=== PATIENT | female | born 1940 | race Caucasian/White ===

== ENCOUNTER 2023-04-19 05:32 | Inpatient (IN) | payer MEDICARE, OTHER, SELFPAY ==
[2023-04-19 05:36] VITALS: BP 184/84; PULSE 63; RESP 18; TEMP 36.6; O2SAT 98; BMI 31.8
--- NOTE | 2023-04-19 05:53 | PC.NURSE ---
patient states she began to develop pain to left knee yesterday before bed. denies any trauma, injury, falls. states pain got worse overnight and into the morning. was unable to move around this morning without increasing pain. tried ibuprofen without relief. left knee appears more swollen than right. pulses and sensation remain intact to bilateral lower extremities. pt states most of the pain is in her knee but pain also travels down calf and up into thigh. denies hip pain. area does not appear red or warm to touch.
--- NOTE | 2023-04-19 06:16 | ED.GENADUL1 ---
HPI - General Adult General Chief complaint: Extremity Injury, Lower Stated complaint: L KNEE PAIN Time Seen by Provider: 04/19/23 06:04 Source: patient Mode of arrival: ambulance History of Present Illness HPI narrative: cc - left knee pain Patient suddenly developed pain in the left knee. She tried tylenol around 1am but that did not help. She called 911 and they gave her Fentanyl on the way to our ED. Related Data Home Medications Medication Instructions Recorded Confirmed acyclovir 400 mg tablet 400 mg PO Q12H 04/19/23 04/19/23 aspirin 81 mg capsule 81 mg PO DAILY 04/19/23 04/19/23 atorvastatin 40 mg tablet 40 mg PO .once a day 04/19/23 04/19/23 carvedilol 12.5 mg tablet 12.5 mg PO Q12H 04/19/23 04/19/23 rivaroxaban 15 mg tablet (Xarelto) 15 mg PO Q24H 04/19/23 04/19/23 Allergies Allergy/AdvReac Type Severity Reaction Status Date / Time lenalidomide [From Revlimid] Allergy Rash Verified 04/26/23 12:40 pregabalin [From Lyrica] Allergy Rash Verified 04/26/23 12:40 oxybutynin AdvReac Mild Rash Verified 04/26/23 12:40 PFSH PFSH Medical History (Updated 04/26/23 @ 14:37 by Sherine Dooley MD) Surgical History (Updated 04/19/23 @ 11:32 by Letty Overton) Family History (Updated 04/19/23 @ 11:35 by Letty Overton) Mother Family history of CHF (congestive heart failure) Family history of diabetes mellitus Family history of stroke Sister Family history of CHF (congestive heart failure) Family history of diabetes mellitus Family history of hypertension Grandmother Family history of cancer Family history of diabetes mellitus Brother No problems noted. Father No problems noted. Social History (Updated 04/19/23 @ 11:38 by Letty Overton) Within the past year, how often did you have a drink containing alcohol: never Score interpretation: A score less than 3 is consistent with normal alcohol consumption. 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 afebrile General: Well-appearing and in no apparent distress. Skin: Warm, dry, no pallor noted. No rash. Cardiovascular: normal peripheral perfusion Respiratory: No accessory muscle use or respiratory distress. Musculoskeletal: marked swelling of the left knee. Tenderness to palpation throughout the left knee. Pain with patellar manipulation. She also has some popliteal tenderness. Remainder of the left LE with normal ROM, no calf tenderness, no pedal or ankle extremity edema/swelling Neurological: A&O x4. No cranial nerve dysfunction observed. No truncal ataxia. Moves all extremities. Sensation intact. Psychiatric: Cooperative and interactive. Normal mood and affect. Constitutional Vital Signs - 24 hr 04/19/23 05:36 Temperature 97.9 F Pulse Rate [Monitor Right] 63 Respiratory Rate 18 Blood Pressure [Right Arm] 184/84 H Pulse Oximetry 98 Oxygen Delivery Method Room Air Course Course Hospital Course: Patient presented to the emergency room yesterday with difficulty ambulating. Secondary to pain in her left knee. No injury. Patient was placed on steroids. She received 1 dose of Toradol into her creatinine came back as elevated, that was discontinued, maintain the steroids overnight. She got 1 dose this morning. She is able to ambulate with some pain but overall much improved. This point should be discharged home in improving condition. Medications see list. Follow-up with her PE CEP within the next week. Vital Signs Vital signs: Vital Signs Temperature 97.9 F 04/19/23 05:36 Pulse Rate 63 04/19/23 05:36 Respiratory Rate 18 04/19/23 05:36 Blood Pressure 184/84 H 04/19/23 05:36 Pulse Oximetry 98 04/19/23 05:36 Oxygen Delivery Method Room Air 04/19/23 05:36 Temperature 97.8 F 04/20/23 05:09 Pulse Rate 77 04/20/23 05:09 Respiratory Rate 18 04/20/23 09:27 Blood Pressure 174/75 H 04/20/23 05:09 Pulse Oximetry 93 L 04/20/23 05:09 Oxygen Delivery Method Room Air 04/20/23 05:09 Medical Decision Making MDM Narrative Medical decision making narrative: peripheral IV and RAD. Established on patient arrival. I asked the emergency Department nurse give the patient site Medrol 125 mg IV. XRays the left knee were obtained. The patient was unable to care for herself at home and despite getting pain medicine by EMS and steroid in the emergency Department she is still unable to ambulate appropriately to function at home and perform her activities of daily living. Call placed to the on-call physician to discuss admission. Dr. Do and I discussed this case and he will admit this patient on behalf of the patient's primary care provider, Dr. Mcfadden Imaging Data xr left knee: Radiologist's impression: FINDINGS: No acute fracture or dislocation is seen. There are mild degenerative changes of the left knee. There is a small left knee joint effusion. IMPRESSION: 1. Left knee joint effusion with no acute osseous abnormality seen. If there is concern for internal derangement, a nonemergent outpatient MRI is recommended. Electronically authenticated by: Malka DALLAS Date: 04/19/2023 06:55 Discharge Plan Discharge Chief Complaint: Extremity Injury, Lower Clinical Impression: Knee pain, left, Osteoarthritis of left knee Patient Disposition: Admitted as Observation Time of Disposition Decision: 08:16 Condition: Good Discharge Date/Time: 04/19/23 08:16
--- NOTE | 2023-04-19 06:33 | XR_ITS ---
The [address] [address] Patient Name: MARTHA GOMEZ MRN: [id number] date: 1940 Sex: F Assigned Patient Location: ER Current Patient Location: ER Accession/Order Number: [id number] Exam Date: 04/19/2023 06:33 Report Date: 04/19/2023 06:55 At the request of: MODESTO BETANCOURT Procedure: XR knee LT 4V EXAM: XR knee LT 4V HISTORY: left knee pain COMPARISON: Left knee radiographs dated 03/16/2023. TECHNIQUE: 4 views of the left knee were obtained. FINDINGS: No acute fracture or dislocation is seen. There are mild degenerative changes of the left knee. There is a small left knee joint effusion. IMPRESSION: 1. Left knee joint effusion with no acute osseous abnormality seen. If there is concern for internal derangement, a nonemergent outpatient MRI is recommended. Electronically authenticated by: Malka DALLAS Date: 04/19/2023 06:55
[2023-04-19] MEDS: METHYLPREDNISOLONE SOD SUCC PF 125 MG/2 ML VIAL IVP ×3 (06:51→19:57)
[2023-04-19 07:37] VITALS: BP 178/82; PULSE 78; RESP 20; O2SAT 97
[2023-04-19 08:48] VITALS: BP 199/78; PULSE 56; PULSE 60; RESP 16; TEMP 37.6; O2SAT 96; BMI 31.3
--- NOTE | 2023-04-19 10:19 | P.HP_ITS ---
H&P: HPI History of Present Illness Chief complaint: L KNEE PAIN Narrative: Presented to the emerged from with increasing left knee pain. Unable to ambulate. She was given hydromorphone and Demerol in the ER. No improvement. Still unable to ambulate secondary to the pain. We will admit patient for evaluation. [facility] Medical History (Updated 04/19/23 @ 11:32 by Letty Overton) Surgical History (Updated 04/19/23 @ 11:32 by Letty Overton) Family History (Updated 04/19/23 @ 11:35 by Letty Overton) Mother Family history of CHF (congestive heart failure) Family history of diabetes mellitus Family history of stroke Sister Family history of CHF (congestive heart failure) Family history of diabetes mellitus Family history of hypertension Grandmother Family history of cancer Family history of diabetes mellitus Brother No problems noted. Father No problems noted. Social History (Updated 04/19/23 @ 11:38 by Letty Overton) Within the past year, how often did you have a drink containing alcohol: never Score interpretation: A score less than 3 is consistent with normal alcohol consumption. 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 Highest level of school completed/degree received: some college, no degree Are you now , , , , never or living with a partner: Little interest or pleasure in doing things: nearly every day Feeling down, depressed, or hopeless: not at all Feel stressed/tense/nervous/anxious/difficulty sleeping: not at all Do you think of yourself as: straight/heterosexual Gender Identity: female Meds Home Medications and Allergies Home Medications Medication Instructions Recorded Confirmed Type acyclovir 400 mg tablet 400 mg PO Q12H 04/19/23 04/19/23 History amlodipine 2.5 mg tablet 2.5 mg PO .once a day 04/19/23 04/19/23 History amlodipine 5 mg tablet 5 mg PO .once a day 04/19/23 04/19/23 History aspirin 81 mg capsule 81 mg PO DAILY 04/19/23 04/19/23 History atorvastatin 40 mg tablet 40 mg PO .once a day 04/19/23 04/19/23 History carvedilol 12.5 mg tablet 12.5 mg PO Q12H 04/19/23 04/19/23 History rivaroxaban 15 mg tablet (Xarelto) 15 mg PO Q24H 04/19/23 04/19/23 History Allergies Allergy/AdvReac Type Severity Reaction Status Date / Time lenalidomide [From Revlimid] Allergy Rash Verified 04/19/23 05:57 pregabalin [From Lyrica] Allergy Rash Verified 04/19/23 05:57 oxybutynin AdvReac Mild Rash Verified 04/19/23 05:57 Exam Constitutional Vital Signs - 24 hr 04/19/23 05:36 04/19/23 07:37 04/19/23 08:48 Temperature 97.9 F 99.6 F Pulse Rate 78 56 L Pulse Rate [Monitor Right] 63 Respiratory Rate 18 20 16 Blood Pressure 178/82 H Blood Pressure [Left Arm] 199/78 H Blood Pressure [Right Arm] 184/84 H Pulse Oximetry 98 97 96 Oxygen Delivery Method Room Air Room Air 04/19/23 08:48 Temperature Pulse Rate Pulse Rate [Monitor Right] 60 Respiratory Rate 16 Blood Pressure Blood Pressure [Left Arm] Blood Pressure [Right Arm] Pulse Oximetry 96 Oxygen Delivery Method Room Air HENMT Common normals: normocephalic and moist oral mucous membranes Respiratory Common normals: normal respiratory effort, no retractions, no use of accessory muscles and clear to auscultation bilaterally Cardio Common normals: no JVD, regular rate and regular rhythm GI Common normals: Normal to inspection, nondistended, normoactive bowel sounds present, soft to palpation and non-tender Extremity Left lower extremity: no findings for knee joint Other: No rubor, calor of the left knee. Does have definite effusion on left knee Assessment and Plan Assessment and Plan (1) Knee pain, left: (2) Osteoarthritis of left knee: (3) Atrial fibrillation: (4) Diabetes: (5) Hypertension: (6) Kidney failure: Plan Left knee pain with inability to ambulate. We will have physical therapy work with her. Start patient on steroids and Toradol just for the first 24 hours. Likely DC tomorrow. May need rehab. Patient likely to stay just [address] patient in observation NIDDM-insulin sliding scale. Likely get worse with steroids. Monitor closely Hypertension-continue home medicationsMonitor closely Remote history of renal failure, will check labs, may need medication adjustment based onLaboratory evaluation
[2023-04-19 10:44] VITALS: BP 160/92; PULSE 61; RESP 14; TEMP 36.5; O2SAT 95
[2023-04-19 10:59] LABS: Basophils Percent Auto 0.1 % (0.2-2.0); Eosinophils Percent Auto 0.1 % (0.9-7.0); Hematocrit 40.2 % (36.0-48.0); Hemoglobin 13.1 g/dL (12.0-16.0); Immature Granulocytes Abs Auto 0.04 10^3/uL (0.00-0.03); Immature Granulocytes Pct Auto 0.4 % (0.0-0.5); Lymphocytes Absolute Auto 1.1 10^3/uL (1.2-3.8); Lymphocytes Percent Auto 10.8 % (20.5-60.0); Mean Corpuscular HGB Conc 32.6 g/dL (29.9-35.2); Mean Corpuscular Hemoglobin 30.9 pg (26.7-34.0); Mean Corpuscular Volume 94.8 fL (81.0-99.0); Mean Platelet Volume 11.1 fL (9.5-13.5); Monocytes Absolute Auto 0.1 10^3/uL (0.3-0.8); Monocytes Percent Auto 0.9 % (1.7-12.0); Neutrophils Absolute Auto 8.8 10^3/uL (1.4-6.5); Neutrophils Percent Auto 87.7 % (43.0-75.0); Platelet Count 191 10^3/uL (150-450); Red Blood Count 4.24 10^6/uL (4.20-5.40); Red Cell Distribution Width 13.2 % (11.0-15.0)
[2023-04-19 11:43] LABS: Erythrocyte Sedimentation Rate 34 mm/hr (<=30)
[2023-04-19 12:13] LABS: Anion Gap 16.1; BUN Creatinine Ratio 12.6; Calcium 8.5 mg/dL (8.5-10.1); Carbon Dioxide 23.4 mmol/L (21.0-32.0); Chloride 104 mmol/L (98-107); Estimated GFR (African America 21 (>=60); Estimated GFR (Non-African Ame 17 (>=60); Glucose 176 mg/dL (74-106); Potassium 4.5 mmol/L (3.5-5.1); Sodium 139 mmol/L (136-145); Uric Acid 5.7 mg/dL (2.6-6.0)
[2023-04-19 12:22] LABS: C Reactive Protein <0.2 mg/dL (<=1.0)
[2023-04-19] MEDS: ACYCLOVIR 200 MG CAPSULE 400 MG PO ×2 (12:33→22:05)
[2023-04-19] MEDS: KETOROLAC TROMETHAMINE 30 MG/ML VIAL 15 MG IVP (12:33)
[2023-04-19] MEDS: CARVEDILOL 12.5 MG TABLET PO ×2 (12:34→22:05)
[2023-04-19 14:11] VITALS: BP 169/72; PULSE 75; RESP 16; TEMP 36.4; O2SAT 96
--- NOTE | 2023-04-19 15:20 | SWNOTE1 ---
SW attempted to see pt, but she was sleeping. SW to check back later.
--- NOTE | 2023-04-19 16:11 | SWNOTE1 ---
SW met with pt to discuss dc needs. Pt does live at home with her , she stated he is worse than her. Pt's daughter does the grocery shopping for them, but she is having knee surgery soon. Her 2 sons also live close by and they also help as needed. Pt does have a rollater at home that she uses. Pt does have the laundry downstairs, but goes 1 step at a time. Pt does not use the upstairs. Pt was just up for the first time to go to the bathroom and she stated it went much better. SW and pt talked about therapy coming in to [facility] and will determine if she has any dc needs. Possible need for HH. Pt stated her had HH, but they just ended. She thinks it was [facility]. Pt then talked about going to the pool in [place] across the street to do rehab on her leg. SW let her know that if she does outpt rehab she cannot do HH. Pt is going to think about it. SW to stop back in tomorrow to re-asses after therapy works with her. SW did review IMM form, pt voiced understanding and had no questions. Pt signed form, original given to pt and copy placed in chart.
[2023-04-19] MEDS: RIVAROXABAN 10 MG TABLET 15 MG PO (19:57)
[2023-04-19 20:09] VITALS: BP 165/84; PULSE 93; RESP 18; TEMP 36.7; O2SAT 97
[2023-04-20] MEDS: METHYLPREDNISOLONE SOD SUCC PF 125 MG/2 ML VIAL IVP ×2 (01:12→05:53)
[2023-04-20 04:00] VITALS: BP 160/67; PULSE 73; RESP 16; TEMP 36.4; O2SAT 94
[2023-04-20 05:09] VITALS: BP 174/75; PULSE 77; RESP 18; TEMP 36.6; O2SAT 93
[2023-04-20 05:27] LABS: Basophils Percent Auto 0.1 % (0.2-2.0); Hemoglobin 13.1 g/dL (12.0-16.0); Immature Granulocytes Abs Auto 0.08 10^3/uL (0.00-0.03); Immature Granulocytes Pct Auto 0.5 % (0.0-0.5); Lymphocytes Absolute Auto 1.4 10^3/uL (1.2-3.8); Lymphocytes Percent Auto 8.3 % (20.5-60.0); Mean Corpuscular HGB Conc 32.8 g/dL (29.9-35.2); Mean Corpuscular Hemoglobin 30.7 pg (26.7-34.0); Mean Corpuscular Volume 93.7 fL (81.0-99.0); Mean Platelet Volume 11.3 fL (9.5-13.5); Monocytes Absolute Auto 0.2 10^3/uL (0.3-0.8); Monocytes Percent Auto 1.2 % (1.7-12.0); Neutrophils Absolute Auto 14.7 10^3/uL (1.4-6.5); Neutrophils Percent Auto 89.9 % (43.0-75.0); Platelet Count 190 10^3/uL (150-450); Red Blood Count 4.27 10^6/uL (4.20-5.40); White Blood Count 16.3 10^3/uL (4.0-11.0)
[2023-04-20 05:35] LABS: Erythrocyte Sedimentation Rate 34 mm/hr (<=30)
[2023-04-20 05:48] LABS: Anion Gap 17.4; BUN Creatinine Ratio 15.9; Calcium 8.5 mg/dL (8.5-10.1); Chloride 103 mmol/L (98-107); Estimated GFR (African America 21 (>=60); Estimated GFR (Non-African Ame 17 (>=60); Glucose 253 mg/dL (74-106); Potassium 4.4 mmol/L (3.5-5.1); Sodium 136 mmol/L (136-145)
[2023-04-20 05:54] LABS: C Reactive Protein <1.0 mg/dL (<=1.0)
--- NOTE | 2023-04-20 08:37 | P.DS_ITS ---
DS: Providers Provider Date of admission: 04/19/23 08:42 Primary care physician: CURT CLARK DS: Diagnosis Discharge Diagnosis (1) Knee pain, left: (2) Osteoarthritis of left knee: (3) Atrial fibrillation: (4) Diabetes: (5) Hypertension: (6) Kidney failure: Plan Left knee pain with inability to ambulate.? We will have physical therapy work with her.? Start patient on steroids and Toradol just for the first 24 hours.? Likely DC tomorrow.? May need rehab.? Patient likely to stay just [address] patient in observation NIDDM-insulin sliding scale.? Likely get worse with steroids.? Monitor closely Hypertension-continue home medicationsMonitor closely Remote history of renal failure, will check labs, may need medication adjustment based onLaboratory evaluation DS: Summary Hospital Course Hospital Course: Patient presented to the emergency room yesterday with difficulty ambulating. Secondary to pain in her left knee. No injury. Patient was placed on steroids. She received 1 dose of Toradol into her creatinine came back as elevated, that was discontinued, maintain the steroids overnight. She got 1 dose this morning. She is able to ambulate with some pain but overall much improved. This point should be discharged home in improving condition. Medications see list. Follow-up with her PE CEP within the next week. Status at Discharge Functional status at discharge: uses cane/walker Time Spent with Patient Time attestation: Total time spent providing and/or coordinating discharge services: Exam Constitutional Vital Signs - 24 hr 04/19/23 08:48 04/19/23 08:48 04/19/23 10:44 Temperature 99.6 F 97.7 F Pulse Rate 56 L 61 Pulse Rate [Monitor Right] 60 Respiratory Rate 16 16 14 Blood Pressure [Left Arm] 199/78 H Blood Pressure [Right Arm] 160/92 H Pulse Oximetry 96 96 95 Oxygen Delivery Method Room Air Room Air Room Air 04/19/23 14:11 04/19/23 20:09 04/20/23 04:00 Temperature 97.5 F L 98.1 F 97.6 F Pulse Rate 75 93 H 73 Pulse Rate [Monitor Right] Respiratory Rate 16 18 16 Blood Pressure [Left Arm] 165/84 H Blood Pressure [Right Arm] 169/72 H 160/67 H Pulse Oximetry 96 97 94 L Oxygen Delivery Method Room Air Room Air Room Air 04/20/23 05:09 Temperature 97.8 F Pulse Rate 77 Pulse Rate [Monitor Right] Respiratory Rate 18 Blood Pressure [Left Arm] Blood Pressure [Right Arm] 174/75 H Pulse Oximetry 93 L Oxygen Delivery Method Room Air Chest Common normals: inspection of chest normal Respiratory Common normals: normal respiratory effort, no use of accessory muscles and clear to auscultation bilaterally Cardio Common normals: no JVD, regular rhythm, S1 normal heart sound and S2 normal heart sound Extremity Common normals: abnormal to inspection (Mild swelling of left knee but overall much improved, no erythema) DS: Data Data Completed and Pending Labs on day of discharge: Labs from last 24 hours 04/20/23 04/19/23 04:55 10:28 WBC 16.3 H 10.0 RBC 4.27 4.24 Hgb 13.1 13.1 Hct 40.0 40.2 MCV 93.7 94.8 MCH 30.7 30.9 MCHC 32.8 32.6 RDW 13.0 13.2 Plt Count 190 191 MPV 11.3 11.1 Neut % (Auto) 89.9 H 87.7 H Lymph % (Auto) 8.3 L 10.8 L [place] % (Auto) 1.2 L 0.9 L Eos % (Auto) 0.0 L 0.1 L Baso % (Auto) 0.1 L 0.1 L Neut # (Auto) 14.7 H 8.8 H Lymph # (Auto) 1.4 1.1 L [place] # (Auto) 0.2 L 0.1 L Eos # (Auto) 0.0 0.0 Baso # (Auto) 0.0 0.0 Abs Immat Gran (auto) 0.08 H 0.04 H Imm/Tot Granulo (auto) 0.5 0.4 ESR 34 H 34 H Sodium 136 139 Potassium 4.4 4.5 Chloride 103 104 Carbon Dioxide 20.0 L 23.4 Anion Gap 17.4 16.1 BUN 42.0 H 34.0 H Creatinine 2.64 H 2.69 H Est GFR ( Amer) 21 L 21 L Est GFR (Non-Af Amer) 17 L 17 L BUN/Creatinine Ratio 15.9 12.6 Glucose 253 H 176 H Uric Acid 5.7 Calcium 8.5 8.5 C-Reactive Protein <1.0 <0.2 Discharge Plan Discharge Disposition: Home, Self-Care Condition: Good Discharge Medications: New prednisone 20 mg tablet 20 mg PO BID 3 Days Qty: 6 0RF Continued acyclovir 400 mg tablet 400 mg PO Q12H atorvastatin 40 mg tablet 40 mg PO .once a day carvedilol 12.5 mg tablet 12.5 mg PO Q12H Xarelto 15 mg tablet 15 mg PO Q24H aspirin 81 mg capsule 81 mg PO DAILY Activity: increase activity as tolerated and resume usual activities as tolerated Diet: regular diet Print Language: Syriac Patient Instructions: Prednisone (By mouth), Knee Pain (GEN) Forms: Portal Instructions Follow Up Appointments: Dr. Bogdan Tomas, April 26 @ 11:30 am Discharge Date/Time: 04/20/23 10:36
[2023-04-20] MEDS: CARVEDILOL 12.5 MG TABLET PO (09:26)
[2023-04-20 09:27] VITALS: RESP 18
[2023-04-20] MEDS: ACYCLOVIR 200 MG CAPSULE 400 MG PO (09:27)
--- NOTE | 2023-04-20 09:38 | CM.NOTE ---
Rounds made with Dr. Do. Plan for discharge is today. Currently Hailee uses a walker in the home she shares with her when needed. Her children live close and help with any grocery shopping or other needs they may have.
--- NOTE | 2023-04-20 09:43 | CM.NOTE ---
Hailee did not feel that she needed any services at this time.
--- NOTE | 2023-04-21 12:30 | CM.DCFOLLOWU ---
Person spoke with:patient How are you feeling? pain in knee again today How is your pain? she is icing it as the pain is going from her knee to her thigh Did you understand your discharge instructions? yes Do you have any questions about your discharge instructions? no Were you given any prescriptions at discharge? yes Were you able to get your prescriptions filled? yes Do you understand how to take your medications as ordered? yes Do you have any questions about your follow up appointment and do you plan to keep your follow up appointment? No questions and yes keeping follow up on 04/26/23 Is there anything else that you would like to discuss? N/A Questions/Comments/Concerns/Other: Advised to go to ER if pain worsens and concerns for it. Also advised to call her PCP to see if they have any other recommendations.
== END 2023-04-20 10:36 | disposition home or self-care (01) | DRG 554 ==
LOC: ER 08:31 → MS 08:46
PROVIDERS: Admitting Provider Family Medicine; Emergency Provider Family Medicine; PCP Family Medicine; Visit Provider Family Medicine
DX: M17.12 Unilateral primary osteoarthritis, left knee (principal); M25.562 Pain in left knee; I48.91 Unspecified atrial fibrillation; N19 Unspecified kidney failure; E11.9 Type 2 diabetes mellitus without complications; I10 Essential (primary) hypertension; Z82.49 Family history of ischemic heart disease and other diseases of the circulatory system; Z79.01 Long term (current) use of anticoagulants; Z79.82 Long term (current) use of aspirin; Z88.8 Allergy status to other drugs, medicaments and biological substances; Z83.3 Family history of diabetes mellitus; Z79.899 Other long term (current) drug therapy; Z82.3 Family history of stroke; Z80.9 Family history of malignant neoplasm, unspecified
CPT/HCPCS: 36415; 73564; 80048; 84550; 85025; 85652; 86140; 96374; 96375; 96376; 99285; J2930

== ENCOUNTER 2023-04-26 12:33 | Emergency (ER) | payer MEDICARE, OTHER, SELFPAY ==
[2023-04-26 12:36] VITALS: BP 141/71; PULSE 68; RESP 18; TEMP 36.3; O2SAT 99; BMI 31.0
[2023-04-26 12:46] LABS: Glucometer 213 mg/dL (74-106)
--- NOTE | 2023-04-26 12:51 | US_ITS ---
The [address] [address] Patient Name: MARTHA GOMEZ MRN: [id number] date: 1940 Sex: F Assigned Patient Location: ED.MAIN Current Patient Location: ER Accession/Order Number: [id number] Exam Date: 04/26/2023 13:15 Report Date: 04/26/2023 13:56 At the request of: FLORENCIA SANTIAGO Procedure: US venous doppler LE LT EXAMINATION: US venous doppler LE LT HISTORY: left thigh pain COMPARISON: No relevant comparison available. FINDINGS: REGION: Left knee THROMBI: None. COMPRESSIBILITY: Normal compressibility. FLOW: Normal waveform and antegrade flow between 5 and 20 cm/s. OTHER: Slightly complex 6.4 x 2.9 x 1.5 cm fluid collection medial to the knee. IMPRESSION: 1. No deep vein thrombus within the left lower extremity. 2. Complex fluid collection medial to the knee; fluid-filled bursa versus complex seroma versus hematoma. Electronically authenticated by: DIANN IBANEZ Date: 04/26/2023 13:56
--- NOTE | 2023-04-26 12:51 | ED_ITS ---
HPI - General Adult General Chief complaint: Dizziness Stated complaint: pre-syncope Time Seen by Provider: 04/26/23 12:44 Source: patient Mode of arrival: Wheelchair Limitations: physical limitation History of Present Illness HPI narrative: the patient has history of DM II who recently was admitted to the hospital for left knee arthritis at that time she was started on prednisone that she finished two days ago,the patient presented to us after she was evaluated by her medical doctor for possible dizziness and low blood pressure, and denied any nausea or vomiting or any decreased by mouth intake but she did mention that she is feeling weak and tired with no fever no chills she also mentioned having left thigh pain but no knee pain anymore and she came here by private car The dizziness is mostly when she standing up and she denies any chest pain or palpitation and any cough Review of systems otherwise negative Related Data Home Medications Medication Instructions Recorded Confirmed acyclovir 400 mg tablet 400 mg PO Q12H 04/19/23 04/19/23 aspirin 81 mg capsule 81 mg PO DAILY 04/19/23 04/19/23 atorvastatin 40 mg tablet 40 mg PO .once a day 04/19/23 04/19/23 carvedilol 12.5 mg tablet 12.5 mg PO Q12H 04/19/23 04/19/23 rivaroxaban 15 mg tablet (Xarelto) 15 mg PO Q24H 04/19/23 04/19/23 Allergies Allergy/AdvReac Type Severity Reaction Status Date / Time lenalidomide [From Revlimid] Allergy Rash Verified 04/26/23 12:40 pregabalin [From Lyrica] Allergy Rash Verified 04/26/23 12:40 oxybutynin AdvReac Mild Rash Verified 04/26/23 12:40 Review of Systems ROS Status of ROS 10 or more systems reviewed and unremarkable except as noted in history and below PFSH PFSH Medical History (Updated 04/26/23 @ 14:37 by Sherine Dooley MD) Surgical History (Updated 04/19/23 @ 11:32 by Letty Overton) Family History (Updated 04/19/23 @ 11:35 by Letty Overton) Mother Family history of CHF (congestive heart failure) Family history of diabetes mellitus Family history of stroke Sister Family history of CHF (congestive heart failure) Family history of diabetes mellitus Family history of hypertension Grandmother Family history of cancer Family history of diabetes mellitus Brother No problems noted. Father No problems noted. Social History (Updated 04/19/23 @ 11:38 by Letty Overton) Within the past year, how often did you have a drink containing alcohol: never Score interpretation: A score less than 3 is consistent with normal alcohol consumption. 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 General: Well-appearing and in no apparent distress. Skin: Warm, dry, no pallor noted. No rash. Head: Normocephalic, atraumatic. Neck: Supple, non-tender. Eye: Pupils are equal, round and EOMI. No scleral icterus. Ears, Nose, Mouth, and Throat: TM are clear, no nasal mucosal hypertrophy. Oral mucosa is moist, no posterior oropharynx erythema, uvula is mid-line Cardiovascular: Regular Rate and Rhythm without murmur, gallop or rub. Respiratory: No accessory muscle use or respiratory distress. Lungs are clear to auscultation, no wheezing, rales or rhonchi Chest Wall: no tenderness Back: No midline thoracic or lumbar vertebral tenderness. No CVA tenderness Musculoskeletal: normal ROM, no calf or popliteal tenderness, tenderness with palpation of the thigh area , no redness and not hotness and and no vascular injury and there is good ant tibial pusle ,no lower extremity edema/swelling GI: Abdomen is soft, non-distended. Normal bowel sounds. No masses appreciated. No tenderness to palpation. No rebound, guarding, or rigidity noted. Neurological: A&O x4. No cranial nerve dysfunction observed. No truncal ataxia. Moves all extremities. Sensation intact. Psychiatric: Cooperative and interactive. Normal mood and affect. Constitutional Vital Signs - 24 hr 04/26/23 12:36 04/26/23 13:27 Temperature 97.4 F L Pulse Rate [Monitor] 68 Pulse Rate [orthostatic lying] 82 Pulse Rate [orthostatic sitting] 87 Pulse Rate [orthostatic standing] 84 Respiratory Rate 18 Blood Pressure [Left Arm] 141/71 H Blood Pressure [orthostatic lying] 141/74 H Blood Pressure [orthostatic sitting] 129/80 H Blood Pressure [orthostatic standing] 126/82 H Pulse Oximetry 99 Oxygen Delivery Method Room Air Course Vital Signs Vital signs: Vital Signs Temperature 97.4 F L 04/26/23 12:36 Pulse Rate 68 04/26/23 12:36 Respiratory Rate 18 04/26/23 12:36 Blood Pressure 141/71 H 04/26/23 12:36 Pulse Oximetry 99 04/26/23 12:36 Oxygen Delivery Method Room Air 04/26/23 12:36 Temperature 97.4 F L 04/26/23 12:36 Pulse Rate 82 04/26/23 13:27 Respiratory Rate 18 04/26/23 12:36 Blood Pressure 141/74 H 04/26/23 13:27 Pulse Oximetry 99 04/26/23 12:36 Oxygen Delivery Method Room Air 04/26/23 12:36 Medical Decision Making [facility] Narrative Medical decision making narrative: EKG showing sinus rhythm with a heart rate of [address] elevation or depression CBC shows mild leukocytosis that is improving compared to the patient's recent CBC the patient chemistry was showing improvement of creat but still CKD Duplex of lower Left extremity -------no DVT The patient will continue supportive care at home with Tylenol after she was feeling much better after she was provided with fluids she was able to ambulate without difficulty, left knee MARK wrap She was instructed to hydrate well as well The patient is to followup with primary care physician in next 2-3 days or to return to the emergency department should any of the signs or symptoms worsen or new symptoms develop. The patient agrees with the following Diagnosis and Treatment plan and the patient will be discharged home. Lab Data Labs: Lab Results 04/26/23 04/26/23 Range/Units 12:42 12:45 WBC 14.2 H (4.0-11.0) 10^3/uL RBC 3.71 L (4.20-5.40) 10^6/uL Hgb 11.5 L (12.0-16.0) g/dL Hct 34.2 L (36.0-48.0) % MCV 92.2 (81.0-99.0) fL MCH 31.0 (26.7-34.0) pg MCHC 33.6 (29.9-35.2) g/dL RDW 12.9 (11.0-15.0) % Plt Count 227 (150-450) 10^3/uL MPV 11.7 (9.5-13.5) fL Neut % (Auto) 74.9 (43.0-75.0) % Lymph % (Auto) 18.4 L (20.5-60.0) % [place] % (Auto) 4.9 (1.7-12.0) % Eos % (Auto) 0.6 L (0.9-7.0) % Baso % (Auto) 0.1 L (0.2-2.0) % Neut # (Auto) 10.6 H (1.4-6.5) 10^3/uL Lymph # (Auto) 2.6 (1.2-3.8) 10^3/uL [place] # (Auto) 0.7 (0.3-0.8) 10^3/uL Eos # (Auto) 0.1 (0.0-0.7) 10^3/uL Baso # (Auto) 0.0 (0.0-0.1) 10^3/uL Abs Immat Gran (auto) 0.15 H (0.00-0.03) 10^3/uL Imm/Tot Granulo (auto) 1.1 H (0.0-0.5) % Sodium 138 (136-145) mmol/L Potassium 4.4 (3.5-5.1) mmol/L Chloride 105 (98-107) mmol/L Carbon Dioxide 22.4 (21.0-32.0) mmol/L Anion Gap 15.0 BUN 45.0 H (7.0-18.0) mg/dL Creatinine 2.36 H (0.55-1.02) mg/dL Est GFR ( Amer) 24 L (>=60) Est GFR (Non-Af Amer) 20 L (>=60) BUN/Creatinine Ratio 19.1 Glucose 207 H (74-106) mg/dL Calcium 8.6 (8.5-10.1) mg/dL Magnesium 2.2 (1.8-2.4) mg/dL Total Bilirubin 0.8 (0.2-1.0) mg/dL AST 28 (15-37) U/L ALT 39 (14-59) U/L Alkaline Phosphatase 95 (46-116) U/L Troponin I High Sens 8.7 (4.0-51.3) pg/mL Total Protein 6.3 L (6.4-8.2) g/dL Albumin 2.9 L (3.4-5.0) g/dL Globulin 3.4 g/dL Albumin/Globulin Ratio 0.9 POC Glucose 213 H (74-106) mg/dL Discharge Plan Discharge Chief Complaint: Dizziness Clinical Impression: CKD (chronic kidney disease), Dehydration Patient Disposition: Home, Self-Care Prescriptions / Home Meds: Discontinued prednisone 20 mg tablet 20 mg PO BID 3 Days Qty: 6 0RF No Action acyclovir 400 mg tablet 400 mg PO Q12H atorvastatin 40 mg tablet 40 mg PO .once a day carvedilol 12.5 mg tablet 12.5 mg PO Q12H Xarelto 15 mg tablet 15 mg PO Q24H aspirin 81 mg capsule 81 mg PO DAILY Instructions: Dehydration (ED) Stand Alone Forms: Portal Instructions Referrals: Karie Mcfadden MD [Primary Care Provider] - 1 week
--- NOTE | 2023-04-26 12:52 | ECG_ITS ---
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
[2023-04-26] MEDS: 0.9 % SODIUM CHLORIDE 1,000 ML 1000 ML IV (13:08)
[2023-04-26 13:22] LABS: Basophils Percent Auto 0.1 % (0.2-2.0); Eosinophils Absolute Auto 0.1 10^3/uL (0.0-0.7); Eosinophils Percent Auto 0.6 % (0.9-7.0); Hematocrit 34.2 % (36.0-48.0); Hemoglobin 11.5 g/dL (12.0-16.0); Immature Granulocytes Abs Auto 0.15 10^3/uL (0.00-0.03); Immature Granulocytes Pct Auto 1.1 % (0.0-0.5); Lymphocytes Absolute Auto 2.6 10^3/uL (1.2-3.8); Lymphocytes Percent Auto 18.4 % (20.5-60.0); Mean Corpuscular HGB Conc 33.6 g/dL (29.9-35.2); Mean Corpuscular Volume 92.2 fL (81.0-99.0); Mean Platelet Volume 11.7 fL (9.5-13.5); Monocytes Absolute Auto 0.7 10^3/uL (0.3-0.8); Monocytes Percent Auto 4.9 % (1.7-12.0); Neutrophils Absolute Auto 10.6 10^3/uL (1.4-6.5); Neutrophils Percent Auto 74.9 % (43.0-75.0); Platelet Count 227 10^3/uL (150-450); Red Blood Count 3.71 10^6/uL (4.20-5.40); Red Cell Distribution Width 12.9 % (11.0-15.0); White Blood Count 14.2 10^3/uL (4.0-11.0)
[2023-04-26 13:27] VITALS: BP 126/82; BP 129/80; BP 141/74; PULSE 82; PULSE 84; PULSE 87
[2023-04-26 13:51] LABS: Alanine Aminotransferase 39 U/L (14-59); Albumin Globulin Ratio 0.9; Albumin Level 2.9 g/dL (3.4-5.0); Alkaline Phosphatase 95 U/L (46-116); Aspartate Amino Transferase 28 U/L (15-37); BUN Creatinine Ratio 19.1; Bilirubin Total 0.8 mg/dL (0.2-1.0); Calcium 8.6 mg/dL (8.5-10.1); Carbon Dioxide 22.4 mmol/L (21.0-32.0); Chloride 105 mmol/L (98-107); Estimated GFR (African America 24 (>=60); Estimated GFR (Non-African Ame 20 (>=60); Globulin 3.4 g/dL; Glucose 207 mg/dL (74-106); Magnesium 2.2 mg/dL (1.8-2.4); Potassium 4.4 mmol/L (3.5-5.1); Sodium 138 mmol/L (136-145); Total Protein 6.3 g/dL (6.4-8.2); Troponin I High Sensitivity 8.7 pg/mL (4.0-51.3)
[2023-04-26 14:37] VITALS: BP 180/88; PULSE 82; RESP 20; O2SAT 98
[2023-04-26 15:01] VITALS: BP 180/78; PULSE 82; RESP 181; O2SAT 96
== END 2023-04-26 15:02 | disposition home or self-care (01) ==
PROVIDERS: Emergency Provider Emergency Medicine; PCP Family Medicine
DX: E11.22 Type 2 diabetes mellitus with diabetic chronic kidney disease (principal); N18.9 Chronic kidney disease, unspecified; E86.0 Dehydration; M79.652 Pain in left thigh; Z79.01 Long term (current) use of anticoagulants; Z79.82 Long term (current) use of aspirin; Z79.899 Other long term (current) drug therapy
CPT/HCPCS: 36415; 80053; 83735; 84484; 85025; 93005; 93971; 99285

== ENCOUNTER 2023-06-13 08:03 | Outpatient (OUT) | payer MEDICARE, OTHER, SELFPAY ==
[2023-06-13 08:45] LABS: Creatinine Urine Random 51.33 mg/dL (20.00-300.00); Protein Creatinine Ratio Urine 0.64
[2023-06-13 08:57] LABS: Hematocrit 40.2 % (36.0-48.0); Hemoglobin 12.8 g/dL (12.0-16.0); Mean Corpuscular HGB Conc 31.8 g/dL (29.9-35.2); Mean Corpuscular Hemoglobin 30.8 pg (26.7-34.0); Mean Corpuscular Volume 96.9 fL (81.0-99.0); Mean Platelet Volume 11.2 fL (9.5-13.5); Platelet Count 226 10^3/uL (150-450); Red Blood Count 4.15 10^6/uL (4.20-5.40); Red Cell Distribution Width 13.5 % (11.0-15.0); White Blood Count 7.9 10^3/uL (4.0-11.0)
[2023-06-13 09:12] LABS: Albumin Level 3.4 g/dL (3.4-5.0); Anion Gap 13.6; BUN Creatinine Ratio 13.1; Calcium 8.9 mg/dL (8.5-10.1); Carbon Dioxide 22.5 mmol/L (21.0-32.0); Chloride 105 mmol/L (98-107); Estimated GFR (African America 24 (>=60); Estimated GFR (Non-African Ame 20 (>=60); Glucose 130 mg/dL (74-106); Phosphorus 4.4 mg/dL (2.6-4.7); Potassium 5.1 mmol/L (3.5-5.1); Sodium 136 mmol/L (136-145); Uric Acid 6.2 mg/dL (2.6-6.0)
[2023-06-13 10:05] LABS: Bilirubin Urine NEGATIVE (NEGATIVE); Blood Urine NEGATIVE (NEGATIVE); Clarity Urine CLEAR (CLEAR); Color Urine LT. YELLOW (YELLOW); Glucose Urine UA NEGATIVE (NEGATIVE); Ketones Urine NEGATIVE (NEGATIVE); Leukocyte Esterase Urine NEGATIVE (NEGATIVE); Nitrite Urine NEGATIVE (NEGATIVE); Protein Urine TRACE mg/dL (NEG/TRACE); Specific Gravity Urine 1.015 (1.005-1.025); Urobilinogen Urine 0.2 EU/dL (0.2-1.0); pH Urine 6.5 (5.0-9.0)
[2023-06-13 10:23] LABS: RBC Urine 0-2 #/HPF (0-2); WBC Urine NONE SEEN #/HPF (NONE SEEN)
[2023-06-13 10:24] LABS: Bacteria Urine NONE SEEN #/HPF (NONE SEEN); Cast Seen? NONE SEEN #/LPF (NONE SEEN); Crystals Seen? None Seen #/HPF (None Seen); Mucus Urine NONE SEEN (NONE SEEN); Squamous Epithelial Cell Urine RARE #/LPF (NONE/RARE)
[2023-06-14 11:11] LABS: PTH, Intact 52 pg/mL (15-65)
== END 2023-06-13 08:04 | disposition home or self-care (01) ==
LOC: LAB 08:04
PROVIDERS: PCP Family Medicine; Visit Provider Internal Medicine
DX: I12.9 Hypertensive chronic kidney disease with stage 1 through stage 4 chronic kidney disease, or unspecified chronic kidney disease (principal); N18.4 Chronic kidney disease, stage 4 (severe); N20.0 Calculus of kidney; E11.22 Type 2 diabetes mellitus with diabetic chronic kidney disease; N25.81 Secondary hyperparathyroidism of renal origin; E55.9 Vitamin D deficiency, unspecified; R31.29 Other microscopic hematuria; P19.9 Metabolic acidemia in newborn, unspecified; C90.00 Multiple myeloma not having achieved remission
CPT/HCPCS: 36415; 80069; 81001; 82306; 82570; 83735; 83970; 84156; 84550; 85027

== ENCOUNTER 2023-06-19 02:56 | Observation (INO) | payer MEDICARE, OTHER, SELFPAY ==
[2023-06-19] VITALS (46 sets, daily range): BP systolic 117–199; BP diastolic 69–88; PULSE 63–99; RESP 6–24; TEMP 36.4–37.1; O2SAT 94–99; BMI 29.9; BMI 30.6
--- NOTE | 2023-06-19 03:13 | ED_ITS ---
HPI - Neuro Symptoms/Deficit General Chief Complaint: Neuro Symptoms/Deficit Stated Complaint: dizziness Time Seen by Provider: 06/19/23 03:07 Source: patient Mode of arrival: ambulance History of Present Illness HPI Narrative: presents complaining of dizziness. States she got up to go to the bathroom. Describes sitting on the side of the bed and room spinning with associated nausea. No headache or vision changes. No extremity weakness but just feels weak all over. legs won't hold her up because she is dizzy. started about one hour ago after she she got up to go to the restroom . Patient has history of A. Fib for which she takes Xarelto. Believes she has had an episode of dizziness before but not able to remember when. Onset (ago): hour(s) Related Data Home Medications Medication Instructions Recorded Confirmed acyclovir 400 mg tablet 400 mg PO Q12H 04/19/23 04/19/23 aspirin 81 mg capsule 81 mg PO DAILY 04/19/23 04/19/23 atorvastatin 40 mg tablet 40 mg PO .once a day 04/19/23 04/19/23 carvedilol 12.5 mg tablet 12.5 mg PO Q12H 04/19/23 04/19/23 rivaroxaban 15 mg tablet (Xarelto) 15 mg PO Q24H 04/19/23 04/19/23 Allergies Allergy/AdvReac Type Severity Reaction Status Date / Time lenalidomide [From Revlimid] Allergy Rash Verified 06/19/23 03:03 pregabalin [From Lyrica] Allergy Rash Verified 06/19/23 03:03 oxybutynin AdvReac Mild Rash Verified 06/19/23 03:03 Review of Systems ROS Status of ROS 10 or more systems reviewed and unremarkable except as noted in history and below [facility] Medical History (Updated 06/19/23 @ 06:21 by Chad Garcia MD) Surgical History (Updated 04/19/23 @ 11:32 by Letty Overton) Family History (Updated 04/19/23 @ 11:35 by Letty Overton) Mother Family history of CHF (congestive heart failure) Family history of diabetes mellitus Family history of stroke Sister Family history of CHF (congestive heart failure) Family history of diabetes mellitus Family history of hypertension Grandmother Family history of cancer Family history of diabetes mellitus Brother No problems noted. Father No problems noted. Social History (Updated 04/19/23 @ 11:38 by Letty Overton) Within the past year, how often did you have a drink containing alcohol: never Score interpretation: A score less than 3 is consistent with normal alcohol consumption. 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 Highest level of school completed/degree received: some college, no degree Are you now , , , , never or living with a partner: Little interest or pleasure in doing things: nearly every day Feeling down, depressed, or hopeless: not at all Feel stressed/tense/nervous/anxious/difficulty sleeping: not at all Do you think of yourself as: straight/heterosexual Gender Identity: female Exam Constitutional Vital Signs, click to edit/add: Last Vital Signs Temp 98.3 F 06/19/23 02:59 Pulse 83 06/19/23 05:20 Resp 16 06/19/23 05:20 BP 136/75 06/19/23 05:16 Pulse Ox 98 06/19/23 05:20 O2 Del Method Room Air 06/19/23 02:59 Common normals: no apparent distress, oriented x3, healthy appearing and alert Eye Common normals: EOMs intact bilaterally and conjunctivae normal Respiratory Common normals: normal respiratory effort, no retractions, no use of accessory muscles and clear to auscultation bilaterally Cardio Common normals: regular rate, regular rhythm, S1 normal heart sound and S2 normal heart sound GI Common normals: Normal to inspection, nondistended, normoactive bowel sounds present, soft to palpation and non-tender Extremity Common normals: normal to inspection and normal capillary refill Neuro Common normals: oriented x3, CN's II-XII intact bilaterally, moves all extremities and no focal motor deficits Psych Appearance: grossly normal Course Vital Signs Vital signs: Vital Signs Temperature 98.3 F 06/19/23 02:59 Pulse Rate 66 06/19/23 02:59 Respiratory Rate 22 06/19/23 02:59 Blood Pressure 190/82 H 06/19/23 02:59 Pulse Oximetry 98 06/19/23 02:59 Oxygen Delivery Method Room Air 06/19/23 02:59 Temperature 98.3 F 06/19/23 02:59 Pulse Rate 83 06/19/23 05:20 Respiratory Rate 16 06/19/23 05:20 Blood Pressure 136/75 06/19/23 05:16 Pulse Oximetry 98 06/19/23 05:20 Oxygen Delivery Method Room Air 06/19/23 02:59 MDM - Neuro Symptoms/Deficit MDM Narrative Medical decision making narrative: patient presents with complaint of dizziness. room off balance. She believes she has had dizziness in the past but not able to recall when. Dizziness associated with nausea. She also complains of generalized weakness. No headache. CT with old infarct. No acute finding. BP elevated at 190/82 on admission and improved to 152/77 after IV hydralazine. Given Ativan and antivert for dizziness without improvement. labs without acute findings. She has history of A. fib and takes Xarelto and 81mg ASA. Discussed with pension fund manager [facility] Stroke physician Dr Morgan who recommended a dose of benadryl for her dizziness as well. [place] she could stay here for workup. Discussed with hospitalist Dr Mccullough and patient accepted for admission Lab Data Labs: Lab Results 06/19/23 06/19/23 Range/Units 03:02 05:25 WBC 9.0 (4.0-11.0) 10^3/uL RBC 3.78 L (4.20-5.40) 10^6/uL Hgb 12.0 (12.0-16.0) g/dL Hct 37.3 (36.0-48.0) % MCV 98.7 (81.0-99.0) fL MCH 31.7 (26.7-34.0) pg MCHC 32.2 (29.9-35.2) g/dL RDW 13.6 (11.0-15.0) % Plt Count 190 (150-450) 10^3/uL MPV 11.0 (9.5-13.5) fL Neut % (Auto) 51.4 (43.0-75.0) % Lymph % (Auto) 38.1 (20.5-60.0) % [place] % (Auto) 8.1 (1.7-12.0) % Eos % (Auto) 1.8 (0.9-7.0) % Baso % (Auto) 0.3 (0.2-2.0) % Neut # (Auto) 4.6 (1.4-6.5) 10^3/uL Lymph # (Auto) 3.4 (1.2-3.8) 10^3/uL [place] # (Auto) 0.7 (0.3-0.8) 10^3/uL Eos # (Auto) 0.2 (0.0-0.7) 10^3/uL Baso # (Auto) 0.0 (0.0-0.1) 10^3/uL Abs Immat Gran (auto) 0.03 (0.00-0.03) 10^3/uL Imm/Tot Granulo (auto) 0.3 (0.0-0.5) % Sodium 138 (136-145) mmol/L Potassium 4.5 (3.5-5.1) mmol/L Chloride 108 H (98-107) mmol/L Carbon Dioxide 20.5 L (21.0-32.0) mmol/L Anion Gap 14.0 BUN 32.0 H (7.0-18.0) mg/dL Creatinine 2.62 H (0.55-1.02) mg/dL Est GFR ( Amer) 21 L (>=60) Est GFR (Non-Af Amer) 18 L (>=60) BUN/Creatinine Ratio 12.2 Glucose 117 H (74-106) mg/dL Calcium 8.3 L (8.5-10.1) mg/dL Troponin I High Sens 8.8 (4.0-51.3) pg/mL Urine Color Lt. yellow (YELLOW) Urine Clarity Clear (CLEAR) Urine pH 6.0 (5.0-9.0) Ur Specific [place] <=1.005 A (1.005-1.025) Urine Protein Trace (NEG/TRACE) mg/dL Urine Glucose (UA) Negative (NEGATIVE) mg/dL Urine Ketones Negative (NEGATIVE) mg/dL Urine Occult Blood Negative (NEGATIVE) Urine Nitrite Negative (NEGATIVE) Urine Bilirubin Negative (NEGATIVE) Urine Urobilinogen 0.2 (0.2-1.0) EU/dL Ur Leukocyte Esterase Negative (NEGATIVE) Discharge Plan Discharge Chief Complaint: Neuro Symptoms/Deficit Clinical Impression: Vertigo, Hypertension Patient Disposition: Admitted as Observation
--- NOTE | 2023-06-19 03:15 | XR_ITS ---
The [address] [address] Patient Name: MARTHA GOMEZ MRN: [id number] date: 1940 Sex: F Assigned Patient Location: ED.MAIN Current Patient Location: ER Accession/Order Number: [id number] Exam Date: 06/19/2023 03:25 Report Date: 06/19/2023 04:24 At the request of: RACH DAVALOS Procedure: XR chest 1V EXAM: XR chest 1V HISTORY: Nausea. COMPARISON: None. TECHNIQUE: AP erect portable chest radiograph performed. FINDINGS: Partially imaged right jugular central venous Mediport with the distal tip extending into the distal aspect of the superior vena cava. The trachea is normal. There is mild prominence of the cardiac silhouette. The mediastinal silhouette and hilar shadows are unremarkable. The lung volumes are normal. The lung chappell are clear. There is no pneumothorax and there is no acute osseous abnormality. XR/XR chest 1V IMPRESSION: There is no acute cardiopulmonary process. Electronically authenticated by: BARBARA BORJAS Date: 06/19/2023 04:24
--- NOTE | 2023-06-19 03:15 | CT_ITS ---
The [address] [address] Patient Name: MARTHA GOMEZ MRN: [id number] date: 1940 Sex: F Assigned Patient Location: ED.MAIN Current Patient Location: Accession/Order Number: [id number] Exam Date: 06/19/2023 03:25 Report Date: 06/19/2023 04:07 At the request of: RACH DAVALOS Procedure: CT head/brain wo con INDICATION: 83 years old; Female. Dizziness, headache, nausea for 2 hours. History of stroke, atrial fibrillation, hypertension, and diabetes. History of myeloma and renal failure. TECHNIQUE: CT Head (ax/cor/sag reformats). Ionizing radiation dose reduced via iterative reconstruction/FBP blend and body size kV/mA adjustment. Comparison: None FINDINGS: POSTOPERATIVE CHANGES: None. BRAIN PARENCHYMA: Chronic infarction in the inferior aspect of the cerebellum on the right. No intraparenchymal or extra-axial hemorrhage. No mass effect. No midline shift or herniation. Old lacunar infarction head of the right caudate. Normal gregg/white differentiation. VENTRICLES/EXTRA-AXIAL SPACES: Enlarged, consistent with atrophy. SINUSES/MASTOIDS: Mild thickening in the ethmoid sinuses. No fluid levels. Chronic thickening and bony thickening in the left sphenoid sinus. Mastoids and middle ears are clear. Nasal septal deviation to the left with spur formation. MSK: No displaced or depressed calvarial fracture is noted. OTHER: No hyperdense intraluminal thrombus is seen. Vascular calcifications are noted. CT/CT head/brain wo con IMPRESSION: 1. Old infarct right cerebellum. Old lacunar infarction right caudate head. 2. No acute intracranial abnormality. No hemorrhage or mass effect. 3. Atrophy. 4. Vascular calcification. Electronically authenticated by: FLAKO RIVERA Date: 06/19/2023 04:07
--- NOTE | 2023-06-19 03:15 | ECG_ITS ---
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
--- NOTE | 2023-06-19 03:22 | PC.NURSE ---
placed by ems
[2023-06-19 03:23] LABS: Basophils Percent Auto 0.3 % (0.2-2.0); Eosinophils Absolute Auto 0.2 10^3/uL (0.0-0.7); Eosinophils Percent Auto 1.8 % (0.9-7.0); Hematocrit 37.3 % (36.0-48.0); Immature Granulocytes Abs Auto 0.03 10^3/uL (0.00-0.03); Immature Granulocytes Pct Auto 0.3 % (0.0-0.5); Lymphocytes Absolute Auto 3.4 10^3/uL (1.2-3.8); Lymphocytes Percent Auto 38.1 % (20.5-60.0); Mean Corpuscular HGB Conc 32.2 g/dL (29.9-35.2); Mean Corpuscular Hemoglobin 31.7 pg (26.7-34.0); Mean Corpuscular Volume 98.7 fL (81.0-99.0); Monocytes Absolute Auto 0.7 10^3/uL (0.3-0.8); Monocytes Percent Auto 8.1 % (1.7-12.0); Neutrophils Absolute Auto 4.6 10^3/uL (1.4-6.5); Neutrophils Percent Auto 51.4 % (43.0-75.0); Platelet Count 190 10^3/uL (150-450); Red Blood Count 3.78 10^6/uL (4.20-5.40); Red Cell Distribution Width 13.6 % (11.0-15.0)
[2023-06-19 03:36] LABS: BUN Creatinine Ratio 12.2; Calcium 8.3 mg/dL (8.5-10.1); Carbon Dioxide 20.5 mmol/L (21.0-32.0); Chloride 108 mmol/L (98-107); Estimated GFR (African America 21 (>=60); Estimated GFR (Non-African Ame 18 (>=60); Glucose 117 mg/dL (74-106); Potassium 4.5 mmol/L (3.5-5.1); Sodium 138 mmol/L (136-145); Troponin I High Sensitivity 8.8 pg/mL (4.0-51.3)
[2023-06-19] MEDS: MECLIZINE HCL 12.5 MG TABLET 25 MG PO ×3 (03:50→18:57)
[2023-06-19] MEDS: LORAZEPAM 2 MG/ML 1 ML VIAL 0.5 MG IV (03:51)
[2023-06-19] MEDS: HYDRALAZINE HCL 20 MG/ML VIAL 5 MG IVP ×2 (03:52→04:55)
[2023-06-19 05:34] LABS: Bilirubin Urine NEGATIVE (NEGATIVE); Blood Urine NEGATIVE (NEGATIVE); Clarity Urine CLEAR (CLEAR); Color Urine LT. YELLOW (YELLOW); Glucose Urine UA NEGATIVE (NEGATIVE); Ketones Urine NEGATIVE (NEGATIVE); Leukocyte Esterase Urine NEGATIVE (NEGATIVE); Nitrite Urine NEGATIVE (NEGATIVE); Protein Urine TRACE mg/dL (NEG/TRACE); Specific Gravity Urine <=1.005 (1.005-1.025); Urobilinogen Urine 0.2 EU/dL (0.2-1.0)
[2023-06-19 05:35] LABS: Urine Microscopic Indicated NO
--- NOTE | 2023-06-19 05:57 | PC.NURSE ---
patient to sit patient up. patient was able to get her self to sit up, but only one leg off of the bed. Patient then proceeded to slump over to the left, claiming she was just too weak. laid patient back down and notified physician. Dr. chambers wanted patient to attempt to stand. in a two person assist, patient was stood at bedside. patient began to wabble back and forth and moaning. when patient was asked to decribe what she was feeling, she could not. She is unable to say if she is dizzy or weak. She didnt know if she felt like the room was spinning. patient was laid back down
[2023-06-19] MEDS: DIPHENHYDRAMINE HCL 50 MG/ML (1ML) VIAL 25 MG IV (06:34)
--- NOTE | 2023-06-19 10:26 | MR_ITS ---
The [address] [address] Patient Name: MARTHA GOMEZ MRN: [id number] date: 1940 Sex: F Assigned Patient Location: MS Current Patient Location: MS Accession/Order Number: [id number] Exam Date: 06/19/2023 12:55 Report Date: 06/19/2023 14:15 At the request of: NIKOLAS BROWNLEE Procedure: MR head/brain wo con EXAM: MR head/brain wo con HISTORY: vertigo, cerebrovascular disease COMPARISON: CT head 06/19/2023. TECHNIQUE: Multiplanar multisequence MR imaging of the brain was performed without intravenous contrast. FINDINGS: Calvarium/skull base: No focal marrow replacing lesion suggestive of neoplasm. Orbits: Bilateral [place] ocular lens replacements. Paranasal sinuses: Imaged portions clear Brain: No restricted diffusion. Remote bilateral tiny thalamic and right basal ganglia lacunar infarcts. Remote right cerebellar infarcts. Minimal superimposed T2 FLAIR hyperintensities are present involving the right greater than left frontal white matter which most commonly relates to sequela small vessel disease. Moderate parenchymal volume loss. No mass effect, hemorrhage, or hydrocephalus. Grossly normal flow-related signal in the major intracranial arteries and dural sinuses. MR/MR head/brain wo con IMPRESSION: 1. No acute infarct. No acute intracranial process. 2. Remote infarcts involving supratentorial and infratentorial brain detailed above. 3. Mild senescent change. Electronically authenticated by: KATHY ANDERSON Date: 06/19/2023 14:15
[2023-06-19 11:36] LABS: Glucometer 113 mg/dL (74-106)
--- NOTE | 2023-06-19 12:13 | P.HP_ITS ---
H&P: HPI History of Present Illness Chief complaint: Dizziness Narrative: 83 y/o female to ER with dizziness. Woke up from sleep and after sat up developed sudden onset of dizziness. C/o room spinning and severe nausea but no emesis. Legs felt weak and hard to walk. History of afib and on Xarelto. Prior stroke 5-10 years ago and c/o balance off since but no focal deficits. Dizziness persisted and to ER. CT head showed old stroke but no acute change. Given meclizine and ativan but continued symptoms. ER spoke to stroke alert and neurology advised able to keep here and admitted. Feels better this am and minimal symptoms if sit still. If attempt to sit up or move develops severe room spinning. Review of Systems ROS Constitutional Denies: fever, chills or night sweats Cardiovascular Denies: chest pain, palpitations or edema Respiratory Denies: shortness of breath, cough or wheezing Gastrointestinal Reports: nausea; Denies: abdominal pain, vomiting or diarrhea Genitourinary Denies: painful urination [facility] Medical History (Updated 06/19/23 @ 10:23 by Carlos Eduardo Mccullough MD) Surgical History (Updated 04/19/23 @ 11:32 by Letty Overton) Family History (Updated 04/19/23 @ 11:35 by Letty Overton) Mother Family history of CHF (congestive heart failure) Family history of diabetes mellitus Family history of stroke Sister Family history of CHF (congestive heart failure) Family history of diabetes mellitus Family history of hypertension Grandmother Family history of cancer Family history of diabetes mellitus Brother No problems noted. Father No problems noted. Social History (Updated 04/19/23 @ 11:38 by Letty Overton) Within the past year, how often did you have a drink containing alcohol: never Score interpretation: A score less than 3 is consistent with normal alcohol consumption. 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 Highest level of school completed/degree received: some college, no degree Are you now , , , , never or living with a partner: Little interest or pleasure in doing things: nearly every day Feeling down, depressed, or hopeless: not at all Feel stressed/tense/nervous/anxious/difficulty sleeping: not at all Do you think of yourself as: straight/heterosexual Gender Identity: female Meds Home Medications and Allergies Home Medications Medication Instructions Recorded Confirmed Type acyclovir 400 mg tablet 400 mg PO Q12H 04/19/23 06/19/23 History aspirin 81 mg capsule 81 mg PO DAILY 04/19/23 06/19/23 History atorvastatin 40 mg tablet 40 mg PO .once a day 04/19/23 06/19/23 History carvedilol 12.5 mg tablet 12.5 mg PO Q12H 04/19/23 06/19/23 History rivaroxaban 15 mg tablet (Xarelto) 15 mg PO Q24H 04/19/23 06/19/23 History Allergies Allergy/AdvReac Type Severity Reaction Status Date / Time lenalidomide [From Revlimid] Allergy Rash Verified 06/19/23 03:03 pregabalin [From Lyrica] Allergy Rash Verified 06/19/23 03:03 oxybutynin AdvReac Mild Rash Verified 06/19/23 03:03 Exam Constitutional Vital Signs, click to edit/add: Last Vital Signs Temp 97.6 F 06/19/23 09:41 Pulse 88 06/19/23 09:41 Resp 18 06/19/23 09:41 BP 171/78 H 06/19/23 09:41 Pulse Ox 98 06/19/23 09:41 O2 Del Method Room Air 06/19/23 09:41 Documenting provider has reviewed patient's vital signs: yes Common normals: no apparent distress, oriented x3 and alert HENMT Common normals: normocephalic Eye Common normals: PERRL and EOMs intact bilaterally Respiratory Common normals: normal respiratory effort and clear to auscultation bilaterally Cardio Common normals: regular rate and regular rhythm; gallops detected, murmurs detected and rub detected GI Common normals: Normal to inspection, nondistended, normoactive bowel sounds present and non-tender Extremity General: no edema Results Labs Labs: Short CBC 06/19/23 Range/Units 03:02 WBC 9.0 (4.0-11.0) 10^3/uL Hgb 12.0 (12.0-16.0) g/dL Hct 37.3 (36.0-48.0) % Plt Count 190 (150-450) 10^3/uL BMP 06/19/23 03:02 Sodium 138 Potassium 4.5 Chloride 108 H Carbon Dioxide 20.5 L BUN 32.0 H Creatinine 2.62 H Glucose 117 H Calcium 8.3 L Urine 06/19/23 Range/Units 05:25 Urine Color Lt. yellow (YELLOW) Urine Clarity Clear (CLEAR) Urine pH 6.0 (5.0-9.0) Ur Specific [place] <=1.005 A (1.005-1.025) Urine Protein Trace (NEG/TRACE) mg/dL Urine Glucose (UA) Negative (NEGATIVE) mg/dL Imaging CT scan - head: Attestation: I have reviewed the pertinent imaging results. Assessment and Plan Assessment and Plan (1) Vertigo: (2) Cerebrovascular disease: (3) Type 2 diabetes mellitus with hyperglycemia: (4) Hypertension: (5) Paroxysmal atrial fibrillation: (6) CKD (chronic kidney disease) stage 4, GFR 15-29 ml/min: Plan Sudden onset of vertigo and unclear etiology. History of CVA and on aspirin and xaralto. Check MRI brain. Start PT and vestibular rehab. Start meclizine and solu-medrol. If new stroke will need to consult tele-stroke. BP elevated and will allow hypertension to help perfusion in case of new stroke. Resume home medication.
[2023-06-19] MEDS: ACYCLOVIR 200 MG CAPSULE 400 MG PO ×2 (14:11→21:23)
[2023-06-19] MEDS: ASPIRIN 81 MG TAB.CHEW PO (14:11)
[2023-06-19] MEDS: CARVEDILOL 12.5 MG TABLET PO ×2 (14:11→18:58)
[2023-06-19] MEDS: METHYLPREDNISOLONE SOD SUCC PF 125 MG/2 ML VIAL 60 MG IVP ×2 (14:11→18:57)
[2023-06-19] MEDS: ONDANSETRON 4 MG RAPDIS TABLET PO (14:16)
[2023-06-19 18:43] LABS: Glucometer 186 mg/dL (74-106)
[2023-06-19] MEDS: INSULIN ASPART 300 UNIT/3 ML PEN SUBQ ×2 (18:57→21:24)
[2023-06-19] MEDS: RIVAROXABAN 10 MG TABLET 15 MG PO (18:58)
[2023-06-19 21:11] LABS: Glucometer 269 mg/dL (74-106)
[2023-06-20] MEDS: METHYLPREDNISOLONE SOD SUCC PF 125 MG/2 ML VIAL 60 MG IVP ×2 (00:53→05:53)
[2023-06-20 04:27] VITALS: BP 156/86; PULSE 88; RESP 16; TEMP 36.4; O2SAT 95
[2023-06-20 04:44] LABS: Basophils Percent Auto 0.1 % (0.2-2.0); Hematocrit 40.7 % (36.0-48.0); Hemoglobin 13.4 g/dL (12.0-16.0); Immature Granulocytes Abs Auto 0.07 10^3/uL (0.00-0.03); Immature Granulocytes Pct Auto 0.5 % (0.0-0.5); Lymphocytes Absolute Auto 1.2 10^3/uL (1.2-3.8); Lymphocytes Percent Auto 7.9 % (20.5-60.0); Mean Corpuscular HGB Conc 32.9 g/dL (29.9-35.2); Mean Corpuscular Hemoglobin 31.5 pg (26.7-34.0); Mean Corpuscular Volume 95.5 fL (81.0-99.0); Mean Platelet Volume 11.1 fL (9.5-13.5); Monocytes Percent Auto 0.3 % (1.7-12.0); Neutrophils Percent Auto 91.2 % (43.0-75.0); Platelet Count 193 10^3/uL (150-450); Red Blood Count 4.26 10^6/uL (4.20-5.40); Red Cell Distribution Width 13.5 % (11.0-15.0); White Blood Count 15.3 10^3/uL (4.0-11.0)
[2023-06-20 04:52] LABS: Estimated Average Glucose 148 mg/dL; Glycohemoglobin A1C 6.8 % (4.5-6.2)
[2023-06-20 04:59] LABS: Anion Gap 17.3; BUN Creatinine Ratio 15.3; Carbon Dioxide 16.2 mmol/L (21.0-32.0); Chloride 107 mmol/L (98-107); Estimated GFR (African America 21 (>=60); Estimated GFR (Non-African Ame 18 (>=60); Glucose 229 mg/dL (74-106); Potassium 5.5 mmol/L (3.5-5.1); Sodium 135 mmol/L (136-145)
[2023-06-20 06:56] LABS: Chol HDL Ratio 3.2; Cholesterol 229 mg/dL (<=200); HDL Cholesterol 71 mg/dL (40-60); Triglycerides 87 mg/dL (<=150); VLDL CHOLESTEROL 17.4 mg/dL
[2023-06-20 07:29] VITALS: PULSE 68; RESP 16
[2023-06-20] MEDS: INSULIN ASPART 300 UNIT/3 ML PEN SUBQ (09:02)
[2023-06-20] MEDS: MECLIZINE HCL 12.5 MG TABLET 25 MG PO (09:04)
[2023-06-20] MEDS: CARVEDILOL 12.5 MG TABLET PO (09:05)
[2023-06-20] MEDS: ACYCLOVIR 200 MG CAPSULE 400 MG PO (09:06)
--- NOTE | 2023-06-20 11:02 | SWNOTE1 ---
SW met with pt to discuss dc needs. Pt lives at home with her . She voiced he stays in the bedroom most of the time, has a hard time getting around and is hard of hearing. Pt voiced she does still drive and she uses a rollator or a cane to help her get around. Pt also voiced her daughter brings meals over for her because he does not like her cooking. Pt is not current with any HH at this time. SW did check her therapy notes and they recommended outpt. Pt did talk about having [facility] health in the past. SW to check with doctor. SW to follow as needed.
--- NOTE | 2023-06-20 12:05 | SWNOTE1 ---
SW reviewed [facility] form with pt, pt voiced understanding, no questions. Pt signed form, original given to pt and copy placed on chart. SW spoke with case management and pt does not want home health or outpt therapy at this time. She will discuss with Dr. Mcfadden at follow up. Pt is being discharged.
[2023-06-20 12:11] VITALS: BMI 30.6
--- NOTE | 2023-06-20 12:28 | CM.NOTE ---
Rounds made with Dr. Mccullough. Plan for discharge today. At this time Hailee does not feel she will need Home Health or outpatient P.T. --if needed she will ask her Family physician for outpatient P.T.
--- NOTE | 2023-06-20 14:52 | PM.DS1 ---
DS: Providers Provider Date of admission: 06/19/23 07:03 Primary care physician: Karie Mcfadden MD Consults: 06/19/23 10:27 Physical Therapy Eval and Treat Routine DS: Diagnosis Discharge Diagnosis (1) Vertigo: (2) Cerebrovascular disease: (3) Type 2 diabetes mellitus with hyperglycemia: (4) Hypertension: (5) Paroxysmal atrial fibrillation: (6) CKD (chronic kidney disease) stage 4, GFR 15-29 ml/min: DS: Summary Hospital Course Hospital Course: Reason for admission: See H&P for details. 83 y/o female to ER with dizziness. Woke up from sleep and after sat up developed sudden onset of dizziness. C/o room spinning and severe nausea but no emesis. Legs felt weak and hard to walk. History of afib and on Xarelto. Prior stroke 5-10 years ago and c/o balance off since but no focal deficits. Dizziness persisted and to ER. CT head showed old stroke but no acute change. Given meclizine and ativan but continued symptoms. ER spoke to stroke alert and neurology advised able to keep here and admitted. Hospital course: [place] better after medication and minimal symptoms if sit still. If attempt to sit up or move develops severe room spinning. Started solu-medrol, meclizine, and benadryl. Resumed home medication. MRI performed and showed old stroke but no acute stroke. Patient continued to improve. Mild vertigo when up and moving but tolerable. Able to move around room without difficulty. Eating well. Discharged home in stable condition. Will take prednisone x 5 days. Resume home medication as directed. F/u with PCP in 2-4 weeks. Time Spent with Patient Time attestation: Total time spent providing and/or coordinating discharge services: Exam Constitutional Vital Signs, click to edit/add: Last Vital Signs Temp 97.6 F 06/20/23 04:27 Pulse 68 06/20/23 07:29 Resp 16 06/20/23 07:29 BP 156/86 H 06/20/23 04:27 Pulse Ox 95 06/20/23 04:27 O2 Del Method Room Air 06/20/23 04:27 Documenting provider has reviewed patient's vital signs: yes Common normals: no apparent distress, oriented x3 and healthy appearing HENMT Common normals: normocephalic Eye Common normals: PERRL and EOMs intact bilaterally Respiratory Common normals: normal respiratory effort and clear to auscultation bilaterally Cardio Common normals: regular rate, regular rhythm, no gallops, no murmurs and no rub GI Common normals: Normal to inspection, nondistended, normoactive bowel sounds present and non-tender Extremity Common normals: no pedal edema DS: Data Data Completed and Pending Labs on day of discharge: Labs from last 24 hours 06/20/23 06/20/23 06/19/23 04:30 04:25 20:55 WBC 15.3 H RBC 4.26 Hgb 13.4 Hct 40.7 MCV 95.5 MCH 31.5 MCHC 32.9 RDW 13.5 Plt Count 193 MPV 11.1 Neut % (Auto) 91.2 H Lymph % (Auto) 7.9 L [place] % (Auto) 0.3 L Eos % (Auto) 0.0 L Baso % (Auto) 0.1 L Neut # (Auto) 14.0 H Lymph # (Auto) 1.2 [place] # (Auto) 0.0 L Eos # (Auto) 0.0 Baso # (Auto) 0.0 Abs Immat Gran (auto) 0.07 H Imm/Tot Granulo (auto) 0.5 Sodium 135 L Potassium 5.5 H Chloride 107 Carbon Dioxide 16.2 L Anion Gap 17.3 BUN 40.0 H Creatinine 2.61 H Est GFR ( Amer) 21 L Est GFR (Non-Af Amer) 18 L BUN/Creatinine Ratio 15.3 Glucose 229 H Estimat Average Glucose 148 Hemoglobin A1c 6.8 H Calcium 9.0 Triglycerides 87 Cholesterol 229 H LDL Cholesterol, Calc 141.0 VLDL Cholesterol 17.4 HDL Cholesterol 71 H Cholesterol/HDL Ratio 3.2 POC Glucose 269 H 06/19/23 18:32 WBC RBC Hgb Hct MCV MCH MCHC RDW Plt Count MPV Neut % (Auto) Lymph % (Auto) [place] % (Auto) Eos % (Auto) Baso % (Auto) Neut # (Auto) Lymph # (Auto) [place] # (Auto) Eos # (Auto) Baso # (Auto) Abs Immat Gran (auto) Imm/Tot Granulo (auto) Sodium Potassium Chloride Carbon Dioxide Anion Gap BUN Creatinine Est GFR ( Amer) Est GFR (Non-Af Amer) BUN/Creatinine Ratio Glucose Estimat Average Glucose Hemoglobin A1c Calcium Triglycerides Cholesterol LDL Cholesterol, Calc VLDL Cholesterol HDL Cholesterol Cholesterol/HDL Ratio POC Glucose 186 H Discharge Plan Discharge Disposition: Home, Self-Care Condition: Good Discharge Medications: New meclizine 12.5 mg Tablet 25 mg PO QID PRN (Reason: Vertigo) Qty: 30 0RF prednisone 50 mg tablet 50 mg PO DAILY 5 Days Qty: 5 0RF Continued acyclovir 400 mg tablet 400 mg PO Q12H atorvastatin 40 mg tablet 40 mg PO .once a day carvedilol 12.5 mg tablet 12.5 mg PO Q12H Xarelto 15 mg tablet 15 mg PO Q24H aspirin 81 mg capsule 81 mg PO DAILY Humulin N NPH Insulin KwikPen 100 unit/mL (3 mL) insulin pen 10 unit subcut BID cholecalciferol (vitamin D3) 25 mcg (1,000 unit) capsule 25 mcg PO BEDTIME B12 1,000 mcg PO .every other day omega 0-apn-yti-fish oil [Fish Oil] 300-1,000 mg capsule 1 cap PO BID sodium bicarbonate 650 mg tablet 650 mg PO BID Activity: resume usual activities as tolerated Diet: advance to your usual diet Patient Instructions: Meclizine (By mouth), Prednisolone (By mouth), Dizziness (GEN) Forms: Portal Instructions Follow Up Appointments: Follow up appt. with Dr. Mcfadden on @ 1:30pm Office #: [phone] Discharge Date/Time: 06/20/23 13:02
--- NOTE | 2023-06-22 12:11 | CM.DCFOLLOWU ---
Person spoke with: Hailee How are you feeling? still having a little dizziness but much better overall How is your pain? good Did you understand your discharge instructions? yes Do you have any questions about your discharge instructions? no Were you given any prescriptions at discharge? yes Were you able to get your prescriptions filled? yes and I have been taking them Do you understand how to take your medications as ordered? yes Do you have any questions about your follow up appointment and do you plan to keep your follow up appointment? No, and yes will keep my appt. Pt also will start writing down BP when taking for f/u appt Is there anything else that you would like to discuss? no Questions/Comments/Concerns/Other:
== END 2023-06-20 13:02 | disposition home or self-care (01) ==
LOC: ER 06:21 → MS 09:44
PROVIDERS: Admitting Provider Family Medicine; Emergency Provider Internal Medicine; PCP Family Medicine; Visit Provider Family Medicine
DX: R42 Dizziness and giddiness (principal); I67.9 Cerebrovascular disease, unspecified; E11.65 Type 2 diabetes mellitus with hyperglycemia; I12.9 Hypertensive chronic kidney disease with stage 1 through stage 4 chronic kidney disease, or unspecified chronic kidney disease; N18.4 Chronic kidney disease, stage 4 (severe); E11.22 Type 2 diabetes mellitus with diabetic chronic kidney disease; I48.0 Paroxysmal atrial fibrillation; Z79.01 Long term (current) use of anticoagulants; Z79.899 Other long term (current) drug therapy; Z86.73 Personal history of transient ischemic attack (TIA), and cerebral infarction without residual deficits; Z79.82 Long term (current) use of aspirin; Z79.4 Long term (current) use of insulin
CPT/HCPCS: 36415; 70450; 70551; 71045; 80048; 80061; 81003; 82948; 83036; 84484; 85025; 93005; 95992; 96374; 96375; 96376; 97161; 97530; 99285; G0378; J2930; Q3014

== ENCOUNTER 2023-09-16 02:20 | Emergency (ER) | payer MEDICARE, OTHER, SELFPAY ==
[2023-09-16 02:28] VITALS: BP 140/92; PULSE 85; RESP 18; TEMP 36.4; O2SAT 100; BMI 31.0
--- NOTE | 2023-09-16 02:35 | ED_ITS ---
HPI - URI/Sore Throat General Chief Complaint: Upper Respiratory Infection Stated Complaint: cough Time Seen by Provider: 09/16/23 02:31 Source: patient History of Present Illness HPI Narrative: patient presents with recurrent cough for one week. Seen by her PCP and prescribed zpak and prednisone. non smoker. Now several members in the family have the same cough. Patient nose started bleeding a few hours ago and this is why she came in. She takes Xarelto for A. fib Related Data Home Medications Medication Instructions Recorded Confirmed acyclovir 400 mg tablet 400 mg PO Q12H 04/19/23 06/19/23 aspirin 81 mg capsule 81 mg PO DAILY 04/19/23 06/19/23 atorvastatin 40 mg tablet 40 mg PO .once a day 04/19/23 06/19/23 carvedilol 12.5 mg tablet 12.5 mg PO Q12H 04/19/23 06/19/23 rivaroxaban 15 mg tablet (Xarelto) 15 mg PO Q24H 04/19/23 06/19/23 B12 1,000 mcg PO .every other day 06/19/23 06/19/23 cholecalciferol (vitamin D3) 25 25 mcg PO BEDTIME 06/19/23 06/19/23 mcg (1,000 unit) capsule insulin NPH isoph U-100 human 100 10 unit subcut BID 06/19/23 06/19/23 unit/mL (3 mL) subcutaneous pen (Humulin N NPH U-100 Insulin KwikPen) omega 2-ymg-eiu-fish oil 300 1 cap PO BID 06/19/23 06/19/23 mg-1,000 mg capsule (Fish Oil) sodium bicarbonate 650 mg tablet 650 mg PO BID 06/19/23 06/19/23 Previous Rx's Medication Instructions Recorded meclizine 12.5 mg tablet 25 mg PO QID PRN Vertigo #30 tabs 06/20/23 prednisone 50 mg tablet 50 mg PO DAILY 5 days #5 tabs 06/20/23 Allergies Allergy/AdvReac Type Severity Reaction Status Date / Time lenalidomide [From Revlimid] Allergy Rash Verified 09/16/23 02:33 pregabalin [From Lyrica] Allergy Rash Verified 09/16/23 02:33 oxybutynin AdvReac Mild Rash Verified 09/16/23 02:33 Review of Systems ROS Status of ROS 10 or more systems reviewed and unremarkable except as noted in history and below [facility] Medical History (Updated 09/16/23 @ 04:55 by Chad Garcia MD) Cataract ?H26.9 - Unspecified cataract (ICD-10) Cerebrovascular disease ?I67.9 - Cerebrovascular disease, unspecified (ICD-10) CKD (chronic kidney disease) stage 4, GFR 15-29 ml/min ?N18.4 - Chronic kidney disease, stage 4 (severe) (ICD-10) Hypertension ?I10 - Essential (primary) hypertension (ICD-10) Hypertension ?I10 - Essential (primary) hypertension (ICD-10) Multiple myeloma ?C90.00 - Multiple myeloma not having achieved remission (ICD-10) Osteoarthritis of left knee ?M17.12 - Unilateral primary osteoarthritis, left knee (ICD-10) Paroxysmal atrial fibrillation ?I48.0 - Paroxysmal atrial fibrillation (ICD-10) Stroke ?I63.9 - Cerebral infarction, unspecified (ICD-10) Type 2 diabetes mellitus with hyperglycemia ?E11.65 - Type 2 diabetes mellitus with hyperglycemia (ICD-10) Surgical History (Updated 04/19/23 @ 11:32 by Letty Overton) History of hysterectomy ?Z90.710 - Acquired absence of both cervix and uterus (ICD-10) Hx of cholecystectomy ?Z90.49 - Acquired absence of other specified parts of digestive tract (ICD- 10) Family History (Updated 04/19/23 @ 11:35 by Letty Overton) Mother Family history of CHF (congestive heart failure) Family history of diabetes mellitus Family history of stroke Sister Family history of CHF (congestive heart failure) Family history of diabetes mellitus Family history of hypertension Grandmother Family history of cancer Family history of diabetes mellitus Brother No problems noted. Father No problems noted. Social History (Updated 04/19/23 @ 11:38 by Letty Overton) Within the past year, how often did you have a drink containing alcohol: never Score interpretation: A score less than 3 is consistent with normal alcohol consumption. 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 Highest level of school completed/degree received: some college, no degree Are you now , , , , never or living with a partner: Little interest or pleasure in doing things: nearly every day Feeling down, depressed, or hopeless: not at all Feel stressed/tense/nervous/anxious/difficulty sleeping: not at all Do you think of yourself as: straight/heterosexual Gender Identity: female Exam Constitutional Vital Signs, click to edit/add: Last Vital Signs Temp 97.6 F 09/16/23 02:28 Pulse 66 09/16/23 04:20 Resp 20 09/16/23 04:20 BP 140/92 H 09/16/23 02:28 Pulse Ox 94 L 09/16/23 04:20 O2 Del Method Room Air 09/16/23 02:28 Common normals: no apparent distress, average body habitus, oriented x3, no limitations, healthy appearing, alert and well nourished HENWV Other: blood left nostril Eye Common normals: PERRL and EOMs intact bilaterally Respiratory Other: faint end expiratory wheeze Cardio Common normals: S1 normal heart sound and S2 normal heart sound Rhythm: abnormal rhythm GI Common normals: Normal to inspection, nondistended, normoactive bowel sounds present and soft to palpation Extremity Common normals: normal to inspection and full ROM Neuro Common normals: oriented x3, CN's II-XII intact bilaterally, moves all extremities, no focal motor deficits and no sensory deficits noted Psych Appearance: grossly normal Course Vital Signs Vital signs: Vital Signs Temperature 97.6 F 09/16/23 02:28 Pulse Rate 85 09/16/23 02:28 Respiratory Rate 18 09/16/23 02:28 Blood Pressure 140/92 H 09/16/23 02:28 Pulse Oximetry 100 09/16/23 02:28 Oxygen Delivery Method Room Air 09/16/23 02:28 Temperature 97.6 F 09/16/23 02:28 Pulse Rate 66 09/16/23 04:20 Respiratory Rate 20 09/16/23 04:20 Blood Pressure 140/92 H 09/16/23 02:28 Pulse Oximetry 94 L 09/16/23 04:20 Oxygen Delivery Method Room Air 09/16/23 02:28 MDM - URI/Sore Throat MDM Narrative Medical decision making narrative: patient presents with bronchospasm and left nose bleed. Able to control nose bleed by placing nasal clamp in place. Labs unremarkble with evidence of CKD. patient treated with solumedrol and albuterol NMT. Discharged home to follow up with her doctor Lab Data Labs: Lab Results 09/16/23 Range/Units 02:45 WBC 10.8 (4.0-11.0) 10^3/uL RBC 3.98 L (4.20-5.40) 10^6/uL Hgb 12.7 (12.0-16.0) g/dL Hct 39.2 (36.0-48.0) % MCV 98.5 (81.0-99.0) fL MCH 31.9 (26.7-34.0) pg MCHC 32.4 (29.9-35.2) g/dL RDW 13.1 (11.0-15.0) % Plt Count 226 (150-450) 10^3/uL MPV 11.1 (9.5-13.5) fL Neut % (Auto) 76.7 H (43.0-75.0) % Lymph % (Auto) 17.5 L (20.5-60.0) % [place] % (Auto) 5.3 (1.7-12.0) % Eos % (Auto) 0.0 L (0.9-7.0) % Baso % (Auto) 0.1 L (0.2-2.0) % Neut # (Auto) 8.3 H (1.4-6.5) 10^3/uL Lymph # (Auto) 1.9 (1.2-3.8) 10^3/uL [place] # (Auto) 0.6 (0.3-0.8) 10^3/uL Eos # (Auto) 0.0 (0.0-0.7) 10^3/uL Baso # (Auto) 0.0 (0.0-0.1) 10^3/uL Abs Immat Gran (auto) 0.04 H (0.00-0.03) 10^3/uL Imm/Tot Granulo (auto) 0.4 (0.0-0.5) % Sodium 136 (136-145) mmol/L Potassium 4.4 (3.5-5.1) mmol/L Chloride 103 (98-107) mmol/L Carbon Dioxide 24.1 (21.0-32.0) mmol/L Anion Gap 13.3 BUN 41.0 H (7.0-18.0) mg/dL Creatinine 2.42 H (0.55-1.02) mg/dL Est GFR ( Amer) 23 L (>=60) Est GFR (Non-Af Amer) 19 L (>=60) BUN/Creatinine Ratio 16.9 Glucose 238 H (74-106) mg/dL Calcium 8.8 (8.5-10.1) mg/dL Discharge Plan Discharge Chief Complaint: Upper Respiratory Infection Clinical Impression: Upper respiratory infection, Anterior epistaxis, Acute bronchospasm Prescriptions / Home Meds: No Action acyclovir 400 mg tablet 400 mg PO Q12H atorvastatin 40 mg tablet 40 mg PO .once a day carvedilol 12.5 mg tablet 12.5 mg PO Q12H Xarelto 15 mg tablet 15 mg PO Q24H aspirin 81 mg capsule 81 mg PO DAILY Humulin N NPH Insulin KwikPen 100 unit/mL (3 mL) insulin pen 10 unit subcut BID cholecalciferol (vitamin D3) 25 mcg (1,000 unit) capsule 25 mcg PO BEDTIME B12 1,000 mcg PO .every other day omega 4-uod-tcw-fish oil [Fish Oil] 300-1,000 mg capsule 1 cap PO BID sodium bicarbonate 650 mg tablet 650 mg PO BID meclizine 12.5 mg Tablet 25 mg PO QID PRN (Reason: Vertigo) Qty: 30 0RF prednisone 50 mg tablet 50 mg PO DAILY 5 Days Qty: 5 0RF Instructions: Nosebleed (ED), Acute Bronchitis (ED) Referrals: Karie Mcfadden MD [Primary Care Provider] - 1 week
--- NOTE | 2023-09-16 02:38 | XR_ITS ---
[facility] [place] [id number] Patient Name: MARTHA GOMEZ MRN: [id number] date: 1940 Sex: F Assigned Patient Location: ER Current Patient Location: ER Accession/Order Number: [id number] Exam Date: 09/16/2023 02:50 Report Date: 09/16/2023 03:14 At the request of: RACH DAVALOS Procedure: XR chest 2V EXAM: XR chest 2V HISTORY: cough COMPARISON: Chest radiograph dated 06/19/2023. TECHNIQUE: 2 views of the chest were obtained. FINDINGS: A right chest port a catheter is in place. The cardiac silhouette is normal in size. Calcified granulomas are seen in the lungs. There is no significant pneumothorax or pleural effusion. No acute osseous abnormality is seen. Cholecystectomy clips are noted on the lateral view. XR/XR chest 2V IMPRESSION: 1. No acute cardiopulmonary abnormality. Electronically authenticated by: Malka DALLAS Date: 09/16/2023 03:14
--- NOTE | 2023-09-16 02:50 | PC.NURSE ---
pt presents to ED because patient states that she has had a cough for the past week. pt saw dr. dixon and was placed on azithromycin and prednisone a week ago with no improvement. all family at home has same cough. on arrival to ED pt has a cough and an expiratory wheeze. pt states around 1am she was sleeping and felt something running down her face and had a nose bleed. pt is on xarelto for a-fib. pt nose is actively bleeding on arrival and a nasal clamp is applied.
[2023-09-16 02:55] LABS: Basophils Percent Auto 0.1 % (0.2-2.0); Hematocrit 39.2 % (36.0-48.0); Hemoglobin 12.7 g/dL (12.0-16.0); Immature Granulocytes Abs Auto 0.04 10^3/uL (0.00-0.03); Immature Granulocytes Pct Auto 0.4 % (0.0-0.5); Lymphocytes Absolute Auto 1.9 10^3/uL (1.2-3.8); Lymphocytes Percent Auto 17.5 % (20.5-60.0); Mean Corpuscular HGB Conc 32.4 g/dL (29.9-35.2); Mean Corpuscular Hemoglobin 31.9 pg (26.7-34.0); Mean Corpuscular Volume 98.5 fL (81.0-99.0); Mean Platelet Volume 11.1 fL (9.5-13.5); Monocytes Absolute Auto 0.6 10^3/uL (0.3-0.8); Monocytes Percent Auto 5.3 % (1.7-12.0); Neutrophils Absolute Auto 8.3 10^3/uL (1.4-6.5); Neutrophils Percent Auto 76.7 % (43.0-75.0); Platelet Count 226 10^3/uL (150-450); Red Blood Count 3.98 10^6/uL (4.20-5.40); Red Cell Distribution Width 13.1 % (11.0-15.0); White Blood Count 10.8 10^3/uL (4.0-11.0)
[2023-09-16] MEDS: METHYLPREDNISOLONE SOD SUCC PF 125 MG/2 ML VIAL IVP (03:01)
[2023-09-16 03:03] LABS: Anion Gap 13.3; BUN Creatinine Ratio 16.9; Calcium 8.8 mg/dL (8.5-10.1); Carbon Dioxide 24.1 mmol/L (21.0-32.0); Chloride 103 mmol/L (98-107); Estimated GFR (African America 23 (>=60); Estimated GFR (Non-African Ame 19 (>=60); Glucose 238 mg/dL (74-106); Potassium 4.4 mmol/L (3.5-5.1); Sodium 136 mmol/L (136-145)
[2023-09-16 03:11] VITALS: PULSE 78; RESP 20; O2SAT 99
[2023-09-16] MEDS: ALBUTEROL SULFATE 2.5 MG/3 ML VIAL NEB IH ×2 (03:11→04:20)
[2023-09-16 03:20] VITALS: PULSE 101
[2023-09-16 04:20] VITALS: PULSE 66; PULSE 67; RESP 20; O2SAT 94
[2023-09-16] MEDS: ALBUTEROL SULFATE 200 PUFF/6.7 GM INHALER IH (04:55)
== END 2023-09-16 05:39 | disposition home or self-care (01) ==
PROVIDERS: Emergency Provider Internal Medicine; PCP Family Medicine
DX: J06.9 Acute upper respiratory infection, unspecified (principal); J98.01 Acute bronchospasm; R04.0 Epistaxis; M54.50 Low back pain, unspecified; R10.9 Unspecified abdominal pain; M47.816 Spondylosis without myelopathy or radiculopathy, lumbar region; M51.9 Unspecified thoracic, thoracolumbar and lumbosacral intervertebral disc disorder; Z79.01 Long term (current) use of anticoagulants; Z79.899 Other long term (current) drug therapy; Z79.82 Long term (current) use of aspirin; Z79.4 Long term (current) use of insulin; I67.9 Cerebrovascular disease, unspecified; I12.9 Hypertensive chronic kidney disease with stage 1 through stage 4 chronic kidney disease, or unspecified chronic kidney disease; N18.4 Chronic kidney disease, stage 4 (severe); C90.00 Multiple myeloma not having achieved remission; M17.12 Unilateral primary osteoarthritis, left knee; I48.0 Paroxysmal atrial fibrillation; E11.9 Type 2 diabetes mellitus without complications; Z86.73 Personal history of transient ischemic attack (TIA), and cerebral infarction without residual deficits; Z90.710 Acquired absence of both cervix and uterus; Z90.49 Acquired absence of other specified parts of digestive tract
CPT/HCPCS: 30901; 36415; 71046; 72100; 74018; 80048; 85025; 94640; 96374; 99284; J2930

== ENCOUNTER 2023-09-16 12:43 | Outpatient (OUT) | payer MEDICARE, OTHER, SELFPAY ==
--- NOTE | 2023-09-16 12:48 | XR_ITS ---
[place] [id number] Patient Name: MARTHA GOMEZ MRN: [id number] date: 1940 Sex: F Assigned Patient Location: [facility] Current Patient Location: ED.MAIN Accession/Order Number: [id number] Exam Date: 09/16/2023 12:58 Report Date: 09/16/2023 13:58 At the request of: CURT CLARK Procedure: XR lumbar spine 2-3V EXAM: XR lumbar spine 2-3V HISTORY: low back pain COMPARISON: None. TECHNIQUE: 3 views Findings/impression: Satisfactory alignment. Maintained vertebral body heights. Multilevel endplate degenerative changes, disc disease and facet arthropathy, most prominent at L2-L3. No acute fracture. Unremarkable soft tissues. Electronically authenticated by: SONIA MOYER Date: 09/16/2023 13:58
--- NOTE | 2023-09-16 12:48 | XR_ITS ---
[facility] [place] [id number] Patient Name: MARTHA GOMEZ MRN: [id number] date: 1940 Sex: F Assigned Patient Location: [facility] Current Patient Location: RAD Accession/Order Number: [id number] Exam Date: 09/16/2023 12:58 Report Date: 09/16/2023 14:55 At the request of: CURT CLARK Procedure: XR abdomen 1V EXAMINATION: XR abdomen 1V HISTORY: abdominal pain COMPARISON: No relevant comparison available. FINDINGS: BOWEL GAS PATTERN: No abnormal dilation or deviation. Moderate stool in the rectum which measures 5.6 cm transversely CALCIFICATIONS: Multiple left upper quadrant calcifications likely splenic OTHER: Degenerative changes of the spine with rotatory dextrocurvature. Right lateral 8 mm subluxation of L3 in relation to L2. XR/XR abdomen 1V IMPRESSION: Moderate amount of stool in the rectum, overall nonobstructive bowel gas pattern Electronically authenticated by: KENJI STEIN Date: 09/16/2023 14:55
== END 2023-09-16 12:44 | disposition home or self-care (01) ==
LOC: RAD 12:43
PROVIDERS: PCP Family Medicine; Visit Provider Family Medicine
DX: M54.50 Low back pain, unspecified (principal); R10.9 Unspecified abdominal pain; M47.816 Spondylosis without myelopathy or radiculopathy, lumbar region; M51.9 Unspecified thoracic, thoracolumbar and lumbosacral intervertebral disc disorder
CPT/HCPCS: 72100; 74018

== ENCOUNTER 2023-09-17 16:05 | Emergency (ER) | payer MEDICARE, OTHER, SELFPAY ==
[2023-09-17 16:11] VITALS: PULSE 83; RESP 20; TEMP 36.8; O2SAT 96; BMI 31.0
--- NOTE | 2023-09-17 16:28 | ED.GENADUL1 ---
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 She had nosebleed two days ago. Presented here with a left anterior nosebleed had a Rhino Rocket placed. Patient presents today for removal. Patient is in no acute distress. Denies acute bleeding Related Data Home Medications Medication Instructions Recorded Confirmed acyclovir 400 mg tablet 400 mg PO Q12H 04/19/23 09/17/23 aspirin 81 mg capsule 81 mg PO DAILY 04/19/23 09/17/23 atorvastatin 40 mg tablet 40 mg PO .once a day 04/19/23 09/17/23 carvedilol 12.5 mg tablet 12.5 mg PO Q12H 04/19/23 09/17/23 rivaroxaban 15 mg tablet (Xarelto) 15 mg PO Q24H 04/19/23 09/17/23 B12 1,000 mcg PO .every other day 06/19/23 09/17/23 cholecalciferol (vitamin D3) 25 25 mcg PO BEDTIME 06/19/23 09/17/23 mcg (1,000 unit) capsule insulin NPH isoph U-100 human 100 10 unit subcut BID 06/19/23 09/17/23 unit/mL (3 mL) subcutaneous pen (Humulin N NPH U-100 Insulin KwikPen) omega 0-sly-jpa-fish oil 300 1 cap PO BID 06/19/23 09/17/23 mg-1,000 mg capsule (Fish Oil) sodium bicarbonate 650 mg tablet 650 mg PO BID 06/19/23 09/17/23 Previous Rx's Medication Instructions Recorded meclizine 12.5 mg tablet 25 mg PO QID PRN Vertigo #30 tabs 06/20/23 Allergies Allergy/AdvReac Type Severity Reaction Status Date / Time lenalidomide [From Revlimid] Allergy Rash Verified 09/16/23 02:33 pregabalin [From Lyrica] Allergy Rash Verified 09/16/23 02:33 oxybutynin AdvReac Mild Rash Verified 09/16/23 02:33 Review of Systems ROS Narrative All Systems are negative except as noted/marked.All systems reviewed and otherwise negative PFSH PFSH Medical History (Updated 09/17/23 @ 16:33 by Rebeca Benson) Cataract ?H26.9 - Unspecified cataract (ICD-10) Cerebrovascular disease ?I67.9 - Cerebrovascular disease, unspecified (ICD-10) CKD (chronic kidney disease) stage 4, GFR 15-29 ml/min ?N18.4 - Chronic kidney disease, stage 4 (severe) (ICD-10) Hypertension ?I10 - Essential (primary) hypertension (ICD-10) Hypertension ?I10 - Essential (primary) hypertension (ICD-10) Multiple myeloma ?C90.00 - Multiple myeloma not having achieved remission (ICD-10) Osteoarthritis of left knee ?M17.12 - Unilateral primary osteoarthritis, left knee (ICD-10) Paroxysmal atrial fibrillation ?I48.0 - Paroxysmal atrial fibrillation (ICD-10) Stroke ?I63.9 - Cerebral infarction, unspecified (ICD-10) Type 2 diabetes mellitus with hyperglycemia ?E11.65 - Type 2 diabetes mellitus with hyperglycemia (ICD-10) Surgical History (Updated 04/19/23 @ 11:32 by Letty Overton) History of hysterectomy ?Z90.710 - Acquired absence of both cervix and uterus (ICD-10) Hx of cholecystectomy ?Z90.49 - Acquired absence of other specified parts of digestive tract (ICD-10) Family History (Updated 04/19/23 @ 11:35 by Letty Overton) Mother Family history of CHF (congestive heart failure) Family history of diabetes mellitus Family history of stroke Sister Family history of CHF (congestive heart failure) Family history of diabetes mellitus Family history of hypertension Grandmother Family history of cancer Family history of diabetes mellitus Brother No problems noted. Father No problems noted. Social History (Updated 04/19/23 @ 11:38 by Letty Overton) Within the past year, how often did you have a drink containing alcohol: never Score interpretation: A score less than 3 is consistent with normal alcohol consumption. 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 General: The patient appears well and in no apparent distress. Patient is resting comfortably on cart. Skin: Warm, dry, no pallor noted. There is no rash noted. Head: Normocephalic, atraumatic Eye: Normal conjunctiva, no drainage, EOMI. PERRL Ears, Nose, Mouth, and Throat: rocket in place left nares oral mucosa is moist. right Nares patent. Mouth without vesicles. Ear canals patent. Tm's without Erythema Cardiovascular: Regular Rate and Rhythm Respiratory: Patient is in no distress, no accessory muscle use, lungs are clear to auscultation, no wheezing, rales or rhonchi Musculoskeletal: The patient has no evidence of calf tenderness, no pitting edema, symmetrical pulses noted bilaterally Neurological: A&O x4, normal speech Psychiatric: Cooperative Constitutional Vital Signs, click to edit/add: Last Vital Signs Temp 98.2 F 09/17/23 16:11 Pulse 83 09/17/23 16:11 Resp 20 09/17/23 16:11 BP 225/92 H 09/17/23 16:38 Pulse Ox 96 09/17/23 16:11 Course Vital Signs Vital signs: Vital Signs Temperature 98.2 F 09/17/23 16:11 Pulse Rate 83 09/17/23 16:11 Respiratory Rate 20 09/17/23 16:11 Pulse Oximetry 96 09/17/23 16:11 Temperature 98.2 F 09/17/23 16:11 Pulse Rate 83 09/17/23 16:11 Respiratory Rate 20 09/17/23 16:11 Blood Pressure 225/92 H 09/17/23 16:38 Pulse Oximetry 96 09/17/23 16:11 Medical Decision Making [facility] Narrative Medical decision making narrative: patient present for Rhino Rocket removal status post epistaxis two days ago. No acute distress at this time. She was very nervous having the Rhino Rocket removed. Blood pressure was initially elevated. Rhino Rocket removed without difficulty no active bleeding. We will recheck blood pressure. She denies any headache blurred vision. pressure was elevated here but she had a nervous prior to removal of the Rhino Rocket. She was medicated with her blood pressure medication here as she has not taken any today. Patient instructed to not take her blood pressure medication which she calls home. She does have a blood pressure cuff to check her blood pressure at home. Daughter is going home with her. Patient verbalized understanding agrees with plan of care. She denies any head or neck pain. She has no focal neurological deficits. Blood pressure is decreasing on its own prior to discharge. Medical Records Medical records reviewed: Yes I reviewed the patient's medical records Discharge Plan Discharge Chief Complaint: Epistaxis Clinical Impression: H/O epistaxis, Encounter for removal of nasal pack Patient Disposition: Home, Self-Care Time of Disposition Decision: 16:32 Condition: Good Prescriptions / Home Meds: No Action acyclovir 400 mg tablet 400 mg PO Q12H atorvastatin 40 mg tablet 40 mg PO .once a day carvedilol 12.5 mg tablet 12.5 mg PO Q12H Xarelto 15 mg tablet 15 mg PO Q24H aspirin 81 mg capsule 81 mg PO DAILY Humulin N NPH Insulin KwikPen 100 unit/mL (3 mL) insulin pen 10 unit subcut BID cholecalciferol (vitamin D3) 25 mcg (1,000 unit) capsule 25 mcg PO BEDTIME B12 1,000 mcg PO .every other day omega 5-zoh-iet-fish oil [Fish Oil] 300-1,000 mg capsule 1 cap PO BID sodium bicarbonate 650 mg tablet 650 mg PO BID meclizine 12.5 mg Tablet 25 mg PO QID PRN (Reason: Vertigo) Qty: 30 0RF Instructions: Nosebleed (ED) Stand Alone Forms: Portal Instructions Referrals: Karie Mcfadden MD [Primary Care Provider] - 1 week
[2023-09-17 16:38] VITALS: BP 225/92
[2023-09-17] MEDS: CARVEDILOL 25 MG TABLET PO (17:07)
== END 2023-09-17 17:18 | disposition home or self-care (01) ==
PROVIDERS: Emergency Provider Emergency Medicine; PCP Family Medicine
DX: Z48.00 Encounter for change or removal of nonsurgical wound dressing (principal)
CPT/HCPCS: 99283

== ENCOUNTER 2023-12-27 08:16 | Outpatient (OUT) | payer MEDICARE, OTHER, SELFPAY ==
--- OUTSIDE RECORDS SUMMARY | 2023-12-27 08:22 | XMS_ITS | CCD ---
Author Name Unknown Address [address] [place] [address] Organization [facility] Care Team Providers Care Projection Camera Operator Name Role Phone Curt Clark Unavailable Unavailable Unavailable CURT CLARK Primary Care Physician [phone] Lopez, Akin Unavailable Quita Ayon Unavailable MD Curt Clark Primary Care Provider DO Claire Choi II Attending Provider Curt Clark Unavailable MD Curt Clark Primary Care Provider [phone] DO Claire Choi II Attending Provider Tyree PARK Attending Unavailable XAVIER, Tyree Rivers Attending Unavailable Tyree PARK Attending Unavailable Tyree PARK Attending Unavailable AMBER, DR CURT Patel Primary Care Unavailable AMBER, DR CURT Patel Consulting Unavailable CLARK, DR CURT Patel Attending Unavailable CLARK, DR CURT Patel Admitting Unavailable LOPEZ, AKIN Attending Unavailable LOPEZ, AKIN Admitting Unavailable AMBER, DR CURT Patel Primary Care Unavailable LAUREN RUSS Consulting Unavailable LOPEZ, AKIN Consulting Unavailable AMBER, DR CURT Patel Primary Care Unavailable TYREE APRK Attending Unavailable XAVIER, TYREE Admitting Unavailable TYREE PARK Consulting Unavailable CLAIRE CHOI Attending Unavailable CLAIRE CHOI Admitting Unavailable AMBER, DR CURT Patel Primary Care Unavailable CLAIRE CHOI Consulting Unavailable LOPEZ, AKIN Attending Unavailable LOPEZ, AKIN Admitting Unavailable LOPEZ, AKIN Consulting Unavailable AMBER, DR CURT Patel Primary Care Unavailable AMBER, DR CURT Patel Referring Unavailable CLARK, DR CURT Patel Consulting Unavailable CLARK, DR CURT Patel Attending Unavailable CLARK, DR CURT Patel Admitting Unavailable CLARK, DR CURT Patel Primary Care Unavailable CLARK, DR CURT Patel Primary Care Unavailable CLARK, DR CURT Patel Attending Unavailable CLARK, DR CURT Patel Admitting Unavailable CLARK, DR CURT Patel Consulting Unavailable CLARK, DR CURT Patel Attending Unavailable CLARK, DR CURT Patel Admitting Unavailable CLARK, DR CURT Patel Primary Care Unavailable CLARK, DR CURT Patel Primary Care Unavailable ADAMOWICZ, CLAIRE Hanley Consulting Unavailable MARCOSOWICZ, CLAIRE Hanley Admitting Unavailable ADAMOWICZ, CLAIRE Hanley Attending Unavailable CLARK, DR CURT Patel Primary Care Unavailable CLARK, DR CURT Patel Consulting Unavailable CLARK, DR CURT Patel Attending Unavailable CLARK, DR CURT Patel Admitting Unavailable FEIDERWILD Consulting Unavailable CLARK, DR CURT Patel Primary Care Unavailable CLARK, DR CURT Patel Attending Unavailable CLARK, DR CURT Patel Admitting Unavailable ZIEBER, DIANN Rivers Consulting Unavailable CLARK, DR CURT Patel Consulting Unavailable KARLENE, ZO Attending Unavailable KARLENE, ZO Admitting Unavailable CLARK, DR CURT Patel Primary Care Unavailable ZIEBER, DIANN Rivers Consulting Unavailable KARLENE, ZO Consulting Unavailable TRABOULSSI, DR RUBI Attending Unavailab le TRABOULSSI, DR RUBI Admitting Unavailab le CLARK, DR CURT Patel Primary Care Unavailable TRABOULSSI, DR RUBI Consulting Unavailab le CLARK, DR CURT Patel Primary Care Unavailable PARK, TYREE Attending Unavailable PARK, TYREE Admitting Unavailable PARK, TYREE Consulting Unavailable ZIEBER, DIANN R Consulting Unavailable ADAMOWICZ, CLAIRE J Attending Unavailable ADAMOWICZ, CLAIRE J Admitting Unavailable ADAMOWICZ, CLAIRE Hanley Consulting Unavailable Clark, Dr. Curt Alva Primary Care Unav ailable Traboulssi, Dr. Rubi Referring Unavaila ble Traboulssi, Dr. Rubi Attending Unavaila ble Traboulssi, Dr. Rubi Referring Unavaila ble Traboulssi, Dr. Rubi Attending Unavaila ble Clark, Dr. Curt Alva Primary Care Unav rodolfoable MD Curt Clark Primary Care Provider DO Claire Choi II Attending Provider MD Nehemias Fernandez II Attending Provider Nehemias Fernandez II Unavailable [phone] Amber VELAZQUEZ, Curt Alva Primary Care Provider Unavailable ELICIA RHODES Attending Unavailable CURT CLARK Primary Care Unavailjoni Clark MD, Curt Alva Primary Care Provider ELICIA RHODES Referring Unavailable CURT CLARK Primary Care UnavailCurt Osullivan Primary Care Unavailable Claire Choi II Attending Claire Angel II Admitting Unavaila collin Allergies Allergy Classification Reported Allergen(s) Allergy Type Date of Onset Reaction(s) Facility (20 sources) oxybutynin; Translations: [oxybutynin] Drug Allergy 07-13-20 22 Hives, Rash [facility] 250 DO Work Phone: (20 sources) lenalidomide; Translations: [lenalidomide] Drug Allergy 08-24-20 16 Unknown, Rash, itching [facility] (20 sources) pregabalin; Translations: [pregabalin] Drug Allergy 07-13-20 22 Unknown, double vision [facility] (11 sources) pregabalin; Translations: [Lyrica] Drug Allergy DOUBLE VISION [facility] Repository (10 sources) REVILID Propensity to adverse reactions ITCHY [facility] Other (1 source) lenalidomide Drug Allergy 08-24-20 16 [facility] Repository (1 source) oxybutynin Drug Allergy 12-27-19 20 [facility] Repository (1 source) Allergies Reconciled Propensity to adverse reactions Unknown [facility] Other (1 source) patient allergy list reviewed by nurse or physicia Propensity to adverse reactions 11-24-19 16 Comment:Done [facility] Other (1 source) lenalidomide Drug Allergy 07-19-20 [facility] Repository (1 source) oxybutynin Drug Allergy 07-19-20 [facility] Repository (1 source) pregabalin Drug Allergy 07-19-20 [facility] Repository Medications Current Medications Medication Drug Class(es) Dates Sig (Normalized) Sig (Original) aspirin 81 mg chewable tablet (20 sources) Platelet Aggregation Inhibitor, Nonsteroidal Anti-inflammatory Drug Start: 10-18-2018 take 81 mg by mouth once daily Aspirin Active 81 MG PO Daily October 18, 2018 1:00am Start: 07-14-2017 End: 08-23-2018 take 81 mg by mouth once daily Aspirin Discontinued 81 MG PO Daily 7 August 11, 2018 12:00am August 23, 2018 8:42am Start: 10-05-2016 take 81 mg by mouth once daily aspirin 81 mg, Oral, Daily Start Date: 10/05/16 Status: Ordered atorvastatin 40 mg oral tablet (20 sources) HMG-CoA Reductase Inhibitor Start: 01-29-2020 Lipitor Oral, Daily, Refills(s) 0 Start Date: 01/29/20 Status: Ordered Start: 08-23-2018 take 1 tablet by yaima once daily atorvastatin (Lipitor) 40 mg tablet Take 1 tablet (40 mg) by mouth once daily. 0 08/23/2021 Active Start: 07-14-2017 End: 08-23-2018 take 1 tablet by mouth at bedtime Atorvastatin Discontinued 1 TAB PO Bedtime July 14, 2017 12:00am August 23, 2018 8:42am azithromycin 250 mg oral tablet (5 sources) Macrolide Antimicrobial Start: 09-13-2023 Azithromycin 250 MG as directed Orally 2 tabs po today, then 1 tab daily x 4 more days for 5 Aug, Active Start: 02-11-2022 Azithromycin 2 50 MG Oral Tablet TAKE 2 TABLETS BY MOUTH ON DAY 1 THEN TAKE 1 TABLET BY MOUTH DAILY DAYS 2 THRU 5 UNTIL GONE Quantity: 6 Refills: 0 Ordered: 11-Feb-2022 DO Start : 11-Feb-2022 Complete benzonatate 200 mg oral capsule (4 sources) Non-narcotic Antitussive Start: 09-26-2023 take 1 capsule by mouth every eight hours Benzonatate 200 MG 1 capsule Orally Three times a day for 10 day(s) Sep, Active Start: 02-11-2022 take 1 capsule by mo uth three times daily as needed Benzonatate 100 MG Oral Capsule TAKE ONE CAPSULE BY MOUTH THREE TIMES A DAY NEEDED Quantity: 20 Refills: 0 Ordered: 11-Feb-2022 DO Start : 11-Feb-2022 Complete carvedilol 12.5 mg oral tablet (20 sources) alpha-Adrenergic Valentina, beta-Adrenergic Valentina Start: 11-07-2019 take 1 tablet by mouth twice daily carvedilol (Coreg) 12.5 mg tablet Take 1 tablet (12.5 mg) by mouth 2 times a day. 0 10/12/2021 Active Start: 07-14-2017 End: 11-07-2019 take 6.25 mg by mouth twice daily Carvedilol Discontinued 6.25 MG PO Twice daily July 14, 2017 12:00am November 07, 2019 3:50pm Start: 10-05-2016 take 2 tablets by mo uth twice daily carvedilol 3.125 mg Tab 6.25 mg = 2 tab(s), Oral, BID Start Date: 10/05/16 Status: Ordered Start: 10-05-2016 take 2 tablets by mo uth twice daily carvedilol 3.125 mg Tab 6.25 mg = 2 tab(s), Oral, BID Start Date: 10/05/16 Status: Ordered cefdinir 300 mg oral capsule (3 sources) Cephalosporin Antibacterial Start: 09-26-2023 Cefdinir 300 MG as directed Orally bid for 7 days Sep, Active cholecalciferol 0.125 mg oral tablet (17 sources) Vitamin D Start: 08-10-2018 Cholecalcifero l (Vitamin D3) (Vitamin D3) 5,000 unit Tablet Active 1000 UNIT PO Daily August 10, 2018 12:00am Start: 10-05-2016 take 1 tablet by yaima th once daily Vitamin D3 5000 intl units oral tablet 5,000 International_Unit = 1 tab(s), Oral, Daily, Prophylaxis Start Date: 10/05/16 Status: Ordered take 1 tablet by yaima once daily cholecalciferol (Vitamin D-3) 25 MCG (1000 UT) tablet Take 1 tablet (25 mcg) by mouth once daily. 0 Active daratumumab (2 sources) [id number] Cytolytic Antibody Start: 12-17-2019 daratumumab mg, IV, q6wk, Refills(s) 0 Start Date: 12/17/19 Status: Ordered docosahexaenoic acid 120 mg / eicosapentaenoic acid 180 mg oral capsule (11 sources) take 1 capsule by mouth twice daily fish oil concentrate ([place]-3) 120-180 mg capsule Take 1 capsule (1 g) by mouth 2 times a day. 0 Active take 1 capsule by mouth twice da lilia Fish Oil 1000 MG Oral Capsule Take 1 capsule twice daily Quantity: 0 Refills: 0 Ordered: 25-Aug-2021 DO Active Fish Oils (20 sources) Start: 07-14-2017 take 1 capsule by mo ut twice daily Fish Oil Active 1200 CAP PO Twice daily July 13, 2017 11:00pm Start: 07-14-2017 take 1 capsule by mo uth twice daily Fish Oil Active 1200 CAP PO Twice daily July 14, 2017 12:00am Start: 10-05-2016 take 1 capsule by mo uth twice daily Fish Oil 1000 mg oral capsule 1,000 mg = 1 cap(s), Oral, BID, Prophylaxis Start Date: 10/05/16 Status: Ordered take 1 capsule by mo ut twice daily take 1 capsule by mo uth twice daily Fish Oil 1000 MG 1 capsule Orally Twice a day Active 3 ml insulin isophane, human 100 unt/ml pen injector (20 sources) Start: 08-10-2018 Insulin Nph Is oph U-100 Human (Humulin N Nph Insulin Kwikpen) 100 unit/mL (3 mL) Insulin Pen Active 12 UNIT SUBCUT Every evening August 10, 2018 12:00am HumuLIN N 100 UN IT/ML 10 units (using [employer] brand) Subcutaneous 15 units twice a day Active insulin NPH, Iso phane, (HumuLIN N,NovoLIN N) 100 unit/mL injection Inject 15 Units under the skin once daily in the morning. Take as directed per insulin instructions. 0 Active HumuLIN N 100 UN IT/ML 10 units (using [employer] brand) Subcutaneous 10 UNITS TWICE A DAY Active inject 10 [IU] by esqueda bcutaneous injection once daily at bedtime HumuLIN N 100 UNIT/ML 10 units (using [employer] brand) Subcutaneous qhs Active 3 ml insulin lispro 100 unt/ml pen injector (7 sources) Insulin Analog Start: 07-14-2017 Insulin Lispro (Humalog Kwikpen Insulin) 100 unit/mL Insulin Pen Active 0 unit SUBCUT Before meals and at bedtime July 14, 2017 12:00am SLIDING SCALE HumaLOG KwikPen 100 UNIT/ML scale #1 Subcutaneous before meals tid Not-Taking Insulin Lispro (Humalog Kwik pen Insulin) 100 unit/mL Insulin Pen (3 sources) Start: 07-14-2017 Insulin Lispro (Humalog Kwikpen Insulin) 100 unit/mL Insulin Pen Active 0 unit SUBCUT Before meals and at bedtime July 14, 2017 12:00am SLIDING SCALE Start: 07-14-2017 Insulin Lispro (Humalog Kwikpen Insulin) 100 unit/mL Insulin Pen Active 0 unit SUBCUT Before meals and at bedtime July 13, 2017 11:00pm SLIDING SCALE meclizine hydrochloride 12.5 mg oral tablet (12 sources) Antiemetic take 1 tablet by mouth every twelve hours Meclizine HCl 12.5 MG 1 tablet as needed Orally every 12 hrs for 10 days Active Relion insulin (2 sources) Start: 1 inject 10 [IU] by subcutaneous injection at bedtime Relion insulin Relion insulin, 10 unit(s), SubCutaneous, Bedtime Start Date: 03/03/21 Status: Ordered 0.25 mg, 0.5 mg dose 1.5 ml semaglutide 1.34 mg/ml pen injector (5 sources) Start: 1 Ozempic (0.25 or 0.5 MG/DOSE) 2 MG/1.5ML 0.5mg Subcutaneous once weekly for 84 days March, Active sodium bicarbonate 650 mg oral tablet (20 sources) Start: 7 take 650 mg by mouth twice daily Sodium Bicarbonate Active 650 MG PO Twice daily July 14, 2017 12:00am take 1 tablet by mouth twice reza ly Sodium Bicarbonate 325 MG Oral Tablet Take 1 tablet twice daily Quantity: 0 Refills: 0 Ordered: 25-Aug-2021 DO Active sulfamethoxazole 800 mg / trimethoprim 160 mg oral tablet (4 sources) Dihydrofolate Reductase Inhibitor Antibacterial, Sulfonamide Antimicrobial take 1 tablet by mouth every twelve hours Bactrim DS 800-160 MG 1 tablet Orally Twice a day for 5 days Active traMADol hydrochloride 50 mg oral tablet (3 sources) Opioid Agonist Start: 04-26-20 23 take 1 tablet by mouth three times daily as needed True Metrix Blood Glucose Test - (20 sources) True Metrix Blood Glucose Test - use with True Metrix Meter E11.9 4 x daily for 90 days Active True Metrix Bloo d Glucose Test - use with True Metrix Meter E11.9 4 x daily Active Vitamin B 12 100 MCG (18 sources) Vitamin B 12 100 MCG as directed Orally once a day Active vitamin B12 (15 sources) Vitamin B12 Start: 12-24-2019 Vitamin B-12 1 ,000 microgram Start Date: 12/24/19 Status: Ordered Start: 05-02-2019 take 1000 ug by mout h once daily Cyanocobalamin (Vitamin B-12) Active 1000 MCG PO Daily May 02, 2019 12:00am take 1 tablet by yaima th every other day Vitamin B12 1000 MCG Oral Tablet Extended Release TAKE 1 TABLET EVERY OTHER DAY Quantity: 0 Refills: 0 Ordered: 25-Aug-2021 DO Active Vitamin D3 5000 UNIT (20 sources) take 1 capsule by mouth once reza ly take 1 capsule by mouth once reza ly Vitamin D3 5000 UNIT 1 capsule Orally Daily Active Completed/Discontinued Medications Medication Drug Class(es) Dates Sig (Normalized) Sig (Original) acetaminophen 325 mg / HYDROcodone bitartrate 5 mg oral tablet (5 sources) Opioid Agonist Start: 03-15-2018 End: 07-04-2018 take 1 tablet by mouth every four to six hours Hydrocodone-Acetam inophen Discontinued 1 TAB PO EVERY 4-6 HOURS March 15, 2018 12:00am July 04, 2018 11:54am acyclovir 400 mg oral tablet (20 sources) Herpesvirus Nucleoside Analog DNA Polymerase Inhibitor, Herpes Simplex Virus Nucleoside Analog DNA Polymerase Inhibitor, Herpes Zoster Virus Nucleoside Analog DNA Polymerase Inhibitor Start: 07-14-2017 End: 03-23-2018 take 1 tablet by mouth once daily Acyclovir Discontinued 1 TAB PO daily 90 November 29, 2017 5:03pm March 23, 2018 3:55pm Start: 10-05-2016 End: 11-07-2019 take 1 tablet by mouth twice daily Acyclovir Discontinued 1 TAB PO Twice daily 180 April 30, 2019 2:30pm November 07, 2019 2:31pm amLODIPine 5 mg oral tablet (20 sources) Dihydropyridine Calcium Channel Valentina Start: 11-17-2021 amLODIPine Besylate 5 MG Oral Tablet Quantity: 90 Refills: 0 Ordered: 16-May-2022 DO Start : 17-Nov-2021 Complete Start: 04-28-2020 Start: 09-20-2018 End: 07-19-2023 take 5 mg by mouth once daily Amlodipine Discontinued 5 MG PO Daily September 20, 2018 1:00am July 19, 2023 10:37am Start: 07-14-2017 End: 12-21-2017 take 1 tablet by mouth once daily Amlodipine Discontinued 1 TAB PO daily July 14, 2017 12:00am December 21, 2017 10:10am take 1 tablet by yaima th every twenty-four hours amLODIPine Besylate 5 MG 1 tablet once a day Active amoxicillin 500 mg oral capsule (5 sources) Penicillin-class Antibacterial Start: 08-10-2018 End: 08-23-2018 take 500 mg by mouth every eight hours Amoxicillin Discontinued 500 MG PO Q8H August 10, 2018 12:00am August 23, 2018 8:42am cephalexin 250 mg oral capsule (10 sources) Cephalosporin Antibacterial Start: 01-08-2020 End: 06-16-2021 take 250 mg by mouth once daily Cephalexin Discontinued 250 MG PO Daily January 08, 2020 1:00am June 16, 2021 9:04am Start: 02-15-2018 End: 03-22-2018 take 250 mg by mouth once daily Cephalexin Discontinued 250 MG PO Daily February 15, 2018 12:00am March 22, 2018 8:44am ciprofloxacin 500 mg oral tablet (2 sources) Quinolone Antimicrobial Start: 01-10-2023 Cipro 500 mg Tab 500 mg = 1 tab(s), Oral, As Directed, Patient to take 1 tab the day before procedure and the 2nd tab the day of procedure once completed, # 2 tab(s), Refills(s) 0, Pharmacy: [facility] [id number], 167, cm, 01/10/23 11:12:00 EST, Height/Length Dosing, 8... Start Date: 01/10/23 Status: Ordered Start: 02-11-2022 Ciprofloxacin HCl - 0.3 % Ophthalmic Solution Quantity: 5 Refills: 0 Ordered: 11-Feb-2022 DO Start : 11-Feb-2022 Complete citric acid 128 mg/ml / sodium citrate 98 mg/ml oral solution (20 sources) Calculi Dissolution Agent, Anti-coagulant Start: 10-06-2021 End: 10-06-2021 take 1 mL by mouth once Sodium Citrate-Citric Acid (Oracit) 490-640 mg/5 mL Solution Discontinued 10 ML PO Once October 06, 2021 1:00am October 06, 2021 9:56am Start: 09-04-2021 Oracit oral so lution Refill(s) 0 Start Date: 09/04/21 Status: Ordered Start: 06-16-2021 take 1 mL by mouth f our times daily Sodium Citrate-Citric Acid (Oracit) 490-640 mg/5 mL Solution Active 10 ML PO Four times daily June 16, 2021 12:00am Oracit 490-640 M G/5ML 10 ml after meals and at bedtime diluted with 1 to 3 ounces of water or juice Orally bid for 90 day(s) Active Oracit 490-640 M G/5ML Oral Solution USE DIRECTED. Quantity: 0 Refills: 0 Ordered: 25-Aug-2021 DO Active clopidogrel 75 mg oral tablet (10 sources) [id number] Platelet Inhibitor Start: 08-11-2018 End: 11-07-2019 take 1 tablet by mouth once daily Clopidogrel (Plavix) 75 mg tablet Discontinued 75 MG PO Daily August 23, 2018 8:41am November 07, 2019 3:50pm cyclobenzaprine hydrochloride 10 mg oral tablet (5 sources) Muscle Relaxant Start: 11-04-2020 End: 07-19-2023 take 10 mg by mouth three times daily Cyclobenzaprine Discontinued 10 MG PO Three times daily November 04, 2020 1:00am July 19, 2023 10:37am ergocalciferol 1.25 mg oral capsule (5 sources) Provitamin D2 Compound Start: 07-14-2017 End: 08-10-2018 take 1 capsule by mouth once daily Ergocalciferol (Vitamin D2) (Vitamin D2) 50,000 unit Capsule Discontinued 1 CAP PO daily July 14, 2017 12:00am August 10, 2018 11:37am linagliptin 5 mg oral tablet (5 sources) Dipeptidyl Peptidase 4 Inhibitor Start: 01-08-2020 End: 09-09-2020 take 1 tablet by mouth once daily Linagliptin (Tradjenta) 5 mg tablet Discontinued 5 MG PO Daily January 08, 2020 1:00am September 09, 2020 10:04am 24 hr oxybutynin chloride 10 mg extended release oral tablet (5 sources) Cholinergic Muscarinic Antagonist Start: 02-15-2018 End: 03-22-2018 take 10 mg by mouth once daily Oxybutynin Chloride Discontinued 10 MG PO Daily February 15, 2018 12:00am March 22, 2018 8:43am predniSONE 20 mg oral tablet (16 sources) Start: 01-02-2021 End: 05-19-2021 take 20 mg by mouth once daily Prednisone Discontinued 20 MG PO Daily January 02, 2021 1:00am May 19, 2021 8:58am 20mg PO daily for two days starting the day after each Daratumumab/Hyaluron idase dose. Start: 07-14-2017 End: 05-18-2018 take 1 tablet by mouth once daily Prednisone Discontinued 1 TAB PO As Directed July 14, 2017 12:00am May 18, 2018 8:33am once daily on and Fridays after chemo predniSONE 50 MG Oral for 5 Days Active PROCRIT INJECTION - 1000 uni ts (20 sources) Start: 07-12-2014 PROCRIT INJECT ION - 1000 units Jun,19990 units Start: 07-12-2014 PROCRIT INJECT ION - 1000 units Jun, 14184 U raNITIdine 150 mg oral tablet (5 sources) Histamine-2 Receptor Antagonist Start: 03-15-2018 End: 07-04-2018 take 150 mg by mouth once daily at bedtime Ranitidine Hcl Discontinued 150 MG PO Daily at bedtime March 15, 2018 12:00am July 04, 2018 11:55am Start: 03-15-2018 End: 07-04-2018 take 150 mg by mouth once daily at bedtime Ranitidine Hcl Discontinued 150 MG PO Daily at bedtime March 14, 2018 11:00pm July 04, 2018 10:55am rivaroxaban 15 mg oral tablet (20 sources) Factor Xa Inhibitor Start: 12-24-2019 Xarelto Or al Start Date: 12/24/19 Status: Ordered Start: 11-07-2019 take 1 tablet by yaima once daily at dinner Rivaroxaban (Xarelto) 15 mg tablet Active 15 MG PO Daily November 07, 2019 1:00am must administer with evening meal triamcinolone acetonide 40 mg/ml injectable suspension (15 sources) Corticosteroid Start: 04-05-2023 Kenalog-40 March, 20 mg Vitamin D3 5000 intl units oral tablet (1 source) Start: 10-05-2016 take 1 tablet by mouth once daily Vitamin D3 5000 intl units oral tablet 5,000 International_Unit = 1 tab(s), Oral, Daily, Prophylaxis Start Date: 10/05/16 Status: Ordered Problems Active Problems Problem Classification Problem Date Documented Date Episodic/Chronic Abdominal pain (12 sources) Abdominal pain; Translations: [Unspecified abdominal pain] Episodic Acute and unspecified renal failure (13 sources) Anemia secondary to renal failure; Translations: [Anemia in CKD (chronic kidney disease)] Chronic Acute cerebrovascular disease (20 sources) Cerebrovascular accident; Translations: [Cerebellar stroke] Onset: 8 12-17-2019 Chronic Aortic; peripheral; and visceral artery aneurysms (18 sources) Ascending aorta dilatation; Translations: [Thoracic aortic ectasia] Onset: 3 10-04-2023 Chronic Calculus of urinary tract (20 sources) Kidney stone; Translations: [Calculus of kidney] Onset: 4 Resolved: 2 Episodic Cardiac dysrhythmias (20 sources) Persistent atrial fibrillation; Translations: [Atrial fibrillation] Onset: 3 01-08-2020 Chronic Cardiac dysrhythmias (5 sources) Palpitations; Translations: [Palpitations] 01-26-2020 Episodic Chronic kidney disease (20 sources) Chronic kidney disease stage 3; Translations: [Chronic kidney disease, Stage III (moderate)] Onset: 5 Resolved: 2 Chronic Chronic kidney disease (2 sources) Chronic kidney disease; Translations: [Chronic kidney disease, stage 3a (CMS/HCC)] Onset: 3 Chronic obstructive pulmonary disease and bronchiectasis (13 sources) Bronchitis; Translations: [Bronchitis, not specified as acute or chronic] Episodic Conditions associated with dizziness or vertigo (20 sources) Dizziness; Translations: [Dizziness and giddiness] Onset: 7 09-21-2017 Episodic Deficiency and other anemia (20 sources) Anemia in chronic kidney disease; Translations: [Anemia in chronic kidney disease] Chronic Deficiency and other anemia (5 sources) Anemia; Translations: [Anemia, unspecified] 09-09-2020 Episodic Deficiency and other anemia (5 sources) Nutritional anemia; Translations: [Vitamin B12 deficiency anemia, unspecified] 06-16-2021 Episodic Deficiency and other anemia (5 sources) Anemia, unspecified; Translations: [Anemia, unspecified] 07-13-2022 Episodic Deficiency and other anemia (5 sources) Vitamin B12 deficiency anemia, unspecified; Translations: [Other vitamin B12 deficiency anemia] 07-13-2022 Episodic Diabetes mellitus with complications (20 sources) Disorder of kidney due to diabetes mellitus; Translations: [Type 2 diabetes mellitus with diabetic nephropathy] Onset: 1 Resolved: 2 Chronic Diabetes mellitus without complication (20 sources) Diabetes mellitus; Translations: [Diabetes mellitus without mention of complication, type II or unspecified type, not stated as uncontrolled] Onset: 4 12-17-2019 Chronic Diabetes mellitus without complication (14 sources) Glycosuria; Translations: [Glycosuria] Onset: 2 Episodic Diseases of mouth; excluding dental (11 sources) Lesion of oral mucosa; Translations: [Other lesions of oral mucosa] Episodic Disorders of lipid metabolism (20 sources) Hyperlipidemia; Translations: [Other and unspecified hyperlipidemia] Onset: 3 12-17-2019 Chronic Essential hypertension (20 sources) Hypertensive disorder; Translations: [Unspecified essential hypertension] Onset: 3 12-17-2019 Chronic Genitourinary symptoms and ill-defined conditions (13 sources) Urge incontinence; Translations: [Urge incontinence of urine] Onset: 2 Chronic Genitourinary symptoms and ill-defined conditions (20 sources) Retention of urine; Translations: [Retention of urine, unspecified] Onset: 1 Resolved: 2 Episodic Heart valve disorders (19 sources) Aortic incompetence, non-rheumatic ; Translations: [Aortic valve disorders] Onset: 3 10-04-2023 Chronic Hypertension with complications and secondary hypertension (20 sources) Chronic kidney disease due to hypertension; Translations: [Hypertensive chronic kidney disease with stage 1 through stage 4 chronic kidney disease, or unspecified chronic kidney disease] Onset: 1 Resolved: 2 Chronic Inflammation; infection of eye (except that caused by tuberculosis or sexually transmitteddisease) (11 sources) Conjunctivitis; Translations: [Unspecified conjunctivitis] Episodic Intrauterine hypoxia and asphyxia (2 sources) Metabolic acidemia, unspecified Episodic Maintenance chemotherapy; radiotherapy (1 source) Encounter for antineoplastic chemotherapy; Translations: [ENCOUNTER FOR ANTINEOPLASTIC CHEMO] Onset: 2 Chronic Malaise and fatigue (2 sources) Weakness Episodic Mood disorders (11 sources) Depression; Translations: [Depression, unspecified] Onset: 5 Chronic Multiple myeloma (20 sources) Multiple myeloma; Translations: [Multiple myeloma, without mention of having achieved remission] Onset: 4 Resolved: 2 12-17-2019 Chronic Nutritional deficiencies (20 sources) Vitamin D deficiency; Translations: [Vitamin D deficiency, unspecified] Onset: 1 Resolved: 2 Chronic Nutritional deficiencies (5 sources) Cobalamin deficiency; Translations: [Deficiency of other specified B group vitamins] 03-19-2020 Episodic Other aftercare (20 sources) Drug therapy finding; Translations: [prison (current) use of systemic steroids] Episodic Other aftercare (20 sources) Long-term current use of insulin; Translations: [prison (current) use of insulin] Episodic Other aftercare (1 source) prison (current) use of aspirin; Translations: [SENIOR CARE CURRENT USE OF ASPIRIN] Onset: 3 Episodic Other aftercare (1 source) Other [facility] (current) drug therapy; Translations: [OTH SENIOR CARE CURRENT DRUG THERAPY] Onset: 3 Episodic Other aftercare (1 source) prison (current) use of insulin; Translations: [SENIOR CARE CURRENT USE OF INSULIN] Onset: 3 Episodic Other aftercare (1 source) [facility] (current) use of anticoagulants; Translations: [SENIOR CARE CURRNT USE ANTICOAGULANTS] Onset: 3 Episodic Other circulatory disease (1 source) Personal history of transient ischemic attack (TIA), and cerebral infarction without residual deficits; Translations: [PERS HX TIA AND CI NO RESID DEFICIT] Onset: 3 Episodic Other circulatory disease (11 sources) Elevated blood-pressure reading without diagnosis of hypertension; Translations: [Elevated blood-pressure reading, without diagnosis of hypertension] Episodic Other connective tissue disease (5 sources) Monoparesis - leg; Translations: [Other symptoms and signs involving the musculoskeletal system] 10-17-2019 Episodic Other connective tissue disease (9 sources) Other symptoms and signs involving the musculoskeletal system; Translations: [Other musculoskeletal symptoms referable to limbs] Onset: 2 07-13-2022 Episodic Other connective tissue disease (13 sources) Acquired trigger finger; Translations: [Trigger finger, left middle finger] Episodic Other connective tissue disease (11 sources) Disorder of musculoskeletal system; Translations: [Other symptoms and signs involving the musculoskeletal system] Episodic Other diseases of kidney and ureters (20 sources) Hyperparathyroidism due to renal insufficiency; Translations: [Secondary hyperparathyroidism of renal origin] Chronic Other diseases of kidney and ureters (6 sources) Secondary hyperparathyroidism of renal origin; Translations: [SEC HYPERPARATHYROIDISM RENAL ORIGN] Onset: 1 Resolved: 2 Chronic Other diseases of kidney and ureters (19 sources) Secondary hyperparathyroidism; Translations: [Secondary hyperparathyroidism of renal origin] Chronic Other ear and sense organ disorders (5 sources) Hearing loss; Translations: [Unspecified hearing loss, unspecified ear] 11-23-2017 Chronic Other ear and sense organ disorders (5 sources) Unspecified hearing loss, unspecified ear; Translations: [Unspecified hearing loss] 07-13-2022 Chronic Other ear and sense organ disorders (1 source) Conductive hearing loss; Translations: [Unspecified conductive hearing loss] Onset: 7 Chronic Other endocrine disorders (20 sources) 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; Translations: [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] Chronic Other lower respiratory disease (11 sources) Dyspnea at rest; Translations: [Shortness of breath] Onset: 3 10-04-2023 Episodic Other nervous system disorders (5 sources) Abnormal gait; Translations: [Unsteadiness on feet] 09-21-2017 Episodic Other nervous system disorders (5 sources) Unsteadiness on feet; Translations: [Abnormality of gait] 07-13-2022 Episodic Other nervous system disorders (11 sources) Impairment of balance; Translations: [Other abnormalities of gait and mobility] Episodic Other nervous system disorders (1 source) Other abnormalities of gait and mobility Episodic Other non-traumatic joint disorders (7 sources) Pain in left knee; Translations: [PAIN IN LEFT KNEE] Onset: 3 Episodic Other nutritional; endocrine; and metabolic disorders (20 sources) Body mass index 30+ - obesity; Translations: [Obesity, unspecified] Chronic Other nutritional; endocrine; and metabolic disorders (5 sources) Obesity; Translations: [Obesity, unspecified] Chronic Other nutritional; endocrine; and metabolic disorders (3 sources) Body mass index 25-29 - overweight; Translations: [Body Mass Index 29.0-29.9, adult] Episodic Other nutritional; endocrine; and metabolic disorders (20 sources) Overweight; Translations: [Overweight] Episodic Other screening for suspected conditions (not mental disorders or infectious disease) (11 sources) Coag./bleeding tests abnormal; Translations: [Abnormal coagulation profile] Episodic Other upper respiratory disease (11 sources) Seasonal allergic rhinitis; Translations: [Other seasonal allergic rhinitis] Onset: 8 Chronic Other upper respiratory infections (11 sources) Acute pharyngitis; Translations: [Acute pharyngitis, unspecified] Episodic Pulmonary heart disease (18 sources) Secondary pulmonary hypertension; Translations: [Other chronic pulmonary heart diseases] Onset: 3 10-04-2023 Chronic Residual codes; unclassified (1 source) Acquired absence of both cervix and uterus; Translations: [ACQUIRED ABSENCE BOTH CERVIX AND UTERUS] Onset: 3 Episodic Residual codes; unclassified (1 source) Acquired absence of other specified parts of digestive tract; Translations: [ACQ ABSENCE OTH PART DIGESTV TRACT] Onset: 3 Episodic Secondary malignancies (1 source) Secondary malignant neoplasm of bone; Translations: [SECONDARY MALIGNANT NEOPLASM BONE] Onset: 2 Chronic Syncope (1 source) Syncope and collapse Episodic Transient cerebral ischemia (1 source) Transient cerebral ischemia; Translations: [Unspecified transient cerebral ischemia] Onset: 8 Chronic Unclassified (2 sources) Drug therapy finding 12-17-2019 Unclassified (1 source) ACIDOSIS UNSPECIFIED; Translations: [ACIDOSIS UNSPECIFIED] Onset: 3 Unclassified (2 sources) CONTACT W/AND (SUSP) EXPOS COVID-19; Translations: [CONTACT W/AND (SUSP) EXPOS COVID-19] Onset: 2 Unclassified (11 sources) 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); Translations: [Post COVID-19 condition, unspecified] Unclassified (2 sources) Other persistent atrial fibrillation; Translations: [Other persistent atrial fibrillation (CMS/HCC)] Onset: 3 Viral infection (15 sources) Viral wart, unspecified; Translations: [Herpes zoster without complication] Onset: 4 Episodic Viral infection (4 sources) COVID-19; Translations: [COVID-19] Onset: 2 Past or Other Problems Problem Classification Problem Date Documented Da te Episodic/Chronic Blindness and vision defects (11 sources) Diplopia; Translations: [Diplopia] Onset: 12-13-2017 Episodic Fluid and electrolyte disorders (4 sources) Acidosis; Translations: [ACIDOSIS] Onset: 09-30-2021 Resolved: 07-07-2022 Episodic Headache; including migraine (1 source) Headache; Translations: [Headache] Onset: 12-13-2017 Episodic Immunizations and screening for infectious disease (1 source) Encounter for immunization; Translations: [ENCOUNTER FOR IMMUNIZATION] Onset: 05-26-2022 Episodic Nonspecific chest pain (1 source) Chest pain; Translations: [Chest pain, Other] Onset: 11-24-2015 Episodic Other and unspecified benign neoplasm (1 source) Benign neoplasm of skin of trunk, excluding scrotum; Translations: [Benign neoplasm of skin of trunk, except scrotum] Onset: 06-22-2018 Episodic Other ear and sense organ disorders (1 source) Disorder of ear; Translations: [Unspecified disorder of ear] Onset: 11-22-2016 Episodic Residual codes; unclassified (1 source) Family history of diabetes mellitus; Translations: [Family history of diabetes mellitus] Onset: 08-06-2014 Episodic Unclassified (8 sources) Never smoked tobacco; Translations: [Never a smoker] Unclassified (1 source) CONTACT W/AND (SUSP) EXPOS COVID-19; Translations: [CONTACT W/AND (SUSP) EXPOS COVID-19] Onset: 05-21-2022 Unclassified (1 source) Lumbar pain M54.50 Unclassified (3 sources) Onset: 10-04-2023 10-04-2023 Results Test Name Value Interpretation Reference Range Facility US Heart TransthoracicOrdere d By: Russel Tolbert on 11-03-2023 Aortic Valve Area by Continuity of Peak Velocity 1.84 [facility] Work Phone: Aortic Valve Area by Continuity of VTI 1.69 [facility] Work Phone: [phone] AV mn grad 4.0 [facility] Work Phone: [phone] AV pk grad 8.8 [facility] Work Phone: [phone] AV pk nisha 1.48 [facility] Work Phone: [phone] LV A4C EF 65.5 [facility] Work Phone: [phone] LVIDd 4.10 [facility] Work Phone: [phone] LVOT diam 2.00 [facility] Work Phone: [phone] MV avg E/e' ratio 17.40 [facility] Work Phone: [phone] MV E/A ratio 1.11 [facility] Work Phone: RVSP 25.3 [facility] Work Phone: [phone] [facility] Work Phone: [phone] [facility] [address], [address] [place] [address] TRANSTHORACIC ECHOCARDIOGRAM REPORT Patient Name: HAILEE TRIVEDI Maida Physician: [id number] Russel Tolbert MD Study Date: 11/02/2023 Ordering Provider: [id number] ELICIA RHODES MRN/PID: [id number] Fellow: Nurse: Date of /Age: 6 1940 / 83 years Sales Training Coordinator: Allyson Dobson RDCS, RVT Gender: F Additional Staff: Height: 167.64 cm Admit Date: Weight: 88.00 kg Admission Status: BSA: 1.97 m2 Department Location: [facility] Blood Pressure: 140 /74 mmHg Study Type: TRANSTHORACIC ECHO (TTE) COMPLETE Diagnosis/ICD: Nonrheumatic aortic (valve) insufficiency-I35.1 ; 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; Pulmonary hypertension, unspecified-I27.20 Indication: Atrial Fibrillation, HTN, Hyperlipidemia, 2/6 Diastolic Murmur, CKD-Stage III-IV, Multiple Myeloma-in Remission, Cerebellar Infarct, Obesity CPT Codes: Echo Complete w Full [id number] Study Detail: The following Echo studies were performed: 2D, M-Mode, Doppler and color flow. PHYSICIAN INTERPRETATION: Left Ventricle: Left ventricular systolic function is normal, with an estimated ejection fraction of 60-65%. There are no regional wall motion abnormalities. The left ventricular cavity size is normal. The left ventricular septal wall thickness is moderately increased. Spectral Doppler shows an impaired relaxation pattern of left ventricular diastolic filling. Left Atrium: The left atrium is upper limits of normal in size. Right Ventricle: The right ventricle is upper limits of normal in size. There is normal right ventricular global systolic function. Right Atrium: The right atrium is normal in size. Aortic Valve: The aortic valve is trileaflet. There is mild to moderate aortic valve thickening. There is moderate aortic valve regurgitation. The peak instantaneous gradient of the aortic valve is 8.8 mmHg. The mean gradient of the aortic valve is 4.0 mmHg. Mitral Valve: The mitral valve is mildly thickened. There is moderate mitral valve regurgitation. Tricuspid Valve: The tricuspid valve is structurally normal. There is mild tricuspid regurgitation. Pulmonic Valve: The pulmonic valve is not well visualized. There is trace pulmonic valve regurgitation. Pericardium: There is no pericardial effusion noted. Aorta: The aortic root is normal. CONCLUSIONS: 1. Left ventricular systolic function is normal with a 60-65% estimated ejection fraction. 2. Moderately increased left ventricular septal thickness. 3. Spectral Doppler shows an impaired relaxation pattern of left ventricular diastolic filling. 4. Moderate mitral valve regurgitation. 5. Moderate aortic valve regurgitation. QUANTITATIVE DATA SUMMARY: 2D MEASUREMENTS: Normal Ranges: Ao Root d: 2.70 cm (2.0-3.7cm) LAs: 3.60 cm (2.7-4.0cm) RVIDd: 3.00 cm (0.9-3.6cm) IVSd: 1.70 cm (0.6-1.1cm) LVPWd: 1.00 cm (0.6-1.1cm) LVIDd: 4.10 cm (3.9-5.9cm) LVIDs: 2.70 cm LV Mass Index: 103.8 g/m2 LV % FS 34.1 % LV SYSTOLIC FUNCTION BY 2D PLANIMETRY (MOD): Normal Ranges: EF-A4C View: 65.5 % (>=55%) LV DIASTOLIC FUNCTION: Normal Ranges: MV Peak E: 1.00 m/s (0.7-1.2 m/s) MV Peak A: 0.90 m/s (0.42-0.7 m/s) E/A Ratio: 1.11 (1.0-2.2) MV lateral e' 0.06 m/s MV medial e' 0.04 m/s E/e' Ratio: 17.40 (<8.0) MITRAL VALVE: Normal Ranges: MV Vmax: 1.06 m/s (<=1.3m/s) MV peak P.5 mmHg (<5mmHg) MV mean P.0 mmHg (<48mmHg) MITRAL INSUFFICIENCY: Normal Ranges: MR Vmax: 534.00 cm/s dP/dt: 826 mmHg/s (>1200mmHg/sec) AORTIC VALVE: Normal Ranges: AoV Vmax: 1.48 m/s (<=1.7m/s) AoV Peak P.8 mmHg (<20mmHg) AoV Mean P.0 mmHg (1.7-11.5mmHg) LVOT Max Nisha: 0.86 m/s (<=1.1m/s) AoV VTI: 39.30 cm (18-25cm) LVOT VTI: 21.20 cm LVOT Diameter: 2.00 cm (1.8-2.4cm) AoV Area, VTI: 1.69 cm2 (2.5-5.5cm2) AoV Area,Vmax: 1.84 cm2 (2.5-4.5cm2) AoV Dimensionless Index: 0.54 AORTIC INSUFFICIENCY: AI Vmax: 4.48 m/s AI Half-time: 379 msec AI Decel Rate: 35 (more content not included)... ÁNGELO Russel Tolbert MD - 11/03/[address], Suite [facility], [place] [address] TRANSTHORACIC ECHOCARDIOGRAM REPORT Patient Name: HAILEE BAEZAALDA Bey Physician: [id number] Russel Tolbert MD Study Date: 11/02/2023 Ordering Provider: [id number] ELICIA RHODES MRN/PID: [id number] Fellow: Nurse: Date of /Age: 6 1940 / 83 years Sales Training Coordinator: Allyson Dobson RDCS, RVT Gender: F Additional Staff: Height: 167.64 cm Admit Date: Weight: 88.00 kg Admission Status: BSA: 1.97 m2 Department Location: [facility] Blood Pressure: 140 /74 mmHg Study Type: TRANSTHORACIC ECHO (TTE) COMPLETE Diagnosis/ICD: Nonrheumatic aortic (valve) insufficiency-I35.1 ; 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; Pulmonary hypertension, unspecified-I27.20 Indication: Atrial Fibrillation, HTN, Hyperlipidemia, 2/6 Diastolic Murmur, CKD-Stage III-IV, Multiple Myeloma-in Remission, Cerebellar Infarct, Obesity CPT Codes: Echo Complete w Full [id number] Study Detail: The following Echo studies were performed: 2D, M-Mode, Doppler and color flow. PHYSICIAN INTERPRETATION: Left Ventricle: Left ventricular systolic function is normal, with an estimated ejection fraction of 60-65%. There are no regional wall motion abnormalities. The left ventricular cavity size is normal. The left ventricular septal wall thickness is moderately increased. Spectral Doppler shows an impaired relaxation pattern of left ventricular diastolic filling. Left Atrium: The left atrium is upper limits of normal in size. Right Ventricle: The right ventricle is upper limits of normal in size. There is normal right ventricular global systolic function. Right Atrium: The right atrium is normal in size. Aortic Valve: The aortic valve is trileaflet. There is mild to moderate aortic valve thickening. There is moderate aortic valve regurgitation. The peak instantaneous gradient of the aortic valve is 8.8 mmHg. The mean gradient of the aortic valve is 4.0 mmHg. Mitral Valve: The mitral valve is mildly thickened. There is moderate mitral valve regurgitation. Tricuspid Valve: The tricuspid valve is structurally normal. There is mild tricuspid regurgitation. Pulmonic Valve: The pulmonic valve is not well visualized. There is trace pulmonic valve regurgitation. Pericardium: There is no pericardial effusion noted. Aorta: The aortic root is normal. CONCLUSIONS: 1. Left ventricular systolic function is normal with a 60-65% estimated ejection fraction. 2. Moderately increased left ventricular septal thickness. 3. Spectral Doppler shows an impaired relaxation pattern of left ventricular diastolic filling. 4. Moderate mitral valve regurgitation. 5. Moderate aortic valve regurgitation. QUANTITATIVE DATA SUMMARY: 2D MEASUREMENTS: Normal Ranges: Ao Root d: 2.70 cm (2.0-3.7cm) LAs: 3.60 cm (2.7-4.0cm) RVIDd: 3.00 cm (0.9-3.6cm) IVSd: 1.70 cm (0.6-1.1cm) LVPWd: 1.00 cm (0.6-1.1cm) LVIDd: 4.10 cm (3.9-5.9cm) LVIDs: 2.70 cm LV Mass Index: 103.8 g/m2 LV % FS 34.1 % LV SYSTOLIC FUNCTION BY 2D PLANIMETRY (MOD): Normal Ranges: EF-A4C View: 65.5 % (>=55%) LV DIASTOLIC FUNCTION: Normal Ranges: MV Peak E: 1.00 m/s (0.7-1.2 m/s) MV Peak A: 0.90 m/s (0.42-0.7 m/s) E/A Ratio: 1.11 (1.0-2.2) MV lateral e' 0.06 m/s MV medial e' 0.04 m/s E/e' Ratio: 17.40 (<8.0) MITRAL VALVE: Normal Ranges: MV Vmax: 1.06 m/s (<=1.3m/s) MV peak P.5 mmHg (<5mmHg) MV mean P.0 mmHg (<48mmHg) MITRAL INSUFFICIENCY: Normal Ranges: MR Vmax: 534.00 cm/s dP/dt: 826 mmHg/s (>1200mmHg/sec) AORTIC VALVE: Normal Ranges: AoV Vmax: 1.48 m/s (<=1.7m/s) AoV Peak P.8 mmHg (<20mmHg) AoV Mean P.0 mmHg (1.7-11.5mmHg) LVOT Max Nisha: 0.86 m/s (<=1.1m/s) AoV VTI: 39.30 cm (18-25cm) LVOT VTI: 21.20 cm LVOT Diameter: 2.00 cm (1.8-2.4cm) AoV Area, VTI: 1.69 cm2 (2.5-5.5cm2) AoV Area,Vmax: 1.84 cm2 (2.5-4.5cm2) AoV Dimensionless Index: 0.54 AORTIC INSUFFICIENCY: AI Vmax: 4.48 m/s AI Half-time: 379 msec AI Decel Rate: 352.50 cm/s2 TRICUSPID VALVE/RVSP: Normal Ranges: Peak TR Velocity: 2.36 m/s RV Syst Pressure: 25.3 mmHg (< 30mmHg) PULMONIC VALVE: Normal Ranges: PV Max Nisha: 0.7 m/s (0.6-0.9m/s) PV Max P.0 mmHg PIEDV: 2.22 m/s PADP: 22.7 mmHg [id number] Russel Tolbert MD Electronically signed on 11/03/2023 at 11:22:05 AM Final [facility] Work Phone: TRAN[facility]HORACIC [facility]CHO (TTE) [facility]STHORACIC ECHO (TTE) COMPLETE [address], [place] [address] TRANSTHORACIC ECHOCARDIOGRAM REPORT Patient Name: HAILEE TRIVEDI Maida Physician: [id number] Russel Tolbert MD Study Date: 11/02/2023 Ordering Provider: [id number] ELICIA RHODES MRN/PID: [id number] Fellow: Nurse: Date of /Age: 6 1940 / 83 years Sales Training Coordinator: Allyson Dobson RDCS, RVT Gender: F Additional Staff: Height: 167.64 cm Admit Date: Weight: 88.00 kg Admission Status: BSA: 1.97 m2 Department Location: [facility] Blood Pressure: 140 /74 mmHg Study Type: TRANSTHORACIC ECHO (TTE) COMPLETE Diagnosis/ICD: Nonrheumatic aortic (valve) insufficiency-I35.1 ; 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; Pulmonary hypertension, unspecified-I27.20 Indication: Atrial Fibrillation, HTN, Hyperlipidemia, 2/6 Diastolic Murmur, CKD-Stage III-IV, Multiple Myeloma-in Remission, Cerebellar Infarct, Obesity CPT Codes: Echo Complete w Full [id number] Study Detail: The following Echo studies were performed: 2D, M-Mode, Doppler and color flow. PHYSICIAN INTERPRETATION: Left Ventricle: Left ventricular systolic function is normal, with an estimated ejection fraction of 60-65%. There are no regional wall motion abnormalities. The left ventricular cavity size is normal. The left ventricular septal wall thickness is moderately increased. Spectral Doppler shows an impaired relaxation pattern of left ventricular diastolic filling. Left Atrium: The left atrium is upper limits of normal in size. Right Ventricle: The right ventricle is upper limits of normal in size. There is normal right ventricular global systolic function. Right Atrium: The right atrium is normal in size. Aortic Valve: The aortic valve is trileaflet. There is mild to moderate aortic valve thickening. There is moderate aortic valve regurgitation. The peak instantaneous gradient of the aortic valve is 8.8 mmHg. The mean gradient of the aortic valve is 4.0 mmHg. Mitral Valve: The mitral valve is mildly thickened. There is moderate mitral valve regurgitation. Tricuspid Valve: The tricuspid valve is structurally normal. There is mild tricuspid regurgitation. Pulmonic Valve: The pulmonic valve is not well visualized. There is trace pulmonic valve regurgitation. Pericardium: There is no pericardial effusion noted. Aorta: The aortic root is normal. CONCLUSIONS: 1. Left ventricular systolic function is normal with a 60-65% estimated ejection fraction. 2. Moderately increased left ventricular septal thickness. 3. Spectral Doppler shows an impaired relaxation pattern of left ventricular diastolic filling. 4. Moderate mitral valve regurgitation. 5. Moderate aortic valve regurgitation. QUANTITATIVE DATA SUMMARY: 2D MEASUREMENTS: Normal Ranges: Ao Root d: 2.70 cm (2.0-3.7cm) LAs: 3.60 cm (2.7-4.0cm) RVIDd: 3.00 cm (0.9-3.6cm) IVSd: 1.70 cm (0.6-1.1cm) LVPWd: 1.00 cm (0.6-1.1cm) LVIDd: 4.10 cm (3.9-5.9cm) LVIDs: 2.70 cm LV Mass Index: 103.8 g/m2 LV % FS 34.1 % LV SYSTOLIC FUNCTION BY 2D PLANIMETRY (MOD): Normal Ranges: EF-A4C View: 65.5 % (>=55%) LV DIASTOLIC FUNCTION: Normal Ranges: MV Peak E: 1.00 m/s (0.7-1.2 m/s) MV Peak A: 0.90 m/s (0.42-0.7 m/s) E/A Ratio: 1.11 (1.0-2.2) MV lateral e' 0.06 m/s MV medial e' 0.04 m/s E/e' Ratio: 17.40 (<8.0) MITRAL VALVE: Normal Ranges: MV Vmax: 1.06 m/s (<=1.3m/s) MV peak P.5 mmHg (<5mmHg) MV mean P.0 mmHg (<48mmHg) MITRAL INSUFFICIENCY: Normal Ranges: MR Vmax: 534.00 cm/s dP/dt: 826 mmHg/s (>1200mmHg/sec) AORTIC VALVE: Normal Ranges: AoV Vmax: 1.48 m/s (<=1.7m/s) AoV Peak P.8 mmHg (<20mmHg) AoV Mean P.0 mmHg (1.7-11.5mmHg) LVOT Max Nisha: 0.86 m/s (<=1.1m/s) AoV VTI: 39.30 cm (18-25cm) LVOT VTI: 21.20 cm LVOT Diameter: 2.00 cm (1.8-2.4cm) AoV Area, VTI: 1.69 cm2 (2.5-5.5cm2) AoV Area,Vmax: 1.84 cm2 (2.5-4.5cm2) AoV Dimensionless Index: 0.54 AORTIC INSUFFICIENCY: AI Vmax: 4.48 m/s AI Half-time: 379 msec AI Decel Rate: 352.50 cm/s2 TRICUSPID VALVE/RVSP: Normal Ranges: Peak TR Velocity: 2.36 m/s RV Syst Pressure: 25.3 mmHg (< 30mmHg) PULMONIC VALVE: Normal Ranges: PV Max Nisha: 0.7 m/s (0.6-0.9m/s) PV Max P.0 mmHg PIEDV: 2.22 m/s PADP: 22.7 mmHg [id number] Russel Tolbert MD Electronically signed on 11/03/2023 at 11:22:05 AM Final Normal [facility] Complete Blood Count Auto Di ffon 10-18-2023 Basophils (Bld) [#/Vol] 0.1 10*3/uL Normal 0.0-0.2 [facility] Comment on above: Result Comment: PERF ORMED BY: [place] [address] PATHOLOGIST CCIE LUIS DEE M.D. Performed By: #### C BC, EBS A1C, CMP wRFX A1C #### [facility] [address] [place] [address] #### KAPPA, SPE #### [facility] , Basophils/100 WBC (Bld) 1.2 % Normal . [facility] Comment on above: Performed By: #### C BC, EBS A1C, CMP wRFX A1C #### [facility] [address] [place] [address] [place] #### KAPPA, SPE #### [facility] , Eosinophils (Bld) [#/Vol] 0.1 10*3/uL Normal 0.0-0.45 [facility] Comment on above: Performed By: #### C BC, EBS A1C, CMP wRFX A1C #### [facility] [address] [place] [address] [place] #### KAPPA, SPE #### [facility] , Eosinophils/100 WBC (Bld) 1.1 % Normal . [facility] Comment on above: Performed By: #### C BC, EBS A1C, CMP wRFX A1C #### [facility] [address] [place] [address] [place] #### KAPPA, SPE #### [facility] , Erythrocyte distribution width (RBC) [Ratio] 14.6 % Normal 11.9-15.3 [facility] Comment on above: Performed By: #### C BC, EBS A1C, CMP wRFX A1C #### [place] [address] [place] #### KAPPA, SPE #### [facility] , Hematocrit (Bld) [Volume fraction] 36.0 % Normal 34.0-46.4 [facility] Comment on above: Performed By: #### C BC, EBS A1C, CMP wRFX A1C #### [place] [address] [place] #### KAPPA, SPE #### [facility] , Hemoglobin (Bld) [Mass/Vol] 11.8 g/dL Normal 11.8-15.4 [facility] Comment on above: Performed By: #### C BC, EBS A1C, CMP wRFX A1C #### [address] #### KAPPA, SPE #### [facility] , Lymphocytes (Bld) [#/Vol] 2.5 10*3/uL Normal 1.00-4.8 [facility] Comment on above: Performed By: #### C BC, EBS A1C, CMP wRFX A1C #### [place] [address] [place] #### KAPPA, SPE #### [facility] , Lymphocytes/100 WBC (Bld) 30.2 % Normal . [facility] Comment on above: Performed By: #### C BC, EBS A1C, CMP wRFX A1C #### [place] [address] [place] #### KAPPA, SPE #### [facility] , MCH (RBC) [Entitic mass] 31.8 pg Normal 24.7-34.3 [facility] Comment on above: Performed By: #### C BC, EBS A1C, CMP wRFX A1C #### [place] [address] [place] #### KAPPA, SPE #### [facility] , MCV (RBC) [Entitic vol] 96.9 fL Normal 80-100 F [facility] Comment on above: Performed By: #### C BC, EBS A1C, CMP wRFX A1C #### [facility] [address] [place] [address] [place] #### KAPPA, SPE #### [facility] , Mean Corpuscular HGB Conc 32.8 g/dL Normal 32.0-35.0 [facility] Comment on above: Performed By: #### C BC, EBS A1C, CMP wRFX A1C #### [facility] [address] [place] [address] [place] #### KAPPA, SPE #### [facility] , Monocytes (Bld) [#/Vol] 0.6 10*3/uL Normal 0.0-0.8 [facility] Comment on above: Performed By: #### C BC, EBS A1C, CMP wRFX A1C #### [facility] [address] [place] [address] [place] #### KAPPA, SPE #### [facility] , Monocytes/100 WBC (Bld) 7.6 % Normal . [facility] Comment on above: Performed By: #### C BC, EBS A1C, CMP wRFX A1C #### [facility] [address] [place] [address] [place] #### KAPPA, SPE #### [facility] , Neutrophils (Bld) [#/Vol] 4.9 10*3/uL Normal 1.8-7.7 [facility] Comment on above: Performed By: #### C BC, EBS A1C, CMP wRFX A1C #### [facility] [address] [place] [address] [place] #### KAPPA, SPE #### [facility] , Neutrophils/100 WBC (Bld) 59.9 % Normal . [facility] Comment on above: Performed By: #### C BC, EBS A1C, CMP wRFX A1C #### [facility] [address] [place] [address] [place] #### KAPPA, SPE #### [facility] , NRBC% 0.1 /100{WBC} Normal 0-0.5 [facility] Comment on above: Performed By: #### C BC, EBS A1C, CMP wRFX A1C #### [facility] [address] [place] [address] [place] #### KAPPA, SPE #### [facility] , Platelet mean volume (Bld) [Entitic vol] 9.8 fL Normal 6.3-10.7 [facility] Comment on above: Performed By: #### C BC, EBS A1C, CMP wRFX A1C #### [facility] [address] [place] [address] [place] #### KAPPA, SPE #### [facility] , Platelets (Bld) [#/Vol] 199 10*3/uL Normal 150-450 [facility] Comment on above: Performed By: #### C BC, EBS A1C, CMP wRFX A1C #### [place] [address] [place] #### KAPPA, SPE #### [facility] , RBC (Bld) [#/Vol] 3.72 10*6/uL Normal 3.60-5.00 [facility] Comment on above: Performed By: #### C BC, EBS A1C, CMP wRFX A1C #### [facility] [address] [place] [address] [place] #### KAPPA, SPE #### [facility] , WBC (Bld) [#/Vol] 8.2 10*3/uL Normal 3.8-11.6 [facility] Comment on above: Performed By: #### C BC, EBS A1C, CMP wRFX A1C #### [facility] [address] [place] [address] [place] #### KAPPA, SPE #### [facility] , Comprehensive Metabolic Pane nat[place] 10-18-2023 Albumin [Mass/Vol] 3.8 g/dL Normal 3.5-5.7 [facility] Comment on above: Performed By: #### C BC, EBS A1C, CMP wRFX A1C #### [facility] [address] [place] [address] [place] #### KAPPA, SPE #### [facility] , Albumin/Globulin [Mass ratio] 1.5 {ratio} Normal [facility] Comment on above: Performed By: #### C BC, EBS A1C, CMP wRFX A1C #### [facility] [address] [place] [address] [place] #### KAPPA, SPE #### [facility] , ALP [Catalytic activity/Vol] 94 U/L Normal 34-104 [facility] Comment on above: Performed By: #### C BC, EBS A1C, CMP wRFX A1C #### [facility] [address] [place] [address] [place] #### KAPPA, SPE #### [facility] , ALT [Catalytic activity/Vol] 9 U/L Normal 7-52 [facility] Comment on above: Performed By: #### C BC, EBS A1C, CMP wRFX A1C #### [facility] [address] [place] [address] [place] #### KAPPA, SPE #### [facility] , Anion gap [Moles/Vol] 10.7 mmol/L Normal 6.0-15.0 [facility] Comment on above: Performed By: #### C BC, EBS A1C, CMP wRFX A1C #### [facility] [address] [place] [address] [place] #### KAPPA, SPE #### [facility] , AST [Catalytic activity/Vol] 14 U/L Normal 13-39 [facility] Comment on above: Performed By: #### C BC, EBS A1C, CMP wRFX A1C #### [facility] [address] [place] [address] [place] #### KAPPA, SPE #### [facility] , Bilirubin [Mass/Vol] 0.4 mg/dL Normal 0.3-1.0 [facility] Comment on above: Performed By: #### C BC, EBS A1C, CMP wRFX A1C #### [facility] [address] [place] [address] [place] #### KAPPA, SPE #### [facility] , Calcium [Mass/Vol] 8.7 mg/dL Normal 8.6-10.3 [facility] Comment on above: Performed By: #### C BC, EBS A1C, CMP wRFX A1C #### [facility] [address] [place] [address] [place] #### KAPPA, SPE #### [facility] , Chloride [Moles/Vol] 108 mmol/L High 98-107 [facility] Comment on above: Performed By: #### C BC, EBS A1C, CMP wRFX A1C #### [facility] [address] [place] [address] [place] #### KAPPA, SPE #### [facility] , CO2 [Moles/Vol] 24.2 mmol/L Normal 21.0-31.0 [facility] Comment on above: Performed By: #### C BC, EBS A1C, CMP wRFX A1C #### [facility] [address] [place] [address] [place] #### KAPPA, SPE #### [facility] , Creatinine [Mass/Vol] 2.36 mg/dL High 0.60-1.20 [facility] Comment on above: Performed By: #### C BC, EBS A1C, CMP wRFX A1C #### [facility] [address] [place] [address] [place] #### KAPPA, SPE #### [facility] , Creatinine Clr Calc Pharmacy 20.65 [facility] Comment on above: Result Comment: PERF ORMED BY: [place] [address] PATHOLOGIST CCIE LUIS DEE M.D. Performed By: #### C BC, EBS A1C, CMP wRFX A1C #### [place] [address] [place] #### KAPPA, SPE #### [facility] , GFR/1.73 sq M.predicted MDRD (S/P/Bld) [Vol rate/Area] 20.198 mL/min/{1.73_m2} [facility] Comment on above: Performed By: #### C BC, EBS A1C, CMP wRFX A1C #### [place] [address] [place] #### KAPPA, SPE #### [facility] , Globulin (S) [Mass/Vol] 2.5 g/dL Normal [facility] Comment on above: Performed By: #### C BC, EBS A1C, CMP wRFX A1C #### [place] [address] [place] #### KAPPA, SPE #### [facility] , Glucose [Mass/Vol] 176 mg/dL High 70-100 [facility] Comment on above: Result Comment: [facility] Glucose Reference Range is dependent on time and content of last meal. Glucose of more than 200 mg/dL in a nonstressed, ambulatory subject supports the diagnosis of Diabetes Mellitus. ADA recommended reference range Performed By: #### C BC, EBS A1C, CMP wRFX A1C #### [place] [address] [place] #### KAPPA, SPE #### [facility] , Potassium [Moles/Vol] 4.9 mmol/L Normal 3.5-5.1 [facility] Comment on above: Performed By: #### C BC, EBS A1C, CMP wRFX A1C #### [place] [address] [place] #### KAPPA, SPE #### [facility] , Protein [Mass/Vol] 6.3 g/dL Low 6.4-8.9 [facility] Comment on above: Performed By: #### C BC, EBS A1C, CMP wRFX A1C #### [facility] [address] [place] [address] [place] #### KAPPA, SPE #### [facility] , Sodium [Moles/Vol] 138 mmol/L Normal 136-145 [facility] Comment on above: Performed By: #### C BC, EBS A1C, CMP wRFX A1C #### [facility] [address] [place] [address] [place] #### KAPPA, SPE #### [facility] , Urea nitrogen [Mass/Vol] 35 mg/dL High 7-25 [facility] Comment on above: Performed By: #### C BC, EBS A1C, CMP wRFX A1C #### [facility] [address] [place] [address] [place] #### KAPPA, SPE #### [facility] , Free K+L LT Chains, Qn, Son 10-18-2023 Free [place] Light Chains, S 39.7 mg/L High 3.3-19.4 [facility] Comment on above: Performed By: #### C BC, EBS A1C, CMP wRFX A1C #### [facility] [address] [place] [address] [place] #### KAPPA, SPE #### [facility] , Free [place] Light Chains, S 23.4 mg/L Normal 5.7-26.3 [facility] Comment on above: Performed By: #### C BC, EBS A1C, CMP wRFX A1C #### [facility] [address] [place] [address] [place] #### KAPPA, SPE #### [facility] , [place]/Lambda Ratio, S 1.70 High 0.26-1.65 [facility] Comment on above: Result Comment: Perf ormed at: CB - [facility] [address] [id number] Emergency Medicine Medical Director: Elpidio Delgado PhD, Phone: [phone] PERFORMED BY: [place] [address] PATHOLOGIST CCIE LUIS DEE M.D. Performed By: #### C BC, EBS A1C, CMP wRFX A1C #### [place] [address] [place] #### KAPPA, SPE #### [facility] , Immunofixation,Serumon 10-18 Immunofixation, Serum Normal . [facility] Comment on above: Result Comment: No m onoclonality detected. Performed By: #### C BC, EBS A1C, CMP wRFX A1C #### [address] #### KAPPA, SPE #### [facility] , Immunoglobulin A, Serum 162 mg/dL Normal 64-422 F [facility] Comment on above: Performed By: #### C BC, EBS A1C, CMP wRFX A1C #### [place] [address] [place] #### KAPPA, SPE #### [facility] , Immunoglobulin G 708 mg/dL Normal 586-1602 [facility] Comment on above: Performed By: #### C BC, EBS A1C, CMP wRFX A1C #### [place] [address] [place] #### KAPPA, SPE #### [facility] , Immunoglobulin M, Serum 117 mg/dL Normal 26-217 [facility] Comment on above: Result Comment: Perf ormed at: - [facility] [address] [id number] Emergency Medicine Medical Director: Elpidio Delgado PhD, Phone: [phone] Performed By: #### C BC, EBS A1C, CMP wRFX A1C #### [place] [address] [place] #### KAPPA, SPE #### [facility] , Protein Electrophoresis, Ser umon 10-18-2023 Albumin [Mass/Vol] 3.6 g/dL Normal 2.9-4.4 [facility] Comment on above: Performed By: #### C BC, EBS A1C, CMP wRFX A1C #### [facility] [address] [place] [address] [place] #### KAPPA, SPE #### [facility] , Albumin/Globulin [Mass ratio] 1.3 {ratio} Normal 0.7-1.7 [facility] Comment on above: Performed By: #### C BC, EBS A1C, CMP wRFX A1C #### [place] [address] [place] #### KAPPA, SPE #### [facility] , Tqklt-2-Tpmhptcv 0.2 g/dL Normal 0.0-0.4 [facility] Comment on above: Performed By: #### C BC, EBS A1C, CMP wRFX A1C #### [place] [address] [place] #### KAPPA, SPE #### [facility] , Dgzih-6-Fytxxelp 0.9 g/dL Normal 0.4-1.0 [facility] Comment on above: Performed By: #### C BC, EBS A1C, CMP wRFX A1C #### [place] [address] [place] #### KAPPA, SPE #### [facility] , Beta Globulin 0.9 g/dL Normal 0.7-1.3 [facility] Comment on above: Performed By: #### C BC, EBS A1C, CMP wRFX A1C #### [place] [address] [place] #### KAPPA, SPE #### [facility] , Gamma Globulin 0.8 g/dL Normal 0.4-1.8 [facility] Comment on above: Performed By: #### C BC, EBS A1C, CMP wRFX A1C #### [facility] [address] [place] [address] [place] #### KAPPA, SPE #### [facility] , Globulin (S) [Mass/Vol] 2.8 g/dL Normal 2.2-3.9 [facility] Comment on above: Performed By: #### C BC, EBS A1C, CMP wRFX A1C #### [facility] [address] [place] [address] [place] #### KAPPA, SPE #### [facility] , M-Krystian Not Observed Normal Not Observed [facility] Comment on above: Performed By: #### C BC, EBS A1C, CMP wRFX A1C #### [place] [address] [place] #### KAPPA, SPE #### [facility] , Protein [Mass/Vol] 6.4 g/dL Normal 6.0-8.5 [facility] Comment on above: Performed By: #### C BC, EBS A1C, CMP wRFX A1C #### [facility] [address] [place] [address] [place] #### KAPPA, SPE #### [facility] , SPE-Note Normal . [facility] Comment on above: Result Comment: Prot ein electrophoresis scan will follow via computer, mail, or mule driver delivery. Performed By: #### C BC, EBS A1C, CMP wRFX A1C #### [facility] [address] [place] [address] [place] #### KAPPA, SPE #### [facility] , ECG 12 [place] 10-04-2023 Normal sinus rhythm [facility] Work Phone: Automated erythrocytes count in urine sediment (number/area)Ordered By: Claire Choi on 07-19-2023 RBC Auto (Urine sed) [#/Area] 0-1 [HPF] 0-4 [facility] Automated leukocytes count i n urine sediment (number/area)Ordered By: Claire Choi on 07-19-2023 WBC Auto (Urine sed) [#/Area] 0-1 [HPF] 0-4 [facility] Bilirubin Test strip Ql (U)O rdered By: Claire Choi on 07-19-2023 Bilirubin Ql (U) Negative Negative [facility] Color Auto (U)Ordered By: Reynaldo Choi on 07-19-2023 Color (U) Yellow Yellow [facility] Dipstick and Microscopicon 0 07-19-2023 Appearance (U) Clear Normal Clear [facility] Comment on above: Order Comment: Name Collection Type:: Voided Performed By: #### A DDONUAPLUS #### [facility] [address] [place] [address] [place] Bacteria,Urine None Seen Normal None Seen [facility] Comment on above: Order Comment: Name Collection Type:: Voided Performed By: #### A DDONUAPLUS #### [facility] [address] [place] [address] [place] Bilirubin,Urine Negative Normal Negative [facility] Comment on above: Order Comment: Name Collection Type:: Voided Performed By: #### A DDONUAPLUS #### [facility] [address] [place] [address] [place] Color (U) Yellow Normal Yellow [facility] Comment on above: Order Comment: Name Collection Type:: Voided Performed By: #### A DDONUAPLUS #### [facility] [address] [place] [address] [place] Glucose Ql (U) Normal Normal Normal [facility] Comment on above: Order Comment: Name Collection Type:: Voided Performed By: #### A DDONUAPLUS #### [facility] [address] [place] [address] [place] Hyaline Casts,Urine None Seen Normal 0-8 [facility] Comment on above: Order Comment: Name Collection Type:: Voided Result Comment: PERF ORMED BY: [place] [address] PATHOLOGIST CCIE LUIS DEE M.D. Performed By: #### A DDONUAPLUS #### [address] Ketones Ql (U) Negative Normal Negative [facility] Comment on above: Order Comment: Name Collection Type:: Voided Performed By: #### A DDONUAPLUS #### [address] Leukocyte esterase Test strip Ql (U) Negative Normal Negative [facility] Comment on above: Order Comment: Name Collection Type:: Voided Performed By: #### A DDONUAPLUS #### [place] [address] [place] Nitrite,Urine Negative Normal Negative [facility] Comment on above: Order Comment: Name Collection Type:: Voided Performed By: #### A DDONUAPLUS #### [address] Occult Blood,Urine Negative Normal Negative [facility] Comment on above: Order Comment: Name Collection Type:: Voided Result Comment: PERF ORMED BY: [place] [address] PATHOLOGIST CCIE LUIS DEE M.D. Performed By: #### A DDONUAPLUS #### [address] pH (U) 6.0 [pH] Normal 5.0-9.0 [facility] Comment on above: Order Comment: Name Collection Type:: Voided Performed By: #### A DDONUAPLUS #### [address] Protein (U) [Mass/Vol] 100 mg/dL High Negative [facility] Comment on above: Order Comment: Name Collection Type:: Voided Performed By: #### A DDONUAPLUS #### [place] [address] [place] RBC LM.HPF (Urine sed) [#/Area] 0 /[HPF] Normal 0-4 [facility] Comment on above: Order Comment: Name Collection Type:: Voided Performed By: #### A DDONUAPLUS #### [facility] [address] Specificy [place],Urine 1.018 Normal 1.001-1.030 [facility] Comment on above: Order Comment: Name Collection Type:: Voided Performed By: #### A DDONUAPLUS #### [facility] [address] [place] [address] Squamous Epithelial Cell,Urine 0-1 Normal 0-2 [facility] Comment on above: Order Comment: Name Collection Type:: Voided Performed By: #### A DDONUAPLUS #### [address] Urobilinogen,Urine Normal Normal Normal [facility] Comment on above: Order Comment: Name Collection Type:: Voided Performed By: #### A DDONUAPLUS #### [facility] [address] [place] [address] WBC LM.HPF (Urine sed) [#/Area] 0 /[HPF] Normal 0-4 [facility] Comment on above: Order Comment: Name Collection Type:: Voided Performed By: #### A DDONUAPLUS #### [address] Ketones Auto test strip (U) [Mass/Vol]Ordered By: Claire Choi on 07-19-2023 Ketones (U) [Mass/Vol] Negative Negative [facility] - UrinalysisOrder ed By: Claire Choi on 07-19-2023 Hyaline casts LM Ql (Urine sed) None seen [LPF] 0-8 [facility] Nitrite Test strip Ql (U)Ord ered By: Claire Choi on 07-19-2023 Nitrite Ql (U) Negative Negative [facility] Protein Auto test strip (U) [Mass/Vol]Ordered By: Claire Choi on 07-19-2023 Protein (U) [Mass/Vol] 100 mg/dL Negative [facility] Specific gravity Auto test s trip (U) [Rel density]Ordered By: Claire Choi on 07-19-2023 Specific gravity (U) [Rel density] 1.018 1.001-1.030 [facility] Squamous epithelial cells de tection in urine sediment by light microscopyOrdered By: Claire Choi on 07-19-2023 Epithelial cells.squamous LM Ql (Urine sed) 0-1 [HPF] 0-2 [facility] Urine bacteria detection by automated methodOrdered By: Claire Choi on 07-19-2023 Bacteria Auto Ql (U) None seen None Seen [facility] Urine clarity by refractomet ry automatedOrdered By: Claire Choi on 07-19-2023 Clarity Refractometry automated (U) Clear Clear [facility] Urine glucose measurement by automated test strip (mass/volume)Ordered By: Claire Choi on 07-19-2023 Glucose Auto test strip (U) [Mass/Vol] Normal mg/dL Normal [facility] Urine hemoglobin detection b y automated test stripOrdered By: Claire Choi on 07-19-2023 Hemoglobin Auto test strip Ql (U) Negative Negative [facility] Urine leukocyte esterase det ection by automated test stripOrdered By: Claire Choi on 07-19-2023 Leukocyte esterase Auto test strip Ql (U) Negative Negative [facility] Urobilinogen Auto test strip (U) [Mass/Vol]Ordered By: Claire Choi on 07-19-2023 Urobilinogen (U) [Mass/Vol] Normal mg/dL Normal [facility] pH Auto test strip (U)Ordere d By: Claire Choi on 07-19-2023 pH (U) 6.0 [pH] 5.0-9.0 [facility] Alanine aminotransferase [En zymatic activity/volume] in Serum or PlasmaOrdered By: Misti Connolly on 07-12-2023 ALT [Catalytic activity/Vol] 12 U/L 7-52 [facility] Albumin [Mass/volume] in Ser um or PlasmaOrdered By: Misti Connolly on 07-12-2023 Albumin [Mass/Vol] 3.5 g/dL 2.9-4.4 [facility] Albumin [Mass/volume] in Ser um or Plasma by Bromocresol green (BCG) dye binding methoOrdered By: Misti Mohsen on 07-12-2023 Albumin BCG dye [Mass/Vol] 3.6 g/dL 3.5-5.7 [facility] Alkaline phosphatase [Enzyma tic activity/volume] in Serum or PlasmaOrdered By: Misti Mohsen on 07-12-2023 ALP [Catalytic activity/Vol] 83 U/L 34-104 [facility] Aspartate aminotransferase [ Enzymatic activity/volume] in Serum or PlasmaOrdered By: Misti Mohsen on 07-12-2023 AST [Catalytic activity/Vol] 14 U/L 13-39 [facility] Basophils Auto (Bld) [#/Vol] Ordered By: Misti Mohsen on 07-12-2023 Basophils (Bld) [#/Vol] 0.0 10*3/uL 0.0-0.2 [facility] Basophils/100 WBC Auto (Bld) Ordered By: Misti Mohsen on 07-12-2023 Basophils/100 WBC (Bld) 0.4 % . F [facility] Bilirubin.total [Mass/volume ] in Serum or PlasmaOrdered By: Misti Mohsen on 07-12-2023 Bilirubin [Mass/Vol] 0.4 mg/dL 0.3-1.0 [facility] CMP with reflex to A1Con Albumin [Mass/Vol] 3.6 g/dL Normal 3.5-5.7 [facility] Comment on above: Performed By: #### C BC, EBS A1C, CMP wRFX A1C #### [facility] [address] [place] [address] [place] #### KAPPA, SPE #### [facility] , Albumin/Globulin [Mass ratio] 1.3 {ratio} Normal 0.7-1.7 [facility] Comment on above: Performed By: #### C BC, EBS A1C, CMP wRFX A1C #### [facility] [address] [place] [address] [place] #### KAPPA, SPE #### [facility] , ALP [Catalytic activity/Vol] 83 U/L Normal 34-104 [facility] Comment on above: Performed By: #### C BC, EBS A1C, CMP wRFX A1C #### [facility] [address] [place] [address] [place] #### KAPPA, SPE #### [facility] , ALT [Catalytic activity/Vol] 12 U/L Normal 7-52 [facility] Comment on above: Performed By: #### C BC, EBS A1C, CMP wRFX A1C #### [facility] [address] [place] [address] [place] #### KAPPA, SPE #### [facility] , Anion gap [Moles/Vol] 10.8 mmol/L Normal 6.0-15.0 [facility] Comment on above: Performed By: #### C BC, EBS A1C, CMP wRFX A1C #### [facility] [address] [place] [address] [place] #### KAPPA, SPE #### [facility] , AST [Catalytic activity/Vol] 14 U/L Normal 13-39 [facility] Comment on above: Performed By: #### C BC, EBS A1C, CMP wRFX A1C #### [facility] [address] [place] [address] [place] #### KAPPA, SPE #### [facility] , Bilirubin [Mass/Vol] 0.4 mg/dL Normal 0.3-1.0 [facility] Comment on above: Performed By: #### C BC, EBS A1C, CMP wRFX A1C #### [facility] [address] [place] [address] [place] #### KAPPA, SPE #### [facility] , Calcium [Mass/Vol] 8.5 mg/dL Low 8.6-10.3 [facility] Comment on above: Performed By: #### C BC, EBS A1C, CMP wRFX A1C #### [facility] [address] [place] [address] [place] #### KAPPA, SPE #### [facility] , Chloride [Moles/Vol] 111 mmol/L High 98-107 [facility] Comment on above: Performed By: #### C BC, EBS A1C, CMP wRFX A1C #### [facility] [address] [place] [address] [place] #### KAPPA, SPE #### [facility] , CO2 [Moles/Vol] 22.7 mmol/L Normal 21.0-31.0 [facility] Comment on above: Performed By: #### C BC, EBS A1C, CMP wRFX A1C #### [facility] [address] [place] [address] [place] #### KAPPA, SPE #### [facility] , Creatinine [Mass/Vol] 2.50 mg/dL High 0.60-1.20 [facility] Comment on above: Performed By: #### C BC, EBS A1C, CMP wRFX A1C #### [facility] [address] [place] [address] #### KAPPA, SPE #### [facility] , Creatinine Clr Calc Pharmacy 19.74 [facility] Comment on above: Result Comment: PERF ORMED BY: [place] [address] PATHOLOGIST CCIE LUIS DEE M.D. Performed By: #### C BC, EBS A1C, CMP wRFX A1C #### [facility] [address] [place] [address] [place] #### KAPPA, SPE #### [facility] , GFR/1.73 sq M.predicted MDRD (S/P/Bld) [Vol rate/Area] 18.848 mL/min/{1.73_m2} [facility] Comment on above: Performed By: #### C BC, EBS A1C, CMP wRFX A1C #### [facility] [address] [place] [address] [place] #### KAPPA, SPE #### [facility] , Globulin (S) [Mass/Vol] 2.7 g/dL Normal 2.2-3.9 [facility] Comment on above: Performed By: #### C BC, EBS A1C, CMP wRFX A1C #### [facility] [address] [place] [address] [place] #### KAPPA, SPE #### [facility] , Glucose [Mass/Vol] 119 mg/dL High 70-100 [facility] Comment on above: Result Comment: ADA recommended reference range Performed By: #### C BC, EBS A1C, CMP wRFX A1C #### [place] [address] [place] #### KAPPA, SPE #### [facility] , Potassium [Moles/Vol] 4.5 mmol/L Normal 3.5-5.1 [facility] Comment on above: Performed By: #### C BC, EBS A1C, CMP wRFX A1C #### [place] [address] [place] #### KAPPA, SPE #### [facility] , Protein [Mass/Vol] 6.3 g/dL Low 6.4-8.9 [facility] Comment on above: Performed By: #### C BC, EBS A1C, CMP wRFX A1C #### [place] [address] [place] #### KAPPA, SPE #### [facility] , Sodium [Moles/Vol] 140 mmol/L Normal 136-145 [facility] Comment on above: Performed By: #### C BC, EBS A1C, CMP wRFX A1C #### [facility] [address] [place] [address] [place] #### KAPPA, SPE #### [facility] , Urea nitrogen [Mass/Vol] 33 mg/dL High 7-25 [facility] Comment on above: Performed By: #### C BC, EBS A1C, CMP wRFX A1C #### [facility] [address] [place] [address] [place] #### KAPPA, SPE #### [facility] , Calcium [Mass/volume] in Ser um or PlasmaOrdered By: Misti Connolly on 07-12-2023 Calcium [Mass/Vol] 8.5 mg/dL 8.6-10.3 [facility] Carbon dioxide, total [Moles /volume] in Serum or PlasmaOrdered By: Misti Jeanpamela on 07-12-2023 CO2 [Moles/Vol] 22.7 mmol/L 21.0-31.0 [facility] Chloride [Moles/volume] in S amanda or PlasmaOrdered By: Misti Jeanpamela on 07-12-2023 Chloride [Moles/Vol] 111 mmol/L 98-107 [facility] Complete Blood Count Auto Di ffon 07-12-2023 Basophils (Bld) [#/Vol] 0.0 10*3/uL Normal 0.0-0.2 [facility] Comment on above: Result Comment: PERF ORMED BY: [place] [address] PATHOLOGIST CCIE LUIS DEE M.D. Performed By: #### C BC, EBS A1C, CMP wRFX A1C #### [facility] [address] [place] [address] #### KAPPA, SPE #### [facility] , Basophils/100 WBC (Bld) 0.4 % Normal . [facility] Comment on above: Performed By: #### C BC, EBS A1C, CMP wRFX A1C #### [facility] [address] [place] [address] [place] #### KAPPA, SPE #### [facility] , Eosinophils (Bld) [#/Vol] 0.1 10*3/uL Normal 0.0-0.45 [facility] Comment on above: Performed By: #### C BC, EBS A1C, CMP wRFX A1C #### [facility] [address] [place] [address] [place] #### KAPPA, SPE #### [facility] , Eosinophils/100 WBC (Bld) 1.1 % Normal . [facility] Comment on above: Performed By: #### C BC, EBS A1C, CMP wRFX A1C #### [facility] [address] [place] [address] [place] #### KAPPA, SPE #### [facility] , Erythrocyte distribution width (RBC) [Ratio] 13.8 % Normal 11.9-15.3 [facility] Comment on above: Performed By: #### C BC, EBS A1C, CMP wRFX A1C #### [facility] [address] [place] [address] [place] #### KAPPA, SPE #### [facility] , Hematocrit (Bld) [Volume fraction] 36.0 % Normal 34.0-46.4 [facility] Comment on above: Performed By: #### C BC, EBS A1C, CMP wRFX A1C #### [place] [address] [place] #### KAPPA, SPE #### [facility] , Hemoglobin (Bld) [Mass/Vol] 12.0 g/dL Normal 11.8-15.4 [facility] Comment on above: Performed By: #### C BC, EBS A1C, CMP wRFX A1C #### [facility] [address] [place] [address] [place] #### KAPPA, SPE #### [facility] , Lymphocytes (Bld) [#/Vol] 2.4 10*3/uL Normal 1.00-4.8 [facility] Comment on above: Performed By: #### C BC, EBS A1C, CMP wRFX A1C #### [facility] [address] [place] [address] [place] #### KAPPA, SPE #### [facility] , Lymphocytes/100 WBC (Bld) 33.7 % Normal . [facility] Comment on above: Performed By: #### C BC, EBS A1C, CMP wRFX A1C #### [facility] [address] [place] [address] [place] #### KAPPA, SPE #### [facility] , MCH (RBC) [Entitic mass] 31.5 pg Normal 24.7-34.3 [facility] Comment on above: Performed By: #### C BC, EBS A1C, CMP wRFX A1C #### [facility] [address] [place] [address] [place] #### KAPPA, SPE #### [facility] , MCV (RBC) [Entitic vol] 95.0 fL Normal 80-100 [facility] Comment on above: Performed By: #### C BC, EBS A1C, CMP wRFX A1C #### [address] #### KAPPA, SPE #### [facility] , Mean Corpuscular HGB Conc 33.2 g/dL Normal 32.0-35.0 [facility] Comment on above: Performed By: #### C BC, EBS A1C, CMP wRFX A1C #### [facility] [address] [place] [address] #### KAPPA, SPE #### [facility] , Monocytes (Bld) [#/Vol] 0.5 10*3/uL Normal 0.0-0.8 [facility] Comment on above: Performed By: #### C BC, EBS A1C, CMP wRFX A1C #### [facility] [address] [place] [address] [place] #### KAPPA, SPE #### [facility] , Monocytes/100 WBC (Bld) 6.2 % Normal . [facility] Comment on above: Performed By: #### C BC, EBS A1C, CMP wRFX A1C #### [facility] [address] [place] [address] [place] #### KAPPA, SPE #### [facility] , Neutrophils (Bld) [#/Vol] 4.3 10*3/uL Normal 1.8-7.7 [facility] Comment on above: Performed By: #### C BC, EBS A1C, CMP wRFX A1C #### [facility] [address] [place] [address] [place] #### KAPPA, SPE #### [facility] , Neutrophils/100 WBC (Bld) 58.6 % Normal . [facility] Comment on above: Performed By: #### C BC, EBS A1C, CMP wRFX A1C #### [facility] [address] [place] [address] [place] #### KAPPA, SPE #### [facility] , NRBC% 0.1 /100{WBC} Normal 0-0.5 [facility] Comment on above: Performed By: #### C BC, EBS A1C, CMP wRFX A1C #### [place] [address] [place] #### KAPPA, SPE #### [facility] , Platelet mean volume (Bld) [Entitic vol] 9.5 fL Normal 6.3-10.7 [facility] Comment on above: Performed By: #### C BC, EBS A1C, CMP wRFX A1C #### [place] [address] [place] #### KAPPA, SPE #### [facility] , Platelets (Bld) [#/Vol] 198 10*3/uL Normal 150-450 [facility] Comment on above: Performed By: #### C BC, EBS A1C, CMP wRFX A1C #### [facility] [address] [place] [address] [place] #### KAPPA, SPE #### [facility] , RBC (Bld) [#/Vol] 3.79 10*6/uL Normal 3.60-5.00 [facility] Comment on above: Performed By: #### C BC, EBS A1C, CMP wRFX A1C #### [facility] [address] [place] [address] [place] #### KAPPA, SPE #### [facility] , WBC (Bld) [#/Vol] 7.3 10*3/uL Normal 3.8-11.6 [facility] Comment on above: Performed By: #### C BC, EBS A1C, CMP wRFX A1C #### [facility] [address] [place] [address] [place] #### KAPPA, SPE #### [facility] , Creatinine [Mass/volume] in Serum or PlasmaOrdered By: Misti Connolly on 07-12-2023 Creatinine [Mass/Vol] 2.50 mg/dL 0.60-1.20 [facility] EBS A1C with Estimated Avamanda hutchinsn 07-12-2023 Glucose [Mass/Vol] 174 mg/dL Normal [facility] Comment on above: Result Comment: PERF ORMED BY: [place] [address] PATHOLOGIST CCIE LUIS DEE M.D. Performed By: #### C BC, EBS A1C, CMP wRFX A1C #### [address] #### KAPPA, SPE #### [facility] , HbA1c (Bld) [Mass fraction] 7.7 % High 4.3-5.6 [facility] Comment on above: Result Comment: Incr eased risk for diabetes: 5.7 - 6.4 diabetes: >6.4 glycemic control for adults with diabetes: <7.0 Performed By: #### C BC, EBS A1C, CMP wRFX A1C #### [facility] [address] [place] [address] [place] #### KAPPA, SPE #### [facility] , Eosinophils Auto (Bld) [#/Vo l]Ordered By: Misti Connolly on 07-12-2023 Eosinophils (Bld) [#/Vol] 0.1 10*3/uL 0.0-0.45 [facility] Eosinophils/100 WBC Auto (Bl d)Ordered By: Misti Connolly on 07-12-2023 Eosinophils/100 WBC (Bld) 1.1 % . [facility] Erythrocyte distribution wid th Auto (RBC) [Ratio]Ordered By: Misti Connolly on 07-12-2023 Erythrocyte distribution width (RBC) [Ratio] 13.8 % 11.9-15.3 [facility] Free K+L LT Chains, Qn, Son 07-12-2023 Free [place] Light Chains, S 40.5 mg/L High 3.3-19.4 [facility] Comment on above: Performed By: #### C BC, EBS A1C, CMP wRFX A1C #### [facility] [address] [place] [address] #### KAPPA, SPE #### [facility] , Free [place] Light Chains, S 23.2 mg/L Normal 5.7-26.3 [facility] Comment on above: Performed By: #### C BC, EBS A1C, CMP wRFX A1C #### [facility] [address] [place] [address] #### KAPPA, SPE #### [facility] , [place]/Lambda Ratio, S 1.75 High 0.26-1.65 [facility] Comment on above: Result Comment: Perf ormed at: CB - [facility] [address] [id number] Emergency Medicine Medical Director: Elpidio Delgado PhD, Phone: [phone] PERFORMED BY: [place] [address] PATHOLOGIST CCIE LUIS DEE M.D. Performed By: #### C BC, EBS A1C, CMP wRFX A1C #### [facility] [address] [place] [address] [place] #### KAPPA, SPE #### [facility] , Glucose [Mass/volume] in Ser um or PlasmaOrdered By: Misti Connolly on 07-12-2023 Glucose [Mass/Vol] 119 mg/dL 70-100 [facility] Comment on above: ADA recommended refe rence range Glucose mean value [Mass/vol ume] in Blood Estimated from glycated hemoglobinOrdered By: Misti Jeanpamela on 07-12-2023 Average glucose Estimated from glycated hemoglobin (Bld) [Mass/Vol] 174 mg/dL [facility] Hematocrit Auto (Bld) [Volum e fraction]Ordered By: Misti Mohsen on 07-12-2023 Hematocrit (Bld) [Volume fraction] 36.0 % 34.0-46.4 [facility] Hemoglobin [Mass/volume] in BloodOrdered By: Misti Jeanpamela on 07-12-2023 Hemoglobin (Bld) [Mass/Vol] 12.0 g/dL 11.8-15.4 [facility] Immunoglobulin light chains. kappa.free [Mass/volume] in SerumOrdered By: Misti Mohsen on 07-12-2023 Immunoglobulin light chains.kappa.free (S) [Mass/Vol] 40.5 mg/L 3.3-19.4 [facility] Immunoglobulin light chains. kappa.free/Immunoglobulin light chains.lambda.free [MassOrdered By: Misti Mohsen on 07-12-2023 Immunoglobulin light chains.kappa.free/Immunog lobulin light chains.lambda.free (S) [Mass ratio] 1.75 0.26-1.65 [facility] Comment on above: Performed at: [place] [id number] Director: Elpidio Delgado PhD, Phone: [phone] Immunoglobulin light chains. lambda.free [Mass/volume] in Serum or PlasmaOrdered By: Misti Mohsen on 07-12-2023 Immunoglobulin light chains.lambda.free [Mass/Vol] 23.2 mg/L 5.7-26.3 [facility] Laboratory - Hematology and Cell countsOrdered By: Misti Jeanpamela on 07-12-2023 HbA1c (Bld) [Mass fraction] 7.7 % 4.3-5.6 [facility] Comment on above: Increased risk for d iabetes: 5.7 - 6.4diabetes: >6.4glycemic control for adults with diabetes: <7.0 Leukocytes [#/volume] correc dominick for nucleated erythrocytes in Blood by Automated counOrdered By: Misti Connolly on 07-12-2023 WBC corrected for nucl RBC Auto (Bld) [#/Vol] 7.3 10*3/uL 3.8-11.6 [facility] Lymphocytes Auto (Bld) [#/Vo l]Ordered By: Misti Connolly on 07-12-2023 Lymphocytes (Bld) [#/Vol] 2.4 10*3/uL 1.00-4.8 [facility] Lymphocytes/100 WBC Auto (Bl d)Ordered By: Misti Connolly on 07-12-2023 Lymphocytes/100 WBC (Bld) 33.7 % . [facility] MCH Auto (RBC) [Entitic mass ]Ordered By: Misti Connolly on 07-12-2023 MCH (RBC) [Entitic mass] 31.5 pg 24.7-34.3 [facility] MCHC Auto (RBC) [Mass/Vol]Or dered By: Misti Connolly on 07-12-2023 MCHC (RBC) [Mass/Vol] 33.2 g/dL 32.0-35.0 [facility] MCV Auto (RBC) [Entitic vol] Ordered By: Misti Connolly on 07-12-2023 MCV (RBC) [Entitic vol] 95.0 fL 80-100 [facility] Monocytes Auto (Bld) [#/Vol] Ordered By: Misti Connolly on 07-12-2023 Monocytes (Bld) [#/Vol] 0.5 10*3/uL 0.0-0.8 [facility] Monocytes/100 WBC Auto (Bld) Ordered By: Misti Connolly on 07-12-2023 Monocytes/100 WBC (Bld) 6.2 % . [facility] Neutrophils Auto (Bld) [#/Vo l]Ordered By: Misti Connolly on 07-12-2023 Neutrophils (Bld) [#/Vol] 4.3 10*3/uL 1.8-7.7 [facility] Neutrophils/100 WBC Auto (Bl d)Ordered By: Misti Connolly on 07-12-2023 Neutrophils/100 WBC (Bld) 58.6 % . [facility] No Panel InformationOrdered By: Misti Connolly on 07-12-2023 Estimated GFR (CKD-EPI) 18.848 mL/Min [facility] Pharmacy Creatinine Clearance (Chem 19.74 [facility] Protein Electrophoresis M-Krystian Not observed g/dL Not Observed [facility] Protein Electrophoresis Note See comment . [facility] Comment on above: Protein electrophore sis scan will follow via computer,mail, or mule driver delivery.Performed at: [facility] [place] [id number] Director: Elpidio Delgado PhD, Phone: [phone] Nucleated erythrocytes [Pres ence] in Blood by Automated countOrdered By: Misti Jeanpamela on 07-12-2023 Nucleated RBC Auto Ql (Bld) 0.1 /100{WBC} 0-0.5 [facility] Platelet mean volume Auto (B ld) [Entitic vol]Ordered By: Misti Mohsen on 07-12-2023 Platelet mean volume (Bld) [Entitic vol] 9.5 fL 6.3-10.7 [facility] Platelets Auto (Bld) [#/Vol] Ordered By: Misti Mohsen on 07-12-2023 Platelets (Bld) [#/Vol] 198 10*3/uL 150-450 [facility] Potassium [Moles/volume] in Serum or PlasmaOrdered By: Misti Mohsen on 07-12-2023 Potassium [Moles/Vol] 4.5 mmol/L 3.5-5.1 [facility] Protein Electrophoresis, Ser umon 07-12-2023 Albumin [Mass/Vol] 3.5 g/dL Normal 2.9-4.4 [facility] Comment on above: Performed By: #### C BC, EBS A1C, CMP wRFX A1C #### [facility] [address] [place] [address] [place] #### KAPPA, SPE #### [facility] , Ranmw-6-Fnbedohs 0.1 g/dL Normal 0.0-0.4 [facility] Comment on above: Performed By: #### C BC, EBS A1C, CMP wRFX A1C #### [facility] [address] [place] [address] [place] #### KAPPA, SPE #### [facility] , Wwwve-9-Elddwrrq 1.0 g/dL Normal 0.4-1.0 [facility] Comment on above: Performed By: #### C BC, EBS A1C, CMP wRFX A1C #### [facility] [address] [place] [address] [place] #### KAPPA, SPE #### [facility] , Beta Globulin 0.9 g/dL Normal 0.7-1.3 [facility] Comment on above: Performed By: #### C BC, EBS A1C, CMP wRFX A1C #### [address] #### KAPPA, SPE #### [facility] , Gamma Globulin 0.6 g/dL Normal 0.4-1.8 [facility] Comment on above: Performed By: #### C BC, EBS A1C, CMP wRFX A1C #### [place] [address] [place] #### KAPPA, SPE #### [facility] , M-Krystian Not Observed Normal Not Observed [facility] Comment on above: Performed By: #### C BC, EBS A1C, CMP wRFX A1C #### [place] [address] [place] #### KAPPA, SPE #### [facility] , Protein [Mass/Vol] 6.2 g/dL Normal 6.0-8.5 [facility] Comment on above: Performed By: #### C BC, EBS A1C, CMP wRFX A1C #### [place] [address] [place] #### KAPPA, SPE #### [facility] , SPE-Note Normal . [facility] Comment on above: Result Comment: Prot ein electrophoresis scan will follow via computer, mail, or mule driver delivery. Performed at: - [facility] [address] [id number] Emergency Medicine Medical Director: Elpidio Delgado PhD, Phone: [phone] Performed By: #### C BC, EBS A1C, CMP wRFX A1C #### [facility] [address] [place] [address] [place] #### KAPPA, SPE #### [facility] , Protein [Mass/volume] in Ser um or PlasmaOrdered By: Misti Connolly on 07-12-2023 Protein [Mass/Vol] 6.3 g/dL 6.4-8.9 [facility] Protein [Mass/Vol] 6.2 g/dL 6.0-8.5 [facility] RBC Auto (Bld) [#/Vol]Ordere d By: Misti Connolly on 07-12-2023 RBC (Bld) [#/Vol] 3.79 10*6/uL 3.60-5.00 [facility] Serum globulin measurement b y calculation (mass/volume)Ordered By: Misti Connolly on 07-12-2023 Globulin (S) [Mass/Vol] 2.7 g/dL 2.2-3.9 [facility] Serum or plasma albumin/glob ulin mass ratioOrdered By: Misti Connolly on 07-12-2023 Albumin/Globulin [Mass ratio] 1.3 {ratio} 0.7-1.7 [facility] Serum or plasma alpha 1 glob ulin measurement by electrophoresis (mass/volume)Ordered By: Misti Connolly on 07-12-2023 Alpha 1 globulin Elph [Mass/Vol] 0.1 g/dL 0.0-0.4 [facility] Serum or plasma alpha 2 glob ulin measurement by electrophoresis (mass/volume)Ordered By: Misti Connolly on 07-12-2023 Alpha 2 globulin Elph [Mass/Vol] 1.0 g/dL 0.4-1.0 [facility] Serum or plasma anion gap de terminationOrdered By: Misti Connolly on 07-12-2023 Anion gap [Moles/Vol] 10.8 mmol/L 6.0-15.0 [facility] Serum or plasma beta globuli n measurement by electrophoresis (mass/volume)Ordered By: Misti Mohsen on 07-12-2023 Beta globulin Elph [Mass/Vol] 0.9 g/dL 0.7-1.3 [facility] Serum or plasma gamma globul in measurement by electrophoresis (mass/volume)Ordered By: Misti Mohsen on 07-12-2023 Gamma globulin Elph [Mass/Vol] 0.6 g/dL 0.4-1.8 [facility] Sodium [Moles/volume] in Ser um or PlasmaOrdered By: Misti Connolly on 07-12-2023 Sodium [Moles/Vol] 140 mmol/L 136-145 [facility] Urea nitrogen [Mass/volume] in Serum or PlasmaOrdered By: Misti Connolly on 07-12-2023 Urea nitrogen [Mass/Vol] 33 mg/dL 7-25 [facility] WBC Auto (Bld) [#/Vol]Ordere d By: Misti Mohsen on 07-12-2023 WBC (Bld) [#/Vol] 7.3 10*3/uL 3.8-11.6 [facility] CMP with reflex to A1Con Albumin [Mass/Vol] 3.8 g/dL Normal 3.5-5.7 [facility] Comment on above: Performed By: #### C BC, EBS A1C, CMP wRFX A1C #### [facility] [address] [place] [address] [place] #### KAPPA, SPE #### [facility] , Albumin/Globulin [Mass ratio] 1.5 {ratio} Normal [facility] Comment on above: Performed By: #### C BC, EBS A1C, CMP wRFX A1C #### [facility] [address] [place] [address] [place] #### KAPPA, SPE #### [facility] , ALP [Catalytic activity/Vol] 104 U/L Normal 34-104 [facility] Comment on above: Performed By: #### C BC, EBS A1C, CMP wRFX A1C #### [facility] [address] [place] [address] [place] #### KAPPA, SPE #### [facility] , ALT [Catalytic activity/Vol] 10 U/L Normal 7-52 [facility] Comment on above: Performed By: #### C BC, EBS A1C, CMP wRFX A1C #### [facility] [address] [place] [address] [place] #### KAPPA, SPE #### [facility] , Anion gap [Moles/Vol] 11.3 mmol/L Normal 6.0-15.0 [facility] Comment on above: Performed By: #### C BC, EBS A1C, CMP wRFX A1C #### [facility] [address] [place] [address] [place] #### KAPPA, SPE #### [facility] , AST [Catalytic activity/Vol] 14 U/L Normal 13-39 [facility] Comment on above: Performed By: #### C BC, EBS A1C, CMP wRFX A1C #### [facility] [address] [place] [address] [place] #### KAPPA, SPE #### [facility] , Bilirubin [Mass/Vol] 0.4 mg/dL Normal 0.3-1.0 [facility] Comment on above: Performed By: #### C BC, EBS A1C, CMP wRFX A1C #### [facility] [address] [place] [address] [place] #### KAPPA, SPE #### [facility] , Calcium [Mass/Vol] 8.3 mg/dL Low 8.6-10.3 [facility] Comment on above: Performed By: #### C BC, EBS A1C, CMP wRFX A1C #### [facility] [address] [place] [address] [place] #### KAPPA, SPE #### [facility] , Chloride [Moles/Vol] 109 mmol/L High 98-107 [facility] Comment on above: Performed By: #### C BC, EBS A1C, CMP wRFX A1C #### [facility] [address] [place] [address] [place] #### KAPPA, SPE #### [facility] , CO2 [Moles/Vol] 21.5 mmol/L Normal 21.0-31.0 [facility] Comment on above: Performed By: #### C BC, EBS A1C, CMP wRFX A1C #### [facility] [address] [place] [address] [place] #### KAPPA, SPE #### [facility] , Creatinine [Mass/Vol] 2.38 mg/dL High 0.60-1.20 [facility] Comment on above: Performed By: #### C BC, EBS A1C, CMP wRFX A1C #### [facility] [address] [place] [address] [place] #### KAPPA, SPE #### [facility] , Creatinine Clr Calc Pharmacy 21.09 [facility] Comment on above: Result Comment: PERF ORMED BY: [place] [address] PATHOLOGIST CCIE LUIS DEE M.D. Performed By: #### C BC, EBS A1C, CMP wRFX A1C #### [facility] [address] [place] [address] [place] #### KAPPA, SPE #### [facility] , GFR/1.73 sq M.predicted MDRD (S/P/Bld) [Vol rate/Area] 20.119 mL/min/{1.73_m2} [facility] Comment on above: Performed By: #### C BC, EBS A1C, CMP wRFX A1C #### [facility] [address] [place] [address] [place] #### KAPPA, SPE #### [facility] , Globulin (S) [Mass/Vol] 2.6 g/dL Normal [facility] Comment on above: Performed By: #### C BC, EBS A1C, CMP wRFX A1C #### [facility] [address] [place] [address] [place] #### KAPPA, SPE #### [facility] , Glucose [Mass/Vol] 114 mg/dL High 70-100 [facility] Comment on above: Result Comment: ADA recommended reference range Performed By: #### C BC, EBS A1C, CMP wRFX A1C #### [facility] [address] [place] [address] [place] #### KAPPA, SPE #### [facility] , Potassium [Moles/Vol] 4.8 mmol/L Normal 3.5-5.1 [facility] Comment on above: Performed By: #### C BC, EBS A1C, CMP wRFX A1C #### [facility] [address] [place] [address] [place] #### KAPPA, SPE #### [facility] , Protein [Mass/Vol] 6.4 g/dL Normal 6.4-8.9 [facility] Comment on above: Performed By: #### C BC, EBS A1C, CMP wRFX A1C #### [place] [address] [place] #### KAPPA, SPE #### [facility] , Sodium [Moles/Vol] 137 mmol/L Normal 136-145 [facility] Comment on above: Performed By: #### C BC, EBS A1C, CMP wRFX A1C #### [facility] [address] [place] [address] [place] #### KAPPA, SPE #### [facility] , Urea nitrogen [Mass/Vol] 32 mg/dL High 7-25 [facility] Comment on above: Performed By: #### C BC, EBS A1C, CMP wRFX A1C #### [place] [address] [place] #### KAPPA, SPE #### [facility] , Complete Blood Count Auto Di ffon 03-23-2023 Basophils (Bld) [#/Vol] 0.1 10*3/uL Normal 0.0-0.2 [facility] Comment on above: Result Comment: PERF ORMED BY: [address] [place] [address] PATHOLOGIST CCIE LUIS DEE M.D. Performed By: #### C BC, EBS A1C, CMP wRFX A1C #### [address] #### KAPPA, SPE #### [facility] , Basophils/100 WBC (Bld) 0.6 % Normal . [facility] Comment on above: Performed By: #### C BC, EBS A1C, CMP wRFX A1C #### [place] [address] [place] #### KAPPA, SPE #### [facility] , Eosinophils (Bld) [#/Vol] 0.1 10*3/uL Normal 0.0-0.45 [facility] Comment on above: Performed By: #### C BC, EBS A1C, CMP wRFX A1C #### [address] #### KAPPA, SPE #### [facility] , Eosinophils/100 WBC (Bld) 1.4 % Normal . [facility] Comment on above: Performed By: #### C BC, EBS A1C, CMP wRFX A1C #### [place] [address] [place] #### KAPPA, SPE #### [facility] , Erythrocyte distribution width (RBC) [Ratio] 13.5 % Normal 11.9-15.3 [facility] Comment on above: Performed By: #### C BC, EBS A1C, CMP wRFX A1C #### [place] [address] [place] #### KAPPA, SPE #### [facility] , Hematocrit (Bld) [Volume fraction] 37.4 % Normal 34.0-46.4 [facility] Comment on above: Performed By: #### C BC, EBS A1C, CMP wRFX A1C #### [place] [address] [place] #### KAPPA, SPE #### [facility] , Hemoglobin (Bld) [Mass/Vol] 12.3 g/dL Normal 11.8-15.4 [facility] Comment on above: Performed By: #### C BC, EBS A1C, CMP wRFX A1C #### [address] #### KAPPA, SPE #### [facility] , Lymphocytes (Bld) [#/Vol] 2.5 10*3/uL Normal 1.00-4.8 [facility] Comment on above: Performed By: #### C BC, EBS A1C, CMP wRFX A1C #### [place] [address] [place] #### KAPPA, SPE #### [facility] , Lymphocytes/100 WBC (Bld) 30.3 % Normal . [facility] Comment on above: Performed By: #### C BC, EBS A1C, CMP wRFX A1C #### [place] [address] [place] #### KAPPA, SPE #### [facility] , MCH (RBC) [Entitic mass] 30.8 pg Normal 24.7-34.3 [facility] Comment on above: Performed By: #### C BC, EBS A1C, CMP wRFX A1C #### [place] [address] [place] #### KAPPA, SPE #### [facility] , MCV (RBC) [Entitic vol] 93.9 fL Normal 80-100 [facility] Comment on above: Performed By: #### C BC, EBS A1C, CMP wRFX A1C #### [facility] [address] [place] [address] [place] #### KAPPA, SPE #### [facility] , Mean Corpuscular HGB Conc 32.7 g/dL Normal 32.0-35.0 [facility] Comment on above: Performed By: #### C BC, EBS A1C, CMP wRFX A1C #### [facility] [address] [place] [address] [place] #### KAPPA, SPE #### [facility] , Monocytes (Bld) [#/Vol] 0.6 10*3/uL Normal 0.0-0.8 [facility] Comment on above: Performed By: #### C BC, EBS A1C, CMP wRFX A1C #### [facility] [address] [place] [address] [place] #### KAPPA, SPE #### [facility] , Monocytes/100 WBC (Bld) 7.1 % Normal . [facility] Comment on above: Performed By: #### C BC, EBS A1C, CMP wRFX A1C #### [facility] [address] [place] [address] [place] #### KAPPA, SPE #### [facility] , Neutrophils (Bld) [#/Vol] 4.9 10*3/uL Normal 1.8-7.7 [facility] Comment on above: Performed By: #### C BC, EBS A1C, CMP wRFX A1C #### [facility] [address] [place] [address] [place] #### KAPPA, SPE #### [facility] , Neutrophils/100 WBC (Bld) 60.6 % Normal . [facility] Comment on above: Performed By: #### C BC, EBS A1C, CMP wRFX A1C #### [facility] [address] [place] [address] [place] #### KAPPA, SPE #### [facility] , NRBC% 0.1 /100{WBC} Normal 0-0.5 [facility] Comment on above: Performed By: #### C BC, EBS A1C, CMP wRFX A1C #### [facility] [address] [place] [address] [place] #### KAPPA, SPE #### [facility] , Platelet mean volume (Bld) [Entitic vol] 9.5 fL Normal 6.3-10.7 [facility] Comment on above: Performed By: #### C BC, EBS A1C, CMP wRFX A1C #### [facility] [address] [place] [address] #### KAPPA, SPE #### [facility] , Platelets (Bld) [#/Vol] 199 10*3/uL Normal 150-450 [facility] Comment on above: Performed By: #### C BC, EBS A1C, CMP wRFX A1C #### [facility] [address] [place] [address] [place] #### KAPPA, SPE #### [facility] , RBC (Bld) [#/Vol] 3.98 10*6/uL Normal 3.60-5.00 [facility] Comment on above: Performed By: #### C BC, EBS A1C, CMP wRFX A1C #### [facility] [address] [place] [address] [place] #### KAPPA, SPE #### [facility] , WBC (Bld) [#/Vol] 8.1 10*3/uL Normal 3.8-11.6 [facility] Comment on above: Performed By: #### C BC, EBS A1C, CMP wRFX A1C #### [facility] [address] [place] [address] [place] #### KAPPA, SPE #### [facility] , EBS A1C with Estimated Ave G luon 03-23-2023 Glucose [Mass/Vol] 174 mg/dL Normal [facility] Comment on above: Result Comment: PERF ORMED BY: [place] [address] PATHOLOGIST CCIE LUIS DEE M.D. Performed By: #### C BC, EBS A1C, CMP wRFX A1C #### [facility] [address] [place] [address] [place] #### KAPPA, SPE #### [facility] , HbA1c (Bld) [Mass fraction] 7.7 % High 4.3-5.6 [facility] Comment on above: Result Comment: Incr eased risk for diabetes: 5.7 - 6.4 diabetes: >6.4 glycemic control for adults with diabetes: <7.0 Performed By: #### C BC, EBS A1C, CMP wRFX A1C #### [facility] [address] [place] [address] [place] #### KAPPA, SPE #### [facility] , Free K+L LT Chains, Qn, Son 03-23-2023 Free [place] Light Chains, S 32.6 mg/L High 3.3-19.4 [facility] Comment on above: Performed By: #### C BC, EBS A1C, CMP wRFX A1C #### [facility] [address] [place] [address] [place] #### KAPPA, SPE #### [facility] , Free [place] Light Chains, S 19.3 mg/L Normal 5.7-26.3 [facility] Comment on above: Performed By: #### C BC, EBS A1C, CMP wRFX A1C #### [facility] [address] [place] [address] [place] #### KAPPA, SPE #### [facility] , [place]/Lambda Ratio, S 1.69 High 0.26-1.65 [facility] Comment on above: Result Comment: Perf ormed at: - [facility] [address] [id number] Emergency Medicine Medical Director: Elpidio Delgado PhD, Phone: [phone] PERFORMED BY: [address] [place] [address] PATHOLOGIST CCIE LUIS DEE M.D. 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.71) (I77.810) HTN (hypertension) (401.9) (I10) Hyperlipemia (272.4) (E78.5) Never a smoker Aortic valve regurgitation, nonrheumatic (424.1) (I35.1) Diabetes mellitus (250.00) (E11.9) Pulmonary hypertension (416.8) (I27.20) Multiple myeloma (203.00) (C90.00) Anticoagulated (V58.61) (Z79.01) Class 1 obesity with body mass index (BMI) of 31.0 to 31.9 in adult (278.00,V85.31) (E66.9,Z68.31) Chronic kidney disease, stage 3 (585.3) (N18.30) Orders Class 1 obesity with body mass index (BMI) of 31.0 to 31.9 in adult Healthy Weight Tips; Status:Complete - Retrospective Authorization; Done: [id number] Some eating tips that can help you lose weight.; Status:Complete - Retrospective Authorization; Done: [id number] SocHx: Never a smoker Tobacco Use Screening; Status:Complete; Done: [id number] Patient Instructions Please bring all medicines, vitamins, and herbal supplements with you when you come to the office. Prescriptions will not be filled unless you are compliant with your follow up appointments or have a follow up appointment scheduled as per instruction of your physician. Refills should be requested at the time of your visit. Follow up in [6 ] months + EKG Chief Complaint HAILEE TRIVEDI is being seen for a 6 month follow-up of. History of Present Illness Patient here for follow-up continue atrial fibrillation, hypertension, hyperlipidemia and chronic disease. I saw her she denies any complaint of chest pain, palpitation lightheadedness or syncope. She remains active. Her only complaint is symptoms of fatigue and tiredness with her recent lab work noted. Her blood pressures been running on the low range ASSESSMENT: 1. Persistent atrial fibrillation. Currently in normal sinus rhythm. Currently on Xarelto with appropriate dose based on renal function 2. Remote evaluation for chest pain, resolved. No recurrence. She did have noninvasive assessment at [facility], which was negative. Couple of years ago. No further recurrence she had 1 episode recently and I did advise her to have a repeat stress test but she elected to defer that 3. Hypertension, controlled. Blood pressure in normal range 4. Hyperlipidemia, on atorvastatin and fish oil. Controlled recent lab noted and reviewed 5. Chronic kidney disease. stage of 3 achieving stage IV 6. Multiple myeloma. Patient report in remission 7. Prior presentation with cerebellar infarct. Currently on aspirin and Xarelto and followed by neurology 8. Moderate aortic regurgitation based on echocardiogram 9. Moderate obesity 10.There had been some notation in the chart that she had dilated aortic root. She could not be confirmed on a CT scan previously. She does have an echocardiogram that failed to demonstrate significant aortic root dilatation. Plan 1. Patient appears to be an appropriate therapy . Renal function seems to preclude the use of MARK inhibitor's or ARB 2. Considering her blood pressure running in the lower range and I discussed with the equal discontinued 3. The patient was counseled regarding losing weight, exercise and dietary modification 4. Risk, benefit and alternative anticoagulation reviewed with patient unkempt she understood and agreed. 5. We will see her back in the office in 9 months and plan to repeat her lab work prior to next office visit 6. Patient advised to notify of change in cardiac status or symptoms Current Meds Medication NameInstruction Acyclovir 400 MG Oral TabletTAKE 1 TABLET TWICE DAILY. amLODIPine Besylate 2.5 MG Oral TabletTAKE 1 TABLET DAILY. Aspirin EC 81 MG TBECTAKE 1 TABLET DAILY. Atorvastatin Calcium 40 MG Oral TabletTAKE 1 TABLET DAILY. Carvedilol 12.5 MG Oral TabletTake 1 tablet twice a day Fish Oil 1000 MG Oral CapsuleTake 1 capsule twice daily Oracit 490-640 MG/5ML Oral SolutionUSE DIRECTED. Reli-On Insulin SyringeUSE DIRECTED. Sodium Bicarbonate 325 MG Oral TabletTake 1 tablet twice daily Vitamin B12 1000 MCG Oral Tablet Extended ReleaseTAKE 1 TABLET EVERY OTHER DAY Vitamin D3 25 MCG (1000 UT) Oral TabletTAKE 1 TABLET DAILY. Xarelto 15 MG Oral TabletTake 1 tablet daily Allergies Medication oxybutynin Adverse Reaction; Hives; Rash; Recorded By: Dianelys Park; 07/27/2021 3:19:43 PM Social History Problems Daily caffeine consumption, 2-3 servings a day Never a smoker No alcohol use No illicit drug use Review of Systems Constitutional: feeling tired. Cardiovascular: no intermittent leg claudication and as noted in HPI. Respiratory: no cough and no shortness of breath. Gastrointestinal: no change in bowel habits and no blood in stools. Integumentary: no skin rashes. Neurological: no seizures and no frequent falls. All other systems have been reviewed and are negative for complaint. Vitals Vital (more content not included)... Normal [facility] Protein Electrophoresis, Ser [facility] 03-23-2023 Albumin [Mass/Vol] 3.4 g/dL Normal 2.9-4.4 [facility] Comment on above: Performed By: #### C BC, EBS A1C, CMP wRFX A1C #### [place] [address] [place] #### KAPPA, SPE #### [facility] , Albumin/Globulin [Mass ratio] 1.3 {ratio} Normal 0.7-1.7 [facility] Comment on above: Performed By: #### C BC, EBS A1C, CMP wRFX A1C #### [facility] [address] [place] [address] [place] #### KAPPA, SPE #### [facility] , Dmcov-1-Jjtahmfz 0.1 g/dL Normal 0.0-0.4 [facility] Comment on above: Performed By: #### C BC, EBS A1C, CMP wRFX A1C #### [facility] [address] [place] [address] [place] #### KAPPA, SPE #### [facility] , Jwqfc-2-Dlknbzjm 0.9 g/dL Normal 0.4-1.0 [facility] Comment on above: Performed By: #### C BC, EBS A1C, CMP wRFX A1C #### [place] [address] [place] #### KAPPA, SPE #### [facility] , Beta Globulin 0.8 g/dL Normal 0.7-1.3 [facility] Comment on above: Performed By: #### C BC, EBS A1C, CMP wRFX A1C #### [facility] [address] [place] [address] [place] #### KAPPA, SPE #### [facility] , Gamma Globulin 0.8 g/dL Normal 0.4-1.8 [facility] Comment on above: Performed By: #### C BC, EBS A1C, CMP wRFX A1C #### [address] #### KAPPA, SPE #### [facility] , Globulin (S) [Mass/Vol] 2.7 g/dL Normal 2.2-3.9 [facility] Comment on above: Performed By: #### C BC, EBS A1C, CMP wRFX A1C #### [facility] [address] [place] [address] [place] #### KAPPA, SPE #### [facility] , M-Krystian Not Observed Normal Not Observed [facility] Comment on above: Performed By: #### C BC, EBS A1C, CMP wRFX A1C #### [facility] [address] [place] [address] [place] #### KAPPA, SPE #### [facility] , Protein [Mass/Vol] 6.1 g/dL Normal 6.0-8.5 [facility] Comment on above: Performed By: #### C BC, EBS A1C, CMP wRFX A1C #### [facility] [address] [place] [address] [place] #### KAPPA, SPE #### [facility] , SPE-Note Normal . [facility] Comment on above: Result Comment: Prot ein electrophoresis scan will follow via computer, mail, or mule driver delivery. Performed at: [facility] [id number] Emergency Medicine Medical Director: Elpidio Delgado PhD, Phone: [phone] Performed By: #### C BC, EBS A1C, CMP wRFX A1C #### [facility] [address] [place] [address] [place] #### KAPPA, SPE #### [facility] , Tobacco Screening.on 023 Adult depression screening assessment No [facility] OggiFinogi 250 DO Work Phone: Fall risk assessment a) No falls within the last year [facility] OggiFinogi 250 DO Work Phone: Tobacco use status [facility]PH[facility] b) No M [facility] OggiFinogi 250 DO Work Phone: Operative Reporton 3 Operative Report [id number]:127 Normal [facility] LIPID PROFILEon 02-21-2023 CHOL-HDL RATIO NORM SEE BELOW Normal [facility] Comment on above: Result Comment: 3.3 - 4.4 LOW RISK 4.4 - 7.1 AVERAGE RISK 7.1 - 11.0 MODERATE RISK >11.0 HIGH RISK Performed By: #### H H #### [facility] [address] [address] [address] Richa Cheema Cholesterol [Mass/Vol] 173 mg/dL Normal <=200 [facility] Comment on above: Performed By: #### H H #### [facility] [address] [address] [address] Richa Cheema Cholesterol in HDL [Mass/Vol] 63 mg/dL Critically high 40-60 [facility] Comment on above: Performed By: #### H H #### [facility] [address] [address] [address] Richa Cheema Cholesterol in LDL [Mass/Vol] 75.6 mg/dL Normal [facility] Comment on above: Performed By: #### H H #### [facility] [address] [address] [address] Richa Cheema Cholesterol.total/Cholest tash in HDL [Mass ratio] 2.7 {ratio} Normal [facility] Comment on above: Performed By: #### H H #### [facility] [address] [address] [address] Richa Cheema HDL NORMAL > or = 60 mg/dl - LOW CARDIOVASCULAR RISK <40 mg/dl - HIGH CARDIOVASCULAR RISK Normal [facility] Comment on above: Performed By: #### H H #### [facility] [address] [place] [address] Dr. Richa Cheema LDL CALC NORMAL SEE BELOW Normal [facility] Comment on above: Result Comment: <100 mg/dl OPTIMAL 100 - 129 mg/dl NEAR OR ABOVE OPTIMAL 130 - 159 mg/dl BORDERLINE HIGH 160 - 189 mg/dl HIGH >190 mg/dl VERY HIGH Performed By: #### H H #### [facility] [address] [place] [address] Dr. Richa Cheema Triglyceride [Mass/Vol] 172 mg/dL Critically high <=150 [facility] Comment on above: Performed By: #### H H #### [facility] [address] [address] [address] Richa Cheema VLDL CALC 34.4 mg/dL Normal [facility] Comment on above: Performed By: #### H H #### [facility] [address] [address] [address] Rihca Cheema PROF CHEM 8 (BAS METB)on Anion gap [Moles/Vol] 13.2 mmol/L Normal [facility] Comment on above: Performed By: #### H H #### [facility] [address] [place] [address] Dr. Richa Cheema Calcium [Mass/Vol] 8.8 mg/dL Normal 8.5-10.1 [facility] Comment on above: Performed By: #### H H #### [facility] [address] [address] [address] Richa Cheema Chloride [Moles/Vol] 108 mmol/L Critically high 98-107 [facility] Comment on above: Performed By: #### H H #### [facility] [address] [place] [address] Dr. Richa Cheema CO2 [Moles/Vol] 25.7 mmol/L Normal 21.0-32.[address] [facility] Comment on above: Performed By: #### H H #### [facility] [address] [place] [address] Dr. Richa Cheema Creatinine [Mass/Vol] 2.30 mg/dL Critically high 0.55-1.02 [facility] Comment on above: Performed By: #### H H #### [facility] [address] [place] [address] Dr. Richa Cheema EGFR-AF BURUNDIAN 25 mL/min/1.73m2 Critically low >=60 [facility] Comment on above: Performed By: #### H H #### [facility] [address] [place] [address] Dr. Richa Cheema EGFR-NON AF B[place]UNDIAN 20 mL/min/1.73m2 Critically low >=60 [facility] Comment on above: Performed By: #### H H #### [facility] [address] [address] [address] Richa Cheema Glucose [Mass/Vol] 139 mg/dL Critically high 74-106 [facility] Comment on above: Performed By: #### H H #### [facility] [address] [address] [address] Richa Cheema Potassium [Moles/Vol] 4.9 mmol/L Normal 3.5-5.1 [facility] Comment on above: Performed By: #### H H #### [facility] [address] [place] [address] Dr. Richa Cheema Sodium [Moles/Vol] 142 mmol/L Normal 136-145 [facility] Comment on above: Performed By: #### H H #### [facility] [address] [place] [address] Dr. Richa Cheema Urea nitrogen [Mass/Vol] 25.0 mg/dL Critically high 7.0-18 .0 [facility] Comment on above: Performed By: #### H H #### [facility] [address] [place] [address] Dr. Richa Cheema Urea nitrogen/Creatinine [Mass ratio] 10.9 mg/mg Normal [facility] Comment on above: Performed By: #### H H #### [facility] [address] [place] [address] Dr. Richa Cheema [facility] 02-21-2023 AST [Catalytic activity/Vol] 18 U/L Normal 15-37 [facility] Comment on above: Performed By: #### H H #### [facility] [address] [place] [address] Dr. Richa Cheema [facility] 02-21-2023 ALT [Catalytic activity/Vol] 18 U/L Normal 14-59 [facility] Comment on above: Performed By: #### H H #### [facility] [address] [place] [address] Dr. Richa Cheema Consent for Procedure/Surger yon 02-04-2023 Consent for Procedure/Surgery [id number]:127 Normal [facility] Urine Cytology ([facility])on 0 01-17-2023 Urine Cytology Diagnosis Info Invalid Interpretation Code [facility] Comment on above: Result Comment: A:Ur ine,Urine:Voided Interpretation - MicroScopic Description - Adequacy - Gross Description Site ID:A color Light Yellow fixative Alcohol Specimen designated Urine received in alcohol preservative and labeled with the patient?s name, consists of 40ml cloudy light yellow fluid. Electronically signed by : on: 01/17/2023 08:07:07 Performed By: #### 1 [id number] #### [facility] [address] [place] [id number] [facility] - MIS [id number] Normal [facility] Ambulatory Visit Summaryon 0 01-10-2023 Ambulatory Visit Summary HAILEE TRIVEDI :1940 Visit Date:01/10/2023 Ambulatory Visit Instructions Your Diagnosis History of kidney stones Microhematuria Nocturia Glycosuria Incomplete bladder emptying Tests Performed Urnls Dip Stick Auto w/o Microscopy POC 63539 Your Care Team Attending Physician - XAVIER VELAZQUEZ, Tyree Rivers Primary Care Physician - CURT CLARK MD This Is Your Medications List Contact prescribing physician if questions or concerns Non-Formulary Medication (Relion insulin) acyclovir amlodipine (amLODIPine 10 mg Tab) aspirin atorvastatin (Lipitor) carvedilol (carvedilol 3.125 mg Tab) cholecalciferol (Vitamin D3 5000 intl units oral tablet) citric acid-sodium citrate (Oracit oral solution) cyanocobalamin (Vitamin B-12) daratumumab omega-3 polyunsaturated fatty acids (Fish Oil 1000 mg oral capsule) rivaroxaban (Xarelto) sodium bicarbonate (sodium bicarbonate 650 mg Tab) Procedures Performed Lithotripsy (02/19/2021), ESWL of kidney (01/24/2020), ESWL - Extracorporeal shockwave lithotripsy for renal calculus (03/09/2018), ESWL - Extracorporeal shockwave lithotripsy for renal calculus (02/09/2018), Cataract Extraction with IOL placement - OS. (10/05/2016), Cystoscopic removal of ureteric stent (07/26/2012), Cystoscopy and retrograde pyelography (07/14/2012), Cholecystectomy, Ganglionectomy of tendon sheath of wrist, Hemorrhoidectomy, Hysterectomy. Discharge Vitals Heart Rate (Peripheral) 80 Respiratory Rate 16 Blood Pressure 136/84 Height 167 cm Height 66 in Weight 87 kg Weight 191.4 lb BMI 31.2 What to do next You Need to Schedule the Following Appointments Follow Up with XAVIER VELAZQUEZ, Tyree Rivers, [place] When: Where: [facility] [address] [place] [address]- Medications What How Much When Instructions Unchanged acyclovir 400 Milligram By Mouth 2 times a day Contact prescribing physician if questions or concerns Unchanged amlodipine (amLODIPine 10 mg Tab) 10 Unknown, Oral Contact prescribing physician if questions or concerns Unchanged aspirin 81 Milligram By Mouth Every day Contact prescribing physician if questions or concerns Unchanged atorvastatin (Lipitor) By Mouth Every day Contact prescribing physician if questions or concerns Unchanged carvedilol (carvedilol 3.125 mg Tab) 2 Tablets By Mouth 2 times a day Contact prescribing physician if questions or concerns Unchanged cholecalciferol (Vitamin D3 5000 intl units oral tablet) 1 Tablets By Mouth Every day Contact prescribing physician if questions or concerns Unchanged citric acid-sodium citrate (Oracit oral solution) Contact prescribing physician if questions or concerns Unchanged cyanocobalamin (Vitamin B-12) 1,000 Microgram Contact prescribing physician if questions or concerns Unchanged daratumumab Intravenous Every 6 weeks Contact prescribing physician if questions or concerns Unchanged Non-Formulary Medication (Relion insulin) 10 Units Subcutaneous At bedtime Contact prescribing physician if questions or concerns Unchanged omega-3 polyunsaturated fatty acids (Fish Oil 1000 mg oral capsule) 1 Capsules By Mouth 2 times a day Contact prescribing physician if questions or concerns Unchanged rivaroxaban (Xarelto) By Mouth Contact prescribing physician if questions or concerns Unchanged sodium bicarbonate (sodium bicarbonate 650 mg Tab) Oral Contact prescribing physician if questions or concerns Test Results Urnls Dip Stick Auto w/o Microscopy POC 99031 (01/10/2023) Bilirubin Urine Dipstick - Negative Blood Urine Dipstick - 1+ Small Glucose Urine Dipstick - Trace 100 mg/dl Ketones Urine Dipstick - Trace - 5 mg/dl Leukocytes Urine Dipstick - Negative Nitrite Urine Dipstick - Negative Protein Urine Dipstick - 1+ (30 mg/dl) Specific [place] Urine Dipstick - 1.025 Urine Appearance Urine Dipstick - Clear Urine Color Urine Dipstick - Yellow Urobilinogen Urine Dipstick - Normal 0.2-1 EU/dl pH Urine Dipstick - 7 Allergies lenalidomide (Unknown) oxybutynin (Unknown, Rash) pregabalin (Unknown) Problems Ongoing - Any problem that you are currently receiving treatment for. Anticoagulated Diabetes mellitus Glycosuria History of kidney stones Hyperlipidemia Hypertension Incomplete bladder emptying Kidney stone Microhematuria Multiple myeloma Nocturia Proteinuria Stroke Urge incontinence Education Materials Dietary Guidelines to Help Prevent Kidney Stones Kidney stones are deposits of minerals and salts that form inside your kidneys. Your risk of developing kidney stones may be greater depending on your diet, your lifestyle, the medicines you take, and whether you have certain medical conditions. Most people can reduce their chances of developing kidney stones by following the instructions below. Depending on your overall health and the type of kidney stones you tend to develop, your dietitian may give you more specifi (more content not included)... Normal [facility] Patient Educationon 01-10-20 Patient Education Urology Dietary Guidelines to Help Prevent Kidney Stones Kidney stones are deposits of minerals and salts that form inside your kidneys. Your risk of developing kidney stones may be greater depending on your diet, your lifestyle, the medicines you take, and whether you have certain medical conditions. Most people can reduce their chances of developing kidney stones by following the instructions below. Depending on your overall health and the type of kidney stones you tend to develop, your dietitian may give you more specific instructions. What are tips for following this plan? Reading food labels ? Choose foods with no salt added or low-salt labels. Limit your sodium intake to less than 1500 mg per day. ? Choose foods with calcium for each meal and snack. Try to eat about 300 mg of calcium at each meal. Foods that contain 200?500 mg of calcium per serving include: ? 8 oz (237 ml) of milk, fortified nondairy milk, and fortified fruit juice. ? 8 oz (237 ml) of kefir, yogurt, and soy yogurt. ? 4 oz (118 ml) of tofu. ? 1 oz of cheese. ? 1 cup (300 g) of dried figs. ? 1 cup (91 g) of cooked broccoli. ? 1?3 oz can of sardines or mackerel. ? Most people need 1000 to 1500 mg of calcium each day. Talk to your dietitian about how much calcium is recommended for you. Shopping ? Buy plenty of fresh fruits and vegetables. Most people do not need to avoid fruits and vegetables, even if they contain nutrients that may contribute to kidney stones. ? When shopping for convenience foods, choose: ? Whole pieces of fruit. ? Premade salads with dressing on the side. ? Low-fat fruit and yogurt smoothies. ? Avoid buying frozen meals or prepared deli foods. ? Look for foods with live cultures, such as yogurt and kefir. Cooking ? Do not add salt to food when cooking. Place a salt shaker on the table and allow each person to add his or her own salt to taste. ? Use vegetable protein, such as beans, textured vegetable protein (TVP), or tofu instead of meat in pasta, casseroles, and soups. Meal planning ? Eat less salt, if told by your dietitian. To do this: ? Avoid eating processed or premade food. ? Avoid eating fast food. ? Eat less animal protein, including cheese, meat, poultry, or fish, if told by your dietitian. To do this: ? Limit the number of times you have meat, poultry, fish, or cheese each week. Eat a diet free of meat at least 2 days a week. ? Eat only one serving each day of meat, poultry, fish, or seafood. ? When you prepare animal protein, cut pieces into small portion sizes. For most meat and fish, one serving is about the size of one deck of cards. ? Eat at least 5 servings of fresh fruits and vegetables each day. To do this: ? Keep fruits and vegetables on hand for snacks. ? Eat 1 piece of fruit or a handful of berries with breakfast. ? Have a salad and fruit at lunch. ? Have two kinds of vegetables at dinner. ? Limit foods that are high in a substance called oxalate. These include: ? Spinach. ? Rhubarb. ? Beets. ? Potato chips and bahraini fries. ? Nuts. ? If you regularly take a diuretic medicine, make sure to eat at least 1?2 fruits or vegetables high in potassium each day. These include: ? Avocado. ? Banana. ? [place], prune, carrot, or tomato juice. ? Baked potato. ? Cabbage. ? Beans and split peas. General instructions ? Drink enough fluid to keep your urine clear or pale yellow. This is the most important thing you can do. ? Talk to your health care provider and dietitian about taking daily supplements. Depending on your health and the cause of your kidney stones, you may be advised: ? Not to take supplements with vitamin C. ? To take a calcium supplement. ? To take a daily probiotic supplement. ? To take other supplements such as magnesium, fish oil, or vitamin B6. ? Take all medicines and supplements as told by your health care provider. ? Limit alcohol intake to no more than 1 drink a day for non women and 2 drinks a day for men. One drink equals 12 oz of beer, 5 oz of wine, or 1? oz of hard liquor. ? Lose weight if told by your health care provider. Work with your dietitian to find strategies and an eating plan that works best for you. What foods are not recommended? Limit your intake of the following foods, or as told by your dietitian. Talk to your dietitian about specific foods you should avoid based on the type of kidney stones and your overall health. Grains Breads. Bagels. Rolls. Baked goods. Salted crackers. Cereal. Pasta. Vegetables Spinach. Rhubarb. Beets. Canned vegetables. Pickles. Olives. Meats and other protein foods Nuts. Nut butters. Large portions of meat, poultry, or fish. Salted or cured meats. Deli meats. Hot dogs. Sausages. Dairy Cheese. Beverages Regular soft drinks. Regular vegetable juice. Seasonings and other foods Seasoning blends with salt. Salad dr (more content not included)... Normal [facility] Urine Cytology ([facility])on 01-10-2023 Method of Extraction Voided Normal [facility] Comment on above: Performed By: #### 1 [id number] #### [facility] [address] Number of Jars 1 Invalid Interpretation Code [facility] Comment on above: Performed By: #### 1 [id number] #### [facility] [address] [id number] Specimen Urine Normal [facility] Comment on above: Performed By: #### 1 [id number] #### [facility] [address] [id number] Type of Service Technical Only Normal [facility] Comment on above: Performed By: #### 1 [id number] #### [facility] [address] [id number] Urology Office/Clinic Noteon 01-10-2023 Urology Office/Clinic Note Chief Complaint 1yr KUB HPI Staff 10m KUB due to Kidney Stones. Additional DX: Nocturia, Glycosuria, Incomplete Bladder Emptying and Urge Incontinence. *Oracit & Sodium Bicarb therapy- from Dr Suarez KUB done 01/06/23 Has been having lower back pain, not sure if it's related to kidney stone. Still getting up 1-2x/night to void. Denies double voids (as recommended at last encounter) Denies any leaking. UA today does show Small blood. Pt denies visible blood in urine. History of Present Illness Tests reviewed: reviewed UA, KUB. I have reviewed the previous health record information and history for this patient from Dr. Park. I have reviewed and verified the staff HPI to be accurate for this encounter. There have been no associated fever, chills, flank pain, or blood in the urine. Denies any urinary infections since last encounter. Review of Systems PHQ Score Initial Depression Screen Score: 0 ROS - Provider Constitutional: denies weight loss, denies hot flashes. Eyes: denies eye problems. Gastrointestinal: denies nausea, denies vomiting. Cardiovascular: denies chest pain or angina. Integumentary: no dryness Musculoskeletal: denies musculoskeletal symptoms. ENMT: denies otolaryngeal symptoms. Respiratory: no shortness of breath. Heme/Lymph: denies easy bleeding tendency, denies easy bruising tendency. Psychiatric: no confusion, no anxiety. Genitourinary: See HPI. Physical Exam Vitals & Measurements HR: 80(Peripheral) RR: 16 BP: 136/84 HT: 66 in HT: 167 cm WT: 87 kg WT: 191.4 lb BMI: 31.2 General Appearance: alert , no acute distress, well nourished, well developed female. Genitourinary: bladder nonpalpable, no flank pain. Assessment/Plan 1. History of kidney stones (Z87.442: Personal history of urinary calculi) S/p Left stone manip done 02/19/21 due to a 9 mm and two 3 mm left ureteral stones. Repeat Metabolic w/up done 03/09/21 shows low volume and low citric acid. KUB done 08/24/21 shows stable 4 mm left renal calculi. No ureteral stone visualized. KUB done 12/11/21 is negative for stones. KUB done 01/06/23 shows no appreciable urinary tract calculi. Pt continues taking Sodium Bicarb and Oracit liquid, $[address] Suarez. Takes 8 cap fulls per day. Has been having lower back pain, not sure if it's related to kidney stone. Follow up 1 year with KUB or sooner if needed. Pt understands and agrees with plan. 2. Microhematuria (R31.29: Other microscopic hematuria) UA today shows small blood. Denies gross blood. Pt reports Dr. Torres has also noted presence of microscopic blood for the past 2-3 visits. Will schedule cysto. The risks and benefits for cystoscopy have been discussed. The risks include bleeding, infection, and irritation of the bladder and urinary channel, among others. The patient, after being informed of procedural details and after questions have been answered, wishes to proceed. Full informed consent has been obtained. Will order Local anesthesia. Prophylactic abx sent to [facility]. -will send urine for cytol and call if + 3. Nocturia (R35.1: Nocturia) Ongoing, 1-2x/night to void. 4. Glycosuria (R81: Glycosuria) UA today shows 100 mg/dl (100 mg/dl). 5. Incomplete bladder emptying (R33.9: Retention of urine, unspecified) Pt was to start double voiding at the prior OV, has not tried. Denies any leaking. Follow-up With When Contact Information XAVIER VELAZQUEZ, Tyree Rivers, URL [facility] [address], [place] [address]- Additional Instructions: schedule cysto, f/u 1 yr w/KUB Patient Education Dietary Guidelines to Help Prevent Kidney Stones Martha Escobedo, personally scribed for Dr. Park on 01/10/2023 11:56:31. . Documentation recorded by the scribe, Martha Marcus, accurately reflects the services(s) I performed and decisions made by me. Authenticated by Dr. Park on 01/10/2023 11:58:16. Problem List/Past Medical History Ongoing Anticoagulated Diabetes mellitus Glycosuria History of kidney stones Hyperlipidemia Hypertension Incomplete bladder emptying Kidney stone Microhematuria Multiple myeloma Nocturia Proteinuria Stroke Urge incontinence Historical No qualifying data Procedure/Surgical History Lithotripsy (02/19/2021), ESWL of kidney (01/24/2020), ESWL - Extracorporeal shockwave lithotripsy for renal calculus (03/09/2018), ESWL - Extracorporeal shockwave lithotripsy for renal calculus (02/09/2018), Cataract Extraction with IOL placement - OS. (10/05/2016), Cystoscopic removal of ureteric stent (07/26/2012), Cystoscopy and retrograde pyelography (07/14/2012), Cholecystectomy, Ganglionectomy of tendon sheath of wrist, Hemorrhoidectomy, Hysterectomy. Medications acyclovir, 400 mg, Oral, BID amLODIPine 10 mg Tab aspirin, 81 mg, Oral, Daily carvedilol 3.125 mg Tab, 6.25 mg= 2 tab(s), Oral, BID daratumumab, IV, q6wk Fish Oil 10 (more content not included)... Normal [facility] Comment on above: Result Comment: Elec tronically Signed By: Tyree PARK MD\.br\Date and Time Signed: 01/10/23 11:58 EST\.br\Electronically Co-Signed By: Martha Marcus\.br\Date and Time Co-Signed: 01/10/23 11:57 EST XR BONE SURVEYon 01-07-2023 XR BONE SURVEY EXAMINATION: XR BONE SURVEY HISTORY: Multiple myeloma in remission COMPARISON: XR bone survey 01/29/2022 TECHNIQUE: Two lateral projections of the skull. A lateral projection of the C-spine, T-spine and L-spine. Single view of the chest and pelvis. Single view of each humerus, forearm, femur, and tibia-fibula. FINDINGS: SKULL: No lytic lesion, periosteal reaction/thickening , fracture, or dislocation. C-SPINE: 3 mm anterior listhesis of C4 on 5. Moderate-marked degenerative disc disease C5-6, C6-7. No lytic lesion. T-SPINE: No lytic lesion, periosteal reaction/thickening , fracture, or dislocation. L-SPINE: L2-3 moderate disc space narrowing. No lytic lesion, periosteal reaction/thickening , fracture, or dislocation. CHEST: No expansile lesion, lytic lesion, or fracture. PELVIS: No lytic lesion, periosteal reaction/thickening , fracture, or dislocation. R HUMERUS: No lytic lesion, periosteal reaction/thickening , fracture, or dislocation. R FOREARM: No lytic lesion, periosteal reaction/thickening , fracture, or dislocation. L HUMERUS: No lytic lesion, periosteal reaction/thickening , fracture, or dislocation. L FOREARM: No lytic lesion, periosteal reaction/thickening , fracture, or dislocation. R FEMUR: No lytic lesion, periosteal reaction/thickening , fracture, or dislocation. R TIB/FIB: No lytic lesion, periosteal reaction/thickening , fracture, or dislocation. L FEMUR: No lytic lesion, periosteal reaction/thickening , fracture, or dislocation. L TIB/FIB: No lytic lesion, periosteal reaction/thickening , fracture, or dislocation. SOFT TISSUES: No swelling, nodules, visible mass, or radiopaque foreign body. Right side Port-A-Cath. IMPRESSION: 1. No suspicious lytic lesions to suggest multiple myeloma. Area previously seen within right humeral head suspected to represent degenerative changes or posttraumatic changes at insertion of superior rotator cuff. 2. Stable multilevel degenerative changes of cervical and lumbar spine. Electronically authenticated by: DIANN IBANEZ Date: 2023-01-07 07:54 Normal [facility] XR KUB 1 VIEWon 01-06-2023 XR KUB 1 VIEW EXAMINATION: XR KUB 1 VIEW HISTORY: Kidney stone COMPARISON: XR KUB 03/05/2022 FINDINGS: KIDNEY/URETER - RIGHT: No visible renal or ureteral calcifications. KIDNEY/URETER - LEFT: No visible renal or ureteral calcifications. PELVIS: No visible ureteral stones. BOWEL: No abnormal dilation or deviation. BONES: No acute abnormality. OTHER: Numerous splenic calcifications compatible with granulomas. IMPRESSION: 1. No appreciable urinary tract calculi. Electronically authenticated by: DIANN IBANEZ Date: 2023-01-06 18:33 Normal [facility] Albumin [Mass/volume] in Ser um or PlasmaOrdered By: Claire Choi on 01-04-2023 Albumin [Mass/Vol] 3.6 g/dL 3.2-5.5 [facility] Alkaline phosphatase [Enzyma tic activity/volume] in Serum or PlasmaOrdered By: Claire Choi on 01-04-2023 ALP [Catalytic activity/Vol] 99 U/L 32-92 [facility] Aspartate aminotransferase [ Enzymatic activity/volume] in Serum or PlasmaOrdered By: Claire Choi on 01-04-2023 AST [Catalytic activity/Vol] 14 U/L 10-42 [facility] Basophils Auto (Bld) [#/Vol] Ordered By: Claire Choi on 01-04-2023 Basophils (Bld) [#/Vol] 0.1 10*3/uL 0.0-0.2 [facility] Basophils/100 WBC Auto (Bld) Ordered By: Claire Choi on 01-04-2023 Basophils/100 WBC (Bld) 0.8 % . [facility] Bilirubin.total [Mass/volume ] in Serum or PlasmaOrdered By: Claire Choi on 01-04-2023 Bilirubin [Mass/Vol] 0.6 mg/dL 0.3-1.2 [facility] Calcium [Mass/volume] in Ser um or PlasmaOrdered By: Claire Choi on 01-04-2023 Calcium [Mass/Vol] 8.7 mg/dL 8.2-10.2 [facility] Carbon dioxide, total [Moles /volume] in Serum or PlasmaOrdered By: Claire Choi on 01-04-2023 CO2 [Moles/Vol] 21.9 mmol/L 22.0-30.0 [facility] Chloride [Moles/volume] in S amanda or PlasmaOrdered By: Claire Choi on 01-04-2023 Chloride [Moles/Vol] 108 mmol/L 95-114 [facility] Complete Blood Count Auto Di ffon 01-04-2023 Basophils (Bld) [#/Vol] 0.1 10*3/uL Normal 0.0-0.2 [facility] Comment on above: Result Comment: PERF ORMED BY: [facility] [address] [address] PATHOLOGIST CCIE LUIS DEE M.D. Performed By: #### K APPA, SPE #### [facility] , #### CMP, CBC #### [address] Basophils/100 WBC (Bld) 0.8 % Normal . [facility] Comment on above: Performed By: #### K APPA, SPE #### [facility] , #### CMP, CBC #### [address] Eosinophils (Bld) [#/Vol] 0.2 10*3/uL Normal 0.0-0.45 [facility] Comment on above: Performed By: #### K APPA, SPE #### [facility] , #### CMP, CBC #### [address] Eosinophils/100 WBC (Bld) 2.3 % Normal . [facility] Comment on above: Performed By: #### K APPA, SPE #### [facility] , #### CMP, CBC #### [address] Erythrocyte distribution width (RBC) [Ratio] 13.2 % Normal 11.9-15.3 [facility] Comment on above: Performed By: #### K APPA, SPE #### [facility] , #### CMP, CBC #### [address] Hematocrit (Bld) [Volume fraction] 38.4 % Normal 34.0-46.4 [facility] Comment on above: Performed By: #### K APPA, SPE #### [facility] , #### CMP, CBC #### [facility] [address] [place] [address] [place] Hemoglobin (Bld) [Mass/Vol] 12.7 g/dL Normal 11.8-15.4 [facility] Comment on above: Performed By: #### K APPA, SPE #### [facility] , #### CMP, CBC #### [address] Lymphocytes (Bld) [#/Vol] 3.0 10*3/uL Normal 1.00-4.8 [facility] Comment on above: Performed By: #### K APPA, SPE #### [facility] , #### CMP, CBC #### [address] Lymphocytes/100 WBC (Bld) 34.1 % Normal . [facility] Comment on above: Performed By: #### K APPA, SPE #### [facility] , #### CMP, CBC #### [address] MCH (RBC) [Entitic mass] 31.4 pg Normal 24.7-34.3 [facility] Comment on above: Performed By: #### K APPA, SPE #### [facility] , #### CMP, CBC #### [address] MCV (RBC) [Entitic vol] 95.1 fL Normal 80-100 [facility] Comment on above: Performed By: #### K APPA, SPE #### [facility] , #### CMP, CBC #### [address] Mean Corpuscular HGB Conc 33.0 g/dL Normal 32.0-35.0 [facility] Comment on above: Performed By: #### K APPA, SPE #### [facility] , #### CMP, CBC #### [address] Monocytes (Bld) [#/Vol] 0.7 10*3/uL Normal 0.0-0.8 [facility] Comment on above: Performed By: #### K APPA, SPE #### [facility] , #### CMP, CBC #### [place] [address] [place] Monocytes/100 WBC (Bld) 8.0 % Normal . [facility] Comment on above: Performed By: #### K APPA, SPE #### [facility] , #### CMP, CBC #### [place] [address] [place] Neutrophils (Bld) [#/Vol] 4.9 10*3/uL Normal 1.8-7.7 [facility] Comment on above: Performed By: #### K APPA, SPE #### [facility] , #### CMP, CBC #### [address] Neutrophils/100 WBC (Bld) 54.8 % Normal . [facility] Comment on above: Performed By: #### K APPA, SPE #### [facility] , #### CMP, CBC #### [place] [address] [place] NRBC% 0.0 /100{WBC} Normal 0-0.5 [facility] [facility] Comment on above: Performed By: #### K APPA, SPE #### [facility] , #### CMP, CBC #### [address] Platelet mean volume (Bld) [Entitic vol] 9.6 fL Normal 6.3-10.7 [facility] Comment on above: Performed By: #### K APPA, SPE #### [facility] , #### CMP, CBC #### [place] [address] [place] Platelets (Bld) [#/Vol] 210 10*3/uL Normal 150-450 [facility] Comment on above: Performed By: #### K APPA, SPE #### [facility] , #### CMP, CBC #### [facility] [address] [place] [address] RBC (Bld) [#/Vol] 4.04 10*6/uL Normal 3.60-5.00 [facility] Comment on above: Performed By: #### K APPA, SPE #### [facility] , #### CMP, CBC #### [address] WBC (Bld) [#/Vol] 8.9 10*3/uL Normal 3.8-11.6 [facility] Comment on above: Performed By: #### K APPA, SPE #### [facility] , #### CMP, CBC #### [address] Comprehensive Metabolic Pane [place] 01-04-2023 Albumin [Mass/Vol] 3.6 g/dL Normal 2.9-4.4 [facility] Comment on above: Performed By: #### K APPA, SPE #### [facility] , #### CMP, CBC #### [address] Albumin/Globulin [Mass ratio] 1.4 {ratio} Normal [facility] Comment on above: Performed By: #### K APPA, SPE #### [facility] , #### CMP, CBC #### [facility] [address] [place] [address] ALP [Catalytic activity/Vol] 99 U/L High 32-92 [facility] Comment on above: Performed By: #### K APPA, SPE #### [facility] , #### CMP, CBC #### [facility] [address] [place] [address] ALT [Catalytic activity/Vol] 14 U/L Normal 10-60 [facility] Comment on above: Performed By: #### K APPA, SPE #### [facility] , #### CMP, CBC #### [facility] [address] [place] [address] Anion gap [Moles/Vol] 11.4 mmol/L Normal 6.0-15.0 [facility] Comment on above: Performed By: #### K APPA, SPE #### [facility] , #### CMP, CBC #### [place] [address] [place] AST [Catalytic activity/Vol] 14 U/L Normal 10-42 [facility] Comment on above: Performed By: #### K APPA, SPE #### [facility] , #### CMP, CBC #### [address] Bilirubin [Mass/Vol] 0.6 mg/dL Normal 0.3-1.2 [facility] Comment on above: Performed By: #### K APPA, SPE #### [facility] , #### CMP, CBC #### [address] Calcium [Mass/Vol] 8.7 mg/dL Normal 8.2-10.2 [facility] Comment on above: Performed By: #### K APPA, SPE #### [facility] , #### CMP, CBC #### [facility] [address] [place] [address] [place] Chloride [Moles/Vol] 108 mmol/L Normal 95-114 [facility] Comment on above: Performed By: #### K APPA, SPE #### [facility] , #### CMP, CBC #### [facility] [address] [place] [address] [place] CO2 [Moles/Vol] 21.9 mmol/L Low 22.0-30.0 [facility] Comment on above: Performed By: #### K APPA, SPE #### [facility] , #### CMP, CBC #### [facility] [address] Creatinine [Mass/Vol] 2.48 mg/dL High 0.44-1.03 [facility] Comment on above: Performed By: #### K APPA, SPE #### [facility] , #### CMP, CBC #### [place] [address] [place] Creatinine Clr Calc Pharmacy 19.82 [facility] Comment on above: Result Comment: PERF ORMED BY: [place] [address] PATHOLOGIST CCIE LUIS DEE M.D. Performed By: #### K APPA, SPE #### [facility] , #### CMP, CBC #### [address] Estimated GFR ( Valarie 23 [facility] Comment on above: Result Comment: GFR estimated reference range: According to KDOQI guidelines, <60 ml/min/1.73m2 is sufficient to diagnose a patient with chronic kidney disease. Performed By: #### K APPA, SPE #### [facility] , #### CMP, CBC #### [facility] [address] [place] [address] Estimated GFR (Non- Am 19 [facility] Comment on above: Performed By: #### K APPA, SPE #### [facility] , #### CMP, CBC #### [facility] [address] [place] [address] [place] Globulin (S) [Mass/Vol] 2.5 g/dL [facility] Comment on above: Performed By: #### K APPA, SPE #### [facility] , #### CMP, CBC #### [address] Glucose [Mass/Vol] 144 mg/dL High 70-100 [facility] Comment on above: Result Comment: [place] Glucose Reference Range is dependent on time and content of last meal. Glucose of more than 200 mg/dL in a nonstressed, ambulatory subject supports the diagnosis of Diabetes Mellitus. ADA recommended reference range Performed By: #### K APPA, SPE #### [facility] , #### CMP, CBC #### [facility] [address] Potassium [Moles/Vol] 4.3 mmol/L Normal 3.5-5.1 [facility] Comment on above: Performed By: #### K APPA, SPE #### [facility] , #### CMP, CBC #### [address] Protein [Mass/Vol] 6.1 g/dL Normal 6.1-7.9 [facility] Comment on above: Performed By: #### K APPA, SPE #### [facility] , #### CMP, CBC #### [facility] [address] [place] [address] [place] Sodium [Moles/Vol] 137 mmol/L Normal 136-146 [facility] Comment on above: Performed By: #### K APPA, SPE #### [facility] , #### CMP, CBC #### [facility] [address] [place] [address] [place] Urea nitrogen [Mass/Vol] 33 mg/dL High 9-23 [facility] Comment on above: Performed By: #### K APPA, SPE #### [facility] , #### CMP, CBC #### [facility] [address] [place] [address] [place] Creatinine and Glomerular fi ltration rate.predicted panel (S/P/Bld)Ordered By: Claire Choi on 01-04-2023 Creatinine [Mass/Vol] 2.48 mg/dL 0.44-1.03 [facility] Eosinophils Auto (Bld) [#/Vo l]Ordered By: Claire Choi on 01-04-2023 Eosinophils (Bld) [#/Vol] 0.2 10*3/uL 0.0-0.45 [facility] Eosinophils/100 WBC Auto (Bl d)Ordered By: Claire Choi on 01-04-2023 Eosinophils/100 WBC (Bld) 2.3 % . [facility] Erythrocyte distribution wid th Auto (RBC) [Ratio]Ordered By: Claire Choi on 01-04-2023 Erythrocyte distribution width (RBC) [Ratio] 13.2 % 11.9-15.3 [facility] Estimated glomerular filtrat ion rate (GFR) non- AmericanOrdered By: Claire Choi on 01-04-2023 GFR/1.73 sq M.predicted among non-blacks MDRD (S/P/Bld) [Vol rate/Area] 19 mL/Min [facility] Free K+L LT Chains, Qn, Son 01-04-2023 Free [place] Light Chains, S 26.9 mg/L High 3.3-19.4 [facility] Comment on above: Performed By: #### K APPA, SPE #### [facility] , #### CMP, CBC #### [facility] [address] [place] [address] Free [place] Light Chains, S 12.0 mg/L Normal 5.7-26.3 [facility] Comment on above: Performed By: #### K APPA, SPE #### [facility] , #### CMP, CBC #### [facility] [address] [place] [address] [place]/Lambda Ratio, S 2.24 High 0.26-1.65 [facility] Comment on above: Result Comment: Perf ormed at: CB - [facility] [address] [id number] Emergency Medicine Medical Director: Elpidio Delgado PhD, Phone: [phone] PERFORMED BY: [place] [address] PATHOLOGIST CCIE LUIS DEE M.D. Performed By: #### K APPA, SPE #### [facility] , #### CMP, CBC #### [facility] [address] [place] [id number] [facility] Globulin Calc (S) [Mass/Vol] Ordered By: Claire Choi on 01-04-2023 Globulin (S) [Mass/Vol] 2.5 g/dL [facility] Glucose [Mass/volume] in Ser um or PlasmaOrdered By: Claire Choi on 01-04-2023 Glucose [Mass/Vol] 144 mg/dL 70-100 [facility] Comment on above: ADA recommended refe rence rangeRandom Glucose Reference Range is dependent on time and content of last meal. Glucose of more than 200 mg/dL in a nonstressed, ambulatory subject supports the diagnosis of Diabetes Mellitus. Hematocrit Auto (Bld) [Volum e fraction]Ordered By: Claire Choi on 01-04-2023 Hematocrit (Bld) [Volume fraction] 38.4 % 34.0-46.4 [facility] Hemoglobin [Mass/volume] in BloodOrdered By: Claire Choi on 01-04-2023 Hemoglobin (Bld) [Mass/Vol] 12.7 g/dL 11.8-15.4 [facility] Immunoglobulin light chains. kappa.free [Mass/volume] in SerumOrdered By: Claire Choi on 01-04-2023 Immunoglobulin light chains.kappa.free (S) [Mass/Vol] 26.9 mg/L 3.3-19.4 [facility] Immunoglobulin light chains. kappa.free/Immunoglobulin light chains.lambda.free [MassOrdered By: Claire Choi on 01-04-2023 Immunoglobulin light chains.kappa.free/Immunog lobulin light chains.lambda.free (S) [Mass ratio] 2.24 0.26-1.65 [facility] Comment on above: Performed at: [address] [id number] Director: Elpidio Delgado PhD, Phone: [phone] Immunoglobulin light chains. lambda.free [Mass/volume] in Serum or PlasmaOrdered By: Claire Choi on 01-04-2023 Immunoglobulin light chains.lambda.free [Mass/Vol] 12.0 mg/L 5.7-26.3 [facility] Leukocytes [#/volume] correc dominick for nucleated erythrocytes in Blood by Automated counOrdered By: Claire Choi on 01-04-2023 WBC corrected for nucl RBC Auto (Bld) [#/Vol] 8.9 10*3/uL 3.8-11.6 [facility] Lymphocytes Auto (Bld) [#/Vo l]Ordered By: Claire Choi on 01-04-2023 Lymphocytes (Bld) [#/Vol] 3.0 10*3/uL 1.00-4.8 [facility] Lymphocytes/100 WBC Auto (Bl d)Ordered By: Claire Choi on 01-04-2023 Lymphocytes/100 WBC (Bld) 34.1 % . [facility] MCH Auto (RBC) [Entitic mass ]Ordered By: Claire Choi on 01-04-2023 MCH (RBC) [Entitic mass] 31.4 pg 24.7-34.3 [facility] MCHC Auto (RBC) [Mass/Vol]Or dered By: Claire Choi on 01-04-2023 MCHC (RBC) [Mass/Vol] 33.0 g/dL 32.0-35.0 [facility] MCV Auto (RBC) [Entitic vol] Ordered By: Claire Choi on 01-04-2023 MCV (RBC) [Entitic vol] 95.1 fL 80-100 F [facility] Monocytes Auto (Bld) [#/Vol] Ordered By: Claire Choi on 01-04-2023 Monocytes (Bld) [#/Vol] 0.7 10*3/uL 0.0-0.8 [facility] Monocytes/100 WBC Auto (Bld) Ordered By: Claire Choi on 01-04-2023 Monocytes/100 WBC (Bld) 8.0 % . F [facility] Neutrophils Auto (Bld) [#/Vo l]Ordered By: Claire Choi on 02-21-2023 Neutrophils (Bld) [#/Vol] 4.9 10*3/uL 1.8-7.7 [facility] Neutrophils/100 WBC Auto (Bl d)Ordered By: Claire Choi on 01-04-2023 Neutrophils/100 WBC (Bld) 54.8 % . [facility] No Panel InformationOrdered By: Claire Choi on 01-04-2023 Estimated GFR () 23 mL/Min [facility] Comment on above: GFR estimated refere nce range: According to KDOQI guidelines, <60 ml/min/1.73m2 is sufficient to diagnose a patient with chronic kidney disease. Pharmacy Creatinine Clearance (Chem 19.82 [facility] Nucleated erythrocytes [Pres ence] in Blood by Automated countOrdered By: Claire Choi on 01-04-2023 Nucleated RBC Auto Ql (Bld) 0.0 /100{WBC} 0-0.5 [facility] Platelet mean volume Auto (B ld) [Entitic vol]Ordered By: Claire Choi on 01-04-2023 Platelet mean volume (Bld) [Entitic vol] 9.6 fL 6.3-10.7 [facility] Platelets Auto (Bld) [#/Vol] Ordered By: Claire Choi on 01-04-2023 Platelets (Bld) [#/Vol] 210 10*3/uL 150-450 [facility] Potassium [Moles/volume] in Serum or PlasmaOrdered By: Claire Choi on 01-04-2023 Potassium [Moles/Vol] 4.3 mmol/L 3.5-5.1 [facility] Protein Electrophoresis, Ser umon 01-04-2023 Albumin/Globulin [Mass ratio] 1.5 {ratio} Normal 0.7-1.7 [facility] Comment on above: Performed By: #### K APPA, SPE #### [facility] , #### CMP, CBC #### [facility] [address] Uydre-0-Ahidcobc 0.2 g/dL Normal 0.0-0.4 [facility] Comment on above: Performed By: #### K APPA, SPE #### [facility] , #### CMP, CBC #### [address] Wmplt-8-Fywococe 0.8 g/dL Normal 0.4-1.0 [facility] Comment on above: Performed By: #### K APPA, SPE #### [facility] , #### CMP, CBC #### [address] Beta Globulin 0.9 g/dL Normal 0.7-1.3 [facility] Comment on above: Performed By: #### K APPA, SPE #### [facility] , #### CMP, CBC #### [address] Gamma Globulin 0.6 g/dL Normal 0.4-1.8 [facility] Comment on above: Performed By: #### K APPA, SPE #### [facility] , #### CMP, CBC #### [address] Globulin (S) [Mass/Vol] 2.4 g/dL Normal 2.2-3.9 [facility] Comment on above: Performed By: #### K APPA, SPE #### [facility] , #### CMP, CBC #### [address] M-Krystian Not Observed Normal Not Observed [facility] Comment on above: Performed By: #### K APPA, SPE #### [facility] , #### CMP, CBC #### [facility] [address] [place] [address] Protein [Mass/Vol] 6.0 g/dL Normal 6.0-8.5 [facility] Comment on above: Performed By: #### K APPA, SPE #### [facility] , #### CMP, CBC #### [facility] [address] [place] [id number] [place] SPE-Note Normal . [facility] Comment on above: Result Comment: Prot ein electrophoresis scan will follow via computer, mail, or mule driver delivery. Performed at: - [facility] [address] [id number] Emergency Medicine Medical Director: Elpidio Delgado PhD, Phone: [phone] Performed By: #### K APPA, SPE #### [facility] , #### CMP, CBC #### [facility] [address] [id number] [place] Protein [Mass/volume] in Ser um or PlasmaOrdered By: Claire Choi on 01-04-2023 Protein [Mass/Vol] 6.1 g/dL 6.1-7.9 [facility] RBC Auto (Bld) [#/Vol]Ordere d By: Claire Choi on 01-04-2023 RBC (Bld) [#/Vol] 4.04 10*6/uL 3.60-5.00 [facility] Serum or plasma alanine genao otransferase measurement without P-5'-P (enzymatic activiOrdered By: Claire Choi on 01-04-2023 ALT No additional P-5'-P [Catalytic activity/Vol] 14 U/L 10-60 [facility] Serum or plasma albumin/glob ulin mass ratioOrdered By: Claire Choi on 01-04-2023 Albumin/Globulin [Mass ratio] 1.4 {ratio} [facility] Serum or plasma anion gap de terminationOrdered By: Claire Choi on 01-04-2023 Anion gap [Moles/Vol] 11.4 mmol/L 6.0-15.0 [facility] Sodium [Moles/volume] in Ser um or PlasmaOrdered By: Claire Choi on 01-04-2023 Sodium [Moles/Vol] 137 mmol/L 136-146 [facility] Urea nitrogen [Mass/volume] in Serum or PlasmaOrdered By: Claire Choi on 01-04-2023 Urea nitrogen [Mass/Vol] 33 mg/dL 9 [facility] WBC Auto (Bld) [#/Vol]Ordere d By: Claire Choi on 01-04-2023 WBC (Bld) [#/Vol] 8.9 10*3/uL 3.8-11.6 [facility] PTH INTACTon 12-15-2022 PTH, Intact 79 pg/mL Critically high 15-[address] [facility] Comment on above: Performed By: #### M G, RENAL, URIC #### [facility] [address] [place] [address] Dr. Richa Cheema HEMOGRAM AND PLATELon 2022 Hematocrit (Bld) [Volume fraction] 40.4 % Normal 36.0-48.0 [facility] Comment on above: Performed By: #### H H #### [facility] [address] [place] [address] Dr. Richa Cheema Hemoglobin (Bld) [Mass/Vol] 13.5 g/dL Normal 12.0-16.0 [facility] Comment on above: Performed By: #### H H #### [facility] [address] [place] [address] Dr. Richa Cheema MCH (RBC) [Entitic mass] 31.7 pg Normal 26.7-34.0 [facility] Comment on above: Performed By: #### H H #### [facility] [address] [place] [address] Dr. Richa Cheema MCHC (RBC) [Mass/Vol] 33.4 g/dL Normal 29.9-35.2 [facility] Comment on above: Performed By: #### H H #### [facility] [address] [place] [address] Dr. Richa Cheema MCV (RBC) [Entitic vol] 94.8 fL Normal 81.0-99.0 [facility] Comment on above: Performed By: #### H H #### [facility] [address] [place] [address] Dr. Richa Cheema PLT 218 103/ul Normal 150-450 [facility] Comment on above: Performed By: #### H H #### [facility] [address] [place] [address] Dr. Richa Cheema RBC 4.26 106/ul Normal 4.20-5.40 [facility] Comment on above: Performed By: #### H H #### [facility] [address] [place] [address] Dr. Richa Cheema WBC 8.7 103/ul Normal 4.0-11.0 [facility] Comment on above: Performed By: #### H H #### [facility] [address] [place] [address] Dr. Richa Cheema MAGNESIUMon 12-14-2022 Magnesium [Mass/Vol] 2.0 mg/dL Normal 1.8-2.4 [facility] Comment on above: Performed By: #### M G, RENAL, URIC #### [facility] [address] [place] [address] Dr. Richa Cheema RENAL FUNCTION PANELon 12-14 Albumin [Mass/Vol] 3.4 g/dL Normal 3.4-5.0 [facility] Comment on above: Performed By: #### M G, RENAL, URIC #### [facility] [address] [place] [address] Dr. Richa Cheema Calcium [Mass/Vol] 8.6 mg/dL Normal 8.5-10.1 [facility] Comment on above: Performed By: #### M G, RENAL, URIC #### [facility] [address] [place] [address] Dr. Richa Cheema Chloride [Moles/Vol] 104 mmol/L Normal 98-107 [facility] Comment on above: Performed By: #### M G, RENAL, URIC #### [facility] [address] [place] [address] Dr. Richa Cheema CO2 [Moles/Vol] 29.7 mmol/L Normal 21.0-32.0 [facility] Comment on above: Performed By: #### M G, RENAL, URIC #### [facility] [address] [address] [address] Richa Cheema Creatinine [Mass/Vol] 2.29 mg/dL Critically high 0.55-1.02 [facility] Comment on above: Performed By: #### M G, RENAL, URIC #### [facility] [address] [address] [address] Richa Cheema EGFR-AF BURUNDIAN 25 mL/min/1.73m2 Critically low >=60 [facility] Comment on above: Performed By: #### M G, RENAL, URIC #### [facility] [address] [address] [address] Richa Cheema EGFR-NON AF BURUNDIAN 21 mL/min/1.73m2 Critically low >=60 [facility] Comment on above: Performed By: #### M G, RENAL, URIC #### [facility] [address] [place] [address] Dr. Richa Cheema Glucose [Mass/Vol] 133 mg/dL Critically high 74-106 [facility] Comment on above: Performed By: #### M G, RENAL, URIC #### [facility] [address] [address] [address] Richa Cheema Phosphate [Mass/Vol] 3.9 mg/dL Normal 2.6-4.7 [facility] Comment on above: Performed By: #### M G, RENAL, URIC #### [facility] [address] [place] [address] Dr. Richa Cheema Potassium [Moles/Vol] 4.4 mmol/L Normal 3.5-5.1 [facility] Comment on above: Performed By: #### M G, RENAL, URIC #### [facility] [address] [address] [address] Richa Cheema Sodium [Moles/Vol] 141 mmol/L Normal 136-145 [facility] Comment on above: Performed By: #### M G, RENAL, URIC #### [facility] [address] [address] [address] Richa Cheema Urea nitrogen [Mass/Vol] 30.0 mg/dL Critically high 7.0-18 .0 [facility] Comment on above: Performed By: #### M G, RENAL, URIC #### [facility] [address] [address] [address] Richa Cheema UA RANDOM W/MICROSCOPICon BACTERIA NONE SEEN Normal NONE SEEN [facility] Comment on above: Performed By: #### U AMIC #### [facility] [address] [address] [address] Richa Cheema Bilirubin Ql (U) Negative Normal NEGATIVE [facility] Comment on above: Performed By: #### U AMIC #### [facility] [address] [address] [address] Richa Cheema CAST NONE SEEN Normal NONE SEEN [facility] Comment on above: Performed By: #### U AMIC #### [facility] [address] [address] [address] Richa Cheema Clarity (U) CLEAR Normal CLEAR [facility] Comment on above: Performed By: #### U AMIC #### [facility] [address] [address] [address] Richa Cheema Color (U) LT. YELLOW Normal YELLOW [facility] Comment on above: Performed By: #### U AMIC #### [facility] [address] [address] [address] Richa Cheema Crystals LM Nom (Urine sed) NONE SEEN Normal NONE SEEN [facility] Comment on above: Performed By: #### U AMIC #### [facility] [address] [address] [address] Richa Cheema Epithelial cells LM Ql (Urine sed) RARE Normal NONE SEEN /RARE [facility] Comment on above: Performed By: #### U AMIC #### [facility] [address] [address] [address] Richa Cheema Glucose Ql (U) Negative Normal NEGATIVE [facility] Comment on above: Performed By: #### U AMIC #### [facility] [address] [place] [address] Dr. Richa Cheema Hemoglobin Ql (U) TRACE-INTACT Abnormal NEGATIVE [facility] Comment on above: Performed By: #### U AMIC #### [facility] [address] [address] [address] Richa Cheema Ketones Ql (U) Negative Normal NEGATIVE [facility] Comment on above: Performed By: #### U AMIC #### [facility] [address] [address] [address] Richa Cheema LEUKOCYTES Negative Normal NEGATIVE [facility] Comment on above: Performed By: #### U AMIC #### [facility] [address] [address] [address] Richa Cheema MUCOUS NONE SEEN Normal NONE SEEN [facility] Comment on above: Performed By: #### U AMIC #### [facility] [address] [place] [address] Dr. Richa Cheema Nitrite Ql (U) Negative Normal NEGATIVE [facility] Comment on above: Performed By: #### U AMIC #### [facility] [address] [place] [address] Dr. Richa Cheema pH (U) 8.0 [pH] Normal 5-9 [facility] Comment on above: Performed By: #### U AMIC #### [facility] [address] [place] [address] Dr. Richa Cheema RBC 0-2 Normal 0-2 [facility] Comment on above: Performed By: #### U AMIC #### [facility] [address] [place] [address] Dr. Richa Cheema SPEC GRAVITY 1.015 Normal 1.005-<=1.02 5 [facility] Comment on above: Performed By: #### U AMIC #### [facility] [address] [place] [address] Dr. Richa Cheema UA PROTEIN 100 mg/dl Abnormal NEGATIVE/ TRACE [facility] Comment on above: Performed By: #### U AMIC #### [facility] [address] [place] [address] Dr. Richa Cheema Urobilinogen Qn (U) 0.2 {Marley'U}/dL Normal 0.2 - 1. 0 [facility] Comment on above: Performed By: #### U AMIC #### [facility] [address] [place] [address] Dr. Richa Cheema WBC NONE SEEN Normal NONE SEEN [facility] Comment on above: Performed By: #### U AMIC #### [facility] [address] [place] [address] Dr. Richa Cheema URIC ACID SERUMon 12-14-2022 Urate [Mass/Vol] 5.3 mg/dL Normal 2.6-6.[address] [facility] Comment on above: Performed By: #### M G, RENAL, URIC #### [facility] [address] [place] [address] Dr. Richa Cheema URINE T PROTEIN CREAT RATIOo n 12-14-2022 Protein (U) [Mass/Vol] 113.5 mg/dL Critically high <=12.0 [facility] Comment on above: Performed By: #### M G, RENAL, URIC #### [facility] [address] [place] [address] Dr. Richa Cheema UR PROT CREAT RAT 1.55 Normal [facility] Comment on above: Performed By: #### M G, RENAL, URIC #### [facility] [address] [place] [address] Dr. Richa Cheema URINE CREAT 73.37 mg/dL Normal 20.00-300.00 [facility] Comment on above: Performed By: #### M G, RENAL, URIC #### [facility] [address] [place] [address] Dr. Richa Cheema VITAMIN D 25 OHon 12-14-2022 VIT D 25-OH 42.8 ng/mL Normal [facility] Comment on above: Performed By: #### H H #### [facility] [address] [place] [address] Dr. Richa Cheema VIT D RANGES SEE BELOW Normal [facility] Comment on above: Result Comment: <20 ng/mL Vit D deficient 20 - <30 ng/mL Vit D insufficient 30 - 100 ng/mL Vit D sufficient >100 ng/mL Potential Toxicity Performed By: #### H H #### [facility] [address] [address] [address] Richa Cheema Albumin [Mass/volume] in Ser um or PlasmaOrdered By: Claire Choi on 10-04-2022 Albumin [Mass/Vol] 3.6 g/dL 2.9-4.4 [facility] - Hematology and Cell countsOrdered By: Claire Choi on 10-04-2022 Nucleated RBC/100 WBC (Bld) [Ratio] 0.1 % 0-0.5 [facility] No Panel InformationOrdered By: Claire Choi on 10-04-2022 Protein Electrophoresis M-Krystian Not observed g/dL Not Observed [facility] Protein Electrophoresis Note See comment . [facility] Comment on above: Protein electrophore sis scan will follow via computer,mail, or mule driver delivery.Performed at: [email or web address] [id number] Director: Elpidio Delgado PhD, Phone: [phone] Protein [Mass/volume] in Ser um or PlasmaOrdered By: Claire Choi on 10-04-2022 Protein [Mass/Vol] 6.1 g/dL 6.0-8.5 [facility] Serum globulin measurement ( mass/volume)Ordered By: Claire Choi on 10-04-2022 Globulin (S) [Mass/Vol] 2.5 g/dL 2.2-3.9 [facility] Serum or plasma albumin/glob ulin mass ratioOrdered By: Claire Choi on 10-04-2022 Albumin/Globulin [Mass ratio] 1.4 {ratio} 0.7-1.7 [facility] Serum or plasma alpha 1 glob ulin measurement by electrophoresis (mass/volume)Ordered By: Claire Choi on 10-04-2022 Alpha 1 globulin Elph [Mass/Vol] 0.2 g/dL 0.0-0.4 [facility] Serum or plasma alpha 2 glob ulin measurement by electrophoresis (mass/volume)Ordered By: Claire Choi on 10-04-2022 Alpha 2 globulin Elph [Mass/Vol] 0.9 g/dL 0.4-1.0 [facility] Serum or plasma beta globuli n measurement by electrophoresis (mass/volume)Ordered By: Claire Choi on 10-04-2022 Beta globulin Elph [Mass/Vol] 0.8 g/dL 0.7-1.3 [facility] Serum or plasma gamma globul in measurement by electrophoresis (mass/volume)Ordered By: Claire Choi on 10-04-2022 Gamma globulin Elph [Mass/Vol] 0.6 g/dL 0.4-1.8 [facility] Albumin [Mass/volume] in Ser um or PlasmaOrdered By: Claire Choi on 07-13-2022 Albumin [Mass/Vol] 3.4 g/dL 2.9-4.4 [facility] Immunoglobulin light chains. kappa.free [Mass/volume] in SerumOrdered By: Claire Choi on 07-13-2022 Immunoglobulin light chains.kappa.free (S) [Mass/Vol] 21.9 mg/L 3.3-19.4 [facility] Immunoglobulin light chains. kappa.free/Immunoglobulin light chains.lambda.free [MassOrdered By: Claire Choi on 07-13-2022 Immunoglobulin light chains.kappa.free/Immunog lobulin light chains.lambda.free (S) [Mass ratio] 1.87 0.26-1.65 [facility] Comment on above: Performed at: [address] [id number] Emergency Medicine Medical Director: Elpidio Delgado PhD, Phone: [phone] Immunoglobulin light chains. lambda.free [Mass/volume] in Serum or PlasmaOrdered By: Claire Choi on 07-13-2022 Immunoglobulin light chains.lambda.free [Mass/Vol] 11.7 mg/L 5.7-26.3 [facility] Laboratory - Chemistry and C hemistry - challengeOrdered By: Claire Choi on 07-13-2022 Protein [Mass/Vol] 0.2 g/dL Not Observed [facility] No Panel InformationOrdered By: Claire Choi on 07-13-2022 Protein Electrophoresis Note See comment . [facility] Comment on above: Protein electrophore sis scan will follow via computer, mail, or mule driver delivery. Performed at: - [facility] [id number] Emergency Medicine Medical Director: Elpidio Delgado PhD, Phone: [phone] Protein [Mass/volume] in Ser um or PlasmaOrdered By: Claire Choi on 07-13-2022 Protein [Mass/Vol] 6.2 g/dL 6.0-8.5 [facility] Serum globulin measurement ( mass/volume)Ordered By: Claire Choi on 07-13-2022 Globulin (S) [Mass/Vol] 2.8 g/dL 2.2-3.9 [facility] Serum or plasma albumin/glob ulin mass ratioOrdered By: Claire Choi on 07-13-2022 Albumin/Globulin [Mass ratio] 1.2 {ratio} 0.7-1.7 [facility] Serum or plasma alpha 1 glob ulin measurement by electrophoresis (mass/volume)Ordered By: Claire Choi on 07-13-2022 Alpha 1 globulin Elph [Mass/Vol] 0.2 g/dL 0.0-0.4 [facility] Serum or plasma alpha 2 glob ulin measurement by electrophoresis (mass/volume)Ordered By: Claire Choi on 07-13-2022 Alpha 2 globulin Elph [Mass/Vol] 0.9 g/dL 0.4-1.0 [facility] Serum or plasma beta globuli n measurement by electrophoresis (mass/volume)Ordered By: Claire Choi on 07-13-2022 Beta globulin Elph [Mass/Vol] 1.0 g/dL 0.7-1.3 [facility] Serum or plasma gamma globul in measurement by electrophoresis (mass/volume)Ordered By: Claire Choi on 07-13-2022 Gamma globulin Elph [Mass/Vol] 0.8 g/dL 0.4-1.8 [facility] CBC AUTO DIFFon 07-12-2022 BASO # 0.0 103/ul Normal 0.0-0.1 [facility] Comment on above: Performed By: #### M G, RENAL, URIC #### [facility] [address] [place] [address] Dr. Richa Cheema Basophils/100 WBC (Bld) 0.2 % Normal 0.2-2.0 [facility] Comment on above: Performed By: #### M G, RENAL, URIC #### [facility] [address] [place] [address] Dr. Richa Cheema EO # 0.1 103/ul Normal 0.0-0.7 [facility] Comment on above: Performed By: #### M G, RENAL, URIC #### [facility] [address] [place] [address] Dr. Richa Cheema Eosinophils/100 WBC (Bld) 1.5 % Normal 0.9-7.0 [facility] Comment on above: Performed By: #### M G, RENAL, URIC #### [facility] [address] [place] [address] Dr. Richa Cheema Erythrocyte distribution width (RBC) [Ratio] 13.8 % Normal 11.0-15.0 [facility] Comment on above: Performed By: #### M G, RENAL, URIC #### [facility] [address] [place] [address] Dr. Richa Cheema Hematocrit (Bld) [Volume fraction] 38.4 % Normal 36.0-48.0 [facility] Comment on above: Performed By: #### M G, RENAL, URIC #### [facility] [address] [place] [address] Dr. Richa Cheema Hemoglobin (Bld) [Mass/Vol] 13.0 g/dL Normal 12.0-16.0 [facility] Comment on above: Performed By: #### M G, RENAL, URIC #### [facility] [address] [place] [address] Dr. Richa Cheema IG # 0.01 10e3/ul Normal 0.00-0.03 [facility] Comment on above: Performed By: #### M G, RENAL, URIC #### [facility] [address] [place] [address] Dr. Richa Cheema IG % 0.1 % Normal 0.0-0.5 [facility] Comment on above: Performed By: #### M G, RENAL, URIC #### [facility] [address] [address] [address] Richa Cheema LYMPH # 3.5 103/ul Normal 1.2-3.8 [facility] Comment on above: Performed By: #### M G, RENAL, URIC #### [facility] [address] [place] [address] Dr. Ricah Cheema Lymphocytes/100 WBC (Bld) 42.4 % Normal 20.5-60.0 [facility] Comment on above: Performed By: #### M G, RENAL, URIC #### [facility] [address] [place] [address] Dr. Richa Cheema MANUAL DIFF REQ NO Normal [facility] Comment on above: Performed By: #### M G, RENAL, URIC #### [facility] [address] [place] [address] Dr. Richa Cheema MCH (RBC) [Entitic mass] 31.8 pg Normal 26.7-34.0 [facility] Comment on above: Performed By: #### M G, RENAL, URIC #### [facility] [address] [place] [address] Dr. Richa Cheema MCHC (RBC) [Mass/Vol] 33.9 g/dL Normal 29.9-35.2 [facility] Comment on above: Performed By: #### M G, RENAL, URIC #### [facility] [address] [place] [address] Dr. Richa Cheema MCV (RBC) [Entitic vol] 93.9 fL Normal 81.0-99.0 [facility] Comment on above: Performed By: #### M G, RENAL, URIC #### [facility] [address] [place] [address] Dr. Richa Cheema MONO # 0.5 103/ul Normal 0.3-0.8 [facility] Comment on above: Performed By: #### M G, RENAL, URIC #### [facility] [address] [place] [address] Dr. Richa Cheema Monocytes/100 WBC (Bld) 6.6 % Normal 1.7-12.0 [facility] Comment on above: Performed By: #### M G, RENAL, URIC #### [facility] [address] [place] [address] Dr. Richa Cheema NEUT # 4.0 103/ul Normal 1.4-6.5 [facility] Comment on above: Performed By: #### M G, RENAL, URIC #### [facility] [address] [place] [address] Dr. Richa Cheema Neutrophils/100 WBC (Bld) 49.2 % Normal 43.0-75.0 [facility] Comment on above: Performed By: #### M G, RENAL, URIC #### [facility] [address] [place] [address] Dr. Richa Cheema Platelet mean volume (Bld) [Entitic vol] 10.9 fL Normal 9.5-13.5 [facility] Comment on above: Performed By: #### M G, RENAL, URIC #### [facility] [address] [place] [address] Dr. Richa Cheema PLT 193 103/ul Normal 150-450 [facility] Comment on above: Performed By: #### M G, RENAL, URIC #### [facility] [address] [place] [address] Dr. Richa Cheema RBC 4.09 106/ul Critically low 4.20-5.40 [facility] Comment on above: Performed By: #### M G, RENAL, URIC #### [facility] [address] [place] [address] Dr. Richa Cheema WBC 8.2 103/ul Normal 4.0-11.0 [facility] Comment on above: Performed By: #### M G, RENAL, URIC #### [facility] [address] [place] [address] Dr. Richa Cheema PROF 14(COMP METB)on 022 Albumin [Mass/Vol] 3.7 g/dL Normal 3.4-5.0 [facility] Comment on above: Performed By: #### C MP #### [facility] [address] [place] [address] Dr. Richa Cheema Albumin/Globulin [Mass ratio] 1.2 {ratio} Normal [facility] Comment on above: Performed By: #### C MP #### [facility] [address] [place] [address] Dr. Richa Cheema ALP [Catalytic activity/Vol] 105 U/L Normal 46-116 [facility] Comment on above: Performed By: #### C MP #### [facility] [address] [place] [address] Dr. Richa Cheema ALT [Catalytic activity/Vol] 18 U/L Normal 14-59 [facility] Comment on above: Performed By: #### C MP #### [facility] [address] [place] [address] Dr. Richa Cheema Anion gap [Moles/Vol] 11.4 mmol/L Normal [facility] Comment on above: Performed By: #### C MP #### [facility] [address] [place] [address] Dr. Richa Cheema AST [Catalytic activity/Vol] 12 U/L Critically low 15-37 [facility] Comment on above: Performed By: #### C MP #### [facility] [address] [place] [address] Dr. Richa Cheema Bilirubin [Mass/Vol] 0.3 mg/dL Normal 0.2-1.0 [facility] Comment on above: Performed By: #### C MP #### [facility] [address] [place] [address] Dr. Richa Cheema Calcium [Mass/Vol] 8.8 mg/dL Normal 8.5-10.1 [facility] Comment on above: Performed By: #### C MP #### [facility] [address] [place] [address] Dr. Richa Cheema Chloride [Moles/Vol] 104 mmol/L Normal 98-107 [facility] Comment on above: Performed By: #### C MP #### [facility] [address] [place] [address] Dr. Richa Cheema CO2 [Moles/Vol] 26.9 mmol/L Normal 21.0-32.[address] [facility] Comment on above: Performed By: #### C MP #### [facility] [address] [address] [address] Rihca Cheema Creatinine [Mass/Vol] 2.38 mg/dL Critically high 0.55-1.02 [facility] Comment on above: Performed By: #### C MP #### [facility] [address] [address] [address] Richa Cheema EGFR-AF BURUNDIAN 24 mL/min/1.73m2 Critically low >=60 [facility] Comment on above: Performed By: #### C MP #### [facility] [address] [address] [address] Richa Cheema EGFR-NON AF BURUNDIAN 20 mL/min/1.73m2 Critically low >=60 [facility] Comment on above: Performed By: #### C MP #### [facility] [address] [address] [address] Richa Cheema Globulin (S) [Mass/Vol] 3.1 g/dL Normal [facility] Comment on above: Performed By: #### C MP #### [facility] [address] [address] [address] Richa Cheema Glucose [Mass/Vol] 146 mg/dL Critically high 74-106 [facility] Comment on above: Performed By: #### C MP #### [facility] [address] [address] [address] Richa Cheema Potassium [Moles/Vol] 4.3 mmol/L Normal 3.5-5.1 [facility] Comment on above: Performed By: #### C MP #### [facility] [address] [address] [address] Richa Cheema Protein [Mass/Vol] 6.8 g/dL Normal 6.4-8.2 [facility] Comment on above: Performed By: #### C MP #### [facility] [address] [address] [address] Richa Cheema Sodium [Moles/Vol] 138 mmol/L Normal 136-145 [facility] Comment on above: Performed By: #### C MP #### [facility] [address] [address] [address] Richa Cheema Urea nitrogen [Mass/Vol] 31.0 mg/dL Critically high 7.0-18 .0 [facility] Comment on above: Performed By: #### C MP #### [facility] [address] [address] [address] Richa Cheema Urea nitrogen/Creatinine [Mass ratio] 13.0 mg/mg Normal [facility] Comment on above: Performed By: #### C MP #### [facility] [address] [place] [address] Dr. Richa Cheema PTH INTACTon 07-01-2022 PTH, Intact 93 pg/mL Critically high 15-[address] [facility] Comment on above: Performed By: #### H H #### [facility] [address] [place] [address] Dr. Richa Cheema VIT D 25-OH LABCORPon 2021 Vitamin D, 25-Hydroxy 31.8 ng/mL Normal 30.0-100.0 [facility] Comment on above: Result Comment: Emelyn min D deficiency has been defined by the [place] [employer] and an Endocrine Society practice guideline as a level of serum 25-OH vitamin D less than 20 ng/mL (1,2). The Endocrine Society went on to further define vitamin D insufficiency as a level between 21 and 29 ng/mL (2). 1. IOM ([place] of [employer]). 2010. Dietary reference intakes for calcium and D. [place]: The National Academies Press. 2. Reji MF, Caro [place], Leila-Omer MCMAHON, et al. Evaluation, treatment, and prevention of vitamin D deficiency: an Endocrine Society clinical practice guideline. JCEM. 2010; 96(7):1911-30. Performed By: #### M G, RENAL, URIC #### [facility] [address] [place] [address] Dr. Richa Cheema HEMOGRAM AND PLATELon 2021 Hematocrit (Bld) [Volume fraction] 39.4 % Normal 36.0-48.0 [facility] Comment on above: Performed By: #### H H #### [facility] [address] [place] [address] Dr. Richa Cheema Hemoglobin (Bld) [Mass/Vol] 13.1 g/dL Normal 12.0-16.0 [facility] Comment on above: Performed By: #### H H #### [facility] [address] [place] [address] Dr. Richa Cheema MCH (RBC) [Entitic mass] 31.6 pg Normal 26.7-34.0 [facility] Comment on above: Performed By: #### H H #### [facility] [address] [place] [address] Dr. Richa Cheema MCHC (RBC) [Mass/Vol] 33.2 g/dL Normal 29.9-35.2 [facility] Comment on above: Performed By: #### H H #### [facility] [address] [place] [address] Dr. Richa Cheema MCV (RBC) [Entitic vol] 94.9 fL Normal 81.0-99.0 [facility] Comment on above: Performed By: #### H H #### [facility] [address] [place] [address] Dr. Richa Cheema PLT 186 103/ul Normal 150-450 [facility] Comment on above: Performed By: #### H H #### [facility] [address] [place] [address] Dr. Richa Cheema RBC 4.15 106/ul Critically low 4.20-5.40 [facility] Comment on above: Performed By: #### H H #### [facility] [address] [place] [address] Dr. Richa Cheema WBC 9.5 103/ul Normal 4.0-11.0 [facility] Comment on above: Performed By: #### H H #### [facility] [address] [place] [address] Dr. Richa Cheema MAGNESIUMon 06-30-2022 Magnesium [Mass/Vol] 1.9 mg/dL Normal 1.8-2.4 [facility] Comment on above: Performed By: #### M G, RENAL, URIC #### [facility] [address] [address] [address] Richa Cheema RENAL FUNCTION PANELon 06-30 Albumin [Mass/Vol] 3.6 g/dL Normal 3.4-5.0 [facility] Comment on above: Performed By: #### M G, RENAL, URIC #### [facility] [address] [place] [address] Dr. Richa Cheema Calcium [Mass/Vol] 8.6 mg/dL Normal 8.5-10.1 [facility] Comment on above: Performed By: #### M G, RENAL, URIC #### [facility] [address] [place] [address] Dr. Richa Cheema Chloride [Moles/Vol] 105 mmol/L Normal 98-107 [facility] Comment on above: Performed By: #### M G, RENAL, URIC #### [facility] [address] [place] [address] Dr. Richa Cheema CO2 [Moles/Vol] 25.5 mmol/L Normal 21.0-32.0 [facility] Comment on above: Performed By: #### M G, RENAL, URIC #### [facility] [address] [place] [address] Dr. Richa Cheema Creatinine [Mass/Vol] 2.19 mg/dL Critically high 0.55-1.02 [facility] Comment on above: Performed By: #### M G, RENAL, URIC #### [facility] [address] [address] [address] Richa Cheema EGFR-AF B[place]DI[place] 26 mL/min/1.73m2 Critically low >=60 [facility] Comment on above: Performed By: #### M G, RENAL, URIC #### [facility] [address] [place] [address] Dr. Richa Cheema EGFR-NON AF [place] 22 mL/min/1.73m2 Critically low >=60 [facility] Comment on above: Performed By: #### M G, RENAL, URIC #### [facility] [address] [address] [address] Richa Cheema Glucose [Mass/Vol] 156 mg/dL Critically high 74-106 [facility] Comment on above: Performed By: #### M G, RENAL, URIC #### [facility] [address] [place] [address] Dr. Richa Cheema Phosphate [Mass/Vol] 3.8 mg/dL Normal 2.6-4.7 [facility] Comment on above: Performed By: #### M G, RENAL, URIC #### [facility] [address] [place] [address] Dr. Richa Cheema Potassium [Moles/Vol] 4.7 mmol/L Normal 3.5-5.1 [facility] Comment on above: Performed By: #### M G, RENAL, URIC #### [facility] [address] [place] [address] Dr. Richa Cheema Sodium [Moles/Vol] 139 mmol/L Normal 136-145 [facility] Comment on above: Performed By: #### M G, RENAL, URIC #### [facility] [address] [place] [address] Dr. Richa Cheema Urea nitrogen [Mass/Vol] 25.0 mg/dL Critically high 7.0-18 .0 [facility] Comment on above: Performed By: #### M G, RENAL, URIC #### [facility] [address] [place] [address] Dr. Richa Cheema UA RANDOM W/MICROSCOPICon BACTERIA NONE SEEN Normal NONE SEEN [facility] Comment on above: Performed By: #### H H #### [facility] [address] [place] [address] Dr. Richa Cheema Bilirubin Ql (U) Negative Normal NEGATIVE [facility] Comment on above: Performed By: #### H H #### [facility] [address] [place] [address] Dr. Richa Cheema CAST NONE SEEN Normal NONE SEEN [facility] Comment on above: Performed By: #### H H #### [facility] [address] [place] [address] Dr. Richa Cheema Clarity (U) CLEAR Normal CLEAR [facility] Comment on above: Performed By: #### H H #### [facility] [address] [place] [address] Dr. Richa Cheema Color (U) LT. YELLOW Normal YELLOW [facility] Comment on above: Performed By: #### H H #### [facility] [address] [place] [address] Dr. Richa Cheema Crystals LM Nom (Urine sed) NONE SEEN Normal NONE SEEN [facility] Comment on above: Performed By: #### H H #### [facility] [address] [place] [address] Dr. Richa Cheema Epithelial cells LM Ql (Urine sed) FEW Abnormal NONE SEEN /RARE [facility] Comment on above: Performed By: #### H H #### [facility] [address] [place] [address] Dr. Richa Cheema Glucose Ql (U) Negative Normal NEGATIVE [facility] Comment on above: Performed By: #### H H #### [facility] [address] [place] [address] Dr. Richa Cheema Hemoglobin Ql (U) Negative Normal NEGATIVE [facility] Comment on above: Performed By: #### H H #### [facility] [address] [place] [address] Dr. Richa Cheema Ketones Ql (U) Negative Normal NEGATIVE [facility] Comment on above: Performed By: #### H H #### [facility] [address] [place] [address] Dr. Richa Cheema LEUKOCYTES Negative Normal NEGATIVE [facility] Comment on above: Performed By: #### H H #### [facility] [address] [place] [address] Dr. Richa Cheema MUCOUS NONE SEEN Normal NONE SEEN [facility] Comment on above: Performed By: #### H H #### [facility] [address] [place] [address] Dr. Richa Cheema Nitrite Ql (U) Negative Normal NEGATIVE [facility] Comment on above: Performed By: #### H H #### [facility] [address] [place] [address] Dr. Richa Cheema pH (U) 7.5 [pH] Normal 5-9 [facility] Comment on above: Performed By: #### H H #### [facility] [address] [place] [address] Dr. Richa Cheema RBC NONE SEEN Abnormal 0-2 [facility] Comment on above: Performed By: #### H H #### [facility] [address] [place] [address] Dr. Richa Cheema SPEC GRAVITY 1.015 Normal 1.005-<=1.02 5 [facility] Comment on above: Performed By: #### H H #### [facility] [address] [place] [address] Dr. Richa Cheema UA PROTEIN 30 mg/dl Abnormal NEGATIVE/ TRACE [facility] Comment on above: Performed By: #### H H #### [facility] [address] [place] [address] Dr. Richa Cheema Urobilinogen Qn (U) 0.2 {Marley'U}/dL Normal 0.2 - 1. 0 [facility] Comment on above: Performed By: #### H H #### [facility] [address] [place] [address] Dr. Richa Cheema WBC NONE SEEN Normal NONE SEEN [facility] Comment on above: Performed By: #### H H #### [facility] [address] [place] [address] Dr. Richa Cheema URIC ACID SERUMon 06-30-2022 Urate [Mass/Vol] 5.4 mg/dL Normal 2.6-6.0 The [facility] Comment on above: Performed By: #### M G, RENAL, URIC #### [facility] [address] [place] [address] Dr. Richa Cheema URINE T PROTEIN CREAT RATIOo n 06-30-2022 Protein (U) [Mass/Vol] 72.9 mg/dL Critically high <=12.0 [facility] Comment on above: Performed By: #### U RTPCR #### [facility] [address] [place], [place] [address] Dr. Richa Cheema UR PROT CREAT RAT 0.90 Normal [facility] Comment on above: Performed By: #### U RTPCR #### [facility] [address] [place], [place] [address] Dr. Richa Cheema URINE CREAT 80.68 mg/dL Normal 20.00-300.00 [facility] Comment on above: Performed By: #### U RTPCR #### [facility] [address] [place], [place] [address] Dr. 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) (I77.810) HTN (hypertension) (401.9) (I10) Hyperlipemia (272.4) (E78.5) Shortness of breath at rest (786.05) (R06.02) Diabetes mellitus (250.00) (E11.9) Chronic kidney disease, stage 3 (585.3) (N18.30) Multiple myeloma (203.00) (C90.00) Never a smoker Pulmonary hypertension (416.8) (I27.20) Class 1 obesity with body mass index (BMI) of 30.0 to 30.9 in adult (278.00,V85.30) (E66.9,Z68.30) Orders Aortic valve regurgitation, nonrheumatic Continue with our present treatment plan.; Status:Complete - Retrospective Authorization; Done: [id number] Aortic valve regurgitation, nonrheumatic, HTN (hypertension) Basic Metabolic Panel; Status:Active - Retrospective Authorization; Requested for:[id number]; Class 1 obesity with body mass index (BMI) of 30.0 to 30.9 in adult Healthy Weight Tips; Status:Complete - Retrospective Authorization; Done: [id number] Some eating tips that can help you lose weight.; Status:Complete - Retrospective Authorization; Done: [id number] HTN (hypertension) Renew: amLODIPine Besylate 2.5 MG Oral Tablet; TAKE 1 TABLET DAILY Renew: Carvedilol 12.5 MG Oral Tablet; Take 1 tablet twice a day Hyperlipemia Renew: Atorvastatin Calcium 40 MG Oral Tablet; TAKE 1 TABLET DAILY ALT - Alanine Aminotransferase, Serum; Status:Active - Retrospective Authorization; Requested for:21Feb2023; AST; Status:Active - Retrospective Authorization; Requested for:21Feb2023; Lipid Panel; Status:Active - Retrospective Authorization; Requested for:21Feb2023; Persistent atrial fibrillation with RVR Renew: Aspirin EC 81 MG Oral Tablet Delayed Release; TAKE 1 TABLET DAILY Renew: Xarelto 15 MG Oral Tablet; Take 1 tablet daily SocHx: Never a smoker Tobacco Use Screening; Status:Complete; Done: 16Jun2022 Patient Instructions Please bring all medicines, vitamins, and herbal supplements with you when you come to the office. Prescriptions will not be filled unless you are compliant with your follow up appointments or have a follow up appointment scheduled as per instruction of your physician. Refills should be requested at the time of your visit. Follow up in 9 months Lab- 9 m Chief Complaint HAILEE TRIVEDI is being seen for a 9 month follow-up of. History of Present Illness Patient is here for follow-up continue management for previous evaluation of her persistent atrial fibrillation, previous evaluation for chest pain, hypertension and hyperlipidemia. Since last time I saw her she called on 1 occasion with complaint of chest pain I did advise her to undergo stress test but she elected not to pursue that. Since that call she reports she has been doing well. She denies complaint of chest pain, palpitation, lightheadedness, dizziness or syncope. She admits to limited exercise tolerance due to her orthopedic issues. ASSESSMENT: 1. Persistent atrial fibrillation. Currently in normal sinus rhythm. Currently on Xarelto with appropriate dose based on renal function 2. Remote evaluation for chest pain, resolved. No recurrence. She did have noninvasive assessment at [facility], which was negative. Couple of years ago. No further recurrence she had 1 episode recently and I did advise her to have a repeat stress test but she elected to defer that 3. Hypertension, controlled. 4. Hyperlipidemia, on atorvastatin and fish oil. Controlled recent lab noted and reviewed 5. Chronic kidney disease. stage of 3 achieving stage IV 6. Multiple myeloma. Patient report in remission 7. Prior presentation with cerebellar infarct. Currently on aspirin and Xarelto and followed by neurology 8. Moderate aortic regurgitation based on echocardiogram 9. Moderate obesity 10.There had been some notation in the chart that she had dilated aortic root. She could not be confirmed on a CT scan previously. She does have an echocardiogram that failed to demonstrate significant aortic root dilatation. Plan 1. Patient appears to be an appropriate therapy . Renal function seems to preclude the use of MARK inhibitor's or ARB 2. Patient was advised to remain on current therapy 3. The patient was counseled regarding losing weight, exercise and dietary modification 4. Risk, benefit and alternative anticoagulation reviewed with patient unkempt she understood and agreed. 5. We will see her back in the office in 9 months and plan to repeat her lab work prior to next office visit 6. Patient advised to notify of change in cardiac status or symptoms Current Meds Medication NameInstruction Acyclovir 400 MG Oral TabletTAKE 1 TABLET TWICE DAILY. amLODIPine Besylate 2.5 MG Oral TabletTAKE 1 TABLET DAILY. Aspirin EC 81 MG Oral Tablet Delayed ReleaseTAKE 1 TABLET DAILY. Atorvastatin Calcium 40 MG Oral TabletTAKE 1 TABLET DAILY. Carvedilol 12.5 MG Oral TabletTake 1 (more content not included)... Normal [facility] Tobacco Screening.on 022 Adult depression screening assessment No [facility] [employer] DO Work Phone: Fall risk assessment a) No falls within the last year [facility] [employer] DO Work Phone: Tobacco use status [facility] b) No M [facility] Pix[employer] DO Work Phone: FREE LIGHT CHAINS PLUS RATIO on 06-01-2022 Free [place] Lt Chains,S 24.1 mg/L Critically high 3.3-19.4 [facility] Comment on above: Performed By: #### M G, RENAL, URIC #### [facility] [address] [place], [place] [address] Dr. Richa Cheema Free [place]ambda Lt Chains,S 17.1 mg/L Normal 5.7-26.3 [facility] Comment on above: Performed By: #### M G, RENAL, URIC #### [facility] [address] [place], [place] [address] Dr. Richa Cheema [place]/Lambda Ratio, S 1.41 Normal 0.26-1.65 [facility] Comment on above: Performed By: #### M G, RENAL, URIC #### [facility] [address] [place], [place] [address] Dr. Richa Cheema Albumin [Mass/volume] in Ser um or PlasmaOrdered By: Claire Choi on 05-31-2022 Albumin [Mass/Vol] 3.5 g/dL 3.2-5.5 [facility] Basophils Auto (Bld) [#/Vol] Ordered By: Claire Choi on 05-31-2022 Basophils (Bld) [#/Vol] 0.1 10*3/uL 0.0-0.2 [facility] Basophils/100 WBC Auto (Bld) Ordered By: Claire Choi on 05-31-2022 Basophils/100 WBC (Bld) 0.9 % . F [facility] Blood hemoglobin measurement (mass/volume)Ordered By: Claire Choi on 05-31-2022 Hemoglobin (Bld) [Mass/Vol] 13.5 g/dL 11.8-15.4 [facility] Blood leukocytes automated c ount (number/volume)Ordered By: Claire Choi on 05-31-2022 WBC (Bld) [#/Vol] 9.6 10*3/uL 4.5-11.0 [facility] Creatinine and Glomerular fi ltration rate.predicted panel (S/P/Bld)Ordered By: Claire Choi on 05-31-2022 Creatinine [Mass/Vol] 2.38 mg/dL 0.44-1.03 [facility] Eosinophils Auto (Bld) [#/Vo l]Ordered By: Claire Choi on 05-31-2022 Eosinophils (Bld) [#/Vol] 0.1 10*3/uL 0.0-0.45 [facility] Eosinophils/100 WBC Auto (Bl d)Ordered By: Claire Choi on 05-31-2022 Eosinophils/100 WBC (Bld) 1.0 % . [facility] Erythrocyte distribution wid th Auto (RBC) [Ratio]Ordered By: Claire Choi on 05-31-2022 Erythrocyte distribution width (RBC) [Ratio] 13.8 % 11.9-15.3 [facility] Estimated glomerular filtrat ion rate (GFR) non- AmericanOrdered By: Claire Choi on 05-31-2022 GFR/1.73 sq M.predicted among non-blacks MDRD (S/P/Bld) [Vol rate/Area] 20 mL/Min [facility] Globulin Calc (S) [Mass/Vol] Ordered By: Claire Choi on 05-31-2022 Globulin (S) [Mass/Vol] 2.7 g/dL [facility] Hematocrit Auto (Bld) [Volum e fraction]Ordered By: Claire Choi on 05-31-2022 Hematocrit (Bld) [Volume fraction] 41.0 % 34.0-46.4 [facility] Laboratory - Hematology and Cell countsOrdered By: Claire Choi on 05-31-2022 Nucleated RBC/100 WBC (Bld) [Ratio] 0.1 % 0-0.5 [facility] Lymphocytes Auto (Bld) [#/Vo l]Ordered By: Claire Choi on 05-31-2022 Lymphocytes (Bld) [#/Vol] 3.1 10*3/uL 1.00-4.8 [facility] Lymphocytes/100 WBC Auto (Bl d)Ordered By: Claire Choi on 05-31-2022 Lymphocytes/100 WBC (Bld) 32.7 % . [facility] MCH Auto (RBC) [Entitic mass ]Ordered By: Claire Choi on 05-31-2022 MCH (RBC) [Entitic mass] 31.0 pg 24.7-34.3 [facility] MCHC Auto (RBC) [Mass/Vol]Or dered By: Claire Choi on 05-31-2022 MCHC (RBC) [Mass/Vol] 33.0 g/dL 32.0-35.0 [facility] MCV Auto (RBC) [Entitic vol] Ordered By: Claire Choi on 05-31-2022 MCV (RBC) [Entitic vol] 94.0 fL 80-100 F [facility] Monocytes Auto (Bld) [#/Vol] Ordered By: Claire Choi on 05-31-2022 Monocytes (Bld) [#/Vol] 0.6 10*3/uL 0.0-0.8 [facility] Monocytes/100 WBC Auto (Bld) Ordered By: Claire Choi on 05-31-2022 Monocytes/100 WBC (Bld) 6.0 % . [facility] Neutrophils Auto (Bld) [#/Vo l]Ordered By: Claire Choi on 05-31-2022 Neutrophils (Bld) [#/Vol] 5.7 10*3/uL 1.8-7.7 [facility] Neutrophils/100 WBC Auto (Bl d)Ordered By: Claire Choi on 05-31-2022 Neutrophils/100 WBC (Bld) 59.4 % . [facility] No Panel InformationOrdered By: Claire Choi on 05-31-2022 Estimated GFR () 24 mL/Min [facility] Comment on above: GFR estimated refere nce range: According to KDOQI guidelines, <60 ml/min/1.73m2 is sufficient to diagnose a patient with chronic kidney disease. Pharmacy Creatinine Clearance (Chem 20.55 [facility] PROTEIN ELECTROPHERESISon Albumin [Mass/Vol] 3.8 g/dL Normal 2.9-4.4 [facility] Comment on above: Performed By: #### P RTELEC #### [facility] [address] [place] [address] Dr. Richa Cheema Albumin/Globulin [Mass ratio] 1.5 {ratio} Normal 0.7-1.7 [facility] Comment on above: Performed By: #### P RTELEC #### [facility] [address] [place] [address] [address] Richa Cheema Zpzuj-1-Liqphopa 0.2 g/dL Normal 0.0-0.[address] [facility] Comment on above: Performed By: #### P RTELEC #### [facility] [address] [place] [address] [address] Richa Cheema Nvzfe-6-Qdkosbts 0.9 g/dL Normal 0.4-1.[address] [facility] Comment on above: Performed By: #### P RTELEC #### [facility] [address] [place] [address] Dr. Richa Cheema Beta Globulin 0.9 g/dL Normal 0.7-1.3 [facility] [place] Comment on above: Performed By: #### P RTELEC #### [facility] [address] [place] [address] Dr. Richa Cheema Gamma Globulin 0.6 g/dL Normal 0.4-1.8 [facility] Comment on above: Performed By: #### P RTELEC #### [facility] [address] [place] [address] Dr. Richa Cheema Globulin (S) [Mass/Vol] 2.5 g/dL Normal 2.2-3.9 [facility] Comment on above: Performed By: #### P RTELEC #### [facility] [address] [place] [address] Dr. Richa Cheema M-Krystian Not Observed Normal Not Observed [facility] Comment on above: Performed By: #### P RTELEC #### [facility] [address] [place] [address] Dr. Richa Cheema PDF . Normal [facility] Comment on above: Performed By: #### P RTELEC #### [facility] [address] [place] [address] Dr. Richa Cheema Please note: Comment Normal [facility] Comment on above: Result Comment: Prot ein electrophoresis scan will follow via computer, mail, or mule driver delivery. Performed By: #### P RTELEC #### [facility] [address] [place] [address] Dr. Richa Cheema Protein [Mass/Vol] 6.3 g/dL Normal 6.0-8.5 [facility] Comment on above: Performed By: #### P RTELEC #### [facility] [address] [place] [address] Dr. Richa Cheema Platelet mean volume Auto (B ld) [Entitic vol]Ordered By: Claire Choi on 05-31-2022 Platelet mean volume (Bld) [Entitic vol] 9.4 fL 6.3-10.7 [facility] Platelets Auto (Bld) [#/Vol] Ordered By: Claire Choi on 05-31-2022 Platelets (Bld) [#/Vol] 254 10*3/uL 150-450 [facility] Protein [Mass/volume] in Ser um or PlasmaOrdered By: Claire Choi on 05-31-2022 Protein [Mass/Vol] 6.2 g/dL 6.1-7.9 [facility] RBC Auto (Bld) [#/Vol]Ordere d By: Claire Choi on 05-31-2022 RBC (Bld) [#/Vol] 4.37 10*6/uL 3.60-5.00 [facility] Serum or plasma alanine genao otransferase measurement without P-5'-P (enzymatic activiOrdered By: Claire Choi on 05-31-2022 ALT No additional P-5'-P [Catalytic activity/Vol] 15 U/L 10-60 [facility] Serum or plasma albumin/glob ulin mass ratioOrdered By: Claire Choi on 05-31-2022 Albumin/Globulin [Mass ratio] 1.3 {ratio} [facility] Serum or plasma alkaline bree sphatase measurement (enzymatic activity/volume)Ordered By: Claire Choi on 05-31-2022 ALP [Catalytic activity/Vol] 90 U/L 32-92 [facility] Serum or plasma aspartate am inotransferase measurement (enzymatic activity/volume)Ordered By: Claire Choi on 05-31-2022 AST [Catalytic activity/Vol] 19 U/L 10-42 [facility] Serum or plasma calcium leonor urement (mass/volume)Ordered By: Claire Choi on 05-31-2022 Calcium [Mass/Vol] 8.9 mg/dL 8.2-10.2 [facility] Serum or plasma chloride trin[place] surement (moles/volume)Ordered By: Claire Choi on 05-31-2022 Chloride [Moles/Vol] 106 mmol/L 95-114 [facility] Serum or plasma glucose leonor urement (mass/volume)Ordered By: Claire Choi on 05-31-2022 Glucose [Mass/Vol] 151 mg/dL 70-100 [facility] Comment on above: ADA recommended refe rence range Random Glucose Reference Range is dependent on time and content of last meal. Glucose of more than 200 mg/dL in a nonstressed, ambulatory subject supports the diagnosis of Diabetes Mellitus. Serum or plasma potassium me asurement (moles/volume)Ordered By: Claire Choi on 05-31-2022 Potassium [Moles/Vol] 4.9 mmol/L 3.5-5.1 [facility] Serum or plasma sodium measu rement (moles/volume)Ordered By: Claire Choi on 05-31-2022 Sodium [Moles/Vol] 135 mmol/L 136-146 [facility] Serum or plasma total biliru bin measurement (mass/volume)Ordered By: Claire Choi on 05-31-2022 Bilirubin [Mass/Vol] 0.7 mg/dL 0.3-1.2 [facility] Serum or plasma total carbon dioxide measurement (moles/volume)Ordered By: Claire Choi on 05-31-2022 CO2 [Moles/Vol] 20.9 mmol/L 22.0-30.0 [facility] Serum or plasma urea nitroge n measurement (mass/volume)Ordered By: Claire Choi on 05-31-2022 Urea nitrogen [Mass/Vol] 28 mg/dL 08-06 [facility] CBC AUTO DIFFon 05-28-2022 BASO # 0.0 103/ul Normal 0.0-0.1 [facility] Comment on above: Performed By: #### M G, RENAL, URIC #### [facility] [address] [place], [place] [address] Dr. Richa Cheema Basophils/100 WBC (Bld) 0.4 % Normal 0.2-2.0 [facility] Comment on above: Performed By: #### M G, RENAL, URIC #### [facility] [address] [place] [address] [address] Richa Cheema EO # 0.1 103/ul Normal 0.0-0.7 [facility] Comment on above: Performed By: #### M G, RENAL, URIC #### [facility] [address] [place] [address] Dr. Richa Cheema Eosinophils/100 WBC (Bld) 1.2 % Normal 0.9-7.0 [facility] Comment on above: Performed By: #### M G, RENAL, URIC #### [facility] [address] [place] [address] Dr. Richa Cheema Erythrocyte distribution width (RBC) [Ratio] 13.5 % Normal 11.0-15.0 [facility] Comment on above: Performed By: #### M G, RENAL, URIC #### [facility] [address] [place] [address] Dr. Richa Cheema Hematocrit (Bld) [Volume fraction] 41.3 % Normal 36.0-48.0 [facility] Comment on above: Performed By: #### M G, RENAL, URIC #### [facility] [address] [place] [address] Dr. Richa Cheema Hemoglobin (Bld) [Mass/Vol] 13.5 g/dL Normal 12.0-16.0 [facility] Comment on above: Performed By: #### M G, RENAL, URIC #### [facility] [address] [place] [address] Dr. Richa Cheema IG # 0.02 10e3/ul Normal 0.00-0.03 [facility] Comment on above: Performed By: #### M G, RENAL, URIC #### [facility] [address] [place] [address] Dr. Richa Cheema IG % 0.2 % Normal 0.0-0.5 [facility] Comment on above: Performed By: #### M G, RENAL, URIC #### [facility] [address] [place] [address] Dr. Richa Cheema LYMPH # 2.6 103/ul Normal 1.2-3.8 [facility] Comment on above: Performed By: #### M G, RENAL, URIC #### [facility] [address] [place] [address] Dr. Richa Cheema Lymphocytes/100 WBC (Bld) 32.0 % Normal 20.5-60.0 [facility] Comment on above: Performed By: #### M G, RENAL, URIC #### [facility] [address] [place] [address] Dr. Richa Cheema MANUAL DIFF REQ NO Normal [facility] Comment on above: Performed By: #### M G, RENAL, URIC #### [facility] [address] [place] [address] Dr. Richa Cheema MCH (RBC) [Entitic mass] 31.0 pg Normal 26.7-34.0 [facility] Comment on above: Performed By: #### M G, RENAL, URIC #### [facility] [address] [place] [address] Dr. Richa Cheema MCHC (RBC) [Mass/Vol] 32.7 g/dL Normal 29.9-35.2 [facility] Comment on above: Performed By: #### M G, RENAL, URIC #### [facility] [address] [place] [address] Dr. Richa Cheema MCV (RBC) [Entitic vol] 94.7 fL Normal 81.0-99.0 [facility] Comment on above: Performed By: #### M G, RENAL, URIC #### [facility] [address] [place] [address] Dr. Richa Cheema MONO # 0.5 103/ul Normal 0.3-0.8 [facility] Comment on above: Performed By: #### M G, RENAL, URIC #### [facility] [address] [place] [address] Dr. Richa Cheema Monocytes/100 WBC (Bld) 5.7 % Normal 1.7-12.0 [facility] Comment on above: Performed By: #### M G, RENAL, URIC #### [facility] [address] [place] [address] Dr. Richa Cheema NEUT # 4.9 103/ul Normal 1.4-6.5 [facility] Comment on above: Performed By: #### M G, RENAL, URIC #### [facility] [address] [place] [address] Dr. Richa Cheema Neutrophils/100 WBC (Bld) 60.5 % Normal 43.0-75.0 [facility] Comment on above: Performed By: #### M G, RENAL, URIC #### [facility] [address] [address] [address] Richa Cheema Platelet mean volume (Bld) [Entitic vol] 10.6 fL Normal 9.5-13.5 [facility] Comment on above: Performed By: #### M G, RENAL, URIC #### [facility] [address] [place] [address] Dr. Richa Cheema PLT 229 103/ul Normal 150-450 [facility] Comment on above: Performed By: #### M G, RENAL, URIC #### [facility] [address] [place] [address] Dr. Richa Cheema RBC 4.36 106/ul Normal 4.20-5.40 [facility] Comment on above: Performed By: #### M G, RENAL, URIC #### [facility] [address] [place] [address] Dr. Richa Cheema WBC 8.1 103/ul Normal 4.0-11.0 [facility] Comment on above: Performed By: #### M G, RENAL, URIC #### [facility] [address] [place] [address] Dr. Richa Cheema GLYCOHEMOGLOBIN A1Con 2021 ADA RECOMMENDATION SEE BELOW Normal [facility] Comment on above: Result Comment: ADA RECOMMENDED LIMIT 4.0 - 6.0 ADA THERAPEUTIC TARGET < 7.0 ACTION SUGGESTED > 7.0 Performed By: #### H H #### [facility] [address] [place] [address] Dr. Richa Cheema Glucose [Mass/Vol] 166 mg/dL Normal [facility] Comment on above: Performed By: #### H H #### [facility] [address] [address] [address] Richa Cheema HbA1c (Bld) [Mass fraction] 7.4 % Critically high 4.5-6.2 [facility] Comment on above: Performed By: #### H H #### [facility] [address] [address] [address] Richa Cheema PROF 14(COMP METB)on 022 Albumin [Mass/Vol] 3.4 g/dL Normal 3.4-5.0 [facility] Comment on above: Performed By: #### M G, RENAL, URIC #### [facility] [address] [address] [address] Richa Cheema Albumin/Globulin [Mass ratio] 1.0 {ratio} Normal [facility] Comment on above: Performed By: #### M G, RENAL, URIC #### [facility] [address] [address] [address] Richa Cheema ALP [Catalytic activity/Vol] 111 U/L Normal 46-116 [facility] Comment on above: Performed By: #### M G, RENAL, URIC #### [facility] [address] [address] [address] Richa Cheema ALT [Catalytic activity/Vol] 21 U/L Normal 14-59 [facility] Comment on above: Performed By: #### M G, RENAL, URIC #### [facility] [address] [address] [address] Richa Cheema Anion gap [Moles/Vol] 14.1 mmol/L Normal [facility] Comment on above: Performed By: #### M G, RENAL, URIC #### [facility] [address] [address] [address] Richa Cheema AST [Catalytic activity/Vol] 13 U/L Critically low 15-37 [facility] Comment on above: Performed By: #### M G, RENAL, URIC #### [facility] [address] [address] [address] Richa Cheema Bilirubin [Mass/Vol] 0.3 mg/dL Normal 0.2-1.0 [facility] Comment on above: Performed By: #### M G, RENAL, URIC #### [facility] [address] [address] [address] Richa Cheema Calcium [Mass/Vol] 9.1 mg/dL Normal 8.5-10.1 [facility] Comment on above: Performed By: #### M G, RENAL, URIC #### [facility] [address] [place] [address] Dr. Richa Cheema Chloride [Moles/Vol] 107 mmol/L Normal 98-107 [facility] Comment on above: Performed By: #### M G, RENAL, URIC #### [facility] [address] [place] [address] Dr. Richa Cheema CO2 [Moles/Vol] 23.7 mmol/L Normal 21.0-32.[address] [facility] Comment on above: Performed By: #### M G, RENAL, URIC #### [facility] [address] [place] [address] Dr. Richa Cheema Creatinine [Mass/Vol] 2.56 mg/dL Critically high 0.55-1.02 [facility] Comment on above: Performed By: #### M G, RENAL, URIC #### [facility] [address] [place] [address] Dr. Richa Cheema EGFR-AF BURUNDIAN 22 mL/min/1.73m2 Critically low >=60 [facility] Comment on above: Performed By: #### M G, RENAL, URIC #### [facility] [address] [place] [address] Dr. Richa Cheema EGFR-NON AF BURUNDIAN 18 mL/min/1.73m2 Critically low >=60 [facility] Comment on above: Performed By: #### M G, RENAL, URIC #### [facility] [address] [place] [address] Dr. Richa Cheema Globulin (S) [Mass/Vol] 3.4 g/dL Normal T [facility] Comment on above: Performed By: #### M G, RENAL, URIC #### [facility] [address] [place] [address] Dr. Richa Cheema Glucose [Mass/Vol] 211 mg/dL Critically high 74-106 T [facility] Comment on above: Performed By: #### M G, RENAL, URIC #### [facility] [address] [address] [address] Richa Cheema Potassium [Moles/Vol] 4.8 mmol/L Normal 3.5-5.1 [facility] Comment on above: Performed By: #### M G, RENAL, URIC #### [facility] [address] [address] [address] Richa Cheema Protein [Mass/Vol] 6.8 g/dL Normal 6.4-8.2 [facility] Comment on above: Performed By: #### M Dalia, RENAL, URIC #### [facility] [address] [address] [address] Richa Cheema Sodium [Moles/Vol] 140 mmol/L Normal 136-145 [facility] Comment on above: Performed By: #### M Dalia, RENAL, URIC #### [facility] [address] [address] [address] Richa Cheema Urea nitrogen [Mass/Vol] 29.0 mg/dL Critically high 7.0-18 .0 [facility] Comment on above: Performed By: #### M Dalia, RENAL, URIC #### [facility] [address] [address] [address] Richa Cheema Urea nitrogen/Creatinine [Mass ratio] 11.3 mg/mg Normal [facility] Comment on above: Performed By: #### M Dalia, RENAL, URIC #### [facility] [address] [address] [address] Richa Cheema [facility]on SARS-CoV-2 (COVID-19) RNA RADHA+probe Ql (Unsp spec) Detected Critically abnormal NOT DETECTED [facility] Comment on above: Result Comment: This test is not yet approved or cleared by the [place] FDA. When there are no FDA-approved or cleared tests available, and other criteria are met, FDA can make tests available under an emergency access mechanism called an Emergency Use Authorization (EUA). The EUA for this test is supported by the Duct Maker of Health and Human Service's (HHS's) declaration that circumstances exist to justify the emergency use of in vitro diagnostics for the detection and/or diagnosis of the virus that causes COVID-19. This EUA will remain in effect (meaning this test can be used) for the duration of the COVID-19 declaration justifying emergency of IVDs, unless it is terminated or revoked by FDA (after which the test may no longer be used). Performed By: #### [facility] #### [facility] [address] [address] [address] Richa Cheema XR LSPINE MIN 4 VIEWSon XR LSPINE MIN 4 VIEWS EXAMINATION: XR LSPINE MIN 4 VIEWS HISTORY: Musculoskeletal symptom ; acute bilateral leg weakness, no known injury COMPARISON: No relevant comparison available. FINDINGS: BONES: Mild right convex curvature lumbar spine. No fracture or spondylolisthesis. Mild-moderate degenerative facet arthropathy L4-5, L5-S1. DISC SPACES: Moderate narrowing L2-3. PARASPINOUS: Negative. No paraspinous abnormality is seen. OTHER: Negative. IMPRESSION: 1. No appreciable acute abnormality. 2. Focal areas of mild-moderate degenerative changes of the lumbar spine. Electronically authenticated by: DIANN IBANEZ Date: 2022-04-14 11:25 Normal [facility] CT HEAD WO CONon 04-07-2022 CT HEAD WO CON EXAMINATION: CT HEAD WO CON HISTORY: Musculoskeletal symptom , left leg weakness for 3 days, chronic pain at base of skull COMPARISON: MRI brain 08/10/2018 TECHNIQUE: Axial CT images were obtained without IV contrast. Dose reduction techniques were achieved by using automated exposure control and/or adjustment of mA and/or kV according to patient size and/or use of iterative reconstruction technique. FINDINGS: BRAIN: Within posterior inferior aspect of right cerebellum is a 2.1 cm area of chronic encephalomalacic changes from remote infarction. No edema, hemorrhage, mass, acute infarction, or inappropriate atrophy. CSF SPACES: No hydrocephalus, subarachnoid hemorrhage, or mass. Appropriate for age. SKULL: No fracture, mass, or other significant visible lesion. SINUSES: No significant mucosal thickening or fluid on the limited views. ORBITS: No appreciable abnormality on the limited views. OTHER: Negative IMPRESSION: 1. No intracranial hemorrhage, mass, or CT evidence of acute ischemia. 2. 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 3. Age consistent atrophy and mild chronic small vessel ischemic change. Electronically authenticated by: DIANN IBANEZ Date: 2022-04-07 15:47 Normal [facility] [id number]#[id number]:127 Normal [facility] Patient Educationon 03-08-20 22 Patient Education Calorie Counting for Weight Loss Calories are units of energy. Your body needs a certain amount of calories from food to keep you going throughout the day. When you eat more calories than your body needs, your body stores the extra calories as fat. When you eat fewer calories than your body needs, your body davies fat to get the energy it needs. Calorie counting means keeping track of how many calories you eat and drink each day. Calorie counting can be helpful if you need to lose weight. If you make sure to eat fewer calories than your body needs, you should lose weight. Ask your health care provider what a healthy weight is for you. For calorie counting to work, you will need to eat the right number of calories in a day in order to lose a healthy amount of weight per week. A dietitian can help you determine how many calories you need in a day and will give you suggestions on how to reach your calorie goal. ? A healthy amount of weight to lose per week is usually 1?2 lb (0.5?0.9 kg). This usually means that your daily calorie intake should be reduced by 500?750 calories. ? Eating 1,200 ? 1,500 calories per day can help most women lose weight. ? Eating 1,500 ? 1,800 calories per day can help most men lose weight. What is my plan? My goal is to have calories per day. If I have this many calories per day, I should lose around pounds per week. What do I need to know about calorie counting? In order to meet your daily calorie goal, you will need to: ? Find out how many calories are in each food you would like to eat. Try to do this before you eat. ? Decide how much of the food you plan to eat. ? Write down what you ate and how many calories it had. Doing this is called keeping a food log. To successfully lose weight, it is important to balance calorie counting with a healthy lifestyle that includes regular activity. Aim for 150 minutes of moderate exercise (such as walking) or 75 minutes of vigorous exercise (such as running) each week. Where do I find calorie information? The number of calories in a food can be found on a Nutrition Facts label. If a food does not have a Nutrition Facts label, try to look up the calories online or ask your dietitian for help. Remember that calories are listed per serving. If you choose to have more than one serving of a food, you will have to multiply the calories per serving by the amount of servings you plan to eat. For example, the label on a package of bread might say that a serving size is 1 slice and that there are 90 calories in a serving. If you eat 1 slice, you will have eaten 90 calories. If you eat 2 slices, you will have eaten 180 calories. How do I keep a food log? Immediately after each meal, record the following information in your food log: ? What you ate. Don't forget to include toppings, sauces, and other extras on the food. ? How much you ate. This can be measured in cups, ounces, or number of items. ? How many calories each food and drink had. ? The total number of calories in the meal. Keep your food log near you, such as in a small notebook in your pocket, or use a mobile baljit or website. Some programs will calculate calories for you and show you how many calories you have left for the day to meet your goal. What are some calorie counting tips? ? Use your calories on foods and drinks that will fill you up and not leave you hungry: ? Some examples of foods that fill you up are nuts and nut butters, vegetables, lean proteins, and high-fiber foods like whole grains. High-fiber foods are foods with more than 5 g fiber per serving. ? Drinks such as sodas, specialty coffee drinks, alcohol, and juices have a lot of calories, yet do not fill you up. ? Eat nutritious foods and avoid empty calories. Empty calories are calories you get from foods or beverages that do not have many vitamins or protein, such as candy, sweets, and soda. It is better to have a nutritious high-calorie food (such as an avocado) than a food with few nutrients (such as a bag of chips). ? Know how many calories are in the foods you eat most often. This will help you calculate calorie counts faster. ? Pay attention to calories in drinks. Low-calorie drinks include water and unsweetened drinks. ? Pay attention to nutrition labels for low fat or fat free foods. These foods sometimes have the same amount of calories or more calories than the full fat versions. They also often have added sugar, starch, or salt, to make up for flavor that was removed with the fat. ? Find a way of tracking calories that works for you. Get creative. Try different apps or programs if writing down calories does not work for you. What are some portion control tips? ? Know how many calories are in a serving. This will help you know how many servings of a certain food you can have. ? Use a measuring cup to measure serving sizes. You could also try ken (more content not included)... Normal [facility] Urology Office/Clinic Noteon 03-08-2022 Urology Office/Clinic Note Chief Complaint pt here for 1yr f/u with kub HPI Staff pt is here for 6mo f/u with KUB. Recent KUB done on 12/11/21 shows no definite urinary tract calculi. previous dx: kidney stone and nocturia. pt says the other day she was sitting in her chair and she got the urge to go and when she got up it just came down and this was the first time it happened. pt says she feels like she has to go, but it doesn't come out. PVR-107ml Dysuria: _denies Incomplete bladder emptying: _yes Hematuria: _denies visibly Frequency: _denies Urgency: _sometimes Nocturia: _1x Stream: _steady Leaking: _denies Post void dripping: _denies Wearing pads/ Depends: _denies Urge incontinence: _yes 1x Stress incontinence: _denies Incontinence without Sensory Awareness: _denies Abdominal pain: _denies Flank pain: _starts in left side, radiates to middle of back Sexual complaints: _ History of Present Illness I have reviewed and verified the staff HPI to be accurate for this encounter. Review of Systems PHQ Score Initial Depression Screen Score: 0 ROS - Provider Constitutional: denies weight loss, denies hot flashes. Eyes: mild eye problems. Wears Glasses. Gastrointestinal: denies nausea, denies vomiting. Cardiovascular: denies chest pain or angina. Integumentary: no dryness Musculoskeletal: denies musculoskeletal symptoms. ENMT: denies otolaryngeal symptoms. Respiratory: no shortness of breath. Heme/Lymph: denies easy bleeding tendency, denies easy bruising tendency. Psychiatric: no confusion, no anxiety. Genitourinary: denies vaginal discharge, mild incontinence, denies dysuria, denies hematuria, denies urinary frequency. Physical Exam Vitals & Measurements HR: 69(Peripheral) BP: 113/52 HT: 167 cm HT: 167.0 cm WT: 84.5 kg WT: 84.5 kg BMI: 30.3 General Appearance: alert , no acute distress, well nourished, well developed female. Genitourinary: bladder nonpalpable, no flank pain. Assessment/Plan 1. Nocturia (R35.1: Nocturia) Mild 1-2 times per night 2. Kidney stones (N20.0: Calculus of kidney) KUB done 12/11/21 is negative for stones, pt c/o of back pain and discomfort on the left side, ? if she is passing a stone fragment. NONE seen on KUB today. Patient states the Oracit liquid costs $126 per month for this medication. She was unable to use Good RX card for this medication. She also takes Sodium Bicarb. Patient to call nephrology to see if there is another alternative cheaper for her. S/p Left stone manip done 02/19/21 due to a 9mm and two 3mm left ureteral stones. Current KUB done on 08/24/21 shows stable 4mm left renal calculi. No ureteral stone visualized. Repeat Metabolic w/up done on 03/09/21 shows low volume and low citric acid. Pt. continues taking Oracit oral solution by Dr. Suarez. Advised pt. to continue increased fluid intake. All questions/concerns were discussed. Pt. to call the office if she encounters any issues prior. Pt. acknowledges understanding. 3. Glycosuria (R81: Glycosuria) UA done today shows 100 glucose, UA is negative for blood, infection.. 4. Incomplete emptying of bladder (R33.9: Retention of urine, unspecified) PVR done today was 107ml. she is to do double voids q3 during the day. 5. Urge incontinence (N39.41: Urge incontinence) mild. She had 1 accident recently. She thinks maybe she waited too long. She is to do times voids q 3 hours during waking hours to prevent this happening in the future. I have reviewed the previous health history and record for this patient with Dr. Park. f/u in 10 months with KUB Follow-up With When Contact Information XAVIER VELAZQUEZ, Tyree Rivers, URL In 10 months 01/08/2023 EST [facility] [address], [place] [address] [phone] Additional Instructions: 10 month fu w KUB Patient Education Calorie Counting for Weight Loss Kidney Stones, [id number] IMaryse, personally scribed for Dr. Park on 03/08/2022 11:42:06. . Documentation recorded by the scribebakari, accurately reflects the services(s) I performed and decisions made by me. Authenticated by Dr. Park on 03/08/2022 11:44:17. Problem List/Past Medical History Ongoing Anticoagulated Diabetes mellitus Glycosuria History of kidney stones Hyperlipidemia Hypertension Kidney stone Microhematuria Multiple myeloma Nocturia Proteinuria Stroke Historical No qualifying data Procedure/Surgical History Lithotripsy (02/19/2021), ESWL of kidney (01/24/2020), ESWL - Extracorporeal shockwave lithotripsy for renal calculus (03/09/2018), ESWL - Extracorporeal shockwave lithotripsy for renal calculus (02/09/2018), Cataract Extraction with IOL placement - OS. (10/05/2016), Cystoscopic removal of ureteric stent (07/26/2012), Cystoscopy and retrograde pyelography (07/14/2012), Cholecystectomy, Ganglionectomy of tendon sheath of wrist, Hemorrhoidectomy, Hysterectomy. Medications acyclovi (more content not included)... Normal [facility] Comment on above: Result Comment: Elec tronically Signed By: Tyree PARK MD\.br\Date and Time Signed: 03/08/22 11:44 EDT\.br\Electronically Co-Signed By: Maryse Peng\.br\Date and Time Co-Signed: 03/08/22 11:42 EDT Physician Orderon 03-05-2022 Physician Order [id number] D1#[id number]:127 Normal [facility] - Chemistry and C hemistry - challengeOrdered By: Akin Suarez on 09-07-2021 Magnesium [Mass/Vol] 2.0 mg/dL 1.6-2.6 [facility] No Panel InformationOrdered By: Akin Suarez on 09-07-2021 25-Hydroxy Vitamin D Total 38.5 ng/mL 30-100 [facility] Comment on above: VITAMIN D STATUS 25( [place])VITAMIN D RANGE (ng/mL) Deficient <20 Insufficient 20 to <30 Sufficient 30 to 100 Reference: Reji PLEITEZ,Caro RUSH, Marguerite MCMAHON, et al. Evaluation,treatment, and prevention of vitamin D deficiency; an Endocrine Society clinical practice guideline. JCEM. 2010; 96(7):1911-30. VITAMIN D STATUS 25( [place])VITAMIN D RANGE (ng/mL) Deficient <20 Insufficient 20 to <30Sufficient 30 to 100Reference: Caro Vallejo, Marguerite MCMAHON, et al. Evaluation,treatment, and prevention of vitamin D deficiency; an Endocrine Society clinical practice guideline. JCEM. 2010; 96(7):1911-30. Phosphate [Mass/volume] in S amanda or PlasmaOrdered By: Akin Suarez on 09-07-2021 Phosphate [Mass/Vol] 3.7 mg/dL 2.5-4.6 [facility] Serum or plasma intact parat hyroid hormone measurement (mass/volume)Ordered By: Akin Suarez on 09-07-2021 Parathyrin.intact [Mass/Vol] 137.7 pg/mL [facility] Serum or plasma uric acid me asurement (mass/volume)Ordered By: Akin Suarez on 09-07-2021 Urate [Mass/Vol] 4.8 mg/dL 2.6-7.2 [facility] Tobacco Screening.on 021 Fall risk assessment a) No falls within the last year [facility] [address] DO Work Phone: Tobacco use status [facility] b) No [facility] -[facility] [address] DO Work Phone: CT biopsyOrdered By: Mike sweet on 06-09-2021 CT biopsy 24 Hours [facility] IgA [Mass/volume] in Serum o r PlasmaOrdered By: Mike Bradley on 06-09-2021 IgA [Mass/Vol] 65 mg/dL 64-422 [facility] IgG [Mass/volume] in Serum o r PlasmaOrdered By: Mike Bradley on 06-09-2021 IgG [Mass/Vol] 654 mg/dL [phone] [facility] IgM [Mass/volume] in Serum o r PlasmaOrdered By: Mike Bradley on 06-09-2021 IgM [Mass/Vol] 23 mg/dL 26-217 [facility] Comment on above: Result confirmed on concentration. Performed at: [place] [address] Emergency [facility] Medical Director: Elpidio Delgado PhD, Phone: [phone] Result confirmed on concentration.Performed at: [facility] [id number] Director: Elpidio Delgado PhD, Phone: [phone] Immunofixation for UrineOrde red By: Mike Bradley on 06-09-2021 Interpretation Immunofixation (U) [Interp] See comment . [facility] Comment on above: Bence Jenkins Protein positive; kappa type. Performed at: [facility] [id number] Emergency Medicine Medical Director: Elpidio Delgado PhD, Phone: [phone] Bence Jenkins Protein positive; kappa type.Performed at: [address], [place], [place] [id number] Director: Elpidio Delgado PhD, Phone: [phone] No Panel InformationOrdered By: Mike Bradley on 06-09-2021 Serum Immunofixation See comment . [facility] Comment on above: Immunofixation shows IgG monoclonal protein with kappa light chain specificity. Please note that samples from patients receiving DARZALEX(R) (daratumumab) treatment can appear as an IgG kappa and mask a complete response. If this patient is receiving IRMA, this HAILEE assay interference can be removed by ordering test number [id number] Immunofixation, Daratumumab- Specific, Serum and submitting a new sample for testing or by calling the lab to add this test to the current sample. Immunofixation shows IgG monoclonal protein with kappalight chain specificity.Please note that samples from patients receivingDARZALEX(R) (daratumumab) treatment can appear as an IgGkappa and mask a complete response. If this patient isreceiving IRMA, this HAILEE assay interference can be removedby ordering test number [id number]- Immunofixation, Daratumumab-Specific, Serum and submitting a new sample for testing orby calling the lab to add this test to the current sample. Urine Albumin 24 Hours 33.2 % . [facility] Urine Mmxav-4-Lyjrdgzy 4.3 % . [facility] Urine Kwktw-1-Vxxkaxawu 16.0 % . [facility] Urine Beta Globulin 36.7 % . [facility] Urine Gamma Globulin 9.8 % . [facility] Urine IEP M-Krystian % 24 Hr 21.1 % Not Observ ed [facility] Urine Random Prot Electrophor Note See comment . [facility] Comment on above: Protein electrophore sis scan will follow via computer, mail, or mule driver delivery. Protein electrophore sis scan will follow via computer,mail, or mule driver delivery. Protein [Mass/time] in 24 ho ur UrineOrdered By: Mike Bradley on 06-09-2021 Protein (24H U) [Mass/Time] 125 mg/24 hr 30-150 [facility] Protein [Mass/volume] in Uri neOrdered By: Mike Bradley on 06-09-2021 Protein (U) [Mass/Vol] 8.5 mg/dL Not Estab. [facility] Protein.monoclonal [Mass/junaid e] in 24 hour Urine by ElectrophoresisOrdered By: Mike Bradley on 06-09-2021 Protein.monoclonal Elph (24H U) [Mass/Time] 26.5 mg/24 hr Not Observed [facility] Urine volume measurementOrde red By: Mike Bradley on 06-09-2021 Specimen volume (U) 1475 ml [facility] Urine culture routineon 02-12 Bacteria identified Cx Nom (U) Pseudomonas aeruginosa [facility] Automated epithelial cells c ount in urine sediment (number/area)on 02-24-2021 Epithelial cells Auto (Urine sed) [#/Area] 0-1 [HPF] 0-2 [facility] Automated erythrocytes count in urine sediment (number/area)on 02-24-2021 RBC Auto (Urine sed) [#/Area] Innumerable [HPF] 0-4 [facility] Automated leukocytes count i n urine sediment (number/area)on 02-24-2021 WBC Auto (Urine sed) [#/Area] 0-1 [HPF] 0-4 [facility] Automated urine specific gra vity by refractometryon 02-24-2021 Specific gravity Refractometry automated (U) [Rel density] 1.009 1.001-1.030 [facility] Comment on above: Rechecked by refract ometer Bilirubin Test strip Ql (U)o n 02-24-2021 Bilirubin Ql (U) See comment Negative [facility] Comment on above: Unable to obtain acc urate result due to color interference. Color Auto (U)on 02-24-2021 Color (U) Red Yellow [facility] Creatinine [Mass/volume] in Urineon 02-24-2021 Creatinine (U) [Mass/Vol] 77.2 mg/dL [facility] Comment on above: No reference range e stablished Ketones Auto test strip (U) [Mass/Vol]on 02-24-2021 Ketones (U) [Mass/Vol] See comment Negative [facility] Comment on above: Unable to obtain acc urate result due to color interference. Nitrite Test strip Ql (U)on 02-24-2021 Nitrite Ql (U) See comment Negative [facility] Comment on above: Unable to obtain acc urate result due to color interference. Protein Auto test strip (U) [Mass/Vol]on 02-24-2021 Protein (U) [Mass/Vol] See comment Negative [facility] Comment on above: Unable to obtain acc urate result due to color interference. Urine bacteria detection by automated methodon 02-24-2021 Bacteria Auto Ql (U) None seen None Seen [facility] Urine clarity by refractomet ry automatedon 02-24-2021 Clarity Refractometry automated (U) Turbid Clear [facility] Urine culture routineon 02-12 Bacteria identified Cx Nom (U) Pseudomonas aeruginosa [facility] Bacteria identified Cx Nom (U) Pseudomonas aeruginosa [facility] Urine glucose measurement by automated test strip (mass/volume)on 02-24-2021 Glucose Auto test strip (U) [Mass/Vol] See comment Normal [facility] Comment on above: Unable to obtain acc urate result due to color interference. Urine hemoglobin detection b y automated test stripon 02-24-2021 Hemoglobin Auto test strip Ql (U) See comment Negative [facility] Comment on above: Unable to obtain acc urate result due to color interference. Urine leukocyte esterase det ection by automated test stripon 02-24-2021 Leukocyte esterase Auto test strip Ql (U) See comment Negative [facility] Comment on above: Unable to obtain acc urate result due to color interference. Urine protein/creatinine rat ioon 02-24-2021 Protein/Creatinine (U) [Ratio] 2098 mg/g{Cre} 0-200 [facility] Urobilinogen Auto test strip (U) [Mass/Vol]on 02-24-2021 Urobilinogen (U) [Mass/Vol] See comment Normal [facility] Comment on above: Unable to obtain acc urate result due to color interference. pH Auto test strip (U)on pH (U) See comment 5.0-9.0 [facility] Comment on above: Unable to obtain acc urate result due to color interference. Laboratory - Chemistry and C hemistry - challengeon 10-28-2020 Cobalamin (Vitamin B12) [Mass/Vol] 506 pg/mL 180-914 [facility] Laboratory - Hematology and Cell countson 10-28-2020 WBC (Bld) [#/Vol] 10.0 10*3/uL 4.5-11.0 [facility] Laboratory - Urinalysison Hyaline casts LM Ql (Urine sed) 0-8 [LPF] 0-8 [facility] Serum intrinsic factor block ing antibody detection by radioimmunoassay (MAGGIE)on 02-28-2019 Intrinsic factor blocking Ab MAGGIE Ql (S) 0.9 AU/mL 0.0-1.1 [facility] Comment on above: Performed at: [facility] [address] [id number] Emergency Medicine Medical Director: Britton Valente MD, Phone: [phone] Performed at: [facility] [address] [id number] Director: Britton Valente MD, Phone: [phone] Serum parietal cell antibody assay (units/volume)on 02-28-2019 Parietal cell Ab Qn (S) 1.9 Units 0.0-20.0 F [facility] Comment on above: Negative 0.0 - 20.0 Equivocal 20.1 - 24.9 Positive >24.9 Parietal Cell Antibodies are found in 90% of patients with pernicious anemia and 30% of first degree relatives with pernicious anemia. Performed at: [facility] [address] [id number] Emergency Medicine Medical Director: Elpidio Delgado PhD, Phone: [phone] Negative 0.0 - 20.0 Equivocal 20.1 - 24.9 Positive >24.9Parietal Cell Antibodies are found in 90% of patientswith pernicious anemia and 30% of first degreerelatives with pernicious anemia.Performed at: [facility] [address] [id number] Director: Elpidio Delgado PhD, Phone: [phone] Glucose Glucometer (BldC) [M ass/Vol]on 01-02-2019 Glucose [Mass/Vol] 133 mg/dL [facility] Comment on above: Random Glucose Refer ence Range is dependent on time and content of last meal. Glucose of more than 200 mg/dL in a nonstressed, ambulatory subject supports the diagnosis of Diabetes Mellitus. Glucose mean value [Mass/vol ume] in Blood Estimated from glycated hemoglobinon 01-02-2019 Average glucose Estimated from glycated hemoglobin (Bld) [Mass/Vol] 183 mg/dL [facility] HbA1c (Bld)on 01-02-2019 HbA1c (Bld) [Mass fraction] 8.0 % 4.3-5.6 [facility] Comment on above: Increased risk for d iabetes: 5.7 - 6.4 diabetes: >6.4 glycemic control for adults with diabetes: <7.0 Increased risk for d iabetes: 5.7 - 6.4diabetes: >6.4glycemic control for adults with diabetes: <7.0 IgA [Mass/volume] in Serum o r Plasmaon 10-13-2018 IgA [Mass/Vol] 65 mg/dL 64-422 [facility] IgG [Mass/volume] in Serum o r Plasmaon 10-13-2018 IgG [Mass/Vol] 487 mg/dL 700-1600 [facility] IgM [Mass/volume] in Serum o r Plasmaon 10-13-2018 IgM [Mass/Vol] 38 mg/dL 26-217 [facility] Comment on above: Performed at: [facility] [place] [address] [place], [place] [id number] Emergency Medicine Medical Director: Elpidio Delgado PhD, Phone: [phone] Performed at: [facility] [address] [place], [place] [id number] Director: Elpidio Delgado PhD, Phone: [phone] Serum or plasma 25-hydroxyca lciferol measurement (mass/volume)on 09-15-2017 25-hydroxyvitamin D2 [Mass/Vol] <1.0 ng/mL . [facility] Serum or plasma calcidiol me asurement (mass/volume)on 09-15-2017 25-hydroxyvitamin D3 [Mass/Vol] 65 ng/mL . [facility] Comment on above: Performed at: [facility] [address] [place], [place] [id number] Emergency Medicine Medical Director: Marcelino Estes MD, Phone: [phone] Performed at: [facility] [id number] [place], [place] [id number] Director: Marcelino Estes MD, Phone: [phone] Vital Signs Date Time Vital Sign Value Performing Clinician Facility 12-01-2023 11:00-0500 Body height 166.55 cm Curt Clark Other [facility] Other 12-01-2023 11:00-0500 Body mass index (BMI) [Ratio] 32.77 kg/m2 Curt Clark Other [facility] Other 12-01-2023 11:00-0500 Body weight 90.9 kg Curt Clark Other [facility] Other 12-01-2023 11:00-0500 Diastolic blood pressure 76 mm[Hg] Curt Clark Other [facility] Other 12-01-2023 11:00-0500 Systolic blood pressure 125 mm[Hg] Curt Clark Other [facility] Other 11-02-2023 10:34-0500 Body height 162.[address] 11-02-2023 10:34-0500 Body mass index (BMI) [Ratio] 33.3 kg/m2 [address] 11-02-2023 10:34-0500 Body weight [address] 11-02-2023 10:34-0500 Diastolic blood pressure 74 mm[Hg] [address] 11-02-2023 10:34-0500 Systolic blood pressure 140 mm[Hg] [address] 10-04-2023 14:04-0500 Body height 167.6 cm Elicia Rhodes MD Work Phone: [facility] 10-04-2023 14:04-0500 Body mass index (BMI) [Ratio] 31.31 kg/m2 Elicia Rhodes MD Work Phone: [facility] 10-04-2023 14:04-0500 Body weight 88 kg Elicia Rhodes MD Work Phone: [facility] 10-04-2023 14:04-0500 Diastolic blood pressure 68 mm[Hg] Elicia Rhodes MD Work Phone: [facility] 10-04-2023 14:04-0500 Heart rate 72 /min Elicia Rhodes MD Work Phone: [facility] 10-04-2023 14:04-0500 Systolic blood pressure 138 mm[Hg] Elicia Rhodes MD Work Phone: [facility] 09-26-2023 14:00-0500 Body height 166.55 cm Curt Clark Other [facility] Other 09-26-2023 14:00-0500 Body mass index (BMI) [Ratio] 31.43 kg/m2 Curt Clark Other [facility] Other 09-26-2023 14:00-0500 Body weight 87.18 kg Curt Clark Other [facility] Other 09-26-2023 14:00-0500 Diastolic blood pressure 73 mm[Hg] Curt Clark Other [facility] Other 09-26-2023 14:00-0500 SaO2% (BldA) [Mass fraction] 98 % Curt Clark Other [facility] Other 09-26-2023 14:00-0500 Systolic blood pressure 122 mm[Hg] Curt Clark Other [facility] Other 09-13-2023 15:45-0400 Body height 166.55 cm Curt Clark Other [facility] Other 09-13-2023 15:45-0400 Body mass index (BMI) [Ratio] 31.39 kg/m2 Curt Clark Other [facility] Other 09-13-2023 15:45-0400 Body temperature 97.1 [degF] Curt Clark Other [facility] Other 09-13-2023 15:45-0400 Body weight 87.09 kg Curt Clark Other [facility] Other 09-13-2023 15:45-0400 Diastolic blood pressure 75 mm[Hg] Curt Clark Other [facility] Other 09-13-2023 15:45-0400 Systolic blood pressure 148 mm[Hg] Curt Clark Other [facility] Other 08-31-2023 13:30-0400 Body height 166.55 cm Nehemias Atlantic II Other [facility] Other 08-31-2023 13:30-0400 Body mass index (BMI) [Ratio] 31.56 kg/m2 Nehemias Atlantic II Other [facility] Other 08-31-2023 13:30-0400 Body weight 87.54 kg Nehemias Atlantic II Other [facility] Other 07-19-2023 10:44-0400 Body height 167.64 cm MD Curt Clark Work Phone: [facility] 07-19-2023 10:40-0400 Body temperature 97.5 [degF] MD Curt Clark Work Phone: [facility] 07-19-2023 10:40-0400 Body weight 85.95 kg MD Curt Clark Work Phone: [facility] 07-19-2023 10:40-0400 Diastolic blood pressure 69 mm[Hg] MD Curt Clark Work Phone: [facility] 07-19-2023 10:40-0400 Heart rate 79 /min MD Curt Clark Work Phone: [facility] 07-19-2023 10:40-0400 Respiratory rate 20 /min MD Curt Clark Work Phone: [facility] 07-19-2023 10:40-0400 SaO2% (BldA) [Mass fraction] 98 % MD Curt Clark Work Phone: [facility] 07-19-2023 10:40-0400 Systolic blood pressure 134 mm[Hg] MD Curt Clark Work Phone: [facility] 06-24-2023 13:30-0400 Body height 166.55 cm Curt Clark Other [facility] Other 06-24-2023 13:30-0400 Body mass index (BMI) [Ratio] 30.58 kg/m2 Curt Clark Other [facility] Other 06-24-2023 13:30-0400 Body weight 84.82 kg Curt Clark Other [facility] Other 06-24-2023 13:30-0400 Diastolic blood pressure 79 mm[Hg] Curt Clark Other [facility] Other 06-24-2023 13:30-0400 SaO2% (BldA) [Mass fraction] 97 % Curt Clark Other [facility] Other 06-24-2023 13:30-0400 Systolic blood pressure 127 mm[Hg] Curt Clark Other [facility] Other 06-23-2023 11:20-0400 Body height 166.55 cm Akin Lopez Other [facility] Other 06-23-2023 11:20-0400 Body temperature 96.5 [degF] Akin Lopez Other [facility] Other 06-23-2023 11:20-0400 Diastolic blood pressure 82 mm[Hg] Akin Lopez Other [facility] Other 06-23-2023 11:20-0400 Respiratory rate 20 /min Akin Lopez Other [facility] Other 06-23-2023 11:20-0400 SaO2% (BldA) [Mass fraction] 98 % Akin Lopez Other [facility] Other 06-23-2023 11:20-0400 Systolic blood pressure 149 mm[Hg] Akin Lopez Other [facility] Other 04-26-2023 11:30-0400 Body height 166.37 cm Curt Clark Other [facility] Other 04-26-2023 11:30-0400 Body mass index (BMI) [Ratio] 31.13 kg/m2 Curt Clark Other [facility] Other 04-26-2023 11:30-0400 Body weight 86.18 kg Curt Clark Other [facility] Other 04-26-2023 11:30-0400 Diastolic blood pressure 68 mm[Hg] Curt Clark Other [facility] Other 04-26-2023 11:30-0400 Systolic blood pressure 109 mm[Hg] Curt Clark Other [facility] Other 03-23-2023 14:10-0400 Body height 167.64 cm Curt Clark Work Phone: [facility] [address] DO Work Phone: 03-23-2023 14:10-0400 Body mass index (BMI) [Ratio] 31.15 kg/m2 Curt Clark Work Phone: [facility] DO Work Phone: 03-23-2023 14:10-0400 Body surface area Derived from formula 1.97 m2 Curt Clark Work Phone: [facility] [employer] [employer] DO Work Phone: 03-23-2023 14:10-0400 Body weight 87.54 kg Curt Clark Work Phone: [facility] DO Work Phone: 03-23-2023 14:10-0400 Diastolic blood pressure 68 mm[Hg] Curt Clark Work Phone: [facility] DO Work Phone: 03-23-2023 14:10-0400 Heart rate 68 /min Curt Clark Work Phone: [facility] DO Work Phone: 03-23-2023 14:10-0400 Systolic blood pressure 102 mm[Hg] Curt Clark Work Phone: [facility] DO Work Phone: 03-15-2023 12:00-0400 Body height 166.37 cm Curt Clark Other [facility] Other 03-15-2023 12:00-0400 Body mass index (BMI) [Ratio] 31.95 kg/m2 Curt Clark Other [facility] Other 03-15-2023 12:00-0400 Body weight 88.45 kg Curt Clark Other [facility] Other 03-15-2023 12:00-0400 Diastolic blood pressure 60 mm[Hg] Curt Clark Other [facility] Other 03-15-2023 12:00-0400 Systolic blood pressure 124 mm[Hg] Curt Clark Other [facility] Other 02-21-2023 11:06-0400 75.6 1 Curt Clark Work Phone: [facility] DO Work Phone: Comment on above: [facility] 01-11-2023 10:37-0500 Body temperature 97.8 [degF] MD Curt Clark Work Phone: [facility] 01-11-2023 10:37-0500 Body weight 88.2 kg MD Curt Clark Work Phone: [facility] 01-11-2023 10:37-0500 Diastolic blood pressure 63 mm[Hg] MD Curt Clark Work Phone: [facility] 01-11-2023 10:37-0500 Heart rate 66 /min MD Curt Clark Work Phone: [facility] 01-11-2023 10:37-0500 Respiratory rate 16 /min MD Curt Clark Work Phone: [facility] 01-11-2023 10:37-0500 SaO2% (BldA) [Mass fraction] 97 % MD Curt Clark Work Phone: [facility] 01-11-2023 10:37-0500 Systolic blood pressure 139 mm[Hg] MD Curt Clark Work Phone: [facility] 01-10-2023 11:11-0500 Blood Pressure Location Tyree PARK [facility] 01-10-2023 11:11-0500 Diastolic blood pressure 84 mm[Hg] Tyree PARK [facility] 01-10-2023 11:11-0500 Heart rate 80 /min Tyree PARK [facility] 01-10-2023 11:11-0500 Respiratory rate 16 /min Tyree PARK [facility] 01-10-2023 11:11-0500 Systolic blood pressure 136 mm[Hg] Tyree PARK [facility] 12-22-2022 12:40-0500 Body height 166.37 cm Akin Lopez Other [facility] Other 12-22-2022 12:40-0500 Body mass index (BMI) [Ratio] 31.53 kg/m2 Akin Lopez Other [facility] Other 12-22-2022 12:40-0500 Body temperature 96.5 [degF] Akin Lopez Other [facility] Other 12-22-2022 12:40-0500 Body weight 87.27 kg Akin Lopez Other [facility] Other 12-22-2022 12:40-0500 Diastolic blood pressure 78 mm[Hg] Akin Lopez Other [facility] Other 12-22-2022 12:40-0500 Respiratory rate 18 /min Akin Lopez Other [facility] Other 12-22-2022 12:40-0500 SaO2% (BldA) [Mass fraction] 98 % Akin Lopez Other [facility] Other 12-22-2022 12:40-0500 Systolic blood pressure 122 mm[Hg] Akin Lopez Other [facility] Other 12-09-2022 11:45-0500 Body height 166.37 cm Curt Clark Other [facility] Other 12-09-2022 11:45-0500 Body mass index (BMI) [Ratio] 31.95 kg/m2 Curt Clark Other [facility] Other 12-09-2022 11:45-0500 Body weight 88.45 kg Curt Clark Other [facility] Other 12-09-2022 11:45-0500 Diastolic blood pressure 62 mm[Hg] Curt Clark Other [facility] Other 12-09-2022 11:45-0500 SaO2% (BldA) [Mass fraction] 96 % Curt Clark Other [facility] Other 12-09-2022 11:45-0500 Systolic blood pressure 128 mm[Hg] Curt Clark Other [facility] Other 07-13-2022 09:12-0400 Body weight 84.5 kg MD Curt Clark Work Phone: [facility] 07-13-2022 08:58-0400 Body height 167.64 cm MD Curt Clark Work Phone: [facility] 07-13-2022 08:58-0400 Body temperature 98.6 [degF] MD Curt Clark Work Phone: [facility] 07-13-2022 08:58-0400 Diastolic blood pressure 74 mm[Hg] MD Curt Clark Work Phone: [facility] 07-13-2022 08:58-0400 Heart rate 89 /min MD Curt Clark Work Phone: [facility] 07-13-2022 08:58-0400 Respiratory rate 18 /min MD Curt Clark Work Phone: [facility] 07-13-2022 08:58-0400 SaO2% (BldA) [Mass fraction] 97 % MD Curt Clark Work Phone: [facility] 07-13-2022 08:58-0400 Systolic blood pressure 126 mm[Hg] MD Curt Clark Work Phone: [facility] 07-07-2022 10:20-0400 Body height 167.64 cm Akin Lopez Other [facility] Other 07-07-2022 10:20-0400 Body mass index (BMI) [Ratio] 30.24 kg/m2 Akin Lopez Other [facility] Other 07-07-2022 10:20-0400 Body temperature 96.7 [degF] Akin Lopez Other [facility] Other 07-07-2022 10:20-0400 Body weight 85 kg Akin Lopez Other [facility] Other 07-07-2022 10:20-0400 Diastolic blood pressure 76 mm[Hg] Akin Lopez Other [facility] Other 07-07-2022 10:20-0400 Respiratory rate 18 /min Akin Lopez Other [facility] Other 07-07-2022 10:20-0400 SaO2% (BldA) [Mass fraction] 98 % Akin Lopez Other [facility] Other 07-07-2022 10:20-0400 Systolic blood pressure 132 mm[Hg] Akin Lopez Other [facility] Other 06-16-2022 14:48-0400 Body height 167.64 cm Curt Clark Work Phone: [facility] [employer] DO Work Phone: 06-16-2022 14:48-0400 Body mass index (BMI) [Ratio] 30.18 kg/m2 Curt Clark Work Phone: [facility] [employer] 250 DO Work Phone: 06-16-2022 14:48-0400 Body surface area Derived from formula 1.94 m2 Curt Clark Work Phone: [facility] [employer] DO Work Phone: 06-16-2022 14:48-0400 Body weight 84.82 kg Curt Clark Work Phone: [facility] [employer] 250 DO Work Phone: 06-16-2022 14:48-0400 Diastolic blood pressure 58 mm[Hg] Curt Clark Work Phone: [facility] DO Work Phone: 06-16-2022 14:48-0400 Heart rate 70 /min Curt Clark Work Phone: [facility] 250 DO Work Phone: 06-16-2022 14:48-0400 Systolic blood pressure 112 mm[Hg] Curt Clark Work Phone: [facility] DO Work Phone: 03-08-2022 10:57-0400 Blood Pressure Location Tyree PARK [facility] 03-08-2022 10:57-0400 Diastolic blood pressure 52 mm[Hg] Tyree PARK [facility] 03-08-2022 10:57-0400 Heart rate 69 /min Tyree PARK [facility] 03-08-2022 10:57-0400 Systolic blood pressure 113 mm[Hg] Tyreemurali PARK [facility] 01-14-2022 13:20-0500 Body height 167.64 cm Akin Lopez Other [facility] Other 01-14-2022 13:20-0500 Body mass index (BMI) [Ratio] 30.34 kg/m2 Akin Lopez Other [facility] Other 01-14-2022 13:20-0500 Body weight 85.28 kg Akin Lopez Other [facility] Other 01-14-2022 13:20-0500 Diastolic blood pressure 86 mm[Hg] Akin Lopez Other [facility] Other 01-14-2022 13:20-0500 Respiratory rate 18 /min Akin Lopez Other [facility] Other 01-14-2022 13:20-0500 SaO2% (BldA) [Mass fraction] 99 % Akin Lopez Other [facility] Other 01-14-2022 13:20-0500 Systolic blood pressure 146 mm[Hg] Akin Lopez Other [facility] Other 09-30-2021 11:40-0500 Body height 167.64 cm Akin Lopez Other [employer] Other 09-30-2021 11:40-0500 Body mass index (BMI) [Ratio] 31.12 kg/m2 Akin Lopez Other [employer] Other 09-30-2021 11:40-0500 Body temperature 96.7 [degF] Akin Lopez Other [employer] Other 09-30-2021 11:40-0500 Body weight 87.45 kg Akin Lopez Other [employer] Other 09-30-2021 11:40-0500 Diastolic blood pressure 72 mm[Hg] Akin Lopez Other [employer] Other 09-30-2021 11:40-0500 Respiratory rate 18 /min Akin Lopez Other [employer] Other 09-30-2021 11:40-0500 SaO2% (BldA) [Mass fraction] 96 % Akin Lopez Other [employer] Other 09-30-2021 11:40-0500 Systolic blood pressure 111 mm[Hg] Akin Lopez Other [employer] Other 09-22-2021 10:38-0500 89.4 1 Curt Clark Work Phone: [facility] [employer] 250 DO Work Phone: Comment on above: [facility] 08-25-2021 14:44-0400 Body height 167.64 cm Curt Clark Work Phone: [facility] [employer] 250 DO Work Phone: 08-25-2021 14:44-0400 Body mass index (BMI) [Ratio] 30.67 kg/m2 Curt Clark Work Phone: [facility] [employer] 250 DO Work Phone: 08-25-2021 14:44-0400 Body surface area Derived from formula 1.96 m2 Curt Clark Work Phone: [facility] [employer] 250 DO Work Phone: 08-25-2021 14:44-0400 Body weight 86.18 kg Curt Clark Work Phone: [facility] [employer] 250 DO Work Phone: 08-25-2021 14:44-0400 Diastolic blood pressure 74 mm[Hg] Curt Clark Work Phone: [facility] [employer] 250 DO Work Phone: 08-25-2021 14:44-0400 Heart rate 68 /min Curt Clark Work Phone: [facility] 250 DO Work Phone: 08-25-2021 14:44-0400 Systolic blood pressure 126 mm[Hg] Curt Clark Work Phone: [facility] 250 DO Work Phone: Encounters Encounter Date Encounter Type Care Provider Facility Start: 12-15-2023 ambulatory Curt Clark Facility :[facility] Start: 12-02-2023 End: 12-02-2023 ambulatory Curt Clark Other [employer] Other Start: 12-02-2023 Telephone encounter Curt Amber [facility] Start: 12-01-2023 End: 12-01-2023 ambulatory Curt Clark Other [employer] Other Start: 12-01-2023 Office outpatient vi sit 25 minutes Curt Clark [facility] Start: 11-02-2023 End: 11-03-2023 ambulatory [facility] Start: 11-02-2023 End: 11-02-2023 Subsequent hospital visit by physician Jodi Wolf Echo/Vasc Room 2 [facility] Comment on above: Aortic valve regurgi tation, nonrheumatic; Ascending aorta dilation (CMS/HCC); Pulmonary hypertension (CMS/HCC) Start: 10-17-2023 End: 10-17-2023 ambulatory Curt Amber Other [employer] Other Start: 10-17-2023 Telephone encounter Curt Amber [facility] Start: 10-13-2023 End: 10-13-2023 ambulatory Curt Amber Other [employer] Other Start: 10-13-2023 Telephone encounter Curt Clark [facility] Start: 10-04-2023 End: 10-04-2023 ambulatory ELICIA RHODES [facility] Ambulatory Start: 10-04-2023 End: 10-04-2023 Office outpatient visit 25 minutes Elicia Rhodes MD Work Phone: [facility] Comment on above: Persistent atrial fi brillation with RVR (CMS/HCC) (Primary Dx); Aortic valve regurgitation, nonrheumatic; Ascending aorta dilation (CMS/HCC); Essential hypertension; Pulmonary hypertension (CMS/HCC); Stage 3a chronic kidney disease (CMS/HCC) Start: 09-26-2023 End: 09-26-2023 ambulatory Curt Clark Other [employer] Other Start: 09-26-2023 Office outpatient vi sit 15 minutes Curt Clark [facility] Start: 09-13-2023 End: 09-13-2023 ambulatory Curt Clark Other [facility] [employer] Other Start: 09-13-2023 Office outpatient vi sit 15 minutes Curt Clark [facility] Start: 08-31-2023 Office outpatient ne w 45 minutes Nehemias Fernandez II [facility] Start: 08-31-2023 End: 08-31-2023 ambulatory MD Curt Clark Work Phone: [facility] Work Phone: Start: 08-31-2023 End: 08-31-2023 Patient encounter procedure MD Curt Clark Work Phone: [facility] Start: 07-21-2023 Rx Renewal Curt Clark Work Phone: [facility] 250 DO Work Phone: Start: 07-19-2023 End: 07-19-2023 ambulatory MD Curt Clark Work Phone: [facility] Work Phone: Start: 07-19-2023 End: 07-19-2023 Registered Recurring MD Curt [facility] Work Phone: Start: 07-19-2023 Registered Recurring MD Curt Clark [facility]: [facility] Work Phone: Start: 07-15-2023 End: 07-15-2023 ambulatory Curt Clark Other [employer] Other Start: 07-15-2023 Telephone encounter Curt Clark [facility] Start: 07-08-2023 End: 07-08-2023 ambulatory Curt Clark Other [employer] Other Start: 07-08-2023 Telephone encounter Curt Clark [facility] Start: 07-04-2023 Rx Renewal Curt Clark Work Phone: [facility] 250 DO Work Phone: Start: 06-27-2023 End: 06-27-2023 ambulatory Curt Clark Other [employer] Other Start: 06-27-2023 Telephone encounter Curt Amber [facility] Start: 06-24-2023 End: 06-24-2023 ambulatory Curt Clark Other [employer] Other Start: 06-24-2023 Office outpatient vi sit 25 minutes Curt Clark [facility] Start: 06-23-2023 End: 06-23-2023 ambulatory Akin Lopez Other [employer] Other Start: 06-23-2023 Office outpatient vi sit 15 minutes Akin Lopez [facility] Start: 06-20-2023 End: 06-20-2023 ambulatory Curt Clark Other [employer] Other Start: 06-20-2023 Telephone encounter Curt Clark [facility] Start: 06-13-2023 Rx Renewal Curt Clark Work Phone: [facility] 250 DO Work Phone: Start: 05-04-2023 End: 05-04-2023 ambulatory Curt Clark Other [facility] [employer] Other Start: 05-04-2023 Telephone encounter Curt Clark [facility] Start: 04-26-2023 End: 04-26-2023 ambulatory Curt Clark Other [facility] [employer] Other Start: 04-26-2023 Office outpatient vi sit 25 minutes Curt Clark [facility] Start: 03-23-2023 Office outpatient vi sit 25 minutes Curt Clark Work Phone: [facility] 250 DO Work Phone: Start: 03-23-[address] Curt Clark Facility: Start: 03-16-2023 Telephone encounter Curt Clark [facility] Start: 03-16-2023 End: 03-17-[address] CURT CLARK [facility] [employer] Other Start: 03-15-2023 End: 03-15-2023 ambulatory Curt Clark Other [place] [employer] Other Start: 03-15-2023 Office outpatient vi sit 15 minutes Curt Clark [facility] Start: 02-21-2023 End: 02-22-2023 ambulatory Tyree PARK Facility:[id number] Start: 01-11-2023 End: 01-11-2023 ambulatory MD Curt Clark Work Phone: [facility] Work Phone: Start: 01-11-2023 End: 01-11-2023 Registered Recurring MD Curt Clark Work Phone: [facility] Work Phone: Start: 01-10-2023 End: 01-11-2023 ambulatory Tyree PARK Facility:[facility] [place] Start: 01-10-2023 End: 01-10-2023 Patient encounter procedure Tyree PARK [facility] Start: 01-06-2023 End: 01-07-[address] CURT CLARK Facility:[facility] Start: 12-22-2022 End: 12-22-2022 ambulatory Akin Lopez Other [employer] Other Start: 12-22-2022 Office outpatient vi sit 25 minutes Akin Lopez [facility] Start: 12-14-2022 End: 12-15-2022 ambulatory AKIN LOPEZ Facility:[facility] Start: 12-09-2022 End: 12-09-2022 ambulatory Curt Clark Other [employer] Other Start: 12-09-2022 Office outpatient vi sit 25 minutes Curt Clark [facility] Start: 08-09-[address] CURT CLARK Facil ity:[facility] Start: 07-13-2022 End: 07-13-2022 Registered Recurring MD Curt Clark [facility] Start: 07-12-2022 End: 07-13-2022 ambulatory CLAIRE CHOI Facility:[facility] Start: 07-07-2022 End: 07-07-2022 ambulatory Akin Lopez Other [place] [employer] Other Start: 07-07-2022 Office outpatient vi sit 25 minutes Akin Lopez [facility] Start: 06-30-2022 End: 07-01-2022 ambulatory AKIN LOPEZ Facility:[facility] Start: 06-16-2022 Office outpatient vi sit 25 minutes Curt Clark Work Phone: [facility] 250 DO Work Phone: Start: 06-16-[address] Elicia Rhodes Facility:[id number] Start: 05-28-2022 End: 05-29-[address] CURT CLARK Facility:[facility] Start: 05-25-2022 End: 05-25-[address] CURT CLARK Facility:[facility] Start: 05-21-2022 End: 05-21-[address] CURT CLARK Facility:[facility] Start: 04-14-2022 End: 04-15-[address] CURT CLARK Facility:[facility] Start: 04-07-2022 End: 04-08-2022 ambulatory ZO SOLER Facility: Start: 03-08-2022 End: 03-09-2022 ambulatory Tyree PARK Facility:[facility] Start: 03-08-2022 End: 03-08-2022 Patient encounter procedure Tyree PARK [facility] Start: 02-25-2022 Rx Renewal Curt Clark Work Phone: [facility] [employer] DO Work Phone: Start: 02-23-2022 End: 02-23-2022 ambulatory Akin Lopez Other [employer] Other Start: 02-23-2022 Telephone encounter Akin Lopez [facility] Start: 01-14-2022 End: 01-14-2022 ambulatory Akin Lopez Other [employer] Other Start: 01-14-2022 Office outpatient vi sit 25 minutes Akin Lopez [facility] Start: 10-12-2021 Rx Renewal Curt Clark Work Phone: [employer] 250 DO Work Phone: Start: 09-30-2021 End: 09-30-2021 ambulatory Akin Lopez Other [employer] Other Start: 09-30-2021 Office outpatient vi sit 25 minutes Akin Lopez [facility] Start: 09-30-2021 Telephone encounter Akin Suarez [facility] Start: 08-25-2021 Office outpatient vi sit 25 minutes Curt Clark Work Phone: [facility] 250 DO Work Phone: Start: 07-02-2021 End: 07-02-2021 ambulatory Quita Ayon Other [facility] [employer] Other Start: 07-02-2021 Telephone encounter [facility] Procedures Date Procedure Procedure Detail Performing Clinician Start: 11-02-2023 TRANSTHORACIC ECHO ( TTE) COMPLETE ELICIA RHODES Start: 11-02-2023 Echo tthrc r-t 2d w/ wom-mode compl spec&colr d Elicia Rhodes MD Work Phone: Start: 10-04-2023 ECG 12-LEAD ELICIA ORO ABOULSSI Start: 10-04-2023 Ecg routine ecg w/le ast 12 lds w/i&r Elicia Rhodes MD Work Phone: Start: 02-24-2021 Urine culture MD Curt Clark Work Phone: Start: 02-19-2021 Lithotripsy Tyree EVANS Start: 01-24-2020 Extracorporeal shock wave lithotripsy of calculus of kidney Tyree PARK Start: 10-16-2019 Echocardiography Start: 01-02-2019 CT of brain without contrast MD Curt Clark Work Phone: Start: 03-09-2018 Extracorporeal shock wave lithotripsy of calculus of kidney Tyree PARK Start: 02-09-2018 Extracorporeal shock wave lithotripsy of calculus of kidney Tyree PARK Start: 10-05-2016 Cataract Extraction with IOL placement - OS. Tyree PARK Start: 07-26-2012 Cystoscopic removal of ureteric stent Tyree PARK Start: 07-14-2012 Cystoscopy and retro grade pyelography Tyree PARK Start: 11-14-1999 Total colonoscopy Anika Clark Work Phone: Cataract surgery Curt walton Work Phone: Cholecystectomy Tyree HALLIE NICHOLSON Excision of ganglion of wrist Tyree PARK Hemorrhoidectomy Curt walton Work Phone: Hemorrhoidectomy Tyree DELCID JASPER Hysterectomy Curt Clark Work Phone: Hysterectomy Tyree PARK Lithotripsy Curt Clark Work Phone: Operative procedure on foot Curt Clark Work Phone: Urine culture MD Curt forde Work Phone: Plan of Treatment Date Care Activity Detail Author Start: 04-17-2024 End: 04-17-2024 Patient encounter procedure 04/17/2024 1:40 PM EDT Office Visit [address] [id number] Elicia Rhodes MD [address] [facility] [address] [place] [address] [facility] Start: 01-09-2024 ambulatory Ambulatory Facility:[facility] Start: 11-08-2023 Glaucoma screening Diabetes: R etinopathy Screening [facility] Start: 11-02-2023 End: 11-02-2023 Patient encounter procedure 11/02/2023 10:45 AM EST Appointment [facility] [address] [place], [place] [address] [place] [address] [facility] Start: 10-04-2023 FUV, Provider: Elicia Rhodes, Status: Pen, Time: 2:10 PM FUV, Provider: Elicia Rhodes, Status: Pen, Time: 2:10 PM [facility] 250 DO Work Phone: Start: 10-04-2023 End: 10-04-2025 Heart Transthoracic Transthoracic Echo (TTE) Complete Echocardiography Routine Aortic valve regurgitation, nonrheumatic Ascending aorta dilation (CMS/HCC) Pulmonary hypertension (CMS/HCC) Expected: 10/04/2023 (Approximate), Expires: 10/04/2025 [facility] Work Phone: Comment on above: Expected: 10/04/2023 (Approximate), Expires: 10/04/2025 Start: 07-19-2023 [facility] Start: 07-15-2023 Influenza vaccination Influenza Vacc ine (#1) [facility] Start: 03-23-2023 FUV, Provider: Elicia Rhodes, Status: Pen, Time: 2:20 PM FUV, Provider: Elicia Rhodes, Status: Pen, Time: 2:20 PM [facility] 250 DO Work Phone: Start: 01-04-2023 [facility] Start: 08-23-2022 [facility] Start: 08-17-2022 End: 08-17-2022 [facility] Start: 07-13-2022 [facility] Start: 06-28-2022 [facility] Start: 05-31-2022 [facility] Start: 05-26-2022 [facility] Start: 05-25-2022 FUV, Provider: Elicia Rhodes, Status: Pen, Time: 2:20 PM [facility] 250 DO Work Phone: Start: 04-13-2022 [facility] Start: 03-02-2022 [facility] Start: 01-18-2022 [facility] Start: 01-18-2022 [facility] Start: 01-18-2022 End: 01-18-2022 [facility] Start: 01-18-2022 [facility] Start: 01-11-2022 [facility] Start: 12-23-2021 [facility] Start: 12-23-2021 [facility] Start: 11-03-2021 [facility] Start: 10-06-2021 [facility] Start: 09-08-2021 [facility] Start: 08-25-2021 [facility] Start: 08-11-2021 [facility] Start: 08-11-2021 [facility] Start: 07-14-2021 [facility] Start: 07-14-2021 [facility] Start: 07-09-2021 End: 07-09-2021 [facility] Start: 06-16-2021 [facility] Start: 05-19-2021 End: 05-19-2021 [facility] Start: 05-19-2021 [facility] Start: 04-21-2021 [facility] Start: 04-09-2021 [facility] Start: 03-24-2021 [facility] Start: 02-24-2021 [facility] Start: 01-12-2021 End: 01-12-2021 [facility] Start: 01-06-2021 [facility] Start: 01-01-2021 [facility] Start: 12-02-2020 [facility] Start: 11-04-2020 [facility] Start: 10-07-2020 [facility] Start: 09-09-2020 [facility] Start: 08-12-2020 [facility] Start: 07-15-2020 [facility] Start: 06-17-2020 [facility] Start: 05-20-2020 [facility] Start: 04-16-2020 [facility] Start: 03-19-2020 [facility] Start: 01-09-2020 [facility] Start: 01-09-2020 [facility] Start: 01-03-2020 [facility] Start: 11-27-2019 End: 11-28-2019 [facility] Start: 10-29-2019 [facility] Start: 10-17-2019 [facility] Start: 09-05-2019 [facility] Start: 09-05-2019 [facility] Start: 07-25-2019 [facility] Start: 07-25-2019 [facility] Start: 06-13-2019 [facility] Start: 06-13-2019 [facility] Start: 05-02-2019 [facility] Start: 04-04-2019 [facility] Start: 03-07-2019 [facility] Start: 02-07-2019 [facility] Start: 01-10-2019 [facility] Start: 11-15-2018 [facility] Start: 10-18-2018 [facility] Start: 09-20-2018 [facility] Start: 08-23-2018 [facility] Start: 07-12-2018 [facility] Start: 06-14-2018 [facility] Start: 05-18-2018 [facility] Start: 05-09-2018 [facility] Start: 04-19-2018 [facility] Start: 03-22-2018 [facility] Start: 02-15-2018 [facility] Start: 01-18-2018 [facility] Start: 12-21-2017 [facility] Start: 08-24-2017 [facility] Start: 07-27-2017 [facility] Start: 1964 DTaP/Tdap/Td Vaccine s (1 - Tdap) DTaP/Tdap/Td Vaccines (1 - Tdap) [facility] Start: 1961 Urine screening for protein Diabetes: Urine Protein Screening [facility] Start: 1961 Zoster Vaccines (1 o f 2) Zoster Vaccines (1 of 2) [facility] Start: 1952 Diabetic foot examination Diabetes: Foot Exam [facility] Start: 1948 Pneumococcal Vaccine : 65+ Years (1 - PCV) Pneumococcal Vaccine: 65+ Years (1 - PCV) [facility] Start: 1947 COVID-19 Vaccine (#1) COVID-19 Vacci ne (#1) [facility] Start: 1942 Hemoglobin A1c measurement Diabetes: Hemoglobin A1C [facility] Start: 1942 Lipid panel Lipid Panel [facility] Start: 1942 Medicare Annual Wellness Visit Medicare Annual Wellness Visit (AWV) [facility] Start: 1942 Yearly Adult Physical Yearly Adult P hysical [facility] Comprehensive metabo lic 1999 panel - Serum or Plasma [facility] Work Phone: Comprehensive metabo lic 1999 panel - Serum or Plasma [facility] metabo lic 1999 panel - Serum or Plasma [facility] DXA Skeletal system.axial Views for bone density [facility] Work Phone: DXA Skeletal system.axial Views for bone density [facility] Radiologic examinati on osseous survey compl [facility] Work Phone: Radiologic examinati on osseous survey [facility] Radiologic examinati on osseous survey [facility] End: 11-02-2023 [facility] Service Area Work Phone: Comment on above: Once for 1 Occurrenc es starting 11/02/2023 until 11/02/2023 [facility] Payers Date Payer Category Payer Medicare [id number] 2010 Unknown 2010 Unknown [id number] 2007 Medicare MEDICARE MEDICAR E PART A AND B [id number] 2007-Present [address] [place] [address] [id number] 1959 Medicare [id number] 1959 Self-pay [id number] 1959 Unknown [id number] 2.16.8 [id number] 1942 Unknown [id number] 2.16.840.1.544893.3.579.2.727 1942 Unknown [id number] 2.16.840.1.248542.3.579.2.727 1942 Unknown [id number] 2.16.840.1.198265.3.579.2.727 1942 Unknown [id number] 2.16.840.1.812466.3.579.2.727 1942 Unknown [id number] 2.16.840.1.936237.3.579.2.593 1942 Unknown [id number] 2.16.840.1.810680.3.579.2.593 1942 Unknown [id number] 2.16.840.1.799148.3.579.2.593 1942 Unknown [id number] 2.16.840.1.982119.3.579.2.593 1942 Unknown [id number] 2.16.840.1.132673.3.579.2.593 1942 Unknown [id number] 2.16.840.1.865983.3.579.2.593 1942 Unknown [id number] 2.16.840.1.762990.3.579.2.593 1942 Unknown [id number] 2.16.840.1.595065.3.579.2.593 1942 Unknown [id number] 2.16.840.1.257290.3.579.2.593 1942 Unknown [id number] 2.16.840.1.795550.3.579.2.593 1942 Unknown [id number] 2.16.840.1.536123.3.579.2.593 1942 Unknown [id number] 2.16.840.1.821198.3.579.2.593 1942 Unknown [id number] 2.16.840.1.176526.3.579.2.593 1942 Unknown [id number] 2.16.840.1.647295.3.579.2.593 1942 Unknown [id number] 2.16.840.1.997158.3.579.2.356 1942 Unknown [id number] 2.16.840.1.753772.3.579.2.356 1942 Unknown [id number] 2.16.840.1.121268.3.579.2.1244 1942 Unknown [id number] 2.16.840.1.590428.3.579.2.1246 Unknown [id number] 2.16.840.1.071268.3.579.2.593 Unknown [id number] 2.16.840.1.981062.3.579.2.531 Social History Date Type Detail Facility Start: 10-04-2023 Daily caffeine consumption, 2-3 servings a day Daily caffeine consumption, 2-3 servings a day [facility] 89 DO Work Phone: Start: 03-08-2022 End: 10-04-2023 Tobacco smoking status Never smoked tobacco (finding) [facility] Tobacco smoking status Never [facility] Start: 10-04-2023 Sex Assigned At Female N [facility] [employer] Other Start: 1940 Sex Assigned At Female F [facility] Start: 10-04-2023 Tobacco use and exposure Smokeless tobacco non-user [facility] Work Phone: Start: 10-04-2023 Alcohol intake Lifetime non-d tamia (finding) [facility] Work Phone: Start: 1940 [facility] Assigned At [facility] Start: 09-24-2023 End: 11-02-2023 Exposure to SARS-CoV-2 (event) Not sure [facility] Medical Equipment Procedure Code Equipment Code Equipment Origin al Text Equipment Identifier Dates Lancets 100 pack Start: 07-10-2018 Functional Status Date Assessment Result Facility 01-10-2023 Functional Status N/A [facility] Clinical Notes 07-27-2017 to 12-01-2023 Note Date & Type Note Facility 12-01-2023 Evaluation note Encounter Date Diagnosis Assessment Notes Nov, Benign essential HTN (ICD-10 - I10) Blood pressure remains well controlled at this time. Denies cardiac symptoms. Shows no signs or symptoms or poor control. Patient to continue with above medication and we will continue to monitor. Advised to pay attention to body and symptoms. Any developing patterns. Stay well hydrated. 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 Will see him as scheduled on 12/05. 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 Had treated neck in the past. Pt tolerated well. [facility] Other 12-04-2023 Evaluation note* Encounter Date Diagnosis Assessment Notes Treatment Notes Treatment Clinical Notes Oct, Type 2 diabetes mellitus with hyperglycemia (ICD-10 - E11.65) [facility] Other 11-30-2023 Evaluation note* Encounter Date Diagnosis Assessment Notes Treatment Notes Treatment Clinical Notes Sep, Type 2 diabetes mellitus with hyperglycemia (ICD-10 - E11.65) [facility] Other 11-21-2023 History of Present illness Narrative* Elicia Rhodes MD - 10/04/2023 2:10 PM EST Grzegorz Trivedi is a 83 y.o. female Chief Complaint Follow-up HPI Patient is here for follow-up continue management for history of atrial fibrillation, previous evaluation for chest pain, hypertension and hyperlipidemia. Since last time I saw her she denies any cardiac complaint chest pain, palpitation, lightheadedness, dizziness or syncope. She was in the hospital on 1 occasion because of elevated blood pressure and epistaxis. She reports she forgot to take her Coreg. She required nasal packing. However since her blood pressure has improved patient denies any complain. Her recent laboratory data noted and reviewed. Her creatinine around 2.5. Patient complai luigi about the cost of Xarelto. ASSESSMENT: 1. Persistent atrial fibrillation. Currently in normal sinus rhythm. Currently on Xarelto with appropriate dose based on renal function 2. Remote evaluation for chest pain, resolved. No recurrence. She did have noninvasive assessment at [facility], which was negative. Couple of years ago. No further recurrence she had 1 episode in the last year and I did advise her to have a repeat stress test but she elected to defer that 3. Hypertension, controlled. Blood pressure in normal range 4. Hyperlipidemia, on atorvastatin and fish oil. Controlled recent lab noted and reviewed 5. Chronic kidney disease. Approaching stage IV 6. Multiple myeloma. Patient report in remission 7. Prior presentation with cerebellar infarct. Currently on aspirin and Xarelto and followed by neurology 8. Moderate aortic regurgitation no recent echo 9. Moderate obesity with mild weight gain recently 10.There had been some notation in the chart that she had dilated aortic root. She could not be confirmed on a CT scan previously. Plan 1. I discussed with the patient the possibility of Watchman device but she declined. For cost issueI suggested to her to consider switching to Pradaxa. She will check on the prices 2. Risk, benefit alternative anticoagulation reviewed with patient at great length she understood and agreed 3. I advised her to notify me if she had any recurrence of her epistaxis 4. I reviewed with her her recent lab work 5. I advised her to continue her efforts to lose weight and exercise 6. We discussed stress testing again but the patient declined 7. We will repeat her echocardiogram to check her aortic valve and her aortic root Review of Systems Neurological: Positive for dizziness. All other systems reviewed and are negative. Visit Vitals BP 138/68 (BP Location: Right arm, Patient Position: Sitting) Pulse 72 Ht 1.676 m (5' 6 ) Wt 88 kg (194 lb) BMI 31.31 kg/m Smoking Status Never BSA 2.02 m EKG done in office today Objective Physical Exam Constitutional: Appearance: Normal appearance. She is normal weight. HENT: Nose: Nose normal. Neck: Vascular: No carotid bruit. Cardiovascular: Rate and Rhythm: Normal rate. Pulses: Normal pulses. Heart sounds: Murmur heard. Diastolic murmur is present with a grade of 2/4. Pulmonary: Effort: Pulmonary effort is normal. Abdominal: General: Bowel sounds are normal. Palpations: Abdomen is soft. Genitourinary: Rectum: Normal. Musculoskeletal: General: Normal range of motion. Cervical back: Normal range of motion. Right lower leg: No edema. Left lower leg: No edema. Skin: General: Skin is warm and dry. Neurological: General: No focal deficit present. Mental Status: She is alert. Psychiatric: Mood and Affect: Mood normal. Behavior: Behavior normal. Thought Content: Thought content normal. Judgment: Judgment normal. Current Medications Current Outpatient Medications: acyclovir (Zovirax) 400 mg tablet, Take 1 tablet (400 mg) by mouth 2 times a day., Disp: , Rfl: aspirin 81 mg EC tablet, Take 1 tablet (81 mg) by mouth once daily., Disp: , Rfl: atorvastatin (Lipitor) 40 mg tablet, Take 1 tablet (40 mg) by mouth once daily., Disp: , Rfl: carvedilol (Coreg) 12.5 mg tablet, Take 1 tablet (12.5 mg) by mouth 2 times a day., Disp: , Rfl: cholecalciferol (Vitamin D-3) 25 MCG (1000 UT) tablet, Take 1 tablet (25 mcg) by mouth once daily.,Disp: , Rfl: fish oil concentrate ([place]-3) 120-180 mg capsule, Take 1 capsule (1 g) by mouth 2 times a day., Disp: , Rfl: insulin NPH, Isophane, (HumuLIN N,NovoLIN N) 100 unit/mL injection, Inject 15 Units under the skin once daily in the morning. Take as directed per insulin instructions., Disp: , Rfl: Xarelto 15 mg tablet, Take 1 tablet (15 mg) by mouth once daily., Disp: , Rfl: Assessment/Plan 1. Persistent atrial fibrillation with RVR (CMS/HCC) Follow Up In Cardiology ECG 12 Lead 2. Aortic valve regurgitation, nonrheumatic Follow Up In Cardiology Transthoracic Echo (TTE) Complete 3. Ascending aorta dilation (CMS/HCC) Follow Up In Cardiology Transthoracic Echo (TTE) Complete 4. Essential hypertension 5. Pulmonary hypertension (CMS/HCC) Transthoracic Echo (TTE) Complete 6. Stage 3a chronic kidney disease (CMS/HCC) [facility] Work Phone: 1(419) 164-576111-21-2023 Instructions* Patient Instructions* Daisy Mane LPN - 10/04/2023 2:10 PM EST Please bring all medicines, vitamins, and herbal supplements with you when you come to the office. Prescriptions will not be filled unless you are compliant with your follow up appointments or have a follow up appointment scheduled as per instruction of your physician. Refills should be requested at the time of your visit. Tory Srinivasan discussed Follow up 6 months [facility] Work Phone: 1(529) 277-117311-13-2023 Evaluation note* Encounter Date Diagnosis Assessment Notes Treatment Notes Treatment Clinical Notes Sep, Bronchitis (ICD-10 - J40) Discussed diagnosis with patient. Finish entire course of antibiotic. Tessalon Pearles ordered to take as needed for cough. Increase fluids and rest. [id number] antipyretics as needed. Warning signs and symptoms reviewed with patient today. Patient to go immediately to the ER should she experience any of these. Patient to notify office should her symptoms persist and not improve. Patient verbalizes understanding and agrees to treatment plan. [facility] Other 10-31-2023 Evaluation note* Encounter Date Diagnosis Assessment Notes Treatment Notes Treatment Clinical Notes Aug, Lumbar pain (ICD-10 - M54.50) Hx of falls - will check lumbar XR to r/o fracture Aug, Left flank pain (ICD-10 - R10.9) r/o nephrolith Aug, Bronchitis (ICD-10 - J40) Finish antibiotics. Take prednisone. Understands it will increase her glucose. [facility] Other 10-18-2023 Evaluation note* Encounter Date Diagnosis Assessment Notes Treatment Notes Treatment Clinical Notes Aug, Acute pain of left knee (ICD-10 - M25.562) Aug, Other Patient's not having any pain today. At this point she can call me in the future if she needs me [facility] Other 08-11-2023 Evaluation note* Encounter Date Diagnosis Assessment Notes Treatment Notes Treatment Clinical Notes Jun, UTI symptoms (ICD-10 - R39.9) Will treat empirically as she is unable to provide a sample today. Jun, Weakness (ICD-10 - R53.1) Agrees to for PT and possible help with medications. Jun, Balance disorder (ICD-10 - R26.89) as above [facility] Other 08-10-2023 Evaluation note* Encounter Date Diagnosis Assessment Notes Treatment Notes Treatment Clinical Notes Jun, Nephrolithiasis (ICD -10 - N20.0) Her 24 hr urine stone studies showed Hypocitruria. Continue Oracit for for kidney stones prevention.I have advised her to adequately hydrate herself. 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 with proteinuria less than 1 g. Her renal US showed B/L simple renal cyst. I have d/w her the importance of good DM and HTN control to slow down the progression of CKD Jun, Hypertensive chronic kidney disease with stage 1 through stage 4 chronic kidney disease, or unspecified chronic kidney disease (ICD-10 - I12.9) Blood pressure is usually well controlled on current regimen. I have advised her to monitor blood pressure at home and if it stays above 140/90 mmHg then call office. 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 Continue follow-up [facility] PCP for diabetes mellitus management. She is not on MARK or ARB due to the advanced CKD. Jun, Secondary hyperparathyroidism of renal origin (ICD-10 - N25.81) PTH is at goal. I have advised her to take low phosphorus diet Jun, Vitamin D deficiency (ICD-10 - E55.9) Vit D is within the goal. I will continue the current treatment. Jun, Microscopic hematuri a (ICD-10 - R31.29) She has microscopic hematuria likely due to Nephrolithiasis. She follows with Urologist Dr. Lou. She has hypocirturia and Currently takes Oracit Jun, Multiple myeloma (IC D-10 - C90.00) Follows with Oncology Jun, Metabolic acidemia, unspecified (ICD-10 - P19.9) She has a metabolic acidosis due to the CKD. Continue oral sodium bicarbonate. [facility] Other 06-13-2023 Evaluation note* Encounter Date Diagnosis Assessment Notes Treatment Notes Treatment Clinical Notes Apr, Vasovagal syncope (ICD-10 - R55) Nearly passed out in office, BP down to 90/58. Staff helped her to friends car. Report called to Dr. Agudelo at [facility] ER. Likely due to taking bp med again, when her personal lines sales rep has d/c it. Pt sent to ER. Apr, Weakness (ICD-10 - R53.1) Pt agrees to HH and PT. Also could use help from for walk in shower and local services for seniors. Apr, Acute pain of left knee (ICD-10 - M25.562) tramadol, PT, and HH Apr, Other Pt states tylen ol is not helpful and requests another pain med. She agrees to HH and PT [facility] Other 05-03-2023 NotePROCEDURE: XR KNEE LT 1_2 V DATE: 03/16/2023 7:54 AM CDT COMPARISONS: None CLINICAL INDICATION: Pain of left knee joint FINDINGS: There is no evidence of fractures or other acute osseous abnormalities. There is mild medial and lateral femoral tibial spurring consistent with mild medial and lateral compartment degenerative change. Lateral view shows moderate patellofemoral degenerative change. There may be slight left knee joint effusion but no dominant left knee joint effusion identified. There is no evidence of fractures or other acute osseous abnormalities. IMPRESSION: Left knee degenerative changes as discussed above. No evidence of acute osseous abnormalities.. Electronically authenticated by: WILD SOLO Date: 2023-03-16 09:18[facility] Evaluation note* Encounter Date Diagnosis Assessment Notes Treatment Notes Treatment Clinical Notes March, Left lateral knee pain (ICD-10 - M25.562) Discussed possible PT. Has improved overall with rest and stretching. Will start with Xray. Recommended tylenol products. March, Hypertension (ICD-10 - I10) chronic. stable - controlled on present [employer] Other 02-28-2023 Progress note Author [facility] January 11, 2023 11:19am Note Date/Time January 11, 2023 10:42am [facility] [place] [address] Hem/Onc Follow Up Note - OP Signed Patient: Hailee Trivedi MR#: [id number] : 1940 Acct:[id number] Age/Sex: 82 / F Type: REG RCR Copies to: MD Claire Napier, II, DO~ Date of Service: 01/11/2023 Time of Service: 10:42 - Assessment & Plan (1) Multiple myeloma Plan: 81 year old female with a long history of multiple myeloma currently on Daratumumab. Previously evaluated for consideration of autologous transplant and was not a candidate. Her myeloma is refractory to VCD, she could not tolerate Revlimid, and she progressed on Carfilzomib. She is tolerating therapy with daratumumab well. Within one month of starting irma in 2015 she had 95% reduction in K light chains and have been normal since. March 2022 her M spike remains undetectable. Continues on Daratumumab Will continue with treatment every 6 weeks. -- SPEP, SFLC at each cycle --24hr UPEP and FLC every 3 cycles --Continue Acyclovir 400 mg BID prophylaxis Jun 2022 visit we decided to monitor off of therapy. Counts have remained fairlystable overall since this time Dec 2022 she continues to do very well off treatment and agrees with continued monitoring of labs every 3 months Lytic lesions completed Pamidronate 60 mg monthly for 2 years. She was switched to every 3 month but stopped after 04/2018 since she stayed in remission for total of 2 years. Last dose was 04/19/2018. 01/29/22 bone survey notes stable with one lytic lesion in R humeral head 01/06/23 bone survey without any lytic lesions noted. Vitamin B12 deficiency Antibodies for parietal cells and intrinsic factor were normal. Switched to oral Vit B12 in 04/2019. Repeat B12 level in 07/2019 was 900 and 506 in 11/02. -- Continue oral vitamin B12 at 1000mcg daily. L leg weakness New since end of March 2022- this is being managed by her neurologist. Head CT done March 2022 at [facility] without new/acute findings. Follow Up Instructions: cbc, cmp, spep, hailee, flc, immunoglobulins in 3 months and 6 months follow-up in 6 months - History of Present Illness Chief Complaint: Patient is here today for a follow up 5 month follow up visit for multiple myeloma and go over labs 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 -ISS stage III, beta-2 and microglobulin 3.8 on 07/05/2014, albumin 3.5. -Bone survey showed lucent areas in the calvarium and distal right humerus. -Autologous stem cell transplantation evaluated by Dr. Yossi Bradshaw, not a candidate. 10/06/21 Dr. Bello note- She is here for routine follow-up. Her most recent SPEP showed M spike at 0.1. She is on monthly daratumumab for myeloma. She will be getting her treatment today and we have been trying to transfer her care to [place] [facility] but they are not up to doing transfusions yet. 12/16/21 Dr. Bello note- She is here for routine follow-up. She has been absent because of a prolonged Covid infection. She is presenting December 16 to resume her daratumumab. She was previously on monthly maintenance daratumumab for multiple myeloma. Shewas given the Darzalex shot but did not tolerate this and is now on monthly intravenous daratumumab. 01/18/22 Seen via video visit with Dr. Choi. Her myeloma is refractory to VCD, she could not tolerate Revlimid, and she progressed on Carfilzomib. She is tolerating therapy with daratumumab well. Within one month of starting irma in 2015 she had 95% reduction in K light chains and have been normal since. She is questioning whether she needs to stay on treatment. Serologically she has been nearly undetectable for 5 years. We decided in January 2021 to space her treatments out to every 6 weeks. will consider further spacing if she is doing well in 6 months. 04/13/22 She is doing ok overall, still with quite a bit of fatigue on treatment she denies n/v/d/c, no abdominal pain, chest pain or dyspnea she notes left leg weakness x 1 week, sees neurology (followed at [facility]) who have ruled out stroke, CT brain without acute findings. She is using a cane and walker as her leg will just go out on her occasionally. No other symptoms with this otherwise she denies any new complaints. no fever, chills, sweats or recent infections 07/13/22 labs remain stable, 0.2 M spike. creat 2.38 01/11/23 she feels very well overall denies any complaints no new pain. energy is ok, eating and drinking ok labs overall ok. hgb still WNL. k/l ratio mildly increasing, M-spike pending at visit - Physical Exam CONSTITUTIONAL: Awake, Alert and in No Acute Distress HEENT: Eyes were reactive to light bilaterally, anicteric sclere without conjunctival pallor. Nasal mucosa was non-erythematous. Mucous membranes were moist. NECK: There were no masses in the neck. Trachea was midline. Thyroid was not enlarged. LYMPHATIC: No auricular, anterior/posterior cervical, supraclavicular, infraclavicular, axillary, or inguinal adenopathy appreciated RESPIRATORY: CTA bilaterally, no wheezes, rhonchi or rales CARDIAC: RRR. No murmurs, gallops or rubs. No edema MUSCULOSKELETAL: Gait was normal. No clubbing or cyanosis noted. SKIN: No rashes, lesions, nodules, ecchymoses, erythema or petechiae were noted. PSYCHIATRIC: Oriented to time, place and person. Memory was intact. Goal of Treatment: Palliative - Time with Patient Coordination of Care & Counseling Time: Greater than 50% of time spent with patient was for coordination of care (as documented) and [id number] counseling of patient and/or family. [facility] - Medical History Medical History: Medical History (Last Updated 12/16/21 @ 12:55 by Courtney Jackman) Afib CKD (chronic kidney disease) COVID-19 CVA (cerebral vascular accident) Diabetes HTN (hypertension) Hyperlipidemia Kidney stone Multiple myeloma - Surgical History Surgical History: Surgical History (Last Reviewed 12/16/21 @ 12:55 by Courtney Jackman) History of cholecystectomy History of hemorrhoidectomy History of hysterectomy History of renal stent Hx of lithotripsy - Social History Smoking Status: Never smoker Substance Use Type: None Additional Data - Additional Objective Data Height/Weight: Height 5 ft 6 in Weight 88.2 kg BSA for Today's Weight 1.98 Vital Signs: 01/11/23 10:37 Temperature 97.8 F Pulse Rate [Left Brachial] 66 Respiratory Rate 16 Blood Pressure [Right Arm] 139/63 02 Sat by Pulse Oximetry 97 Oxygen Delivery Method Room Air Distress Screening: RN Distress Screening Start: 07/22/17 16:17 Freq: Q30D Status: Active Protocol: Document 01/19/22 09:00 KB (Rec: 01/19/22 09:01 KB [id number]) Distress Screening Distress screening follow up: Will follow with patient for any needs at next visit. Anxious about making next appointment time. - Lab Results Diagram of Most Recent CBC and CMP 01/04/23 14:45 01/04/23 14:45 Labs - Last 7 Days 01/04/23 14:45: Free [place] LC, Quant 26.9 H, Free [place]ambda LC, Quant 12.0, Free [place]/Lambda Ratio 2.24 H 01/04/23 14:45: PHA Creatinine Clear 19.82, Sodium 137, Potassium 4.3, Chloride 108, Carbon Dioxide 21.9 L, Anion Gap 11.4, BUN 33 H, Creatinine 2.48 H, Est GFR( Amer) 23, Est GFR (Non-Af Amer) 19, Glucose 144 H, Calcium 8.7, Total Bilirubin 0.6, AST 14, ALT 14, Alkaline Phosphatase 99 H, Total Protein 6.1, Albumin 3.6, Globulin 2.5, Albumin/Globulin Ratio 1.4 01/04/23 14:45: Corrected WBC 8.9, Uncorrected WBC Count 8.9, RBC 4.04, Hgb 12.7, Hct 38.4, MCV 95.1, MCH 31.4, MCHC 33.0, RDW 13.2, Plt Count 210, MPV 9.6,Neut % (Auto) 54.8, Lymph % (Auto) 34.1, [place] % (Auto) 8.0, Eos % (Auto) 2.3, Baso % (Auto) 0.8, Nucleat RBC Rel Count 0.0, Neut # (Auto) 4.9, Lymph # (Auto) 3.0, [place] # (Auto) 0.7, Eos # (Auto) 0.2, Baso # (Auto) 0.1 - Home Medications and Allergies Allergies/Adverse Reactions: Allergies lenalidomide [From Revlimid] Allergy (Mild, Verified 01/11/23 10:37) Rash oxybutynin Allergy (Verified 01/11/23 10:37) Rash pregabalin [From Lyrica] Allergy (Verified 01/11/23 10:37) double vision Home Medications: Home Medications Fish Oil 1,200 cap PO BID 07/14/17 [History Confirmed 01/11/23] insulin lispro 100 unit/mL subcutaneous pen (Humalog KwikPen (U-100) Insulin) See Protocol subcut ACHS PRN DIABETES 07/14/17 [History Confirmed 01/11/23] sodium bicarbonate 650 mg tablet 650 mg PO BID 07/14/17 [History Confirmed 01/11/23] cholecalciferol (vitamin D3) 125 mcg (5,000 unit) tablet (Vitamin D3) 1,000 unitPO DAILY 08/10/18 [History Confirmed 01/11/23] insulin NPH isoph U-100 human 100 unit/mL (3 mL) subcutaneous pen (Humulin N NPHU-100 Insulin KwikPen) 12 unit subcut QPM 08/10/18 [History Confirmed 01/11/23] atorvastatin 40 mg tablet 40 mg PO DAILY 08/23/18 [History Confirmed 01/11/23] amlodipine 10 mg tablet 5 mg PO DAILY 09/20/18 [History Confirmed 01/11/23] aspirin 81 mg chewable tablet 81 mg PO DAILY 10/18/18 [History Confirmed 01/11/23] cyanocobalamin (vitamin B-12) 1,000 mcg tablet 1,000 mcg PO DAILY 05/02/19 [History Confirmed 01/11/23] acyclovir 400 mg tablet 400 mg PO BID 11/07/19 [History Confirmed 01/11/23] carvedilol 12.5 mg tablet (Coreg) 12.5 mg PO BID 30 days #60 tabs 11/07/19 [Rx Confirmed 01/11/23] rivaroxaban 15 mg tablet (Xarelto) 15 mg PO DAILY 30 days #30 tabs 11/07/19 [Rx Confirmed 01/11/23] cyclobenzaprine 10 mg tablet 10 mg PO TID PRN Pain #15 tabs 11/04/20 [Rx Confirmed 01/11/23] sodium citrate-citric acid 490 mg-640 mg/5 mL oral solution (Oracit) 10 ml PO QID 06/16/21 [History Confirmed 01/11/23] Dictated By: Misti Connolly APRN DD/ 1042 Signed By: <Electronically signed by RAMAKRISHNA Connolly> 01/11/23 [address] [facility] Work Phone: 1(144) 602-255102-27-2023 Hospital Discharge instructions Patient Education 01/10/2023 08:23:12 Dietary Guidelines to Help Prevent Kidney Stones Dietary Guidelines to Help Prevent Kidney Stones Kidney stones are deposits of minerals and salts that form inside your kidneys. Your risk of developing kidney stones may be greater depending on your diet, your lifestyle, the medicines you take, and whether you have certain medical conditions. Most people can reduce their chances of developing kidney stones by following the instructions below. Depending on your overall health and the type of kidney stones you tend to develop, your dietitian may give you more specific instructions. What are tips for following this plan? Reading food labels Choose foods with no salt added or low-salt labels. Limit your sodium intake to less than 1500 mg per day. Choose foods with calcium for each meal and snack. Try to eat about 300 mg of calcium at each meal.Foods that contain 200 500 mg of calcium per serving include: ?8 oz (237 ml) of milk, fortified nondairy milk, and fortified fruit juice. ?8 oz (237 ml) of kefir, yogurt, and soy yogurt. ?4 oz (118 ml) of tofu. ?1 oz of cheese. ?1 cup (300 g) of dried figs. ?1 cup (91 g) of cooked broccoli. ?1 3 oz can of sardines or mackerel. Most people need 1000 to 1500 mg of calcium each day. Talk to your dietitian about how much calciumis recommended for you. Shopping Buy plenty of fresh fruits and vegetables. Most people do not need to avoid fruits and vegetables, even if they contain nutrients that may contribute to kidney stones. When shopping for convenience foods, choose: ?Whole pieces of fruit. ?Premade salads with dressing on the side. ?Low-fat fruit and yogurt smoothies. Avoid buying frozen meals or prepared deli foods. Look for foods with live cultures, such as yogurt and kefir. Cooking Do not add salt to food when cooking. Place a salt shaker on the table and allow each person to addhis or her own salt to taste. Use vegetable protein, such as beans, textured vegetable protein (TVP), or tofu instead of meat in pasta, casseroles, and soups. Meal planning Eat less salt, if told by your dietitian. To do this: ?Avoid eating processed or premade food. ?Avoid eating fast food. Eat less animal protein, including cheese, meat, poultry, or fish, if told by your dietitian. To dothis: ?Limit the number of times you have meat, poultry, fish, or cheese each week. Eat a diet free of meat at least 2 days a week. ?Eat only one serving each day of meat, poultry, fish, or seafood. ?When you prepare animal protein, cut pieces into small portion sizes. For most meat and fish, one serving is about the size of one deck of cards. Eat at least 5 servings of fresh fruits and vegetables each day. To do this: ?Keep fruits and vegetables on hand for snacks. ?Eat 1 piece of fruit or a handful of berries with breakfast. ?Have a salad and fruit at lunch. ?Have two kinds of vegetables at dinner. Limit foods that are high in a substance called oxalate. These include: ?Spinach. ?Rhubarb. ?Beets. ?Potato chips and bahraini fries. ?Nuts. If you regularly take a diuretic medicine, make sure to eat at least 1 2 fruits or vegetables high in potassium each day. These include: ?Avocado. ?Banana. ?[place], prune, carrot, or tomato juice. ?Baked potato. ?Cabbage. ?Beans and split peas. General instructions Drink enough fluid to keep your urine clear or pale yellow. This is the most important thing you can do. Talk to your health care provider and dietitian about taking daily supplements. Depending on your health and the cause of your kidney stones, you may be advised: ?Not to take supplements with vitamin C. ?To take a calcium supplement. ?To take a daily probiotic supplement. ?To take other supplements such as magnesium, fish oil, or vitamin B6. Take all medicines and supplements as told by your health care provider. Limit alcohol intake to no more than 1 drink a day for non women and 2 drinks a day for men. One drink equals 12 oz of beer, 5 oz of wine, or 1 oz of hard liquor. Lose weight if told by your health care provider. Work with your dietitian to find strategies and an eating plan that works best for you. What foods are not recommended? Limit your intake of the following foods, or as told by your dietitian. Talk to your dietitian about specific foods you should avoid based on the type of kidney stones and your overall health. Grains Breads. Bagels. Rolls. Baked goods. Salted crackers. Cereal. Pasta. Vegetables Spinach. Rhubarb. Beets. Canned vegetables. Pickles. Olives. Meats and other protein foods Nuts. Nut butters. Large portions of meat, poultry, or fish. Salted or cured meats. Deli meats. Hotdogs. Sausages. Dairy Cheese. Beverages Regular soft drinks. Regular vegetable juice. Seasonings and other foods Seasoning blends with salt. Salad dressings. Canned soups. Soy sauce. Ketchup. Barbecue sauce. Canned pasta sauce. Casseroles. Pizza. Lasagna. Frozen meals. Potato chips. Occitan fries. Summary You can reduce your risk of kidney stones by making changes to your diet. The most important thing you can do is drink enough fluid. You should drink enough fluid to keep your urine clear or pale yellow. Ask your health care provider or dietitian how much protein from animal sources you should eat eachday, and also how much salt and calcium you should have each day. This information is not intended to replace advice given to you by your health care provider. Make sure you discuss any questions you have with your health care provider. Document Released: 02/25/2012 Document Revised: 02/20/2020 Document Reviewed: 10/11/2017 [employer] Patient Education 2020 [employer] Follow Up Care 03/08/2022 11:44:08 With:XAVIER VELAZQUEZ, Tyree Rivers, URL Address: [facility] [address] , [place] [address]- When: Unknown [facility] 02-08-2023 Evaluation note* Encounter Date Diagnosis Assessment Notes Treatment Notes Treatment Clinical Notes Dec, Nephrolithiasis (ICD -10 - N20.0) Her 24 hr urine stone studies showed Hypocitruria. Continue Oracit for for kidney stones prevention.I have advised her to adequately hydrate herself. 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 with proteinuria less than 1 g. Her renal US showed B/L simple renal cyst. I have d/w her the importance of good DM and HTN control to slow down the progression of CKD Dec, Hypertensive chronic kidney disease with stage 1 through stage 4 chronic kidney disease, or unspecified chronic kidney disease (ICD-10 - I12.9) Blood pressure is usually well controlled on current regimen. Continue current medications. I have advised her to monitor blood pressure at home and if it stays above 140/90 mmHg then call office. 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 Continue follow-up [facility] PCP for diabetes mellitus management. She is not on MARK or ARB due to the advanced CKD. Dec, Secondary hyperparathyroidism of renal origin (ICD-10 - N25.81) PTH is at goal. I have advised her to take low phosphorus diet Dec, Vitamin D deficiency (ICD-10 - E55.9) Vit D is within the goal. I will continue the current treatment. Dec, Microscopic hematuri a (ICD-10 - R31.29) She has microscopic hematuria likely due to Nephrolithiasis. She follows with Urologist Dr. Lou. She has hypocirturia and Currently takes Oracit Dec, Multiple myeloma (IC D-10 - C90.00) Follows with Oncology Dec, Metabolic acidemia, unspecified (ICD-10 - P19.9) She has a metabolic acidosis due to the CKD. Continue oral sodium bicarbonate. [facility] Other 01-26-2023 Evaluation note* Encounter Date Diagnosis Assessment Notes Treatment Notes Treatment Clinical Notes Nov, Paroxysmal atrial fibrillation (ICD-10 - I48.0) Patient understands to restart all of her medicines and take them as prescribed Will notify her personal lines sales rep of this situation. Nov, Wart of face (ICD-10 - B07.9) Small wart on her face was treated with cryo freeze without issue pt tolerated procedure well Nov, CKD (chronic kidney disease), stage IV (ICD-10 - N18.4) Discussed follow-up appointment with Dr. Jane Nov, Multiple myeloma (ICD-10 - C90.00) Stable on present appointments and treatment [facility] Other 10-04-2022 Progress note Author Claire Choi [facility] August 17, 2022 1:48pm Note Date/Time August 03, 2022 4:57pm [facility] at [address] [address] Hem/Onc Follow Up Note - OP Signed with Addenda Patient: Hailee Trivedi MR#: [id number] : 1940 Acct:[id number] Age/Sex: 82 / F Type: REG RCR Copies to: Curt Clark MD~ ADDENDUM2 the plan was to monitor without treatment for a while. will recheck her numbers in 3 months and prior to f/u in 6 months. i attempted to call pateint today, left message apologizing for the miscommunication on her voice mail. Addendum Dictated By: Claire Choi II, DO Addendum Signed By: 08/17/221347 Addendum Cosigned By: JUAN DANIEL/ /05/1348 TD/TT: 08/17/2203/05/1348 ADDENDUM1 This was actually for date of service 07/13/22. Addendum Dictated By: Claire Choi II, DO Addendum Signed By: 08/03/221699 Addendum Cosigned By: JUAN DANIEL/ TD/TT: 08/03/22 Date of Service: 08/03/2022 Time of Service: 16:56 - Assessment & Plan (1) Multiple myeloma Plan: 81 year old female with a long history of multiple myeloma currently on Daratumumab. Previously evaluated for consideration of autologous transplant and was not a candidate. Her myeloma is refractory to VCD, she could not tolerate Revlimid, and she progressed on Carfilzomib. She is tolerating therapy with daratumumab well. Within one month of starting irma in 2015 she had 95% reduction in K light chains and have been normal since. March 2022 her M spike remains undetectable. Continues on Daratumumab Will continue with treatment every 6 weeks. -- SPEP, SFLC at each cycle --24hr UPEP and FLC every 3 cycles --Continue Acyclovir 400 mg BID prophylaxis Lytic lesions completed Pamidronate 60 mg monthly for 2 years. She was switched to every 3 month but stopped after 04/2018 since she stayed in remission for total of 2 years. Last dose was 04/19/2018. 01/29/22 bone survey notes stable with one lytic lesion in R humeral head Vitamin B12 deficiency Antibodies for parietal cells and intrinsic factor were normal. Switched to oral Vit B12 in 04/2019. Repeat B12 level in 07/2019 was 900 and 506 in 11/02. -- Continue oral vitamin B12 at 1000mcg daily. L leg weakness New since end of March 2022- this is being managed by her neurologist. Head CT done March 2022 at [facility] without new/acute findings. May suggest brain MRI if no other etiologies identified - History of Present Illness Chief Complaint: Patient is here for a 3 month follow up with outside labs for review. States she has had ongoing lower back pain for the last month or so. Patient scheduled for Cycle 55 Daratumumab today. 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 -ISS stage III, beta-2 and microglobulin 3.8 on 07/05/2014, albumin 3.5. -Bone survey showed lucent areas in the calvarium and distal right humerus. -Autologous stem cell transplantation evaluated by Dr. Yossi Bradshaw, not a candidate. 10/06/21 Dr. Bello note- She is here for routine follow-up. Her most recent SPEP showed M spike at 0.1. She is on monthly daratumumab for myeloma. She will be getting her treatment today and we have been trying to transfer her care to [place] [facility] but they are not up to doing transfusions yet. 12/16/21 Dr. Bello note- She is here for routine follow-up. She has been absent because of a prolonged Covid infection. She is presenting December 16 to resume her daratumumab. She was previously on monthly maintenance daratumumab for multiple myeloma. Shewas given the Darzalex shot but did not tolerate this and is now on monthly intravenous daratumumab. 01/18/22 Seen via video visit with Dr. Choi. Her myeloma is refractory to VCD, she could not tolerate Revlimid, and she progressed on Carfilzomib. She is tolerating therapy with daratumumab well. Within one month of starting irma in 2016 she had 95% reduction in K light chains and have been normal since. She is questioning whether she needs to stay on treatment. Serologically she has been nearly undetectable for 5 years. We decided in January 2021 to space her treatments out to every 6 weeks. will consider further spacing if she is doing well in 6 months. 04/13/22 She is doing ok overall, still with quite a bit of fatigue on treatment she denies n/v/d/c, no abdominal pain, chest pain or dyspnea she notes left leg weakness x 1 week, sees neurology (followed at [facility]) who have ruled out stroke, CT brain without acute findings. She is using a cane and walker as her leg will just go out on her occasionally. No other symptoms with this otherwise she denies any new complaints. no fever, chills, sweats or recent infections 07/13/22 labs remain stable, 0.2 M spike. creat 2.38 - Physical Exam CONSTITUTIONAL: Awake, Alert and in No Acute Distress HEENT: Eyes were reactive to light bilaterally, anicteric sclere without conjunctival pallor. Nasal mucosa was non-erythematous. Mucous membranes were moist. Oral mucosa was without lesions or petechiae. Dentition was normal. NECK: There were no masses in the neck. Trachea was midline. Thyroid was not enlarged. LYMPHATIC: No auricular, anterior/posterior cervical, supraclavicular, infraclavicular, axillary, or inguinal adenopathy appreciated RESPIRATORY: CTA bilaterally, no wheezes, rhonchi or rales CARDIAC: RRR. No murmurs, gallops or rubs. No edema MUSCULOSKELETAL: Gait was normal. No clubbing or cyanosis noted. SKIN: No rashes, lesions, nodules, ecchymoses, erythema or petechiae were noted. PSYCHIATRIC: Oriented to time, place and person. Memory was intact. Mood was normal and affect was appropriate to mood. Goal of Treatment: Palliative - Time with Patient Coordination of Care & Counseling Time: Greater than 50% of time spent with patient was for coordination of care (as documented) and [id number] counseling of patient and/or family. [facility] - Medical History Medical History: Medical History (Last Updated 12/16/21 @ 12:55 by Courtney Jackman) Afib CKD (chronic kidney disease) COVID-19 CVA (cerebral vascular accident) Diabetes HTN (hypertension) Hyperlipidemia Kidney stone Multiple myeloma - Surgical History Surgical History: Surgical History (Last Reviewed 12/16/21 @ 12:55 by Courtney Jackman) History of cholecystectomy History of hemorrhoidectomy History of hysterectomy History of renal stent Hx of lithotripsy - Social History Smoking Status: Never smoker Substance Use Type: None Additional Data - Additional Objective Data Height/Weight: Height 5 ft 6 in Weight 84.504 kg BSA for Today's Weight 1.98 Distress Screening: RN Distress Screening Start: 07/22/17 16:17 Freq: Q30D Status: Active Protocol: Document 01/19/22 09:00 KB (Rec: 01/19/22 09:01 KB [id number]) Distress Screening Distress screening follow up: Will follow with patient for any needs at next visit. Anxious about making next appointment time. - Lab Results Diagram of Most Recent CBC and CMP 05/31/22 10:30 05/31/22 10:30 - Home Medications and Allergies Allergies/Adverse Reactions: Allergies lenalidomide [From Revlimid] Allergy (Mild, Verified 07/13/22 10:00) Rash oxybutynin Allergy (Verified 07/13/22 10:00) Rash pregabalin [From Lyrica] Allergy (Verified 07/13/22 10:00) double vision Home Medications: Home Medications Fish Oil 1,200 cap PO BID 07/14/17 [History Confirmed 07/13/22] insulin lispro 100 unit/mL subcutaneous pen (Humalog KwikPen (U-100) Insulin) See Protocol subcut ACHS PRN DIABETES 07/14/17 [History Confirmed 07/13/22] sodium bicarbonate 650 mg tablet 650 mg PO BID 07/14/17 [History Confirmed 07/13/22] cholecalciferol (vitamin D3) 125 mcg (5,000 unit) tablet (Vitamin D3) 1,000 unitPO DAILY 08/10/18 [History Confirmed 07/13/22] insulin NPH isoph U-100 human 100 unit/mL (3 mL) subcutaneous pen (Humulin N NPHU-100 Insulin KwikPen) 12 unit subcut QPM 08/10/18 [History Confirmed 07/13/22] atorvastatin 40 mg tablet 40 mg PO DAILY 08/23/18 [History Confirmed 07/13/22] amlodipine 10 mg tablet 5 mg PO DAILY 09/20/18 [History Confirmed 07/13/22] aspirin 81 mg chewable tablet 81 mg PO DAILY 10/18/18 [History Confirmed 07/13/22] cyanocobalamin (vitamin B-12) 1,000 mcg tablet 1,000 mcg PO DAILY 05/02/19 [History Confirmed 07/13/22] acyclovir 400 mg tablet 400 mg PO BID 11/07/19 [History Confirmed 07/13/22] carvedilol 12.5 mg tablet (Coreg) 12.5 mg PO BID 30 days #60 tabs 11/07/19 [Rx Confirmed 07/13/22] rivaroxaban 15 mg tablet (Xarelto) 15 mg PO DAILY 30 days #30 tabs 11/07/19 [Rx Confirmed 07/13/22] cyclobenzaprine 10 mg tablet 10 mg PO TID PRN Pain #15 tabs 11/04/20 [Rx Confirmed 07/13/22] sodium citrate-citric acid 490 mg-640 mg/5 mL oral solution (Oracit) 10 ml PO QID 06/16/21 [History Confirmed 07/13/22] Dictated By: Claire Choi II, DO DD/ 55 Signed By: <Electronically signed by Claire Choi II, DO> 08/03/221658 [facility] Work Phone: [phone]) 459-732209-20-2022 Progress note Author Claire Choi [facility] August 03, 2022 5:01pm Note Date/Time August 03, 2022 5:00pm [facility] [place] [address] Hem/Onc Follow Up Note - OP Signed Patient: Hailee Trivedi MR#: [id number] : 1940 Acct:[id number] Age/Sex: 82 / F Type: REG RCR Copies to: Curt Clark MD~ Date of Service: 07/13/2022 - Assessment & Plan (1) Multiple myeloma Plan: 81 year old female with a long history of multiple myeloma currently on Daratumumab. Previously evaluated for consideration of autologous transplant and was not a candidate. Her myeloma is refractory to VCD, she could not tolerate Revlimid, and she progressed on Carfilzomib. She is tolerating therapy with daratumumab well. Within one month of starting irma in 2015 she had 95% reduction in K light chains and have been normal since. March 2022 her M spike remains undetectable. Continues on Daratumumab Will continue with treatment every 6 weeks. -- SPEP, SFLC at each cycle --24hr UPEP and FLC every 3 cycles --Continue Acyclovir 400 mg BID prophylaxis Lytic lesions completed Pamidronate 60 mg monthly for 2 years. She was switched to every 3 month but stopped after 04/2018 since she stayed in remission for total of 2 years. Last dose was 04/19/2018. 01/29/22 bone survey notes stable with one lytic lesion in R humeral head Vitamin B12 deficiency Antibodies for parietal cells and intrinsic factor were normal. Switched to oral Vit B12 in 04/2019. Repeat B12 level in 07/2019 was 900 and 506 in 11/02. -- Continue oral vitamin B12 at 1000mcg daily. L leg weakness New since end of March 2022- this is being managed by her neurologist. Head CT done March 2022 at [facility] without new/acute findings. May suggest brain MRI if no other etiologies identified - History of Present Illness Chief Complaint: Patient is here for a 3 month follow up with outside labs for review. States she has had ongoing lower back pain for the last month or so. Patient scheduled for Cycle 55 Daratumumab today. 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 -ISS stage III, beta-2 and microglobulin 3.8 on 07/05/2014, albumin 3.5. -Bone survey showed lucent areas in the calvarium and distal right humerus. -Autologous stem cell transplantation evaluated by Dr. Yossi Bradshaw, not a candidate. 10/06/21 Dr. Bello note- She is here for routine follow-up. Her most recent SPEP showed M spike at 0.1. She is on monthly daratumumab for myeloma. She will be getting her treatment today and we have been trying to transfer her care to [place] [facility] but they are not up to doing transfusions yet. 12/16/21 Dr. Bello note- She is here for routine follow-up. She has been absent because of a prolonged Covid infection. She is presenting December 16 to resume her daratumumab. She was previously on monthly maintenance daratumumab for multiple myeloma. Shewas given the Darzalex shot but did not tolerate this and is now on monthly intravenous daratumumab. 01/18/22 Seen via video visit with Dr. Choi. Her myeloma is refractory to VCD, she could not tolerate Revlimid, and she progressed on Carfilzomib. She is tolerating therapy with daratumumab well. Within one month of starting irma in 2015 she had 95% reduction in K light chains and have been normal since. She is questioning whether she needs to stay on treatment. Serologically she has been nearly undetectable for 5 years. We decided in January 2021 to space her treatments out to every 6 weeks. will consider further spacing if she is doing well in 6 months. 04/13/22 She is doing ok overall, still with quite a bit of fatigue on treatment she denies n/v/d/c, no abdominal pain, chest pain or dyspnea she notes left leg weakness x 1 week, sees neurology (followed at [facility]) who have ruled out stroke, CT brain without acute findings. She is using a cane and walker as her leg will just go out on her occasionally. No other symptoms with this otherwise she denies any new complaints. no fever, chills, sweats or recent infections 07/13/22 labs remain stable, 0.2 M spike. creat 2.38 - Physical Exam CONSTITUTIONAL: Awake, Alert and in No Acute Distress HEENT: Eyes were reactive to light bilaterally, anicteric sclere without conjunctival pallor. Nasal mucosa was non-erythematous. Mucous membranes were moist. Oral mucosa was without lesions or petechiae. Dentition was normal. NECK: There were no masses in the neck. Trachea was midline. Thyroid was not enlarged. LYMPHATIC: No auricular, anterior/posterior cervical, supraclavicular, infraclavicular, axillary, or inguinal adenopathy appreciated RESPIRATORY: CTA bilaterally, no wheezes, rhonchi or rales CARDIAC: RRR. No murmurs, gallops or rubs. No edema MUSCULOSKELETAL: Gait was normal. No clubbing or cyanosis noted. SKIN: No rashes, lesions, nodules, ecchymoses, erythema or petechiae were noted. PSYCHIATRIC: Oriented to time, place and person. Memory was intact. Mood was normal and affect was appropriate to mood. Goal of Treatment: Palliative - Time with Patient Coordination of Care & Counseling Time: Greater than 50% of time spent with patient was for coordination of care (as documented) and [id number] counseling of patient and/or family. [facility] - Medical History Medical History: Medical History (Last Updated 12/16/21 @ 12:55 by Courtney Jackman) Afib CKD (chronic kidney disease) COVID-19 CVA (cerebral vascular accident) Diabetes HTN (hypertension) Hyperlipidemia Kidney stone Multiple myeloma - Surgical History Surgical History: Surgical History (Last Reviewed 12/16/21 @ 12:55 by Courtney Jackman) History of cholecystectomy History of hemorrhoidectomy History of hysterectomy History of renal stent Hx of lithotripsy - Social History Smoking Status: Never smoker Substance Use Type: None Additional Data - Additional Objective Data Height/Weight: Height 5 ft 6 in Weight 84.504 kg BSA for Today's Weight 1.98 Distress Screening: RN Distress Screening Start: 07/22/17 16:17 Freq: Q30D Status: Active Protocol: Document 01/19/22 09:00 KB (Rec: 01/19/22 09:01 KB [id number]) Distress Screening Distress screening follow up: Will follow with patient for any needs at next visit. Anxious about making next appointment time. - Lab Results Diagram of Most Recent CBC and CMP 05/31/22 10:30 05/31/22 10:30 - Home Medications and Allergies Allergies/Adverse Reactions: Allergies lenalidomide [From Revlimid] Allergy (Mild, Verified 07/13/22 10:00) Rash oxybutynin Allergy (Verified 07/13/22 10:00) Rash pregabalin [From Lyrica] Allergy (Verified 07/13/22 10:00) double vision Home Medications: Home Medications Fish Oil 1,200 cap PO BID 07/14/17 [History Confirmed 07/13/22] insulin lispro 100 unit/mL subcutaneous pen (Humalog KwikPen (U-100) Insulin) See Protocol subcut ACHS PRN DIABETES 07/14/17 [History Confirmed 07/13/22] sodium bicarbonate 650 mg tablet 650 mg PO BID 07/14/17 [History Confirmed 07/13/22] cholecalciferol (vitamin D3) 125 mcg (5,000 unit) tablet (Vitamin D3) 1,000 unitPO DAILY 08/10/18 [History Confirmed 07/13/22] insulin NPH isoph U-100 human 100 unit/mL (3 mL) subcutaneous pen (Humulin N NPHU-100 Insulin KwikPen) 12 unit subcut QPM 08/10/18 [History Confirmed 07/13/22] atorvastatin 40 mg tablet 40 mg PO DAILY 08/23/18 [History Confirmed 07/13/22] amlodipine 10 mg tablet 5 mg PO DAILY 09/20/18 [History Confirmed 07/13/22] aspirin 81 mg chewable tablet 81 mg PO DAILY 10/18/18 [History Confirmed 07/13/22] cyanocobalamin (vitamin B-12) 1,000 mcg tablet 1,000 mcg PO DAILY 05/02/19 [History Confirmed 07/13/22] acyclovir 400 mg tablet 400 mg PO BID 11/07/19 [History Confirmed 07/13/22] carvedilol 12.5 mg tablet (Coreg) 12.5 mg PO BID 30 days #60 tabs 11/07/19 [Rx Confirmed 07/13/22] rivaroxaban 15 mg tablet (Xarelto) 15 mg PO DAILY 30 days #30 tabs 11/07/19 [Rx Confirmed 07/13/22] cyclobenzaprine 10 mg tablet 10 mg PO TID PRN Pain #15 tabs 11/04/20 [Rx Confirmed 07/13/22] sodium citrate-citric acid 490 mg-640 mg/5 mL oral solution (Oracit) 10 ml PO QID 06/16/21 [History Confirmed 07/13/22] Dictated By: Claire Choi II, DO DD/ 99 Signed By: <Electronically signed by Claire Choi II, DO> 08/03/221700 [facility] Work Phone: [phone] Evaluation note* Encounter Date Diagnosis Assessment Notes Treatment Notes Treatment Clinical Notes Jun, Nephrolithiasis (ICD -10 - N20.0) Her 24 hr urine stone studies showed Hypocitruria. She did not tolerate Potassium Citrate due to hyperkalemia. Continue Oracit for for kidney stones prophylaxis.I have advised her to adequately hydrate herself. 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 with proteinuria less than 1 g. Her renal US showed B/L simple renal cyst. I have d/w her the importance of good DM and HTN control to slow down the progression of CKD Jun, Hypertensive chronic kidney disease with stage 1 through stage 4 chronic kidney disease, or unspecified chronic kidney disease (ICD-10 - I12.9) Blood pressure is usually well controlled on current regimen. Continue current medications. I have advised her to monitor blood pressure at home and if it stays above 140/90 mmHg then call office. 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 Continue follow-up [facility] PCP for diabetes mellitus management. She is not on MARK or ARB due to the advanced CKD. Jun, Secondary hyperparathyroidism of renal origin (ICD-10 - N25.81) PTH is at goal. I have advised her to take low phosphorus diet Jun, Metabolic acidosis (ICD-10 - E87.2) She has a metabolic acidosis due to the CKD. Continue oral sodium bicarbonate. Jun, Vitamin D deficiency (ICD-10 - E55.9) Vit D is within the goal. I will continue the current treatment. Jun, Microscopic hematuri a (ICD-10 - R31.29) She has microscopic hematuria likely due to Nephrolithiasis. She follows with Urologist Dr. Lou. She has hypocirturia but cannot tolerate Potassium Citrate due to hyperkalemia Jun, Multiple myeloma (IC D-10 - C90.00) Follows with [facility] [employer] Other 07-08-2022 History general Narrative - Reported* Type Description Date Medical History DM II Medical History CVA OF CEREBELLUM Medical History COVID 05-21-2022 Medical History Hypertension Medical History Kidney stones Medical History Multiple myeloma Medical History History of kidney stones Medical History Hyperlipemia Medical History Stage 4 chronic kidney disease Medical History Anemia in CKD (chronic kidney di sease) Medical History Nephrolithiasis Medical History Asymptomatic proteinuria Medical History Secondary hyperparathyroidism Medical History A-FIB Surgical History cholecystectomy Surgical History total hysterectomy 1989 Surgical History hemorrhoidectomy Surgical History CHEMO 06/2016 Surgical History lithotripsey 03/09/18 Surgical History Lithotripsey 02-09-2018 Surgical History left kidney stent 12-27-19 Surgical History LITHOTRIPSEY 01/24/2020 Surgical History STENT REMOVAL 03/03/2021 Surgical History KIDNEY STONES X 3 WITH LASER 02/19/2021 Hospitalization History SEE ABOVE SURGERY Hospitalization History [facility]-DEHYDRATION/RASH Hospitalization History COVID 10/2021 [facility] Other 07-08-2022 History general Narrative - Reported* Type Description Date Medical History DM II Medical History CVA OF CEREBELLUM Medical History COVID 05-21-2022 Medical History Hypertension Medical History Kidney stones Medical History Multiple myeloma Medical History History of kidney stones Medical History Hyperlipemia Medical History Stage 4 chronic kidney disease Medical History Anemia in CKD (chronic kidney di sease) Medical History Nephrolithiasis Medical History Asymptomatic proteinuria Medical History Secondary hyperparathyroidism Medical History A-FIB Medical History VERTIGO PER [facility] 06/19/2023 Surgical History cholecystectomy Surgical History total hysterectomy 1989 Surgical History hemorrhoidectomy Surgical History CHEMO 06/2016 Surgical History lithotripsey 03/09/18 Surgical History Lithotripsey 02-09-2018 Surgical History left kidney stent 12-27-19 Surgical History LITHOTRIPSEY 01/24/2020 Surgical History STENT REMOVAL 03/03/2021 Surgical History KIDNEY STONES X 3 WITH LASER 02/19/2021 Hospitalization History SEE ABOVE SURGERY Hospitalization History [facility]-DEHYDRATION/RASH Hospitalization History COVID 10/2021 [facility] Other 05-31-2022 Progress note Author Misti Connolly [facility] April 13, 2022 11:35am Note Date/Time April 13, 2022 9:33a m [facility] at [address] [address] Hem/Onc Follow Up Note - OP Signed Patient: Hailee Trivedi MR#: [id number] : 1940 Acct:[id number] Age/Sex: 81 / F Type: REG RCR Copies to: MD Claire Napier, II, DO~ Date of Service: 04/13/2022 Time of Service: 09:33 - Assessment & Plan (1) Multiple myeloma Plan: 81 year old female with a long history of multiple myeloma currently on Daratumumab. Previously evaluated for consideration of autologous transplant and was not a candidate. Her myeloma is refractory to VCD, she could not tolerate Revlimid, and she progressed on Carfilzomib. She is tolerating therapy with daratumumab well. Within one month of starting irma in 2015 she had 95% reduction in K light chains and have been normal since. March 2022 her M spike remains undetectable. Continues on Daratumumab Will continue with treatment every 6 weeks. Previously was discussed if she needs to continue with treatment, will make this determination at her Jun 2022 visit -- SPEP, SFLC at each cycle --24hr UPEP and FLC every 3 cycles --Continue Acyclovir 400 mg BID prophylaxis Lytic lesions completed Pamidronate 60 mg monthly for 2 years. She was switched to every 3 month but stopped after 04/2018 since she stayed in remission for total of 2 years. Last dose was 04/19/2018. 01/29/22 bone survey notes stable with one lytic lesion in R humeral head Vitamin B12 deficiency Antibodies for parietal cells and intrinsic factor were normal. Switched to oral Vit B12 in 04/2019. Repeat B12 level in 07/2019 was 900 and 506 in 11/02. -- Continue oral vitamin B12 at 1000mcg daily. L leg weakness New since end of March 2022- this is being managed by her neurologist. Head CT done March 2022 at [facility] without new/acute findings. May suggest brain MRI if no other etiologies identified Follow Up Instructions: Irma today and continue every 6 weeks myeloma labs on irma days here cbc, cmp at [facility] prior to treatment follow-up with Dr. Quiroga in 3mo - History of Present Illness Chief Complaint: Patient is here today for 2 month follow up visit for multiple myeloma. 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 -ISS stage III, beta-2 and microglobulin 3.8 on 07/05/2014, albumin 3.5. -Bone survey showed lucent areas in the calvarium and distal right humerus. -Autologous stem cell transplantation evaluated by Dr. Yossi Bradshaw, not a candidate. 10/06/21 Dr. Bello note- She is here for routine follow-up. Her most recent SPEP showed M spike at 0.1. She is on monthly daratumumab for myeloma. She will be getting her treatment today and we have been trying to transfer her care to [place] [facility] but they are not up to doing transfusions yet. 12/16/21 Dr. Bello note- She is here for routine follow-up. She has been absent because of a prolonged Covid infection. She is presenting December 16 to resume her daratumumab. She was previously on monthly maintenance daratumumab for multiple myeloma. Shewas given the Darzalex shot but did not tolerate this and is now on monthly intravenous daratumumab. 01/18/22 Seen via video visit with Dr. Choi. Her myeloma is refractory to VCD, she could not tolerate Revlimid, and she progressed on Carfilzomib. She is tolerating therapy with daratumumab well. Within one month of starting irma in 2015 she had 95% reduction in K light chains and have been normal since. She is questioning whether she needs to stay on treatment. Serologically she has been nearly undetectable for 5 years. We decided in January 2021 to space her treatments out to every 6 weeks. will consider further spacing if she is doing well in 6 months. 04/13/22 She is doing ok overall, still with quite a bit of fatigue on treatment she denies n/v/d/c, no abdominal pain, chest pain or dyspnea she notes left leg weakness x 1 week, sees neurology (followed at [facility]) who have ruled out stroke, CT brain without acute findings. She is using a cane and walker as her leg will just go out on her occasionally. No other symptoms with this otherwise she denies any new complaints. no fever, chills, sweats or recent infections labs remain stable, no M spike Summary of Therapies: 1. Velcade/dexamethasone induction regimen with dexamethasone 20 mg started 07/08/2014, kappa light chain decreased to 833 and 33 from 7000 in October 2014. 2. Tried Revlimid in September 2014, discontinued 11/02/2014 due to suspicion that it may cause itching. 3. Velcade 1.3 mg/m sq weekly along with dexamethasone 6 mg p.o. weekly, light chain improved from 833 to 570 as of 04/18/2015, then increased again in May 2015. 4. Velcade induction regimen restarted with dexamethasone 20 mg p.o. weekly on 07/01 patient experienced extreme fatigue due to dehydration from hyperglycemia and diarrhea. 5. Velcade 1.3 mg with dexamethasone 6 mg and cyclophosphamide 300 mg IV [id number]/15/2015, developed grade 2 anemia, fatigue and grade 3 diarrhea. Cyclophosphamide was switched to p.o. 50 mg three weeks on, one week off on 09/26/2015, however, free kappa light chain went down to 1179 on 10/24/2015. 6. Carfilzomib 20 mg/m2 on days 1,2,8,9,15,16 of a 21 day cycle, started on 11/04/2015-02/24/2016. Discontinued due to disease progression. -Dose escalated to 27mg/m2 in cycle 2, on 12/17/2015. Dose reduced to 20mg/m2 on cycle 4 day 15 due to grade 2 fatigue. CURRENT THERAPY 7. Daratumumab 03/17/2016-. Total 39 cycles. -03/17/16-05/05/16, weekly. -05/19/16-08/25/16, biweekly. -09/22/16-, every 4 weeks. 09/21/2017 held due to dizziness, resumed 12/21/2017. Skip treatment on 12/13/18 per patient request. -07/2019-, every 6 week per patient request. -Dose held in 01/2020 and 02/2020 due to COVID-19 pandemics. -Resumed every 4 weeks cycle on 03/19/20. Switched to DARZALEX Faspro 01/12/2021, profound fatigue after 1 cycle. -Switching back to infusional Daratumumab 02/17/21. Resumed intravenous daratumumab September 08, 2021 - every 6 week treatments 2. VitB12 injections, monthly, switched to oral in 04/2019. - Physical Exam CONSTITUTIONAL: Awake, Alert and in No Acute Distress HEENT: Eyes were reactive to light bilaterally, anicteric sclere without conjunctival pallor. Nasal mucosa was non-erythematous. Mucous membranes were moist. Oral mucosa was without lesions or petechiae. Dentition was normal. NECK: There were no masses in the neck. Trachea was midline. Thyroid was not enlarged. LYMPHATIC: No auricular, anterior/posterior cervical, supraclavicular, infraclavicular, axillary, or inguinal adenopathy appreciated RESPIRATORY: CTA bilaterally, no wheezes, rhonchi or rales CARDIAC: RRR. No murmurs, gallops or rubs. No edema MUSCULOSKELETAL: Gait was normal. No clubbing or cyanosis noted. SKIN: No rashes, lesions, nodules, ecchymoses, erythema or petechiae were noted. PSYCHIATRIC: Oriented to time, place and person. Memory was intact. Mood was normal and affect was appropriate to mood. Goal of Treatment: Palliative - Time with Patient Coordination of Care & Counseling Time: Greater than 50% of time spent with patient was for coordination of care (as documented) and [id number] counseling of patient and/or family. [facility] - Medical History Medical History: Medical History (Last Updated 12/16/21 @ 12:55 by Courtney Jackman) Afib CKD (chronic kidney disease) COVID-19 CVA (cerebral vascular accident) Diabetes HTN (hypertension) Hyperlipidemia Kidney stone Multiple myeloma - Surgical History Surgical History: Surgical History (Last Reviewed 12/16/21 @ 12:55 by Courtney Jackman) History of cholecystectomy History of hemorrhoidectomy History of hysterectomy History of renal stent Hx of lithotripsy - Social History Smoking Status: Never smoker Substance Use Type: None Additional Data - Additional Objective Data Height/Weight: Height 5 ft 6 in Weight 84.822 kg BSA for Today's Weight 1.99 Vital Signs: 04/13/22 08:33 Temperature 97.8 F Pulse Rate [Left Brachial] 72 Respiratory Rate 16 Blood Pressure [Right Arm] 115/72 02 Sat by Pulse Oximetry 98 Distress Screening: RN Distress Screening Start: 07/22/17 16:17 Freq: Q30D Status: Active Protocol: Document 01/19/22 09:00 KB (Rec: 01/19/22 09:[id number]) Distress Screening Distress screening follow up: Will follow with patient for any needs at next visit. Anxious about making next appointment time. - Lab Results Diagram of Most Recent CBC and CMP 04/08/22 13:20 04/08/22 13:20 Labs - Last 7 Days 04/08/22 13:20: Serum Total Protein 5.9 L, Albumin (Send Out) 3.6, Globulin (PEP) 2.3, Albumin/Globulin (PEP) 1.6, Wpgrz-6-Kqwjnogue 0.1, Xxqwj-9-Kxutekdcf 0.8, Beta Globulins 0.7, Gamma Globulins 0.6, M-Krystian Not observed, PEP Note , Free [place] LC, Quant 17.7, Free Lambda LC, Quant 10.0, Free [place]/Lambda Ratio 1.77 H 04/08/22 13:20: PHA Creatinine Clear 21.38, Sodium 136, Potassium 4.6, Chloride 107, Carbon Dioxide 19.8 L, BUN 27 H, Creatinine 2.35 H, Est GFR ( Amer) 24, Est GFR (Non-Af Amer) 20, Glucose 119 H, Calcium 8.8, Total Bilirubin 0.5, AST 17, ALT 18, Alkaline Phosphatase 89, Total Protein 6.1, Albumin 3.6, Globulin 2.5, Albumin/Globulin Ratio 1.4 04/08/22 13:20: Corrected WBC 8.5, Uncorrected WBC Count 8.5, RBC 4.07, Hgb 12.8, Hct 38.8, MCV 95.4, MCH 31.6, MCHC 33.1, RDW 14.2, Plt Count 199, MPV 9.7, Neut % (Auto) 54.1, Lymph % (Auto) 38.9, [place] % (Auto) 5.8, Eos % (Auto) 0.7, Baso % (Auto) 0.5, Neut # (Auto) 4.6, Lymph # (Auto) 3.3, [place] # (Auto) 0.5, Eos# (Auto) 0.1, Baso # (Auto) 0.0, Nucleated RBC % (auto) 0.0 - Home Medications and Allergies Allergies/Adverse Reactions: Allergies lenalidomide [From Revlimid] Allergy (Mild, Verified 04/13/22 08:31) Rash oxybutynin Allergy (Verified 04/13/22 08:31) Rash pregabalin [From Lyrica] Allergy (Verified 04/13/22 08:31) double vision Home Medications: Home Medications Fish Oil 1,200 cap PO BID 07/14/17 [History Confirmed 04/13/22] insulin lispro 100 unit/mL subcutaneous pen (Humalog KwikPen (U-100) Insulin) See Protocol SUB-Q ACHS PRN 07/14/17 [History Confirmed 04/13/22] sodium bicarbonate 650 mg tablet 650 mg PO BID 07/14/17 [History Confirmed 04/13/22] cholecalciferol (vitamin D3) 125 mcg (5,000 unit) tablet (Vitamin D3) 1,000 unitPO DAILY 08/10/18 [History Confirmed 04/13/22] insulin NPH isoph U-100 human 100 unit/mL (3 mL) subcutaneous pen (Humulin N NPHU-100 Insulin KwikPen) 12 unit SUBCUT QPM 08/10/18 [History Confirmed 04/13/22] atorvastatin 40 mg tablet 40 mg PO DAILY 08/23/18 [History Confirmed 04/13/22] amlodipine 10 mg tablet 5 mg PO DAILY 09/20/18 [History Confirmed 04/13/22] aspirin 81 mg chewable tablet 81 mg PO DAILY 10/18/18 [History Confirmed 04/13/22] cyanocobalamin (vitamin B-12) 1,000 mcg tablet 1,000 mcg PO DAILY 05/02/19 [History Confirmed 04/13/22] acyclovir 400 mg tablet 400 mg PO BID 11/07/19 [History Confirmed 04/13/22] carvedilol 12.5 mg tablet (Coreg) 12.5 mg PO BID 30 Days #60 tab 11/07/19 [Rx Confirmed 04/13/22] rivaroxaban 15 mg tablet (Xarelto) 15 mg PO DAILY 30 Days #30 tab 11/07/19 [Rx Confirmed 04/13/22] cyclobenzaprine 10 mg tablet 10 mg PO TID PRN #15 tab 11/04/20 [Rx Confirmed 04/13/22] sodium citrate-citric acid 490 mg-640 mg/5 mL oral solution (Oracit) 10 ml PO QID 06/16/21 [History Confirmed 04/13/22] Dictated By: Misti Connolly APRN DD/ [id number] Signed By: <Electronically signed by RAMAKRISHNA Connolly> 04/13/22 1135 [facility] Work Phone: [phone]) 994-909104-25-2022 Hospital Discharge instructions Patient Education 03/08/2022 11:37:40 Calorie Counting for Weight Loss Calorie Counting for Weight Loss Calories are units of energy. Your body needs a certain amount of calories from food to keep you going throughout the day. When you eat more calories than your body needs, your body stores the extra calories as fat. When you eat fewer calories than your body needs, your body davies fat to get the energy it needs. Calorie counting means keeping track of how many calories you eat and drink each day. Calorie counting can be helpful if you need to lose weight. If you make sure to eat fewer calories than your bodyneeds, you should lose weight. Ask your health care provider what a healthy weight is for you. For calorie counting to work, you will need to eat the right number of calories in a day in order to lose a healthy amount of weight per week. A dietitian can help you determine how many calories youneed in a day and will give you suggestions on how to reach your calorie goal. A healthy amount of weight to lose per week is usually 1 2 lb (0.5 0.9 kg). This usually means thatyour daily calorie intake should be reduced by 500 750 calories. Eating 1,200 1,500 calories per day can help most women lose weight. Eating 1,500 1,800 calories per day can help most men lose weight. What is my plan? My goal is to have calories per day. If I have this many calories per day, I should lose around pounds per week. What do I need to know about calorie counting? In order to meet your daily calorie goal, you will need to: Find out how many calories are in each food you would like to eat. Try to do this before you eat. Decide how much of the food you plan to eat. Write down what you ate and how many calories it had. Doing this is called keeping a food log. To successfully lose weight, it is important to balance calorie counting with a healthy lifestyle that includes regular activity. Aim for 150 minutes of moderate exercise (such as walking) or 75 minutes of vigorous exercise (such as running) each week. Where do I find calorie information? The number of calories in a food can be found on a Nutrition Facts label. If a food does not have aNutrition Facts label, try to look up the calories online or ask your dietitian for help. Remember that calories are listed per serving. If you choose to have more than one serving of a food, you will have to multiply the calories per serving by the amount of servings you plan to eat. Forexample, the label on a package of bread might say that a serving size is 1 slice and that there are 90 calories in a serving. If you eat 1 slice, you will have eaten 90 calories. If you eat 2 slices, you will have eaten 180 calories. How do I keep a food log? Immediately after each meal, record the following information in your food log: What you ate. Don't forget to include toppings, sauces, and other extras on the food. How much you ate. This can be measured in cups, ounces, or number of items. How many calories each food and drink had. The total number of calories in the meal. Keep your food log near you, such as in a small notebook in your pocket, or use a mobile baljit or website. Some programs will calculate calories for you and show you how many calories you have left forthe day to meet your goal. What are some calorie counting tips? Use your calories on foods and drinks that will fill you up and not leave you hungry: ?Some examples of foods that fill you up are nuts and nut butters, vegetables, lean proteins, and high-fiber foods like whole grains. High-fiber foods are foods with more than 5 g fiber per serving. ?Drinks such as sodas, specialty coffee drinks, alcohol, and juices have a lot of calories, yet do not fill you up. Eat nutritious foods and avoid empty calories. Empty calories are calories you get from foods or beverages that do not have many vitamins or protein, such as candy, sweets, and soda. It is better to have a nutritious high-calorie food (such as an avocado) than a food with few nutrients (such as a bag of chips). Know how many calories are in the foods you eat most often. This will help you calculate calorie counts faster. Pay attention to calories in drinks. Low-calorie drinks include water and unsweetened drinks. Pay attention to nutrition labels for low fat or fat free foods. These foods sometimes have thesame amount of calories or more calories than the full fat versions. They also often have added sugar, starch, or salt, to make up for flavor that was removed with the fat. Find a way of tracking calories that works for you. Get creative. Try different apps or programs ifwriting down calories does not work for you. What are some portion control tips? Know how many calories are in a serving. This will help you know how many servings of a certain food you can have. Use a measuring cup to measure serving sizes. You could also try weighing out portions on a kitchenscale. With time, you will be able to estimate serving sizes for some foods. Take some time to put servings of different foods on your favorite plates, bowls, and cups so you know what a serving looks like. Try not to eat straight from a bag or box. Doing this can lead to overeating. Put the amount you would like to eat in a cup or on a plate to make sure you are eating the right portion. Use smaller plates, glasses, and bowls to prevent overeating. Try not to multitask (for example, watch TV or use your computer) while eating. If it is time to eat, sit down at a table and enjoy your food. This will help you to know when you are full. It will also help you to be aware of what you are eating and how much you are eating. What are tips for following this plan? Reading food labels Check the calorie count compared to the serving size. The serving size may be smaller than what youare used to eating. Check the source of the calories. Make sure the food you are eating is high in vitamins and proteinand low in saturated and trans fats. Shopping Read nutrition labels while you shop. This will help you make healthy decisions before you decide to purchase your food. Make a grocery list and stick to it. Cooking Try to cook your favorite foods in a healthier way. For example, try baking instead of frying. Use low-fat dairy products. Meal planning Use more fruits and vegetables. Half of your plate should be fruits and vegetables. Include lean proteins like poultry and fish. How do I count calories when eating out? Ask for smaller portion sizes. Consider sharing an entree and sides instead of getting your own entree. If you get your own entree, eat only half. Ask for a box at the beginning of your meal and put the rest of your entree in it so you are not tempted to eat it. If calories are listed on the menu, choose the lower calorie options. Choose dishes that include vegetables, fruits, whole grains, low-fat dairy products, and lean protein. Choose items that are boiled, broiled, grilled, or steamed. Stay away from items that are buttered,battered, fried, or served with cream sauce. Items labeled crispy are usually fried, unless stated otherwise. Choose water, low-fat milk, unsweetened iced tea, or other drinks without added sugar. If you want an alcoholic beverage, choose a lower calorie option such as a glass of wine or light beer. Ask for dressings, sauces, and syrups on the side. These are usually high in calories, so you should limit the amount you eat. If you want a salad, choose a garden salad and ask for grilled meats. Avoid extra toppings like calles, cheese, or fried items. Ask for the dressing on the side, or ask for olive oil and vinegar or lemon to use as dressing. Estimate how many servings of a food you are given. For example, a serving of cooked rice is cup orabout the size of half a baseball. Knowing serving sizes will help you be aware of how much food you are eating at restaurants. The list below tells you how big or small some common portion sizes arebased on everyday objects: ?1 oz 4 stacked dice. ?3 oz 1 deck of cards. ?1 tsp 1 . ?1 Tbsp a ping-pong ball. ?2 Tbsp 1 ping-pong ball. ? cup baseball. ?1 cup 1 baseball. Summary Calorie counting means keeping track of how many calories you eat and drink each day. If you eat fewer calories than your body needs, you should lose weight. A healthy amount of weight to lose per week is usually 1 2 lb (0.5 0.9 kg). This usually means reducing your daily calorie intake by 500 750 calories. The number of calories in a food can be found on a Nutrition Facts label. If a food does not have aNutrition Facts label, try to look up the calories online or ask your dietitian for help. Use your calories on foods and drinks that will fill you up, and not on foods and drinks that will leave you hungry. Use smaller plates, glasses, and bowls to prevent overeating. This information is not intended to replace advice given to you by your health care provider. Make sure you discuss any questions you have with your health care provider. Document Released: 10/31/2006 Document Revised: 07/20/2019 Document Reviewed: 09/30/2017 [employer] Patient Education 2020 [employer]. 03/08/2022 11:37:40 Calorie Counting for Weight Loss Calorie Counting for Weight Loss Calories are units of energy. Your body needs a certain amount of calories from food to keep you going throughout the day. When you eat more calories than your body needs, your body stores the extra calories as fat. When you eat fewer calories than your body needs, your body davies fat to get the energy it needs. Calorie counting means keeping track of how many calories you eat and drink each day. Calorie counting can be helpful if you need to lose weight. If you make sure to eat fewer calories than your bodyneeds, you should lose weight. Ask your health care provider what a healthy weight is for you. For calorie counting to work, you will need to eat the right number of calories in a day in order to lose a healthy amount of weight per week. A dietitian can help you determine how many calories youneed in a day and will give you suggestions on how to reach your calorie goal. A healthy amount of weight to lose per week is usually 1 2 lb (0.5 0.9 kg). This usually means thatyour daily calorie intake should be reduced by 500 750 calories. Eating 1,200 1,500 calories per day can help most women lose weight. Eating 1,500 1,800 calories per day can help most men lose weight. What is my plan? My goal is to have calories per day. If I have this many calories per day, I should lose around pounds per week. What do I need to know about calorie counting? In order to meet your daily calorie goal, you will need to: Find out how many calories are in each food you would like to eat. Try to do this before you eat. Decide how much of the food you plan to eat. Write down what you ate and how many calories it had. Doing this is called keeping a food log. To successfully lose weight, it is important to balance calorie counting with a healthy lifestyle that includes regular activity. Aim for 150 minutes of moderate exercise (such as walking) or 75 minutes of vigorous exercise (such as running) each week. Where do I find calorie information? The number of calories in a food can be found on a Nutrition Facts label. If a food does not have aNutrition Facts label, try to look up the calories online or ask your dietitian for help. Remember that calories are listed per serving. If you choose to have more than one serving of a food, you will have to multiply the calories per serving by the amount of servings you plan to eat. Forexample, the label on a package of bread might say that a serving size is 1 slice and that there are 90 calories in a serving. If you eat 1 slice, you will have eaten 90 calories. If you eat 2 slices, you will have eaten 180 calories. How do I keep a food log? Immediately after each meal, record the following information in your food log: What you ate. Don't forget to include toppings, sauces, and other extras on the food. How much you ate. This can be measured in cups, ounces, or number of items. How many calories each food and drink had. The total number of calories in the meal. Keep your food log near you, such as in a small notebook in your pocket, or use a mobile baljit or website. Some programs will calculate calories for you and show you how many calories you have left forthe day to meet your goal. What are some calorie counting tips? Use your calories on foods and drinks that will fill you up and not leave you hungry: ?Some examples of foods that fill you up are nuts and nut butters, vegetables, lean proteins, and high-fiber foods like whole grains. High-fiber foods are foods with more than 5 g fiber per serving. ?Drinks such as sodas, specialty coffee drinks, alcohol, and juices have a lot of calories, yet do not fill you up. Eat nutritious foods and avoid empty calories. Empty calories are calories you get from foods or beverages that do not have many vitamins or protein, such as candy, sweets, and soda. It is better to have a nutritious high-calorie food (such as an avocado) than a food with few nutrients (such as a bag of chips). Know how many calories are in the foods you eat most often. This will help you calculate calorie counts faster. Pay attention to calories in drinks. Low-calorie drinks include water and unsweetened drinks. Pay attention to nutrition labels for low fat or fat free foods. These foods sometimes have thesame amount of calories or more calories than the full fat versions. They also often have added sugar, starch, or salt, to make up for flavor that was removed with the fat. Find a way of tracking calories that works for you. Get creative. Try different apps or programs ifwriting down calories does not work for you. What are some portion control tips? Know how many calories are in a serving. This will help you know how many servings of a certain food you can have. Use a measuring cup to measure serving sizes. You could also try weighing out portions on a kitchenscale. With time, you will be able to estimate serving sizes for some foods. Take some time to put servings of different foods on your favorite plates, bowls, and cups so you know what a serving looks like. Try not to eat straight from a bag or box. Doing this can lead to overeating. Put the amount you would like to eat in a cup or on a plate to make sure you are eating the right portion. Use smaller plates, glasses, and bowls to prevent overeating. Try not to multitask (for example, watch TV or use your computer) while eating. If it is time to eat, sit down at a table and enjoy your food. This will help you to know when you are full. It will also help you to be aware of what you are eating and how much you are eating. What are tips for following this plan? Reading food labels Check the calorie count compared to the serving size. The serving size may be smaller than what youare used to eating. Check the source of the calories. Make sure the food you are eating is high in vitamins and proteinand low in saturated and trans fats. Shopping Read nutrition labels while you shop. This will help you make healthy decisions before you decide to purchase your food. Make a grocery list and stick to it. Cooking Try to cook your favorite foods in a healthier way. For example, try baking instead of frying. Use low-fat dairy products. Meal planning Use more fruits and vegetables. Half of your plate should be fruits and vegetables. Include lean proteins like poultry and fish. How do I count calories when eating out? Ask for smaller portion sizes. Consider sharing an entree and sides instead of getting your own entree. If you get your own entree, eat only half. Ask for a box at the beginning of your meal and put the rest of your entree in it so you are not tempted to eat it. If calories are listed on the menu, choose the lower calorie options. Choose dishes that include vegetables, fruits, whole grains, low-fat dairy products, and lean protein. Choose items that are boiled, broiled, grilled, or steamed. Stay away from items that are buttered,battered, fried, or served with cream sauce. Items labeled crispy are usually fried, unless stated otherwise. Choose water, low-fat milk, unsweetened iced tea, or other drinks without added sugar. If you want an alcoholic beverage, choose a lower calorie option such as a glass of wine or light beer. Ask for dressings, sauces, and syrups on the side. These are usually high in calories, so you should limit the amount you eat. If you want a salad, choose a garden salad and ask for grilled meats. Avoid extra toppings like calles, cheese, or fried items. Ask for the dressing on the side, or ask for olive oil and vinegar or lemon to use as dressing. Estimate how many servings of a food you are given. For example, a serving of cooked rice is cup orabout the size of half a baseball. Knowing serving sizes will help you be aware of how much food you are eating at restaurants. The list below tells you how big or small some common portion sizes arebased on everyday objects: ?1 oz 4 stacked dice. ?3 oz 1 deck of cards. ?1 tsp 1 . ?1 Tbsp a ping-pong ball. ?2 Tbsp 1 ping-pong ball. ? cup baseball. ?1 cup 1 baseball. Summary Calorie counting means keeping track of how many calories you eat and drink each day. If you eat fewer calories than your body needs, you should lose weight. A healthy amount of weight to lose per week is usually 1 2 lb (0.5 0.9 kg). This usually means reducing your daily calorie intake by 500 750 calories. The number of calories in a food can be found on a Nutrition Facts label. If a food does not have aNutrition Facts label, try to look up the calories online or ask your dietitian for help. Use your calories on foods and drinks that will fill you up, and not on foods and drinks that will leave you hungry. Use smaller plates, glasses, and bowls to prevent overeating. This information is not intended to replace advice given to you by your health care provider. Make sure you discuss any questions you have with your health care provider. Document Released: 10/31/2006 Document Revised: 07/20/2019 Document Reviewed: 09/30/2017 [employer] Patient Education 2020 [employer]. 03/08/2022 11:37:32 Kidney Stones, Rkvf-nd-Ktex Kidney Stones Kidney stones are rock-like masses that form inside of the kidneys. Kidneys are organs that make pee (urine). A kidney stone may move into other parts of the urinary tract, including: The tubes that connect the kidneys to the bladder (ureters). The bladder. The tube that carries urine out of the body (urethra). Kidney stones can cause very bad pain and can block the flow of pee. The stone usually leaves your body (passes) through your pee. You may need to have a doctor take out the stone. What are the causes? Kidney stones may be caused by: A condition in which certain glands make too much parathyroid hormone (primary hyperparathyroidism). A buildup of a type of crystals in the bladder made of a chemical called uric acid. The body makes uric acid when you eat certain foods. Narrowing (stricture) of one or both of the ureters. A kidney blockage that you were born with. Past surgery on the kidney or the ureters, such as gastric bypass surgery. What increases the risk? You are more likely to develop this condition if: You have had a kidney stone in the past. You have a family history of kidney stones. You do not drink enough water. You eat a diet that is high in protein, salt (sodium), or sugar. You are overweight or very overweight (obese). What are the signs or symptoms? Symptoms of a kidney stone may include: Pain in the side of the belly, right below the ribs (flank pain). Pain usually spreads (radiates) to the groin. Needing to pee often or right away (urgently). Pain when going pee (urinating). Blood in your pee (hematuria). Feeling like you may vomit (nauseous). Vomiting. Fever and chills. How is this treated? Treatment depends on the size, location, and makeup of the kidney stones. The stones will often pass out of the body through peeing. You may need to: Drink more fluid to help pass the stone. In some cases, you may be given fluids through an IV tube put into one of your veins at the hospital. Take medicine for pain. Make changes in your diet to help keep kidney stones from coming back. Sometimes, medical procedures are needed to remove a kidney stone. This may involve: A procedure to break up kidney stones using a beam of light (laser) or shock waves. Surgery to remove the kidney stones. Follow these instructions at home: Medicines Take orxs-xvl-tivnhes and prescription medicines only as told by your doctor. Ask your doctor if the medicine prescribed to you requires you to avoid driving or using heavy machinery. Eating and drinking Drink enough fluid to keep your pee pale yellow. You may be told to drink at least 8 10 glasses of water each day. This will help you pass the stone. If told by your doctor, change your diet. This may include: ?Limiting how much salt you eat. ?Eating more fruits and vegetables. ?Limiting how much meat, poultry, fish, and eggs you eat. Follow instructions from your doctor about eating or drinking restrictions. General instructions Collect pee samples as told by your doctor. You may need to collect a pee sample: ?24 hours after a stone comes out. ?8 12 weeks after a stone comes out, and every 6 12 months after that. Strain your pee every time you pee (urinate), for as long as told. Use the strainer that your doctor recommends. Do not throw out the stone. Keep it so that it can be tested by your doctor. Keep all follow-up visits as told by your doctor. This is important. You may need follow-up tests. How is this prevented? To prevent another kidney stone: Drink enough fluid to keep your pee pale yellow. This is the best way to prevent kidney stones. Eat healthy foods. Avoid certain foods as told by your doctor. You may be told to eat less protein. Stay at a healthy weight. Where to find more information National Kidney Foundation (NKF): www.kidney.org [facility] (F): www.urologyhealth.org Contact a doctor if: You have pain that gets worse or does not get better with medicine. Get help right away if: You have a fever or chills. You get very bad pain. You get new pain in your belly (abdomen). You pass out (faint). You cannot pee. Summary Kidney stones are rock-like masses that form inside of the kidneys. Kidney stones can cause very bad pain and can block the flow of pee. The stones will often pass out of the body through peeing. Drink enough fluid to keep your pee pale yellow. This information is not intended to replace advice given to you by your health care provider. Make sure you discuss any questions you have with your health care provider. Document Released: 04/18/2009 Document Revised: 03/18/2020 Document Reviewed: 03/18/2020 [employer] Patient Education 2020 [employer]. Follow Up Care 09/04/2021 09:56:37 With:XAVIER VELAZQUEZ, Tyree Rivers, URL Address: [facility] [address] [place] [phone]- [phone] When:01/08/2023 Comments:10 month carlene MARAVILLA [facility] 03-07-2022 Progress note Author Claire Choi [facility] January 18, 2022 9:58am Note Date/Time January 18, 2022 9:42 am [facility] at [address] [address] Hem/Onc Follow Up Note - OP Signed Patient: Hailee Trivedi MR#: [id number] : 1940 Acct:[id number] Age/Sex: 81 / F Type: REG RCR Copies to: Curt Clark MD~ Date of Service: 01/18/2022 Time of Service: 09:41 - Assessment & Plan (1) Multiple myeloma Plan: 81 year old female with a long history of multiple myeloma currently in a VGPR on Daratumumab based on SPEP and 24 hr UPEP. Her myeloma is refractory to VCD, she could not tolerate Revlimid, and she progressed on Carfilzomib. She is tolerating therapy with daratumumab well. Within one month of starting irma in 2015 she had 95% reduction in K light chains and have been normal since. She is questioning whether she needs to stay on treatment. Serologically she has been nearly undetectable for 5 years. We decided in January 2021 to space hertreatments out to every 6 weeks. will consider further spacing if she is doing well in 6 months. o Continue Daratumumab at current dosing 6wks o Check SPEP, SFLC with every cycle o 24-hr UPEP, Urine SFLC every 3 cycles o Continue Acyclovir 400 mg BID prophylaxis Antibodies for parietal cells and intrinsic factor were normal. Switched to oral Vit B12 in 04/2019. Repeat B12 level in 07/2019 was 900 and 506 in 11/02. Continue oral vitamin B12. completed Pamidronate 60 mg monthly for 2 years. She was switched to every 3 month but stopped after 04/2018 since she stayed in remission for total of 2 years. Last dose was 04/19/2018. 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 give irma q6wks, f/u in 3 months skeletal survey and DXA scan prior to f/u. f/u with me or CLINICAL RESEARCH ADMINISTRATOR. - History of Present Illness Chief Complaint: Patient is a patient of Dr Bello here for a one month follow up with labs for review, prior to treatment today. States she had been weak and tired. Patient physically here in office, will see Dr Quiroga via video visit. HPI: She is here for routine follow-up. She has been absent because of a prolonged Covid infection. She is presenting December 16 to resume her daratumumab. Her most recent SPEP showed M spike at 0.1. She is on monthly daratumumab for myeloma. She was on monthly maintenance daratumumab for multiple myeloma. She was given the Darzalex shot but did not tolerate this and is now on monthly intravenous daratumumab. 1. Velcade/dexamethasone induction regimen with dexamethasone 20 mg started 07/08/2014, kappa light chain decreased to 833 and 33 from 7000 in October 2014. 2. Tried Revlimid in September 2014, discontinued 11/02/2014 due to suspicion that it may cause itching. 3. Velcade 1.3 mg/m sq weekly along with dexamethasone 6 mg p.o. weekly, light chain improved from 833 to 570 as of 04/18/2015, then increased again in May 2015. 4. Velcade induction regimen restarted with dexamethasone 20 mg p.o. weekly on 07/01 patient experienced extreme fatigue due to dehydration from hyperglycemia and diarrhea. 5. Velcade 1.3 mg with dexamethasone 6 mg and cyclophosphamide 300 mg IV [id number]/15/2015, developed grade 2 anemia, fatigue and grade 3 diarrhea. Cyclophosphamide was switched to p.o. 50 mg three weeks on, one week off on 09/26/2015, however, free kappa light chain went down to 1179 on 10/24/2015. 6. Carfilzomib 20 mg/m2 on days 1,2,8,9,15,16 of a 21 day cycle, started on 11/04/2015-02/24/2016. Discontinued due to disease progression. -Dose escalated to 27mg/m2 in cycle 2, on 12/17/2015. Dose reduced to 20mg/m2 on cycle 4 day 15 due to grade 2 fatigue. CURRENT THERAPY 1. Daratumumab 03/17/2016-. Total 39 cycles. -03/17/16-05/05/16, weekly. -05/19/16-08/25/16, biweekly. -09/22/16-, every 4 weeks. 09/21/2017 held due to dizziness, resumed 12/21/2017. Skip treatment on 12/13/18 per patient request. -07/2019-, every 6 week per patient request. -Dose held in 01/2020 and 02/2020 due to COVID-19 pandemics. -Resumed every 4 weeks cycle on 03/19/20. 2. Switched to DARZALEX Faspro 01/12/2021. - Physical Exam VIDEO EXAM This was video visit, so full examination could not be completed. Patient is Alert, oriented to person place and time. Exhibits appropriate judgment and decision making. Head and Neck atraumatic without visible abnormality or mass. Patient does not report wheezing or rattles in chest, lumps or bumps in armpits groin neck, rashes or bruising. Goal of Treatment: Palliative - Time with Patient Coordination of Care & Counseling Time: Greater than 50% of time spent with patient was for coordination of care (as documented) and [id number] counseling of patient and/or family. [facility] - Medical History Medical History: Medical History (Last Updated 12/16/21 @ 12:55 by Courtney Jackman) Afib CKD (chronic kidney disease) COVID-19 CVA (cerebral vascular accident) Diabetes HTN (hypertension) Hyperlipidemia Kidney stone Multiple myeloma - Surgical History Surgical History: Surgical History (Last Reviewed 12/16/21 @ 12:55 by Courtney Jackman) History of cholecystectomy History of hemorrhoidectomy History of hysterectomy History of renal stent Hx of lithotripsy - Social History Smoking Status: Never smoker Substance Use Type: None Additional Data - Additional Objective Data Height/Weight: Height 5 ft 6 in Weight 84.368 kg BSA for Today's Weight 2.00 Vital Signs: 01/18/22 09:34 Temperature 98 F Pulse Rate [Left Brachial] 90 Respiratory Rate 20 Blood Pressure [Right Arm] 131/82 02 Sat by Pulse Oximetry 98 Distress Screening: RN Distress Screening Start: 07/22/17 16:17 Freq: Q30D Status: Active Protocol: Document 07/15/20 10:19 (Rec: 07/15/20 10:19 [email or web address]) Distress Screening Distress Score: 3 Physical Concerns Feeling tired or a lack of energy Distress Screening Total 3 - Lab Results Diagram of Most Recent CBC and CMP 01/18/22 08:50 01/18/22 08:50 Labs - Last 7 Days 01/18/22 08:50: PHA Creatinine Clear 21.23, Sodium 136, Potassium 4.6, Chloride 106, Carbon Dioxide 20.2 L, BUN 26 H, Creatinine 2.37 H, Est GFR ( Amer) 24, Est GFR (Non-Af Amer) 20, Glucose 132 H, Calcium 9.1, Total Bilirubin 0.7, AST 14, ALT 14, Alkaline Phosphatase 90, Total Protein 6.5, Albumin 3.7, Globulin 2.8, Albumin/Globulin Ratio 1.3 01/18/22 08:50: Corrected WBC 9.1, Uncorrected WBC Count 9.1, RBC 4.32, Hgb 13.8, Hct 41.7, MCV 96.4, MCH 31.8, MCHC 33.0, RDW 14.4, Plt Count 204, MPV 9.7,Neut % (Auto) 59.4, Lymph % (Auto) 31.4, Archuleta % (Auto) 7.2, Eos % (Auto) 0.9, Baso % (Auto) 1.1, Neut # (Auto) 5.4, Lymph # (Auto) 2.8, Archuleta # (Auto) 0.7, Eos# (Auto) 0.1, Baso # (Auto) 0.1, Nucleated RBC % (auto) 0.1 - Home Medications and Allergies Allergies/Adverse Reactions: Allergies lenalidomide [From Revlimid] Allergy (Mild, Verified 01/18/22 09:33) Rash oxybutynin Allergy (Verified 01/18/22 09:33) Rash pregabalin [From Lyrica] Allergy (Verified 01/18/22 09:33) double vision Home Medications: Home Medications Fish Oil 1,200 cap PO BID 07/14/17 [History Confirmed 01/18/22] insulin lispro 100 unit/mL subcutaneous pen (Humalog KwikPen (U-100) Insulin) See Protocol SUB-Q ACHS PRN 07/14/17 [History Confirmed 01/18/22] sodium bicarbonate 650 mg tablet 650 mg PO BID 07/14/17 [History Confirmed 01/18/22] cholecalciferol (vitamin D3) 125 mcg (5,000 unit) tablet (Vitamin D3) 1,000 unitPO DAILY 08/10/18 [History Confirmed 01/18/22] insulin NPH isoph U-100 human 100 unit/mL (3 mL) subcutaneous pen (Humulin N NPHU-100 Insulin KwikPen) 12 unit SUBCUT QPM 08/10/18 [History Confirmed 01/18/22] atorvastatin 40 mg tablet 40 mg PO DAILY 08/23/18 [History Confirmed 01/18/22] amlodipine 10 mg tablet 5 mg PO DAILY 09/20/18 [History Confirmed 01/18/22] aspirin 81 mg chewable tablet 81 mg PO DAILY 10/18/18 [History Confirmed 01/18/22] cyanocobalamin (vitamin B-12) 1,000 mcg tablet 1,000 mcg PO DAILY 05/02/19 [History Confirmed 01/18/22] acyclovir 400 mg tablet 400 mg PO BID 11/07/19 [History Confirmed 01/18/22] carvedilol 12.5 mg tablet (Coreg) 12.5 mg PO BID 30 Days #60 tab 11/07/19 [Rx Confirmed 01/18/22] rivaroxaban 15 mg tablet (Xarelto) 15 mg PO DAILY 30 Days #30 tab 11/07/19 [Rx Confirmed 01/18/22] cyclobenzaprine 10 mg tablet 10 mg PO TID PRN #15 tab 11/04/20 [Rx Confirmed 01/18/22] sodium citrate-citric acid 490 mg-640 mg/5 mL oral solution (Oracit) 10 ml PO QID 06/16/21 [History Confirmed 01/18/22] Dictated By: Claire Choi II, DO DD/ [id number] Signed By: <Electronically signed by Claire Choi II, DO> 01/18/22 0958 [facility] Work Phone: [phone]) 994-871403-03-2022 Evaluation note* Encounter Date Diagnosis Assessment Notes Treatment Notes Treatment Clinical Notes Jan, Nephrolithiasis (ICD -10 - N20.0) Her 24 hr urine stone studies showed Hypocitruria. She did not tolerate Potassium Citrate due to hyperkalemia. Continue Oracit for for kidney stones prophylaxis.I have advised her to adequately hydrate herself. 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 with proteinuria less than 1 g. Her renal US showed B/L simple renal cyst. I have d/w her the importance of good DM and HTN control to slow down the progression of CKD Jan, Hypertensive chronic kidney disease with stage 1 through stage 4 chronic kidney disease, or unspecified chronic kidney disease (ICD-10 - I12.9) Blood pressure is high today but usually well controlled on current regimen. Continue current medications. I have advised her to monitor blood pressure at home and if it stays above 140/90 mmHg then call office. 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 Continue follow-up with DM clinic for diabetes mellitus management. She is not on MARK or ARB due to the advanced CKD. Jan, Secondary hyperparathyroidism of renal origin (ICD-10 - N25.81) PTH is at goal. I have advised her to take low phosphorus diet Jan, Metabolic acidosis (ICD-10 - E87.2) She has a metabolic acidosis due to the CKD. Continue oral sodium bicarbonate. Jan, Vitamin D deficiency (ICD-10 - E55.9) Vit D is within the goal. I will continue the current treatment. Jan, Microscopic hematuri a (ICD-10 - R31.29) She has microscopic hematuria likely due to Nephrolithiasis. She follows with Urologist Dr. Lou. She has hypocirturia but cannot tolerate Potassium Citrate due to hyperkalemia Jan, Multiple myeloma (IC D-10 - C90.00) Followup with Dr. Bello Betable Other 02-02-2022 Progress note Author Hunter Bello [facility] December 16, 2021 1:18pm Note Date/Time December 16, 2021 1 :17pm [facility] [place] [address] Hem/Onc Follow Up Note - OP Signed Patient: Hailee Trivedi MR#: [id number] : 1940 Acct:[id number] Age/Sex: 81 / F Type: REG RCR Copies to: Curt Clark MD~ Subjective Date/Time of Service: Date of Service: 12/16/2021 Time of Service: 13:16 Chief Complaint: Patient is here or a 10 week follow up, voices no concerns at this time. HPI: She is here for routine follow-up. She has been absent because of a prolonged Covid infection. She is presenting December 16 to resume her daratumumab. Her most recent SPEP showed M spike at 0.1. She is on monthly daratumumab for myeloma. She was on monthly maintenance daratumumab for multiple myeloma. She was given the Darzalex shot but did not tolerate this and is now on monthly intravenous daratumumab. - Summary of Therapies Summary of Therapies: 1. Velcade/dexamethasone induction regimen with dexamethasone 20 mg started 07/08/2014, kappa light chain decreased to 833 and 33 from 7000 in October 2014. 2. Tried Revlimid in September 2014, discontinued 11/02/2014 due to suspicion that it may cause itching. 3. Velcade 1.3 mg/m sq weekly along with dexamethasone 6 mg p.o. weekly, light chain improved from 833 to 570 as of 04/18/2015, then increased again in May 2015. 4. Velcade induction regimen restarted with dexamethasone 20 mg p.o. weekly on 07/01 patient experienced extreme fatigue due to dehydration from hyperglycemia and diarrhea. 5. Velcade 1.3 mg with dexamethasone 6 mg and cyclophosphamide 300 mg IV [id number]/2015, developed grade 2 anemia, fatigue and grade 3 diarrhea. Cyclophosphamide was switched to p.o. 50 mg three weeks on, one week off on 09/26/2015, however, free kappa light chain went down to 1179 on 10/24/2015. 6. Carfilzomib 20 mg/m2 on days 1,2,8,9,15,16 of a 21 day cycle, started on 11/04/2015-02/24/2016. Discontinued due to disease progression. -Dose escalated to 27mg/m2 in cycle 2, on 12/17/2015. Dose reduced to 20mg/m2 on cycle 4 day 15 due to grade 2 fatigue. CURRENT THERAPY 1. Daratumumab 03/17/2016-. Total 39 cycles. -03/17/16-05/05/16, weekly. -05/19/16-08/25/16, biweekly. -09/22/16-, every 4 weeks. 09/21/2017 held due to dizziness, resumed 12/21/2017. Skip treatment on 12/13/18 per patient request. -07/2019-, every 6 week per patient request. -Dose held in 01/2020 and 02/2020 due to COVID-19 pandemics. -Resumed every 4 weeks cycle on 03/19/20. 2. Switched to DARZALEX Faspro 01/12/2021, profound fatigue after 1 cycle. -Switching back to infusional Daratumumab 02/17/21. Resumed intravenous daratumumab September 08, 2021 by me. Plan will be to transfer her care to [place] [facility] when [facility] is ready 2. VitB12 injections, monthly, switched to oral in 04/2019. ROS Details: All systems reviewed & no additional complaints except as documented Subjective/ROS - Narrative: CONSTITUTIONAL: Fevers [-], Chills [-], Nightsweats [-], Weight Loss [-], Hot Flashes [-], Fatigue [+] HEENT: Changes in Vision [-], Changes in Hearing [-], Eye Pain [-], Ear Pain [- ], Mouth Sores [-], Change in Taste [-], Sore Throat [-], Hoarseness [-] CARDIOVASCULAR: Palpitations [-], Chest Pain [-], Chest Tightness [-], Swellingin Extremities [-] RESPIRATORY: Cough [-], Shortness of Breath [-], Dyspnea on Exertion [-], Wheezing [-] GASTROINTESTINAL: Abdominal Pain [-], Diarrhea [-], Constipation [-], Nausea [- ], Vomiting [-], Early Satiety [-], Hematochezia [-], Melena [-] LYMPHATIC: Swollen Glands [-], Enlarged Lymph Nodes [-] INTEGUMENTARY: Rashes [-], Nodules [-], Ulcers [-], Blisters [-], Pigmentation Changes [-] HEMATOLOGIC: Easy Bruising [-], Gum Bleeding [-], Epistaxis [-], Prolonged Bleeding [-], Heavy Menses [-] GENITOURINARY: Hematuria [-], Difficulty Voiding [-], Pain with Voiding [-], Frequent Voiding [-] NEUROLOGIC: Numbness [-], Tingling [-], Altered Gait [-], Muscle Weakness [-] MUSCULOSKELETAL: Muscle Pain [-], Bone Pain [-], Joint Pain [-] PSYCHIATRIC: Depressed Mood [-], Anxiety [-], Stressed [-] [facility] - Medical History Medical History: Medical History (Last Updated 02/02/22 @ 12:55 by Courtney Jackman) Afib CKD (chronic kidney disease) COVID-19 CVA (cerebral vascular accident) Diabetes HTN (hypertension) Hyperlipidemia Kidney stone Multiple myeloma - Surgical History Surgical History: Surgical History (Last Reviewed 12/16/21 @ 12:55 by Courtney Jackman) History of cholecystectomy History of hemorrhoidectomy History of hysterectomy History of renal stent Hx of lithotripsy - Social History Smoking Status: Never smoker Substance Use Type: None Home Medications & Allergies Allergies lenalidomide [From Revlimid] Allergy (Mild, Verified 10/06/21 08:56) Rash oxybutynin Allergy (Verified 10/06/21 08:56) Rash pregabalin [From Lyrica] Allergy (Verified 10/06/21 08:56) double vision Home Medications Fish Oil 1,200 cap PO BID 07/14/17 [History Confirmed 12/16/21] insulin lispro 100 unit/mL subcutaneous pen (Humalog KwikPen (U-100) Insulin) See Protocol SUB-Q ACHS PRN 07/14/17 [History Confirmed 12/16/21] sodium bicarbonate 650 mg tablet 650 mg PO BID 07/14/17 [History Confirmed 12/16/21] cholecalciferol (vitamin D3) 125 mcg (5,000 unit) tablet (Vitamin D3) 1,000 unitPO DAILY 08/10/18 [History Confirmed 12/16/21] insulin NPH isoph U-100 human 100 unit/mL (3 mL) subcutaneous pen (Humulin N NPHU-100 Insulin KwikPen) 12 unit SUBCUT QPM 08/10/18 [History Confirmed 12/16/21] atorvastatin 40 mg tablet 40 mg PO DAILY 08/23/18 [History Confirmed 12/16/21] amlodipine 10 mg tablet 5 mg PO DAILY 09/20/18 [History Confirmed 12/16/21] aspirin 81 mg chewable tablet 81 mg PO DAILY 10/18/18 [History Confirmed 12/16/21] cyanocobalamin (vitamin B-12) 1,000 mcg tablet 1,000 mcg PO DAILY 05/02/19 [History Confirmed 12/16/21] acyclovir 400 mg tablet 400 mg PO BID 11/07/19 [History Confirmed 12/16/21] carvedilol 12.5 mg tablet (Coreg) 12.5 mg PO BID 30 Days #60 tab 11/07/19 [Rx Confirmed 12/16/21] rivaroxaban 15 mg tablet (Xarelto) 15 mg PO DAILY 30 Days #30 tab 11/07/19 [Rx Confirmed 12/16/21] cyclobenzaprine 10 mg tablet 10 mg PO TID PRN #15 tab 11/04/20 [Rx Confirmed 12/16/21] sodium citrate-citric acid 490 mg-640 mg/5 mL oral solution (Oracit) 10 ml PO QID 06/16/21 [History Confirmed 12/16/21] Objective - Height/Weight Height/Weight: Height 5 ft 6 in Weight 85.185 kg BSA for Today's Weight 2.01 - Vital Signs Vital Signs: 12/16/21 12:56 Temperature 98 F Pulse Rate [Left Brachial] 79 Respiratory Rate 20 Blood Pressure [Right Arm] 149/80 H 02 Sat by Pulse Oximetry 98 - Pain Bilateral Shoulder Pain Intensity: 1 Right Shoulder Pain Intensity: 2 Generalized Back Pain Intensity: 0 Left Arm Pain Intensity: 0 Generalized Teeth Pain Intensity: 0 - Distress Screening Distress Screen Results: RN Distress Screening Start: 07/22/17 16:17 Freq: Q30D Status: Active Protocol: Document 07/15/20 10:19 (Rec: 07/15/20 10:19 [email or web address]) Distress Screening Distress Score: 3 Physical Concerns Feeling tired or a lack of energy Distress Screening Total 3 Physical Exam Narrative: CONSTITUTIONAL: Awake, Alert and in No Acute Distress HEENT: Eyes were reactive to light bilaterally, anicteric sclere without conjunctival pallor. Nasal mucosa was non-erythematous. Mucous membranes were moist. Oral mucosa was without lesions or petechiae. Dentition was normal. NECK: There were no masses in the neck. Trachea was midline. Thyroid was not enlarged. LYMPHATIC: No auricular, anterior/posterior cervical, supraclavicular, infraclavicular, axillary, or inguinal adenopathy appreciated MUSCULOSKELETAL: Gait was normal. No clubbing or cyanosis noted. SKIN: No rashes, lesions, nodules, ecchymoses, erythema or petechiae were noted. PSYCHIATRIC: Oriented to time, place and person. Memory was intact. Mood was normal and affect was appropriate to mood. Patient demonstrated insight into his diagnosis and judgment was adequate. - ECOG Performance Status ECOG Score: 1 Results - Labs Labs: Diagram of Most Recent CBC and CMP 10/05/21 13:25 10/05/21 13:25 Assessment and Plan (1) Multiple myeloma Qualifiers: Multiple myeloma remission status: not in remission Qualified Code(s): C90.00 - Multiple myeloma not having achieved remission 81 year old female with a long history of multiple myeloma currently in a VGPR on Daratumumab based on SPEP and 24 hr UPEP. We will need to check her SPEP andSFLC with every cycle and 24 hr UPEP every 3 months. She is tolerating therapy well overall. We will continue to monitor her closely. Her myeloma is refractory to VCD, she could not tolerate Revlimid, and she progressed on Carfilzomib. She is tolerating therapy with daratumumab well. Labs are reviewed and essentially are stable. Her M spike is 0.1. Free light chains appear stable and her CBC is normal. She has no symptoms or signs at this time of progression. In short she is doing very well and I am very pleasedwith our current plan of maintenance therapy. We will transfer her care to [facility] when they are ready. o Continue Daratumumab at current dosing o Check SPEP, SFLC with every cycle o 24-hr UPEP, Urine SFLC every 3 cycles o Continue Acyclovir 400 mg BID prophylaxis Resume therapy (2) B12 deficiency anemia Qualifiers: Vitamin B12 deficiency anemia type: unspecified B12 deficiency Qualified Code(s): D51.9 - Vitamin B12 deficiency anemia, unspecified Antibodies for parietal cells and intrinsic factor were normal. Switched to oral Vit B12 in 04/2019. Repeat B12 level in 07/2019 was 900 and 506 in 11/02. Continue oral vitamin B12. (3) 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 Completed Pamidronate 60 mg monthly for 2 years. She was switched to every 3 month but stopped after 04/2018 since she stayed in remission for total of 2 years. Last dose was 04/19/2018. - Chemo Plan Goal of Treatment: Palliative - Time with Patient Time Spent with Patient (Follow Up Visit): 25 minutes Coordination of Care & Counseling Time: Greater than 50% of time spent with patient was for coordination of care (as documented) and [id number] counseling of patient and/or family. Dictated By: Hunter Bello MD DD/ [id number] Signed By: <Electronically signed by MD Hunter Bello> 12/16/21 1318 [facility] Work Phone: [phone]) 893-750011-23-2021 Progress note Author Hunter Bello [facility] October 06, 2021 10:02am Note Date/Time October 06, 2021 9:58am [facility] [place] [address] Hem/Onc Follow Up Note - OP Signed Patient: Hailee Trivedi MR#: [id number] : 1940 Acct:[id number] Age/Sex: 81 / F Type: REG RCR Copies to: Curt Clark MD~ Subjective Date/Time of Service: Date of Service: 10/06/2021 Time of Service: 09:57 Chief Complaint: Patient is here today for 4 week follow up visit for multiple myeloma and to go over labs. No new concerns HPI: She is here for routine follow-up. Her most recent SPEP showed M spike at 0.1. She is on monthly daratumumab for myeloma. She will be getting her treatment today and we have been trying to transfer her care to [place] [facility] but they are not up to doing transfusions yet. Her labs are reviewed. She is on monthly maintenance daratumumab for multiple myeloma. She was given the Darzalex shot but did not tolerate this and is now on monthly intravenous daratumumab. - Summary of Therapies Summary of Therapies: 1. Velcade/dexamethasone induction regimen with dexamethasone 20 mg started 07/08/2014, kappa light chain decreased to 833 and 33 from 7000 in October 2014. 2. Tried Revlimid in September 2014, discontinued 11/02/2014 due to suspicion that it may cause itching. 3. Velcade 1.3 mg/m sq weekly along with dexamethasone 6 mg p.o. weekly, light chain improved from 833 to 570 as of 04/18/2015, then increased again in May 2015. 4. Velcade induction regimen restarted with dexamethasone 20 mg p.o. weekly on 07/01 patient experienced extreme fatigue due to dehydration from hyperglycemia and diarrhea. 5. Velcade 1.3 mg with dexamethasone 6 mg and cyclophosphamide 300 mg IV [id number]/2015, developed grade 2 anemia, fatigue and grade 3 diarrhea. Cyclophosphamide was switched to p.o. 50 mg three weeks on, one week off on 09/26/2015, however, free kappa light chain went down to 1179 on 10/24/2015. 6. Carfilzomib 20 mg/m2 on days 1,2,8,9,15,16 of a 21 day cycle, started on 11/04/2015-02/24/2016. Discontinued due to disease progression. -Dose escalated to 27mg/m2 in cycle 2, on 12/17/2015. Dose reduced to 20mg/m2 on cycle 4 day 15 due to grade 2 fatigue. CURRENT THERAPY 1. Daratumumab 03/17/2016-. Total 39 cycles. -03/17/16-05/05/16, weekly. -05/19/16-08/25/16, biweekly. -09/22/16-, every 4 weeks. 09/21/2017 held due to dizziness, resumed 12/21/2017. Skip treatment on 12/13/18 per patient request. -07/2019-, every 6 week per patient request. -Dose held in 01/2020 and 02/2020 due to COVID-19 pandemics. -Resumed every 4 weeks cycle on 03/19/20. 2. Switched to DARZALEX Faspro 01/12/2021, profound fatigue after 1 cycle. -Switching back to infusional Daratumumab 02/17/21. Resumed intravenous daratumumab September 08, 2021 by me. Plan will be to transfer her care to [facility] [facility] when [facility] is ready 2. VitB12 injections, monthly, switched to oral in 04/2019. ROS Details: All systems reviewed & no additional complaints except as documented Subjective/ROS - Narrative: CONSTITUTIONAL: Fevers [-], Chills [-], Nightsweats [-], Weight Loss [-], Hot Flashes [-], Fatigue [+] HEENT: Changes in Vision [-], Changes in Hearing [-], Eye Pain [-], Ear Pain [- ], Mouth Sores [-], Change in Taste [-], Sore Throat [-], Hoarseness [-] CARDIOVASCULAR: Palpitations [-], Chest Pain [-], Chest Tightness [-], Swellingin Extremities [-] RESPIRATORY: Cough [-], Shortness of Breath [-], Dyspnea on Exertion [-], Wheezing [-] GASTROINTESTINAL: Abdominal Pain [-], Diarrhea [-], Constipation [-], Nausea [- ], Vomiting [-], Early Satiety [-], Hematochezia [-], Melena [-] LYMPHATIC: Swollen Glands [-], Enlarged Lymph Nodes [-] INTEGUMENTARY: Rashes [-], Nodules [-], Ulcers [-], Blisters [-], Pigmentation Changes [-] HEMATOLOGIC: Easy Bruising [-], Gum Bleeding [-], Epistaxis [-], Prolonged Bleeding [-], Heavy Menses [-] GENITOURINARY: Hematuria [-], Difficulty Voiding [-], Pain with Voiding [-], Frequent Voiding [-] NEUROLOGIC: Numbness [-], Tingling [-], Altered Gait [-], Muscle Weakness [-] MUSCULOSKELETAL: Muscle Pain [-], Bone Pain [-], Joint Pain [-] PSYCHIATRIC: Depressed Mood [-], Anxiety [-], Stressed [-] [facility] - Medical History Medical History: Medical History (Last Reviewed 04/16/20 @ 09:36 by Carol Younger APRN) Afib CKD (chronic kidney disease) CVA (cerebral vascular accident) Diabetes HTN (hypertension) Hyperlipidemia Kidney stone Multiple myeloma - Surgical History Surgical History: Surgical History (Last Reviewed 04/16/20 @ 09:37 by Carol Younger APRN) History of cholecystectomy History of hemorrhoidectomy History of hysterectomy History of renal stent Hx of lithotripsy - Social History Smoking Status: Never smoker Substance Use Type: None Home Medications & Allergies Allergies lenalidomide [From Revlimid] Allergy (Mild, Verified 10/06/21 08:56) Rash oxybutynin Allergy (Verified 10/06/21 08:56) Rash pregabalin [From Lyrica] Allergy (Verified 10/06/21 08:56) double vision Home Medications Fish Oil 1,200 cap PO BID 07/14/17 [History Confirmed 10/06/21] insulin lispro 100 unit/mL subcutaneous pen (Humalog KwikPen (U-100) Insulin) See Protocol SUB-Q ACHS PRN 07/14/17 [History Confirmed 10/06/21] sodium bicarbonate 650 mg tablet 650 mg PO BID 07/14/17 [History Confirmed 10/06/21] cholecalciferol (vitamin D3) 125 mcg (5,000 unit) tablet (Vitamin D3) 1,000 unitPO DAILY 08/10/18 [History Confirmed 10/06/21] insulin NPH isoph U-100 human 100 unit/mL (3 mL) subcutaneous pen (Humulin N NPHU-100 Insulin KwikPen) 12 unit SUBCUT QPM 08/10/18 [History Confirmed 10/06/21] atorvastatin 40 mg tablet 40 mg PO DAILY 08/23/18 [History Confirmed 10/06/21] amlodipine 10 mg tablet 5 mg PO DAILY 09/20/18 [History Confirmed 10/06/21] aspirin 81 mg chewable tablet 81 mg PO DAILY 10/18/18 [History Confirmed 10/06/21] cyanocobalamin (vitamin B-12) 1,000 mcg tablet 1,000 mcg PO DAILY 05/02/19 [History Confirmed 10/06/21] acyclovir 400 mg tablet 400 mg PO BID 11/07/19 [History Confirmed 10/06/21] carvedilol 12.5 mg tablet (Coreg) 12.5 mg PO BID 30 Days #60 tab 11/07/19 [Rx Confirmed 10/06/21] rivaroxaban 15 mg tablet (Xarelto) 15 mg PO DAILY 30 Days #30 tab 11/07/19 [Rx Confirmed 10/06/21] cyclobenzaprine 10 mg tablet 10 mg PO TID PRN #15 tab 11/04/20 [Rx Confirmed 10/06/21] sodium citrate-citric acid 490 mg-640 mg/5 mL oral solution (Oracit) 10 ml PO QID 06/16/21 [History Confirmed 10/06/21] Objective - Height/Weight Height/Weight: Height 5 ft 6 in Weight 86.908 kg BSA for Today's Weight 2.01 - Vital Signs Vital Signs: 10/06/21 08:57 Temperature 98.0 F Pulse Rate [Left Brachial] 67 Respiratory Rate 20 Blood Pressure [Right Arm] 160/67 H 02 Sat by Pulse Oximetry 99 - Pain Bilateral Shoulder Pain Intensity: 1 Right Shoulder Pain Intensity: 2 Generalized Back Pain Intensity: 0 Left Arm Pain Intensity: 0 Generalized Teeth Pain Intensity: 0 - Distress Screening Distress Screen Results: RN Distress Screening Start: 07/22/17 16:17 Freq: Q30D Status: Active Protocol: Document 07/15/20 10:19 (Rec: 07/15/20 10:19 [email or web address]) Distress Screening Distress Score: 3 Physical Concerns Feeling tired or a lack of energy Distress Screening Total 3 Physical Exam Narrative: CONSTITUTIONAL: Awake, Alert and in No Acute Distress HEENT: Eyes were reactive to light bilaterally, anicteric sclere without conjunctival pallor. Nasal mucosa was non-erythematous. Mucous membranes were moist. Oral mucosa was without lesions or petechiae. Dentition was normal. NECK: There were no masses in the neck. Trachea was midline. Thyroid was not enlarged. LYMPHATIC: No auricular, anterior/posterior cervical, supraclavicular, infraclavicular, axillary, or inguinal adenopathy appreciated MUSCULOSKELETAL: Gait was normal. No clubbing or cyanosis noted. SKIN: No rashes, lesions, nodules, ecchymoses, erythema or petechiae were noted. PSYCHIATRIC: Oriented to time, place and person. Memory was intact. Mood was normal and affect was appropriate to mood. Patient demonstrated insight into his diagnosis and judgment was adequate. - ECOG Performance Status ECOG Score: 1 Results - Labs Labs: Diagram of Most Recent CBC and CMP 10/05/21 13:25 10/05/21 13:25 Labs - Last 7 Days 10/05/21 13:25: PHA Creatinine Clear 19.90, Sodium 136, Potassium 4.7, Chloride 104, Carbon Dioxide 20.5 L, BUN 38 H, Creatinine 2.55 H, Est GFR ( Amer) 22, Est GFR (Non-Af Amer) 18, Glucose 102 H, Calcium 8.9, Total Bilirubin 0.3, AST 12, ALT 13, Alkaline Phosphatase 101 H, Total Protein 5.9 L, Albumin 3.6, Globulin 2.3, Albumin/Globulin Ratio 1.6 10/05/21 13:25: Corrected WBC 8.9, Uncorrected WBC Count 8.9, RBC 3.92, Hgb 12.5, Hct 37.6, MCV 96.0, MCH 31.9, MCHC 33.2, RDW 13.6, Plt Count 220, MPV 9.0,Neut % (Auto) 57.1, Lymph % (Auto) 34.7, Archuleta % (Auto) 6.1, Eos % (Auto) 0.8, Baso % (Auto) 1.3, Neut # (Auto) 5.1, Lymph # (Auto) 3.1, Archuleta # (Auto) 0.5, Eos# (Auto) 0.1, Baso # (Auto) 0.1, Nucleated RBC % (auto) 0.1 Assessment and Plan (1) Multiple myeloma Qualifiers: Multiple myeloma remission status: not in remission Qualified Code(s): C90.00 - Multiple myeloma not having achieved remission 81 year old female with a long history of multiple myeloma currently in a VGPR on Daratumumab based on SPEP and 24 hr UPEP. We will need to check her SPEP andSFLC with every cycle and 24 hr UPEP every 3 months. She is tolerating therapy well overall. We will continue to monitor her closely. Her myeloma is refractory to VCD, she could not tolerate Revlimid, and she progressed on Carfilzomib. She is tolerating therapy with daratumumab well. Labs are reviewed and essentially are stable. Her M spike is 0.1. Free light chains appear stable and her CBC is normal. She has no symptoms or signs at this time of progression. In short she is doing very well and I am very pleasedwith our current plan of maintenance therapy. We will transfer her care to [facility] when they are ready. o Continue Daratumumab at current dosing o Check SPEP, SFLC with every cycle o 24-hr UPEP, Urine SFLC every 3 cycles o Continue Acyclovir 400 mg BID prophylaxis Resume therapy (2) B12 deficiency anemia Qualifiers: Vitamin B12 deficiency anemia type: unspecified B12 deficiency Qualified Code(s): D51.9 - Vitamin B12 deficiency anemia, unspecified Antibodies for parietal cells and intrinsic factor were normal. Switched to oral Vit B12 in 04/2019. Repeat B12 level in 07/2019 was 900 and 506 in 11/02. Continue oral vitamin B12. (3) 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 Completed Pamidronate 60 mg monthly for 2 years. She was switched to every 3 month but stopped after 04/2018 since she stayed in remission for total of 2 years. Last dose was 04/19/2018. - Chemo Plan Goal of Treatment: Palliative - Time with Patient Time Spent with Patient (Follow Up Visit): 25 minutes Coordination of Care & Counseling Time: Greater than 50% of time spent with patient was for coordination of care (as documented) and hegi-fq-xoed counseling of patient and/or family. Dictated By: Hunter Bello MD DD/ [id number] Signed By: <Electronically signed by MD Hunter Bello> 10/06/21 1002 [facility] Work Phone: [phone] 372-422311-17-2021 Evaluation note* Encounter Date Diagnosis Assessment Notes Treatment Notes Treatment Clinical Notes Sep, Nephrolithiasis (ICD -10 - N20.0) Her 24 hr urine stone studies showed Hypocitruria. She did not tolerate Potassium Citrate due to hyperkalemia. Continue Oracit for for kidney stones prophylaxis.I have advised her to adequately hydrate herself. 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 with proteinuria less than 1 g. Her renal US showed B/L simple renal cyst. I have d/w her the importance of good DM and HTN control to slow down the progression of CKD Sep, Hypertensive chronic kidney disease with stage 1 through stage 4 chronic kidney disease, or unspecified chronic kidney disease (ICD-10 - I12.9) Blood pressure is well controlled on current regimen. 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 Continue follow-up with DM clinic for diabetes mellitus management. She is not on MARK or ARB due to the advanced CKD. Sep, Secondary hyperparathyroidism of renal origin (ICD-10 - N25.81) PTH is at goal. I have advised her to take low phosphorus diet Sep, Metabolic acidosis (ICD-10 - E87.2) She has a metabolic acidosis due to the CKD. Continue oral sodium bicarbonate. Sep, Vitamin D deficiency (ICD-10 - E55.9) Vit D is within the goal. I will continue the current treatment. Sep, Microscopic hematuri a (ICD-10 - R31.29) She has microscopic hematuria likely due to Nephrolithiasis. She follows with Urologist Dr. Lou. She has hypocirturia but cannot tolerate Potassium Citrate due to hyperkalemia Sep, Multiple myeloma (IC D-10 - C90.00) Followup with Dr. Bello Betable Other 10-26-2021 Progress note Author Hunter Bello [facility] September 08, 2021 11:19am Note Date/Time September 08, 2021 1 1:17am [facility] [place] [address] Hem/Onc Follow Up Note - OP Signed Patient: Hailee Trivedi MR#: [id number] : 1940 Acct:[id number] Age/Sex: 81 / F Type: REG RCR Copies to: Curt Clark MD~ Subjective Date/Time of Service: Date of Service: 09/08/2021 Time of Service: 11:16 Chief Complaint: Patient is a former patient of Dr Pimentel here for a 3 month follow up for multiple myeloma. She had labs 09/07/21 for review today, voices no concerns. HPI: She is here for routine follow-up. Her most recent SPEP showed no M spike. Sheis on monthly daratumumab for myeloma. She will be getting her treatment today September 08 and then transferring her care to the [place] oncology clinic. She will be getting monthly daratumumab down there. She has no complaints today. She did not tolerate the Darzalex shot and is on monthly intravenous daratumumab. - Summary of Therapies Summary of Therapies: 1. Velcade/dexamethasone induction regimen with dexamethasone 20 mg started 07/08/2014, kappa light chain decreased to 833 and 33 from 7000 in October 2014. 2. Tried Revlimid in September 2014, discontinued 11/02/2014 due to suspicion that it may cause itching. 3. Velcade 1.3 mg/m sq weekly along with dexamethasone 6 mg p.o. weekly, light chain improved from 833 to 570 as of 04/18/2015, then increased again in May 2015. 4. Velcade induction regimen restarted with dexamethasone 20 mg p.o. weekly on 07/01 patient experienced extreme fatigue due to dehydration from hyperglycemia and diarrhea. 5. Velcade 1.3 mg with dexamethasone 6 mg and cyclophosphamide 300 mg IV [id number]/15/2015, developed grade 2 anemia, fatigue and grade 3 diarrhea. Cyclophosphamide was switched to p.o. 50 mg three weeks on, one week off on 09/26/2015, however, free kappa light chain went down to 1179 on 10/24/2015. 6. Carfilzomib 20 mg/m2 on days 1,2,8,9,15,16 of a 21 day cycle, started on 11/04/2015-02/24/2016. Discontinued due to disease progression. -Dose escalated to 27mg/m2 in cycle 2, on 12/17/2015. Dose reduced to 20mg/m2 on cycle 4 day 15 due to grade 2 fatigue. CURRENT THERAPY 1. Daratumumab 03/17/2016-. Total 39 cycles. -03/17/16-05/05/16, weekly. -05/19/16-08/25/16, biweekly. -09/22/16-, every 4 weeks. 09/21/2017 held due to dizziness, resumed 12/21/2017. Skip treatment on 12/13/18 per patient request. -07/2019-, every 6 week per patient request. -Dose held in 01/2020 and 02/2020 due to COVID-19 pandemics. -Resumed every 4 weeks cycle on 03/19/20. 2. Switched to DARZALEX Faspro 01/12/2021, profound fatigue after 1 cycle. -Switching back to infusional Daratumumab 02/17/21. Resumed intravenous daratumumab September 08, 2021 by me. Plan will be to transfer her care to [place] [facility] clinic. 2. VitB12 injections, monthly, switched to oral in 04/2019. ROS Details: All systems reviewed & no additional complaints except as documented Subjective/ROS - Narrative: CONSTITUTIONAL: Fevers [-], Chills [-], Nightsweats [-], Weight Loss [-], Hot Flashes [-], Fatigue [+] HEENT: Changes in Vision [-], Changes in Hearing [-], Eye Pain [-], Ear Pain [- ], Mouth Sores [-], Change in Taste [-], Sore Throat [-], Hoarseness [-] CARDIOVASCULAR: Palpitations [-], Chest Pain [-], Chest Tightness [-], Swellingin Extremities [-] RESPIRATORY: Cough [-], Shortness of Breath [-], Dyspnea on Exertion [-], Wheezing [-] GASTROINTESTINAL: Abdominal Pain [-], Diarrhea [-], Constipation [-], Nausea [- ], Vomiting [-], Early Satiety [-], Hematochezia [-], Melena [-] LYMPHATIC: Swollen Glands [-], Enlarged Lymph Nodes [-] INTEGUMENTARY: Rashes [-], Nodules [-], Ulcers [-], Blisters [-], Pigmentation Changes [-] HEMATOLOGIC: Easy Bruising [-], Gum Bleeding [-], Epistaxis [-], Prolonged Bleeding [-], Heavy Menses [-] GENITOURINARY: Hematuria [-], Difficulty Voiding [-], Pain with Voiding [-], Frequent Voiding [-] NEUROLOGIC: Numbness [-], Tingling [-], Altered Gait [-], Muscle Weakness [-] MUSCULOSKELETAL: Muscle Pain [-], Bone Pain [-], Joint Pain [-] PSYCHIATRIC: Depressed Mood [-], Anxiety [-], Stressed [-] [facility] - Medical History Medical History: Medical History (Last Reviewed 04/16/20 @ 09:36 by Carol Younger APRN) Afib CKD (chronic kidney disease) CVA (cerebral vascular accident) Diabetes HTN (hypertension) Hyperlipidemia Kidney stone Multiple myeloma - Surgical History Surgical History: Surgical History (Last Reviewed 04/16/20 @ 09:37 by Carol Younger APRN) History of cholecystectomy History of hemorrhoidectomy History of hysterectomy History of renal stent Hx of lithotripsy - Social History Smoking Status: Never smoker Substance Use Type: None Home Medications & Allergies Allergies lenalidomide [From Revlimid] Allergy (Mild, Verified 09/08/21 10:56) Rash oxybutynin Allergy (Verified 09/08/21 10:56) Rash pregabalin [From Lyrica] Allergy (Verified 09/08/21 10:56) double vision Home Medications Fish Oil 1,200 cap PO BID 07/14/17 [History Confirmed 09/08/21] insulin lispro 100 unit/mL subcutaneous pen (Humalog KwikPen (U-100) Insulin) See Protocol SUB-Q ACHS PRN 07/14/17 [History Confirmed 09/08/21] sodium bicarbonate 650 mg tablet 650 mg PO BID 07/14/17 [History Confirmed 09/08/21] cholecalciferol (vitamin D3) 125 mcg (5,000 unit) tablet (Vitamin D3) 1,000 unitPO DAILY 08/10/18 [History Confirmed 09/08/21] insulin NPH isoph U-100 human 100 unit/mL (3 mL) subcutaneous pen (Humulin N NPHU-100 Insulin KwikPen) 12 unit SUBCUT QPM 08/10/18 [History Confirmed 09/08/21] atorvastatin 40 mg tablet 40 mg PO DAILY 08/23/18 [History Confirmed 09/08/21] amlodipine 10 mg tablet 5 mg PO DAILY 09/20/18 [History Confirmed 09/08/21] aspirin 81 mg chewable tablet 81 mg PO DAILY 10/18/18 [History Confirmed 09/08/21] cyanocobalamin (vitamin B-12) 1,000 mcg tablet 1,000 mcg PO DAILY 05/02/19 [History Confirmed 09/08/21] acyclovir 400 mg tablet 400 mg PO BID 11/07/19 [History Confirmed 09/08/21] carvedilol 12.5 mg tablet (Coreg) 12.5 mg PO BID 30 Days #60 tab 11/07/19 [Rx Confirmed 09/08/21] rivaroxaban 15 mg tablet (Xarelto) 15 mg PO DAILY 30 Days #30 tab 11/07/19 [Rx Confirmed 09/08/21] cyclobenzaprine 10 mg tablet 10 mg PO TID PRN #15 tab 11/04/20 [Rx Confirmed 09/08/21] sodium citrate-citric acid 490 mg-640 mg/5 mL oral solution (Oracit) 10 ml PO QID 06/16/21 [History Confirmed 09/08/21] Objective - Height/Weight Height/Weight: Height 5 ft 6 in Weight 87.18 kg BSA for Today's Weight 1.99 - Vital Signs Vital Signs: 09/08/21 10:57 Temperature 98 F Pulse Rate [Left Brachial] 72 Respiratory Rate 20 Blood Pressure [Right Arm] 133/69 02 Sat by Pulse Oximetry 99 - Pain Bilateral Shoulder Pain Intensity: 1 Right Shoulder Pain Intensity: 2 Generalized Back Pain Intensity: 0 Left Arm Pain Intensity: 0 Generalized Teeth Pain Intensity: 0 Physical Exam Narrative: CONSTITUTIONAL: Awake, Alert and in No Acute Distress HEENT: Eyes were reactive to light bilaterally, anicteric sclere without conjunctival pallor. Nasal mucosa was non-erythematous. Mucous membranes were moist. Oral mucosa was without lesions or petechiae. Dentition was normal. NECK: There were no masses in the neck. Trachea was midline. Thyroid was not enlarged. LYMPHATIC: No auricular, anterior/posterior cervical, supraclavicular, infraclavicular, axillary, or inguinal adenopathy appreciated MUSCULOSKELETAL: Gait was normal. No clubbing or cyanosis noted. SKIN: No rashes, lesions, nodules, ecchymoses, erythema or petechiae were noted. PSYCHIATRIC: Oriented to time, place and person. Memory was intact. Mood was normal and affect was appropriate to mood. Patient demonstrated insight into his diagnosis and judgment was adequate. - ECOG Performance Status ECOG Score: 0 Results - Labs Labs: Diagram of Most Recent CBC and CMP 09/07/21 13:15 09/07/21 13:15 Labs - Last 7 Days 09/07/21 13:15: PHA Creatinine Clear 21.11, Sodium 132 L, Potassium 4.5, Chloride 101, Carbon Dioxide 21.5 L, BUN 29 H, Creatinine 2.38 H, Est GFR ( Amer) 24, Est GFR (Non-Af Amer) 20, Glucose 238 H, Uric Acid 4.8, Calcium 8.9, Phosphorus 3.7, Magnesium 2.0, Albumin 3.4, 25-OH Vitamin D Total 38.5, PTH Intact 137.7 H 09/07/21 13:15: Corrected WBC 9.0, Uncorrected WBC Count 9.0, RBC 3.92, Hgb 12.6, Hct 37.6, MCV 95.9, MCH 32.2, MCHC 33.5, RDW 13.7, Plt Count 185, MPV 9.4,Neut % (Auto) 59.8, Lymph % (Auto) 31.4, Archule[place] % (Auto) 7.0, Eos % (Auto) 1.2, Baso % (Auto) 0.6, Neut # (Auto) 5.4, Lymph # (Auto) 2.8, Arch[place] # (Auto) 0.6, Eos# (Auto) 0.1, Baso # (Auto) 0.1, Nucleated RBC % (auto) 0.0 Assessment and Plan (1) Multiple myeloma Qualifiers: Multiple myeloma remission status: not in remission Qualified Code(s): C90.00 - Multiple myeloma not having achieved remission 81 year old female with a long history of multiple myeloma currently in a VGPR on Daratumumab based on SPEP and 24 hr UPEP. We will need to check her SPEP andSFLC with every cycle and 24 hr UPEP every 3 months. She is tolerating therapy well overall. We will continue to monitor her closely. Her myeloma is refractory to VCD, she could not tolerate Revlimid, and she progressed on Carfilzomib. She is tolerating therapy with daratumumab well. o Continue Daratumumab at current dosing o Check SPEP, SFLC with every cycle o 24-hr UPEP, Urine SFLC every 3 cycles o Continue Acyclovir 400 mg BID prophylaxis Resume therapy See me in 1 month in [place] for monthly daratumumab. (2) B12 deficiency anemia Qualifiers: Vitamin B12 deficiency anemia type: unspecified B12 deficiency Qualified Code(s): D51.9 - Vitamin B12 deficiency anemia, unspecified Antibodies for parietal cells and intrinsic factor were normal. Switched to oral Vit B12 in 04/2019. Repeat B12 level in 07/2019 was 900 and 506 in 11/02. Continue oral vitamin B12. (3) 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 Completed Pamidronate 60 mg monthly for 2 years. She was switched to every 3 month but stopped after 04/2018 since she stayed in remission for total of 2 years. Last dose was 04/19/2018. - Chemo Plan Goal of Treatment: Palliative - Time with Patient Time Spent with Patient (Follow Up Visit): 25 minutes Coordination of Care & Counseling Time: Greater than 50% of time spent with patient was for coordination of care (as documented) and [id number] counseling of patient and/or family. Dictated By: Hunter Bello MD DD/ [id number] Signed By: <Electronically signed by MD Hunter Bello> 09/08/21 111[address] [facility] Work Phone: [phone]) 802-390110-12-2021 History of Present illness Narrative* Patient is here for follow-up continue management for history of persistent atrial fibrillation. Currently normal sinus rhythm., Previous evaluation for chest pain, hypertension hyperlipidemia. Sincelast time I saw her she reports has been feeling quite well. She denies any complaint of chest pain, palpitation, lightheadedness, dizziness or syncope. Her only complaint is issue related to nephrolithiasis. Previous laboratory data from 6-month ago noted and reviewed with her. * ASSESSMENT: * 1. Persistent atrial fibrillation. Currently in normal sinus rhythm. Currently on Xarelto with appropriate dose based on renal function * 2. Remote evaluation for chest pain, resolved. No recurrence. She did have noninvasive assessment at [facility], which was negative. Couple of years ago. No further recurrence * 3. Hypertension, controlled. * 4. Hyperlipidemia, on atorvastatin and fish oil. Controlled recent lab noted and reviewed * 5. Chronic kidney disease. stage of 3 * 6. Multiple myeloma. Patient report in remission * 7. Prior presentation with cerebellar infarct. Currently on aspirin and Xarelto and followed by neurology * 8. Moderate aortic regurgitation based on echocardiogram * 9. Moderate obesity * 10.There had been some notation in the chart that she had dilated aortic root. She could not be confirmed on a CT scan previously. She does have an echocardiogram that failed to demonstrate significant aortic root dilatation. * Plan * 1. Patient appears to be an appropriate therapy . She is not on MARK inhibitor due to her renal dysfunction she is tolerating anticoagulation well * 2. Patient was advised to remain on current therapy * 3. The patient was counseled regarding losing weight, exercise and dietary modification * 4. Risk, benefit and alternative anticoagulation reviewed with patient unkempt she understood and agreed. * 5. We will see her back in the office in 9 months and plan to repeat her lab work prior to next office visit * 6. Patient advised to notify of change in cardiac status or symptoms [facility] [address] DO Work Phone: [phone]) 997-586808-03-2021 Progress note Author Mike Bradley [facility] June 16, 2021 9:35am Note Date/Time June 16, 2021 9:2 9am [facility] at [address] [address] Hem/Onc Follow Up Note - OP Signed Patient: Hailee Trivedi MR#: [id number] : 1940 Acct:[id number] Age/Sex: 81 / F Type: REG RCR Copies to: Curt Clark MD~ Subjective Date/Time of Service: Date of Service: 06/16/2021 Time of Service: 09:28 Chief Complaint: Patient is here today for 1 month follow up visit for multiple myeloma and to go over labs. No new concerns HPI: She is here for routine follow-up. Her SPEP revealed a small M-spike of 0.2 g/dL with an IgG [place] specificity. She hadn't had a previous SPEP in 5 years per my review. Her 24-hr UPEP revealed a small M-spike as well but it was <100 mg/24 hr. She did not have immunoparesis on her labs. She feels well and has no complaints today. - Summary of Therapies Summary of Therapies: 1. Velcade/dexamethasone induction regimen with dexamethasone 20 mg started 07/08/2014, kappa light chain decreased to 833 and 33 from 7000 in October 2014. 2. Tried Revlimid in September 2014, discontinued 11/02/2014 due to suspicion that it may cause itching. 3. Velcade 1.3 mg/m sq weekly along with dexamethasone 6 mg p.o. weekly, light chain improved from 833 to 570 as of 04/18/2015, then increased again in May 2015. 4. Velcade induction regimen restarted with dexamethasone 20 mg p.o. weekly on 07/01 patient experienced extreme fatigue due to dehydration from hyperglycemia and diarrhea. 5. Velcade 1.3 mg with dexamethasone 6 mg and cyclophosphamide 300 mg IV [id number]/15/2015, developed grade 2 anemia, fatigue and grade 3 diarrhea. Cyclophosphamide was switched to p.o. 50 mg three weeks on, one week off on 09/26/2015, however, free kappa light chain went down to 1179 on 10/24/2015. 6. Carfilzomib 20 mg/m2 on days 1,2,8,9,15,16 of a 21 day cycle, started on 11/04/2015-02/24/2016. Discontinued due to disease progression. -Dose escalated to 27mg/m2 in cycle 2, on 12/17/2015. Dose reduced to 20mg/m2 on cycle 4 day 15 due to grade 2 fatigue. CURRENT THERAPY 1. Daratumumab 03/17/2016-. Total 39 cycles. -03/17/16-05/05/16, weekly. -05/19/16-08/25/16, biweekly. -09/22/16-, every 4 weeks. 09/21/2017 held due to dizziness, resumed 12/21/2017. Skip treatment on 12/13/18 per patient request. -07/2019-, every 6 week per patient request. -Dose held in 01/2020 and 02/2020 due to COVID-19 pandemics. -Resumed every 4 weeks cycle on 03/19/20. 2. Switched to DARZALEX Faspro 01/12/2021, profound fatigue after 1 cycle. -Switching back to infusional Daratumumab 02/17/21. 2. VitB12 injections, monthly, switched to oral in 04/2019. ROS Details: All systems reviewed & no additional complaints except as documented Subjective/ROS - Narrative: CONSTITUTIONAL: Fevers [-], Chills [-], Nightsweats [-], Weight Loss [-], Hot Flashes [-], Fatigue [+] HEENT: Changes in Vision [-], Changes in Hearing [-], Eye Pain [-], Ear Pain [- ], Mouth Sores [-], Change in Taste [-], Sore Throat [-], Hoarseness [-] CARDIOVASCULAR: Palpitations [-], Chest Pain [-], Chest Tightness [-], Swellingin Extremities [-] RESPIRATORY: Cough [-], Shortness of Breath [-], Dyspnea on Exertion [-], Wheezing [-] GASTROINTESTINAL: Abdominal Pain [-], Diarrhea [-], Constipation [-], Nausea [- ], Vomiting [-], Early Satiety [-], Hematochezia [-], Melena [-] LYMPHATIC: Swollen Glands [-], Enlarged Lymph Nodes [-] INTEGUMENTARY: Rashes [-], Nodules [-], Ulcers [-], Blisters [-], Pigmentation Changes [-] HEMATOLOGIC: Easy Bruising [-], Gum Bleeding [-], Epistaxis [-], Prolonged Bleeding [-], Heavy Menses [-] GENITOURINARY: Hematuria [-], Difficulty Voiding [-], Pain with Voiding [-], Frequent Voiding [-] NEUROLOGIC: Numbness [-], Tingling [-], Altered Gait [-], Muscle Weakness [-] MUSCULOSKELETAL: Muscle Pain [-], Bone Pain [-], Joint Pain [-] PSYCHIATRIC: Depressed Mood [-], Anxiety [-], Stressed [-] [facility] - Medical History Medical History: Medical History (Last Reviewed 04/16/20 @ 09:36 by Carol Younger APRN) Afib CKD (chronic kidney disease) CVA (cerebral vascular accident) Diabetes HTN (hypertension) Hyperlipidemia Kidney stone Multiple myeloma - Surgical History Surgical History: Surgical History (Last Reviewed 04/16/20 @ 09:37 by Carol Younger APRN) History of cholecystectomy History of hemorrhoidectomy History of hysterectomy History of renal stent Hx of lithotripsy - Social History Smoking Status: Never smoker Substance Use Type: None Home Medications & Allergies Allergies lenalidomide [From Revlimid] Allergy (Mild, Verified 06/16/21 09:04) Rash oxybutynin Allergy (Verified 06/16/21 09:04) Rash pregabalin [From Lyrica] Allergy (Verified 06/16/21 09:04) double vision Home Medications Fish Oil 1,200 cap PO BID 07/14/17 [History Confirmed 06/16/21] insulin lispro 100 unit/mL subcutaneous pen (Humalog KwikPen (U-100) Insulin) See Protocol SUB-Q ACHS PRN 07/14/17 [History Confirmed 06/16/21] sodium bicarbonate 650 mg tablet 650 mg PO BID 07/14/17 [History Confirmed 06/16/21] cholecalciferol (vitamin D3) 125 mcg (5,000 unit) tablet (Vitamin D3) 1,000 unitPO DAILY 08/10/18 [History Confirmed 06/16/21] insulin NPH isoph U-100 human 100 unit/mL (3 mL) subcutaneous pen (Humulin N NPHU-100 Insulin KwikPen) 12 unit SUBCUT QPM 08/10/18 [History Confirmed 06/16/21] atorvastatin 40 mg tablet 40 mg PO DAILY 08/23/18 [History Confirmed 06/16/21] amlodipine 10 mg tablet 5 mg PO DAILY 09/20/18 [History Confirmed 06/16/21] aspirin 81 mg chewable tablet 81 mg PO DAILY 10/18/18 [History Confirmed 06/16/21] cyanocobalamin (vitamin B-12) 1,000 mcg tablet 1,000 mcg PO DAILY 05/02/19 [History Confirmed 06/16/21] acyclovir 400 mg tablet 400 mg PO BID 11/07/19 [History Confirmed 06/16/21] carvedilol 12.5 mg tablet (Coreg) 12.5 mg PO BID 30 Days #60 tab 11/07/19 [Rx Confirmed 06/16/21] rivaroxaban 15 mg tablet (Xarelto) 15 mg PO DAILY 30 Days #30 tab 11/07/19 [Rx Confirmed 06/16/21] cyclobenzaprine 10 mg tablet 10 mg PO TID PRN #15 tab 11/04/20 [Rx Confirmed 06/16/21] sodium citrate-citric acid 490 mg-640 mg/5 mL oral solution (Oracit) 5 ml PO ONCE 06/16/21 [History Confirmed 06/16/21] Objective - Height/Weight Height/Weight: Height 5 ft 6 in Weight 86.183 kg BSA for Today's Weight 2.00 - Vital Signs Vital Signs: 06/16/21 09:05 Temperature 98.0 F Pulse Rate [Left Brachial] 65 Respiratory Rate 20 Blood Pressure [Right Arm] 142/62 H 02 Sat by Pulse Oximetry 99 - Pain Bilateral Shoulder Pain Intensity: 1 Right Shoulder Pain Intensity: 2 Generalized Back Pain Intensity: 0 Left Arm Pain Intensity: 0 Generalized Teeth Pain Intensity: 0 - Emotional Needs Assessment Emotional Needs Assessment: Emotional Needs Identified? No Physical Exam Narrative: CONSTITUTIONAL: Awake, Alert and in No Acute Distress HEENT: Eyes were reactive to light bilaterally, anicteric sclere without conjunctival pallor. Nasal mucosa was non-erythematous. Mucous membranes were moist. Oral mucosa was without lesions or petechiae. Dentition was normal. NECK: There were no masses in the neck. Trachea was midline. Thyroid was not enlarged. LYMPHATIC: No auricular, anterior/posterior cervical, supraclavicular, infraclavicular, axillary, or inguinal adenopathy appreciated MUSCULOSKELETAL: Gait was normal. No clubbing or cyanosis noted. SKIN: No rashes, lesions, nodules, ecchymoses, erythema or petechiae were noted. PSYCHIATRIC: Oriented to time, place and person. Memory was intact. Mood was normal and affect was appropriate to mood. Patient demonstrated insight into his diagnosis and judgment was adequate. - ECOG Performance Status ECOG Score: 1 Results - Labs Labs: Diagram of Most Recent CBC and CMP 06/09/21 09:40 06/09/21 09:40 Laboratory Last Values WBC 10.0 x10E3/uL (4.5-11.0) 10/28/20 11:11 Corrected WBC 7.5 X10E3/uL (3.8-11.6) 06/09/21 09:40 Uncorrected WBC Count 7.5 x10E3/uL (4.5-11.0) 06/09/21 09:40 RBC 3.97 x10E6/uL (3.60-5.00) 06/09/21 09:40 Hgb 12.6 g/dL (11.8-15.4) 06/09/21 09:40 Hct 37.5 % (34.0-46.4) 06/09/21 09:40 MCV 94.4 fl (80-100) 06/09/21 09:40 MCH 31.8 pg (24.7-34.3) 06/09/21 09:40 MCHC 33.7 g/dL (32.0-35.0) 06/09/21 09:40 RDW 13.9 % (11.9-15.3) 06/09/21 09:40 Plt Count 204 x10E3/uL (150-450) 06/09/21 09:40 MPV 9.1 fl (6.3-10.7) 06/09/21 09:40 Neut % (Auto) 58.2 % (.) 06/09/21 09:40 Lymph % (Auto) 34.5 % (.) 06/09/21 09:40 Archuleta % (Auto) 5.6 % (.) 06/09/21 09:40 Eos % (Auto) 1.1 % (.) 06/09/21 09:40 Baso % (Auto) 0.6 % (.) 06/09/21 09:40 Neut # (Auto) 4.4 x10E3/uL (1.8-7.7) 06/09/21 09:40 Lymph # (Auto) 2.6 x10E3/uL (1.00-4.8) 06/09/21 09:40 Archule[place] # (Auto) 0.4 x10E3/uL (0.0-0.8) 06/09/21 09:40 Eos # (Auto) 0.1 x10E3/uL (0.0-0.45) 06/09/21 09:40 Baso # (Auto) 0.0 x10E3/uL (0.0-0.2) 06/09/21 09:40 Nucleated RBC % (auto) 0.0 % (0-0.5) 06/09/21 09:40 PHA Creatinine Clear 19.87 06/09/21 09:40 Sodium 137 mmol/L (136-146) 06/09/21 09:40 Potassium 4.5 mmol/L (3.5-5.1) 06/09/21 09:40 Chloride 108 mmol/L (95-114) 06/09/21 09:40 Carbon Dioxide 19.3 mmol/L (22.0-30.0) L 06/09/21 09:40 BUN 33 mg/dL (9-23) H 06/09/21 09:40 Creatinine 2.53 mg/dL (0.44-1.03) H 06/09/21 09:40 Est GFR ( Amer) 22 mL/Min 06/09/21 09:40 Est GFR (Non-Af Amer) 18 mL/Min 06/09/21 09:40 Glucose 143 mg/dL (70-100) H 06/09/21 09:40 POC Glucose 133 mg/dl 01/02/19 09:45 Estimat Average Glucose 183 mg/dL 01/02/19 09:35 Hemoglobin A1c 8.0 % (4.3-5.6) H 01/02/19 09:35 Uric Acid 6.2 mg/dL (2.6-7.2) 02/24/21 08:35 Calcium 8.9 mg/dL (8.2-10.2) 06/09/21 09:40 Phosphorus 3.1 mg/dL (2.5-4.6) 02/24/21 08:35 Magnesium 1.9 mg/dL (1.6-2.6) 02/24/21 08:35 Total Bilirubin 0.8 mg/dL (0.3-1.2) 06/09/21 09:40 AST 17 U/L (10-42) 06/09/21 09:40 ALT 14 U/L (10-60) 06/09/21 09:40 Alkaline Phosphatase 85 U/L (32-92) 06/09/21 09:40 Serum Total Protein 6.1 g/dL (6.0-8.5) 06/09/21 09:40 Total Protein 6.1 gm/dL (6.1-7.9) 06/09/21 09:40 Albumin 3.5 gm/dL (3.2-5.5) 06/09/21 09:40 Albumin (Send Out) 3.5 g/dL (2.9-4.4) 06/09/21 09:40 Globulin 2.6 gm/dL 06/09/21 09:40 Globulin (PEP) 2.6 g/dL (2.2-3.9) 06/09/21 09:40 Albumin/Globulin Ratio 1.3 06/09/21 09:40 Albumin/Globulin (PEP) 1.3 (0.7-1.7) 06/09/21 09:40 Mxvwo-7-Aglyutvbm 0.2 g/dL (0.0-0.4) 06/09/21 09:40 Xejut-1-Dzdncdnig 0.9 g/dL (0.4-1.0) 06/09/21 09:40 Beta Globulins 0.9 g/dL (0.7-1.3) 06/09/21 09:40 Gamma Globulins 0.7 g/dL (0.4-1.8) 06/09/21 09:40 M-Krystian 0.2 g/dL (Not Observed) H 06/09/21 09:40 PEP Note (.) 06/09/21 09:40 PEP Interpretation N/A 06/09/21 09:28 1,25 Dihydroxy Vit D2 <1.0 ng/mL (.) 09/15/17 10:45 1,25 Dihydroxy Vit D3 65 ng/mL (.) 09/15/17 10:45 Vitamin B12 506 pg/mL (180-914) 10/28/20 11:11 25-OH Vitamin D Total 57.5 ng/mL (30-100) 02/24/21 08:35 PTH Intact 125.3 pg/mL (12-88) H 02/24/21 08:35 Urine Color Red (Yellow) A 02/24/21 12:05 Urine Appearance Turbid (Clear) A 02/24/21 12:05 Urine pH (5.0-9.0) 02/24/21 12:05 Ur Specific [place] 1.009 (1.001-1.030) 02/24/21 12:05 Urine Protein mg/dL (Negative) 02/24/21 12:05 Urine Glucose (UA) mg/dL (Normal) 02/24/21 12:05 Urine Ketones (Negative) 02/24/21 12:05 Urine Occult Blood (Negative) 02/24/21 12:05 Urine Nitrite (Negative) 02/24/21 12:05 Urine Bilirubin (Negative) 02/24/21 12:05 Urine Urobilinogen mg/dL (Normal) 02/24/21 12:05 Ur Leukocyte Esterase (Negative) 02/24/21 12:05 Urine RBC Innumerable /HPF (0-4) H 02/24/21 12:05 Urine WBC 0-1 /HPF (0-4) 02/24/21 12:05 Ur Squamous Epith Cells 0-1 /HPF (0-2) 02/24/21 12:05 Urine Bacteria None seen (None Seen) 02/24/21 12:05 Hyaline Casts 0-8 /LPF (0-8) 02/13/20 09:00 Ur Random Creatinine 77.2 mg/dl 02/24/21 12:05 U Random Total Protein 8.5 mg/dL (Not Estab.) 06/09/21 09:28 Urine Collection Time 24 Hours 06/09/21 09:28 Urine Total Volume 1475 ml 06/09/21 09:28 Ur Albumin 24 Hour 33.2 % (.) 06/09/21 09:28 Protein/Creatinin Ratio 2098 mg/g cre (0-200) H 02/24/21 12:05 Ur Protein 24 Hr Calc 125 mg/24 hr (30-150) 06/09/21 09:28 U Fafgx-8-Scabxbpj 4.3 % (.) 06/09/21 09:28 U Gaftd-8-Wprysitl 16.0 % (.) 06/09/21 09:28 U Beta Globulin 36.7 % (.) 06/09/21 09:28 U Gamma Globulin 9.8 % (.) 06/09/21 09:28 U PEP M-Krystian 24 Hr 26.5 mg/24 hr (Not Observed) H 06/09/21 09:28 Urine Random PEP Note (.) 06/09/21 09:28 IgG 654 mg/dL (586-1602) 06/09/21 09:40 IgA 65 mg/dL (64-422) 06/09/21 09:40 IgM 23 mg/dL (26-217) L 06/09/21 09:40 Serum Immunofixation (.) A 06/09/21 09:40 AHILEE IgG 487 mg/dL (700-1600) L 10/13/18 09:10 HAILEE IgA 65 mg/dL (64-422) 10/13/18 09:10 HAILEE IgM 38 mg/dL (26-217) 10/13/18 09:10 Urine Immunofixation (.) A 06/09/21 09:28 Ur IEP M-Krystian % 24 hr 21.1 % (Not Observed) H 06/09/21 09:28 Anti-Parietal Cell Ab 1.9 Units (0.0-20.0) 02/28/19 11:21 Intrinsic Factor Ab 0.9 AU/mL (0.0-1.1) 02/28/19 11:21 Free [place] LC, Quant 20.1 mg/L (3.3-19.4) H 06/09/21 09:40 Free Lambda LC, Quant 11.9 mg/L (5.7-26.3) 06/09/21 09:40 Free [place]/Lambda Ratio 1.69 (0.26-1.65) H 06/09/21 09:40 Assessment and Plan (1) Multiple myeloma Qualifiers: Multiple myeloma remission status: not in remission Qualified Code(s): C90.00 - Multiple myeloma not having achieved remission 81 year old female with a long history of multiple myeloma currently in a VGPR on Daratumumab based on SPEP and 24 hr UPEP. We will need to check her SPEP andSFLC with every cycle and 24 hr UPEP every 3 months. She is tolerating therapy well overall. We will continue to monitor her closely. Her myeloma is refractory to VCD, she could not tolerate Revlimid, and she progressed on Carfilzomib. She is tolerating therapy with daratumumab well. o Continue Daratumumab at current dosing o Check SPEP, SFLC with every cycle o 24-hr UPEP, Urine SFLC every 3 cycles o Continue Acyclovir 400 mg BID prophylaxis o Follow-up in 3 months (2) B12 deficiency anemia Qualifiers: Vitamin B12 deficiency anemia type: unspecified B12 deficiency Qualified Code(s): D51.9 - Vitamin B12 deficiency anemia, unspecified Antibodies for parietal cells and intrinsic factor were normal. Switched to oral Vit B12 in 04/2019. Repeat B12 level in 07/2019 was 900 and 506 in 11/02. Continue oral vitamin B12. (3) 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 Completed Pamidronate 60 mg monthly for 2 years. She was switched to every 3 month but stopped after 04/2018 since she stayed in remission for total of 2 years. Last dose was 04/19/2018. - Chemo Plan Goal of Treatment: Palliative - Time with Patient Time Spent with Patient (Follow Up Visit): 25 minutes Coordination of Care & Counseling Time: Greater than 50% of time spent with patient was for coordination of care (as documented) and [id number] counseling of patient and/or family. Dictated By: Mike Bradley MD DD/ Signed By: <Electronically signed by Mike Bradley MD> 06/16/21 0935 [facility] Work Phone: [phone] 586-894407-06-2021 Progress note Author Mike Bradley [facility] May 19, 2021 2:08pm Note Date/Time May 19, 2021 1:50p m [facility] at [address] [address] Hem/Onc Follow Up Note - OP Signed Patient: Hailee Trivedi MR#: [id number] : 1940 Acct:[id number] Age/Sex: 81 / F Type: REG RCR Copies to: Curt Clark MD~ Subjective Date/Time of Service: Date of Service: 05/19/2021 Time of Service: 13:49 Chief Complaint: Patient is here today for 1 month follow up visit for multiple myeloma and metastatic multiple 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. She has treatment today and no new concerns HPI: She is here for routine follow-up. She had SFLC which were drawn and results showed reduction over previous value with mildly elevated ratio at 1.93 which could be consistent with her renal dysfunction. She feels well without any new complaints today. - Summary of Therapies Summary of Therapies: 1. Velcade/dexamethasone induction regimen with dexamethasone 20 mg started 07/08/2014, kappa light chain decreased to 833 and 33 from 7000 in October 2014. 2. Tried Revlimid in September 2014, discontinued 11/02/2014 due to suspicion that it may cause itching. 3. Velcade 1.3 mg/m sq weekly along with dexamethasone 6 mg p.o. weekly, light chain improved from 833 to 570 as of 04/18/2015, then increased again in May 2015. 4. Velcade induction regimen restarted with dexamethasone 20 mg p.o. weekly on 07/01 patient experienced extreme fatigue due to dehydration from hyperglycemia and diarrhea. 5. Velcade 1.3 mg with dexamethasone 6 mg and cyclophosphamide 300 mg IV [id number]/15/2015, developed grade 2 anemia, fatigue and grade 3 diarrhea. Cyclophosphamide was switched to p.o. 50 mg three weeks on, one week off on 09/26/2015, however, free kappa light chain went down to 1179 on 10/24/2015. 6. Carfilzomib 20 mg/m2 on days 1,2,8,9,15,16 of a 21 day cycle, started on 11/04/2015-02/24/2016. Discontinued due to disease progression. -Dose escalated to 27mg/m2 in cycle 2, on 12/17/2015. Dose reduced to 20mg/m2 on cycle 4 day 15 due to grade 2 fatigue. CURRENT THERAPY 1. Daratumumab 03/17/2016-. Total 39 cycles. -03/17/16-05/05/16, weekly. -05/19/16-08/25/16, biweekly. -09/22/16-, every 4 weeks. 09/21/2017 held due to dizziness, resumed 12/21/2017. Skip treatment on 12/13/18 per patient request. -07/2019-, every 6 week per patient request. -Dose held in 01/2020 and 02/2020 due to COVID-19 pandemics. -Resumed every 4 weeks cycle on 03/19/20. 2. Switched to DARZALEX Faspro 01/12/2021, profound fatigue after 1 cycle. -Switching back to infusional Daratumumab 02/17/21. 2. VitB12 injections, monthly, switched to oral in 04/2019. ROS Details: All systems reviewed & no additional complaints except as documented Subjective/ROS - Narrative: CONSTITUTIONAL: Fevers [-], Chills [-], Nightsweats [-], Weight Loss [-], Hot Flashes [-], Fatigue [+] HEENT: Changes in Vision [-], Changes in Hearing [-], Eye Pain [-], Ear Pain [- ], Mouth Sores [-], Change in Taste [-], Sore Throat [-], Hoarseness [-] CARDIOVASCULAR: Palpitations [-], Chest Pain [-], Chest Tightness [-], Swellingin Extremities [-] RESPIRATORY: Cough [-], Shortness of Breath [-], Dyspnea on Exertion [-], Wheezing [-] GASTROINTESTINAL: Abdominal Pain [-], Diarrhea [-], Constipation [-], Nausea [- ], Vomiting [-], Early Satiety [-], Hematochezia [-], Melena [-] LYMPHATIC: Swollen Glands [-], Enlarged Lymph Nodes [-] INTEGUMENTARY: Rashes [-], Nodules [-], Ulcers [-], Blisters [-], Pigmentation Changes [-] HEMATOLOGIC: Easy Bruising [-], Gum Bleeding [-], Epistaxis [-], Prolonged Bleeding [-], Heavy Menses [-] GENITOURINARY: Hematuria [-], Difficulty Voiding [-], Pain with Voiding [-], Frequent Voiding [-] NEUROLOGIC: Numbness [-], Tingling [-], Altered Gait [-], Muscle Weakness [-] MUSCULOSKELETAL: Muscle Pain [-], Bone Pain [-], Joint Pain [-] PSYCHIATRIC: Depressed Mood [-], Anxiety [-], Stressed [-] [facility] - Medical History Medical History: Medical History (Last Reviewed 04/16/20 @ 09:36 by Carol Younger APRN) Afib CKD (chronic kidney disease) CVA (cerebral vascular accident) Diabetes HTN (hypertension) Hyperlipidemia Kidney stone Multiple myeloma - Surgical History Surgical History: Surgical History (Last Reviewed 04/16/20 @ 09:37 by Carol Younger APRN) History of cholecystectomy History of hemorrhoidectomy History of hysterectomy History of renal stent Hx of lithotripsy - Social History Smoking Status: Never smoker Substance Use Type: None Home Medications & Allergies Allergies lenalidomide [From Revlimid] Allergy (Mild, Verified 05/19/21 08:58) Rash oxybutynin Allergy (Verified 05/19/21 08:58) Rash pregabalin [From Lyrica] Allergy (Verified 05/19/21 08:58) double vision Home Medications Fish Oil 1,200 cap PO BID 07/14/17 [History Confirmed 02/06/21] insulin lispro 100 unit/mL subcutaneous pen (Humalog KwikPen (U-100) Insulin) See Protocol SUB-Q ACHS PRN 07/14/17 [History Confirmed 02/06/21] sodium bicarbonate 650 mg tablet 650 mg PO BID 07/14/17 [History Confirmed 02/06/21] cholecalciferol (vitamin D3) 125 mcg (5,000 unit) tablet (Vitamin D3) 1,000 unitPO DAILY 08/10/18 [History Confirmed 02/06/21] insulin NPH isoph U-100 human 100 unit/mL (3 mL) subcutaneous pen (Humulin N NPHU-100 Insulin KwikPen) 12 unit SUBCUT QPM 08/10/18 [History Confirmed 02/06/21] atorvastatin 40 mg tablet 40 mg PO DAILY 08/23/18 [History Confirmed 02/06/21] amlodipine 10 mg tablet 5 mg PO DAILY 09/20/18 [History Confirmed 02/06/21] aspirin 81 mg chewable tablet 81 mg PO DAILY 10/18/18 [History Confirmed 02/06/21] cyanocobalamin (vitamin B-12) 1,000 mcg tablet 1,000 mcg PO DAILY 05/02/19 [History Confirmed 02/06/21] acyclovir 400 mg tablet 400 mg PO BID 11/07/19 [History Confirmed 02/06/21] carvedilol 12.5 mg tablet (Coreg) 12.5 mg PO BID 30 Days #60 tab 11/07/19 [Rx Confirmed 02/06/21] rivaroxaban 15 mg tablet (Xarelto) 15 mg PO DAILY 30 Days #30 tab 11/07/19 [Rx Confirmed 02/06/21] cephalexin 250 mg capsule 250 mg PO DAILY 01/08/20 [History Confirmed 02/06/21] cyclobenzaprine 10 mg tablet 10 mg PO TID PRN #15 tab 11/04/20 [Rx Confirmed 02/06/21] Objective - Height/Weight Height/Weight: Height 5 ft 6 in Weight 85.548 kg BSA for Today's Weight 2.00 - Vital Signs Vital Signs: 05/19/21 09:00 05/19/21 13:23 Temperature 97.9 F Pulse Rate [Left Brachial] 64 68 Respiratory Rate 20 16 Blood Pressure [Right Arm] 121/79 125/61 02 Sat by Pulse Oximetry 98 98 - Pain Bilateral Shoulder Pain Intensity: 1 Right Shoulder Pain Intensity: 2 Generalized Back Pain Intensity: 0 Left Arm Pain Intensity: 0 Generalized Teeth Pain Intensity: 0 - Emotional Needs Assessment Emotional Needs Assessment: Emotional Needs Identified? Yes Emotional Needs Identified? No Support System Child/Children,Family,Friend Physical Exam Narrative: CONSTITUTIONAL: Awake, Alert and in No Acute Distress HEENT: Eyes were reactive to light bilaterally, anicteric sclere without conjunctival pallor. Nasal mucosa was non-erythematous. Mucous membranes were moist. Oral mucosa was without lesions or petechiae. Dentition was normal. NECK: There were no masses in the neck. Trachea was midline. Thyroid was not enlarged. LYMPHATIC: No auricular, anterior/posterior cervical, supraclavicular, infraclavicular, axillary, or inguinal adenopathy appreciated MUSCULOSKELETAL: Gait was normal. No clubbing or cyanosis noted. SKIN: No rashes, lesions, nodules, ecchymoses, erythema or petechiae were noted. PSYCHIATRIC: Oriented to time, place and person. Memory was intact. Mood was normal and affect was appropriate to mood. Patient demonstrated insight into his diagnosis and judgment was adequate. - ECOG Performance Status ECOG Score: 1 Results - Labs Labs: Diagram of Most Recent CBC and CMP 04/14/21 11:10 04/14/21 11:10 Laboratory Last Values WBC 10.0 x10E3/uL (4.5-11.0) 10/28/20 11:11 Corrected WBC 8.5 X10E3/uL (3.8-11.6) 04/14/21 11:10 Uncorrected WBC Count 8.5 x10E3/uL (4.5-11.0) 04/14/21 11:10 RBC 3.84 x10E6/uL (3.60-5.00) 04/14/21 11:10 Hgb 12.0 g/dL (11.8-15.4) 04/14/21 11:10 Hct 36.7 % (34.0-46.4) 04/14/21 11:10 MCV 95.7 fl (80-100) 04/14/21 11:10 MCH 31.2 pg (24.7-34.3) 04/14/21 11:10 MCHC 32.6 g/dL (32.0-35.0) 04/14/21 11:10 RDW 14.2 % (11.9-15.3) 04/14/21 11:10 Plt Count 209 x10E3/uL (150-450) 04/14/21 11:10 MPV 9.6 fl (6.3-10.7) 04/14/21 11:10 Neut % (Auto) 58.4 % (.) 04/14/21 11:10 Lymph % (Auto) 34.2 % (.) 04/14/21 11:10 [place] % (Auto) 5.7 % (.) 04/14/21 11:10 Eos % (Auto) 1.1 % (.) 04/14/21 11:10 Baso % (Auto) 0.6 % (.) 04/14/21 11:10 Neut # (Auto) 5.0 x10E3/uL (1.8-7.7) 04/14/21 11:10 Lymph # (Auto) 2.9 x10E3/uL (1.00-4.8) 04/14/21 11:10 [place] # (Auto) 0.5 x10E3/uL (0.0-0.8) 04/14/21 11:10 Eos # (Auto) 0.1 x10E3/uL (0.0-0.45) 04/14/21 11:10 Baso # (Auto) 0.0 x10E3/uL (0.0-0.2) 04/14/21 11:10 Nucleated RBC % (auto) 0.1 % (0-0.5) 04/14/21 11:10 PHA Creatinine Clear 23.23 04/14/21 11:10 Sodium 137 mmol/L (136-146) 04/14/21 11:10 Potassium 4.2 mmol/L (3.5-5.1) 04/14/21 11:10 Chloride 109 mmol/L (95-114) 04/14/21 11:10 Carbon Dioxide 18.5 mmol/L (22.0-30.0) L 04/14/21 11:10 BUN 29 mg/dL (9-23) H 04/14/21 11:10 Creatinine 2.17 mg/dL (0.44-1.03) H 04/14/21 11:10 Est GFR ( Amer) 27 mL/Min 04/14/21 11:10 Est GFR (Non-Af Amer) 22 mL/Min 04/14/21 11:10 Glucose 154 mg/dL (70-100) H 04/14/21 11:10 POC Glucose 133 mg/dl 01/02/19 09:45 Estimat Average Glucose 183 mg/dL 01/02/19 09:35 Hemoglobin A1c 8.0 % (4.3-5.6) H 01/02/19 09:35 Uric Acid 6.2 mg/dL (2.6-7.2) 02/24/21 08:35 Calcium 8.5 mg/dL (8.2-10.2) 04/14/21 11:10 Phosphorus 3.1 mg/dL (2.5-4.6) 02/24/21 08:35 Magnesium 1.9 mg/dL (1.6-2.6) 02/24/21 08:35 Total Bilirubin 0.6 mg/dL (0.3-1.2) 04/14/21 11:10 AST 17 U/L (10-42) 04/14/21 11:10 ALT 13 U/L (10-60) 04/14/21 11:10 Alkaline Phosphatase 79 U/L (32-92) 04/14/21 11:10 Total Protein 6.0 gm/dL (6.1-7.9) L 04/14/21 11:10 Albumin 3.4 gm/dL (3.2-5.5) 04/14/21 11:10 Globulin 2.6 gm/dL 04/14/21 11:10 Albumin/Globulin Ratio 1.3 04/14/21 11:10 1,25 Dihydroxy Vit D2 <1.0 ng/mL (.) 09/15/17 10:45 1,25 Dihydroxy Vit D3 65 ng/mL (.) 09/15/17 10:45 Vitamin B12 506 pg/mL (180-914) 10/28/20 11:11 25-OH Vitamin D Total 57.5 ng/mL (30-100) 02/24/21 08:35 PTH Intact 125.3 pg/mL (12-88) H 02/24/21 08:35 Urine Color Red (Yellow) A 02/24/21 12:05 Urine Appearance Turbid (Clear) A 02/24/21 12:05 Urine pH (5.0-9.0) 02/24/21 12:05 Ur Specific [place] 1.009 (1.001-1.030) 02/24/21 12:05 Urine Protein mg/dL (Negative) 02/24/21 12:05 Urine Glucose (UA) mg/dL (Normal) 02/24/21 12:05 Urine Ketones (Negative) 02/24/21 12:05 Urine Occult Blood (Negative) 02/24/21 12:05 Urine Nitrite (Negative) 02/24/21 12:05 Urine Bilirubin (Negative) 02/24/21 12:05 Urine Urobilinogen mg/dL (Normal) 02/24/21 12:05 Ur Leukocyte Esterase (Negative) 02/24/21 12:05 Urine RBC Innumerable /HPF (0-4) H 02/24/21 12:05 Urine WBC 0-1 /HPF (0-4) 02/24/21 12:05 Ur Squamous Epith Cells 0-1 /HPF (0-2) 02/24/21 12:05 Urine Bacteria None seen (None Seen) 02/24/21 12:05 Hyaline Casts 0-8 /LPF (0-8) 02/13/20 09:00 Ur Random Creatinine 77.2 mg/dl 02/24/21 12:05 U Random Total Protein 162 mg/dl (0-9) H 02/24/21 12:05 Protein/Creatinin Ratio 2098 mg/g cre (0-200) H 02/24/21 12:05 Serum Immunofixation (.) 10/13/18 09:10 HAILEE IgG 487 mg/dL (700-1600) L 10/13/18 09:10 HAILEE IgA 65 mg/dL (64-422) 10/13/18 09:10 HAILEE IgM 38 mg/dL (26-217) 10/13/18 09:10 Urine Immunofixation (.) 10/13/18 09:10 Anti-Parietal Cell Ab 1.9 Units (0.0-20.0) 02/28/19 11:21 Intrinsic Factor Ab 0.9 AU/mL (0.0-1.1) 02/28/19 11:21 Free [place] LC, Quant 17.8 mg/L (3.3-19.4) 04/14/21 11:10 Free Lambda LC, Quant 9.2 mg/L (5.7-26.3) 04/14/21 11:10 Free [place]/Lambda Ratio 1.93 (0.26-1.65) H 04/14/21 11:10 Assessment and Plan (1) Multiple myeloma in remission 81 year old female with a long history of multiple myeloma currently in a good response on Daratumumab. The issue with her SFLC is that it is highly likely that her mildly elevated K/L ratio is secondary to her renal dysfunction and notnecessarily her myeloma as kappa usually predominates in these scenarios. Because of this, we will recheck her full myeloma lab workup. Her myeloma is refractory to VCD, she could not tolerate Revlimid, and she progressed on Carfilzomib. She is tolerating therapy with daratumumab well. o Continue Daratumumab at current dosing o Check SPEP, 24-hr UPEP, Urine SFLC, Quantitative Immunoglobulins o Continue Acyclovir 400 mg BID prophylaxis o Follow-up in 1 month (2) B12 deficiency anemia Antibodies for parietal cells and intrinsic factor were normal. Switched to oral Vit B12 in 04/2019. Repeat B12 level in 07/2019 was 900 and 506 in 11/02. Continue oral vitamin B12. (3) 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 Completed Pamidronate 60 mg monthly for 2 years. She was switched to every 3 month but stopped after 04/2018 since she stayed in remission for total of 2 years. Last dose was 04/19/2018. - Chemo Plan Goal of Treatment: Palliative - Time with Patient Time Spent with Patient (Follow Up Visit): 25 minutes Coordination of Care & Counseling Time: Greater than 50% of time spent with patient was for coordination of care (as documented) and [id number] counseling of patient and/or family. Dictated By: Mike Bradley MD DD/ [id number] Signed By: <Electronically signed by Mike Bradley MD> 05/19/21 1400 [facility] Work Phone: [phone]) [phone] Progress note Author Margarito Buenrostro [facility] March 24, 2021 12:36pm Note Date/Time March 24, 2021 12:33 pm [facility] [place] [address] Hem/Onc Follow Up Note - OP Signed Patient: Hailee Trivedi MR#: [id number] : 1940 Acct:[id number] Age/Sex: 80 / F Type: REG RCR Copies to: Cutr Clark MD~ Subjective Date/Time of Service: Date of Service: 03/24/2021 Time of Service: 12:32 Chief Complaint: Patient is here for a one month follow up with labs for review. HPI: Hailee presented for routine follow up. She has been feeling better. She has no other concerns today. She continues on baby aspirin as directed. Chronically fatigued, stable. - Summary of Therapies Summary of Therapies: 1. Velcade/dexamethasone induction regimen with dexamethasone 20 mg started 07/08/2014, kappa light chain decreased to 833 and 33 from 7000 in October 2014. 2. Tried Revlimid in September 2014, discontinued 11/02/2014 due to suspicion that it may cause itching. 3. Velcade 1.3 mg/m sq weekly along with dexamethasone 6 mg p.o. weekly, light chain improved from 833 to 570 as of 04/18/2015, then increased again in May 2015. 4. Velcade induction regimen restarted with dexamethasone 20 mg p.o. weekly on 07/01 patient experienced extreme fatigue due to dehydration from hyperglycemia and diarrhea. 5. Velcade 1.3 mg with dexamethasone 6 mg and cyclophosphamide 300 mg IV [id number]/15/2015, developed grade 2 anemia, fatigue and grade 3 diarrhea. Cyclophosphamide was switched to p.o. 50 mg three weeks on, one week off on 09/26/2015, however, free kappa light chain went down to 1179 on 10/24/2015. 6. Carfilzomib 20 mg/m2 on days 1,2,8,9,15,16 of a 21 day cycle, started on 11/04/2015-02/24/2016. Discontinued due to disease progression. -Dose escalated to 27mg/m2 in cycle 2, on 12/17/2015. Dose reduced to 20mg/m2 on cycle 4 day 15 due to grade 2 fatigue. CURRENT THERAPY 1. Daratumumab 03/17/2016-. Total 39 cycles. -03/17/16-05/05/16, weekly. -05/19/16-08/25/16, biweekly. -09/22/16-, every 4 weeks. 09/21/2017 held due to dizziness, resumed 12/21/2017. Skip treatment on 12/13/18 per patient request. -07/2019-, every 6 week per patient request. -Dose held in 01/2020 and 02/2020 due to COVID-19 pandemics. -Resumed every 4 weeks cycle on 03/19/20. 2. Switched to DARZALEX Faspro 01/12/2021, profound fatigue after 1 cycle. -Switching back to infusional Daratumumab 02/17/21. 2. VitB12 injections, monthly, switched to oral in 04/2019. ROS Details: All systems reviewed & no additional complaints except as documented Subjective/ROS - Narrative: Subjective/ROS-narrative: Constitutional: Negative: No chills, fever, night sweats, positive: fatigue HEENT: Positive: sinus drainage, clear Cardiovascular: Negative: Chest pain, edema, palpitations Respiratory: Negative: Cough, shortness of breath, hemoptysis Gastrointestinal: Negative: pain, bloating, constipation, diarrhea, nausea, vomiting Genitourinary: Negative: Frequency, dysuria, history of CKD stage 4, recent lithotripsy with stone removed. Musculoskeletal positive low back pain x2 days resolved, ambulatory with cane Neurologic: Negative: Dizziness, headache, numbness, tingling positive: forgetful at times Psychiatric: Negative: Anxiety, depression, sleep changes Hematologic/lymphatic: Negative: Bleeding, bruising, enlarged lymph nodes Endocrine: Negative: Excessive sweating, flushing, intolerance to cold, intolerance to heat, weight gain/loss Allergic/immunology: Negative: Pruritus, rash PMFSH - Medical History Medical History: Medical History (Last Reviewed 04/16/20 @ 09:36 by Carol Younger APRN) Afib CKD (chronic kidney disease) CVA (cerebral vascular accident) Diabetes HTN (hypertension) Hyperlipidemia Kidney stone Multiple myeloma - Surgical History Surgical History: Surgical History (Last Reviewed 04/16/20 @ 09:37 by Carol Younger APRN) History of cholecystectomy History of hemorrhoidectomy History of hysterectomy History of renal stent Hx of lithotripsy - Social History Smoking Status: Never smoker Substance Use Type: None Home Medications & Allergies Allergies lenalidomide [From Revlimid] Allergy (Mild, Verified 02/24/21 09:38) Rash oxybutynin Allergy (Verified 02/24/21 09:38) Rash pregabalin [From Lyrica] Allergy (Verified 02/24/21 09:38) double vision Home Medications Fish Oil 1,200 cap PO BID 07/14/17 [History Confirmed 02/06/21] insulin lispro [Humalog KwikPen Insulin] See Protocol SUB-Q ACHS PRN 07/14/17 [History Confirmed 02/06/21] sodium bicarbonate 650 mg PO BID 07/14/17 [History Confirmed 02/06/21] Humulin N NPH Insulin KwikPen 12 unit SUBCUT QPM 08/10/18 [History Confirmed 02/06/21] cholecalciferol (vitamin D3) [Vitamin D3] 1,000 unit PO DAILY 08/10/18 [History Confirmed 02/06/21] atorvastatin 40 mg PO DAILY 08/23/18 [History Confirmed 02/06/21] amlodipine 5 mg PO DAILY 09/20/18 [History Confirmed 02/06/21] aspirin 81 mg PO DAILY 10/18/18 [History Confirmed 02/06/21] cyanocobalamin (vitamin B-12) 1,000 mcg PO DAILY 05/02/19 [History Confirmed 02/06/21] acyclovir 400 mg PO BID 11/07/19 [History Confirmed 02/06/21] carvedilol [Coreg] 12.5 mg PO BID 30 Days #60 tab 11/07/19 [Rx Confirmed 02/06/21] rivaroxaban [Xarelto] 15 mg PO DAILY 30 Days #30 tab 11/07/19 [Rx Confirmed 02/06/21] cephalexin 250 mg PO DAILY 01/08/20 [History Confirmed 02/06/21] cyclobenzaprine 10 mg PO TID PRN #15 tab 11/04/20 [Rx Confirmed 02/06/21] prednisone 20 mg PO DAILY #6 tab 01/02/21 [Rx Confirmed 02/06/21] Objective - Height/Weight Height/Weight: Height 5 ft 6 in Weight 83.189 kg BSA for Today's Weight 1.97 - Vital Signs Vital Signs: 03/24/21 08:56 Temperature 96.4 F L Pulse Rate [Left Brachial] 60 Respiratory Rate 18 Blood Pressure [Right Arm] 132/62 02 Sat by Pulse Oximetry 99 - Pain Generalized Back Pain Intensity: 0 Left Arm Pain Intensity: 0 Generalized Teeth Pain Intensity: 0 Bilateral Shoulder Pain Intensity: 1 Right Shoulder Pain Intensity: 2 - Emotional Needs Assessment Emotional Needs Assessment: Emotional Needs Identified? Yes Support System Child/Children,Family,Friend Physical Exam Narrative: GENERAL APPEARANCE: In no acute distress. HEENT: No jaundice or lymphadenopathy. LUNGS: Breathing comfortably on room air. CTAB. EXTREMITIES: No edema. NEUROLOGIC: Grossly intact. - ECOG Performance Status ECOG Score: 1 Results - Labs Labs: Diagram of Most Recent CBC and CMP 03/17/21 13:30 02/24/21 08:35 Labs - Last 7 Days 03/17/21 13:30: Free [place] LC, Quant 28.8 H, Free L[place] LC, Quant 13.2, Free [place]/Lambda Ratio 2.18 H 03/17/21 13:30: Corrected WBC 6.1, Uncorrected WBC Count 6.1, RBC 3.56 L, Hgb 11.7 L, Hct 34.3, MCV 96.4, MCH 32.8, MCHC 34.0, RDW 13.7, Plt Count 227, MPV 10.2, Neut % (Auto) 40.5, Lymph % (Auto) 47.8, [place] % (Auto) 10.6, Eos % (Auto) 0.6, Baso % (Auto) 0.5, Neut # (Auto) 2.5, Lymph # (Auto) 2.9, [place] # (Auto) 0.6, Eos # (Auto) 0.0, Baso # (Auto) 0.0, Nucleated RBC % (auto) 0.2 Assessment and Plan (1) Multiple myeloma in remission kappa light chain multiple myeloma, refractory to Velcade dexamethasone and cyclophosphamide, could not tolerate Revlimid, progressed on Carfilzomib. -Ongoing brisk response to single agent Daratumumab. No overt adverse effects, the dizziness is not related to Daratumumab. -Dose held in 01/2020 and 02/2020 due to COVID-19 pandemics, K/L ratio is increasing in 03/03, resumed every 4 weeks cycle starting on 03/19/20. 03/24/2021: -after cycle 1 Darzalex Faspro she is profoundly fatigue, in retrospect, she hadkidney stone. -Switched back to infusional Daratumumab 02/17/21, tolerating better. -She had mild anemia, free light chain levels are trending upwards, level still low. Although disease progression can be a concern, she could have a recent infection. -Continue daratumumab, will repeat free light chain levels in 3 weeks, she will return in 4 weeks. -Continue Acyclovir 400mg bid for Herpes Zoster prophylaxis. (2) B12 deficiency anemia Antibodies for parietal cells and intrinsic factor were normal. -Switch to oral Vit B12 in 04/2019, repeat B12 level in 07/2019 was 900,506 in 11/02, continue oral vitamin B12. (3) 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 -Completed Pamidronate 60mg monthly for 2 years, switched to every 3 month, stopped after 04/2018 since she stayed in remission for total of 2 years. -Last dose was 04/19/2018 (4) Atrial fibrillation Plavix has been changed to Xarelto by Cardiology -Rate controlled. (5) Anemia Hgb normalized on 06/13/20, B12 level was adequately replaced. -Anemia recurred, mild, monitor for now. (6) Steroid-induced hyperglycemia (7) Transient left leg weakness (8) Hearing loss (9) HTN (hypertension) Qualifiers: Hypertension type: essential hypertension Qualified Code(s): I10 - Essential (primary) hypertension - Chemo Plan Goal of Treatment: Palliative - Time with Patient Time Spent with Patient (Follow Up Visit): 25 minutes Coordination of Care & Counseling Time: Greater than 50% of time spent with patient was for coordination of care (as documented) and [id number] counseling of patient and/or family. Dictated By: Margarito Buenrostro MD DD/ [id number] Signed By: <Electronically signed by Margarito Buenrostro MD> 03/24/21 1236 [facility] Work Phone: [phone] 342-431803-26-2021 Progress note Author Margarito Buenrostro [facility] February 06, 2021 10:35am Note Date/Time February 06, 2021 10: 32am [facility] [place] [address] Hem/Onc Follow Up Note - OP Signed Patient: Hailee Trivedi MR#: [id number] : 1940 Acct:[id number] Age/Sex: 80 / F Type: REG RCR Copies to: Curt Clark MD~ Subjective Date/Time of Service: Date of Service: 02/06/2021 Time of Service: 09:31 Chief Complaint: Patient is here for a one month follow up with labs for review. HPI: Hailee presented for routine follow up after 1 cycle of DARZALEX Faspro. She states she has been very weak and tired since her last treatment. She has no other concerns today. She continues on baby aspirin as directed. Chronically fatigued, stable. - Summary of Therapies Summary of Therapies: 1. Velcade/dexamethasone induction regimen with dexamethasone 20 mg started 07/08/2014, kappa light chain decreased to 833 and 33 from 7000 in October 2014. 2. Tried Revlimid in September 2014, discontinued 11/02/2014 due to suspicion that it may cause itching. 3. Velcade 1.3 mg/m sq weekly along with dexamethasone 6 mg p.o. weekly, light chain improved from 833 to 570 as of 04/18/2015, then increased again in May 2015. 4. Velcade induction regimen restarted with dexamethasone 20 mg p.o. weekly on 07/01 patient experienced extreme fatigue due to dehydration from hyperglycemia and diarrhea. 5. Velcade 1.3 mg with dexamethasone 6 mg and cyclophosphamide 300 mg IV [id number], developed grade 2 anemia, fatigue and grade 3 diarrhea. Cyclophosphamide was switched to p.o. 50 mg three weeks on, one week off on 09/26/2015, however, free kappa light chain went down to 1179 on 10/24/2015. 6. Carfilzomib 20 mg/m2 on days 1,2,8,9,15,16 of a 21 day cycle, started on 11/04/2015-02/24/2016. Discontinued due to disease progression. -Dose escalated to 27mg/m2 in cycle 2, on 12/17/2015. Dose reduced to 20mg/m2 on cycle 4 day 15 due to grade 2 fatigue. CURRENT THERAPY 1. Daratumumab 03/17/2016-. Total 39 cycles. -03/17/16-05/05/16, weekly. -05/19/16-08/25/16, biweekly. -09/22/16-, every 4 weeks. 09/21/2017 held due to dizziness, resumed 12/21/2017. Skip treatment on 12/13/18 per patient request. -07/2019-, every 6 week per patient request. -Dose held in 01/2020 and 02/2020 due to COVID-19 pandemics. -Resumed every 4 weeks cycle on 03/19/20. 2. Switched to DARZALEX Faspro 01/12/2021, profound fatigue after 1 cycle. -Switching back to infusional Daratumumab 02/17/21. 2. VitB12 injections, monthly, switched to oral in 04/2019. ROS Details: All systems reviewed & no additional complaints except as documented Subjective/ROS - Narrative: Subjective/ROS-narrative: Constitutional: Negative: No chills, fever, night sweats, positive: fatigue HEENT: Positive: sinus drainage, clear Cardiovascular: Negative: Chest pain, edema, palpitations Respiratory: Negative: Cough, shortness of breath, hemoptysis Gastrointestinal: Negative: pain, bloating, constipation, diarrhea, nausea, vomiting Genitourinary: Negative: Frequency, dysuria, history of CKD stage 4, recent lithotripsy with stone removed. Musculoskeletal positive low back pain x2 days resolved, ambulatory with cane Neurologic: Negative: Dizziness, headache, numbness, tingling positive: forgetful at times Psychiatric: Negative: Anxiety, depression, sleep changes Hematologic/lymphatic: Negative: Bleeding, bruising, enlarged lymph nodes Endocrine: Negative: Excessive sweating, flushing, intolerance to cold, intolerance to heat, weight gain/loss Allergic/immunology: Negative: Pruritus, rash PMFSH - Medical History Medical History: Medical History (Last Reviewed 04/16/20 @ 09:36 by Carol Younger APRN) Afib CKD (chronic kidney disease) CVA (cerebral vascular accident) Diabetes HTN (hypertension) Hyperlipidemia Kidney stone Multiple myeloma - Surgical History Surgical History: Surgical History (Last Reviewed 04/16/20 @ 09:37 by Carol Younger APRN) History of cholecystectomy History of hemorrhoidectomy History of hysterectomy History of renal stent Hx of lithotripsy - Social History Smoking Status: Never smoker Substance Use Type: None Home Medications & Allergies Allergies lenalidomide [From Revlimid] Allergy (Mild, Verified 02/06/21 09:12) Rash oxybutynin Allergy (Verified 02/06/21 09:12) Rash pregabalin [From Lyrica] Allergy (Verified 02/06/21 09:12) double vision Home Medications Fish Oil 1,200 cap PO BID 07/14/17 [History Confirmed 02/06/21] insulin lispro [Humalog KwikPen Insulin] See Protocol SUB-Q ACHS PRN 07/14/17 [History Confirmed 02/06/21] sodium bicarbonate 650 mg PO BID 07/14/17 [History Confirmed 02/06/21] Humulin N NPH Insulin KwikPen 12 unit SUBCUT QPM 08/10/18 [History Confirmed 02/06/21] cholecalciferol (vitamin D3) [Vitamin D3] 1,000 unit PO DAILY 08/10/18 [History Confirmed 02/06/21] atorvastatin 40 mg PO DAILY 08/23/18 [History Confirmed 02/06/21] amlodipine 5 mg PO DAILY 09/20/18 [History Confirmed 02/06/21] aspirin 81 mg PO DAILY 10/18/18 [History Confirmed 02/06/21] cyanocobalamin (vitamin B-12) 1,000 mcg PO DAILY 05/02/19 [History Confirmed 02/06/21] acyclovir 400 mg PO BID 11/07/19 [History Confirmed 02/06/21] carvedilol [Coreg] 12.5 mg PO BID 30 Days #60 tab 11/07/19 [Rx Confirmed 02/06/21] rivaroxaban [Xarelto] 15 mg PO DAILY 30 Days #30 tab 11/07/19 [Rx Confirmed 02/06/21] cephalexin 250 mg PO DAILY 01/08/20 [History Confirmed 02/06/21] cyclobenzaprine 10 mg PO TID PRN #15 tab 11/04/20 [Rx Confirmed 02/06/21] prednisone 20 mg PO DAILY #6 tab 01/02/21 [Rx Confirmed 02/06/21] Objective - Height/Weight Height/Weight: Height 5 ft 6 in Weight 84.051 kg BSA for Today's Weight 2.00 - Vital Signs Vital Signs: 02/06/21 09:13 Temperature 97.4 F L Pulse Rate [Left Brachial] 68 Respiratory Rate 20 Blood Pressure [Right Arm] 126/58 L 02 Sat by Pulse Oximetry 99 - Pain Generalized Back Pain Intensity: 0 Left Arm Pain Intensity: 0 Generalized Teeth Pain Intensity: 0 Bilateral Shoulder Pain Intensity: 1 Right Shoulder Pain Intensity: 2 - Emotional Needs Assessment Emotional Needs Assessment: Emotional Needs Identified? No Physical Exam Narrative: GENERAL APPEARANCE: In no acute distress. HEENT: No jaundice or lymphadenopathy. LUNGS: Breathing comfortably on room air. CTAB. EXTREMITIES: No edema. NEUROLOGIC: Grossly intact. - ECOG Performance Status ECOG Score: 1 Results - Labs Labs: Diagram of Most Recent CBC and CMP 02/06/21 08:55 02/06/21 08:55 Labs - Last 7 Days 02/06/21 08:55: PHA Creatinine Clear 20.76, Sodium 139, Potassium 4.0, Chloride 107, Carbon Dioxide 20.3 L, BUN 24 H, Creatinine 2.44 H, Est GFR ( Amer) 23, Est GFR (Non-Af Amer) 19, Glucose 170 H, Calcium 8.5, Total Bilirubin 0.7, AST 15, ALT 14, Alkaline Phosphatase 95 H, Total Protein 5.8 L, Albumin 3.3, Globulin 2.5, Albumin/Globulin Ratio 1.3 02/06/21 08:55: Corrected WBC 7.3, Uncorrected WBC Count 7.3, RBC 3.83, Hgb 12.4, Hct 37.1, MCV 96.8, MCH 32.5, MCHC 33.6, RDW 13.5, Plt Count 211, MPV 9.7,Neut % (Auto) 64.7, Lymph % (Auto) 27.2, [place] % (Auto) 6.2, Eos % (Auto) 1.5, Baso % (Auto) 0.4, Neut # (Auto) 4.7, Lymph # (Auto) 2.0, [place] # (Auto) 0.5, Eos# (Auto) 0.1, Baso # (Auto) 0.0, Nucleated RBC % (auto) 0.1 Assessment and Plan (1) Multiple myeloma in remission kappa light chain multiple myeloma, refractory to Velcade dexamethasone and cyclophosphamide, could not tolerate Revlimid, progressed on Carfilzomib. -Ongoing brisk response to single agent Daratumumab. No overt adverse effects, the dizziness is not related to Daratumumab. -Dose held in 01/2020 and 02/2020 due to COVID-19 pandemics, K/L ratio is increasing in 03/03, resumed every 4 weeks cycle starting on 03/19/20. 02/06/2021: 1 month follow-up after cycle 1 Darzalex Faspro she is profoundly fatigue without other causes. We will delay next treatment for another week -Switching back to infusional Daratumumab 02/17/21, order placed. -I will see her 6 weeks, on day of daratumumab treatment. -Continue Acyclovir 400mg bid for Herpes Zoster prophylaxis. She will call if refills are needed. -She knows to call if questions or concerns arise. (2) B12 deficiency anemia Antibodies for parietal cells and intrinsic factor were normal. -Switch to oral Vit B12 in 04/2019, repeat B12 level in 07/2019 was 900,506 in 11/02, continue oral vitamin B12. (3) 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 (4) Atrial fibrillation (5) Shoulder pain (6) Anemia (7) Steroid-induced hyperglycemia (8) Transient left leg weakness (9) Hearing loss (10) HTN (hypertension) Qualifiers: Hypertension type: essential hypertension Qualified Code(s): I10 - Essential (primary) hypertension - Chemo Plan Goal of Treatment: Palliative - Time with Patient Time Spent with Patient (Follow Up Visit): 25 minutes Coordination of Care & Counseling Time: Greater than 50% of time spent with patient was for coordination of care (as documented) and [id number] counseling of patient and/or family. Dictated By: Margarito Buenrostro MD DD/ 30 Signed By: <Electronically signed by Margarito Buenrostro MD> 02/06/21 1035 [facility] Work Phone: [phone]) 612-467402-25-2021 Progress note Author Margarito Buenrostro [facility] January 08, 2021 10:17am Note Date/Time January 08, 2021 10:14am [facility] [place] [address] Hem/Onc Follow Up Note - OP Signed Patient: Hailee Trivedi MR#: [id number] : 1940 Acct:[id number] Age/Sex: 80 / F Type: REG RCR Copies to: Curt Clark MD~ Subjective Date/Time of Service: Date of Service: 01/08/2021 Time of Service: 10:13 Chief Complaint: Patient is here for a 5 week follow up, with labs for review. No concerns voiced. HPI: Hailee presented for routine follow up prior after cycle 39 Daratumumab, to startcycle 1 DARZALEX Faspro for her history of multiple myeloma. She continues on baby aspirin as directed. Chronically fatigued, stable. - Summary of Therapies Summary of Therapies: 1. Velcade/dexamethasone induction regimen with dexamethasone 20 mg started 07/08/2014, kappa light chain decreased to 833 and 33 from 7000 in October 2014. 2. Tried Revlimid in September 2014, discontinued 11/02/2014 due to suspicion that it may cause itching. 3. Velcade 1.3 mg/m sq weekly along with dexamethasone 6 mg p.o. weekly, light chain improved from 833 to 570 as of 04/18/2015, then increased again in May 2015. 4. Velcade induction regimen restarted with dexamethasone 20 mg p.o. weekly on 07/01 patient experienced extreme fatigue due to dehydration from hyperglycemia and diarrhea. 5. Velcade 1.3 mg with dexamethasone 6 mg and cyclophosphamide 300 mg IV [id number]/15/2015, developed grade 2 anemia, fatigue and grade 3 diarrhea. Cyclophosphamide was switched to p.o. 50 mg three weeks on, one week off on 09/26/2015, however, free kappa light chain went down to 1179 on 10/24/2015. 6. Carfilzomib 20 mg/m2 on days 1,2,8,9,15,16 of a 21 day cycle, started on 11/04/2015-02/24/2016. Discontinued due to disease progression. -Dose escalated to 27mg/m2 in cycle 2, on 12/17/2015. Dose reduced to 20mg/m2 on cycle 4 day 15 due to grade 2 fatigue. CURRENT THERAPY 1. Daratumumab 03/17/2016-. Total 39 cycles. -03/17/16-05/05/16, weekly. -05/19/16-08/25/16, biweekly. -09/22/16-, every 4 weeks. 09/21/2017 held due to dizziness, resumed 12/21/2017. Skip treatment on 12/13/18 per patient request. -07/2019-, every 6 week per patient request. -Dose held in 01/2020 and 02/2020 due to COVID-19 pandemics. -Resumed every 4 weeks cycle on 03/19/20. 2. Switched to DARZALEX Faspro 01/12/2021. 2. VitB12 injections, monthly, switched to oral in 04/2019. ROS Details: All systems reviewed & no additional complaints except as documented Subjective/ROS - Narrative: Subjective/ROS-narrative: Constitutional: Negative: No chills, fever, night sweats, positive: fatigue HEENT: Positive: sinus drainage, clear Cardiovascular: Negative: Chest pain, edema, palpitations Respiratory: Negative: Cough, shortness of breath, hemoptysis Gastrointestinal: Negative: pain, bloating, constipation, diarrhea, nausea, vomiting Genitourinary: Negative: Frequency, dysuria, history of CKD stage 4, recent lithotripsy with stone removed. Musculoskeletal positive low back pain x2 days resolved, ambulatory with cane Neurologic: Negative: Dizziness, headache, numbness, tingling positive: forgetful at times Psychiatric: Negative: Anxiety, depression, sleep changes Hematologic/lymphatic: Negative: Bleeding, bruising, enlarged lymph nodes Endocrine: Negative: Excessive sweating, flushing, intolerance to cold, intolerance to heat, weight gain/loss Allergic/immunology: Negative: Pruritus, rash PMFSH - Medical History Medical History: Medical History (Last Reviewed 04/16/20 @ 09:36 by Carol Younger APRN) Afib CKD (chronic kidney disease) CVA (cerebral vascular accident) Diabetes HTN (hypertension) Hyperlipidemia Kidney stone Multiple myeloma - Surgical History Surgical History: Surgical History (Last Reviewed 04/16/20 @ 09:37 by Carol Younger APRN) History of cholecystectomy History of hemorrhoidectomy History of hysterectomy History of renal stent Hx of lithotripsy - Social History Smoking Status: Never smoker Substance Use Type: None Home Medications & Allergies Allergies lenalidomide [From Revlimid] Allergy (Mild, Verified 11/04/20 11:54) Rash oxybutynin Allergy (Verified 11/04/20 11:54) Rash pregabalin [From Lyrica] Allergy (Verified 11/04/20 11:54) double vision Home Medications Fish Oil 1,200 cap PO BID 07/14/17 [History Confirmed 01/08/21] insulin lispro [Humalog KwikPen Insulin] See Protocol SUB-Q ACHS PRN 07/14/17 [History Confirmed 01/08/21] sodium bicarbonate 650 mg PO BID 07/14/17 [History Confirmed 01/08/21] Humulin N NPH Insulin KwikPen 12 unit SUBCUT QPM 08/10/18 [History Confirmed 01/08/21] cholecalciferol (vitamin D3) [Vitamin D3] 1,000 unit PO DAILY 08/10/18 [History Confirmed 01/08/21] atorvastatin 40 mg PO DAILY 08/23/18 [History Confirmed 01/08/21] amlodipine 5 mg PO DAILY 09/20/18 [History Confirmed 01/08/21] aspirin 81 mg PO DAILY 10/18/18 [History Confirmed 01/08/21] cyanocobalamin (vitamin B-12) 1,000 mcg PO DAILY 05/02/19 [History Confirmed 01/08/21] acyclovir 400 mg PO BID 11/07/19 [History Confirmed 01/08/21] carvedilol [Coreg] 12.5 mg PO BID 30 Days #60 tab 11/07/19 [Rx Confirmed 01/08/21] rivaroxaban [Xarelto] 15 mg PO DAILY 30 Days #30 tab 11/07/19 [Rx Confirmed 01/08/21] cephalexin 250 mg PO DAILY 01/08/20 [History Confirmed 01/08/21] cyclobenzaprine 10 mg PO TID PRN #15 tab 11/04/20 [Rx Confirmed 01/08/21] prednisone 20 mg PO DAILY #6 tab 01/02/21 [Rx Confirmed 01/08/21] Objective - Height/Weight Height/Weight: Height 5 ft 6 in Weight 84.368 kg BSA for Today's Weight 2.00 - Vital Signs Vital Signs: 01/08/21 09:52 Temperature 97.3 F L Pulse Rate [Left Brachial] 77 Respiratory Rate 20 Blood Pressure [Right Arm] 141/74 H 02 Sat by Pulse Oximetry 98 - Pain Generalized Back Pain Intensity: 0 Left Arm Pain Intensity: 0 Generalized Teeth Pain Intensity: 0 Bilateral Shoulder Pain Intensity: 1 Right Shoulder Pain Intensity: 2 - Emotional Needs Assessment Emotional Needs Assessment: Emotional Needs Identified? No Physical Exam Narrative: GENERAL APPEARANCE: In no acute distress. HEENT: No jaundice or lymphadenopathy. LUNGS: Breathing comfortably on room air. EXTREMITIES: No edema. NEUROLOGIC: Grossly intact. - ECOG Performance Status ECOG Score: 1 Results - Labs Labs: Diagram of Most Recent CBC and CMP 12/23/20 09:18 05/13/20 10:09 Assessment and Plan (1) Multiple myeloma in remission kappa light chain multiple myeloma, refractory to Velcade dexamethasone and cyclophosphamide, could not tolerate Revlimid, progressed on Carfilzomib. -Ongoing brisk response to single agent Daratumumab. No overt adverse effects, the dizziness is not related to Daratumumab. -Dose held in 01/2020 and 02/2020 due to COVID-19 pandemics, K/L ratio is increasing in 03/03, resumed every 4 weeks cycle starting on 03/19/20. 01/08/2021: 1 month follow-up after cycle 39 single agent Daratumumab. -She is to start Darzalex Faspro next Tuesday. Rationale/risks/benefit/alternatives of Darzalex Faspro and anticipated side effects discussed in details, including neutropenia, increased risk of infection, allergic reactions, s he verbalized good understanding and signed informed written consent, I plan to see in 4 weeks, repeat [place]/lambda ratio in6-8 weeks. -Continue Acyclovir 400mg bid for Herpes Zoster prophylaxis. She will call if refills are needed. -She knows to call if questions or concerns arise. (2) B12 deficiency anemia (3) 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 (4) Atrial fibrillation (5) Shoulder pain (6) Anemia (7) Steroid-induced hyperglycemia (8) Transient left leg weakness (9) Hearing loss (10) HTN (hypertension) Qualifiers: Hypertension type: essential hypertension Qualified Code(s): I10 - Essential (primary) hypertension - Chemo Plan Goal of Treatment: Palliative - Time with Patient Time Spent with Patient (Follow Up Visit): 25 minutes Coordination of Care & Counseling Time: Greater than 50% of time spent with patient was for coordination of care (as documented) and [id number] counseling of patient and/or family. Dictated By: Margarito Buenrostro MD DD/ [id number] Signed By: <Electronically signed by Margarito Buenrostro MD> 01/08/[address] [place] [address] Work Phone: [phone]) 456-872001-19-2021 Progress note Author Margarito Buenrostro [facility] December 02, 2020 12:29pm Note Date/Time December 02, 2020 1 2:27pm [facility] [place] [address] Hem/Onc Follow Up Note - OP Signed Patient: Hailee Trivedi MR#: [id number] : 1940 Acct:[id number] Age/Sex: 80 / F Type: REG RCR Copies to: Curt Clakr MD~ Subjective Date/Time of Service: Date of Service: 12/02/2020 Time of Service: 09:26 Chief Complaint: Patient is here for a 1 month follow up for multiple myeloma prior to treatment today. She voices no concerns. HPI: Hailee presented for routine follow up prior to cycle 39 Daratumumab for her history of multiple myeloma. She continues on baby aspirin as directed. Chronically fatigued, stable. - Summary of Therapies Summary of Therapies: 1. Velcade/dexamethasone induction regimen with dexamethasone 20 mg started 07/08/2014, kappa light chain decreased to 833 and 33 from 7000 in October 2014. 2. Tried Revlimid in September 2014, discontinued 11/02/2014 due to suspicion that it may cause itching. 3. Velcade 1.3 mg/m sq weekly along with dexamethasone 6 mg p.o. weekly, light chain improved from 833 to 570 as of 04/18/2015, then increased again in May 2015. 4. Velcade induction regimen restarted with dexamethasone 20 mg p.o. weekly on 07/01 patient experienced extreme fatigue due to dehydration from hyperglycemia and diarrhea. 5. Velcade 1.3 mg with dexamethasone 6 mg and cyclophosphamide 300 mg IV [id number]/2015, developed grade 2 anemia, fatigue and grade 3 diarrhea. Cyclophosphamide was switched to p.o. 50 mg three weeks on, one week off on 09/26/2015, however, free kappa light chain went down to 1179 on 10/24/2015. 6. Carfilzomib 20 mg/m2 on days 1,2,8,9,15,16 of a 21 day cycle, started on 11/04/2015-02/24/2016. Discontinued due to disease progression. -Dose escalated to 27mg/m2 in cycle 2, on 12/17/2015. Dose reduced to 20mg/m2 on cycle 4 day 15 due to grade 2 fatigue. CURRENT THERAPY 1. Daratumumab 03/17/2016-. -03/17/16-05/05/16, weekly. -05/19/16-08/25/16, biweekly. -09/22/16-, every 4 weeks. 09/21/2017 held due to dizziness, resumed 12/21/2017. Skip treatment on 12/13/18 per patient request. -07/2019-, every 6 week per patient request. -Dose held in 01/2020 and 02/2020 due to COVID-19 pandemics. -Resumed every 4 weeks cycle on 03/19/20. 2. VitB12 injections, monthly, switched to oral in 04/2019. ROS Details: All systems reviewed & no additional complaints except as documented Subjective/ROS - Narrative: Subjective/ROS-narrative: Constitutional: Negative: No chills, fever, night sweats, positive: fatigue HEENT: Positive: sinus drainage, clear Cardiovascular: Negative: Chest pain, edema, palpitations Respiratory: Negative: Cough, shortness of breath, hemoptysis Gastrointestinal: Negative: pain, bloating, constipation, diarrhea, nausea, vomiting Genitourinary: Negative: Frequency, dysuria, history of CKD stage 4, recent lithotripsy with stone removed. Musculoskeletal positive low back pain x2 days resolved, ambulatory with cane Neurologic: Negative: Dizziness, headache, numbness, tingling positive: forgetful at times Psychiatric: Negative: Anxiety, depression, sleep changes Hematologic/lymphatic: Negative: Bleeding, bruising, enlarged lymph nodes Endocrine: Negative: Excessive sweating, flushing, intolerance to cold, intolerance to heat, weight gain/loss Allergic/immunology: Negative: Pruritus, rash PMFSH - Medical History Medical History: Medical History (Last Reviewed 04/16/20 @ 09:36 by Carol Younger APRN) Afib CKD (chronic kidney disease) CVA (cerebral vascular accident) Diabetes HTN (hypertension) Hyperlipidemia Kidney stone Multiple myeloma - Surgical History Surgical History: Surgical History (Last Reviewed 04/16/20 @ 09:37 by Carol Younger APRN) History of cholecystectomy History of hemorrhoidectomy History of hysterectomy History of renal stent Hx of lithotripsy - Social History Smoking Status: Never smoker Substance Use Type: None Home Medications & Allergies Allergies lenalidomide [From Revlimid] Allergy (Mild, Verified 11/04/20 11:54) Rash oxybutynin Allergy (Verified 11/04/20 11:54) Rash pregabalin [From Lyrica] Allergy (Verified 11/04/20 11:54) double vision Home Medications Fish Oil 1,200 cap PO BID 07/14/17 [History Confirmed 12/02/20] insulin lispro [Humalog KwikPen Insulin] See Protocol SUB-Q ACHS PRN 07/14/17 [History Confirmed 12/02/20] sodium bicarbonate 650 mg PO BID 07/14/17 [History Confirmed 12/02/20] Humulin N NPH Insulin KwikPen 12 unit SUBCUT QPM 08/10/18 [History Confirmed 12/02/20] cholecalciferol (vitamin D3) [Vitamin D3] 1,000 unit PO DAILY 08/10/18 [History Confirmed 12/02/20] atorvastatin 40 mg PO DAILY 08/23/18 [History Confirmed 12/02/20] amlodipine 5 mg PO DAILY 09/20/18 [History Confirmed 12/02/20] aspirin 81 mg PO DAILY 10/18/18 [History Confirmed 12/02/20] cyanocobalamin (vitamin B-12) 1,000 mcg PO DAILY 05/02/19 [History Confirmed 12/02/20] acyclovir 400 mg PO BID 11/07/19 [History Confirmed 12/02/20] carvedilol [Coreg] 12.5 mg PO BID 30 Days #60 tab 11/07/19 [Rx Confirmed 12/02/20] rivaroxaban [Xarelto] 15 mg PO DAILY 30 Days #30 tab 11/07/19 [Rx Confirmed 12/02/20] cephalexin 250 mg PO DAILY 01/08/20 [History Confirmed 12/02/20] cyclobenzaprine 10 mg PO TID PRN #15 tab 11/04/20 [Rx Confirmed 12/02/20] Objective - Height/Weight Height/Weight: Height 5 ft 6 in Weight 85.6 kg BSA for Today's Weight 2.00 - Vital Signs Vital Signs: 12/02/20 08:42 Temperature 97.4 F L Pulse Rate [Left Brachial] 77 Respiratory Rate 20 Blood Pressure [Right Arm] 132/61 02 Sat by Pulse Oximetry 98 - Pain Generalized Back Pain Intensity: 0 Left Arm Pain Intensity: 0 Generalized Teeth Pain Intensity: 0 Bilateral Shoulder Pain Intensity: 1 Right Shoulder Pain Intensity: 2 - Emotional Needs Assessment Emotional Needs Assessment: Emotional Needs Identified? Yes Emotional Needs Identified? No Distress Screening Total 0 Support System Child/Children,Family,Friend Expressed/Other Feelings pt states she is feeling good Comment Physical Exam Narrative: GENERAL APPEARANCE: In no acute distress. HEENT: No jaundice or lymphadenopathy. LUNGS: Clear to auscultation bilaterally, no rales, rhonchi, or crackles. CARDIOVASCULAR: S1 and S2, regular rate and rhythm, no murmurs, gallops, rubs. ABDOMEN: Soft, nontender. EXTREMITIES: No edema. NEUROLOGIC: Grossly intact. Musculoskeletal: Tenderness around bilateral should blades. - ECOG Performance Status ECOG Score: 1 Results - Labs Labs: Diagram of Most Recent CBC and CMP 10/28/20 11:11 05/13/20 10:09 Assessment and Plan (1) Multiple myeloma in remission kappa light chain multiple myeloma, refractory to Velcade dexamethasone and cyclophosphamide, could not tolerate Revlimid, progressed on Carfilzomib. -Ongoing brisk response to single agent Daratumumab. No overt adverse effects, the dizziness is not related to Daratumumab. -Dose held in 01/2020 and 02/2020 due to COVID-19 pandemics, K/L ratio is increasing in 03/03, resumed every 4 weeks cycle starting on 03/19/20. : 1 month follow-up prior to cycle 39 single agent Daratumumab. -Doing well, proceed to treatment, see in 4 weeks. Discussed Darzalex Faspro, she expressed interest, plan to start in 4 weeks, repeat [place]/lambda ratio in 6weeks. -Continue Acyclovir 400mg bid for Herpes Zoster prophylaxis. She will call if refills are needed. -She knows to call if questions or concerns arise. (2) B12 deficiency anemia Antibodies for parietal cells and intrinsic factor were normal. -Switch to oral Vit B12 in 04/2019, repeat B12 level in 07/2019 was 900,506 in 11/02, continue oral vitamin B12. (3) 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 -Completed Pamidronate 60mg monthly for 2 years, switched to every 3 month, stopped after 04/2018 since she stayed in remission for total of 2 years. -Last dose was 04/19/2018 (4) Atrial fibrillation Plavix has been changed to Xarelto by Cardiology -Rate controlled. (5) Shoulder pain (6) Anemia (7) Steroid-induced hyperglycemia (8) Transient left leg weakness (9) Hearing loss (10) HTN (hypertension) Qualifiers: Hypertension type: essential hypertension Qualified Code(s): I10 - Essential (primary) hypertension - Chemo Plan Goal of Treatment: Palliative - Time with Patient Total Time Spent with Patient: 30 min Coordination of Care & Counseling Time: Greater than 50% of time spent with patient was for coordination of care (as documented) and [id number] counseling of patient and/or family. Dictated By: Margarito Buenrostro MD DD/ 25 Signed By: <Electronically signed by Margarito Buenrostro MD> 12/02/20 12[address] [facility] Work Phone: [phone] Progress note Author Margarito Buenrostro [facility] November 04, 2020 1:30pm Note Date/Time November 04, 2020 1:22pm [facility] at [address] [address] Hem/Onc Follow Up Note - OP Signed Patient: Hailee Trivedi MR#: [id number] : 1940 Acct:[id number] Age/Sex: 80 / F Type: REG RCR Copies to: Curt Clark MD~ Subjective Date/Time of Service: Date of Service: 11/04/2020 Time of Service: 13:17 Chief Complaint: Patient is here for a 1 month follow up for multiple myeloma. She has treatment today. HPI: Hailee presented for routine follow up prior to cycle 38 Daratumumab for her history of multiple myeloma. She continues on baby aspirin as directed. Chronically fatigued, stable. She reports bilateral should pain, worst last . - Summary of Therapies Summary of Therapies: 1. Velcade/dexamethasone induction regimen with dexamethasone 20 mg started 07/08/2014, kappa light chain decreased to 833 and 33 from 7000 in October 2014. 2. Tried Revlimid in September 2014, discontinued 11/02/2014 due to suspicion that it may cause itching. 3. Velcade 1.3 mg/m sq weekly along with dexamethasone 6 mg p.o. weekly, light chain improved from 833 to 570 as of 04/18/2015, then increased again in May 2015. 4. Velcade induction regimen restarted with dexamethasone 20 mg p.o. weekly on 07/01 patient experienced extreme fatigue due to dehydration from hyperglycemia and diarrhea. 5. Velcade 1.3 mg with dexamethasone 6 mg and cyclophosphamide 300 mg IV [id number]/15/2015, developed grade 2 anemia, fatigue and grade 3 diarrhea. Cyclophosphamide was switched to p.o. 50 mg three weeks on, one week off on 09/26/2015, however, free kappa light chain went down to 1179 on 10/24/2015. 6. Carfilzomib 20 mg/m2 on days 1,2,8,9,15,16 of a 21 day cycle, started on 11/04/2015-02/24/2016. Discontinued due to disease progression. -Dose escalated to 27mg/m2 in cycle 2, on 12/17/2015. Dose reduced to 20mg/m2 on cycle 4 day 15 due to grade 2 fatigue. CURRENT THERAPY 1. Daratumumab 03/17/2016-. -03/17/16-05/05/16, weekly. -05/19/16-08/25/16, biweekly. -09/22/16-, every 4 weeks. 09/21/2017 held due to dizziness, resumed 12/21/2017. Skip treatment on 12/13/18 per patient request. -07/2019-, every 6 week per patient request. -Dose held in 01/2020 and 02/2020 due to COVID-19 pandemics. -Resumed every 4 weeks cycle on 03/19/20. 2. VitB12 injections, monthly, switched to oral in 04/2019. ROS Details: All systems reviewed & no additional complaints except as documented Subjective/ROS - Narrative: Subjective/ROS-narrative: Constitutional: Negative: No chills, fever, night sweats, positive: fatigue HEENT: Positive: sinus drainage, clear Cardiovascular: Negative: Chest pain, edema, palpitations Respiratory: Negative: Cough, shortness of breath, hemoptysis Gastrointestinal: Negative: pain, bloating, constipation, diarrhea, nausea, vomiting Genitourinary: Negative: Frequency, dysuria, history of CKD stage 4, recent lithotripsy with stone removed. Musculoskeletal positive low back pain x2 days resolved, ambulatory with cane Neurologic: Negative: Dizziness, headache, numbness, tingling positive: forgetful at times Psychiatric: Negative: Anxiety, depression, sleep changes Hematologic/lymphatic: Negative: Bleeding, bruising, enlarged lymph nodes Endocrine: Negative: Excessive sweating, flushing, intolerance to cold, intolerance to heat, weight gain/loss Allergic/immunology: Negative: Pruritus, rash PMFSH - Medical History Medical History: Medical History (Last Reviewed 04/16/20 @ 09:36 by Carol Younger APRN) Afib CKD (chronic kidney disease) CVA (cerebral vascular accident) Diabetes HTN (hypertension) Hyperlipidemia Kidney stone Multiple myeloma - Surgical History Surgical History: Surgical History (Last Reviewed 04/16/20 @ 09:37 by Carol Younger APRN) History of cholecystectomy History of hemorrhoidectomy History of hysterectomy History of renal stent Hx of lithotripsy - Social History Smoking Status: Never smoker Substance Use Type: None Home Medications & Allergies Allergies lenalidomide [From Revlimid] Allergy (Mild, Verified 12/22/20 11:54) Rash oxybutynin Allergy (Verified 11/04/20 11:54) Rash pregabalin [From Lyrica] Allergy (Verified 11/04/20 11:54) double vision Home Medications Fish Oil 1,200 cap PO BID 07/14/17 [History Confirmed 11/04/20] insulin lispro [Humalog KwikPen Insulin] See Protocol SUB-Q ACHS PRN 07/14/17 [History Confirmed 11/04/20] sodium bicarbonate 650 mg PO BID 07/14/17 [History Confirmed 11/04/20] Humulin N NPH Insulin KwikPen 12 unit SUBCUT QPM 08/10/18 [History Confirmed 11/04/20] cholecalciferol (vitamin D3) [Vitamin D3] 1,000 unit PO DAILY 08/10/18 [History Confirmed 11/04/20] atorvastatin 40 mg PO DAILY 08/23/18 [History Confirmed 11/04/20] amlodipine 5 mg PO DAILY 09/20/18 [History Confirmed 11/04/20] aspirin 81 mg PO DAILY 10/18/18 [History Confirmed 11/04/20] cyanocobalamin (vitamin B-12) 1,000 mcg PO DAILY 05/02/19 [History Confirmed 11/04/20] acyclovir 400 mg PO BID 11/07/19 [History Confirmed 11/04/20] carvedilol [Coreg] 12.5 mg PO BID 30 Days #60 tab 11/07/19 [Rx Confirmed 11/04/20] rivaroxaban [Xarelto] 15 mg PO DAILY 30 Days #30 tab 11/07/19 [Rx Confirmed 11/04/20] cephalexin 250 mg PO DAILY 01/08/20 [History Confirmed 11/04/20] cyclobenzaprine 10 mg PO TID PRN #15 tab 11/04/20 [Rx] Objective - Height/Weight Height/Weight: Height 5 ft 6 in Weight 85.9 kg BSA for Today's Weight 2.00 - Vital Signs Vital Signs: 11/04/20 11:55 Temperature 96.8 F L Pulse Rate [Left Brachial] 69 Respiratory Rate 20 Blood Pressure [Right Arm] 158/63 H 02 Sat by Pulse Oximetry 97 - Pain Generalized Back Pain Intensity: 0 Left Arm Pain Intensity: 0 Generalized Teeth Pain Intensity: 0 Bilateral Shoulder Pain Intensity: 1 Right Shoulder Pain Intensity: 2 - Emotional Needs Assessment Emotional Needs Assessment: Emotional Needs Identified? No Distress Screening Total 0 Expressed/Other Feelings patient says she is feeling good today Comment Physical Exam Narrative: GENERAL APPEARANCE: In no acute distress. HEENT: No jaundice or lymphadenopathy. LUNGS: Clear to auscultation bilaterally, no rales, rhonchi, or crackles. CARDIOVASCULAR: S1 and S2, regular rate and rhythm, no murmurs, gallops, rubs. ABDOMEN: Soft, nontender. EXTREMITIES: No edema. NEUROLOGIC: Grossly intact. Musculoskeletal: Tenderness around bilateral should blades. - ECOG Performance Status ECOG Score: 1 Results - Labs Labs: Diagram of Most Recent CBC and CMP 10/28/20 11:11 05/13/20 10:09 Labs - Last 7 Days 10/28/20 11:11: Free [place] LC, Quant , Free Lambda LC, Quant , Free [place]/LambdaRatio Order [place] Free K+L Assessment and Plan (1) Multiple myeloma in remission kappa light chain multiple myeloma, refractory to Velcade dexamethasone and cyclophosphamide, could not tolerate Revlimid, progressed on Carfilzomib. -Ongoing brisk response to single agent Daratumumab. No overt adverse effects, the dizziness is not related to Daratumumab. -Dose held in 01/2020 and 02/2020 due to COVID-19 pandemics, K/L ratio is increasing in 03/03, resumed every 4 weeks cycle starting on 03/19/20. 11/04/2020: 1 month follow-up prior to cycle 38 single agent Daratumumab. -Doing well, proceed to treatment, see in 4 weeks. Her [place]/lambda ratio was not drawn, will draw today. -Continue Acyclovir 400mg bid for Herpes Zoster prophylaxis. She will call if refills are needed. -She knows to call if questions or concerns arise. (2) Shoulder pain Bilateral, likely due to spasm. -Will give a short course of Flexeril prnx5 days, e-prescribed. (3) B12 deficiency anemia Antibodies for parietal cells and intrinsic factor were normal. -Switch to oral Vit B12 in 04/2019, repeat B12 level in 07/2019 was 900.,506 in 11/02, continue oral vitamin B12. 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 -Last dose was 04/19/2018 (5) Atrial fibrillation (6) Anemia (7) Steroid-induced hyperglycemia (8) Transient left leg weakness (9) Hearing loss (10) HTN (hypertension) Qualifiers: Hypertension type: essential hypertension Qualified Code(s): I10 - Essential (primary) hypertension - Chemo Plan Goal of Treatment: Palliative - Time with Patient Total Time Spent with Patient: 30 min Coordination of Care & Counseling Time: Greater than 50% of time spent with patient was for coordination of care (as documented) and [id number] counseling of patient and/or family. Dictated By: Margarito Buenrostro MD DD/ [id number] Signed By: <Electronically signed by Margarito Buenrostro MD> 11/04/20 1330 [facility] Work Phone: [phone] Progress note Author Margarito Buenrostro [facility] October 07, 2020 10:20am Note Date/Time October 07, 2020 10:18am [facility] [place] [address] Hem/Onc Follow Up Note - OP Signed Patient: Hailee Trivedi MR#: [id number] : 1940 Acct:[id number] Age/Sex: 80 / F Type: REG RCR Copies to: Curt Clark MD~ Subjective Date/Time of Service: Date of Service: 10/07/2020 Time of Service: 10:17 Chief Complaint: Follow up appt prior to treatment HPI: Hailee presented for routine follow up prior to cycle 37 Daratumumab for her history of multiple myeloma. She continues on baby aspirin as directed. Chronically fatigued, stable. She has no specific complaint today. - Summary of Therapies Summary of Therapies: 1. Velcade/dexamethasone induction regimen with dexamethasone 20 mg started 07/08/2014, kappa light chain decreased to 833 and 33 from 7000 in October 2014. 2. Tried Revlimid in September 2014, discontinued 11/02/2014 due to suspicion that it may cause itching. 3. Velcade 1.3 mg/m sq weekly along with dexamethasone 6 mg p.o. weekly, light chain improved from 833 to 570 as of 04/18/2015, then increased again in May 2015. 4. Velcade induction regimen restarted with dexamethasone 20 mg p.o. weekly on 07/01 patient experienced extreme fatigue due to dehydration from hyperglycemia and diarrhea. 5. Velcade 1.3 mg with dexamethasone 6 mg and cyclophosphamide 300 mg IV [id number]/15/2015, developed grade 2 anemia, fatigue and grade 3 diarrhea. Cyclophosphamide was switched to p.o. 50 mg three weeks on, one week off on 09/26/2015, however, free kappa light chain went down to 1179 on 10/24/2015. 6. Carfilzomib 20 mg/m2 on days 1,2,8,9,15,16 of a 21 day cycle, started on 11/04/2015-02/24/2016. Discontinued due to disease progression. -Dose escalated to 27mg/m2 in cycle 2, on 12/17/2015. Dose reduced to 20mg/m2 on cycle 4 day 15 due to grade 2 fatigue. CURRENT THERAPY 1. Daratumumab 03/17/2016-. -03/17/16-05/05/16, weekly. -05/19/16-08/25/16, biweekly. -09/22/16-, every 4 weeks. 09/21/2017 held due to dizziness, resumed 12/21/2017. Skip treatment on 12/13/18 per patient request. -07/2019-, every 6 week per patient request. -Dose held in 01/2020 and 02/2020 due to COVID-19 pandemics. -Resumed every 4 weeks cycle on 03/19/20. 2. VitB12 injections, monthly, switched to oral in 04/2019. ROS Details: All systems reviewed & no additional complaints except as documented Subjective/ROS - Narrative: Subjective/ROS-narrative: Constitutional: Negative: No chills, fever, night sweats, positive: fatigue HEENT: Positive: sinus drainage, clear Cardiovascular: Negative: Chest pain, edema, palpitations Respiratory: Negative: Cough, shortness of breath, hemoptysis Gastrointestinal: Negative: pain, bloating, constipation, diarrhea, nausea, vomiting Genitourinary: Negative: Frequency, dysuria, history of CKD stage 4, recent lithotripsy with stone removed. Musculoskeletal positive low back pain x2 days resolved, ambulatory with cane Neurologic: Negative: Dizziness, headache, numbness, tingling positive: forgetful at times Psychiatric: Negative: Anxiety, depression, sleep changes Hematologic/lymphatic: Negative: Bleeding, bruising, enlarged lymph nodes Endocrine: Negative: Excessive sweating, flushing, intolerance to cold, intolerance to heat, weight gain/loss Allergic/immunology: Negative: Pruritus, rash PMFSH - Medical History Medical History: Medical History (Last Reviewed 04/16/20 @ 09:36 by Carol Younger APRN) Afib CKD (chronic kidney disease) CVA (cerebral vascular accident) Diabetes HTN (hypertension) Hyperlipidemia Kidney stone Multiple myeloma - Surgical History Surgical History: Surgical History (Last Reviewed 04/16/20 @ 09:37 by Carol Younger APRN) History of cholecystectomy History of hemorrhoidectomy History of hysterectomy History of renal stent Hx of lithotripsy - Social History Smoking Status: Never smoker Substance Use Type: None Home Medications & Allergies Allergies lenalidomide [From Revlimid] Allergy (Mild, Verified 01/08/20 02:59) Rash oxybutynin Allergy (Verified 01/08/20 02:59) Rash pregabalin [From Lyrica] Allergy (Verified 01/08/20 02:59) double vision Home Medications Fish Oil 1,200 cap PO BID 07/14/17 [History Confirmed 10/07/20] insulin lispro [Humalog KwikPen Insulin] See Protocol SUB-Q ACHS PRN 07/14/17 [History Confirmed 10/07/20] sodium bicarbonate 650 mg PO BID 07/14/17 [History Confirmed 10/07/20] Humulin N NPH Insulin KwikPen 12 unit SUBCUT QPM 08/10/18 [History Confirmed 10/07/20] cholecalciferol (vitamin D3) [Vitamin D3] 1,000 unit PO DAILY 08/10/18 [History Confirmed 10/07/20] atorvastatin 40 mg PO DAILY 08/23/18 [History Confirmed 10/07/20] amlodipine 5 mg PO DAILY 09/20/18 [History Confirmed 10/07/20] aspirin 81 mg PO DAILY 10/18/18 [History Confirmed 10/07/20] cyanocobalamin (vitamin B-12) 1,000 mcg PO DAILY 05/02/19 [History Confirmed 10/07/20] acyclovir 400 mg PO BID 11/07/19 [History Confirmed 10/07/20] carvedilol [Coreg] 12.5 mg PO BID 30 Days #60 tab 11/07/19 [Rx Confirmed 10/07/20] rivaroxaban [Xarelto] 15 mg PO DAILY 30 Days #30 tab 11/07/19 [Rx Confirmed 10/07/20] cephalexin 250 mg PO DAILY 01/08/20 [History Confirmed 10/07/20] Objective - Height/Weight Height/Weight: Height 5 ft 6 in Weight 85.3 kg BSA for Today's Weight 1.99 - Vital Signs Vital Signs: 10/07/20 10:01 Pulse Rate [Left Brachial] 74 Respiratory Rate 20 Blood Pressure [Right Arm] 161/84 H 02 Sat by Pulse Oximetry 99 - Pain Generalized Back Pain Intensity: 0 Left Arm Pain Intensity: 0 Generalized Teeth Pain Intensity: 0 Bilateral Shoulder Pain Intensity: 0 - Emotional Needs Assessment Emotional Needs Assessment: Emotional Needs Identified? No Distress Screening Total 0 - ECOG Performance Status ECOG Score: 2 - mild fatigue ambulatory with walker Physical Exam Narrative: GENERAL APPEARANCE: In no acute distress. HEENT: No jaundice or lymphadenopathy. LUNGS: Clear to auscultation bilaterally, no rales, rhonchi, or crackles. CARDIOVASCULAR: S1 and S2, regular rate and rhythm, no murmurs, gallops, rubs. ABDOMEN: Soft, nontender. EXTREMITIES: No edema. NEUROLOGIC: Grossly intact. Results - Labs Labs: Diagram of Most Recent CBC and CMP 09/09/20 11:00 05/13/20 10:09 Assessment and Plan (1) Multiple myeloma in remission kappa light chain multiple myeloma, refractory to Velcade dexamethasone and cyclophosphamide, could not tolerate Revlimid, progressed on Carfilzomib. -Ongoing brisk response to single agent Daratumumab. No overt adverse effects, the dizziness is not related to Daratumumab. -Dose held in 01/2020 and 02/2020 due to COVID-19 pandemics, K/L ratio is increasing in 03/03, resumed every 4 weeks cycle starting on 03/19/20. 10/07/2020: 1 month follow-up prior to cycle 37 single agent Daratumumab. -Doing well, proceed to treatment, see in 4 weeks. Plan to repeat [place]/lambda ratio in 3 weeks. -Continue Acyclovir 400mg bid for Herpes Zoster prophylaxis. She will call if refills are needed. -She knows to call if questions or concerns arise. (2) B12 deficiency anemia Antibodies for parietal cells and intrinsic factor were normal. -Switch to oral Vit B12 in 04/2019, repeat B12 level in 07/2019 was 900., will update in 3 weeks. (3) 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 -Completed Pamidronate 60mg monthly for 2 years, switched to every 3 month, stopped after 04/2018 since she stayed in remission for total of 2 years. -Last dose was 04/19/2018 (4) Atrial fibrillation Plavix has been changed to Xarelto by Cardiology -Rate controlled. (5) Anemia (6) Steroid-induced hyperglycemia (7) Transient left leg weakness (8) Hearing loss (9) HTN (hypertension) Qualifiers: Hypertension type: essential hypertension Qualified Code(s): I10 - Essential (primary) hypertension - Chemo Plan Goal of Treatment: Palliative - Time with Patient Coordination of Care & Counseling Time: 20 min, greater than 50% of time spent with patient was for coordination of care(as documented) and [id number] counseling of patient and/or family. Dictated By: Margarito Buenrostro MD DD/ [id number] Signed By: <Electronically signed by Margarito Buenrostro MD> 10/07/20 1020 [facility] Work Phone: [phone] Progress note Author Margarito Buenrostro [facility] September 09, 2020 10:20am Note Date/Time September 09, 2020 1 0:18am [facility] at [place] [id number] Hem/Onc Follow Up Note - OP Signed Patient: Hailee Trivedi MR#: [id number] : 1940 Acct:[id number] Age/Sex: 80 / F Type: REG RCR Copies to: Curt Clark MD~ Subjective Date/Time of Service: Date of Service: 09/09/2020 Time of Service: 10:17 Chief Complaint: Patient here to follow up before treatment. Patient denies any concerns at this time. HPI: Hailee presented for routine follow up prior to cycle 36 Daratumumab for her history of multiple myeloma. She continues on baby aspirin as directed. Chronically fatigued, stable. She has no specific complaint today. - Summary of Therapies Summary of Therapies: 1. Velcade/dexamethasone induction regimen with dexamethasone 20 mg started 07/08/2014, kappa light chain decreased to 833 and 33 from 7000 in October 2014. 2. Tried Revlimid in September 2014, discontinued 11/02/2014 due to suspicion that it may cause itching. 3. Velcade 1.3 mg/m sq weekly along with dexamethasone 6 mg p.o. weekly, light chain improved from 833 to 570 as of 04/18/2015, then increased again in May 2015. 4. Velcade induction regimen restarted with dexamethasone 20 mg p.o. weekly on 07/01 patient experienced extreme fatigue due to dehydration from hyperglycemia and diarrhea. 5. Velcade 1.3 mg with dexamethasone 6 mg and cyclophosphamide 300 mg IV [id number]/2015, developed grade 2 anemia, fatigue and grade 3 diarrhea. Cyclophosphamide was switched to p.o. 50 mg three weeks on, one week off on 09/26/2015, however, free kappa light chain went down to 1179 on 10/24/2015. 6. Carfilzomib 20 mg/m2 on days 1,2,8,9,15,16 of a 21 day cycle, started on 11/04/2015-02/24/2016. Discontinued due to disease progression. -Dose escalated to 27mg/m2 in cycle 2, on 12/17/2015. Dose reduced to 20mg/m2 on cycle 4 day 15 due to grade 2 fatigue. CURRENT THERAPY 1. Daratumumab 03/17/2016-. -03/17/16-05/05/16, weekly. -05/19/16-08/25/16, biweekly. -09/22/16-, every 4 weeks. 09/21/2017 held due to dizziness, resumed 12/21/2017. Skip treatment on 12/13/18 per patient request. -07/2019-, every 6 week per patient request. -Dose held in 01/2020 and 02/2020 due to COVID-19 pandemics. -Resumed every 4 weeks cycle on 03/19/20. 2. VitB12 injections, monthly, switched to oral in 04/2019. ROS Details: All systems reviewed & no additional complaints except as documented Subjective/ROS - Narrative: Subjective/ROS-narrative: Constitutional: Negative: No chills, fever, night sweats, positive: fatigue HEENT: Positive: sinus drainage, clear Cardiovascular: Negative: Chest pain, edema, palpitations Respiratory: Negative: Cough, shortness of breath, hemoptysis Gastrointestinal: Negative: pain, bloating, constipation, diarrhea, nausea, vomiting Genitourinary: Negative: Frequency, dysuria, history of CKD stage 4, recent lithotripsy with stone removed. Musculoskeletal positive low back pain x2 days resolved, ambulatory with cane Neurologic: Negative: Dizziness, headache, numbness, tingling positive: forgetful at times Psychiatric: Negative: Anxiety, depression, sleep changes Hematologic/lymphatic: Negative: Bleeding, bruising, enlarged lymph nodes Endocrine: Negative: Excessive sweating, flushing, intolerance to cold, intolerance to heat, weight gain/loss Allergic/immunology: Negative: Pruritus, rash PMFSH - Medical History Medical History: Medical History (Last Reviewed 04/16/20 @ 09:36 by Carol Younger APRN) Afib CKD (chronic kidney disease) CVA (cerebral vascular accident) Diabetes HTN (hypertension) Hyperlipidemia Kidney stone Multiple myeloma - Surgical History Surgical History: Surgical History (Last Reviewed 04/16/20 @ 09:37 by Carol Younger APRN) History of cholecystectomy History of hemorrhoidectomy History of hysterectomy History of renal stent Hx of lithotripsy - Social History Smoking Status: Never smoker Substance Use Type: None Home Medications & Allergies Allergies lenalidomide [From Revlimid] Allergy (Mild, Verified 01/08/20 02:59) Rash oxybutynin Allergy (Verified 01/08/20 02:59) Rash pregabalin [From Lyrica] Allergy (Verified 01/08/20 02:59) double vision Home Medications Fish Oil 1,200 cap PO BID 07/14/17 [History Confirmed 08/12/20] insulin lispro [Humalog KwikPen Insulin] See Protocol SUB-Q ACHS PRN 07/14/17 [History Confirmed 08/12/20] sodium bicarbonate 650 mg PO BID 07/14/17 [History Confirmed 08/12/20] Humulin N NPH Insulin KwikPen 12 unit SUBCUT QPM 08/10/18 [History Confirmed 08/12/20] cholecalciferol (vitamin D3) [Vitamin D3] 1,000 unit PO DAILY 08/10/18 [History Confirmed 08/12/20] atorvastatin 40 mg PO DAILY 08/23/18 [History Confirmed 08/12/20] amlodipine 5 mg PO DAILY 09/20/18 [History Confirmed 08/12/20] aspirin 81 mg PO DAILY 10/18/18 [History Confirmed 08/12/20] cyanocobalamin (vitamin B-12) 1,000 mcg PO DAILY 05/02/19 [History Confirmed 08/12/20] acyclovir 400 mg PO BID 11/07/19 [History Confirmed 08/12/20] carvedilol [Coreg] 12.5 mg PO BID 30 Days #60 tab 11/07/19 [Rx Confirmed 08/12/20] rivaroxaban [Xarelto] 15 mg PO DAILY 30 Days #30 tab 11/07/19 [Rx Confirmed 08/12/20] cephalexin 250 mg PO DAILY 01/08/20 [History Confirmed 08/12/20] Objective - Height/Weight Height/Weight: Height 5 ft 6 in Weight 85.502 kg BSA for Today's Weight 1.99 - Vital Signs Vital Signs: 09/09/20 10:06 Temperature 97.4 F L Pulse Rate [Left Brachial] 73 Respiratory Rate 18 Blood Pressure [Right Arm] 169/79 H 02 Sat by Pulse Oximetry 98 - Pain Generalized Back Pain Intensity: 0 Left Arm Pain Intensity: 0 Generalized Teeth Pain Intensity: 0 Bilateral Shoulder Pain Intensity: 0 - Emotional Needs Assessment Emotional Needs Assessment: Emotional Needs Identified? No Distress Screening Total 0 Support System Child/Children,Family,Friend - ECOG Performance Status ECOG Score: 2 - mild fatigue ambulatory with walker Physical Exam Narrative: GENERAL APPEARANCE: In no acute distress. HEENT: No jaundice or lymphadenopathy. LUNGS: Clear to auscultation bilaterally, no rales, rhonchi, or crackles. CARDIOVASCULAR: S1 and S2, regular rate and rhythm, no murmurs, gallops, rubs. ABDOMEN: Soft, nontender. EXTREMITIES: No edema. NEUROLOGIC: Grossly intact. Results - Labs Labs: Diagram of Most Recent CBC and CMP 07/07/20 11:10 05/13/20 10:09 Labs - Last 7 Days 09/01/20 10:35: Free [place] LC, Quant 19.8 H, Free Lambda LC, Quant 11.2, Free [place]/Lambda Ratio 1.77 H Assessment and Plan (1) Multiple myeloma in remission kappa light chain multiple myeloma, refractory to Velcade dexamethasone and cyclophosphamide, could not tolerate Revlimid, progressed on Carfilzomib. -Ongoing brisk response to single agent Daratumumab. No overt adverse effects, the dizziness is not related to Daratumumab. -Dose held in 01/2020 and 02/2020 due to COVID-19 pandemics, K/L ratio is increasing in 03/03, resumed every 4 weeks cycle starting on 03/19/20. 09/09/2020: 1 month follow-up prior to cycle 36 single agent Daratumumab. -Doing well, proceed to treatment, see in 4 weeks. Plan to repeat [place]/lambda ratio in 7 weeks. -Continue Acyclovir 400mg bid for Herpes Zoster prophylaxis. She will call if refills are needed. -She knows to call if questions or concerns arise. (2) B12 deficiency anemia Antibodies for parietal cells and intrinsic factor were normal. -Switch to oral Vit B12 in 04/2019, repeat B12 level in 07/2019 was 900. (3) 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 -Completed Pamidronate 60mg monthly for 2 years, switched to every 3 month, stopped after 04/2018 since she stayed in remission for total of 2 years. -Last dose was 04/19/2018 (4) Atrial fibrillation Plavix has been changed to Xarelto by Cardiology -Rate controlled. (5) Anemia Hgb normalized on 06/13/20, B12 level was adequately replaced. (6) Steroid-induced hyperglycemia (7) Transient left leg weakness (8) Hearing loss (9) HTN (hypertension) Qualifiers: Hypertension type: essential hypertension Qualified Code(s): I10 - Essential (primary) hypertension - Chemo Plan Goal of Treatment: Palliative - Time with Patient Coordination of Care & Counseling Time: 20 min, greater than 50% of time spent with patient was for coordination of care(as documented) and [id number] counseling of patient and/or family. Dictated By: Margarito Buenrostro MD DD/ [id number] Signed By: <Electronically signed by Margarito Buenrostro MD> 09/09/20 [address] [facility] Work Phone: [phone] 211-454809-29-2020 Progress note Author Margarito Buenrostro [facility] August 12, 2020 11:28am Note Date/Time August 12, 2020 11:25am [facility] at [address] [address] Hem/Onc Follow Up Note - OP Signed Patient: Hailee Trivedi MR#: [id number] : 1940 Acct:[id number] Age/Sex: 80 / F Type: REG RCR Copies to: Curt Clark MD~ Subjective Date/Time of Service: Date of Service: 08/12/2020 Time of Service: 11:24 Chief Complaint: follow up appt prior to treatment HPI: Hailee presented for routine follow up prior to cycle 35 Daratumumab for her history of multiple myeloma. She continues on baby aspirin and Xarelto as directed. Chronically fatigued, stable. She has no specific complaint today. - Summary of Therapies Summary of Therapies: 1. Velcade/dexamethasone induction regimen with dexamethasone 20 mg started 07/08/2014, kappa light chain decreased to 833 and 33 from 7000 in October 2014. 2. Tried Revlimid in September 2014, discontinued 11/02/2014 due to suspicion that it may cause itching. 3. Velcade 1.3 mg/m sq weekly along with dexamethasone 6 mg p.o. weekly, light chain improved from 833 to 570 as of 04/18/2015, then increased again in May 2015. 4. Velcade induction regimen restarted with dexamethasone 20 mg p.o. weekly on 07/01 patient experienced extreme fatigue due to dehydration from hyperglycemia and diarrhea. 5. Velcade 1.3 mg with dexamethasone 6 mg and cyclophosphamide 300 mg IV [id number]/2015, developed grade 2 anemia, fatigue and grade 3 diarrhea. Cyclophosphamide was switched to p.o. 50 mg three weeks on, one week off on 09/26/2015, however, free kappa light chain went down to 1179 on 10/24/2015. 6. Carfilzomib 20 mg/m2 on days 1,2,8,9,15,16 of a 21 day cycle, started on 11/04/2015-02/24/2016. Discontinued due to disease progression. -Dose escalated to 27mg/m2 in cycle 2, on 12/17/2015. Dose reduced to 20mg/m2 on cycle 4 day 15 due to grade 2 fatigue. CURRENT THERAPY 1. Daratumumab 03/17/2016-. -03/17/16-05/05/16, weekly. -05/19/16-08/25/16, biweekly. -09/22/16-, every 4 weeks. 09/21/2017 held due to dizziness, resumed 12/21/2017. Skip treatment on 12/13/18 per patient request. -07/2019-, every 6 week per patient request. -Dose held in 01/2020 and 02/2020 due to COVID-19 pandemics. -Resumed every 4 weeks cycle on 03/19/20. 2. VitB12 injections, monthly, switched to oral in 04/2019. ROS Details: All systems reviewed & no additional complaints except as documented Subjective/ROS - Narrative: Subjective/ROS-narrative: Constitutional: Negative: No chills, fever, night sweats, positive: fatigue HEENT: Positive: sinus drainage, clear Cardiovascular: Negative: Chest pain, edema, palpitations Respiratory: Negative: Cough, shortness of breath, hemoptysis Gastrointestinal: Negative: pain, bloating, constipation, diarrhea, nausea, vomiting Genitourinary: Negative: Frequency, dysuria, history of CKD stage 4, recent lithotripsy with stone removed. Musculoskeletal positive low back pain x2 days resolved, ambulatory with cane Neurologic: Negative: Dizziness, headache, numbness, tingling positive: forgetful at times Psychiatric: Negative: Anxiety, depression, sleep changes Hematologic/lymphatic: Negative: Bleeding, bruising, enlarged lymph nodes Endocrine: Negative: Excessive sweating, flushing, intolerance to cold, intolerance to heat, weight gain/loss Allergic/immunology: Negative: Pruritus, rash PMFSH - Medical History Medical History: Medical History (Last Reviewed 04/16/20 @ 09:36 by Carol Younger APRN) Afib CKD (chronic kidney disease) CVA (cerebral vascular accident) Diabetes HTN (hypertension) Hyperlipidemia Kidney stone Multiple myeloma - Surgical History Surgical History: Surgical History (Last Reviewed 04/16/20 @ 09:37 by Carol Younger APRN) History of cholecystectomy History of hemorrhoidectomy History of hysterectomy History of renal stent Hx of lithotripsy - Social History Smoking Status: Never smoker Substance Use Type: None Home Medications & Allergies Allergies lenalidomide [From Revlimid] Allergy (Mild, Verified 01/08/20 02:59) Rash oxybutynin Allergy (Verified 01/08/20 02:59) Rash pregabalin [From Lyrica] Allergy (Verified 01/08/20 02:59) double vision Home Medications Fish Oil 1,200 cap PO BID 07/14/17 [History Confirmed 08/12/20] insulin lispro [Humalog KwikPen Insulin] See Protocol SUB-Q ACHS PRN 07/14/17 [History Confirmed 08/12/20] sodium bicarbonate 650 mg PO BID 07/14/17 [History Confirmed 08/12/20] Humulin N NPH Insulin KwikPen 12 unit SUBCUT QPM 08/10/18 [History Confirmed 08/12/20] cholecalciferol (vitamin D3) [Vitamin D3] 1,000 unit PO DAILY 08/10/18 [History Confirmed 08/12/20] atorvastatin 40 mg PO DAILY 08/23/18 [History Confirmed 08/12/20] amlodipine 5 mg PO DAILY 09/20/18 [History Confirmed 08/12/20] aspirin 81 mg PO DAILY 10/18/18 [History Confirmed 08/12/20] cyanocobalamin (vitamin B-12) 1,000 mcg PO DAILY 05/02/19 [History Confirmed 08/12/20] acyclovir 400 mg PO BID 11/07/19 [History Confirmed 08/12/20] carvedilol [Coreg] 12.5 mg PO BID 30 Days #60 tab 11/07/19 [Rx Confirmed 08/12/20] rivaroxaban [Xarelto] 15 mg PO DAILY 30 Days #30 tab 11/07/19 [Rx Confirmed 08/12/20] cephalexin 250 mg PO DAILY 01/08/20 [History Confirmed 08/12/20] linagliptin [Tradjenta] 5 mg PO DAILY 01/08/20 [History Confirmed 08/12/20] Objective - Height/Weight Height/Weight: Height 5 ft 6 in Weight 85.1 kg BSA for Today's Weight 1.99 - Vital Signs Vital Signs: 08/12/20 10:57 Temperature 97.4 F L Pulse Rate [Left Brachial] 81 Respiratory Rate 20 Blood Pressure [Right Arm] 160/80 H 02 Sat by Pulse Oximetry 97 - Pain Generalized Back Pain Intensity: 0 Left Arm Pain Intensity: 0 Generalized Teeth Pain Intensity: 0 Bilateral Shoulder Pain Intensity: 0 - Emotional Needs Assessment Emotional Needs Assessment: Emotional Needs Identified? No - ECOG Performance Status ECOG Score: 2 - mild fatigue ambulatory with walker Physical Exam Narrative: GENERAL APPEARANCE: In no acute distress. HEENT: No jaundice or lymphadenopathy. LUNGS: Clear to auscultation bilaterally, no rales, rhonchi, or crackles. CARDIOVASCULAR: S1 and S2, regular rate and rhythm, no murmurs, gallops, rubs. ABDOMEN: Soft, nontender. EXTREMITIES: No edema. NEUROLOGIC: Grossly intact. Results - Labs Labs: Diagram of Most Recent CBC and CMP 07/07/20 11:10 05/13/20 10:09 Assessment and Plan (1) Multiple myeloma in remission kappa light chain multiple myeloma, refractory to Velcade dexamethasone and cyclophosphamide, could not tolerate Revlimid, progressed on Carfilzomib. -Ongoing brisk response to single agent Daratumumab. No overt adverse effects, the dizziness is not related to Daratumumab. -Dose held in 01/2020 and 02/2020 due to COVID-19 pandemics, K/L ratio is increasing in 03/03, resumed every 4 weeks cycle starting on 03/19/20. 08/12/2020: 1 month follow-up prior to cycle 35 single agent Daratumumab. -Doing well, proceed to treatment, see in 4 weeks. Plan to repeat [place]/lambda ratio in 3 weeks. -Continue Acyclovir 400mg bid for Herpes Zoster prophylaxis. She will call if refills are needed. -She knows to call if questions or concerns arise. (2) Atrial fibrillation Plavix has been changed to Xarelto by Cardiology -Rate controlled. (3) Anemia Hgb normalized on 06/13/20, B12 level was adequately replaced. 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 -Last dose was 04/19/2018 (5) Steroid-induced hyperglycemia (6) Transient left leg weakness (7) HTN (hypertension) Qualifiers: Hypertension type: essential hypertension Qualified Code(s): I10 - Essential (primary) hypertension (8) Hearing loss (9) B12 deficiency anemia - Chemo Plan Goal of Treatment: Palliative - Time with Patient Coordination of Care & Counseling Time: 20 min, greater than 50% of time spent with patient was for coordination of care(as documented) and [id number] counseling of patient and/or family. Dictated By: Margarito Buenrostro MD DD/ Signed By: <Electronically signed by Margarito Buenrostro MD> 08/12/208 [facility] Work Phone: [phone] 863-741609-01-2020 Progress note Author Margarito Buenrostro [facility] July 15, 2020 10:42am Note Date/Time July 15, 2020 10:40am [facility] [place] [address] Hem/Onc Follow Up Note - OP Signed Patient: Hailee Trivedi MR#: [id number] : 1940 Acct:[id number] Age/Sex: 80 / F Type: REG RCR Copies to: Curt Clark MD~ Subjective Date/Time of Service: Date of Service: 07/15/2020 Time of Service: 10:39 Chief Complaint: Follow up appt prior to treatment HPI: Hailee presented for routine follow up prior to cycle 34 Daratumumab for her history of multiple myeloma. She continues on baby aspirin and Xarelto as directed. Chronically fatigued, stable. She has ongoing sinus drainage, but feels she can deal with it. Otherwise no specific complaint - Summary of Therapies Summary of Therapies: 1. Velcade/dexamethasone induction regimen with dexamethasone 20 mg started 07/08/2014, kappa light chain decreased to 833 and 33 from 7000 in October 2014. 2. Tried Revlimid in September 2014, discontinued 11/02/2014 due to suspicion that it may cause itching. 3. Velcade 1.3 mg/m sq weekly along with dexamethasone 6 mg p.o. weekly, light chain improved from 833 to 570 as of 04/18/2015, then increased again in May 2015. 4. Velcade induction regimen restarted with dexamethasone 20 mg p.o. weekly on 07/01 patient experienced extreme fatigue due to dehydration from hyperglycemia and diarrhea. 5. Velcade 1.3 mg with dexamethasone 6 mg and cyclophosphamide 300 mg IV [id number]/2015, developed grade 2 anemia, fatigue and grade 3 diarrhea. Cyclophosphamide was switched to p.o. 50 mg three weeks on, one week off on 09/26/2015, however, free kappa light chain went down to 1179 on 10/24/2015. 6. Carfilzomib 20 mg/m2 on days 1,2,8,9,15,16 of a 21 day cycle, started on 11/04/2015-02/24/2016. Discontinued due to disease progression. -Dose escalated to 27mg/m2 in cycle 2, on 12/17/2015. Dose reduced to 20mg/m2 on cycle 4 day 15 due to grade 2 fatigue. CURRENT THERAPY 1. Daratumumab 03/17/2016-. -03/17/16-05/05/16, weekly. -05/19/16-08/25/16, biweekly. -09/22/16-, every 4 weeks. 09/21/2017 held due to dizziness, resumed 12/21/2017. Skip treatment on 12/13/18 per patient request. -07/2019-, every 6 week per patient request. -Dose held in 01/2020 and 02/2020 due to COVID-19 pandemics. -Resumed every 4 weeks cycle on 03/19/20. 2. VitB12 injections, monthly, switched to oral in 04/2019. ROS Details: All systems reviewed & no additional complaints except as documented Subjective/ROS - Narrative: Subjective/ROS-narrative: Constitutional: Negative: No chills, fever, night sweats, positive: fatigue HEENT: Positive: sinus drainage, clear Cardiovascular: Negative: Chest pain, edema, palpitations Respiratory: Negative: Cough, shortness of breath, hemoptysis Gastrointestinal: Negative: pain, bloating, constipation, diarrhea, nausea, vomiting Genitourinary: Negative: Frequency, dysuria, history of CKD stage 4, recent lithotripsy with stone removed. Musculoskeletal positive low back pain x2 days resolved, ambulatory with cane Neurologic: Negative: Dizziness, headache, numbness, tingling positive: forgetful at times Psychiatric: Negative: Anxiety, depression, sleep changes Hematologic/lymphatic: Negative: Bleeding, bruising, enlarged lymph nodes Endocrine: Negative: Excessive sweating, flushing, intolerance to cold, intolerance to heat, weight gain/loss Allergic/immunology: Negative: Pruritus, rash PMFSH - Medical History Medical History: Medical History (Last Reviewed 04/16/20 @ 09:36 by Carol Younger APRN) Afib CKD (chronic kidney disease) CVA (cerebral vascular accident) Diabetes HTN (hypertension) Hyperlipidemia Kidney stone Multiple myeloma - Surgical History Surgical History: Surgical History (Last Reviewed 04/16/20 @ 09:37 by Carol Younger APRN) History of cholecystectomy History of hemorrhoidectomy History of hysterectomy History of renal stent Hx of lithotripsy - Social History Smoking Status: Never smoker Substance Use Type: None Home Medications & Allergies Allergies lenalidomide [From Revlimid] Allergy (Mild, Verified 01/08/20 02:59) Rash oxybutynin Allergy (Verified 01/08/20 02:59) Rash pregabalin [From Lyrica] Allergy (Verified 01/08/20 02:59) double vision Home Medications Fish Oil 1,200 cap PO BID 07/14/17 [History Confirmed 07/15/20] insulin lispro [Humalog KwikPen Insulin] See Protocol SUB-Q ACHS PRN 07/14/17 [History Confirmed 07/15/20] sodium bicarbonate 650 mg PO BID 07/14/17 [History Confirmed 07/15/20] Humulin N NPH Insulin KwikPen 12 unit SUBCUT QPM 08/10/18 [History Confirmed 07/15/20] cholecalciferol (vitamin D3) [Vitamin D3] 1,000 unit PO DAILY 08/10/18 [History Confirmed 07/15/20] atorvastatin 40 mg PO DAILY 08/23/18 [History Confirmed 07/15/20] amlodipine 5 mg PO DAILY 09/20/18 [History Confirmed 07/15/20] aspirin 81 mg PO DAILY 10/18/18 [History Confirmed 07/15/20] cyanocobalamin (vitamin B-12) 1,000 mcg PO DAILY 05/02/19 [History Confirmed 07/15/20] acyclovir 400 mg PO BID 11/07/19 [History Confirmed 07/15/20] carvedilol [Coreg] 12.5 mg PO BID 30 Days #60 tab 11/07/19 [Rx Confirmed 07/15/20] rivaroxaban [Xarelto] 15 mg PO DAILY 30 Days #30 tab 11/07/19 [Rx Confirmed 07/15/20] cephalexin 250 mg PO DAILY 01/08/20 [History Confirmed 07/15/20] linagliptin [Tradjenta] 5 mg PO DAILY 01/08/20 [History Confirmed 07/15/20] Objective - Height/Weight Height/Weight: Height 5 ft 6 in Weight 85.4 kg BSA for Today's Weight 1.97 - Vital Signs Vital Signs: 07/15/20 10:17 Temperature 97.6 F Pulse Rate [Left Brachial] 73 Respiratory Rate 20 Blood Pressure [Right Arm] 151/78 H 02 Sat by Pulse Oximetry 98 - Pain Generalized Back Pain Intensity: 0 Left Arm Pain Intensity: 0 Generalized Teeth Pain Intensity: 0 Bilateral Shoulder Pain Intensity: 0 - Emotional Needs Assessment Emotional Needs Assessment: Emotional Needs Identified? No Distress Screening Total 0 - ECOG Performance Status ECOG Score: 2 - mild fatigue ambulatory with walker Physical Exam Narrative: GENERAL APPEARANCE: In no acute distress. HEENT: No jaundice or lymphadenopathy. LUNGS: Clear to auscultation bilaterally, no rales, rhonchi, or crackles. CARDIOVASCULAR: S1 and S2, regular rate and rhythm, no murmurs, gallops, rubs. ABDOMEN: Soft, nontender. EXTREMITIES: No edema. NEUROLOGIC: Grossly intact. Results - Labs Labs: Diagram of Most Recent CBC and CMP 07/07/20 11:10 05/13/20 10:09 Labs - Last 7 Days 07/07/20 11:10: Free [place] LC, Quant 18.5, Free Lambda LC, Quant 11.7, Free [place]/Lambda Ratio 1.58 Assessment and Plan (1) Multiple myeloma in remission kappa light chain multiple myeloma, refractory to Velcade dexamethasone and cyclophosphamide, could not tolerate Revlimid, progressed on Carfilzomib. -Ongoing brisk response to single agent Daratumumab. No overt adverse effects, the dizziness is not related to Daratumumab. -Dose held in 01/2020 and 02/2020 due to COVID-19 pandemics, K/L ratio is increasing, no recent labs, would resume every 4 weeks cycle, starting today on 03/19/20. 07/15/2020: 1 month follow-up prior to cycle 34 single agent Daratumumab. -Doing well, proceed to treatment, see in 4 weeks. Plan to repeat [place]/lambda ratio in 8 weeks. -Continue Acyclovir 400mg bid for Herpes Zoster prophylaxis. She will call if refills are needed. -She knows to call if questions or concerns arise. (2) Atrial fibrillation Plavix has been changed to Xarelto by Cardiology -Rate controlled. (3) Anemia Hgb normalized on 06/13/20, B12 level was adequately replaced. 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 -Last dose was 04/19/2018 (5) Steroid-induced hyperglycemia (6) Transient left leg weakness (7) HTN (hypertension) Qualifiers: Hypertension type: essential hypertension Qualified Code(s): I10 - Essential (primary) hypertension (8) Hearing loss (9) B12 deficiency anemia - Chemo Plan Goal of Treatment: Palliative - Time with Patient Total Time Spent with Patient: 30 min Coordination of Care & Counseling Time: Greater than 50% of time spent with patient was for coordination of care (as documented) and [id number] counseling of patient and/or family. Dictated By: Margarito Buenrostro MD DD/ [id number] Signed By: <Electronically signed by Margarito Buenrostro MD> 07/15/20 1042 [facility] Work Phone: [phone] 362-514108-04-2020 Progress note Author Margarito Buenrostro [facility] June 17, 2020 10:25am Note Date/Time June 17, 2020 10: 22am [facility] [place] [id number] Hem/Onc Follow Up Note - OP Signed Patient: Hailee Trivedi MR#: [id number] : 1940 Acct:[id number] Age/Sex: 80 / F Type: REG RCR Copies to: Curt Clark MD~ Subjective Date/Time of Service: Date of Service: 06/17/2020 Time of Service: 10:22 Chief Complaint: Follow up appt prior to treatment HPI: Hailee presented for routine follow up prior to cycle 33 Daratumumab for her history of multiple myeloma. She continues on baby aspirin and Xarelto as directed. Chronically fatigued, stable. She had dizzy spells twice in the pasttwo weeks, resovled. Otherwise no specific complaint - Summary of Therapies Summary of Therapies: 1. Velcade/dexamethasone induction regimen with dexamethasone 20 mg started 07/08/2014, kappa light chain decreased to 833 and 33 from 7000 in October 2014. 2. Tried Revlimid in September 2014, discontinued 11/02/2014 due to suspicion that it may cause itching. 3. Velcade 1.3 mg/m sq weekly along with dexamethasone 6 mg p.o. weekly, light chain improved from 833 to 570 as of 04/18/2015, then increased again in May 2015. 4. Velcade induction regimen restarted with dexamethasone 20 mg p.o. weekly on 07/01 patient experienced extreme fatigue due to dehydration from hyperglycemia and diarrhea. 5. Velcade 1.3 mg with dexamethasone 6 mg and cyclophosphamide 300 mg IV [id number]/15/2015, developed grade 2 anemia, fatigue and grade 3 diarrhea. Cyclophosphamide was switched to p.o. 50 mg three weeks on, one week off on 09/26/2015, however, free kappa light chain went down to 1179 on 10/24/2015. 6. Carfilzomib 20 mg/m2 on days 1,2,8,9,15,16 of a 21 day cycle, started on 11/04/2015-02/24/2016. Discontinued due to disease progression. -Dose escalated to 27mg/m2 in cycle 2, on 12/17/2015. Dose reduced to 20mg/m2 on cycle 4 day 15 due to grade 2 fatigue. CURRENT THERAPY 1. Daratumumab 03/17/2016-. -03/17/16-05/05/16, weekly. -05/19/16-08/25/16, biweekly. -09/22/16-, every 4 weeks. 09/21/2017 held due to dizziness, resumed 12/21/2017. Skip treatment on 12/13/18 per patient request. -07/2019-, every 6 week per patient request. -Dose held in 01/2020 and 02/2020 due to COVID-19 pandemics. -Resumed every 4 weeks cycle on 03/19/20. 2. VitB12 injections, monthly, switched to oral in 04/2019. ROS Details: All systems reviewed & no additional complaints except as documented Subjective/ROS - Narrative: Subjective/ROS-narrative: Constitutional: Negative: No chills, fever, night sweats, positive: fatigue HEENT: Negative: epistaxis, rhinorrhea, sore throat positive: Gingival bleeding Cardiovascular: Negative: Chest pain, edema, palpitations Respiratory: Negative: Cough, shortness of breath, hemoptysis Gastrointestinal: Negative: pain, bloating, constipation, diarrhea, nausea, vomiting Genitourinary: Negative: Frequency, dysuria, history of CKD stage 4, recent lithotripsy with stone removed. Musculoskeletal positive low back pain x2 days resolved, ambulatory with cane Neurologic: Negative: Dizziness, headache, numbness, tingling positive: forgetful at times Psychiatric: Negative: Anxiety, depression, sleep changes Hematologic/lymphatic: Negative: Bleeding, bruising, enlarged lymph nodes Endocrine: Negative: Excessive sweating, flushing, intolerance to cold, intolerance to heat, weight gain/loss Allergic/immunology: Negative: Pruritus, rash PMFSH - Medical History Medical History: Medical History (Last Reviewed 04/16/20 @ 09:36 by Carol Younger APRN) Afib CKD (chronic kidney disease) CVA (cerebral vascular accident) Diabetes HTN (hypertension) Hyperlipidemia Kidney stone Multiple myeloma - Surgical History Surgical History: Surgical History (Last Reviewed 04/16/20 @ 09:37 by Carol Younger APRN) History of cholecystectomy History of hemorrhoidectomy History of hysterectomy History of renal stent Hx of lithotripsy - Social History Smoking Status: Never smoker Substance Use Type: None Home Medications & Allergies Allergies lenalidomide [From Revlimid] Allergy (Mild, Verified 01/08/20 02:59) Rash oxybutynin Allergy (Verified 01/08/20 02:59) Rash pregabalin [From Lyrica] Allergy (Verified 01/08/20 02:59) double vision Home Medications Fish Oil 1,200 cap PO BID 07/14/17 [History Confirmed 06/17/20] insulin lispro [Humalog KwikPen Insulin] See Protocol SUB-Q ACHS PRN 07/14/17 [History Confirmed 06/17/20] sodium bicarbonate 650 mg PO BID 07/14/17 [History Confirmed 06/17/20] Humulin N NPH Insulin KwikPen 12 unit SUBCUT QPM 08/10/18 [History Confirmed 06/17/20] cholecalciferol (vitamin D3) [Vitamin D3] 1,000 unit PO DAILY 08/10/18 [History Confirmed 06/17/20] atorvastatin 40 mg PO DAILY 08/23/18 [History Confirmed 06/17/20] amlodipine 5 mg PO DAILY 09/20/18 [History Confirmed 06/17/20] aspirin 81 mg PO DAILY 10/18/18 [History Confirmed 06/17/20] cyanocobalamin (vitamin B-12) 1,000 mcg PO DAILY 05/02/19 [History Confirmed 06/17/20] acyclovir 400 mg PO BID 11/07/19 [History Confirmed 06/17/20] carvedilol [Coreg] 12.5 mg PO BID 30 Days #60 tab 11/07/19 [Rx Confirmed 06/17/20] rivaroxaban [Xarelto] 15 mg PO DAILY 30 Days #30 tab 11/07/19 [Rx Confirmed 06/17/20] cephalexin 250 mg PO DAILY 01/08/20 [History Confirmed 06/17/20] linagliptin [Tradjenta] 5 mg PO DAILY 01/08/20 [History Confirmed 06/17/20] Objective - Height/Weight Height/Weight: Height 5 ft 6 in Weight 83.7 kg BSA for Today's Weight 1.98 - Vital Signs Vital Signs: 06/17/20 10:06 Temperature 97.2 F L Pulse Rate [Left Brachial] 64 Respiratory Rate 20 Blood Pressure [Right Arm] 139/69 02 Sat by Pulse Oximetry 98 - Pain Generalized Back Pain Intensity: 0 Left Arm Pain Intensity: 0 Generalized Teeth Pain Intensity: 0 Bilateral Shoulder Pain Intensity: 0 - Emotional Needs Assessment Emotional Needs Assessment: Emotional Needs Identified? Yes Distress Screening Total 3 - ECOG Performance Status ECOG Score: 2 - mild fatigue ambulatory with walker Physical Exam Narrative: GENERAL APPEARANCE: In no acute distress. HEENT: Moist and clear. LUNGS: Clear to auscultation bilaterally, no rales, rhonchi, or crackles. CARDIOVASCULAR: S1 and S2, regular rate and rhythm, no murmurs, gallops, rubs. ABDOMEN: Soft, nontender. EXTREMITIES: No edema. NEUROLOGIC: Grossly intact. Results - Labs Outside Labs: 06/13/20: WBC 7.7, Hgb 13.6, Plt 195 B12 1040 Assessment and Plan (1) Multiple myeloma in remission kappa light chain multiple myeloma, refractory to Velcade dexamethasone and cyclophosphamide, could not tolerate Revlimid, progressed on Carfilzomib. -Ongoing brisk response to single agent Daratumumab. No overt adverse effects, the dizziness is not related to Daratumumab. -Dose held in 01/2020 and 02/2020 due to COVID-19 pandemics, K/L ratio is increasing, no recent labs, would resume every 4 weeks cycle, starting today on 03/19/20. 06/17/2020: 1 month follow-up prior to cycle 33 single agent Daratumumab. -Doing well, proceed to treatment, see in 4 weeks. Plan to repeat [place]/lambda ratio in 4 weeks. -Continue Acyclovir 400mg bid for Herpes Zoster prophylaxis. She will call if refills are needed. -She knows to call if questions or concerns arise. (2) Atrial fibrillation Plavix has been changed to Xarelto by Cardiology -Rate controlled. (3) Anemia Hgb normalized on 06/13/20, no B12 deficiency. 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 -Last dose was 04/19/2018, should be ok if she has invasive dental procedure planned (need teeth to be pulled). -No worsening symptoms. (5) Steroid-induced hyperglycemia (6) Transient left leg weakness (7) HTN (hypertension) Qualifiers: Hypertension type: essential hypertension Qualified Code(s): I10 - Essential (primary) hypertension (8) Hearing loss (9) B12 deficiency anemia - Chemo Plan Goal of Treatment: Palliative - Time with Patient Coordination of Care & Counseling Time: 20 min, greater than 50% of time spent with patient was for coordination of care(as documented) and [id number] counseling of patient and/or family. Dictated By: Margarito Buenrostro MD DD/ [id number] Signed By: <Electronically signed by Margarito Buenrostro MD> 06/17/20 1027 [facility] Work Phone: [phone] 852-885007-07-2020 Progress note Author Margarito Buenrostro [facility] May 20, 2020 10:10am Note Date/Time May 20, 2020 10:00 am [facility] [place] [id number] Hem/Onc Follow Up Note - OP Signed Patient: Hailee Trivedi MR#: [id number] : 1940 Acct:[id number] Age/Sex: 80 / F Type: REG RCR Copies to: Curt Clark MD~ Subjective Date/Time of Service: Date of Service: 05/20/2020 Time of Service: 09:58 Chief Complaint: Follow up appt prior to treatment HPI: Hailee presented for routine follow up prior to cycle 32 Daratumumab for her history of multiple myeloma. She continues on baby aspirin and Xarelto as directed. Chronically fatigued, stable. Otherwise no specific complaint - Summary of Therapies Summary of Therapies: 1. Velcade/dexamethasone induction regimen with dexamethasone 20 mg started 07/08/2014, kappa light chain decreased to 833 and 33 from 7000 in October 2014. 2. Tried Revlimid in September 2014, discontinued 11/02/2014 due to suspicion that it may cause itching. 3. Velcade 1.3 mg/m sq weekly along with dexamethasone 6 mg p.o. weekly, light chain improved from 833 to 570 as of 04/18/2015, then increased again in May 2015. 4. Velcade induction regimen restarted with dexamethasone 20 mg p.o. weekly on 07/01 patient experienced extreme fatigue due to dehydration from hyperglycemia and diarrhea. 5. Velcade 1.3 mg with dexamethasone 6 mg and cyclophosphamide 300 mg IV [id number]/15/2015, developed grade 2 anemia, fatigue and grade 3 diarrhea. Cyclophosphamide was switched to p.o. 50 mg three weeks on, one week off on 09/26/2015, however, free kappa light chain went down to 1179 on 10/24/2015. 6. Carfilzomib 20 mg/m2 on days 1,2,8,9,15,16 of a 21 day cycle, started on 11/04/2015-02/24/2016. Discontinued due to disease progression. -Dose escalated to 27mg/m2 in cycle 2, on 12/17/2015. Dose reduced to 20mg/m2 on cycle 4 day 15 due to grade 2 fatigue. CURRENT THERAPY 1. Daratumumab 03/17/2016-. -03/17/16-05/05/16, weekly. -05/19/16-08/25/16, biweekly. -09/22/16-, every 4 weeks. 09/21/2017 held due to dizziness, resumed 12/21/2017. Skip treatment on 12/13/18 per patient request. -07/2019-, every 6 week per patient request. -Dose held in 01/2020 and 02/2020 due to COVID-19 pandemics. -Resumed every 4 weeks cycle on 03/19/20. 2. VitB12 injections, monthly, switched to oral in 04/2019. ROS Details: All systems reviewed & no additional complaints except as documented Subjective/ROS - Narrative: Subjective/ROS-narrative: Constitutional: Negative: No chills, fever, night sweats, positive: fatigue HEENT: Negative: epistaxis, rhinorrhea, sore throat positive: Gingival bleeding Cardiovascular: Negative: Chest pain, edema, palpitations Respiratory: Negative: Cough, shortness of breath, hemoptysis Gastrointestinal: Negative: pain, bloating, constipation, diarrhea, nausea, vomiting Genitourinary: Negative: Frequency, dysuria, history of CKD stage 4, recent lithotripsy with stone removed. Musculoskeletal positive low back pain x2 days resolved, ambulatory with cane Neurologic: Negative: Dizziness, headache, numbness, tingling positive: forgetful at times Psychiatric: Negative: Anxiety, depression, sleep changes Hematologic/lymphatic: Negative: Bleeding, bruising, enlarged lymph nodes Endocrine: Negative: Excessive sweating, flushing, intolerance to cold, intolerance to heat, weight gain/loss Allergic/immunology: Negative: Pruritus, rash PMFSH - Medical History Medical History: Medical History (Last Reviewed 04/16/20 @ 09:36 by Carol Younger APRN) Afib CKD (chronic kidney disease) CVA (cerebral vascular accident) Diabetes History of hysterectomy HTN (hypertension) Hyperlipidemia Kidney stone Multiple myeloma - Surgical History Surgical History: Surgical History (Last Reviewed 04/16/20 @ 09:37 by Carol Younger APRN) History of cholecystectomy History of hemorrhoidectomy History of renal stent Hx of lithotripsy - Social History Smoking Status: Never smoker Substance Use Type: None Home Medications & Allergies Allergies lenalidomide [From Revlimid] Allergy (Mild, Verified 02/25/20 02:59) Rash oxybutynin Allergy (Verified 01/08/20 02:59) Rash pregabalin [From Lyrica] Allergy (Verified 01/08/20 02:59) double vision Home Medications Fish Oil 1,200 cap PO BID 07/14/17 [History Confirmed 05/20/20] insulin lispro [Humalog KwikPen Insulin] See Protocol SUB-Q ACHS PRN 07/14/17 [History Confirmed 05/20/20] sodium bicarbonate 650 mg PO BID 07/14/17 [History Confirmed 05/20/20] Humulin N NPH Insulin KwikPen 12 unit SUBCUT QPM 08/10/18 [History Confirmed 05/20/20] cholecalciferol (vitamin D3) [Vitamin D3] 1,000 unit PO DAILY 08/10/18 [History Confirmed 05/20/20] atorvastatin 40 mg PO DAILY 08/23/18 [History Confirmed 05/20/20] amlodipine 5 mg PO DAILY 09/20/18 [History Confirmed 05/20/20] aspirin 81 mg PO DAILY 10/18/18 [History Confirmed 05/20/20] cyanocobalamin (vitamin B-12) 1,000 mcg PO DAILY 05/02/19 [History Confirmed 05/20/20] acyclovir 400 mg PO BID 11/07/19 [History Confirmed 05/20/20] carvedilol [Coreg] 12.5 mg PO BID 30 Days #60 tab 11/07/19 [Rx Confirmed 05/20/20] rivaroxaban [Xarelto] 15 mg PO DAILY 30 Days #30 tab 11/07/19 [Rx Confirmed 05/20/20] cephalexin 250 mg PO DAILY 01/08/20 [History Confirmed 05/20/20] linagliptin [Tradjenta] 5 mg PO DAILY 01/08/20 [History Confirmed 05/20/20] Objective - Height/Weight Height/Weight: Height 5 ft 6 in Weight 84.3 kg BSA for Today's Weight 2.00 - Vital Signs Vital Signs: 05/20/20 09:43 Temperature 97.5 F L Pulse Rate [Left Brachial] 77 Respiratory Rate 20 Blood Pressure [Right Arm] 131/72 02 Sat by Pulse Oximetry 98 - Pain Generalized Back Pain Intensity: 0 Left Arm Pain Intensity: 0 Generalized Teeth Pain Intensity: 0 Bilateral Shoulder Pain Intensity: 0 - Emotional Needs Assessment Emotional Needs Assessment: Emotional Needs Identified? No Distress Screening Total 0 - ECOG Performance Status ECOG Score: 1 - mild fatigue ambulatory with walker Physical Exam Narrative: GENERAL APPEARANCE: In no acute distress. HEENT: Moist and clear. LUNGS: Clear to auscultation bilaterally, no rales, rhonchi, or crackles. CARDIOVASCULAR: S1 and S2, regular rate and rhythm, no murmurs, gallops, rubs. ABDOMEN: Soft, nontender. EXTREMITIES: No edema. NEUROLOGIC: Grossly intact. Results - Labs Labs: Diagram of Most Recent CBC and CMP 05/13/20 10:09 05/13/20 10:09 Labs - Last 7 Days 05/13/20 10:09: Free [place] LC, Quant 18.5, Free Lambda LC, Quant 9.6, Free [place]/Lambda Ratio 1.93 H 05/13/20 10:09: PHA Creatinine Clear [id number], Sodium 138, Potassium 4.6, Chloride 112, Carbon Dioxide 19.5 L, BUN 33 H, Creatinine 2.45 H, Est GFR ( Amer) 23, Est GFR (Non-Af Amer) 19, Glucose 108 H, Calcium 8.8, Total Bilirubin 0.5, AST 16, ALT 12, Alkaline Phosphatase 99 H, Total Protein 5.9 L, Albumin 3.5, Globulin 2.4, Albumin/Globulin Ratio 1.5 05/13/20 10:09: WBC 7.7, Corrected WBC 7.7, RBC 3.87, Hgb 12.1, Hct 36.5, MCV 94.3, MCH 31.2, MCHC 33.1, RDW 15.2, Plt Count 186, MPV 9.8, Neut % (Auto) 59.3,Lymph % (Auto) 31.6, [place] % (Auto) 7.5, Eos % (Auto) 1.1, Baso % (Auto) 0.5, Neut # (Auto) 4.6, Lymph # (Auto) 2.4, [place] # (Auto) 0.6, Eos # (Auto) 0.1, Baso# (Auto) 0.0, Nucleated RBC % (auto) 0.4 Assessment and Plan (1) Multiple myeloma in remission kappa light chain multiple myeloma, refractory to Velcade dexamethasone and cyclophosphamide, could not tolerate Revlimid, progressed on Carfilzomib. -Ongoing brisk response to single agent Daratumumab. No overt adverse effects, the dizziness is not related to Daratumumab. -Dose held in 01/2020 and 02/2020 due to COVID-19 pandemics, K/L ratio is increasing, no recent labs, would resume every 4 weeks cycle, starting today on 03/19/20. 05/20/2020: 1 month follow-up prior to cycle 32 single agent Daratumumab. -Doing well, proceed to treatment, see in 4 weeks. Plan to repeat [place]/lambda ratio in 8 weeks. We will update B12 level in 4 weeks. -Continue Acyclovir 400mg bid for Herpes Zoster prophylaxis. She will call if refills are needed. -She knows to call if questions or concerns arise. (2) Atrial fibrillation Plavix has been changed to Xarelto by Cardiology -Rate controlled. -She appears to have gingival bleeding for a couple of months, she will have a dentist visit, in next month and she will need to discuss with Cardiology about it again. No gross bleeding. 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 Dictated By: Margarito Buenrostro MD DD/ [id number] Signed By: <Electronically signed by Margarito uBenrostro MD> 05/20/20 1010 [facility] Work Phone: [phone] Progress note Author Carol Younger [facility] April 16, 2020 10:49am Note Date/Time April 16, 2020 9:10a m [facility] at [address] [id number] Hem/Onc Follow Up Note - OP Signed Patient: Hailee Trivedi MR#: [id number] : 1940 Acct:[id number] Age/Sex: 79 / F Type: REG RCR Copies to: MD Curt Stone MD~ Subjective Date/Time of Service: Date of Service: 04/16/2020 Time of Service: 08:40 Chief Complaint: Follow up appt prior to cycle 31 Daratumumab for her history ofMultiple Myeloma. HPI: Hailee presented for routine follow up prior to cycle 31 Daratumumab for her history of multiple myeloma. The patient reported, gingival bleeding she further denies melena, and hematochezia. Hailee has a follow-up appointment with her dentist and cardiology in the next month. She continues on baby aspirin and Xarelto as directed. Overall her anemia is stable with hemoglobin 11.6, 2 days of lower back pain and right wrist pain resolved. She believes her back pain/wrist pain was related to working in the garden. We reviewed her k/l proteins which showed mild improvement to 1.69. Calcium nml. - Summary of Therapies Summary of Therapies: 1. Velcade/dexamethasone induction regimen with dexamethasone 20 mg started 07/08/2014, kappa light chain decreased to 833 and 33 from 7000 in October 2014. 2. Tried Revlimid in September 2014, discontinued 11/02/2014 due to suspicion that it may cause itching. 3. Velcade 1.3 mg/m sq weekly along with dexamethasone 6 mg p.o. weekly, light chain improved from 833 to 570 as of 04/18/2015, then increased again in May 2015. 4. Velcade induction regimen restarted with dexamethasone 20 mg p.o. weekly on 07/01 patient experienced extreme fatigue due to dehydration from hyperglycemia and diarrhea. 5. Velcade 1.3 mg with dexamethasone 6 mg and cyclophosphamide 300 mg IV [id number]/15/2015, developed grade 2 anemia, fatigue and grade 3 diarrhea. Cyclophosphamide was switched to p.o. 50 mg three weeks on, one week off on 09/26/2015, however, free kappa light chain went down to 1179 on 10/24/2015. 6. Carfilzomib 20 mg/m2 on days 1,2,8,9,15,16 of a 21 day cycle, started on 11/04/2015-02/24/2016. Discontinued due to disease progression. -Dose escalated to 27mg/m2 in cycle 2, on 12/17/2015. Dose reduced to 20mg/m2 on cycle 4 day 15 due to grade 2 fatigue. CURRENT THERAPY 1. Daratumumab 03/17/2016-. -03/17/16-05/05/16, weekly. -05/19/16-08/25/16, biweekly. -09/22/16-, every 4 weeks. 09/21/2017 held due to dizziness, resumed 12/21/2017. Skip treatment on 12/13/18 per patient request. -07/2019-, every 6 week per patient request. -Dose held in 01/2020 and 02/2020 due to COVID-19 pandemics. -Resumed every 4 weeks cycle on 03/19/20. 2. VitB12 injections, monthly, switched to oral in 04/2019. ROS Details: All systems reviewed & no additional complaints except as documented Subjective/ROS - Narrative: Subjective/ROS-narrative: Constitutional: Negative: No chills, fever, night sweats, positive: fatigue HEENT: Negative: epistaxis, rhinorrhea, sore throat positive: Gingival bleeding Cardiovascular: Negative: Chest pain, edema, palpitations Respiratory: Negative: Cough, shortness of breath, hemoptysis Gastrointestinal: Negative: pain, bloating, constipation, diarrhea, nausea, vomiting Genitourinary: Negative: Frequency, dysuria, history of CKD stage 4, recent lithotripsy with stone removed. Musculoskeletal positive low back pain x2 days resolved, ambulatory with cane Neurologic: Negative: Dizziness, headache, numbness, tingling positive: forgetful at times Psychiatric: Negative: Anxiety, depression, sleep changes Hematologic/lymphatic: Negative: Bleeding, bruising, enlarged lymph nodes Endocrine: Negative: Excessive sweating, flushing, intolerance to cold, intolerance to heat, weight gain/loss Allergic/immunology: Negative: Pruritus, rash PMFSH - History Attestation statement: The following information was validated with the patient. Source: Old Records Reviewed - Medical History Medical History: Medical History (Last Reviewed 04/16/20 @ 09:36 by Carol Younger APRN) Afib CKD (chronic kidney disease) CVA (cerebral vascular accident) Diabetes History of hysterectomy HTN (hypertension) Hyperlipidemia Kidney stone Multiple myeloma - Surgical History Surgical History: Surgical History (Last Reviewed 04/16/20 @ 09:37 by Carol Younger APRN) History of cholecystectomy History of hemorrhoidectomy History of renal stent Hx of lithotripsy - Social History Smoking Status: Never smoker Substance Use Type: None Home Medications & Allergies Allergies lenalidomide [From Revlimid] Allergy (Mild, Verified 01/08/20 02:59) Rash oxybutynin Allergy (Verified 01/08/20 02:59) Rash pregabalin [From Lyrica] Allergy (Verified 01/08/20 02:59) double vision Home Medications Fish Oil 1,200 cap PO BID 07/14/17 [History Confirmed 04/16/20] insulin lispro [Humalog KwikPen Insulin] See Protocol SUB-Q ACHS PRN 07/14/17 [History Confirmed 04/16/20] sodium bicarbonate 650 mg PO BID 07/14/17 [History Confirmed 04/16/20] Humulin N NPH Insulin KwikPen 12 unit SUBCUT QPM 08/10/18 [History Confirmed 04/16/20] cholecalciferol (vitamin D3) [Vitamin D3] 1,000 unit PO DAILY 08/10/18 [History Confirmed 04/16/20] atorvastatin 40 mg PO DAILY 08/23/18 [History Confirmed 04/16/20] amlodipine 5 mg PO DAILY 09/20/18 [History Confirmed 04/16/20] aspirin 81 mg PO DAILY 10/18/18 [History Confirmed 04/16/20] cyanocobalamin (vitamin B-12) 1,000 mcg PO DAILY 05/02/19 [History Confirmed 04/16/20] acyclovir 400 mg PO BID 11/07/19 [History Confirmed 04/16/20] carvedilol [Coreg] 12.5 mg PO BID 30 Days #60 tab 11/07/19 [Rx Confirmed 04/16/20] rivaroxaban [Xarelto] 15 mg PO DAILY 30 Days #30 tab 11/07/19 [Rx Confirmed 04/16/20] cephalexin 250 mg PO DAILY 01/08/20 [History Confirmed 04/16/20] linagliptin [Tradjenta] 5 mg PO DAILY 01/08/20 [History Confirmed 04/16/20] Objective - Height/Weight Height/Weight: Height 5 ft 6 in Weight 85.6 kg BSA for Today's Weight 1.98 - Vital Signs Vital Signs: 04/16/20 08:38 Temperature 98.5 F Pulse Rate [Left Brachial] 71 Respiratory Rate 20 Blood Pressure [Right Arm] 138/70 02 Sat by Pulse Oximetry 97 - Pain Generalized Back Pain Intensity: 0 Left Arm Pain Intensity: 0 Generalized Teeth Pain Intensity: 0 Bilateral Shoulder Pain Intensity: 0 - Emotional Needs Assessment Emotional Needs Assessment: Emotional Needs Identified? No Distress Screening Total 0 - ECOG Performance Status ECOG Score: 1 - mild fatigue ambulatory with walker Physical Exam Narrative: Constitutional: No acute distress, well-nourished, alert/oriented x3, cooperative HEENT: Head: Normocephalic, atrophic Eyes: EOMI, PERRL, clear conjunctiva ENT: Moist mucous membrane, oropharynx clear no oral ulcerations or candidiasis,poor dentition Neck: Supple, trachea midline, full range of motion, no tenderness Chest/axilla exam: No tenderness, no supra/infra clavicular or axillary lymphadenopathy, right chest port without signs of infection Respiratory: No accessory muscle use, anterior and posterior chest clear diminished in bases, no rales, no rhonchi, no wheeze, room air Cardiovascular: S1-S2, no murmur, no rubs, no gallop, no peripheral edema, no calf tenderness Gastrointestinal: Normal active bowel sounds, soft, no abdominal tenderness, no distention, no organomegaly, small ecchymotic area near umbilicus : No gross hematuria Groin: No inguinal lymphadenopathy Musculoskeletal: Full range of motion, no vertebral tenderness, ambulatory with cane Skin: Intact, dry, warm, normal turgor Neurologic: Alert, oriented x3 forgetful at times, moving all extremities, vision grossly intact, hearing grossly intact, normal speech, no visible tremors Psychiatric: Normal affect, normal thought process, cooperative Results - Labs Labs: Diagram of Most Recent CBC and CMP 04/09/20 09:35 04/09/20 09:35 Labs - Last 7 Days 04/09/20 09:35: Free [place] LC, Quant 16.6, Free Lambda LC, Quant 9.8, Free [place]/Lambda Ratio 1.69 H 04/09/20 09:35: PHA Creatinine Clear [id number], Sodium 138, Potassium 4.6, Chloride 111, Carbon Dioxide 23.1, BUN 28 H, Creatinine 2.71 H, Est GFR (AfricanAmer) 21, Est GFR (Non-Af Amer) 17, Glucose 132 H, Calcium 9.0, Total Bilirubin 0.6, AST 16, ALT 14, Alkaline Phosphatase 91, Total Protein 5.7 L, Albumin 3.3, Globulin 2.4, Albumin/Globulin Ratio 1.4 04/09/20 09:35: WBC 6.8, Corrected WBC 6.8, RBC 3.65, Hgb 11.6 L, Hct 34.7, MCV 95.2, MCH 31.7, MCHC 33.3, RDW 14.4, Plt Count 208, MPV 9.3, Neut % (Auto) 62.6,Lymph % (Auto) 29.5, [place] % (Auto) 5.8, Eos % (Auto) 1.5, Baso % (Auto) 0.6, Neut # (Auto) 4.2, Lymph # (Auto) 2.0, [place] # (Auto) 0.4, Eos # (Auto) 0.1, Baso# (Auto) 0.0, Nucleated RBC % (auto) 0.2 Assessment and Plan (1) Multiple myeloma in remission kappa light chain multiple myeloma, refractory to Velcade dexamethasone and cyclophosphamide, could not tolerate Revlimid, progressed on Carfilzomib. -Ongoing brisk response to single agent Daratumumab. No overt adverse effects, the dizziness is not related to Daratumumab. -Dose held in 01/2020 and 02/2020 due to COVID-19 pandemics, K/L ratio is increasing, no recent labs, would resume every 4 weeks cycle, starting today on 03/19/20. 04/16/2020: 1 month follow-up prior to cycle 31 single agent Daratumumab. -Stable amenia with hemoglobin 11.6. stable fatigue, no gross bleeding, no worsening bone pain. -MARIAMA on Chronic, history CKD stage 4 serum creatinine 2.71, s/p lithotripsy withstone removed. Urology following. The patient is also followed by nephrology -[place]/lambda ratio mild improvement 1.69 -Continue Acyclovir 400mg bid for Herpes Zoster prophylaxis. She will call if refills are needed. -Patient will return in [address] Margarito or sooner with repeat CBC, CMP, k/L ratio. -She knows to call if questions or concerns arise. (2) Atrial fibrillation Plavix has been changed to Xarelto by Cardiology -Rate controlled. -She appears to have gingival bleeding for a couple of months, she will have a dentist visit, in next month and she will need to discuss with Cardiology about it again. No gross bleeding. (3) Anemia She is slightly more anemic, current hemoglobin 11.6, Hgb >11, would monitor. 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 -Last dose was 04/19/2018, should be ok if she has invasive dental procedure planned (need teeth to be pulled). -No worsening symptoms. 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 She was taking insulin 28 units on treatment days, however, HbA1c continue to rise ( 8.0 from 7.4) -Solu-Medrol discontinued in 02/2019, no reactions. -patient is followed by diabetic clinic, diabetes is better controlled. Insulin prn. (6) Transient left leg weakness Likely due to a TIA, improving. -Compliant with aspirin, Plavix, and statins, BP normal. -ambulatory with cane. (7) HTN (hypertension) Qualifiers: Hypertension type: essential hypertension Qualified Code(s): I10 - Essential (primary) hypertension (8) Hearing loss (9) B12 deficiency anemia - Chemo Plan Goal of Treatment: Palliative - Time with Patient Coordination of Care & Counseling Time: Greater than 50% of time spent with patient was for coordination of care (as documented) and [id number] counseling of patient and/or family. Dictated By: Carol Younger APRN DD/ [id number] Signed By: <Electronically signed by RAMAKRISHNA Younger> 04/16/20 [address] [facility] Work Phone: [phone] Progress note Author Margarito Buenrostro [facility] March 19, 2020 8:55am Note Date/Time March 19, 2020 8:37am [facility] at [address] [address] Hem/Onc Follow Up Note - OP Signed Patient: Hailee Trivedi MR#: [id number] : 1940 Acct:[id number] Age/Sex: 79 / F Type: REG RCR Copies to: Curt Clark MD~ Subjective Date/Time of Service: Date of Service: 03/19/2020 Time of Service: 08:37 Chief Complaint: Follow up appt prior to treatment HPI: Hailee presents for routine follow up prior to Daratumumab. She is overall stable, she had kidney stone removed. She reports bloody mouth since 11/2019. Left shoulder hurts last week, now better. - Summary of Therapies Summary of Therapies: 1. Velcade/dexamethasone induction regimen with dexamethasone 20 mg started 07/08/2014, kappa light chain decreased to 833 and 33 from 7000 in October 2014. 2. Tried Revlimid in September 2014, discontinued 11/02/2014 due to suspicion that it may cause itching. 3. Velcade 1.3 mg/m sq weekly along with dexamethasone 6 mg p.o. weekly, light chain improved from 833 to 570 as of 04/18/2015, then increased again in May 2015. 4. Velcade induction regimen restarted with dexamethasone 20 mg p.o. weekly on 07/01 patient experienced extreme fatigue due to dehydration from hyperglycemia and diarrhea. 5. Velcade 1.3 mg with dexamethasone 6 mg and cyclophosphamide 300 mg IV [id number]/2015, developed grade 2 anemia, fatigue and grade 3 diarrhea. Cyclophosphamide was switched to p.o. 50 mg three weeks on, one week off on 09/26/2015, however, free kappa light chain went down to 1179 on 10/24/2015. 6. Carfilzomib 20 mg/m2 on days 1,2,8,9,15,16 of a 21 day cycle, started on 11/04/2015-02/24/2016. Discontinued due to disease progression. -Dose escalated to 27mg/m2 in cycle 2, on 12/17/2015. Dose reduced to 20mg/m2 on cycle 4 day 15 due to grade 2 fatigue. CURRENT THERAPY 1. Daratumumab 03/17/2016-. -03/17/16-05/05/16, weekly. -05/19/16-08/25/16, biweekly. -09/22/16-, every 4 weeks. 09/21/2017 held due to dizziness, resumed 12/21/2017. Skip treatment on 12/13/18 per patient request. -07/2019-, every 6 week per patient request. -Dose held in 01/2020 and 02/2020 due to COVID-19 pandemics. -Resumed every 4 weeks cycle on 03/19/20. 2. VitB12 injections, monthly, switched to oral in 04/2019. Subjective/ROS - Narrative: CONSTITUTIONAL: Gaining weight, no fever, chills. CARDIOVASCULAR: No chest pain, chest pressure or chest discomfort. No palpitations or edema. RESPIRATORY: No shortness of breath, cough or hemoptysis. GASTROINTESTINAL: No dysphagia, nausea, vomiting or diarrhea. No abdominal pain,melena, hematochezia. GENITOURINARY: No dysuria, urinary frequency or urgency. NEUROLOGICAL: Positive for forgetfulness, Positive for double vision on extreme lateral gaze, left leg weakness. MUSCULOSKELETAL: No pain PMFSH - Medical History Medical History: Medical History (Last Updated 01/26/20 @ 17:29 by Haydee Henderson, RN) Afib CKD (chronic kidney disease) CVA (cerebral vascular accident) Diabetes HTN (hypertension) History of hysterectomy Hyperlipidemia Kidney stone Multiple myeloma - Surgical History Surgical History: Surgical History (Last Updated 01/26/20 @ 17:29 by Haydee Henderson, RN) History of cholecystectomy History of hemorrhoidectomy History of renal stent Hx of lithotripsy - Social History Smoking Status: Never smoker Substance Use Type: None Home Medications & Allergies Allergies lenalidomide [From Revlimid] Allergy (Mild, Verified 01/08/20 02:59) Rash oxybutynin Allergy (Verified 01/08/20 02:59) Rash pregabalin [From Lyrica] Allergy (Verified 01/08/20 02:59) double vision Home Medications Fish Oil 1,200 cap PO BID 07/14/17 [History Confirmed 03/19/20] insulin lispro [Humalog KwikPen Insulin] See Protocol SUB-Q ACHS PRN 07/14/17 [History Confirmed 03/19/20] sodium bicarbonate 650 mg PO BID 07/14/17 [History Confirmed 03/19/20] Humulin N NPH Insulin KwikPen 12 unit SUBCUT QPM 08/10/18 [History Confirmed 03/19/20] cholecalciferol (vitamin D3) [Vitamin D3] 1,000 unit PO DAILY 08/10/18 [History Confirmed 03/19/20] atorvastatin 40 mg PO DAILY 08/23/18 [History Confirmed 03/19/20] amlodipine 5 mg PO DAILY 09/20/18 [History Confirmed 03/19/20] aspirin 81 mg PO DAILY 10/18/18 [History Confirmed 03/19/20] cyanocobalamin (vitamin B-12) 1,000 mcg PO DAILY 05/02/19 [History Confirmed 03/19/20] acyclovir 400 mg PO BID 11/07/19 [History Confirmed 03/19/20] carvedilol [Coreg] 12.5 mg PO BID 30 Days #60 tab 11/07/19 [Rx Confirmed 03/19/20] rivaroxaban [Xarelto] 15 mg PO DAILY 30 Days #30 tab 11/07/19 [Rx Confirmed 03/19/20] cephalexin 250 mg PO DAILY 01/08/20 [History Confirmed 03/19/20] linagliptin [Tradjenta] 5 mg PO DAILY 01/08/20 [History Confirmed 03/19/20] Objective - Height/Weight Height/Weight: Height 5 ft 6 in Weight 84.5 kg BSA for Today's Weight 2.01 - Vital Signs Vital Signs: 03/19/20 08:13 Temperature 96.7 F L Pulse Rate [Left Brachial] 62 Respiratory Rate 20 Blood Pressure [Right Arm] 138/64 02 Sat by Pulse Oximetry 98 - Pain Bilateral Shoulder Pain Intensity: 3 Generalized Back Pain Intensity: 0 Left Arm Pain Intensity: 0 Generalized Teeth Pain Intensity: 0 - Emotional Needs Assessment Emotional Needs Assessment: Emotional Needs Identified? Yes Distress Screening Total 0 - ECOG Performance Status ECOG Score: 1 Physical Exam Narrative: GENERAL APPEARANCE: In no acute distress. Obese. She is alert, oriented and appropriate. HEENT: Moist and clear, no oral thrush. LUNGS: Breasting comfortably on room air. EXTREMITIES: Trace edema. NEUROLOGIC: Grossly intact, gait was slow, muscle strength 5/5. Results - Labs Labs: Diagram of Most Recent CBC and CMP 02/13/20 09:00 02/13/20 09:00 Assessment and Plan (1) Multiple myeloma in remission kappa light chain multiple myeloma, refractory to Velcade dexamethasone and cyclophosphamide, could not tolerate Revlimid, progressed on Carfilzomib. -Ongoing brisk response to single agent Daratumumab. No overt adverse effects, the dizziness is not related to Daratumumab. -Dose held in 01/2020 and 02/2020 due to COVID-19 pandemics, K/L ratio is increasing, no recent labs, would resume every 4 weeks cycle, starting today on 03/19/20. -Repeat K/L ratio today, see in 4 weeks with K/L ratio. - She knows to call me if questions or concerns arise. (2) Atrial fibrillation Plavix has been changed to Xarelto by Cardiology -Rate controlled. -She appears to have bleeding gums for a couple of months, she will have a dentist visit, if no issues, she will need to discuss with Cardiology about it again. (3) Anemia She is slightly more anemic, Hgb >11, would monitor. 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 Dictated By: Margarito Buenrostro MD DD/ Signed By: <Electronically signed by Margarito Buenrostro MD> 03/19/20 [address] [facility] Work Phone: [phone] Progress note Author Margarito Buenrostro [facility] January 09, 2020 9:15am Note Date/Time January 09, 2020 9:12am [facility] at [address] [address] Hem/Onc Follow Up Note - OP Signed Patient: Hailee Trivedi MR#: [id number] : 1940 Acct:[id number] Age/Sex: 79 / F Type: REG RCR Copies to: Curt Clark MD~ Subjective Date/Time of Service: Date of Service: 01/09/2020 Time of Service: 09:11 Chief Complaint: Follow up appt prior to treatment in and out of A-fib has kidney stone HPI: Hailee presents for routine follow up; prior to Daratumumab. She is overall stable, she had a visit to ER due to A-fib, now doing better. She has no specific complaints today. - Summary of Therapies Summary of Therapies: 1. Velcade/dexamethasone induction regimen with dexamethasone 20 mg started 07/08/2014, kappa light chain decreased to 833 and 33 from 7000 in October 2014. 2. Tried Revlimid in September 2014, discontinued 11/02/2014 due to suspicion that it may cause itching. 3. Velcade 1.3 mg/m sq weekly along with dexamethasone 6 mg p.o. weekly, light chain improved from 833 to 570 as of 04/18/2015, then increased again in May 2015. 4. Velcade induction regimen restarted with dexamethasone 20 mg p.o. weekly on 07/01 patient experienced extreme fatigue due to dehydration from hyperglycemia and diarrhea. 5. Velcade 1.3 mg with dexamethasone 6 mg and cyclophosphamide 300 mg IV [id number]/15/2015, developed grade 2 anemia, fatigue and grade 3 diarrhea. Cyclophosphamide was switched to p.o. 50 mg three weeks on, one week off on 09/26/2015, however, free kappa light chain went down to 1179 on 10/24/2015. 6. Carfilzomib 20 mg/m2 on days 1,2,8,9,15,16 of a 21 day cycle, started on 11/04/2015-02/24/2016. Discontinued due to disease progression. -Dose escalated to 27mg/m2 in cycle 2, on 12/17/2015. Dose reduced to 20mg/m2 on cycle 4 day 15 due to grade 2 fatigue. CURRENT THERAPY 1. Daratumumab 03/17/2016-. -03/17/16-05/05/16, weekly. -05/19/16-08/25/16, biweekly. -09/22/16-, every 4 weeks. 09/21/2017 held due to dizziness, resumed 12/21/2017. Skip treatment on 12/13/18 per patient request. -07/2019-, every 6 week per patient request. 2. VitB12 injections, monthly, switched to oral in 04/2019. Subjective/ROS - Narrative: CONSTITUTIONAL: Gaining weight, no fever, chills. Weakness in legs per HPI CARDIOVASCULAR: No chest pain, chest pressure or chest discomfort. No palpitations or edema. RESPIRATORY: No shortness of breath, cough or hemoptysis. GASTROINTESTINAL: No dysphagia, nausea, vomiting or diarrhea. No abdominal pain,melena, hematochezia. GENITOURINARY: No dysuria, urinary frequency or urgency. NEUROLOGICAL: Positive for dizziness (chronic), and forgetfulness, Positive for double vision on extreme lateral gaze, left leg weakness. MUSCULOSKELETAL: No pain PMFSH - Medical History Medical History: Medical History (Last Reviewed 01/08/20 @ 03:01 by Gricel Loredo RN) CKD (chronic kidney disease) CVA (cerebral vascular accident) Diabetes HTN (hypertension) History of hysterectomy Hyperlipidemia Multiple myeloma - Surgical History Surgical History: Surgical History (Last Updated 01/08/20 @ 03:01 by Gricel Loredo RN) History of cholecystectomy History of hemorrhoidectomy History of renal stent - Social History Smoking Status: Never smoker Substance Use Type: None Home Medications & Allergies Allergies lenalidomide [From Revlimid] Allergy (Mild, Verified 01/08/20 02:59) Rash oxybutynin Allergy (Verified 01/08/20 02:59) Rash pregabalin [From Lyrica] Allergy (Verified 01/08/20 02:59) double vision Home Medications Fish Oil 1,200 cap PO BID 07/14/17 [History Confirmed 01/09/20] insulin lispro [Humalog KwikPen Insulin] See Protocol SUB-Q ACHS PRN 07/14/17 [History Confirmed 01/09/20] sodium bicarbonate 650 mg PO BID 07/14/17 [History Confirmed 01/09/20] Humulin N NPH Insulin KwikPen 12 unit SUBCUT QPM 08/10/18 [History Confirmed 01/09/20] cholecalciferol (vitamin D3) [Vitamin D3] 1,000 unit PO DAILY 08/10/18 [History Confirmed 01/09/20] atorvastatin 40 mg PO DAILY 08/23/18 [History Confirmed 01/09/20] amlodipine 5 mg PO DAILY 09/20/18 [History Confirmed 01/09/20] aspirin 81 mg PO DAILY 10/18/18 [History Confirmed 01/09/20] cyanocobalamin (vitamin B-12) 1,000 mcg PO DAILY 05/02/19 [History Confirmed 01/09/20] acyclovir 400 mg PO BID 11/07/19 [History Confirmed 01/09/20] carvedilol [Coreg] 12.5 mg PO BID 30 Days #60 tab 11/07/19 [Rx Confirmed 01/09/20] rivaroxaban [Xarelto] 15 mg PO DAILY 30 Days #30 tab 11/07/19 [Rx Confirmed 01/09/20] cephalexin 250 mg PO DAILY 01/08/20 [History Confirmed 01/09/20] linagliptin [Tradjenta] 5 mg PO DAILY 01/08/20 [History Confirmed 01/09/20] Objective - Height/Weight Height/Weight: Height 5 ft 6 in Weight 86.6 kg BSA for Today's Weight 2.01 - Vital Signs Vital Signs: 01/09/20 08:36 Temperature 98 F Pulse Rate [Left Brachial] 73 Respiratory Rate 20 Blood Pressure [Right Arm] 124/63 02 Sat by Pulse Oximetry 97 - Pain Generalized Back Pain Intensity: 0 Left Arm Pain Intensity: 0 Generalized Teeth Pain Intensity: 0 - Emotional Needs Assessment Emotional Needs Assessment: Emotional Needs Identified? Yes Distress Screening Total 3 - ECOG Performance Status ECOG Score: 1 Physical Exam Narrative: GENERAL APPEARANCE: In no acute distress. Obese. She is very alert, oriented and appropriate. HEENT: Moist and clear, no oral thrush. LUNGS: Clear to auscultation bilaterally, no rales, rhonchi, or crackles. CARDIOVASCULAR: S1 and S2, irregular rate and rhythm. ABDOMEN: Soft, nontender, bowel sounds normal. No hepatosplenomegaly. No mass palpated. EXTREMITIES: Trace edema . NEUROLOGIC: Grossly intact, gait was slow, muscle strength 5/5. Results - Labs Labs: Diagram of Most Recent CBC and CMP 01/03/20 09:10 07/18/19 08:54 Labs - Last 7 Days 01/03/20 09:10: WBC 6.7, Corrected WBC 6.7, RBC 3.84, Hgb 12.4, Hct 37.2, MCV 97.1, MCH 32.3, MCHC 33.3, RDW 13.7, Plt Count 172, MPV 9.7, Neut % (Auto) 64.3,Lymph % (Auto) 25.2, [place] % (Auto) 7.0, Eos % (Auto) 3.0, Baso % (Auto) 0.5, Neut # (Auto) 4.3, Lymph # (Auto) 1.7, [place] # (Auto) 0.5, Eos # (Auto) 0.2, Baso# (Auto) 0.0, Nucleated RBC % (auto) 0.0 01/03/20 09:10: Free [place] LC, Quant 17.3, Free Lambda LC, Quant 10.2, Free [place]/Lambda Ratio 1.70 H Assessment and Plan (1) Multiple myeloma in remission kappa light chain multiple myeloma, refractory to Velcade dexamethasone and cyclophosphamide, could not tolerate Revlimid, progressed on Carfilzomib. -Ongoing brisk response to single agent Daratumumab. No overt adverse effects, the dizziness is not related to Daratumumab. -She prefers to space out her treatment to every 6 weeks, we discussed that no data to guide the decision at this point, but it is reasonable to do as she has a dramatic and sustained response. -Labs adequate to treat, [place] light chain level slightly trend upwards, but still stable, will proceed to Daratumumab today, will see her back in 6 weeks, plan to repeat K/L light chains in 5 weeks ahead of time, if [place] light chain continue to go up, plan to resume monthly schedule. She knows to call me if questions or concerns arise. (2) B12 deficiency anemia Antibodies for parietal cells and intrinsic factor were normal. -Switch to oral Vit B12 in 04/2019, repeat B12 level in 07/2019 was 900. (3) Atrial fibrillation Plavix has been changed to Xarelto by Cardiology -Rate controlled. 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 Dictated By: Margarito Buenrostro MD DD/ 0 Signed By: <Electronically signed by Margarito Buenrostro MD> 01/09/20914 [facility] Work Phone: [phone] Progress note Author Margarito Buenrostro [facility] November 28, 2019 10:50am Note Date/Time November 28, 2019 9 :43am [facility] at [place] [id number] Hem/Onc Follow Up Note - OP Signed Patient: Hailee Trivedi MR#: [id number] : 1940 Acct:[id number] Age/Sex: 79 / F Type: REG RCR Copies to: Curt Clark MD~ Subjective Date/Time of Service: Date of Service: 11/28/2019 Time of Service: 09:43 Chief Complaint: Follow up appt prior to treatment HPI: Hailee presents for routine follow up; prior to Daratumumab. She is overall stable, her plavix has been changed to Xarelto recently by Cardiology, she noticed some blood on her pillow from time to time. She has no GI bleeding. She becomes more forgetful. Otherwise she has no specific complaints. - Summary of Therapies Summary of Therapies: 1. Velcade/dexamethasone induction regimen with dexamethasone 20 mg started 07/08/2014, kappa light chain decreased to 833 and 33 from 7000 in October 2014. 2. Tried Revlimid in September 2014, discontinued 11/02/2014 due to suspicion that it may cause itching. 3. Velcade 1.3 mg/m sq weekly along with dexamethasone 6 mg p.o. weekly, light chain improved from 833 to 570 as of 04/18/2015, then increased again in May 2015. 4. Velcade induction regimen restarted with dexamethasone 20 mg p.o. weekly on 07/01 patient experienced extreme fatigue due to dehydration from hyperglycemia and diarrhea. 5. Velcade 1.3 mg with dexamethasone 6 mg and cyclophosphamide 300 mg IV [id number]/15/2015, developed grade 2 anemia, fatigue and grade 3 diarrhea. Cyclophosphamide was switched to p.o. 50 mg three weeks on, one week off on 09/26/2015, however, free kappa light chain went down to 1179 on 10/24/2015. 6. Carfilzomib 20 mg/m2 on days 1,2,8,9,15,16 of a 21 day cycle, started on 11/04/2015-02/24/2016. Discontinued due to disease progression. -Dose escalated to 27mg/m2 in cycle 2, on 12/17/2015. Dose reduced to 20mg/m2 on cycle 4 day 15 due to grade 2 fatigue. CURRENT THERAPY 1. Daratumumab 03/17/2016-. -03/17/16-05/05/16, weekly. -05/19/16-08/25/16, biweekly. -09/22/16-, every 4 weeks. 09/21/2017 held due to dizziness, resumed 12/21/2017. Skip treatment on 12/13/18 per patient request. -07/2019-, every 6 week per patient request. 2. VitB12 injections, monthly, switched to oral in 04/2019. Subjective/ROS - Narrative: CONSTITUTIONAL: Gaining weight, no fever, chills. Weakness in legs per HPI CARDIOVASCULAR: No chest pain, chest pressure or chest discomfort. No palpitations or edema. RESPIRATORY: No shortness of breath, cough or hemoptysis. GASTROINTESTINAL: No dysphagia, nausea, vomiting or diarrhea. No abdominal pain,melena, hematochezia. GENITOURINARY: No dysuria, urinary frequency or urgency. NEUROLOGICAL: Positive for dizziness (chronic), and forgetfulness, Positive for double vision on extreme lateral gaze, left leg weakness. MUSCULOSKELETAL: No pain PMFSH - Medical History Medical History: Medical History (Last Updated 11/07/19 @ 13:33 by Carol Aldrich RN) CKD (chronic kidney disease) CVA (cerebral vascular accident) Diabetes HTN (hypertension) History of hysterectomy Hyperlipidemia Multiple myeloma - Surgical History Surgical History: Surgical History (Last Updated 11/07/19 @ 13:33 by Carol Aldrich RN) History of cholecystectomy History of hemorrhoidectomy - Social History Smoking Status: Never smoker Substance Use Type: None Home Medications & Allergies Allergies lenalidomide [From Revlimid] Allergy (Mild, Verified 11/07/19 13:28) Rash oxybutynin Allergy (Verified 11/07/19 13:28) Rash pregabalin [From Lyrica] Allergy (Verified 11/07/19 13:28) double vision Home Medications Fish Oil 2 cap PO BID 07/14/17 [History Confirmed 11/28/19] insulin lispro [Humalog KwikPen Insulin] See Protocol SUB-Q ACHS PRN 07/14/17 [History Confirmed 11/28/19] sodium bicarbonate 650 mg PO BID 07/14/17 [History Confirmed 11/28/19] Humulin N NPH Insulin KwikPen 10 unit SUBCUT QPM 08/10/18 [History Confirmed 11/28/19] cholecalciferol (vitamin D3) [Vitamin D3] 5,000 unit PO DAILY 08/10/18 [History Confirmed 11/28/19] atorvastatin 40 mg PO DAILY 08/23/18 [History Confirmed 11/28/19] amlodipine 10 mg PO DAILY 09/20/18 [History Confirmed 11/28/19] aspirin 81 mg PO DAILY 10/18/18 [History Confirmed 11/28/19] cyanocobalamin (vitamin B-12) 1,000 mcg PO DAILY 05/02/19 [History Confirmed 11/28/19] acyclovir 400 mg PO BID 11/07/19 [History Confirmed 11/28/19] carvedilol [Coreg] 12.5 mg PO BID 30 Days #60 tab 11/07/19 [Rx Confirmed 11/28/19] rivaroxaban [Xarelto] 15 mg PO DAILY 30 Days #30 tab 11/07/19 [Rx Confirmed 11/28/19] Objective - Height/Weight Height/Weight: Height 5 ft 6 in Weight 86.6 kg BSA for Today's Weight 2.00 - Vital Signs Vital Signs: 11/28/19 09:10 Temperature 98 F Pulse Rate [Left Brachial] 71 Respiratory Rate 20 Blood Pressure [Right Arm] 122/61 02 Sat by Pulse Oximetry 98 - Pain Generalized Back Pain Intensity: 0 Left Arm Pain Intensity: 0 Generalized Teeth Pain Intensity: 0 - Emotional Needs Assessment Emotional Needs Assessment: Emotional Needs Identified? Yes Distress Screening Total 3 - ECOG Performance Status ECOG Score: 1 Physical Exam Narrative: GENERAL APPEARANCE: In no acute distress. Obese. She is very alert, oriented and appropriate. HEENT: Moist and clear, no oral thrush. LUNGS: Clear to auscultation bilaterally, no rales, rhonchi, or crackles. CARDIOVASCULAR: S1 and S2, regular rate and rhythm, no murmurs, gallops, rubs. ABDOMEN: Soft, nontender, bowel sounds normal. No hepatosplenomegaly. No mass palpated. EXTREMITIES: Trace edema . NEUROLOGIC: Grossly intact, gait was slow, muscle strength 5/5. Results - Labs Labs: Diagram of Most Recent CBC and CMP 11/20/19 14:30 07/18/19 08:54 Labs - Last 7 Days 11/20/19 14:30: Free [place] LC, Quant 14.5, Free Lambda LC, Quant 7.7, Free [place]/Lambda Ratio 1.88 H Assessment and Plan (1) Multiple myeloma in remission kappa light chain multiple myeloma, refractory to Velcade dexamethasone and cyclophosphamide, could not tolerate Revlimid, progressed on Carfilzomib. -Ongoing brisk response to single agent Daratumumab. No overt adverse effects, the dizziness is not related to Daratumumab. -She prefers to space out her treatment to every 6 weeks, we discussed that no data to guide the decision at this point, but it is reasonable to do as she has a dramatic and sustained response. -Labs adequate to treat, [place] light chain level slightly trend upwards, will proceed to Daratumumab today, will see her back in 6 weeks, plan to repeat K/L light chains in 5 weeks ahead of time, if [place] light chain continue to go up, plan to resume monthly schedule. She knows to call me if questions or concerns arise. (2) B12 deficiency anemia Antibodies for parietal cells and intrinsic factor were normal. -Switch to oral Vit B12 in 04/2019, repeat B12 level in 07/2019 was 900. (3) Steroid-induced hyperglycemia (4) 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 (5) Transient left leg weakness (6) Hearing loss (7) HTN (hypertension) Qualifiers: Hypertension type: essential hypertension Qualified Code(s): I10 - Essential (primary) hypertension - Chemo Plan Goal of Treatment: Palliative - Time with Patient Coordination of Care & Counseling Time: Greater than 50% of time spent with patient was for coordination of care (as documented) and [id number] counseling of patient and/or family. Dictated By: Margarito Buenrostro MD DD/ 0943 Signed By: <Electronically signed by Margarito Buenrostro MD> 11/28/19 1050 [facility] Work Phone: [phone] 549-897412-04-2019 Progress note Author Margarito Buenrostro [facility] October 17, 2019 9:37am Note Date/Time October 17, 2019 9 :30am [facility] at [address] [address] Hem/Onc Follow Up Note - OP Signed Patient: Hailee Trivedi MR#: [id number] : 1940 Acct:[id number] Age/Sex: 79 / F Type: REG RCR Copies to: Curt Clark MD~ Subjective Date/Time of Service: Date of Service: 10/17/2019 Time of Service: 09:26 Chief Complaint: Follow up appt prior to treatment doing well HPI: Hailee presents for routine follow up; prior to Daratumumab. Patient reports left leg sudden onset weakness last Tuesday while she was drawing labs at [facility]. She elected to not stay. This has been getting better. She thinks is another episode of mini stroke, and she thinks they are probably nothing to do about it she will call neurology for appointment. Otherwise she has no specific complaints. - Summary of Therapies Summary of Therapies: 1. Velcade/dexamethasone induction regimen with dexamethasone 20 mg started 07/08/2014, kappa light chain decreased to 833 and 33 from 7000 in October 2014. 2. Tried Revlimid in September 2014, discontinued 11/02/2014 due to suspicion that it may cause itching. 3. Velcade 1.3 mg/m sq weekly along with dexamethasone 6 mg p.o. weekly, light chain improved from 833 to 570 as of 04/18/2015, then increased again in May 2015. 4. Velcade induction regimen restarted with dexamethasone 20 mg p.o. weekly on 07/01 patient experienced extreme fatigue due to dehydration from hyperglycemia and diarrhea. 5. Velcade 1.3 mg with dexamethasone 6 mg and cyclophosphamide 300 mg IV [id number], developed grade 2 anemia, fatigue and grade 3 diarrhea. Cyclophosphamide was switched to p.o. 50 mg three weeks on, one week off on 09/26/2015, however, free kappa light chain went down to 1179 on 10/24/2015. 6. Carfilzomib 20 mg/m2 on days 1,2,8,9,15,16 of a 21 day cycle, started on 11/04/2015-02/24/2016. Discontinued due to disease progression. -Dose escalated to 27mg/m2 in cycle 2, on 12/17/2015. Dose reduced to 20mg/m2 on cycle 4 day 15 due to grade 2 fatigue. CURRENT THERAPY 1. Daratumumab 03/17/2016-. -03/17/16-05/05/16, weekly. -05/19/16-08/25/16, biweekly. -09/22/16-, every 4 weeks. 09/21/2017 held due to dizziness, resumed 12/21/2017. Skip treatment on 12/13/18 per patient request. -07/2019-, every 6 week per patient request. 2. VitB12 injections, monthly, switched to oral in 04/2019. Subjective/ROS - Narrative: CONSTITUTIONAL: Gaining weight, no fever, chills. Weakness in legs per HPI CARDIOVASCULAR: No chest pain, chest pressure or chest discomfort. No palpitations or edema. RESPIRATORY: No shortness of breath, cough or hemoptysis. GASTROINTESTINAL: No dysphagia, nausea, vomiting or diarrhea. No abdominal pain,melena, hematochezia. GENITOURINARY: No dysuria, urinary frequency or urgency. NEUROLOGICAL: Positive for dizziness (chronic), and forgetfulness, Positive for double vision on extreme lateral gaze, left leg weakness. MUSCULOSKELETAL: No pain PMFSH - Social History Smoking Status: Never smoker Substance Use Type: None Home Medications & Allergies Allergies lenalidomide [From Revlimid] Allergy (Mild, Verified 04/04/19 09:02) Rash oxybutynin Allergy (Verified 04/04/19 09:02) Rash pregabalin [From Lyrica] Allergy (Verified 04/04/19 09:02) double vision Home Medications Fish Oil 2 cap PO BID 07/14/17 [History Confirmed 10/17/19] carvedilol 1 tab PO BID 07/14/17 [History Confirmed 10/17/19] insulin lispro [Humalog KwikPen Insulin] 1 unit SUB-Q DIRECTED PRN 07/14/17 [History Confirmed 10/17/19] sodium bicarbonate See Rx Instructions .ROUTE .COMPLEX 07/14/17 [History Confirmed 10/17/19] Humulin N NPH Insulin KwikPen 10 unit SUBCUT QPM 08/10/18 [History Confirmed 10/17/19] cholecalciferol (vitamin D3) [Vitamin D3] 5,000 unit PO DAILY 08/10/18 [History Confirmed 10/17/19] atorvastatin 40 mg PO DAILY 08/23/18 [History Confirmed 10/17/19] clopidogrel [Plavix] 75 mg PO DAILY 08/23/18 [History Confirmed 10/17/19] amlodipine 10 mg PO DAILY 09/20/18 [History Confirmed 10/17/19] aspirin 81 mg PO DAILY 10/18/18 [History Confirmed 10/17/19] acyclovir 1 tab PO BID #180 tab 04/30/19 [Rx Confirmed 10/17/19] cyanocobalamin (vitamin B-12) 1,000 mcg PO DAILY 05/02/19 [History Confirmed 10/17/19] Objective - Height/Weight Height/Weight: Height 5 ft 6 in Weight 86.1 kg BSA for Today's Weight 2.01 - Vital Signs Vital Signs: 10/17/19 09:00 Temperature 97.6 F Pulse Rate [Left Brachial] 64 Respiratory Rate 20 Blood Pressure [Right Arm] 138/63 02 Sat by Pulse Oximetry 97 - Pain Generalized Back Pain Intensity: 0 Left Arm Pain Intensity: 0 Generalized Teeth Pain Intensity: 0 - Emotional Needs Assessment Emotional Needs Assessment: Emotional Needs Identified? No Distress Screening Total 0 - ECOG Performance Status ECOG Score: 1 Physical Exam Narrative: GENERAL APPEARANCE: In no acute distress. Obese. She is very alert, oriented and appropriate. HEENT: Moist and clear, no oral thrush. LUNGS: Clear to auscultation bilaterally, no rales, rhonchi, or crackles. CARDIOVASCULAR: S1 and S2, regular rate and rhythm, no murmurs, gallops, rubs. ABDOMEN: Soft, nontender, bowel sounds normal. No hepatosplenomegaly. No mass palpated. EXTREMITIES: Trace edema . NEUROLOGIC: Grossly intact, gait was slow, muscle strength 5/5. Results - Labs Outside Labs: 10/10/19: WBC 7.0, Hgb 13.0, Plt 220 Cr. 2.71, Alb 3.5 Assessment and Plan (1) Multiple myeloma in remission kappa light chain multiple myeloma, refractory to Velcade dexamethasone and cyclophosphamide, could not tolerate Revlimid, progressed on Carfilzomib. -Ongoing brisk response to single agent Daratumumab. No overt adverse effects, the dizziness is not related to Daratumumab. -She prefers to space out her treatment to every 6 weeks, we discussed that no data to guide the decision at this point, but it is reasonable to do as she has a dramatic and sustained response. -Labs adequate to treat, will proceed to Daratumumab today, will see her back in6 weeks, plan to repeat K/L light chains in 6 weeks ahead of time. -She knows to call me if questions or concerns arise. (2) Steroid-induced hyperglycemia DM-II, hyperglycemia due to steroids. She was taking insulin 28 units on treatment days, however, HbA1c continue to rise ( 8.0 from 7.4) -Solu-Medrol discontinued in 02/2019, no reactions. (3) B12 deficiency anemia Antibodies for parietal cells and intrinsic factor were normal. -Switch to oral Vit B12 in 04/2019, repeat B12 level in 07/2019 was 900. 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 -Last dose was 04/19/2018, should be ok if she has invasive dental procedure planned (need teeth to be pulled). (5) Transient left leg weakness Likely due to a TIA, improving. -Her vitals are stable today, heart rate regular, she just had a repeat echocardiogram, exam benign today. She has been taking aspirin, Plavix, and statins, BP normal. -She will follow-up with neurology for further assessment and plan. (6) Hearing loss (7) HTN (hypertension) Qualifiers: Hypertension type: essential hypertension Qualified Code(s): I10 - Essential (primary) hypertension - Chemo Plan Goal of Treatment: Palliative - Time with Patient Total Time Spent with Patient: 30 min Coordination of Care & Counseling Time: Greater than 50% of time spent with patient was for coordination of care (as documented) and [id number] counseling of patient and/or family. Dictated By: Margarito Buenrostro MD DD/ 0926 Signed By: <Electronically signed by Margarito Buenrostro MD> 10/17/19 0937 [facility] Work Phone: [phone] Progress note Author Margarito Buenrostro [facility] July 25, 2019 8:31am Note Date/Time July 25, 2019 8:30am [facility] at [address] [address] Hem/Onc Follow Up Note - OP Signed Patient: Hailee Trivedi MR#: [id number] : 1940 Acct:[id number] Age/Sex: 79 / F Type: REG RCR Copies to: Curt Clark MD~ Subjective Date/Time of Service: Date of Service: 07/25/2019 Time of Service: 08:30 Chief Complaint: Follow up appt prior to treatment HPI: Hailee presents for routine follow up; prior to Daratumumab. Patient reports doing fine, no specific complaints. - Summary of Therapies Summary of Therapies: 1. Velcade/dexamethasone induction regimen with dexamethasone 20 mg started 07/08/2014, kappa light chain decreased to 833 and 33 from 7000 in October 2014. 2. Tried Revlimid in September 2014, discontinued 11/02/2014 due to suspicion that it may cause itching. 3. Velcade 1.3 mg/m sq weekly along with dexamethasone 6 mg p.o. weekly, light chain improved from 833 to 570 as of 04/18/2015, then increased again in May 2015. 4. Velcade induction regimen restarted with dexamethasone 20 mg p.o. weekly on 07/01 patient experienced extreme fatigue due to dehydration from hyperglycemia and diarrhea. 5. Velcade 1.3 mg with dexamethasone 6 mg and cyclophosphamide 300 mg IV [id number], developed grade 2 anemia, fatigue and grade 3 diarrhea. Cyclophosphamide was switched to p.o. 50 mg three weeks on, one week off on 09/26/2015, however, free kappa light chain went down to 1179 on 10/24/2015. 6. Carfilzomib 20 mg/m2 on days 1,2,8,9,15,16 of a 21 day cycle, started on 11/04/2015-02/24/2016. Discontinued due to disease progression. -Dose escalated to 27mg/m2 in cycle 2, on 12/17/2015. Dose reduced to 20mg/m2 on cycle 4 day 15 due to grade 2 fatigue. CURRENT THERAPY 1. Daratumumab 03/17/2016-. -03/17/16-05/05/16, weekly. -05/19/16-08/25/16, biweekly. -09/22/16-, every 4 weeks. 09/21/2017 held due to dizziness, resumed 12/21/2017. Skip treatment on 12/13/18 per patient request. -07/2019-, every 6 week per patient request. 2. VitB12 injections, monthly, switched to oral in 04/2019. Subjective/ROS - Narrative: CONSTITUTIONAL: Gaining weight, no fever, chills. Weakness in legs per HPI CARDIOVASCULAR: No chest pain, chest pressure or chest discomfort. No palpitations or edema. RESPIRATORY: No shortness of breath, cough or hemoptysis. GASTROINTESTINAL: No dysphagia, nausea, vomiting or diarrhea. No abdominal pain,melena, hematochezia. GENITOURINARY: No dysuria, urinary frequency or urgency. NEUROLOGICAL: Positive for dizziness (chronic), and forgetfulness, Positive for double vision on extreme lateral gaze MUSCULOSKELETAL: No pain PMFSH - Social History Smoking Status: Never smoker Substance Use Type: None Home Medications & Allergies Allergies lenalidomide [From Revlimid] Allergy (Mild, Verified 04/04/19 09:02) Rash oxybutynin Allergy (Verified 04/04/19 09:02) Rash pregabalin [From Lyrica] Allergy (Verified 04/04/19 09:02) double vision Home Medications Fish Oil 2 cap PO BID 07/14/17 [History Confirmed 07/25/19] carvedilol 1 tab PO BID 07/14/17 [History Confirmed 07/25/19] insulin lispro [Humalog KwikPen Insulin] 1 unit SUB-Q DIRECTED PRN 07/14/17 [History Confirmed 07/25/19] sodium bicarbonate See Rx Instructions .ROUTE .COMPLEX 07/14/17 [History Confirmed 07/25/19] Humulin N NPH Insulin KwikPen 10 unit SUBCUT QPM 08/10/18 [History Confirmed 07/25/19] cholecalciferol (vitamin D3) [Vitamin D3] 5,000 unit PO DAILY 08/10/18 [History Confirmed 07/25/19] atorvastatin 40 mg PO DAILY 08/23/18 [History Confirmed 07/25/19] clopidogrel [Plavix] 75 mg PO DAILY 08/23/18 [History Confirmed 07/25/19] amlodipine 10 mg PO DAILY 09/20/18 [History Confirmed 07/25/19] aspirin 81 mg PO DAILY 10/18/18 [History Confirmed 07/25/19] acyclovir 1 tab PO BID #180 tab 04/30/19 [Rx Confirmed 07/25/19] cyanocobalamin (vitamin B-12) 1,000 mcg PO DAILY 05/02/19 [History Confirmed 07/25/19] Objective - Height/Weight Height/Weight: Height 5 ft 6 in Weight 87.7 kg BSA for Today's Weight 2.02 - Vital Signs Vital Signs: 07/25/19 08:12 Temperature 98 F Pulse Rate [Left Brachial] 66 Respiratory Rate 20 Blood Pressure [Right Arm] 141/68 H 02 Sat by Pulse Oximetry 97 - Pain Generalized Back Pain Intensity: 0 Left Arm Pain Intensity: 0 Generalized Teeth Pain Intensity: 0 - Emotional Needs Assessment Emotional Needs Assessment: Emotional Needs Identified? No Distress Screening Total 0 - ECOG Performance Status ECOG Score: 1 Physical Exam Narrative: GENERAL APPEARANCE: In no acute distress. Obese. She is very alert, oriented and appropriate. HEENT: Moist and clear, no oral thrush. LUNGS: Clear to auscultation bilaterally, no rales, rhonchi, or crackles. CARDIOVASCULAR: S1 and S2, regular rate and rhythm, no murmurs, gallops, rubs. ABDOMEN: Soft, nontender, bowel sounds normal. No hepatosplenomegaly. No mass palpated. EXTREMITIES: Trace edema . NEUROLOGIC: Grossly intact Results - Labs Labs: Diagram of Most Recent CBC and CMP 07/18/19 08:54 07/18/19 08:54 Labs - Last 7 Days 07/18/19 08:54: Free [place] LC, Quant 16.4, Free Lambda LC, Quant 10.9, Free [place]/Lambda Ratio 1.50 07/18/19 08:54: PHA Creatinine Clear [id number], Sodium 139, Potassium 4.6, Chloride 110, Carbon Dioxide 19.6 L, BUN 26 H, Creatinine 2.25 H, Est GFR ( Amer) 26, Est GFR (Non-Af Amer) 21, Glucose 146 H, Calcium 8.8, Total Bilirubin 0.5, AST 18, ALT 14, Alkaline Phosphatase 93 H, Total Protein 5.9 L, Albumin 3.6, Globulin 2.3, Albumin/Globulin Ratio 1.6, Vitamin B12 900 07/18/19 08:54: WBC 6.5, Corrected WBC 6.5, RBC 4.03, Hgb 13.0, Hct 38.6, MCV 95.7, MCH 32.4, MCHC 33.8, RDW 13.6, Plt Count 181, MPV 10.1, Neut % (Auto) 64.4, Lymph % (Auto) 27.6, [place] % (Auto) 6.8, Eos % (Auto) 0.7, Baso % (Auto) 0.5, Neut # (Auto) 4.2, Lymph # (Auto) 1.8, [place] # (Auto) 0.4, Eos # (Auto) 0.0,Baso # (Auto) 0.0, Nucleated RBC % (auto) 0.0 Assessment and Plan (1) Multiple myeloma in remission kappa light chain multiple myeloma, refractory to Velcade dexamethasone and cyclophosphamide, could not tolerate Revlimid, progressed on Carfilzomib. -Ongoing brisk response to single agent Daratumumab. No overt adverse effects, the dizziness is not related to Daratumumab. -She prefers to space out her treatment to every 6 weeks, we discussed that no data to guide the decision at this point, but it is reasonable to do as she has a dramatic sustained response, order moved to 07/25/19. -Labs adequate to treat, will proceed to Daratumumab today, will see her back in6 weeks, plan to repeat K/L light chains in 6 weeks ahead of time. -She knows to call me if questions or concerns arise. (2) Steroid-induced hyperglycemia DM-II, hyperglycemia due to steroids. She was taking insulin 28 units on treatment days, however, HbA1c continue to rise ( 8.0 from 7.4) -Solu-Medrol discontinued in 02/2019, no reactions. (3) B12 deficiency anemia -Antibodies for parietal cells and intrinsic factor were normal. -Switch to oral Vit B12 in 04/2019, repeat B12 level in 07/2019 was 900. (4) Weakness (5) Dizziness (6) 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 (7) Left facial numbness (8) Hearing loss (9) HTN (hypertension) Qualifiers: Hypertension type: essential hypertension Qualified Code(s): I10 - Essential (primary) hypertension - Chemo Plan Goal of Treatment: Palliative - Time with Patient Coordination of Care & Counseling Time: Greater than 50% of time spent with patient was for coordination of care (as documented) and [id number] counseling of patient and/or family. Dictated By: Margarito Buenrostro MD DD/ 9 Signed By: <Electronically signed by Margarito Buenrostro MD> 07/25/[address] [facility] Work Phone: [phone] Progress note Author Margarito Buenrostro [facility] June 13, 2019 8:37am Note Date/Time June 13, 2019 8:34 am [facility] [place] [address] Hem/Onc Follow Up Note - OP Signed Patient: Hailee Trivedi MR#: [id number] : 1940 Acct:[id number] Age/Sex: 79 / F Type: REG RCR Copies to: Curt Clark MD~ Subjective Date/Time of Service: Date of Service: 06/13/2019 Time of Service: 08:34 Chief Complaint: Follow up appt prior to treatment - Diagnosis DIAGNOSIS: DIAGNOSIS: 1. [place] light chain multiple myeloma diagnosed by Dr. Motley by free light chain assay showing 7000 mg kappa, creatinine up to four and bone marrow biopsy in 07/05/2014 reveals 30% of cellularity with 50% involvement, of cyclin D1 positive, normal FISH and cytogenetics. -ISS stage III, beta-2 and microglobulin 3.8 on 07/05/2014, albumin 3.5. -Bone survey showed lucent areas in the calvarium and distal right humerus. -Autologous stem cell transplantation evaluated by Dr. Yossi Bradshaw, not a candidate. 2. Iron deficiency anemia, received IV iron in July 2014. 3. Developed hypertensive emergency after taken off antihypertensive drugs due to low BP (chest pain with BP 244/112) on 11/20/2015, CT angiogram did not show aortic dissection and echocardiogram showed LVEF of 60%, stress test negative. Troponin upon discharge was 0.17. CK-MB was 2.5. 4. Severe VitB12 deficiency diagnosed 12/2015, presentation was dizziness. PAST MEDICAL HISTORY: HTN, DM-II, CKD-3, CVA 2017. SOCIAL HISTORY: Lives with in [place]. HPI: Hailee presents for routine follow up; prior to Daratumumab. Patient reports doing fine, no specific complaints. - Summary of Therapies Summary of Therapies: 1. Velcade/dexamethasone induction regimen with dexamethasone 20 mg started 07/08/2014, kappa light chain decreased to 833 and 33 from 7000 in October 2014. 2. Tried Revlimid in September 2014, discontinued 11/02/2014 due to suspicion that it may cause itching. 3. Velcade 1.3 mg/m sq weekly along with dexamethasone 6 mg p.o. weekly, light chain improved from 833 to 570 as of 04/18/2015, then increased again in May 2015. 4. Velcade induction regimen restarted with dexamethasone 20 mg p.o. weekly on 07/01 patient experienced extreme fatigue due to dehydration from hyperglycemia and diarrhea. 5. Velcade 1.3 mg with dexamethasone 6 mg and cyclophosphamide 300 mg IV [id number]/2015, developed grade 2 anemia, fatigue and grade 3 diarrhea. Cyclophosphamide was switched to p.o. 50 mg three weeks on, one week off on 09/26/2015, however, free kappa light chain went down to 1179 on 10/24/2015. 6. Carfilzomib 20 mg/m2 on days 1,2,8,9,15,16 of a 21 day cycle, started on 11/04/2015-02/24/2016. Discontinued due to disease progression. -Dose escalated to 27mg/m2 in cycle 2, on 12/17/2015. Dose reduced to 20mg/m2 on cycle 4 day 15 due to grade 2 fatigue. CURRENT THERAPY 1. Daratumumab 03/17/2016-. -03/17/16-05/05/16, weekly. -05/19/16-08/25/16, biweekly. -09/22/16-, every 4 weeks. 09/21/2017 held due to dizziness, resumed 12/21/2017. Skip treatment on 12/13/18 per patient request. 2. VitB12 injections, monthly, switched to oral in 04/2019. Subjective/ROS - Narrative: CONSTITUTIONAL: Gaining weight, no fever, chills. Weakness in legs per HPI CARDIOVASCULAR: No chest pain, chest pressure or chest discomfort. No palpitations or edema. RESPIRATORY: No shortness of breath, cough or hemoptysis. GASTROINTESTINAL: No dysphagia, nausea, vomiting or diarrhea. No abdominal pain,melena, hematochezia. GENITOURINARY: No dysuria, urinary frequency or urgency. NEUROLOGICAL: Positive for dizziness (chronic), and forgetfulness, Positive for double vision on extreme lateral gaze MUSCULOSKELETAL: No pain PMFSH - Social History Smoking Status: Never smoker Substance Use Type: None Home Medications & Allergies Allergies lenalidomide [From Revlimid] Allergy (Mild, Verified 04/04/19 09:02) Rash oxybutynin Allergy (Verified 04/04/19 09:02) Rash pregabalin [From Lyrica] Allergy (Verified 04/04/19 09:02) double vision Home Medications Fish Oil 2 cap PO BID 07/14/17 [History Confirmed 06/13/19] carvedilol 1 tab PO BID 07/14/17 [History Confirmed 06/13/19] insulin lispro [Humalog KwikPen Insulin] 1 unit SUB-Q DIRECTED PRN 07/14/17 [History Confirmed 06/13/19] sodium bicarbonate See Rx Instructions .ROUTE .COMPLEX 07/14/17 [History Confirmed 06/13/19] Humulin N NPH Insulin KwikPen 10 unit SUBCUT QPM 08/10/18 [History Confirmed 06/13/19] cholecalciferol (vitamin D3) [Vitamin D3] 5,000 unit PO DAILY 08/10/18 [History Confirmed 06/13/19] atorvastatin 40 mg PO DAILY 08/23/18 [History Confirmed 06/13/19] clopidogrel [Plavix] 75 mg PO DAILY 08/23/18 [History Confirmed 06/13/19] amlodipine 10 mg PO DAILY 09/20/18 [History Confirmed 06/13/19] aspirin 81 mg PO DAILY 10/18/18 [History Confirmed 06/13/19] acyclovir 1 tab PO BID #180 tab 04/30/19 [Rx Confirmed 06/13/19] cyanocobalamin (vitamin B-12) 1,000 mcg PO DAILY 05/02/19 [History Confirmed 06/13/19] Objective - Height/Weight Height/Weight: Height 5 ft 6 in Weight 87.1 kg BSA for Today's Weight 2.02 - Vital Signs Vital Signs: 06/13/19 08:16 Temperature 97.8 F Pulse Rate [Left Brachial] 65 Respiratory Rate 20 Blood Pressure [Right Arm] 140/59 L 02 Sat by Pulse Oximetry 98 - Pain Generalized Back Pain Intensity: 0 Left Arm Pain Intensity: 0 Generalized Teeth Pain Intensity: 0 - Emotional Needs Assessment Emotional Needs Assessment: Emotional Needs Identified? Yes Distress Screening Total 3 - ECOG Performance Status ECOG Score: 1 Physical Exam Narrative: GENERAL APPEARANCE: In no acute distress. Obese. She is very alert, oriented and appropriate. HEENT: Moist and clear, no oral thrush. LUNGS: Clear to auscultation bilaterally, no rales, rhonchi, or crackles. CARDIOVASCULAR: S1 and S2, regular rate and rhythm, no murmurs, gallops, rubs. ABDOMEN: Soft, nontender, bowel sounds normal. No hepatosplenomegaly. No mass palpated. EXTREMITIES: Trace edema . NEUROLOGIC: Grossly intact Results - Labs Outside Labs: Outside labs reviewed, adequate to treat Assessment and Plan (1) Multiple myeloma in remission kappa light chain multiple myeloma, refractory to Velcade dexamethasone and cyclophosphamide, could not tolerate Revlimid, progressed on Carfilzomib. -Ongoing brisk response to single agent Daratumumab. No overt adverse effects, the dizziness is not related to Daratumumab. -She prefers to space out her treatment to every 6 weeks, we discussed that no data to guide the decision at this point, but it is reasonable to do as she has a dramatic sustained response, order moved to 07/25/19. -Labs adequate to treat, will proceed to Daratumumab today, will see her back in6 weeks, plan to repeat K/L light chains in 6 weeks ahead of time. -She knows to call me if questions or concerns arise. (2) Steroid-induced hyperglycemia DM-II, hyperglycemia due to steroids. She was taking insulin 28 units on treatment days, however, HbA1c continue to rise ( 8.0 from 7.4) -Solu-Medrol discontinued in 02/2019, no reactions. (3) B12 deficiency anemia -Antibodies for parietal cells and intrinsic factor were normal. -Switch to oral Vit B12 in 04/2019, plan to repeat B12 level in 07/2019. (4) Weakness (5) Dizziness (6) 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 (7) Left facial numbness (8) Hearing loss (9) HTN (hypertension) Qualifiers: Hypertension type: essential hypertension Qualified Code(s): I10 - Essential (primary) hypertension - Chemo Plan Goal of Treatment: Palliative - Time with Patient Total Time Spent with Patient: 30 min Coordination of Care & Counseling Time: Greater than 50% of time spent with patient was for coordination of care (as documented) and [id number] counseling of patient and/or family. Dictated By: Margarito Buenrostro MD DD/ 3 Signed By: <Electronically signed by Margarito Buenrostro MD> 06/13/1935 [facility] Work Phone: [phone] Progress note Author Margarito Buenrostro [facility] May 02, 2019 8:38am Note Date/Time May 02, 2019 8:33 am [facility] [place] [address] Hem/Onc Follow Up Note - OP Signed Patient: Hailee Trivedi MR#: [id number] : 1940 Acct:[id number] Age/Sex: 78 / F Type: REG RCR Copies to: Curt Clark MD~ Subjective Date/Time of Service: Date of Service: 05/02/2019 Time of Service: 08:32 Chief Complaint: Follow up appt prior to treatment no new concerns - Diagnosis DIAGNOSIS: DIAGNOSIS: 1. [place] light chain multiple myeloma diagnosed by Dr. Motley by free light chain assay showing 7000 mg kappa, creatinine up to four and bone marrow biopsy in 07/05/2014 reveals 30% of cellularity with 50% involvement, of cyclin D1 positive, normal FISH and cytogenetics. -ISS stage III, beta-2 and microglobulin 3.8 on 07/05/2014, albumin 3.5. -Bone survey showed lucent areas in the calvarium and distal right humerus. -Autologous stem cell transplantation evaluated by Dr. Yossi Bradshaw, not a candidate. 2. Iron deficiency anemia, received IV iron in July 2014. 3. Developed hypertensive emergency after taken off antihypertensive drugs due to low BP (chest pain with BP 244/112) on 11/20/2015, CT angiogram did not show aortic dissection and echocardiogram showed LVEF of 60%, stress test negative. Troponin upon discharge was 0.17. CK-MB was 2.5. 4. Severe VitB12 deficiency diagnosed 12/2015, presentation was dizziness. PAST MEDICAL HISTORY: HTN, DM-II, CKD-3, CVA 2018. SOCIAL HISTORY: Lives with in [place]. HPI: Hailee presents for routine follow up; prior to Daratumumab. Patient reports doing fine, no specific complaints. - Summary of Therapies Summary of Therapies: 1. Velcade/dexamethasone induction regimen with dexamethasone 20 mg started 07/08/2014, kappa light chain decreased to 833 and 33 from 7000 in October 2014. 2. Tried Revlimid in September 2014, discontinued 11/02/2014 due to suspicion that it may cause itching. 3. Velcade 1.3 mg/m sq weekly along with dexamethasone 6 mg p.o. weekly, light chain improved from 833 to 570 as of 04/18/2015, then increased again in May 2015. 4. Velcade induction regimen restarted with dexamethasone 20 mg p.o. weekly on 07/01 patient experienced extreme fatigue due to dehydration from hyperglycemia and diarrhea. 5. Velcade 1.3 mg with dexamethasone 6 mg and cyclophosphamide 300 mg IV [id number]/2015, developed grade 2 anemia, fatigue and grade 3 diarrhea. Cyclophosphamide was switched to p.o. 50 mg three weeks on, one week off on 09/26/2015, however, free kappa light chain went down to 1179 on 10/24/2015. 6. Carfilzomib 20 mg/m2 on days 1,2,8,9,15,16 of a 21 day cycle, started on 11/04/2015-02/24/2016. Discontinued due to disease progression. -Dose escalated to 27mg/m2 in cycle 2, on 12/17/2015. Dose reduced to 20mg/m2 on cycle 4 day 15 due to grade 2 fatigue. CURRENT THERAPY 1. Daratumumab 03/17/2016-. -03/17/16-05/05/16, weekly. -05/19/16-08/25/16, biweekly. -09/22/16-, every 4 weeks. 09/21/2017 held due to dizziness, resumed 12/21/2017. Skip treatment on 12/13/18 per patient request. 2. VitB12 injections, monthly, switched to oral in 04/2019. Subjective/ROS - Narrative: CONSTITUTIONAL: Gaining weight, no fever, chills. Weakness in legs per HPI CARDIOVASCULAR: No chest pain, chest pressure or chest discomfort. No palpitations or edema. RESPIRATORY: No shortness of breath, cough or hemoptysis. GASTROINTESTINAL: No dysphagia, nausea, vomiting or diarrhea. No abdominal pain,melena, hematochezia. GENITOURINARY: No dysuria, urinary frequency or urgency. NEUROLOGICAL: Positive for dizziness (chronic) Positive for double vision on extreme lateral gaze MUSCULOSKELETAL: No pain PMFSH - Social History Smoking Status: Never smoker Substance Use Type: None Home Medications & Allergies Allergies Allergy/AdvReac Type Severity Reaction Status Date / Time lenalidomide [From Revlimid] Allergy Mild Rash Verified 04/04/19 09:02 oxybutynin Allergy Rash Verified 04/04/19 09:02 pregabalin [From Lyrica] Allergy double Verified 04/04/19 09:02 vision Home Medications Medication Instructions Recorded Confirmed Type Fish Oil 2 cap PO BID 07/14/17 05/02/19 History carvedilol 1 tab PO BID 07/14/17 05/02/19 History insulin lispro [Humalog KwikPen 1 unit SUB-Q DIRECTED PRN 07/14/17 05/02/19 History Insulin] sodium bicarbonate See Rx Instructions .ROUTE .COMPLEX 07/14/17 05/02/19 History Humulin N NPH Insulin KwikPen 10 unit SUBCUT QPM 08/10/18 05/02/19 History cholecalciferol (vitamin D3) 5,000 unit PO DAILY 08/10/18 05/02/19 History [Vitamin D3] atorvastatin 40 mg PO DAILY 08/23/18 05/02/19 History clopidogrel [Plavix] 75 mg PO DAILY 08/23/18 05/02/19 History amlodipine 10 mg PO DAILY 09/20/18 05/02/19 History aspirin 81 mg PO DAILY 10/18/18 05/02/19 History acyclovir 1 tab PO BID #180 tab 04/30/19 05/02/19 Rx Objective - Height/Weight Height/Weight: Height 5 ft 6 in Weight 87.5 kg BSA for Today's Weight 2.02 - Vital Signs Vital Signs: 05/02/19 08:10 Temperature 97.8 F Pulse Rate [Left Brachial] 66 Respiratory Rate 20 Blood Pressure [Right Arm] 132/56 L 02 Sat by Pulse Oximetry 96 - Pain Generalized Back Pain Intensity: 0 Left Arm Pain Intensity: 0 Generalized Teeth Pain Intensity: 0 - Emotional Needs Assessment Emotional Needs Assessment: Emotional Needs Identified? No Distress Screening Total 0 - ECOG Performance Status ECOG Score: 1 Physical Exam Narrative: GENERAL APPEARANCE: In no acute distress. Obese. She is very alert, oriented and appropriate. HEENT: Moist and clear, no oral thrush. LUNGS: Clear to auscultation bilaterally, no rales, rhonchi, or crackles. CARDIOVASCULAR: S1 and S2, regular rate and rhythm, no murmurs, gallops, rubs. ABDOMEN: Soft, nontender, bowel sounds normal. No hepatosplenomegaly. No mass palpated. EXTREMITIES: Trace edema . NEUROLOGIC: Grossly intact Results - Labs Labs: Diagram of Most Recent CBC and CMP 04/25/19 11:05 03/07/19 08:50 Labs - Last 7 Days 04/25/19 11:05: Free [place] LC, Quant 16.9, Free Lambda LC, Quant 10.8, Free [place]/Lambda Ratio 1.56 04/25/19 11:05: WBC 6.5, Corrected WBC 6.5, RBC 3.81, Hgb 12.2, Hct 36.4, MCV 95.7, MCH 32.1, MCHC 33.6, RDW 13.7, Plt Count 182, MPV 9.9, Neut % (Auto) 65.0,Lymph % (Auto) 26.9, [place] % (Auto) 7.0, Eos % (Auto) 0.6, Baso % (Auto) 0.5, Neut # (Auto) 4.2, Lymph # (Auto) 1.8, [place] # (Auto) 0.5, Eos # (Auto) 0.0, Baso# (Auto) 0.0, Nucleated RBC % (auto) 0.1 Assessment and Plan (1) Multiple myeloma in remission kappa light chain multiple myeloma, refractory to Velcade dexamethasone and cyclophosphamide, could not tolerate Revlimid, progressed on Carfilzomib. -Ongoing brisk response to single agent Daratumumab. No overt adverse effects, the dizziness is not related to Daratumumab. -She wonders if we could space out her treatment to every 6 weeks, we discussed that no data to guide the decision at this point, but it is reasonable to do as she has a dramatic sustained response. -Will continue Daratumumab today, will see her back in 6 weeks, plan to repeat K/L light chains in 12 weeks. -She knows to call me if questions or concerns arise. (2) Steroid-induced hyperglycemia DM-II, hyperglycemia due to steroids. She was taking insulin 28 units on treatment days, however, HbA1c continue to rise ( 8.0 from 7.4) -Solu-Medrol discontinued in 02/2019, no reactions. (3) B12 deficiency anemia -Antibodies for parietal cells and intrinsic factor were normal. -Switch to oral Vit B12 in 04/2019, plan to repeat B12 level in 07/2019. (4) Weakness (5) Dizziness (6) 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 (7) Left facial numbness (8) Hearing loss (9) HTN (hypertension) Qualifiers: Hypertension type: essential hypertension Qualified Code(s): I10 - Essential (primary) hypertension - Chemo Plan Goal of Treatment: Palliative - Time with Patient Total Time Spent with Patient: 30 min Coordination of Care & Counseling Time: Greater than 50% of time spent with patient was for coordination of care (as documented) and [id number] counseling of patient and/or family. Dictated By: Margarito Buenrostro MD DD/ Signed By: <Electronically signed by Margarito Buenrostro MD> 05/02/19 0838 [facility] Work Phone: [phone] Progress note Author Margarito Buenrostro [facility] March 07, 2019 10:22am Note Date/Time March 07, 2019 10: 19am [facility] at [address] [address] Hem/Onc Follow Up Note - OP Signed Patient: Hailee Trivedi MR#: [id number] : 1940 Acct:[id number] Age/Sex: 78 / F Type: REG RCR Copies to: Curt Clark MD~ Subjective Date/Time of Service: Date of Service: 03/07/2019 Time of Service: 08:16 Chief Complaint: Follow up appt prior to treatment - Diagnosis DIAGNOSIS: DIAGNOSIS: 1. [place] light chain multiple myeloma diagnosed by Dr. Motley by free light chain assay showing 7000 mg kappa, creatinine up to four and bone marrow biopsy in 07/05/2014 reveals 30% of cellularity with 50% involvement, of cyclin D1 positive, normal FISH and cytogenetics. -ISS stage III, beta-2 and microglobulin 3.8 on 07/05/2014, albumin 3.5. -Bone survey showed lucent areas in the calvarium and distal right humerus. -Autologous stem cell transplantation evaluated by Dr. Yossi Bradshaw, not a candidate. 2. Iron deficiency anemia, received IV iron in July 2014. 3. Developed hypertensive emergency after taken off antihypertensive drugs due to low BP (chest pain with BP 244/112) on 11/20/2015, CT angiogram did not show aortic dissection and echocardiogram showed LVEF of 60%, stress test negative. Troponin upon discharge was 0.17. CK-MB was 2.5. 4. Severe VitB12 deficiency diagnosed 12/2015, presentation was dizziness. PAST MEDICAL HISTORY: HTN, DM-II, CKD-3, CVA 2018. SOCIAL HISTORY: Lives with in [place]. HPI: Hailee presents for routine follow up; prior to Daratumumab. Patient reports doing fine, no specific complaints. - Summary of Therapies Summary of Therapies: 1. Velcade/dexamethasone induction regimen with dexamethasone 20 mg started 07/08/2014, kappa light chain decreased to 833 and 33 from 7000 in October 2014. 2. Tried Revlimid in September 2014, discontinued 11/02/2014 due to suspicion that it may cause itching. 3. Velcade 1.3 mg/m sq weekly along with dexamethasone 6 mg p.o. weekly, light chain improved from 833 to 570 as of 04/18/2015, then increased again in May 2015. 4. Velcade induction regimen restarted with dexamethasone 20 mg p.o. weekly on 07/01 patient experienced extreme fatigue due to dehydration from hyperglycemia and diarrhea. 5. Velcade 1.3 mg with dexamethasone 6 mg and cyclophosphamide 300 mg IV [id number], developed grade 2 anemia, fatigue and grade 3 diarrhea. Cyclophosphamide was switched to p.o. 50 mg three weeks on, one week off on 09/26/2015, however, free kappa light chain went down to 1179 on 10/24/2015. 6. Carfilzomib 20 mg/m2 on days 1,2,8,9,15,16 of a 21 day cycle, started on 11/04/2015-02/24/2016. Discontinued due to disease progression. -Dose escalated to 27mg/m2 in cycle 2, on 12/17/2015. Dose reduced to 20mg/m2 on cycle 4 day 15 due to grade 2 fatigue. CURRENT THERAPY 1. Daratumumab 03/17/2016-. -03/17/16-05/05/16, weekly. -05/19/16-08/25/16, biweekly. -09/22/16-, every 4 weeks. 09/21/2017 held due to dizziness, resumed 12/21/2017. Skip treatment on 12/13/18 per patient request. 2. VitB12 injections, monthly. Subjective/ROS - Narrative: CONSTITUTIONAL: Gaining weight, no fever, chills. Weakness in legs per HPI CARDIOVASCULAR: No chest pain, chest pressure or chest discomfort. No palpitations or edema. RESPIRATORY: No shortness of breath, cough or hemoptysis. GASTROINTESTINAL: No dysphagia, nausea, vomiting or diarrhea. No abdominal pain,melena, hematochezia. GENITOURINARY: No dysuria, urinary frequency or urgency. NEUROLOGICAL: Positive for dizziness (chronic) Positive for double vision on extreme lateral gaze MUSCULOSKELETAL: No pain PMFSH - Social History Smoking Status: Never smoker Substance Use Type: None Home Medications & Allergies Allergies Allergy/AdvReac Type Severity Reaction Status Date / Time lenalidomide [From Revlimid] Allergy Mild Rash Verified 01/02/19 10:15 oxybutynin Allergy Rash Verified 01/02/19 10:15 pregabalin [From Lyrica] Allergy double Verified 01/02/19 10:15 vision Home Medications Medication Instructions Recorded Confirmed Type Fish Oil 2 cap PO BID 07/14/17 01/10/19 History carvedilol 1 tab PO BID 07/14/17 01/10/19 History insulin lispro [Humalog KwikPen 1 unit SUB-Q DIRECTED PRN 07/14/17 01/10/19 History Insulin] sodium bicarbonate See Rx Instructions .ROUTE .COMPLEX 07/14/17 01/10/19 History acyclovir 1 tab PO BID #180 tab 03/23/18 01/10/19 Rx cholecalciferol (vitamin D3) 5,000 unit PO DAILY 08/10/18 01/10/19 History [Vitamin D3] insulin NPH isoph U-100 human 10 unit SUBCUT QPM 08/10/18 01/10/19 History [Humulin N NPH Insulin KwikPen] atorvastatin 40 mg PO DAILY 08/23/18 01/10/19 History clopidogrel [Plavix] 75 mg PO DAILY 08/23/18 01/10/19 History amlodipine 10 mg PO DAILY 09/20/18 01/10/19 History aspirin 81 mg PO DAILY 10/18/18 01/10/19 History Objective - Height/Weight Height/Weight: Height 5 ft 6 in Weight 87.6 kg BSA for Today's Weight 2.01 - Vital Signs Vital Signs: 03/07/19 10:06 Temperature 98.2 F Pulse Rate [Left Brachial] 68 Respiratory Rate 20 Blood Pressure [Right Arm] 156/62 H 02 Sat by Pulse Oximetry 95 - Pain Generalized Back Pain Intensity: 0 Left Arm Pain Intensity: 0 Generalized Teeth Pain Intensity: 0 - Emotional Needs Assessment Emotional Needs Assessment: Emotional Needs Identified? No Distress Screening Total 0 - ECOG Performance Status ECOG Score: 1 Results - Labs Labs: Diagram of Most Recent CBC and CMP 01/02/19 09:35 01/02/19 09:35 Labs - Last 7 Days 02/28/19 11:21: Anti-Parietal Cell Ab 1.9 - Impressions ITS Impressions Head CT 01/02/19 00:00 IMPRESSION: NO INTRACRANIAL HEMORRHAGE OR ACUTE LARGE VESSEL INFARCT. The CT exam was performed using one or more of the following dose reduction techniques: Automated exposure control, adjustment of the MA and/or Kv accordingto patient size, or use of the iterative reconstruction technique. REMARKS: The preliminary report was provided to Dr. Van Overton approximately 10:09 AM on 01/02/2019. Impression dictated by: Joseph Block M.D.01/02/2019 10:11 AM Dictation Location: [facility] Any impression(s) listed above is documentation that was entered by the reading physician into a diagnostic report(s) for Hailee Trivedi. I have reviewed the report(s) and am incorporating any findings in the treatment plan of this patient where applicable. Assessment and Plan (1) Multiple myeloma in remission kappa light chain multiple myeloma, refractory to Velcade dexamethasone and cyclophosphamide, could not tolerate Revlimid, progressed on Carfilzomib. -Ongoing brisk response to single agent Daratumumab. No overt adverse effects, the dizziness is not related to Daratumumab. -She will continue with her dose of Daratumumab today, will see her back in 8 weeks with K/L light chains, CBC, CMP in 7 weeks. -She knows to call me if questions or concerns arise. (2) Steroid-induced hyperglycemia DM-II, hyperglycemia due to steroids. She is taking insulin 28 units on treatment days. -HbA1c 8.0 from 7.4, discontinued Solu-Medrol. -She was instructed to not take any extra insulin besides her routine daily 10 units. (3) B12 deficiency anemia - Continue Vit B12 injection monthly. -Check antibody for parietal cells and intrinsic factor, if negative, can switchto oral B12 (4) Weakness (5) Dizziness (6) 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 (7) Left facial numbness (8) Hearing loss (9) HTN (hypertension) Qualifiers: Hypertension type: essential hypertension Qualified Code(s): I10 - Essential (primary) hypertension - Chemo Plan Goal of Treatment: Palliative - Time with Patient Total Time Spent with Patient: 30 min Coordination of Care & Counseling Time: Greater than 50% of time spent with patient was for coordination of care (as documented) and [id number] counseling of patient and/or family. Dictated By: Margarito Buenrostro MD DD/ [id number] Signed By: <Electronically signed by Margarito Buenrostro MD> 03/07/19 [facility] Work Phone: [phone] Progress note Author Margarito Buenrostro [facility] January 10, 2019 8:49am Note Date/Time January 10, 2019 8:43am [facility] at [address] [address] Hem/Onc Follow Up Note - OP Signed Patient: Hailee Trivedi MR#: [id number] : 1940 Acct:[id number] Age/Sex: 78 / F Type: REG RCR Copies to: Curt Clark MD~ Subjective Date/Time of Service: Date of Service: 01/10/2019 Time of Service: 08:42 Chief Complaint: Follow up appt prior to treatment has had leg weakness - Diagnosis DIAGNOSIS: DIAGNOSIS: 1. [place] light chain multiple myeloma diagnosed by Dr. Motley by free light chain assay showing 7000 mg kappa, creatinine up to four and bone marrow biopsy in 07/05/2014 reveals 30% of cellularity with 50% involvement, of cyclin D1 positive, normal FISH and cytogenetics. -ISS stage III, beta-2 and microglobulin 3.8 on 07/05/2014, albumin 3.5. -Bone survey showed lucent areas in the calvarium and distal right humerus. -Autologous stem cell transplantation evaluated by Dr. Yossi Bradshaw, not a candidate. 2. Iron deficiency anemia, received IV iron in July 2014. 3. Developed hypertensive emergency after taken off antihypertensive drugs due to low BP (chest pain with BP 244/112) on 11/20/2015, CT angiogram did not show aortic dissection and echocardiogram showed LVEF of 60%, stress test negative. Troponin upon discharge was 0.17. CK-MB was 2.5. 4. Severe VitB12 deficiency diagnosed 12/2015, presentation was dizziness. PAST MEDICAL HISTORY: HTN, DM-II, CKD-3, CVA 2018. SOCIAL HISTORY: Lives with in [place]. HPI: Hailee presents for routine follow up; prior to Cycle 19 Daratumumab. Patient had sudden onset weakness during blood draw for her labs last week, she was evaluated by ER, CT head at that point did not evidence of bleeding. She was released, she is currently wearing a patient monitor. Her legs are little weak,otherwise she has no specific complaints. - Summary of Therapies Summary of Therapies: 1. Velcade/dexamethasone induction regimen with dexamethasone 20 mg started 07/08/2014, kappa light chain decreased to 833 and 33 from 7000 in October 2014. 2. Tried Revlimid in September 2014, discontinued 11/02/2014 due to suspicion that it may cause itching. 3. Velcade 1.3 mg/m sq weekly along with dexamethasone 6 mg p.o. weekly, light chain improved from 833 to 570 as of 04/18/2015, then increased again in May 2015. 4. Velcade induction regimen restarted with dexamethasone 20 mg p.o. weekly on 07/01 patient experienced extreme fatigue due to dehydration from hyperglycemia and diarrhea. 5. Velcade 1.3 mg with dexamethasone 6 mg and cyclophosphamide 300 mg IV [id number]/2015, developed grade 2 anemia, fatigue and grade 3 diarrhea. Cyclophosphamide was switched to p.o. 50 mg three weeks on, one week off on 09/26/2015, however, free kappa light chain went down to 1179 on 10/24/2015. 6. Carfilzomib 20 mg/m2 on days 1,2,8,9,15,16 of a 21 day cycle, started on 11/04/2015-02/24/2016. Discontinued due to disease progression. -Dose escalated to 27mg/m2 in cycle 2, on 12/17/2015. Dose reduced to 20mg/m2 on cycle 4 day 15 due to grade 2 fatigue. CURRENT THERAPY 1. Daratumumab 03/17/2016-. -03/17/16-05/05/16, weekly. -05/19/16-08/25/16, biweekly. -09/22/16-, every 4 weeks. 09/21/2017 held due to dizziness, resumed 12/21/2017. Skip treatment on 12/13/18 per patient request. 2. VitB12 injections, monthly. Subjective/ROS - Narrative: CONSTITUTIONAL: Gaining weight, no fever, chills. Weakness in legs per HPI CARDIOVASCULAR: No chest pain, chest pressure or chest discomfort. No palpitations or edema. RESPIRATORY: No shortness of breath, cough or hemoptysis. GASTROINTESTINAL: No dysphagia, nausea, vomiting or diarrhea. No abdominal pain,melena, hematochezia. GENITOURINARY: No dysuria, urinary frequency or urgency. NEUROLOGICAL: Positive for dizziness (chronic) Positive for double vision on extreme lateral gaze MUSCULOSKELETAL: No pain ONC PMFSH - Cardiac History Does Patient Have Pacemaker?: No - Social History Hx Recreational Drug Use?: No Home Medications & Allergies Allergies Allergy/AdvReac Type Severity Reaction Status Date / Time lenalidomide [From Revlimid] Allergy Mild Rash Verified 01/02/19 10:15 oxybutynin Allergy Rash Verified 01/02/19 10:15 pregabalin [From Lyrica] Allergy double Verified 01/02/19 10:15 vision Home Medications Medication Instructions Recorded Confirmed Type Fish Oil 2 cap PO BID 07/14/17 01/10/19 History carvedilol 1 tab PO BID 07/14/17 01/10/19 History insulin lispro [Humalog KwikPen 1 unit SUB-Q DIRECTED PRN 07/14/17 01/10/19 History Insulin] sodium bicarbonate See Label Instructions .ROUTE 07/14/17 01/10/19 History .COMPLEX acyclovir 1 tab PO BID #180 tab 03/23/18 01/10/19 Rx cholecalciferol (vitamin D3) 5,000 unit PO DAILY 08/10/18 01/10/19 History [Vitamin D3] insulin NPH isoph U-100 human 10 unit SUBCUT QPM 08/10/18 01/10/19 History [Humulin N NPH Insulin KwikPen] atorvastatin 40 mg PO DAILY 08/23/18 01/10/19 History clopidogrel [Plavix] 75 mg PO DAILY 08/23/18 01/10/19 History amlodipine 10 mg PO DAILY 09/20/18 01/10/19 History aspirin 81 mg PO DAILY 10/18/18 01/10/19 History Objective - Height/Weight Height/Weight: Height 5 ft 6 in Weight 86.4 kg BSA for Today's Weight 2.01 - Vital Signs Vital Signs: 01/10/19 08:16 Temperature 97.8 F Pulse Rate [Left Brachial] 62 Respiratory Rate 20 Blood Pressure [Right Arm] 142/58 H 02 Sat by Pulse Oximetry 98 - Pain Generalized Back Pain Intensity: 0 Left Arm Pain Intensity: 0 Generalized Teeth Pain Intensity: 0 - Emotional Needs Assessment Emotional Needs Assessment: Emotional Needs Identified? No Distress Screening Total 0 - ECOG Performance Status ECOG Score: 1 Physical Exam Narrative: GENERAL APPEARANCE: In no acute distress. Obese. She is very alert, oriented and appropriate. HEENT: Moist and clear, no oral thrush. LUNGS: Clear to auscultation bilaterally, no rales, rhonchi, or crackles. CARDIOVASCULAR: S1 and S2, regular rate and rhythm, no murmurs, gallops, rubs. ABDOMEN: Soft, nontender, bowel sounds normal. No hepatosplenomegaly. No mass palpated. EXTREMITIES: Trace edema . NEUROLOGIC: Grossly intact Results - Labs Labs: Diagram of Most Recent CBC and CMP 01/02/19 09:35 01/02/19 09:35 Labs - Last 7 Days 01/02/19 09:35: Free [place] LC, Quant 14.9, Free Lambda LC, Quant 8.9, Free [place]/Lambda Ratio 1.67 H - Impressions ITS Impressions Head CT 01/02/19 00:00 IMPRESSION: NO INTRACRANIAL HEMORRHAGE OR ACUTE LARGE VESSEL INFARCT. The CT exam was performed using one or more of the following dose reduction techniques: Automated exposure control, adjustment of the MA and/or Kv according to patient size, or use of the iterative reconstruction technique. REMARKS: The preliminary report was provided to Dr. Van Overton approximately 10:09 AM on 01/02/2019. Impression dictated by: Joseph Block M.D.01/02/2019 10:11 AM Dictation Location: [facility] Any impression(s) listed above is documentation that was entered by the reading physician into a diagnostic report(s) for Hailee Trivedi. I have reviewed the report(s) and am incorporating any findings in the treatment plan of this patient where applicable. Assessment and Plan (1) Multiple myeloma in remission kappa light chain multiple myeloma, refractory to Velcade dexamethasone and cyclophosphamide, could not tolerate Revlimid, progressed on Carfilzomib. -Ongoing brisk response to single agent Daratumumab. No overt adverse effects, the dizziness is not related to Daratumumab. -She will continue with her dose of Daratumumab today, will see her back in 8 weeks with K/L light chains, CBC, CMP in 7 weeks. -She knows to call me if questions or concerns arise. (2) Steroid-induced hyperglycemia DM-II, hyperglycemia due to steroids. She is taking insulin 28 units on treatment days. -HbA1c 8.0 from 7.4, will try to discontinue Solu-Medrol. -She was instructed to not take any extra insulin besides her routine daily 10 units. (3) B12 deficiency anemia - Continue Vit B12 injection monthly. -Check antibody for parietal cells and intrinsic factor, if negative, can switchto oral B12 (4) Weakness Could be due to a TIA/ischemic stroke, this is managed by PCP (5) Dizziness (6) 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 (7) Left facial numbness (8) Hearing loss (9) Double vision (10) HTN (hypertension) Qualifiers: Hypertension type: essential hypertension Qualified Code(s): I10 - Essential (primary) hypertension - Chemo Plan Goal of Treatment: Palliative - Time with Patient Total Time Spent with Patient: 30 min Coordination of Care & Counseling Time: Greater than 50% of time spent with patient was for coordination of care (as documented) and [id number] counseling of patient and/or family. Dictated By: Margarito Buenrostro MD DD/ [id number] Signed By: <Electronically signed by Margarito Buenrostro MD> 01/10/19 0849 [facility] Work Phone: [phone] 332-836002-19-2019 Progress note Author Anna Marie Mcnamara [facility] January 02, 2019 4:51pm Note Date/Time January 02, 2019 4:51pm [facility] [address] [place] [address] Event Note Signed Patient: Hailee Trivedi MR#: [id number] : 1940 Acct:[id number] Age/Sex: 78 / F Adm Date: 9 Loc: XT Room: Type: [facility] Attending Dr: Margarito Buenrostro MD Copies to: MD Abmer Stone Marcia E MD Ruta Semaskiene, MD~ Event Date & Type DATE OF EVENT: 01/02/19 CRITICAL CARE TIME: 35 EVENT TYPE: Stroke Alert PROCEDURES PERFORMED DURING EVENT: None Event Details 78 years old female with underlying history of multiple myeloma presented to oncology infusion center. Per nursing report patient was getting IV flush without any medications when she developed sleepiness/lethargy. She was tellingthat she wants to sleep but denied any other complaints. Stroke alert was called. Upon arrival patient was sitting in the chair with her eyes closed. She was responsive to verbal commands, she was able to tell her name and the place. She was oriented x2. She denied any complaints such as chest pain, shortness of breath, dizziness, headache, tingling numbness, weakness in extremities, any pain anywhere else. She was just telling that she wants to go to sleep. On physical exam patient was lethargic but arousable to voice stimuli, oriented x3, she did not appear to be in respiratory distress, she did not appear to be anxious nor painful. She was able to follow the commands. Cardiovascular revealed S1 plus S2 with regular rate no murmurs Lungs were clear to auscultation bilateral Abdomen was soft Extremities no edema Neurological no focal Psychiatry sleepy Vital signs -116/73, with heart rate 70s monitor showing normal sinus rhythm, respirations 60, glucose 133 1. Lethargy, at this point no focal neurological dysfunction noted, with stableblood pressure, normal glucose, without any other complaints such as chest pain shortness of breath, it was recommended to undergo CT scan of the head, and transfer to emergency room for further evaluation. At this point no neurological ischemic event was suspected. Documented By: Anna Marie Mcnamara MD 01/02/19 1644 Signed By: <Electronically signed by Anna Marie Mcnamara MD> 01/02/19 1651 [facility] Work Phone: 1(201) 972-419701-02-2019 Progress note Author Margarito Buenrostro [facility] November 15, 2018 8:49am Note Date/Time November 15, 2018 8: 45am [facility] [place] [address] Hem/Onc Follow Up Note - OP Signed Patient: Hailee Trivedi MR#: [id number] : 1940 Acct:[id number] Age/Sex: 78 / F Type: REG RCR Copies to: Curt Clark MD~ Subjective Date/Time of Service: Date of Service: 11/15/2018 Time of Service: 08:43 Chief Complaint: Follow up appt myloma no new concerns - Diagnosis DIAGNOSIS: DIAGNOSIS: 1. [place] light chain multiple myeloma diagnosed by Dr. Motley by free light chain assay showing 7000 mg kappa, creatinine up to four and bone marrow biopsy in 07/05/2014 reveals 30% of cellularity with 50% involvement, of cyclin D1 positive, normal FISH and cytogenetics. -ISS stage III, beta-2 and microglobulin 3.8 on 07/05/2014, albumin 3.5. -Bone survey showed lucent areas in the calvarium and distal right humerus. -Autologous stem cell transplantation evaluated by Dr. Yossi Bradshaw, not a candidate. 2. Iron deficiency anemia, received IV iron in July 2014. 3. Developed hypertensive emergency after taken off antihypertensive drugs due to low BP (chest pain with BP 244/112) on 11/20/2015, CT angiogram did not show aortic dissection and echocardiogram showed LVEF of 60%, stress test negative. Troponin upon discharge was 0.17. CK-MB was 2.5. 4. Severe VitB12 deficiency diagnosed 12/2015, presentation was dizziness. PAST MEDICAL HISTORY: HTN, DM-II, CKD-3, CVA 2018. SOCIAL HISTORY: Lives with in [place]. HPI: Hailee presents for routine follow up; prior to Cycle 17 Daratumumab. Clinically,she looks good and is without complaints other than occasional right hip pain (present x several years); worse with activity and excessive walking, otherwise no new areas of pain. Denies headaches, fever/chills, recent/recurrent infections, chest pain, shortness of breath, weight loss, nausea/vomiting, abdominal pain, bowel or bladder problems, skin rash, or lower extremity edema. Energy levels have been good; denies excessive fatigue. - Summary of Therapies Summary of Therapies: 1. Velcade/dexamethasone induction regimen with dexamethasone 20 mg started 07/08/2014, kappa light chain decreased to 833 and 33 from 7000 in October 2014. 2. Tried Revlimid in September 2014, discontinued 11/02/2014 due to suspicion that it may cause itching. 3. Velcade 1.3 mg/m sq weekly along with dexamethasone 6 mg p.o. weekly, light chain improved from 833 to 570 as of 04/18/2015, then increased again in May 2015. 4. Velcade induction regimen restarted with dexamethasone 20 mg p.o. weekly on 07/01 patient experienced extreme fatigue due to dehydration from hyperglycemia and diarrhea. 5. Velcade 1.3 mg with dexamethasone 6 mg and cyclophosphamide 300 mg IV [id number], developed grade 2 anemia, fatigue and grade 3 diarrhea. Cyclophosphamide was switched to p.o. 50 mg three weeks on, one week off on 09/26/2015, however, free kappa light chain went down to 1179 on 10/24/2015. 6. Carfilzomib 20 mg/m2 on days 1,2,8,9,15,16 of a 21 day cycle, started on 11/04/2015-02/24/2016. Discontinued due to disease progression. -Dose escalated to 27mg/m2 in cycle 2, on 12/17/2015. Dose reduced to 20mg/m2 on cycle 4 day 15 due to grade 2 fatigue. CURRENT THERAPY 1. Daratumumab 03/17/2016-. -03/17/16-05/05/16, weekly. -05/19/16-08/25/16, biweekly. -09/22/16-, every 4 weeks. 09/21/2017 held due to dizziness, resumed 12/21/2017. 2. VitB12 injections, monthly. Subjective/ROS - Narrative: CONSTITUTIONAL: Gaining weight, no fever, chills. Weakness in legs per HPI CARDIOVASCULAR: No chest pain, chest pressure or chest discomfort. No palpitations or edema. RESPIRATORY: No shortness of breath, cough or hemoptysis. GASTROINTESTINAL: No dysphagia, nausea, vomiting or diarrhea. No abdominal pain,melena, hematochezia. GENITOURINARY: No dysuria, urinary frequency or urgency. NEUROLOGICAL: Positive for dizziness (chronic) Positive for double vision on extreme lateral gaze MUSCULOSKELETAL: No pain ONC PMFSH - Cardiac History Does Patient Have Pacemaker?: No - Social History Hx Recreational Drug Use?: No Home Medications & Allergies Allergies Allergy/AdvReac Type Severity Reaction Status Date / Time lenalidomide [From Revlimid] Allergy Mild Rash Verified 10/18/18 09:19 oxybutynin Allergy Rash Verified 10/18/18 09:19 pregabalin [From Lyrica] Allergy double Verified 10/18/18 09:19 vision Home Medications Medication Instructions Recorded Confirmed Type Fish Oil 2 cap PO BID 07/14/17 11/15/18 History carvedilol 1 tab PO BID 07/14/17 11/15/18 History insulin lispro [Humalog KwikPen 1 unit SUB-Q DIRECTED PRN 07/14/17 11/15/18 History Insulin] sodium bicarbonate See Label Instructions .ROUTE 07/14/17 11/15/18 History .COMPLEX acyclovir 1 tab PO BID #180 tab 03/23/18 11/15/18 Rx cholecalciferol (vitamin D3) 5,000 unit PO DAILY 08/10/18 11/15/18 History [Vitamin D3] insulin NPH isoph U-100 human 10 unit SUBCUT QPM 08/10/18 11/15/18 History [Humulin N NPH Insulin KwikPen] atorvastatin 40 mg PO DAILY 08/23/18 11/15/18 History clopidogrel [Plavix] 75 mg PO DAILY 08/23/18 11/15/18 History amlodipine 10 mg PO DAILY 09/20/18 11/15/18 History aspirin 81 mg PO DAILY 10/18/18 11/15/18 History Objective - Height/Weight Height/Weight: Height 5 ft 6 in Weight 86.8 kg BSA for Today's Weight 2.00 - Vital Signs Vital Signs: Temp 97.9 F 11/15/18 08:08 Pulse 71 11/15/18 08:08 Resp 20 11/15/18 08:08 BP 142/70 H 11/15/18 08:08 Pulse Ox 98 11/15/18 08:08 - Pain Generalized Back Pain Intensity: 0 Left Arm Pain Intensity: 0 Generalized Teeth Pain Intensity: 0 - Emotional Needs Assessment Emotional Needs Assessment: Emotional Needs Identified? No Distress Screening Total 0 Support System Family - ECOG Performance Status ECOG Score: 1 Physical Exam Narrative: GENERAL APPEARANCE: In no acute distress. Obese. She is very alert, oriented and appropriate. HEENT: Moist and clear, no oral thrush. LUNGS: Clear to auscultation bilaterally, no rales, rhonchi, or crackles. CARDIOVASCULAR: S1 and S2, regular rate and rhythm, no murmurs, gallops, rubs. ABDOMEN: Soft, nontender, bowel sounds normal. No hepatosplenomegaly. No mass palpated. EXTREMITIES: Trace edema . NEUROLOGIC: Grossly intact Results - Labs CBC & Chem 7: 10/13/18 09:10 10/13/18 09:10 - Impressions Any impression(s) listed above is documentation that was entered by the reading physician into a diagnostic report(s) for Hailee Trivedi. I have reviewed the report(s) and am incorporating any findings in the treatment plan of this patient where applicable. Assessment and Plan (1) Multiple myeloma in remission Status: Chronic kappa light chain multiple myeloma, refractory to Velcade dexamethasone and cyclophosphamide, could not tolerate Revlimid, progressed on Carfilzomib. -Ongoing brisk response to single agent Daratumumab. No overt adverse effects, the dizziness is not related to Daratumumab. -She will continue with her dose of Daratumumab today, she asked if she can have less treatment during the winter time, I think it is reasonable given her excellent control of the disease. The IgG kappa may represents Daratumumab she received. Skip treatment on 12/13/18, see in 8 weeks with Daratumumab scheduled on the same day, check K/L light chains, CBC, CMP in 7 weeks. -She knows to call me if questions or concerns arise. (2) Steroid-induced hyperglycemia Status: Chronic DM-II, hyperglycemia due to steroids. She is taking insulin 28 units on treatment days. -HbA1c 7.4, will repeat in 7 weeks, Solu-Medrol decreased to 20 mg, plan to discontinue in the future if she does ok with it. -She was instructed to decrease her insulin to 10 units from 28 units. (3) B12 deficiency anemia Status: Chronic - Continue Vit B12 injection monthly. 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 Dictated By: Margarito Buenrostro MD DD/ [id number] Signed By: <Electronically signed by Margarito Buenrostro MD> 11/15/18 0849 [facility] Work Phone: [phone] Progress note Author Lisa Devine [facility] October 18, 2018 9:34am Note Date/Time October 18, 2018 9 :30am [facility] [place] [address] Hem/Onc Follow Up Note - OP Signed Patient: Hailee Trivedi MR#: [id number] : 1940 Acct:[id number] Age/Sex: 78 / F Type: REG RCR Copies to: Curt Clark MD~ Subjective Date/Time of Service: Date of Service: 10/18/2018 Time of Service: 09:27 Chief Complaint: Patient here for one month follow up appointment for Multiple myeloma to be seen before C16 Daratumumab. - Diagnosis DIAGNOSIS: DIAGNOSIS: 1. [place] light chain multiple myeloma diagnosed by Dr. Motley by free light chain assay showing 7000 mg kappa, creatinine up to four and bone marrow biopsy in 07/05/2014 reveals 30% of cellularity with 50% involvement, of cyclin D1 positive, normal FISH and cytogenetics. -ISS stage III, beta-2 and microglobulin 3.8 on 07/05/2014, albumin 3.5. -Bone survey showed lucent areas in the calvarium and distal right humerus. -Autologous stem cell transplantation evaluated by Dr. Yossi Bradshaw, not a candidate. 2. Iron deficiency anemia, received IV iron in July 2014. 3. Developed hypertensive emergency after taken off antihypertensive drugs due to low BP (chest pain with BP 244/112) on 11/20/2015, CT angiogram did not show aortic dissection and echocardiogram showed LVEF of 60%, stress test negative. Troponin upon discharge was 0.17. CK-MB was 2.5. 4. Severe VitB12 deficiency diagnosed 12/2015, presentation was dizziness. PAST MEDICAL HISTORY: HTN, DM-II, CKD-3. SOCIAL HISTORY: Lives with in [place]. HPI: Hailee presents for routine follow up; prior to Cycle 16 Daratumumab. Clinically,she looks good and is without complaints other than occasional right hip pain (present x several years); worse with activity and excessive walking, otherwise no new areas of pain. Denies headaches, fever/chills, recent/recurrent infections, chest pain, shortness of breath, weight loss, nausea/vomiting, abdominal pain, bowel or bladder problems, skin rash, or lower extremity edema. Energy levels have been good; denies excessive fatigue. - Summary of Therapies Summary of Therapies: 1. Velcade/dexamethasone induction regimen with dexamethasone 20 mg started 07/08/2014, kappa light chain decreased to 833 and 33 from 7000 in October 2014. 2. Tried Revlimid in September 2014, discontinued 11/02/2014 due to suspicion that it may cause itching. 3. Velcade 1.3 mg/m sq weekly along with dexamethasone 6 mg p.o. weekly, light chain improved from 833 to 570 as of 04/18/2015, then increased again in May 2015. 4. Velcade induction regimen restarted with dexamethasone 20 mg p.o. weekly on 07/01 patient experienced extreme fatigue due to dehydration from hyperglycemia and diarrhea. 5. Velcade 1.3 mg with dexamethasone 6 mg and cyclophosphamide 300 mg IV [id number]/2015, developed grade 2 anemia, fatigue and grade 3 diarrhea. Cyclophosphamide was switched to p.o. 50 mg three weeks on, one week off on 09/26/2015, however, free kappa light chain went down to 1179 on 10/24/2015. 6. Carfilzomib 20 mg/m2 on days 1,2,8,9,15,16 of a 21 day cycle, started on 11/04/2015-02/24/2016. Discontinued due to disease progression. -Dose escalated to 27mg/m2 in cycle 2, on 12/17/2015. Dose reduced to 20mg/m2 on cycle 4 day 15 due to grade 2 fatigue. CURRENT THERAPY 1. Daratumumab 03/17/2016-. -03/17/16-05/05/16, weekly. -05/19/16-08/25/16, biweekly. -09/22/16-, every 4 weeks. 09/21/2017 on hold due to dizziness, to be resumed 12/21/2017. 2. VitB12 injections, monthly. Subjective/ROS - Narrative: CONSTITUTIONAL: Gaining weight, no fever, chills. Weakness in legs per HPI CARDIOVASCULAR: No chest pain, chest pressure or chest discomfort. No palpitations or edema. RESPIRATORY: No shortness of breath, cough or hemoptysis. GASTROINTESTINAL: No dysphagia, nausea, vomiting or diarrhea. No abdominal pain,melena, hematochezia. GENITOURINARY: No dysuria, urinary frequency or urgency. NEUROLOGICAL: Positive for dizziness (chronic) Positive for double vision on extreme lateral gaze MUSCULOSKELETAL: No pain ONC PMFSH - Cardiac History Does Patient Have Pacemaker?: No - Social History Hx Recreational Drug Use?: No Home Medications & Allergies Allergies Allergy/AdvReac Type Severity Reaction Status Date / Time lenalidomide [From Revlimid] Allergy Mild Rash Verified 10/18/18 09:19 oxybutynin Allergy Rash Verified 10/18/18 09:19 pregabalin [From Lyrica] Allergy double Verified 10/18/18 09:19 vision Home Medications Medication Instructions Recorded Confirmed Type Fish Oil 2 cap PO BID 07/14/17 10/18/18 History carvedilol 1 tab PO BID 07/14/17 10/18/18 History insulin lispro [Humalog KwikPen 1 unit SUB-Q DIRECTED PRN 07/14/17 10/18/18 History Insulin] sodium bicarbonate See Label Instructions .ROUTE 07/14/17 10/18/18 History .COMPLEX acyclovir 1 tab PO BID #180 tab 03/23/18 10/18/18 Rx cholecalciferol (vitamin D3) 5,000 unit PO DAILY 08/10/18 10/18/18 History [Vitamin D3] insulin NPH isoph U-100 human 10 unit SUBCUT QPM 08/10/18 10/18/18 History [Humulin N NPH Insulin KwikPen] atorvastatin 40 mg PO DAILY 08/23/18 10/18/18 History clopidogrel [Plavix] 75 mg PO DAILY 08/23/18 10/18/18 History amlodipine 10 mg PO DAILY 09/20/18 10/18/18 History aspirin 81 mg PO DAILY 10/18/18 10/18/18 History Objective - Resuscitation Status Resuscitation Status: Full Code - Height/Weight Height/Weight: Height 5 ft 6 in Weight 86.137 kg BSA for Today's Weight 2.00 - Vital Signs Vital Signs: Temp 97.8 F 10/18/18 08:33 Pulse 78 10/18/18 08:33 Resp 16 10/18/18 08:33 BP 147/68 H 10/18/18 08:33 Pulse Ox 98 10/18/18 08:33 - Pain Generalized Back Pain Intensity: 0 Left Arm Pain Intensity: 0 Generalized Teeth Pain Intensity: 0 - Emotional Needs Assessment Emotional Needs Assessment: Emotional Needs Identified? Yes Distress Screening Total 0 Support System Family,Friend - ECOG Performance Status ECOG Score: 1 Physical Exam Narrative: GENERAL APPEARANCE: In no acute distress. Obese. She is very alert, oriented and appropriate. HEENT: Moist and clear, no oral thrush. LUNGS: Clear to auscultation bilaterally, no rales, rhonchi, or crackles. CARDIOVASCULAR: S1 and S2, regular rate and rhythm, no murmurs, gallops, rubs. ABDOMEN: Soft, nontender, bowel sounds normal. No hepatosplenomegaly. No mass palpated. EXTREMITIES: Trace edema . NEUROLOGIC: Grossly intact Results - Labs CBC & Chem 7: 10/13/18 09:10 10/13/18 09:10 Labs: Diagram of Most Recent CBC and CMP 10/13/18 09:10 10/13/18 09:10 Labs - Last 7 Days 10/13/18 09:10: Serum Immunofixation , HAILEE IgG 487 L, HAILEE IgA 65, HAILEE IgM 38, Free [place] LC, Quant 15.8, Free Lambda LC, Quant 9.7, Free [place]/Lambda Ratio 1.63 10/13/18 09:10: PHA Creatinine Clear [id number], Sodium 137, Potassium 4.1, Chloride 107, Carbon Dioxide 21.9 L, BUN 27 H, Creatinine 2.11 H, Est GFR ( Amer) 28, Est GFR (Non-Af Amer) 23, Glucose 126 H, Calcium 8.7, Total Bilirubin 0.5, AST 17, ALT 13, Alkaline Phosphatase 97 H, Total Protein 5.7 L, Albumin 3.4, Globulin 2.3, Albumin/Globulin Ratio 1.5 10/13/18 09:10: WBC 6.5, Corrected WBC 6.5, RBC 3.73, Hgb 12.3, Hct 36.3, MCV 97.5, MCH 32.9, MCHC 33.7, RDW 13.3, Plt Count 197, MPV 9.9, Neut % (Auto) 64.5, Lymph % (Auto) 27.4, [place] % (Auto) 6.8, Eos % (Auto) 0.8, Baso % (Auto) 0.5, Neut # (Auto) 4.2, Lymph # (Auto) 1.8, [place] # (Auto) 0.4, Eos # (Auto) 0.1, Baso # (Auto) 0.0 - Impressions Any impression(s) listed above is documentation that was entered by the reading physician into a diagnostic report(s) for Hailee Trivedi. I have reviewed the report(s) and am incorporating any findings in the treatment plan of this patient where applicable. Assessment and Plan (1) Multiple myeloma in remission Status: Chronic kappa light chain multiple myeloma, refractory to Velcade dexamethasone and cyclophosphamide, could not tolerate Revlimid, progressed on Carfilzomib. -Ongoing brisk response to single agent Daratumumab. No overt adverse effects, doubt the dizziness is related to Daratumumab. -She knows to call me if questions or concerns arise. She will continue with her dose of Daratumumab today. She is back for 1 month follow up today; her labs are stable. Dr. Cornelius ordered an urine IEP, which is not resulted yet. Because clinically the patient is doing so well, we will have her proceed with therapy today. No abnormalities in CBC (no anemia), CMP shows creatinine of 2.11 (which is quite good for her). She follows regularly with Dr. Torres; last appointment was 09/15/2018. RTC on 11/15/2018 (prior to Cycle 17 Daratumumab) to see Dr. Buenrostro. Patient is questioning taking a chemotherapy break over the winter (due to the cold weather), but would like to discuss with Dr. Buenrostro first. (2) Dizziness Status: Acute (3) Steroid-induced hyperglycemia Status: Chronic (4) 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 Status: Chronic (5) Left facial numbness Status: Acute (6) B12 deficiency anemia Status: Chronic (7) Weakness Status: Acute (8) Hearing loss Status: Chronic (9) Double vision Status: Chronic (10) HTN (hypertension) Qualifiers: Hypertension type: essential hypertension Qualified Code(s): I10 - Essential (primary) hypertension Status: Chronic - Chemo Plan Goal of Treatment: Palliative - Time with Patient Total Time Spent with Patient: 30 min Coordination of Care & Counseling Time: Greater than 50% of time spent with patient was for coordination of care (as documented) and [id number] counseling of patient and/or family. Dictated By: Lisa Devine DD/ 0927 Signed By: <Electronically signed by Lisa Devine> 10/18/18 0934 [facility] Work Phone: [phone]) [phone] Progress note Author Jacklyn Cornelius [facility] September 20, 2018 8:53am Note Date/Time September 20, 2018 8 :43am [facility] at [address] [address] Hem/Onc Follow Up Note - OP Signed Patient: Hailee Trivedi MR#: [id number] : 1940 Acct:[id number] Age/Sex: 78 / F Type: REG RCR Copies to: Curt Clark MD~ Subjective Date/Time of Service: Date of Service: 09/20/2018 Time of Service: 08:38 Chief Complaint: Multiple myeloma follow up appt day of treatment continues to have some dizziness - Diagnosis DIAGNOSIS: 1. [place] light chain multiple myeloma diagnosed by Dr. Motley by free light chain assay showing 7000 mg kappa, creatinine up to four and bone marrow biopsy in 07/05/2014 reveals 30% of cellularity with 50% involvement, of cyclin D1 positive, normal FISH and cytogenetics. -ISS stage III, beta-2 and microglobulin 3.8 on 07/05/2014, albumin 3.5. -Bone survey showed lucent areas in the calvarium and distal right humerus. -Autologous stem cell transplantation evaluated by Dr. Yossi Bradshaw, not a candidate. 2. Iron deficiency anemia, received IV iron in July 2014. 3. Developed hypertensive emergency after taken off antihypertensive drugs due to low BP (chest pain with BP 244/112) on 11/20/2015, CT angiogram did not show aortic dissection and echocardiogram showed LVEF of 60%, stress test negative. Troponin upon discharge was 0.17. CK-MB was 2.5. 4. Severe VitB12 deficiency diagnosed 12/2015, presentation was dizziness. PAST MEDICAL HISTORY: HTN, DM-II, CKD-3. SOCIAL HISTORY: Lives with in [place]. HPI: Mrs. Bright is here today to receive daratumumab cycle 15. She has kappa lightchain multiple myeloma with a mild degree of azotemia. She also has diabetes mellitus and hypertension that has been difficult to control over the years. Asa result this lady seems to have fairly significant atherosclerotic disease including in her brain. She has been complaining for a long time of dizziness with rapid movements of her head and double vision when she looked to the extremes on the left. She recently had an evaluation by neurology on 11 August and I have extensively reviewed that note. The opinion is that this lady has had a large right cerebellar infarct on an MRI of the brain done at [place] under the direction of the neurologist. It is not totally clear when this infarction occurred as the patient did not have acute symptoms just the chronic symptoms as above. However the impression on the scans and from the neurologist is that the event probably occurred perhaps just several weeks priorto the neurology evaluation. 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 The patient is been taken off aspirin andnow is placed on Plavix per neurology. I think she probably does have ongoing follow-up with neurology. From the point of view of the multiple myeloma she appears to be very stable. She completely denies any new areas of bone pain. She has some chronic pain in her left hip area which she believes is on the basis of degenerative arthritis. She tolerates her current chemotherapy exceedingly well with no major complications. The patient is living alone with her . She drove her car here today. She has multiple children living in her vicinity so she is well supported. She states that she does most of her activities of daily living. She walks with a cane to give her balance especially if she is standing still. She feels that her balance is much better when she is in motion walking. I do not think that she is giving me any symptoms that suggest a deterioration in her neurologic status on the basis of this recent infarction. She has had no recent infections or need for antibiotics and she has no bleeding. She does complain of significant fatigue - Summary of Therapies Summary of Therapies: 1. Velcade/dexamethasone induction regimen with dexamethasone 20 mg started 07/08/2014, kappa light chain decreased to 833 and 33 from 7000 in October 2014. 2. Tried Revlimid in September 2014, discontinued 11/02/2014 due to suspicion that it may cause itching. 3. Velcade 1.3 mg/m sq weekly along with dexamethasone 6 mg p.o. weekly, light chain improved from 833 to 570 as of 04/18/2015, then increased again in May 2015. 4. Velcade induction regimen restarted with dexamethasone 20 mg p.o. weekly on 07/01 patient experienced extreme fatigue due to dehydration from hyperglycemia and diarrhea. 5. Velcade 1.3 mg with dexamethasone 6 mg and cyclophosphamide 300 mg IV [id number]/2015, developed grade 2 anemia, fatigue and grade 3 diarrhea. Cyclophosphamide was switched to p.o. 50 mg three weeks on, one week off on 09/26/2015, however, free kappa light chain went down to 1179 on 10/24/2015. 6. Carfilzomib 20 mg/m2 on days 1,2,8,9,15,16 of a 21 day cycle, started on 11/04/2015-02/24/2016. Discontinued due to disease progression. -Dose escalated to 27mg/m2 in cycle 2, on 12/17/2015. Dose reduced to 20mg/m2 on cycle 4 day 15 due to grade 2 fatigue. CURRENT THERAPY 1. Daratumumab 03/17/2016-. -03/17/16-05/05/16, weekly. -05/19/16-08/25/16, biweekly. -09/22/16-, every 4 weeks. 09/21/2017 on hold due to dizziness, to be resumed 12/21/2017. 2. VitB12 injections, monthly. Subjective/ROS - Narrative: CONSTITUTIONAL: Gaining weight, no fever, chills. Weakness in legs per HPI CARDIOVASCULAR: No chest pain, chest pressure or chest discomfort. No palpitations or edema. RESPIRATORY: No shortness of breath, cough or hemoptysis. GASTROINTESTINAL: No dysphagia, nausea, vomiting or diarrhea. No abdominal pain,melena, hematochezia. GENITOURINARY: No dysuria, urinary frequency or urgency. NEUROLOGICAL: Positive for dizziness. Positive for double vision on extreme lateral gaze MUSCULOSKELETAL: No pain. ONC PMFSH - Social History Hx Recreational Drug Use?: No Home Medications & Allergies Allergies Allergy/AdvReac Type Severity Reaction Status Date / Time lenalidomide [From Revlimid] Allergy Mild Rash Verified 09/20/18 08:35 oxybutynin Allergy Rash Verified 09/20/18 08:35 pregabalin [From Lyrica] Allergy double Verified 09/20/18 08:35 vision Home Medications Medication Instructions Recorded Confirmed Type Fish Oil 2 cap PO BID 07/14/17 09/20/18 History carvedilol 1 tab PO BID 07/14/17 09/20/18 History insulin lispro [Humalog KwikPen 1 unit SUB-Q DIRECTED PRN 07/14/17 09/20/18 History Insulin] sodium bicarbonate See Label Instructions .ROUTE 07/14/17 09/20/18 History .COMPLEX acyclovir 1 tab PO BID #180 tab 03/23/18 09/20/18 Rx cholecalciferol (vitamin D3) 5,000 unit PO DAILY 08/10/18 09/20/18 History [Vitamin D3] insulin NPH isoph U-100 human 10 unit SUBCUT QPM 08/10/18 09/20/18 History [Humulin N NPH Insulin KwikPen] atorvastatin 40 mg PO DAILY 08/23/18 09/20/18 History clopidogrel [Plavix] 75 mg PO DAILY 08/23/18 09/20/18 History amlodipine 10 mg PO DAILY 09/20/18 09/20/18 History Objective - Height/Weight Height/Weight: Height 5 ft 6 in Weight 84.9 kg BSA for Today's Weight 1.99 - Vital Signs Vital Signs: Temp 97.6 F 09/20/18 08:09 Pulse 64 09/20/18 08:09 Resp 20 09/20/18 08:09 BP 126/56 L 09/20/18 08:09 Pulse Ox 97 09/20/18 08:09 - Pain Generalized Back Pain Intensity: 6 Left Arm Pain Intensity: 6 Generalized Teeth Pain Intensity: 3 - Emotional Needs Assessment Emotional Needs Assessment: Emotional Needs Identified? No Distress Screening Total 0 Support System Family - ECOG Performance Status ECOG Score: 1 Physical Exam Narrative: GENERAL APPEARANCE: In no acute distress. Obese. She is very alert, oriented and appropriate. HEENT: Moist and clear, no oral thrush. LUNGS: Clear to auscultation bilaterally, no rales, rhonchi, or crackles. CARDIOVASCULAR: S1 and S2, regular rate and rhythm, no murmurs, gallops, rubs. ABDOMEN: Soft, nontender, bowel sounds normal. No hepatosplenomegaly. No mass palpated. EXTREMITIES: Trace edema . NEUROLOGIC: She does not have any cranial nerve palsies. There is no lateralizing weakness or sensory loss. Her gait is somewhat broad-based and intermittently she supports herself with a cane. She appears steady when she is in motion Results - Labs CBC & Chem 7: 09/13/18 11:15 09/13/18 11:15 Labs: Diagram of Most Recent CBC and CMP 09/13/18 11:15 09/13/18 11:15 Labs - Last 7 Days 09/13/18 11:15: Free [place] LC, Quant 15.3, Free Lambda LC, Quant 13.0, Free [place]/Lambda Ratio 1.18 09/13/18 11:15: PHA Creatinine Clear [id number], Sodium 140, Potassium 4.6, Chloride 109, Carbon Dioxide 23.6, BUN 27 H, Creatinine 2.42 H, Est GFR ( Amer) 24, Est GFR (Non-Af Amer) 19, Glucose 147 H, Calcium 8.6, Total Bilirubin 0.5, AST 20, ALT 16, Alkaline Phosphatase 86, Total Protein 5.9 L, Albumin 3.6, Globulin 2.3, Albumin/Globulin Ratio 1.6 09/13/18 11:15: WBC 6.0, Corrected WBC 6.0, RBC 3.82, Hgb 12.4, Hct 37.6, MCV 98.2, MCH 32.5, MCHC 33.1, RDW 13.4, Plt Count 201, MPV 9.7, Neut % (Auto) 58.9, Lymph % (Auto) 30.7, Archule[place] % (Auto) 8.9, Eos % (Auto) 1.2, Baso % (Auto) 0.3, Neut # (Auto) 3.5, Lymph # (Auto) 1.8, [place] # (Auto) 0.5, Eos # (Auto) 0.1, Baso # (Auto) 0.0 Parameters for the myeloma as of 09/13/2018 -quantitative kappa light chain 15.3, quantitative lambda light chain 13.0, kappa lambda ratio 1.18 which is a normal ratio. Total protein is 5.9 g with an albumin of 3.6 g Serum creatinine 2.42, BUN 27 - Impressions Any impression(s) listed above is documentation that was entered by the reading physician into a diagnostic report(s) for Hailee Trivedi. I have reviewed the report(s) and am incorporating any findings in the treatment plan of this patient where applicable. Assessment and Plan (1) Dizziness Status: Acute Uncertain etiology, no focal neurological symptoms today. -Unlikely to be related to Daratumumab, but would hold treatment for the week as her disease has been well controlled. There is an extensive neurology note in the chart and I read that in great detail. The results of the MRI is reported in that neurology note. They will be following her. It would seem most likely that the complaints of dizziness and the diplopia on lateral gaze are most likely to be a result of her advanced atherosclerotic cerebrovascular disease and unrelated to either the myeloma or the daratumumab. She is currently on Plavix and will be seeing neuro - (2) Multiple myeloma in remission Status: Chronic kappa light chain multiple myeloma, refractory to Velcade dexamethasone and cyclophosphamide, could not tolerate Revlimid, progressed on Carfilzomib. -Ongoing brisk response to single agent Daratumumab. No overt adverse effects, doubt the dizziness is related to Daratumumab. -She knows to call me if questions or concerns arise. She will continue with her dose of daratumumab today. When she comes back in 1 month I have added an IEP to the serum and the urine to see if there is any demonstrable kappa light chain still present. Hopefully this will be available when she sees the physician next month. We have gone over her current orders and there are no changes (3) Steroid-induced hyperglycemia Status: Chronic DM-II, hyperglycemia due to steroids. She is taking insulin 28 units on treatment days. -HbA1c 7.4 from 7.7, Solu-Medrol decreased to 20 mg, plan to discontinue in the future if she does ok with it. -She was instructed to decrease her insulin to 10 units from 28 units. 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 She has seen neurology for evaluation and the results are all summarized in the HPI and the conclusions above (6) B12 deficiency anemia Status: Chronic - Continue Vit B12 injection monthly. (7) Weakness Status: Acute (8) Hearing loss Status: Chronic (9) Double vision Status: Chronic Please see the neurology evaluation reported above. This probably has origin in her atherosclerotic disease (10) HTN (hypertension) Qualifiers: Hypertension type: essential hypertension Qualified Code(s): I10 - Essential (primary) hypertension Status: Chronic She quit taking blood pressure medications due to low BP. Family physician is aware. - Chemo Plan Goal of Treatment: Palliative - Time Spent with Patient Greater than 50% of time spent with patient was for coordination of care (as documented) and [id number] counseling of patient and/or family. 25 - 35 minutes Dictated By: Jacklyn Cornelius MD DD/ 0838 Signed By: <Electronically signed by Jacklyn Cornelius MD> 09/20/18 0890 [facility] Work Phone: [phone] Progress note Author Margarito Buenrostro [facility] August 09, 2018 9:41am Note Date/Time August 09, 2018 9:29am [facility] at [address] [address] Hem/Onc Follow Up Note - OP Signed Patient: Hailee Trivedi MR#: [id number] : 1940 Acct:[id number] Age/Sex: 78 / F Type: REG RCR Copies to: Curt Clark MD~ Subjective Date/Time of Service: Date of Service: 08/09/2018 Time of Service: 09:28 Chief Complaint: Follow up appt on treatment multiple myeloma has infected toothbeing treated - Diagnosis DIAGNOSIS: 1. [place] light chain multiple myeloma diagnosed by Dr. Motley by free light chain assay showing 7000 mg kappa, creatinine up to four and bone marrow biopsy in 07/05/2014 reveals 30% of cellularity with 50% involvement, of cyclin D1 positive, normal FISH and cytogenetics. -ISS stage III, beta-2 and microglobulin 3.8 on 07/05/2014, albumin 3.5. -Bone survey showed lucent areas in the calvarium and distal right humerus. -Autologous stem cell transplantation evaluated by Dr. Yossi Bradshaw, not a candidate. 2. Iron deficiency anemia, received IV iron in July 2014. 3. Developed hypertensive emergency after taken off antihypertensive drugs due to low BP (chest pain with BP 244/112) on 11/20/2015, CT angiogram did not show aortic dissection and echocardiogram showed LVEF of 60%, stress test negative. Troponin upon discharge was 0.17. CK-MB was 2.5. 4. Severe VitB12 deficiency diagnosed 12/2015, presentation was dizziness. PAST MEDICAL HISTORY: HTN, DM-II, CKD-3. SOCIAL HISTORY: Lives with in [place]. HPI: Mrs. Trivedi is seen as scheduled. She reports feeling dizzy for the past three days, she was evaluated by neurology as outpatient, she will have MRI and MRA tomorrow. Otherwise she feels fine. - Summary of Therapies Summary of Therapies: 1. Velcade/dexamethasone induction regimen with dexamethasone 20 mg started 07/08/2014, kappa light chain decreased to 833 and 33 from 7000 in October 2014. 2. Tried Revlimid in September 2014, discontinued 11/02/2014 due to suspicion that it may cause itching. 3. Velcade 1.3 mg/m sq weekly along with dexamethasone 6 mg p.o. weekly, light chain improved from 833 to 570 as of 04/18/2015, then increased again in May 2015. 4. Velcade induction regimen restarted with dexamethasone 20 mg p.o. weekly on 07/01 patient experienced extreme fatigue due to dehydration from hyperglycemia and diarrhea. 5. Velcade 1.3 mg with dexamethasone 6 mg and cyclophosphamide 300 mg IV [id number]/15/2015, developed grade 2 anemia, fatigue and grade 3 diarrhea. Cyclophosphamide was switched to p.o. 50 mg three weeks on, one week off on 09/26/2015, however, free kappa light chain went down to 1179 on 10/24/2015. 6. Carfilzomib 20 mg/m2 on days 1,2,8,9,15,16 of a 21 day cycle, started on 11/04/2015-02/24/2016. Discontinued due to disease progression. -Dose escalated to 27mg/m2 in cycle 2, on 12/17/2015. Dose reduced to 20mg/m2 on cycle 4 day 15 due to grade 2 fatigue. CURRENT THERAPY 1. Daratumumab 03/17/2016-. -03/17/16-05/05/16, weekly. -05/19/16-08/25/16, biweekly. -09/22/16-, every 4 weeks. 09/21/2017 on hold due to dizziness, to be resumed 12/21/2017. 2. VitB12 injections, monthly. Subjective/ROS - Narrative: CONSTITUTIONAL: Gaining weight, no fever, chills. Weakness in legs per HPI CARDIOVASCULAR: No chest pain, chest pressure or chest discomfort. No palpitations or edema. RESPIRATORY: No shortness of breath, cough or hemoptysis. GASTROINTESTINAL: No dysphagia, nausea, vomiting or diarrhea. No abdominal pain,melena, hematochezia. GENITOURINARY: No dysuria, urinary frequency or urgency. NEUROLOGICAL: Positive for dizziness. MUSCULOSKELETAL: No pain. Home Medications & Allergies Allergies Allergy/AdvReac Type Severity Reaction Status Date / Time lenalidomide [From Revlimid] Allergy Mild Rash Verified 07/12/18 09:13 oxybutynin Allergy Rash Verified 07/12/18 09:13 pregabalin [From Lyrica] Allergy double Verified 07/12/18 09:13 vision Home Medications Medication Instructions Recorded Confirmed Type Fish Oil 2 cap PO BID 07/14/17 08/09/18 History aspirin [Aspir-81] 1 tab PO QDAY 07/14/17 08/09/18 History atorvastatin 1 tab PO QDAY 07/14/17 08/09/18 History carvedilol 1 tab PO BID 07/14/17 08/09/18 History ergocalciferol (vitamin D2) 1 cap PO QDAY 07/14/17 08/09/18 History [Vitamin D2] insulin lispro [Humalog KwikPen] 1 unit SUB-Q DIRECTED 07/14/17 08/09/18 History sodium bicarbonate See Label Instructions .ROUTE 07/14/17 08/09/18 History .COMPLEX acyclovir 1 tab PO BID #180 tab 03/23/18 08/09/18 Rx Objective - Height/Weight Height/Weight: Height 5 ft 6 in Weight 86.5 kg BSA for Today's Weight 2.01 - Vital Signs Vital Signs: Temp 98.1 F 08/09/18 08:05 Pulse 70 08/09/18 08:05 Resp 20 08/09/18 08:05 BP 136/66 08/09/18 08:05 Pulse Ox 98 08/09/18 08:05 - Pain Generalized Back Pain Intensity: 6 Left Arm Pain Intensity: 6 Generalized Teeth Pain Intensity: 3 - Emotional Needs Assessment Emotional Needs Assessment: Emotional Needs Identified? No Distress Screening Total 0 Support System Family - ECOG Performance Status ECOG Score: 1 Physical Exam Narrative: GENERAL APPEARANCE: In no acute distress. Obese. HEENT: Moist and clear, no oral thrush. LUNGS: Clear to auscultation bilaterally, no rales, rhonchi, or crackles. CARDIOVASCULAR: S1 and S2, regular rate and rhythm, no murmurs, gallops, rubs. ABDOMEN: Soft, nontender, bowel sounds normal. No hepatosplenomegaly. No mass palpated. EXTREMITIES: Trace edema . NEUROLOGIC: Grossly intact, she becomes unsteady after stand up, then can walk with a cane and maintain her balance. Results - Labs CBC & Chem 7: 06/28/18 10:45 06/28/18 10:45 - Impressions Any impression(s) listed above is documentation that was entered by the reading physician into a diagnostic report(s) for Hailee Trivedi. I have reviewed the report(s) and am incorporating any findings in the treatment plan of this patient where applicable. Assessment and Plan (1) Dizziness Status: Acute Uncertain etiology, no focal neurological symptoms today. -Unlikely to be related to Daratumumab, but would hold treatment for the week adonis disease has been well controlled. -She is to call on Tuesday to review MRI brain results, if benign, can proceed totreatment next week. (2) Multiple myeloma in remission Status: Chronic kappa light chain multiple myeloma, refractory to Velcade dexamethasone and cyclophosphamide, could not tolerate Revlimid, progressed on Carfilzomib. -Ongoing brisk response to single agent Daratumumab. No overt adverse effects, doubt the dizziness is related to Daratumumab. -Would hold Dratumumab today, delay to next week. She is going to call us on Tuesday to review her MRI report (to be done in [place]). See in 5 weeks by SHAHID Bell, plan to repeat K/L ratio in 4 weeks. -Continue Acyclovir 400mg bid for Herpes Zoster prophylaxis. -She knows to call me if questions or concerns arise. (3) Steroid-induced hyperglycemia Status: Chronic DM-II, hyperglycemia due to steroids. She is taking insulin 28 units on treatment days. -HbA1c 7.4 from 7.7, Solu-Medrol decreased to 20 mg, plan to discontinue in the future if she does ok with it. -She was instructed to decrease her insulin to 10 units from 28 units. 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 -Last dose was 04/19/2018, should be ok if she has invasive dental procedure planned (need teeth to be pulled). (5) Left facial numbness Status: Acute (6) B12 deficiency anemia Status: Chronic (7) Weakness Status: Acute (8) Hearing loss Status: Chronic (9) Double vision Status: Chronic (10) HTN (hypertension) Qualifiers: Hypertension type: essential hypertension Qualified Code(s): I10 - Essential (primary) hypertension Status: Chronic - Chemo Plan Goal of Treatment: Palliative - Time Spent with Patient Greater than 50% of time spent with patient was for coordination of care (as documented) and [id number] counseling of patient and/or family. 25 - 35 minutes Dictated By: Margarito Buenrostro MD DD/ 6 Signed By: <Electronically signed by Margarito Buenrostro MD> 08/09/18940 [facility] Work Phone: [phone]) 321-745808-29-2018 Progress note Author Margarito Buenrostro [facility] July 12, 2018 9:09am Note Date/Time July 12, 2018 8: 33am [facility] [place] [address] Hem/Onc Follow Up Note - OP Signed Patient: Hailee Trivedi MR#: [id number] : 1940 Acct:[id number] Age/Sex: 78 / F Type: REG RCR Copies to: Curt Clark MD~ Subjective Date/Time of Service: Date of Service: 07/12/2018 Time of Service: 08:33 Chief Complaint: Follow up appt treatment today - Diagnosis DIAGNOSIS: 1. [place] light chain multiple myeloma diagnosed by Dr. Motley by free light chain assay showing 7000 mg kappa, creatinine up to four and bone marrow biopsy in 07/05/2014 reveals 30% of cellularity with 50% involvement, of cyclin D1 positive, normal FISH and cytogenetics. -ISS stage III, beta-2 and microglobulin 3.8 on 07/05/2014, albumin 3.5. -Bone survey showed lucent areas in the calvarium and distal right humerus. -Autologous stem cell transplantation evaluated by Dr. Yossi Bradshaw, not a candidate. 2. Iron deficiency anemia, received IV iron in July 2014. 3. Developed hypertensive emergency after taken off antihypertensive drugs due to low BP (chest pain with BP 244/112) on 11/20/2015, CT angiogram did not show aortic dissection and echocardiogram showed LVEF of 60%, stress test negative. Troponin upon discharge was 0.17. CK-MB was 2.5. 4. Severe VitB12 deficiency diagnosed 12/2015, presentation was dizziness. PAST MEDICAL HISTORY: HTN, DM-II, CKD-3. SOCIAL HISTORY: Lives with in [place]. HPI: Mrs. Trivedi is seen as scheduled. She developed numbness tingling involving left side of her body since 06/28/18. There is no focal neuro deficit. She had a CT of head, which did not report acute abnormality. Otherwise she feels fine.Her recent HbA1c was 7.4, she takes 28 units of insulin on day of Daratumumab. - Summary of Therapies Summary of Therapies: 1. Velcade/dexamethasone induction regimen with dexamethasone 20 mg started 07/08/2014, kappa light chain decreased to 833 and 33 from 7000 in October 2014. 2. Tried Revlimid in September 2014, discontinued 11/02/2014 due to suspicion that it may cause itching. 3. Velcade 1.3 mg/m sq weekly along with dexamethasone 6 mg p.o. weekly, light chain improved from 833 to 570 as of 04/18/2015, then increased again in May 2015. 4. Velcade induction regimen restarted with dexamethasone 20 mg p.o. weekly on 07/01 patient experienced extreme fatigue due to dehydration from hyperglycemia and diarrhea. 5. Velcade 1.3 mg with dexamethasone 6 mg and cyclophosphamide 300 mg IV [id number]/2015, developed grade 2 anemia, fatigue and grade 3 diarrhea. Cyclophosphamide was switched to p.o. 50 mg three weeks on, one week off on 09/26/2015, however, free kappa light chain went down to 1179 on 10/24/2015. 6. Carfilzomib 20 mg/m2 on days 1,2,8,9,15,16 of a 21 day cycle, started on 11/04/2015-02/24/2016. Discontinued due to disease progression. -Dose escalated to 27mg/m2 in cycle 2, on 12/17/2015. Dose reduced to 20mg/m2 on cycle 4 day 15 due to grade 2 fatigue. CURRENT THERAPY 1. Daratumumab 03/17/2016-. -03/17/16-05/05/16, weekly. -05/19/16-08/25/16, biweekly. -09/22/16-, every 4 weeks. 09/21/2017 on hold due to dizziness, to be resumed 12/21/2017. 2. VitB12 injections, monthly. Subjective/ROS - Narrative: CONSTITUTIONAL: Gaining weight, no fever, chills. Weakness in legs per HPI CARDIOVASCULAR: No chest pain, chest pressure or chest discomfort. No palpitations or edema. RESPIRATORY: No shortness of breath, cough or hemoptysis. GASTROINTESTINAL: No dysphagia, nausea, vomiting or diarrhea. No abdominal pain,melena, hematochezia. GENITOURINARY: No dysuria, urinary frequency or urgency. NEUROLOGICAL: Positive for left side numbness/tingling, stable. MUSCULOSKELETAL: No pain. Home Medications & Allergies Allergies Allergy/AdvReac Type Severity Reaction Status Date / Time lenalidomide [From Revlimid] Allergy Mild Rash Verified 07/04/18 11:43 oxybutynin Allergy Rash Verified 07/04/18 11:43 pregabalin [From Lyrica] Allergy double Verified 07/04/18 11:43 vision Home Medications Medication Instructions Recorded Confirmed Type Fish Oil 2 cap PO BID 07/14/17 07/12/18 History aspirin [Aspir-81] 1 tab PO QDAY 07/14/17 07/12/18 History atorvastatin 1 tab PO QDAY 07/14/17 07/12/18 History carvedilol 1 tab PO BID 07/14/17 07/12/18 History ergocalciferol (vitamin D2) 1 cap PO QDAY 07/14/17 07/12/18 History [Vitamin D2] insulin lispro [Humalog KwikPen] 1 unit SUB-Q DIRECTED 07/14/17 07/12/18 History sodium bicarbonate See Label Instructions .ROUTE 07/14/17 07/12/18 History .COMPLEX acyclovir 1 tab PO BID #180 tab 03/23/18 07/12/18 Rx Objective - Height/Weight Height/Weight: Height 5 ft 6.14 in Weight 86.7 kg BSA for Today's Weight 2.00 - Vital Signs Vital Signs: Temp 98 F 07/12/18 08:08 Pulse 64 07/12/18 08:08 Resp 20 07/12/18 08:08 BP 138/63 07/12/18 08:08 Pulse Ox 97 07/12/18 08:08 - Pain Generalized Back Pain Intensity: 6 Left Arm Pain Intensity: 6 - Emotional Needs Assessment Emotional Needs Assessment: Emotional Needs Identified? No Distress Screening Total 0 Support System Family - ECOG Performance Status ECOG Score: 1 Physical Exam Narrative: GENERAL APPEARANCE: In no acute distress. Obese. HEENT: Moist and clear, no oral thrush. LUNGS: Clear to auscultation bilaterally, no rales, rhonchi, or crackles. CARDIOVASCULAR: S1 and S2, regular rate and rhythm, no murmurs, gallops, rubs. ABDOMEN: Soft, nontender, bowel sounds normal. No hepatosplenomegaly. No mass palpated. EXTREMITIES: Trace edema . NEUROLOGIC: Grossly intact. Results - Labs CBC & Chem 7: 06/28/18 10:45 06/28/18 10:45 Labs: 07/04/18: WBC 7.3, Hgb 12.6, platelet 169, normal differential Sodium 138, potassium 4.2, creatinine 2.55, calcium 8.7 Free [place] LC, Quant 14.0 mg/L (3.3-19.4) 06/28/18 10:45 Free Lambda LC, Quant 9.7 mg/L (5.7-26.3) 06/28/18 10:45 Free [place]/Lambda Ratio 1.44 (0.26-1.65) 06/28/18 10:45 Total Bilirubin 0.7 mg/dL (0.3-1.2) 06/28/18 10:45 AST 17 U/L (10-42) 06/28/18 10:45 ALT 13 U/L (10-60) 06/28/18 10:45 Alkaline Phosphatase 80 U/L (32-92) 06/28/18 10:45 Total Protein 6.3 gm/dL (6.1-7.9) 06/28/18 10:45 Albumin 3.8 gm/dL (3.2-5.5) 06/28/18 10:45 Assessment and Plan (1) Multiple myeloma in remission Status: Chronic kappa light chain multiple myeloma, refractory to Velcade dexamethasone and cyclophosphamide, could not tolerate Revlimid, progressed on Carfilzomib. -Ongoing brisk response to single agent Daratumumab. No overt AEs, doubt the numbness/tingling is related to Daratumumab. -Proceed to Dratumumab today. See in 4 weeks, plan to repeat K/L ratio in 8 weeks. -Continue Acyclovir 400mg bid for Herpes Zoster prophylaxis. -She knows to call me if questions or concerns arise. (2) Steroid-induced hyperglycemia Status: Chronic DM-II, hyperglycemia due to steroids. She is taking insulin 28 units on treatment days. -HbA1c 7.4 from 7.7, would further decrease Solu-Medrol to 20 mg from 60 mg, plan to discontinue in the future if she does ok with it. -She is instructed to decrease her insulin to 10 units from 28 units today, thendose prn based on sugar level (she checks 4 times daily) (3) Left facial numbness Status: Acute Stable, no overt neurological deficit. Her MRI brain from 12/2017 did not show significant pathology. -Will continue Daratumumab. She will see Neurology for an evaluation. (4) B12 deficiency anemia Status: Chronic - Continue Vit B12 injection monthly. 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 -She does not have active dental issues. We discussed that should she need invasive dental work, would avoid Pamidronate 1 month before and 1 month after. -Would stop since she stayed in remission for total of 2 years. (6) Weakness Status: Acute (7) Hearing loss Status: Chronic (8) Double vision Status: Chronic (9) HTN (hypertension) Qualifiers: Hypertension type: essential hypertension Qualified Code(s): I10 - Essential (primary) hypertension Status: Chronic - Chemo Plan Goal of Treatment: Palliative - Time Spent with Patient Greater than 50% of time spent with patient was for coordination of care (as documented) and [id number] counseling of patient and/or family. 25 - 35 minutes Dictated By: Margarito Buenrostro MD DD/ 2 Signed By: <Electronically signed by Margarito Buenrostro MD> 07/12/18 0909 [facility] Work Phone: [phone] 350-881507-05-2018 Progress note Author Margarito Buenrostro [facility] May 18, 2018 8:51am Note Date/Time May 18, 2018 8:44a m [facility] at [address] [address] Hem/Onc Follow Up Note - OP Signed Patient: Hailee Trivedi MR#: [id number] : 1940 Acct:[id number] Age/Sex: 78 / F Type: REG RCR Copies to: Curt Clark MD~ Subjective Date/Time of Service: Date of Service: 05/18/2018 Time of Service: 08:42 Chief Complaint: weak today - Diagnosis DIAGNOSIS: 1. [place] light chain multiple myeloma diagnosed by Dr. Motley by free light chain assay showing 7000 mg kappa, creatinine up to four and bone marrow biopsy in 07/05/2014 reveals 30% of cellularity with 50% involvement, of cyclin D1 positive, normal FISH and cytogenetics. -ISS stage III, beta-2 and microglobulin 3.8 on 07/05/2014, albumin 3.5. -Bone survey showed lucent areas in the calvarium and distal right humerus. -Autologous stem cell transplantation evaluated by Dr. Yossi Bradshaw, not a candidate. 2. Iron deficiency anemia, received IV iron in July 2014. 3. Developed hypertensive emergency after taken off antihypertensive drugs due to low BP (chest pain with BP 244/112) on 11/20/2015, CT angiogram did not show aortic dissection and echocardiogram showed LVEF of 60%, stress test negative. Troponin upon discharge was 0.17. CK-MB was 2.5. 4. Severe VitB12 deficiency diagnosed 12/2015, presentation was dizziness. PAST MEDICAL HISTORY: HTN, DM-II, CKD-3. SOCIAL HISTORY: Lives with in [place]. HPI: Mrs. Trivedi is seen as scheduled. She reports that she feels weak since Tuesday, primarily involving lower extremities. Has some short of breath, which she thinks is due to the hot weather. Otherwise she feels fine - Summary of Therapies Summary of Therapies: 1. Velcade/dexamethasone induction regimen with dexamethasone 20 mg started 07/08/2014, kappa light chain decreased to 833 and 33 from 7000 in October 2014. 2. Tried Revlimid in September 2014, discontinued 11/02/2014 due to suspicion that it may cause itching. 3. Velcade 1.3 mg/m sq weekly along with dexamethasone 6 mg p.o. weekly, light chain improved from 833 to 570 as of 04/18/2015, then increased again in May 2015. 4. Velcade induction regimen restarted with dexamethasone 20 mg p.o. weekly on 07/01 patient experienced extreme fatigue due to dehydration from hyperglycemia and diarrhea. 5. Velcade 1.3 mg with dexamethasone 6 mg and cyclophosphamide 300 mg IV [id number]/2015, developed grade 2 anemia, fatigue and grade 3 diarrhea. Cyclophosphamide was switched to p.o. 50 mg three weeks on, one week off on 09/26/2015, however, free kappa light chain went down to 1179 on 10/24/2015. 6. Carfilzomib 20 mg/m2 on days 1,2,8,9,15,16 of a 21 day cycle, started on 11/04/2015-02/24/2016. Discontinued due to disease progression. -Dose escalated to 27mg/m2 in cycle 2, on 12/17/2015. Dose reduced to 20mg/m2 on cycle 4 day 15 due to grade 2 fatigue. CURRENT THERAPY 1. Daratumumab 03/17/2016-. -03/17/16-05/05/16, weekly. -05/19/16-08/25/16, biweekly. -09/22/16-, every 4 weeks. 09/21/2017 on hold due to dizziness, to be resumed 12/21/2017. 2. VitB12 injections, monthly. Subjective/ROS - Narrative: CONSTITUTIONAL: Gaining weight, no fever, chills. Weakness in legs per HPI CARDIOVASCULAR: No chest pain, chest pressure or chest discomfort. No palpitations or edema. RESPIRATORY: No shortness of breath, cough or hemoptysis. GASTROINTESTINAL: No dysphagia, nausea, vomiting or diarrhea. No abdominal pain,melena, hematochezia. GENITOURINARY: No dysuria, urinary frequency or urgency. NEUROLOGICAL: Positive for double vision, improved. MUSCULOSKELETAL: Bilateral arm pain per HPI. Home Medications & Allergies Allergies Allergy/AdvReac Type Severity Reaction Status Date / Time lenalidomide [From Revlimid] Allergy Mild Rash Verified 05/18/18 08:20 oxybutynin Allergy Rash Verified 04/19/18 09:14 pregabalin [From Lyrica] Allergy double Verified 05/18/18 08:20 vision Home Medications Medication Instructions Recorded Confirmed Type Fish Oil 2 cap PO QDAY 07/14/17 05/18/18 History aspirin [Aspir-81] 1 tab PO QDAY 07/14/17 05/18/18 History atorvastatin 1 tab PO QDAY 07/14/17 05/18/18 History carvedilol 1 tab PO QDAY 07/14/17 05/18/18 History ergocalciferol (vitamin D2) 1 cap PO QDAY 07/14/17 05/18/18 History [Vitamin D2] insulin lispro [Humalog KwikPen] 1 unit SUB-Q DIRECTED 07/14/17 05/18/18 History sodium bicarbonate 1 tab PO TID 07/14/17 05/18/18 History hydrocodone-acetaminophen 1 tab PO Q4-6H PRN 03/15/18 05/18/18 History ranitidine HCl 150 mg PO QHS 03/15/18 05/18/18 History acyclovir 1 tab PO BID #180 tab 03/23/18 05/18/18 Rx Objective - Height/Weight Height/Weight: Height 5 ft 6 in Weight 84.187 kg BSA for Today's Weight 1.98 - Vital Signs Vital Signs: Temp 98.2 F 05/18/18 08:08 Pulse 75 05/18/18 08:08 Resp 21 05/18/18 08:08 BP 122/60 05/18/18 08:08 Pulse Ox 99 05/18/18 08:08 - Pain Generalized Back Pain Intensity: 6 Left Arm Pain Intensity: 6 - Emotional Needs Assessment Emotional Needs Assessment: Emotional Needs Identified? No Distress Screening Total 0 Support System Family - ECOG Performance Status ECOG Score: 1 Physical Exam Narrative: GENERAL APPEARANCE: In no acute distress. Obese. HEENT: Moist and clear, no oral thrush. LUNGS: Clear to auscultation bilaterally, no rales, rhonchi, or crackles. CARDIOVASCULAR: S1 and S2, regular rate and rhythm, no murmurs, gallops, rubs. ABDOMEN: Soft, nontender, bowel sounds normal. No hepatosplenomegaly. No mass palpated. EXTREMITIES: Trace edema . Proximal muscle weakness in legs. NEUROLOGIC: Grossly intact. Results - Labs CBC & Chem 7: 05/09/18 13:45 05/09/18 13:45 Labs: Free [place] LC, Quant 15.0 mg/L (3.3-19.4) 05/09/18 13:45 Free Lambda LC, Quant 10.8 mg/L (5.7-26.3) 05/09/18 13:45 Free [place]/Lambda Ratio 1.39 (0.26-1.65) 05/09/18 13:45 HbA1C 7.7 Assessment and Plan (1) Multiple myeloma in remission Status: Chronic kappa light chain multiple myeloma, refractory to Velcade dexamethasone and cyclophosphamide, could not tolerate Revlimid, progressed on Carfilzomib. -Ongoing brisk response to single agent Daratumumab. No overt AEs. She developed muscle weakness in the last 4 days, doubt related to Dratumumab, woulddecrease Solu-Medrol to 60 mg, and discontinue prednisone p.o. -Proceed to Dratumumab today. See in 4 weeks, with K/L ratio to be drawn in 8 weeks. -Continue Acyclovir 400mg bid for Herpes Zoster prophylaxis. -She knows to call me if questions or concerns arise. (2) B12 deficiency anemia Status: Chronic - Continue Vit B12 injection monthly. 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 -She does not have active dental issues. We discussed that should she need invasive dental work, would avoid Pamidronate 1 month before and 1 month after. -Would stop since she stayed in remission for total of 2 years. (4) Weakness Status: Acute She developed muscle weakness in the last 4 days, doubt related to Dratumumab, would decrease Solu-Medrol to 60 mg, and discontinue prednisone p.o. (5) Steroid-induced hyperglycemia Status: Chronic DM-II, hyperglycemia due to steroids. She is taking insulin 15units qhs. -HbA1c 7.7, would decrease Solu-Medrol to 60 mg, and discontinue prednisone p.o. (6) Hearing loss Status: Chronic (7) Double vision Status: Chronic (8) HTN (hypertension) Qualifiers: Hypertension type: essential hypertension Qualified Code(s): I10 - Essential (primary) hypertension Status: Chronic - Chemo Plan Goal of Treatment: Palliative - Time Spent with Patient Greater than 50% of time spent with patient was for coordination of care (as documented) and [id number] counseling of patient and/or family. Greater than 35 minutes Dictated By: Margarito Buenrostro MD DD/ 0842 Signed By: <Electronically signed by Margarito Buenrostro MD> 05/18/18 0851 [facility] Work Phone: [phone] Progress note Author Margarito Buenrostro [facility] April 19, 2018 1:08pm Note Date/Time April 19, 2018 8:33a m [facility] at [address] [address] Hem/Onc Follow Up Note - OP Signed Patient: Hailee Trivedi MR#: [id number] : 1940 Acct:[id number] Age/Sex: 77 / F Type: REG RCR Copies to: Curt Clark MD~ Subjective Date/Time of Service: Date of Service: 04/19/2018 Time of Service: 08:32 Chief Complaint: Follow up appt - Diagnosis DIAGNOSIS: 1. [place] light chain multiple myeloma diagnosed by Dr. Motley by free light chain assay showing 7000 mg kappa, creatinine up to four and bone marrow biopsy in 07/05/2014 reveals 30% of cellularity with 50% involvement, of cyclin D1 positive, normal FISH and cytogenetics. -ISS stage III, beta-2 and microglobulin 3.8 on 07/05/2014, albumin 3.5. -Bone survey showed lucent areas in the calvarium and distal right humerus. -Autologous stem cell transplantation evaluated by Dr. Yossi Bradshaw, not a candidate. 2. Iron deficiency anemia, received IV iron in July 2014. 3. Developed hypertensive emergency after taken off antihypertensive drugs due to low BP (chest pain with BP 244/112) on 11/20/2015, CT angiogram did not show aortic dissection and echocardiogram showed LVEF of 60%, stress test negative. Troponin upon discharge was 0.17. CK-MB was 2.5. 4. Severe VitB12 deficiency diagnosed 12/2015, presentation was dizziness. PAST MEDICAL HISTORY: HTN, DM-II, CKD-3. SOCIAL HISTORY: Lives with in [place]. HPI: Mrs. Trivedi is seen as scheduled. She reports doing well, she denies fever or chills. Denies headaches. She has good appetite. - Summary of Therapies Summary of Therapies: 1. Velcade/dexamethasone induction regimen with dexamethasone 20 mg started 07/08/2014, kappa light chain decreased to 833 and 33 from 7000 in October 2014. 2. Tried Revlimid in September 2014, discontinued 11/02/2014 due to suspicion that it may cause itching. 3. Velcade 1.3 mg/m sq weekly along with dexamethasone 6 mg p.o. weekly, light chain improved from 833 to 570 as of 04/18/2015, then increased again in May 2015. 4. Velcade induction regimen restarted with dexamethasone 20 mg p.o. weekly on 07/01 patient experienced extreme fatigue due to dehydration from hyperglycemia and diarrhea. 5. Velcade 1.3 mg with dexamethasone 6 mg and cyclophosphamide 300 mg IV [id number]/15/2015, developed grade 2 anemia, fatigue and grade 3 diarrhea. Cyclophosphamide was switched to p.o. 50 mg three weeks on, one week off on 09/26/2015, however, free kappa light chain went down to 1179 on 10/24/2015. 6. Carfilzomib 20 mg/m2 on days 1,2,8,9,15,16 of a 21 day cycle, started on 11/04/2015-02/24/2016. Discontinued due to disease progression. -Dose escalated to 27mg/m2 in cycle 2, on 12/17/2015. Dose reduced to 20mg/m2 on cycle 4 day 15 due to grade 2 fatigue. CURRENT THERAPY 1. Daratumumab 03/17/2016-. -03/17/16-05/05/16, weekly. -05/19/16-08/25/16, biweekly. -09/22/16-, every 4 weeks. 09/21/2017 on hold due to dizziness, to be resumed 12/21/2017. 2. VitB12 injections, monthly. Subjective/ROS - Narrative: CONSTITUTIONAL: Gaining weight, no fever, chills, physical strength is better. CARDIOVASCULAR: No chest pain, chest pressure or chest discomfort. No palpitations or edema. RESPIRATORY: No shortness of breath, cough or hemoptysis. GASTROINTESTINAL: No dysphagia, nausea, vomiting or diarrhea. No abdominal pain,melena, hematochezia. GENITOURINARY: No dysuria, urinary frequency or urgency. NEUROLOGICAL: Positive for double vision, improved. MUSCULOSKELETAL: Bilateral arm pain per HPI. Home Medications & Allergies Allergies Allergy/AdvReac Type Severity Reaction Status Date / Time oxybutynin Allergy Rash Verified 04/19/18 09:14 Home Medications Medication Instructions Recorded Confirmed Type Fish Oil 2 cap PO QDAY 07/14/17 04/19/18 History aspirin [Aspir-81] 1 tab PO QDAY 07/14/17 04/19/18 History atorvastatin 1 tab PO QDAY 07/14/17 04/19/18 History carvedilol 1 tab PO QDAY 07/14/17 04/19/18 History ergocalciferol (vitamin D2) 1 cap PO QDAY 07/14/17 04/19/18 History [Vitamin D2] insulin lispro [Humalog KwikPen] 1 unit SUB-Q DIRECTED 07/14/17 04/19/18 History prednisone 1 tab PO DIRECTED 07/14/17 04/19/18 History sodium bicarbonate 1 tab PO TID 07/14/17 04/19/18 History hydrocodone-acetaminophen 1 tab PO Q4-6H PRN 03/15/18 04/19/18 History ranitidine HCl 150 mg PO QHS 03/15/18 04/19/18 History acyclovir 1 tab PO BID #180 tab 03/23/18 04/19/18 Rx Objective - Height/Weight Height/Weight: Height 5 ft 6 in Weight 84.1 kg BSA for Today's Weight 1.97 - Vital Signs Vital Signs: Temp 98 F 04/19/18 08:10 Pulse 58 L 04/19/18 08:10 Resp 20 04/19/18 08:10 BP 150/57 H 04/19/18 08:10 Pulse Ox 98 04/19/18 08:10 - Pain Generalized Back Pain Intensity: 6 Left Arm Pain Intensity: 6 - Emotional Needs Assessment Emotional Needs Assessment: Emotional Needs Identified? No Distress Screening Total 0 Support System Family - ECOG Performance Status ECOG Score: 1 Results - Labs CBC & Chem 7: 03/08/18 11:50 03/08/18 11:50 Assessment and Plan (1) Multiple myeloma in remission Status: Chronic kappa light chain multiple myeloma, refractory to Velcade dexamethasone and cyclophosphamide, could not tolerate Revlimid, progressed on Carfilzomib. -Ongoing brisk response to single agent Daratumumab. No overt AEs. -Results from outsidepending. Proceed to Dratumumab today. See in 4 weeks, with K/L ratio to be drawn in 3 weeks. -Continue Acyclovir 400mg bid for Herpes Zoster prophylaxis. -She knows to call me if questions or concerns arise. (2) B12 deficiency anemia Status: Chronic - Continue Vit B12 injection monthly. 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 -She does not have active dental issues. We discussed that should she need invasive dental work, would avoid Pamidronate 1 month before and 1 month after. -Plan to stop once she stays in remission for total of 2 years, 05/2018. (4) Steroid-induced hyperglycemia Status: Chronic DM-II, hyperglycemia due to steroids. She is taking insulin 15units qhs. -Repeat HbA1c in 3 weeks. If still high on next reading, may need to see Endocrinology. (5) Hearing loss Status: Chronic -Managed by ENT, improving by self (6) Double vision Status: Chronic Unclear etiology, improving. -She had brain MRI, no concern. (7) HTN (hypertension) Qualifiers: Hypertension type: essential hypertension Qualified Code(s): I10 - Essential (primary) hypertension Status: Chronic She quit taking blood pressure medications due to low BP. Family physician is aware. - Chemo Plan Goal of Treatment: Palliative - Time Spent with Patient Greater than 50% of time spent with patient was for coordination of care (as documented) and [id number] counseling of patient and/or family. 25 - 35 minutes Dictated By: Margarito Buenrostro MD DD/ [id number] Signed By: <Electronically signed by Margarito Buenrostro MD> 04/19/18 2000 [facility] Work Phone: [phone] 122-100005-02-2018 Progress note Author Margarito Buenrostro [facility] March 15, 2018 8:43am Note Date/Time March 15, 2018 8:38am [facility] [place] [address] Hem/Onc Follow Up Note - OP Signed Patient: Hailee Trivedi MR#: [id number] : 1940 Acct:[id number] Age/Sex: 77 / F Type: REG RCR Copies to: Curt Clark MD, Patrick MD~ Subjective Date/Time of Service: Date of Service: 03/15/2018 Time of Service: 08:37 Chief Complaint: Follow up appt - Diagnosis DIAGNOSIS: 1. [place] light chain multiple myeloma diagnosed by Dr. Motley by free light chain assay showing 7000 mg kappa, creatinine up to four and bone marrow biopsy in 07/05/2014 reveals 30% of cellularity with 50% involvement, of cyclin D1 positive, normal FISH and cytogenetics. -ISS stage III, beta-2 and microglobulin 3.8 on 07/05/2014, albumin 3.5. -Bone survey showed lucent areas in the calvarium and distal right humerus. -Autologous stem cell transplantation evaluated by Dr. Yossi Bradshaw, not a candidate. 2. Iron deficiency anemia, received IV iron in July 2014. 3. Developed hypertensive emergency after taken off antihypertensive drugs due to low BP (chest pain with BP 244/112) on 11/20/2015, CT angiogram did not show aortic dissection and echocardiogram showed LVEF of 60%, stress test negative. Troponin upon discharge was 0.17. CK-MB was 2.5. 4. Severe VitB12 deficiency diagnosed 12/2015, presentation was dizziness. PAST MEDICAL HISTORY: HTN, DM-II, CKD-3. SOCIAL HISTORY: Lives with in [place]. HPI: Mrs. Trivedi is seen as scheduled. She reports had lithotripsy, then she developed pain involving bilateral wrist, elbows, and shoulder, primarily in themuscle. She went to [facility], took x-rays, no acute process was seen. The pain has gotten much better, she denies fever or chills. Denies headaches. She has good appetite. - Summary of Therapies Summary of Therapies: 1. Velcade/dexamethasone induction regimen with dexamethasone 20 mg started 07/08/2014, kappa light chain decreased to 833 and 33 from 7000 in October 2014. 2. Tried Revlimid in September 2014, discontinued 11/02/2014 due to suspicion that it may cause itching. 3. Velcade 1.3 mg/m sq weekly along with dexamethasone 6 mg p.o. weekly, light chain improved from 833 to 570 as of 04/18/2015, then increased again in May 2015. 4. Velcade induction regimen restarted with dexamethasone 20 mg p.o. weekly on 07/01 patient experienced extreme fatigue due to dehydration from hyperglycemia and diarrhea. 5. Velcade 1.3 mg with dexamethasone 6 mg and cyclophosphamide 300 mg IV [id number]/2015, developed grade 2 anemia, fatigue and grade 3 diarrhea. Cyclophosphamide was switched to p.o. 50 mg three weeks on, one week off on 09/26/2015, however, free kappa light chain went down to 1179 on 10/24/2015. 6. Carfilzomib 20 mg/m2 on days 1,2,8,9,15,16 of a 21 day cycle, started on 11/04/2015-02/24/2016. Discontinued due to disease progression. -Dose escalated to 27mg/m2 in cycle 2, on 12/17/2015. Dose reduced to 20mg/m2 on cycle 4 day 15 due to grade 2 fatigue. CURRENT THERAPY 1. Daratumumab 03/17/2016-. -03/17/16-05/05/16, weekly. -05/19/16-08/25/16, biweekly. -09/22/16-, every 4 weeks. 09/21/2017 on hold due to dizziness, to be resumed 12/21/2017. 2. VitB12 injections, monthly. Subjective/ROS - Narrative: CONSTITUTIONAL: Gaining weight, no fever, chills, physical strength is better. CARDIOVASCULAR: No chest pain, chest pressure or chest discomfort. No palpitations or edema. RESPIRATORY: No shortness of breath, cough or hemoptysis. GASTROINTESTINAL: No dysphagia, nausea, vomiting or diarrhea. No abdominal pain,melena, hematochezia. GENITOURINARY: No dysuria, urinary frequency or urgency. NEUROLOGICAL: Positive for double vision, improved. MUSCULOSKELETAL: Bilateral arm pain per HPI. Home Medications & Allergies Allergies Allergy/AdvReac Type Severity Reaction Status Date / Time No Known Allergies Allergy Verified 07/27/17 09:02 Home Medications Medication Instructions Recorded Confirmed Type Fish Oil 2 cap PO QDAY 07/14/17 03/15/18 History aspirin [Aspir-81] 1 tab PO QDAY 07/14/17 03/15/18 History atorvastatin 1 tab PO QDAY 07/14/17 03/15/18 History carvedilol 1 tab PO QDAY 07/14/17 03/15/18 History ergocalciferol (vitamin D2) 1 cap PO QDAY 07/14/17 03/15/18 History [Vitamin D2] insulin lispro [Humalog KwikPen] 1 unit SUB-Q DIRECTED 07/14/17 03/15/18 History prednisone 1 tab PO DIRECTED 07/14/17 03/15/18 History sodium bicarbonate 1 tab PO TID 07/14/17 03/15/18 History acyclovir 1 tab PO QDAY #90 tab 11/29/17 03/15/18 Rx cephalexin 250 mg PO DAILY 02/15/18 03/15/18 History oxybutynin chloride 10 mg PO DAILY 02/15/18 03/15/18 History hydrocodone-acetaminophen 1 tab PO Q4-6H PRN 03/15/18 03/15/18 History ranitidine HCl 150 mg PO QHS 03/15/18 03/15/18 History Objective - Height/Weight Height/Weight: Height 5 ft 6 in Weight 82.7 kg BSA for Today's Weight 1.99 - Vital Signs Vital Signs: Last Vital Signs Temp 98 F 03/15/18 08:11 Pulse 65 03/15/18 08:11 Resp 20 03/15/18 08:11 BP 142/67 H 03/15/18 08:11 Pulse Ox 98 03/15/18 08:11 - Pain Generalized Back Pain Intensity: 6 Left Arm Pain Intensity: 6 - Emotional Needs Assessment Emotional Needs Assessment: Emotional Needs Identified? Yes Distress Screening Total 3 Support System Family - ECOG Performance Status ECOG Score: 1 Physical Exam Narrative: GENERAL APPEARANCE: In no acute distress. Obese. HEENT: Moist and clear, no oral thrush. LUNGS: Clear to auscultation bilaterally, no rales, rhonchi, or crackles. CARDIOVASCULAR: S1 and S2, regular rate and rhythm, no murmurs, gallops, rubs. ABDOMEN: Soft, nontender, bowel sounds normal. No hepatosplenomegaly. No mass palpated. EXTREMITIES: Trace edema . NEUROLOGIC: Grossly intact. Musculoskeletal: Arms mildly tender to touch, no spinal tenderness. Results - Labs CBC & Chem 7: 03/08/18 11:50 03/08/18 11:50 Labs: Calcium 9.2 mg/dL (8.2-10.2) 03/08/18 11:50 Total Bilirubin 0.6 mg/dL (0.3-1.2) 03/08/18 11:50 AST 17 U/L (10-42) 03/08/18 11:50 ALT 15 U/L (10-60) 03/08/18 11:50 Alkaline Phosphatase 101 U/L (32-92) H 03/08/18 11:50 Total Protein 6.3 gm/dL (6.1-7.9) 03/08/18 11:50 Albumin 3.8 gm/dL (3.2-5.5) 03/08/18 11:50 Free [place] LC, Quant 18.6 mg/L (3.3-19.4) 03/08/18 11:50 Free Lambda LC, Quant 12.5 mg/L (5.7-26.3) 03/08/18 11:50 Free [place]/Lambda Ratio 1.49 (0.26-1.65) 03/08/18 11:50 Assessment and Plan (1) Multiple myeloma in remission Status: Chronic kappa light chain multiple myeloma, refractory to Velcade dexamethasone and cyclophosphamide, could not tolerate Revlimid, progressed on Carfilzomib. -Ongoing brisk response to single agent Daratumumab. No overt AEs. -Results discussed, renal function and anemia stable. Free light chain level stays low. Resumed Daratumumab, no recurrent dizziness, double vision and hearing loss improved. -The etiology of pain involving muscles in bilateral arms is unclear, currently she is getting better. Due to the concern of compromised immune system through steroids, will delay Daratumumab to next week, orders placed. Continue [id number] bid for Herpes Zoster prophylaxis. See in 5 weeks. -She knows to call me if questions or concerns arise. (2) B12 deficiency anemia Status: Chronic - Continue Vit B12 injection monthly. 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 -She does not have active dental issues. We discussed that should she need invasive dental work, would avoid Pamidronate 1 month before and 1 month after. -Plan to stop once she stays in remission for total of 2 years, 05/2018. (4) Steroid-induced hyperglycemia Status: Chronic DM-II, hyperglycemia due to steroids. She is taking insulin 15units qhs. -Recent HbA1c was high. If still high on next reading, may need to see Endocrinology. (5) Hearing loss Status: Chronic (6) Double vision Status: Chronic (7) HTN (hypertension) Qualifiers: Hypertension type: essential hypertension Qualified Code(s): I10 - Essential (primary) hypertension Status: Chronic - Chemo Plan Goal of Treatment: Palliative - Time Spent with Patient Greater than 50% of time spent with patient was for coordination of care (as documented) and [id number] counseling of patient and/or family. 25 - 35 minutes Dictated By: Margarito Buenrostro MD DD/ [id number] Signed By: <Electronically signed by Margarito Buenrostro MD> 03/15/18 0843 [facility] Work Phone: [phone] Progress note Author Margarito Buenrostro [facility] January 18, 2018 10:51am Note Date/Time January 18, 2018 10:4 4am [facility] [place] [address] Hem/Onc Follow Up Note - OP Signed Patient: Hailee Trivedi MR#: [id number] : 1940 Acct:[id number] Age/Sex: 77 / F Type: REG RCR Copies to: Curt Clark MD~ Subjective Date/Time of Service: Date of Service: 01/18/2018 Time of Service: 10:42 Chief Complaint: Follow up appt - Diagnosis DIAGNOSIS: 1. [place] light chain multiple myeloma diagnosed by Dr. Motley by free light chain assay showing 7000 mg kappa, creatinine up to four and bone marrow biopsy in 07/05/2014 reveals 30% of cellularity with 50% involvement, of cyclin D1 positive, normal FISH and cytogenetics. -ISS stage III, beta-2 and microglobulin 3.8 on 07/05/2014, albumin 3.5. -Bone survey showed lucent areas in the calvarium and distal right humerus. -Autologous stem cell transplantation evaluated by Dr. Yossi Bradshaw, not a candidate. 2. Iron deficiency anemia, received IV iron in July 2014. 3. Developed hypertensive emergency after taken off antihypertensive drugs due to low BP (chest pain with BP 244/112) on 11/20/2015, CT angiogram did not show aortic dissection and echocardiogram showed LVEF of 60%, stress test negative. Troponin upon discharge was 0.17. CK-MB was 2.5. 4. Severe VitB12 deficiency diagnosed 12/2015, presentation was dizziness. PAST MEDICAL HISTORY: HTN, DM-II, CKD-3. SOCIAL HISTORY: Lives with in [place]. HPI: Mrs. Trivedi is seen as scheduled. She reports double vision has improved after a triple to [place]. Her hearing is improving too. Fatigued as usual, denies fever or chills. Denies headaches. She has good appetite. - Summary of Therapies Summary of Therapies: 1. Velcade/dexamethasone induction regimen with dexamethasone 20 mg started 07/08/2014, kappa light chain decreased to 833 and 33 from 7000 in October 2014. 2. Tried Revlimid in September 2014, discontinued 11/02/2014 due to suspicion that it may cause itching. 3. Velcade 1.3 mg/m sq weekly along with dexamethasone 6 mg p.o. weekly, light chain improved from 833 to 570 as of 04/18/2015, then increased again in May 2015. 4. Velcade induction regimen restarted with dexamethasone 20 mg p.o. weekly on 07/01 patient experienced extreme fatigue due to dehydration from hyperglycemia and diarrhea. 5. Velcade 1.3 mg with dexamethasone 6 mg and cyclophosphamide 300 mg IV [id number]/15/2015, developed grade 2 anemia, fatigue and grade 3 diarrhea. Cyclophosphamide was switched to p.o. 50 mg three weeks on, one week off on 09/26/2015, however, free kappa light chain went down to 1179 on 10/24/2015. 6. Carfilzomib 20 mg/m2 on days 1,2,8,9,15,16 of a 21 day cycle, started on 11/04/2015-02/24/2016. Discontinued due to disease progression. -Dose escalated to 27mg/m2 in cycle 2, on 12/17/2015. Dose reduced to 20mg/m2 on cycle 4 day 15 due to grade 2 fatigue. CURRENT THERAPY 1. Daratumumab 03/17/2016-. -03/17/16-05/05/16, weekly. -05/19/16-08/25/16, biweekly. -09/22/16-, every 4 weeks. 09/21/2017 on hold due to dizziness, to be resumed 12/21/2017. 2. VitB12 injections, monthly. Subjective/ROS - Narrative: CONSTITUTIONAL: Gaining weight, no fever, chills, physical strength is better. CARDIOVASCULAR: No chest pain, chest pressure or chest discomfort. No palpitations or edema. RESPIRATORY: No shortness of breath, cough or hemoptysis. GASTROINTESTINAL: No dysphagia, nausea, vomiting or diarrhea. No abdominal pain,melena, hematochezia. GENITOURINARY: No dysuria, urinary frequency or urgency. NEUROLOGICAL: Positive for double vision, improving. MUSCULOSKELETAL: occasional back pain. Home Medications & Allergies Allergies Allergy/AdvReac Type Severity Reaction Status Date / Time No Known Allergies Allergy Verified 07/27/17 09:02 Home Medications Medication Instructions Recorded Confirmed Type Fish Oil 2 cap PO QDAY 07/14/17 11/23/17 History aspirin [Aspir-81] 1 tab PO QDAY 07/14/17 11/23/17 History atorvastatin 1 tab PO QDAY 07/14/17 11/23/17 History carvedilol 1 tab PO QDAY 07/14/17 11/23/17 History ergocalciferol (vitamin D2) 1 cap PO QDAY 07/14/17 11/23/17 History [Vitamin D2] insulin lispro [Humalog KwikPen] 1 unit SUB-Q DIRECTED 07/14/17 11/23/17 History prednisone 1 tab PO DIRECTED 07/14/17 11/23/17 History sodium bicarbonate 1 tab PO TID 07/14/17 11/23/17 History acyclovir 1 tab PO QDAY #90 tab 11/29/17 Rx Objective - Height/Weight Height/Weight: Height 5 ft 6 in Weight 84.368 kg BSA for Today's Weight 1.98 - Vital Signs Vital Signs: Last Vital Signs Temp 97.7 F 01/18/18 08:05 Pulse 69 01/18/18 08:05 Resp 16 01/18/18 08:05 BP 126/60 01/18/18 08:05 Pulse Ox 97 01/18/18 08:05 - Pain Generalized Back Pain Intensity: 3 - Emotional Needs Assessment Emotional Needs Assessment: Emotional Needs Identified? No Distress Screening Total 0 Support System Family - ECOG Performance Status ECOG Score: 1 Physical Exam Narrative: GENERAL APPEARANCE: In no acute distress. Obese. HEENT: Moist and clear, no oral thrush. LUNGS: Clear to auscultation bilaterally, no rales, rhonchi, or crackles. CARDIOVASCULAR: S1 and S2, regular rate and rhythm, no murmurs, gallops, rubs. ABDOMEN: Soft, nontender, bowel sounds normal. No hepatosplenomegaly. No mass palpated. EXTREMITIES: Trace edema . NEUROLOGIC: Grossly intact. Results - Labs CBC & Chem 7: 01/10/18 10:13 01/10/18 10:13 Labs: Free [place] LC, Quant 14.2 mg/L (3.3-19.4) 01/10/18 10:13 Free Lambda LC, Quant 11.4 mg/L (5.7-26.3) 01/10/18 10:13 Free [place]/Lambda Ratio 1.25 (0.26-1.65) 01/10/18 10:13 Assessment and Plan (1) Multiple myeloma in remission Status: Chronic kappa light chain multiple myeloma, refractory to Velcade dexamethasone and cyclophosphamide, could not tolerate Revlimid, progressed on Carfilzomib. -Ongoing brisk response to single agent Daratumumab. No overt AEs. -Results discussed, renal function and anemia stable. Free light chain level stays low. Resumed Daratumumab, no recurrent dizziness, double vision and hearing loss improved. -Will proceed with Daratumumab today. Continue Acyclovir 400mg bid for Herpes Zoster prophylaxis. -See in 8 weeks with CBC, CMP, and K/L ratio ahead. -She knows to call me if questions or concerns arise. (2) B12 deficiency anemia Status: Chronic - Continue Vit B12 injection monthly. 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 -She does not have active dental issues. We discussed that should she need invasive dental work, would avoid Pamidronate 1 month before and 1 month after. -Plan to stop once she stays in remission for total of 2 years. (4) Steroid-induced hyperglycemia Status: Chronic DM-II, hyperglycemia due to steroids. She is taking insulin 15units qhs. -Recent HbA1c was high. If still high on next reading, may need to see Endocrinology. (5) Hearing loss Status: Chronic -Managed by ENT, improving by self (6) Double vision Status: Chronic Unclear etiology, improving. -She had brain MRI, no concern. (7) HTN (hypertension) Qualifiers: Hypertension type: essential hypertension Qualified Code(s): I10 - Essential (primary) hypertension Status: Chronic She quit taking blood pressure medications due to low BP. Family physician is aware. - Chemo Plan Goal of Treatment: Palliative - Time Spent with Patient Greater than 50% of time spent with patient was for coordination of care (as documented) and [id number] counseling of patient and/or family. 25 - 35 minutes Dictated By: Margarito Buenrostro MD DD/ [id number] Signed By: <Electronically signed by Margarito Buenrostro MD> 01/18/18 1051 [facility] Work Phone: [phone]) [phone] Progress note Author Margarito Buenrostro [facility] November 23, 2017 10:25am Note Date/Time November 23, 2017 1 0:19am [facility] [place] [id number] Hem/Onc Follow Up Note - OP Signed Patient: Hailee Trivedi MR#: [id number] : 1940 Acct:[id number] Age/Sex: 77 / F Type: REG RCR Copies to: Curt Clark MD~ Subjective Date/Time of Service: Date of Service: 11/23/2017 Time of Service: 10:18 Chief Complaint: Follow up appt - Diagnosis DIAGNOSIS: 1. [place] light chain multiple myeloma diagnosed by Dr. Motley by free light chain assay showing 7000 mg kappa, creatinine up to four and bone marrow biopsy in 07/05/2014 reveals 30% of cellularity with 50% involvement, of cyclin D1 positive, normal FISH and cytogenetics. -ISS stage III, beta-2 and microglobulin 3.8 on 07/05/2014, albumin 3.5. -Bone survey showed lucent areas in the calvarium and distal right humerus. -Autologous stem cell transplantation evaluated by Dr. Yossi Bradshaw, not a candidate. 2. Iron deficiency anemia, received IV iron in July 2014. 3. Developed hypertensive emergency after taken off antihypertensive drugs due to low BP (chest pain with BP 244/112) on 11/20/2015, CT angiogram did not show aortic dissection and echocardiogram showed LVEF of 60%, stress test negative. Troponin upon discharge was 0.17. CK-MB was 2.5. 4. Severe VitB12 deficiency diagnosed 12/2015, presentation was dizziness. HPI: Mrs. Trivedi is seen as scheduled. She reports dizzy spells has resolved. She had double vision the past Tuesday and Tuesday, improving. Fatigued as usual, denies fever or chills. Denies headaches. She has good appetite. - Summary of Therapies Summary of Therapies: 1. Velcade/dexamethasone induction regimen with dexamethasone 20 mg started 07/08/2014, kappa light chain decreased to 833 and 33 from 7000 in October 2014. 2. Tried Revlimid in September 2014, discontinued 11/02/2014 due to suspicion that it may cause itching. 3. Velcade 1.3 mg/m sq weekly along with dexamethasone 6 mg p.o. weekly, light chain improved from 833 to 570 as of 04/18/2015, then increased again in May 2015. 4. Velcade induction regimen restarted with dexamethasone 20 mg p.o. weekly on 07/01 patient experienced extreme fatigue due to dehydration from hyperglycemia and diarrhea. 5. Velcade 1.3 mg with dexamethasone 6 mg and cyclophosphamide 300 mg IV [id number]/15/2015, developed grade 2 anemia, fatigue and grade 3 diarrhea. Cyclophosphamide was switched to p.o. 50 mg three weeks on, one week off on 09/26/2015, however, free kappa light chain went down to 1179 on 10/24/2015. 6. Carfilzomib 20 mg/m2 on days 1,2,8,9,15,16 of a 21 day cycle, started on 11/04/2015-02/24/2016. Discontinued due to disease progression. -Dose escalated to 27mg/m2 in cycle 2, on 12/17/2015. Dose reduced to 20mg/m2 on cycle 4 day 15 due to grade 2 fatigue. CURRENT THERAPY 1. Daratumumab 03/17/2016-. -03/17/16-05/05/16, weekly. -05/19/16-08/25/16, biweekly. -09/22/16-, every 4 weeks. 09/21/2017 on hold due to dizziness, to be resumed 12/21/2017. 2. VitB12 injections, monthly. Subjective/ROS - Narrative: CONSTITUTIONAL: Gaining weight, no fever, chills, physical strength is better. CARDIOVASCULAR: No chest pain, chest pressure or chest discomfort. No palpitations or edema. RESPIRATORY: No shortness of breath, cough or hemoptysis. GASTROINTESTINAL: No dysphagia, nausea, vomiting or diarrhea. No abdominal pain,melena, hematochezia. GENITOURINARY: No dysuria, urinary frequency or urgency. NEUROLOGICAL: Positive for double vision, dizzy spells resolve. MUSCULOSKELETAL: occasional back pain. Home Medications & Allergies Allergies Allergy/AdvReac Type Severity Reaction Status Date / Time No Known Allergies Allergy Verified 07/27/17 09:02 Home Medications Medication Instructions Recorded Confirmed Type Fish Oil 2 cap PO QDAY 07/14/17 11/23/17 History acyclovir 1 tab PO QDAY 07/14/17 11/23/17 History amlodipine 1 tab PO QDAY 07/14/17 11/23/17 History aspirin [Aspir-81] 1 tab PO QDAY 07/14/17 11/23/17 History atorvastatin 1 tab PO QDAY 07/14/17 11/23/17 History carvedilol 1 tab PO QDAY 07/14/17 11/23/17 History ergocalciferol (vitamin D2) 1 cap PO QDAY 07/14/17 11/23/17 History [Vitamin D2] insulin lispro [Humalog KwikPen] 1 unit SUB-Q DIRECTED 07/14/17 11/23/17 History prednisone 1 tab PO DIRECTED 07/14/17 11/23/17 History sodium bicarbonate 1 tab PO TID 07/14/17 11/23/17 History Objective - Height/Weight Height/Weight: Height 5 ft 6 in Weight 84.4 kg BSA for Today's Weight 1.96 - Vital Signs Vital Signs: Last Vital Signs Temp 98.2 F 11/23/17 09:49 Pulse 80 11/23/17 09:49 Resp 20 11/23/17 09:49 BP 112/65 11/23/17 09:49 Pulse Ox 98 11/23/17 09:49 - Emotional Needs Assessment Emotional Needs Assessment: Emotional Needs Identified? Yes Distress Screening Total 3 Support System Family - ECOG Performance Status ECOG Score: 1 Physical Exam Narrative: GENERAL APPEARANCE: In no acute distress. Obese. HEENT: Moist and clear, no oral thrush. LUNGS: Clear to auscultation bilaterally, no rales, rhonchi, or crackles. CARDIOVASCULAR: S1 and S2, regular rate and rhythm, no murmurs, gallops, rubs. ABDOMEN: Soft, nontender, bowel sounds normal. No hepatosplenomegaly. No mass palpated. EXTREMITIES: Trace edema . NEUROLOGIC: Grossly intact. Results - Labs CBC & Chem 7: 11/16/17 08:35 11/16/17 08:35 Labs: Free [place] LC, Quant 17.9 mg/L (3.3-19.4) 11/16/17 08:35 Free Lambda LC, Quant 10.5 mg/L (5.7-26.3) 11/16/17 08:35 Free [place]/Lambda Ratio 1.70 (0.26-1.65) H 11/16/17 08:35 Assessment and Plan (1) Multiple myeloma in remission Status: Chronic kappa light chain multiple myeloma, refractory to Velcade dexamethasone and cyclophosphamide, could not tolerate Revlimid, progressed on Carfilzomib. -Ongoing brisk response to single agent Daratumumab. No overt AEs. -Results discussed, renal function and anemia stable. Free light chain level stays low. Given the improvement of her dizzy spells, would like to resume Daratumumab. -She will go to [place] in December, would like to resume therapy on December. -Continue Acyclovir 400mg bid for Herpes Zoster prophylaxis. -See in 8 weeks with CBC, CMP, and K/L ratio ahead. -She knows to call me if questions or concerns arise. (2) B12 deficiency anemia Status: Chronic - Continue Vit B12 injection monthly. 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 -She does not have active dental issues. We discussed that should she need invasive dental work, would avoid Pamidronate 1 month before and 1 month after. -Plan to stop once she stays in remission for total of 2 years. (4) Steroid-induced hyperglycemia Status: Chronic DM-II, hyperglycemia due to steroids. Doing well on insulin. . (5) Hearing loss Status: Chronic -Managed by ENT, improving by self (6) Double vision Status: Chronic Unclear etiology, no symptoms to suggest ischemic stroke. She had it before, comes and goes. I doubt it is related to myeloma treatment. -She will discuss with PCP. I advised her to see Neurology if get worse. - Chemo Plan Goal of Treatment: Palliative - Time Spent with Patient Greater than 50% of time spent with patient was for coordination of care (as documented) and [id number] counseling of patient and/or family. 25 - 35 minutes Dictated By: Margarito Buenrostro MD DD/ [id number] Signed By: <Electronically signed by Margarito Buenrostro MD> 11/23/17 1025 [facility] Work Phone: [phone]) [phone] Progress note Author Margarito Buenrostro [facility] October 19, 2017 9:19am Note Date/Time October 19, 2017 8 :42am [facility] [place] [address] Hem/Onc Follow Up Note - OP Signed Patient: Hailee Trivedi MR#: [id number] : 1940 Acct:[id number] Age/Sex: 77 / F Type: REG RCR Copies to: Curt Clark MD, Jeffrey DO~ Subjective Date/Time of Service: Date of Service: 10/19/2017 Time of Service: 08:42 Chief Complaint: Follow up appt - Diagnosis DIAGNOSIS: 1. [place] light chain multiple myeloma diagnosed by Dr. Motley by free light chain assay showing 7000 mg kappa, creatinine up to four and bone marrow biopsy in 07/05/2014 reveals 30% of cellularity with 50% involvement, of cyclin D1 positive, normal FISH and cytogenetics. -ISS stage III, beta-2 and microglobulin 3.8 on 07/05/2014, albumin 3.5. -Bone survey showed lucent areas in the calvarium and distal right humerus. -Autologous stem cell transplantation evaluated by Dr. Yossi Bradshaw, not a candidate. 2. Iron deficiency anemia, received IV iron in July 2014. 3. Developed hypertensive emergency after taken off antihypertensive drugs due to low BP (chest pain with BP 244/112) on 11/20/2015, CT angiogram did not show aortic dissection and echocardiogram showed LVEF of 60%, stress test negative. Troponin upon discharge was 0.17. CK-MB was 2.5. 4. Severe VitB12 deficiency diagnosed 12/2015, presentation was dizziness. HPI: Mrs. Trivedi is seen before Daratumumab. She reports overall doing well. She still has dizzy spells in the last couple of weeks, plan is to monitor for now. She is fine today. Fatigued as usual, denies fever or chills. Denies headaches. She has good appetite. She noticed worsening numbness/tingling in feet when cross legs. - Summary of Therapies Summary of Therapies: 1. Velcade/dexamethasone induction regimen with dexamethasone 20 mg started 07/08/2014, kappa light chain decreased to 833 and 33 from 7000 in October 2014. 2. Tried Revlimid in September 2014, discontinued 11/02/2014 due to suspicion that it may cause itching. 3. Velcade 1.3 mg/m sq weekly along with dexamethasone 6 mg p.o. weekly, light chain improved from 833 to 570 as of 04/18/2015, then increased again in May 2015. 4. Velcade induction regimen restarted with dexamethasone 20 mg p.o. weekly on 07/01 patient experienced extreme fatigue due to dehydration from hyperglycemia and diarrhea. 5. Velcade 1.3 mg with dexamethasone 6 mg and cyclophosphamide 300 mg IV [id number], developed grade 2 anemia, fatigue and grade 3 diarrhea. Cyclophosphamide was switched to p.o. 50 mg three weeks on, one week off on 09/26/2015, however, free kappa light chain went down to 1179 on 10/24/2015. 6. Carfilzomib 20 mg/m2 on days 1,2,8,9,15,16 of a 21 day cycle, started on 11/04/2015-02/24/2016. Discontinued due to disease progression. -Dose escalated to 27mg/m2 in cycle 2, on 12/17/2015. Dose reduced to 20mg/m2 on cycle 4 day 15 due to grade 2 fatigue. CURRENT THERAPY 1. Daratumumab 03/17/2016-. -03/17/16-05/05/16, weekly. -05/19/16-08/25/16, biweekly. -09/22/16-, every 4 weeks. 09/21/2017 on hold due to dizziness. 2. VitB12 injections, monthly. Subjective/ROS - Narrative: CONSTITUTIONAL: Gaining weight, no fever, chills, physical strength is better. CARDIOVASCULAR: No chest pain, chest pressure or chest discomfort. No palpitations or edema. RESPIRATORY: No shortness of breath, cough or hemoptysis. GASTROINTESTINAL: No dysphagia, nausea, vomiting or diarrhea. No abdominal pain,melena, hematochezia. GENITOURINARY: No dysuria, urinary frequency or urgency. NEUROLOGICAL: No headache, dizziness, syncope, numbness or tingling in the extremities. MUSCULOSKELETAL: occasional back pain. Home Medications & Allergies Allergies Allergy/AdvReac Type Severity Reaction Status Date / Time No Known Allergies Allergy Verified 07/27/17 09:02 Home Medications Medication Instructions Recorded Confirmed Type Fish Oil 2 cap PO QDAY 07/14/17 10/19/17 History acyclovir 1 tab PO QDAY 07/14/17 10/19/17 History amlodipine 1 tab PO QDAY 07/14/17 10/19/17 History aspirin [Aspir-81] 1 tab PO QDAY 07/14/17 10/19/17 History atorvastatin 1 tab PO QDAY 07/14/17 10/19/17 History carvedilol 1 tab PO QDAY 07/14/17 10/19/17 History ergocalciferol (vitamin D2) 1 cap PO QDAY 07/14/17 10/19/17 History [Vitamin D2] insulin lispro [Humalog KwikPen] 1 unit SUB-Q DIRECTED 07/14/17 10/19/17 History prednisone 1 tab PO DIRECTED 07/14/17 10/19/17 History sodium bicarbonate 1 tab PO TID 07/14/17 10/19/17 History Objective - Height/Weight Height/Weight: Height 5 ft 6 in Weight 85.7 kg BSA for Today's Weight 1.96 - Vital Signs Vital Signs: Last Vital Signs Temp 97.6 F 10/19/17 08:09 Pulse 75 10/19/17 08:09 Resp 20 10/19/17 08:09 BP 136/60 10/19/17 08:09 Pulse Ox 98 10/19/17 08:09 - Emotional Needs Assessment Emotional Needs Assessment: Emotional Needs Identified? No Distress Screening Total 0 Support System Family - ECOG Performance Status ECOG Score: 1 Physical Exam Narrative: GENERAL APPEARANCE: In no acute distress. Obese. HEENT: Moist and clear, no oral thrush. LUNGS: Clear to auscultation bilaterally, no rales, rhonchi, or crackles. CARDIOVASCULAR: S1 and S2, regular rate and rhythm, no murmurs, gallops, rubs. ABDOMEN: Soft, nontender, bowel sounds normal. No hepatosplenomegaly. No mass palpated. EXTREMITIES: No edema or calf tenderness. NEUROLOGIC: Grossly intact. Results - Labs CBC & Chem 7: 10/14/17 13:43 12 13:43 Labs: Free [place] LC, Quant 15.6 mg/L (3.3-19.4) 10/14/17 13:43 Free Lambda LC, Quant 9.4 mg/L (5.7-26.3) 10/14/17 13:43 Free [place]/Lambda Ratio 1.66 (0.26-1.65) H 10/14/17 13:43 Assessment and Plan (1) Multiple myeloma in remission Status: Chronic kappa light chain multiple myeloma, refractory to Velcade dexamethasone and cyclophosphamide, could not tolerate Revlimid, progressed on Carfilzomib. -Ongoing brisk response to single agent Daratumumab. No overt AEs. -Results discussed, renal function and anemia stable. Free light chain level stays low. -Would hold Daratumumab for now, consider to resume once her dizziness stabilize. -Continue Acyclovir 400mg bid for Herpes Zoster prophylaxis. -See in 5 weeks with CBC, CMP, and K/L ratio ahead. -She knows to call me if questions or concerns arise. (2) B12 deficiency anemia Status: Chronic - Continue Vit B12 injection monthly. 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 -She does not have active dental issues. We discussed that should she need invasive dental work, would avoid Pamidronate 1 month before and 1 month after. -Plan to stop once she stays in remission for total of 2 years. (4) Steroid-induced hyperglycemia Status: Chronic DM-II, hyperglycemia due to steroids. Doing well on insulin. . (5) Unsteady gait Status: Resolved much improved after physical therapy (6) Hearing loss Status: Acute -Managed by ENT (7) Dizziness Status: Acute She has dizzy spells, neurologically stable, no concern of stroke or acute process today. -Following PCP and ENT. - Chemo Plan Goal of Treatment: Palliative - Time Spent with Patient Greater than 50% of time spent with patient was for coordination of care (as documented) and [id number] counseling of patient and/or family. less than 15 minutes Dictated By: Margarito Buenrostro MD DD/ 1 Signed By: <Electronically signed by Margarito Buenrostro MD> 10/19/17 0919 [facility] Work Phone: 1([phone]) 771-843111-08-2017 Progress note Author Margarito Buenrostro [facility] September 21, 2017 8:54am Note Date/Time September 21, 2017 8 :50am [facility] at [address] [address] Hem/Onc Follow Up Note - OP Signed Patient: Hailee Trivedi MR#: [id number] : 1940 Acct:[id number] Age/Sex: 77 / F Type: REG RCR Copies to: Curt Clakr MD, Jeffrey DO~ Subjective Date/Time of Service: Date of Service: 09/21/2017 Time of Service: 08:48 Chief Complaint: Follow up appt - Diagnosis DIAGNOSIS: 1. [place] light chain multiple myeloma diagnosed by Dr. Motley by free light chain assay showing 7000 mg kappa, creatinine up to four and bone marrow biopsy in 07/05/2014 reveals 30% of cellularity with 50% involvement, of cyclin D1 positive, normal FISH and cytogenetics. -ISS stage III, beta-2 and microglobulin 3.8 on 07/05/2014, albumin 3.5. -Bone survey showed lucent areas in the calvarium and distal right humerus. -Autologous stem cell transplantation evaluated by Dr. Yossi Bradshaw, not a candidate. 2. Iron deficiency anemia, received IV iron in July 2014. 3. Developed hypertensive emergency after taken off antihypertensive drugs due to low BP (chest pain with BP 244/112) on 11/20/2015, CT angiogram did not show aortic dissection and echocardiogram showed LVEF of 60%, stress test negative. Troponin upon discharge was 0.17. CK-MB was 2.5. 4. Severe VitB12 deficiency diagnosed 12/2015, presentation was dizziness. HPI: Mrs. Trivedi is seen on Daratumumab. She reports overall doing well. She has dizzy spells in the last couple of week, associated with hearing impairment, it lasts from seconds to minutes. She is fine today. Her physical stress of gettingbetter, denies fever or chills. Denies headaches. She has good appetite, gainingweight. She noticed worsening numbness/tingling in feet when cross legs. - Summary of Therapies Summary of Therapies: 1. Velcade/dexamethasone induction regimen with dexamethasone 20 mg started 07/08/2014, kappa light chain decreased to 833 and 33 from 7000 in October 2014. 2. Tried Revlimid in September 2014, discontinued 11/02/2014 due to suspicion that it may cause itching. 3. Velcade 1.3 mg/m sq weekly along with dexamethasone 6 mg p.o. weekly, light chain improved from 833 to 570 as of 04/18/2015, then increased again in May 2015. 4. Velcade induction regimen restarted with dexamethasone 20 mg p.o. weekly on 07/01 patient experienced extreme fatigue due to dehydration from hyperglycemia and diarrhea. 5. Velcade 1.3 mg with dexamethasone 6 mg and cyclophosphamide 300 mg IV [id number]/2015, developed grade 2 anemia, fatigue and grade 3 diarrhea. Cyclophosphamide was switched to p.o. 50 mg three weeks on, one week off on 09/26/2015, however, free kappa light chain went down to 1179 on 10/24/2015. 6. Carfilzomib 20 mg/m2 on days 1,2,8,9,15,16 of a 21 day cycle, started on 11/04/2015-02/24/2016. Discontinued due to disease progression. -Dose escalated to 27mg/m2 in cycle 2, on 12/17/2015. Dose reduced to 20mg/m2 on cycle 4 day 15 due to grade 2 fatigue. CURRENT THERAPY 1. Daratumumab 03/17/2016-. -03/17/16-05/05/16, weekly. -05/19/16-08/25/16, biweekly. -09/22/16-, every 4 weeks. 09/21/2017 on hold due to dizziness. 2. VitB12 injections, monthly. Subjective/ROS - Narrative: CONSTITUTIONAL: Gaining weight, no fever, chills, physical strength is better. CARDIOVASCULAR: No chest pain, chest pressure or chest discomfort. No palpitations or edema. RESPIRATORY: No shortness of breath, cough or hemoptysis. GASTROINTESTINAL: No dysphagia, nausea, vomiting or diarrhea. No abdominal pain,melena, hematochezia. GENITOURINARY: No dysuria, urinary frequency or urgency. NEUROLOGICAL: No headache, dizziness, syncope, numbness or tingling in the extremities. MUSCULOSKELETAL: occasional back pain. Home Medications & Allergies Allergies Allergy/AdvReac Type Severity Reaction Status Date / Time No Known Allergies Allergy Verified 07/27/17 09:02 Home Medications Medication Instructions Recorded Confirmed Type Fish Oil 2 cap PO QDAY 07/14/17 09/21/17 History acyclovir 1 tab PO QDAY 07/14/17 09/21/17 History amlodipine 1 tab PO QDAY 07/14/17 09/21/17 History aspirin [Aspir-81] 1 tab PO QDAY 07/14/17 09/21/17 History atorvastatin 1 tab PO QDAY 07/14/17 09/21/17 History carvedilol 1 tab PO QDAY 07/14/17 09/21/17 History ergocalciferol (vitamin D2) 1 cap PO QDAY 07/14/17 09/21/17 History [Vitamin D2] insulin lispro [Humalog KwikPen] 1 unit SUB-Q DIRECTED 07/14/17 09/21/17 History prednisone 1 tab PO DIRECTED 07/14/17 09/21/17 History sodium bicarbonate 1 tab PO TID 07/14/17 09/21/17 History Objective - Height/Weight Height/Weight: Height 5 ft 6 in Weight 83.9 kg BSA for Today's Weight 1.96 - Vital Signs Vital Signs: Last Vital Signs Temp 97.8 F 09/21/17 08:13 Pulse 73 09/21/17 08:13 Resp 20 09/21/17 08:13 BP 119/63 09/21/17 08:13 Pulse Ox 98 09/21/17 08:13 - Emotional Needs Assessment Emotional Needs Assessment: Emotional Needs Identified? Yes Distress Screening Total 2 Support System Family - ECOG Performance Status ECOG Score: 1 Physical Exam Narrative: GENERAL APPEARANCE: In no acute distress. Obese. HEENT: Moist and clear, no oral thrush. LUNGS: Clear to auscultation bilaterally, no rales, rhonchi, or crackles. CARDIOVASCULAR: S1 and S2, regular rate and rhythm, no murmurs, gallops, rubs. ABDOMEN: Soft, nontender, bowel sounds normal. No hepatosplenomegaly. No mass palpated. EXTREMITIES: No edema or calf tenderness. NEUROLOGIC: Grossly intact. Results - Labs CBC & Chem 7: 09/15/17 10:45 09/15/17 10:45 Labs: Free [place] LC, Quant 14.4 mg/L (3.3-19.4) 09/15/17 10:45 Free Lambda LC, Quant 9.3 mg/L (5.7-26.3) 09/15/17 10:45 Free [place]/Lambda Ratio 1.55 (0.26-1.65) 09/15/17 10:45 Assessment and Plan (1) Multiple myeloma in remission Status: Chronic kappa light chain multiple myeloma, refractory to Velcade dexamethasone and cyclophosphamide, could not tolerate Revlimid, progressed on Carfilzomib. -Ongoing brisk response to single agent Daratumumab. No overt AEs. -Results discussed, renal function and anemia stable. Free light chain level stays low. -Would hold Daratumumab for her dizziness. Unlikely to be related to Daratumumab, however, would like to see the etiology is not immune related. -Continue Acyclovir 400mg bid for Herpes Zoster prophylaxis. -See in 5 weeks with CBC, CMP, and K/L ratio ahead. -She knows to call me if questions or concerns arise. (2) B12 deficiency anemia Status: Chronic - Continue Vit B12 injection monthly. 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 -She does not have active dental issues. We discussed that should she need invasive dental work, would avoid Pamidronate 1 month before and 1 month after. (4) Steroid-induced hyperglycemia Status: Chronic DM-II, hyperglycemia due to steroids. Doing well on insulin. . (5) Unsteady gait Status: Resolved much improved after physical therapy (6) Hearing loss Status: Acute ? chemo. More common with Velcade, last given 10/2015. -Managed by ENT (7) Dizziness Status: Acute She has dizzy spells, neurologically stable, no concern of stroke or acute process today. -I asked her to see PCP. -I asked her to have an evaluation with ENT. Her baljit is on 10/27, but the ENT office has an event next week, she will go and talk to them. - Chemo Plan Goal of Treatment: Palliative - Time Spent with Patient Greater than 50% of time spent with patient was for coordination of care (as documented) and [id number] counseling of patient and/or family. 25 - 35 minutes Dictated By: Margarito Buenrostro MD DD/ Signed By: <Electronically signed by Margarito Buenrostro MD> 09/21/17 0854 [facility] Work Phone: 1([phone]) 305-166909-13-2017 Progress note Author Margarito Buenrostro [facility] July 27, 2017 8:53am Note Date/Time July 27, 2017 8:46am [facility] [place] [address] Hem/Onc Follow Up Note - OP Signed Patient: Hailee Trivedi MR#: [id number] : 1940 Acct:[id number] Age/Sex: 77 / F Type: REG RCR cc: Curt Clark MD, Jeffrey DO Qadir, Abdul MD~ Subjective Date/Time of Service: Date of Service: 07/27/2017 Time of Service: 08:44 Chief Complaint: Follow up appt - Diagnosis DIAGNOSIS: 1. [place] light chain multiple myeloma diagnosed by Dr. Motley by free light chain assay showing 7000 mg kappa, creatinine up to four and bone marrow biopsy in 07/05/2014 reveals 30% of cellularity with 50% involvement, of cyclin D1 positive, normal FISH and cytogenetics. -ISS stage III, beta-2 and microglobulin 3.8 on 07/05/2014, albumin 3.5. -Bone survey showed lucent areas in the calvarium and distal right humerus. -Autologous stem cell transplantation evaluated by Dr. Yossi Bradshaw, not a candidate. 2. Iron deficiency anemia, received IV iron in July 2014. 3. Developed hypertensive emergency after taken off antihypertensive drugs due to low BP (chest pain with BP 244/112) on 11/20/2015, CT angiogram did not show aortic dissection and echocardiogram showed LVEF of 60%, stress test negative. Troponin upon discharge was 0.17. CK-MB was 2.5. 4. Severe VitB12 deficiency diagnosed 12/2015, presentation was dizziness. HPI: Mrs. Trivedi is seen on Daratumumab. She reports doing well. Her physical stress of getting better, denies fever or chills. Denies headaches. She has goodappetite, gaining weight. She reports sudden hearing loss in left ear, evaluatedby ENT. She denies numbness/tingling in feet or hands. - Summary of Therapies Summary of Therapies: 1. Velcade/dexamethasone induction regimen with dexamethasone 20 mg started 07/08/2014, kappa light chain decreased to 833 and 33 from 7000 in October 2014. 2. Tried Revlimid in September 2014, discontinued 11/02/2014 due to suspicion that it may cause itching. 3. Velcade 1.3 mg/m sq weekly along with dexamethasone 6 mg p.o. weekly, light chain improved from 833 to 570 as of 04/18/2015, then increased again in May 2015. 4. Velcade induction regimen restarted with dexamethasone 20 mg p.o. weekly on 07/01 patient experienced extreme fatigue due to dehydration from hyperglycemia and diarrhea. 5. Velcade 1.3 mg with dexamethasone 6 mg and cyclophosphamide 300 mg IV [id number]/2015, developed grade 2 anemia, fatigue and grade 3 diarrhea. Cyclophosphamide was switched to p.o. 50 mg three weeks on, one week off on 09/26/2015, however, free kappa light chain went down to 1179 on 10/24/2015. 6. Carfilzomib 20 mg/m2 on days 1,2,8,9,15,16 of a 21 day cycle, started on 11/04/2015-02/24/2016. Discontinued due to disease progression. -Dose escalated to 27mg/m2 in cycle 2, on 12/17/2015. Dose reduced to 20mg/m2 on cycle 4 day 15 due to grade 2 fatigue. CURRENT THERAPY 1. Daratumumab 03/17/2016-. -03/17/16-05/05/16, weekly. -05/19/16-08/25/16, biweekly. -09/22/16-, every 4 weeks. 2. VitB12 injections, monthly. Subjective/ROS - Narrative: CONSTITUTIONAL: Gaining weight, no fever, chills, physical strength is better. CARDIOVASCULAR: No chest pain, chest pressure or chest discomfort. No palpitations or edema. RESPIRATORY: No shortness of breath, cough or hemoptysis. GASTROINTESTINAL: No dysphagia, nausea, vomiting or diarrhea. No abdominal pain,melena, hematochezia. GENITOURINARY: No dysuria, urinary frequency or urgency. NEUROLOGICAL: No headache, dizziness, syncope, numbness or tingling in the extremities. MUSCULOSKELETAL: occasional back pain. Home Medications & Allergies Allergies Allergy/AdvReac Type Severity Reaction Status Date / Time No Known Allergies Allergy Verified 07/27/17 08:12 Home Medications Medication Instructions Recorded Confirmed Type Fish Oil 2 cap PO QDAY 07/14/17 07/27/17 History acyclovir 1 tab PO QDAY 07/14/17 07/27/17 History amlodipine 1 tab PO QDAY 07/14/17 07/27/17 History aspirin [Aspir-81] 1 tab PO QDAY 07/14/17 07/27/17 History atorvastatin 1 tab PO QDAY 07/14/17 07/27/17 History carvedilol 1 tab PO QDAY 07/14/17 07/27/17 History ergocalciferol (vitamin D2) 1 cap PO QDAY 07/14/17 07/27/17 History [Vitamin D2] insulin lispro [Humalog KwikPen] 1 unit SUB-Q DIRECTED 07/14/17 07/27/17 History prednisone 1 tab PO DIRECTED 07/14/17 07/27/17 History sodium bicarbonate 1 tab PO TID 07/14/17 07/27/17 History Objective - Height/Weight Height/Weight: Height 5 ft 6 in Weight 85.5 kg - Vital Signs Vital Signs: Last Vital Signs Temp 97.5 F L 07/27/17 08:13 Pulse 68 07/27/17 08:13 Resp 20 07/27/17 08:13 BP 134/66 07/27/17 08:13 Pulse Ox 99 07/27/17 08:13 - Emotional Needs Assessment Emotional Needs Assessment: Emotional Needs Identified? No Distress Screening Total 0 - ECOG Performance Status ECOG Score: 1 Physical Exam Narrative: GENERAL APPEARANCE: In no acute distress. Obese. HEENT: Moist and clear, no oral thrush. LUNGS: Clear to auscultation bilaterally, no rales, rhonchi, or crackles. CARDIOVASCULAR: S1 and S2, regular rate and rhythm, no murmurs, gallops, rubs. ABDOMEN: Soft, nontender, bowel sounds normal. No hepatosplenomegaly. No mass palpated. EXTREMITIES: No edema or calf tenderness. NEUROLOGIC: Grossly intact. Results - Labs CBC & Chem 7: 07/21/17 08:50 07/21/17 08:50 Labs: [place] and lambda light chain levels low, and stable Assessment and Plan (1) Multiple myeloma in remission Status: Chronic kappa light chain multiple myeloma, refractory to Velcade dexamethasone and cyclophosphamide, could not tolerate Revlimid, progressed on Carfilzomib. -Ongoing brisk response to single agent Daratumumab. No overt AEs. -Results discussed, renal function and anemia stable. Free light chain level stays low. -Continue Daratumumab monthly. -Continue Acyclovir 400mg bid for Herpes Zoster prophylaxis. -See in 8 weeks with CBC, CMP, and K/L ratio ahead. -She knows to call me if questions or concerns arise. (2) B12 deficiency anemia Status: Chronic - Continue Vit B12 injection monthly. 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 -She does not have active dental issues. We discussed that should she need invasive dental work, would avoid Pamidronate 1 month before and 1 month after. (4) Steroid-induced hyperglycemia Status: Chronic DM-II, hyperglycemia due to steroids. Doing well on insulin. . (5) Unsteady gait Status: Chronic much improved after physical therapy (6) Hearing loss Status: Acute ? chemo. More common with Velcade, last given 10/2015. -Managed by ENT - Chemo Plan Goal of Treatment: Palliative - Time Spent with Patient Greater than 50% of time spent with patient was for coordination of care (as documented) and [id number] counseling of patient and/or family. 25 - 35 minutes Dictated By: Margarito Buenrostro MD DD/ Signed By: <Electronically signed by Margarito Buenrostro MD> 07/27/1753 [facility] Work Phone: Evaluation + Plan note Future Appointments Appointment Date:01/10/2023 10:45:00 AM Scheduled Provider:Tyree PARK MD Location:[facility] Appointment Type:URO Office Visit [facility] evaluation + Plan note Future Appointments Appointment Date:01/09/2024 08:45:00 AM Scheduled Provider:Tyree PARK MD Location:[facility] Appointment Type:URO Office Visit Diagnostic Tests Pending * Urine Cytology ([facility]) 01/10/23 [facility] evaluation noteNo Rolith Other Evaluation note* Diagnosis Onset Date Resolution Status Cerebellar stroke, acute acu te CKD (chronic kidney disease) stage 4, GFR 15-29 ml/min acute Diabetes mellitus type II, controlled acute Dizziness acute Hyperlipidemia acute Multiple myeloma acute Transient left leg weakness acute Anemia chronic Atrial fibrillation chronic B12 deficiency anemia chroni c Hearing loss chronic HTN (hypertension) chronic 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 Multiple myeloma in remission chronic Steroid-induced hyperglycemia chronic Unsteady gait resolved [facility] Work Phone: Evaluation note* Diagnosis Persistent atrial fibrillation with RVR (CMS/HCC)- Primary Aortic valve regurgitation, nonrheumatic Ascending aorta dilation (CMS/HCC) Thoracic aneurysm without mention of rupture Essential hypertension Unspecified essential hypertension Pulmonary hypertension (CMS/HCC) Other chronic pulmonary heart diseases Stage 3a chronic kidney disease (CMS/HCC) documented in this encounter [facility] Work Phone: Evaluation note* Diagnosis Aortic valve regurgitation, nonrheumatic Ascending aorta dilation (CMS/HCC) Thoracic aneurysm without mention of rupture Pulmonary hypertension (CMS/HCC) Other chronic pulmonary heart diseases documented in this encounter [facility] Work Phone: Evaluation note* Diagnosis Aortic valve regurgitation, nonrheumatic Ascending aorta dilation (CMS/HCC) Thoracic aneurysm without mention of rupture Pulmonary hypertension (CMS/HCC) Other chronic pulmonary heart diseases documented in this encounter [facility] Work Phone: History general Narrative - Reported* Type Description Date Medical History HYPERTENSION Medical History KIDNEY STONES Medical History MULTIPLE MYELOMA Medical History DM II Medical History STAGE 4 CHRONIC KIDNEY DISEASE Medical History HYPERLIPIDEMIA Medical History CVA OF CEREBELLUM Medical History KIDNEY STONES Surgical History cholecystectomy Surgical History total hysterectomy 1989 Surgical History hemorrhoidectomy Surgical History CHEMO 06/2016 Surgical History lithotripsey 03/09/18 Surgical History Lithotripsey 02-09-2018 Surgical History left kidney stent 12-27-19 Surgical History LITHOTRIPSEY 01/24/2020 Surgical History STENT REMOVAL 03/03/2021 Surgical History KIDNEY STONES X 3 WITH LASER 02/19/2021 Hospitalization History SEE ABOVE SURGERY Hospitalization History [facility]-DEHYDRATION/RASH [facility] Other Hisjzyf general Narrative - Reported* Type Description Date Medical History HYPERTENSION Medical History KIDNEY STONES Medical History MULTIPLE MYELOMA Medical History DM II Medical History STAGE 4 CHRONIC KIDNEY DISEASE Medical History HYPERLIPIDEMIA Medical History CVA OF CEREBELLUM Medical History KIDNEY STONES Surgical History cholecystectomy Surgical History total hysterectomy 1989 Surgical History hemorrhoidectomy Surgical History CHEMO 06/2016 Surgical History lithotripsey 03/09/18 Surgical History Lithotripsey 02-09-2018 Surgical History left kidney stent 12-27-19 Surgical History LITHOTRIPSEY 01/24/2020 Surgical History STENT REMOVAL 03/03/2021 Surgical History KIDNEY STONES X 3 WITH LASER 02/19/2021 Hospitalization History SEE ABOVE SURGERY Hospitalization History [facility] Hospitalization History COVID 10/2021 [facility] Other history general Narrative - Reported* Type Description Date Medical History HYPERTENSION Medical History KIDNEY STONES Medical History MULTIPLE MYELOMA Medical History DM II Medical History STAGE 4 CHRONIC KIDNEY DISEASE Medical History HYPERLIPIDEMIA Medical History CVA OF CEREBELLUM Medical History KIDNEY STONES Medical History COVID 05-21-2022 Surgical History cholecystectomy Surgical History total hysterectomy 1989 Surgical History hemorrhoidectomy Surgical History CHEMO 06/2016 Surgical History lithotripsey 03/09/18 Surgical History Lithotripsey 02-09-2018 Surgical History left kidney stent 12-27-19 Surgical History LITHOTRIPSEY 01/24/2020 Surgical History STENT REMOVAL 03/03/2021 Surgical History KIDNEY STONES X 3 WITH LASER 02/19/2021 Hospitalization History SEE ABOVE SURGERY Hospitalization History [facility] Hospitalization History COVID 10/2021 [facility] Other History of Present illness Narrative* Patient is here for follow-up continue management for previous evaluation of her persistent atrial fibrillation, previous evaluation for chest pain, hypertension and hyperlipidemia. Since last time Isaw her she called on 1 occasion with complaint of chest pain I did advise her to undergo stress test but she elected not to pursue that. Since that call she reports she has been doing well. She denies complaint of chest pain, palpitation, lightheadedness, dizziness or syncope. She admits to limited exercise tolerance due to her orthopedic issues. * ASSESSMENT: * 1. Persistent atrial fibrillation. Currently in normal sinus rhythm. Currently on Xarelto with appropriate dose based on renal function * 2. Remote evaluation for chest pain, resolved. No recurrence. She did have noninvasive assessment at [facility], which was negative. Couple of years ago. No further recurrence she had 1 episode recently and I did advise her to have a repeat stress test but she elected to defer that * 3. Hypertension, controlled. * 4. Hyperlipidemia, on atorvastatin and fish oil. Controlled recent lab noted and reviewed * 5. Chronic kidney disease. stage of 3 achieving stage IV * 6. Multiple myeloma. Patient report in remission * 7. Prior presentation with cerebellar infarct. Currently on aspirin and Xarelto and followed by neurology * 8. Moderate aortic regurgitation based on echocardiogram * 9. Moderate obesity * 10.There had been some notation in the chart that she had dilated aortic root. She could not be confirmed on a CT scan previously. She does have an echocardiogram that failed to demonstrate significant aortic root dilatation. * Plan * 1. Patient appears to be an appropriate therapy . Renal function seems to preclude the use of MARK inhibitor's or ARB * 2. Patient was advised to remain on current therapy * 3. The patient was counseled regarding losing weight, exercise and dietary modification * 4. Risk, benefit and alternative anticoagulation reviewed with patient unkempt she understood and agreed. * 5. We will see her back in the office in 9 months and plan to repeat her lab work prior to next office visit * 6. Patient advised to notify of change in cardiac status or symptoms -[facility] 250 DO Work Phone: History of Present illness Narrative* Patient here for follow-up continue atrial fibrillation, hypertension, hyperlipidemia and chronic disease. * I saw her she denies any complaint of chest pain, palpitation lightheadedness or syncope. She remains active. Her only complaint is symptoms of fatigue and tiredness with her recent lab work noted. Her blood pressures been running on the low range * ASSESSMENT: * 1. Persistent atrial fibrillation. Currently in normal sinus rhythm. Currently on Xarelto with appropriate dose based on renal function * 2. Remote evaluation for chest pain, resolved. No recurrence. She did have noninvasive assessment at [facility], which was negative. Couple of years ago. No further recurrence she had 1 episode recently and I did advise her to have a repeat stress test but she elected to defer that * 3. Hypertension, controlled. Blood pressure in normal range * 4. Hyperlipidemia, on atorvastatin and fish oil. Controlled recent lab noted and reviewed * 5. Chronic kidney disease. stage of 3 achieving stage IV * 6. Multiple myeloma. Patient report in remission * 7. Prior presentation with cerebellar infarct. Currently on aspirin and Xarelto and followed by neurology * 8. Moderate aortic regurgitation based on echocardiogram * 9. Moderate obesity * 10.There had been some notation in the chart that she had dilated aortic root. She could not be confirmed on a CT scan previously. She does have an echocardiogram that failed to demonstrate significant aortic root dilatation. * Plan * 1. Patient appears to be an appropriate therapy . Renal function seems to preclude the use of MARK inhibitor's or ARB * 2. Considering her blood pressure running in the lower range and I discussed with the equal discontinued * 3. The patient was counseled regarding losing weight, exercise and dietary modification * 4. Risk, benefit and alternative anticoagulation reviewed with patient unkempt she understood and agreed. * 5. We will see her back in the office in 9 months and plan to repeat her lab work prior to next office visit * 6. Patient advised to notify of change in cardiac status or symptoms [facility] DO Work Phone: Hospital course Narrative No data available for this section [facility] progress note No data available for this section [facility] progress note Author Misti Connolly [facility] January 11, 2023 11:19am Note Date/Time January 11, 2023 10:42am [facility] at [address] [address] Hem/Onc Follow Up Note - OP Signed Patient: Hailee Trivedi MR#: [id number] : 1940 Acct:[id number] Age/Sex: 82 / F Type: REG RCR Copies to: MD Junaid Napierothy Dayan Choi, II, DO~ Date of Service: 01/11/2023 Time of Service: 10:42 - Assessment & Plan (1) Multiple myeloma Plan: 81 year old female with a long history of multiple myeloma currently on Daratumumab. Previously evaluated for consideration of autologous transplant and was not a candidate. Her myeloma is refractory to VCD, she could not tolerate Revlimid, and she progressed on Carfilzomib. She is tolerating therapy with daratumumab well. Within one month of starting irma in 2015 she had 95% reduction in K light chains and have been normal since. March 2022 her M spike remains undetectable. Continues on Daratumumab Will continue with treatment every 6 weeks. -- SPEP, SFLC at each cycle --24hr UPEP and FLC every 3 cycles --Continue Acyclovir 400 mg BID prophylaxis Jun 2022 visit we decided to monitor off of therapy. Counts have remained fairlystable overall since this time Dec 2022 she continues to do very well off treatment and agrees with continued monitoring of labs every 3 months Lytic lesions completed Pamidronate 60 mg monthly for 2 years. She was switched to every 3 month but stopped after 04/2018 since she stayed in remission for total of 2 years. Last dose was 04/19/2018. 01/29/22 bone survey notes stable with one lytic lesion in R humeral head 01/06/23 bone survey without any lytic lesions noted. Vitamin B12 deficiency Antibodies for parietal cells and intrinsic factor were normal. Switched to oral Vit B12 in 04/2019. Repeat B12 level in 07/2019 was 900 and 506 in 11/02. -- Continue oral vitamin B12 at 1000mcg daily. L leg weakness New since end of March 2022- this is being managed by her neurologist. Head CT done March 2022 at [facility] without new/acute findings. Follow Up Instructions: cbc, cmp, spep, hailee, flc, immunoglobulins in 3 months and 6 months follow-up in 6 months - History of Present Illness Chief Complaint: Patient is here today for a follow up 5 month follow up visit for multiple myeloma and go over labs 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 -ISS stage III, beta-2 and microglobulin 3.8 on 07/05/2014, albumin 3.5. -Bone survey showed lucent areas in the calvarium and distal right humerus. -Autologous stem cell transplantation evaluated by Dr. Yossi Bradshaw, not a candidate. 10/06/21 Dr. Bello note- She is here for routine follow-up. Her most recent SPEP showed M spike at 0.1. She is on monthly daratumumab for myeloma. She will be getting her treatment today and we have been trying to transfer her care to [facility] but they are not up to doing transfusions yet. 12/16/21 Dr. Bello note- She is here for routine follow-up. She has been absent because of a prolonged Covid infection. She is presenting December 16 to resume her daratumumab. She was previously on monthly maintenance daratumumab for multiple myeloma. Shewas given the Darzalex shot but did not tolerate this and is now on monthly intravenous daratumumab. 01/18/22 Seen via video visit with Dr. Choi. Her myeloma is refractory to VCD, she could not tolerate Revlimid, and she progressed on Carfilzomib. She is tolerating therapy with daratumumab well. Within one month of starting irma in 2015 she had 95% reduction in K light chains and have been normal since. She is questioning whether she needs to stay on treatment. Serologically she has been nearly undetectable for 5 years. We decided in January 2021 to space her treatments out to every 6 weeks. will consider further spacing if she is doing well in 6 months. 04/13/22 She is doing ok overall, still with quite a bit of fatigue on treatment she denies n/v/d/c, no abdominal pain, chest pain or dyspnea she notes left leg weakness x 1 week, sees neurology (followed at [facility]) who have ruled out stroke, CT brain without acute findings. She is using a cane and walker as her leg will just go out on her occasionally. No other symptoms with this otherwise she denies any new complaints. no fever, chills, sweats or recent infections 07/13/22 labs remain stable, 0.2 M spike. creat 2.38 01/11/23 she feels very well overall denies any complaints no new pain. energy is ok, eating and drinking ok labs overall ok. hgb still WNL. k/l ratio mildly increasing, M-spike pending at visit - Physical Exam CONSTITUTIONAL: Awake, Alert and in No Acute Distress HEENT: Eyes were reactive to light bilaterally, anicteric sclere without conjunctival pallor. Nasal mucosa was non-erythematous. Mucous membranes were moist. NECK: There were no masses in the neck. Trachea was midline. Thyroid was not enlarged. LYMPHATIC: No auricular, anterior/posterior cervical, supraclavicular, infraclavicular, axillary, or inguinal adenopathy appreciated RESPIRATORY: CTA bilaterally, no wheezes, rhonchi or rales CARDIAC: RRR. No murmurs, gallops or rubs. No edema MUSCULOSKELETAL: Gait was normal. No clubbing or cyanosis noted. SKIN: No rashes, lesions, nodules, ecchymoses, erythema or petechiae were noted. PSYCHIATRIC: Oriented to time, place and person. Memory was intact. Goal of Treatment: Palliative - Time with Patient Coordination of Care & Counseling Time: Greater than 50% of time spent with patient was for coordination of care (as documented) and [id number] counseling of patient and/or family. [facility] - Medical History Medical History: Medical History (Last Updated 12/16/21 @ 12:55 by Courtney Jackman) Afib CKD (chronic kidney disease) COVID-19 CVA (cerebral vascular accident) Diabetes HTN (hypertension) Hyperlipidemia Kidney stone Multiple myeloma - Surgical History Surgical History: Surgical History (Last Reviewed 12/16/21 @ 12:55 by Courtney Jackman) History of cholecystectomy History of hemorrhoidectomy History of hysterectomy History of renal stent Hx of lithotripsy - Social History Smoking Status: Never smoker Substance Use Type: None Additional Data - Additional Objective Data Height/Weight: Height 5 ft 6 in Weight 88.2 kg BSA for Today's Weight 1.98 Vital Signs: 01/11/23 10:37 Temperature 97.8 F Pulse Rate [Left Brachial] 66 Respiratory Rate 16 Blood Pressure [Right Arm] 139/63 02 Sat by Pulse Oximetry 97 Oxygen Delivery Method Room Air Distress Screening: RN Distress Screening Start: 07/22/17 16:17 Freq: Q30D Status: Active Protocol: Document 01/19/22 09:00 KB (Rec: 01/19/22 09:01 KB [id number]) Distress Screening Distress screening follow up: Will follow with patient for any needs at next visit. Anxious about making next appointment time. - Lab Results Diagram of Most Recent CBC and CMP 01/04/23 14:45 01/04/23 14:45 Labs - Last 7 Days 01/04/23 14:45: Free [place] LC, Quant 26.9 H, Free Lambda LC, Quant 12.0, Free [place]/Lambda Ratio 2.24 H 01/04/23 14:45: PHA Creatinine Clear 19.82, Sodium 137, Potassium 4.3, Chloride 108, Carbon Dioxide 21.9 L, Anion Gap 11.4, BUN 33 H, Creatinine 2.48 H, Est GFR( Amer) 23, Est GFR (Non-Af Amer) 19, Glucose 144 H, Calcium 8.7, Total Bilirubin 0.6, AST 14, ALT 14, Alkaline Phosphatase 99 H, Total Protein 6.1, Albumin 3.6, Globulin 2.5, Albumin/Globulin Ratio 1.4 01/04/23 14:45: Corrected WBC 8.9, Uncorrected WBC Count 8.9, RBC 4.04, Hgb 12.7, Hct 38.4, MCV 95.1, MCH 31.4, MCHC 33.0, RDW 13.2, Plt Count 210, MPV 9.6,Neut % (Auto) 54.8, Lymph % (Auto) 34.1, Archuleta % (Auto) 8.0, Eos % (Auto) 2.3, Baso % (Auto) 0.8, Nucleat RBC Rel Count 0.0, Neut # (Auto) 4.9, Lymph # (Auto) 3.0, Archuleta # (Auto) 0.7, Eos # (Auto) 0.2, Baso # (Auto) 0.1 - Home Medications and Allergies Allergies/Adverse Reactions: Allergies lenalidomide [From Revlimid] Allergy (Mild, Verified 01/11/23 10:37) Rash oxybutynin Allergy (Verified 01/11/23 10:37) Rash pregabalin [From Lyrica] Allergy (Verified 01/11/23 10:37) double vision Home Medications: Home Medications Fish Oil 1,200 cap PO BID 07/14/17 [History Confirmed 01/11/23] insulin lispro 100 unit/mL subcutaneous pen (Humalog KwikPen (U-100) Insulin) See Protocol subcut ACHS PRN DIABETES 07/14/17 [History Confirmed 01/11/23] sodium bicarbonate 650 mg tablet 650 mg PO BID 07/14/17 [History Confirmed 01/11/23] cholecalciferol (vitamin D3) 125 mcg (5,000 unit) tablet (Vitamin D3) 1,000 unitPO DAILY 08/10/18 [History Confirmed 01/11/23] insulin NPH isoph U-100 human 100 unit/mL (3 mL) subcutaneous pen (Humulin N NPHU-100 Insulin KwikPen) 12 unit subcut QPM 08/10/18 [History Confirmed 01/11/23] atorvastatin 40 mg tablet 40 mg PO DAILY 08/23/18 [History Confirmed 01/11/23] amlodipine 10 mg tablet 5 mg PO DAILY 09/20/18 [History Confirmed 01/11/23] aspirin 81 mg chewable tablet 81 mg PO DAILY 10/18/18 [History Confirmed 01/11/23] cyanocobalamin (vitamin B-12) 1,000 mcg tablet 1,000 mcg PO DAILY 05/02/19 [History Confirmed 01/11/23] acyclovir 400 mg tablet 400 mg PO BID 11/07/19 [History Confirmed 01/11/23] carvedilol 12.5 mg tablet (Coreg) 12.5 mg PO BID 30 days #60 tabs 11/07/19 [Rx Confirmed 01/11/23] rivaroxaban 15 mg tablet (Xarelto) 15 mg PO DAILY 30 days #30 tabs 11/07/19 [Rx Confirmed 01/11/23] cyclobenzaprine 10 mg tablet 10 mg PO TID PRN Pain #15 tabs 11/04/20 [Rx Confirmed 01/11/23] sodium citrate-citric acid 490 mg-640 mg/5 mL oral solution (Oracit) 10 ml PO QID 06/16/21 [History Confirmed 01/11/23] Dictated By: Misti Connolly APRN DD/ 1042 Signed By: <Electronically signed by RAMAKRISHNA Connolly> 01/11/23 1119 [facility] Work Phone: Summary Purpose Family History Unknown Family Member Name Dates Details Family history of cerebrovas cular accident (CVA): Mother, Sister(V17.1, Z82.3) Status:Active Family history of hypertensi on: Mother, Sister(V17.49, Z82.49) Status:Active Family history of diabetes m ellitus: Mother, Sister(V18.0, Z83.3) Status:Active Family history of cardiac di sorder: Mother, Sister(V17.49, Z82.49) Status:Active Unknown Family Member Name Dates Details Family history of cerebrovas cular accident (CVA): Mother, Sister(V17.1, Z82.3) Status:Active Family history of hypertensi on: Mother, Sister(V17.49, Z82.49) Status:Active Family history of diabetes m ellitus: Mother, Sister(V18.0, Z83.3) Status:Active Family history of cardiac di sorder: Mother, Sister(V17.49, Z82.49) Status:Active Unknown Family Member Name Dates Details Family history of cerebrovas cular accident (CVA): Mother, Sister(V17.1, Z82.3) Status:Active Family history of hypertensi on: Mother, Sister(V17.49, Z82.49) Status:Active Family history of diabetes m ellitus: Mother, Sister(V18.0, Z83.3) Status:Active Family history of cardiac di sorder: Mother, Sister(V17.49, Z82.49) Status:Active Unknown Family Member Name Dates Details Family history of cerebrovas cular accident (CVA): Mother, Sister(V17.1, Z82.3) Status:Active Family history of hypertensi on: Mother, Sister(V17.49, Z82.49) Status:Active Family history of diabetes m ellitus: Mother, Sister(V18.0, Z83.3) Status:Active Family history of cardiac di sorder: Mother, Sister(V17.49, Z82.49) Status:Active Unknown Family Member Name Dates Details Family history of cerebrovas cular accident (CVA): Mother, Sister(V17.1, Z82.3) Status:Active Family history of hypertensi on: Mother, Sister(V17.49, Z82.49) Status:Active Family history of diabetes m ellitus: Mother, Sister(V18.0, Z83.3) Status:Active Family history of cardiac di sorder: Mother, Sister(V17.49, Z82.49) Status:Active Unknown Family Member Name Dates Details Family history of cerebrovas cular accident (CVA): Mother, Sister(V17.1, Z82.3) Status:Active Family history of hypertensi on: Mother, Sister(V17.49, Z82.49) Status:Active Family history of diabetes m ellitus: Mother, Sister(V18.0, Z83.3) Status:Active Family history of cardiac di sorder: Mother, Sister(V17.49, Z82.49) Status:Active Unknown Family Member Name Dates Details Family history of cerebrovas cular accident (CVA): Mother, Sister(V17.1, Z82.3) Status:Active Family history of hypertensi on: Mother, Sister(V17.49, Z82.49) Status:Active Family history of diabetes m ellitus: Mother, Sister(V18.0, Z83.3) Status:Active Family history of cardiac di sorder: Mother, Sister(V17.49, Z82.49) Status:Active Unknown Family Member Name Dates Details Family history of cardiac di sorder: Mother, Sister(V17.49, Z82.49) Status:Active Family history of diabetes m ellitus: Mother, Sister(V18.0, Z83.3) Status:Active Family history of hypertensi on: Mother, Sister(V17.49, Z82.49) Status:Active Family history of cerebrovas cular accident (CVA): Mother, Sister(V17.1, Z82.3) Status:Active Advance Directives Advance Directive Response Recorded Date/ Time Advance Directives No October 6:23pm Advance Directive Response Recorded Date/ Time Advance Directives No October 5:23pm Chief Complaint HAILEE TRIVEDI is being seen for a 6 month follow-up of.HAILEE TRIVEDI is being seen for a 9 month follow-up of.HAILEE TRIVEDI is being seen for a 6 month follow-up of. Chief Complaint and Reason for Visit Chief Complaint Multiple Myeloma. 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 Multiple myeloma in remission Steroid-induced hyperglycemia Unsteady gait Reason for Referral Specialty Diagnoses / Procedures Referred By Contac t Referred To Contact Cardiology Diagnoses Aortic valve regurgitation, nonrheumatic Ascending aorta dilation (CMS/HCC) Pulmonary hypertension (CMS/HCC) Procedures Transthoracic Echo (TTE) Complete [place] ECHO TRANSTHORC R-T 2D W/WO M-MODE REC F-UP/LMTD NJ DOP ECHOCARD COLOR FLOW VELOCITY MAPPING [place] DOP ECHOCARD PULSE WAVE W/SPECTRAL F-UP/LMTD STD Elicia Rhodes MD [address] [place] [address] 2, [address] [address] Referral ID Status Reason Start Date Expiration Date Visits Requested Visits Authorized [id number] Pending Review Perform Procedure 10/03/2024 1 1 Specialty Diagnoses / Procedures Referred By Jordanac t Referred To Contact Diagnoses Persistent atrial fibrillation with RVR (CMS/HCC) Procedures ECG 12 Lead Elicia Rhodes MD [address] [facility] 2, [address] [address] Referral ID Status Reason Start Date Expiration Date V isits Requested Visits Authorized [id number] Pending Review 10/04/2023 10/03/2024 1 1 Specialty Diagnoses / Procedures Referred By Contac t Referred To Contact Cardiology Diagnoses Persistent atrial fibrillation with RVR (CMS/HCC) Aortic valve regurgitation, nonrheumatic Ascending aorta dilation (CMS/HCC) Procedures Follow Up In Cardiology Elicia Rhodes MD [address] [facility] 2, [address] [place] [id number] Elicia Rhodes MD [facility] [facility] 2, [address] [place] [address] Referral ID Status Reason Start Date Expiration Date V isits Requested Visits Authorized [id number] Authorized 10/04/2023 10/03/2024 1 1 Additional Source Comments INFORMATION SOURCE (unrecogn ized section and content) DATE CREATED AUTHOR 10/19/2019 [facility] DATE CREATED AUTHOR AUTHOR'S ORGANIZ ATION 02/28/2023 [facility] DATE CREATED AUTHOR AUTHOR'S ORGANIZ ATION 03/24/2023 [facility] DATE CREATED AUTHOR AUTHOR'S ORGANIZ ATION 03/26/2023 [facility] DATE CREATED AUTHOR AUTHOR'S ORGANIZ ATION 03/26/2023 [facility] DATE CREATED AUTHOR AUTHOR'S ORGANIZ ATION 10/07/2023 [facility] DATE CREATED AUTHOR AUTHOR'S ORGANIZ ATION 11/09/2023 [facility] DATE CREATED AUTHOR AUTHOR'S ORGANIZ ATION 12/16/2023 [facility] REASON FOR VISIT (unrecogniz ed section and content) cost of med Reason Comments Follow-up 6m with ekg Specialty Diagnoses / Procedures Referred By Jordanac t Referred To Contact Diagnoses Persistent atrial fibrillation with RVR (CMS/HCC) Procedures ECG 12 Lead Elicia Rhodes MD [address] [facility] 2, [address] [place] [address] Referral ID Status Reason Start Date Expiration Date V isits Requested Visits Authorized [id number] Pending Review 10/04/2023 10/03/2024 1 1 Specialty Diagnoses / Procedures Referred By Contac t Referred To Contact Cardiology Diagnoses Aortic valve regurgitation, nonrheumatic Ascending aorta dilation (CMS/HCC) Pulmonary hypertension (CMS/HCC) Procedures Transthoracic Echo (TTE) Complete [place] ECHO TRANSTHORC R-T 2D W/WO M-MODE REC F-UP/LMTD NJ DOP ECHOCARD COLOR FLOW VELOCITY MAPPING NJ DOP ECHOCARD PULSE WAVE W/SPECTRAL F-UP/LMTD STD Elicia Rhodes MD [address] [facility] 2, [address] [place] [address] Referral ID Status Reason Start Date Expiration Date Visits Requested Visits Authorized [id number] Pending Review Perform Procedure 3 10/03/2024 1 1 Care Teams (unrecognized sec tion and content) Team Status: Active Member Role Status Dates Curt Clark MD Primary Care Provider Active Team Status: Inactive Member Role Status Dates Curt Clark MD Primary Care Provider Active Nehemias Fernandez II, MD Attending Provider Active Team Status: Active Member Role Status Dates Curt Clark MD Primary Care Provider Active Claire Choi II, DO Attending Provider Active Projection Camera Operator Relationship Specialty Start Date End Date Curt Clark MD PCP - General 12/10/14 Projection Camera Operator Relationship Specialty Start Date End Date Curt Clark MD [address] [place] [id number] PCP - General Family Medicine 10/22/23 Projection Camera Operator Relationship Specialty Start Date End Date Curt Clark MD [address] [place] [id number] PCP - General Family Medicine 10/22/23 Goals (unrecognized section and content) Goals may be documented in a n alternate section FOR RECORDS PERTAINING TO PATIENTS WHO ARE OR HAVE BEEN ENROLLED IN A CHEMICAL DEPENDENCY/SUBSTANCEABUSE PROGRAM, SOME INFORMATION MAY BE OMITTED. This clinical summary was aggregated from multiple sources. Caution should be exercised in using it in the provision of clinical care. This summary normalizes information from multiple sources, and as a consequence, information in this document may materially change the coding, format and clinical context of patient data. In addition, data may be omitted in some cases. CLINICAL DECISIONS SHOULD BE BASED ON THE PRIMARY CLINICAL RECORDS. [facility]. provides no warranty or guarantee of the accuracy or completeness of information in this document.
[2023-12-27 08:49] LABS: Hematocrit 40.2 % (36.0-48.0); Hemoglobin 12.9 g/dL (12.0-16.0); Mean Corpuscular HGB Conc 32.1 g/dL (29.9-35.2); Mean Corpuscular Hemoglobin 31.5 pg (26.7-34.0); Mean Corpuscular Volume 98.3 fL (81.0-99.0); Mean Platelet Volume 11.3 fL (9.5-13.5); Platelet Count 195 10^3/uL (150-450); Red Blood Count 4.09 10^6/uL (4.20-5.40); Red Cell Distribution Width 12.5 % (11.0-15.0); White Blood Count 8.3 10^3/uL (4.0-11.0)
[2023-12-27 09:12] LABS: Bilirubin Urine NEGATIVE (NEGATIVE); Blood Urine NEGATIVE (NEGATIVE); Clarity Urine CLEAR (CLEAR); Color Urine LT. YELLOW (YELLOW); Glucose Urine UA NEGATIVE (NEGATIVE); Ketones Urine NEGATIVE (NEGATIVE); Leukocyte Esterase Urine NEGATIVE (NEGATIVE); Nitrite Urine NEGATIVE (NEGATIVE); Protein Urine NEGATIVE (NEG/TRACE); Urobilinogen Urine 0.2 EU/dL (0.2-1.0); pH Urine 6.5 (5.0-9.0)
[2023-12-27 09:16] LABS: Creatinine Urine Random 59.98 mg/dL (20.00-300.00); Protein Creatinine Ratio Urine 0.45; Total Protein Urine Random 27.1 mg/dL (<=11.9)
[2023-12-27 09:17] LABS: Albumin Level 3.2 g/dL (3.4-5.0); Anion Gap 13.1; BUN Creatinine Ratio 12.5; Calcium 8.4 mg/dL (8.5-10.1); Carbon Dioxide 24.3 mmol/L (21.0-32.0); Chloride 108 mmol/L (98-107); Estimated GFR (African America 22 (>=60); Estimated GFR (Non-African Ame 18 (>=60); Glucose 88 mg/dL (74-106); Magnesium 2.1 mg/dL (1.8-2.4); Phosphorus 4.2 mg/dL (2.6-4.7); Potassium 4.4 mmol/L (3.5-5.1); Sodium 141 mmol/L (136-145); Uric Acid 5.9 mg/dL (2.6-6.0)
[2023-12-27 10:06] LABS: Bacteria Urine TRACE #/HPF (NONE SEEN); Cast Seen? NONE SEEN #/LPF (NONE SEEN); Crystals Seen? None Seen #/HPF (None Seen); Mucus Urine NONE SEEN (NONE SEEN); RBC Urine 0-2 #/HPF (0-2); Squamous Epithelial Cell Urine RARE #/LPF (NONE/RARE); WBC Urine 0-2 #/HPF (NONE SEEN)
[2023-12-28 12:02] LABS: PTH, Intact 78 pg/mL (15-65)
== END 2023-12-27 08:17 | disposition home or self-care (01) ==
LOC: LAB 08:18
PROVIDERS: PCP Family Medicine; Visit Provider Internal Medicine
DX: I12.9 Hypertensive chronic kidney disease with stage 1 through stage 4 chronic kidney disease, or unspecified chronic kidney disease (principal); N18.4 Chronic kidney disease, stage 4 (severe); N20.0 Calculus of kidney; E11.22 Type 2 diabetes mellitus with diabetic chronic kidney disease; N25.81 Secondary hyperparathyroidism of renal origin; E55.9 Vitamin D deficiency, unspecified; R31.29 Other microscopic hematuria; C90.00 Multiple myeloma not having achieved remission; P19.9 Metabolic acidemia in newborn, unspecified
CPT/HCPCS: 36415; 80069; 81001; 82306; 82570; 83735; 83970; 84156; 84550; 85027

== ENCOUNTER 2024-01-05 10:36 | Outpatient (OUT) | payer MEDICARE, OTHER, SELFPAY ==
--- NOTE | 2024-01-05 10:52 | XR_ITS ---
[address] [address] Patient Name: MARTHA GOMEZ MRN: [id number] date: 1940 Sex: F Assigned Patient Location: [facility] Current Patient Location: [facility] Accession/Order Number: [id number] Exam Date: 01/05/2024 10:46 Report Date: 01/05/2024 23:00 At the request of: TYREE PARK Procedure: XR abdomen 1V EXAM: XR abdomen 1V HISTORY: Kidney Stones COMPARISON: 09/16/2023 TECHNIQUE: Abdomen supine view(s) FINDINGS: Bowel gas pattern is nonobstructed. There are numerous calcific lesions clustered in the left upper quadrant compatible with splenic granulomas. No discrete radiopaque urinary calculus. A small left pelvic calcification is unchanged and compatible with pelvic phleboliths. There are cholecystectomy clips. There are degenerative changes of the spine. XR/XR abdomen 1V IMPRESSION: 1. No discrete radiopaque urinary calculus. 2. Stable small left pelvic calcification compatible with phlebolith. 3. Normal bowel gas pattern. Electronically authenticated by: AUBREY KEN Date: 01/05/2024 23:00
== END 2024-01-05 10:37 | disposition home or self-care (01) ==
LOC: RAD 10:39
PROVIDERS: PCP Family Medicine; Visit Provider Urology
DX: N20.0 Calculus of kidney (principal)
CPT/HCPCS: 74018

== ENCOUNTER 2024-05-23 08:05 | Outpatient (OUT) | payer MEDICARE, OTHER, SELFPAY ==
[2024-05-23 09:28] LABS: Creatinine Urine Random 233.38 mg/dL (20.00-300.00); Microalbum Creatinine Ratio Ur 104.9 mg/g (0.0-29.9); Microalbumin Urine Random 24.5 mg/dL (<=30.0)
[2024-05-23 09:34] LABS: Albumin Level 3.2 g/dL (3.4-5.0); Anion Gap 14.7; BUN Creatinine Ratio 11.4; Calcium 8.7 mg/dL (8.5-10.1); Carbon Dioxide 26.2 mmol/L (21.0-32.0); Chloride 104 mmol/L (98-107); Chol HDL Ratio 2.7; Cholesterol 154 mg/dL (<=200); Estimated GFR (African America 20 (>=60); Estimated GFR (Non-African Ame 17 (>=60); Glucose 147 mg/dL (74-106); HDL Cholesterol 57 mg/dL (40-60); LDL Cholesterol Calculated 68.6 mg/dL; Phosphorus 4.1 mg/dL (2.6-4.7); Potassium 4.9 mmol/L (3.5-5.1); Sodium 140 mmol/L (136-145); Triglycerides 142 mg/dL (<=150); VLDL CHOLESTEROL 28.4 mg/dL
[2024-05-24 04:07] LABS: C-Peptide, Serum 3.7 ng/mL (1.1-4.4)
== END 2024-05-23 08:06 | disposition home or self-care (01) ==
LOC: LAB 08:07
PROVIDERS: PCP Family Medicine; Visit Provider Internal Medicine
DX: E11.65 Type 2 diabetes mellitus with hyperglycemia (principal); Z79.4 Long term (current) use of insulin; I10 Essential (primary) hypertension; E78.5 Hyperlipidemia, unspecified
CPT/HCPCS: 36415; 80061; 80069; 82043; 82306; 82570; 84681

== ENCOUNTER 2024-06-27 08:16 | Outpatient (OUT) | payer MEDICARE, OTHER, SELFPAY ==
--- OUTSIDE RECORDS SUMMARY | 2024-06-27 08:29 | XMS_ITS | CCD ---
Author Organization [facility] Care Team Providers Care Wireless Sales Representative Name Role Phone Curt Clark Unavailable Unavailable Unavailable CURT CLARK Primary Care Physician Lopez, Akin Unavailable Quita Ayon Unavailable MD Curt Clark Primary Care Provider DO Claire Choi II Attending Provider Curt Clark Unavailable MD Curt Clark Primary Care Provider DO Claire Choi II Attending Provider [phone] DR CURT CLARK Primary Care Unavailable AMBER, DR CURT Patel Consulting Unavailable CLARK, DR CURT Patel Attending Unavailable CLARK, DR CURT Patel Admitting Unavailable LOPEZ, AKIN Attending Unavailable LOPEZ, AKIN Admitting Unavailable AMBER, DR CURT Patel Primary Care Unavailable LIBERTY ROSSI Consulting Unavailable LOPEZ, AKIN Consulting Unavailable AMBER, DR CURT Patel Primary Care Unavailable TYREE PARK Attending Unavailable PARK, TYREE Admitting Unavailable TYREE PARK Consulting Unavailable CLAIRE CHOI Attending Unavailable CLAIRE CHOI Admitting Unavailable AMBER, DR CURT Patel Primary Care Unavailable CLAIRE CHOI Consulting Unavailable LOPEZ, AKIN Attending Unavailable LOPEZ, AKIN Admitting Unavailable LOPEZ, AKIN Consulting Unavailable AMBER, DR CURT Patel Primary Care Unavailable AMBER, DR CURT Patel Referring Unavailable AMBER, DR CURT Patel Consulting Unavailable AMBER, DR CURT Patel Attending Unavailable AMBER, DR CURT Patel Admitting Unavailable CLARK, DR [...] Care Unavailable ADAMOWICZ, CLAIRE Hanley Consulting Unavailable ADAMOWICZ, CLAIRE Hanley Admitting Unavailable ADAMOWICZ, CLAIRE Hanley Attending Unavailable CLARK, DR CURT Patel Primary Care Unavailable CLARK, DR CURT Patel Consulting Unavailable CLARK, DR CURT Patel Attending Unavailable CLARK, DR CURT Patel Admitting Unavailable FEIDER, WILD Consulting Unavailable CLARK, DR CURT Patel Primary Care Unavailable CLARK, DR CURT Patel Attending Unavailable CLARK, DR CURT Patel Admitting Unavailable ZIEBER, DIANN Rivers Consulting Unavailable CLARK, DR CURT Patel Consulting Unavailable KARLENE, ZO Attending Unavailable KARLENE, ZO Admitting Unavailable CLARK, DR CURT Patel Primary Care Unavailable ZIEBER, DIANN R Consulting Unavailable KARLENE, ZO Consulting Unavailable TRABOULSSI, [...] ADAMOWICZ, CLAIRE J Admitting Unavailable ADAMOWICZ, CLAIRE J Consulting Unavailable Clark, Dr. Curt Alva Primary Care Unav ailable Kendra, Dr. Rubi Referring Unavaila ble Traboulssi, Dr. Rubi Attending Unavaila ble Traboulssi, Dr. Rubi Referring Unavaila ble Traboulssi, Dr. Ruib Attending Unavaila ble Clark, Dr. Curt Alva Primary Care Unav MD Curt Rock Primary Care Provider DO Claire Choi II Attending Provider MD Nehemias Fernandez II Attending Provider Nehemias Fernandez II Unavailable [phone] Curt Clark MD Primary Care Provider Unavailable Curt Clark MD Primary Care Provider ELICIA RHODES Referring Unavailable CURT CLARK Primary Care UnavailMD Curt Osullivan Primary Care Provider DO Claire Choi II Attending Provider Tyree PARK Attending Unavailable Tyree PARK Attending Unavailable Tyree PARK Attending Unavailable MD Curt Clark Primary Care Provider RAMAKRISHNA Connolly Attending Provider ARTEMIO GRAJEDA Attending Unavailable MD Curt Clark Primary Care Provider DO Claire Choi II Attending Provider MD Curt Clark Attending Provider Curt Clark MD Primary Care Provider [phone] ELICIA RHODES Attending Unavailable CURT CLARK Primary Care Unavailable ELICIA RHODES Attending Unavailable ELICIA RHODES Referring Unavailable CURT CLARK Primary Care Unavailable MD Curt Clark Primary Care Provider DO Claire Choi II Attending Provider Curt Clark Primary Care Unavailable Curt Clark Attending Unavailable Curt Clark Admitting Unavailable Curt Clark Primary Care Unavailable Claire Choi II Admitting Unavaila ble Claire Choi II Attending Unavaila collin Allergies Allergy Classification Reported Allergen(s) Allergy Type Date of Onset Reaction(s) Facility lenalidomide (1 source) lenalidomide Drug Allergy 04-12-20 24 Rash, itching [facility] oxybutynin (2 sources) oxybutynin; Translations: [OXYBUTYNIN] Drug Allergy 10-04-20 23 Rash, rash, hives [facility] pregabalin (1 source) pregabalin Drug Allergy 04-12-20 24 double vision [facility] (20 sources) oxybutynin; Translations: [oxybutynin] Drug Allergy 07-13-20 22 Hives, Rash -[facility] DO Work Phone: (20 sources) lenalidomide; Translations: [lenalidomide] Drug Allergy 08-24-20 16 Unknown, Rash, itching, Rash, itching [facility] (20 sources) pregabalin; Translations: [pregabalin] Drug Allergy 07-13-20 22 Unknown, double vision [facility] (11 sources) pregabalin; Translations: [Lyrica] Drug Allergy DOUBLE VISION [facility] Repository (10 sources) REVILID Propensity to adverse reactions ITCHY [facility] [employer] Other (1 source) lenalidomide Drug Allergy 08-24-20 16 [facility] Repository (1 source) oxybutynin Drug Allergy 12-27-19 20 [facility] Rep[facility] (1 source) Allergies Reconciled Propensity to adverse reactions Unknown [employer] Other (1 source) patient allergy list reviewed by nurse or physicia Propensity to adverse reactions 11-24-19 16 Comment:Done [employer] Other (1 source) lenalidomide Drug Allergy 04-12-20 24 [facility] Repository (1 source) oxybutynin Drug Allergy 04-12-20 [facility] Repository (1 source) pregabalin Drug Allergy 04-12-20 [facility] Repository Medications Current Medications Medication Drug Class(es) Dates Sig (Normalized) Sig (Original) acyclovir 400 mg oral tablet (20 sources) Herpesvirus Nucleoside Analog DNA Polymerase Inhibitor, Herpes Simplex Virus Nucleoside Analog DNA Polymerase Inhibitor, Herpes Zoster Virus Nucleoside Analog DNA Polymerase Inhibitor Start: 01-02-2024 Acyclovir Active 0 .ROUTE .COMPLEX 180 January 02, 2024 1:10pm TAKE 1 TABLET TWICE A DAY Start: 07-14-2017 End: 03-23-2018 take 1 tablet by mouth once daily Acyclovir Discontinued 1 TAB PO daily November 29, 2017 5:03pm March 23, 2018 3:55pm Start: 10-05-2016 End: 01-02-2024 take 400 mg by mouth twice daily Acyclovir Discontinued 400 MG PO Twice daily November 07, 2019 2:31pm January 02, 2024 1:10pm amLODIPine 5 mg oral tablet (20 sources) Dihydropyridine Calcium Channel Valentina Start: 11-12-2023 End: 11-11-2024 take 1 tablet by mouth once daily Amlodipine Active 5 MG PO Daily January 04, 2024 1:00am [employer] tablet once a day; Note: Source Status: Continue; Provider: Amber Tiwari ( ) Start: 11-17-2021 amLODIPine Bes ylate 5 MG Oral Tablet Quantity: 90 Refills: [...] 14, 2017 12:00am December 21, 2017 10:10am aspirin 81 mg chewable tablet (20 sources) [...] Date: 01/29/20 Status: Ordered Start: 08-23-2018 take 40 mg by mouth once daily Atorvastatin Active 40 MG PO Daily August 23, 2018 12:00am Start: 07-14-2017 End: 08-23-2018 take 1 tablet [...] take 1 tablet by mouth twice daily at mealtime Carvedilol (Coreg) 12.5 mg tablet Active 12.5 MG PO Twice daily 60 November 07, 2019 1:00am must administer with a meal/food Start: 07-14-2017 End: 11-07-2019 take 6.25 mg [...] Oral, BID Start Date: 10/05/16 Status: Ordered cholecalciferol 0.125 mg oral tablet (20 sources) Vitamin D Start: 08-10-2018 Cholecalcifero l [...] tablet (25 mcg) by mouth once daily. Active daratumumab (2 sources) HQ51-jiroixax Cytolytic Antibody Start: 12-17-2019 daratumumab mg, IV, q6wk, Refills(s) 0 Start Date: 12/17/19 Status: Ordered docosahexaenoic acid 120 mg / eicosapentaenoic acid 180 mg oral capsule (12 sources) take 1 capsule by mouth twice daily fish oil concentrate ([place]-3) 120-180 mg capsule Take 1 capsule (1 g) by mouth 2 times a day. Active take 1 capsule by mouth twice da lilia Fish Oil 1000 MG Oral Capsule Take 1 capsule twice daily Quantity: 0 Refills: 0 Ordered: 25-Aug-2021 DO Active DULoxetine 20 mg delayed release oral capsule (1 source) Serotonin and Norepinephrine Reuptake Inhibitor Start: 05-31-2024 take 1 capsule by mouth once daily Duloxetine (Cymbalta) 20 mg capsule,delayed release(DR/EC) Active 20 MG PO Daily May 31, 2024 12:00am Fish Oils (20 sources) Start: 07-14-2017 take 1 capsule by mouth twice daily Fish Oil Active 1200 CAP [...] twice daily take 1 capsule by mo ut twice daily Fish Oil 1000 MG 1 capsule Orally Twice a day Active insulin isophane, human 100 unt/ml injectable suspension (20 sources) Start: 01-04-2024 Insulin Nph Is oph U-100 Human (Humulin N Nph U-100 Insulin) 100 unit/mL suspension Active UNIT SUBCUT January 04, 2024 1:00am [employer] units (using [employer] brand) Subcutaneous 15 units twice a day; Note: Source Status: Taking; Provider: Gabo Ace Start: 08-10-2018 End: 01-04-2024 Insulin Nph Isoph U-100 Amalia n (Humulin N Nph Insulin Kwikpen) 100 unit/mL (3 mL) Insulin Pen Discontinued 12 UNIT SUBCUT Every evening August 10, 2018 12:00am January 04, 2024 12:03pm insulin NPH, Iso phane, (HumuLIN N,NovoLIN N) 100 unit/mL injection Inject 15 Units under the skin once daily in the morning. Take as directed per insulin instructions. Active HumuLIN N 100 UN IT/ML 10 units (using [employer] brand) Subcutaneous 15 units twice a day Active HumuLIN N 100 UN IT/ML 10 [...] scale #1 Subcutaneous before meals tid Not-Taking meclizine hydrochloride 12.5 mg oral tablet (12 sources) Antiemetic take 1 tablet by mouth every twelve hours Meclizine HCl 12.5 MG 1 tablet as needed Orally every 12 hrs for 10 days Active Relion insulin (2 sources) Start: 03-03-20 inject 10 [IU] by subcutaneous injection at bedtime Relion insulin Relion insulin, 10 unit(s), SubCutaneous, Bedtime Start Date: 03/03/21 Status: Ordered rivaroxaban 15 mg oral tablet (20 sources) Factor Xa Inhibitor Start: 12-24-19 Xarelto Oral Start Date: 12/24/19 Status: Ordered Start: 11-07-2019 take 1 tablet by yaima th once daily at dinner Rivaroxaban (Xarelto) 15 mg tablet Active 15 MG PO Daily November 07, 2019 1:00am must administer with evening meal 0.25 mg, 0.5 mg dose 1.5 ml semaglutide 1.34 mg/ml pen injector (5 sources) Start: 03-26-2021 Ozempic (0.25 or 0.5 MG/DOSE) 2 MG/1.5ML 0.5mg Subcutaneous once weekly for 84 days March, Active sodium bicarbonate 650 mg oral tablet (20 sources) Start: 07-14-2017 take 650 mg by mouth twice daily [...] tablet (3 sources) Opioid Agonist Start: 04-26-20 take 1 tablet by mouth three times [...] Orally once a day Active vitamin B12 (20 sources) Vitamin B12 Start: 12-24-2019 Vitamin B-12 [...] / HYDROcodone bitartrate 5 mg oral tablet (10 sources) Opioid Agonist Start: 03-15-2018 End: 07-04-2018 take 1 tablet by mouth every four to six hours Hydrocodone-Acetam inophen Discontinued 1 TAB PO EVERY 4-6 HOURS March 15, 2018 12:00am July 04, 2018 11:54am amoxicillin 500 mg oral capsule (10 sources) Penicillin-class Antibacterial Start: 08-10-2018 End: 08-23-2018 take 500 mg by mouth every eight hours Amoxicillin Discontinued 500 MG PO Q8H August 10, 2018 12:00am August 23, 2018 8:42am cefdinir 300 mg oral capsule (6 sources) Cephalosporin Antibacterial Start: 04-12-2024 End: 05-31-2024 take 300 mg by mouth twice daily Cefdinir Discontinued 300 MG PO Twice daily April 12, 2024 12:00am May 31, 2024 11:27am Start: 09-26-2023 Cefdinir 300 M G as directed Orally bid for 7 days Sep, Active cephalexin 250 mg oral capsule (20 sources) Cephalosporin Antibacterial Start: 01-08-2020 End: 06-16-2021 [...] completed, # 2 tab(s), Refills(s) 0, Pharmacy: [id number], 167, cm, 01/10/23 11:12:00 EST, Height/Length [...] Four times daily June 16, 2021 12:00am sodium citrate-c itric acid (Oracit) 490-640 mg/5 mL solution Take by mouth once daily. Active Oracit 490-640 M G/5ML 10 ml after meals and at bedtime diluted with 1 to 3 ounces of water or juice Orally bid for 90 day(s) Active Oracit 490-640 M G/5ML Oral Solution USE DIRECTED. Quantity: 0 Refills: 0 Ordered: 25-Aug-2021 DO Active clopidogrel 75 mg oral tablet (20 sources) P2Y12 Platelet Inhibitor Start: 08-11-2018 End: 11-07-2019 take 1 tablet by mouth once daily Clopidogrel (Plavix) 75 mg tablet Discontinued 75 MG PO Daily August 23, 2018 8:41am November 07, 2019 3:50pm cyclobenzaprine hydrochloride 10 mg oral tablet (10 sources) Muscle Relaxant Start: 11-04-2020 End: 07-19-2023 take 10 mg by mouth three times daily Cyclobenzaprine Discontinued 10 MG PO Three times daily November 04, 2020 1:00am July 19, 2023 10:37am ergocalciferol 1.25 mg oral capsule (10 sources) Provitamin D2 Compound Start: 07-14-2017 End: 08-10-2018 take 1 capsule by mouth once daily Ergocalciferol (Vitamin D2) (Vitamin D2) 50,000 unit Capsule Discontinued 1 CAP PO daily July 14, 2017 12:00am August 10, 2018 11:37am Insulin Lispro (Humalog Kwikpen Insulin) 100 unit/mL Insulin Pen (8 sources) Start: 07-14-2017 End: 01-04-2024 Insulin Lispro (Humalog Kwikpen Insulin) 100 unit/mL Insulin Pen Discontinued 0 UNIT SUBCUT Before meals and at bedtime July 14, 2017 12:00am January 04, 2024 12:03pm SLIDING SCALE Start: 07-14-2017 End: 01-04-2024 Insulin Lispro (Humalog Kwik pen Insulin) 100 unit/mL Insulin Pen Discontinued 0 UNIT SUBCUT Before meals and at bedtime July 13, 2017 11:00pm January 04, 2024 11:03am SLIDING SCALE Start: 07-14-2017 Insulin Lispro (Humalog Kwikpen Insulin) 100 unit/mL Insulin Pen Active 0 unit SUBCUT Before meals and at bedtime July 14, 2017 12:00am SLIDING SCALE Start: 07-14-2017 Insulin Lispro (Humalog Kwikpen Insulin) 100 unit/mL Insulin Pen Active 0 unit SUBCUT Before meals and at bedtime July 13, 2017 11:00pm SLIDING SCALE linagliptin 5 mg oral tablet (10 sources) Dipeptidyl Peptidase 4 Inhibitor Start: 01-08-2020 End: 09-09-2020 take 1 tablet by mouth once daily Linagliptin (Tradjenta) 5 mg tablet Discontinued 5 MG PO Daily January 08, 2020 1:00am September 09, 2020 10:04am 24 hr oxybutynin chloride 10 mg extended release oral tablet (10 sources) Cholinergic Muscarinic Antagonist Start: 02-15-2018 End: 03-22-2018 take 10 mg by mouth once daily Oxybutynin Chloride Discontinued 10 MG PO Daily February 15, 2018 12:00am March 22, 2018 8:43am predniSONE 20 mg oral tablet (20 sources) Start: 01-02-2021 End: 05-19-2021 take 20 mg by mouth once daily Prednisone Discontinued 20 MG PO Daily January 02, 2021 1:00am May 19, 2021 8:58am 20mg PO daily for two days starting the day after each Daratumumab/Hyaluro nidase dose. Start: 07-14-2017 End: 05-18-2018 take 1 [...] PROCRIT INJECT ION - 1000 units Jun, [address] U raNITIdine 150 mg oral tablet (10 sources) Histamine-2 Receptor Antagonist Start: 03-15-2018 End: [...] 14, 2018 11:00pm July 04, 2018 10:55am triamcinolone acetonide 40 mg/ml injectable suspension (15 [...] Chronic Aortic; peripheral; and visceral artery aneurysms (20 sources) Ascending aorta dilatation; Translations: [Thoracic aortic ectasia] Onset: 3 10-04-2023 Chronic Calculus of urinary tract (20 sources) Kidney stone; Translations: [Calculus of kidney] Onset: 4 Resolved: 2 Episodic Cardiac dysrhythmias (20 sources) Persistent atrial fibrillation; Translations: [Atrial fibrillation] Onset: 3 01-08-2020 Chronic Cardiac dysrhythmias (10 sources) Palpitations; Translations: [Palpitations] 01-26-2020 Episodic Chronic kidney disease (20 sources) Chronic kidney disease stage 3; Translations: [Chronic kidney disease, Stage III (moderate)] Onset: 5 Resolved: 2 Chronic Chronic kidney disease (4 sources) Chronic kidney disease; Translations: [Chronic kidney disease, stage 3a (Multi)] Onset: 3 Chronic obstructive pulmonary disease and bronchiectasis (13 sources) Bronchitis; Translations: [Bronchitis, not specified as acute or chronic] Episodic Conditions associated with dizziness or vertigo (20 sources) Dizziness; Translations: [Dizziness and giddiness] Onset: 7 09-21-2017 Episodic Deficiency and other anemia (20 sources) Anemia in chronic kidney disease; Translations: [Anemia in chronic kidney disease] Chronic Deficiency and other anemia (10 sources) Anemia; Translations: [Anemia, unspecified] 09-09-2020 Episodic Deficiency and other anemia (10 sources) Nutritional anemia; Translations: [Vitamin B12 deficiency [...] 4 12-17-2019 Chronic Diabetes mellitus without complication (19 sources) Glycosuria; Translations: [Glycosuria] Onset: 2 Episodic Diseases of mouth; excluding dental (11 sources) Lesion of oral mucosa; Translations: [Other lesions of oral mucosa] Episodic Disorders of lipid metabolism (20 sources) Hyperlipidemia; Translations: [Other and unspecified hyperlipidemia] Onset: 3 12-17-2019 Chronic Essential hypertension (20 sources) Hypertensive disorder; Translations: [Unspecified essential hypertension] Onset: 3 12-17-2019 Chronic Fluid and electrolyte disorders (11 sources) Acidosis; Translations: [Acidemia] Onset: 1 Resolved: 2 Episodic Genitourinary symptoms and ill-defined conditions (13 sources) Urge incontinence; Translations: [Urge incontinence of urine] Onset: 2 Chronic Genitourinary symptoms and ill-defined conditions (20 sources) Retention of urine; Translations: [Retention of urine, unspecified] Onset: 1 Resolved: 2 Episodic Heart valve disorders (20 sources) Aortic incompetence, non-rheumatic ; Translations: [Aortic [...] Onset: 1 Resolved: 2 Chronic Nutritional deficiencies (10 sources) Cobalamin deficiency; Translations: [Deficiency of other specified B group vitamins] 03-19-2020 Episodic Other aftercare (20 sources) Drug therapy finding; Translations: [long term care phlebotomist (current) use of systemic steroids] Episodic Other aftercare (20 sources) Long-term current use of insulin; Translations: [long term care phlebotomist (current) use of insulin] 01-03-2024 Episodic Other aftercare (1 source) shelter (current) use of aspirin; Translations: [ASSISTANT SPEECH LANGUAGE PATHOLOGIST CURRENT USE OF ASPIRIN] Onset: 3 Episodic Other aftercare (1 source) Other termite control service representative (current) drug therapy; Translations: [OTH CORRECTION CURRENT DRUG THERAPY] Onset: 3 Episodic Other aftercare (1 source) long term care phlebotomist (current) use of insulin; Translations: [CORRECTION CURRENT USE OF INSULIN] Onset: 3 Episodic Other aftercare (1 source) long term care phlebotomist (current) use of anticoagulants; Translations: [ASSISTANT SPEECH LANGUAGE PATHOLOGIST CURRNT USE ANTICOAGULANTS] Onset: 3 Episodic Other aftercare (5 sources) Long-term current use of steroid; Translations: [long term care phlebotomist (current) use of systemic steroids] 01-03-2024 Episodic Other circulatory disease (1 source) Personal history of transient ischemic attack (TIA), and cerebral infarction without residual deficits; Translations: [PERS HX TIA AND CI NO RESID DEFICIT] Onset: 3 Episodic Other circulatory disease (11 sources) Elevated blood-pressure reading without diagnosis of hypertension; Translations: [Elevated blood-pressure reading, without diagnosis of hypertension] Episodic Other connective tissue disease (10 sources) Monoparesis - leg; Translations: [Other symptoms [...] insufficiency; Translations: [Secondary hyperparathyroidism of renal origin] 01-03-2024 Chronic Other diseases of kidney and ureters (8 sources) Secondary hyperparathyroidism of renal origin; Translations: [Secondary hyperparathyroidism (of renal origin)] Onset: 1 Resolved: 2 Chronic Other diseases of kidney and ureters (20 sources) Secondary hyperparathyroidism; Translations: [Secondary hyperparathyroidism of renal origin] 01-04-2024 Chronic Other ear and sense organ disorders (10 sources) Hearing loss; Translations: [Unspecified hearing loss, unspecified ear] 11-23-2017 Chronic Other ear and sense organ disorders (5 sources) Unspecified hearing loss, unspecified ear; Translations: [Unspecified hearing loss] 07-13-2022 Chronic Other ear and sense organ disorders (1 source) Conductive hearing loss; Translations: [Unspecified conductive hearing loss] Onset: 7 Chronic Other endocrine disorders (20 sources) 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; Translations: [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] 01-04-2024 Chronic Other lower respiratory disease (13 sources) Dyspnea at rest; Translations: [Shortness of breath] Onset: 3 10-04-2023 Episodic Other lower respiratory disease (2 sources) Shortness of breath; Translations: [Shortness of breath] Onset: 3 Episodic Other nervous system disorders (10 sources) Abnormal gait; Translations: [Unsteadiness on feet] 09-21-2017 Episodic Other nervous system disorders (10 sources) Unsteadiness on feet; Translations: [Abnormality of gait] 07-13-2022 Episodic Other nervous system disorders (16 sources) Impairment of balance; Translations: [Other abnormalities of gait and mobility] 01-04-2024 Episodic Other nervous system disorders (1 source) Other abnormalities of gait and mobility Episodic Other non-traumatic joint disorders (7 sources) Pain in left knee; Translations: [PAIN IN LEFT KNEE] Onset: 3 Episodic Other nutritional; endocrine; and metabolic disorders (20 sources) Body mass index 30+ - obesity; Translations: [Obesity, unspecified] Onset: 4 04-17-2024 Chronic Other nutritional; endocrine; and metabolic disorders (5 sources) Obesity; Translations: [Obesity, unspecified] Chronic Other nutritional; endocrine; and metabolic disorders (2 sources) Body mass index (BMI) 34.0-34.9, adult; Translations: [Body mass index (BMI) 34.0-34.9, adult] Onset: 4 Chronic Other nutritional; endocrine; and metabolic disorders [...] [Acute pharyngitis, unspecified] Episodic Pulmonary heart disease (20 sources) Secondary pulmonary hypertension; Translations: [Other chronic pulmonary heart diseases] Onset: 3 10-04-2023 Chronic Residual codes; unclassified (1 source) Acquired absence of both cervix and uterus; Translations: [ACQUIRED ABSENCE BOTH CERVIX AND UTERUS] Onset: 3 Episodic Residual codes; unclassified (1 source) Acquired absence of other specified parts of digestive tract; Translations: [ACQ ABSENCE OTH PART DIGESTV TRACT] Onset: 3 Episodic Residual codes; unclassified (2 sources) Never smoked tobacco; Translations: [Other specified health status] Onset: 4 04-17-2024 Episodic Residual codes; unclassified (2 sources) Other specified health status; Translations: [Other specified health status] Onset: 4 Episodic Secondary malignancies (1 source) Secondary malignant [...] (disorder); Translations: [Post COVID-19 condition, unspecified] Unclassified (4 sources) Other persistent atrial fibrillation; Translations: [Other persistent atrial fibrillation (Multi)] Onset: 3 Urinary tract infections (7 sources) Urinary tract infectious disease; Translations: [Urinary tract infection, site not specified] Onset: 4 04-12-2024 Episodic Viral infection (15 sources) Viral wart, unspecified; Translations: [Herpes zoster without complication] Onset: 4 Episodic Viral infection (4 sources) COVID-19; Translations: [COVID-19] Onset: 2 Past or Other Problems Problem Classification Problem Date Documented Da te Episodic/Chronic Blindness and vision defects (11 sources) Diplopia; Translations: [Diplopia] Onset: 12-13-2017 Episodic Headache; including migraine (1 source) Headache; [...] Unclassified (1 source) Lumbar pain M54.50 Unclassified (4 sources) Onset: 10-04-2023 Resolved: 04-17-2024 10-04-2023 Results Test Name Value Interpretation Reference Range Facility Cholesterol in LDL Calc [Mas s/Vol]on 05-23-2024 Cholesterol in LDL [Mass/Vol] 68.6 mg/dL [facility] Comment on above: <100 mg/dl [id number] 0-129 mg/dl NEAR OR ABOVE [id number] mg/dl BORDERLINE [id number] mg/dl HIGH>190 mg/dl VERY HIGH Cholesterol in VLDL Calc [Ma ss/Vol]on 05-23-2024 Cholesterol in VLDL [Mass/Vol] 28.4 mg/dL [facility] Estimated glomerular filtrat ion rate (GFR) non- Americanon 05-23-2024 GFR/1.73 sq M.predicted among non-blacks MDRD (S/P/Bld) [Vol rate/Area] 17 mL/min/{1.73_m2} Low >=60 [facility] - Chemistry and C hemistry - challengeon 05-23-2024 Albumin [Mass/Vol] 3.2 g/dL Low 3.4-5.0 [facility] Calcium [Mass/Vol] 8.7 mg/dL 8.5-10.1 [facility] Chloride [Moles/Vol] 104 mmol/L 98-107 [facility] Cholesterol [Mass/Vol] 154 mg/dL <=200 [facility] Cholesterol in HDL [Mass/Vol] 57 mg/dL 40-60 [facility] Comment on above: > or =60 mg/dl - LOW CARDIOVASCULAR RISK<40 mg/dl - HIGH CARDIOVASCULAR RISK CO2 [Moles/Vol] 26.2 mmol/L 21.0-32.0 [facility] Creatinine [Mass/Vol] 2.71 mg/dL High 0.55-1.02 [facility] GFR/1.73 sq M.predicted MDRD (S/P/Bld) [Vol rate/Area] 20 mL/min/{1.73_m2} Low >=60 [facility] Glucose [Mass/Vol] 147 mg/dL High 74-106 [facility] Potassium [Moles/Vol] 4.9 mmol/L 3.5-5.1 [facility] Sodium [Moles/Vol] 140 mmol/L 136-145 [facility] Triglyceride [Mass/Vol] 142 mg/dL <=150 [facility] Urea nitrogen [Mass/Vol] 31.0 mg/dL High 7.0-18.0 [facility] Urea nitrogen/Creatinine [Mass ratio] 11.4 mg/mg [facility] Microalbumin [Mass/volume] i n Urineon 05-23-2024 Albumin DL <= 20 mg/L (U) [Mass/Vol] 24.5 mg/dL <=30.0 [facility] No Panel Informationon 05-23 25-Hydroxy Vitamin D Total 46.7 ng/mL [facility] Comment on above: <20 ng/mL Vit D defi cient20-<30 ng/mL Vit D [id number] ng/mL Vit D sufficient>100 ng/mL Potential Toxicity C-Peptide 3.7 ng/mL 1.1-4.4 [facility] Comment on above: C-Peptide reference interval is for fasting patients.Performed at: [employer] [address] [id number] Director: Elpidio Delgado PhD, Phone: [phone] Phosphorus Level 4.1 mg/dL 2.6-4.7 [facility] Urine Random Creatinine 233.38 mg/dL 20.00-300. 00 [facility] Serum or plasma anion gap de terminationon 05-23-2024 Anion gap [Moles/Vol] 14.7 mmol/L [facility] Serum or plasma total choles terol/high density lipoprotein (HDL) cholesterol mass wilfred 05-23-2024 Cholesterol.total/Cholest tash in HDL [Mass ratio] 2.7 {ratio} [facility] Comment on above: 3.3 - 4.4 LOW RISK4. 4 - 7.1 AVERAGE RISK7.1 - 11.0 MODERATE RISK>11.0 HIGH RISK Urine microalbumin/creatinin e mass ratioon 05-23-2024 Albumin/Creatinine DL <= 20 mg/L (U) [Mass ratio] 104.9 mg/g High 0.0-29.9 [facility] Comment on above: NO MICROALBUMINURIA 0-29 MG/GCLINICAL MICROALBUMINURIA 30-300 MG/GMACROALBUMINURIA >300 MG/G Alanine aminotransferase [En zymatic activity/volume] in Serum or PlasmaOrdered By: Misti Mohsen on 04-25-2024 ALT [Catalytic activity/Vol] 12 U/L Normal 7-52 [facility] Comment on above: Performed By: #### C UU #### [address] Albumin [Mass/volume] in Ser um or PlasmaOrdered By: Misti Mohsen on 04-25-2024 Albumin [Mass/Vol] 3.4 g/dL Normal 2.9-4.4 [facility] Comment on above: Performed By: #### C UU #### [address] Albumin [Mass/volume] in Ser um or Plasma by Bromocresol green (BCG) dye binding methoOrdered By: Misti Mohsen on 04-25-2024 Albumin BCG dye [Mass/Vol] 3.6 g/dL 3.5-5.7 [facility] Alkaline phosphatase [Enzyma tic activity/volume] in Serum or PlasmaOrdered By: Misti Mohsen on 04-25-2024 ALP [Catalytic activity/Vol] 106 U/L High 34-104 [facility] Comment on above: Performed By: #### C UU #### [address] Aspartate aminotransferase [ Enzymatic activity/volume] in Serum or PlasmaOrdered By: Misti Mohsen on 04-25-2024 AST [Catalytic activity/Vol] 15 U/L Normal 13-39 [facility] Comment on above: Performed By: #### C UU #### [address] Automated basophil %Ordered By: Misti Mohsen on 04-25-2024 Basophils/100 WBC (Bld) 0.6 % Normal . [facility] Comment on above: Performed By: #### C UU #### [address] Automated basophil countOrde red By: Misti Mohsen on 04-25-2024 Basophils (Bld) [#/Vol] 0.0 10*3/uL Normal 0.0-0.2 [facility] Comment on above: Result Comment: PERF ORMED BY: [place] [address] PATHOLOGIST PEANUT BLANCHER LUIS DEE M.D. Performed By: #### C UU #### [address] Automated blood monocyte cou ntOrdered By: Misti Mohsen on 04-25-2024 Monocytes (Bld) [#/Vol] 0.5 10*3/uL Normal 0.0-0.8 [facility] Comment on above: Performed By: #### C UU #### [address] Automated eosinophil %Ordere d By: Misti Mohsen on 04-25-2024 Eosinophils/100 WBC (Bld) 1.4 % Normal . [facility] Comment on above: Performed By: #### C UU #### [address] Automated eosinophil countOr dered By: Misti Mohsen on 04-25-2024 Eosinophils (Bld) [#/Vol] 0.1 10*3/uL Normal 0.0-0.45 [facility] Comment on above: Performed By: #### C UU #### [address] Automated monocyte %Ordered By: Misti Mohsen on 04-25-2024 Monocytes/100 WBC (Bld) 6.3 % Normal . [facility] Comment on above: Performed By: #### C UU #### [address] Automated neutrophil %Ordere d By: Misti Mohsen on 04-25-2024 Neutrophils/100 WBC (Bld) 60.7 % Normal . [facility] Comment on above: Performed By: #### C UU #### [address] Bilirubin.total [Mass/volume ] in Serum or PlasmaOrdered By: Misti Connolly on 04-25-2024 Bilirubin [Mass/Vol] 0.3 mg/dL Normal 0.3-1.0 [facility] Comment on above: Performed By: #### C UU #### [address] Calcium [Mass/volume] in Ser um or PlasmaOrdered By: Misti Connolly on 04-25-2024 Calcium [Mass/Vol] 8.6 mg/dL Normal 8.6-10.3 [facility] Comment on above: Performed By: #### C UU #### [address] Carbon dioxide, total [Moles /volume] in Serum or PlasmaOrdered By: Misti Connolly on 04-25-2024 CO2 [Moles/Vol] 20.5 mmol/L Low 21.0-31.0 [facility] Comment on above: Performed By: #### C UU #### [address] Chloride [Moles/volume] in S amanda or PlasmaOrdered By: Misti Connolly on 04-25-2024 Chloride [Moles/Vol] 108 mmol/L High 98-107 [facility] Comment on above: Performed By: #### C UU #### [address] Complete Blood Count Auto Di ffon 04-25-2024 Mean Corpuscular HGB Conc 33.3 g/dL Normal 32.0-35.0 [facility] Comment on above: Performed By: #### C UU #### [address] NRBC% 0.1 /100{WBC} Normal 0-0.5 [facility] Comment on above: Performed By: #### C UU #### [address] Comprehensive Metabolic Pane natalia 04-25-2024 Albumin [Mass/Vol] 3.6 g/dL Normal 3.5-5.7 [facility] Comment on above: Performed By: #### C UU #### [address] Creatinine Clr Calc Pharmacy 20.35 Normal [facility] Comment on above: Result Comment: PERF ORMED BY: [place] [address] PATHOLOGIST PEANUT BLANCHER LUIS DEE M.D. Performed By: #### C UU #### [address] GFR/1.73 sq M.predicted MDRD (S/P/Bld) [Vol rate/Area] 19.217 mL/min/{1.73_m2} Normal [facility] Comment on above: Performed By: #### C UU #### [address] Creatinine [Mass/volume] in Serum or PlasmaOrdered By: Misti Connolly on 04-25-2024 Creatinine [Mass/Vol] 2.46 mg/dL High 0.60-1.20 [facility] Comment on above: Performed By: #### C UU #### [address] Erythrocyte distribution wid th [Ratio] by Automated countOrdered By: Misti Connolly on 04-25-2024 Erythrocyte distribution width (RBC) [Ratio] 14.0 % Normal 11.9-15.3 [facility] Comment on above: Performed By: #### C UU #### [address] Erythrocytes [#/volume] in B lood by Automated countOrdered By: Misti Connolly on 04-25-2024 RBC (Bld) [#/Vol] 3.86 10*6/uL Normal 3.60-5.00 [facility] Comment on above: Performed By: #### C UU #### [address] Free K+L LT Chains, Qn, Son 04-25-2024 Free [place] Light Chains, S 48.0 mg/L High 3.3-19.4 [facility] Comment on above: Performed By: #### C UU #### [address] Free Lambda Light Chains, S 30.4 mg/L High 5.7-26.3 [facility] Comment on above: Performed By: #### C UU #### [address] [place]/Lambda Ratio, S 1.58 Normal 0.26-1.65 [facility] Comment on above: Result Comment: Perf ormed at: [facility] - [facility] [address] [id number] [employer]: Elpidio Delgado PhD, Phone: [phone] PERFORMED BY: [place] [address] PATHOLOGIST PEANUT BLANCHER LUIS DEE M.D. Performed By: #### C UU #### [address] Glucose [Mass/volume] in Ser um or PlasmaOrdered By: Misti Connolly on 04-25-2024 Glucose [Mass/Vol] 242 mg/dL High 70-100 [facility] Comment on above: ADA recommended refe rence rangeRandom Glucose Reference Range is dependent on time and content of last meal. Glucose of more than 200 mg/dL in a nonstressed, ambulatory subject supports the diagnosis of Diabetes Mellitus. Result Comment: [place] om Glucose Reference Range is dependent on time and content of last meal. Glucose of more than 200 mg/dL in a nonstressed, ambulatory subject supports the diagnosis of Diabetes Mellitus. ADA recommended reference range Performed By: #### C UU #### [address] Hematocrit [Volume Fraction] of Blood by Automated countOrdered By: Misti Connolly on 04-25-2024 Hematocrit (Bld) [Volume fraction] 37.2 % Normal 34.0-46.4 [facility] Comment on above: Performed By: #### C UU #### [facility] [address] [place] [address] [place] Hemoglobin [Mass/volume] in BloodOrdered By: Misti Mirandapamela on 04-25-2024 Hemoglobin (Bld) [Mass/Vol] 12.4 g/dL Normal 11.8-15.4 [facility] Comment on above: Performed By: #### C UU #### [facility] [address] [place] [id number] [place] IgA [Mass/volume] in Serum o r PlasmaOrdered By: Claire Choi on 04-25-2024 IgA [Mass/Vol] 214 mg/dL 64-422 [facility] IgG [Mass/volume] in Serum o r PlasmaOrdered By: Claire Choi on 04-25-2024 IgG [Mass/Vol] 906 mg/dL [phone] [facility] IgM [Mass/volume] in Serum o r PlasmaOrdered By: Claire Choi on 04-25-2024 IgM [Mass/Vol] 165 mg/dL 26-217 [facility] Comment on above: Performed at: [address] Director: Elpidio Delgado PhD, Phone: [phone] Immunofixation,Serumon 04-25 Immunofixation, Serum Normal . [facility] Comment on above: Result Comment: No m onoclonality detected. Performed By: #### C UU #### [facility] [address] [place] [id number] [place] Immunoglobulin A, Serum 222 mg/dL Normal 64-422 [facility] Comment on above: Performed By: #### C UU #### [facility] [address] [place] [address] [place] Immunoglobulin G 892 mg/dL Normal 586-1602 [facility] Comment on above: Performed By: #### C UU #### [facility] [address] [place] [address] [place] Immunoglobulin M, Serum 161 mg/dL Normal 26-217 [facility] Comment on above: Result Comment: Perf ormed at: [employer] [facility] [address] [id number] [employer]: Elpidio Delgado PhD, Phone: [phone] Performed By: #### C UU #### [address] Immunoglobulin light chains. kappa.free [Mass/volume] in SerumOrdered By: Misti Connolly on 04-25-2024 Immunoglobulin light chains.kappa.free (S) [Mass/Vol] 48.0 mg/L High 3.3-19.4 [facility] Immunoglobulin light chains. kappa.free/Immunoglobulin light chains.lambda.free [MassOrdered By: Misti Connolly on 04-25-2024 Immunoglobulin light chains.kappa.free/Immunog lobulin light chains.lambda.free (S) [Mass ratio] 1.58 0.26-1.65 [facility] Comment on above: Performed at: [employer] [address] [id number] Director: Elpidio Delgado PhD, Phone: [phone] Immunoglobulin light chains. lambda.free [Mass/volume] in Serum or PlasmaOrdered By: Misti Connolly on 04-25-2024 Immunoglobulin light chains.lambda.free [Mass/Vol] 30.4 mg/L High 5.7-26.3 [facility] Immunoglobulins A/G/M, Qn, S debby 04-25-2024 Immunoglobulin A, Serum 214 mg/dL Normal 64-422 [facility] Comment on above: Performed By: #### I MM HECTOR #### [facility] , Immunoglobulin G 906 mg/dL Normal 586-1602 [facility] Comment on above: Performed By: #### I MM HECTOR #### [facility] , Immunoglobulin M, Serum 165 mg/dL Normal 26-217 [facility] Comment on above: Result Comment: Perf ormed at: [employer] [facility] [place] [address] [place], [place] [id number] [employer]: Elpidio Delgado PhD, Phone: [phone] PERFORMED BY: [place] [address] PATHOLOGIST PEANUT BLANCHER LUIS DEE M.D. Performed By: #### I MM HECTOR #### [facility] , Leukocytes [#/volume] correc dominick for nucleated erythrocytes in Blood by Automated counOrdered By: Misti Mohsen on 04-25-2024 WBC corrected for nucl RBC Auto (Bld) [#/Vol] 7.9 10*3/uL 3.8-11.6 [facility] Leukocytes [#/volume] in Blo od by Automated countOrdered By: Misti Mohsen on 04-25-2024 WBC (Bld) [#/Vol] 7.9 10*3/uL Normal 3.8-11.6 [facility] Comment on above: Performed By: #### C UU #### [place] [address] [place] Lymphocytes [#/volume] in Bl ood by Automated countOrdered By: Misti Mohsen on 04-25-2024 Lymphocytes (Bld) [#/Vol] 2.5 10*3/uL Normal 1.00-4.8 [facility] Comment on above: Performed By: #### C UU #### [place] [address] [place] Lymphocytes/100 leukocytes i n Blood by Automated countOrdered By: Misti Mohsen on 04-25-2024 Lymphocytes/100 WBC (Bld) 31.0 % Normal . [facility] Comment on above: Performed By: #### C UU #### [place] [address] [place] MCH [Entitic mass] by Automa dominick countOrdered By: Misti Mohsen on 04-25-2024 MCH (RBC) [Entitic mass] 32.1 pg Normal 24.7-34.3 [facility] Comment on above: Performed By: #### C UU #### [place] [address] [place] MCHC Auto (RBC) [Mass/Vol]Or dered By: Misti Connolly on 04-25-2024 MCHC (RBC) [Mass/Vol] 33.3 g/dL 32.0-35.0 [facility] MCV [Entitic volume] by Auto mated countOrdered By: Misti Jeanpamela on 04-25-2024 MCV (RBC) [Entitic vol] 96.4 fL Normal 80-100 [facility] Comment on above: Performed By: #### C UU #### [facility] [address] [place] [address] Neutrophils [#/volume] in Bl ood by Automated countOrdered By: Misti Mohsen on 04-25-2024 Neutrophils (Bld) [#/Vol] 4.8 10*3/uL Normal 1.8-7.7 [facility] Comment on above: Performed By: #### C UU #### [facility] [address] [place] [address] No Panel InformationOrdered By: Misti Mohsen on 04-25-2024 Estimated GFR (CKD-EPI) 19.217 mL/Min [facility] Creatinine Clearance (Chem 20.35 [facility] Protein Electrophoresis M-Krystian Not observed g/dL Not Observed [facility] Protein Electrophoresis Note See comment . [facility] Comment on above: Protein electrophore sis scan will follow via computer,mail, or petrophysicist delivery.Performed at: [facility] [place] [id number] Director: Elpidio Delgado PhD, Phone: [phone] Serum Immunofixation See comment . [facility] Comment on above: No monoclonality det ected. Nucleated erythrocytes [Pres ence] in Blood by Automated countOrdered By: Misti Mohsen on 04-25-2024 Nucleated RBC Auto Ql (Bld) 0.1 /100{WBC} 0-0.5 [facility] Platelet mean volume [Entiti c volume] in Blood by Automated countOrdered By: Misti Mohsen on 04-25-2024 Platelet mean volume (Bld) [Entitic vol] 10.2 fL Normal 6.3-10.7 [facility] Comment on above: Performed By: #### C UU #### [address] Platelets [#/volume] in Bloo d by Automated countOrdered By: Misti Connolly on 04-25-2024 Platelets (Bld) [#/Vol] 161 10*3/uL Normal 150-450 [facility] Comment on above: Performed By: #### C UU #### [address] Potassium [Moles/volume] in Serum or PlasmaOrdered By: Misti Connolly on 04-25-2024 Potassium [Moles/Vol] 4.6 mmol/L Normal 3.5-5.1 [facility] Comment on above: Performed By: #### C UU #### [address] Protein Electrophoresis, Ser umon 04-25-2024 Cneth-8-Ixnsxbjw 0.1 g/dL Normal 0.0-0.4 [facility] Comment on above: Performed By: #### C UU #### [address] Foyvg-4-Gkkewuox 0.9 g/dL Normal 0.4-1.0 [facility] Comment on above: Performed By: #### C UU #### [address] Beta Globulin 0.8 g/dL Normal 0.7-1.3 [facility] Comment on above: Performed By: #### C UU #### [address] Gamma Globulin 0.9 g/dL Normal 0.4-1.8 [facility] Comment on above: Performed By: #### C UU #### [address] M-Krystian Not Observed Normal Not Observed [facility] Comment on above: Performed By: #### C UU #### [address] SPE-Note Normal . [facility] Comment on above: Result Comment: Prot ein electrophoresis scan will follow via computer, mail, or petrophysicist delivery. Performed at: - [facility] [id number] [employer]: Elpidio Delgado PhD, Phone: [phone] Performed By: #### C UU #### [address] Protein [Mass/volume] in Ser um or PlasmaOrdered By: Misti Connolly on 04-25-2024 Protein [Mass/Vol] 6.3 g/dL Low 6.4-8.9 [facility] Comment on above: Performed By: #### C UU #### [address] Protein [Mass/Vol] 6.1 g/dL Normal 6.0-8.5 [facility] Comment on above: Performed By: #### C UU #### [address] Serum globulin measurement b y calculation (mass/volume)Ordered By: Misti Mohsen on 04-25-2024 Globulin (S) [Mass/Vol] 2.7 g/dL Normal 2.2-3.9 [facility] Comment on above: Performed By: #### C UU #### [address] Serum or plasma albumin/glob ulin mass ratioOrdered By: Misti Connolly on 04-25-2024 Albumin/Globulin [Mass ratio] 1.3 {ratio} Normal 0.7-1.7 [facility] Comment on above: Performed By: #### C UU #### [address] Serum or plasma alpha 1 glob ulin measurement by electrophoresis (mass/volume)Ordered By: Misti Connolly on 04-25-2024 Alpha 1 globulin Elph [Mass/Vol] 0.1 g/dL 0.0-0.4 [facility] Serum or plasma alpha 2 glob ulin measurement by electrophoresis (mass/volume)Ordered By: Misti Connolly on 04-25-2024 Alpha 2 globulin Elph [Mass/Vol] 0.9 g/dL 0.4-1.0 [facility] Serum or plasma anion gap de terminationOrdered By: Misti Connolly on 04-25-2024 Anion gap [Moles/Vol] 12.1 mmol/L Normal 6.0-15.0 [facility] Comment on above: Performed By: #### C UU #### [address] Serum or plasma beta globuli n measurement by electrophoresis (mass/volume)Ordered By: Misti Jeanpamela on 04-25-2024 Beta globulin Elph [Mass/Vol] 0.8 g/dL 0.7-1.3 [facility] Serum or plasma gamma globul in measurement by electrophoresis (mass/volume)Ordered By: Misti Jeanpamela on 04-25-2024 Gamma globulin Elph [Mass/Vol] 0.9 g/dL 0.4-1.8 [facility] Sodium [Moles/volume] in Ser um or PlasmaOrdered By: Misti Jeanpamela on 04-25-2024 Sodium [Moles/Vol] 136 mmol/L Normal 136-145 [facility] Comment on above: Performed By: #### C UU #### [address] Urea nitrogen [Mass/volume] in Serum or PlasmaOrdered By: Misti Jeanpamela on 04-25-2024 Urea nitrogen [Mass/Vol] 31 mg/dL High 7-25 [facility] Comment on above: Performed By: #### C UU #### [address] Laboratory - Chemistry and C hemistry - challengeon 04-12-2024 Bilirubin Ql (U) Negative [facility] Glucose (U) [Mass/Vol] Negative [facility] Ketones Ql (U) Negative [facility] pH (U) 6.0 [pH] [facility] Specific gravity (U) [Rel density] 1.005 [facility] Urobilinogen (U) [Mass/Vol] 0 mg/dL [facility] Laboratory - Specimen inform ationon 04-12-2024 Appearance (U) cloudy [facility] Color (U) yellow [facility] Laboratory - Urinalysison Leukocyte esterase Test strip Ql (U) 70+ [facility] Nitrite Ql (U) Negative [facility] Protein Ql (U) 30 [facility] No Panel Informationon 04-12 Urine Occult Blood Negative [facility] Urine Cultureon 04-12-2024 Bacteria identified Cx Nom (U) 20,000 colonies/ml mixed bacterial skin contaminants 2 Days PERFORMED BY: [place] [address] PATHOLOGIST PEANUT BLANCHER LUIS DEE M.D. Normal [facility] Comment on above: Performed By: #### C UU #### [facility] [address] [place] [address] Urine culture routineOrdered By: Curt Clark on 04-12-2024 Bacteria identified Cx Nom (U) 2 Days [facility] Glucose mean value [Mass/vol ume] in Blood Estimated from glycated hemoglobinon 02-15-2024 Average glucose Estimated from glycated hemoglobin (Bld) [Mass/Vol] 166 mg/dL [facility] Laboratory - Hematology and Cell countson 02-15-2024 HbA1c (Bld) [Mass fraction] 7.4 % 4.5-6.2 [facility] Comment on above: ADA RECOMMENDED LIMI T 4.0 - 6.0ADA THERAPEUTIC TARGET < 7.0ACTION SUGGESTED> 7.0 Alanine aminotransferase [En zymatic activity/volume] in Serum or PlasmaOrdered By: Claire Choi on 01-17-2024 ALT [Catalytic activity/Vol] 8 U/L Normal 7-52 [facility] Comment on above: Performed By: #### C MP, CBC #### [facility] [address] [place] [address] #### SPE, HAILEE SERUM, KAPPA #### [facility] , Albumin [Mass/volume] in Ser um or PlasmaOrdered By: Claire Choi on 01-17-2024 Albumin [Mass/Vol] 3.4 g/dL Normal 2.9-4.4 [facility] Comment on above: Performed By: #### C UU #### [address] Albumin [Mass/volume] in Ser um or Plasma by Bromocresol green (BCG) dye binding methoOrdered By: Claire Choi on 01-17-2024 Albumin BCG dye [Mass/Vol] 3.8 g/dL 3.5-5.7 [facility] Alkaline phosphatase [Enzyma tic activity/volume] in Serum or PlasmaOrdered By: Claire Choi on 01-17-2024 ALP [Catalytic activity/Vol] 103 U/L Normal 34-104 [facility] Comment on above: Performed By: #### C MP, CBC #### [place] [address] [place] #### SPE, HAILEE SERUM, KAPPA #### [facility] , Aspartate aminotransferase [ Enzymatic activity/volume] in Serum or PlasmaOrdered By: Claire Choi on 01-17-2024 AST [Catalytic activity/Vol] 12 U/L Low 13-39 [facility] Comment on above: Performed By: #### C MP, CBC #### [place] [address] [place] #### SPE, HAILEE SERUM, KAPPA #### [facility] , Automated basophil %Ordered By: Claire Choi on 01-17-2024 Basophils/100 WBC (Bld) 0.6 % Normal . [facility] Comment on above: Performed By: #### C MP, CBC #### [facility] [address] [place] [address] [place] #### SPE, HAILEE SERUM, KAPPA #### [facility] , Automated basophil countOrde red By: Claire Choi on 01-17-2024 Basophils (Bld) [#/Vol] 0.1 10*3/uL Normal 0.0-0.2 [facility] Comment on above: Result Comment: PERF ORMED BY: [place] [address] PATHOLOGIST PEANUT BLANCHER LUIS DEE M.D. Performed By: #### C MP, CBC #### [place] [address] [place] #### SPE, HAILEE SERUM, KAPPA #### [facility] , Automated blood monocyte cou ntOrdered By: Claire Choi on 01-17-2024 Monocytes (Bld) [#/Vol] 0.6 10*3/uL Normal 0.0-0.8 [facility] Comment on above: Performed By: #### C MP, CBC #### [place] [address] [place] #### SPE, HAILEE SERUM, KAPPA #### [facility] , Automated eosinophil %Ordere d By: Claire Choi on 01-17-2024 Eosinophils/100 WBC (Bld) 2.0 % Normal . [facility] Comment on above: Performed By: #### C MP, CBC #### [place] [address] [place] #### SPE, HAILEE SERUM, KAPPA #### [facility] , Automated eosinophil countOr dered By: Claire Choi on 01-17-2024 Eosinophils (Bld) [#/Vol] 0.2 10*3/uL Normal 0.0-0.45 [facility] Comment on above: Performed By: #### C MP, CBC #### [place] [address] [place] #### SPE, HAILEE SERUM, KAPPA #### [facility] , Automated monocyte %Ordered By: Claire Choi on 01-17-2024 Monocytes/100 WBC (Bld) 7.4 % Normal . [facility] Comment on above: Performed By: #### C MP, CBC #### [place] [id number] [place] #### SPE, HAILEE SERUM, KAPPA #### [facility] , Automated neutrophil %Ordere d By: Claire Choi on 01-17-2024 Neutrophils/100 WBC (Bld) 64.6 % Normal . [facility] Comment on above: Performed By: #### C MP, CBC #### [place] [address] [place] #### SPE, HAILEE SERUM, KAPPA #### [facility] , Bilirubin.total [Mass/volume ] in Serum or PlasmaOrdered By: Claire Choi on 01-17-2024 Bilirubin [Mass/Vol] 0.5 mg/dL Normal 0.3-1.0 [facility] Comment on above: Performed By: #### C MP, CBC #### [place] [address] [place] #### SPE, HAILEE SERUM, KAPPA #### [facility] , Calcium [Mass/volume] in Ser um or PlasmaOrdered By: Claire Choi on 01-17-2024 Calcium [Mass/Vol] 8.6 mg/dL Normal 8.6-10.3 [facility] Comment on above: Performed By: #### C MP, CBC #### [place] [address] [place] #### SPE, HAILEE SERUM, KAPPA #### [facility] , Carbon dioxide, total [Moles /volume] in Serum or PlasmaOrdered By: Claire Choi on 01-17-2024 CO2 [Moles/Vol] 20.0 mmol/L Low 21.0-31.0 [facility] Comment on above: Performed By: #### C MP, CBC #### [place] [address] [place] #### SPE, HAILEE SERUM, KAPPA #### [facility] , Chloride [Moles/volume] in S amanda or PlasmaOrdered By: Claire Choi on 01-17-2024 Chloride [Moles/Vol] 112 mmol/L High 98-107 [facility] Comment on above: Performed By: #### C MP, CBC #### [place] [address] [place] #### SPE, HAILEE SERUM, KAPPA #### [facility] , Complete Blood Count Auto Di ffon 01-17-2024 Mean Corpuscular HGB Conc 33.7 g/dL Normal 32.0-35.0 [facility] Comment on above: Performed By: #### C MP, CBC #### [place] [address] [place] #### SPE, HAILEE SERUM, KAPPA #### [facility] , NRBC% 0.0 /100{WBC} Normal 0-0.5 [facility] Comment on above: Performed By: #### C MP, CBC #### [place] [address] [place] #### SPE, HAILEE SERUM, KAPPA #### [facility] , Comprehensive Metabolic Pane natalia 01-17-2024 Albumin [Mass/Vol] 3.8 g/dL Normal 3.5-5.7 [facility] Comment on above: Performed By: #### C MP, CBC #### [place] [address] [place] #### SPE, HAILEE SERUM, KAPPA #### [facility] , Creatinine Clr Calc Pharmacy 21.10 Normal [facility] Comment on above: Result Comment: PERF ORMED BY: [place] [address] PATHOLOGIST PEANUT BLANCHER LUIS DEE M.D. Performed By: #### C MP, CBC #### [place] [address] [place] #### SPE, HAILEE SERUM, KAPPA #### [facility] , GFR/1.73 sq M.predicted MDRD (S/P/Bld) [Vol rate/Area] 20.724 mL/min/{1.73_m2} Normal [facility] Comment on above: Performed By: #### C MP, CBC #### [place] [address] [place] #### SPE, HAILEE SERUM, KAPPA #### [facility] , Creatinine [Mass/volume] in Serum or PlasmaOrdered By: Claire Choi on 01-17-2024 Creatinine [Mass/Vol] 2.31 mg/dL High 0.60-1.20 [facility] Comment on above: Performed By: #### C MP, CBC #### [place] [address] [place] #### SPE, HAILEE SERUM, KAPPA #### [facility] , Erythrocyte distribution wid th [Ratio] by Automated countOrdered By: Claire Choi on 01-17-2024 Erythrocyte distribution width (RBC) [Ratio] 13.3 % Normal 11.9-15.3 [facility] Comment on above: Performed By: #### C MP, CBC #### [place] [address] [place] #### SPE, HAILEE SERUM, KAPPA #### [facility] , Erythrocytes [#/volume] in B lood by Automated countOrdered By: Claire Choi on 01-17-2024 RBC (Bld) [#/Vol] 3.96 10*6/uL Normal 3.60-5.00 [facility] Comment on above: Performed By: #### C MP, CBC #### [place] [address] [place] #### SPE, HAILEE SERUM, KAPPA #### [facility] , Free K+L LT Chains, Qn, Son 01-17-2024 Free [place] Light Chains, S 39.5 mg/L High 3.3-19.4 [facility] Comment on above: Performed By: #### C UU #### [address] Free Lambda Light Chains, S 22.8 mg/L Normal 5.7-26.3 [facility] Comment on above: Performed By: #### C UU #### [address] [place]/Lambda Ratio, S 1.73 High 0.26-1.65 [facility] Comment on above: Result Comment: Perf ormed at: CB - [facility] [address] [id number] Oyster Unloader: Elpidio Delgado PhD, Phone: [phone] PERFORMED BY: [place] [address] PATHOLOGIST PEANUT BLANCHER LUIS DEE M.D. Performed By: #### C UU #### [address] Glucose [Mass/volume] in Ser um or PlasmaOrdered By: Claire Choi on 01-17-2024 Glucose [Mass/Vol] 150 mg/dL High 70-100 [facility] Comment on above: ADA recommended refe rence rangeRandom Glucose Reference Range is dependent on time and content of last meal. Glucose of more than 200 mg/dL in a nonstressed, ambulatory subject supports the diagnosis of Diabetes Mellitus. Result Comment: [place] om Glucose Reference Range is dependent on time and content of last meal. Glucose of more than 200 mg/dL in a nonstressed, ambulatory subject supports the diagnosis of Diabetes Mellitus. ADA recommended reference range Performed By: #### C MP, CBC #### [place] [address] [place] #### SPE, HAILEE SERUM, KAPPA #### [facility] , Hematocrit [Volume Fraction] of Blood by Automated countOrdered By: Claire Choi on 01-17-2024 Hematocrit (Bld) [Volume fraction] 37.6 % Normal 34.0-46.4 [facility] Comment on above: Performed By: #### C MP, CBC #### [place] [address] [place] #### SPE, HAILEE SERUM, KAPPA #### [facility] , Hemoglobin [Mass/volume] in BloodOrdered By: Claire Choi on 01-17-2024 Hemoglobin (Bld) [Mass/Vol] 12.7 g/dL Normal 11.8-15.4 [facility] Comment on above: Performed By: #### C MP, CBC #### [place] [address] [place] #### SPE, HAILEE SERUM, KAPPA #### [facility] , IgA [Mass/volume] in Serum o r PlasmaOrdered By: Claire Choi on 01-17-2024 IgA [Mass/Vol] 214 mg/dL 64-422 [facility] IgG [Mass/volume] in Serum o r PlasmaOrdered By: Claire Choi on 01-17-2024 IgG [Mass/Vol] 896 mg/dL 586-1602 [facility] IgM [Mass/volume] in Serum o r PlasmaOrdered By: Claire Choi on 01-17-2024 IgM [Mass/Vol] 187 mg/dL 26-217 [facility] Comment on above: Performed at: [place] [id number] Director: Elpidio Delgado PhD, Phone: [phone] Immunofixation,Serumon 01-16 Immunofixation, Serum Normal . [facility] Comment on above: Result Comment: No m onoclonality detected. Performed By: #### C UU #### [place] [id number] [place] Immunoglobulin A, Serum 214 mg/dL Normal 64-422 [facility] Comment on above: Performed By: #### C UU #### [place] [id number] [place] Immunoglobulin G 896 mg/dL Normal 586-1602 [facility] Comment on above: Performed By: #### C UU #### [address] [place] [address] [place] Immunoglobulin M, Serum 187 mg/dL Normal 26-217 [facility] Comment on above: Result Comment: Perf ormed at: CB - [facility] [place] [address] [place] [id number] Oyster Unloader: Elpidio Delgado PhD, Phone: [phone] Performed By: #### C UU #### [address] Immunoglobulin light chains. kappa.free [Mass/volume] in SerumOrdered By: Claire Choi on 01-17-2024 Immunoglobulin light chains.kappa.free (S) [Mass/Vol] 39.5 mg/L 3.3-19.4 [facility] Immunoglobulin light chains. kappa.free/Immunoglobulin light chains.lambda.free [MassOrdered By: Claire Choi on 01-17-2024 Immunoglobulin light chains.kappa.free/Immunog lobulin light chains.lambda.free (S) [Mass ratio] 1.73 0.26-1.65 [facility] Comment on above: Performed at: CB - [facility] [address] [id number] Director: Elpidio Delgado PhD, Phone: [phone] Immunoglobulin light chains. lambda.free [Mass/volume] in Serum or PlasmaOrdered By: Claire Choi on 01-17-2024 Immunoglobulin light chains.lambda.free [Mass/Vol] 22.8 mg/L 5.7-26.3 [facility] Leukocytes [#/volume] correc dominick for nucleated erythrocytes in Blood by Automated counOrdered By: Claire Choi on 01-17-2024 WBC corrected for nucl RBC Auto (Bld) [#/Vol] 8.5 10*3/uL 3.8-11.6 [facility] Leukocytes [#/volume] in Blo od by Automated countOrdered By: Claire Choi on 01-17-2024 WBC (Bld) [#/Vol] 8.5 10*3/uL Normal 3.8-11.6 [facility] Comment on above: Performed By: #### C MP, CBC #### [place] [address] [place] #### SPE, HAILEE SERUM, KAPPA #### [facility] , Lymphocytes [#/volume] in Bl ood by Automated countOrdered By: Claire Choi on 01-17-2024 Lymphocytes (Bld) [#/Vol] 2.2 10*3/uL Normal 1.00-4.8 [facility] Comment on above: Performed By: #### C MP, CBC #### [place] [address] [place] #### SPE, HAILEE SERUM, KAPPA #### [facility] , Lymphocytes/100 leukocytes i n Blood by Automated countOrdered By: Claire Choi on 01-17-2024 Lymphocytes/100 WBC (Bld) 25.4 % Normal . [facility] Comment on above: Performed By: #### C MP, CBC #### [place] [address] [place] #### SPE, HAILEE SERUM, KAPPA #### [facility] , MCH [Entitic mass] by Automa dominick countOrdered By: Claire Choi on 01-17-2024 MCH (RBC) [Entitic mass] 31.9 pg Normal 24.7-34.3 [facility] Comment on above: Performed By: #### C MP, CBC #### [facility] [address] [place] [address] [place] #### SPE, HAILEE SERUM, KAPPA #### [facility] , MCHC Auto (RBC) [Mass/Vol]Or dered By: Claire Choi on 01-17-2024 MCHC (RBC) [Mass/Vol] 33.7 g/dL 32.0-35.0 [facility] MCV [Entitic volume] by Auto mated countOrdered By: Claire Choi on 01-17-2024 MCV (RBC) [Entitic vol] 94.8 fL Normal 80-100 [facility] Comment on above: Performed By: #### C MP, CBC #### [facility] [address] [place] [address] [place] #### SPE, HAILEE SERUM, KAPPA #### [facility] , Neutrophils [#/volume] in Bl ood by Automated countOrdered By: Claire Choi on 01-17-2024 Neutrophils (Bld) [#/Vol] 5.5 10*3/uL Normal 1.8-7.7 [facility] Comment on above: Performed By: #### C MP, CBC #### [facility] [address] [place] [address] [place] #### SPE, HAILEE SERUM, KAPPA #### [facility] , No Panel InformationOrdered By: Claire Choi on 01-17-2024 Estimated GFR (CKD-EPI) 20.724 mL/Min [facility] Creatinine Clearance (Chem 21.10 [facility] Protein Electrophoresis M-Krystian Comment: g/dL Not Observed [facility] Comment on above: SPE shows a beta hector ma band of restricted mobility due tofibrinogen in the plasma sample submitted. Protein Electrophoresis Note See comment . [facility] Comment on above: Protein electrophore sis scan will follow via computer,mail, or petrophysicist delivery.Performed at: [place] [id number] Director: Elpidio Delgado PhD, Phone: [phone] Serum Immunofixation See comment . [facility] Comment on above: No monoclonality det ected. Nucleated erythrocytes [Pres ence] in Blood by Automated countOrdered By: Claire Choi on 01-17-2024 Nucleated RBC Auto Ql (Bld) 0.0 /100{WBC} 0-0.5 [facility] Platelet mean volume [Entiti c volume] in Blood by Automated countOrdered By: Claire Choi on 01-17-2024 Platelet mean volume (Bld) [Entitic vol] 10.1 fL Normal 6.3-10.7 [facility] Comment on above: Performed By: #### C MP, CBC #### [address] #### SPE, HAILEE SERUM, KAPPA #### [facility] , Platelets [#/volume] in Bloo d by Automated countOrdered By: Claire Choi on 01-17-2024 Platelets (Bld) [#/Vol] 201 10*3/uL Normal 150-450 [facility] Comment on above: Performed By: #### C MP, CBC #### [place] [address] [place] #### SPE, HAILEE SERUM, KAPPA #### [facility] , Potassium [Moles/volume] in Serum or PlasmaOrdered By: Claire Choi on 01-17-2024 Potassium [Moles/Vol] 4.6 mmol/L Normal 3.5-5.1 [facility] Comment on above: Performed By: #### C MP, CBC #### [address] #### SPE, HAILEE SERUM, KAPPA #### [facility] , Protein Electrophoresis, Ser umon 01-17-2024 Xjqeh-8-Lofzpylr 0.1 g/dL Normal 0.0-0.4 [facility] Comment on above: Performed By: #### C UU #### [address] Cwtmu-[id number] 0.8 g/dL Normal 0.4-1.0 [facility] Comment on above: Performed By: #### C UU #### [place] [address] [place] Beta Globulin 0.9 g/dL Normal 0.7-1.3 [facility] Comment on above: Performed By: #### C UU #### [place] [address] [place] Gamma Globulin 1.2 g/dL Normal 0.4-1.8 [facility] Comment on above: Performed By: #### C UU #### [place] [address] M-Krystian Comment: Normal Not Observed [facility] Comment on above: Result Comment: SPE shows a beta gamma band of restricted mobility due to fibrinogen in the plasma sample submitted. Performed By: #### C UU #### [address] SPE-Note Normal . [facility] Comment on above: Result Comment: Prot ein electrophoresis scan will follow via computer, mail, or petrophysicist delivery. Performed at: [facility] [address] [id number] Oyster Unloader: Elpidio Delgado PhD, Phone: [phone] Performed By: #### C UU #### [address] Protein [Mass/volume] in Ser um or PlasmaOrdered By: Claire Choi on 01-17-2024 Protein [Mass/Vol] 6.6 g/dL Normal 6.4-8.9 [facility] Comment on above: Performed By: #### C MP, CBC #### [address] #### SPE, HAILEE SERUM, KAPPA #### [facility] , Protein [Mass/Vol] 6.5 g/dL Normal 6.0-8.5 [facility] Comment on above: Performed By: #### C UU #### [address] Serum globulin measurement ( mass/volume)Ordered By: Claire Choi on 01-17-2024 Globulin (S) [Mass/Vol] 3.1 g/dL Normal 2.2-3.9 [facility] Comment on above: Performed By: #### C UU #### [address] Serum globulin measurement b y calculation (mass/volume)Ordered By: Claire Choi on 01-17-2024 Globulin (S) [Mass/Vol] 2.8 g/dL Normal [facility] Comment on above: Performed By: #### C MP, CBC #### [facility] [address] [place] [address] [place] #### SPE, HAILEE SERUM, KAPPA #### [facility] , Serum or plasma albumin/glob ulin mass ratioOrdered By: Claire Choi on 01-17-2024 Albumin/Globulin [Mass ratio] 1.4 {ratio} Normal [facility] Comment on above: Performed By: #### C MP, CBC #### [facility] [address] [place] [address] [place] #### SPE, HAILEE SERUM, KAPPA #### [facility] , Albumin/Globulin [Mass ratio] 1.1 {ratio} Normal 0.7-1.7 [facility] Comment on above: Performed By: #### C UU #### [address] Serum or plasma alpha 1 glob ulin measurement by electrophoresis (mass/volume)Ordered By: Claire Choi on 01-17-2024 Alpha 1 globulin Elph [Mass/Vol] 0.1 g/dL 0.0-0.4 [facility] Serum or plasma alpha 2 glob ulin measurement by electrophoresis (mass/volume)Ordered By: Claire Choi on 01-17-2024 Alpha 2 globulin Elph [Mass/Vol] 0.8 g/dL 0.4-1.0 [facility] Serum or plasma anion gap de terminationOrdered By: Claire Choi on 01-17-2024 Anion gap [Moles/Vol] 10.6 mmol/L Normal 6.0-15.0 [facility] Comment on above: Performed By: #### C MP, CBC #### [facility] [address] [place] [address] [place] #### SPE, HAILEE SERUM, KAPPA #### [facility] , Serum or plasma beta globuli n measurement by electrophoresis (mass/volume)Ordered By: Claire Choi on 01-17-2024 Beta globulin Elph [Mass/Vol] 0.9 g/dL 0.7-1.3 [facility] Serum or plasma gamma globul in measurement by electrophoresis (mass/volume)Ordered By: Claire Choi on 01-17-2024 Gamma globulin Elph [Mass/Vol] 1.2 g/dL 0.4-1.8 [facility] Sodium [Moles/volume] in Ser um or PlasmaOrdered By: Claire Choi on 01-17-2024 Sodium [Moles/Vol] 138 mmol/L Normal 136-145 [facility] Comment on above: Performed By: #### C MP, CBC #### [facility] [address] [place] [address] [place] #### SPE, HAILEE SERUM, KAPPA #### [facility] , Urea nitrogen [Mass/volume] in Serum or PlasmaOrdered By: Claire Choi on 01-17-2024 Urea nitrogen [Mass/Vol] 41 mg/dL High 7-25 [facility] Comment on above: Performed By: #### C MP, CBC #### [facility] [address] [place] [address] [place] #### SPE, HAILEE SERUM, KAPPA #### [facility] , Ambulatory Visit Summaryon 0 01-09-2024 Ambulatory Visit Summary HAILEE TRIVEDI :1940 Visit Date:01/09/2024 Ambulatory Visit Instructions Your Diagnosis History of kidney stones Microhematuria Nocturia Tests Performed XR Abdomen 1 View -- Results Pending -- Please visit your patient portal for your results or contact your primary care physician. Your Care Team Attending Physician - XAVIER VELAZQUEZ, Tyree Rivers Primary Care Physician - CURT CLARK MD This Is Your Medications List citric acid-sodium citrate (Oracit oral solution) Contact prescribing physician if questions or concerns Non-Formulary Medication (Relion insulin) acyclovir amlodipine (amLODIPine 10 mg Tab) aspirin atorvastatin (Lipitor) carvedilol (carvedilol 3.125 mg Tab) cholecalciferol (Vitamin D3 5000 intl units oral tablet) cyanocobalamin (Vitamin B-12) daratumumab omega-3 polyunsaturated fatty [...] Hemorrhoidectomy, Hysterectomy. Discharge Vitals Heart Rate (Peripheral) 79 Respiratory Rate 16 Blood Pressure 132/87 Height 167 cm Height 66 in Weight 85.7 kg Weight 188.54 lb BMI 30.73 What to do next Scheduled Follow-Up Appointments Tuesday 10:15 AM EST With: XAVIER VELAZQUEZ, Tyree Rivers Where: [facility] Patient Educationon 01-09-20 24 Patient Education Nephrology Dietary Guidelines to Help Prevent Kidney Stones Kidney stones are deposits of minerals and salts that form inside your kidneys. Your risk of developing kidney stones may be greater depending on your diet, your lifestyle, the medicines you take, and whether you have certain medical conditions. Most people can lower their risks of developing kidney stones by following these dietary guidelines. Your dietitian may give you more specific instructions depending on your overall health and the type of kidney stones you tend to develop. What are tips for following this plan? Reading food labels ? Choose foods with no salt added or low-salt labels. Limit your salt (sodium) intake to less than 1,500 mg a day. ? Choose foods with calcium for each meal and snack. Try to eat about 300 mg of calcium at each meal. Foods that contain 200?500 mg of calcium a serving include: ? 8 oz (237 mL) of milk, calcium-fortifiedno n-dairy milk, and calcium-fortifiedfr uit juice. Calcium-fortified means that calcium has been added to these drinks. ? 8 oz (237 mL) of kefir, yogurt, and soy yogurt. ? 4 oz (114 g) of tofu. ? 1 oz (28 g) of cheese. ? 1 cup (150 g) of dried figs. ? 1 cup (91 g) of cooked broccoli. ? One 3 oz (85 g) can of sardines or mackerel. Most people need 1,000?1,500 mg of calcium a day. Talk to your dietitian about how much calcium is recommended for you. Shopping ? Buy plenty of fresh fruits and vegetables. Most people do not need to avoid fruits and vegetables, even if these foods contain nutrients that may contribute to kidney stones. ? When shopping for convenience foods, choose: ? Whole pieces of fruit. ? Pre-made salads with dressing on the side. ? Low-fat fruit and yogurt smoothies. ? Avoid buying frozen meals or prepared deli foods. These can be high in sodium. ? Look for foods with live cultures, such as yogurt and kefir. ? Choose high-fiber grains, such as whole-wheat breads, oat bran, and wheat cereals. Cooking ? Do not add salt to food when cooking. Place a salt shaker on the table and allow each person to add their own salt to taste. ? Use vegetable protein, such as beans, textured vegetable protein (TVP), or tofu, instead of meat in pasta, casseroles, and soups. Meal planning ? Eat less salt, if told by your dietitian. To do this: ? Avoid eating processed or pre-made food. ? Avoid eating fast food. ? [...] or seafood. ? When you prepare animal proteins, cut pieces into small portion sizes. For most meat and fish, one serving is about the size of the palm of your hand. ? Eat at least five servings of fresh fruits and vegetables each day. To do this: ? Keep fruits and vegetables on hand for snacks. ? Eat one piece of fruit or a handful of berries with breakfast. ? Have a salad and fruit at lunch. ? Have two kinds of vegetables at dinner. ? You may be told to limit foods that are high in a substance called oxalate. These include: ? Spinach (cooked), rhubarb, beets, sweet potatoes, and [place] chard. ? Peanuts. ? Potato chips, frisian fries, and baked potatoes with skin on. ? Nuts and nut products. ? Chocolate. ? If you regularly take a diuretic medicine, make sure to eat at least 1 or 2 servings of fruits or vegetables that are high in potassium each day. These include: ? Avocado. ? Banana. ? [place], prune, carrot, or tomato juice. ? Baked potato. ? Cabbage. ? Beans and split peas. Lifestyle ? Drink enough fluid to keep your urine pale yellow. This is the most important thing you can do. Spread your fluid intake throughout the day. ? If you drink alcohol: ? Limit how much you have to: ? 0?1 drink a day for women who are not . ? 0?2 drinks a day for men. ? Know how much alcohol is in your drink. In the [place] one drink equals one 12 oz bottle of beer (355 mL), one 5 oz glass of wine (148 mL), or one 1? oz glass of hard liquor (44 mL). ? Lose weight if told by your health care provider. Work with your dietitian to find an eating plan and weight loss strategies that work best for you. General information ? Talk to your health care provider and dietitian about taking daily supplements. Depending on your health and the cause of your kidney stones, you may be told: ? Do not take high-dose supplements of vitamin C (1,000 mg a day or more). ? To take a calcium supplement. ? To take a daily probiotic supplement. ? To take other supplements such as magnesium, fish oil, or vitamin B6. ? Take oqxz-oir-cmvotax and prescription medicines only as told by your health care provider. These include supplements. What foods sh (more content not included)... Normal [facility] Urology Office/Clinic Noteon 01-09-2024 Urology Office/Clinic Note Chief Complaint hx of kidney stones HPI Staff 1 year with TAIWO. Dx: hx of kidney stone, microhematuria, nocturia, glucosuria and incomplete bladder emptying. Dysuria: no Incomplete bladder emptying: pt feels she is emptying well Hematuria: no Frequency: no Urgency: only when she holds it too long Nocturia: 1-2x Stream: good steady stream Leaking: no Post void dripping: no Wearing pads/ Depends: no Urge incontinence: no Stress incontinence: no Incontinence without Sensory Awareness: no Abdominal pain: no Flank pain: no Sexual complaints: no History of Present Illness Tests reviewed: reviewed UA, KUB I have reviewed the previous health record information and history for this patient from Dr. Park. I have reviewed and verified the staff HPI to be accurate for this encounter. Review of Systems PHQ Score Initial Depression Screen Score: 0 SCORE ROS - Provider Constitutional: denies weight loss, [...] HPI. Physical Exam Vitals & Measurements HR: 79(Peripheral) RR: 16 BP: 132/87 HT: 66 in HT: 167 cm WT: 85.7 kg WT: 188.54 lb BMI: 30.73 General Appearance: alert , no acute distress, well nourished, well developed female. Genitourinary: bladder nonpalpable, no flank pain. Assessment/Plan 1. History of kidney stones (Z87.442: Personal history of urinary calculi) S/p Left stone manip done 02/19/21 due to a 9 mm and two 3 mm left ureteral stones. Repeat Metabolic w/up done 03/09/21 shows low volume and low citric acid. KUB 08/24/21 - stable 4 mm left renal calculi. No ureteral stone visualized. KUB 12/11/21 - negative for stones. KUB 01/06/23 - no appreciable urinary tract calculi. KUB 01/05/24 TBH - no discrete urinary calculus. Taking Sodium Bicarb and Oracit liquid. States Oracit now costs $[address] Suarez ($130). Sips on Oracit throughout the day vs taking 4x/day. Discussed GoodRx and using an alternative pharmacy. Discussed imaging results w/ pt, continues to not having any visible stones. Denies any recent stone episodes. Will continue to monitor. -Cont Sodium Bicarb -Cont Oracit liquid. New rx sent to [facility]. -KUB in 1 yr 2. Microhematuria (R31.29: Other microscopic hematuria) Cytology 01/10/23 - neg. S/p Cysto 02/21/23 - neg for bladder tumors and stones. No prolapse or CHINMAY. Previously had microscopic blood in her urine and was also reported by Dr. Suarez. Hematuria workup was neg. UA today shows trace-lysed blood. Denies gross hematuria. 3. Nocturia (R35.1: Nocturia) Ongoing, 1-2x/night to void. Not bothersome. Follow-up With When Contact Information XAVIER VELAZQUEZ, Tyree Rivers, [facility] [address], [place] [address] [phone] Additional Instructions: 1 yr w/ KUB Patient Education Dietary Guidelines to Help Prevent Kidney Stones I, Tanya Schwartz, personally scribed for Dr. Park on 01/09/2024 09:41:09. . Documentation recorded by the scribe, Tanya Schwartz, accurately reflects the services(s) I performed and decisions made by me. Authenticated by Dr. Park on 01/09/2024 09:42:04. Problem List/Past Medical History Ongoing Anticoagulated Diabetes [...] Oral, BID daratumumab, IV, q6wk Fish Oil 1000 mg oral capsule, 1000 mg= 1 cap(s), Oral, BID Lipitor, Oral, Daily Oracit oral solution, See Instructions, 6 refills Relion insulin, 10 unit(s), SubCutaneous, Bedtime sodium bicarbonate 650 mg Tab Vitamin B-12, 1000 mcg Vitamin D3 5000 intl units oral tablet, 5000 International_Unit= 1 tab(s), Oral, Daily Xarelto, Oral Allergies lenalidomide (Unknown) oxybutynin (Unknown, Rash) pr (more content not included)... Normal [facility] Comment on above: Result Comment: Elec tronically Signed By: Tyree PRAK MD\.br\Date and Time Signed: 01/09/24 09:42 EST\.br\Electronically Co-Signed By: Tanya Schwartz\.br\Date and Time Co-Signed: 01/09/24 09:41 EST RAD - MISCon 01-06-2024 RAD - MISC [id number] D1#1.00TIFF Normal [facility] Automated epithelial cells c ount in urine sediment (number/area)on 12-27-2023 Epithelial cells Auto (Urine sed) [#/Area] RARE #/LPF NONE/RARE [facility] Automated leukocytes count i n urine sediment (number/area)on 12-27-2023 WBC Auto (Urine sed) [#/Area] 0-2 #/HPF 0-2 [facility] Automated urine specific gra vity by refractometryon 12-27-2023 Specific gravity Refractometry automated (U) [Rel density] 1.010 1.005-1.025 [facility] Bilirubin Auto test strip (U ) [Mass/Vol]on 12-27-2023 Bilirubin (U) [Mass/Vol] Negative NEGATIVE [facility] Casts typing in urine sedime nt by light microscopyon 12-27-2023 Casts LM Nom (Urine sed) NONE SEEN #/LPF NONE S EEN [facility] Color Auto (U)on 12-27-2023 Color (U) LT. YELLOW YELLOW [facility] Erythrocyte distribution wid th Auto (RBC) [Ratio]on 12-27-2023 Erythrocyte distribution width (RBC) [Ratio] 12.5 % 11.0-15.0 [facility] Estimated glomerular filtrat ion rate (GFR) non- Americanon 12-27-2023 GFR/1.73 sq M.predicted among non-blacks MDRD (S/P/Bld) [Vol rate/Area] 18 mL/min/{1.73_m2} >=60 [facility] Hematocrit Auto (Bld) [Volum e fraction]on 12-27-2023 Hematocrit (Bld) [Volume fraction] 40.2 % 36.0-48.0 [facility] Hemoglobin [Mass/volume] in Bloodon 12-27-2023 Hemoglobin (Bld) [Mass/Vol] 12.9 g/dL 12.0-16.0 [facility] Ketones Auto test strip (U) [Mass/Vol]on 12-27-2023 Ketones (U) [Mass/Vol] Negative NEGATIVE [facility] Laboratory - Chemistry and C hemistry - challengeon 12-27-2023 Albumin [Mass/Vol] 3.2 g/dL 3.4-5.0 [facility] Calcium [Mass/Vol] 8.4 mg/dL 8.5-10.1 [facility] Chloride [Moles/Vol] 108 mmol/L 98-107 [facility] CO2 [Moles/Vol] 24.3 mmol/L 21.0-32.0 [facility] Creatinine [Mass/Vol] 2.57 mg/dL 0.55-1.02 [facility] GFR/1.73 sq M.predicted MDRD (S/P/Bld) [Vol rate/Area] 22 mL/min/{1.73_m2} >=60 [facility] Glucose [Mass/Vol] 88 mg/dL 74-106 [facility] Magnesium [Mass/Vol] 2.1 mg/dL 1.8-2.4 [facility] Potassium [Moles/Vol] 4.4 mmol/L 3.5-5.1 [facility] Sodium [Moles/Vol] 141 mmol/L 136-145 [facility] Urate [Mass/Vol] 5.9 mg/dL 2.6-6.0 [facility] Urea nitrogen [Mass/Vol] 32.0 mg/dL 7.0-18.0 [facility] Urea nitrogen/Creatinine [Mass ratio] 12.5 mg/mg [facility] Laboratory - Urinalysison Protein (U) [Mass/Vol] 27.1 mg/dL <=11.9 [facility] Leukocytes [#/volume] correc dominick for nucleated erythrocytes in Blood by Automated counon 12-27-2023 WBC corrected for nucl RBC Auto (Bld) [#/Vol] 8.3 10 3/uL 4.0-11.0 [facility] MCH Auto (RBC) [Entitic mass ]on 12-27-2023 MCH (RBC) [Entitic mass] 31.5 pg 26.7-34.0 [facility] MCHC Auto (RBC) [Mass/Vol]on 12-27-2023 MCHC (RBC) [Mass/Vol] 32.1 g/dL 29.9-35.2 [facility] MCV Auto (RBC) [Entitic vol] on 12-27-2023 MCV (RBC) [Entitic vol] 98.3 fL 81.0-99.0 [facility] Mucus LM Ql (Urine sed)on Mucus Ql (Urine sed) NONE SEEN NONE SEEN [facility] No Panel Informationon 12-27 25-Hydroxy Vitamin D Total 42.6 ng/mL [facility] Comment on above: <20 ng/mL Vit D defi cient20-<30 ng/mL Vit D -955 ng/mL Vit D sufficient>100 ng/mL Potential Toxicity Parathyroid Hormone (Intact) 78 pg/mL 15-65 [facility] Comment on above: Performed at: - [facility] [id number] [place], [place] [id number] Director: Elpidio Delgado PhD, Phone: [phone] Phosphorus Level 4.2 mg/dL 2.6-4.7 [facility] Urine Random Creatinine 59.98 mg/dL 20.00-300.0 0 [facility] Platelet mean volume Auto (B ld) [Entitic vol]on 12-27-2023 Platelet mean volume (Bld) [Entitic vol] 11.3 fL 9.5-13.5 [facility] Platelets Auto (Bld) [#/Vol] on 12-27-2023 Platelets (Bld) [#/Vol] 195 10 3/uL 150-450 [facility] Protein Auto test strip (U) [Mass/Vol]on 12-27-2023 Protein (U) [Mass/Vol] Negative NEG/TRACE [facility] RBC Auto (Bld) [#/Vol]on RBC (Bld) [#/Vol] 4.09 10 6/uL 4.20-5.40 [facility] Serum or plasma anion gap de terminationon 12-27-2023 Anion gap [Moles/Vol] 13.1 mmol/L [facility] Specific gravity Auto test s trip (U) [Rel density]on 12-27-2023 Specific gravity (U) [Rel density] CLEAR CLEAR [facility] Urine bacteria detection by automated methodon 12-27-2023 Bacteria Auto Ql (U) TRACE #/HPF NONE SEEN [facility] Urine glucose measurement by test strip (mass/volume)on 12-27-2023 Glucose Test strip (U) [Mass/Vol] Negative NEGATIVE [facility] Urine hemoglobin detection b y automated test stripon 12-27-2023 Hemoglobin Auto test strip Ql (U) Negative NEGATIVE [facility] Urine nitrite detection by a utomated test stripon 12-27-2023 Nitrite Auto test strip Ql (U) Negative NEGATIVE [facility] Urine protein/creatinine rat ioon 12-27-2023 Protein/Creatinine (U) [Ratio] 0.45 [facility] Urine sediment crystal ident ification by light microscopyon 12-27-2023 Crystals LM Nom (Urine sed) None Seen #/HPF None Seen [facility] Urine sediment leukocyte cou nt by microscopy (number/high power field)on 12-27-2023 WBC LM.HPF (Urine sed) [#/Area] 0-2 #/HPF NONE SEEN [facility] Urobilinogen Auto test strip (U) [Mass/Vol]on 12-27-2023 Urobilinogen Qn (U) 0.2 {Marley'U}/dL 0.2-1.0 [facility] pH Auto test strip (U)on pH (U) 6.5 [pH] 5.0-9.0 [facility] Heart TransthoracicOrdere d By: Russel Tolbert on 11-03-2023 Aortic Valve Area by Continuity of Peak Velocity 1.84 [facility] Work Phone: [phone] Aortic Valve Area by Continuity of VTI 1.69 [facility] Work Phone: [phone] AV mn grad 4.0 [facility] Work Phone: [phone] AV pk grad 8.8 [facility] Work Phone: [phone] AV pk nisha 1.48 [facility] Work Phone: [phone] LV A4C EF 65.5 [facility] Work Phone: [phone] LVIDd 4.10 [facility] Work Phone: [phone] LVOT diam 2.00 [facility] Work Phone: [phone] MV avg E/e' ratio 17.40 [facility] Work Phone: [phone] MV E/A ratio 1.11 [facility] Work Phone: [phone] RVSP 25.3 [facility] Work Phone: [phone] [facility] Work Phone: [phone] [facility] [address], [address], [place] [address] TRANSTHORACIC ECHOCARDIOGRAM REPORT Patient Name: HAILEE TRIVEDI Reading Physician: [id number] Russel Tolbert MD Study Date: 11/02/2023 Ordering Provider: [id number] ELICIA RHODES MRN/PID: [id number] Fellow: Nurse: Date of /Age: 6 1940 / 83 years Disposition Clerk: Allyson Dobson RDCS, RVT Gender: F Additional Staff: Height: 167.64 cm Admit Date: Weight: 88.00 kg Admission Status: BSA: 1.97 m2 Department Location: [facility] Blood Pressure: 140 /74 mmHg Study Type: TRANSTHORACIC ECHO (TTE) COMPLETE Diagnosis/ICD: Nonrheumatic aortic (valve) insufficiency-I35.1 ; 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 ÁNGELO Russel Tolbert MD - 11/03/[address], Suite [facility], [place] [address] TRANSTHORACIC ECHOCARDIOGRAM REPORT Patient Name: HAILEE TRIVEDI Reading Physician: [id number] Russel Tolbert MD Study Date: 11/02/2023 Ordering Provider: [id number] ELICIA RHODES MRN/PID: [id number] Fellow: Nurse: Date of /Age: 6 1940 / 83 years Disposition Clerk: Allyson Dobson RDCS Antwan Gender: F Additional Staff: Height: 167.64 cm Admit Date: Weight: 88.00 kg Admission Status: BSA: 1.97 m2 Department Location: [facility] Blood Pressure: 140 /74 mmHg Study Type: TRANSTHORACIC ECHO (TTE) COMPLETE Diagnosis/ICD: Nonrheumatic aortic (valve) insufficiency-I35.1 ; 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; Pulmonary hypertension, unspecified-I27.20 Indication: Atrial Fibrillation, HTN, Hyperlipidemia, 2/6 Diastolic Murmur, CKD-Stage III-IV, Multiple Myeloma-in Remission, Cerebellar Infarct, Obesity CPT Codes: Echo Complete w Full Doppler-[id number] Study Detail: The following Echo studies were [...] mmHg PIEDV: 2.22 m/s PADP: 22.7 mmHg [id number] Russel Tolbert MD Electronically signed on 11/03/2023 at 11:22:05 AM Final [facility] Work Phone: TRANSTHORACIC ECHO (TTE) [facility] TRANSTHORACIC ECHO (TTE) COMPLETE [address], [address] [facility], [place] [address] TRANSTHORACIC ECHOCARDIOGRAM REPORT Patient Name: HAILEE TRIVEDI Reading Physician: [id number] Russel Tolbert MD Study Date: 11/02/2023 Ordering Provider: [id number] ELICIA RHODES MRN/PID: [id number] Fellow: Nurse: Date of /Age: 6 1940 / 83 years Disposition Clerk: Allyson Dobson RDCS, RVT Gender: F Additional Staff: Height: 167.64 cm Admit Date: Weight: 88.00 kg Admission Status: BSA: 1.97 m2 Department Location: [facility] Blood Pressure: 140 /74 mmHg Study Type: TRANSTHORACIC ECHO (TTE) COMPLETE Diagnosis/ICD: Nonrheumatic aortic (valve) insufficiency-I35.1 ; 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; Pulmonary hypertension, unspecified-I27.20 Indication: Atrial Fibrillation, HTN, Hyperlipidemia, 2/6 Diastolic Murmur, CKD-Stage III-IV, Multiple Myeloma-in Remission, Cerebellar Infarct, Obesity CPT Codes: Echo Complete w Full Doppler-[id number] Study Detail: The following Echo studies were [...] mmHg PIEDV: 2.22 m/s PADP: 22.7 mmHg [id number] Russel Tolbert MD Electronically signed on 11/03/2023 at 11:22:05 AM Final Normal [facility] Alanine aminotransferase [En zymatic activity/volume] in Serum or PlasmaOrdered By: Claire Choi on 10-18-2023 ALT [Catalytic activity/Vol] 9 U/L Normal 7-52 [facility] Comment on above: Performed By: #### C UU #### [facility] [address] Albumin [Mass/volume] in Ser um or PlasmaOrdered By: Claire Choi on 10-18-2023 Albumin [Mass/Vol] 3.6 g/dL Normal 2.9-4.4 [facility] Comment on above: Performed By: #### C BC, CMP wRFX A1C, EBS A1C #### [facility] [address] [place] [address] [place] #### SPE, KAPPA #### [facility] , Albumin [Mass/volume] in Ser um or Plasma by Bromocresol green (BCG) dye binding methoOrdered By: Claire Choi on 10-18-2023 Albumin BCG dye [Mass/Vol] 3.8 g/dL 3.5-5.7 [facility] Alkaline phosphatase [Enzyma tic activity/volume] in Serum or PlasmaOrdered By: Claire Choi on 10-18-2023 ALP [Catalytic activity/Vol] 94 U/L Normal 34-104 [facility] Comment on above: Performed By: #### C UU #### [address] Aspartate aminotransferase [ Enzymatic activity/volume] in Serum or PlasmaOrdered By: Claire Choi on 10-18-2023 AST [Catalytic activity/Vol] 14 U/L Normal 13-39 [facility] Comment on above: Performed By: #### C UU #### [address] Automated basophil %Ordered By: Claire Choi on 10-18-2023 Basophils/100 WBC (Bld) 1.2 % Normal . [facility] Comment on above: Performed By: #### C UU #### [address] Automated basophil countOrde red By: Claire Choi on 10-18-2023 Basophils (Bld) [#/Vol] 0.1 10*3/uL Normal 0.0-0.2 [facility] Comment on above: Result Comment: PERF ORMED BY: [place] [address] PATHOLOGIST PEANUT BLANCHER LUIS DEE M.D. Performed By: #### C UU #### [address] Automated blood monocyte cou ntOrdered By: Claire Choi on 10-18-2023 Monocytes (Bld) [#/Vol] 0.6 10*3/uL Normal 0.0-0.8 [facility] Comment on above: Performed By: #### C UU #### [address] Automated eosinophil %Ordere d By: Claire Choi on 10-18-2023 Eosinophils/100 WBC (Bld) 1.1 % Normal . [facility] Comment on above: Performed By: #### C UU #### [address] Automated eosinophil countOr dered By: Claire Choi on 10-18-2023 Eosinophils (Bld) [#/Vol] 0.1 10*3/uL Normal 0.0-0.45 [facility] Comment on above: Performed By: #### C UU #### [address] Automated monocyte %Ordered By: Claire Choi on 10-18-2023 Monocytes/100 WBC (Bld) 7.6 % Normal . [facility] Comment on above: Performed By: #### C UU #### [address] Automated neutrophil %Ordere d By: Claire Choi on 10-18-2023 Neutrophils/100 WBC (Bld) 59.9 % Normal . [facility] Comment on above: Performed By: #### C UU #### [address] Bilirubin.total [Mass/volume ] in Serum or PlasmaOrdered By: Claire Choi on 10-18-2023 Bilirubin [Mass/Vol] 0.4 mg/dL Normal 0.3-1.0 [facility] Comment on above: Performed By: #### C UU #### [address] Calcium [Mass/volume] in Ser um or PlasmaOrdered By: Claire Choi on 10-18-2023 Calcium [Mass/Vol] 8.7 mg/dL Normal 8.6-10.3 [facility] Comment on above: Performed By: #### C UU #### [address] Carbon dioxide, total [Moles /volume] in Serum or PlasmaOrdered By: Claire Choi on 10-18-2023 CO2 [Moles/Vol] 24.2 mmol/L Normal 21.0-31.0 [facility] Comment on above: Performed By: #### C UU #### [address] Chloride [Moles/volume] in S amanda or PlasmaOrdered By: Claire Choi on 10-18-2023 Chloride [Moles/Vol] 108 mmol/L High 98-107 [facility] Comment on above: Performed By: #### C UU #### [address] Complete Blood Count Auto Di ffon 10-18-2023 Mean Corpuscular HGB Conc 32.8 g/dL Normal 32.0-35.0 [facility] Comment on above: Performed By: #### C UU #### [address] NRBC% 0.1 /100{WBC} Normal 0-0.5 [facility] Comment on above: Performed By: #### C UU #### [address] Comprehensive Metabolic Pane natalia 10-18-2023 Albumin [Mass/Vol] 3.8 g/dL Normal 3.5-5.7 [facility] Comment on above: Performed By: #### C UU #### [address] Creatinine Clr Calc Pharmacy 20.65 Normal [facility] Comment on above: Result Comment: PERF ORMED BY: [place] [address] PATHOLOGIST PEANUT BLANCHER LUIS DEE M.D. Performed By: #### C UU #### [address] GFR/1.73 sq M.predicted MDRD (S/P/Bld) [Vol rate/Area] 20.198 mL/min/{1.73_m2} Normal [facility] Comment on above: Performed By: #### C UU #### [address] Creatinine [Mass/volume] in Serum or PlasmaOrdered By: Claire Choi on 10-18-2023 Creatinine [Mass/Vol] 2.36 mg/dL High 0.60-1.20 [facility] Comment on above: Performed By: #### C UU #### [address] Erythrocyte distribution wid th [Ratio] by Automated countOrdered By: Claire Choi on 10-18-2023 Erythrocyte distribution width (RBC) [Ratio] 14.6 % Normal 11.9-15.3 [facility] Comment on above: Performed By: #### C UU #### [address] Erythrocytes [#/volume] in B lood by Automated countOrdered By: Claire Choi on 10-18-2023 RBC (Bld) [#/Vol] 3.72 10*6/uL Normal 3.60-5.00 [facility] Comment on above: Performed By: #### C UU #### [address] Free K+L LT Chains, Qn, Son 10-18-2023 Free [place] Light Chains, S 39.7 mg/L High 3.3-19.4 [facility] Comment on above: Performed By: #### C BC, CMP wRFX A1C, EBS A1C #### [place] [address] [place] #### SPE, KAPPA #### [facility] , Free [place]ambda Light Chains, S 23.4 mg/L Normal 5.7-26.3 [facility] Comment on above: Performed By: #### C BC, CMP wRFX A1C, EBS A1C #### [place] [address] [place] #### SPE, KAPPA #### [facility] , [place]/Lambda Ratio, S 1.70 High 0.26-1.65 [facility] Comment on above: Result Comment: Perf ormed at: CB - [facility] [address] [id number] Oyster Unloader: Elpidio Delgado PhD, Phone: [phone] PERFORMED BY: [place] [address] PATHOLOGIST PEANUT BLANCHER LUIS DEE M.D. Performed By: #### C BC, CMP wRFX A1C, EBS A1C #### [address] #### SPE, KAPPA #### [facility] , Glucose [Mass/volume] in Ser um or PlasmaOrdered By: Claire Choi on 10-18-2023 Glucose [Mass/Vol] 176 mg/dL High 70-100 [facility] Comment on above: ADA recommended refe rence rangeRandom Glucose Reference Range is dependent on time and content of last meal. Glucose of more than 200 mg/dL in a nonstressed, ambulatory subject supports the diagnosis of Diabetes Mellitus. Result Comment: [place] om Glucose Reference Range is dependent on time and content of last meal. Glucose of more than 200 mg/dL in a nonstressed, ambulatory subject supports the diagnosis of Diabetes Mellitus. ADA recommended reference range Performed By: #### C UU #### [address] Hematocrit [Volume Fraction] of Blood by Automated countOrdered By: Claire Choi on 10-18-2023 Hematocrit (Bld) [Volume fraction] 36.0 % Normal 34.0-46.4 [facility] Comment on above: Performed By: #### C UU #### [address] Hemoglobin [Mass/volume] in BloodOrdered By: Claire Choi on 10-18-2023 Hemoglobin (Bld) [Mass/Vol] 11.8 g/dL Normal 11.8-15.4 [facility] Comment on above: Performed By: #### C UU #### [address] IgA [Mass/volume] in Serum o r PlasmaOrdered By: Claire Choi on 10-18-2023 IgA [Mass/Vol] 162 mg/dL 64-422 [facility] IgG [Mass/volume] in Serum o r PlasmaOrdered By: Claire hCoi on 10-18-2023 IgG [Mass/Vol] 708 mg/dL [phone] [facility] IgM [Mass/volume] in Serum o r PlasmaOrdered By: Claire Choi on 10-18-2023 IgM [Mass/Vol] 117 mg/dL 26-217 [facility] Comment on above: Performed at: - [facility] [address] [id number] Director: Elpidio Delgado PhD, Phone: [phone] Immunofixation,Serumon 10-18 Immunofixation, Serum Normal . [facility] Comment on above: Result Comment: No m onoclonality detected. Performed By: #### C BC, CMP wRFX A1C, EBS A1C #### [facility] [address] [place] [address] [place] #### SPE, KAPPA #### [facility] , Immunoglobulin A, Serum 162 mg/dL Normal 64-422 [facility] Comment on above: Performed By: #### C BC, CMP wRFX A1C, EBS A1C #### [facility] [address] [place], [place] [id number] [place] #### SPE, KAPPA #### [facility] , Immunoglobulin G 708 mg/dL Normal [phone] [facility] Comment on above: Performed By: #### C BC, CMP wRFX A1C, EBS A1C #### [facility] [address] [id number] [place] #### SPE, KAPPA #### [facility] , Immunoglobulin M, Serum 117 mg/dL Normal 26-217 [facility] Comment on above: Result Comment: Perf ormed at: [employer] [facility] [place] [address] [place], [place] [id number] [employer]: Elpidio Delgado PhD, Phone: [phone] Performed By: #### C BC, CMP wRFX A1C, EBS A1C #### [facility] [address] #### SPE, KAPPA #### [facility] , Immunoglobulin light chains. kappa.free [Mass/volume] in SerumOrdered By: Claire Choi on 10-18-2023 Immunoglobulin light chains.kappa.free (S) [Mass/Vol] 39.7 mg/L 3.3-19.4 [facility] Immunoglobulin light chains. kappa.free/Immunoglobulin light chains.lambda.free [MassOrdered By: Claire Choi on 10-18-2023 Immunoglobulin light chains.kappa.free/Immunog lobulin light chains.lambda.free (S) [Mass ratio] 1.70 0.26-1.65 [facility] Comment on above: Performed at: [address] Director: Elpidio Delgado PhD, Phone: [phone] Immunoglobulin light chains. lambda.free [Mass/volume] in Serum or PlasmaOrdered By: Claire Choi on 10-18-2023 Immunoglobulin light chains.lambda.free [Mass/Vol] 23.4 mg/L 5.7-26.3 [facility] Leukocytes [#/volume] correc dominick for nucleated erythrocytes in Blood by Automated counOrdered By: Claire Choi on 10-18-2023 WBC corrected for nucl RBC Auto (Bld) [#/Vol] 8.2 10*3/uL 3.8-11.6 [facility] Leukocytes [#/volume] in Blo od by Automated countOrdered By: Claire Choi on 10-18-2023 WBC (Bld) [#/Vol] 8.2 10*3/uL Normal 3.8-11.6 [facility] Comment on above: Performed By: #### C UU #### [facility] [address] [place] [address] Lymphocytes [#/volume] in Bl ood by Automated countOrdered By: Claire Choi on 10-18-2023 Lymphocytes (Bld) [#/Vol] 2.5 10*3/uL Normal 1.00-4.8 [facility] Comment on above: Performed By: #### C UU #### [address] Lymphocytes/100 leukocytes i n Blood by Automated countOrdered By: Claire Choi on 10-18-2023 Lymphocytes/100 WBC (Bld) 30.2 % Normal . [facility] Comment on above: Performed By: #### C UU #### [address] MCH [Entitic mass] by Automa dominick countOrdered By: Claire Choi on 10-18-2023 MCH (RBC) [Entitic mass] 31.8 pg Normal 24.7-34.3 [facility] Comment on above: Performed By: #### C UU #### [address] MCHC Auto (RBC) [Mass/Vol]Or dered By: Claire Choi on 10-18-2023 MCHC (RBC) [Mass/Vol] 32.8 g/dL 32.0-35.0 [facility] MCV [Entitic volume] by Auto mated countOrdered By: Claire Choi on 10-18-2023 MCV (RBC) [Entitic vol] 96.9 fL Normal 80-100 [facility] Comment on above: Performed By: #### C UU #### [address] Neutrophils [#/volume] in Bl ood by Automated countOrdered By: Claire Choi on 10-18-2023 Neutrophils (Bld) [#/Vol] 4.9 10*3/uL Normal 1.8-7.7 [facility] Comment on above: Performed By: #### C UU #### [address] No Panel InformationOrdered By: Claire Choi on 10-18-2023 Estimated GFR (CKD-EPI) 20.198 mL/Min [facility] Creatinine Clearance (Chem 20.65 [facility] Protein Electrophoresis M-Krystian Not observed g/dL Not Observed [facility] Protein Electrophoresis Note See comment . [facility] Comment on above: Protein electrophore sis scan will follow via computer,mail, or petrophysicist delivery. Serum Immunofixation See comment . [facility] Comment on above: No monoclonality det ected. Nucleated erythrocytes [Pres ence] in Blood by Automated countOrdered By: Claire Choi on 10-18-2023 Nucleated RBC Auto Ql (Bld) 0.1 /100{WBC} 0-0.5 [facility] Platelet mean volume [Entiti c volume] in Blood by Automated countOrdered By: Claire Choi on 10-18-2023 Platelet mean volume (Bld) [Entitic vol] 9.8 fL Normal 6.3-10.7 [facility] Comment on above: Performed By: #### C UU #### [address] Platelets [#/volume] in Bloo d by Automated countOrdered By: Claire Choi on 10-18-2023 Platelets (Bld) [#/Vol] 199 10*3/uL Normal 150-450 [facility] Comment on above: Performed By: #### C UU #### [address] Potassium [Moles/volume] in Serum or PlasmaOrdered By: Claire Choi on 10-18-2023 Potassium [Moles/Vol] 4.9 mmol/L Normal 3.5-5.1 [facility] Comment on above: Performed By: #### C UU #### [address] Protein Electrophoresis, Ser umon 10-18-2023 [id number]-[id number] 0.2 g/dL Normal 0.0-0.4 [facility] Comment on above: Performed By: #### C BC, CMP wRFX A1C, EBS A1C #### [facility] [address] [place] [address] [place] #### SPE, KAPPA #### [facility] , Xqbnf-9-Nnpowdbq 0.9 g/dL Normal 0.4-1.0 [facility] Comment on above: Performed By: #### C BC, CMP wRFX A1C, EBS A1C #### [place] [address] [place] #### SPE, KAPPA #### [facility] , Beta Globulin 0.9 g/dL Normal 0.7-1.3 [facility] Comment on above: Performed By: #### C BC, CMP wRFX A1C, EBS A1C #### [place] [address] [place] #### SPE, KAPPA #### [facility] , Gamma Globulin 0.8 g/dL Normal 0.4-1.8 [facility] Comment on above: Performed By: #### C BC, CMP wRFX A1C, EBS A1C #### [place] [address] [place] #### SPE, KAPPA #### [facility] , M-Krystian Not Observed Normal Not Observed [facility] Comment on above: Performed By: #### C BC, CMP wRFX A1C, EBS A1C #### [place] [address] [place] #### SPE, KAPPA #### [facility] , SPE-Note Normal . [facility] Comment on above: Result Comment: Prot ein electrophoresis scan will follow via computer, mail, or petrophysicist delivery. Performed By: #### C BC, CMP wRFX A1C, EBS A1C #### [facility] [address] [place] [address] [place] #### SPE, KAPPA #### [facility] , Protein [Mass/volume] in Ser um or PlasmaOrdered By: Claire Choi on 10-18-2023 Protein [Mass/Vol] 6.3 g/dL Low 6.4-8.9 [facility] Comment on above: Performed By: #### C UU #### [address] Protein [Mass/Vol] 6.4 g/dL Normal 6.0-8.5 [facility] Comment on above: Performed By: #### C BC, CMP wRFX A1C, EBS A1C #### [place] [address] [place] #### SPE, KAPPA #### [facility] , Serum globulin measurement ( mass/volume)Ordered By: Claire Choi on 10-18-2023 Globulin (S) [Mass/Vol] 2.8 g/dL Normal 2.2-3.9 [facility] Comment on above: Performed By: #### C BC, CMP wRFX A1C, EBS A1C #### [address] #### SPE, KAPPA #### [facility] , Serum globulin measurement b y calculation (mass/volume)Ordered By: Claire Choi on 10-18-2023 Globulin (S) [Mass/Vol] 2.5 g/dL Normal [facility] Comment on above: Performed By: #### C UU #### [address] Serum or plasma albumin/glob ulin mass ratioOrdered By: Claire Choi on 10-18-2023 Albumin/Globulin [Mass ratio] 1.5 {ratio} Normal [facility] Comment on above: Performed By: #### C UU #### [address] Albumin/Globulin [Mass ratio] 1.3 {ratio} Normal 0.7-1.7 [facility] Comment on above: Performed By: #### C BC, CMP wRFX A1C, EBS A1C #### [place] [address] [place] #### SPE, KAPPA #### [facility] , Serum or plasma alpha 1 glob ulin measurement by electrophoresis (mass/volume)Ordered By: Claire Choi on 10-18-2023 Alpha 1 globulin Elph [Mass/Vol] 0.2 g/dL 0.0-0.4 [facility] Serum or plasma alpha 2 glob ulin measurement by electrophoresis (mass/volume)Ordered By: Claire Choi on 10-18-2023 Alpha 2 globulin Elph [Mass/Vol] 0.9 g/dL 0.4-1.0 [facility] Serum or plasma anion gap de terminationOrdered By: Claire Choi on 10-18-2023 Anion gap [Moles/Vol] 10.7 mmol/L Normal 6.0-15.0 [facility] Comment on above: Performed By: #### C UU #### [facility] [address] [place] [address] Serum or plasma beta globuli n measurement by electrophoresis (mass/volume)Ordered By: Claire Choi on 10-18-2023 Beta globulin Elph [Mass/Vol] 0.9 g/dL 0.7-1.3 [facility] Serum or plasma gamma globul in measurement by electrophoresis (mass/volume)Ordered By: Claire Choi on 10-18-2023 Gamma globulin Elph [Mass/Vol] 0.8 g/dL 0.4-1.8 [facility] Sodium [Moles/volume] in Ser um or PlasmaOrdered By: Claire Choi on 10-18-2023 Sodium [Moles/Vol] 138 mmol/L Normal 136-145 [facility] Comment on above: Performed By: #### C UU #### [facility] [address] Urea nitrogen [Mass/volume] in Serum or PlasmaOrdered By: Claire Choi on 10-18-2023 Urea nitrogen [Mass/Vol] 35 mg/dL High 7-25 [facility] Comment on above: Performed By: #### C UU #### [facility] [address] [place] [address] ECG 12 [place] 10-04-2023 Normal sinus rhythm [facility] Work Phone: Automated erythrocytes count in urine sediment (number/area)Ordered By: Claire Choi on 07-19-2023 RBC Auto (Urine sed) [#/Area] 0-1 [HPF] 0-4 [facility] Automated leukocytes count i n urine sediment (number/area)Ordered By: Claire Choi on 07-19-2023 WBC Auto (Urine sed) [#/Area] 0-1 [HPF] 0-4 [facility] Automated urine color determ inationOrdered By: Claire Choi on 07-19-2023 Color (U) Yellow Normal Yellow [facility] Comment on above: Order Comment: Name Collection Type:: Voided Performed By: #### A DDONUAPLUS #### [address] Bilirubin Test strip Ql (U)O rdered By: Claire Choi on 07-19-2023 Bilirubin Ql (U) Negative Negative [facility] Dipstick and Microscopicon 0 07-19-2023 Appearance (U) Clear Normal Clear [facility] Comment on above: Order Comment: Name Collection Type:: Voided Performed By: #### A DDONUAPLUS #### [place] [address] [place] Bacteria,Urine None Seen Normal None Seen [facility] Comment on above: Order Comment: Name Collection Type:: Voided Performed By: #### A DDONUAPLUS #### [facility] [address] [id number] [place] Bilirubin,Urine Negative Normal Negative [facility] Comment on above: Order Comment: Name Collection Type:: Voided Performed By: #### A DDONUAPLUS #### [facility] [address] [id number] [place] Glucose Ql (U) Normal Normal Normal [facility] Comment on above: Order Comment: Name Collection Type:: Voided Performed By: #### A DDONUAPLUS #### [facility] [address] [id number] [place] Hyaline Casts,Urine None Seen Normal 0-8 [facility] Comment on above: Order Comment: Name Collection Type:: Voided Result Comment: PERF ORMED BY: [place] [address] PATHOLOGIST PEANUT BLANCHER LUIS DEE M.D. Performed By: #### A DDONUAPLUS #### [address] Ketones Ql (U) Negative Normal Negative [facility] Comment on above: Order Comment: Name Collection Type:: Voided Performed By: #### A DDONUAPLUS #### [address] Leukocyte esterase Test strip Ql (U) Negative Normal Negative [facility] Comment on above: Order Comment: Name Collection Type:: Voided Performed By: #### A DDONUAPLUS #### [address] Nitrite,Urine Negative Normal Negative [facility] Comment on above: Order Comment: Name Collection Type:: Voided Performed By: #### A DDONUAPLUS #### [place] [address] [place] Occult Blood,Urine Negative Normal Negative [facility] Comment on above: Order Comment: Name Collection Type:: Voided Result Comment: PERF ORMED BY: [place] [address] PATHOLOGIST PEANUT BLANCHER LUIS DEE M.D. Performed By: #### A DDONUAPLUS #### [address] RBC LM.HPF (Urine sed) [#/Area] 0 /[HPF] Normal 0-4 [facility] Comment on above: Order Comment: Name Collection Type:: Voided Performed By: #### A DDONUAPLUS #### [address] Specificy [place],Urine 1.018 Normal 1.001-1.030 [facility] Comment on above: Order Comment: Name Collection Type:: Voided Performed By: #### A DDONUAPLUS #### [facility] [address] Squamous Epithelial Cell,Urine 0-1 Normal 0-2 [facility] Comment on above: Order Comment: Name Collection Type:: Voided Performed By: #### A DDONUAPLUS #### [address] Urobilinogen,Urine Normal Normal Normal [facility] Comment on above: Order Comment: Name Collection Type:: Voided Performed By: #### A DDONUAPLUS #### [address] WBC LM.HPF (Urine sed) [#/Area] 0 /[HPF] Normal 0-4 [facility] Comment on above: Order Comment: Name Collection Type:: Voided Performed By: #### A DDONUAPLUS #### [address] Ketones Auto test strip (U) [Mass/Vol]Ordered By: Claire Choi on 07-19-2023 Ketones (U) [Mass/Vol] Negative Negative [facility] - UrinalysisOrder ed By: Claire Choi on 07-19-2023 Hyaline casts LM Ql (Urine sed) None seen [LPF] 0-8 [facility] Nitrite Test strip Ql (U)Ord ered By: Claire Choi on 07-19-2023 Nitrite Ql (U) Negative Negative [facility] Specific gravity Auto test s trip (U) [Rel density]Ordered By: Claire Choi on 07-19-2023 Specific gravity (U) [Rel density] 1.018 1.001-1.030 [facility] Squamous epithelial cells de tection in urine sediment by light microscopyOrdered By: Claire Choi on 07-19-2023 Epithelial cells.squamous LM Ql (Urine sed) 0-1 [HPF] 0-2 [facility] Urine bacteria detection by automated methodOrdered By: Claire Choi on 07-19-2023 Bacteria Auto Ql (U) None seen None Seen [facility] Urine clarity by refractomet ry automatedOrdered By: Claire Choi on 07-19-2023 Clarity Refractometry automated (U) Clear Clear [facility] Urine glucose measurement by automated test strip (mass/volume)Ordered By: Claire Choi on 07-19-2023 Glucose Auto test strip (U) [Mass/Vol] Normal mg/dL Normal [facility] Urine hemoglobin detection b y automated test stripOrdered By: Claire Choi on 07-19-2023 Hemoglobin Auto test strip Ql (U) Negative Negative [facility] Urine leukocyte esterase det ection by automated test stripOrdered By: Claire Choi on 07-19-2023 Leukocyte esterase Auto test strip Ql (U) Negative Negative [facility] Urine pH measurement by auto mated test stripOrdered By: Claire Choi on 07-19-2023 pH (U) 6.0 [pH] Normal 5.0-9.0 [facility] Comment on above: Order Comment: Name Collection Type:: Voided Performed By: #### A DDONUAPLUS #### [address] Urine protein measurement by automated test strip (mass/volume)Ordered By: Claire Choi on 07-19-2023 Protein (U) [Mass/Vol] 100 mg/dL High Negative [facility] Comment on above: Order Comment: Name Collection Type:: Voided Performed By: #### A DDONUAPLUS #### [facility] [address] [place] [address] Urobilinogen Auto test strip (U) [Mass/Vol]Ordered By: Claire Choi on 07-19-2023 Urobilinogen (U) [Mass/Vol] Normal mg/dL Normal [facility] Alanine aminotransferase [En zymatic activity/volume] in Serum or PlasmaOrdered By: Misti Connolly on 07-12-2023 ALT [Catalytic activity/Vol] 12 U/L Normal [facility] Comment on above: Performed By: #### C BC, CMP wRFX A1C, EBS A1C #### [facility] [address] [place] [address] [place] #### SPE, KAPPA #### [facility] , Albumin [Mass/volume] in Ser um or PlasmaOrdered By: Misti Connolly on 07-12-2023 Albumin [Mass/Vol] 3.5 g/dL Normal 2.9-4.4 [facility] Comment on above: Performed By: #### C BC, CMP wRFX A1C, EBS A1C #### [facility] [address] [place] [address] [place] #### SPE, KAPPA #### [facility] , Albumin [Mass/volume] in Ser um or Plasma by Bromocresol green (BCG) dye binding methoOrdered By: Misti Connolly on 07-12-2023 Albumin BCG dye [Mass/Vol] 3.6 g/dL 3.5-5.7 [facility] Alkaline phosphatase [Enzyma tic activity/volume] in Serum or PlasmaOrdered By: Misti Connolly on 07-12-2023 ALP [Catalytic activity/Vol] 83 U/L Normal 34-104 [facility] Comment on above: Performed By: #### C BC, CMP wRFX A1C, EBS A1C #### [place] [address] [place] #### SPE, KAPPA #### [facility] , Aspartate aminotransferase [ Enzymatic activity/volume] in Serum or PlasmaOrdered By: Misti Connolly on 07-12-2023 AST [Catalytic activity/Vol] 14 U/L Normal 13-39 [facility] Comment on above: Performed By: #### C BC, CMP wRFX A1C, EBS A1C #### [facility] [address] [place] [address] [place] #### SPE, KAPPA #### [facility] , Automated basophil %Ordered By: Misti Connolly on 07-12-2023 Basophils/100 WBC (Bld) 0.4 % Normal . [facility] Comment on above: Performed By: #### C BC, CMP wRFX A1C, EBS A1C #### [facility] [address] [place] [address] [place] #### SPE, KAPPA #### [facility] , Automated basophil countOrde red By: Misti Connolly on 07-12-2023 Basophils (Bld) [#/Vol] 0.0 10*3/uL Normal 0.0-0.2 [facility] Comment on above: Result Comment: PERF ORMED BY: [place] [address] PATHOLOGIST PEANUT BLANCHER LUIS DEE M.D. Performed By: #### C BC, CMP wRFX A1C, EBS A1C #### [place] [address] [place] #### SPE, KAPPA #### [facility] , Automated blood monocyte cou ntOrdered By: Misti Connolly on 07-12-2023 Monocytes (Bld) [#/Vol] 0.5 10*3/uL Normal 0.0-0.8 [facility] Comment on above: Performed By: #### C BC, CMP wRFX A1C, EBS A1C #### [place] [address] [place] #### SPE, KAPPA #### [facility] , Automated eosinophil %Ordere d By: Misti Connolly on 07-12-2023 Eosinophils/100 WBC (Bld) 1.1 % Normal . [facility] Comment on above: Performed By: #### C BC, CMP wRFX A1C, EBS A1C #### [facility] [address] [place] [address] [place] #### SPE, KAPPA #### [facility] , Automated eosinophil countOr dered By: Misti Connolly on 07-12-2023 Eosinophils (Bld) [#/Vol] 0.1 10*3/uL Normal 0.0-0.45 [facility] Comment on above: Performed By: #### C BC, CMP wRFX A1C, EBS A1C #### [facility] [address] [place] [address] [place] #### SPE, KAPPA #### [facility] , Automated monocyte %Ordered By: Misti Connolly on 07-12-2023 Monocytes/100 WBC (Bld) 6.2 % Normal . [facility] Comment on above: Performed By: #### C BC, CMP wRFX A1C, EBS A1C #### [facility] [address] [place] [address] [place] #### SPE, KAPPA #### [facility] , Automated neutrophil %Ordere d By: Misti Connolly on 07-12-2023 Neutrophils/100 WBC (Bld) 58.6 % Normal . [facility] Comment on above: Performed By: #### C BC, CMP wRFX A1C, EBS A1C #### [facility] [address] [place] [address] [place] #### SPE, KAPPA #### [facility] , Bilirubin.total [Mass/volume ] in Serum or PlasmaOrdered By: Misti Connolly on 07-12-2023 Bilirubin [Mass/Vol] 0.4 mg/dL Normal 0.3-1.0 [facility] Comment on above: Performed By: #### C BC, CMP wRFX A1C, EBS A1C #### [facility] [address] [place] [address] [place] #### SPE, KAPPA #### [facility] , CMP with reflex to A1Con Albumin [Mass/Vol] 3.6 g/dL Normal 3.5-5.7 [facility] Comment on above: Performed By: #### C BC, CMP wRFX A1C, EBS A1C #### [facility] [address] [place] [address] [place] #### SPE, KAPPA #### [facility] , Creatinine Clr Calc Pharmacy 19.74 Normal [facility] Comment on above: Result Comment: PERF ORMED BY: [place] [address] PATHOLOGIST PEANUT BLANCHER LUIS DEE M.D. Performed By: #### C BC, CMP wRFX A1C, EBS A1C #### [facility] [address] [place] [address] [place] #### SPE, KAPPA #### [facility] , GFR/1.73 sq M.predicted MDRD (S/P/Bld) [Vol rate/Area] 18.848 mL/min/{1.73_m2} Normal [facility] Comment on above: Performed By: #### C BC, CMP wRFX A1C, EBS A1C #### [facility] [address] [place] [address] [place] #### SPE, KAPPA #### [facility] , Calcium [Mass/volume] in Ser um or PlasmaOrdered By: Misti Mohsen on 07-12-2023 Calcium [Mass/Vol] 8.5 mg/dL Low 8.6-10.3 [facility] Comment on above: Performed By: #### C BC, CMP wRFX A1C, EBS A1C #### [facility] [address] [place] [address] [place] #### SPE, KAPPA #### [facility] , Carbon dioxide, total [Moles /volume] in Serum or PlasmaOrdered By: Misti Jeanpamela on 07-12-2023 CO2 [Moles/Vol] 22.7 mmol/L Normal 21.0-31.0 [facility] Comment on above: Performed By: #### C BC, CMP wRFX A1C, EBS A1C #### [facility] [address] [place] [address] [place] #### SPE, KAPPA #### [facility] , Chloride [Moles/volume] in S amanda or PlasmaOrdered By: Misti Mohsen on 07-12-2023 Chloride [Moles/Vol] 111 mmol/L High 98-107 [facility] Comment on above: Performed By: #### C BC, CMP wRFX A1C, EBS A1C #### [facility] [address] [place] [address] [place] #### SPE, KAPPA #### [facility] , Complete Blood Count Auto Di ffon 07-12-2023 Mean Corpuscular HGB Conc 33.2 g/dL Normal 32.0-35.0 [facility] Comment on above: Performed By: #### C BC, CMP wRFX A1C, EBS A1C #### [place] [address] [place] #### SPE, KAPPA #### [facility] , NRBC% 0.1 /100{WBC} Normal 0-0.5 [facility] Comment on above: Performed By: #### C BC, CMP wRFX A1C, EBS A1C #### [address] #### SPE, KAPPA #### [facility] , Creatinine [Mass/volume] in Serum or PlasmaOrdered By: Misti Connolly on 07-12-2023 Creatinine [Mass/Vol] 2.50 mg/dL High 0.60-1.20 [facility] Comment on above: Performed By: #### C BC, CMP wRFX A1C, EBS A1C #### [address] #### SPE, KAPPA #### [facility] , EBS A1C with Estimated Ave G luon 07-12-2023 Glucose [Mass/Vol] 174 mg/dL Normal [facility] Comment on above: Result Comment: PERF ORMED BY: [place] [address] PATHOLOGIST PEANUT BLANCHER LUIS DEE M.D. Performed By: #### C BC, CMP wRFX A1C, EBS A1C #### [place] [address] [place] #### SPE, KAPPA #### [facility] , EBS A1C with Estimated Ave G luOrdered By: Misti Connolly on 07-12-2023 HbA1c (Bld) [Mass fraction] 7.7 % High 4.3-5.6 [facility] Comment on above: Increased risk for d iabetes: 5.7 - 6.4diabetes: >6.4glycemic control for adults with diabetes: <7.0 Result Comment: Incr eased risk for diabetes: 5.7 - 6.4 diabetes: >6.4 glycemic control for adults with diabetes: <7.0 Performed By: #### C BC, CMP wRFX A1C, EBS A1C #### [place] [address] [place] #### SPE, KAPPA #### [facility] , Erythrocyte distribution wid th [Ratio] by Automated countOrdered By: Misti Connolly on 07-12-2023 Erythrocyte distribution width (RBC) [Ratio] 13.8 % Normal 11.9-15.3 [facility] Comment on above: Performed By: #### C BC, CMP wRFX A1C, EBS A1C #### [place] [address] [place] #### SPE, KAPPA #### [facility] , Erythrocytes [#/volume] in B lood by Automated countOrdered By: Misti Connolly on 07-12-2023 RBC (Bld) [#/Vol] 3.79 10*6/uL Normal 3.60-5.00 [facility] Comment on above: Performed By: #### C BC, CMP wRFX A1C, EBS A1C #### [place] [address] [place] #### SPE, KAPPA #### [facility] , Free K+L LT Chains, Qn, Son 07-12-2023 Free [place] Light Chains, S 40.5 mg/L High 3.3-19.4 [facility] Comment on above: Performed By: #### C BC, CMP wRFX A1C, EBS A1C #### [place] [address] [place] #### SPE, KAPPA #### [facility] , Free Lambda Light Chains, S 23.2 mg/L Normal 5.7-26.3 [facility] Comment on above: Performed By: #### C BC, CMP wRFX A1C, EBS A1C #### [address] #### SPE, KAPPA #### [facility] , [place]/Lambda Ratio, S 1.75 High 0.26-1.65 [facility] Comment on above: Result Comment: Perf ormed at: CB - [facility] [address] [id number] [employer] Unloader: Elpidio Delgado PhD, Phone: [phone] PERFORMED BY: [place] [address] PATHOLOGIST PEANUT BLANCHER LUIS DEE M.D. Performed By: #### C BC, CMP wRFX A1C, EBS A1C #### [address] #### SPE, KAPPA #### [facility] , Glucose [Mass/volume] in Ser um or PlasmaOrdered By: Misti Connolly on 07-12-2023 Glucose [Mass/Vol] 119 mg/dL High 70-100 [facility] Comment on above: ADA recommended refe rence range Result Comment: ADA recommended reference range Performed By: #### C BC, CMP wRFX A1C, EBS A1C #### [address] #### SPE, KAPPA #### [facility] , Glucose mean value [Mass/vol ume] in Blood Estimated from glycated hemoglobinOrdered By: Misti Connolly on 07-12-2023 Average glucose Estimated from glycated hemoglobin (Bld) [Mass/Vol] 174 mg/dL [facility] Hematocrit [Volume Fraction] of Blood by Automated countOrdered By: Misti Connolly on 07-12-2023 Hematocrit (Bld) [Volume fraction] 36.0 % Normal 34.0-46.4 [facility] Comment on above: Performed By: #### C BC, CMP wRFX A1C, EBS A1C #### [address] [place] [address] [place] #### SPE, KAPPA #### [facility] , Hemoglobin [Mass/volume] in BloodOrdered By: Misti Connolly on 07-12-2023 Hemoglobin (Bld) [Mass/Vol] 12.0 g/dL Normal 11.8-15.4 [facility] Comment on above: Performed By: #### C BC, CMP wRFX A1C, EBS A1C #### [facility] [address] #### SPE, KAPPA #### [facility] , Immunoglobulin light chains. kappa.free [Mass/volume] in SerumOrdered By: Misti Connolly on 07-12-2023 Immunoglobulin light chains.kappa.free (S) [Mass/Vol] 40.5 mg/L 3.3-19.4 [facility] Immunoglobulin light chains. kappa.free/Immunoglobulin light chains.lambda.free [MassOrdered By: Misti Connolly on 07-12-2023 Immunoglobulin light chains.kappa.free/Immunog lobulin light chains.lambda.free (S) [Mass ratio] 1.75 0.26-1.65 [facility] Comment on above: Performed at: [address] [id number] Director: Elpidio Delgado PhD, Phone: [phone] Immunoglobulin light chains. lambda.free [Mass/volume] in Serum or PlasmaOrdered By: Misti Connolly on 07-12-2023 Immunoglobulin light chains.lambda.free [Mass/Vol] 23.2 mg/L 5.7-26.3 [facility] Leukocytes [#/volume] correc dominick for nucleated erythrocytes in Blood by Automated counOrdered By: Misti Connolly on 07-12-2023 WBC corrected for nucl RBC Auto (Bld) [#/Vol] 7.3 10*3/uL 3.8-11.6 [facility] Leukocytes [#/volume] in Blo od by Automated countOrdered By: Misti Connolly on 07-12-2023 WBC (Bld) [#/Vol] 7.3 10*3/uL Normal 3.8-11.6 [facility] Comment on above: Performed By: #### C BC, CMP wRFX A1C, EBS A1C #### [facility] [address] [place] [address] [place] #### SPE, KAPPA #### [facility] , Lymphocytes [#/volume] in Bl ood by Automated countOrdered By: Misti Jeanpamela on 07-12-2023 Lymphocytes (Bld) [#/Vol] 2.4 10*3/uL Normal 1.00-4.8 [facility] Comment on above: Performed By: #### C BC, CMP wRFX A1C, EBS A1C #### [facility] [address] [place] [address] [place] #### SPE, KAPPA #### [facility] , Lymphocytes/100 leukocytes i n Blood by Automated countOrdered By: Misti Mohsen on 07-12-2023 Lymphocytes/100 WBC (Bld) 33.7 % Normal . [facility] Comment on above: Performed By: #### C BC, CMP wRFX A1C, EBS A1C #### [place] [address] [place] #### SPE, KAPPA #### [facility] , MCH [Entitic mass] by Automa dominick countOrdered By: Misti Mohsen on 07-12-2023 MCH (RBC) [Entitic mass] 31.5 pg Normal 24.7-34.3 [facility] Comment on above: Performed By: #### C BC, CMP wRFX A1C, EBS A1C #### [place] [address] [place] #### SPE, KAPPA #### [facility] , MCHC Auto (RBC) [Mass/Vol]Or dered By: Misti Mohsen on 07-12-2023 MCHC (RBC) [Mass/Vol] 33.2 g/dL 32.0-35.0 [facility] MCV [Entitic volume] by Auto mated countOrdered By: Misti Connolly on 07-12-2023 MCV (RBC) [Entitic vol] 95.0 fL Normal 80-100 [facility] Comment on above: Performed By: #### C BC, CMP wRFX A1C, EBS A1C #### [facility] [address] #### SPE, KAPPA #### [facility] , Neutrophils [#/volume] in Bl ood by Automated countOrdered By: Misti Connolly on 07-12-2023 Neutrophils (Bld) [#/Vol] 4.3 10*3/uL Normal 1.8-7.7 [facility] Comment on above: Performed By: #### C BC, CMP wRFX A1C, EBS A1C #### [address] #### SPE, KAPPA #### [facility] , No Panel InformationOrdered By: Misti Connolly on 07-12-2023 Estimated GFR (CKD-EPI) 18.848 mL/Min [facility] Creatinine Clearance (Chem 19.74 [facility] Protein Electrophoresis M-Krystian Not observed g/dL Not Observed [facility] Protein Electrophoresis Note See comment . [facility] Comment on above: Protein electrophore sis scan will follow via computer,mail, or petrophysicist delivery.Performed at: [facility] [address] Director: Elpidio Delgado PhD, Phone: [phone] Nucleated erythrocytes [Pres ence] in Blood by Automated countOrdered By: Misti Connolly on 07-12-2023 Nucleated RBC Auto Ql (Bld) 0.1 /100{WBC} 0-0.5 [facility] Platelet mean volume [Entiti c volume] in Blood by Automated countOrdered By: Misti Connolly on 07-12-2023 Platelet mean volume (Bld) [Entitic vol] 9.5 fL Normal 6.3-10.7 [facility] Comment on above: Performed By: #### C BC, CMP wRFX A1C, EBS A1C #### [facility] [address] [place] [address] [place] #### SPE, KAPPA #### [facility] , Platelets [#/volume] in Bloo d by Automated countOrdered By: Misti Connolly on 07-12-2023 Platelets (Bld) [#/Vol] 198 10*3/uL Normal 150-450 [facility] Comment on above: Performed By: #### C BC, CMP wRFX A1C, EBS A1C #### [facility] [address] [place] [address] [place] #### SPE, KAPPA #### [facility] , Potassium [Moles/volume] in Serum or PlasmaOrdered By: Misti Jeanpamela on 07-12-2023 Potassium [Moles/Vol] 4.5 mmol/L Normal 3.5-5.1 [facility] Comment on above: Performed By: #### C BC, CMP wRFX A1C, EBS A1C #### [facility] [address] [place] [address] [place] #### SPE, KAPPA #### [facility] , Protein Electrophoresis, Ser umon 07-12-2023 Jjmqw-2-Ahtdiibm 0.1 g/dL Normal 0.0-0.4 [facility] Comment on above: Performed By: #### C BC, CMP wRFX A1C, EBS A1C #### [place] [address] [place] #### SPE, KAPPA #### [facility] , Fsqms-6-Tzhqucew 1.0 g/dL Normal 0.4-1.0 [facility] Comment on above: Performed By: #### C BC, CMP wRFX A1C, EBS A1C #### [facility] [address] [place] [address] [place] #### SPE, KAPPA #### [facility] , Beta Globulin 0.9 g/dL Normal 0.7-1.3 [facility] Comment on above: Performed By: #### C BC, CMP wRFX A1C, EBS A1C #### [place] [address] [place] #### SPE, KAPPA #### [facility] , Gamma Globulin 0.6 g/dL Normal 0.4-1.8 [facility] Comment on above: Performed By: #### C BC, CMP wRFX A1C, EBS A1C #### [place] [address] [place] #### SPE, KAPPA #### [facility] , M-Krystian Not Observed Normal Not Observed [facility] Comment on above: Performed By: #### C BC, CMP wRFX A1C, EBS A1C #### [place] [address] [place] #### SPE, KAPPA #### [facility] , SPE-Note Normal . [facility] Comment on above: Result Comment: Prot ein electrophoresis scan will follow via computer, mail, or petrophysicist delivery. Performed at: [place] [id number] [employer] Unloader: Elpidio Delgado PhD, Phone: [phone] Performed By: #### C BC, CMP wRFX A1C, EBS A1C #### [place] [address] [place] #### SPE, KAPPA #### [facility] , Protein [Mass/volume] in Ser um or PlasmaOrdered By: Misti Connolly on 07-12-2023 Protein [Mass/Vol] 6.3 g/dL Low 6.4-8.9 [facility] Comment on above: Performed By: #### C BC, CMP wRFX A1C, EBS A1C #### [place] [address] [place] #### SPE, KAPPA #### [facility] , Protein [Mass/Vol] 6.2 g/dL Normal 6.0-8.5 [facility] Comment on above: Performed By: #### C BC, CMP wRFX A1C, EBS A1C #### [facility] [address] [place] [address] [place] #### SPE, KAPPA #### [facility] , Serum globulin measurement b y calculation (mass/volume)Ordered By: Misti Connolly on 07-12-2023 Globulin (S) [Mass/Vol] 2.7 g/dL Normal 2.2-3.9 [facility] Comment on above: Performed By: #### C BC, CMP wRFX A1C, EBS A1C #### [place] [address] [place] #### SPE, KAPPA #### [facility] , Serum or plasma albumin/glob ulin mass ratioOrdered By: Misti Connolly on 07-12-2023 Albumin/Globulin [Mass ratio] 1.3 {ratio} Normal 0.7-1.7 [facility] Comment on above: Performed By: #### C BC, CMP wRFX A1C, EBS A1C #### [facility] [address] [place] [address] [place] #### SPE, KAPPA #### [facility] , Serum or plasma alpha 1 glob ulin measurement by electrophoresis (mass/volume)Ordered By: Misti Connolly on 07-12-2023 Alpha 1 globulin Elph [Mass/Vol] 0.1 g/dL 0.0-0.4 [facility] Serum or plasma alpha 2 glob ulin measurement by electrophoresis (mass/volume)Ordered By: Misti Connolly on 07-12-2023 Alpha 2 globulin Elph [Mass/Vol] 1.0 g/dL 0.4-1.0 [facility] Serum or plasma anion gap de terminationOrdered By: Misti Connolly on 07-12-2023 Anion gap [Moles/Vol] 10.8 mmol/L Normal 6.0-15.0 [facility] Comment on above: Performed By: #### C BC, CMP wRFX A1C, EBS A1C #### [facility] [address] [place] [address] [place] #### SPE, KAPPA #### [facility] , Serum or plasma beta globuli n measurement by electrophoresis (mass/volume)Ordered By: Misti Connolly on 07-12-2023 Beta globulin Elph [Mass/Vol] 0.9 g/dL 0.7-1.3 [facility] Serum or plasma gamma globul in measurement by electrophoresis (mass/volume)Ordered By: Misti Connolly on 07-12-2023 Gamma globulin Elph [Mass/Vol] 0.6 g/dL 0.4-1.8 [facility] Sodium [Moles/volume] in Ser um or PlasmaOrdered By: Misti Connolly on 07-12-2023 Sodium [Moles/Vol] 140 mmol/L Normal 136-145 [facility] Comment on above: Performed By: #### C BC, CMP wRFX A1C, EBS A1C #### [place] [address] [place] #### SPE, KAPPA #### [facility] , Urea nitrogen [Mass/volume] in Serum or PlasmaOrdered By: Misti Connolly on 07-12-2023 Urea nitrogen [Mass/Vol] 33 mg/dL High 7-25 [facility] Comment on above: Performed By: #### C BC, CMP wRFX A1C, EBS A1C #### [place] [address] [place] #### SPE, KAPPA #### [facility] , Office Visit (Cardiology)on 03-23-2023 [...] Weight Tips; Status:Complete - Retrospective Authorization; Done: [id number] Some eating tips that can help you lose weight.; Status:Complete - Retrospective Authorization; Done: [id number] SocHx: Never a smoker Tobacco Use Screening; Status:Complete; Done: [id number] Patient Instructions Please bring all medicines, vitamins, [...] recurrence. She did have noninvasive assessment at [facility], which was negative. Couple of years ago. [...] Vitals Vital (more content not included)... Normal [employer] Tobacco Screening.on 023 Adult depression screening assessment No -[facility] [address] DO Work Phone: Fall risk assessment a) No falls within the last year [facility] [address] DO Work Phone: Tobacco use status [facility] b) No M Located [facility] [address] DO Work Phone: Operative Reporton Operative Report [id number]:127 Normal [facility] LIPID PROFILEon 02-21-2023 CHOL-HDL RATIO NORM SEE BELOW Normal [facility] Comment on above: Result Comment: 3.3 - 4.4 LOW RISK 4.4 - 7.1 AVERAGE RISK 7.1 - 11.0 MODERATE RISK >11.0 HIGH RISK Performed By: #### H H #### [facility] [address] [place] [address] [address] Richa Cheema Cholesterol [Mass/Vol] 173 mg/dL Normal <=200 [facility] Comment on above: Performed By: #### H H #### [facility] [address] [place] [address] [address] Richa Cheema Cholesterol in HDL [Mass/Vol] 63 mg/dL Critically high 40-60 [facility] Comment on above: Performed By: #### H H #### [facility] [address] [place] [address] [address] Richa Cheema Cholesterol in LDL [Mass/Vol] 75.6 mg/dL Normal [facility] Comment on above: Performed By: #### H H #### [facility] [address] [place] [address] [address] Richa Cheema Cholesterol.total/Cholest tash in HDL [Mass ratio] 2.7 {ratio} Normal [facility] Comment on above: Performed By: #### H H #### [facility] [address] [place] [address] [address] Richa Cheema HDL NORMAL > or = 60 mg/dl - LOW CARDIOVASCULAR RISK <40 mg/dl - HIGH CARDIOVASCULAR RISK Normal [facility] Comment on above: Performed By: #### H H #### [facility] [address] [place] [address] [address] Richa Cheema LDL CALC NORMAL SEE BELOW Normal [facility] Comment on above: Result Comment: <100 mg/dl OPTIMAL 100 - 129 mg/dl NEAR OR ABOVE OPTIMAL 130 - 159 mg/dl BORDERLINE HIGH 160 - 189 mg/dl HIGH >190 mg/dl VERY HIGH Performed By: #### H H #### [facility] [address] [place] [address] [address] Richa Cheema Triglyceride [Mass/Vol] 172 mg/dL Critically high <=150 [facility] Comment on above: Performed By: #### H H #### [facility] [address] [place] [address] [address] Richa Cheema VLDL CALC 34.4 mg/dL Normal [facility] Comment on above: Performed By: #### H H #### [facility] [address] [place] [address] [address] Richa Cheema PROF CHEM 8 (BAS METB)on Anion gap [Moles/Vol] 13.2 mmol/L Normal [facility] Comment on above: Performed By: #### H H #### [facility] [address] [place] [address] [address] Richa Cheema Calcium [Mass/Vol] 8.8 mg/dL Normal 8.5-10.1 [facility] Comment on above: Performed By: #### H H #### [facility] [address] [place] [address] [address] Richa Cheema Chloride [Moles/Vol] 108 mmol/L Critically high 98-107 [facility] Comment on above: Performed By: #### H H #### [facility] [address] [place] [address] [address] Richa Cheema CO2 [Moles/Vol] 25.7 mmol/L Normal 21.0-32.0 [facility] Comment on above: Performed By: #### H H #### [facility] [address] [place] [address] [address] Richa Cheema Creatinine [Mass/Vol] 2.30 mg/dL Critically high 0.55-1.02 [facility] Comment on above: Performed By: #### H H #### [facility] [address] [place] [address] [address] Richa Cheema EGFR-AF GAMBIAN 25 mL/min/1.73m2 Critically low >=60 [facility] Comment on above: Performed By: #### H H #### [facility] [address] [place] [address] [address] Richa Cheema EGFR-NON AF GAMBIAN 20 mL/min/1.73m2 Critically low >=60 [facility] Comment on above: Performed By: #### H H #### [facility] [address] [place] [address] [address] Richa Cheema Glucose [Mass/Vol] 139 mg/dL Critically high 74-106 [facility] Comment on above: Performed By: #### H H #### [facility] [address] [place] [address] [address] Richa Cheema Potassium [Moles/Vol] 4.9 mmol/L Normal 3.5-5.1 [facility] Comment on above: Performed By: #### H H #### [facility] [address] [place] [address] [address] Richa Cheema Sodium [Moles/Vol] 142 mmol/L Normal 136-145 [facility] Comment on above: Performed By: #### H H #### [facility] [address] [place] [address] [address] Richa Cheema Urea nitrogen [Mass/Vol] 25.0 mg/dL Critically high 7.0-18 .0 [facility] Comment on above: Performed By: #### H H #### [facility] [address] [place] [address] [address] Richa Cheema Urea nitrogen/Creatinine [Mass ratio] 10.9 mg/mg Normal [facility] Comment on above: Performed By: #### H H #### [facility] [address] [place] [address] [address] Richa Cheema SGOTon 02-21-2023 AST [Catalytic activity/Vol] 18 U/L Normal 15-37 [facility] Comment on above: Performed By: #### H H #### [facility] [address] [place], [place] [address] Dr[facility] ALT [Catalytic activity/Vol] 18 U/L Normal 14-59 [facility] Comment on above: Performed By: #### H H #### [facility] [address] [place], [place] [address] Dr. Richa Cheema Consent for Procedure/Surger yon 02-04-2023 Consent for Procedure/Surgery [id number] [id number]:127 Normal [facility] XR BONE SURVEYon 01-07-2023 XR BONE SURVEY [...] by: DIANN IBANEZ Date: 2023-01-07 07:54 Normal [facility] XR KUB 1 VIEWon 01-06-2023 XR KUB [...] by: DIANN IBANEZ Date: 2023-01-06 18:33 Normal [facility] Albumin [Mass/volume] in Ser um or PlasmaOrdered By: Claire Choi on 01-04-2023 Albumin [Mass/Vol] 3.6 g/dL 3.2-5.5 [facility] Alkaline phosphatase [Enzyma tic activity/volume] in Serum or PlasmaOrdered By: Claire Choi on 01-04-2023 ALP [Catalytic activity/Vol] 99 U/L 32-92 [facility] Aspartate aminotransferase [ Enzymatic activity/volume] in Serum or PlasmaOrdered By: Claire Choi on 01-04-2023 AST [Catalytic activity/Vol] 14 U/L 10-42 [facility] Basophils Auto (Bld) [#/Vol] Ordered By: Claire Choi on 01-04-2023 Basophils (Bld) [#/Vol] 0.1 10*3/uL 0.0-0.2 [facility] Basophils/100 WBC Auto (Bld) Ordered By: Claire Choi on 01-04-2023 Basophils/100 WBC (Bld) 0.8 % . [facility] Bilirubin.total [Mass/volume ] in Serum or PlasmaOrdered By: Claire Choi on 01-04-2023 Bilirubin [Mass/Vol] 0.6 mg/dL 0.3-1.2 [facility] Calcium [Mass/volume] in Ser um or PlasmaOrdered By: Claire Choi on 01-04-2023 Calcium [Mass/Vol] 8.7 mg/dL 8.2-10.2 [facility] Carbon dioxide, total [Moles /volume] in Serum or PlasmaOrdered By: Claire Choi on 01-04-2023 CO2 [Moles/Vol] 21.9 mmol/L 22.0-30.0 [facility] Chloride [Moles/volume] in S amanda or PlasmaOrdered By: Claire Choi on 01-04-2023 Chloride [Moles/Vol] 108 mmol/L 95-114 [facility] Creatinine and Glomerular fi ltration rate.predicted panel (S/P/Bld)Ordered By: Claire Choi on 01-04-2023 Creatinine [Mass/Vol] 2.48 mg/dL 0.44-1.03 [facility] Eosinophils Auto (Bld) [#/Vo l]Ordered By: Claire Choi on 01-04-2023 Eosinophils (Bld) [#/Vol] 0.2 10*3/uL 0.0-0.45 [facility] Eosinophils/100 WBC Auto (Bl d)Ordered By: Claire Choi on 01-04-2023 Eosinophils/100 WBC (Bld) 2.3 % . [facility] Erythrocyte distribution wid th Auto (RBC) [Ratio]Ordered By: Claire Choi on 01-04-2023 Erythrocyte distribution width (RBC) [Ratio] 13.2 % 11.9-15.3 [facility] Estimated glomerular filtrat ion rate (GFR) non- AmericanOrdered By: Claire Choi on 01-04-2023 GFR/1.73 sq M.predicted among non-blacks MDRD (S/P/Bld) [Vol rate/Area] 19 mL/Min [facility] Globulin Calc (S) [Mass/Vol] Ordered By: Claire Choi on 01-04-2023 Globulin (S) [Mass/Vol] 2.5 g/dL [facility] Glucose [Mass/volume] in Ser um or PlasmaOrdered By: Claire Choi on 01-04-2023 Glucose [Mass/Vol] 144 mg/dL 70-100 [facility] Comment on above: ADA recommended refe rence rangeRandom Glucose Reference Range is dependent on time and content of last meal. Glucose of more than 200 mg/dL in a nonstressed, ambulatory subject supports the diagnosis of Diabetes Mellitus. Hematocrit Auto (Bld) [Volum e fraction]Ordered By: Claire Choi on 01-04-2023 Hematocrit (Bld) [Volume fraction] 38.4 % 34.0-46.4 [facility] Hemoglobin [Mass/volume] in BloodOrdered By: Claire Choi on 01-04-2023 Hemoglobin (Bld) [Mass/Vol] 12.7 g/dL 11.8-15.4 [facility] Immunoglobulin light chains. kappa.free [Mass/volume] in SerumOrdered By: Claire Choi on 01-04-2023 Immunoglobulin light chains.kappa.free (S) [Mass/Vol] 26.9 mg/L 3.3-19.4 [facility] Immunoglobulin light chains. kappa.free/Immunoglobulin light chains.lambda.free [MassOrdered By: Claire Choi on 01-04-2023 Immunoglobulin light chains.kappa.free/Immunog lobulin light chains.lambda.free (S) [Mass ratio] 2.24 0.26-1.65 [facility] Comment on above: Performed at: [address] [id number] Director: Elpidio Delgado PhD, Phone: [phone] Immunoglobulin light chains. lambda.free [Mass/volume] in Serum or PlasmaOrdered By: Claire Choi on 01-04-2023 Immunoglobulin light chains.lambda.free [Mass/Vol] 12.0 mg/L 5.7-26.3 [facility] Leukocytes [#/volume] correc dominick for nucleated erythrocytes in Blood by Automated counOrdered By: Claire Choi on 01-04-2023 WBC corrected for nucl RBC Auto (Bld) [#/Vol] 8.9 10*3/uL 3.8-11.6 [facility] Lymphocytes Auto (Bld) [#/Vo l]Ordered By: Claire Choi on 01-04-2023 Lymphocytes (Bld) [#/Vol] 3.0 10*3/uL 1.00-4.8 [facility] Lymphocytes/100 WBC Auto (Bl d)Ordered By: Claire Choi on 01-04-2023 Lymphocytes/100 WBC (Bld) 34.1 % . [facility] MCH Auto (RBC) [Entitic mass ]Ordered By: Claire Choi on 01-04-2023 MCH (RBC) [Entitic mass] 31.4 pg 24.7-34.3 [facility] MCHC Auto (RBC) [Mass/Vol]Or dered By: Claire Choi on 01-04-2023 MCHC (RBC) [Mass/Vol] 33.0 g/dL 32.0-35.0 [facility] MCV Auto (RBC) [Entitic vol] Ordered By: Claier Choi on 01-04-2023 MCV (RBC) [Entitic vol] 95.1 fL 80-100 [facility] Monocytes Auto (Bld) [#/Vol] Ordered By: Claire Choi on 01-04-2023 Monocytes (Bld) [#/Vol] 0.7 10*3/uL 0.0-0.8 [facility] Monocytes/100 WBC Auto (Bld) Ordered By: Claire Choi on 01-04-2023 Monocytes/100 WBC (Bld) 8.0 % . [facility] Neutrophils Auto (Bld) [#/Vo l]Ordered By: Claire Choi on 01-04-2023 Neutrophils (Bld) [#/Vol] 4.9 10*3/uL 1.8-7.7 [facility] Neutrophils/100 WBC Auto (Bl d)Ordered By: Claire Choi on 01-04-2023 Neutrophils/100 WBC (Bld) 54.8 % . [facility] No Panel InformationOrdered By: Claire Choi on 01-04-2023 Estimated GFR () 23 mL/Min [facility] Comment on above: GFR estimated refere nce range: According to KDOQI guidelines, <60 ml/min/1.73m2 is sufficient to diagnose a patient with chronic kidney disease. Pharmacy Creatinine Clearance (Chem 19.82 [facility] Nucleated erythrocytes [Pres ence] in Blood by Automated countOrdered By: Claire Choi on 01-04-2023 Nucleated RBC Auto Ql (Bld) 0.0 /100{WBC} 0-0.5 [facility] Platelet mean volume Auto (B ld) [Entitic vol]Ordered By: Claire Choi on 01-04-2023 Platelet mean volume (Bld) [Entitic vol] 9.6 fL 6.3-10.7 [facility] Platelets Auto (Bld) [#/Vol] Ordered By: Claire Choi on 01-04-2023 Platelets (Bld) [#/Vol] 210 10*3/uL 150-450 [facility] Potassium [Moles/volume] in Serum or PlasmaOrdered By: Claire Choi on 01-04-2023 Potassium [Moles/Vol] 4.3 mmol/L 3.5-5.1 [facility] Protein [Mass/volume] in Ser um or PlasmaOrdered By: Claire Choi on 01-04-2023 Protein [Mass/Vol] 6.1 g/dL 6.1-7.9 [facility] RBC Auto (Bld) [#/Vol]Ordere d By: Claire Choi on 01-04-2023 RBC (Bld) [#/Vol] 4.04 10*6/uL 3.60-5.00 [facility] Serum or plasma alanine genao otransferase measurement without P-5'-P (enzymatic activiOrdered By: Claire Choi on 01-04-2023 ALT No additional P-5'-P [Catalytic activity/Vol] 14 U/L 10-60 [facility] Serum or plasma albumin/glob ulin mass ratioOrdered By: Claire Choi on 01-04-2023 Albumin/Globulin [Mass ratio] 1.4 {ratio} [facility] Serum or plasma anion gap de terminationOrdered By: Claire Choi on 01-04-2023 Anion gap [Moles/Vol] 11.4 mmol/L 6.0-15.0 [facility] Sodium [Moles/volume] in Ser um or PlasmaOrdered By: Claire Choi on 01-04-2023 Sodium [Moles/Vol] 137 mmol/L 136-146 [facility] Urea nitrogen [Mass/volume] in Serum or PlasmaOrdered By: Claire Choi on 01-04-2023 Urea nitrogen [Mass/Vol] 33 mg/dL 9- [facility] WBC Auto (Bld) [#/Vol]Ordere d By: Claire Choi on 01-04-2023 WBC (Bld) [#/Vol] 8.9 10*3/uL 3.8-11.6 [facility] PTH INTACTon 12-15-2022 PTH, Intact 79 pg/mL Critically high 15-65 [facility] Comment on above: Performed By: #### M G, RENAL, URIC #### [facility] [address] [address] [address] Richa Cheema HEMOGRAM AND PLATELon 2022 Hematocrit (Bld) [Volume fraction] 40.4 % Normal 36.0-48.0 [facility] Comment on above: Performed By: #### H H #### [facility] [address] [address] [address] Richa Cheema Hemoglobin (Bld) [Mass/Vol] 13.5 g/dL Normal 12.0-16.0 [facility] Comment on above: Performed By: #### H H #### [facility] [address] [address] [address] Richa Cheema MCH (RBC) [Entitic mass] 31.7 pg Normal 26.7-34.0 [facility] Comment on above: Performed By: #### H H #### [facility] [address] [address] [address] Richa Cheema MCHC (RBC) [Mass/Vol] 33.4 g/dL Normal 29.9-35.2 [facility] Comment on above: Performed By: #### H H #### [facility] [address] [place] [address] Dr. Richa Cheema MCV (RBC) [Entitic vol] 94.8 fL Normal 81.0-99.0 [facility] Comment on above: Performed By: #### H H #### [facility] [address] [place] [address] Dr. iRcha Cheema PLT 218 103/ul Normal 150-450 [facility] Comment on above: Performed By: #### H H #### [facility] [address] [place] [address] Dr. Richa Cheema RBC 4.26 106/ul Normal 4.20-5.40 [facility] Comment on above: Performed By: #### H H #### [facility] [address] [place] [address] Dr. Richa Cheema WBC 8.7 103/ul Normal 4.0-11.0 [facility] Comment on above: Performed By: #### H H #### [facility] [address] [place] [address] Dr. Richa Cheema MAGNESIUMon 12-14-2022 Magnesium [Mass/Vol] 2.0 mg/dL Normal 1.8-2.4 [facility] Comment on above: Performed By: #### M G, RENAL, URIC #### [facility] [address] [place] [address] Dr. Richa Cheema RENAL FUNCTION PANELon 12-14 Albumin [Mass/Vol] 3.4 g/dL Normal 3.4-5.0 [facility] Comment on above: Performed By: #### M G, RENAL, URIC #### [facility] [address] [place] [address] Dr. Richa Cheema Calcium [Mass/Vol] 8.6 mg/dL Normal 8.5-10.1 [facility] Comment on above: Performed By: #### M G, RENAL, URIC #### [facility] [address] [address] [address] Richa Cheema Chloride [Moles/Vol] 104 mmol/L Normal 98-107 [facility] Comment on above: Performed By: #### M G, RENAL, URIC #### [facility] [address] [address] [address] Richa Cheema CO2 [Moles/Vol] 29.7 mmol/L Normal 21.0-32.0 [facility] Comment on above: Performed By: #### M G, RENAL, URIC #### [facility] [address] [place] [address] Dr. Richa Cheema Creatinine [Mass/Vol] 2.29 mg/dL Critically high 0.55-1.02 [facility] Comment on above: Performed By: #### M G, RENAL, URIC #### [facility] [address] [place] [address] Dr. Richa Cheema EGFR-AF GAMBIAN 25 mL/min/1.73m2 Critically low >=60 [facility] Comment on above: Performed By: #### M G, RENAL, URIC #### [facility] [address] [place] [address] Dr. Richa Cheema EGFR-NON AF GAMBIAN 21 mL/min/1.73m2 Critically low >=60 [facility] Comment on above: Performed By: #### M G, RENAL, URIC #### [facility] [address] [place] [address] Dr. Richa Cheema Glucose [Mass/Vol] 133 mg/dL Critically high 74-106 [facility] Comment on above: Performed By: #### M G, RENAL, URIC #### [facility] [address] [place] [address] Dr. Richa Cheema Phosphate [Mass/Vol] 3.9 mg/dL Normal 2.6-4.7 [facility] Comment on above: Performed By: #### M G, RENAL, URIC #### [facility] [address] [address] [address] Richa Cheema Potassium [Moles/Vol] 4.4 mmol/L Normal 3.5-5.1 [facility] Comment on above: Performed By: #### M G, RENAL, URIC #### [facility] [address] [address] [address] Richa Cheema Sodium [Moles/Vol] 141 mmol/L Normal 136-145 [facility] Comment on above: Performed By: #### M G, RENAL, URIC #### [facility] [address] [address] [address] Richa Cheema Urea nitrogen [Mass/Vol] 30.0 mg/dL Critically high 7.0-18 .0 [facility] Comment on above: Performed By: #### M G, RENAL, URIC #### [facility] [address] [address] [address] Richa Cheema UA RANDOM W/MICROSCOPICon BACTERIA NONE SEEN Normal NONE SEEN [facility] Comment on above: Performed By: #### U AMIC #### [facility] [address] [place] [address] Dr. Richa Cheema Bilirubin Ql (U) Negative Normal NEGATIVE [facility] Comment on above: Performed By: #### U AMIC #### [facility] [address] [place] [address] Dr. Richa Cheema CAST NONE SEEN Normal NONE SEEN [facility] Comment on above: Performed By: #### U AMIC #### [facility] [address] [place] [address] Dr. Richa Cheema Clarity (U) CLEAR Normal CLEAR [facility] Comment on above: Performed By: #### U AMIC #### [facility] [address] [place] [address] Dr. Richa Cheema Color (U) LT. YELLOW Normal YELLOW [facility] Comment on above: Performed By: #### U AMIC #### [facility] [address] [place] [address] Dr. Richa Cheema Crystals LM Nom (Urine sed) NONE SEEN Normal NONE SEEN [facility] Comment on above: Performed By: #### U AMIC #### [facility] [address] [place] [address] Dr. Richa Cheema Epithelial cells LM Ql (Urine sed) RARE Normal NONE SEEN /RARE [facility] Comment on above: Performed By: #### U AMIC #### [facility] [address] [place] [address] Dr. Richa Cheema Glucose Ql (U) Negative Normal NEGATIVE [facility] Comment on above: Performed By: #### U AMIC #### [facility] [address] [address] [address] Richa Cheema Hemoglobin Ql (U) TRACE-INTACT Abnormal NEGATIVE [facility] Comment on above: Performed By: #### U AMIC #### [facility] [address] [address] [address] Richa Cheema Ketones Ql (U) Negative Normal NEGATIVE [facility] Comment on above: Performed By: #### U AMIC #### [facility] [address] [place] [address] Dr. Richa Cheema LEUKOCYTES Negative Normal NEGATIVE [facility] Comment on above: Performed By: #### U AMIC #### [facility] [address] [place] [address] Dr. Richa Cheema MUCOUS NONE SEEN Normal NONE SEEN [facility] Comment on above: Performed By: #### U AMIC #### [facility] [address] [place] [address] Dr. Richa Cheema Nitrite Ql (U) Negative Normal NEGATIVE [facility] Comment on above: Performed By: #### U AMIC #### [facility] [address] [place] [address] Dr. Richa Cheema pH (U) 8.0 [pH] Normal 5-9 [facility] Comment on above: Performed By: #### U AMIC #### [facility] [address] [address] [address] Richa Cheema RBC 0-2 Normal 0-2 [facility] Comment on above: Performed By: #### U AMIC #### [facility] [address] [place] [address] Dr. Richa Cheema SPEC GRAVITY 1.015 Normal 1.005-<=1.02 5 [facility] Comment on above: Performed By: #### U AMIC #### [facility] [address] [address] [address] Richa Cheema UA PROTEIN 100 mg/dl Abnormal NEGATIVE/ TRACE [facility] Comment on above: Performed By: #### U AMIC #### [facility] [address] [address] [address] Richa Cheema Urobilinogen Qn (U) 0.2 {Marley'U}/dL Normal 0.2 - 1. 0 [facility] Comment on above: Performed By: #### U AMIC #### [facility] [address] [address] [address] Richa Cheema WBC NONE SEEN Normal NONE SEEN [facility] Comment on above: Performed By: #### U AMIC #### [facility] [address] [place] [address] Dr. Richa Cheema URIC ACID SERUMon 12-14-2022 Urate [Mass/Vol] 5.3 mg/dL Normal 2.6-6.0 [facility] Comment on above: Performed By: #### M G, RENAL, URIC #### [facility] [address] [address] [address] Richa Cheema URINE T PROTEIN CREAT RATIOo n 12-14-2022 Protein (U) [Mass/Vol] 113.5 mg/dL Critically high <=12.0 [facility] Comment on above: Performed By: #### M G, RENAL, URIC #### [facility] [address] [address] [address] Richa Cheema UR PROT CREAT RAT 1.55 Normal [facility] Comment on above: Performed By: #### M G, RENAL, URIC #### [facility] [address] [address] [address] Richa Cheema URINE CREAT 73.37 mg/dL Normal 20.00-300.00 [facility] Comment on above: Performed By: #### M G, RENAL, URIC #### [facility] [address] [address] [address] Richa Cheema VITAMIN D 25 OHon 12-14-2022 VIT D 25-OH 42.8 ng/mL Normal [facility] Comment on above: Performed By: #### H H #### [facility] [address] [id number] Richa Cheema VIT D RANGES SEE BELOW Normal [facility] Comment on above: Result Comment: <20 ng/mL Vit D deficient 20 - <30 ng/mL Vit D insufficient 30 - 100 ng/mL Vit D sufficient >100 ng/mL Potential Toxicity Performed By: #### H H #### [facility] [address], [place] [address] Dr. Richa Cheema Albumin [Mass/volume] in Ser um or PlasmaOrdered By: Claire Choi on 10-04-2022 Albumin [Mass/Vol] 3.6 g/dL 2.9-4.4 [facility] - Hematology and Cell countsOrdered By: Claire Choi on 10-04-2022 Nucleated RBC/100 WBC (Bld) [Ratio] 0.1 % 0-0.5 [facility] No Panel InformationOrdered By: Claire Choi on 10-04-2022 Protein Electrophoresis M-Krystian Not observed g/dL Not Observed [facility] Protein Electrophoresis Note See comment . [facility] Comment on above: Protein electrophore sis scan will follow via computer,mail, or petrophysicist delivery.Performed at: - [address] [id number] Director: Elpidio Delgado PhD, Phone: [phone] Protein [Mass/volume] in Ser um or PlasmaOrdered By: Claire Choi on 10-04-2022 Protein [Mass/Vol] 6.1 g/dL 6.0-8.5 [facility] Serum globulin measurement ( mass/volume)Ordered By: Claire Choi on 10-04-2022 Globulin (S) [Mass/Vol] 2.5 g/dL 2.2-3.9 [facility] Serum or plasma albumin/glob ulin mass ratioOrdered By: Claire Choi on 10-04-2022 Albumin/Globulin [Mass ratio] 1.4 {ratio} 0.7-1.7 [facility] Serum or plasma alpha 1 glob ulin measurement by electrophoresis (mass/volume)Ordered By: Claire Choi on 10-04-2022 Alpha 1 globulin Elph [Mass/Vol] 0.2 g/dL 0.0-0.4 [facility] Serum or plasma alpha 2 glob ulin measurement by electrophoresis (mass/volume)Ordered By: Claire Choi on 10-04-2022 Alpha 2 globulin Elph [Mass/Vol] 0.9 g/dL 0.4-1.0 [facility] Serum or plasma beta globuli n measurement by electrophoresis (mass/volume)Ordered By: Claire Choi on 10-04-2022 Beta globulin Elph [Mass/Vol] 0.8 g/dL 0.7-1.3 [facility] Serum or plasma gamma globul in measurement by electrophoresis (mass/volume)Ordered By: Claire Choi on 10-04-2022 Gamma globulin Elph [Mass/Vol] 0.6 g/dL 0.4-1.8 [facility] Albumin [Mass/volume] in Ser um or PlasmaOrdered By: Claire Choi on 07-13-2022 Albumin [Mass/Vol] 3.4 g/dL 2.9-4.4 [facility] Immunoglobulin light chains. kappa.free [Mass/volume] in SerumOrdered By: Claire Choi on 07-13-2022 Immunoglobulin light chains.kappa.free (S) [Mass/Vol] 21.9 mg/L 3.3-19.4 [facility] Immunoglobulin light chains. kappa.free/Immunoglobulin light chains.lambda.free [MassOrdered By: Claire Choi on 07-13-2022 Immunoglobulin light chains.kappa.free/Immunog lobulin light chains.lambda.free (S) [Mass ratio] 1.87 0.26-1.65 [facility] Comment on above: Performed at: [address] [id number] [employer]: Elpidio Delgado PhD, Phone: [phone] Immunoglobulin light chains. lambda.free [Mass/volume] in Serum or PlasmaOrdered By: Claire Choi on 07-13-2022 Immunoglobulin light chains.lambda.free [Mass/Vol] 11.7 mg/L 5.7-26.3 [facility] Laboratory - Chemistry and C hemistry - challengeOrdered By: Claire Choi on 07-13-2022 Protein [Mass/Vol] 0.2 g/dL Not Observed [facility] No Panel InformationOrdered By: Claire Choi on 07-13-2022 Protein Electrophoresis Note See comment . [facility] Comment on above: Protein electrophore sis scan will follow via computer, mail, or petrophysicist delivery. Performed at: [facility] [employer] [id number] [employer]: Elpidio Delgado PhD, Phone: [phone] Protein [Mass/volume] in Ser um or PlasmaOrdered By: Claire Choi on 07-13-2022 Protein [Mass/Vol] 6.2 g/dL 6.0-8.5 [facility] Serum globulin measurement ( mass/volume)Ordered By: Claire Choi on 07-13-2022 Globulin (S) [Mass/Vol] 2.8 g/dL 2.2-3.9 [facility] Serum or plasma albumin/glob ulin mass ratioOrdered By: Claire Choi on 07-13-2022 Albumin/Globulin [Mass ratio] 1.2 {ratio} 0.7-1.7 [facility] Serum or plasma alpha 1 glob ulin measurement by electrophoresis (mass/volume)Ordered By: Claire Choi on 07-13-2022 Alpha 1 globulin Elph [Mass/Vol] 0.2 g/dL 0.0-0.4 [facility] Serum or plasma alpha 2 glob ulin measurement by electrophoresis (mass/volume)Ordered By: Claire Choi on 07-13-2022 Alpha 2 globulin Elph [Mass/Vol] 0.9 g/dL 0.4-1.0 [facility] Serum or plasma beta globuli n measurement by electrophoresis (mass/volume)Ordered By: Claire Choi on 07-13-2022 Beta globulin Elph [Mass/Vol] 1.0 g/dL 0.7-1.3 [facility] Serum or plasma gamma globul in measurement by electrophoresis (mass/volume)Ordered By: Claire Choi on 07-13-2022 Gamma globulin Elph [Mass/Vol] 0.8 g/dL 0.4-1.8 [facility] CBC AUTO DIFFon 07-12-2022 BASO # 0.0 103/ul Normal 0.0-0.1 [facility] Comment on above: Performed By: #### M G, RENAL, URIC #### [facility] [address] [address] [address] Richa Cheema Basophils/100 WBC (Bld) 0.2 % Normal 0.2-2.0 [facility] Comment on above: Performed By: #### M G, RENAL, URIC #### [facility] [address] [place] [address] Dr. Richa Cheema EO # 0.1 103/ul Normal 0.0-0.7 [facility] Comment on above: Performed By: #### M G, RENAL, URIC #### [facility] [address] [address] [address] Richa Cheema Eosinophils/100 WBC (Bld) 1.5 % Normal 0.9-7.0 [facility] Comment on above: Performed By: #### M G, RENAL, URIC #### [facility] [address] [place] [address] Dr. Richa Cheema Erythrocyte distribution width (RBC) [Ratio] 13.8 % Normal 11.0-15.0 [facility] Comment on above: Performed By: #### M G, RENAL, URIC #### [facility] [address] [place] [address] Dr. Richa Cheema Hematocrit (Bld) [Volume fraction] 38.4 % Normal 36.0-48.0 [facility] Comment on above: Performed By: #### M G, RENAL, URIC #### [facility] [address] [place] [address] Dr. Richa Cheema Hemoglobin (Bld) [Mass/Vol] 13.0 g/dL Normal 12.0-16.0 [facility] Comment on above: Performed By: #### M G, RENAL, URIC #### [facility] [address] [address] [address] Richa Cheema IG # 0.01 10e3/ul Normal 0.00-0.03 [facility] Comment on above: Performed By: #### M G, RENAL, URIC #### [facility] [address] [address] [address] Richa Cheema IG % 0.1 % Normal 0.0-0.5 [facility] Comment on above: Performed By: #### M G, RENAL, URIC #### [facility] [address] [address] [address] Richa Cheema LYMPH # 3.5 103/ul Normal 1.2-3.8 [facility] Comment on above: Performed By: #### M G, RENAL, URIC #### [facility] [address] [address] [address] Richa Cheema Lymphocytes/100 WBC (Bld) 42.4 % Normal 20.5-60.0 [facility] Comment on above: Performed By: #### M G, RENAL, URIC #### [facility] [address] [address] [address] Richa Cheema MANUAL DIFF REQ NO Normal [facility] Comment on above: Performed By: #### M G, RENAL, URIC #### [facility] [address] [address] [address] Richa Cheema MCH (RBC) [Entitic mass] 31.8 pg Normal 26.7-34.0 [facility] Comment on above: Performed By: #### M G, RENAL, URIC #### [facility] [address] [address] [address] Richa Cheema MCHC (RBC) [Mass/Vol] 33.9 g/dL Normal 29.9-35.2 [facility] Comment on above: Performed By: #### M G, RENAL, URIC #### [facility] [address] [address] [address] Richa Cheema MCV (RBC) [Entitic vol] 93.9 fL Normal 81.0-99.0 [facility] Comment on above: Performed By: #### M G, RENAL, URIC #### [facility] [address] [place] [address] Dr. Richa Cheema MONO # 0.5 103/ul Normal 0.3-0.8 [facility] Comment on above: Performed By: #### M G, RENAL, URIC #### [facility] [address] [place] [address] Dr. Richa Cheema Monocytes/100 WBC (Bld) 6.6 % Normal 1.7-12.0 [facility] Comment on above: Performed By: #### M G, RENAL, URIC #### [facility] [address] [place] [address] Dr. Richa Cheema NEUT # 4.0 103/ul Normal 1.4-6.5 [facility] Comment on above: Performed By: #### M G, RENAL, URIC #### [facility] [address] [place] [address] Dr. Richa Cheema Neutrophils/100 WBC (Bld) 49.2 % Normal 43.0-75.0 [facility] Comment on above: Performed By: #### M G, RENAL, URIC #### [facility] [address] [place] [address] Dr. Richa Cheema Platelet mean volume (Bld) [Entitic vol] 10.9 fL Normal 9.5-13.5 [facility] Comment on above: Performed By: #### M G, RENAL, URIC #### [facility] [address] [place] [address] Dr. Richa Cheema PLT 193 103/ul Normal 150-450 [facility] Comment on above: Performed By: #### M G, RENAL, URIC #### [facility] [address] [place] [address] Dr. Richa Cheema RBC 4.09 106/ul Critically low 4.20-5.40 [facility] Comment on above: Performed By: #### M G, RENAL, URIC #### [facility] [address] [place] [address] Dr. Richa Cheema WBC 8.2 103/ul Normal 4.0-11.0 [facility] Comment on above: Performed By: #### M G, RENAL, URIC #### [facility] [address] [place] [address] Dr. Richa Cheema PROF 14(COMP METB)on 022 Albumin [Mass/Vol] 3.7 g/dL Normal 3.4-5.0 [facility] Comment on above: Performed By: #### C MP #### [facility] [address] [place] [address] Dr. Richa Cheema Albumin/Globulin [Mass ratio] 1.2 {ratio} Normal [facility] Comment on above: Performed By: #### C MP #### [facility] [address] [place] [address] Dr. Richa Cheema ALP [Catalytic activity/Vol] 105 U/L Normal 46-116 [facility] Comment on above: Performed By: #### C MP #### [facility] [address] [place] [address] Dr. Richa Cheema ALT [Catalytic activity/Vol] 18 U/L Normal 14-59 [facility] Comment on above: Performed By: #### C MP #### [facility] [address] [place] [address] Dr. Richa Cheema Anion gap [Moles/Vol] 11.4 mmol/L Normal [facility] Comment on above: Performed By: #### C MP #### [facility] [address] [place] [address] Dr. Richa Cheema AST [Catalytic activity/Vol] 12 U/L Critically low 15-37 [facility] Comment on above: Performed By: #### C MP #### [facility] [address] [place] [address] Dr. Richa Cheema Bilirubin [Mass/Vol] 0.3 mg/dL Normal 0.2-1.0 [facility] Comment on above: Performed By: #### C MP #### [facility] [address] [place] [address] Dr. Richa Cheema Calcium [Mass/Vol] 8.8 mg/dL Normal 8.5-10.1 [facility] Comment on above: Performed By: #### C MP #### [facility] [address] [address] [address] Richa Cheema Chloride [Moles/Vol] 104 mmol/L Normal 98-107 [facility] Comment on above: Performed By: #### C MP #### [facility] [address] [address] [address] Richa Cheema CO2 [Moles/Vol] 26.9 mmol/L Normal 21.0-32.0 [facility] Comment on above: Performed By: #### C MP #### [facility] [address] [address] [address] Richa Cheema Creatinine [Mass/Vol] 2.38 mg/dL Critically high 0.55-1.02 [facility] Comment on above: Performed By: #### C MP #### [facility] [address] [address] [address] Richa Cheema EGFR-AF GAMBIAN 24 mL/min/1.73m2 Critically low >=60 [facility] Comment on above: Performed By: #### C MP #### [facility] [address] [place] [address] Dr. Richa Cheema EGFR-NON AF GAMBIAN 20 mL/min/1.73m2 Critically low >=60 [facility] Comment on above: Performed By: #### C MP #### [facility] [address] [address] [address] Richa Cheema Globulin (S) [Mass/Vol] 3.1 g/dL Normal [facility] Comment on above: Performed By: #### C MP #### [facility] [address] [address] [address] Richa Cheema Glucose [Mass/Vol] 146 mg/dL Critically high 74-106 [facility] Comment on above: Performed By: #### C MP #### [facility] [address] [address] [address] Richa Cheema Potassium [Moles/Vol] 4.3 mmol/L Normal 3.5-5.1 [facility] Comment on above: Performed By: #### C MP #### [facility] [address] [address] [address] Richa Cheema Protein [Mass/Vol] 6.8 g/dL Normal 6.4-8.2 [facility] Comment on above: Performed By: #### C MP #### [facility] [address] [address] [address] Richa Cheema Sodium [Moles/Vol] 138 mmol/L Normal 136-145 [facility] Comment on above: Performed By: #### C MP #### [facility] [address] [address] [address] Richa Cheema Urea nitrogen [Mass/Vol] 31.0 mg/dL Critically high 7.0-18 .0 [facility] Comment on above: Performed By: #### C MP #### [facility] [address] [address] [address] Richa Cheema Urea nitrogen/Creatinine [Mass ratio] 13.0 mg/mg Normal [facility] Comment on above: Performed By: #### C MP #### [facility] [address] [address] [address] Richa Cheema PTH INTACTon 07-01-2022 PTH, Intact 93 pg/mL Critically high 15-65 [facility] Comment on above: Performed By: #### H H #### [facility] [address] [place] [address] Dr. Richa Cheema VIT D 25-OH LABCORPon 2021 Vitamin D, 25-Hydroxy 31.8 ng/mL Normal 30.0-100.0 [facility] Comment on above: Result Comment: Emelyn min D deficiency has been defined by the [employer] and an Endocrine Society practice guideline as a level of serum 25-OH vitamin D less than 20 ng/mL (1,2). The Endocrine Society went on to further define vitamin D insufficiency as a level between 21 and 29 ng/mL (2). 1. IOM ([employer] of [employer]). 2010. Dietary reference intakes for calcium and D. [place]: The National Academies Press. 2. Reji MF, Caro NC, Marguerite MCMAHON, et al. Evaluation, treatment, and prevention of vitamin D deficiency: an Endocrine Society clinical practice guideline. JCEM. 2010; 96(7):1911-30. Performed By: #### M G, RENAL, URIC #### [facility] [address] [address] [address] Richa Cheema HEMOGRAM AND PLATELon 2021 Hematocrit (Bld) [Volume fraction] 39.4 % Normal 36.0-48.0 [facility] Comment on above: Performed By: #### H H #### [facility] [address] [place] [address] Dr. Richa Cheema Hemoglobin (Bld) [Mass/Vol] 13.1 g/dL Normal 12.0-16.0 [facility] Comment on above: Performed By: #### H H #### [facility] [address] [place] [address] Dr. Richa Cheema MCH (RBC) [Entitic mass] 31.6 pg Normal 26.7-34.0 [facility] Comment on above: Performed By: #### H H #### [facility] [address] [place] [address] Dr. Richa Cheema MCHC (RBC) [Mass/Vol] 33.2 g/dL Normal 29.9-35.2 [facility] Comment on above: Performed By: #### H H #### [facility] [address] [place] [address] Dr. Richa Cheema MCV (RBC) [Entitic vol] 94.9 fL Normal 81.0-99.0 [facility] Comment on above: Performed By: #### H H #### [facility] [address] [place] [address] Dr. Richa Cheema PLT 186 103/ul Normal 150-450 [facility] Comment on above: Performed By: #### H H #### [facility] [address] [place] [address] Dr. Richa Cheema RBC 4.15 106/ul Critically low 4.20-5.40 [facility] Comment on above: Performed By: #### H H #### [facility] [address] [address] [address] Richa Cheema WBC 9.5 103/ul Normal 4.0-11.0 [facility] Comment on above: Performed By: #### H H #### [facility] [address] [address] [address] Richa Cheema MAGNESIUMon 06-30-2022 Magnesium [Mass/Vol] 1.9 mg/dL Normal 1.8-2.4 [facility] Comment on above: Performed By: #### M Dalia, RENAL, URIC #### [facility] [address] [place] [address] Dr. Richa Cheema RENAL FUNCTION PANELon 06-30 Albumin [Mass/Vol] 3.6 g/dL Normal 3.4-5.0 [facility] Comment on above: Performed By: #### M G, RENAL, URIC #### [facility] [address] [place] [address] Dr. Richa Cheema Calcium [Mass/Vol] 8.6 mg/dL Normal 8.5-10.1 [facility] Comment on above: Performed By: #### M G, RENAL, URIC #### [facility] [address] [place] [address] Dr. Richa Cheema Chloride [Moles/Vol] 105 mmol/L Normal 98-107 [facility] Comment on above: Performed By: #### M G, RENAL, URIC #### [facility] [address] [place] [address] Dr. Richa Cheema CO2 [Moles/Vol] 25.5 mmol/L Normal 21.0-32.0 [facility] Comment on above: Performed By: #### M G, RENAL, URIC #### [facility] [address] [place] [address] Dr. Richa Cheema Creatinine [Mass/Vol] 2.19 mg/dL Critically high 0.55-1.02 [facility] Comment on above: Performed By: #### M G, RENAL, URIC #### [facility] [address] [address] [address] Richa Cheema EGFR-AF GAMBIAN 26 mL/min/1.73m2 Critically low >=60 [facility] Comment on above: Performed By: #### M G, RENAL, URIC #### [facility] [address] [address] [address] Richa Cheema EGFR-NON AF GAMBIAN 22 mL/min/1.73m2 Critically low >=60 [facility] Comment on above: Performed By: #### M G, RENAL, URIC #### [facility] [address] [address] [address] Richa Cheema Glucose [Mass/Vol] 156 mg/dL Critically high 74-106 [facility] Comment on above: Performed By: #### M G, RENAL, URIC #### [facility] [address] [address] [address] Richa Cheema Phosphate [Mass/Vol] 3.8 mg/dL Normal 2.6-4.7 [facility] Comment on above: Performed By: #### M G, RENAL, URIC #### [facility] [address] [address] [address] Richa Cheema Potassium [Moles/Vol] 4.7 mmol/L Normal 3.5-5.1 [facility] Comment on above: Performed By: #### M G, RENAL, URIC #### [facility] [address] [address] [address] Richa Cheema Sodium [Moles/Vol] 139 mmol/L Normal 136-145 [facility] Comment on above: Performed By: #### M G, RENAL, URIC #### [facility] [address] [address] [address] Richa Cheeam Urea nitrogen [Mass/Vol] 25.0 mg/dL Critically high 7.0-18 .0 [facility] Comment on above: Performed By: #### M G, RENAL, URIC #### [facility] [address] [address] [address] Richa Cheema UA RANDOM W/MICROSCOPICon BACTERIA NONE SEEN Normal NONE SEEN [facility] Comment on above: Performed By: #### H H #### [facility] [address] [place] [address] Dr. Richa Cheema Bilirubin Ql (U) Negative Normal NEGATIVE [facility] Comment on above: Performed By: #### H H #### [facility] [address] [place] [address] Dr. Richa Cheema CAST NONE SEEN Normal NONE SEEN [facility] Comment on above: Performed By: #### H H #### [facility] [address] [place] [address] Dr. Richa Cheema Clarity (U) CLEAR Normal CLEAR [facility] Comment on above: Performed By: #### H H #### [facility] [address] [place] [address] Dr. Richa Cheema Color (U) LT. YELLOW Normal YELLOW [facility] Comment on above: Performed By: #### H H #### [facility] [address] [place] [address] Dr. Richa Cheema Crystals LM Nom (Urine sed) NONE SEEN Normal NONE SEEN [facility] Comment on above: Performed By: #### H H #### [facility] [address] [place] [address] Dr. Richa Cheema Epithelial cells LM Ql (Urine sed) FEW Abnormal NONE SEEN /RARE [facility] Comment on above: Performed By: #### H H #### [facility] [address] [place] [address] Dr. Richa Cheema Glucose Ql (U) Negative Normal NEGATIVE [facility] Comment on above: Performed By: #### H H #### [facility] [address] [place] [address] Dr. Richa Cheema Hemoglobin Ql (U) Negative Normal NEGATIVE [facility] Comment on above: Performed By: #### H H #### [facility] [address] [place] [address] Dr. Richa Cheema Ketones Ql (U) Negative Normal NEGATIVE [facility] Comment on above: Performed By: #### H H #### [facility] [address] [place] [address] Dr. Richa Cheema LEUKOCYTES Negative Normal NEGATIVE [facility] Comment on above: Performed By: #### H H #### [facility] [address] [place] [address] Dr. Richa Cheema MUCOUS NONE SEEN Normal NONE SEEN [facility] Comment on above: Performed By: #### H H #### [facility] [address] [place] [address] Dr. Richa Cheema Nitrite Ql (U) Negative Normal NEGATIVE [facility] Comment on above: Performed By: #### H H #### [facility] [address] [place] [address] Dr. Richa Cheema pH (U) 7.5 [pH] Normal 5-9 [facility] Comment on above: Performed By: #### H H #### [facility] [address] [place] [address] Dr. Richa Cheema RBC NONE SEEN Abnormal 0-2 [facility] Comment on above: Performed By: #### H H #### [facility] [address] [place] [address] Dr. Richa Cheema SPEC GRAVITY 1.015 Normal 1.005-<=1.02 5 [facility] Comment on above: Performed By: #### H H #### [facility] [address] [place] [address] Dr. Richa Cheema UA PROTEIN 30 mg/dl Abnormal NEGATIVE/ TRACE [facility] Comment on above: Performed By: #### H H #### [facility] [address] [place] [address] Dr. Richa Cheema Urobilinogen Qn (U) 0.2 {Marley'U}/dL Normal 0.2 - 1. 0 [facility] Comment on above: Performed By: #### H H #### [facility] [address] [place] [address] Dr. Richa Cheema WBC NONE SEEN Normal NONE SEEN [facility] Comment on above: Performed By: #### H H #### [facility] [address] [address] [address] Richa Cheema URIC ACID SERUMon 06-30-2022 Urate [Mass/Vol] 5.4 mg/dL Normal 2.6-6.0 [facility] Comment on above: Performed By: #### M G, RENAL, URIC #### [facility] [address] [address] [address] Richa Cheema URINE T PROTEIN CREAT RATIOo n 06-30-2022 Protein (U) [Mass/Vol] 72.9 mg/dL Critically high <=12.0 [facility] Comment on above: Performed By: #### U RTPCR #### [facility] [address] [address] [address] Richa Cheema UR PROT CREAT RAT 0.90 Normal [facility] Comment on above: Performed By: #### U RTPCR #### [facility] [address] [address] [address] Richa Cheema URINE CREAT 80.68 mg/dL Normal 20.00-300.00 [facility] Comment on above: Performed By: #### U RTPCR #### [facility] [address] [address] [address] Richa Cheema Office Visit (Cardiology)on 06-16-2022 [...] treatment plan.; Status:Complete - Retrospective Authorization; Done: 16Jun2022 Aortic valve regurgitation, nonrheumatic, HTN (hypertension) Basic Metabolic Panel; Status:Active - Retrospective Authorization; Requested for:[id number]; Class 1 obesity with body mass index (BMI) of 30.0 to 30.9 in adult Healthy Weight Tips; Status:Complete - Retrospective Authorization; Done: 16Jun2022 Some eating tips that can help you lose weight.; Status:Complete - Retrospective Authorization; Done: 16Jun2022 HTN (hypertension) Renew: amLODIPine Besylate 2.5 MG Oral Tablet; TAKE 1 TABLET DAILY Renew: Carvedilol 12.5 MG Oral Tablet; Take 1 tablet twice a day Hyperlipemia Renew: Atorvastatin Calcium 40 MG Oral Tablet; TAKE 1 TABLET DAILY ALT - Alanine Aminotransferase, Serum; Status:Active - Retrospective Authorization; Requested for:21Feb2023; AST; Status:Active - Retrospective Authorization; Requested for:21Feb2023; Lipid Panel; Status:Active - Retrospective Authorization; Requested for:[id number]; Persistent atrial fibrillation with RVR Renew: Aspirin EC 81 MG Oral Tablet Delayed Release; TAKE 1 TABLET DAILY Renew: Xarelto 15 MG Oral Tablet; Take 1 tablet daily SocHx: Never a smoker Tobacco Use Screening; Status:Complete; Done: [id number] Patient Instructions Please bring all medicines, vitamins, [...] recurrence. She did have noninvasive assessment at [facility], which was negative. Couple of years ago. [...] TabletTake 1 (more content not included)... Normal [employer] Tobacco Screening.on 022 Adult depression screening assessment No [facility] [address] [facility] Work Phone: Fall risk assessment a) No falls within the last year [facility] [address] [facility] Work Phone: Tobacco use status [facility] b) No M [facility] [address] DO Work Phone: FREE LIGHT CHAINS PLUS RATIO on 06-01-2022 Free [place] Lt Chains,S 24.1 mg/L Critically high 3.3-19.4 [facility] Comment on above: Performed By: #### M G, RENAL, URIC #### [facility] [address], [place] [address] Dr. Richa Cheema Free Lambda Lt Chains,S 17.1 mg/L Normal 5.7-26.3 [facility] Comment on above: Performed By: #### M G, RENAL, URIC #### [facility] [address], [place] [address] Dr. Richa Cheema [place]/Lambda Ratio, S 1.41 Normal 0.26-1.65 [facility] Comment on above: Performed By: #### M G, RENAL, URIC #### [facility] [address], [place] [address] Dr. Richa Cheema Albumin [Mass/volume] in Ser um or PlasmaOrdered By: Claire Choi on 05-31-2022 Albumin [Mass/Vol] 3.5 g/dL 3.2-5.5 [facility] Basophils Auto (Bld) [#/Vol] Ordered By: Claire Choi on 05-31-2022 Basophils (Bld) [#/Vol] 0.1 10*3/uL 0.0-0.2 [facility] Basophils/100 WBC Auto (Bld) Ordered By: Claire Choi on 05-31-2022 Basophils/100 WBC (Bld) 0.9 % . [facility] Blood hemoglobin measurement (mass/volume)Ordered By: Claire Choi on 05-31-2022 Hemoglobin (Bld) [Mass/Vol] 13.5 g/dL 11.8-15.4 [facility] Blood leukocytes automated c ount (number/volume)Ordered By: Claire Choi on 05-31-2022 WBC (Bld) [#/Vol] 9.6 10*3/uL 4.5-11.0 [facility] Creatinine and Glomerular fi ltration rate.predicted panel (S/P/Bld)Ordered By: Claire Choi on 05-31-2022 Creatinine [Mass/Vol] 2.38 mg/dL 0.44-1.03 [facility] Eosinophils Auto (Bld) [#/Vo l]Ordered By: Claire Choi on 05-31-2022 Eosinophils (Bld) [#/Vol] 0.1 10*3/uL 0.0-0.45 [facility] Eosinophils/100 WBC Auto (Bl d)Ordered By: Claire Choi on 05-31-2022 Eosinophils/100 WBC (Bld) 1.0 % . [facility] Erythrocyte distribution wid th Auto (RBC) [Ratio]Ordered By: Claire Choi on 05-31-2022 Erythrocyte distribution width (RBC) [Ratio] 13.8 % 11.9-15.3 [facility] Estimated glomerular filtrat ion rate (GFR) non- AmericanOrdered By: Claire Choi on 05-31-2022 GFR/1.73 sq M.predicted among non-blacks MDRD (S/P/Bld) [Vol rate/Area] 20 mL/Min [facility] Globulin Calc (S) [Mass/Vol] Ordered By: Claire Choi on 05-31-2022 Globulin (S) [Mass/Vol] 2.7 g/dL [facility] Hematocrit Auto (Bld) [Volum e fraction]Ordered By: Claire Choi on 05-31-2022 Hematocrit (Bld) [Volume fraction] 41.0 % 34.0-46.4 [facility] Laboratory - Hematology and Cell countsOrdered By: Claire Choi on 05-31-2022 Nucleated RBC/100 WBC (Bld) [Ratio] 0.1 % 0-0.5 [facility] Lymphocytes Auto (Bld) [#/Vo l]Ordered By: Claire Choi on 05-31-2022 Lymphocytes (Bld) [#/Vol] 3.1 10*3/uL 1.00-4.8 [facility] Lymphocytes/100 WBC Auto (Bl d)Ordered By: Claire Choi on 05-31-2022 Lymphocytes/100 WBC (Bld) 32.7 % . [facility] MCH Auto (RBC) [Entitic mass ]Ordered By: Claire Choi on 05-31-2022 MCH (RBC) [Entitic mass] 31.0 pg 24.7-34.3 [facility] MCHC Auto (RBC) [Mass/Vol]Or dered By: Claire Choi on 05-31-2022 MCHC (RBC) [Mass/Vol] 33.0 g/dL 32.0-35.0 [facility] MCV Auto (RBC) [Entitic vol] Ordered By: Claire Choi on 05-31-2022 MCV (RBC) [Entitic vol] 94.0 fL 80-100 [facility] Monocytes Auto (Bld) [#/Vol] Ordered By: Claire Choi on 05-31-2022 Monocytes (Bld) [#/Vol] 0.6 10*3/uL 0.0-0.8 [facility] Monocytes/100 WBC Auto (Bld) Ordered By: Claire Choi on 05-31-2022 Monocytes/100 WBC (Bld) 6.0 % . [facility] Neutrophils Auto (Bld) [#/Vo l]Ordered By: Claire Choi on 05-31-2022 Neutrophils (Bld) [#/Vol] 5.7 10*3/uL 1.8-7.7 [facility] Neutrophils/100 WBC Auto (Bl d)Ordered By: Claire Choi on 05-31-2022 Neutrophils/100 WBC (Bld) 59.4 % . [facility] No Panel InformationOrdered By: Claire Choi on 05-31-2022 Estimated GFR () 24 mL/Min [facility] Comment on above: GFR estimated refere nce range: According to KDOQI guidelines, <60 ml/min/1.73m2 is sufficient to diagnose a patient with chronic kidney disease. Pharmacy Creatinine Clearance (Chem 20.55 [facility] PROTEIN ELECTROPHERESISon Albumin [Mass/Vol] 3.8 g/dL Normal 2.9-4.4 [facility] Comment on above: Performed By: #### P RTELEC #### [facility] [address] [place] [address] Dr. Richa Cheema Albumin/Globulin [Mass ratio] 1.5 {ratio} Normal 0.7-1.7 [facility] Comment on above: Performed By: #### P RTELEC #### [facility] [address] [place] [address] Dr. Richa Cheema Qpppl-5-Yvgipozw 0.2 g/dL Normal 0.0-0.4 [facility] Comment on above: Performed By: #### P RTELEC #### [facility] [address] [place] [address] Dr. Richa Cheema Bcinh-9-Dkhxcfpv 0.9 g/dL Normal 0.4-1.0 [facility] Comment on above: Performed By: #### P RTELEC #### [facility] [address] [place] [address] Dr. Richa Cheema Beta Globulin 0.9 g/dL Normal 0.7-1.3 [facility] Comment on above: Performed By: #### P RTELEC #### [facility] [address] [place] [address] Dr. Richa Cheema Gamma Globulin 0.6 g/dL Normal 0.4-1.8 [facility] Comment on above: Performed By: #### P RTELEC #### [facility] [address] [place] [address] Dr. Richa Cheema Globulin (S) [Mass/Vol] 2.5 g/dL Normal 2.2-3.9 [facility] Comment on above: Performed By: #### P RTELEC #### [facility] [address] [place] [address] Dr. Richa Cheema M-Krystian Not Observed Normal Not Observed [facility] Comment on above: Performed By: #### P RTELEC #### [facility] [address] [place] [address] Dr. Richa Cheema PDF . Normal [facility] Comment on above: Performed By: #### P RTELEC #### [facility] [address] [place] [address] Dr. Richa Cheema Please note: Comment Normal [facility] Comment on above: Result Comment: Prot ein electrophoresis scan will follow via computer, mail, or petrophysicist delivery. Performed By: #### P RTELEC #### [facility] [address] [address] [address] Richa Cheema Protein [Mass/Vol] 6.3 g/dL Normal 6.0-8.5 [facility] Comment on above: Performed By: #### P RTELEC #### [facility] [address] [address] [address] Richa Cheema Platelet mean volume Auto (B ld) [Entitic vol]Ordered By: Claire Choi on 05-31-2022 Platelet mean volume (Bld) [Entitic vol] 9.4 fL 6.3-10.7 [facility] Platelets Auto (Bld) [#/Vol] Ordered By: Claire Choi on 05-31-2022 Platelets (Bld) [#/Vol] 254 10*3/uL 150-450 [facility] Protein [Mass/volume] in Ser um or PlasmaOrdered By: Claire Choi on 05-31-2022 Protein [Mass/Vol] 6.2 g/dL 6.1-7.9 [facility] RBC Auto (Bld) [#/Vol]Ordere d By: Claire Choi on 05-31-2022 RBC (Bld) [#/Vol] 4.37 10*6/uL 3.60-5.00 [facility] Serum or plasma alanine genao otransferase measurement without P-5'-P (enzymatic activiOrdered By: Claire Choi on 05-31-2022 ALT No additional P-5'-P [Catalytic activity/Vol] 15 U/L 10-60 [facility] Serum or plasma albumin/glob ulin mass ratioOrdered By: Claire Chio on 05-31-2022 Albumin/Globulin [Mass ratio] 1.3 {ratio} [facility] Serum or plasma alkaline bree sphatase measurement (enzymatic activity/volume)Ordered By: Claire Choi on 05-31-2022 ALP [Catalytic activity/Vol] 90 U/L 32-92 [facility] Serum or plasma aspartate am inotransferase measurement (enzymatic activity/volume)Ordered By: Claire Choi on 05-31-2022 AST [Catalytic activity/Vol] 19 U/L 10-42 [facility] Serum or plasma calcium leonor urement (mass/volume)Ordered By: Claire Choi on 05-31-2022 Calcium [Mass/Vol] 8.9 mg/dL 8.2-10.2 [facility] Serum or plasma chloride trinidad surement (moles/volume)Ordered By: Claire Choi on 05-31-2022 Chloride [Moles/Vol] 106 mmol/L 95-114 [facility] Serum or plasma glucose leonor urement (mass/volume)Ordered By: Claire Choi on 05-31-2022 Glucose [Mass/Vol] 151 mg/dL 70-100 [facility] Comment on above: ADA recommended refe rence range Random Glucose Reference Range is dependent on time and content of last meal. Glucose of more than 200 mg/dL in a nonstressed, ambulatory subject supports the diagnosis of Diabetes Mellitus. Serum or plasma potassium me asurement (moles/volume)Ordered By: Claire Choi on 05-31-2022 Potassium [Moles/Vol] 4.9 mmol/L 3.5-5.1 [facility] Serum or plasma sodium measu rement (moles/volume)Ordered By: Claire Choi on 05-31-2022 Sodium [Moles/Vol] 135 mmol/L 136-146 [facility] Serum or plasma total biliru bin measurement (mass/volume)Ordered By: Claire Choi on 05-31-2022 Bilirubin [Mass/Vol] 0.7 mg/dL 0.3-1.2 [facility] Serum or plasma total carbon dioxide measurement (moles/volume)Ordered By: Claire Choi on 05-31-2022 CO2 [Moles/Vol] 20.9 mmol/L 22.0-30.0 [facility] Serum or plasma urea nitroge n measurement (mass/volume)Ordered By: Claire Choi on 05-31-2022 Urea nitrogen [Mass/Vol] 28 mg/dL 9-23 [facility] CBC AUTO DIFFon 05-28-2022 BASO # 0.0 103/ul Normal 0.0-0.1 [facility] Comment on above: Performed By: #### M G, RENAL, URIC #### [facility] [address] [place] [address] Dr. Richa Cheema Basophils/100 WBC (Bld) 0.4 % Normal 0.2-2.0 [facility] Comment on above: Performed By: #### M G, RENAL, URIC #### [facility] [address] [place] [address] Dr. Richa Cheema EO # 0.1 103/ul Normal 0.0-0.7 [facility] Comment on above: Performed By: #### M G, RENAL, URIC #### [facility] [address] [place] [address] Dr. Richa Cheema Eosinophils/100 WBC (Bld) 1.2 % Normal 0.9-7.0 [facility] Comment on above: Performed By: #### M G, RENAL, URIC #### [facility] [address] [place] [address] Dr. Richa Cheema Erythrocyte distribution width (RBC) [Ratio] 13.5 % Normal 11.0-15.0 [facility] Comment on above: Performed By: #### M G, RENAL, URIC #### [facility] [address] [place] [address] Dr. Richa Cheema Hematocrit (Bld) [Volume fraction] 41.3 % Normal 36.0-48.0 [facility] Comment on above: Performed By: #### M G, RENAL, URIC #### [facility] [address] [place] [address] Dr. Richa Cheema Hemoglobin (Bld) [Mass/Vol] 13.5 g/dL Normal 12.0-16.0 [facility] Comment on above: Performed By: #### M G, RENAL, URIC #### [facility] [address] [place] [address] Dr. Richa Cheema IG # 0.02 10e3/ul Normal 0.00-0.03 [facility] Comment on above: Performed By: #### M G, RENAL, URIC #### [facility] [address] [address] [address] Richa Cheema IG % 0.2 % Normal 0.0-0.5 [facility] Comment on above: Performed By: #### M G, RENAL, URIC #### [facility] [address] [address] [address] Richa Cheema LYMPH # 2.6 103/ul Normal 1.2-3.8 [facility] Comment on above: Performed By: #### M G, RENAL, URIC #### [facility] [address] [address] [address] Richa Cheema Lymphocytes/100 WBC (Bld) 32.0 % Normal 20.5-60.0 [facility] Comment on above: Performed By: #### M G, RENAL, URIC #### [facility] [address] [place] [address] Dr. Richa Cheema MANUAL DIFF REQ NO Normal [facility] Comment on above: Performed By: #### M G, RENAL, URIC #### [facility] [address] [address] [address] Richa Cheema MCH (RBC) [Entitic mass] 31.0 pg Normal 26.7-34.0 [facility] Comment on above: Performed By: #### M G, RENAL, URIC #### [facility] [address] [address] [address] Richa Cheema MCHC (RBC) [Mass/Vol] 32.7 g/dL Normal 29.9-35.2 [facility] Comment on above: Performed By: #### M G, RENAL, URIC #### [facility] [address] [address] [address] Richa Cheema MCV (RBC) [Entitic vol] 94.7 fL Normal 81.0-99.0 [facility] Comment on above: Performed By: #### M G, RENAL, URIC #### [facility] [address] [address] [address] Richa Cheema MONO # 0.5 103/ul Normal 0.3-0.8 [facility] Comment on above: Performed By: #### M G, RENAL, URIC #### [facility] [address] [place] [address] Dr. Richa Cheema Monocytes/100 WBC (Bld) 5.7 % Normal 1.7-12.0 [facility] Comment on above: Performed By: #### M G, RENAL, URIC #### [facility] [address] [place] [address] Dr. Richa Cheema NEUT # 4.9 103/ul Normal 1.4-6.5 [facility] Comment on above: Performed By: #### M G, RENAL, URIC #### [facility] [address] [place] [address] Dr. Richa Cheema Neutrophils/100 WBC (Bld) 60.5 % Normal 43.0-75.0 [facility] Comment on above: Performed By: #### M G, RENAL, URIC #### [facility] [address] [place] [address] Dr. Richa Cheema Platelet mean volume (Bld) [Entitic vol] 10.6 fL Normal 9.5-13.5 [facility] Comment on above: Performed By: #### M G, RENAL, URIC #### [facility] [address] [place] [address] Dr. Richa Cheema PLT 229 103/ul Normal 150-450 [facility] Comment on above: Performed By: #### M G, RENAL, URIC #### [facility] [address] [place] [address] Dr. Richa Cheema RBC 4.36 106/ul Normal 4.20-5.40 [facility] Comment on above: Performed By: #### M G, RENAL, URIC #### [facility] [address] [place] [address] Dr. Richa Cheema WBC 8.1 103/ul Normal 4.0-11.0 [facility] Comment on above: Performed By: #### M G, RENAL, URIC #### [facility] [address] [place] [address] Dr. Richa Cheema GLYCOHEMOGLOBIN A1Con 2021 ADA RECOMMENDATION SEE BELOW Normal [facility] Comment on above: Result Comment: ADA RECOMMENDED LIMIT 4.0 - 6.0 ADA THERAPEUTIC TARGET < 7.0 ACTION SUGGESTED > 7.0 Performed By: #### H H #### [facility] [address] [place] [address] Dr. Richa Cheema Glucose [Mass/Vol] 166 mg/dL Normal [facility] Comment on above: Performed By: #### H H #### [facility] [address] [address] [address] Richa Cheema HbA1c (Bld) [Mass fraction] 7.4 % Critically high 4.5-6.2 [facility] Comment on above: Performed By: #### H H #### [facility] [address] [place] [address] Dr. Richa Cheema PROF 14(COMP METB)on 022 Albumin [Mass/Vol] 3.4 g/dL Normal 3.4-5.0 [facility] Comment on above: Performed By: #### M G, RENAL, URIC #### [facility] [address] [place] [address] Dr. Richa Cheema Albumin/Globulin [Mass ratio] 1.0 {ratio} Normal [facility] Comment on above: Performed By: #### M G, RENAL, URIC #### [facility] [address] [place] [address] Dr. Richa Cheema ALP [Catalytic activity/Vol] 111 U/L Normal 46-116 [facility] Comment on above: Performed By: #### M G, RENAL, URIC #### [facility] [address] [place] [address] Dr. Richa Cheema ALT [Catalytic activity/Vol] 21 U/L Normal 14-59 [facility] Comment on above: Performed By: #### M G, RENAL, URIC #### [facility] [address] [place] [address] Dr. Richa Cheema Anion gap [Moles/Vol] 14.1 mmol/L Normal [facility] Comment on above: Performed By: #### M G, RENAL, URIC #### [facility] [address] [address] [address] Richa Cheema AST [Catalytic activity/Vol] 13 U/L Critically low 15-37 [facility] Comment on above: Performed By: #### M G, RENAL, URIC #### [facility] [address] [address] [address] Richa Cheema Bilirubin [Mass/Vol] 0.3 mg/dL Normal 0.2-1.0 [facility] Comment on above: Performed By: #### M G, RENAL, URIC #### [facility] [address] [place] [address] Dr. Richa Cheema Calcium [Mass/Vol] 9.1 mg/dL Normal 8.5-10.1 [facility] Comment on above: Performed By: #### M G, RENAL, URIC #### [facility] [address] [place] [address] Dr. iRcha Cheema Chloride [Moles/Vol] 107 mmol/L Normal 98-107 [facility] Comment on above: Performed By: #### M G, RENAL, URIC #### [facility] [address] [place] [address] Dr. Richa Cheema CO2 [Moles/Vol] 23.7 mmol/L Normal 21.0-32.0 [facility] Comment on above: Performed By: #### M G, RENAL, URIC #### [facility] [address] [place] [address] Dr. Richa Cheema Creatinine [Mass/Vol] 2.56 mg/dL Critically high 0.55-1.02 [facility] Comment on above: Performed By: #### M G, RENAL, URIC #### [facility] [address] [place] [address] Dr. Richa Cheema EGFR-AF GAMBIAN 22 mL/min/1.73m2 Critically low >=60 [facility] Comment on above: Performed By: #### M G, RENAL, URIC #### [facility] [address] [place] [address] Dr. Richa Cheema EGFR-NON AF GAMBIAN 18 mL/min/1.73m2 Critically low >=60 [facility] Comment on above: Performed By: #### M G, RENAL, URIC #### [facility] [address] [address] [address] Richa Cheema Globulin (S) [Mass/Vol] 3.4 g/dL Normal [facility] Comment on above: Performed By: #### M G, RENAL, URIC #### [facility] [address] [address] [address] Richa Cheema Glucose [Mass/Vol] 211 mg/dL Critically high 74-106 [facility] Comment on above: Performed By: #### M G, RENAL, URIC #### [facility] [address] [address] [address] Richa Cheema Potassium [Moles/Vol] 4.8 mmol/L Normal 3.5-5.1 [facility] Comment on above: Performed By: #### M G, RENAL, URIC #### [facility] [address] [address] [address] Richa Cheema Protein [Mass/Vol] 6.8 g/dL Normal 6.4-8.2 [facility] Comment on above: Performed By: #### M G, RENAL, URIC #### [facility] [address] [address] [address] Richa Cheema Sodium [Moles/Vol] 140 mmol/L Normal 136-145 [facility] Comment on above: Performed By: #### M G, RENAL, URIC #### [facility] [address] [address] [address] Richa Cheema Urea nitrogen [Mass/Vol] 29.0 mg/dL Critically high 7.0-18 .0 [facility] Comment on above: Performed By: #### M G, RENAL, URIC #### [facility] [address] [address] [address] Richa Cheema Urea nitrogen/Creatinine [Mass ratio] 11.3 mg/mg Normal [facility] Comment on above: Performed By: #### M G, RENAL, URIC #### [facility] [address], [place] [address] Dr. Richa Cheema [facility] SARS-CoV-2 (COVID-19) RNA RADHA+probe Ql (Unsp spec) Detected Critically abnormal NOT DETECTED [facility] Comment on above: Result Comment: This test is not yet approved or cleared by the [place] FDA. When there are no FDA-approved or cleared tests available, and other criteria are met, FDA can make tests available under an emergency access mechanism called an Emergency Use Authorization (EUA). The EUA for this test is supported by the [place] of Health and Human Service's (HHS's) declaration [...] longer be used). Performed By: #### C VDTB #### [facility] [address] [id number] Richa Cheema XR LSPINE MIN 4 [...] DIANN IBANEZ Date: 2022-04-14 11:25 Normal [facility] CT HEAD WO CONon 04-07-2022 CT [...] by: DIANN IBANEZ Date: 2022-04-07 15:47 Normal [facility] - Chemistry and C hemistry - challengeOrdered By: Akin Suarez on 09-07-2021 Magnesium [Mass/Vol] 2.0 mg/dL 1.6-2.6 [facility] No Panel InformationOrdered By: Akin Suarez on 09-07-2021 25-Hydroxy Vitamin D Total 38.5 ng/mL 30-100 [facility] Comment on above: VITAMIN D STATUS 25( [place])VITAMIN D RANGE (ng/mL) Deficient <20 Insufficient 20 to <30 Sufficient 30 to 100 Reference: Caro Vallejo, Marguerite MCMAHON, et al. Evaluation,treatment, [...] on 09-07-2021 Phosphate [Mass/Vol] 3.7 mg/dL 2.5-4.6 [facility] Serum or plasma intact parat hyroid hormone measurement (mass/volume)Ordered By: Akin Suarez on 09-07-2021 Parathyrin.intact [Mass/Vol] 137.7 pg/mL High 12 [facility] Serum or plasma uric acid me asurement (mass/volume)Ordered By: Akin Suarez on 09-07-2021 Urate [Mass/Vol] 4.8 mg/dL 2.6-7.2 [facility] Tobacco Screening.on 021 Fall risk assessment a) No falls within the last year [facility] [address] DO Work Phone: Tobacco use status [facility] b) No M [facility] [address] DO Work Phone: CT biopsyOrdered By: Mike sweet on 06-09-2021 CT biopsy 24 Hours [facility] IgA [Mass/volume] in Serum o r PlasmaOrdered By: Mike Bradley on 06-09-2021 IgA [Mass/Vol] 65 mg/dL 64-422 [facility] IgG [Mass/volume] in Serum o r PlasmaOrdered By: Mike Bradley on 06-09-2021 IgG [Mass/Vol] 654 mg/dL [phone] [facility] IgM [Mass/volume] in Serum o r PlasmaOrdered By: Mike Bradley on 06-09-2021 IgM [Mass/Vol] 23 mg/dL 26-217 [facility] Comment on above: Result confirmed on concentration. Performed at: [employer] [facility] [id number] [employer]: Elpidoi Delgado PhD, Phone: [phone] Result confirmed on concentration.Performed at: [employer] [facility] [id number] Director: Elpidio Delgado PhD, Phone: [phone] Immunofixation for UrineOrde red By: Mike Bradley on 06-09-2021 Interpretation Immunofixation (U) [Interp] See comment Abnormal . [facility] Comment on above: Bence Jenkins Protein positive; kappa type. Performed at: - [facility] [address] [place], [place] [id number] [employer]: Elpidio Delgado PhD, Phone: [phone] Bence Jenkins Protein positive; kappa type.Performed at: [id number] [place], [place] [id number] Director: Elpidio Delgado PhD, Phone: [phone] No Panel InformationOrdered By: Mike Bradley on 06-09-2021 Serum Immunofixation See comment . [facility] Comment on above: Immunofixation shows IgG monoclonal protein with kappa light chain specificity. Please note that samples from patients receiving DARZALEX(R) (daratumumab) treatment can appear as an IgG kappa and mask a complete response. If this patient is receiving IRMA, this HAILEE assay interference can be removed by ordering test number [id number]- Immunofixation, Daratumumab- Specific, Serum and submitting a [...] interference can be removedby ordering test number [id number]- Immunofixation, Daratumumab-Specific, Serum and submitting a new sample for testing orby calling the lab to add this test to the current sample. Urine Albumin 24 Hours 33.2 % . [facility] Urine Diclu-2-Iyoihmbx 4.3 % . [facility] Urine Yxgoj-4-Djmvoxgvk 16.0 % . [facility] Urine Beta Globulin 36.7 % . [facility] Urine Gamma Globulin 9.8 % . [facility] Urine IEP M-Krystian % 24 Hr 21.1 % High Not Observ ed [facility] Urine Random Prot Electrophor Note See comment . [facility] Comment on above: Protein electrophore sis scan will follow via computer, mail, or petrophysicist delivery. Protein electrophore sis scan will follow via computer,mail, or petrophysicist delivery. Protein [Mass/time] in 24 ho ur UrineOrdered By: Mike Bradley on 06-09-2021 Protein (24H U) [Mass/Time] 125 mg/24 hr 30-150 [facility] Protein [Mass/volume] in Uri neOrdered By: Mike Bradley on 06-09-2021 Protein (U) [Mass/Vol] 8.5 mg/dL Not Estab. [facility] Protein.monoclonal [Mass/ruddy e] in 24 hour Urine by ElectrophoresisOrdered By: Mike Bradley on 06-09-2021 Protein.monoclonal Elph (24H U) [Mass/Time] 26.5 mg/24 hr High Not Observed [facility] Urine volume measurementOrde red By: Mike Bradley on 06-09-2021 Specimen volume (U) 1475 ml [facility] Urine culture routineon 02-12 Bacteria identified Cx Nom (U) Pseudomonas aeruginosa [facility] Automated epithelial cells c ount in urine sediment (number/area)on 02-24-2021 Epithelial cells Auto (Urine sed) [#/Area] 0-1 [HPF] 0-2 [facility] Automated erythrocytes count in urine sediment (number/area)on 02-24-2021 RBC Auto (Urine sed) [#/Area] Innumerable [HPF] 0-4 [facility] Automated leukocytes count i n urine sediment (number/area)on 02-24-2021 WBC Auto (Urine sed) [#/Area] 0-1 [HPF] 0-4 [facility] Automated urine specific gra vity by refractometryon 02-24-2021 Specific gravity Refractometry automated (U) [Rel density] 1.009 1.001-1.030 [facility] Comment on above: Rechecked by refract ometer Bilirubin Test strip Ql (U)o n 02-24-2021 Bilirubin Ql (U) See comment Negative [facility] Comment on above: Unable to obtain acc urate result due to color interference. Color Auto (U)on 02-24-2021 Color (U) Red Yellow [facility] Creatinine [Mass/volume] in Urineon 02-24-2021 Creatinine (U) [Mass/Vol] 77.2 mg/dL [facility] Comment on above: No reference range e stablished Ketones Auto test strip (U) [Mass/Vol]on 02-24-2021 Ketones (U) [Mass/Vol] See comment Negative [facility] Comment on above: Unable to obtain acc urate result due to color interference. Nitrite Test strip Ql (U)on 02-24-2021 Nitrite Ql (U) See comment Negative [facility] Comment on above: Unable to obtain acc urate result due to color interference. Protein Auto test strip (U) [Mass/Vol]on 02-24-2021 Protein (U) [Mass/Vol] See comment Negative [facility] Comment on above: Unable to obtain acc urate result due to color interference. Urine bacteria detection by automated methodon 02-24-2021 Bacteria Auto Ql (U) None seen None Seen [facility] Urine clarity by refractomet ry automatedon 02-24-2021 Clarity Refractometry automated (U) Turbid Clear [facility] Urine culture routineon 02-12 Bacteria identified Cx Nom (U) Pseudomonas aeruginosa [facility] Bacteria identified Cx Nom (U) Pseudomonas aeruginosa Abnormal [facility] Urine glucose measurement by automated test strip (mass/volume)on 02-24-2021 Glucose Auto test strip (U) [Mass/Vol] See comment Normal [facility] Comment on above: Unable to obtain acc urate result due to color interference. Urine hemoglobin detection b y automated test stripon 02-24-2021 Hemoglobin Auto test strip Ql (U) See comment Negative [facility] Comment on above: Unable to obtain acc urate result due to color interference. Urine leukocyte esterase det ection by automated test stripon 02-24-2021 Leukocyte esterase Auto test strip Ql (U) See comment Negative [facility] Comment on above: Unable to obtain acc urate result due to color interference. Urine protein/creatinine rat ioon 02-24-2021 Protein/Creatinine (U) [Ratio] 2098 mg/g{Cre} High 0-200 [facility] Urobilinogen Auto test strip (U) [Mass/Vol]on 02-24-2021 Urobilinogen (U) [Mass/Vol] See comment Normal [facility] Comment on above: Unable to obtain acc urate result due to color interference. pH Auto test strip (U)on pH (U) See comment 5.0-9.0 [facility] Comment on above: Unable to obtain acc urate result due to color interference. Laboratory - Chemistry and C hemistry - challengeon 10-28-2020 Cobalamin (Vitamin B12) [Mass/Vol] 506 pg/mL 180-914 [facility] Laboratory - Hematology and Cell countson 10-28-2020 WBC (Bld) [#/Vol] 10.0 10*3/uL 4.5-11.0 [facility] - Urinalysison Hyaline casts LM Ql (Urine sed) 0-8 [LPF] 0-8 [facility] Urine culture routineon Bacteria identified Cx Nom (U) bacilli - 1 Day [facility] Serum intrinsic factor block ing antibody detection by radioimmunoassay (MAGGIE)on 02-28-2019 Intrinsic factor blocking Ab MAGGIE Ql (S) 0.9 AU/mL 0.0-1.1 [facility] Comment on above: Performed at: [employer] [address] [id number] [employer]: Britton Valente MD, Phone: [phone] Performed at: [facility] [address] [id number] Director: Britton Valente MD, Phone: [phone] Serum parietal cell antibody assay (units/volume)on 02-28-2019 Parietal cell Ab Qn (S) 1.9 Units 0.0-20.0 [facility] Comment on above: Negative 0.0 - 20.0 Equivocal 20.1 - 24.9 Positive >24.9 Parietal Cell Antibodies are found in 90% of patients with pernicious anemia and 30% of first degree relatives with pernicious anemia. Performed at: [facility] [id number] [employer] Unloader: Elpidio Delgado PhD, Phone: [phone] Negative 0.0 - 20.0 Equivocal 20.1 - 24.9 Positive >24.9Parietal Cell Antibodies are found in 90% of patientswith pernicious anemia and 30% of first degreerelatives with pernicious anemia.Performed at: [facility] [address] [id number] Director: Elpidio Delgado PhD, Phone: [phone] Glucose Glucometer (BldC) [M ass/Vol]on 01-02-2019 Glucose [Mass/Vol] 133 mg/dL [facility] Comment on above: Random Glucose Refer ence Range is dependent on time and content of last meal. Glucose of more than 200 mg/dL in a nonstressed, ambulatory subject supports the diagnosis of Diabetes Mellitus. Glucose mean value [Mass/vol ume] in Blood Estimated from glycated hemoglobinon 01-02-2019 Average glucose Estimated from glycated hemoglobin (Bld) [Mass/Vol] 183 mg/dL [facility] HbA1c (Bld)on 01-02-2019 HbA1c (Bld) [Mass fraction] 8.0 % 4.3-5.6 [facility] Comment on above: Increased risk for d iabetes: 5.7 - 6.4 diabetes: >6.4 glycemic control for adults with diabetes: <7.0 Increased risk for d iabetes: 5.7 - 6.4diabetes: >6.4glycemic control for adults with diabetes: <7.0 IgA [Mass/volume] in Serum o r Plasmaon 10-13-2018 IgA [Mass/Vol] 65 mg/dL 64-422 [facility] IgG [Mass/volume] in Serum o r Plasmaon 10-13-2018 IgG [Mass/Vol] 487 mg/dL Low 700-1600 [facility] IgM [Mass/volume] in Serum o r Plasmaon 10-13-2018 IgM [Mass/Vol] 38 mg/dL 26-217 [facility] Comment on above: Performed at: [facility] [place] [address] [place], [place] [id number] O[employer] Unloader: Elpidio Delgado PhD, Phone: [phone] Performed at: [facility] [address] [id number] Director: Elpidio Delgado PhD, Phone: [phone] Serum or plasma 25-hydroxyca lciferol measurement (mass/volume)on 09-15-2017 25-hydroxyvitamin D2 [Mass/Vol] <1.0 ng/mL . [facility] Serum or plasma calcidiol me asurement (mass/volume)on 09-15-2017 25-hydroxyvitamin D3 [Mass/Vol] 65 ng/mL . [facility] Comment on above: Performed at: [facility] [address] [place], [place] [id number] O[employer] Unloader: Marcelino Estes MD, Phone: [phone] Performed at: [facility] [place], [place] [id number] Director: Marcelino Estes MD, Phone: [phone] Vital Signs Date Time Vital Sign Value Performing Clinician Facility 05-31-2024 11:10-0400 Body height 172.09 cm MD Curt Clark Work Phone: [facility] 05-31-2024 11:10-0400 Body mass index (BMI) [Ratio] 67.1 kg/m2 MD Curt Clark Work Phone: [facility] 05-31-2024 11:10-0400 Body weight 199 kg MD Curt Clark Work Phone: [facility] 05-31-2024 11:10-0400 Diastolic blood pressure 63 mm[Hg] MD Curt Clark Work Phone: [facility] 05-31-2024 11:10-0400 Heart rate 68 /min MD Curt Clark Work Phone: [facility] 05-31-2024 11:10-0400 Systolic blood pressure 151 mm[Hg] MD Curt Clark Work Phone: [facility] 04-17-2024 13:55-0400 Body height 162.6 cm Elicia Rhodes MD Work Phone: [facility] 04-17-2024 13:55-0400 Body mass index (BMI) [Ratio] 34.33 kg/m2 Elicia Rhodes MD Work Phone: [facility] 04-17-2024 13:55-0400 Body weight 90.72 kg Elicia Rhodes MD Work Phone: [facility] 04-17-2024 13:55-0400 Diastolic blood pressure 66 mm[Hg] Elicia Rhodes MD Work Phone: [facility] 04-17-2024 13:55-0400 Heart rate 68 /min Elicia Rhodes MD Work Phone: [facility] 04-17-2024 13:55-0400 Systolic blood pressure 128 mm[Hg] Elicia Rhodes MD Work Phone: [facility] 04-12-2024 09:27-0400 Body height 172.09 cm MD Curt Clark Work Phone: [facility] 04-12-2024 09:27-0400 Body mass index (BMI) [Ratio] 30.4 kg/m2 MD Curt Clark Work Phone: [facility] 04-12-2024 09:27-0400 Body weight 90.03 kg MD Curt Clark Work Phone: [facility] 04-12-2024 09:27-0400 Diastolic blood pressure 77 mm[Hg] MD Curt Clark Work Phone: [facility] 04-12-2024 09:27-0400 Heart rate 65 /min MD Curt Clark Work Phone: [facility] 04-12-2024 09:27-0400 Systolic blood pressure 166 mm[Hg] MD Curt Clark Work Phone: [facility] 01-27-2024 15:01-0400 Body temperature 97.8 [degF] MD Curt Clark Work Phone: [facility] 01-27-2024 15:01-0400 Body weight 90.71 kg MD Curt Clark Work Phone: [facility] 01-27-2024 15:01-0400 Diastolic blood pressure 76 mm[Hg] MD Curt Clark Work Phone: [facility] 01-27-2024 15:01-0400 Heart rate 64 /min MD Curt Clark Work Phone: [facility] 01-27-2024 15:01-0400 Respiratory rate 16 /min MD Curt Clark Work Phone: [facility] 01-27-2024 15:01-0400 SaO2% (BldA) [Mass fraction] 99 % MD Curt Clark Work Phone: [facility] 01-27-2024 15:01-0400 Systolic blood pressure 140 mm[Hg] MD Curt Clark Work Phone: [facility] 01-04-2024 10:59-0500 Body height 167 cm MD Curt Clark Work Phone: [facility] 01-04-2024 10:59-0500 Body mass index (BMI) [Ratio] 32.5 kg/m2 MD Curt Clark Work Phone: [facility] 01-04-2024 10:59-0500 Body weight 90.88 kg MD Curt Clark Work Phone: [facility] 01-04-2024 10:59-0500 Diastolic blood pressure 77 mm[Hg] MD Curt Clark Work Phone: [facility] 01-04-2024 10:59-0500 Heart rate 71 /min MD Curt Clark Work Phone: [facility] 01-04-2024 10:59-0500 Respiratory rate 18 /min MD Curt Clark Work Phone: [facility] 01-04-2024 10:59-0500 SaO2% (BldA) [Mass fraction] 98 % MD Curt Clark Work Phone: [facility] 01-04-2024 10:59-0500 Systolic blood pressure 133 mm[Hg] MD Curt Clark Work Phone: [facility] 12-01-2023 11:00-0500 Body height 166.55 cm Curt Clark Other [facility] 12-01-2023 11:00-0500 Body mass index (BMI) [Ratio] 32.77 kg/m2 Curt Clark Other [facility] [employer] Other 12-01-2023 11:00-0500 Body weight 90.9 kg Curt Clark Other [facility] [employer] Other 12-01-2023 11:00-0500 Body weight 90.89 kg MD Curt Clark Work Phone: [facility] 12-01-2023 11:00-0500 Diastolic blood pressure 76 mm[Hg] Curt Clark Other [facility] 12-01-2023 11:00-0500 Systolic blood pressure 125 mm[Hg] Curt Clark Other [facility] 11-02-2023 10:34-0500 Body height 162.[address] 11-02-2023 10:34-0500 Body mass index (BMI) [Ratio] 33.3 kg/m2 [address] 11-02-2023 10:34-0500 Body weight [address] 11-02-2023 10:34-0500 Diastolic blood pressure 74 mm[Hg] [address] 11-02-2023 10:34-0500 Systolic blood pressure 140 mm[Hg] [address] 10-04-2023 14:04-0500 Body height 167.6 cm Elicia Rhodes MD Work Phone: [facility] 10-04-2023 14:04-0500 Body mass index (BMI) [Ratio] 31.31 kg/m2 Elicia Rhodes MD Work Phone: [facility] 10-04-2023 14:04-0500 Body weight 88 kg Elicia Rhodes MD Work Phone: [facility] 10-04-2023 14:04-0500 Diastolic blood pressure 68 mm[Hg] Elicia Rhodes MD Work Phone: [facility] 10-04-2023 14:04-0500 Heart rate 72 /min Elicia Rhodse MD Work Phone: [facility] 10-04-2023 14:04-0500 Systolic blood pressure 138 mm[Hg] Elicia Rhodes MD Work Phone: [facility] 09-26-2023 14:00-0500 Body height 166.55 cm Curt Clark Other [facility] Other 09-26-2023 14:00-0500 Body mass index (BMI) [Ratio] 31.43 kg/m2 Curt Clark Other [facility] Other 09-26-2023 14:00-0500 Body weight 87.18 kg Curt Clark Other [facility] Other 09-26-2023 14:00-0500 Diastolic blood pressure 73 mm[Hg] Curt Clark Other [facility] Other 09-26-2023 14:00-0500 SaO2% (BldA) [Mass fraction] 98 % Curt Clark Other [facility] Other 09-26-2023 14:00-0500 Systolic blood pressure 122 mm[Hg] Curt Clark Other [facility] Other 09-13-2023 15:45-0400 Body height 166.55 cm Curt Clark Other [facility] Other 09-13-2023 15:45-0400 Body mass index (BMI) [Ratio] 31.39 kg/m2 Curt Clark Other [facility] Other 09-13-2023 15:45-0400 Body temperature 97.1 [degF] Curt Clark Other [facility] Other 09-13-2023 15:45-0400 Body weight 87.09 kg Curt Clark Other [facility] Other 09-13-2023 15:45-0400 Diastolic blood pressure 75 mm[Hg] Curt Clark Other [facility] Other 09-13-2023 15:45-0400 Systolic blood pressure 148 mm[Hg] Curt Clark Other [facility] Other 08-31-2023 13:30-0400 Body height 166.55 cm Nehemias Leicester II Other [facility] Other 08-31-2023 13:30-0400 Body mass index (BMI) [Ratio] 31.56 kg/m2 Nehemias Jim II Other [facility] Other 08-31-2023 13:30-0400 Body weight 87.54 kg Nehemias Jim II Other [facility] Other 07-19-2023 10:44-0400 Body height 167.64 cm MD Curt Clark Work Phone: [facility] 07-19-2023 10:40-0400 Body temperature 97.5 [degF] MD Curt Clark Work Phone: [facility] 07-19-2023 10:40-0400 Body weight 85.95 kg MD Curt Clark Work Phone: [facility] 07-19-2023 10:40-0400 Diastolic blood pressure 69 mm[Hg] MD Curt Clark Work Phone: [facility] 07-19-2023 10:40-0400 Heart rate 79 /min MD Curt Clark Work Phone: [facility] 07-19-2023 10:40-0400 Respiratory rate 20 /min MD Curt Clark Work Phone: [facility] 07-19-2023 10:40-0400 SaO2% (BldA) [Mass fraction] 98 % MD Curt Clark Work Phone: [facility] 07-19-2023 10:40-0400 Systolic blood pressure 134 mm[Hg] MD Curt Clark Work Phone: [facility] 06-24-2023 13:30-0400 Body height 166.55 cm Curt Clark Other [facility] [employer] Other 06-24-2023 13:30-0400 Body mass index (BMI) [Ratio] 30.58 kg/m2 Curt Clark Other [facility] [employer] Other 06-24-2023 13:30-0400 Body weight 84.82 kg Curt Clark Other [facility] Other 06-24-2023 13:30-0400 Diastolic blood pressure 79 mm[Hg] Curt Clark Other [place] [employer] Other 06-24-2023 13:30-0400 SaO2% (BldA) [Mass fraction] 97 % Curt Clark Other [facility] Other 06-24-2023 13:30-0400 Systolic blood pressure 127 mm[Hg] Curt Clark Other [facility] Other 06-23-2023 11:20-0400 Body height 166.55 cm Akin Lopez Other [facility] Other 06-23-2023 11:20-0400 Body temperature 96.5 [degF] Akin Lopez Other [facility] Other 06-23-2023 11:20-0400 Diastolic blood pressure 82 mm[Hg] Akin Lopez Other [facility] Other 06-23-2023 11:20-0400 Respiratory rate 20 /min Akin Lopez Other [facility] Other 06-23-2023 11:20-0400 SaO2% (BldA) [Mass fraction] 98 % Akin Lopez Other [employer] Other 06-23-2023 11:20-0400 Systolic blood pressure 149 mm[Hg] Akin Lopez Other [facility] Other 04-26-2023 11:30-0400 Body height 166.37 cm Curt Clark Other [employer] Other 04-26-2023 11:30-0400 Body mass index (BMI) [Ratio] 31.13 kg/m2 Curt Clark Other [employer] Other 04-26-2023 11:30-0400 Body weight 86.18 kg Curt Clark Other [employer] Other 04-26-2023 11:30-0400 Diastolic blood pressure 68 mm[Hg] Curt Clark Other [facility] [employer] Other 04-26-2023 11:30-0400 Systolic blood pressure 109 mm[Hg] Curt Clark Other [facility] [employer] Other 03-23-2023 14:10-0400 Body height 167.64 cm Curt Clark Work Phone: [facility] [facility] [employer] DO Work Phone: 03-23-2023 14:10-0400 Body mass index (BMI) [Ratio] 31.15 kg/m2 Curt Clark Work Phone: [facility] [employer] 250 DO Work Phone: 03-23-2023 14:10-0400 Body surface area Derived from formula 1.97 m2 Curt Clark Work Phone: [facility] [employer] 250 DO Work Phone: 03-23-2023 14:10-0400 Body weight 87.54 kg Curt Clark Work Phone: [facility] [employer] 250 DO Work Phone: 03-23-2023 14:10-0400 Diastolic blood pressure 68 mm[Hg] Curt Clark Work Phone: [facility] [employer] 250 DO Work Phone: 03-23-2023 14:10-0400 Heart rate 68 /min Curt Clark Work Phone: [facility] 250 DO Work Phone: 03-23-2023 14:10-0400 Systolic blood pressure 102 mm[Hg] Curt Clark Work Phone: [facility] [employer] 250 DO Work Phone: 03-15-2023 12:00-0400 Body height 166.37 cm Curt Clark Other [facility] [employer] Other 03-15-2023 12:00-0400 Body mass index (BMI) [Ratio] 31.95 kg/m2 Curt Clark Other [facility] [employer] Other 03-15-2023 12:00-0400 Body weight 88.45 kg Curt Clark Other [facility] [employer] Other 03-15-2023 12:00-0400 Diastolic blood pressure 60 mm[Hg] Curt Clark Other [facility] [employer] Other 03-15-2023 12:00-0400 Systolic blood pressure 124 mm[Hg] Curt Clark Other [facility] [employer] Other 02-21-2023 11:06-0400 75.6 1 Curt Clark Work Phone: [facility] 250 DO Work Phone: Comment on above: [facility] 01-11-2023 10:37-0500 Body temperature 97.8 [degF] MD Curt Clark Work Phone: [facility] 01-11-2023 10:37-0500 Body weight 88.2 kg MD Curt Clark Work Phone: [facility] 01-11-2023 10:37-0500 Diastolic blood pressure 63 mm[Hg] MD Curt Clark Work Phone: [facility] 01-11-2023 10:37-0500 Heart rate 66 /min MD Curt Clark Work Phone: [facility] 01-11-2023 10:37-0500 Respiratory rate 16 /min MD Curt Clark Work Phone: [facility] 01-11-2023 10:37-0500 SaO2% (BldA) [Mass fraction] 97 % MD Curt Clark Work Phone: [facility] 01-11-2023 10:37-0500 Systolic blood pressure 139 mm[Hg] MD Curt Clark Work Phone: [facility] 01-10-2023 11:11-0500 Blood Pressure Location Tryee PARK [facility] 01-10-2023 11:11-0500 Diastolic blood pressure 84 mm[Hg] Tyree PARK [facility] 01-10-2023 11:11-0500 Heart rate 80 /min Tyree PARK [facility] 01-10-2023 11:11-0500 Respiratory rate 16 /min Tyree PARK [facility] 01-10-2023 11:11-0500 Systolic blood pressure 136 mm[Hg] Tyree PARK [facility] 12-22-2022 12:40-0500 Body height 166.37 cm Kain Lopez Other [employer] Other 12-22-2022 12:40-0500 Body mass index (BMI) [Ratio] 31.53 kg/m2 Akin Lopez Other [employer] Other 12-22-2022 12:40-0500 Body temperature 96.5 [degF] Akin Lopez Other [employer] Other 12-22-2022 12:40-0500 Body weight 87.27 kg Akin Lopez Other [employer] Other 12-22-2022 12:40-0500 Diastolic blood pressure 78 mm[Hg] Akin Lopez Other [employer] Other 12-22-2022 12:40-0500 Respiratory rate 18 /min Akin Lopez Other [employer] Other 12-22-2022 12:40-0500 SaO2% (BldA) [Mass fraction] 98 % Akin Lopez Other [employer] Other 12-22-2022 12:40-0500 Systolic blood pressure 122 mm[Hg] Akin Lopez Other [employer] Other 12-09-2022 11:45-0500 Body height 166.37 cm Curt Clark Other [employer] Other 12-09-2022 11:45-0500 Body mass index (BMI) [Ratio] 31.95 kg/m2 Curt Clark Other [employer] Other 12-09-2022 11:45-0500 Body weight 88.45 kg Curt Clark Other [employer] Other 12-09-2022 11:45-0500 Diastolic blood pressure 62 mm[Hg] Curt Clark Other [employer] Other 12-09-2022 11:45-0500 SaO2% (BldA) [Mass fraction] 96 % Curt Clark Other [employer] Other 12-09-2022 11:45-0500 Systolic blood pressure 128 mm[Hg] Curt Clark Other [employer] Other 07-13-2022 09:12-0400 Body weight 84.5 kg MD Curt Clark Work Phone: [facility] 07-13-2022 08:58-0400 Body height 167.64 cm MD Curt Clark Work Phone: [facility] 07-13-2022 08:58-0400 Body temperature 98.6 [degF] MD Curt Clark Work Phone: [facility] 07-13-2022 08:58-0400 Diastolic blood pressure 74 mm[Hg] MD Curt Clark Work Phone: [facility] 07-13-2022 08:58-0400 Heart rate 89 /min MD Curt Clark Work Phone: [facility] 07-13-2022 08:58-0400 Respiratory rate 18 /min MD Curt Clark Work Phone: [facility] 07-13-2022 08:58-0400 SaO2% (BldA) [Mass fraction] 97 % MD Curt Clark Work Phone: [facility] 07-13-2022 08:58-0400 Systolic blood pressure 126 mm[Hg] MD Curt Clark Work Phone: [facility] 07-07-2022 10:20-0400 Body height 167.64 cm Akin Lopez Other [employer] Other 07-07-2022 10:20-0400 Body mass index (BMI) [Ratio] 30.24 kg/m2 Akin Lopez Other [employer] Other 07-07-2022 10:20-0400 Body temperature 96.7 [degF] Akin Lopez Other [employer] Other 07-07-2022 10:20-0400 Body weight 85 kg Akin Lopez Other [employer] Other 07-07-2022 10:20-0400 Diastolic blood pressure 76 mm[Hg] Akin Lopez Other [employer] Other 07-07-2022 10:20-0400 Respiratory rate 18 /min Akin Lopez Other [employer] Other 07-07-2022 10:20-0400 SaO2% (BldA) [Mass fraction] 98 % Akin Lopez Other [employer] Other 07-07-2022 10:20-0400 Systolic blood pressure 132 mm[Hg] Akin Lopez Other [employer] Other 06-16-2022 14:48-0400 Body height 167.64 cm Curt Clark Work Phone: [facility] [employer] DO Work Phone: 06-16-2022 14:48-0400 Body mass index (BMI) [Ratio] 30.18 kg/m2 Curt Clark Work Phone: [employer] [employer] Work Phone: 06-16-2022 14:48-0400 Body surface area Derived from formula 1.94 m2 Curt Clark Work Phone: [employer] [facility] [employer] 250 DO Work Phone: 06-16-2022 14:48-0400 Body weight 84.82 kg Curt Clark Work Phone: [employer] [employer] 250 DO Work Phone: 06-16-2022 14:48-0400 Diastolic blood pressure 58 mm[Hg] Curt Clark Work Phone: [facility] [employer] 250 DO Work Phone: 06-16-2022 14:48-0400 Heart rate 70 /min Curt Patel Clark Work Phone: [facility] 250 DO Work Phone: 06-16-2022 14:48-0400 Systolic blood pressure 112 mm[Hg] Curt Patel Clark Work Phone: [facility] 250 DO Work Phone: 03-08-2022 10:57-0400 Blood Pressure Location Tyree PARK [facility] 03-08-2022 10:57-0400 Diastolic blood pressure 52 mm[Hg] Tyree PARK [facility] 03-08-2022 10:57-0400 Heart rate 69 /min Tyree PARK [facility] 03-08-2022 10:57-0400 Systolic blood pressure 113 mm[Hg] Tyree PARK [facility] 01-14-2022 13:20-0500 Body height 167.64 cm Akin Lopez Other [facility] [employer] Other 01-14-2022 13:20-0500 Body mass index (BMI) [Ratio] 30.34 kg/m2 Akin Lopez Other [employer] Other 01-14-2022 13:20-0500 Body weight 85.28 kg Akin Lopez Other [employer] Other 01-14-2022 13:20-0500 Diastolic blood pressure 86 mm[Hg] Akin Lopez Other [employer] Other 01-14-2022 13:20-0500 Respiratory rate 18 /min Akin Lopez Other [employer] Other 01-14-2022 13:20-0500 SaO2% (BldA) [Mass fraction] 99 % Akin Lopez Other [employer] Other 01-14-2022 13:20-0500 Systolic blood pressure 146 mm[Hg] Akin Lopez Other [employer] Other 09-30-2021 11:40-0500 Body height 167.64 cm Akin Lopez Other [employer] Other 09-30-2021 11:40-0500 Body mass index (BMI) [Ratio] 31.12 kg/m2 Akin Lopez Other [employer] Other 09-30-2021 11:40-0500 Body temperature 96.7 [degF] Akin Lopez Other [employer] Other 09-30-2021 11:40-0500 Body weight 87.45 kg Akin Lopez Other [employer] Other 09-30-2021 11:40-0500 Diastolic blood pressure 72 mm[Hg] Akin Lopez Other [employer] Other 09-30-2021 11:40-0500 Respiratory rate 18 /min Akin Lopez Other [employer] Other 09-30-2021 11:40-0500 SaO2% (BldA) [Mass fraction] 96 % Akin Lopez Other [place] [employer] Other 09-30-2021 11:40-0500 Systolic blood pressure 111 mm[Hg] Akin Lopez Other [employer] Other 09-22-2021 10:38-0500 89.4 1 Curt Clark Work Phone: [facility] [employer] 250 DO Work Phone: Comment on above: [facility] 08-25-2021 14:44-0400 Body height 167.64 cm Curt Clark Work Phone: [facility] [employer] 250 DO Work Phone: 08-25-2021 14:44-0400 Body mass index (BMI) [Ratio] 30.67 kg/m2 Curt Clark Work Phone: [facility] [employer] 250 DO Work Phone: 08-25-2021 14:44-0400 Body surface area Derived from formula 1.96 m2 Curt Clark Work Phone: [facility] [employer] 250 DO Work Phone: 08-25-2021 14:44-0400 Body weight 86.18 kg Curt Clark Work Phone: [facility] 250 DO Work Phone: 08-25-2021 14:44-0400 Diastolic blood pressure 74 mm[Hg] Curt Clark Work Phone: [facility] 250 DO Work Phone: 08-25-2021 14:44-0400 Heart rate 68 /min Curt Clark Work Phone: [facility] 250 DO Work Phone: 08-25-2021 14:44-0400 Systolic blood pressure 126 mm[Hg] Curt Clark Work Phone: [facility] 250 DO Work Phone: Encounters Encounter Date Encounter Type Care Provider Facility Start: 01-07-2025 ambulatory Tyree Rivers XAVIER Ulloa ty:KENYA Quevedo Start: 05-31-2024 End: 05-31-2024 ambulatory MD Curt Clark Work Phone: [facility] Work Phone: Start: 05-31-2024 End: 05-31-2024 Patient encounter procedure MD Curt Clark Work Phone: [facility] Work Phone: Start: 05-23-2024 Non-patient / Non-visit MD Shannan Clark Work Phone: [facility] [place] Work Phone: Start: 04-25-2024 ambulatory Curt Clark Facility :[facility] Start: 04-25-2024 Registered Recurring MD Curt Clark Work Phone: [facility] Work Phone: Start: 04-17-2024 End: 04-17-2024 Office outpatient visit 25 minutes Elicia Rhodes MD Work Phone: [facility] Comment on above: Essential hypertensi on (Primary Dx); Persistent atrial fibrillation with RVR (Multi); Aortic valve regurgitation, nonrheumatic; Ascending aorta dilation (CMS-HCC); Mixed hyperlipidemia; Pulmonary hypertension (Multi); Stage 3a chronic kidney disease (Multi); Multiple myeloma, remission status unspecified (Multi); Shortness of breath at rest; BMI 34.0-34.9,adult; Never smoked tobacco Start: 04-17-2024 End: 04-17-2024 ambulatory ELICIA RHODES [facility] Ambulatory Start: 04-12-2024 End: 04-12-2024 Departed Referred MD Curt Clark Work Phone: [facility] [place] Work Phone: Start: 04-12-2024 End: 04-12-2024 ambulatory MD Curt Clark Work Phone: [facility] Work Phone: Start: 04-12-2024 End: 04-12-2024 Patient encounter procedure MD Curt Clark Work Phone: [facility] Work Phone: Start: 03-14-2024 End: 03-14-2024 ambulatory ARTEMIO NICCI Not Available Start: 02-28-2024 Registered Recurring MD Curt Clark [facility] Work Phone: Start: 02-15-2024 Non-patient / Non-visit MD Shannan Clark Work Phone: [facility] Work Phone: Start: 01-27-2024 End: 01-27-2024 ambulatory MD Curt Clark Work Phone: [facility] Work Phone: Start: 01-27-2024 End: 01-27-2024 Patient encounter procedure MD Curt Clark Work Phone: [facility] Work Phone: Start: 01-27-2024 Registered Recurring MD Curt Clark [facility] Work Phone: Start: 01-09-2024 End: 01-10-2024 ambulatory Tyree PARK Facility: [facility] Start: 01-04-2024 End: 01-04-2024 ambulatory MD Curt Clark Work Phone: [facility] Work Phone: Start: 01-04-2024 End: 01-04-2024 Patient encounter procedure MD Curt Clark Work Phone: [facility] Neph[facility] Work Phone: Start: 12-27-2023 Non-patient / Non-visit MD Shannan Clark Work Phone: [facility] Work Phone: Start: 12-15-2023 Registered Recurring MD Curt Clark Work Phone: [facility] Work Phone: Start: 12-02-2023 End: 12-02-2023 ambulatory Curt Clark Other [employer] Other Start: 12-02-2023 Telephone encounter Curt Clark [facility] Start: 12-01-2023 End: 12-01-2023 ambulatory Curt Clark Other [employer] Other Start: 12-01-2023 Office outpatient vi sit 25 minutes Curt Clark [facility] Start: 12-01-2023 End: 12-01-2023 Patient encounter procedure MD Curt Clark Work Phone: [facility]- Start: 11-02-2023 End: 11-03-2023 ambulatory [facility] Start: 11-02-2023 End: 11-02-2023 Subsequent hospital visit by physician Joid Wolf Echo/Vasc Room 2 [facility] Comment on above: Aortic valve regurgi tation, nonrheumatic; Ascending aorta dilation (CMS/HCC); Pulmonary hypertension (CMS/HCC) Start: 10-17-2023 End: 10-17-2023 ambulatory Curt Clark Other [employer] Other Start: 10-17-2023 Telephone encounter Curt Clark [facility] Start: 10-13-2023 End: 10-13-2023 ambulatory Curt Clark Other [employer] Other Start: 10-13-2023 Telephone encounter Curt Clark [facility] Start: 10-04-2023 End: 10-04-2023 Office outpatient visit 25 minutes Elicia Rhodes MD Work Phone: [facility] Comment on above: Persistent atrial fi brillation with RVR (CMS/HCC) (Primary Dx); Aortic valve regurgitation, nonrheumatic; Ascending aorta dilation (CMS/HCC); Essential hypertension; Pulmonary hypertension (CMS/HCC); Stage 3a chronic kidney disease (CMS/HCC) Start: 10-04-2023 End: 10-04-2023 ambulatory [facility] Ambulatory Start: 09-26-2023 End: 09-26-2023 ambulatory Curt Clark Other [employer] Other Start: 09-26-2023 Office outpatient vi sit 15 minutes Curt Calrk [facility] Start: 09-13-2023 End: 09-13-2023 ambulatory Curt Clark Other [employer] Other Start: 09-13-2023 Office outpatient vi sit 15 minutes Curt Clark [facility] Start: 08-31-2023 Office outpatient ne w 45 minutes Nehemias Fernandez II [facility] Start: 08-31-2023 End: 08-31-2023 ambulatory MD Curt Clark Work Phone: [facility] Work Phone: Start: 08-31-2023 End: 08-31-2023 Patient encounter procedure MD Curt Clark Work Phone: [facility] [place] [facility] Start: 07-21-2023 Rx Renewal Curt Clark Work Phone[facility] DO Work Phone: Start: 07-19-2023 End: 07-19-2023 ambulatory MD Curt Clark Work Phone: [facility] Work Phone: Start: 07-19-2023 End: 07-19-2023 Registered Recurring MD Curt Clark [facility] Work Phone: Start: 07-19-2023 Registered Recurring MD Curt Clark [facility] Work Phone: Start: 07-15-2023 End: 07-15-2023 ambulatory Curt Clark Other [employer] Other Start: 07-15-2023 Telephone encounter Curt Clark [facility] Start: 07-08-2023 End: 07-08-2023 ambulatory Curt Clark Other [employer] Other Start: 07-08-2023 Telephone encounter Curt Clark [facility] Start: 07-04-2023 Rx Renewal Curt Clark Work Phone: [facility] DO Work Phone: Start: 06-27-2023 End: 06-27-2023 ambulatory Curt Clark Other [employer] Other Start: 06-27-2023 Telephone encounter Curt Clark [facility] Start: 06-24-2023 End: 06-24-2023 ambulatory Curt Clark Other [employer] Other Start: 06-24-2023 Office outpatient vi sit 25 minutes Curt Clark [facility] Start: 06-23-2023 End: 06-23-2023 ambulatory Akin Lopez Other [employer] Other Start: 06-23-2023 Office outpatient vi sit 15 minutes Akin Lopez [facility] Start: 06-20-2023 End: 06-20-2023 ambulatory Curt Clark Other [employer] Other Start: 06-20-2023 Telephone encounter Curt Clark [facility] Start: 06-13-2023 Rx Renewal Curt Clark Work Phone: [facility] 250 DO Work Phone: Start: 05-04-2023 End: 05-04-2023 ambulatory Curt Clark Other [employer] Other Start: 05-04-2023 Telephone encounter Curt Clark [facility] Start: 04-26-2023 End: 04-26-2023 ambulatory Curt Clark Other [employer] Other Start: 04-26-2023 Office outpatient vi sit 25 minutes Curt Clark [facility] Start: 03-23-2023 Office outpatient vi sit 25 minutes Curt Clark Work Phone: [facility] 250 DO Work Phone: Start: 03-23-[address] Curt Clark Facility: Start: 03-16-2023 Telephone encounter Crut Clark [facility] Start: 03-16-2023 End: 03-17-[address] CURT CLARK [employer] Other Start: 03-15-2023 End: 03-15-2023 ambulatory Curt Clark Other [employer] Other Start: 03-15-2023 Office outpatient vi sit 15 minutes Curt Clark [facility] Start: 02-21-2023 End: 02-22-[address] ELICIA RHODES Facility:[facility]1 Start: 01-11-2023 End: 01-11-2023 ambulatory MD Curt Clark Work Phone: [facility] Work Phone: Start: 01-11-2023 End: 01-11-2023 Registered Recurring MD Curt Clark [facility] Work Phone: Start: 01-10-2023 End: 01-10-2023 Patient encounter procedure [facility]ARK [facility] Start: 01-06-2023 End: 01-07-[address] CURT CLARK Facility:[facility]1 Start: 12-22-2022 End: 12-22-2022 ambulatory Akin Lopez Other [employer] Other Start: 12-22-2022 Office outpatient vi sit 25 minutes Akin Lopez [facility] Start: 12-14-2022 End: 12-15-2022 ambulatory AKIN LOPEZ Facility:[facility] Start: 12-09-2022 End: 12-09-2022 ambulatory Curt Clark Other [employer] Other Start: 12-09-2022 Office outpatient vi sit 25 minutes Curt Clark [facility] Start: 08-09-[address] CURT CLARK Facil ity:H1 Start: 07-13-2022 End: 07-13-2022 Registered Recurring MD Curt Clark [facility] [place] [facility] Start: 07-12-2022 End: 07-13-2022 ambulatory CLAIRE CHOI Facility:[facility] Start: 07-07-2022 End: 07-07-2022 ambulatory Akin Lopez Other [employer] Other Start: 07-07-2022 Office outpatient vi sit 25 minutes Akin Lopez [facility] Start: 06-30-2022 End: 07-01-2022 ambulatory AKIN LOPEZ Facility:[facility] Start: 06-16-2022 Office outpatient vi sit 25 minutes Curt Clark Work Phone: [facility] 250 DO Work Phone: Start: 06-16-[address] Elicia Rhodes Facility:[id number] Start: 05-28-2022 End: 05-29-[address] CURT CLARK Facility:[facility]1 Start: 05-25-2022 End: 05-25-[address] CURT CLARK Facility:[facility]1 Start: 05-21-2022 End: 05-21-[address] CURT CLARK Facility:[facility]1 Start: 04-14-2022 End: 04-15-[address] CURT CLARK Facility:[facility]1 Start: 04-07-2022 End: 04-08-2022 ambulatory ZO SOLER Facility:[facility] Start: 03-08-2022 End: 03-08-2022 Patient encounter procedure Tyree PARK [facility] Start: 02-25-2022 Rx Renewal Curt Clark Work Phone: [employer] DO Work Phone: Start: 02-23-2022 End: 02-23-2022 ambulatory Akin Lopez Other [employer] Other Start: 02-23-2022 Telephone encounter Akin Lopez [facility] Start: 01-14-2022 End: 01-14-2022 ambulatory Akin Lopez Other [employer] Other Start: 01-14-2022 Office outpatient vi sit 25 minutes Akin Lopez [facility] Start: 10-12-2021 Rx Renewal Curt Clark Work Phone: [employer] 250 DO Work Phone: Start: 09-30-2021 End: 09-30-2021 ambulatory Akin Lopez Other [employer] Other Start: 09-30-2021 Office outpatient vi sit 25 minutes Akin Lopez [facility] Start: 09-30-2021 Telephone encounter Akin Lopez [facility] Start: 08-25-2021 Office outpatient vi sit 25 minutes Curt Clark Work Phone: [facility] 250 DO Work Phone: Start: 07-02-2021 End: 07-02-2021 ambulatory Quita Ayon Other [facility] [employer] Other Start: 07-02-2021 Telephone encounter Quita Ayon [facility] Procedures Date Procedure Procedure Detail Performing Clinician Start: 04-12-2024 Urine culture MD Curt Clark Work Phone: Start: 11-02-2023 TRANSTHORACIC ECHO ( TTE) COMPLETE ELICIA RHODES Start: 11-02-2023 Echo tthrc r-t 2d w/ wom-mode compl spec&colr d Elicia Rhodes MD Work Phone: Start: 10-04-2023 ECG 12-LEAD ELICIA TR ABOULSSI Start: 10-04-2023 Ecg routine ecg w/le ast 12 lds w/i&r Elicia Rhodes MD Work Phone: Start: 02-24-2021 Urine culture MD Curt Clark Work Phone: Start: 02-19-2021 Lithotripsy Tyree CYNDI TERS Start: 02-13-2020 Urine culture MD Curt Clark Work Phone: Start: 01-24-2020 Extracorporeal shock wave lithotripsy of [...] Anika Clark Work Phone: Cataract surgery Curt Sanchez aun Work Phone: Cholecystectomy Tyree HALLIE NICHOLSON Excision of ganglion of wrist Tyree PARK Hemorrhoidectomy Curt Sanchez aun Work Phone: Hemorrhoidectomy Tyree FARHANA HUTCHINSON Hysterectomy Curt Clark Work Phone: Hysterectomy Tyree PARK Lithotripsy Curt Clark Work Phone: Operative procedure on foot Curt Clark Work Phone: Urine culture MD Curt forde Work Phone: Plan of Treatment Date Care Activity Detail Author Start: 10-15-2024 End: 10-15-2024 Patient encounter procedure 10/15/2024 11:20 AM EST Office Visit [facility] [address] [address] Elicia Rhodes MD 703 [facility] 2, [address] [address] [facility] Start: 07-15-2024 Influenza vaccination Influenz a Vaccine (Season Ended) [facility] Start: 04-17-2024 End: 04-17-2025 Lipid 1996 panel - Serum or Plasma Lipid Panel Lab Routine Mixed hyperlipidemia Expected: 04/17/2024 (Approximate), Expires: 04/17/2025 [facility] Work Phone: Comment on above: Expected: 04/17/2024 (Approximate), Expires: 04/17/2025 Start: 04-17-2024 End: 04-17-2024 Patient encounter procedure 04/17/2024 1:40 PM EDT Office Visit [facility] [address] [facility] [address] [place] [address] Elicia Rhodes MD [address] [place] [address] [facility] Start: 04-13-2024 Bacteria identified in Urine by Culture [facility] Start: 04-12-2024 Bacteria identified in Urine by Culture [facility] Start: 11-08-2023 Glaucoma screening Diabetes: R etinopathy Screening [facility] Start: 11-02-2023 End: 11-02-2023 Patient encounter procedure 11/02/2023 10:45 AM EST Appointment [facility] [address] [facility] [address] [place] [address] [facility] Start: 10-04-2023 FUV, Provider: Elicia Rhodes, Status: Pen, Time: 2:10 PM FUV, Provider: Elicia Rhodes, Status: Pen, Time: 2:10 PM [facility] DO Work Phone: Start: 10-04-2023 End: 10-04-2025 Heart Transthoracic Transthoracic Echo (TTE) Complete Echocardiography Routine Aortic valve regurgitation, nonrheumatic Ascending aorta dilation (CMS/HCC) Pulmonary hypertension (CMS/HCC) Expected: 10/04/2023 (Approximate), Expires: 10/04/2025 [facility] Work Phone: Comment on above: Expected: 10/04/2023 (Approximate), Expires: 10/04/2025 Start: 07-19-2023 [facility] Start: 07-15-2023 Influenza vaccination Influenza Vacc ine (#1) [facility] Start: 03-23-2023 FUV, Provider: Elicia Rhodes, Status: Pen, Time: 2:20 PM FUV, Provider: Elicia Rhodes, Status: Pen, Time: 2:20 PM [facility] DO Work Phone: Start: 01-04-2023 [facility] Start: 08-23-2022 [facility] Start: 08-17-2022 End: 08-17-2022 [facility] Start: 07-13-2022 [facility] Start: 06-28-2022 [facility] Start: 05-31-2022 [facility] Start: 05-26-2022 [facility] Start: 05-25-2022 FUV, Provider: Elicia Rhodes, Status: Pen, Time: 2:20 PM [facility] DO Work Phone: Start: 04-13-2022 [facility] Start: 03-02-2022 [facility] Start: 01-18-2022 [facility] Start: 01-18-2022 [facility] Start: 01-18-2022 End: 01-18-2022 [facility] Start: 01-18-2022 [facility] Start: 01-11-2022 [facility] Start: 12-23-2021 [facility] Start: 12-23-2021 [facility] Start: 11-03-2021 [facility] Start: 10-06-2021 [facility] Start: 09-08-2021 [facility] Start: 08-25-2021 [facility] Start: 08-11-2021 [facility] Start: 08-11-2021 [facility] Start: 07-14-2021 [facility] Start: 07-14-2021 [facility] Start: 07-09-2021 End: 07-09-2021 [facility] Start: 06-16-2021 [facility] Start: 05-19-2021 End: 05-19-2021 [facility] Start: 05-19-2021 [facility] Start: 04-21-2021 [facility] Start: 04-09-2021 [facility] Start: 03-24-2021 [facility] Start: 02-24-2021 [facility] Start: 01-12-2021 End: 01-12-2021 [facility] Start: 01-06-2021 [facility] Start: 01-01-2021 [facility] Start: 12-02-2020 [facility] Start: 11-04-2020 [facility] Start: 10-07-2020 [facility] Start: 09-09-2020 [facility] Start: 08-12-2020 [facility] Start: 07-15-2020 [facility] Start: 06-17-2020 [facility] Start: 05-20-2020 [facility] Start: 04-16-2020 [facility] Start: 03-19-2020 [facility] Start: 01-09-2020 [facility] Start: 01-09-2020 [facility] Start: 01-03-2020 [facility] Start: 11-27-2019 End: 11-28-2019 [facility] Start: 10-29-2019 [facility] Start: 10-17-2019 [facility] Start: 09-05-2019 [facility] Start: 09-05-2019 [facility] Start: 07-25-2019 [facility] Start: 07-25-2019 [facility] Start: 06-13-2019 [facility] Start: 06-13-2019 [facility] Start: 05-02-2019 [facility] Start: 04-04-2019 [facility] Start: 03-07-2019 [facility] Start: 02-07-2019 [facility] Start: 01-10-2019 [facility] Start: 11-15-2018 [facility] Start: 10-18-2018 [facility] Start: 09-20-2018 [facility] Start: 08-23-2018 [facility] Start: 07-12-2018 [facility] Start: 06-14-2018 [facility] Start: 05-18-2018 [facility] Start: 05-09-2018 [facility] Start: 04-19-2018 [facility] Start: 03-22-2018 [facility] Start: 02-15-2018 [facility] Start: 01-18-2018 [facility] Start: 12-21-2017 [facility] Start: 08-24-2017 [facility] Start: 07-27-2017 [facility] Start: 2002 RSV patient s and/or patients aged 60+ years (1 - 1-dose 60+ series) RSV patients and/or patients aged 60+ years (1 - 1-dose 60+ series) [facility] Start: 1964 DTaP/Tdap/Td Vaccine s (1 - Tdap) DTaP/Tdap/Td Vaccines (1 - Tdap) [facility] Start: 1961 Urine screening for protein Diabetes: Urine Protein Screening [facility] Start: 1961 Zoster Vaccines (1 o f 2) Zoster Vaccines (1 of 2) [facility] Start: 1952 Diabetic foot examination Diabetes: Foot Exam [facility] Start: 1948 Pneumococcal Vaccine : 65+ Years (1 - PCV) Pneumococcal Vaccine: 65+ Years (1 - PCV) [facility] Start: 1948 Pneumococcal Vaccine : 65+ Years (1 of 2 - PCV) Pneumococcal Vaccine: 65+ Years (1 of 2 - PCV) [facility] Start: 1947 COVID-19 Vaccine (#1) COVID-19 Vacci ne (#1) [facility] Start: 1942 Hemoglobin A1c measurement Diabetes: Hemoglobin A1C [facility] Start: 1942 Lipid panel Lipid Panel [facility] Start: 1942 Medicare Annual Wellness Visit Medicare Annual Wellness Visit (AWV) [facility] Start: 1942 Yearly Adult Physical Yearly Adult P hysical [facility] Comprehensive metabo lic 1999 panel - Serum or Plasma [facility] Work Phone: Comprehensive metabo lic 1999 panel - Serum or Plasma [facility] Comprehensive metabo lic 1999 panel - Serum or Plasma [facility] Comprehensive metabo lic 1999 panel - Serum or Plasma [facility] DXA Skeletal system.axial Views for bone density [facility] Work Phone: DXA Skeletal system.axial Views for bone density [facility] Radiologic examinati on osseous survey compl [facility] Work Phone: Radiologic examinati on osseous survey compl [facility] Radiologic examinati on osseous survey [facility] Renal function 1999 panel - Serum or Plasma [facility] End: 11-02-2023 [facility] Transthoracic [facility] Service Area Work Phone: Comment on above: Once for 1 Occurrenc es starting 11/02/2023 until 11/02/2023 [facility] Payers Date Payer Category Payer Unknown [id number] 2021 Medicare [id number] 2010 Unknown 2010 Unknown [id number] 2007 Medicare MEDICARE MEDICAR E PART A AND B [id number] 2007-Present [address] [place] [address] [id number] 1959 Medicare [id number] 1959 Self-pay [id number] 1959 Unknown [id number] 2.16.8 [id number] 1942 Unknown [id number] 2.16.840.1.612173.3.579.2.593 1942 Unknown [id number] 2.16.840.1.991075.3.579.2.593 1942 Unknown [id number] 2.16.840.1.386982.3.579.2.593 1942 Unknown [id number] 2.16.840.1.628318.3.579.2.593 1942 Unknown [id number] 2.16.840.1.190687.3.579.2.593 1942 Unknown [id number] 2.16.840.1.227660.3.579.2.593 1942 Unknown [id number] 2.16.840.1.709908.3.579.2.593 1942 Unknown [id number] 2.16.840.1.606297.3.579.2.593 1942 Unknown [id number] 2.16.840.1.613353.3.579.2.593 1942 Unknown [id number] 2.16.840.1.011689.3.579.2.593 1942 Unknown [id number] 2.16.840.1.385879.3.579.2.593 1942 Unknown [id number] 2.16.840.1.241916.3.579.2.593 1942 Unknown [id number] 2.16.840.1.131442.3.579.2.593 1942 Unknown [id number] 2.16.840.1.338440.3.579.2.593 1942 Unknown [id number] 2.16.840.1.580420.3.579.2.356 1942 Unknown [id number] 2.16.840.1.792244.3.579.2.356 1942 Unknown [id number] 2.16.840.1.840877.3.579.2.1246 1942 Unknown [id number] 2.16.840.1.475562.3.579.2.727 1942 Unknown [id number] 2.16.840.1.818264.3.579.2.727 1942 Unknown [id number] 2.16.840.1.193711.3.579.2.727 1942 Unknown [id number] 2.16.840.1.790683.3.579.2.1259 1942 Unknown [id number] 2.16.840.1.546861.3.579.2.1244 1942 Unknown [id number] 2.16.840.1.893433.3.579.2.1244 Unknown [id number] 2.16.840.1.795773.3.579.2.593 Unknown [id number] 2.16.840.1.915911.3.579.2.531 Unknown [id number] 2.16.840.1.593111.3.579.2.531 Social History Date Type Detail Facility Start: 10-04-2023 End: 04-17-2024 Daily caffeine consumption, 2-3 servings a day Daily caffeine consumption, 2-3 servings a day [facility] 250 DO Work Phone: Start: 01-26-2020 End: 03-08-2022 Tobacco smoking status Never smoked tobacco (finding) [facility] Tobacco smoking status Never [facility] Start: 10-04-2023 End: 04-17-2024 Sex Ass[address] Female [facility] Other Start: 1940 Sex Assigned At Female F [facility] Start: 10-04-2023 Tobacco use and exposure Smokeless tobacco non-user [facility] Work Phone: Start: 10-04-2023 End: 04-17-2024 Alcohol intake Lifetime non-drinker (finding) [facility] Work Phone: Start: 1940 [facility] Start: 09-24-2023 End: 04-17-2024 Exposure to SARS-CoV-2 (event) Not sure [facility] Medical Equipment Procedure Code Equipment Code Equipment Origin al Text Equipment Identifier Dates Lancets 100 pack Start: 07-10-2018 Functional Status Date Assessment Result Facility 01-10-2023 Functional Status N/A [facility] Clinical Notes 07-27-2017 to 04-17-2024 Elicia Rhodes MD - 04/17/2024 1:40 PM EDTDaisy Mane LPN - 04/17/2024 1:40 PM EDTPatient InstructionsAttachments Note Date & Type Note Facility 04-17-2024 History of Present illness Narrative Grzegorz Trivedi is a 83 y.o. female Chief Complaint Follow-up HPI Patient is here for follow-up continue management for persistent atrial fibrillation, hypertension, hyperlipidemia. On long-term anticoagulation. Since last time I saw her she denies any change in cardiac status or symptoms. She describes symptom fatigue and tiredness. She admits to difficulty with ambulation mainly due to arthritis. Recent laboratory data noted and reviewed with her. She is tolerating anticoagulation without any side effect. She had 1 brief episode of recurrence of atrial fibrillation lasted few hours but none since then. ASSESSMENT: 1. Persistent atrial fibrillation. Currently in normal sinus rhythm. Currently on Xarelto with appropriate dose based on renal function. She had 1 brief episode of breakthrough arrhythmia recently 2. Remote evaluation for chest pain, resolved. No recurrence. She did have noninvasive assessment at [facility], which was negative. Couple of years ago. She declined stress testing in the past 3. Hypertension, controlled. 4. Hyperlipidemia, on atorvastatin and fish oil. No recent lab available 5. Chronic kidney disease. Approaching stage IV 6. Multiple myeloma. Patient report in remission 7. Prior presentation with cerebellar infarct. Currently on aspirin and Xarelto and followed by neurology 8. Moderate aortic regurgitation no recent echo recent echo noted 9. Moderate obesity with mild weight gain recently 10.There had been some notation in the chart that she had dilated aortic root. Recent echo showed aortic root 2.7 cm Plan 1. I discussed with the patient the possibility of Watchman device but she declined. 2. Risk, benefit alternative anticoagulation reviewed with patient at great length she understood and agreed 3. I advised her to notify me if she had any bleeding 4. I reviewed with her her recent lab work and advised her to have a fasting lipid profile 5. I advised her to continue her efforts to lose weight and exercise 6. We discussed stress testing again but the patient declined 7. I reviewed with her her recent echo Review of Systems Constitutional: Positive for malaise/fatigue. Cardiovascular: Positive for dyspnea on exertion. Neurological: Positive for light-headedness. All other systems reviewed and are negative. Vitals: 04/17/24 1355 BP: 128/66 BP Location: Left arm Patient Position: Sitting Pulse: 68 Weight: 90.7 kg (200 lb) Height: 1.626 m (5' 4 ) Objective Physical Exam Constitutional: Appearance: Normal appearance. HENT: Nose: Nose normal. Neck: Vascular: No carotid bruit. Cardiovascular: Rate and Rhythm: Normal rate. Pulses: Normal pulses. Heart sounds: Murmur heard. Diastolic murmur is present with a grade of 2/4. Pulmonary: Effort: Pulmonary effort is normal. Abdominal: General: Bowel sounds are normal. Palpations: Abdomen is soft. Musculoskeletal: General: Normal range of motion. Cervical back: Normal range of motion. Right lower leg: No edema. Left lower leg: No edema. Skin: General: Skin is warm and dry. Neurological: General: No focal deficit present. Mental Status: She is alert. Psychiatric: Mood and Affect: Mood normal. Behavior: Behavior normal. Thought Content: Thought content normal. Judgment: Judgment normal. Allergies Oxybutynin Current Medications Current Outpatient Medications: acyclovir (Zovirax) 400 mg tablet, Take 1 tablet (400 mg) by mouth 2 times a day., Disp: , Rfl: amLODIPine (Norvasc) 5 mg tablet, Take 1 tablet (5 mg) by mouth once daily. (Patient taking differently: Take 1 tablet (5 mg) by mouth if needed.), Disp: 30 tablet, Rfl: 11 aspirin 81 mg EC tablet, Take 1 [...] 1 tablet (25 mcg) by mouth once daily., Disp: , Rfl: fish oil concentrate (Seattle-3) 120-180 mg capsule, Take 1 capsule (1 g) by mouth 2 times a day., Disp: , Rfl: insulin NPH, Isophane, (HumuLIN N,NovoLIN N) 100 unit/mL injection, Inject 15 Units under the skin once daily in the morning. Take as directed per insulin instructions., Disp: , Rfl: sodium citrate-citric acid (Oracit) 490-640 mg/5 mL solution, Take by mouth once daily., Disp: , Rfl: Xarelto 15 mg tablet, TAKE 1 TABLET DAILY, Disp: 90 tablet, Rfl: 3 Assessment/Plan 1. Essential hypertension 2. Persistent atrial fibrillation with RVR (Multi) Follow Up In Cardiology Follow Up In Cardiology 3. Aortic valve regurgitation, nonrheumatic Follow Up In Cardiology 4. Ascending aorta dilation (CMS-HCC) Follow Up In Cardiology 5. Mixed hyperlipidemia Lipid Panel Lipid Panel 6. Pulmonary hypertension (Multi) 7. Stage 3a chronic kidney disease (Multi) 8. Multiple myeloma, remission status unspecified (Multi) 9. Shortness of breath at rest 10. BMI 34.0-34.9,adult 11. Never smoked tobacco Scribe Attestation By signing my name below, Daisy Escobedo Scribe attest that this documentation has been prepared under the direction and in the presence of Elicia Rhodes MD. Provider Attestation - Scribe documentation All medical record entries made by the Scribe were at my direction and personally dictated by me. I have reviewed the chart and agree that the record accurately reflects my personal performance of the history, physical exam, discussion and plan. Grzegorz Trivedi is a 83 y.o. female Chief Complaint Follow-up HPI ASSESSMENT: 1. Persistent atrial fibrillation. Currently in normal sinus rhythm. Currently on Xarelto with appropriate dose based on renal function 2. Remote evaluation for chest pain, resolved. No recurrence. She did have noninvasive assessment at [facility], which was negative. Couple of years ago. [...] Watchman device but she declined. For cost issue I suggested to her to consider switching to [...] and her aortic root Review of Systems Constitutional: Positive for malaise/fatigue. Cardiovascular: Positive for dyspnea on exertion. Neurological: Positive for light-headedness. All other systems reviewed and are negative. Vitals: 04/17/24 1355 BP: 128/66 BP Location: Left arm Patient Position: Sitting Pulse: 68 Weight: 90.7 kg (200 lb) Height: 1.626 m (5' 4 ) Objective Physical Exam Constitutional: Appearance: Normal appearance. HENT: Nose: Nose normal. Neck: Vascular: No carotid bruit. Cardiovascular: Rate and Rhythm: Normal rate. Pulses: Normal pulses. Heart sounds: Normal heart sounds. Pulmonary: Effort: Pulmonary effort is normal. Abdominal: General: Bowel sounds are normal. Palpations: Abdomen is soft. Musculoskeletal: General: Normal range of motion. Cervical back: Normal range of motion. Right lower leg: No edema. Left lower leg: No edema. Skin: General: Skin is warm and dry. Neurological: General: No focal deficit present. Mental Status: She is alert. Psychiatric: Mood and Affect: Mood normal. Behavior: Behavior normal. Thought Content: Thought content normal. Judgment: Judgment normal. Allergies Oxybutynin Current Medications Current Outpatient Medications: acyclovir (Zovirax) 400 mg tablet, Take 1 tablet (400 mg) by mouth 2 times a day., Disp: , Rfl: amLODIPine (Norvasc) 5 mg tablet, Take 1 tablet (5 mg) by mouth once daily. (Patient taking differently: Take 1 tablet (5 mg) by mouth if needed.), Disp: 30 tablet, Rfl: 11 aspirin 81 mg EC tablet, Take 1 [...] 1 tablet (25 mcg) by mouth once daily., Disp: , Rfl: fish oil concentrate (Seattle-3) 120-180 mg capsule, Take 1 capsule (1 g) by mouth 2 times a day., Disp: , Rfl: insulin NPH, Isophane, (HumuLIN N,NovoLIN N) 100 unit/mL injection, Inject 15 Units under the skin once daily in the morning. Take as directed per insulin instructions., Disp: , Rfl: sodium citrate-citric acid (Oracit) 490-640 mg/5 mL solution, Take by mouth once daily., Disp: , Rfl: Xarelto 15 mg tablet, TAKE 1 TABLET DAILY, Disp: 90 tablet, Rfl: 3 Assessment/Plan 1. Essential hypertension 2. Persistent atrial fibrillation with RVR (Multi) Follow Up In Cardiology 3. Aortic valve regurgitation, nonrheumatic Follow Up In Cardiology 4. Ascending aorta dilation (CMS-HCC) Follow Up In Cardiology 5. Mixed hyperlipidemia 6. Pulmonary hypertension (Multi) 7. Stage 3a chronic kidney disease (Multi) 8. Multiple myeloma, remission status unspecified (Multi) 9. Shortness of breath at rest 10. BMI 34.0-34.9,adult 11. Never smoked tobacco Scribe Attestation By signing my name below, I, Daisy Parker LPN , Mesfin attest that this documentation has been prepared under the direction and in the presence of Elicia Rhodes MD. Provider Attestation - Scribe documentation All medical record entries made by the Scribe were at my direction and personally dictated by me. I have reviewed the chart and agree that the record accurately reflects my personal performance of the history, physical exam, discussion and plan. documented in this encounter [facility] Work Phone: 04-17-2024 Instructions Daisy Mane LPN - 04/17/2024 1:40 PM EDT Please bring all medicines, vitamins, and herbal supplements with you when you come to the office. Prescriptions will not be filled unless you are compliant with your follow up appointments or have a follow up appointment scheduled as per instruction of your physician. Refills should be requested at the time of your visit. BMI was above normal measurement. Current weight: 90.7 kg (200 lb) Weight change since last visit (-) denotes wt loss 6 lbs Weight loss needed to achieve BMI 25: 54.7 Lbs Weight loss needed to achieve BMI 30: 25.6 Lbs Provided instructions on dietary changes. The following attachments cannot be sent through Care Everywhere.Diet and health (Slovak)documented in this encounter [facility] Work Phone: 12-01-2023 Evaluation note Encounter Date Diagnosis Assessment [...] kidney disease (ICD-10 - N18.4) Let her community development worker know that she is having trouble affording the oracit. Will see him as scheduled on 12/05. 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 Had treated neck in the past. Pt tolerated well. [facility] Other 12-04-2023 Evaluation note* Encounter Date Diagnosis Assessment Notes Treatment Notes Treatment Clinical Notes Oct, Type 2 diabetes mellitus with hyperglycemia (ICD-10 - E11.65) [facility] Other 11-30-2023 Evaluation note* Encounter Date Diagnosis Assessment Notes Treatment Notes Treatment Clinical Notes Sep, Type 2 diabetes mellitus with hyperglycemia (ICD-10 - E11.65) [facility] Other 11-21-2023 History of Present illness Narrative* [...] recurrence. She did have noninvasive assessment at [facility], which was negative. Couple of years ago. [...] once daily.,Disp: , Rfl: fish oil concentrate (Seattle-3) 120-180 mg capsule, Take 1 capsule (1 [...] chronic kidney disease (CMS/HCC) documented in this [facility] Work Phone: 1(828) 316-465211-21-2023 Instructions* Patient Instructions* Daisy Mane LPN - [...] Follow up 6 months [facility] Work Phone: 1(411) 107-146511-13-2023 Evaluation note* Encounter Date Diagnosis Assessment Notes Treatment Notes Treatment Clinical Notes Sep, Bronchitis (ICD-10 - J40) Discussed diagnosis with patient. Finish entire course of antibiotic. Tessalon Pearles ordered to take as needed for cough. Increase fluids and rest. Qzml-ots-rwbzhfi antipyretics as needed. Warning signs and symptoms reviewed with patient today. Patient to go immediately to the ER should she experience any of these. Patient to notify office should her symptoms persist and not improve. Patient verbalizes understanding and agrees to treatment plan. [facility] Other 10-31-2023 Evaluation note* Encounter Date Diagnosis Assessment Notes Treatment Notes Treatment Clinical Notes Aug, Lumbar pain (ICD-10 - M54.50) Hx of falls - will check lumbar XR to r/o fracture Aug, Left flank pain (ICD-10 - R10.9) r/o nephrolith Aug, Bronchitis (ICD-10 - J40) Finish antibiotics. Take prednisone. Understands it will increase her glucose. [facility] Other 10-18-2023 Evaluation note* Encounter Date Diagnosis Assessment Notes Treatment Notes Treatment Clinical Notes Aug, Acute pain of left knee (ICD-10 - M25.562) Aug, Other Patient's not having any pain today. At this point she can call me in the future if she needs me [facility] Other 08-11-2023 Evaluation note* Encounter Date Diagnosis Assessment Notes Treatment Notes Treatment Clinical Notes Jun, UTI symptoms (ICD-10 - R39.9) Will treat empirically as she is unable to provide a sample today. Jun, Weakness (ICD-10 - R53.1) Agrees to for PT and possible help with medications. Jun, Balance disorder (ICD-10 - R26.89) as above [facility] Other 08-10-2023 Evaluation note* Encounter Date Diagnosis [...] sugars are above the goal. Continue follow-up [facility] PCP for diabetes mellitus management. She is [...] to the CKD. Continue oral sodium bicarbonate. [facility] Other 06-13-2023 Evaluation note* Encounter Date Diagnosis Assessment Notes Treatment Notes Treatment Clinical Notes Apr, Vasovagal syncope (ICD-10 - R55) Nearly passed out in office, BP down to 90/58. Staff helped her to friends car. Report called to Dr. Agudelo at [facility] ER. Likely due to taking bp med again, when her psych tech has d/c it. Pt sent to ER. [...] med. She agrees to HH and PT [facility] Other 05-03-2023 NotePROCEDURE: XR KNEE LT 1_2 [...] Electronically authenticated by: WILD SOLO Date: 2023-03-16 09:18[facility]05-02-2023 Evaluation note* Encounter Date Diagnosis Assessment Notes Treatment Notes Treatment Clinical Notes March, Left lateral knee pain (ICD-10 - M25.562) Discussed possible PT. Has improved overall with rest and stretching. Will start with Xray. Recommended tylenol products. March, Hypertension (ICD-10 - I10) chronic. stable - controlled on present [facility] Other 02-28-2023 Progress note Author Misti Connolly [facility] January 11, 2023 11:19am Note Date/Time January 11, 2023 10:42am [facility] at [address] [address] Hem/Onc Follow Up Note - OP Signed Patient: Hailee Trivedi MR#: [id number] : 1940 Acct:[id number] Age/Sex: 82 / F Type: REG RCR [...] neurologist. Head CT done March 2022 at [facility] without new/acute findings. 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 [...] been trying to transfer her care to [facility] but they are not up [...] x 1 week, sees neurology (followed at [facility]) who have ruled out stroke, CT [...] for coordination of care (as documented) and nhpk-xz-ekar counseling of patient and/or family. [facility] - Medical History Medical History: Medical History [...] 01/19/22 09:00 KB (Rec: 01/19/22 09:01 KB [id number]) Distress Screening Distress screening follow up: Will follow with patient for any needs at next visit. Anxious about making next appointment time. - Lab Results Diagram of Most Recent CBC and CMP 01/04/23 14:45 01/04/23 14:45 Labs - Last 7 Days 01/04/23 14:45: Free [place] LC, Quant 26.9 H, Free Lambda LC, Quant 12.0, Free [place]/Lambda Ratio 2.24 H 01/04/23 14:45: PHA Creatinine [...] % (Auto) 54.8, Lymph % (Auto) 34.1, Boyle % (Auto) 8.0, Eos % (Auto) 2.3, Baso % (Auto) 0.8, Nucleat RBC Rel Count 0.0, Neut # (Auto) 4.9, Lymph # (Auto) 3.0, Boyle # (Auto) 0.7, Eos # (Auto) 0.2, [...] <Electronically signed by RAMAKRISHNA Connolly> 01/11/23 1119 [facility] Work Phone: 1(350) 553-268102-27-2023 Hospital Discharge instructions Patient Education 01/10/2023 08:23:12 [...] include: ?Spinach. ?Rhubarb. ?Beets. ?Potato chips and frisian fries. ?Nuts. If you regularly take a diuretic medicine, make sure to eat at least 1 2 fruits or vegetables high in potassium each day. These include: ?Avocado. ?Banana. ?[place], prune, carrot, or tomato juice. ?Baked potato. [...] Casseroles. Pizza. Lasagna. Frozen meals. Potato chips. Kinyarwanda fries. Summary You can reduce your risk [...] 02/25/2012 Document Revised: 02/20/2020 Document Reviewed: 10/11/2017 CPM [employer] Patient Education 2020 [employer]. Follow Up Care 03/08/2022 11:44:08 With:XAVIER VELAZQUEZ, ZIA Urena Address: [facility] [address] [place] [address]- When: Unknown [facility] [place] 02-08-2023 Evaluation note* Encounter Date Diagnosis Assessment [...] sugars are above the goal. Continue follow-up [facility] PCP for diabetes mellitus management. She is [...] to the CKD. Continue oral sodium bicarbonate. [facility] Other 01-26-2023 Evaluation note* Encounter Date Diagnosis Assessment Notes Treatment Notes Treatment Clinical Notes Nov, Paroxysmal atrial fibrillation (ICD-10 - I48.0) Patient understands to restart all of her medicines and take them as prescribed Will notify her psych tech of this situation. Nov, Wart of face (ICD-10 - B07.9) Small wart on her face was treated with cryo freeze without issue pt tolerated procedure well Nov, CKD (chronic kidney disease), stage IV (ICD-10 - N18.4) Discussed follow-up appointment with Dr. Jane Nov, Multiple myeloma (ICD-10 - C90.00) Stable on present appointments and treatment [facility] Other 10-04-2022 Progress note Author Claire Choi [facility] August 17, 2022 1:48pm Note Date/Time August 03, 2022 4:57pm [facility] [place] [address] Hem/Onc Follow Up Note - OP Signed with Pipe Patient: Hailee Trivedi MR#: [id number] : 1940 Acct:[id number] Age/Sex: 82 / F Type: REG RCR [...] Addendum Signed By: 08/17/221347 Addendum Cosigned By: DD/ /05/1348 TD/TT: 08/17/2203/05/1348 ADDENDUM1 This was actually for date of service 07/13/22. Addendum Dictated By: Claire Choi II, DO Addendum Signed By: 08/03/221699 Addendum Cosigned By: DD/ TD/TT: 08/03/22 Date of Service: 08/03/2022 Time [...] neurologist. Head CT done March 2022 at [facility] without new/acute findings. May suggest brain MRI if no other etiologies identified - History of Present Illness Chief Complaint: Patient is here for a 3 month follow up with outside labs for review. States she has had ongoing lower back pain for the last month or so. Patient scheduled for Cycle 55 Daratumumab today. 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 [...] been trying to transfer her care to [place] [facility] clinic but they are not up [...] x 1 week, sees neurology (followed at [facility]) who have ruled out stroke, CT [...] for coordination of care (as documented) and rxat-zv-clxm counseling of patient and/or family. [facility] - Medical History Medical History: Medical History [...] 01/19/22 09:00 KB (Rec: 01/19/22 09:01 KB [id number]) Distress Screening Distress screening follow up: Will [...] signed by Claire Choi II, DO> 08/03/221658 [facility] Work Phone: 1(438) 489-412909-20-2022 Progress note Author Claire Choi [facility] August 03, 2022 5:01pm Note Date/Time August 03, 2022 5:00pm [facility] [place] [address] Hem/Onc Follow Up Note - OP Signed Patient: Hailee Trivedi MR#: [id number] : 1940 Acct:[id number] Age/Sex: 82 / F Type: REG RCR [...] neurologist. Head CT done March 2022 at [facility] without new/acute findings. May suggest brain MRI if no other etiologies identified - History of Present Illness Chief Complaint: Patient is here for a 3 month follow up with outside labs for review. States she has had ongoing lower back pain for the last month or so. Patient scheduled for Cycle 55 Daratumumab today. 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 [...] been trying to transfer her care to [place] [facility] but they are not up [...] x 1 week, sees neurology (followed at [facility]) who have ruled out stroke, CT [...] for coordination of care (as documented) and inwj-jg-nzdu counseling of patient and/or family. [facility] - Medical History Medical History: Medical History [...] 01/19/22 09:00 KB (Rec: 01/19/22 09:01 KB [id number]) Distress Screening Distress screening follow up: Will [...] Dictated By: Claire Choi II, DO DD/ 170 Signed By: <Electronically signed by Claire Choi II, DO> 08/03/22 1701 [facility] Work Phone: 1(280) 792-750408-24-2022 Evaluation note* Encounter Date Diagnosis Assessment Notes [...] sugars are above the goal. Continue follow-up [facility] PCP for diabetes mellitus management. She is [...] (IC D-10 - C90.00) Follows with Oncology [facility] Other 07-08-2022 History general Narrative - Reported* [...] Hospitalization History SEE ABOVE SURGERY Hospitalization History [facility]/RASH Hospitalization History COVID 10/2021 [facility] Other 07-08-2022 History general Narrative - Reported* [...] Medical History A-FIB Medical History VERTIGO PER [facility] 06/19/2023 Surgical History cholecystectomy Surgical History total hysterectomy 1989 Surgical History hemorrhoidectomy Surgical History CHEMO 06/2016 Surgical History lithotripsey 03/09/18 Surgical History Lithotripsey 02-09-2018 Surgical History left kidney stent 12-27-19 Surgical History LITHOTRIPSEY 01/24/2020 Surgical History STENT REMOVAL 03/03/2021 Surgical History KIDNEY STONES X 3 WITH LASER 02/19/2021 Hospitalization History SEE ABOVE SURGERY Hospitalization History [facility]/RASH Hospitalization History COVID 10/2021 [facility] Other 05-31-2022 Progress note Author Misti Connolly [facility] April 13, 2022 11:35am Note Date/Time April 13, 2022 9:33a [facility] [place] [address] Hem/Onc Follow Up Note - OP Signed Patient: Hailee Trivedi MR#: [id number] : 1940 Acct:[id number] Age/Sex: 81 / F Type: REG RCR [...] neurologist. Head CT done March 2022 at [facility] without new/acute findings. May suggest brain MRI if no other etiologies identified Follow Up Instructions: Irma today and continue every 6 weeks myeloma labs on irma days here cbc, cmp at [facility] prior to treatment follow-up with Dr. Quiroga in 3mo - History of Present Illness Chief Complaint: Patient is here today for 2 month follow up visit for multiple myeloma. 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 [...] been trying to transfer her care to [facility] [place] [facility] but they are not up [...] x 1 week, sees neurology (followed at [facility]) who have ruled out stroke, CT [...] 6 mg and cyclophosphamide 300 mg IV [id number]/15/2015, developed grade 2 anemia, fatigue and grade [...] for coordination of care (as documented) and zzvb-qa-oepy counseling of patient and/or family. [facility] - Medical History Medical History: Medical History [...] 01/19/22 09:00 KB (Rec: 01/19/22 09:01 KB [id number]) Distress Screening Distress screening follow up: Will follow with patient for any needs at next visit. Anxious about making next appointment time. - Lab Results Diagram of Most Recent CBC and CMP 04/08/22 13:20 04/08/22 13:20 Labs - Last 7 Days 04/08/22 13:20: Serum Total Protein 5.9 L, Albumin (Send Out) 3.6, Globulin (PEP) 2.3, Albumin/Globulin (PEP) 1.6, Iorys-2-Qxnruptqz 0.1, Uhlsa-2-Jrlhbthyo 0.8, Beta Globulins 0.7, Gamma Globulins 0.6, M-Krystian Not observed, PEP Note , Free [place] LC, Quant 17.7, Free Lambda LC, Quant 10.0, Free [place]/Lambda Ratio 1.77 H 04/08/22 13:20: PHA Creatinine [...] % (Auto) 54.1, Lymph % (Auto) 38.9, Boyle % (Auto) 5.8, Eos % (Auto) 0.7, Baso % (Auto) 0.5, Neut # (Auto) 4.6, Lymph # (Auto) 3.3, Boyle # (Auto) 0.5, Eos# (Auto) 0.1, Baso [...] <Electronically signed by RAMAKRISHNA Connolly> 04/13/22 1135 [facility] Work Phone: 1([phone]) 992-863204-25-2022 Hospital Discharge instructions Patient Education 03/08/2022 11:37:40 [...] 10/31/2006 Document Revised: 07/20/2019 Document Reviewed: 09/30/2017 CPM [employer] Patient Education 2020 [employer] 03/08/2022 11:37:40 Calorie Counting for Weight Loss [...] 10/31/2006 Document Revised: 07/20/2019 Document Reviewed: 09/30/2017 CPM [employer] Patient Education 2020 [employer] 03/08/2022 11:37:32 Kidney Stones, Ujvf-go-Dmmw Kidney Stones Kidney stones are rock-like masses [...] Follow these instructions at home: Medicines Take kqhu-bip-kaervlu and prescription medicines only as told by [...] Kidney Foundation (NKF): www.kidney.org [facility] (UCF): www.urologyhealth.org Contact a doctor if: You have [...] 04/18/2009 Document Revised: 03/18/2020 Document Reviewed: 03/18/2020 CPM [employer] Patient Education 2019 [employer]. Follow Up Care 09/04/2021 09:56:37 With:XAVIER VELAZQUEZ, Tyree Rivers, URL Address: [facility] [address], [place] [address]- [phone] When:01/08/2023 Comments:10 month carlene MARAVILLA [facility] 03-07-2022 Progress note Author Claire Choi [facility] January 18, 2022 9:58am Note Date/Time January 18, 2022 9:42 am [facility] at [address] [address] Hem/Onc Follow Up Note - OP Signed Patient: Hailee Trivedi MR#: [id number] : 1940 Acct:[id number] Age/Sex: 81 / F Type: REG RCR [...] prior to f/u. f/u with me or [employer]. - History of Present Illness Chief Complaint: [...] 6 mg and cyclophosphamide 300 mg IV vmitvb8208/15/2015, developed grade 2 anemia, fatigue and grade [...] for coordination of care (as documented) and yimy-mp-scmb counseling of patient and/or family. [facility] - Medical History Medical History: Medical History [...] % (Auto) 59.4, Lymph % (Auto) 31.4, Boyle % (Auto) 7.2, Eos % (Auto) 0.9, Baso % (Auto) 1.1, Neut # (Auto) 5.4, Lymph # (Auto) 2.8, Boyle # (Auto) 0.7, Eos# (Auto) 0.1, Baso [...] 0941 Signed By: <Electronically signed by Claire Choi, EDEL, DO> 01/18/22 0958 [facility] Work Phone: [phone] 801-434903-03-2022 Evaluation note* Encounter Date Diagnosis Assessment Notes [...] D-10 - C90.00) Followup with Dr. Bello [employer] Other 02-02-2022 Progress note Author Hunter Bello [facility] December 16, 2021 1:18pm Note Date/Time December 16, 2021 1 :17pm [facility] [place] [id number] Hem/Onc Follow Up Note - OP Signed Patient: Hailee Trivedi MR#: [id number] : 1940 Acct:[id number] Age/Sex: 81 / F Type: REG RCR [...] 6 mg and cyclophosphamide 300 mg IV mmknpl5608/15/2015, developed grade 2 anemia, fatigue and grade [...] will be to transfer her care to [place] [facility] when [place] [facility] is ready 2. VitB12 injections, monthly, [...] Depressed Mood [-], Anxiety [-], Stressed [-] [facility] - Medical History Medical History: Medical History [...] therapy. We will transfer her care to [place] when they are ready. o Continue Daratumumab [...] for coordination of care (as documented) and ndyy-gq-oryq counseling of patient and/or family. Dictated By: Hunter Bello MD DD/ 1316 Signed By: <Electronically signed by MD Hunter Bello> 12/16/21 1318 [facility] Work Phone: [phone] Progress note Author Hunter Bello [facility] October 06, 2021 10:02am Note Date/Time October 06, 2021 9:58am [facility] [place] [address] Hem/Onc Follow Up Note - OP Signed Patient: Hailee Trivedi MR#: [id number] : 1940 Acct:[id number] Age/Sex: 81 / F Type: REG RCR [...] been trying to transfer her care to [place] [facility] but they are not up [...] 6 mg and cyclophosphamide 300 mg IV qerroz9808/15/2015, developed grade 2 anemia, fatigue and grade [...] will be to transfer her care to [place] [facility] when [facility] is ready 2. VitB12 injections, monthly, [...] Depressed Mood [-], Anxiety [-], Stressed [-] [facility] - Medical History Medical History: Medical History [...] % (Auto) 57.1, Lymph % (Auto) 34.7, Boyle % (Auto) 6.1, Eos % (Auto) 0.8, Baso % (Auto) 1.3, Neut # (Auto) 5.1, Lymph # (Auto) 3.1, Boyle # (Auto) 0.5, Eos# (Auto) 0.1, Baso [...] therapy. We will transfer her care to [place] when they are ready. o Continue Daratumumab [...] for coordination of care (as documented) and umah-fn-wujv counseling of patient and/or family. Dictated By: Hunter Bello MD DD/ 0957 Signed By: <Electronically signed by MD Hunter Bello> 10/06/21 1002 [facility] Work Phone: [phone] Evaluation note* Encounter Date Diagnosis Assessment Notes [...] to Nephrolithiasis. She follows with Urologist Dr. oLu. She has hypocirturia but cannot tolerate Potassium Citrate due to hyperkalemia Sep, Multiple myeloma (IC D-10 - C90.00) Followup with Dr. Bello [employer] Other 10-26-2021 Progress note Author Hunter Bello [facility] September 08, 2021 11:19am Note Date/Time September 08, 2021 1 1:17am [facility] [place] [address] Hem/Onc Follow Up Note - OP Signed Patient: Hailee Trivedi MR#: [id number] : 1940 Acct:[id number] Age/Sex: 81 / F Type: REG RCR [...] and then transferring her care to the [place] [facility]. She will be getting monthly [...] 6 mg and cyclophosphamide 300 mg IV bksxan7408/15/2015, developed grade 2 anemia, fatigue and grade [...] will be to transfer her care to [place] [facility]. 2. VitB12 injections, monthly, switched [...] Depressed Mood [-], Anxiety [-], Stressed [-] [facility] - Medical History Medical History: Medical History [...] mg chewable tablet 81 mg PO DAILY 12/05/18 [History Confirmed 09/08/21] cyanocobalamin (vitamin B-12) 1,000 [...] % (Auto) 59.8, Lymph % (Auto) 31.4, Boyle % (Auto) 7.0, Eos % (Auto) 1.2, Baso % (Auto) 0.6, Neut # (Auto) 5.4, Lymph # (Auto) 2.8, Boyle # (Auto) 0.6, Eos# (Auto) 0.1, Baso [...] therapy See me in 1 month in [place] for monthly daratumumab. (2) B12 deficiency anemia [...] for coordination of care (as documented) and txby-dh-pjyd counseling of patient and/or family. Dictated By: Hunter Bello MD DD/ 1116 Signed By: <Electronically signed by MD Hunter Bello> 09/08/21 1119 [facility] Work Phone: [phone]) [phone] History of Present illness Narrative* Patient is [...] recurrence. She did have noninvasive assessment at [facility], which was negative. Couple of years ago. [...] of change in cardiac status or symptoms [facility] [address] DO Work Phone: [phone]) 295-620008-03-2021 Progress note Author Mike Bradley [facility] June 16, 2021 9:35am Note Date/Time June 16, 2021 9:2 9am [facility] [place] [address] Hem/Onc Follow Up Note - OP Signed Patient: Hailee Trivedi MR#: [id number] : 1940 Acct:[id number] Age/Sex: 81 / F Type: REG RCR [...] M-spike of 0.2 g/dL with an IgG [place] specificity. She hadn't had a previous SPEP [...] 6 mg and cyclophosphamide 300 mg IV pghycq9208/15/2015, developed grade 2 anemia, fatigue and grade [...] Depressed Mood [-], Anxiety [-], Stressed [-] [facility] - Medical History Medical History: Medical History [...] % (Auto) 34.5 % (.) 06/09/21 09:40 Boyle % (Auto) 5.6 % (.) 06/09/21 09:40 Eos % (Auto) 1.1 % (.) 06/09/21 09:40 Baso % (Auto) 0.6 % (.) 06/09/21 09:40 Neut # (Auto) 4.4 x10E3/uL (1.8-7.7) 06/09/21 09:40 Lymph # (Auto) 2.6 x10E3/uL (1.00-4.8) 06/09/21 09:40 Boyle # (Auto) 0.4 x10E3/uL (0.0-0.8) 06/09/21 09:40 [...] 09:40 Albumin/Globulin (PEP) 1.3 (0.7-1.7) 06/09/21 09:40 Nuloz-8-Sxmjyxlhv 0.2 g/dL (0.0-0.4) 06/09/21 09:40 Fhulv-3-Jzywimcdt 0.9 g/dL (0.4-1.0) 06/09/21 09:40 Beta Globulins [...] Urine pH (5.0-9.0) 02/24/21 12:05 Ur Specific Radford 1.009 (1.001-1.030) 02/24/21 12:05 Urine Protein mg/dL [...] 125 mg/24 hr (30-150) 06/09/21 09:28 U Ywwga-5-Ehgkydhh 4.3 % (.) 06/09/21 09:28 U Lxhlh-1-Asgzevhf 16.0 % (.) 06/09/21 09:28 U Beta [...] 09:40 Serum Immunofixation (.) A 06/09/21 09:40 HAILEE IgG 487 mg/dL (700-1600) L 10/13/18 09:10 HAILEE IgA 65 mg/dL (64-422) 10/13/18 09:10 HAILEE IgM 38 mg/dL (26-217) 10/13/18 09:10 Urine Immunofixation (.) A 06/09/21 09:28 Ur IEP M-Krystian % 24 hr 21.1 % (Not Observed) H 06/09/21 09:28 Anti-Parietal Cell Ab 1.9 Units (0.0-20.0) 02/28/19 11:21 Intrinsic Factor Ab 0.9 AU/mL (0.0-1.1) 02/28/19 11:21 Free [place] LC, Quant 20.1 mg/L (3.3-19.4) H 06/09/21 09:40 Free Lambda LC, Quant 11.9 mg/L (5.7-26.3) 06/09/21 09:40 Free [place]/Lambda Ratio 1.69 (0.26-1.65) H 06/09/21 09:40 Assessment [...] for coordination of care (as documented) and tshv-co-fbwa counseling of patient and/or family. Dictated By: Mike Bradley MD DD/ Signed By: <Electronically signed by Mike Bradley MD> 06/16/21 0935 [facility] Work Phone: [phone]) 565-467307-06-2021 Progress note Author Mike Bradley [facility] May 19, 2021 2:08pm Note Date/Time May 19, 2021 1:50p m [facility] [place] [address] Hem/Onc Follow Up Note - OP Signed Patient: Hailee Trivedi MR#: [id number] : 1940 Acct:[id number] Age/Sex: 81 / F Type: REG RCR [...] 6 mg and cyclophosphamide 300 mg IV pwkpjv8208/15/2015, developed grade 2 anemia, fatigue and grade [...] Depressed Mood [-], Anxiety [-], Stressed [-] [facility] - Medical History Medical History: Medical History [...] % (Auto) 34.2 % (.) 04/14/21 11:10 Boyle % (Auto) 5.7 % (.) 04/14/21 11:10 Eos % (Auto) 1.1 % (.) 04/14/21 11:10 Baso % (Auto) 0.6 % (.) 04/14/21 11:10 Neut # (Auto) 5.0 x10E3/uL (1.8-7.7) 04/14/21 11:10 Lymph # (Auto) 2.9 x10E3/uL (1.00-4.8) 04/14/21 11:10 Boyle # (Auto) 0.5 x10E3/uL (0.0-0.8) 04/14/21 11:10 [...] Urine pH (5.0-9.0) 02/24/21 12:05 Ur Specific Radford 1.009 (1.001-1.030) 02/24/21 12:05 Urine Protein mg/dL [...] Ab 0.9 AU/mL (0.0-1.1) 02/28/19 11:21 Free [place] LC, Quant 17.8 mg/L (3.3-19.4) 04/14/21 11:10 Free Lambda LC, Quant 9.2 mg/L (5.7-26.3) 04/14/21 11:10 Free [place]/Lambda Ratio 1.93 (0.26-1.65) H 04/14/21 11:10 Assessment [...] for coordination of care (as documented) and zecf-fw-qoop counseling of patient and/or family. Dictated By: Mike Bradley MD DD/ 1349 Signed By: <Electronically signed by Mike Bradley MD> 05/19/21 1409 [facility] Work Phone: [phone] 481-422005-11-2021 Progress note Author Margarito Buenrostro [facility] March 24, 2021 12:36pm Note Date/Time March 24, 2021 12:33 pm [facility] [place] at [address] [address] Hem/Onc Follow Up Note - OP Signed Patient: Hailee Trivedi MR#: [id number] : 1940 Acct:[id number] Age/Sex: 80 / F Type: REG RCR [...] 6 mg and cyclophosphamide 300 mg IV ekbvua6808/15/2015, developed grade 2 anemia, fatigue and grade [...] Daratumumab 03/17/2016-. Total 39 cycles. -03/17/16-05/05/16, weekly. -7/6/16-08/25/16, biweekly. -09/22/16-, every 4 weeks. 09/21/2017 held [...] - Last 7 Days 03/17/21 13:30: Free [place]on LC, Quant 28.8 H, Free Lambda LC, Quant 13.2, Free [place]/Lambda Ratio 2.18 H 03/17/21 13:30: Corrected WBC 6.1, Uncorrected WBC Count 6.1, RBC 3.56 L, Hgb 11.7 L, Hct 34.3, MCV 96.4, MCH 32.8, MCHC 34.0, RDW 13.7, Plt Count 227, MPV 10.2, Neut % (Auto) 40.5, Lymph % (Auto) 47.8, Boyle % (Auto) 10.6, Eos % (Auto) 0.6, Baso % (Auto) 0.5, Neut # (Auto) 2.5, Lymph # (Auto) 2.9, Boyle # (Auto) 0.6, Eos # (Auto) 0.0, [...] she is profoundly fatigue, in retrospect, she hadkalyn javed. -Switched back to infusional Daratumumab 02/17/21, tolerating [...] for coordination of care (as documented) and zubh-qu-znmq counseling of patient and/or family. Dictated By: Margarito Buenrostro MD DD/ 1232 Signed By: <Electronically signed by Margarito Buenrostro MD> 03/24/21 1236 [facility] Work Phone: [phone] Progress note Author Margarito Buenrostro [facility] February 06, 2021 10:35am Note Date/Time February 06, 2021 10: 32am [facility] at [address] [address] Hem/Onc Follow Up Note - OP Signed Patient: Hailee Trivedi MR#: [id number] : 1940 Acct:[id number] Age/Sex: 80 / F Type: REG RCR [...] 6 mg and cyclophosphamide 300 mg IV wshxql1508/15/2015, developed grade 2 anemia, fatigue and grade [...] % (Auto) 64.7, Lymph % (Auto) 27.2, Boyle % (Auto) 6.2, Eos % (Auto) 1.5, Baso % (Auto) 0.4, Neut # (Auto) 4.7, Lymph # (Auto) 2.0, Boyle # (Auto) 0.5, Eos# (Auto) 0.1, Baso [...] for coordination of care (as documented) and fbbw-md-hahd counseling of patient and/or family. Dictated By: Margarito Buenrostro MD DD/ 103 Signed By: <Electronically signed by Margarito Buenrostro MD> 02/06/21 1035 [facility] Work Phone: [phone]) [phone] Progress note Author Margarito Buenrostro [facility] January 08, 2021 10:17am Note Date/Time January 08, 2021 10:14am [facility] at [address] [address] Hem/Onc Follow Up Note - OP Signed Patient: Hailee Trivedi MR#: [id number] : 1940 Acct:[id number] Age/Sex: 80 / F Type: REG RCR [...] 6 mg and cyclophosphamide 300 mg IV mzwbcc2508/15/2015, developed grade 2 anemia, fatigue and grade [...] plan to see in 4 weeks, repeat Bur[place]on/lambda ratio in6-8 weeks. -Continue Acyclovir 400mg bid [...] for coordination of care (as documented) and nttv-or-uhod counseling of patient and/or family. Dictated By: Margarito Buenrostro MD DD/ 1013 Signed By: <Electronically signed by Margarito Buenrostro MD> 01/08/21 1017 [facility] Work Phone: [phone] Progress note Author Margarito Buenrostro [facility] December 02, 2020 12:29pm Note Date/Time December 02, 2020 1 2:27pm [facility] at [address] [address] Hem/Onc Follow Up Note - OP Signed Patient: Hailee Trivedi MR#: [id number] : 1940 Acct:[id number] Age/Sex: 80 / F Type: REG RCR [...] 6 mg and cyclophosphamide 300 mg IV xhhmgx1108/15/2015, developed grade 2 anemia, fatigue and grade [...] plan to start in 4 weeks, repeat [place]/lambda ratio in 6weeks. -Continue Acyclovir 400mg bid [...] for coordination of care (as documented) and eyos-gs-pmad counseling of patient and/or family. Dictated By: Margarito Buenrostro MD DD/ 25 Signed By: <Electronically signed by Margarito Buenrostro MD> 12/02/20 1229 [facility] Work Phone: [phone] 408-193112-22-2020 Progress note Author Margarito Buenrostro [facility] November 04, 2020 1:30pm Note Date/Time November 04, 2020 1:22pm [facility] [place] [address] Hem/Onc Follow Up Note - OP Signed Patient: Hailee Trivedi MR#: [id number] : 1940 Acct:[id number] Age/Sex: 80 / F Type: REG RCR [...] 6 mg and cyclophosphamide 300 mg IV onfcdb2808/15/2015, developed grade 2 anemia, fatigue and grade [...] - Last 7 Days 10/28/20 11:11: Free [place] LC, Quant , Free Lambda LC, Quant , Free [place]/LambdaRatio Order [place] Free K+L Assessment and Plan (1) Multiple [...] to treatment, see in 4 weeks. Her [place]/lambda ratio was not drawn, will draw today. [...] for coordination of care (as documented) and bfen-pf-jaao counseling of patient and/or family. Dictated By: Margarito Buenrostro MD DD/ 1317 Signed By: <Electronically signed by Margarito Buenrostro MD> 11/04/20 8097 [facility] Work Phone: [phone] Progress note Author Margarito Buenrostro [facility] October 07, 2020 10:20am Note Date/Time October 07, 2020 10:18am [facility] [place] [address] Hem/Onc Follow Up Note - OP Signed Patient: Hailee Trivedi MR#: [id number] : 1940 Acct:[id number] Age/Sex: 80 / F Type: REG RCR [...] 6 mg and cyclophosphamide 300 mg IV txclon5508/15/2015, developed grade 2 anemia, fatigue and grade [...] see in 4 weeks. Plan to repeat [place]/lambda ratio in 3 weeks. -Continue Acyclovir 400mg [...] was for coordination of care(as documented) and kmyv-jt-vxcn counseling of patient and/or family. Dictated By: Margarito Buenrostro MD DD/ 1017 Signed By: <Electronically signed by Margarito Buenrostro MD> 10/07/20 1020 [facility] Work Phone: [phone] Progress note Author Margarito Buenrostro [facility] September 09, 2020 10:20am Note Date/Time September 09, 2020 1 0:18am [facility] [place] [address] Hem/Onc Follow Up Note - OP Signed Patient: Hailee Trivedi MR#: [id number] : 1940 Acct:[id number] Age/Sex: 80 / F Type: REG RCR [...] 6 mg and cyclophosphamide 300 mg IV qecdzf4608/15/2015, developed grade 2 anemia, fatigue and grade [...] - Last 7 Days 09/01/20 10:35: Free [place] LC, Quant 19.8 H, Free Lambda LC, Quant 11.2, Free [place]/Lambda Ratio 1.77 H Assessment and Plan (1) [...] see in 4 weeks. Plan to repeat [place]/lambda ratio in 7 weeks. -Continue Acyclovir 400mg [...] was for coordination of care(as documented) and ggwd-vc-dlna counseling of patient and/or family. Dictated By: Margarito Buenrostro MD DD/ 1017 Signed By: <Electronically signed by Margarito Buenrostro MD> 09/09/20 1020 [facility] Work Phone: [phone] Progress note Author Margarito Buenrostro [facility] August 12, 2020 11:28am Note Date/Time August 12, 2020 11:25am [facility] [place] [address] Hem/Onc Follow Up Note - OP Signed Patient: Hailee Trivedi MR#: [id number] : 1940 Acct:[id number] Age/Sex: 80 / F Type: REG RCR [...] 6 mg and cyclophosphamide 300 mg IV ezgzmr5208/15/2015, developed grade 2 anemia, fatigue and grade [...] see in 4 weeks. Plan to repeat [place]/lambda ratio in 3 weeks. -Continue Acyclovir 400mg [...] was for coordination of care(as documented) and obod-nf-jism counseling of patient and/or family. Dictated By: Margarito Buenrostro MD DD/ 23 Signed By: <Electronically signed by Margarito Buenrostro MD> 08/12/20 1128 [facility] Work Phone: [phone]) 625-386109-01-2020 Progress note Author Margarito Buenrostro [facility] July 15, 2020 10:42am Note Date/Time July 15, 2020 10:40am [facility] at [address] [address] Hem/Onc Follow Up Note - OP Signed Patient: Hailee Trivedi MR#: [id number] : 1940 Acct:[id number] Age/Sex: 80 / F Type: REG RCR [...] 6 mg and cyclophosphamide 300 mg IV rdjesq7708/15/2015, developed grade 2 anemia, fatigue and grade [...] - Last 7 Days 07/07/20 11:10: Free [place] LC, Quant 18.5, Free Lambda LC, Quant 11.7, Free [place]/Lambda Ratio 1.58 Assessment and Plan (1) Multiple [...] see in 4 weeks. Plan to repeat [place]/lambda ratio in 8 weeks. -Continue Acyclovir 400mg [...] for coordination of care (as documented) and xkks-yu-jixn counseling of patient and/or family. Dictated By: Margarito Buenrostro MD DD/ 1039 Signed By: <Electronically signed by Margarito Buenrostro MD> 07/15/20 1042 [facility] Work Phone: [phone] Progress note Author Margarito Buenrostro [facility] June 17, 2020 10:25am Note Date/Time June 17, 2020 10: 22am [facility] [place] [id number] Hem/Onc Follow Up Note - OP Signed Patient: Hailee Trivedi MR#: [id number] : 1940 Acct:[id number] Age/Sex: 80 / F Type: REG RCR [...] 6 mg and cyclophosphamide 300 mg IV bvlyia0808/15/2015, developed grade 2 anemia, fatigue and grade [...] see in 4 weeks. Plan to repeat [place]/lambda ratio in 4 weeks. -Continue Acyclovir 400mg [...] was for coordination of care(as documented) and xunz-ya-jvim counseling of patient and/or family. Dictated By: Margarito Buenrostro MD DD/ 1022 Signed By: <Electronically signed by Margarito Buenrostro MD> 06/17/20 1025 [facility] Work Phone: [phone] Progress note Author Margarito Buenrostro [facility] May 20, 2020 10:10am Note Date/Time May 20, 2020 10:00 am [facility] [place] [address] Hem/Onc Follow Up Note - OP Signed Patient: Hailee Trivedi MR#: [id number] : 1940 Acct:[id number] Age/Sex: 80 / F Type: REG RCR [...] 6 mg and cyclophosphamide 300 mg IV obyigz9108/15/2015, developed grade 2 anemia, fatigue and grade [...] - Last 7 Days 05/13/20 10:09: Free [place] LC, Quant 18.5, Free Lambda LC, Quant 9.6, Free [place]/Lambda Ratio 1.93 H 05/13/20 10:09: PHA Creatinine Clear 20.2718601042, Sodium 138, Potassium 4.6, Chloride 112, Carbon [...] Neut % (Auto) 59.3,Lymph % (Auto) 31.6, Boyle % (Auto) 7.5, Eos % (Auto) 1.1, Baso % (Auto) 0.5, Neut # (Auto) 4.6, Lymph # (Auto) 2.4, Boyle # (Auto) 0.6, Eos # (Auto) 0.1, [...] see in 4 weeks. Plan to repeat [place]/lambda ratio in 8 weeks. We will update [...] for coordination of care (as documented) and eghd-oo-ylty counseling of patient and/or family. Dictated By: Margarito Buenrostro MD DD/ 0958 Signed By: <Electronically signed by Margarito Buenrostro MD> 05/20/20 1010 [facility] Work Phone: [phone] Progress note Author Carol Cariaslon [facility] April 16, 2020 10:49am Note Date/Time April 16, 2020 9:10a m [facility] [place] [address] Hem/Onc Follow Up Note - OP Signed Patient: Hailee Trivedi MR#: [id number] : 1940 Acct:[id number] Age/Sex: 79 / F Type: REG RCR [...] 6 mg and cyclophosphamide 300 mg IV dvoxti1708/15/2015, developed grade 2 anemia, fatigue and grade [...] - Last 7 Days 04/09/20 09:35: Free [place] LC, Quant 16.6, Free Lambda LC, Quant 9.8, Free [place]/Lambda Ratio 1.69 H 04/09/20 09:35: PHA Creatinine Clear 19.4027411147, Sodium 138, Potassium 4.6, Chloride 111, Carbon [...] Neut % (Auto) 62.6,Lymph % (Auto) 29.5, Boyle % (Auto) 5.8, Eos % (Auto) 1.5, Baso % (Auto) 0.6, Neut # (Auto) 4.2, Lymph # (Auto) 2.0, Boyle # (Auto) 0.4, Eos # (Auto) 0.1, [...] The patient is also followed by nephrology -[place]/lambda ratio mild improvement 1.69 -Continue Acyclovir 400mg bid for Herpes Zoster prophylaxis. She will call if refills are needed. -Patient will return in [address] Pimentel or sooner with repeat CBC, CMP, k/L [...] for coordination of care (as documented) and zzfx-xr-qryi counseling of patient and/or family. Dictated By: Carol Younger APRN DD/ 8 Signed By: <Electronically signed by RAMAKRISHNA Younger> 04/16/20 1044 [facility] Work Phone: [phone] Progress note Author Margarito Buenrostro [facility] March 19, 2020 8:55am Note Date/Time March 19, 2020 8:37am [facility] [place] [address] Hem/Onc Follow Up Note - OP Signed Patient: Hailee Trivedi MR#: [id number] : 1940 Acct:[id number] Age/Sex: 79 / F Type: REG RCR [...] 6 mg and cyclophosphamide 300 mg IV lzakqv2308/15/2015, developed grade 2 anemia, fatigue and grade [...] (Last Updated 01/26/20 @ 17:29 by Haydee Henderson RN) Afib CKD (chronic kidney disease) CVA (cerebral vascular accident) Diabetes HTN (hypertension) History of hysterectomy Hyperlipidemia Kidney stone Multiple myeloma - Surgical History Surgical History: Surgical History (Last Updated 01/26/20 @ 17:29 by Haydee Henderson RN) History of cholecystectomy History of hemorrhoidectomy [...] for coordination of care (as documented) and fktj-ph-rngi counseling of patient and/or family. Dictated By: Margarito Buenrostro MD DD/ Signed By: <Electronically signed by Margarito Buenrostro MD> 03/19/20 0855 [facility] Work Phone: [phone] Progress note Author Margarito Buenrostro [facility] January 09, 2020 9:15am Note Date/Time January 09, 2020 9:12am [place] [address] Hem/Onc Follow Up Note - OP Signed Patient: Hailee Trivedi MR#: [id number] : 1940 Acct:[id number] Age/Sex: 79 / F Type: REG RCR [...] 6 mg and cyclophosphamide 300 mg IV lwaarx5508/15/2015, developed grade 2 anemia, fatigue and grade [...] Neut % (Auto) 64.3,Lymph % (Auto) 25.2, Boyle % (Auto) 7.0, Eos % (Auto) 3.0, Baso % (Auto) 0.5, Neut # (Auto) 4.3, Lymph # (Auto) 1.7, Boyle # (Auto) 0.5, Eos # (Auto) 0.2, Baso# (Auto) 0.0, Nucleated RBC % (auto) 0.0 01/03/20 09:10: Free [place] LC, Quant 17.3, Free Lambda LC, Quant 10.2, Free [place]/Lambda Ratio 1.70 H Assessment and Plan (1) [...] and sustained response. -Labs adequate to treat, Burgoon light chain level slightly trend upwards, but still stable, will proceed to Daratumumab today, will see her back in 6 weeks, plan to repeat K/L light chains in 5 weeks ahead of time, if Burgoon light chain continue to go up, plan [...] for coordination of care (as documented) and cbhn-be-djuk counseling of patient and/or family. Dictated By: Margarito Buenrostro MD DD/ 0 Signed By: <Electronically signed by Margarito Buenrostro MD> 01/09/20914 [facility] Work Phone: [phone] Progress note Author Margarito Buenrostro [facility] November 28, 2019 10:50am Note Date/Time November 28, 2019 9 :43am [facility] [place] [address] Hem/Onc Follow Up Note - OP Signed Patient: Hailee Trivedi MR#: [id number] : 1940 Acct:[id number] Age/Sex: 79 / F Type: REG RCR [...] 6 mg and cyclophosphamide 300 mg IV suwuoa1808/15/2015, developed grade 2 anemia, fatigue and grade [...] - Last 7 Days 11/20/19 14:30: Free Burgoon LC, Quant 14.5, Free Lambda LC, Quant 7.7, Free [place]/Lambda Ratio 1.88 H Assessment and Plan (1) [...] and sustained response. -Labs adequate to treat, Bur[place] light chain level slightly trend upwards, will proceed to Daratumumab today, will see her back in 6 weeks, plan to repeat K/L light chains in 5 weeks ahead of time, if Burgoon light chain continue to go up, plan [...] for coordination of care (as documented) and goce-sd-ckgs counseling of patient and/or family. Dictated By: Margarito Buenrostro MD DD/ 0943 Signed By: <Electronically signed by Margarito Buenrostro MD> 11/28/19 1050 [facility] Work Phone: [phone] 401-266212-04-2019 Progress note Author Margarito Buenrostro [facility] October 17, 2019 9:37am Note Date/Time October 17, 2019 9 :30am [facility] [place] [address] Hem/Onc Follow Up Note - OP Signed Patient: Hailee Trivedi MR#: [id number] : 1940 Acct:[id number] Age/Sex: 79 / F Type: REG RCR Copies to: Curt Clark MD~ Subjective Date/Time of Service: Date of Service: 10/17/2019 Time of Service: 09:26 Chief Complaint: Follow up appt prior to treatment doing well HPI: Hailee presents for routine follow up; prior to Daratumumab. Patient reports left leg sudden onset weakness last Tuesday while she was drawing labs at [facility]. She elected to not stay. This [...] 6 mg and cyclophosphamide 300 mg IV yrbyfe5908/15/2015, developed grade 2 anemia, fatigue and grade [...] for coordination of care (as documented) and soca-ci-sxyh counseling of patient and/or family. Dictated By: Margarito Buenrostro MD DD/ 5 Signed By: <Electronically signed by Margarito Buenrostro MD> 10/17/19 0937 [facility] Work Phone: [phone] Progress note Author Margarito Buenrostro [facility] July 25, 2019 8:31am Note Date/Time July 25, 2019 8:30am [facility] [place] [address] Hem/Onc Follow Up Note - OP Signed Patient: Hailee Trivedi MR#: [id number] : 1940 Acct:[id number] Age/Sex: 79 / F Type: REG RCR [...] 6 mg and cyclophosphamide 300 mg IV fhliyk6508/15/2015, developed grade 2 anemia, fatigue and grade [...] - Last 7 Days 07/18/19 08:54: Free [place]on LC, Quant 16.4, Free Lambda LC, Quant 10.9, Free [place]/Lambda Ratio 1.50 07/18/19 08:54: PHA Creatinine Clear [id number], Sodium 139, Potassium 4.6, Chloride 110, Carbon [...] % (Auto) 64.4, Lymph % (Auto) 27.6, Boyle % (Auto) 6.8, Eos % (Auto) 0.7, Baso % (Auto) 0.5, Neut # (Auto) 4.2, Lymph # (Auto) 1.8, Boyle # (Auto) 0.4, Eos # (Auto) 0.0,Baso [...] for coordination of care (as documented) and jyrs-wj-ymov counseling of patient and/or family. Dictated By: Margarito Buenrostro MD DD/ 9 Signed By: <Electronically signed by Margarito Buenrostro MD> 07/25/19830 [facility] Work Phone: [phone] Progress note Author Margarito Buenrostro [facility] June 13, 2019 8:37am Note Date/Time June 13, 2019 8:34 am [facility] [place] [address] Hem/Onc Follow Up Note - OP Signed Patient: Hailee Trivedi MR#: [id number] : 1940 Acct:[id number] Age/Sex: 79 / F Type: REG RCR Copies to: Curt Clark MD~ Subjective Date/Time of Service: Date of Service: 06/13/2019 Time of Service: 08:34 Chief Complaint: Follow up appt prior to treatment - Diagnosis DIAGNOSIS: DIAGNOSIS: 1. 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 [...] stem cell transplantation evaluated by Dr. Yossi Bradshwa, not a candidate. 2. Iron deficiency anemia, [...] CVA 2018. SOCIAL HISTORY: Lives with in [place]. HPI: Hailee presents for routine follow up; [...] 6 mg and cyclophosphamide 300 mg IV qypwfw0008/15/2015, developed grade 2 anemia, fatigue and grade [...] for coordination of care (as documented) and sxjp-dk-ltbs counseling of patient and/or family. Dictated By: Margarito Buenrostro MD DD/ Signed By: <Electronically signed by Margarito Buenrostro MD> 06/13/1937 [facility] Work Phone: [phone] Progress note Author Margarito Buenrostro [facility] May 02, 2019 8:38am Note Date/Time May 02, 2019 8:[address] [facility] [place] [id number] Hem/Onc Follow Up Note - OP Signed Patient: Hailee Trivedi MR#: [id number] : 1940 Acct:[id number] Age/Sex: 78 / F Type: REG RCR Copies to: Curt Clark MD~ Subjective Date/Time of Service: Date of Service: 05/02/2019 Time of Service: 08:32 Chief Complaint: Follow up appt prior to treatment no new concerns - Diagnosis DIAGNOSIS: DIAGNOSIS: 1. 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 [...] CVA 2017. SOCIAL HISTORY: Lives with in [place]. HPI: Hailee presents for routine follow up; [...] 6 mg and cyclophosphamide 300 mg IV ugbjqs6408/15/2015, developed grade 2 anemia, fatigue and grade [...] - Last 7 Days 04/25/19 11:05: Free [place]on LC, Quant 16.9, Free Lambda LC, Quant 10.8, Free [place]/Lambda Ratio 1.56 04/25/19 11:05: WBC 6.5, Corrected WBC 6.5, RBC 3.81, Hgb 12.2, Hct 36.4, MCV 95.7, MCH 32.1, MCHC 33.6, RDW 13.7, Plt Count 182, MPV 9.9, Neut % (Auto) 65.0,Lymph % (Auto) 26.9, Boyle % (Auto) 7.0, Eos % (Auto) 0.6, Baso % (Auto) 0.5, Neut # (Auto) 4.2, Lymph # (Auto) 1.8, Boyle # (Auto) 0.5, Eos # (Auto) 0.0, [...] for coordination of care (as documented) and ncmb-em-ksme counseling of patient and/or family. Dictated By: Margarito Buenrostro MD DD/ Signed By: <Electronically signed by Margarito Buenrostro MD> 05/02/19 0838 [facility] Work Phone: [phone] Progress note Author Margarito Buenrostro [facility] March 07, 2019 10:22am Note Date/Time March 07, 2019 10: 19am [facility] [place] [address] Hem/Onc Follow Up Note - OP Signed Patient: Hailee Trivedi MR#: [id number] : 1940 Acct:[id number] Age/Sex: 78 / F Type: REG RCR Copies to: Curt Clark MD~ Subjective Date/Time of Service: Date of Service: 03/07/2019 Time of Service: 08:16 Chief Complaint: Follow up appt prior to treatment - Diagnosis DIAGNOSIS: DIAGNOSIS: 1. 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 [...] CVA 2018. SOCIAL HISTORY: Lives with in [place]. HPI: Hailee presents for routine follow up; [...] 6 mg and cyclophosphamide 300 mg IV spgbwa5808/15/2015, developed grade 2 anemia, fatigue and grade [...] Joseph Block M.D.01/02/2019 10:11 AM Dictation Location: [facility] Any impression(s) listed above is documentation that [...] for coordination of care (as documented) and auar-xz-yqgf counseling of patient and/or family. Dictated By: Margarito Buenrostro MD DD/ 1016 Signed By: <Electronically signed by Margarito Buenrostro MD> 03/07/19 1022 [facility] Work Phone: [phone] Progress note Author Margarito Buenrostro [facility] January 10, 2019 8:49am Note Date/Time January 10, 2019 8:43am [place] [address] Hem/Onc Follow Up Note - OP Signed Patient: Hailee Trivedi MR#: [id number] : 1940 Acct:[id number] Age/Sex: 78 / F Type: REG RCR Copies to: Curt Clark MD~ Subjective Date/Time of Service: Date of Service: 01/10/2019 Time of Service: 08:42 Chief Complaint: Follow up appt prior to treatment has had leg weakness - Diagnosis DIAGNOSIS: DIAGNOSIS: 1. 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 [...] CVA 2018. SOCIAL HISTORY: Lives with in [place]. HPI: Hailee presents for routine follow up; prior to Cycle 19 Daratumumab. Patient had sudden onset weakness during blood draw for her labs last week, she was evaluated by ER, CT head at that point did not evidence of bleeding. She was released, she is currently wearing a clinical research monitor. Her legs are little weak,otherwise she [...] 6 mg and cyclophosphamide 300 mg IV jbvvyx3308/15/2015, developed grade 2 anemia, fatigue and grade [...] - Last 7 Days 01/02/19 09:35: Free Bur[place]on LC, Quant 14.9, Free Lambda LC, Quant 8.9, Free [place]/Lambda Ratio 1.67 H - Impressions ITS Impressions [...] Joseph Block M.D.01/02/2019 10:11 AM Dictation Location: [facility] Any impression(s) listed above is documentation that was entered by the reading physician into a diagnostic report(s) for Haileejeny Trivedi. I have reviewed the report(s) and [...] for coordination of care (as documented) and fclt-op-gwfh counseling of patient and/or family. Dictated By: Margarito Buenrostro MD DD/ Signed By: <Electronically signed by Margarito Buenrostro MD> 01/10/19 0849 [facility] Work Phone: [phone] Progress note Author Anna Marie Mcnamara [facility] January 02, 2019 4:51pm Note Date/Time January 02, 2019 4:51pm [facility] [address] [place] [address] Event Note Signed Patient: Hailee Trivedi MR#: [id number] : 1940 Acct:[id number] Age/Sex: 78 / F Adm Date: 9 Loc: XT Room: Type: [facility] Attending Dr: Margarito Buenrostro MD Copies to: MD Amber Stone Marcia E MD Ruta Semaskiene, MD~ [...] Documented By: Anna Marie Mcnamara MD 01/02/19 1643 Signed By: <Electronically signed by Anna Marie Mcnamara MD> 01/02/19 1651 [facility] Work Phone: [phone] Progress note Author Margarito Buenrostro [facility] November 15, 2018 8:49am Note Date/Time November 15, 2018 8: 45am [facility] [place] [id number] Hem/Onc Follow Up Note - OP Signed Patient: Hailee Trivedi MR#: [id number] : 1940 Acct:[id number] Age/Sex: 78 / F Type: REG RCR Copies to: Curt Clark MD~ Subjective Date/Time of Service: Date of Service: 11/15/2018 Time of Service: 08:43 Chief Complaint: Follow up appt myloma no new concerns - Diagnosis DIAGNOSIS: DIAGNOSIS: 1. 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 [...] CVA 2018. SOCIAL HISTORY: Lives with in [place]. HPI: Hailee presents for routine follow up; [...] 6 mg and cyclophosphamide 300 mg IV fshqzs7308/15/2015, developed grade 2 anemia, fatigue and grade [...] for coordination of care (as documented) and wnou-lr-ybam counseling of patient and/or family. Dictated By: Margarito Buenrostro MD DD/ 0843 Signed By: <Electronically signed by Margarito Buenrostro MD> 11/15/18 0849 [facility] Work Phone: [phone] Progress note [facility] October 18, 2018 9:34am Note Date/Time October 18, 2018 9 :30am [facility] [place] [id number] Hem/Onc Follow Up Note - OP Signed Patient: Hailee Trivedi MR#: [id number] : 1940 Acct:[id number] Age/Sex: 78 / F Type: REG RCR Copies to: Curt Clark MD~ Subjective Date/Time of Service: Date of Service: 10/18/2018 Time of Service: 09:27 Chief Complaint: Patient here for one month follow up appointment for Multiple myeloma to be seen before C16 Daratumumab. - Diagnosis DIAGNOSIS: DIAGNOSIS: 1. 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 [...] DM-II, CKD-3. SOCIAL HISTORY: Lives with in [place]. HPI: Hailee presents for routine follow up; [...] 6 mg and cyclophosphamide 300 mg IV msevuo5808/15/2015, developed grade 2 anemia, fatigue and grade [...] HAILEE IgA 65, HAILEE IgM 38, Free [place] LC, Quant 15.8, Free Lambda LC, Quant 9.7, Free [place]/Lambda Ratio 1.63 10/13/18 09:10: PHA Creatinine Clear 24.4990987708, Sodium 137, Potassium 4.1, Chloride 107, Carbon [...] % (Auto) 64.5, Lymph % (Auto) 27.4, Boyle % (Auto) 6.8, Eos % (Auto) 0.8, Baso % (Auto) 0.5, Neut # (Auto) 4.2, Lymph # (Auto) 1.8, Boyle # (Auto) 0.4, Eos # (Auto) 0.1, [...] for coordination of care (as documented) and dpdr-xf-jlrn counseling of patient and/or family. Dictated By: Lisa Devine DD/ 0927 Signed By: <Electronically signed by Lisa Devine> 10/18/18 0934 [facility] Work Phone: [phone] Progress note Author Jacklyn Cornelius [facility] September 20, 2018 8:53am Note Date/Time September 20, 2018 8 :43am [facility] [place] [address] Hem/Onc Follow Up Note - OP Signed Patient: Hailee Trivedi MR#: [id number] : 1940 Acct:[id number] Age/Sex: 78 / F Type: REG RCR Copies to: Curt Clark MD~ Subjective Date/Time of Service: Date of Service: 09/20/2018 Time of Service: 08:38 Chief Complaint: Multiple myeloma follow up appt day of treatment continues to have some dizziness - Diagnosis DIAGNOSIS: 1. 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 [...] DM-II, CKD-3. SOCIAL HISTORY: Lives with in [place]. HPI: Mrs. Bright is here today to [...] an MRI of the brain done at [place] under the direction of the neurologist. It [...] 6 mg and cyclophosphamide 300 mg IV mjgnbd4908/15/2015, developed grade 2 anemia, fatigue and grade [...] - Last 7 Days 09/13/18 11:15: Free Bur[place]on LC, Quant 15.3, Free Lambda LC, Quant 13.0, Free [place]/Lambda Ratio 1.18 09/13/18 11:15: PHA Creatinine Clear 21.1746891447, Sodium 140, Potassium 4.6, Chloride 109, Carbon [...] % (Auto) 58.9, Lymph % (Auto) 30.7, Boyle % (Auto) 8.9, Eos % (Auto) 1.2, Baso % (Auto) 0.3, Neut # (Auto) 3.5, Lymph # (Auto) 1.8, Boyle # (Auto) 0.5, Eos # (Auto) 0.1, [...] for coordination of care (as documented) and ydnu-cp-czaq counseling of patient and/or family. 25 - 35 minutes Dictated By: Jacklyn Cornelius MD DD/ 7 Signed By: <Electronically signed by Jacklyn Cornelius MD> 09/20/18 0853 [facility] Work Phone: [phone] Progress note Author Margarito Buenrostro [facility] August 09, 2018 9:41am Note Date/Time August 09, 2018 9:29am [facility] [place] [address] Hem/Onc Follow Up Note - OP Signed Patient: Hailee Trivedi MR#: [id number] : 1940 Acct:[id number] Age/Sex: 78 / F Type: REG RCR Copies to: Curt Clark MD~ Subjective Date/Time of Service: Date of Service: 08/09/2018 Time of Service: 09:28 Chief Complaint: Follow up appt on treatment multiple myeloma has infected toothbeing treated - Diagnosis DIAGNOSIS: 1. 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 [...] DM-II, CKD-3. SOCIAL HISTORY: Lives with in [place]. HPI: Mrs. Trivedi is seen as scheduled. [...] 6 mg and cyclophosphamide 300 mg IV kuhvxp8108/15/2015, developed grade 2 anemia, fatigue and grade [...] her MRI report (to be done in [place]). See in 5 weeks by SHAHID Bell, [...] for coordination of care (as documented) and flir-om-lund counseling of patient and/or family. 25 - 35 minutes Dictated By: Margarito Buenrostro MD DD/ 6 Signed By: <Electronically signed by Margarito Buenrostro MD> 08/09/18 09 [facility] Work Phone: [phone] Progress note Author Margarito Buenrostro [facility] July 12, 2018 9:09am Note Date/Time July 12, 2018 8: 33am [facility] [address] [address] Hem/Onc Follow Up Note - OP Signed Patient: Hailee Trivedi MR#: [id number] : 1940 Acct:[id number] Age/Sex: 78 / F Type: REG RCR Copies to: Curt Clark MD~ Subjective Date/Time of Service: Date of Service: 07/12/2018 Time of Service: 08:33 Chief Complaint: Follow up appt treatment today - Diagnosis DIAGNOSIS: 1. 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 [...] DM-II, CKD-3. SOCIAL HISTORY: Lives with in [place]. HPI: Mrs. Trivedi is seen as scheduled. [...] 6 mg and cyclophosphamide 300 mg IV rnszaf7408/15/2015, developed grade 2 anemia, fatigue and grade [...] potassium 4.2, creatinine 2.55, calcium 8.7 Free Bur[place]on LC, Quant 14.0 mg/L (3.3-19.4) 06/28/18 10:45 Free Lambda LC, Quant 9.7 mg/L (5.7-26.3) 06/28/18 10:45 Free [place]/Lambda Ratio 1.44 (0.26-1.65) 06/28/18 10:45 Total Bilirubin [...] for coordination of care (as documented) and rdhd-ht-eqvx counseling of patient and/or family. 25 - 35 minutes Dictated By: Margarito Buenrostro MD DD/ Signed By: <Electronically signed by Margarito Buenrostro MD> 07/12/18 0909 [facility] Work Phone: [phone] Progress note Author Margarito Buenrostro [facility] May 18, 2018 8:51am Note Date/Time May 18, 2018 8:44a m [facility] [place] [address] Hem/Onc Follow Up Note - OP Signed Patient: Hailee Trivedi MR#: [id number] : 1940 Acct:[id number] Age/Sex: 78 / F Type: REG RCR Copies to: Curt Clark MD~ Subjective Date/Time of Service: Date of Service: 05/18/2018 Time of Service: 08:42 Chief Complaint: weak today - Diagnosis DIAGNOSIS: 1. 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 [...] DM-II, CKD-3. SOCIAL HISTORY: Lives with in [place]. HPI: Mrs. Trivedi is seen as scheduled. [...] 6 mg and cyclophosphamide 300 mg IV hshlsy7308/15/2015, developed grade 2 anemia, fatigue and grade [...] CURRENT THERAPY 1. Daratumumab 03/17/2016-. -03/17/16-05/05/16, weekly. -05/19/16-10/12/16, biweekly. -09/22/16-, every 4 weeks. 09/21/2017 on [...] 7: 05/09/18 13:45 05/09/18 13:45 Labs: Free Burgoon LC, Quant 15.0 mg/L (3.3-19.4) 05/09/18 13:45 Free Lambda LC, Quant 10.8 mg/L (5.7-26.3) 05/09/18 13:45 Free [place]/Lambda Ratio 1.39 (0.26-1.65) 05/09/18 13:45 HbA1C 7.7 [...] for coordination of care (as documented) and gcln-yh-ezow counseling of patient and/or family. Greater than 35 minutes Dictated By: Margarito Buenrostro MD DD/ Signed By: <Electronically signed by Margarito Buenrostro MD> 05/18/18 0851 [facility] Work Phone: [phone] Progress note Author Margarito Buenrostro [facility] April 19, 2018 1:08pm Note Date/Time April 19, 2018 8:33a m [facility] [place] [address] Hem/Onc Follow Up Note - OP Signed Patient: Hailee Trivedi MR#: [id number] : 1940 Acct:[id number] Age/Sex: 77 / F Type: REG RCR Copies to: Curt Clark MD~ Subjective Date/Time of Service: Date of Service: 04/19/2018 Time of Service: 08:32 Chief Complaint: Follow up appt - Diagnosis DIAGNOSIS: 1. 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 [...] DM-II, CKD-3. SOCIAL HISTORY: Lives with in [place]. HPI: Mrs. Trivedi is seen as scheduled. [...] 6 mg and cyclophosphamide 300 mg IV kqqgit4408/15/2015, developed grade 2 anemia, fatigue and grade [...] for coordination of care (as documented) and cjub-gs-hgcw counseling of patient and/or family. 25 - 35 minutes Dictated By: Margarito Buenrostro MD DD/ 0832 Signed By: <Electronically signed by Margarito Buenrostro MD> 04/19/18 8894 [facility] Work Phone: 1([phone] 495-781105-02-2018 Progress note Author Margarito Buenrostro [facility] March 15, 2018 8:43am Note Date/Time March 15, 2018 8:38am [facility] [place] [address] Hem/Onc Follow Up Note - OP Signed Patient: Hailee Trivedi MR#: [id number] : 1940 Acct:[id number] Age/Sex: 77 / F Type: REG RCR Copies to: Curt Clark MD, Patrick MD~ Subjective Date/Time of Service: Date of Service: 03/15/2018 Time of Service: 08:37 Chief Complaint: Follow up appt - Diagnosis DIAGNOSIS: 1. 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 [...] DM-II, CKD-3. SOCIAL HISTORY: Lives with in [place]. HPI: Mrs. Trivedi is seen as scheduled. She reports had lithotripsy, then she developed pain involving bilateral wrist, elbows, and shoulder, primarily in themuscle. She went to [place] ER, took x-rays, no acute process was [...] 6 mg and cyclophosphamide 300 mg IV kfjkkr6208/15/2015, developed grade 2 anemia, fatigue and grade [...] Albumin 3.8 gm/dL (3.2-5.5) 03/08/18 11:50 Free Burgoon LC, Quant 18.6 mg/L (3.3-19.4) 03/08/18 11:50 Free Lambda LC, Quant 12.5 mg/L (5.7-26.3) 03/08/18 11:50 Free [place]/Lambda Ratio 1.49 (0.26-1.65) 03/08/18 11:50 Assessment and [...] Daratumumab to next week, orders placed. Continue Lkzdhaonh669fk bid for Herpes Zoster prophylaxis. See in [...] for coordination of care (as documented) and udil-pn-xfaq counseling of patient and/or family. 25 - 35 minutes Dictated By: Margarito Buenrostro MD DD/ 0837 Signed By: <Electronically signed by Margarito Buenrostro MD> 03/15/18 0843 [facility] Work Phone: [phone] Progress note Author Margarito Buenrostro [facility] January 18, 2018 10:51am Note Date/Time January 18, 2018 10:4 4am [facility] [address] [address] Hem/Onc Follow Up Note - OP Signed Patient: Hailee Trivedi MR#: [id number] : 1940 Acct:[id number] Age/Sex: 77 / F Type: REG RCR Copies to: Curt Clark MD~ Subjective Date/Time of Service: Date of Service: 01/18/2018 Time of Service: 10:42 Chief Complaint: Follow up appt - Diagnosis DIAGNOSIS: 1. 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 [...] DM-II, CKD-3. SOCIAL HISTORY: Lives with in [place]. HPI: Mrs. Trivedi is seen as scheduled. She reports double vision has improved after a triple to [place]. Her hearing is improving too. Fatigued as [...] 6 mg and cyclophosphamide 300 mg IV oidpgb0608/15/2015, developed grade 2 anemia, fatigue and grade [...] 7: 01/10/18 10:13 01/10/18 10:13 Labs: Free Bur[place]on LC, Quant 14.2 mg/L (3.3-19.4) 01/10/18 10:13 Free Lambda LC, Quant 11.4 mg/L (5.7-26.3) 01/10/18 10:13 Free [place]/Lambda Ratio 1.25 (0.26-1.65) 01/10/18 10:13 Assessment and [...] for coordination of care (as documented) and blcg-mp-yemw counseling of patient and/or family. 25 - 35 minutes Dictated By: Margarito Buenrostro MD DD/ 1042 Signed By: <Electronically signed by Margarito Buenrostro MD> 01/18/18 1051 [facility] Work Phone: [phone] Progress note Author Margarito Buenrostro [facility] November 23, 2017 10:25am Note Date/Time November 23, 2017 1 0:19am [facility] [address] [address] Hem/Onc Follow Up Note - OP Signed Patient: Hailee Trivedi MR#: [id number] : 1940 Acct:[id number] Age/Sex: 77 / F Type: REG RCR Copies to: Curt Clark MD~ Subjective Date/Time of Service: Date of Service: 11/23/2017 Time of Service: 10:18 Chief Complaint: Follow up appt - Diagnosis DIAGNOSIS: 1. 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 [...] 6 mg and cyclophosphamide 300 mg IV pelhaa1108/15/2015, developed grade 2 anemia, fatigue and grade [...] 7: 11/16/17 08:35 11/16/17 08:35 Labs: Free [place]on LC, Quant 17.9 mg/L (3.3-19.4) 11/16/17 08:35 Free Lambda LC, Quant 10.5 mg/L (5.7-26.3) 11/16/17 08:35 Free [place]/Lambda Ratio 1.70 (0.26-1.65) H 11/16/17 08:35 Assessment [...] to resume Daratumumab. -She will go to [place] in December, would like to resume therapy [...] for coordination of care (as documented) and qihe-at-[id number] counseling of patient and/or family. 25 - 35 minutes Dictated By: Margarito Buenrostro MD DD/ 1018 Signed By: <Electronically signed by Margarito Buenrostro MD> 11/23/17 1025 [facility] Work Phone: 1(726) 546-384412-06-2017 Progress note Author Margarito Buenrostro [facility] October 19, 2017 9:19am Note Date/Time October 19, 2017 8 :42am [facility] at [address] [address] Hem/Onc Follow Up Note - OP Signed Patient: Hailee Trivedi MR#: [id number] : 1940 Acct:[id number] Age/Sex: 77 / F Type: REG RCR Copies to: Curt Clark MD, Jeffrey DO~ Subjective Date/Time of Service: Date of Service: 10/19/2017 Time of Service: 08:42 Chief Complaint: Follow up appt - Diagnosis DIAGNOSIS: 1. 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 [...] 6 mg and cyclophosphamide 300 mg IV [id number]/15/2015, developed grade 2 anemia, fatigue and grade [...] Labs CBC & Chem 7: 10/14/17 13:43 10/14/17 13:43 Labs: Free [place] LC, Quant 15.6 mg/L (3.3-19.4) 10/14/17 13:43 Free Lambda LC, Quant 9.4 mg/L (5.7-26.3) 10/14/17 13:43 Free [place]/Lambda Ratio 1.66 (0.26-1.65) H 10/14/17 13:43 Assessment [...] for coordination of care (as documented) and chyv-sj-byic counseling of patient and/or family. less than 15 minutes Dictated By: Margarito Buenrostro MD DD/ 1 Signed By: <Electronically signed by Margarito Buenrostro MD> 10/19/17 0919 [facility] Work Phone: 1(857) 571-953611-08-2017 Progress note Author Margarito Buenrostro [facility] September 21, 2017 8:54am Note Date/Time September 21, 2017 8 :50am [facility] [place] [address] Hem/Onc Follow Up Note - OP Signed Patient: Hailee Trivedi MR#: [id number] : 1940 Acct:[id number] Age/Sex: 77 / F Type: REG RCR Copies to: Curt Clark MD, Jeffrey DO~ Subjective Date/Time of Service: Date of Service: 09/21/2017 Time of Service: 08:48 Chief Complaint: Follow up appt - Diagnosis DIAGNOSIS: 1. 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 [...] stem cell transplantation evaluated by Dr. Yossi Bradsahw, not a candidate. 2. Iron deficiency anemia, [...] 6 mg and cyclophosphamide 300 mg IV /12/2014, developed grade 2 anemia, fatigue and grade [...] 7: 09/15/17 10:45 09/15/17 10:45 Labs: Free [place]on LC, Quant 14.4 mg/L (3.3-19.4) 09/15/17 10:45 Free Lambda LC, Quant 9.3 mg/L (5.7-26.3) 09/15/17 10:45 Free [place]/Lambda Ratio 1.55 (0.26-1.65) 09/15/17 10:45 Assessment and [...] for coordination of care (as documented) and peam-li-kcjn counseling of patient and/or family. 25 - 35 minutes Dictated By: Margarito Buenrostro MD DD/ Signed By: <Electronically signed by Margarito Buenrostro MD> 09/21/17 0854 [facility] Work Phone: [phone]) 416-657509-13-2017 Progress note Author Margarito Buenrostro [facility] July 27, 2017 8:53am Note Date/Time July 27, 2017 8:46am [facility] at [address] [address] Hem/Onc Follow Up Note - OP Signed Patient: Hailee Trivedi MR#: [id number] : 1940 Acct:[id number] Age/Sex: 77 / F Type: REG RCR cc: Curt Clark MD, Edward Marcial~ Subjective Date/Time of Service: Date of Service: 07/27/2017 Time of Service: 08:44 Chief Complaint: Follow up appt - Diagnosis DIAGNOSIS: 1. 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 [...] 6 mg and cyclophosphamide 300 mg IV [id number]/15/2015, developed grade 2 anemia, fatigue and grade [...] Chem 7: 07/21/17 08:50 07/21/17 08:50 Labs: Burgoon and lambda light chain levels low, and [...] for coordination of care (as documented) and jtnn-tn-ojxu counseling of patient and/or family. 25 - 35 minutes Dictated By: Margarito Buenrostro MD DD/ 3 Signed By: <Electronically signed by Margarito Buenrostro MD> 07/27/17 0853 [facility] Work Phone: Evaluation + Plan note Future Appointments Appointment Date:01/10/2023 10:45:00 AM Scheduled Provider:yTree PARK MD Location:[facility] Appointment Type:URO Office Visit [facility] evaluation + Plan note Future Appointments Appointment Date:01/09/2024 08:45:00 AM Scheduled Provider:Tyree PARK MD Location:[facility] Appointment Type:URO Office Visit Diagnostic Tests Pending * Urine Cytology ([facility]) 01/10/23 [facility] evaluation noteNo [employer] Other Evaluation note* Diagnosis Onset Date Resolution [...] chronic Steroid-induced hyperglycemia chronic Unsteady gait resolved [facility] Work Phone: Evaluation note* Diagnosis Persistent atrial fibrillation with RVR (CMS/HCC)- Primary Aortic valve regurgitation, nonrheumatic Ascending aorta dilation (CMS/HCC) Thoracic aneurysm without mention of rupture Essential hypertension Unspecified essential hypertension Pulmonary hypertension (CMS/HCC) Other chronic pulmonary heart diseases Stage 3a chronic kidney disease (CMS/HCC) documented in this encounter [facility] Work Phone: Evaluation note* Diagnosis Aortic valve regurgitation, nonrheumatic Ascending aorta dilation (CMS/HCC) Thoracic aneurysm without mention of rupture Pulmonary hypertension (CMS/HCC) Other chronic pulmonary heart diseases documented in this encounter [facility] Work Phone: Evaluation note* Diagnosis Aortic valve regurgitation, nonrheumatic Ascending aorta dilation (CMS/HCC) Thoracic aneurysm without mention of rupture Pulmonary hypertension (CMS/HCC) Other chronic pulmonary heart diseases documented in this encounter [facility] Work Phone: Evaluation note* Diagnosis Onset Date Resolution Status Cerebellar stroke, acute acu te CKD (chronic kidney disease) stage 4, GFR 15-29 ml/min acute Diabetes mellitus type II, controlled acute Hyperlipidemia acute Atrial fibrillation chronic HTN (hypertension) chronic 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 Multiple myeloma in remission chronic Unsteady gait resolved CKD (chronic kidney disease) stage 4, GFR 15-29 ml/min acute Hyperlipidemia acute [id number] acute Metabolic acidemia acute Multiple myeloma acute Secondary hyperparathyroidism of renal origin acute 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 [facility] Work Phone: Evaluation note* Diagnosis Onset Date Resolution Status CKD (chronic kidney disease) stage 4, GFR 15-29 ml/min acute Hyperlipidemia acute [id number] acute Metabolic acidemia acute Multiple myeloma acute Secondary hyperparathyroidism of renal origin acute 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 Cerebellar stroke, acute acu te CKD (chronic kidney disease) stage 4, GFR 15-29 ml/min acute Diabetes mellitus type II, controlled acute Hyperlipidemia acute Atrial fibrillation chronic HTN (hypertension) chronic 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 Multiple myeloma in remission chronic Unsteady gait resolved [facility] Work Phone: Evaluation note* Diagnosis Onset Date Resolution Status Multiple myeloma acute Cerebellar stroke, acute acu te CKD (chronic kidney disease) stage 4, GFR 15-29 ml/min acute Diabetes mellitus type II, controlled acute Hyperlipidemia acute Atrial fibrillation chronic HTN (hypertension) chronic 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 Multiple myeloma in remission chronic Unsteady gait resolved UTI (urinary tract infection) acute [facility] Work Phone: Evaluation note* Diagnosis Essential hypertension- Primary Unspecified essential hypertension Persistent atrial fibrillation with RVR (Multi) Aortic valve regurgitation, nonrheumatic Ascending aorta dilation (CMS-HCC) Thoracic aneurysm without mention of rupture Mixed hyperlipidemia Pulmonary hypertension (Multi) Other chronic pulmonary heart diseases Stage 3a chronic kidney disease (Multi) Multiple myeloma, remission status unspecified (Multi) Shortness of breath at rest BMI 34.0-34.9,adult Never smoked tobacco documented in this encounter [facility] Work Phone: Evaluation note* Diagnosis Onset Date Resolution Status 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 UTI (urinary tract infection) acute Cerebellar stroke, acute acu te CKD (chronic kidney disease) stage 4, GFR 15-29 ml/min acute Diabetes mellitus type II, controlled acute Hyperlipidemia acute Atrial fibrillation chronic HTN (hypertension) chronic 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 Multiple myeloma in remission chronic Unsteady gait resolved [facility] Work Phone: Hisuizv general Narrative - Reported* Type Description Date [...] Hospitalization History SEE ABOVE SURGERY Hospitalization History [facility]RASH [employer] Other Hisfsay general Narrative - Reported* Type Description Date [...] Hospitalization History [facility]-DEHYDRATION/RASH Hospitalization History COVID 10/2021 [employer] Other History general Narrative - Reported* Type Description [...] Hospitalization History [facility]-DEHYDRATION/RASH Hospitalization History COVID 10/2021 [employer] Other History of Present illness Narrative* Patient [...] recurrence. She did have noninvasive assessment at [facility], which was negative. Couple of years ago. [...] of change in cardiac status or symptoms [facility] DO Work Phone: History of Present [...] recurrence. She did have noninvasive assessment at [facility], which was negative. Couple of years ago. [...] of change in cardiac status or symptoms [facility] 250 DO Work Phone: Hospital course Narrative No data available for this section [facility] progress note No data available for this section [facility] progress note Author Misti Jeanpamela [facility] January 11, 2023 11:19am Note Date/Time January 11, 2023 10:42am [facility] [place] at [address] [address] Hem/Onc Follow Up Note - OP Signed Patient: Hailee Trivedi MR#: [id number] : 1940 Acct:[id number] Age/Sex: 82 / F Type: REG RCR Copies to: MD Claire Napier II, DO~ Date of Service: 01/11/2023 Time [...] neurologist. Head CT done March 2022 at [facility] without new/acute findings. 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 [...] been trying to transfer her care to [place] [facility] but they are not up [...] x 1 week, sees neurology (followed at [facility]) who have ruled out stroke, CT [...] for coordination of care (as documented) and ngob-lg-dieg counseling of patient and/or family. [facility] - Medical History Medical History: Medical History [...] 01/19/22 09:00 KB (Rec: 01/19/22 09:01 KB [id number]) Distress Screening Distress screening follow up: Will follow with patient for any needs at next visit. Anxious about making next appointment time. - Lab Results Diagram of Most Recent CBC and CMP 01/04/23 14:45 01/04/23 14:45 Labs - Last 7 Days 01/04/23 14:45: Free Bur[place]on LC, Quant 26.9 H, Free Lambda LC, Quant 12.0, Free [place]/Lambda Ratio 2.24 H 01/04/23 14:45: PHA Creatinine [...] % (Auto) 54.8, Lymph % (Auto) 34.1, Boyle % (Auto) 8.0, Eos % (Auto) 2.3, Baso % (Auto) 0.8, Nucleat RBC Rel Count 0.0, Neut # (Auto) 4.9, Lymph # (Auto) 3.0, Boyle # (Auto) 0.7, Eos # (Auto) 0.2, [...] By: <Electronically signed by RAMAKRISHNA Connolly> 01/11/23 1116 [facility] Work Phone: Progress note Author Misti Connolly [facility] January 31, 2024 1:03pm Note Date/Time January 27, 2024 2:[address] [place] [address] Cancer Center Note Signed Patient: Hailee Trivedi MR#: [id number] : 1940 Acct:[id number] Age/Sex: 83 / F Type: DEP [facility] Date of Service: 01/27/24 Copies to: Curt Clark MD~ Assessment & Plan A/P (1) Multiple myeloma: Plan 81 year old female with a long history of multiple myeloma Previously evaluated for consideration of autologous transplant and was not a candidate. Her myeloma is refractory to VCD, she could not tolerate Revlimid, and she progressed on Carfilzomib. She previously tolerated daratumumab well. Within one month of starting irma [id number] she had 95% reduction in K light chains and have been normal since. March 2022 her M spike remains undetectable. Continued on Daratumumab Jun 2022 visit we decided to monitor off of therapy. Counts have remained fairlystable overall since this time Dec 2022 she continues to do very well off treatment and agrees with continued monitoring of labs every 3 months Jul 2023 She is continue off of daratumurmab and essentially stable mspike and K/L ratio. There was some confusion on my part at todays visit. When she left the visit i discussed continuing her daratumumab every 4 weeks. Upon further review when i wrote the note a few days later i realized she had not had ddaratumumab since june 2022 and her labs are basically stable. I called her this morning (07/23/23) and told her that she does not need to get daratumab. and we will MONITOR WIHTOUT THERAPY. Mach 2023 paraprotein evaluation stable overall. She continues to feel well off therapy. We will continue to monitor counts every 3 months for now and will follow-up in 6mo, sooner if needed. Lytic lesions completed Pamidronate 60 mg monthly for 2 years. She was switched to every 3 month but stopped after 04/2018 since she stayed in remission for total of 2 years. Last dose was 04/19/2018. 01/29/22 bone survey notes stable with one lytic lesion in R humeral head 01/06/23 bone survey without any lytic lesions noted. May repeat if new symptoms or concerns Vitamin B12 deficiency Antibodies for parietal cells and intrinsic factor were normal. Switched to oral Vit B12 in 04/2019. Repeat B12 level in 07/2019 was 900 and 506 in 11/02. -- Continue oral vitamin B12 at 1000mcg daily. L leg weakness New since end of March 2022- this is being managed by her neurologist. Head CT done March 2022 at [facility] without new/acute findings. January 2024 ok overall, no new concerns. Orders: Orders Complete Blood Count Auto Diff 3 Months C90.00 - Multiple myeloma not having achieved remission Comprehensive Metabolic Panel 3 Months C90.00 - Multiple myeloma not having achieved remission Immunofixation,Serum 3 Months C90.00 - Multiple myeloma not having achieved remission Protein Electrophoresis, Serum 3 Months C90.00 - Multiple myeloma not having achieved remission Complete Blood Count Auto Diff 6 Months C90.00 - Multiple myeloma not having achieved remission Comprehensive Metabolic Panel 6 Months C90.00 - Multiple myeloma not having achieved remission Immunofixation,Serum 6 Months C90.00 - Multiple myeloma not having achieved remission Free K+L LT Chains, Qn, S 3 Months C90.00 - Multiple myeloma not having achievedremission Protein Electrophoresis, Serum 6 Months C90.00 - Multiple myeloma not having achieved remission Free K+L LT Chains, Qn, S 6 Months C90.00 - Multiple myeloma not having achievedremission Patient Instructions: cbc, cmp, spep, flc, immunoglobulins, hailee in 3mo and 6mo follow-up in 6mo with Dr. 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 [...] in the calvarium and distal right humerus. Her myeloma is refractory to VCD, she could not tolerate Revlimid, and she progressed on Carfilzomib. She is tolerating therapy with daratumumab well. Within one month of starting irma in 2015 she had 95% reduction in K light chains and have been normal since. Followed with Dr peña through [address] Choi. Sep 2021 mspike 0.1 on maintennace daratumumab. jun 2022 labs remain stable, 0.2 M spike. creat 2.38 07/19/23 She is doing ok overall. She states she has absolutely no energy overall. She had a day inpatient for vertigo. using cane for ambulation, ambulating carefully. She having flare of pain in her L knee recnetly. she was having some urinary incontinence after that borja was placed in the hospital. Dr. Clark her pcp has given her bactrim which she has not taken yet. LAST DARATUMUMAB WAS JUNE 2022. There was some confusion on my part at todays visit. When she left the visit i discussed continuing her daratumumab every 4 weeks. Upon further review when i wrote the note a few days later i realized she had not had ddaratumumab since june 2022 and her labs are basically stable. I called her this morning (07/23/23) and told her that she does not need to get daratumab. and we will MONITOR WIHTOUT THERAPY. 01/27/24 she continues to do well, no new concerns energy is stable she denies any new bone pain continues to follow closely with Dr. Suarez for her CKD. She has still been able to maintain without dialysis labs are stable overall Intake Vitals/Pain Assessment 01/27/24 15:01 Weight 90.718 kg BP 140/76 Blood Pressure Location Lt brachial Position Sitting Temp 97.8 F Temp Source Temporal Pulse 64 Pulse Source NIBP Respiration 16 Pulse Oximetry (%) 99 Oxygen Delivery Method room air Are you having pain? No Intake Visit Reasons: multiple myeloma Allergies lenalidomide [From Revlimid] Allergy (Mild, Verified 01/27/24 15:02) Rash, itching oxybutynin Allergy (Unknown, Verified 01/27/24 15:02) Rash, rash, hives pregabalin [From Lyrica] Allergy (Unknown, Verified 01/27/24 15:02) double vision - Last Reconciled 01/27/24 by Alisia Loaiza acyclovir TAKE 1 TABLET TWICE A DAY amlodipine 5 mg PO DAILY aspirin 81 mg PO DAILY atorvastatin 40 mg PO DAILY carvedilol (Coreg) 12.5 mg PO BID 30 days cholecalciferol (vitamin D3) (Vitamin D3) 1,000 units PO DAILY cyanocobalamin (vitamin B-12) 1,000 mcg PO DAILY [Fish Oil 1,200 caps PO BID] insulin NPH isoph U-100 human (Humulin N NPH U-100 Insulin (isophane susp)) FreeTextSi units (using [employer] brand) Subcutaneous 15 units twice a day; Note: Source Status: Taking; Provider: Gabo Ace rivaroxaban (Xarelto) 15 mg PO DAILY 30 days sodium bicarbonate 650 mg PO BID sodium citrate-citric acid 490-640 mg/5 mL (Oracit) 10 mL PO QID PHQ-2/9 In last 2 wks how often bothered by any of these problems? Little interest or pleasure in doing things: not at all Feeling down, depressed, or hopeless: not at all PHQ-2 Total Score: 0 Gastrointestinal Is the patient taking opioids for pain control?: No Nurse's Note: Patient is here today for a 6 month follow up visit for multiple myeloma and go over labs [facility] Medical History Medical History (Updated 01/04/24 @ 11:38 by Akin Suarez MD) Multiple myeloma Type 2 diabetes mellitus with chronic kidney disease Hypertensive chronic kidney disease with stage 1 through stage 4 chronic kidney disease, or unspecified chronic kidney disease Vitamin D deficiency Secondary hyperparathyroidism of renal origin CKD (chronic kidney disease) stage 4, GFR 15-29 ml/min Trigger finger, left middle finger Diabetic nephropathy associated with type 2 diabetes mellitus Cerebrovascular accident (CVA) involving cerebellum COVID COVID-19 Afib CVA (cerebral vascular accident) CKD (chronic kidney disease) HTN (hypertension) Multiple myeloma Hyperlipidemia Surgical History Surgical History Hx of lithotripsy History of renal stent History of hemorrhoidectomy History of cholecystectomy History of hysterectomy Family History Family History Brother Hypertension Legacy FamHx Relation: Brother(s) Daughter Heart disease Legacy FamHx Relation: Daughter(s) Father Mother History of stroke Legacy FamHx Problem: Diagnosed with Stroke Diabetes Heart disease Son Heart disease Cancer Legacy FamHx Problem: Diagnosed with Cancer Diabetes Sister Diabetes Social History Social History Smoking status: Never smoker Nicotine containing products detail: Do you use smokeless tobacco? no In the past 12 months, have you used illegal drugs or prescription drugs for non-medical reasons?: No Physical Exam EXAM CONSTITUTIONAL: Awake, Alert and in No Acute Distress HEENT: Eyes were reactive to light bilaterally, anicteric sclere without conjunctival pallor. Nasal mucosa was non-erythematous. Mucous membranes were moist. LYMPHATIC: No auricular, anterior/posterior cervical, supraclavicular, infraclavicular, axillary, or inguinal adenopathy appreciated RESPIRATORY: CTA bilaterally, no wheezes, rhonchi or rales CARDIAC: RRR. No murmurs, gallops or rubs. No edema MUSCULOSKELETAL: Gait was normal. No clubbing or cyanosis noted. SKIN: No rashes, lesions, nodules, ecchymoses, erythema or petechiae were noted. PSYCHIATRIC: Oriented to time, place and person. Memory was intact. Results - [facility] (Med Onc) LAB RESULTS Corrected WBC 8.5 X10E3/uL (3.8-11.6) 01/17/24 13:10 Hgb 12.7 g/dL (11.8-15.4) 01/17/24 13:10 Hct 37.6 % (34.0-46.4) 01/17/24 13:10 MCV 94.8 fl (80-100) 01/17/24 13:10 RDW 13.3 % (11.9-15.3) 01/17/24 13:10 Plt Count 201 x10E3/uL (150-450) 01/17/24 13:10 Sodium 138 mmol/L (136-145) 01/17/24 13:10 Potassium 4.6 mmol/L (3.5-5.1) 01/17/24 13:10 BUN 41 mg/dL (7-25) H 01/17/24 13:10 Creatinine 2.31 mg/dL (0.60-1.20) H 01/17/24 13:10 Glucose 150 mg/dL (70-100) H 01/17/24 13:10 Est GFR (CKD-EPI) 20.724 mL/Min 01/17/24 13:10 Calcium 8.6 mg/dL (8.6-10.3) 01/17/24 13:10 Total Bilirubin 0.5 mg/dl (0.3-1.0) 01/17/24 13:10 AST 12 U/L (13-39) L 01/17/24 13:10 ALT 8 U/L (7-52) 01/17/24 13:10 Alkaline Phosphatase 103 U/L (34-104) 01/17/24 13:10 Total Protein 6.6 gm/dL (6.4-8.9) 01/17/24 13:10 Albumin 3.8 gm/dL (3.5-5.7) 01/17/24 13:10 Dictated By: Misti Connolly APRN DD/ [id number] Signed By: <Electronically signed by RAMAKRISHNA Connolly> 01/31/24 1303 [facility] Work Phone: Reason for referral (narrative)* Consultation (Routine) - Authorized Specialty Diagnoses / Procedures Referred By Silver t Referred To Contact Cardiology Diagnoses Persistent atrial fibrillation with RVR (Multi) Procedures Follow Up In Cardiology Elicia Rhodes MD [address] [place] [address], [address] [address] Elicia Rhodes MD [address] [place] [address], [address] [address] Referral ID Status Reason Start Date Expiration Date V isits Requested Visits Authorized [id number] Authorized 04/17/2024 04/17/2025 1 1 [facility] Work Phone: Summary Purpose Family History No Family History Records FoundUnknown Family Member Name Dates Details Family history [...] cular accident (CVA): Mother, Sister(V17.1, Z82.3) Status:Active Relationship Condition Age at Onset Recorded Date/T macie brother Hypertension Unknown daughter Heart disease Unknown father Unknown Not Specified History of stroke Unknown Diabetes mellitus Unknown Heart disease Unknown Unknown natural son Heart disease Unknown Malignant neoplasm Unknown sister Diabetes mellitus Unknown Relationship Condition Age at Onset Recorded Date/T macie brother Hypertension Unknown daughter Heart disease Unknown father Unknown mother History of stroke Unknown Diabetes mellitus Unknown Heart disease Unknown Unknown son Heart disease Unknown Malignant neoplasm Unknown sister Diabetes mellitus Unknown Advance Directives No Advanced Directives Records Found Advance Directive Response Recorded Date/ Time Advance [...] myeloma in remission Steroid-induced hyperglycemia Unsteady gait Chief Complaint 6 Month Follow Up Multiple Myeloma. 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 sugar concerns Urinary tract infection Reason for Visit Multiple myeloma Cerebellar stroke, acute CKD (chronic kidney disease) stage 4, GFR 15-29 ml/min Diabetes mellitus type II, controlled Hyperlipidemia Atrial fibrillation HTN (hypertension) 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 Multiple myeloma in remission Unsteady gait UTI (urinary tract infection) Chief Complaint sugar concerns N39.0 Multiple Myeloma. 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 2, [address] [place] [id number] Referral ID Status Reason Start Date Expiration Date Visits Requested Visits Authorized [id number] Pending Review Perform Procedure 10/03/2024 1 1 Specialty Diagnoses / Procedures Referred By Silver kim Referred To Contact Diagnoses Persistent atrial fibrillation with RVR (CMS/HCC) Procedures ECG 12 Lead Elicia Rhodes MD [address], [address] [address] Referral ID Status Reason Start Date Expiration Date V isits Requested Visits Authorized [id number] Pending Review 10/04/2023 10/03/2024 1 1 Specialty Diagnoses / Procedures Referred By Silver kim Referred To Contact Cardiology Diagnoses Persistent atrial fibrillation with RVR (CMS/HCC) Aortic valve regurgitation, nonrheumatic Ascending aorta dilation (CMS/HCC) Procedures Follow Up In Cardiology Elicia Rhodes MD [address] [facility] 2, [address] [address] Elicia Rhodes MD [address] [place] [address] 2, [address] [place] [address] Referral ID Status Reason Start Date Expiration Date V isits Requested Visits Authorized [id number] Authorized 10/04/2023 10/03/2024 1 1 Additional Source Comments INFORMATION SOURCE (unrecogn ized section and content) DATE CREATED AUTHOR [facility]/2019 [facility] DATE CREATED AUTHOR AUTHOR'S ORGANIZ ATION 03/24/2023 [facility] DATE CREATED AUTHOR AUTHOR'S ORGANIZ ATION 03/26/2023 [facility] DATE CREATED AUTHOR AUTHOR'S ORGANIZ ATION 03/26/2023 [employer] DATE CREATED AUTHOR AUTHOR'S ORGANIZ ATION 11/09/2023 [facility] DATE CREATED AUTHOR AUTHOR'S ORGANIZ ATION 01/14/2024 [facility] DATE CREATED AUTHOR AUTHOR'S ORGANIZ ATION 03/15/2024 [facility] EP[facility] DATE CREATED AUTHOR AUTHOR'S ORGANIZ ATION 04/18/2024 [facility] DATE CREATED AUTHOR AUTHOR'S ORGANIZ ATION 06/02/2024 [facility] REASON FOR VISIT (unrecogniz ed section and content) Reason Comments Follow-up 6m with ekg Specialty Diagnoses / Procedures Referred By Contac t Referred To Contact Diagnoses Persistent atrial fibrillation with RVR (CMS/HCC) Procedures ECG 12 Lead Elicia Rhodes MD [address] [facility] [address], [address] [place] [address] Referral ID Status Reason Start Date Expiration Date V isits Requested Visits Authorized [id number] Pending Review 10/04/2023 10/03/2024 1 1 Specialty Diagnoses / Procedures Referred By Contac t Referred To Contact Cardiology Diagnoses Aortic valve regurgitation, nonrheumatic Ascending aorta dilation (CMS/HCC) Pulmonary hypertension (CMS/HCC) Procedures Transthoracic Echo (TTE) Complete UT ECHO TRANSTHORC R-T 2D W/WO M-MODE REC F-UP/LMTD UT DOP ECHOCARD COLOR FLOW VELOCITY MAPPING UT DOP ECHOCARD PULSE WAVE W/SPECTRAL F-UP/LMTD STD Elicia Rhodes MD [address] [facility] [address], [address] [place] [address] Referral ID Status Reason Start Date Expiration Date Visits Requested Visits Authorized [id number] Pending Review Perform Procedure 3 10/03/2024 1 1 Reason Comments Follow-up 6 months Specialty Diagnoses / Procedures Referred By Contac t Referred To Contact Cardiology Diagnoses Persistent atrial fibrillation with RVR (Multi) Aortic valve regurgitation, nonrheumatic Ascending aorta dilation ([facility]-HCC) Procedures Follow Up In Cardiology Elicia Rhodes MD [address] [facility] [address], [address] [place] [address] Elicia Rhodes MD [address] [facility] [address], [address] [place] [address] Referral ID Status Reason Start Date Expiration Date V isits Requested Visits Authorized [id number] Authorized 10/04/2023 10/03/2024 1 1 Care Teams (unrecognized sec [...] Claire Choi II, DO Attending Provider Active Wireless Sales Representative Relationship Specialty Start Date End Date Curt Clark MD PCP - General 12/10/14 Wireless Sales Representative Relationship Specialty Start Date End Date Curt Clark MD [address] [place] [id number] PCP - General Family Medicine 10/22/23 Wireless Sales Representative Relationship Specialty Start Date End Date Curt Clark MD [address] [place] [id number] PCP - General Family Medicine 10/22/23 Team Status: Inactive Member Role Status Dates Curt Clark MD Attending Provider Active St art: December 01, 2023 End: December 01, 2023 Team Status: Active Member Role Status Dates Curt Clark MD Primary Care Provider Active Start: December 15, 2023 Claire Choi II, DO Attending Provider Active Start: December 15, 2023 Team Status: Active Member Role Status Dates Curt Clark MD Primary Care Provide r, Attending Provider Active Start: December 27, 2023 Team Status: Inactive Member Role Status Dates Curt Clark MD Primary Care Provider Active Start: January 04, 2024 End: January 04, 2024 Akin Suarez MD Attending Provider Active Start : January 04, 2024 End: January 04, 2024 Team Status: Active Member Role Status Dates Curt Clark MD Primary Care Provider Active Start: January 27, 2024 Claire Choi II, DO Active S tart: January 27, 2024 Misti Connolly APRN Attending Provider Acti ve Start: January 27, 2024 Team Status: Inactive Member Role Status Dates Curt Clark MD Primary Care Provider Active Start: January 27, 2024 End: January 27, 2024 Misti Connolly APRN Attending Provider Acti ve Start: January 27, 2024 End: January 27, 2024 Team Status: Active Member Role Status Dates Curt Clark MD Primary Care Provide r, Attending Provider Active Start: February 15, 2024 Team Status: Active Member Role Status Dates Curt Clark MD Primary Care Provider Active Start: February 28, 2024 Claire Choi II, DO Attending Provider Active Start: February 28, 2024 Team Status: Inactive Member Role Status Dates Curt Clark MD Primary Care Provide r, Attending Provider Active Start: April 12, 2024 End: April 12, 2024 Wireless Sales Representative Relationship Specialty Start Date End Date Curt Clark MD PCP - General Family Medicine 10/22/23 Team Status: Active Member Role Status Dates Curt Clark MD Primary Care Provider Active Start: April 25, 2024 Claire Choi II, DO Attending Provider Active Start: April 25, 2024 Team Status: Active Member Role Status Dates Curt Clark MD Primary Care Provider Active Start: May 23, 2024 Liberty Rossi MD Attending Provider Active Sta rt: May 23, 2024 Team Status: Inactive Member Role Status Dates Curt Clark MD Primary Care Provide r, Attending Provider Active Start: May 31, 2024 End: May 31, 2024 Goals (unrecognized section and content) Goals may [...] BE BASED ON THE PRIMARY CLINICAL RECORDS. [facility] [employer] [facility]. provides no warranty or guarantee of the accuracy or completeness of information in this document.
[2024-06-27 09:15] LABS: Bilirubin Urine NEGATIVE (NEGATIVE); Blood Urine TRACE-I (NEGATIVE); Clarity Urine CLEAR (CLEAR); Color Urine YELLOW (YELLOW); Glucose Urine UA NEGATIVE (NEGATIVE); Ketones Urine NEGATIVE (NEGATIVE); Leukocyte Esterase Urine MODERATE (NEGATIVE); Nitrite Urine NEGATIVE (NEGATIVE); Protein Urine 30 mg/dL (NEG/TRACE); Urobilinogen Urine 0.2 EU/dL (0.2-1.0)
[2024-06-27 09:25] LABS: Hematocrit 40.7 % (36.0-48.0); Hemoglobin 13.2 g/dL (12.0-16.0); Mean Corpuscular HGB Conc 32.4 g/dL (29.9-35.2); Mean Corpuscular Hemoglobin 31.6 pg (26.7-34.0); Mean Corpuscular Volume 97.4 fL (81.0-99.0); Mean Platelet Volume 12.1 fL (9.5-13.5); Platelet Count 188 10^3/uL (150-450); Red Blood Count 4.18 10^6/uL (4.20-5.40); Red Cell Distribution Width 12.6 % (11.0-15.0); White Blood Count 7.9 10^3/uL (4.0-11.0)
[2024-06-27 09:31] LABS: Bacteria Urine MODERATE #/HPF (NONE SEEN); Cast Seen? NONE SEEN #/LPF (NONE SEEN); Crystals Seen? None Seen #/HPF (None Seen); Mucus Urine TRACE (NONE SEEN); RBC Urine NONE SEEN #/HPF (0-2); Squamous Epithelial Cell Urine FEW #/LPF (NONE/RARE); Transitional Epi Cells Urine RARE #/LPF (NONE SEEN)
[2024-06-27 09:32] LABS: Urine Culture Indicated YES
[2024-06-27 09:58] LABS: Albumin Level 3.2 g/dL (3.4-5.0); BUN Creatinine Ratio 14.2; Calcium 8.6 mg/dL (8.5-10.1); Carbon Dioxide 26.2 mmol/L (21.0-32.0); Chloride 103 mmol/L (98-107); Estimated GFR (African America 21 (>=60); Estimated GFR (Non-African Ame 17 (>=60); Glucose 139 mg/dL (74-106); Phosphorus 3.9 mg/dL (2.6-4.7); Potassium 5.2 mmol/L (3.5-5.1); Sodium 136 mmol/L (136-145); Uric Acid 6.4 mg/dL (2.6-6.0)
[2024-06-27 12:23] LABS: Creatinine Urine Random 190.05 mg/dL (20.00-300.00); Protein Creatinine Ratio Urine 0.45; Total Protein Urine Random 85.7 mg/dL (<=11.9)
[2024-06-28 12:09] LABS: PTH, Intact 105 pg/mL (15-65)
== END 2024-06-27 08:17 | disposition home or self-care (01) ==
LOC: LAB 08:18
PROVIDERS: PCP Family Medicine; Visit Provider Internal Medicine
DX: E87.20 Acidosis, unspecified (principal); C90.00 Multiple myeloma not having achieved remission; N25.81 Secondary hyperparathyroidism of renal origin; E11.22 Type 2 diabetes mellitus with diabetic chronic kidney disease; I12.9 Hypertensive chronic kidney disease with stage 1 through stage 4 chronic kidney disease, or unspecified chronic kidney disease; N18.4 Chronic kidney disease, stage 4 (severe); C90.01 Multiple myeloma in remission
CPT/HCPCS: 36415; 80069; 81001; 82306; 82570; 83735; 83970; 84156; 84550; 85027; 87086

== ENCOUNTER 2024-09-14 13:57 | Emergency (ER) | payer MEDICARE, OTHER, SELFPAY ==
[2024-09-14] VITALS (12 sets, daily range): BP systolic 147–195; BP diastolic 64–99; PULSE 55–83; TEMP 36.8; O2SAT 93–99; BMI 31.8
--- NOTE | 2024-09-14 14:19 | ED.GENADUL1 ---
HPI HPI - General Adult General Chief complaint: Weakness Stated complaint: POSSIBLE COVID, WEAKNESS, DEHYDRATION Time Seen by Provider: 09/14/24 13:59 Source: patient Mode of arrival: Wheelchair Limitations: no limitations History of Present Illness HPI narrative: 84-year female presents to the ER with her daughter for evaluation of generalized weakness and fatigue. Patient states she was diagnosed with COVID last week, her had the same illness. She was prescribed Zithromax on 09/06 and dexamethasone 6 mg tablets for 5 days. Patient states she completed this treatment but still feels weak and fatigued. She denies any pain in her chest, nonproductive cough noted. She denies feeling short of breath. Patient states for the past week she has been having multiple bouts of diarrhea. She reports watery stools but very minimal output and she has also not been eating. She denies any blood or mucus in her stools. Patient states her also has diarrhea but is getting better. Patient denies any fever or dysuria. Related Data Home Medications ?Medication ?Instructions ?Recorded ?Confirmed acyclovir 400 mg tablet 400 mg PO Q12H 04/19/23 09/17/23 aspirin 81 mg capsule 81 mg PO DAILY 04/19/23 09/17/23 atorvastatin 40 mg tablet 40 mg PO .once a day 04/19/23 09/17/23 carvedilol 12.5 mg tablet 12.5 mg PO Q12H 04/19/23 09/17/23 rivaroxaban 15 mg tablet (Xarelto) 15 mg PO Q24H 04/19/23 09/17/23 B12 1,000 mcg PO .every other day 06/19/23 09/17/23 cholecalciferol (vitamin D3) 25 25 mcg PO BEDTIME 06/19/23 09/17/23 mcg (1,000 unit) capsule insulin NPH isoph U-100 human 100 10 unit subcut BID 06/19/23 09/17/23 unit/mL (3 mL) subcutaneous pen (Humulin N NPH U-100 Insulin KwikPen) omega 3-znr-nki-fish oil 300 1 cap PO BID 06/19/23 09/17/23 mg-1,000 mg capsule (Fish Oil) sodium bicarbonate 650 mg tablet 650 mg PO BID 06/19/23 09/17/23 Previous Rx's ?Medication ?Instructions ?Recorded meclizine 12.5 mg tablet 25 mg (2 x 12.5 mg) PO QID PRN 06/20/23 Vertigo #30 tabs cephalexin 250 mg capsule 250 mg PO BID 5 days #10 caps 09/14/24 Allergies Allergy/AdvReac Type Severity Reaction Status Date / Time lenalidomide (From Revlimid) Allergy Rash Verified 09/14/24 14:11 pregabalin (From Lyrica) Allergy Rash Verified 09/14/24 14:11 oxybutynin AdvReac Mild Rash Verified 09/14/24 14:11 Opioid HPI Opioid Management Most Recent Opioid Data: Last Pain Scale 0 06/20/23 04:27 06/20/23 Review of Systems ROS Constitutional Reports: fatigue; Denies: fever, chills or change in weight Eyes Denies: change in vision Ears, nose, mouth, and throat Reports: ear pain (denies pain, notes fullness), nasal congestion and post nasal drip; Denies: throat pain or neck pain Cardiovascular Denies: chest pain, palpitations or edema Respiratory Reports: cough; Denies: shortness of breath Gastrointestinal Denies: abdominal pain or nausea Genitourinary Denies: painful urination or urinary frequency Musculoskeletal Denies: back pain or neck pain Integumentary/Breast Denies: rash Neurological Denies: headache, weakness in extremities or dizziness Psychiatric Denies: anxiety or mood swings Endocrine Denies: excessive urination Allergic/Immunologic Denies: hives [facility] Medical History (Updated 09/14/24 @ 16:36 by KRISTEN East) Cerebrovascular disease ?I67.9 - Cerebrovascular disease, unspecified (ICD-10) Paroxysmal atrial fibrillation ?I48.0 - Paroxysmal atrial fibrillation (ICD-10) CKD (chronic kidney disease) stage 4, GFR 15-29 ml/min ?N18.4 - Chronic kidney disease, stage 4 (severe) (ICD-10) Type 2 diabetes mellitus with hyperglycemia ?E11.65 - Type 2 diabetes mellitus with hyperglycemia (ICD-10) Hypertension ?I10 - Essential (primary) hypertension (ICD-10) Cataract ?H26.9 - Unspecified cataract (ICD-10) Multiple myeloma ?C90.00 - Multiple myeloma not having achieved remission (ICD-10) Stroke ?I63.9 - Cerebral infarction, unspecified (ICD-10) Osteoarthritis of left knee ?M17.12 - Unilateral primary osteoarthritis, left knee (ICD-10) Hypertension ?I10 - Essential (primary) hypertension (ICD-10) Surgical History (Updated 04/19/23 @ 11:32 by Letty Overton) Hx of cholecystectomy ?Z90.49 - Acquired absence of other specified parts of digestive tract (ICD-10) History of hysterectomy ?Z90.710 - Acquired absence of both cervix and uterus (ICD-10) Family History (Updated 04/19/23 @ 11:35 by Letty Overton) Mother Family history of CHF (congestive heart failure) Family history of diabetes mellitus Family history of stroke Sister Family history of CHF (congestive heart failure) Family history of diabetes mellitus Family history of hypertension Grandmother Family history of cancer Family history of diabetes mellitus Brother No problems noted. Father No problems noted. Social History (Updated 04/19/23 @ 11:38 by Letty Overton) Within the past year, how often did you have a drink containing alcohol: never Score interpretation: A score less than 3 is consistent with normal alcohol consumption. 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 General: The patient appears well but fatigued. no apparent distress . Patient is resting comfortably on cart. Skin: Warm, dry, no pallor noted. No evidence of skin rash. Head: Normocephalic, atraumatic Neck: Supple, trachea mid-line, no tenderness, no lymphadenopathy Eye: Pupils are equal, round and reactive to light, EOMI Ears, Nose, Mouth, and Throat: TM are clear, normal light reflex, patient typically wears hearing aid, no middle ear effusion. No auricle or tragal tenderness. Oral mucosa is moist, lips are dry., no posterior oropharynx erythema or hypertrophy, uvula is mid-line Cardiovascular: Regular Rate and Rhythm Respiratory: Patient is in no distress, no accessory muscle use, lungs are clear to auscultation, no wheezing, rales or rhonchi. Chest Wall: no tenderness Back: non-tender, no CVA tenderness Musculoskeletal: normal ROM, no tenderness, no swelling GI: Normal bowel sounds, no tenderness to palpation, no masses appreciated. No rebound, guarding, or rigidity noted. Abdomen appears nonsurgical Neurological: A&O x4 Psychiatric: Cooperative Constitutional Vital Signs, click to edit/add: Last Vital Signs Temp 98.2 F 09/14/24 14:04 Pulse 55 L 09/14/24 16:31 Resp 10 L 09/14/24 16:31 BP 183/83 H 09/14/24 16:31 Pulse Ox 98 09/14/24 16:31 O2 Del Method Room Air 09/14/24 14:38 Course Vital Signs Vital signs: Vital Signs Temperature 98.2 F 09/14/24 14:04 Pulse Rate 67 09/14/24 14:04 Respiratory Rate 24 H 09/14/24 14:04 Blood Pressure 167/73 H 09/14/24 14:04 Pulse Oximetry 99 09/14/24 14:04 Oxygen Delivery Method Room Air 09/14/24 14:04 Temperature 98.2 F 09/14/24 14:04 Pulse Rate 55 L 09/14/24 16:31 Respiratory Rate 10 L 09/14/24 16:31 Blood Pressure 183/83 H 09/14/24 16:31 Pulse Oximetry 98 09/14/24 16:31 Oxygen Delivery Method Room Air 09/14/24 14:38 Medical Decision Making MDM Narrative Medical decision making narrative: Patient recovering from recent URI illness with positive COVID test. history of Multiple myeloma, but no recent treatments. Oncology/ Dr. patel- Nephrology. She was exposed to her . Patient notes diarrhea for the past week generalized fatigue, she has a port and states that she has not had much of an appetite, but can still drink fluids on occasion. Daughter states she is not drinking enough. No reported fever. Recommend laboratory studies and chest x-ray for further evaluation. Patient with illness that started over a week ago, she completed her 5 days of zone. Antibiotic. Patient with notable elevation in her white blood cell count and lymphocytes. We discussed her persistent diarrhea and no prior CT of her abdomen on file. Patient and family agreeable to CT evaluation. CT with no evidence of intra abdominal process, patient does have possible UTI, urine culture pending. Will be treated with Keflex 250 mg twice daily for 5 days pending culture result. We discussed taking p.o. fluids at home, protein rich foods. She had a 1.5-hour repeat troponin, and clinically feels better now ambulating to the restroom after 2 L IV fluid hydration. The patient is to followup with primary care physician in next 2-3 days or to return to the emergency department should any of the signs or symptoms worsen or new symptoms develop. Patient had questions answered. The patient agrees with the following Diagnosis and Treatment plan and the patient will be discharged home. Lab Data Lab results reviewed: Yes I reviewed the patient's lab results Lab results narrative: Dehydration, chronic renal disease. Labs: Lab Results 09/14/24 09/14/24 09/14/24 Range/Units 14:25 16:00 16:05 WBC 15.6 H (4.0-11.0) 10^3/uL RBC 3.95 L (4.20-5.40) 10^6/uL Hgb 12.7 (12.0-16.0) g/dL Hct 37.5 (36.0-48.0) % MCV 94.9 (81.0-99.0) fL MCH 32.2 (26.7-34.0) pg MCHC 33.9 (29.9-35.2) g/dL RDW 12.8 (11.0-15.0) % Plt Count 229 (150-450) 10^3/uL MPV 11.3 (9.5-13.5) fL Neut % (Auto) 74.3 (43.0-75.0) % Lymph % (Auto) 19.0 L (20.5-60.0) % Sutter % (Auto) 5.1 (1.7-12.0) % Eos % (Auto) 0.5 L (0.9-7.0) % Baso % (Auto) 0.1 L (0.2-2.0) % Neut # (Auto) 11.6 H (1.4-6.5) 10^3/uL Lymph # (Auto) 3.0 (1.2-3.8) 10^3/uL Sutter # (Auto) 0.8 (0.3-0.8) 10^3/uL Eos # (Auto) 0.1 (0.0-0.7) 10^3/uL Baso # (Auto) 0.0 (0.0-0.1) 10^3/uL Abs Immat Gran (auto) 0.15 H (0.00-0.03) 10^3/uL Imm/Tot Granulo (auto) 1.0 H (0.0-0.5) % Sodium 142 (136-145) mmol/L Potassium 3.8 (3.5-5.1) mmol/L Chloride 111 H (98-107) mmol/L Carbon Dioxide 18.4 L (21.0-32.0) mmol/L Anion Gap 16.4 BUN 47.0 H (7.0-18.0) mg/dL Creatinine 2.86 H (0.55-1.02) mg/dL Est GFR ( Amer) 19 L (>=60 mL/min/1.73m^2) Est GFR (Non-Af Amer) 16 L (>=60 mL/min/1.73m^2) BUN/Creatinine Ratio 16.4 Glucose 218 H (74-106) mg/dL Calcium 8.2 L (8.5-10.1) mg/dL Total Bilirubin 0.3 (0.2-1.0) mg/dL AST 19 (15-37) U/L ALT 32 (14-59) U/L Alkaline Phosphatase 84 (46-116) U/L Troponin I High Sens 11.4 6.9 (4.0-51.3) pg/mL Total Protein 5.9 L (6.4-8.2) g/dL Albumin 2.6 L (3.4-5.0) g/dL Globulin 3.3 g/dL Albumin/Globulin Ratio 0.8 Lipase 78.0 H (16.0-77.0) U/L TSH & Free T4 Interp 1.683 (0.358-3.740) uIU/mL Urine Color Lt. yellow (YELLOW) Urine Clarity Clear (CLEAR) Urine pH 6.0 (5.0-9.0) Ur Specific [place] 1.020 (1.005-1.025) Urine Protein Trace (NEG/TRACE) mg/dL Urine Glucose (UA) Negative (NEGATIVE) mg/dL Urine Ketones Negative (NEGATIVE) mg/dL Urine Occult Blood Trace-i (NEGATIVE) Urine Nitrite Negative (NEGATIVE) Urine Bilirubin Negative (NEGATIVE) Urine Urobilinogen 0.2 (0.2-1.0) EU/dL Ur Leukocyte Esterase Moderate A (NEGATIVE) Urine RBC 2-5 A (0-2) #/HPF Urine WBC 5-10 A (NONE SEEN) #/HPF Ur Squamous Epith Cells Few A (NONE/RARE) #/LPF Urine Crystals None seen (None Seen) #/HPF Urine Bacteria Trace A (NONE SEEN) #/HPF Urine Casts None seen (NONE SEEN) #/LPF Urine Mucus None seen (NONE SEEN) Ur Culture Indicated? Yes Imaging Data CT scan - abdomen: Radiologist's impression: ITS Impressions Chest X-Ray 09/14/24 14:21 IMPRESSION: No acute cardiopulmonary process Electronically authenticated by: KENJI STEIN Date: 09/14/2024 14:58 Abdomen/Pelvis CT 09/14/24 15:15 IMPRESSION: No acute intraperitoneal abnormality Electronically authenticated by: KENJI STEIN Date: 09/14/2024 15:52 ECG Data Attestation: I personally reviewed and interpreted this ECG as follows: Interpretation: EKG interpretation: Emergency Department physician interpretation, Sinus john at 57, no ectopy, no ST segment elevation, normal axis 1st degree av block. Discharge Plan Discharge Chief Complaint: Weakness Clinical Impression: Upper respiratory tract infection due to COVID-19 virus, Dehydration, Diarrhea, UTI (urinary tract infection) Patient Disposition: Home, Self-Care Time of Disposition Decision: 16:40 Condition: Good Prescriptions / Home Meds: New cephalexin 250 mg capsule 250 mg PO BID 5 Days Qty: 10 0RF No Action acyclovir 400 mg tablet 400 mg PO Q12H atorvastatin 40 mg tablet 40 mg PO .once a day carvedilol 12.5 mg tablet 12.5 mg PO Q12H Xarelto 15 mg tablet 15 mg PO Q24H aspirin 81 mg capsule 81 mg PO DAILY Humulin N NPH Insulin KwikPen 100 unit/mL (3 mL) insulin pen 10 unit subcut BID cholecalciferol (vitamin D3) 25 mcg (1,000 unit) capsule 25 mcg PO BEDTIME B12 1,000 mcg PO .every other day omega 6-apc-dti-fish oil [Fish Oil] 300-1,000 mg capsule 1 cap PO BID sodium bicarbonate 650 mg tablet 650 mg PO BID meclizine 12.5 mg Tablet 25 mg PO QID PRN (Reason: Vertigo) Qty: 30 0RF Print Language: Sami Instructions: Dehydration (ED), Urinary Tract Infection in Women (ED) Additional Instructions: urine culture is pending. Referrals: Karie Mcfadden MD [Primary Care Provider] - As soon as possible
--- NOTE | 2024-09-14 14:21 | XR_ITS ---
The [address] [address] Patient Name: MARTHA GOMEZ MRN: [id number] date: 1940 Sex: F Assigned Patient Location: ER Current Patient Location: ER Accession/Order Number: [id number] Exam Date: 09/14/2024 14:40 Report Date: 09/14/2024 14:58 At the request of: ALY HUNG Procedure: XR chest 1V EXAMINATION: XR chest 1V HISTORY: cough weakness, history of covid COMPARISON: 06/19/2023 TECHNIQUE: AP portable FINDINGS: LUNGS: No significant pulmonary parenchymal abnormalities. VASCULATURE: No increased pulmonary vasculature. PLEURA: No pneumothorax, effusion, or pleural thickening. Stable elevation right hemidiaphragm CARDIAC: No cardiomegaly or cardiac silhouette abnormality. MEDIASTINUM: No visible mass or adenopathy. BONES: No fracture or visible bone lesion. OTHER: Accessed right Port-A-Cath, the tip projects over the distal superior vena cava XR/XR chest 1V IMPRESSION: No acute cardiopulmonary process Electronically authenticated by: KENJI STEIN Date: 09/14/2024 14:58
--- NOTE | 2024-09-14 14:31 | ECG_ITS ---
The [facility] Test Date: 2024-09-14 Pat Name: MARTHA GOMEZ Department: Room: - Gender: Female [employer] Order Clerk: : 1940 Requested By: CURT CLARK Order Number: [id number] Reading MD: YOEL MAIN Measurements Intervals [place] Rate: 57 P: 63 [place]: 214 QRS: 53 QRSD: 92 T: 93 QT: 428 QTc: 422 Interpretive Statements 1100 Sinus rhythm 1102 Sinus arrhythmia 2231 First degree AV block 4068 Nonspecific Twave abnormality 9150 abnormal ECG Compared to ECG 06/19/2023 03:02:33 No significant changes Electronically Signed On 09-14-2024 18:38:59 EDT by YOEL MAIN
[2024-09-14 14:44] LABS: Basophils Percent Auto 0.1 % (0.2-2.0); Eosinophils Absolute Auto 0.1 10^3/uL (0.0-0.7); Eosinophils Percent Auto 0.5 % (0.9-7.0); Hematocrit 37.5 % (36.0-48.0); Hemoglobin 12.7 g/dL (12.0-16.0); Immature Granulocytes Abs Auto 0.15 10^3/uL (0.00-0.03); Mean Corpuscular HGB Conc 33.9 g/dL (29.9-35.2); Mean Corpuscular Hemoglobin 32.2 pg (26.7-34.0); Mean Corpuscular Volume 94.9 fL (81.0-99.0); Mean Platelet Volume 11.3 fL (9.5-13.5); Monocytes Absolute Auto 0.8 10^3/uL (0.3-0.8); Monocytes Percent Auto 5.1 % (1.7-12.0); Neutrophils Absolute Auto 11.6 10^3/uL (1.4-6.5); Neutrophils Percent Auto 74.3 % (43.0-75.0); Platelet Count 229 10^3/uL (150-450); Red Blood Count 3.95 10^6/uL (4.20-5.40); Red Cell Distribution Width 12.8 % (11.0-15.0); White Blood Count 15.6 10^3/uL (4.0-11.0)
[2024-09-14] MEDS: 0.9 % SODIUM CHLORIDE 1,000 ML 999 ML IV ×2 (14:54→15:57)
[2024-09-14] MEDS: ONDANSETRON PF 4 MG/2 ML VIAL IV (14:54)
[2024-09-14] MEDS: DICYCLOMINE HCL 10 MG CAPSULE 20 MG PO (14:55)
[2024-09-14 15:05] LABS: Alanine Aminotransferase 32 U/L (14-59); Albumin Globulin Ratio 0.8; Albumin Level 2.6 g/dL (3.4-5.0); Alkaline Phosphatase 84 U/L (46-116); Anion Gap 16.4; Aspartate Amino Transferase 19 U/L (15-37); BUN Creatinine Ratio 16.4; Bilirubin Total 0.3 mg/dL (0.2-1.0); Calcium 8.2 mg/dL (8.5-10.1); Carbon Dioxide 18.4 mmol/L (21.0-32.0); Chloride 111 mmol/L (98-107); Estimated GFR (African America 19 (>=60 mL/min/1.73m^2); Estimated GFR (Non-African Ame 16 (>=60 mL/min/1.73m^2); Globulin 3.3 g/dL; Glucose 218 mg/dL (74-106); Potassium 3.8 mmol/L (3.5-5.1); Sodium 142 mmol/L (136-145); Total Protein 5.9 g/dL (6.4-8.2); Troponin I High Sensitivity 11.4 pg/mL (4.0-51.3)
[2024-09-14 15:09] LABS: TSH W/ REFLEX FT4 1.683 uIU/mL (0.358-3.740)
--- NOTE | 2024-09-14 15:15 | CT_ITS ---
The [address] [address] Patient Name: MARTHA GOMEZ MRN: [id number] date: 1940 Sex: F Assigned Patient Location: ER Current Patient Location: ER Accession/Order Number: [id number] Exam Date: 09/14/2024 15:30 Report Date: 09/14/2024 15:52 At the request of: ALY HUNG Procedure: CT abdomen pelvis wo con EXAMINATION: CT abdomen pelvis wo con HISTORY: diarrhea/ weakness COMPARISON: No relevant comparison available. TECHNIQUE: Axial, Coronal, and Sagittal images were created without IV contrast. Dose reduction techniques were achieved by using automated exposure control and/or adjustment of mA and/or kV according to patient size and/or use of iterative reconstruction technique. FINDINGS: LUNG BASES: No visible pulmonary or pleural disease. LIVER: No enlargement, atrophy, abnormal density, or significant focal lesion. BILIARY: Surgical clips from cholecystectomy PANCREAS: No lesion, fluid collection, ductal dilatation, or atrophy. SPLEEN: No enlargement or focal lesion. ADRENALS: No mass or enlargement. KIDNEYS: Right cortical hypodensity likely a cyst. Bilateral cortical atrophy, left greater than right. No hydronephrosis or obstructing nephrolithiasis BOWEL/MESENTERY: Mild colonic diverticulosis without evidence of acute diverticulitis. Nonobstructive bowel gas pattern. Normal appendix AORTA/VASCULAR: No aortic aneurysm. Moderate calcific atherosclerosis RETROPERITONEUM: No mass or adenopathy. LYMPH NODES: No adenopathy. URINARY BLADDER: No visible focal wall thickening, lesion, or calculus. PELVIC ORGANS: Hysterectomy ABDOMINAL WALL: No mass or hernia. BONES: No bony lesion or fracture. OTHER: Negative. CT/CT abdomen pelvis wo con IMPRESSION: No acute intraperitoneal abnormality Electronically authenticated by: KENJI STEIN Date: 09/14/2024 15:52
[2024-09-14] MEDS: FAMOTIDINE/PF 20 MG/2 ML VIAL IV (15:21)
[2024-09-14 16:14] LABS: Bilirubin Urine NEGATIVE (NEGATIVE); Blood Urine TRACE-I (NEGATIVE); Clarity Urine CLEAR (CLEAR); Color Urine LT. YELLOW (YELLOW); Glucose Urine UA NEGATIVE (NEGATIVE); Ketones Urine NEGATIVE (NEGATIVE); Leukocyte Esterase Urine MODERATE (NEGATIVE); Nitrite Urine NEGATIVE (NEGATIVE); Protein Urine TRACE mg/dL (NEG/TRACE); Urobilinogen Urine 0.2 EU/dL (0.2-1.0)
[2024-09-14 16:15] LABS: Urine Microscopic Indicated YES
[2024-09-14 16:24] LABS: Bacteria Urine TRACE #/HPF (NONE SEEN); Mucus Urine NONE SEEN (NONE SEEN); Squamous Epithelial Cell Urine FEW #/LPF (NONE/RARE)
[2024-09-14 16:25] LABS: Cast Seen? NONE SEEN #/LPF (NONE SEEN); Crystals Seen? None Seen #/HPF (None Seen); Urine Culture Indicated YES
[2024-09-14 16:37] LABS: Troponin I High Sensitivity 6.9 pg/mL (4.0-51.3)
[2024-09-14] MEDS: CEPHALEXIN 250 MG CAPSULE PO (16:45)
== END 2024-09-14 17:18 | disposition home or self-care (01) ==
PROVIDERS: Personal Emergency Response Attendant; Emergency Provider Emergency Medicine; PCP Family Medicine
DX: U07.1 COVID-19 (principal); R19.7 Diarrhea, unspecified; Z90.49 Acquired absence of other specified parts of digestive tract; Z90.710 Acquired absence of both cervix and uterus; C90.00 Multiple myeloma not having achieved remission; J06.9 Acute upper respiratory infection, unspecified; E86.0 Dehydration; N39.0 Urinary tract infection, site not specified
CPT/HCPCS: 36415; 71045; 74176; 80053; 81001; 83690; 84443; 84484; 85025; 87086; 93005; 96361; 96374; 96375; 99285; J2405

== ENCOUNTER 2024-09-29 16:56 | Outpatient (REF) | payer MEDICARE, OTHER, SELFPAY ==
--- OUTSIDE RECORDS SUMMARY | 2024-09-29 17:01 | XMS_ITS | CCD ---
Author Organization [facility] Care Team Providers Care Protective Signal Operations Supervisor Name Role Phone Curt Clark Unavailable Unavailable Unavailable CURT CLARK Primary Care Physician Lopez, Akin Unavailable Quita Ayon Unavailable MD Curt Clark Primary Care Provider [phone] DO Claire Choi II Attending Provider Curt Clark Unavailable MD Curt Clark Primary Care Provider [phone] DO Claire Choi II Attending Provider DR CURT CLARK Primary Care Unavailable AMBER, DR CURT Patel Consulting Unavailable CLARK, DR CURT Patel Attending Unavailable CLARK, DR CURT Patel Admitting Unavailable LOPEZ, AKIN Attending Unavailable LOPEZ, AKIN Admitting Unavailable AMBER, DR CURT Patel Primary Care Unavailable LIBERTY ROSSI Consulting Unavailable LOPEZ, AKIN Consulting Unavailable AMBER, DR CURT Patel Primary Care Unavailable TYREE PARK Attending Unavailable XAVIER, TYREE Admitting Unavailable TYREE [...] II Attending Provider Nehemias Fernandez II Unavailable Curt Clark MD Primary Care Provider Unavailable Curt Clark MD Primary Care Provider MD Curt Clark Primary Care Provider DO Claire Choi II Attending Provider [phone] Tyree PARK Attending Unavailable Tyree PARK Attending Unavailable Tyree PARK Attending Unavailable MD Curt Clark Primary Care Provider RAMAKRISHNA Connolly Attending Provider ARTEMIO GRAJEDA Attending Unavailable MD Curt Clark Primary Care Provider DO Claire Chio II Attending Provider [phone] MD Curt Clark Attending Provider [phone] Curt Clark MD Primary Care Provider [phone] MD Curt Clark Primary Care Provider DO Claire Choi II Attending Provider DO Claire Choi II Attending Provider [phone] ELICIA RHODES Attending Unavailable CURT CLARK Primary Care Unavailable ELICIA RHODES Attending Unavailable ELICIA RHODES Referring Unavailable CURT CLARK Primary Care Unavailable ELICIA RHODES Referring Unavailable CURT CLARK Primary Care Unavailable MD Curt Clark Primary Care Provider RAMAKRISHNA Connolly Attending Provider Curt Clark MD Primary Care Provider [phone] MD Curt Clark Primary Care Provider RAMAKRISHNA Connolly Attending Provider DO Jesse Valdez Emergency Provider MD Pool Buck Admit Provider MD Pool Buck Attending Provider MD Cristiano Diaz Other Provider MD Sherron Li Other Provider MD Pj Montes Other Provider RAMAKRISHNA Pretty Other Provider DO Isaias Morgan Jr Other Provider [phone] MD Trent Patterson Attending Provider Curt Clark Primary Care Unavailable Curt Clark Attending Unavailable Curt Clark Admitting Unavailable Curt Clark Primary Care Unavailable Misti Connolly Admitting Unavail able Misti Connolly Attending Unavail able Curt Clark Primary Care Unavailable Cristiano Diaz Consulting Unavaila Pool Chapa Admitting Unavailab Trent Holley Attending Unavailable Sherron Li Consulting Unavailable Pj Montes Consulting Unavailable Kristan Pretty Consulting Unavailable Isaias Morgan Jr Consulting Unavailalek e Allergies Allergy Classification Reported Allergen(s) Allergy Type Date of Onset Reaction(s) Facility lenalidomide (1 source) lenalidomide Drug Allergy 04-12-20 24 Rash, itching [facility] oxybutynin (1 source) oxybutynin Drug Allergy 04-12-20 24 Rash, rash, hives [facility] pregabalin (1 source) pregabalin Drug Allergy 04-12-20 24 double vision [facility] (20 sources) oxybutynin; Translations: [oxybutynin] Drug Allergy 07-13-20 22 Hives, Rash [facility] 250 DO Work Phone: (20 sources) lenalidomide; Translations: [lenalidomide] Drug Allergy 08-24-20 16 Unknown, Rash, itching, Rash, itching [facility] (20 sources) pregabalin; Translations: [pregabalin] Drug Allergy 07-13-20 22 Unknown, double vision [facility] (11 sources) pregabalin; Translations: [Lyrica] Drug Allergy DOUBLE VISION [facility] (10 sources) REVILID Propensity to adverse reactions ITCHY [facility] Other (1 source) lenalidomide Drug Allergy 08-24-20 [facility] (1 source) oxybutynin Drug Allergy 12-27-19 [facility] (1 source) Allergies Reconciled Propensity to adverse reactions Unknown [facility] Other (1 source) patient allergy list reviewed by nurse or physicia Propensity to adverse reactions 11-24-19 Comment:Done [facility] Other (1 source) Acetaminophen / HYDROcodone Drug Allergy 03-05-20 [facility] (1 source) Pregabalin Propensity to adverse reactions 03-05-20 [facility] (1 source) lenalidomide Drug Allergy 09-24-20 [facility] (1 source) oxybutynin Drug Allergy 09-24-20 [facility] (1 source) pregabalin Drug Allergy 09-24-20 [facility] Medications Current Medications Medication Drug Class(es) Dates Sig (Normalized) Sig (Original) acyclovir 400 mg oral tablet (20 sources) Herpesvirus Nucleoside Analog DNA Polymerase Inhibitor, Herpes Simplex Virus Nucleoside Analog DNA Polymerase Inhibitor, Herpes Zoster Virus Nucleoside Analog DNA Polymerase Inhibitor Start: 01-02-2024 Acyclovir Active 0 .ROUTE .COMPLEX 180 January 02, 2024 12:10pm TAKE 1 TABLET TWICE A DAY Start: 07-14-2017 End: 03-23-2018 take 1 tablet by mouth once daily Acyclovir Discontinued 1 TAB PO daily November 29, 2017 4:03pm March 23, 2018 2:55pm Start: 10-05-2016 End: 01-02-2024 take 400 mg by mouth twice daily Acyclovir Discontinued 400 MG PO Twice daily November 07, 2019 1:31pm January 02, 2024 12:10pm apixaban 5 mg oral tablet (1 source) Factor Xa Inhibitor Start: 09-19-2024 take 1 tablet by mouth twice daily Apixaban (Eliquis) 5 mg tablet Active 5 MG PO Twice daily 180 September 19, 2024 12:00am finish Xarelto supply that you have; start Eliquis after that aspirin 81 mg chewable tablet (20 sources) Platelet Aggregation Inhibitor, Nonsteroidal Anti-inflammatory Drug Start: 10-18-2018 take 81 mg by mouth once daily Aspirin Active 81 MG PO Daily October 18, 2018 12:00am Start: 07-14-2017 End: 08-23-2018 take 81 mg by mouth once daily Aspirin Discontinued 81 MG PO Daily 7 7 August 10, 2018 11:00pm August 23, 2018 7:42am Start: 10-05-2016 take 81 mg by mouth once daily aspirin 81 mg, Oral, Daily Start Date: 10/05/16 Status: Ordered atorvastatin 40 mg oral tablet (20 sources) HMG-CoA Reductase Inhibitor Start: 01-29-2020 Lipitor Oral, Daily, Refills(s) 0 Start Date: 01/29/20 Status: Ordered Start: 08-23-2018 take 40 mg by mouth once daily Atorvastatin Active 40 MG PO Daily August 22, 2018 11:00pm Start: 07-14-2017 End: 08-23-2018 take 1 tablet by mouth at bedtime Atorvastatin Discontinued 1 TAB PO Bedtime July 13, 2017 11:00pm August 23, 2018 7:42am azithromycin 250 mg oral tablet (5 sources) [...] Start: 02-11-2022 take 1 capsule by mo [facility] three times daily as needed Benzonatate 100 [...] tablet Active 12.5 MG PO Twice daily November 07, 2019 12:00am must administer with a meal/food Start: 07-14-2017 End: 11-07-2019 take 6.25 mg by mouth twice daily Carvedilol Discontinued 6.25 MG PO Twice daily July 13, 2017 11:00pm November 07, 2019 2:50pm Start: 10-05-2016 take 2 tablets by mo [...] Tablet Active 1000 UNIT PO Daily August 09, 2018 11:00pm Start: 10-05-2016 take 1 tablet by yaima th once daily Vitamin D3 5000 intl units oral tablet 5,000 International_Unit = 1 tab(s), Oral, Daily, Prophylaxis Start Date: 10/05/16 Status: Ordered take 1 tablet by yaima th once daily cholecalciferol (Vitamin D-3) 25 MCG (1000 UT) tablet Take 1 tablet (25 mcg) by mouth once daily. Active daratumumab (2 sources) [id number] Cytolytic Antibody Start: 12-17-2019 daratumumab mg, IV, q6wk, Refills(s) 0 Start Date: 12/17/19 Status: Ordered docosahexaenoic acid 120 mg / eicosapentaenoic acid 180 mg oral capsule (12 sources) take 1 capsule by mouth twice daily fish oil concentrate ([place]-3) 120-180 mg capsule Take 1 capsule (1 g) by mouth 2 times a day. Active take 1 capsule by mouth twice da lilia Fish Oil 1000 MG Oral Capsule Take 1 capsule twice daily Quantity: 0 Refills: 0 Ordered: 25-Aug-2021 DO Active insulin isophane, human 100 unt/ml injectable suspension (20 sources) Start: 07-05-2024 Insulin Nph Is oph U-100 Human (Humulin N Nph U-100 Insulin) 100 unit/mL suspension Active 15 UNIT SUBCUT Twice daily July 05, 2024 12:13pm Start: 01-04-2024 End: 07-05-2024 Insulin Nph Isoph U-100 Amalia n (Humulin N Nph U-100 Insulin) 100 unit/mL suspension Discontinued UNIT SUBCUT January 04, 2024 12:00am July 05, 2024 12:15pm FreeTextSi units (using [employer] brand) Subcutaneous 15 units twice a day; Note: Source Status: Taking; Provider: Gabo Ace Start: 08-10-2018 End: 01-04-2024 Insulin Nph Isoph U-100 Amalia n (Humulin N Nph Insulin Kwikpen) 100 unit/mL (3 mL) Insulin Pen Discontinued 12 UNIT SUBCUT Every evening August 09, 2018 11:00pm January 04, 2024 11:03am insulin NPH, Iso phane, (HumuLIN N,NovoLIN N) [...] scale #1 Subcutaneous before meals tid Not-Taking magnesium chloride 598 mg delayed release oral tablet (1 source) Start: 09-19-2024 take 1 tablet by mouth once daily Magnesium Chloride (Slow-Mag) 71.5 mg tablet,delayed release (DR/EC) Active 71.5 MG PO Daily 60 September 19, 2024 12:00am meclizine hydrochloride 12.5 mg oral tablet (12 sources) Antiemetic take 1 tablet by mouth every twelve hours Meclizine HCl 12.5 MG 1 tablet as needed Orally every 12 hrs for 10 days Active [place] 3-Jzi-Wbz-Fish Oil (Fish Oil) 1,000 mg (120 mg-180 mg) capsule (5 sources) Start: 07-05-2024 [place] 3-Dha-Ep a-Fish Oil (Fish Oil) 1,000 mg (120 mg-180 mg) capsule Active 1 CAP PO Every 48 hours July 04, 2024 11:00pm Start: 07-05-2024 [place] 3-Dha-Ep a-Fish Oil (Fish Oil) 1,000 mg (120 mg-180 mg) capsule Active 1 CAP PO Every 48 hours July 05, 2024 12:00am [place]-3 Fatty Acids (FISH OIL PO) (1 source) [place]-3 Fatty Acids (FISH OIL PO) Take by mouth Active Relion insulin (2 sources) Start: inject 10 [IU] by subcutaneous injection at bedtime Relion insulin Relion insulin, 10 unit(s), SubCutaneous, Bedtime Start Date: 03/03/21 Status: Ordered rivaroxaban 15 mg oral tablet (20 sources) Factor Xa Inhibitor Start: 0 Xarelto Oral Start Date: 12/24/19 Status: Ordered Start: 11-07-2019 End: 09-19-2024 take 1 tablet by mouth once daily at dinner Rivaroxaban (Xarelto) 15 mg tablet Discontinued 15 MG PO Daily November 07, 2019 12:00am September 19, 2024 4:44pm must administer with evening meal 0.25 mg, 0.5 mg dose 1.5 ml semaglutide 1.34 mg/ml pen injector (5 sources) Start: 03-26-2021 Ozempic (0.25 or 0.5 MG/DOSE) 2 MG/1.5ML 0.5mg Subcutaneous once weekly for 84 days March, Active sodium bicarbonate 650 mg oral tablet (20 sources) Start: 09-18-2024 take 1300 mg by mouth three times daily Sodium Bicarbonate Active 1300 MG PO Three times daily 0 September 18, 2024 12:00am Start: 07-14-2017 End: 09-19-2024 take 650 mg by mouth twice daily Sodium Bicarbonate Discontinued 650 MG PO Twice daily July 13, 2017 11:00pm September 19, 2024 4:44pm take 1 tablet by yaima th twice daily Sodium Bicarbonate 325 MG Oral Tablet Take [...] B-12) Active 1000 MCG PO Daily May 01, 2019 11:00pm Cyanocobalamin ( VITAMIN B-12 PO) Take by mouth Active take 1 tablet by yaima th every [...] / HYDROcodone bitartrate 5 mg oral tablet (15 sources) Opioid Agonist Start: 03-15-2018 End: 07-04-2018 take 1 tablet by mouth every four to six hours Hydrocodone-Aceta minophen Discontinued 1 TAB PO EVERY 4-6 HOURS March 14, 2018 11:00pm July 04, 2018 10:54am amLODIPine 5 mg oral tablet (20 sources) Dihydropyridine Calcium Channel Valentina Start: 11-12-2023 End: 11-11-2024 take 5 mg by mouth once daily Amlodipine Discontinued 5 MG PO Daily July 05, 2024 12:10pm August 20, 2024 9:50am Start: 11-17-2021 amLODIPine Bes ylate 5 MG Oral Tablet Quantity: 90 Refills: 0 Ordered: 16-May-2022 DO Start : 17-Nov-2021 Complete Start: 04-28-2020 Start: 09-20-2018 End: 07-19-2023 take 5 mg by mouth once daily Amlodipine Discontinued 5 MG PO Daily September 20, 2018 12:00am July 19, 2023 9:37am Start: 07-14-2017 End: 12-21-2017 take 1 tablet by mouth once daily Amlodipine Discontinued 1 TAB PO daily July 13, 2017 11:00pm December 21, 2017 9:10am amoxicillin 500 mg oral capsule (15 sources) Penicillin-class Antibacterial Start: 08-10-2018 End: 08-23-2018 take 500 mg by mouth every eight hours Amoxicillin Discontinued 500 MG PO Q8H August 09, 2018 11:00pm August 23, 2018 7:42am cefdinir 300 mg oral capsule (11 sources) Cephalosporin Antibacterial Start: 04-12-2024 End: 05-31-2024 take 300 mg by mouth twice daily Cefdinir Discontinued 300 MG PO Twice daily April 11, 2024 11:00pm May 31, 2024 10:27am Start: 09-26-2023 Cefdinir 300 M G as directed Orally bid for 7 days Sep, Active cephalexin 250 mg oral capsule (20 sources) Cephalosporin Antibacterial Start: 01-08-2020 End: 06-16-2021 take 250 mg by mouth once daily Cephalexin Discontinued 250 MG PO Daily January 08, 2020 12:00am June 16, 2021 8:04am Start: 02-15-2018 End: 03-22-2018 take 250 mg by mouth once daily Cephalexin Discontinued 250 MG PO Daily February 14, 2018 11:00pm March 22, 2018 7:44am ciprofloxacin 500 mg oral tablet (2 sources) [...] (20 sources) Calculi Dissolution Agent, Anti-coagulant Start: 07-05-2024 End: 09-19-2024 take 1 mL by mouth once daily at bedtime Sodium Citrate-Citric Acid (Oracit) 490-640 mg/5 mL solution Discontinued 10 ML PO Daily at bedtime July 05, 2024 12:14pm September 19, 2024 4:44pm Start: 10-06-2021 End: 10-06-2021 take 1 mL by mouth once Sodium Citrate-Citric Acid ( Oracit) 490-640 mg/5 mL Solution Discontinued 10 ML PO Once October 06, 2021 12:00am October 06, 2021 8:56am Start: 09-04-2021 Oracit oral so lution Refill(s) 0 Start Date: 09/04/21 Status: Ordered Start: 06-16-2021 End: 07-05-2024 take 1 mL by mouth four times daily Sodium Citrate-Citric Acid (Oracit) 490-640 mg/5 mL Solution Discontinued 10 ML PO Four times daily June 15, 2021 11:00pm July 05, 2024 12:15pm Sod Citrate-Citr ic Acid (Oracit) 490-640 MG/5ML solution Take 10 mL by mouth TAKE 10ML BY MOUTH AFTER MEALS AND AT BEDTIME DILUTED WITH 1-3 OUNCES OF WATER OR JUICE Active sodium citrate-c itric acid (Oracit) 490-640 mg/5 mL solution Take by mouth once daily. Active Oracit 490-640 M G/5ML 10 ml after meals and at bedtime diluted with 1 to 3 ounces of water or juice Orally bid for 90 day(s) Active clopidogrel 75 mg oral tablet (20 sources) [id number] Platelet Inhibitor Start: 08-11-2018 End: 11-07-2019 take 1 tablet by mouth once daily Clopidogrel (Plavix) 75 mg tablet Discontinued 75 MG PO Daily August 23, 2018 7:41am November 07, 2019 2:50pm cyclobenzaprine hydrochloride 10 mg oral tablet (15 sources) Muscle Relaxant Start: 11-04-2020 End: 07-19-2023 take 10 mg by mouth three times daily Cyclobenzaprine Discontinued 10 MG PO Three times daily November 04, 2020 12:00am July 19, 2023 9:37am DULoxetine 20 mg delayed release oral capsule (6 sources) Serotonin and Norepinephrine Reuptake Inhibitor Start: 05-31-2024 End: 07-05-2024 take 1 capsule by mouth once daily Duloxetine (Cymbalta) 20 mg capsule,delayed release(DR/EC) Discontinued 20 MG PO Daily May 30, 2024 11:00pm July 05, 2024 12:11pm ergocalciferol 1.25 mg oral capsule (15 sources) Provitamin D2 Compound Start: 07-14-2017 End: 08-10-2018 take 1 capsule by mouth once daily Ergocalciferol (Vitamin D2) (Vitamin D2) 50,000 unit Capsule Discontinued 1 CAP PO daily July 13, 2017 11:00pm August 10, 2018 10:37am Fish Oils (20 sources) Start: 07-14-2017 End: 07-05-2024 take 1 capsule by mouth twice daily Fish Oil Discontinued 1200 CAP PO Twice daily July 13, 2017 11:00pm July 05, 2024 12:12pm Start: 07-14-2017 End: 07-05-2024 take 1 capsule by mouth twice daily Fish Oil Discontinued 1200 CAP PO Twice daily July 14, 2017 12:00am July 05, 2024 1:12pm Start: 07-14-2017 take 1 capsule by mo [...] Status: Ordered take 1 capsule by mo [facility] twice daily take 1 capsule by mo [facility] twice daily Fish Oil 1000 MG 1 capsule Orally Twice a day Active Insulin Lispro (Humalog Kwikpen Insulin) 100 unit/mL Insulin Pen (13 sources) Start: 07-14-2017 End: 01-04-2024 Insulin Lispro [...] SLIDING SCALE linagliptin 5 mg oral tablet (15 sources) Dipeptidyl Peptidase 4 Inhibitor Start: 01-08-2020 End: 09-09-2020 take 1 tablet by mouth once daily Linagliptin (Tradjenta) 5 mg tablet Discontinued 5 MG PO Daily January 08, 2020 12:00am September 09, 2020 9:04am 24 hr oxybutynin chloride 10 mg extended release oral tablet (15 sources) Cholinergic Muscarinic Antagonist Start: 02-15-2018 End: 03-22-2018 take 10 mg by mouth once daily Oxybutynin Chloride Discontinued 10 MG PO Daily February 14, 2018 11:00pm March 22, 2018 7:43am predniSONE 20 mg oral tablet (20 sources) Start: 01-02-2021 End: 05-19-2021 take 20 mg by mouth once daily Prednisone Discontinued 20 MG PO Daily January 02, 2021 12:00am May 19, 2021 7:58am 20mg PO daily for two days starting the day after each Daratumumab/Hyaluro nidase dose. Start: 07-14-2017 End: 05-18-2018 take 1 tablet by mouth once daily Prednisone Discontinued 1 TAB PO As Directed July 13, 2017 11:00pm May 18, 2018 7:33am once daily on and Fridays after chemo predniSONE 50 MG Oral for 5 Days Active PROCRIT INJECTION - 1000 uni ts (20 sources) Start: 07-12-2014 PROCRIT INJECT ION - 1000 units Jun,[id number] units Start: 07-12-2014 PROCRIT INJECT ION - 1000 units Jun, [id number] U raNITIdine 150 mg oral tablet (15 sources) Histamine-2 Receptor Antagonist Start: 03-15-2018 End: 07-04-2018 take 150 mg by mouth once daily at bedtime Ranitidine Hcl Discontinued 150 MG PO Daily at bedtime March 14, 2018 11:00pm July 04, 2018 10:55am Start: 03-15-2018 End: 07-04-2018 take 150 mg [...] Translations: [Cerebellar stroke] Onset: 8 12-17-2019 Chronic Administrative/socia l admission (3 sources) Other reduced mobility; Translations: [Impaired mobility and activities of daily living] Onset: 4 09-18-2024 Episodic Aortic; peripheral; and visceral artery aneurysms (20 sources) Ascending aorta dilatation; Translations: [Thoracic aortic ectasia] Onset: 3 10-04-2023 Chronic Calculus of urinary tract (20 sources) Kidney stone; Translations: [Calculus of kidney] Onset: 4 Resolved: 2 Episodic Cardiac dysrhythmias (20 sources) Persistent atrial fibrillation; Translations: [Atrial fibrillation] Onset: 3 01-08-2020 Chronic Cardiac dysrhythmias (15 sources) Palpitations; Translations: [Palpitations] 01-26-2020 Episodic Chronic [...] kidney disease] Chronic Deficiency and other anemia (15 sources) Anemia; Translations: [Anemia, unspecified] 09-09-2020 Episodic Deficiency and other anemia (15 sources) Nutritional anemia; Translations: [Vitamin B12 deficiency [...] 4 12-17-2019 Chronic Diabetes mellitus without complication (20 sources) Glycosuria; Translations: [Glycosuria] Onset: 2 Episodic Diseases of mouth; excluding dental (11 sources) Lesion of oral mucosa; Translations: [Other lesions of oral mucosa] Episodic Disorders of lipid metabolism (20 sources) Hyperlipidemia; Translations: [Other and unspecified hyperlipidemia] Onset: 3 12-17-2019 Chronic Essential hypertension (20 sources) Hypertensive disorder; Translations: [Unspecified essential hypertension] Onset: 3 12-17-2019 Chronic Fluid and electrolyte disorders (20 sources) Acidosis; Translations: [Acidemia] Onset: 1 Resolved: [...] CHEMO] Onset: 2 Chronic Malaise and fatigue (7 sources) Weakness; Translations: [Asthenia] Onset: 4 Episodic Mood disorders (19 sources) Depression; Translations: [Depressive disorder] Onset: 5 06-11-2024 Chronic Multiple myeloma (20 sources) Multiple myeloma; Translations: [Multiple myeloma, without mention of having achieved remission] Onset: 4 Resolved: 2 12-17-2019 Chronic Nonspecific chest pain (6 sources) Chest pain; Translations: [Chest pain, Other] Onset: 6 09-18-2024 Episodic Nutritional deficiencies (20 sources) Vitamin D deficiency; Translations: [Vitamin D deficiency, unspecified] Onset: 1 Resolved: 2 Chronic Nutritional deficiencies (15 sources) Cobalamin deficiency; Translations: [Deficiency of other specified B group vitamins] 03-19-2020 Episodic Other aftercare (20 sources) Drug therapy finding; Translations: [oysterman (current) use of systemic steroids] Episodic Other aftercare (20 sources) Long-term current use of insulin; Translations: [skilled nursing (current) use of insulin] 01-03-2024 Episodic Other aftercare (1 source) skilled nursing (current) use of aspirin; Translations: [HALFWAY CURRENT USE OF ASPIRIN] Onset: 3 Episodic Other aftercare (1 source) Other [facility] (current) drug therapy; Translations: [OTH HALFWAY CURRENT DRUG THERAPY] Onset: 3 Episodic Other aftercare (1 source) skilled nursing (current) use of insulin; Translations: [HALFWAY CURRENT USE OF INSULIN] Onset: 3 Episodic Other aftercare (1 source) oysterman (current) use of anticoagulants; Translations: [HALFWAY CURRNT USE ANTICOAGULANTS] Onset: 3 Episodic Other aftercare (10 sources) Long-term current use of steroid; Translations: [skilled nursing (current) use of systemic steroids] 01-03-2024 Episodic Other circulatory disease (1 source) Personal history of transient ischemic attack (TIA), and cerebral infarction without residual deficits; Translations: [PERS HX TIA AND CI NO RESID DEFICIT] Onset: 3 Episodic Other circulatory disease (11 sources) Elevated blood-pressure reading without diagnosis of hypertension; Translations: [Elevated blood-pressure reading, without diagnosis of hypertension] Episodic Other connective tissue disease (15 sources) Monoparesis - leg; Translations: [Other symptoms [...] Chronic Other diseases of kidney and ureters (13 sources) Secondary hyperparathyroidism of renal origin; Translations: [Secondary hyperparathyroidism (of renal origin)] Onset: 1 Resolved: 2 Chronic Other diseases of kidney and ureters (20 sources) Secondary hyperparathyroidism; Translations: [Secondary hyperparathyroidism of renal origin] 01-04-2024 Chronic Other ear and sense organ disorders (15 sources) Hearing loss; Translations: [Unspecified hearing loss, [...] [Shortness of breath] Onset: 3 Episodic Other lower respiratory disease (2 sources) Dyspnea; Translations: [Dyspnea, unspecified] 09-18-2024 Episodic Other lower respiratory disease (2 sources) Dyspnea, unspecified; Translations: [Other respiratory abnormalities] 09-18-2024 Episodic Other nervous system disorders (16 sources) Abnormal gait; Translations: [Unsteadiness on feet] Onset: 4 09-21-2017 Episodic Other nervous system disorders (15 sources) Unsteadiness on feet; Translations: [Abnormality of gait] 07-13-2022 Episodic Other nervous system disorders (20 sources) Impairment of balance; Translations: [Other abnormalities [...] nutritional; endocrine; and metabolic disorders (2 sources) Hypomagnesemia; Translations: [Hypomagnesemia] 09-18-2024 Chronic Other nutritional; endocrine; and metabolic disorders (2 sources) Hypomagnesemia; Translations: [Disorders of magnesium metabolism] 09-18-2024 Chronic Other nutritional; endocrine; and metabolic disorders [...] Onset: 4 04-17-2024 Episodic Residual codes; unclassified (3 sources) Other specified health status; Translations: [Other specified health status] Onset: 4 Episodic Secondary malignancies (1 source) Secondary malignant neoplasm of bone; Translations: [SECONDARY MALIGNANT NEOPLASM BONE] Onset: 2 Chronic Syncope (1 source) Syncope and collapse Episodic Transient cerebral ischemia (2 sources) Transient cerebral ischemia; Translations: [Unspecified transient cerebral ischemia] Onset: 8 03-05-2024 Chronic Unclassified (2 sources) Drug therapy finding 12-17-2019 Unclassified (1 source) ACIDOSIS UNSPECIFIED; Translations: [ACIDOSIS UNSPECIFIED] Onset: 3 Unclassified (2 sources) CONTACT W/AND (SUSP) EXPOS COVID-19; Translations: [CONTACT W/AND (SUSP) EXPOS COVID-19] Onset: 2 Unclassified (11 sources) 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); Translations: [Post COVID-19 condition, unspecified] Unclassified (4 sources) Other persistent atrial fibrillation; Translations: [Other persistent atrial fibrillation (Multi)] Onset: 3 Viral infection (15 sources) Viral [...] Translations: [ENCOUNTER FOR IMMUNIZATION] Onset: 05-26-2022 Episodic Other and unspecified benign neoplasm (1 source) Benign neoplasm of skin of trunk, excluding scrotum; Translations: [Benign neoplasm of skin of trunk, except scrotum] Onset: 06-22-2018 Episodic Other connective tissue disease (1 source) Myofascial pain; Translations: [Myalgia, other site] Onset: 03-05-2024 03-05-2024 Episodic Other ear and sense organ disorders (1 source) Disorder of ear; Translations: [Unspecified disorder of ear] Onset: 11-22-2016 Episodic Residual codes; unclassified (1 source) Family history of diabetes mellitus; Translations: [Family history of diabetes mellitus] Onset: 08-06-2014 Episodic Spondylosis; intervertebral disc disorders; other back problems (1 source) Lumbosacral radiculopathy; Translations: [Radiculopathy, lumbosacral region] Onset: 03-05-2024 03-05-2024 Episodic Unclassified (8 sources) Never smoked tobacco; Translations: [Never a smoker] Unclassified (1 source) CONTACT W/AND (SUSP) EXPOS COVID-19; Translations: [CONTACT W/AND (SUSP) EXPOS COVID-19] Onset: 05-21-2022 Unclassified (1 source) Lumbar pain M54.50 Unclassified (4 sources) Onset: 10-04-2023 Resolved: 04-17-2024 10-04-2023 Urinary tract infections (13 sources) Urinary tract infectious disease; Translations: [Urinary tract infection, site not specified] Onset: 04-12-2024 04-12-2024 Episodic Results Test Name Value Interpretation Reference Range Facility Basic Metabolic Panelon 11-0 Creatinine Clr Calc Pharmacy 19.25 Normal [facility] Comment on above: Result Comment: PERF ORMED BY: [place] [address] PATHOLOGIST ACCOUNTING INSTRUCTOR LUIS DEE M.D. Performed By: #### A DDONUAPLUS #### [facility] [address] [place] [address] GFR/1.73 sq M.predicted MDRD (S/P/Bld) [Vol rate/Area] 18.292 mL/min/{1.73_m2} Normal [facility] Comment on above: Performed By: #### A DDONUAPLUS #### [address] Calcium [Mass/volume] in Ser um or PlasmaOrdered By: Trent Patterson on 09-19-2024 Calcium [Mass/Vol] 7.6 mg/dL Low 8.6-10.3 [facility] Comment on above: Performed By: #### A DDONUAPLUS #### [facility] [address] [place] [address] Capillary blood glucose leonor urement by glucometer (mass/volume)Ordered By: Trent Patterson on 09-19-2024 Glucose [Mass/Vol] 137 mg/dL Normal [facility] Comment on above: Random Glucose Refer ence Range is dependent on time and content of last meal. Glucose of more than 200 mg/dL in a nonstressed, ambulatory subject supports the diagnosis of Diabetes Mellitus. Result Comment: [place] om Glucose Reference Range is dependent on time and content of last meal. Glucose of more than 200 mg/dL in a nonstressed, ambulatory subject supports the diagnosis of Diabetes Mellitus. PERFORMED BY: [place] [address] PATHOLOGIST ACCOUNTING INSTRUCTOR LUIS DEE M.D. Performed By: #### M G, CBC, BMP #### [facility] [address] [place] [address] Carbon dioxide, total [Moles /volume] in Serum or PlasmaOrdered By: Trent Patterson on 09-19-2024 CO2 [Moles/Vol] 20.5 mmol/L Low 21.0-31.0 [facility] Comment on above: Performed By: #### A DDONUAPLUS #### [facility] [address] [place] [address] [place] Chloride [Moles/volume] in S amanda or PlasmaOrdered By: Trent Patterson on 09-19-2024 Chloride [Moles/Vol] 115 mmol/L High 98-107 [facility] Comment on above: Performed By: #### A DDONUAPLUS #### [place] [address] [place] Creatinine [Mass/volume] in Serum or PlasmaOrdered By: Trent Patterson on 09-19-2024 Creatinine [Mass/Vol] 2.55 mg/dL High 0.60-1.20 [facility] Comment on above: Performed By: #### A DDONUAPLUS #### [facility] [address] [id number] [facility] echo transthoracicon [facility] echo transthoracic [facility] Main [place] [address] [place] [address] Echocardiogram Signed Patient: Hailee Trivedi MR#: [id number] 306 : 1940 Acct:[id number] Age/Sex: 84 / F ADM Date: 09/18/24 Loc: Room: [address] [place] [address] Type: ADM INOo Attending Dr: Trent Patterson MD Ordering Provider: Trent Patterson MD Date of Service: 09/18/2404/06/1148 [facility] transthoracic: elevated BNP Copies to: MD Camilla Del Toro MD, [facility] BSA: 2.0 m2 BP: 119/73 mmHg HR: 78 Reason For Study: elevated BNP History: DM, Afib, CKD, HTN, CVA, Multiple Myeloma, COVID, HLD Interpretation Summary The left ventricular size, thickness and function are normal Ejection Fraction = 60-65%. There is mild mitral regurgitation. The patient was in atrial fibrillation through out the study. Compared to prior echo report on 08/10/2018, changes are noted. Aortic regurgitation has dropped from moderate to trace Procedure/Quality: A two-dimensional transthoracic echocardiogram with color flow and Doppler was performed. The study was technically good in quality. Compared to prior echo report on 08/10/2018, changes are noted. Aortic regurgitation has dropped from moderate to trace. Left Ventricle: The left ventricular size, thickness and function are normal. Ejection Fraction = 60-65%. Indeterminate diastolic function. Left Atrium: The left atrium appears mildly dilated. The atrial septum appears normal. Right Atrium: The right atrium appears normal in size. Right Ventricle: The right ventricular size, thickness and function are normal. Aortic Valve: The aortic valve is trileaflet. The aortic valve is mildly calcified. Trace aortic regurgitation. Mitral Valve: The mitral valve is moderately sclerotic. There is mild mitral regurgitation. Tricuspid Valve: The tricuspid valve is normal in structure. There is trace tricuspid regurgitation. Pulmonic Valve: The pulmonic valve is not well seen, but is grossly normal. Trace pulmonic valvular regurgitation. Arteries: The aortic root is normal size. Pericardium/Pleura: No pericardial effusion seen. There is no pleural effusion. IVC/Hepatic Veins: The IVC is normal in size with an inspiratory collapse of greater then 50%, suggesting normal right atrial pressure. Miscellaneous: No thrombus, vegetation or mass is seen. The patient was in atrial fibrillation through out the study. Measurements with Normals IVSd: 1.3 cm (0.7-1.1 cm)LVIDd: 4.0 cm (3.7-5.4 cm) LVPWd: 1.0 cm (0.7-1.1 cm)LVIDs: 2.5 cm (2.3-3.6 cm) LA dimension: 3.7 cm (2.3-4.0 cm)Ao root diam: 3.4 cm(2.0-3.6 cm) asc Aorta Diam: 2.7 cm(2.1-3.4cm) Doppler with Normals RVSP(TR): 32.8 mmHg (18-35mmHg) LV V1 max: 95.0 cm/sec (0.7-1.7m/s)MV E max nisha: 130.0 cm/sec(0.8-1.3m/s) MV A max nisha: 53.6 cm/sec(0.0-0.0m/s) MV E/A: 2.4 (<1.5) MMode/2D Measurements Calculations RVDd: 3.2 cm FS: 38.3 % Ao root area: LVOT diam: 2.0 cm TAPSE: 2.3 cm EDV(Teich): 72.1 ml 9.1 cm2 LVOT area: 3.1 cm2 ESV(Teich): 22.3 ml EF(Teich): 69.0 % __ LVLd ap4: 5.0 cm SV(MOD-sp4): 14.1 ml LAV(MOD-sp4): LA A2 area: 20.4 cm2 EDV(MOD-sp4): 34.5 ml 23.1 ml LAV(MOD-sp2): LA A4 area: 13.4 cm2 LVLs ap4: 4.7 cm 62.7 ml LA length (vol): ESV(MOD-sp4): 4.1 cm 9.0 ml LA vol: 56.7 ml EF(MOD-sp4): LA vol index: 61.2 % 28.4 ml/m2 __ RA Volume: RA Volume Index: 16.0 ml 8.0 ml/m2 Doppler Measurements Calculations MV dec time: MV V2 max: E/E' lat: 10.9 MV P1/2t max nisha: 0.17 sec 169.5 cm/sec E/E' med: 15.9 176.0 cm/sec MV max P.0 mmHg MV P1/2t: 71.5 msec MV V2 mean: 95.8 cm/sec MVA(P1/2t): 3.1 cm2 MV mean P.5 mmHg MV dec slope: MV V2 VTI: 36.7 cm 720.7 cm/sec2 MVA(VTI): 1.7 cm2 __ Ao V2 max: AI max nisha: LV V1 max PG: MR max nihsa: 178.0 cm/sec 348.0 cm/sec 3.6 mmHg 458.3 cm/sec Ao max PG: AI max P.4 mmHg LV V1 mean PG: MR max P.1 mmHg 12.7 mmHg AI dec slope: 2.0 mmHg Ao mean P.0 cm/sec2 LV V1 mean: 8.0 mmHg AI P1/2t: 563.1 msec 61.9 cm/sec Ao V2 mean: LV V1 VTI: 132.0 cm/sec 20.1 cm Ao V2 VTI: 36.2 cm VIOLA(I,D): 1.7 cm2 VIOLA(V,D): 1.7 cm2 __ TV max PG: TR max nisha: 30.0 mmHg 273.0 cm/sec TR max P.8 mmHg RAP systole: 3.0 mmHg ___ Transcribed By: SCV Performed At: 09/19/24 1128 Signed By: Camilla Estrada MD, [facility] 09/19/24 1618 Normal [facility] Glucose Poct Glucometerson 1 11-19-2023 Glucose [Mass/Vol] 177 mg/dL Normal [facility] Comment on above: Result Comment: [place] om Glucose Reference Range is dependent on time and content of last meal. Glucose of more than 200 mg/dL in a nonstressed, ambulatory subject supports the diagnosis of Diabetes Mellitus. PERFORMED BY: [place] [phone] PATHOLOGIST ACCOUNTING INSTRUCTOR LUIS DEE M.D. Performed By: #### A DDONUAPLUS #### [facility] [address] [place] [address] Glucose [Mass/Vol] 108 mg/dL Normal [facility] Comment on above: Result Comment: [place] om Glucose Reference Range is dependent on time and content of last meal. Glucose of more than 200 mg/dL in a nonstressed, ambulatory subject supports the diagnosis of Diabetes Mellitus. PERFORMED BY: [place] [phone] PATHOLOGIST ACCOUNTING INSTRUCTOR LUIS DEE M.D. Performed By: #### M G, CBC, BMP #### [facility] [address] [place] [address] [place] Glucose [Mass/volume] in Ser um or PlasmaOrdered By: Trent Patterson on 09-19-2024 Glucose [Mass/Vol] 103 mg/dL High 70-100 [facility] Comment on above: ADA recommended refe rence rangeRandom Glucose Reference Range is dependent on time and content of last meal. Glucose of more than 200 mg/dL in a nonstressed, ambulatory subject supports the diagnosis of Diabetes Mellitus. Result Comment: [place] Glucose Reference Range is dependent on time and content of last meal. Glucose of more than 200 mg/dL in a nonstressed, ambulatory subject supports the diagnosis of Diabetes Mellitus. ADA recommended reference range Performed By: #### A DDONUAPLUS #### [address] No Panel InformationOrdered By: Trent Patterson on 09-19-2024 Estimated GFR (CKD-EPI) 18.292 mL/Min [facility] Creatinine Clearance (Chem 19.25 [facility] Potassium [Moles/volume] in Serum or PlasmaOrdered By: Trent Patterson on 09-19-2024 Potassium [Moles/Vol] 3.6 mmol/L Normal 3.5-5.1 [facility] Comment on above: Performed By: #### A DDONUAPLUS #### [address] Serum or plasma anion gap de terminationOrdered By: Trent Patterson on 09-19-2024 Anion gap [Moles/Vol] 9.1 mmol/L Normal 6.0-15.0 [facility] Comment on above: Performed By: #### A DDONUAPLUS #### [address] Sodium [Moles/volume] in Ser um or PlasmaOrdered By: Trent Patterson on 09-19-2024 Sodium [Moles/Vol] 141 mmol/L Normal 136-145 [facility] Comment on above: Performed By: #### A DDONUAPLUS #### [address] Urea nitrogen [Mass/volume] in Serum or PlasmaOrdered By: Trent Patterson on 09-19-2024 Urea nitrogen [Mass/Vol] 37 mg/dL High 7-25 [facility] Comment on above: Performed By: #### A DDONUAPLUS #### [address] Automated basophil %Ordered By: Roseline Overton on 09-18-2024 Basophils/100 WBC (Bld) 0.8 % Normal . [facility] Comment on above: Performed By: #### M G, CBC, BMP #### [address] Automated basophil countOrde red By: Roseline Overton on 09-18-2024 Basophils (Bld) [#/Vol] 0.1 10*3/uL Normal 0.0-0.2 [facility] Comment on above: Result Comment: PERF ORMED BY: [place] [address] PATHOLOGIST ACCOUNTING INSTRUCTOR LUIS DEE M.D. Performed By: #### M G, CBC, BMP #### [address] Automated blood monocyte cou ntOrdered By: Roseline Overton on 09-18-2024 Monocytes (Bld) [#/Vol] 0.9 10*3/uL High 0.0-0.8 [facility] Comment on above: Performed By: #### M G, CBC, BMP #### [address] Automated eosinophil %Ordere d By: Roseline Overton on 09-18-2024 Eosinophils/100 WBC (Bld) 2.3 % Normal . [facility] Comment on above: Performed By: #### M G, CBC, BMP #### [address] Automated eosinophil countOr dered By: Roseline Overton on 09-18-2024 Eosinophils (Bld) [#/Vol] 0.2 10*3/uL Normal 0.0-0.45 [facility] Comment on above: Performed By: #### M G, CBC, BMP #### [address] Automated monocyte %Ordered By: Roseline Overton on 09-18-2024 Monocytes/100 WBC (Bld) 8.7 % Normal . [facility] Comment on above: Performed By: #### M G, CBC, BMP #### [address] Automated neutrophil %Ordere d By: Roseline Overton on 09-18-2024 Neutrophils/100 WBC (Bld) 81.6 % Normal . [facility] Comment on above: Performed By: #### M G, CBC, BMP #### [facility] [address] Basic Metabolic Panelon 11-0 -2023 Anion gap [Moles/Vol] 11.5 mmol/L Normal 6.0-15.0 [facility] Comment on above: Performed By: #### M G, CBC, BMP #### [facility] [address] [place] [address] [place] Calcium [Mass/Vol] 7.5 mg/dL Low 8.6-10.3 [facility] Comment on above: Performed By: #### M G, CBC, BMP #### [facility] [address] [place] [address] [place] Chloride [Moles/Vol] 112 mmol/L High 98-107 [facility] Comment on above: Performed By: #### M G, CBC, BMP #### [facility] [address] CO2 [Moles/Vol] 17.4 mmol/L Low 21.0-31.0 [facility] Comment on above: Performed By: #### M G, CBC, BMP #### [facility] [address] [place] [address] [place] Creatinine [Mass/Vol] 2.58 mg/dL High 0.60-1.20 [facility] Comment on above: Performed By: #### M G, CBC, BMP #### [facility] [address] [place] [address] [place] Creatinine Clr Calc Pharmacy 18.85 Normal [facility] Comment on above: Performed By: #### M G, CBC, BMP #### [facility] [address] [place] [address] [place] GFR/1.73 sq M.predicted MDRD (S/P/Bld) [Vol rate/Area] 18.037 mL/min/{1.73_m2} Normal [facility] Comment on above: Performed By: #### M G, CBC, BMP #### [facility] [address] [place] [address] [place] Glucose [Mass/Vol] 112 mg/dL High 70-100 [facility] Comment on above: Result Comment: [place] Glucose Reference Range is dependent on time and content of last meal. Glucose of more than 200 mg/dL in a nonstressed, ambulatory subject supports the diagnosis of Diabetes Mellitus. ADA recommended reference range Performed By: #### M G, CBC, BMP #### [facility] [address] Potassium [Moles/Vol] 3.9 mmol/L Normal 3.5-5.1 [facility] Comment on above: Performed By: #### M G, CBC, BMP #### [facility] [address] [place] [address] Sodium [Moles/Vol] 137 mmol/L Normal 136-145 [facility] Comment on above: Performed By: #### M G, CBC, BMP #### [facility] [address] [place] [address] Urea nitrogen [Mass/Vol] 40 mg/dL High 7-25 [facility] Comment on above: Performed By: #### M G, CBC, BMP #### [address] Complete Blood Count Auto Di ffon 09-18-2024 Mean Corpuscular HGB Conc 33.8 g/dL Normal 32.0-35.0 [facility] Comment on above: Performed By: #### M G, CBC, BMP #### [place] [address] [place] NRBC% 0.0 /100{WBC} Normal 0-0.5 [facility] Comment on above: Performed By: #### M G, CBC, BMP #### [facility] [address] [place] [address] [place] ECG 12 lead ECGon 09-18-2024 ECG 12 lead ECG [facility] [place] [address] [place] [address] Electrocardiograph Report Signed Patient: Hailee Trivedi MR#: [id number] 306 : 1940 Acct:[id number] Age/Sex: 84 / F ADM Date: 09/18/24 Loc: Room: [address] [place] [address] Type: ADM INOo Attending Dr: Trent Patterson MD Ordering Provider: Trent Patterson MD Date of Service: 09/18/2404/06/1734 ECG/ECG 12 lead ECG: Chest Pressure/Palpitations Copies to: Test Reason : Blood Pressure : */* mmHG Vent. Rate : 90 BPM Atrial Rate : * BPM P-R Int : * ms QRS Dur : 94 ms QT Int : 376 ms P-R-T Axes : * 39 133 degrees QTcB Int : 459 ms Atrial fibrillation Nonspecific ST and T wave abnormality Abnormal ECG When compared with ECG of 17-Sep-2024 23:15, (Unconfirmed) No significant change was found Confirmed by NATAL[facility]QUEZ [facility] ([id number] on 09/19/2024 2:53:36 PM Referred By: Electronically Signed By: CAMILLA ESTRADA MD FAC Transcribed By: MUS Signed By Camilla Estrada MD, FACC 09/19/24 1453 Normal [facility] Erythrocyte distribution wid th [Ratio] by Automated countOrdered By: Roseline Overton on 09-18-2024 Erythrocyte distribution width (RBC) [Ratio] 14.1 % Normal 11.9-15.3 [facility] Comment on above: Performed By: #### M G, CBC, BMP #### [facility] [address] [place] [address] Erythrocytes [#/volume] in B lood by Automated countOrdered By: Roseline Overton on 09-18-2024 RBC (Bld) [#/Vol] 3.72 10*6/uL Normal 3.60-5.00 [facility] Comment on above: Performed By: #### M G, CBC, BMP #### [facility] [address] [place] [address] Glucose Poct Glucometerson 1 11-18-2023 Glucose [Mass/Vol] 177 mg/dL Normal [facility] Comment on above: Result Comment: [place] Glucose Reference Range is dependent on time and content of last meal. Glucose of more than 200 mg/dL in a nonstressed, ambulatory subject supports the diagnosis of Diabetes Mellitus. PERFORMED BY: [place] [address] PATHOLOGIST ACCOUNTING INSTRUCTOR LUIS DEE M.D. Performed By: #### M G, CBC, BMP #### [address] Commemt1 Glu2: Cleaned Meter Normal [facility] Comment on above: Result Comment: PERF ORMED BY: [place] [address] PATHOLOGIST ACCOUNTING INSTRUCTOR LUIS DEE M.D. Performed By: #### A DDONUAPLUS #### [place] [address] [place] Glucose [Mass/Vol] 158 mg/dL Normal [facility] Comment on above: Result Comment: [place] om Glucose Reference Range is dependent on time and content of last meal. Glucose of more than 200 mg/dL in a nonstressed, ambulatory subject supports the diagnosis of Diabetes Mellitus. Performed By: #### A DDONUAPLUS #### [address] Commemt1 Glu2: Cleaned Meter Normal [facility] Comment on above: Result Comment: PERF ORMED BY: [place] [address] PATHOLOGIST ACCOUNTING INSTRUCTOR LUIS DEE M.D. Performed By: #### M G, CBC, BMP #### [place] [address] [place] Glucose [Mass/Vol] 145 mg/dL Normal [facility] Comment on above: Result Comment: [place] om Glucose Reference Range is dependent on time and content of last meal. Glucose of more than 200 mg/dL in a nonstressed, ambulatory subject supports the diagnosis of Diabetes Mellitus. Performed By: #### M G, CBC, BMP #### [address] Commemt1 Glu2: Cleaned Meter Normal [facility] Comment on above: Result Comment: PERF ORMED BY: [place] [address] PATHOLOGIST ACCOUNTING INSTRUCTOR LUIS DEE M.D. Performed By: #### M G, CBC, BMP #### [address] Glucose [Mass/Vol] 177 mg/dL Normal [facility] Comment on above: Result Comment: [place] om Glucose Reference Range is dependent on time and content of last meal. Glucose of more than 200 mg/dL in a nonstressed, ambulatory subject supports the diagnosis of Diabetes Mellitus. Performed By: #### M G, CBC, BMP #### [address] Glucose [Mass/Vol] 111 mg/dL Normal [facility] Comment on above: Result Comment: [place] om Glucose Reference Range is dependent on time and content of last meal. Glucose of more than 200 mg/dL in a nonstressed, ambulatory subject supports the diagnosis of Diabetes Mellitus. PERFORMED BY: [place] [address] PATHOLOGIST ACCOUNTING INSTRUCTOR LUIS DEE M.D. Performed By: #### M G, CBC, BMP #### [address] Hematocrit [Volume Fraction] of Blood by Automated countOrdered By: Roseline Overton on 09-18-2024 Hematocrit (Bld) [Volume fraction] 35.5 % Normal 34.0-46.4 [facility] Comment on above: Performed By: #### M G, CBC, BMP #### [address] Hemoglobin [Mass/volume] in BloodOrdered By: Roseline Overton on 09-18-2024 Hemoglobin (Bld) [Mass/Vol] 12.0 g/dL Normal 11.8-15.4 [facility] Comment on above: Performed By: #### M G, CBC, BMP #### [address] Leukocytes [#/volume] correc dominick for nucleated erythrocytes in Blood by Automated counOrdered By: Roseline Overton on 09-18-2024 WBC corrected for nucl RBC Auto (Bld) [#/Vol] 9.8 10*3/uL 3.8-11.6 [facility] Leukocytes [#/volume] in Blo od by Automated countOrdered By: Roseline Overton on 09-18-2024 WBC (Bld) [#/Vol] 9.8 10*3/uL Normal 3.8-11.6 [facility] Comment on above: Performed By: #### M G, CBC, BMP #### [address] Lymphocytes [#/volume] in Bl ood by Automated countOrdered By: Roseline Overton on 09-18-2024 Lymphocytes (Bld) [#/Vol] 0.7 10*3/uL Low 1.00-4.8 [facility] Comment on above: Performed By: #### M G, CBC, BMP #### [address] Lymphocytes/100 leukocytes i n Blood by Automated countOrdered By: Roseline Overton on 09-18-2024 Lymphocytes/100 WBC (Bld) 6.6 % Normal . [facility] Comment on above: Performed By: #### M G, CBC, BMP #### [address] MCH [Entitic mass] by Automa dominick countOrdered By: Roseline Overton on 09-18-2024 MCH (RBC) [Entitic mass] 32.3 pg Normal 24.7-34.3 [facility] Comment on above: Performed By: #### M G, CBC, BMP #### [address] MCHC Auto (RBC) [Mass/Vol]Or dered By: Roseline Ovreton on 09-18-2024 MCHC (RBC) [Mass/Vol] 33.8 g/dL 32.0-35.0 [facility] MCV [Entitic volume] by Auto mated countOrdered By: Roseline Overton on 09-18-2024 MCV (RBC) [Entitic vol] 95.4 fL Normal 80-100 [facility] Comment on above: Performed By: #### M G, CBC, BMP #### [facility] [address] [place] [address] Magnesium [Mass/volume] in S amanda or PlasmaOrdered By: Roseline Overton on 09-18-2024 Magnesium [Mass/Vol] 1.7 mg/dL Low 1.9-2.7 [facility] Comment on above: Result Comment: PERF ORMED BY: [place] [address] PATHOLOGIST ACCOUNTING INSTRUCTOR LUIS DEE M.D. Performed By: #### M G, CBC, BMP #### [facility] [address] [place] [address] Neutrophils [#/volume] in Bl ood by Automated countOrdered By: Roseline Overton on 09-18-2024 Neutrophils (Bld) [#/Vol] 8.0 10*3/uL High 1.8-7.7 [facility] Comment on above: Performed By: #### M Dalia, CBC, BMP #### [facility] [address] [place] [address] No Panel InformationOrdered By: Trent Patterson on 09-18-2024 Bedside Glucose Comment Glu2: cleaned meter [facility] Nucleated erythrocytes [Pres ence] in Blood by Automated countOrdered By: Roseline Overton on 09-18-2024 Nucleated RBC Auto Ql (Bld) 0.0 /100{WBC} 0-0.5 [facility] Platelet mean volume [Entiti c volume] in Blood by Automated countOrdered By: Roseline Overton on 09-18-2024 Platelet mean volume (Bld) [Entitic vol] 10.2 fL Normal 6.3-10.7 [facility] Comment on above: Performed By: #### M G, CBC, BMP #### [facility] [address] [place] [address] Platelets [#/volume] in Bloo d by Automated countOrdered By: Roseline Overton on 09-18-2024 Platelets (Bld) [#/Vol] 137 10*3/uL Low 150-450 [facility] Comment on above: Performed By: #### M G, CBC, BMP #### [address] Troponin I High Sensitivityo n 09-18-2024 Troponin I High Sensitivity 21.2 pg/mL High 0.0-15.0 [facility] Comment on above: Result Comment: PERF ORMED BY: [place] [address] PATHOLOGIST ACCOUNTING INSTRUCTOR LUIS DEE M.D. Performed By: #### A DDONUAPLUS #### [address] Troponin I High Sensitivity 9.1 pg/mL Normal 0.0-15.0 [facility] Comment on above: Result Comment: PERF ORMED BY: [place] [address] PATHOLOGIST ACCOUNTING INSTRUCTOR LUIS DEE M.D. Performed By: #### M G, CBC, BMP #### [address] Troponin I.cardiac [Mass/vol ume] in Serum or Plasma by Detection limit <= 0.01 ng/Ordered By: Roseline Overton on 09-18-2024 Troponin I.cardiac DL <= 0.01 ng/mL [Mass/Vol] 21.2 pg/mL High 0.0-15.0 [facility] Activated partial thrombopla stin time (aPTT) in platelet poor plasma by coagulation aOrdered By: Jesse Valdez on 09-17-2024 aPTT Coag (PPP) [Time] 30.4 s 25.1-36.5 [facility] Comment on above: A hematocrit value g reater than 55% may lead to inaccurate results in coagulation testing. Patients having hematocrit values >55% require a special collection tube for coagulation studies. Please contact the laboratory at [phone] for redraw instructions. Alanine aminotransferase [En zymatic activity/volume] in Serum or PlasmaOrdered By: Jesse Valdez on 09-17-2024 ALT [Catalytic activity/Vol] 15 U/L Normal 7-52 [facility] Comment on above: Performed By: #### M G, CBC, BMP #### [address] Albumin [Mass/volume] in Ser um or Plasma by Bromocresol green (BCG) dye binding methoOrdered By: Jesse Valdez on 09-17-2024 Albumin BCG dye [Mass/Vol] 2.7 g/dL Low 3.5-5.7 [facility] Alkaline phosphatase [Enzyma tic activity/volume] in Serum or PlasmaOrdered By: Jesse Valdez on 09-17-2024 ALP [Catalytic activity/Vol] 64 U/L Normal 34-104 [facility] Comment on above: Performed By: #### M G, CBC, BMP #### [address] Aspartate aminotransferase [ Enzymatic activity/volume] in Serum or PlasmaOrdered By: Jesse Valdez on 09-17-2024 AST [Catalytic activity/Vol] 14 U/L Normal 13-39 [facility] Comment on above: Performed By: #### M G, CBC, BMP #### [address] Automated basophil %Ordered By: Jesse Valdez on 09-17-2024 Basophils/100 WBC (Bld) 0.3 % Normal . [facility] Comment on above: Performed By: #### H S TROP, PTT, CK, BNP, PT, MG, TSH3, CMP, SCAN CBC #### [address] Automated basophil countOrde red By: Jesse Valdez on 09-17-2024 Basophils (Bld) [#/Vol] 0.0 10*3/uL Normal 0.0-0.2 [facility] Comment on above: Performed By: #### H S TROP, PTT, CK, BNP, PT, MG, TSH3, CMP, SCAN CBC #### [address] Automated blood monocyte cou ntOrdered By: Jesse Valdez on 09-17-2024 Monocytes (Bld) [#/Vol] 0.6 10*3/uL Normal 0.0-0.8 [facility] Comment on above: Performed By: #### H S TROP, PTT, CK, BNP, PT, MG, TSH3, CMP, SCAN CBC #### [address] Automated eosinophil %Ordere d By: Jesse Valdez on 09-17-2024 Eosinophils/100 WBC (Bld) 2.1 % Normal . [facility] Comment on above: Performed By: #### H S TROP, PTT, CK, BNP, PT, MG, TSH3, CMP, SCAN CBC #### [address] Automated eosinophil countOr dered By: Jesse Valdez on 09-17-2024 Eosinophils (Bld) [#/Vol] 0.3 10*3/uL Normal 0.0-0.45 [facility] Comment on above: Performed By: #### H S TROP, PTT, CK, BNP, PT, MG, TSH3, CMP, SCAN CBC #### [address] Automated monocyte %Ordered By: Jesse Valdez on 09-17-2024 Monocytes/100 WBC (Bld) 4.9 % Normal . [facility] Comment on above: Performed By: #### H S TROP, PTT, CK, BNP, PT, MG, TSH3, CMP, SCAN CBC #### [address] Automated neutrophil %Ordere d By: Jesse Valdez on 09-17-2024 Neutrophils/100 WBC (Bld) 87.9 % Normal . [facility] Comment on above: Performed By: #### H S TROP, PTT, CK, BNP, PT, MG, TSH3, CMP, SCAN CBC #### [address] BNP ser/plasOrdered By: Lul Valdez on 09-17-2024 Natriuretic peptide B (Bld) [Mass/Vol] 660.0 pg/mL High 5-100 [facility] Comment on above: Result Comment: PERF ORMED BY: [place] [address] PATHOLOGIST ACCOUNTING INSTRUCTOR LUIS DEE M.D. Performed By: #### M G, CBC, BMP #### [address] Bacteria [Presence] in Urine by AutomatedOrdered By: Jesse Valdez on 09-17-2024 Bacteria Auto Ql (U) None seen [HPF] None Seen [facility] Bilirubin Test strip Ql (U)O rdered By: Jesse Valdez on 09-17-2024 Bilirubin Ql (U) Negative Negative [facility] Bilirubin.total [Mass/volume ] in Serum or PlasmaOrdered By: Jesse Valdez on 09-17-2024 Bilirubin [Mass/Vol] 0.4 mg/dL Normal 0.3-1.0 [facility] Comment on above: Performed By: #### M G, CBC, BMP #### [address] head/brain wo conon 09-17 CT head/brain wo con [facility] [place] [address] CT Scan Report Signed Patient: Hailee Trivedi MR#: [id number] 306 : 1940 Acct:[id number] Age/Sex: 84 / F ADM Date: 09/17/24 Loc: ER Room: Type: [facility] ER Attending Dr: Copies to: Jesse Valdez DO Ordering Provider: Jesse Valdez DO Date of Service: 09/17/24 CT/CT head/brain wo con: weakness CT head/brain wo con 09/17/2024 8:59 PM SIGNS AND SYMPTOMS: Increased weakness since Tuesday TECHNIQUE:Multi-detector CT axial slices of the brain were obtained without IV contrast. CT was performed with one or more of the following dose reduction techniques: Automated exposure control, adjustment of the mA and/or kV according to patient size, or use of iterative reconstruction technique. COMPARISON: 11/15/2019. FINDINGS: There is no shift of the midline structures, acute intracranial bleeding, mass effects, or evidence of acute ischemia. The ventricular system is normal in size. There is a remote lacunar infarct in the left cerebral peduncle. Gliosis and encephalomalacia is noted in the right cerebellar hemisphere consistent with remote infarcts. Remote lacunar infarct is noted in the right frontal periventricular white matter and caudate nucleus. Atherosclerotic changes are noted in the V4 segments of the vertebral arteries and intracranial segments of the internal carotid arteries. Mucosal thickening is noted in the ethmoid air cells and left sphenoid sinus. The visualized intraorbital contents and the infratemporal soft tissues show no acute abnormality. The osseous structures in the skull base and the calvarium show no abnormality. CT/CT head/brain wo con IMPRESSION: No acute intrarenal pathology. Remote lacunar infarcts are redemonstrated. 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 Chronic age-related degenerative changes are noted as above. Impression dictated by: Armando Huynh M.D.09/17/2024 10:40 PM Dictation Location: [place] [address] Transcribed By: AISHA 09/17/242239 Dictated By: Armando Huynh II, MD 09/17/242232 Signed By: 09/17/242239 Normal [facility] Calcium [Mass/volume] in Ser um or PlasmaOrdered By: Jesse Valdez on 09-17-2024 Calcium [Mass/Vol] 7.7 mg/dL Low 8.6-10.3 [facility] Comment on above: Performed By: #### M G, CBC, BMP #### [address] Capillary blood glucose leonor urement by glucometer (mass/volume)Ordered By: Jesse Valdez on 09-17-2024 Glucose [Mass/Vol] 138 mg/dL Normal [facility] Comment on above: Random Glucose Refer ence Range is dependent on time and content of last meal. Glucose of more than 200 mg/dL in a nonstressed, ambulatory subject supports the diagnosis of Diabetes Mellitus. Result Comment: [place] Glucose Reference Range is dependent on time and content of last meal. Glucose of more than 200 mg/dL in a nonstressed, ambulatory subject supports the diagnosis of Diabetes Mellitus. Performed By: #### A DDONUAPLUS #### [place] [id number] [facility] Carbon dioxide, total [Moles /volume] in Serum or PlasmaOrdered By: Jesse Valdez on 09-17-2024 CO2 [Moles/Vol] 17.5 mmol/L Low 21.0-31.0 [facility] Comment on above: Performed By: #### M Dalia CBC, BMP #### [address] Chloride [Moles/volume] in S amanda or PlasmaOrdered By: Jesse Valdez on 09-17-2024 Chloride [Moles/Vol] 112 mmol/L High 98-107 [facility] Comment on above: Performed By: #### M Dalia CBC, BMP #### [address] Color of Urine by AutoOrdere d By: Jesse Valdez on 09-17-2024 Color (U) Yellow Normal Yellow [facility] Comment on above: Order Comment: Name Collection Type:: Clean-Voided Midstream Performed By: #### A DDONUAPLUS #### [address] Comprehensive Metabolic Pane natalia 09-17-2024 Albumin [Mass/Vol] 2.7 g/dL Low 3.5-5.7 [facility] Comment on above: Performed By: #### M Dalia CBC, BMP #### [place] [address] [place] Creatinine Clr Calc Pharmacy 18.35 Normal [facility] Comment on above: Performed By: #### M Dalia CBC, BMP #### [place] [address] [place] GFR/1.73 sq M.predicted MDRD (S/P/Bld) [Vol rate/Area] 17.388 mL/min/{1.73_m2} Normal [facility] Comment on above: Performed By: #### M Dalia CBC, BMP #### [address] Creatine kinase [Enzymatic a ctivity/volume] in Serum or PlasmaOrdered By: Jesse Valdez on 09-17-2024 CK [Catalytic activity/Vol] 25 U/L Low 30-223 [facility] Comment on above: Performed By: #### M G, CBC, BMP #### [facility] [address] [place] [address] Creatinine [Mass/volume] in Serum or PlasmaOrdered By: Jesse Valdez on 09-17-2024 Creatinine [Mass/Vol] 2.66 mg/dL High 0.60-1.20 [facility] Comment on above: Performed By: #### M G, CBC, BMP #### [address] Dipstick and Microscopicon 1 11-17-2023 Bacteria,Urine None Seen Normal None Seen [facility] Comment on above: Order Comment: Name Collection Type:: Clean-Voided Midstream Performed By: #### A DDONUAPLUS #### [address] Bilirubin,Urine Negative Normal Negative [facility] Comment on above: Order Comment: Name Collection Type:: Clean-Voided Midstream Performed By: #### A DDONUAPLUS #### [address] Glucose Ql (U) Normal Normal Normal [facility] Comment on above: Order Comment: Name Collection Type:: Clean-Voided Midstream Performed By: #### A DDONUAPLUS #### [address] Hyaline Casts,Urine None Normal 0-8 [facility] Comment on above: Order Comment: Name Collection Type:: Clean-Voided Midstream Performed By: #### A DDONUAPLUS #### [place] [address] [place] Mucus,Urine Rare Normal [facility] Comment on above: Order Comment: Name Collection Type:: Clean-Voided Midstream Result Comment: PERF ORMED BY: [place] [address] PATHOLOGIST ACCOUNTING INSTRUCTOR LUIS DEE M.D. Performed By: #### A DDONUAPLUS #### [address] [address] [place] Nitrite,Urine Negative Normal Negative [facility] Comment on above: Order Comment: Name Collection Type:: Clean-Voided Midstream Performed By: #### A DDONUAPLUS #### [address] Occult Blood,Urine Negative Normal Negative [facility] Comment on above: Order Comment: Name Collection Type:: Clean-Voided Midstream Result Comment: PERF ORMED BY: [place] [address] PATHOLOGIST ACCOUNTING INSTRUCTOR LUIS DEE M.D. Performed By: #### A DDONUAPLUS #### [address] RBC,Urine 1-2 Normal 0-4 [facility] Comment on above: Order Comment: Name Collection Type:: Clean-Voided Midstream Performed By: #### A DDONUAPLUS #### [address] Specificy [place],Urine 1.023 Normal 1.00 1-1.03 0 [facility] Comment on above: Order Comment: Name Collection Type:: Clean-Voided Midstream Performed By: #### A DDONUAPLUS #### [address] Squamous Epithelial Cell,Urine 1-2 Normal 0-2 [facility] Comment on above: Order Comment: Name Collection Type:: Clean-Voided Midstream Performed By: #### A DDONUAPLUS #### [address] Urobilinogen,Urine Normal Normal Normal [facility] Comment on above: Order Comment: Name Collection Type:: Clean-Voided Midstream Performed By: #### A DDONUAPLUS #### [address] WBC CL[place], Urine Occasional High None Seen [facility] Comment on above: Order Comment: Name Collection Type:: Clean-Voided Midstream Performed By: #### A DDONUAPLUS #### [address] [place] [address] [facility] WBC,Urine 3-4 Normal 0-4 [facility] Comment on above: Order Comment: Name Collection Type:: Clean-Voided Midstream Performed By: #### A DDONUAPLUS #### [facility] [address] [place], [place] [id number] [facility] ECG 12 lead ECGon 09-17-2024 ECG 12 lead ECG [facility] [place] [address] Electrocardiograph Report Signed Patient: Hailee Trivedi MR#: [id number] 306 : 1940 Acct:[id number] Age/Sex: 84 / F ADM Date: 09/18/24 Loc: Room: [address] [place] [address] Type: ADM INOo Attending Dr: Trent Patterson MD Ordering Provider: Jesse Valdez DO Date of Service: 09/17/2403/07/2315 ECG/ECG 12 lead ECG: chest pain Copies to: Test Reason : Blood Pressure : 141/71 mmHG Vent. Rate : 101 BPM Atrial Rate : 153 BPM P-R Int : * ms QRS Dur : 88 ms QT Int : 360 ms P-R-T Axes : * 69 88 degrees QTcB Int : 466 ms Atrial fibrillation with rapid ventricular response Confirmed by Jesse VALDEZ DO ([id number]) on 09/18/2024 11:57:16 PM Referred By: Electronically Signed By: Jesse VALDEZ DO Transcribed By: MUS Signed By Jesse Valdez DO 1 11/18/23 2357 Normal [facility] ECG 12 lead ECG [facility] [place] [id number] Electrocardiograph Report Signed Patient: Hailee Trivedi MR#: [id number] 306 : 1940 Acct:[id number] Age/Sex: 84 / F ADM Date: 09/17/24 Loc: ER Room: Type: [facility] ER Attending Dr: Ordering Provider: Jesse Valdez DO Date of Service: 09/17/2403/07/2058 ECG/ECG 12 lead ECG: Weakness Copies to: Test Reason : Blood Pressure : 109/50 mmHG Vent. Rate : 94 BPM Atrial Rate : 267 BPM P-R Int : * ms QRS Dur : 86 ms QT Int : 366 ms P-R-T Axes : * 38 111 degrees QTcB Int : 457 ms Poor data quality, interpretation may be adversely affected Atrial fibrillation Confirmed by Jesse VALDEZ DO ([id number]) on 09/18/2024 12:49:30 AM Referred By: Electronically Signed By: Jesse VALDEZ DO Transcribed By: MUS Signed By Jesse Valdez DO 1 11/18/23 0049 Normal [facility] Epithelial cells.squamous [# /area] in Urine sediment by Automated countOrdered By: Jesse Valdez on 09-17-2024 Epithelial cells.squamous Auto (Urine sed) [#/Area] 1-2 [HPF] 0-2 [facility] Erythrocyte distribution wid th [Ratio] by Automated countOrdered By: Jesse Valdez on 09-17-2024 Erythrocyte distribution width (RBC) [Ratio] 14.3 % Normal 11.9-15.3 [facility] Comment on above: Performed By: #### H S TROP, PTT, CK, BNP, PT, MG, TSH3, CMP, SCAN CBC #### [facility] [address] [place] [address] Erythrocytes [#/area] in Uri ne sediment by Automated countOrdered By: Jesse Valdez on 09-17-2024 RBC Auto (Urine sed) [#/Area] 1-2 [HPF] 0-4 [facility] Erythrocytes [#/volume] in B lood by Automated countOrdered By: Jesse Valdez on 09-17-2024 RBC (Bld) [#/Vol] 3.77 10*6/uL Normal 3.60-5.00 [facility] Comment on above: Performed By: #### H S TROP, PTT, CK, BNP, PT, MG, TSH3, CMP, SCAN CBC #### [facility] [address] [place] [address] Glucose Poct Glucometerson 1 11-17-2023 Commemt1 Glu2: Cleaned Meter Normal [facility] Comment on above: Result Comment: PERF ORMED BY: [place] [address] PATHOLOGIST ACCOUNTING INSTRUCTOR LIUS DEE M.D. Performed By: #### A DDONUAPLUS #### [address] Glucose [Mass/volume] in Ser um or PlasmaOrdered By: Jesse Valdez on 09-17-2024 Glucose [Mass/Vol] 141 mg/dL High 70-100 [facility] Comment on above: ADA recommended refe rence rangeRandom Glucose Reference Range is dependent on time and content of last meal. Glucose of more than 200 mg/dL in a nonstressed, ambulatory subject supports the diagnosis of Diabetes Mellitus. Result Comment: [place] [facility] Glucose Reference Range is dependent on time and content of last meal. Glucose of more than 200 mg/dL in a nonstressed, ambulatory subject supports the diagnosis of Diabetes Mellitus. ADA recommended reference range Performed By: #### M G, CBC, BMP #### [address] Glucose [Mass/volume] in Uri ne by Test stripOrdered By: Jesse Valdez on 09-17-2024 Glucose Test strip (U) [Mass/Vol] Normal mg/dL Normal [facility] Hematocrit [Volume Fraction] of Blood by Automated countOrdered By: Jesse Valdez on 09-17-2024 Hematocrit (Bld) [Volume fraction] 36.0 % Normal 34.0-46.4 [facility] Comment on above: Performed By: #### H S TROP, PTT, CK, BNP, PT, MG, TSH3, CMP, SCAN CBC #### [facility] [address] [place] [id number] [facility] Hemoglobin Test strip Ql (U) Ordered By: Jesse Valdez on 09-17-2024 Hemoglobin Ql (U) Negative Negative [facility] Hemoglobin [Mass/volume] in BloodOrdered By: Jesse Valdez on 09-17-2024 Hemoglobin (Bld) [Mass/Vol] 12.0 g/dL Normal 11.8-15.4 [facility] Comment on above: Performed By: #### H S TROP, PTT, CK, BNP, PT, MG, TSH3, CMP, SCAN CBC #### [facility] [address] [place] [id number] [place] Hyaline casts [#/area] in Ur ine sediment by Automated countOrdered By: Jesse Valdez on 09-17-2024 Hyaline casts Auto (Urine sed) [#/Area] None [LPF] 0-8 [facility] INR in Platelet poor plasma by Coagulation assayOrdered By: Jesse Valdez on 09-17-2024 INR Coag (PPP) [Relative time] 1.5 {INR} Normal [facility] Comment on above: INR Therapeutic Rang e A) Pre- and Peroperative OAT started two weeks before surgery. NOT HIP SURGERY: 1.5 - 2.5 HIP SURGERY: 2 - 3B) Primary and secondary prevention of venous THROMBOSIS: 2 - 3C) Active venous thrombosis, pulmonary embolismand prevention of recurrent venous thrombosis: 2 - 3D) Prevention of arterial thromboembolismincluding patients with mechanical heart valves: 3 - 4.5 Result Comment: INR Therapeutic Range A) Pre- and Peroperative OAT started two weeks before surgery. NOT HIP SURGERY: 1.5 - 2.5 HIP SURGERY: 2 - 3 B) Primary and secondary prevention of venous THROMBOSIS: 2 - 3 C) Active venous thrombosis, pulmonary embolism and prevention of recurrent venous thrombosis: 2 - 3 D) Prevention of arterial thromboembolism including patients with mechanical heart valves: 3 - 4.5 Performed By: #### M G, CBC, BMP #### [facility] [address] [place] [id number] [place] Ketones [Presence] in Urine by Test stripOrdered By: Jesse Valdez on 09-17-2024 Ketones Ql (U) Negative Normal Negative [facility] Comment on above: Order Comment: Name Collection Type:: Clean-Voided Midstream Performed By: #### A DDONUAPLUS #### [facility] [address] [place] [id number] [place] Lactate [Moles/volume] in Se rum or PlasmaOrdered By: Jesse Valdez on 09-17-2024 Lactate [Moles/Vol] 0.9 mmol/L Normal 0.5-2.2 [facility] Comment on above: Result Comment: PERF ORMED BY: [place] [address] PATHOLOGIST ACCOUNTING INSTRUCTOR LUIS DEE M.D. Performed By: #### A DDONUAPLUS #### [facility] [address] Leukocyte clumps [Presence] in Urine by AutomatedOrdered By: Jesse Valdez on 09-17-2024 Leukocyte clumps Auto Ql (U) Occasional [LPF] High None Seen [facility] Leukocyte esterase [Presence ] in Urine by Test stripOrdered By: Jesse Valdez on 09-17-2024 Leukocyte esterase Test strip Ql (U) Negative Normal Negative [facility] Comment on above: Order Comment: Name Collection Type:: Clean-Voided Midstream Performed By: #### A DDONUAPLUS #### [facility] [address] [place] [address] Leukocytes [#/area] in Urine sediment by Automated countOrdered By: Jesse Valdez on 09-17-2024 WBC Auto (Urine sed) [#/Area] 3-4 [HPF] 0-4 [facility] Leukocytes [#/volume] correc dominick for nucleated erythrocytes in Blood by Automated counOrdered By: Jesse Valdez on 09-17-2024 WBC corrected for nucl RBC Auto (Bld) [#/Vol] 12.0 10*3/uL High 3.8-11.6 [facility] Leukocytes [#/volume] in Blo od by Automated countOrdered By: Jesse Valdez on 09-17-2024 WBC (Bld) [#/Vol] 12.0 10*3/uL High 3.8-11.6 [facility] Comment on above: Performed By: #### H S TROP, PTT, CK, BNP, PT, MG, TSH3, CMP, SCAN CBC #### [facility] [address] [place] [address] [place] Lymphocytes [#/volume] in Bl ood by Automated countOrdered By: Jesse Valdez on 09-17-2024 Lymphocytes (Bld) [#/Vol] 0.6 10*3/uL Low 1.00-4.8 [facility] Comment on above: Performed By: #### H S TROP, PTT, CK, BNP, PT, MG, TSH3, CMP, SCAN CBC #### [facility] [address] Lymphocytes/100 leukocytes i n Blood by Automated countOrdered By: Jesse Valdez on 09-17-2024 Lymphocytes/100 WBC (Bld) 4.8 % Normal . [facility] Comment on above: Performed By: #### H S TROP, PTT, CK, BNP, PT, MG, TSH3, CMP, SCAN CBC #### [address] MCH [Entitic mass] by Automa dominick countOrdered By: Jesse Valdez on 09-17-2024 MCH (RBC) [Entitic mass] 31.8 pg Normal 24.7-34.3 [facility] Comment on above: Performed By: #### H S TROP, PTT, CK, BNP, PT, MG, TSH3, CMP, SCAN CBC #### [address] MCHC Auto (RBC) [Mass/Vol]Or dered By: Jesse Valdez on 09-17-2024 MCHC (RBC) [Mass/Vol] 33.3 g/dL 32.0-35.0 [facility] MCV [Entitic volume] by Auto mated countOrdered By: Jesse Valdez on 09-17-2024 MCV (RBC) [Entitic vol] 95.5 fL Normal 80-100 [facility] Comment on above: Performed By: #### H S TROP, PTT, CK, BNP, PT, MG, TSH3, CMP, SCAN CBC #### [address] Magnesium [Mass/volume] in S amanda or PlasmaOrdered By: Jesse Valdez on 09-17-2024 Magnesium [Mass/Vol] 1.6 mg/dL Low 1.9-2.7 [facility] Comment on above: Performed By: #### M G, CBC, BMP #### [address] Monocyte distribution width [Entitic volume] in Blood by AutomatedOrdered By: Jesse Valdez on 09-17-2024 Monocyte distribution width Auto (Bld) [Entitic vol] 29.77 % High 0.00-20.00 [facility] Comment on above: For adults in ED, MD W > 20.0 may be associated with a higher risk of sepsis during the first 12 hrs of hospital admission Mucus [Presence] in Urine by AutomatedOrdered By: Jesse Valdez on 09-17-2024 Mucus Auto Ql (U) Rare [LPF] [facility] Neutrophils [#/volume] in Bl ood by Automated countOrdered By: Jesse Valdez on 09-17-2024 Neutrophils (Bld) [#/Vol] 10.6 10*3/uL High 1.8-7.7 [facility] Comment on above: Performed By: #### H S TROP, PTT, CK, BNP, PT, MG, TSH3, CMP, SCAN CBC #### [facility] [address] Nitrite Test strip Ql (U)Ord ered By: Jesse Valdez on 09-17-2024 Nitrite Ql (U) Negative Negative [facility] No Panel InformationOrdered By: Jesse Valdez on 09-17-2024 Blood Gas Critical Value See comment [facility] Comment on above: Critical Value rizvi d on: 09/17/2024 at 22:50 Blood Gas Sample Site Venous Fir [facility] FiO2 21 % [facility] Venous Blood Base Excess -8.6 mmol/L Low -3.0-3.0 [facility] Venous Blood Oxygen Saturation 76.2 % High 73.0-76.0 [facility] Venous Blood Partial Pressure CO2 30.5 mm[Hg] Low 38.0-50.0 [facility] Venous Blood pH 7.34 7.32-7.43 [facility] Estimated GFR (CKD-EPI) 17.388 mL/Min [facility]acy Creatinine Clearance (Chem 18.35 [facility] Bedside Glucose Comment Glu2: cleaned meter [facility] Nucleated erythrocytes [Pres ence] in Blood by Automated countOrdered By: Jesse Valdez on 09-17-2024 Nucleated RBC Auto Ql (Bld) 0.0 /100{WBC} 0-0.5 [facility] Partial Thromboplastin Timeo n 09-17-2024 aPTT Coag (Bld) [Time] 30.4 s Normal 25.1-36.5 [facility] Comment on above: Result Comment: A he matocrit value greater than 55% may lead to inaccurate results in coagulation testing. Patients having hematocrit values >55% require a special collection tube for coagulation studies. Please contact the laboratory at [phone] for redraw instructions. PERFORMED BY: [place] [address] PATHOLOGIST ACCOUNTING INSTRUCTOR LUIS DEE M.D. Performed By: #### M G, CBC, BMP #### [facility] [address] [place] [address] Platelet adequacy [Presence] in Blood by Light microscopyOrdered By: Jesse Valdez on 09-17-2024 Platelets LM Ql (Bld) Normal Normal [facility] Platelet mean volume [Entiti c volume] in Blood by Automated countOrdered By: Jesse Valdez on 09-17-2024 Platelet mean volume (Bld) [Entitic vol] 10.3 fL Normal 6.3-10.7 [facility] Comment on above: Performed By: #### H S TROP, PTT, CK, BNP, PT, MG, TSH3, CMP, SCAN CBC #### [facility] [address] [place] [address] Platelet morphology finding [Identifier] in BloodOrdered By: Jesse Valdez on 09-17-2024 Platelet morphology finding Nom (Bld) Normal Normal [facility] Platelets [#/volume] in Bloo d by Automated countOrdered By: Jesse Valdez on 09-17-2024 Platelets (Bld) [#/Vol] 143 10*3/uL Low 150-450 [facility] Comment on above: Performed By: #### H S TROP, PTT, CK, BNP, PT, MG, TSH3, CMP, SCAN CBC #### [place] [address] [place] Potassium [Moles/volume] in Serum or PlasmaOrdered By: Jesse Valdez on 09-17-2024 Potassium [Moles/Vol] 3.9 mmol/L Normal 3.5-5.1 [facility] Comment on above: Performed By: #### M G, CBC, BMP #### [facility] [address] [place] [id number] [place] Protein [Mass/volume] in Ser um or PlasmaOrdered By: Jesse Valdez on 09-17-2024 Protein [Mass/Vol] 5.1 g/dL Low 6.4-8.9 [facility] Comment on above: Performed By: #### M G, CBC, BMP #### [facility] [address] [place] [id number] [place] Protein [Mass/volume] in Uri ne by Test stripOrdered By: Jesse Valdez on 09-17-2024 Protein (U) [Mass/Vol] 50 mg/dL High Negative [facility] Comment on above: Order Comment: Name Collection Type:: Clean-Voided Midstream Performed By: #### A DDONUAPLUS #### [place] [id number] [facility] Prothrombin time (PT)Ordered By: Jesse Valdez on 09-17-2024 PT Coag (PPP) [Time] 17.3 s High 9.0-12.9 [facility] Comment on above: A hematocrit value g reater than 55% may lead to inaccurate results in coagulation testing. Patients having hematocrit values >55% require a special collection tube for coagulation studies. Please contact the laboratory at [phone] for redraw instructions. Result Comment: A he matocrit value greater than 55% may lead to inaccurate results in coagulation testing. Patients having hematocrit values >55% require a special collection tube for coagulation studies. Please contact the laboratory at [phone] for redraw instructions. Performed By: #### M G, CBC, BMP #### [facility] [address] [place] [id number] [facility] RBC morphologyOrdered By: Abiodun Valdez on 09-17-2024 RBC morphology finding Nom (Bld) Normal Normal Normal [facility] Comment on above: Performed By: #### H S TROP, PTT, CK, BNP, PT, MG, TSH3, CMP, SCAN CBC #### [address] Scan and CBCon 09-17-2024 Mean Corpuscular HGB Conc 33.3 g/dL Normal 32.0-35.0 [facility] Comment on above: Performed By: #### H S TROP, PTT, CK, BNP, PT, MG, TSH3, CMP, SCAN CBC #### [address] Monocytes/100 WBC (Bld) 29.77 % High 0.00-20.00 [facility] Comment on above: Result Comment: For adults in ED, MDW > 20.0 may be associated with a higher risk of sepsis during the first 12 hrs of hospital admission Performed By: #### H S TROP, PTT, CK, BNP, PT, MG, TSH3, CMP, SCAN CBC #### [address] NRBC% 0.0 /100{WBC} Normal 0-0.5 [facility] Comment on above: Performed By: #### H S TROP, PTT, CK, BNP, PT, MG, TSH3, CMP, SCAN CBC #### [address] Platelet Estimate Normal Normal Normal [facility] Comment on above: Performed By: #### H S TROP, PTT, CK, BNP, PT, MG, TSH3, CMP, SCAN CBC #### [address] Platelet Morphology Normal Normal Normal [facility] Comment on above: Result Comment: PERF ORMED BY: [place] [address] PATHOLOGIST ACCOUNTING INSTRUCTOR LUIS DEE M.D. Performed By: #### H S TROP, PTT, CK, BNP, PT, MG, TSH3, CMP, SCAN CBC #### [address] Serum globulin measurement b y calculation (mass/volume)Ordered By: Jesse Valdez on 09-17-2024 Globulin (S) [Mass/Vol] 2.4 g/dL Normal [facility] Comment on above: Performed By: #### M G, CBC, BMP #### [address] Serum or plasma albumin/glob ulin mass ratioOrdered By: Jesse Valdez on 09-17-2024 Albumin/Globulin [Mass ratio] 1.1 {ratio} Normal [facility] Comment on above: Performed By: #### M G, CBC, BMP #### [address] Serum or plasma anion gap de terminationOrdered By: Jesse Valdez on 09-17-2024 Anion gap [Moles/Vol] 10.4 mmol/L Normal 6.0-15.0 [facility] Comment on above: Performed By: #### M G, CBC, BMP #### [address] Sodium [Moles/volume] in Ser um or PlasmaOrdered By: Jesse Valdez on 09-17-2024 Sodium [Moles/Vol] 136 mmol/L Normal 136-145 [facility] Comment on above: Performed By: #### M G, CBC, BMP #### [address] Specific gravity Test strip (U) [Rel density]Ordered By: Jesse Valdez on 09-17-2024 Specific gravity (U) [Rel density] 1.023 1.001-1.03 0 [facility] Thyrotropin [Units/volume] i n Serum or PlasmaOrdered By: Jesse Valdez on 09-17-2024 TSH Qn 3.69 m[IU]/L Normal 0.45-5.33 [facility] Comment on above: Result Comment: PERF ORMED BY: [place] [address] PATHOLOGIST ACCOUNTING INSTRUCTOR LUIS DEE M.D. Performed By: #### M G, CBC, BMP #### [address] Troponin I High Sensitivityo n 09-17-2024 Troponin I High Sensitivity 9.3 pg/mL Normal 0.0-15.0 [facility] Comment on above: Result Comment: PERF ORMED BY: [place] [address] PATHOLOGIST ACCOUNTING INSTRUCTOR LUIS DEE M.D. Performed By: #### M G, CBC, BMP #### [facility] [address] [place] [address] Troponin I.cardiac [Mass/vol ume] in Serum or Plasma by Detection limit <= 0.01 ng/Ordered By: Jeses Valdez on 09-17-2024 Troponin I.cardiac DL <= 0.01 ng/mL [Mass/Vol] 9.3 pg/mL 0.0-15.0 [facility] URINE CULTURE, ROUTINEon Bacteria identified Cx Nom (U) Urine Culture, Routine [facility] Bacteria identified Cx Nom (U) Mixed urogenital etienne [facility] Bacteria identified Cx Nom (U) Less than 10,000 colonies/mL [facility] Bacteria identified Cx Nom (U) Performed at: [facility] Bacteria identified Cx Nom (U) [address] [place], [place] [id number] [facility] Bacteria identified Cx Nom (U) Hand Stapler: Elpidio Delgado PhD, Phone: [phone] [facility] Urea nitrogen [Mass/volume] in Serum or PlasmaOrdered By: Jesse Valdez on 09-17-2024 Urea nitrogen [Mass/Vol] 41 mg/dL High 7-25 [facility] Comment on above: Performed By: #### M G, CBC, BMP #### [facility] [address] [place] [address] Urine appearanceOrdered By: Jesse Valdez on 09-17-2024 Appearance (U) Clear Normal Clear [facility] Comment on above: Order Comment: Name Collection Type:: Clean-Voided Midstream Performed By: #### A DDONUAPLUS #### [facility] [address] [place] [address] Urobilinogen Test strip (U) [Mass/Vol]Ordered By: Jesse Valdez on 09-17-2024 Urobilinogen (U) [Mass/Vol] Normal mg/dL Normal [facility] Venous Blood GasOrdered By: Jesse Valdez on 09-17-2024 CO2 [Moles/Vol] 16.9 mmol/L Low 24.0-29.0 [facility] Comment on above: Performed By: #### V BG #### Point of Care testing , HCO3 (Bld) [Moles/Vol] 15.9 mmol/L Low 23.0-29.0 [facility] Comment on above: Performed By: #### V BG #### Point of Care testing , Venous Blood Gason Respiratory Critical Normal [facility] Comment on above: Result Comment: Crit ical Value called on: 09/17/2024 at 22:50 PERFORMED BY: [facility] [address] [place] [address] PATHOLOGIST ACCOUNTING INSTRUCTOR LUIS DEE M.D. Performed By: #### V BG #### Point of Care testing , VBG Base Excess -8.6 mmol/L Low -3.0-3.0 [facility] Comment on above: Performed By: #### V BG #### Point of Care testing , VBG Draw Site Venous Normal [facility] Comment on above: Performed By: #### V BG #### Point of Care testing , VBG Frac Inspired O2 21 % Normal [facility] Comment on above: Performed By: #### V BG #### Point of Care testing , VBG Oxygen Saturation 76.2 % High 73.0-76.0 [facility] Comment on above: Performed By: #### V BG #### Point of Care testing , VBG PCO2 30.5 mm[Hg] Low 38.0-50.0 [facility] Comment on above: Performed By: #### V BG #### Point of Care testing , VBG PH Venous PH 7.34 Normal 7.32-7.43 [facility] Comment on above: Performed By: #### V BG #### Point of Care testing , XR chest 2V*on 09-17-2024 XR chest 2V* [facility] [place] [address] [place], [place] [id number] XRay Report Signed Patient: Hailee Trivedi MR#: [id number] : [id number] Acct:[id number] Age/Sex: 84 / F ADM Date: 09/17/24 Loc: ER Room: Type: [facility] ER Attending Dr: Copies to: Jesse Valdez DO Ordering Provider: Jesse Valdez DO Date of Service: 09/17/24 XR/XR chest 2V*: Weakness XR chest 2V* 09/17/2024 8:59 PM SIGNS AND SYMPTOMS: Increasing weakness PROTOCOL: Frontal and lateral radiograph of the chest COMPARISON: 01/08/2020 FINDINGS: The trachea is midline. There is a right-sided [id number] with the tip at the cavoatrial junction. The heart and mediastinal structures are within normal limits. The lung parenchyma is clear. The bony thorax is intact. Degenerative changes are noted in the shoulders. XR/XR chest 2V* IMPRESSION: No acute cardiopulmonary pathology. Chronic findings are noted as above. Impression dictated by: Armando Huynh M.D.09/17/2024 10:43 PM Dictation Location: [place] [address] Transcribed By: [facility] 09/17/242242 Dictated By: Armando Huynh II, MD 09/17/242239 Signed By: 09/17/242242 Normal [facility] pH of Urine by Test stripOrd ered By: Jesse Valdez on 09-17-2024 pH (U) 5.5 [pH] Normal 5.0-9.0 [facility] Comment on above: Order Comment: Name Collection Type:: Clean-Voided Midstream Performed By: #### A DDONUAPLUS #### [place] [id number] [facility] Basophils Auto (Bld) [#/Vol] on 09-14-2024 Basophils (Bld) [#/Vol] 0.0 10 3/uL 0.0-0.1 [facility] Basophils/100 WBC Auto (Bld) on 09-14-2024 Basophils/100 WBC (Bld) 0.1 % Low 0.2-2.0 [facility] Eosinophils/100 WBC Auto (Bl d)on 09-14-2024 Eosinophils/100 WBC (Bld) 0.5 % Low 0.9-7.0 [facility] Erythrocyte distribution wid th Auto (RBC) [Ratio]on 09-14-2024 Erythrocyte distribution width (RBC) [Ratio] 12.8 % 11.0-15.0 [facility] Estimated glomerular filtrat ion rate (GFR) non- Americanon 09-14-2024 GFR/1.73 sq M.predicted among non-blacks MDRD (S/P/Bld) [Vol rate/Area] 16 mL/min/{1.73_m2} Low >=60 mL/min/1.7 3m 2 [facility] Globulin Calc (S) [Mass/Vol] on 09-14-2024 Globulin (S) [Mass/Vol] 3.3 g/dL [facility] Hematocrit Auto (Bld) [Volum e fraction]on 09-14-2024 Hematocrit (Bld) [Volume fraction] 37.5 % 36.0-48.0 [facility] Hemoglobin [Mass/volume] in Bloodon 09-14-2024 Hemoglobin (Bld) [Mass/Vol] 12.7 g/dL 12.0-16.0 [facility] Laboratory - Chemistry and C hemistry - challengeon 09-14-2024 Bilirubin Ql (U) Negative NEGATIVE [facility] Glucose (U) [Mass/Vol] Negative NEGATIVE [facility] Ketones Ql (U) Negative NEGATIVE [facility] pH (U) 6.0 [pH] 5.0-9.0 [facility] Specific gravity (U) [Rel density] 1.020 1.005-1.02 5 [facility] Urobilinogen Qn (U) 0.2 {Marley'U}/dL 0.2-1.0 [facility] Albumin [Mass/Vol] 2.6 g/dL Low 3.4-5.0 [facility] ALP [Catalytic activity/Vol] 84 U/L 46-116 [facility] ALT [Catalytic activity/Vol] 32 U/L 14-59 [facility] AST [Catalytic activity/Vol] 19 U/L 15-37 [facility] Bilirubin [Mass/Vol] 0.3 mg/dL 0.2-1.0 [facility] Calcium [Mass/Vol] 8.2 mg/dL Low 8.5-10.1 [facility] Chloride [Moles/Vol] 111 mmol/L High 98-107 [facility] CO2 [Moles/Vol] 18.4 mmol/L Low 21.0-32.0 [facility] Creatinine [Mass/Vol] 2.86 mg/dL High 0.55-1.02 [facility] GFR/1.73 sq M.predicted MDRD (S/P/Bld) [Vol rate/Area] 19 mL/min/{1.73_m2} Low >=60 mL/min/1.7 3m 2 [facility] Glucose [Mass/Vol] 218 mg/dL High 74-106 [facility] Lipase [Catalytic activity/Vol] 78.0 U/L High 16.0-77.0 [facility] Potassium [Moles/Vol] 3.8 mmol/L 3.5-5.1 [facility] Protein [Mass/Vol] 5.9 g/dL Low 6.4-8.2 [facility] Sodium [Moles/Vol] 142 mmol/L 136-145 [facility] TSH Qn 1.683 m[IU]/L 0.358-3.74 0 [facility] Urea nitrogen [Mass/Vol] 47.0 mg/dL High 7.0-18.0 [facility] Urea nitrogen/Creatinine [Mass ratio] 16.4 mg/mg [facility] Laboratory - Hematology and Cell countson 09-14-2024 Immature granulocytes/100 WBC (Bld) 1.0 % High 0.0-0.5 [facility] Laboratory - Specimen inform ationon 09-14-2024 Appearance (U) CLEAR CLEAR [facility] Color (U) LT. YELLOW YELLOW [facility] Laboratory - Urinalysison Leukocyte esterase Test strip Ql (U) MODERATE Abnormal NEGATIVE [facility] Mucus Ql (Urine sed) NONE SEEN NONE SEEN [facility] Nitrite Ql (U) Negative NEGATIVE [facility] Protein Ql (U) TRACE mg/dL NEG/TRACE [facility] Leukocytes [#/volume] correc dominick for nucleated erythrocytes in Blood by Automated counon 09-14-2024 WBC corrected for nucl RBC Auto (Bld) [#/Vol] 15.6 10 3/uL High 4.0-11.0 [facility] Lymphocytes Auto (Bld) [#/Vo l]on 09-14-2024 Lymphocytes (Bld) [#/Vol] 3.0 10 3/uL 1.2-3.8 [facility] Lymphocytes/100 WBC Auto (Bl d)on 09-14-2024 Lymphocytes/100 WBC (Bld) 19.0 % Low 20.5-60.0 [facility] MCH Auto (RBC) [Entitic mass ]on 09-14-2024 MCH (RBC) [Entitic mass] 32.2 pg 26.7-34.0 [facility] MCHC Auto (RBC) [Mass/Vol]on 09-14-2024 MCHC (RBC) [Mass/Vol] 33.9 g/dL 29.9-35.2 [facility] MCV Auto (RBC) [Entitic vol] on 09-14-2024 MCV (RBC) [Entitic vol] 94.9 fL 81.0-99.0 [facility] Monocytes Auto (Bld) [#/Vol] on 09-14-2024 Monocytes (Bld) [#/Vol] 0.8 10 3/uL 0.3-0.8 [facility] Monocytes/100 WBC Auto (Bld) on 09-14-2024 Monocytes/100 WBC (Bld) 5.1 % 1.7-12.0 [facility] Neutrophils Auto (Bld) [#/Vo l]on 09-14-2024 Neutrophils (Bld) [#/Vol] 11.6 10 3/uL High 1.4-6.5 [facility] Neutrophils/100 WBC Auto (Bl d)on 09-14-2024 Neutrophils/100 WBC (Bld) 74.3 % 43.0-75.0 [facility] No Panel Informationon 09-14 Troponin I High Sensitivity 6.9 pg/mL 4.0-51.3 [facility] Comment on above: CUT-OFF POINTS HAVE BEEN ESTABLISHED BASED ON THE FOURTHUNIVERSAL DEFINITION OF MYOCARDIAL INFARCTION. THE UPPERREFERENCE LIMIT (URL) OF TROPONIN, DEFINED THE 99THPERCENTILE OF cTnI DISTRIBUTION IN A REFERENCE POPULATION,HAS BEEN CONFIRMED THE DECISION THRESHOLD FOR MIDIAGNOSIS.99TH PERCENTILE = 51.4 PG/MLNOTE: HIGH-SENSITIVITY TROPONIN ASSAY IS NOT INTENDED TO BEUSED IN ISOLATION BUT SHOULD BE INTERPRETED IN CONJUNCTIONWITH OTHER DIAGNOSTIC AND CLINICAL INFORMATION. Miscellaneous Test Comment See comment [facility] Comment on above: Specimen Source: UCC - Urine,Clean Catch - Urine CC - 200.100 Urine Bacteria TRACE #/HPF Abnormal NONE SEEN [facility] Urine Culture Reflexed YES [facility] Urine Culture Result 1 \R\ Urine Culture , Routine [facility] Urine Microscopic Review YES [facility] Urine Occult Blood TRACE-I NEGATIVE [facility] Urine Other Casts NONE SEEN #/LPF NONE SEEN [facility] Urine Other Crystals None Seen #/HPF None Seen [facility] Urine RBC 2-5 #/HPF Abnormal 0-2 [facility] Urine Squamous Epithelial Cells FEW #/LPF Abnormal NONE/RARE [facility] Urine WBC 5-10 #/HPF Abnormal NONE SEEN [facility] Eosinophils # (Auto) 0.1 10 3/uL 0.0-0.7 [facility] Immature Granulocyte # (Auto) 0.15 10 3/uL High 0.00-0.03 [facility] Platelet mean volume Auto (B ld) [Entitic vol]on 09-14-2024 Platelet mean volume (Bld) [Entitic vol] 11.3 fL 9.5-13.5 [facility] Platelets Auto (Bld) [#/Vol] on 09-14-2024 Platelets (Bld) [#/Vol] 229 10 3/uL 150-450 [facility] RBC Auto (Bld) [#/Vol]on RBC (Bld) [#/Vol] 3.95 10 6/uL Low 4.20-5.40 [facility] Serum or plasma albumin/glob ulin mass ratioon 09-14-2024 Albumin/Globulin [Mass ratio] 0.8 {ratio} [facility] Serum or plasma anion gap de terminationon 09-14-2024 Anion gap [Moles/Vol] 16.4 mmol/L [facility] Alanine aminotransferase [En zymatic activity/volume] in Serum or PlasmaOrdered By: Claire Choi on 08-01-2024 ALT [Catalytic activity/Vol] 10 U/L Normal 7-52 [facility] Comment on above: Performed By: #### C MP, CBC #### [facility] [address] Albumin [Mass/volume] in Ser um or PlasmaOrdered By: Claire Choi on 08-01-2024 Albumin [Mass/Vol] 3.5 g/dL Normal 2.9-4.4 [facility] Comment on above: Performed By: #### M G, CBC, BMP #### [facility] [address] [place] [address] [place] Albumin [Mass/volume] in Ser um or Plasma by Bromocresol green (BCG) dye binding methoOrdered By: Claire Choi on 08-01-2024 Albumin BCG dye [Mass/Vol] 3.9 g/dL 3.5-5.7 [facility] Alkaline phosphatase [Enzyma tic activity/volume] in Serum or PlasmaOrdered By: Claire Choi on 08-01-2024 ALP [Catalytic activity/Vol] 99 U/L Normal 34-104 [facility] Comment on above: Performed By: #### C MP, CBC #### [facility] [address] [place] [address] [place] Aspartate aminotransferase [ Enzymatic activity/volume] in Serum or PlasmaOrdered By: Claire Choi on 08-01-2024 AST [Catalytic activity/Vol] 14 U/L Normal 13-39 [facility] Comment on above: Performed By: #### C MP, CBC #### [facility] [address] [place] [address] [place] Automated basophil %Ordered By: Claire Choi on 08-01-2024 Basophils/100 WBC (Bld) 0.4 % Normal . [facility] Comment on above: Performed By: #### C MP, CBC #### [address] Automated basophil countOrde red By: Claire Choi on 08-01-2024 Basophils (Bld) [#/Vol] 0.0 10*3/uL Normal 0.0-0.2 [facility] Comment on above: Result Comment: PERF ORMED BY: [place] [address] PATHOLOGIST ACCOUNTING INSTRUCTOR LUIS DEE M.D. Performed By: #### C MP, CBC #### [address] Automated blood monocyte cou ntOrdered By: Claire Choi on 08-01-2024 Monocytes (Bld) [#/Vol] 0.7 10*3/uL Normal 0.0-0.8 [facility] Comment on above: Performed By: #### C MP, CBC #### [address] Automated eosinophil %Ordere d By: Claire Choi on 08-01-2024 Eosinophils/100 WBC (Bld) 1.2 % Normal . [facility] Comment on above: Performed By: #### C MP, CBC #### [address] Automated eosinophil countOr dered By: Claire Choi on 08-01-2024 Eosinophils (Bld) [#/Vol] 0.1 10*3/uL Normal 0.0-0.45 [facility] Comment on above: Performed By: #### C MP, CBC #### [address] Automated monocyte %Ordered By: Claier Choi on 08-01-2024 Monocytes/100 WBC (Bld) 7.9 % Normal . [facility] Comment on above: Performed By: #### C MP, CBC #### [address] Automated neutrophil %Ordere d By: Claire Choi on 08-01-2024 Neutrophils/100 WBC (Bld) 59.7 % Normal . [facility] Comment on above: Performed By: #### C MP, CBC #### [facility] [address] Bilirubin.total [Mass/volume ] in Serum or PlasmaOrdered By: Claire Choi on 08-01-2024 Bilirubin [Mass/Vol] 0.6 mg/dL Normal 0.3-1.0 [facility] Comment on above: Performed By: #### C MP, CBC #### [address] Calcium [Mass/volume] in Ser um or PlasmaOrdered By: Claire Choi on 08-01-2024 Calcium [Mass/Vol] 8.6 mg/dL Normal 8.6-10.3 [facility] Comment on above: Performed By: #### C MP, CBC #### [address] [place] dioxide, total [Moles /volume] in Serum or PlasmaOrdered By: Claire Choi on 08-01-2024 CO2 [Moles/Vol] 22.2 mmol/L Normal 21.0-31.0 [facility] Comment on above: Performed By: #### C MP, CBC #### [place] [address] [place] Chloride [Moles/volume] in S amanda or PlasmaOrdered By: Claire Choi on 08-01-2024 Chloride [Moles/Vol] 108 mmol/L High 98-107 [facility] Comment on above: Performed By: #### C MP, CBC #### [address] Complete Blood Count Auto Di ffon 08-01-2024 Mean Corpuscular HGB Conc 33.6 g/dL Normal 32.0-35.0 [facility] Comment on above: Performed By: #### C MP, CBC #### [address] NRBC% 0.1 /100{WBC} Normal 0-0.5 [facility] Comment on above: Performed By: #### C MP, CBC #### [address] Comprehensive Metabolic Pane natalia 08-01-2024 Albumin [Mass/Vol] 3.9 g/dL Normal 3.5-5.7 [facility] Comment on above: Performed By: #### C MP, CBC #### [address] Creatinine Clr Calc Pharmacy 16.51 Normal [facility] Comment on above: Result Comment: PERF ORMED BY: [place] [address] PATHOLOGIST ACCOUNTING INSTRUCTOR LUIS DEE M.D. Performed By: #### C MP, CBC #### [address] GFR/1.73 sq M.predicted MDRD (S/P/Bld) [Vol rate/Area] 15.173 mL/min/{1.73_m2} Normal [facility] Comment on above: Performed By: #### C MP, CBC #### [address] Creatinine [Mass/volume] in Serum or PlasmaOrdered By: Claire Choi on 08-01-2024 Creatinine [Mass/Vol] 2.98 mg/dL High 0.60-1.20 [facility] Comment on above: Performed By: #### C MP, CBC #### [address] Erythrocyte distribution wid th [Ratio] by Automated countOrdered By: Claire Choi on 08-01-2024 Erythrocyte distribution width (RBC) [Ratio] 13.7 % Normal 11.9-15.3 [facility] Comment on above: Performed By: #### C MP, CBC #### [address] Erythrocytes [#/volume] in B lood by Automated countOrdered By: Claire Choi on 08-01-2024 RBC (Bld) [#/Vol] 3.93 10*6/uL Normal 3.60-5.00 [facility] Comment on above: Performed By: #### C MP, CBC #### [place] [address] [place] Free K+L LT Chains, Qn, Son 08-01-2024 Free Marceline Light Chains, S 47.2 mg/L High 3.3-19.4 [facility] Comment on above: Performed By: #### M G, CBC, BMP #### [address] Free Lambda Light Chains, S 28.6 mg/L High 5.7-26.3 [facility] Comment on above: Performed By: #### M G, CBC, BMP #### [address] Marceline/Lambda Ratio, S 1.65 Normal 0.26-1.65 [facility] Comment on above: Result Comment: Perf ormed at: - [facility] [place] [id number] Hand Stapler: Elpidio Delgado PhD, Phone: [phone] PERFORMED BY: [place] [address] PATHOLOGIST ACCOUNTING INSTRUCTOR LUIS DEE M.D. Performed By: #### M G, CBC, BMP #### [place] [address] [place] Glucose [Mass/volume] in Ser um or PlasmaOrdered By: Claire Choi on 08-01-2024 Glucose [Mass/Vol] 102 mg/dL High 70-100 [facility] Comment on above: ADA recommended refe rence rangeRandom Glucose Reference Range is dependent on time and content of last meal. Glucose of more than 200 mg/dL in a nonstressed, ambulatory subject supports the diagnosis of Diabetes Mellitus. Result Comment: [place] Glucose Reference Range is dependent on time and content of last meal. Glucose of more than 200 mg/dL in a nonstressed, ambulatory subject supports the diagnosis of Diabetes Mellitus. ADA recommended reference range Performed By: #### C MP, CBC #### [facility] [address] [place] [id number] [facility] Hematocrit [Volume Fraction] of Blood by Automated countOrdered By: Claire Choi on 08-01-2024 Hematocrit (Bld) [Volume fraction] 37.9 % Normal 34.0-46.4 [facility] Comment on above: Performed By: #### C MP, CBC #### [facility] [address] [place] [address] [place] Hemoglobin [Mass/volume] in BloodOrdered By: Claire Choi on 08-01-2024 Hemoglobin (Bld) [Mass/Vol] 12.7 g/dL Normal 11.8-15.4 [facility] Comment on above: Performed By: #### C MP, CBC #### [facility] [address] [place] [address] [place] IgA [Mass/volume] in Serum o r PlasmaOrdered By: Claire Choi on 08-01-2024 IgA [Mass/Vol] 241 mg/dL 64-422 [facility] IgE [Units/volume] in Serum or PlasmaOrdered By: Claire Choi on 08-01-2024 IgE Qn 13 [IU]/mL 6-495 [facility] Comment on above: Performed at: [employer] [facility] [address] [id number] Director: Britton Valente MD, Phone: [phone] IgG [Mass/volume] in Serum o r PlasmaOrdered By: Claire Choi on 08-01-2024 IgG [Mass/Vol] 1009 mg/dL [phone] [facility] IgM [Mass/volume] in Serum o r PlasmaOrdered By: Claire Choi on 08-01-2024 IgM [Mass/Vol] 144 mg/dL 26-217 [facility] Comment on above: Performed at: [employer] [address] [id number] Director: Elpidio Delgado PhD, Phone: [phone] Immunofixation,Serumon 08-01 Immunofixation, Serum Comment Normal . [facility] Comment on above: Result Comment: No m onoclonality detected. Performed By: #### M G, CBC, BMP #### [facility] [address] [place] [address] [place] Immunoglobulin A, Serum 241 mg/dL Normal 64-422 [facility] Comment on above: Performed By: #### M G, CBC, BMP #### [facility] [address] [place] [address] [place] Immunoglobulin G 1009 mg/dL Normal [phone] [facility] Comment on above: Performed By: #### M G, CBC, BMP #### [facility] [address] [place] [address] [place] Immunoglobulin M, Serum 144 mg/dL Normal 26-217 [facility] Comment on above: Result Comment: Perf ormed at: CB - [facility] [place] [id number] [place] [id number] Hand Stapler: Elpidio Delgado PhD, Phone: [phone] Performed By: #### M G, CBC, BMP #### [facility] [address] [place] [id number] [facility] Immunoglobulin light chains. kappa.free [Mass/volume] in SerumOrdered By: Claire Choi on 08-01-2024 Immunoglobulin light chains.kappa.free (S) [Mass/Vol] 47.2 mg/L High 3.3-19.4 [facility] Immunoglobulin light chains. kappa.free/Immunoglobulin light chains.lambda.free [MassOrdered By: Claire Choi on 08-01-2024 Immunoglobulin light chains.kappa.free/Immuno globulin light chains.lambda.free (S) [Mass ratio] 1.65 0.26-1.65 [facility] Comment on above: Performed at: CB - [facility] [id number] [place] [id number] Director: Elpidio Delgado PhD, Phone: [phone] Immunoglobulin light chains. lambda.free [Mass/volume] in Serum or PlasmaOrdered By: Claire Choi on 08-01-2024 Immunoglobulin light chains.lambda.free [Mass/Vol] 28.6 mg/L High 5.7-26.3 [facility] Immunoglobulins A/E/G/M, Qno n 08-01-2024 Immunoglobulin E 13 Normal 6-495 [facility] Comment on above: Result Comment: Perf ormed at: BN - [facility] [address] [id number] Hand Stapler: Britton Valente MD, Phone: [phone] Performed By: #### M G, CBC, BMP #### [address] Leukocytes [#/volume] correc dominick for nucleated erythrocytes in Blood by Automated counOrdered By: Claire Choi on 08-01-2024 WBC corrected for nucl RBC Auto (Bld) [#/Vol] 9.0 10*3/uL 3.8-11.6 [facility] Leukocytes [#/volume] in Blo od by Automated countOrdered By: Claire Choi on 08-01-2024 WBC (Bld) [#/Vol] 9.0 10*3/uL Normal 3.8-11.6 [facility] Comment on above: Performed By: #### C MP, CBC #### [facility] [address] [place] [address] [place] Lymphocytes [#/volume] in Bl ood by Automated countOrdered By: Claire Choi on 08-01-2024 Lymphocytes (Bld) [#/Vol] 2.8 10*3/uL Normal 1.00-4.8 [facility] Comment on above: Performed By: #### C MP, CBC #### [facility] [address] [place] [address] [place] Lymphocytes/100 leukocytes i n Blood by Automated countOrdered By: Claire Choi on 08-01-2024 Lymphocytes/100 WBC (Bld) 30.8 % Normal . [facility] Comment on above: Performed By: #### C MP, CBC #### [facility] [address] MCH [Entitic mass] by Automa dominick countOrdered By: Claire Choi on 08-01-2024 MCH (RBC) [Entitic mass] 32.5 pg Normal 24.7-34.3 [facility] Comment on above: Performed By: #### C MP, CBC #### [address] MCHC Auto (RBC) [Mass/Vol]Or dered By: Claire Choi on 08-01-2024 MCHC (RBC) [Mass/Vol] 33.6 g/dL 32.0-35.0 [facility] MCV [Entitic volume] by Auto mated countOrdered By: Claire Choi on 08-01-2024 MCV (RBC) [Entitic vol] 96.6 fL Normal 80-100 [facility] Comment on above: Performed By: #### C MP, CBC #### [address] Neutrophils [#/volume] in Bl ood by Automated countOrdered By: Claire Choi on 08-01-2024 Neutrophils (Bld) [#/Vol] 5.4 10*3/uL Normal 1.8-7.7 [facility] Comment on above: Performed By: #### C MP, CBC #### [address] No Panel InformationOrdered By: Claire Choi on 08-01-2024 Estimated GFR (CKD-EPI) 15.173 mL/Min [facility] Creatinine Clearance (Chem 16.51 [facility] Protein Electrophoresis M-Krystian Not observed g/dL Not Observed [facility] Protein Electrophoresis Note Comment . [facility] Comment on above: Protein electrophore sis scan will follow via computer,mail, or digital imaging specialist delivery. Serum Immunofixation Comment . [facility] Comment on above: No monoclonality det ected. Nucleated erythrocytes [Pres ence] in Blood by Automated countOrdered By: Claire Choi on 08-01-2024 Nucleated RBC Auto Ql (Bld) 0.1 /100{WBC} 0-0.5 [facility] Platelet mean volume [Entiti c volume] in Blood by Automated countOrdered By: Claire Choi on 08-01-2024 Platelet mean volume (Bld) [Entitic vol] 9.8 fL Normal 6.3-10.7 [facility] Comment on above: Performed By: #### C MP, CBC #### [place] [address] [place] Platelets [#/volume] in Bloo d by Automated countOrdered By: Claire Choi on 08-01-2024 Platelets (Bld) [#/Vol] 209 10*3/uL Normal 150-450 [facility] Comment on above: Performed By: #### C MP, CBC #### [address] Potassium [Moles/volume] in Serum or PlasmaOrdered By: Claire Choi on 08-01-2024 Potassium [Moles/Vol] 4.9 mmol/L Normal 3.5-5.1 [facility] Comment on above: Performed By: #### C MP, CBC #### [place] [address] [place] Protein Electrophoresis, Ser umon 08-01-2024 Wcsbl-3-Ggyrupgx 0.1 g/dL Normal 0.0-0.4 [facility] Comment on above: Performed By: #### M G, CBC, BMP #### [place] [address] [place] Eesys-9-Ktjpgnql 0.9 g/dL Normal 0.4-1.0 [facility] Comment on above: Performed By: #### M G, CBC, BMP #### [address] Beta Globulin 0.9 g/dL Normal 0.7-1.3 [facility] Comment on above: Performed By: #### M G, CBC, BMP #### [address] Gamma Globulin 1.0 g/dL Normal 0.4-1.8 [facility] Comment on above: Performed By: #### M G, CBC, BMP #### [address] M-Krystian Not Observed Normal Not Observed [facility] Comment on above: Performed By: #### M G, CBC, BMP #### [address] SPE-Note Comment Normal . [facility] Comment on above: Result Comment: Prot ein electrophoresis scan will follow via computer, mail, or digital imaging specialist delivery. Performed By: #### M G, CBC, BMP #### [address] Protein [Mass/volume] in Ser um or PlasmaOrdered By: Claire Choi on 08-01-2024 Protein [Mass/Vol] 6.8 g/dL Normal 6.4-8.9 [facility] Comment on above: Performed By: #### C MP, CBC #### [address] Protein [Mass/Vol] 6.5 g/dL Normal 6.0-8.5 [facility] Comment on above: Performed By: #### M Dalia, CBC, BMP #### [address] Serum globulin measurement ( mass/volume)Ordered By: Claire Choi on 08-01-2024 Globulin (S) [Mass/Vol] 3.0 g/dL Normal 2.2-3.9 [facility] Comment on above: Performed By: #### M G, CBC, BMP #### [address] Serum globulin measurement b y calculation (mass/volume)Ordered By: Claire Choi on 08-01-2024 Globulin (S) [Mass/Vol] 2.9 g/dL Normal [facility] Comment on above: Performed By: #### C MP, CBC #### [address] Serum or plasma albumin/glob ulin mass ratioOrdered By: Claire Choi on 08-01-2024 Albumin/Globulin [Mass ratio] 1.3 {ratio} Normal [facility] Comment on above: Performed By: #### C MP, CBC #### [address] Albumin/Globulin [Mass ratio] 1.2 {ratio} Normal 0.7-1.7 [facility] Comment on above: Performed By: #### M G, CBC, BMP #### [address] Serum or plasma alpha 1 glob ulin measurement by electrophoresis (mass/volume)Ordered By: Claire Choi on 08-01-2024 Alpha 1 globulin Elph [Mass/Vol] 0.1 g/dL 0.0-0.4 [facility] Serum or plasma alpha 2 glob ulin measurement by electrophoresis (mass/volume)Ordered By: Claire Choi on 08-01-2024 Alpha 2 globulin Elph [Mass/Vol] 0.9 g/dL 0.4-1.0 [facility] Serum or plasma anion gap de terminationOrdered By: Claire Choi on 08-01-2024 Anion gap [Moles/Vol] 12.7 mmol/L Normal 6.0-15.0 [facility] Comment on above: Performed By: #### C MP, CBC #### [address] Serum or plasma beta globuli n measurement by electrophoresis (mass/volume)Ordered By: Claire Choi on 08-01-2024 Beta globulin Elph [Mass/Vol] 0.9 g/dL 0.7-1.3 [facility] Serum or plasma gamma globul in measurement by electrophoresis (mass/volume)Ordered By: Claire Choi on 08-01-2024 Gamma globulin Elph [Mass/Vol] 1.0 g/dL 0.4-1.8 [facility] Sodium [Moles/volume] in Ser um or PlasmaOrdered By: Claire Choi on 08-01-2024 Sodium [Moles/Vol] 138 mmol/L Normal 136-145 [facility] Comment on above: Performed By: #### C MP, CBC #### [facility] [address] Urea nitrogen [Mass/volume] in Serum or PlasmaOrdered By: Claire Choi on 08-01-2024 Urea nitrogen [Mass/Vol] 40 mg/dL High 7-25 [facility] Comment on above: Performed By: #### C MP, CBC #### [facility] [address] Erythrocyte distribution wid th Auto (RBC) [Ratio]on 06-27-2024 Erythrocyte distribution width (RBC) [Ratio] 12.6 % 11.0-15.0 [facility] Estimated glomerular filtrat ion rate (GFR) non- Americanon 06-27-2024 GFR/1.73 sq M.predicted among non-blacks MDRD (S/P/Bld) [Vol rate/Area] 17 mL/min/{1.73_m2} Low >=60 [facility] Hematocrit Auto (Bld) [Volum e fraction]on 06-27-2024 Hematocrit (Bld) [Volume fraction] 40.7 % 36.0-48.0 [facility] Hemoglobin [Mass/volume] in Bloodon 06-27-2024 Hemoglobin (Bld) [Mass/Vol] 13.2 g/dL 12.0-16.0 [facility] Laboratory - Chemistry and C hemistry - challengeon 06-27-2024 Bilirubin Ql (U) Negative NEGATIVE [facility] Glucose (U) [Mass/Vol] Negative NEGATIVE [facility] Ketones Ql (U) Negative NEGATIVE [facility] pH (U) 6.0 [pH] 5.0-9.0 [facility] Specific gravity (U) [Rel density] 1.020 1.005-1.02 5 [facility] Urobilinogen Qn (U) 0.2 {Marley'U}/dL 0.2-1.0 [facility] Albumin [Mass/Vol] 3.2 g/dL Low 3.4-5.0 [facility] Calcium [Mass/Vol] 8.6 mg/dL 8.5-10.1 [facility] Chloride [Moles/Vol] 103 mmol/L 98-107 [facility] CO2 [Moles/Vol] 26.2 mmol/L 21.0-32.0 [facility] Creatinine [Mass/Vol] 2.67 mg/dL High 0.55-1.02 [facility] GFR/1.73 sq M.predicted MDRD (S/P/Bld) [Vol rate/Area] 21 mL/min/{1.73_m2} Low >=60 [facility] Glucose [Mass/Vol] 139 mg/dL High 74-106 [facility] Magnesium [Mass/Vol] 2.0 mg/dL 1.8-2.4 [facility] Potassium [Moles/Vol] 5.2 mmol/L High 3.5-5.1 [facility] Sodium [Moles/Vol] 136 mmol/L 136-145 [facility] Urate [Mass/Vol] 6.4 mg/dL High 2.6-6.0 [facility] Urea nitrogen [Mass/Vol] 38.0 mg/dL High 7.0-18.0 [facility] Urea nitrogen/Creatinine [Mass ratio] 14.2 mg/mg [facility] Laboratory - Specimen inform ationon 06-27-2024 Appearance (U) CLEAR CLEAR [facility] Color (U) YELLOW YELLOW [facility] Laboratory - Urinalysison Leukocyte esterase Test strip Ql (U) MODERATE Abnormal NEGATIVE [facility] Mucus Ql (Urine sed) TRACE Abnormal NONE SEEN [facility] Nitrite Ql (U) Negative NEGATIVE [facility] Protein (U) [Mass/Vol] 85.7 mg/dL High <=11.9 [facility] Protein Ql (U) 30 mg/dL Abnormal NEG/TRACE [facility] Leukocytes [#/volume] correc dominick for nucleated erythrocytes in Blood by Automated counon 06-27-2024 WBC corrected for nucl RBC Auto (Bld) [#/Vol] 7.9 10 3/uL 4.0-11.0 [facility] MCH Auto (RBC) [Entitic mass ]on 06-27-2024 MCH (RBC) [Entitic mass] 31.6 pg 26.7-34.0 [facility] MCHC Auto (RBC) [Mass/Vol]on 06-27-2024 MCHC (RBC) [Mass/Vol] 32.4 g/dL 29.9-35.2 [facility] MCV Auto (RBC) [Entitic vol] on 06-27-2024 MCV (RBC) [Entitic vol] 97.4 fL 81.0-99.0 [facility] No Panel Informationon 06-27 Urine Bacteria MODERATE #/HPF Abnormal NONE SEEN [facility] Urine Culture Reflexed YES [facility] Urine Occult Blood TRACE-I NEGATIVE [facility] Urine Other Casts NONE SEEN #/LPF NONE SEEN [facility] Urine Other Crystals None Seen #/HPF None Seen [facility] Urine Random Creatinine 190.05 mg/dL 20.0 0-300. 00 [facility] Urine RBC NONE SEEN #/HPF 0-2 [facility] Urine Squamous Epithelial Cells FEW #/LPF Abnormal NONE/RARE [facility] Urine Transitional Epithelial Cells RARE #/LPF Abnormal NONE SEEN [facility] Urine WBC 10-20 #/HPF Abnormal NONE SEEN [facility] 25-Hydroxy Vitamin D Total 43.9 ng/mL [facility] Comment on above: <20 ng/mL Vit D defi cient20-<30 ng/mL Vit D -382 ng/mL Vit D sufficient>100 ng/mL Potential Toxicity Parathyroid Hormone (Intact) 105 pg/mL Abnormal 15-65 [facility] Comment on above: Performed at: - [employer] [address] [id number] Director: Elpidio Delgado PhD, Phone: [phone] Phosphorus Level 3.9 mg/dL 2.6-4.7 [facility] Platelet mean volume Auto (B ld) [Entitic vol]on 06-27-2024 Platelet mean volume (Bld) [Entitic vol] 12.1 fL 9.5-13.5 [facility] Platelets Auto (Bld) [#/Vol] on 06-27-2024 Platelets (Bld) [#/Vol] 188 10 3/uL 150-450 [facility] RBC Auto (Bld) [#/Vol]on RBC (Bld) [#/Vol] 4.18 10 6/uL Low 4.20-5.40 [facility] Serum or plasma anion gap de terminationon 06-27-2024 Anion gap [Moles/Vol] 12.0 mmol/L Fi [facility] Urine protein/creatinine rat ioon 06-27-2024 Protein/Creatinine (U) [Ratio] 0.45 [facility] Cholesterol in LDL Calc [Mas s/Vol]on 05-23-2024 Cholesterol in LDL [Mass/Vol] 68.6 mg/dL [facility] Comment on above: <100 mg/dl [id number] 0-129 mg/dl NEAR OR ABOVE [id number] mg/dl BORDERLINE [id number] mg/dl HIGH>190 mg/dl VERY HIGH Cholesterol in VLDL Calc [Ma ss/Vol]on 05-23-2024 Cholesterol in VLDL [Mass/Vol] 28.4 mg/dL [facility] Estimated glomerular filtrat ion rate (GFR) non- Americanon 05-23-2024 GFR/1.73 sq M.predicted among non-blacks MDRD (S/P/Bld) [Vol rate/Area] 17 mL/min/{1.73_m2} Low >=60 [facility] Laboratory - Chemistry and C hemistry - challengeon 05-23-2024 Albumin [Mass/Vol] 3.2 g/dL Low 3.4-5.0 [facility] Calcium [Mass/Vol] 8.7 mg/dL 8.5-10.1 [facility] Chloride [Moles/Vol] 104 mmol/L 98-107 [facility] Cholesterol [Mass/Vol] 154 mg/dL <=200 [facility] Cholesterol in HDL [Mass/Vol] 57 mg/dL 40-60 [facility] Comment on above: > or =60 mg/dl - LOW CARDIOVASCULAR RISK<40 mg/dl - HIGH CARDIOVASCULAR RISK CO2 [Moles/Vol] 26.2 mmol/L 21.0-32.0 [facility] Creatinine [Mass/Vol] 2.71 mg/dL High 0.55-1.02 [facility] GFR/1.73 sq M.predicted MDRD (S/P/Bld) [Vol rate/Area] 20 mL/min/{1.73_m2} Low >=60 [facility] Glucose [Mass/Vol] 147 mg/dL High 74-106 [facility] Potassium [Moles/Vol] 4.9 mmol/L 3.5-5.1 [facility] Sodium [Moles/Vol] 140 mmol/L 136-145 [facility] Triglyceride [Mass/Vol] 142 mg/dL <=150 [facility] Urea nitrogen [Mass/Vol] 31.0 mg/dL High 7.0-18.0 [facility] Urea nitrogen/Creatinine [Mass ratio] 11.4 mg/mg [facility] Microalbumin [Mass/volume] i n Urineon 05-23-2024 Albumin DL <= 20 mg/L (U) [Mass/Vol] 24.5 mg/dL <=30.0 [facility] No Panel Informationon 05-23 25-Hydroxy Vitamin D Total 46.7 ng/mL [facility] Comment on above: <20 ng/mL Vit D defi cient20-<30 ng/mL Vit D [id number] ng/mL Vit D sufficient>100 ng/mL Potential Toxicity C-Peptide 3.7 ng/mL 1.1-4.4 [facility] Comment on above: C-Peptide reference interval is for fasting patients.Performed at: - [facility] [id number] Director: Elpidio Delgado PhD, Phone: [phone] Phosphorus Level 4.1 mg/dL 2.6-4.7 [facility] Urine Random Creatinine 233.38 mg/dL 20.0 0-300. 00 [facility] Serum or plasma anion gap de terminationon 05-23-2024 Anion gap [Moles/Vol] 14.7 mmol/L [facility] Serum or plasma total choles terol/high density lipoprotein (HDL) cholesterol mass wilfred 05-23-2024 Cholesterol.total/Choles terol in HDL [Mass ratio] 2.7 {ratio} [facility] Comment on above: 3.3 - 4.4 LOW RISK4. 4 - 7.1 AVERAGE RISK7.1 - 11.0 MODERATE RISK>11.0 HIGH RISK Urine microalbumin/creatinin e mass ratioon 05-23-2024 Albumin/Creatinine DL <= 20 mg/L (U) [Mass ratio] 104.9 mg/g High 0.0-29.9 [facility] Comment on above: NO MICROALBUMINURIA 0-29 MG/GCLINICAL MICROALBUMINURIA 30-300 MG/GMACROALBUMINURIA >300 MG/G Alanine aminotransferase [En zymatic activity/volume] in Serum or PlasmaOrdered By: Misti Connolly on 04-25-2024 ALT [Catalytic activity/Vol] 12 U/L Normal 7-52 [facility] Comment on above: Performed By: #### M Dalia, CBC, BMP #### [facility] [address] [place] [address] [place] Albumin [Mass/volume] in Ser um or PlasmaOrdered By: Misti Connolly on 04-25-2024 Albumin [Mass/Vol] 3.4 g/dL Normal 2.9-4.4 [facility] Comment on above: Performed By: #### Marie Gómez, CBC, BMP #### [facility] [address] [place] [address] [place] Albumin [Mass/volume] in Ser um or Plasma by Bromocresol green (BCG) dye binding methoOrdered By: Misti Connolly on 04-25-2024 Albumin BCG dye [Mass/Vol] 3.6 g/dL 3.5-5.7 [facility] Alkaline phosphatase [Enzyma tic activity/volume] in Serum or PlasmaOrdered By: Misti Connolly on 04-25-2024 ALP [Catalytic activity/Vol] 106 U/L High 34-104 [facility] Comment on above: Performed By: #### M G, CBC, BMP #### [facility] [address] [place] [address] [place] Aspartate aminotransferase [ Enzymatic activity/volume] in Serum or PlasmaOrdered By: Misti Jeanboske on 04-25-2024 AST [Catalytic activity/Vol] 15 U/L Normal 13-39 [facility] Comment on above: Performed By: #### M G, CBC, BMP #### [address] Automated basophil %Ordered By: Misti Mohsen on 04-25-2024 Basophils/100 WBC (Bld) 0.6 % Normal . [facility] Comment on above: Performed By: #### M G, CBC, BMP #### [address] Automated basophil countOrde red By: Misti Mohsen on 04-25-2024 Basophils (Bld) [#/Vol] 0.0 10*3/uL Normal 0.0-0.2 [facility] Comment on above: Result Comment: PERF ORMED BY: [place] [address] PATHOLOGIST ACCOUNTING INSTRUCTOR LUIS DEE M.D. Performed By: #### M G, CBC, BMP #### [address] Automated blood monocyte cou ntOrdered By: Misti Mohsen on 04-25-2024 Monocytes (Bld) [#/Vol] 0.5 10*3/uL Normal 0.0-0.8 [facility] Comment on above: Performed By: #### M G, CBC, BMP #### [address] Automated eosinophil %Ordere d By: Misti Mohsen on 04-25-2024 Eosinophils/100 WBC (Bld) 1.4 % Normal . [facility] Comment on above: Performed By: #### M G, CBC, BMP #### [address] Automated eosinophil countOr dered By: Misti Mohsen on 04-25-2024 Eosinophils (Bld) [#/Vol] 0.1 10*3/uL Normal 0.0-0.45 [facility] Comment on above: Performed By: #### M G, CBC, BMP #### [facility] [address] Automated monocyte %Ordered By: Misti Jeanpamela on 04-25-2024 Monocytes/100 WBC (Bld) 6.3 % Normal . [facility] Comment on above: Performed By: #### M G, CBC, BMP #### [facility] [address] Automated neutrophil %Ordere d By: Misti Mohsen on 04-25-2024 Neutrophils/100 WBC (Bld) 60.7 % Normal . [facility] Comment on above: Performed By: #### M G, CBC, BMP #### [facility] [address] Bilirubin.total [Mass/volume ] in Serum or PlasmaOrdered By: Misti Mohsen on 04-25-2024 Bilirubin [Mass/Vol] 0.3 mg/dL Normal 0.3-1.0 [facility] Comment on above: Performed By: #### M G, CBC, BMP #### [facility] [address] [place] [address] [place] Calcium [Mass/volume] in Ser um or PlasmaOrdered By: Misti Mohsen on 04-25-2024 Calcium [Mass/Vol] 8.6 mg/dL Normal 8.6-10.3 [facility] Comment on above: Performed By: #### M G, CBC, BMP #### [facility] [address] [place] [address] [place] Carbon dioxide, total [Moles /volume] in Serum or PlasmaOrdered By: Misti Mohsen on 04-25-2024 CO2 [Moles/Vol] 20.5 mmol/L Low 21.0-31.0 [facility] Comment on above: Performed By: #### M G, CBC, BMP #### [facility] [address] [place] [address] [place] Chloride [Moles/volume] in S amanda or PlasmaOrdered By: Misti Mohsen on 04-25-2024 Chloride [Moles/Vol] 108 mmol/L High 98-107 [facility] Comment on above: Performed By: #### M G, CBC, BMP #### [address] Complete Blood Count Auto Di ffon 04-25-2024 Mean Corpuscular HGB Conc 33.3 g/dL Normal 32.0-35.0 [facility] Comment on above: Performed By: #### M G, CBC, BMP #### [facility] [address] [place] [address] NRBC% 0.1 /100{WBC} Normal 0-0.5 [facility] Comment on above: Performed By: #### M G, CBC, BMP #### [address] Comprehensive Metabolic Pane natalia 04-25-2024 Albumin [Mass/Vol] 3.6 g/dL Normal 3.5-5.7 [facility] Comment on above: Performed By: #### M G, CBC, BMP #### [address] Creatinine Clr Calc Pharmacy 20.35 Normal [facility] Comment on above: Result Comment: PERF ORMED BY: [place] [address] PATHOLOGIST ACCOUNTING INSTRUCTOR LUIS DEE M.D. Performed By: #### M G, CBC, BMP #### [address] GFR/1.73 sq M.predicted MDRD (S/P/Bld) [Vol rate/Area] 19.217 mL/min/{1.73_m2} Normal [facility] Comment on above: Performed By: #### M G, CBC, BMP #### [address] Creatinine [Mass/volume] in Serum or PlasmaOrdered By: Misti Connolly on 04-25-2024 Creatinine [Mass/Vol] 2.46 mg/dL High 0.60-1.20 [facility] Comment on above: Performed By: #### M G, CBC, BMP #### [place] [address] [place] Erythrocyte distribution wid th [Ratio] by Automated countOrdered By: Misti Connolly on 04-25-2024 Erythrocyte distribution width (RBC) [Ratio] 14.0 % Normal 11.9-15.3 [facility] Comment on above: Performed By: #### M G, CBC, BMP #### [place] [address] [place] Erythrocytes [#/volume] in B lood by Automated countOrdered By: Misti Connolly on 04-25-2024 RBC (Bld) [#/Vol] 3.86 10*6/uL Normal 3.60-5.00 [facility] Comment on above: Performed By: #### M G, CBC, BMP #### [address] Free K+L LT Chains, Qn, Son 04-25-2024 Free Marceline Light Chains, S 48.0 mg/L High 3.3-19.4 [facility] Comment on above: Performed By: #### M G, CBC, BMP #### [address] Free Lambda Light Chains, S 30.4 mg/L High 5.7-26.3 [facility] Comment on above: Performed By: #### M G, CBC, BMP #### [address] Marceline/Lambda Ratio, S 1.58 Normal 0.26-1.65 [facility] Comment on above: Result Comment: Perf ormed at: [facility] - [facility] [address] [id number] Hand Stapler: Elpidio Delgado PhD, Phone: [phone] PERFORMED BY: [place] [address] PATHOLOGIST ACCOUNTING INSTRUCTOR LUIS DEE M.D. Performed By: #### M G, CBC, BMP #### [address] Glucose [Mass/volume] in Ser um or PlasmaOrdered By: Misti Jeanpamela on 04-25-2024 Glucose [Mass/Vol] 242 mg/dL High 70-100 [facility] Comment on above: ADA recommended refe rence rangeRandom Glucose Reference Range is dependent on time and content of last meal. Glucose of more than 200 mg/dL in a nonstressed, ambulatory subject supports the diagnosis of Diabetes Mellitus. Result Comment: [place] om Glucose Reference Range is dependent on time and content of last meal. Glucose of more than 200 mg/dL in a nonstressed, ambulatory subject supports the diagnosis of Diabetes Mellitus. ADA recommended reference range Performed By: #### M G, CBC, BMP #### [facility] [address] [place] [id number] [facility] Hematocrit [Volume Fraction] of Blood by Automated countOrdered By: Misti Jeanpamela on 04-25-2024 Hematocrit (Bld) [Volume fraction] 37.2 % Normal 34.0-46.4 [facility] Comment on above: Performed By: #### M G, CBC, BMP #### [facility] [address] [place] [address] [place] Hemoglobin [Mass/volume] in BloodOrdered By: Misti Mohsen on 04-25-2024 Hemoglobin (Bld) [Mass/Vol] 12.4 g/dL Normal 11.8-15.4 [facility] Comment on above: Performed By: #### M G, CBC, BMP #### [facility] [address] [place] [id number] [place] IgA [Mass/volume] in Serum o r PlasmaOrdered By: Claire Choi on 04-25-2024 IgA [Mass/Vol] 214 mg/dL 64-422 [facility] IgG [Mass/volume] in Serum o r PlasmaOrdered By: Claire Choi on 04-25-2024 IgG [Mass/Vol] 906 mg/dL [phone] [facility] IgM [Mass/volume] in Serum o r PlasmaOrdered By: Claire Choi on 04-25-2024 IgM [Mass/Vol] 165 mg/dL 26-217 [facility] Comment on above: Performed at: [facility] [id number] [place], [place] [id number] Director: Elpidio Delgado PhD, Phone: [phone] Immunofixation,Serumon 04-25 Immunofixation, Serum Normal . [facility] Comment on above: Result Comment: No m onoclonality detected. Performed By: #### M G, CBC, BMP #### [facility] [address] [place] [address] [facility] Immunoglobulin A, Serum 222 mg/dL Normal 64-422 [facility] Comment on above: Performed By: #### M G, CBC, BMP #### [facility] [address] [place] [address] [place] Immunoglobulin G 892 mg/dL Normal 586-1602 [facility] Comment on above: Performed By: #### M G, CBC, BMP #### [facility] [address] [place] [address] [place] Immunoglobulin M, Serum 161 mg/dL Normal 26-217 [facility] Comment on above: Result Comment: Perf ormed at: [employer] [facility] [address] [id number] Hand Stapler: Elpidio Delgado PhD, Phone: [phone] Performed By: #### M G, CBC, BMP #### [facility] [address] [place] [id number] [facility] Immunoglobulin light chains. kappa.free [Mass/volume] in SerumOrdered By: Misti Connolly on 04-25-2024 Immunoglobulin light chains.kappa.free (S) [Mass/Vol] 48.0 mg/L High 3.3-19.4 [facility] Immunoglobulin light chains. kappa.free/Immunoglobulin light chains.lambda.free [MassOrdered By: Misti Connolly on 04-25-2024 Immunoglobulin light chains.kappa.free/Immuno globulin light chains.lambda.free (S) [Mass ratio] 1.58 0.26-1.65 [facility] Comment on above: Performed at: [employer] [address] [id number] Director: Elpidio Delgado PhD, Phone: [phone] Immunoglobulin light chains. lambda.free [Mass/volume] in Serum or PlasmaOrdered By: Misti Connolly on 04-25-2024 Immunoglobulin light chains.lambda.free [Mass/Vol] 30.4 mg/L High 5.7-26.3 [facility] Immunoglobulins A/G/M, Qn, S debby 04-25-2024 Immunoglobulin A, Serum 214 mg/dL Normal 64-422 [facility] Comment on above: Performed By: #### I MM HECTOR #### [facility] , Immunoglobulin G 906 mg/dL Normal [phone] [facility] Comment on above: Performed By: #### I MM HECTOR #### [facility] , Immunoglobulin M, Serum 165 mg/dL Normal 26-217 [facility] Comment on above: Result Comment: Perf ormed at: - [facility] [place] [id number] Hand Stapler: Elpidio Delgado PhD, Phone: [phone] PERFORMED BY: [place] [address] PATHOLOGIST ACCOUNTING INSTRUCTOR LUIS DEE M.D. Performed By: #### I MM HECTOR #### [facility] , Leukocytes [#/volume] correc dominick for nucleated erythrocytes in Blood by Automated counOrdered By: Misti Connolly on 04-25-2024 WBC corrected for nucl RBC Auto (Bld) [#/Vol] 7.9 10*3/uL 3.8-11.6 [facility] Leukocytes [#/volume] in Blo od by Automated countOrdered By: Misti Connolly on 04-25-2024 WBC (Bld) [#/Vol] 7.9 10*3/uL Normal 3.8-11.6 [facility] Comment on above: Performed By: #### M G, CBC, BMP #### [address] Lymphocytes [#/volume] in Bl ood by Automated countOrdered By: Misti Connolly on 04-25-2024 Lymphocytes (Bld) [#/Vol] 2.5 10*3/uL Normal 1.00-4.8 [facility] Comment on above: Performed By: #### M G, CBC, BMP #### [address] Lymphocytes/100 leukocytes i n Blood by Automated countOrdered By: Misti Mohsen on 04-25-2024 Lymphocytes/100 WBC (Bld) 31.0 % Normal . [facility] Comment on above: Performed By: #### M G, CBC, BMP #### [address] MCH [Entitic mass] by Automa dominick countOrdered By: Misti Mohsen on 04-25-2024 MCH (RBC) [Entitic mass] 32.1 pg Normal 24.7-34.3 [facility] Comment on above: Performed By: #### M G, CBC, BMP #### [address] MCHC Auto (RBC) [Mass/Vol]Or dered By: Misti Mohsen on 04-25-2024 MCHC (RBC) [Mass/Vol] 33.3 g/dL 32.0-35.0 [facility] MCV [Entitic volume] by Auto mated countOrdered By: Misti Mohsen on 04-25-2024 MCV (RBC) [Entitic vol] 96.4 fL Normal 80-100 [facility] Comment on above: Performed By: #### M G, CBC, BMP #### [place] [address] [place] Neutrophils [#/volume] in Bl ood by Automated countOrdered By: Misti Mohsen on 04-25-2024 Neutrophils (Bld) [#/Vol] 4.8 10*3/uL Normal 1.8-7.7 [facility] Comment on above: Performed By: #### M G, CBC, BMP #### [address] No Panel InformationOrdered By: Misti Connolly on 04-25-2024 Estimated GFR (CKD-EPI) 19.217 mL/Min [facility] Creatinine Clearance (Chem 20.35 [facility] Protein Electrophoresis M-Krystian Not observed g/dL Not Observed [facility] Protein Electrophoresis Note See comment . [facility] Comment on above: Protein electrophore sis scan will follow via computer,mail, or digital imaging specialist delivery.Performed at: [facility] [place] [id number] Director: Elpidio Delgado PhD, Phone: [phone] Serum Immunofixation See comment . [facility] Comment on above: No monoclonality det ected. Nucleated erythrocytes [Pres ence] in Blood by Automated countOrdered By: Misti Connolly on 04-25-2024 Nucleated RBC Auto Ql (Bld) 0.1 /100{WBC} 0-0.5 [facility] Platelet mean volume [Entiti c volume] in Blood by Automated countOrdered By: Misti Connolly on 04-25-2024 Platelet mean volume (Bld) [Entitic vol] 10.2 fL Normal 6.3-10.7 [facility] Comment on above: Performed By: #### M G, CBC, BMP #### [facility] [address] [place] [address] [place] Platelets [#/volume] in Bloo d by Automated countOrdered By: Misti Connolly on 04-25-2024 Platelets (Bld) [#/Vol] 161 10*3/uL Normal 150-450 [facility] Comment on above: Performed By: #### M G, CBC, BMP #### [facility] [address] [place] [id number] [place] Potassium [Moles/volume] in Serum or PlasmaOrdered By: Misti Connolly on 04-25-2024 Potassium [Moles/Vol] 4.6 mmol/L Normal 3.5-5.1 [facility] Comment on above: Performed By: #### M G, CBC, BMP #### [facility] [address] [place] [id number] [place] Protein Electrophoresis, Ser umon 04-25-2024 Eemhn-2-Kfyeeche 0.1 g/dL Normal 0.0-0.4 [facility] Comment on above: Performed By: #### M G, CBC, BMP #### [address] Vxgtv-7-Jinpebnl 0.9 g/dL Normal 0.4-1.0 [facility] Comment on above: Performed By: #### M G, CBC, BMP #### [facility] [address] [place] [address] Beta Globulin 0.8 g/dL Normal 0.7-1.3 [facility] Comment on above: Performed By: #### M G, CBC, BMP #### [facility] [address] [place] [address] Gamma Globulin 0.9 g/dL Normal 0.4-1.8 [facility] Comment on above: Performed By: #### M G, CBC, BMP #### [address] M-Krystian Not Observed Normal Not Observed [facility] Comment on above: Performed By: #### M G, CBC, BMP #### [address] SPE-Note Normal . [facility] Comment on above: Result Comment: Prot ein electrophoresis scan will follow via computer, mail, or digital imaging specialist delivery. Performed at: - [address] [id number] Hand Stapler: Elpidio Delgado PhD, Phone: [phone] Performed By: #### M G, CBC, BMP #### [place] [id number] [place] Protein [Mass/volume] in Ser um or PlasmaOrdered By: Misti Connolly on 04-25-2024 Protein [Mass/Vol] 6.3 g/dL Low 6.4-8.9 [facility] Comment on above: Performed By: #### M G, CBC, BMP #### [address] Protein [Mass/Vol] 6.1 g/dL Normal 6.0-8.5 [facility] Comment on above: Performed By: #### M G, CBC, BMP #### [facility] [address] [place] [address] Serum globulin measurement b y calculation (mass/volume)Ordered By: Misti Mohsen on 04-25-2024 Globulin (S) [Mass/Vol] 2.7 g/dL Normal 2.2-3.9 [facility] Comment on above: Performed By: #### M G, CBC, BMP #### [address] Serum or plasma albumin/glob ulin mass ratioOrdered By: Misti Connolly on 04-25-2024 Albumin/Globulin [Mass ratio] 1.3 {ratio} Normal 0.7-1.7 [facility] Comment on above: Performed By: #### M G, CBC, BMP #### [address] Serum or plasma alpha 1 glob ulin measurement by electrophoresis (mass/volume)Ordered By: Misti Connolly on 04-25-2024 Alpha 1 globulin Elph [Mass/Vol] 0.1 g/dL 0.0-0.4 [facility] Serum or plasma alpha 2 glob ulin measurement by electrophoresis (mass/volume)Ordered By: Misti Connolly on 04-25-2024 Alpha 2 globulin Elph [Mass/Vol] 0.9 g/dL 0.4-1.0 [facility] Serum or plasma anion gap de terminationOrdered By: Misti Connolly on 04-25-2024 Anion gap [Moles/Vol] 12.1 mmol/L Normal 6.0-15.0 [facility] Comment on above: Performed By: #### M G, CBC, BMP #### [facility] [address] [place] [address] Serum or plasma beta globuli n measurement by electrophoresis (mass/volume)Ordered By: Misti Connolly on 04-25-2024 Beta globulin Elph [Mass/Vol] 0.8 g/dL 0.7-1.3 [facility] Serum or plasma gamma globul in measurement by electrophoresis (mass/volume)Ordered By: Misti Jeanpamela on 04-25-2024 Gamma globulin Elph [Mass/Vol] 0.9 g/dL 0.4-1.8 [facility] Sodium [Moles/volume] in Ser um or PlasmaOrdered By: Misti Jeanpamela on 04-25-2024 Sodium [Moles/Vol] 136 mmol/L Normal 136-145 [facility] Comment on above: Performed By: #### M G, CBC, BMP #### [facility] [address] Urea nitrogen [Mass/volume] in Serum or PlasmaOrdered By: Misti Mohsen on 04-25-2024 Urea nitrogen [Mass/Vol] 31 mg/dL High 7-25 [facility] Comment on above: Performed By: #### M G, CBC, BMP #### [facility] [address] Laboratory - Chemistry and C hemistry - challengeon 04-12-2024 Bilirubin Ql (U) Negative [facility] Glucose (U) [Mass/Vol] Negative [facility] Ketones Ql (U) Negative [facility] pH (U) 6.0 [pH] [facility] Specific gravity (U) [Rel density] 1.005 [facility] Urobilinogen (U) [Mass/Vol] 0 mg/dL [facility] Laboratory - Specimen inform ationon 04-12-2024 Appearance (U) cloudy [facility] Color (U) yellow [facility] Laboratory - Urinalysison Leukocyte esterase Test strip Ql (U) 70+ [facility] Nitrite Ql (U) Negative [facility] Protein Ql (U) 30 [facility] No Panel Informationon 04-12 Urine Occult Blood Negative [facility] Urine Cultureon 04-12-2024 Bacteria identified Cx Nom (U) 20,000 colonies/ml mixed bacterial skin contaminants 2 Days PERFORMED BY: [place] [address] PATHOLOGIST ACCOUNTING INSTRUCTOR LUIS DEE M.D. Normal [facility] Comment on above: Performed By: #### C UU #### [facility] [address] Urine culture routineOrdered By: Curt Clark on 04-12-2024 Bacteria identified Cx Nom (U) 2 Days [facility] Glucose mean value [Mass/vol ume] in Blood Estimated from glycated hemoglobinon 02-15-2024 Average glucose Estimated from glycated hemoglobin (Bld) [Mass/Vol] 166 mg/dL [facility] Laboratory - Hematology and Cell countson 02-15-2024 HbA1c (Bld) [Mass fraction] 7.4 % 4.5-6.2 [facility] Comment on above: ADA RECOMMENDED LIMI T 4.0 - 6.0ADA THERAPEUTIC TARGET < 7.0ACTION SUGGESTED> 7.0 Alanine aminotransferase [En zymatic activity/volume] in Serum or PlasmaOrdered By: Claire Choi on 01-17-2024 ALT [Catalytic activity/Vol] 8 U/L Normal 7-52 [facility] Comment on above: Performed By: #### V BG #### Point of Care testing , Albumin [Mass/volume] in Ser um or PlasmaOrdered By: Claire Choi on 01-17-2024 Albumin [Mass/Vol] 3.4 g/dL Normal 2.9-4.4 [facility] Comment on above: Performed By: #### V BG #### Point of Care testing , Albumin [Mass/volume] in Ser um or Plasma by Bromocresol green (BCG) dye binding methoOrdered By: Claire Choi on 01-17-2024 Albumin BCG dye [Mass/Vol] 3.8 g/dL 3.5-5.7 [facility] Alkaline phosphatase [Enzyma tic activity/volume] in Serum or PlasmaOrdered By: Claire Choi on 01-17-2024 ALP [Catalytic activity/Vol] 103 U/L Normal 34-104 [facility] Comment on above: Performed By: #### V BG #### Point of Care testing , Aspartate aminotransferase [ Enzymatic activity/volume] in Serum or PlasmaOrdered By: Claire Choi on 01-17-2024 AST [Catalytic activity/Vol] 12 U/L Low 13-39 [facility] Comment on above: Performed By: #### V BG #### Point of Care testing , Automated basophil %Ordered By: Claire Choi on 01-17-2024 Basophils/100 WBC (Bld) 0.6 % Normal . [facility] Comment on above: Performed By: #### V BG #### Point of Care testing , Automated basophil countOrde red By: Claire Choi on 01-17-2024 Basophils (Bld) [#/Vol] 0.1 10*3/uL Normal 0.0-0.2 [facility] Comment on above: Result Comment: PERF ORMED BY: [facility] [address] [place] [address] PATHOLOGIST ACCOUNTING INSTRUCTOR LUIS DEE M.D. Performed By: #### V BG #### Point of Care testing , Automated blood monocyte cou ntOrdered By: Claire Choi on 01-17-2024 Monocytes (Bld) [#/Vol] 0.6 10*3/uL Normal 0.0-0.8 [facility] Comment on above: Performed By: #### V BG #### Point of Care testing , Automated eosinophil %Ordere d By: Claire Choi on 01-17-2024 Eosinophils/100 WBC (Bld) 2.0 % Normal . [facility] Comment on above: Performed By: #### V BG #### Point of Care testing , Automated eosinophil countOr dered By: Claire Choi on 01-17-2024 Eosinophils (Bld) [#/Vol] 0.2 10*3/uL Normal 0.0-0.45 [facility] Comment on above: Performed By: #### V BG #### Point of Care testing , Automated monocyte %Ordered By: Claire Choi on 01-17-2024 Monocytes/100 WBC (Bld) 7.4 % Normal . [facility] Comment on above: Performed By: #### V BG #### Point of Care testing , Automated neutrophil %Ordere d By: Claire Choi on 01-17-2024 Neutrophils/100 WBC (Bld) 64.6 % Normal . [facility] Comment on above: Performed By: #### V BG #### Point of Care testing , Bilirubin.total [Mass/volume ] in Serum or PlasmaOrdered By: Claire Choi on 01-17-2024 Bilirubin [Mass/Vol] 0.5 mg/dL Normal 0.3-1.0 [facility] Comment on above: Performed By: #### V BG #### Point of Care testing , Calcium [Mass/volume] in Ser um or PlasmaOrdered By: Claire Choi on 01-17-2024 Calcium [Mass/Vol] 8.6 mg/dL Normal 8.6-10.3 [facility] Comment on above: Performed By: #### V BG #### Point of Care testing , Carbon dioxide, total [Moles /volume] in Serum or PlasmaOrdered By: Claire Choi on 01-17-2024 CO2 [Moles/Vol] 20.0 mmol/L Low 21.0-31.0 [facility] Comment on above: Performed By: #### V BG #### Point of Care testing , Chloride [Moles/volume] in S amanda or PlasmaOrdered By: Claire Choi on 01-17-2024 Chloride [Moles/Vol] 112 mmol/L High 98-107 [facility] Comment on above: Performed By: #### V BG #### Point of Care testing , Complete Blood Count Auto Di ffon 01-17-2024 Mean Corpuscular HGB Conc 33.7 g/dL Normal 32.0-35.0 [facility] Comment on above: Performed By: #### V BG #### Point of Care testing , NRBC% 0.0 /100{WBC} Normal 0-0.5 [facility] Comment on above: Performed By: #### V BG #### Point of Care testing , Comprehensive Metabolic Pane natalia 01-17-2024 Albumin [Mass/Vol] 3.8 g/dL Normal 3.5-5.7 [facility] Comment on above: Performed By: #### V BG #### Point of Care testing , Creatinine Clr Calc Pharmacy 21.10 Normal [facility] Comment on above: Result Comment: PERF ORMED BY: [facility] [place] [address] PATHOLOGIST ACCOUNTING INSTRUCTOR LUIS DEE M.D. Performed By: #### V BG #### Point of Care testing , GFR/1.73 sq M.predicted MDRD (S/P/Bld) [Vol rate/Area] 20.724 mL/min/{1.73_m2} Normal [facility] Comment on above: Performed By: #### V BG #### Point of Care testing , Creatinine [Mass/volume] in Serum or PlasmaOrdered By: Claire Choi on 01-17-2024 Creatinine [Mass/Vol] 2.31 mg/dL High 0.60-1.20 [facility] Comment on above: Performed By: #### V BG #### Point of Care testing , Erythrocyte distribution wid th [Ratio] by Automated countOrdered By: Claire Choi on 01-17-2024 Erythrocyte distribution width (RBC) [Ratio] 13.3 % Normal 11.9-15.3 [facility] Comment on above: Performed By: #### V BG #### Point of Care testing , Erythrocytes [#/volume] in B lood by Automated countOrdered By: Claire Choi on 01-17-2024 RBC (Bld) [#/Vol] 3.96 10*6/uL Normal 3.60-5.00 [facility] Comment on above: Performed By: #### V BG #### Point of Care testing , Free K+L LT Chains, Qn, Son 01-17-2024 Free Marceline Light Chains, S 39.5 mg/L High 3.3-19.4 [facility] Comment on above: Performed By: #### V BG #### Point of Care testing , Free Lambda Light Chains, S 22.8 mg/L Normal 5.7-26.3 [facility] Comment on above: Performed By: #### V BG #### Point of Care testing , Marceline/Lambda Ratio, S 1.73 High 0.26-1.65 [facility] Comment on above: Result Comment: Perf ormed at: CB - [facility] [address] [id number] Hand Stapler: Elpidio Delgado PhD, Phone: [phone] PERFORMED BY: [facility] [place] [address] PATHOLOGIST ACCOUNTING INSTRUCTOR LUIS DEE M.D. Performed By: #### V BG #### Point of Care testing , Glucose [Mass/volume] in Ser um or PlasmaOrdered By: Claire Choi on 01-17-2024 Glucose [Mass/Vol] 150 mg/dL High 70-100 [facility] Comment on above: ADA recommended refe rence rangeRandom Glucose Reference Range is dependent on time and content of last meal. Glucose of more than 200 mg/dL in a nonstressed, ambulatory subject supports the diagnosis of Diabetes Mellitus. Result Comment: [place] om Glucose Reference Range is dependent on time and content of last meal. Glucose of more than 200 mg/dL in a nonstressed, ambulatory subject supports the diagnosis of Diabetes Mellitus. ADA recommended reference range Performed By: #### V BG #### Point of Care testing , Hematocrit [Volume Fraction] of Blood by Automated countOrdered By: Claire Choi on 01-17-2024 Hematocrit (Bld) [Volume fraction] 37.6 % Normal 34.0-46.4 [facility] Comment on above: Performed By: #### V BG #### Point of Care testing , Hemoglobin [Mass/volume] in BloodOrdered By: Claire Choi on 01-17-2024 Hemoglobin (Bld) [Mass/Vol] 12.7 g/dL Normal 11.8-15.4 [facility] Comment on above: Performed By: #### V BG #### Point of Care testing , IgA [Mass/volume] in Serum o r PlasmaOrdered By: Claire Choi on 01-17-2024 IgA [Mass/Vol] 214 mg/dL 64-422 [facility] IgG [Mass/volume] in Serum o r PlasmaOrdered By: Claire Choi on 01-17-2024 IgG [Mass/Vol] 896 mg/dL 586-1602 [facility] IgM [Mass/volume] in Serum o r PlasmaOrdered By: Claire Choi on 01-17-2024 IgM [Mass/Vol] 187 mg/dL 26-217 [facility] Comment on above: Performed at: [employer] [address] [id number] Director: Elpidio Delgado PhD, Phone: [phone] Immunofixation,Serumon 01-16 Immunofixation, Serum Normal . [facility] Comment on above: Result Comment: No m onoclonality detected. Performed By: #### V BG #### Point of Care testing , Immunoglobulin A, Serum 214 mg/dL Normal 64-422 [facility] Comment on above: Performed By: #### V BG #### Point of Care testing , Immunoglobulin G 896 mg/dL Normal 586-[address] [facility] Comment on above: Performed By: #### V BG #### Point of Care testing , Immunoglobulin M, Serum 187 mg/dL Normal 26-217 [facility] Comment on above: Result Comment: Perf ormed at: [employer] [facility] [place] [id number] [place], [place] [id number] Hand Stapler: Elpidio Delgado PhD, Phone: [phone] Performed By: #### V BG #### Point of Care testing , Immunoglobulin light chains. kappa.free [Mass/volume] in SerumOrdered By: Claire Choi on 01-17-2024 Immunoglobulin light chains.kappa.free (S) [Mass/Vol] 39.5 mg/L 3.3-19.4 [facility] Immunoglobulin light chains. kappa.free/Immunoglobulin light chains.lambda.free [MassOrdered By: Claire Choi on 01-17-2024 Immunoglobulin light chains.kappa.free/Immuno globulin light chains.lambda.free (S) [Mass ratio] 1.73 0.26-1.65 [facility] Comment on above: Performed at: [employer] [address], [place] [id number] Director: Eplidio Delgado PhD, Phone: [phone] Immunoglobulin light chains. lambda.free [Mass/volume] in Serum or PlasmaOrdered By: Claire Choi on 01-17-2024 Immunoglobulin light chains.lambda.free [Mass/Vol] 22.8 mg/L 5.7-26.3 [facility] Leukocytes [#/volume] correc dominick for nucleated erythrocytes in Blood by Automated counOrdered By: Claire Choi on 01-17-2024 WBC corrected for nucl RBC Auto (Bld) [#/Vol] 8.5 10*3/uL 3.8-11.6 [facility] Leukocytes [#/volume] in Blo od by Automated countOrdered By: Claire Choi on 01-17-2024 WBC (Bld) [#/Vol] 8.5 10*3/uL Normal 3.8-11.6 [facility] Comment on above: Performed By: #### V BG #### Point of Care testing , Lymphocytes [#/volume] in Bl ood by Automated countOrdered By: Claire Choi on 01-17-2024 Lymphocytes (Bld) [#/Vol] 2.2 10*3/uL Normal 1.00-4.8 [facility] Comment on above: Performed By: #### V BG #### Point of Care testing , Lymphocytes/100 leukocytes i n Blood by Automated countOrdered By: Claire Choi on 01-17-2024 Lymphocytes/100 WBC (Bld) 25.4 % Normal . [facility] Comment on above: Performed By: #### V BG #### Point of Care testing , MCH [Entitic mass] by Automa dominick countOrdered By: Claire Choi on 01-17-2024 MCH (RBC) [Entitic mass] 31.9 pg Normal 24.7-34.3 [facility] Comment on above: Performed By: #### V BG #### Point of Care testing , MCHC Auto (RBC) [Mass/Vol]Or dered By: Claire Choi on 01-17-2024 MCHC (RBC) [Mass/Vol] 33.7 g/dL 32.0-35.0 [facility] MCV [Entitic volume] by Auto mated countOrdered By: Claire Choi on 01-17-2024 MCV (RBC) [Entitic vol] 94.8 fL Normal 80-100 [facility] Comment on above: Performed By: #### V BG #### Point of Care testing , Neutrophils [#/volume] in Bl ood by Automated countOrdered By: Claire Choi on 01-17-2024 Neutrophils (Bld) [#/Vol] 5.5 10*3/uL Normal 1.8-7.7 [facility] Comment on above: Performed By: #### V BG #### Point of Care testing , No Panel InformationOrdered By: Claire Choi on 01-17-2024 Estimated GFR (CKD-EPI) 20.724 mL/Min [facility] Pharmacy Creatinine Clearance (Chem 21.10 [facility] Protein Electrophoresis M-Krystian Comment: g/dL Not Observed [facility] Comment on above: SPE shows a beta hector ma band of restricted mobility due tofibrinogen in the plasma sample submitted. Protein Electrophoresis Note See comment . [facility] Comment on above: Protein electrophore sis scan will follow via computer,mail, or digital imaging specialist delivery.Performed at: [employer] [address] [id number] Director: Elpidio Delgado PhD, Phone: [phone] Serum Immunofixation See comment . [facility] Comment on above: No monoclonality det ected. Nucleated erythrocytes [Pres ence] in Blood by Automated countOrdered By: Claire Choi on 01-17-2024 Nucleated RBC Auto Ql (Bld) 0.0 /100{WBC} 0-0.5 [facility] Platelet mean volume [Entiti c volume] in Blood by Automated countOrdered By: Claire Choi on 01-17-2024 Platelet mean volume (Bld) [Entitic vol] 10.1 fL Normal 6.3-10.7 [facility] Comment on above: Performed By: #### V BG #### Point of Care testing , Platelets [#/volume] in Bloo d by Automated countOrdered By: Claire Choi on 01-17-2024 Platelets (Bld) [#/Vol] 201 10*3/uL Normal 150-450 [facility] Comment on above: Performed By: #### V BG #### Point of Care testing , Potassium [Moles/volume] in Serum or PlasmaOrdered By: Claire Choi on 01-17-2024 Potassium [Moles/Vol] 4.6 mmol/L Normal 3.5-5.1 [facility] Comment on above: Performed By: #### V BG #### Point of Care testing , Protein Electrophoresis, Ser umon 01-17-2024 Pigzb-3-Yvcwugrj 0.1 g/dL Normal 0.0-0.4 [facility] Comment on above: Performed By: #### V BG #### Point of Care testing , Lgrxx-5-Ipzblukx 0.8 g/dL Normal 0.4-1.0 [facility] Comment on above: Performed By: #### V BG #### Point of Care testing , Beta Globulin 0.9 g/dL Normal 0.7-1.3 [facility] Comment on above: Performed By: #### V BG #### Point of Care testing , Gamma Globulin 1.2 g/dL Normal 0.4-1.8 [facility] Comment on above: Performed By: #### V BG #### Point of Care testing , M-Krystian Comment: Normal Not Observed [facility] Comment on above: Result Comment: SPE shows a beta gamma band of restricted mobility due to fibrinogen in the plasma sample submitted. Performed By: #### V BG #### Point of Care testing , SPE-Note Normal . [facility] Comment on above: Result Comment: Prot ein electrophoresis scan will follow via computer, mail, or digital imaging specialist delivery. Performed at: - [facility] [id number] Hand Stapler: Elpidio Delgado PhD, Phone: [phone] Performed By: #### V BG #### Point of Care testing , Protein [Mass/volume] in Ser um or PlasmaOrdered By: Claire Choi on 01-17-2024 Protein [Mass/Vol] 6.6 g/dL Normal 6.4-8.9 [facility] Comment on above: Performed By: #### V BG #### Point of Care testing , Protein [Mass/Vol] 6.5 g/dL Normal 6.0-8.5 [facility] Comment on above: Performed By: #### V BG #### Point of Care testing , Serum globulin measurement ( mass/volume)Ordered By: Claire Choi on 01-17-2024 Globulin (S) [Mass/Vol] 3.1 g/dL Normal 2.2-3.9 [facility] Comment on above: Performed By: #### V BG #### Point of Care testing , Serum globulin measurement b y calculation (mass/volume)Ordered By: Claire Choi on 01-17-2024 Globulin (S) [Mass/Vol] 2.8 g/dL Normal [facility] Comment on above: Performed By: #### V BG #### Point of Care testing , Serum or plasma albumin/glob ulin mass ratioOrdered By: Claire Choi on 01-17-2024 Albumin/Globulin [Mass ratio] 1.4 {ratio} Normal [facility] Comment on above: Performed By: #### V BG #### Point of Care testing , Albumin/Globulin [Mass ratio] 1.1 {ratio} Normal 0.7-1.7 [facility] Comment on above: Performed By: #### V BG #### Point of Care testing , Serum or plasma alpha 1 glob ulin measurement by electrophoresis (mass/volume)Ordered By: Claire Choi on 01-17-2024 Alpha 1 globulin Elph [Mass/Vol] 0.1 g/dL 0.0-0.4 [facility] Serum or plasma alpha 2 glob ulin measurement by electrophoresis (mass/volume)Ordered By: Claire Choi on 01-17-2024 Alpha 2 globulin Elph [Mass/Vol] 0.8 g/dL 0.4-1.0 [facility] Serum or plasma anion gap de terminationOrdered By: Claire Choi on 01-17-2024 Anion gap [Moles/Vol] 10.6 mmol/L Normal 6.0-15.0 [facility] Comment on above: Performed By: #### V BG #### Point of Care testing , Serum or plasma beta globuli n measurement by electrophoresis (mass/volume)Ordered By: Claire Choi on 01-17-2024 Beta globulin Elph [Mass/Vol] 0.9 g/dL 0.7-1.3 [facility] Serum or plasma gamma globul in measurement by electrophoresis (mass/volume)Ordered By: Claire Choi on 01-17-2024 Gamma globulin Elph [Mass/Vol] 1.2 g/dL 0.4-1.8 [facility] Sodium [Moles/volume] in Ser um or PlasmaOrdered By: Claire Choi on 01-17-2024 Sodium [Moles/Vol] 138 mmol/L Normal 136-145 [facility] Comment on above: Performed By: #### V BG #### Point of Care testing , Urea nitrogen [Mass/volume] in Serum or PlasmaOrdered By: Claire Choi on 01-17-2024 Urea nitrogen [Mass/Vol] 41 mg/dL High 7-25 [facility] Comment on above: Performed By: #### V BG #### Point of Care testing , Ambulatory Visit Summaryon 0 01-09-2024 Ambulatory Visit Summary HAILEE TRIVEDI :1940 Visit Date:01/09/2024 Ambulatory Visit Instructions Your Diagnosis History of kidney stones Microhematuria Nocturia Tests Performed XR Abdomen 1 View -- Results Pending -- Please visit your patient portal for your results or contact your primary care physician. Your Care Team Attending Physician - XAVIER VELAZQUEZ, Tyree Rivers Primary Care Physician - AMBER VELAZQUEZ, CURT This Is Your Medications List citric acid-sodium [...] VELAZQUEZ, Tyree Rivers Where: [facility] Patient Educationon 01-09-20 Patient Education Nephrology Dietary Guidelines to Help [...] ? 8 oz (237 mL) of milk, yfrysfv-zykxglnnluuk-yzlc y milk, and calcium-fortifiedfruit juice. Calcium-fortified means that calcium has been [...] Spinach (cooked), rhubarb, beets, sweet potatoes, and [place] chard. ? Peanuts. ? Potato chips, persian fries, and baked potatoes with skin on. ? Nuts and nut products. ? Chocolate. ? If you regularly take a diuretic medicine, make sure to eat at least 1 or 2 servings of fruits or vegetables that are high in potassium each day. These include: ? Avocado. ? Banana. ? [place], prune, carrot, or tomato juice. ? Baked [...] fish oil, or vitamin B6. ? Take eugr-tte-cybwqvq and prescription medicines only as told by your health care provider. These include supplements. What foods sh (more content not included)... Normal [facility] Urology Office/Clinic Noteon 01-09-2024 Urology Office/Clinic Note Chief Complaint hx of kidney stones HPI Staff 1 year with [facility]. Dx: hx of kidney stone, microhematuria, nocturia, [...] liquid. New rx sent to [facility]. [facility] in 1 yr 2. Microhematuria (R31.29: Other [...] When Contact Information XAVIER VELAZQUEZ, Tyree Rivers, [facility] [address], [place] [phone] Additional Instructions: 1 yr w/ [facility] Patient Education Dietary Guidelines to Help Prevent [...] Rash) pr (more content not included)... Normal [facility] Comment on above: Result Comment: Elec tronically Signed By: Tyree PARK MD\.br\Date and Time Signed: 01/09/24 09:42 EST\.br\Electronically Co-Signed By: Tanya Schwartz\.br\Date and Time Co-Signed: 01/09/24 09:41 EST RAD - [facility] 01-06-2024 [place] - [facility] [id number] Normal [facility] Automated epithelial cells c ount in urine sediment (number/area)on 12-27-2023 Epithelial cells Auto (Urine sed) [#/Area] RARE #/LPF NONE/RARE [facility] Automated leukocytes count i n urine sediment (number/area)on 12-27-2023 WBC Auto (Urine sed) [#/Area] 0-2 #/HPF 0-2 [facility] Automated urine specific gra vity by refractometryon 12-27-2023 Specific gravity Refractometry automated (U) [Rel density] 1.010 1.005-1.02 5 [facility] Bilirubin Auto test strip (U ) [Mass/Vol]on 12-27-2023 Bilirubin (U) [Mass/Vol] Negative NEGATIVE [facility] Casts typing in urine sedime nt by light microscopyon 12-27-2023 Casts LM Nom (Urine sed) NONE SEEN #/LPF NONE S EEN [facility] Color Auto (U)on 12-27-2023 Color (U) LT. YELLOW YELLOW [facility] Erythrocyte distribution wid th Auto (RBC) [Ratio]on 12-27-2023 Erythrocyte distribution width (RBC) [Ratio] 12.5 % 11.0-15.0 [facility] Estimated glomerular filtrat ion rate (GFR) non- Americanon 12-27-2023 GFR/1.73 sq M.predicted among non-blacks MDRD (S/P/Bld) [Vol rate/Area] 18 mL/min/{1.73_m2} >=60 [facility] Hematocrit Auto (Bld) [Volum e fraction]on 12-27-2023 Hematocrit (Bld) [Volume fraction] 40.2 % 36.0-48.0 [facility] Hemoglobin [Mass/volume] in Bloodon 12-27-2023 Hemoglobin (Bld) [Mass/Vol] 12.9 g/dL 12.0-16.0 [facility] Ketones Auto test strip (U) [Mass/Vol]on 12-27-2023 Ketones (U) [Mass/Vol] Negative NEGATIVE [facility] Laboratory - Chemistry and C hemistry - challengeon 12-27-2023 Albumin [Mass/Vol] 3.2 g/dL 3.4-5.0 [facility] Calcium [Mass/Vol] 8.4 mg/dL 8.5-10.1 [facility] Chloride [Moles/Vol] 108 mmol/L 98-107 [facility] CO2 [Moles/Vol] 24.3 mmol/L 21.0-32.0 [facility] Creatinine [Mass/Vol] 2.57 mg/dL 0.55-1.02 [facility] GFR/1.73 sq M.predicted MDRD (S/P/Bld) [Vol rate/Area] 22 mL/min/{1.73_m2} >=60 [facility] Glucose [Mass/Vol] 88 mg/dL 74-106 [facility] Magnesium [Mass/Vol] 2.1 mg/dL 1.8-2.4 [facility] Potassium [Moles/Vol] 4.4 mmol/L 3.5-5.1 [facility] Sodium [Moles/Vol] 141 mmol/L 136-145 [facility] Urate [Mass/Vol] 5.9 mg/dL 2.6-6.0 [facility] Urea nitrogen [Mass/Vol] 32.0 mg/dL 7.0-18.0 [facility] Urea nitrogen/Creatinine [Mass ratio] 12.5 mg/mg [facility] Laboratory - Urinalysison Protein (U) [Mass/Vol] 27.1 mg/dL <=11.9 [facility] Leukocytes [#/volume] correc dominick for nucleated erythrocytes in Blood by Automated counon 12-27-2023 WBC corrected for nucl RBC Auto (Bld) [#/Vol] 8.3 10 3/uL 4.0-11.0 [facility] MCH Auto (RBC) [Entitic mass ]on 12-27-2023 MCH (RBC) [Entitic mass] 31.5 pg 26.7-34.0 [facility] MCHC Auto (RBC) [Mass/Vol]on 12-27-2023 MCHC (RBC) [Mass/Vol] 32.1 g/dL 29.9-35.2 [facility] MCV Auto (RBC) [Entitic vol] on 12-27-2023 MCV (RBC) [Entitic vol] 98.3 fL 81.0-99.0 [facility] Mucus LM Ql (Urine sed)on Mucus Ql (Urine sed) NONE SEEN NONE SEEN [facility] No Panel Informationon 12-27 25-Hydroxy Vitamin D Total 42.6 ng/mL [facility] Comment on above: <20 ng/mL Vit D defi cient20-<30 ng/mL Vit D tmwuxfqeirib65-455 ng/mL Vit D sufficient>100 ng/mL Potential Toxicity Parathyroid Hormone (Intact) 78 pg/mL 15-65 [facility] Comment on above: Performed at: - [address] [id number] Director: Elpidio Delgado PhD, Phone: [phone] Phosphorus Level 4.2 mg/dL 2.6-4.7 [facility] Urine Random Creatinine 59.98 mg/dL 20.0 0-300. 00 [facility] Platelet mean volume Auto (B ld) [Entitic vol]on 12-27-2023 Platelet mean volume (Bld) [Entitic vol] 11.3 fL 9.5-13.5 [facility] Platelets Auto (Bld) [#/Vol] on 12-27-2023 Platelets (Bld) [#/Vol] 195 10 3/uL 150-450 [facility] Protein Auto test strip (U) [Mass/Vol]on 12-27-2023 Protein (U) [Mass/Vol] Negative NEG/TRACE [facility] RBC Auto (Bld) [#/Vol]on RBC (Bld) [#/Vol] 4.09 10 6/uL 4.20-5.40 [facility] Serum or plasma anion gap de terminationon 12-27-2023 Anion gap [Moles/Vol] 13.1 mmol/L [facility] Specific gravity Auto test s trip (U) [Rel density]on 12-27-2023 Specific gravity (U) [Rel density] CLEAR CLEAR [facility] Urine bacteria detection by automated methodon 12-27-2023 Bacteria Auto Ql (U) TRACE #/HPF NONE SEEN [facility] Urine glucose measurement by test strip (mass/volume)on 12-27-2023 Glucose Test strip (U) [Mass/Vol] Negative NEGATIVE [facility] Urine hemoglobin detection b y automated test stripon 12-27-2023 Hemoglobin Auto test strip Ql (U) Negative NEGATIVE [facility] Urine nitrite detection by a utomated test stripon 12-27-2023 Nitrite Auto test strip Ql (U) Negative NEGATIVE [facility] Urine protein/creatinine rat ioon 12-27-2023 Protein/Creatinine (U) [Ratio] 0.45 [facility] Urine sediment crystal ident ification by light microscopyon 12-27-2023 Crystals LM Nom (Urine sed) None Seen #/HPF None Seen [facility] Urine sediment leukocyte cou nt by microscopy (number/high power field)on 12-27-2023 WBC LM.HPF (Urine sed) [#/Area] 0-2 #/HPF NONE SEEN [facility] Urobilinogen Auto test strip (U) [Mass/Vol]on 12-27-2023 Urobilinogen Qn (U) 0.2 {Marley'U}/dL 0.2-1.0 [facility] pH Auto test strip (U)on pH (U) 6.5 [pH] 5.0-9.0 [facility] US Heart TransthoracicOrdere d By: Russel Tolbert on 11-03-2023 Aortic Valve Area by Continuity of Peak Velocity 1.84 [facility] Work Phone: Aortic Valve Area by Continuity of VTI 1.69 [facility] Work Phone: AV mn grad 4.0 [facility] Work Phone: [phone] AV pk grad 8.8 [facility] Work Phone: AV pk nisha 1.48 [facility] Work Phone: LV A4C EF 65.5 [facility] Work Phone: [phone] LVIDd 4.10 [facility] Work Phone: [phone] LVOT diam 2.00 [facility] Work Phone: [phone] MV avg E/e' ratio 17.40 [facility] Work Phone: MV E/A ratio 1.11 [facility] Work Phone: RVSP 25.3 [facility] Work Phone: [facility] Work Phone: US Heart Transthoracicon [facility] [address], [address], [place] [address] TRANSTHORACIC ECHOCARDIOGRAM REPORT Patient Name: HAILEE TRIVEDI Reading Physician: [id number] Tolbert MD Study Date: 11/02/2023 Ordering Provider: [id number] ELICIA RHODES MRN/PID: [id number] Fellow: Nurse: Date of /Age: 6 1940 / 83 years Straight Cutter: Allyson Dobson RDCS, RVT Gender: F Additional Staff: Height: 167.64 cm Admit Date: Weight: 88.00 kg Admission Status: BSA: 1.97 m2 Department Location: 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 ÁNGELO Russel Tolbert MD - 11/03/[address], [address], [place] [address] TRANSTHORACIC ECHOCARDIOGRAM REPORT Patient Name: HAILEE TRIVEDI Reading Physician: [id number] Russel Tolbert MD Study Date: 11/02/2023 Ordering Provider: [id number] ELICIA RHODES MRN/PID: [id number] Fellow: Nurse: Date of /Age: 6 1940 / 83 years Straight Cutter: Allyson Dobson [facility], T Gender: F Additional Staff: Height: 167.64 cm Admit Date: Weight: 88.00 kg Admission Status: BSA: 1.97 m2 Department Location: [facility] Blood Pressure: 140 /74 mmHg Study Type: TRANSTHORACIC ECHO (TTE) COMPLETE Diagnosis/ICD: Nonrheumatic aortic (valve) insufficiency-I35.1; 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; Pulmonary hypertension, unspecified-I27.20 Indication: Atrial Fibrillation, HTN, Hyperlipidemia, 2/6 Diastolic Murmur, CKD-Stage III-IV, Multiple Myeloma-in Remission, Cerebellar Infarct, Obesity CPT Codes: Echo Complete w Full [id number] Study Detail: The following Echo studies were [...] mmHg PIEDV: 2.22 m/s PADP: 22.7 mmHg [id number] Russel Tolbert MD Electronically signed on 11/03/2023 at 11:22:05 AM Final [facility] Work Phone: TRANSTHORACIC ECHO (TTE) [facility] 11-02-2023 TRANSTHORACIC ECHO (TTE) [address], [address] [address] TRANSTHORACIC ECHOCARDIOGRAM REPORT Patient Name: HAILEE TRIVEDI Reading Physician: [id number] Russel Tolbert MD Study Date: 11/02/2023 Ordering Provider: [id number] ELICIA RHODES MRN/PID: [id number] Fellow: Nurse: Date of /Age: 6 1940 / 83 years Straight Cutter: Allyson Dobson RDCS, RVT Gender: F Additional Staff: Height: 167.64 cm Admit Date: Weight: 88.00 kg Admission Status: BSA: 1.97 m2 Department Location: [facility] Blood Pressure: 140 /74 mmHg Study Type: TRANSTHORACIC ECHO (TTE) COMPLETE Diagnosis/ICD: Nonrheumatic aortic (valve) insufficiency-I35.1; 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; Pulmonary hypertension, unspecified-I27.20 Indication: Atrial Fibrillation, HTN, Hyperlipidemia, 2/6 Diastolic Murmur, CKD-Stage III-IV, Multiple Myeloma-in Remission, Cerebellar Infarct, Obesity CPT Codes: Echo Complete w Full Doppler-[id number] Study Detail: The following Echo studies were [...] mmHg PIEDV: 2.22 m/s PADP: 22.7 mmHg [id number] Russel Tolbert MD Electronically signed on 11/03/2023 at 11:22:05 AM Final Normal [facility] Alanine aminotransferase [En zymatic activity/volume] in Serum or PlasmaOrdered By: Claire Choi on 10-18-2023 ALT [Catalytic activity/Vol] 9 U/L Normal 7-52 [facility] Comment on above: Performed By: #### V BG #### Point of Care testing , Albumin [Mass/volume] in Ser um or PlasmaOrdered By: Claire Choi on 10-18-2023 Albumin [Mass/Vol] 3.6 g/dL Normal 2.9-4.4 [facility] Comment on above: Performed By: #### V BG #### Point of Care testing , Albumin [Mass/volume] in Ser um or Plasma by Bromocresol green (BCG) dye binding methoOrdered By: Claire Choi on 10-18-2023 Albumin BCG dye [Mass/Vol] 3.8 g/dL 3.5-5.7 [facility] Alkaline phosphatase [Enzyma tic activity/volume] in Serum or PlasmaOrdered By: Claire Choi on 10-18-2023 ALP [Catalytic activity/Vol] 94 U/L Normal 34-104 [facility] Comment on above: Performed By: #### V BG #### Point of Care testing , Aspartate aminotransferase [ Enzymatic activity/volume] in Serum or PlasmaOrdered By: Claire Choi on 10-18-2023 AST [Catalytic activity/Vol] 14 U/L Normal 13-39 [facility] Comment on above: Performed By: #### V BG #### Point of Care testing , Automated basophil %Ordered By: Claire Choi on 10-18-2023 Basophils/100 WBC (Bld) 1.2 % Normal . [facility] Comment on above: Performed By: #### V BG #### Point of Care testing , Automated basophil countOrde red By: Claire Choi on 10-18-2023 Basophils (Bld) [#/Vol] 0.1 10*3/uL Normal 0.0-0.2 [facility] Comment on above: Result Comment: PERF ORMED BY: [facility] [address] [place] [address] PATHOLOGIST ACCOUNTING INSTRUCTOR LUIS DEE M.D. Performed By: #### V BG #### Point of Care testing , Automated blood monocyte cou ntOrdered By: Claire Choi on 10-18-2023 Monocytes (Bld) [#/Vol] 0.6 10*3/uL Normal 0.0-0.8 [facility] Comment on above: Performed By: #### V BG #### Point of Care testing , Automated eosinophil %Ordere d By: Claire Choi on 10-18-2023 Eosinophils/100 WBC (Bld) 1.1 % Normal . [facility] Comment on above: Performed By: #### V BG #### Point of Care testing , Automated eosinophil countOr dered By: Claire Choi on 10-18-2023 Eosinophils (Bld) [#/Vol] 0.1 10*3/uL Normal 0.0-0.45 [facility] Comment on above: Performed By: #### V BG #### Point of Care testing , Automated monocyte %Ordered By: Claire Choi on 10-18-2023 Monocytes/100 WBC (Bld) 7.6 % Normal . [facility] Comment on above: Performed By: #### V BG #### Point of Care testing , Automated neutrophil %Ordere d By: Claire Choi on 10-18-2023 Neutrophils/100 WBC (Bld) 59.9 % Normal . [facility] Comment on above: Performed By: #### V BG #### Point of Care testing , Bilirubin.total [Mass/volume ] in Serum or PlasmaOrdered By: Claire Choi on 10-18-2023 Bilirubin [Mass/Vol] 0.4 mg/dL Normal 0.3-1.0 [facility] Comment on above: Performed By: #### V BG #### Point of Care testing , Calcium [Mass/volume] in Ser um or PlasmaOrdered By: Claire Choi on 10-18-2023 Calcium [Mass/Vol] 8.7 mg/dL Normal 8.6-10.3 [facility] Comment on above: Performed By: #### V BG #### Point of Care testing , Carbon dioxide, total [Moles /volume] in Serum or PlasmaOrdered By: Claire Choi on 10-18-2023 CO2 [Moles/Vol] 24.2 mmol/L Normal 21.0-31.0 [facility] Comment on above: Performed By: #### V BG #### Point of Care testing , Chloride [Moles/volume] in S amanda or PlasmaOrdered By: Claire Choi on 10-18-2023 Chloride [Moles/Vol] 108 mmol/L High 98-107 [facility] Comment on above: Performed By: #### V BG #### Point of Care testing , Complete Blood Count Auto Di ffon 10-18-2023 Mean Corpuscular HGB Conc 32.8 g/dL Normal 32.0-35.0 [facility] Comment on above: Performed By: #### V BG #### Point of Care testing , NRBC% 0.1 /100{WBC} Normal 0-0.5 [facility] Comment on above: Performed By: #### V BG #### Point of Care testing , Comprehensive Metabolic Pane natalia 10-18-2023 Albumin [Mass/Vol] 3.8 g/dL Normal 3.5-5.7 [facility] Comment on above: Performed By: #### V BG #### Point of Care testing , Creatinine Clr Calc Pharmacy 20.65 Normal [facility] Comment on above: Result Comment: PERF ORMED BY: [facility] [address] [place] [address] PATHOLOGIST ACCOUNTING INSTRUCTOR LUIS DEE M.D. Performed By: #### V BG #### Point of Care testing , GFR/1.73 sq M.predicted MDRD (S/P/Bld) [Vol rate/Area] 20.198 mL/min/{1.73_m2} Normal [facility] Comment on above: Performed By: #### V BG #### Point of Care testing , Creatinine [Mass/volume] in Serum or PlasmaOrdered By: Claire Choi on 10-18-2023 Creatinine [Mass/Vol] 2.36 mg/dL High 0.60-1.20 [facility] Comment on above: Performed By: #### V BG #### Point of Care testing , Erythrocyte distribution wid th [Ratio] by Automated countOrdered By: Claire Choi on 10-18-2023 Erythrocyte distribution width (RBC) [Ratio] 14.6 % Normal 11.9-15.3 [facility] Comment on above: Performed By: #### V BG #### Point of Care testing , Erythrocytes [#/volume] in B lood by Automated countOrdered By: Claire Choi on 10-18-2023 RBC (Bld) [#/Vol] 3.72 10*6/uL Normal 3.60-5.00 [facility] Comment on above: Performed By: #### V BG #### Point of Care testing , Free K+L LT Chains, Qn, Son 10-18-2023 Free Marceline Light Chains, S 39.7 mg/L High 3.3-19.4 [facility] Comment on above: Performed By: #### V BG #### Point of Care testing , Free Lambda Light Chains, S 23.4 mg/L Normal 5.7-26.3 [facility] Comment on above: Performed By: #### V BG #### Point of Care testing , Marceline/Lambda Ratio, S 1.70 High 0.26-1.65 [facility] Comment on above: Result Comment: Perf ormed at: CB - [facility] [address] [id number] Hand Stapler: Elpidio Delgado PhD, Phone: [phone] PERFORMED BY: [address] [place] [address] PATHOLOGIST ACCOUNTING INSTRUCTOR LUIS DEE M.D. Performed By: #### V BG #### Point of Care testing , Glucose [Mass/volume] in Ser um or PlasmaOrdered By: Claire Choi on 10-18-2023 Glucose [Mass/Vol] 176 mg/dL High 70-100 [facility] Comment on above: ADA recommended refe rence rangeRandom Glucose Reference Range is dependent on time and content of last meal. Glucose of more than 200 mg/dL in a nonstressed, ambulatory subject supports the diagnosis of Diabetes Mellitus. Result Comment: [place] om Glucose Reference Range is dependent on time and content of last meal. Glucose of more than 200 mg/dL in a nonstressed, ambulatory subject supports the diagnosis of Diabetes Mellitus. ADA recommended reference range Performed By: #### V BG #### Point of Care testing , Hematocrit [Volume Fraction] of Blood by Automated countOrdered By: Claire Choi on 10-18-2023 Hematocrit (Bld) [Volume fraction] 36.0 % Normal 34.0-46.4 [facility] Comment on above: Performed By: #### V BG #### Point of Care testing , Hemoglobin [Mass/volume] in BloodOrdered By: Claire Choi on 10-18-2023 Hemoglobin (Bld) [Mass/Vol] 11.8 g/dL Normal 11.8-15.4 [facility] Comment on above: Performed By: #### V BG #### Point of Care testing , IgA [Mass/volume] in Serum o r PlasmaOrdered By: Claire Choi on 10-18-2023 IgA [Mass/Vol] 162 mg/dL 64-422 [facility] IgG [Mass/volume] in Serum o r PlasmaOrdered By: Claire Choi on 10-18-2023 IgG [Mass/Vol] 708 mg/dL [phone] [facility] IgM [Mass/volume] in Serum o r PlasmaOrdered By: Claire Choi on 10-18-2023 IgM [Mass/Vol] 117 mg/dL 26-217 [facility] Comment on above: Performed at: [employer] [facility] [place] [id number] Director: Elpidio Delgado PhD, Phone: [phone] Immunofixation,Serumon 10-18 Immunofixation, Serum Normal . [facility] Comment on above: Result Comment: No m onoclonality detected. Performed By: #### V BG #### Point of Care testing , Immunoglobulin A, Serum 162 mg/dL Normal 64-422 [facility] Comment on above: Performed By: #### V BG #### Point of Care testing , Immunoglobulin G 708 mg/dL Normal 586-[address] [facility] Comment on above: Performed By: #### V BG #### Point of Care testing , Immunoglobulin M, Serum 117 mg/dL Normal 26-217 [facility] Comment on above: Result Comment: Perf ormed at: [facility] [facility] [place] [id number] Hand Stapler: Elpidio Delgado PhD, Phone: [phone] Performed By: #### V BG #### Point of Care testing , Immunoglobulin light chains. kappa.free [Mass/volume] in SerumOrdered By: Claire Choi on 10-18-2023 Immunoglobulin light chains.kappa.free (S) [Mass/Vol] 39.7 mg/L 3.3-19.4 [facility] Immunoglobulin light chains. kappa.free/Immunoglobulin light chains.lambda.free [MassOrdered By: Claire Choi on 10-18-2023 Immunoglobulin light chains.kappa.free/Immuno globulin light chains.lambda.free (S) [Mass ratio] 1.70 0.26-1.65 [facility] Comment on above: Performed at: [address] [id number] Director: Elpidio Delgado PhD, Phone: [phone] Immunoglobulin light chains. lambda.free [Mass/volume] in Serum or PlasmaOrdered By: Claire Choi on 10-18-2023 Immunoglobulin light chains.lambda.free [Mass/Vol] 23.4 mg/L 5.7-26.3 [facility] Leukocytes [#/volume] correc dominick for nucleated erythrocytes in Blood by Automated counOrdered By: Claire Choi on 10-18-2023 WBC corrected for nucl RBC Auto (Bld) [#/Vol] 8.2 10*3/uL 3.8-11.6 [facility] Leukocytes [#/volume] in Blo od by Automated countOrdered By: Claire Choi on 10-18-2023 WBC (Bld) [#/Vol] 8.2 10*3/uL Normal 3.8-11.6 [facility] Comment on above: Performed By: #### V BG #### Point of Care testing , Lymphocytes [#/volume] in Bl ood by Automated countOrdered By: Claire Choi on 10-18-2023 Lymphocytes (Bld) [#/Vol] 2.5 10*3/uL Normal 1.00-4.8 [facility] Comment on above: Performed By: #### V BG #### Point of Care testing , Lymphocytes/100 leukocytes i n Blood by Automated countOrdered By: Claire Choi on 10-18-2023 Lymphocytes/100 WBC (Bld) 30.2 % Normal . [facility] Comment on above: Performed By: #### V BG #### Point of Care testing , MCH [Entitic mass] by Automa dominick countOrdered By: Claire Choi on 10-18-2023 MCH (RBC) [Entitic mass] 31.8 pg Normal 24.7-34.3 [facility] Comment on above: Performed By: #### V BG #### Point of Care testing , MCHC Auto (RBC) [Mass/Vol]Or dered By: Claire Choi on 10-18-2023 MCHC (RBC) [Mass/Vol] 32.8 g/dL 32.0-35.0 [facility] MCV [Entitic volume] by Auto mated countOrdered By: Claire Choi on 10-18-2023 MCV (RBC) [Entitic vol] 96.9 fL Normal 80-100 [facility] Comment on above: Performed By: #### V BG #### Point of Care testing , Neutrophils [#/volume] in Bl ood by Automated countOrdered By: Claire Choi on 10-18-2023 Neutrophils (Bld) [#/Vol] 4.9 10*3/uL Normal 1.8-7.7 [facility] Comment on above: Performed By: #### V BG #### Point of Care testing , No Panel InformationOrdered By: Claire Choi on 10-18-2023 Estimated GFR (CKD-EPI) 20.198 mL/Min [facility] Creatinine Clearance (Chem 20.65 [facility] Protein Electrophoresis M-Krystian Not observed g/dL Not Observed [facility] Protein Electrophoresis Note See comment . [facility] Comment on above: Protein electrophore sis scan will follow via computer,mail, or digital imaging specialist delivery. Serum Immunofixation See comment . [facility] Comment on above: No monoclonality det ected. Nucleated erythrocytes [Pres ence] in Blood by Automated countOrdered By: Claire Choi on 10-18-2023 Nucleated RBC Auto Ql (Bld) 0.1 /100{WBC} 0-0.5 [facility] Platelet mean volume [Entiti c volume] in Blood by Automated countOrdered By: Claire Choi on 10-18-2023 Platelet mean volume (Bld) [Entitic vol] 9.8 fL Normal 6.3-10.7 [facility] Comment on above: Performed By: #### V BG #### Point of Care testing , Platelets [#/volume] in Bloo d by Automated countOrdered By: Claire Choi on 10-18-2023 Platelets (Bld) [#/Vol] 199 10*3/uL Normal 150-450 [facility] Comment on above: Performed By: #### V BG #### Point of Care testing , Potassium [Moles/volume] in Serum or PlasmaOrdered By: Claire Choi on 10-18-2023 Potassium [Moles/Vol] 4.9 mmol/L Normal 3.5-5.1 [facility] Comment on above: Performed By: #### V BG #### Point of Care testing , Protein Electrophoresis, Ser umon 10-18-2023 Cgztl-4-Uyyetkhf 0.2 g/dL Normal 0.0-0.4 [facility] Comment on above: Performed By: #### V BG #### Point of Care testing , Fezui-2-Capswbbi 0.9 g/dL Normal 0.4-1.0 [facility] Comment on above: Performed By: #### V BG #### Point of Care testing , Beta Globulin 0.9 g/dL Normal 0.7-1.3 [facility] Comment on above: Performed By: #### V BG #### Point of Care testing , Gamma Globulin 0.8 g/dL Normal 0.4-1.8 [facility] Comment on above: Performed By: #### V BG #### Point of Care testing , M-Krystian Not Observed Normal Not Observed [facility] Comment on above: Performed By: #### V BG #### Point of Care testing , SPE-Note Normal . [facility] Comment on above: Result Comment: Prot ein electrophoresis scan will follow via computer, mail, or digital imaging specialist delivery. Performed By: #### V BG #### Point of Care testing , Protein [Mass/volume] in Ser um or PlasmaOrdered By: Claire Choi on 10-18-2023 Protein [Mass/Vol] 6.3 g/dL Low 6.4-8.9 [facility] Comment on above: Performed By: #### V BG #### Point of Care testing , Protein [Mass/Vol] 6.4 g/dL Normal 6.0-8.5 [facility] Comment on above: Performed By: #### V BG #### Point of Care testing , Serum globulin measurement ( mass/volume)Ordered By: Claire Choi on 10-18-2023 Globulin (S) [Mass/Vol] 2.8 g/dL Normal 2.2-3.9 [facility] Comment on above: Performed By: #### V BG #### Point of Care testing , Serum globulin measurement b y calculation (mass/volume)Ordered By: Claire Choi on 10-18-2023 Globulin (S) [Mass/Vol] 2.5 g/dL Normal [facility] Comment on above: Performed By: #### V BG #### Point of Care testing , Serum or plasma albumin/glob ulin mass ratioOrdered By: Claire Choi on 10-18-2023 Albumin/Globulin [Mass ratio] 1.5 {ratio} Normal [facility] Comment on above: Performed By: #### V BG #### Point of Care testing , Albumin/Globulin [Mass ratio] 1.3 {ratio} Normal 0.7-1.7 [facility] Comment on above: Performed By: #### V BG #### Point of Care testing , Serum or plasma alpha 1 glob ulin measurement by electrophoresis (mass/volume)Ordered By: Claire Choi on 10-18-2023 Alpha 1 globulin Elph [Mass/Vol] 0.2 g/dL 0.0-0.4 [facility] Serum or plasma alpha 2 glob ulin measurement by electrophoresis (mass/volume)Ordered By: Claire Choi on 10-18-2023 Alpha 2 globulin Elph [Mass/Vol] 0.9 g/dL 0.4-1.0 [facility] Serum or plasma anion gap de terminationOrdered By: Claire Choi on 10-18-2023 Anion gap [Moles/Vol] 10.7 mmol/L Normal 6.0-15.0 [facility] Comment on above: Performed By: #### V BG #### Point of Care testing , Serum or plasma beta globuli n measurement by electrophoresis (mass/volume)Ordered By: Claire Choi on 10-18-2023 Beta globulin Elph [Mass/Vol] 0.9 g/dL 0.7-1.3 [facility] Serum or plasma gamma globul in measurement by electrophoresis (mass/volume)Ordered By: Claire Choi on 10-18-2023 Gamma globulin Elph [Mass/Vol] 0.8 g/dL 0.4-1.8 [facility] Sodium [Moles/volume] in Ser um or PlasmaOrdered By: Claire Choi on 10-18-2023 Sodium [Moles/Vol] 138 mmol/L Normal 136-145 [facility] Comment on above: Performed By: #### V BG #### Point of Care testing , Urea nitrogen [Mass/volume] in Serum or PlasmaOrdered By: Claire Choi on 10-18-2023 Urea nitrogen [Mass/Vol] 35 mg/dL High 7-25 [facility] Comment on above: Performed By: #### V BG #### Point of Care testing , ECG 12 Leadon 10-04-2023 Normal sinus rhythm [facility] Work Phone: Automated erythrocytes count in urine sediment (number/area)Ordered By: Claire Choi on 07-19-2023 RBC Auto (Urine sed) [#/Area] 0-1 [HPF] 0-4 [facility] Automated leukocytes count i n urine sediment (number/area)Ordered By: Claire Choi on 07-19-2023 WBC Auto (Urine sed) [#/Area] 0-1 [HPF] 0-4 [facility] Bilirubin Test strip Ql (U)O rdered By: Claire Choi on 07-19-2023 Bilirubin Ql (U) Negative Negative [facility] Color Auto (U)Ordered By: Reynaldo Choi on 07-19-2023 Color (U) Yellow Yellow [facility] Ketones Auto test strip (U) [Mass/Vol]Ordered By: Claire Choi on 07-19-2023 Ketones (U) [Mass/Vol] Negative Negative Fi [facility] - UrinalysisOrder ed By: Claire Choi on 07-19-2023 Hyaline casts LM Ql (Urine sed) None seen [LPF] 0-8 [facility] Nitrite Test strip Ql (U)Ord ered By: Claire Choi on 07-19-2023 Nitrite Ql (U) Negative Negative [facility] Protein Auto test strip (U) [Mass/Vol]Ordered By: Claire Choi on 07-19-2023 Protein (U) [Mass/Vol] 100 mg/dL High Negative [facility] Specific gravity Auto test s trip (U) [Rel density]Ordered By: Claire Choi on 07-19-2023 Specific gravity (U) [Rel density] 1.018 1.001-1.03 0 [facility] Squamous epithelial cells de tection in urine sediment by light microscopyOrdered By: Claire Choi on 07-19-2023 Epithelial cells.squamous LM Ql (Urine sed) 0-1 [HPF] 0-2 [facility] Urine bacteria detection by automated methodOrdered By: Claire Choi on 07-19-2023 Bacteria Auto Ql (U) None seen None Seen [facility] Urine clarity by refractomet ry automatedOrdered By: Claire Choi on 07-19-2023 Clarity Refractometry automated (U) Clear Clear [facility] Urine glucose measurement by automated test strip (mass/volume)Ordered By: Claire Choi on 07-19-2023 Glucose Auto test strip (U) [Mass/Vol] Normal mg/dL Normal [facility] Urine hemoglobin detection b y automated test stripOrdered By: Claire Choi on 07-19-2023 Hemoglobin Auto test strip Ql (U) Negative Negative [facility] Urine leukocyte esterase det ection by automated test stripOrdered By: Claire Choi on 07-19-2023 Leukocyte esterase Auto test strip Ql (U) Negative Negative [facility] Urobilinogen Auto test strip (U) [Mass/Vol]Ordered By: Claire Choi on 07-19-2023 Urobilinogen (U) [Mass/Vol] Normal mg/dL Normal [facility] pH Auto test strip (U)Ordere d By: Claire Choi on 07-19-2023 pH (U) 6.0 [pH] 5.0-9.0 [facility] Alanine aminotransferase [En zymatic activity/volume] in Serum or PlasmaOrdered By: Misti Connolly on 07-12-2023 ALT [Catalytic activity/Vol] 12 U/L 7-52 [facility] Albumin [Mass/volume] in Ser um or PlasmaOrdered By: Misti Connolly on 07-12-2023 Albumin [Mass/Vol] 3.5 g/dL 2.9-4.4 [facility] Albumin [Mass/volume] in Ser um or Plasma by Bromocresol green (BCG) dye binding methoOrdered By: Misti Connolly on 07-12-2023 Albumin BCG dye [Mass/Vol] 3.6 g/dL 3.5-5.7 [facility] Alkaline phosphatase [Enzyma tic activity/volume] in Serum or PlasmaOrdered By: Misti Connolly on 07-12-2023 ALP [Catalytic activity/Vol] 83 U/L 34-104 [facility] Aspartate aminotransferase [ Enzymatic activity/volume] in Serum or PlasmaOrdered By: Misti Connolly on 07-12-2023 AST [Catalytic activity/Vol] 14 U/L 13-39 [facility] Basophils Auto (Bld) [#/Vol] Ordered By: Misti Connolly on 07-12-2023 Basophils (Bld) [#/Vol] 0.0 10*3/uL 0.0-0.2 [facility] Basophils/100 WBC Auto (Bld) Ordered By: Misti Connolly on 07-12-2023 Basophils/100 WBC (Bld) 0.4 % . [facility] Bilirubin.total [Mass/volume ] in Serum or PlasmaOrdered By: Misti Connolly on 07-12-2023 Bilirubin [Mass/Vol] 0.4 mg/dL 0.3-1.0 [facility] Calcium [Mass/volume] in Ser um or PlasmaOrdered By: Misti Connolly on 08-29-2023 Calcium [Mass/Vol] 8.5 mg/dL 8.6-10.3 [facility] Carbon dioxide, total [Moles /volume] in Serum or PlasmaOrdered By: Misti Connolly on 07-12-2023 CO2 [Moles/Vol] 22.7 mmol/L 21.0-31.0 [facility] Chloride [Moles/volume] in S amanda or PlasmaOrdered By: Misti Connolly on 07-12-2023 Chloride [Moles/Vol] 111 mmol/L 98-107 [facility] Creatinine [Mass/volume] in Serum or PlasmaOrdered By: Misti Connolly on 07-12-2023 Creatinine [Mass/Vol] 2.50 mg/dL 0.60-1.20 [facility] Eosinophils Auto (Bld) [#/Vo l]Ordered By: Misti Connolly on 07-12-2023 Eosinophils (Bld) [#/Vol] 0.1 10*3/uL 0.0-0.45 [facility] Eosinophils/100 WBC Auto (Bl d)Ordered By: Misti Connolly on 07-12-2023 Eosinophils/100 WBC (Bld) 1.1 % . [facility] Erythrocyte distribution wid th Auto (RBC) [Ratio]Ordered By: Misti Connolly on 07-12-2023 Erythrocyte distribution width (RBC) [Ratio] 13.8 % 11.9-15.3 [facility] Glucose [Mass/volume] in Ser um or PlasmaOrdered By: Misti Connolly on 07-12-2023 Glucose [Mass/Vol] 119 mg/dL 70-100 [facility] Comment on above: ADA recommended refe rence range Glucose mean value [Mass/vol ume] in Blood Estimated from glycated hemoglobinOrdered By: Misti Connolly on 07-12-2023 Average glucose Estimated from glycated hemoglobin (Bld) [Mass/Vol] 174 mg/dL [facility] Hematocrit Auto (Bld) [Volum e fraction]Ordered By: Misti Connolly on 07-12-2023 Hematocrit (Bld) [Volume fraction] 36.0 % 34.0-46.4 [facility] Hemoglobin [Mass/volume] in BloodOrdered By: Misti Connolly on 07-12-2023 Hemoglobin (Bld) [Mass/Vol] 12.0 g/dL 11.8-15.4 [facility] Immunoglobulin light chains. kappa.free [Mass/volume] in SerumOrdered By: Misti Connolly on 07-12-2023 Immunoglobulin light chains.kappa.free (S) [Mass/Vol] 40.5 mg/L 3.3-19.4 [facility] Immunoglobulin light chains. kappa.free/Immunoglobulin light chains.lambda.free [MassOrdered By: Misti Connolly on 07-12-2023 Immunoglobulin light chains.kappa.free/Immuno globulin light chains.lambda.free (S) [Mass ratio] 1.75 0.26-1.65 [facility] Comment on above: Performed at: [address] [id number] Director: Elpidio Delgado PhD, Phone: [phone] Immunoglobulin light chains. lambda.free [Mass/volume] in Serum or PlasmaOrdered By: Misti Connolly on 07-12-2023 Immunoglobulin light chains.lambda.free [Mass/Vol] 23.2 mg/L 5.7-26.3 [facility] Laboratory - Hematology and Cell countsOrdered By: Misti Connolly on 07-12-2023 HbA1c (Bld) [Mass fraction] 7.7 % High 4.3-5.6 [facility] Comment on above: Increased risk for d iabetes: 5.7 - 6.4diabetes: >6.4glycemic control for adults with diabetes: <7.0 Leukocytes [#/volume] correc dominick for nucleated erythrocytes in Blood by Automated counOrdered By: Misti Connolly on 07-12-2023 WBC corrected for nucl RBC Auto (Bld) [#/Vol] 7.3 10*3/uL 3.8-11.6 [facility] Lymphocytes Auto (Bld) [#/Vo l]Ordered By: Misti Connolly on 07-12-2023 Lymphocytes (Bld) [#/Vol] 2.4 10*3/uL 1.00-4.8 [facility] Lymphocytes/100 WBC Auto (Bl d)Ordered By: Misti Connolly on 07-12-2023 Lymphocytes/100 WBC (Bld) 33.7 % . [facility] MCH Auto (RBC) [Entitic mass ]Ordered By: Misti Connolly on 07-12-2023 MCH (RBC) [Entitic mass] 31.5 pg 24.7-34.3 [facility] MCHC Auto (RBC) [Mass/Vol]Or dered By: Misti Connolly on 07-12-2023 MCHC (RBC) [Mass/Vol] 33.2 g/dL 32.0-35.0 [facility] MCV Auto (RBC) [Entitic vol] Ordered By: Misti Connolly on 07-12-2023 MCV (RBC) [Entitic vol] 95.0 fL 80-100 [facility] Monocytes Auto (Bld) [#/Vol] Ordered By: Misti Connolly on 07-12-2023 Monocytes (Bld) [#/Vol] 0.5 10*3/uL 0.0-0.8 [facility] Monocytes/100 WBC Auto (Bld) Ordered By: Misti Connolly on 07-12-2023 Monocytes/100 WBC (Bld) 6.2 % . [facility] Neutrophils Auto (Bld) [#/Vo l]Ordered By: Misti Connolly on 07-12-2023 Neutrophils (Bld) [#/Vol] 4.3 10*3/uL 1.8-7.7 [facility] Neutrophils/100 WBC Auto (Bl d)Ordered By: Misti Connolly on 07-12-2023 Neutrophils/100 WBC (Bld) 58.6 % . [facility] No Panel InformationOrdered By: Misti Connolly on 07-12-2023 Estimated GFR (CKD-EPI) 18.848 mL/Min [facility] Creatinine Clearance (Chem 19.74 [facility] Protein Electrophoresis M-Krystian Not observed g/dL Not Observed [facility] Protein Electrophoresis Note See comment . [facility] Comment on above: Protein electrophore sis scan will follow via computer,mail, or digital imaging specialist delivery.Performed at: [address] [id number] Director: Elpidio Delgado PhD, Phone: [phone] Nucleated erythrocytes [Pres ence] in Blood by Automated countOrdered By: Misti Connolly on 07-12-2023 Nucleated RBC Auto Ql (Bld) 0.1 /100{WBC} 0-0.5 [facility] Platelet mean volume Auto (B ld) [Entitic vol]Ordered By: Misti Connolly on 07-12-2023 Platelet mean volume (Bld) [Entitic vol] 9.5 fL 6.3-10.7 [facility] Platelets Auto (Bld) [#/Vol] Ordered By: Misti Connolly on 07-12-2023 Platelets (Bld) [#/Vol] 198 10*3/uL 150-450 [facility] Potassium [Moles/volume] in Serum or PlasmaOrdered By: Misti Connolly on 07-12-2023 Potassium [Moles/Vol] 4.5 mmol/L 3.5-5.1 [facility] Protein [Mass/volume] in Ser um or PlasmaOrdered By: Misti Connolly on 07-12-2023 Protein [Mass/Vol] 6.3 g/dL 6.4-8.9 [facility] Protein [Mass/Vol] 6.2 g/dL 6.0-8.5 [facility] RBC Auto (Bld) [#/Vol]Ordere d By: Misti Connolly on 07-12-2023 RBC (Bld) [#/Vol] 3.79 10*6/uL 3.60-5.00 [facility] Serum globulin measurement b y calculation (mass/volume)Ordered By: Misti Connolly on 07-12-2023 Globulin (S) [Mass/Vol] 2.7 g/dL 2.2-3.9 [facility] Serum or plasma albumin/glob ulin mass ratioOrdered By: Misti Connolly on 07-12-2023 Albumin/Globulin [Mass ratio] 1.3 {ratio} 0.7-1.7 [facility] Serum or plasma alpha 1 glob ulin measurement by electrophoresis (mass/volume)Ordered By: Misti Connolly on 07-12-2023 Alpha 1 globulin Elph [Mass/Vol] 0.1 g/dL 0.0-0.4 [facility] Serum or plasma alpha 2 glob ulin measurement by electrophoresis (mass/volume)Ordered By: Misti Connolly on 07-12-2023 Alpha 2 globulin Elph [Mass/Vol] 1.0 g/dL 0.4-1.0 [facility] Serum or plasma anion gap de terminationOrdered By: Misti Connolly on 07-12-2023 Anion gap [Moles/Vol] 10.8 mmol/L 6.0-15.0 [facility] Serum or plasma beta globuli n measurement by electrophoresis (mass/volume)Ordered By: Misti Connolly on 07-12-2023 Beta globulin Elph [Mass/Vol] 0.9 g/dL 0.7-1.3 [facility] Serum or plasma gamma globul in measurement by electrophoresis (mass/volume)Ordered By: Misti Connolly on 07-12-2023 Gamma globulin Elph [Mass/Vol] 0.6 g/dL 0.4-1.8 [facility] Sodium [Moles/volume] in Ser um or PlasmaOrdered By: Misti Connolly on 07-12-2023 Sodium [Moles/Vol] 140 mmol/L 136-145 [facility] Urea nitrogen [Mass/volume] in Serum or PlasmaOrdered By: Misti Connolly on 07-12-2023 Urea nitrogen [Mass/Vol] 33 mg/dL 7-25 [facility] WBC Auto (Bld) [#/Vol]Ordere d By: Misti Connolly on 07-12-2023 WBC (Bld) [#/Vol] 7.3 10*3/uL 3.8-11.6 [facility] Office Visit (Cardiology)on 03-23-2023 Follow-up visit Diagnoses/Problems [...] Weight Tips; Status:Complete - Retrospective Authorization; Done: [id number] Some eating tips that can help you lose weight.; Status:Complete - Retrospective Authorization; Done: [id number] SocHx: Never a smoker Tobacco Use Screening; Status:Complete; Done: [id number] Patient Instructions Please bring all medicines, vitamins, [...] recurrence. She did have noninvasive assessment at [facility], which was negative. Couple of years ago. [...] Vitals Vital (more content not included)... Normal [facility] Tobacco Screening.on 023 Adult depression screening assessment No [facility] [employer] 250 DO Work Phone: Fall risk assessment a) No falls within the last year [facility] [employer] 250 DO Work Phone: Tobacco use status [facility] b) No [facility] [employer] 250 DO Work Phone: Operative Reporton 3 Operative Report [id number]:12 7 Normal [facility] LIPID PROFILEon 02-21-2023 CHOL-HDL RATIO NORM SEE BELOW Normal [facility] Comment on above: Result Comment: 3.3 - 4.4 LOW RISK 4.4 - 7.1 AVERAGE RISK 7.1 - 11.0 MODERATE RISK >11.0 HIGH RISK Performed By: #### H H #### [facility] [address] [address] [address] Richa Cheema Cholesterol [Mass/Vol] 173 mg/dL Normal <=200 [facility] Comment on above: Performed By: #### H H #### [facility] [address] [address] [address] Richa Cheema Cholesterol in HDL [Mass/Vol] 63 mg/dL Critically high 40-60 [facility] Comment on above: Performed By: #### H H #### [facility] [address] [address] [address] Richa Cheema Cholesterol in LDL [Mass/Vol] 75.6 mg/dL Normal [facility] Comment on above: Performed By: #### H H #### [facility] [address] [address] [address] Richa Cheema Cholesterol.total/Choles terol in HDL [Mass ratio] 2.7 {ratio} Normal [facility] Comment on above: Performed By: #### H H #### [facility] [address] [address] [address] Richa Cheema HDL NORMAL > or = 60 mg/dl - LO W CARDIOVASCULAR RISK <40 mg/dl - HIGH CARDIOVASCULAR RISK Normal [facility] Comment on above: Performed By: #### H H #### [facility] [address] [address] [address] Richa Cheema LDL CALC NORMAL SEE BELOW Normal [facility] Comment on above: Result Comment: <100 mg/dl OPTIMAL 100 - 129 mg/dl NEAR OR ABOVE OPTIMAL 130 - 159 mg/dl BORDERLINE HIGH 160 - 189 mg/dl HIGH >190 mg/dl VERY HIGH Performed By: #### H H #### [facility] [address] [address] [address] Richa Cheema Triglyceride [Mass/Vol] 172 mg/dL Critically high <=150 [facility] Comment on above: Performed By: #### H H #### [facility] [address] [place] [address] Dr. Richa Cheema VLDL CALC 34.4 mg/dL Normal [facility] Comment on above: Performed By: #### H H #### [facility] [address] [place] [address] Dr. Richa Cheema PROF CHEM 8 (BAS METB)on Anion gap [Moles/Vol] 13.2 mmol/L Normal [facility] Comment on above: Performed By: #### H H #### [facility] [address] [place] [address] Dr. Richa Cheema Calcium [Mass/Vol] 8.8 mg/dL Normal 8.5-10.1 [facility] Comment on above: Performed By: #### H H #### [facility] [address] [place] [address] Dr. Richa Cheema Chloride [Moles/Vol] 108 mmol/L Critically high 98-107 [facility] Comment on above: Performed By: #### H H #### [facility] [address] [place] [address] Dr. Richa Cheema CO2 [Moles/Vol] 25.7 mmol/L Normal 21.0-32.0 [facility] Comment on above: Performed By: #### H H #### [facility] [address] [address] [address] Richa Cheema Creatinine [Mass/Vol] 2.30 mg/dL Critically high 0.55-1.02 [facility] Comment on above: Performed By: #### H H #### [facility] [address] [address] [address] Richa Cheema EGFR-AF CAMEROONIAN 25 mL/min/1.73m2 Critically low >=60 [facility] Comment on above: Performed By: #### H H #### [facility] [address] [address] [address] Richa Cheema EGFR-NON AF CAMEROONIAN 20 mL/min/1.73m2 Critically low >=60 [facility] Comment on above: Performed By: #### H H #### [facility] [address] [place] [address] Dr. Richa Cheema Glucose [Mass/Vol] 139 mg/dL Critically high 74-[address] [facility] Comment on above: Performed By: #### H H #### [facility] [address] [place] [address] Dr. Richa Cheema Potassium [Moles/Vol] 4.9 mmol/L Normal 3.5-5.1 [facility] Comment on above: Performed By: #### H H #### [facility] [address] [place] [address] Dr. Richa Cheema Sodium [Moles/Vol] 142 mmol/L Normal 136-145 [facility] Comment on above: Performed By: #### H H #### [facility] [address] [address] [address] Richa Cheema Urea nitrogen [Mass/Vol] 25.0 mg/dL Critically high 7.0-18 .0 [facility] Comment on above: Performed By: #### H H #### [facility] [address] [address] [address] Richa Cheema Urea nitrogen/Creatinine [Mass ratio] 10.9 mg/mg Normal [facility] Comment on above: Performed By: #### H H #### [facility] [address] [address] [address] Richa Cheema Maryn 02-21-2023 AST [Catalytic activity/Vol] 18 U/L Normal 15-37 [facility] Comment on above: Performed By: #### H H #### [facility] [id number] Richa Cheema Belkis 02-21-2023 ALT [Catalytic activity/Vol] 18 U/L Normal 14-59 [facility] Comment on above: Performed By: #### H H #### [facility] [id number] Richa Cheema Consent for Procedure/Surger yon 02-04-2023 Consent for Procedure/Surgery [id number]:12 7 Normal [facility] XR BONE SURVEYon 01-07-2023 XR BONE SURVEY EXAMINATION: XR BONE SURVEY HISTORY: Multiple myeloma in remission COMPARISON: XR bone survey 01/29/2022 TECHNIQUE: Two lateral projections of the skull. A lateral projection of the C-spine, T-spine and L-spine. Single view of the chest and pelvis. Single view of each humerus, forearm, femur, and tibia-fibula. FINDINGS: SKULL: No lytic lesion, periosteal reaction/thickening, fracture, or dislocation. C-SPINE: 3 mm anterior listhesis of C4 on 5. Moderate-marked degenerative disc disease C5-6, C6-7. No lytic lesion. T-SPINE: No lytic lesion, periosteal reaction/thickening, fracture, or dislocation. L-SPINE: L2-3 moderate disc space narrowing. No lytic lesion, periosteal reaction/thickening, fracture, or dislocation. CHEST: No expansile lesion, lytic lesion, or fracture. PELVIS: No lytic lesion, periosteal reaction/thickening, fracture, or dislocation. R HUMERUS: No lytic lesion, periosteal reaction/thickening, fracture, or dislocation. R FOREARM: No lytic lesion, periosteal reaction/thickening, fracture, or dislocation. L HUMERUS: No lytic lesion, periosteal reaction/thickening, fracture, or dislocation. L FOREARM: No lytic lesion, periosteal reaction/thickening, fracture, or dislocation. R FEMUR: No lytic lesion, periosteal reaction/thickening, fracture, or dislocation. R TIB/FIB: No lytic lesion, periosteal reaction/thickening, fracture, or dislocation. L FEMUR: No lytic lesion, periosteal reaction/thickening, fracture, or dislocation. L TIB/FIB: No lytic lesion, periosteal reaction/thickening, fracture, or dislocation. SOFT TISSUES: No swelling, [...] by: DIANN IBANEZ Date: 2023-01-07 07:54 Normal [facility] XR KUB 1 VIEWon 01-06-2023 XR KUB [...] by: DIANN IBANEZ Date: 2023-01-06 18:33 Normal [facility] Albumin [Mass/volume] in Ser um or PlasmaOrdered By: Claire Choi on 01-04-2023 Albumin [Mass/Vol] 3.6 g/dL 3.2-5.5 [facility] Alkaline phosphatase [Enzyma tic activity/volume] in Serum or PlasmaOrdered By: Claire Choi on 01-04-2023 ALP [Catalytic activity/Vol] 99 U/L 32-92 [facility] Aspartate aminotransferase [ Enzymatic activity/volume] in Serum or PlasmaOrdered By: Claire Choi on 01-04-2023 AST [Catalytic activity/Vol] 14 U/L 10-42 [facility] Basophils Auto (Bld) [#/Vol] Ordered By: Claire Choi on 01-04-2023 Basophils (Bld) [#/Vol] 0.1 10*3/uL 0.0-0.2 [facility] Basophils/100 WBC Auto (Bld) Ordered By: Claire Choi on 01-04-2023 Basophils/100 WBC (Bld) 0.8 % . [facility] Bilirubin.total [Mass/volume ] in Serum or PlasmaOrdered By: Claire Choi on 01-04-2023 Bilirubin [Mass/Vol] 0.6 mg/dL 0.3-1.2 [facility] Calcium [Mass/volume] in Ser um or PlasmaOrdered By: Claire Choi on 01-04-2023 Calcium [Mass/Vol] 8.7 mg/dL 8.2-10.2 [facility] Carbon dioxide, total [Moles /volume] in Serum or PlasmaOrdered By: Claire Choi on 01-04-2023 CO2 [Moles/Vol] 21.9 mmol/L 22.0-30.0 [facility] Chloride [Moles/volume] in S amanda or PlasmaOrdered By: Claire Choi on 01-04-2023 Chloride [Moles/Vol] 108 mmol/L 95-114 [facility] Creatinine and Glomerular fi ltration rate.predicted panel (S/P/Bld)Ordered By: Claire Choi on 01-04-2023 Creatinine [Mass/Vol] 2.48 mg/dL 0.44-1.03 [facility] Eosinophils Auto (Bld) [#/Vo l]Ordered By: Claire Choi on 01-04-2023 Eosinophils (Bld) [#/Vol] 0.2 10*3/uL 0.0-0.45 [facility] Eosinophils/100 WBC Auto (Bl d)Ordered By: Claire Choi on 01-04-2023 Eosinophils/100 WBC (Bld) 2.3 % . [facility] Erythrocyte distribution wid th Auto (RBC) [Ratio]Ordered By: Claire Choi on 01-04-2023 Erythrocyte distribution width (RBC) [Ratio] 13.2 % 11.9-15.3 [facility] Estimated glomerular filtrat ion rate (GFR) non- AmericanOrdered By: Claire Choi on 01-04-2023 GFR/1.73 sq M.predicted among non-blacks MDRD (S/P/Bld) [Vol rate/Area] 19 mL/Min [facility] Globulin Calc (S) [Mass/Vol] Ordered By: Claire Choi on 01-04-2023 Globulin (S) [Mass/Vol] 2.5 g/dL [facility] Glucose [Mass/volume] in Ser um or PlasmaOrdered By: Claire Choi on 01-04-2023 Glucose [Mass/Vol] 144 mg/dL 70-100 [facility] Comment on above: ADA recommended refe rence rangeRandom Glucose Reference Range is dependent on time and content of last meal. Glucose of more than 200 mg/dL in a nonstressed, ambulatory subject supports the diagnosis of Diabetes Mellitus. Hematocrit Auto (Bld) [Volum e fraction]Ordered By: Claire Choi on 01-04-2023 Hematocrit (Bld) [Volume fraction] 38.4 % 34.0-46.4 [facility] Hemoglobin [Mass/volume] in BloodOrdered By: Claire Choi on 01-04-2023 Hemoglobin (Bld) [Mass/Vol] 12.7 g/dL 11.8-15.4 [facility] Immunoglobulin light chains. kappa.free [Mass/volume] in SerumOrdered By: Claire Choi on 01-04-2023 Immunoglobulin light chains.kappa.free (S) [Mass/Vol] 26.9 mg/L 3.3-19.4 [facility] Immunoglobulin light chains. kappa.free/Immunoglobulin light chains.lambda.free [MassOrdered By: Claire Choi on 01-04-2023 Immunoglobulin light chains.kappa.free/Immuno globulin light chains.lambda.free (S) [Mass ratio] 2.24 0.26-1.65 [facility] Comment on above: Performed at: [address] [id number] Director: Elpidio Delgado PhD, Phone: [phone] Immunoglobulin light chains. lambda.free [Mass/volume] in Serum or PlasmaOrdered By: Claire Choi on 01-04-2023 Immunoglobulin light chains.lambda.free [Mass/Vol] 12.0 mg/L 5.7-26.3 [facility] Leukocytes [#/volume] correc dominick for nucleated erythrocytes in Blood by Automated counOrdered By: Claire Choi on 01-04-2023 WBC corrected for nucl RBC Auto (Bld) [#/Vol] 8.9 10*3/uL 3.8-11.6 [facility] Lymphocytes Auto (Bld) [#/Vo l]Ordered By: Claire Choi on 01-04-2023 Lymphocytes (Bld) [#/Vol] 3.0 10*3/uL 1.00-4.8 [facility] Lymphocytes/100 WBC Auto (Bl d)Ordered By: Claire Choi on 01-04-2023 Lymphocytes/100 WBC (Bld) 34.1 % . [facility] MCH Auto (RBC) [Entitic mass ]Ordered By: Claire Choi on 01-04-2023 MCH (RBC) [Entitic mass] 31.4 pg 24.7-34.3 [facility] MCHC Auto (RBC) [Mass/Vol]Or dered By: Claire Choi on 01-04-2023 MCHC (RBC) [Mass/Vol] 33.0 g/dL 32.0-35.0 [facility] MCV Auto (RBC) [Entitic vol] Ordered By: Claire Choi on 01-04-2023 MCV (RBC) [Entitic vol] 95.1 fL 80-100 [facility] Monocytes Auto (Bld) [#/Vol] Ordered By: Claire Choi on 01-04-2023 Monocytes (Bld) [#/Vol] 0.7 10*3/uL 0.0-0.8 [facility] Monocytes/100 WBC Auto (Bld) Ordered By: Claire Choi on 01-04-2023 Monocytes/100 WBC (Bld) 8.0 % . [facility] Neutrophils Auto (Bld) [#/Vo l]Ordered By: Claire Choi on 01-04-2023 Neutrophils (Bld) [#/Vol] 4.9 10*3/uL 1.8-7.7 [facility] Neutrophils/100 WBC Auto (Bl d)Ordered By: Claire Choi on 01-04-2023 Neutrophils/100 WBC (Bld) 54.8 % . [facility] No Panel InformationOrdered By: Claire Choi on 01-04-2023 Estimated GFR () 23 mL/Min [facility] Comment on above: GFR estimated refere nce range: According to KDOQI guidelines, <60 ml/min/1.73m2 is sufficient to diagnose a patient with chronic kidney disease. Pharmacy Creatinine Clearance (Chem 19.82 [facility] Nucleated erythrocytes [Pres ence] in Blood by Automated countOrdered By: Claire Choi on 01-04-2023 Nucleated RBC Auto Ql (Bld) 0.0 /100{WBC} 0-0.5 [facility] Platelet mean volume Auto (B ld) [Entitic vol]Ordered By: Claire Choi on 01-04-2023 Platelet mean volume (Bld) [Entitic vol] 9.6 fL 6.3-10.7 [facility] Platelets Auto (Bld) [#/Vol] Ordered By: Claire Choi on 01-04-2023 Platelets (Bld) [#/Vol] 210 10*3/uL 150-450 [facility] Potassium [Moles/volume] in Serum or PlasmaOrdered By: Claire Choi on 01-04-2023 Potassium [Moles/Vol] 4.3 mmol/L 3.5-5.1 [facility] Protein [Mass/volume] in Ser um or PlasmaOrdered By: Claire Choi on 01-04-2023 Protein [Mass/Vol] 6.1 g/dL 6.1-7.9 [facility] RBC Auto (Bld) [#/Vol]Ordere d By: Claire Choi on 01-04-2023 RBC (Bld) [#/Vol] 4.04 10*6/uL 3.60-5.00 [facility] Serum or plasma alanine genao otransferase measurement without P-5'-P (enzymatic activiOrdered By: Claire Choi on 01-04-2023 ALT No additional P-5'-P [Catalytic activity/Vol] 14 U/L 10-60 [facility] Serum or plasma albumin/glob ulin mass ratioOrdered By: Claire Choi on 01-04-2023 Albumin/Globulin [Mass ratio] 1.4 {ratio} [facility] Serum or plasma anion gap de terminationOrdered By: Claire Choi on 01-04-2023 Anion gap [Moles/Vol] 11.4 mmol/L 6.0-15.0 [facility] Sodium [Moles/volume] in Ser um or PlasmaOrdered By: Claire Choi on 01-04-2023 Sodium [Moles/Vol] 137 mmol/L 136-146 [facility] Urea nitrogen [Mass/volume] in Serum or PlasmaOrdered By: Claire Choi on 01-04-2023 Urea nitrogen [Mass/Vol] 33 mg/dL 9 [facility] WBC Auto (Bld) [#/Vol]Ordere d By: Claire Choi on 01-04-2023 WBC (Bld) [#/Vol] 8.9 10*3/uL 3.8-11.6 [facility] PTH INTACTon 12-15-2022 PTH, Intact 79 pg/mL Critically high 15-65 [facility] Comment on above: Performed By: #### M G, RENAL, URIC #### [facility] [address] [place] [address] Dr. Richa Cheema HEMOGRAM AND PLATELon 2022 Hematocrit (Bld) [Volume fraction] 40.4 % Normal 36.0-48.0 [facility] Comment on above: Performed By: #### H H #### [facility] [address] [address] [address] Richa Cheema Hemoglobin (Bld) [Mass/Vol] 13.5 g/dL Normal 12.0-16.0 [facility] Comment on above: Performed By: #### H H #### [facility] [address] [address] [address] Richa Cheema MCH (RBC) [Entitic mass] 31.7 pg Normal 26.7-34.0 [facility] Comment on above: Performed By: #### H H #### [facility] [address] [place] [address] Dr. Richa Cheema MCHC (RBC) [Mass/Vol] 33.4 g/dL Normal 29.9-35.2 [facility] Comment on above: Performed By: #### H H #### [facility] [address] [place] [address] Dr. Richa Cheema MCV (RBC) [Entitic vol] 94.8 fL Normal 81.0-99.0 [facility] Comment on above: Performed By: #### H H #### [facility] [address] [place] [address] Dr. Richa Cheema PLT 218 103/ul Normal 150-450 [facility] Comment on above: Performed By: #### H H #### [facility] [address] [place] [address] Dr. Richa Cheema RBC 4.26 106/ul Normal 4.20-5.40 [facility] Comment on above: Performed By: #### H H #### [facility] [address] [place] [address] Dr. Richa Cheema WBC 8.7 103/ul Normal 4.0-11.0 [facility] Comment on above: Performed By: #### H H #### [facility] [address] [place] [address] Dr. Richa Cheema MAGNESIUMon 12-14-2022 Magnesium [Mass/Vol] 2.0 mg/dL Normal 1.8-2.4 [facility] Comment on above: Performed By: #### M G, RENAL, URIC #### [facility] [address] [place] [address] Dr. Richa Cheema RENAL FUNCTION PANELon 12-14 Albumin [Mass/Vol] 3.4 g/dL Normal 3.4-5.0 [facility] Comment on above: Performed By: #### M G, RENAL, URIC #### [facility] [address] [place] [address] Dr. Richa Cheema Calcium [Mass/Vol] 8.6 mg/dL Normal 8.5-10.1 [facility] Comment on above: Performed By: #### M G, RENAL, URIC #### [facility] [address] [address] [address] Richa Cheema Chloride [Moles/Vol] 104 mmol/L Normal 98-107 [facility] Comment on above: Performed By: #### M G, RENAL, URIC #### [facility] [address] [place] [address] Dr. Richa Cheema CO2 [Moles/Vol] 29.7 mmol/L Normal 21.0-32.0 [facility] Comment on above: Performed By: #### M G, RENAL, URIC #### [facility] [address] [place] [address] Dr. Richa Cheema Creatinine [Mass/Vol] 2.29 mg/dL Critically high 0.55-1.02 [facility] Comment on above: Performed By: #### M G, RENAL, URIC #### [facility] [address] [place] [address] Dr. Richa Cheema EGFR-AF CAMEROONIAN 25 mL/min/1.73m2 Critically low >=60 [facility] Comment on above: Performed By: #### M G, RENAL, URIC #### [facility] [address] [place] [address] Dr. Richa Cheema EGFR-NON AF CAMEROONIAN 21 mL/min/1.73m2 Critically low >=60 [facility] Comment on above: Performed By: #### M G, RENAL, URIC #### [facility] [address] [place] [address] Dr. Richa Cheema Glucose [Mass/Vol] 133 mg/dL Critically high 74-[address] [facility] Comment on above: Performed By: #### M G, RENAL, URIC #### [facility] [address] [place] [address] Dr. Richa Cheema Phosphate [Mass/Vol] 3.9 mg/dL Normal 2.6-4.7 [facility] Comment on above: Performed By: #### M G, RENAL, URIC #### [facility] [address] [place] [address] Dr. Richa Cheema Potassium [Moles/Vol] 4.4 mmol/L Normal 3.5-5.1 [facility] Comment on above: Performed By: #### M G, RENAL, URIC #### [facility] [address] [place] [address] Dr. Richa Cheema Sodium [Moles/Vol] 141 mmol/L Normal 136-145 [facility] Comment on above: Performed By: #### M G, RENAL, URIC #### [facility] [address] [place] [address] Dr. Richa Cheema Urea nitrogen [Mass/Vol] 30.0 mg/dL Critically high 7.0-18 .0 [facility] Comment on above: Performed By: #### M G, RENAL, URIC #### [facility] [address] [place] [address] Dr. Richa Cheema UA RANDOM W/MICROSCOPICon BACTERIA NONE SEEN Normal NONE SEEN [facility] Comment on above: Performed By: #### U AMIC #### [facility] [address] [place] [address] Dr. Richa Cheema Bilirubin Ql (U) Negative Normal NEGATIVE [facility] Comment on above: Performed By: #### U AMIC #### [facility] [address] [place] [address] Dr. Richa Cheema CAST NONE SEEN Normal NONE SEEN [facility] Comment on above: Performed By: #### U AMIC #### [facility] [address] [place] [address] Dr. Richa Cheema Clarity (U) CLEAR Normal CLEAR [facility] Comment on above: Performed By: #### U AMIC #### [facility] [address] [place] [address] Dr. Richa Cheema Color (U) LT. YELLOW Normal YELLOW [facility] Comment on above: Performed By: #### U AMIC #### [facility] [address] [place] [address] Dr. Richa Cheema Crystals LM Nom (Urine sed) NONE SEEN Normal NONE SEEN [facility] Comment on above: Performed By: #### U AMIC #### [facility] [address] [address] [address] Richa Cheema Epithelial cells LM Ql (Urine sed) RARE Normal NONE SEEN /RARE [facility] Comment on above: Performed By: #### U AMIC #### [facility] [address] [address] [address] Richa Cheema Glucose Ql (U) Negative Normal NEGATIVE [facility] Comment on above: Performed By: #### U AMIC #### [facility] [address] [address] [address] Richa Cheema Hemoglobin Ql (U) TRACE-INTACT Abnormal NEGATIVE [facility] Comment on above: Performed By: #### U AMIC #### [facility] [address] [place] [address] Dr. Richa Cheema Ketones Ql (U) Negative Normal NEGATIVE [facility] Comment on above: Performed By: #### U AMIC #### [facility] [address] [address] [address] Richa Cheema LEUKOCYTES Negative Normal NEGATIVE [facility] Comment on above: Performed By: #### U AMIC #### [facility] [address] [address] [address] Richa Cheema MUCOUS NONE SEEN Normal NONE SEEN [facility] Comment on above: Performed By: #### U AMIC #### [facility] [address] [address] [address] Richa Cheema Nitrite Ql (U) Negative Normal NEGATIVE [facility] Comment on above: Performed By: #### U AMIC #### [facility] [address] [address] [address] Richa Cheema pH (U) 8.0 [pH] Normal 5-9 [facility] Comment on above: Performed By: #### U AMIC #### [facility] [address] [place] [address] Dr. Richa Cheema RBC 0-2 Normal 0-2 [facility] Comment on above: Performed By: #### U AMIC #### [facility] [address] [address] [address] Richa Cheema SPEC GRAVITY 1.015 Normal 1.005-<=1. 025 [facility] Comment on above: Performed By: #### U AMIC #### [facility] [address] [place] [address] Dr. Richa Cheema UA PROTEIN 100 mg/dl Abnormal NEGATIVE/ TRACE [facility] Comment on above: Performed By: #### U AMIC #### [facility] [address] [place] [address] Dr. Richa Cheema Urobilinogen Qn (U) 0.2 {Marley'U}/dL Normal 0.2 - 1. 0 [facility] Comment on above: Performed By: #### U AMIC #### [facility] [address] [place] [address] Dr. Richa Cheema WBC NONE SEEN Normal NONE SEEN [facility] Comment on above: Performed By: #### U AMIC #### [facility] [address] [place] [address] Dr. Richa Cheema URIC ACID SERUMon 12-14-2022 Urate [Mass/Vol] 5.3 mg/dL Normal 2.6-6.0 [facility] Comment on above: Performed By: #### M G, RENAL, URIC #### [facility] [address] [place] [address] Dr. Richa Cheema URINE T PROTEIN CREAT RATIOo n 12-14-2022 Protein (U) [Mass/Vol] 113.5 mg/dL Critically high <=12.0 [facility] Comment on above: Performed By: #### M G, RENAL, URIC #### [facility] [address] [place] [address] Dr. Richa Cheema UR PROT CREAT RAT 1.55 Normal [facility] Comment on above: Performed By: #### M G, RENAL, URIC #### [facility] [address] [place] [address] Dr. Richa Cheema URINE CREAT 73.37 mg/dL Normal 20.00-300. 00 [facility] Comment on above: Performed By: #### M G, RENAL, URIC #### [facility] [address] [place], [place] [address] Dr. Richa Cheema VITAMIN D 25 OHon 12-14-2022 VIT D 25-OH 42.8 ng/mL Normal [facility] Comment on above: Performed By: #### H H #### [facility] [address] [place], [place] [address] Dr. Richa Cheema VIT D RANGES SEE BELOW Normal [facility] Comment on above: Result Comment: <20 ng/mL Vit D deficient 20 - <30 ng/mL Vit D insufficient 30 - 100 ng/mL Vit D sufficient >100 ng/mL Potential Toxicity Performed By: #### H H #### [facility] [address] [address] [address] Richa Cheema Albumin [Mass/volume] in Ser um or PlasmaOrdered By: Claire Choi on 10-04-2022 Albumin [Mass/Vol] 3.6 g/dL 2.9-4.4 [facility] - Hematology and Cell countsOrdered By: Claire Choi on 10-04-2022 Nucleated RBC/100 WBC (Bld) [Ratio] 0.1 % 0-0.5 [facility] No Panel InformationOrdered By: Claire Choi on 10-04-2022 Protein Electrophoresis M-Krystian Not observed g/dL Not Observed [facility] Protein Electrophoresis Note See comment . [facility] Comment on above: Protein electrophore sis scan will follow via computer,mail, or digital imaging specialist delivery.Performed at: [address] [id number] Director: Elpidio Delgado PhD, Phone: [phone] Protein [Mass/volume] in Ser um or PlasmaOrdered By: Claire Choi on 10-04-2022 Protein [Mass/Vol] 6.1 g/dL 6.0-8.5 [facility] Serum globulin measurement ( mass/volume)Ordered By: Claire Choi on 10-04-2022 Globulin (S) [Mass/Vol] 2.5 g/dL 2.2-3.9 [facility] Serum or plasma albumin/glob ulin mass ratioOrdered By: Claire Choi on 10-04-2022 Albumin/Globulin [Mass ratio] 1.4 {ratio} 0.7-1.7 [facility] Serum or plasma alpha 1 glob ulin measurement by electrophoresis (mass/volume)Ordered By: Claire Choi on 10-04-2022 Alpha 1 globulin Elph [Mass/Vol] 0.2 g/dL 0.0-0.4 [facility] Serum or plasma alpha 2 glob ulin measurement by electrophoresis (mass/volume)Ordered By: Claire Choi on 10-04-2022 Alpha 2 globulin Elph [Mass/Vol] 0.9 g/dL 0.4-1.0 [facility] Serum or plasma beta globuli n measurement by electrophoresis (mass/volume)Ordered By: Claire Choi on 10-04-2022 Beta globulin Elph [Mass/Vol] 0.8 g/dL 0.7-1.3 [facility] Serum or plasma gamma globul in measurement by electrophoresis (mass/volume)Ordered By: Claire Choi on 10-04-2022 Gamma globulin Elph [Mass/Vol] 0.6 g/dL 0.4-1.8 [facility] Albumin [Mass/volume] in Ser um or PlasmaOrdered By: Claire Choi on 07-13-2022 Albumin [Mass/Vol] 3.4 g/dL 2.9-4.4 [facility] Immunoglobulin light chains. kappa.free [Mass/volume] in SerumOrdered By: Clarie Choi on 07-13-2022 Immunoglobulin light chains.kappa.free (S) [Mass/Vol] 21.9 mg/L 3.3-19.4 [facility] Immunoglobulin light chains. kappa.free/Immunoglobulin light chains.lambda.free [MassOrdered By: Claire Choi on 07-13-2022 Immunoglobulin light chains.kappa.free/Immuno globulin light chains.lambda.free (S) [Mass ratio] 1.87 0.26-1.65 [facility] Comment on above: Performed at: [address] [id number] Hand Stapler: Elpidio Delgado PhD, Phone: [phone] Immunoglobulin light chains. lambda.free [Mass/volume] in Serum or PlasmaOrdered By: Claire Choi on 07-13-2022 Immunoglobulin light chains.lambda.free [Mass/Vol] 11.7 mg/L 5.7-26.3 [facility] - Chemistry and C hemistry - challengeOrdered By: Claire Choi on 07-13-2022 Protein [Mass/Vol] 0.2 g/dL Not Observed [facility] No Panel InformationOrdered By: Claire Choi on 07-13-2022 Protein Electrophoresis Note See comment . [facility] Comment on above: Protein electrophore sis scan will follow via computer, mail, or digital imaging specialist delivery. Performed at: [facility] [id number] Hand Stapler: Elpidio Delgado PhD, Phone: [phone] Protein [Mass/volume] in Ser um or PlasmaOrdered By: Claire Choi on 07-13-2022 Protein [Mass/Vol] 6.2 g/dL 6.0-8.5 [facility] Serum globulin measurement ( mass/volume)Ordered By: Claire Choi on 07-13-2022 Globulin (S) [Mass/Vol] 2.8 g/dL 2.2-3.9 [facility] Serum or plasma albumin/glob ulin mass ratioOrdered By: Claire Choi on 07-13-2022 Albumin/Globulin [Mass ratio] 1.2 {ratio} 0.7-1.7 [facility] Serum or plasma alpha 1 glob ulin measurement by electrophoresis (mass/volume)Ordered By: Claire Choi on 07-13-2022 Alpha 1 globulin Elph [Mass/Vol] 0.2 g/dL 0.0-0.4 [facility] Serum or plasma alpha 2 glob ulin measurement by electrophoresis (mass/volume)Ordered By: Claire Choi on 07-13-2022 Alpha 2 globulin Elph [Mass/Vol] 0.9 g/dL 0.4-1.0 [facility] Serum or plasma beta globuli n measurement by electrophoresis (mass/volume)Ordered By: Claire Choi on 07-13-2022 Beta globulin Elph [Mass/Vol] 1.0 g/dL 0.7-1.3 [facility] Serum or plasma gamma globul in measurement by electrophoresis (mass/volume)Ordered By: Claire Choi on 07-13-2022 Gamma globulin Elph [Mass/Vol] 0.8 g/dL 0.4-1.8 [facility] CBC AUTO DIFFon 07-12-2022 BASO # 0.0 103/ul Normal 0.0-0.1 [facility] Comment on above: Performed By: #### M G, RENAL, URIC #### [facility] [address] [place] [address] Dr. Richa Cheema Basophils/100 WBC (Bld) 0.2 % Normal 0.2-2.0 [facility] Comment on above: Performed By: #### M G, RENAL, URIC #### [facility] [address] [place] [address] Dr. Richa Cheema EO # 0.1 103/ul Normal 0.0-0.7 [facility] Comment on above: Performed By: #### M G, RENAL, URIC #### [facility] [address] [place] [address] Dr. Richa Cheema Eosinophils/100 WBC (Bld) 1.5 % Normal 0.9-7.0 [facility] Comment on above: Performed By: #### M G, RENAL, URIC #### [facility] [address] [place] [address] Dr. Richa Cheema Erythrocyte distribution width (RBC) [Ratio] 13.8 % Normal 11.0-15.0 [facility] Comment on above: Performed By: #### M G, RENAL, URIC #### [facility] [address] [place] [address] Dr. Richa Cheema Hematocrit (Bld) [Volume fraction] 38.4 % Normal 36.0-48.0 [facility] Comment on above: Performed By: #### M G, RENAL, URIC #### [facility] [address] [place] [address] Dr. Richa Cheema Hemoglobin (Bld) [Mass/Vol] 13.0 g/dL Normal 12.0-16.0 [facility] Comment on above: Performed By: #### M G, RENAL, URIC #### [facility] [address] [address] [address] Richa Cheema IG # 0.01 10e3/ul Normal 0.00-0.03 [facility] Comment on above: Performed By: #### M G, RENAL, URIC #### [facility] [address] [address] [address] Richa Cheema IG % 0.1 % Normal 0.0-0.5 [facility] Comment on above: Performed By: #### M G, RENAL, URIC #### [facility] [address] [place] [address] Dr. Richa Cheema LYMPH # 3.5 103/ul Normal 1.2-3.8 [facility] Comment on above: Performed By: #### M G, RENAL, URIC #### [facility] [address] [place] [address] Dr. Richa Cheema Lymphocytes/100 WBC (Bld) 42.4 % Normal 20.5-60.0 [facility] Comment on above: Performed By: #### M G, RENAL, URIC #### [facility] [address] [place] [address] Dr. Richa Cheema MANUAL DIFF REQ NO Normal [facility] Comment on above: Performed By: #### M G, RENAL, URIC #### [facility] [address] [place] [address] Dr. Richa Cheema MCH (RBC) [Entitic mass] 31.8 pg Normal 26.7-34.0 [facility] Comment on above: Performed By: #### M G, RENAL, URIC #### [facility] [address] [place] [address] Dr. Richa Cheema MCHC (RBC) [Mass/Vol] 33.9 g/dL Normal 29.9-35.2 [facility] Comment on above: Performed By: #### M G, RENAL, URIC #### [facility] [address] [place] [address] Dr. Richa Cheema MCV (RBC) [Entitic vol] 93.9 fL Normal 81.0-99.0 [facility] Comment on above: Performed By: #### M G, RENAL, URIC #### [facility] [address] [place] [address] Dr. Richa Cheema MONO # 0.5 103/ul Normal 0.3-0.8 [facility] Comment on above: Performed By: #### M G, RENAL, URIC #### [facility] [address] [place] [address] Dr. Richa Cheema Monocytes/100 WBC (Bld) 6.6 % Normal 1.7-12.0 [facility] Comment on above: Performed By: #### M G, RENAL, URIC #### [facility] [address] [place] [address] Dr. Richa Cheema NEUT # 4.0 103/ul Normal 1.4-6.5 [facility] Comment on above: Performed By: #### M G, RENAL, URIC #### [facility] [address] [place] [address] Dr. Richa Cheema Neutrophils/100 WBC (Bld) 49.2 % Normal 43.0-75.0 [facility] Comment on above: Performed By: #### M G, RENAL, URIC #### [facility] [address] [place] [address] Dr. Richa Cheema Platelet mean volume (Bld) [Entitic vol] 10.9 fL Normal 9.5-13.5 [facility] Comment on above: Performed By: #### M G, RENAL, URIC #### [facility] [address] [place] [address] Dr. Richa Cheema PLT 193 103/ul Normal 150-450 [facility] Comment on above: Performed By: #### M G, RENAL, URIC #### [facility] [address] [place] [address] Dr. Richa Cheema RBC 4.09 106/ul Critically low 4.20-5.40 [facility] Comment on above: Performed By: #### M G, RENAL, URIC #### [facility] [address] [place] [address] Dr. Richa Cheema WBC 8.2 103/ul Normal 4.0-11.0 [facility] Comment on above: Performed By: #### M G, RENAL, URIC #### [facility] [address] [place] [address] Dr. Richa Cheema PROF 14(COMP METB)on 022 Albumin [Mass/Vol] 3.7 g/dL Normal 3.4-5.0 [facility] Comment on above: Performed By: #### C MP #### [facility] [address] [place] [address] Dr. Richa Cheema Albumin/Globulin [Mass ratio] 1.2 {ratio} Normal [facility] Comment on above: Performed By: #### C MP #### [facility] [address] [place] [address] Dr. Richa Cheema ALP [Catalytic activity/Vol] 105 U/L Normal 46-116 [facility] Comment on above: Performed By: #### C MP #### [facility] [address] [place] [address] Dr. Richa Cheema ALT [Catalytic activity/Vol] 18 U/L Normal 14-59 [facility] Comment on above: Performed By: #### C MP #### [facility] [address] [place] [address] Dr. Richa Cheema Anion gap [Moles/Vol] 11.4 mmol/L Normal [facility] Comment on above: Performed By: #### C MP #### [facility] [address] [place] [address] Dr. Richa Cheema AST [Catalytic activity/Vol] 12 U/L Critically low 15-37 [facility] Comment on above: Performed By: #### C MP #### [facility] [address] [place] [address] Dr. Richa Cheema Bilirubin [Mass/Vol] 0.3 mg/dL Normal 0.2-1.0 [facility] Comment on above: Performed By: #### C MP #### [facility] [address] [address] [address] Richa Cheema Calcium [Mass/Vol] 8.8 mg/dL Normal 8.5-10.1 [facility] Comment on above: Performed By: #### C MP #### [facility] [address] [address] [address] Richa Cheema Chloride [Moles/Vol] 104 mmol/L Normal 98-107 [facility] Comment on above: Performed By: #### C MP #### [facility] [address] [address] [address] Richa Cheema CO2 [Moles/Vol] 26.9 mmol/L Normal 21.0-32.0 [facility] Comment on above: Performed By: #### C MP #### [facility] [address] [address] [address] Richa Cheema Creatinine [Mass/Vol] 2.38 mg/dL Critically high 0.55-1.02 [facility] Comment on above: Performed By: #### C MP #### [facility] [address] [address] [address] Richa Cheema EGFR-AF CAMEROONIAN 24 mL/min/1.73m2 Critically low >=60 [facility] Comment on above: Performed By: #### C MP #### [facility] [address] [address] [address] Richa Cheema EGFR-NON AF CAMEROONIAN 20 mL/min/1.73m2 Critically low >=60 [facility] Comment on above: Performed By: #### C MP #### [facility] [address] [address] [address] Richa Cheema Globulin (S) [Mass/Vol] 3.1 g/dL Normal [facility] Comment on above: Performed By: #### C MP #### [facility] [address] [address] [address] Richa Cheema Glucose [Mass/Vol] 146 mg/dL Critically high 74-106 [facility] Comment on above: Performed By: #### C MP #### [facility] [address] [address] [address] Richa Cheema Potassium [Moles/Vol] 4.3 mmol/L Normal 3.5-5.1 [facility] Comment on above: Performed By: #### C MP #### [facility] [address] [address] [address] Richa Cheema Protein [Mass/Vol] 6.8 g/dL Normal 6.4-8.2 [facility] Comment on above: Performed By: #### C MP #### [facility] [address] [address] [address] Richa Cheema Sodium [Moles/Vol] 138 mmol/L Normal 136-145 [facility] Comment on above: Performed By: #### C MP #### [facility] [address] [address] [address] Richa Cheema Urea nitrogen [Mass/Vol] 31.0 mg/dL Critically high 7.0-18 .0 [facility] Comment on above: Performed By: #### C MP #### [facility] [address] [address] [address] Richa Cheema Urea nitrogen/Creatinine [Mass ratio] 13.0 mg/mg Normal [facility] Comment on above: Performed By: #### C MP #### [facility] [address] [address] [address] Richa Cheema PTH INTACTon 07-01-2022 PTH, Intact 93 pg/mL Critically high 15-65 [facility] Comment on above: Performed By: #### H H #### [facility] [address] [address] [address] Richa Cheema VIT D 25-OH [facility]on 2021 Vitamin D, 25-Hydroxy 31.8 ng/mL Normal 30.0-100.0 [facility] Comment on above: Result Comment: Emelyn min D deficiency has been defined by the [place] [employer] and an Endocrine Society practice guideline as a level of serum 25-OH vitamin D less than 20 ng/mL (1,2). The Endocrine Society went on to further define vitamin D insufficiency as a level between 21 and 29 ng/mL (2). 1. IOM ([place] [employer]). 2010. Dietary reference intakes for calcium and D. [place]: The National Academies Press. 2. Reji MF, Caro RSUH, Marguerite MCMAHON, et al. Evaluation, treatment, and prevention of vitamin D deficiency: an Endocrine Society clinical practice guideline. JCEM. 2010; 96(7):1911-30. Performed By: #### M G, RENAL, URIC #### [facility] [address] [address] [address] Richa Cheema HEMOGRAM AND PLATELon 2021 Hematocrit (Bld) [Volume fraction] 39.4 % Normal 36.0-48.0 [facility] Comment on above: Performed By: #### H H #### [facility] [address] [place] [address] Dr. Richa Cheema Hemoglobin (Bld) [Mass/Vol] 13.1 g/dL Normal 12.0-16.0 [facility] Comment on above: Performed By: #### H H #### [facility] [address] [address] [address] Richa Cheema MCH (RBC) [Entitic mass] 31.6 pg Normal 26.7-34.0 [facility] Comment on above: Performed By: #### H H #### [facility] [address] [place] [address] Dr. Richa Cheema MCHC (RBC) [Mass/Vol] 33.2 g/dL Normal 29.9-35.2 [facility] Comment on above: Performed By: #### H H #### [facility] [address] [address] [address] Richa Cheema MCV (RBC) [Entitic vol] 94.9 fL Normal 81.0-99.0 [facility] Comment on above: Performed By: #### H H #### [facility] [address] [place] [address] Dr. Richa Cheema PLT 186 103/ul Normal 150-450 [facility] Comment on above: Performed By: #### H H #### [facility] [address] [address] [address] Richa Cheema RBC 4.15 106/ul Critically low 4.20-5.40 [facility] Comment on above: Performed By: #### H H #### [facility] [address] [address] [address] Richa Cheema WBC 9.5 103/ul Normal 4.0-11.0 [facility] Comment on above: Performed By: #### H H #### [facility] [address] [place] [address] Dr. Richa Cheema MAGNESIUMon 06-30-2022 Magnesium [Mass/Vol] 1.9 mg/dL Normal 1.8-2.4 [facility] Comment on above: Performed By: #### M G, RENAL, URIC #### [facility] [address] [place] [address] Dr. Richa Cheema RENAL FUNCTION PANELon 06-30 Albumin [Mass/Vol] 3.6 g/dL Normal 3.4-5.0 [facility] Comment on above: Performed By: #### M G, RENAL, URIC #### [facility] [address] [address] [address] Richa Cheema Calcium [Mass/Vol] 8.6 mg/dL Normal 8.5-10.1 [facility] Comment on above: Performed By: #### M G, RENAL, URIC #### [facility] [address] [place] [address] Dr. Richa Cheema Chloride [Moles/Vol] 105 mmol/L Normal 98-107 [facility] Comment on above: Performed By: #### M G, RENAL, URIC #### [facility] [address] [place] [address] Dr. Richa Cheema CO2 [Moles/Vol] 25.5 mmol/L Normal 21.0-32.0 [facility] Comment on above: Performed By: #### M G, RENAL, URIC #### [facility] [address] [address] [address] Richa Cheema Creatinine [Mass/Vol] 2.19 mg/dL Critically high 0.55-1.02 [facility] Comment on above: Performed By: #### M G, RENAL, URIC #### [facility] [address] [place] [address] Dr. Richa Cheema EGFR-AF CAMEROONIAN 26 mL/min/1.73m2 Critically low >=60 [facility] Comment on above: Performed By: #### M G, RENAL, URIC #### [facility] [address] [place] [address] Dr. Richa Cheema EGFR-NON AF CAMEROONIAN 22 mL/min/1.73m2 Critically low >=60 [facility] Comment on above: Performed By: #### M G, RENAL, URIC #### [facility] [address] [place] [address] Dr. Richa Cheema Glucose [Mass/Vol] 156 mg/dL Critically high 74-[address] [facility] Comment on above: Performed By: #### M G, RENAL, URIC #### [facility] [address] [place] [address] Dr. Richa Cheema Phosphate [Mass/Vol] 3.8 mg/dL Normal 2.6-4.7 [facility] Comment on above: Performed By: #### M G, RENAL, URIC #### [facility] [address] [place] [address] Dr. Richa Cheema Potassium [Moles/Vol] 4.7 mmol/L Normal 3.5-5.1 [facility] Comment on above: Performed By: #### M G, RENAL, URIC #### [facility] [address] [place] [address] Dr. Richa Cheema Sodium [Moles/Vol] 139 mmol/L Normal 136-145 [facility] Comment on above: Performed By: #### M G, RENAL, URIC #### [facility] [address] [place] [address] Dr. Richa Cheema Urea nitrogen [Mass/Vol] 25.0 mg/dL Critically high 7.0-18 .0 [facility] Comment on above: Performed By: #### M G, RENAL, URIC #### [facility] [address] [place] [address] Dr. Richa Cheema UA RANDOM W/MICROSCOPICon BACTERIA NONE SEEN Normal NONE SEEN [facility] Comment on above: Performed By: #### H H #### [facility] [address] [place] [address] Dr. Richa Cheema Bilirubin Ql (U) Negative Normal NEGATIVE [facility] Comment on above: Performed By: #### H H #### [facility] [address] [place] [address] Dr. Richa Cheema CAST NONE SEEN Normal NONE SEEN [facility] Comment on above: Performed By: #### H H #### [facility] [address] [place] [address] Dr. Richa Cheema Clarity (U) CLEAR Normal CLEAR [facility] Comment on above: Performed By: #### H H #### [facility] [address] [place] [address] Dr. Richa Cheema Color (U) LT. YELLOW Normal YELLOW [facility] Comment on above: Performed By: #### H H #### [facility] [address] [place] [address] Dr. Richa Cheema Crystals LM Nom (Urine sed) NONE SEEN Normal NONE SEEN [facility] Comment on above: Performed By: #### H H #### [facility] [address] [place] [address] Dr. Richa Cheema Epithelial cells LM Ql (Urine sed) FEW Abnormal NONE SEEN /RARE [facility] Comment on above: Performed By: #### H H #### [facility] [address] [place] [address] Dr. Richa Cheema Glucose Ql (U) Negative Normal NEGATIVE [facility] Comment on above: Performed By: #### H H #### [facility] [address] [place] [address] Dr. Richa Cheema Hemoglobin Ql (U) Negative Normal NEGATIVE [facility] Comment on above: Performed By: #### H H #### [facility] [address] [place] [address] Dr. Richa Cheema Ketones Ql (U) Negative Normal NEGATIVE [facility] Comment on above: Performed By: #### H H #### [facility] [address] [place] [address] Dr. Richa Cheema LEUKOCYTES Negative Normal NEGATIVE [facility] Comment on above: Performed By: #### H H #### [facility] [address] [place] [address] Dr. Richa Cheema MUCOUS NONE SEEN Normal NONE SEEN [facility] Comment on above: Performed By: #### H H #### [facility] [address] [place] [address] Dr. Richa Cheema Nitrite Ql (U) Negative Normal NEGATIVE [facility] Comment on above: Performed By: #### H H #### [facility] [address] [place] [address] Dr. Richa Cheema pH (U) 7.5 [pH] Normal 5-9 [facility] Comment on above: Performed By: #### H H #### [facility] [address] [place] [address] Dr. Richa Cheema RBC NONE SEEN Abnormal 0-2 [facility] Comment on above: Performed By: #### H H #### [facility] [address] [place] [address] Dr. Richa Cheema SPEC GRAVITY 1.015 Normal 1.005-<=1. 025 [facility] Comment on above: Performed By: #### H H #### [facility] [address] [place] [address] Dr. Richa Cheema UA PROTEIN 30 mg/dl Abnormal NEGATIVE/ TRACE [facility] Comment on above: Performed By: #### H H #### [facility] [address] [place] [address] Dr. Richa Cheema Urobilinogen Qn (U) 0.2 {Marley'U}/dL Normal 0.2 - 1. 0 [facility] Comment on above: Performed By: #### H H #### [facility] [address] [place] [address] Dr. Richa Cheema WBC NONE SEEN Normal NONE SEEN [facility] Comment on above: Performed By: #### H H #### [facility] [address] [place] [address] Dr. Richa Cheema URIC ACID SERUMon 06-30-2022 Urate [Mass/Vol] 5.4 mg/dL Normal 2.6-6.0 [facility] Comment on above: Performed By: #### M G, RENAL, URIC #### [facility] [address] [place] [address] Dr. Richa Cheema URINE T PROTEIN CREAT RATIOo n 06-30-2022 Protein (U) [Mass/Vol] 72.9 mg/dL Critically high <=12.0 [facility] Comment on above: Performed By: #### U RTPCR #### [facility] [address] [place] [address] Dr. Richa Cheema UR PROT CREAT RAT 0.90 Normal [facility] Comment on above: Performed By: #### U RTPCR #### [facility] [address] [place] [address] Dr. Richa Cheema URINE CREAT 80.68 mg/dL Normal 20.00-300. 00 [facility] Comment on above: Performed By: #### U RTPCR #### [facility] [address] [place] [address] Dr. Richa Cheema Office Visit (Cardiology)on 06-16-2022 [...] Metabolic Panel; Status:Active - Retrospective Authorization; Requested for:21Feb2023; Class 1 obesity with body mass index [...] recurrence. She did have noninvasive assessment at [facility], which was negative. Couple of years ago. [...] TabletTake 1 (more content not included)... Normal [employer] Tobacco Screening.on 022 Adult depression screening assessment No [facility] [employer] 250 DO Work Phone: Fall risk assessment a) No falls within the last year [facility] [employer] 250 DO Work Phone: Tobacco use status CP b) No [facility] 250 DO Work Phone: FREE LIGHT CHAINS PLUS RATIO on 06-01-2022 Free Marceline Lt Chains,S 24.1 mg/L Critically high 3.3-19.4 [facility] Comment on above: Performed By: #### M G, RENAL, URIC #### [facility] [address] [place], [place] [address] Dr. Richa Cheema Free Lambda Lt Chains,S 17.1 mg/L Normal 5.7-26.3 [facility] Comment on above: Performed By: #### M G, RENAL, URIC #### [facility] [address] [place], [place] [address] Dr. Richa Cheema Marceline/Lambda Ratio, S 1.41 Normal 0.26-1.65 [facility] Comment on above: Performed By: #### M G, RENAL, URIC #### [facility] [address] [place], [place] [address] Dr. Richa Cheema Albumin [Mass/volume] in Ser um or PlasmaOrdered By: Claire Choi on 05-31-2022 Albumin [Mass/Vol] 3.5 g/dL 3.2-5.5 [facility] Basophils Auto (Bld) [#/Vol] Ordered By: Claire Choi on 05-31-2022 Basophils (Bld) [#/Vol] 0.1 10*3/uL 0.0-0.2 [facility] Basophils/100 WBC Auto (Bld) Ordered By: Claire Choi on 05-31-2022 Basophils/100 WBC (Bld) 0.9 % . [facility] Blood hemoglobin measurement (mass/volume)Ordered By: Claire Choi on 05-31-2022 Hemoglobin (Bld) [Mass/Vol] 13.5 g/dL 11.8-15.4 [facility] Blood leukocytes automated c ount (number/volume)Ordered By: Claire Choi on 05-31-2022 WBC (Bld) [#/Vol] 9.6 10*3/uL 4.5-11.0 [facility] Creatinine and Glomerular fi ltration rate.predicted panel (S/P/Bld)Ordered By: Claire Choi on 05-31-2022 Creatinine [Mass/Vol] 2.38 mg/dL 0.44-1.03 [facility] Eosinophils Auto (Bld) [#/Vo l]Ordered By: Claire Choi on 05-31-2022 Eosinophils (Bld) [#/Vol] 0.1 10*3/uL 0.0-0.45 [facility] Eosinophils/100 WBC Auto (Bl d)Ordered By: Claire Choi on 05-31-2022 Eosinophils/100 WBC (Bld) 1.0 % . [facility] Erythrocyte distribution wid th Auto (RBC) [Ratio]Ordered By: Claire Choi on 05-31-2022 Erythrocyte distribution width (RBC) [Ratio] 13.8 % 11.9-15.3 [facility] Estimated glomerular filtrat ion rate (GFR) non- AmericanOrdered By: Claire Choi on 05-31-2022 GFR/1.73 sq M.predicted among non-blacks MDRD (S/P/Bld) [Vol rate/Area] 20 mL/Min [facility] Globulin Calc (S) [Mass/Vol] Ordered By: Claire Choi on 05-31-2022 Globulin (S) [Mass/Vol] 2.7 g/dL [facility] Hematocrit Auto (Bld) [Volum e fraction]Ordered By: Claire Choi on 05-31-2022 Hematocrit (Bld) [Volume fraction] 41.0 % 34.0-46.4 [facility] - Hematology and Cell countsOrdered By: Claire Choi on 05-31-2022 Nucleated RBC/100 WBC (Bld) [Ratio] 0.1 % 0-0.5 [facility] Lymphocytes Auto (Bld) [#/Vo l]Ordered By: Claire Choi on 05-31-2022 Lymphocytes (Bld) [#/Vol] 3.1 10*3/uL 1.00-4.8 [facility] Lymphocytes/100 WBC Auto (Bl d)Ordered By: Claire Choi on 05-31-2022 Lymphocytes/100 WBC (Bld) 32.7 % . [facility] MCH Auto (RBC) [Entitic mass ]Ordered By: Claire Choi on 05-31-2022 MCH (RBC) [Entitic mass] 31.0 pg 24.7-34.3 [facility] MCHC Auto (RBC) [Mass/Vol]Or dered By: Claire Choi on 05-31-2022 MCHC (RBC) [Mass/Vol] 33.0 g/dL 32.0-35.0 [facility] MCV Auto (RBC) [Entitic vol] Ordered By: Claire Choi on 05-31-2022 MCV (RBC) [Entitic vol] 94.0 fL 80-100 [facility] Monocytes Auto (Bld) [#/Vol] Ordered By: Claire Choi on 05-31-2022 Monocytes (Bld) [#/Vol] 0.6 10*3/uL 0.0-0.8 [facility] Monocytes/100 WBC Auto (Bld) Ordered By: Claire Choi on 05-31-2022 Monocytes/100 WBC (Bld) 6.0 % . [facility] Neutrophils Auto (Bld) [#/Vo l]Ordered By: Claire Choi on 05-31-2022 Neutrophils (Bld) [#/Vol] 5.7 10*3/uL 1.8-7.7 [facility] Neutrophils/100 WBC Auto (Bl d)Ordered By: Claire Choi on 05-31-2022 Neutrophils/100 WBC (Bld) 59.4 % . [facility] No Panel InformationOrdered By: Claire Choi on 05-31-2022 Estimated GFR () 24 mL/Min [facility] Comment on above: GFR estimated refere nce range: According to KDOQI guidelines, <60 ml/min/1.73m2 is sufficient to diagnose a patient with chronic kidney disease. Pharmacy Creatinine Clearance (Chem 20.55 [facility] PROTEIN ELECTROPHERESISon Albumin [Mass/Vol] 3.8 g/dL Normal 2.9-4.4 [facility] Comment on above: Performed By: #### P RTELEC #### [facility] [address] [place] [address] Dr. Richa Cheema Albumin/Globulin [Mass ratio] 1.5 {ratio} Normal 0.7-1.7 [facility] Comment on above: Performed By: #### P RTELEC #### [facility] [address] [place] [address] Dr. Richa Cheema Wzgff-2-Ojlpqzkd 0.2 g/dL Normal 0.0-0.4 [facility] Comment on above: Performed By: #### P RTELEC #### [facility] [address] [place] [address] Dr. Richa Cheema Lsasx-5-Dbjlbvky 0.9 g/dL Normal 0.4-1.0 [facility] Comment on above: Performed By: #### P RTELEC #### [facility] [address] [place] [address] Dr. Richa Cheema Beta Globulin 0.9 g/dL Normal 0.7-1.3 [facility] Comment on above: Performed By: #### P RTELEC #### [facility] [address] [place] [address] Dr. Richa Cheema Gamma Globulin 0.6 g/dL Normal 0.4-1.8 [facility] Comment on above: Performed By: #### P RTELEC #### [facility] [address] [place] [address] Dr. Richa Cheema Globulin (S) [Mass/Vol] 2.5 g/dL Normal 2.2-3.9 [facility] Comment on above: Performed By: #### P RTELEC #### [facility] [address] [place] [address] Dr. Richa Cheema M-Krystian Not Observed Normal Not Observed [facility] Comment on above: Performed By: #### P RTELEC #### [facility] [address] [place] [address] Dr. Richa Cheema PDF . Normal [facility] Comment on above: Performed By: #### P RTELEC #### [facility] [address] [place] [address] Dr. Richa Cheema Please note: Comment Normal [facility] Comment on above: Result Comment: Prot ein electrophoresis scan will follow via computer, mail, or digital imaging specialist delivery. Performed By: #### P RTELEC #### [facility] [address] [address] [address] Richa Cheema Protein [Mass/Vol] 6.3 g/dL Normal 6.0-8.5 [facility] Comment on above: Performed By: #### P RTELEC #### [facility] [address] [place], [place] [address] Dr. Richa Cheema Platelet mean volume Auto (B ld) [Entitic vol]Ordered By: Claire Choi on 05-31-2022 Platelet mean volume (Bld) [Entitic vol] 9.4 fL 6.3-10.7 [facility] Platelets Auto (Bld) [#/Vol] Ordered By: Claire Choi on 05-31-2022 Platelets (Bld) [#/Vol] 254 10*3/uL 150-450 [facility] Protein [Mass/volume] in Ser um or PlasmaOrdered By: Claire Choi on 05-31-2022 Protein [Mass/Vol] 6.2 g/dL 6.1-7.9 [facility] RBC Auto (Bld) [#/Vol]Ordere d By: Claire Choi on 05-31-2022 RBC (Bld) [#/Vol] 4.37 10*6/uL 3.60-5.00 [facility] Serum or plasma alanine genao otransferase measurement without P-5'-P (enzymatic activiOrdered By: Claire Choi on 05-31-2022 ALT No additional P-5'-P [Catalytic activity/Vol] 15 U/L 10-60 [facility] Serum or plasma albumin/glob ulin mass ratioOrdered By: Claire Choi on 05-31-2022 Albumin/Globulin [Mass ratio] 1.3 {ratio} [facility] Serum or plasma alkaline bree sphatase measurement (enzymatic activity/volume)Ordered By: Claire Choi on 05-31-2022 ALP [Catalytic activity/Vol] 90 U/L 32-92 [facility] Serum or plasma aspartate am inotransferase measurement (enzymatic activity/volume)Ordered By: Claire Choi on 05-31-2022 AST [Catalytic activity/Vol] 19 U/L 10-42 [facility] Serum or plasma calcium leonor urement (mass/volume)Ordered By: Claire Choi on 05-31-2022 Calcium [Mass/Vol] 8.9 mg/dL 8.2-10.2 [facility] Serum or plasma chloride trinidad surement (moles/volume)Ordered By: Claire Choi on 05-31-2022 Chloride [Moles/Vol] 106 mmol/L 95-114 [facility] Serum or plasma glucose leonor urement (mass/volume)Ordered By: Claire Choi on 05-31-2022 Glucose [Mass/Vol] 151 mg/dL 70-100 [facility] Comment on above: ADA recommended refe rence range Random Glucose Reference Range is dependent on time and content of last meal. Glucose of more than 200 mg/dL in a nonstressed, ambulatory subject supports the diagnosis of Diabetes Mellitus. Serum or plasma potassium me asurement (moles/volume)Ordered By: Claire Choi on 05-31-2022 Potassium [Moles/Vol] 4.9 mmol/L 3.5-5.1 [facility] Serum or plasma sodium measu rement (moles/volume)Ordered By: Claire Choi on 05-31-2022 Sodium [Moles/Vol] 135 mmol/L 136-146 [facility] Serum or plasma total biliru bin measurement (mass/volume)Ordered By: Claire Choi on 05-31-2022 Bilirubin [Mass/Vol] 0.7 mg/dL 0.3-1.2 [facility] Serum or plasma total carbon dioxide measurement (moles/volume)Ordered By: Claire Choi on 05-31-2022 CO2 [Moles/Vol] 20.9 mmol/L 22.0-30.0 [facility] Serum or plasma urea nitroge n measurement (mass/volume)Ordered By: Claire Choi on 05-31-2022 Urea nitrogen [Mass/Vol] 28 mg/dL 9-23 [facility] CBC AUTO DIFFon 05-28-2022 BASO # 0.0 103/ul Normal 0.0-0.1 [facility] Comment on above: Performed By: #### M G, RENAL, URIC #### [facility] [address] [address] [address] Richa Cheema Basophils/100 WBC (Bld) 0.4 % Normal 0.2-2.0 [facility] Comment on above: Performed By: #### M G, RENAL, URIC #### [facility] [address] [address] [address] Richa Cheema EO # 0.1 103/ul Normal 0.0-0.7 [facility] Comment on above: Performed By: #### M G, RENAL, URIC #### [facility] [address] [place] [address] Dr. Richa Cheema Eosinophils/100 WBC (Bld) 1.2 % Normal 0.9-7.0 [facility] Comment on above: Performed By: #### M G, RENAL, URIC #### [facility] [address] [address] [address] Richa Cheema Erythrocyte distribution width (RBC) [Ratio] 13.5 % Normal 11.0-15.0 [facility] Comment on above: Performed By: #### M G, RENAL, URIC #### [facility] [address] [address] [address] Richa Cheema Hematocrit (Bld) [Volume fraction] 41.3 % Normal 36.0-48.0 [facility] Comment on above: Performed By: #### M G, RENAL, URIC #### [facility] [address] [address] [address] Richa Cheema Hemoglobin (Bld) [Mass/Vol] 13.5 g/dL Normal 12.0-16.0 [facility] Comment on above: Performed By: #### M G, RENAL, URIC #### [facility] [address] [address] [address] Richa Cheema IG # 0.02 10e3/ul Normal 0.00-0.03 [facility] Comment on above: Performed By: #### M G, RENAL, URIC #### [facility] [address] [place] [address] Dr. Richa Cheema IG % 0.2 % Normal 0.0-0.5 [facility] Comment on above: Performed By: #### M G, RENAL, URIC #### [facility] [address] [place] [address] Dr. Richa Cheema LYMPH # 2.6 103/ul Normal 1.2-3.8 [facility] Comment on above: Performed By: #### M G, RENAL, URIC #### [facility] [address] [place] [address] Dr. Richa Cheema Lymphocytes/100 WBC (Bld) 32.0 % Normal 20.5-60.0 [facility] Comment on above: Performed By: #### M G, RENAL, URIC #### [facility] [address] [place] [address] Dr. Richa Cheema MANUAL DIFF REQ NO Normal [facility] Comment on above: Performed By: #### M G, RENAL, URIC #### [facility] [address] [place] [address] Dr. Richa Cheema MCH (RBC) [Entitic mass] 31.0 pg Normal 26.7-34.0 [facility] Comment on above: Performed By: #### M G, RENAL, URIC #### [facility] [address] [place] [address] Dr. Ricah Cheema MCHC (RBC) [Mass/Vol] 32.7 g/dL Normal 29.9-35.2 [facility] Comment on above: Performed By: #### M G, RENAL, URIC #### [facility] [address] [place] [address] Dr. Richa Cheema MCV (RBC) [Entitic vol] 94.7 fL Normal 81.0-99.0 [facility] Comment on above: Performed By: #### M G, RENAL, URIC #### [facility] [address] [place] [address] Dr. Richa Cheema MONO # 0.5 103/ul Normal 0.3-0.8 [facility] Comment on above: Performed By: #### M G, RENAL, URIC #### [facility] [address] [place] [address] Dr. Richa Cheema Monocytes/100 WBC (Bld) 5.7 % Normal 1.7-12.0 [facility] Comment on above: Performed By: #### M G, RENAL, URIC #### [facility] [address] [place] [address] Dr. Richa Cheema NEUT # 4.9 103/ul Normal 1.4-6.5 [facility] Comment on above: Performed By: #### M G, RENAL, URIC #### [facility] [address] [place] [address] Dr. Richa Cheema Neutrophils/100 WBC (Bld) 60.5 % Normal 43.0-75.0 [facility] Comment on above: Performed By: #### M G, RENAL, URIC #### [facility] [address] [place] [address] Dr. Richa Cheema Platelet mean volume (Bld) [Entitic vol] 10.6 fL Normal 9.5-13.5 [facility] Comment on above: Performed By: #### M G, RENAL, URIC #### [facility] [address] [place] [address] Dr. Richa Cheema PLT 229 103/ul Normal 150-450 [facility] Comment on above: Performed By: #### M G, RENAL, URIC #### [facility] Laboratory [address] [place] [place] [address] Dr. Richa Cheema RBC 4.36 106/ul Normal 4.20-5.40 [facility] Comment on above: Performed By: #### M G, RENAL, URIC #### [facility] [address] [place] [address] Dr. Richa Cheema WBC 8.1 103/ul Normal 4.0-11.0 [facility] Comment on above: Performed By: #### M G, RENAL, URIC #### [facility] [address] [place] [address] Dr. Richa Cheema GLYCOHEMOGLOBIN A1Con 2021 ADA RECOMMENDATION SEE BELOW Normal [facility] Comment on above: Result Comment: ADA RECOMMENDED LIMIT 4.0 - 6.0 ADA THERAPEUTIC TARGET < 7.0 ACTION SUGGESTED > 7.0 Performed By: #### H H #### [facility] [address] [address] [address] Richa Cheema Glucose [Mass/Vol] 166 mg/dL Normal [facility] Comment on above: Performed By: #### H H #### [facility] [address] [place] [address] Dr. Richa Cheema HbA1c (Bld) [Mass fraction] 7.4 % Critically high 4.5-6.2 [facility] Comment on above: Performed By: #### H H #### [facility] [address] [place] [address] Dr. Richa Cheema PROF 14(COMP METB)on 022 Albumin [Mass/Vol] 3.4 g/dL Normal 3.4-5.0 [facility] Comment on above: Performed By: #### M G, RENAL, URIC #### [facility] [address] [place] [address] Dr. Richa Cheema Albumin/Globulin [Mass ratio] 1.0 {ratio} Normal [facility] Comment on above: Performed By: #### M G, RENAL, URIC #### [facility] [address] [place] [address] Dr. Richa Cheema ALP [Catalytic activity/Vol] 111 U/L Normal 46-116 [facility] Comment on above: Performed By: #### M G, RENAL, URIC #### [facility] [address] [place] [address] Dr. Richa Cheema ALT [Catalytic activity/Vol] 21 U/L Normal 14-59 [facility] Comment on above: Performed By: #### M G, RENAL, URIC #### [facility] [address] [place] [address] Dr. Richa Cheema Anion gap [Moles/Vol] 14.1 mmol/L Normal [facility] Comment on above: Performed By: #### M G, RENAL, URIC #### [facility] [address] [address] [address] Richa Cheema AST [Catalytic activity/Vol] 13 U/L Critically low 15-37 [facility] Comment on above: Performed By: #### M G, RENAL, URIC #### [facility] [address] [place] [address] Dr. Richa Cheema Bilirubin [Mass/Vol] 0.3 mg/dL Normal 0.2-1.0 [facility] Comment on above: Performed By: #### M G, RENAL, URIC #### [facility] [address] [place] [address] Dr. Richa Cheema Calcium [Mass/Vol] 9.1 mg/dL Normal 8.5-10.1 [facility] Comment on above: Performed By: #### M G, RENAL, URIC #### [facility] [address] [place] [address] Dr. Richa Cheema Chloride [Moles/Vol] 107 mmol/L Normal 98-107 [facility] Comment on above: Performed By: #### M G, RENAL, URIC #### [facility] [address] [place] [address] Dr. Richa Cheema CO2 [Moles/Vol] 23.7 mmol/L Normal 21.0-32.0 [facility] Comment on above: Performed By: #### M G, RENAL, URIC #### [facility] [address] [place] [address] Dr. Richa Cheema Creatinine [Mass/Vol] 2.56 mg/dL Critically high 0.55-1.02 [facility] Comment on above: Performed By: #### M G, RENAL, URIC #### [facility] [address] [place] [address] Dr. Richa Cheema EGFR-AF CAMEROONIAN 22 mL/min/1.73m2 Critically low >=60 [facility] Comment on above: Performed By: #### M G, RENAL, URIC #### [facility] [address] [address] [address] Richa Cheema EGFR-NON AF CAMEROONIAN 18 mL/min/1.73m2 Critically low >=60 [facility] Comment on above: Performed By: #### M G, RENAL, URIC #### [facility] [address] [address] [address] Richa Cheema Globulin (S) [Mass/Vol] 3.4 g/dL Normal [facility] Comment on above: Performed By: #### M G, RENAL, URIC #### [facility] [address] [place] [address] Dr. Richa Cheema Glucose [Mass/Vol] 211 mg/dL Critically high 74-106 [facility] Comment on above: Performed By: #### M G, RENAL, URIC #### [facility] [address] [place] [address] Dr. Richa Cheema Potassium [Moles/Vol] 4.8 mmol/L Normal 3.5-5.1 [facility] Comment on above: Performed By: #### M G, RENAL, URIC #### [facility] [address] [place] [address] Dr. Richa Cheema Protein [Mass/Vol] 6.8 g/dL Normal 6.4-8.2 [facility] Comment on above: Performed By: #### M G, RENAL, URIC #### [facility] [address] [place] [address] Dr. Richa Cheema Sodium [Moles/Vol] 140 mmol/L Normal 136-145 [facility] Comment on above: Performed By: #### M G, RENAL, URIC #### [facility] [address] [address] [address] Richa Cheema Urea nitrogen [Mass/Vol] 29.0 mg/dL Critically high 7.0-18 .0 [facility] Comment on above: Performed By: #### M G, RENAL, URIC #### [facility] [address] [place] [address] Dr. Richa Cheema Urea nitrogen/Creatinine [Mass ratio] 11.3 mg/mg Normal [facility] Comment on above: Performed By: #### M G, RENAL, URIC #### [facility] [address] [place], [place] [address] Dr. Richa Cheema Covid-19 PCR ([facility])on SARS-CoV-2 (COVID-19) RNA RADHA+probe Ql (Unsp spec) Detected Critically abnormal NOT DETECTED [facility] Comment on above: Result Comment: This test is not yet approved or cleared by the [place] FDA. When there are no FDA-approved or cleared tests available, and other criteria are met, FDA can make tests available under an emergency access mechanism called an Emergency Use Authorization (EUA). The EUA for this test is supported by the [employer] Mechan[employer] of Health and Human Service's (HHS's) declaration [...] longer be used). Performed By: #### C VDTBH #### [facility] [address] [place], [place] [address] Dr. Richa Cheema XR LSPINE MIN 4 VIEWSon XR LSPINE MIN 4 VIEWS EXAMINATION: XR LS PINE MIN 4 VIEWS HISTORY: Musculoskeletal symptom ; [...] DIANN IBANEZ Date: 2022-04-14 11:25 Normal [facility] CT HEAD WO CONon 04-07-2022 [...] DIANN IBANEZ Date: 2022-04-07 15:47 Normal [facility] - Chemistry and C hemistry - challengeOrdered By: Akin Suarez on 09-07-2021 Magnesium [Mass/Vol] 2.0 mg/dL 1.6-2.6 [facility] No Panel InformationOrdered By: Akin Suarez on 09-07-2021 25-Hydroxy Vitamin D Total 38.5 ng/mL 30-100 [facility] Comment on above: VITAMIN D [...] on 09-07-2021 Phosphate [Mass/Vol] 3.7 mg/dL 2.5-4.6 [facility] Serum or plasma intact parat hyroid hormone measurement (mass/volume)Ordered By: Akin Suarez on 09-07-2021 Parathyrin.intact [Mass/Vol] 137.7 pg/mL High 12-88 [facility] Serum or plasma uric acid me asurement (mass/volume)Ordered By: Akin Suarez on 09-07-2021 Urate [Mass/Vol] 4.8 mg/dL 2.6-7.2 [facility] Tobacco Screening.on 021 Fall risk assessment a) No falls within the last year [facility] [employer] steffany 250 DO Work Phone: Tobacco use status CPHS b) No [facility] [employer] 250 DO Work Phone: CT biopsyOrdered By: Mike sweet on 06-09-2021 CT biopsy 24 Hours [facility] IgA [Mass/volume] in Serum o r PlasmaOrdered By: Mike Bradley on 06-09-2021 IgA [Mass/Vol] 65 mg/dL 64-422 [facility] IgG [Mass/volume] in Serum o r PlasmaOrdered By: Mike Bradley on 06-09-2021 IgG [Mass/Vol] 654 mg/dL 586-1602 [facility] IgM [Mass/volume] in Serum o r PlasmaOrdered By: Mike Bradley on 06-09-2021 IgM [Mass/Vol] 23 mg/dL 26-217 [facility] Comment on above: Result confirmed on concentration. Performed at: [facility] [address] [place], [place] [id number] Hand Stapler: Elpidio Delgado PhD, Phone: [phone] Result confirmed on concentration.Performed at: [employer] [id number] Director: Elpidio Delgado PhD, Phone: [phone] Immunofixation for UrineOrde red By: Mike Bradley on 06-09-2021 Interpretation Immunofixation (U) [Interp] See comment Abnormal . [facility] Comment on above: Bence Jenkins Protein positive; kappa type. Performed at: - [facility] [address] [place], [place] [id number] Hand Stapler: Elpidio Delgado PhD, Phone: [phone] Bence Jenkins Protein positive; kappa type.Performed at: [facility] Center[facility] [place], [place] [id number] Director: Elpidio Deglado PhD, Phone: [phone] No Panel InformationOrdered By: Mike Bradley on 06-09-2021 Serum Immunofixation See comment . [facility] Comment on above: Immunofixation shows IgG monoclonal protein with kappa light chain specificity. Please note that samples from patients receiving DARZALEX(R) (daratumumab) treatment can appear as an IgG kappa and mask a complete response. If this patient is receiving IRMA, this HAILEE assay interference can be removed by ordering test number [id number]- Immunofixation, Daratumumab- Specific, Serum and submitting a [...] interference can be removedby ordering test number [id number]- Immunofixation, Daratumumab-Specific, Serum and submitting a new sample for testing orby calling the lab to add this test to the current sample. Urine Albumin 24 Hours 33.2 % . [facility] Urine Xiogb-1-Zwpjcxsa 4.3 % . [facility] Urine Ygzbb-2-Ehgvvbitm 16.0 % . [facility] Urine Beta Globulin 36.7 % . [facility] Urine Gamma Globulin 9.8 % . [facility] Urine IEP M-Krystian % 24 Hr 21.1 % High Not Observed [facility] Urine Random Prot Electrophor Note See comment . [facility] Comment on above: Protein electrophore sis scan will follow via computer, mail, or digital imaging specialist delivery. Protein electrophore sis scan will follow via computer,mail, or digital imaging specialist delivery. Protein [Mass/time] in 24 ho ur UrineOrdered By: Mike Bradley on 06-09-2021 Protein (24H U) [Mass/Time] 125 mg/24 hr 30-150 [facility] Protein [Mass/volume] in Uri neOrdered By: Mike Bradley on 06-09-2021 Protein (U) [Mass/Vol] 8.5 mg/dL Not Estab. Fi [facility] Protein.monoclonal [Mass/junaid e] in 24 hour Urine by ElectrophoresisOrdered By: Mike Bradley on 06-09-2021 Protein.monoclonal Elph (24H U) [Mass/Time] 26.5 mg/24 hr High Not Observed [facility] Urine volume measurementOrde red By: Mike Bradley on 06-09-2021 Specimen volume (U) 1475 ml [facility] Urine culture routineon 02-12 Bacteria identified Cx Nom (U) Pseudomonas aeruginosa [facility] Automated epithelial cells c ount in urine sediment (number/area)on 02-24-2021 Epithelial cells Auto (Urine sed) [#/Area] 0-1 [HPF] 0-2 [facility] Automated erythrocytes count in urine sediment (number/area)on 02-24-2021 RBC Auto (Urine sed) [#/Area] Innumerable [HPF] 0-4 [facility] Automated leukocytes count i n urine sediment (number/area)on 02-24-2021 WBC Auto (Urine sed) [#/Area] 0-1 [HPF] 0-4 [facility] Automated urine specific gra vity by refractometryon 02-24-2021 Specific gravity Refractometry automated (U) [Rel density] 1.009 1.001-1.03 0 [facility] Comment on above: Rechecked by refract ometer Bilirubin Test strip Ql (U)o n 02-24-2021 Bilirubin Ql (U) See comment Negative [facility] Comment on above: Unable to obtain acc urate result due to color interference. Color Auto (U)on 02-24-2021 Color (U) Red Yellow [facility] Creatinine [Mass/volume] in Urineon 02-24-2021 Creatinine (U) [Mass/Vol] 77.2 mg/dL [facility] Comment on above: No reference range e stablished Ketones Auto test strip (U) [Mass/Vol]on 02-24-2021 Ketones (U) [Mass/Vol] See comment Negative [facility] Comment on above: Unable to obtain acc urate result due to color interference. Nitrite Test strip Ql (U)on 02-24-2021 Nitrite Ql (U) See comment Negative [facility] Comment on above: Unable to obtain acc urate result due to color interference. Protein Auto test strip (U) [Mass/Vol]on 02-24-2021 Protein (U) [Mass/Vol] See comment Negative [facility] Comment on above: Unable to obtain acc urate result due to color interference. Urine bacteria detection by automated methodon 02-24-2021 Bacteria Auto Ql (U) None seen None Seen [facility] Urine clarity by refractomet ry automatedon 02-24-2021 Clarity Refractometry automated (U) Turbid Clear [facility] Urine culture routineon 02-12 Bacteria identified Cx Nom (U) Pseudomonas aeruginosa Abnormal [facility] Bacteria identified Cx Nom (U) Pseudomonas aeruginosa Abnormal [facility] Urine glucose measurement by automated test strip (mass/volume)on 02-24-2021 Glucose Auto test strip (U) [Mass/Vol] See comment Normal [facility] Comment on above: Unable to obtain acc urate result due to color interference. Urine hemoglobin detection b y automated test stripon 02-24-2021 Hemoglobin Auto test strip Ql (U) See comment Negative [facility] Comment on above: Unable to obtain acc urate result due to color interference. Urine leukocyte esterase det ection by automated test stripon 02-24-2021 Leukocyte esterase Auto test strip Ql (U) See comment Negative [facility] Comment on above: Unable to obtain acc urate result due to color interference. Urine protein/creatinine rat ioon 02-24-2021 Protein/Creatinine (U) [Ratio] 2098 mg/g{Cre} High 0-200 [facility] Urobilinogen Auto test strip (U) [Mass/Vol]on 02-24-2021 Urobilinogen (U) [Mass/Vol] See comment Normal [facility] Comment on above: Unable to obtain acc urate result due to color interference. pH Auto test strip (U)on pH (U) See comment 5.0-9.0 [facility] Comment on above: Unable to obtain acc urate result due to color interference. Laboratory - Chemistry and C hemistry - challengeon 10-28-2020 Cobalamin (Vitamin B12) [Mass/Vol] 506 pg/mL 180-914 [facility] Laboratory - Hematology and Cell countson 10-28-2020 WBC (Bld) [#/Vol] 10.0 10*3/uL 4.5-11.0 [facility] Laboratory - Urinalysison Hyaline casts LM Ql (Urine sed) 0-8 [LPF] 0-8 [facility] Urine culture routineon Bacteria identified Cx Nom (U) bacilli - 1 Day [facility] Serum intrinsic factor block ing antibody detection by radioimmunoassay (MAGGIE)on 02-28-2019 Intrinsic factor blocking Ab MAGGIE Ql (S) 0.9 AU/mL 0.0-1.1 [facility] Comment on above: Performed at: [facility] [address] [id number] Hand Stapler: Britton Valente MD, Phone: [phone] Performed at: [facility] [address] [id number] Director: Britton Valente MD, Phone: [phone] Serum parietal cell antibody assay (units/volume)on 02-28-2019 Parietal cell Ab Qn (S) 1.9 Units 0.0-20.0 [facility] Comment on above: Negative 0.0 - 20.0 Equivocal 20.1 - 24.9 Positive >24.9 Parietal Cell Antibodies are found in 90% of patients with pernicious anemia and 30% of first degree relatives with pernicious anemia. Performed at: [facility] [id number] Hand Stapler: Elpidio Delgado PhD, Phone: [phone] Negative 0.0 - 20.0 Equivocal 20.1 - 24.9 Positive >24.9Parietal Cell Antibodies are found in 90% of patientswith pernicious anemia and 30% of first degreerelatives with pernicious anemia.Performed at: [facility] [address] [id number] Director: Elpidio Delgado PhD, Phone: [phone] Glucose Glucometer (BldC) [M ass/Vol]on 01-02-2019 Glucose [Mass/Vol] 133 mg/dL [facility] Comment on above: Random Glucose Refer ence Range is dependent on time and content of last meal. Glucose of more than 200 mg/dL in a nonstressed, ambulatory subject supports the diagnosis of Diabetes Mellitus. Glucose mean value [Mass/vol ume] in Blood Estimated from glycated hemoglobinon 01-02-2019 Average glucose Estimated from glycated hemoglobin (Bld) [Mass/Vol] 183 mg/dL [facility] HbA1c (Bld)on 01-02-2019 HbA1c (Bld) [Mass fraction] 8.0 % 4.3-5.6 [facility] Comment on above: Increased risk for d iabetes: 5.7 - 6.4 diabetes: >6.4 glycemic control for adults with diabetes: <7.0 Increased risk for d iabetes: 5.7 - 6.4diabetes: >6.4glycemic control for adults with diabetes: <7.0 IgA [Mass/volume] in Serum o r Plasmaon 10-13-2018 IgA [Mass/Vol] 65 mg/dL 64-422 [facility] IgG [Mass/volume] in Serum o r Plasmaon 10-13-2018 IgG [Mass/Vol] 487 mg/dL Low 700-1600 [facility] IgM [Mass/volume] in Serum o r Plasmaon 10-13-2018 IgM [Mass/Vol] 38 mg/dL 26-217 [facility] Comment on above: Performed at: [facility] [address] [place], [place] [id number] Hand Stapler: Elpidio Delgado PhD, Phone: [phone] Performed at: [facility] [address] [id number] Director: Elpidio Delgado PhD, Phone: [phone] Serum or plasma 25-hydroxyca lciferol measurement (mass/volume)on 09-15-2017 25-hydroxyvitamin D2 [Mass/Vol] <1.0 ng/mL . [facility] Serum or plasma calcidiol me asurement (mass/volume)on 09-15-2017 25-hydroxyvitamin D3 [Mass/Vol] 65 ng/mL . [facility] Comment on above: Performed at: [facility] [address] [place], [place] [id number] Hand Stapler: Marcelino Estes MD, Phone: [phone] Performed at: [facility] [address] [place], [place] [id number] Director: Marcelino Estes MD, Phone: [phone] Vital Signs Date Time Vital Sign Value Performing Clinician Facility 09-19-2024 15:07-0500 Body height 167.64 cm MD Curt Clark Work Phone: [facility] 09-19-2024 11:38-0500 Body temperature 98 [degF] MD Curt Clark Work Phone: [facility] 09-19-2024 11:38-0500 Diastolic blood pressure 76 mm[Hg] MD Curt Clark Work Phone: [facility] 09-19-2024 11:38-0500 Heart rate 86 /min MD Curt Clark Work Phone: [facility] 09-19-2024 11:38-0500 SaO2% (BldA) [Mass fraction] 98 % MD Curt Clark Work Phone: [facility] 09-19-2024 11:38-0500 Systolic blood pressure 128 mm[Hg] MD Curt Clark Work Phone: [facility] 09-19-2024 07:31-0500 Respiratory rate 20 /min MD Curt Clark Work Phone: [facility] 09-19-2024 05:34-0500 Body weight 90.3 kg MD Curt Clark Work Phone: [facility] 09-18-2024 00:38-0500 Diastolic blood pressure 57 mm[Hg] MD Curt Clark Work Phone: [facility] 09-18-2024 00:38-0500 Heart rate 90 /min MD Curt Clark Work Phone: [facility] 09-18-2024 00:38-0500 Respiratory rate 20 /min MD Curt Clark Work Phone: [facility] 09-18-2024 00:38-0500 SaO2% (BldA) [Mass fraction] 96 % MD Curt Clark Work Phone: [facility] 09-18-2024 00:38-0500 Systolic blood pressure 131 mm[Hg] MD Curt Clark Work Phone: [facility] 09-17-2024 20:43-0500 Body height 167.64 cm MD Curt Clark Work Phone: [facility] 09-17-2024 20:43-0500 Body temperature 98.2 [degF] MD Curt Clark Work Phone: [facility] 09-17-2024 20:43-0500 Body weight 89.25 kg MD Curt Clark Work Phone: [facility] 08-20-2024 10:48-0400 Body mass index (BMI) [Ratio] 31 kg/m2 MD Curt Clark Work Phone: [facility] 08-20-2024 10:48-0400 Diastolic blood pressure 68 mm[Hg] MD Curt Clark Work Phone: [facility] 08-20-2024 10:48-0400 Systolic blood pressure 164 mm[Hg] MD Curt Clark Work Phone: [facility] 08-20-2024 10:25-0400 Body height 171.45 cm MD Curt Clark Work Phone: [facility] 08-20-2024 10:25-0400 Body weight 91.22 kg MD Curt Clark Work Phone: [facility] 08-20-2024 10:25-0400 Heart rate 70 /min MD Curt Clark Work Phone: [facility] 08-20-2024 10:25-0400 Respiratory rate 16 /min MD Curt Clark Work Phone: [facility] 08-20-2024 10:25-0400 SaO2% (BldA) [Mass fraction] 97 % MD Curt Clark Work Phone: [facility] 08-17-2024 15:22-0400 Body height 172.09 cm MD Curt Clark Work Phone: [facility] 08-17-2024 15:22-0400 Body mass index (BMI) [Ratio] 30.6 kg/m2 MD Curt Clark Work Phone: [facility] 08-17-2024 15:22-0400 Body temperature 98.2 [degF] MD Curt Clark Work Phone: [facility] 08-17-2024 15:22-0400 Body weight 90.71 kg MD Curt Clark Work Phone: [facility] 08-17-2024 15:22-0400 Diastolic blood pressure 76 mm[Hg] MD Curt Clark Work Phone: [facility] 08-17-2024 15:22-0400 Heart rate 78 /min MD Curt Clark Work Phone: [facility] 08-17-2024 15:22-0400 Respiratory rate 20 /min MD Curt Clark Work Phone: [facility] 08-17-2024 15:22-0400 SaO2% (BldA) [Mass fraction] 97 % MD Curt Clark Work Phone: [facility] 08-17-2024 15:22-0400 Systolic blood pressure 180 mm[Hg] MD Curt Clark Work Phone: [facility] 07-05-2024 13:06-0400 Body height 172.09 cm MD Curt Clark Work Phone: [facility] 07-05-2024 13:06-0400 Body mass index (BMI) [Ratio] 30.3 kg/m2 MD Curt Clark Work Phone: [facility] 07-05-2024 13:06-0400 Body temperature 96.9 [degF] MD Curt Clark Work Phone: [facility] 07-05-2024 13:06-0400 Body weight 89.81 kg MD Curt Clark Work Phone: [facility] 07-05-2024 13:06-0400 Diastolic blood pressure 84 mm[Hg] MD Curt Clark Work Phone: [facility] 07-05-2024 13:06-0400 Heart rate 79 /min MD Curt Clark Work Phone: [facility] 07-05-2024 13:06-0400 Respiratory rate 16 /min MD Curt Clark Work Phone: [facility] 07-05-2024 13:06-0400 SaO2% (BldA) [Mass fraction] 97 % MD Curt Clark Work Phone: [facility] 07-05-2024 13:06-0400 Systolic blood pressure 139 mm[Hg] MD Curt Clark Work Phone: [facility] 05-31-2024 11:10-0400 Body height 172.09 cm MD Curt Clark Work Phone: [facility] 05-31-2024 11:10-0400 Body mass index (BMI) [Ratio] 67.1 kg/m2 MD Curt Clark Work Phone: [facility] 05-31-2024 11:10-0400 Body mass index (BMI) [Ratio] 30.3 kg/m2 MD Curt Clark Work Phone: [facility] 05-31-2024 11:10-0400 Body weight 199 kg MD Curt Clark Work Phone: [facility] 05-31-2024 11:10-0400 Body weight 89.81 kg MD Curt Clark Work Phone: [facility] 05-31-2024 11:10-0400 Diastolic blood pressure 63 mm[Hg] MD Curt Clark Work Phone: [facility] 05-31-2024 11:10-0400 Heart rate 68 /min MD Curt Clark Work Phone: [facility] 05-31-2024 11:10-0400 Systolic blood pressure 151 mm[Hg] MD Curt Clark Work Phone: [facility] 04-17-2024 13:55-0400 Body height 162.6 cm Elicia Rhodes MD Work Phone: [facility] 04-17-2024 13:55-0400 Body mass index (BMI) [Ratio] 34.33 kg/m2 Elicia Rhodes MD Work Phone: [facility] 04-17-2024 13:55-0400 Body weight 90.72 kg Elicia Rhodes MD Work Phone: [facility] 04-17-2024 13:55-0400 Diastolic blood pressure 66 mm[Hg] Elicia Rhodes MD Work Phone: [facility] 04-17-2024 13:55-0400 Heart rate 68 /min Elicia Rhodes MD Work Phone: [facility] 04-17-2024 13:55-0400 Systolic blood pressure 128 mm[Hg] Elicia Rhodes MD Work Phone: [facility] 04-12-2024 09:27-0400 Body height 172.09 cm MD Curt Clark Work Phone: [facility] 04-12-2024 09:27-0400 Body mass index (BMI) [Ratio] 30.4 kg/m2 MD Curt Clark Work Phone: [facility] 04-12-2024 09:27-0400 Body weight 90.03 kg MD Curt Clark Work Phone: [facility] 04-12-2024 09:27-0400 Diastolic blood pressure 77 mm[Hg] MD Curt Clark Work Phone: [facility] 04-12-2024 09:27-0400 Heart rate 65 /min MD Curt Clark Work Phone: [facility] 04-12-2024 09:27-0400 Systolic blood pressure 166 mm[Hg] MD Curt Clark Work Phone: [facility] 01-27-2024 15:01-0400 Body temperature 97.8 [degF] MD Curt Clark Work Phone: [facility] 01-27-2024 15:01-0400 Body weight 90.71 kg MD Curt Clark Work Phone: [facility] 01-27-2024 15:01-0400 Diastolic blood pressure 76 mm[Hg] MD Curt Clark Work Phone: [facility] 01-27-2024 15:01-0400 Heart rate 64 /min MD Curt Clark Work Phone: [facility] 01-27-2024 15:01-0400 Respiratory rate 16 /min MD Curt Clark Work Phone: [facility] 01-27-2024 15:01-0400 SaO2% (BldA) [Mass fraction] 99 % MD Curt Clark Work Phone: [facility] 01-27-2024 15:01-0400 Systolic blood pressure 140 mm[Hg] MD Curt Clark Work Phone: [facility] 01-04-2024 10:59-0500 Body height 167 cm MD Curt Clark Work Phone: [facility] 01-04-2024 10:59-0500 Body mass index (BMI) [Ratio] 32.5 kg/m2 MD Curt Clark Work Phone: [facility] 01-04-2024 10:59-0500 Body weight 90.88 kg MD Curt Clark Work Phone: [facility] 01-04-2024 10:59-0500 Diastolic blood pressure 77 mm[Hg] MD Curt Clark Work Phone: [facility] 01-04-2024 10:59-0500 Heart rate 71 /min MD Curt Clark Work Phone: [facility] 01-04-2024 10:59-0500 Respiratory rate 18 /min MD Curt Clark Work Phone: [facility] 01-04-2024 10:59-0500 SaO2% (BldA) [Mass fraction] 98 % MD Curt Clark Work Phone: [facility] 01-04-2024 10:59-0500 Systolic blood pressure 133 mm[Hg] MD Curt Clark Work Phone: [facility] 12-01-2023 11:00-0500 Body height 166.55 cm Curt Clark Other [facility] 12-01-2023 11:00-0500 Body mass index (BMI) [Ratio] 32.77 kg/m2 Curt Clark Other [facility] [employer] Other 12-01-2023 11:00-0500 Body weight 90.9 kg Curt Clark Other [facility] [employer] Other 12-01-2023 11:00-0500 Body weight 90.89 kg MD Curt Clark Work Phone: [facility] 12-01-2023 11:00-0500 Diastolic blood pressure 76 mm[Hg] Curt Clark Other [facility] 12-01-2023 11:00-0500 Systolic blood pressure 125 mm[Hg] Curt Clark Other [facility] 11-02-2023 10:34-0500 Body height 162.[address] 11-02-2023 10:34-0500 Body mass index (BMI) [Ratio] 33.3 kg/m2 [address] 11-02-2023 10:34-0500 Body weight [address] 11-02-2023 10:34-0500 Diastolic blood pressure 74 mm[Hg] [address] 11-02-2023 10:34-0500 Systolic blood pressure 140 mm[Hg] [address] 10-04-2023 14:04-0500 Body height 167.6 cm Elicia Rhodes MD Work Phone: [facility] 10-04-2023 14:04-0500 Body mass index (BMI) [Ratio] 31.31 kg/m2 Elicia Rhodes MD Work Phone: [facility] 10-04-2023 14:04-0500 Body weight 88 kg Elicia Rhodes MD Work Phone: [facility] 10-04-2023 14:04-0500 Diastolic blood pressure 68 mm[Hg] Elicia Rhodes MD Work Phone: [facility] 10-04-2023 14:04-0500 Heart rate 72 /min Elicia Rhodes MD Work Phone: [facility] 10-04-2023 14:04-0500 Systolic blood pressure 138 mm[Hg] Elicia Rhodes MD Work Phone: [facility] 09-26-2023 14:00-0500 Body height 166.55 cm Curt Clark Other [employer] Other 09-26-2023 14:00-0500 Body mass index (BMI) [Ratio] 31.43 kg/m2 Curt Clark Other [employer] Other 09-26-2023 14:00-0500 Body weight 87.18 kg Curt Clark Other [employer] Other 09-26-2023 14:00-0500 Diastolic blood pressure 73 mm[Hg] Curt Clark Other [employer] Other 09-26-2023 14:00-0500 SaO2% (BldA) [Mass fraction] 98 % Curt Clark Other [employer] Other 09-26-2023 14:00-0500 Systolic blood pressure 122 mm[Hg] Curt Clark Other [employer] Other 09-13-2023 15:45-0400 Body height 166.55 cm Curt Clark Other [employer] Other 09-13-2023 15:45-0400 Body mass index (BMI) [Ratio] 31.39 kg/m2 Curt Clark Other [employer] Other 09-13-2023 15:45-0400 Body temperature 97.1 [degF] Curt Clark Other [employer] Other 09-13-2023 15:45-0400 Body weight 87.09 kg Curt Clark Other [employer] Other 09-13-2023 15:45-0400 Diastolic blood pressure 75 mm[Hg] Curt Clark Other [employer] Other 09-13-2023 15:45-0400 Systolic blood pressure 148 mm[Hg] Curt Clark Other [facility] [employer] Other 08-31-2023 13:30-0400 Body height 166.55 cm Nehemias Fernandez II Other [employer] Other 08-31-2023 13:30-0400 Body mass index (BMI) [Ratio] 31.56 kg/m2 Nehemias Fernandez II Other [employer] Other 08-31-2023 13:30-0400 Body weight 87.54 kg Nehemias Fernandez II Other [employer] Other 07-19-2023 10:44-0400 Body height 167.64 cm MD Curt Clark Work Phone: [facility] 07-19-2023 10:40-0400 Body temperature 97.5 [degF] MD Curt Clark Work Phone: [facility] 07-19-2023 10:40-0400 Body weight 85.95 kg MD Curt Clark Work Phone: [facility] 07-19-2023 10:40-0400 Diastolic blood pressure 69 mm[Hg] MD Curt Clark Work Phone: [facility] 07-19-2023 10:40-0400 Heart rate 79 /min MD Curt Clark Work Phone: [facility] 07-19-2023 10:40-0400 Respiratory rate 20 /min MD Curt Clark Work Phone: [facility] 07-19-2023 10:40-0400 SaO2% (BldA) [Mass fraction] 98 % MD Curt Clark Work Phone: [facility] 07-19-2023 10:40-0400 Systolic blood pressure 134 mm[Hg] MD Curt Clark Work Phone: [facility] 06-24-2023 13:30-0400 Body height 166.55 cm Curt Clark Other [employer] Other 06-24-2023 13:30-0400 Body mass index (BMI) [Ratio] 30.58 kg/m2 Curt Clark Other [employer] Other 06-24-2023 13:30-0400 Body weight 84.82 kg Curt Clark Other [employer] Other 06-24-2023 13:30-0400 Diastolic blood pressure 79 mm[Hg] Curt Clark Other [employer] Other 06-24-2023 13:30-0400 SaO2% (BldA) [Mass fraction] 97 % Curt Clark Other [employer] Other 06-24-2023 13:30-0400 Systolic blood pressure 127 mm[Hg] Curt Clark Other [employer] Other 06-23-2023 11:20-0400 Body height 166.55 cm Akin Lopez Other [employer] Other 06-23-2023 11:20-0400 Body temperature 96.5 [degF] Akin Lopez Other [employer] Other 06-23-2023 11:20-0400 Diastolic blood pressure 82 mm[Hg] Akin Lopez Other [employer] Other 06-23-2023 11:20-0400 Respiratory rate 20 /min Akin Lopez Other [employer] Other 06-23-2023 11:20-0400 SaO2% (BldA) [Mass fraction] 98 % Akin Lopez Other [employer] Other 06-23-2023 11:20-0400 Systolic blood pressure 149 mm[Hg] Akin Lopez Other [employer] Other 04-26-2023 11:30-0400 Body height 166.37 cm Curt Clark Other [employer] Other 04-26-2023 11:30-0400 Body mass index (BMI) [Ratio] 31.13 kg/m2 Curt Clark Other [employer] Other 04-26-2023 11:30-0400 Body weight 86.18 kg Curt Clark Other [employer] Other 04-26-2023 11:30-0400 Diastolic blood pressure 68 mm[Hg] Curt Clark Other [employer] Other 04-26-2023 11:30-0400 Systolic blood pressure 109 mm[Hg] Curt Clark Other [employer] Other 03-23-2023 14:10-0400 Body height 167.64 cm Curt Clark Work Phone: [employer] DO Work Phone: 03-23-2023 14:10-0400 Body mass index (BMI) [Ratio] 31.15 kg/m2 Curt Clark Work Phone: [employer] DO Work Phone: 03-23-2023 14:10-0400 Body surface area Derived from formula 1.97 m2 Curt Clark Work Phone: [facility] [employer] DO Work Phone: 03-23-2023 14:10-0400 Body weight 87.54 kg Curt Clark Work Phone: [facility] [employer] DO Work Phone: 03-23-2023 14:10-0400 Diastolic blood pressure 68 mm[Hg] Curt Clark Work Phone: [facility] [employer] DO Work Phone: 03-23-2023 14:10-0400 Heart rate 68 /min Curt Clark Work Phone: [facility] [employer] DO Work Phone: 03-23-2023 14:10-0400 Systolic blood pressure 102 mm[Hg] Curt Clark Work Phone: [facility] [employer] DO Work Phone: 03-15-2023 12:00-0400 Body height 166.37 cm Curt Clark Other [facility] [facility] [employer] Other 03-15-2023 12:00-0400 Body mass index (BMI) [Ratio] 31.95 kg/m2 Curt Clark Other [facility] [facility] [employer] Other 03-15-2023 12:00-0400 Body weight 88.45 kg Curt Clark Other [facility] [facility] [employer] Other 03-15-2023 12:00-0400 Diastolic blood pressure 60 mm[Hg] Curt Clark Other [employer] Other 03-15-2023 12:00-0400 Systolic blood pressure 124 mm[Hg] Curt Clark Other [employer] Other 02-21-2023 11:06-0400 75.6 1 Curt Clark Work Phone: [facility] [address] DO Work Phone: Comment on above: [facility] 01-11-2023 10:37-0500 Body temperature 97.8 [degF] MD Curt Clark Work Phone: [facility] 01-11-2023 10:37-0500 Body weight 88.2 kg MD Curt Clark Work Phone: [facility] 01-11-2023 10:37-0500 Diastolic blood pressure 63 mm[Hg] MD Curt Clark Work Phone: [facility] 01-11-2023 10:37-0500 Heart rate 66 /min MD Curt Clark Work Phone: [facility] 01-11-2023 10:37-0500 Respiratory rate 16 /min MD Curt Clark Work Phone: [facility] 01-11-2023 10:37-0500 SaO2% (BldA) [Mass fraction] 97 % MD Curt Clark Work Phone: [facility] 01-11-2023 10:37-0500 Systolic blood pressure 139 mm[Hg] MD Curt Clark Work Phone: [facility] 01-10-2023 11:11-0500 Blood Pressure Location Tyree PARK [facility] 01-10-2023 11:11-0500 Diastolic blood pressure 84 mm[Hg] Tyree PARK [facility] 01-10-2023 11:11-0500 Heart rate 80 /min Tyree PARK [facility] 01-10-2023 11:11-0500 Respiratory rate 16 /min Tyree PARK [facility] 01-10-2023 11:11-0500 Systolic blood pressure 136 mm[Hg] Tyree PARK [facility] 12-22-2022 12:40-0500 Body height 166.37 cm Akin Lopez Other [employer] Other 12-22-2022 12:40-0500 Body mass index (BMI) [Ratio] 31.53 kg/m2 Akin Lopez Other [employer] Other 12-22-2022 12:40-0500 Body temperature 96.5 [degF] Akin Lopez Other [employer] Other 12-22-2022 12:40-0500 Body weight 87.27 kg Akin Lopez Other [employer] Other 12-22-2022 12:40-0500 Diastolic blood pressure 78 mm[Hg] Akin Lopez Other [employer] Other 12-22-2022 12:40-0500 Respiratory rate 18 /min Akin Lopez Other [employer] Other 12-22-2022 12:40-0500 SaO2% (BldA) [Mass fraction] 98 % Akin Lopez Other [employer] Other 12-22-2022 12:40-0500 Systolic blood pressure 122 mm[Hg] Akin Lopez Other [employer] Other 12-09-2022 11:45-0500 Body height 166.37 cm Curt Clark Other [employer] Other 12-09-2022 11:45-0500 Body mass index (BMI) [Ratio] 31.95 kg/m2 Curt Clark Other [employer] Other 12-09-2022 11:45-0500 Body weight 88.45 kg Curt Clark Other [employer] Other 12-09-2022 11:45-0500 Diastolic blood pressure 62 mm[Hg] Curt Clark Other [employer] Other 12-09-2022 11:45-0500 SaO2% (BldA) [Mass fraction] 96 % Curt Clark Other [employer] Other 12-09-2022 11:45-0500 Systolic blood pressure 128 mm[Hg] Curt Clark Other [employer] Other 07-13-2022 09:12-0400 Body weight 84.5 kg MD Curt Clark Work Phone: [facility] 07-13-2022 08:58-0400 Body height 167.64 cm MD Curt Clark Work Phone: [facility] 07-13-2022 08:58-0400 Body temperature 98.6 [degF] MD Curt Clark Work Phone: [facility] 07-13-2022 08:58-0400 Diastolic blood pressure 74 mm[Hg] MD Curt Clark Work Phone: [facility] 07-13-2022 08:58-0400 Heart rate 89 /min MD Curt Clark Work Phone: [facility] 07-13-2022 08:58-0400 Respiratory rate 18 /min MD Curt Clark Work Phone: [facility] 07-13-2022 08:58-0400 SaO2% (BldA) [Mass fraction] 97 % MD Curt Clark Work Phone: [facility] 07-13-2022 08:58-0400 Systolic blood pressure 126 mm[Hg] MD Curt Clark Work Phone: [facility] 07-07-2022 10:20-0400 Body height 167.64 cm Akin Lopez Other [employer] Other 07-07-2022 10:20-0400 Body mass index (BMI) [Ratio] 30.24 kg/m2 Akin Lopez Other [employer] Other 07-07-2022 10:20-0400 Body temperature 96.7 [degF] Akin Lopez Other [employer] Other 07-07-2022 10:20-0400 Body weight 85 kg Akin Lopez Other [employer] Other 07-07-2022 10:20-0400 Diastolic blood pressure 76 mm[Hg] Akin Lopez Other [employer] Other 07-07-2022 10:20-0400 Respiratory rate 18 /min Akin Lopez Other [employer] Other 07-07-2022 10:20-0400 SaO2% (BldA) [Mass fraction] 98 % Akin Lopez Other [employer] Other 07-07-2022 10:20-0400 Systolic blood pressure 132 mm[Hg] Akin Lopez Other [employer] Other 06-16-2022 14:48-0400 Body height 167.64 cm Curt Clark Work Phone: [facility] [address] DO Work Phone: 06-16-2022 14:48-0400 Body mass index (BMI) [Ratio] 30.18 kg/m2 Curt Clark Work Phone: [facility] 250 DO Work Phone: 06-16-2022 14:48-0400 Body surface area Derived from formula 1.94 m2 Curt Clark Work Phone: [facility] [address] DO Work Phone: 06-16-2022 14:48-0400 Body weight 84.82 kg Curt Clark Work Phone: [facility] [address] DO Work Phone: 06-16-2022 14:48-0400 Diastolic blood pressure 58 mm[Hg] Curt Clark Work Phone: [facility] [address] DO Work Phone: 06-16-2022 14:48-0400 Heart rate 70 /min Curt Clark Work Phone: [facility] [address] DO Work Phone: 06-16-2022 14:48-0400 Systolic blood pressure 112 mm[Hg] Curt Clark Work Phone: [facility] [address] DO Work Phone: 03-08-2022 10:57-0400 Blood Pressure Location Tyree PARK [facility] 03-08-2022 10:57-0400 Diastolic blood pressure 52 mm[Hg] Tyree PARK [facility] 03-08-2022 10:57-0400 Heart rate 69 /min Tyree PARK [facility] 03-08-2022 10:57-0400 Systolic blood pressure 113 mm[Hg] Tyree PARK [facility] 01-14-2022 13:20-0500 Body height 167.64 cm Akin Lopez Other [employer] Other 01-14-2022 13:20-0500 Body mass index (BMI) [Ratio] 30.34 kg/m2 Akin Lopez Other [employer] Other 01-14-2022 13:20-0500 Body weight 85.28 kg Akin Lopez Other [employer] Other 01-14-2022 13:20-0500 Diastolic blood pressure 86 mm[Hg] Akin Lopez Other [employer] Other 01-14-2022 13:20-0500 Respiratory rate 18 /min Akin Lopez Other [employer] Other 01-14-2022 13:20-0500 SaO2% (BldA) [Mass fraction] 99 % Akin Lopez Other [employer] Other 01-14-2022 13:20-0500 Systolic blood pressure 146 mm[Hg] Akin Lopez Other [employer] Other 09-30-2021 11:40-0500 Body height 167.64 cm Akin Lopez Other [employer] Other 09-30-2021 11:40-0500 Body mass index (BMI) [Ratio] 31.12 kg/m2 Akin Lopez Other [employer] Other 09-30-2021 11:40-0500 Body temperature 96.7 [degF] Akin Lopez Other [employer] Other 09-30-2021 11:40-0500 Body weight 87.45 kg Akin Lopez Other [employer] Other 09-30-2021 11:40-0500 Diastolic blood pressure 72 mm[Hg] Akin Lopez Other [employer] Other 09-30-2021 11:40-0500 Respiratory rate 18 /min Akin Lopez Other [employer] Other 09-30-2021 11:40-0500 SaO2% (BldA) [Mass fraction] 96 % Akin Lopez Other [employer] Other 09-30-2021 11:40-0500 Systolic blood pressure 111 mm[Hg] Akin Lopez Other [employer] Other 09-22-2021 10:38-0500 89.4 1 Curt Clark Work Phone: [facility] [employer] DO Work Phone: Comment on above: [facility] 08-25-2021 14:44-0400 Body height 167.64 cm Curt Clark Work Phone: [employer] DO Work Phone: 08-25-2021 14:44-0400 Body mass index (BMI) [Ratio] 30.67 kg/m2 Curt Clark Work Phone: [facility] [address] DO Work Phone: 08-25-2021 14:44-0400 Body surface area Derived from formula 1.96 m2 Curt Clark Work Phone: [facility] [address] DO Work Phone: 08-25-2021 14:44-0400 Body weight 86.18 kg Curt Clark Work Phone: [facility] [address] DO Work Phone: 08-25-2021 14:44-0400 Diastolic blood pressure 74 mm[Hg] Curt Clark Work Phone: [facility] [address] DO Work Phone: 08-25-2021 14:44-0400 Heart rate 68 /min Curt Clark Work Phone: [facility] [address] DO Work Phone: 08-25-2021 14:44-0400 Systolic blood pressure 126 mm[Hg] Curt Clark Work Phone: [facility] [address] DO Work Phone: Encounters Encounter Date Encounter Type Care Provider Facility Start: 01-07-2025 ambulatory Tyree Ulloa ty:[facility] Start: 09-19-2024 Non-patient / Non-visit MD Shannan Clark Work Phone: [facility] Work Phone: Start: 09-18-2024 Non-patient / Non-visit MD Shannan Clark Work Phone: [facility] Work Phone: Start: 09-18-2024 End: 09-19-2024 ambulatory Curt Clark Facility:[facility] Start: 09-18-2024 End: 09-19-2024 Evaluation and management of inpatient MD Cutr Clrak Work Phone: [facility] Work Phone: Start: 09-18-2024 End: 09-19-2024 observation encounter MD Curt Clark Work Phone: [facility] Work Phone: Start: 09-14-2024 Non-patient / Non-visit MD Shannan Clark Work Phone: [facility] Work Phone: Start: 09-14-2024 End: 09-17-2024 Clinisync Result Encounter Temo PETERSON Work Phone: [facility] Unsolicited Start: 09-14-2024 End: 09-17-2024 Clinisync Result Encounter Temo PETERSON Work Phone: [facility] Unsolicited Start: 08-20-2024 End: 08-20-2024 ambulatory MD Curt Clark Work Phone: [facility] Work Phone: Start: 08-20-2024 End: 08-20-2024 Patient encounter procedure MD Curt Clark Work Phone: [facility] Work Phone: Start: 08-20-2024 Non-patient / Non-visit MD Shannan Clark Work Phone: [facility] Work Phone: Start: 08-17-2024 End: 08-17-2024 ambulatory MD Curt Clark Work Phone: [facility] Work Phone: Start: 08-17-2024 End: 08-17-2024 Patient encounter procedure MD Curt Clark Work Phone: [facility] Work Phone: Start: 08-01-2024 ambulatory Curt Clark Facility :[facility] Start: 08-01-2024 Registered Recurring MD Curt Clark Work Phone: [facility] Work Phone: Start: 07-05-2024 End: 07-05-2024 ambulatory MD Curt Clark Work Phone: [facility] Work Phone: Start: 07-05-2024 End: 07-05-2024 Patient encounter procedure MD Curt Clark Work Phone: [facility] Work Phone: Start: 06-27-2024 Non-patient / Non-visit MD Shannan Clark Work Phone: [facility] Work Phone: Start: 06-06-2024 Registered Recurring MD Curt Clark Work Phone: [facility] Work Phone: Start: 05-31-2024 End: 05-31-2024 ambulatory MD Curt Clark Work Phone: [facility] Work Phone: Start: 05-31-2024 End: 05-31-2024 Patient encounter procedure MD Curt Clark Work Phone: [facility] Work Phone: Start: 05-23-2024 Non-patient / Non-visit MD Shannan Clark Work Phone: [facility] Work Phone: Start: 04-25-2024 Registered Recurring MD Curt Clark Work Phone: [facility] Work Phone: Start: 04-17-2024 End: 04-17-2024 Office outpatient visit 25 minutes Elicia Rhodes MD Work Phone: [facility] Comment on above: Essential hypertensi on (Primary Dx); Persistent atrial fibrillation with RVR (Multi); Aortic valve regurgitation, nonrheumatic; Ascending aorta dilation (CMS-HCC); Mixed hyperlipidemia; Pulmonary hypertension (Multi); Stage 3a chronic kidney disease (Multi); Multiple myeloma, remission status unspecified (Multi); Shortness of breath at rest; BMI 34.0-34.9,adult; Never smoked tobacco Start: 04-17-2024 End: 04-17-2024 ambulatory [facility] Start: 04-12-2024 End: 04-12-2024 Departed Referred MD Curt Clark Work Phone: [facility] [place] Work Phone: Start: 04-12-2024 End: 04-12-2024 ambulatory MD Curt Clark Work Phone: [facility] Work Phone: Start: 04-12-2024 End: 04-12-2024 Patient encounter procedure MD Curt Clark Work Phone: [facility] Phys[facility] Work Phone: Start: 03-14-2024 End: 03-14-2024 ambulatory ARTEMIO NICCI Not Available Start: 02-28-2024 Registered Recurring MD Curt Clark Work Phone: [facility] Work Phone: Start: 02-15-2024 Non-patient / Non-visit MD Shannan Clark Work Phone: [facility] Work Phone: Start: 01-27-2024 End: 01-27-2024 ambulatory MD Curt Clark Work Phone: [facility] Work Phone: Start: 01-27-2024 End: 01-27-2024 Patient encounter procedure MD Curt Clark Work Phone: [facility] Work Phone: Start: 01-27-2024 Registered Recurring MD Curt Clark [facility] Work Phone: Start: 01-09-2024 End: 01-10-2024 ambulatory Tyree PARK Facility:[facility] Start: 01-04-2024 End: 01-04-2024 ambulatory MD Curt Clark Work Phone: [facility] Work Phone: Start: 01-04-2024 End: 01-04-2024 Patient encounter procedure MD Curt Clark Work Phone: [facility] Work Phone: Start: 12-27-2023 Non-patient / Non-visit MD Shannan Clark Work Phone: [facility] Work Phone: Start: 12-15-2023 Registered Recurring MD Curt Clark Work Phone: [facility] Work Phone: Start: 12-02-2023 End: 12-02-2023 ambulatory Curt Clark Other [facility] [employer] Other Start: 12-02-2023 Telephone encounter Curt Clark [facility] Start: 12-01-2023 End: 12-01-2023 ambulatory Curt Clark Other [facility] [employer] Other Start: 12-01-2023 Office outpatient vi sit 25 minutes Curt Clark [facility] Start: 12-01-2023 End: 12-01-2023 Patient encounter procedure MD Curt Clark Work Phone: [facility]ly [facility] Physician [facility]- Start: 11-02-2023 End: 11-02-2023 Subsequent hospital visit by physician Jodi Bell Echo/Vasc Room 2 [facility] Comment on above: Aortic valve regurgi tation, nonrheumatic; Ascending aorta dilation (CMS/HCC); Pulmonary hypertension (CMS/HCC) Start: 11-02-2023 End: 11-02-2023 ambulatory [facility] Start: 10-17-2023 End: 10-17-2023 ambulatory Curt Clark Other [employer] Other Start: 10-17-2023 Telephone encounter Curt Clark [facility] Start: 10-13-2023 End: 10-13-2023 ambulatory Curt Clark Other [employer] Other Start: 10-13-2023 Telephone encounter Curt Clark [facility] Start: 10-04-2023 End: 10-04-2023 Office outpatient visit 25 minutes Elicia Rhodes MD Work Phone: [facility] Comment on above: Persistent atrial fi brillation with RVR (CMS/HCC) (Primary Dx); Aortic valve regurgitation, nonrheumatic; Ascending aorta dilation (CMS/HCC); Essential hypertension; Pulmonary hypertension (CMS/HCC); Stage 3a chronic kidney disease (CMS/HCC) Start: 10-04-2023 End: 10-04-2023 ambulatory [facility] Start: 09-26-2023 End: 09-26-2023 ambulatory Curt Clark Other [employer] Other Start: 09-26-2023 Office outpatient vi sit 15 minutes Curt Clark [facility] Start: 09-13-2023 End: 09-13-2023 ambulatory Curt Clark Other [employer] Other Start: 09-13-2023 Office outpatient vi sit 15 minutes Curt Clark [facility] Start: 08-31-2023 Office outpatient ne w 45 minutes Nehemias Fernadnez II [facility] Start: 08-31-2023 End: 08-31-2023 ambulatory MD Cutr Clark Work Phone: [facility] Work Phone: Start: 08-31-2023 End: 08-31-2023 Patient encounter procedure MD Curt Clark Work Phone: [facility] Start: 07-21-2023 Rx Renewal Curt Clark Work Phone: [facility] 250 DO Work Phone: Start: 07-19-2023 End: 07-19-2023 ambulatory MD Curt Clark Work Phone: [facility] Work Phone: Start: 07-19-2023 End: 07-19-2023 Registered Recurring MD Curt Clark Work Phone: [facility] Work Phone: Start: 07-19-2023 Registered Recurring MD Curt Clark Work Phone: [facility] Work Phone: Start: 07-15-2023 End: 07-15-2023 ambulatory Curt Clark Other [employer] Other Start: 07-15-2023 Telephone encounter Curt Clark [facility] Start: 07-08-2023 End: 07-08-2023 ambulatory Curt Clark Other [employer] [facility] [employer] Other Start: 07-08-2023 Telephone encounter Curt Clark [facility] Start: 07-04-2023 Rx Renewal Curt Clark Work Phone: [facility] 250 DO Work Phone: Start: 06-27-2023 End: 06-27-2023 ambulatory Curt Clark Other [facility] [employer] Other Start: 06-27-2023 Telephone encounter Curt Clark [facility] Start: 06-24-2023 End: 06-24-2023 ambulatory Curt Clark Other [employer] Other Start: 06-24-2023 Office outpatient vi sit 25 minutes Curt Clark [facility] Start: 06-23-2023 End: 06-23-2023 ambulatory Akin Lopez Other [employer] Other Start: 06-23-2023 Office outpatient vi sit 15 minutes Akin Lopez [facility] Start: 06-20-2023 End: 06-20-2023 ambulatory Curt Clark Other [employer] Other Start: 06-20-2023 Telephone encounter Curt Clark [facility] Start: 06-13-2023 Rx Renewal Curt Clark Work Phone: [facility] [employer] 697 DO Work Phone: Start: 05-04-2023 End: 05-04-2023 ambulatory Curt Clark Other [employer] Other Start: 05-04-2023 Telephone encounter Curt Clark [facility] Start: 04-26-2023 End: 04-26-2023 ambulatory Curt Clark Other [employer] Other Start: 04-26-2023 Office outpatient vi sit 25 minutes Curt Clark [facility] Start: 03-23-2023 Office outpatient vi sit 25 minutes Curt Clark Work Phone: [facility] [employer] 250 DO Work Phone: Start: 03-23-[address] Curt Clark Facility: Start: 03-16-2023 Telephone encounter Curt Clark [facility] Start: 03-16-2023 End: 03-17-[address] CURT CLARK [employer] Other Start: 03-15-2023 End: 03-15-2023 ambulatory Curt Clark Other [employer] Other Start: 03-15-2023 Office outpatient vi sit 15 minutes Curt Clark [facility] Start: 02-21-2023 End: 02-22-[address] ELICIA RHODES Facility:H1 Start: 01-11-2023 End: 01-11-2023 ambulatory MD Curt Clark Work Phone: [facility] Work Phone: Start: 01-11-2023 End: 01-11-2023 Registered Recurring MD Curt Clark Work Phone: [facility] Work Phone: Start: 01-10-2023 End: 01-10-2023 Patient encounter procedure Tyree PARK [facility] Start: 01-06-2023 End: 01-07-[address] CURT CLARK Facility:[facility]1 Start: 12-22-2022 End: 12-22-2022 ambulatory Akin Lopez Other [employer] Other Start: 12-22-2022 Office outpatient vi sit 25 minutes Akin Lopez [facility] Start: 12-14-2022 End: 12-15-2022 ambulatory AKIN LOPEZ Facility:[facility]1 Start: 12-09-2022 End: 12-09-2022 ambulatory Curt Clark Other [employer] Other Start: 12-09-2022 Office outpatient vi sit 25 minutes Curt Clark [facility] Start: 08-09-[address] CURT CLARK Facil ity:H1 Start: 07-13-2022 End: 07-13-2022 Registered Recurring MD Curt Clark Work Phone: [facility] Start: 07-12-2022 End: 07-13-2022 ambulatory CLAIRE Dayan CHOI Facility:[facility]1 Start: 07-07-2022 End: 07-07-2022 ambulatory Akin Lopez Other [facility] [employer] Other Start: 07-07-2022 Office outpatient vi sit 25 minutes Akin Lopez [facility] Start: 06-30-2022 End: 07-01-2022 ambulatory AKNI LOPEZ Facility:[facility]1 Start: 06-16-2022 Office outpatient vi sit 25 minutes Curt Clark Work Phone: [facility] 250 DO Work Phone: Start: 06-16-[address] Elicia Rhodes Facility: Start: 05-28-2022 End: 05-29-[address] CURT CLARK Facility:H1 Start: 05-25-2022 End: 05-25-[address] CURT CLARK Facility:[facility]1 Start: 05-21-2022 End: 05-21-[address] CURT CLARK Facility:[facility]1 Start: 04-14-2022 End: 04-15-[address] CURT CLARK Facility:[facility]1 Start: 04-07-2022 End: 04-08-2022 ambulatory ZO SOLER Facility:[facility]1 Start: 03-08-2022 End: 03-08-2022 Patient encounter procedure Tyree PARK [facility] Start: 02-25-2022 Rx Renewal Curt Clark Work Phone: [facility] 250 DO Work Phone: Start: 02-23-2022 End: 02-23-2022 ambulatory Akin Lopez Other [facility] [employer] Other Start: 02-23-2022 Telephone encounter Akin Lopez [facility] Start: 01-14-2022 End: 01-14-2022 ambulatory Akin Lopez Other [facility] [employer] Other Start: 01-14-2022 Office outpatient vi sit 25 minutes Akin Lopez [facility] Oli Start: 10-12-2021 Rx Renewal Curt Clark Work Phone: [facility] [employer] 250 DO Work Phone: Start: 09-30-2021 End: 09-30-2021 ambulatory Akin Lopez Other [facility] [employer] Other Start: 09-30-2021 Office outpatient vi sit 25 minutes Akin Lopez [facility] Start: 09-30-2021 Telephone encounter Akin Lopez [facility] Start: 08-25-2021 Office outpatient vi sit 25 minutes Curt Clark Work Phone: [facility] etechies.inusky 250 DO Work Phone: Start: 07-02-2021 End: 07-02-2021 ambulatory Tondra Mapus Other [facility] [employer] Other Start: 07-02-2021 Telephone encounter Tondra Mapus [facility] Procedures Date Procedure Procedure Detail Performing Clinician Start: 09-17-2024 CT of head without contrast MD Curt Clark Work Phone: Start: 09-17-2024 Plain chest X-ray MD Julee Clark Work Phone: Start: 09-14-2024 Bacteria identified in Urine by Culture Temo PETERSON Work Phone: Start: 04-12-2024 Urine culture MD Curt Clark Work Phone: Start: 11-02-2023 TRANSTHORACIC ECHO ( TTE) COMPLETE ELICIA RHODES Start: 11-02-2023 Echo tthrc r-t 2d w/ wom-mode compl spec&colr d Elicia Rhodes MD Work Phone: Start: 10-04-2023 ECG 12-LEAD ELICIA ORO JOSE MANUEL Start: 10-04-2023 Ecg routine ecg w/le ast 12 lds w/i&r Elicia Rhodes MD Work Phone: Start: 02-24-2021 Bacteria identified in Urine by Culture MD Curt Clark Work Phone: Start: 02-24-2021 Urine culture MD Curt Clark Work Phone: Start: 02-19-2021 Lithotripsy Tyree CYNDI TERDaniella Start: 02-13-2020 Bacteria identified in Urine by Culture MD Curt Clark Work Phone: Start: 02-13-2020 Urine culture MD Curt Clark [...] surgery Curt walton Work Phone: Cholecystectomy Tyree WATE RS Excision of ganglion of wrist Tyree PARK Hemorrhoidectomy Curt E Br aun Work Phone: Hemorrhoidectomy Tyree HUTCHINSON Hysterectomy Curt Clark Work Phone: Hysterectomy Tyree PARK Lithotripsy Curt Clark Work Phone: Operative procedure on foot Curt Clark Work Phone: Urine culture MD Curt forde Work Phone: Plan of Treatment Date Care Activity Detail Author Start: 11-20-2024 End: 11-20-2024 Patient encounter procedure 11/20/2024 1:30 PM EST Office Visit [facility] [address] [place] [id number] Liberty Rossi MD [address] [place] [address] [facility] Start: 10-15-2024 End: 10-15-2024 Patient encounter procedure 10/15/2024 11:20 AM EST Office Visit [facility] [address] [facility] [address] [place] [address] Elicia Rhodes MD [address] [place] [address] [facility] Start: 09-19-2024 [facility] Start: 09-19-2024 Administration of prophylactic treatment [facility] Start: 09-19-2024 End: 09-19-2024 Patient encounter procedure 09/19/2024 9:40 AM EST Office Visit [facility] [address] [place] [address] Artemio Grajeda NP [address] [place], [place] [id number] [facility] Start: 09-18-2024 End: 09-18-2024 Referral to rehabilitation physician [facility] Start: 09-18-2024 End: 09-18-2024 [facility] Start: 09-18-2024 Physical therapy procedure [facility] Start: 09-18-2024 Referral to occupational therapist [facility] Start: 09-18-2024 End: 09-18-2024 [facility] Start: 09-18-2024 Hospital admission [facility] Start: 07-15-2024 Influenza vaccination Influenza Vaccine (Season Ended) [facility] Start: 04-17-2024 End: 04-17-2025 Lipid 1996 panel - Serum or Plasma Lipid Panel Lab Routine Mixed hyperlipidemia Expected: 04/17/2024 (Approximate), Expires: 04/17/2025 [facility] Service Area Work Phone: Comment on above: Expected: 04/17/2024 (Approximate), Expi res: 04/17/2025 Start: 04-17-2024 End: 04-17-2024 Patient encounter procedure 04/17/2024 1:40 PM EDT Office Visit [address] [place] [id number] Elicia Rhodes MD [address] [facility] [address] [place] [address] [facility] Start: 04-13-2024 Bacteria identified in Urine by Culture [facility] Start: 04-12-2024 Bacteria identified in Urine by Culture [facility] Start: 11-08-2023 Glaucoma screening Diabetes: Retinopathy Screening [facility] Start: 11-02-2023 End: 11-02-2023 Patient encounter procedure 11/02/2023 10:45 AM EST Appointment [place] [id number] [facility] [address] [place] [address] [facility] Start: 10-04-2023 FUV, Provider: Elicia Rhodes, Status: Pen, Time: 2:10 PM FUV, Provider: Elicia Rhodes, Status: Pen, Time: 2:10 PM [facility] [facility] 250 DO Work Phone: Start: 10-04-2023 End: 10-04-2025 Heart Transthoracic Transthoracic Echo (TTE) Complete Echocardiography Routine Aortic valve regurgitation, nonrheumatic Ascending aorta dilation (CMS/HCC) Pulmonary hypertension (CMS/HCC) Expected: 10/04/2023 (Approximate), Expires: 10/04/2025 [facility] Service Area Work Phone: Comment on above: Expected: 10/04/2023 (Approximate), Expi res: 10/04/2025 Start: 07-19-2023 [facility] Start: 07-15-2023 Influenza vaccination Influenza Vaccine (#1) [facility] Start: 03-23-2023 FUV, Provider: Elicia Rhodes, Status: Pen, Time: 2:20 PM FUV, Provider: Elicia Rhodes, Status: Pen, Time: 2:20 PM [facility] 250 DO Work Phone: Start: 01-04-2023 [facility] Start: 08-23-2022 [facility] Start: 08-17-2022 End: 08-17-2022 [facility] Start: 07-13-2022 [facility] Start: 06-28-2022 [facility] Start: 05-31-2022 [facility] Start: 05-26-2022 [facility] Start: 05-25-2022 FUV, Provider: Elicia Rhodes, Status: Pen, Time: 2:20 PM [facility] 250 DO Work Phone: Start: 04-13-2022 [facility] Start: 03-02-2022 [facility] Start: 01-18-2022 [facility] Start: 01-18-2022 [facility] Start: 01-18-2022 End: 01-18-2022 [facility] Start: 01-18-2022 [facility] Start: 01-11-2022 [facility] Start: 12-23-2021 [facility] Start: 12-23-2021 [facility] Start: 11-03-2021 [facility] Start: 10-06-2021 [facility] Start: 09-08-2021 [facility] Start: 08-25-2021 [facility] Start: 08-11-2021 [facility] Start: 08-11-2021 [facility] Start: 07-14-2021 [facility] Start: 07-14-2021 [facility] Start: 07-09-2021 End: 07-09-2021 [facility] Start: 06-16-2021 [facility] Start: 05-19-2021 End: 05-19-2021 [facility] Start: 05-19-2021 [facility] Start: 04-21-2021 [facility] Start: 04-09-2021 [facility] Start: 03-24-2021 [facility] Start: 02-24-2021 [facility] Start: 01-12-2021 End: 01-12-2021 [facility] Start: 01-06-2021 [facility] Start: 01-01-2021 [facility] Start: 12-02-2020 [facility] Start: 11-04-2020 [facility] Start: 10-07-2020 [facility] Start: 09-09-2020 [facility] Start: 08-12-2020 [facility] Start: 07-15-2020 [facility] Start: 06-17-2020 [facility] Start: 05-20-2020 [facility] Start: 04-16-2020 [facility] Start: 03-19-2020 [facility] Start: 01-09-2020 [facility] Start: 01-09-2020 [facility] Start: 01-03-2020 [facility] Start: 11-27-2019 End: 11-28-2019 [facility] Start: 10-29-2019 [facility] Start: 10-17-2019 [facility] Start: 09-05-2019 [facility] Start: 09-05-2019 [facility] Start: 07-25-2019 [facility] Start: 07-25-2019 [facility] Start: 06-13-2019 [facility] Start: 06-13-2019 [facility] Start: 05-02-2019 [facility] Start: 04-04-2019 [facility] Start: 03-07-2019 [facility] Start: 02-07-2019 [facility] Start: 01-10-2019 [facility] Start: 11-15-2018 [facility] Start: 10-18-2018 [facility] Start: 09-20-2018 [facility] Start: 08-23-2018 [facility] Start: 07-12-2018 [facility] Start: 06-14-2018 [facility] Start: 05-18-2018 [facility] Start: 05-09-2018 [facility] Start: 04-19-2018 [facility] Start: 03-22-2018 [facility] Start: 02-15-2018 [facility] Start: 01-18-2018 [facility] Start: 12-21-2017 [facility] Start: 08-24-2017 [facility] Start: 07-27-2017 [facility] Start: 2002 RSV patients and/or patients aged 60+ years (1 - 1-dose 60+ series) RSV patients and/or patients aged 60+ years (1 - 1-dose 60+ series) [facility] Start: 1964 DTaP/Tdap/Td Vaccines (1 - Tdap) DTaP/Tdap/Td Vaccines (1 - Tdap) [facility] Start: 1961 Urine screening for protein Diabetes: Urine Protein Screening [facility] Start: 1961 Zoster Vaccines (1 of 2) Zoster Vaccines (1 of 2) [facility] Start: 1952 Diabetic foot examination Diabetes: Foot Exam [facility] Start: 1948 Pneumococcal Vaccine: 65+ Years (1 - PCV) Pneumococcal Vaccine: 65+ Years (1 - PCV) [facility] Start: 1948 Pneumococcal Vaccine: 65+ Years (1 of 2 - PCV) Pneumococcal Vaccine: 65+ Years (1 of 2 - PCV) [facility] Start: 1947 COVID-19 Vaccine (#1) COVID-19 Vaccine (#1) [facility] Start: 1942 Hemoglobin A1c measurement Diabetes: Hemoglobin A1C [facility] Start: 1942 Lipid panel Lipid Panel [facility] Start: 1942 Medicare Annual Wellness Visit Medicare Annual Wellness Visit (AWV) [facility] Start: 1942 Yearly Adult Physical Yearly Adult Physical [facility] Anion gap measurement [facility] Basophils [#/volume] in Blood by Automated count [facility] Basophils/100 leukocytes in Blood by Automated count [facility] Comprehensive metabo lic 2000 panel - Serum or Plasma [facility] Work Phone: Comprehensive metabo lic 2000 panel - Serum or Plasma [facility] Comprehensive metabo lic 2000 panel - Serum or Plasma [facility] Comprehensive metabo lic 2000 panel - Serum or Plasma [facility] Comprehensive metabo lic 2000 panel - Serum or Plasma [facility] DXA Skeletal system.axial Views for bone density [facility] Work Phone: DXA Skeletal system.axial Views for bone density [facility] Eosinophils/100 leukocytes in Blood by Automated count [facility] Erythrocyte distribution width [Ratio] by Automated count [facility] Erythrocytes [#/volu me] in Blood [facility] Hematocrit [Volume Fraction] of Blood [facility] Hemoglobin [Mass/volume] in Blood [facility] Leukocytes [#/volume ] corrected for nucleated erythrocytes in Blood by Automated coun [facility] Leukocytes [#/volume ] in Blood [facility] Lymphocytes [#/volum e] in Blood by Automated count [facility] Lymphocytes/100 leukocytes in Blood by Automated count [facility] MCH [Entitic mass] b y Automated count [facility] MCHC [Mass/volume] b y Automated count [facility] MCV [Entitic volume] by Automated count [facility] Monocytes [#/volume] in Blood by Automated count [facility] Monocytes/100 leukocytes in Blood by Automated count [facility] Neutrophils [#/volum e] in Blood by Automated count [facility] Neutrophils/100 leukocytes in Blood by Automated count [facility] Nucleated erythrocyt es [Presence] in Blood by Automated count [facility] Patient Education Know your Meds [facility] Work Phone: Patient referral [facility] Work Phone: Platelet mean volume [Entitic volume] in Blood by Automated count [facility] Platelets [#/volume] in Blood [facility] Radiologic examinati on osseous survey [facility] Work Phone: Radiologic examinati on osseous survey [facility] Radiologic examinati on osseous survey [facility] Radiologic examinati on osseous survey [facility] Renal function 1999 panel - Serum or Plasma [facility] Renal function 1999 panel - Serum or Plasma [facility] End: 11-02-2023 US Heart Transthoracic [facility] Service Area Work Phone: Comment on above: Once for 1 Occurrences starting 11/02/20 until 11/02/2023 [facility] Payers Date Payer Category Payer Private Health Insurance [facility] [id number] 2022 Unknown [id number] 2021 Medicare [id number] 2010 Unknown 2010 Unknown [id number] 2007 Medicare [id number] 1959 Medicare [id number] [id number] 1959 Self-pay [id number] 1959 Unknown [id number] [id number] 1942 Unknown [id number] 2.16.840.1.578571.3.579. 2.593 1942 Unknown [id number] 2.16.840.1.722161.3.579. 2.593 1942 Unknown [id number] 2.16.840.1.403711.3.579. 2.593 1942 Unknown [id number] 2.16.840.1.950121.3.579. 2.593 1942 Unknown [id number] 2.16.840.1.759356.3.579. 2.593 1942 Unknown [id number] 2.16.840.1.020379.3.579. 2.593 1942 Unknown [id number] 2.16.840.1.215326.3.579. 2.593 1942 Unknown [id number] 2.16.840.1.935305.3.579. 2.593 1942 Unknown [id number] 2.16.840.1.850652.3.579. 2.593 1942 Unknown [id number] 2.16.840.1.221936.3.579. 2.593 1942 Unknown [id number] 2.16.840.1.916173.3.579. 2.593 1942 Unknown [id number] 2.16.840.1.261461.3.579. 2.593 1942 Unknown [id number] 2.16.840.1.198071.3.579. 2.593 1942 Unknown [id number] 2.16.840.1.212891.3.579. 2.593 1942 Unknown [id number] 2.16.840.1.666542.3.579. 2.356 1942 Unknown [id number] 2.16.840.1.159044.3.579. 2.356 1942 Unknown [id number] 2.16.840.1.817074.3.579. 2.727 1942 Unknown [id number] 2.16.840.1.628049.3.579. 2.727 1942 Unknown [id number] 2.16.840.1.910766.3.579. 2.727 1942 Unknown [id number] 2.16.840.1.358231.3.579. 2.1259 1942 Unknown [id number] 2.16.840.1.548791.3.579. 2.1244 1942 Unknown [id number] 2.16.840.1.708164.3.579. 2.1244 1942 Unknown [id number] 2.16.840.1.348668.3.579. 2.1246 Unknown [id number] 2.16.840.1.572745.3.579. 2.593 Unknown [id number] 2.16.840.1.651637.3.579. 2.531 Unknown [id number] 2.16.840.1.504528.3.579. 2.531 Unknown [id number] 2.16.840.1.204598.3.579. 2.531 Social History Date Type Detail Facility Start: 10-04-2023 End: 03-14-2024 Daily caffeine consumption, 2-3 servings a day Daily caffeine consumption, 2-3 servings a day -[facility] DO Work Phone: Start: 03-08-2022 End: 09-18-2024 Tobacco smoking status Never smoked tobacco (finding) [facility] Tobacco smoking status Never [facility] Start: 10-04-2023 End: 03-14-2024 Sex Assigned At Female [facility] Other Start: 1940 Sex Assigned At Female [facility] Start: 10-04-2023 End: 03-05-2024 Tobacco use and exposure Smokeless tobacco non-user [facility] Work Phone: Start: 10-04-2023 End: 03-14-2024 Alcohol intake Lifetime non-drinker (finding) [facility] Work Phone: Start: 1940 Sex Assigned At Not on file [facility] Work Phone: Start: 09-24-2023 End: 04-17-2024 Exposure to SARS-CoV-2 (event) Not sure [facility] Medical Equipment Procedure Code Equipment Code Equipment Origin al Text Equipment Identifier Dates Lancets 100 pack Start: 07-10-2018 Goals Date Patient Goal Desired Activity /State Functional Status Date Assessment Result Facility 09-19-2024 Functional status Patient at Baseline [facility] Work Phone: 01-10-2023 Functional Status N/A [facility] Mental Status Date Assessment Result Facility 09-19-2024 Cognitive function Cognitive Sta tus Patient at Baseline [facility] Work Phone: Clinical Notes 07-27-2017 to 09-18-2024 Note Date & Type Note Facility 09-18-2024 Consult note Note Date/Time September 18, 2024 11:34am [facility] [address] [place] [address] Physiatry (Rehab) Consult Note Signed Patient: Hailee Trivedi MR#: [id number] : 1940 Acct:[id number] Age/Sex: 84 / F Adm Date: 4 Loc: Room: [address] [place] [address] Type: ADM INOo Attending Dr: Trent Patterson MD Copies to: MD Cristiano Del Toro MD Marcia E Braun, MD~ HPI Consult Date: 09/18/24 Requesting Physician: Trent Patterson MD Primary Care Provider: Curt Clark MD Consult Narrative Reason for consult: Evaluation for inpatient rehab HPI: Ms. Trivedi is a 84 year old female with PMH of T2DM, chronic A-fib on rivaroxaban, CKD stage IV, HTN, CVA, multiple myeloma in remission who presentedto the hospital due to weakness and debility. The patient had COVID-19 about 2 weeks prior to admission and has since not been feeling well. She had also recently been to [facility] and was diagnosed with a UTI. Workup in the ED demonstrated some chronic findings, but otherwise was mostly noncontributory. the patient was admitted for observation due to weakness/debility. I met with the patient this morning. She was lying in bed and appeared very fatigued. She denied any fever, chill, SOB, abdominal pain. Had some chest pain earlier and received sublingual nitro but has no chest pain now. She was able towork with therapy and had some significant deficits. I discussed discharge planning with the patient. She lives with her and has 3 steps to get into her house. Prior to getting COVID, she was independent. She is agreeable to placement at discharge. Review of Systems Review of Systems All other systems reviewed & are negative unless noted below or in HPI [facility] Medical History Multiple myeloma Type 2 diabetes mellitus with [...] HTN (hypertension) Multiple myeloma Hyperlipidemia Surgical History Hx of lithotripsy History of renal stent History of hemorrhoidectomy History of cholecystectomy History of hysterectomy Family History Brother Hypertension Legacy FamHx Relation: Brother(s) Daughter Heart disease Legacy FamHx Relation: Daughter(s) Father Mother History of stroke Legacy FamHx Problem: Diagnosed with Stroke Diabetes Heart disease Son Heart disease Cancer Legacy FamHx Problem: Diagnosed with Cancer Diabetes Sister Diabetes Social History Smoking Status: Never smoker Substance Use Type: None Meds Medications and Allergies Allergies lenalidomide [From Revlimid] Allergy (Mild, Verified 09/17/24 20:43) Rash, itching oxybutynin Allergy (Unknown, Verified 09/17/24 20:43) Rash, rash, hives pregabalin [From Lyrica] Allergy (Unknown, Verified 09/17/24 20:43) double vision Home Medications sodium bicarbonate 650 mg tablet 650 mg PO BID 07/14/17 [History Confirmed 09/17/24] cholecalciferol (vitamin D3) 125 mcg (5,000 unit) tablet (Vitamin D3) 1,000 unitPO DAILY 08/10/18 [History Confirmed 09/17/24] atorvastatin 40 mg tablet 40 mg PO DAILY 08/23/18 [History Confirmed 09/17/24] aspirin 81 mg chewable tablet 81 mg PO DAILY 10/18/18 [History Confirmed 09/17/24] cyanocobalamin (vitamin B-12) 1,000 mcg tablet 1,000 mcg PO DAILY 05/02/19 [History Confirmed 09/17/24] carvedilol 12.5 mg tablet (Coreg) 12.5 mg PO BID 30 days #60 tabs 11/07/19 [Rx Confirmed 09/17/24] rivaroxaban 15 mg tablet (Xarelto) 15 mg PO DAILY 30 days #30 tabs 11/07/19 [Rx Confirmed 09/17/24] acyclovir 400 mg tablet See Rx Instructions .Route .COMPLEX #180 tabs 01/02/24 [Rx Confirmed 09/17/24] insulin NPH isoph U-100 human 100 unit/mL subcutaneous suspension (Humulin N NPHU-100 Insulin (isophane susp)) 15 unit subcut BID 07/05/24 [History Confirmed 09/17/24] omega 4-ipq-bmi-fish oil 1,000 mg (120 mg-180 mg) capsule (Fish Oil) 1 cap PO Q48HR 07/05/24 [History Confirmed 09/17/24] sodium citrate-citric acid 490 mg-640 mg/5 mL oral solution (Oracit) 10 ml PO QHS PRN Kidney stones 07/05/24 [History Confirmed 09/17/24] amlodipine 5 mg tablet 5 mg PO DAILY #90 tabs 08/20/24 [Rx Confirmed 09/17/24] apixaban 5 mg tablet (Eliquis) 5 mg PO BID #360 tabs 09/18/24 [Rx] Exam Physical Exam Vital Signs: Temp Pulse Resp BP Pulse Ox O2 Del Method 97.9 F 94 18 119/73 96 Room Air 09/18/24 08:00 09/18/24 08:00 09/18/24 08:00 09/18/24 08:00 09/18/24 08:00 09/18/24 08:00 Narrative: Gen: Awake, oriented, cooperative. Appears fatigued HEENT: Atraumatic, PERRL, EOMI Resp: No respiratory distress Cardio: Extremities well perfused MSK: Moves all extremities spontaneously. Strength grossly 5/5 in BUE/BLE Neuro: CN grossly intact Skin: No swelling, erythema, ecchymosis appreciated Psych: Mood and affect normal Results - Phys. Rehab Labs Labs: Laboratory Results - last 24 hr 09/17/24 09/17/24 09/17/24 20:46 21:16 21:56 Corrected WBC 12.0 H Uncorrected WBC Count 12.0 H RBC 3.77 Hgb 12.0 Hct 36.0 MCV 95.5 MCH 31.8 MCHC 33.3 RDW 14.3 Plt Count 143 L MPV 10.3 Neut % (Auto) 87.9 Lymph % (Auto) 4.8 [place] % (Auto) 4.9 Eos % (Auto) 2.1 Baso % (Auto) 0.3 Nucleat RBC Rel Count 0.0 Neut # (Auto) 10.6 H Lymph # (Auto) 0.6 L [place] # (Auto) 0.6 Eos # (Auto) 0.3 Baso # (Auto) 0.0 Monocyte Dist Width 29.77 H Platelet Estimate Normal Plt Morphology Comment Normal RBC Morphology Normal PT 17.3 H INR 1.5 APTT 30.4 Sample Site VBG pH VBG pCO2 VBG HCO3 VBG Total CO2 VBG O2 Saturation VBG Base Excess FiO2 Critical Value PHA Creatinine Clear 18.35 Sodium 136 Potassium 3.9 Chloride 112 H Carbon Dioxide 17.5 L Anion Gap 10.4 BUN 41 H Creatinine 2.66 H Est GFR (CKD-EPI) 17.388 Glucose 141 H POC Glucose 138 POC Glucose Comment Glu2: cleaned meter Lactic Acid Calcium 7.7 L Magnesium 1.6 L Total Bilirubin 0.4 AST 14 ALT 15 Alkaline Phosphatase 64 Total Creatine Kinase 25 L Troponin I High Sens 9.3 B-Natriuretic Peptide 660.0 H Total Protein 5.1 L Albumin 2.7 L Globulin 2.4 Albumin/Globulin Ratio 1.1 TSH 3rd Generation 3.69 Urine Color Yellow Urine Appearance Clear Urine pH 5.5 Ur Specific [place] 1.023 Urine Protein 50 H Urine Glucose (UA) Normal Urine Ketones Negative Urine Occult Blood Negative Urine Nitrite Negative Urine Bilirubin Negative Urine Urobilinogen Normal Ur Leukocyte Esterase Negative Urine RBC 1-2 Urine WBC 3-4 Urine WBC Clumps Occasional H Ur Squamous Epith Cells 1-2 Urine Bacteria None seen Hyaline Casts None Urine Mucus Rare 09/17/24 09/17/24 09/18/24 22:43 22:48 02:32 Corrected WBC Uncorrected WBC Count RBC Hgb Hct MCV MCH MCHC RDW Plt Count MPV Neut % (Auto) Lymph % (Auto) [place] % (Auto) Eos % (Auto) Baso % (Auto) Nucleat RBC Rel Count Neut # (Auto) Lymph # (Auto) [place] # (Auto) Eos # (Auto) Baso # (Auto) Monocyte Dist Width Platelet Estimate Plt Morphology Comment RBC Morphology PT INR APTT Sample Site Venous VBG pH 7.34 VBG pCO2 30.5 L VBG HCO3 15.9 L VBG Total CO2 16.9 L VBG O2 Saturation 76.2 H VBG Base Excess -8.6 L FiO2 21 Critical Value PHA Creatinine Clear Sodium Potassium Chloride Carbon Dioxide Anion Gap BUN Creatinine Est GFR (CKD-EPI) Glucose POC Glucose POC Glucose Comment Lactic Acid 0.9 Calcium Magnesium Total Bilirubin AST ALT Alkaline Phosphatase Total Creatine Kinase Troponin I High Sens 9.1 B-Natriuretic Peptide Total Protein Albumin Globulin Albumin/Globulin Ratio TSH 3rd Generation Urine Color Urine Appearance Urine pH Ur Specific [place] Urine Protein Urine Glucose (UA) Urine Ketones Urine Occult Blood Urine Nitrite Urine Bilirubin Urine Urobilinogen Ur Leukocyte Esterase Urine RBC Urine WBC Urine WBC Clumps Ur Squamous Epith Cells Urine Bacteria Hyaline Casts Urine Mucus 09/18/24 09/18/24 09/18/24 06:36 07:25 09:30 Corrected WBC 9.8 Uncorrected WBC Count 9.8 RBC 3.72 Hgb 12.0 Hct 35.5 MCV 95.4 MCH 32.3 MCHC 33.8 RDW 14.1 Plt Count 137 L MPV 10.2 Neut % (Auto) 81.6 Lymph % (Auto) 6.6 [place] % (Auto) 8.7 Eos % (Auto) 2.3 Baso % (Auto) 0.8 Nucleat RBC Rel Count 0.0 Neut # (Auto) 8.0 H Lymph # (Auto) 0.7 L [place] # (Auto) 0.9 H Eos # (Auto) 0.2 Baso # (Auto) 0.1 Monocyte Dist Width Platelet Estimate Plt Morphology Comment RBC Morphology PT INR APTT Sample Site VBG pH VBG pCO2 VBG HCO3 VBG Total CO2 VBG O2 Saturation VBG Base Excess FiO2 Critical Value PHA Creatinine Clear 18.85 Sodium 137 Potassium 3.9 Chloride 112 H Carbon Dioxide 17.4 L Anion Gap 11.5 BUN 40 H Creatinine 2.58 H Est GFR (CKD-EPI) 18.037 Glucose 112 H POC Glucose 111 177 POC Glucose Comment Glu2: cleaned meter Lactic Acid Calcium 7.5 L Magnesium 1.7 L Total Bilirubin AST ALT Alkaline Phosphatase Total Creatine Kinase Troponin I High Sens 21.2 H B-Natriuretic Peptide Total Protein Albumin Globulin Albumin/Globulin Ratio TSH 3rd Generation Urine Color Urine Appearance Urine pH Ur Specific [place] Urine Protein Urine Glucose (UA) Urine Ketones Urine Occult Blood Urine Nitrite Urine Bilirubin Urine Urobilinogen Ur Leukocyte Esterase Urine RBC Urine WBC Urine WBC Clumps Ur Squamous Epith Cells Urine Bacteria Hyaline Casts Urine Mucus Assessment/Plan (1) Weakness: (2) Diabetic neuropathy: Qualifiers: Diabetes mellitus type: type 2 Diabetes mellitus complication detail: diabetic autonomic neuropathy Qualified Code(s): E11.43 - Type 2 diabetes mellitus with diabetic autonomic (poly)neuropathy (3) Multiple myeloma in remission: (4) Impaired mobility and activities of daily living: Plan This is an 84 y/o female who presents with multifactorial functional decline in the setting of weakness and debility likely stemming from past COVID-19 infection. -At this time, the patient does not meet criteria for inpatient rehab. -She has noted functional deficits and I agree that she is not appropriate for home at this time. I would recommend discharge to a [facility] facility for continued therapy services. -Continue early mobility and OOB therapy. -Thank you for the consult. Patient was personally seen by me, Dr. Diaz, on the day of encounter, reviewed the history and the relevant portions of the chart, including current orders, allied health and mental hygiene consultant notes, labs/imaging and performed chahal elements of exam and I formulated the plan of care and facilitated the medical decision making. I completed a substantive portion of this encounter, the medical decision making portion of this note in its entirety, including Allied health note review, nursing note review, mental hygiene consultant note review, discussion with nursing and case management, and more than 50% of my time was spent on counseling and coordination of care, time spent 65 minutes Documented By: Cristiano Diaz MD [id number] Signed By: <Electronically signed by Cristiano Diaz MD> 09/18/24 2837 [facility] Work Phone: 1(183) 422-351511-05-2024 Progress note Author Trent Patterson [facility] September 18, 2024 1:48pm Note Date/Time September 18, 2024 1 :41pm [facility] [address] [place] [address] Hospitalist Progress Note Signed Patient: Hailee Trivedi MR#: [id number] : 1940 Acct:[id number] Age/Sex: 84 / F Adm Date: 4 Loc: Room: [address] [place] [address] Type: ADM INOo Attending Dr: Trent Patterson MD Copies to: ~ Date of Service: 09/18/2024 Subjective Subjective Narrative: Attending note: I saw the patient personally on the day of encounter. I reviewed the relevant history, and performed the chahal elements of the physical examination. I reviewedthe relevant laboratory workup, radiological studies and the current treatment plan. I formulated the plan of care and confirmed it with the resident/student/DISHROOM ATTENDANT. This patient presented to the emergency department complaining of fatigue, diarrhea, lower abdominal pain. She states that she recovered from COVID about 2 weeks ago. This past Tuesday she presented herself to [facility] and was diagnosed with a UTI and dehydration and was given IV fluids and antibiotics. She states that she had some diarrhea over the last couple of days but states that she has not had a bowel movement since arriving at the hospital last night. Laboratory evaluation demonstrates a creatinine of 2.58 with a history of CKD stage IV which is at her baseline. Troponins are very mildly elevated to 21.2 which is non-significant at this time. Notably her BNP is elevated to 660 with no history of congestive heart failure diagnosed in the past. The patient is denying chest pain and shortness of breath at this time. Physical exam Extremities: Mild lower extremity edema Respiratory: Clear to auscultation bilaterally Cardiovascular: Regular rate and rhythm Abdomen: Tenderness on palpation of the bilateral lower quadrants HEENT: No acute findings Joints: Nonswollen nontender Elevated BNP Assess for CHF with echocardiogram Chest Pain r/o ACS ?Trend troponins Weakness/debility Recently diagnosed with COVID 12 days prior. ? Consult PT/OT ? Up with assist ? IV hydration overnight?LR @ 75CC/HR x 1 L Chronic conditions T2DM?fingersticks ACHS, SSI AC, NPH CKD stage IV?current creatinine 2.66, baseline ~ 2.3?BMP in a.m. A-fib?rivaroxaban HTN?carvedilol, amlodipine HLD?atorvastatin History of CVA?low-dose aspirin daily DVT PPx?SCDs, rivaroxaban Diet order?1999 ADA CODE STATUS?DNR CC as discussed with patient Exam Physical Exam Vital Signs: Temp Pulse Resp BP Pulse Ox O2 Del Method 97.9 F 96 18 124/75 96 Room Air 09/18/24 12:00 09/18/24 12:00 09/18/24 12:00 09/18/24 12:00 09/18/24 12:00 09/18/24 12:00 Objective Lab Results 09/18/24 07:25 09/18/24 07:25 Meds Allergies and Active Meds Allergies lenalidomide [From Revlimid] Allergy (Mild, Verified 09/17/24 20:43) Rash, itching oxybutynin Allergy (Unknown, Verified 09/17/24 20:43) Rash, rash, hives pregabalin [From Lyrica] Allergy (Unknown, Verified 09/17/24 20:43) double vision Active Meds: Active Medications Generic Name Dose Route Start Last Admin Trade Name Freq PRN Reason Stop Dose Admin Acetaminophen 1,000 mg 09/18/24 01:22 Acetaminophen 500 Mg Tablet PO 09/18/25 01:21 Q6HR PRN Pain Scale 1 - 3 or fever Acyclovir 400 mg 09/18/24 09:00 09/18/24 08:44 Acyclovir 400 Mg Tablet PO 400 mg BID KARISSA Administration Amlodipine Besylate 5 mg 09/18/24 09:00 09/18/24 08:44 Amlodipine 5 Mg Tablet PO 09/18/25 08:59 5 mg DAILY KARISSA Administration Aspirin 81 mg 09/18/24 09:00 09/18/24 08:44 Aspirin 81 Mg Tab.Chew PO 09/18/25 08:59 81 mg DAILY KARISSA Administration Atorvastatin Calcium 40 mg 09/18/24 09:00 09/18/24 08:44 Atorvastatin 40 Mg Tablet PO 09/18/25 08:59 40 mg DAILY KARISSA Administration Carvedilol 12.5 mg 09/18/24 09:00 09/18/24 08:44 Carvedilol 12.5 Mg Tablet PO 09/18/25 08:59 12.5 mg BID KARISSA Administration Dextrose 0 gm 09/18/24 01:27 Dextrose 50% In Water 25 Gm/50 Ml Syringe IV-PUSH 09/18/25 01:26 PRN PRN Hypoglycemia Glucose 0 gm 09/18/24 01:27 Dextrose 40% Gel 15 Gm Tube PO 09/18/25 01:26 PRN PRN Hypoglycemia Insulin Aspart 0 units 09/18/24 08:00 09/18/24 12:10 Insulin Aspart 300 Units/3 Ml Insuln.Pen SUBCUT 09/18/25 07:59 Not Given TID.WM.HS [facility] Protocol Insulin Human NPH 15 units 09/18/24 09:00 09/18/24 08:45 Insulin Nph Human Isophane 300 Units/3 Ml Insuln.Pen SUBCUT 09/18/25 08:59 15 units BID KARISSA Administration Rivaroxaban 15 mg 09/18/24 17:00 Rivaroxaban 15 Mg Tablet PO 09/18/25 16:59 DAILY.WITH.SUPPER KARISSA Sodium Bicarbonate 1,300 mg 09/18/24 14:00 Sodium Bicarbonate 650 Mg Tablet PO 09/18/25 13:59 QID KARISSA Sodium Chloride 0 ml 09/17/24 20:42 09/18/24 02:47 Sodium Chloride 0.9 % 10 Ml Syringe IV-PUSH 09/17/25 20:41 10 ml PRN PRN Administration Flush Sodium Chloride 0 ml 09/18/24 06:00 09/18/24 06:14 Sodium Chloride 0.9 % 10 Ml Syringe IV-PUSH 09/18/25 05:59 Not Given QSHIFT [facility] A&P - Hospitalist Assessment/Plan (1) Chest pain: (2) CKD (chronic kidney disease) stage 4, GFR 15-29 ml/min: (3) Weakness: Plan . Documented By: Trent Patterson MD 09/18/24 1334 Signed By: <Electronically signed by Trent Patterson MD> 09/18/24 1348 <Electronically signed by DO MARK Everett> 09/18/24 1342 [facility] Work Phone: 1(417) 468-233311-05-2024 History and physical note Author Pool Buck [facility] September 18, 2024 5:23am Note Date/Time September 18, 2024 1 :33am [facility] [address] [place] [address] Hospitalist H&P Signed Patient: Hailee Trivedi MR#: [id number] : 1940 Acct:[id number] Age/Sex: 84 / F Adm Date: 4 Loc: Room: [address] [place] [address] Type: ADM INOo Attending Dr: Pool Buck MD Copies to: MD Curt Boogie MD Paula G Smith, DIRECTOR [employer]AIN~ HPI DATE OF EXAMINATION: 09/18/24 CHIEF COMPLAINT: weakness HISTORY OF PRESENT ILLNESS: Ms. Trivedi is an 84-year-old female with a PMH of T2DM, chronic A-fib on rivaroxaban, CKD stage IV, HTN, CVA, multiple myeloma in remission the presents to the emergency room tonight for weakness, debility. Patient states I just feel crappy. States that she had COVID a couple weeks ago and has not felt right since. States she has had diarrhea since last week, reports her last BM was yesterday was watery and black. When her diarrhea started she had taken Pepto-Bismol so that is why she thinks her stools are black. She reports going to [facility] emergency room Tuesday and they diagnosed her with a UTI anddehydration, gave her IV fluids and antibiotics. She states that she is feels tired all the time. She feels like she cannot urinate, she has urinated in the emergency room. She states that her stomach hurts, she has not ate since noon and she thinks it hurts because she is hungry. She denies fever, chills, nausea, vomiting. She denies shortness of breath, currently denies chest pain. CT of the head shows no acute intracranial pathology, remote lacunar infarcts inthe left cerebral peduncle, gliosis and encephalomalacia in the right cerebellarhemisphere, remote lacunar infarct in the right frontal periventricular white matter and caudate nucleus, chronic age-related degenerative changes. Chest x-ray shows no acute cardiopulmonary pathology. CBC with white blood cell count of 12, platelets 143. PT/INR 17.3/1.5, PTT 30.4. ABG with a pH of 7.34, arldbs60.9. CMP with a serum bicarb of 17.5, BUN 41, creatinine 2.66, glucose 141, calcium 7.7, albumin 2.7, total protein 5.1. Magnesium 1.6. Total CPK 25, troponin 9.3, BNP 660. UA with clear, yellow urine with 50 protein, occasional white blood cell clumps, no bacteria seen. EKG shows A-fib. Patient developed chest pain while in the emergency room, was medicated with 1 sublingual nitro which lowered her blood pressure and relieve the chest pain. She also received 40 mg of Mag-Ox. She will be admitted as observation to [facility] floor Review of Systems Review of Systems Review of systems: A 10 point review of systems was obtained, negative unless noted in the HPI or below. [facility] Medical History Multiple myeloma Type 2 diabetes mellitus with [...] HTN (hypertension) Multiple myeloma Hyperlipidemia Surgical History Hx of lithotripsy History of renal stent History of hemorrhoidectomy History of cholecystectomy History of hysterectomy Family History Brother Hypertension Legacy FamHx Relation: Brother(s) Daughter Heart disease Legacy FamHx Relation: Daughter(s) Father Mother History of stroke Legacy FamHx Problem: Diagnosed with Stroke Diabetes Heart disease Son Heart disease Cancer Legacy FamHx Problem: Diagnosed with Cancer Diabetes Sister Diabetes Social History Smoking Status: Never smoker Substance Use Type: None Meds Medications and Allergies Allergies lenalidomide [From Revlimid] Allergy (Mild, Verified 09/17/24 20:43) Rash, itching oxybutynin Allergy (Unknown, Verified 09/17/24 20:43) Rash, rash, hives pregabalin [From Lyrica] Allergy (Unknown, Verified 09/17/24 20:43) double vision Home Medications sodium bicarbonate 650 mg tablet 650 mg PO BID 07/14/17 [History Confirmed 09/17/24] cholecalciferol (vitamin D3) 125 mcg (5,000 unit) tablet (Vitamin D3) 1,000 unitPO DAILY 08/10/18 [History Confirmed 09/17/24] atorvastatin 40 mg tablet 40 mg PO DAILY 08/23/18 [History Confirmed 09/17/24] aspirin 81 mg chewable tablet 81 mg PO DAILY 10/18/18 [History Confirmed 09/17/24] cyanocobalamin (vitamin B-12) 1,000 mcg tablet 1,000 mcg PO DAILY 05/02/19 [History Confirmed 09/17/24] carvedilol 12.5 mg tablet (Coreg) 12.5 mg PO BID 30 days #60 tabs 11/07/19 [Rx Confirmed 09/17/24] rivaroxaban 15 mg tablet (Xarelto) 15 mg PO DAILY 30 days #30 tabs 11/07/19 [Rx Confirmed 09/17/24] acyclovir 400 mg tablet See Rx Instructions .Route .COMPLEX #180 tabs 01/02/24 [Rx Confirmed 09/17/24] insulin NPH isoph U-100 human 100 unit/mL subcutaneous suspension (Humulin N NPHU-100 Insulin (isophane susp)) 15 unit subcut BID 07/05/24 [History Confirmed 09/17/24] omega 7-uks-hdh-fish oil 1,000 mg (120 mg-180 mg) capsule (Fish Oil) 1 cap PO Q48HR 07/05/24 [History Confirmed 09/17/24] sodium citrate-citric acid 490 mg-640 mg/5 mL oral solution (Oracit) 10 ml PO QHS PRN Kidney stones 07/05/24 [History Confirmed 09/17/24] amlodipine 5 mg tablet 5 mg PO DAILY #90 tabs 08/20/24 [Rx Confirmed 09/17/24] Exam Physical Exam Vital Signs: Temp Pulse Resp BP Pulse Ox O2 Del Method 98.2 F 90 20 131/57 L 96 Room Air 09/17/24 20:43 09/18/24 00:38 09/18/24 00:38 09/18/24 00:38 09/18/24 00:38 09/18/24 00:38 Narrative: CONST- Appears well -developed and well nourished. Morbidly obese?BMI 31.8 HEAD - Normocephalic and atraumatic EENT-Sclera nonicteric, conjunctive are non-erythemic, moist oral mucosa, pharynx clear NECK-Supple, no cervical lymphadenopathy CARDIAC-normal rate, regular rhythm, S1 & S2. PULM-diminished without wheeze or rhonchi, RA, no accessory muscle use or cough noted ABD - Soft. Bowel sounds are normal. No distention. No tenderness EXTREM-non pitting edema BLE calves, nontender SKIN- W/D good turgor MS- MAEX4 spontaneously with equal with equal strength NEURO- A&Ox3 speech clear and tongue midline, equal facial symmetry, no focal motor deficits PSYCH-Mood, affect, and behavior appropriate Results - Hospitalist H&P Lab Results Labs: Laboratory Last Values Corrected WBC 12.0 X10E3/uL (3.8-11.6) H 09/17/24 21:16 Uncorrected WBC Count 12.0 x10E3/uL (3.8-11.6) H 09/17/24 21:16 RBC 3.77 X10E6/uL (3.60-5.00) 09/17/24 21:16 Hgb 12.0 g/dL (11.8-15.4) 09/17/24 21:16 Hct 36.0 % (34.0-46.4) 09/17/24 21:16 MCV 95.5 fl (80-100) 09/17/24 21:16 MCH 31.8 pg (24.7-34.3) 09/17/24 21:16 MCHC 33.3 g/dL (32.0-35.0) 09/17/24 21:16 RDW 14.3 % (11.9-15.3) 09/17/24 21:16 Plt Count 143 x10E3/uL (150-450) L 09/17/24 21:16 MPV 10.3 fl (6.3-10.7) 09/17/24 21:16 Neut % (Auto) 87.9 % (.) 09/17/24 21:16 Lymph % (Auto) 4.8 % (.) 09/17/24 21:16 [place] % (Auto) 4.9 % (.) 09/17/24 21:16 Eos % (Auto) 2.1 % (.) 09/17/24 21:16 Baso % (Auto) 0.3 % (.) 09/17/24 21:16 Nucleat RBC Rel Count 0.0 /100 WBC (0-0.5) 09/17/24 21:16 Neut # (Auto) 10.6 x10E3/uL (1.8-7.7) H 09/17/24 21:16 Lymph # (Auto) 0.6 x10E3/uL (1.00-4.8) L 09/17/24 21:16 [place] # (Auto) 0.6 x10E3/uL (0.0-0.8) 09/17/24 21:16 Eos # (Auto) 0.3 x10E3/uL (0.0-0.45) 09/17/24 21:16 Baso # (Auto) 0.0 x10E3/uL (0.0-0.2) 09/17/24 21:16 Monocyte Dist Width 29.77 % (0.00-20.00) H 09/17/24 21:16 Platelet Estimate Normal (Normal) 09/17/24 21:16 Plt Morphology Comment Normal (Normal) 09/17/24 21:16 RBC Morphology Normal (Normal) 09/17/24 21:16 PT 17.3 Seconds (9.0-12.9) H 09/17/24 21:16 INR 1.5 09/17/24 21:16 APTT 30.4 Seconds (25.1-36.5) 09/17/24 21:16 Sample Site Venous 09/17/24 22:48 VBG pH 7.34 (7.32-7.43) 09/17/24 22:48 VBG pCO2 30.5 mmHg (38.0-50.0) L 09/17/24 22:48 VBG HCO3 15.9 mmol/L (23.0-29.0) L 09/17/24 22:48 VBG Total CO2 16.9 mmol/L (24.0-29.0) L 09/17/24 22:48 VBG O2 Saturation 76.2 % (73.0-76.0) H 09/17/24 22:48 VBG Base Excess -8.6 mmol/L (-3.0-3.0) L 09/17/24 22:48 FiO2 21 % 09/17/24 22:48 Critical Value 09/17/24 22:48 PHA Creatinine Clear 18.35 09/17/24 21:16 Sodium 136 mmol/L (136-145) 09/17/24 21:16 Potassium 3.9 mmol/L (3.5-5.1) 09/17/24 21:16 Chloride 112 mmol/L (98-107) H 09/17/24 21:16 Carbon Dioxide 17.5 mmol/L (21.0-31.0) L 09/17/24 21:16 Anion Gap 10.4 mEq/L (6.0-15.0) 09/17/24 21:16 BUN 41 mg/dL (7-25) H 09/17/24 21:16 Creatinine 2.66 mg/dL (0.60-1.20) H 09/17/24 21:16 Est GFR (CKD-EPI) 17.388 mL/Min 09/17/24 21:16 Glucose 141 mg/dL (70-100) H 09/17/24 21:16 POC Glucose 138 mg/dl 09/17/24 20:46 POC Glucose Comment Glu2: cleaned meter 09/17/24 20:46 Lactic Acid 0.9 mmol/L (0.5-2.2) 09/17/24 22:43 Calcium 7.7 mg/dL (8.6-10.3) L 09/17/24 21:16 Magnesium 1.6 mg/dL (1.9-2.7) L 09/17/24 21:16 Total Bilirubin 0.4 mg/dl (0.3-1.0) 09/17/24 21:16 AST 14 U/L (13-39) 09/17/24 21:16 ALT 15 U/L (7-52) 09/17/24 21:16 Alkaline Phosphatase 64 U/L (34-104) 09/17/24 21:16 Total Creatine Kinase 25 U/L (30-223) L 09/17/24 21:16 Troponin I High Sens 9.3 pg/mL (0.0-15.0) 09/17/24 21:16 B-Natriuretic Peptide 660.0 pg/mL (5-100) H 09/17/24 21:16 Total Protein 5.1 gm/dL (6.4-8.9) L 09/17/24 21:16 Albumin 2.7 gm/dL (3.5-5.7) L 09/17/24 21:16 Globulin 2.4 gm/dL 09/17/24 21:16 Albumin/Globulin Ratio 1.1 09/17/24 21:16 TSH 3rd Generation 3.69 uIU/mL (0.45-5.33) 09/17/24 21:16 Urine Color Yellow (Yellow) 09/17/24 21:56 Urine Appearance Clear (Clear) 09/17/24 21:56 Urine pH 5.5 (5.0-9.0) 09/17/24 21:56 Ur Specific [place] 1.023 (1.001-1.030) 09/17/24 21:56 Urine Protein 50 mg/dL (Negative) H 09/17/24 21:56 Urine Glucose (UA) Normal mg/dL (Normal) 09/17/24 21:56 Urine Ketones Negative (Negative) 09/17/24 21:56 Urine Occult Blood Negative (Negative) 09/17/24 21:56 Urine Nitrite Negative (Negative) 09/17/24 21:56 Urine Bilirubin Negative (Negative) 09/17/24 21:56 Urine Urobilinogen Normal mg/dL (Normal) 09/17/24 21:56 Ur Leukocyte Esterase Negative (Negative) 09/17/24 21:56 Urine RBC 1-2 /HPF (0-4) 09/17/24 21:56 Urine WBC 3-4 /HPF (0-4) 09/17/24 21:56 Urine WBC Clumps Occasional /LPF (None Seen) H 09/17/24 21:56 Ur Squamous Epith Cells 1-2 /HPF (0-2) 09/17/24 21:56 Urine Bacteria None seen /HPF (None Seen) 09/17/24 21:56 Hyaline Casts None /LPF (0-8) 09/17/24 21:56 Urine Mucus Rare /LPF 09/17/24 21:56 ABG Interpretation ABG results: 09/17/24 22:48 VBG pH 7.34 VBG pCO2 30.5 L VBG HCO3 15.9 L VBG Total CO2 16.9 L VBG O2 Saturation 76.2 H VBG Base Excess -8.6 L Assessment & Plan Assessment/Plan (1) Chest pain: (2) Weakness: (3) CKD (chronic kidney disease) stage 4, GFR 15-29 ml/min: (4) Hyperlipidemia: (5) Atrial fibrillation: (6) Diabetes mellitus type II, controlled: (7) HTN (hypertension): Plan Chest Pain r/o ACS ?Trend troponins Weakness/debility Recently diagnosed with COVID 12 days prior. ? Consult PT/OT ? Up with assist ? IV hydration overnight?LR @ 75CC/HR x 1 L Chronic conditions T2DM?fingersticks ACHS, SSI AC, NPH CKD stage IV?current creatinine 2.66, baseline ~ 2.3?BMP in a.m. A-fib?rivaroxaban HTN?carvedilol, amlodipine HLD?atorvastatin History of CVA?low-dose aspirin daily DVT PPx?SCDs, rivaroxaban Diet order?1999 ADA CODE STATUS?DNR CC as discussed with patient Dr. Buck Attestation: Patient was personally seen by me on the day of encounter. I reviewed her history and performed chahal elements of exam and formulated the plan of care and confirmed the nurse practitioners note above. Plan of care reflects my direct input. Suspect patient has residual weakness and symptoms related to COVID infection 2 weeks prior. Monitor closely and continue with supportive care along with PT/OT. IP vs OBS Justification Based on differential dx, clinical care plan, and risk of adverse events, if untreated, in my clinical judgement this patient requires an acute care setting as: OBSERVATION because of an expectation of an under 2 midnight stay. Estimated length of stay (# of days): 1 Documented By: Roseline Overton APRN 09/18/24 0132 Signed By: <Electronically signed by RAMAKRISHNA Overton> 09/18/24 0154 <Electronically signed by Pool Buck MD> 09/18/24 0523 [facility] Work Phone: 1(331) 716-309306-04-2024 History of Present illness Narrative* Elicia Rhodes MD - 04/17/2024 1:40 PM EDT Grzegorz Trivedi is a 83 y.o. female Chief Complaint Follow-up HPI Patient is here for follow-up continue management for persistent atrial fibrillation, hypertension,hyperlipidemia. On long-term anticoagulation. Since last time I saw her she denies any change in cardiac status or symptoms. She describes symptom fatigue and tiredness. She admits to difficulty withambulation mainly due to arthritis. Recent laboratory data [...] recurrence. She did have noninvasive assessment at [facility], which was negative. Couple of years ago. [...] once daily.,Disp: , Rfl: fish oil concentrate ([place]-3) 120-180 mg capsule, Take 1 capsule (1 [...] Scribe Attestation By signing my name below, IDaisy Scribe attest that this documentation has been prepared under the direction and in the presence of MD Clarisa. Provider Attestation - Scribe documentation All medical record entries made by the Scribe were at my direction and personally dictated by me. Ihave reviewed the chart and agree that the record accurately reflects my personal performance of the history, physical exam, discussion and plan. * Daisy Mane LPN - 04/17/2024 1:40 PM EDT Grzegorz Trivedi is a 83 y.o. female Chief Complaint Follow-up HPI ASSESSMENT: 1. Persistent atrial fibrillation. Currently in normal sinus rhythm. Currently on Xarelto with appropriate dose based on renal function 2. Remote evaluation for chest pain, resolved. No recurrence. She did have noninvasive assessment at [facility], which was negative. Couple of years ago. [...] once daily.,Disp: , Rfl: fish oil concentrate ([place]-3) 120-180 mg capsule, Take 1 capsule (1 [...] signing my name below, I, Daisy Parker LPN, Scribe attest that this documentation has been prepared under the direction and in the presence of MD Clarisa. Provider Attestation - Scribe documentation All medical record entries made by the Scribe were at my direction and personally dictated by me. Ximenaave reviewed the chart and agree that the record accurately reflects my personal performance of the history, physical exam, discussion and plan. documented in this [facility] Work Phone: 1(133) 309-726406-04-2024 Instructions* Patient Instructions* Daisy Mane LPN - 04/17/2024 1:40 PM [...] 25.6 Lbs Provided instructions on dietary changes. * Attachments The following attachments cannot be sent through Care Everywhere. * Diet and health (Maori) [facility] Work Phone: 1(241) 809-507301-18-2024 Evaluation note* Encounter Date Diagnosis Assessment Notes Treatment Notes Treatment Clinical Notes Nov, Benign essential HTN (ICD-10 - [...] kidney disease (ICD-10 - N18.4) Let her recreation instructor know that she is having trouble affording the oracit. Will see him as scheduled on 12/05. 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 Had treated neck in the past. Pt tolerated well. [facility] Other 12-04-2023 Evaluation note* Encounter Date Diagnosis Assessment Notes Treatment Notes Treatment Clinical Notes Oct, Type 2 diabetes mellitus with hyperglycemia (ICD-10 - E11.65) [facility] Other 11-30-2023 Evaluation note* Encounter Date Diagnosis Assessment Notes Treatment Notes Treatment Clinical Notes Sep, Type 2 diabetes mellitus with hyperglycemia (ICD-10 - E11.65) [facility] Other 11-21-2023 History of Present illness Narrative* [...] dizziness or syncope. She was in the hospita l on 1 occasion because of elevated blood pressure and epistaxis. She reports she forgot to take her Coreg. She required nasal packing. However since her blood pressure has improved patient denies any complain. Her recent laboratory data noted and reviewed. Her creatinine around 2.5. Patient complaining about the cost of Xarelto. ASSESSMENT: 1. Persistent atrial fibrillation. Currently in normal sinus rhythm. Currently on Xarelto with appropriate dose based on renal function 2. Remote evaluation for chest pain, resolved. No recurrence. She did have noninvasive assessment at [facility], which was negative. Couple of years ago. [...] once daily.,Disp: , Rfl: fish oil concentrate ([place]-3) 120-180 mg capsule, Take 1 capsule (1 [...] chronic kidney disease (CMS/HCC) [facility] Work Phone: 1(363) 752-550811-21-2023 Instructions* Patient Instructions* Daisy Mane LPN - [...] Follow up 6 months [facility] Work Phone: 1([phone]) 646-367511-13-2023 Evaluation note* Encounter Date Diagnosis Assessment Notes Treatment Notes Treatment Clinical Notes Sep, Bronchitis (ICD-10 - J40) Discussed diagnosis with patient. Finish entire course of antibiotic. Tessalon Pearles ordered to take as needed for cough. Increase fluids and rest. Vdqx-rhm-twfttbr antipyretics as needed. Warning signs and symptoms reviewed with patient today. Patient to go immediately to the ER should she experience any of these. Patient to notify office should her symptoms persist and not improve. Patient verbalizes understanding and agrees to treatment plan. [facility] Other 10-31-2023 Evaluation note* Encounter Date Diagnosis Assessment Notes Treatment Notes Treatment Clinical Notes Aug, Lumbar pain (ICD-10 - M54.50) Hx of falls - will check lumbar XR to r/o fracture Aug, Left flank pain (ICD-10 - R10.9) r/o nephrolith Aug, Bronchitis (ICD-10 - J40) Finish antibiotics. Take prednisone. Understands it will increase her glucose. [facility] Other 10-18-2023 Evaluation note* Encounter Date Diagnosis Assessment Notes Treatment Notes Treatment Clinical Notes Aug, Acute pain of left knee (ICD-10 - M25.562) Aug, Other Patient's not having any pain today. At this point she can call me in the future if she needs me [facility] Other 08-11-2023 Evaluation note* Encounter Date Diagnosis Assessment Notes Treatment Notes Treatment Clinical Notes Jun, UTI symptoms (ICD-10 - R39.9) Will treat empirically as she is unable to provide a sample today. Jun, Weakness (ICD-10 - R53.1) Agrees to for PT and possible help with medications. Jun, Balance disorder (ICD-10 - R26.89) as above [facility] Other 08-10-2023 Evaluation note* Encounter Date Diagnosis [...] sugars are above the goal. Continue follow-up [facility] PCP for diabetes mellitus [...] to the CKD. Continue oral sodium bicarbonate. [facility] Other 06-13-2023 Evaluation note* Encounter Date Diagnosis Assessment Notes Treatment Notes Treatment Clinical Notes Apr, Vasovagal syncope (ICD-10 - R55) Nearly passed out in office, BP down to 90/58. Staff helped her to friends car. Report called to Dr. Agudelo at [facility] ER. Likely due to taking bp med again, when her chief i dispatcher has d/c it. Pt sent to ER. Apr, Weakness (ICD-10 - R53.1) Pt agrees to HH and PT. Also could use help from for walk in shower and local services for seniors. Apr, Acute pain of left knee (ICD-10 - M25.562) tramadol, PT, and HH Apr, Other Pt states tylen mata is not helpful and requests another pain med. She agrees to HH and PT [facility] Other 05-03-2023 NotePROCEDURE: XR KNEE LT 1_2 [...] Electronically authenticated by: WILD SOLO Date: 2023-03-16 09:18[facility]05-02-2023 Evaluation note* Encounter Date Diagnosis Assessment Notes Treatment Notes Treatment Clinical Notes March, Left lateral knee pain (ICD-10 - M25.562) Discussed possible PT. Has improved overall with rest and stretching. Will start with Xray. Recommended tylenol products. March, Hypertension (ICD-10 - I10) chronic. stable - controlled on present meds [facility] Other 02-28-2023 Progress note Author Misti Connolly [facility] January 11, 2023 11:19am Note Date/Time January 11, 2023 10:42am [facility] [place] [address] Hem/Onc Follow Up Note - OP Signed Patient: Hailee Trivedi MR#: [id number] : 1940 Acct:[id number] Age/Sex: 82 / F Type: REG RCR [...] neurologist. Head CT done March 2022 at [facility] without new/acute findings. 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 [...] been trying to transfer her care to [facility] but they are not up [...] x 1 week, sees neurology (followed at [facility]) who have ruled out stroke, CT [...] for coordination of care (as documented) and cvzs-ku-rgul counseling of patient and/or family. [facility] - Medical History Medical History: Medical History [...] 01/19/22 09:00 KB (Rec: 01/19/22 09:01 KB [id number]) Distress Screening Distress screening follow up: Will follow with patient for any needs at next visit. Anxious about making next appointment time. - Lab Results Diagram of Most Recent CBC and CMP 01/04/23 14:45 01/04/23 14:45 Labs - Last 7 Days 01/04/23 14:45: Free Marceline LC, Quant 26.9 H, Free Lambda LC, Quant 12.0, Free Marceline/Lambda Ratio 2.24 H 01/04/23 14:45: PHA Creatinine [...] % (Auto) 54.8, Lymph % (Auto) 34.1, [place] % (Auto) 8.0, Eos % (Auto) 2.3, Baso % (Auto) 0.8, Nucleat RBC Rel Count 0.0, Neut # (Auto) 4.9, Lymph # (Auto) 3.0, [place] # (Auto) 0.7, Eos # (Auto) 0.2, [...] <Electronically signed by RAMAKRISHNA Connolly> 01/11/23 [address] [facility] Work Phone: 1(372) 226-311402-27-2023 Hospital Discharge instructions Patient Education 01/10/2023 08:23:12 [...] include: ?Spinach. ?Rhubarb. ?Beets. ?Potato chips and persian fries. ?Nuts. If you regularly take a diuretic medicine, make sure to eat at least 1 2 fruits or vegetables high in potassium each day. These include: ?Avocado. ?Banana. ?[place], prune, carrot, or tomato juice. ?Baked potato. [...] Casseroles. Pizza. Lasagna. Frozen meals. Potato chips. Iraqi fries. Summary You can reduce your risk [...] 02/25/2012 Document Revised: 02/20/2020 Document Reviewed: 10/11/2017 [employer] Patient Education 2020 [employer]. Follow Up Care 03/08/2022 11:44:08 With:XAVIER VELAZQUEZ, Tyree Rivers, URL Address: [facility] [address] , [place] [address]- When: Unknown [facility] 02-08-2023 Evaluation note* Encounter Date Diagnosis [...] sugars are above the goal. Continue follow-up [facility] PCP for diabetes mellitus [...] to the CKD. Continue oral sodium bicarbonate. [facility] Other 01-26-2023 Evaluation note* Encounter Date Diagnosis Assessment Notes Treatment Notes Treatment Clinical Notes Nov, Paroxysmal atrial fibrillation (ICD-10 - I48.0) Patient understands to restart all of her medicines and take them as prescribed Will notify her chief i dispatcher of this situation. Nov, Wart of face (ICD-10 - B07.9) Small wart on her face was treated with cryo freeze without issue pt tolerated procedure well Nov, CKD (chronic kidney disease), stage IV (ICD-10 - N18.4) Discussed follow-up appointment with Dr. Jane Nov, Multiple myeloma (ICD-10 - C90.00) Stable on present appointments and treatment [facility] Other 10-04-2022 Progress note Author Claire Choi [facility] August 17, 2022 1:48pm Note Date/Time August 03, 2022 4:57pm [facility] [place] [address] Hem/Onc Follow Up Note - OP Signed with Addenda Patient: Hailee Trivedi MR#: [id number] : 1940 Acct:[id number] Age/Sex: 82 / F Type: REG RCR [...] neurologist. Head CT done March 2022 at [facility] without new/acute findings. May suggest brain MRI if no other etiologies identified - History of Present Illness Chief Complaint: Patient is here for a 3 month follow up with outside labs for review. States she has had ongoing lower back pain for the last month or so. Patient scheduled for Cycle 55 Daratumumab today. HPI: Hailee is a pleasant lady with Marceline light chain multiple myeloma diagnosed by Dr. [...] been trying to transfer her care to [facility] but they are not up [...] x 1 week, sees neurology (followed at [facility]) who have ruled out stroke, CT [...] for coordination of care (as documented) and ppmo-rr-fxts counseling of patient and/or family. [facility] - Medical History Medical History: Medical History [...] 01/19/22 09:00 KB (Rec: 01/19/22 09:01 KB [id number]) Distress Screening Distress screening follow up: Will [...] signed by Claire Choi II, DO> 08/03/221658 [facility] Work Phone: 1(381) 215-587609-20-2022 Progress note Author Claire Choi [facility] August 03, 2022 5:01pm Note Date/Time August 03, 2022 5:00pm [facility] [place] [address] Hem/Onc Follow Up Note - OP Signed Patient: Hailee Trivedi MR#: [id number] : 1940 Acct:[id number] Age/Sex: 82 / F Type: REG RCR [...] neurologist. Head CT done March 2022 at [facility] without new/acute findings. May suggest brain MRI if no other etiologies identified - History of Present Illness Chief Complaint: Patient is here for a 3 month follow up with outside labs for review. States she has had ongoing lower back pain for the last month or so. Patient scheduled for Cycle 55 Daratumumab today. HPI: Hailee is a pleasant lady with Marceline light chain multiple myeloma diagnosed by Dr. [...] been trying to transfer her care to [facility] but they are not up [...] x 1 week, sees neurology (followed at [facility]) who have ruled out stroke, CT [...] for coordination of care (as documented) and vmue-bd-oqsd counseling of patient and/or family. [facility] - Medical History Medical History: Medical History (Last Updated 12/16/21 @ 12:55 by Courtney Jackman) Afib CKD (chronic kidney disease) COVID-19 CVA (cerebral vascular accident) Diabetes HTN (hypertension) Hyperlipidemia Kidney stone Multiple myeloma - Surgical History Surgical History: Surgical History (Last Reviewed 12/16/21 @ 12:55 by Courteny Jackman) History of cholecystectomy History of hemorrhoidectomy [...] 01/19/22 09:00 KB (Rec: 01/19/22 09:01 KB [id number]) Distress Screening Distress screening follow up: Will [...] signed by Claire Choi II, DO> 08/03/22 170 [facility] Work Phone: 1(370) 972-540108-24-2022 Evaluation note* Encounter Date Diagnosis Assessment Notes [...] sugars are above the goal. Continue follow-up [facility] PCP for diabetes mellitus [...] (IC D-10 - C90.00) Follows with Oncology [facility] Other 07-08-2022 History general Narrative - Reported* [...] Hospitalization History [facility]DEHY[facility] Hospitalization History COVID 10/2021 [facility] Other 07-08-2022 History general Narrative - Reported* [...] Medical History A-FIB Medical History V[facility]IG[facility] PER [facility] 06/19/2023 Surgical History cholecystectomy Surgical History total hysterectomy 1989 Surgical History hemorrhoidectomy Surgical History CHEMO 06/2016 Surgical History lithotripsey 03/09/18 Surgical History Lithotripsey 02-09-2018 Surgical History left kidney stent 12-27-19 Surgical History LITHOTRIPSEY 01/24/2020 Surgical History STENT REMOVAL 03/03/2021 Surgical History KIDNEY STONES X 3 WITH LASER 02/19/2021 Hospitalization History SEE ABOVE SURGERY Hospitalization History [facility] Hospitalization History COVID 10/2021 [facility] Other 05-31-2022 Progress note Author Misti Connolly [facility] April 13, 2022 11:35am Note Date/Time April 13, 2022 9:33a m [facility] [address] [address] Hem/Onc Follow Up Note - OP Signed Patient: Hailee Trivedi MR#: [id number] : 1940 Acct:[id number] Age/Sex: 81 / F Type: REG RCR Copies to: MD Junaid Napierothy Dayan Choi, II, DO~ Date of Service: 04/13/2022 Time [...] neurologist. Head CT done March 2022 at [facility] without new/acute findings. May suggest brain MRI if no other etiologies identified Follow Up Instructions: Irma today and continue every 6 weeks myeloma labs on irma days here cbc, cmp at [facility] prior to treatment follow-up with Dr. Quiroga in 3mo - History of Present Illness Chief Complaint: Patient is here today for 2 month follow up visit for multiple myeloma. HPI: Hailee is a pleasant lady with Marceline light chain multiple myeloma diagnosed by Dr. [...] been trying to transfer her care to [facility] but they are not up [...] x 1 week, sees neurology (followed at [facility]) who have ruled out stroke, CT [...] 6 mg and cyclophosphamide 300 mg IV [id number]/15/2015, developed grade 2 anemia, fatigue and grade [...] for coordination of care (as documented) and ipuz-wa-akwf counseling of patient and/or family. [facility] - Medical History Medical History: Medical History [...] 98 Distress Screening: RN Distress Screening Start: 09/08/17 16:17 Freq: Q30D Status: Active Protocol: Document 01/19/22 09:00 KB (Rec: 01/19/22 09:01 KB [id number]) Distress Screening Distress screening follow up: Will follow with patient for any needs at next visit. Anxious about making next appointment time. - Lab Results Diagram of Most Recent CBC and CMP 04/08/22 13:20 04/08/22 13:20 Labs - Last 7 Days 04/08/22 13:20: Serum Total Protein 5.9 L, Albumin (Send Out) 3.6, Globulin (PEP) 2.3, Albumin/Globulin (PEP) 1.6, Pcvxm-7-Jcfiwzqoj 0.1, Hqzns-9-Vnexmxsly 0.8, Beta Globulins 0.7, Gamma Globulins 0.6, M-Krystian Not observed, PEP Note , Free Marceline LC, Quant 17.7, Free Lambda LC, Quant 10.0, Free Marceline/Lambda Ratio 1.77 H 04/08/22 13:20: PHA Creatinine [...] % (Auto) 54.1, Lymph % (Auto) 38.9, [place] % (Auto) 5.8, Eos % (Auto) 0.7, Baso % (Auto) 0.5, Neut # (Auto) 4.6, Lymph # (Auto) 3.3, [place] # (Auto) 0.5, Eos# (Auto) 0.1, Baso [...] <Electronically signed by RAMAKRISHNA Connolly> 04/13/22 [address] [facility] Work Phone: 1(494) 929-115204-25-2022 Hospital Discharge instructions Patient Education 03/08/2022 11:37:40 [...] 10/31/2006 Document Revised: 07/20/2019 Document Reviewed: 09/30/2017 [employer] Patient Education 2020 [employer]. 03/08/2022 11:37:40 Calorie Counting for Weight Loss [...] 10/31/2006 Document Revised: 07/20/2019 Document Reviewed: 09/30/2017 [employer] Patient Education 2020 [employer]. 03/08/2022 11:37:32 Kidney Stones, Axls-nu-Jadz Kidney Stones Kidney stones are rock-like masses [...] Follow these instructions at home: Medicines Take wpjf-lpw-zsyczfj and prescription medicines only as told by [...] 04/18/2009 Document Revised: 03/18/2020 Document Reviewed: 03/18/2020 [employer] Patient [employer] 2020 [employer]. Follow Up Care 09/04/2021 09:56:37 With:XAVIER VELAZQUEZ, Tyree Rivers, URL Address: [facility] [address] , [place] [address] [phone] When:01/08/2023 Comments:10 month carlene MARAVILLA [facility] 03-07-2022 Progress note Author Claire Choi [facility] January 18, 2022 9:58am Note Date/Time January 18, 2022 9:42 am [facility] at [address] [address] Hem/Onc Follow Up Note - OP Signed Patient: Hailee Trivedi MR#: [id number] : 1940 Acct:[id number] Age/Sex: 81 / F Type: REG RCR [...] prior to f/u. 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 - History of Present Illness Chief Complaint: [...] 6 mg and cyclophosphamide 300 mg IV okwktr3308/15/2015, developed grade 2 anemia, fatigue and grade [...] for coordination of care (as documented) and osea-du-juom counseling of patient and/or family. [facility] - Medical History Medical History: Medical History [...] % (Auto) 59.4, Lymph % (Auto) 31.4, [place] % (Auto) 7.2, Eos % (Auto) 0.9, Baso % (Auto) 1.1, Neut # (Auto) 5.4, Lymph # (Auto) 2.8, [place] # (Auto) 0.7, Eos# (Auto) 0.1, Baso [...] by Claire Choi II, DO> 01/18/22 0958 [facility] Work Phone: [phone] Evaluation note* Encounter Date Diagnosis Assessment Notes [...] D-10 - C90.00) Followup with Dr. Bello [place] Other 02-02-2022 Progress note Author Hunter Bello [facility] December 16, 2021 1:18pm Note Date/Time December 16, 2021 1 :17pm [facility] [place] [address] Hem/Onc Follow Up Note - OP Signed Patient: Hailee Trivedi MR#: [id number] : 1940 Acct:[id number] Age/Sex: 81 / F Type: REG RCR [...] 6 mg and cyclophosphamide 300 mg IV qyvbaa6708/15/2015, developed grade 2 anemia, fatigue and grade [...] will be to transfer her care to [facility] when [facility] is ready 2. VitB12 injections, monthly, [...] Depressed Mood [-], Anxiety [-], Stressed [-] [facility] - Medical History Medical History: Medical History [...] therapy. We will transfer her care to [facility] when they are ready. o Continue Daratumumab [...] for coordination of care (as documented) and iylg-hu-xqhm counseling of patient and/or family. Dictated By: Hunter Bello MD DD/ 15 Signed By: <Electronically signed by MD Hunter Bello> 12/16/218 [facility] Work Phone: [phone] Progress note Author Hunter Bello [facility] October 06, 2021 10:02am Note Date/Time October 06, 2021 9:58am [facility] [place] [address] Hem/Onc Follow Up Note - OP Signed Patient: Hailee Trivedi MR#: [id number] : 1940 Acct:[id number] Age/Sex: 81 / F Type: REG RCR [...] been trying to transfer her care to [facility] but they are not up [...] 6 mg and cyclophosphamide 300 mg IV zmvnat6508/15/2015, developed grade 2 anemia, fatigue and grade [...] will be to transfer her care to [facility] when [facility] is ready 2. VitB12 injections, monthly, [...] Depressed Mood [-], Anxiety [-], Stressed [-] [facility] - Medical History Medical History: Medical History [...] % (Auto) 57.1, Lymph % (Auto) 34.7, [place] % (Auto) 6.1, Eos % (Auto) 0.8, Baso % (Auto) 1.3, Neut # (Auto) 5.1, Lymph # (Auto) 3.1, [place] # (Auto) 0.5, Eos# (Auto) 0.1, Baso [...] therapy. We will transfer her care to [facility] when they are ready. o Continue Daratumumab [...] for coordination of care (as documented) and nmuj-jl-fybg counseling of patient and/or family. Dictated By: Hunter Bello MD DD/ 0957 Signed By: <Electronically signed by MD Hunter Bello> 10/06/21 1002 [facility] Work Phone: [phone] Evaluation note* Encounter Date Diagnosis Assessment Notes [...] D-10 - C90.00) Followup with Dr. Bello [facility] Other 10-26-2021 Progress note Author Hunter Bello [facility] September 08, 2021 11:19am Note Date/Time September 08, 2021 1 1:17am [facility] [place] [address] Hem/Onc Follow Up Note - OP Signed Patient: Hailee Trivedi MR#: [id number] : 1940 Acct:[id number] Age/Sex: 81 / F Type: REG RCR [...] and then transferring her care to the [facility]. She will be getting monthly [...] 6 mg and cyclophosphamide 300 mg IV vhivlh5608/15/2015, developed grade 2 anemia, fatigue and grade [...] will be to transfer her care to [facility]. 2. VitB12 injections, monthly, switched [...] Depressed Mood [-], Anxiety [-], Stressed [-] [facility] - Medical History Medical History: Medical History [...] % (Auto) 59.8, Lymph % (Auto) 31.4, [place] % (Auto) 7.0, Eos % (Auto) 1.2, Baso % (Auto) 0.6, Neut # (Auto) 5.4, Lymph # (Auto) 2.8, [place] # (Auto) 0.6, Eos# (Auto) 0.1, Baso [...] therapy See me in 1 month in [facility] for monthly daratumumab. (2) B12 deficiency anemia [...] for coordination of care (as documented) and ggms-cq-zyvo counseling of patient and/or family. Dictated By: Hunter Bello MD DD/ 1116 Signed By: <Electronically signed by MD Hunter Bello> 09/08/21 1119 [facility] Work Phone: [phone] History of Present illness Narrative* Patient is [...] recurrence. She did have noninvasive assessment at [facility], which was negative. Couple of years ago. [...] of change in cardiac status or symptoms -[facility] [address] DO Work Phone: [phone] Progress note Author Mike Bradley [facility] June 16, 2021 9:35am Note Date/Time June 16, 2021 9:2 9am [facility] [place] [id number] Hem/Onc Follow Up Note - OP Signed Patient: Hailee Trivedi MR#: [id number] : 1940 Acct:[id number] Age/Sex: 81 / F Type: REG RCR [...] M-spike of 0.2 g/dL with an IgG Marceline specificity. She hadn't had a previous SPEP [...] 6 mg and cyclophosphamide 300 mg IV khzlfx6708/15/2015, developed grade 2 anemia, fatigue and grade [...] Depressed Mood [-], Anxiety [-], Stressed [-] [facility] - Medical History Medical History: Medical History [...] NPHU-100 Insulin KwikPen) 12 unit SUBCUT QPM 09/27/18 [History Confirmed 06/16/21] atorvastatin 40 mg tablet [...] % (Auto) 34.5 % (.) 06/09/21 09:40 [place] % (Auto) 5.6 % (.) 06/09/21 09:40 Eos % (Auto) 1.1 % (.) 06/09/21 09:40 Baso % (Auto) 0.6 % (.) 06/09/21 09:40 Neut # (Auto) 4.4 x10E3/uL (1.8-7.7) 06/09/21 09:40 Lymph # (Auto) 2.6 x10E3/uL (1.00-4.8) 06/09/21 09:40 [place] # (Auto) 0.4 x10E3/uL (0.0-0.8) 06/09/21 09:40 [...] 09:40 Albumin/Globulin (PEP) 1.3 (0.7-1.7) 06/09/21 09:40 Fqlbi-7-Swqnyflqb 0.2 g/dL (0.0-0.4) 06/09/21 09:40 Nnxkl-4-Byariukfs 0.9 g/dL (0.4-1.0) 06/09/21 09:40 Beta Globulins [...] Urine pH (5.0-9.0) 02/24/21 12:05 Ur Specific [place] 1.009 (1.001-1.030) 02/24/21 12:05 Urine Protein mg/dL [...] 125 mg/24 hr (30-150) 06/09/21 09:28 U Xtqgx-5-Gteidhzi 4.3 % (.) 06/09/21 09:28 U Ewfkb-8-Rtllzrna 16.0 % (.) 06/09/21 09:28 U Beta [...] Anti-Parietal Cell Ab 1.9 Units (0.0-20.0) 02/28/19 11: Intrinsic Factor Ab 0.9 AU/mL (0.0-1.1) 02/28/19 11:21 Free Marceline LC, Quant 20.1 mg/L (3.3-19.4) H 06/09/21 09:40 Free Lambda LC, Quant 11.9 mg/L (5.7-26.3) 06/09/21 09:40 Free Marceline/Lambda Ratio 1.69 (0.26-1.65) H 06/09/21 09:40 Assessment [...] for coordination of care (as documented) and onvs-vb-dhig counseling of patient and/or family. Dictated By: Mike Bradley MD DD/ 7 Signed By: <Electronically signed by Mike Bradley MD> 06/16/21 0935 [facility] Work Phone: [phone] Progress note Author Mike Bradley [facility] May 19, 2021 2:08pm Note Date/Time May 19, 2021 1:50p m [facility] at [address] [address] Hem/Onc Follow Up Note - OP Signed Patient: Hailee Trivedi MR#: [id number] : 1940 Acct:[id number] Age/Sex: 81 / F Type: REG RCR [...] 6 mg and cyclophosphamide 300 mg IV fxfvda6608/15/2015, developed grade 2 anemia, fatigue and grade [...] Depressed Mood [-], Anxiety [-], Stressed [-] [facility] - Medical History Medical History: Medical History [...] % (Auto) 34.2 % (.) 04/14/21 11:10 [place] % (Auto) 5.7 % (.) 04/14/21 11:10 Eos % (Auto) 1.1 % (.) 04/14/21 11:10 Baso % (Auto) 0.6 % (.) 04/14/21 11:10 Neut # (Auto) 5.0 x10E3/uL (1.8-7.7) 04/14/21 11:10 Lymph # (Auto) 2.9 x10E3/uL (1.00-4.8) 04/14/21 11:10 [place] # (Auto) 0.5 x10E3/uL (0.0-0.8) 04/14/21 11:10 [...] Urine pH (5.0-9.0) 02/24/21 12:05 Ur Specific [place] 1.009 (1.001-1.030) 02/24/21 12:05 Urine Protein mg/dL [...] Ab 0.9 AU/mL (0.0-1.1) 02/28/19 11:21 Free Marceline LC, Quant 17.8 mg/L (3.3-19.4) 04/14/21 11:10 Free Lambda LC, Quant 9.2 mg/L (5.7-26.3) 04/14/21 11:10 Free Marceline/Lambda Ratio 1.93 (0.26-1.65) H 04/14/21 11:10 Assessment [...] for coordination of care (as documented) and xlty-me-gkzg counseling of patient and/or family. Dictated By: Mike Bradley MD DD/ 1349 Signed By: <Electronically signed by Mike Bradley MD> 05/19/21 1404 [facility] Work Phone: [phone] Progress note Author Margarito Buenrostro [facility] March 24, 2021 12:36pm Note Date/Time March 24, 2021 12:33 pm [facility] [place] [address] Hem/Onc Follow Up Note - OP Signed Patient: Hailee Trivedi MR#: [id number] : 1940 Acct:[id number] Age/Sex: 80 / F Type: REG RCR [...] 6 mg and cyclophosphamide 300 mg IV upavme3408/15/2015, developed grade 2 anemia, fatigue and grade [...] (Last Reviewed 04/16/20 @ 09:36 by Carol Yougner APRN) Afib CKD (chronic kidney disease) CVA [...] - Last 7 Days 03/17/21 13:30: Free Marceline LC, Quant 28.8 H, Free Lambda LC, Quant 13.2, Free Marceline/Lambda Ratio 2.18 H 03/17/21 13:30: Corrected WBC 6.1, Uncorrected WBC Count 6.1, RBC 3.56 L, Hgb 11.7 L, Hct 34.3, MCV 96.4, MCH 32.8, MCHC 34.0, RDW 13.7, Plt Count 227, MPV 10.2, Neut % (Auto) 40.5, Lymph % (Auto) 47.8, [place] % (Auto) 10.6, Eos % (Auto) 0.6, Baso % (Auto) 0.5, Neut # (Auto) 2.5, Lymph # (Auto) 2.9, [place] # (Auto) 0.6, Eos # (Auto) 0.0, [...] for coordination of care (as documented) and cmua-ri-pjkx counseling of patient and/or family. Dictated By: Margarito Buenrostro MD DD/ 123 Signed By: <Electronically signed by Margarito Buenrostro MD> 03/24/21 1236 [facility] Work Phone: [phone] Progress note Author Margarito Buenrostro [facility] February 06, 2021 10:35am Note Date/Time February 06, 2021 10: 32am [facility] [place] [address] Hem/Onc Follow Up Note - OP Signed Patient: Hailee Trivedi MR#: [id number] : 1940 Acct:[id number] Age/Sex: 80 / F Type: REG RCR [...] 6 mg and cyclophosphamide 300 mg IV eczqww2108/15/2015, developed grade 2 anemia, fatigue and grade [...] Confirmed 02/06/21] aspirin 81 mg PO DAILY 12/05/18 [History Confirmed 02/06/21] cyanocobalamin (vitamin B-12) 1,000 [...] % (Auto) 64.7, Lymph % (Auto) 27.2, [place] % (Auto) 6.2, Eos % (Auto) 1.5, Baso % (Auto) 0.4, Neut # (Auto) 4.7, Lymph # (Auto) 2.0, [place] # (Auto) 0.5, Eos# (Auto) 0.1, Baso [...] for coordination of care (as documented) and riay-ps-rnvt counseling of patient and/or family. Dictated By: Margarito Buenrostro MD DD/ 1031 Signed By: <Electronically signed by Margarito Buenrostro MD> 02/06/21 1035 [facility] Work Phone: [phone] Progress note Author Margarito Buenrostro [facility] January 08, 2021 10:17am Note Date/Time January 08, 2021 10:14am [facility] [place] [address] Hem/Onc Follow Up Note - OP Signed Patient: Hailee Trivedi MR#: [id number] : 1940 Acct:[id number] Age/Sex: 80 / F Type: REG RCR [...] 6 mg and cyclophosphamide 300 mg IV pmwrfk6008/15/2015, developed grade 2 anemia, fatigue and grade [...] plan to see in 4 weeks, repeat Marceline/lambda ratio in6-8 weeks. -Continue Acyclovir 400mg bid [...] for coordination of care (as documented) and astn-bm-wdrn counseling of patient and/or family. Dictated By: Margarito Buenrostro MD DD/ 1013 Signed By: <Electronically signed by Margarito Buenrostro MD> 01/08/21 1017 [facility] Work Phone: [phone] Progress note Author Margarito Buenrostro [facility] December 02, 2020 12:29pm Note Date/Time December 02, 2020 1 2:27pm [facility] [place] [address] Hem/Onc Follow Up Note - OP Signed Patient: Hailee Trivedi MR#: [id number] : 1940 Acct:[id number] Age/Sex: 80 / F Type: REG RCR [...] 6 mg and cyclophosphamide 300 mg IV mleppt0208/15/2015, developed grade 2 anemia, fatigue and grade [...] plan to start in 4 weeks, repeat Marceline/lambda ratio in 6weeks. -Continue Acyclovir 400mg bid [...] for coordination of care (as documented) and hbcv-th-dmxz counseling of patient and/or family. Dictated By: Margarito Buenrostro MD DD/ 1226 Signed By: <Electronically signed by Margarito Buenrostro MD> 12/02/20 5166 [facility] Work Phone: [phone] Progress note Author Margarito Buenrostro [facility] November 04, 2020 1:30pm Note Date/Time November 04, 2020 1:22pm [facility] at [address] [address] Hem/Onc Follow Up Note - OP Signed Patient: Hailee Trivedi MR#: [id number] : 1940 Acct:[id number] Age/Sex: 80 / F Type: REG RCR [...] 6 mg and cyclophosphamide 300 mg IV dsnobm7408/15/2015, developed grade 2 anemia, fatigue and grade [...] - Last 7 Days 10/28/20 11:11: Free Marceline LC, Quant , Free Lambda LC, Quant , Free Marceline/LambdaRatio Order Marceline Free K+L Assessment and Plan (1) Multiple [...] to treatment, see in 4 weeks. Her Marceline/lambda ratio was not drawn, will draw today. [...] for coordination of care (as documented) and enbx-oa-hinl counseling of patient and/or family. Dictated By: Margarito Buenrostro MD DD/ 1317 Signed By: <Electronically signed by Margarito Buenrostro MD> 11/04/20 1330 [facility] Work Phone: [phone] Progress note Author Margarito Buenrostro [facility] October 07, 2020 10:20am Note Date/Time October 07, 2020 10:18am [facility] [place] [address] Hem/Onc Follow Up Note - OP Signed Patient: Hailee Trivedi MR#: [id number] : 1940 Acct:[id number] Age/Sex: 80 / F Type: REG RCR [...] 6 mg and cyclophosphamide 300 mg IV bfgyuv9608/15/2015, developed grade 2 anemia, fatigue and grade [...] Confirmed 10/07/20] aspirin 81 mg PO DAILY 12/05/18 [History Confirmed 10/07/20] cyanocobalamin (vitamin B-12) 1,000 [...] see in 4 weeks. Plan to repeat Marceline/lambda ratio in 3 weeks. -Continue Acyclovir 400mg [...] was for coordination of care(as documented) and jscq-ju-vodm counseling of patient and/or family. Dictated By: Margarito Buenrostro MD DD/ 1017 Signed By: <Electronically signed by Margarito Buenrostro MD> 10/07/20 1020 [facility] Work Phone: [phone] Progress note Author Margarito Buenrostro [facility] September 09, 2020 10:20am Note Date/Time September 09, 2020 1 0:18am [facility] [place] [address] Hem/Onc Follow Up Note - OP Signed Patient: Hailee Trivedi MR#: [id number] : 1940 Acct:[id number] Age/Sex: 80 / F Type: REG RCR [...] 6 mg and cyclophosphamide 300 mg IV vhmfdh6708/15/2015, developed grade 2 anemia, fatigue and grade [...] - Last 7 Days 09/01/20 10:35: Free Marceline LC, Quant 19.8 H, Free Lambda LC, Quant 11.2, Free Marceline/Lambda Ratio 1.77 H Assessment and Plan (1) [...] see in 4 weeks. Plan to repeat Marceline/lambda ratio in 7 weeks. -Continue Acyclovir 400mg [...] was for coordination of care(as documented) and dhgp-pn-diuj counseling of patient and/or family. Dictated By: Margarito Buenrostro MD DD/ 1017 Signed By: <Electronically signed by Margarito Buenrostro MD> 09/09/20 1020 [facility] Work Phone: [phone] Progress note Author Margarito Buenrostro [facility] August 12, 2020 11:28am Note Date/Time August 12, 2020 11:25am [facility] [place] [address] Hem/Onc Follow Up Note - OP Signed Patient: Haliee Trivedi MR#: [id number] : 1940 Acct:[id number] Age/Sex: 80 / F Type: REG RCR [...] 6 mg and cyclophosphamide 300 mg IV lbultr1808/15/2015, developed grade 2 anemia, fatigue and grade [...] see in 4 weeks. Plan to repeat Marceline/lambda ratio in 3 weeks. -Continue Acyclovir 400mg [...] was for coordination of care(as documented) and jqam-bs-gvpl counseling of patient and/or family. Dictated By: Margarito Buenrostro MD DD/ Signed By: <Electronically signed by Margarito Buenrostro MD> 08/12/20 1128 [facility] Work Phone: [phone] Progress note Author Margarito Buenrostro [facility] July 15, 2020 10:42am Note Date/Time July 15, 2020 10:40am [facility] [place] [address] Hem/Onc Follow Up Note - OP Signed Patient: Hailee Trivedi MR#: [id number] : 1940 Acct:[id number] Age/Sex: 80 / F Type: REG RCR [...] 6 mg and cyclophosphamide 300 mg IV dkrfpb3608/15/2015, developed grade 2 anemia, fatigue and grade [...] - Last 7 Days 07/07/20 11:10: Free Marceline LC, Quant 18.5, Free Lambda LC, Quant 11.7, Free Marceline/Lambda Ratio 1.58 Assessment and Plan (1) Multiple [...] see in 4 weeks. Plan to repeat Marceline/lambda ratio in 8 weeks. -Continue Acyclovir 400mg [...] for coordination of care (as documented) and oudy-ku-zikg counseling of patient and/or family. Dictated By: Margarito Buenrostro MD DD/ 1039 Signed By: <Electronically signed by Margarito Buenrostro MD> 07/15/20 1042 [facility] Work Phone: [phone] Progress note Author Margarito Buenrostro [facility] June 17, 2020 10:25am Note Date/Time June 17, 2020 10: 22am [facility] at [address] [address] Hem/Onc Follow Up Note - OP Signed Patient: Hailee Trivedi MR#: [id number] : 1940 Acct:[id number] Age/Sex: 80 / F Type: REG RCR [...] 6 mg and cyclophosphamide 300 mg IV shxraw1008/15/2015, developed grade 2 anemia, fatigue and grade [...] (Last Reviewed 04/16/20 @ 09:36 by Carol Youngre APRN) Afib CKD (chronic kidney disease) CVA [...] see in 4 weeks. Plan to repeat Marceline/lambda ratio in 4 weeks. -Continue Acyclovir 400mg [...] was for coordination of care(as documented) and npzt-xb-dbpd counseling of patient and/or family. Dictated By: Margarito Buenrostro MD DD/ 1022 Signed By: <Electronically signed by Margarito Buenrostro MD> 06/17/20 1025 [facility] Work Phone: [phone] Progress note Author Margarito Buenrostro [facility] May 20, 2020 10:10am Note Date/Time May 20, 2020 10:00 am [facility] at [address] [address] Hem/Onc Follow Up Note - OP Signed Patient: Hailee Trivedi MR#: [id number] : 1940 Acct:[id number] Age/Sex: 80 / F Type: REG RCR [...] 6 mg and cyclophosphamide 300 mg IV bjrypj7908/15/2015, developed grade 2 anemia, fatigue and grade [...] - Last 7 Days 05/13/20 10:09: Free Marceline LC, Quant 18.5, Free Lambda LC, Quant 9.6, Free Marceline/Lambda Ratio 1.93 H 05/13/20 10:09: PHA Creatinine Clear 20.5529899230, Sodium 138, Potassium 4.6, Chloride 112, Carbon [...] Neut % (Auto) 59.3,Lymph % (Auto) 31.6, [place] % (Auto) 7.5, Eos % (Auto) 1.1, Baso % (Auto) 0.5, Neut # (Auto) 4.6, Lymph # (Auto) 2.4, [place] # (Auto) 0.6, Eos # (Auto) 0.1, [...] see in 4 weeks. Plan to repeat Marceline/lambda ratio in 8 weeks. We will update [...] for coordination of care (as documented) and mhhl-gk-boef counseling of patient and/or family. Dictated By: Margarito Buenrostro MD DD/ 0958 Signed By: <Electronically signed by Margarito Buenrostro MD> 05/20/20 1010 [facility] Work Phone: [phone] Progress note Author Carol Younger [facility] April 16, 2020 10:49am Note Date/Time April 16, 2020 9:10a m [facility] at [address] [address] Hem/Onc Follow Up Note - OP Signed Patient: Hailee Trivedi MR#: [id number] : 1940 Acct:[id number] Age/Sex: 79 / F Type: REG RCR [...] 6 mg and cyclophosphamide 300 mg IV yyzlbp9208/15/2015, developed grade 2 anemia, fatigue and grade [...] - Last 7 Days 04/09/20 09:35: Free Marceline LC, Quant 16.6, Free Lambda LC, Quant 9.8, Free Marceline/Lambda Ratio 1.69 H 04/09/20 09:35: PHA Creatinine Clear 19.9898582269, Sodium 138, Potassium 4.6, Chloride 111, Carbon [...] Neut % (Auto) 62.6,Lymph % (Auto) 29.5, [place] % (Auto) 5.8, Eos % (Auto) 1.5, Baso % (Auto) 0.6, Neut # (Auto) 4.2, Lymph # (Auto) 2.0, [place] # (Auto) 0.4, Eos # (Auto) 0.1, [...] The patient is also followed by nephrology -Marceline/lambda ratio mild improvement 1.69 -Continue Acyclovir 400mg [...] for coordination of care (as documented) and abbv-rt-areb counseling of patient and/or family. Dictated By: Carol Younger APRN DD/ 0909 Signed By: <Electronically signed by RAMAKRISHNA Younger> 04/16/20 1049 [facility] Work Phone: [phone] Progress note Author Margarito Buenrostro [facility] March 19, 2020 8:55am Note Date/Time March 19, 2020 8:37[facility] at [place] [address] Hem/Onc Follow Up Note - OP Signed Patient: Hailee Trivedi MR#: [id number] : 1940 Acct:[id number] Age/Sex: 79 / F Type: REG RCR [...] 6 mg and cyclophosphamide 300 mg IV mvxmvt4308/15/2015, developed grade 2 anemia, fatigue and grade [...] for coordination of care (as documented) and bbrh-xp-hkdd counseling of patient and/or family. Dictated By: Margarito Buenrostro MD DD/ Signed By: <Electronically signed by Margarito Buenrostro MD> 03/19/20 0855 [facility] Work Phone: [phone] Progress note Author Margarito Buenrostro [facility] January 09, 2020 9:15am Note Date/Time January 09, 2020 9:12am [facility] at [address] [address] Hem/Onc Follow Up Note - OP Signed Patient: Hailee Trivedi MR#: [id number] : 1940 Acct:[id number] Age/Sex: 79 / F Type: REG RCR [...] 6 mg and cyclophosphamide 300 mg IV vwvusd5608/15/2015, developed grade 2 anemia, fatigue and grade [...] Neut % (Auto) 64.3,Lymph % (Auto) 25.2, [place] % (Auto) 7.0, Eos % (Auto) 3.0, Baso % (Auto) 0.5, Neut # (Auto) 4.3, Lymph # (Auto) 1.7, [place] # (Auto) 0.5, Eos # (Auto) 0.2, Baso# (Auto) 0.0, Nucleated RBC % (auto) 0.0 01/03/20 09:10: Free Marceline LC, Quant 17.3, Free Lambda LC, Quant 10.2, Free Marceline/Lambda Ratio 1.70 H Assessment and Plan (1) [...] and sustained response. -Labs adequate to treat, Marceline light chain level slightly trend upwards, but still stable, will proceed to Daratumumab today, will see her back in 6 weeks, plan to repeat K/L light chains in 5 weeks ahead of time, if Marceline light chain continue to go up, plan [...] for coordination of care (as documented) and wtoc-lq-ktnz counseling of patient and/or family. Dictated By: Margarito Buenrostro MD DD/ 0 Signed By: <Electronically signed by Margarito Buenrostro MD> 01/09/20914 [facility] Work Phone: [phone] Progress note Author Margarito Buenrostro [facility] November 28, 2019 10:50am Note Date/Time November 28, 2019 9 :43am [facility] [place] [address] Hem/Onc Follow Up Note - OP Signed Patient: Hailee Trivedi MR#: [id number] : 1940 Acct:[id number] Age/Sex: 79 / F Type: REG RCR [...] 6 mg and cyclophosphamide 300 mg IV fjxckm4608/15/2015, developed grade 2 anemia, fatigue and grade [...] - Last 7 Days 11/20/19 14:30: Free Marceline LC, Quant 14.5, Free Lambda LC, Quant 7.7, Free Marceline/Lambda Ratio 1.88 H Assessment and Plan (1) [...] and sustained response. -Labs adequate to treat, Marceline light chain level slightly trend upwards, will proceed to Daratumumab today, will see her back in 6 weeks, plan to repeat K/L light chains in 5 weeks ahead of time, if Marceline light chain continue to go up, plan [...] for coordination of care (as documented) and yokg-jf-ltkv counseling of patient and/or family. Dictated By: Margarito Buenrostro MD DD/ 0943 Signed By: <Electronically signed by Margarito Buenrostro MD> 11/28/19 1050 [facility] Work Phone: [phone] 326-177912-04-2019 Progress note Author Margarito Buenrostro [facility] October 17, 2019 9:37am Note Date/Time October 17, 2019 9 :30am [facility] [place] [address] Hem/Onc Follow Up Note - OP Signed Patient: Hailee Trivedi MR#: [id number] : 1940 Acct:[id number] Age/Sex: 79 / F Type: REG RCR Copies to: Curt Clark MD~ Subjective Date/Time of Service: Date of Service: 10/17/2019 Time of Service: 09:26 Chief Complaint: Follow up appt prior to treatment doing well HPI: Hailee presents for routine follow up; prior to Daratumumab. 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 She elected to not stay. [...] 6 mg and cyclophosphamide 300 mg IV bwvqre5608/15/2015, developed grade 2 anemia, fatigue and grade [...] for coordination of care (as documented) and bhus-bc-kweg counseling of patient and/or family. Dictated By: Margarito Buenrostro MD DD/ 5 Signed By: <Electronically signed by Margarito Buenrostro MD> 10/17/1937 [facility] Work Phone: [phone] Progress note Author Margarito Buenrostro [facility] July 25, 2019 8:31am Note Date/Time July 25, 2019 8:30am [facility] [place] [address] Hem/Onc Follow Up Note - OP Signed Patient: Hailee Trivedi MR#: [id number] : 1940 Acct:[id number] Age/Sex: 79 / F Type: REG RCR [...] 6 mg and cyclophosphamide 300 mg IV fuqqqc0108/15/2015, developed grade 2 anemia, fatigue and grade [...] - Last 7 Days 07/18/19 08:54: Free Marceline LC, Quant 16.4, Free Lambda LC, Quant 10.9, Free Marceline/Lambda Ratio 1.50 07/18/19 08:54: PHA Creatinine Clear [id number], Sodium 139, Potassium 4.6, Chloride 110, Carbon [...] % (Auto) 64.4, Lymph % (Auto) 27.6, [place] % (Auto) 6.8, Eos % (Auto) 0.7, Baso % (Auto) 0.5, Neut # (Auto) 4.2, Lymph # (Auto) 1.8, [place] # (Auto) 0.4, Eos # (Auto) 0.0,Baso [...] for coordination of care (as documented) and whhu-yc-hhck counseling of patient and/or family. Dictated By: Margarito Buenrostro MD DD/ 9 Signed By: <Electronically signed by Margarito Buenrostro MD> 07/25/19830 [facility] Work Phone: [phone] Progress note Author Margarito Buenrostro [facility] June 13, 2019 8:37am Note Date/Time June 13, 2019 8:34 am [facility] [place] [address] Hem/Onc Follow Up Note - OP Signed Patient: Hailee Trivedi MR#: [id number] : 1940 Acct:[id number] Age/Sex: 79 / F Type: REG RCR Copies to: Curt Clark MD~ Subjective Date/Time of Service: Date of Service: 06/13/2019 Time of Service: 08:34 Chief Complaint: Follow up appt prior to treatment - Diagnosis DIAGNOSIS: DIAGNOSIS: 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 [...] CVA 2018. SOCIAL HISTORY: Lives with in [place]. HPI: Hailee presents for routine follow up; [...] 6 mg and cyclophosphamide 300 mg IV rpkhbk0608/15/2015, developed grade 2 anemia, fatigue and grade [...] for coordination of care (as documented) and ratm-zq-njji counseling of patient and/or family. Dictated By: Margarito Buenrostro MD DD/ 3 Signed By: <Electronically signed by Margarito Buenrostro MD> 06/13/1935 [facility] Work Phone: [phone] Progress note Author Margarito Buenrostro [facility] May 02, 2019 8:38am Note Date/Time May 02, 2019 8:33 am [facility] [address] Hem/Onc Follow Up Note - OP Signed Patient: Hailee Trivedi MR#: [id number] : 1940 Acct:[id number] Age/Sex: 78 / F Type: REG RCR Copies to: Curt Clark MD~ Subjective Date/Time of Service: Date of Service: 05/02/2019 Time of Service: 08:32 Chief Complaint: Follow up appt prior to treatment no new concerns - Diagnosis DIAGNOSIS: DIAGNOSIS: 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 [...] CVA 2018. SOCIAL HISTORY: Lives with in [place]. HPI: Hailee presents for routine follow up; [...] 6 mg and cyclophosphamide 300 mg IV nqhzmj2708/15/2015, developed grade 2 anemia, fatigue and grade [...] - Last 7 Days 04/25/19 11:05: Free Marceline LC, Quant 16.9, Free Lambda LC, Quant 10.8, Free Marceline/Lambda Ratio 1.56 04/25/19 11:05: WBC 6.5, Corrected WBC 6.5, RBC 3.81, Hgb 12.2, Hct 36.4, MCV 95.7, MCH 32.1, MCHC 33.6, RDW 13.7, Plt Count 182, MPV 9.9, Neut % (Auto) 65.0,Lymph % (Auto) 26.9, [place] % (Auto) 7.0, Eos % (Auto) 0.6, Baso % (Auto) 0.5, Neut # (Auto) 4.2, Lymph # (Auto) 1.8, [place] # (Auto) 0.5, Eos # (Auto) 0.0, [...] for coordination of care (as documented) and vaup-oy-hgyz counseling of patient and/or family. Dictated By: Margarito Buenrostro MD DD/ 1 Signed By: <Electronically signed by Margarito Buenrostro MD> 05/02/1936 [facility] Work Phone: [phone] Progress note Author Margarito Buenrostro [facility] March 07, 2019 10:22am Note Date/Time March 07, 2019 10: 19am [facility] at [address] [address] Hem/Onc Follow Up Note - OP Signed Patient: Hailee Trivedi MR#: [id number] : 1940 Acct:[id number] Age/Sex: 78 / F Type: REG RCR Copies to: Curt Clark MD~ Subjective Date/Time of Service: Date of Service: 03/07/2019 Time of Service: 08:16 Chief Complaint: Follow up appt prior to treatment - Diagnosis DIAGNOSIS: DIAGNOSIS: 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 [...] CVA 2018. SOCIAL HISTORY: Lives with in [place]. HPI: Hailee presents for routine follow up; [...] Joseph Block M.D.01/02/2019 10:11 AM Dictation Location: [facility] Any impression(s) listed above is documentation that [...] for coordination of care (as documented) and xqpo-yn-fdkp counseling of patient and/or family. Dictated By: Margarito Buenrostro MD DD/ 1016 Signed By: <Electronically signed by Margarito Buenrostro MD> 03/07/19 5010 [facility] Work Phone: [phone] Progress note Author Margarito Buenrostro [facility] January 10, 2019 8:49am Note Date/Time January 10, 2019 8:43am [facility] [place] [id number] Hem/Onc Follow Up Note - OP Signed Patient: Hailee Trivedi MR#: [id number] : 1940 Acct:[id number] Age/Sex: 78 / F Type: REG RCR Copies to: Curt Clark MD~ Subjective Date/Time of Service: Date of Service: 01/10/2019 Time of Service: 08:42 Chief Complaint: Follow up appt prior to treatment has had leg weakness - Diagnosis DIAGNOSIS: DIAGNOSIS: 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 [...] CVA 2018. SOCIAL HISTORY: Lives with in [place]. HPI: Hailee presents for routine follow up; prior to Cycle 19 Daratumumab. Patient had sudden onset weakness during blood draw for her labs last week, she was evaluated by ER, CT head at that point did not evidence of bleeding. She was released, she is currently wearing a cardiac specialist. Her legs are little weak,otherwise she has [...] 6 mg and cyclophosphamide 300 mg IV xlfmhg3908/15/2015, developed grade 2 anemia, fatigue and grade [...] - Last 7 Days 01/02/19 09:35: Free Marceline LC, Quant 14.9, Free Lambda LC, Quant 8.9, Free Marceline/Lambda Ratio 1.67 H - Impressions ITS Impressions [...] Joseph Block M.D.01/02/2019 10:11 AM Dictation Location: [facility] Any impression(s) listed above is documentation that [...] for coordination of care (as documented) and znfi-bt-dkaz counseling of patient and/or family. Dictated By: Margarito Buenrostro MD DD/ Signed By: <Electronically signed by Margarito Buenrostro MD> 01/10/1947 [facility] Work Phone: [phone] Progress note Author Anna Marie Mcnamara [facility] January 02, 2019 4:51pm Note Date/Time January 02, 2019 4:51pm [facility] [address] [place] [address] Event Note Signed Patient: Hailee Trivedi MR#: [id number] : 1940 Acct:[id number] Age/Sex: 78 / F Adm Date: 9 Loc: XT Room: Type: [facility] Attending Dr: Margarito Buenrostro MD Copies to: [...] by Anna Marie Mcnamara MD> 01/02/19 1651 [facility] Work Phone: [phone] Progress note Author Margarito Buenrostro [facility] November 15, 2018 8:49am Note Date/Time November 15, 2018 8: 45am [facility] [place] [address] Hem/Onc Follow Up Note - OP Signed Patient: Hailee Trivedi MR#: [id number] : 1940 Acct:[id number] Age/Sex: 78 / F Type: REG RCR Copies to: Curt Clark MD~ Subjective Date/Time of Service: Date of Service: 11/15/2018 Time of Service: 08:43 Chief Complaint: Follow up appt myloma no new concerns - Diagnosis DIAGNOSIS: DIAGNOSIS: 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 [...] CVA 2018. SOCIAL HISTORY: Lives with in [place]. HPI: Hailee presents for routine follow up; [...] 6 mg and cyclophosphamide 300 mg IV sleowg3808/15/2015, developed grade 2 anemia, fatigue and grade [...] for coordination of care (as documented) and pctj-xa-vglu counseling of patient and/or family. Dictated By: Margarito Buenrostro MD DD/ 0843 Signed By: <Electronically signed by Margarito Buenrostro MD> 11/15/18 0849 [facility] Work Phone: [phone] Progress note Author Lisa Devine [facility] October 18, 2018 9:34am Note Date/Time October 18, 2018 9 :30am [facility] at [address] [address] Hem/Onc Follow Up Note - OP Signed Patient: Hailee Trivedi MR#: [id number] : 1940 Acct:[id number] Age/Sex: 78 / F Type: REG RCR Copies to: Curt Clark MD~ Subjective Date/Time of Service: Date of Service: 10/18/2018 Time of Service: 09:27 Chief Complaint: Patient here for one month follow up appointment for Multiple myeloma to be seen before C16 Daratumumab. - Diagnosis DIAGNOSIS: DIAGNOSIS: 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 [...] DM-II, CKD-3. SOCIAL HISTORY: Lives with in [place]. HPI: Hailee presents for routine follow up; [...] 6 mg and cyclophosphamide 300 mg IV acrtjn4508/15/2015, developed grade 2 anemia, fatigue and grade [...] HAILEE IgA 65, HAILEE IgM 38, Free Marceline LC, Quant 15.8, Free Lambda LC, Quant 9.7, Free Marceline/Lambda Ratio 1.63 10/13/18 09:10: PHA Creatinine Clear [id number], Sodium 137, Potassium 4.1, Chloride 107, Carbon [...] % (Auto) 64.5, Lymph % (Auto) 27.4, [place] % (Auto) 6.8, Eos % (Auto) 0.8, Baso % (Auto) 0.5, Neut # (Auto) 4.2, Lymph # (Auto) 1.8, [place] # (Auto) 0.4, Eos # (Auto) 0.1, [...] for coordination of care (as documented) and xvwc-rb-eymr counseling of patient and/or family. Dictated By: Lisa Devine DD/ 0927 Signed By: <Electronically signed by Lisa Devine> 10/18/18 0934 [facility] Work Phone: [phone] Progress note Author Jacklyn Cornelius [facility] September 20, 2018 8:53am Note Date/Time September 20, 2018 8 :43am [facility] at [address] [address] Hem/Onc Follow Up Note - OP Signed Patient: Hailee Trivedi MR#: [id number] : 1940 Acct:[id number] Age/Sex: 78 / F Type: REG RCR Copies to: Curt Clark MD~ Subjective Date/Time of Service: Date of Service: 09/20/2018 Time of Service: 08:38 Chief Complaint: Multiple myeloma follow up appt day of treatment continues to have some dizziness - Diagnosis DIAGNOSIS: 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 [...] DM-II, CKD-3. SOCIAL HISTORY: Lives with in [place]. HPI: Mrs. Bright is here today to [...] an MRI of the brain done at [place] under the direction of the neurologist. It [...] 6 mg and cyclophosphamide 300 mg IV rftbon5908/15/2015, developed grade 2 anemia, fatigue and grade [...] - Last 7 Days 09/13/18 11:15: Free Marceline LC, Quant 15.3, Free Lambda LC, Quant 13.0, Free Marceline/Lambda Ratio 1.18 09/13/18 11:15: PHA Creatinine Clear 21.1643608608, Sodium 140, Potassium 4.6, Chloride 109, Carbon [...] % (Auto) 58.9, Lymph % (Auto) 30.7, [place] % (Auto) 8.9, Eos % (Auto) 1.2, Baso % (Auto) 0.3, Neut # (Auto) 3.5, Lymph # (Auto) 1.8, [place] # (Auto) 0.5, Eos # (Auto) 0.1, [...] for coordination of care (as documented) and fuqq-fs-rlck counseling of patient and/or family. 25 - 35 minutes Dictated By: Jacklyn Cornelius MD DD/ 0838 Signed By: <Electronically signed by Jacklyn Cornelius MD> 09/20/18 0853 [facility] Work Phone: [phone] Progress note Author Margarito Buenrostro [facility] August 09, 2018 9:41am Note Date/Time August 09, 2018 9:29am [facility] [place] [address] Hem/Onc Follow Up Note - OP Signed Patient: Hailee Trivedi MR#: [id number] : 1940 Acct:[id number] Age/Sex: 78 / F Type: REG RCR Copies to: Curt Clark MD~ Subjective Date/Time of Service: Date of Service: 08/09/2018 Time of Service: 09:28 Chief Complaint: Follow up appt on treatment multiple myeloma has infected toothbeing treated - Diagnosis DIAGNOSIS: 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 [...] DM-II, CKD-3. SOCIAL HISTORY: Lives with in [place]. HPI: Mrs. Trivedi is seen as scheduled. [...] 6 mg and cyclophosphamide 300 mg IV arruus0708/15/2015, developed grade 2 anemia, fatigue and grade [...] her MRI report (to be done in [place]). See in 5 weeks by SHAHID Bell, [...] for coordination of care (as documented) and tacw-cc-btgj counseling of patient and/or family. 25 - 35 minutes Dictated By: Margarito Buenrostro MD DD/ 6 Signed By: <Electronically signed by Margarito Buenrostro MD> 08/09/18940 [facility] Work Phone: [phone] Progress note Author Margarito Buenrostro [facility] July 12, 2018 9:09am Note Date/Time July 12, 2018 8: 33am [facility] [place] [address] Hem/Onc Follow Up Note - OP Signed Patient: Hailee Trivedi MR#: [id number] : 1940 Acct:[id number] Age/Sex: 78 / F Type: REG RCR Copies to: Curt Clark MD~ Subjective Date/Time of Service: Date of Service: 07/12/2018 Time of Service: 08:33 Chief Complaint: Follow up appt treatment today - Diagnosis DIAGNOSIS: 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 [...] DM-II, CKD-3. SOCIAL HISTORY: Lives with in [place]. HPI: Mrs. Trivedi is seen as scheduled. [...] 6 mg and cyclophosphamide 300 mg IV dxaiyu9008/15/2015, developed grade 2 anemia, fatigue and grade [...] potassium 4.2, creatinine 2.55, calcium 8.7 Free Marceline LC, Quant 14.0 mg/L (3.3-19.4) 06/28/18 10:45 Free Lambda LC, Quant 9.7 mg/L (5.7-26.3) 06/28/18 10:45 Free Marceline/Lambda Ratio 1.44 (0.26-1.65) 06/28/18 10:45 Total Bilirubin [...] for coordination of care (as documented) and svdl-dp-bzeq counseling of patient and/or family. 25 - 35 minutes Dictated By: Margarito Buenrostro MD DD/ 0833 Signed By: <Electronically signed by Margarito Buenrostro MD> 07/12/18 0909 [facility] Work Phone: [phone] Progress note Author Margarito Buenrostro [facility] May 18, 2018 8:51am Note Date/Time May 18, 2018 8:44a m [facility] [place] [address] Hem/Onc Follow Up Note - OP Signed Patient: Hailee Trivedi MR#: [id number] : 1940 Acct:[id number] Age/Sex: 78 / F Type: REG RCR Copies to: Curt Clark MD~ Subjective Date/Time of Service: Date of Service: 05/18/2018 Time of Service: 08:42 Chief Complaint: weak today - Diagnosis DIAGNOSIS: 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 [...] DM-II, CKD-3. SOCIAL HISTORY: Lives with in [place]. HPI: Mrs. Trivedi is seen as scheduled. [...] 6 mg and cyclophosphamide 300 mg IV fflmfa8708/15/2015, developed grade 2 anemia, fatigue and grade [...] 7: 05/09/18 13:45 05/09/18 13:45 Labs: Free Marceline LC, Quant 15.0 mg/L (3.3-19.4) 05/09/18 13:45 Free Lambda LC, Quant 10.8 mg/L (5.7-26.3) 05/09/18 13:45 Free Marceline/Lambda Ratio 1.39 (0.26-1.65) 05/09/18 13:45 HbA1C 7.7 [...] for coordination of care (as documented) and hdto-ch-kpmg counseling of patient and/or family. Greater than 35 minutes Dictated By: Margarito Buenrostro MD DD/ 0842 Signed By: <Electronically signed by Margarito Buenrostro MD> 05/18/18 0851 [facility] Work Phone: [phone] Progress note Author Margarito Buenrostro [facility] April 19, 2018 1:08pm Note Date/Time April 19, 2018 8:33a m [facility] [address] Hem/Onc Follow Up Note - OP Signed Patient: Hailee Trivedi MR#: [id number] : 1940 Acct:[id number] Age/Sex: 77 / F Type: REG RCR Copies to: Curt Clark MD~ Subjective Date/Time of Service: Date of Service: 04/19/2018 Time of Service: 08:32 Chief Complaint: Follow up appt - Diagnosis DIAGNOSIS: 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 [...] DM-II, CKD-3. SOCIAL HISTORY: Lives with in [place]. HPI: Mrs. Trivedi is seen as scheduled. [...] 6 mg and cyclophosphamide 300 mg IV nuupjo5408/15/2015, developed grade 2 anemia, fatigue and grade [...] for coordination of care (as documented) and gmrt-er-mhjj counseling of patient and/or family. 25 - 35 minutes Dictated By: Margarito Buenrostro MD DD/ 0832 Signed By: <Electronically signed by Margarito Buenrostro MD> 04/19/18 2510 [facility] Work Phone: [phone] 230-601305-02-2018 Progress note Author Margarito Buenrostro [facility] March 15, 2018 8:43am Note Date/Time March 15, 2018 8:38am [facility] at [address] [address] Hem/Onc Follow Up Note - OP Signed Patient: Hailee Trivedi MR#: [id number] : 1940 Acct:[id number] Age/Sex: 77 / F Type: REG RCR Copies to: Curt Clark MD, Patrick MD~ Subjective Date/Time of Service: Date of Service: 03/15/2018 Time of Service: 08:37 Chief Complaint: Follow up appt - Diagnosis DIAGNOSIS: 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 [...] DM-II, CKD-3. SOCIAL HISTORY: Lives with in [place]. HPI: Mrs. Trivedi is seen as scheduled. She reports had lithotripsy, then she developed pain involving bilateral wrist, elbows, and shoulder, primarily in themuscle. She went to [place] ER, took x-rays, no acute process was [...] 6 mg and cyclophosphamide 300 mg IV jeearl7908/15/2015, developed grade 2 anemia, fatigue and grade [...] Albumin 3.8 gm/dL (3.2-5.5) 03/08/18 11:50 Free Marceline LC, Quant 18.6 mg/L (3.3-19.4) 03/08/18 11:50 Free Lambda LC, Quant 12.5 mg/L (5.7-26.3) 03/08/18 11:50 Free Marceline/Lambda Ratio 1.49 (0.26-1.65) 03/08/18 11:50 Assessment and [...] Daratumumab to next week, orders placed. Continue Qzvbjeupa557yt bid for Herpes Zoster prophylaxis. See in [...] for coordination of care (as documented) and qanr-nm-addo counseling of patient and/or family. 25 - 35 minutes Dictated By: Margarito Buenrostro MD DD/ Signed By: <Electronically signed by Margarito Buenrostro MD> 03/15/18 0843 [facility] Work Phone: [phone] Progress note Author Margarito Buenrostro [facility] January 18, 2018 10:51am Note Date/Time January 18, 2018 10:4 4am [facility] [place] [address] Hem/Onc Follow Up Note - OP Signed Patient: Hailee Trivedi MR#: [id number] : 1940 Acct:[id number] Age/Sex: 77 / F Type: REG RCR Copies to: Curt Clark MD~ Subjective Date/Time of Service: Date of Service: 01/18/2018 Time of Service: 10:42 Chief Complaint: Follow up appt - Diagnosis DIAGNOSIS: 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 [...] DM-II, CKD-3. SOCIAL HISTORY: Lives with in [place]. HPI: Mrs. Trivedi is seen as scheduled. She reports double vision has improved after a triple to [place]. Her hearing is improving too. Fatigued as [...] 6 mg and cyclophosphamide 300 mg IV ayzmtk2108/15/2015, developed grade 2 anemia, fatigue and grade [...] 7: 01/10/18 10:13 01/10/18 10:13 Labs: Free Marceline LC, Quant 14.2 mg/L (3.3-19.4) 01/10/18 10:13 Free Lambda LC, Quant 11.4 mg/L (5.7-26.3) 01/10/18 10:13 Free Marceline/Lambda Ratio 1.25 (0.26-1.65) 01/10/18 10:13 Assessment and [...] for coordination of care (as documented) and oxpw-jm-lnuv counseling of patient and/or family. 25 - 35 minutes Dictated By: Margarito Buenrostro MD DD/ 1042 Signed By: <Electronically signed by Margarito Buenrostro MD> 01/18/18 1051 [facility] Work Phone: [phone] Progress note Author Margarito Buenrostro [facility] November 23, 2017 10:25am Note Date/Time November 23, 2017 1 0:19am [facility] [place] [address] Hem/Onc Follow Up Note - OP Signed Patient: Hailee Trivedi MR#: [id number] : 1940 Acct:[id number] Age/Sex: 77 / F Type: REG RCR Copies to: Curt Clark MD~ Subjective Date/Time of Service: Date of Service: 11/23/2017 Time of Service: 10:18 Chief Complaint: Follow up appt - Diagnosis DIAGNOSIS: 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 [...] 6 mg and cyclophosphamide 300 mg IV gcqksc7008/15/2015, developed grade 2 anemia, fatigue and grade [...] 7: 11/16/17 08:35 11/16/17 08:35 Labs: Free Marceline LC, Quant 17.9 mg/L (3.3-19.4) 11/16/17 08:35 Free Lambda LC, Quant 10.5 mg/L (5.7-26.3) 11/16/17 08:35 Free Marceline/Lambda Ratio 1.70 (0.26-1.65) H 11/16/17 08:35 Assessment [...] to resume Daratumumab. -She will go to [place] in December, would like to resume therapy [...] for coordination of care (as documented) and vtuo-gx-ryyj counseling of patient and/or family. 25 - 35 minutes Dictated By: Margarito Buenrostro MD DD/ 1018 Signed By: <Electronically signed by Margarito Buenrostro MD> 11/23/17 1025 [facility] Work Phone: [phone] 614-875212-06-2017 Progress note Author Margarito Buenrostro [facility] October 19, 2017 9:19am Note Date/Time October 19, 2017 8 :42am [facility] [place] [id number] Hem/Onc Follow Up Note - OP Signed Patient: Hailee Trivedi MR#: [id number] : 1940 Acct:[id number] Age/Sex: 77 / F Type: REG RCR Copies to: Curt Clark MD, Jeffrey DO~ Subjective Date/Time of Service: Date of Service: 10/19/2017 Time of Service: 08:42 Chief Complaint: Follow up appt - Diagnosis DIAGNOSIS: 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 [...] 6 mg and cyclophosphamide 300 mg IV [id number]/15/2015, developed grade 2 anemia, fatigue and grade [...] 7: 10/14/17 13:43 10/14/17 13:43 Labs: Free Marceline LC, Quant 15.6 mg/L (3.3-19.4) 10/14/17 13:43 Free Lambda LC, Quant 9.4 mg/L (5.7-26.3) 10/14/17 13:43 Free Marceline/Lambda Ratio 1.66 (0.26-1.65) H 10/14/17 13:43 Assessment [...] for coordination of care (as documented) and tkqu-[id number] counseling of patient and/or family. less than 15 minutes Dictated By: Margarito Buenrostro MD DD/ Signed By: <Electronically signed by Margarito Buenrostro MD> 10/19/17 0919 [facility] Work Phone: 1(290) 716-690011-08-2017 Progress note Author Margarito Buenrostro [facility] September 21, 2017 8:54am Note Date/Time September 21, 2017 8 :50am [facility] [place] [address] Hem/Onc Follow Up Note - OP Signed Patient: Hailee Trivedi MR#: [id number] : 1940 Acct:[id number] Age/Sex: 77 / F Type: REG RCR Copies to: Curt Clark MD, Jeffrey DO~ Subjective Date/Time of Service: Date of Service: 09/21/2017 Time of Service: 08:48 Chief Complaint: Follow up appt - Diagnosis DIAGNOSIS: 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 [...] diagnosed 12/2015, presentation was dizziness. HPI: Mrs. Missler is seen on Daratumumab. She reports overall [...] 6 mg and cyclophosphamide 300 mg IV bdtwpc3008/15/2015, developed grade 2 anemia, fatigue and grade [...] 7: 09/15/17 10:45 09/15/17 10:45 Labs: Free Marceline LC, Quant 14.4 mg/L (3.3-19.4) 09/15/17 10:45 Free Lambda LC, Quant 9.3 mg/L (5.7-26.3) 09/15/17 10:45 Free Marceline/Lambda Ratio 1.55 (0.26-1.65) 09/15/17 10:45 Assessment and [...] for coordination of care (as documented) and fklc-fo-kulv counseling of patient and/or family. 25 - 35 minutes Dictated By: Margarito Buenrostro MD DD/ Signed By: <Electronically signed by Margarito Buenrostro MD> 09/21/17 0854 [facility] Work Phone: [phone] 581-922509-13-2017 Progress note Author Margarito Buenrostro [facility] July 27, 2017 8:53am Note Date/Time July 27, 2017 8:46am [facility] [place] [address] Hem/Onc Follow Up Note - OP Signed Patient: Hailee Trivedi MR#: [id number] : 1940 Acct:[id number] Age/Sex: 77 / F Type: REG RCR cc: Curt Clark MD, Jeffrey DO Qadir, Abdul MD~ Subjective Date/Time of Service: Date of Service: 07/27/2017 Time of Service: 08:44 Chief Complaint: Follow up appt - Diagnosis DIAGNOSIS: 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 [...] 6 mg and cyclophosphamide 300 mg IV [id number]/15/2015, developed grade 2 anemia, fatigue and grade [...] Chem 7: 07/21/17 08:50 07/21/17 08:50 Labs: Marceline and lambda light chain levels low, and [...] for coordination of care (as documented) and ohpq-sl-hzze counseling of patient and/or family. 25 - 35 minutes Dictated By: Margarito Buenrostro MD DD/ 3 Signed By: <Electronically signed by Margarito Buenrostro MD> 07/27/1753 [facility] Work Phone: Evaluation + Plan note Future Appointments Appointment Date:01/10/2023 10:45:00 AM Scheduled Provider:Tyree PARK MD Location:[facility] Appointment Type:URO Office Visit [facility] evalavlfhp + Plan note Future Appointments Appointment Date:01/09/2024 08:45:00 AM Scheduled Provider:Tyree PARK MD Location:[facility] Appointment Type:URO Office Visit Diagnostic Tests Pending * Urine Cytology ([facility]) 01/10/23 [facility] evaluation noteNo [employer] Other Evaluation note* Diagnosis Onset Date Resolution [...] chronic Steroid-induced hyperglycemia chronic Unsteady gait resolved [facility] Work Phone: Evaluation note* Diagnosis Persistent atrial fibrillation with RVR (CMS/HCC)- Primary Aortic valve regurgitation, nonrheumatic Ascending aorta dilation (CMS/HCC) Thoracic aneurysm without mention of rupture Essential hypertension Unspecified essential hypertension Pulmonary hypertension (CMS/HCC) Other chronic pulmonary heart diseases Stage 3a chronic kidney disease (CMS/HCC) documented in this encounter [facility] Work Phone: Evaluation note* Diagnosis Aortic valve regurgitation, nonrheumatic Ascending aorta dilation (CMS/HCC) Thoracic aneurysm without mention of rupture Pulmonary hypertension (CMS/HCC) Other chronic pulmonary heart diseases documented in this encounter [facility] Work Phone: Evaluation note* Diagnosis Aortic valve regurgitation, nonrheumatic Ascending aorta dilation (CMS/HCC) Thoracic aneurysm without mention of rupture Pulmonary hypertension (CMS/HCC) Other chronic pulmonary heart diseases documented in this encounter [facility] Work Phone: Evaluation note* Diagnosis Onset [...] 4, GFR 15-29 ml/min acute Hyperlipidemia acute [id number] acute Metabolic acidemia acute Multiple myeloma acute Secondary hyperparathyroidism of renal origin acute 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 [facility] Work Phone: Evaluation note* Diagnosis Onset Date Resolution Status CKD (chronic kidney disease) stage 4, GFR 15-29 ml/min acute Hyperlipidemia acute [id number] acute Metabolic acidemia acute Multiple myeloma acute [...] myeloma in remission chronic Unsteady gait resolved [facility] Work Phone: Evaluation note* Diagnosis Onset Date Resolution Status Multiple myeloma acute Cerebellar stroke, acute acu te CKD (chronic kidney disease) stage 4, GFR 15-29 ml/min acute Diabetes mellitus type II, controlled acute Hyperlipidemia acute Atrial fibrillation chronic HTN (hypertension) chronic 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 Multiple myeloma in remission chronic Unsteady gait resolved UTI (urinary tract infection) acute [facility] Work Phone: Evaluation note* Diagnosis Essential hypertension- [...] Never smoked tobacco documented in this encounter [facility] Work Phone: Evaluation note* Diagnosis Onset [...] myeloma in remission chronic Unsteady gait resolved [facility] Work Phone: Evaluation note* Diagnosis Onset Date Resolution Status 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 UTI (urinary tract infection) acute CKD (chronic kidney disease) stage 4, GFR 15-29 ml/min acute Depression acute HTN (hypertension) chronic Multiple myeloma in remission chronic Cerebellar stroke, acute acu te CKD (chronic kidney disease) stage 4, GFR 15-29 ml/min acute Diabetes mellitus type II, controlled acute Hyperlipidemia acute Atrial fibrillation chronic HTN (hypertension) chronic 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 Multiple myeloma in remission chronic Unsteady gait resolved CKD (chronic kidney disease) stage 4, GFR 15-29 ml/min acute Hyperkalemia acute Hyperlipidemia acute [id number] acute Metabolic acidemia acute Multiple myeloma acute Secondary hyperparathyroidism of renal origin acute 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 [facility] Work Phone: Evaluation note* Diagnosis Onset Date Resolution Status CKD (chronic kidney disease) stage 4, GFR 15-29 ml/min acute Depression acute HTN (hypertension) chronic Multiple myeloma in remission chronic CKD (chronic kidney disease) stage 4, GFR 15-29 ml/min acute Hyperkalemia acute Hyperlipidemia acute [id number] acute Metabolic acidemia acute Multiple myeloma acute [...] myeloma in remission chronic Unsteady gait resolved [facility] Work Phone: Evaluation note* Diagnosis Onset Date Resolution Status CKD (chronic kidney disease) stage 4, GFR 15-29 ml/min acute Hyperkalemia acute Hyperlipidemia acute [id number] acute Metabolic acidemia acute Multiple myeloma acute [...] myeloma in remission chronic Unsteady gait resolved Diabetic neuropathy acute HTN (hypertension) chronic Chest pain acute CKD (chronic kidney disease) stage 4, GFR 15-29 ml/min acute Diabetes mellitus type II, controlled acute Dyspnea acute Hyperlipidemia acute Hypomagnesemia acute Weakness acute Atrial fibrillation chronic HTN (hypertension) chronic [facility] Work Phone: Evaluation note* Diagnosis Onset Date Resolution Status CKD (chronic kidney disease) stage 4, GFR 15-29 ml/min acute Hyperkalemia acute Hyperlipidemia acute [id number] acute Metabolic acidemia acute Multiple myeloma acute [...] myeloma in remission chronic Unsteady gait resolved Diabetic neuropathy acute HTN (hypertension) chronic Chest pain acute CKD (chronic kidney disease) stage 4, GFR 15-29 ml/min acute Diabetes mellitus type II, controlled acute Diabetic neuropathy acute Dyspnea acute Hyperlipidemia acute Hypomagnesemia acute Impaired mobility and activities of daily living acute Weakness acute Atrial fibrillation chronic HTN (hypertension) chronic Multiple myeloma in remission chronic [facility] Work Phone: History general Narrative - Reported* [...] History SEE ABOVE SURGERY Hospitalization History [facility]-DEHYDRATION/RASH [facility] Other History general Narrative - Reported* Type [...] Hospitalization History [facility]-DEHYDRATION/RASH Hospitalization History COVID 10/2021 [facility] Other Hiswcfn general Narrative - Reported* Type Description Date [...] Hospitalization History SEE ABOVE SURGERY Hospitalization History [facility] [place]-[facility]/RASH Hospitalization History COVID 10/2021 [facility] Other History of Present illness Narrative* Patient [...] recurrence. She did have noninvasive assessment at [facility], which was negative. Couple of years ago. [...] of change in cardiac status or symptoms [facility] [address] DO Work Phone: History of Present [...] recurrence. She did have noninvasive assessment at [facility], which was negative. Couple of years ago. [...] of change in cardiac status or symptoms [facility] 250 DO Work Phone: Hospital course Narrative No data available for this section [facility] progress note No data available for this section [facility] progress note Author Misti Connolly [facility] January 11, 2023 11:19am Note Date/Time January 11, 2023 10:42am [facility] [place] [id number] Hem/Onc Follow Up Note - OP Signed Patient: Hailee Trivedi MR#: [id number] : 1940 Acct:[id number] Age/Sex: 82 / F Type: REG RCR [...] neurologist. Head CT done March 2022 at [facility] without new/acute findings. 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 [...] been trying to transfer her care to [facility] but they are not up [...] x 1 week, sees neurology (followed at [facility]) who have ruled out stroke, CT [...] for coordination of care (as documented) and lsyv-pv-plkb counseling of patient and/or family. [facility] - Medical History Medical History: Medical History [...] 01/19/22 09:00 KB (Rec: 01/19/22 09:01 KB [id number]) Distress Screening Distress screening follow up: Will follow with patient for any needs at next visit. Anxious about making next appointment time. - Lab Results Diagram of Most Recent CBC and CMP 01/04/23 14:45 02/21/23 14:45 Labs - Last 7 Days 01/04/23 14:45: Free Marceline LC, Quant 26.9 H, Free Lambda LC, Quant 12.0, Free Marceline/Lambda Ratio 2.24 H 01/04/23 14:45: PHA Creatinine [...] % (Auto) 54.8, Lymph % (Auto) 34.1, [place] % (Auto) 8.0, Eos % (Auto) 2.3, Baso % (Auto) 0.8, Nucleat RBC Rel Count 0.0, Neut # (Auto) 4.9, Lymph # (Auto) 3.0, [place] # (Auto) 0.7, Eos # (Auto) 0.2, [...] By: <Electronically signed by RAMAKRISHNA Connolly> 01/11/23 0134 [facility] Work Phone: Progress note Author Misti Connolly [facility] January 31, 2024 1:03pm Note Date/Time January 27, 2024 2:5 6pm [facility] [place] [address] Cancer Center Note Signed Patient: Hailee Trivedi MR#: [id number] : 1940 Acct:[id number] Age/Sex: 83 / F Type: DEP AMB Date of Service: 01/27/24 Copies to: Curt [...] well. Within one month of starting irma [id number] she had 95% reduction in K light [...] daratumab. and we will MONITOR WIHTOUT THERAPY. 2023 paraprotein evaluation stable overall. She continues [...] neurologist. Head CT done March 2022 at [facility] without new/acute findings. 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 [...] for multiple myeloma and go over labs [facility] Medical History Medical History (Updated 01/04/24 @ [...] <Electronically signed by RAMAKRISHNA Connolly> 01/31/24 1303 [facility] Work Phone: Reason for referral (narrative)* Consultation (Routine) - Authorized Specialty Diagnoses / Procedures Referred By Contac t Referred To Contact Cardiology Diagnoses Persistent atrial fibrillation with RVR (Multi) Procedures Follow Up In Cardiology Elicia Rhodes MD [address] [place] [address], [address] [address] Elicia Rhodes MD [address] [place] [address], [address] [address] Referral ID Status Reason Start Date Expiration Date V isits Requested Visits Authorized [id number] Authorized 04/17/2024 04/17/2025 1 1 [facility] Work Phone: Summary Purpose Family [...] Date/ Time Advance Directives No October 5:23pm Advance Directive Response Recorded Date/ Time Advance Directives No August 16, 2024 1:21pm Advance Directive Response Recorded Date/ Time Advance Directives No August 16, 2024 12:21pm Chief Complaint HAILEE TRIVEDI is being seen [...] disease) stage 4, GFR 15-29 ml/min Hyperlipidemia [id number] Metabolic acidemia Multiple myeloma 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 Reason for Visit CKD (chronic kidney disease) stage 4, GFR 15-29 ml/min Hyperlipidemia [id number] Metabolic acidemia Multiple myeloma Secondary hyperparathyroidism of [...] myeloma in remission Unsteady gait Chief Complaint sugar concerns N39.0 6 MONTH CHECK UP Multiple Myeloma. 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 Multiple myeloma in remission Unsteady gait Diabetic neuropathy HTN (hypertension) Chest pain CKD (chronic kidney disease) stage 4, GFR 15-29 ml/min Diabetes mellitus type II, controlled Diabetic neuropathy Dyspnea Hyperlipidemia Hypomagnesemia Impaired mobility and activities of daily living Weakness Atrial fibrillation HTN (hypertension) Multiple myeloma in remission Reason for Referral Specialty Diagnoses / Procedures Referred By Contac t Referred To Contact Cardiology Diagnoses Aortic valve regurgitation, nonrheumatic Ascending aorta dilation (CMS/HCC) Pulmonary hypertension (CMS/HCC) Procedures Transthoracic Echo (TTE) Complete CT ECHO TRANSTHORC R-T 2D W/WO M-MODE REC F-UP/LMTD CT DOP ECHOCARD COLOR FLOW VELOCITY MAPPING CT DOP ECHOCARD PULSE WAVE W/SPECTRAL F-UP/LMTD STD Elicia Rhodes MD [address] [place] [address], [address] [address] Referral ID Status Reason Start Date Expiration Date Visits Requested Visits Authorized [id number] Pending Review Perform Procedure 10/03/2024 1 1 Specialty Diagnoses / Procedures Referred By Contac t Referred To Contact Diagnoses Persistent atrial fibrillation with RVR (CMS/HCC) Procedures ECG 12 Lead Elicia Rhodes MD [address] [facility] [address], [place] [place] [phone] Referral ID Status Reason Start Date Expiration Date V isits Requested Visits Authorized [id number] Pending Review 10/04/2023 10/03/2024 1 1 Specialty Diagnoses / Procedures Referred By Contac t Referred To Contact Cardiology Diagnoses Persistent atrial fibrillation with RVR (CMS/HCC) Aortic valve regurgitation, nonrheumatic Ascending aorta dilation (CMS/HCC) Procedures Follow Up In Cardiology Elicia Rhodes MD [address] [facility], [address] [place] [address] Elicia Rhodes MD [address] [facility], [address] [place] [phone] Referral ID Status Reason Start Date Expiration Date V isits Requested Visits Authorized [id number] Authorized 10/04/2023 10/03/2024 1 1 Additional Source Comments INFORMATION SOURCE (unrecogn ized section and content) DATE CREATED AUTHOR 10/19/2019 [facility] DATE CREATED AUTHOR AUTHOR'S ORGANIZ ATION 03/24/2023 [facility] DATE CREATED AUTHOR AUTHOR'S ORGANIZ ATION 03/26/2023 [facility] DATE CREATED AUTHOR AUTHOR'S ORGANIZ ATION 03/26/2023 [employer] DATE CREATED AUTHOR AUTHOR'S ORGANIZ ATION 01/14/2024 [facility] Center DATE CREATED AUTHOR AUTHOR'S ORGANIZ ATION 03/15/2024 [facility] EPIC DATE CREATED AUTHOR AUTHOR'S ORGANIZ ATION 07/12/2024 [facility] DATE CREATED AUTHOR AUTHOR'S ORGANIZ ATION 07/29/2024 [facility] DATE CREATED AUTHOR AUTHOR'S ORGANIZ ATION 09/29/2024 [facility] REASON FOR VISIT (unrecogniz ed section and content) Reason Comments Follow-up 6m with ekg Specialty Diagnoses / Procedures Referred By Contac t Referred To Contact Diagnoses Persistent atrial fibrillation with RVR (CMS/HCC) Procedures ECG 12 Lead Elicia Rhodes MD [address] [place] [address] 2, [place] [address] [place] [id number] Referral ID Status Reason Start Date Expiration Date V isits Requested Visits Authorized [id number] Pending Review 10/04/2023 10/03/2024 1 1 Specialty Diagnoses / Procedures Referred By Contac t Referred To Contact Cardiology Diagnoses Aortic valve regurgitation, nonrheumatic Ascending aorta dilation (CMS/HCC) Pulmonary hypertension (CMS/HCC) Procedures Transthoracic Echo (TTE) Complete CT ECHO TRANSTHORC R-T 2D W/WO M-MODE REC F-UP/LMTD CT DOP ECHOCARD COLOR FLOW VELOCITY MAPPING CT DOP ECHOCARD PULSE WAVE W/SPECTRAL F-UP/LMTD STD Elicia Rhodes MD [address] [facility] 2, [place] [address] [place] [id number] Referral ID Status Reason Start Date Expiration Date Visits Requested Visits Authorized [id number] Pending Review Perform Procedure 3 10/03/2024 1 1 Reason Comments Follow-up 6 months Specialty Diagnoses / Procedures Referred By Contac t Referred To Contact Cardiology Diagnoses Persistent atrial fibrillation with RVR (Multi) Aortic valve regurgitation, nonrheumatic Ascending aorta dilation (CMS-HCC) Procedures Follow Up In Cardiology Elicia Rhodes MD [address] [facility] 2, [address] [address] Elicia Rhodes MD [address] [place] [address] 2, [place] [address] [place] [id number] Referral ID Status Reason Start Date Expiration Date V isits Requested Visits Authorized [id number] Authorized 10/04/2023 10/03/2024 1 1 Care Teams (unrecognized sec tion and content) Team Status: Active Member Role Status Dates Curt Clark MD Primary Care Provider Active Team Status: Active Member Role Status Dates Curt Clark MD Primary Care Provider Active Start: May 23, 2024 Liberty Rossi MD Attending Provider Active Sta rt: May 23, 2024 Team Status: Inactive Member Role Status Dates Curt Clark MD Primary Care Provide r, Attending Provider Active Start: May 31, 2024 End: May 31, 2024 Team Status: Active Member Role Status Dates Curt Clark MD Primary Care Provider Active Start: June 27, 2024 Akin Suarez MD Attending Provider Active Start : June 27, 2024 Team Status: Inactive Member Role Status Dates Curt Clark MD Primary Care Provider Active Start: July 05, 2024 End: July 05, 2024 Akin Suarez MD Attending Provider Active Start : July 05, 2024 End: July 05, 2024 Team Status: Active Member Role Status Dates Curt Clark MD Primary Care Provider Active Start: August 01, 2024 Claire Choi II, DO Active S tart: August 01, 2024 Misti Connolly APRN Attending Provider Active Start: July Team Status: Inactive Member Role Status Dates Curt Clark MD Primary Care Provider Active Start: August 17, 2024 End: August 17, 2024 Claire Choi II, DO Attending Provider Active Start: August 17, 2024 End: August 17, 2024 Team Status: Inactive Member Role Status Dates Curt Clark MD Primary Care Provider Active Nehemias Fernandez II, MD Attending Provider Active Team Status: Active Member Role Status Dates Curt Clark MD Primary Care Provider Active Claire Choi II, DO Attending Provider Active [employer] Operations Supervisor Relationship Specialty Start Date End Date Curt Clark MD PCP - General 12/10/14 Prote[employer] Operations Supervisor Relationship Specialty Start Date End Date Curt Clark MD [address] [place] [address] [place] [address] PCP - General Family Medicine 10/22/23 Prote[employer] Signal Operations Supervisor Relationship Specialty Start Date End Date Curt Clark MD [address] [place] [address] [place] [address] PCP - General Family Medicine 10/22/23 Team [...] April 12, 2024 End: April 12, 2024 Protective Signal Operations Supervisor Relationship Specialty Start Date End Date Curt Clark MD PCP - General Family Medicine 10/22/23 Team Status: Active Member Role Status Dates Curt Clark MD Primary Care Provider Active Start: April 25, 2024 Claire Choi II, DO Attending Provider Active Start: April 25, 2024 Team Status: Active Member Role Status Dates Curt Clark MD Primary Care Provider Active Start: June 06, 2024 Claire Choi II, DO Attending Provider Active Start: June 06, 2024 Team Status: Active Member Role Status Dates Curt Clark MD Primary Care Provide r, Attending Provider Active Start: August 20, 2024 Team Status: Inactive Member Role Status Dates Curt Clark MD Primary Care Provide r, Attending Provider Active Start: August 20, 2024 End: August 20, 2024 Protective Signal Operations Supervisor Relationship Specialty Start Date End Date Curt Clark MD [address] [place] [id number] PCP - [facility] Family Medicine 06/29/23 Team Status: Active Member Role Status Dates Curt Clark MD Primary Care Provider Active Start: September 14, 2024 Temo Alfaro PA-C Attending Provider Active S tart: September 14, 2024 Team Status: Active Member Role Status Dates Curt Clark MD Primary Care Provider Active Start: September 18, 2024 Jesse Valdez DO Emergency Provider Active Start: September 18, 2024 Pool Buck MD Admit Provide r, Attending Provider Active Start: September 18, 2024 Team Status: Inactive Member Role Status Dates Curt Clark MD Primary Care Provider Active Start: September 18, 2024 End: September 19, 2024 Jesse Valdez DO Emergency Provider Active Start: September 18, 2024 End: September 19, 2024 Pool Buck MD Admit Provider Active Start: September 18, 2024 End: September 19, 2024 Cristiano Diaz MD Other Provider Active Start: September 18, 2024 End: September 19, 2024 Sherron Li MD Other Provider Active Start: No vember 2023 End: September 19, 2024 Pj Montes MD Other Provider Active Start: N ovember 4 End: September 19, 2024 Kristan Pretty , DIRECTOR [employer] Other Provider Active St art: September 18, 2024 End: September 19, 2024 [place] L Belcik Jr, DO Other Provider Active S tart: September 18, 2024 End: September 19, 2024 Trent Patterson MD Attending Provider Active St art: September 18, 2024 End: September 19, 2024 Team Status: Active Member Role Status Dates Curt Clark MD Primary Care Provider Active Start: September 18, 2024 Jsese Valdez DO Emergency Provider Active Start: September 18, 2024 Pool Buck MD Admit Provider Active Start: September 18, 2024 Trent Patterson MD Other Provider Active Start: September 18, 2024 Cristiano Diaz MD [facility]ending [facility] Other Provider Active Start: September 18, 2024 Sherron Li MD Other Provider Active Start: No 2023 Pj Montes MD Other Provider Active Start: N 2023 Kristan Pretty , DIRECTOR [employer] Other Provider Active St art: September 18, 2024 [place] L Belcik Jr, DO Other Provider Active S tart: September 18, 2024 Team Status: Active Member Role Status Dates Curt Clark MD Primary Care Provide r, Attending Provider Active Start: September 19, 2024 Goals (unrecognized section and content) Goals [...] BE BASED ON THE PRIMARY CLINICAL RECORDS. [employer] provides no warranty or guarantee of the accuracy or completeness of information in this document.
[2024-09-29 17:51] LABS: Anion Gap 15.4; BUN Creatinine Ratio 11.7; Calcium 8.9 mg/dL (8.5-10.1); Carbon Dioxide 25.2 mmol/L (21.0-32.0); Chloride 108 mmol/L (98-107); Estimated GFR (African America 20 (>=60 mL/min/1.73m^2); Estimated GFR (Non-African Ame 17 (>=60 mL/min/1.73m^2); Glucose 183 mg/dL (74-106); Potassium 5.6 mmol/L (3.5-5.1); Sodium 143 mmol/L (136-145)
== END 2024-09-29 16:57 | disposition home or self-care (01) ==
LOC: LAB 16:56
PROVIDERS: PCP Family Medicine; Visit Provider Family Medicine
DX: E87.20 Acidosis, unspecified (principal)
CPT/HCPCS: 36415; 80048

== ENCOUNTER 2024-10-10 13:59 | Inpatient (IN) | payer MEDICARE, OTHER, SELFPAY ==
[2024-10-10] VITALS (27 sets, daily range): BP systolic 92–141; BP diastolic 61–85; PULSE 79–124; TEMP 36.7–37.3; O2SAT 93–99; BMI 32.1; BMI 30.7
--- NOTE | 2024-10-10 14:03 | ECG_ITS ---
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
--- NOTE | 2024-10-10 14:04 | CT_ITS ---
The [address] [address] Patient Name: MARTHA GOMEZ MRN: [id number] date: 1940 Sex: F Assigned Patient Location: ED.MAIN Current Patient Location: Accession/Order Number: [id number] Exam Date: 10/10/2024 15:20 Report Date: 10/10/2024 16:02 At the request of: KATIE TENORIO Procedure: CT head/brain wo con EXAMINATION: CT head/brain wo con HISTORY: fall COMPARISON: No relevant comparison available. TECHNIQUE: Axial CT images were obtained without IV contrast. Dose reduction techniques were achieved by using automated exposure control and/or adjustment of mA and/or kV according to patient size and/or use of iterative reconstruction technique. FINDINGS: BRAIN: Remote infarction within right cerebellum. No edema, hemorrhage, mass, acute infarction, or inappropriate atrophy. CSF SPACES: No hydrocephalus, subarachnoid hemorrhage, or mass. Appropriate for age. SKULL: No fracture, mass, or other significant visible lesion. SINUSES: No significant mucosal thickening or fluid on the limited views. ORBITS: No appreciable abnormality on the limited views. OTHER: Negative CT/CT head/brain wo con IMPRESSION: 1. No appreciable acute abnormality. 2. Stable remote infarction within right cerebellum. 3. No fracture of the calvarium or scalp hematoma. Electronically authenticated by: DIANN IBANEZ Date: 10/10/2024 16:02
--- NOTE | 2024-10-10 14:04 | CT_ITS ---
The [address] [address] Patient Name: MARTHA GOMEZ MRN: [id number] date: 1940 Sex: F Assigned Patient Location: ER Current Patient Location: ER Accession/Order Number: [id number] Exam Date: 10/10/2024 15:20 Report Date: 10/10/2024 16:09 At the request of: KATIE TENORIO Procedure: CT cervical spine wo con EXAMINATION: CT cervical spine wo con HISTORY: fall COMPARISON: No relevant comparison available. TECHNIQUE: Axial, Coronal, and Sagittal images were created without IV contrast. Dose reduction techniques were achieved by using automated exposure control and/or adjustment of mA and/or kV according to patient size and/or use of iterative reconstruction technique. FINDINGS: VERTEBRAL BODIES: Slight reversal normal lordotic curvature involving C4-C7. Mild grade 1 anterolisthesis of C4 on 5. No fracture or bone lesion. FACET JOINTS: Multilevel mild degenerative facet arthropathy. No disruption or abnormal widening. DISCS: Moderate-marked narrowing C5-6 and C6-7 with prominent posterior disc osteophyte complex causing moderate to marked central canal narrowing and moderate foramen narrowing on the right at C5-6 and on the left at C6-7. CENTRAL CANAL: No evidence of hemorrhage. PARASPINAL AREA: No visible mass. CT/CT cervical spine wo con IMPRESSION: 1. No appreciable acute abnormality. No prior studies for comparison. 2. Marked degenerative changes resulting in moderate to marked central canal and moderate foramen narrowing. Electronically authenticated by: DIANN IBANEZ Date: 10/10/2024 16:09
--- NOTE | 2024-10-10 14:04 | XR_ITS ---
The [address] [address] Patient Name: MARTHA GOMEZ MRN: [id number] date: 1940 Sex: F Assigned Patient Location: ED.MAIN Current Patient Location: ER Accession/Order Number: [id number] Exam Date: 10/10/2024 14:48 Report Date: 10/10/2024 15:10 At the request of: KATIE TENORIO Procedure: XR chest 1V EXAMINATION: XR chest 1V HISTORY: weak COMPARISON: XR chest 09/14/2024 FINDINGS: LUNGS: Mild haziness within lung bases, left greater than right. VASCULATURE: No increased pulmonary vasculature. PLEURA: No pneumothorax, effusion, or pleural thickening. CARDIAC: No cardiomegaly or cardiac silhouette abnormality. MEDIASTINUM: No visible mass or adenopathy. BONES: No fracture or visible bone lesion. OTHER: Right Port-A-Cath with distal tip projecting over the right atrium. XR/XR chest 1V IMPRESSION: 1. Trace amount of bibasilar atelectasis versus infiltrates. Otherwise stable chest. Electronically authenticated by: DIANN IBANEZ Date: 10/10/2024 15:10
--- NOTE | 2024-10-10 14:09 | ED.GENADUL1 ---
HPI HPI - General Adult General Chief complaint: Head Injury Stated complaint: HEAD INJURY, WEAKNESS Time Seen by Provider: 10/10/24 14:02 Source: patient Mode of arrival: ambulance History of Present Illness HPI narrative: 84-year-old female presents to the emergency department by squad because she is weak and she fell. She states she was in her home and she was coming back from the bathroom. She is on Xarelto for atrial fibrillation and began having black stools today. She states that she also vomited some blood. She fell and does not know if she hit her head or not. Paramedics assessed her and brought her in. She was not hypotensive for them. Related Data Home Medications ?Medication ?Instructions ?Recorded ?Confirmed acyclovir 400 mg tablet 400 mg PO Q12H 04/19/23 10/10/24 aspirin 81 mg capsule 81 mg PO DAILY 04/19/23 10/10/24 atorvastatin 40 mg tablet 40 mg PO .once a day 04/19/23 10/10/24 carvedilol 12.5 mg tablet 12.5 mg PO Q12H 04/19/23 10/10/24 rivaroxaban 15 mg tablet (Xarelto) 15 mg PO Q24H 04/19/23 10/10/24 B12 1,000 mcg PO .every other day 06/19/23 10/10/24 cholecalciferol (vitamin D3) 25 25 mcg PO BEDTIME 06/19/23 10/10/24 mcg (1,000 unit) capsule insulin NPH isoph U-100 human 100 10 unit subcut BID 06/19/23 10/10/24 unit/mL (3 mL) subcutaneous pen (Humulin N NPH U-100 Insulin KwikPen) omega 8-odg-omx-fish oil 300 1 cap PO BID 06/19/23 10/10/24 mg-1,000 mg capsule (Fish Oil) sodium bicarbonate 650 mg tablet 650 mg PO BID 06/19/23 10/10/24 amlodipine 5 mg tablet 5 mg PO DAILY 10/10/24 10/10/24 magnesium chloride 71.5 mg 71.5 mg PO DAILY 10/10/24 10/10/24 (magnesium chloride) tablet,delayed release (Slow-Mag) Previous Rx's ?Medication ?Instructions ?Recorded meclizine 12.5 mg tablet 25 mg (2 x 12.5 mg) PO QID PRN 06/20/23 Vertigo #30 tabs Allergies Allergy/AdvReac Type Severity Reaction Status Date / Time lenalidomide (From Revlimid) Allergy Rash Verified 09/14/24 14:11 pregabalin (From Lyrica) Allergy Rash Verified 09/14/24 14:11 oxybutynin AdvReac Mild Rash Verified 09/14/24 14:11 Opioid HPI Opioid Management Most Recent Opioid Data: Last Pain Scale 0 06/20/23 04:27 06/20/23 Review of Systems ROS Narrative A ten point review of systems is negative except as noted above. [facility] Medical History (Updated 10/10/24 @ 16:41 by Gary Frausto MD) Cerebrovascular disease ?I67.9 - Cerebrovascular disease, unspecified (ICD-10) Paroxysmal atrial fibrillation ?I48.0 - Paroxysmal atrial fibrillation (ICD-10) CKD (chronic kidney disease) stage 4, GFR 15-29 ml/min ?N18.4 - Chronic kidney disease, stage 4 (severe) (ICD-10) Type 2 diabetes mellitus with hyperglycemia ?E11.65 - Type 2 diabetes mellitus with hyperglycemia (ICD-10) Hypertension ?I10 - Essential (primary) hypertension (ICD-10) Cataract ?H26.9 - Unspecified cataract (ICD-10) Multiple myeloma ?C90.00 - Multiple myeloma not having achieved remission (ICD-10) Stroke ?I63.9 - Cerebral infarction, unspecified (ICD-10) Osteoarthritis of left knee ?M17.12 - Unilateral primary osteoarthritis, left knee (ICD-10) Hypertension ?I10 - Essential (primary) hypertension (ICD-10) Surgical History (Updated 04/19/23 @ 11:32 by Letty Overton) Hx of cholecystectomy ?Z90.49 - Acquired absence of other specified parts of digestive tract (ICD-10) History of hysterectomy ?Z90.710 - Acquired absence of both cervix and uterus (ICD-10) Family History (Updated 04/19/23 @ 11:35 by Letty Overton) Mother Family history of CHF (congestive heart failure) Family history of diabetes mellitus Family history of stroke Sister Family history of CHF (congestive heart failure) Family history of diabetes mellitus Family history of hypertension Grandmother Family history of cancer Family history of diabetes mellitus Brother No problems noted. Father No problems noted. Social History (Updated 04/19/23 @ 11:38 by Letty Overton) Within the past year, how often did you have a drink containing alcohol: never Score interpretation: A score less than 3 is consistent with normal alcohol consumption. 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 General: The patient appears well and in no apparent distress. Patient is resting comfortably on cart. Skin: Warm, dry, pallor noted. There is no rash noted. Head: Normocephalic, atraumatic Eye: Normal conjunctiva, no drainage Ears, Nose, Mouth, and Throat: oral mucosa is moist. Nares patent. Cardiovascular: Irregularly irregular Respiratory: Patient is in no distress, no accessory muscle use, lungs are clear to auscultation, no wheezing, rales or rhonchi Back: non-tender GI: Soft and nontender. She has black stool. Musculoskeletal: The patient has no evidence of calf tenderness, no pitting edema, symmetrical pulses noted bilaterally Neurological: A&O, normal speech Psychiatric: Cooperative Constitutional Vital Signs, click to edit/add: Last Vital Signs Temp 99.2 F 10/10/24 14:12 Pulse 105 H 10/10/24 15:49 Resp 18 10/10/24 15:45 BP 121/68 10/10/24 15:45 Pulse Ox 97 10/10/24 15:45 O2 Del Method Room Air 10/10/24 14:18 Course Vital Signs Vital signs: Vital Signs Pulse Rate 109 H 10/10/24 14:00 Respiratory Rate 18 10/10/24 14:00 Blood Pressure 132/79 10/10/24 14:00 Pulse Oximetry 99 10/10/24 14:00 Oxygen Delivery Method Room Air 10/10/24 14:00 Temperature 99.2 F 10/10/24 14:12 Pulse Rate 105 H 10/10/24 15:49 Respiratory Rate 18 10/10/24 15:45 Blood Pressure 121/68 10/10/24 15:45 Pulse Oximetry 97 10/10/24 15:45 Oxygen Delivery Method Room Air 10/10/24 14:18 Medical Decision Making MDM Narrative Medical decision making narrative: CT brain, CT C-spine, and CT abdomen are negative. Hemoglobin is down just over 2 g in the past 3 weeks. She is being admitted and was given IV Protonix. She is hemodynamically stable currently. Treatment diagnosis and disposition were discussed with the patient and her family. Differential Diagnosis Differential Diagnosis: Upper GI bleed, lower GI bleed, diverticulitis Lab Data Lab results reviewed: Yes I reviewed the patient's lab results Labs: Lab Results 10/10/24 10/10/24 Range/Units 14:09 14:18 WBC 9.0 (4.0-11.0) 10^3/uL RBC 3.13 L (4.20-5.40) 10^6/uL Hgb 10.1 L (12.0-16.0) g/dL Hct 31.9 L (36.0-48.0) % MCV 101.9 H (81.0-99.0) fL MCH 32.3 (26.7-34.0) pg MCHC 31.7 (29.9-35.2) g/dL RDW 13.1 (11.0-15.0) % Plt Count 251 (150-450) 10^3/uL MPV 11.8 (9.5-13.5) fL Neut % (Auto) 59.4 (43.0-75.0) % Lymph % (Auto) 33.6 (20.5-60.0) % [place] % (Auto) 6.4 (1.7-12.0) % Eos % (Auto) 0.2 L (0.9-7.0) % Baso % (Auto) 0.2 (0.2-2.0) % Neut # (Auto) 5.3 (1.4-6.5) 10^3/uL Lymph # (Auto) 3.0 (1.2-3.8) 10^3/uL [place] # (Auto) 0.6 (0.3-0.8) 10^3/uL Eos # (Auto) 0.0 (0.0-0.7) 10^3/uL Baso # (Auto) 0.0 (0.0-0.1) 10^3/uL Abs Immat Gran (auto) 0.02 (0.00-0.03) 10^3/uL Imm/Tot Granulo (auto) 0.2 (0.0-0.5) % Sodium 141 (136-145) mmol/L Potassium 5.3 H (3.5-5.1) mmol/L Chloride 110 H (98-107) mmol/L Carbon Dioxide 19.4 L (21.0-32.0) mmol/L Anion Gap 16.9 BUN 67.0 H (7.0-18.0) mg/dL Creatinine 2.78 H (0.55-1.02) mg/dL Est GFR ( Amer) 20 L (>=60 mL/min/1.73m^2) Est GFR (Non-Af Amer) 16 L (>=60 mL/min/1.73m^2) BUN/Creatinine Ratio 24.1 Glucose 191 H (74-106) mg/dL Calcium 8.8 (8.5-10.1) mg/dL Total Bilirubin 0.5 (0.2-1.0) mg/dL Direct Bilirubin 0.1 (0.0-0.2) mg/dL AST 10 L (15-37) U/L ALT 15 (14-59) U/L Alkaline Phosphatase 87 (46-116) U/L Troponin I High Sens 4.7 (4.0-51.3) pg/mL Total Protein 5.8 L (6.4-8.2) g/dL Albumin 2.4 L (3.4-5.0) g/dL Globulin 3.4 g/dL Albumin/Globulin Ratio 0.7 Stool Occult Blood Positive A Imaging Data CT scan - abdomen: Radiologist's impression: ITS Impressions Cervical Spine CT 10/10/24 14:04 IMPRESSION: 1. No appreciable acute abnormality. No prior studies for comparison. 2. Marked degenerative changes resulting in moderate to marked central canal and moderate foramen narrowing. Electronically authenticated by: DIANN IBANEZ Date: 10/10/2024 16:09 Chest X-Ray 10/10/24 14:04 IMPRESSION: 1. Trace amount of bibasilar atelectasis versus infiltrates. Otherwise stable chest. Electronically authenticated by: DIANN IBANEZ Date: 10/10/2024 15:[address] 10/10/24 14:04 IMPRESSION: 1. No appreciable acute abnormality. 2. Stable remote infarction within right cerebellum. 3. No fracture of the calvarium or scalp hematoma. Electronically authenticated by: DIANN IBANEZ Date: 10/10/2024 16:02 Abdomen/Pelvis CT 10/10/24 14:16 IMPRESSION: 1. Mild diverticulosis of the distal colon without acute inflammatory changes. No acute or specific findings to account for patient's gastrointestinal bleeding. Electronically authenticated by: DIANN IBANEZ Date: 10/10/2024 15:57 ECG Data Attestation: I personally reviewed and interpreted this ECG as follows: (EKG on my interpretation shows A-fib with a rate of 115.) Critical Care Time Critical Care Time Critical Care Time: Yes Total Critical Care Time: 35 Attestation: Due to the high probability of sudden and clinically significant deterioration in the patient's condition he/she required the highest level of my preparedness to intervene urgently I provided critical care time including documentation time, medication orders and management, reevaluation, vital sign assessment, ordering and reviewing of lab tests, ordering and reviewing of x-ray studies, and admission orders. Aggregate critical care time is 35 minutes including only time during which I was engaged in work directly related to his/her care and did not include time spent treating other patients simultaneously. Discharge Plan Discharge Chief Complaint: Head Injury Clinical Impression: GI bleeding Patient Disposition: Admitted As Inpatient Time of Disposition Decision: 16:41 Condition: Fair
--- NOTE | 2024-10-10 14:16 | CT_ITS ---
[address] [address] Patient Name: MARTHA GOMEZ MRN: [id number] date: 1940 Sex: F Assigned Patient Location: ER Current Patient Location: ER Accession/Order Number: [id number] Exam Date: 10/10/2024 15:20 Report Date: 10/10/2024 15:57 At the request of: KATIE TENORIO Procedure: CT abdomen pelvis wo con EXAMINATION: CT abdomen pelvis wo con HISTORY: GI bleed COMPARISON: CT abdomen pelvis 09/14/2024 TECHNIQUE: Axial, Coronal, and Sagittal images were obtained without and/or with IV contrast as indicated by examination type. Dose reduction techniques were achieved by using automated exposure control and/or adjustment of mA and/or kV according to patient size and/or use of iterative reconstruction technique. FINDINGS: LUNG BASES: No visible pulmonary or pleural disease. LIVER: No enlargement, atrophy, suspicious density, or significant focal lesion. BILIARY: Cholecystectomy. PANCREAS: No lesion, fluid collection, or abnormal duct dilatation. SPLEEN: No enlargement or focal lesion. ADRENALS: No mass or enlargement. KIDNEYS: Moderate atrophy and 4.5 cm right renal cysts, grossly stable. No mass, obstruction, or calcification. Marked atrophy of left kidney. BOWEL/MESENTERY: Several small diverticula involving the distal descending and sigmoid colon without acute inflammatory changes. No visible mass, obstruction, or bowel wall thickening. AORTA/VASCULAR: No aneurysm or dissection. RETROPERITONEUM: No mass or adenopathy. LYMPH NODES: No adenopathy. URINARY BLADDER: No visible focal wall thickening, lesion, or calculus. PELVIC ORGANS: Hysterectomy. ABDOMINAL WALL: No mass or hernia. BONES: Moderate degenerative disc disease L2-3. Mild degenerative changes of the hip joints, left greater than right. OTHER: Negative. CT/CT abdomen pelvis wo con IMPRESSION: 1. Mild diverticulosis of the distal colon without acute inflammatory changes. No acute or specific findings to account for patient's gastrointestinal bleeding. Electronically authenticated by: DIANN IBANEZ Date: 10/10/2024 15:57
--- NOTE | 2024-10-10 14:16 | PC.NURSE ---
no hematomas and skin intact to head and face. Pt reports vomiting blood and this is where the dried blood from mouth came from.
[2024-10-10] MEDS: ONDANSETRON PF 4 MG/2 ML VIAL IV (14:20)
[2024-10-10] MEDS: PANTOPRAZOLE SODIUM 40 MG VIAL IV ×2 (14:21→21:31)
[2024-10-10 14:26] LABS: Basophils Percent Auto 0.2 % (0.2-2.0); Eosinophils Percent Auto 0.2 % (0.9-7.0); Hematocrit 31.9 % (36.0-48.0); Hemoglobin 10.1 g/dL (12.0-16.0); Immature Granulocytes Abs Auto 0.02 10^3/uL (0.00-0.03); Immature Granulocytes Pct Auto 0.2 % (0.0-0.5); Lymphocytes Percent Auto 33.6 % (20.5-60.0); Mean Corpuscular HGB Conc 31.7 g/dL (29.9-35.2); Mean Corpuscular Hemoglobin 32.3 pg (26.7-34.0); Mean Corpuscular Volume 101.9 fL (81.0-99.0); Mean Platelet Volume 11.8 fL (9.5-13.5); Monocytes Absolute Auto 0.6 10^3/uL (0.3-0.8); Monocytes Percent Auto 6.4 % (1.7-12.0); Neutrophils Absolute Auto 5.3 10^3/uL (1.4-6.5); Neutrophils Percent Auto 59.4 % (43.0-75.0); Platelet Count 251 10^3/uL (150-450); Red Blood Count 3.13 10^6/uL (4.20-5.40); Red Cell Distribution Width 13.1 % (11.0-15.0)
[2024-10-10 14:29] LABS: Internal Control Within Normal Limits; Occult Blood Positive
[2024-10-10 14:57] LABS: Anion Gap 16.9; BUN Creatinine Ratio 24.1; Calcium 8.8 mg/dL (8.5-10.1); Carbon Dioxide 19.4 mmol/L (21.0-32.0); Chloride 110 mmol/L (98-107); Estimated GFR (African America 20 (>=60 mL/min/1.73m^2); Estimated GFR (Non-African Ame 16 (>=60 mL/min/1.73m^2); Glucose 191 mg/dL (74-106); Potassium 5.3 mmol/L (3.5-5.1); Sodium 141 mmol/L (136-145)
[2024-10-10 15:52] LABS: Alanine Aminotransferase 15 U/L (14-59); Albumin Globulin Ratio 0.7; Albumin Level 2.4 g/dL (3.4-5.0); Alkaline Phosphatase 87 U/L (46-116); Aspartate Amino Transferase 10 U/L (15-37); Bilirubin Direct 0.1 mg/dL (0.0-0.2); Bilirubin Total 0.5 mg/dL (0.2-1.0); Globulin 3.4 g/dL; Total Protein 5.8 g/dL (6.4-8.2); Troponin I High Sensitivity 4.7 pg/mL (4.0-51.3)
--- OUTSIDE RECORDS SUMMARY | 2024-10-10 17:15 | XMS_ITS | CCD ---
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 Name Role Phone Curt Clark Unavailable Unavailable Unavailable CURT CLARK Primary Care Physician Lopez, Akin Unavailable Quita Ayon Unavailable MD Curt Clark Primary Care Provider DO Claire Choi II Attending Provider Curt Clark Unavailable MD Curt Clark Primary Care Provider [phone] DO Claire Choi II Attending Provider DR [...] DR RUBI Attending Unavailab le TRABOULSSI, DR RUIB Admitting Unavailab le CLARK, DR CURT Patel [...] Unav MD Curt Rock Primary Care Provider [phone] DO Claire Choi II Attending Provider [phone] MD Nehemias Fernandez II Attending Provider [phone] Nehemias Fernandez II Unavailable Curt Clark MD [...] Curt Clark MD Primary Care Provider [phone] MD Curt Clark Primary Care Provider DO Claire Choi II Attending Provider [phone] DO Claire Choi II Attending Provider [phone] ELICIA RHODES Attending Unavailable CURT CLARK Primary Care Unavailable ELICIA RHODES Attending Unavailable ELICIA RHODES Referring Unavailable CURT CLARK Primary Care Unavailable ELICIA RHODES Referring Unavailable CURT CLARK Primary Care Unavailable MD Curt Clark Primary Care Provider RAMAKRISHNA Connolly Attending Provider Curt Clark MD Primary Care Provider MD Curt Clrak Primary Care Provider RAMAKRISHNA Connolly Attending Provider DO Jesse Valdez Emergency Provider [phone] MD Pool Buck Admit Provider MD Pool Buck Attending Provider MD Cristiano Diaz Other Provider MD Sherron Li Other Provider MD Pj Montes Other Provider RAMAKRISHNA Pretty Other Provider [phone] DO Isaias Morgan Jr Other Provider MD Trent Patterson Attending Provider Curt Clark [...] lenalidomide Drug Allergy 04-12-20 24 Rash, itching [facility] oxybutynin (1 source) oxybutynin Drug Allergy 04-12-20 24 Rash, rash, hives [facility] pregabalin (1 source) pregabalin Drug Allergy 04-12-20 [address] [facility] (20 sources) oxybutynin; Translations: [oxybutynin] Drug Allergy 07-13-20 22 Hives, Rash [facility] 250 DO Work Phone: (20 sources) lenalidomide; Translations: [lenalidomide] Drug Allergy 08-24-20 16 Unknown, Rash, itching, Rash, itching [facility] (20 sources) pregabalin; Translations: [pregabalin] Drug Allergy 07-13-20 22 Unknown, double vision [facility] (11 sources) pregabalin; Translations: [Lyrica] Drug Allergy DOUBLE VISION [facility] (10 sources) REVILID Propensity to adverse reactions ITCHY Sybari Other (1 source) lenalidomide Drug Allergy 08-24-20 [facility] (1 source) oxybutynin Drug Allergy 12-27-19 [facility] (1 source) Allergies Reconciled Propensity to adverse reactions Unknown Sybari Other (1 source) patient allergy list reviewed by nurse or physicia Propensity to adverse reactions 11-24-19 Comment:Done Sybari Other (1 source) Acetaminophen / HYDROcodone Drug Allergy 03-05-20 [facility] (1 source) Pregabalin Propensity to adverse reactions 03-05-20 [facility] (1 source) lenalidomide Drug Allergy 09-24-[address] [facility] (1 source) oxybutynin Drug Allergy 09-24-[address] [facility] (1 source) pregabalin Drug Allergy 09-24-[address] [facility] Medications Current Medications Medication Drug Class(es) [...] Start: 02-11-2022 take 1 capsule by mo [facility] three times daily as needed Benzonatate 100 [...] mouth once daily. Active daratumumab (2 sources) [id number] Cytolytic Antibody Start: 12-17-2019 daratumumab mg, IV, q6wk, Refills(s) 0 Start Date: 12/17/19 Status: Ordered docosahexaenoic acid 120 mg / eicosapentaenoic acid 180 mg oral capsule (12 sources) take 1 capsule by mouth twice daily fish oil concentrate (Kellogg-3) 120-180 mg capsule Take 1 capsule (1 [...] every 12 hrs for 10 days Active Kellogg 5-Glj-Ynr-Fish Oil (Fish Oil) 1,000 mg (120 mg-180 mg) capsule (5 sources) Start: 07-05-2024 Kellogg 3-Dha-Ep a-Fish Oil (Fish Oil) 1,000 mg (120 mg-180 mg) capsule Active 1 CAP PO Every 48 hours July 04, 2024 11:00pm Start: 07-05-2024 Kellogg 3-Dha-Ep a-Fish Oil (Fish Oil) 1,000 mg (120 mg-180 mg) capsule Active 1 CAP PO Every 48 hours July 05, 2024 12:00am Kellogg-3 Fatty Acids (FISH OIL PO) (1 source) Kellogg-3 Fatty Acids (FISH OIL PO) Take by [...] Status: Ordered take 1 capsule by mo [facility] twice daily take 1 capsule by mo [facility] twice daily Fish Oil 1000 MG 1 [...] PROCRIT INJECT ION - 1000 units Jun, 85249 U raNITIdine 150 mg oral tablet (15 [...] aftercare (20 sources) Drug therapy finding; Translations: [intermission coordinator (current) use of systemic steroids] Episodic Other aftercare (20 sources) Long-term current use of insulin; Translations: [FPC (current) use of insulin] 01-03-2024 Episodic Other aftercare (1 source) FPC (current) use of aspirin; Translations: [RESIDENTIAL CURRENT USE OF ASPIRIN] Onset: 3 Episodic Other aftercare (1 source) Other fci (current) drug therapy; Translations: [OTH RESIDENTIAL CURRENT DRUG THERAPY] Onset: 3 Episodic Other aftercare (1 source) FPC (current) use of insulin; Translations: [RESIDENTIAL CURRENT USE OF INSULIN] Onset: 3 Episodic Other aftercare (1 source) intermission coordinator (current) use of anticoagulants; Translations: [RESIDENTIAL CURRNT USE ANTICOAGULANTS] Onset: 3 Episodic Other aftercare (10 sources) Long-term current use of steroid; Translations: [FPC (current) use of systemic steroids] 01-03-2024 Episodic [...] Creatinine Clr Calc Pharmacy 19.25 Normal [facility] Comment on above: Result Comment: PERF ORMED BY: [place] [address] PATHOLOGIST FAIRGROUND OPERATOR LUIS DEE M.D. Performed By: #### A DDONUAPLUS #### [facility] [address] [place] [address] GFR/1.73 sq M.predicted MDRD (S/P/Bld) [Vol rate/Area] 18.292 mL/min/{1.73_m2} Normal [facility] Comment on above: Performed By: #### A DDONUAPLUS #### [address] Calcium [Mass/volume] in Ser um or PlasmaOrdered By: Trent Patterson on 09-19-2024 Calcium [Mass/Vol] 7.6 mg/dL Low 8.6-10.3 [facility] Comment on above: Performed By: #### A DDONUAPLUS #### [facility] [address] [place] [address] Capillary blood glucose leonor urement by glucometer (mass/volume)Ordered By: Trent Patterson on 09-19-2024 Glucose [Mass/Vol] 137 mg/dL Normal [facility] Comment on above: Random Glucose Refer ence Range is dependent on time and content of last meal. Glucose of more than 200 mg/dL in a nonstressed, ambulatory subject supports the diagnosis of Diabetes Mellitus. Result Comment: [place] om Glucose Reference Range is dependent on time and content of last meal. Glucose of more than 200 mg/dL in a nonstressed, ambulatory subject supports the diagnosis of Diabetes Mellitus. PERFORMED BY: [place] [address] PATHOLOGIST FAIRGROUND OPERATOR LUIS DEE M.D. Performed By: #### M G, CBC, BMP #### [facility] [address] [place] [address] Carbon dioxide, total [Moles /volume] in Serum or PlasmaOrdered By: Trent Patterson on 09-19-2024 CO2 [Moles/Vol] 20.5 mmol/L Low 21.0-31.0 [place] Comment on above: Performed By: #### A DDONUAPLUS #### [facility] [address] [place] [address] [place] Chloride [Moles/volume] in S amanda or PlasmaOrdered By: Trent Patterson on 09-19-2024 Chloride [Moles/Vol] 115 mmol/L High 98-107 [facility] Comment on above: Performed By: #### A DDONUAPLUS #### [place] [address] [place] Creatinine [Mass/volume] in Serum or PlasmaOrdered By: Trent Patterson on 09-19-2024 Creatinine [Mass/Vol] 2.55 mg/dL High 0.60-1.20 [facility] Comment on above: Performed By: #### A DDONUAPLUS #### [facility] [address] [id number] [facility] echo transthoracicon [facility] echo transthoracic [facility] Main [place] [address] [place] [address] Echocardiogram Signed Patient: Hailee Trivedi MR#: [id number] 306 : 1940 Acct:[id number] Age/Sex: 84 / F ADM Date: 09/18/24 Loc: Room: [address] [place] [address] Type: ADM INOo Attending Dr: Trent Patterson MD Ordering Provider: Trent Patterson MD Date of Service: 09/18/2404/06/1148 [facility] echo transthoracic: elevated BNP Copies to: MD Camilla Del Toro MD, [facility] BSA: 2.0 m2 BP: 119/73 mmHg HR: [...] nisha: LV V1 max PG: MR max nisha: 178.0 cm/sec 348.0 cm/sec 3.6 mmHg 458.3 [...] P.8 mmHg RAP systole: 3.0 mmHg ___ Electronically signed by: CAMILLA ESTRADA MD, [facility] on 09/19/2024 04:18 PM Transcribed By: SCV Performed At: 09/19/24 1128 Signed By: Camilla Estrada MD, [facility] 09/19/24 1618 Normal [facility] Glucose Poct Glucometerson 1 11-19-2023 Glucose [Mass/Vol] 177 mg/dL Normal [facility] Comment on above: Result Comment: [place] om Glucose Reference Range is dependent on time and content of last meal. Glucose of more than 200 mg/dL in a nonstressed, ambulatory subject supports the diagnosis of Diabetes Mellitus. PERFORMED BY: [place] [phone] PATHOLOGIST FAIRGROUND OPERATOR LUIS DEE M.D. Performed By: #### A DDONUAPLUS #### [facility] [address] [place] [address] Glucose [Mass/Vol] 108 mg/dL Normal [facility] Comment on above: Result Comment: [place] om Glucose Reference Range is dependent on time and content of last meal. Glucose of more than 200 mg/dL in a nonstressed, ambulatory subject supports the diagnosis of Diabetes Mellitus. PERFORMED BY: [place] [phone] PATHOLOGIST FAIRGROUND OPERATOR LUIS DEE M.D. Performed By: #### M G, CBC, BMP #### [facility] [address] [place] [address] [place] Glucose [Mass/volume] in Ser um or PlasmaOrdered By: Trent Patterson on 09-19-2024 Glucose [Mass/Vol] 103 mg/dL High 70-100 [facility] Comment on above: ADA recommended refe rence rangeRandom Glucose Reference Range is dependent on time and content of last meal. Glucose of more than 200 mg/dL in a nonstressed, ambulatory subject supports the diagnosis of Diabetes Mellitus. Result Comment: [place] om Glucose Reference Range is dependent on time and content of last meal. Glucose of more than 200 mg/dL in a nonstressed, ambulatory subject supports the diagnosis of Diabetes Mellitus. ADA recommended reference range Performed By: #### A DDONUAPLUS #### [address] No Panel InformationOrdered By: Trent Patterson on 09-19-2024 Estimated GFR (CKD-EPI) 18.292 mL/Min [facility] Creatinine Clearance (Chem 19.[address] [facility] Potassium [Moles/volume] in Serum or PlasmaOrdered By: Trent Patterson on 09-19-2024 Potassium [Moles/Vol] 3.6 mmol/L Normal 3.5-5.1 [facility] Comment on above: Performed By: #### A DDONUAPLUS #### [address] Serum or plasma anion gap de terminationOrdered By: Trent Patterson on 09-19-2024 Anion gap [Moles/Vol] 9.1 mmol/L Normal 6.0-15.0 [facility] Comment on above: Performed By: #### A DDONUAPLUS #### [address] Sodium [Moles/volume] in Ser um or PlasmaOrdered By: Trent Patterson on 09-19-2024 Sodium [Moles/Vol] 141 mmol/L Normal 136-145 [facility] Comment on above: Performed By: #### A DDONUAPLUS #### [address] Urea nitrogen [Mass/volume] in Serum or PlasmaOrdered By: Trent Patterson on 09-19-2024 Urea nitrogen [Mass/Vol] 37 mg/dL High 7-[address] [facility] Comment on above: Performed By: #### A DDONUAPLUS #### [address] Automated basophil %Ordered By: Roseline Overton on 09-18-2024 Basophils/100 WBC (Bld) 0.8 % Normal . [facility] Comment on above: Performed By: #### M G, CBC, BMP #### [address] Automated basophil countOrde red By: Roseline Overton on 09-18-2024 Basophils (Bld) [#/Vol] 0.1 10*3/uL Normal 0.0-0.[address] [facility] Comment on above: Result Comment: PERF ORMED BY: [place] [address] PATHOLOGIST FAIRGROUND OPERATOR LUIS DEE M.D. Performed By: #### M G, CBC, BMP #### [address] Automated blood monocyte cou ntOrdered By: Roseline Overton on 09-18-2024 Monocytes (Bld) [#/Vol] 0.9 10*3/uL High 0.0-0.[address] [facility] Comment on above: Performed By: #### M G, CBC, BMP #### [address] Automated eosinophil %Ordere d By: Roseline Overton on 09-18-2024 Eosinophils/100 WBC (Bld) 2.3 % Normal . [facility] Comment on above: Performed By: #### M G, CBC, BMP #### [address] Automated eosinophil countOr dered By: Roseline Overton on 09-18-2024 Eosinophils (Bld) [#/Vol] 0.2 10*3/uL Normal 0.0-0.[address] [facility] Comment on above: Performed By: #### M G, CBC, BMP #### [address] Automated monocyte %Ordered By: Roseline Overton on 09-18-2024 Monocytes/100 WBC (Bld) 8.7 % Normal . [facility] Comment on above: Performed By: #### M G, CBC, BMP #### [address] Automated neutrophil %Ordere d By: Roseline Overton on 09-18-2024 Neutrophils/100 WBC (Bld) 81.6 % Normal . [facility] Comment on above: Performed By: #### M G, CBC, BMP #### [facility] [address] Basic Metabolic Panelon 11-0 -2023 Anion gap [Moles/Vol] 11.5 mmol/L Normal 6.0-15.0 [facility] Comment on above: Performed By: #### M G, CBC, BMP #### [facility] [address] [place] [address] [place] Calcium [Mass/Vol] 7.5 mg/dL Low 8.6-10.3 [facility] Comment on above: Performed By: #### M G, CBC, BMP #### [facility] [address] [place] [address] [place] Chloride [Moles/Vol] 112 mmol/L High 98-107 [facility] Comment on above: Performed By: #### M G, CBC, BMP #### [facility] [address] CO2 [Moles/Vol] 17.4 mmol/L Low 21.0-31.0 [facility] Comment on above: Performed By: #### M G, CBC, BMP #### [facility] [address] [place] [address] [place] Creatinine [Mass/Vol] 2.58 mg/dL High 0.60-1.20 [facility] Comment on above: Performed By: #### M G, CBC, BMP #### [facility] [address] [place] [address] [place] Creatinine Clr Calc Pharmacy 18.85 Normal [facility] Comment on above: Performed By: #### M G, CBC, BMP #### [facility] [address] [place] [address] [place] GFR/1.73 sq M.predicted MDRD (S/P/Bld) [Vol rate/Area] 18.037 mL/min/{1.73_m2} Normal [facility] Comment on above: Performed By: #### M G, CBC, BMP #### [facility] [address] [place] [address] [place] Glucose [Mass/Vol] 112 mg/dL High 70-100 [facility] Comment on above: Result Comment: [place] Glucose Reference Range is dependent on time and content of last meal. Glucose of more than 200 mg/dL in a nonstressed, ambulatory subject supports the diagnosis of Diabetes Mellitus. ADA recommended reference range Performed By: #### M G, CBC, BMP #### [facility] [address] Potassium [Moles/Vol] 3.9 mmol/L Normal 3.5-5.1 [facility] Comment on above: Performed By: #### M G, CBC, BMP #### [facility] [address] [place] [address] Sodium [Moles/Vol] 137 mmol/L Normal 136-145 [facility] Comment on above: Performed By: #### M G, CBC, BMP #### [facility] [address] [place] [address] Urea nitrogen [Mass/Vol] 40 mg/dL High 7-25 [facility] Comment on above: Performed By: #### M G, CBC, BMP #### [address] Complete Blood Count Auto Di ffon 09-18-2024 Mean Corpuscular HGB Conc 33.8 g/dL Normal 32.0-35.0 [facility] Comment on above: Performed By: #### M G, CBC, BMP #### [place] [address] [place] NRBC% 0.0 /100{WBC} Normal 0-0.5 [facility] Comment on above: Performed By: #### M G, CBC, BMP #### [facility] [address] [place] [address] [place] ECG 12 lead ECGon 09-18-2024 ECG 12 lead ECG [facility] Main [place] [address] [place] [address] Electrocardiograph Report Signed Patient: Hailee Trivedi MR#: [id number] 306 : 1940 Acct:[id number] Age/Sex: 84 / F ADM Date: 09/18/24 Loc: Room: [address] [place] [address] Type: ADM INOo Attending Dr: Trent Patterson [...] change was found Confirmed by NATALIE VELAZQUEZ [facility] (137) on 09/19/2024 2:53:36 PM Referred By: Electronically Signed By: CAMILLA ESTRADA MD FAC Transcribed By: MUS Signed By Camilla Estrada MD, FACC 09/19/24 1453 Normal [facility] Erythrocyte distribution wid th [Ratio] by Automated countOrdered By: Roseline Overton on 09-18-2024 Erythrocyte distribution width (RBC) [Ratio] 14.1 % Normal 11.9-15.[address] [facility] Comment on above: Performed By: #### M G, CBC, BMP #### [facility] [address] [place] [address] Erythrocytes [#/volume] in B lood by Automated countOrdered By: Roseline Overton on 09-18-2024 RBC (Bld) [#/Vol] 3.72 10*6/uL Normal 3.60-5.00 [place] Comment on above: Performed By: #### M G, CBC, BMP #### [facility] [address] [place] [address] Glucose Poct Glucometerson 1 11-18-2023 Glucose [Mass/Vol] 177 mg/dL Normal [facility] Comment on above: Result Comment: [place] Glucose Reference Range is dependent on time and content of last meal. Glucose of more than 200 mg/dL in a nonstressed, ambulatory subject supports the diagnosis of Diabetes Mellitus. PERFORMED BY: [place] [address] PATHOLOGIST FAIRGROUND OPERATOR LUIS DEE M.D. Performed By: #### M G, CBC, BMP #### [address] Commemt1 Glu2: Cleaned Meter Normal [facility] Comment on above: Result Comment: PERF ORMED BY: [place] [address] PATHOLOGIST FAIRGROUND OPERATOR LUIS DEE M.D. Performed By: #### A DDONUAPLUS #### [place] [address] [place] Glucose [Mass/Vol] 158 mg/dL Normal [facility] Comment on above: Result Comment: [place] om Glucose Reference Range is dependent on time and content of last meal. Glucose of more than 200 mg/dL in a nonstressed, ambulatory subject supports the diagnosis of Diabetes Mellitus. Performed By: #### A DDONUAPLUS #### [address] Commemt1 Glu2: Cleaned Meter Normal [facility] Comment on above: Result Comment: PERF ORMED BY: [place] [address] PATHOLOGIST FAIRGROUND OPERATOR LUIS DEE M.D. Performed By: #### M G, CBC, BMP #### [place] [address] [place] Glucose [Mass/Vol] 145 mg/dL Normal [facility] Comment on above: Result Comment: [place] om Glucose Reference Range is dependent on time and content of last meal. Glucose of more than 200 mg/dL in a nonstressed, ambulatory subject supports the diagnosis of Diabetes Mellitus. Performed By: #### M G, CBC, BMP #### [address] Commemt1 Glu2: Cleaned Meter Normal [facility] Comment on above: Result Comment: PERF ORMED BY: [place] [address] PATHOLOGIST FAIRGROUND OPERATOR LUIS DEE M.D. Performed By: #### M G, CBC, BMP #### [address] Glucose [Mass/Vol] 177 mg/dL Normal [facility] Comment on above: Result Comment: [place] om Glucose Reference Range is dependent on time and content of last meal. Glucose of more than 200 mg/dL in a nonstressed, ambulatory subject supports the diagnosis of Diabetes Mellitus. Performed By: #### M G, CBC, BMP #### [address] Glucose [Mass/Vol] 111 mg/dL Normal [facility] Comment on above: Result Comment: [place] om Glucose Reference Range is dependent on time and content of last meal. Glucose of more than 200 mg/dL in a nonstressed, ambulatory subject supports the diagnosis of Diabetes Mellitus. PERFORMED BY: [place] [address] PATHOLOGIST FAIRGROUND OPERATOR LUIS DEE M.D. Performed By: #### M G, CBC, BMP #### [address] Hematocrit [Volume Fraction] of Blood by Automated countOrdered By: Roseline Overton on 09-18-2024 Hematocrit (Bld) [Volume fraction] 35.5 % Normal 34.0-46.[address] [facility] Comment on above: Performed By: #### M G, CBC, BMP #### [address] Hemoglobin [Mass/volume] in BloodOrdered By: Roseline Overton on 09-18-2024 Hemoglobin (Bld) [Mass/Vol] 12.0 g/dL Normal 11.8-15.[address] [facility] Comment on above: Performed By: #### M G, CBC, BMP #### [address] Leukocytes [#/volume] correc dominick for nucleated erythrocytes in Blood by Automated counOrdered By: Roseline Overton on 09-18-2024 WBC corrected for nucl RBC Auto (Bld) [#/Vol] 9.8 10*3/uL 3.8-11.[address] [facility] Leukocytes [#/volume] in Blo od by Automated countOrdered By: Roseline Overton on 09-18-2024 WBC (Bld) [#/Vol] 9.8 10*3/uL Normal 3.8-11.6 [facility] Comment on above: Performed By: #### M G, CBC, BMP #### [address] Lymphocytes [#/volume] in Bl ood by Automated countOrdered By: Roseline Overton on 09-18-2024 Lymphocytes (Bld) [#/Vol] 0.7 10*3/uL Low 1.00-4.[address] [facility] Comment on above: Performed By: #### M G, CBC, BMP #### [address] Lymphocytes/100 leukocytes i n Blood by Automated countOrdered By: Roseline Overton on 09-18-2024 Lymphocytes/100 WBC (Bld) 6.6 % Normal . [facility] Comment on above: Performed By: #### M G, CBC, BMP #### [address] MCH [Entitic mass] by Automa dominick countOrdered By: Roseline Overton on 09-18-2024 MCH (RBC) [Entitic mass] 32.3 pg Normal 24.7-34.[address] [facility] Comment on above: Performed By: #### M G, CBC, BMP #### [address] MCHC Auto (RBC) [Mass/Vol]Or dered By: Roseline Overton on 09-18-2024 MCHC (RBC) [Mass/Vol] 33.8 g/dL 32.0-35.0 [facility] MCV [Entitic volume] by Auto mated countOrdered By: Roseline Overton on 09-18-2024 MCV (RBC) [Entitic vol] 95.4 fL Normal 80-100 [facility] Comment on above: Performed By: #### M G, CBC, BMP #### [facility] [address] [place] [address] Magnesium [Mass/volume] in S amanda or PlasmaOrdered By: Roseline Overton on 09-18-2024 Magnesium [Mass/Vol] 1.7 mg/dL Low 1.9-2.7 [facility] Comment on above: Result Comment: PERF ORMED BY: [place] [address] PATHOLOGIST FAIRGROUND OPERATOR LUIS DEE M.D. Performed By: #### M G, CBC, BMP #### [facility] [address] [place] [address] Neutrophils [#/volume] in Bl ood by Automated countOrdered By: Roseline Overton on 09-18-2024 Neutrophils (Bld) [#/Vol] 8.0 10*3/uL High 1.8-7.[address] [facility] Comment on above: Performed By: #### M Dalia, CBC, BMP #### [facility] [address] [place] [address] No Panel InformationOrdered By: Trent Patterson on 09-18-2024 Bedside Glucose Comment Glu2: cleaned meter [facility] Nucleated erythrocytes [Pres ence] in Blood by Automated countOrdered By: Roseline Overton on 09-18-2024 Nucleated RBC Auto Ql (Bld) 0.0 /100{WBC} 0-0.[address] [facility] Platelet mean volume [Entiti c volume] in Blood by Automated countOrdered By: Roseline Overton on 09-18-2024 Platelet mean volume (Bld) [Entitic vol] 10.2 fL Normal 6.3-10.[address] [facility] Comment on above: Performed By: #### M G, CBC, BMP #### [facility] [address] [place] [address] Platelets [#/volume] in Bloo d by Automated countOrdered By: Roseline Overton on 09-18-2024 Platelets (Bld) [#/Vol] 137 10*3/uL Low 150-[address] [facility] Comment on above: Performed By: #### M G, CBC, BMP #### [address] Troponin I High Sensitivityo n 09-18-2024 Troponin I High Sensitivity 21.2 pg/mL High 0.0-15.0 [facility] Comment on above: Result Comment: PERF ORMED BY: [place] [address] PATHOLOGIST FAIRGROUND OPERATOR LUIS DEE M.D. Performed By: #### A DDONUAPLUS #### [address] Troponin I High Sensitivity 9.1 pg/mL Normal 0.0-15.0 [facility] Comment on above: Result Comment: PERF ORMED BY: [place] [address] PATHOLOGIST FAIRGROUND OPERATOR LUIS DEE M.D. Performed By: #### M G, CBC, BMP #### [address] Troponin I.cardiac [Mass/vol ume] in Serum or Plasma by Detection limit <= 0.01 ng/Ordered By: Roseline Overton on 09-18-2024 Troponin I.cardiac DL <= 0.01 ng/mL [Mass/Vol] 21.2 pg/mL High 0.0-15.[address] [facility] Activated partial thrombopla stin time (aPTT) in platelet poor plasma by coagulation aOrdered By: Jesse Valdez on 09-17-2024 aPTT Coag (PPP) [Time] 30.4 s 25.1-36.5 [facility] Comment on above: A hematocrit value g reater than 55% may lead to inaccurate results in coagulation testing. Patients having hematocrit values >55% require a special collection tube for coagulation studies. Please contact the laboratory at [phone] for redraw instructions. Alanine aminotransferase [En zymatic activity/volume] in Serum or PlasmaOrdered By: Jesse Valdez on 09-17-2024 ALT [Catalytic activity/Vol] 15 U/L Normal 7-[address] [facility] Comment on above: Performed By: #### M G, CBC, BMP #### [address] Albumin [Mass/volume] in Ser um or Plasma by Bromocresol green (BCG) dye binding methoOrdered By: Jesse Valdez on 09-17-2024 Albumin BCG dye [Mass/Vol] 2.7 g/dL Low 3.5-5.[address] [facility] Alkaline phosphatase [Enzyma tic activity/volume] in Serum or PlasmaOrdered By: Jesse Valdez on 09-17-2024 ALP [Catalytic activity/Vol] 64 U/L Normal 34-[address] [facility] Comment on above: Performed By: #### M G, CBC, BMP #### [address] Aspartate aminotransferase [ Enzymatic activity/volume] in Serum or PlasmaOrdered By: Jesse Valdez on 09-17-2024 AST [Catalytic activity/Vol] 14 U/L Normal 13-[address] [facility] Comment on above: Performed By: #### M G, CBC, BMP #### [address] Automated basophil %Ordered By: Jesse Valdez on 09-17-2024 Basophils/100 WBC (Bld) 0.3 % Normal . [facility] Comment on above: Performed By: #### H S TROP, PTT, CK, BNP, PT, MG, TSH3, CMP, SCAN CBC #### [address] Automated basophil countOrde red By: Jesse Valdez on 09-17-2024 Basophils (Bld) [#/Vol] 0.0 10*3/uL Normal 0.0-0.[address] [facility] Comment on above: Performed By: #### H S TROP, PTT, CK, BNP, PT, MG, TSH3, CMP, SCAN CBC #### [address] Automated blood monocyte cou ntOrdered By: Jesse Valdez on 09-17-2024 Monocytes (Bld) [#/Vol] 0.6 10*3/uL Normal 0.0-0.[address] [facility] Comment on above: Performed By: #### H S TROP, PTT, CK, BNP, PT, MG, TSH3, CMP, SCAN CBC #### [address] Automated eosinophil %Ordere d By: Jesse Valdez on 09-17-2024 Eosinophils/100 WBC (Bld) 2.1 % Normal . [facility] Comment on above: Performed By: #### H S TROP, PTT, CK, BNP, PT, MG, TSH3, CMP, SCAN CBC #### [address] Automated eosinophil countOr dered By: Jesse Valdez on 09-17-2024 Eosinophils (Bld) [#/Vol] 0.3 10*3/uL Normal 0.0-0.[address] [facility] Comment on above: Performed By: #### H S TROP, PTT, CK, BNP, PT, MG, TSH3, CMP, SCAN CBC #### [address] Automated monocyte %Ordered By: Jesse Valdez on 09-17-2024 Monocytes/100 WBC (Bld) 4.9 % Normal . [facility] Comment on above: Performed By: #### H S TROP, PTT, CK, BNP, PT, MG, TSH3, CMP, SCAN CBC #### [address] Automated neutrophil %Ordere d By: Jesse Valdez on 09-17-2024 Neutrophils/100 WBC (Bld) 87.9 % Normal . [facility] Comment on above: Performed By: #### H S TROP, PTT, CK, BNP, PT, MG, TSH3, CMP, SCAN CBC #### [address] BNP ser/plasOrdered By: Lul Valdez on 09-17-2024 Natriuretic peptide B (Bld) [Mass/Vol] 660.0 pg/mL High 5-[address] [facility] Comment on above: Result Comment: PERF ORMED BY: [place] [address] PATHOLOGIST FAIRGROUND OPERATOR LUIS DEE M.D. Performed By: #### M G, CBC, BMP #### [address] Bacteria [Presence] in Urine by AutomatedOrdered By: Jesse Valdez on 09-17-2024 Bacteria Auto Ql (U) None seen [HPF] None Seen [facility] Bilirubin Test strip Ql (U)O rdered By: Jesse Valdez on 09-17-2024 Bilirubin Ql (U) Negative Negative [place] Bilirubin.total [Mass/volume ] in Serum or PlasmaOrdered By: Jesse Valdez on 09-17-2024 Bilirubin [Mass/Vol] 0.4 mg/dL Normal 0.3-1.0 [facility] Comment on above: Performed By: #### M G, CBC, BMP #### [address] head/brain wo conon 09-17 CT head/brain wo con [facility] [place] [address] CT Scan Report Signed Patient: Hailee Trivedi MR#: [id number] 306 : 1940 Acct:[id number] Age/Sex: 84 / F ADM Date: 09/17/24 Loc: ER Room: Type: [facility] ER Attending Dr: Copies to: Jesse Valdez [...] Armando Huynh M.D.09/17/2024 10:40 PM Dictation Location: [place] [address] Transcribed By: AISHA 09/17/242239 Dictated By: Armando Huynh II, MD 09/17/242232 Signed By: 09/17/242239 Normal [facility] Calcium [Mass/volume] in Ser um or PlasmaOrdered By: Jesse Valdez on 09-17-2024 Calcium [Mass/Vol] 7.7 mg/dL Low 8.6-10.3 [facility] Comment on above: Performed By: #### M G, CBC, BMP #### [address] Capillary blood glucose leonor urement by glucometer (mass/volume)Ordered By: Jesse Valdez on 09-17-2024 Glucose [Mass/Vol] 138 mg/dL Normal [facility] Comment on above: Random Glucose Refer ence Range is dependent on time and content of last meal. Glucose of more than 200 mg/dL in a nonstressed, ambulatory subject supports the diagnosis of Diabetes Mellitus. Result Comment: [place] Glucose Reference Range is dependent on time and content of last meal. Glucose of more than 200 mg/dL in a nonstressed, ambulatory subject supports the diagnosis of Diabetes Mellitus. Performed By: #### A DDONUAPLUS #### [place] [id number] [facility] Carbon dioxide, total [Moles /volume] in Serum or PlasmaOrdered By: Jesse Valdez on 09-17-2024 CO2 [Moles/Vol] 17.5 mmol/L Low 21.0-31.0 [place] Comment on above: Performed By: #### M Dalia CBC, BMP #### [address] Chloride [Moles/volume] in S amanda or PlasmaOrdered By: Jesse Valdez on 09-17-2024 Chloride [Moles/Vol] 112 mmol/L High 98-107 [facility] Comment on above: Performed By: #### M Dalia CBC, BMP #### [address] Color of Urine by AutoOrdere d By: Jesse Valdez on 09-17-2024 Color (U) Yellow Normal Yellow [facility] Comment on above: Order Comment: Name Collection Type:: Clean-Voided Midstream Performed By: #### A DDONUAPLUS #### [address] Comprehensive Metabolic Pane natalia 09-17-2024 Albumin [Mass/Vol] 2.7 g/dL Low 3.5-5.7 [facility] Comment on above: Performed By: #### M Dalia CBC, BMP #### [place] [address] [place] Creatinine Clr Calc Pharmacy 18.35 Normal [facility] Comment on above: Performed By: #### M Dalia CBC, BMP #### [place] [address] [place] GFR/1.73 sq M.predicted MDRD (S/P/Bld) [Vol rate/Area] 17.388 mL/min/{1.73_m2} Normal [facility] Comment on above: Performed By: #### M Dalia CBC, BMP #### [address] Creatine kinase [Enzymatic a ctivity/volume] in Serum or PlasmaOrdered By: Jesse Valdez on 09-17-2024 CK [Catalytic activity/Vol] 25 U/L Low 30-[address] [facility] Comment on above: Performed By: #### M G, CBC, BMP #### [facility] [address] [place] [address] Creatinine [Mass/volume] in Serum or PlasmaOrdered By: Jesse Valdez on 09-17-2024 Creatinine [Mass/Vol] 2.66 mg/dL High 0.60-1.20 [facility] Comment on above: Performed By: #### M G, CBC, BMP #### [address] Dipstick and Microscopicon 1 11-17-2023 Bacteria,Urine None Seen Normal None Seen [facility] Comment on above: Order Comment: Name Collection Type:: Clean-Voided Midstream Performed By: #### A DDONUAPLUS #### [address] Bilirubin,Urine Negative Normal Negative [facility] Comment on above: Order Comment: Name Collection Type:: Clean-Voided Midstream Performed By: #### A DDONUAPLUS #### [address] Glucose Ql (U) Normal Normal Normal [facility] Comment on above: Order Comment: Name Collection Type:: Clean-Voided Midstream Performed By: #### A DDONUAPLUS #### [address] Hyaline Casts,Urine None Normal 0-8 [facility] Comment on above: Order Comment: Name Collection Type:: Clean-Voided Midstream Performed By: #### A DDONUAPLUS #### [place] [address] [place] Mucus,Urine Rare Normal [facility] Comment on above: Order Comment: Name Collection Type:: Clean-Voided Midstream Result Comment: PERF ORMED BY: [place] [address] PATHOLOGIST FAIRGROUND OPERATOR LUIS DEE M.D. Performed By: #### A DDONUAPLUS #### [address] [address] [place] Nitrite,Urine Negative Normal Negative [facility] Comment on above: Order Comment: Name Collection Type:: Clean-Voided Midstream Performed By: #### A DDONUAPLUS #### [address] Occult Blood,Urine Negative Normal Negative [facility] Comment on above: Order Comment: Name Collection Type:: Clean-Voided Midstream Result Comment: PERF ORMED BY: [place] [address] PATHOLOGIST FAIRGROUND OPERATOR LUIS DEE M.D. Performed By: #### A DDONUAPLUS #### [address] RBC,Urine 1-2 Normal 0-4 [facility] Comment on above: Order Comment: Name Collection Type:: Clean-Voided Midstream Performed By: #### A DDONUAPLUS #### [address] Specificy [place],Urine 1.023 Normal 1.00 1-1.03 0 [facility] Comment on above: Order Comment: Name Collection Type:: Clean-Voided Midstream Performed By: #### A DDONUAPLUS #### [address] Squamous Epithelial Cell,Urine 1-2 Normal 0-2 [facility] Comment on above: Order Comment: Name Collection Type:: Clean-Voided Midstream Performed By: #### A DDONUAPLUS #### [address] Urobilinogen,Urine Normal Normal Normal [facility] Comment on above: Order Comment: Name Collection Type:: Clean-Voided Midstream Performed By: #### A DDONUAPLUS #### [address] WBC CLUMP, Urine Occasional High None Seen [facility] Comment on above: Order Comment: Name Collection Type:: Clean-Voided Midstream Performed By: #### A DDONUAPLUS #### [address] [place] [address] [facility] WBC,Urine 3-4 Normal 0-4 [facility] Comment on above: Order Comment: Name Collection Type:: Clean-Voided Midstream Performed By: #### A DDONUAPLUS #### [facility] [address] [place], [place] [id number] [facility] ECG 12 lead ECGon 09-17-2024 ECG 12 lead ECG [facility] [place] [address] Electrocardiograph Report Signed Patient: Hailee Trivedi MR#: [id number] 306 : 1940 Acct:[id number] Age/Sex: 84 / F ADM Date: 09/18/24 Loc: Room: [address] [place] [address] Type: ADM INOo Attending Dr: Trent Patterson [...] ventricular response Confirmed by Jesse VALDEZ DO ([id number]) on 09/18/2024 11:57:16 PM Referred By: Electronically Signed By: Jesse VALDEZ DO Transcribed By: MUS Signed By Jesse Valdez DO 1 11/18/23 2357 Normal [facility] ECG 12 lead ECG [facility] Main [place] [id number] Electrocardiograph Report Signed Patient: Hailee Trivedi MR#: [id number] 306 : 1940 Acct:[id number] Age/Sex: 84 / F ADM Date: 09/17/24 Loc: ER Room: Type: [facility] ER Attending Dr: Ordering Provider: Jesse Valdez [...] Atrial fibrillation Confirmed [place] Jesse VALDEZ [place] ([id number]) on 09/18/2024 12:49:30 AM Referred By: Electronically Signed By: Jesse VALDEZ DO Transcribed By: MUS Signed By Jesse Valdez DO 1 11/18/23 0049 Normal [facility] Epithelial cells.squamous [# /area] in Urine sediment by Automated countOrdered By: Jesse Valdez on 09-17-2024 Epithelial cells.squamous Auto (Urine sed) [#/Area] 1-2 [HPF] 0-[address] [facility] Erythrocyte distribution wid th [Ratio] by Automated countOrdered By: Jesse Valdez on 09-17-2024 Erythrocyte distribution width (RBC) [Ratio] 14.3 % Normal 11.9-15.[address] [facility] Comment on above: Performed By: #### H S TROP, PTT, CK, BNP, PT, MG, TSH3, CMP, SCAN CBC #### [facility] [address] [place] [address] Erythrocytes [#/area] in Uri ne sediment by Automated countOrdered By: Jesse Valdez on 09-17-2024 RBC Auto (Urine sed) [#/Area] 1-2 [HPF] 0-[address] [facility] Erythrocytes [#/volume] in B lood by Automated countOrdered By: Jesse Valdez on 09-17-2024 RBC (Bld) [#/Vol] 3.77 10*6/uL Normal 3.60-5.00 [place] Comment on above: Performed By: #### H S TROP, PTT, CK, BNP, PT, MG, TSH3, CMP, SCAN CBC #### [facility] [address] [place] [address] Glucose Poct Glucometerson 1 11-17-2023 Commemt1 Glu2: Cleaned Meter Normal [facility] Comment on above: Result Comment: PERF ORMED BY: [place] [address] PATHOLOGIST FAIRGROUND OPERATOR LUIS DEE M.D. Performed By: #### A DDONUAPLUS #### [address] Glucose [Mass/volume] in Ser um or PlasmaOrdered By: Jesse Valdez on 09-17-2024 Glucose [Mass/Vol] 141 mg/dL High 70-100 [facility] Comment on above: ADA recommended refe rence rangeRandom Glucose Reference Range is dependent on time and content of last meal. Glucose of more than 200 mg/dL in a nonstressed, ambulatory subject supports the diagnosis of Diabetes Mellitus. Result Comment: [place] om Glucose Reference Range is dependent on time and content of last meal. Glucose of more than 200 mg/dL in a nonstressed, ambulatory subject supports the diagnosis of Diabetes Mellitus. ADA recommended reference range Performed By: #### M G, CBC, BMP #### [address] Glucose [Mass/volume] in Uri ne by Test stripOrdered By: Jesse Valdez on 09-17-2024 Glucose Test strip (U) [Mass/Vol] Normal mg/dL Normal [facility] Hematocrit [Volume Fraction] of Blood by Automated countOrdered By: Jesse Valdez on 09-17-2024 Hematocrit (Bld) [Volume fraction] 36.0 % Normal 34.0-46.[address] [facility] Comment on above: Performed By: #### H S TROP, PTT, CK, BNP, PT, MG, TSH3, CMP, SCAN CBC #### [facility] [address] [place] [id number] [facility] Hemoglobin Test strip Ql (U) Ordered By: Jesse Valdez on 09-17-2024 Hemoglobin Ql (U) Negative Negative [facility] Hemoglobin [Mass/volume] in BloodOrdered By: Jesse Valdez on 09-17-2024 Hemoglobin (Bld) [Mass/Vol] 12.0 g/dL Normal 11.8-15.[address] [facility] Comment on above: Performed By: #### H S TROP, PTT, CK, BNP, PT, MG, TSH3, CMP, SCAN CBC #### [facility] [address] [place] [id number] [place] Hyaline casts [#/area] in Ur ine sediment by Automated countOrdered By: Jesse Valdez on 09-17-2024 Hyaline casts Auto (Urine sed) [#/Area] None [LPF] 0-[address] [facility] INR in Platelet poor plasma by Coagulation assayOrdered By: Jesse Valdez on 09-17-2024 INR Coag (PPP) [Relative time] 1.5 {INR} Normal [facility] Comment on above: INR Therapeutic Rang e [...] By: #### M G, CBC, BMP #### [facility] [address] [place] [id number] [place] Ketones [Presence] in Urine by Test stripOrdered By: Jesse Valdez on 09-17-2024 Ketones Ql (U) Negative Normal Negative [facility] Comment on above: Order Comment: Name Collection Type:: Clean-Voided Midstream Performed By: #### A DDONUAPLUS #### [facility] [address] [place] [id number] [place] Lactate [Moles/volume] in Se rum or PlasmaOrdered By: Jesse Valdez on 09-17-2024 Lactate [Moles/Vol] 0.9 mmol/L Normal 0.5-2.2 [place] Comment on above: Result Comment: PERF ORMED BY: [place] [address] PATHOLOGIST FAIRGROUND OPERATOR LUIS DEE M.D. Performed By: #### A DDONUAPLUS #### [facility] [address] Leukocyte clumps [Presence] in Urine by AutomatedOrdered By: Jesse Valdez on 09-17-2024 Leukocyte clumps Auto Ql (U) Occasional [LPF] High None Seen [facility] Leukocyte esterase [Presence ] in Urine by Test stripOrdered By: Jesse Valdez on 09-17-2024 Leukocyte esterase Test strip Ql (U) Negative Normal Negative [facility] Comment on above: Order Comment: Name Collection Type:: Clean-Voided Midstream Performed By: #### A DDONUAPLUS #### [facility] [address] [place] [address] Leukocytes [#/area] in Urine sediment by Automated countOrdered By: Jesse Valdez on 09-17-2024 WBC Auto (Urine sed) [#/Area] 3-4 [HPF] 0-[address] [facility] Leukocytes [#/volume] correc dominick for nucleated erythrocytes in Blood by Automated counOrdered By: Jesse Valdez on 09-17-2024 WBC corrected for nucl RBC Auto (Bld) [#/Vol] 12.0 10*3/uL High 3.8-11.[address] [facility] Leukocytes [#/volume] in Blo od by Automated countOrdered By: Jesse Valdez on 09-17-2024 WBC (Bld) [#/Vol] 12.0 10*3/uL High 3.8-11.6 [place] Comment on above: Performed By: #### H S TROP, PTT, CK, BNP, PT, MG, TSH3, CMP, SCAN CBC #### [facility] [address] [place] [address] [place] Lymphocytes [#/volume] in Bl ood by Automated countOrdered By: Jesse Valdez on 09-17-2024 Lymphocytes (Bld) [#/Vol] 0.6 10*3/uL Low 1.00-4.[address] [facility] Comment on above: Performed By: #### H S TROP, PTT, CK, BNP, PT, MG, TSH3, CMP, SCAN CBC #### [facility] [address] Lymphocytes/100 leukocytes i n Blood by Automated countOrdered By: Jesse Valdez on 09-17-2024 Lymphocytes/100 WBC (Bld) 4.8 % Normal . [facility] Comment on above: Performed By: #### H S TROP, PTT, CK, BNP, PT, MG, TSH3, CMP, SCAN CBC #### [address] MCH [Entitic mass] by Automa dominick countOrdered By: Jesse Valdez on 09-17-2024 MCH (RBC) [Entitic mass] 31.8 pg Normal 24.7-34.[address] [facility] Comment on above: Performed By: #### H S TROP, PTT, CK, BNP, PT, MG, TSH3, CMP, SCAN CBC #### [address] MCHC Auto (RBC) [Mass/Vol]Or dered By: Jesse Valdez on 09-17-2024 MCHC (RBC) [Mass/Vol] 33.3 g/dL 32.0-35.0 [facility] MCV [Entitic volume] by Auto mated countOrdered By: Jesse aVldez on 09-17-2024 MCV (RBC) [Entitic vol] 95.5 fL Normal 80-100 [facility] Comment on above: Performed By: #### H S TROP, PTT, CK, BNP, PT, MG, TSH3, CMP, SCAN CBC #### [address] Magnesium [Mass/volume] in S amanda or PlasmaOrdered By: Jesse Valdez on 09-17-2024 Magnesium [Mass/Vol] 1.6 mg/dL Low 1.9-2.7 [facility] Comment on above: Performed By: #### M G, CBC, BMP #### [address] Monocyte distribution width [Entitic volume] in Blood by AutomatedOrdered By: Jesse Valdez on 09-17-2024 Monocyte distribution width Auto (Bld) [Entitic vol] 29.77 % High 0.00-20.[address] [facility] Comment on above: For adults in ED, MD W > 20.0 may be associated with a higher risk of sepsis during the first 12 hrs of hospital admission Mucus [Presence] in Urine by AutomatedOrdered By: Jesse Valdez on 09-17-2024 Mucus Auto Ql (U) Rare [LPF] [facility] Neutrophils [#/volume] in Bl ood by Automated countOrdered By: Jesse Valdez on 09-17-2024 Neutrophils (Bld) [#/Vol] 10.6 10*3/uL High 1.8-7.[address] [facility] Comment on above: Performed By: #### H S TROP, PTT, CK, BNP, PT, MG, TSH3, CMP, SCAN CBC #### [facility] [address] Nitrite Test strip Ql (U)Ord ered By: Jesse Valdez on 09-17-2024 Nitrite Ql (U) Negative Negative [facility] No Panel InformationOrdered By: Jesse Valdez on 09-17-2024 Blood Gas Critical Value See comment [facility] Comment on above: Critical Value rizvi d on: 09/17/2024 at 22:50 Blood Gas Sample Site Venous Fir [facility] FiO2 21 % [facility] Venous Blood Base Excess -8.6 mmol/L Low -3.0-3.[address] [facility] Venous Blood Oxygen Saturation 76.2 % High 73.0-76.[address] [facility] Venous Blood Partial Pressure CO2 30.5 mm[Hg] Low 38.0-50.[address] [facility] Venous Blood pH 7.34 7.32-7.[address] [facility] Estimated GFR (CKD-EPI) 17.388 mL/Min [facility] Creatinine Clearance (Chem 18.[address] [facility] Bedside Glucose Comment Glu2: cleaned meter [facility] Nucleated erythrocytes [Pres ence] in Blood by Automated countOrdered By: Jesse Valdez on 09-17-2024 Nucleated RBC Auto Ql (Bld) 0.0 /100{WBC} 0-0.[address] [facility] Partial Thromboplastin Timeo n 09-17-2024 aPTT Coag (Bld) [Time] 30.4 s Normal 25.1-36.5 [facility] Comment on above: Result Comment: A he matocrit value greater than 55% may lead to inaccurate results in coagulation testing. Patients having hematocrit values >55% require a special collection tube for coagulation studies. Please contact the laboratory at [phone] for redraw instructions. PERFORMED BY: [place] [address] PATHOLOGIST FAIRGROUND OPERATOR LUIS DEE M.D. Performed By: #### M G, CBC, BMP #### [facility] [facility] [address] [place] [address] Platelet adequacy [Presence] in Blood by Light microscopyOrdered By: Jesse Valdez on 09-17-2024 Platelets LM Ql (Bld) Normal Normal [facility] Platelet mean volume [Entiti c volume] in Blood by Automated countOrdered By: Jesse Valdez on 09-17-2024 Platelet mean volume (Bld) [Entitic vol] 10.3 fL Normal 6.3-10.[address] [facility] Comment on above: Performed By: #### H S TROP, PTT, CK, BNP, PT, MG, TSH3, CMP, SCAN CBC #### [facility] [address] [place] [address] Platelet morphology finding [Identifier] in BloodOrdered By: Jesse Valdez on 09-17-2024 Platelet morphology finding Nom (Bld) Normal Normal [facility] Platelets [#/volume] in Bloo d by Automated countOrdered By: Jesse Valdez on 09-17-2024 Platelets (Bld) [#/Vol] 143 10*3/uL Low 150-[address] [facility] Comment on above: Performed By: #### H S TROP, PTT, CK, BNP, PT, MG, TSH3, CMP, SCAN CBC #### [place] [address] [place] Potassium [Moles/volume] in Serum or PlasmaOrdered By: Jesse Valdez on 09-17-2024 Potassium [Moles/Vol] 3.9 mmol/L Normal 3.5-5.1 [facility] Comment on above: Performed By: #### M G, CBC, BMP #### [facility] [address] [id number] [place] Protein [Mass/volume] in Ser um or PlasmaOrdered By: Jesse Valdez on 09-17-2024 Protein [Mass/Vol] 5.1 g/dL Low 6.4-8.9 [facility] Comment on above: Performed By: #### M G, CBC, BMP #### [facility] [address] [id number] [place] Protein [Mass/volume] in Uri ne by Test stripOrdered By: Jesse Valdez on 09-17-2024 Protein (U) [Mass/Vol] 50 mg/dL High Negative [facility] Comment on above: Order Comment: Name Collection Type:: Clean-Voided Midstream Performed By: #### A DDONUAPLUS #### [place] [id number] [facility] Prothrombin time (PT)Ordered By: Jesse Valdez on 09-17-2024 PT Coag (PPP) [Time] 17.3 s High 9.0-12.9 [facility] Comment on above: A hematocrit value g reater than 55% may lead to inaccurate results in coagulation testing. Patients having hematocrit values >55% require a special collection tube for coagulation studies. Please contact the laboratory at [phone] for redraw instructions. Result Comment: A he matocrit value greater than 55% may lead to inaccurate results in coagulation testing. Patients having hematocrit values >55% require a special collection tube for coagulation studies. Please contact the laboratory at [phone] for redraw instructions. Performed By: #### M G, CBC, BMP #### [facility] [address] [id number] [facility] RBC morphologyOrdered By: Abiodun Valdez on 09-17-2024 RBC morphology finding Nom (Bld) Normal Normal Normal [facility] Comment on above: Performed By: #### H S TROP, PTT, CK, BNP, PT, MG, TSH3, CMP, SCAN CBC #### [address] Scan and CBCon 09-17-2024 Mean Corpuscular HGB Conc 33.3 g/dL Normal 32.0-35.0 [facility] Comment on above: Performed By: #### H S TROP, PTT, CK, BNP, PT, MG, TSH3, CMP, SCAN CBC #### [address] Monocytes/100 WBC (Bld) 29.77 % High 0.00-20.00 [facility] Comment on above: Result Comment: For adults in ED, MDW > 20.0 may be associated with a higher risk of sepsis during the first 12 hrs of hospital admission Performed By: #### H S TROP, PTT, CK, BNP, PT, MG, TSH3, CMP, SCAN CBC #### [address] NRBC% 0.0 /100{WBC} Normal 0-0.5 [facility] Comment on above: Performed By: #### H S TROP, PTT, CK, BNP, PT, MG, TSH3, CMP, SCAN CBC #### [address] Platelet Estimate Normal Normal Normal [facility] Comment on above: Performed By: #### H S TROP, PTT, CK, BNP, PT, MG, TSH3, CMP, SCAN CBC #### [address] Platelet Morphology Normal Normal Normal [facility] Comment on above: Result Comment: PERF ORMED BY: [place] [address] PATHOLOGIST FAIRGROUND OPERATOR LUIS DEE M.D. Performed By: #### H S TROP, PTT, CK, BNP, PT, MG, TSH3, CMP, SCAN CBC #### [address] Serum globulin measurement b y calculation (mass/volume)Ordered By: Jesse Valdez on 09-17-2024 Globulin (S) [Mass/Vol] 2.4 g/dL Normal [facility] Comment on above: Performed By: #### M G, CBC, BMP #### [address] Serum or plasma albumin/glob ulin mass ratioOrdered By: Jesse Valdez on 09-17-2024 Albumin/Globulin [Mass ratio] 1.1 {ratio} Normal [facility] Comment on above: Performed By: #### M G, CBC, BMP #### [address] Serum or plasma anion gap de terminationOrdered By: Jesse Valdez on 09-17-2024 Anion gap [Moles/Vol] 10.4 mmol/L Normal 6.0-15.0 [facility] Comment on above: Performed By: #### M G, CBC, BMP #### [address] Sodium [Moles/volume] in Ser um or PlasmaOrdered By: Jesse Valdez on 09-17-2024 Sodium [Moles/Vol] 136 mmol/L Normal 136-145 [facility] Comment on above: Performed By: #### M G, CBC, BMP #### [address] Specific gravity Test strip (U) [Rel density]Ordered By: Jesse Valdez on 09-17-2024 Specific gravity (U) [Rel density] 1.023 1.001-1.[address] [facility] Thyrotropin [Units/volume] i n Serum or PlasmaOrdered By: Jesse Valdez on 09-17-2024 TSH Qn 3.69 m[IU]/L Normal 0.45-5.[address] [facility] Comment on above: Result Comment: PERF ORMED BY: [place] [address] PATHOLOGIST FAIRGROUND OPERATOR LUIS DEE M.D. Performed By: #### M G, CBC, BMP #### [address] Troponin I High Sensitivityo n 09-17-2024 Troponin I High Sensitivity 9.3 pg/mL Normal 0.0-15.0 [facility] Comment on above: Result Comment: PERF ORMED BY: [place] [address] PATHOLOGIST FAIRGROUND OPERATOR LUIS DEE M.D. Performed By: #### M G, CBC, BMP #### [facility] [address] [place] [address] Troponin I.cardiac [Mass/vol ume] in Serum or Plasma by Detection limit <= 0.01 ng/Ordered By: Jesse Valdez on 09-17-2024 Troponin I.cardiac DL <= 0.01 ng/mL [Mass/Vol] 9.3 pg/mL 0.0-15.[address] [facility] URINE CULTURE, ROUTINEon Bacteria identified Cx Nom (U) Urine Culture, Routine [facility] Bacteria identified Cx Nom (U) Mixed urogenital etienne [facility] Bacteria identified Cx Nom (U) Less than 10,000 colonies/mL [facility] Bacteria identified Cx Nom (U) [facility] Bacteria identified Cx Nom (U) [address], [place] [id number] [facility] Bacteria identified Cx Nom (U) Coffee Supervisor: Elpidio Delgado PhD, Phone: [phone] [facility] Urea nitrogen [Mass/volume] in Serum or PlasmaOrdered By: Jesse Valdez on 09-17-2024 Urea nitrogen [Mass/Vol] 41 mg/dL High 7-[address] [facility] Comment on above: Performed By: #### M G, CBC, BMP #### [facility] [address] [place] [address] Urine appearanceOrdered By: Jesse Valdez on 09-17-2024 Appearance (U) Clear Normal Clear [facility] Comment on above: Order Comment: Name Collection Type:: Clean-Voided Midstream Performed By: #### A DDONUAPLUS #### [facility] [address] [place] [address] Urobilinogen Test strip (U) [Mass/Vol]Ordered By: Jesse Valdez on 09-17-2024 Urobilinogen (U) [Mass/Vol] Normal mg/dL Normal [facility] Venous Blood GasOrdered By: Jesse Valdez on 09-17-2024 CO2 [Moles/Vol] 16.9 mmol/L Low 24.0-29.0 [place] Comment on above: Performed By: #### V BG #### Point of Care testing , HCO3 (Bld) [Moles/Vol] 15.9 mmol/L Low 23.0-29.0 [facility] Comment on above: Performed By: #### V BG #### Point of Care testing , Venous Blood Gason Respiratory Critical Normal [facility] Comment on above: Result Comment: Crit ical Value called on: 09/17/2024 at 22:50 PERFORMED BY: [facility] [address] [place] [address] PATHOLOGIST FAIRGROUND OPERATOR LUIS DEE M.D. Performed By: #### V BG #### Point of Care testing , VBG Base Excess -8.6 mmol/L Low -3.0-3.0 [facility] Comment on above: Performed By: #### V BG #### Point of Care testing , VBG Draw Site Venous Normal [facility] Comment on above: Performed By: #### V BG #### Point of Care testing , VBG Frac Inspired O2 21 % Normal [facility] Comment on above: Performed By: #### V BG #### Point of Care testing , VBG Oxygen Saturation 76.2 % High 73.0-76.0 [facility] Comment on above: Performed By: #### V BG #### Point of Care testing , VBG PCO2 30.5 mm[Hg] Low 38.0-50.0 [facility] Comment on above: Performed By: #### V BG #### Point of Care testing , VBG PH Venous PH 7.34 Normal 7.32-7.43 [facility] Comment on above: Performed By: #### V BG #### Point of Care testing , XR chest 2V*on 09-17-2024 XR chest 2V* [facility] [place] [address] [place], [place] [id number] XRay Report Signed Patient: Hailee Trivedi MR#: [id number] : 1940 Acct:[id number] Age/Sex: 84 / F ADM Date: 09/17/24 Loc: ER Room: Type: [facility] ER Attending Dr: Copies to: Jesse Valdez DO Ordering Provider: Jesse Valdez DO Date of Service: 09/17/24 XR/XR chest 2V*: Weakness XR chest 2V* 09/17/2024 8:59 PM SIGNS AND SYMPTOMS: Increasing weakness PROTOCOL: Frontal and lateral radiograph of the chest COMPARISON: 01/08/2020 FINDINGS: The trachea is midline. There is a right-sided Ehgoye-f-Wtcy with the tip at the cavoatrial junction. The heart and mediastinal structures are within normal limits. The lung parenchyma is clear. The bony thorax is intact. Degenerative changes are noted in the shoulders. XR/XR chest 2V* IMPRESSION: No acute cardiopulmonary pathology. Chronic findings are noted as above. Impression dictated by: Armando Huynh M.D.09/17/2024 10:43 PM Dictation Location: [place] [address] Transcribed By: [facility] 09/17/242242 Dictated By: Armando Huynh II, MD 09/17/242239 Signed By: 09/17/242242 Normal [facility] pH of Urine by Test stripOrd ered By: Jesse Valdez on 09-17-2024 pH (U) 5.5 [pH] Normal 5.0-9.[address] [facility] Comment on above: Order Comment: Name Collection Type:: Clean-Voided Midstream Performed By: #### A DDONUAPLUS #### [place] [id number] [facility] Basophils Auto (Bld) [#/Vol] on 09-14-2024 Basophils (Bld) [#/Vol] 0.0 10 3/uL 0.0-0.[address] [facility] Basophils/100 WBC Auto (Bld) on 09-14-2024 Basophils/100 WBC (Bld) 0.1 % Low 0.2-2.0 [facility] Eosinophils/100 WBC Auto (Bl d)on 09-14-2024 Eosinophils/100 WBC (Bld) 0.5 % Low 0.9-7.[address] [facility] Erythrocyte distribution wid th Auto (RBC) [Ratio]on 09-14-2024 Erythrocyte distribution width (RBC) [Ratio] 12.8 % 11.0-15.[address] [facility] Estimated glomerular filtrat ion rate (GFR) non- Americanon 09-14-2024 GFR/1.73 sq M.predicted among non-blacks MDRD (S/P/Bld) [Vol rate/Area] 16 mL/min/{1.73_m2} Low >=60 mL/min/1.7 3m [address] [facility] Globulin Calc (S) [Mass/Vol] on 09-14-2024 Globulin (S) [Mass/Vol] 3.3 g/dL [facility] Hematocrit Auto (Bld) [Volum e fraction]on 09-14-2024 Hematocrit (Bld) [Volume fraction] 37.5 % 36.0-48.[address] [facility] Hemoglobin [Mass/volume] in Bloodon 09-14-2024 Hemoglobin (Bld) [Mass/Vol] 12.7 g/dL 12.0-16.[address] [facility] Laboratory - Chemistry and C hemistry - challengeon 09-14-2024 Bilirubin Ql (U) Negative NEGATIVE [place] Glucose (U) [Mass/Vol] Negative NEGATIVE [facility] Ketones Ql (U) Negative NEGATIVE [facility] pH (U) 6.0 [pH] 5.0-9.[address] [facility] Specific gravity (U) [Rel density] 1.020 1.005-1.[address] [facility] Urobilinogen Qn (U) 0.2 {Marley'U}/dL 0.2-1.[address] [facility] Albumin [Mass/Vol] 2.6 g/dL Low 3.4-5.0 [facility] ALP [Catalytic activity/Vol] 84 U/L 46-[address] [facility] ALT [Catalytic activity/Vol] 32 U/L 14-[address] [facility] AST [Catalytic activity/Vol] 19 U/L 15-[address] [facility] Bilirubin [Mass/Vol] 0.3 mg/dL 0.2-1.0 [facility] Calcium [Mass/Vol] 8.2 mg/dL Low 8.5-10.1 [facility] Chloride [Moles/Vol] 111 mmol/L High 98-107 [facility] CO2 [Moles/Vol] 18.4 mmol/L Low 21.0-32.0 [place] Creatinine [Mass/Vol] 2.86 mg/dL High 0.55-1.02 [facility] GFR/1.73 sq M.predicted MDRD (S/P/Bld) [Vol rate/Area] 19 mL/min/{1.73_m2} Low >=60 mL/min/1.7 3m [address] [facility] Glucose [Mass/Vol] 218 mg/dL High 74-106 [facility] Lipase [Catalytic activity/Vol] 78.0 U/L High 16.0-77.[address] [facility] Potassium [Moles/Vol] 3.8 mmol/L 3.5-5.1 [facility] Protein [Mass/Vol] 5.9 g/dL Low 6.4-8.2 [facility] Sodium [Moles/Vol] 142 mmol/L 136-145 [facility] TSH Qn 1.683 m[IU]/L 0.358-3.[address] [facility] Urea nitrogen [Mass/Vol] 47.0 mg/dL High 7.0-18.[address] [facility] Urea nitrogen/Creatinine [Mass ratio] 16.4 mg/mg [facility] Laboratory - Hematology and Cell countson 09-14-2024 Immature granulocytes/100 WBC (Bld) 1.0 % High 0.0-0.[address] [facility] Laboratory - Specimen inform ationon 09-14-2024 Appearance (U) CLEAR CLEAR [facility] Color (U) LT. YELLOW YELLOW [facility] Laboratory - Urinalysison Leukocyte esterase Test strip Ql (U) MODERATE Abnormal NEGATIVE [facility] Mucus Ql (Urine sed) NONE SEEN NONE SEEN [facility] Nitrite Ql (U) Negative NEGATIVE [facility] Protein Ql (U) TRACE mg/dL NEG/TRACE [facility] Leukocytes [#/volume] correc dominick for nucleated erythrocytes in Blood by Automated counon 09-14-2024 WBC corrected for nucl RBC Auto (Bld) [#/Vol] 15.6 10 3/uL High 4.0-11.[address] [facility] Lymphocytes Auto (Bld) [#/Vo l]on 09-14-2024 Lymphocytes (Bld) [#/Vol] 3.0 10 3/uL 1.2-3.[address] [facility] Lymphocytes/100 WBC Auto (Bl d)on 09-14-2024 Lymphocytes/100 WBC (Bld) 19.0 % Low 20.5-60.[address] [facility] MCH Auto (RBC) [Entitic mass ]on 09-14-2024 MCH (RBC) [Entitic mass] 32.2 pg 26.7-34.[address] [facility] MCHC Auto (RBC) [Mass/Vol]on 09-14-2024 MCHC (RBC) [Mass/Vol] 33.9 g/dL 29.9-35.2 [facility] MCV Auto (RBC) [Entitic vol] on 09-14-2024 MCV (RBC) [Entitic vol] 94.9 fL 81.0-99.0 [facility] Monocytes Auto (Bld) [#/Vol] on 09-14-2024 Monocytes (Bld) [#/Vol] 0.8 10 3/uL 0.3-0.[address] [facility] Monocytes/100 WBC Auto (Bld) on 09-14-2024 Monocytes/100 WBC (Bld) 5.1 % 1.7-12.0 [facility] Neutrophils Auto (Bld) [#/Vo l]on 09-14-2024 Neutrophils (Bld) [#/Vol] 11.6 10 3/uL High 1.4-6.[address] [facility] Neutrophils/100 WBC Auto (Bl d)on 09-14-2024 Neutrophils/100 WBC (Bld) 74.3 % 43.0-75.[address] [facility] No Panel Informationon 09-14 Troponin I High Sensitivity 6.9 pg/mL 4.0-51.[address] [facility] Comment on above: CUT-OFF POINTS HAVE BEEN [...] CLINICAL INFORMATION. Miscellaneous Test Comment See comment [facility] Comment on above: Specimen Source: UCC - Urine,Clean Catch - Urine CC - 200.100 Urine Bacteria TRACE #/HPF Abnormal NONE SEEN [facility] Urine Culture Reflexed YES [facility] Urine Culture Result 1 \R\ Urine Culture , Routine [facility] Urine Microscopic Review YES [facility] Urine Occult Blood TRACE-I NEGATIVE [facility] Urine Other Casts NONE SEEN #/LPF NONE SEEN [facility] Urine Other Crystals None Seen #/HPF None Seen [facility] Urine RBC 2-5 #/HPF Abnormal 0-[address] [facility] Urine Squamous Epithelial Cells FEW #/LPF Abnormal NONE/RARE [facility] Urine WBC 5-10 #/HPF Abnormal NONE SEEN [facility] Eosinophils # (Auto) 0.1 10 3/uL 0.0-0.7 [facility] Immature Granulocyte # (Auto) 0.15 10 3/uL High 0.00-0.[address] [facility] Platelet mean volume Auto (B ld) [Entitic vol]on 09-14-2024 Platelet mean volume (Bld) [Entitic vol] 11.3 fL 9.5-13.[address] [facility] Platelets Auto (Bld) [#/Vol] on 09-14-2024 Platelets (Bld) [#/Vol] 229 10 3/uL 150-[address] [facility] RBC Auto (Bld) [#/Vol]on RBC (Bld) [#/Vol] 3.95 10 6/uL Low 4.20-5.40 [place] Serum or plasma albumin/glob ulin mass ratioon 09-14-2024 Albumin/Globulin [Mass ratio] 0.8 {ratio} [facility] Serum or plasma anion gap de terminationon 09-14-2024 Anion gap [Moles/Vol] 16.4 mmol/L [facility] Alanine aminotransferase [En zymatic activity/volume] in Serum or PlasmaOrdered By: Claire Choi on 08-01-2024 ALT [Catalytic activity/Vol] 10 U/L Normal 7-[address] [facility] Comment on above: Performed By: #### C MP, CBC #### [facility] [address] Albumin [Mass/volume] in Ser um or PlasmaOrdered By: Claire Choi on 08-01-2024 Albumin [Mass/Vol] 3.5 g/dL Normal 2.9-4.4 [facility] Comment on above: Performed By: #### M G, CBC, BMP #### [facility] [address] [place] [address] [place] Albumin [Mass/volume] in Ser um or Plasma by Bromocresol green (BCG) dye binding methoOrdered By: Claire Choi on 08-01-2024 Albumin BCG dye [Mass/Vol] 3.9 g/dL 3.5-5.[address] [facility] Alkaline phosphatase [Enzyma tic activity/volume] in Serum or PlasmaOrdered By: Claire Choi on 08-01-2024 ALP [Catalytic activity/Vol] 99 U/L Normal 34-[address] [facility] Comment on above: Performed By: #### C MP, CBC #### [facility] [address] [place] [address] [place] Aspartate aminotransferase [ Enzymatic activity/volume] in Serum or PlasmaOrdered By: Claire Choi on 08-01-2024 AST [Catalytic activity/Vol] 14 U/L Normal 13-[address] [facility] Comment on above: Performed By: #### C MP, CBC #### [facility] [address] [place] [address] [place] Automated basophil %Ordered By: Claire Choi on 08-01-2024 Basophils/100 WBC (Bld) 0.4 % Normal . [facility] Comment on above: Performed By: #### C MP, CBC #### [address] Automated basophil countOrde red By: Claire Choi on 08-01-2024 Basophils (Bld) [#/Vol] 0.0 10*3/uL Normal 0.0-0.[address] [facility] Comment on above: Result Comment: PERF ORMED BY: [place] [address] PATHOLOGIST FAIRGROUND OPERATOR LUIS DEE M.D. Performed By: #### C MP, CBC #### [address] Automated blood monocyte cou ntOrdered By: Claire Choi on 08-01-2024 Monocytes (Bld) [#/Vol] 0.7 10*3/uL Normal 0.0-0.[address] [facility] Comment on above: Performed By: #### C MP, CBC #### [address] Automated eosinophil %Ordere d By: Claire Choi on 08-01-2024 Eosinophils/100 WBC (Bld) 1.2 % Normal . [facility] Comment on above: Performed By: #### C MP, CBC #### [address] Automated eosinophil countOr dered By: Claire Choi on 08-01-2024 Eosinophils (Bld) [#/Vol] 0.1 10*3/uL Normal 0.0-0.[address] [facility] Comment on above: Performed By: #### C MP, CBC #### [address] Automated monocyte %Ordered By: Claire Choi on 08-01-2024 Monocytes/100 WBC (Bld) 7.9 % Normal . [facility] Comment on above: Performed By: #### C MP, CBC #### [address] Automated neutrophil %Ordere d By: Claire Choi on 08-01-2024 Neutrophils/100 WBC (Bld) 59.7 % Normal . [facility] Comment on above: Performed By: #### C MP, CBC #### [facility] [address] Bilirubin.total [Mass/volume ] in Serum or PlasmaOrdered By: Claire Choi on 08-01-2024 Bilirubin [Mass/Vol] 0.6 mg/dL Normal 0.3-1.0 [facility] Comment on above: Performed By: #### C MP, CBC #### [address] Calcium [Mass/volume] in Ser um or PlasmaOrdered By: Claire Choi on 08-01-2024 Calcium [Mass/Vol] 8.6 mg/dL Normal 8.6-10.3 [facility] Comment on above: Performed By: #### C MP, CBC #### [address] Carbon dioxide, total [Moles /volume] in Serum or PlasmaOrdered By: Claire Choi on 08-01-2024 CO2 [Moles/Vol] 22.2 mmol/L Normal 21.0-31.0 [place] Comment on above: Performed By: #### C MP, CBC #### [place] [address] [place] Chloride [Moles/volume] in S amanda or PlasmaOrdered By: Claire Choi on 08-01-2024 Chloride [Moles/Vol] 108 mmol/L High 98-107 [facility] Comment on above: Performed By: #### C MP, CBC #### [address] Complete Blood Count Auto Di ffon 08-01-2024 Mean Corpuscular HGB Conc 33.6 g/dL Normal 32.0-35.0 [facility] Comment on above: Performed By: #### C MP, CBC #### [address] NRBC% 0.1 /100{WBC} Normal 0-0.5 [facility] Comment on above: Performed By: #### C MP, CBC #### [address] Comprehensive Metabolic Pane natalia 08-01-2024 Albumin [Mass/Vol] 3.9 g/dL Normal 3.5-5.7 [facility] Comment on above: Performed By: #### C MP, CBC #### [address] Creatinine Clr Calc Pharmacy 16.51 Normal [facility] Comment on above: Result Comment: PERF ORMED BY: [place] [address] PATHOLOGIST FAIRGROUND OPERATOR LUIS DEE M.D. Performed By: #### C MP, CBC #### [address] GFR/1.73 sq M.predicted MDRD (S/P/Bld) [Vol rate/Area] 15.173 mL/min/{1.73_m2} Normal [facility] Comment on above: Performed By: #### C MP, CBC #### [address] Creatinine [Mass/volume] in Serum or PlasmaOrdered By: Claire Choi on 08-01-2024 Creatinine [Mass/Vol] 2.98 mg/dL High 0.60-1.20 [facility] Comment on above: Performed By: #### C MP, CBC #### [address] Erythrocyte distribution wid th [Ratio] by Automated countOrdered By: Claire Choi on 08-01-2024 Erythrocyte distribution width (RBC) [Ratio] 13.7 % Normal 11.9-15.[address] [facility] Comment on above: Performed By: #### C MP, CBC #### [address] Erythrocytes [#/volume] in B lood by Automated countOrdered By: Claire Choi on 08-01-2024 RBC (Bld) [#/Vol] 3.93 10*6/uL Normal 3.60-5.00 [place] Comment on above: Performed By: #### C MP, CBC #### [place] [address] [place] Free K+L LT Chains, Qn, Son 08-01-2024 Free Spiro Light Chains, S 47.2 mg/L High 3.3-19.4 [facility] Comment on above: Performed By: #### M G, CBC, BMP #### [address] Free Lambda Light Chains, S 28.6 mg/L High 5.7-26.3 [facility] Comment on above: Performed By: #### M G, CBC, BMP #### [address] Spiro/Lambda Ratio, S 1.65 Normal 0.26-1.65 [facility] Comment on above: Result Comment: Perf ormed at: - [facility] [place] [id number] Coffee Supervisor: Elpidio Delgado PhD, Phone: [phone] PERFORMED BY: [place] [address] PATHOLOGIST FAIRGROUND OPERATOR LUIS DEE M.D. Performed By: #### M G, CBC, BMP #### [place] [address] [place] Glucose [Mass/volume] in Ser um or PlasmaOrdered By: Claire Choi on 08-01-2024 Glucose [Mass/Vol] 102 mg/dL High 70-100 [facility] Comment on above: ADA recommended refe rence rangeRandom Glucose Reference Range is dependent on time and content of last meal. Glucose of more than 200 mg/dL in a nonstressed, ambulatory subject supports the diagnosis of Diabetes Mellitus. Result Comment: [place] Glucose Reference Range is dependent on time and content of last meal. Glucose of more than 200 mg/dL in a nonstressed, ambulatory subject supports the diagnosis of Diabetes Mellitus. ADA recommended reference range Performed By: #### C MP, CBC #### [facility] [address] [place] [id number] [facility] Hematocrit [Volume Fraction] of Blood by Automated countOrdered By: Claire Choi on 08-01-2024 Hematocrit (Bld) [Volume fraction] 37.9 % Normal 34.0-46.[address] [facility] Comment on above: Performed By: #### C MP, CBC #### [facility] [address] [place] [address] [place] Hemoglobin [Mass/volume] in BloodOrdered By: Claire Choi on 08-01-2024 Hemoglobin (Bld) [Mass/Vol] 12.7 g/dL Normal 11.8-15.[address] [facility] Comment on above: Performed By: #### C MP, CBC #### [facility] [address] [place] [address] [place] IgA [Mass/volume] in Serum o r PlasmaOrdered By: Claire Choi on 08-01-2024 IgA [Mass/Vol] 241 mg/dL 64-[address] [facility] IgE [Units/volume] in Serum or PlasmaOrdered By: Claire Choi on 08-01-2024 IgE Qn 13 [IU]/mL 6-[address] [facility] Comment on above: Performed at: [employer] [address] [id number] Director: Britton Valente MD, Phone: [phone] IgG [Mass/volume] in Serum o r PlasmaOrdered By: Claire Choi on 08-01-2024 IgG [Mass/Vol] 1009 mg/dL [phone] [facility] IgM [Mass/volume] in Serum o r PlasmaOrdered By: Claire Choi on 08-01-2024 IgM [Mass/Vol] 144 mg/dL 26-[address] [facility] Comment on above: Performed at: [employer] [address] [id number] Director: Elpidio Delgado PhD, Phone: [phone] Immunofixation,Serumon 08-01 Immunofixation, Serum Comment Normal . [facility] Comment on above: Result Comment: No m onoclonality detected. Performed By: #### M G, CBC, BMP #### [facility] [address] [place] [address] [place] Immunoglobulin A, Serum 241 mg/dL Normal 64-422 [facility] Comment on above: Performed By: #### M G, CBC, BMP #### [facility] [address] [place] [address] [place] Immunoglobulin G 1009 mg/dL Normal [phone] [facility] Comment on above: Performed By: #### M G, CBC, BMP #### [facility] [address] [place] [address] [place] Immunoglobulin M, Serum 144 mg/dL Normal 26-217 [facility] Comment on above: Result Comment: Perf ormed at: CB - [facility] [place] [id number] [place] [id number] Coffee Supervisor: Elpidio Delgado PhD, Phone: [phone] Performed By: #### M G, CBC, BMP #### [facility] [address] [place] [id number] [facility] Immunoglobulin light chains. kappa.free [Mass/volume] in SerumOrdered By: Claire Choi on 08-01-2024 Immunoglobulin light chains.kappa.free (S) [Mass/Vol] 47.2 mg/L High 3.3-19.[address] [facility] Immunoglobulin light chains. kappa.free/Immunoglobulin light chains.lambda.free [MassOrdered By: Claire Choi on 08-01-2024 Immunoglobulin light chains.kappa.free/Immuno globulin light chains.lambda.free (S) [Mass ratio] 1.65 0.26-1.[address] [facility] Comment on above: Performed at: CB - [facility] [id number] [place] [id number] Director: Elpidio Delgado PhD, Phone: [phone] Immunoglobulin light chains. lambda.free [Mass/volume] in Serum or PlasmaOrdered By: Claire Choi on 08-01-2024 Immunoglobulin light chains.lambda.free [Mass/Vol] 28.6 mg/L High 5.7-26.[address] [facility] Immunoglobulins A/E/G/M, Qno n 08-01-2024 Immunoglobulin E 13 Normal 6-495 [facility] Comment on above: Result Comment: Perf ormed at: BN - [facility] [address] [id number] Coffee Supervisor: Britton Valente MD, Phone: [phone] Performed By: #### M G, CBC, BMP #### [address] Leukocytes [#/volume] correc dominick for nucleated erythrocytes in Blood by Automated counOrdered By: Claire Choi on 08-01-2024 WBC corrected for nucl RBC Auto (Bld) [#/Vol] 9.0 10*3/uL 3.8-11.[address] [facility] Leukocytes [#/volume] in Blo od by Automated countOrdered By: Claire Choi on 08-01-2024 WBC (Bld) [#/Vol] 9.0 10*3/uL Normal 3.8-11.6 [facility] Comment on above: Performed By: #### C MP, CBC #### [facility] [address] [place] [address] [place] Lymphocytes [#/volume] in Bl ood by Automated countOrdered By: Claire Choi on 08-01-2024 Lymphocytes (Bld) [#/Vol] 2.8 10*3/uL Normal 1.00-4.[address] [facility] Comment on above: Performed By: #### C MP, CBC #### [facility] [address] [place] [address] [place] Lymphocytes/100 leukocytes i n Blood by Automated countOrdered By: Claire Choi on 08-01-2024 Lymphocytes/100 WBC (Bld) 30.8 % Normal . [facility] Comment on above: Performed By: #### C MP, CBC #### [facility] [address] MCH [Entitic mass] by Automa dominick countOrdered By: Claire Choi on 08-01-2024 MCH (RBC) [Entitic mass] 32.5 pg Normal 24.7-34.[address] [facility] Comment on above: Performed By: #### C MP, CBC #### [address] MCHC Auto (RBC) [Mass/Vol]Or dered By: Claire Choi on 08-01-2024 MCHC (RBC) [Mass/Vol] 33.6 g/dL 32.0-35.0 [facility] MCV [Entitic volume] by Auto mated countOrdered By: Claire Choi on 08-01-2024 MCV (RBC) [Entitic vol] 96.6 fL Normal 80-100 [facility] Comment on above: Performed By: #### C MP, CBC #### [address] Neutrophils [#/volume] in Bl ood by Automated countOrdered By: Claire Choi on 08-01-2024 Neutrophils (Bld) [#/Vol] 5.4 10*3/uL Normal 1.8-7.[address] [facility] Comment on above: Performed By: #### C MP, CBC #### [address] No Panel InformationOrdered By: Claire Choi on 08-01-2024 Estimated GFR (CKD-EPI) 15.173 mL/Min [facility] Creatinine Clearance (Chem 16.[address] [facility] Protein Electrophoresis M-Krystian Not observed g/dL Not Observed [facility] Protein Electrophoresis Note Comment . [facility] Comment on above: Protein electrophore sis scan will follow via computer,mail, or gas engine mechanic delivery. Serum Immunofixation Comment . [facility] Comment on above: No monoclonality det ected. Nucleated erythrocytes [Pres ence] in Blood by Automated countOrdered By: Claire Choi on 08-01-2024 Nucleated RBC Auto Ql (Bld) 0.1 /100{WBC} 0-0.[address] [facility] Platelet mean volume [Entiti c volume] in Blood by Automated countOrdered By: Claire Choi on 08-01-2024 Platelet mean volume (Bld) [Entitic vol] 9.8 fL Normal 6.3-10.[address] [facility] Comment on above: Performed By: #### C MP, CBC #### [place] [address] [place] Platelets [#/volume] in Bloo d by Automated countOrdered By: Claire Choi on 08-01-2024 Platelets (Bld) [#/Vol] 209 10*3/uL Normal 150-[address] [facility] Comment on above: Performed By: #### C MP, CBC #### [address] Potassium [Moles/volume] in Serum or PlasmaOrdered By: Claire Choi on 08-01-2024 Potassium [Moles/Vol] 4.9 mmol/L Normal 3.5-5.1 [facility] Comment on above: Performed By: #### C MP, CBC #### [place] [address] [place] Protein Electrophoresis, Ser umon 08-01-2024 Urozf-7-Mrtwumth 0.1 g/dL Normal 0.0-0.4 [facility] Comment on above: Performed By: #### M G, CBC, BMP #### [place] [address] [place] Armji-4-Zmocyazu 0.9 g/dL Normal 0.4-1.0 [facility] Comment on above: Performed By: #### M G, CBC, BMP #### [address] Beta Globulin 0.9 g/dL Normal 0.7-1.3 [facility] Comment on above: Performed By: #### M G, CBC, BMP #### [address] Gamma Globulin 1.0 g/dL Normal 0.4-1.8 [facility] Comment on above: Performed By: #### M G, CBC, BMP #### [address] M-Krystian Not Observed Normal Not Observed [facility] Comment on above: Performed By: #### M G, CBC, BMP #### [address] SPE-Note Comment Normal . [facility] Comment on above: Result Comment: Prot ein electrophoresis scan will follow via computer, mail, or gas engine mechanic delivery. Performed By: #### M G, CBC, BMP #### [address] Protein [Mass/volume] in Ser um or PlasmaOrdered By: Claire Choi on 08-01-2024 Protein [Mass/Vol] 6.8 g/dL Normal 6.4-8.9 [facility] Comment on above: Performed By: #### C MP, CBC #### [address] Protein [Mass/Vol] 6.5 g/dL Normal 6.0-8.5 [facility] Comment on above: Performed By: #### M Dalia, CBC, BMP #### [address] Serum globulin measurement ( mass/volume)Ordered By: Claire Choi on 08-01-2024 Globulin (S) [Mass/Vol] 3.0 g/dL Normal 2.2-3.9 [facility] Comment on above: Performed By: #### M G, CBC, BMP #### [address] Serum globulin measurement b y calculation (mass/volume)Ordered By: Claire Choi on 08-01-2024 Globulin (S) [Mass/Vol] 2.9 g/dL Normal [facility] Comment on above: Performed By: #### C MP, CBC #### [address] Serum or plasma albumin/glob ulin mass ratioOrdered By: Claire Choi on 08-01-2024 Albumin/Globulin [Mass ratio] 1.3 {ratio} Normal [facility] Comment on above: Performed By: #### C MP, CBC #### [address] Albumin/Globulin [Mass ratio] 1.2 {ratio} Normal 0.7-1.[address] [facility] Comment on above: Performed By: #### M G, CBC, BMP #### [address] Serum or plasma alpha 1 glob ulin measurement by electrophoresis (mass/volume)Ordered By: Claire Choi on 08-01-2024 Alpha 1 globulin Elph [Mass/Vol] 0.1 g/dL 0.0-0.[address] [facility] Serum or plasma alpha 2 glob ulin measurement by electrophoresis (mass/volume)Ordered By: Claire Choi on 08-01-2024 Alpha 2 globulin Elph [Mass/Vol] 0.9 g/dL 0.4-1.[address] [facility] Serum or plasma anion gap de terminationOrdered By: Claire Choi on 08-01-2024 Anion gap [Moles/Vol] 12.7 mmol/L Normal 6.0-15.0 [facility] Comment on above: Performed By: #### C MP, CBC #### [address] Serum or plasma beta globuli n measurement by electrophoresis (mass/volume)Ordered By: Claire Choi on 08-01-2024 Beta globulin Elph [Mass/Vol] 0.9 g/dL 0.7-1.[address] [facility] Serum or plasma gamma globul in measurement by electrophoresis (mass/volume)Ordered By: Claire Choi on 08-01-2024 Gamma globulin Elph [Mass/Vol] 1.0 g/dL 0.4-1.[address] [facility] Sodium [Moles/volume] in Ser um or PlasmaOrdered By: Claire Choi on 08-01-2024 Sodium [Moles/Vol] 138 mmol/L Normal 136-145 [facility] Comment on above: Performed By: #### C MP, CBC #### [facility] [address] Urea nitrogen [Mass/volume] in Serum or PlasmaOrdered By: Claire Choi on 08-01-2024 Urea nitrogen [Mass/Vol] 40 mg/dL High 7-[address] [facility] Comment on above: Performed By: #### C MP, CBC #### [facility] [address] Erythrocyte distribution wid th Auto (RBC) [Ratio]on 06-27-2024 Erythrocyte distribution width (RBC) [Ratio] 12.6 % 11.0-15.[address] [facility] Estimated glomerular filtrat ion rate (GFR) non- Americanon 06-27-2024 GFR/1.73 sq M.predicted among non-blacks MDRD (S/P/Bld) [Vol rate/Area] 17 mL/min/{1.73_m2} Low >=[address] [facility] Hematocrit Auto (Bld) [Volum e fraction]on 06-27-2024 Hematocrit (Bld) [Volume fraction] 40.7 % 36.0-48.[address] [facility] Hemoglobin [Mass/volume] in Bloodon 06-27-2024 Hemoglobin (Bld) [Mass/Vol] 13.2 g/dL 12.0-16.[address] [facility] Laboratory - Chemistry and C hemistry - challengeon 06-27-2024 Bilirubin Ql (U) Negative NEGATIVE [place] Glucose (U) [Mass/Vol] Negative NEGATIVE [facility] Ketones Ql (U) Negative NEGATIVE [facility] pH (U) 6.0 [pH] 5.0-9.[address] [facility] Specific gravity (U) [Rel density] 1.020 1.005-1.[address] [facility] Urobilinogen Qn (U) 0.2 {Marley'U}/dL 0.2-1.[address] [facility] Albumin [Mass/Vol] 3.2 g/dL Low 3.4-5.0 [facility] Calcium [Mass/Vol] 8.6 mg/dL 8.5-10.1 [facility] Chloride [Moles/Vol] 103 mmol/L 98-107 [facility] CO2 [Moles/Vol] 26.2 mmol/L 21.0-32.0 [place] Creatinine [Mass/Vol] 2.67 mg/dL High 0.55-1.02 [facility] GFR/1.73 sq M.predicted MDRD (S/P/Bld) [Vol rate/Area] 21 mL/min/{1.73_m2} Low >=[address] [facility] Glucose [Mass/Vol] 139 mg/dL High 74-106 [facility] Magnesium [Mass/Vol] 2.0 mg/dL 1.8-2.4 [facility] Potassium [Moles/Vol] 5.2 mmol/L High 3.5-5.1 [facility] Sodium [Moles/Vol] 136 mmol/L 136-145 [facility] Urate [Mass/Vol] 6.4 mg/dL High 2.6-6.0 [place] Urea nitrogen [Mass/Vol] 38.0 mg/dL High 7.0-18.[address] [facility] Urea nitrogen/Creatinine [Mass ratio] 14.2 mg/mg [facility] Laboratory - Specimen inform ationon 06-27-2024 Appearance (U) CLEAR CLEAR [facility] Color (U) YELLOW YELLOW [facility] Laboratory - Urinalysison Leukocyte esterase Test strip Ql (U) MODERATE Abnormal NEGATIVE [facility] Mucus Ql (Urine sed) TRACE Abnormal NONE SEEN [facility] Nitrite Ql (U) Negative NEGATIVE [facility] Protein (U) [Mass/Vol] 85.7 mg/dL High <=11.9 [facility] Ql (U) 30 mg/dL Abnormal NEG/TRACE [facility] Leukocytes [#/volume] correc dominick for nucleated erythrocytes in Blood by Automated counon 06-27-2024 WBC corrected for nucl RBC Auto (Bld) [#/Vol] 7.9 10 3/uL 4.0-11.[address] [facility] MCH Auto (RBC) [Entitic mass ]on 06-27-2024 MCH (RBC) [Entitic mass] 31.6 pg 26.7-34.[address] [facility] MCHC Auto (RBC) [Mass/Vol]on 06-27-2024 MCHC (RBC) [Mass/Vol] 32.4 g/dL 29.9-35.2 [facility] MCV Auto (RBC) [Entitic vol] on 06-27-2024 MCV (RBC) [Entitic vol] 97.4 fL 81.0-99.0 [facility] No Panel Informationon 06-27 Urine Bacteria MODERATE #/HPF Abnormal NONE SEEN [facility] Urine Culture Reflexed YES [facility] Urine Occult Blood TRACE-I NEGATIVE [facility] Urine Other Casts NONE SEEN #/LPF NONE SEEN [facility] Urine Other Crystals None Seen #/HPF None Seen [facility] Urine Random Creatinine 190.05 mg/dL 20.0 0-300. [address] [facility] Urine RBC NONE SEEN #/HPF 0-[address] [facility] Urine Squamous Epithelial Cells FEW #/LPF Abnormal NONE/RARE [facility] Urine Transitional Epithelial Cells RARE #/LPF Abnormal NONE SEEN [facility] Urine WBC 10-20 #/HPF Abnormal NONE SEEN [facility] 25-Hydroxy Vitamin D Total 43.9 ng/mL [facility] Comment on above: <20 ng/mL Vit D defi cient20-<30 ng/mL Vit D nsgflwzcbegb32-001 ng/mL Vit D sufficient>100 ng/mL Potential Toxicity Parathyroid Hormone (Intact) 105 pg/mL Abnormal 15-[address] [facility] Comment on above: Performed at: - [employer] [address] [id number] Director: Elpidio Delgado PhD, Phone: [phone] Phosphorus Level 3.9 mg/dL 2.6-4.7 [place] Platelet mean volume Auto (B ld) [Entitic vol]on 06-27-2024 Platelet mean volume (Bld) [Entitic vol] 12.1 fL 9.5-13.[address] [facility] Platelets Auto (Bld) [#/Vol] on 06-27-2024 Platelets (Bld) [#/Vol] 188 10 3/uL 150-[address] [facility] RBC Auto (Bld) [#/Vol]on RBC (Bld) [#/Vol] 4.18 10 6/uL Low 4.20-5.40 [place] Serum or plasma anion gap de terminationon 06-27-2024 Anion gap [Moles/Vol] 12.0 mmol/L Fi [facility] Urine protein/creatinine rat ioon 06-27-2024 Protein/Creatinine (U) [Ratio] 0.[address] [facility] Cholesterol in LDL Calc [Mas s/Vol]on 05-23-2024 Cholesterol in LDL [Mass/Vol] 68.6 mg/dL [facility] Comment on above: <100 mg/dl [id number] 0-129 mg/dl NEAR OR ABOVE [id number] mg/dl BORDERLINE [id number] mg/dl HIGH>190 mg/dl VERY HIGH Cholesterol in VLDL Calc [Ma ss/Vol]on 05-23-2024 Cholesterol in VLDL [Mass/Vol] 28.4 mg/dL [facility] Estimated glomerular filtrat ion rate (GFR) non- Americanon 05-23-2024 GFR/1.73 sq M.predicted among non-blacks MDRD (S/P/Bld) [Vol rate/Area] 17 mL/min/{1.73_m2} Low >=[address] [facility] Laboratory - Chemistry and C hemistry - challengeon 05-23-2024 Albumin [Mass/Vol] 3.2 g/dL Low 3.4-5.0 [facility] Calcium [Mass/Vol] 8.7 mg/dL 8.5-10.1 [facility] Chloride [Moles/Vol] 104 mmol/L 98-107 [facility] Cholesterol [Mass/Vol] 154 mg/dL <=200 [facility] Cholesterol in HDL [Mass/Vol] 57 mg/dL 40-[address] [facility] Comment on above: > or =60 mg/dl - LOW CARDIOVASCULAR RISK<40 mg/dl - HIGH CARDIOVASCULAR RISK CO2 [Moles/Vol] 26.2 mmol/L 21.0-32.0 [place] Creatinine [Mass/Vol] 2.71 mg/dL High 0.55-1.02 [facility] GFR/1.73 sq M.predicted MDRD (S/P/Bld) [Vol rate/Area] 20 mL/min/{1.73_m2} Low >=[address] [facility] Glucose [Mass/Vol] 147 mg/dL High 74-106 [facility] Potassium [Moles/Vol] 4.9 mmol/L 3.5-5.1 [facility] Sodium [Moles/Vol] 140 mmol/L 136-145 [facility] Triglyceride [Mass/Vol] 142 mg/dL <=150 [facility] Urea nitrogen [Mass/Vol] 31.0 mg/dL High 7.0-18.[address] [facility] Urea nitrogen/Creatinine [Mass ratio] 11.4 mg/mg [facility] Microalbumin [Mass/volume] i n Urineon 05-23-2024 Albumin DL <= 20 mg/L (U) [Mass/Vol] 24.5 mg/dL <=30.[address] [facility] No Panel Informationon 05-23 25-Hydroxy Vitamin D Total 46.7 ng/mL [facility] Comment on above: <20 ng/mL Vit D defi cient20-<30 ng/mL Vit D feinsipkyweh67-926 ng/mL Vit D sufficient>100 ng/mL Potential Toxicity C-Peptide 3.7 ng/mL 1.1-4.[address] [facility] Comment on above: C-Peptide reference interval is for fasting patients.Performed at: - [facility] [id number] Director: Elpidio Delgado PhD, Phone: [phone] Phosphorus Level 4.1 mg/dL 2.6-4.7 [place] Urine Random Creatinine 233.38 mg/dL 20.0 0-300. [address] [facility] Serum or plasma anion gap de terminationon 05-23-2024 Anion gap [Moles/Vol] 14.7 mmol/L [facility] Serum or plasma total choles terol/high density lipoprotein (HDL) cholesterol mass wilfred 05-23-2024 Cholesterol.total/Choles terol in HDL [Mass ratio] 2.7 {ratio} [facility] Comment on above: 3.3 - 4.4 LOW RISK4. 4 - 7.1 AVERAGE RISK7.1 - 11.0 MODERATE RISK>11.0 HIGH RISK Urine microalbumin/creatinin e mass ratioon 05-23-2024 Albumin/Creatinine DL <= 20 mg/L (U) [Mass ratio] 104.9 mg/g High 0.0-29.9 [facility] Comment on above: NO MICROALBUMINURIA 0-29 MG/GCLINICAL MICROALBUMINURIA 30-300 MG/GMACROALBUMINURIA >300 MG/G Alanine aminotransferase [En zymatic activity/volume] in Serum or PlasmaOrdered By: Misti Connolly on 04-25-2024 ALT [Catalytic activity/Vol] 12 U/L Normal 7-[address] [facility] Comment on above: Performed By: #### M Dalia, CBC, BMP #### [facility] [address] [place] [address] [place] Albumin [Mass/volume] in Ser um or PlasmaOrdered By: Misti Connolly on 04-25-2024 Albumin [Mass/Vol] 3.4 g/dL Normal 2.9-4.4 [facility] Comment on above: Performed By: #### Marie Gómez, CBC, BMP #### [facility] [address] [place] [address] [place] Albumin [Mass/volume] in Ser um or Plasma by Bromocresol green (BCG) dye binding methoOrdered By: Misti Connolly on 04-25-2024 Albumin BCG dye [Mass/Vol] 3.6 g/dL 3.5-5.[address] [facility] Alkaline phosphatase [Enzyma tic activity/volume] in Serum or PlasmaOrdered By: Misti Connolly on 04-25-2024 ALP [Catalytic activity/Vol] 106 U/L High 34-[address] [facility] Comment on above: Performed By: #### M G, CBC, BMP #### [facility] [address] [place] [address] [place] Aspartate aminotransferase [ Enzymatic activity/volume] in Serum or PlasmaOrdered By: Misti Jeanboske on 04-25-2024 AST [Catalytic activity/Vol] 15 U/L Normal 13-[address] [facility] Comment on above: Performed By: #### M G, CBC, BMP #### [address] Automated basophil %Ordered By: Misti Mohsen on 04-25-2024 Basophils/100 WBC (Bld) 0.6 % Normal . [facility] Comment on above: Performed By: #### M G, CBC, BMP #### [address] Automated basophil countOrde red By: Misti Mohsen on 04-25-2024 Basophils (Bld) [#/Vol] 0.0 10*3/uL Normal 0.0-0.[address] [facility] Comment on above: Result Comment: PERF ORMED BY: [place] [address] PATHOLOGIST FAIRGROUND OPERATOR LUIS DEE M.D. Performed By: #### M G, CBC, BMP #### [address] Automated blood monocyte cou ntOrdered By: Misti Mohsen on 04-25-2024 Monocytes (Bld) [#/Vol] 0.5 10*3/uL Normal 0.0-0.[address] [facility] Comment on above: Performed By: #### M G, CBC, BMP #### [address] Automated eosinophil %Ordere d By: Misti Mohsen on 04-25-2024 Eosinophils/100 WBC (Bld) 1.4 % Normal . [facility] Comment on above: Performed By: #### M G, CBC, BMP #### [address] Automated eosinophil countOr dered By: Misti Mohsen on 04-25-2024 Eosinophils (Bld) [#/Vol] 0.1 10*3/uL Normal 0.0-0.[address] [facility] Comment on above: Performed By: #### M G, CBC, BMP #### [facility] [address] Automated monocyte %Ordered By: Misti Jeanpamela on 04-25-2024 Monocytes/100 WBC (Bld) 6.3 % Normal . [facility] Comment on above: Performed By: #### M G, CBC, BMP #### [facility] [address] Automated neutrophil %Ordere d By: Misti Mohsen on 04-25-2024 Neutrophils/100 WBC (Bld) 60.7 % Normal . [facility] Comment on above: Performed By: #### M G, CBC, BMP #### [facility] [address] Bilirubin.total [Mass/volume ] in Serum or PlasmaOrdered By: Misti Mohsen on 04-25-2024 Bilirubin [Mass/Vol] 0.3 mg/dL Normal 0.3-1.0 [facility] Comment on above: Performed By: #### M G, CBC, BMP #### [facility] [address] [place] [address] [place] Calcium [Mass/volume] in Ser um or PlasmaOrdered By: Misti Mohsen on 04-25-2024 Calcium [Mass/Vol] 8.6 mg/dL Normal 8.6-10.3 [facility] Comment on above: Performed By: #### M G, CBC, BMP #### [facility] [address] [place] [address] [place] Carbon dioxide, total [Moles /volume] in Serum or PlasmaOrdered By: Misti Mohsen on 04-25-2024 CO2 [Moles/Vol] 20.5 mmol/L Low 21.0-31.0 [place] Comment on above: Performed By: #### M G, CBC, BMP #### [facility] [address] [place] [address] [place] Chloride [Moles/volume] in S amanda or PlasmaOrdered By: Misti Mohsen on 04-25-2024 Chloride [Moles/Vol] 108 mmol/L High 98-107 [facility] Comment on above: Performed By: #### M G, CBC, BMP #### [address] Complete Blood Count Auto Di ffon 04-25-2024 Mean Corpuscular HGB Conc 33.3 g/dL Normal 32.0-35.0 [facility] Comment on above: Performed By: #### M G, CBC, BMP #### [facility] [address] [place] [address] NRBC% 0.1 /100{WBC} Normal 0-0.5 [facility] Comment on above: Performed By: #### M G, CBC, BMP #### [address] Comprehensive Metabolic Pane natalia 04-25-2024 Albumin [Mass/Vol] 3.6 g/dL Normal 3.5-5.7 [facility] Comment on above: Performed By: #### M G, CBC, BMP #### [address] Creatinine Clr Calc Pharmacy 20.35 Normal [facility] Comment on above: Result Comment: PERF ORMED BY: [place] [address] PATHOLOGIST FAIRGROUND OPERATOR LUIS DEE M.D. Performed By: #### M G, CBC, BMP #### [address] GFR/1.73 sq M.predicted MDRD (S/P/Bld) [Vol rate/Area] 19.217 mL/min/{1.73_m2} Normal [facility] Comment on above: Performed By: #### M G, CBC, BMP #### [address] Creatinine [Mass/volume] in Serum or PlasmaOrdered By: Misti Connolly on 04-25-2024 Creatinine [Mass/Vol] 2.46 mg/dL High 0.60-1.20 [facility] Comment on above: Performed By: #### M G, CBC, BMP #### [place] [address] [place] Erythrocyte distribution wid th [Ratio] by Automated countOrdered By: Misti Connolly on 04-25-2024 Erythrocyte distribution width (RBC) [Ratio] 14.0 % Normal 11.9-15.[address] [facility] Comment on above: Performed By: #### M G, CBC, BMP #### [place] [address] [place] Erythrocytes [#/volume] in B lood by Automated countOrdered By: Misti Connolly on 04-25-2024 RBC (Bld) [#/Vol] 3.86 10*6/uL Normal 3.60-5.00 [place] Comment on above: Performed By: #### M G, CBC, BMP #### [address] Free K+L LT Chains, Qn, Son 04-25-2024 Free Spiro Light Chains, S 48.0 mg/L High 3.3-19.4 [facility] Comment on above: Performed By: #### M G, CBC, BMP #### [address] Free Lambda Light Chains, S 30.4 mg/L High 5.7-26.3 [facility] Comment on above: Performed By: #### M G, CBC, BMP #### [address] Spiro/Lambda Ratio, S 1.58 Normal 0.26-1.65 [facility] Comment on above: Result Comment: Perf ormed at: CB - [facility] [address] [id number] Coffee Supervisor: Elpidio Delgado PhD, Phone: [phone] PERFORMED BY: [place] [address] PATHOLOGIST FAIRGROUND OPERATOR LUIS DEE M.D. Performed By: #### M G, CBC, BMP #### [address] Glucose [Mass/volume] in Ser um or PlasmaOrdered By: Misti Jeanpamela on 04-25-2024 Glucose [Mass/Vol] 242 mg/dL High 70-100 [facility] Comment on above: ADA recommended refe rence rangeRandom Glucose Reference Range is dependent on time and content of last meal. Glucose of more than 200 mg/dL in a nonstressed, ambulatory subject supports the diagnosis of Diabetes Mellitus. Result Comment: [place] om Glucose Reference Range is dependent on time and content of last meal. Glucose of more than 200 mg/dL in a nonstressed, ambulatory subject supports the diagnosis of Diabetes Mellitus. ADA recommended reference range Performed By: #### M G, CBC, BMP #### [facility] [address] [place] [id number] [facility] Hematocrit [Volume Fraction] of Blood by Automated countOrdered By: Misti Jeanpamela on 04-25-2024 Hematocrit (Bld) [Volume fraction] 37.2 % Normal 34.0-46.[address] [facility] Comment on above: Performed By: #### M G, CBC, BMP #### [facility] [address] [place] [address] [place] Hemoglobin [Mass/volume] in BloodOrdered By: Misti Mohsen on 04-25-2024 Hemoglobin (Bld) [Mass/Vol] 12.4 g/dL Normal 11.8-15.[address] [facility] Comment on above: Performed By: #### M G, CBC, BMP #### [facility] [address] [place] [id number] [place] IgA [Mass/volume] in Serum o r PlasmaOrdered By: Claire Choi on 04-25-2024 IgA [Mass/Vol] 214 mg/dL 64-[address] [facility] IgG [Mass/volume] in Serum o r PlasmaOrdered By: Claire Choi on 04-25-2024 IgG [Mass/Vol] 906 mg/dL [phone] [facility] IgM [Mass/volume] in Serum o r PlasmaOrdered By: Claire Choi on 04-25-2024 IgM [Mass/Vol] 165 mg/dL 26-[address] [facility] Comment on above: Performed at: [facility] [address] [address] [place], [place] [id number] Director: Elpidio Delgado PhD, Phone: [phone] Immunofixation,Serumon 04-25 Immunofixation, Serum Normal . [facility] Comment on above: Result Comment: No m onoclonality detected. Performed By: #### M G, CBC, BMP #### [facility] [address] [place] [address] [facility] Immunoglobulin A, Serum 222 mg/dL Normal 64-422 [facility] Comment on above: Performed By: #### M G, CBC, BMP #### [facility] [address] [place] [address] [place] Immunoglobulin G 892 mg/dL Normal 586-1602 [facility] Comment on above: Performed By: #### M G, CBC, BMP #### [facility] [address] [place] [address] [place] Immunoglobulin M, Serum 161 mg/dL Normal 26-217 [facility] Comment on above: Result Comment: Perf ormed at: [facility] [address] [id number] Coffee Supervisor: Elpidio Delgado PhD, Phone: [phone] Performed By: #### M G, CBC, BMP #### [facility] [address] [place] [id number] [facility] Immunoglobulin light chains. kappa.free [Mass/volume] in SerumOrdered By: Misti Connolly on 04-25-2024 Immunoglobulin light chains.kappa.free (S) [Mass/Vol] 48.0 mg/L High 3.3-19.[address] [facility] Immunoglobulin light chains. kappa.free/Immunoglobulin light chains.lambda.free [MassOrdered By: Misti Connolly on 04-25-2024 Immunoglobulin light chains.kappa.free/Immuno globulin light chains.lambda.free (S) [Mass ratio] 1.58 0.26-1.[address] [facility] Comment on above: Performed at: [facility] [address] [id number] Director: Elpidio Delgado PhD, Phone: [phone] Immunoglobulin light chains. lambda.free [Mass/volume] in Serum or PlasmaOrdered By: Misti Connolly on 04-25-2024 Immunoglobulin light chains.lambda.free [Mass/Vol] 30.4 mg/L High 5.7-26.[address] [facility] Immunoglobulins A/G/M, Qn, S debby 04-25-2024 Immunoglobulin A, Serum 214 mg/dL Normal 64-422 [facility] Comment on above: Performed By: #### I MM HECTOR #### [facility] , Immunoglobulin G 906 mg/dL Normal [phone] [facility] Comment on above: Performed By: #### I MM HECTOR #### [facility] , Immunoglobulin M, Serum 165 mg/dL Normal 26-217 [facility] Comment on above: Result Comment: Perf ormed at: - [facility] [place] [id number] Coffee Supervisor: Elpidio Delgado PhD, Phone: [phone] PERFORMED BY: [place] [address] PATHOLOGIST FAIRGROUND OPERATOR LUIS DEE M.D. Performed By: #### I MM HECTOR #### [facility] , Leukocytes [#/volume] correc dominick for nucleated erythrocytes in Blood by Automated counOrdered By: Misti Connolly on 04-25-2024 WBC corrected for nucl RBC Auto (Bld) [#/Vol] 7.9 10*3/uL 3.8-11.[address] [facility] Leukocytes [#/volume] in Blo od by Automated countOrdered By: Misti Connolly on 04-25-2024 WBC (Bld) [#/Vol] 7.9 10*3/uL Normal 3.8-11.6 [facility] Comment on above: Performed By: #### M G, CBC, BMP #### [address] Lymphocytes [#/volume] in Bl ood by Automated countOrdered By: Misti Connolly on 04-25-2024 Lymphocytes (Bld) [#/Vol] 2.5 10*3/uL Normal 1.00-4.[address] [facility] Comment on above: Performed By: #### M G, CBC, BMP #### [address] Lymphocytes/100 leukocytes i n Blood by Automated countOrdered By: Misti Mohsen on 04-25-2024 Lymphocytes/100 WBC (Bld) 31.0 % Normal . [facility] Comment on above: Performed By: #### M G, CBC, BMP #### [address] MCH [Entitic mass] by Automa dominick countOrdered By: Misti Mohsen on 04-25-2024 MCH (RBC) [Entitic mass] 32.1 pg Normal 24.7-34.[address] [facility] Comment on above: Performed By: #### M G, CBC, BMP #### [address] MCHC Auto (RBC) [Mass/Vol]Or dered By: Misti Mohsen on 04-25-2024 MCHC (RBC) [Mass/Vol] 33.3 g/dL 32.0-35.0 [facility] MCV [Entitic volume] by Auto mated countOrdered By: Misti Mohsen on 04-25-2024 MCV (RBC) [Entitic vol] 96.4 fL Normal 80-100 [facility] Comment on above: Performed By: #### M G, CBC, BMP #### [place] [address] [place] Neutrophils [#/volume] in Bl ood by Automated countOrdered By: Misti Mohsen on 04-25-2024 Neutrophils (Bld) [#/Vol] 4.8 10*3/uL Normal 1.8-7.[address] [facility] Comment on above: Performed By: #### M G, CBC, BMP #### [address] No Panel InformationOrdered By: Misti Connolly on 04-25-2024 Estimated GFR (CKD-EPI) 19.217 mL/Min [facility] Creatinine Clearance (Chem 20.[address] [facility] Protein Electrophoresis M-Krystian Not observed g/dL Not Observed [facility] Protein Electrophoresis Note See comment . [facility] Comment on above: Protein electrophore sis scan will follow via computer,mail, or gas engine mechanic delivery.Performed at: [facility] [id number] Director: Elpidio Delgado PhD, Phone: [phone] Serum Immunofixation See comment . [facility] Comment on above: No monoclonality det ected. Nucleated erythrocytes [Pres ence] in Blood by Automated countOrdered By: Misti Connolly on 04-25-2024 Nucleated RBC Auto Ql (Bld) 0.1 /100{WBC} 0-0.[address] [facility] Platelet mean volume [Entiti c volume] in Blood by Automated countOrdered By: Misti Connolly on 04-25-2024 Platelet mean volume (Bld) [Entitic vol] 10.2 fL Normal 6.3-10.[address] [facility] Comment on above: Performed By: #### M G, CBC, BMP #### [facility] [address] [place] [address] [place] Platelets [#/volume] in Bloo d by Automated countOrdered By: Misti Connolly on 04-25-2024 Platelets (Bld) [#/Vol] 161 10*3/uL Normal 150-[address] [facility] Comment on above: Performed By: #### M G, CBC, BMP #### [facility] [address] [place] [id number] [place] Potassium [Moles/volume] in Serum or PlasmaOrdered By: Misti Connolly on 04-25-2024 Potassium [Moles/Vol] 4.6 mmol/L Normal 3.5-5.1 [facility] Comment on above: Performed By: #### M G, CBC, BMP #### [facility] [address] [place] [id number] [place] Protein Electrophoresis, Ser umon 04-25-2024 Khywv-1-Qlerdlug 0.1 g/dL Normal 0.0-0.4 [facility] Comment on above: Performed By: #### M G, CBC, BMP #### [address] Qapcs-1-Zmfkhfdv 0.9 g/dL Normal 0.4-1.0 [facility] Comment on above: Performed By: #### M G, CBC, BMP #### [facility] [address] [place] [address] Beta Globulin 0.8 g/dL Normal 0.7-1.3 [facility] Comment on above: Performed By: #### M G, CBC, BMP #### [facility] [address] [place] [address] Gamma Globulin 0.9 g/dL Normal 0.4-1.8 [facility] Comment on above: Performed By: #### M G, CBC, BMP #### [address] M-Krystian Not Observed Normal Not Observed [facility] Comment on above: Performed By: #### M G, CBC, BMP #### [address] SPE-Note Normal . [facility] Comment on above: Result Comment: Prot ein electrophoresis scan will follow via computer, mail, or gas engine mechanic delivery. Performed at: - [facility] [id number] Coffee Supervisor: Elpidio Delgado PhD, Phone: [phone] Performed By: #### M G, CBC, BMP #### [place] [id number] [place] Protein [Mass/volume] in Ser um or PlasmaOrdered By: Misti Connolly on 04-25-2024 Protein [Mass/Vol] 6.3 g/dL Low 6.4-8.9 [facility] Comment on above: Performed By: #### M G, CBC, BMP #### [address] Protein [Mass/Vol] 6.1 g/dL Normal 6.0-8.5 [facility] Comment on above: Performed By: #### M G, CBC, BMP #### [facility] [address] [place] [address] Serum globulin measurement b y calculation (mass/volume)Ordered By: Misti Mohsen on 04-25-2024 Globulin (S) [Mass/Vol] 2.7 g/dL Normal 2.2-3.9 [facility] Comment on above: Performed By: #### M G, CBC, BMP #### [address] Serum or plasma albumin/glob ulin mass ratioOrdered By: Misti Connolly on 04-25-2024 Albumin/Globulin [Mass ratio] 1.3 {ratio} Normal 0.7-1.[address] [facility] Comment on above: Performed By: #### M G, CBC, BMP #### [address] Serum or plasma alpha 1 glob ulin measurement by electrophoresis (mass/volume)Ordered By: Misti Connolly on 04-25-2024 Alpha 1 globulin Elph [Mass/Vol] 0.1 g/dL 0.0-0.[address] [facility] Serum or plasma alpha 2 glob ulin measurement by electrophoresis (mass/volume)Ordered By: Misti Connolly on 04-25-2024 Alpha 2 globulin Elph [Mass/Vol] 0.9 g/dL 0.4-1.[address] [facility] Serum or plasma anion gap de terminationOrdered By: Misti Connolly on 04-25-2024 Anion gap [Moles/Vol] 12.1 mmol/L Normal 6.0-15.0 [facility] Comment on above: Performed By: #### M G, CBC, BMP #### [facility] [address] [place] [address] Serum or plasma beta globuli n measurement by electrophoresis (mass/volume)Ordered By: Misti Connolly on 04-25-2024 Beta globulin Elph [Mass/Vol] 0.8 g/dL 0.7-1.[address] [facility] Serum or plasma gamma globul in measurement by electrophoresis (mass/volume)Ordered By: Misti Jeanpamela on 04-25-2024 Gamma globulin Elph [Mass/Vol] 0.9 g/dL 0.4-1.[address] [facility] Sodium [Moles/volume] in Ser um or PlasmaOrdered By: Misti Jeanpamela on 04-25-2024 Sodium [Moles/Vol] 136 mmol/L Normal 136-145 [facility] Comment on above: Performed By: #### M G, CBC, BMP #### [facility] [address] Urea nitrogen [Mass/volume] in Serum or PlasmaOrdered By: Misti Mohsen on 04-25-2024 Urea nitrogen [Mass/Vol] 31 mg/dL High 7-[address] [facility] Comment on above: Performed By: #### M G, CBC, BMP #### [facility] [address] Laboratory - Chemistry and C hemistry - challengeon 04-12-2024 Bilirubin Ql (U) Negative [place] Glucose (U) [Mass/Vol] Negative [facility] Ketones Ql (U) Negative [facility] pH (U) 6.0 [pH] [facility] Specific gravity (U) [Rel density] 1.[address] [facility] Urobilinogen (U) [Mass/Vol] 0 mg/dL [facility] Laboratory - Specimen inform ationon 04-12-2024 Appearance (U) cloudy [facility] Color (U) yellow [facility] Laboratory - Urinalysison Leukocyte esterase Test strip Ql (U) 70+ [facility] Nitrite Ql (U) Negative [facility] Protein Ql (U) [address] [facility] No Panel Informationon 04-12 Urine Occult Blood Negative [facility] Urine Cultureon 04-12-2024 Bacteria identified Cx Nom (U) 20,000 colonies/ml mixed bacterial skin contaminants 2 Days PERFORMED BY: [place] [address] PATHOLOGIST FAIRGROUND OPERATOR LUIS DEE M.D. Normal [facility] Comment on above: Performed By: #### C UU #### [facility] [address] Urine culture routineOrdered By: Curt Clark on 04-12-2024 Bacteria identified Cx Nom (U) [address] [facility] Glucose mean value [Mass/vol ume] in Blood Estimated from glycated hemoglobinon 02-15-2024 Average glucose Estimated from glycated hemoglobin (Bld) [Mass/Vol] 166 mg/dL [facility] Laboratory - Hematology and Cell countson 02-15-2024 HbA1c (Bld) [Mass fraction] 7.4 % 4.5-6.[address] [facility] Comment on above: ADA RECOMMENDED LIMI T 4.0 - 6.0ADA THERAPEUTIC TARGET < 7.0ACTION SUGGESTED> 7.0 Alanine aminotransferase [En zymatic activity/volume] in Serum or PlasmaOrdered By: Claire Choi on 01-17-2024 ALT [Catalytic activity/Vol] 8 U/L Normal 7-[address] [facility] Comment on above: Performed By: #### V BG #### Point of Care testing , Albumin [Mass/volume] in Ser um or PlasmaOrdered By: Claire Choi on 01-17-2024 Albumin [Mass/Vol] 3.4 g/dL Normal 2.9-4.4 [facility] Comment on above: Performed By: #### V BG #### Point of Care testing , Albumin [Mass/volume] in Ser um or Plasma by Bromocresol green (BCG) dye binding methoOrdered By: Claire Choi on 01-17-2024 Albumin BCG dye [Mass/Vol] 3.8 g/dL 3.5-5.[address] [facility] Alkaline phosphatase [Enzyma tic activity/volume] in Serum or PlasmaOrdered By: Claire Choi on 01-17-2024 ALP [Catalytic activity/Vol] 103 U/L Normal 34-[address] [facility] Comment on above: Performed By: #### V BG #### Point of Care testing , Aspartate aminotransferase [ Enzymatic activity/volume] in Serum or PlasmaOrdered By: Claire Choi on 01-17-2024 AST [Catalytic activity/Vol] 12 U/L Low 13-[address] [facility] Comment on above: Performed By: #### V BG #### Point of Care testing , Automated basophil %Ordered By: Claire Choi on 01-17-2024 Basophils/100 WBC (Bld) 0.6 % Normal . [facility] Comment on above: Performed By: #### V BG #### Point of Care testing , Automated basophil countOrde red By: Claire Chio on 01-17-2024 Basophils (Bld) [#/Vol] 0.1 10*3/uL Normal 0.0-0.[address] [facility] Comment on above: Result Comment: PERF ORMED BY: [facility] [address] [place] [address] PATHOLOGIST FAIRGROUND OPERATOR LUIS DEE M.D. Performed By: #### V BG #### Point of Care testing , Automated blood monocyte cou ntOrdered By: Claire Choi on 01-17-2024 Monocytes (Bld) [#/Vol] 0.6 10*3/uL Normal 0.0-0.[address] [facility] Comment on above: Performed By: #### V BG #### Point of Care testing , Automated eosinophil %Ordere d By: Claire Choi on 01-17-2024 Eosinophils/100 WBC (Bld) 2.0 % Normal . [facility] Comment on above: Performed By: #### V BG #### Point of Care testing , Automated eosinophil countOr dered By: Claire Choi on 01-17-2024 Eosinophils (Bld) [#/Vol] 0.2 10*3/uL Normal 0.0-0.[address] [facility] Comment on above: Performed By: #### V BG #### Point of Care testing , Automated monocyte %Ordered By: Claire Choi on 01-17-2024 Monocytes/100 WBC (Bld) 7.4 % Normal . [facility] Comment on above: Performed By: #### V BG #### Point of Care testing , Automated neutrophil %Ordere d By: Claire Choi on 01-17-2024 Neutrophils/100 WBC (Bld) 64.6 % Normal . [facility] Comment on above: Performed By: #### V BG #### Point of Care testing , Bilirubin.total [Mass/volume ] in Serum or PlasmaOrdered By: Claire Choi on 01-17-2024 Bilirubin [Mass/Vol] 0.5 mg/dL Normal 0.3-1.0 [facility] Comment on above: Performed By: #### V BG #### Point of Care testing , Calcium [Mass/volume] in Ser um or PlasmaOrdered By: Claire Choi on 01-17-2024 Calcium [Mass/Vol] 8.6 mg/dL Normal 8.6-10.3 [facility] Comment on above: Performed By: #### V BG #### Point of Care testing , Carbon dioxide, total [Moles /volume] in Serum or PlasmaOrdered By: Claire Choi on 01-17-2024 CO2 [Moles/Vol] 20.0 mmol/L Low 21.0-31.0 [place] Comment on above: Performed By: #### V BG #### Point of Care testing , Chloride [Moles/volume] in S amanda or PlasmaOrdered By: Claire Choi on 01-17-2024 Chloride [Moles/Vol] 112 mmol/L High 98-107 [facility] Comment on above: Performed By: #### V BG #### Point of Care testing , Complete Blood Count Auto Di ffon 01-17-2024 Mean Corpuscular HGB Conc 33.7 g/dL Normal 32.0-35.0 [facility] Comment on above: Performed By: #### V BG #### Point of Care testing , NRBC% 0.0 /100{WBC} Normal 0-0.5 [facility] Comment on above: Performed By: #### V BG #### Point of Care testing , Comprehensive Metabolic Pane natalia 01-17-2024 Albumin [Mass/Vol] 3.8 g/dL Normal 3.5-5.7 [facility] Comment on above: Performed By: #### V BG #### Point of Care testing , Creatinine Clr Calc Pharmacy 21.10 Normal [facility] Comment on above: Result Comment: PERF ORMED BY: [facility] [address] PATHOLOGIST FAIRGROUND OPERATOR LUIS DEE M.D. Performed By: #### V BG #### Point of Care testing , GFR/1.73 sq M.predicted MDRD (S/P/Bld) [Vol rate/Area] 20.724 mL/min/{1.73_m2} Normal [facility] Comment on above: Performed By: #### V BG #### Point of Care testing , Creatinine [Mass/volume] in Serum or PlasmaOrdered By: Claire Choi on 01-17-2024 Creatinine [Mass/Vol] 2.31 mg/dL High 0.60-1.20 [facility] Comment on above: Performed By: #### V BG #### Point of Care testing , Erythrocyte distribution wid th [Ratio] by Automated countOrdered By: Claire Choi on 01-17-2024 Erythrocyte distribution width (RBC) [Ratio] 13.3 % Normal 11.9-15.[address] [facility] Comment on above: Performed By: #### V BG #### Point of Care testing , Erythrocytes [#/volume] in B lood by Automated countOrdered By: Claire Choi on 01-17-2024 RBC (Bld) [#/Vol] 3.96 10*6/uL Normal 3.60-5.00 [place] Comment on above: Performed By: #### V BG #### Point of Care testing , Free K+L LT Chains, Qn, Son 01-17-2024 Free Spiro Light Chains, S 39.5 mg/L High 3.3-19.4 [facility] Comment on above: Performed By: #### V BG #### Point of Care testing , Free Lambda Light Chains, S 22.8 mg/L Normal 5.7-26.3 [facility] Comment on above: Performed By: #### V BG #### Point of Care testing , Spiro/Lambda Ratio, S 1.73 High 0.26-1.65 [facility] Comment on above: Result Comment: Perf ormed at: CB - [facility] [address] [id number] Coffee Supervisor: Elpidio Delgado PhD, Phone: [phone] PERFORMED BY: [facility] [place] [address] PATHOLOGIST FAIRGROUND OPERATOR LUIS DEE M.D. Performed By: #### V BG #### Point of Care testing , Glucose [Mass/volume] in Ser um or PlasmaOrdered By: Claire Choi on 01-17-2024 Glucose [Mass/Vol] 150 mg/dL High 70-100 [facility] Comment on above: ADA recommended refe rence rangeRandom Glucose Reference Range is dependent on time and content of last meal. Glucose of more than 200 mg/dL in a nonstressed, ambulatory subject supports the diagnosis of Diabetes Mellitus. Result Comment: [place] om Glucose Reference Range is dependent on [...] (Bld) [Volume fraction] 37.6 % Normal 34.0-46.[address] [facility] Comment on above: Performed By: #### V BG #### Point of Care testing , Hemoglobin [Mass/volume] in BloodOrdered By: Claire Choi on 01-17-2024 Hemoglobin (Bld) [Mass/Vol] 12.7 g/dL Normal 11.8-15.[address] [facility] Comment on above: Performed By: #### V BG #### Point of Care testing , IgA [Mass/volume] in Serum o r PlasmaOrdered By: Claire Choi on 01-17-2024 IgA [Mass/Vol] 214 mg/dL 64-[address] [facility] IgG [Mass/volume] in Serum o r PlasmaOrdered By: Claire Choi on 01-17-2024 IgG [Mass/Vol] 896 mg/dL [phone] [facility] IgM [Mass/volume] in Serum o r PlasmaOrdered By: Claire Choi on 01-17-2024 IgM [Mass/Vol] 187 mg/dL 26-[address] [facility] Comment on above: Performed at: [facility] [address] [id number] Director: Elpidio Delgado PhD, Phone: [phone] Immunofixation,Serumon 01-16 Immunofixation, Serum Normal . [facility] Comment on above: Result Comment: No m onoclonality detected. Performed By: #### V BG #### Point of Care testing , Immunoglobulin A, Serum 214 mg/dL Normal 64-422 [facility] Comment on above: Performed By: #### V BG #### Point of Care testing , Immunoglobulin G 896 mg/dL Normal [phone] [facility] Comment on above: Performed By: #### V BG #### Point of Care testing , Immunoglobulin M, Serum 187 mg/dL Normal 26-217 [facility] Comment on above: Result Comment: Perf ormed at: [facility] [place] [id number] [place], [place] [id number] Coffee Supervisor: Elpidio Delgado PhD, Phone: [phone] Performed By: #### V BG #### Point of Care testing , Immunoglobulin light chains. kappa.free [Mass/volume] in SerumOrdered By: Claire Choi on 01-17-2024 Immunoglobulin light chains.kappa.free (S) [Mass/Vol] 39.5 mg/L 3.3-19.[address] [facility] Immunoglobulin light chains. kappa.free/Immunoglobulin light chains.lambda.free [MassOrdered By: Claire Choi on 01-17-2024 Immunoglobulin light chains.kappa.free/Immuno globulin light chains.lambda.free (S) [Mass ratio] 1.73 0.26-1.[address] [facility] Comment on above: Performed at: [facility] [address], [place] [id number] Director: Elpidio Delgado PhD, Phone: [phone] Immunoglobulin light chains. lambda.free [Mass/volume] in Serum or PlasmaOrdered By: Claire Choi on 01-17-2024 Immunoglobulin light chains.lambda.free [Mass/Vol] 22.8 mg/L 5.7-26.[address] [facility] Leukocytes [#/volume] correc dominick for nucleated erythrocytes in Blood by Automated counOrdered By: Claire Choi on 01-17-2024 WBC corrected for nucl RBC Auto (Bld) [#/Vol] 8.5 10*3/uL 3.8-11.[address] [facility] Leukocytes [#/volume] in Blo od by Automated countOrdered By: Claire Choi on 01-17-2024 WBC (Bld) [#/Vol] 8.5 10*3/uL Normal 3.8-11.6 [facility] Comment on above: Performed By: #### V BG #### Point of Care testing , Lymphocytes [#/volume] in Bl ood by Automated countOrdered By: Claire Choi on 01-17-2024 Lymphocytes (Bld) [#/Vol] 2.2 10*3/uL Normal 1.00-4.[address] [facility] Comment on above: Performed By: #### V BG #### Point of Care testing , Lymphocytes/100 leukocytes i n Blood by Automated countOrdered By: Claire Choi on 01-17-2024 Lymphocytes/100 WBC (Bld) 25.4 % Normal . [facility] Comment on above: Performed By: #### V BG #### Point of Care testing , MCH [Entitic mass] by Automa dominick countOrdered By: Claire Choi on 01-17-2024 MCH (RBC) [Entitic mass] 31.9 pg Normal 24.7-34.[address] [facility] Comment on above: Performed By: #### V BG #### Point of Care testing , MCHC Auto (RBC) [Mass/Vol]Or dered By: Claire Choi on 01-17-2024 MCHC (RBC) [Mass/Vol] 33.7 g/dL 32.0-35.0 [facility] MCV [Entitic volume] by Auto mated countOrdered By: Claire Choi on 01-17-2024 MCV (RBC) [Entitic vol] 94.8 fL Normal 80-100 [facility] Comment on above: Performed By: #### V BG #### Point of Care testing , Neutrophils [#/volume] in Bl ood by Automated countOrdered By: Claire Choi on 01-17-2024 Neutrophils (Bld) [#/Vol] 5.5 10*3/uL Normal 1.8-7.[address] [facility] Comment on above: Performed By: #### V BG #### Point of Care testing , No Panel InformationOrdered By: Claire Choi on 01-17-2024 Estimated GFR (CKD-EPI) 20.724 mL/Min [facility] Creatinine Clearance (Chem 21.[address] [facility] Protein Electrophoresis M-Krystian Comment: g/dL Not Observed [facility] Comment on above: SPE shows a beta hector ma band of restricted mobility due tofibrinogen in the plasma sample submitted. Protein Electrophoresis Note See comment . [facility] Comment on above: Protein electrophore sis scan will follow via computer,mail, or gas engine mechanic delivery.Performed at: [facility] [address] [id number] Director: Elpidio Deglado PhD, Phone: [phone] Serum Immunofixation See comment . [facility] Comment on above: No monoclonality det ected. Nucleated erythrocytes [Pres ence] in Blood by Automated countOrdered By: Claire Choi on 01-17-2024 Nucleated RBC Auto Ql (Bld) 0.0 /100{WBC} 0-0.[address] [facility] Platelet mean volume [Entiti c volume] in Blood by Automated countOrdered By: Claire Choi on 01-17-2024 Platelet mean volume (Bld) [Entitic vol] 10.1 fL Normal 6.3-10.[address] [facility] Comment on above: Performed By: #### V BG #### Point of Care testing , Platelets [#/volume] in Bloo d by Automated countOrdered By: Claire Choi on 01-17-2024 Platelets (Bld) [#/Vol] 201 10*3/uL Normal 150-[address] [facility] Comment on above: Performed By: #### V BG #### Point of Care testing , Potassium [Moles/volume] in Serum or PlasmaOrdered By: Claire Choi on 01-17-2024 Potassium [Moles/Vol] 4.6 mmol/L Normal 3.5-5.1 [facility] Comment on above: Performed By: #### V BG #### Point of Care testing , Protein Electrophoresis, Ser umon 01-17-2024 Iavbx-8-Dqnatfmi 0.1 g/dL Normal 0.0-0.4 [facility] Comment on above: Performed By: #### V BG #### Point of Care testing , Bvphj-0-Whdpqodp 0.8 g/dL Normal 0.4-1.0 [facility] Comment on above: Performed By: #### V BG #### Point of Care testing , Beta Globulin 0.9 g/dL Normal 0.7-1.3 [facility] Comment on above: Performed By: #### V BG #### Point of Care testing , Gamma Globulin 1.2 g/dL Normal 0.4-1.8 [facility] Comment on above: Performed By: #### V BG #### Point of Care testing , M-Krystian Comment: Normal Not Observed [facility] Comment on above: Result Comment: SPE shows a beta gamma band of restricted mobility due to fibrinogen in the plasma sample submitted. Performed By: #### V BG #### Point of Care testing , SPE-Note Normal . [facility] Comment on above: Result Comment: Prot ein electrophoresis scan will follow via computer, mail, or gas engine mechanic delivery. Performed at: - [facility] [id number] Coffee Supervisor: Elpidio Delgado PhD, Phone: [phone] Performed By: #### V BG #### Point of Care testing , Protein [Mass/volume] in Ser um or PlasmaOrdered By: Claire Choi on 01-17-2024 Protein [Mass/Vol] 6.6 g/dL Normal 6.4-8.9 [facility] Comment on above: Performed By: #### V BG #### Point of Care testing , Protein [Mass/Vol] 6.5 g/dL Normal 6.0-8.5 [facility] Comment on above: Performed By: #### V BG #### Point of Care testing , Serum globulin measurement ( mass/volume)Ordered By: Claire Choi on 01-17-2024 Globulin (S) [Mass/Vol] 3.1 g/dL Normal 2.2-3.9 [facility] Comment on above: Performed By: #### V BG #### Point of Care testing , Serum globulin measurement b y calculation (mass/volume)Ordered By: Calire Choi on 01-17-2024 Globulin (S) [Mass/Vol] 2.8 g/dL Normal [facility] Comment on above: Performed By: #### V BG #### Point of Care testing , Serum or plasma albumin/glob ulin mass ratioOrdered By: Claire Choi on 01-17-2024 Albumin/Globulin [Mass ratio] 1.4 {ratio} Normal [facility] Comment on above: Performed By: #### V BG #### Point of Care testing , Albumin/Globulin [Mass ratio] 1.1 {ratio} Normal 0.7-1.[address] [facility] Comment on above: Performed By: #### V BG #### Point of Care testing , Serum or plasma alpha 1 glob ulin measurement by electrophoresis (mass/volume)Ordered By: Claire Choi on 01-17-2024 Alpha 1 globulin Elph [Mass/Vol] 0.1 g/dL 0.0-0.[address] [facility] Serum or plasma alpha 2 glob ulin measurement by electrophoresis (mass/volume)Ordered By: Claire Choi on 01-17-2024 Alpha 2 globulin Elph [Mass/Vol] 0.8 g/dL 0.4-1.[address] [facility] Serum or plasma anion gap de terminationOrdered By: Claire Choi on 01-17-2024 Anion gap [Moles/Vol] 10.6 mmol/L Normal 6.0-15.0 [facility] Comment on above: Performed By: #### V BG #### Point of Care testing , Serum or plasma beta globuli n measurement by electrophoresis (mass/volume)Ordered By: Claire Choi on 01-17-2024 Beta globulin Elph [Mass/Vol] 0.9 g/dL 0.7-1.[address] [facility] Serum or plasma gamma globul in measurement by electrophoresis (mass/volume)Ordered By: Claire Choi on 01-17-2024 Gamma globulin Elph [Mass/Vol] 1.2 g/dL 0.4-1.[address] [facility] Sodium [Moles/volume] in Ser um or PlasmaOrdered By: Claire Choi on 01-17-2024 Sodium [Moles/Vol] 138 mmol/L Normal 136-145 [facility] Comment on above: Performed By: #### V BG #### Point of Care testing , Urea nitrogen [Mass/volume] in Serum or PlasmaOrdered By: Claire Choi on 01-17-2024 Urea nitrogen [Mass/Vol] 41 mg/dL High 7-[address] [facility] Comment on above: Performed By: #### [...] VELAZQUEZ, Tyree Rivers Where: [facility] Patient Educationon 01-09-20 Patient Education Nephrology Dietary [...] ? 8 oz (237 mL) of milk, eaacqzo-kyzmovmgwcub-soxi y milk, and calcium-fortifiedfruit juice. Calcium-fortified means [...] Spinach (cooked), rhubarb, beets, sweet potatoes, and Cambodian chard. ? Peanuts. ? Potato chips, turkish fries, and baked potatoes with skin on. ? Nuts and nut products. ? Chocolate. ? If you regularly take a diuretic medicine, make sure to eat at least 1 or 2 servings of fruits or vegetables that are high in potassium each day. These include: ? Avocado. ? Banana. ? [place], prune, carrot, or tomato juice. ? [...] fish oil, or vitamin B6. ? Take nezk-nup-llsgvdc and prescription medicines only as told by your health care provider. These include supplements. What foods sh (more content not included)... Normal [facility] Urology Office/Clinic Noteon 01-09-2024 Urology Office/Clinic [...] When Contact Information XAVIER VELAZQUEZ, Tyree Rivers, [facility] [address], [place] [id number] Additional Instructions: 1 yr w/ [employer]AY[employer] Patient [...] Rash) pr (more content not included)... Normal [facility] Comment on above: Result Comment: Elec tronically Signed By: Tyree PARK MD\.br\Date and Time Signed: 01/09/24 09:42 EST\.br\Electronically Co-Signed By: Tanya Schwartz\.br\Date and Time Co-Signed: 01/09/24 09:41 EST RAD - MISCon 01-06-2024 RAD - [facility] [id number] Normal [facility] Automated epithelial cells c ount in urine sediment (number/area)on 12-27-2023 Epithelial cells Auto (Urine sed) [#/Area] RARE #/LPF NONE/RARE [facility] Automated leukocytes count i n urine sediment (number/area)on 12-27-2023 WBC Auto (Urine sed) [#/Area] 0-2 #/HPF 0-[address] [facility] Automated urine specific gra vity by refractometryon 12-27-2023 Specific gravity Refractometry automated (U) [Rel density] 1.010 1.005-1.[address] [facility] Bilirubin Auto test strip (U ) [Mass/Vol]on 12-27-2023 Bilirubin (U) [Mass/Vol] Negative NEGATIVE [facility] Casts typing in urine sedime nt by light microscopyon 12-27-2023 Casts LM Nom (Urine sed) NONE SEEN #/LPF NONE S EEN [facility] Color Auto (U)on 12-27-2023 Color (U) LT. YELLOW YELLOW [facility] Erythrocyte distribution wid th Auto (RBC) [Ratio]on 12-27-2023 Erythrocyte distribution width (RBC) [Ratio] 12.5 % 11.0-15.[address] [facility] Estimated glomerular filtrat ion rate (GFR) non- Americanon 12-27-2023 GFR/1.73 sq M.predicted among non-blacks MDRD (S/P/Bld) [Vol rate/Area] 18 mL/min/{1.73_m2} >=[address] [facility] Hematocrit Auto (Bld) [Volum e fraction]on 12-27-2023 Hematocrit (Bld) [Volume fraction] 40.2 % 36.0-48.[address] [facility] Hemoglobin [Mass/volume] in Bloodon 12-27-2023 Hemoglobin (Bld) [Mass/Vol] 12.9 g/dL 12.0-16.[address] [facility] Ketones Auto test strip (U) [Mass/Vol]on 12-27-2023 Ketones (U) [Mass/Vol] Negative NEGATIVE [facility] Laboratory - Chemistry and C hemistry - challengeon 12-27-2023 Albumin [Mass/Vol] 3.2 g/dL 3.4-5.0 [facility] Calcium [Mass/Vol] 8.4 mg/dL 8.5-10.1 [facility] Chloride [Moles/Vol] 108 mmol/L 98-107 [facility] CO2 [Moles/Vol] 24.3 mmol/L 21.0-32.0 [place] Creatinine [Mass/Vol] 2.57 mg/dL 0.55-1.02 [facility] GFR/1.73 sq M.predicted MDRD (S/P/Bld) [Vol rate/Area] 22 mL/min/{1.73_m2} >=[address] [facility] Glucose [Mass/Vol] 88 mg/dL 74-106 [facility] Magnesium [Mass/Vol] 2.1 mg/dL 1.8-2.4 [facility] Potassium [Moles/Vol] 4.4 mmol/L 3.5-5.1 [facility] Sodium [Moles/Vol] 141 mmol/L 136-145 [facility] Urate [Mass/Vol] 5.9 mg/dL 2.6-6.0 [place] Urea nitrogen [Mass/Vol] 32.0 mg/dL 7.0-18.[address] [facility] Urea nitrogen/Creatinine [Mass ratio] 12.5 mg/mg [facility] Laboratory - Urinalysison Protein (U) [Mass/Vol] 27.1 mg/dL <=11.9 [facility] Leukocytes [#/volume] correc dominick for nucleated erythrocytes in Blood by Automated counon 12-27-2023 WBC corrected for nucl RBC Auto (Bld) [#/Vol] 8.3 10 3/uL 4.0-11.[address] [facility] MCH Auto (RBC) [Entitic mass ]on 12-27-2023 MCH (RBC) [Entitic mass] 31.5 pg 26.7-34.[address] [facility] MCHC Auto (RBC) [Mass/Vol]on 12-27-2023 MCHC (RBC) [Mass/Vol] 32.1 g/dL 29.9-35.2 [facility] MCV Auto (RBC) [Entitic vol] on 12-27-2023 MCV (RBC) [Entitic vol] 98.3 fL 81.0-99.0 [facility] Mucus LM Ql (Urine sed)on Mucus Ql (Urine sed) NONE SEEN NONE SEEN [facility] No Panel Informationon 12-27 25-Hydroxy Vitamin D Total 42.6 ng/mL [facility] Comment on above: <20 ng/mL Vit D defi cient20-<30 ng/mL Vit D edvhwvajlxqi13-483 ng/mL Vit D sufficient>100 ng/mL Potential Toxicity Parathyroid Hormone (Intact) 78 pg/mL 15-[address] [facility] Comment on above: Performed at: - [address] [id number] Director: Elpidio Delgado PhD, Phone: [phone] Phosphorus Level 4.2 mg/dL 2.6-4.7 [place] Urine Random Creatinine 59.98 mg/dL 20.0 0-300. [address] [facility] Platelet mean volume Auto (B ld) [Entitic vol]on 12-27-2023 Platelet mean volume (Bld) [Entitic vol] 11.3 fL 9.5-13.[address] [facility] Platelets Auto (Bld) [#/Vol] on 12-27-2023 Platelets (Bld) [#/Vol] 195 10 3/uL 150-[address] [facility] Protein Auto test strip (U) [Mass/Vol]on 12-27-2023 Protein (U) [Mass/Vol] Negative NEG/TRACE [facility] RBC Auto (Bld) [#/Vol]on RBC (Bld) [#/Vol] 4.09 10 6/uL 4.20-5.40 [place] Serum or plasma anion gap de terminationon 12-27-2023 Anion gap [Moles/Vol] 13.1 mmol/L [facility] Specific gravity Auto test s trip (U) [Rel density]on 12-27-2023 Specific gravity (U) [Rel density] CLEAR CLEAR [facility] Urine bacteria detection by automated methodon 12-27-2023 Bacteria Auto Ql (U) TRACE #/HPF NONE SEEN [facility] Urine glucose measurement by test strip (mass/volume)on 12-27-2023 Glucose Test strip (U) [Mass/Vol] Negative NEGATIVE [facility] Urine hemoglobin detection b y automated test stripon 12-27-2023 Hemoglobin Auto test strip Ql (U) Negative NEGATIVE [facility] Urine nitrite detection by a utomated test stripon 12-27-2023 Nitrite Auto test strip Ql (U) Negative NEGATIVE [facility] Urine protein/creatinine rat ioon 12-27-2023 Protein/Creatinine (U) [Ratio] 0.[address] [facility] Urine sediment crystal ident ification by light microscopyon 12-27-2023 Crystals LM Nom (Urine sed) None Seen #/HPF None Seen [facility] Urine sediment leukocyte cou nt by microscopy (number/high power field)on 12-27-2023 WBC LM.HPF (Urine sed) [#/Area] 0-2 #/HPF NONE SEEN [facility] Urobilinogen Auto test strip (U) [Mass/Vol]on 12-27-2023 Urobilinogen Qn (U) 0.2 {Marley'U}/dL 0.2-1.[address] [facility] pH Auto test strip (U)on pH (U) 6.5 [pH] 5.0-9.[address] [facility] US Heart TransthoracicOrdere d By: Russel Tolbert on 11-03-2023 Aortic Valve Area by Continuity of Peak Velocity 1.84 [facility] Work Phone: Aortic Valve Area by Continuity of VTI 1.69 [facility] Work Phone: AV mn grad 4.0 [facility] Work Phone: [phone] AV pk grad 8.8 [facility] Work Phone: AV pk nisha 1.48 [facility] Work Phone: LV A4C EF 65.5 [facility] Work Phone: [phone] LVIDd 4.10 [facility] Work Phone: [phone] LVOT diam 2.00 [facility] Work Phone: [phone] MV avg E/e' ratio 17.40 [facility] Work Phone: MV E/A ratio 1.11 [facility] Work Phone: RVSP 25.3 [facility] Work Phone: [facility] Work Phone: US Heart Transthoracicon [facility] [address], [address], [place] [address] TRANSTHORACIC ECHOCARDIOGRAM REPORT Patient Name: HAILEE TRIVEDI Reading Physician: [id number] Tolbert MD Study Date: 11/02/2023 Ordering Provider: [id number] ELICIA RHODES MRN/PID: [id number] Fellow: Nurse: Date of /Age: 6 1940 / 83 years [employer] Supervisor: Allyson Dobson RDCS, RVT Gender: F Additional Staff: Height: 167.64 cm Admit Date: Weight: 88.00 kg Admission Status: BSA: 1.97 m2 Department Location: [facility] Blood Pressure: 140 /74 mmHg Study Type: TRANSTHORACIC ECHO (TTE) COMPLETE Diagnosis/ICD: Nonrheumatic aortic (valve) insufficiency-I35.1; 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 ÁNGELO Russel Tolbert MD - 11/03/[address], [address], [place] [address] TRANSTHORACIC ECHOCARDIOGRAM REPORT Patient Name: HAILEE TRIVEDI Reading Physician: [id number] Russel Tolbert MD Study Date: 11/02/2023 Ordering Provider: [id number] ELICIA RHODES MRN/PID: [id number] Fellow: Nurse: Date of /Age: 6 1940 / 83 years [employer] Supervisor: Allyson Dobson [facility], T Gender: F Additional Staff: Height: 167.64 cm Admit Date: Weight: 88.00 kg Admission Status: BSA: 1.97 m2 Department Location: [facility] Blood Pressure: 140 /74 mmHg Study Type: TRANSTHORACIC ECHO (TTE) COMPLETE Diagnosis/ICD: Nonrheumatic aortic (valve) insufficiency-I35.1; 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; Pulmonary hypertension, unspecified-I27.20 Indication: Atrial Fibrillation, HTN, Hyperlipidemia, 2/6 Diastolic Murmur, CKD-Stage III-IV, Multiple Myeloma-in Remission, Cerebellar Infarct, Obesity CPT Codes: Echo Complete w Full Doppler-[id number] Study Detail: The following Echo studies were [...] 30mmHg) PULMONIC VALVE: Normal Ranges: PV Max Nihsa: 0.7 m/s (0.6-0.9m/s) PV Max P.0 mmHg PIEDV: 2.22 m/s PADP: 22.7 mmHg [id number] Russel Tolbert MD Electronically signed on 11/03/2023 at 11:22:05 AM Final [facility] Work Phone: TRANSTHORACIC ECHO (TTE) [facility] 11-02-2023 TRANSTHORACIC ECHO (TTE) [address], [address] [address] TRANSTHORACIC ECHOCARDIOGRAM REPORT Patient Name: HAILEE TRIVEDI Reading Physician: [id number] Russel Tolbert MD Study Date: 11/02/2023 Ordering Provider: [id number] ELICIA RHODES MRN/PID: [id number] Fellow: Nurse: Date of /Age: 6 1940 / 83 years [employer] Supervisor: Allyson Dobson RDCS, RVT Gender: F Additional Staff: Height: 167.64 cm Admit Date: Weight: 88.00 kg Admission Status: BSA: 1.97 m2 Department Location: [facility] Blood Pressure: 140 /74 mmHg Study Type: TRANSTHORACIC ECHO (TTE) COMPLETE Diagnosis/ICD: Nonrheumatic aortic (valve) insufficiency-I35.1; 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; Pulmonary hypertension, unspecified-I27.20 Indication: Atrial Fibrillation, HTN, Hyperlipidemia, 2/6 Diastolic Murmur, CKD-Stage III-IV, Multiple Myeloma-in Remission, Cerebellar Infarct, Obesity CPT Codes: Echo Complete w Full Doppler-[id number] Study Detail: The following Echo studies were [...] mmHg PIEDV: 2.22 m/s PADP: 22.7 mmHg [id number] Russel Tolbert MD Electronically signed on 11/03/2023 at 11:22:05 AM Final Normal [facility] Alanine aminotransferase [En zymatic activity/volume] in Serum or PlasmaOrdered By: Claire Choi on 10-18-2023 ALT [Catalytic activity/Vol] 9 U/L Normal 7-[address] [facility] Comment on above: Performed By: #### V BG #### Point of Care testing , Albumin [Mass/volume] in Ser um or PlasmaOrdered By: Claire Choi on 10-18-2023 Albumin [Mass/Vol] 3.6 g/dL Normal 2.9-4.4 [facility] Comment on above: Performed By: #### V BG #### Point of Care testing , Albumin [Mass/volume] in Ser um or Plasma by Bromocresol green (BCG) dye binding methoOrdered By: Claire Choi on 10-18-2023 Albumin BCG dye [Mass/Vol] 3.8 g/dL 3.5-5.[address] [facility] Alkaline phosphatase [Enzyma tic activity/volume] in Serum or PlasmaOrdered By: Claire Choi on 10-18-2023 ALP [Catalytic activity/Vol] 94 U/L Normal 34-[address] [facility] Comment on above: Performed By: #### V BG #### Point of Care testing , Aspartate aminotransferase [ Enzymatic activity/volume] in Serum or PlasmaOrdered By: Claire Choi on 10-18-2023 AST [Catalytic activity/Vol] 14 U/L Normal 13-[address] [facility] Comment on above: Performed By: #### V BG #### Point of Care testing , Automated basophil %Ordered By: Claire Choi on 10-18-2023 Basophils/100 WBC (Bld) 1.2 % Normal . [facility] Comment on above: Performed By: #### V BG #### Point of Care testing , Automated basophil countOrde red By: Claire Choi on 10-18-2023 Basophils (Bld) [#/Vol] 0.1 10*3/uL Normal 0.0-0.[address] [facility] Comment on above: Result Comment: PERF ORMED BY: [facility] [address] [place] [address] PATHOLOGIST FAIRGROUND OPERATOR LUIS DEE M.D. Performed By: #### V BG #### Point of Care testing , Automated blood monocyte cou ntOrdered By: Claire Choi on 10-18-2023 Monocytes (Bld) [#/Vol] 0.6 10*3/uL Normal 0.0-0.[address] [facility] Comment on above: Performed By: #### V BG #### Point of Care testing , Automated eosinophil %Ordere d By: Claire Choi on 10-18-2023 Eosinophils/100 WBC (Bld) 1.1 % Normal . [facility] Comment on above: Performed By: #### V BG #### Point of Care testing , Automated eosinophil countOr dered By: Claire Choi on 10-18-2023 Eosinophils (Bld) [#/Vol] 0.1 10*3/uL Normal 0.0-0.[address] [facility] Comment on above: Performed By: #### V BG #### Point of Care testing , Automated monocyte %Ordered By: Claire Choi on 10-18-2023 Monocytes/100 WBC (Bld) 7.6 % Normal . [facility] Comment on above: Performed By: #### V BG #### Point of Care testing , Automated neutrophil %Ordere d By: Claire Choi on 10-18-2023 Neutrophils/100 WBC (Bld) 59.9 % Normal . [facility] Comment on above: Performed By: #### V BG #### Point of Care testing , Bilirubin.total [Mass/volume ] in Serum or PlasmaOrdered By: Claire Choi on 10-18-2023 Bilirubin [Mass/Vol] 0.4 mg/dL Normal 0.3-1.0 [facility] Comment on above: Performed By: #### V BG #### Point of Care testing , Calcium [Mass/volume] in Ser um or PlasmaOrdered By: Claire Choi on 10-18-2023 Calcium [Mass/Vol] 8.7 mg/dL Normal 8.6-10.3 [facility] Comment on above: Performed By: #### V BG #### Point of Care testing , Carbon dioxide, total [Moles /volume] in Serum or PlasmaOrdered By: Claire Choi on 10-18-2023 CO2 [Moles/Vol] 24.2 mmol/L Normal 21.0-31.0 [place] Comment on above: Performed By: #### V BG #### Point of Care testing , Chloride [Moles/volume] in S amanda or PlasmaOrdered By: Claire Choi on 10-18-2023 Chloride [Moles/Vol] 108 mmol/L High 98-107 [facility] Comment on above: Performed By: #### V BG #### Point of Care testing , Complete Blood Count Auto Di ffon 10-18-2023 Mean Corpuscular HGB Conc 32.8 g/dL Normal 32.0-35.0 [facility] Comment on above: Performed By: #### V BG #### Point of Care testing , NRBC% 0.1 /100{WBC} Normal 0-0.5 [facility] Comment on above: Performed By: #### V BG #### Point of Care testing , Comprehensive Metabolic Pane natalia 10-18-2023 Albumin [Mass/Vol] 3.8 g/dL Normal 3.5-5.7 [facility] Comment on above: Performed By: #### V BG #### Point of Care testing , Creatinine Clr Calc Pharmacy 20.65 Normal [facility] Comment on above: Result Comment: PERF ORMED BY: [facility] [address] [place] [address] PATHOLOGIST FAIRGROUND OPERATOR LUIS DEE M.D. Performed By: #### V BG #### Point of Care testing , GFR/1.73 sq M.predicted MDRD (S/P/Bld) [Vol rate/Area] 20.198 mL/min/{1.73_m2} Normal [facility] Comment on above: Performed By: #### V BG #### Point of Care testing , Creatinine [Mass/volume] in Serum or PlasmaOrdered By: Claire Choi on 10-18-2023 Creatinine [Mass/Vol] 2.36 mg/dL High 0.60-1.20 [facility] Comment on above: Performed By: #### V BG #### Point of Care testing , Erythrocyte distribution wid th [Ratio] by Automated countOrdered By: Claire Choi on 10-18-2023 Erythrocyte distribution width (RBC) [Ratio] 14.6 % Normal 11.9-15.[address] [facility] Comment on above: Performed By: #### V BG #### Point of Care testing , Erythrocytes [#/volume] in B lood by Automated countOrdered By: Claire Choi on 10-18-2023 RBC (Bld) [#/Vol] 3.72 10*6/uL Normal 3.60-5.00 [place] Comment on above: Performed By: #### V BG #### Point of Care testing , Free K+L LT Chains, Qn, Son 10-18-2023 Free Spiro Light Chains, S 39.7 mg/L High 3.3-19.4 [facility] Comment on above: Performed By: #### V BG #### Point of Care testing , Free Lambda Light Chains, S 23.4 mg/L Normal 5.7-26.3 [facility] Comment on above: Performed By: #### V BG #### Point of Care testing , Spiro/Lambda Ratio, S 1.70 High 0.26-1.65 [facility] Comment on above: Result Comment: Perf ormed at: CB - [facility] [address] [id number] Coffee Supervisor: Elpidio Delgado PhD, Phone: [phone] PERFORMED BY: [address] [place] [address] PATHOLOGIST FAIRGROUND OPERATOR LUIS DEE M.D. Performed By: #### V BG #### Point of Care testing , Glucose [Mass/volume] in Ser um or PlasmaOrdered By: Claire Choi on 10-18-2023 Glucose [Mass/Vol] 176 mg/dL High 70-100 [facility] Comment on above: ADA recommended refe rence rangeRandom Glucose Reference Range is dependent on time and content of last meal. Glucose of more than 200 mg/dL in a nonstressed, ambulatory subject supports the diagnosis of Diabetes Mellitus. Result Comment: [place] om Glucose Reference Range is dependent on [...] (Bld) [Volume fraction] 36.0 % Normal 34.0-46.[address] [facility] Comment on above: Performed By: #### V BG #### Point of Care testing , Hemoglobin [Mass/volume] in BloodOrdered By: Claire Choi on 10-18-2023 Hemoglobin (Bld) [Mass/Vol] 11.8 g/dL Normal 11.8-15.[address] [facility] Comment on above: Performed By: #### V BG #### Point of Care testing , IgA [Mass/volume] in Serum o r PlasmaOrdered By: Claire Choi on 10-18-2023 IgA [Mass/Vol] 162 mg/dL 64-[address] [facility] IgG [Mass/volume] in Serum o r PlasmaOrdered By: Claire Choi on 10-18-2023 IgG [Mass/Vol] 708 mg/dL [phone] [facility] IgM [Mass/volume] in Serum o r PlasmaOrdered By: Claire Choi on 10-18-2023 IgM [Mass/Vol] 117 mg/dL 26-[address] [facility] Comment on above: Performed at: [facility] [place] [id number] Director: Elpidio Delgado PhD, Phone: [phone] Immunofixation,Serumon 10-18 Immunofixation, Serum Normal . [facility] Comment on above: Result Comment: No m onoclonality detected. Performed By: #### V BG #### Point of Care testing , Immunoglobulin A, Serum 162 mg/dL Normal 64-422 [facility] Comment on above: Performed By: #### V BG #### Point of Care testing , Immunoglobulin G 708 mg/dL Normal [phone] [facility] Comment on above: Performed By: #### V BG #### Point of Care testing , Immunoglobulin M, Serum 117 mg/dL Normal 26-217 [facility] Comment on above: Result Comment: Perf ormed at: [facility] [place] [id number] Coffee Supervisor: Elpidio Delgado PhD, Phone: [phone] Performed By: #### V BG #### Point of Care testing , Immunoglobulin light chains. kappa.free [Mass/volume] in SerumOrdered By: Claire Choi on 10-18-2023 Immunoglobulin light chains.kappa.free (S) [Mass/Vol] 39.7 mg/L 3.3-19.[address] [facility] Immunoglobulin light chains. kappa.free/Immunoglobulin light chains.lambda.free [MassOrdered By: Claire Choi on 10-18-2023 Immunoglobulin light chains.kappa.free/Immuno globulin light chains.lambda.free (S) [Mass ratio] 1.70 0.26-1.[address] [facility] Comment on above: Performed at: [address] [id number] Director: Elpidio Delgado PhD, Phone: [phone] Immunoglobulin light chains. lambda.free [Mass/volume] in Serum or PlasmaOrdered By: Claire Choi on 10-18-2023 Immunoglobulin light chains.lambda.free [Mass/Vol] 23.4 mg/L 5.7-26.[address] [facility] Leukocytes [#/volume] correc dominick for nucleated erythrocytes in Blood by Automated counOrdered By: Claire Choi on 10-18-2023 WBC corrected for nucl RBC Auto (Bld) [#/Vol] 8.2 10*3/uL 3.8-11.[address] [facility] Leukocytes [#/volume] in Blo od by Automated countOrdered By: Claire Choi on 10-18-2023 WBC (Bld) [#/Vol] 8.2 10*3/uL Normal 3.8-11.6 [facility] Comment on above: Performed By: #### V BG #### Point of Care testing , Lymphocytes [#/volume] in Bl ood by Automated countOrdered By: Claire Choi on 10-18-2023 Lymphocytes (Bld) [#/Vol] 2.5 10*3/uL Normal 1.00-4.[address] [facility] Comment on above: Performed By: #### V BG #### Point of Care testing , Lymphocytes/100 leukocytes i n Blood by Automated countOrdered By: Claire Choi on 10-18-2023 Lymphocytes/100 WBC (Bld) 30.2 % Normal . [facility] Comment on above: Performed By: #### V BG #### Point of Care testing , MCH [Entitic mass] by Automa dominick countOrdered By: Claire Choi on 10-18-2023 MCH (RBC) [Entitic mass] 31.8 pg Normal 24.7-34.[address] [facility] Comment on above: Performed By: #### V BG #### Point of Care testing , MCHC Auto (RBC) [Mass/Vol]Or dered By: Claire Choi on 10-18-2023 MCHC (RBC) [Mass/Vol] 32.8 g/dL 32.0-35.0 [facility] MCV [Entitic volume] by Auto mated countOrdered By: Claire Choi on 10-18-2023 MCV (RBC) [Entitic vol] 96.9 fL Normal 80-100 [facility] Comment on above: Performed By: #### V BG #### Point of Care testing , Neutrophils [#/volume] in Bl ood by Automated countOrdered By: Claire Choi on 10-18-2023 Neutrophils (Bld) [#/Vol] 4.9 10*3/uL Normal 1.8-7.[address] [facility] Comment on above: Performed By: #### V BG #### Point of Care testing , No Panel InformationOrdered By: Claire Choi on 10-18-2023 Estimated GFR (CKD-EPI) 20.198 mL/Min [facility] Creatinine Clearance (Chem 20.[address] [facility] Protein Electrophoresis M-Krystian Not observed g/dL Not Observed [facility] Protein Electrophoresis Note See comment . [facility] Comment on above: Protein electrophore sis scan will follow via computer,mail, or gas engine mechanic delivery. Serum Immunofixation See comment . [facility] Comment on above: No monoclonality det ected. Nucleated erythrocytes [Pres ence] in Blood by Automated countOrdered By: Claire Choi on 10-18-2023 Nucleated RBC Auto Ql (Bld) 0.1 /100{WBC} 0-0.[address] [facility] Platelet mean volume [Entiti c volume] in Blood by Automated countOrdered By: Claire Choi on 10-18-2023 Platelet mean volume (Bld) [Entitic vol] 9.8 fL Normal 6.3-10.[address] [facility] Comment on above: Performed By: #### V BG #### Point of Care testing , Platelets [#/volume] in Bloo d by Automated countOrdered By: Claire Choi on 10-18-2023 Platelets (Bld) [#/Vol] 199 10*3/uL Normal 150-[address] [facility] Comment on above: Performed By: #### V BG #### Point of Care testing , Potassium [Moles/volume] in Serum or PlasmaOrdered By: Claire Choi on 10-18-2023 Potassium [Moles/Vol] 4.9 mmol/L Normal 3.5-5.1 [facility] Comment on above: Performed By: #### V BG #### Point of Care testing , Protein Electrophoresis, Ser umon 10-18-2023 Ktoce-7-Notmcknf 0.2 g/dL Normal 0.0-0.4 [facility] Comment on above: Performed By: #### V BG #### Point of Care testing , Ryssn-8-Chjgyfel 0.9 g/dL Normal 0.4-1.0 [facility] Comment on above: Performed By: #### V BG #### Point of Care testing , Beta Globulin 0.9 g/dL Normal 0.7-1.3 [facility] Comment on above: Performed By: #### V BG #### Point of Care testing , Gamma Globulin 0.8 g/dL Normal 0.4-1.8 [facility] Comment on above: Performed By: #### V BG #### Point of Care testing , M-Krystian Not Observed Normal Not Observed [facility] Comment on above: Performed By: #### V BG #### Point of Care testing , SPE-Note Normal . [facility] Comment on above: Result Comment: Prot ein electrophoresis scan will follow via computer, mail, or gas engine mechanic delivery. Performed By: #### V BG #### Point of Care testing , Protein [Mass/volume] in Ser um or PlasmaOrdered By: Claire Choi on 10-18-2023 Protein [Mass/Vol] 6.3 g/dL Low 6.4-8.9 [facility] Comment on above: Performed By: #### V BG #### Point of Care testing , Protein [Mass/Vol] 6.4 g/dL Normal 6.0-8.5 [facility] Comment on above: Performed By: #### V BG #### Point of Care testing , Serum globulin measurement ( mass/volume)Ordered By: Claire Choi on 10-18-2023 Globulin (S) [Mass/Vol] 2.8 g/dL Normal 2.2-3.9 [facility] Comment on above: Performed By: #### V BG #### Point of Care testing , Serum globulin measurement b y calculation (mass/volume)Ordered By: Claire Choi on 10-18-2023 Globulin (S) [Mass/Vol] 2.5 g/dL Normal [facility] Comment on above: Performed By: #### V BG #### Point of Care testing , Serum or plasma albumin/glob ulin mass ratioOrdered By: Claire Choi on 10-18-2023 Albumin/Globulin [Mass ratio] 1.5 {ratio} Normal [facility] Comment on above: Performed By: #### V BG #### Point of Care testing , Albumin/Globulin [Mass ratio] 1.3 {ratio} Normal 0.7-1.[address] [facility] Comment on above: Performed By: #### V BG #### Point of Care testing , Serum or plasma alpha 1 glob ulin measurement by electrophoresis (mass/volume)Ordered By: Claire Choi on 10-18-2023 Alpha 1 globulin Elph [Mass/Vol] 0.2 g/dL 0.0-0.[address] [facility] Serum or plasma alpha 2 glob ulin measurement by electrophoresis (mass/volume)Ordered By: Claire Choi on 10-18-2023 Alpha 2 globulin Elph [Mass/Vol] 0.9 g/dL 0.4-1.[address] [facility] Serum or plasma anion gap de terminationOrdered By: Claire Choi on 10-18-2023 Anion gap [Moles/Vol] 10.7 mmol/L Normal 6.0-15.0 [facility] Comment on above: Performed By: #### V BG #### Point of Care testing , Serum or plasma beta globuli n measurement by electrophoresis (mass/volume)Ordered By: Claire Choi on 10-18-2023 Beta globulin Elph [Mass/Vol] 0.9 g/dL 0.7-1.[address] [facility] Serum or plasma gamma globul in measurement by electrophoresis (mass/volume)Ordered By: Claire Choi on 10-18-2023 Gamma globulin Elph [Mass/Vol] 0.8 g/dL 0.4-1.[address] [facility] Sodium [Moles/volume] in Ser um or PlasmaOrdered By: Claire Choi on 10-18-2023 Sodium [Moles/Vol] 138 mmol/L Normal 136-145 [facility] Comment on above: Performed By: #### V BG #### Point of Care testing , Urea nitrogen [Mass/volume] in Serum or PlasmaOrdered By: Claire Choi on 10-18-2023 Urea nitrogen [Mass/Vol] 35 mg/dL High 7-[address] [facility] Comment on above: Performed By: #### V BG #### Point of Care testing , ECG 12 Leadon 10-04-2023 Normal sinus rhythm [facility] Work Phone: Automated erythrocytes count in urine sediment (number/area)Ordered By: Claire Choi on 07-19-2023 RBC Auto (Urine sed) [#/Area] 0-1 [HPF] 0-[address] [facility] Automated leukocytes count i n urine sediment (number/area)Ordered By: Claire Choi on 07-19-2023 WBC Auto (Urine sed) [#/Area] 0-1 [HPF] 0-[address] [facility] Bilirubin Test strip Ql (U)O rdered By: Claire Choi on 07-19-2023 Bilirubin Ql (U) Negative Negative [place] Color Auto (U)Ordered By: Reynaldo Choi on 07-19-2023 Color (U) Yellow Yellow [facility] Ketones Auto test strip (U) [Mass/Vol]Ordered By: Claire Choi on 07-19-2023 Ketones (U) [Mass/Vol] Negative Negative [facility] - UrinalysisOrder ed By: Claire Choi on 07-19-2023 Hyaline casts LM Ql (Urine sed) None seen [LPF] 0-[address] [facility] Nitrite Test strip Ql (U)Ord ered By: Claire Choi on 07-19-2023 Nitrite Ql (U) Negative Negative [facility] Protein Auto test strip (U) [Mass/Vol]Ordered By: Claire Choi on 07-19-2023 Protein (U) [Mass/Vol] 100 mg/dL High Negative [facility] Specific gravity Auto test s trip (U) [Rel density]Ordered By: Claire Choi on 07-19-2023 Specific gravity (U) [Rel density] 1.018 1.001-1.[address] [facility] Squamous epithelial cells de tection in urine sediment by light microscopyOrdered By: Claire Choi on 07-19-2023 Epithelial cells.squamous LM Ql (Urine sed) 0-1 [HPF] 0-[address] [facility] Urine bacteria detection by automated methodOrdered By: Claire Choi on 07-19-2023 Bacteria Auto Ql (U) None seen None Seen [facility] Urine clarity by refractomet ry automatedOrdered By: Claire Choi on 07-19-2023 Clarity Refractometry automated (U) Clear Clear [facility] Urine glucose measurement by automated test strip (mass/volume)Ordered By: Claire Choi on 07-19-2023 Glucose Auto test strip (U) [Mass/Vol] Normal mg/dL Normal [facility] Urine hemoglobin detection b y automated test stripOrdered By: Claire Choi on 07-19-2023 Hemoglobin Auto test strip Ql (U) Negative Negative [facility] Urine leukocyte esterase det ection by automated test stripOrdered By: Claire Choi on 07-19-2023 Leukocyte esterase Auto test strip Ql (U) Negative Negative [facility] Urobilinogen Auto test strip (U) [Mass/Vol]Ordered By: Claire Choi on 07-19-2023 Urobilinogen (U) [Mass/Vol] Normal mg/dL Normal [facility] pH Auto test strip (U)Ordere d By: Claire Choi on 07-19-2023 pH (U) 6.0 [pH] 5.0-9.[address] [facility] Alanine aminotransferase [En zymatic activity/volume] in Serum or PlasmaOrdered By: Misti Connolly on 07-12-2023 ALT [Catalytic activity/Vol] 12 U/L 7-[address] [facility] Albumin [Mass/volume] in Ser um or PlasmaOrdered By: Misti Connolly on 07-12-2023 Albumin [Mass/Vol] 3.5 g/dL 2.9-4.4 [facility] Albumin [Mass/volume] in Ser um or Plasma by Bromocresol green (BCG) dye binding methoOrdered By: Misti Connolly on 07-12-2023 Albumin BCG dye [Mass/Vol] 3.6 g/dL 3.5-5.[address] [facility] Alkaline phosphatase [Enzyma tic activity/volume] in Serum or PlasmaOrdered By: Misti Connolly on 07-12-2023 ALP [Catalytic activity/Vol] 83 U/L 34-[address] [facility] Aspartate aminotransferase [ Enzymatic activity/volume] in Serum or PlasmaOrdered By: Misti Connolly on 07-12-2023 AST [Catalytic activity/Vol] 14 U/L 13-[address] [facility] Basophils Auto (Bld) [#/Vol] Ordered By: Misti Connolly on 07-12-2023 Basophils (Bld) [#/Vol] 0.0 10*3/uL 0.0-0.[address] [facility] Basophils/100 WBC Auto (Bld) Ordered By: Misti Connolly on 07-12-2023 Basophils/100 WBC (Bld) 0.4 % . [facility] Bilirubin.total [Mass/volume ] in Serum or PlasmaOrdered By: Misti Connolly on 07-12-2023 Bilirubin [Mass/Vol] 0.4 mg/dL 0.3-1.0 [facility] Calcium [Mass/volume] in Ser um or PlasmaOrdered By: Misti Connolly on 08-29-2023 Calcium [Mass/Vol] 8.5 mg/dL 8.6-10.3 [facility] Carbon dioxide, total [Moles /volume] in Serum or PlasmaOrdered By: Misti Connolly on 07-12-2023 CO2 [Moles/Vol] 22.7 mmol/L 21.0-31.0 [place] Chloride [Moles/volume] in S amanda or PlasmaOrdered By: Misti Connolly on 07-12-2023 Chloride [Moles/Vol] 111 mmol/L 98-107 [facility] Creatinine [Mass/volume] in Serum or PlasmaOrdered By: Misti Connolly on 07-12-2023 Creatinine [Mass/Vol] 2.50 mg/dL 0.60-1.20 [facility] Eosinophils Auto (Bld) [#/Vo l]Ordered By: Misti Connolly on 07-12-2023 Eosinophils (Bld) [#/Vol] 0.1 10*3/uL 0.0-0.[address] [facility] Eosinophils/100 WBC Auto (Bl d)Ordered By: Misti Connolly on 07-12-2023 Eosinophils/100 WBC (Bld) 1.1 % . [facility] Erythrocyte distribution wid th Auto (RBC) [Ratio]Ordered By: Misti Connolly on 07-12-2023 Erythrocyte distribution width (RBC) [Ratio] 13.8 % 11.9-15.[address] [facility] Glucose [Mass/volume] in Ser um or PlasmaOrdered By: Misti Connolly on 07-12-2023 Glucose [Mass/Vol] 119 mg/dL 70-100 [facility] Comment on above: ADA recommended refe rence range Glucose mean value [Mass/vol ume] in Blood Estimated from glycated hemoglobinOrdered By: Misti Connolly on 07-12-2023 Average glucose Estimated from glycated hemoglobin (Bld) [Mass/Vol] 174 mg/dL [facility] Hematocrit Auto (Bld) [Volum e fraction]Ordered By: Misti Connolly on 07-12-2023 Hematocrit (Bld) [Volume fraction] 36.0 % 34.0-46.[address] [facility] Hemoglobin [Mass/volume] in BloodOrdered By: Misti Connolly on 07-12-2023 Hemoglobin (Bld) [Mass/Vol] 12.0 g/dL 11.8-15.[address] [facility] Immunoglobulin light chains. kappa.free [Mass/volume] in SerumOrdered By: Misti Connolly on 07-12-2023 Immunoglobulin light chains.kappa.free (S) [Mass/Vol] 40.5 mg/L 3.3-19.[address] [facility] Immunoglobulin light chains. kappa.free/Immunoglobulin light chains.lambda.free [MassOrdered By: Misti Connolly on 07-12-2023 Immunoglobulin light chains.kappa.free/Immuno globulin light chains.lambda.free (S) [Mass ratio] 1.75 0.26-1.[address] [facility] Comment on above: Performed at: [address] [id number] Director: Elpidio Delgado PhD, Phone: [phone] Immunoglobulin light chains. lambda.free [Mass/volume] in Serum or PlasmaOrdered By: Misti Connolly on 07-12-2023 Immunoglobulin light chains.lambda.free [Mass/Vol] 23.2 mg/L 5.7-26.[address] [facility] Laboratory - Hematology and Cell countsOrdered By: Misti Connolly on 07-12-2023 HbA1c (Bld) [Mass fraction] 7.7 % High 4.3-5.[address] [facility] Comment on above: Increased risk for d iabetes: 5.7 - 6.4diabetes: >6.4glycemic control for adults with diabetes: <7.0 Leukocytes [#/volume] correc dominick for nucleated erythrocytes in Blood by Automated counOrdered By: Misti Connolly on 07-12-2023 WBC corrected for nucl RBC Auto (Bld) [#/Vol] 7.3 10*3/uL 3.8-11.[address] [facility] Lymphocytes Auto (Bld) [#/Vo l]Ordered By: Misti Connolly on 07-12-2023 Lymphocytes (Bld) [#/Vol] 2.4 10*3/uL 1.00-4.[address] [facility] Lymphocytes/100 WBC Auto (Bl d)Ordered By: Misti Connolly on 07-12-2023 Lymphocytes/100 WBC (Bld) 33.7 % . [facility] MCH Auto (RBC) [Entitic mass ]Ordered By: Misti Connolly on 07-12-2023 MCH (RBC) [Entitic mass] 31.5 pg 24.7-34.[address] [facility] MCHC Auto (RBC) [Mass/Vol]Or dered By: Misti Connolly on 07-12-2023 MCHC (RBC) [Mass/Vol] 33.2 g/dL 32.0-35.0 [facility] MCV Auto (RBC) [Entitic vol] Ordered By: Misti Connolly on 07-12-2023 MCV (RBC) [Entitic vol] 95.0 fL 80-100 [facility] Monocytes Auto (Bld) [#/Vol] Ordered By: Misti Connolly on 07-12-2023 Monocytes (Bld) [#/Vol] 0.5 10*3/uL 0.0-0.[address] [facility] Monocytes/100 WBC Auto (Bld) Ordered By: Misti Connolly on 07-12-2023 Monocytes/100 WBC (Bld) 6.2 % . [facility] Neutrophils Auto (Bld) [#/Vo l]Ordered By: Misti Connolly on 07-12-2023 Neutrophils (Bld) [#/Vol] 4.3 10*3/uL 1.8-7.[address] [facility] Neutrophils/100 WBC Auto (Bl d)Ordered By: Misti Connolly on 07-12-2023 Neutrophils/100 WBC (Bld) 58.6 % . [facility] No Panel InformationOrdered By: Misti Connolly on 07-12-2023 Estimated GFR (CKD-EPI) 18.848 mL/Min [facility] Creatinine Clearance (Chem 19.[address] [facility] Protein Electrophoresis M-Krystian Not observed g/dL Not Observed [facility] Protein Electrophoresis Note See comment . [facility] Comment on above: Protein electrophore sis scan will follow via computer,mail, or gas engine mechanic delivery.Performed at: [address] [id number] Director: Elpidio Delgado PhD, Phone: [phone] Nucleated erythrocytes [Pres ence] in Blood by Automated countOrdered By: Misti Connolly on 07-12-2023 Nucleated RBC Auto Ql (Bld) 0.1 /100{WBC} 0-0.[address] [facility] Platelet mean volume Auto (B ld) [Entitic vol]Ordered By: Misti Connolly on 07-12-2023 Platelet mean volume (Bld) [Entitic vol] 9.5 fL 6.3-10.[address] [facility] Platelets Auto (Bld) [#/Vol] Ordered By: Misti Connolly on 07-12-2023 Platelets (Bld) [#/Vol] 198 10*3/uL 150-[address] [facility] Potassium [Moles/volume] in Serum or PlasmaOrdered By: Misti Connolly on 07-12-2023 Potassium [Moles/Vol] 4.5 mmol/L 3.5-5.1 [facility] Protein [Mass/volume] in Ser um or PlasmaOrdered By: Misti Connolly on 07-12-2023 Protein [Mass/Vol] 6.3 g/dL 6.4-8.9 [facility] Protein [Mass/Vol] 6.2 g/dL 6.0-8.5 [facility] RBC Auto (Bld) [#/Vol]Ordere d By: Misti Connolly on 07-12-2023 RBC (Bld) [#/Vol] 3.79 10*6/uL 3.60-5.00 [place] Serum globulin measurement b y calculation (mass/volume)Ordered By: Misti Connolly on 07-12-2023 Globulin (S) [Mass/Vol] 2.7 g/dL 2.2-3.9 [facility] Serum or plasma albumin/glob ulin mass ratioOrdered By: Misti Connolly on 07-12-2023 Albumin/Globulin [Mass ratio] 1.3 {ratio} 0.7-1.[address] [facility] Serum or plasma alpha 1 glob ulin measurement by electrophoresis (mass/volume)Ordered By: Misit Connolly on 07-12-2023 Alpha 1 globulin Elph [Mass/Vol] 0.1 g/dL 0.0-0.[address] [facility] Serum or plasma alpha 2 glob ulin measurement by electrophoresis (mass/volume)Ordered By: Misti Connolly on 07-12-2023 Alpha 2 globulin Elph [Mass/Vol] 1.0 g/dL 0.4-1.[address] [facility] Serum or plasma anion gap de terminationOrdered By: Mitsi Connolly on 07-12-2023 Anion gap [Moles/Vol] 10.8 mmol/L 6.0-15.0 [facility] Serum or plasma beta globuli n measurement by electrophoresis (mass/volume)Ordered By: Misti Connolly on 07-12-2023 Beta globulin Elph [Mass/Vol] 0.9 g/dL 0.7-1.[address] [facility] Serum or plasma gamma globul in measurement by electrophoresis (mass/volume)Ordered By: Misti Connolly on 07-12-2023 Gamma globulin Elph [Mass/Vol] 0.6 g/dL 0.4-1.[address] [facility] Sodium [Moles/volume] in Ser um or PlasmaOrdered By: Misti Connolly on 07-12-2023 Sodium [Moles/Vol] 140 mmol/L 136-145 [facility] Urea nitrogen [Mass/volume] in Serum or PlasmaOrdered By: Misti Connolly on 07-12-2023 Urea nitrogen [Mass/Vol] 33 mg/dL 7-[address] [facility] WBC Auto (Bld) [#/Vol]Ordere d By: Misti Connolly on 07-12-2023 WBC (Bld) [#/Vol] 7.3 10*3/uL 3.8-11.6 [facility] Office Visit (Cardiology)on 03-23-2023 Follow-up visit Diagnoses/Problems [...] Weight Tips; Status:Complete - Retrospective Authorization; Done: [id number] Some eating tips that can help you lose weight.; Status:Complete - Retrospective Authorization; Done: [id number] SocHx: Never a smoker Tobacco Use Screening; Status:Complete; Done: [id number] Patient Instructions Please bring all medicines, vitamins, [...] recurrence. She did have noninvasive assessment at [facility], which was negative. Couple of years [...] Screening.on 023 Adult depression screening assessment No [facility] [address] DO Work Phone: Fall risk assessment a) No falls within the last year [facility] DO Work Phone: Tobacco use status [facility]PH[facility] b) No [facility] DO Work Phone: Operative Reporton 3 Operative Report [id number]:12 7 Normal [facility] LIPID PROFILEon 02-21-2023 CHOL-HDL RATIO NORM SEE BELOW Normal [facility] Comment on above: Result Comment: 3.3 - 4.4 LOW RISK 4.4 - 7.1 AVERAGE RISK 7.1 - 11.0 MODERATE RISK >11.0 HIGH RISK Performed By: #### H H #### [facility] [address] [address] [address] Richa Cheema Cholesterol [Mass/Vol] 173 mg/dL Normal <=[address] [facility] Comment on above: Performed By: #### H H #### [facility] [address] [address] [address] Richa Cheema Cholesterol in HDL [Mass/Vol] 63 mg/dL Critically high 40-60 [facility] Comment on above: Performed By: #### H H #### [facility] [address] [address] [address] Richa Cheema Cholesterol in LDL [Mass/Vol] 75.6 mg/dL Normal [facility] Comment on above: Performed By: #### H H #### [facility] [address] [address] [address] Richa Cheema Cholesterol.total/Choles terol in HDL [Mass ratio] 2.7 {ratio} Normal [facility] Comment on above: Performed By: #### H H #### [facility] [address] [address] [address] Richa Cheema HDL NORMAL > or = 60 mg/dl - LO W CARDIOVASCULAR RISK <40 mg/dl - HIGH CARDIOVASCULAR RISK Normal [facility] Comment on above: Performed By: #### H H #### [facility] [address] [address] [address] Richa Cheema LDL CALC NORMAL SEE BELOW Normal [facility] Comment on above: Result Comment: <100 mg/dl OPTIMAL 100 - 129 mg/dl NEAR OR ABOVE OPTIMAL 130 - 159 mg/dl BORDERLINE HIGH 160 - 189 mg/dl HIGH >190 mg/dl VERY HIGH Performed By: #### H H #### [facility] [address] [address] [address] Richa Cheema Triglyceride [Mass/Vol] 172 mg/dL Critically high <=150 [facility] Comment on above: Performed By: #### H H #### [facility] [address] [place] [address] Dr. Richa Cheema VLDL CALC 34.4 mg/dL Normal [facility] Comment on above: Performed By: #### H H #### [facility] [address] [place] [address] Dr. Richa Cheema PROF CHEM 8 (BAS METB)on Anion gap [Moles/Vol] 13.2 mmol/L Normal [facility] Comment on above: Performed By: #### H H #### [facility] [address] [place] [address] Dr. Richa Cheema Calcium [Mass/Vol] 8.8 mg/dL Normal 8.5-10.1 [facility] Comment on above: Performed By: #### H H #### [facility] [address] [place] [address] Dr. Richa Cheema Chloride [Moles/Vol] 108 mmol/L Critically high 98-107 [facility] Comment on above: Performed By: #### H H #### [facility] [address] [place] [address] Dr. Richa Cheema CO2 [Moles/Vol] 25.7 mmol/L Normal 21.0-32.0 [facility] Comment on above: Performed By: #### H H #### [facility] [address] [address] [address] Richa Cheema Creatinine [Mass/Vol] 2.30 mg/dL Critically high 0.55-1.02 [facility] Comment on above: Performed By: #### H H #### [facility] [address] [address] [address] Richa Cheema EGFR-AF SUDANESE 25 mL/min/1.73m2 Critically low >=60 [facility] Comment on above: Performed By: #### H H #### [facility] [address] [address] [address] Richa Cheema EGFR-NON AF SUDANESE 20 mL/min/1.73m2 Critically low >=60 [facility] Comment on above: Performed By: #### H H #### [facility] [address] [place] [address] Dr. Richa Cheema Glucose [Mass/Vol] 139 mg/dL Critically high 74-106 [facility] Comment on above: Performed By: #### H H #### [facility] [address] [place] [address] Dr. Richa Cheema Potassium [Moles/Vol] 4.9 mmol/L Normal 3.5-5.1 [facility] Comment on above: Performed By: #### H H #### [facility] [address] [place] [address] Dr. Richa Cheema Sodium [Moles/Vol] 142 mmol/L Normal 136-145 [facility] Comment on above: Performed By: #### H H #### [facility] [address] [address] [address] Richa Cheema Urea nitrogen [Mass/Vol] 25.0 mg/dL Critically high 7.0-18 .0 [facility] Comment on above: Performed By: #### H H #### [facility] [address] [address] [address] Richa Cheema Urea nitrogen/Creatinine [Mass ratio] 10.9 mg/mg Normal [facility] Comment on above: Performed By: #### H H #### [facility] [address] [address] [address] Richa Cheema Maryn 02-21-2023 AST [Catalytic activity/Vol] 18 U/L Normal 15-37 [facility] Comment on above: Performed By: #### H H #### [facility] [id number] Richa Cheema Belkis 02-21-2023 ALT [Catalytic activity/Vol] 18 U/L Normal 14-59 [facility] Comment on above: Performed By: #### H H #### [facility] [id number] Richa Cheema Consent for Procedure/Surger yon 02-04-2023 Consent for Procedure/Surgery [id number]:12 7 Normal [facility] XR BONE SURVEYon 01-07-2023 XR BONE [...] by: DIANN IBANEZ Date: 2023-01-07 07:54 Normal [facility] XR KUB 1 VIEWon 01-06-2023 XR KUB [...] DIANN IBANEZ Date: 2023-01-06 18:33 Normal [facility] Albumin [Mass/volume] in Ser um or PlasmaOrdered By: Claire Choi on 01-04-2023 Albumin [Mass/Vol] 3.6 g/dL 3.2-5.5 [facility] Alkaline phosphatase [Enzyma tic activity/volume] in Serum or PlasmaOrdered By: Claire Choi on 01-04-2023 ALP [Catalytic activity/Vol] 99 U/L 32-[address] [facility] Aspartate aminotransferase [ Enzymatic activity/volume] in Serum or PlasmaOrdered By: Claire Choi on 01-04-2023 AST [Catalytic activity/Vol] 14 U/L 10-[address] [facility] Basophils Auto (Bld) [#/Vol] Ordered By: Claire Choi on 01-04-2023 Basophils (Bld) [#/Vol] 0.1 10*3/uL 0.0-0.[address] [facility] Basophils/100 WBC Auto (Bld) Ordered By: Claire Choi on 01-04-2023 Basophils/100 WBC (Bld) 0.8 % . [facility] Bilirubin.total [Mass/volume ] in Serum or PlasmaOrdered By: Claire Choi on 01-04-2023 Bilirubin [Mass/Vol] 0.6 mg/dL 0.3-1.2 [facility] Calcium [Mass/volume] in Ser um or PlasmaOrdered By: Claire Choi on 01-04-2023 Calcium [Mass/Vol] 8.7 mg/dL 8.2-10.2 [facility] Carbon dioxide, total [Moles /volume] in Serum or PlasmaOrdered By: Claire Choi on 01-04-2023 CO2 [Moles/Vol] 21.9 mmol/L 22.0-30.0 [place] Chloride [Moles/volume] in S amanda or PlasmaOrdered By: Claire Choi on 01-04-2023 Chloride [Moles/Vol] 108 mmol/L 95-114 [facility] Creatinine and Glomerular fi ltration rate.predicted panel (S/P/Bld)Ordered By: Claire Choi on 01-04-2023 Creatinine [Mass/Vol] 2.48 mg/dL 0.44-1.03 [facility] Eosinophils Auto (Bld) [#/Vo l]Ordered By: Claire Choi on 01-04-2023 Eosinophils (Bld) [#/Vol] 0.2 10*3/uL 0.0-0.[address] [facility] Eosinophils/100 WBC Auto (Bl d)Ordered By: Claire Choi on 01-04-2023 Eosinophils/100 WBC (Bld) 2.3 % . [facility] Erythrocyte distribution wid th Auto (RBC) [Ratio]Ordered By: Claire Choi on 01-04-2023 Erythrocyte distribution width (RBC) [Ratio] 13.2 % 11.9-15.[address] [facility] Estimated glomerular filtrat ion rate (GFR) non- AmericanOrdered By: Claire Choi on 01-04-2023 GFR/1.73 sq M.predicted among non-blacks MDRD (S/P/Bld) [Vol rate/Area] 19 mL/Min [facility] Globulin Calc (S) [Mass/Vol] Ordered By: Claire Choi on 01-04-2023 Globulin (S) [Mass/Vol] 2.5 g/dL [facility] Glucose [Mass/volume] in Ser um or PlasmaOrdered By: Claire Choi on 01-04-2023 Glucose [Mass/Vol] 144 mg/dL 70-100 [facility] Comment on above: ADA recommended refe rence rangeRandom Glucose Reference Range is dependent on time and content of last meal. Glucose of more than 200 mg/dL in a nonstressed, ambulatory subject supports the diagnosis of Diabetes Mellitus. Hematocrit Auto (Bld) [Volum e fraction]Ordered By: Claire Choi on 01-04-2023 Hematocrit (Bld) [Volume fraction] 38.4 % 34.0-46.[address] [facility] Hemoglobin [Mass/volume] in BloodOrdered By: Claire Choi on 01-04-2023 Hemoglobin (Bld) [Mass/Vol] 12.7 g/dL 11.8-15.[address] [facility] Immunoglobulin light chains. kappa.free [Mass/volume] in SerumOrdered By: Claire Choi on 01-04-2023 Immunoglobulin light chains.kappa.free (S) [Mass/Vol] 26.9 mg/L 3.3-19.[address] [facility] Immunoglobulin light chains. kappa.free/Immunoglobulin light chains.lambda.free [MassOrdered By: Claire Choi on 01-04-2023 Immunoglobulin light chains.kappa.free/Immuno globulin light chains.lambda.free (S) [Mass ratio] 2.24 0.26-1.[address] [facility] Comment on above: Performed at: [address] [id number] Director: Elpidio Delgado PhD, Phone: [phone] Immunoglobulin light chains. lambda.free [Mass/volume] in Serum or PlasmaOrdered By: Claire Choi on 01-04-2023 Immunoglobulin light chains.lambda.free [Mass/Vol] 12.0 mg/L 5.7-26.[address] [facility] Leukocytes [#/volume] correc dominick for nucleated erythrocytes in Blood by Automated counOrdered By: Claire Choi on 01-04-2023 WBC corrected for nucl RBC Auto (Bld) [#/Vol] 8.9 10*3/uL 3.8-11.[address] [facility] Lymphocytes Auto (Bld) [#/Vo l]Ordered By: Claire Choi on 01-04-2023 Lymphocytes (Bld) [#/Vol] 3.0 10*3/uL 1.00-4.[address] [facility] Lymphocytes/100 WBC Auto (Bl d)Ordered By: Clarie Choi on 01-04-2023 Lymphocytes/100 WBC (Bld) 34.1 % . [facility] MCH Auto (RBC) [Entitic mass ]Ordered By: Claire Choi on 01-04-2023 MCH (RBC) [Entitic mass] 31.4 pg 24.7-34.[address] [facility] MCHC Auto (RBC) [Mass/Vol]Or dered By: Claire Choi on 01-04-2023 MCHC (RBC) [Mass/Vol] 33.0 g/dL 32.0-35.0 [facility] MCV Auto (RBC) [Entitic vol] Ordered By: Claire Choi on 01-04-2023 MCV (RBC) [Entitic vol] 95.1 fL 80-100 [facility] Monocytes Auto (Bld) [#/Vol] Ordered By: Claire Choi on 01-04-2023 Monocytes (Bld) [#/Vol] 0.7 10*3/uL 0.0-0.[address] [facility] Monocytes/100 WBC Auto (Bld) Ordered By: Claire Choi on 01-04-2023 Monocytes/100 WBC (Bld) 8.0 % . [facility] Neutrophils Auto (Bld) [#/Vo l]Ordered By: Claire Choi on 01-04-2023 Neutrophils (Bld) [#/Vol] 4.9 10*3/uL 1.8-7.[address] [facility] Neutrophils/100 WBC Auto (Bl d)Ordered By: Claire Choi on 01-04-2023 Neutrophils/100 WBC (Bld) 54.8 % . [facility] No Panel InformationOrdered By: Claire Choi on 01-04-2023 Estimated GFR () 23 mL/Min [facility] Comment on above: GFR estimated refere nce range: According to KDOQI guidelines, <60 ml/min/1.73m2 is sufficient to diagnose a patient with chronic kidney disease. Pharmacy Creatinine Clearance (Chem 19.[address] [facility] Nucleated erythrocytes [Pres ence] in Blood by Automated countOrdered By: Claire Choi on 01-04-2023 Nucleated RBC Auto Ql (Bld) 0.0 /100{WBC} 0-0.[address] [facility] Platelet mean volume Auto (B ld) [Entitic vol]Ordered By: Claire Choi on 01-04-2023 Platelet mean volume (Bld) [Entitic vol] 9.6 fL 6.3-10.[address] [facility] Platelets Auto (Bld) [#/Vol] Ordered By: Claire Choi on 01-04-2023 Platelets (Bld) [#/Vol] 210 10*3/uL 150-[address] [facility] Potassium [Moles/volume] in Serum or PlasmaOrdered By: Claire Choi on 01-04-2023 Potassium [Moles/Vol] 4.3 mmol/L 3.5-5.1 [facility] Protein [Mass/volume] in Ser um or PlasmaOrdered By: Claire Choi on 01-04-2023 Protein [Mass/Vol] 6.1 g/dL 6.1-7.9 [facility] RBC Auto (Bld) [#/Vol]Ordere d By: Claire Choi on 01-04-2023 RBC (Bld) [#/Vol] 4.04 10*6/uL 3.60-5.00 [place] Serum or plasma alanine genao otransferase measurement without P-5'-P (enzymatic activiOrdered By: Claire Choi on 01-04-2023 ALT No additional P-5'-P [Catalytic activity/Vol] 14 U/L 10-60 [facility] Serum or plasma albumin/glob ulin mass ratioOrdered By: Claire Choi on 01-04-2023 Albumin/Globulin [Mass ratio] 1.4 {ratio} [facility] Serum or plasma anion gap de terminationOrdered By: Claire Choi on 01-04-2023 Anion gap [Moles/Vol] 11.4 mmol/L 6.0-15.0 [facility] Sodium [Moles/volume] in Ser um or PlasmaOrdered By: Claire Choi on 01-04-2023 Sodium [Moles/Vol] 137 mmol/L 136-146 [facility] Urea nitrogen [Mass/volume] in Serum or PlasmaOrdered By: Claire Choi on 01-04-2023 Urea nitrogen [Mass/Vol] 33 mg/dL [address] [facility] WBC Auto (Bld) [#/Vol]Ordere d By: Claire Choi on 01-04-2023 WBC (Bld) [#/Vol] 8.9 10*3/uL 3.8-11.6 [facility] PTH INTACTon 12-15-2022 PTH, Intact 79 pg/mL Critically high 15-65 [facility] Comment on above: Performed By: #### M G, RENAL, URIC #### [facility] [address] [place] [address] Dr. Richa Cheema HEMOGRAM AND PLATELon 2022 Hematocrit (Bld) [Volume fraction] 40.4 % Normal 36.0-48.0 [facility] Comment on above: Performed By: #### H H #### [facility] [address] [address] [address] Richa Cheema Hemoglobin (Bld) [Mass/Vol] 13.5 g/dL Normal 12.0-16.0 [facility] Comment on above: Performed By: #### H H #### [facility] [address] [address] [address] Richa Cheema MCH (RBC) [Entitic mass] 31.7 pg Normal 26.7-34.0 [facility] Comment on above: Performed By: #### H H #### [facility] [address] [place] [address] Dr. Richa Cheema MCHC (RBC) [Mass/Vol] 33.4 g/dL Normal 29.9-35.2 [facility] Comment on above: Performed By: #### H H #### [facility] [address] [place] [address] Dr. Richa Cheema MCV (RBC) [Entitic vol] 94.8 fL Normal 81.0-99.0 [facility] Comment on above: Performed By: #### H H #### [facility] [address] [place] [address] Dr. Richa Cheema PLT 218 103/ul Normal 150-450 [facility] Comment on above: Performed By: #### H H #### [facility] [address] [place] [address] Dr. Richa Cheema RBC 4.26 106/ul Normal 4.20-5.40 [facility] Comment on above: Performed By: #### H H #### [facility] [address] [place] [address] Dr. Richa Cheema WBC 8.7 103/ul Normal 4.0-11.0 [facility] Comment on above: Performed By: #### H H #### [facility] [address] [place] [address] Dr. Richa Cheema MAGNESIUMon 12-14-2022 Magnesium [Mass/Vol] 2.0 mg/dL Normal 1.8-2.4 [facility] Comment on above: Performed By: #### M G, RENAL, URIC #### [facility] [address] [place] [address] Dr. Richa Cheema RENAL FUNCTION PANELon 12-14 Albumin [Mass/Vol] 3.4 g/dL Normal 3.4-5.0 [facility] Comment on above: Performed By: #### M G, RENAL, URIC #### [facility] [address] [place] [address] Dr. Richa Cheema Calcium [Mass/Vol] 8.6 mg/dL Normal 8.5-10.1 [facility] Comment on above: Performed By: #### M G, RENAL, URIC #### [facility] [address] [address] [address] Richa Cheema Chloride [Moles/Vol] 104 mmol/L Normal 98-107 [facility] Comment on above: Performed By: #### M G, RENAL, URIC #### [facility] [address] [place] [address] Dr. Richa Cheema CO2 [Moles/Vol] 29.7 mmol/L Normal 21.0-32.0 [facility] Comment on above: Performed By: #### M G, RENAL, URIC #### [facility] [address] [place] [address] Dr. Richa Cheema Creatinine [Mass/Vol] 2.29 mg/dL Critically high 0.55-1.02 [facility] Comment on above: Performed By: #### M G, RENAL, URIC #### [facility] [address] [place] [address] Dr. Richa Cheema EGFR-AF SUDANESE 25 mL/min/1.73m2 Critically low >=60 [facility] Comment on above: Performed By: #### M G, RENAL, URIC #### [facility] [address] [place] [address] Dr. Richa Cheema EGFR-NON AF SUDANESE 21 mL/min/1.73m2 Critically low >=60 [facility] Comment on above: Performed By: #### M G, RENAL, URIC #### [facility] [address] [place] [address] Dr. Richa Cheema Glucose [Mass/Vol] 133 mg/dL Critically high 74-106 [facility] Comment on above: Performed By: #### M G, RENAL, URIC #### [facility] [address] [place] [address] Dr. Richa Cheema Phosphate [Mass/Vol] 3.9 mg/dL Normal 2.6-4.7 [facility] Comment on above: Performed By: #### M G, RENAL, URIC #### [facility] [address] [place] [address] Dr. Richa Cheema Potassium [Moles/Vol] 4.4 mmol/L Normal 3.5-5.1 [facility] Comment on above: Performed By: #### M G, RENAL, URIC #### [facility] [address] [place] [address] Dr. Richa Cheema Sodium [Moles/Vol] 141 mmol/L Normal 136-145 [facility] Comment on above: Performed By: #### M G, RENAL, URIC #### [facility] [address] [place] [address] Dr. Richa Cheema Urea nitrogen [Mass/Vol] 30.0 mg/dL Critically high 7.0-18 .0 [facility] Comment on above: Performed By: #### M G, RENAL, URIC #### [facility] [address] [place] [address] Dr. Richa Cheema UA RANDOM W/MICROSCOPICon BACTERIA NONE SEEN Normal NONE SEEN [facility] Comment on above: Performed By: #### U AMIC #### [facility] [address] [place] [address] Dr. Richa Cheema Bilirubin Ql (U) Negative Normal NEGATIVE [facility] Comment on above: Performed By: #### U AMIC #### [facility] [address] [place] [address] Dr. Richa Cheema CAST NONE SEEN Normal NONE SEEN [facility] Comment on above: Performed By: #### U AMIC #### [facility] [address] [place] [address] Dr. Richa Cheema Clarity (U) CLEAR Normal CLEAR [facility] Comment on above: Performed By: #### U AMIC #### [facility] [address] [place] [address] Dr. Richa Cheema Color (U) LT. YELLOW Normal YELLOW [facility] Comment on above: Performed By: #### U AMIC #### [facility] [address] [place] [address] Dr. Richa Cheema Crystals LM Nom (Urine sed) NONE SEEN Normal NONE SEEN [facility] Comment on above: Performed By: #### U AMIC #### [facility] [address] [address] [address] Richa Cheema Epithelial cells LM Ql (Urine sed) RARE Normal NONE SEEN /RARE [facility] Comment on above: Performed By: #### U AMIC #### [facility] [address] [address] [address] Richa Cheema Glucose Ql (U) Negative Normal NEGATIVE [facility] Comment on above: Performed By: #### U AMIC #### [facility] [address] [address] [address] Richa Cheema Hemoglobin Ql (U) TRACE-INTACT Abnormal NEGATIVE [facility] Comment on above: Performed By: #### U AMIC #### [facility] [address] [place] [address] Dr. Richa Cheema Ketones Ql (U) Negative Normal NEGATIVE [facility] Comment on above: Performed By: #### U AMIC #### [facility] [address] [address] [address] Richa Cheema LEUKOCYTES Negative Normal NEGATIVE [facility] Comment on above: Performed By: #### U AMIC #### [facility] [address] [address] [address] Richa Cheema MUCOUS NONE SEEN Normal NONE SEEN [facility] Comment on above: Performed By: #### U AMIC #### [facility] [address] [address] [address] Richa Cheema Nitrite Ql (U) Negative Normal NEGATIVE [facility] Comment on above: Performed By: #### U AMIC #### [facility] [address] [address] [address] Richa Cheema pH (U) 8.0 [pH] Normal 5-9 [facility] Comment on above: Performed By: #### U AMIC #### [facility] [address] [place] [address] Dr. Richa Cheema RBC 0-2 Normal 0-2 [facility] Comment on above: Performed By: #### U AMIC #### [facility] [address] [address] [address] Richa Cheema SPEC GRAVITY 1.015 Normal 1.005-<=1. 025 [facility] Comment on above: Performed By: #### U AMIC #### [facility] [address] [place] [address] Dr. Richa Cheema UA PROTEIN 100 mg/dl Abnormal NEGATIVE/ TRACE [facility] Comment on above: Performed By: #### U AMIC #### [facility] [address] [place] [address] Dr. Richa Cheema Urobilinogen Qn (U) 0.2 {Marley'U}/dL Normal 0.2 - 1. 0 [facility] Comment on above: Performed By: #### U AMIC #### [facility] [address] [place] [address] Dr. Richa Cheema WBC NONE SEEN Normal NONE SEEN [facility] Comment on above: Performed By: #### U AMIC #### [facility] [address] [place] [address] Dr. Richa Cheema URIC ACID SERUMon 12-14-2022 Urate [Mass/Vol] 5.3 mg/dL Normal 2.6-6.0 [facility] Comment on above: Performed By: #### M G, RENAL, URIC #### [facility] [address] [place] [address] Dr. Richa Cheema URINE T PROTEIN CREAT RATIOo n 12-14-2022 Protein (U) [Mass/Vol] 113.5 mg/dL Critically high <=12.0 [facility] Comment on above: Performed By: #### M G, RENAL, URIC #### [facility] [address] [place] [address] Dr. Richa Cheema UR PROT CREAT RAT 1.55 Normal [facility] Comment on above: Performed By: #### M G, RENAL, URIC #### [facility] [address] [place] [address] Dr. Richa Cheema URINE CREAT 73.37 mg/dL Normal 20.00-300. 00 [facility] Comment on above: Performed By: #### M G, RENAL, URIC #### [facility] [address] [place], [place] [address] Dr. Richa Cheema VITAMIN D 25 OHon 12-14-2022 VIT D 25-OH 42.8 ng/mL Normal [facility] Comment on above: Performed By: #### H H #### [facility] [address] [place], [place] [address] Dr. Richa Cheema VIT D RANGES SEE BELOW Normal [facility] Comment on above: Result Comment: <20 ng/mL Vit D deficient 20 - <30 ng/mL Vit D insufficient 30 - 100 ng/mL Vit D sufficient >100 ng/mL Potential Toxicity Performed By: #### H H #### [facility] [address] [address] [address] Richa Cheema Albumin [Mass/volume] in Ser um or PlasmaOrdered By: Claire Choi on 10-04-2022 Albumin [Mass/Vol] 3.6 g/dL 2.9-4.4 [facility] - Hematology and Cell countsOrdered By: Claire Choi on 10-04-2022 Nucleated RBC/100 WBC (Bld) [Ratio] 0.1 % 0-0.[address] [facility] No Panel InformationOrdered By: Claire Choi on 10-04-2022 Protein Electrophoresis M-Krystian Not observed g/dL Not Observed [facility] Protein Electrophoresis Note See comment . [facility] Comment on above: Protein electrophore sis scan will follow via computer,mail, or gas engine mechanic delivery.Performed at: [address] [id number] Director: Elpidio Delgado PhD, Phone: [phone] Protein [Mass/volume] in Ser um or PlasmaOrdered By: Claire Choi on 10-04-2022 Protein [Mass/Vol] 6.1 g/dL 6.0-8.5 [facility] Serum globulin measurement ( mass/volume)Ordered By: Claire Choi on 10-04-2022 Globulin (S) [Mass/Vol] 2.5 g/dL 2.2-3.9 [facility] Serum or plasma albumin/glob ulin mass ratioOrdered By: Claire Choi on 10-04-2022 Albumin/Globulin [Mass ratio] 1.4 {ratio} 0.7-1.[address] [facility] Serum or plasma alpha 1 glob ulin measurement by electrophoresis (mass/volume)Ordered By: Claire Choi on 10-04-2022 Alpha 1 globulin Elph [Mass/Vol] 0.2 g/dL 0.0-0.[address] [facility] Serum or plasma alpha 2 glob ulin measurement by electrophoresis (mass/volume)Ordered By: Claire Choi on 10-04-2022 Alpha 2 globulin Elph [Mass/Vol] 0.9 g/dL 0.4-1.[address] [facility] Serum or plasma beta globuli n measurement by electrophoresis (mass/volume)Ordered By: Claire Choi on 10-04-2022 Beta globulin Elph [Mass/Vol] 0.8 g/dL 0.7-1.[address] [facility] Serum or plasma gamma globul in measurement by electrophoresis (mass/volume)Ordered By: Claire Choi on 10-04-2022 Gamma globulin Elph [Mass/Vol] 0.6 g/dL 0.4-1.[address] [facility] Albumin [Mass/volume] in Ser um or PlasmaOrdered By: Claier Choi on 07-13-2022 Albumin [Mass/Vol] 3.4 g/dL 2.9-4.4 [facility] Immunoglobulin light chains. kappa.free [Mass/volume] in SerumOrdered By: Claire Choi on 07-13-2022 Immunoglobulin light chains.kappa.free (S) [Mass/Vol] 21.9 mg/L 3.3-19.[address] [facility] Immunoglobulin light chains. kappa.free/Immunoglobulin light chains.lambda.free [MassOrdered By: Claire Choi on 07-13-2022 Immunoglobulin light chains.kappa.free/Immuno globulin light chains.lambda.free (S) [Mass ratio] 1.87 0.26-1.[address] [facility] Comment on above: Performed at: [address] [id number] Coffee Supervisor: Elpidio Delgado PhD, Phone: [phone] Immunoglobulin light chains. lambda.free [Mass/volume] in Serum or PlasmaOrdered By: Claire Choi on 07-13-2022 Immunoglobulin light chains.lambda.free [Mass/Vol] 11.7 mg/L 5.7-26.[address] [facility] - Chemistry and C hemistry - challengeOrdered By: Claire Choi on 07-13-2022 Protein [Mass/Vol] 0.2 g/dL Not Observed [facility] No Panel InformationOrdered By: Claire Choi on 07-13-2022 Protein Electrophoresis Note See comment . [facility] Comment on above: Protein electrophore sis scan will follow via computer, mail, or gas engine mechanic delivery. Performed at: [address] [id number] [employer] Supervisor: Elpidio Delgado PhD, Phone: [phone] Protein [Mass/volume] in Ser um or PlasmaOrdered By: Claire Choi on 07-13-2022 Protein [Mass/Vol] 6.2 g/dL 6.0-8.5 [facility] Serum globulin measurement ( mass/volume)Ordered By: Claire Choi on 07-13-2022 Globulin (S) [Mass/Vol] 2.8 g/dL 2.2-3.9 [facility] Serum or plasma albumin/glob ulin mass ratioOrdered By: Claire Choi on 07-13-2022 Albumin/Globulin [Mass ratio] 1.2 {ratio} 0.7-1.[address] [facility] Serum or plasma alpha 1 glob ulin measurement by electrophoresis (mass/volume)Ordered By: Claire Choi on 07-13-2022 Alpha 1 globulin Elph [Mass/Vol] 0.2 g/dL 0.0-0.[address] [facility] Serum or plasma alpha 2 glob ulin measurement by electrophoresis (mass/volume)Ordered By: Claire Choi on 07-13-2022 Alpha 2 globulin Elph [Mass/Vol] 0.9 g/dL 0.4-1.[address] [facility] Serum or plasma beta globuli n measurement by electrophoresis (mass/volume)Ordered By: Claire Choi on 07-13-2022 Beta globulin Elph [Mass/Vol] 1.0 g/dL 0.7-1.[address] [facility] Serum or plasma gamma globul in measurement by electrophoresis (mass/volume)Ordered By: Claire Choi on 07-13-2022 Gamma globulin Elph [Mass/Vol] 0.8 g/dL 0.4-1.[address] [facility] CBC AUTO DIFFon 07-12-2022 BASO # 0.0 103/ul Normal 0.0-0.1 [facility] Comment on above: Performed By: #### M G, RENAL, URIC #### [facility] [address] [place] [address] Dr. Richa Cheema Basophils/100 WBC (Bld) 0.2 % Normal 0.2-2.0 [facility] Comment on above: Performed By: #### M G, RENAL, URIC #### [facility] [address] [place] [address] Dr. Richa Cheema EO # 0.1 103/ul Normal 0.0-0.7 [facility] Comment on above: Performed By: #### M G, RENAL, URIC #### [facility] [address] [place] [address] Dr. Richa Cheema Eosinophils/100 WBC (Bld) 1.5 % Normal 0.9-7.0 [facility] Comment on above: Performed By: #### M G, RENAL, URIC #### [facility] [address] [place] [address] Dr. Richa Cheema Erythrocyte distribution width (RBC) [Ratio] 13.8 % Normal 11.0-15.0 [facility] Comment on above: Performed By: #### M G, RENAL, URIC #### [facility] [address] [place] [address] Dr. Richa Cheema Hematocrit (Bld) [Volume fraction] 38.4 % Normal 36.0-48.0 [facility] Comment on above: Performed By: #### M G, RENAL, URIC #### [facility] [address] [place] [address] Dr. Richa Cheema Hemoglobin (Bld) [Mass/Vol] 13.0 g/dL Normal 12.0-16.0 [facility] Comment on above: Performed By: #### M G, RENAL, URIC #### [facility] [address] [address] [address] Richa Cheema IG # 0.01 10e3/ul Normal 0.00-0.03 [facility] Comment on above: Performed By: #### M G, RENAL, URIC #### [facility] [address] [address] [address] Richa Cheema IG % 0.1 % Normal 0.0-0.5 [facility] Comment on above: Performed By: #### M G, RENAL, URIC #### [facility] [address] [place] [address] Dr. Richa Cheema LYMPH # 3.5 103/ul Normal 1.2-3.8 [facility] Comment on above: Performed By: #### M G, RENAL, URIC #### [facility] [address] [place] [address] Dr. Richa Cheema Lymphocytes/100 WBC (Bld) 42.4 % Normal 20.5-60.0 [facility] Comment on above: Performed By: #### M G, RENAL, URIC #### [facility] [address] [place] [address] Dr. Richa Cheema MANUAL DIFF REQ NO Normal [facility] Comment on above: Performed By: #### M G, RENAL, URIC #### [facility] [address] [place] [address] Dr. Richa Cheema MCH (RBC) [Entitic mass] 31.8 pg Normal 26.7-34.0 [facility] Comment on above: Performed By: #### M G, RENAL, URIC #### [facility] [address] [place] [address] Dr. Richa Cheema MCHC (RBC) [Mass/Vol] 33.9 g/dL Normal 29.9-35.2 [facility] Comment on above: Performed By: #### M G, RENAL, URIC #### [facility] [address] [place] [address] Dr. Richa Cheema MCV (RBC) [Entitic vol] 93.9 fL Normal 81.0-99.0 [facility] Comment on above: Performed By: #### M G, RENAL, URIC #### [facility] [address] [place] [address] Dr. Richa Cheema MONO # 0.5 103/ul Normal 0.3-0.8 [facility] Comment on above: Performed By: #### M G, RENAL, URIC #### [facility] [address] [place] [address] Dr. Richa Cheema Monocytes/100 WBC (Bld) 6.6 % Normal 1.7-12.0 [facility] Comment on above: Performed By: #### M G, RENAL, URIC #### [facility] [address] [place] [address] Dr. Richa Cheema NEUT # 4.0 103/ul Normal 1.4-6.5 [facility] Comment on above: Performed By: #### M G, RENAL, URIC #### [facility] [address] [place] [address] Dr. Richa Cheema Neutrophils/100 WBC (Bld) 49.2 % Normal 43.0-75.0 [facility] Comment on above: Performed By: #### M G, RENAL, URIC #### [facility] [address] [place] [address] Dr. Richa Cheema Platelet mean volume (Bld) [Entitic vol] 10.9 fL Normal 9.5-13.5 [facility] Comment on above: Performed By: #### M G, RENAL, URIC #### [facility] [address] [place] [address] Dr. Richa Cheema PLT 193 103/ul Normal 150-450 [facility] Comment on above: Performed By: #### M G, RENAL, URIC #### [facility] [address] [place] [address] Dr. Richa Cheema RBC 4.09 106/ul Critically low 4.20-5.40 [facility] Comment on above: Performed By: #### M G, RENAL, URIC #### [facility] [address] [place] [address] Dr. Richa Cheema WBC 8.2 103/ul Normal 4.0-11.0 [facility] Comment on above: Performed By: #### M G, RENAL, URIC #### [facility] [address] [place] [address] Dr. Richa Cheema PROF 14(COMP METB)on 022 Albumin [Mass/Vol] 3.7 g/dL Normal 3.4-5.0 [facility] Comment on above: Performed By: #### C MP #### [facility] [address] [place] [address] Dr. Richa Cheema Albumin/Globulin [Mass ratio] 1.2 {ratio} Normal [facility] Comment on above: Performed By: #### C MP #### [facility] [address] [place] [address] Dr. Richa Cheema ALP [Catalytic activity/Vol] 105 U/L Normal 46-116 [facility] Comment on above: Performed By: #### C MP #### [facility] [address] [place] [address] Dr. Richa Cheema ALT [Catalytic activity/Vol] 18 U/L Normal 14-59 [facility] Comment on above: Performed By: #### C MP #### [facility] [address] [place] [address] Dr. Richa Cheema Anion gap [Moles/Vol] 11.4 mmol/L Normal [facility] Comment on above: Performed By: #### C MP #### [facility] [address] [place] [address] Dr. Richa Cheema AST [Catalytic activity/Vol] 12 U/L Critically low 15-37 [facility] Comment on above: Performed By: #### C MP #### [facility] [address] [place] [address] Dr. Richa Cheema Bilirubin [Mass/Vol] 0.3 mg/dL Normal 0.2-1.0 [facility] Comment on above: Performed By: #### C MP #### [facility] [address] [address] [address] Richa Cheema Calcium [Mass/Vol] 8.8 mg/dL Normal 8.5-10.1 [facility] Comment on above: Performed By: #### C MP #### [facility] [address] [address] [address] Richa Cheema Chloride [Moles/Vol] 104 mmol/L Normal 98-107 [facility] Comment on above: Performed By: #### C MP #### [facility] [address] [address] [address] Richa Cheema CO2 [Moles/Vol] 26.9 mmol/L Normal 21.0-32.0 [facility] Comment on above: Performed By: #### C MP #### [facility] [address] [address] [address] Richa Cheema Creatinine [Mass/Vol] 2.38 mg/dL Critically high 0.55-1.02 [facility] Comment on above: Performed By: #### C MP #### [facility] [address] [address] [address] Richa Cheema EGFR-AF SUDANESE 24 mL/min/1.73m2 Critically low >=60 [facility] Comment on above: Performed By: #### C MP #### [facility] [address] [address] [address] Richa Cheema EGFR-NON AF SUDANESE 20 mL/min/1.73m2 Critically low >=60 [facility] Comment on above: Performed By: #### C MP #### [facility] [address] [address] [address] Richa Cheema Globulin (S) [Mass/Vol] 3.1 g/dL Normal [facility] Comment on above: Performed By: #### C MP #### [facility] [address] [address] [address] Richa Cheema Glucose [Mass/Vol] 146 mg/dL Critically high 74-106 [facility] Comment on above: Performed By: #### C MP #### [facility] [address] [address] [address] Richa Cheema Potassium [Moles/Vol] 4.3 mmol/L Normal 3.5-5.1 [facility] Comment on above: Performed By: #### C MP #### [facility] [address] [address] [address] Richa Cheema Protein [Mass/Vol] 6.8 g/dL Normal 6.4-8.2 [facility] Comment on above: Performed By: #### C MP #### [facility] [address] [address] [address] Richa Cheema Sodium [Moles/Vol] 138 mmol/L Normal 136-145 [facility] Comment on above: Performed By: #### C MP #### [facility] [address] [address] [address] Richa Cheema Urea nitrogen [Mass/Vol] 31.0 mg/dL Critically high 7.0-18 .0 [facility] Comment on above: Performed By: #### C MP #### [facility] [address] [address] [address] Richa Cheema Urea nitrogen/Creatinine [Mass ratio] 13.0 mg/mg Normal [facility] Comment on above: Performed By: #### C MP #### [facility] [address] [address] [address] Richa Cheema PTH INTACTon 07-01-2022 PTH, Intact 93 pg/mL Critically high 15-65 [facility] Comment on above: Performed By: #### H H #### [facility] [address] [address] [address] Richa Cheema VIT D 25-OH [facility] 2021 Vitamin D, 25-Hydroxy 31.8 ng/mL Normal 30.0-100.0 [facility] Comment on above: Result Comment: Emelyn min D deficiency has been defined by the [place] [employer] and an Endocrine Society practice guideline as a level of serum 25-OH vitamin D less than 20 ng/mL (1,2). The Endocrine Society went on to further define vitamin D insufficiency as a level between 21 and 29 ng/mL (2). 1. IOM ([place] [employer]). 2010. Dietary reference intakes for calcium and D. [place]: The National Academies Press. 2. Reji MF, Caro RUSH, Margueirte MCMAHON, et al. Evaluation, treatment, and prevention of vitamin D deficiency: an [employer] Society clinical practice guideline. JCEM. 2010; 96(7):1911-30. Performed By: #### M G, RENAL, URIC #### [facility] [address] [address] [address] Richa Cheema HEMOGRAM AND PLATELon 2021 Hematocrit (Bld) [Volume fraction] 39.4 % Normal 36.0-48.0 [facility] Comment on above: Performed By: #### H H #### [facility] [address] [place] [address] Dr. Richa Cheema Hemoglobin (Bld) [Mass/Vol] 13.1 g/dL Normal 12.0-16.0 [facility] Comment on above: Performed By: #### H H #### [facility] [address] [address] [address] Richa Cheema MCH (RBC) [Entitic mass] 31.6 pg Normal 26.7-34.0 [facility] Comment on above: Performed By: #### H H #### [facility] [address] [place] [address] Dr. Richa Cheema MCHC (RBC) [Mass/Vol] 33.2 g/dL Normal 29.9-35.2 [facility] Comment on above: Performed By: #### H H #### [facility] [address] [address] [address] Richa Cheema MCV (RBC) [Entitic vol] 94.9 fL Normal 81.0-99.0 [facility] Comment on above: Performed By: #### H H #### [facility] [address] [place] [address] Dr. Richa Cheema PLT 186 103/ul Normal 150-450 [facility] Comment on above: Performed By: #### H H #### [facility] [address] [address] [address] Richa Cheema RBC 4.15 106/ul Critically low 4.20-5.40 [facility] Comment on above: Performed By: #### H H #### [facility] [address] [address] [address] Richa Cheema WBC 9.5 103/ul Normal 4.0-11.0 [facility] Comment on above: Performed By: #### H H #### [facility] [address] [place] [address] Dr. Richa Cheema MAGNESIUMon 06-30-2022 Magnesium [Mass/Vol] 1.9 mg/dL Normal 1.8-2.4 [facility] Comment on above: Performed By: #### M G, RENAL, URIC #### [facility] [address] [place] [address] Dr. Richa Cheema RENAL FUNCTION PANELon 06-30 Albumin [Mass/Vol] 3.6 g/dL Normal 3.4-5.0 [facility] Comment on above: Performed By: #### M G, RENAL, URIC #### [facility] [address] [address] [address] Richa Cheema Calcium [Mass/Vol] 8.6 mg/dL Normal 8.5-10.1 [facility] Comment on above: Performed By: #### M G, RENAL, URIC #### [facility] [address] [place] [address] Dr. Richa Cheema Chloride [Moles/Vol] 105 mmol/L Normal 98-107 [facility] Comment on above: Performed By: #### M G, RENAL, URIC #### [facility] [address] [place] [address] Dr. Richa Cheema CO2 [Moles/Vol] 25.5 mmol/L Normal 21.0-32.0 [facility] Comment on above: Performed By: #### M G, RENAL, URIC #### [facility] [address] [address] [address] Richa Cheema Creatinine [Mass/Vol] 2.19 mg/dL Critically high 0.55-1.02 [facility] Comment on above: Performed By: #### M G, RENAL, URIC #### [facility] [address] [place] [address] Dr. Richa Cheema EGFR-AF SUDANESE 26 mL/min/1.73m2 Critically low >=60 [facility] Comment on above: Performed By: #### M G, RENAL, URIC #### [facility] [address] [place] [address] Dr. Richa Cheema EGFR-NON AF SUDANESE 22 mL/min/1.73m2 Critically low >=60 [facility] Comment on above: Performed By: #### M G, RENAL, URIC #### [facility] [address] [place] [address] Dr. Richa Cheema Glucose [Mass/Vol] 156 mg/dL Critically high 74-106 [facility] Comment on above: Performed By: #### M G, RENAL, URIC #### [facility] [address] [place] [address] Dr. Richa Cheema Phosphate [Mass/Vol] 3.8 mg/dL Normal 2.6-4.7 [facility] Comment on above: Performed By: #### M G, RENAL, URIC #### [facility] [address] [place] [address] Dr. Richa Cheema Potassium [Moles/Vol] 4.7 mmol/L Normal 3.5-5.1 [facility] Comment on above: Performed By: #### M G, RENAL, URIC #### [facility] [address] [place] [address] Dr. Richa Cheema Sodium [Moles/Vol] 139 mmol/L Normal 136-145 [facility] Comment on above: Performed By: #### M G, RENAL, URIC #### [facility] [address] [place] [address] Dr. Richa Cheema Urea nitrogen [Mass/Vol] 25.0 mg/dL Critically high 7.0-18 .0 [facility] Comment on above: Performed By: #### M G, RENAL, URIC #### [facility] [address] [place] [address] Dr. Richa Cheema UA RANDOM W/MICROSCOPICon BACTERIA NONE SEEN Normal NONE SEEN [facility] Comment on above: Performed By: #### H H #### [facility] [address] [place] [address] Dr. Richa Cheema Bilirubin Ql (U) Negative Normal NEGATIVE [facility] Comment on above: Performed By: #### H H #### [facility] [address] [place] [address] Dr. Richa Cheema CAST NONE SEEN Normal NONE SEEN [facility] Comment on above: Performed By: #### H H #### [facility] [address] [place] [address] Dr. Richa Cheema Clarity (U) CLEAR Normal CLEAR [facility] Comment on above: Performed By: #### H H #### [facility] [address] [place] [address] Dr. Richa Cheema Color (U) LT. YELLOW Normal YELLOW [facility] Comment on above: Performed By: #### H H #### [facility] [address] [place] [address] Dr. Richa Cheema Crystals LM Nom (Urine sed) NONE SEEN Normal NONE SEEN [facility] Comment on above: Performed By: #### H H #### [facility] [address] [place] [address] Dr. Richa Cheema Epithelial cells LM Ql (Urine sed) FEW Abnormal NONE SEEN /RARE [facility] Comment on above: Performed By: #### H H #### [facility] [address] [place] [address] Dr. Richa Cheema Glucose Ql (U) Negative Normal NEGATIVE [facility] Comment on above: Performed By: #### H H #### [facility] [address] [place] [address] Dr. Richa Cheema Hemoglobin Ql (U) Negative Normal NEGATIVE [facility] Comment on above: Performed By: #### H H #### [facility] [address] [place] [address] Dr. Richa Cheema Ketones Ql (U) Negative Normal NEGATIVE [facility] Comment on above: Performed By: #### H H #### [facility] [address] [place] [address] Dr. Richa Cheema LEUKOCYTES Negative Normal NEGATIVE [facility] Comment on above: Performed By: #### H H #### [facility] [address] [place] [address] Dr. Richa Cheema MUCOUS NONE SEEN Normal NONE SEEN [facility] Comment on above: Performed By: #### H H #### [facility] [address] [place] [address] Dr. Richa Cheema Nitrite Ql (U) Negative Normal NEGATIVE [facility] Comment on above: Performed By: #### H H #### [facility] [address] [place] [address] Dr. Richa Cheema pH (U) 7.5 [pH] Normal 5-9 [facility] Comment on above: Performed By: #### H H #### [facility] [address] [place] [address] Dr. Richa Cheema RBC NONE SEEN Abnormal 0-2 [facility] Comment on above: Performed By: #### H H #### [facility] [address] [place] [address] Dr. Richa Cheema SPEC GRAVITY 1.015 Normal 1.005-<=1. 025 [facility] Comment on above: Performed By: #### H H #### [facility] [address] [place] [address] Dr. Richa Cheema UA PROTEIN 30 mg/dl Abnormal NEGATIVE/ TRACE [facility] Comment on above: Performed By: #### H H #### [facility] [address] [place] [address] Dr. Richa Cheema Urobilinogen Qn (U) 0.2 {Marley'U}/dL Normal 0.2 - 1. 0 [facility] Comment on above: Performed By: #### H H #### [facility] [address] [place] [address] Dr. Richa Cheema WBC NONE SEEN Normal NONE SEEN [facility] Comment on above: Performed By: #### H H #### [facility] [address] [place] [address] Dr. Richa Cheema URIC ACID SERUMon 06-30-2022 Urate [Mass/Vol] 5.4 mg/dL Normal 2.6-6.0 [facility] Comment on above: Performed By: #### M G, RENAL, URIC #### [facility] [address] [place] [address] Dr. Richa Cheema URINE T PROTEIN CREAT RATIOo n 06-30-2022 Protein (U) [Mass/Vol] 72.9 mg/dL Critically high <=12.0 [facility] Comment on above: Performed By: #### U RTPCR #### [facility] [address] [place] [address] Dr. Richa Cheema UR PROT CREAT RAT 0.90 Normal [facility] Comment on above: Performed By: #### U RTPCR #### [facility] [address] [place] [address] Dr. Richa Cheema URINE CREAT 80.68 mg/dL Normal 20.00-300. 00 [facility] Comment on above: Performed By: #### U RTPCR #### [facility] [address] [place] [address] Dr. Richa Cheema Office Visit (Cardiology)on 06-16-2022 [...] recurrence. She did have noninvasive assessment at [facility], which was negative. Couple of years [...] TabletTake 1 (more content not included)... Normal [employer] Tobacco Screening.on 022 Adult depression screening assessment No [facility] [employer] 250 DO Work Phone: Fall risk assessment a) No falls within the last year [facility] 250 DO Work Phone: Tobacco use status CP b) No [facility] steffany 250 DO Work Phone: FREE LIGHT CHAINS PLUS RATIO on 06-01-2022 Free Spiro Lt Chains,S 24.1 mg/L Critically high 3.3-19.4 [facility] Comment on above: Performed By: #### M G, RENAL, URIC #### [facility] [address] [place], [place] [address] Dr. Richa Cheema Free Lambda Lt Chains,S 17.1 mg/L Normal 5.7-26.3 [facility] Comment on above: Performed By: #### M G, RENAL, URIC #### [facility] [address] [place], [place] [address] Dr. Richa Cheema Spiro/Lambda Ratio, S 1.41 Normal 0.26-1.65 [facility] Comment on above: Performed By: #### M G, RENAL, URIC #### [facility] [address] [place], [place] [address] Dr. Richa Cheema Albumin [Mass/volume] in Ser um or PlasmaOrdered By: Claire Choi on 05-31-2022 Albumin [Mass/Vol] 3.5 g/dL 3.2-5.5 [facility] Basophils Auto (Bld) [#/Vol] Ordered By: Claire Choi on 05-31-2022 Basophils (Bld) [#/Vol] 0.1 10*3/uL 0.0-0.[address] [facility] Basophils/100 WBC Auto (Bld) Ordered By: Claire Choi on 05-31-2022 Basophils/100 WBC (Bld) 0.9 % . [facility] Blood hemoglobin measurement (mass/volume)Ordered By: Claire Choi on 05-31-2022 Hemoglobin (Bld) [Mass/Vol] 13.5 g/dL 11.8-15.[address] [facility] Blood leukocytes automated c ount (number/volume)Ordered By: Claire Choi on 05-31-2022 WBC (Bld) [#/Vol] 9.6 10*3/uL 4.5-11.0 [facility] Creatinine and Glomerular fi ltration rate.predicted panel (S/P/Bld)Ordered By: Claire Choi on 05-31-2022 Creatinine [Mass/Vol] 2.38 mg/dL 0.44-1.03 [facility] Eosinophils Auto (Bld) [#/Vo l]Ordered By: Claire Choi on 05-31-2022 Eosinophils (Bld) [#/Vol] 0.1 10*3/uL 0.0-0.[address] [facility] Eosinophils/100 WBC Auto (Bl d)Ordered By: Claire Choi on 05-31-2022 Eosinophils/100 WBC (Bld) 1.0 % . [facility] Erythrocyte distribution wid th Auto (RBC) [Ratio]Ordered By: Claire Choi on 05-31-2022 Erythrocyte distribution width (RBC) [Ratio] 13.8 % 11.9-15.[address] [facility] Estimated glomerular filtrat ion rate (GFR) non- AmericanOrdered By: Claire Choi on 05-31-2022 GFR/1.73 sq M.predicted among non-blacks MDRD (S/P/Bld) [Vol rate/Area] 20 mL/Min [facility] Globulin Calc (S) [Mass/Vol] Ordered By: Claire Choi on 05-31-2022 Globulin (S) [Mass/Vol] 2.7 g/dL [facility] Hematocrit Auto (Bld) [Volum e fraction]Ordered By: Claire Choi on 05-31-2022 Hematocrit (Bld) [Volume fraction] 41.0 % 34.0-46.[address] [facility] Laboratory - Hematology and Cell countsOrdered By: Claire Choi on 05-31-2022 Nucleated RBC/100 WBC (Bld) [Ratio] 0.1 % 0-0.[address] [facility] Lymphocytes Auto (Bld) [#/Vo l]Ordered By: Claire Choi on 05-31-2022 Lymphocytes (Bld) [#/Vol] 3.1 10*3/uL 1.00-4.[address] [facility] Lymphocytes/100 WBC Auto (Bl d)Ordered By: Claire Choi on 05-31-2022 Lymphocytes/100 WBC (Bld) 32.7 % . [facility] MCH Auto (RBC) [Entitic mass ]Ordered By: Claire Choi on 05-31-2022 MCH (RBC) [Entitic mass] 31.0 pg 24.7-34.[address] [facility] MCHC Auto (RBC) [Mass/Vol]Or dered By: Claire Choi on 05-31-2022 MCHC (RBC) [Mass/Vol] 33.0 g/dL 32.0-35.0 [facility] MCV Auto (RBC) [Entitic vol] Ordered By: Claire Choi on 05-31-2022 MCV (RBC) [Entitic vol] 94.0 fL 80-100 [facility] Monocytes Auto (Bld) [#/Vol] Ordered By: Claire Choi on 05-31-2022 Monocytes (Bld) [#/Vol] 0.6 10*3/uL 0.0-0.[address] [facility] Monocytes/100 WBC Auto (Bld) Ordered By: Claire Choi on 05-31-2022 Monocytes/100 WBC (Bld) 6.0 % . [facility] Neutrophils Auto (Bld) [#/Vo l]Ordered By: Claire Choi on 05-31-2022 Neutrophils (Bld) [#/Vol] 5.7 10*3/uL 1.8-7.[address] [facility] Neutrophils/100 WBC Auto (Bl d)Ordered By: Claire Choi on 05-31-2022 Neutrophils/100 WBC (Bld) 59.4 % . [facility] No Panel InformationOrdered By: Claire Choi on 05-31-2022 Estimated GFR () 24 mL/Min [facility] Comment on above: GFR estimated refere nce range: According to KDOQI guidelines, <60 ml/min/1.73m2 is sufficient to diagnose a patient with chronic kidney disease. Pharmacy Creatinine Clearance (Chem 20.[address] [facility] PROTEIN ELECTROPHERESISon Albumin [Mass/Vol] 3.8 g/dL Normal 2.9-4.4 [facility] Comment on above: Performed By: #### P RTELEC #### [facility] [address] [place] [address] Dr. Richa Cheema Albumin/Globulin [Mass ratio] 1.5 {ratio} Normal 0.7-1.7 [facility] Comment on above: Performed By: #### P RTELEC #### [facility] [address] [place] [address] Dr. Richa Cheema Qihue-0-Hjdqhrhh 0.2 g/dL Normal 0.0-0.4 [facility] Comment on above: Performed By: #### P RTELEC #### [facility] [address] [place] [address] Dr. Richa Cheema Smjyk-8-Bnlyzdol 0.9 g/dL Normal 0.4-1.0 [facility] Comment on above: Performed By: #### P RTELEC #### [facility] [address] [place] [address] Dr. Richa Cheema Beta Globulin 0.9 g/dL Normal 0.7-1.3 [facility] Comment on above: Performed By: #### P RTELEC #### [facility] [address] [place] [address] Dr. Richa Cheema Gamma Globulin 0.6 g/dL Normal 0.4-1.8 [facility] Comment on above: Performed By: #### P RTELEC #### [facility] [address] [place] [address] Dr. Richa Cheema Globulin (S) [Mass/Vol] 2.5 g/dL Normal 2.2-3.9 [facility] Comment on above: Performed By: #### P RTELEC #### [facility] [address] [place] [address] Dr. Richa Cheema M-Krystian Not Observed Normal Not Observed [facility] Comment on above: Performed By: #### P RTELEC #### [facility] [address] [place] [address] Dr. Richa Cheema PDF . Normal [facility] Comment on above: Performed By: #### P RTELEC #### [facility] [address] [place] [address] Dr. Richa Cheema Please note: Comment Normal [facility] Comment on above: Result Comment: Prot ein electrophoresis scan will follow via computer, mail, or gas engine mechanic delivery. Performed By: #### P RTELEC #### [facility] [address] [address] [address] Richa Cheema Protein [Mass/Vol] 6.3 g/dL Normal 6.0-8.5 [facility] Comment on above: Performed By: #### P RTELEC #### [facility] [address] [place], [place] [address] Dr. Richa Cheema Platelet mean volume Auto (B ld) [Entitic vol]Ordered By: Claire Choi on 05-31-2022 Platelet mean volume (Bld) [Entitic vol] 9.4 fL 6.3-10.[address] [facility] Platelets Auto (Bld) [#/Vol] Ordered By: Claire Choi on 05-31-2022 Platelets (Bld) [#/Vol] 254 10*3/uL 150-[address] [facility] Protein [Mass/volume] in Ser um or PlasmaOrdered By: Claire Choi on 05-31-2022 Protein [Mass/Vol] 6.2 g/dL 6.1-7.9 [facility] RBC Auto (Bld) [#/Vol]Ordere d By: Claire Choi on 05-31-2022 RBC (Bld) [#/Vol] 4.37 10*6/uL 3.60-5.00 [place] Serum or plasma alanine genao otransferase measurement without P-5'-P (enzymatic activiOrdered By: Claire Choi on 05-31-2022 ALT No additional P-5'-P [Catalytic activity/Vol] 15 U/L 10-60 [facility] Serum or plasma albumin/glob ulin mass ratioOrdered By: Claire Choi on 05-31-2022 Albumin/Globulin [Mass ratio] 1.3 {ratio} [facility] Serum or plasma alkaline bree sphatase measurement (enzymatic activity/volume)Ordered By: Claire Choi on 05-31-2022 ALP [Catalytic activity/Vol] 90 U/L 32-[address] [facility] Serum or plasma aspartate am inotransferase measurement (enzymatic activity/volume)Ordered By: Claire Choi on 05-31-2022 AST [Catalytic activity/Vol] 19 U/L 10-[address] [facility] Serum or plasma calcium leonor urement (mass/volume)Ordered By: Claire Choi on 05-31-2022 Calcium [Mass/Vol] 8.9 mg/dL 8.2-10.2 [facility] Serum or plasma chloride trinidad surement (moles/volume)Ordered By: Claire Choi on 05-31-2022 Chloride [Moles/Vol] 106 mmol/L 95-114 [facility] Serum or plasma glucose leonor urement (mass/volume)Ordered By: Claire Choi on 05-31-2022 Glucose [Mass/Vol] 151 mg/dL 70-100 [facility] Comment on above: ADA recommended refe rence range Random Glucose Reference Range is dependent on time and content of last meal. Glucose of more than 200 mg/dL in a nonstressed, ambulatory subject supports the diagnosis of Diabetes Mellitus. Serum or plasma potassium me asurement (moles/volume)Ordered By: Claire Choi on 05-31-2022 Potassium [Moles/Vol] 4.9 mmol/L 3.5-5.1 [facility] Serum or plasma sodium measu rement (moles/volume)Ordered By: Claire Choi on 05-31-2022 Sodium [Moles/Vol] 135 mmol/L 136-146 [facility] Serum or plasma total biliru bin measurement (mass/volume)Ordered By: Claire Choi on 05-31-2022 Bilirubin [Mass/Vol] 0.7 mg/dL 0.3-1.2 [facility] Serum or plasma total carbon dioxide measurement (moles/volume)Ordered By: Claire Choi on 05-31-2022 CO2 [Moles/Vol] 20.9 mmol/L 22.0-30.0 [place] Serum or plasma urea nitroge n measurement (mass/volume)Ordered By: Claire Choi on 05-31-2022 Urea nitrogen [Mass/Vol] 28 mg/dL 9-[address] [facility] CBC AUTO DIFFon 05-28-2022 BASO # 0.0 103/ul Normal 0.0-0.1 [facility] Comment on above: Performed By: #### M G, RENAL, URIC #### [facility] [address] [address] [address] Richa Cheema Basophils/100 WBC (Bld) 0.4 % Normal 0.2-2.0 [facility] Comment on above: Performed By: #### M G, RENAL, URIC #### [facility] [address] [address] [address] Richa Cheema EO # 0.1 103/ul Normal 0.0-0.7 [facility] Comment on above: Performed By: #### M G, RENAL, URIC #### [facility] [address] [place] [address] Dr. Richa Cheema Eosinophils/100 WBC (Bld) 1.2 % Normal 0.9-7.0 [facility] Comment on above: Performed By: #### M G, RENAL, URIC #### [facility] [address] [address] [address] Richa Cheema Erythrocyte distribution width (RBC) [Ratio] 13.5 % Normal 11.0-15.0 [facility] Comment on above: Performed By: #### M G, RENAL, URIC #### [facility] [address] [address] [address] Richa Cheema Hematocrit (Bld) [Volume fraction] 41.3 % Normal 36.0-48.0 [facility] Comment on above: Performed By: #### M G, RENAL, URIC #### [facility] [address] [address] [address] Richa Cheema Hemoglobin (Bld) [Mass/Vol] 13.5 g/dL Normal 12.0-16.0 [facility] Comment on above: Performed By: #### M G, RENAL, URIC #### [facility] [address] [address] [address] Richa Cheema IG # 0.02 10e3/ul Normal 0.00-0.03 [facility] Comment on above: Performed By: #### M G, RENAL, URIC #### [facility] [address] [place] [address] Dr. Richa Cheema IG % 0.2 % Normal 0.0-0.5 [facility] Comment on above: Performed By: #### M G, RENAL, URIC #### [facility] [address] [place] [address] Dr. Richa Cheema LYMPH # 2.6 103/ul Normal 1.2-3.8 [facility] Comment on above: Performed By: #### M G, RENAL, URIC #### [facility] [address] [place] [address] Dr. Richa Cheema Lymphocytes/100 WBC (Bld) 32.0 % Normal 20.5-60.0 [facility] Comment on above: Performed By: #### M G, RENAL, URIC #### [facility] [address] [place] [address] Dr. Richa Cheema MANUAL DIFF REQ NO Normal [facility] Comment on above: Performed By: #### M G, RENAL, URIC #### [facility] [address] [place] [address] Dr. Richa Cheema MCH (RBC) [Entitic mass] 31.0 pg Normal 26.7-34.0 [facility] Comment on above: Performed By: #### M G, RENAL, URIC #### [facility] [address] [place] [address] Dr. Richa Cheema MCHC (RBC) [Mass/Vol] 32.7 g/dL Normal 29.9-35.2 [facility] Comment on above: Performed By: #### M G, RENAL, URIC #### [facility] [address] [place] [address] Dr. Richa Cheema MCV (RBC) [Entitic vol] 94.7 fL Normal 81.0-99.0 [facility] Comment on above: Performed By: #### M G, RENAL, URIC #### [facility] [address] [place] [address] Dr. Richa Cheema MONO # 0.5 103/ul Normal 0.3-0.8 [facility] Comment on above: Performed By: #### M G, RENAL, URIC #### [facility] [address] [place] [address] Dr. Richa Cheema Monocytes/100 WBC (Bld) 5.7 % Normal 1.7-12.0 [facility] Comment on above: Performed By: #### M G, RENAL, URIC #### [facility] [address] [place] [address] Dr. Richa Cheema NEUT # 4.9 103/ul Normal 1.4-6.5 [facility] Comment on above: Performed By: #### M G, RENAL, URIC #### [facility] [address] [place] [address] Dr. Richa Cheema Neutrophils/100 WBC (Bld) 60.5 % Normal 43.0-75.0 [facility] Comment on above: Performed By: #### M G, RENAL, URIC #### [facility] [address] [place] [address] Dr. Richa Cheema Platelet mean volume (Bld) [Entitic vol] 10.6 fL Normal 9.5-13.5 [facility] Comment on above: Performed By: #### M G, RENAL, URIC #### [facility] [address] [place] [address] Dr. Richa Cheema PLT 229 103/ul Normal 150-450 [facility] Comment on above: Performed By: #### M G, RENAL, URIC #### [facility] [address] [place] [address] Dr. Richa Cheema RBC 4.36 106/ul Normal 4.20-5.40 [facility] Comment on above: Performed By: #### M G, RENAL, URIC #### [facility] [address] [place] [address] Dr. Richa Cheema WBC 8.1 103/ul Normal 4.0-11.0 [facility] Comment on above: Performed By: #### M G, RENAL, URIC #### [facility] [address] [place] [address] Dr. Richa Cheema GLYCOHEMOGLOBIN A1Con 2021 ADA RECOMMENDATION SEE BELOW Normal [facility] Comment on above: Result Comment: ADA RECOMMENDED LIMIT 4.0 - 6.0 ADA THERAPEUTIC TARGET < 7.0 ACTION SUGGESTED > 7.0 Performed By: #### H H #### [facility] [address] [address] [address] Richa Cheema Glucose [Mass/Vol] 166 mg/dL Normal [facility] Comment on above: Performed By: #### H H #### [facility] [address] [place] [address] Dr. Richa Cheema HbA1c (Bld) [Mass fraction] 7.4 % Critically high 4.5-6.2 [facility] Comment on above: Performed By: #### H H #### [facility] [address] [place] [address] Dr. Richa Cheema PROF 14(COMP METB)on 022 Albumin [Mass/Vol] 3.4 g/dL Normal 3.4-5.0 [facility] Comment on above: Performed By: #### M G, RENAL, URIC #### [facility] [address] [place] [address] Dr. Richa Cheema Albumin/Globulin [Mass ratio] 1.0 {ratio} Normal [facility] Comment on above: Performed By: #### M G, RENAL, URIC #### [facility] [address] [place] [address] Dr. Richa Cheema ALP [Catalytic activity/Vol] 111 U/L Normal 46-116 [facility] Comment on above: Performed By: #### M G, RENAL, URIC #### [facility] [address] [place] [address] Dr. Richa Cheema ALT [Catalytic activity/Vol] 21 U/L Normal 14-59 [facility] Comment on above: Performed By: #### M G, RENAL, URIC #### [facility] [address] [place] [address] Dr. Richa Cheema Anion gap [Moles/Vol] 14.1 mmol/L Normal [facility] Comment on above: Performed By: #### M G, RENAL, URIC #### [facility] [address] [address] [address] Richa Cheema AST [Catalytic activity/Vol] 13 U/L Critically low 15-37 [facility] Comment on above: Performed By: #### M G, RENAL, URIC #### [facility] [address] [place] [address] Dr. Richa Cheema Bilirubin [Mass/Vol] 0.3 mg/dL Normal 0.2-1.0 [facility] Comment on above: Performed By: #### M G, RENAL, URIC #### [facility] [address] [place] [address] Dr. Richa Cheema Calcium [Mass/Vol] 9.1 mg/dL Normal 8.5-10.1 [facility] Comment on above: Performed By: #### M G, RENAL, URIC #### [facility] [address] [place] [address] Dr. Richa Cheema Chloride [Moles/Vol] 107 mmol/L Normal 98-107 [facility] Comment on above: Performed By: #### M G, RENAL, URIC #### [facility] [address] [place] [address] Dr. Richa Cheema CO2 [Moles/Vol] 23.7 mmol/L Normal 21.0-32.0 [facility] Comment on above: Performed By: #### M G, RENAL, URIC #### [facility] [address] [place] [address] Dr. Richa Cheema Creatinine [Mass/Vol] 2.56 mg/dL Critically high 0.55-1.02 [facility] Comment on above: Performed By: #### M G, RENAL, URIC #### [facility] [address] [place] [address] Dr. Richa Cheema EGFR-AF SUDANESE 22 mL/min/1.73m2 Critically low >=60 [facility] Comment on above: Performed By: #### M G, RENAL, URIC #### [facility] [address] [address] [address] Richa Cheema EGFR-NON AF SUDANESE 18 mL/min/1.73m2 Critically low >=60 [facility] Comment on above: Performed By: #### M G, RENAL, URIC #### [facility] [address] [address] [address] Richa Cheema Globulin (S) [Mass/Vol] 3.4 g/dL Normal [facility] Comment on above: Performed By: #### M G, RENAL, URIC #### [facility] [address] [place] [address] Dr. Richa Cheema Glucose [Mass/Vol] 211 mg/dL Critically high 74-106 [facility] Comment on above: Performed By: #### M G, RENAL, URIC #### [facility] [address] [place] [address] Dr. Richa Cheema Potassium [Moles/Vol] 4.8 mmol/L Normal 3.5-5.1 [facility] Comment on above: Performed By: #### M G, RENAL, URIC #### [facility] [address] [place] [address] Dr. Richa Cheema Protein [Mass/Vol] 6.8 g/dL Normal 6.4-8.2 [facility] Comment on above: Performed By: #### M G, RENAL, URIC #### [facility] [address] [place] [address] Dr. Richa Cheema Sodium [Moles/Vol] 140 mmol/L Normal 136-145 [facility] Comment on above: Performed By: #### M G, RENAL, URIC #### [facility] [address] [address] [address] Richa Cheema Urea nitrogen [Mass/Vol] 29.0 mg/dL Critically high 7.0-18 .0 [facility] Comment on above: Performed By: #### M G, RENAL, URIC #### [facility] [address] [place] [address] Dr. Richa Cheema Urea nitrogen/Creatinine [Mass ratio] 11.3 mg/mg Normal [facility] Comment on above: Performed By: #### M G, RENAL, URIC #### [facility] [address] [place], [place] [address] Dr. Richa Cheema Covid-19 PCR ([facility])on SARS-CoV-2 (COVID-19) RNA RADHA+probe Ql (Unsp spec) Detected Critically abnormal NOT DETECTED [facility] Comment on above: Result Comment: This test is not yet approved or cleared by the [place] FDA. When there are no FDA-approved or cleared tests available, and other criteria are met, FDA can make tests available under an emergency access mechanism called an Emergency Use Authorization (EUA). The EUA for this test is supported by the Senior Advisory of Health and Human Service's (HHS's) declaration [...] used). Performed By: #### C VDTBH #### [facility] [address] [place], [place] [address] Dr. Richa Cheema XR LSPINE MIN 4 [...] DIANN IBANEZ Date: 2022-04-14 11:25 Normal [facility] CT HEAD WO CONon 04-07-2022 CT [...] DIANN IBANEZ Date: 2022-04-07 15:47 Normal [facility] - Chemistry and C hemistry - challengeOrdered By: Akin Suarez on 09-07-2021 Magnesium [Mass/Vol] 2.0 mg/dL 1.6-2.6 [facility] No Panel InformationOrdered By: Akin Suarez on 09-07-2021 25-Hydroxy Vitamin D Total 38.5 ng/mL 30-[address] [facility] Comment on above: VITAMIN D STATUS 25( [...] on 09-07-2021 Phosphate [Mass/Vol] 3.7 mg/dL 2.5-4.6 [facility] Serum or plasma intact parat hyroid hormone measurement (mass/volume)Ordered By: Akin Suarez on 09-07-2021 Parathyrin.intact [Mass/Vol] 137.7 pg/mL High 12-[address] [facility] Serum or plasma uric acid me asurement (mass/volume)Ordered By: Akin Suarez on 09-07-2021 Urate [Mass/Vol] 4.8 mg/dL 2.6-7.2 [place] Tobacco Screening.on 021 Fall risk assessment a) No falls within the last year [facility] [employer] steffany 250 DO Work Phone: Tobacco use status CPHS b) No [facility] [employer] 250 DO Work Phone: CT biopsyOrdered By: Mike sweet on 06-09-2021 CT biopsy [address] [facility] IgA [Mass/volume] in Serum o r PlasmaOrdered By: Mike Bradley on 06-09-2021 IgA [Mass/Vol] 65 mg/dL 64-[address] [facility] IgG [Mass/volume] in Serum o r PlasmaOrdered By: Mike Bradley on 06-09-2021 IgG [Mass/Vol] 654 mg/dL 586-[address] [facility] IgM [Mass/volume] in Serum o r PlasmaOrdered By: Mike Bradley on 06-09-2021 IgM [Mass/Vol] 23 mg/dL 26-[address] [facility] Comment on above: Result confirmed on concentration. Performed at: [facility] [address] [place], [place] [id number] [employer] Supervisor: Elpidio Delgado PhD, Phone: [phone] Result confirmed on concentration.Performed at: [facility] [id number] Director: Elpidio Delgado PhD, Phone: [phone] Immunofixation for UrineOrde red By: Mike Bradley on 06-09-2021 Interpretation Immunofixation (U) [Interp] See comment Abnormal . [facility] Comment on above: Bence Jenkins Protein positive; kappa type. Performed at: - [facility] [address] [place], [place] [id number] Coffee Supervisor: Elpidio Delgado PhD, Phone: [phone] Bence Jenkins Protein positive; kappa type.Performed at: [facility] [place], [place] [id number] Director: Elpidio Delgado PhD, Phone: [phone] No Panel InformationOrdered By: Mike Bradley on 06-09-2021 Serum Immunofixation See comment . [facility] Comment on above: Immunofixation shows IgG monoclonal protein with kappa light chain specificity. Please note that samples from patients receiving DARZALEX(R) (daratumumab) treatment can appear as an IgG kappa and mask a complete response. If this patient is receiving IRMA, this HAILEE assay interference can be removed by ordering test number [id number]- Immunofixation, Daratumumab- Specific, Serum and submitting a [...] interference can be removedby ordering test number [id number]- Immunofixation, Daratumumab-Specific, Serum and submitting a new sample for testing orby calling the lab to add this test to the current sample. Urine Albumin 24 Hours 33.2 % . [facility] Urine Ojqnm-1-Ixpqkaqb 4.3 % . [facility] Urine Iagct-5-Azfugjkbt 16.0 % . [facility] Urine Beta Globulin 36.7 % . [place] Urine Gamma Globulin 9.8 % . [facility] Urine IEP M-Krystian % 24 Hr 21.1 % High Not Observed [facility] Urine Random Prot Electrophor Note See comment . [facility] Comment on above: Protein electrophore sis scan will follow via computer, mail, or gas engine mechanic delivery. Protein electrophore sis scan will follow via computer,mail, or gas engine mechanic delivery. Protein [Mass/time] in 24 ho ur UrineOrdered By: Mike Bradley on 06-09-2021 Protein (24H U) [Mass/Time] 125 mg/24 hr 30-[address] [facility] Protein [Mass/volume] in Uri neOrdered By: Mike Bradley on 06-09-2021 Protein (U) [Mass/Vol] 8.5 mg/dL Not Estab. Fi [facility] Protein.monoclonal [Mass/junaid e] in 24 hour Urine by ElectrophoresisOrdered By: Mike Bradley on 06-09-2021 Protein.monoclonal Elph (24H U) [Mass/Time] 26.5 mg/24 hr High Not Observed [facility] Urine volume measurementOrde red By: Mike Bradley on 06-09-2021 Specimen volume (U) 1475 ml [place] Urine culture routineon 02-12 Bacteria identified Cx Nom (U) Pseudomonas aeruginosa [facility] Automated epithelial cells c ount in urine sediment (number/area)on 02-24-2021 Epithelial cells Auto (Urine sed) [#/Area] 0-1 [HPF] 0-[address] [facility] Automated erythrocytes count in urine sediment (number/area)on 02-24-2021 RBC Auto (Urine sed) [#/Area] Innumerable [HPF] 0-[address] [facility] Automated leukocytes count i n urine sediment (number/area)on 02-24-2021 WBC Auto (Urine sed) [#/Area] 0-1 [HPF] 0-[address] [facility] Automated urine specific gra vity by refractometryon 02-24-2021 Specific gravity Refractometry automated (U) [Rel density] 1.009 1.001-1.[address] [facility] Comment on above: Rechecked by refract ometer Bilirubin Test strip Ql (U)o n 02-24-2021 Bilirubin Ql (U) See comment Negative [facility] Comment on above: Unable to obtain acc urate result due to color interference. Color Auto (U)on 02-24-2021 Color (U) Red Yellow [facility] Creatinine [Mass/volume] in Urineon 02-24-2021 Creatinine (U) [Mass/Vol] 77.2 mg/dL [facility] Comment on above: No reference range e stablished Ketones Auto test strip (U) [Mass/Vol]on 02-24-2021 Ketones (U) [Mass/Vol] See comment Negative [facility] Comment on above: Unable to obtain acc urate result due to color interference. Nitrite Test strip Ql (U)on 02-24-2021 Nitrite Ql (U) See comment Negative [facility] Comment on above: Unable to obtain acc urate result due to color interference. Protein Auto test strip (U) [Mass/Vol]on 02-24-2021 Protein (U) [Mass/Vol] See comment Negative [facility] Comment on above: Unable to obtain acc urate result due to color interference. Urine bacteria detection by automated methodon 02-24-2021 Bacteria Auto Ql (U) None seen None Seen [facility] Urine clarity by refractomet ry automatedon 02-24-2021 Clarity Refractometry automated (U) Turbid Clear [facility] Urine culture routineon 02-12 Bacteria identified Cx Nom (U) Pseudomonas aeruginosa Abnormal [facility] Bacteria identified Cx Nom (U) Pseudomonas aeruginosa Abnormal [facility] Urine glucose measurement by automated test strip (mass/volume)on 02-24-2021 Glucose Auto test strip (U) [Mass/Vol] See comment Normal [facility] Comment on above: Unable to obtain acc urate result due to color interference. Urine hemoglobin detection b y automated test stripon 02-24-2021 Hemoglobin Auto test strip Ql (U) See comment Negative [facility] Comment on above: Unable to obtain acc urate result due to color interference. Urine leukocyte esterase det ection by automated test stripon 02-24-2021 Leukocyte esterase Auto test strip Ql (U) See comment Negative [facility] Comment on above: Unable to obtain acc urate result due to color interference. Urine protein/creatinine rat ioon 02-24-2021 Protein/Creatinine (U) [Ratio] 2098 mg/g{Cre} High 0-[address] [facility] Urobilinogen Auto test strip (U) [Mass/Vol]on 02-24-2021 Urobilinogen (U) [Mass/Vol] See comment Normal [facility] Comment on above: Unable to obtain acc urate result due to color interference. pH Auto test strip (U)on pH (U) See comment 5.0-9.[address] [facility] Comment on above: Unable to obtain acc urate result due to color interference. Laboratory - Chemistry and C hemistry - challengeon 10-28-2020 Cobalamin (Vitamin B12) [Mass/Vol] 506 pg/mL 180-[address] [facility] Laboratory - Hematology and Cell countson 10-28-2020 WBC (Bld) [#/Vol] 10.0 10*3/uL 4.5-11.0 [place] [facility] - Urinalysison Hyaline casts LM Ql (Urine sed) 0-8 [LPF] 0-[address] [facility] Urine culture routineon Bacteria identified Cx Nom (U) bacilli - [address] [facility] Serum intrinsic factor block ing antibody detection by radioimmunoassay (MAGGIE)on 02-28-2019 Intrinsic factor blocking Ab MAGGIE Ql (S) 0.9 AU/mL 0.0-1.[address] [facility] Comment on above: Performed at: [facility] [address] [id number] Coffee Supervisor: Britton Valente MD, Phone: [phone] Performed at: [facility] [address] [id number] Director: Britton Valente MD, Phone: [phone] Serum parietal cell antibody assay (units/volume)on 02-28-2019 Parietal cell Ab Qn (S) 1.9 Units 0.0-20.0 [facility] Comment on above: Negative 0.0 - 20.0 Equivocal 20.1 - 24.9 Positive >24.9 Parietal Cell Antibodies are found in 90% of patients with pernicious anemia and 30% of first degree relatives with pernicious anemia. Performed at: [facility] [id number] Coffee Supervisor: Elpidio Delgado PhD, Phone: [phone] Negative 0.0 - 20.0 Equivocal 20.1 - 24.9 Positive >24.9Parietal Cell Antibodies are found in 90% of patientswith pernicious anemia and 30% of first degreerelatives with pernicious anemia.Performed at: [facility] [address] [id number] Director: Elpidio Delgado PhD, Phone: [phone] Glucose Glucometer (BldC) [M ass/Vol]on 01-02-2019 Glucose [Mass/Vol] 133 mg/dL [facility] Comment on above: Random Glucose Refer ence Range is dependent on time and content of last meal. Glucose of more than 200 mg/dL in a nonstressed, ambulatory subject supports the diagnosis of Diabetes Mellitus. Glucose mean value [Mass/vol ume] in Blood Estimated from glycated hemoglobinon 01-02-2019 Average glucose Estimated from glycated hemoglobin (Bld) [Mass/Vol] 183 mg/dL [facility] HbA1c (Bld)on 01-02-2019 HbA1c (Bld) [Mass fraction] 8.0 % 4.3-5.[address] [facility] Comment on above: Increased risk for d iabetes: 5.7 - 6.4 diabetes: >6.4 glycemic control for adults with diabetes: <7.0 Increased risk for d iabetes: 5.7 - 6.4diabetes: >6.4glycemic control for adults with diabetes: <7.0 IgA [Mass/volume] in Serum o r Plasmaon 10-13-2018 IgA [Mass/Vol] 65 mg/dL 64-[address] [facility] IgG [Mass/volume] in Serum o r Plasmaon 10-13-2018 IgG [Mass/Vol] 487 mg/dL Low 700-[address] [facility] IgM [Mass/volume] in Serum o r Plasmaon 10-13-2018 IgM [Mass/Vol] 38 mg/dL 26-[address] [facility] Comment on above: Performed at: [facility] [place] [address] [place], [place] [id number] Coffee Supervisor: Elpidio Delgado PhD, Phone: [phone] Performed at: [facility] [address] [id number] Director: Elpidio Delgado PhD, Phone: [phone] Serum or plasma 25-hydroxyca lciferol measurement (mass/volume)on 09-15-2017 25-hydroxyvitamin D2 [Mass/Vol] <1.0 ng/mL . [facility] Serum or plasma calcidiol me asurement (mass/volume)on 09-15-2017 25-hydroxyvitamin D3 [Mass/Vol] 65 ng/mL . [facility] Comment on above: Performed at: [facility] [address] [place], [place] [id number] Coffee Supervisor: Marcelino Estes MD, Phone: [phone] Performed at: [facility] [place], [place] [id number] Director: Marcelino Estes MD, Phone: [phone] Vital Signs Date Time Vital Sign Value Performing Clinician Facility 09-19-2024 15:07-0500 Body height 167.64 cm MD Curt Clark Work Phone: [facility] 09-19-2024 11:38-0500 Body temperature 98 [degF] MD Curt Clark Work Phone: [facility] 09-19-2024 11:38-0500 Diastolic blood pressure 76 mm[Hg] MD Curt Clark Work Phone: [facility] 09-19-2024 11:38-0500 Heart rate 86 /min MD Curt Clark Work Phone: [facility] 09-19-2024 11:38-0500 SaO2% (BldA) [Mass fraction] 98 % MD Curt Clark Work Phone: [facility] 09-19-2024 11:38-0500 Systolic blood pressure 128 mm[Hg] MD Curt Clark Work Phone: [facility] 09-19-2024 07:31-0500 Respiratory rate 20 /min MD Curt Clark Work Phone: [facility] 09-19-2024 05:34-0500 Body weight 90.3 kg MD Curt Clark Work Phone: [facility] 09-18-2024 00:38-0500 Diastolic blood pressure 57 mm[Hg] MD Curt Clark Work Phone: [facility] 09-18-2024 00:38-0500 Heart rate 90 /min MD Curt Clark Work Phone: [facility] 09-18-2024 00:38-0500 Respiratory rate 20 /min MD Curt Clark Work Phone: [facility] 09-18-2024 00:38-0500 SaO2% (BldA) [Mass fraction] 96 % MD Curt Clark Work Phone: [facility] 09-18-2024 00:38-0500 Systolic blood pressure 131 mm[Hg] MD Curt Clark Work Phone: [facility] 09-17-2024 20:43-0500 Body height 167.64 cm MD Curt Clark Work Phone: [facility] 09-17-2024 20:43-0500 Body temperature 98.2 [degF] MD Curt Clark Work Phone: [facility] 09-17-2024 20:43-0500 Body weight 89.25 kg MD Curt Clark Work Phone: [facility] 08-20-2024 10:48-0400 Body mass index (BMI) [Ratio] 31 kg/m2 MD Curt Clark Work Phone: [facility] 08-20-2024 10:48-0400 Diastolic blood pressure 68 mm[Hg] MD Curt Clark Work Phone: [facility] 08-20-2024 10:48-0400 Systolic blood pressure 164 mm[Hg] MD Curt Clark Work Phone: [facility] 08-20-2024 10:25-0400 Body height 171.45 cm MD Curt Clark Work Phone: [facility] 08-20-2024 10:25-0400 Body weight 91.22 kg MD Curt Clark Work Phone: [facility] 08-20-2024 10:25-0400 Heart rate 70 /min MD Curt Clark Work Phone: [facility] 08-20-2024 10:25-0400 Respiratory rate 16 /min MD Curt Clark Work Phone: [facility] 08-20-2024 10:25-0400 SaO2% (BldA) [Mass fraction] 97 % MD Curt Clark Work Phone: [facility] 08-17-2024 15:22-0400 Body height 172.09 cm MD Curt Clark Work Phone: [facility] 08-17-2024 15:22-0400 Body mass index (BMI) [Ratio] 30.6 kg/m2 MD Curt Clark Work Phone: [facility] 08-17-2024 15:22-0400 Body temperature 98.2 [degF] MD Curt Clark Work Phone: [facility] 08-17-2024 15:22-0400 Body weight 90.71 kg MD Curt Clark Work Phone: [facility] 08-17-2024 15:22-0400 Diastolic blood pressure 76 mm[Hg] MD Curt Clark Work Phone: [facility] 08-17-2024 15:22-0400 Heart rate 78 /min MD Curt Clark Work Phone: [facility] [facility] 08-17-2024 15:22-0400 Respiratory rate 20 /min MD Curt Clark Work Phone: [facility] 08-17-2024 15:22-0400 SaO2% (BldA) [Mass fraction] 97 % MD Curt Clark Work Phone: [facility] 08-17-2024 15:22-0400 Systolic blood pressure 180 mm[Hg] MD Curt Clark Work Phone: [facility] 07-05-2024 13:06-0400 Body height 172.09 cm MD Curt Clark Work Phone: [facility] 07-05-2024 13:06-0400 Body mass index (BMI) [Ratio] 30.3 kg/m2 MD Curt Clark Work Phone: [facility] 07-05-2024 13:06-0400 Body temperature 96.9 [degF] MD Curt Clark Work Phone: [facility] 07-05-2024 13:06-0400 Body weight 89.81 kg MD Curt Clark Work Phone: [facility] 07-05-2024 13:06-0400 Diastolic blood pressure 84 mm[Hg] MD Curt Clark Work Phone: [facility] 07-05-2024 13:06-0400 Heart rate 79 /min MD Curt Clark Work Phone: [facility] 07-05-2024 13:06-0400 Respiratory rate 16 /min MD Curt Clark Work Phone: [facility] 07-05-2024 13:06-0400 SaO2% (BldA) [Mass fraction] 97 % MD Curt Clark Work Phone: [facility] 07-05-2024 13:06-0400 Systolic blood pressure 139 mm[Hg] MD Curt Clark Work Phone: [facility] 05-31-2024 11:10-0400 Body height 172.09 cm MD Curt Clark Work Phone: [facility] 05-31-2024 11:10-0400 Body mass index (BMI) [Ratio] 67.1 kg/m2 MD Curt Clark Work Phone: [facility] 05-31-2024 11:10-0400 Body mass index (BMI) [Ratio] 30.3 kg/m2 MD Curt Clark Work Phone: [facility] 05-31-2024 11:10-0400 Body weight 199 kg MD Curt Clark Work Phone: [facility] 05-31-2024 11:10-0400 Body weight 89.81 kg MD Curt Clark Work Phone: [facility] 05-31-2024 11:10-0400 Diastolic blood pressure 63 mm[Hg] MD Curt Clark Work Phone: [facility] 05-31-2024 11:10-0400 Heart rate 68 /min MD Curt Clark Work Phone: [facility] 05-31-2024 11:10-0400 Systolic blood pressure 151 mm[Hg] MD Curt Clark Work Phone: [facility] 04-17-2024 13:55-0400 Body height 162.6 cm Elicia Rhodes MD Work Phone: [facility] 04-17-2024 13:55-0400 Body mass index (BMI) [Ratio] 34.33 kg/m2 Elicia Rhodes MD Work Phone: [facility] 04-17-2024 13:55-0400 Body weight 90.72 kg Elicia Rhodes MD Work Phone: [facility] 04-17-2024 13:55-0400 Diastolic blood pressure 66 mm[Hg] Elicia Rhodes MD Work Phone: [facility] 04-17-2024 13:55-0400 Heart rate 68 /min Elicia Rhodes MD Work Phone: [facility] 04-17-2024 13:55-0400 Systolic blood pressure 128 mm[Hg] Elicia Rhodes MD Work Phone: [facility] 04-12-2024 09:27-0400 Body height 172.09 cm MD Curt Clark Work Phone: [facility] 04-12-2024 09:27-0400 Body mass index (BMI) [Ratio] 30.4 kg/m2 MD Curt Clark Work Phone: [facility] 04-12-2024 09:27-0400 Body weight 90.03 kg MD Curt Clark Work Phone: [facility] 04-12-2024 09:27-0400 Diastolic blood pressure 77 mm[Hg] MD Curt Clark Work Phone: [facility] 04-12-2024 09:27-0400 Heart rate 65 /min MD Curt Clark Work Phone: [facility] 04-12-2024 09:27-0400 Systolic blood pressure 166 mm[Hg] MD Curt Clark Work Phone: [facility] 01-27-2024 15:01-0400 Body temperature 97.8 [degF] MD Curt Clark Work Phone: [facility] 01-27-2024 15:01-0400 Body weight 90.71 kg MD Curt Clark Work Phone: [facility] 01-27-2024 15:01-0400 Diastolic blood pressure 76 mm[Hg] MD Curt Clark Work Phone: [facility] 01-27-2024 15:01-0400 Heart rate 64 /min MD Curt Clark Work Phone: [facility] 01-27-2024 15:01-0400 Respiratory rate 16 /min MD Curt Clark Work Phone: [facility] 01-27-2024 15:01-0400 SaO2% (BldA) [Mass fraction] 99 % MD Curt Clark Work Phone: [facility] 01-27-2024 15:01-0400 Systolic blood pressure 140 mm[Hg] MD Curt Clark Work Phone: [facility] 01-04-2024 10:59-0500 Body height 167 cm MD Curt Clark Work Phone: [facility] 01-04-2024 10:59-0500 Body mass index (BMI) [Ratio] 32.5 kg/m2 MD Cutr Clark Work Phone: [facility] 01-04-2024 10:59-0500 Body weight 90.88 kg MD Curt Clark Work Phone: [facility] 01-04-2024 10:59-0500 Diastolic blood pressure 77 mm[Hg] MD Curt Clark Work Phone: [facility] 01-04-2024 10:59-0500 Heart rate 71 /min MD Curt Clark Work Phone: [facility] 01-04-2024 10:59-0500 Respiratory rate 18 /min MD Curt Clark Work Phone: [facility] 01-04-2024 10:59-0500 SaO2% (BldA) [Mass fraction] 98 % MD Curt Clark Work Phone: [facility] 01-04-2024 10:59-0500 Systolic blood pressure 133 mm[Hg] MD Curt Clark Work Phone: [facility] 12-01-2023 11:00-0500 Body height 166.55 cm Curt Clark Other [facility] 12-01-2023 11:00-0500 Body mass index (BMI) [Ratio] 32.77 kg/m2 Curt Clark Other [facility] [employer] Other 12-01-2023 11:00-0500 Body weight 90.9 kg Curt Clark Other [facility] [employer] Other 12-01-2023 11:00-0500 Body weight 90.89 kg MD Curt Clark Work Phone: [facility] 12-01-2023 11:00-0500 Diastolic blood pressure 76 mm[Hg] Curt Clark Other [facility] 12-01-2023 11:00-0500 Systolic blood pressure 125 mm[Hg] Curt Clark Other [facility] 11-02-2023 10:34-0500 Body height 162.[address] 11-02-2023 10:34-0500 Body mass index (BMI) [Ratio] 33.3 kg/m2 [address] 11-02-2023 10:34-0500 Body weight [address] 11-02-2023 10:34-0500 Diastolic blood pressure 74 mm[Hg] [address] 11-02-2023 10:34-0500 Systolic blood pressure 140 mm[Hg] [address] 10-04-2023 14:04-0500 Body height 167.6 cm Elicia Rhodes MD Work Phone: [facility] 10-04-2023 14:04-0500 Body mass index (BMI) [Ratio] 31.31 kg/m2 Elicia Rhodes MD Work Phone: [facility] 10-04-2023 14:04-0500 Body weight 88 kg Elicia Rhodes MD Work Phone: [facility] 10-04-2023 14:04-0500 Diastolic blood pressure 68 mm[Hg] Elicia Rhodes MD Work Phone: [facility] 10-04-2023 14:04-0500 Heart rate 72 /min Elicia Rhodes MD Work Phone: [facility] 10-04-2023 14:04-0500 Systolic blood pressure 138 mm[Hg] Elicia Rhodes MD Work Phone: [facility] 09-26-2023 14:00-0500 Body height 166.55 cm Curt Clark Other [employer] Other 09-26-2023 14:00-0500 Body mass index (BMI) [Ratio] 31.43 kg/m2 Curt Clark Other [employer] Other 09-26-2023 14:00-0500 Body weight 87.18 kg Curt Clark Other [employer] Other 09-26-2023 14:00-0500 Diastolic blood pressure 73 mm[Hg] Curt Clark Other [employer] Other 09-26-2023 14:00-0500 SaO2% (BldA) [Mass fraction] 98 % Curt Clark Other [employer] Other 09-26-2023 14:00-0500 Systolic blood pressure 122 mm[Hg] Curt Clark Other [employer] Other 09-13-2023 15:45-0400 Body height 166.55 cm Curt Clark Other [employer] Other 09-13-2023 15:45-0400 Body mass index (BMI) [Ratio] 31.39 kg/m2 Curt Clark Other [employer] Other 09-13-2023 15:45-0400 Body temperature 97.1 [degF] Curt Clark Other [employer] Other 09-13-2023 15:45-0400 Body weight 87.09 kg Curt Clark Other [employer] Other 09-13-2023 15:45-0400 Diastolic blood pressure 75 mm[Hg] Curt Clark Other [employer] Other 09-13-2023 15:45-0400 Systolic blood pressure 148 mm[Hg] Curt Clark Other [facility] [employer] Other 08-31-2023 13:30-0400 Body height 166.55 cm Nehemias Fernandez II Other [employer] Other 08-31-2023 13:30-0400 Body mass index (BMI) [Ratio] 31.56 kg/m2 Nehemias Fernandez II Other [employer] Other 08-31-2023 13:30-0400 Body weight 87.54 kg Nehemias Fernandez II Other [employer] Other 07-19-2023 10:44-0400 Body height 167.64 cm MD Curt Clark Work Phone: [facility] 07-19-2023 10:40-0400 Body temperature 97.5 [degF] MD Curt Clark Work Phone: [facility] 07-19-2023 10:40-0400 Body weight 85.95 kg MD Curt Clark Work Phone: [facility] 07-19-2023 10:40-0400 Diastolic blood pressure 69 mm[Hg] MD Curt Clark Work Phone: [facility] 07-19-2023 10:40-0400 Heart rate 79 /min MD Curt Clark Work Phone: [facility] 07-19-2023 10:40-0400 Respiratory rate 20 /min MD Curt Clark Work Phone: [facility] 07-19-2023 10:40-0400 SaO2% (BldA) [Mass fraction] 98 % MD Curt lCark Work Phone: [facility] 07-19-2023 10:40-0400 Systolic blood pressure 134 mm[Hg] MD Curt Clark Work Phone: [facility] 06-24-2023 13:30-0400 Body height 166.55 cm Curt Clark Other [employer] Other 06-24-2023 13:30-0400 Body mass index (BMI) [Ratio] 30.58 kg/m2 Curt Clark Other [employer] Other 06-24-2023 13:30-0400 Body weight 84.82 kg Curt Clark Other [employer] Other 06-24-2023 13:30-0400 Diastolic blood pressure 79 mm[Hg] Curt Clark Other [employer] Other 06-24-2023 13:30-0400 SaO2% (BldA) [Mass fraction] 97 % Curt Clark Other [employer] Other 06-24-2023 13:30-0400 Systolic blood pressure 127 mm[Hg] Curt Clark Other [employer] Other 06-23-2023 11:20-0400 Body height 166.55 cm Akin Lopez Other [employer] Other 06-23-2023 11:20-0400 Body temperature 96.5 [degF] Akin Lopez Other [employer] Other 06-23-2023 11:20-0400 Diastolic blood pressure 82 mm[Hg] Akin Lopez Other [employer] Other 06-23-2023 11:20-0400 Respiratory rate 20 /min Akin Lopez Other [employer] Other 06-23-2023 11:20-0400 SaO2% (BldA) [Mass fraction] 98 % Akin Lopez Other [employer] Other 06-23-2023 11:20-0400 Systolic blood pressure 149 mm[Hg] Akin Lopez Other [employer] Other 04-26-2023 11:30-0400 Body height 166.37 cm Curt Clark Other [employer] Other 04-26-2023 11:30-0400 Body mass index (BMI) [Ratio] 31.13 kg/m2 Curt Clark Other [employer] Other 04-26-2023 11:30-0400 Body weight 86.18 kg Curt Clark Other [employer] Other 04-26-2023 11:30-0400 Diastolic blood pressure 68 mm[Hg] Curt Clark Other [employer] Other 04-26-2023 11:30-0400 Systolic blood pressure 109 mm[Hg] Curt Clark Other [employer] Other 03-23-2023 14:10-0400 Body height 167.64 cm Curt Clark Work Phone: [employer] DO Work Phone: 03-23-2023 14:10-0400 Body mass index (BMI) [Ratio] 31.15 kg/m2 Curt Clark Work Phone: [employer] DO Work Phone: 03-23-2023 14:10-0400 Body surface area Derived from formula 1.97 m2 Curt Clark Work Phone: [facility] [employer] 250 DO Work Phone: 03-23-2023 14:10-0400 Body weight 87.54 kg Curt Clark Work Phone: [facility] [employer] 250 DO Work Phone: 03-23-2023 14:10-0400 Diastolic blood pressure 68 mm[Hg] Curt Clark Work Phone: [facility] [employer] 250 DO Work Phone: 03-23-2023 14:10-0400 Heart rate 68 /min Curt Clark Work Phone: [facility] [employer] 250 DO Work Phone: 03-23-2023 14:10-0400 Systolic blood pressure 102 mm[Hg] Curt Clark Work Phone: [facility] [employer] 250 DO Work Phone: 03-15-2023 12:00-0400 Body height 166.37 cm Curt Clark Other [facility] [employer] Other 03-15-2023 12:00-0400 Body mass index (BMI) [Ratio] 31.95 kg/m2 Curt Clark Other [facility] [employer] Other 03-15-2023 12:00-0400 Body weight 88.45 kg Curt Clark Other [facility] [employer] Other 03-15-2023 12:00-0400 Diastolic blood pressure 60 mm[Hg] Curt Clark Other [employer] Other 03-15-2023 12:00-0400 Systolic blood pressure 124 mm[Hg] Curt Clark Other [employer] Other 02-21-2023 11:06-0400 75.6 1 Curt Clark Work Phone: [facility] 250 DO Work Phone: Comment on above: [facility] 01-11-2023 10:37-0500 Body temperature 97.8 [degF] MD Curt Clark Work Phone: [facility] 01-11-2023 10:37-0500 Body weight 88.2 kg MD Curt Clark Work Phone: [facility] 01-11-2023 10:37-0500 Diastolic blood pressure 63 mm[Hg] MD Curt Clark Work Phone: [facility] 01-11-2023 10:37-0500 Heart rate 66 /min MD Curt Clark Work Phone: [facility] 01-11-2023 10:37-0500 Respiratory rate 16 /min MD Curt Clark Work Phone: [facility] 01-11-2023 10:37-0500 SaO2% (BldA) [Mass fraction] 97 % MD Curt Clark Work Phone: [facility] 01-11-2023 10:37-0500 Systolic blood pressure 139 mm[Hg] MD Curt Clark Work Phone: [facility] 01-10-2023 11:11-0500 Blood Pressure Location Tyree PARK [facility] 01-10-2023 11:11-0500 Diastolic blood pressure 84 mm[Hg] Tyree PARK [facility] 01-10-2023 11:11-0500 Heart rate 80 /min Tyree PARK [facility] 01-10-2023 11:11-0500 Respiratory rate 16 /min Tyree PARK [facility] 01-10-2023 11:11-0500 Systolic blood pressure 136 mm[Hg] Tyree PARK [facility] 12-22-2022 12:40-0500 Body height 166.37 cm Akin Lopez Other [employer] Other 12-22-2022 12:40-0500 Body mass index (BMI) [Ratio] 31.53 kg/m2 Akin Lopez Other [employer] Other 12-22-2022 12:40-0500 Body temperature 96.5 [degF] Akin Lopez Other [employer] Other 12-22-2022 12:40-0500 Body weight 87.27 kg Akin Lopez Other [employer] Other 12-22-2022 12:40-0500 Diastolic blood pressure 78 mm[Hg] Akin Lopez Other [employer] Other 12-22-2022 12:40-0500 Respiratory rate 18 /min Akin Lopez Other [employer] Other 12-22-2022 12:40-0500 SaO2% (BldA) [Mass fraction] 98 % Akin Lopez Other [employer] Other 12-22-2022 12:40-0500 Systolic blood pressure 122 mm[Hg] Akin Lopez Other [employer] Other 12-09-2022 11:45-0500 Body height 166.37 cm Curt Clark Other [employer] Other 12-09-2022 11:45-0500 Body mass index (BMI) [Ratio] 31.95 kg/m2 Curt Clark Other [employer] Other 12-09-2022 11:45-0500 Body weight 88.45 kg Curt Clark Other [employer] Other 12-09-2022 11:45-0500 Diastolic blood pressure 62 mm[Hg] Curt Clark Other [employer] Other 12-09-2022 11:45-0500 SaO2% (BldA) [Mass fraction] 96 % Curt Clark Other [employer] Other 12-09-2022 11:45-0500 Systolic blood pressure 128 mm[Hg] Curt Clark Other [employer] Other 07-13-2022 09:12-0400 Body weight 84.5 kg MD Curt Clark Work Phone: [facility] 07-13-2022 08:58-0400 Body height 167.64 cm MD Curt Clrak Work Phone: [facility] 07-13-2022 08:58-0400 Body temperature 98.6 [degF] MD Curt Clark Work Phone: [facility] 07-13-2022 08:58-0400 Diastolic blood pressure 74 mm[Hg] MD Curt Clark Work Phone: [facility] 07-13-2022 08:58-0400 Heart rate 89 /min MD Curt Clark Work Phone: [facility] 07-13-2022 08:58-0400 Respiratory rate 18 /min MD Curt Clark Work Phone: [facility] 07-13-2022 08:58-0400 SaO2% (BldA) [Mass fraction] 97 % MD Curt Clark Work Phone: [facility] 07-13-2022 08:58-0400 Systolic blood pressure 126 mm[Hg] MD Curt Clark Work Phone: [facility] 07-07-2022 10:20-0400 Body height 167.64 cm Akin Lopez Other [employer] Other 07-07-2022 10:20-0400 Body mass index (BMI) [Ratio] 30.24 kg/m2 Akin Lopez Other [employer] Other 07-07-2022 10:20-0400 Body temperature 96.7 [degF] Akin Lopez Other [employer] Other 07-07-2022 10:20-0400 Body weight 85 kg Akin Lopez Other [employer] Other 07-07-2022 10:20-0400 Diastolic blood pressure 76 mm[Hg] Akin Lopez Other [employer] Other 07-07-2022 10:20-0400 Respiratory rate 18 /min Akin Lopez Other [employer] Other 07-07-2022 10:20-0400 SaO2% (BldA) [Mass fraction] 98 % Akin Lopez Other [employer] Other 07-07-2022 10:20-0400 Systolic blood pressure 132 mm[Hg] Akin Lopez Other [employer] Other 06-16-2022 14:48-0400 Body height 167.64 cm Curt Clark Work Phone: [facility] 250 DO Work Phone: 06-16-2022 14:48-0400 Body mass index (BMI) [Ratio] 30.18 kg/m2 Curt Clark Work Phone: [facility] 250 DO Work Phone: 06-16-2022 14:48-0400 Body surface area Derived from formula 1.94 m2 Curt Clark Work Phone: [facility] 250 DO Work Phone: 06-16-2022 14:48-0400 Body weight 84.82 kg Curt Clark Work Phone: [facility] 250 DO Work Phone: 06-16-2022 14:48-0400 Diastolic blood pressure 58 mm[Hg] Curt Clark Work Phone: [facility] 250 DO Work Phone: 06-16-2022 14:48-0400 Heart rate 70 /min Curt Clark Work Phone: [facility] 250 DO Work Phone: 06-16-2022 14:48-0400 Systolic blood pressure 112 mm[Hg] Curt Clark Work Phone: [facility] DO Work Phone: 03-08-2022 10:57-0400 Blood Pressure Location Tyree PARK [facility] 03-08-2022 10:57-0400 Diastolic blood pressure 52 mm[Hg] Tyree PARK [facility] 03-08-2022 10:57-0400 Heart rate 69 /min Tyree PARK [facility] 03-08-2022 10:57-0400 Systolic blood pressure 113 mm[Hg] Tyree PARK [facility] 01-14-2022 13:20-0500 Body height 167.64 cm Akin Lopez Other [employer] Other 01-14-2022 13:20-0500 Body mass index (BMI) [Ratio] 30.34 kg/m2 Akin Lopez Other [employer] Other 01-14-2022 13:20-0500 Body weight 85.28 kg Akin Lopez Other [employer] Other 01-14-2022 13:20-0500 Diastolic blood pressure 86 mm[Hg] Akin Lopez Other [employer] Other 01-14-2022 13:20-0500 Respiratory rate 18 /min Akin Lopez Other [employer] Other 01-14-2022 13:20-0500 SaO2% (BldA) [Mass fraction] 99 % Akin Lopez Other [employer] Other 01-14-2022 13:20-0500 Systolic blood pressure 146 mm[Hg] Akin Lopez Other [employer] Other 09-30-2021 11:40-0500 Body height 167.64 cm Akin Lopez Other [employer] Other 09-30-2021 11:40-0500 Body mass index (BMI) [Ratio] 31.12 kg/m2 Akin Lopez Other [employer] Other 09-30-2021 11:40-0500 Body temperature 96.7 [degF] Akin Lopez Other [employer] Other 09-30-2021 11:40-0500 Body weight 87.45 kg Akin Lopez Other [employer] Other 09-30-2021 11:40-0500 Diastolic blood pressure 72 mm[Hg] Akin Lopez Other [employer] Other 09-30-2021 11:40-0500 Respiratory rate 18 /min Akin Lopez Other [employer] Other 09-30-2021 11:40-0500 SaO2% (BldA) [Mass fraction] 96 % Akin Lopez Other [employer] Other 09-30-2021 11:40-0500 Systolic blood pressure 111 mm[Hg] Akin Lopez Other [employer] Other 09-22-2021 10:38-0500 89.4 1 Curt Clark Work Phone: [employer] [facility] [employer] 250 DO Work Phone: Comment on above: [facility] 08-25-2021 14:44-0400 Body height 167.64 cm Curt Clark Work Phone: [employer] DO Work Phone: 08-25-2021 14:44-0400 Body mass index (BMI) [Ratio] 30.67 kg/m2 Curt Clark Work Phone: [facility] 250 DO Work Phone: 08-25-2021 14:44-0400 Body surface area Derived from formula 1.96 m2 Curt Clark Work Phone: [facility] 250 DO Work Phone: 08-25-2021 14:44-0400 Body weight 86.18 kg Curt Clark Work Phone: [facility] 250 DO Work Phone: 08-25-2021 14:44-0400 Diastolic blood pressure 74 mm[Hg] Curt Clark Work Phone: [facility] 250 DO Work Phone: 08-25-2021 14:44-0400 Heart rate 68 /min Curt Clark Work Phone: [facility] 250 DO Work Phone: 08-25-2021 14:44-0400 Systolic blood pressure 126 mm[Hg] Curt Clark Work Phone: [facility] 250 DO Work Phone: Encounters Encounter Date Encounter Type Care Provider Facility Start: 01-07-2025 ambulatory Tyree Ulloa ty:[facility] Start: 09-19-2024 Non-patient / Non-visit MD Shannan Clark Work Phone: [facility] Work Phone: Start: 09-18-2024 Non-patient / Non-visit MD Shannan Clark Work Phone: [facility] Work Phone: Start: 09-18-2024 End: 09-19-2024 ambulatory Curt Clark Facility:[facility] Start: 09-18-2024 End: 09-19-2024 Evaluation and management of inpatient MD Curt Clark Work Phone: [facility] [place] [facility] Work Phone: Start: 09-18-2024 End: 09-19-2024 observation encounter MD Curt Clark Work Phone: [facility] Work Phone: Start: 09-14-2024 Non-patient / Non-visit MD Shannan Clark Work Phone: [facility] Work Phone: Start: 09-14-2024 End: 09-17-2024 Clinisync Result Encounter Temo PETERSON Work Phone: [facility] External Department Unsolicited Start: 09-14-2024 End: 09-17-2024 Clinisync Result Encounter Temo PETERSON Work Phone: [facility] External Department Unsolicited Start: 08-20-2024 End: 08-20-2024 ambulatory MD Curt Clark Work Phone: [facility] Work Phone: Start: 08-20-2024 End: 08-20-2024 Patient encounter procedure MD Curt Clark Work Phone: [facility] Work Phone: Start: 08-20-2024 Non-patient / Non-visit MD Shannan Clark Work Phone: [facility] Work Phone: Start: 08-17-2024 End: 08-17-2024 ambulatory MD Curt Clark Work Phone: [facility] Work Phone: Start: 08-17-2024 End: 08-17-2024 Patient encounter procedure MD Curt Clark Work Phone: [facility] Work Phone: Start: 08-01-2024 ambulatory Curt Clark Facility :[facility] Start: 08-01-2024 Registered Recurring MD Curt Clark Work Phone: [facility] Work Phone: Start: 07-05-2024 End: 07-05-2024 ambulatory MD Curt Clark Work Phone: [facility] Work Phone: Start: 07-05-2024 End: 07-05-2024 Patient encounter procedure MD Curt Clark Work Phone: [facility] Work Phone: Start: 06-27-2024 Non-patient / Non-visit MD Shannan Clark Work Phone: [facility] Work Phone: Start: 06-06-2024 Registered Recurring MD Curt Clark Work Phone: [facility] Work Phone: Start: 05-31-2024 End: 05-31-2024 ambulatory MD Curt Clark Work Phone: [facility] Work Phone: Start: 05-31-2024 End: 05-31-2024 Patient encounter procedure MD Curt Clark Work Phone: [facility] Work Phone: Start: 05-23-2024 Non-patient / Non-visit MD Shannan Clark Work Phone: [facility] Work Phone: Start: 04-25-2024 Registered Recurring MD Curt Clark Work Phone: [facility] Work Phone: Start: 04-17-2024 End: 04-17-2024 Office outpatient visit 25 minutes Elicia Rhodes MD Work Phone: [facility] Comment on above: Essential hypertensi on (Primary Dx); Persistent atrial fibrillation with RVR (Multi); Aortic valve regurgitation, nonrheumatic; Ascending aorta dilation (CMS-HCC); Mixed hyperlipidemia; Pulmonary hypertension (Multi); Stage 3a chronic kidney disease (Multi); Multiple myeloma, remission status unspecified (Multi); Shortness of breath at rest; BMI 34.0-34.9,adult; Never smoked tobacco Start: 04-17-2024 End: 04-17-2024 ambulatory [facility] Ambulatory Start: 04-12-2024 End: 04-12-2024 Departed Referred MD Curt Clark Work Phone: [facility] [place] Work Phone: Start: 04-12-2024 End: 04-12-2024 ambulatory MD Curt Clark Work Phone: [facility] Work Phone: Start: 04-12-2024 End: 04-12-2024 Patient encounter procedure MD Curt Clark Work Phone: [facility] Work Phone: Start: 03-14-2024 End: 03-14-2024 ambulatory ARTEMIO NICCI Not Available Start: 02-28-2024 Registered Recurring MD Curt Clark Work Phone: [facility] Work Phone: Start: 02-15-2024 Non-patient / Non-visit MD Shannan Clark Work Phone: [facility] Work Phone: Start: 01-27-2024 End: 01-27-2024 ambulatory MD Curt Clark Work Phone: [facility] Work Phone: Start: 01-27-2024 End: 01-27-2024 Patient encounter procedure MD Curt Clark Work Phone: [facility] Ambulatory Work Phone: Start: 01-27-2024 Registered Recurring MD Curt Clark [facility]: [facility] Work Phone: Start: 01-09-2024 End: 01-10-2024 ambulatory Tyree PARK Facility:[facility] Start: 01-04-2024 End: 01-04-2024 ambulatory MD Curt Clark Work Phone: [facility] Work Phone: Start: 01-04-2024 End: 01-04-2024 Patient encounter procedure MD Curt Clark Work Phone: [facility] Work Phone: Start: 12-27-2023 Non-patient / Non-visit MD Shannan Clark Work Phone: [facility] Work Phone: Start: 12-15-2023 Registered Recurring MD Curt Clark Work Phone: [facility] Work Phone: Start: 12-02-2023 End: 12-02-2023 ambulatory Curt Clark Other [facility] [employer] Other Start: 12-02-2023 Telephone encounter Curt [facility] Start: 12-01-2023 End: 12-01-2023 ambulatory Curt Clark Other [facility] [employer] Other Start: 12-01-2023 Office outpatient vi sit 25 minutes Curt Clark [facility] Start: 12-01-2023 End: 12-01-2023 Patient encounter procedure MD Curt Clark Work Phone: [facility] Start: 11-02-2023 End: 11-02-2023 Subsequent hospital visit by physician Jodi Bell Echo/Vasc Room 2 [facility] Comment on above: Aortic valve regurgi tation, nonrheumatic; Ascending aorta dilation (CMS/HCC); Pulmonary hypertension (CMS/HCC) Start: 11-02-2023 End: 11-02-2023 ambulatory [facility] Start: 10-17-2023 End: 10-17-2023 ambulatory Curt Clark Other [employer] Other Start: 10-17-2023 Telephone encounter Curt Clark [facility] Start: 10-13-2023 End: 10-13-2023 ambulatory Curt Clark Other [employer] Other Start: 10-13-2023 Telephone encounter Curt Clark [facility] Start: 10-04-2023 End: 10-04-2023 Office outpatient visit 25 minutes Elicia Rhodes MD Work Phone: [facility] Comment on above: Persistent atrial fi brillation with RVR (CMS/HCC) (Primary Dx); Aortic valve regurgitation, nonrheumatic; Ascending aorta dilation (CMS/HCC); Essential hypertension; Pulmonary hypertension (CMS/HCC); Stage 3a chronic kidney disease (CMS/HCC) Start: 10-04-2023 End: 10-04-2023 ambulatory [facility] Amb[facility] Start: 09-26-2023 End: 09-26-2023 ambulatory Curt Clark Other [employer] Other Start: 09-26-2023 Office outpatient vi sit 15 minutes Curt Clark [facility] Start: 09-13-2023 End: 09-13-2023 ambulatory Curt Clark Other [employer] Other Start: 09-13-2023 Office outpatient vi sit 15 minutes Curt Clark [facility] Start: 08-31-2023 Office outpatient ne w 45 minutes Nehemias Fernandez II [facility] Start: 08-31-2023 End: 08-31-2023 ambulatory MD Curt Clark Work Phone: [facility] Work Phone: Start: 08-31-2023 End: 08-31-2023 Patient encounter procedure MD Curt Clark Work Phone: [facility] Start: 07-21-2023 Rx Renewal Curt Clark Work Phone: [facility] 250 DO Work Phone: Start: 07-19-2023 End: 07-19-2023 ambulatory MD Curt Clark Work Phone: [facility] Work Phone: Start: 07-19-2023 End: 07-19-2023 Registered Recurring MD Curt Clark Work Phone: [facility] Work Phone: Start: 07-19-2023 Registered Recurring MD Curt Clark Work Phone: [facility] Work Phone: Start: 07-15-2023 End: 07-15-2023 ambulatory Curt Clark Other [employer] Other Start: 07-15-2023 Telephone encounter Curt Clark [facility] Start: 07-08-2023 End: 07-08-2023 ambulatory Curt Clark Other [employer] [facility] [employer] Other Start: 07-08-2023 Telephone encounter Curt Clark [facility] Start: 07-04-2023 Rx Renewal Curt Clark Work Phone: [facility] 250 DO Work Phone: Start: 06-27-2023 End: 06-27-2023 ambulatory Curt Clark Other [facility] [employer] Other Start: 06-27-2023 Telephone encounter Curt Clark [facility] Start: 06-24-2023 End: 06-24-2023 ambulatory Curt Clark Other [employer] Other Start: 06-24-2023 Office outpatient vi sit 25 minutes Curt Clark [facility] Start: 06-23-2023 End: 06-23-2023 ambulatory Akin Lopez Other [employer] Other Start: 06-23-2023 Office outpatient vi sit 15 minutes Akin Lopez [facility] Nephrology Start: 06-20-2023 End: 06-20-2023 ambulatory Curt Clark Other [employer] Other Start: 06-20-2023 Telephone encounter Curt Clark [facility] Start: 06-13-2023 Rx Renewal Curt Clark Work Phone: [facility] [employer] 708 DO Work Phone: Start: 05-04-2023 End: 05-04-2023 ambulatory Curt Clark Other [employer] Other Start: 05-04-2023 Telephone encounter Curt Clark [facility] Start: 04-26-2023 End: 04-26-2023 ambulatory Curt Clark Other [employer] Other Start: 04-26-2023 Office outpatient vi sit 25 minutes Curt Clark [facility] Start: 03-23-2023 Office outpatient vi sit 25 minutes Curt Clark Work Phone: [facility] [employer] 250 DO Work Phone: Start: 03-23-[address] Curt Clark Facility: Start: 03-16-2023 Telephone encounter Curt Clark [facility] Start: 03-16-2023 End: 03-17-[address] CURT CLARK [employer] Other Start: 03-15-2023 End: 03-15-2023 ambulatory Curt Clark Other [employer] Other Start: 03-15-2023 Office outpatient vi sit 15 minutes Curt Clark [facility] Start: 02-21-2023 End: 02-22-[address] ELICIA RHODES Facility:[facility] Start: 01-11-2023 End: 01-11-2023 ambulatory MD Curt Clark Work Phone: [facility] Work Phone: Start: 01-11-2023 End: 01-11-2023 Registered Recurring MD Curt Clark Work Phone: [facility] Work Phone: Start: 01-10-2023 End: 01-10-2023 Patient encounter procedure Tyree PARK [facility] Start: 01-06-2023 End: 01-07-[address] CURT CLARK Facility:[facility] Start: 12-22-2022 End: 12-22-2022 ambulatory Akin Lopez Other [employer] Other Start: 12-22-2022 Office outpatient vi sit 25 minutes Akin Lopez [facility] Nephrology Start: 12-14-2022 End: 12-15-2022 ambulatory AKIN LOPEZ Facility:[facility] Start: 12-09-2022 End: 12-09-2022 ambulatory Curt Clark Other [employer] Other Start: 12-09-2022 Office outpatient vi sit 25 minutes Curt Clark [facility] Start: 08-09-[address] CURT CLARK Facil ity:[facility]1 Start: 07-13-2022 End: 07-13-2022 Registered Recurring MD Curt Clark Work Phone: [facility] Start: 07-12-2022 End: 07-13-2022 ambulatory CLAIRE Dayan CHOI Facility:[facility] Start: 07-07-2022 End: 07-07-2022 ambulatory Akin Lopez Other [facility] [employer] Other Start: 07-07-2022 Office outpatient vi sit 25 minutes Akin Lopez [facility] Start: 06-30-2022 End: 07-01-2022 ambulatory AKIN LOPEZ Facility:[facility] Start: 06-16-2022 Office outpatient vi sit 25 minutes Curt Clark Work Phone: [facility] 250 DO Work Phone: Start: 06-16-2022 ambulatory [...] encounter procedure Tyree PARK [facility] Start: 02-25-2022 Rx Renewal Curt Clark Work Phone: [facility] 250 DO Work Phone: Start: 02-23-2022 End: 02-23-2022 ambulatory Akin Lopez Other [facility] [employer] Other Start: 02-23-2022 Telephone encounter Akin Lopez [facility] Start: 01-14-2022 End: 01-14-2022 ambulatory Akin Lopez Other [facility] [employer] Other Start: 01-14-2022 Office outpatient vi sit 25 minutes Akin Lopez [facility] Start: 10-12-2021 Rx Renewal Curt Clark Work Phone: [facility] [employer] 250 DO Work Phone: Start: 09-30-2021 End: 09-30-2021 ambulatory Akin Lopez Other [facility] [employer] Other Start: 09-30-2021 Office outpatient vi sit 25 minutes Akin Lopez [facility] Start: 09-30-2021 Telephone encounter Akin Lopez [facility] Start: 08-25-2021 Office outpatient vi sit 25 minutes Curt Clark Work Phone: [facility] [employer] 250 DO Work Phone: Start: 07-02-2021 End: 07-02-2021 ambulatory Tondra Mapus Other [facility] [employer] Other Start: 07-02-2021 Telephone encounter Tondra Mapus [facility] Procedures Date Procedure Procedure Detail [...] Visit [facility] [address] [place] [id number] Liberty Rossi MD [address] [place] [address] [facility] Start: 10-15-2024 End: 10-15-2024 Patient encounter procedure 10/15/2024 11:20 AM EST Office Visit [facility] [address] [place] [address] Elicia Rhodes MD [address] [place] [address] [facility] Start: 09-19-[address] [facility] Start: 09-19-2024 Administration of prophylactic treatment [facility] Start: 09-19-2024 End: 09-19-2024 Patient encounter procedure 09/19/2024 9:40 AM EST Office Visit [facility] [address] [place] [address] Artemio Grajeda NP [address] [place], [place] [id number] [facility] [address] [facility] Start: 09-18-2024 End: 09-18-2024 Referral to rehabilitation physician [facility] Start: 09-18-2024 End: 09-18-[address] [facility] Start: 09-18-2024 Physical therapy procedure [facility] Start: 09-18-2024 Referral to occupational therapist [facility] Start: 09-18-2024 End: 09-18-[address] [facility] Start: 09-18-2024 Hospital admission [facility] Start: 07-15-2024 Influenza vaccination Influenza Vaccine (Season Ended) [facility] Start: 04-17-2024 End: 04-17-2025 Lipid 1996 panel - Serum or Plasma Lipid Panel Lab Routine Mixed hyperlipidemia Expected: 04/17/2024 (Approximate), Expires: 04/17/2025 [facility] Service Area Work Phone: Comment on above: Expected: 04/17/2024 (Approximate), Expi res: 04/17/2025 Start: 04-17-2024 End: 04-17-2024 Patient encounter procedure 04/17/2024 1:40 PM EDT Office Visit [address] [place] [id number] Elicia Rhodes MD [address] [facility] [address] [place] [address] [facility] Start: 04-13-2024 Bacteria identified in Urine by Culture [facility] Start: 04-12-2024 Bacteria identified in Urine by Culture [facility] Start: 11-08-2023 Glaucoma screening Diabetes: Retinopathy Screening [facility] Start: 11-02-2023 End: 11-02-2023 Patient encounter procedure 11/02/2023 10:45 AM EST Appointment [place] [id number] [facility] [address] [place] [address] [facility] Start: 10-04-2023 FUV, Provider: Elicia Rhodes, Status: Pen, Time: 2:10 PM FUV, Provider: Elicia Rhodes, Status: Pen, Time: 2:10 PM [facility] [facility] 250 DO Work Phone: Start: 10-04-2023 End: 10-04-2025 Heart Transthoracic Transthoracic Echo (TTE) Complete Echocardiography Routine Aortic valve regurgitation, nonrheumatic Ascending aorta dilation (CMS/HCC) Pulmonary hypertension (CMS/HCC) Expected: 10/04/2023 (Approximate), Expires: 10/04/2025 [facility] Service Area Work Phone: Comment on above: Expected: 10/04/2023 (Approximate), Expi res: 10/04/2025 Start: 07-19-[address] [facility] Start: 07-15-2023 Influenza vaccination Influenza Vaccine (#1) [facility] Start: 03-23-2023 FUV, Provider: Elicia Rhodes, Status: Pen, Time: 2:20 PM FUV, Provider: Elicia Rhodes, Status: Pen, Time: 2:20 PM [facility] 250 DO Work Phone: Start: 01-04-[address] [facility] Start: 08-23-[address] [facility] Start: 08-17-2022 End: 08-17-[address] [facility] Start: 07-13-[address] [facility] Start: 06-28-[address] [facility] Start: 05-31-[address] [facility] Start: 05-26-[address] [facility] Start: 05-25-2022 FUV, Provider: Elicia Rhodes, Status: Pen, Time: 2:20 PM [facility] 250 DO Work Phone: Start: 04-13-[address] [facility] Start: 03-02-[address] [facility] Start: 01-18-[address] [facility] Start: 01-18-[address] [facility] Start: 01-18-2022 End: 01-18-[address] [facility] Start: 01-18-[address] [facility] Start: 01-11-[address] [facility] Start: 12-23-[address] [facility] Start: 12-23-[address] [facility] Start: 11-03-[address] [facility] Start: 10-06-[address] [facility] Start: 09-08-[address] [facility] Start[facility] 08-25-[address] [facility] Start: 08-11-[address] [facility] Start: 08-11-[address] [facility] Start: 07-14-[address] [facility] Start: 07-14-[address] [facility] Start: 07-09-2021 End: 07-09-[address] [facility] Start: 06-16-[address] [facility] Start: 05-19-2021 End: 05-19-[address] [facility] Start: 05-19-[address] [facility] Start: 04-21-[address] [facility] Start: 04-09-[address] [facility] Start: 03-24-[address] [facility] Start: 02-24-[address] [facility] Start: 01-12-2021 End: 01-12-[address] [facility] Start: 01-06-[address] [facility] Start: 01-01-[address] [facility] Start: 12-02-[address] [facility] Start: 11-04-[address] [facility] Start: 10-07-[address] [facility] Start: 09-09-[address] [facility] Start: 08-12-[address] [facility] Start: 07-15-[address] [facility] Start: 06-17-[address] [facility] Start: 05-20-[address] [facility] Start: 04-16-[address] [facility] Start: 03-19-[address] [facility] Start: 01-09-[address] [facility] Start: 01-09-[address] [facility] Start: 01-03-[address] [facility] Start: 11-27-2019 End: 11-28-[address] [facility] Start: 10-29-[address] [facility] Start: 10-17-[address] [facility] Start: 09-05-[address] [facility] Start: 09-05-[address] [facility] Start: 07-25-[address] [facility] Start: 07-25-[address] [facility] Start: 06-13-[address] [facility] Start: 06-13-[address] [facility] Start: 05-02-[address] [facility] Start: 04-04-[address] [facility] Start: 03-07-[address] [facility] Start: 02-07-[address] [facility] Start: 01-10-[address] [facility] Start: 11-15-[address] [facility] Start: 10-18-[address] [facility] Start: 09-20-[address] [facility] Start: 08-23-[address] [facility] Start: 07-12-[address] [facility] Start: 06-14-[address] [facility] Start: 05-18-[address] [facility] Start: 05-09-[address] [facility] Start: 04-19-[address] [facility] Start: 03-22-[address] [facility] Start: 02-15-[address] [facility] Start: 01-18-[address] [facility] Start: 12-21-[address] [facility] Start: 08-24-[address] [facility] Start: 07-27-[address] [facility] Start: 2002 RSV patients and/or patients aged 60+ years (1 - 1-dose 60+ series) RSV patients and/or patients aged 60+ years (1 - 1-dose 60+ series) [facility] Start: 1964 DTaP/Tdap/Td Vaccines (1 - Tdap) DTaP/Tdap/Td Vaccines (1 - Tdap) [facility] Start: 1961 Urine screening for protein Diabetes: Urine Protein Screening [facility] Start: 1961 Zoster Vaccines (1 of 2) Zoster Vaccines (1 of 2) [facility] Start: 1952 Diabetic foot examination Diabetes: Foot Exam [facility] Start: 1948 Pneumococcal Vaccine: 65+ Years (1 - PCV) Pneumococcal Vaccine: 65+ Years (1 - PCV) [facility] Start: 1948 Pneumococcal Vaccine: 65+ Years (1 of 2 - PCV) Pneumococcal Vaccine: 65+ Years (1 of 2 - PCV) [facility] Start: 1947 COVID-19 Vaccine (#1) COVID-19 Vaccine (#1) [facility] Start: 1942 Hemoglobin A1c measurement Diabetes: Hemoglobin A1C [facility] Start: 1942 Lipid panel Lipid Panel [facility] Start: 1942 Medicare Annual Wellness Visit Medicare Annual Wellness Visit (AWV) [facility] Start: 1942 Yearly Adult Physical Yearly Adult Physical [facility] Anion gap measurement [facility] Basophils [#/volume] in Blood by Automated count [facility] Basophils/100 leukocytes in Blood by Automated count [facility] Comprehensive metabo lic 2000 panel - Serum or Plasma [facility] Work Phone: Comprehensive metabo lic 2000 panel - Serum or Plasma [facility] Comprehensive metabo lic 2000 panel - Serum or Plasma [facility] Comprehensive metabo lic 2000 panel - Serum or Plasma [facility] Comprehensive metabo lic 2000 panel - Serum or Plasma [facility] DXA Skeletal system.axial Views for bone density [facility] Work Phone: DXA Skeletal system.axial Views for bone density [facility] Eosinophils/100 leukocytes in Blood by Automated count [facility] Erythrocyte distribution width [Ratio] by Automated count [facility] Erythrocytes [#/volu me] in Blood [facility] Hematocrit [Volume Fraction] of Blood [facility] Hemoglobin [Mass/volume] in Blood [facility] Leukocytes [#/volume ] corrected for nucleated erythrocytes in Blood by Automated coun [facility] Leukocytes [#/volume ] in Blood [facility] Lymphocytes [#/volum e] in Blood by Automated count [facility] Lymphocytes/100 leukocytes in Blood by Automated count [facility] MCH [Entitic mass] b y Automated count [facility] MCHC [Mass/volume] b y Automated count [facility] MCV [Entitic volume] by Automated count [facility] Monocytes [#/volume] in Blood by Automated count [facility] Monocytes/100 leukocytes in Blood by Automated count [facility] Neutrophils [#/volum e] in Blood by Automated count [facility] Neutrophils/100 leukocytes in Blood by Automated count [facility] Nucleated erythrocyt es [Presence] in Blood by Automated count [facility] Patient Education Know your Meds [facility] Work Phone: Patient referral [facility] Work Phone: Platelet mean volume [Entitic volume] in Blood by Automated count [facility] Platelets [#/volume] in Blood [facility] Radiologic examinati on osseous survey [facility] Work Phone: Radiologic examinati on osseous survey [facility] Radiologic examinati on osseous survey [facility] Radiologic examinati on osseous survey [facility] Renal function 1999 panel - Serum or Plasma [facility] Renal function 1999 panel - Serum or Plasma [facility] End: 11-02-2023 US Heart Transthoracic [facility] Service Area Work Phone: Comment on above: Once for 1 Occurrences starting 11/02/20 until 11/02/2023 [facility] Payers Date Payer Category Payer Private Health Insurance [facility] [id number] 2022 Unknown [id number] 2021 Medicare [id number] 2010 Unknown 2010 Unknown [id number] 2007 Medicare [id number] 1959 Medicare [id number] 2.16.840.1.832431.19 1957 Self-pay [id number] 1959 Unknown [id number] 2.16.840.1.692521.19 1940 Unknown [id number] 2.16.840.1.030759.3.579. 2.593 1942 Unknown [id number] 2.16.840.1.001657.3.579. 2.593 1942 Unknown [id number] 2.16.840.1.492877.3.579. 2.593 1942 Unknown [id number] 2.16.840.1.753379.3.579. 2.593 1942 Unknown [id number] 2.16.840.1.543678.3.579. 2.593 1942 Unknown [id number] 2.16.840.1.406005.3.579. 2.593 1942 Unknown [id number] 2.16.840.1.947721.3.579. 2.593 1942 Unknown [id number] 2.16.840.1.032335.3.579. 2.593 1942 Unknown [id number] 2.16.840.1.967274.3.579. 2.593 1942 Unknown [id number] 2.16.840.1.737792.3.579. 2.593 1942 Unknown [id number] 2.16.840.1.385468.3.579. 2.593 1942 Unknown [id number] 2.16.840.1.113702.3.579. 2.593 1942 Unknown [id number] 2.16.840.1.683158.3.579. 2.593 1942 Unknown [id number] 2.16.840.1.424417.3.579. 2.593 1942 Unknown [id number] 2.16.840.1.126372.3.579. 2.356 1942 Unknown [id number] 2.16.840.1.967104.3.579. 2.356 1942 Unknown [id number] 2.16.840.1.337064.3.579. 2.727 1942 Unknown [id number] 2.16.840.1.905204.3.579. 2.727 1942 Unknown [id number] 2.16.840.1.610617.3.579. 2.727 1942 Unknown [id number] 2.16.840.1.765893.3.579. 2.1259 1942 Unknown [id number] 2.16.840.1.291910.3.579. 2.1244 1942 Unknown [id number] 2.16.840.1.518277.3.579. 2.1244 1942 Unknown [id number] 2.16.840.1.731191.3.579. 2.1246 Unknown [id number] 2.16.840.1.954547.3.579. 2.593 Unknown [id number] 2.16.840.1.391170.3.579. 2.531 Unknown [id number] 2.16.840.1.650659.3.579. 2.531 Unknown [id number] 2.16.840.1.167357.3.579. 2.531 Social History Date Type Detail Facility Start: 10-04-2023 End: 03-14-2024 Daily caffeine consumption, 2-3 servings a day Daily caffeine consumption, 2-3 servings a day -[facility] 250 DO Work Phone: Start: 03-08-2022 End: 09-18-2024 Tobacco smoking status Never smoked tobacco (finding) [facility] Tobacco smoking status Never [facility] Start: 10-04-2023 End: 03-14-2024 Sex Assigned At Female [facility] [employer] Other Start: 1940 Sex Assigned At Female [facility] Start: 10-04-2023 End: 03-05-2024 Tobacco use and exposure Smokeless tobacco non-user [facility] Work Phone: Start: 10-04-2023 End: 03-14-2024 Alcohol intake Lifetime non-drinker (finding) [facility] Work Phone: Start: 1940 Sex Assigned At Not on file [facility] Work Phone: Start: 09-24-2023 End: 04-17-2024 Exposure to SARS-CoV-2 (event) Not sure [facility] Medical Equipment Procedure Code Equipment Code Equipment Origin al Text Equipment Identifier Dates Lancets 100 pack Start: 07-10-2018 Goals Date Patient Goal Desired Activity /State Functional Status Date Assessment Result Facility 09-19-2024 Functional status Patient at Baseline [facility] Work Phone: 01-10-2023 Functional Status N/A [facility] Mental Status Date Assessment Result Facility 09-19-2024 Cognitive function Cognitive Sta tus Patient at Baseline [facility] Work Phone: Clinical Notes 07-27-2017 to 09-18-2024 Note Date & Type Note Facility 09-18-2024 Consult note Note Date/Time September 18, 2024 11:34am [facility] [address] [place] [address] Physiatry (Rehab) Consult Note Signed Patient: Hailee Trivedi MR#: [id number] : 1940 Acct:[id number] Age/Sex: 84 / F Adm Date: 4 Loc: Room: [address] [place] [address] Type: ADM INOo Attending Dr: Trent Patterson [...] well. She had also recently been to [place] [facility] and was diagnosed with a UTI. [...] negative unless noted below or in HPI [facility] Medical History Multiple myeloma Type 2 diabetes [...] subcut BID 07/05/24 [History Confirmed 09/17/24] omega 3-wwk-gyv-fish oil 1,000 mg (120 mg-180 mg) capsule [...] % (Auto) 87.9 Lymph % (Auto) 4.8 [place] % (Auto) 4.9 Eos % (Auto) 2.1 Baso % (Auto) 0.3 Nucleat RBC Rel Count 0.0 Neut # (Auto) 10.6 H Lymph # (Auto) 0.6 L [place] # (Auto) 0.6 Eos # (Auto) 0.3 [...] Appearance Clear Urine pH 5.5 Ur Specific [place] 1.023 Urine Protein 50 H Urine Glucose [...] MPV Neut % (Auto) Lymph % (Auto) [place] % (Auto) Eos % (Auto) Baso % (Auto) Nucleat RBC Rel Count Neut # (Auto) Lymph # (Auto) [place] # (Auto) Eos # (Auto) Baso # [...] Color Urine Appearance Urine pH Ur Specific [place] Urine Protein Urine Glucose (UA) Urine Ketones [...] % (Auto) 81.6 Lymph % (Auto) 6.6 [place] % (Auto) 8.7 Eos % (Auto) 2.3 Baso % (Auto) 0.8 Nucleat RBC Rel Count 0.0 Neut # (Auto) 8.0 H Lymph # (Auto) 0.7 L [place] # (Auto) 0.9 H Eos # (Auto) [...] Color Urine Appearance Urine pH Ur Specific [place] Urine Protein Urine Glucose (UA) Urine Ketones [...] time. I would recommend discharge to a penitentiary facility for continued therapy services. -Continue early mobility and OOB therapy. -Thank you for the consult. Patient was personally seen by me, Dr. Diaz, on the day of encounter, reviewed the history and the relevant portions of the chart, including current orders, allied health and residential solar consultant notes, labs/imaging and performed chahal elements of exam and I formulated the plan of care and facilitated the medical decision making. I completed a substantive portion of this encounter, the medical decision making portion of this note in its entirety, including Allied health note review, nursing note review, residential solar consultant note review, discussion with nursing and case management, and more than 50% of my time was spent on counseling and coordination of care, time spent 65 minutes Documented By: Cristiano Diaz MD [id number] Signed By: <Electronically signed by Cristiano Diaz MD> 09/18/24 4547 [facility] Work Phone: 1(761) 463-460611-05-2024 Progress note Author Trent Patterson 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 This patient presented to the emergency department complaining of fatigue, diarrhea, lower abdominal pain. She states that she recovered from COVID about 2 weeks ago. This past Tuesday she presented herself to [place] and was diagnosed with a UTI and [...] Insuln.Pen SUBCUT 09/18/25 07:59 Not Given TID.WM.HS [facility] Protocol Insulin Human NPH 15 units 09/18/24 [...] Syringe IV-PUSH 09/18/25 05:59 Not Given QSHIFT [facility] A&P - Hospitalist Assessment/Plan (1) Chest pain: (2) CKD (chronic kidney disease) stage 4, GFR 15-29 ml/min: (3) Weakness: Plan . Documented By: Trent Patterson MD 09/18/24 1334 Signed By: <Electronically signed by Trent Patterson MD> 09/18/24 1348 <Electronically signed by DO MARK Everett> 09/18/24 1342 [facility] Work Phone: 1(196) 530-596811-05-2024 History and physical note Author Pool Buck [facility] September 18, 2024 5:23am Note Date/Time September 18, 2024 1 :33am [facility] [address] [place] [address] Hospitalist H&P Signed Patient: Hailee Trivedi MR#: [id number] : 1940 Acct:[id number] Age/Sex: 84 / F Adm Date: 4 Loc: Room: [address] [place] [address] Type: ADM INOo Attending Dr: Pool Buck MD Copies to: MD Curt Boogie MD Paula G Smith, [employer]~ HPI DATE OF EXAMINATION: 09/18/24 CHIEF COMPLAINT: [...] stools are black. She reports going to [facility] emergency room Tuesday and they diagnosed [...] 30.4. ABG with a pH of 7.34, [id number]. CMP with a serum bicarb of 17.5, [...] will be admitted as observation to the [facility] floor Review of Systems Review of Systems Review of systems: A 10 point review of systems was obtained, negative unless noted in the HPI or below. [facility] Medical History Multiple myeloma Type 2 diabetes [...] subcut BID 07/05/24 [History Confirmed 09/17/24] omega 3-con-byo-fish oil 1,000 mg (120 mg-180 mg) capsule [...] % (Auto) 4.8 % (.) 09/17/24 21:16 [place] % (Auto) 4.9 % (.) 09/17/24 21:16 Eos % (Auto) 2.1 % (.) 09/17/24 21:16 Baso % (Auto) 0.3 % (.) 09/17/24 21:16 Nucleat RBC Rel Count 0.0 /100 WBC (0-0.5) 09/17/24 21:16 Neut # (Auto) 10.6 x10E3/uL (1.8-7.7) H 09/17/24 21:16 Lymph # (Auto) 0.6 x10E3/uL (1.00-4.8) L 09/17/24 21:16 [place] # (Auto) 0.6 x10E3/uL (0.0-0.8) 09/17/24 21:16 [...] pH 5.5 (5.0-9.0) 09/17/24 21:56 Ur Specific [place] 1.023 (1.001-1.030) 09/17/24 21:56 Urine Protein 50 [...] signed by Pool Buck MD> 09/18/24 0523 [facility] Work Phone: 1(504) 938-257406-04-2024 History of Present illness Narrative* Elicia Rhodes [...] recurrence. She did have noninvasive assessment at [facility], which was negative. Couple of years [...] once daily.,Disp: , Rfl: fish oil concentrate (Kellogg-3) 120-180 mg capsule, Take 1 capsule (1 [...] recurrence. She did have noninvasive assessment at [facility], which was negative. Couple of years [...] once daily.,Disp: , Rfl: fish oil concentrate (Kellogg-3) 120-180 mg capsule, Take 1 capsule (1 [...] exam, discussion and plan. documented in this [facility] Work Phone: 1([phone]) 912-109406-04-2024 Instructions* Patient Instructions* Daisy Mane LPN - [...] through Care Everywhere. * Diet and health (Luxembourgish) [facility] Work Phone: 1([phone]) 355-424901-18-2024 Evaluation note* Encounter Date Diagnosis Assessment Notes [...] kidney disease (ICD-10 - N18.4) Let her surgical technologist know that she is having trouble affording the oracit. Will see him as scheduled on 12/05. 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 Had treated neck in the past. Pt tolerated well. [facility] Other 12-04-2023 Evaluation note* Encounter Date Diagnosis Assessment Notes Treatment Notes Treatment Clinical Notes Oct, Type 2 diabetes mellitus with hyperglycemia (ICD-10 - E11.65) [facility] Other 11-30-2023 Evaluation note* Encounter Date Diagnosis Assessment Notes Treatment Notes Treatment Clinical Notes Sep, Type 2 diabetes mellitus with hyperglycemia (ICD-10 - E11.65) [facility] Other 11-21-2023 History of Present illness Narrative* [...] recurrence. She did have noninvasive assessment at [facility], which was negative. Couple of years [...] once daily.,Disp: , Rfl: fish oil concentrate (Kellogg-3) 120-180 mg capsule, Take 1 capsule (1 [...] chronic kidney disease (CMS/HCC) [facility] Work Phone: 1(235) 821-889811-21-2023 Instructions* Patient Instructions* Daisy Mane LPN - [...] Follow up 6 months [facility] Work Phone: [phone]) 912-608211-13-2023 Evaluation note* Encounter Date Diagnosis Assessment Notes Treatment Notes Treatment Clinical Notes Sep, Bronchitis (ICD-10 - J40) Discussed diagnosis with patient. Finish entire course of antibiotic. Tessalon Pearles ordered to take as needed for cough. Increase fluids and rest. Edee-wml-vmsxbwq antipyretics as needed. Warning signs and symptoms reviewed with patient today. Patient to go immediately to the ER should she experience any of these. Patient to notify office should her symptoms persist and not improve. Patient verbalizes understanding and agrees to treatment plan. [facility] Other 10-31-2023 Evaluation note* Encounter Date Diagnosis Assessment Notes Treatment Notes Treatment Clinical Notes Aug, Lumbar pain (ICD-10 - M54.50) Hx of falls - will check lumbar XR to r/o fracture Aug, Left flank pain (ICD-10 - R10.9) r/o nephrolith Aug, Bronchitis (ICD-10 - J40) Finish antibiotics. Take prednisone. Understands it will increase her glucose. [facility] Other 10-18-2023 Evaluation note* Encounter Date Diagnosis Assessment Notes Treatment Notes Treatment Clinical Notes Aug, Acute pain of left knee (ICD-10 - M25.562) Aug, Other Patient's not having any pain today. At this point she can call me in the future if she needs me [facility] Other 08-11-2023 Evaluation note* Encounter Date Diagnosis Assessment Notes Treatment Notes Treatment Clinical Notes Jun, UTI symptoms (ICD-10 - R39.9) Will treat empirically as she is unable to provide a sample today. Jun, Weakness (ICD-10 - R53.1) Agrees to for PT and possible help with medications. Jun, Balance disorder (ICD-10 - R26.89) as above [facility] Other 08-10-2023 Evaluation note* Encounter Date Diagnosis [...] sugars are above the goal. Continue follow-up counts include 234 beds at the [facility] PCP for diabetes mellitus management. She is [...] to the CKD. Continue oral sodium bicarbonate. [facility] Other 06-13-2023 Evaluation note* Encounter Date Diagnosis Assessment Notes Treatment Notes Treatment Clinical Notes Apr, Vasovagal syncope (ICD-10 - R55) Nearly passed out in office, BP down to 90/58. Staff helped her to friends car. Report called to Dr. Agudelo at [facility] ER. 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 Pt sent to ER. [...] med. She agrees to HH and PT [facility] Other 05-03-2023 NotePROCEDURE: XR KNEE LT 1_2 [...] Electronically authenticated by: WILD SOLO Date: 2023-03-16 09:18[facility]05-02-2023 Evaluation note* Encounter Date Diagnosis Assessment Notes Treatment Notes Treatment Clinical Notes March, Left lateral knee pain (ICD-10 - M25.562) Discussed possible PT. Has improved overall with rest and stretching. Will start with Xray. Recommended tylenol products. March, Hypertension (ICD-10 - I10) chronic. stable - controlled on present meds [facility] Other 02-28-2023 Progress note Author Misti Connolly [facility] January 11, 2023 11:19am Note Date/Time January 11, 2023 10:42am [facility] [place] [address] Hem/Onc Follow Up Note - OP Signed Patient: Hailee Trivedi MR#: [id number] : 1940 Acct:[id number] Age/Sex: 82 / F Type: REG RCR [...] neurologist. Head CT done March 2022 at [facility] without new/acute findings. 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 [...] been trying to transfer her care to [place] [facility] but they are not up [...] x 1 week, sees neurology (followed at [facility]) who have ruled out stroke, CT [...] for coordination of care (as documented) and qxjq-ub-wgwd counseling of patient and/or family. [facility] - Medical History Medical History: Medical History [...] 01/19/22 09:00 KB (Rec: 01/19/22 09:[id number]) Distress Screening Distress screening follow up: Will follow with patient for any needs at next visit. Anxious about making next appointment time. - Lab Results Diagram of Most Recent CBC and CMP 01/04/23 14:45 01/04/23 14:45 Labs - Last 7 Days 01/04/23 14:45: Free Spiro LC, Quant 26.9 H, Free Lambda LC, Quant 12.0, Free Spiro/Lambda Ratio 2.24 H 01/04/23 14:45: PHA Creatinine [...] % (Auto) 54.8, Lymph % (Auto) 34.1, [place] % (Auto) 8.0, Eos % (Auto) 2.3, Baso % (Auto) 0.8, Nucleat RBC Rel Count 0.0, Neut # (Auto) 4.9, Lymph # (Auto) 3.0, [place] # (Auto) 0.7, Eos # (Auto) 0.2, [...] <Electronically signed by RAMAKRISHNA Connolly> 01/11/23 1119 [facility] Work Phone: [phone]) 255-763902-27-2023 Hospital Discharge instructions Patient Education 01/10/2023 08:23:12 [...] include: ?Spinach. ?Rhubarb. ?Beets. ?Potato chips and turkish fries. ?Nuts. If you regularly take a diuretic medicine, make sure to eat at least 1 2 fruits or vegetables high in potassium each day. These include: ?Avocado. ?Banana. ?[place], prune, carrot, or tomato juice. ?Baked [...] Casseroles. Pizza. Lasagna. Frozen meals. Potato chips. Hong Konger fries. Summary You can reduce your risk [...] 02/25/2012 Document Revised: 02/20/2020 Document Reviewed: 10/11/2017 [email or web address] Patient Education 2020 [employer]. Follow Up Care 03/08/2022 11:44:08 With:XAVIER VELAZQUEZ, Tyree Rivers, URL Address: [facility] [address] , [place] [address]- When: Unknown [facility] 02-08-2023 Evaluation note* Encounter Date Diagnosis Assessment [...] sugars are above the goal. Continue follow-up counts include 234 beds at the [facility] PCP for diabetes mellitus management. She is [...] to the CKD. Continue oral sodium bicarbonate. 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 Nov, Wart of face (ICD-10 - B07.9) Small wart on her face was treated with cryo freeze without issue pt tolerated procedure well Nov, CKD (chronic kidney disease), stage IV (ICD-10 - N18.4) Discussed follow-up appointment with Dr. Jane Nov, Multiple myeloma (ICD-10 - C90.00) Stable on present appointments and treatment [facility] Other 10-04-2022 Progress note Author Claire Choi [facility] August 17, 2022 1:48pm Note Date/Time August 03, 2022 4:57pm [facility] [place] [address] Hem/Onc Follow Up Note - OP Signed with Addenda Patient: Hailee Trivedi MR#: [id number] : 1940 Acct:[id number] Age/Sex: 82 / F Type: REG RCR [...] neurologist. Head CT done March 2022 at [facility] without new/acute findings. May suggest brain MRI if no other etiologies identified - History of Present Illness Chief Complaint: Patient is here for a 3 month follow up with outside labs for review. States she has had ongoing lower back pain for the last month or so. Patient scheduled for Cycle 55 Daratumumab today. 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 [...] been trying to transfer her care to [place] [facility] clinic but they are not up [...] x 1 week, sees neurology (followed at [facility]) who have ruled out stroke, CT [...] for coordination of care (as documented) and olpq-dm-vmys counseling of patient and/or family. [facility] - Medical History Medical History: Medical History [...] 01/19/22 09:00 KB (Rec: 01/19/22 09:01 KB [id number]) Distress Screening Distress screening follow up: Will [...] signed by Claire Choi II, DO> 08/03/221658 [facility] Work Phone: 1(864) 104-812109-20-2022 Progress note Author Claire Choi [facility] August 03, 2022 5:01pm Note Date/Time August 03, 2022 5:00pm [facility] [place] [address] Hem/Onc Follow Up Note - OP Signed Patient: Hailee Trivedi MR#: [id number] : 1940 Acct:[id number] Age/Sex: 82 / F Type: REG RCR [...] neurologist. Head CT done March 2022 at [facility] without new/acute findings. May suggest brain MRI if no other etiologies identified - History of Present Illness Chief Complaint: Patient is here for a 3 month follow up with outside labs for review. States she has had ongoing lower back pain for the last month or so. Patient scheduled for Cycle 55 Daratumumab today. 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 [...] been trying to transfer her care to [place] [facility] clinic but they are not up [...] x 1 week, sees neurology (followed at [facility]) who have ruled out stroke, CT [...] for coordination of care (as documented) and cmzd-qv-nbsp counseling of patient and/or family. [facility] - Medical History Medical History: Medical History [...] 01/19/22 09:00 KB (Rec: 01/19/22 09:01 KB [id number]) Distress Screening Distress screening follow up: Will [...] by Claire Choi II, DO> 08/03/22 170 [facility] Work Phone: 1(446) 326-559108-24-2022 Evaluation note* Encounter Date Diagnosis Assessment Notes [...] sugars are above the goal. Continue follow-up counts include 234 beds at the [facility] PCP for diabetes mellitus management. She is [...] (IC D-10 - C90.00) Follows with Oncology [facility] Other 07-08-2022 History general Narrative - Reported* [...] Hospitalization History [facility] Hospitalization History COVID 10/2021 [facility] Other 07-08-2022 History general Narrative - Reported* [...] Medical History A-FIB Medical History [facility] 06/19/2023 Surgical History cholecystectomy Surgical History total hysterectomy 1989 Surgical History hemorrhoidectomy Surgical History CHEMO 06/2016 Surgical History lithotripsey 03/09/18 Surgical History Lithotripsey 02-09-2018 Surgical History left kidney stent 12-27-19 Surgical History LITHOTRIPSEY 01/24/2020 Surgical History STENT REMOVAL 03/03/2021 Surgical History KIDNEY STONES X 3 WITH LASER 02/19/2021 Hospitalization History SEE ABOVE SURGERY Hospitalization History [facility] Hospitalization History COVID 10/2021 [facility] Other 05-31-2022 Progress note Author Misti Connolly [facility] April 13, 2022 11:35am Note Date/Time April 13, 2022 9:33a m [facility] [address] [address] Hem/Onc Follow Up Note - OP Signed Patient: Hailee Trivedi MR#: [id number] : 1940 Acct:[id number] Age/Sex: 81 / F Type: REG RCR [...] neurologist. Head CT done March 2022 at [facility] without new/acute findings. May suggest brain MRI if no other etiologies identified Follow Up Instructions: Irma today and continue every 6 weeks myeloma labs on irma days here cbc, cmp at [facility] prior to treatment follow-up with Dr. Quiroga in 3mo - History of Present Illness Chief Complaint: Patient is here today for 2 month follow up visit for multiple myeloma. 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 [...] been trying to transfer her care to [place] [facility] clinic but they are not up [...] x 1 week, sees neurology (followed at [facility]) who have ruled out stroke, CT [...] 6 mg and cyclophosphamide 300 mg IV [id number]/15/2015, developed grade 2 anemia, fatigue and grade [...] for coordination of care (as documented) and lcan-gm-xnwo counseling of patient and/or family. [facility] - Medical History Medical History: Medical History [...] 01/19/22 09:00 KB (Rec: 01/19/22 09:01 KB [id number]) Distress Screening Distress screening follow up: Will follow with patient for any needs at next visit. Anxious about making next appointment time. - Lab Results Diagram of Most Recent CBC and CMP 04/08/22 13:20 04/08/22 13:20 Labs - Last 7 Days 04/08/22 13:20: Serum Total Protein 5.9 L, Albumin (Send Out) 3.6, Globulin (PEP) 2.3, Albumin/Globulin (PEP) 1.6, Crtwf-3-Lnufilgqu 0.1, Xbkyj-7-Gfiulqlvr 0.8, Beta Globulins 0.7, Gamma Globulins 0.6, M-Krystian Not observed, PEP Note , Free Spiro LC, Quant 17.7, Free Lambda LC, Quant 10.0, Free Spiro/Lambda Ratio 1.77 H 04/08/22 13:20: PHA Creatinine [...] % (Auto) 54.1, Lymph % (Auto) 38.9, [place] % (Auto) 5.8, Eos % (Auto) 0.7, Baso % (Auto) 0.5, Neut # (Auto) 4.6, Lymph # (Auto) 3.3, [place] # (Auto) 0.5, Eos# (Auto) 0.1, Baso [...] <Electronically signed by RAMAKRISHNA Connolly> 04/13/22 1135 [facility] Work Phone: [phone] Hospital Discharge instructions Patient Education 03/08/2022 11:37:40 [...] 10/31/2006 Document Revised: 07/20/2019 Document Reviewed: 09/30/2017 [email or web address] Patient Education 2020 [employer]. 03/08/2022 11:37:40 Calorie Counting for Weight Loss [...] 10/31/2006 Document Revised: 07/20/2019 Document Reviewed: 09/30/2017 [email or web address] Patient Education 2020 [employer]. 03/08/2022 11:37:32 Kidney Stones, Whya-oj-Lsoz Kidney Stones Kidney stones are rock-like masses [...] Follow these instructions at home: Medicines Take jjcx-pjx-jaaxhae and prescription medicines only as told by [...] 04/18/2009 Document Revised: 03/18/2020 Document Reviewed: 03/18/2020 [email or web address] Patient Education 2020 [employer]. Follow Up Care 09/04/2021 09:56:37 With:XAVIER VELAZQUEZ, Tyree Rivers, URL Address: [facility] [address] , [place] [address]- [phone] When:01/08/2023 Comments:10 month carlene MARAVILLA [facility] 03-07-2022 Progress note Author Claire Choi 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 - History of Present Illness Chief Complaint: [...] 6 mg and cyclophosphamide 300 mg IV gddvov2808/15/2015, developed grade 2 anemia, fatigue and grade [...] for coordination of care (as documented) and aajf-kz-httz counseling of patient and/or family. [facility] - Medical History Medical History: Medical History [...] % (Auto) 59.4, Lymph % (Auto) 31.4, [place] % (Auto) 7.2, Eos % (Auto) 0.9, Baso % (Auto) 1.1, Neut # (Auto) 5.4, Lymph # (Auto) 2.8, [place] # (Auto) 0.7, Eos# (Auto) 0.1, Baso [...] by Claire Choi II, DO> 01/18/22 0958 [facility] Work Phone: [phone] Evaluation note* Encounter Date Diagnosis Assessment Notes [...] D-10 - C90.00) Followup with Dr. Bello Marienthal [employer] Other 02-02-2022 Progress note Author Hunter Bello [facility] December 16, 2021 1:18pm Note Date/Time December 16, 2021 1 :17pm [facility] [place] [address] Hem/Onc Follow Up Note - OP Signed Patient: Hailee Trivedi MR#: [id number] : 1940 Acct:[id number] Age/Sex: 81 / F Type: REG RCR [...] 6 mg and cyclophosphamide 300 mg IV rohkpg6808/15/2015, developed grade 2 anemia, fatigue and grade [...] will be to transfer her care to [place] [facility] when [place] [facility] is ready 2. VitB12 injections, monthly, [...] [-], Anxiety [-], Stressed [-] [facility] - Medical History Medical History: Medical History [...] therapy. We will transfer her care to [place] when they are ready. o Continue Daratumumab [...] for coordination of care (as documented) and rfhp-dy-annr counseling of patient and/or family. Dictated By: Hunter Bello MD DD/ 15 Signed By: <Electronically signed by MD Hunter Bello> 12/16/218 [facility] Work Phone: [phone] Progress note Author Hunter Bello [facility] October 06, 2021 10:02am Note Date/Time October 06, 2021 9:58am [facility] [place] [address] Hem/Onc Follow Up Note - OP Signed Patient: Hailee Trivedi MR#: [id number] : 1940 Acct:[id number] Age/Sex: 81 / F Type: REG RCR [...] been trying to transfer her care to [place] [facility] but they are not up [...] 6 mg and cyclophosphamide 300 mg IV bfrlme0808/15/2015, developed grade 2 anemia, fatigue and grade [...] will be to transfer her care to [place] [facility] when [place] [facility] is ready 2. VitB12 injections, monthly, [...] [-], Anxiety [-], Stressed [-] [facility] - Medical History Medical History: Medical History [...] % (Auto) 57.1, Lymph % (Auto) 34.7, [place] % (Auto) 6.1, Eos % (Auto) 0.8, Baso % (Auto) 1.3, Neut # (Auto) 5.1, Lymph # (Auto) 3.1, [place] # (Auto) 0.5, Eos# (Auto) 0.1, Baso [...] therapy. We will transfer her care to [place] when they are ready. o Continue Daratumumab [...] for coordination of care (as documented) and wfrm-ly-znrw counseling of patient and/or family. Dictated By: Hunter Bello MD DD/ 0957 Signed By: <Electronically signed by MD Hunter Bello> 10/06/21 1002 [facility] Work Phone: [phone] Evaluation note* Encounter Date Diagnosis Assessment Notes [...] D-10 - C90.00) Followup with Dr. Bello [employer] Other 10-26-2021 Progress note Author Hunter Bello [facility] September 08, 2021 11:19am Note Date/Time September 08, 2021 1 1:17am [facility] [place] [address] Hem/Onc Follow Up Note - OP Signed Patient: Hailee Trivedi MR#: [id number] : 1940 Acct:[id number] Age/Sex: 81 / F Type: REG RCR [...] and then transferring her care to the [place] [facility]. She will be getting monthly [...] 6 mg and cyclophosphamide 300 mg IV qmdxmp2908/15/2015, developed grade 2 anemia, fatigue and grade [...] will be to transfer her care to [place] [facility]. 2. VitB12 injections, monthly, switched [...] [-], Anxiety [-], Stressed [-] [facility] - Medical History Medical History: Medical History [...] % (Auto) 59.8, Lymph % (Auto) 31.4, [place] % (Auto) 7.0, Eos % (Auto) 1.2, Baso % (Auto) 0.6, Neut # (Auto) 5.4, Lymph # (Auto) 2.8, [place] # (Auto) 0.6, Eos# (Auto) 0.1, Baso [...] therapy See me in 1 month in [place] for monthly daratumumab. (2) B12 deficiency anemia [...] for coordination of care (as documented) and fiqf-sg-mvlg counseling of patient and/or family. Dictated By: Hunter Bello MD DD/ 1116 Signed By: <Electronically signed by MD Hunter Bello> 09/08/21 1119 [facility] Work Phone: [phone] History of Present illness Narrative* Patient is [...] recurrence. She did have noninvasive assessment at [facility], which was negative. Couple of years [...] of change in cardiac status or symptoms -[facility] [address] DO Work Phone: [phone] 156-763708-03-2021 Progress note Author Mike Bradley [facility] June 16, 2021 9:35am Note Date/Time June 16, 2021 9:2 9am [facility] [place] [id number] Hem/Onc Follow Up Note - OP Signed Patient: Hailee Trivedi MR#: [id number] : 1940 Acct:[id number] Age/Sex: 81 / F Type: REG RCR [...] M-spike of 0.2 g/dL with an IgG Spiro specificity. She hadn't had a previous SPEP [...] 6 mg and cyclophosphamide 300 mg IV vvyzbl8208/15/2015, developed grade 2 anemia, fatigue and grade [...] [-], Anxiety [-], Stressed [-] [facility] - Medical History Medical History: Medical History [...] % (Auto) 34.5 % (.) 06/09/21 09:40 [place] % (Auto) 5.6 % (.) 06/09/21 09:40 Eos % (Auto) 1.1 % (.) 06/09/21 09:40 Baso % (Auto) 0.6 % (.) 06/09/21 09:40 Neut # (Auto) 4.4 x10E3/uL (1.8-7.7) 06/09/21 09:40 Lymph # (Auto) 2.6 x10E3/uL (1.00-4.8) 06/09/21 09:40 [place] # (Auto) 0.4 x10E3/uL (0.0-0.8) 06/09/21 09:40 [...] 09:40 Albumin/Globulin (PEP) 1.3 (0.7-1.7) 06/09/21 09:40 Cghzh-8-Neiucnzff 0.2 g/dL (0.0-0.4) 06/09/21 09:40 Dljlr-4-Vvwlbwxga 0.9 g/dL (0.4-1.0) 06/09/21 09:40 Beta Globulins [...] Urine pH (5.0-9.0) 02/24/21 12:05 Ur Specific [place] 1.009 (1.001-1.030) 02/24/21 12:05 Urine Protein mg/dL [...] 125 mg/24 hr (30-150) 06/09/21 09:28 U Uxcnv-9-Cdzzzifw 4.3 % (.) 06/09/21 09:28 U Ylfrd-8-Ggpinqlk 16.0 % (.) 06/09/21 09:28 U Beta [...] Ab 0.9 AU/mL (0.0-1.1) 02/28/19 11:21 Free Spiro LC, Quant 20.1 mg/L (3.3-19.4) H 06/09/21 09:40 Free Lambda LC, Quant 11.9 mg/L (5.7-26.3) 06/09/21 09:40 Free Spiro/Lambda Ratio 1.69 (0.26-1.65) H 06/09/21 09:40 Assessment [...] for coordination of care (as documented) and ztpq-gd-vpuf counseling of patient and/or family. Dictated By: Mike Bradley MD DD/ 7 Signed By: <Electronically signed by Mike Bradley MD> 06/16/21 0935 [facility] Work Phone: [phone] Progress note Author Mike Bradley [facility] May 19, 2021 2:08pm Note Date/Time May 19, 2021 1:50p m [facility] at [address] [address] Hem/Onc Follow Up Note - OP Signed Patient: Hailee Trivedi MR#: [id number] : 1940 Acct:[id number] Age/Sex: 81 / F Type: REG RCR [...] 6 mg and cyclophosphamide 300 mg IV cfkxco5308/15/2015, developed grade 2 anemia, fatigue and grade [...] [-], Anxiety [-], Stressed [-] [facility] - Medical History Medical History: Medical History [...] % (Auto) 34.2 % (.) 04/14/21 11:10 [place] % (Auto) 5.7 % (.) 04/14/21 11:10 Eos % (Auto) 1.1 % (.) 04/14/21 11:10 Baso % (Auto) 0.6 % (.) 04/14/21 11:10 Neut # (Auto) 5.0 x10E3/uL (1.8-7.7) 04/14/21 11:10 Lymph # (Auto) 2.9 x10E3/uL (1.00-4.8) 04/14/21 11:10 [place] # (Auto) 0.5 x10E3/uL (0.0-0.8) 04/14/21 11:10 [...] Urine pH (5.0-9.0) 02/24/21 12:05 Ur Specific [place] 1.009 (1.001-1.030) 02/24/21 12:05 Urine Protein mg/dL [...] Ab 0.9 AU/mL (0.0-1.1) 02/28/19 11:21 Free Spiro LC, Quant 17.8 mg/L (3.3-19.4) 04/14/21 11:10 Free Lambda LC, Quant 9.2 mg/L (5.7-26.3) 04/14/21 11:10 Free Spiro/Lambda Ratio 1.93 (0.26-1.65) H 04/14/21 11:10 Assessment [...] for coordination of care (as documented) and pqyf-cw-sqiq counseling of patient and/or family. Dictated By: Mike Bradley MD DD/ 1349 Signed By: <Electronically signed by Mike Bradley MD> 05/19/21 1400 [facility] Work Phone: [phone] 524-705605-11-2021 Progress note Author Margarito Buenrostro [facility] March 24, 2021 12:36pm Note Date/Time March 24, 2021 12:33 pm [facility] [place] [address] Hem/Onc Follow Up Note - OP Signed Patient: Hailee Trivedi MR#: [id number] : 1940 Acct:[id number] Age/Sex: 80 / F Type: REG RCR [...] 6 mg and cyclophosphamide 300 mg IV lllhlp6908/15/2015, developed grade 2 anemia, fatigue and grade [...] - Last 7 Days 03/17/21 13:30: Free Spiro LC, Quant 28.8 H, Free Lambda LC, Quant 13.2, Free Spiro/Lambda Ratio 2.18 H 03/17/21 13:30: Corrected WBC 6.1, Uncorrected WBC Count 6.1, RBC 3.56 L, Hgb 11.7 L, Hct 34.3, MCV 96.4, MCH 32.8, MCHC 34.0, RDW 13.7, Plt Count 227, MPV 10.2, Neut % (Auto) 40.5, Lymph % (Auto) 47.8, [place] % (Auto) 10.6, Eos % (Auto) 0.6, Baso % (Auto) 0.5, Neut # (Auto) 2.5, Lymph # (Auto) 2.9, [place] # (Auto) 0.6, Eos # (Auto) 0.0, [...] for coordination of care (as documented) and znty-zz-hans counseling of patient and/or family. Dictated By: Margarito Buenrostro MD DD/ 123 Signed By: <Electronically signed by Margarito Buenrostro MD> 03/24/21 1236 [facility] Work Phone: [phone] Progress note Author Margarito Buenrostro [facility] February 06, 2021 10:35am Note Date/Time February 06, 2021 10: 32am [facility] [place] [address] Hem/Onc Follow Up Note - OP Signed Patient: Hailee Trivedi MR#: [id number] : 1940 Acct:[id number] Age/Sex: 80 / F Type: REG RCR [...] 6 mg and cyclophosphamide 300 mg IV ezamxp0908/15/2015, developed grade 2 anemia, fatigue and grade [...] % (Auto) 64.7, Lymph % (Auto) 27.2, [place] % (Auto) 6.2, Eos % (Auto) 1.5, Baso % (Auto) 0.4, Neut # (Auto) 4.7, Lymph # (Auto) 2.0, [place] # (Auto) 0.5, Eos# (Auto) 0.1, Baso [...] for coordination of care (as documented) and owzm-pp-jgtj counseling of patient and/or family. Dictated By: Margarito Buenrostro MD DD/ 1031 Signed By: <Electronically signed by Margarito Buenrostro MD> 02/06/21 1035 [facility] Work Phone: [phone] Progress note Author Margarito Buenrostro [facility] January 08, 2021 10:17am Note Date/Time January 08, 2021 10:14am [facility] [place] [id number] Hem/Onc Follow Up Note - OP Signed Patient: Hailee Trivedi MR#: [id number] : 1940 Acct:[id number] Age/Sex: 80 / F Type: REG RCR [...] 6 mg and cyclophosphamide 300 mg IV kxybzw1308/15/2015, developed grade 2 anemia, fatigue and grade [...] History (Last Reviewed 04/16/20 @ 09:37 by aCrol Younger APRN) History of cholecystectomy History of [...] plan to see in 4 weeks, repeat Spiro/lambda ratio in6-8 weeks. -Continue Acyclovir 400mg bid [...] for coordination of care (as documented) and bwmg-sm-lhij counseling of patient and/or family. Dictated By: Margarito Buenrostro MD DD/ 1013 Signed By: <Electronically signed by Margarito Buenrostro MD> 01/08/21 1017 [facility] Work Phone: [phone] Progress note Author Margarito Buenrostro [facility] December 02, 2020 12:29pm Note Date/Time December 02, 2020 1 2:27pm [facility] [place] [address] Hem/Onc Follow Up Note - OP Signed Patient: Hailee Trivedi MR#: [id number] : 1940 Acct:[id number] Age/Sex: 80 / F Type: REG RCR [...] 6 mg and cyclophosphamide 300 mg IV mvtpsv6908/15/2015, developed grade 2 anemia, fatigue and grade [...] plan to start in 4 weeks, repeat Spiro/lambda ratio in 6weeks. -Continue Acyclovir 400mg bid [...] for coordination of care (as documented) and zczo-xb-osta counseling of patient and/or family. Dictated By: Margarito Buenrostro MD DD/ 1226 Signed By: <Electronically signed by Margarito Buenrostro MD> 12/02/20 9490 [facility] Work Phone: [phone] 140-614312-22-2020 Progress note Author Margarito Buenrostro [facility] November 04, 2020 1:30pm Note Date/Time November 04, 2020 1:22pm [facility] [address] [address] Hem/Onc Follow Up Note - OP Signed Patient: Hailee Trivedi MR#: [id number] : 1940 Acct:[id number] Age/Sex: 80 / F Type: REG RCR [...] 6 mg and cyclophosphamide 300 mg IV saklin1608/15/2015, developed grade 2 anemia, fatigue and grade [...] - Last 7 Days 10/28/20 11:11: Free Spiro LC, Quant , Free Lambda LC, Quant , Free Spiro/LambdaRatio Order Spiro Free K+L Assessment and Plan (1) Multiple [...] to treatment, see in 4 weeks. Her Spiro/lambda ratio was not drawn, will draw today. [...] for coordination of care (as documented) and xkib-zh-hspe counseling of patient and/or family. Dictated By: Margarito Buenrostro MD DD/ 1317 Signed By: <Electronically signed by Margarito Buenrostro MD> 11/04/20 1330 [facility] Work Phone: [phone] Progress note Author Margarito Buenrostro [facility] October 07, 2020 10:20am Note Date/Time October 07, 2020 10:18am [facility] [place] [address] Hem/Onc Follow Up Note - OP Signed Patient: Hailee Trivedi MR#: [id number] : 1940 Acct:[id number] Age/Sex: 80 / F Type: REG RCR [...] 6 mg and cyclophosphamide 300 mg IV hmmkzm7008/15/2015, developed grade 2 anemia, fatigue and grade [...] see in 4 weeks. Plan to repeat Spiro/lambda ratio in 3 weeks. -Continue Acyclovir 400mg [...] was for coordination of care(as documented) and udlm-is-utbf counseling of patient and/or family. Dictated By: Margarito Buenrostro MD DD/ 1017 Signed By: <Electronically signed by Margarito Buenrostro MD> 10/07/20 1020 [facility] Work Phone: [phone] Progress note Author Margarito Buenrostro [facility] September 09, 2020 10:20am Note Date/Time September 09, 2020 1 0:18am [facility] [place] [address] Hem/Onc Follow Up Note - OP Signed Patient: Hailee Trivedi MR#: [id number] : 1940 Acct:[id number] Age/Sex: 80 / F Type: REG RCR [...] 6 mg and cyclophosphamide 300 mg IV azztpd0008/15/2015, developed grade 2 anemia, fatigue and grade [...] History (Last Reviewed 04/16/20 @ 09:37 by aCrol Younger APRN) History of cholecystectomy History of [...] - Last 7 Days 09/01/20 10:35: Free Spiro LC, Quant 19.8 H, Free Lambda LC, Quant 11.2, Free Spiro/Lambda Ratio 1.77 H Assessment and Plan (1) [...] see in 4 weeks. Plan to repeat Spiro/lambda ratio in 7 weeks. -Continue Acyclovir 400mg [...] was for coordination of care(as documented) and pdth-gk-byzx counseling of patient and/or family. Dictated By: Margarito Buenrostro MD DD/ 1017 Signed By: <Electronically signed by Margarito Buenrostro MD> 09/09/20 1020 [facility] Work Phone: [phone] Progress note Author Margarito Buenrostro [facility] August 12, 2020 11:28am Note Date/Time August 12, 2020 11:25am [facility] [place] [address] Hem/Onc Follow Up Note - OP Signed Patient: Hailee Trivedi MR#: [id number] : 1940 Acct:[id number] Age/Sex: 80 / F Type: REG RCR [...] 6 mg and cyclophosphamide 300 mg IV pqeqal5308/15/2015, developed grade 2 anemia, fatigue and grade [...] see in 4 weeks. Plan to repeat Spiro/lambda ratio in 3 weeks. -Continue Acyclovir 400mg [...] was for coordination of care(as documented) and mpdr-pa-lwxd counseling of patient and/or family. Dictated By: Margarito Buenrostro MD DD/ Signed By: <Electronically signed by Margarito Buenrostro MD> 08/12/20 1128 [facility] Work Phone: [phone] 586-239009-01-2020 Progress note Author Margarito Buenrostro [facility] July 15, 2020 10:42am Note Date/Time July 15, 2020 10:40am [facility] [place] [address] Hem/Onc Follow Up Note - OP Signed Patient: Hailee Trivedi MR#: [id number] : 1940 Acct:[id number] Age/Sex: 80 / F Type: REG RCR [...] 6 mg and cyclophosphamide 300 mg IV janqji3908/15/2015, developed grade 2 anemia, fatigue and grade [...] - Last 7 Days 07/07/20 11:10: Free Spiro LC, Quant 18.5, Free Lambda LC, Quant 11.7, Free Spiro/Lambda Ratio 1.58 Assessment and Plan (1) Multiple [...] see in 4 weeks. Plan to repeat Spiro/lambda ratio in 8 weeks. -Continue Acyclovir 400mg [...] for coordination of care (as documented) and cvcj-cu-mgvp counseling of patient and/or family. Dictated By: Margarito Buenrostro MD DD/ 1039 Signed By: <Electronically signed by Margarito Buenrostro MD> 07/15/20 1042 [facility] Work Phone: [phone] Progress note Author Margarito Buenrostro [facility] June 17, 2020 10:25am Note Date/Time June 17, 2020 10: 22am [facility] [address] [address] Hem/Onc Follow Up Note - OP Signed Patient: Hailee Trivedi MR#: [id number] : 1940 Acct:[id number] Age/Sex: 80 / F Type: REG RCR [...] 6 mg and cyclophosphamide 300 mg IV lkzvas9108/15/2015, developed grade 2 anemia, fatigue and grade [...] see in 4 weeks. Plan to repeat Spiro/lambda ratio in 4 weeks. -Continue Acyclovir 400mg [...] was for coordination of care(as documented) and iafy-sy-bdyf counseling of patient and/or family. Dictated By: Margarito Buenrostro MD DD/ 1022 Signed By: <Electronically signed by Margarito Buenrostro MD> 06/17/20 1025 [facility] Work Phone: [phone] Progress note Author Margarito Buenrostro [facility] May 20, 2020 10:10am Note Date/Time May 20, 2020 10:00 am [facility] [address] [address] Hem/Onc Follow Up Note - OP Signed Patient: Hailee Trivedi MR#: [id number] : 1940 Acct:[id number] Age/Sex: 80 / F Type: REG RCR [...] 6 mg and cyclophosphamide 300 mg IV lqrftj3308/15/2015, developed grade 2 anemia, fatigue and grade [...] - Last 7 Days 05/13/20 10:09: Free Spiro LC, Quant 18.5, Free Lambda LC, Quant 9.6, Free Spiro/Lambda Ratio 1.93 H 05/13/20 10:09: PHA Creatinine Clear [id number], Sodium 138, Potassium 4.6, Chloride 112, Carbon [...] Neut % (Auto) 59.3,Lymph % (Auto) 31.6, [place] % (Auto) 7.5, Eos % (Auto) 1.1, Baso % (Auto) 0.5, Neut # (Auto) 4.6, Lymph # (Auto) 2.4, [place] # (Auto) 0.6, Eos # (Auto) 0.1, [...] see in 4 weeks. Plan to repeat Spiro/lambda ratio in 8 weeks. We will update [...] for coordination of care (as documented) and ipxn-lv-pxjp counseling of patient and/or family. Dictated By: Margarito Buenrostro MD DD/ 0958 Signed By: <Electronically signed by Margarito Buenrostro MD> 05/20/20 1010 [facility] Work Phone: [phone] Progress note Author Carol Younger [facility] April 16, 2020 10:49am Note Date/Time April 16, 2020 9:10a m [facility] [address] [address] Hem/Onc Follow Up Note - OP Signed Patient: Hailee Trivedi MR#: [id number] : 1940 Acct:[id number] Age/Sex: 79 / F Type: REG RCR [...] 6 mg and cyclophosphamide 300 mg IV unswmz9608/15/2015, developed grade 2 anemia, fatigue and grade [...] History (Last Reviewed 04/16/20 @ 09:36 by Carlo Younger APRN) Afib CKD (chronic kidney disease) [...] - Last 7 Days 04/09/20 09:35: Free Spiro LC, Quant 16.6, Free Lambda LC, Quant 9.8, Free Spiro/Lambda Ratio 1.69 H 04/09/20 09:35: PHA Creatinine Clear 19.0273717436, Sodium 138, Potassium 4.6, Chloride 111, Carbon [...] Neut % (Auto) 62.6,Lymph % (Auto) 29.5, [place] % (Auto) 5.8, Eos % (Auto) 1.5, Baso % (Auto) 0.6, Neut # (Auto) 4.2, Lymph # (Auto) 2.0, [place] # (Auto) 0.4, Eos # (Auto) 0.1, [...] The patient is also followed by nephrology -Spiro/lambda ratio mild improvement 1.69 -Continue Acyclovir 400mg [...] for coordination of care (as documented) and jqtd-oj-dyaj counseling of patient and/or family. Dictated By: Carol Younger APRN DD/ 0909 Signed By: <Electronically signed by RAMAKRISHNA Younger> 04/16/20 1049 [facility] Work Phone: [phone] Progress note Author Margarito Buenrostro [facility] March 19, 2020 8:55am Note Date/Time March 19, 2020 8:37[facility] [place] [address] Hem/Onc Follow Up Note - OP Signed Patient: Hailee Trivedi MR#: [id number] : 1940 Acct:[id number] Age/Sex: 79 / F Type: REG RCR [...] 6 mg and cyclophosphamide 300 mg IV tqakxo1408/15/2015, developed grade 2 anemia, fatigue and grade [...] for coordination of care (as documented) and sjwf-fm-ytna counseling of patient and/or family. Dictated By: Margarito Buenrostro MD DD/ Signed By: <Electronically signed by Margarito Buenrostro MD> 03/19/20 0855 [facility] Work Phone: [phone] Progress note Author Margarito Buenrostro [facility] January 09, 2020 9:15am Note Date/Time January 09, 2020 9:12am [facility] [address] [address] Hem/Onc Follow Up Note - OP Signed Patient: Hailee Trivedi MR#: [id number] : 1940 Acct:[id number] Age/Sex: 79 / F Type: REG RCR [...] 6 mg and cyclophosphamide 300 mg IV wmfzqq7608/15/2015, developed grade 2 anemia, fatigue and grade [...] Neut % (Auto) 64.3,Lymph % (Auto) 25.2, [place] % (Auto) 7.0, Eos % (Auto) 3.0, Baso % (Auto) 0.5, Neut # (Auto) 4.3, Lymph # (Auto) 1.7, [place] # (Auto) 0.5, Eos # (Auto) 0.2, Baso# (Auto) 0.0, Nucleated RBC % (auto) 0.0 01/03/20 09:10: Free Spiro LC, Quant 17.3, Free Lambda LC, Quant 10.2, Free Spiro/Lambda Ratio 1.70 H Assessment and Plan (1) [...] and sustained response. -Labs adequate to treat, Spiro light chain level slightly trend upwards, but still stable, will proceed to Daratumumab today, will see her back in 6 weeks, plan to repeat K/L light chains in 5 weeks ahead of time, if Spiro light chain continue to go up, plan [...] for coordination of care (as documented) and oyrc-ap-wtug counseling of patient and/or family. Dictated By: Margarito Buenrostro MD DD/ 0 Signed By: <Electronically signed by Margarito Buenrostro MD> 01/09/20914 [facility] Work Phone: [phone] Progress note Author Margarito Buenrostro [facility] November 28, 2019 10:50am Note Date/Time November 28, 2019 9 :43am [facility] [place] [address] Hem/Onc Follow Up Note - OP Signed Patient: Hailee Trivedi MR#: [id number] : 1940 Acct:[id number] Age/Sex: 79 / F Type: REG RCR [...] 6 mg and cyclophosphamide 300 mg IV uorayo6308/15/2015, developed grade 2 anemia, fatigue and grade [...] - Last 7 Days 11/20/19 14:30: Free Spiro LC, Quant 14.5, Free Lambda LC, Quant 7.7, Free Spiro/Lambda Ratio 1.88 H Assessment and Plan (1) [...] and sustained response. -Labs adequate to treat, Spiro light chain level slightly trend upwards, will proceed to Daratumumab today, will see her back in 6 weeks, plan to repeat K/L light chains in 5 weeks ahead of time, if Spiro light chain continue to go up, plan [...] for coordination of care (as documented) and ltei-xt-hyyp counseling of patient and/or family. Dictated By: Margarito Buenrostro MD DD/ 0943 Signed By: <Electronically signed by Margarito Buenrostro MD> 11/28/19 1050 [facility] Work Phone: [phone] 204-142112-04-2019 Progress note Author Margarito Buenrostro [facility] October 17, 2019 9:37am Note Date/Time October 17, 2019 9 :30am [facility] [place] [address] Hem/Onc Follow Up Note - OP Signed Patient: Hailee Trivedi MR#: [id number] : 1940 Acct:[id number] Age/Sex: 79 / F Type: REG RCR Copies to: Curt Clark MD~ Subjective Date/Time of Service: Date of Service: 10/17/2019 Time of Service: 09:26 Chief Complaint: Follow up appt prior to treatment doing well HPI: Hailee presents for routine follow up; prior to Daratumumab. Patient reports left leg sudden onset weakness last Tuesday while she was drawing labs at [facility]. She elected to not stay. This [...] 6 mg and cyclophosphamide 300 mg IV hfucun4308/15/2015, developed grade 2 anemia, fatigue and grade [...] for coordination of care (as documented) and gkxq-vs-wlqf counseling of patient and/or family. Dictated By: Margarito Buenrostro MD DD/ 5 Signed By: <Electronically signed by Margarito Buenrostro MD> 10/17/1937 [facility] Work Phone: 1([phone] Progress note Author Margarito Buenrostro [facility] July 25, 2019 8:31am Note Date/Time July 25, 2019 8:30am [facility] [place] [address] Hem/Onc Follow Up Note - OP Signed Patient: Hailee Trievdi MR#: [id number] : 1940 Acct:[id number] Age/Sex: 79 / F Type: REG RCR [...] 6 mg and cyclophosphamide 300 mg IV xexyjq4508/15/2015, developed grade 2 anemia, fatigue and grade [...] - Last 7 Days 07/18/19 08:54: Free Spiro LC, Quant 16.4, Free Lambda LC, Quant 10.9, Free Spiro/Lambda Ratio 1.50 07/18/19 08:54: PHA Creatinine Clear [id number], Sodium 139, Potassium 4.6, Chloride 110, Carbon [...] % (Auto) 64.4, Lymph % (Auto) 27.6, [place] % (Auto) 6.8, Eos % (Auto) 0.7, Baso % (Auto) 0.5, Neut # (Auto) 4.2, Lymph # (Auto) 1.8, [place] # (Auto) 0.4, Eos # (Auto) 0.0,Baso [...] for coordination of care (as documented) and vvbq-of-mdsa counseling of patient and/or family. Dictated By: Margarito Buenrostro MD DD/ 9 Signed By: <Electronically signed by Margarito Buenrostro MD> 07/25/19830 [facility] Work Phone: 1([phone] Progress note Author Margarito Buenrostro [facility] June 13, 2019 8:37am Note Date/Time June 13, 2019 8:34 am [facility] [place] [address] Hem/Onc Follow Up Note - OP Signed Patient: Hailee Trivedi MR#: [id number] : 1940 Acct:[id number] Age/Sex: 79 / F Type: REG RCR Copies to: Curt Clark MD~ Subjective Date/Time of Service: Date of Service: 06/13/2019 Time of Service: 08:34 Chief Complaint: Follow up appt prior to treatment - Diagnosis DIAGNOSIS: DIAGNOSIS: 1. 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 [...] CVA 2018. SOCIAL HISTORY: Lives with in [place]. HPI: Hailee presents for routine follow up; [...] 6 mg and cyclophosphamide 300 mg IV ygvhao4408/15/2015, developed grade 2 anemia, fatigue and grade [...] for coordination of care (as documented) and rqih-ys-apoc counseling of patient and/or family. Dictated By: Margarito Buenrostro MD DD/ 3 Signed By: <Electronically signed by Margarito Buenrostro MD> 06/13/1937 [facility] Work Phone: [phone] Progress note Author Margarito Buenrostro [facility] May 02, 2019 8:38am Note Date/Time May 02, 2019 8:33 am [facility] [place] [address] Hem/Onc Follow Up Note - OP Signed Patient: Hailee Trivedi MR#: [id number] : 1940 Acct:[id number] Age/Sex: 78 / F Type: REG RCR Copies to: Curt Clark MD~ Subjective Date/Time of Service: Date of Service: 05/02/2019 Time of Service: 08:32 Chief Complaint: Follow up appt prior to treatment no new concerns - Diagnosis DIAGNOSIS: DIAGNOSIS: 1. 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 [...] CVA 2018. SOCIAL HISTORY: Lives with in [place]. HPI: Hailee presents for routine follow up; [...] 6 mg and cyclophosphamide 300 mg IV whstpi1708/15/2015, developed grade 2 anemia, fatigue and grade [...] - Last 7 Days 04/25/19 11:05: Free Spiro LC, Quant 16.9, Free Lambda LC, Quant 10.8, Free Spiro/Lambda Ratio 1.56 04/25/19 11:05: WBC 6.5, Corrected WBC 6.5, RBC 3.81, Hgb 12.2, Hct 36.4, MCV 95.7, MCH 32.1, MCHC 33.6, RDW 13.7, Plt Count 182, MPV 9.9, Neut % (Auto) 65.0,Lymph % (Auto) 26.9, [place] % (Auto) 7.0, Eos % (Auto) 0.6, Baso % (Auto) 0.5, Neut # (Auto) 4.2, Lymph # (Auto) 1.8, [place] # (Auto) 0.5, Eos # (Auto) 0.0, [...] for coordination of care (as documented) and dsxo-bp-ubpf counseling of patient and/or family. Dictated By: Margarito Buenrostro MD DD/ 1 Signed By: <Electronically signed by Margarito Buenrostro MD> 05/02/1936 [facility] Work Phone: [phone] Progress note Author Margarito Buenrostro [facility] March 07, 2019 10:22am Note Date/Time March 07, 2019 10: 19am [facility] at [address] [address] Hem/Onc Follow Up Note - OP Signed Patient: Hailee Trivedi MR#: [id number] : 1940 Acct:[id number] Age/Sex: 78 / F Type: REG RCR Copies to: Curt Clark MD~ Subjective Date/Time of Service: Date of Service: 03/07/2019 Time of Service: 08:16 Chief Complaint: Follow up appt prior to treatment - Diagnosis DIAGNOSIS: DIAGNOSIS: 1. 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 [...] CVA 2018. SOCIAL HISTORY: Lives with in [place]. HPI: Hailee presents for routine follow up; [...] 6 mg and cyclophosphamide 300 mg IV ignyhf29/12/2014, developed grade 2 anemia, fatigue and grade [...] Joseph Block M.D.01/02/2019 10:11 AM Dictation Location: [facility] Any impression(s) listed above is documentation [...] for coordination of care (as documented) and cdlu-vx-iezv counseling of patient and/or family. Dictated By: Margarito Buenrostro MD DD/ 1016 Signed By: <Electronically signed by Margarito Buenrostro MD> 03/07/19 9640 [facility] Work Phone: [phone] Progress note Author Margarito Buenrostro [facility] January 10, 2019 8:49am Note Date/Time January 10, 2019 8:43am [facility] [place] [id number] Hem/Onc Follow Up Note - OP Signed Patient: Hailee Trivedi MR#: [id number] : 1940 Acct:[id number] Age/Sex: 78 / F Type: REG RCR Copies to: Curt Clark MD~ Subjective Date/Time of Service: Date of Service: 01/10/2019 Time of Service: 08:42 Chief Complaint: Follow up appt prior to treatment has had leg weakness - Diagnosis DIAGNOSIS: DIAGNOSIS: 1. 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 [...] CVA 2018. SOCIAL HISTORY: Lives with in [place]. HPI: Hailee presents for routine follow up; prior to Cycle 19 Daratumumab. Patient had sudden onset weakness during blood draw for her labs last week, she was evaluated by ER, CT head at that point did not evidence of bleeding. She was released, she is currently wearing a etcher aircraft. Her legs are little weak,otherwise she has [...] 6 mg and cyclophosphamide 300 mg IV enehkx5408/15/2015, developed grade 2 anemia, fatigue and grade [...] - Last 7 Days 01/02/19 09:35: Free Spiro LC, Quant 14.9, Free Lambda LC, Quant 8.9, Free Spiro/Lambda Ratio 1.67 H - Impressions ITS Impressions [...] Joseph Block M.D.01/02/2019 10:11 AM Dictation Location: [facility] Any impression(s) listed above is documentation [...] for coordination of care (as documented) and pzmt-xj-neoz counseling of patient and/or family. Dictated By: Margarito Buenrostro MD DD/ Signed By: <Electronically signed by Margarito Buenrostro MD> 01/10/1947 [facility] Work Phone: [phone] Progress note Author Anna Marie Mcnamara [facility] January 02, 2019 4:51pm Note Date/Time January 02, 2019 4:51pm [facility] [address] [place] [address] Event Note Signed Patient: Hailee Trivedi MR#: [id number] : 1940 Acct:[id number] Age/Sex: 78 / F Adm Date: 9 Loc: XT Room: Type: [facility] Attending Dr: Margarito Buenrostro MD Copies to: [...] Documented By: Anna Marie Mcnamara MD 01/02/19 1640 Signed By: <Electronically signed by Anna Marie Mcnamara MD> 01/02/19 1651 [facility] Work Phone: 1([phone] 453-648301-02-2019 Progress note Author Margarito Buenrostro [facility] November 15, 2018 8:49am Note Date/Time November 15, 2018 8: 45am [facility] [place] [address] Hem/Onc Follow Up Note - OP Signed Patient: Hailee Trivedi MR#: [id number] : 1940 Acct:[id number] Age/Sex: 78 / F Type: REG RCR Copies to: Curt Clark MD~ Subjective Date/Time of Service: Date of Service: 11/15/2018 Time of Service: 08:43 Chief Complaint: Follow up appt myloma no new concerns - Diagnosis DIAGNOSIS: DIAGNOSIS: 1. 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 [...] CVA 2018. SOCIAL HISTORY: Lives with in [place]. HPI: Hailee presents for routine follow up; [...] 6 mg and cyclophosphamide 300 mg IV gzkwip5608/15/2015, developed grade 2 anemia, fatigue and grade [...] for coordination of care (as documented) and qpmj-ba-frgf counseling of patient and/or family. Dictated By: Margarito Buenrostro MD DD/ 0843 Signed By: <Electronically signed by Margarito Buenrostro MD> 11/15/18 0849 [facility] Work Phone: [phone] Progress note Author Lisa Devine [facility] October 18, 2018 9:34am Note Date/Time October 18, 2018 9 :30am [facility] [address] [address] Hem/Onc Follow Up Note - OP Signed Patient: Hailee Trivedi MR#: [id number] : 1940 Acct:[id number] Age/Sex: 78 / F Type: REG RCR Copies to: Curt Clark MD~ Subjective Date/Time of Service: Date of Service: 10/18/2018 Time of Service: 09:27 Chief Complaint: Patient here for one month follow up appointment for Multiple myeloma to be seen before C16 Daratumumab. - Diagnosis DIAGNOSIS: DIAGNOSIS: 1. 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 [...] DM-II, CKD-3. SOCIAL HISTORY: Lives with in [place]. HPI: Hailee presents for routine follow up; [...] 6 mg and cyclophosphamide 300 mg IV yjiegt5008/15/2015, developed grade 2 anemia, fatigue and grade [...] HAILEE IgA 65, HAILEE IgM 38, Free Spiro LC, Quant 15.8, Free Lambda LC, Quant 9.7, Free Spiro/Lambda Ratio 1.63 10/13/18 09:10: PHA Creatinine Clear 24.5337061978, Sodium 137, Potassium 4.1, Chloride 107, Carbon [...] % (Auto) 64.5, Lymph % (Auto) 27.4, [place] % (Auto) 6.8, Eos % (Auto) 0.8, Baso % (Auto) 0.5, Neut # (Auto) 4.2, Lymph # (Auto) 1.8, [place] # (Auto) 0.4, Eos # (Auto) 0.1, [...] for coordination of care (as documented) and niqh-ss-gwxd counseling of patient and/or family. Dictated By: Lisa Devine DD/ 0927 Signed By: <Electronically signed by Lisa Devine> 10/18/18 0934 [facility] Work Phone: [phone] 371-354611-07-2018 Progress note Author Jacklyn Cornelius [facility] September 20, 2018 8:53am Note Date/Time September 20, 2018 8 :43am [facility] at [address] [address] Hem/Onc Follow Up Note - OP Signed Patient: Hailee Trivedi MR#: [id number] : 1940 Acct:[id number] Age/Sex: 78 / F Type: REG RCR Copies to: Curt Clark MD~ Subjective Date/Time of Service: Date of Service: 09/20/2018 Time of Service: 08:38 Chief Complaint: Multiple myeloma follow up appt day of treatment continues to have some dizziness - Diagnosis DIAGNOSIS: 1. 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 [...] DM-II, CKD-3. SOCIAL HISTORY: Lives with in [place]. HPI: Mrs. Bright is here today to [...] an MRI of the brain done at [place] under the direction of the neurologist. It [...] 6 mg and cyclophosphamide 300 mg IV mtbhjc1208/15/2015, developed grade 2 anemia, fatigue and grade [...] - Last 7 Days 09/13/18 11:15: Free Spiro LC, Quant 15.3, Free Lambda LC, Quant 13.0, Free Spiro/Lambda Ratio 1.18 09/13/18 11:15: PHA Creatinine Clear 21.4020656252, Sodium 140, Potassium 4.6, Chloride 109, Carbon [...] % (Auto) 58.9, Lymph % (Auto) 30.7, [place] % (Auto) 8.9, Eos % (Auto) 1.2, Baso % (Auto) 0.3, Neut # (Auto) 3.5, Lymph # (Auto) 1.8, [place] # (Auto) 0.5, Eos # (Auto) 0.1, [...] for coordination of care (as documented) and uwxr-zi-garw counseling of patient and/or family. 25 - 35 minutes Dictated By: Jacklyn Cornelius MD DD/ 0838 Signed By: <Electronically signed by Jacklyn Cornelius MD> 09/20/18 0853 [facility] Work Phone: [phone] Progress note Author Margarito Buenrostro [facility] August 09, 2018 9:41am Note Date/Time August 09, 2018 9:29am [facility] [place] [address] Hem/Onc Follow Up Note - OP Signed Patient: Hailee Trivedi MR#: [id number] : 1940 Acct:[id number] Age/Sex: 78 / F Type: REG RCR Copies to: Curt Clark MD~ Subjective Date/Time of Service: Date of Service: 08/09/2018 Time of Service: 09:28 Chief Complaint: Follow up appt on treatment multiple myeloma has infected toothbeing treated - Diagnosis DIAGNOSIS: 1. 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 [...] DM-II, CKD-3. SOCIAL HISTORY: Lives with in [place]. HPI: Mrs. Trivedi is seen as scheduled. [...] 6 mg and cyclophosphamide 300 mg IV xnaave2908/15/2015, developed grade 2 anemia, fatigue and grade [...] her MRI report (to be done in [place]). See in 5 weeks by SHAHID Bell, [...] for coordination of care (as documented) and lclz-sz-uoke counseling of patient and/or family. 25 - 35 minutes Dictated By: Margarito Buenrostro MD DD/ 6 Signed By: <Electronically signed by Margarito Buenrostro MD> 08/09/18940 [facility] Work Phone: [phone] Progress note Author Margarito Buenrostro [facility] July 12, 2018 9:09am Note Date/Time July 12, 2018 8: 33am [facility] [place] [address] Hem/Onc Follow Up Note - OP Signed Patient: Hailee Trivedi MR#: [id number] : 1940 Acct:[id number] Age/Sex: 78 / F Type: REG RCR Copies to: Curt Clark MD~ Subjective Date/Time of Service: Date of Service: 07/12/2018 Time of Service: 08:33 Chief Complaint: Follow up appt treatment today - Diagnosis DIAGNOSIS: 1. 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 [...] DM-II, CKD-3. SOCIAL HISTORY: Lives with in [place]. HPI: Mrs. Trivedi is seen as scheduled. [...] 6 mg and cyclophosphamide 300 mg IV ndppki7808/15/2015, developed grade 2 anemia, fatigue and grade [...] potassium 4.2, creatinine 2.55, calcium 8.7 Free Spiro LC, Quant 14.0 mg/L (3.3-19.4) 06/28/18 10:45 Free Lambda LC, Quant 9.7 mg/L (5.7-26.3) 06/28/18 10:45 Free Spiro/Lambda Ratio 1.44 (0.26-1.65) 06/28/18 10:45 Total Bilirubin [...] for coordination of care (as documented) and hien-zi-bhfy counseling of patient and/or family. 25 - 35 minutes Dictated By: Margarito Buenrostro MD DD/ 0833 Signed By: <Electronically signed by Margarito Buenrostro MD> 07/12/18 0909 [facility] Work Phone: 1([phone] Progress note Author Margarito Buenrostro [facility] May 18, 2018 8:51am Note Date/Time May 18, 2018 8:44a m [facility] [place] [address] Hem/Onc Follow Up Note - OP Signed Patient: Hailee Trivedi MR#: [id number] : 1940 Acct:[id number] Age/Sex: 78 / F Type: REG RCR Copies to: Curt Clark MD~ Subjective Date/Time of Service: Date of Service: 05/18/2018 Time of Service: 08:42 Chief Complaint: weak today - Diagnosis DIAGNOSIS: 1. 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 [...] DM-II, CKD-3. SOCIAL HISTORY: Lives with in [place]. HPI: Mrs. Trivedi is seen as scheduled. [...] 6 mg and cyclophosphamide 300 mg IV rvlcrs6608/15/2015, developed grade 2 anemia, fatigue and grade [...] 7: 05/09/18 13:45 05/09/18 13:45 Labs: Free Spiro LC, Quant 15.0 mg/L (3.3-19.4) 05/09/18 13:45 Free Lambda LC, Quant 10.8 mg/L (5.7-26.3) 05/09/18 13:45 Free Spiro/Lambda Ratio 1.39 (0.26-1.65) 05/09/18 13:45 HbA1C 7.7 [...] for coordination of care (as documented) and xhgh-ns-cmik counseling of patient and/or family. Greater than 35 minutes Dictated By: Margarito Buenrostro MD DD/ 0842 Signed By: <Electronically signed by Margarito Buenrostro MD> 05/18/18 0851 [facility] Work Phone: [phone] Progress note Author Margarito Buenrostro [facility] April 19, 2018 1:08pm Note Date/Time April 19, 2018 8:33a m [facility] [place] [address] Hem/Onc Follow Up Note - OP Signed Patient: Hailee Trivedi MR#: [id number] : 1940 Acct:[id number] Age/Sex: 77 / F Type: REG RCR Copies to: Curt Clark MD~ Subjective Date/Time of Service: Date of Service: 04/19/2018 Time of Service: 08:32 Chief Complaint: Follow up appt - Diagnosis DIAGNOSIS: 1. 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 [...] DM-II, CKD-3. SOCIAL HISTORY: Lives with in [place]. HPI: Mrs. Trivedi is seen as scheduled. [...] 6 mg and cyclophosphamide 300 mg IV iuhvqk4208/15/2015, developed grade 2 anemia, fatigue and grade [...] for coordination of care (as documented) and drfk-yp-azim counseling of patient and/or family. 25 - 35 minutes Dictated By: Margarito Buenrostro MD DD/ 0832 Signed By: <Electronically signed by Margarito Buenrostro MD> 04/19/18 8414 [facility] Work Phone: 1([phone] 212-948505-02-2018 Progress note Author Margarito Buenrostro [facility] March 15, 2018 8:43am Note Date/Time March 15, 2018 8:38am [facility] [address] [address] Hem/Onc Follow Up Note - OP Signed Patient: Hailee Trivedi MR#: [id number] : 1940 Acct:[id number] Age/Sex: 77 / F Type: REG RCR Copies to: Curt Clark MD, Patrick MD~ Subjective Date/Time of Service: Date of Service: 03/15/2018 Time of Service: 08:37 Chief Complaint: Follow up appt - Diagnosis DIAGNOSIS: 1. 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 [...] DM-II, CKD-3. SOCIAL HISTORY: Lives with in [place]. HPI: Mrs. Trivedi is seen as scheduled. She reports had lithotripsy, then she developed pain involving bilateral wrist, elbows, and shoulder, primarily in themuscle. She went to [place] [facility], took x-rays, no acute process was [...] 6 mg and cyclophosphamide 300 mg IV fdlnhq8208/15/2015, developed grade 2 anemia, fatigue and grade [...] Albumin 3.8 gm/dL (3.2-5.5) 03/08/18 11:50 Free Spiro LC, Quant 18.6 mg/L (3.3-19.4) 03/08/18 11:50 Free Lambda LC, Quant 12.5 mg/L (5.7-26.3) 03/08/18 11:50 Free Spiro/Lambda Ratio 1.49 (0.26-1.65) 03/08/18 11:50 Assessment and [...] Daratumumab to next week, orders placed. Continue Zbrseuada837am bid for Herpes Zoster prophylaxis. See in [...] for coordination of care (as documented) and cauj-jj-nxyi counseling of patient and/or family. 25 - 35 minutes Dictated By: Maragrito Buenrostro MD DD/ Signed By: <Electronically signed by Margarito Buenrostro MD> 03/15/18 0843 [facility] Work Phone: [phone]) [phone] Progress note Author Margarito Buenrostro [facility] January 18, 2018 10:51am Note Date/Time January 18, 2018 10:4 4am [facility] [place] [address] Hem/Onc Follow Up Note - OP Signed Patient: Hailee Trivedi MR#: [id number] : 1940 Acct:[id number] Age/Sex: 77 / F Type: REG RCR Copies to: Curt Clark MD~ Subjective Date/Time of Service: Date of Service: 01/18/2018 Time of Service: 10:42 Chief Complaint: Follow up appt - Diagnosis DIAGNOSIS: 1. 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 [...] DM-II, CKD-3. SOCIAL HISTORY: Lives with in [place]. HPI: Mrs. Trivedi is seen as scheduled. She reports double vision has improved after a triple to [place]. Her hearing is improving too. Fatigued as [...] 6 mg and cyclophosphamide 300 mg IV tjswqv8308/15/2015, developed grade 2 anemia, fatigue and grade [...] 7: 01/10/18 10:13 01/10/18 10:13 Labs: Free Spiro LC, Quant 14.2 mg/L (3.3-19.4) 01/10/18 10:13 Free Lambda LC, Quant 11.4 mg/L (5.7-26.3) 01/10/18 10:13 Free Spiro/Lambda Ratio 1.25 (0.26-1.65) 01/10/18 10:13 Assessment and [...] for coordination of care (as documented) and pkyg-xu-bsmy counseling of patient and/or family. 25 - 35 minutes Dictated By: Margarito Buenrostro MD DD/ 1042 Signed By: <Electronically signed by Margarito Buenrostro MD> 01/18/18 1051 [facility] Work Phone: [phone] Progress note Author Margarito Buenrostro [facility] November 23, 2017 10:25am Note Date/Time November 23, 2017 1 0:19am [facility] [place] [address] Hem/Onc Follow Up Note - OP Signed Patient: Hailee Trivedi MR#: [id number] : 1940 Acct:[id number] Age/Sex: 77 / F Type: REG RCR Copies to: Curt Clark MD~ Subjective Date/Time of Service: Date of Service: 11/23/2017 Time of Service: 10:18 Chief Complaint: Follow up appt - Diagnosis DIAGNOSIS: 1. 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 [...] 6 mg and cyclophosphamide 300 mg IV vmqsxv6508/15/2015, developed grade 2 anemia, fatigue and grade [...] 7: 11/16/17 08:35 11/16/17 08:35 Labs: Free Spiro LC, Quant 17.9 mg/L (3.3-19.4) 11/16/17 08:35 Free Lambda LC, Quant 10.5 mg/L (5.7-26.3) 11/16/17 08:35 Free Spiro/Lambda Ratio 1.70 (0.26-1.65) H 11/16/17 08:35 Assessment [...] to resume Daratumumab. -She will go to [place] in December, would like to resume therapy [...] for coordination of care (as documented) and ujcr-dx-pigf counseling of patient and/or family. 25 - 35 minutes Dictated By: Margarito Buenrostro MD DD/ 1018 Signed By: <Electronically signed by Margarito Buenrostro MD> 11/23/17 1025 [facility] Work Phone: 1([phone]) 143-584812-06-2017 Progress note Author Margairto Buenrostro [facility] October 19, 2017 9:19am Note Date/Time October 19, 2017 8 :42am [facility] [place] [id number] Hem/Onc Follow Up Note - OP Signed Patient: Hailee Trivedi MR#: [id number] : 1940 Acct:[id number] Age/Sex: 77 / F Type: REG RCR Copies to: Curt Clark MD, Jeffrey DO~ Subjective Date/Time of Service: Date of Service: 10/19/2017 Time of Service: 08:42 Chief Complaint: Follow up appt - Diagnosis DIAGNOSIS: 1. 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 [...] 6 mg and cyclophosphamide 300 mg IV eoozry4808/15/2015, developed grade 2 anemia, fatigue and grade [...] 7: 10/14/17 13:43 10/14/17 13:43 Labs: Free Spiro LC, Quant 15.6 mg/L (3.3-19.4) 10/14/17 13:43 Free Lambda LC, Quant 9.4 mg/L (5.7-26.3) 10/14/17 13:43 Free Spiro/Lambda Ratio 1.66 (0.26-1.65) H 10/14/17 13:43 Assessment [...] for coordination of care (as documented) and ymsd-pm-lseo counseling of patient and/or family. less than 15 minutes Dictated By: Margarito Buenrostro MD DD/ Signed By: <Electronically signed by Margarito Buenrostro MD> 10/19/17 0919 [facility] Work Phone: [phone]) 412-518011-08-2017 Progress note Author Margarito Buenrostro [facility] September 21, 2017 8:54am Note Date/Time September 21, 2017 8 :50am [facility] [place] [address] Hem/Onc Follow Up Note - OP Signed Patient: Hailee Trivedi MR#: [id number] : 1940 Acct:[id number] Age/Sex: 77 / F Type: REG RCR Copies to: Curt Clark MD, Jeffrey DO~ Subjective Date/Time of Service: Date of Service: 09/21/2017 Time of Service: 08:48 Chief Complaint: Follow up appt - Diagnosis DIAGNOSIS: 1. 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 [...] 6 mg and cyclophosphamide 300 mg IV ffjsil1108/15/2015, developed grade 2 anemia, fatigue and grade [...] 7: 09/15/17 10:45 09/15/17 10:45 Labs: Free Spiro LC, Quant 14.4 mg/L (3.3-19.4) 09/15/17 10:45 Free Lambda LC, Quant 9.3 mg/L (5.7-26.3) 09/15/17 10:45 Free Spiro/Lambda Ratio 1.55 (0.26-1.65) 09/15/17 10:45 Assessment and [...] for coordination of care (as documented) and klgn-iq-gulu counseling of patient and/or family. 25 - 35 minutes Dictated By: Margarito Buenrostro MD DD/ Signed By: <Electronically signed by Margarito Buenrostro MD> 09/21/17 0854 [facility] Work Phone: [phone] 406-664509-13-2017 Progress note Author Margarito Buenrostro [facility] July 27, 2017 8:53am Note Date/Time July 27, 2017 8:46am [facility] [place] [address] Hem/Onc Follow Up Note - OP Signed Patient: Hailee Trivedi MR#: [id number] : 1940 Acct:[id number] Age/Sex: 77 / F Type: REG RCR cc: Curt Clark MD, Jeffrey DO Qadir, Abdul MD~ Subjective Date/Time of Service: Date of Service: 07/27/2017 Time of Service: 08:44 Chief Complaint: Follow up appt - Diagnosis DIAGNOSIS: 1. 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 [...] 6 mg and cyclophosphamide 300 mg IV [id number]/15/2015, developed grade 2 anemia, fatigue and grade [...] Chem 7: 07/21/17 08:50 07/21/17 08:50 Labs: Spiro and lambda light chain levels low, and [...] for coordination of care (as documented) and mccl-fv-riyc counseling of patient and/or family. 25 - 35 minutes Dictated By: Margarito Buenrostro MD DD/ 3 Signed By: <Electronically signed by Margarito Buenrostro MD> 07/27/1753 [facility] Work Phone: Evaluation + Plan note Future Appointments Appointment Date:01/10/2023 10:45:00 AM Scheduled Provider:Tyree PARK MD Location:[facility] Appointment Type:URO Office Visit [facility] evalpfhvom + Plan note Future Appointments Appointment Date:01/09/2024 08:45:00 AM Scheduled Provider:Tyree PARK MD Location:[facility] Appointment Type:URO Office Visit Diagnostic Tests Pending * Urine Cytology ([facility]) 01/10/23 [facility] evaluation noteNo [employer] Other Evaluation note* Diagnosis Onset Date Resolution [...] chronic Steroid-induced hyperglycemia chronic Unsteady gait resolved [facility] Work Phone: Evaluation note* Diagnosis Persistent atrial fibrillation with RVR (CMS/HCC)- Primary Aortic valve regurgitation, nonrheumatic Ascending aorta dilation (CMS/HCC) Thoracic aneurysm without mention of rupture Essential hypertension Unspecified essential hypertension Pulmonary hypertension (CMS/HCC) Other chronic pulmonary heart diseases Stage 3a chronic kidney disease (CMS/HCC) documented in this encounter [facility] Work Phone: Evaluation note* Diagnosis Aortic valve regurgitation, nonrheumatic Ascending aorta dilation (CMS/HCC) Thoracic aneurysm without mention of rupture Pulmonary hypertension (CMS/HCC) Other chronic pulmonary heart diseases documented in this encounter [facility] Work Phone: Evaluation note* Diagnosis Aortic valve regurgitation, nonrheumatic Ascending aorta dilation (CMS/HCC) Thoracic aneurysm without mention of rupture Pulmonary hypertension (CMS/HCC) Other chronic pulmonary heart diseases documented in this encounter [facility] Work Phone: Evaluation note* Diagnosis Onset [...] 4, GFR 15-29 ml/min acute Hyperlipidemia acute [id number] acute Metabolic acidemia acute Multiple myeloma acute Secondary hyperparathyroidism of renal origin acute 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 Work Phone: Evaluation note* Diagnosis Onset Date Resolution Status CKD (chronic kidney disease) stage 4, GFR 15-29 ml/min acute Hyperlipidemia acute [id number] acute Metabolic acidemia acute Multiple myeloma acute [...] myeloma in remission chronic Unsteady gait resolved 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 Work Phone: Evaluation note* Diagnosis Essential [...] Never smoked tobacco documented in this encounter [facility] Work Phone: Evaluation note* Diagnosis Onset [...] myeloma in remission chronic Unsteady gait resolved 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 Work Phone: Evaluation note* Diagnosis Onset Date Resolution Status CKD (chronic kidney disease) stage 4, GFR 15-29 ml/min acute Depression acute HTN (hypertension) chronic Multiple myeloma in remission chronic CKD (chronic kidney disease) stage 4, GFR 15-29 ml/min acute Hyperkalemia acute Hyperlipidemia acute [id number] acute Metabolic acidemia acute Multiple myeloma acute [...] myeloma in remission chronic Unsteady gait resolved [facility] Work Phone: Evaluation note* Diagnosis Onset Date Resolution Status CKD (chronic kidney disease) stage 4, GFR 15-29 ml/min acute Hyperkalemia acute Hyperlipidemia acute [id number] acute Metabolic acidemia acute Multiple myeloma acute [...] acute Atrial fibrillation chronic HTN (hypertension) chronic [facility] Work Phone: Evaluation note* Diagnosis Onset Date Resolution Status CKD (chronic kidney disease) stage 4, GFR 15-29 ml/min acute Hyperkalemia acute Hyperlipidemia acute [id number] acute Metabolic acidemia acute Multiple myeloma acute [...] (hypertension) chronic Multiple myeloma in remission chronic [facility] Work Phone: History general Narrative - Reported* [...] History SEE ABOVE SURGERY Hospitalization History [facility]-DEHYDRATION/R[facility] Other History general Narrative - Reported* Type [...] Hospitalization History [facility] Hospitalization History COVID 10/2021 [facility] Other Hisrkig general Narrative - Reported* Type Description Date [...] Hospitalization History SEE ABOVE SURGERY Hospitalization History [facility] Hospitalization History COVID 10/2021 [facility] Other History of Present illness Narrative* Patient [...] recurrence. She did have noninvasive assessment at [facility], which was negative. Couple of years [...] of change in cardiac status or symptoms [facility] 250 DO Work Phone: History of Present [...] recurrence. She did have noninvasive assessment at [facility], which was negative. Couple of years [...] of change in cardiac status or symptoms [facility] 250 DO Work Phone: Hospital course Narrative No data available for this section [facility] progress note No data available for this section [facility] progress note Author Misti Connolly [facility] January 11, 2023 11:19am Note Date/Time January 11, 2023 10:42am [facility] [place] [id number] Hem/Onc Follow Up Note - OP Signed Patient: Hailee Trivedi MR#: [id number] : 1940 Acct:[id number] Age/Sex: 82 / F Type: REG RCR [...] neurologist. Head CT done March 2022 at [facility] without new/acute findings. 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 [...] been trying to transfer her care to [place] [facility] but they are not up [...] x 1 week, sees neurology (followed at [facility]) who have ruled out stroke, CT [...] for coordination of care (as documented) and hmgw-yq-hliu counseling of patient and/or family. [facility] - Medical History Medical History: Medical History [...] 01/19/22 09:00 KB (Rec: 01/19/22 09:01 KB [id number]) Distress Screening Distress screening follow up: Will follow with patient for any needs at next visit. Anxious about making next appointment time. - Lab Results Diagram of Most Recent CBC and CMP 01/04/23 14:45 02/21/23 14:45 Labs - Last 7 Days 01/04/23 14:45: Free Spiro LC, Quant 26.9 H, Free Lambda LC, Quant 12.0, Free Spiro/Lambda Ratio 2.24 H 01/04/23 14:45: PHA Creatinine [...] % (Auto) 54.8, Lymph % (Auto) 34.1, [place] % (Auto) 8.0, Eos % (Auto) 2.3, Baso % (Auto) 0.8, Nucleat RBC Rel Count 0.0, Neut # (Auto) 4.9, Lymph # (Auto) 3.0, [place] # (Auto) 0.7, Eos # (Auto) 0.2, [...] By: <Electronically signed by RAMAKRISHNA Connolly> 01/11/23 6664 [facility] Work Phone: Progress note Author Misti Connolly [facility] January 31, 2024 1:03pm Note Date/Time January 27, 2024 2:5 6pm [facility] [place] [address] Cancer Center Note Signed Patient: Hailee Trivedi MR#: [id number] : 1940 Acct:[id number] Age/Sex: 83 / F Type: DEP AMB [...] well. Within one month of starting irma [id number] she had 95% reduction in K light [...] neurologist. Head CT done March 2022 at [facility] without new/acute findings. 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 [...] for multiple myeloma and go over labs [facility] Medical History Medical History (Updated 01/04/24 @ [...] <Electronically signed by RAMAKRISHNA Connolly> 01/31/[address] [facility] Work Phone: Reason for referral (narrative)* Consultation (Routine) - Authorized Specialty Diagnoses / Procedures Referred By Contac t Referred To Contact Cardiology Diagnoses Persistent atrial fibrillation with RVR (Multi) Procedures Follow Up In Cardiology Elicia Rhodes MD [address] [place] [address], [address] [address] Elicia Rhodes MD [address] [place] [address], [address] [address] Referral ID Status Reason Start Date Expiration Date V isits Requested Visits Authorized [id number] Authorized 04/17/2024 04/17/2025 1 1 [facility] Work Phone: Summary Purpose Family History No [...] disease) stage 4, GFR 15-29 ml/min Hyperlipidemia [id number] Metabolic acidemia Multiple myeloma 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 Reason for Visit CKD (chronic kidney disease) stage 4, GFR 15-29 ml/min Hyperlipidemia [id number] Metabolic acidemia Multiple myeloma Secondary hyperparathyroidism of [...] stage 4, GFR 15-29 ml/min Hyperkalemia Hyperlipidemia [id number] Metabolic acidemia Multiple myeloma 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 6 Month Follow Up Reason for Visit CKD (chronic kidney disease) stage 4, GFR 15-29 ml/min Depression HTN (hypertension) Multiple myeloma in remission CKD (chronic kidney disease) stage 4, GFR 15-29 ml/min Hyperkalemia Hyperlipidemia [id number] Metabolic acidemia Multiple myeloma Secondary hyperparathyroidism of [...] stage 4, GFR 15-29 ml/min Hyperkalemia Hyperlipidemia [id number] Metabolic acidemia Multiple myeloma Secondary hyperparathyroidism of [...] stage 4, GFR 15-29 ml/min Hyperkalemia Hyperlipidemia [id number] Metabolic acidemia Multiple myeloma Secondary hyperparathyroidism of [...] stage 4, GFR 15-29 ml/min Hyperkalemia Hyperlipidemia [id number] Metabolic acidemia Multiple myeloma Secondary hyperparathyroidism of [...] hypertension (CMS/HCC) Procedures Transthoracic Echo (TTE) Complete WV ECHO TRANSTHORC R-T 2D W/WO M-MODE REC F-UP/LMTD WV DOP ECHOCARD COLOR FLOW VELOCITY MAPPING WV DOP ECHOCARD PULSE WAVE W/SPECTRAL F-UP/LMTD STD Elicia Rhodes MD [address] [place] [address], [address] [address] Referral ID Status Reason Start Date Expiration Date Visits Requested Visits Authorized [id number] Pending Review Perform Procedure 10/03/2024 1 1 Specialty Diagnoses / Procedures Referred By Contac t Referred To Contact Diagnoses Persistent atrial fibrillation with RVR (CMS/HCC) Procedures ECG 12 Lead Elicia Rhodes MD [address] [facility] 2, [place] [place] [id number] Referral ID Status Reason Start Date Expiration Date V isits Requested Visits Authorized [id number] Pending Review 10/04/2023 10/03/2024 1 1 Specialty Diagnoses / Procedures Referred By Contac t Referred To Contact Cardiology Diagnoses Persistent atrial fibrillation with RVR (CMS/HCC) Aortic valve regurgitation, nonrheumatic Ascending aorta dilation (CMS/HCC) Procedures Follow Up In Cardiology Elicia Rhodes MD [address] [facility] 2, [address] [place] [address] Elicia Rhodes MD [address] [facility] 2, [address] [place] [phone] Referral ID Status Reason Start Date Expiration Date V isits Requested Visits Authorized [id number] Authorized 10/04/2023 10/03/2024 1 1 Additional Source Comments INFORMATION SOURCE (unrecogn ized section and content) DATE CREATED AUTHOR 10/19/2019 [facility] DATE CREATED AUTHOR AUTHOR'S ORGANIZ ATION 03/24/2023 [facility] pital DATE CREATED AUTHOR AUTHOR'S ORGANIZ ATION 03/26/2023 [facility] ical Center DATE CREATED AUTHOR AUTHOR'S ORGANIZ ATION 03/26/2023 [employer] DATE CREATED AUTHOR AUTHOR'S ORGANIZ ATION 01/14/2024 [facility] ical Center DATE CREATED AUTHOR AUTHOR'S ORGANIZ ATION 03/15/2024 [facility] EPIC DATE CREATED AUTHOR AUTHOR'S ORGANIZ ATION 07/12/2024 [facility] DATE CREATED AUTHOR AUTHOR'S ORGANIZ ATION 07/29/2024 [facility] DATE CREATED AUTHOR AUTHOR'S ORGANIZ ATION 10/08/2024 [facility] REASON FOR VISIT (unrecogniz ed section and content) Reason Comments Follow-up 6m with ekg Specialty Diagnoses / Procedures Referred By Contac t Referred To Contact Diagnoses Persistent atrial fibrillation with RVR (CMS/HCC) Procedures ECG 12 Lead Elicia Rhodes MD [address] [place] [address] 2, [place] [address] [place] [phone] Referral ID Status Reason Start Date Expiration Date V isits Requested Visits Authorized [id number] Pending Review 10/04/2023 10/03/2024 1 1 Specialty Diagnoses / Procedures Referred By Contac t Referred To Contact Cardiology Diagnoses Aortic valve regurgitation, nonrheumatic Ascending aorta dilation (CMS/HCC) Pulmonary hypertension (CMS/HCC) Procedures Transthoracic Echo (TTE) Complete WV ECHO TRANSTHORC R-T 2D W/WO M-MODE REC F-UP/LMTD WV DOP ECHOCARD COLOR FLOW VELOCITY MAPPING WV DOP ECHOCARD PULSE WAVE W/SPECTRAL F-UP/LMTD STD Elicia Rhodes MD [address] [facility] 2, [place] [address] [place] [address] Referral ID Status Reason Start Date Expiration Date Visits Requested Visits Authorized [id number] Pending Review Perform Procedure 3 10/03/2024 1 1 Reason Comments Follow-up 6 months Specialty Diagnoses / Procedures Referred By Contac t Referred To Contact Cardiology Diagnoses Persistent atrial fibrillation with RVR (Multi) Aortic valve regurgitation, nonrheumatic Ascending aorta dilation (CMS-HCC) Procedures Follow Up In Cardiology Elicia Rhodes MD [address] [facility] 2, [address] [address] Elicia Rhodes MD [address] [place] [address] 2, [place] [address] [place] [id number] Referral ID Status Reason Start Date Expiration Date V isits Requested Visits Authorized [id number] Authorized 10/04/2023 10/03/2024 1 1 Care Teams [...] Claire Choi II, DO Attending Provider Active [employer] Relationship Specialty Start Date End Date Curt Clark MD PCP - General 12/10/14 [employer] Relationship Specialty Start Date End Date Curt Clark MD [address] [place] [address] [place] [address] PCP - General Family Medicine 10/22/23 [employer] Relationship Specialty Start Date End Date Curt Clark MD [address] [place] [address] [place] [address] PCP - General Family Medicine 10/22/23 Team [...] Status: Active Member Role Status Dates Curt Clrak MD Primary Care Provide r, Attending Provider [...] April 12, 2024 End: April 12, 2024 Local Delivery [employer] Relationship Specialty Start Date End Date Curt [...] August 20, 2024 End: August 20, 2024 Local Delivery [employer] Relationship Specialty Start Date End Date Curt Clark MD [address] [place] [id number] PCP - [facility] 06/29/23 Team Status: Active Member [...] End: September 19, 2024 Kristan Pretty , [employer] Other Provider Active St art: September 18, 2024 End: September 19, 2024 [place] L Belcik Jr, DO Other Provider Active [...] September 18, 2024 Cristiano Diaz MD Attending [facility], Other Provider Active Start: September 18, 2024 Sherron Li MD Other Provider Active Start: No 2023 Pj Montes MD Other Provider Active Start: N 2023 Kristan Pretty , [employer] Other Provider Active St art: September 18, 2024 [place] L Belcik Jr, DO Other Provider Active [...] BE BASED ON THE PRIMARY CLINICAL RECORDS. [employer] provides no warranty or guarantee of the accuracy or completeness of information in this document.
[2024-10-10] MEDS: LACTATED RINGER'S SOLUTION 1,000 ML 125 ML IV (17:51)
[2024-10-10 19:06] LABS: Hematocrit 29.2 % (36.0-48.0); Hemoglobin 9.3 g/dL (12.0-16.0)
[2024-10-10] MEDS: CHOLECALCIFEROL (VITAMIN D3) 25 MCG/1,000 UNITS TABLET PO (21:31)
[2024-10-10] MEDS: ATORVASTATIN CALCIUM 40 MG TABLET PO (21:31)
[2024-10-10] MEDS: CARVEDILOL 12.5 MG TABLET PO (21:31)
[2024-10-10 21:32] LABS: Glucometer 132 mg/dL (74-106)
[2024-10-11] VITALS (16 sets, daily range): BP systolic 116–125; BP diastolic 63–71; PULSE 85–118; TEMP 36.6–36.8; O2SAT 93–96
[2024-10-11] MEDS: LACTATED RINGER'S SOLUTION 1,000 ML 125 ML IV ×2 (01:56→09:40)
[2024-10-11] MEDS: ONDANSETRON PF 4 MG/2 ML VIAL IV (02:25)
[2024-10-11 06:19] LABS: Basophils Percent Auto 0.2 % (0.2-2.0); Eosinophils Percent Auto 0.3 % (0.9-7.0); Hematocrit 24.9 % (36.0-48.0); Hemoglobin 7.9 g/dL (12.0-16.0); Immature Granulocytes Abs Auto 0.02 10^3/uL (0.00-0.03); Immature Granulocytes Pct Auto 0.2 % (0.0-0.5); Lymphocytes Absolute Auto 4.2 10^3/uL (1.2-3.8); Lymphocytes Percent Auto 47.9 % (20.5-60.0); Mean Corpuscular HGB Conc 31.7 g/dL (29.9-35.2); Mean Corpuscular Volume 100.8 fL (81.0-99.0); Mean Platelet Volume 12.3 fL (9.5-13.5); Monocytes Absolute Auto 0.8 10^3/uL (0.3-0.8); Monocytes Percent Auto 9.3 % (1.7-12.0); Neutrophils Absolute Auto 3.7 10^3/uL (1.4-6.5); Neutrophils Percent Auto 42.1 % (43.0-75.0); Platelet Count 199 10^3/uL (150-450); Red Blood Count 2.47 10^6/uL (4.20-5.40); Red Cell Distribution Width 13.1 % (11.0-15.0); White Blood Count 8.7 10^3/uL (4.0-11.0)
[2024-10-11 06:28] LABS: Alanine Aminotransferase 12 U/L (14-59); Albumin Globulin Ratio 0.8; Albumin Level 2.1 g/dL (3.4-5.0); Alkaline Phosphatase 69 U/L (46-116); Anion Gap 16.7; Aspartate Amino Transferase 10 U/L (15-37); BUN Creatinine Ratio 30.1; Bilirubin Total 0.3 mg/dL (0.2-1.0); Calcium 8.1 mg/dL (8.5-10.1); Carbon Dioxide 19.9 mmol/L (21.0-32.0); Chloride 111 mmol/L (98-107); Estimated GFR (African America 19 (>=60 mL/min/1.73m^2); Estimated GFR (Non-African Ame 16 (>=60 mL/min/1.73m^2); Globulin 2.7 g/dL; Glucose 162 mg/dL (74-106); Potassium 4.6 mmol/L (3.5-5.1); Sodium 143 mmol/L (136-145); Total Protein 4.8 g/dL (6.4-8.2)
[2024-10-11] MEDS: CARVEDILOL 12.5 MG TABLET PO ×2 (08:38→21:18)
[2024-10-11] MEDS: PANTOPRAZOLE SODIUM 40 MG VIAL IV ×2 (08:38→21:18)
[2024-10-11 11:14] LABS: Glucometer 206 mg/dL (74-106)
[2024-10-11] MEDS: INSULIN ASPART 300 UNIT/3 ML PEN SUBQ (11:17)
--- NOTE | 2024-10-11 12:08 | P.HP_ITS ---
HPI H&P: HPI History of Present Illness Chief complaint: HEAD INJURY, WEAKNESS GI BLEED Narrative: 84-year-old female with history of atrial fibrillation who is currently on Xarelto for stroke prophylaxis was in usual state of health when she woke up early in the morning and felt very weak/tired. She typically uses a walker to ambulate at home but yesterday she could barely get out of her bed and use the restroom. She noticed she had large amount of black-colored stools in the toil et. Afterwards she was unable to get up and called for help but her is hard of hearing so he could not hear her from the restroom. After waiting for a while, she tried to get her her strength and return to her bedroom and felt too weak to walk and fell on the floor. After falling on the floor, she had few episodes of vomiting with bright red blood and afterwards she passed out briefly. She was brought into ED by EMS. Upon arrival her blood pressure was slightly low that improved with IV hydration. Workup in ER revealed that her hemoglobin was 10.1. Her baseline hemoglobin is 12 or above. Her stool was positive for occult blood. She was admitted for observation for possible upper GI bleed to monitor her hemoglobin and hemodynamics given that she was on anticoagulation. We did serial checks of her hemoglobin and with IV hydration her hemoglobin earlier this morning was only 7.9. While she did not have another episode of hematemesis, she did have another episode of melanotic stool earlier this morning. Patient reports that she is feeling nauseous and has intermittent abdominal discomfort that resolves on its own after a few minutes. The symptoms started since yesterday and prior to that she was in her usual state of health. She is still feeling worn out and very weak. She had prior EGD and colonoscopy over 10 years ago and could not remember when it was. She has no prior history of GI bleeding. She lives at home with her and uses a walker to ambulate. Opioid HPI Opioid Management Most Recent Pain and Opioid Data: Last Pain Scale 0 06/20/23 04:27 06/20/23 Last Pain Assessment 10/11/24 10:53 Last ORT Total Score 0 10/10/24 17:15 10/10/24 Last ORT Risk Category Low Risk 10/10/24 17:15 10/10/24 Review of Systems ROS Status of ROS 10 or more systems reviewed and unremark able except as noted in history and below [facility] Medical History (Updated 10/11/24 @ 12:17 by Shaikh Kim MD) HLD (hyperlipidemia) ?E78.5 - Hyperlipidemia, unspecified (ICD-10) H/O: CVA (cerebrovascular accident) ?Z86.73 - Personal history of transient ischemic attack (TIA), and cerebral infarction without residual deficits (ICD-10) Type 2 diabetes mellitus ?E11.9 - Type 2 diabetes mellitus without complications (ICD-10) Cerebrovascular disease ?I67.9 - Cerebrovascular disease, unspecified (ICD-10) Paroxysmal atrial fibrillation ?I48.0 - Paroxysmal atrial fibrillation (ICD-10) CKD (chronic kidney disease) stage 4, GFR 15-29 ml/min ?N18.4 - Chronic kidney disease, stage 4 (severe) (ICD-10) Type 2 diabetes mellitus with hyperglycemia ?E11.65 - Type 2 diabetes mellitus with hyperglycemia (ICD-10) Hypertension ?I10 - Essential (primary) hypertension (ICD-10) Cataract ?H26.9 - Unspecified cataract (ICD-10) Multiple myeloma ?C90.00 - Multiple myeloma not having achieved remission (ICD-10) Stroke ?I63.9 - Cerebral infarction, unspecified (ICD-10) Osteoarthritis of left knee ?M17.12 - Unilateral primary osteoarthritis, left knee (ICD-10) Hypertension ?I10 - Essential (primary) hypertension (ICD-10) Surgical History (Updated 04/19/23 @ 11:32 by Letty Overton) Hx of cholecystectomy ?Z90.49 - Acquired absence of other specified parts of digestive tract (ICD-10) History of hysterectomy ?Z90.710 - Acquired absence of both cervix and uterus (ICD-10) Family History (Updated 04/19/23 @ 11:35 by Letty Overton) Mother Family history of CHF (congestive heart failure) Family history of diabetes mellitus Family history of stroke Sister Family history of CHF (congestive heart failure) Family history of diabetes mellitus Family history of hypertension Grandmother Family history of cancer Family history of diabetes mellitus Brother No problems noted. Father No problems noted. Social History (Updated 04/19/23 @ 11:38 by Letty Overton) Within the past year, how often did you have a drink containing alcohol: never Score interpretation: A score less than 3 is consistent with normal alcohol consumption. 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 Highest level of school completed/degree received: some college, no degree Are you now , , , , never or living with a partner: Little interest or pleasure in doing things: not at all Feeling down, depressed, or hopeless: not at all Feel stressed/tense/nervous/anxious/difficulty sleeping: not at all Do you think of yourself as: straight/heterosexual Gender Identity: female Meds Home Medications and Allergies Home Medications ?Medication ?Instructions ?Recorded ?Confirmed ?Type acyclovir 400 mg tablet 400 mg PO Q12H 04/19/23 10/10/24 History aspirin 81 mg capsule 81 mg PO DAILY 04/19/23 10/10/24 History atorvastatin 40 mg tablet 40 mg PO .once a day 04/19/23 10/10/24 History carvedilol 12.5 mg tablet 12.5 mg PO Q12H 04/19/23 10/10/24 History rivaroxaban 15 mg tablet (Xarelto) 15 mg PO Q24H 04/19/23 10/10/24 History cholecalciferol (vitamin D3) 25 25 mcg PO BEDTIME 06/19/23 10/10/24 History mcg (1,000 unit) capsule insulin NPH isoph U-100 human 100 10 unit subcut BID 06/19/23 10/10/24 History unit/mL (3 mL) subcutaneous pen (Humulin N NPH U-100 Insulin KwikPen) omega 5-cfh-ycp-fish oil 300 1 cap PO BID 06/19/23 10/10/24 History mg-1,000 mg capsule (Fish Oil) amlodipine 5 mg tablet 5 mg PO DAILY 10/10/24 10/10/24 History magnesium chloride 71.5 mg 71.5 mg PO DAILY 10/10/24 10/10/24 History (magnesium chloride) tablet,delayed release (Slow-Mag) Allergies Allergy/AdvReac Type Severity Reaction Status Date / Time lenalidomide (From Revlimid) Allergy Rash Verified 09/14/24 14:11 pregabalin (From Lyrica) Allergy Rash Verified 09/14/24 14:11 oxybutynin AdvReac Mild Rash Verified 09/14/24 14:11 Exam Constitutional Vital Signs, click to edit/add: Last Vital Signs Temp 97.9 F 10/11/24 05:28 Pulse 85 10/11/24 11:42 Resp 18 10/11/24 05:28 BP 125/63 10/11/24 05:28 Pulse Ox 94 L 10/11/24 11:06 O2 Del Method Room Air 10/11/24 11:06 Documenting provider has reviewed patient's vital signs: yes Common normals: no apparent distress and oriented x3 General appearance: cooperative, ill appearing and frail appearing [facility] Common normals: normocephalic and head/scalp atraumatic Head and scalp: normocephalic and atraumatic Respiratory Common normals: normal respiratory effort and clear to auscultation bilaterally Effort & inspection: able to speak in complete sentences Auscultation: clear to auscultation bilaterally Cardio Common normals: regular rate, S1 normal heart sound and S2 normal heart sound Rate: regular rate Rhythm: abnormal rhythm Heart sounds: S1 normal and S2 normal GI Common normals: Normal to inspection, nondistended, normoactive bowel sounds present, soft to palpation and no hepatosplenomegaly Palpation: soft, tender Details: epigastric and no hepatosplenomegaly Extremity Common normals: no clubbing, cyanosis or edema Neuro Common normals: oriented x3, moves all extremities and no focal motor deficits Psych Common normals: mental status grossly normal, denies hallucinations, denies fior icidal ideation and denies suicidal ideation Results Labs Labs: Short CBC 10/10/24 10/10/24 10/11/24 Range/Units 14:18 19:00 05:24 WBC 9.0 8.7 (4.0-11.0) 10^3/uL Hgb 10.1 L 9.3 L 7.9 L (12.0-16.0) g/dL Hct 31.9 L 29.2 L 24.9 L (36.0-48.0) % Plt Count 251 199 (150-450) 10^3/uL BMP 10/10/24 10/11/24 14:18 05:24 Sodium 141 143 Potassium 5.3 H 4.6 Chloride 110 H 111 H Carbon Dioxide 19.4 L 19.9 L BUN 67.0 H 86.0 H* Creatinine 2.78 H 2.86 H Glucose 191 H 162 H Calcium 8.8 8.1 L Liver Function 10/10/24 10/11/24 Range/Units 14:18 05:24 Total Bilirubin 0.5 0.3 (0.2-1.0) mg/dL Direct Bilirubin 0.1 (0.0-0.2) mg/dL AST 10 L 10 L (15-37) U/L ALT 15 12 L (14-59) U/L Alkaline Phosphatase 87 69 (46-116) U/L Albumin 2.4 L 2.1 L (3.4-5.0) g/dL Assessment and Plan Assessment and Plan (1) Syncope and collapse: Assessment and Plan: Likely due to hypovolemia/dehydration and acute blood loss. CTH/CT neck - no acute finding. EKG -chronic Afib. (2) Hypotension due to blood loss: Assessment and Plan: Hx of HTN, BP typically above 140. Presented with SPB less than 100. Better after IV hydration. Hold amlodipine. C/w Coreg. (3) Upper gastrointestinal bleed: Assessment and Plan: Hematemesis with melena. No prior hx of GIB. Hb at baseline is 12, now down to 7.9. Stool positive for occult blood. No recent GI work up. on ASA, xarelto for hx of CVA, Afib. Started On IV protonix 40 q12. Monitor H&H closely. Had one episode of melena today. (4) Hematemesis with nausea: Assessment and Plan: Hematemesis reported by patient at home. No hematemesis since admission. Mild nausea. C/w IV zofran and IV protonix Hold ASA, xarelto. (5) Gastrointestinal hemorrhage with melena: Assessment and Plan: UGIB with hematemesis and melena. On IV protonix. Hb trending down gradually - 7.9 this morning. Recheck at 1 pm. Hold ASA, xarelto (6) Hyperkalemia: Assessment and Plan: Upon arrival, resolved with IV hydration. Monitor. (7) Paroxysmal atrial fibrillation: Assessment and Plan: Chronic Afib. On Xarelto for stroke px. CHADVASC2 score is 7, annual stroke risk is 11% Hold Xarelto for now. Will need to be either on stroke px or consider MARIAMA occlusion if ongoing increased of GI bleeding as her risk of stroke is very high with Afib. (8) CKD (chronic kidney disease) stage 4, GFR 15-29 ml/min: Assessment and Plan: Cr more or less at baseline. Out of proportion elevation in BUN likely due to GIB. (9) Hypertension: Assessment and Plan: BP was borderline low on arrival. Improved now. C/w coreg. Hold amlodipine for now. Qualifiers: Hypertension type: primary hypertension Qualified Code(s): I10 - Essential (primary) hypertension (10) Type 2 diabetes mellitus: Assessment and Plan: SSI while inpatient for now especially since she will be NPO after [place] Qualifiers: Diabetes mellitus usp insulin use: with buttermaker helper use Diabetes mellitus complication status: with kidney complications Diabetes mellitus complication detail: with chronic kidney disease Chronic kidney disease stage: stage 4 (GFR 15-29) Qualified Code(s): E11.22 - Type 2 diabetes mellitus with diabetic chronic kidney disease; N18.4 - Chronic kidney disease, stage 4 (severe); Z79.4 - [facility] (current) use of insulin (11) H/O: CVA (cerebrovascular accident): Assessment and Plan: Hold ASA, xarelto for now. C/w statin (12) HLD (hyperlipidemia): Assessment and Plan: C/w statin Qualifiers: Hyperlipidemia type: unspecified Qualified Code(s): E78.5 - Hyperlipidemia, unspecified Plan Initially admitted as observation but changed to inpatient as patient's Hemoglobin continues to downtrend with almost 4 point drop from its baseline. Moreover, she had melanotic stools earlier today. She will need close hemodynamic monitoring, serial H&H and is made NPO for possible EGD tomorrow after consultation with General Surgery.
[2024-10-11 13:20] LABS: Hematocrit 24.2 % (36.0-48.0); Hemoglobin 7.8 g/dL (12.0-16.0)
[2024-10-11 16:09] LABS: Glucometer 118 mg/dL (74-106)
[2024-10-11 18:50] LABS: Hemoglobin 7.6 g/dL (12.0-16.0)
[2024-10-11 18:52] LABS: Hematocrit 23.9 % (36.0-48.0)
[2024-10-11] MEDS: ATORVASTATIN CALCIUM 40 MG TABLET PO (21:18)
[2024-10-11] MEDS: CHOLECALCIFEROL (VITAMIN D3) 25 MCG/1,000 UNITS TABLET PO (21:18)
[2024-10-11 21:19] LABS: Glucometer 187 mg/dL (74-106)
[2024-10-12] VITALS (31 sets, daily range): BP systolic 88–147; BP diastolic 52–81; PULSE 72–115; TEMP 36.3–36.8; O2SAT 92–100
--- NOTE | 2024-10-12 00:20 | PC.NURSE ---
Patient called out to use bedside commode. After standing patient c/o dizziness and became pale. BP 88/61. Returned to bed and placed in Trendelenburg position. BP rechecked 133/81, HR 95, 93% SPO2 on ra and blood sugar 147. Patient stated she felt better and color returned to face.
[2024-10-12 00:23] LABS: Glucometer 147 mg/dL (74-106)
[2024-10-12 06:27] LABS: Basophils Percent Auto 0.3 % (0.2-2.0); Eosinophils Absolute Auto 0.1 10^3/uL (0.0-0.7); Eosinophils Percent Auto 0.9 % (0.9-7.0); Hemoglobin 7.3 g/dL (12.0-16.0); Immature Granulocytes Abs Auto 0.02 10^3/uL (0.00-0.03); Immature Granulocytes Pct Auto 0.3 % (0.0-0.5); Lymphocytes Percent Auto 38.5 % (20.5-60.0); Mean Corpuscular HGB Conc 31.6 g/dL (29.9-35.2); Mean Corpuscular Volume 101.3 fL (81.0-99.0); Mean Platelet Volume 12.1 fL (9.5-13.5); Monocytes Absolute Auto 0.6 10^3/uL (0.3-0.8); Monocytes Percent Auto 7.4 % (1.7-12.0); Neutrophils Absolute Auto 4.1 10^3/uL (1.4-6.5); Neutrophils Percent Auto 52.6 % (43.0-75.0); Platelet Count 169 10^3/uL (150-450); Red Blood Count 2.28 10^6/uL (4.20-5.40); Red Cell Distribution Width 13.2 % (11.0-15.0); White Blood Count 7.8 10^3/uL (4.0-11.0)
[2024-10-12 06:33] LABS: Hematocrit 23.1 % (36.0-48.0)
[2024-10-12 06:48] LABS: Alanine Aminotransferase 13 U/L (14-59); Albumin Globulin Ratio 0.9; Albumin Level 2.3 g/dL (3.4-5.0); Alkaline Phosphatase 66 U/L (46-116); Aspartate Amino Transferase 10 U/L (15-37); BUN Creatinine Ratio 22.3; Bilirubin Total 0.3 mg/dL (0.2-1.0); Calcium 8.1 mg/dL (8.5-10.1); Carbon Dioxide 22.7 mmol/L (21.0-32.0); Chloride 112 mmol/L (98-107); Estimated GFR (African America 18 (>=60 mL/min/1.73m^2); Estimated GFR (Non-African Ame 14 (>=60 mL/min/1.73m^2); Globulin 2.6 g/dL; Glucose 138 mg/dL (74-106); Potassium 4.7 mmol/L (3.5-5.1); Sodium 144 mmol/L (136-145); Total Protein 4.9 g/dL (6.4-8.2)
--- OUTSIDE RECORDS SUMMARY | 2024-10-12 07:10 | XMS_ITS | CCD ---
Author Organization [facility] Care Team Providers Care Cream Dumper Name Role Phone Curt Clark Unavailable Unavailable Unavailable CURT CLARK Primary Care Physician Lopez, Akin Unavailable Quita Ayon Unavailable MD Curt Clark Primary Care Provider [phone] DO Claire Choi II Attending Provider Curt Clark Unavailable MD Curt Clark Primary Care Provider DO Claire Choi II Attending Provider [phone] DR CURT CLARK Primary Care Unavailable AMBER, DR CURT Patel Consulting Unavailable CLARK, DR CURT Patel Attending Unavailable CLARK, DR CURT Patel Admitting Unavailable LOPEZ, AKIN Attending Unavailable LOPEZ, AKNI Admitting Unavailable AMBER, DR CURT Patel Primary [...] Unavailable MD Curt Clark Primary Care Provider RAMKARISHNA Connolly Attending Provider ARTEMIO GRAJEDA Attending Unavailable MD Curt Clark Primary Care Provider DO Claire Choi II Attending Provider [phone] MD Curt Clark Attending Provider Curt Clark MD Primary Care Provider MD Curt Clark Primary Care Provider DO Claire Choi II Attending Provider [phone] DO Claire Choi II Attending Provider [phone] ELICIA RHODES Attending Unavailable CURT CLARK Primary Care Unavailable ELICIA RHODES Attending Unavailable ELICIA RHODES Referring Unavailable CURT CLARK Primary Care Unavailable ELICIA RHODES Referring Unavailable CURT CLARK Primary Care Unavailable MD Curt Clark Primary Care Provider RAMAKRISHNA Connolly Attending Provider Curt Clark MD Primary Care Provider MD Curt Clark Primary Care Provider RAMAKRISHNA Connolly Attending Provider DO Jesse Valdez Emergency Provider MD Pool Buck Admit Provider MD Pool Buck Attending Provider [phone] MD Cristiano Diaz Other Provider MD Sherron Li Other Provider MD Pj Montes Other Provider RAMAKRISHNA Pretty Other Provider DO Isaias Morgan Jr Other Provider [phone] MD Trent Patterson Attending Provider Curt Clark [...] lenalidomide Drug Allergy 04-12-20 24 Rash, itching [facility] oxybutynin (1 source) oxybutynin Drug Allergy 04-12-20 24 Rash, rash, hives [facility] pregabalin (1 source) pregabalin Drug Allergy 04-12-20 24 double vision [facility] (20 sources) oxybutynin; Translations: [oxybutynin] Drug Allergy 07-13-20 22 Hives, Rash [facility] 250 DO Work Phone: (20 sources) lenalidomide; Translations: [lenalidomide] Drug Allergy 08-24-20 16 Unknown, Rash, itching, Rash, itching [facility] (20 sources) pregabalin; Translations: [pregabalin] Drug Allergy 07-13-20 22 Unknown, double vision [facility] (11 sources) pregabalin; Translations: [Lyrica] Drug Allergy DOUBLE VISION [facility] (10 sources) REVILID Propensity to adverse reactions ITCHY [facility] Other (1 source) lenalidomide Drug Allergy 08-24-20 [facility] (1 source) oxybutynin Drug Allergy 12-27-19 [facility] (1 source) Allergies Reconciled Propensity to adverse reactions Unknown [facility] Other (1 source) patient allergy list reviewed by nurse or physicia Propensity to adverse reactions 11-24-19 Comment:Done [employer] Other (1 source) Acetaminophen / HYDROcodone Drug Allergy 03-05-20 [facility] (1 source) Pregabalin Propensity to adverse reactions 03-05-20 [facility] (1 source) lenalidomide Drug Allergy 09-24-20 [facility] (1 source) oxybutynin Drug Allergy 09-24-20 [facility] (1 source) pregabalin Drug Allergy 09-24-20 [facility] Medications Current Medications Medication Drug [...] Start: 02-11-2022 take 1 capsule by mo [facility] three times daily as needed Benzonatate 100 [...] mouth once daily. Active daratumumab (2 sources) [id number] Cytolytic Antibody Start: 12-17-2019 daratumumab mg, IV, q6wk, Refills(s) 0 Start Date: 12/17/19 Status: Ordered docosahexaenoic acid 120 mg / eicosapentaenoic acid 180 mg oral capsule (12 sources) take 1 capsule by mouth twice daily fish oil concentrate ([place]-3) 120-180 mg capsule Take 1 capsule (1 [...] every 12 hrs for 10 days Active [place] 8-Xrg-Tyl-Fish Oil (Fish Oil) 1,000 mg (120 mg-180 mg) capsule (5 sources) Start: 07-05-2024 [place] 3-Dha-Ep a-Fish Oil (Fish Oil) 1,000 mg (120 mg-180 mg) capsule Active 1 CAP PO Every 48 hours July 04, 2024 11:00pm Start: 07-05-2024 [place] 3-Dha-Ep a-Fish Oil (Fish Oil) 1,000 mg (120 mg-180 mg) capsule Active 1 CAP PO Every 48 hours July 05, 2024 12:00am [place]-3 Fatty Acids (FISH OIL PO) (1 source) [place]-3 Fatty Acids (FISH OIL PO) Take by [...] Status: Ordered take 1 capsule by mo [facility] twice daily take 1 capsule by mo [facility] twice daily Fish Oil 1000 MG 1 [...] PROCRIT INJECT ION - 1000 units Jun, [address] U raNITIdine 150 mg oral tablet (15 [...] aftercare (20 sources) Drug therapy finding; Translations: [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] Episodic Other aftercare (20 sources) Long-term current use of insulin; Translations: [FPC (current) use of insulin] 01-03-2024 Episodic Other aftercare (1 source) FPC (current) use of aspirin; Translations: [HALF-WAY CURRENT USE OF ASPIRIN] Onset: 3 Episodic Other aftercare (1 source) Other mcc (current) drug therapy; Translations: [OTH HALF-WAY CURRENT DRUG THERAPY] Onset: 3 Episodic Other aftercare (1 source) FPC (current) use of insulin; Translations: [HALF-WAY CURRENT USE OF INSULIN] Onset: 3 Episodic Other aftercare (1 source) 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 Performed By: #### A DDONUAPLUS #### [facility] [address] [place] [address] GFR/1.73 sq M.predicted MDRD (S/P/Bld) [Vol rate/Area] 18.292 mL/min/{1.73_m2} Normal [facility] Comment on above: Performed By: #### A DDONUAPLUS #### [address] Calcium [Mass/volume] in Ser um or PlasmaOrdered By: Trent Patterson on 09-19-2024 Calcium [Mass/Vol] 7.6 mg/dL Low 8.6-10.3 [facility] Comment on above: Performed By: #### A DDONUAPLUS #### [facility] [address] [place] [address] Capillary blood glucose leonor urement by glucometer (mass/volume)Ordered By: Trent Patterson on 09-19-2024 Glucose [Mass/Vol] 137 mg/dL Normal [facility] Comment on above: Random Glucose Refer ence Range is dependent on time and content of last meal. Glucose of more than 200 mg/dL in a nonstressed, ambulatory subject supports the diagnosis of Diabetes Mellitus. Result Comment: [place] om Glucose Reference Range is dependent on time and content of last meal. Glucose of more than 200 mg/dL in a nonstressed, ambulatory subject supports the diagnosis of Diabetes Mellitus. PERFORMED BY: [place] [address] PATHOLOGIST GUEST RELATIONS ASSOCIATE LUIS DEE M.D. Performed By: #### M G, CBC, BMP #### [facility] [address] [place] [address] Carbon dioxide, total [Moles /volume] in Serum or PlasmaOrdered By: Trent Patterson on 09-19-2024 CO2 [Moles/Vol] 20.5 mmol/L Low 21.0-31.0 [facility] Comment on above: Performed By: #### A DDONUAPLUS #### [facility] [address] [place] [address] [place] Chloride [Moles/volume] in S amanda or PlasmaOrdered By: Trent Patterson on 09-19-2024 Chloride [Moles/Vol] 115 mmol/L High 98-107 [facility] Comment on above: Performed By: #### A DDONUAPLUS #### [place] [address] [place] Creatinine [Mass/volume] in Serum or PlasmaOrdered By: Trent Patterson on 09-19-2024 Creatinine [Mass/Vol] 2.55 mg/dL High 0.60-1.20 [facility] Comment on above: Performed By: #### A DDONUAPLUS #### [facility] [address] [id number] [facility] echo transthoracicon [facility] echo transthoracic [facility] Main Conception [address] [place] [address] Echocardiogram Signed Patient: Hailee Trivedi MR#: [id number] 306 : 1940 Acct:[id number] Age/Sex: 84 / F ADM Date: 09/18/24 Loc: Room: [address] [place] [address] Type: ADM INOo Attending Dr: Trent Patterson MD Ordering Provider: Trent Patterson MD Date of Service: 09/18/2404/06/1148 [facility] echo transthoracic: elevated BNP Copies to: MD Camilla Del Toro MD, [facility] BSA: 2.0 m2 BP: 119/73 mmHg HR: [...] 09/19/24 1128 Signed By: Camilla Estrada MD, [facility] 09/19/24 1618 Normal [facility] Glucose Poct Glucometerson 1 11-19-2023 Glucose [Mass/Vol] 177 mg/dL Normal [facility] Comment on above: Result Comment: [place] om Glucose Reference Range is dependent on time and content of last meal. Glucose of more than 200 mg/dL in a nonstressed, ambulatory subject supports the diagnosis of Diabetes Mellitus. PERFORMED BY: [place] [phone] PATHOLOGIST GUEST RELATIONS ASSOCIATE LUIS DEE M.D. Performed By: #### A DDONUAPLUS #### [facility] [address] [place] [address] Glucose [Mass/Vol] 108 mg/dL Normal [facility] Comment on above: Result Comment: [place] om Glucose Reference Range is dependent on time and content of last meal. Glucose of more than 200 mg/dL in a nonstressed, ambulatory subject supports the diagnosis of Diabetes Mellitus. PERFORMED BY: [place] [phone] PATHOLOGIST GUEST RELATIONS ASSOCIATE LUIS DEE M.D. Performed By: #### M G, CBC, BMP #### [facility] [address] [place] [address] [place] Glucose [Mass/volume] in Ser um or PlasmaOrdered By: Trent Patterson on 09-19-2024 Glucose [Mass/Vol] 103 mg/dL High 70-100 [facility] Comment on above: ADA recommended refe rence rangeRandom Glucose Reference Range is dependent on time and content of last meal. Glucose of more than 200 mg/dL in a nonstressed, ambulatory subject supports the diagnosis of Diabetes Mellitus. Result Comment: [place] Glucose Reference Range is dependent on time and content of last meal. Glucose of more than 200 mg/dL in a nonstressed, ambulatory subject supports the diagnosis of Diabetes Mellitus. ADA recommended reference range Performed By: #### A DDONUAPLUS #### [address] No Panel InformationOrdered By: Trent Patterson on 09-19-2024 Estimated GFR (CKD-EPI) 18.292 mL/Min [facility] Creatinine Clearance (Chem 19.25 [facility] Potassium [Moles/volume] in Serum or PlasmaOrdered By: Trent Patterson on 09-19-2024 Potassium [Moles/Vol] 3.6 mmol/L Normal 3.5-5.1 [facility] Comment on above: Performed By: #### A DDONUAPLUS #### [address] Serum or plasma anion gap de terminationOrdered By: Trent Patterson on 09-19-2024 Anion gap [Moles/Vol] 9.1 mmol/L Normal 6.0-15.0 [facility] Comment on above: Performed By: #### A DDONUAPLUS #### [address] Sodium [Moles/volume] in Ser um or PlasmaOrdered By: Trent Patterson on 09-19-2024 Sodium [Moles/Vol] 141 mmol/L Normal 136-145 [facility] Comment on above: Performed By: #### A DDONUAPLUS #### [address] Urea nitrogen [Mass/volume] in Serum or PlasmaOrdered By: Trent Patterson on 09-19-2024 Urea nitrogen [Mass/Vol] 37 mg/dL High 7-25 [facility] Comment on above: Performed By: #### A DDONUAPLUS #### [address] Automated basophil %Ordered By: Roseline Overton on 09-18-2024 Basophils/100 WBC (Bld) 0.8 % Normal . [facility] Comment on above: Performed By: #### M G, CBC, BMP #### [address] Automated basophil countOrde red By: Roseline Overton on 09-18-2024 Basophils (Bld) [#/Vol] 0.1 10*3/uL Normal 0.0-0.2 [facility] Comment on above: Result Comment: PERF ORMED BY: [place] [address] PATHOLOGIST GUEST RELATIONS ASSOCIATE LUIS DEE M.D. Performed By: #### M G, CBC, BMP #### [address] Automated blood monocyte cou ntOrdered By: Roseline Overton on 09-18-2024 Monocytes (Bld) [#/Vol] 0.9 10*3/uL High 0.0-0.8 [facility] Comment on above: Performed By: #### M G, CBC, BMP #### [address] Automated eosinophil %Ordere d By: Roseline Overton on 09-18-2024 Eosinophils/100 WBC (Bld) 2.3 % Normal . [facility] Comment on above: Performed By: #### M G, CBC, BMP #### [address] Automated eosinophil countOr dered By: Roseline Overton on 09-18-2024 Eosinophils (Bld) [#/Vol] 0.2 10*3/uL Normal 0.0-0.45 [facility] Comment on above: Performed By: #### M G, CBC, BMP #### [address] Automated monocyte %Ordered By: Roseline Overton on 09-18-2024 Monocytes/100 WBC (Bld) 8.7 % Normal . [facility] Comment on above: Performed By: #### M G, CBC, BMP #### [address] Automated neutrophil %Ordere d By: Roseline Overton on 09-18-2024 Neutrophils/100 WBC (Bld) 81.6 % Normal . [facility] Comment on above: Performed By: #### M G, CBC, BMP #### [facility] [address] Basic Metabolic Panelon 11-0 -2023 Anion gap [Moles/Vol] 11.5 mmol/L Normal 6.0-15.0 [facility] Comment on above: Performed By: #### M G, CBC, BMP #### [facility] [address] [place] [address] [place] Calcium [Mass/Vol] 7.5 mg/dL Low 8.6-10.3 [facility] Comment on above: Performed By: #### M G, CBC, BMP #### [facility] [address] [place] [address] [place] Chloride [Moles/Vol] 112 mmol/L High 98-107 [facility] Comment on above: Performed By: #### M G, CBC, BMP #### [facility] [address] CO2 [Moles/Vol] 17.4 mmol/L Low 21.0-31.0 [facility] Comment on above: Performed By: #### M G, CBC, BMP #### [facility] [address] [place] [address] [place] Creatinine [Mass/Vol] 2.58 mg/dL High 0.60-1.20 [facility] Comment on above: Performed By: #### M G, CBC, BMP #### [facility] [address] [place] [address] [place] Creatinine Clr Calc Pharmacy 18.85 Normal [facility] Comment on above: Performed By: #### M G, CBC, BMP #### [facility] [address] [place] [address] [place] GFR/1.73 sq M.predicted MDRD (S/P/Bld) [Vol rate/Area] 18.037 mL/min/{1.73_m2} Normal [facility] Comment on above: Performed By: #### M G, CBC, BMP #### [facility] [address] [place] [address] [place] Glucose [Mass/Vol] 112 mg/dL High 70-100 [facility] Comment on above: Result Comment: [place] Glucose Reference Range is dependent on time and content of last meal. Glucose of more than 200 mg/dL in a nonstressed, ambulatory subject supports the diagnosis of Diabetes Mellitus. ADA recommended reference range Performed By: #### M G, CBC, BMP #### [facility] [address] Potassium [Moles/Vol] 3.9 mmol/L Normal 3.5-5.1 [facility] Comment on above: Performed By: #### M G, CBC, BMP #### [facility] [address] [place] [address] Sodium [Moles/Vol] 137 mmol/L Normal 136-145 [facility] Comment on above: Performed By: #### M G, CBC, BMP #### [facility] [address] [place] [address] Urea nitrogen [Mass/Vol] 40 mg/dL High 7-25 [facility] Comment on above: Performed By: #### M G, CBC, BMP #### [address] Complete Blood Count Auto Di ffon 09-18-2024 Mean Corpuscular HGB Conc 33.8 g/dL Normal 32.0-35.0 [facility] Comment on above: Performed By: #### M G, CBC, BMP #### [place] [address] [place] NRBC% 0.0 /100{WBC} Normal 0-0.5 [facility] Comment on above: Performed By: #### M G, CBC, BMP #### [facility] [address] [place] [address] [place] ECG 12 lead ECGon 09-18-2024 ECG 12 lead ECG [facility] Main [facility]ception [address] [place] [address] Electrocardiograph Report Signed Patient: Hailee Trivedi MR#: [id number] 306 : 1940 Acct:[id number] Age/Sex: 84 / F ADM Date: 09/18/24 Loc: Room: [address] [place] [address] Type: ADM INOo Attending Dr: Trent Patterson [...] change was found Confirmed by NATALIE VELAZQUEZ [facility] ([id number]) on 09/19/2024 2:53:36 PM Referred By: Electronically Signed By: CAMILLA ESTRADA MD FAC Transcribed By: MUS Signed By Camilla Estrada MD, FACC 09/19/24 1453 Normal [facility] Erythrocyte distribution wid th [Ratio] by Automated countOrdered By: Roseline Overton on 09-18-2024 Erythrocyte distribution width (RBC) [Ratio] 14.1 % Normal 11.9-15.3 [facility] Comment on above: Performed By: #### M G, CBC, BMP #### [facility] [address] [place] [address] Erythrocytes [#/volume] in B lood by Automated countOrdered By: Roseline Overton on 09-18-2024 RBC (Bld) [#/Vol] 3.72 10*6/uL Normal 3.60-5.00 [facility] Comment on above: Performed By: #### M G, CBC, BMP #### [facility] [address] [place] [address] Glucose Poct Glucometerson 1 11-18-2023 Glucose [Mass/Vol] 177 mg/dL Normal [facility] Comment on above: Result Comment: [place] Glucose Reference Range is dependent on time and content of last meal. Glucose of more than 200 mg/dL in a nonstressed, ambulatory subject supports the diagnosis of Diabetes Mellitus. PERFORMED BY: [place] [address] PATHOLOGIST GUEST RELATIONS ASSOCIATE LUIS DEE M.D. Performed By: #### M G, CBC, BMP #### [address] Commemt1 Glu2: Cleaned Meter Normal [facility] Comment on above: Result Comment: PERF ORMED BY: [place] [address] PATHOLOGIST GUEST RELATIONS ASSOCIATE LUIS DEE M.D. Performed By: #### A DDONUAPLUS #### [place] [address] [place] Glucose [Mass/Vol] 158 mg/dL Normal [facility] Comment on above: Result Comment: [place] Glucose Reference Range is dependent on time and content of last meal. Glucose of more than 200 mg/dL in a nonstressed, ambulatory subject supports the diagnosis of Diabetes Mellitus. Performed By: #### A DDONUAPLUS #### [address] Commemt1 Glu2: Cleaned Meter Normal [facility] Comment on above: Result Comment: PERF ORMED BY: [place] [address] PATHOLOGIST GUEST RELATIONS ASSOCIATE LUIS DEE M.D. Performed By: #### M G, CBC, BMP #### [place] [address] [place] Glucose [Mass/Vol] 145 mg/dL Normal [facility] Comment on above: Result Comment: [place] om Glucose Reference Range is dependent on time and content of last meal. Glucose of more than 200 mg/dL in a nonstressed, ambulatory subject supports the diagnosis of Diabetes Mellitus. Performed By: #### M G, CBC, BMP #### [address] Commemt1 Glu2: Cleaned Meter Normal [facility] Comment on above: Result Comment: PERF ORMED BY: [place] [address] PATHOLOGIST GUEST RELATIONS ASSOCIATE LUIS DEE M.D. Performed By: #### M G, CBC, BMP #### [address] Glucose [Mass/Vol] 177 mg/dL Normal [facility] Comment on above: Result Comment: [place] om Glucose Reference Range is dependent on time and content of last meal. Glucose of more than 200 mg/dL in a nonstressed, ambulatory subject supports the diagnosis of Diabetes Mellitus. Performed By: #### M G, CBC, BMP #### [address] Glucose [Mass/Vol] 111 mg/dL Normal [facility] Comment on above: Result Comment: [place] Glucose Reference Range is dependent on time and content of last meal. Glucose of more than 200 mg/dL in a nonstressed, ambulatory subject supports the diagnosis of Diabetes Mellitus. PERFORMED BY: [place] [address] PATHOLOGIST GUEST RELATIONS ASSOCIATE LUIS DEE M.D. Performed By: #### M G, CBC, BMP #### [address] Hematocrit [Volume Fraction] of Blood by Automated countOrdered By: Roseline Overton on 09-18-2024 Hematocrit (Bld) [Volume fraction] 35.5 % Normal 34.0-46.4 [facility] Comment on above: Performed By: #### M G, CBC, BMP #### [address] Hemoglobin [Mass/volume] in BloodOrdered By: Roseline Overton on 09-18-2024 Hemoglobin (Bld) [Mass/Vol] 12.0 g/dL Normal 11.8-15.4 [facility] Comment on above: Performed By: #### M G, CBC, BMP #### [address] Leukocytes [#/volume] correc dominick for nucleated erythrocytes in Blood by Automated counOrdered By: Roesline Overton on 09-18-2024 WBC corrected for nucl RBC Auto (Bld) [#/Vol] 9.8 10*3/uL 3.8-11.6 [facility] Leukocytes [#/volume] in Blo od by Automated countOrdered By: Roseline Overton on 09-18-2024 WBC (Bld) [#/Vol] 9.8 10*3/uL Normal 3.8-11.6 [facility] Comment on above: Performed By: #### M G, CBC, BMP #### [address] Lymphocytes [#/volume] in Bl ood by Automated countOrdered By: Roseline Overton on 09-18-2024 Lymphocytes (Bld) [#/Vol] 0.7 10*3/uL Low 1.00-4.8 [facility] Comment on above: Performed By: #### M G, CBC, BMP #### [address] Lymphocytes/100 leukocytes i n Blood by Automated countOrdered By: Roseline Overton on 09-18-2024 Lymphocytes/100 WBC (Bld) 6.6 % Normal . [facility] Comment on above: Performed By: #### M G, CBC, BMP #### [address] MCH [Entitic mass] by Automa dominick countOrdered By: Roseline Overton on 09-18-2024 MCH (RBC) [Entitic mass] 32.3 pg Normal 24.7-34.3 [facility] Comment on above: Performed By: #### M G, CBC, BMP #### [address] MCHC Auto (RBC) [Mass/Vol]Or dered By: Roseline Overton on 09-18-2024 MCHC (RBC) [Mass/Vol] 33.8 g/dL 32.0-35.0 [facility] MCV [Entitic volume] by Auto mated countOrdered By: Roseline Overton on 09-18-2024 MCV (RBC) [Entitic vol] 95.4 fL Normal 80-100 [facility] Comment on above: Performed By: #### M G, CBC, BMP #### [facility] [address] [place] [address] Magnesium [Mass/volume] in S amanda or PlasmaOrdered By: Roseline Overton on 09-18-2024 Magnesium [Mass/Vol] 1.7 mg/dL Low 1.9-2.7 [facility] Comment on above: Result Comment: PERF ORMED BY: [place] [address] PATHOLOGIST GUEST RELATIONS ASSOCIATE LUIS DEE M.D. Performed By: #### M G, CBC, BMP #### [facility] [address] [place] [address] Neutrophils [#/volume] in Bl ood by Automated countOrdered By: Roseline Overton on 09-18-2024 Neutrophils (Bld) [#/Vol] 8.0 10*3/uL High 1.8-7.7 [facility] Comment on above: Performed By: #### M Dalia, CBC, BMP #### [facility] [address] [place] [address] No Panel InformationOrdered By: Trent Patterson on 09-18-2024 Bedside Glucose Comment Glu2: cleaned meter [facility] Nucleated erythrocytes [Pres ence] in Blood by Automated countOrdered By: Roseline Overton on 09-18-2024 Nucleated RBC Auto Ql (Bld) 0.0 /100{WBC} 0-0.5 [facility] Platelet mean volume [Entiti c volume] in Blood by Automated countOrdered By: Roseline Overton on 09-18-2024 Platelet mean volume (Bld) [Entitic vol] 10.2 fL Normal 6.3-10.7 [facility] Comment on above: Performed By: #### M G, CBC, BMP #### [facility] [address] [place] [address] Platelets [#/volume] in Bloo d by Automated countOrdered By: Roseline Overton on 09-18-2024 Platelets (Bld) [#/Vol] 137 10*3/uL Low 150-450 [facility] Comment on above: Performed By: #### M G, CBC, BMP #### [address] Troponin I High Sensitivityo n 09-18-2024 Troponin I High Sensitivity 21.2 pg/mL High 0.0-15.0 [facility] Comment on above: Result Comment: PERF ORMED BY: [place] [address] PATHOLOGIST G[employer] RELATIONS ASSOCIATE LUIS DEE M.D. Performed By: #### A DDONUAPLUS #### [address] Troponin I High Sensitivity 9.1 pg/mL Normal 0.0-15.0 [facility] Comment on above: Result Comment: PERF ORMED BY: [place] [address] PATHOLOGIST GUEST RELATIONS ASSOCIATE LUIS DEE M.D. Performed By: #### M G, CBC, BMP #### [address] Troponin I.cardiac [Mass/vol ume] in Serum or Plasma by Detection limit <= 0.01 ng/Ordered By: Roseline Overton on 09-18-2024 Troponin I.cardiac DL <= 0.01 ng/mL [Mass/Vol] 21.2 pg/mL High 0.0-15.0 [facility] Activated partial thrombopla stin time (aPTT) in platelet poor plasma by coagulation aOrdered By: Jesse Valdez on 09-17-2024 aPTT Coag (PPP) [Time] 30.4 s 25.1-36.5 [facility] Comment on above: A hematocrit value g reater than 55% may lead to inaccurate results in coagulation testing. Patients having hematocrit values >55% require a special collection tube for coagulation studies. Please contact the laboratory at [phone] for redraw instructions. Alanine aminotransferase [En zymatic activity/volume] in Serum or PlasmaOrdered By: Jesse Valdez on 09-17-2024 ALT [Catalytic activity/Vol] 15 U/L Normal 7-52 [facility] Comment on above: Performed By: #### M G, CBC, BMP #### [address] Albumin [Mass/volume] in Ser um or Plasma by Bromocresol green (BCG) dye binding methoOrdered By: Jesse Valdez on 09-17-2024 Albumin BCG dye [Mass/Vol] 2.7 g/dL Low 3.5-5.7 [facility] Alkaline phosphatase [Enzyma tic activity/volume] in Serum or PlasmaOrdered By: Jesse Valdez on 09-17-2024 ALP [Catalytic activity/Vol] 64 U/L Normal 34-104 [facility] Comment on above: Performed By: #### M G, CBC, BMP #### [address] Aspartate aminotransferase [ Enzymatic activity/volume] in Serum or PlasmaOrdered By: Jesse Valdez on 09-17-2024 AST [Catalytic activity/Vol] 14 U/L Normal 13-39 [facility] Comment on above: Performed By: #### M G, CBC, BMP #### [address] Automated basophil %Ordered By: Jesse Valdez on 09-17-2024 Basophils/100 WBC (Bld) 0.3 % Normal . [facility] Comment on above: Performed By: #### H S TROP, PTT, CK, BNP, PT, MG, TSH3, CMP, SCAN CBC #### [address] Automated basophil countOrde red By: Jesse Valdez on 09-17-2024 Basophils (Bld) [#/Vol] 0.0 10*3/uL Normal 0.0-0.2 [facility] Comment on above: Performed By: #### H S TROP, PTT, CK, BNP, PT, MG, TSH3, CMP, SCAN CBC #### [address] Automated blood monocyte cou ntOrdered By: Jesse Valdez on 09-17-2024 Monocytes (Bld) [#/Vol] 0.6 10*3/uL Normal 0.0-0.8 [facility] Comment on above: Performed By: #### H S TROP, PTT, CK, BNP, PT, MG, TSH3, CMP, SCAN CBC #### [address] Automated eosinophil %Ordere d By: Jesse Valdez on 09-17-2024 Eosinophils/100 WBC (Bld) 2.1 % Normal . [facility] Comment on above: Performed By: #### H S TROP, PTT, CK, BNP, PT, MG, TSH3, CMP, SCAN CBC #### [address] Automated eosinophil countOr dered By: Jesse Valdez on 09-17-2024 Eosinophils (Bld) [#/Vol] 0.3 10*3/uL Normal 0.0-0.45 [facility] Comment on above: Performed By: #### H S TROP, PTT, CK, BNP, PT, MG, TSH3, CMP, SCAN CBC #### [address] Automated monocyte %Ordered By: Jesse Valdez on 09-17-2024 Monocytes/100 WBC (Bld) 4.9 % Normal . [facility] Comment on above: Performed By: #### H S TROP, PTT, CK, BNP, PT, MG, TSH3, CMP, SCAN CBC #### [address] Automated neutrophil %Ordere d By: Jesse Valdez on 09-17-2024 Neutrophils/100 WBC (Bld) 87.9 % Normal . [facility] Comment on above: Performed By: #### H S TROP, PTT, CK, BNP, PT, MG, TSH3, CMP, SCAN CBC #### [address] BNP ser/plasOrdered By: Lul Valdez on 09-17-2024 Natriuretic peptide B (Bld) [Mass/Vol] 660.0 pg/mL High 5-100 [facility] Comment on above: Result Comment: PERF ORMED BY: [place] [address] PATHOLOGIST G[employer]ATIONS ASSOCIATE LUIS DEE M.D. Performed By: #### M G, CBC, BMP #### [address] Bacteria [Presence] in Urine by AutomatedOrdered By: Jesse Valdez on 09-17-2024 Bacteria Auto Ql (U) None seen [HPF] None Seen [facility] Bilirubin Test strip Ql (U)O rdered By: Jesse Valdez on 09-17-2024 Bilirubin Ql (U) Negative Negative [facility] Bilirubin.total [Mass/volume ] in Serum or PlasmaOrdered By: Jesse Valdez on 09-17-2024 Bilirubin [Mass/Vol] 0.4 mg/dL Normal 0.3-1.0 [facility] Comment on above: Performed By: #### M G, CBC, BMP #### [address] head/brain wo conon 09-17 CT head/brain wo con [facility] [place] [address] CT Scan Report Signed Patient: Hailee Trivedi MR#: [id number] 306 : 1940 Acct:[id number] Age/Sex: 84 / F ADM Date: 09/17/24 Loc: ER Room: Type: [facility] ER Attending Dr: Copies to: Jesse [...] Armando Huynh M.D.09/17/2024 10:40 PM Dictation Location: [place] [address] Transcribed By: AISHA 09/17/242239 Dictated By: Armando Huynh II, MD 09/17/242232 Signed By: 09/17/242239 Normal [facility] Calcium [Mass/volume] in Ser um or PlasmaOrdered By: Jesse Valdez on 09-17-2024 Calcium [Mass/Vol] 7.7 mg/dL Low 8.6-10.3 [facility] Comment on above: Performed By: #### M G, CBC, BMP #### [address] Capillary blood glucose leonor urement by glucometer (mass/volume)Ordered By: Jesse Valdez on 09-17-2024 Glucose [Mass/Vol] 138 mg/dL Normal [facility] Comment on above: Random Glucose Refer ence Range is dependent on time and content of last meal. Glucose of more than 200 mg/dL in a nonstressed, ambulatory subject supports the diagnosis of Diabetes Mellitus. Result Comment: [place] Glucose Reference Range is dependent on time and content of last meal. Glucose of more than 200 mg/dL in a nonstressed, ambulatory subject supports the diagnosis of Diabetes Mellitus. Performed By: #### A DDONUAPLUS #### [place] [id number] [facility] Carbon dioxide, total [Moles /volume] in Serum or PlasmaOrdered By: Jesse Valdez on 09-17-2024 CO2 [Moles/Vol] 17.5 mmol/L Low 21.0-31.0 [facility] Comment on above: Performed By: #### M Dalia CBC, BMP #### [address] Chloride [Moles/volume] in S amanda or PlasmaOrdered By: Jesse Valdez on 09-17-2024 Chloride [Moles/Vol] 112 mmol/L High 98-107 [facility] Comment on above: Performed By: #### M Dalia CBC, BMP #### [address] Color of Urine by AutoOrdere d By: Jesse Valdez on 09-17-2024 Color (U) Yellow Normal Yellow [facility] Comment on above: Order Comment: Name Collection Type:: Clean-Voided Midstream Performed By: #### A DDONUAPLUS #### [address] Comprehensive Metabolic Pane natalia 09-17-2024 Albumin [Mass/Vol] 2.7 g/dL Low 3.5-5.7 [facility] Comment on above: Performed By: #### M Dalia CBC, BMP #### [place] [address] [place] Creatinine Clr Calc Pharmacy 18.35 Normal [facility] Comment on above: Performed By: #### M Dalia CBC, BMP #### [place] [address] [place] GFR/1.73 sq M.predicted MDRD (S/P/Bld) [Vol rate/Area] 17.388 mL/min/{1.73_m2} Normal [facility] Comment on above: Performed By: #### M Dalia CBC, BMP #### [address] Creatine kinase [Enzymatic a ctivity/volume] in Serum or PlasmaOrdered By: Jesse Valdez on 09-17-2024 CK [Catalytic activity/Vol] 25 U/L Low 30-223 [facility] Comment on above: Performed By: #### M G, CBC, BMP #### [facility] [address] [place] [address] Creatinine [Mass/volume] in Serum or PlasmaOrdered By: Jesse Valdez on 09-17-2024 Creatinine [Mass/Vol] 2.66 mg/dL High 0.60-1.20 [facility] Comment on above: Performed By: #### M G, CBC, BMP #### [address] Dipstick and Microscopicon 1 11-17-2023 Bacteria,Urine None Seen Normal None Seen [facility] Comment on above: Order Comment: Name Collection Type:: Clean-Voided Midstream Performed By: #### A DDONUAPLUS #### [address] Bilirubin,Urine Negative Normal Negative [facility] Comment on above: Order Comment: Name Collection Type:: Clean-Voided Midstream Performed By: #### A DDONUAPLUS #### [address] Glucose Ql (U) Normal Normal Normal [facility] Comment on above: Order Comment: Name Collection Type:: Clean-Voided Midstream Performed By: #### A DDONUAPLUS #### [address] Hyaline Casts,Urine None Normal 0-8 [facility] Comment on above: Order Comment: Name Collection Type:: Clean-Voided Midstream Performed By: #### A DDONUAPLUS #### [place] [address] [place] Mucus,Urine Rare Normal [facility] Comment on above: Order Comment: Name Collection Type:: Clean-Voided Midstream Result Comment: PERF ORMED BY: [place] [address] PATHOLOGIST G[employer] RELATIONS ASSOCIATE LUIS DEE M.D. Performed By: #### A DDONUAPLUS #### [address] [address] [place] Nitrite,Urine Negative Normal Negative [facility] Comment on above: Order Comment: Name Collection Type:: Clean-Voided Midstream Performed By: #### A DDONUAPLUS #### [address] Occult Blood,Urine Negative Normal Negative [facility] Comment on above: Order Comment: Name Collection Type:: Clean-Voided Midstream Result Comment: PERF ORMED BY: [place] [address] PATHOLOGIST GUEST RELATIONS ASSOCIATE LUIS DEE M.D. Performed By: #### A DDONUAPLUS #### [address] RBC,Urine 1-2 Normal 0-4 [facility] Comment on above: Order Comment: Name Collection Type:: Clean-Voided Midstream Performed By: #### A DDONUAPLUS #### [address] Specificy [place],Urine 1.023 Normal 1.00 1-1.03 0 [facility] Comment on above: Order Comment: Name Collection Type:: Clean-Voided Midstream Performed By: #### A DDONUAPLUS #### [address] Squamous Epithelial Cell,Urine 1-2 Normal 0-2 [facility] Comment on above: Order Comment: Name Collection Type:: Clean-Voided Midstream Performed By: #### A DDONUAPLUS #### [address] Urobilinogen,Urine Normal Normal Normal [facility] Comment on above: Order Comment: Name Collection Type:: Clean-Voided Midstream Performed By: #### A DDONUAPLUS #### [address] WBC CLUMP, Urine Occasional High None Seen [facility] Comment on above: Order Comment: Name Collection Type:: Clean-Voided Midstream Performed By: #### A DDONUAPLUS #### [address] [place] [address] [facility] WBC,Urine 3-4 Normal 0-4 [facility] Comment on above: Order Comment: Name Collection Type:: Clean-Voided Midstream Performed By: #### A DDONUAPLUS #### [facility] [address] [place], [place] [id number] [facility] ECG 12 lead ECGon 09-17-2024 ECG 12 lead ECG [facility] [place] [address] Electrocardiograph Report Signed Patient: Hailee Trivedi MR#: [id number] 306 : 1940 Acct:[id number] Age/Sex: 84 / F ADM Date: 09/18/24 Loc: Room: [address] [place] [address] Type: ADM INOo Attending Dr: Trent Patterson [...] ventricular response Confirmed by Jesse VALDEZ DO ([id number]) on 09/18/2024 11:57:16 PM Referred By: Electronically Signed By: Jesse VALDEZ DO Transcribed By: MUS Signed By Jesse Valdez DO 1 11/18/23 2357 Normal [facility] ECG 12 lead ECG [facility] [place] [id number] Electrocardiograph Report Signed Patient: Hailee Trivedi MR#: [id number] 306 : 1940 Acct:[id number] Age/Sex: 84 / F ADM Date: 09/17/24 Loc: ER Room: Type: [facility] ER Attending Dr: Ordering Provider: Jesse [...] Atrial fibrillation Confirmed by Jesse VALDEZ DO ([id number]) on 09/18/2024 12:49:30 AM Referred By: Electronically Signed By: Jesse VALDEZ DO Transcribed By: MUS Signed By Jesse Valdez DO 1 11/18/23 0049 Normal [facility] Epithelial cells.squamous [# /area] in Urine sediment by Automated countOrdered By: Jesse Valdez on 09-17-2024 Epithelial cells.squamous Auto (Urine sed) [#/Area] 1-2 [HPF] 0-2 [facility] Erythrocyte distribution wid th [Ratio] by Automated countOrdered By: Jesse Valdez on 09-17-2024 Erythrocyte distribution width (RBC) [Ratio] 14.3 % Normal 11.9-15.3 [facility] Comment on above: Performed By: #### H S TROP, PTT, CK, BNP, PT, MG, TSH3, CMP, SCAN CBC #### [facility] [address] [place] [address] Erythrocytes [#/area] in Uri ne sediment by Automated countOrdered By: eJsse Valdez on 09-17-2024 RBC Auto (Urine sed) [#/Area] 1-2 [HPF] 0-4 [facility] Erythrocytes [#/volume] in B lood by Automated countOrdered By: Jesse Valdez on 09-17-2024 RBC (Bld) [#/Vol] 3.77 10*6/uL Normal 3.60-5.00 [facility] Comment on above: Performed By: #### H S TROP, PTT, CK, BNP, PT, MG, TSH3, CMP, SCAN CBC #### [facility] [address] [place] [address] Glucose Poct Glucometerson 1 11-17-2023 Commemt1 Glu2: Cleaned Meter Normal [facility] Comment on above: Result Comment: PERF ORMED BY: [place] [address] PATHOLOGIST GUEST RELATIONS ASSOCIATE LUIS DEE M.D. Performed By: #### A DDONUAPLUS #### [address] Glucose [Mass/volume] in Ser um or PlasmaOrdered By: Jesse Valdez on 09-17-2024 Glucose [Mass/Vol] 141 mg/dL High 70-100 [facility] Comment on above: ADA recommended refe rence rangeRandom Glucose Reference Range is dependent on time and content of last meal. Glucose of more than 200 mg/dL in a nonstressed, ambulatory subject supports the diagnosis of Diabetes Mellitus. Result Comment: [place] om Glucose Reference Range is dependent on time and content of last meal. Glucose of more than 200 mg/dL in a nonstressed, ambulatory subject supports the diagnosis of Diabetes Mellitus. ADA recommended reference range Performed By: #### M G, CBC, BMP #### [address] Glucose [Mass/volume] in Uri ne by Test stripOrdered By: Jesse Valdez on 09-17-2024 Glucose Test strip (U) [Mass/Vol] Normal mg/dL Normal [facility] Hematocrit [Volume Fraction] of Blood by Automated countOrdered By: Jesse Valdez on 09-17-2024 Hematocrit (Bld) [Volume fraction] 36.0 % Normal 34.0-46.4 [facility] Comment on above: Performed By: #### H S TROP, PTT, CK, BNP, PT, MG, TSH3, CMP, SCAN CBC #### [facility] [address] [place] [id number] [facility] Hemoglobin Test strip Ql (U) Ordered By: Jesse Valdez on 09-17-2024 Hemoglobin Ql (U) Negative Negative [facility] Hemoglobin [Mass/volume] in BloodOrdered By: Jesse Valdez on 09-17-2024 Hemoglobin (Bld) [Mass/Vol] 12.0 g/dL Normal 11.8-15.4 [facility] Comment on above: Performed By: #### H S TROP, PTT, CK, BNP, PT, MG, TSH3, CMP, SCAN CBC #### [facility] [address] [place] [id number] [place] Hyaline casts [#/area] in Ur ine sediment by Automated countOrdered By: Jesse Valdez on 09-17-2024 Hyaline casts Auto (Urine sed) [#/Area] None [LPF] 0-8 [facility] INR in Platelet poor plasma by Coagulation assayOrdered By: Jesse Valdez on 09-17-2024 INR Coag (PPP) [Relative time] 1.5 {INR} Normal [facility] Comment on above: INR Therapeutic Rang [...] By: #### M G, CBC, BMP #### [facility] [address] [place] [id number] [place] Ketones [Presence] in Urine by Test stripOrdered By: Jesse Valdez on 09-17-2024 Ketones Ql (U) Negative Normal Negative [facility] Comment on above: Order Comment: Name Collection Type:: Clean-Voided Midstream Performed By: #### A DDONUAPLUS #### [facility] [address] [place] [id number] [place] Lactate [Moles/volume] in Se rum or PlasmaOrdered By: Jesse Valdez on 09-17-2024 Lactate [Moles/Vol] 0.9 mmol/L Normal 0.5-2.2 [facility] Comment on above: Result Comment: PERF ORMED BY: [place] [address] PATHOLOGIST G[employer] RELATIONS ASSOCIATE LUIS DEE M.D. Performed By: #### A DDONUAPLUS #### [facility] [address] Leukocyte clumps [Presence] in Urine by AutomatedOrdered By: Jesse Valdez on 09-17-2024 Leukocyte clumps Auto Ql (U) Occasional [LPF] High None Seen [facility] Leukocyte esterase [Presence ] in Urine by Test stripOrdered By: Jesse Valdez on 09-17-2024 Leukocyte esterase Test strip Ql (U) Negative Normal Negative [facility] Comment on above: Order Comment: Name Collection Type:: Clean-Voided Midstream Performed By: #### A DDONUAPLUS #### [facility] [address] [place] [address] Leukocytes [#/area] in Urine sediment by Automated countOrdered By: Jesse Valdez on 09-17-2024 WBC Auto (Urine sed) [#/Area] 3-4 [HPF] 0-4 [facility] Leukocytes [#/volume] correc dominick for nucleated erythrocytes in Blood by Automated counOrdered By: Jesse Valdez on 09-17-2024 WBC corrected for nucl RBC Auto (Bld) [#/Vol] 12.0 10*3/uL High 3.8-11.6 [facility] Leukocytes [#/volume] in Blo od by Automated countOrdered By: Jesse Valdez on 09-17-2024 WBC (Bld) [#/Vol] 12.0 10*3/uL High 3.8-11.6 [facility] Comment on above: Performed By: #### H S TROP, PTT, CK, BNP, PT, MG, TSH3, CMP, SCAN CBC #### [facility] [address] [place] [address] [place] Lymphocytes [#/volume] in Bl ood by Automated countOrdered By: Jesse Valdez on 09-17-2024 Lymphocytes (Bld) [#/Vol] 0.6 10*3/uL Low 1.00-4.8 [facility] Comment on above: Performed By: #### H S TROP, PTT, CK, BNP, PT, MG, TSH3, CMP, SCAN CBC #### [facility] [address] Lymphocytes/100 leukocytes i n Blood by Automated countOrdered By: Jesse Valdez on 09-17-2024 Lymphocytes/100 WBC (Bld) 4.8 % Normal . [facility] Comment on above: Performed By: #### H S TROP, PTT, CK, BNP, PT, MG, TSH3, CMP, SCAN CBC #### [address] MCH [Entitic mass] by Automa dominick countOrdered By: Jesse Valdez on 09-17-2024 MCH (RBC) [Entitic mass] 31.8 pg Normal 24.7-34.3 [facility] Comment on above: Performed By: #### H S TROP, PTT, CK, BNP, PT, MG, TSH3, CMP, SCAN CBC #### [address] MCHC Auto (RBC) [Mass/Vol]Or dered By: Jesse Valdez on 09-17-2024 MCHC (RBC) [Mass/Vol] 33.3 g/dL 32.0-35.0 [facility] MCV [Entitic volume] by Auto mated countOrdered By: Jesse Valdez on 09-17-2024 MCV (RBC) [Entitic vol] 95.5 fL Normal 80-100 [facility] Comment on above: Performed By: #### H S TROP, PTT, CK, BNP, PT, MG, TSH3, CMP, SCAN CBC #### [address] Magnesium [Mass/volume] in S amanda or PlasmaOrdered By: Jesse Valdez on 09-17-2024 Magnesium [Mass/Vol] 1.6 mg/dL Low 1.9-2.7 [facility] Comment on above: Performed By: #### M G, CBC, BMP #### [address] Monocyte distribution width [Entitic volume] in Blood by AutomatedOrdered By: Jesse Valdez on 09-17-2024 Monocyte distribution width Auto (Bld) [Entitic vol] 29.77 % High 0.00-20.00 [facility] Comment on above: For adults in ED, MD W > 20.0 may be associated with a higher risk of sepsis during the first 12 hrs of hospital admission Mucus [Presence] in Urine by AutomatedOrdered By: Jesse Valdez on 09-17-2024 Mucus Auto Ql (U) Rare [LPF] [facility] Neutrophils [#/volume] in Bl ood by Automated countOrdered By: Jesse Valdez on 09-17-2024 Neutrophils (Bld) [#/Vol] 10.6 10*3/uL High 1.8-7.7 [facility] Comment on above: Performed By: #### H S TROP, PTT, CK, BNP, PT, MG, TSH3, CMP, SCAN CBC #### [facility] [address] Nitrite Test strip Ql (U)Ord ered By: Jesse Valdez on 09-17-2024 Nitrite Ql (U) Negative Negative [facility] No Panel InformationOrdered By: Jesse Valdez on 09-17-2024 Blood Gas Critical Value See comment [facility] Comment on above: Critical Value rizvi d on: 09/17/2024 at 22:50 Blood Gas Sample Site Venous Fir [facility] FiO2 21 % [facility] Venous Blood Base Excess -8.6 mmol/L Low -3.0-3.0 [facility] Venous Blood Oxygen Saturation 76.2 % High 73.0-76.0 [facility] Venous Blood Partial Pressure CO2 30.5 mm[Hg] Low 38.0-50.0 [facility] Venous Blood pH 7.34 7.32-7.43 [facility] Estimated GFR (CKD-EPI) 17.388 mL/Min [facility] Creatinine Clearance (Chem 18.35 [facility] Bedside Glucose Comment Glu2: cleaned meter [facility] Nucleated erythrocytes [Pres ence] in Blood by Automated countOrdered By: Jesse Valdez on 09-17-2024 Nucleated RBC Auto Ql (Bld) 0.0 /100{WBC} 0-0.5 [facility] Partial Thromboplastin Timeo n 09-17-2024 aPTT Coag (Bld) [Time] 30.4 s Normal 25.1-36.5 [facility] Comment on above: Result Comment: A he matocrit value greater than 55% may lead to inaccurate results in coagulation testing. Patients having hematocrit values >55% require a special collection tube for coagulation studies. Please contact the laboratory at [phone] for redraw instructions. PERFORMED BY: [place] [address] PATHOLOGIST GUE[employer] RELATIONS ASSOCIATE LUIS DEE M.D. Performed By: #### M G, CBC, BMP #### [facility] [address] [place] [address] Platelet adequacy [Presence] in Blood by Light microscopyOrdered By: Jesse Valdez on 09-17-2024 Platelets LM Ql (Bld) Normal Normal [facility] Platelet mean volume [Entiti c volume] in Blood by Automated countOrdered By: Jesse Valdez on 09-17-2024 Platelet mean volume (Bld) [Entitic vol] 10.3 fL Normal 6.3-10.7 [facility] Comment on above: Performed By: #### H S TROP, PTT, CK, BNP, PT, MG, TSH3, CMP, SCAN CBC #### [facility] [address] [place] [address] Platelet morphology finding [Identifier] in BloodOrdered By: Jesse Valdez on 09-17-2024 Platelet morphology finding Nom (Bld) Normal Normal [facility] Platelets [#/volume] in Bloo d by Automated countOrdered By: Jesse Valdez on 09-17-2024 Platelets (Bld) [#/Vol] 143 10*3/uL Low 150-450 [facility] Comment on above: Performed By: #### H S TROP, PTT, CK, BNP, PT, MG, TSH3, CMP, SCAN CBC #### [place] [address] [place] Potassium [Moles/volume] in Serum or PlasmaOrdered By: Jesse Valdez on 09-17-2024 Potassium [Moles/Vol] 3.9 mmol/L Normal 3.5-5.1 [facility] Comment on above: Performed By: #### M G, CBC, BMP #### [facility] [address] [place] [id number] [place] Protein [Mass/volume] in Ser um or PlasmaOrdered By: Jesse Valdez on 09-17-2024 Protein [Mass/Vol] 5.1 g/dL Low 6.4-8.9 [facility] Comment on above: Performed By: #### M G, CBC, BMP #### [facility] [address] [place] [id number] [place] Protein [Mass/volume] in Uri ne by Test stripOrdered By: Jesse Valdez on 09-17-2024 Protein (U) [Mass/Vol] 50 mg/dL High Negative [facility] Comment on above: Order Comment: Name Collection Type:: Clean-Voided Midstream Performed By: #### A DDONUAPLUS #### [place] [id number] [facility] Prothrombin time (PT)Ordered By: Jesse Valdez on 09-17-2024 PT Coag (PPP) [Time] 17.3 s High 9.0-12.9 [facility] Comment on above: A hematocrit value g reater than 55% may lead to inaccurate results in coagulation testing. Patients having hematocrit values >55% require a special collection tube for coagulation studies. Please contact the laboratory at [phone] for redraw instructions. Result Comment: A he matocrit value greater than 55% may lead to inaccurate results in coagulation testing. Patients having hematocrit values >55% require a special collection tube for coagulation studies. Please contact the laboratory at [phone] for redraw instructions. Performed By: #### M G, CBC, BMP #### [facility] [address] [place] [id number] [facility] RBC morphologyOrdered By: Abiodun Valdez on 09-17-2024 RBC morphology finding Nom (Bld) Normal Normal Normal [facility] Comment on above: Performed By: #### H S TROP, PTT, CK, BNP, PT, MG, TSH3, CMP, SCAN CBC #### [address] Scan and CBCon 09-17-2024 Mean Corpuscular HGB Conc 33.3 g/dL Normal 32.0-35.0 [facility] Comment on above: Performed By: #### H S TROP, PTT, CK, BNP, PT, MG, TSH3, CMP, SCAN CBC #### [address] Monocytes/100 WBC (Bld) 29.77 % High 0.00-20.00 [facility] Comment on above: Result Comment: For adults in ED, MDW > 20.0 may be associated with a higher risk of sepsis during the first 12 hrs of hospital admission Performed By: #### H S TROP, PTT, CK, BNP, PT, MG, TSH3, CMP, SCAN CBC #### [address] NRBC% 0.0 /100{WBC} Normal 0-0.5 [facility] Comment on above: Performed By: #### H S TROP, PTT, CK, BNP, PT, MG, TSH3, CMP, SCAN CBC #### [address] Platelet Estimate Normal Normal Normal [facility] Comment on above: Performed By: #### H S TROP, PTT, CK, BNP, PT, MG, TSH3, CMP, SCAN CBC #### [address] Platelet Morphology Normal Normal Normal [facility] Comment on above: Result Comment: PERF ORMED BY: [place] [address] PATHOLOGIST GUEST RELATIONS ASSOCIATE LUIS DEE M.D. Performed By: #### H S TROP, PTT, CK, BNP, PT, MG, TSH3, CMP, SCAN CBC #### [address] Serum globulin measurement b y calculation (mass/volume)Ordered By: Jesse Valdez on 09-17-2024 Globulin (S) [Mass/Vol] 2.4 g/dL Normal [facility] Comment on above: Performed By: #### M G, CBC, BMP #### [address] Serum or plasma albumin/glob ulin mass ratioOrdered By: Jesse Valdez on 09-17-2024 Albumin/Globulin [Mass ratio] 1.1 {ratio} Normal [facility] Comment on above: Performed By: #### M G, CBC, BMP #### [address] Serum or plasma anion gap de terminationOrdered By: Jesse Valdez on 09-17-2024 Anion gap [Moles/Vol] 10.4 mmol/L Normal 6.0-15.0 [facility] Comment on above: Performed By: #### M G, CBC, BMP #### [address] Sodium [Moles/volume] in Ser um or PlasmaOrdered By: Jesse Valdez on 09-17-2024 Sodium [Moles/Vol] 136 mmol/L Normal 136-145 [facility] Comment on above: Performed By: #### M G, CBC, BMP #### [address] Specific gravity Test strip (U) [Rel density]Ordered By: Jesse Valdez on 09-17-2024 Specific gravity (U) [Rel density] 1.023 1.001-1.03 0 [facility] Thyrotropin [Units/volume] i n Serum or PlasmaOrdered By: Jesse Valdez on 09-17-2024 TSH Qn 3.69 m[IU]/L Normal 0.45-5.33 [facility] Comment on above: Result Comment: PERF ORMED BY: [place] [address] PATHOLOGIST GUEST RELATIONS ASSOCIATE LUIS DEE M.D. Performed By: #### M G, CBC, BMP #### [address] Troponin I High Sensitivityo n 09-17-2024 Troponin I High Sensitivity 9.3 pg/mL Normal 0.0-15.0 [facility] Comment on above: Result Comment: PERF ORMED BY: [place] [address] PATHOLOGIST GUEST RELATIONS ASSOCIATE LUIS DEE M.D. Performed By: #### M G, CBC, BMP #### [facility] [address] [place] [address] Troponin I.cardiac [Mass/vol ume] in Serum or Plasma by Detection limit <= 0.01 ng/Ordered By: Jesse Valdez on 09-17-2024 Troponin I.cardiac DL <= 0.01 ng/mL [Mass/Vol] 9.3 pg/mL 0.0-15.0 [facility] URINE CULTURE, ROUTINEon Bacteria identified Cx Nom (U) Urine Culture, Routine [facility] Bacteria identified Cx Nom (U) Mixed urogenital etienne [facility] Bacteria identified Cx Nom (U) Less than 10,000 colonies/mL [facility] Bacteria identified Cx Nom (U) [facility]formed at: - [facility] Bacteria identified Cx Nom (U) [address], [place] [id number] [facility] Bacteria identified Cx Nom (U) Timing Adjuster: Elpidio Delgado PhD, Phone: [phone] [facility] Urea nitrogen [Mass/volume] in Serum or PlasmaOrdered By: Jesse Valdez on 09-17-2024 Urea nitrogen [Mass/Vol] 41 mg/dL High 7-25 [facility] Comment on above: Performed By: #### M G, CBC, BMP #### [facility] [address] [place] [address] Urine appearanceOrdered By: Jesse Valdez on 09-17-2024 Appearance (U) Clear Normal Clear [facility] Comment on above: Order Comment: Name Collection Type:: Clean-Voided Midstream Performed By: #### A DDONUAPLUS #### [facility] [address] [place] [address] Urobilinogen Test strip (U) [Mass/Vol]Ordered By: Jesse Valdez on 09-17-2024 Urobilinogen (U) [Mass/Vol] Normal mg/dL Normal [facility] Venous Blood GasOrdered By: Jesse Valdez on 09-17-2024 CO2 [Moles/Vol] 16.9 mmol/L Low 24.0-29.0 [facility] Comment on above: Performed By: #### V BG #### Point of Care testing , HCO3 (Bld) [Moles/Vol] 15.9 mmol/L Low 23.0-29.0 [facility] Comment on above: Performed By: #### V BG #### Point of Care testing , Venous Blood Gason Respiratory Critical Normal [facility] Comment on above: Result Comment: Crit ical Value called on: 09/17/2024 at 22:50 PERFORMED BY: [facility] [address] [place] [address] PATHOLOGIST GUEST RELATIONS ASSOCIATE LUIS DEE M.D. Performed By: #### V BG #### Point of Care testing , VBG Base Excess -8.6 mmol/L Low -3.0-3.0 [facility] Comment on above: Performed By: #### V BG #### Point of Care testing , VBG Draw Site Venous Normal [facility] Comment on above: Performed By: #### V BG #### Point of Care testing , VBG Frac Inspired O2 21 % Normal [facility] Comment on above: Performed By: #### V BG #### Point of Care testing , VBG Oxygen Saturation 76.2 % High 73.0-76.0 [facility] Comment on above: Performed By: #### V BG #### Point of Care testing , VBG PCO2 30.5 mm[Hg] Low 38.0-50.0 [facility] Comment on above: Performed By: #### V BG #### Point of Care testing , VBG PH Venous PH 7.34 Normal 7.32-7.43 [facility] Comment on above: Performed By: #### V BG #### Point of Care testing , XR chest 2V*on 09-17-2024 XR chest 2V* [facility] Main [facility] [address] [place], [place] [id number] XRay Report Signed Patient: Hailee Trivedi MR#: [id number] : 1940 Acct:[id number] Age/Sex: 84 / F ADM Date: 09/17/24 Loc: ER Room: Type: [facility] ER Attending Dr: Copies to: Jesse Valdez DO Ordering Provider: Jesse Valdez DO Date of Service: 09/17/24 XR/XR chest 2V*: Weakness XR chest 2V* 09/17/2024 8:59 PM SIGNS AND SYMPTOMS: Increasing weakness PROTOCOL: Frontal and lateral radiograph of the chest COMPARISON: 01/08/2020 FINDINGS: The trachea is midline. There is a right-sided [id number] with the tip at the cavoatrial junction. The heart and mediastinal structures are within normal limits. The lung parenchyma is clear. The bony thorax is intact. Degenerative changes are noted in the shoulders. XR/XR chest 2V* IMPRESSION: No acute cardiopulmonary pathology. Chronic findings are noted as above. Impression dictated by: Armando Huynh M.D.09/17/2024 10:43 PM Dictation Location: [place] [address] Transcribed By: [facility] 09/17/242242 Dictated By: Armando Huynh II, MD 09/17/242239 Signed By: 09/17/242242 Normal [facility] pH of Urine by Test stripOrd ered By: Jesse Valdez on 09-17-2024 pH (U) 5.5 [pH] Normal 5.0-9.0 [facility] Comment on above: Order Comment: Name Collection Type:: Clean-Voided Midstream Performed By: #### A DDONUAPLUS #### [place] [id number] [facility] Basophils Auto (Bld) [#/Vol] on 09-14-2024 Basophils (Bld) [#/Vol] 0.0 10 3/uL 0.0-0.1 [facility] Basophils/100 WBC Auto (Bld) on 09-14-2024 Basophils/100 WBC (Bld) 0.1 % Low 0.2-2.0 [facility] Eosinophils/100 WBC Auto (Bl d)on 09-14-2024 Eosinophils/100 WBC (Bld) 0.5 % Low 0.9-7.0 [facility] Erythrocyte distribution wid th Auto (RBC) [Ratio]on 09-14-2024 Erythrocyte distribution width (RBC) [Ratio] 12.8 % 11.0-15.0 [facility] Estimated glomerular filtrat ion rate (GFR) non- Americanon 09-14-2024 GFR/1.73 sq M.predicted among non-blacks MDRD (S/P/Bld) [Vol rate/Area] 16 mL/min/{1.73_m2} Low >=60 mL/min/1.7 3m 2 [facility] Globulin Calc (S) [Mass/Vol] on 09-14-2024 Globulin (S) [Mass/Vol] 3.3 g/dL [facility] Hematocrit Auto (Bld) [Volum e fraction]on 09-14-2024 Hematocrit (Bld) [Volume fraction] 37.5 % 36.0-48.0 [facility] Hemoglobin [Mass/volume] in Bloodon 09-14-2024 Hemoglobin (Bld) [Mass/Vol] 12.7 g/dL 12.0-16.0 [facility] Laboratory - Chemistry and C hemistry - challengeon 09-14-2024 Bilirubin Ql (U) Negative NEGATIVE [facility] Glucose (U) [Mass/Vol] Negative NEGATIVE [facility] Ketones Ql (U) Negative NEGATIVE [facility] pH (U) 6.0 [pH] 5.0-9.0 [facility] Specific gravity (U) [Rel density] 1.020 1.005-1.02 5 [facility] Urobilinogen Qn (U) 0.2 {Marley'U}/dL 0.2-1.0 [facility] Albumin [Mass/Vol] 2.6 g/dL Low 3.4-5.0 [facility] ALP [Catalytic activity/Vol] 84 U/L 46-116 [facility] ALT [Catalytic activity/Vol] 32 U/L 14-59 [facility] AST [Catalytic activity/Vol] 19 U/L 15-37 [facility] Bilirubin [Mass/Vol] 0.3 mg/dL 0.2-1.0 [facility] Calcium [Mass/Vol] 8.2 mg/dL Low 8.5-10.1 [facility] Chloride [Moles/Vol] 111 mmol/L High 98-107 [facility] CO2 [Moles/Vol] 18.4 mmol/L Low 21.0-32.0 [facility] Creatinine [Mass/Vol] 2.86 mg/dL High 0.55-1.02 [facility] GFR/1.73 sq M.predicted MDRD (S/P/Bld) [Vol rate/Area] 19 mL/min/{1.73_m2} Low >=60 mL/min/1.7 3m 2 [facility] Glucose [Mass/Vol] 218 mg/dL High 74-106 [facility] Lipase [Catalytic activity/Vol] 78.0 U/L High 16.0-77.0 [facility] Potassium [Moles/Vol] 3.8 mmol/L 3.5-5.1 [facility] Protein [Mass/Vol] 5.9 g/dL Low 6.4-8.2 [facility] Sodium [Moles/Vol] 142 mmol/L 136-145 [facility] TSH Qn 1.683 m[IU]/L 0.358-3.74 0 [facility] Urea nitrogen [Mass/Vol] 47.0 mg/dL High 7.0-18.0 [facility] Urea nitrogen/Creatinine [Mass ratio] 16.4 mg/mg [facility] Laboratory - Hematology and Cell countson 09-14-2024 Immature granulocytes/100 WBC (Bld) 1.0 % High 0.0-0.5 [facility] - Specimen inform ationon 09-14-2024 Appearance (U) CLEAR CLEAR [facility] Color (U) LT. YELLOW YELLOW [facility] - Urinalysison Leukocyte esterase Test strip Ql (U) MODERATE Abnormal NEGATIVE [facility] Mucus Ql (Urine sed) NONE SEEN NONE SEEN [facility] Nitrite Ql (U) Negative NEGATIVE [facility] Protein Ql (U) TRACE mg/dL NEG/TRACE [facility] Leukocytes [#/volume] correc dominick for nucleated erythrocytes in Blood by Automated counon 09-14-2024 WBC corrected for nucl RBC Auto (Bld) [#/Vol] 15.6 10 3/uL High 4.0-11.0 [facility] Lymphocytes Auto (Bld) [#/Vo l]on 09-14-2024 Lymphocytes (Bld) [#/Vol] 3.0 10 3/uL 1.2-3.8 [facility] Lymphocytes/100 WBC Auto (Bl d)on 09-14-2024 Lymphocytes/100 WBC (Bld) 19.0 % Low 20.5-60.0 [facility] MCH Auto (RBC) [Entitic mass ]on 09-14-2024 MCH (RBC) [Entitic mass] 32.2 pg 26.7-34.0 [facility] MCHC Auto (RBC) [Mass/Vol]on 09-14-2024 MCHC (RBC) [Mass/Vol] 33.9 g/dL 29.9-35.2 [facility] MCV Auto (RBC) [Entitic vol] on 09-14-2024 MCV (RBC) [Entitic vol] 94.9 fL 81.0-99.0 [facility] Monocytes Auto (Bld) [#/Vol] on 09-14-2024 Monocytes (Bld) [#/Vol] 0.8 10 3/uL 0.3-0.8 [facility] Monocytes/100 WBC Auto (Bld) on 09-14-2024 Monocytes/100 WBC (Bld) 5.1 % 1.7-12.0 [facility] Neutrophils Auto (Bld) [#/Vo l]on 09-14-2024 Neutrophils (Bld) [#/Vol] 11.6 10 3/uL High 1.4-6.5 [facility] Neutrophils/100 WBC Auto (Bl d)on 09-14-2024 Neutrophils/100 WBC (Bld) 74.3 % 43.0-75.0 [facility] No Panel Informationon 09-14 Troponin I High Sensitivity 6.9 pg/mL 4.0-51.3 [facility] Comment on above: CUT-OFF POINTS HAVE [...] CLINICAL INFORMATION. Miscellaneous Test Comment See comment [facility] Comment on above: Specimen Source: UCC - Urine,Clean Catch - Urine CC - 200.100 Urine Bacteria TRACE #/HPF Abnormal NONE SEEN [facility] Urine Culture Reflexed YES [facility] Urine Culture Result 1 \R\ Urine Culture , Routine [facility] Urine Microscopic Review YES [facility] Urine Occult Blood TRACE-I NEGATIVE [facility] Urine Other Casts NONE SEEN #/LPF NONE SEEN [facility] Urine Other Crystals None Seen #/HPF None Seen [facility] Urine RBC 2-5 #/HPF Abnormal 0-2 [facility] Urine Squamous Epithelial Cells FEW #/LPF Abnormal NONE/RARE [facility] Urine WBC 5-10 #/HPF Abnormal NONE SEEN [facility] Eosinophils # (Auto) 0.1 10 3/uL 0.0-0.7 [facility] Immature Granulocyte # (Auto) 0.15 10 3/uL High 0.00-0.03 [facility] Platelet mean volume Auto (B ld) [Entitic vol]on 09-14-2024 Platelet mean volume (Bld) [Entitic vol] 11.3 fL 9.5-13.5 [facility] Platelets Auto (Bld) [#/Vol] on 09-14-2024 Platelets (Bld) [#/Vol] 229 10 3/uL 150-450 [facility] RBC Auto (Bld) [#/Vol]on RBC (Bld) [#/Vol] 3.95 10 6/uL Low 4.20-5.40 [facility] Serum or plasma albumin/glob ulin mass ratioon 09-14-2024 Albumin/Globulin [Mass ratio] 0.8 {ratio} [facility] Serum or plasma anion gap de terminationon 09-14-2024 Anion gap [Moles/Vol] 16.4 mmol/L [facility] Alanine aminotransferase [En zymatic activity/volume] in Serum or PlasmaOrdered By: Claire Choi on 08-01-2024 ALT [Catalytic activity/Vol] 10 U/L Normal 7-52 [facility] Comment on above: Performed By: #### C MP, CBC #### [facility] [address] Albumin [Mass/volume] in Ser um or PlasmaOrdered By: Claire Choi on 08-01-2024 Albumin [Mass/Vol] 3.5 g/dL Normal 2.9-4.4 [facility] Comment on above: Performed By: #### M G, CBC, BMP #### [facility] [address] [place] [address] [place] Albumin [Mass/volume] in Ser um or Plasma by Bromocresol green (BCG) dye binding methoOrdered By: Claire hCoi on 08-01-2024 Albumin BCG dye [Mass/Vol] 3.9 g/dL 3.5-5.7 [facility] Alkaline phosphatase [Enzyma tic activity/volume] in Serum or PlasmaOrdered By: Claire Choi on 08-01-2024 ALP [Catalytic activity/Vol] 99 U/L Normal 34-104 [facility] Comment on above: Performed By: #### C MP, CBC #### [facility] [address] [place] [address] [place] Aspartate aminotransferase [ Enzymatic activity/volume] in Serum or PlasmaOrdered By: Claire Choi on 08-01-2024 AST [Catalytic activity/Vol] 14 U/L Normal 13-39 [facility] Comment on above: Performed By: #### C MP, CBC #### [facility] [address] [place] [address] [place] Automated basophil %Ordered By: Claire Choi on 08-01-2024 Basophils/100 WBC (Bld) 0.4 % Normal . [facility] Comment on above: Performed By: #### C MP, CBC #### [address] Automated basophil countOrde red By: Claire Choi on 08-01-2024 Basophils (Bld) [#/Vol] 0.0 10*3/uL Normal 0.0-0.2 [facility] Comment on above: Result Comment: PERF ORMED BY: [place] [address] PATHOLOGIST GUEST RELATIONS ASSOCIATE LUIS DEE M.D. Performed By: #### C MP, CBC #### [address] Automated blood monocyte cou ntOrdered By: Claire Choi on 08-01-2024 Monocytes (Bld) [#/Vol] 0.7 10*3/uL Normal 0.0-0.8 [facility] Comment on above: Performed By: #### C MP, CBC #### [address] Automated eosinophil %Ordere d By: Claire Choi on 08-01-2024 Eosinophils/100 WBC (Bld) 1.2 % Normal . [facility] Comment on above: Performed By: #### C MP, CBC #### [address] Automated eosinophil countOr dered By: Claire Choi on 08-01-2024 Eosinophils (Bld) [#/Vol] 0.1 10*3/uL Normal 0.0-0.45 [facility] Comment on above: Performed By: #### C MP, CBC #### [address] Automated monocyte %Ordered By: Claire Choi on 08-01-2024 Monocytes/100 WBC (Bld) 7.9 % Normal . [facility] Comment on above: Performed By: #### C MP, CBC #### [address] Automated neutrophil %Ordere d By: Claire Choi on 08-01-2024 Neutrophils/100 WBC (Bld) 59.7 % Normal . [facility] Comment on above: Performed By: #### C MP, CBC #### [facility] [address] Bilirubin.total [Mass/volume ] in Serum or PlasmaOrdered By: Claire Choi on 08-01-2024 Bilirubin [Mass/Vol] 0.6 mg/dL Normal 0.3-1.0 [facility] Comment on above: Performed By: #### C MP, CBC #### [address] Calcium [Mass/volume] in Ser um or PlasmaOrdered By: Claire Choi on 08-01-2024 Calcium [Mass/Vol] 8.6 mg/dL Normal 8.6-10.3 [facility] Comment on above: Performed By: #### C MP, CBC #### [address] Carbon dioxide, total [Moles /volume] in Serum or PlasmaOrdered By: Claire Choi on 08-01-2024 CO2 [Moles/Vol] 22.2 mmol/L Normal 21.0-31.0 [facility] Comment on above: Performed By: #### C MP, CBC #### [place] [address] [place] Chloride [Moles/volume] in S amanda or PlasmaOrdered By: Claire Choi on 08-01-2024 Chloride [Moles/Vol] 108 mmol/L High 98-107 [facility] Comment on above: Performed By: #### C MP, CBC #### [address] Complete Blood Count Auto Di ffon 08-01-2024 Mean Corpuscular HGB Conc 33.6 g/dL Normal 32.0-35.0 [facility] Comment on above: Performed By: #### C MP, CBC #### [address] NRBC% 0.1 /100{WBC} Normal 0-0.5 [facility] Comment on above: Performed By: #### C MP, CBC #### [address] Comprehensive Metabolic Pane natalia 08-01-2024 Albumin [Mass/Vol] 3.9 g/dL Normal 3.5-5.7 [facility] Comment on above: Performed By: #### C MP, CBC #### [address] Creatinine Clr Calc Pharmacy 16.51 Normal [facility] Comment on above: Result Comment: PERF ORMED BY: [place] [address] PATHOLOGIST GUEST RELATIONS ASSOCIATE LUIS DEE M.D. Performed By: #### C MP, CBC #### [address] GFR/1.73 sq M.predicted MDRD (S/P/Bld) [Vol rate/Area] 15.173 mL/min/{1.73_m2} Normal [facility] Comment on above: Performed By: #### C MP, CBC #### [address] Creatinine [Mass/volume] in Serum or PlasmaOrdered By: Claire Choi on 08-01-2024 Creatinine [Mass/Vol] 2.98 mg/dL High 0.60-1.20 [facility] Comment on above: Performed By: #### C MP, CBC #### [address] Erythrocyte distribution wid th [Ratio] by Automated countOrdered By: Claire Choi on 08-01-2024 Erythrocyte distribution width (RBC) [Ratio] 13.7 % Normal 11.9-15.3 [facility] Comment on above: Performed By: #### C MP, CBC #### [address] Erythrocytes [#/volume] in B lood by Automated countOrdered By: Claire Choi on 08-01-2024 RBC (Bld) [#/Vol] 3.93 10*6/uL Normal 3.60-5.00 [facility] Comment on above: Performed By: #### C MP, CBC #### [place] [address] [place] Free K+L LT Chains, Qn, Son 08-01-2024 Free [place] Light Chains, S 47.2 mg/L High 3.3-19.4 [facility] Comment on above: Performed By: #### M G, CBC, BMP #### [address] Free Lambda Light Chains, S 28.6 mg/L High 5.7-26.3 [facility] Comment on above: Performed By: #### M G, CBC, BMP #### [address] [place]/Lambda Ratio, S 1.65 Normal 0.26-1.65 [facility] Comment on above: Result Comment: Perf ormed at: - [facility] [place] [id number] Timing Adjuster: Elpidio Delgado PhD, Phone: [phone] PERFORMED BY: [place] [address] PATHOLOGIST GUEST RELATIONS ASSOCIATE LUIS DEE M.D. Performed By: #### M G, CBC, BMP #### [place] [address] [place] Glucose [Mass/volume] in Ser um or PlasmaOrdered By: Claire Choi on 08-01-2024 Glucose [Mass/Vol] 102 mg/dL High 70-100 [facility] Comment on above: ADA recommended refe rence rangeRandom Glucose Reference Range is dependent on time and content of last meal. Glucose of more than 200 mg/dL in a nonstressed, ambulatory subject supports the diagnosis of Diabetes Mellitus. Result Comment: [place] Glucose Reference Range is dependent on time and content of last meal. Glucose of more than 200 mg/dL in a nonstressed, ambulatory subject supports the diagnosis of Diabetes Mellitus. ADA recommended reference range Performed By: #### C MP, CBC #### [facility] [address] [place] [id number] [facility] Hematocrit [Volume Fraction] of Blood by Automated countOrdered By: Claire Choi on 08-01-2024 Hematocrit (Bld) [Volume fraction] 37.9 % Normal 34.0-46.4 [facility] Comment on above: Performed By: #### C MP, CBC #### [facility] [address] [place] [address] [place] Hemoglobin [Mass/volume] in BloodOrdered By: Claire Choi on 08-01-2024 Hemoglobin (Bld) [Mass/Vol] 12.7 g/dL Normal 11.8-15.4 [facility] Comment on above: Performed By: #### C MP, CBC #### [facility] [address] [place] [address] [place] IgA [Mass/volume] in Serum o r PlasmaOrdered By: Claire Choi on 08-01-2024 IgA [Mass/Vol] 241 mg/dL 64-422 [facility] IgE [Units/volume] in Serum or PlasmaOrdered By: Claire Choi on 08-01-2024 IgE Qn 13 [IU]/mL 6-495 [facility] Comment on above: Performed at: [employer] [address] [id number] Director: Britton Valente MD, Phone: [phone] IgG [Mass/volume] in Serum o r PlasmaOrdered By: Claire Choi on 08-01-2024 IgG [Mass/Vol] 1009 mg/dL [phone] [facility] IgM [Mass/volume] in Serum o r PlasmaOrdered By: Claire Choi on 08-01-2024 IgM [Mass/Vol] 144 mg/dL 26-217 [facility] Comment on above: Performed at: [facility] [address] [id number] Director: Elpidio Delgado PhD, Phone: [phone] Immunofixation,Serumon 08-01 Immunofixation, Serum Comment Normal . [facility] Comment on above: Result Comment: No m onoclonality detected. Performed By: #### M G, CBC, BMP #### [facility] [address] [place], [place] [address] [place] Immunoglobulin A, Serum 241 mg/dL Normal 64-422 [facility] Comment on above: Performed By: #### M G, CBC, BMP #### [facility] [address] [place] [address] [place] Immunoglobulin G 1009 mg/dL Normal [phone] [facility] Comment on above: Performed By: #### M G, CBC, BMP #### [facility] [address] [place] [address] [place] Immunoglobulin M, Serum 144 mg/dL Normal 26-217 [facility] Comment on above: Result Comment: Perf ormed at: CB - [facility] [place] [id number] [place] [id number] Timing Adjuster: Elpidio Delgado PhD, Phone: [phone] Performed By: #### M G, CBC, BMP #### [facility] [address] [place] [id number] [facility] Immunoglobulin light chains. kappa.free [Mass/volume] in SerumOrdered By: Claire Choi on 08-01-2024 Immunoglobulin light chains.kappa.free (S) [Mass/Vol] 47.2 mg/L High 3.3-19.4 [facility] Immunoglobulin light chains. kappa.free/Immunoglobulin light chains.lambda.free [MassOrdered By: Claire Choi on 08-01-2024 Immunoglobulin light chains.kappa.free/Immuno globulin light chains.lambda.free (S) [Mass ratio] 1.65 0.26-1.65 [facility] Comment on above: Performed at: CB - [facility] [id number] [place] [id number] Director: Elpidio Delgado PhD, Phone: [phone] Immunoglobulin light chains. lambda.free [Mass/volume] in Serum or PlasmaOrdered By: Claire Choi on 08-01-2024 Immunoglobulin light chains.lambda.free [Mass/Vol] 28.6 mg/L High 5.7-26.3 [facility] Immunoglobulins A/E/G/M, Qno n 08-01-2024 Immunoglobulin E 13 Normal 6-495 [facility] Comment on above: Result Comment: Perf ormed at: BN - [facility] [address] [id number] Timing Adjuster: Britton Valente MD, Phone: [phone] Performed By: #### M G, CBC, BMP #### [address] Leukocytes [#/volume] correc dominick for nucleated erythrocytes in Blood by Automated counOrdered By: Claire Choi on 08-01-2024 WBC corrected for nucl RBC Auto (Bld) [#/Vol] 9.0 10*3/uL 3.8-11.6 [facility] Leukocytes [#/volume] in Blo od by Automated countOrdered By: Claire Choi on 08-01-2024 WBC (Bld) [#/Vol] 9.0 10*3/uL Normal 3.8-11.6 [facility] Comment on above: Performed By: #### C MP, CBC #### [facility] [address] [place] [address] [place] Lymphocytes [#/volume] in Bl ood by Automated countOrdered By: Claire Choi on 08-01-2024 Lymphocytes (Bld) [#/Vol] 2.8 10*3/uL Normal 1.00-4.8 [facility] Comment on above: Performed By: #### C MP, CBC #### [facility] [address] [place] [address] [place] Lymphocytes/100 leukocytes i n Blood by Automated countOrdered By: Claire Choi on 08-01-2024 Lymphocytes/100 WBC (Bld) 30.8 % Normal . [facility] Comment on above: Performed By: #### C MP, CBC #### [facility] [address] MCH [Entitic mass] by Automa dominick countOrdered By: Claire Choi on 08-01-2024 MCH (RBC) [Entitic mass] 32.5 pg Normal 24.7-34.3 [facility] Comment on above: Performed By: #### C MP, CBC #### [address] MCHC Auto (RBC) [Mass/Vol]Or dered By: Claire Choi on 08-01-2024 MCHC (RBC) [Mass/Vol] 33.6 g/dL 32.0-35.0 [facility] MCV [Entitic volume] by Auto mated countOrdered By: Claire Choi on 08-01-2024 MCV (RBC) [Entitic vol] 96.6 fL Normal 80-100 [facility] Comment on above: Performed By: #### C MP, CBC #### [address] Neutrophils [#/volume] in Bl ood by Automated countOrdered By: Claire Choi on 08-01-2024 Neutrophils (Bld) [#/Vol] 5.4 10*3/uL Normal 1.8-7.7 [facility] Comment on above: Performed By: #### C MP, CBC #### [address] No Panel InformationOrdered By: Claire Choi on 08-01-2024 Estimated GFR (CKD-EPI) 15.173 mL/Min [facility] Creatinine Clearance (Chem 16.51 [facility] Protein Electrophoresis M-Krystian Not observed g/dL Not Observed [facility] Protein Electrophoresis Note Comment . [facility] Comment on above: Protein electrophore sis scan will follow via computer,mail, or media assistant delivery. Serum Immunofixation Comment . [facility] Comment on above: No monoclonality det ected. Nucleated erythrocytes [Pres ence] in Blood by Automated countOrdered By: Claire Choi on 08-01-2024 Nucleated RBC Auto Ql (Bld) 0.1 /100{WBC} 0-0.5 [facility] Platelet mean volume [Entiti c volume] in Blood by Automated countOrdered By: Claire Choi on 08-01-2024 Platelet mean volume (Bld) [Entitic vol] 9.8 fL Normal 6.3-10.7 [facility] Comment on above: Performed By: #### C MP, CBC #### [place] [address] [place] Platelets [#/volume] in Bloo d by Automated countOrdered By: Claire Choi on 08-01-2024 Platelets (Bld) [#/Vol] 209 10*3/uL Normal 150-450 [facility] Comment on above: Performed By: #### C MP, CBC #### [address] Potassium [Moles/volume] in Serum or PlasmaOrdered By: Claire Choi on 08-01-2024 Potassium [Moles/Vol] 4.9 mmol/L Normal 3.5-5.1 [facility] Comment on above: Performed By: #### C MP, CBC #### [place] [address] [place] Protein Electrophoresis, Ser umon 08-01-2024 [id number]-2-Xcdramfu 0.1 g/dL Normal 0.0-0.4 [facility] Comment on above: Performed By: #### M G, CBC, BMP #### [place] [address] [place] Pndqc-8-Zdtpgigy 0.9 g/dL Normal 0.4-1.0 [facility] Comment on above: Performed By: #### M G, CBC, BMP #### [address] Beta Globulin 0.9 g/dL Normal 0.7-1.3 [facility] Comment on above: Performed By: #### M G, CBC, BMP #### [address] Gamma Globulin 1.0 g/dL Normal 0.4-1.8 [facility] Comment on above: Performed By: #### M G, CBC, BMP #### [address] M-Krystian Not Observed Normal Not Observed [facility] Comment on above: Performed By: #### M G, CBC, BMP #### [address] SPE-Note Comment Normal . [facility] Comment on above: Result Comment: Prot ein electrophoresis scan will follow via computer, mail, or media assistant delivery. Performed By: #### M G, CBC, BMP #### [address] Protein [Mass/volume] in Ser um or PlasmaOrdered By: Claire Choi on 08-01-2024 Protein [Mass/Vol] 6.8 g/dL Normal 6.4-8.9 [facility] Comment on above: Performed By: #### C MP, CBC #### [address] Protein [Mass/Vol] 6.5 g/dL Normal 6.0-8.5 [facility] Comment on above: Performed By: #### M Dalia, CBC, BMP #### [address] Serum globulin measurement ( mass/volume)Ordered By: Claire Choi on 08-01-2024 Globulin (S) [Mass/Vol] 3.0 g/dL Normal 2.2-3.9 [facility] Comment on above: Performed By: #### M G, CBC, BMP #### [address] Serum globulin measurement b y calculation (mass/volume)Ordered By: Claire Choi on 08-01-2024 Globulin (S) [Mass/Vol] 2.9 g/dL Normal [facility] Comment on above: Performed By: #### C MP, CBC #### [address] Serum or plasma albumin/glob ulin mass ratioOrdered By: Claire Choi on 08-01-2024 Albumin/Globulin [Mass ratio] 1.3 {ratio} Normal [facility] Comment on above: Performed By: #### C MP, CBC #### [address] Albumin/Globulin [Mass ratio] 1.2 {ratio} Normal 0.7-1.7 [facility] Comment on above: Performed By: #### M G, CBC, BMP #### [address] Serum or plasma alpha 1 glob ulin measurement by electrophoresis (mass/volume)Ordered By: Claire Choi on 08-01-2024 Alpha 1 globulin Elph [Mass/Vol] 0.1 g/dL 0.0-0.4 [facility] Serum or plasma alpha 2 glob ulin measurement by electrophoresis (mass/volume)Ordered By: Claire Choi on 08-01-2024 Alpha 2 globulin Elph [Mass/Vol] 0.9 g/dL 0.4-1.0 [facility] Serum or plasma anion gap de terminationOrdered By: Claire Choi on 08-01-2024 Anion gap [Moles/Vol] 12.7 mmol/L Normal 6.0-15.0 [facility] Comment on above: Performed By: #### C MP, CBC #### [address] Serum or plasma beta globuli n measurement by electrophoresis (mass/volume)Ordered By: Claire Choi on 08-01-2024 Beta globulin Elph [Mass/Vol] 0.9 g/dL 0.7-1.3 [facility] Serum or plasma gamma globul in measurement by electrophoresis (mass/volume)Ordered By: Claire Choi on 08-01-2024 Gamma globulin Elph [Mass/Vol] 1.0 g/dL 0.4-1.8 [facility] Sodium [Moles/volume] in Ser um or PlasmaOrdered By: Claire Choi on 08-01-2024 Sodium [Moles/Vol] 138 mmol/L Normal 136-145 [facility] Comment on above: Performed By: #### C MP, CBC #### [facility] [address] Urea nitrogen [Mass/volume] in Serum or PlasmaOrdered By: Claire Choi on 08-01-2024 Urea nitrogen [Mass/Vol] 40 mg/dL High 7-25 [facility] Comment on above: Performed By: #### C MP, CBC #### [facility] [address] Erythrocyte distribution wid th Auto (RBC) [Ratio]on 06-27-2024 Erythrocyte distribution width (RBC) [Ratio] 12.6 % 11.0-15.0 [facility] Estimated glomerular filtrat ion rate (GFR) non- Americanon 06-27-2024 GFR/1.73 sq M.predicted among non-blacks MDRD (S/P/Bld) [Vol rate/Area] 17 mL/min/{1.73_m2} Low >=60 [facility] Hematocrit Auto (Bld) [Volum e fraction]on 06-27-2024 Hematocrit (Bld) [Volume fraction] 40.7 % 36.0-48.0 [facility] Hemoglobin [Mass/volume] in Bloodon 06-27-2024 Hemoglobin (Bld) [Mass/Vol] 13.2 g/dL 12.0-16.0 [facility] - Chemistry and C hemistry - challengeon 06-27-2024 Bilirubin Ql (U) Negative NEGATIVE [facility] Glucose (U) [Mass/Vol] Negative NEGATIVE [facility] Ketones Ql (U) Negative NEGATIVE [facility] pH (U) 6.0 [pH] 5.0-9.0 [facility] Specific gravity (U) [Rel density] 1.020 1.005-1.02 5 [facility] Urobilinogen Qn (U) 0.2 {Malrey'U}/dL 0.2-1.0 [facility] Albumin [Mass/Vol] 3.2 g/dL Low 3.4-5.0 [facility] Calcium [Mass/Vol] 8.6 mg/dL 8.5-10.1 [facility] Chloride [Moles/Vol] 103 mmol/L 98-107 [facility] CO2 [Moles/Vol] 26.2 mmol/L 21.0-32.0 [facility] Creatinine [Mass/Vol] 2.67 mg/dL High 0.55-1.02 [facility] GFR/1.73 sq M.predicted MDRD (S/P/Bld) [Vol rate/Area] 21 mL/min/{1.73_m2} Low >=60 [facility] Glucose [Mass/Vol] 139 mg/dL High 74-106 [facility] Magnesium [Mass/Vol] 2.0 mg/dL 1.8-2.4 [facility] Potassium [Moles/Vol] 5.2 mmol/L High 3.5-5.1 [facility] Sodium [Moles/Vol] 136 mmol/L 136-145 [facility] Urate [Mass/Vol] 6.4 mg/dL High 2.6-6.0 [facility] Urea nitrogen [Mass/Vol] 38.0 mg/dL High 7.0-18.0 [facility] Urea nitrogen/Creatinine [Mass ratio] 14.2 mg/mg [facility] - Specimen inform ationon 06-27-2024 Appearance (U) CLEAR CLEAR [facility] Color (U) YELLOW YELLOW [facility] - Urinalysison Leukocyte esterase Test strip Ql (U) MODERATE Abnormal NEGATIVE [facility] Mucus Ql (Urine sed) TRACE Abnormal NONE SEEN [facility] Nitrite Ql (U) Negative NEGATIVE [facility] Protein (U) [Mass/Vol] 85.7 mg/dL High <=11.9 [facility]l (U) 30 mg/dL Abnormal NEG/TRACE [facility] Leukocytes [#/volume] correc dominick for nucleated erythrocytes in Blood by Automated counon 06-27-2024 WBC corrected for nucl RBC Auto (Bld) [#/Vol] 7.9 10 3/uL 4.0-11.0 [facility] MCH Auto (RBC) [Entitic mass ]on 06-27-2024 MCH (RBC) [Entitic mass] 31.6 pg 26.7-34.0 [facility] MCHC Auto (RBC) [Mass/Vol]on 06-27-2024 MCHC (RBC) [Mass/Vol] 32.4 g/dL 29.9-35.2 [facility] MCV Auto (RBC) [Entitic vol] on 06-27-2024 MCV (RBC) [Entitic vol] 97.4 fL 81.0-99.0 [facility] No Panel Informationon 06-27 Urine Bacteria MODERATE #/HPF Abnormal NONE SEEN [facility] Urine Culture Reflexed YES [facility] Urine Occult Blood TRACE-I NEGATIVE [facility] Urine Other Casts NONE SEEN #/LPF NONE SEEN [facility] Urine Other Crystals None Seen #/HPF None Seen [facility] Urine Random Creatinine 190.05 mg/dL 20.0 0-300. 00 [facility] Urine RBC NONE SEEN #/HPF 0-2 [facility] Urine Squamous Epithelial Cells FEW #/LPF Abnormal NONE/RARE [facility] Urine Transitional Epithelial Cells RARE #/LPF Abnormal NONE SEEN [facility] Urine WBC 10-20 #/HPF Abnormal NONE SEEN [facility] 25-Hydroxy Vitamin D Total 43.9 ng/mL [facility] Comment on above: <20 ng/mL Vit D defi cient20-<30 ng/mL Vit D mdvmzjlesnqp78-479 ng/mL Vit D sufficient>100 ng/mL Potential Toxicity Parathyroid Hormone (Intact) 105 pg/mL Abnormal 15-65 [facility] Comment on above: Performed at: - [facility] [address] [id number] Director: Elpidio Delgado PhD, Phone: [phone] Phosphorus Level 3.9 mg/dL 2.6-4.7 [facility] Platelet mean volume Auto (B ld) [Entitic vol]on 06-27-2024 Platelet mean volume (Bld) [Entitic vol] 12.1 fL 9.5-13.5 [facility] Platelets Auto (Bld) [#/Vol] on 06-27-2024 Platelets (Bld) [#/Vol] 188 10 3/uL 150-450 [facility] RBC Auto (Bld) [#/Vol]on RBC (Bld) [#/Vol] 4.18 10 6/uL Low 4.20-5.40 [facility] Serum or plasma anion gap de terminationon 06-27-2024 Anion gap [Moles/Vol] 12.0 mmol/L Fi [facility] Urine protein/creatinine rat ioon 06-27-2024 Protein/Creatinine (U) [Ratio] 0.45 [facility] Cholesterol in LDL Calc [Mas s/Vol]on 05-23-2024 Cholesterol in LDL [Mass/Vol] 68.6 mg/dL [facility] Comment on above: <100 mg/dl [id number] 0-129 mg/dl NEAR OR ABOVE [id number] mg/dl BORDERLINE [id number] mg/dl HIGH>190 mg/dl VERY HIGH Cholesterol in VLDL Calc [Ma ss/Vol]on 05-23-2024 Cholesterol in VLDL [Mass/Vol] 28.4 mg/dL [facility] Estimated glomerular filtrat ion rate (GFR) non- Americanon 05-23-2024 GFR/1.73 sq M.predicted among non-blacks MDRD (S/P/Bld) [Vol rate/Area] 17 mL/min/{1.73_m2} Low >=60 [facility] - Chemistry and C hemistry - challengeon 05-23-2024 Albumin [Mass/Vol] 3.2 g/dL Low 3.4-5.0 [facility] Calcium [Mass/Vol] 8.7 mg/dL 8.5-10.1 [facility] Chloride [Moles/Vol] 104 mmol/L 98-107 [facility] Cholesterol [Mass/Vol] 154 mg/dL <=200 [facility] Cholesterol in HDL [Mass/Vol] 57 mg/dL 40-60 [facility] Comment on above: > or =60 mg/dl - LOW CARDIOVASCULAR RISK<40 mg/dl - HIGH CARDIOVASCULAR RISK CO2 [Moles/Vol] 26.2 mmol/L 21.0-32.0 [facility] Creatinine [Mass/Vol] 2.71 mg/dL High 0.55-1.02 [facility] GFR/1.73 sq M.predicted MDRD (S/P/Bld) [Vol rate/Area] 20 mL/min/{1.73_m2} Low >=60 [facility] Glucose [Mass/Vol] 147 mg/dL High 74-106 [facility] Potassium [Moles/Vol] 4.9 mmol/L 3.5-5.1 [facility] Sodium [Moles/Vol] 140 mmol/L 136-145 [facility] Triglyceride [Mass/Vol] 142 mg/dL <=150 [facility] Urea nitrogen [Mass/Vol] 31.0 mg/dL High 7.0-18.0 [facility] Urea nitrogen/Creatinine [Mass ratio] 11.4 mg/mg [facility] Microalbumin [Mass/volume] i n Urineon 05-23-2024 Albumin DL <= 20 mg/L (U) [Mass/Vol] 24.5 mg/dL <=30.0 [facility] No Panel Informationon 05-23 25-Hydroxy Vitamin D Total 46.7 ng/mL [facility] Comment on above: <20 ng/mL Vit D defi cient20-<30 ng/mL Vit D [id number] ng/mL Vit D sufficient>100 ng/mL Potential Toxicity C-Peptide 3.7 ng/mL 1.1-4.4 [facility] Comment on above: C-Peptide reference interval is for fasting patients.Performed at: - [facility] [id number] Director: Elpidio Delgado PhD, Phone: [phone] Phosphorus Level 4.1 mg/dL 2.6-4.7 [facility] Urine Random Creatinine 233.38 mg/dL 20.0 0-300. 00 [facility] Serum or plasma anion gap de terminationon 05-23-2024 Anion gap [Moles/Vol] 14.7 mmol/L [facility] Serum or plasma total choles terol/high density lipoprotein (HDL) cholesterol mass wilfred 05-23-2024 Cholesterol.total/Choles terol in HDL [Mass ratio] 2.7 {ratio} [facility] Comment on above: 3.3 - 4.4 LOW RISK4. 4 - 7.1 AVERAGE RISK7.1 - 11.0 MODERATE RISK>11.0 H[facility]ISK Urine microalbumin/creatinin e mass ratioon 05-23-2024 Albumin/Creatinine DL <= 20 mg/L (U) [Mass ratio] 104.9 mg/g High 0.0-29.9 [facility] Comment on above: NO MICROALBUMINURIA 0-29 MG/GCLINICAL MICROALBUMINURIA 30-300 MG/GMACROALBUMINURIA >300 MG/G Alanine aminotransferase [En zymatic activity/volume] in Serum or PlasmaOrdered By: Misti Connolly on 04-25-2024 ALT [Catalytic activity/Vol] 12 U/L Normal 7-52 [facility] Comment on above: Performed By: #### M Dalia, CBC, BMP #### [facility] [address] [place] [address] [place] Albumin [Mass/volume] in Ser um or PlasmaOrdered By: Misti Connolly on 04-25-2024 Albumin [Mass/Vol] 3.4 g/dL Normal 2.9-4.4 [facility] Comment on above: Performed By: #### Marie Gómez, CBC, BMP #### [facility] [address] [place] [address] [place] Albumin [Mass/volume] in Ser um or Plasma by Bromocresol green (BCG) dye binding methoOrdered By: Misti Connolly on 04-25-2024 Albumin BCG dye [Mass/Vol] 3.6 g/dL 3.5-5.7 [facility] Alkaline phosphatase [Enzyma tic activity/volume] in Serum or PlasmaOrdered By: Misti Connolly on 04-25-2024 ALP [Catalytic activity/Vol] 106 U/L High 34-104 [facility] Comment on above: Performed By: #### M G, CBC, BMP #### [facility] [address] [place] [address] [place] Aspartate aminotransferase [ Enzymatic activity/volume] in Serum or PlasmaOrdered By: Misti Jeanboske on 04-25-2024 AST [Catalytic activity/Vol] 15 U/L Normal 13-39 [facility] Comment on above: Performed By: #### M G, CBC, BMP #### [address] Automated basophil %Ordered By: Misti Mohsen on 04-25-2024 Basophils/100 WBC (Bld) 0.6 % Normal . [facility] Comment on above: Performed By: #### M G, CBC, BMP #### [address] Automated basophil countOrde red By: Misti Mohsen on 04-25-2024 Basophils (Bld) [#/Vol] 0.0 10*3/uL Normal 0.0-0.2 [facility] Comment on above: Result Comment: PERF ORMED BY: [place] [address] PATHOLOGIST G[employer] RELATIONS ASSOCIATE LUIS DEE M.D. Performed By: #### M G, CBC, BMP #### [address] Automated blood monocyte cou ntOrdered By: Misti Mohsen on 04-25-2024 Monocytes (Bld) [#/Vol] 0.5 10*3/uL Normal 0.0-0.8 [facility] Comment on above: Performed By: #### M G, CBC, BMP #### [address] Automated eosinophil %Ordere d By: Misti Mohsen on 04-25-2024 Eosinophils/100 WBC (Bld) 1.4 % Normal . [facility] Comment on above: Performed By: #### M G, CBC, BMP #### [address] Automated eosinophil countOr dered By: Misti Mohsen on 04-25-2024 Eosinophils (Bld) [#/Vol] 0.1 10*3/uL Normal 0.0-0.45 [facility] Comment on above: Performed By: #### M G, CBC, BMP #### [facility] [address] Automated monocyte %Ordered By: Misti Jeanpamela on 04-25-2024 Monocytes/100 WBC (Bld) 6.3 % Normal . [facility] Comment on above: Performed By: #### M G, CBC, BMP #### [facility] [address] Automated neutrophil %Ordere d By: Misti Mohsen on 04-25-2024 Neutrophils/100 WBC (Bld) 60.7 % Normal . [facility] Comment on above: Performed By: #### M G, CBC, BMP #### [facility] [address] Bilirubin.total [Mass/volume ] in Serum or PlasmaOrdered By: Misti Mohsen on 04-25-2024 Bilirubin [Mass/Vol] 0.3 mg/dL Normal 0.3-1.0 [facility] Comment on above: Performed By: #### M G, CBC, BMP #### [facility] [address] [place] [address] [place] Calcium [Mass/volume] in Ser um or PlasmaOrdered By: Misti Mohsen on 04-25-2024 Calcium [Mass/Vol] 8.6 mg/dL Normal 8.6-10.3 [facility] Comment on above: Performed By: #### M G, CBC, BMP #### [facility] [address] [place] [address] [place] Carbon dioxide, total [Moles /volume] in Serum or PlasmaOrdered By: Misti Mohsen on 04-25-2024 CO2 [Moles/Vol] 20.5 mmol/L Low 21.0-31.0 [facility] Comment on above: Performed By: #### M G, CBC, BMP #### [facility] [address] [place] [address] [place] Chloride [Moles/volume] in S amanda or PlasmaOrdered By: Misti Mohsen on 04-25-2024 Chloride [Moles/Vol] 108 mmol/L High 98-107 [facility] Comment on above: Performed By: #### M G, CBC, BMP #### [address] Complete Blood Count Auto Di ffon 04-25-2024 Mean Corpuscular HGB Conc 33.3 g/dL Normal 32.0-35.0 [facility] Comment on above: Performed By: #### M G, CBC, BMP #### [facility] [address] [place] [address] NRBC% 0.1 /100{WBC} Normal 0-0.5 [facility] Comment on above: Performed By: #### M G, CBC, BMP #### [address] Comprehensive Metabolic Pane natalia 04-25-2024 Albumin [Mass/Vol] 3.6 g/dL Normal 3.5-5.7 [facility] Comment on above: Performed By: #### M G, CBC, BMP #### [address] Creatinine Clr Calc Pharmacy 20.35 Normal [facility] Comment on above: Result Comment: PERF ORMED BY: [place] [address] PATHOLOGIST GUE[employer] RELATIONS ASSOCIATE LUIS DEE M.D. Performed By: #### M G, CBC, BMP #### [address] GFR/1.73 sq M.predicted MDRD (S/P/Bld) [Vol rate/Area] 19.217 mL/min/{1.73_m2} Normal [facility] Comment on above: Performed By: #### M G, CBC, BMP #### [address] Creatinine [Mass/volume] in Serum or PlasmaOrdered By: Misti Connolly on 04-25-2024 Creatinine [Mass/Vol] 2.46 mg/dL High 0.60-1.20 [facility] Comment on above: Performed By: #### M G, CBC, BMP #### [place] [address] [place] Erythrocyte distribution wid th [Ratio] by Automated countOrdered By: Misti Connolly on 04-25-2024 Erythrocyte distribution width (RBC) [Ratio] 14.0 % Normal 11.9-15.3 [facility] Comment on above: Performed By: #### M G, CBC, BMP #### [place] [address] [place] Erythrocytes [#/volume] in B lood by Automated countOrdered By: Misti Connolly on 04-25-2024 RBC (Bld) [#/Vol] 3.86 10*6/uL Normal 3.60-5.00 [facility] Comment on above: Performed By: #### M G, CBC, BMP #### [address] Free K+L LT Chains, Qn, Son 04-25-2024 Free [place] Light Chains, S 48.0 mg/L High 3.3-19.4 [facility] Comment on above: Performed By: #### M G, CBC, BMP #### [address] Free Lambda Light Chains, S 30.4 mg/L High 5.7-26.3 [facility] Comment on above: Performed By: #### M G, CBC, BMP #### [address] [place]/Lambda Ratio, S 1.58 Normal 0.26-1.65 [facility] Comment on above: Result Comment: Perf ormed at: CB - [facility] [address] [id number] Timing Adjuster: Elpidio Delgado PhD, Phone: [phone] PERFORMED BY: [place] [address] PATHOLOGIST GUE[employer] RELATIONS ASSOCIATE LUIS DEE M.D. Performed By: #### M G, CBC, BMP #### [address] Glucose [Mass/volume] in Ser um or PlasmaOrdered By: Misti Jeanpamela on 04-25-2024 Glucose [Mass/Vol] 242 mg/dL High 70-100 [facility] Comment on above: ADA recommended refe rence rangeRandom Glucose Reference Range is dependent on time and content of last meal. Glucose of more than 200 mg/dL in a nonstressed, ambulatory subject supports the diagnosis of Diabetes Mellitus. Result Comment: [place] om Glucose Reference Range is dependent on time and content of last meal. Glucose of more than 200 mg/dL in a nonstressed, ambulatory subject supports the diagnosis of Diabetes Mellitus. ADA recommended reference range Performed By: #### M G, CBC, BMP #### [facility] [address] [place] [id number] [facility] Hematocrit [Volume Fraction] of Blood by Automated countOrdered By: Misti Jeanpamela on 04-25-2024 Hematocrit (Bld) [Volume fraction] 37.2 % Normal 34.0-46.4 [facility] Comment on above: Performed By: #### M G, CBC, BMP #### [facility] [address] [place] [address] [place] Hemoglobin [Mass/volume] in BloodOrdered By: Misti Mohsen on 04-25-2024 Hemoglobin (Bld) [Mass/Vol] 12.4 g/dL Normal 11.8-15.4 [facility] Comment on above: Performed By: #### M G, CBC, BMP #### [facility] [address] [id number] [place] IgA [Mass/volume] in Serum o r PlasmaOrdered By: Claire Choi on 04-25-2024 IgA [Mass/Vol] 214 mg/dL 64-422 [facility] IgG [Mass/volume] in Serum o r PlasmaOrdered By: Claire Choi on 04-25-2024 IgG [Mass/Vol] 906 mg/dL [phone] [facility] IgM [Mass/volume] in Serum o r PlasmaOrdered By: Claire Choi on 04-25-2024 IgM [Mass/Vol] 165 mg/dL 26-217 [facility] Comment on above: Performed at: [facility] [address] [place], [place] [id number] Director: Elpidio Delgado PhD, Phone: [phone] Immunofixation,Serumon 04-25 Immunofixation, Serum Normal . [facility] Comment on above: Result Comment: No m onoclonality detected. Performed By: #### M G, CBC, BMP #### [facility] [address] [place] [address] [facility] Immunoglobulin A, Serum 222 mg/dL Normal 64-422 [facility] Comment on above: Performed By: #### M G, CBC, BMP #### [facility] [address] [place] [address] [place] Immunoglobulin G 892 mg/dL Normal 586-1602 [facility] Comment on above: Performed By: #### M G, CBC, BMP #### [facility] [address] [place] [address] [place] Immunoglobulin M, Serum 161 mg/dL Normal 26-217 [facility] Comment on above: Result Comment: Perf ormed at: [employer] [facility] [address] [id number] Timing Adjuster: Elpdiio Delgado PhD, Phone: [phone] Performed By: #### M G, CBC, BMP #### [facility] [address] [id number] [facility] Immunoglobulin light chains. kappa.free [Mass/volume] in SerumOrdered By: Misti Connolly on 04-25-2024 Immunoglobulin light chains.kappa.free (S) [Mass/Vol] 48.0 mg/L High 3.3-19.4 [facility] Immunoglobulin light chains. kappa.free/Immunoglobulin light chains.lambda.free [MassOrdered By: iMsti Connolly on 04-25-2024 Immunoglobulin light chains.kappa.free/Immuno globulin light chains.lambda.free (S) [Mass ratio] 1.58 0.26-1.65 [facility] Comment on above: Performed at: [facility] [address] [id number] Director: Elpidio Delgado PhD, Phone: [phone] Immunoglobulin light chains. lambda.free [Mass/volume] in Serum or PlasmaOrdered By: Misti Connolly on 04-25-2024 Immunoglobulin light chains.lambda.free [Mass/Vol] 30.4 mg/L High 5.7-26.3 [facility] Immunoglobulins A/G/M, Qn, S debby 04-25-2024 Immunoglobulin A, Serum 214 mg/dL Normal 64-422 [facility] Comment on above: Performed By: #### I MM HECTOR #### [facility] , Immunoglobulin G 906 mg/dL Normal 586-1602 [facility] Comment on above: Performed By: #### I MM HECTOR #### [facility] , Immunoglobulin M, Serum 165 mg/dL Normal 26-217 [facility] Comment on above: Result Comment: Perf ormed at: - [facility] [place] [id number] Timing Adjuster: Elpidio Delgado PhD, Phone: [phone] PERFORMED BY: [place] [address] PATHOLOGIST GUEST RELATIONS ASSOCIATE LUIS DEE M.D. Performed By: #### I MM HECTOR #### [facility] , Leukocytes [#/volume] correc dominick for nucleated erythrocytes in Blood by Automated counOrdered By: Misti Connolly on 04-25-2024 WBC corrected for nucl RBC Auto (Bld) [#/Vol] 7.9 10*3/uL 3.8-11.6 [facility] Leukocytes [#/volume] in Blo od by Automated countOrdered By: Misti Connolly on 04-25-2024 WBC (Bld) [#/Vol] 7.9 10*3/uL Normal 3.8-11.6 [facility] Comment on above: Performed By: #### M G, CBC, BMP #### [address] Lymphocytes [#/volume] in Bl ood by Automated countOrdered By: Misti Connolly on 04-25-2024 Lymphocytes (Bld) [#/Vol] 2.5 10*3/uL Normal 1.00-4.8 [facility] Comment on above: Performed By: #### M G, CBC, BMP #### [address] Lymphocytes/100 leukocytes i n Blood by Automated countOrdered By: Misti Mohsen on 04-25-2024 Lymphocytes/100 WBC (Bld) 31.0 % Normal . [facility] Comment on above: Performed By: #### M G, CBC, BMP #### [address] MCH [Entitic mass] by Automa dominick countOrdered By: Misti Mohsen on 04-25-2024 MCH (RBC) [Entitic mass] 32.1 pg Normal 24.7-34.3 [facility] Comment on above: Performed By: #### M G, CBC, BMP #### [address] MCHC Auto (RBC) [Mass/Vol]Or dered By: Misti Mohsen on 04-25-2024 MCHC (RBC) [Mass/Vol] 33.3 g/dL 32.0-35.0 [facility] MCV [Entitic volume] by Auto mated countOrdered By: Misti Mohsen on 04-25-2024 MCV (RBC) [Entitic vol] 96.4 fL Normal 80-100 [facility] Comment on above: Performed By: #### M G, CBC, BMP #### [place] [address] [place] Neutrophils [#/volume] in Bl ood by Automated countOrdered By: Misti Mohsen on 04-25-2024 Neutrophils (Bld) [#/Vol] 4.8 10*3/uL Normal 1.8-7.7 [facility] Comment on above: Performed By: #### M G, CBC, BMP #### [address] No Panel InformationOrdered By: Misti Connolly on 04-25-2024 Estimated GFR (CKD-EPI) 19.217 mL/Min [facility] Creatinine Clearance (Chem 20.35 [facility] Protein Electrophoresis M-Krystian Not observed g/dL Not Observed [facility] Protein Electrophoresis Note See comment . [facility] Comment on above: Protein electrophore sis scan will follow via computer,mail, or media assistant delivery.Performed at: [facility] [place] [id number] Director: Elpidio Delgado PhD, Phone: [phone] Serum Immunofixation See comment . [facility] Comment on above: No monoclonality det ected. Nucleated erythrocytes [Pres ence] in Blood by Automated countOrdered By: Misti Connolly on 04-25-2024 Nucleated RBC Auto Ql (Bld) 0.1 /100{WBC} 0-0.5 [facility] Platelet mean volume [Entiti c volume] in Blood by Automated countOrdered By: Misti Connolly on 04-25-2024 Platelet mean volume (Bld) [Entitic vol] 10.2 fL Normal 6.3-10.7 [facility] Comment on above: Performed By: #### M G, CBC, BMP #### [facility] [address] [place] [address] [place] Platelets [#/volume] in Bloo d by Automated countOrdered By: Misti Connolly on 04-25-2024 Platelets (Bld) [#/Vol] 161 10*3/uL Normal 150-450 [facility] Comment on above: Performed By: #### M G, CBC, BMP #### [facility] [address] [id number] [place] Potassium [Moles/volume] in Serum or PlasmaOrdered By: Misti Connolly on 04-25-2024 Potassium [Moles/Vol] 4.6 mmol/L Normal 3.5-5.1 [facility] Comment on above: Performed By: #### M G, CBC, BMP #### [facility] [address] [id number] [place] Protein Electrophoresis, Ser umon 04-25-2024 Hjdzs-7-Ugawhiia 0.1 g/dL Normal 0.0-0.4 [facility] Comment on above: Performed By: #### M G, CBC, BMP #### [address] Jvfnc-0-Xvdopfnt 0.9 g/dL Normal 0.4-1.0 [facility] Comment on above: Performed By: #### M G, CBC, BMP #### [facility] [address] [place] [address] Beta Globulin 0.8 g/dL Normal 0.7-1.3 [facility] Comment on above: Performed By: #### M G, CBC, BMP #### [facility] [address] [place] [address] Gamma Globulin 0.9 g/dL Normal 0.4-1.8 [facility] Comment on above: Performed By: #### M G, CBC, BMP #### [address] M-Krystian Not Observed Normal Not Observed [facility] Comment on above: Performed By: #### M G, CBC, BMP #### [address] SPE-Note Normal . [facility] Comment on above: Result Comment: Prot ein electrophoresis scan will follow via computer, mail, or media assistant delivery. Performed at: - [facility] [id number] Timing Adjuster: Elpidio Delgado PhD, Phone: [phone] Performed By: #### M G, CBC, BMP #### [place] [id number] [place] Protein [Mass/volume] in Ser um or PlasmaOrdered By: Misti Connolly on 04-25-2024 Protein [Mass/Vol] 6.3 g/dL Low 6.4-8.9 [facility] Comment on above: Performed By: #### M G, CBC, BMP #### [address] Protein [Mass/Vol] 6.1 g/dL Normal 6.0-8.5 [facility] Comment on above: Performed By: #### M G, CBC, BMP #### [facility] [address] [place] [address] Serum globulin measurement b y calculation (mass/volume)Ordered By: Misti Mohsen on 04-25-2024 Globulin (S) [Mass/Vol] 2.7 g/dL Normal 2.2-3.[address] [facility] Comment on above: Performed By: #### M G, CBC, BMP #### [address] Serum or plasma albumin/glob ulin mass ratioOrdered By: Misti Connolly on 04-25-2024 Albumin/Globulin [Mass ratio] 1.3 {ratio} Normal 0.7-1.7 [facility] Comment on above: Performed By: #### M G, CBC, BMP #### [address] Serum or plasma alpha 1 glob ulin measurement by electrophoresis (mass/volume)Ordered By: Misti Connolly on 04-25-2024 Alpha 1 globulin Elph [Mass/Vol] 0.1 g/dL 0.0-0.4 [facility] Serum or plasma alpha 2 glob ulin measurement by electrophoresis (mass/volume)Ordered By: Misti Connolly on 04-25-2024 Alpha 2 globulin Elph [Mass/Vol] 0.9 g/dL 0.4-1.0 [facility] Serum or plasma anion gap de terminationOrdered By: Misti Connolly on 04-25-2024 Anion gap [Moles/Vol] 12.1 mmol/L Normal 6.0-15.0 [facility] Comment on above: Performed By: #### M G, CBC, BMP #### [facility] [address] [place] [address] Serum or plasma beta globuli n measurement by electrophoresis (mass/volume)Ordered By: Misti Connolly on 04-25-2024 Beta globulin Elph [Mass/Vol] 0.8 g/dL 0.7-1.3 [facility] Serum or plasma gamma globul in measurement by electrophoresis (mass/volume)Ordered By: Misti Jeanpamela on 04-25-2024 Gamma globulin Elph [Mass/Vol] 0.9 g/dL 0.4-1.8 [facility] Sodium [Moles/volume] in Ser um or PlasmaOrdered By: Misti Jeanpamela on 04-25-2024 Sodium [Moles/Vol] 136 mmol/L Normal 136-145 [facility] Comment on above: Performed By: #### M G, CBC, BMP #### [facility] [address] Urea nitrogen [Mass/volume] in Serum or PlasmaOrdered By: Msiti Mohsen on 04-25-2024 Urea nitrogen [Mass/Vol] 31 mg/dL High 7-25 [facility] Comment on above: Performed By: #### M G, CBC, BMP #### [facility] [address] Laboratory - Chemistry and C hemistry - challengeon 04-12-2024 Bilirubin Ql (U) Negative [facility] Glucose (U) [Mass/Vol] Negative [facility] Ketones Ql (U) Negative [facility] pH (U) 6.0 [pH] [facility] Specific gravity (U) [Rel density] 1.005 [facility] Urobilinogen (U) [Mass/Vol] 0 mg/dL [facility] Laboratory - Specimen inform ationon 04-12-2024 Appearance (U) cloudy [facility] Color (U) yellow [facility] Laboratory - Urinalysison Leukocyte esterase Test strip Ql (U) 70+ [facility] Nitrite Ql (U) Negative [facility] Protein Ql (U) 30 [facility] No Panel Informationon 04-12 Urine Occult Blood Negative [facility] Urine Cultureon 04-12-2024 Bacteria identified Cx Nom (U) 20,000 colonies/ml mixed bacterial skin contaminants 2 Days PERFORMED BY: [place] [address] PATHOLOGIST GUEST RELATIONS ASSOCIATE LUIS DEE M.D. Normal [facility] Comment on above: Performed By: #### C UU #### [facility] [address] Urine culture routineOrdered By: Curt Clark on 04-12-2024 Bacteria identified Cx Nom (U) 2 Days [facility] Glucose mean value [Mass/vol ume] in Blood Estimated from glycated hemoglobinon 02-15-2024 Average glucose Estimated from glycated hemoglobin (Bld) [Mass/Vol] 166 mg/dL [facility] Laboratory - Hematology and Cell countson 02-15-2024 HbA1c (Bld) [Mass fraction] 7.4 % 4.5-6.2 [facility] Comment on above: ADA RECOMMENDED LIMI T 4.0 - 6.0ADA THERAPEUTIC TARGET < 7.0ACTION SUGGESTED> 7.0 Alanine aminotransferase [En zymatic activity/volume] in Serum or PlasmaOrdered By: Claire Choi on 01-17-2024 ALT [Catalytic activity/Vol] 8 U/L Normal 7-52 [facility] Comment on above: Performed By: #### V BG #### Point of Care testing , Albumin [Mass/volume] in Ser um or PlasmaOrdered By: Claire Choi on 01-17-2024 Albumin [Mass/Vol] 3.4 g/dL Normal 2.9-4.4 [facility] Comment on above: Performed By: #### V BG #### Point of Care testing , Albumin [Mass/volume] in Ser um or Plasma by Bromocresol green (BCG) dye binding methoOrdered By: Claire Choi on 01-17-2024 Albumin BCG dye [Mass/Vol] 3.8 g/dL 3.5-5.7 [facility] Alkaline phosphatase [Enzyma tic activity/volume] in Serum or PlasmaOrdered By: Claire Choi on 01-17-2024 ALP [Catalytic activity/Vol] 103 U/L Normal 34-104 [facility] Comment on above: Performed By: #### V BG #### Point of Care testing , Aspartate aminotransferase [ Enzymatic activity/volume] in Serum or PlasmaOrdered By: Claire Choi on 01-17-2024 AST [Catalytic activity/Vol] 12 U/L Low 13-39 [facility] Comment on above: Performed By: #### V BG #### Point of Care testing , Automated basophil %Ordered By: Claire Choi on 01-17-2024 Basophils/100 WBC (Bld) 0.6 % Normal . [facility] Comment on above: Performed By: #### V BG #### Point of Care testing , Automated basophil countOrde red By: Claire Choi on 01-17-2024 Basophils (Bld) [#/Vol] 0.1 10*3/uL Normal 0.0-0.2 [facility] Comment on above: Result Comment: PERF ORMED BY: [facility] [address] [address] PATHOLOGIST GUEST RELATIONS ASSOCIATE LUIS DEE M.D. Performed By: #### V BG #### Point of Care testing , Automated blood monocyte cou ntOrdered By: Claire Choi on 01-17-2024 Monocytes (Bld) [#/Vol] 0.6 10*3/uL Normal 0.0-0.8 [facility] Comment on above: Performed By: #### V BG #### Point of Care testing , Automated eosinophil %Ordere d By: Claire Choi on 01-17-2024 Eosinophils/100 WBC (Bld) 2.0 % Normal . [facility] Comment on above: Performed By: #### V BG #### Point of Care testing , Automated eosinophil countOr dered By: Claire Choi on 01-17-2024 Eosinophils (Bld) [#/Vol] 0.2 10*3/uL Normal 0.0-0.45 [facility] Comment on above: Performed By: #### V BG #### Point of Care testing , Automated monocyte %Ordered By: Claire Choi on 01-17-2024 Monocytes/100 WBC (Bld) 7.4 % Normal . [facility] Comment on above: Performed By: #### V BG #### Point of Care testing , Automated neutrophil %Ordere d By: Claire Choi on 01-17-2024 Neutrophils/100 WBC (Bld) 64.6 % Normal . [facility] Comment on above: Performed By: #### V BG #### Point of Care testing , Bilirubin.total [Mass/volume ] in Serum or PlasmaOrdered By: Claire Choi on 01-17-2024 Bilirubin [Mass/Vol] 0.5 mg/dL Normal 0.3-1.0 [facility] Comment on above: Performed By: #### V BG #### Point of Care testing , Calcium [Mass/volume] in Ser um or PlasmaOrdered By: Claire Choi on 01-17-2024 Calcium [Mass/Vol] 8.6 mg/dL Normal 8.6-10.3 [facility] Comment on above: Performed By: #### V BG #### Point of Care testing , Carbon dioxide, total [Moles /volume] in Serum or PlasmaOrdered By: Claire Choi on 01-17-2024 CO2 [Moles/Vol] 20.0 mmol/L Low 21.0-31.0 [facility] Comment on above: Performed By: #### V BG #### Point of Care testing , Chloride [Moles/volume] in S amanda or PlasmaOrdered By: Claire Choi on 01-17-2024 Chloride [Moles/Vol] 112 mmol/L High 98-107 [facility] Comment on above: Performed By: #### V BG #### Point of Care testing , Complete Blood Count Auto Di ffon 01-17-2024 Mean Corpuscular HGB Conc 33.7 g/dL Normal 32.0-35.0 [facility] Comment on above: Performed By: #### V BG #### Point of Care testing , NRBC% 0.0 /100{WBC} Normal 0-0.5 [facility] Comment on above: Performed By: #### V BG #### Point of Care testing , Comprehensive Metabolic Pane natalia 01-17-2024 Albumin [Mass/Vol] 3.8 g/dL Normal 3.5-5.7 [facility] Comment on above: Performed By: #### V BG #### Point of Care testing , Creatinine Clr Calc Pharmacy 21.10 Normal [facility] Comment on above: Result Comment: PERF ORMED BY: [facility] [place] [address] PATHOLOGIST GUEST RELATIONS ASSOCIATE LUIS DEE M.D. Performed By: #### V BG #### Point of Care testing , GFR/1.73 sq M.predicted MDRD (S/P/Bld) [Vol rate/Area] 20.724 mL/min/{1.73_m2} Normal [facility] Comment on above: Performed By: #### V BG #### Point of Care testing , Creatinine [Mass/volume] in Serum or PlasmaOrdered By: Claire Choi on 01-17-2024 Creatinine [Mass/Vol] 2.31 mg/dL High 0.60-1.20 [facility] Comment on above: Performed By: #### V BG #### Point of Care testing , Erythrocyte distribution wid th [Ratio] by Automated countOrdered By: Claire Choi on 01-17-2024 Erythrocyte distribution width (RBC) [Ratio] 13.3 % Normal 11.9-15.3 [facility] Comment on above: Performed By: #### V BG #### Point of Care testing , Erythrocytes [#/volume] in B lood by Automated countOrdered By: Claire Choi on 01-17-2024 RBC (Bld) [#/Vol] 3.96 10*6/uL Normal 3.60-5.00 [facility] Comment on above: Performed By: #### V BG #### Point of Care testing , Free K+L LT Chains, Qn, Son 01-17-2024 Free [place] Light Chains, S 39.5 mg/L High 3.3-19.4 [facility] Comment on above: Performed By: #### V BG #### Point of Care testing , Free Lambda Light Chains, S 22.8 mg/L Normal 5.7-26.3 [facility] Comment on above: Performed By: #### V BG #### Point of Care testing , [place]/Lambda Ratio, S 1.73 High 0.26-1.65 [facility] Comment on above: Result Comment: Perf ormed at: [facility] - [facility] [address] [id number] Timing Adjuster: Elpidio Delgado PhD, Phone: [phone] PERFORMED BY: [facility] [place] [address] PATHOLOGIST GUEST RELATIONS ASSOCIATE LUIS DEE M.D. Performed By: #### V BG #### Point of Care testing , Glucose [Mass/volume] in Ser um or PlasmaOrdered By: Claire Choi on 01-17-2024 Glucose [Mass/Vol] 150 mg/dL High 70-100 [facility] Comment on above: ADA recommended refe rence rangeRandom Glucose Reference Range is dependent on time and content of last meal. Glucose of more than 200 mg/dL in a nonstressed, ambulatory subject supports the diagnosis of Diabetes Mellitus. Result Comment: [place] om Glucose Reference Range is dependent on [...] (Bld) [Volume fraction] 37.6 % Normal 34.0-46.4 [facility] Comment on above: Performed By: #### V BG #### Point of Care testing , Hemoglobin [Mass/volume] in BloodOrdered By: Claire Choi on 01-17-2024 Hemoglobin (Bld) [Mass/Vol] 12.7 g/dL Normal 11.8-15.4 [facility] Comment on above: Performed By: #### V BG #### Point of Care testing , IgA [Mass/volume] in Serum o r PlasmaOrdered By: Claire Choi on 01-17-2024 IgA [Mass/Vol] 214 mg/dL 64-422 [facility] IgG [Mass/volume] in Serum o r PlasmaOrdered By: Claire Choi on 01-17-2024 IgG [Mass/Vol] 896 mg/dL 586-1602 [facility] IgM [Mass/volume] in Serum o r PlasmaOrdered By: Claire Choi on 01-17-2024 IgM [Mass/Vol] 187 mg/dL 26-217 [facility] Comment on above: Performed at: [facility] [address] [id number] Director: Elpidio Delgado PhD, Phone: [phone] Immunofixation,Serumon 01-16 Immunofixation, Serum Normal . [facility] Comment on above: Result Comment: No m onoclonality detected. Performed By: #### V BG #### Point of Care testing , Immunoglobulin A, Serum 214 mg/dL Normal 64-422 [facility] Comment on above: Performed By: #### V BG #### Point of Care testing , Immunoglobulin G 896 mg/dL Normal 586-1602 [facility] Comment on above: Performed By: #### V BG #### Point of Care testing , Immunoglobulin M, Serum 187 mg/dL Normal 26-217 [facility] Comment on above: Result Comment: Perf ormed at: [employer] [facility] [place] [id number] [place], [place] [id number] Timing Adjuster: Elpidio Delgado PhD, Phone: [phone] Performed By: #### V BG #### Point of Care testing , Immunoglobulin light chains. kappa.free [Mass/volume] in SerumOrdered By: Claire Choi on 01-17-2024 Immunoglobulin light chains.kappa.free (S) [Mass/Vol] 39.5 mg/L 3.3-19.4 [facility] Immunoglobulin light chains. kappa.free/Immunoglobulin light chains.lambda.free [MassOrdered By: Claire Choi on 01-17-2024 Immunoglobulin light chains.kappa.free/Immuno globulin light chains.lambda.free (S) [Mass ratio] 1.73 0.26-1.65 [facility] Comment on above: Performed at: [facility] [address], [place] [id number] Director: Elpidio Delgado PhD, Phone: [phone] Immunoglobulin light chains. lambda.free [Mass/volume] in Serum or PlasmaOrdered By: Claire Choi on 01-17-2024 Immunoglobulin light chains.lambda.free [Mass/Vol] 22.8 mg/L 5.7-26.3 [facility] Leukocytes [#/volume] correc dominick for nucleated erythrocytes in Blood by Automated counOrdered By: Claire Choi on 01-17-2024 WBC corrected for nucl RBC Auto (Bld) [#/Vol] 8.5 10*3/uL 3.8-11.6 [facility] Leukocytes [#/volume] in Blo od by Automated countOrdered By: Claire Choi on 01-17-2024 WBC (Bld) [#/Vol] 8.5 10*3/uL Normal 3.8-11.6 [facility] Comment on above: Performed By: #### V BG #### Point of Care testing , Lymphocytes [#/volume] in Bl ood by Automated countOrdered By: Claire Choi on 01-17-2024 Lymphocytes (Bld) [#/Vol] 2.2 10*3/uL Normal 1.00-4.8 [facility] Comment on above: Performed By: #### V BG #### Point of Care testing , Lymphocytes/100 leukocytes i n Blood by Automated countOrdered By: Claire Choi on 01-17-2024 Lymphocytes/100 WBC (Bld) 25.4 % Normal . [facility] Comment on above: Performed By: #### V BG #### Point of Care testing , MCH [Entitic mass] by Automa dominick countOrdered By: Claire Choi on 01-17-2024 MCH (RBC) [Entitic mass] 31.9 pg Normal 24.7-34.3 [facility] Comment on above: Performed By: #### V BG #### Point of Care testing , MCHC Auto (RBC) [Mass/Vol]Or dered By: Claire Choi on 01-17-2024 MCHC (RBC) [Mass/Vol] 33.7 g/dL 32.0-35.0 [facility] MCV [Entitic volume] by Auto mated countOrdered By: Claire Choi on 01-17-2024 MCV (RBC) [Entitic vol] 94.8 fL Normal 80-100 [facility] Comment on above: Performed By: #### V BG #### Point of Care testing , Neutrophils [#/volume] in Bl ood by Automated countOrdered By: Claire Choi on 01-17-2024 Neutrophils (Bld) [#/Vol] 5.5 10*3/uL Normal 1.8-7.7 [facility] Comment on above: Performed By: #### V BG #### Point of Care testing , No Panel InformationOrdered By: Claire Choi on 01-17-2024 Estimated GFR (CKD-EPI) 20.724 mL/Min [facility] Creatinine Clearance (Chem 21.10 [facility] Protein Electrophoresis M-Krystian Comment: g/dL Not Observed [facility] Comment on above: SPE shows a beta hector ma band of restricted mobility due tofibrinogen in the plasma sample submitted. Protein Electrophoresis Note See comment . [facility] Comment on above: Protein electrophore sis scan will follow via computer,mail, or media assistant delivery.Performed at: [facility] [id number] Director: Elpidio Delgado PhD, Phone: [phone] Serum Immunofixation See comment . [facility] Comment on above: No monoclonality det ected. Nucleated erythrocytes [Pres ence] in Blood by Automated countOrdered By: Claire Choi on 01-17-2024 Nucleated RBC Auto Ql (Bld) 0.0 /100{WBC} 0-0.5 [facility] Platelet mean volume [Entiti c volume] in Blood by Automated countOrdered By: Claire Choi on 01-17-2024 Platelet mean volume (Bld) [Entitic vol] 10.1 fL Normal 6.3-10.7 [facility] Comment on above: Performed By: #### V BG #### Point of Care testing , Platelets [#/volume] in Bloo d by Automated countOrdered By: Claire Choi on 01-17-2024 Platelets (Bld) [#/Vol] 201 10*3/uL Normal 150-450 [facility] Comment on above: Performed By: #### V BG #### Point of Care testing , Potassium [Moles/volume] in Serum or PlasmaOrdered By: Claire Choi on 01-17-2024 Potassium [Moles/Vol] 4.6 mmol/L Normal 3.5-5.1 [facility] Comment on above: Performed By: #### V BG #### Point of Care testing , Protein Electrophoresis, Ser umon 01-17-2024 Idksl-4-Rexbwgkj 0.1 g/dL Normal 0.0-0.4 [facility] Comment on above: Performed By: #### V BG #### Point of Care testing , Eqqhn-3-Xlxfgyrh 0.8 g/dL Normal 0.4-1.0 [facility] Comment on above: Performed By: #### V BG #### Point of Care testing , Beta Globulin 0.9 g/dL Normal 0.7-1.3 [facility] Comment on above: Performed By: #### V BG #### Point of Care testing , Gamma Globulin 1.2 g/dL Normal 0.4-1.8 [facility] Comment on above: Performed By: #### V BG #### Point of Care testing , M-Krystian Comment: Normal Not Observed [facility] Comment on above: Result Comment: SPE shows a beta gamma band of restricted mobility due to fibrinogen in the plasma sample submitted. Performed By: #### V BG #### Point of Care testing , SPE-Note Normal . [facility] Comment on above: Result Comment: Prot ein electrophoresis scan will follow via computer, mail, or media assistant delivery. Performed at: - [facility] [id number] Timing Adjuster: Elpidio Delgado PhD, Phone: [phone] Performed By: #### V BG #### Point of Care testing , Protein [Mass/volume] in Ser um or PlasmaOrdered By: Claire Choi on 01-17-2024 Protein [Mass/Vol] 6.6 g/dL Normal 6.4-8.9 [facility] Comment on above: Performed By: #### V BG #### Point of Care testing , Protein [Mass/Vol] 6.5 g/dL Normal 6.0-8.5 [facility] Comment on above: Performed By: #### V BG #### Point of Care testing , Serum globulin measurement ( mass/volume)Ordered By: Claire Choi on 01-17-2024 Globulin (S) [Mass/Vol] 3.1 g/dL Normal 2.2-3.[address] [facility] Comment on above: Performed By: #### V BG #### Point of Care testing , Serum globulin measurement b y calculation (mass/volume)Ordered By: Claire Choi on 01-17-2024 Globulin (S) [Mass/Vol] 2.8 g/dL Normal [facility] Comment on above: Performed By: #### V BG #### Point of Care testing , Serum or plasma albumin/glob ulin mass ratioOrdered By: Claire Choi on 01-17-2024 Albumin/Globulin [Mass ratio] 1.4 {ratio} Normal [facility] Comment on above: Performed By: #### V BG #### Point of Care testing , Albumin/Globulin [Mass ratio] 1.1 {ratio} Normal 0.7-1.7 [facility] Comment on above: Performed By: #### V BG #### Point of Care testing , Serum or plasma alpha 1 glob ulin measurement by electrophoresis (mass/volume)Ordered By: Claire Choi on 01-17-2024 Alpha 1 globulin Elph [Mass/Vol] 0.1 g/dL 0.0-0.4 [facility] Serum or plasma alpha 2 glob ulin measurement by electrophoresis (mass/volume)Ordered By: Claire Choi on 01-17-2024 Alpha 2 globulin Elph [Mass/Vol] 0.8 g/dL 0.4-1.0 [facility] Serum or plasma anion gap de terminationOrdered By: Claire Choi on 01-17-2024 Anion gap [Moles/Vol] 10.6 mmol/L Normal 6.0-15.0 [facility] Comment on above: Performed By: #### V BG #### Point of Care testing , Serum or plasma beta globuli n measurement by electrophoresis (mass/volume)Ordered By: Claire Choi on 01-17-2024 Beta globulin Elph [Mass/Vol] 0.9 g/dL 0.7-1.3 [facility] Serum or plasma gamma globul in measurement by electrophoresis (mass/volume)Ordered By: Claire Choi on 01-17-2024 Gamma globulin Elph [Mass/Vol] 1.2 g/dL 0.4-1.8 [facility] Sodium [Moles/volume] in Ser um or PlasmaOrdered By: Claire Choi on 01-17-2024 Sodium [Moles/Vol] 138 mmol/L Normal 136-145 [facility] Comment on above: Performed By: #### V BG #### Point of Care testing , Urea nitrogen [Mass/volume] in Serum or PlasmaOrdered By: Claire Choi on 01-17-2024 Urea nitrogen [Mass/Vol] 41 mg/dL High 7-25 [facility] Comment on above: Performed By: #### [...] VELAZQUEZ, Tyree Rivers Where: [facility] Patient Educationon 01-09-20 Patient Education Nephrology [...] ? 8 oz (237 mL) of milk, grvaimy-qaiuhalchucy-wdqs y milk, and calcium-fortifiedfruit juice. Calcium-fortified means [...] Spinach (cooked), rhubarb, beets, sweet potatoes, and Micronesian chard. ? Peanuts. ? Potato chips, greenlandic fries, and baked potatoes with skin on. ? Nuts and nut products. ? Chocolate. ? If you regularly take a diuretic medicine, make sure to eat at least 1 or 2 servings of fruits or vegetables that are high in potassium each day. These include: ? Avocado. ? Banana. ? [place], prune, carrot, or tomato juice. ? Baked [...] fish oil, or vitamin B6. ? Take xuye-uyy-dgwzzmt and prescription medicines only as told by your health care provider. These include supplements. What foods sh (more content not included)... Normal [facility] Urology Office/Clinic Noteon 01-09-2024 Urology Office/Clinic Note [...] When Contact Information XAVIER VELAZQUEZ, Tyree Rivers, [facility] [address], [place] [phone] Additional Instructions: 1 yr w/ KAYLAB Patient [...] Rash) pr (more content not included)... Normal [facility] Comment on above: Result Comment: Elec tronically Signed By: Tyree PARK MD\.br\Date and Time Signed: 01/09/24 09:42 EST\.br\Electronically Co-Signed By: Tanya Schwartz\.br\Date and Time Co-Signed: 01/09/24 09:41 EST RAD - MISCon 01-06-2024 RAD - [facility] [id number] Normal [facility] Automated epithelial cells c ount in urine sediment (number/area)on 12-27-2023 Epithelial cells Auto (Urine sed) [#/Area] RARE #/LPF NONE/RARE [facility] Automated leukocytes count i n urine sediment (number/area)on 12-27-2023 WBC Auto (Urine sed) [#/Area] 0-2 #/HPF 0-2 [facility] Automated urine specific gra vity by refractometryon 12-27-2023 Specific gravity Refractometry automated (U) [Rel density] 1.010 1.005-1.02 5 [facility] Bilirubin Auto test strip (U ) [Mass/Vol]on 12-27-2023 Bilirubin (U) [Mass/Vol] Negative NEGATIVE [facility] Casts typing in urine sedime nt by light microscopyon 12-27-2023 Casts LM Nom (Urine sed) NONE SEEN #/LPF NONE S EEN [facility] Color Auto (U)on 12-27-2023 Color (U) LT. YELLOW YELLOW [facility] Erythrocyte distribution wid th Auto (RBC) [Ratio]on 12-27-2023 Erythrocyte distribution width (RBC) [Ratio] 12.5 % 11.0-15.0 [facility] Estimated glomerular filtrat ion rate (GFR) non- Americanon 12-27-2023 GFR/1.73 sq M.predicted among non-blacks MDRD (S/P/Bld) [Vol rate/Area] 18 mL/min/{1.73_m2} >=60 [facility] Hematocrit Auto (Bld) [Volum e fraction]on 12-27-2023 Hematocrit (Bld) [Volume fraction] 40.2 % 36.0-48.0 [facility] Hemoglobin [Mass/volume] in Bloodon 12-27-2023 Hemoglobin (Bld) [Mass/Vol] 12.9 g/dL 12.0-16.0 [facility] Ketones Auto test strip (U) [Mass/Vol]on 12-27-2023 Ketones (U) [Mass/Vol] Negative NEGATIVE [facility] Laboratory - Chemistry and C hemistry - challengeon 12-27-2023 Albumin [Mass/Vol] 3.2 g/dL 3.4-5.0 [facility] Calcium [Mass/Vol] 8.4 mg/dL 8.5-10.1 [facility] Chloride [Moles/Vol] 108 mmol/L 98-107 [facility] CO2 [Moles/Vol] 24.3 mmol/L 21.0-32.0 [facility] Creatinine [Mass/Vol] 2.57 mg/dL 0.55-1.02 [facility] GFR/1.73 sq M.predicted MDRD (S/P/Bld) [Vol rate/Area] 22 mL/min/{1.73_m2} >=60 [facility] Glucose [Mass/Vol] 88 mg/dL 74-106 [facility] Magnesium [Mass/Vol] 2.1 mg/dL 1.8-2.4 [facility] Potassium [Moles/Vol] 4.4 mmol/L 3.5-5.1 [facility] Sodium [Moles/Vol] 141 mmol/L 136-145 [facility] Urate [Mass/Vol] 5.9 mg/dL 2.6-6.0 [facility] Urea nitrogen [Mass/Vol] 32.0 mg/dL 7.0-18.0 [facility] Urea nitrogen/Creatinine [Mass ratio] 12.5 mg/mg [facility] Laboratory - Urinalysison Protein (U) [Mass/Vol] 27.1 mg/dL <=11.9 [facility] Leukocytes [#/volume] correc dominick for nucleated erythrocytes in Blood by Automated counon 12-27-2023 WBC corrected for nucl RBC Auto (Bld) [#/Vol] 8.3 10 3/uL 4.0-11.0 [facility] MCH Auto (RBC) [Entitic mass ]on 12-27-2023 MCH (RBC) [Entitic mass] 31.5 pg 26.7-34.0 [facility] MCHC Auto (RBC) [Mass/Vol]on 12-27-2023 MCHC (RBC) [Mass/Vol] 32.1 g/dL 29.9-35.2 [facility] MCV Auto (RBC) [Entitic vol] on 12-27-2023 MCV (RBC) [Entitic vol] 98.3 fL 81.0-99.0 [facility] Mucus LM Ql (Urine sed)on Mucus Ql (Urine sed) NONE SEEN NONE SEEN [facility] No Panel Informationon 12-27 25-Hydroxy Vitamin D Total 42.6 ng/mL [facility] Comment on above: <20 ng/mL Vit D defi cient20-<30 ng/mL Vit D kxajxgvikqhi97-295 ng/mL Vit D sufficient>100 ng/mL Potential Toxicity Parathyroid Hormone (Intact) 78 pg/mL 15-65 [facility] Comment on above: Performed at: - [address] [id number] Director: Elpidio Delgado PhD, Phone: [phone] Phosphorus Level 4.2 mg/dL 2.6-4.7 [facility] Urine Random Creatinine 59.98 mg/dL 20.0 0-300. 00 [facility] Platelet mean volume Auto (B ld) [Entitic vol]on 12-27-2023 Platelet mean volume (Bld) [Entitic vol] 11.3 fL 9.5-13.5 [facility] Platelets Auto (Bld) [#/Vol] on 12-27-2023 Platelets (Bld) [#/Vol] 195 10 3/uL 150-450 [facility] Protein Auto test strip (U) [Mass/Vol]on 12-27-2023 Protein (U) [Mass/Vol] Negative NEG/TRACE [facility] RBC Auto (Bld) [#/Vol]on RBC (Bld) [#/Vol] 4.09 10 6/uL 4.20-5.40 [facility] Serum or plasma anion gap de terminationon 12-27-2023 Anion gap [Moles/Vol] 13.1 mmol/L [facility] Specific gravity Auto test s trip (U) [Rel density]on 12-27-2023 Specific gravity (U) [Rel density] CLEAR CLEAR [facility] Urine bacteria detection by automated methodon 12-27-2023 Bacteria Auto Ql (U) TRACE #/HPF NONE SEEN [facility] Urine glucose measurement by test strip (mass/volume)on 12-27-2023 Glucose Test strip (U) [Mass/Vol] Negative NEGATIVE [facility] Urine hemoglobin detection b y automated test stripon 12-27-2023 Hemoglobin Auto test strip Ql (U) Negative NEGATIVE [facility] Urine nitrite detection by a utomated test stripon 12-27-2023 Nitrite Auto test strip Ql (U) Negative NEGATIVE [facility] Urine protein/creatinine rat ioon 12-27-2023 Protein/Creatinine (U) [Ratio] 0.45 [facility] Urine sediment crystal ident ification by light microscopyon 12-27-2023 Crystals LM Nom (Urine sed) None Seen #/HPF None Seen [facility] Urine sediment leukocyte cou nt by microscopy (number/high power field)on 12-27-2023 WBC LM.HPF (Urine sed) [#/Area] 0-2 #/HPF NONE SEEN [facility] Urobilinogen Auto test strip (U) [Mass/Vol]on 12-27-2023 Urobilinogen Qn (U) 0.2 {Marley'U}/dL 0.2-1.0 [facility] pH Auto test strip (U)on pH (U) 6.5 [pH] 5.0-9.0 [facility] US Heart TransthoracicOrdere d By: Russel Tolbert on 11-03-2023 Aortic Valve Area by Continuity of Peak Velocity 1.84 [facility] Work Phone: Aortic Valve Area by Continuity of VTI 1.69 [facility] Work Phone: AV mn grad 4.0 [facility] Work Phone: [phone] AV pk grad 8.8 [facility] Work Phone: AV pk nisha 1.48 [facility] Work Phone: LV A4C EF 65.5 [facility] Work Phone: [phone] LVIDd 4.10 [facility] Work Phone: [phone] LVOT diam 2.00 [facility] Work Phone: [phone] MV avg E/e' ratio 17.40 [facility] Work Phone: MV E/A ratio 1.11 [facility] Work Phone: [phone] RVSP 25.3 [facility] Work Phone: [facility] Work Phone: US Heart Transthoracicon [facility] [address], [address], [place] [address] TRANSTHORACIC ECHOCARDIOGRAM REPORT Patient Name: HAILEE TRIVEDI Reading Physician: [id number] Tolbert MD Study Date: 11/02/2023 Ordering Provider: [id number] ELICIA RHODES MRN/PID: [id number] Fellow: Nurse: Date of /Age: 6 1940 / 83 years Director Blood Bank: Allyson Dobson RDCS, RVT Gender: F Additional Staff: Height: 167.64 cm Admit Date: Weight: 88.00 kg Admission Status: BSA: 1.97 m2 Department Location: [facility] Blood Pressure: 140 /74 mmHg Study Type: TRANSTHORACIC ECHO (TTE) COMPLETE Diagnosis/ICD: Nonrheumatic aortic (valve) insufficiency-I35.1; 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 ÁNGELO Russel Tolbert MD - 11/03/[address], [address], [place] [address] TRANSTHORACIC ECHOCARDIOGRAM REPORT Patient Name: HAILEE TRIVEDI Reading Physician: [id number] Russel Tolbert MD Study Date: 11/02/2023 Ordering Provider: [id number] ELICIA RHODES MRN/PID: [id number] Fellow: Nurse: Date of /Age: 6 1940 / 83 years Director Blood Bank: Allyson Dobson [facility], T Gender: F Additional Staff: Height: 167.64 cm Admit Date: Weight: 88.00 kg Admission Status: BSA: 1.97 m2 Department Location: [facility] Blood Pressure: 140 /74 mmHg Study Type: TRANSTHORACIC ECHO (TTE) COMPLETE Diagnosis/ICD: Nonrheumatic aortic (valve) insufficiency-I35.1; 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; Pulmonary hypertension, unspecified-I27.20 Indication: Atrial Fibrillation, HTN, Hyperlipidemia, 2/6 Diastolic Murmur, CKD-Stage III-IV, Multiple Myeloma-in Remission, Cerebellar Infarct, Obesity CPT Codes: Echo Complete w Full Doppler-[id number] Study Detail: The following Echo studies were [...] mmHg PIEDV: 2.22 m/s PADP: 22.7 mmHg [id number] Russel Tolbert MD Electronically signed on 11/03/2023 at 11:22:05 AM Final [facility] Work Phone: TRANSTHORACIC ECHO (TTE) [facility]ly [facility] 11-02-2023 TRANSTHORACIC ECHO (TTE) [address], [address] [address] TRANSTHORACIC ECHOCARDIOGRAM REPORT Patient Name: HAILEE TRIVEDI Reading Physician: [id number] Russel Tolbert MD Study Date: 11/02/2023 Ordering Provider: [id number] ELICAI RHODES MRN/PID: [id number] Fellow: Nurse: Date of /Age: 6 1940 / 83 years Director Blood Bank: Allyson Dobson RDCS, RVT Gender: F Additional Staff: Height: 167.64 cm Admit Date: Weight: 88.00 kg Admission Status: BSA: 1.97 m2 Department Location: [facility] Blood Pressure: 140 /74 mmHg Study Type: TRANSTHORACIC ECHO (TTE) COMPLETE Diagnosis/ICD: Nonrheumatic aortic (valve) insufficiency-I35.1; 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 Alanine aminotransferase [En zymatic activity/volume] in Serum or PlasmaOrdered By: Claire Choi on 10-18-2023 ALT [Catalytic activity/Vol] 9 U/L Normal 7-52 [facility] Comment on above: Performed By: #### V BG #### Point of Care testing , Albumin [Mass/volume] in Ser um or PlasmaOrdered By: Claire Choi on 10-18-2023 Albumin [Mass/Vol] 3.6 g/dL Normal 2.9-4.4 [facility] Comment on above: Performed By: #### V BG #### Point of Care testing , Albumin [Mass/volume] in Ser um or Plasma by Bromocresol green (BCG) dye binding methoOrdered By: Claire Choi on 10-18-2023 Albumin BCG dye [Mass/Vol] 3.8 g/dL 3.5-5.7 [facility] Alkaline phosphatase [Enzyma tic activity/volume] in Serum or PlasmaOrdered By: Claire Choi on 10-18-2023 ALP [Catalytic activity/Vol] 94 U/L Normal 34-104 [facility] Comment on above: Performed By: #### V BG #### Point of Care testing , Aspartate aminotransferase [ Enzymatic activity/volume] in Serum or PlasmaOrdered By: Claire Choi on 10-18-2023 AST [Catalytic activity/Vol] 14 U/L Normal 13-39 [facility] Comment on above: Performed By: #### V BG #### Point of Care testing , Automated basophil %Ordered By: Claire Choi on 10-18-2023 Basophils/100 WBC (Bld) 1.2 % Normal . [facility] Comment on above: Performed By: #### V BG #### Point of Care testing , Automated basophil countOrde red By: Claire Choi on 10-18-2023 Basophils (Bld) [#/Vol] 0.1 10*3/uL Normal 0.0-0.2 [facility] Comment on above: Result Comment: PERF ORMED BY: [facility] [address] [place] [address] PATHOLOGIST [employer]ATIONS ASSOCIATE LUIS DEE M.D. Performed By: #### V BG #### Point of Care testing , Automated blood monocyte cou ntOrdered By: Claire Choi on 10-18-2023 Monocytes (Bld) [#/Vol] 0.6 10*3/uL Normal 0.0-0.8 [facility] Comment on above: Performed By: #### V BG #### Point of Care testing , Automated eosinophil %Ordere d By: Claire Choi on 10-18-2023 Eosinophils/100 WBC (Bld) 1.1 % Normal . [facility] Comment on above: Performed By: #### V BG #### Point of Care testing , Automated eosinophil countOr dered By: Claire Choi on 10-18-2023 Eosinophils (Bld) [#/Vol] 0.1 10*3/uL Normal 0.0-0.45 [facility] Comment on above: Performed By: #### V BG #### Point of Care testing , Automated monocyte %Ordered By: Claire Choi on 10-18-2023 Monocytes/100 WBC (Bld) 7.6 % Normal . [facility] Comment on above: Performed By: #### V BG #### Point of Care testing , Automated neutrophil %Ordere d By: Claire Choi on 10-18-2023 Neutrophils/100 WBC (Bld) 59.9 % Normal . [facility] Comment on above: Performed By: #### V BG #### Point of Care testing , Bilirubin.total [Mass/volume ] in Serum or PlasmaOrdered By: Claire Choi on 10-18-2023 Bilirubin [Mass/Vol] 0.4 mg/dL Normal 0.3-1.0 [facility] Comment on above: Performed By: #### V BG #### Point of Care testing , Calcium [Mass/volume] in Ser um or PlasmaOrdered By: Claire Choi on 10-18-2023 Calcium [Mass/Vol] 8.7 mg/dL Normal 8.6-10.3 [facility] Comment on above: Performed By: #### V BG #### Point of Care testing , Carbon dioxide, total [Moles /volume] in Serum or PlasmaOrdered By: Claire Choi on 10-18-2023 CO2 [Moles/Vol] 24.2 mmol/L Normal 21.0-31.0 [facility] Comment on above: Performed By: #### V BG #### Point of Care testing , Chloride [Moles/volume] in S amanda or PlasmaOrdered By: Claire Choi on 10-18-2023 Chloride [Moles/Vol] 108 mmol/L High 98-107 [facility] Comment on above: Performed By: #### V BG #### Point of Care testing , Complete Blood Count Auto Di ffon 10-18-2023 Mean Corpuscular HGB Conc 32.8 g/dL Normal 32.0-35.0 [facility] Comment on above: Performed By: #### V BG #### Point of Care testing , NRBC% 0.1 /100{WBC} Normal 0-0.5 [facility] Comment on above: Performed By: #### V BG #### Point of Care testing , Comprehensive Metabolic Pane natalia 10-18-2023 Albumin [Mass/Vol] 3.8 g/dL Normal 3.5-5.7 [facility] Comment on above: Performed By: #### V BG #### Point of Care testing , Creatinine Clr Calc Pharmacy 20.65 Normal [facility] Comment on above: Result Comment: PERF ORMED BY: [facility] [address] [place] [address] PATHOLOGIST G[employer] RELATIONS ASSOCIATE LUIS DEE M.D. Performed By: #### V BG #### Point of Care testing , GFR/1.73 sq M.predicted MDRD (S/P/Bld) [Vol rate/Area] 20.198 mL/min/{1.73_m2} Normal [facility] Comment on above: Performed By: #### V BG #### Point of Care testing , Creatinine [Mass/volume] in Serum or PlasmaOrdered By: Claire Choi on 10-18-2023 Creatinine [Mass/Vol] 2.36 mg/dL High 0.60-1.20 [facility] Comment on above: Performed By: #### V BG #### Point of Care testing , Erythrocyte distribution wid th [Ratio] by Automated countOrdered By: Claire Choi on 10-18-2023 Erythrocyte distribution width (RBC) [Ratio] 14.6 % Normal 11.9-15.3 [facility] Comment on above: Performed By: #### V BG #### Point of Care testing , Erythrocytes [#/volume] in B lood by Automated countOrdered By: Claire Choi on 10-18-2023 RBC (Bld) [#/Vol] 3.72 10*6/uL Normal 3.60-5.00 [facility] Comment on above: Performed By: #### V BG #### Point of Care testing , Free K+L LT Chains, Qn, Son 10-18-2023 Free [place] Light Chains, S 39.7 mg/L High 3.3-19.4 [facility] Comment on above: Performed By: #### V BG #### Point of Care testing , Free Lambda Light Chains, S 23.4 mg/L Normal 5.7-26.3 [facility] Comment on above: Performed By: #### V BG #### Point of Care testing , [place]/Lambda Ratio, S 1.70 High 0.26-1.65 [facility] Comment on above: Result Comment: Perf ormed at: CB - [facility] [address] [id number] Timing Adjuster: Elpidio Delgado PhD, Phone: [phone] PERFORMED BY: [address] [place] [address] PATHOLOGIST GUEST RELATIONS ASSOCIATE LUIS DEE M.D. Performed By: #### V BG #### Point of Care testing , Glucose [Mass/volume] in Ser um or PlasmaOrdered By: Claire Choi on 10-18-2023 Glucose [Mass/Vol] 176 mg/dL High 70-100 [facility] [facility] Comment on above: ADA recommended refe rence rangeRandom Glucose Reference Range is dependent on time and content of last meal. Glucose of more than 200 mg/dL in a nonstressed, ambulatory subject supports the diagnosis of Diabetes Mellitus. Result Comment: [place] om Glucose Reference Range is dependent on [...] (Bld) [Volume fraction] 36.0 % Normal 34.0-46.4 [facility] Comment on above: Performed By: #### V BG #### Point of Care testing , Hemoglobin [Mass/volume] in BloodOrdered By: Claire Choi on 10-18-2023 Hemoglobin (Bld) [Mass/Vol] 11.8 g/dL Normal 11.8-15.4 [facility] Comment on above: Performed By: #### V BG #### Point of Care testing , IgA [Mass/volume] in Serum o r PlasmaOrdered By: Claire Choi on 10-18-2023 IgA [Mass/Vol] 162 mg/dL 64-422 [facility] IgG [Mass/volume] in Serum o r PlasmaOrdered By: Claire Choi on 10-18-2023 IgG [Mass/Vol] 708 mg/dL [phone] [facility] IgM [Mass/volume] in Serum o r PlasmaOrdered By: Claire Choi on 10-18-2023 IgM [Mass/Vol] 117 mg/dL 26-217 [facility] Comment on above: Performed at: [employer] [facility] [place] [id number] Director: Elpidio Delgado PhD, Phone: [phone] Immunofixation,Serumon 10-18 Immunofixation, Serum Normal . [facility] Comment on above: Result Comment: No m onoclonality detected. Performed By: #### V BG #### Point of Care testing , Immunoglobulin A, Serum 162 mg/dL Normal 64-422 [facility] Comment on above: Performed By: #### V BG #### Point of Care testing , Immunoglobulin G 708 mg/dL Normal [phone] [facility] Comment on above: Performed By: #### V BG #### Point of Care testing , Immunoglobulin M, Serum 117 mg/dL Normal 26-217 [facility] Comment on above: Result Comment: Perf ormed at: [employer] [facility] [place] [id number] Timing Adjuster: Elpidio Delgado PhD, Phone: [phone] Performed By: #### V BG #### Point of Care testing , Immunoglobulin light chains. kappa.free [Mass/volume] in SerumOrdered By: Claire Choi on 10-18-2023 Immunoglobulin light chains.kappa.free (S) [Mass/Vol] 39.7 mg/L 3.3-19.4 [facility] Immunoglobulin light chains. kappa.free/Immunoglobulin light chains.lambda.free [MassOrdered By: Claire Choi on 10-18-2023 Immunoglobulin light chains.kappa.free/Immuno globulin light chains.lambda.free (S) [Mass ratio] 1.70 0.26-1.65 [facility] Comment on above: Performed at: [address] [id number] Director: Elpidio Delgado PhD, Phone: [phone] Immunoglobulin light chains. lambda.free [Mass/volume] in Serum or PlasmaOrdered By: Claire Choi on 10-18-2023 Immunoglobulin light chains.lambda.free [Mass/Vol] 23.4 mg/L 5.7-26.3 [facility] Leukocytes [#/volume] correc dominick for nucleated erythrocytes in Blood by Automated counOrdered By: Claire Choi on 10-18-2023 WBC corrected for nucl RBC Auto (Bld) [#/Vol] 8.2 10*3/uL 3.8-11.6 [facility] Leukocytes [#/volume] in Blo od by Automated countOrdered By: Claire Choi on 10-18-2023 WBC (Bld) [#/Vol] 8.2 10*3/uL Normal 3.8-11.6 [facility] Comment on above: Performed By: #### V BG #### Point of Care testing , Lymphocytes [#/volume] in Bl ood by Automated countOrdered By: Claire Choi on 10-18-2023 Lymphocytes (Bld) [#/Vol] 2.5 10*3/uL Normal 1.00-4.8 [facility] Comment on above: Performed By: #### V BG #### Point of Care testing , Lymphocytes/100 leukocytes i n Blood by Automated countOrdered By: Claire Choi on 10-18-2023 Lymphocytes/100 WBC (Bld) 30.2 % Normal . [facility] Comment on above: Performed By: #### V BG #### Point of Care testing , MCH [Entitic mass] by Automa dominick countOrdered By: Claire Choi on 10-18-2023 MCH (RBC) [Entitic mass] 31.8 pg Normal 24.7-34.3 [facility] Comment on above: Performed By: #### V BG #### Point of Care testing , MCHC Auto (RBC) [Mass/Vol]Or dered By: Claire Choi on 10-18-2023 MCHC (RBC) [Mass/Vol] 32.8 g/dL 32.0-35.0 [facility] MCV [Entitic volume] by Auto mated countOrdered By: Claire Choi on 10-18-2023 MCV (RBC) [Entitic vol] 96.9 fL Normal 80-100 [facility] Comment on above: Performed By: #### V BG #### Point of Care testing , Neutrophils [#/volume] in Bl ood by Automated countOrdered By: Claire Choi on 10-18-2023 Neutrophils (Bld) [#/Vol] 4.9 10*3/uL Normal 1.8-7.7 [facility] Comment on above: Performed By: #### V BG #### Point of Care testing , No Panel InformationOrdered By: Claire Choi on 10-18-2023 Estimated GFR (CKD-EPI) 20.198 mL/Min [facility] Creatinine Clearance (Chem 20.65 [facility] Protein Electrophoresis M-Krystian Not observed g/dL Not Observed [facility] Protein Electrophoresis Note See comment . [facility] Comment on above: Protein electrophore sis scan will follow via computer,mail, or media assistant delivery. Serum Immunofixation See comment . [facility] Comment on above: No monoclonality det ected. Nucleated erythrocytes [Pres ence] in Blood by Automated countOrdered By: Claire Choi on 10-18-2023 Nucleated RBC Auto Ql (Bld) 0.1 /100{WBC} 0-0.5 [facility] Platelet mean volume [Entiti c volume] in Blood by Automated countOrdered By: Claire Choi on 10-18-2023 Platelet mean volume (Bld) [Entitic vol] 9.8 fL Normal 6.3-10.7 [facility] Comment on above: Performed By: #### V BG #### Point of Care testing , Platelets [#/volume] in Bloo d by Automated countOrdered By: Claire Choi on 10-18-2023 Platelets (Bld) [#/Vol] 199 10*3/uL Normal 150-450 [facility] Comment on above: Performed By: #### V BG #### Point of Care testing , Potassium [Moles/volume] in Serum or PlasmaOrdered By: Claire Choi on 10-18-2023 Potassium [Moles/Vol] 4.9 mmol/L Normal 3.5-5.1 [facility] Comment on above: Performed By: #### V BG #### Point of Care testing , Protein Electrophoresis, Ser umon 10-18-2023 [id number] 0.2 g/dL Normal 0.0-0.4 [facility] Comment on above: Performed By: #### V BG #### Point of Care testing , [id number] 0.9 g/dL Normal 0.4-1.0 [facility] Comment on above: Performed By: #### V BG #### Point of Care testing , Beta Globulin 0.9 g/dL Normal 0.7-1.3 [facility] Comment on above: Performed By: #### V BG #### Point of Care testing , Gamma Globulin 0.8 g/dL Normal 0.4-1.8 [facility] Comment on above: Performed By: #### V BG #### Point of Care testing , M-Krystian Not Observed Normal Not Observed [facility] Comment on above: Performed By: #### V BG #### Point of Care testing , SPE-Note Normal . [facility] Comment on above: Result Comment: Prot ein electrophoresis scan will follow via computer, mail, or media assistant delivery. Performed By: #### V BG #### Point of Care testing , Protein [Mass/volume] in Ser um or PlasmaOrdered By: Claire Choi on 10-18-2023 Protein [Mass/Vol] 6.3 g/dL Low 6.4-8.9 [facility] Comment on above: Performed By: #### V BG #### Point of Care testing , Protein [Mass/Vol] 6.4 g/dL Normal 6.0-8.5 [facility] Comment on above: Performed By: #### V BG #### Point of Care testing , Serum globulin measurement ( mass/volume)Ordered By: Claire Choi on 10-18-2023 Globulin (S) [Mass/Vol] 2.8 g/dL Normal 2.2-3.[address] [facility] Comment on above: Performed By: #### V BG #### Point of Care testing , Serum globulin measurement b y calculation (mass/volume)Ordered By: Claire Choi on 10-18-2023 Globulin (S) [Mass/Vol] 2.5 g/dL Normal F [facility] Comment on above: Performed By: #### V BG #### Point of Care testing , Serum or plasma albumin/glob ulin mass ratioOrdered By: Claire Choi on 10-18-2023 Albumin/Globulin [Mass ratio] 1.5 {ratio} Normal [facility] Comment on above: Performed By: #### V BG #### Point of Care testing , Albumin/Globulin [Mass ratio] 1.3 {ratio} Normal 0.7-1.7 [facility] Comment on above: Performed By: #### V BG #### Point of Care testing , Serum or plasma alpha 1 glob ulin measurement by electrophoresis (mass/volume)Ordered By: Claire Choi on 10-18-2023 Alpha 1 globulin Elph [Mass/Vol] 0.2 g/dL 0.0-0.4 [facility] Serum or plasma alpha 2 glob ulin measurement by electrophoresis (mass/volume)Ordered By: Claire Choi on 10-18-2023 Alpha 2 globulin Elph [Mass/Vol] 0.9 g/dL 0.4-1.0 [facility] Serum or plasma anion gap de terminationOrdered By: Claire Choi on 10-18-2023 Anion gap [Moles/Vol] 10.7 mmol/L Normal 6.0-15.0 [facility] Comment on above: Performed By: #### V BG #### Point of Care testing , Serum or plasma beta globuli n measurement by electrophoresis (mass/volume)Ordered By: Claire Choi on 10-18-2023 Beta globulin Elph [Mass/Vol] 0.9 g/dL 0.7-1.3 [facility] Serum or plasma gamma globul in measurement by electrophoresis (mass/volume)Ordered By: Claire Choi on 10-18-2023 Gamma globulin Elph [Mass/Vol] 0.8 g/dL 0.4-1.8 [facility] Sodium [Moles/volume] in Ser um or PlasmaOrdered By: Claire Choi on 10-18-2023 Sodium [Moles/Vol] 138 mmol/L Normal 136-145 [facility] Comment on above: Performed By: #### V BG #### Point of Care testing , Urea nitrogen [Mass/volume] in Serum or PlasmaOrdered By: Claire Choi on 10-18-2023 Urea nitrogen [Mass/Vol] 35 mg/dL High 7-25 [facility] Comment on above: Performed By: #### V BG #### Point of Care testing , ECG 12 Leadon 10-04-2023 Normal sinus rhythm [facility] Work Phone: Automated erythrocytes count in urine sediment (number/area)Ordered By: Claire Choi on 07-19-2023 RBC Auto (Urine sed) [#/Area] 0-1 [HPF] 0-4 [facility] Automated leukocytes count i n urine sediment (number/area)Ordered By: Claire Choi on 07-19-2023 WBC Auto (Urine sed) [#/Area] 0-1 [HPF] 0-4 [facility] Bilirubin Test strip Ql (U)O rdered By: Claire Choi on 07-19-2023 Bilirubin Ql (U) Negative Negative [facility] Color Auto (U)Ordered By: Reynaldo Choi on 07-19-2023 Color (U) Yellow Yellow [facility] Ketones Auto test strip (U) [Mass/Vol]Ordered By: Claire Choi on 07-19-2023 Ketones (U) [Mass/Vol] Negative Negative Fi [facility] Laboratory - UrinalysisOrder ed By: Claire Choi on 07-19-2023 Hyaline casts LM Ql (Urine sed) None seen [LPF] 0-8 [facility] Nitrite Test strip Ql (U)Ord ered By: Claire Choi on 07-19-2023 Nitrite Ql (U) Negative Negative [facility] Protein Auto test strip (U) [Mass/Vol]Ordered By: Claire Choi on 07-19-2023 Protein (U) [Mass/Vol] 100 mg/dL High Negative [facility] Specific gravity Auto test s trip (U) [Rel density]Ordered By: Claire Choi on 07-19-2023 Specific gravity (U) [Rel density] 1.018 1.001-1.03 0 [facility] Squamous epithelial cells de tection in urine sediment by light microscopyOrdered By: Claire Choi on 07-19-2023 Epithelial cells.squamous LM Ql (Urine sed) 0-1 [HPF] 0-2 [facility] Urine bacteria detection by automated methodOrdered By: Claire Choi on 07-19-2023 Bacteria Auto Ql (U) None seen None Seen [facility] Urine clarity by refractomet ry automatedOrdered By: Claire Choi on 07-19-2023 Clarity Refractometry automated (U) Clear Clear [facility] Urine glucose measurement by automated test strip (mass/volume)Ordered By: Claire Choi on 07-19-2023 Glucose Auto test strip (U) [Mass/Vol] Normal mg/dL Normal [facility] Urine hemoglobin detection b y automated test stripOrdered By: Claire Choi on 07-19-2023 Hemoglobin Auto test strip Ql (U) Negative Negative [facility] Urine leukocyte esterase det ection by automated test stripOrdered By: Claire Choi on 07-19-2023 Leukocyte esterase Auto test strip Ql (U) Negative Negative [facility] Urobilinogen Auto test strip (U) [Mass/Vol]Ordered By: Claire Choi on 07-19-2023 Urobilinogen (U) [Mass/Vol] Normal mg/dL Normal [facility] pH Auto test strip (U)Ordere d By: Claire Choi on 07-19-2023 pH (U) 6.0 [pH] 5.0-9.0 [facility] Alanine aminotransferase [En zymatic activity/volume] in Serum or PlasmaOrdered By: Misti Connolly on 07-12-2023 ALT [Catalytic activity/Vol] 12 U/L 7-52 [facility] Albumin [Mass/volume] in Ser um or PlasmaOrdered By: Misti Connolly on 07-12-2023 Albumin [Mass/Vol] 3.5 g/dL 2.9-4.4 [facility] Albumin [Mass/volume] in Ser um or Plasma by Bromocresol green (BCG) dye binding methoOrdered By: Misti Connolly on 07-12-2023 Albumin BCG dye [Mass/Vol] 3.6 g/dL 3.5-5.7 [facility] Alkaline phosphatase [Enzyma tic activity/volume] in Serum or PlasmaOrdered By: Misti Connolly on 07-12-2023 ALP [Catalytic activity/Vol] 83 U/L 34-104 [facility] Aspartate aminotransferase [ Enzymatic activity/volume] in Serum or PlasmaOrdered By: Misti Connolly on 07-12-2023 AST [Catalytic activity/Vol] 14 U/L 13-39 [facility] Basophils Auto (Bld) [#/Vol] Ordered By: Misti Connolly on 07-12-2023 Basophils (Bld) [#/Vol] 0.0 10*3/uL 0.0-0.2 [facility] Basophils/100 WBC Auto (Bld) Ordered By: Misti Connolly on 07-12-2023 Basophils/100 WBC (Bld) 0.4 % . [facility] Bilirubin.total [Mass/volume ] in Serum or PlasmaOrdered By: Misti Connolly on 07-12-2023 Bilirubin [Mass/Vol] 0.4 mg/dL 0.3-1.0 [facility] Calcium [Mass/volume] in Ser um or PlasmaOrdered By: Misti Connolly on 08-29-2023 Calcium [Mass/Vol] 8.5 mg/dL 8.6-10.3 [facility] Carbon dioxide, total [Moles /volume] in Serum or PlasmaOrdered By: Misti Connolly on 07-12-2023 CO2 [Moles/Vol] 22.7 mmol/L 21.0-31.0 [facility] Chloride [Moles/volume] in S amanda or PlasmaOrdered By: Misti Connolly on 07-12-2023 Chloride [Moles/Vol] 111 mmol/L 98-107 [facility] Creatinine [Mass/volume] in Serum or PlasmaOrdered By: Misti Connolly on 07-12-2023 Creatinine [Mass/Vol] 2.50 mg/dL 0.60-1.20 [facility] Eosinophils Auto (Bld) [#/Vo l]Ordered By: Misti Connolly on 07-12-2023 Eosinophils (Bld) [#/Vol] 0.1 10*3/uL 0.0-0.45 [facility] Eosinophils/100 WBC Auto (Bl d)Ordered By: Misti Connolly on 07-12-2023 Eosinophils/100 WBC (Bld) 1.1 % . [facility] Erythrocyte distribution wid th Auto (RBC) [Ratio]Ordered By: Misti Connolly on 07-12-2023 Erythrocyte distribution width (RBC) [Ratio] 13.8 % 11.9-15.3 [facility] Glucose [Mass/volume] in Ser um or PlasmaOrdered By: Misti Connolly on 07-12-2023 Glucose [Mass/Vol] 119 mg/dL 70-100 [facility] Comment on above: ADA recommended refe rence range Glucose mean value [Mass/vol ume] in Blood Estimated from glycated hemoglobinOrdered By: Misti Connolly on 07-12-2023 Average glucose Estimated from glycated hemoglobin (Bld) [Mass/Vol] 174 mg/dL [facility] Hematocrit Auto (Bld) [Volum e fraction]Ordered By: Misti Connolly on 07-12-2023 Hematocrit (Bld) [Volume fraction] 36.0 % 34.0-46.4 [facility] Hemoglobin [Mass/volume] in BloodOrdered By: Misti Connolly on 07-12-2023 Hemoglobin (Bld) [Mass/Vol] 12.0 g/dL 11.8-15.4 [facility] Immunoglobulin light chains. kappa.free [Mass/volume] in SerumOrdered By: Misti Connolly on 07-12-2023 Immunoglobulin light chains.kappa.free (S) [Mass/Vol] 40.5 mg/L 3.3-19.4 [facility] Immunoglobulin light chains. kappa.free/Immunoglobulin light chains.lambda.free [MassOrdered By: Misti Connolly on 07-12-2023 Immunoglobulin light chains.kappa.free/Immuno globulin light chains.lambda.free (S) [Mass ratio] 1.75 0.26-1.65 [facility] Comment on above: Performed at: [address] [id number] Director: Elpidio Delgado PhD, Phone: [phone] Immunoglobulin light chains. lambda.free [Mass/volume] in Serum or PlasmaOrdered By: Misti Connolly on 07-12-2023 Immunoglobulin light chains.lambda.free [Mass/Vol] 23.2 mg/L 5.7-26.3 [facility] Laboratory - Hematology and Cell countsOrdered By: Misti Connolly on 07-12-2023 HbA1c (Bld) [Mass fraction] 7.7 % High 4.3-5.6 [facility] Comment on above: Increased risk for d iabetes: 5.7 - 6.4diabetes: >6.4glycemic control for adults with diabetes: <7.0 Leukocytes [#/volume] correc dominick for nucleated erythrocytes in Blood by Automated counOrdered By: Misti Connolly on 07-12-2023 WBC corrected for nucl RBC Auto (Bld) [#/Vol] 7.3 10*3/uL 3.8-11.6 [facility] Lymphocytes Auto (Bld) [#/Vo l]Ordered By: Misti Connolly on 07-12-2023 Lymphocytes (Bld) [#/Vol] 2.4 10*3/uL 1.00-4.8 [facility] Lymphocytes/100 WBC Auto (Bl d)Ordered By: Misti Connolly on 07-12-2023 Lymphocytes/100 WBC (Bld) 33.7 % . [facility] MCH Auto (RBC) [Entitic mass ]Ordered By: Misti Connolly on 07-12-2023 MCH (RBC) [Entitic mass] 31.5 pg 24.7-34.3 [facility] MCHC Auto (RBC) [Mass/Vol]Or dered By: Misti Connolly on 07-12-2023 MCHC (RBC) [Mass/Vol] 33.2 g/dL 32.0-35.0 [facility] MCV Auto (RBC) [Entitic vol] Ordered By: Misti Connolly on 07-12-2023 MCV (RBC) [Entitic vol] 95.0 fL 80-100 [facility] Monocytes Auto (Bld) [#/Vol] Ordered By: Misti Connolly on 07-12-2023 Monocytes (Bld) [#/Vol] 0.5 10*3/uL 0.0-0.8 [facility] Monocytes/100 WBC Auto (Bld) Ordered By: Misti Connolly on 07-12-2023 Monocytes/100 WBC (Bld) 6.2 % . [facility] Neutrophils Auto (Bld) [#/Vo l]Ordered By: Misti Connolly on 07-12-2023 Neutrophils (Bld) [#/Vol] 4.3 10*3/uL 1.8-7.7 [facility] Neutrophils/100 WBC Auto (Bl d)Ordered By: Misti Connolly on 07-12-2023 Neutrophils/100 WBC (Bld) 58.6 % . [facility] No Panel InformationOrdered By: Misti Connolly on 07-12-2023 Estimated GFR (CKD-EPI) 18.848 mL/Min [facility] Creatinine Clearance (Chem 19.74 [facility] Protein Electrophoresis M-Krystian Not observed g/dL Not Observed [facility] Protein Electrophoresis Note See comment . [facility] Comment on above: Protein electrophore sis scan will follow via computer,mail, or media assistant delivery.Performed at: [address] [id number] Director: Elpidio Delgado PhD, Phone: [phone] Nucleated erythrocytes [Pres ence] in Blood by Automated countOrdered By: Misti Connolly on 07-12-2023 Nucleated RBC Auto Ql (Bld) 0.1 /100{WBC} 0-0.5 [facility] Platelet mean volume Auto (B ld) [Entitic vol]Ordered By: Misti Connolly on 07-12-2023 Platelet mean volume (Bld) [Entitic vol] 9.5 fL 6.3-10.7 [facility] Platelets Auto (Bld) [#/Vol] Ordered By: Misti Connolly on 07-12-2023 Platelets (Bld) [#/Vol] 198 10*3/uL 150-450 [facility] Potassium [Moles/volume] in Serum or PlasmaOrdered By: Misti Connolly on 07-12-2023 Potassium [Moles/Vol] 4.5 mmol/L 3.5-5.1 [facility] Protein [Mass/volume] in Ser um or PlasmaOrdered By: Misti Connolly on 07-12-2023 Protein [Mass/Vol] 6.3 g/dL 6.4-8.9 [facility] Protein [Mass/Vol] 6.2 g/dL 6.0-8.5 [facility] RBC Auto (Bld) [#/Vol]Ordere d By: Misti Connolly on 07-12-2023 RBC (Bld) [#/Vol] 3.79 10*6/uL 3.60-5.00 [facility] Serum globulin measurement b y calculation (mass/volume)Ordered By: Misti Connolly on 07-12-2023 Globulin (S) [Mass/Vol] 2.7 g/dL 2.2-3.9 [facility] Serum or plasma albumin/glob ulin mass ratioOrdered By: Misti Connolly on 07-12-2023 Albumin/Globulin [Mass ratio] 1.3 {ratio} 0.7-1.7 [facility] Serum or plasma alpha 1 glob ulin measurement by electrophoresis (mass/volume)Ordered By: Misti Connolly on 07-12-2023 Alpha 1 globulin Elph [Mass/Vol] 0.1 g/dL 0.0-0.4 [facility] Serum or plasma alpha 2 glob ulin measurement by electrophoresis (mass/volume)Ordered By: Misti Connolly on 07-12-2023 Alpha 2 globulin Elph [Mass/Vol] 1.0 g/dL 0.4-1.0 [facility] Serum or plasma anion gap de terminationOrdered By: Misti Connolly on 07-12-2023 Anion gap [Moles/Vol] 10.8 mmol/L 6.0-15.0 [facility] Serum or plasma beta globuli n measurement by electrophoresis (mass/volume)Ordered By: Misti Connolly on 07-12-2023 Beta globulin Elph [Mass/Vol] 0.9 g/dL 0.7-1.3 [facility] Serum or plasma gamma globul in measurement by electrophoresis (mass/volume)Ordered By: Misti Connolly on 07-12-2023 Gamma globulin Elph [Mass/Vol] 0.6 g/dL 0.4-1.8 [facility] Sodium [Moles/volume] in Ser um or PlasmaOrdered By: Misti Connolly on 07-12-2023 Sodium [Moles/Vol] 140 mmol/L 136-145 [facility] Urea nitrogen [Mass/volume] in Serum or PlasmaOrdered By: Misti Connolly on 07-12-2023 Urea nitrogen [Mass/Vol] 33 mg/dL 7-25 [facility] WBC Auto (Bld) [#/Vol]Ordere d By: Misti Connolly on 07-12-2023 WBC (Bld) [#/Vol] 7.3 10*3/uL 3.8-11.6 [facility] Office Visit (Cardiology)on 03-23-2023 Follow-up [...] Weight Tips; Status:Complete - Retrospective Authorization; Done: [id number] Some eating tips that can help you lose weight.; Status:Complete - Retrospective Authorization; Done: [id number] SocHx: Never a smoker Tobacco Use Screening; Status:Complete; Done: [id number] Patient Instructions Please bring all medicines, vitamins, [...] recurrence. She did have noninvasive assessment at [facility], which was negative. Couple of years ago. [...] Screening.on 023 Adult depression screening assessment No [facility] [employer] [address] DO Work Phone: Fall risk assessment a) No falls within the last year [facility] [employer] DO Work Phone: Tobacco use status [facility] b) No M Located [facility] [employer] DO Work Phone: Operative Reporton 3 Operative Report [id number]:12 7 Normal [facility] LIPID PROFILEon 02-21-2023 CHOL-HDL RATIO NORM SEE BELOW Normal [facility] Comment on above: Result Comment: 3.3 - 4.4 LOW RISK 4.4 - 7.1 AVERAGE RISK 7.1 - 11.0 MODERATE RISK >11.0 HIGH RISK Performed By: #### H H #### [facility] [address] [address] [address] Richa Cheema Cholesterol [Mass/Vol] 173 mg/dL Normal <=200 Th [facility] Comment on above: Performed By: #### H H #### [facility] [address] [address] [address] Richa Cheema Cholesterol in HDL [Mass/Vol] 63 mg/dL Critically high 40-60 [facility] Comment on above: Performed By: #### H H #### [facility] [address] [address] [address] Richa Cheema Cholesterol in LDL [Mass/Vol] 75.6 mg/dL Normal [facility] Comment on above: Performed By: #### H H #### [facility] [address] [address] [address] Richa Cheema Cholesterol.total/Choles terol in HDL [Mass ratio] 2.7 {ratio} Normal [facility] Comment on above: Performed By: #### H H #### [facility] [address] [address] [address] Richa Cheema HDL NORMAL > or = 60 mg/dl - LO W CARDIOVASCULAR RISK <40 mg/dl - HIGH CARDIOVASCULAR RISK Normal [facility] Comment on above: Performed By: #### H H #### [facility] [address] [address] [address] Richa Cheema LDL CALC NORMAL SEE BELOW Normal [facility] Comment on above: Result Comment: <100 mg/dl OPTIMAL 100 - 129 mg/dl NEAR OR ABOVE OPTIMAL 130 - 159 mg/dl BORDERLINE HIGH 160 - 189 mg/dl HIGH >190 mg/dl VERY HIGH Performed By: #### H H #### [facility] [address] [address] [address] Richa Cheema Triglyceride [Mass/Vol] 172 mg/dL Critically high <=150 [facility] Comment on above: Performed By: #### H H #### [facility] Laboratory [address] [place] [address] Dr. Richa Cheema VLDL CALC 34.4 mg/dL Normal [facility] Comment on above: Performed By: #### H H #### [facility] [address] [place] [address] Dr. Richa Cheema PROF CHEM 8 (BAS METB)on Anion gap [Moles/Vol] 13.2 mmol/L Normal [facility] Comment on above: Performed By: #### H H #### [facility] [address] [place] [address] Dr. Richa Cheema Calcium [Mass/Vol] 8.8 mg/dL Normal 8.5-10.1 [facility] Comment on above: Performed By: #### H H #### [facility] [address] [place] [address] Dr. Richa Cheema Chloride [Moles/Vol] 108 mmol/L Critically high 98-107 [facility] Comment on above: Performed By: #### H H #### [facility] [address] [place] [address] Dr. Richa Cheema CO2 [Moles/Vol] 25.7 mmol/L Normal 21.0-32.0 [facility] Comment on above: Performed By: #### H H #### [facility] [address] [address] [address] Richa Cheema Creatinine [Mass/Vol] 2.30 mg/dL Critically high 0.55-1.02 [facility] Comment on above: Performed By: #### H H #### [facility] [address] [address] [address] Richa Cheema EGFR-AF GREEK 25 mL/min/1.73m2 Critically low >=60 [facility] Comment on above: Performed By: #### H H #### [facility] [address] [address] [address] Richa Cheema EGFR-NON AF GREEK 20 mL/min/1.73m2 Critically low >=60 [facility] Comment on above: Performed By: #### H H #### [facility] [address] [place] [address] Dr. Richa Cheema Glucose [Mass/Vol] 139 mg/dL Critically high 74-106 [facility] Comment on above: Performed By: #### H H #### [facility] [address] [place] [address] Dr. Richa Cheema Potassium [Moles/Vol] 4.9 mmol/L Normal 3.5-5.1 [facility] Comment on above: Performed By: #### H H #### [facility] [address] [place] [address] Dr. Richa Cheema Sodium [Moles/Vol] 142 mmol/L Normal 136-145 [facility] Comment on above: Performed By: #### H H #### [facility] [address] [address] [address] Richa Cheema Urea nitrogen [Mass/Vol] 25.0 mg/dL Critically high 7.0-18 .0 [facility] Comment on above: Performed By: #### H H #### [facility] [address] [address] [address] Richa Cheema Urea nitrogen/Creatinine [Mass ratio] 10.9 mg/mg Normal [facility] Comment on above: Performed By: #### H H #### [facility] [address] [address] [address] Richa Cheema Maryn 02-21-2023 AST [Catalytic activity/Vol] 18 U/L Normal 15-37 [facility] Comment on above: Performed By: #### H H #### [facility] [address] [id number] Richa Cheema Belkis 02-21-2023 ALT [Catalytic activity/Vol] 18 U/L Normal 14-59 [facility] Comment on above: Performed By: #### H H #### [facility] [address] [id number] Richa Cheema Consent for Procedure/Surger yon 02-04-2023 Consent for Procedure/Surgery [id number] Normal [facility] XR BONE SURVEYon 01-07-2023 XR BONE SURVEY [...] IBANEZ Date: 2023-01-07 07:54 Normal [facility] XR KUB 1 VIEWon 01-06-2023 [...] DIANN IBANEZ Date: 2023-01-06 18:33 Normal [facility] Albumin [Mass/volume] in Ser um or PlasmaOrdered By: Claire Choi on 01-04-2023 Albumin [Mass/Vol] 3.6 g/dL 3.2-5.5 [facility] Alkaline phosphatase [Enzyma tic activity/volume] in Serum or PlasmaOrdered By: Claire Choi on 01-04-2023 ALP [Catalytic activity/Vol] 99 U/L 32-92 [facility] Aspartate aminotransferase [ Enzymatic activity/volume] in Serum or PlasmaOrdered By: Claire Choi on 01-04-2023 AST [Catalytic activity/Vol] 14 U/L 10-42 [facility] Basophils Auto (Bld) [#/Vol] Ordered By: Claire Choi on 01-04-2023 Basophils (Bld) [#/Vol] 0.1 10*3/uL 0.0-0.2 [facility] Basophils/100 WBC Auto (Bld) Ordered By: Claire Choi on 01-04-2023 Basophils/100 WBC (Bld) 0.8 % . [facility] Bilirubin.total [Mass/volume ] in Serum or PlasmaOrdered By: Claire Choi on 01-04-2023 Bilirubin [Mass/Vol] 0.6 mg/dL 0.3-1.2 [facility] Calcium [Mass/volume] in Ser um or PlasmaOrdered By: Claire Choi on 01-04-2023 Calcium [Mass/Vol] 8.7 mg/dL 8.2-10.2 [facility] Carbon dioxide, total [Moles /volume] in Serum or PlasmaOrdered By: Claire Choi on 01-04-2023 CO2 [Moles/Vol] 21.9 mmol/L 22.0-30.0 [facility] Chloride [Moles/volume] in S amanda or PlasmaOrdered By: Claire Choi on 01-04-2023 Chloride [Moles/Vol] 108 mmol/L 95-114 [facility] Creatinine and Glomerular fi ltration rate.predicted panel (S/P/Bld)Ordered By: Claire Choi on 01-04-2023 Creatinine [Mass/Vol] 2.48 mg/dL 0.44-1.03 [facility] Eosinophils Auto (Bld) [#/Vo l]Ordered By: Claire Choi on 01-04-2023 Eosinophils (Bld) [#/Vol] 0.2 10*3/uL 0.0-0.45 [facility] Eosinophils/100 WBC Auto (Bl d)Ordered By: Claire Choi on 01-04-2023 Eosinophils/100 WBC (Bld) 2.3 % . [facility] Erythrocyte distribution wid th Auto (RBC) [Ratio]Ordered By: Claire Choi on 01-04-2023 Erythrocyte distribution width (RBC) [Ratio] 13.2 % 11.9-15.3 [facility] Estimated glomerular filtrat ion rate (GFR) non- AmericanOrdered By: Claire Choi on 01-04-2023 GFR/1.73 sq M.predicted among non-blacks MDRD (S/P/Bld) [Vol rate/Area] 19 mL/Min [facility] Globulin Calc (S) [Mass/Vol] Ordered By: Claire Choi on 01-04-2023 Globulin (S) [Mass/Vol] 2.5 g/dL [facility] Glucose [Mass/volume] in Ser um or PlasmaOrdered By: Claire Choi on 01-04-2023 Glucose [Mass/Vol] 144 mg/dL 70-100 [facility] Comment on above: ADA recommended refe rence rangeRandom Glucose Reference Range is dependent on time and content of last meal. Glucose of more than 200 mg/dL in a nonstressed, ambulatory subject supports the diagnosis of Diabetes Mellitus. Hematocrit Auto (Bld) [Volum e fraction]Ordered By: Claire Choi on 01-04-2023 Hematocrit (Bld) [Volume fraction] 38.4 % 34.0-46.4 [facility] Hemoglobin [Mass/volume] in BloodOrdered By: Claire Choi on 01-04-2023 Hemoglobin (Bld) [Mass/Vol] 12.7 g/dL 11.8-15.4 [facility] Immunoglobulin light chains. kappa.free [Mass/volume] in SerumOrdered By: Claire Choi on 01-04-2023 Immunoglobulin light chains.kappa.free (S) [Mass/Vol] 26.9 mg/L 3.3-19.4 [facility] Immunoglobulin light chains. kappa.free/Immunoglobulin light chains.lambda.free [MassOrdered By: Claire Choi on 01-04-2023 Immunoglobulin light chains.kappa.free/Immuno globulin light chains.lambda.free (S) [Mass ratio] 2.24 0.26-1.65 [facility] Comment on above: Performed at: [address] [id number] Director: Elpidio Delgado PhD, Phone: [phone] Immunoglobulin light chains. lambda.free [Mass/volume] in Serum or PlasmaOrdered By: Claire Choi on 01-04-2023 Immunoglobulin light chains.lambda.free [Mass/Vol] 12.0 mg/L 5.7-26.3 [facility] Leukocytes [#/volume] correc dominick for nucleated erythrocytes in Blood by Automated counOrdered By: Claire Choi on 01-04-2023 WBC corrected for nucl RBC Auto (Bld) [#/Vol] 8.9 10*3/uL 3.8-11.6 [facility] Lymphocytes Auto (Bld) [#/Vo l]Ordered By: Claire Choi on 01-04-2023 Lymphocytes (Bld) [#/Vol] 3.0 10*3/uL 1.00-4.8 [facility] Lymphocytes/100 WBC Auto (Bl d)Ordered By: Claire Choi on 01-04-2023 Lymphocytes/100 WBC (Bld) 34.1 % . [facility] MCH Auto (RBC) [Entitic mass ]Ordered By: Claire Choi on 01-04-2023 MCH (RBC) [Entitic mass] 31.4 pg 24.7-34.3 [facility] MCHC Auto (RBC) [Mass/Vol]Or dered By: Claire Choi on 01-04-2023 MCHC (RBC) [Mass/Vol] 33.0 g/dL 32.0-35.0 [facility] MCV Auto (RBC) [Entitic vol] Ordered By: Claire Choi on 01-04-2023 MCV (RBC) [Entitic vol] 95.1 fL 80-100 [facility] Monocytes Auto (Bld) [#/Vol] Ordered By: Claire Choi on 01-04-2023 Monocytes (Bld) [#/Vol] 0.7 10*3/uL 0.0-0.8 [facility] Monocytes/100 WBC Auto (Bld) Ordered By: Claire Choi on 01-04-2023 Monocytes/100 WBC (Bld) 8.0 % . [facility] Neutrophils Auto (Bld) [#/Vo l]Ordered By: Claire Choi on 01-04-2023 Neutrophils (Bld) [#/Vol] 4.9 10*3/uL 1.8-7.7 [facility] Neutrophils/100 WBC Auto (Bl d)Ordered By: Claire Choi on 01-04-2023 Neutrophils/100 WBC (Bld) 54.8 % . [facility] No Panel InformationOrdered By: Claire Choi on 01-04-2023 Estimated GFR () 23 mL/Min [facility] Comment on above: GFR estimated refere nce range: According to KDOQI guidelines, <60 ml/min/1.73m2 is sufficient to diagnose a patient with chronic kidney disease. Pharmacy Creatinine Clearance (Chem 19.82 [facility] Nucleated erythrocytes [Pres ence] in Blood by Automated countOrdered By: Claire Choi on 01-04-2023 Nucleated RBC Auto Ql (Bld) 0.0 /100{WBC} 0-0.5 [facility] Platelet mean volume Auto (B ld) [Entitic vol]Ordered By: Claire Choi on 01-04-2023 Platelet mean volume (Bld) [Entitic vol] 9.6 fL 6.3-10.7 [facility] Platelets Auto (Bld) [#/Vol] Ordered By: Claire Choi on 01-04-2023 Platelets (Bld) [#/Vol] 210 10*3/uL 150-450 [facility] Potassium [Moles/volume] in Serum or PlasmaOrdered By: Claire Choi on 01-04-2023 Potassium [Moles/Vol] 4.3 mmol/L 3.5-5.1 [facility] Protein [Mass/volume] in Ser um or PlasmaOrdered By: Claire Choi on 01-04-2023 Protein [Mass/Vol] 6.1 g/dL 6.1-7.9 [facility] RBC Auto (Bld) [#/Vol]Ordere d By: Claire Choi on 01-04-2023 RBC (Bld) [#/Vol] 4.04 10*6/uL 3.60-5.00 [facility] Serum or plasma alanine genao otransferase measurement without P-5'-P (enzymatic activiOrdered By: Claire Choi on 01-04-2023 ALT No additional P-5'-P [Catalytic activity/Vol] 14 U/L 10-60 [facility] Serum or plasma albumin/glob ulin mass ratioOrdered By: Claire Choi on 01-04-2023 Albumin/Globulin [Mass ratio] 1.4 {ratio} [facility] Serum or plasma anion gap de terminationOrdered By: Claire Choi on 01-04-2023 Anion gap [Moles/Vol] 11.4 mmol/L 6.0-15.0 [facility] Sodium [Moles/volume] in Ser um or PlasmaOrdered By: Claire Choi on 01-04-2023 Sodium [Moles/Vol] 137 mmol/L 136-146 [facility] Urea nitrogen [Mass/volume] in Serum or PlasmaOrdered By: Claire Choi on 01-04-2023 Urea nitrogen [Mass/Vol] 33 mg/dL 9 [facility] WBC Auto (Bld) [#/Vol]Ordere d By: Claire Choi on 01-04-2023 WBC (Bld) [#/Vol] 8.9 10*3/uL 3.8-11.6 [facility] PTH INTACTon 12-15-2022 PTH, Intact 79 pg/mL Critically high 15-65 [facility] Comment on above: Performed By: #### M G, RENAL, URIC #### [facility] [address] [place] [address] Dr. Richa Cheema HEMOGRAM AND PLATELon 2022 Hematocrit (Bld) [Volume fraction] 40.4 % Normal 36.0-48.0 [facility] Comment on above: Performed By: #### H H #### [facility] [address] [address] [address] Richa Cheema Hemoglobin (Bld) [Mass/Vol] 13.5 g/dL Normal 12.0-16.0 [facility] Comment on above: Performed By: #### H H #### [facility] [address] [address] [address] Richa Cheema MCH (RBC) [Entitic mass] 31.7 pg Normal 26.7-34.0 [facility] Comment on above: Performed By: #### H H #### [facility] [address] [place] [address] Dr. Richa Cheema MCHC (RBC) [Mass/Vol] 33.4 g/dL Normal 29.9-35.2 [facility] Comment on above: Performed By: #### H H #### [facility] [address] [place] [address] Dr. Richa Cheema MCV (RBC) [Entitic vol] 94.8 fL Normal 81.0-99.0 [facility] Comment on above: Performed By: #### H H #### [facility] [address] [place] [address] Dr. Richa Cheema PLT 218 103/ul Normal 150-450 [facility] Comment on above: Performed By: #### H H #### [facility] [address] [place] [address] Dr. Richa Cheema RBC 4.26 106/ul Normal 4.20-5.40 [facility] Comment on above: Performed By: #### H H #### [facility] [address] [place] [address] Dr. Richa Cheema WBC 8.7 103/ul Normal 4.0-11.0 [facility] Comment on above: Performed By: #### H H #### [facility] [address] [place] [address] Dr. Richa Cheema MAGNESIUMon 12-14-2022 Magnesium [Mass/Vol] 2.0 mg/dL Normal 1.8-2.4 [facility] Comment on above: Performed By: #### M G, RENAL, URIC #### [facility] [address] [place] [address] Dr. Richa Cheema RENAL FUNCTION PANELon 12-14 Albumin [Mass/Vol] 3.4 g/dL Normal 3.4-5.0 [facility] Comment on above: Performed By: #### M G, RENAL, URIC #### [facility] [address] [place] [address] Dr. Richa Cheema Calcium [Mass/Vol] 8.6 mg/dL Normal 8.5-10.1 [facility] Comment on above: Performed By: #### M G, RENAL, URIC #### [facility] [address] [address] [address] Richa Cheema Chloride [Moles/Vol] 104 mmol/L Normal 98-107 [facility] Comment on above: Performed By: #### M G, RENAL, URIC #### [facility] [address] [place] [address] Dr. Richa Cheema CO2 [Moles/Vol] 29.7 mmol/L Normal 21.0-32.0 [facility] Comment on above: Performed By: #### M G, RENAL, URIC #### [facility] [address] [place] [address] Dr. Richa Cheema Creatinine [Mass/Vol] 2.29 mg/dL Critically high 0.55-1.02 [facility] Comment on above: Performed By: #### M G, RENAL, URIC #### [facility] [address] [place] [address] Dr. Richa Cheema EGFR-AF GREEK 25 mL/min/1.73m2 Critically low >=60 [facility] Comment on above: Performed By: #### M G, RENAL, URIC #### [facility] [address] [place] [address] Dr. Richa Cheema EGFR-NON AF GREEK 21 mL/min/1.73m2 Critically low >=60 [facility] Comment on above: Performed By: #### M G, RENAL, URIC #### [facility] [address] [place] [address] Dr. Richa Cheema Glucose [Mass/Vol] 133 mg/dL Critically high 74-106 [facility] Comment on above: Performed By: #### M G, RENAL, URIC #### [facility] [address] [place] [address] Dr. Richa Cheema Phosphate [Mass/Vol] 3.9 mg/dL Normal 2.6-4.7 [facility] Comment on above: Performed By: #### M G, RENAL, URIC #### [facility] [address] [place] [address] Dr. Richa Cheema Potassium [Moles/Vol] 4.4 mmol/L Normal 3.5-5.1 [facility] Comment on above: Performed By: #### M G, RENAL, URIC #### [facility] [address] [place] [address] Dr. Richa Cheema Sodium [Moles/Vol] 141 mmol/L Normal 136-145 [facility] Comment on above: Performed By: #### M G, RENAL, URIC #### [facility] [address] [place] [address] Dr. Richa Cheema Urea nitrogen [Mass/Vol] 30.0 mg/dL Critically high 7.0-18 .0 [facility] Comment on above: Performed By: #### M G, RENAL, URIC #### [facility] [address] [place] [address] Dr. Richa Cheema UA RANDOM W/MICROSCOPICon BACTERIA NONE SEEN Normal NONE SEEN [facility] Comment on above: Performed By: #### U AMIC #### [facility] [address] [place] [address] Dr. Richa Cheema Bilirubin Ql (U) Negative Normal NEGATIVE [facility] Comment on above: Performed By: #### U AMIC #### [facility] [address] [place] [address] Dr. Richa Cheema CAST NONE SEEN Normal NONE SEEN [facility] Comment on above: Performed By: #### U AMIC #### [facility] [address] [place] [address] Dr. Richa Cheema Clarity (U) CLEAR Normal CLEAR [facility] Comment on above: Performed By: #### U AMIC #### [facility] [address] [place] [address] Dr. Richa Cheema Color (U) LT. YELLOW Normal YELLOW [facility] Comment on above: Performed By: #### U AMIC #### [facility] [address] [place] [address] Dr. Richa Cheema Crystals LM Nom (Urine sed) NONE SEEN Normal NONE SEEN [facility] Comment on above: Performed By: #### U AMIC #### [facility] [address] [address] [address] Richa Cheema Epithelial cells LM Ql (Urine sed) RARE Normal NONE SEEN /RARE [facility] Comment on above: Performed By: #### U AMIC #### [facility] [address] [address] [address] Richa Cheema Glucose Ql (U) Negative Normal NEGATIVE [facility] Comment on above: Performed By: #### U AMIC #### [facility] [address] [address] [address] Richa Cheema Hemoglobin Ql (U) TRACE-INTACT Abnormal NEGATIVE [facility] Comment on above: Performed By: #### U AMIC #### [facility] [address] [place] [address] Dr. Richa Cheema Ketones Ql (U) Negative Normal NEGATIVE [facility] Comment on above: Performed By: #### U AMIC #### [facility] [address] [address] [address] Richa Cheema LEUKOCYTES Negative Normal NEGATIVE [facility] Comment on above: Performed By: #### U AMIC #### [facility] [address] [address] [address] Richa Cheema MUCOUS NONE SEEN Normal NONE SEEN [facility] Comment on above: Performed By: #### U AMIC #### [facility] [address] [address] [address] Richa Cheema Nitrite Ql (U) Negative Normal NEGATIVE [facility] Comment on above: Performed By: #### U AMIC #### [facility] [address] [address] [address] Richa Cheema pH (U) 8.0 [pH] Normal 5-9 [facility] Comment on above: Performed By: #### U AMIC #### [facility] [address] [place] [address] Dr. Richa Cheema RBC 0-2 Normal 0-2 [facility] Comment on above: Performed By: #### U AMIC #### [facility] [address] [address] [address] Richa Cheema SPEC GRAVITY 1.015 Normal 1.005-<=1. 025 [facility] Comment on above: Performed By: #### U AMIC #### [facility] [address] [place] [address] Dr. Richa Cheema UA PROTEIN 100 mg/dl Abnormal NEGATIVE/ TRACE [facility] Comment on above: Performed By: #### U AMIC #### [facility] [address] [place] [address] Dr. Richa Cheema Urobilinogen Qn (U) 0.2 {Marley'U}/dL Normal 0.2 - 1. 0 [facility] Comment on above: Performed By: #### U AMIC #### [facility] [address] [place] [address] Dr. Richa Cheema WBC NONE SEEN Normal NONE SEEN [facility] Comment on above: Performed By: #### U AMIC #### [facility] [address] [place] [address] Dr. Richa Cheema URIC ACID SERUMon 12-14-2022 Urate [Mass/Vol] 5.3 mg/dL Normal 2.6-6.0 [facility] Comment on above: Performed By: #### M G, RENAL, URIC #### [facility] [address] [place] [address] Dr. Richa Cheema URINE T PROTEIN CREAT RATIOo n 12-14-2022 Protein (U) [Mass/Vol] 113.5 mg/dL Critically high <=12.0 [facility] Comment on above: Performed By: #### M G, RENAL, URIC #### [facility] [address] [place] [address] Dr. Richa Cheema UR PROT CREAT RAT 1.55 Normal [facility] Comment on above: Performed By: #### M G, RENAL, URIC #### [facility] [address] [place] [address] Dr. Richa Cheema URINE CREAT 73.37 mg/dL Normal 20.00-300. 00 [facility] Comment on above: Performed By: #### M G, RENAL, URIC #### [facility] [address] [place], [place] [address] Dr. Richa Cheema VITAMIN D 25 OHon 12-14-2022 VIT D 25-OH 42.8 ng/mL Normal [facility] Comment on above: Performed By: #### H H #### [facility] [address] [place], [place] [address] Dr. Richa Cheema VIT D RANGES SEE BELOW Normal [facility] Comment on above: Result Comment: <20 ng/mL Vit D deficient 20 - <30 ng/mL Vit D insufficient 30 - 100 ng/mL Vit D sufficient >100 ng/mL Potential Toxicity Performed By: #### H H #### [facility] [address] [address] [address] Richa Cheema Albumin [Mass/volume] in Ser um or PlasmaOrdered By: Claire Choi on 10-04-2022 Albumin [Mass/Vol] 3.6 g/dL 2.9-4.4 [facility] - Hematology and Cell countsOrdered By: Claire Choi on 10-04-2022 Nucleated RBC/100 WBC (Bld) [Ratio] 0.1 % 0-0.5 [facility] No Panel InformationOrdered By: Claire Choi on 10-04-2022 Protein Electrophoresis M-Krystian Not observed g/dL Not Observed [facility] Protein Electrophoresis Note See comment . [facility] Comment on above: Protein electrophore sis scan will follow via computer,mail, or media assistant delivery.Performed at: [address] [id number] Director: Elpidio Delgado PhD, Phone: [phone] Protein [Mass/volume] in Ser um or PlasmaOrdered By: Claire Choi on 10-04-2022 Protein [Mass/Vol] 6.1 g/dL 6.0-8.5 [facility] Serum globulin measurement ( mass/volume)Ordered By: Claire Choi on 10-04-2022 Globulin (S) [Mass/Vol] 2.5 g/dL 2.2-3.[address] [facility] Serum or plasma albumin/glob ulin mass ratioOrdered By: Claire Choi on 10-04-2022 Albumin/Globulin [Mass ratio] 1.4 {ratio} 0.7-1.7 [facility] Serum or plasma alpha 1 glob ulin measurement by electrophoresis (mass/volume)Ordered By: Claire Choi on 10-04-2022 Alpha 1 globulin Elph [Mass/Vol] 0.2 g/dL 0.0-0.4 [facility] Serum or plasma alpha 2 glob ulin measurement by electrophoresis (mass/volume)Ordered By: Claire Choi on 10-04-2022 Alpha 2 globulin Elph [Mass/Vol] 0.9 g/dL 0.4-1.0 [facility] Serum or plasma beta globuli n measurement by electrophoresis (mass/volume)Ordered By: Claire Choi on 10-04-2022 Beta globulin Elph [Mass/Vol] 0.8 g/dL 0.7-1.3 [facility] Serum or plasma gamma globul in measurement by electrophoresis (mass/volume)Ordered By: Claire Choi on 10-04-2022 Gamma globulin Elph [Mass/Vol] 0.6 g/dL 0.4-1.8 [facility] Albumin [Mass/volume] in Ser um or PlasmaOrdered By: Claire Choi on 07-13-2022 Albumin [Mass/Vol] 3.4 g/dL 2.9-4.4 [facility] Immunoglobulin light chains. kappa.free [Mass/volume] in SerumOrdered By: Claire Choi on 07-13-2022 Immunoglobulin light chains.kappa.free (S) [Mass/Vol] 21.9 mg/L 3.3-19.4 [facility] Immunoglobulin light chains. kappa.free/Immunoglobulin light chains.lambda.free [MassOrdered By: Claire Choi on 07-13-2022 Immunoglobulin light chains.kappa.free/Immuno globulin light chains.lambda.free (S) [Mass ratio] 1.87 0.26-1.65 [facility] Comment on above: Performed at: [address] [id number] Timing Adjuster: Elpidio Delgado PhD, Phone: [phone] Immunoglobulin light chains. lambda.free [Mass/volume] in Serum or PlasmaOrdered By: Claire Choi on 07-13-2022 Immunoglobulin light chains.lambda.free [Mass/Vol] 11.7 mg/L 5.7-26.3 [facility] - Chemistry and C hemistry - challengeOrdered By: Claire Choi on 07-13-2022 Protein [Mass/Vol] 0.2 g/dL Not Observed [facility] No Panel InformationOrdered By: Claire Choi on 07-13-2022 Protein Electrophoresis Note See comment . [facility] Comment on above: Protein electrophore sis scan will follow via computer, mail, or media assistant delivery. Performed at: [facility] [id number] Timing Adjuster: Elpidio Delgado PhD, Phone: [phone] Protein [Mass/volume] in Ser um or PlasmaOrdered By: Claire Choi on 07-13-2022 Protein [Mass/Vol] 6.2 g/dL 6.0-8.5 [facility] Serum globulin measurement ( mass/volume)Ordered By: Claire Choi on 07-13-2022 Globulin (S) [Mass/Vol] 2.8 g/dL 2.2-3.[address] [facility] Serum or plasma albumin/glob ulin mass ratioOrdered By: Claire Choi on 07-13-2022 Albumin/Globulin [Mass ratio] 1.2 {ratio} 0.7-1.7 [facility] Serum or plasma alpha 1 glob ulin measurement by electrophoresis (mass/volume)Ordered By: Claire Choi on 07-13-2022 Alpha 1 globulin Elph [Mass/Vol] 0.2 g/dL 0.0-0.4 [facility] Serum or plasma alpha 2 glob ulin measurement by electrophoresis (mass/volume)Ordered By: Claire Choi on 07-13-2022 Alpha 2 globulin Elph [Mass/Vol] 0.9 g/dL 0.4-1.0 [facility] Serum or plasma beta globuli n measurement by electrophoresis (mass/volume)Ordered By: Claire Choi on 07-13-2022 Beta globulin Elph [Mass/Vol] 1.0 g/dL 0.7-1.3 [facility] Serum or plasma gamma globul in measurement by electrophoresis (mass/volume)Ordered By: Claire Choi on 07-13-2022 Gamma globulin Elph [Mass/Vol] 0.8 g/dL 0.4-1.8 [facility] CBC AUTO DIFFon 07-12-2022 BASO # 0.0 103/ul Normal 0.0-0.1 [facility] Comment on above: Performed By: #### M G, RENAL, URIC #### [facility] [address] [place] [address] Dr. Richa Cheema Basophils/100 WBC (Bld) 0.2 % Normal 0.2-2.0 [facility] Comment on above: Performed By: #### M G, RENAL, URIC #### [facility] [address] [place] [address] Dr. Richa Cheema EO # 0.1 103/ul Normal 0.0-0.7 [facility] Comment on above: Performed By: #### M G, RENAL, URIC #### [facility] [address] [place] [address] Dr. Richa Cheema Eosinophils/100 WBC (Bld) 1.5 % Normal 0.9-7.0 [facility] Comment on above: Performed By: #### M G, RENAL, URIC #### [facility] [address] [place] [address] Dr. Richa Cheema Erythrocyte distribution width (RBC) [Ratio] 13.8 % Normal 11.0-15.0 [facility] Comment on above: Performed By: #### M G, RENAL, URIC #### [facility] [address] [place] [address] Dr. Richa Cheema Hematocrit (Bld) [Volume fraction] 38.4 % Normal 36.0-48.0 [facility] Comment on above: Performed By: #### M G, RENAL, URIC #### [facility] [address] [place] [address] Dr. Richa Cheema Hemoglobin (Bld) [Mass/Vol] 13.0 g/dL Normal 12.0-16.0 [facility] Comment on above: Performed By: #### M G, RENAL, URIC #### [facility] [address] [address] [address] Richa Cheema IG # 0.01 10e3/ul Normal 0.00-0.03 [facility] Comment on above: Performed By: #### M G, RENAL, URIC #### [facility] [address] [address] [address] Richa Cheema IG % 0.1 % Normal 0.0-0.5 [facility] Comment on above: Performed By: #### M G, RENAL, URIC #### [facility] [address] [place] [address] Dr. Richa Cheema LYMPH # 3.5 103/ul Normal 1.2-3.8 [facility] Comment on above: Performed By: #### M G, RENAL, URIC #### [facility] [address] [place] [address] Dr. Richa Cheema Lymphocytes/100 WBC (Bld) 42.4 % Normal 20.5-60.0 [facility] Comment on above: Performed By: #### M G, RENAL, URIC #### [facility] [address] [place] [address] Dr. Richa Cheema MANUAL DIFF REQ NO Normal [facility] Comment on above: Performed By: #### M G, RENAL, URIC #### [facility] [address] [place] [address] Dr. Richa Cheema MCH (RBC) [Entitic mass] 31.8 pg Normal 26.7-34.0 [facility] Comment on above: Performed By: #### M G, RENAL, URIC #### [facility] [address] [place] [address] Dr. Richa Cheema MCHC (RBC) [Mass/Vol] 33.9 g/dL Normal 29.9-35.2 [facility] Comment on above: Performed By: #### M G, RENAL, URIC #### [facility] [address] [place] [address] Dr. Richa Cheema MCV (RBC) [Entitic vol] 93.9 fL Normal 81.0-99.0 [facility] Comment on above: Performed By: #### M G, RENAL, URIC #### [facility] [address] [place] [address] Dr. Richa Cheema MONO # 0.5 103/ul Normal 0.3-0.8 [facility] Comment on above: Performed By: #### M G, RENAL, URIC #### [facility] [address] [place] [address] Dr. Richa Cheema Monocytes/100 WBC (Bld) 6.6 % Normal 1.7-12.0 [facility] Comment on above: Performed By: #### M G, RENAL, URIC #### [facility] [address] [place] [address] Dr. Richa Cheema NEUT # 4.0 103/ul Normal 1.4-6.5 [facility] Comment on above: Performed By: #### M G, RENAL, URIC #### [facility] [address] [place] [address] Dr. Richa Cheema Neutrophils/100 WBC (Bld) 49.2 % Normal 43.0-75.0 [facility] Comment on above: Performed By: #### M G, RENAL, URIC #### [facility] [address] [place] [address] Dr. Richa Cheema Platelet mean volume (Bld) [Entitic vol] 10.9 fL Normal 9.5-13.5 [facility] Comment on above: Performed By: #### M G, RENAL, URIC #### [facility] [address] [place] [address] Dr. Richa Cheema PLT 193 103/ul Normal 150-450 [facility] Comment on above: Performed By: #### M G, RENAL, URIC #### [facility] [address] [place] [address] Dr. Richa Cheema RBC 4.09 106/ul Critically low 4.20-5.40 [facility] Comment on above: Performed By: #### M G, RENAL, URIC #### [facility] [address] [place] [address] Dr. Richa Cheema WBC 8.2 103/ul Normal 4.0-11.0 [facility] Comment on above: Performed By: #### M G, RENAL, URIC #### [facility] [address] [place] [address] Dr. Richa Cheema PROF 14(COMP METB)on 022 Albumin [Mass/Vol] 3.7 g/dL Normal 3.4-5.0 [facility] Comment on above: Performed By: #### C MP #### [facility] [address] [place] [address] Dr. Richa Cheema Albumin/Globulin [Mass ratio] 1.2 {ratio} Normal [facility] Comment on above: Performed By: #### C MP #### [facility] [address] [place] [address] Dr. Richa Cheema ALP [Catalytic activity/Vol] 105 U/L Normal 46-116 [facility] Comment on above: Performed By: #### C MP #### [facility] [address] [place] [address] Dr. Richa Cheema ALT [Catalytic activity/Vol] 18 U/L Normal 14-59 [facility] Comment on above: Performed By: #### C MP #### [facility] [address] [place] [address] Dr. Richa Cheema Anion gap [Moles/Vol] 11.4 mmol/L Normal [facility] Comment on above: Performed By: #### C MP #### [facility] [address] [place] [address] Dr. Richa Cheema AST [Catalytic activity/Vol] 12 U/L Critically low 15-37 [facility] Comment on above: Performed By: #### C MP #### [facility] [address] [place] [address] Dr. Richa Cheema Bilirubin [Mass/Vol] 0.3 mg/dL Normal 0.2-1.0 [facility] Comment on above: Performed By: #### C MP #### [facility] [address] [address] [address] Richa Cheema Calcium [Mass/Vol] 8.8 mg/dL Normal 8.5-10.1 [facility] Comment on above: Performed By: #### C MP #### [facility] [address] [address] [address] Richa Cheema Chloride [Moles/Vol] 104 mmol/L Normal 98-107 [facility] Comment on above: Performed By: #### C MP #### [facility] [address] [address] [address] Richa Cheema CO2 [Moles/Vol] 26.9 mmol/L Normal 21.0-32.0 [facility] Comment on above: Performed By: #### C MP #### [facility] [address] [address] [address] Richa Cheema Creatinine [Mass/Vol] 2.38 mg/dL Critically high 0.55-1.02 [facility] Comment on above: Performed By: #### C MP #### [facility] [address] [address] [address] Richa Cheema EGFR-AF GREEK 24 mL/min/1.73m2 Critically low >=60 [facility] Comment on above: Performed By: #### C MP #### [facility] [address] [address] [address] Richa Cheema EGFR-NON AF GREEK 20 mL/min/1.73m2 Critically low >=60 [facility] Comment on above: Performed By: #### C MP #### [facility] [address] [address] [address] Richa Cheema Globulin (S) [Mass/Vol] 3.1 g/dL Normal [facility] Comment on above: Performed By: #### C MP #### [facility] [address] [address] [address] Richa Cheema Glucose [Mass/Vol] 146 mg/dL Critically high 74-106 [facility] Comment on above: Performed By: #### C MP #### [facility] [address] [address] [address] Richa Cheema Potassium [Moles/Vol] 4.3 mmol/L Normal 3.5-5.1 [facility] Comment on above: Performed By: #### C MP #### [facility] [address] [address] [address] Richa Cheema Protein [Mass/Vol] 6.8 g/dL Normal 6.4-8.2 [facility] Comment on above: Performed By: #### C MP #### [facility] [address] [address] [address] Richa Cheema Sodium [Moles/Vol] 138 mmol/L Normal 136-145 [facility] Comment on above: Performed By: #### C MP #### [facility] [address] [address] [address] Richa Cheema Urea nitrogen [Mass/Vol] 31.0 mg/dL Critically high 7.0-18 .0 [facility] Comment on above: Performed By: #### C MP #### [facility] [address] [address] [address] Richa Cheema Urea nitrogen/Creatinine [Mass ratio] 13.0 mg/mg Normal [facility] Comment on above: Performed By: #### C MP #### [facility] [address] [address] [address] Richa Cheema PTH INTACTon 07-01-2022 PTH, Intact 93 pg/mL Critically high 15-65 [facility] Comment on above: Performed By: #### H H #### [facility] [address] [address] [address] Richa Cheema VIT D 25-OH LABCORPon 2021 Vitamin D, 25-Hydroxy 31.8 ng/mL Normal 30.0-100.0 [facility] Comment on above: Result Comment: Emelyn min D deficiency has been defined by the [place] [employer] and an Endocrine Society practice guideline as a level of serum 25-OH vitamin D less than 20 ng/mL (1,2). The Endocrine Society went on to further define vitamin D insufficiency as a level between 21 and 29 ng/mL (2). 1. IOM ([place] of [employer]). 2010. Dietary reference intakes for calcium and D. [place]: The National Academies Press. 2. Reji MF, Caro RUSH, Marguerite MCMAHON, et al. Evaluation, treatment, and prevention of vitamin D deficiency: an Endocrine Society clinical practice guideline. JCEM. 2010; 96(7):1911-30. Performed By: #### M G, RENAL, URIC #### [facility] [address] [address] [address] Richa Cheema HEMOGRAM AND PLATELon 2021 Hematocrit (Bld) [Volume fraction] 39.4 % Normal 36.0-48.0 [facility] Comment on above: Performed By: #### H H #### [facility] [address] [place] [address] Dr. Richa Cheema Hemoglobin (Bld) [Mass/Vol] 13.1 g/dL Normal 12.0-16.0 [facility] Comment on above: Performed By: #### H H #### [facility] [address] [address] [address] Richa Cheema MCH (RBC) [Entitic mass] 31.6 pg Normal 26.7-34.0 [facility] Comment on above: Performed By: #### H H #### [facility] [address] [place] [address] Dr. Richa Cheema MCHC (RBC) [Mass/Vol] 33.2 g/dL Normal 29.9-35.2 [facility] Comment on above: Performed By: #### H H #### [facility] [address] [address] [address] Richa Cheema MCV (RBC) [Entitic vol] 94.9 fL Normal 81.0-99.0 [facility] Comment on above: Performed By: #### H H #### [facility] [address] [place] [address] Dr. Richa Cheema PLT 186 103/ul Normal 150-450 [facility] Comment on above: Performed By: #### H H #### [facility] [address] [address] [address] Richa Cheema RBC 4.15 106/ul Critically low 4.20-5.40 [facility] Comment on above: Performed By: #### H H #### [facility] [address] [address] [address] Richa Cheema WBC 9.5 103/ul Normal 4.0-11.0 [facility] Comment on above: Performed By: #### H H #### [facility] [address] [place] [address] Dr. Richa Cheema MAGNESIUMon 06-30-2022 Magnesium [Mass/Vol] 1.9 mg/dL Normal 1.8-2.4 [facility] Comment on above: Performed By: #### M G, RENAL, URIC #### [facility] [address] [place] [address] Dr. Richa Cheema RENAL FUNCTION PANELon 06-30 Albumin [Mass/Vol] 3.6 g/dL Normal 3.4-5.0 [facility] Comment on above: Performed By: #### M G, RENAL, URIC #### [facility] [address] [address] [address] Richa Cheema Calcium [Mass/Vol] 8.6 mg/dL Normal 8.5-10.1 [facility] Comment on above: Performed By: #### M G, RENAL, URIC #### [facility] [address] [place] [address] Dr. Richa Cheema Chloride [Moles/Vol] 105 mmol/L Normal 98-107 [facility] Comment on above: Performed By: #### M G, RENAL, URIC #### [facility] [address] [place] [address] Dr. Richa Cheema CO2 [Moles/Vol] 25.5 mmol/L Normal 21.0-32.0 [facility] Comment on above: Performed By: #### M G, RENAL, URIC #### [facility] [address] [address] [address] Richa Cheema Creatinine [Mass/Vol] 2.19 mg/dL Critically high 0.55-1.02 [facility] Comment on above: Performed By: #### M G, RENAL, URIC #### [facility] [address] [place] [address] Dr. Richa Cheema EGFR-AF GREEK 26 mL/min/1.73m2 Critically low >=60 [facility] Comment on above: Performed By: #### M G, RENAL, URIC #### [facility] [address] [place] [address] Dr. Richa Cheema EGFR-NON AF GREEK 22 mL/min/1.73m2 Critically low >=60 [facility] Comment on above: Performed By: #### M G, RENAL, URIC #### [facility] [address] [place] [address] Dr. Richa Cheema Glucose [Mass/Vol] 156 mg/dL Critically high 74-106 [facility] Comment on above: Performed By: #### M G, RENAL, URIC #### [facility] [address] [place] [address] Dr. Richa Cheema Phosphate [Mass/Vol] 3.8 mg/dL Normal 2.6-4.7 [facility] Comment on above: Performed By: #### M G, RENAL, URIC #### [facility] [address] [place] [address] Dr. Richa Cheema Potassium [Moles/Vol] 4.7 mmol/L Normal 3.5-5.1 [facility] Comment on above: Performed By: #### M G, RENAL, URIC #### [facility] [address] [place] [address] Dr. Richa Cheema Sodium [Moles/Vol] 139 mmol/L Normal 136-145 [facility] Comment on above: Performed By: #### M G, RENAL, URIC #### [facility] [address] [place] [address] Dr. Richa Cheema Urea nitrogen [Mass/Vol] 25.0 mg/dL Critically high 7.0-18 .0 [facility] Comment on above: Performed By: #### M G, RENAL, URIC #### [facility] [address] [place] [address] Dr. Richa Cheema UA RANDOM W/MICROSCOPICon BACTERIA NONE SEEN Normal NONE SEEN [facility] Comment on above: Performed By: #### H H #### [facility] [address] [place] [address] Dr. Richa Cheema Bilirubin Ql (U) Negative Normal NEGATIVE [facility] Comment on above: Performed By: #### H H #### [facility] [address] [place] [address] Dr. Richa Cheema CAST NONE SEEN Normal NONE SEEN [facility] Comment on above: Performed By: #### H H #### [facility] [address] [place] [address] Dr. Richa Cheema Clarity (U) CLEAR Normal CLEAR [facility] Comment on above: Performed By: #### H H #### [facility] [address] [place] [address] Dr. Richa Cheema Color (U) LT. YELLOW Normal YELLOW [facility] Comment on above: Performed By: #### H H #### [facility] [address] [place] [address] Dr. Richa Cheema Crystals LM Nom (Urine sed) NONE SEEN Normal NONE SEEN [facility] Comment on above: Performed By: #### H H #### [facility] [address] [place] [address] Dr. Richa Cheema Epithelial cells LM Ql (Urine sed) FEW Abnormal NONE SEEN /RARE [facility] Comment on above: Performed By: #### H H #### [facility] [address] [place] [address] Dr. Richa Cheema Glucose Ql (U) Negative Normal NEGATIVE [facility] Comment on above: Performed By: #### H H #### [facility] [address] [place] [address] Dr. Richa Cheema Hemoglobin Ql (U) Negative Normal NEGATIVE [facility] Comment on above: Performed By: #### H H #### [facility] [address] [place] [address] Dr. Richa Cheema Ketones Ql (U) Negative Normal NEGATIVE [facility] Comment on above: Performed By: #### H H #### [facility] [address] [place] [address] Dr. Richa Cheema LEUKOCYTES Negative Normal NEGATIVE [facility] Comment on above: Performed By: #### H H #### [facility] [address] [place] [address] Dr. Richa Cheema MUCOUS NONE SEEN Normal NONE SEEN [facility] Comment on above: Performed By: #### H H #### [facility] [address] [place] [address] Dr. Richa Cheema Nitrite Ql (U) Negative Normal NEGATIVE [facility] Comment on above: Performed By: #### H H #### [facility] [address] [place] [address] Dr. Richa Cheema pH (U) 7.5 [pH] Normal 5-9 [facility] Comment on above: Performed By: #### H H #### [facility] [address] [place] [address] Dr. Richa Cheema RBC NONE SEEN Abnormal 0-2 [facility] Comment on above: Performed By: #### H H #### [facility] [address] [place] [address] Dr. Richa Cheema SPEC GRAVITY 1.015 Normal 1.005-<=1. 025 [facility] Comment on above: Performed By: #### H H #### [facility] [address] [place] [address] Dr. Richa Cheema UA PROTEIN 30 mg/dl Abnormal NEGATIVE/ TRACE [facility] Comment on above: Performed By: #### H H #### [facility] [address] [place] [address] Dr. Richa Cheema Urobilinogen Qn (U) 0.2 {Marley'U}/dL Normal 0.2 - 1. 0 [facility] Comment on above: Performed By: #### H H #### [facility] [address] [place] [address] Dr. Richa Cheema WBC NONE SEEN Normal NONE SEEN [facility] Comment on above: Performed By: #### H H #### [facility] [address] [place] [address] Dr. Richa Cheema URIC ACID SERUMon 06-30-2022 Urate [Mass/Vol] 5.4 mg/dL Normal 2.6-6.0 [facility] Comment on above: Performed By: #### M G, RENAL, URIC #### [facility] [address] [place] [address] Dr. Richa Cheema URINE T PROTEIN CREAT RATIOo n 06-30-2022 Protein (U) [Mass/Vol] 72.9 mg/dL Critically high <=12.0 [facility] Comment on above: Performed By: #### U RTPCR #### [facility] [address] [place] [address] Dr. Richa Cheema UR PROT CREAT RAT 0.90 Normal [facility] Comment on above: Performed By: #### U RTPCR #### [facility] [address] [place] [address] Dr. Richa Cheema URINE CREAT 80.68 mg/dL Normal 20.00-300. 00 [facility] Comment on above: Performed By: #### U RTPCR #### [facility] [address] [place] [address] Dr. Richa Cheema Office Visit (Cardiology)on 06-16-2022 [...] recurrence. She did have noninvasive assessment at [facility], which was negative. Couple of years ago. [...] TabletTake 1 (more content not included)... Normal [employer] Screening.on 022 Adult depression screening assessment No [facility] [employer] 250 DO Work Phone: Fall risk assessment a) No falls within the last year [facility] [employer] 250 DO Work Phone: Tobacco use status CP b) No M Located Within [facility] [employer]ff[employer] 250 DO Work Phone: FREE LIGHT CHAINS PLUS RATIO on 06-01-2022 Free [place] Lt Chains,S 24.1 mg/L Critically high 3.3-19.4 [facility] Comment on above: Performed By: #### M G, RENAL, URIC #### [facility] [address], [place] [address] Dr. Richa Cheema Free Lambda Lt Chains,S 17.1 mg/L Normal 5.7-26.3 [facility] Comment on above: Performed By: #### M G, RENAL, URIC #### [facility] [address], [place] [address] Dr. Richa Cheema [place]/Lambda Ratio, S 1.41 Normal 0.26-1.65 [facility] Comment on above: Performed By: #### M G, RENAL, URIC #### [facility] [address] [place], [place] [address] Dr. Richa Cheema Albumin [Mass/volume] in Ser um or PlasmaOrdered By: Claire Choi on 05-31-2022 Albumin [Mass/Vol] 3.5 g/dL 3.2-5.5 [facility] Basophils Auto (Bld) [#/Vol] Ordered By: Claire Choi on 05-31-2022 Basophils (Bld) [#/Vol] 0.1 10*3/uL 0.0-0.2 [facility] Basophils/100 WBC Auto (Bld) Ordered By: Claire Choi on 05-31-2022 Basophils/100 WBC (Bld) 0.9 % . [facility] Blood hemoglobin measurement (mass/volume)Ordered By: Claire Choi on 05-31-2022 Hemoglobin (Bld) [Mass/Vol] 13.5 g/dL 11.8-15.4 [facility] Blood leukocytes automated c ount (number/volume)Ordered By: Claire Choi on 05-31-2022 WBC (Bld) [#/Vol] 9.6 10*3/uL 4.5-11.0 [facility] Creatinine and Glomerular fi ltration rate.predicted panel (S/P/Bld)Ordered By: Claire Choi on 05-31-2022 Creatinine [Mass/Vol] 2.38 mg/dL 0.44-1.03 [facility] Eosinophils Auto (Bld) [#/Vo l]Ordered By: Claire Choi on 05-31-2022 Eosinophils (Bld) [#/Vol] 0.1 10*3/uL 0.0-0.45 [facility] Eosinophils/100 WBC Auto (Bl d)Ordered By: Claire Choi on 05-31-2022 Eosinophils/100 WBC (Bld) 1.0 % . [facility] Erythrocyte distribution wid th Auto (RBC) [Ratio]Ordered By: Claire Choi on 05-31-2022 Erythrocyte distribution width (RBC) [Ratio] 13.8 % 11.9-15.3 [facility] Estimated glomerular filtrat ion rate (GFR) non- AmericanOrdered By: Claire Choi on 05-31-2022 GFR/1.73 sq M.predicted among non-blacks MDRD (S/P/Bld) [Vol rate/Area] 20 mL/Min [facility] Globulin Calc (S) [Mass/Vol] Ordered By: Claire Choi on 05-31-2022 Globulin (S) [Mass/Vol] 2.7 g/dL [facility] Hematocrit Auto (Bld) [Volum e fraction]Ordered By: Claire Choi on 05-31-2022 Hematocrit (Bld) [Volume fraction] 41.0 % 34.0-46.4 [facility] - Hematology and Cell countsOrdered By: Claire Choi on 05-31-2022 Nucleated RBC/100 WBC (Bld) [Ratio] 0.1 % 0-0.5 [facility] Lymphocytes Auto (Bld) [#/Vo l]Ordered By: Claire Choi on 05-31-2022 Lymphocytes (Bld) [#/Vol] 3.1 10*3/uL 1.00-4.8 [facility] Lymphocytes/100 WBC Auto (Bl d)Ordered By: Claire Choi on 05-31-2022 Lymphocytes/100 WBC (Bld) 32.7 % . [facility] MCH Auto (RBC) [Entitic mass ]Ordered By: Claire Choi on 05-31-2022 MCH (RBC) [Entitic mass] 31.0 pg 24.7-34.3 [facility] MCHC Auto (RBC) [Mass/Vol]Or dered By: Claire Choi on 05-31-2022 MCHC (RBC) [Mass/Vol] 33.0 g/dL 32.0-35.0 [facility] MCV Auto (RBC) [Entitic vol] Ordered By: Claire hCoi on 05-31-2022 MCV (RBC) [Entitic vol] 94.0 fL 80-100 [facility] Monocytes Auto (Bld) [#/Vol] Ordered By: Claire Choi on 05-31-2022 Monocytes (Bld) [#/Vol] 0.6 10*3/uL 0.0-0.8 [facility] Monocytes/100 WBC Auto (Bld) Ordered By: Claire Choi on 05-31-2022 Monocytes/100 WBC (Bld) 6.0 % . [facility] Neutrophils Auto (Bld) [#/Vo l]Ordered By: Claire Choi on 05-31-2022 Neutrophils (Bld) [#/Vol] 5.7 10*3/uL 1.8-7.7 [facility] Neutrophils/100 WBC Auto (Bl d)Ordered By: Claire Choi on 05-31-2022 Neutrophils/100 WBC (Bld) 59.4 % . [facility] No Panel InformationOrdered By: Claire Choi on 05-31-2022 Estimated GFR () 24 mL/Min [facility] Comment on above: GFR estimated refere nce range: According to KDOQI guidelines, <60 ml/min/1.73m2 is sufficient to diagnose a patient with chronic kidney disease. Pharmacy Creatinine Clearance (Chem 20.55 [facility] PROTEIN ELECTROPHERESISon Albumin [Mass/Vol] 3.8 g/dL Normal 2.9-4.4 [facility] Comment on above: Performed By: #### P RTELEC #### [facility] [address] [place] [address] Dr. Richa Cheema Albumin/Globulin [Mass ratio] 1.5 {ratio} Normal 0.7-1.7 [facility] Comment on above: Performed By: #### P RTELEC #### [facility] [address] [place] [address] Dr. Richa Cheema Xvgug-3-Tkfmujhd 0.2 g/dL Normal 0.0-0.4 [facility] Comment on above: Performed By: #### P RTELEC #### [facility] [address] [place] [address] Dr. Richa Cheema Dqtfe-4-Faudmxva 0.9 g/dL Normal 0.4-1.0 [facility] Comment on above: Performed By: #### P RTELEC #### [facility] [address] [place] [address] Dr. Richa Cheema Beta Globulin 0.9 g/dL Normal 0.7-1.3 [facility] Comment on above: Performed By: #### P RTELEC #### [facility] [address] [place] [address] Dr. Richa Cheema Gamma Globulin 0.6 g/dL Normal 0.4-1.8 [facility] Comment on above: Performed By: #### P RTELEC #### [facility] [address] [place] [address] Dr. Richa Cheema Globulin (S) [Mass/Vol] 2.5 g/dL Normal 2.2-3.9 [facility] Comment on above: Performed By: #### P RTELEC #### [facility] [address] [place] [address] Dr. Richa Cheema M-Krystian Not Observed Normal Not Observed [facility] Comment on above: Performed By: #### P RTELEC #### [facility] [address] [place] [address] Dr. Richa Cheema PDF . Normal [facility] Comment on above: Performed By: #### P RTELEC #### [facility] [address] [place] [address] Dr. Richa Cheema Please note: Comment Normal [facility] Comment on above: Result Comment: Prot ein electrophoresis scan will follow via computer, mail, or media assistant delivery. Performed By: #### P RTELEC #### [facility] [address] [place] [address] [address] Richa Cheema Protein [Mass/Vol] 6.3 g/dL Normal 6.0-8.5 [facility] Comment on above: Performed By: #### P RTELEC #### [facility] [address] [place], [place] [address] Dr. Richa Cheema Platelet mean volume Auto (B ld) [Entitic vol]Ordered By: Claire Choi on 05-31-2022 Platelet mean volume (Bld) [Entitic vol] 9.4 fL 6.3-10.7 [facility] Platelets Auto (Bld) [#/Vol] Ordered By: Claire Choi on 05-31-2022 Platelets (Bld) [#/Vol] 254 10*3/uL 150-450 [facility] Protein [Mass/volume] in Ser um or PlasmaOrdered By: Claire Choi on 05-31-2022 Protein [Mass/Vol] 6.2 g/dL 6.1-7.9 [facility] RBC Auto (Bld) [#/Vol]Ordere d By: Claire Choi on 05-31-2022 RBC (Bld) [#/Vol] 4.37 10*6/uL 3.60-5.00 [facility] Serum or plasma alanine genao otransferase measurement without P-5'-P (enzymatic activiOrdered By: Claire Choi on 05-31-2022 ALT No additional P-5'-P [Catalytic activity/Vol] 15 U/L 10-60 [facility] Serum or plasma albumin/glob ulin mass ratioOrdered By: Claire Choi on 05-31-2022 Albumin/Globulin [Mass ratio] 1.3 {ratio} [facility] Serum or plasma alkaline bree sphatase measurement (enzymatic activity/volume)Ordered By: Claire Choi on 05-31-2022 ALP [Catalytic activity/Vol] 90 U/L 32-92 [facility] Serum or plasma aspartate am inotransferase measurement (enzymatic activity/volume)Ordered By: Claire Choi on 05-31-2022 AST [Catalytic activity/Vol] 19 U/L 10-42 [facility] Serum or plasma calcium leonor urement (mass/volume)Ordered By: Claire Choi on 05-31-2022 Calcium [Mass/Vol] 8.9 mg/dL 8.2-10.2 [facility] Serum or plasma chloride trinidad surement (moles/volume)Ordered By: Claire Choi on 05-31-2022 Chloride [Moles/Vol] 106 mmol/L 95-114 [facility] Serum or plasma glucose leonor urement (mass/volume)Ordered By: Claire Choi on 05-31-2022 Glucose [Mass/Vol] 151 mg/dL 70-100 [facility] Comment on above: ADA recommended refe rence range Random Glucose Reference Range is dependent on time and content of last meal. Glucose of more than 200 mg/dL in a nonstressed, ambulatory subject supports the diagnosis of Diabetes Mellitus. Serum or plasma potassium me asurement (moles/volume)Ordered By: Claire Choi on 05-31-2022 Potassium [Moles/Vol] 4.9 mmol/L 3.5-5.1 [facility] Serum or plasma sodium measu rement (moles/volume)Ordered By: Claire Choi on 05-31-2022 Sodium [Moles/Vol] 135 mmol/L 136-146 [facility] Serum or plasma total biliru bin measurement (mass/volume)Ordered By: Claire Choi on 05-31-2022 Bilirubin [Mass/Vol] 0.7 mg/dL 0.3-1.2 [facility] Serum or plasma total carbon dioxide measurement (moles/volume)Ordered By: Claire Choi on 05-31-2022 CO2 [Moles/Vol] 20.9 mmol/L 22.0-30.0 [facility] Serum or plasma urea nitroge n measurement (mass/volume)Ordered By: Claire Choi on 05-31-2022 Urea nitrogen [Mass/Vol] 28 mg/dL 9-23 [facility] CBC AUTO DIFFon 05-28-2022 BASO # 0.0 103/ul Normal 0.0-0.1 [facility] Comment on above: Performed By: #### M G, RENAL, URIC #### [facility] [address] [place] [address] [address] Richa Cheema Basophils/100 WBC (Bld) 0.4 % Normal 0.2-2.0 [facility] Comment on above: Performed By: #### M G, RENAL, URIC #### [facility] [address] [place] [address] [address] Richa Cheema EO # 0.1 103/ul Normal 0.0-0.7 [facility] Comment on above: Performed By: #### M G, RENAL, URIC #### [facility] [address] [place] [address] Dr. Richa Cheema Eosinophils/100 WBC (Bld) 1.2 % Normal 0.9-7.0 [facility] Comment on above: Performed By: #### M G, RENAL, URIC #### [facility] [address] [address] [address] Richa Cheema Erythrocyte distribution width (RBC) [Ratio] 13.5 % Normal 11.0-15.0 [facility] Comment on above: Performed By: #### M G, RENAL, URIC #### [facility] [address] [address] [address] Richa Cheema Hematocrit (Bld) [Volume fraction] 41.3 % Normal 36.0-48.0 [facility] Comment on above: Performed By: #### M G, RENAL, URIC #### [facility] [address] [address] [address] Richa Cheema Hemoglobin (Bld) [Mass/Vol] 13.5 g/dL Normal 12.0-16.0 [facility] Comment on above: Performed By: #### M G, RENAL, URIC #### [facility] [address] [address] [address] Richa Cheema IG # 0.02 10e3/ul Normal 0.00-0.03 [facility] Comment on above: Performed By: #### M G, RENAL, URIC #### [facility] [address] [place] [address] Dr. Richa Cheema IG % 0.2 % Normal 0.0-0.5 [facility] Comment on above: Performed By: #### M G, RENAL, URIC #### [facility] [address] [place] [address] Dr. Richa Cheema LYMPH # 2.6 103/ul Normal 1.2-3.8 [facility] Comment on above: Performed By: #### M G, RENAL, URIC #### [facility] [address] [place] [address] Dr. Richa Cheema Lymphocytes/100 WBC (Bld) 32.0 % Normal 20.5-60.0 [facility] Comment on above: Performed By: #### M G, RENAL, URIC #### [facility] [address] [place] [address] Dr. Richa Cheema MANUAL DIFF REQ NO Normal [facility] Comment on above: Performed By: #### M G, RENAL, URIC #### [facility] [address] [place] [address] Dr. Richa Cheema MCH (RBC) [Entitic mass] 31.0 pg Normal 26.7-34.0 [facility] Comment on above: Performed By: #### M G, RENAL, URIC #### [facility] [address] [place] [address] Dr. Richa Cheema MCHC (RBC) [Mass/Vol] 32.7 g/dL Normal 29.9-35.2 [facility] Comment on above: Performed By: #### M G, RENAL, URIC #### [facility] [address] [place] [address] Dr. Richa Cheema MCV (RBC) [Entitic vol] 94.7 fL Normal 81.0-99.0 [facility] Comment on above: Performed By: #### M G, RENAL, URIC #### [facility] [address] [place] [address] Dr. Richa Cheema MONO # 0.5 103/ul Normal 0.3-0.8 [facility] Comment on above: Performed By: #### M G, RENAL, URIC #### [facility] [address] [place] [address] Dr. Richa Cheema Monocytes/100 WBC (Bld) 5.7 % Normal 1.7-12.0 [facility] Comment on above: Performed By: #### M G, RENAL, URIC #### [facility] [address] [place] [address] Dr. Richa Cheema NEUT # 4.9 103/ul Normal 1.4-6.5 [facility] Comment on above: Performed By: #### M G, RENAL, URIC #### [facility] [address] [place] [address] Dr. Richa Cheema Neutrophils/100 WBC (Bld) 60.5 % Normal 43.0-75.0 [facility] Comment on above: Performed By: #### M G, RENAL, URIC #### [facility] [address] [place] [address] Dr. Richa Cheema Platelet mean volume (Bld) [Entitic vol] 10.6 fL Normal 9.5-13.5 [facility] Comment on above: Performed By: #### M G, RENAL, URIC #### [facility] [address] [place] [address] Dr. Richa Cheema PLT 229 103/ul Normal 150-450 [facility] Comment on above: Performed By: #### M G, RENAL, URIC #### [facility] [address] [place] [address] Dr. Richa Cheema RBC 4.36 106/ul Normal 4.20-5.40 [facility] Comment on above: Performed By: #### M G, RENAL, URIC #### [facility] [address] [place] [address] Dr. Richa Cheema WBC 8.1 103/ul Normal 4.0-11.0 [facility] Comment on above: Performed By: #### M G, RENAL, URIC #### [facility] [address] [place] [address] Dr. Richa Cheema GLYCOHEMOGLOBIN A1Con 2021 ADA RECOMMENDATION SEE BELOW Normal [facility] Comment on above: Result Comment: ADA RECOMMENDED LIMIT 4.0 - 6.0 ADA THERAPEUTIC TARGET < 7.0 ACTION SUGGESTED > 7.0 Performed By: #### H H #### [facility] [address] [place] [address] [address] Richa Cheema Glucose [Mass/Vol] 166 mg/dL Normal [facility] Comment on above: Performed By: #### H H #### [facility] [address] [place] [address] Dr. Richa Cheema HbA1c (Bld) [Mass fraction] 7.4 % Critically high 4.5-6.2 [facility] Comment on above: Performed By: #### H H #### [facility] [address] [place] [address] Dr. Richa Cheema PROF 14(COMP METB)on 022 Albumin [Mass/Vol] 3.4 g/dL Normal 3.4-5.0 [facility] Comment on above: Performed By: #### M G, RENAL, URIC #### [facility] [address] [place] [address] Dr. Richa Cheema Albumin/Globulin [Mass ratio] 1.0 {ratio} Normal [facility] Comment on above: Performed By: #### M G, RENAL, URIC #### [facility] [address] [place] [address] Dr. Richa Cheema ALP [Catalytic activity/Vol] 111 U/L Normal 46-116 [facility] Comment on above: Performed By: #### M G, RENAL, URIC #### [facility] [address] [place] [address] Dr. Richa Cheema ALT [Catalytic activity/Vol] 21 U/L Normal 14-59 [facility] Comment on above: Performed By: #### M G, RENAL, URIC #### [facility] [address] [place] [address] Dr. Richa Cheema Anion gap [Moles/Vol] 14.1 mmol/L Normal [facility] Comment on above: Performed By: #### M G, RENAL, URIC #### [facility] [address] [address] [address] Richa Cheema AST [Catalytic activity/Vol] 13 U/L Critically low 15-37 [facility] Comment on above: Performed By: #### M G, RENAL, URIC #### [facility] [address] [place] [address] Dr. Richa Cheema Bilirubin [Mass/Vol] 0.3 mg/dL Normal 0.2-1.0 [facility] Comment on above: Performed By: #### M G, RENAL, URIC #### [facility] [address] [place] [address] Dr. Richa Cheema Calcium [Mass/Vol] 9.1 mg/dL Normal 8.5-10.1 [facility] Comment on above: Performed By: #### M G, RENAL, URIC #### [facility] [address] [place] [address] Dr. Richa Cheema Chloride [Moles/Vol] 107 mmol/L Normal 98-107 [facility] Comment on above: Performed By: #### M G, RENAL, URIC #### [facility] [address] [place] [address] Dr. Richa Cheema CO2 [Moles/Vol] 23.7 mmol/L Normal 21.0-32.0 [facility] Comment on above: Performed By: #### M G, RENAL, URIC #### [facility] [address] [place] [address] Dr. Richa Cheema Creatinine [Mass/Vol] 2.56 mg/dL Critically high 0.55-1.02 [facility] Comment on above: Performed By: #### M G, RENAL, URIC #### [facility] [address] [place] [address] Dr. Richa Cheema EGFR-AF GREEK 22 mL/min/1.73m2 Critically low >=60 [facility] Comment on above: Performed By: #### M G, RENAL, URIC #### [facility] [address] [address] [address] Richa Cheema EGFR-NON AF GREEK 18 mL/min/1.73m2 Critically low >=60 [facility] Comment on above: Performed By: #### M G, RENAL, URIC #### [facility] [address] [address] [address] Richa Cheema Globulin (S) [Mass/Vol] 3.4 g/dL Normal [facility] Comment on above: Performed By: #### M G, RENAL, URIC #### [facility] [address] [place] [address] Dr. Richa Cheema Glucose [Mass/Vol] 211 mg/dL Critically high 74-106 [facility] Comment on above: Performed By: #### M G, RENAL, URIC #### [facility] [address] [place] [address] Dr. Richa Cheema Potassium [Moles/Vol] 4.8 mmol/L Normal 3.5-5.1 [facility] Comment on above: Performed By: #### M G, RENAL, URIC #### [facility] [address] [place] [address] Dr. Richa Cheema Protein [Mass/Vol] 6.8 g/dL Normal 6.4-8.2 [facility] Comment on above: Performed By: #### M G, RENAL, URIC #### [facility] [address] [place] [address] Dr. Richa Cheema Sodium [Moles/Vol] 140 mmol/L Normal 136-145 [facility] Comment on above: Performed By: #### M G, RENAL, URIC #### [facility] [address] [address] [address] Richa Cheema Urea nitrogen [Mass/Vol] 29.0 mg/dL Critically high 7.0-18 .0 [facility] Comment on above: Performed By: #### M G, RENAL, URIC #### [facility] [address] [place] [address] Dr. Richa Cheema Urea nitrogen/Creatinine [Mass ratio] 11.3 mg/mg Normal [facility] Comment on above: Performed By: #### M G, RENAL, URIC #### [facility] [address] [place], [place] [address] Dr. Richa Cheema Covid-19 PCR ([facility])on SARS-CoV-2 (COVID-19) RNA RADHA+probe Ql (Unsp spec) Detected Critically abnormal NOT DETECTED [facility] Comment on above: Result Comment: This test is not yet approved or cleared by the [place] FDA. When there are no FDA-approved or cleared tests available, and other criteria are met, FDA can make tests available under an emergency access mechanism called an Emergency Use Authorization (EUA). The EUA for this test is supported by the [employer] of Health and Human Service's (HHS's) declaration [...] used). Performed By: #### C VDTBH #### [facility] [address] [place], [place] [address] Dr. Richa Cheema XR LSPINE MIN 4 [...] DIANN IBANEZ Date: 2022-04-14 11:25 Normal [facility] CT HEAD WO CONon 04-07-2022 CT HEAD [...] DIANN IBANEZ Date: 2022-04-07 15:47 Normal [facility] - Chemistry and C hemistry - challengeOrdered By: Akin Suarez on 09-07-2021 Magnesium [Mass/Vol] 2.0 mg/dL 1.6-2.6 [facility] No Panel InformationOrdered By: Akin Suarez on 09-07-2021 25-Hydroxy Vitamin D Total 38.5 ng/mL 30-100 [facility] Comment on above: VITAMIN D STATUS [...] on 09-07-2021 Phosphate [Mass/Vol] 3.7 mg/dL 2.5-4.6 [facility] Serum or plasma intact parat hyroid hormone measurement (mass/volume)Ordered By: Akin Suarez on 09-07-2021 Parathyrin.intact [Mass/Vol] 137.7 pg/mL High 12-88 [facility] Serum or plasma uric acid me asurement (mass/volume)Ordered By: Akin Suarez on 09-07-2021 Urate [Mass/Vol] 4.8 mg/dL 2.6-7.2 [facility] Tobacco Screening.on 021 Fall risk assessment a) No falls within the last year [facility] [employer]ffany 250 DO Work Phone: Tobacco use status CPHS b) No [facility] [employer] 250 DO Work Phone: CT biopsyOrdered By: Mike sweet on 06-09-2021 CT biopsy 24 Hours [facility] IgA [Mass/volume] in Serum o r PlasmaOrdered By: Mike Bradley on 06-09-2021 IgA [Mass/Vol] 65 mg/dL 64-422 [facility] IgG [Mass/volume] in Serum o r PlasmaOrdered By: Mike Bradley on 06-09-2021 IgG [Mass/Vol] 654 mg/dL 586-1602 [facility] IgM [Mass/volume] in Serum o r PlasmaOrdered By: Mike Bradley on 06-09-2021 IgM [Mass/Vol] 23 mg/dL 26-217 [facility] Comment on above: Result confirmed on concentration. Performed at: [facility] [address] [place], [place] [id number] Timing Adjuster: Elpidio Delgado PhD, Phone: [phone] Result confirmed on concentration.Performed at: [facility] [id number] Director: Elpidio Delgado PhD, Phone: [phone] Immunofixation for UrineOrde red By: Mike Bradley on 06-09-2021 Interpretation Immunofixation (U) [Interp] See comment Abnormal . [facility] Comment on above: Bence Jenkins Protein positive; kappa type. Performed at: - [facility] [address] [place], [place] [id number] Timing Adjuster: Elpidio Delgado PhD, Phone: [phone] Bence Jenkins Protein positive; kappa type.Performed at: [id number] [place], [place] [id number] Director: Elpidio Delgado PhD, Phone: [phone] No Panel InformationOrdered By: Mike Bradley on 06-09-2021 Serum Immunofixation See comment . [facility] Comment on above: Immunofixation shows IgG monoclonal protein with kappa light chain specificity. Please note that samples from patients receiving DARZALEX(R) (daratumumab) treatment can appear as an IgG kappa and mask a complete response. If this patient is receiving IRMA, this HAILEE assay interference can be removed by ordering test number [id number]- Immunofixation, Daratumumab- Specific, Serum and submitting a [...] interference can be removedby ordering test number [id number]- Immunofixation, Daratumumab-Specific, Serum and submitting a new sample for testing orby calling the lab to add this test to the current sample. Urine Albumin 24 Hours 33.2 % . [facility] Urine Xtncv-2-Vqqrrbrf 4.3 % . [facility] Urine Lvkke-8-Ziqodxllv 16.0 % . [facility] Urine Beta Globulin 36.7 % . [facility] Urine Gamma Globulin 9.8 % . [facility] Urine IEP M-Krystian % 24 Hr 21.1 % High Not Observed [facility] Urine Random Prot Electrophor Note See comment . [facility] Comment on above: Protein electrophore sis scan will follow via computer, mail, or media assistant delivery. Protein electrophore sis scan will follow via computer,mail, or media assistant delivery. Protein [Mass/time] in 24 ho ur UrineOrdered By: Mike Bradley on 06-09-2021 Protein (24H U) [Mass/Time] 125 mg/24 hr 30-150 [facility] Protein [Mass/volume] in Uri neOrdered By: Mike Bradley on 06-09-2021 Protein (U) [Mass/Vol] 8.5 mg/dL Not Estab. Fi [facility] Protein.monoclonal [Mass/junaid e] in 24 hour Urine by ElectrophoresisOrdered By: Mike Bradley on 06-09-2021 Protein.monoclonal Elph (24H U) [Mass/Time] 26.5 mg/24 hr High Not Observed [facility] Urine volume measurementOrde red By: Mike Bradley on 06-09-2021 Specimen volume (U) 1475 ml [facility] Urine culture routineon 02-12 Bacteria identified Cx Nom (U) Pseudomonas aeruginosa [facility] Automated epithelial cells c ount in urine sediment (number/area)on 02-24-2021 Epithelial cells Auto (Urine sed) [#/Area] 0-1 [HPF] 0-2 [facility] Automated erythrocytes count in urine sediment (number/area)on 02-24-2021 RBC Auto (Urine sed) [#/Area] Innumerable [HPF] 0-4 [facility] Automated leukocytes count i n urine sediment (number/area)on 02-24-2021 WBC Auto (Urine sed) [#/Area] 0-1 [HPF] 0-4 [facility] Automated urine specific gra vity by refractometryon 02-24-2021 Specific gravity Refractometry automated (U) [Rel density] 1.009 1.001-1.03 0 [facility] Comment on above: Rechecked by refract ometer Bilirubin Test strip Ql (U)o n 02-24-2021 Bilirubin Ql (U) See comment Negative [facility] Comment on above: Unable to obtain acc urate result due to color interference. Color Auto (U)on 02-24-2021 Color (U) Red Yellow [facility] Creatinine [Mass/volume] in Urineon 02-24-2021 Creatinine (U) [Mass/Vol] 77.2 mg/dL [facility] Comment on above: No reference range e stablished Ketones Auto test strip (U) [Mass/Vol]on 02-24-2021 Ketones (U) [Mass/Vol] See comment Negative [facility] Comment on above: Unable to obtain acc urate result due to color interference. Nitrite Test strip Ql (U)on 02-24-2021 Nitrite Ql (U) See comment Negative [facility] Comment on above: Unable to obtain acc urate result due to color interference. Protein Auto test strip (U) [Mass/Vol]on 02-24-2021 Protein (U) [Mass/Vol] See comment Negative [facility] Comment on above: Unable to obtain acc urate result due to color interference. Urine bacteria detection by automated methodon 02-24-2021 Bacteria Auto Ql (U) None seen None Seen [facility] Urine clarity by refractomet ry automatedon 02-24-2021 Clarity Refractometry automated (U) Turbid Clear [facility] Urine culture routineon 02-12 Bacteria identified Cx Nom (U) Pseudomonas aeruginosa Abnormal [facility] Bacteria identified Cx Nom (U) Pseudomonas aeruginosa Abnormal [facility] Urine glucose measurement by automated test strip (mass/volume)on 02-24-2021 Glucose Auto test strip (U) [Mass/Vol] See comment Normal [facility] Comment on above: Unable to obtain acc urate result due to color interference. Urine hemoglobin detection b y automated test stripon 02-24-2021 Hemoglobin Auto test strip Ql (U) See comment Negative [facility] Comment on above: Unable to obtain acc urate result due to color interference. Urine leukocyte esterase det ection by automated test stripon 02-24-2021 Leukocyte esterase Auto test strip Ql (U) See comment Negative [facility] Comment on above: Unable to obtain acc urate result due to color interference. Urine protein/creatinine rat ioon 02-24-2021 Protein/Creatinine (U) [Ratio] 2098 mg/g{Cre} High 0-200 [facility] Urobilinogen Auto test strip (U) [Mass/Vol]on 02-24-2021 Urobilinogen (U) [Mass/Vol] See comment Normal [facility] Comment on above: Unable to obtain acc urate result due to color interference. pH Auto test strip (U)on pH (U) See comment 5.0-9.0 [facility] Comment on above: Unable to obtain acc urate result due to color interference. Laboratory - Chemistry and C hemistry - challengeon 10-28-2020 Cobalamin (Vitamin B12) [Mass/Vol] 506 pg/mL 180-914 [facility] Laboratory - Hematology and Cell countson 10-28-2020 WBC (Bld) [#/Vol] 10.0 10*3/uL 4.5-11.0 [facility] Laboratory - Urinalysison Hyaline casts LM Ql (Urine sed) 0-8 [LPF] 0-8 [facility] Urine culture routineon Bacteria identified Cx Nom (U) bacilli - 1 Day [facility] Serum intrinsic factor block ing antibody detection by radioimmunoassay (MAGGIE)on 02-28-2019 Intrinsic factor blocking Ab MAGGIE Ql (S) 0.9 AU/mL 0.0-1.1 [facility] Comment on above: Performed at: [facility] [address] [id number] Timing Adjuster: Britton Valente MD, Phone: [phone] Performed at: [facility] [address] [id number] Director: Britton Valente MD, Phone: [phone] Serum parietal cell antibody assay (units/volume)on 02-28-2019 Parietal cell Ab Qn (S) 1.9 Units 0.0-20.0 [facility] Comment on above: Negative 0.0 - 20.0 Equivocal 20.1 - 24.9 Positive >24.9 Parietal Cell Antibodies are found in 90% of patients with pernicious anemia and 30% of first degree relatives with pernicious anemia. Performed at: [facility] [address] [id number] Timing Adjuster: Elpidio Delgado PhD, Phone: [phone] Negative 0.0 - 20.0 Equivocal 20.1 - 24.9 Positive >24.9Parietal Cell Antibodies are found in 90% of patientswith pernicious anemia and 30% of first degreerelatives with pernicious anemia.Performed at: [facility] [address] [id number] Director: Elpidio Delgado PhD, Phone: [phone] Glucose Glucometer (BldC) [M ass/Vol]on 01-02-2019 Glucose [Mass/Vol] 133 mg/dL [facility] Comment on above: Random Glucose Refer ence Range is dependent on time and content of last meal. Glucose of more than 200 mg/dL in a nonstressed, ambulatory subject supports the diagnosis of Diabetes Mellitus. Glucose mean value [Mass/vol ume] in Blood Estimated from glycated hemoglobinon 01-02-2019 Average glucose Estimated from glycated hemoglobin (Bld) [Mass/Vol] 183 mg/dL [facility] HbA1c (Bld)on 01-02-2019 HbA1c (Bld) [Mass fraction] 8.0 % 4.3-5.6 [facility] Comment on above: Increased risk for d iabetes: 5.7 - 6.4 diabetes: >6.4 glycemic control for adults with diabetes: <7.0 Increased risk for d iabetes: 5.7 - 6.4diabetes: >6.4glycemic control for adults with diabetes: <7.0 IgA [Mass/volume] in Serum o r Plasmaon 10-13-2018 IgA [Mass/Vol] 65 mg/dL 64-422 [facility] IgG [Mass/volume] in Serum o r Plasmaon 10-13-2018 IgG [Mass/Vol] 487 mg/dL Low 700-1600 [facility] IgM [Mass/volume] in Serum o r Plasmaon 10-13-2018 IgM [Mass/Vol] 38 mg/dL 26-217 [facility] Comment on above: Performed at: [facility] [address] [place], [place] [id number] Timing Adjuster: Elpidio Delgado PhD, Phone: [phone] Performed at: [facility] [address] [id number] Director: Elpidio Delgado PhD, Phone: [phone] Serum or plasma 25-hydroxyca lciferol measurement (mass/volume)on 09-15-2017 25-hydroxyvitamin D2 [Mass/Vol] <1.0 ng/mL . [facility] Serum or plasma calcidiol me asurement (mass/volume)on 09-15-2017 25-hydroxyvitamin D3 [Mass/Vol] 65 ng/mL . [facility] Comment on above: Performed at: [facility] [address] [place], [place] [id number] Timing Adjuster: Marcelino Estes MD, Phone: [phone] Performed at: [facility] [address] [place], [place] [id number] Director: Marcelino Estes MD, Phone: [phone] Vital Signs Date Time Vital Sign Value Performing Clinician Facility 09-19-2024 15:07-0500 Body height 167.64 cm MD Curt Clark Work Phone: [facility] 09-19-2024 11:38-0500 Body temperature 98 [degF] MD Curt Clark Work Phone: [facility] 09-19-2024 11:38-0500 Diastolic blood pressure 76 mm[Hg] MD Curt Clark Work Phone: [facility] 09-19-2024 11:38-0500 Heart rate 86 /min MD Curt Clark Work Phone: [facility] 09-19-2024 11:38-0500 SaO2% (BldA) [Mass fraction] 98 % MD Curt Clark Work Phone: [facility] 09-19-2024 11:38-0500 Systolic blood pressure 128 mm[Hg] MD Curt Clark Work Phone: [facility] 09-19-2024 07:31-0500 Respiratory rate 20 /min MD Curt Clark Work Phone: [facility] 09-19-2024 05:34-0500 Body weight 90.3 kg MD Curt Clark Work Phone: [facility] 09-18-2024 00:38-0500 Diastolic blood pressure 57 mm[Hg] MD Curt Clark Work Phone: [facility] 09-18-2024 00:38-0500 Heart rate 90 /min MD Curt Clark Work Phone: [facility] 09-18-2024 00:38-0500 Respiratory rate 20 /min MD Curt Clark Work Phone: [facility] 09-18-2024 00:38-0500 SaO2% (BldA) [Mass fraction] 96 % MD Curt Clark Work Phone: [facility] 09-18-2024 00:38-0500 Systolic blood pressure 131 mm[Hg] MD Curt Clark Work Phone: [facility] 09-17-2024 20:43-0500 Body height 167.64 cm MD Curt Clark Work Phone: [facility] 09-17-2024 20:43-0500 Body temperature 98.2 [degF] MD Curt Clark Work Phone: [facility] 09-17-2024 20:43-0500 Body weight 89.25 kg MD Curt Clark Work Phone: [facility] 08-20-2024 10:48-0400 Body mass index (BMI) [Ratio] 31 kg/m2 MD Curt Clark Work Phone: [facility] 08-20-2024 10:48-0400 Diastolic blood pressure 68 mm[Hg] MD Curt Clark Work Phone: [facility] 08-20-2024 10:48-0400 Systolic blood pressure 164 mm[Hg] MD Curt Clark Work Phone: [facility] 08-20-2024 10:25-0400 Body height 171.45 cm MD Curt Clark Work Phone: [facility] 08-20-2024 10:25-0400 Body weight 91.22 kg MD Curt Clark Work Phone: [facility] 08-20-2024 10:25-0400 Heart rate 70 /min MD Curt Clark Work Phone: [facility] 08-20-2024 10:25-0400 Respiratory rate 16 /min MD uCrt Clark Work Phone: [facility] 08-20-2024 10:25-0400 SaO2% (BldA) [Mass fraction] 97 % MD Curt Clark Work Phone: [facility] 08-17-2024 15:22-0400 Body height 172.09 cm MD Curt Clark Work Phone: [facility] 08-17-2024 15:22-0400 Body mass index (BMI) [Ratio] 30.6 kg/m2 MD Curt Clark Work Phone: [facility] 08-17-2024 15:22-0400 Body temperature 98.2 [degF] MD Curt Clark Work Phone: [facility] 08-17-2024 15:22-0400 Body weight 90.71 kg MD Curt Clark Work Phone: [facility] 08-17-2024 15:22-0400 Diastolic blood pressure 76 mm[Hg] MD Curt Clark Work Phone: [facility] 08-17-2024 15:22-0400 Heart rate 78 /min MD Curt Clark Work Phone: [facility] 08-17-2024 15:22-0400 Respiratory rate 20 /min MD Curt Clark Work Phone: [facility] 08-17-2024 15:22-0400 SaO2% (BldA) [Mass fraction] 97 % MD Curt Clark Work Phone: [facility] 08-17-2024 15:22-0400 Systolic blood pressure 180 mm[Hg] MD Curt Clark Work Phone: [facility] 07-05-2024 13:06-0400 Body height 172.09 cm MD Curt Clark Work Phone: [facility] 07-05-2024 13:06-0400 Body mass index (BMI) [Ratio] 30.3 kg/m2 MD Curt Clark Work Phone: [facility] 07-05-2024 13:06-0400 Body temperature 96.9 [degF] MD Curt Clark Work Phone: [facility] 07-05-2024 13:06-0400 Body weight 89.81 kg MD Curt Clark Work Phone: [facility] 07-05-2024 13:06-0400 Diastolic blood pressure 84 mm[Hg] MD Curt Clark Work Phone: [facility] 07-05-2024 13:06-0400 Heart rate 79 /min MD Curt Clark Work Phone: [facility] 07-05-2024 13:06-0400 Respiratory rate 16 /min MD Curt Clark Work Phone: [facility] 07-05-2024 13:06-0400 SaO2% (BldA) [Mass fraction] 97 % MD Curt Clark Work Phone: [facility] 07-05-2024 13:06-0400 Systolic blood pressure 139 mm[Hg] MD Curt Clark Work Phone: [facility] 05-31-2024 11:10-0400 Body height 172.09 cm MD Curt Clark Work Phone: [facility] 05-31-2024 11:10-0400 Body mass index (BMI) [Ratio] 67.1 kg/m2 MD Curt Clark Work Phone: [facility] 05-31-2024 11:10-0400 Body mass index (BMI) [Ratio] 30.3 kg/m2 MD Curt Clark Work Phone: [facility] 05-31-2024 11:10-0400 Body weight 199 kg MD Curt Clark Work Phone: [facility] 05-31-2024 11:10-0400 Body weight 89.81 kg MD Curt Clark Work Phone: [facility] 05-31-2024 11:10-0400 Diastolic blood pressure 63 mm[Hg] MD Curt Clark Work Phone: [facility] 05-31-2024 11:10-0400 Heart rate 68 /min MD Curt Clark Work Phone: [facility] 05-31-2024 11:10-0400 Systolic blood pressure 151 mm[Hg] MD Curt Clark Work Phone: [facility] 04-17-2024 13:55-0400 Body height 162.6 cm Elicia Rhodes MD Work Phone: [facility] 04-17-2024 13:55-0400 Body mass index (BMI) [Ratio] 34.33 kg/m2 Elicia Rhodes MD Work Phone: [facility] 04-17-2024 13:55-0400 Body weight 90.72 kg Elicai Rhodes MD Work Phone: [facility] 04-17-2024 13:55-0400 Diastolic blood pressure 66 mm[Hg] Elicia Rhodes MD Work Phone: [facility] 04-17-2024 13:55-0400 Heart rate 68 /min Elicia Rhodes MD Work Phone: [facility] 04-17-2024 13:55-0400 Systolic blood pressure 128 mm[Hg] Elicia Rhodes MD Work Phone: [facility] 04-12-2024 09:27-0400 Body height 172.09 cm MD Curt Clark Work Phone: [facility] 04-12-2024 09:27-0400 Body mass index (BMI) [Ratio] 30.4 kg/m2 MD Curt Clark Work Phone: [facility] 04-12-2024 09:27-0400 Body weight 90.03 kg MD Curt Clark Work Phone: [facility] 04-12-2024 09:27-0400 Diastolic blood pressure 77 mm[Hg] MD Curt Clark Work Phone: [facility] 04-12-2024 09:27-0400 Heart rate 65 /min MD Curt Clark Work Phone: [facility] 04-12-2024 09:27-0400 Systolic blood pressure 166 mm[Hg] MD Curt Clark Work Phone: [facility] 01-27-2024 15:01-0400 Body temperature 97.8 [degF] MD Curt Clark Work Phone: [facility] 01-27-2024 15:01-0400 Body weight 90.71 kg MD Curt Clark Work Phone: [facility] 01-27-2024 15:01-0400 Diastolic blood pressure 76 mm[Hg] MD Curt Clark Work Phone: [facility] 01-27-2024 15:01-0400 Heart rate 64 /min MD Curt Clark Work Phone: [facility] 01-27-2024 15:01-0400 Respiratory rate 16 /min MD Curt Clark Work Phone: [facility] 01-27-2024 15:01-0400 SaO2% (BldA) [Mass fraction] 99 % MD Curt Clark Work Phone: [facility] 01-27-2024 15:01-0400 Systolic blood pressure 140 mm[Hg] MD Curt Clark Work Phone: [facility] 01-04-2024 10:59-0500 Body height 167 cm MD Curt Clark Work Phone: [facility] 01-04-2024 10:59-0500 Body mass index (BMI) [Ratio] 32.5 kg/m2 MD Curt Clark Work Phone: [facility] 01-04-2024 10:59-0500 Body weight 90.88 kg MD Curt Clark Work Phone: [facility] 01-04-2024 10:59-0500 Diastolic blood pressure 77 mm[Hg] MD Curt Clark Work Phone: [facility] 01-04-2024 10:59-0500 Heart rate 71 /min MD Curt Clark Work Phone: [facility] 01-04-2024 10:59-0500 Respiratory rate 18 /min MD Curt Clark Work Phone: [facility] 01-04-2024 10:59-0500 SaO2% (BldA) [Mass fraction] 98 % MD Curt Clark Work Phone: [facility] 01-04-2024 10:59-0500 Systolic blood pressure 133 mm[Hg] MD Curt Clark Work Phone: [facility] 12-01-2023 11:00-0500 Body height 166.55 cm Curt Clark Other [facility] 12-01-2023 11:00-0500 Body mass index (BMI) [Ratio] 32.77 kg/m2 Curt Clark Other [facility] Other 12-01-2023 11:00-0500 Body weight 90.9 kg Curt Clark Other [facility] Other 12-01-2023 11:00-0500 Body weight 90.89 kg MD Curt Clark Work Phone: [facility] 12-01-2023 11:00-0500 Diastolic blood pressure 76 mm[Hg] Curt Clark Other [facility] 12-01-2023 11:00-0500 Systolic blood pressure 125 mm[Hg] Curt Clark Other [facility] 11-02-2023 10:34-0500 Body height 162.[address] 11-02-2023 10:34-0500 Body mass index (BMI) [Ratio] 33.3 kg/m2 [address] 11-02-2023 10:34-0500 Body weight 88 kg [address] 11-02-2023 10:34-0500 Diastolic blood pressure 74 mm[Hg] [address] 11-02-2023 10:34-0500 Systolic blood pressure 140 mm[Hg] [address] 10-04-2023 14:04-0500 Body height 167.6 cm Elicia Rhodes MD Work Phone: [facility] 10-04-2023 14:04-0500 Body mass index (BMI) [Ratio] 31.31 kg/m2 Elicia Rhodes MD Work Phone: [facility] 10-04-2023 14:04-0500 Body weight 88 kg Elicia Rhodes MD Work Phone: [facility] 10-04-2023 14:04-0500 Diastolic blood pressure 68 mm[Hg] Elicia Rhodes MD Work Phone: [facility] 10-04-2023 14:04-0500 Heart rate 72 /min Elicia Rhodes MD Work Phone: [facility] 10-04-2023 14:04-0500 Systolic blood pressure 138 mm[Hg] Elicia Rhodes MD Work Phone: [facility] 09-26-2023 14:00-0500 Body height 166.55 cm Curt Clark Other [facility] Other 09-26-2023 14:00-0500 Body mass index (BMI) [Ratio] 31.43 kg/m2 Curt Clark Other [facility] Other 09-26-2023 14:00-0500 Body weight 87.18 kg Curt Clark Other [facility] Other 09-26-2023 14:00-0500 Diastolic blood pressure 73 mm[Hg] Curt Clark Other [facility] Other 09-26-2023 14:00-0500 SaO2% (BldA) [Mass fraction] 98 % Curt Clark Other [facility] Other 09-26-2023 14:00-0500 Systolic blood pressure 122 mm[Hg] Curt Clark Other [employer] Other 09-13-2023 15:45-0400 Body height 166.55 cm Curt Clark Other [employer] Other 09-13-2023 15:45-0400 Body mass index (BMI) [Ratio] 31.39 kg/m2 Curt Clark Other [employer] Other 09-13-2023 15:45-0400 Body temperature 97.1 [degF] Curt Clark Other [facility] Other 09-13-2023 15:45-0400 Body weight 87.09 kg Curt Clark Other [facility] Other 09-13-2023 15:45-0400 Diastolic blood pressure 75 mm[Hg] Curt Clark Other [facility] Other 09-13-2023 15:45-0400 Systolic blood pressure 148 mm[Hg] Curt Clark Other [facility] Other 08-31-2023 13:30-0400 Body height 166.55 cm Nehemias Fernandez II Other [employer] Other 08-31-2023 13:30-0400 Body mass index (BMI) [Ratio] 31.56 kg/m2 Nehemias Fernandez II Other [facility] Other 08-31-2023 13:30-0400 Body weight 87.54 kg Nehemias Fernandez II Other [facility] Other 07-19-2023 10:44-0400 Body height 167.64 cm MD Curt Clark Work Phone: [facility] 07-19-2023 10:40-0400 Body temperature 97.5 [degF] MD Curt Clark Work Phone: [facility] 07-19-2023 10:40-0400 Body weight 85.95 kg MD Curt Clark Work Phone: [facility] 07-19-2023 10:40-0400 Diastolic blood pressure 69 mm[Hg] MD Curt Clark Work Phone: [facility] 07-19-2023 10:40-0400 Heart rate 79 /min MD Curt Clark Work Phone: [facility] 07-19-2023 10:40-0400 Respiratory rate 20 /min MD Curt Clark Work Phone: [facility] 07-19-2023 10:40-0400 SaO2% (BldA) [Mass fraction] 98 % MD Curt Clark Work Phone: [facility] 07-19-2023 10:40-0400 Systolic blood pressure 134 mm[Hg] MD Curt Clark Work Phone: [facility] 06-24-2023 13:30-0400 Body height 166.55 cm Curt Clark Other [facility] Other 06-24-2023 13:30-0400 Body mass index (BMI) [Ratio] 30.58 kg/m2 Curt Clark Other [facility] Other 06-24-2023 13:30-0400 Body weight 84.82 kg Curt Clark Other [facility] Other 06-24-2023 13:30-0400 Diastolic blood pressure 79 mm[Hg] Curt Clark Other [facility] Other 06-24-2023 13:30-0400 SaO2% (BldA) [Mass fraction] 97 % Curt Clark Other [facility] Other 06-24-2023 13:30-0400 Systolic blood pressure 127 mm[Hg] Curt Clark Other [facility] Other 06-23-2023 11:20-0400 Body height 166.55 cm Akin Lopez Other [facility] Other 06-23-2023 11:20-0400 Body temperature 96.5 [degF] Akin Lopez Other [facility] Other 06-23-2023 11:20-0400 Diastolic blood pressure 82 mm[Hg] Akin Lopez Other [facility] Other 06-23-2023 11:20-0400 Respiratory rate 20 /min Akin Lopez Other [facility] Other 06-23-2023 11:20-0400 SaO2% (BldA) [Mass fraction] 98 % Akin Lopez Other [facility] Other 06-23-2023 11:20-0400 Systolic blood pressure 149 mm[Hg] Akin Lopez Other [facility] Other 04-26-2023 11:30-0400 Body height 166.37 cm Curt Clark Other [employer] Other 04-26-2023 11:30-0400 Body mass index (BMI) [Ratio] 31.13 kg/m2 Curt Clark Other [facility] Other 04-26-2023 11:30-0400 Body weight 86.18 kg Curt Clark Other [facility] Other 04-26-2023 11:30-0400 Diastolic blood pressure 68 mm[Hg] Curt Clark Other [facility] Other 04-26-2023 11:30-0400 Systolic blood pressure 109 mm[Hg] Curt Clark Other [facility] Other 03-23-2023 14:10-0400 Body height 167.64 cm Curt Clark Work Phone: [employer] DO Work Phone: 03-23-2023 14:10-0400 Body mass index (BMI) [Ratio] 31.15 kg/m2 Curt Clark Work Phone: [employer] DO Work Phone: 03-23-2023 14:10-0400 Body surface area Derived from formula 1.97 m2 Curt Clark Work Phone: [facility] [employer] 250 DO Work Phone: 03-23-2023 14:10-0400 Body weight 87.54 kg Curt Clark Work Phone: [facility] [employer] 250 DO Work Phone: 03-23-2023 14:10-0400 Diastolic blood pressure 68 mm[Hg] Curt Clark Work Phone: [facility] [employer] 250 DO Work Phone: 03-23-2023 14:10-0400 Heart rate 68 /min Curt Clark Work Phone: [facility] [employer] 250 DO Work Phone: 03-23-2023 14:10-0400 Systolic blood pressure 102 mm[Hg] Curt Clark Work Phone: [facility] [employer] 250 DO Work Phone: 03-15-2023 12:00-0400 Body height 166.37 cm Curt Clark Other [facility] Other 03-15-2023 12:00-0400 Body mass index (BMI) [Ratio] 31.95 kg/m2 Curt Clark Other [facility] Other 03-15-2023 12:00-0400 Body weight 88.45 kg Curt Clark Other [facility] Other 03-15-2023 12:00-0400 Diastolic blood pressure 60 mm[Hg] Curt Clark Other [employer] Other 03-15-2023 12:00-0400 Systolic blood pressure 124 mm[Hg] Curt Clark Other [employer] Other 02-21-2023 11:06-0400 75.6 1 Curt Clark Work Phone: [facility] 250 DO Work Phone: Comment on above: [facility] 01-11-2023 10:37-0500 Body temperature 97.8 [degF] MD Curt Clark Work Phone: [facility] 01-11-2023 10:37-0500 Body weight 88.2 kg MD Curt Clark Work Phone: [facility] 01-11-2023 10:37-0500 Diastolic blood pressure 63 mm[Hg] MD Curt Clark Work Phone: [facility] 01-11-2023 10:37-0500 Heart rate 66 /min MD Curt Clark Work Phone: [facility] 01-11-2023 10:37-0500 Respiratory rate 16 /min MD Curt Clark Work Phone: [facility] 01-11-2023 10:37-0500 SaO2% (BldA) [Mass fraction] 97 % MD Curt Clark Work Phone: [facility] 01-11-2023 10:37-0500 Systolic blood pressure 139 mm[Hg] MD Curt Clark Work Phone: [facility] 01-10-2023 11:11-0500 Blood Pressure Location Tyree PARK [facility] 01-10-2023 11:11-0500 Diastolic blood pressure 84 mm[Hg] Tyree PARK [facility] 01-10-2023 11:11-0500 Heart rate 80 /min Tyree PARK [facility] 01-10-2023 11:11-0500 Respiratory rate 16 /min Tyree PARK [facility] 01-10-2023 11:11-0500 Systolic blood pressure 136 mm[Hg] Tyree PARK [facility] 12-22-2022 12:40-0500 Body height 166.37 cm Akin Lopez Other [employer] Other 12-22-2022 12:40-0500 Body mass index (BMI) [Ratio] 31.53 kg/m2 Akin Lopez Other [employer] Other 12-22-2022 12:40-0500 Body temperature 96.5 [degF] Akin Lopez Other [employer] Other 12-22-2022 12:40-0500 Body weight 87.27 kg Akin Lopez Other [employer] Other 12-22-2022 12:40-0500 Diastolic blood pressure 78 mm[Hg] Akin Lopez Other [employer] Other 12-22-2022 12:40-0500 Respiratory rate 18 /min Akin Lopez Other [employer] Other 12-22-2022 12:40-0500 SaO2% (BldA) [Mass fraction] 98 % Akin Lopez Other [employer] Other 12-22-2022 12:40-0500 Systolic blood pressure 122 mm[Hg] Akin Lopez Other [employer] Other 12-09-2022 11:45-0500 Body height 166.37 cm Curt Clark Other [employer] Other 12-09-2022 11:45-0500 Body mass index (BMI) [Ratio] 31.95 kg/m2 Curt Clark Other [employer] Other 12-09-2022 11:45-0500 Body weight 88.45 kg Curt Clark Other [employer] Other 12-09-2022 11:45-0500 Diastolic blood pressure 62 mm[Hg] Curt Clark Other [employer] Other 12-09-2022 11:45-0500 SaO2% (BldA) [Mass fraction] 96 % Curt Clark Other [employer] Other 12-09-2022 11:45-0500 Systolic blood pressure 128 mm[Hg] Curt Clark Other [employer] Other 07-13-2022 09:12-0400 Body weight 84.5 kg MD Curt Clark Work Phone: [facility] 07-13-2022 08:58-0400 Body height 167.64 cm MD Curt Clark Work Phone: [facility] 07-13-2022 08:58-0400 Body temperature 98.6 [degF] MD Curt Clark Work Phone: [facility] 07-13-2022 08:58-0400 Diastolic blood pressure 74 mm[Hg] MD Curt Clark Work Phone: [facility] 07-13-2022 08:58-0400 Heart rate 89 /min MD Curt Clark Work Phone: [facility] 07-13-2022 08:58-0400 Respiratory rate 18 /min MD Curt Clark Work Phone: [facility] 07-13-2022 08:58-0400 SaO2% (BldA) [Mass fraction] 97 % MD Curt Clark Work Phone: [facility] 07-13-2022 08:58-0400 Systolic blood pressure 126 mm[Hg] MD Curt Clark Work Phone: [facility] 07-07-2022 10:20-0400 Body height 167.64 cm Akin Lopez Other [employer] Other 07-07-2022 10:20-0400 Body mass index (BMI) [Ratio] 30.24 kg/m2 Akin Lopez Other [employer] Other 07-07-2022 10:20-0400 Body temperature 96.7 [degF] Akin Lopez Other [employer] Other 07-07-2022 10:20-0400 Body weight 85 kg Akin Lopez Other [employer] Other 07-07-2022 10:20-0400 Diastolic blood pressure 76 mm[Hg] Akin Lopez Other [employer] Other 07-07-2022 10:20-0400 Respiratory rate 18 /min Akin Lopez Other [employer] Other 07-07-2022 10:20-0400 SaO2% (BldA) [Mass fraction] 98 % Akin Lopez Other [employer] Other 07-07-2022 10:20-0400 Systolic blood pressure 132 mm[Hg] Akin Lopez Other [employer] Other 06-16-2022 14:48-0400 Body height 167.64 cm Curt Clark Work Phone: [facility] 250 DO Work Phone: 06-16-2022 14:48-0400 Body mass index (BMI) [Ratio] 30.18 kg/m2 Curt Clark Work Phone: [facility] 250 DO Work Phone: 06-16-2022 14:48-0400 Body surface area Derived from formula 1.94 m2 Curt Clark Work Phone: [facility] 250 DO Work Phone: 06-16-2022 14:48-0400 Body weight 84.82 kg Curt Clark Work Phone: [facility] 250 DO Work Phone: 06-16-2022 14:48-0400 Diastolic blood pressure 58 mm[Hg] Curt Clark Work Phone: [facility] 250 DO Work Phone: 06-16-2022 14:48-0400 Heart rate 70 /min Curt Clark Work Phone: [facility] 250 DO Work Phone: 06-16-2022 14:48-0400 Systolic blood pressure 112 mm[Hg] Curt Clark Work Phone: [facility] 250 DO Work Phone: 03-08-2022 10:57-0400 Blood Pressure Location Tyree PARK [facility] 03-08-2022 10:57-0400 Diastolic blood pressure 52 mm[Hg] Tyree PARK [facility] 03-08-2022 10:57-0400 Heart rate 69 /min Tyree PARK [facility] 03-08-2022 10:57-0400 Systolic blood pressure 113 mm[Hg] Tyree PARK [facility] 01-14-2022 13:20-0500 Body height 167.64 cm Akin Lopez Other [employer] Other 01-14-2022 13:20-0500 Body mass index (BMI) [Ratio] 30.34 kg/m2 Akin Lopez Other [employer] Other 01-14-2022 13:20-0500 Body weight 85.28 kg Akin Lopez Other [employer] Other 01-14-2022 13:20-0500 Diastolic blood pressure 86 mm[Hg] Akin Lopez Other [employer] Other 01-14-2022 13:20-0500 Respiratory rate 18 /min Akin Lopez Other [employer] Other 01-14-2022 13:20-0500 SaO2% (BldA) [Mass fraction] 99 % Akin Lopez Other [employer] Other 01-14-2022 13:20-0500 Systolic blood pressure 146 mm[Hg] Akin Lopez Other [employer] Other 09-30-2021 11:40-0500 Body height 167.64 cm Akin Lopez Other [employer] Other 09-30-2021 11:40-0500 Body mass index (BMI) [Ratio] 31.12 kg/m2 Akin Lopez Other [employer] Other 09-30-2021 11:40-0500 Body temperature 96.7 [degF] Akin Lopez Other [employer] Other 09-30-2021 11:40-0500 Body weight 87.45 kg Akin Lopez Other [employer] Other 09-30-2021 11:40-0500 Diastolic blood pressure 72 mm[Hg] Akin Lopez Other [employer] Other 09-30-2021 11:40-0500 Respiratory rate 18 /min Akin Lopez Other [employer] Other 09-30-2021 11:40-0500 SaO2% (BldA) [Mass fraction] 96 % Akin Lopez Other [employer] Other 09-30-2021 11:40-0500 Systolic blood pressure 111 mm[Hg] Akin Lopez Other [employer] Other 09-22-2021 10:38-0500 89.4 1 Curt Clark Work Phone: [facility] [employer] 250 DO Work Phone: Comment on above: [facility] 08-25-2021 14:44-0400 Body height 167.64 cm Curt Clark Work Phone: [employer] 250 DO Work Phone: 08-25-2021 14:44-0400 Body mass index (BMI) [Ratio] 30.67 kg/m2 Curt Clark Work Phone: [facility] 250 DO Work Phone: 08-25-2021 14:44-0400 Body surface area Derived from formula 1.96 m2 Curt Clark Work Phone: [facility] 250 DO Work Phone: 08-25-2021 14:44-0400 Body weight 86.18 kg Curt Clark Work Phone: [facility] 250 DO Work Phone: 08-25-2021 14:44-0400 Diastolic blood pressure 74 mm[Hg] Curt Clark Work Phone: [facility] 250 DO Work Phone: 08-25-2021 14:44-0400 Heart rate 68 /min Curt Clark Work Phone: [facility] 250 DO Work Phone: 08-25-2021 14:44-0400 Systolic blood pressure 126 mm[Hg] Curt Clark Work Phone: [facility] 250 DO Work Phone: Encounters Encounter Date Encounter Type Care Provider Facility Start: 01-07-2025 ambulatory Tyree Ulloa ty:EU [facility] Start: 09-19-2024 Non-patient / Non-visit MD Shannan Clark Work Phone: [facility] Work Phone: Start: 09-18-2024 Non-patient / Non-visit MD Shannan Clark Work Phone: [facility] Work Phone: Start: 09-18-2024 End: 09-19-2024 ambulatory Curt Clark Facility:[facility] Start: 09-18-2024 End: 09-19-2024 Evaluation and management of inpatient MD Curt Clark Work Phone: [facility] [place] [facility] Work Phone: Start: 09-18-2024 End: 09-19-2024 observation encounter MD Curt Clark Work Phone: [facility] Work Phone: Start: 09-14-2024 Non-patient / Non-visit MD Shannan Clark Work Phone: [facility] Work Phone: Start: 09-14-2024 End: 09-17-2024 Clinisync Result Encounter Temo PETERSON Work Phone: [facility] Unsolicited Start: 09-14-2024 End: 09-17-2024 Clinisync Result Encounter Temo PETERSON Work Phone: [facility] External [facility] Unsolicited Start: 08-20-2024 End: 08-20-2024 ambulatory MD Curt Clark Work Phone: [facility] Work Phone: Start: 08-20-2024 End: 08-20-2024 Patient encounter procedure MD Curt Clark Work Phone: [facility] Work Phone: Start: 08-20-2024 Non-patient / Non-visit MD Shannan Clark Work Phone: [facility] Work Phone: Start: 08-17-2024 End: 08-17-2024 ambulatory MD Curt Clark Work Phone: [facility] Work Phone: Start: 08-17-2024 End: 08-17-2024 Patient encounter procedure MD Curt Clark Work Phone: [facility] Work Phone: Start: 08-01-2024 ambulatory Curt Clark Facility :[facility] Start: 08-01-2024 Registered Recurring MD Curt Clark Work Phone: [facility] Work Phone: Start: 07-05-2024 End: 07-05-2024 ambulatory MD Curt Clark Work Phone: [facility] Work Phone: Start: 07-05-2024 End: 07-05-2024 Patient encounter procedure MD Curt Clark Work Phone: [facility] Work Phone: Start: 06-27-2024 Non-patient / Non-visit MD Shannan Clark Work Phone: [facility] Work Phone: Start: 06-06-2024 Registered Recurring MD Curt Clark Work Phone: [facility] Work Phone: Start: 05-31-2024 End: 05-31-2024 ambulatory MD Curt Clark Work Phone: [facility] Work Phone: Start: 05-31-2024 End: 05-31-2024 Patient encounter procedure MD Curt Clark Work Phone: [facility] Work Phone: Start: 05-23-2024 Non-patient / Non-visit MD Shannan Clark Work Phone: [facility] Work Phone: Start: 04-25-2024 Registered Recurring MD Curt Clark Work Phone: [facility] Work Phone: Start: 04-17-2024 End: 04-17-2024 Office outpatient visit 25 minutes Elicia Rhodes MD Work Phone: [facility] Comment on above: Essential hypertensi on (Primary Dx); Persistent atrial fibrillation with RVR (Multi); Aortic valve regurgitation, nonrheumatic; Ascending aorta dilation (CMS-HCC); Mixed hyperlipidemia; Pulmonary hypertension (Multi); Stage 3a chronic kidney disease (Multi); Multiple myeloma, remission status unspecified (Multi); Shortness of breath at rest; BMI 34.0-34.9,adult; Never smoked tobacco Start: 04-17-2024 End: 04-17-2024 ambulatory [facility] Start: 04-12-2024 End: 04-12-2024 Departed Referred MD Curt Clark Work Phone: [facility] Work Phone: Start: 04-12-2024 End: 04-12-2024 ambulatory MD Curt Clark Work Phone: [facility] Work Phone: Start: 04-12-2024 End: 04-12-2024 Patient encounter procedure MD Curt Clark Work Phone: [facility] Work Phone: Start: 03-14-2024 End: 03-14-2024 ambulatory ARTEMIO NICCI Not Available Start: 02-28-2024 Registered Recurring MD Curt Clark Work Phone: [facility] Work Phone: Start: 02-15-2024 Non-patient / Non-visit MD Shannan Clark Work Phone: [facility] Work Phone: Start: 01-27-2024 End: 01-27-2024 ambulatory MD Curt Clark Work Phone: [facility] Work Phone: Start: 01-27-2024 End: 01-27-2024 Patient encounter procedure MD Curt Clark Work Phone: [facility] Work Phone: Start: 01-27-2024 Registered Recurring MD Curt [facility] Work Phone: Start: 01-09-2024 End: 01-10-2024 ambulatory Tyree PARK Facility:[facility] Start: 01-04-2024 End: 01-04-2024 ambulatory MD Curt Clark Work Phone: [facility] Work Phone: Start: 01-04-2024 End: 01-04-2024 Patient encounter procedure MD Curt Clark Work Phone: [facility] Work Phone: Start: 12-27-2023 Non-patient / Non-visit MD Shannan Clark Work Phone: [facility] Work Phone: Start: 12-15-2023 Registered Recurring MD Curt Clark Work Phone: [facility] Work Phone: Start: 12-02-2023 End: 12-02-2023 ambulatory Curt Clark Other [facility] [employer] Other Start: 12-02-2023 Telephone encounter Curt Clark [facility] Start: 12-01-2023 End: 12-01-2023 ambulatory Curt Clark Other [facility] [employer] Other Start: 12-01-2023 Office outpatient vi sit 25 minutes Curt Clark [facility] Start: 12-01-2023 End: 12-01-2023 Patient encounter procedure MD Curt Clark Work Phone: [facility]- Start: 11-02-2023 End: 11-02-2023 Subsequent hospital visit by physician Jodi Bell Echo/Vasc Room 2 [facility] Comment on above: Aortic valve regurgi tation, nonrheumatic; Ascending aorta dilation (CMS/HCC); Pulmonary hypertension (CMS/HCC) Start: 11-02-2023 End: 11-02-2023 ambulatory [facility] Start: 10-17-2023 End: 10-17-2023 ambulatory Curt Clark Other [employer] Other Start: 10-17-2023 Telephone encounter Curt Clark [facility] Start: 10-13-2023 End: 10-13-2023 ambulatory Curt Clark Other [employer] Other Start: 10-13-2023 Telephone encounter Curt Clark [facility] Start: 10-04-2023 End: 10-04-2023 Office outpatient visit 25 minutes Elicia Rhodes MD Work Phone: [facility] Comment on above: Persistent atrial fi brillation with RVR (CMS/HCC) (Primary Dx); Aortic valve regurgitation, nonrheumatic; Ascending aorta dilation (CMS/HCC); Essential hypertension; Pulmonary hypertension (CMS/HCC); Stage 3a chronic kidney disease (CMS/HCC) Start: 10-04-2023 End: 10-04-2023 ambulatory [facility] Start: 09-26-2023 End: 09-26-2023 ambulatory Curt Clark Other [employer] Other Start: 09-26-2023 Office outpatient vi sit 15 minutes Curt Clark [facility] Start: 09-13-2023 End: 09-13-2023 ambulatory Curt Clark Other [employer] Other Start: 09-13-2023 Office outpatient vi sit 15 minutes Curt Clark [facility] Start: 08-31-2023 Office outpatient ne w 45 minutes Nehemias Fernandez II [facility] Start: 08-31-2023 End: 08-31-2023 ambulatory MD Curt Clark Work Phone: [facility] Work Phone: Start: 08-31-2023 End: 08-31-2023 Patient encounter procedure MD Curt Clark Work Phone: [facility] Start: 07-21-2023 Rx Renewal Curt Clark Work Phone: [facility] 250 DO Work Phone: Start: 07-19-2023 End: 07-19-2023 ambulatory MD Curt Clark Work Phone: [facility] Work Phone: Start: 07-19-2023 End: 07-19-2023 Registered Recurring MD Curt Clark Work Phone: [facility] Work Phone: Start: 07-19-2023 Registered Recurring MD Curt Clark Work Phone: [facility] Work Phone: Start: 07-15-2023 End: 07-15-2023 ambulatory Curt Clark Other [employer] Other Start: 07-15-2023 Telephone encounter Curt Clark [facility] Start: 07-08-2023 End: 07-08-2023 ambulatory Curt Clark Other [facility] [employer] Other Start: 07-08-2023 Telephone encounter Curt Clark [facility] Start: 07-04-2023 Rx Renewal Curt Clark Work Phone: [facility] 250 DO Work Phone: Start: 06-27-2023 End: 06-27-2023 ambulatory Curt Clark Other [facility] [employer] Other Start: 06-27-2023 Telephone encounter Curt Clark [facility] Start: 06-24-2023 End: 06-24-2023 ambulatory Curt Clark Other [employer] Other Start: 06-24-2023 Office outpatient vi sit 25 minutes Curt Clark [facility] Start: 06-23-2023 End: 06-23-2023 ambulatory Akin Lopez Other [employer] Other Start: 06-23-2023 Office outpatient vi sit 15 minutes Akin Lopez [facility] Start: 06-20-2023 End: 06-20-2023 ambulatory Curt Clark Other [employer] Other Start: 06-20-2023 Telephone encounter Curt Clark [facility] Start: 06-13-2023 Rx Renewal Curt Clark Work Phone: [facility] [employer] 730 DO Work Phone: Start: 05-04-2023 End: 05-04-2023 ambulatory Curt Clark Other [employer] Other Start: 05-04-2023 Telephone encounter Curt Clark [facility] Start: 04-26-2023 End: 04-26-2023 ambulatory Curt Clark Other [employer] Other Start: 04-26-2023 Office outpatient vi sit 25 minutes Curt Clark [facility] Start: 03-23-2023 Office outpatient vi sit 25 minutes Curt Clark Work Phone: [facility] [employer] 250 DO Work Phone: Start: 03-23-[address] Curt Clark Facility: Start: 03-16-2023 Telephone encounter Curt Clark [facility] Start: 03-16-2023 End: 03-17-[address] CURT CLARK [employer] Other Start: 03-15-2023 End: 03-15-2023 ambulatory Curt Clark Other [employer] Other Start: 03-15-2023 Office outpatient vi sit 15 minutes Curt Clark [facility] Start: 02-21-2023 End: 02-22-[address] ELICIA RHODES Facility:[facility] Start: 01-11-2023 End: 01-11-2023 ambulatory MD Curt Clark Work Phone: [facility] Work Phone: Start: 01-11-2023 End: 01-11-2023 Registered Recurring MD Curt Clark Work Phone: [facility] Work Phone: Start: 01-10-2023 End: 01-10-2023 Patient encounter procedure Tyree PARK [facility] Start: 01-06-2023 End: 01-07-[address] CURT CLARK Facility:[facility] Start: 12-22-2022 End: 12-22-2022 ambulatory Akin Lopez Other [employer] Other Start: 12-22-2022 Office outpatient vi sit 25 minutes Akin Lopez [facility] Start: 12-14-2022 End: 12-15-2022 ambulatory AKIN LOPEZ Facility:[facility] Start: 12-09-2022 End: 12-09-2022 ambulatory Curt Clark Other [employer] Other Start: 12-09-2022 Office outpatient vi sit 25 minutes Curt Clark [facility] Start: 08-09-[address] CURT CLARK Facil ity:[facility] Start: 07-13-2022 End: 07-13-2022 Registered Recurring MD Curt Clark Work Phone: [facility] Start: 07-12-2022 End: 07-13-2022 ambulatory CLAIRE Dayan CHOI Facility:[facility] Start: 07-07-2022 End: 07-07-2022 ambulatory Akin Lopez Other [facility] [employer] Other Start: 07-07-2022 Office outpatient vi sit 25 minutes Akin Lopez [facility] Start: 06-30-2022 End: 07-01-2022 ambulatory AKIN LOPEZ Facility:[facility] Start: 06-16-2022 Office outpatient vi sit 25 minutes Curt Clark Work Phone: [facility] 250 DO Work Phone: Start: 06-16-[address] Elicia Rhodes Facility: Start: 05-28-2022 End: 05-29-[address] CURT CLARK Facility:[facility] Start: 05-25-2022 End: 05-25-[address] CURT CLARK Facility:[facility] Start: 05-21-2022 End: 05-21-[address] CURT CLARK Facility:[facility] Start: 04-14-2022 End: 04-15-[address] CURT CLARK Facility:[facility] Start: 04-07-2022 End: 04-08-2022 ambulatory OZ SOLER Facility:[facility] Start: 03-08-2022 End: 03-08-2022 Patient encounter procedure Tyree PARK [facility] Start: 02-25-2022 Rx Renewal Curt Clark Work Phone: [facility] 250 DO Work Phone: Start: 02-23-2022 End: 02-23-2022 ambulatory Akin Lopez Other [facility] [employer] Other Start: 02-23-2022 Telephone encounter Akin Lopez [facility] Start: 01-14-2022 End: 01-14-2022 ambulatory Akin Lopez Other [facility] [employer] Other Start: 01-14-2022 Office outpatient vi sit 25 minutes Akin Lopez [facility] Start: 10-12-2021 Rx Renewal Curt Clark Work Phone: [facility] [employer] 250 DO Work Phone: Start: 09-30-2021 End: 09-30-2021 ambulatory Akin Lopez Other [facility] [employer] Other Start: 09-30-2021 Office outpatient vi sit 25 minutes Akin Lopez [facility] Start: 09-30-2021 Telephone encounter Akin Lopez [facility] Start: 08-25-2021 Office outpatient vi sit 25 minutes Curt Clark Work Phone: [facility] 250 DO Work Phone: Start: 07-02-2021 End: 07-02-2021 ambulatory Tondra Mapus Other [facility] [employer] Other Start: 07-02-2021 Telephone encounter Tondra Mapus [facility] Procedures Date Procedure [...] wave lithotripsy of calculus of kidney Tyree PRAK Start: 02-09-2018 Extracorporeal shock wave lithotripsy of [...] Visit [facility] [address] [place] [id number] Liberty Rossi MD [address] [place] [address] [facility] Start: 10-15-2024 End: 10-15-2024 Patient encounter procedure 10/15/2024 11:20 AM EST Office Visit [facility] [address] [place] [address] Elicia Rhodes MD [address] [place] [address] [facility] Start: 09-19-2024 [facility] Start: 09-19-2024 Administration of prophylactic treatment [facility] Start: 09-19-2024 End: 09-19-2024 Patient encounter procedure 09/19/2024 9:40 AM EST Office Visit [facility] [address] [place] [address] Artemio Grajeda NP [address] [place], [place] [id number] [facility] [address] Start: 09-18-2024 End: 09-18-2024 Referral to rehabilitation physician [facility] Start: 09-18-2024 End: 09-18-2024 [facility] Start: 09-18-2024 Physical therapy procedure [facility] Start: 09-18-2024 Referral to occupational therapist [facility] Start: 09-18-2024 End: 09-18-2024 [facility] Start: 09-18-2024 Hospital admission [facility] Start: 07-15-2024 Influenza vaccination Influenza Vaccine (Season Ended) [facility] Start: 04-17-2024 End: 04-17-2025 Lipid 1996 panel - Serum or Plasma Lipid Panel Lab Routine Mixed hyperlipidemia Expected: 04/17/2024 (Approximate), Expires: 04/17/2025 [facility] Service Area Work Phone: Comment on above: Expected: 04/17/2024 (Approximate), Expi res: 04/17/2025 Start: 04-17-2024 End: 04-17-2024 Patient encounter procedure 04/17/2024 1:40 PM EDT Office Visit [address] [place] [id number] Elicia Rhodes MD [address] [facility] [address] [place] [address] [facility] Start: 04-13-2024 Bacteria identified in Urine by Culture [facility] Start: 04-12-2024 Bacteria identified in Urine by Culture [facility] Start: 11-08-2023 Glaucoma screening Diabetes: Retinopathy Screening [facility] Start: 11-02-2023 End: 11-02-2023 Patient encounter procedure 11/02/2023 10:45 AM EST Appointment [place] [id number] [facility] [address] [place] [address] [facility] Start: 10-04-2023 FUV, Provider: Elicia Rhodes, Status: Pen, Time: 2:10 PM FUV, Provider: Elicia Rhodes, Status: Pen, Time: 2:10 PM [facility] [place] [facility] 250 DO Work Phone: Start: 10-04-2023 End: 10-04-2025 Heart Transthoracic Transthoracic Echo (TTE) Complete Echocardiography Routine Aortic valve regurgitation, nonrheumatic Ascending aorta dilation (CMS/HCC) Pulmonary hypertension (CMS/HCC) Expected: 10/04/2023 (Approximate), Expires: 10/04/2025 [facility] Service Area Work Phone: Comment on above: Expected: 10/04/2023 (Approximate), Expi res: 10/04/2025 Start: 07-19-2023 [facility] Start: 07-15-2023 Influenza vaccination Influenza Vaccine (#1) [facility] Start: 03-23-2023 FUV, Provider: Elicia Rhodes, Status: Pen, Time: 2:20 PM FUV, Provider: Elicia Rhodes, Status: Pen, Time: 2:20 PM [facility] 250 DO Work Phone: Start: 01-04-2023 [facility] Start: 08-23-2022 [facility] Start: 08-17-2022 End: 08-17-2022 [facility] Start: 07-13-2022 [facility] Start: 06-28-2022 [facility] Start: 05-31-2022 [facility] Start: 05-26-2022 [facility] Start: 05-25-2022 FUV, Provider: Elicia Rhodes, Status: Pen, Time: 2:20 PM [facility] 250 DO Work Phone: Start: 04-13-2022 [facility] Start: 03-02-2022 [facility] Start: 01-18-2022 [facility] Start: 01-18-2022 [facility] Start: 01-18-2022 End: 01-18-2022 [facility] Start: 01-18-2022 [facility] Start: 01-11-2022 [facility] Start: 12-23-2021 [facility] Start: 12-23-2021 [facility] Start: 11-03-2021 [facility] Start: 10-06-2021 [facility] Start: 09-08-2021 [facility] Start: 08-25-2021 [facility] Start: 08-11-2021 [facility] Start: 08-11-2021 [facility] Start: 07-14-2021 [facility] Start: 07-14-2021 [facility] Start: 07-09-2021 End: 07-09-2021 [facility] Start: 06-16-2021 [facility] Start: 05-19-2021 End: 05-19-2021 [facility] Start: 05-19-2021 [facility] Start: 04-21-2021 [facility] Start: 04-09-2021 [facility] Start: 03-24-2021 [facility] Start: 02-24-2021 [facility] Start: 01-12-2021 End: 01-12-2021 [facility] Start: 01-06-2021 [facility] Start: 01-01-2021 [facility] Start: 12-02-2020 [facility] Start: 11-04-2020 [facility] Start: 10-07-2020 [facility] Start: 09-09-2020 [facility] Start: 08-12-2020 [facility] Start: 07-15-2020 [facility] Start: 06-17-2020 [facility] Start: 05-20-2020 [facility] Start: 04-16-2020 [facility] Start: 03-19-2020 [facility] Start: 01-09-2020 [facility] Start: 01-09-2020 [facility] Start: 01-03-2020 [facility] Start: 11-27-2019 End: 11-28-2019 [facility] Start: 10-29-2019 [facility] Start: 10-17-2019 [facility] Start: 09-05-2019 [facility] Start: 09-05-2019 [facility] Start: 07-25-2019 [facility] Start: 07-25-2019 [facility] Start: 06-13-2019 [facility] Start: 06-13-2019 [facility] Start: 05-02-2019 [facility] Start: 04-04-2019 [facility] Start: 03-07-2019 [facility] Start: 02-07-2019 [facility] Start: 01-10-2019 [facility] Start: 11-15-2018 [facility] Start: 10-18-2018 [facility] Start: 09-20-2018 [facility] Start: 08-23-2018 [facility] Start: 07-12-2018 [facility] Start: 06-14-2018 [facility] Start: 05-18-2018 [facility] Start: 05-09-2018 [facility] Start: 04-19-2018 [facility] Start: 03-22-2018 [facility] Start: 02-15-2018 [facility] Start: 01-18-2018 [facility] Start: 12-21-2017 [facility] Start: 08-24-2017 [facility] Start: 07-27-2017 [facility] Start: 2002 RSV patients and/or patients aged 60+ years (1 - 1-dose 60+ series) RSV patients and/or patients aged 60+ years (1 - 1-dose 60+ series) [facility] Start: 1964 DTaP/Tdap/Td Vaccines (1 - Tdap) DTaP/Tdap/Td Vaccines (1 - Tdap) [facility] Start: 1961 Urine screening for protein Diabetes: Urine Protein Screening [facility] Start: 1961 Zoster Vaccines (1 of 2) Zoster Vaccines (1 of 2) [facility] Start: 1952 Diabetic foot examination Diabetes: Foot Exam [facility] Start: 1948 Pneumococcal Vaccine: 65+ Years (1 - PCV) Pneumococcal Vaccine: 65+ Years (1 - PCV) [facility] Start: 1948 Pneumococcal Vaccine: 65+ Years (1 of 2 - PCV) Pneumococcal Vaccine: 65+ Years (1 of 2 - PCV) [facility] Start: 1947 COVID-19 Vaccine (#1) COVID-19 Vaccine (#1) [facility] Start: 1942 Hemoglobin A1c measurement Diabetes: Hemoglobin A1C [facility] Start: 1942 Lipid panel Lipid Panel [facility] Start: 1942 Medicare Annual Wellness Visit Medicare Annual Wellness Visit (AWV) [facility] Start: 1942 Yearly Adult Physical Yearly Adult Physical [facility] Anion gap measurement [facility] Basophils [#/volume] in Blood by Automated count [facility] Basophils/100 leukocytes in Blood by Automated count [facility] Comprehensive metabo lic 2000 panel - Serum or Plasma [facility] Work Phone: Comprehensive metabo lic 2000 panel - Serum or Plasma [facility] Comprehensive metabo lic 2000 panel - Serum or Plasma [facility] Comprehensive metabo lic 2000 panel - Serum or Plasma [facility] Comprehensive metabo lic 2000 panel - Serum or Plasma [facility] DXA Skeletal system.axial Views for bone density [facility] Work Phone: DXA Skeletal system.axial Views for bone density [facility] Eosinophils/100 leukocytes in Blood by Automated count [facility] Erythrocyte distribution width [Ratio] by Automated count [facility] Erythrocytes [#/volu me] in Blood [facility] Hematocrit [Volume Fraction] of Blood [facility] Hemoglobin [Mass/volume] in Blood [facility] Leukocytes [#/volume ] corrected for nucleated erythrocytes in Blood by Automated coun [facility] Leukocytes [#/volume ] in Blood [facility] Lymphocytes [#/volum e] in Blood by Automated count [facility] Lymphocytes/100 leukocytes in Blood by Automated count [facility] MCH [Entitic mass] b y Automated count [facility] MCHC [Mass/volume] b y Automated count [facility] MCV [Entitic volume] by Automated count [facility] Monocytes [#/volume] in Blood by Automated count [facility] Monocytes/100 leukocytes in Blood by Automated count [facility] Neutrophils [#/volum e] in Blood by Automated count [facility] Neutrophils/100 leukocytes in Blood by Automated count [facility] Nucleated erythrocyt es [Presence] in Blood by Automated count [facility] Patient Education Know your Meds [facility] Work Phone: Patient referral [facility] Work Phone: Platelet mean volume [Entitic volume] in Blood by Automated count [facility] Platelets [#/volume] in Blood [facility] Radiologic examinati on osseous survey [facility] Work Phone: Radiologic examinati on osseous survey [facility] Radiologic examinati on osseous survey [facility] Radiologic examinati on osseous survey [facility] Renal function 1999 panel - Serum or Plasma [facility] Renal function 1999 panel - Serum or Plasma [facility] End: 11-02-2023 US Heart Transthoracic [facility] Service Area Work Phone: Comment on above: Once for 1 Occurrences starting 11/02/20 until 11/02/2023 [facility] Payers Date Payer Category Payer Private Health Insurance [facility] [id number] 2022 Unknown [id number] 2021 Medicare [id number] 2010 Unknown 2010 Unknown [id number] 2007 Medicare [id number] 1959 Medicare [id number] 1959 Self-pay [id number] 1959 Unknown [id number] 2.16.840.1.027713.19 1942 Unknown [id number] 2.16.840.1.853822.3.579. 2.593 1942 Unknown [id number] 2.16.840.1.014754.3.579. 2.593 1942 Unknown [id number] 2.16.840.1.225013.3.579. 2.593 1942 Unknown [id number] 2.16.840.1.683409.3.579. 2.593 1942 Unknown [id number] 2.16.840.1.941137.3.579. 2.593 1942 Unknown [id number] 2.16.840.1.358820.3.579. 2.593 1942 Unknown [id number] 2.16.840.1.522408.3.579. 2.593 1942 Unknown [id number] 2.16.840.1.180671.3.579. 2.593 1942 Unknown [id number] 2.16.840.1.391838.3.579. 2.593 1942 Unknown [id number] 2.16.840.1.290421.3.579. 2.593 1942 Unknown [id number] 2.16.840.1.618345.3.579. 2.593 1942 Unknown [id number] 2.16.840.1.564241.3.579. 2.593 1942 Unknown [id number] 2.16.840.1.845996.3.579. 2.593 1942 Unknown [id number] 2.16.840.1.081077.3.579. 2.593 1942 Unknown [id number] 2.16.840.1.007597.3.579. 2.356 1942 Unknown [id number] 2.16.840.1.813205.3.579. 2.356 1942 Unknown [id number] 2.16.840.1.062099.3.579. 2.727 1942 Unknown [id number] 2.16.840.1.203636.3.579. 2.727 1942 Unknown [id number] 2.16.840.1.867486.3.579. 2.727 1942 Unknown [id number] 2.16.840.1.487508.3.579. 2.1259 1942 Unknown [id number] 2.16.840.1.359691.3.579. 2.1244 1942 Unknown [id number] 2.16.840.1.130164.3.579. 2.1244 1942 Unknown [id number] 2.16.840.1.575711.3.579. 2.1246 Unknown [id number] 2.16.840.1.133327.3.579. 2.593 Unknown [id number] 2.16.840.1.538759.3.579. 2.531 Unknown [id number] 2.16.840.1.445296.3.579. 2.531 Unknown [id number] 2.16.840.1.846645.3.579. 2.531 Social History Date Type Detail Facility Start: 10-04-2023 End: 03-14-2024 Daily caffeine consumption, 2-3 servings a day Daily caffeine consumption, 2-3 servings a day -[facility] 250 DO Work Phone: Start: 03-08-2022 End: 09-18-2024 Tobacco smoking status Never smoked tobacco (finding) [facility] Tobacco smoking status Never [facility] Start: 10-04-2023 End: 03-14-2024 Sex Assigned At Female [facility] [employer] Other Start: 1940 Sex Assigned At Female [facility] Start: 10-04-2023 End: 03-05-2024 Tobacco use and exposure Smokeless tobacco non-user [facility] Work Phone: Start: 10-04-2023 End: 03-14-2024 Alcohol intake Lifetime non-drinker (finding) [facility] Work Phone: Start: 1940 Sex Assigned At Not on file U [facility] Work Phone: Start: 09-24-2023 End: 04-17-2024 Exposure to SARS-CoV-2 (event) Not sure [facility] Medical Equipment Procedure Code Equipment Code Equipment Origin al Text Equipment Identifier Dates Lancets 100 pack Start: 07-10-2018 Goals Date Patient Goal Desired Activity /State Functional Status Date Assessment Result Facility 09-19-2024 Functional status Patient at Baseline [facility] Work Phone: 01-10-2023 Functional Status N/A [facility] Mental Status Date Assessment Result Facility 09-19-2024 Cognitive function Cognitive Sta tus Patient at Baseline [facility] Work Phone: Clinical Notes 07-27-2017 to 09-18-2024 Note Date & Type Note Facility 09-18-2024 Consult note Note Date/Time September 18, 2024 11:34am [facility] [address] [place] [address] Physiatry (Rehab) Consult Note Signed Patient: Hailee Trivedi MR#: [id number] : 1940 Acct:[id number] Age/Sex: 84 / F Adm Date: 4 Loc: Room: [address] [place] [address] Type: ADM INOo Attending Dr: Trent Patterson [...] well. She had also recently been to [place] ER and was diagnosed with a UTI. [...] noted below or in HPI [facility] Medical History Multiple myeloma Type 2 diabetes [...] subcut BID 07/05/24 [History Confirmed 09/17/24] omega 8-tlf-oxc-fish oil 1,000 mg (120 mg-180 mg) capsule [...] % (Auto) 87.9 Lymph % (Auto) 4.8 Cooper % (Auto) 4.9 Eos % (Auto) 2.1 Baso % (Auto) 0.3 Nucleat RBC Rel Count 0.0 Neut # (Auto) 10.6 H Lymph # (Auto) 0.6 L Cooper # (Auto) 0.6 Eos # (Auto) 0.3 [...] Appearance Clear Urine pH 5.5 Ur Specific [place] 1.023 Urine Protein 50 H Urine Glucose [...] MPV Neut % (Auto) Lymph % (Auto) Cooper % (Auto) Eos % (Auto) Baso % (Auto) Nucleat RBC Rel Count Neut # (Auto) Lymph # (Auto) Cooper # (Auto) Eos # (Auto) Baso # [...] Color Urine Appearance Urine pH Ur Specific [place] Urine Protein Urine Glucose (UA) Urine Ketones [...] % (Auto) 81.6 Lymph % (Auto) 6.6 Cooper % (Auto) 8.7 Eos % (Auto) 2.3 Baso % (Auto) 0.8 Nucleat RBC Rel Count 0.0 Neut # (Auto) 8.0 H Lymph # (Auto) 0.7 L Cooper # (Auto) 0.9 H Eos # (Auto) [...] Color Urine Appearance Urine pH Ur Specific [place] Urine Protein Urine Glucose (UA) Urine Ketones [...] time. I would recommend discharge to a group home facility for continued therapy services. -Continue early mobility and OOB therapy. -Thank you for the consult. Patient was personally seen by me, Dr. Diaz, on the day of encounter, reviewed the history and the relevant portions of the chart, including current orders, allied health and cloud consultant notes, labs/imaging and performed chahal elements of exam and I formulated the plan of care and facilitated the medical decision making. I completed a substantive portion of this encounter, the medical decision making portion of this note in its entirety, including Allied health note review, nursing note review, cloud consultant note review, discussion with nursing and case management, and more than 50% of my time was spent on counseling and coordination of care, time spent 65 minutes Documented By: Cristiano Diaz MD [id number] Signed By: <Electronically signed by Cristiano Diaz MD> 09/18/24 6326 [facility] Work Phone: 1(948) 753-297411-05-2024 Progress note Author Trent Patterson [facility] September 18, 2024 1:48pm Note Date/Time September 18, 2024 1 :41pm [facility] [address] [place] [address] Hospitalist Progress Note Signed Patient: Hailee Trivedi MR#: [id number] : 1940 Acct:[id number] Age/Sex: 84 / F Adm Date: 4 Loc: Room: [address] [place] [address] Type: ADM INOo Attending Dr: Trent Patterson [...] of care and confirmed it with the resident/student/PIPE CAULKER. This patient presented to the emergency department complaining of fatigue, diarrhea, lower abdominal pain. She states that she recovered from COVID about 2 weeks ago. This past Tuesday she presented herself to [place] and was diagnosed with a UTI and [...] Insuln.Pen SUBCUT 09/18/25 07:59 Not Given TID.WM.HS [facility] Protocol Insulin Human NPH 15 units 09/18/24 [...] Syringe IV-PUSH 09/18/25 05:59 Not Given QSHIFT [facility] A&P - Hospitalist Assessment/Plan (1) Chest pain: (2) CKD (chronic kidney disease) stage 4, GFR 15-29 ml/min: (3) Weakness: Plan . Documented By: Trent Patterson MD 09/18/24 1334 Signed By: <Electronically signed by Trent Patterson MD> 09/18/24 1348 <Electronically signed by DO MARK Everett> 09/18/24 1342 [facility] Work Phone: 1(952) 855-758411-05-2024 History and physical note Author Pool Buck [facility] September 18, 2024 5:23am Note Date/Time September 18, 2024 1 :33am [facility] EN[facility] [address] [place] [address] Hospitalist H&P Signed Patient: Hailee Trivedi MR#: [id number] : 1940 Acct:[id number] Age/Sex: 84 / F Adm Date: 4 Loc: Room: [address] [place] [address] Type: ADM INOo Attending Dr: Pool Buck MD Copies to: MD Curt Boogie MD Paula G Smith, NURSING HOME PHYSICIAN~ HPI DATE OF EXAMINATION: 09/18/24 CHIEF COMPLAINT: [...] stools are black. She reports going to [facility] emergency room Tuesday and they diagnosed her [...] 30.4. ABG with a pH of 7.34, tofowt06.9. CMP with a serum bicarb of 17.5, [...] will be admitted as observation to the [facility] floor Review of Systems Review of Systems Review of systems: A 10 point review of systems was obtained, negative unless noted in the HPI or below. [facility] Medical History Multiple myeloma Type 2 diabetes [...] subcut BID 07/05/24 [History Confirmed 09/17/24] omega 2-kei-hgd-fish oil 1,000 mg (120 mg-180 mg) capsule [...] % (Auto) 4.8 % (.) 09/17/24 21:16 Cooper % (Auto) 4.9 % (.) 09/17/24 21:16 Eos % (Auto) 2.1 % (.) 09/17/24 21:16 Baso % (Auto) 0.3 % (.) 09/17/24 21:16 Nucleat RBC Rel Count 0.0 /100 WBC (0-0.5) 09/17/24 21:16 Neut # (Auto) 10.6 x10E3/uL (1.8-7.7) H 09/17/24 21:16 Lymph # (Auto) 0.6 x10E3/uL (1.00-4.8) L 09/17/24 21:16 Cooper # (Auto) 0.6 x10E3/uL (0.0-0.8) 09/17/24 21:16 [...] pH 5.5 (5.0-9.0) 09/17/24 21:56 Ur Specific [place] 1.023 (1.001-1.030) 09/17/24 21:56 Urine Protein 50 [...] signed by Pool Buck MD> 09/18/24 0523 [facility] Work Phone: 1([phone]) 305-816506-04-2024 History of Present illness Narrative* Elicia Rhodes [...] recurrence. She did have noninvasive assessment at [facility], which was negative. Couple of years ago. [...] once daily.,Disp: , Rfl: fish oil concentrate ([place]-3) 120-180 mg capsule, Take 1 capsule (1 [...] recurrence. She did have noninvasive assessment at [facility], which was negative. Couple of years ago. [...] once daily.,Disp: , Rfl: fish oil concentrate ([place]-3) 120-180 mg capsule, Take 1 capsule (1 [...] exam, discussion and plan. documented in this [facility] Work Phone: 1(593) 901-739106-04-2024 Instructions* Patient Instructions* Daisy Mane LPN - [...] through Care Everywhere. 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 Will see him as scheduled on 12/05. 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 Had treated neck in the past. Pt tolerated well. [facility] Other 12-04-2023 Evaluation note* Encounter Date Diagnosis Assessment Notes Treatment Notes Treatment Clinical Notes Oct, Type 2 diabetes mellitus with hyperglycemia (ICD-10 - E11.65) [facility] Other 11-30-2023 Evaluation note* Encounter Date Diagnosis Assessment Notes Treatment Notes Treatment Clinical Notes Sep, Type 2 diabetes mellitus with hyperglycemia (ICD-10 - E11.65) [facility] Other 11-21-2023 History of Present illness Narrative* [...] recurrence. She did have noninvasive assessment at [facility], which was negative. Couple of years ago. [...] once daily.,Disp: , Rfl: fish oil concentrate ([place]-3) 120-180 mg capsule, Take 1 capsule (1 [...] chronic kidney disease (CMS/HCC) [facility] Work Phone: 1([phone]) 471-164111-21-2023 Instructions* Patient Instructions* Daisy Mane LPN - [...] Follow up 6 [facility] Work Phone: 1([phone]) 248-763111-13-2023 Evaluation note* Encounter Date Diagnosis Assessment Notes Treatment Notes Treatment Clinical Notes Sep, Bronchitis (ICD-10 - J40) Discussed diagnosis with patient. Finish entire course of antibiotic. Tessalon Pearles ordered to take as needed for cough. Increase fluids and rest. Mrzx-rju-myldrsi antipyretics as needed. Warning signs and symptoms reviewed with patient today. Patient to go immediately to the ER should she experience any of these. Patient to notify office should her symptoms persist and not improve. Patient verbalizes understanding and agrees to treatment plan. [facility] Other 10-31-2023 Evaluation note* Encounter Date Diagnosis Assessment Notes Treatment Notes Treatment Clinical Notes Aug, Lumbar pain (ICD-10 - M54.50) Hx of falls - will check lumbar XR to r/o fracture Aug, Left flank pain (ICD-10 - R10.9) r/o nephrolith Aug, Bronchitis (ICD-10 - J40) Finish antibiotics. Take prednisone. Understands it will increase her glucose. [facility] Other 10-18-2023 Evaluation note* Encounter Date Diagnosis Assessment Notes Treatment Notes Treatment Clinical Notes Aug, Acute pain of left knee (ICD-10 - M25.562) Aug, Other Patient's not having any pain today. At this point she can call me in the future if she needs me [facility] Other 08-11-2023 Evaluation note* Encounter Date Diagnosis Assessment Notes Treatment Notes Treatment Clinical Notes Jun, UTI symptoms (ICD-10 - R39.9) Will treat empirically as she is unable to provide a sample today. Jun, Weakness (ICD-10 - R53.1) Agrees to for PT and possible help with medications. Jun, Balance disorder (ICD-10 - R26.89) as above [facility] Other 08-10-2023 Evaluation note* Encounter Date Diagnosis [...] sugars are above the goal. Continue follow-up [facility] PCP for diabetes mellitus management. She [...] to the CKD. Continue oral sodium bicarbonate. [facility] Other 06-13-2023 Evaluation note* Encounter Date Diagnosis Assessment Notes Treatment Notes Treatment Clinical Notes Apr, Vasovagal syncope (ICD-10 - R55) Nearly passed out in office, BP down to 90/58. Staff helped her to friends car. Report called to Dr. Agudelo at [facility] ER. Likely due to taking bp med again, when her coat operator insulator has d/c it. Pt sent to ER. [...] med. She agrees to HH and PT [facility] Other 05-03-2023 NotePROCEDURE: XR KNEE LT 1_2 [...] by: WILD SOLO Date: 2023-03-16 09:18[facility]05-02-2023 Evaluation note* Encounter Date Diagnosis Assessment Notes Treatment Notes Treatment Clinical Notes March, Left lateral knee pain (ICD-10 - M25.562) Discussed possible PT. Has improved overall with rest and stretching. Will start with Xray. Recommended tylenol products. March, Hypertension (ICD-10 - I10) chronic. stable - controlled on present meds [facility] Other 02-28-2023 Progress note Author Misti Connolly [facility] January 11, 2023 11:19am Note Date/Time January 11, 2023 10:42am [facility] [place] [address] Hem/Onc Follow Up Note - OP Signed Patient: Hailee Trivedi MR#: [id number] : 1940 Acct:[id number] Age/Sex: 82 / F Type: REG RCR [...] neurologist. Head CT done March 2022 at [facility] without new/acute findings. 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 [...] been trying to transfer her care to [place] oncology clinic but they are not up [...] x 1 week, sees neurology (followed at [facility]) who have ruled out stroke, [...] for coordination of care (as documented) and jids-ia-ltaj counseling of patient and/or family. [facility] - Medical History Medical History: Medical History [...] 01/19/22 09:00 KB (Rec: 01/19/22 09:01 KB [id number]) Distress Screening Distress screening follow up: Will follow with patient for any needs at next visit. Anxious about making next appointment time. - Lab Results Diagram of Most Recent CBC and CMP 01/04/23 14:45 01/04/23 14:45 Labs - Last 7 Days 01/04/23 14:45: Free [place] LC, Quant 26.9 H, Free Lambda LC, Quant 12.0, Free [place]/Lambda Ratio 2.24 H 01/04/23 14:45: PHA Creatinine [...] % (Auto) 54.8, Lymph % (Auto) 34.1, Cooper % (Auto) 8.0, Eos % (Auto) 2.3, Baso % (Auto) 0.8, Nucleat RBC Rel Count 0.0, Neut # (Auto) 4.9, Lymph # (Auto) 3.0, Cooper # (Auto) 0.7, Eos # (Auto) 0.2, [...] <Electronically signed by RAMAKRISHNA Connolly> 01/11/23 1119 [facility] Work Phone: 1([phone]) 122-807902-27-2023 Hospital Discharge instructions Patient Education 01/10/2023 08:23:12 [...] include: ?Spinach. ?Rhubarb. ?Beets. ?Potato chips and greenlandic fries. ?Nuts. If you regularly take a diuretic medicine, make sure to eat at least 1 2 fruits or vegetables high in potassium each day. These include: ?Avocado. ?Banana. ?[place], prune, carrot, or tomato juice. ?Baked potato. [...] Casseroles. Pizza. Lasagna. Frozen meals. Potato chips. Serbian fries. Summary You can reduce your risk [...] 02/25/2012 Document Revised: 02/20/2020 Document Reviewed: 10/11/[address] [employer] Patient Education 2020 [employer]. Follow Up Care 03/08/2022 11:44:08 With:XAVIER VELAZQUEZ, Tyree Rivers, URL Address: [facility] [address] , [place] [address]- When: Unknown [facility] 02-08-2023 Evaluation note* Encounter Date Diagnosis Assessment [...] sugars are above the goal. Continue follow-up [facility] PCP for diabetes mellitus management. She [...] to the CKD. Continue oral sodium bicarbonate. [facility] Other 01-26-2023 Evaluation note* Encounter Date Diagnosis Assessment Notes Treatment Notes Treatment Clinical Notes Nov, Paroxysmal atrial fibrillation (ICD-10 - I48.0) Patient understands to restart all of her medicines and take them as prescribed Will notify her coat operator insulator of this situation. Nov, Wart of face (ICD-10 - B07.9) Small wart on her face was treated with cryo freeze without issue pt tolerated procedure well Nov, CKD (chronic kidney disease), stage IV (ICD-10 - N18.4) Discussed follow-up appointment with Dr. Jane Nov, Multiple myeloma (ICD-10 - C90.00) Stable on present appointments and treatment [facility] Other 10-04-2022 Progress note Author Claire Choi [facility] August 17, 2022 1:48pm Note Date/Time August 03, 2022 4:57pm [facility] [place] [address] Hem/Onc Follow Up Note - OP Signed with Addenda Patient: Hailee Trivedi MR#: [id number] : 1940 Acct:[id number] Age/Sex: 82 / F Type: REG RCR [...] neurologist. Head CT done March 2022 at [facility] without new/acute findings. May suggest brain MRI if no other etiologies identified - History of Present Illness Chief Complaint: Patient is here for a 3 month follow up with outside labs for review. States she has had ongoing lower back pain for the last month or so. Patient scheduled for Cycle 55 Daratumumab today. 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 [...] been trying to transfer her care to [facility] but they are not up [...] x 1 week, sees neurology (followed at [facility]) who have ruled out stroke, [...] for coordination of care (as documented) and tgxj-ld-fjfb counseling of patient and/or family. [facility] - Medical History Medical History: Medical History [...] 01/19/22 09:00 KB (Rec: 01/19/22 09:01 KB [id number]) Distress Screening Distress screening follow up: Will [...] signed by Claire Choi II, DO> 08/03/221658 [facility] Work Phone: 1([phone]) 415-885209-20-2022 Progress note Author Claire Choi [facility] August 03, 2022 5:01pm Note Date/Time August 03, 2022 5:00pm [facility] [place] [address] Hem/Onc Follow Up Note - OP Signed Patient: Hailee Trivedi MR#: [id number] : 1940 Acct:[id number] Age/Sex: 82 / F Type: REG RCR [...] neurologist. Head CT done March 2022 at [facility] without new/acute findings. May suggest brain MRI if no other etiologies identified - History of Present Illness Chief Complaint: Patient is here for a 3 month follow up with outside labs for review. States she has had ongoing lower back pain for the last month or so. Patient scheduled for Cycle 55 Daratumumab today. 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 [...] been trying to transfer her care to [facility] but they are not up [...] x 1 week, sees neurology (followed at [facility]) who have ruled out stroke, [...] for coordination of care (as documented) and pgyz-ud-ling counseling of patient and/or family. [facility] - Medical History Medical History: Medical History [...] 01/19/22 09:00 KB (Rec: 01/19/22 09:01 KB [id number]) Distress Screening Distress screening follow up: Will [...] by Claire Choi II, DO> 08/03/22 170 [facility] Work Phone: [phone]) 345-681508-24-2022 Evaluation note* Encounter Date Diagnosis Assessment Notes [...] then call office. 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 Continue follow-up [facility] PCP for diabetes mellitus management. She [...] (IC D-10 - C90.00) Follows with Oncology [facility] Other 07-08-2022 History general Narrative - Reported* [...] Hospitalization History [facility] Hospitalization History COVID 10/2021 [facility] Other 07-08-2022 History general Narrative - Reported* [...] Medical History A-FIB Medical History VERTIGO PER [facility] 06/19/2023 Surgical History cholecystectomy Surgical History total hysterectomy 1989 Surgical History hemorrhoidectomy Surgical History CHEMO 06/2016 Surgical History lithotripsey 03/09/18 Surgical History Lithotripsey 02-09-2018 Surgical History left kidney stent 12-27-19 Surgical History LITHOTRIPSEY 01/24/2020 Surgical History STENT REMOVAL 03/03/2021 Surgical History KIDNEY STONES X 3 WITH LASER 02/19/2021 Hospitalization History SEE ABOVE SURGERY Hospitalization History [facility] Hospitalization History COVID 10/2021 [facility] Other 05-31-2022 Progress note Author Misti Connolly [facility] April 13, 2022 11:35am Note Date/Time April 13, 2022 9:33a m [facility] at [address] [address] Hem/Onc Follow Up Note - OP Signed Patient: Hailee Trivedi MR#: [id number] : 1940 Acct:[id number] Age/Sex: 81 / F Type: REG RCR [...] neurologist. Head CT done March 2022 at [facility] without new/acute findings. May suggest brain MRI if no other etiologies identified Follow Up Instructions: Irma today and continue every 6 weeks myeloma labs on irma days here cbc, cmp at [facility] prior to treatment follow-up with Dr. Quiroga in 3mo - History of Present Illness Chief Complaint: Patient is here today for 2 month follow up visit for multiple myeloma. 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 [...] been trying to transfer her care to [facility] but they are not up [...] x 1 week, sees neurology (followed at [facility]) who have ruled out stroke, [...] 6 mg and cyclophosphamide 300 mg IV [id number]/15/2015, developed grade 2 anemia, fatigue and grade [...] for coordination of care (as documented) and gulf-yz-bopg counseling of patient and/or family. [facility] - Medical History Medical History: Medical History [...] 01/19/22 09:00 KB (Rec: 01/19/22 09:01 KB [id number]) Distress Screening Distress screening follow up: Will follow with patient for any needs at next visit. Anxious about making next appointment time. - Lab Results Diagram of Most Recent CBC and CMP 04/08/22 13:20 04/08/22 13:20 Labs - Last 7 Days 04/08/22 13:20: Serum Total Protein 5.9 L, Albumin (Send Out) 3.6, Globulin (PEP) 2.3, Albumin/Globulin (PEP) 1.6, Elnax-7-Ycvyluwbi 0.1, Njlml-5-Ppyqbkqib 0.8, Beta Globulins 0.7, Gamma Globulins 0.6, M-Krystian Not observed, PEP Note , Free [place] LC, Quant 17.7, Free Lambda LC, Quant 10.0, Free [place]/Lambda Ratio 1.77 H 04/08/22 13:20: PHA Creatinine [...] % (Auto) 54.1, Lymph % (Auto) 38.9, Cooper % (Auto) 5.8, Eos % (Auto) 0.7, Baso % (Auto) 0.5, Neut # (Auto) 4.6, Lymph # (Auto) 3.3, Cooper # (Auto) 0.5, Eos# (Auto) 0.1, Baso [...] <Electronically signed by RAMAKRISHNA Connolly> 04/13/22 1135 [facility] Work Phone: 1([phone]) 878-114504-25-2022 Hospital Discharge instructions Patient Education 03/08/2022 11:37:40 [...] 10/31/2006 Document Revised: 07/20/2019 Document Reviewed: 09/30/[address] [employer] Patient Education 2020 [employer]. 03/08/2022 11:37:40 Calorie Counting for Weight Loss [...] 10/31/2006 Document Revised: 07/20/2019 Document Reviewed: 09/30/[address] [employer] Patient Education 2020 [employer]. 03/08/2022 11:37:32 Kidney Stones, Aqlr-ic-Dnel Kidney Stones Kidney stones are rock-like masses [...] Follow these instructions at home: Medicines Take ujmk-ubn-otpomfy and prescription medicines only as told by [...] 04/18/2009 Document Revised: 03/18/2020 Document Reviewed: 03/18/[address] [employer] Patient Education 2020 [employer]. Follow Up Care 09/04/2021 09:56:37 With:XAVIER VELAZQUEZ, Tyree Rivers, URL Address: [facility] [address] , [place] [address]- [phone] When:01/08/2023 Comments:10 month carlene MARAVILLA [facility] 03-07-2022 Progress note Author Claire Choi [facility] January 18, 2022 9:58am Note Date/Time January 18, 2022 9:[address] [facility] at [address] [address] Hem/Onc Follow Up Note - OP Signed Patient: Hailee Trivedi MR#: [id number] : 1940 Acct:[id number] Age/Sex: 81 / F Type: REG RCR [...] prior to f/u. f/u with me or [facility] [employer]. - History of Present Illness Chief Complaint: [...] 6 mg and cyclophosphamide 300 mg IV ewlweq8308/15/2015, developed grade 2 anemia, fatigue and grade [...] for coordination of care (as documented) and gkpa-ye-ardc counseling of patient and/or family. [facility] - Medical History Medical History: Medical History [...] % (Auto) 59.4, Lymph % (Auto) 31.4, Cooper % (Auto) 7.2, Eos % (Auto) 0.9, Baso % (Auto) 1.1, Neut # (Auto) 5.4, Lymph # (Auto) 2.8, Cooper # (Auto) 0.7, Eos# (Auto) 0.1, Baso [...] by Claire Choi II, DO> 01/18/22 0958 [facility] Work Phone: [phone] Evaluation note* Encounter Date Diagnosis Assessment Notes [...] D-10 - C90.00) Followup with Dr. Bello Harriet Thryve Other 02-02-2022 Progress note Author Hunter Bello [facility] December 16, 2021 1:18pm Note Date/Time December 16, 2021 1 :17pm [facility] [place] [address] Hem/Onc Follow Up Note - OP Signed Patient: Hailee Trivedi MR#: [id number] : 1940 Acct:[id number] Age/Sex: 81 / F Type: REG RCR [...] 6 mg and cyclophosphamide 300 mg IV qrmmsp9908/15/2015, developed grade 2 anemia, fatigue and grade [...] will be to transfer her care to [facility] when [facility] is ready 2. VitB12 injections, monthly, [...] [-], Anxiety [-], Stressed [-] [facility] - Medical History Medical History: Medical History [...] therapy. We will transfer her care to [facility] when they are ready. o Continue Daratumumab [...] for coordination of care (as documented) and ugmh-xj-skdv counseling of patient and/or family. Dictated By: Hunter Bello MD DD/ 15 Signed By: <Electronically signed by MD Hunter Bello> 12/16/218 [facility] Work Phone: [phone]) [phone] Progress note Author Hunter Bello [facility] October 06, 2021 10:02am Note Date/Time October 06, 2021 9:58am [facility] [place] [address] Hem/Onc Follow Up Note - OP Signed Patient: Hailee Trivedi MR#: [id number] : 1940 Acct:[id number] Age/Sex: 81 / F Type: REG RCR [...] been trying to transfer her care to [facility] but they are not up [...] 6 mg and cyclophosphamide 300 mg IV thvrng3508/15/2015, developed grade 2 anemia, fatigue and grade [...] will be to transfer her care to [facility] when [facility] is ready 2. VitB12 injections, monthly, [...] [-], Anxiety [-], Stressed [-] [facility] - Medical History Medical History: Medical History [...] % (Auto) 57.1, Lymph % (Auto) 34.7, Cooper % (Auto) 6.1, Eos % (Auto) 0.8, Baso % (Auto) 1.3, Neut # (Auto) 5.1, Lymph # (Auto) 3.1, Cooper # (Auto) 0.5, Eos# (Auto) 0.1, Baso [...] therapy. We will transfer her care to [facility] when they are ready. o Continue Daratumumab [...] for coordination of care (as documented) and uaje-vs-njeu counseling of patient and/or family. Dictated By: Hunter Bello MD DD/ 0957 Signed By: <Electronically signed by MD Hunter Bello> 10/06/21 1002 [facility] Work Phone: [phone]) [phone] Evaluation note* Encounter Date Diagnosis Assessment Notes [...] D-10 - C90.00) Followup with Dr. Bello [facility] Other 10-26-2021 Progress note Author Hunter Bello [facility] September 08, 2021 11:19am Note Date/Time September 08, 2021 1 1:17am [facility] [place] [address] Hem/Onc Follow Up Note - OP Signed Patient: Hailee Trivedi MR#: [id number] : 1940 Acct:[id number] Age/Sex: 81 / F Type: REG RCR [...] and then transferring her care to the [facility]. She will be getting monthly [...] 6 mg and cyclophosphamide 300 mg IV isnnjp2508/15/2015, developed grade 2 anemia, fatigue and grade [...] will be to transfer her care to [facility]. 2. VitB12 injections, monthly, switched [...] [-], Anxiety [-], Stressed [-] [facility] - Medical History Medical History: Medical History [...] % (Auto) 59.8, Lymph % (Auto) 31.4, Cooper % (Auto) 7.0, Eos % (Auto) 1.2, Baso % (Auto) 0.6, Neut # (Auto) 5.4, Lymph # (Auto) 2.8, Cooper # (Auto) 0.6, Eos# (Auto) 0.1, Baso [...] therapy See me in 1 month in [place] for monthly daratumumab. (2) B12 deficiency anemia [...] for coordination of care (as documented) and twgd-jw-kcrp counseling of patient and/or family. Dictated By: Hunter Bello MD DD/ 1116 Signed By: <Electronically signed by MD Hunter Bello> 09/08/21 1119 [facility] Work Phone: [phone]) [phone] History of Present illness Narrative* Patient is [...] recurrence. She did have noninvasive assessment at [facility], which was negative. Couple of years ago. [...] of change in cardiac status or symptoms -[facility] [address] DO Work Phone: [phone] Progress note Author Mike Bradley [facility] June 16, 2021 9:35am Note Date/Time June 16, 2021 9:[address] [facility] [place] [address] Hem/Onc Follow Up Note - OP Signed Patient: Hailee Trivedi MR#: [id number] : 1940 Acct:[id number] Age/Sex: 81 / F Type: REG RCR [...] M-spike of 0.2 g/dL with an IgG [place] specificity. She hadn't had a previous SPEP [...] 6 mg and cyclophosphamide 300 mg IV ottgqu9108/15/2015, developed grade 2 anemia, fatigue and grade [...] [-], Anxiety [-], Stressed [-] [facility] - Medical History Medical History: Medical History [...] % (Auto) 34.5 % (.) 06/09/21 09:40 Cooper % (Auto) 5.6 % (.) 06/09/21 09:40 Eos % (Auto) 1.1 % (.) 06/09/21 09:40 Baso % (Auto) 0.6 % (.) 06/09/21 09:40 Neut # (Auto) 4.4 x10E3/uL (1.8-7.7) 06/09/21 09:40 Lymph # (Auto) 2.6 x10E3/uL (1.00-4.8) 06/09/21 09:40 Cooper # (Auto) 0.4 x10E3/uL (0.0-0.8) 06/09/21 09:40 [...] 09:40 Albumin/Globulin (PEP) 1.3 (0.7-1.7) 06/09/21 09:40 Phtby-2-Wyanjtnzo 0.2 g/dL (0.0-0.4) 06/09/21 09:40 Llmtl-8-Qsxneieih 0.9 g/dL (0.4-1.0) 06/09/21 09:40 Beta Globulins [...] Urine pH (5.0-9.0) 02/24/21 12:05 Ur Specific [place] 1.009 (1.001-1.030) 02/24/21 12:05 Urine Protein mg/dL [...] 125 mg/24 hr (30-150) 06/09/21 09:28 U Elenc-8-Gfkeuzot 4.3 % (.) 06/09/21 09:28 U Jrsko-1-Ergkuxma 16.0 % (.) 06/09/21 09:28 U Beta [...] Ab 0.9 AU/mL (0.0-1.1) 02/28/19 11:21 Free [place] LC, Quant 20.1 mg/L (3.3-19.4) H 06/09/21 09:40 Free Lambda LC, Quant 11.9 mg/L (5.7-26.3) 06/09/21 09:40 Free [place]/Lambda Ratio 1.69 (0.26-1.65) H 06/09/21 09:40 Assessment [...] for coordination of care (as documented) and lkqg-qu-mnwb counseling of patient and/or family. Dictated By: Mike Bradley MD DD/ 7 Signed By: <Electronically signed by Mike Bradley MD> 06/16/21 0935 [facility] Work Phone: 1([phone]) 331-112507-06-2021 Progress note Author Mike Bradley [facility] May 19, 2021 2:08pm Note Date/Time May 19, 2021 1:50p m [facility] at [address] [address] Hem/Onc Follow Up Note - OP Signed Patient: Hailee Trivedi MR#: [id number] : 1940 Acct:[id number] Age/Sex: 81 / F Type: REG RCR [...] 6 mg and cyclophosphamide 300 mg IV [id number]/15/2015, developed grade 2 anemia, fatigue and grade [...] [-], Anxiety [-], Stressed [-] [facility] - Medical History Medical History: Medical History [...] % (Auto) 34.2 % (.) 04/14/21 11:10 Cooper % (Auto) 5.7 % (.) 04/14/21 11:10 Eos % (Auto) 1.1 % (.) 04/14/21 11:10 Baso % (Auto) 0.6 % (.) 04/14/21 11:10 Neut # (Auto) 5.0 x10E3/uL (1.8-7.7) 04/14/21 11:10 Lymph # (Auto) 2.9 x10E3/uL (1.00-4.8) 04/14/21 11:10 Cooper # (Auto) 0.5 x10E3/uL (0.0-0.8) 04/14/21 11:10 [...] Urine pH (5.0-9.0) 02/24/21 12:05 Ur Specific [place] 1.009 (1.001-1.030) 02/24/21 12:05 Urine Protein mg/dL [...] Ab 0.9 AU/mL (0.0-1.1) 02/28/19 11:21 Free [place] LC, Quant 17.8 mg/L (3.3-19.4) 04/14/21 11:10 Free Lambda LC, Quant 9.2 mg/L (5.7-26.3) 04/14/21 11:10 Free [place]/Lambda Ratio 1.93 (0.26-1.65) H 04/14/21 11:10 Assessment [...] for coordination of care (as documented) and hxxa-kk-wvcc counseling of patient and/or family. Dictated By: Mike Bradley MD DD/ 1349 Signed By: <Electronically signed by Mike Bradley MD> 05/19/21 1402 [facility] Work Phone: [phone] Progress note Author Margarito Buenrostro [facility] March 24, 2021 12:36pm Note Date/Time March 24, 2021 12:[address] [facility] [place] [address] Hem/Onc Follow Up Note - OP Signed Patient: Hailee Trivedi MR#: [id number] : 1940 Acct:[id number] Age/Sex: 80 / F Type: REG RCR [...] 6 mg and cyclophosphamide 300 mg IV pjurqc3208/15/2015, developed grade 2 anemia, fatigue and grade [...] - Last 7 Days 03/17/21 13:30: Free [place] LC, Quant 28.8 H, Free Lambda LC, Quant 13.2, Free [place]/Lambda Ratio 2.18 H 03/17/21 13:30: Corrected WBC 6.1, Uncorrected WBC Count 6.1, RBC 3.56 L, Hgb 11.7 L, Hct 34.3, MCV 96.4, MCH 32.8, MCHC 34.0, RDW 13.7, Plt Count 227, MPV 10.2, Neut % (Auto) 40.5, Lymph % (Auto) 47.8, Cooper % (Auto) 10.6, Eos % (Auto) 0.6, Baso % (Auto) 0.5, Neut # (Auto) 2.5, Lymph # (Auto) 2.9, Cooper # (Auto) 0.6, Eos # (Auto) 0.0, [...] for coordination of care (as documented) and obyn-uj-gpiq counseling of patient and/or family. Dictated By: Margarito Buenrostro MD DD/ 123 Signed By: <Electronically signed by Margarito Buenrostro MD> 03/24/21 1236 [facility] Work Phone: [phone]) 474-468803-26-2021 Progress note Author Margarito Buenrostro [facility] February 06, 2021 10:35am Note Date/Time February 06, 2021 10: 32am [facility] [place] [address] Hem/Onc Follow Up Note - OP Signed Patient: Hailee Trivedi MR#: [id number] : 1940 Acct:[id number] Age/Sex: 80 / F Type: REG RCR [...] 6 mg and cyclophosphamide 300 mg IV [id number]/15/2015, developed grade 2 anemia, fatigue and grade [...] % (Auto) 64.7, Lymph % (Auto) 27.2, Cooper % (Auto) 6.2, Eos % (Auto) 1.5, Baso % (Auto) 0.4, Neut # (Auto) 4.7, Lymph # (Auto) 2.0, Cooper # (Auto) 0.5, Eos# (Auto) 0.1, Baso [...] for coordination of care (as documented) and orre-uw-ihgf counseling of patient and/or family. Dictated By: Margarito Buenrostro MD DD/ 1031 Signed By: <Electronically signed by Margarito Buenrostro MD> 02/06/21 1035 [facility] Work Phone: [phone] Progress note Author Margarito Buenrostro [facility] January 08, 2021 10:17am Note Date/Time January 08, 2021 10:14am [facility] [place] [address] Hem/Onc Follow Up Note - OP Signed Patient: Hailee Trivedi MR#: [id number] : 1940 Acct:[id number] Age/Sex: 80 / F Type: REG RCR [...] 6 mg and cyclophosphamide 300 mg IV trxqed0208/15/2015, developed grade 2 anemia, fatigue and grade [...] plan to see in 4 weeks, repeat [place]/lambda ratio in6-8 weeks. -Continue Acyclovir 400mg bid [...] for coordination of care (as documented) and xcyl-dm-yzzm counseling of patient and/or family. Dictated By: Margarito Buenrostro MD DD/ 1013 Signed By: <Electronically signed by Margarito Buenrostro MD> 01/08/21 1017 [facility] Work Phone: [phone] Progress note Author Margarito Buenrostro [facility] December 02, 2020 12:29pm Note Date/Time December 02, 2020 1 2:27pm [facility] [place] [address] Hem/Onc Follow Up Note - OP Signed Patient: Hailee Trivedi MR#: [id number] : 1940 Acct:[id number] Age/Sex: 80 / F Type: REG RCR [...] 6 mg and cyclophosphamide 300 mg IV [id number]/15/2015, developed grade 2 anemia, fatigue and grade [...] plan to start in 4 weeks, repeat [place]/lambda ratio in 6weeks. -Continue Acyclovir 400mg bid [...] for coordination of care (as documented) and bshc-is-kndz counseling of patient and/or family. Dictated By: Margarito Buenrostro MD DD/ 1226 Signed By: <Electronically signed by Margarito Buenrostro MD> 12/02/20 9120 [facility] Work Phone: [phone] Progress note Author Margarito Buernostro [facility] November 04, 2020 1:30pm Note Date/Time November 04, 2020 1:22pm [facility] at [address] [address] Hem/Onc Follow Up Note - OP Signed Patient: Hailee Trivedi MR#: [id number] : 1940 Acct:[id number] Age/Sex: 80 / F Type: REG RCR [...] 6 mg and cyclophosphamide 300 mg IV wpjnuu0108/15/2015, developed grade 2 anemia, fatigue and grade [...] (Last Reviewed 04/16/20 @ 09:36 by Carol oYunger APRN) Afib CKD (chronic kidney disease) CVA [...] - Last 7 Days 10/28/20 11:11: Free [place] LC, Quant , Free Lambda LC, Quant , Free [place]/LambdaRatio Order [place] Free K+L Assessment and Plan (1) Multiple [...] to treatment, see in 4 weeks. Her [place]/lambda ratio was not drawn, will draw today. [...] for coordination of care (as documented) and equt-ja-yfos counseling of patient and/or family. Dictated By: Margarito Buenrostro MD DD/ 1317 Signed By: <Electronically signed by Margarito Buenrostro MD> 11/04/20 1330 [facility] Work Phone: [phone] Progress note Author Margarito Buenrostro [facility] October 07, 2020 10:20am Note Date/Time October 07, 2020 10:18am [facility] [place] [address] Hem/Onc Follow Up Note - OP Signed Patient: Hailee Trivedi MR#: [id number] : 1940 Acct:[id number] Age/Sex: 80 / F Type: REG RCR [...] 6 mg and cyclophosphamide 300 mg IV eexxwt8608/15/2015, developed grade 2 anemia, fatigue and grade [...] see in 4 weeks. Plan to repeat [place]/lambda ratio in 3 weeks. -Continue Acyclovir 400mg [...] was for coordination of care(as documented) and xjin-ce-qwrn counseling of patient and/or family. Dictated By: Margarito Buenrostro MD DD/ 1017 Signed By: <Electronically signed by Margarito Buenrostro MD> 10/07/20 1020 [facility] Work Phone: [phone] Progress note Author Margarito Buenrostro [facility] September 09, 2020 10:20am Note Date/Time September 09, 2020 1 0:18am [facility] [place] [address] Hem/Onc Follow Up Note - OP Signed Patient: Hailee Trivedi MR#: [id number] : 1940 Acct:[id number] Age/Sex: 80 / F Type: REG RCR [...] 6 mg and cyclophosphamide 300 mg IV [id number]/15/2015, developed grade 2 anemia, fatigue and grade [...] - Last 7 Days 09/01/20 10:35: Free [place] LC, Quant 19.8 H, Free Lambda LC, Quant 11.2, Free [place]/Lambda Ratio 1.77 H Assessment and Plan (1) [...] see in 4 weeks. Plan to repeat [place]/lambda ratio in 7 weeks. -Continue Acyclovir 400mg [...] was for coordination of care(as documented) and mvwg-ln-twik counseling of patient and/or family. Dictated By: Margarito Buenrostro MD DD/ 1017 Signed By: <Electronically signed by Margarito Buenrostro MD> 09/09/20 1020 [facility] Work Phone: [phone] Progress note Author Margarito Buenrostro [facility] August 12, 2020 11:28am Note Date/Time August 12, 2020 11:25am [facility] [place] [address] Hem/Onc Follow Up Note - OP Signed Patient: Hailee Trivedi MR#: [id number] : 1940 Acct:[id number] Age/Sex: 80 / F Type: REG RCR [...] 6 mg and cyclophosphamide 300 mg IV barxhg8108/15/2015, developed grade 2 anemia, fatigue and grade [...] see in 4 weeks. Plan to repeat [place]/lambda ratio in 3 weeks. -Continue Acyclovir 400mg [...] was for coordination of care(as documented) and qqbz-tv-muhx counseling of patient and/or family. Dictated By: Margarito Buenrostro MD DD/ Signed By: <Electronically signed by Margarito Buenrostro MD> 08/12/20 1128 [facility] Work Phone: [phone] Progress note Author Margarito Buenrostro [facility] July 15, 2020 10:42am Note Date/Time July 15, 2020 10:40am [facility] [place] [address] Hem/Onc Follow Up Note - OP Signed Patient: Hailee Trivedi MR#: [id number] : 1940 Acct:[id number] Age/Sex: 80 / F Type: REG RCR [...] 6 mg and cyclophosphamide 300 mg IV qhyiaf4008/15/2015, developed grade 2 anemia, fatigue and grade [...] - Last 7 Days 07/07/20 11:10: Free [place] LC, Quant 18.5, Free Lambda LC, Quant 11.7, Free [place]/Lambda Ratio 1.58 Assessment and Plan (1) Multiple [...] see in 4 weeks. Plan to repeat [place]/lambda ratio in 8 weeks. -Continue Acyclovir 400mg [...] for coordination of care (as documented) and ixad-bf-tpfe counseling of patient and/or family. Dictated By: Margarito Buenrostro MD DD/ 1039 Signed By: <Electronically signed by Margarito Buenrostro MD> 07/15/20 1042 [facility] Work Phone: [phone] Progress note Author Margarito Buenrostro [facility] June 17, 2020 10:25am Note Date/Time June 17, 2020 10: 22am [facility] at [address] [address] Hem/Onc Follow Up Note - OP Signed Patient: Hailee Trivedi MR#: [id number] : 1940 Acct:[id number] Age/Sex: 80 / F Type: REG RCR [...] 6 mg and cyclophosphamide 300 mg IV ehsyku5808/15/2015, developed grade 2 anemia, fatigue and grade [...] see in 4 weeks. Plan to repeat [place]/lambda ratio in 4 weeks. -Continue Acyclovir 400mg [...] was for coordination of care(as documented) and vkph-fj-rkgt counseling of patient and/or family. Dictated By: Margarito Buenrostro MD DD/ 1022 Signed By: <Electronically signed by Margarito Buenrostro MD> 06/17/20 1025 [facility] Work Phone: [phone] Progress note Author Margarito Buenrostro [facility] May 20, 2020 10:10am Note Date/Time May 20, 2020 10:[address] [facility] at [address] [address] Hem/Onc Follow Up Note - OP Signed Patient: Hailee Trivedi MR#: [id number] : 1940 Acct:[id number] Age/Sex: 80 / F Type: REG RCR [...] 6 mg and cyclophosphamide 300 mg IV kzlccw1108/15/2015, developed grade 2 anemia, fatigue and grade [...] - Last 7 Days 05/13/20 10:09: Free [place] LC, Quant 18.5, Free Lambda LC, Quant 9.6, Free [place]/Lambda Ratio 1.93 H 05/13/20 10:09: PHA Creatinine Clear 20.0172715251, Sodium 138, Potassium 4.6, Chloride 112, Carbon [...] Neut % (Auto) 59.3,Lymph % (Auto) 31.6, Cooper % (Auto) 7.5, Eos % (Auto) 1.1, Baso % (Auto) 0.5, Neut # (Auto) 4.6, Lymph # (Auto) 2.4, Cooper # (Auto) 0.6, Eos # (Auto) 0.1, [...] see in 4 weeks. Plan to repeat [place]/lambda ratio in 8 weeks. We will update [...] for coordination of care (as documented) and llnq-py-zdiv counseling of patient and/or family. Dictated By: Margarito Buenrostro MD DD/ 0958 Signed By: <Electronically signed by Margarito Buenrostro MD> 05/20/20 1010 [facility] Work Phone: [phone] Progress note Author Carol Younger [facility] April 16, 2020 10:49am Note Date/Time April 16, 2020 9:10a m [facility] at [address] [address] Hem/Onc Follow Up Note - OP Signed Patient: Hailee Trivedi MR#: [id number] : 1940 Acct:[id number] Age/Sex: 79 / F Type: REG RCR [...] 6 mg and cyclophosphamide 300 mg IV yrutoy9008/15/2015, developed grade 2 anemia, fatigue and grade [...] - Last 7 Days 04/09/20 09:35: Free [place] LC, Quant 16.6, Free Lambda LC, Quant 9.8, Free [place]/Lambda Ratio 1.69 H 04/09/20 09:35: PHA Creatinine Clear 19.3327752945, Sodium 138, Potassium 4.6, Chloride 111, Carbon [...] Neut % (Auto) 62.6,Lymph % (Auto) 29.5, Cooper % (Auto) 5.8, Eos % (Auto) 1.5, Baso % (Auto) 0.6, Neut # (Auto) 4.2, Lymph # (Auto) 2.0, Cooper # (Auto) 0.4, Eos # (Auto) 0.1, [...] The patient is also followed by nephrology -[place]/lambda ratio mild improvement 1.69 -Continue Acyclovir 400mg [...] for coordination of care (as documented) and ihpl-fo-yzwg counseling of patient and/or family. Dictated By: Carol Younger APRN DD/ 0909 Signed By: <Electronically signed by RAMAKRISHNA Younger> 04/16/20 1049 [facility] Work Phone: [phone] Progress note Author Margarito Buenrostro [facility] March 19, 2020 8:55am Note Date/Time March 19, 2020 8:37[facility] at [place] [address] Hem/Onc Follow Up Note - OP Signed Patient: Hailee Trivedi MR#: [id number] : 1940 Acct:[id number] Age/Sex: 79 / F Type: REG RCR [...] 6 mg and cyclophosphamide 300 mg IV bdbfhj5908/15/2015, developed grade 2 anemia, fatigue and grade [...] for coordination of care (as documented) and zqwr-yn-kbbq counseling of patient and/or family. Dictated By: Margarito Buenrostro MD DD/ Signed By: <Electronically signed by Margarito Buenrostro MD> 03/19/20 0855 [facility] Work Phone: [phone] Progress note Author Margarito Buenrostro [facility] January 09, 2020 9:15am Note Date/Time January 09, 2020 9:12am [facility] at [address] [address] Hem/Onc Follow Up Note - OP Signed Patient: Hailee Trivedi MR#: [id number] : 1940 Acct:[id number] Age/Sex: 79 / F Type: REG RCR [...] 6 mg and cyclophosphamide 300 mg IV itvsck4408/15/2015, developed grade 2 anemia, fatigue and grade [...] Neut % (Auto) 64.3,Lymph % (Auto) 25.2, Cooper % (Auto) 7.0, Eos % (Auto) 3.0, Baso % (Auto) 0.5, Neut # (Auto) 4.3, Lymph # (Auto) 1.7, Cooper # (Auto) 0.5, Eos # (Auto) 0.2, Baso# (Auto) 0.0, Nucleated RBC % (auto) 0.0 01/03/20 09:10: Free [place] LC, Quant 17.3, Free Lambda LC, Quant 10.2, Free [place]/Lambda Ratio 1.70 H Assessment and Plan (1) [...] and sustained response. -Labs adequate to treat, Car[place] light chain level slightly trend upwards, but still stable, will proceed to Daratumumab today, will see her back in 6 weeks, plan to repeat K/L light chains in 5 weeks ahead of time, if [place] light chain continue to go up, plan [...] for coordination of care (as documented) and vajd-hk-hvza counseling of patient and/or family. Dictated By: Margarito Buenrostro MD DD/ 0 Signed By: <Electronically signed by Margarito Buenrostro MD> 01/09/20914 [facility] Work Phone: [phone] Progress note Author Margarito Buenrostro [facility] November 28, 2019 10:50am Note Date/Time November 28, 2019 9 :43am [facility] [place] [address] Hem/Onc Follow Up Note - OP Signed Patient: Hailee Trivedi MR#: [id number] : 1940 Acct:[id number] Age/Sex: 79 / F Type: REG RCR [...] 6 mg and cyclophosphamide 300 mg IV mkpbuy4708/15/2015, developed grade 2 anemia, fatigue and grade [...] - Last 7 Days 11/20/19 14:30: Free [place] LC, Quant 14.5, Free Lambda LC, Quant 7.7, Free [place]/Lambda Ratio 1.88 H Assessment and Plan (1) [...] and sustained response. -Labs adequate to treat, [place] light chain level slightly trend upwards, will proceed to Daratumumab today, will see her back in 6 weeks, plan to repeat K/L light chains in 5 weeks ahead of time, if [place] light chain continue to go up, plan [...] for coordination of care (as documented) and gvpv-xr-iqnc counseling of patient and/or family. Dictated By: Margarito Buenrostro MD DD/ 0943 Signed By: <Electronically signed by Margarito Buenrostro MD> 11/28/19 1050 [facility] Work Phone: [phone] Progress note Author Margarito Buenrostro [facility] October 17, 2019 9:37am Note Date/Time October 17, 2019 9 :30am [facility] [place] [address] Hem/Onc Follow Up Note - OP Signed Patient: Hailee Trivedi MR#: [id number] : 1940 Acct:[id number] Age/Sex: 79 / F Type: REG RCR Copies to: Curt Clark MD~ Subjective Date/Time of Service: Date of Service: 10/17/2019 Time of Service: 09:26 Chief Complaint: Follow up appt prior to treatment doing well HPI: Hailee presents for routine follow up; prior to Daratumumab. Patient reports left leg sudden onset weakness last Tuesday while she was drawing labs at [facility]. She elected to not stay. This has [...] 6 mg and cyclophosphamide 300 mg IV cxxjxb6408/15/2015, developed grade 2 anemia, fatigue and grade [...] for coordination of care (as documented) and dxhi-vw-tcmp counseling of patient and/or family. Dictated By: Margarito Buenrostro MD DD/ 5 Signed By: <Electronically signed by Margarito Buenrostro MD> 10/17/1937 [facility] Work Phone: [phone] Progress note Author Margarito Buenrostro [facility] July 25, 2019 8:31am Note Date/Time July 25, 2019 8:30am [facility] [place] [address] Hem/Onc Follow Up Note - OP Signed Patient: Hailee Trivedi MR#: [id number] : 1940 Acct:[id number] Age/Sex: 79 / F Type: REG RCR [...] 6 mg and cyclophosphamide 300 mg IV vpkajo4908/15/2015, developed grade 2 anemia, fatigue and grade [...] - Last 7 Days 07/18/19 08:54: Free [place] LC, Quant 16.4, Free Lambda LC, Quant 10.9, Free [place]/Lambda Ratio 1.50 07/18/19 08:54: PHA Creatinine Clear 23.5679362761, Sodium 139, Potassium 4.6, Chloride 110, Carbon [...] % (Auto) 64.4, Lymph % (Auto) 27.6, Cooper % (Auto) 6.8, Eos % (Auto) 0.7, Baso % (Auto) 0.5, Neut # (Auto) 4.2, Lymph # (Auto) 1.8, Cooper # (Auto) 0.4, Eos # (Auto) 0.0,Baso [...] for coordination of care (as documented) and erkl-to-ungx counseling of patient and/or family. Dictated By: Margarito Buenrostro MD DD/ 9 Signed By: <Electronically signed by Margarito Buenrostro MD> 07/25/19830 [facility] Work Phone: [phone] Progress note Author Margarito Buenrostro [facility] June 13, 2019 8:37am Note Date/Time June 13, 2019 8:[address] [facility] [place] [address] Hem/Onc Follow Up Note - OP Signed Patient: Hailee Trivedi MR#: [id number] : 1940 Acct:[id number] Age/Sex: 79 / F Type: REG RCR Copies to: Curt Clark MD~ Subjective Date/Time of Service: Date of Service: 06/13/2019 Time of Service: 08:34 Chief Complaint: Follow up appt prior to treatment - Diagnosis DIAGNOSIS: DIAGNOSIS: 1. 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 [...] CVA 2018. SOCIAL HISTORY: Lives with in [place]. HPI: Hailee presents for routine follow up; [...] 6 mg and cyclophosphamide 300 mg IV emudfc6608/15/2015, developed grade 2 anemia, fatigue and grade [...] for coordination of care (as documented) and muyd-vs-utxh counseling of patient and/or family. Dictated By: Margarito Buenrostro MD DD/ 3 Signed By: <Electronically signed by Margarito Buenrostro MD> [birth year]1937 [facility] Work Phone: [phone] Progress note Author Margarito Buenrostro [facility] May 02, 2019 8:38am Note Date/Time May 02, 2019 8:[address] [facility] [place] [address] Hem/Onc Follow Up Note - OP Signed Patient: Hailee Trivedi MR#: [id number] : 1940 Acct:[id number] Age/Sex: 78 / F Type: REG RCR Copies to: Curt Clark MD~ Subjective Date/Time of Service: Date of Service: 05/02/2019 Time of Service: 08:32 Chief Complaint: Follow up appt prior to treatment no new concerns - Diagnosis DIAGNOSIS: DIAGNOSIS: 1. 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 [...] CVA 2018. SOCIAL HISTORY: Lives with in [place]. HPI: Hailee presents for routine follow up; [...] 6 mg and cyclophosphamide 300 mg IV hhjcde9608/15/2015, developed grade 2 anemia, fatigue and grade [...] - Last 7 Days 04/25/19 11:05: Free [place] LC, Quant 16.9, Free Lambda LC, Quant 10.8, Free [place]/Lambda Ratio 1.56 04/25/19 11:05: WBC 6.5, Corrected WBC 6.5, RBC 3.81, Hgb 12.2, Hct 36.4, MCV 95.7, MCH 32.1, MCHC 33.6, RDW 13.7, Plt Count 182, MPV 9.9, Neut % (Auto) 65.0,Lymph % (Auto) 26.9, Cooper % (Auto) 7.0, Eos % (Auto) 0.6, Baso % (Auto) 0.5, Neut # (Auto) 4.2, Lymph # (Auto) 1.8, Cooper # (Auto) 0.5, Eos # (Auto) 0.0, [...] for coordination of care (as documented) and oejy-fh-ueah counseling of patient and/or family. Dictated By: Margarito Buenrostro MD DD/ 1 Signed By: <Electronically signed by Margarito Buenrostro MD> 05/02/1936 [facility] Work Phone: [phone] Progress note Author Margarito Buenrostro [facility] March 07, 2019 10:22am Note Date/Time March 07, 2019 10: 19am [facility] at [address] [address] Hem/Onc Follow Up Note - OP Signed Patient: Hailee Trivedi MR#: [id number] : 1940 Acct:[id number] Age/Sex: 78 / F Type: REG RCR Copies to: Curt Clark MD~ Subjective Date/Time of Service: Date of Service: 03/07/2019 Time of Service: 08:16 Chief Complaint: Follow up appt prior to treatment - Diagnosis DIAGNOSIS: DIAGNOSIS: 1. 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 [...] CVA 2018. SOCIAL HISTORY: Lives with in [place]. HPI: Hailee presents for routine follow up; [...] 6 mg and cyclophosphamide 300 mg IV prrwyq94/12/2014, developed grade 2 anemia, fatigue and grade [...] Joseph Block M.D.01/02/2019 10:11 AM Dictation Location: [facility] Any impression(s) listed above is documentation [...] for coordination of care (as documented) and sqyy-kf-vjhn counseling of patient and/or family. Dictated By: Margarito Buenrostro MD DD/ 1016 Signed By: <Electronically signed by Margarito Buenrostro MD> 03/07/19 9281 [facility] Work Phone: [phone] Progress note Author Margarito Buenrostro [facility] January 10, 2019 8:49am Note Date/Time January 10, 2019 8:43am [facility] [place] [address] Hem/Onc Follow Up Note - OP Signed Patient: Hailee Trivedi MR#: [id number] : 1940 Acct:[id number] Age/Sex: 78 / F Type: REG RCR Copies to: Curt Clark MD~ Subjective Date/Time of Service: Date of Service: 01/10/2019 Time of Service: 08:42 Chief Complaint: Follow up appt prior to treatment has had leg weakness - Diagnosis DIAGNOSIS: DIAGNOSIS: 1. 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 [...] CVA 2018. SOCIAL HISTORY: Lives with in [place]. HPI: Hailee presents for routine follow up; prior to Cycle 19 Daratumumab. Patient had sudden onset weakness during blood draw for her labs last week, she was evaluated by ER, CT head at that point did not evidence of bleeding. 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 Her legs are little weak,otherwise she has [...] 6 mg and cyclophosphamide 300 mg IV hcndpk5708/15/2015, developed grade 2 anemia, fatigue and grade [...] - Last 7 Days 01/02/19 09:35: Free [place] LC, Quant 14.9, Free Lambda LC, Quant 8.9, Free [place]/Lambda Ratio 1.67 H - Impressions ITS Impressions [...] Joseph Block M.D.01/02/2019 10:11 AM Dictation Location: [facility] Any impression(s) listed above is documentation [...] for coordination of care (as documented) and peej-nn-whci counseling of patient and/or family. Dictated By: Margarito Buenrostro MD DD/ Signed By: <Electronically signed by Margarito Buenrostro MD> [birth year]1949 [facility] Work Phone: [phone] Progress note Author Anna Marie Mcnamara [facility] January 02, 2019 4:51pm Note Date/Time January 02, 2019 4:51pm [facility] [address] [place] [address] Event Note Signed Patient: Hailee Trivedi MR#: [id number] : 1940 Acct:[id number] Age/Sex: 78 / F Adm Date: 9 Loc: XT Room: Type: [facility] Attending Dr: Margarito Buenrostro MD Copies [...] Documented By: Anna Marie Mcnamara MD 01/02/19 1649 Signed By: <Electronically signed by Anna Marie Mcnamara MD> 01/02/19 1651 [facility] Work Phone: [phone] Progress note Author Margarito Buenrostro [facility] November 15, 2018 8:49am Note Date/Time November 15, 2018 8: 45am [facility] [place] [address] Hem/Onc Follow Up Note - OP Signed Patient: Hailee Trivedi MR#: [id number] : 1940 Acct:[id number] Age/Sex: 78 / F Type: REG RCR Copies to: Curt Clark MD~ Subjective Date/Time of Service: Date of Service: 11/15/2018 Time of Service: 08:43 Chief Complaint: Follow up appt myloma no new concerns - Diagnosis DIAGNOSIS: DIAGNOSIS: 1. 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 [...] CVA 2018. SOCIAL HISTORY: Lives with in [place]. HPI: Hailee presents for routine follow up; [...] 6 mg and cyclophosphamide 300 mg IV kdgfqi9908/15/2015, developed grade 2 anemia, fatigue and grade [...] for coordination of care (as documented) and pjmh-ub-etoz counseling of patient and/or family. Dictated By: Margarito Buenrostro MD DD/ 0843 Signed By: <Electronically signed by Margarito Buenrostro MD> 11/15/18 0849 [facility] Work Phone: [phone] Progress note Author Lisa Devine [facility] October 18, 2018 9:34am Note Date/Time October 18, 2018 9 :30am [facility] at [address] [address] Hem/Onc Follow Up Note - OP Signed Patient: Hailee Trivedi MR#: [id number] : 1940 Acct:[id number] Age/Sex: 78 / F Type: REG RCR Copies to: Curt Clark MD~ Subjective Date/Time of Service: Date of Service: 10/18/2018 Time of Service: 09:27 Chief Complaint: Patient here for one month follow up appointment for Multiple myeloma to be seen before C16 Daratumumab. - Diagnosis DIAGNOSIS: DIAGNOSIS: 1. 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 [...] DM-II, CKD-3. SOCIAL HISTORY: Lives with in [place]. HPI: Hailee presents for routine follow up; [...] 6 mg and cyclophosphamide 300 mg IV icfazc6808/15/2015, developed grade 2 anemia, fatigue and grade [...] HAILEE IgA 65, HAILEE IgM 38, Free [place] LC, Quant 15.8, Free Lambda LC, Quant 9.7, Free [place]/Lambda Ratio 1.63 10/13/18 09:10: PHA Creatinine Clear 24.2006499768, Sodium 137, Potassium 4.1, Chloride 107, Carbon [...] % (Auto) 64.5, Lymph % (Auto) 27.4, Cooper % (Auto) 6.8, Eos % (Auto) 0.8, Baso % (Auto) 0.5, Neut # (Auto) 4.2, Lymph # (Auto) 1.8, Cooper # (Auto) 0.4, Eos # (Auto) 0.1, [...] for coordination of care (as documented) and ucif-av-hdyx counseling of patient and/or family. Dictated By: Lisa Devine DD/ 0927 Signed By: <Electronically signed by Lisa Devine> 10/18/18 0934 [facility] Work Phone: [phone] Progress note Author Jacklyn Cornelius [facility] September 20, 2018 8:53am Note Date/Time September 20, 2018 8 :43am [facility] at [address] [address] Hem/Onc Follow Up Note - OP Signed Patient: Hailee Trivedi MR#: [id number] : 1940 Acct:[id number] Age/Sex: 78 / F Type: REG RCR Copies to: Curt Clark MD~ Subjective Date/Time of Service: Date of Service: 09/20/2018 Time of Service: 08:38 Chief Complaint: Multiple myeloma follow up appt day of treatment continues to have some dizziness - Diagnosis DIAGNOSIS: 1. 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 [...] DM-II, CKD-3. SOCIAL HISTORY: Lives with in [place]. HPI: Mrs. Bright is here today to [...] an MRI of the brain done at [place] under the direction of the neurologist. It [...] 6 mg and cyclophosphamide 300 mg IV eiznum8608/15/2015, developed grade 2 anemia, fatigue and grade [...] - Last 7 Days 09/13/18 11:15: Free [place] LC, Quant 15.3, Free Lambda LC, Quant 13.0, Free [place]/Lambda Ratio 1.18 09/13/18 11:15: PHA Creatinine Clear 21.9122929607, Sodium 140, Potassium 4.6, Chloride 109, Carbon [...] % (Auto) 58.9, Lymph % (Auto) 30.7, Cooper % (Auto) 8.9, Eos % (Auto) 1.2, Baso % (Auto) 0.3, Neut # (Auto) 3.5, Lymph # (Auto) 1.8, Cooper # (Auto) 0.5, Eos # (Auto) 0.1, [...] for coordination of care (as documented) and wkiq-dz-lsyx counseling of patient and/or family. 25 - 35 minutes Dictated By: Jacklyn Corenlius MD DD/ 0838 Signed By: <Electronically signed by Jacklyn Cornelius MD> 09/20/18 0853 [facility] Work Phone: [phone] Progress note Author Margarito Buenrostro [facility] August 09, 2018 9:41am Note Date/Time August 09, 2018 9:29am [facility] [place] [address] Hem/Onc Follow Up Note - OP Signed Patient: Hailee Trivedi MR#: [id number] : 1940 Acct:[id number] Age/Sex: 78 / F Type: REG RCR Copies to: Curt Clark MD~ Subjective Date/Time of Service: Date of Service: 08/09/2018 Time of Service: 09:28 Chief Complaint: Follow up appt on treatment multiple myeloma has infected toothbeing treated - Diagnosis DIAGNOSIS: 1. 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 [...] DM-II, CKD-3. SOCIAL HISTORY: Lives with in [place]. HPI: Mrs. Trivedi is seen as scheduled. [...] 6 mg and cyclophosphamide 300 mg IV lclwys4408/15/2015, developed grade 2 anemia, fatigue and grade [...] her MRI report (to be done in [place]). See in 5 weeks by SHAHID Bell, [...] for coordination of care (as documented) and oyqr-rn-aqer counseling of patient and/or family. 25 - 35 minutes Dictated By: Margarito Buenrostro MD DD/ 6 Signed By: <Electronically signed by Margarito Buenrostro MD> 08/09/18940 [facility] Work Phone: [phone]) [phone] Progress note Author Margarito Buenrostro [facility] July 12, 2018 9:09am Note Date/Time July 12, 2018 8: 33am [facility] [place] [address] Hem/Onc Follow Up Note - OP Signed Patient: Hailee Trivedi MR#: [id number] : 1940 Acct:[id number] Age/Sex: 78 / F Type: REG RCR Copies to: Curt Clark MD~ Subjective Date/Time of Service: Date of Service: 07/12/2018 Time of Service: 08:33 Chief Complaint: Follow up appt treatment today - Diagnosis DIAGNOSIS: 1. 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 [...] DM-II, CKD-3. SOCIAL HISTORY: Lives with in [place]. HPI: Mrs. Trivedi is seen as scheduled. [...] 6 mg and cyclophosphamide 300 mg IV oajsfw8408/15/2015, developed grade 2 anemia, fatigue and grade [...] potassium 4.2, creatinine 2.55, calcium 8.7 Free [place] LC, Quant 14.0 mg/L (3.3-19.4) 06/28/18 10:45 Free Lambda LC, Quant 9.7 mg/L (5.7-26.3) 06/28/18 10:45 Free [place]/Lambda Ratio 1.44 (0.26-1.65) 06/28/18 10:45 Total Bilirubin [...] for coordination of care (as documented) and gpor-rg-stbw counseling of patient and/or family. 25 - 35 minutes Dictated By: Margarito Buenrostro MD DD/ 0833 Signed By: <Electronically signed by Margarito Buenrostro MD> 07/12/18 0909 [facility] Work Phone: [phone] Progress note Author Margarito Buenrostro [facility] May 18, 2018 8:51am Note Date/Time May 18, 2018 8:44a m [facility] [place] [address] Hem/Onc Follow Up Note - OP Signed Patient: Hailee Trivedi MR#: [id number] : 1940 Acct:[id number] Age/Sex: 78 / F Type: REG RCR Copies to: Curt Clark MD~ Subjective Date/Time of Service: Date of Service: 05/18/2018 Time of Service: 08:42 Chief Complaint: weak today - Diagnosis DIAGNOSIS: 1. 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 [...] DM-II, CKD-3. SOCIAL HISTORY: Lives with in [place]. HPI: Mrs. Trivedi is seen as scheduled. [...] 6 mg and cyclophosphamide 300 mg IV qnfpbq9708/15/2015, developed grade 2 anemia, fatigue and grade [...] 7: 05/09/18 13:45 05/09/18 13:45 Labs: Free [place] LC, Quant 15.0 mg/L (3.3-19.4) 05/09/18 13:45 Free Lambda LC, Quant 10.8 mg/L (5.7-26.3) 05/09/18 13:45 Free [place]/Lambda Ratio 1.39 (0.26-1.65) 05/09/18 13:45 HbA1C 7.7 [...] for coordination of care (as documented) and lkli-do-datv counseling of patient and/or family. Greater than 35 minutes Dictated By: Margarito Buenrostro MD DD/ 0842 Signed By: <Electronically signed by Margarito Buenrostro MD> 05/18/18 0851 [facility] Work Phone: 1([phone]) 638-754506-06-2018 Progress note Author Margarito Buenrostro [facility] April 19, 2018 1:08pm Note Date/Time April 19, 2018 8:33a m [facility] [place] [address] Hem/Onc Follow Up Note - OP Signed Patient: Hailee Trivedi MR#: [id number] : 1940 Acct:[id number] Age/Sex: 77 / F Type: REG RCR Copies to: Curt Clark MD~ Subjective Date/Time of Service: Date of Service: 04/19/2018 Time of Service: 08:32 Chief Complaint: Follow up appt - Diagnosis DIAGNOSIS: 1. 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 [...] DM-II, CKD-3. SOCIAL HISTORY: Lives with in [place]. HPI: Mrs. Trivedi is seen as scheduled. [...] 6 mg and cyclophosphamide 300 mg IV wbqybn5508/15/2015, developed grade 2 anemia, fatigue and grade [...] for coordination of care (as documented) and cpzi-fz-kqwj counseling of patient and/or family. 25 - 35 minutes Dictated By: Margarito Buenrostro MD DD/ 0832 Signed By: <Electronically signed by Margarito Buenrostro MD> 04/19/18 0666 [facility] Work Phone: 1(227) 980-165805-02-2018 Progress note Author Margarito Buenrostro [facility] March 15, 2018 8:43am Note Date/Time March 15, 2018 8:38am [facility] at [address] [address] Hem/Onc Follow Up Note - OP Signed Patient: Hailee Trivedi MR#: [id number] : 1940 Acct:[id number] Age/Sex: 77 / F Type: REG RCR Copies to: Curt Clark MD, Patrick MD~ Subjective Date/Time of Service: Date of Service: 03/15/2018 Time of Service: 08:37 Chief Complaint: Follow up appt - Diagnosis DIAGNOSIS: 1. 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 [...] DM-II, CKD-3. SOCIAL HISTORY: Lives with in [place]. HPI: Mrs. Trivedi is seen as scheduled. She reports had lithotripsy, then she developed pain involving bilateral wrist, elbows, and shoulder, primarily in themuscle. She went to [place] [facility], took x-rays, no acute process was [...] 6 mg and cyclophosphamide 300 mg IV ammxrb7208/15/2015, developed grade 2 anemia, fatigue and grade [...] Albumin 3.8 gm/dL (3.2-5.5) 03/08/18 11:50 Free [place] LC, Quant 18.6 mg/L (3.3-19.4) 03/08/18 11:50 Free Lambda LC, Quant 12.5 mg/L (5.7-26.3) 03/08/18 11:50 Free [place]/Lambda Ratio 1.49 (0.26-1.65) 03/08/18 11:50 Assessment and [...] Daratumumab to next week, orders placed. Continue Qfagtadae937an bid for Herpes Zoster prophylaxis. See in [...] for coordination of care (as documented) and sclv-if-aupo counseling of patient and/or family. 25 - 35 minutes Dictated By: Margarito Buenrostro MD DD/ Signed By: <Electronically signed by Margarito Buenrostro MD> 03/15/18 0843 [facility] Work Phone: 1([phone] 398-582403-07-2018 Progress note Author Margarito Buenrostro [facility] January 18, 2018 10:51am Note Date/Time January 18, 2018 10:4 4am [facility] [place] [address] Hem/Onc Follow Up Note - OP Signed Patient: Hailee Trivedi MR#: [id number] : 1940 Acct:[id number] Age/Sex: 77 / F Type: REG RCR Copies to: Curt Clark MD~ Subjective Date/Time of Service: Date of Service: 01/18/2018 Time of Service: 10:42 Chief Complaint: Follow up appt - Diagnosis DIAGNOSIS: 1. 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 [...] DM-II, CKD-3. SOCIAL HISTORY: Lives with in [place]. HPI: Mrs. Trivedi is seen as scheduled. [...] 6 mg and cyclophosphamide 300 mg IV eiehci2508/15/2015, developed grade 2 anemia, fatigue and grade [...] 7: 01/10/18 10:13 01/10/18 10:13 Labs: Free [place] LC, Quant 14.2 mg/L (3.3-19.4) 01/10/18 10:13 Free Lambda LC, Quant 11.4 mg/L (5.7-26.3) 01/10/18 10:13 Free [place]/Lambda Ratio 1.25 (0.26-1.65) 01/10/18 10:13 Assessment and [...] for coordination of care (as documented) and dsez-gx-helc counseling of patient and/or family. 25 - 35 minutes Dictated By: Margarito Buenrostro MD DD/ 1042 Signed By: <Electronically signed by Margarito Buenrostro MD> 01/18/18 1051 [facility] Work Phone: [phone]) 802-435601-10-2018 Progress note Author Margarito Buenrostro [facility] November 23, 2017 10:25am Note Date/Time November 23, 2017 1 0:19am [facility] [place] [address] Hem/Onc Follow Up Note - OP Signed Patient: Hailee Trivedi MR#: [id number] : 1940 Acct:[id number] Age/Sex: 77 / F Type: REG RCR Copies to: Curt Clark MD~ Subjective Date/Time of Service: Date of Service: 11/23/2017 Time of Service: 10:18 Chief Complaint: Follow up appt - Diagnosis DIAGNOSIS: 1. 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 [...] 6 mg and cyclophosphamide 300 mg IV jotnju8808/15/2015, developed grade 2 anemia, fatigue and grade [...] 7: 11/16/17 08:35 11/16/17 08:35 Labs: Free [place] LC, Quant 17.9 mg/L (3.3-19.4) 11/16/17 08:35 Free Lambda LC, Quant 10.5 mg/L (5.7-26.3) 11/16/17 08:35 Free [place]/Lambda Ratio 1.70 (0.26-1.65) H 11/16/17 08:35 Assessment [...] for coordination of care (as documented) and tkbm-vc-cezm counseling of patient and/or family. 25 - 35 minutes Dictated By: Margarito Buenrostro MD DD/ 1018 Signed By: <Electronically signed by Margarito Buenrostro MD> 11/23/17 1025 [facility] Work Phone: [phone] 516-534512-06-2017 Progress note Author Margarito Buenrostro [facility] October 19, 2017 9:19am Note Date/Time October 19, 2017 8 :42am [facility] [place] [address] Hem/Onc Follow Up Note - OP Signed Patient: Hailee Trivedi MR#: [id number] : 1940 Acct:[id number] Age/Sex: 77 / F Type: REG RCR Copies to: Curt Clark MD, Jeffrey DO~ Subjective Date/Time of Service: Date of Service: 10/19/2017 Time of Service: 08:42 Chief Complaint: Follow up appt - Diagnosis DIAGNOSIS: 1. 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 [...] 6 mg and cyclophosphamide 300 mg IV gyviho4708/15/2015, developed grade 2 anemia, fatigue and grade [...] 7: 10/14/17 13:43 10/14/17 13:43 Labs: Free [place] LC, Quant 15.6 mg/L (3.3-19.4) 10/14/17 13:43 Free Lambda LC, Quant 9.4 mg/L (5.7-26.3) 10/14/17 13:43 Free [place]/Lambda Ratio 1.66 (0.26-1.65) H 10/14/17 13:43 Assessment [...] for coordination of care (as documented) and bewt-af-argt counseling of patient and/or family. less than 15 minutes Dictated By: Margarito Buenrostro MD DD/ Signed By: <Electronically signed by Margarito Buenrostro MD> 10/19/17 0919 [facility] Work Phone: [phone]) [phone] Progress note Author Margarito Buenrostro [facility] September 21, 2017 8:54am Note Date/Time September 21, 2017 8 :50am [facility] [place] [address] Hem/Onc Follow Up Note - OP Signed Patient: Hailee Trivedi MR#: [id number] : 1940 Acct:[id number] Age/Sex: 77 / F Type: REG RCR Copies to: Curt Clark MD, Jeffrey DO~ Subjective Date/Time of Service: Date of Service: 09/21/2017 Time of Service: 08:48 Chief Complaint: Follow up appt - Diagnosis DIAGNOSIS: 1. 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 [...] 6 mg and cyclophosphamide 300 mg IV mecyew6408/15/2015, developed grade 2 anemia, fatigue and grade [...] 7: 09/15/17 10:45 09/15/17 10:45 Labs: Free [place] LC, Quant 14.4 mg/L (3.3-19.4) 09/15/17 10:45 Free Lambda LC, Quant 9.3 mg/L (5.7-26.3) 09/15/17 10:45 Free [place]/Lambda Ratio 1.55 (0.26-1.65) 09/15/17 10:45 Assessment and [...] for coordination of care (as documented) and ackn-vh-igqd counseling of patient and/or family. 25 - 35 minutes Dictated By: Margarito Buenrostro MD DD/ Signed By: <Electronically signed by Margarito Buenrostro MD> 09/21/17 0854 [facility] Work Phone: [phone] 513-997809-13-2017 Progress note Author Margarito Buenrostro [facility] July 27, 2017 8:53am Note Date/Time July 27, 2017 8:46am [facility] [place] [address] Hem/Onc Follow Up Note - OP Signed Patient: Hailee Trivedi MR#: [id number] : 1940 Acct:[id number] Age/Sex: 77 / F Type: REG RCR cc: Curt Clark MD, Jeffrey DO Qadir, Abdul MD~ Subjective Date/Time of Service: Date of Service: 07/27/2017 Time of Service: 08:44 Chief Complaint: Follow up appt - Diagnosis DIAGNOSIS: 1. 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 [...] 6 mg and cyclophosphamide 300 mg IV scpeor5108/15/2015, developed grade 2 anemia, fatigue and grade [...] Chem 7: 07/21/17 08:50 07/21/17 08:50 Labs: [place] and lambda light chain levels low, and [...] for coordination of care (as documented) and ulai-zo-buob counseling of patient and/or family. 25 - 35 minutes Dictated By: Margarito Buenrostro MD DD/ 3 Signed By: <Electronically signed by Margarito Buenrostro MD> 07/27/1753 [facility] Work Phone: Evaluation + Plan note Future Appointments Appointment Date:01/10/2023 10:45:00 AM Scheduled Provider:Tyree PARK MD Location:[facility] Appointment Type:URO Office Visit [facility] evalzgshbr + Plan note Future Appointments Appointment Date:01/09/2024 08:45:00 AM Scheduled Provider:Tyree PARK MD Location:[facility] Appointment Type:URO Office Visit Diagnostic Tests Pending * Urine Cytology ([facility]) 01/10/23 [facility] evaluation noteNo [facility] [employer] Other Evaluation note* Diagnosis Onset Date Resolution [...] chronic Steroid-induced hyperglycemia chronic Unsteady gait resolved [facility] Work Phone: Evaluation note* Diagnosis Persistent atrial fibrillation with RVR (CMS/HCC)- Primary Aortic valve regurgitation, nonrheumatic Ascending aorta dilation (CMS/HCC) Thoracic aneurysm without mention of rupture Essential hypertension Unspecified essential hypertension Pulmonary hypertension (CMS/HCC) Other chronic pulmonary heart diseases Stage 3a chronic kidney disease (CMS/HCC) documented in this encounter [facility] Work Phone: Evaluation note* Diagnosis Aortic valve regurgitation, nonrheumatic Ascending aorta dilation (CMS/HCC) Thoracic aneurysm without mention of rupture Pulmonary hypertension (CMS/HCC) Other chronic pulmonary heart diseases documented in this encounter [facility] Work Phone: Evaluation note* Diagnosis Aortic valve regurgitation, nonrheumatic Ascending aorta dilation (CMS/HCC) Thoracic aneurysm without mention of rupture Pulmonary hypertension (CMS/HCC) Other chronic pulmonary heart diseases documented in this encounter [facility] Work Phone: Evaluation note* Diagnosis Onset [...] 4, GFR 15-29 ml/min acute Hyperlipidemia acute [id number] acute Metabolic acidemia acute Multiple myeloma acute Secondary hyperparathyroidism of renal origin acute 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 [facility] Work Phone: Evaluation note* Diagnosis Onset Date Resolution Status CKD (chronic kidney disease) stage 4, GFR 15-29 ml/min acute Hyperlipidemia acute [id number] acute Metabolic acidemia acute Multiple myeloma acute [...] myeloma in remission chronic Unsteady gait resolved [facility] Work Phone: Evaluation note* Diagnosis Onset Date Resolution Status Multiple myeloma acute Cerebellar stroke, acute acu te CKD (chronic kidney disease) stage 4, GFR 15-29 ml/min acute Diabetes mellitus type II, controlled acute Hyperlipidemia acute Atrial fibrillation chronic HTN (hypertension) chronic 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 Multiple myeloma in remission chronic Unsteady gait resolved UTI (urinary tract infection) acute [facility] Work Phone: Evaluation note* Diagnosis Essential [...] Never smoked tobacco documented in this encounter [facility] Work Phone: Evaluation note* Diagnosis Onset [...] myeloma in remission chronic Unsteady gait resolved [facility] Work Phone: Evaluation note* Diagnosis Onset [...] 15-29 ml/min acute Hyperkalemia acute Hyperlipidemia acute [id number] acute Metabolic acidemia acute Multiple myeloma acute Secondary hyperparathyroidism of renal origin acute 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 [facility] Work Phone: Evaluation note* Diagnosis Onset Date Resolution Status CKD (chronic kidney disease) stage 4, GFR 15-29 ml/min acute Depression acute HTN (hypertension) chronic Multiple myeloma in remission chronic CKD (chronic kidney disease) stage 4, GFR 15-29 ml/min acute Hyperkalemia acute Hyperlipidemia acute [id number] acute Metabolic acidemia acute Multiple myeloma acute [...] myeloma in remission chronic Unsteady gait resolved [facility] Work Phone: Evaluation note* Diagnosis Onset Date Resolution Status CKD (chronic kidney disease) stage 4, GFR 15-29 ml/min acute Hyperkalemia acute Hyperlipidemia acute [id number] acute Metabolic acidemia acute Multiple myeloma acute [...] acute Atrial fibrillation chronic HTN (hypertension) chronic [facility] Work Phone: Evaluation note* Diagnosis Onset Date Resolution Status CKD (chronic kidney disease) stage 4, GFR 15-29 ml/min acute Hyperkalemia acute Hyperlipidemia acute [id number] acute Metabolic acidemia acute Multiple myeloma acute [...] (hypertension) chronic Multiple myeloma in remission chronic [facility] Work Phone: History general Narrative - [...] History SEE ABOVE SURGERY Hospitalization History [facility]-DEHYDRATION/RASH [employer] Other History general Narrative - Reported* Type [...] Hospitalization History [facility] Hospitalization History COVID 10/2021 [employer] Other [place] general Narrative - Reported* Type Description Date [...] History SEE ABOVE SURGERY Hospitalization History [facility] Hospitalization History COVID 10/2021 [employer] Other History of Present illness Narrative* Patient [...] recurrence. She did have noninvasive assessment at [facility], which was negative. Couple of years ago. [...] of change in cardiac status or symptoms [facility] 250 DO Work Phone: History of Present [...] recurrence. She did have noninvasive assessment at [facility], which was negative. Couple of years ago. [...] of change in cardiac status or symptoms [facility] 250 DO Work Phone: Hospital course Narrative No data available for this section [facility] progress note No data available for this section [facility] progress note Author Misti Connolly [facility] January 11, 2023 11:19am Note Date/Time January 11, 2023 10:42am [facility] [place] [address] Hem/Onc Follow Up Note - OP Signed Patient: Hailee Trivedi MR#: [id number] : 1940 Acct:[id number] Age/Sex: 82 / F Type: REG RCR [...] neurologist. Head CT done March 2022 at [facility] without new/acute findings. 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 [...] been trying to transfer her care to [place] [facility] clinic but they are not up [...] x 1 week, sees neurology (followed at [facility]) who have ruled out stroke, [...] for coordination of care (as documented) and izgm-wz-mxgn counseling of patient and/or family. [facility] - Medical History Medical History: Medical History [...] 01/19/22 09:00 KB (Rec: 01/19/22 09:01 KB [id number]) Distress Screening Distress screening follow up: Will follow with patient for any needs at next visit. Anxious about making next appointment time. - Lab Results Diagram of Most Recent CBC and CMP 01/04/23 14:45 02/21/23 14:45 Labs - Last 7 Days 01/04/23 14:45: Free [place] LC, Quant 26.9 H, Free Lambda LC, Quant 12.0, Free [place]/Lambda Ratio 2.24 H 01/04/23 14:45: PHA Creatinine [...] % (Auto) 54.8, Lymph % (Auto) 34.1, Cooper % (Auto) 8.0, Eos % (Auto) 2.3, Baso % (Auto) 0.8, Nucleat RBC Rel Count 0.0, Neut # (Auto) 4.9, Lymph # (Auto) 3.0, Cooper # (Auto) 0.7, Eos # (Auto) 0.2, [...] By: <Electronically signed by RAMAKRISHNA Connolly> 01/11/23 2882 [facility] Work Phone: Progress note Author Misti Connolly [facility] January 31, 2024 1:03pm Note Date/Time January 27, 2024 2:5 6pm [facility] [place] [place] [address] Cancer Center Note Signed Patient: Hailee Trivedi MR#: [id number] : 1940 Acct:[id number] Age/Sex: 83 / F Type: DEP AMB [...] well. Within one month of starting irma kn1060 she had 95% reduction in K light [...] neurologist. Head CT done March 2022 at [facility] without new/acute findings. 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 [...] myeloma and go over labs [facility] Medical History Medical History (Updated 01/04/24 @ [...] <Electronically signed by RAMAKRISHNA Connolly> 01/31/24 1303 [facility] Work Phone: Reason for referral (narrative)* Consultation (Routine) - Authorized Specialty Diagnoses / Procedures Referred By Contac t Referred To Contact Cardiology Diagnoses Persistent atrial fibrillation with RVR (Multi) Procedures Follow Up In Cardiology Elicia Rhodes MD [address] [place] [address], [address] [address] Elicia Rhodes MD [address] [place] [address], [address] [address] Referral ID Status Reason Start Date Expiration Date V isits Requested Visits Authorized [id number] Authorized 04/17/2024 04/17/2025 1 1 [facility] Work Phone: Summary Purpose Family [...] disease) stage 4, GFR 15-29 ml/min Hyperlipidemia [id number] Metabolic acidemia Multiple myeloma 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 Reason for Visit CKD (chronic kidney disease) stage 4, GFR 15-29 ml/min Hyperlipidemia [id number] Metabolic acidemia Multiple myeloma Secondary hyperparathyroidism of [...] stage 4, GFR 15-29 ml/min Hyperkalemia Hyperlipidemia [id number] Metabolic acidemia Multiple myeloma 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 6 Month Follow Up Reason for Visit CKD (chronic kidney disease) stage 4, GFR 15-29 ml/min Depression HTN (hypertension) Multiple myeloma in remission CKD (chronic kidney disease) stage 4, GFR 15-29 ml/min Hyperkalemia Hyperlipidemia [id number] Metabolic acidemia Multiple myeloma Secondary hyperparathyroidism of [...] stage 4, GFR 15-29 ml/min Hyperkalemia Hyperlipidemia [id number] Metabolic acidemia Multiple myeloma Secondary hyperparathyroidism of [...] stage 4, GFR 15-29 ml/min Hyperkalemia Hyperlipidemia [id number] Metabolic acidemia Multiple myeloma Secondary hyperparathyroidism of [...] stage 4, GFR 15-29 ml/min Hyperkalemia Hyperlipidemia [id number] Metabolic acidemia Multiple myeloma Secondary hyperparathyroidism of [...] hypertension (CMS/HCC) Procedures Transthoracic Echo (TTE) Complete AK ECHO TRANSTHORC R-T 2D W/WO M-MODE REC F-UP/LMTD AK DOP ECHOCARD COLOR FLOW VELOCITY MAPPING AK DOP ECHOCARD PULSE WAVE W/SPECTRAL F-UP/LMTD STD Elicia Rhodes MD [address] [place] [address], [address] [address] Referral ID Status Reason Start Date Expiration Date Visits Requested Visits Authorized [id number] Pending Review Perform Procedure 10/03/2024 1 1 Specialty Diagnoses / Procedures Referred By Contac t Referred To Contact Diagnoses Persistent atrial fibrillation with RVR (CMS/HCC) Procedures ECG 12 Lead Elicia Rhodes MD [address] [facility] 2, [address] [place] [phone] Referral ID Status Reason Start Date Expiration Date V isits Requested Visits Authorized [id number] Pending Review 10/04/2023 10/03/2024 1 1 Specialty Diagnoses / Procedures Referred By Contac t Referred To Contact Cardiology Diagnoses Persistent atrial fibrillation with RVR (CMS/HCC) Aortic valve regurgitation, nonrheumatic Ascending aorta dilation (CMS/HCC) Procedures Follow Up In Cardiology Elicia Rhodes MD [address] [facility], [address] [place] [address] Elicia Rhodes MD [address] [facility] 2, [address] [place] [phone] Referral ID Status Reason Start Date Expiration Date V isits Requested Visits Authorized [id number] Authorized 10/04/2023 10/03/2024 1 1 Additional Source Comments INFORMATION SOURCE (unrecogn ized section and content) DATE CREATED AUTHOR 10/19/2019 [facility] DATE CREATED AUTHOR AUTHOR'S ORGANIZ ATION 03/24/2023 [facility] [place] [facility] DATE CREATED AUTHOR AUTHOR'S ORGANIZ ATION 03/26/2023 [facility] DATE CREATED AUTHOR AUTHOR'S ORGANIZ ATION 03/26/2023 [employer] DATE CREATED AUTHOR AUTHOR'S ORGANIZ ATION 01/14/2024 [facility] DATE CREATED AUTHOR AUTHOR'S ORGANIZ ATION 03/15/2024 [facility] EPIC DATE CREATED AUTHOR AUTHOR'S ORGANIZ ATION 07/12/2024 [facility] DATE CREATED AUTHOR AUTHOR'S ORGANIZ ATION 07/29/2024 [facility] DATE CREATED AUTHOR AUTHOR'S ORGANIZ ATION 10/08/2024 [facility] REASON FOR VISIT (unrecogniz ed section and content) Reason Comments Follow-up 6m with ekg Specialty Diagnoses / Procedures Referred By Contac t Referred To Contact Diagnoses Persistent atrial fibrillation with RVR (CMS/HCC) Procedures ECG 12 Lead Elicia Rhodes MD [address] [place] [address] 2, [place] [address] [place] [id number] Referral ID Status Reason Start Date Expiration Date V isits Requested Visits Authorized [id number] Pending Review 10/04/2023 10/03/2024 1 1 Specialty Diagnoses / Procedures Referred By Contac t Referred To Contact Cardiology Diagnoses Aortic valve regurgitation, nonrheumatic Ascending aorta dilation (CMS/HCC) Pulmonary hypertension (CMS/HCC) Procedures Transthoracic Echo (TTE) Complete AK ECHO TRANSTHORC R-T 2D W/WO M-MODE REC F-UP/LMTD AK DOP ECHOCARD COLOR FLOW VELOCITY MAPPING AK DOP ECHOCARD PULSE WAVE W/SPECTRAL F-UP/LMTD STD Elicia Rhodes MD [address] [facility] 2, [place] [address] [place] [id number] Referral ID Status Reason Start Date Expiration Date Visits Requested Visits Authorized [id number] Pending Review Perform Procedure 3 10/03/2024 1 1 Reason Comments Follow-up 6 months Specialty Diagnoses / Procedures Referred By Contac t Referred To Contact Cardiology Diagnoses Persistent atrial fibrillation with RVR (Multi) Aortic valve regurgitation, nonrheumatic Ascending aorta dilation (CMS-HCC) Procedures Follow Up In Cardiology Elicia Rhodes MD [address] [facility] 2, [address] [address] Elicia Rhodes MD [address] [place] [address] 2, Naeem [address] [place] [id number] Referral ID Status Reason Start Date Expiration Date V isits Requested Visits Authorized [id number] Authorized 10/04/2023 10/03/2024 1 1 Care Teams [...] Status Dates Curt Clrak MD Primary Care Provider Active Start: August [...] Claire Choi II, DO Attending Provider Active Cream Dumper Relationship Specialty Start Date End Date Curt Clark MD PCP - General 12/10/14 Cream Dumper Relationship Specialty Start Date End Date Curt Clark MD [address] [place] [address] [place] [address] PCP - General Family Medicine 10/22/23 Cream Dumper Relationship Specialty Start Date End Date Curt Clark MD [address] [place] [address] [place] [address] PCP - General Family Medicine 10/22/23 Team [...] April 12, 2024 End: April 12, 2024 Cream Dumper Relationship Specialty Start Date End Date Curt [...] August 20, 2024 End: August 20, 2024 Cream Dumper Relationship Specialty Start Date End Date Curt Clark MD [address] [place] [id number] [facility] 06/29/23 Team Status: Active [...] End: September 19, 2024 Kristan Pretty , NURSING HOME PHYSICIAN Other Provider Active St art: September 18, 2024 End: September 19, 2024 Wesley L Belcik Jr, DO Other Provider Active [...] September 18, 2024 Cristiano Diaz MD [facility]ending [facility] Other Provider Active Start: September 18, 2024 Sherron Li MD Other Provider Active Start: No 2023 Pj Montes MD Other Provider Active Start: N 2023 Kristan Pretty , NURSING HOME PHYSICIAN Other Provider Active St art: September 18, 2024 Wesley L Belcik Jr, DO Other Provider Active [...] BE BASED ON THE PRIMARY CLINICAL RECORDS. [employer] provides no warranty or guarantee of the accuracy or completeness of information in this document.
--- NOTE | 2024-10-12 08:03 | P.GSCN_ITS ---
History of Present Illness Consult details Consult date: 10/12/24 Reason for consult: other (Melena/anemia/hematemesis) Requesting physician: Shaikh Kim Narrative: 84-year-old female presented to the ED yesterday with complaints of hematemesis and melena and feeling weak. She was found to be slightly anemic. I was asked to consult for upper endoscopy. She takes aspirin as well as a NOAC due to atrial fibrillation. Her hemoglobin is down to 7.3 g this morning. She had a normal bowel movement according to nursing without melena. She is hard of hearing. She denies any family history of intestinal cancer. Her last colonoscopy EGD was over 10 years ago. She lives with her . She admits to slight of epigastric abdominal pain but denies any history of ulcers or gastritis. She has been on baby aspirin for 10 years. Review of Systems ROS Status of ROS 10 or more systems reviewed and unremark able except as noted in history and below [facility] Medical History (Updated 10/11/24 @ 12:17 by Shaikh Kim MD) HLD (hyperlipidemia) ?E78.5 - Hyperlipidemia, unspecified (ICD-10) H/O: CVA (cerebrovascular accident) ?Z86.73 - Personal history of transient ischemic attack (TIA), and cerebral infarction without residual deficits (ICD-10) Type 2 diabetes mellitus ?E11.9 - Type 2 diabetes mellitus without complications (ICD-10) Cerebrovascular disease ?I67.9 - Cerebrovascular disease, unspecified (ICD-10) Paroxysmal atrial fibrillation ?I48.0 - Paroxysmal atrial fibrillation (ICD-10) CKD (chronic kidney disease) stage 4, GFR 15-29 ml/min ?N18.4 - Chronic kidney disease, stage 4 (severe) (ICD-10) Type 2 diabetes mellitus with hyperglycemia ?E11.65 - Type 2 diabetes mellitus with hyperglycemia (ICD-10) Hypertension ?I10 - Essential (primary) hypertension (ICD-10) Cataract ?H26.9 - Unspecified cataract (ICD-10) Multiple myeloma ?C90.00 - Multiple myeloma not having achieved remission (ICD-10) Stroke ?I63.9 - Cerebral infarction, unspecified (ICD-10) Osteoarthritis of left knee ?M17.12 - Unilateral primary osteoarthritis, left knee (ICD-10) Hypertension ?I10 - Essential (primary) hypertension (ICD-10) Surgical History Hx of cholecystectomy ?Z90.49 - Acquired absence of other specified parts of digestive tract (ICD- 10) History of hysterectomy ?Z90.710 - Acquired absence of both cervix and uterus (ICD-10) Family History Mother Family history of CHF (congestive heart failure) Family history of diabetes mellitus Family history of stroke Sister Family history of CHF (congestive heart failure) Family history of diabetes mellitus Family history of hypertension Grandmother Family history of cancer Family history of diabetes mellitus Brother No problems noted. Father No problems noted. Social History Within the past year, how often did you have a drink containing alcohol: never Score interpretation: A score less than 3 is consistent with normal alcohol consumption. 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 Highest level of school completed/degree received: some college, no degree Are you now , , , , never or living with a partner: Little interest or pleasure in doing things: not at all Feeling down, depressed, or hopeless: not at all Feel stressed/tense/nervous/anxious/difficulty sleeping: not at all Do you think of yourself as: straight/heterosexual Gender Identity: female Meds Home Medications and Allergies Home Medications ?Medication ?Instructions ?Recorded ?Confirmed ?Type acyclovir 400 mg tablet 400 mg PO Q12H 04/19/23 10/10/24 History aspirin 81 mg capsule 81 mg PO DAILY 04/19/23 10/10/24 History atorvastatin 40 mg tablet 40 mg PO .once a day 04/19/23 10/10/24 History carvedilol 12.5 mg tablet 12.5 mg PO Q12H 04/19/23 10/10/24 History rivaroxaban 15 mg tablet (Xarelto) 15 mg PO Q24H 04/19/23 10/10/24 History cholecalciferol (vitamin D3) 25 25 mcg PO BEDTIME 06/19/23 10/10/24 History mcg (1,000 unit) capsule insulin NPH isoph U-100 human 100 10 unit subcut BID 06/19/23 10/10/24 History unit/mL (3 mL) subcutaneous pen (Humulin N NPH U-100 Insulin KwikPen) omega 0-ucf-ecz-fish oil 300 1 cap PO BID 06/19/23 10/10/24 History mg-1,000 mg capsule (Fish Oil) amlodipine 5 mg tablet 5 mg PO DAILY 10/10/24 10/10/24 History magnesium chloride 71.5 mg 71.5 mg PO DAILY 10/10/24 10/10/24 History (magnesium chloride) tablet,delayed release (Slow-Mag) Allergies Allergy/AdvReac Type Severity Reaction Status Date / Time lenalidomide (From Revlimid) Allergy Rash Verified 09/14/24 14:11 pregabalin (From Lyrica) Allergy Rash Verified 09/14/24 14:11 oxybutynin AdvReac Mild Rash Verified 09/14/24 14:11 Exam Constitutional Vital Signs, click to edit/add: Last Vital Signs Temp 97.6 F 10/12/24 03:38 Pulse 98 H 10/12/24 07:42 Resp 18 10/12/24 03:38 BP 108/70 10/12/24 03:38 Pulse Ox 96 10/12/24 03:38 O2 Del Method Room Air 10/12/24 03:38 Documenting provider has reviewed patient's vital signs: yes GI Common normals: Normal to inspection, nondistended, normoactive bowel sounds present and soft to palpation Palpation: soft and tender Details: epigastric and RLQ Neuro Common normals: oriented x3, CN's II-XII intact bilaterally, moves all extremities, no focal motor deficits and no sensory deficits noted Sensorium/orientation: awake, alert, oriented to person, oriented to place, oriented to time and other (Patient is hard of hearing.) Results Labs Labs: Abnormal lab results 10/11/24 10/11/24 10/11/24 Range/Units 11:13 13:00 16:08 RBC (4.20-5.40) 10^6/uL Hgb 7.8 L (12.0-16.0) g/dL Hct 24.2 L (36.0-48.0) % MCV (81.0-99.0) fL Chloride (98-107) mmol/L BUN (7.0-18.0) mg/dL Creatinine (0.55-1.02) mg/dL Est GFR ( Amer) (>=60 mL/min/1.73m^2) Est GFR (Non-Af Amer) (>=60 mL/min/1.73m^2) Glucose (74-106) mg/dL Calcium (8.5-10.1) mg/dL AST (15-37) U/L ALT (14-59) U/L Total Protein (6.4-8.2) g/dL Albumin (3.4-5.0) g/dL POC Glucose 206 H 118 H (74-106) mg/dL 10/11/24 10/11/24 10/12/24 Range/Units 18:35 21:17 00:15 RBC (4.20-5.40) 10^6/uL Hgb 7.6 L (12.0-16.0) g/dL Hct 23.9 L* (36.0-48.0) % MCV (81.0-99.0) fL Chloride (98-107) mmol/L BUN (7.0-18.0) mg/dL Creatinine (0.55-1.02) mg/dL Est GFR ( Amer) (>=60 mL/min/1.73m^2) Est GFR (Non-Af Amer) (>=60 mL/min/1.73m^2) Glucose (74-106) mg/dL Calcium (8.5-10.1) mg/dL AST (15-37) U/L ALT (14-59) U/L Total Protein (6.4-8.2) g/dL Albumin (3.4-5.0) g/dL POC Glucose 187 H 147 H (74-106) mg/dL 10/12/24 Range/Units 06:00 RBC 2.28 L (4.20-5.40) 10^6/uL Hgb 7.3 L (12.0-16.0) g/dL Hct 23.1 L* (36.0-48.0) % MCV 101.3 H (81.0-99.0) fL Chloride 112 H (98-107) mmol/L BUN 69.0 H (7.0-18.0) mg/dL Creatinine 3.09 H (0.55-1.02) mg/dL Est GFR ( Amer) 18 L (>=60 mL/min/1.73m^2) Est GFR (Non-Af Amer) 14 L (>=60 mL/min/1.73m^2) Glucose 138 H (74-106) mg/dL Calcium 8.1 L (8.5-10.1) mg/dL AST 10 L (15-37) U/L ALT 13 L (14-59) U/L Total Protein 4.9 L (6.4-8.2) g/dL Albumin 2.3 L (3.4-5.0) g/dL POC Glucose (74-106) mg/dL Diabetes panel 10/12/24 Range/Units 06:00 Sodium 144 (136-145) mmol/L Potassium 4.7 (3.5-5.1) mmol/L Chloride 112 H (98-107) mmol/L Carbon Dioxide 22.7 (21.0-32.0) mmol/L BUN 69.0 H (7.0-18.0) mg/dL Creatinine 3.09 H (0.55-1.02) mg/dL Glucose 138 H (74-106) mg/dL Calcium 8.1 L (8.5-10.1) mg/dL AST 10 L (15-37) U/L ALT 13 L (14-59) U/L Alkaline Phosphatase 66 (46-116) U/L Total Protein 4.9 L (6.4-8.2) g/dL Albumin 2.3 L (3.4-5.0) g/dL Calcium panel 10/12/24 Range/Units 06:00 Calcium 8.1 L (8.5-10.1) mg/dL Albumin 2.3 L (3.4-5.0) g/dL Pituitary panel 10/12/24 Range/Units 06:00 Sodium 144 (136-145) mmol/L Potassium 4.7 (3.5-5.1) mmol/L Chloride 112 H (98-107) mmol/L Carbon Dioxide 22.7 (21.0-32.0) mmol/L BUN 69.0 H (7.0-18.0) mg/dL Creatinine 3.09 H (0.55-1.02) mg/dL Glucose 138 H (74-106) mg/dL Calcium 8.1 L (8.5-10.1) mg/dL Adrenal panel 10/12/24 Range/Units 06:00 Sodium 144 (136-145) mmol/L Potassium 4.7 (3.5-5.1) mmol/L Chloride 112 H (98-107) mmol/L Carbon Dioxide 22.7 (21.0-32.0) mmol/L BUN 69.0 H (7.0-18.0) mg/dL Creatinine 3.09 H (0.55-1.02) mg/dL Glucose 138 H (74-106) mg/dL Calcium 8.1 L (8.5-10.1) mg/dL Total Bilirubin 0.3 (0.2-1.0) mg/dL AST 10 L (15-37) U/L ALT 13 L (14-59) U/L Alkaline Phosphatase 66 (46-116) U/L Total Protein 4.9 L (6.4-8.2) g/dL Albumin 2.3 L (3.4-5.0) g/dL All other labs normal. Assessment and Plan Assessment and Plan (1) Syncope and collapse: (2) Hypotension due to blood loss: (3) Upper gastrointestinal bleed: (4) Hematemesis with nausea: (5) Gastrointestinal hemorrhage with melena: (6) Hyperkalemia: (7) Paroxysmal atrial fibrillation: (8) CKD (chronic kidney disease) stage 4, GFR 15-29 ml/min: (9) Hypertension: Qualifiers: Hypertension type: primary hypertension Qualified Code(s): I10 - Essential (primary) hypertension (10) Type 2 diabetes mellitus: Qualifiers: Diabetes mellitus [facility] insulin use: with long term care social worker use Diabetes mellitus complication status: with kidney complications Diabetes mellitus complication detail: with chronic kidney disease Chronic kidney disease stage: stage 4 (GFR 15-29) Qualified Code(s): E11.22 - Type 2 diabetes mellitus with diabetic chronic kidney disease; N18.4 - Chronic kidney disease, stage 4 (severe); Z79.4 - manager intermediate (current) use of insulin (11) H/O: CVA (cerebrovascular accident): (12) HLD (hyperlipidemia): Qualifiers: Hyperlipidemia type: unspecified Qualified Code(s): E78.5 - Hyperlipidemia, unspecified Plan EGD with possible biopsy. Risks benefits and alternatives to the procedure may include infection bleeding perforation. She wished to proceed.
--- NOTE | 2024-10-12 08:17 | PM.GSPRC ---
Date of procedure: 10/12/24 Indications for Procedure: Hematemesis/melena/anemia Pre-op diagnosis: Hematemesis/melena/anemia Post-op diagnosis: other (Fundic gland polyps; normal esophagus stomach and duodenum without ulcers or any bleeding seen for old blood) Procedure: EGD with biopsy antrum Findings: Multiple fundic gland polyps otherwise normal [place] [facility] [place]geon: Yuniel Huggins Procedure Summary: Patient was taken to the endoscopy suite placed in left lateral common position and given sedation by the local hazmat driver. The Olympus EGD scope was advanced under direct visualization into the posterior pharynx esophagus stomach into the pylorus and the first second third and fourth portions of the duodenum. Duodenum was completely normal without ulcers polyps or tumors seen. The scope was returned to the stomach retroflexed on itself and there were multiple fundic gland polyps 1 of which was biopsied and hemostasis maintained and then the antrum was biopsied as well to rule out gastritis or H. pylori. No ulcers or gross tumors were seen. No old blood or active bleeding or clots were seen. No signs of bleeding were seen anywhere. The scope was then slowly withdrawn to the esophagus which was completely normal as well. Rectal digital exam was performed sphincter tone was found to be normal. No rectal masses were appreciated. There is no melena seen no blood found on the gloved finger. Estimated blood loss (mL): 0 Specimens: Antral biopsy and fundic gland polyp biopsy Complications: No Condition: stable Disposition: PACU
[2024-10-12] MEDS: PANTOPRAZOLE SODIUM 40 MG VIAL IV ×2 (09:18→22:45)
--- NOTE | 2024-10-12 10:42 | SWNOTE1 ---
REBECCA met with pt to discuss dc needs. Pt lives at home with her . She states he is there physically, but he can't do much to help in the home. She uses a walker, but voiced she has been weaker lately. She stated they both have home health coming in. She thinks she has [facility]. Pt voiced her daughter has been helping in the home with laundry, groceries, etc. Pt mentioned that therapy recommended SNF for a short term rehab stay. Pt is agreeable to this. REBECCA explained that Medicare requires 3 day inpt stay for them to pay. Pt was made inpt on 10/11. SW explained that pt is not discharged today. The doctor will come in tomorrow and determine if they have a medical reason to keep pt, if not then she will have to pay out of pocket. Pt voiced understanding. SW and pt reviewed list from Medicare.gov. Pt initially voiced she does not care. She then decided [facility] is her first choice and [facility] is her second choice. REBECCA to look in to this. [facility] only has a semi-private male room open. REBECCA waiting to hear back from Sandi at [facility].
--- NOTE | 2024-10-12 10:47 | PM.IMPN1 ---
Progress Note: A&P Assessment and Plan (1) Syncope and collapse: Assessment and Plan: Likely due to hypovolemia/hypotension. (2) Hypotension due to blood loss: Assessment and Plan: BP low earlier today. Better now. Hb 7.3 this morning. Ordered 2 units PRBC. (3) Upper gastrointestinal bleed: Assessment and Plan: On IV protonix. No overt/active bleeding. No sig finding or active bleeding on EGD today. Hb 7.3 today along with hypotension. Ordered 2 units PRBC. Hold ASA, xarelto for now. (4) Hematemesis with nausea: Assessment and Plan: No nausea or hematemesis. On IV protonix. No sig finding or active bleeding on EGD. Hb 7.3 today along with hypotension. Baseline Hb is 12. Ordered 2 units PRBC. Hold ASA, xarelto for now. (5) Gastrointestinal hemorrhage with melena: Assessment and Plan: No melena reported since yesterday morning. Hb 7.3 today along with hypotension. Baseline Hb is 12. Ordered 2 units PRBC. Hold ASA, xarelto for now. C/w protonix. (6) Hyperkalemia: Assessment and Plan: Resolved (7) Paroxysmal atrial fibrillation: Assessment and Plan: High chadvasc2 score, at high risk of stroke. Xarelto on hold. She is a good candidate for MARIAMA occlusion and should be evaluated for it as outpatient. (8) CKD (chronic kidney disease) stage 4, GFR 15-29 ml/min: Assessment and Plan: Cr worse than baseline. Ordered 2 unit PRBC. Will start on IVF. (9) Hypertension: Assessment and Plan: Hold oral antihypertensives for now. Monitor BP closely. Qualifiers: Hypertension type: primary hypertension Qualified Code(s): I10 - Essential (primary) hypertension (10) Type 2 diabetes mellitus: Assessment and Plan: SSI while inpatient. Qualifiers: Diabetes mellitus rn long term care insulin use: with prison use Diabetes mellitus complication status: with kidney complications Diabetes mellitus complication detail: with chronic kidney disease Chronic kidney disease stage: stage 4 (GFR 15-29) Qualified Code(s): E11.22 - Type 2 diabetes mellitus with diabetic chronic kidney disease; N18.4 - Chronic kidney disease, stage 4 (severe); Z79.4 - keno terminal operator (current) use of insulin (11) H/O: CVA (cerebrovascular accident): Assessment and Plan: Hold asa, kalynherbto (12) HLD (hyperlipidemia): Assessment and Plan: c/w statin Qualifiers: Hyperlipidemia type: unspecified Qualified Code(s): E78.5 - Hyperlipidemia, unspecified Plan Hypotensive earlier today. Started on IVF.Will receive 2 units PRBC. Monitor H&H closely post transfusion. If remains stable, could potentially be discharged tomorrow. Otherwise, will need additional testing or monitoring. Internal Medicine - PN: Subj Subjective Interval history: Seen and examined after patient had EGD earlier today. Earlier today, patient reported orthostatic hypotension and was hypotensive. Her BP subsequently improved. No melena reported since last morning. Exam Constitutional Vital Signs, click to edit/add: Last Vital Signs Temp 97.7 F 10/12/24 09:23 Pulse 105 H 10/12/24 10:00 Resp 18 10/12/24 09:23 BP 121/81 10/12/24 09:23 Pulse Ox 95 10/12/24 09:23 O2 Del Method Room Air 10/12/24 09:23 O2 Flow Rate 4 10/12/24 08:49 Documenting provider has reviewed patient's vital signs: yes Common normals: no apparent distress and oriented x3 General appearance: cooperative, ill appearing and frail appearing Respiratory Common normals: normal respiratory effort and clear to auscultation bilaterally Effort & inspection: able to speak in complete sentences Auscultation: clear to auscultation bilaterally Cardio Common normals: regular rate, S1 normal heart sound and S2 normal heart sound Rate: regular rate Rhythm: abnormal rhythm Heart sounds: S1 normal and S2 normal GI Common normals: Normal to inspection, nondistended, normoactive bowel sounds present, soft to palpation and no hepatosplenomegaly Palpation: soft, tender Details: epigastric and no hepatosplenomegaly Extremity Common normals: no clubbing, cyanosis or edema Neuro Common normals: oriented x3, moves all extremities and no focal motor deficits Psych Common normals: mental status grossly normal, denies hallucinations, denies homicidal ideation and denies suicidal ideation Internal Medicine - PN: Obj Da Labs Labs: Laboratory Results - last 24 hr 10/11/24 10/11/24 10/11/24 11:13 13:00 16:08 WBC RBC Hgb 7.8 L Hct 24.2 L MCV MCH MCHC RDW Plt Count MPV Neut % (Auto) Lymph % (Auto) [place] % (Auto) Eos % (Auto) Baso % (Auto) Neut # (Auto) Lymph # (Auto) [place] # (Auto) Eos # (Auto) Baso # (Auto) Abs Immat Gran (auto) Imm/Tot Granulo (auto) Sodium Potassium Chloride Carbon Dioxide Anion Gap BUN Creatinine Est GFR ( Amer) Est GFR (Non-Af Amer) BUN/Creatinine Ratio Glucose Calcium Total Bilirubin AST ALT Alkaline Phosphatase Total Protein Albumin Globulin Albumin/Globulin Ratio POC Glucose 206 H 118 H Blood Type A Positive Antibody Screen Negative Crossmatch See Detail 10/11/24 10/11/24 10/12/24 18:35 21:17 00:15 WBC RBC Hgb 7.6 L Hct 23.9 L* MCV MCH MCHC RDW Plt Count MPV Neut % (Auto) Lymph % (Auto) [place] % (Auto) Eos % (Auto) Baso % (Auto) Neut # (Auto) Lymph # (Auto) [place] # (Auto) Eos # (Auto) Baso # (Auto) Abs Immat Gran (auto) Imm/Tot Granulo (auto) Sodium Potassium Chloride Carbon Dioxide Anion Gap BUN Creatinine Est GFR ( Amer) Est GFR (Non-Af Amer) BUN/Creatinine Ratio Glucose Calcium Total Bilirubin AST ALT Alkaline Phosphatase Total Protein Albumin Globulin Albumin/Globulin Ratio POC Glucose 187 H 147 H Blood Type Antibody Screen Crossmatch 10/12/24 06:00 WBC 7.8 RBC 2.28 L Hgb 7.3 L Hct 23.1 L* MCV 101.3 H MCH 32.0 MCHC 31.6 RDW 13.2 Plt Count 169 MPV 12.1 Neut % (Auto) 52.6 Lymph % (Auto) 38.5 [place] % (Auto) 7.4 Eos % (Auto) 0.9 Baso % (Auto) 0.3 Neut # (Auto) 4.1 Lymph # (Auto) 3.0 [place] # (Auto) 0.6 Eos # (Auto) 0.1 Baso # (Auto) 0.0 Abs Immat Gran (auto) 0.02 Imm/Tot Granulo (auto) 0.3 Sodium 144 Potassium 4.7 Chloride 112 H Carbon Dioxide 22.7 Anion Gap 14.0 BUN 69.0 H Creatinine 3.09 H Est GFR ( Amer) 18 L Est GFR (Non-Af Amer) 14 L BUN/Creatinine Ratio 22.3 Glucose 138 H Calcium 8.1 L Total Bilirubin 0.3 AST 10 L ALT 13 L Alkaline Phosphatase 66 Total Protein 4.9 L Albumin 2.3 L Globulin 2.6 Albumin/Globulin Ratio 0.9 POC Glucose Blood Type Antibody Screen Crossmatch
--- NOTE | 2024-10-12 10:55 | SWNOTE1 ---
Sandi or Shahana did not answer at [facility]. REBECCA reached out to Sandi's cell phone, waiting to see if she returns call.
[2024-10-12] MEDS: 0.9 % SODIUM CHLORIDE 250 ML 10 ML IV (11:06)
--- NOTE | 2024-10-12 11:30 | SWNOTE1 ---
REBECCA heard back from Sandi and she requested REBECCA send over referral. Referral sent to [facility]. Referral included face sheet, ED note, H&P, provider notes, case management report,, nursing notes, diagnostic imaging, med list, and PT/OT notes.
--- NOTE | 2024-10-12 11:30 | CM.NOTE ---
Rounds made with Dr. Alvarez. Dr. Alvarez discussed lab results, EGD results and treatment plan w PRBCs & to get PT/OT eval. Hailee verbalized understanding. No discharge planned at present.
[2024-10-12 11:58] LABS: Glucometer 185 mg/dL (74-106)
--- NOTE | 2024-10-12 12:08 | SWNOTE1 ---
[facility] is able to accept. SW let pt, nurse, and doctor know. Pt is not stable for discharge today.
--- NOTE | 2024-10-12 12:25 | SWNOTE1 ---
Important Message from Medicare reviewed and discussed with patient. Pt. verbalized understanding and signed the form. Original given to patient and copy placed in patient?s chart.
--- NOTE | 2024-10-12 12:25 | SWNOTE1 ---
SW let pt know that [facility] is able to accept. Her daughter is in cafeteria, SW to stop back in this afternoon.
--- NOTE | 2024-10-12 13:10 | SWNOTE1 ---
SW completed HENS online.
--- NOTE | 2024-10-12 14:20 | SWNOTE1 ---
SW spoke to pt and daughter in room. SW let daughter know about [facility], she is in agreement. SW spoke with them about transportation. Pt's daughter is able to transport Tuesday after [facility]. SW took packet to the floor and let nurse know as well.
[2024-10-12] MEDS: 0.9 % SODIUM CHLORIDE 1,000 ML 100 ML IV (14:59)
[2024-10-12 16:09] LABS: Glucometer 148 mg/dL (74-106)
[2024-10-12 17:19] LABS: Hematocrit 30.4 % (36.0-48.0); Hemoglobin 10.1 g/dL (12.0-16.0)
[2024-10-12 20:05] LABS: Glucometer 172 mg/dL (74-106)
[2024-10-12 22:41] LABS: Hematocrit 36.1 % (36.0-48.0); Hemoglobin 11.6 g/dL (12.0-16.0)
[2024-10-12] MEDS: ATORVASTATIN CALCIUM 40 MG TABLET PO (22:46)
[2024-10-12] MEDS: CHOLECALCIFEROL (VITAMIN D3) 25 MCG/1,000 UNITS TABLET PO (22:46)
[2024-10-12] MEDS: HYOSCYAMINE SULFATE 0.125 MG TAB.SUBL SL (22:46)
[2024-10-12] MEDS: INSULIN ASPART 300 UNIT/3 ML PEN SUBQ (22:50)
[2024-10-13] VITALS (12 sets, daily range): BP systolic 118–174; BP diastolic 66–81; PULSE 87–124; TEMP 36.4–36.6; O2SAT 93–98
[2024-10-13] MEDS: 0.9 % SODIUM CHLORIDE 1,000 ML 100 ML IV (01:01)
[2024-10-13 06:43] LABS: Basophils Percent Auto 0.3 % (0.2-2.0); Eosinophils Absolute Auto 0.1 10^3/uL (0.0-0.7); Eosinophils Percent Auto 0.9 % (0.9-7.0); Hematocrit 31.3 % (36.0-48.0); Hemoglobin 10.2 g/dL (12.0-16.0); Immature Granulocytes Abs Auto 0.04 10^3/uL (0.00-0.03); Immature Granulocytes Pct Auto 0.5 % (0.0-0.5); Lymphocytes Absolute Auto 2.8 10^3/uL (1.2-3.8); Lymphocytes Percent Auto 36.2 % (20.5-60.0); Mean Corpuscular HGB Conc 32.6 g/dL (29.9-35.2); Mean Corpuscular Hemoglobin 31.6 pg (26.7-34.0); Mean Corpuscular Volume 96.9 fL (81.0-99.0); Mean Platelet Volume 11.7 fL (9.5-13.5); Monocytes Absolute Auto 0.6 10^3/uL (0.3-0.8); Monocytes Percent Auto 7.9 % (1.7-12.0); Neutrophils Absolute Auto 4.2 10^3/uL (1.4-6.5); Neutrophils Percent Auto 54.2 % (43.0-75.0); Platelet Count 168 10^3/uL (150-450); Red Blood Count 3.23 10^6/uL (4.20-5.40); Red Cell Distribution Width 16.6 % (11.0-15.0); White Blood Count 7.8 10^3/uL (4.0-11.0)
[2024-10-13 06:51] LABS: Alanine Aminotransferase 15 U/L (14-59); Albumin Globulin Ratio 0.9; Albumin Level 2.6 g/dL (3.4-5.0); Alkaline Phosphatase 75 U/L (46-116); Aspartate Amino Transferase 12 U/L (15-37); BUN Creatinine Ratio 17.7; Bilirubin Total 0.8 mg/dL (0.2-1.0); Calcium 7.9 mg/dL (8.5-10.1); Carbon Dioxide 22.5 mmol/L (21.0-32.0); Chloride 112 mmol/L (98-107); Estimated GFR (African America 20 (>=60 mL/min/1.73m^2); Estimated GFR (Non-African Ame 16 (>=60 mL/min/1.73m^2); Globulin 2.8 g/dL; Glucose 138 mg/dL (74-106); Potassium 4.5 mmol/L (3.5-5.1); Sodium 145 mmol/L (136-145); Total Protein 5.4 g/dL (6.4-8.2)
[2024-10-13 09:22] LABS: H Pylori Tissue, Urease Negative
[2024-10-13 11:11] LABS: Glucometer 158 mg/dL (74-106)
--- NOTE | 2024-10-13 11:18 | REH.PTDLY ---
Physical Therapy Daily Note PT Daily Note/Assess Start: 10/13/24 11:12 Freq: Status: Active Protocol: Document 10/13/24 11:13 KHURRAM (Rec: 10/13/24 11:18 KHURRAM [id number]) Physical Therapy Daily Note/Assessment Time In 10:36 Time Out 10:54 Subjective Pt up in chair upon arrival, agreeable to therapy. No complaints of pain at this time. Therapeutic Exercise Minutes (minutes) 7 Therapeutic Exercise Units 0 Therapeutic Exercise Treatment Instructed in B LE seated exs 10-12x ea with exs including LAQ, marching, HR, and hip abd for improved strength for ease of mobility. Therapeutic Activity Minutes (minutes) 9 Therapeutic Activity Units 1 Therapeutic Activity Comments Sit to stand transfers 3x in a row with pt using arm rests to stand upright CGA. Gait training with RW 60 feet CGA with noticeable physical fatigue last 10 feet of gait and pt verbally stating she is tired. Cues for pt to stand more upright to lessen the weight thru her arms as she voices that her arms get tired as well as her legs. CGA for returning to chair for safety. Total Therapy Minutes 16 Total Physical Therapy Units 1 Daily Note Summary Pt has noticeable fatigue with gait. Pt reports prior to September she was not using a RW, then had covid and this seemed to weaken pt. Pt would benefit from a rehab stay to improve strength and stability for ease of mobility in house and community.
--- NOTE | 2024-10-13 12:50 | PM.IMPN1 ---
Progress Note: A&P Assessment and Plan (1) Syncope and collapse: Assessment and Plan: Likely due to hypovolemia/hypotension. (2) Hypotension due to blood loss: Assessment and Plan: BP elevated and above goal. Will resume oral anyhypertensives. (3) Upper gastrointestinal bleed: Assessment and Plan: Switch to PO omeprazole. No sig finding or active bleeding on EGD today. Hb > 10, received 2 units PRBC. Hold ASA, xarelto for now. (4) Hematemesis with nausea: Assessment and Plan: No nausea or hematemesis. Switch to PO omeprazole. Received 2 units. Hb stable. No evidence of bleeding Hold ASA, xarelto for now. (5) Gastrointestinal hemorrhage with melena: Assessment and Plan: No melena reported since yesterday morning. Received 2 units. Hb stable. No evidence of bleeding Hold ASA, xarelto for now. (6) Hyperkalemia: Assessment and Plan: Resolved (7) Paroxysmal atrial fibrillation: Assessment and Plan: High chadvasc2 score, at high risk of stroke. Xarelto on hold. She is a good candidate for MARIAMA occlusion and should be evaluated for it as outpatient. (8) CKD (chronic kidney disease) stage 4, GFR 15-29 ml/min: Assessment and Plan: Cr back to its baseline. Stop IVF. (9) Hypertension: Assessment and Plan: BP above goal. Resume oral meds Qualifiers: Hypertension type: primary hypertension Qualified Code(s): I10 - Essential (primary) hypertension (10) Type 2 diabetes mellitus: Assessment and Plan: SSI while inpatient. Qualifiers: Diabetes mellitus mcfp insulin use: with dedicated intermodal truck driver use Diabetes mellitus complication status: with kidney complications Diabetes mellitus complication detail: with chronic kidney disease Chronic kidney disease stage: stage 4 (GFR 15-29) Qualified Code(s): E11.22 - Type 2 diabetes mellitus with diabetic chronic kidney disease; N18.4 - Chronic kidney disease, stage 4 (severe); Z79.4 - termite renewal inspector (current) use of insulin (11) H/O: CVA (cerebrovascular accident): Assessment and Plan: Hold asa, xarelto (12) HLD (hyperlipidemia): Assessment and Plan: c/w statin Qualifiers: Hyperlipidemia type: unspecified Qualified Code(s): E78.5 - Hyperlipidemia, unspecified Plan BP stable. Hb stable. No overt bleeding. Monitor serial H&H. Resume oral anti hypertensives. If BP and Hb remains consistently/reliably stable, she may be be discharged tomorrow. Internal Medicine - PN: Subj Subjective Interval history: Seen and examined. Feeling much better today. Denies nausea, vomiting. Hb is now stable. No evidence of bleeding. Exam Constitutional Vital Signs, click to edit/add: Last Vital Signs Temp 97.8 F 10/13/24 11:00 Pulse 88 10/13/24 11:00 Resp 16 10/13/24 11:00 BP 143/81 H 10/13/24 11:00 Pulse Ox 95 10/13/24 11:37 O2 Del Method Room Air 10/13/24 11:37 O2 Flow Rate 4 10/12/24 08:49 Documenting provider has reviewed patient's vital signs: yes Common normals: no apparent distress and oriented x3 General appearance: cooperative and frail appearing Respiratory Common normals: normal respiratory effort and clear to auscultation bilaterally Effort & inspection: able to speak in complete sentences Auscultation: clear to auscultation bilaterally Cardio Common normals: regular rate, S1 normal heart sound and S2 normal heart sound Rate: regular rate Rhythm: abnormal rhythm Heart sounds: S1 normal and S2 normal GI Common normals: Normal to inspection, nondistended, normoactive bowel sounds present, soft to palpation and no hepatosplenomegaly Palpation: soft, tender Details: epigastric and no hepatosplenomegaly Extremity Common normals: no clubbing, cyanosis or edema Neuro Common normals: oriented x3, moves all extremities and no focal motor deficits Psych Common normals: mental status grossly normal, denies hallucinations, denies homicidal ideation and denies suicidal ideation Internal Medicine - PN: Obj Da Labs Labs: Laboratory Results - last 24 hr 10/11/24 10/12/24 10/12/24 13:00 09:14 16:07 WBC RBC Hgb Hct MCV MCH MCHC RDW Plt Count MPV Neut % (Auto) Lymph % (Auto) [place] % (Auto) Eos % (Auto) Baso % (Auto) Neut # (Auto) Lymph # (Auto) [place] # (Auto) Eos # (Auto) Baso # (Auto) Abs Immat Gran (auto) Imm/Tot Granulo (auto) Sodium Potassium Chloride Carbon Dioxide Anion Gap BUN Creatinine Est GFR ( Amer) Est GFR (Non-Af Amer) BUN/Creatinine Ratio Glucose Calcium Total Bilirubin AST ALT Alkaline Phosphatase Total Protein Albumin Globulin Albumin/Globulin Ratio H. pylori Urease Test Negative POC Glucose 148 H Blood Type A Positive Antibody Screen Negative Crossmatch See Detail 10/12/24 10/12/24 10/12/24 17:10 19:54 22:30 WBC RBC Hgb 10.1 L 11.6 L Hct 30.4 L 36.1 MCV MCH MCHC RDW Plt Count MPV Neut % (Auto) Lymph % (Auto) [place] % (Auto) Eos % (Auto) Baso % (Auto) Neut # (Auto) Lymph # (Auto) [place] # (Auto) Eos # (Auto) Baso # (Auto) Abs Immat Gran (auto) Imm/Tot Granulo (auto) Sodium Potassium Chloride Carbon Dioxide Anion Gap BUN Creatinine Est GFR ( Amer) Est GFR (Non-Af Amer) BUN/Creatinine Ratio Glucose Calcium Total Bilirubin AST ALT Alkaline Phosphatase Total Protein Albumin Globulin Albumin/Globulin Ratio H. pylori Urease Test POC Glucose 172 H Blood Type Antibody Screen Crossmatch 10/13/24 10/13/24 06:28 11:11 WBC 7.8 RBC 3.23 L Hgb 10.2 L Hct 31.3 L MCV 96.9 MCH 31.6 MCHC 32.6 RDW 16.6 H Plt Count 168 MPV 11.7 Neut % (Auto) 54.2 Lymph % (Auto) 36.2 [place] % (Auto) 7.9 Eos % (Auto) 0.9 Baso % (Auto) 0.3 Neut # (Auto) 4.2 Lymph # (Auto) 2.8 [place] # (Auto) 0.6 Eos # (Auto) 0.1 Baso # (Auto) 0.0 Abs Immat Gran (auto) 0.04 H Imm/Tot Granulo (auto) 0.5 Sodium 145 Potassium 4.5 Chloride 112 H Carbon Dioxide 22.5 Anion Gap 15.0 BUN 49.0 H Creatinine 2.77 H Est GFR ( Amer) 20 L Est GFR (Non-Af Amer) 16 L BUN/Creatinine Ratio 17.7 Glucose 138 H Calcium 7.9 L Total Bilirubin 0.8 AST 12 L ALT 15 Alkaline Phosphatase 75 Total Protein 5.4 L Albumin 2.6 L Globulin 2.8 Albumin/Globulin Ratio 0.9 H. pylori Urease Test POC Glucose 158 H Blood Type Antibody Screen Crossmatch
[2024-10-13] MEDS: INSULIN ASPART 300 UNIT/3 ML PEN SUBQ ×3 (13:13→21:25)
[2024-10-13 16:00] LABS: Hematocrit 31.7 % (36.0-48.0); Hemoglobin 10.7 g/dL (12.0-16.0)
[2024-10-13 17:46] LABS: Glucometer 148 mg/dL (74-106)
[2024-10-13 20:03] LABS: Glucometer 152 mg/dL (74-106)
[2024-10-13] MEDS: ACETAMINOPHEN 325 MG TABLET 650 MG PO (21:24)
[2024-10-13] MEDS: HYOSCYAMINE SULFATE 0.125 MG TAB.SUBL SL (21:24)
[2024-10-13] MEDS: CHOLECALCIFEROL (VITAMIN D3) 25 MCG/1,000 UNITS TABLET PO (21:24)
[2024-10-13] MEDS: CARVEDILOL 12.5 MG TABLET PO (21:24)
[2024-10-13] MEDS: OMEPRAZOLE 40 MG CAPSULE.DR PO (21:24)
[2024-10-13] MEDS: ATORVASTATIN CALCIUM 40 MG TABLET PO (21:25)
[2024-10-14 04:45] VITALS: O2SAT 92
[2024-10-14 05:36] VITALS: BP 116/73; PULSE 83; TEMP 36.4; O2SAT 91
[2024-10-14 06:41] LABS: Alanine Aminotransferase 18 U/L (14-59); Albumin Globulin Ratio 0.9; Albumin Level 2.5 g/dL (3.4-5.0); Alkaline Phosphatase 79 U/L (46-116); Anion Gap 13.9; Aspartate Amino Transferase 15 U/L (15-37); BUN Creatinine Ratio 13.6; Bilirubin Total 0.6 mg/dL (0.2-1.0); Calcium 8.4 mg/dL (8.5-10.1); Carbon Dioxide 20.4 mmol/L (21.0-32.0); Chloride 113 mmol/L (98-107); Estimated GFR (African America 20 (>=60 mL/min/1.73m^2); Estimated GFR (Non-African Ame 17 (>=60 mL/min/1.73m^2); Globulin 2.9 g/dL; Glucose 142 mg/dL (74-106); Potassium 4.3 mmol/L (3.5-5.1); Sodium 143 mmol/L (136-145); Total Protein 5.4 g/dL (6.4-8.2)
[2024-10-14 06:41] LABS: Basophils Percent Auto 0.4 % (0.2-2.0); Eosinophils Absolute Auto 0.1 10^3/uL (0.0-0.7); Eosinophils Percent Auto 0.9 % (0.9-7.0); Hematocrit 29.8 % (36.0-48.0); Hemoglobin 9.9 g/dL (12.0-16.0); Immature Granulocytes Abs Auto 0.03 10^3/uL (0.00-0.03); Immature Granulocytes Pct Auto 0.4 % (0.0-0.5); Lymphocytes Absolute Auto 2.5 10^3/uL (1.2-3.8); Lymphocytes Percent Auto 32.3 % (20.5-60.0); Mean Corpuscular HGB Conc 33.2 g/dL (29.9-35.2); Mean Corpuscular Hemoglobin 32.2 pg (26.7-34.0); Mean Corpuscular Volume 97.1 fL (81.0-99.0); Mean Platelet Volume 11.3 fL (9.5-13.5); Monocytes Absolute Auto 0.6 10^3/uL (0.3-0.8); Monocytes Percent Auto 7.5 % (1.7-12.0); Neutrophils Absolute Auto 4.5 10^3/uL (1.4-6.5); Neutrophils Percent Auto 58.5 % (43.0-75.0); Platelet Count 148 10^3/uL (150-450); Red Blood Count 3.07 10^6/uL (4.20-5.40); Red Cell Distribution Width 15.9 % (11.0-15.0); White Blood Count 7.7 10^3/uL (4.0-11.0)
[2024-10-14 08:05] VITALS: BP 118/76; PULSE 102; TEMP 36.4; O2SAT 93
[2024-10-14] MEDS: CARVEDILOL 12.5 MG TABLET PO (09:27)
[2024-10-14] MEDS: AMLODIPINE BESYLATE 5 MG TABLET PO (09:27)
[2024-10-14] MEDS: OMEPRAZOLE 40 MG CAPSULE.DR PO (09:27)
--- NOTE | 2024-10-14 09:54 | PM.DS1 ---
DS: Providers Provider Date of admission: 10/11/24 10:04 Primary care physician: Karie Mcfadden MD Admitting clinician: Shaikh Kim Attending physician on admission: Shaikh Kim Consults: 10/10/24 17:21 Occupational Therapy Eval and Treat Routine Reason for consultation: Ambulatory dysfunction/weakness Physical Therapy Eval and Treat Routine Reason for consultation: Ambulatory dysfunction/weakness 10/11/24 09:57 Consult to General Surgeon Routine Consulting Provider: Yuniel Huggins Reason for consultation: Hematemesis, melena. Attending physician on discharge: Shaikh Kim Discharging clinician: Shaikh Kim Anticipated date of discharge: 10/14/24 DS: Diagnosis Discharge Diagnosis (1) Syncope and collapse: (2) Hypotension due to blood loss: (3) Upper gastrointestinal bleed: (4) Hematemesis with nausea: (5) Gastrointestinal hemorrhage with melena: (6) Hyperkalemia: (7) Paroxysmal atrial fibrillation: (8) CKD (chronic kidney disease) stage 4, GFR 15-29 ml/min: (9) Hypertension: Qualifiers: Hypertension type: primary hypertension Qualified Code(s): I10 - Essential (primary) hypertension (10) Type 2 diabetes mellitus: Qualifiers: Diabetes mellitus exterminator helper insulin use: with prison use Diabetes mellitus complication status: with kidney complications Diabetes mellitus complication detail: with chronic kidney disease Chronic kidney disease stage: stage 4 (GFR 15-29) Qualified Code(s): E11.22 - Type 2 diabetes mellitus with diabetic chronic kidney disease; N18.4 - Chronic kidney disease, stage 4 (severe); 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 She could barely get out of her bed and use the restroom. She noticed she had large amount of black-colored stools in the toilet. Afterwards she was unable to get up and called for help but her is hard of hearing so he could not hear her from the restroom. She tried to gather her strength and return to her bedroom and felt too weak to walk and fell on the floor. After falling on the floor, she had few episodes of vomiting with bright red blood and afterwards she passed out briefly. She was brought into ED by EMS. Upon arrival her blood pressure was slightly low that improved with IV hydration. Workup in ER revealed that her hemoglobin was 10.1. Her baseline hemoglobin is 12 or above. Her stool was positive for occult blood. Patient was admitted for UGIB, started on IV protonix, and her ASA, xarelto were withheld. Patient had one episode of melanotics stools during admission. Her Hb trended down to 7.3 during hospital stay and she received 2 units of PRBC. During the course of admission, her BP remained borderline low and her anti hypertensives were withheld for the most part. Patient had an EGD that did not reveal any sig finding and no active bleeding was noted on EGD. Patient's Hb remained stable after transfusion. Her BP also improved and her BP medications were resumed on 10/13/24. Patient was also evaluated by PT/OT and it was recommended that she will benefit from SNF placement to improve her functional status. I had an extensive discussion with patient about her risk of stroke and risk of bleeding given her age, CKD. I also provided information to her about MARIAMA closure aka Watchman device as an option for her and recommended that she discuss that with her Raw Stock Drier Tender. For now, given her age and renal dysfunction, I will switch her Eliquis 2.5 q12. Stop ASA and start her on PO omeprazole daily. She was also instructed to avoid NSAIDS. I recommend repeat CBC within one week and f/u with PCP and Cardiology in 1-2 weeks She was also educated on signs and symptoms of bleeding and was instructed to return to ED if she noticed blood in stool, melanotic stools or low blood pressure/SOB, chest pain. Status at Discharge Functional status at discharge: uses cane/walker Overall status at discharge: patient is back to baseline Time Spent with Patient Time attestation: Total time spent providing and/or coordinating discharge services: Time spent: greater than 30 minutes Exam Constitutional Vital Signs, click to edit/add: Last Vital Signs Temp 97.6 F 10/14/24 08:05 Pulse 102 H 10/14/24 08:05 Resp 18 10/14/24 08:05 BP 118/76 10/14/24 08:05 Pulse Ox 93 L 10/14/24 08:05 O2 Del Method Room Air 10/14/24 08:05 O2 Flow Rate 4 10/12/24 08:49 Documenting provider has reviewed patient's vital signs: yes Common normals: no apparent distress and oriented x3 General appearance: cooperative and frail appearing Respiratory Common normals: normal respiratory effort and clear to auscultation bilaterally Effort & inspection: able to speak in complete sentences Auscultation: clear to auscultation bilaterally Cardio Common normals: regular rate, S1 normal heart sound and S2 normal heart sound Rate: regular rate Rhythm: abnormal rhythm Heart sounds: S1 normal and S2 normal GI Common normals: Normal to inspection, nondistended, normoactive bowel sounds present, soft to palpation and no hepatosplenomegaly Palpation: soft, tender Details: epigastric and no hepatosplenomegaly Extremity Common normals: no clubbing, cyanosis or edema Neuro Common normals: oriented x3, moves all extremities and no focal motor deficits Psych Common normals: mental status grossly normal, denies hallucinations, denies homicidal ideation and denies suicidal ideation DS: Data Data Completed and Pending Labs on day of discharge: Labs from last 24 hours 10/14/24 10/14/24 10/13/24 06:36 05:46 19:47 WBC 7.7 RBC 3.07 L Hgb 9.9 L Hct 29.8 L MCV 97.1 MCH 32.2 MCHC 33.2 RDW 15.9 H Plt Count 148 L MPV 11.3 Neut % (Auto) 58.5 Lymph % (Auto) 32.3 [place] % (Auto) 7.5 Eos % (Auto) 0.9 Baso % (Auto) 0.4 Neut # (Auto) 4.5 Lymph # (Auto) 2.5 [place] # (Auto) 0.6 Eos # (Auto) 0.1 Baso # (Auto) 0.0 Abs Immat Gran (auto) 0.03 Imm/Tot Granulo (auto) 0.4 Sodium 143 Potassium 4.3 Chloride 113 H Carbon Dioxide 20.4 L Anion Gap 13.9 BUN 37.0 H Creatinine 2.73 H Est GFR ( Amer) 20 L Est GFR (Non-Af Amer) 17 L BUN/Creatinine Ratio 13.6 Glucose 142 H Calcium 8.4 L Total Bilirubin 0.6 AST 15 ALT 18 Alkaline Phosphatase 79 Total Protein 5.4 L Albumin 2.5 L Globulin 2.9 Albumin/Globulin Ratio 0.9 POC Glucose 152 H 10/13/24 10/13/24 10/13/24 17:35 15:56 11:11 WBC RBC Hgb 10.7 L Hct 31.7 L MCV MCH MCHC RDW Plt Count MPV Neut % (Auto) Lymph % (Auto) [place] % (Auto) Eos % (Auto) Baso % (Auto) Neut # (Auto) Lymph # (Auto) [place] # (Auto) Eos # (Auto) Baso # (Auto) Abs Immat Gran (auto) Imm/Tot Granulo (auto) Sodium Potassium Chloride Carbon Dioxide Anion Gap BUN Creatinine Est GFR ( Amer) Est GFR (Non-Af Amer) BUN/Creatinine Ratio Glucose Calcium Total Bilirubin AST ALT Alkaline Phosphatase Total Protein Albumin Globulin Albumin/Globulin Ratio POC Glucose 148 H 158 H Discharge Plan Discharge Disposition: [facility] SN[facility] Condition: Fair Discharge Medications: New omeprazole 40 mg capsule,delayed release(DR/EC) 40 mg PO DAILY Qty: 30 0RF Eliquis 2.5 mg tablet 2.5 mg PO BID Qty: 60 0RF Continued atorvastatin 40 mg tablet 40 mg PO .once a day carvedilol 12.5 mg tablet 12.5 mg PO Q12H Humulin N NPH Insulin KwikPen 100 unit/mL (3 mL) insulin pen 10 unit subcut BID cholecalciferol (vitamin D3) 25 mcg (1,000 unit) capsule 25 mcg PO BEDTIME omega 5-[id number]-tzu-fish oil [Fish Oil] 300-1,000 mg capsule 1 cap PO BID amlodipine 5 mg tablet 5 mg PO DAILY Slow-Mag 71.5 mg tablet,delayed release (DR/EC) 71.5 mg PO DAILY Discontinued acyclovir 400 mg tablet 400 mg PO Q12H Xarelto 15 mg tablet 15 mg PO Q24H aspirin 81 mg capsule 81 mg PO DAILY Print Language: Prydein[employer] Systems Integration Advisor/Contact Lens Cutter Instructions: Discharge to [facility] skilled. Forms: Portal Instructions Follow Up Appointments: Follow up with PCP in one week F/u with Cardiology in 1-2 weeks
[2024-10-14 10:24] VITALS: O2SAT 94
[2024-10-14 10:44] VITALS: BP 136/72; PULSE 96; TEMP 36.6; O2SAT 95
--- NOTE | 2024-10-14 12:33 | PC.NURSE ---
At 12:30pm science writer called report to nurse Duarte, as the nurse caring for pt upon admit to [facility] was not available to take report at this time. science writer did express that an earlier attempt to call report was done and that pt was on her way to facility with daughter at this time.
== END 2024-10-14 12:18 | DRG 378 ==
LOC: ER 16:41 → MS 10-12 07:07
PROVIDERS: Surgery; Admitting Provider Internal Medicine; Emergency Provider Emergency Medicine; PCP Family Medicine; Visit Provider Internal Medicine
PROC: 0DB78ZX Excision of Stomach, Pylorus, Via Natural or Artificial Opening Endoscopic, Diagnostic (ICD-10-PCS; principal; 2024-10-12 08:25)
DX: K92.1 Melena (principal); C90.00 Multiple myeloma not having achieved remission; D62 Acute posthemorrhagic anemia; N18.4 Chronic kidney disease, stage 4 (severe); K92.0 Hematemesis; R55 Syncope and collapse; I95.89 Other hypotension; Z79.01 Long term (current) use of anticoagulants; Z79.82 Long term (current) use of aspirin; E87.5 Hyperkalemia; I48.0 Paroxysmal atrial fibrillation; Z86.73 Personal history of transient ischemic attack (TIA), and cerebral infarction without residual deficits; I12.9 Hypertensive chronic kidney disease with stage 1 through stage 4 chronic kidney disease, or unspecified chronic kidney disease; E11.22 Type 2 diabetes mellitus with diabetic chronic kidney disease; Z79.4 Long term (current) use of insulin; E78.5 Hyperlipidemia, unspecified; Z91.81 History of falling; Z90.49 Acquired absence of other specified parts of digestive tract; Z90.710 Acquired absence of both cervix and uterus; I67.9 Cerebrovascular disease, unspecified; K31.7 Polyp of stomach and duodenum
CPT/HCPCS: 36415; 36430; 36591; 70450; 71045; 72125; 74176; 80048; 80053; 80076; 82948; 84484; 85014; 85018; 85025; 86850; 86900; 86901; 86923; 87077; 93005; 94761; 96374; 96375; 97162; 97165; 97530; 99285; 99999; G0328; G0378; J2405; J2704; P9016

== ENCOUNTER 2024-11-21 17:17 | Inpatient (IN) | payer MEDICARE, OTHER, SELFPAY ==
[2024-11-21] VITALS (23 sets, daily range): BP systolic 129–161; BP diastolic 55–91; PULSE 73–96; TEMP 36.3–36.7; O2SAT 92–97; BMI 31.5; BMI 29.4
--- NOTE | 2024-11-21 17:41 | XR_ITS ---
The [place] [id number] Patient Name: MARTHA GOMEZ MRN: [id number] date: 1940 Sex: F Assigned Patient Location: ER Current Patient Location: [place] Accession/Order Number: [id number] Exam Date: 11/21/2024 17:53 Report Date: 11/21/2024 20:23 At the request of: BRANDON MONTEMAYOR Procedure: XR chest 1V ONE-VIEW CHEST RADIOGRAPH, 11/21/2024 5:53 PM EST COMPARISON: Chest, 10/10/2024. CLINICAL HISTORY: SOB Findings and impression: 1. Right internal jugular portacatheter in place with tip in superior aspect the right atrium remains stable. No pneumothorax. 2. Minimal bibasilar atelectasis, left greater than right suspected. Lungs otherwise clear. 3. Stable heart size. 4. No acute osseous abnormality. Electronically authenticated by: Ruben MURRY Date: 11/21/2024 20:23
--- NOTE | 2024-11-21 17:41 | ECG_ITS ---
The [facility] Test Date: 2024-11-21 Pat Name: MARTHA GOMEZ Department: Room: - Gender: Female Named Account Executive: : 1940 Requested By: CURT CLARK Order Number: [id number] Reading MD: YOEL MAIN Measurements Intervals [place] Rate: 84 P: -[id number] MO: -[id number] QRS: 71 QRSD: 86 T: 98 QT: 396 QTc: 437 Interpretive Statements [address]/T wave changes 9140 abnormal rhythm ECG Electronically Signed On 11-21-2024 20:50:58 EST by YOEL MAIN
--- NOTE | 2024-11-21 17:43 | ED_ITS ---
HPI - SOB/Dyspnea General Chief Complaint: Shortness of Breath/Dyspnea Stated Complaint: weakness, trouble breathing Time Seen by Provider: 11/21/24 17:21 Source: patient Mode of arrival: Wheelchair History of Present Illness HPI Narrative: Patient presents to ED complaining of shortness of breath. Patient's had increased shortness of breath for the past 2 days. She is also developed a cough. She has a history of A-fib and felt like it was elevated last night. She said she cannot really tell if it is still elevated today or not. She also was recently in the hospital for a GI bleed due to her Xarelto. She had some polyps that they think were bleeding. She was taken off her Xarelto and switched to Eliquis. She did receive 2 units of blood at that time when she was here for the GI bleed recently. She then spent time at [facility] and was discharged from there less than a month ago. She is home with the daughter. She denies chest pain but just reports generalized weakness increased shortness of breath especially with exertion and fatigue. She is alert and oriented answering all questions appropriately. She does take iron pills so she is unsure if the dark stool is from iron pills or blood. No abdominal pain Related Data Home Medications ?Medication ?Instructions ?Recorded ?Confirmed atorvastatin 40 mg tablet 40 mg PO .once a day 04/19/23 11/21/24 carvedilol 12.5 mg tablet 12.5 mg PO Q12H 04/19/23 11/21/24 cholecalciferol (vitamin D3) 25 25 mcg PO BEDTIME 06/19/23 11/21/24 mcg (1,000 unit) capsule insulin NPH isoph U-100 human 100 10 unit subcut BID 06/19/23 11/21/24 unit/mL (3 mL) subcutaneous pen (Humulin N NPH U-100 Insulin KwikPen) omega 2-fjb-dfs-fish oil 300 1 cap PO BID 06/19/23 11/21/24 mg-1,000 mg capsule (Fish Oil) amlodipine 5 mg tablet 5 mg PO DAILY 10/10/24 11/21/24 magnesium chloride 71.5 mg 71.5 mg PO DAILY 10/10/24 11/21/24 (magnesium chloride) tablet,delayed release (Slow-Mag) acyclovir 400 mg tablet 400 mg PO BID 11/21/24 11/21/24 escitalopram oxalate 10 mg tablet 10 mg PO DAILY 11/21/24 11/21/24 omeprazole 20 mg capsule,delayed 20 mg PO DAILY 11/21/24 11/21/24 release Previous Rx's ?Medication ?Instructions ?Recorded apixaban 2.5 mg tablet (Eliquis) 2.5 mg PO BID #60 tabs 10/14/24 docusate sodium 100 mg capsule 100 mg PO DAILY #30 caps 10/14/24 (Colace) ferrous sulfate 325 mg (65 mg 325 mg PO DAILY #30 tabs 10/14/24 iron) tablet Allergies Allergy/AdvReac Type Severity Reaction Status Date / Time lenalidomide (From Revlimid) Allergy Rash Verified 09/14/24 14:11 pregabalin (From Lyrica) Allergy Rash Verified 09/14/24 14:11 oxybutynin AdvReac Mild Rash Verified 09/14/24 14:11 Review of Systems ROS Status of ROS 10 or more systems reviewed and unremark able except as noted in history and below [facility] Medical History (Updated 10/18/24 @ 00:01 by ) Gastrointestinal hemorrhage with melena ?K92.1 - Melena (ICD-10) Upper gastrointestinal bleed ?K92.2 - Gastrointestinal hemorrhage, unspecified (ICD-10) Syncope and collapse ?R55 - Syncope and collapse (ICD-10) GI bleeding ?K92.2 - Gastrointestinal hemorrhage, unspecified (ICD-10) HLD (hyperlipidemia) ?E78.5 - Hyperlipidemia, unspecified (ICD-10) H/O: CVA (cerebrovascular accident) ?Z86.73 - Personal history of transient ischemic attack (TIA), and cerebral infarction without residual deficits (ICD-10) Type 2 diabetes mellitus ?E11.9 - Type 2 diabetes mellitus without complications (ICD-10) Cerebrovascular disease ?I67.9 - Cerebrovascular disease, unspecified (ICD-10) Paroxysmal atrial fibrillation ?I48.0 - Paroxysmal atrial fibrillation (ICD-10) CKD (chronic kidney disease) stage 4, GFR 15-29 ml/min ?N18.4 - Chronic kidney disease, stage 4 (severe) (ICD-10) Type 2 diabetes mellitus with hyperglycemia ?E11.65 - Type 2 diabetes mellitus with hyperglycemia (ICD-10) Hypertension ?I10 - Essential (primary) hypertension (ICD-10) Cataract ?H26.9 - Unspecified cataract (ICD-10) Multiple myeloma ?C90.00 - Multiple myeloma not having achieved remission (ICD-10) Stroke ?I63.9 - Cerebral infarction, unspecified (ICD-10) Osteoarthritis of left knee ?M17.12 - Unilateral primary osteoarthritis, left knee (ICD-10) Hypertension ?I10 - Essential (primary) hypertension (ICD-10) Surgical History Hx of cholecystectomy ?Z90.49 - Acquired absence of other specified parts of digestive tract (ICD- 10) History of hysterectomy ?Z90.710 - Acquired absence of both cervix and uterus (ICD-10) Family History Mother Family history of CHF (congestive heart failure) Family history of diabetes mellitus Family history of stroke Sister Family history of CHF (congestive heart failure) Family history of diabetes mellitus Family history of hypertension Grandmother Family history of cancer Family history of diabetes mellitus Brother No problems noted. Father No problems noted. Social History Within the past year, how often did you have a drink containing alcohol: never Score interpretation: A score less than 3 is consistent with normal alcohol consumption. 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 Highest level of school completed/degree received: some college, no degree Are you now , , , , never or living with a partner: Little interest or pleasure in doing things: not at all Feeling down, depressed, or hopeless: not at all Feel stressed/tense/nervous/anxious/difficulty sleeping: not at all Do you think of yourself as: straight/heterosexual Gender Identity: female Exam Narrative Exam Narrative: Time Seen: [] Vital Signs: [Per nurse's notes.] General: [Alert] pale appearing Skin: [Warm, dry, no rash.] Head: [Normocephalic, atraumatic.] Neck: [Supple, trachea midline.] Eye: [Pupils are equal, round and reactive to light, extraocular movements are intact, normal conjunctiva.] Ears, nose, mouth and throat: oral mucosa moist. Cardiovascular: Irregularly irregular, rate controlled, no murmur.] Respiratory: Diminished breath sounds bilateral bases respirations are non- labored, breath sounds are equal.] Chest wall: [No tenderness, no deformity.] Gastrointestinal: [Soft, nontender, non distended, normal bowel sounds.] MSK: 5 out of 5 muscle strength x 4 extremities no calf pain or edema Lymphatics: [No lymphadenopathy.] Psychiatric: [Cooperative, appropriate mood & affect.] Neurological: [Alert and oriented to person, place, time, and situation, no focal neurological deficit observed.] Constitutional Vital Signs, click to edit/add: Last Vital Signs Temp 98.1 F 11/21/24 17:24 Pulse 80 11/21/24 17:24 Resp 22 H 11/21/24 17:24 BP 129/55 11/21/24 17:24 Pulse Ox 95 11/21/24 17:24 O2 Del Method Room Air 11/21/24 17:24 Course Vital Signs Vital signs: Vital Signs Temperature 98.1 F 11/21/24 17:24 Pulse Rate 80 11/21/24 17:24 Respiratory Rate 22 H 11/21/24 17:24 Blood Pressure 129/55 11/21/24 17:24 Pulse Oximetry 95 11/21/24 17:24 Oxygen Delivery Method Room Air 11/21/24 17:24 Temperature 98.1 F 11/21/24 17:24 Pulse Rate 80 11/21/24 17:24 Respiratory Rate 22 H 11/21/24 17:24 Blood Pressure 129/55 11/21/24 17:24 Pulse Oximetry 95 11/21/24 17:24 Oxygen Delivery Method Room Air 11/21/24 17:24 MDM - SOB/Dyspnea MDM Narrative Medical decision making narrative: Patient's labs show that she has a severely elevated BNP and is in congestive heart failure. She was given 40 of Lasix IV here in ED. She is pretty short of breath and gets winded easily with minimal tasks and has to take breaks. I think she would benefit from overnight admission with diuresis overnight to help with the congestive heart failure and shortness of breath. Troponin negative x 1. Flu and COVID are negative. No evidence of pneumonia on x-ray. Patient's hemoglobin is stable. Hemoccult was negative. I spoke to Trish who is comfortable with care plan for admission overnight. Patient and family are also comfortable with care plan. Patient is able in ED. Differential Diagnosis Differential diagnosis: Likely congestive heart failure, community acquired pneumonia and other (Anemia, A-fib, chest pain NSTEMI) Medical Records Attestation: I reviewed the patient's medical records. Lab Data Attestation: I reviewed the patient's lab results. Labs: Lab Results 11/21/24 11/21/24 11/21/24 Range/Units 17:36 17:43 18:17 WBC 8.1 (4.0-11.0) 10^3/uL RBC 3.83 L (4.20-5.40) 10^6/uL Hgb 11.9 L (12.0-16.0) g/dL Hct 37.4 (36.0-48.0) % MCV 97.7 (81.0-99.0) fL MCH 31.1 (26.7-34.0) pg MCHC 31.8 (29.9-35.2) g/dL RDW 13.1 (11.0-15.0) % Plt Count 244 (150-450) 10^3/uL MPV 11.8 (9.5-13.5) fL Neut % (Auto) 63.1 (43.0-75.0) % Lymph % (Auto) 28.9 (20.5-60.0) % [place] % (Auto) 6.2 (1.7-12.0) % Eos % (Auto) 1.0 (0.9-7.0) % Baso % (Auto) 0.4 (0.2-2.0) % Neut # (Auto) 5.1 (1.4-6.5) 10^3/uL Lymph # (Auto) 2.4 (1.2-3.8) 10^3/uL [place] # (Auto) 0.5 (0.3-0.8) 10^3/uL Eos # (Auto) 0.1 (0.0-0.7) 10^3/uL Baso # (Auto) 0.0 (0.0-0.1) 10^3/uL Abs Immat Gran (auto) 0.03 (0.00-0.03) 10^3/uL Imm/Tot Granulo (auto) 0.4 (0.0-0.5) % PT 11.0 (9.0-11.6) sec INR 1.04 Sodium 143 (136-145) mmol/L Potassium 4.5 (3.5-5.1) mmol/L Chloride 110 H (98-107) mmol/L Carbon Dioxide 22.7 (21.0-32.0) mmol/L Anion Gap 14.8 BUN 17.0 (7.0-18.0) mg/dL Creatinine 2.36 H (0.55-1.02) mg/dL Est GFR ( Amer) 24 L (>=60 mL/min/1.73m^2) Est GFR (Non-Af Amer) 20 L (>=60 mL/min/1.73m^2) BUN/Creatinine Ratio 7.2 Glucose 151 H (74-106) mg/dL Calcium 8.3 L (8.5-10.1) mg/dL Total Bilirubin 0.5 (0.2-1.0) mg/dL AST 14 L (15-37) U/L ALT 12 L (14-59) U/L Alkaline Phosphatase 124 H (46-116) U/L Troponin I High Sens <4.0 L (4.0-51.3) pg/mL NT-Pro-B Natriuret Pep 2945.0 H* (<=1800.0) pg/mL Total Protein 6.6 (6.4-8.2) g/dL Albumin 3.0 L (3.4-5.0) g/dL Globulin 3.6 g/dL Albumin/Globulin Ratio 0.8 Stool Occult Blood Negative Influenza Type A Ag Negative Influenza Type B Ag Negative SARS-CoV-2 Ag (CV2AG) Negative (NEGATIVE) ECG Data Attestation: I personally reviewed and interpreted this ECG as follows: Interpretation: EKG INTERPRETATION Time: [] 1734 Rate: [] 84 Rhythm: _ [] A-fib ST segments: _ [] No acute ST elevation or depression T waves: _ [] Ectopy: _ [] P wave/LA interval: _ [] QRS interval: _ [] QT interval: _ [] Comparison: _ [] Comparison EKG date: [] Performed by: [self] Discharge Plan Discharge Chief Complaint: Shortness of Breath/Dyspnea Time of Disposition Decision: 18:41 Prescriptions / Home Meds: No Action atorvastatin 40 mg tablet 40 mg PO .once a day carvedilol 12.5 mg tablet 12.5 mg PO Q12H Humulin N NPH Insulin KwikPen 100 unit/mL (3 mL) insulin pen 10 unit subcut BID cholecalciferol (vitamin D3) 25 mcg (1,000 unit) capsule 25 mcg PO BEDTIME omega 4-enz-rjv-fish oil [Fish Oil] 300-1,000 mg capsule 1 cap PO BID amlodipine 5 mg tablet 5 mg PO DAILY Slow-Mag 71.5 mg tablet,delayed release (DR/EC) 71.5 mg PO DAILY Eliquis 2.5 mg tablet 2.5 mg PO BID Qty: 60 0RF ferrous sulfate 325 mg (65 mg iron) tablet 325 mg PO DAILY Qty: 30 0RF docusate sodium [Colace] 100 mg capsule 100 mg PO DAILY Qty: 30 0RF acyclovir 400 mg tablet 400 mg PO BID escitalopram oxalate 10 mg tablet 10 mg PO DAILY omeprazole 20 mg capsule,delayed release(DR/EC) 20 mg PO DAILY Print Language: Palauan
[2024-11-21 18:09] LABS: Basophils Percent Auto 0.4 % (0.2-2.0); Eosinophils Absolute Auto 0.1 10^3/uL (0.0-0.7); Hematocrit 37.4 % (36.0-48.0); Hemoglobin 11.9 g/dL (12.0-16.0); Immature Granulocytes Abs Auto 0.03 10^3/uL (0.00-0.03); Immature Granulocytes Pct Auto 0.4 % (0.0-0.5); Lymphocytes Absolute Auto 2.4 10^3/uL (1.2-3.8); Lymphocytes Percent Auto 28.9 % (20.5-60.0); Mean Corpuscular HGB Conc 31.8 g/dL (29.9-35.2); Mean Corpuscular Hemoglobin 31.1 pg (26.7-34.0); Mean Corpuscular Volume 97.7 fL (81.0-99.0); Mean Platelet Volume 11.8 fL (9.5-13.5); Monocytes Absolute Auto 0.5 10^3/uL (0.3-0.8); Monocytes Percent Auto 6.2 % (1.7-12.0); Neutrophils Absolute Auto 5.1 10^3/uL (1.4-6.5); Neutrophils Percent Auto 63.1 % (43.0-75.0); Platelet Count 244 10^3/uL (150-450); Red Blood Count 3.83 10^6/uL (4.20-5.40); Red Cell Distribution Width 13.1 % (11.0-15.0); White Blood Count 8.1 10^3/uL (4.0-11.0)
[2024-11-21 18:09] LABS: Internal Control Within Normal Limits; Occult Blood Negative
[2024-11-21 18:22] LABS: INR 1.04
[2024-11-21 18:23] LABS: Anion Gap 14.8
[2024-11-21 18:29] LABS: Alanine Aminotransferase 12 U/L (14-59); Albumin Globulin Ratio 0.8; Alkaline Phosphatase 124 U/L (46-116); Aspartate Amino Transferase 14 U/L (15-37); BUN Creatinine Ratio 7.2; Bilirubin Total 0.5 mg/dL (0.2-1.0); Calcium 8.3 mg/dL (8.5-10.1); Carbon Dioxide 22.7 mmol/L (21.0-32.0); Chloride 110 mmol/L (98-107); Estimated GFR (African America 24 (>=60 mL/min/1.73m^2); Estimated GFR (Non-African Ame 20 (>=60 mL/min/1.73m^2); Globulin 3.6 g/dL; Glucose 151 mg/dL (74-106); Potassium 4.5 mmol/L (3.5-5.1); Sodium 143 mmol/L (136-145); Total Protein 6.6 g/dL (6.4-8.2); Troponin I High Sensitivity <4.0 pg/mL (4.0-51.3)
[2024-11-21] MEDS: 0.9 % SODIUM CHLORIDE 500 ML IV (18:31)
[2024-11-21 18:39] LABS: Influenza Virus A Antigen Negative; Influenza Virus B Antigen Negative; Internal Control Within Normal Limits; SARS-CoV-2 Ag NEGATIVE (NEGATIVE)
[2024-11-21] MEDS: FUROSEMIDE 40 MG/4 ML VIAL IVP (19:26)
[2024-11-21 20:31] LABS: Glucometer 119 mg/dL (74-106)
[2024-11-21] MEDS: CARVEDILOL 12.5 MG TABLET PO (22:18)
[2024-11-21] MEDS: ATORVASTATIN CALCIUM 40 MG TABLET PO (22:18)
[2024-11-21] MEDS: APIXABAN 5 MG TABLET 2.5 MG PO (22:18)
[2024-11-22] VITALS (18 sets, daily range): BP systolic 134–152; BP diastolic 73–88; PULSE 75–100; TEMP 36.4–36.9; O2SAT 91–97
[2024-11-22] MEDS: FUROSEMIDE 20 MG/2 ML VIAL IVP (05:43)
[2024-11-22 06:23] LABS: Basophils Percent Auto 0.3 % (0.2-2.0); Eosinophils Absolute Auto 0.1 10^3/uL (0.0-0.7); Eosinophils Percent Auto 1.2 % (0.9-7.0); Hematocrit 37.2 % (36.0-48.0); Hemoglobin 11.9 g/dL (12.0-16.0); Immature Granulocytes Abs Auto 0.02 10^3/uL (0.00-0.03); Immature Granulocytes Pct Auto 0.3 % (0.0-0.5); Lymphocytes Absolute Auto 2.3 10^3/uL (1.2-3.8); Mean Corpuscular Hemoglobin 31.1 pg (26.7-34.0); Mean Corpuscular Volume 97.1 fL (81.0-99.0); Monocytes Absolute Auto 0.6 10^3/uL (0.3-0.8); Neutrophils Absolute Auto 4.6 10^3/uL (1.4-6.5); Neutrophils Percent Auto 60.2 % (43.0-75.0); Platelet Count 231 10^3/uL (150-450); Red Blood Count 3.83 10^6/uL (4.20-5.40); Red Cell Distribution Width 13.1 % (11.0-15.0); White Blood Count 7.6 10^3/uL (4.0-11.0)
[2024-11-22 06:36] LABS: Magnesium 2.1 mg/dL (1.8-2.4)
[2024-11-22 06:39] LABS: Alanine Aminotransferase 11 U/L (14-59); Albumin Globulin Ratio 0.9; Albumin Level 3.1 g/dL (3.4-5.0); Alkaline Phosphatase 123 U/L (46-116); Anion Gap 15.3; Aspartate Amino Transferase 12 U/L (15-37); BUN Creatinine Ratio 7.6; Bilirubin Total 0.8 mg/dL (0.2-1.0); Calcium 8.6 mg/dL (8.5-10.1); Carbon Dioxide 24.5 mmol/L (21.0-32.0); Chloride 108 mmol/L (98-107); Estimated GFR (African America 24 (>=60 mL/min/1.73m^2); Estimated GFR (Non-African Ame 20 (>=60 mL/min/1.73m^2); Globulin 3.5 g/dL; Glucose 126 mg/dL (74-106); Potassium 3.8 mmol/L (3.5-5.1); Sodium 144 mmol/L (136-145); Total Protein 6.6 g/dL (6.4-8.2)
[2024-11-22 06:43] LABS: Troponin I High Sensitivity 6.6 pg/mL (4.0-51.3)
--- NOTE | 2024-11-22 07:38 | CA_ITS ---
Patient Name: MARTHA GOMEZ MR#: [id number] : 1940 Exam Date: 11/22/2024 Ordering Doctor: SHAIKH Luis Alberto MIX . ECHOCARDIOGRAM REPORT PROCEDURE: CA ECHO DOPPLER COMPLETE INDICATIONS: CHF COMPARISON: None. DESCRIPTION: COMPLETE ECHOCARDIOGRAM Real-time transthoracic echocardiography with 2D, M-mode, spectral and color flow Doppler performed. QUALITY: Technical quality was good. LEFT VENTRICLE: Normal chamber size. Thickened septal wall. LV EF: Global left ventricular systolic function is normal. Calculated left ventricular ejection fraction is 58%. No significant wall motion abnormalities. DIASTOLIC: Not adequately assessed due to heart rhythm. ATRIAL SEPTUM: Inadequately seen. LEFT ATRIUM: Normal chamber size. RIGHT ATRIUM: Normal chamber size. RIGHT VENTRICLE: Normal chamber size. Normal right ventricular systolic function. TRICUSPID VALVE: Normal mobility and thickness. No stenosis with mild regurgitation. No evidence of pulmonary hypertension. RVSP 28mmHg MITRAL VALVE: Normal mobility and thickness. No evidence of mitral valve stenosis. Mild mitral annular calcification. Mild to moderate mitral regurgitation. AORTIC VALVE: Normal trileaflet appearance. Moderately calcified aortic valve with diminished mobility. Doppler velocity suggests so significant aortic valve stenosis. Mild to moderate aortic regurgitation. AORTIC ROOT: Normal diameter and appearance. PULMONIC VALVE: Normal thickness and mobility. No stenosis. Trivial regurgitation. PERICARDIUM: No evidence of pericardial effusion. IVC: Collapses with inspirations. Normal size. CONCLUSION: 1. Global left ventricular systolic function is normal; visually estimated ejection fraction is 55 to 60% 2. The right ventricle is normal in size and systolic function 3. The left atrium is normal in size 4. Mild tricuspid regurgitation 5. Mild to moderate mitral regurgitation 6. Mild to moderate aortic valve regurgitation Adult Echocardiography Procedure Report Left Ventricle LVEDD (3.7 - 5.6 cm): 3.35 cm LVESD (2.2 - 4.0 cm): 2.46 cm LVIVS thickness (0.6 - 1.2 cm): 1.63 cm LVPW thickness (0.5 - 1.0 cm): 1.34 cm e': 0.08 m/s E - e': 5.88 LVOT Max Gradient: 1.84 mm[Hg] LVOT Area (cm2): 0.68 m/s Peak Velocity (LVOT): 0.68 m/s Mean Velocity (LVOT): 0.44 m/s LVOT Diameter 1.94 cm Left Ventricular Ejection Fraction: 58.23 % Left Atrium LA Volume Index (2D A2C): 33.16 ml/m2 Left Atrium Systolic Dimension: 2.89 cm Mitral Valve MV E to A Ratio: 0.00 Mitral Valve A-Wave Peak Velocity: 0.99 m/s Mitral Valve E-Wave Peak Velocity: 0.49 m/s Right Ventricle RV Internal Diastolic Dimension: 3.15 cm Aorta AO Root Diam: 3.41 cm Ascending Ao Diam: 2.52 cm Aortic Valve AoV Area ([place]): 1.19 cm2, 1.22 cm2 AoV Area (VTI): 1.28 cm2, 1.24 cm2 Deceleration [place]: 3.42 m/s2 Pressure Half-Time: 363.92 ms Peak Velocity(Antegrade Flow): 1.64 m/s, 1.71 m/s Peak Gradient(Antegrade Flow): 10.76 mm[Hg], 11.72 mm[Hg] Mean Velocity(Antegrade Flow): 1.20 m/s, 1.21 m/s Mean Gradient(Antegrade Flow): 6.47 mm[Hg], 6.63 mm[Hg] Velocity Time Integral: 37.65 cm, 34.80 cm Tricuspid Valve Peak Velocity (Regurgitant Flow): 2.45 m/s, 2.20 m/s, 2.50 m/s Pulmonic Valve Mean Gradient: 1.70 mm[Hg], 1.48 mm[Hg], 1.59 mm[Hg] Mean Velocity: 0.61 m/s, 0.57 m/s, 0.59 m/s Peak Velocity: 0.89 m/s Peak Gradient: 3.27 mm[Hg], 2.82 mm[Hg], 3.48 mm[Hg] Right Atrium Right Atrium Systolic Pressure: 65.13 ml, 65.13 ml Dictated by: Candi Persaud M.D. on 11/23/2024 at 15:14 Approved by: Candi Persaud M.D. on 11/23/2024 at 15:21
[2024-11-22] MEDS: APIXABAN 5 MG TABLET 2.5 MG PO ×2 (09:42→21:23)
[2024-11-22] MEDS: CARVEDILOL 12.5 MG TABLET PO ×2 (09:42→21:23)
[2024-11-22] MEDS: FERROUS SULFATE 325 MG TABLET PO (09:43)
[2024-11-22] MEDS: AMLODIPINE BESYLATE 5 MG TABLET PO (09:43)
[2024-11-22] MEDS: OMEPRAZOLE 20 MG CAPSULE.DR PO (09:43)
[2024-11-22] MEDS: FUROSEMIDE 40 MG/4 ML VIAL IVP (10:26)
--- NOTE | 2024-11-22 10:47 | PM.HP ---
HPI H&P: HPI History of Present Illness Chief complaint: CHF A-FIB SOC Narrative: 84-year-old female who lives at home presented to ER with 1 week history of dry cough and worsening shortness of breath. She reports his nephew visited him she found out later on that he had been diagnosed with a viral illness. Upon arrival in ER, patient was noted to have considerable dyspnea and was struggling to breathe. Workup in ER revealed elevated BNP and possible volume overload for which she was admitted for observation and started on IV Lasix. I saw her earlier today and she reported feeling overall better but was still experiencing dyspnea on exertion. I also noticed that she was experiencing a dry cough. She denies fever, chills. She does have history of A-fib and CKD stage IV along with hypertension but no known history of heart failure. Her most recent hospital admission was in October last year for syncope secondary to acute blood loss anemia. Opioid HPI Opioid Management Most Recent Pain and Opioid Data: Last Pain Scale 0 10/14/24 09:28 10/14/24 Last Pain Assessment 11/22/24 10:00 Last ORT Total Score 0 11/21/24 19:53 11/21/24 Last ORT Risk Category Low Risk 11/21/24 19:53 11/21/24 Review of Systems ROS Status of ROS 10 or more systems reviewed and unremarkable except as noted in history and below [facility] Medical History (Updated 11/22/24 @ 10:51 by Shaikh Kim MD) Gastrointestinal hemorrhage with melena ?K92.1 - Melena (ICD-10) Upper gastrointestinal bleed ?K92.2 - Gastrointestinal hemorrhage, unspecified (ICD-10) Syncope and collapse ?R55 - Syncope and collapse (ICD-10) GI bleeding ?K92.2 - Gastrointestinal hemorrhage, unspecified (ICD-10) HLD (hyperlipidemia) ?E78.5 - Hyperlipidemia, unspecified (ICD-10) H/O: CVA (cerebrovascular accident) ?Z86.73 - Personal history of transient ischemic attack (TIA), and cerebral infarction without residual deficits (ICD-10) Type 2 diabetes mellitus ?E11.9 - Type 2 diabetes mellitus without complications (ICD-10) Cerebrovascular disease ?I67.9 - Cerebrovascular disease, unspecified (ICD-10) Paroxysmal atrial fibrillation ?I48.0 - Paroxysmal atrial fibrillation (ICD-10) CKD (chronic kidney disease) stage 4, GFR 15-29 ml/min ?N18.4 - Chronic kidney disease, stage 4 (severe) (ICD-10) Type 2 diabetes mellitus with hyperglycemia ?E11.65 - Type 2 diabetes mellitus with hyperglycemia (ICD-10) Hypertension ?I10 - Essential (primary) hypertension (ICD-10) Cataract ?H26.9 - Unspecified cataract (ICD-10) Multiple myeloma ?C90.00 - Multiple myeloma not having achieved remission (ICD-10) Stroke ?I63.9 - Cerebral infarction, unspecified (ICD-10) Osteoarthritis of left knee ?M17.12 - Unilateral primary osteoarthritis, left knee (ICD-10) Hypertension ?I10 - Essential (primary) hypertension (ICD-10) Surgical History Hx of cholecystectomy ?Z90.49 - Acquired absence of other specified parts of digestive tract (ICD-10) History of hysterectomy ?Z90.710 - Acquired absence of both cervix and uterus (ICD-10) Family History Mother Family history of CHF (congestive heart failure) Family history of diabetes mellitus Family history of stroke Sister Family history of CHF (congestive heart failure) Family history of diabetes mellitus Family history of hypertension Grandmother Family history of cancer Family history of diabetes mellitus Brother No problems noted. Father No problems noted. Social History Within the past year, how often did you have a drink containing alcohol: never Score interpretation: A score less than 3 is consistent with normal alcohol consumption. 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 Highest level of school completed/degree received: some college, no degree Are you now , , , , never or living with a partner: Little interest or pleasure in doing things: not at all Feeling down, depressed, or hopeless: not at all Feel stressed/tense/nervous/anxious/difficulty sleeping: not at all Do you think of yourself as: straight/heterosexual Gender Identity: female Meds Home Medications and Allergies Home Medications ?Medication ?Instructions ?Recorded ?Confirmed ?Type atorvastatin 40 mg tablet 40 mg PO .once a day 04/19/23 11/21/24 History carvedilol 12.5 mg tablet 12.5 mg PO Q12H 04/19/23 11/21/24 History cholecalciferol (vitamin D3) 25 25 mcg PO BEDTIME 06/19/23 11/21/24 History mcg (1,000 unit) capsule insulin NPH isoph U-100 human 100 10 unit subcut BID 06/19/23 11/21/24 History unit/mL (3 mL) subcutaneous pen (Humulin N NPH U-100 Insulin KwikPen) omega 0-daz-rlk-fish oil 300 1 cap PO BID 06/19/23 11/21/24 History mg-1,000 mg capsule (Fish Oil) amlodipine 5 mg tablet 5 mg PO DAILY 10/10/24 11/21/24 History magnesium chloride 71.5 mg 71.5 mg PO DAILY 10/10/24 11/21/24 History (magnesium chloride) tablet,delayed release (Slow-Mag) apixaban 2.5 mg tablet (Eliquis) 2.5 mg PO BID #60 tabs 10/14/24 11/21/24 Rx docusate sodium 100 mg capsule 100 mg PO DAILY #30 caps 10/14/24 11/21/24 Rx (Colace) ferrous sulfate 325 mg (65 mg 325 mg PO DAILY #30 tabs 10/14/24 11/21/24 Rx iron) tablet acyclovir 400 mg tablet 400 mg PO BID 11/21/24 11/21/24 History escitalopram oxalate 10 mg tablet 10 mg PO DAILY 11/21/24 11/21/24 History omeprazole 20 mg capsule,delayed 20 mg PO DAILY 11/21/24 11/21/24 History release Allergies Allergy/AdvReac Type Severity Reaction Status Date / Time lenalidomide (From Revlimid) Allergy Rash Verified 09/14/24 14:11 pregabalin (From Lyrica) Allergy Rash Verified 09/14/24 14:11 oxybutynin AdvReac Mild Rash Verified 09/14/24 14:11 Exam Constitutional Vital Signs, click to edit/add: Last Vital Signs Temp 97.6 F 11/22/24 03:56 Pulse 88 11/22/24 09:59 Resp 19 11/22/24 03:56 BP 152/88 H 11/22/24 03:56 Pulse Ox 91 L 11/22/24 03:56 O2 Del Method Room Air 11/22/24 03:56 Documenting provider has reviewed patient's vital signs: yes Common normals: no apparent distress and oriented x3 General appearance: cooperative Eye Common normals: conjunctivae normal and no scleral icterus Conjunctiva: conjunctiva(e) normal Respiratory Common normals: normal respiratory effort and no use of accessory muscles Effort & inspection: able to speak in complete sentences and actively coughing Auscultation: wheezes Cardio Common normals: regular rate, S1 normal heart sound and S2 normal heart sound Rate: regular rate Heart sounds: S1 normal and S2 normal GI Common normals: Normal to inspection, nondistended, normoactive bowel sounds present, soft to palpation, non-tender and no hepatosplenomegaly Palpation: soft and no hepatosplenomegaly Extremity Common normals: no clubbing, cyanosis or edema Neuro Common normals: oriented x3, moves all extremities and no focal motor deficits Psych Common normals: mental status grossly normal, denies hallucinations, denies homicidal ideation and denies suicidal ideation Results Labs Labs: Short CBC 11/21/24 11/22/24 Range/Units 17:36 05:33 WBC 8.1 7.6 (4.0-11.0) 10^3/uL Hgb 11.9 L 11.9 L (12.0-16.0) g/dL Hct 37.4 37.2 (36.0-48.0) % Plt Count 244 231 (150-450) 10^3/uL BMP 11/21/24 11/22/24 17:36 05:33 Sodium 143 144 Potassium 4.5 3.8 Chloride 110 H 108 H Carbon Dioxide 22.7 24.5 BUN 17.0 18.0 Creatinine 2.36 H 2.36 H Glucose 151 H 126 H Calcium 8.3 L 8.6 Liver Function 11/21/24 11/22/24 Range/Units 17:36 05:33 Total Bilirubin 0.5 0.8 (0.2-1.0) mg/dL AST 14 L 12 L (15-37) U/L ALT 12 L 11 L (14-59) U/L Alkaline Phosphatase 124 H 123 H (46-116) U/L Albumin 3.0 L 3.1 L (3.4-5.0) g/dL Assessment and Plan Assessment and Plan (1) Acute on chronic diastolic (congestive) heart failure: Assessment and Plan: Suspected diastolic dysfunction given her history. Continue with IV Lasix 40 twice daily. Monitor intake and output. Daily weights. Echocardiogram ordered to assess cardiac structure. (2) Viral URI with cough: Assessment and Plan: Tested negative for influenza and COVID. Suspect viral illness resulting in respiratory symptoms that also caused fluid overload. I will start her on DuoNebs as she is wheezing on exam. (3) Type 2 diabetes mellitus: Assessment and Plan: Blood glucose are at goal. Continue with home insulin. Qualifiers: Diabetes mellitus group home insulin use: with manager long term care use Diabetes mellitus complication status: with kidney complications Diabetes mellitus complication detail: with chronic kidney disease Chronic kidney disease stage: stage 4 (GFR 15-29) Qualified Code(s): E11.22 - Type 2 diabetes mellitus with diabetic chronic kidney disease; N18.4 - Chronic kidney disease, stage 4 (severe); Z79.4 - residential (current) use of insulin (4) H/O: CVA (cerebrovascular accident): Assessment and Plan: At her baseline. Monitor. (5) Paroxysmal atrial fibrillation: Assessment and Plan: Rate controlled A-fib. On Eliquis for anticoagulation (6) CKD (chronic kidney disease) stage 4, GFR 15-29 ml/min: Assessment and Plan: Renal function is stable. Monitor creatinine. (7) Hypertension: Assessment and Plan: Blood pressure stable and at goal. Continue with home medications. Qualifiers: Hypertension type: primary hypertension Qualified Code(s): I10 - Essential (primary) hypertension
--- NOTE | 2024-11-22 11:13 | CM.NOTE ---
Rounds made with Dr. Alvarez. Plan of care reviewed by Dr. Alvarez. Echocardiogram ordered.
[2024-11-22] MEDS: IPRATROPIUM/ALBUTEROL SULFATE 3 ML AMPUL.NEB IH ×3 (11:48→20:02)
--- NOTE | 2024-11-22 12:50 | SWNOTE1 ---
Medicare Outpatient Observation Notice reviewed and discussed with patient. Pt. verbalized understanding and signed the form. Original given to patient and copy placed in patient?s chart.
--- NOTE | 2024-11-22 12:50 | SWNOTE1 ---
REBECCA met with pt to discuss dc needs. Pt lives at home with her . Pt voiced she does everything at home. She uses a rollator at home. Pt's 2 sons and daughter live within miles and check on them nearly daily. Pt voiced that she does have [facility] home health coming in. Physical therapy and Occupational therapy coming in at home. At this time pt has no concerns about discharge. SW to call [facility]. REBECCA called [facility] and pt is current with them.
--- NOTE | 2024-11-22 13:39 | SWNOTE1 ---
REBECCA faxed ED note and H&P to [facility].
[2024-11-22 21:11] LABS: Glucometer 154 mg/dL (74-106)
[2024-11-22] MEDS: ATORVASTATIN CALCIUM 40 MG TABLET PO (21:23)
[2024-11-22] MEDS: CEFUROXIME AXETIL 250 MG TABLET PO (21:23)
[2024-11-22] MEDS: FUROSEMIDE 20 MG/2 ML VIAL 40 MG IVP (21:24)
[2024-11-23] VITALS (22 sets, daily range): BP systolic 104–136; BP diastolic 66–78; PULSE 75–111; TEMP 36.5–36.7; O2SAT 92–97
[2024-11-23] MEDS: IPRATROPIUM/ALBUTEROL SULFATE 3 ML AMPUL.NEB IH ×2 (04:05→10:50)
[2024-11-23 07:32] LABS: Glucometer 140 mg/dL (74-106)
[2024-11-23] MEDS: CARVEDILOL 12.5 MG TABLET PO ×2 (08:26→21:14)
[2024-11-23] MEDS: OMEPRAZOLE 20 MG CAPSULE.DR PO (08:26)
[2024-11-23] MEDS: CEFUROXIME AXETIL 250 MG TABLET PO ×2 (08:26→21:15)
[2024-11-23] MEDS: FERROUS SULFATE 325 MG TABLET PO (08:27)
[2024-11-23] MEDS: ESCITALOPRAM 10 MG TABLET PO (08:27)
[2024-11-23] MEDS: APIXABAN 5 MG TABLET 2.5 MG PO ×2 (08:27→21:15)
[2024-11-23] MEDS: AMLODIPINE BESYLATE 5 MG TABLET PO (08:27)
[2024-11-23] MEDS: INSULIN NPH HUMAN ISOPHANE 100 UNIT/ML 10ML MDV 10 UNIT SQ ×2 (09:21→21:36)
[2024-11-23] MEDS: FUROSEMIDE 20 MG/2 ML VIAL 40 MG IVP (09:22)
--- NOTE | 2024-11-23 10:21 | CM.NOTE ---
Rounds made with Dr. Alvarez, pt will discharge to home with [facility]. Pt denies any other discharge needs. Pt with f/u with PCP in one week.
[2024-11-23 10:52] LABS: Basophils Percent Auto 0.3 % (0.2-2.0); Eosinophils Absolute Auto 0.1 10^3/uL (0.0-0.7); Eosinophils Percent Auto 0.9 % (0.9-7.0); Hematocrit 38.8 % (36.0-48.0); Hemoglobin 12.5 g/dL (12.0-16.0); Immature Granulocytes Abs Auto 0.01 10^3/uL (0.00-0.03); Immature Granulocytes Pct Auto 0.1 % (0.0-0.5); Lymphocytes Percent Auto 26.6 % (20.5-60.0); Mean Corpuscular HGB Conc 32.2 g/dL (29.9-35.2); Mean Corpuscular Hemoglobin 31.2 pg (26.7-34.0); Mean Corpuscular Volume 96.8 fL (81.0-99.0); Mean Platelet Volume 11.4 fL (9.5-13.5); Monocytes Absolute Auto 0.5 10^3/uL (0.3-0.8); Neutrophils Percent Auto 65.1 % (43.0-75.0); Platelet Count 257 10^3/uL (150-450); Red Blood Count 4.01 10^6/uL (4.20-5.40); Red Cell Distribution Width 13.1 % (11.0-15.0); White Blood Count 7.6 10^3/uL (4.0-11.0)
--- NOTE | 2024-11-23 11:21 | PT.DAILY ---
Physical Therapy Daily Note PT Daily Note/Assess Start: 11/23/24 10:47 Freq: Status: Active Protocol: Document 11/23/24 10:53 MARIELENA (Rec: 11/23/24 11:21 MARIELENA [id number]) Physical Therapy Daily Note/Assessment Time In/Time Out Time In 10:04 Time Out 10:20 Pain In Pain N/A Pain Out Pain N/A Subjective Subjective Pt supine upon arrival. Agrees to PT and to get up in BS chair. Therapeutic Exercise Time Therapeutic Exercise 6 Minutes (minutes) Therapeutic Exercise 0 Units Therapeutic Exercise Treatment Therapeutic Exercise Pt instructed to complete bilat LE strengthening ex Treatment while sitting unsupported at EOB. Therapeutic Activity Time Therapeutic Activity 8 Minutes (minutes) Therapeutic Activity 1 Units Therapeutic Activity Treatment Bed Mobility Ability Minimum Assist Chair Transfer Contact Guard Assist Ability Therapeutic Activity Supine>sit Olinda to advance upper body to sit at EOB. Pt Comments requires increased time to perform bed mobility. Pt sits EOB unsupported without LOB. pt sit>stand CGA for safety. Amb 50' with RW, CGA. Short step length/slow isauro noticed. Pt takes occ standing rest breaks. Remains in BS chair upon completion. Very fatigued from short amb distance - difficulty keeping eyes open. Remains in BS chair with call light within reach and needs met. Total Physical Therapy Time Total Therapy 14 Minutes Total Physical 1 Therapy Units Summary Daily Note Summary Easily fatigued with transfer and gait. Would benefit from PT to help regain strength and endurance to return to PLOF.
[2024-11-23 11:34] LABS: Anion Gap 15.2; BUN Creatinine Ratio 8.3; Calcium 8.5 mg/dL (8.5-10.1); Carbon Dioxide 25.4 mmol/L (21.0-32.0); Chloride 102 mmol/L (98-107); Estimated GFR (African America 17 (>=60 mL/min/1.73m^2); Estimated GFR (Non-African Ame 14 (>=60 mL/min/1.73m^2); Glucose 235 mg/dL (74-106); Potassium 3.6 mmol/L (3.5-5.1); Sodium 139 mmol/L (136-145)
--- NOTE | 2024-11-23 13:09 | P.IMPN_ITS ---
Progress Note: A&P Assessment and Plan (1) Acute on chronic diastolic (congestive) heart failure: Assessment and Plan: Stop IV lasix. Likely got over diuresis. Appear dry even though BNP is still elevated but this could be due to MARIAMA on CKD too ECHO result still pending. (2) MARIAMA (acute kidney injury): Assessment and Plan: baseline Cr 2.3, worsened and today its 3.1 Likely due to overdiuresis. 500 IVF bolus ordered and start on gentle IV hydration F/u BMP, monitor UO, serum Cr (3) Viral URI with cough: Assessment and Plan: Wheezing resolved. Cough is better C/w albuterol as needed. Negative influenza,covid. Empirical Ceftin for presumed superimposed bacterial URI. (4) Type 2 diabetes mellitus: Assessment and Plan: FSBS at goal. 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 (7) CKD (chronic kidney disease) stage 4, GFR 15-29 ml/min: Assessment and Plan: Due to HTN, T2 DM. Now has MARIAMA (8) Hypertension: Assessment and Plan: Stable BP. C/w home medications Qualifiers: Hypertension type: primary hypertension Qualified Code(s): I10 - Essential (primary) hypertension Plan Patient clinically worse. Feels lethargic, tired and overall very weak. Has developed MARIAMA now with Cr upto 3.1 Change to inpatient status as patient's clinical condition considerably worse despite initial period of observation and treatment in the hospital Internal Medicine - PN: Subj Subjective Interval history: Seen and examined today. Feels very tired, exhausted and has little to no energy. Morning labs revealed persistently elevated BNP and patient now has MARIAMA with Cr upto 3.1 Exam Constitutional Vital Signs, click to edit/add: Last Vital Signs Temp 98.0 F 11/23/24 11:39 Pulse 92 H 11/23/24 11:59 Resp 18 11/23/24 11:39 BP 104/69 11/23/24 11:39 Pulse Ox 94 L 11/23/24 11:39 O2 Del Method Room Air 11/23/24 11:39 Documenting provider has reviewed patient's vital signs: yes Common normals: oriented x3 General appearance: cooperative, lethargic, ill appearing and frail appearing Respiratory Common normals: normal respiratory effort, no use of accessory muscles and clear to auscultation bilaterally Effort & inspection: able to speak in complete sentences Auscultation: diminished lung sounds Cardio Common normals: regular rate, S1 normal heart sound and S2 normal heart sound Rate: regular rate Heart sounds: S1 normal and S2 normal Extremity Common normals: no clubbing, cyanosis or edema Neuro Common normals: oriented x3, moves all extremities and no focal motor deficits Sensorium/orientation: lethargic Psych Common normals: mental status grossly normal, denies hallucinations, denies homicidal ideation and denies suicidal ideation Internal Medicine - PN: Obj Da Labs Labs: Laboratory Results - last 24 hr 11/22/24 11/23/24 11/23/24 21:11 07:30 10:39 WBC 7.6 RBC 4.01 L Hgb 12.5 Hct 38.8 MCV 96.8 MCH 31.2 MCHC 32.2 RDW 13.1 Plt Count 257 MPV 11.4 Neut % (Auto) 65.1 Lymph % (Auto) 26.6 [place] % (Auto) 7.0 Eos % (Auto) 0.9 Baso % (Auto) 0.3 Neut # (Auto) 5.0 Lymph # (Auto) 2.0 [place] # (Auto) 0.5 Eos # (Auto) 0.1 Baso # (Auto) 0.0 Abs Immat Gran (auto) 0.01 Imm/Tot Granulo (auto) 0.1 Sodium 139 Potassium 3.6 Chloride 102 Carbon Dioxide 25.4 Anion Gap 15.2 BUN 26.0 H Creatinine 3.14 H Est GFR ( Amer) 17 L Est GFR (Non-Af Amer) 14 L BUN/Creatinine Ratio 8.3 Glucose 235 H Calcium 8.5 NT-Pro-B Natriuret Pep 2855.0 H* POC Glucose 154 H 140 H
[2024-11-23] MEDS: ACETAMINOPHEN 325 MG TABLET 650 MG PO (13:28)
[2024-11-23] MEDS: 0.9 % SODIUM CHLORIDE 500 ML IV (13:28)
[2024-11-23] MEDS: 0.9 % SODIUM CHLORIDE 1,000 ML 100 ML IV (14:28)
--- NOTE | 2024-11-23 14:50 | SWNOTE1 ---
SW sent inpt order, progress note from today, and PT notes to [facility]. No discharge today.
[2024-11-23] MEDS: CALCIUM CARBONATE 500 MG (200MG ELEMENTAL) TAB CHEW PO (21:13)
[2024-11-23] MEDS: ATORVASTATIN CALCIUM 40 MG TABLET PO (21:14)
[2024-11-23 21:22] LABS: Glucometer 130 mg/dL (74-106)
[2024-11-24] VITALS (9 sets, daily range): BP systolic 124–148; BP diastolic 77–81; PULSE 82–97; TEMP 36.7; O2SAT 93
[2024-11-24] MEDS: 0.9 % SODIUM CHLORIDE 1,000 ML 100 ML IV (00:17)
[2024-11-24 06:14] LABS: Basophils Percent Auto 0.3 % (0.2-2.0); Eosinophils Absolute Auto 0.2 10^3/uL (0.0-0.7); Eosinophils Percent Auto 2.5 % (0.9-7.0); Hematocrit 35.3 % (36.0-48.0); Hemoglobin 11.3 g/dL (12.0-16.0); Immature Granulocytes Abs Auto 0.02 10^3/uL (0.00-0.03); Immature Granulocytes Pct Auto 0.3 % (0.0-0.5); Lymphocytes Absolute Auto 1.4 10^3/uL (1.2-3.8); Lymphocytes Percent Auto 19.4 % (20.5-60.0); Mean Corpuscular Hemoglobin 30.9 pg (26.7-34.0); Mean Corpuscular Volume 96.4 fL (81.0-99.0); Mean Platelet Volume 11.7 fL (9.5-13.5); Monocytes Absolute Auto 0.6 10^3/uL (0.3-0.8); Monocytes Percent Auto 7.9 % (1.7-12.0); Neutrophils Percent Auto 69.6 % (43.0-75.0); Platelet Count 202 10^3/uL (150-450); Red Blood Count 3.66 10^6/uL (4.20-5.40); Red Cell Distribution Width 12.9 % (11.0-15.0); White Blood Count 7.2 10^3/uL (4.0-11.0)
[2024-11-24 06:53] LABS: Alanine Aminotransferase 10 U/L (14-59); Alkaline Phosphatase 101 U/L (46-116); Anion Gap 12.6; Aspartate Amino Transferase 12 U/L (15-37); BUN Creatinine Ratio 8.3; Bilirubin Total 0.5 mg/dL (0.2-1.0); Calcium 7.9 mg/dL (8.5-10.1); Carbon Dioxide 24.7 mmol/L (21.0-32.0); Chloride 107 mmol/L (98-107); Estimated GFR (African America 20 (>=60 mL/min/1.73m^2); Estimated GFR (Non-African Ame 16 (>=60 mL/min/1.73m^2); Glucose 137 mg/dL (74-106); Potassium 3.3 mmol/L (3.5-5.1); Sodium 141 mmol/L (136-145); Total Protein 6.1 g/dL (6.4-8.2)
--- NOTE | 2024-11-24 07:58 | PM.DS1 ---
DS: Providers Provider Date of admission: 11/21/24 19:41 Primary care physician: Karie Mcfadden MD Attending physician on admission: Shaikh Kim Consults: 11/22/24 Physical Therapy Eval and Treat Routine Reason for consultation: weakness Has provider been notified: Yes Discharging clinician: Henny Baltazar DS: Diagnosis Discharge Diagnosis (1) Acute on chronic diastolic (congestive) heart failure: (2) MARIAMA (acute kidney injury): (3) Viral URI with cough: (4) Type 2 diabetes mellitus: Qualifiers: Chronic kidney disease stage: stage 4 (GFR 15-29) Diabetes mellitus complication detail: with chronic kidney disease Diabetes mellitus complication status: with kidney complications 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 Qualified Code(s): E11.22 - Type 2 diabetes mellitus with diabetic chronic kidney disease; N18.4 - Chronic kidney disease, stage 4 (severe); 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 Patient was found to have acute on chronic diastolic heart failure and was treated with IV Lasix 40 twice daily. Monitor intake and output. Daily weights. Echocardiogram showed EF 55-60%, no valve abnormalities. Tested negative for influenza and COVID. Suspect viral illness but was treated with Ceftin 250mg BID and will continue this outpatient for 7 more days. I have also sent in Tessalon Perl. chest Xray did not show any acute pneumonia. Patient had increase in Creatinine from diuresis. Cr up to 3.14 and was started on IVF. At the time of discharge her Creatinine was 2.77. Her symptoms have overall improved. She is saturating well on room air. She will resume home health at discharge and all her home medications. She has close outpatient follow up. She will be discharged home today in stable condition. She is to return to the ER with any worsening of symptoms. Status at Discharge Functional status at discharge: independent ambulation Overall status at discharge: patient is back to baseline Time Spent with Patient Time attestation: Total time spent providing and/or coordinating discharge services: Time spent: greater than 30 minutes Exam Narrative Exam Narrative: General: Patient is alert, and oriented to person, place and time with normal affect, proper hygiene Skin: no visible rashes, or ulcers Head: atraumatic, acephalic Eyes: PERRLA, no nystagmus present, conjunctiva clear, no scleral icterus Ears:normal gross auditory acuity Heart: Normal rate and rhythm, no murmurs/rubs/gallops Lungs: no audible wheezes, crackles and normal breath sounds all lung chappell Abdomen: Normal audible bowel sounds, no distension, No palpable masses, no organomegaly, no rebound/guarding/ or rigidity Musculoskeletal: no swelling bilateral lower extremities Neuro: CN II-X grossly intact Constitutional Vital Signs, click to edit/add: Last Vital Signs Temp 98.1 F 11/24/24 07:49 Pulse 86 11/24/24 07:49 Resp 16 11/24/24 07:49 BP 148/81 H 11/24/24 07:49 Pulse Ox 93 L 11/24/24 07:49 O2 Del Method Room Air 11/24/24 07:49 DS: Data Data Completed and Pending Labs on day of discharge: Labs from last 24 hours 11/24/24 11/23/24 11/23/24 05:36 21:20 10:39 WBC 7.2 7.6 RBC 3.66 L 4.01 L Hgb 11.3 L 12.5 Hct 35.3 L 38.8 MCV 96.4 96.8 MCH 30.9 31.2 MCHC 32.0 32.2 RDW 12.9 13.1 Plt Count 202 257 MPV 11.7 11.4 Neut % (Auto) 69.6 65.1 Lymph % (Auto) 19.4 L 26.6 [place] % (Auto) 7.9 7.0 Eos % (Auto) 2.5 0.9 Baso % (Auto) 0.3 0.3 Neut # (Auto) 5.0 5.0 Lymph # (Auto) 1.4 2.0 [place] # (Auto) 0.6 0.5 Eos # (Auto) 0.2 0.1 Baso # (Auto) 0.0 0.0 Abs Immat Gran (auto) 0.02 0.01 Imm/Tot Granulo (auto) 0.3 0.1 Sodium 141 139 Potassium 3.3 L 3.6 Chloride 107 102 Carbon Dioxide 24.7 25.4 Anion Gap 12.6 15.2 BUN 23.0 H 26.0 H Creatinine 2.77 H 3.14 H Est GFR ( Amer) 20 L 17 L Est GFR (Non-Af Amer) 16 L 14 L BUN/Creatinine Ratio 8.3 8.3 Glucose 137 H 235 H Calcium 7.9 L 8.5 Total Bilirubin 0.5 AST 12 L ALT 10 L Alkaline Phosphatase 101 NT-Pro-B Natriuret Pep 2855.0 H* Total Protein 6.1 L POC Glucose 130 H Discharge Plan Discharge Disposition: Home Health Service Condition: Fair Discharge Medications: New cefuroxime axetil 250 mg Tablet 250 mg PO BID 7 Days Qty: 14 0RF benzonatate 100 mg Capsule 100 mg PO Q8H PRN (Reason: Cough) 7 Days Qty: 21 0RF Continued atorvastatin 40 mg tablet 40 mg PO .once a day carvedilol 12.5 mg tablet 12.5 mg PO Q12H Humulin N NPH Insulin KwikPen 100 unit/mL (3 mL) insulin pen 10 unit subcut BID cholecalciferol (vitamin D3) 25 mcg (1,000 unit) capsule 25 mcg PO BEDTIME omega 3-idv-xbx-fish oil [Fish Oil] 300-1,000 mg capsule 1 cap PO BID amlodipine 5 mg tablet 5 mg PO DAILY Slow-Mag 71.5 mg tablet,delayed release (DR/EC) 71.5 mg PO DAILY Eliquis 2.5 mg tablet 2.5 mg PO BID Qty: 60 0RF ferrous sulfate 325 mg (65 mg iron) tablet 325 mg PO DAILY Qty: 30 0RF docusate sodium [Colace] 100 mg capsule 100 mg PO DAILY Qty: 30 0RF acyclovir 400 mg tablet 400 mg PO BID PRN (Reason: OUTBREAKS) escitalopram oxalate 10 mg tablet 10 mg PO DAILY omeprazole 20 mg capsule,delayed release(DR/EC) 20 mg PO DAILY Activity: increase activity as tolerated Diet: advance to your usual diet Diet Detail: 2 liter fluid restriction and no added salt Print Language: Syriac Patient Instructions: Cefuroxime (By mouth), Benzonatate (By mouth), Heart Failure (GEN) 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 Mcfadden [phone] Discharge location: Home with home health
[2024-11-24] MEDS: FERROUS SULFATE 325 MG TABLET PO (08:09)
[2024-11-24] MEDS: OMEPRAZOLE 20 MG CAPSULE.DR PO (08:09)
[2024-11-24] MEDS: CEFUROXIME AXETIL 250 MG TABLET PO (08:09)
[2024-11-24] MEDS: ESCITALOPRAM 10 MG TABLET PO (08:09)
[2024-11-24] MEDS: APIXABAN 5 MG TABLET 2.5 MG PO (08:09)
[2024-11-24] MEDS: AMLODIPINE BESYLATE 5 MG TABLET PO (08:09)
[2024-11-24] MEDS: CARVEDILOL 12.5 MG TABLET PO (08:10)
[2024-11-24] MEDS: INSULIN NPH HUMAN ISOPHANE 100 UNIT/ML 10ML MDV 10 UNIT SQ (08:11)
[2024-11-24] MEDS: POTASSIUM CHLORIDE 10 MEQ ER TABLET 20 MEQ PO (08:58)
--- NOTE | 2024-11-24 09:04 | PT.DAILY ---
Physical Therapy Daily Note PT Daily Note/Assess Start: 11/23/24 10:47 Freq: Status: Active Protocol: Document 11/24/24 08:57 [email or web address] (Rec: 11/24/24 09:04 MARIELENA [id number]) Physical Therapy Daily Note/Assessment Time In/Time Out Time In 08:34 Time Out 08:45 Pain In Pain N/A Pain Out Pain N/A Subjective Subjective Pt supine upon arrival. Reports dc later today. Feeling much better. Agreeable to PT. Therapeutic Exercise Time Therapeutic Exercise 4 Minutes (minutes) Therapeutic Exercise 0 Units Therapeutic Exercise Treatment Therapeutic Exercise Pt instructed to complete bilat LE strengthening ex Treatment while sitting unsupported at EOB to improve functional mobility prior to gait/transfers. Therapeutic Activity Time Therapeutic Activity 6 Minutes (minutes) Therapeutic Activity 1 Units Therapeutic Activity Treatment Bed Mobility Ability Standby Assistance Chair Transfer Standby Assistance Ability Therapeutic Activity Supine>sit SBA with increased time needed to advance Comments LEs off EOB. Sits EOB unsupported for LE strengthening ex without LOB. Sit>stand SBA 80' with RW. Takes 1x seated rest break on couch in room. Sit>stand from low couch SBA with increased time needed. Pt amb another 80 ' with RW, SBA. Pt returned to sitting on couch with call light within reach and needs met. Total Physical Therapy Time Total Therapy 10 Minutes Total Physical 1 Therapy Units Summary Daily Note Summary Improved gait endurance/ability today. Needs increased time with transfers but does not require outside assistance.
[2024-11-24 09:56] LABS: Globulin 3.1 g/dL
--- NOTE | 2024-11-26 14:27 | CM.DCFOLLOWU ---
Person spoke with: Hailee How are you feeling? Very sleepy How is your pain? No pain Did you understand your discharge instructions? Yes Do you have any questions about your discharge instructions? No Were you given any prescriptions at discharge? Yes Were you able to get your prescriptions filled? Yes Do you understand how to take your medications as ordered? Yes Do you have any questions about your follow up appointment and do you plan to keep your follow up appointment? I see Dr. Mcfadden on Wed Is there anything else that you would like to discuss? No Questions/Comments/Concerns/Other:
== END 2024-11-24 13:41 | disposition home health service (06) | DRG 291 ==
LOC: ER 18:59 → MS 11-24 10:01
PROVIDERS: Internal Medicine; Registered Nurse; Admitting Provider Family Medicine; Emergency Provider Emergency Medicine; PCP Family Medicine; Visit Provider Family Medicine
DX: I13.0 Hypertensive heart and chronic kidney disease with heart failure and stage 1 through stage 4 chronic kidney disease, or unspecified chronic kidney disease (principal); I50.33 Acute on chronic diastolic (congestive) heart failure; N17.9 Acute kidney failure, unspecified; E11.22 Type 2 diabetes mellitus with diabetic chronic kidney disease; N18.4 Chronic kidney disease, stage 4 (severe); I48.0 Paroxysmal atrial fibrillation; J06.9 Acute upper respiratory infection, unspecified; R05.8 Other specified cough; Z86.73 Personal history of transient ischemic attack (TIA), and cerebral infarction without residual deficits; Z11.52 Encounter for screening for COVID-19; Z79.4 Long term (current) use of insulin; Z79.01 Long term (current) use of anticoagulants; Z79.899 Other long term (current) drug therapy; Z88.8 Allergy status to other drugs, medicaments and biological substances
CPT/HCPCS: 36415; 71045; 80048; 80053; 82948; 83735; 83880; 84484; 85025; 85610; 87804; 87811; 93005; 93306; 94640; 94667; 94668; 96374; 97161; 97530; 99285; G0328; G0378; J1815; J1940

== ENCOUNTER 2024-12-24 14:55 | Outpatient (OUT) | payer MEDICARE, OTHER, SELFPAY ==
[2024-12-24 16:06] LABS: Albumin Level 3.3 g/dL (3.4-5.0); Anion Gap 12.6; BUN Creatinine Ratio 12.6; Calcium 8.5 mg/dL (8.5-10.1); Carbon Dioxide 28.6 mmol/L (21.0-32.0); Chloride 103 mmol/L (98-107); Estimated GFR (African America 19 (>=60 mL/min/1.73m^2); Estimated GFR (Non-African Ame 16 (>=60 mL/min/1.73m^2); Glucose 122 mg/dL (74-106); Phosphorus 4.5 mg/dL (2.6-4.7); Potassium 4.2 mmol/L (3.5-5.1); Sodium 140 mmol/L (136-145)
== END 2024-12-24 14:56 | disposition home or self-care (01) ==
LOC: LAB 14:58
PROVIDERS: PCP Family Medicine; Visit Provider Internal Medicine
DX: E87.5 Hyperkalemia (principal); E87.20 Acidosis, unspecified; N18.4 Chronic kidney disease, stage 4 (severe)
CPT/HCPCS: 36415; 80069

== ENCOUNTER 2024-12-31 12:22 | Outpatient (REF) | payer MEDICARE, OTHER, SELFPAY ==
[2024-12-31 13:05] LABS: Albumin Level 3.6 g/dL (3.4-5.0); Anion Gap 11.3; BUN Creatinine Ratio 11.4; Carbon Dioxide 26.6 mmol/L (21.0-32.0); Chloride 106 mmol/L (98-107); Estimated GFR (African America 21 (>=60 mL/min/1.73m^2); Estimated GFR (Non-African Ame 17 (>=60 mL/min/1.73m^2); Glucose 148 mg/dL (74-106); Potassium 4.9 mmol/L (3.5-5.1); Sodium 139 mmol/L (136-145)
== END 2024-12-31 12:23 | disposition home or self-care (01) ==
LOC: LAB 12:22
PROVIDERS: PCP Family Medicine; Visit Provider Internal Medicine
DX: N18.9 Chronic kidney disease, unspecified (principal)
CPT/HCPCS: 36415; 80069

== ENCOUNTER 2025-01-09 09:08 | Outpatient (OUT) | payer MEDICARE, OTHER, SELFPAY ==
--- OUTSIDE RECORDS SUMMARY | 2025-01-09 09:29 | XMS_ITS | CCD ---
Author Organization [facility] Care Team Providers Care Song Plugger Name Role Phone Curt Clark Unavailable Unavailable Unavailable CURT CLARK Primary Care Physician Lopez, Akin Unavailable Quita Ayon Unavailable MD Curt Clark Primary Care Provider DO Claire Choi II Attending Provider Curt Clark Unavailable MD Curt Clark Primary Care Provider [phone] DO Claire Choi II Attending Provider DR [...] CURT Patel Primary Care Unavailable TRABOULSSI, DR RBUI Consulting Unavailab le CLARK, DR CURT Patel Primary Care Unavailable PARK, TYREE Attending Unavailable PARK, TYREE Admitting Unavailable PARK, TYREE Consulting Unavailable ZIEBER, DIANN R Consulting Unavailable ADAMOWICZ, CLAIRE J Attending Unavailable ADAMOWICZ, CLAIRE J Admitting Unavailable ADAMOWICZ, CLAIRE J Consulting Unavailable Clark, Dr. Curt Alva Primary Care Unav ailable Carmelo, Dr. Rubi Referring Unavaila ble Traboulssi, Dr. Rubi Attending Unavaila ble Traboulssi, Dr. Rubi Referring Unavaila ble Traboulssi, Dr. Rubi Attending Unavaila ble Clark, Dr. Curt Alva Primary Care Unav MD Curt Rock Primary Care Provider DO Claire Choi II Attending Provider MD Nehemias Fernandez II Attending Provider Nehemias Fernandez II Unavailable Amber VELAZQUEZ, Curt Alva Primary Care Provider Unavailable Curt Clark MD Primary Care Provider MD Curt Clark Primary Care Provider Steph HOLLINGSWORTH, DO Claire J Attending Provider [phone] MD Curt Clark Primary Care Provider RAMAKRISHNA Connolly Attending Provider ARTEMIO GRAJEDA Attending Unavailable MD Curt Clark Primary Care Provider Steph HOLLINGSWORTH, DO Claire J Attending Provider [phone] MD Curt Clark Attending Provider Curt Clark MD Primary Care Provider MD Curt Clark Primary Care Provider Steph HOLLINGSWORTH, DO Claire J Attending Provider Steph HOLLINGSWORTH, DO Claire J Attending Provider ELICIA RHODES Referring Unavailable CURT CLARK Primary Care Unavailable MD Curt Clark Primary Care Provider RAMAKRISHNA Connolly Attending Provider Curt Clark MD Primary Care Provider MD Curt Clark Primary Care Provider RAMAKRISHNA Cnonolly Attending Provider DO Jesse Valdez Emergency Provider MD Pool Buck Admit Provider MD Pool Buck Attending Provider MD Cristiano Diaz Other Provider MD Sherron Li Other Provider MD Pj Montes Other Provider RAMAKRISHNA Pretty Other Provider Belcik Jr, DO Reddick L Other Provider MD Trent Patterson Attending Provider Curt Clark MD Primary Care Provider [phone] Jesse Valdez DO Emergency Provider Pool Buck MD Admit Provider Joe VELAZQUEZ, Cristiano Ferguson Other Provider Jen VELAZQUEZ, Sherron Other Provider Pj Montes MD Other Provider Kristan Pretty APRN Other Provider Isaias Morgan DO L Other Provider Yesenia VELAZQUEZ, Trent Attending Provider [phone] Yuniel Huggins DO Attending Provider Tyree PARK Attending Unavailable Tyree PARK Attending Unavailable Yuniel Huggins DO Attending Provider Curt Clark MD Primary Care Provider Misti Connolly APRN Attending Provider Louis Mcadams DO Emergency Provider Jonathan Valenzuela MD Admit Provider Jonathan Valenzuela MD Attending Provider Akin Suarez MD Other Provider Unavailable Primary Care Provider Unavailabl e ELICIA RHODES Attending Unavailable TRABSAMANTHA MOURSALOMEF Referring Unavailable CURT CLARK Primary Care Unavailable TRABELICIA SINGH Attending Unavailable CARMELO, KEYURF Referring Unavailable CURT CLARK Primary Care Unavailable TRABOULELICIA SUTTON Referring Unavailable CURT CLRAK Primary Care Unavailable Elicia Rhodes MD Attending Provider Elicia Rhodes MD Referring Provider Curt Clark Admitting Unavailable Curt Clark Primary Care Unavailable Curt Clark Attending Unavailable Elicia Rhodes Admitting Unavailable Elicia Rhodes Attending Unavailable Elicia Rhodes Referring Unavailable Curt Clark Primary Care Unavailable Curt Clark Primary Care Unavailable Mohsen, Crissy Admitting Unavail able Mohsen, Crissy Attending Unavail able Trent Patterson Attending Unavailable Curt Clark Primary Care Unavailable Cristiano Diaz Consulting Unavaila ble Cielo, Pool Patel Admitting Unavailab Sherron Baker Consulting Unavailable Pj Montes Consulting Unavailable Turovskaya, Kristan Consulting Unavailable Belcik Jr, Reddick L Consulting Unavailabl e Lopez, Akin Consulting Unavailable Valenzuela, Jonathan Admitting Unavailable Valenzuela, Jonathan Attending Unavailable Curt Clark Primary Care Unavailable Yuniel Huggins Admitting Unavailable Yuniel Huggins Attending Unavailable Allergies Allergy Classification Reported Allergen(s) Allergy Type Date of Onset Reaction(s) Facility lenalidomide (1 source) lenalidomide Drug Allergy 04-12-20 24 Rash, itching [facility] oxybutynin (1 source) oxybutynin Drug Allergy 04-12-20 24 Rash, rash, hives [facility] pregabalin (1 source) pregabalin Drug Allergy 04-12-20 24 double vision [facility] (20 sources) oxybutynin; Translations: [oxybutynin] Drug Allergy 07-13-20 22 Hives, Rash [facility] 250 DO Work Phone: (20 sources) lenalidomide; Translations: [lenalidomide] Drug Allergy 08-24-20 16 Unknown, Rash, itching, Rash, itching [facility] (20 sources) pregabalin; Translations: [pregabalin] Drug Allergy 07-13-20 22 Unknown, double vision [facility] (11 sources) pregabalin; Translations: [Lyrica] Drug Allergy DOUBLE [facility] Repository (10 sources) REVILID Propensity to adverse reactions ITCHY [facility] Other (1 source) lenalidomide Drug Allergy 08-24-20 16 [facility] Repository (1 source) oxybutynin Drug Allergy 12-27-19 20 [facility] Repository (1 source) Allergies Reconciled Propensity to adverse reactions Unknown [facility] Other (1 source) patient allergy list reviewed by nurse or physicia Propensity to adverse reactions 11-24-19 16 Comment:Done [facility] Other (4 sources) Acetaminophen / HYDROcodone Drug Allergy 03-05-20 [facility] (4 sources) Pregabalin Propensity to adverse reactions 03-05-20 [facility] (1 source) lenalidomide Drug Allergy 12-26-19 [facility] Repository (1 source) oxybutynin Drug Allergy 12-26-19 [facility] (1 source) pregabalin Drug Allergy 12-26-19 [facility] Repository Medications Current Medications Medication Drug Class(es) Dates Sig (Normalized) Sig (Original) atorvastatin 40 mg oral tablet (20 sources) HMG-CoA Reductase Inhibitor Start: 01-29-2020 Lipitor Oral, Daily, Refills(s) 0 Start Date: 01/29/20 Status: Ordered Start: 08-23-2018 Start: 07-14-2017 End: 08-23-2018 azithromycin 250 mg oral tablet (5 sources) [...] Active Start: 02-11-2022 take 1 capsule by [facility] three times daily as needed Benzonatate 100 MG Oral Capsule TAKE ONE CAPSULE BY MOUTH THREE TIMES A DAY NEEDED Quantity: 20 Refills: 0 Ordered: 11-Feb-2022 DO Start : 11-Feb-2022 Complete carvedilol 12.5 mg oral tablet (20 sources) alpha-Adrenergic Valentina, beta-Adrenergic Valentina Start: 11-07-2019 End: 06-06-2025 Start: 07-14-2017 End: 11-07-2019 Start: 10-05-2016 take 2 tablets by mo uth twice daily carvedilol 3.125 mg Tab 6.25 mg = 2 tab(s), Oral, BID Start Date: 10/05/16 Status: Ordered Start: 10-05-2016 take 2 tablets by mo [facility] twice daily carvedilol 3.125 mg Tab 6.25 mg = 2 tab(s), Oral, BID Start Date: 10/05/16 Status: Ordered cholecalciferol 0.025 mg ora l capsule (20 sources) Vitamin D Start: 01-01-2025 Start: 08-10-2018 End: 01-01-2025 Start: 10-05-2016 take 1 tablet by yaima th once daily Vitamin D3 5000 intl units oral tablet 5,000 International_Unit = 1 tab(s), Oral, Daily, Prophylaxis Start Date: 10/05/16 Status: Ordered take 1 tablet by yaima once daily cholecalciferol (Vitamin D-3) 25 MCG (1000 UT) tablet Take 1 tablet (25 mcg) by mouth once daily. Active citric acid 128 mg/ml / sodium citrate 98 mg/ml oral solution (20 sources) Calculi Dissolution Agent, Anti-coagulant Start: 12-25-2024 Start: 07-05-2024 End: 11-01-2024 take 1 mL by mouth once daily at bedtime as needed Sodium Citrate-Citric Acid (Oracit) 490-640 mg/5 mL solution Discontinued 10 ML PO Daily at bedtime as needed for Kidney stones July 05, 2024 12:14pm September 19, 2024 4:44pm Start: 10-06-2021 End: 10-06-2021 take 1 mL by mouth once Sodium Citrate-Citric Acid ( Oracit) 490-640 mg/5 mL Solution Discontinued 10 ML PO Once October 06, 2021 12:00am October 06, 2021 8:56am Start: 09-04-2021 Oracit oral so lution Refill(s) 0 Start Date: 09/04/21 Status: Ordered Start: 06-16-2021 End: 09-19-2024 Start: 06-16-2021 End: 07-05-2024 take 1 mL by mouth four times daily Sodium Citrate-Citric Acid (Oracit) 490-640 mg/5 mL Solution Discontinued 10 ML PO Four times daily June 15, 2021 11:00pm July 05, 2024 12:15pm Oracit 490-640 M G/5ML 10 ml after meals and at bedtime diluted with 1 to 3 ounces of water or juice Orally bid for 90 day(s) Active daratumumab (2 sources) [id number] Cytolytic Antibody Start: 12-17-2019 daratumumab mg, IV, q6wk, Refills(s) 0 Start Date: 12/17/19 Status: Ordered docosahexaenoic acid 120 mg / eicosapentaenoic acid 180 mg oral capsule (14 sources) take 1 capsule by mouth twice daily fish oil concentrate (Romney-3) 120-180 mg capsule Take 1 capsule (1 g) by mouth 2 times a day. Active take 1 capsule by mouth twice da lilia Fish Oil 1000 MG Oral Capsule Take 1 capsule twice daily Quantity: 0 Refills: 0 Ordered: 25-Aug-2021 DO Active ferrous sulfate 325 mg delay ed release oral tablet (8 sources) Start: 10-30-2024 Start: 10-14-2024 take 1 tablet by yaima th once daily at breakfast ferrous sulfate, 325 mg ferrous sulfate, tablet Take 1 tablet (325 mg) by mouth once daily with breakfast. 10/14/2024 Active furosemide 40 mg oral tablet (7 sources) Loop Diuretic Start: 12-22-2024 End: 12-25-2024 insulin isophane, human 100 unt/ml injectable suspension (20 sources) Start: 01-04-2024 End: 07-05-2024 Start: 01-04-2024 End: 07-05-2024 Insulin Nph Isoph U-100 Amalia n (Humulin N Nph U-100 Insulin) 100 unit/mL suspension Discontinued UNIT SUBCUT January 04, 2024 12:00am July 05, 2024 12:15pm FreeTextSi units (using [employer] brand) Subcutaneous 15 units twice a day; Note: Source Status: Taking; Provider: Gabo Ace Start: 08-10-2018 End: 01-04-2024 insulin NPH, Iso phane, (HumuLIN N,NovoLIN N) [...] chloride 598 mg delayed release oral tablet (9 sources) Start: 09-19-2024 meclizine hydrochloride 12.5 mg oral tablet (12 sources) Antiemetic take 1 tablet by mouth every twelve hours Meclizine HCl 12.5 MG 1 tablet as needed Orally every 12 hrs for 10 days Active Romney 3-Lkx-Deg-Fish Oil (Fish Oil) 1,000 mg (120 mg-180 mg) capsule (6 sources) Start: 07-05-2024 Romney 6-Ejl-Hxn-Fish Oil (Fish Oil) 1,000 mg (120 mg-180 mg) capsule Active 1 CAP PO Every 48 hours July 04, 2024 11:00pm Start: 07-05-2024 Romney 3-Dha-Ep a-Fish Oil (Fish Oil) 1,000 mg (120 mg-180 mg) capsule Active 1 CAP PO Every 48 hours July 05, 2024 12:00am Romney-3 Fatty Acids (FISH OIL PO) (4 sources) Romney-3 Fatty Acids (FISH OIL PO) Take by mouth Active Relion insulin (2 sources) Start: 1 inject 10 [IU] by subcutaneous injection at bedtime Relion insulin Relion insulin, 10 unit(s), SubCutaneous, Bedtime Start Date: 03/03/21 Status: Ordered rivaroxaban 15 mg oral tablet (20 sources) Factor Xa Inhibitor Start: 0 Xarelto Oral Start Date: 12/24/19 Status: Ordered Start: 11-07-2019 End: 09-19-2024 0.25 mg, 0.5 mg dose 1.5 ml semaglutide 1.34 mg/ml pen injector (5 sources) Start: 03-26-2021 Ozempic (0.25 or 0.5 MG/DOSE) 2 MG/1.5ML 0.5mg Subcutaneous once weekly for 84 days March, Active sulfamethoxazole 800 mg / trimethoprim 160 mg oral tablet (4 sources) Dihydrofolate Reductase Inhibitor Antibacterial, Sulfonamide Antimicrobial take 1 tablet by mouth every twelve hours Bactrim DS 800-160 MG 1 tablet Orally Twice a day for 5 days Active traMADol hydrochloride 50 mg oral tablet (3 sources) Opioid Agonist Start: 04-26-2023 take 1 tablet by mouth three times daily as needed True Metrix Blood Glucose Test - (20 sources) True Metrix Bloo d Glucose Test - [...] Start Date: 12/24/19 Status: Ordered Start: 05-02-2019 Cyanocobalamin ( VITAMIN B-12 PO) Take by [...] 5000 UNIT 1 capsule Orally Daily Active (20 sources) Start: 07-05-2024 Start: 03-15-2018 End: 07-04-2018 Start: 07-14-2017 End: 01-04-2024 Start: 07-14-2017 End: 07-05-2024 Completed/Discontinued Medications Medication Drug Class(es) Dates Sig (Normalized) Sig (Original) acetaminophen 325 mg / HYDROcodone bitartrate 5 mg oral tablet (20 sources) Opioid Agonist Start: 03-15-2018 End: 07-04-2018 Start: 03-15-2018 End: 07-04-2018 take 1 tablet by mouth every four to six hours as needed for pain Hydrocodone-Acetaminophen 5-325 mg Table t Discontinued 1 TAB PO EVERY 4-6 HOURS as needed for Pain March 14, 2018 11:00pm July 04, 2018 10:54am acyclovir 400 mg oral tablet (20 sources) Herpesvirus Nucleoside Analog DNA Polymerase Inhibitor, Herpes Simplex Virus Nucleoside Analog DNA Polymerase Inhibitor, Herpes Zoster Virus Nucleoside Analog DNA Polymerase Inhibitor Start: 01-02-2024 End: 11-28-2024 Start: 07-14-2017 End: 01-02-2024 Start: 10-05-2016 End: 11-01-2024 take 1 tablet by mouth twice daily Acyclovir 400 mg tablet Discontinued 400 MG PO Twice daily November 07, 2019 1:31pm January 02, 2024 12:10pm amLODIPine 5 mg oral tablet (20 sources) Dihydropyridine Calcium Channel Valentina Start: 11-12-2023 End: 11-11-2024 Start: 11-17-2021 amLODIPine Bes ylate 5 MG Oral Tablet Quantity: 90 Refills: 0 Ordered: 16-May-2022 DO Start : 17-Nov-2021 Complete Start: 04-28-2020 Start: 09-20-2018 End: 07-19-2023 Start: 09-20-2018 End: 07-19-2023 take 5 mg by mouth once daily Amlodipine Discontinued 5 MG PO Daily September 20, 2018 12:00am July 19, 2023 9:37am Start: 07-14-2017 End: 12-21-2017 amoxicillin 500 mg oral caps ule (20 sources) Penicillin-class Antibacterial Start: 08-10-2018 End: 08-23-2018 apixaban 5 mg oral tablet (16 sources) Factor Xa Inhibitor Start: 11-01-2024 End: 11-01-2025 Start: 09-19-2024 End: 01-01-2025 aspirin 81 mg chewable tablet (20 sources) Platelet Aggregation Inhibitor, Nonsteroidal Anti-inflammatory Drug Start: 10-18-2018 End: 10-30-2024 Start: 07-14-2017 End: 11-01-2024 Start: 10-05-2016 take 81 mg by mouth once daily aspirin 81 mg, Oral, Daily Start Date: 10/05/16 Status: Ordered cefdinir 300 mg oral capsule (17 sources) Cephalosporin Antibacterial Start: 04-12-2024 End: 05-31-2024 Start: 09-26-2023 Cefdinir 300 M G as directed Orally bid for 7 days Sep, Active cephalexin 250 mg oral capsu le (20 sources) Cephalosporin Antibacterial Start: 01-08-2020 End: 06-16-2021 Start: 02-15-2018 End: 03-22-2018 ciprofloxacin 500 mg oral tablet (2 sources) Quinolone Antimicrobial Start: 01-10-2023 Cipro 500 mg Tab 500 mg = 1 tab(s), Oral, As Directed, Patient to take 1 tab the day before procedure and the 2nd tab the day of procedure once completed, # 2 tab(s), Refills(s) 0, Pharmacy: [facility] [id number], 167, cm, 01/10/23 11:12:00 EST, Height/Length Dosing, 8... Start Date: 01/10/23 Status: Ordered Start: 02-11-2022 Ciprofloxacin HCl - 0.3 % Ophthalmic Solution Quantity: 5 Refills: 0 Ordered: 11-Feb-2022 DO Start : 11-Feb-2022 Complete clopidogrel 75 mg oral table t (20 sources) P2Y12 Platelet Inhibitor Start: 08-11-2018 End: 11-07-2019 cyclobenzaprine hydrochlorid e 10 mg oral tablet (20 sources) Muscle Relaxant Start: 11-04-2020 End: 07-19-2023 docusate sodium 100 mg oral capsule (8 sources) Start: 10-30-2024 End: 01-02-2025 DULoxetine 20 mg delayed rel ease oral capsule (12 sources) Serotonin and Norepinephrine Reuptake Inhibitor Start: 05-31-2024 End: 07-05-2024 ergocalciferol 1.25 mg oral capsule (20 sources) Provitamin D2 Compound Start: 07-14-2017 End: 08-10-2018 Start: 07-14-2017 End: 08-10-2018 take 1 capsule by mouth once daily Ergocalciferol (Vitamin D2) (Vitamin D2) 50,000 unit Capsule Discontinued 1 CAP PO daily July 13, 2017 11:00pm August 10, 2018 10:37am escitalopram 10 mg oral tabl et (9 sources) Serotonin Reuptake Inhibitor Start: 01-01-2025 End: 01-02-2025 Start: 10-30-2024 End: 12-19-2024 Fish Oils (20 sources) Start: 07-14-2017 End: 07-05-2024 take 1 capsule by mouth twice daily Fish Oil 500 mg capsule Discontinued 1200 CAP PO Twice daily July [...] 1:12pm Start: 07-14-2017 take 1 capsule by il ut twice daily Fish Oil Active 1200 CAP PO Twice daily July 13, 2017 11:00pm Start: 07-14-2017 take 1 capsule by il ut twice daily Fish Oil Active 1200 CAP PO Twice daily July 14, 2017 12:00am Start: 10-05-2016 take 1 capsule by [facility] twice daily Fish Oil 1000 mg oral capsule 1,000 mg = 1 cap(s), Oral, BID, Prophylaxis Start Date: 10/05/16 Status: Ordered take 1 capsule by [facility] twice daily take 1 capsule by [facility] twice daily Fish Oil 1000 MG 1 capsule Orally Twice a day Active Insulin Lispro (Humalog Kwikpen Insulin) 100 unit/mL Insulin Pen (14 sources) Start: 07-14-2017 End: 01-04-2024 Insulin Lispro (Humalog Kwik pen Insulin) 100 unit/mL Insulin Pen Discontinued 0 UNIT SUBCUT Before meals and at bedtime as needed for DIABETES July 13, 2017 11:00pm January 04, 2024 11:03am SLIDING SCALE Please contact the information source for Protocol details. Start: 07-14-2017 End: 01-04-2024 Insulin Lispro (Humalog [...] SLIDING SCALE linagliptin 5 mg oral tablet (20 sources) Dipeptidyl Peptidase 4 Inhibitor Start: 01-08-2020 End: 09-09-2020 omeprazole 20 mg delayed rel ease oral capsule (9 sources) Proton Pump Inhibitor Start: 01-01-2025 End: 01-02-2025 Start: 10-25-2024 End: 12-25-2024 24 hr oxybutynin chloride 10 mg extended release oral tablet (20 sources) Cholinergic Muscarinic Antagonist Start: 02-15-2018 End: 03-22-2018 predniSONE 20 mg oral tablet (20 sources) Start: 01-02-2021 End: 05-19-2021 Start: 07-14-2017 End: 05-18-2018 predniSONE 50 MG Oral for 5 Days Active PROCRIT INJECTION - 1000 uni ts (20 sources) Start: 07-12-2014 PROCRIT INJECT ION - 1000 units Jun,19990 units Start: 07-12-2014 PROCRIT INJECT ION - 1000 units Jun,19990 U raNITIdine 150 mg oral tablet (16 sources) Histamine-2 Receptor Antagonist Start: 03-15-2018 End: 07-04-2018 take 1 capsule by mouth once daily at bedtime Ranitidine Hcl 150 mg Capsule Discontinued 150 MG PO Daily at bedtime March 14, 2018 11:00pm July 04, 2018 10:55am Start: 03-15-2018 End: 07-04-2018 take 150 mg by mouth once daily at bedtime Ranitidine Hcl Discontinued 150 MG PO Daily at bedtime March 14, 2018 11:00pm July 04, 2018 10:55am sodium bicarbonate 650 mg or al tablet (20 sources) Start: 07-14-2017 End: 12-25-2024 Start: 07-14-2017 End: 09-19-2024 Start: 07-14-2017 End: 09-19-2024 take 1 tablet by mouth twice daily Sodium Bicarbonate 650 mg Tablet Discontinued 650 MG PO Twice daily July 13, 2017 11:00pm September 19, 2024 4:44pm take 1 tablet by yaima th twice daily Sodium Bicarbonate 325 MG Oral Tablet Take 1 tablet twice daily Quantity: 0 Refills: 0 Ordered: 25-Aug-2021 DO Active triamcinolone acetonide 40 mg/ml injectable suspension (15 [...] Translations: [Cerebellar stroke] Onset: 8 12-17-2019 Chronic Anxiety disorders (12 sources) Anxiety; Translations: [Anxiety disorder, unspecified] 11-09-2024 Chronic Aortic; peripheral; and visceral artery aneurysms (20 sources) Ascending aorta dilatation; Translations: [Thoracic aortic ectasia] Onset: 3 10-04-2023 Chronic Blindness and vision defects (16 sources) Diplopia; Translations: [Diplopia] Onset: 8 12-12-2024 Episodic Calculus of urinary tract (20 sources) Kidney stone; Translations: [Calculus of kidney] Onset: 4 Resolved: 2 Episodic Cardiac dysrhythmias (20 sources) Persistent atrial fibrillation; Translations: [Atrial fibrillation] Onset: 3 01-08-2020 Chronic Cardiac dysrhythmias (20 sources) Palpitations; Translations: [Palpitations] 01-26-2020 Episodic Chronic [...] [Dizziness and giddiness] Onset: 7 09-21-2017 Episodic Congestive heart failure; nonhypertensive (20 sources) Heart failure; Translations: [Heart failure, unspecified] Onset: 5 12-19-2024 Chronic Deficiency and other anemia (20 sources) Anemia in chronic kidney disease; Translations: [Anemia in chronic kidney disease] Chronic Deficiency and other anemia (20 sources) Anemia; Translations: [Anemia, unspecified] 09-09-2020 Episodic Deficiency and other anemia (20 sources) Nutritional anemia; Translations: [Vitamin B12 deficiency anemia, unspecified] 06-16-2021 Episodic Deficiency and other anemia (10 sources) Anemia, unspecified; Translations: [Anemia, unspecified] 07-13-2022 Episodic Deficiency and other anemia (10 sources) Vitamin B12 deficiency anemia, unspecified; Translations: [...] Translations: [Acidemia] Onset: 1 Resolved: 2 Episodic Gastrointestinal hemorrhage (17 sources) Gastrointestinal hemorrhage; Translations: [Gastrointestinal hemorrhage, unspecified] Onset: 4 11-01-2024 Episodic Genitourinary symptoms and ill-defined conditions (13 [...] [ENCOUNTER FOR ANTINEOPLASTIC CHEMO] Onset: 2 Chronic Mood disorders (20 sources) Depression; Translations: [Depressive disorder] Onset: 5 06-11-2024 Chronic Multiple myeloma (20 sources) Multiple myeloma; Translations: [Multiple myeloma, without mention of having achieved remission] Onset: 4 Resolved: 2 12-17-2019 Chronic Nutritional deficiencies (20 sources) Vitamin D deficiency; Translations: [Vitamin D deficiency, unspecified] Onset: 1 Resolved: 2 Chronic Nutritional deficiencies (20 sources) Cobalamin deficiency; Translations: [Deficiency of other specified B group vitamins] 03-19-2020 Episodic Other aftercare (20 sources) Drug therapy finding; Translations: [senior care (current) use of systemic steroids] Episodic Other aftercare (20 sources) Long-term current use of insulin; Translations: [buttermaker continuous churn (current) use of insulin] 01-03-2024 Episodic Other aftercare (1 source) buttermaker continuous churn (current) use of aspirin; Translations: [COMBINATION TECHNICIAN CURRENT USE OF ASPIRIN] Onset: 3 Episodic Other aftercare (1 source) Other superintendent terminal (current) drug therapy; Translations: [OTH COMBINATION TECHNICIAN CURRENT DRUG THERAPY] Onset: 3 Episodic Other aftercare (1 source) senior care (current) use of insulin; Translations: [SNF CURRENT USE OF INSULIN] Onset: 3 Episodic Other aftercare (1 source) buttermaker continuous churn (current) use of anticoagulants; Translations: [COMBINATION TECHNICIAN CURRNT USE ANTICOAGULANTS] Onset: 3 Episodic Other aftercare (16 sources) Long-term current use of steroid; Translations: [buttermaker continuous churn (current) use of systemic steroids] 01-03-2024 Episodic Other circulatory disease (1 source) Personal history of transient ischemic attack (TIA), and cerebral infarction without residual deficits; Translations: [PERS HX TIA AND CI NO RESID DEFICIT] Onset: 3 Episodic Other circulatory disease (11 sources) Elevated blood-pressure reading without diagnosis of hypertension; Translations: [Elevated blood-pressure reading, without diagnosis of hypertension] Episodic Other connective tissue disease (20 sources) Monoparesis - leg; Translations: [Other symptoms and signs involving the musculoskeletal system] 10-17-2019 Episodic Other connective tissue disease (14 sources) Other symptoms and signs involving the [...] Chronic Other diseases of kidney and ureters (16 sources) Secondary hyperparathyroidism of renal origin; Translations: [Secondary hyperparathyroidism (of renal origin)] Onset: 1 Resolved: 2 Chronic Other diseases of kidney and ureters (20 sources) Secondary hyperparathyroidism; Translations: [Secondary hyperparathyroidism of renal origin] 01-04-2024 Chronic Other ear and sense organ disorders (20 sources) Hearing loss; Translations: [Unspecified hearing loss, unspecified ear] 11-23-2017 Chronic Other ear and sense organ disorders (10 sources) Unspecified hearing loss, unspecified ear; Translations: [Unspecified hearing loss] 07-13-2022 Chronic Other ear and sense organ disorders (1 source) Conductive hearing loss; Translations: [Unspecified conductive hearing loss] Onset: 7 Chronic Other endocrine disorders (20 sources) 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; Translations: [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] 01-04-2024 Chronic Other lower respiratory disease (13 sources) Dyspnea; Translations: [Dyspnea, unspecified] 09-18-2024 Episodic Other lower respiratory disease (9 sources) Dyspnea, unspecified; Translations: [Other respiratory abnormalities] Onset: 5 09-18-2024 Episodic Other nervous system disorders (20 sources) Abnormal gait; Translations: [Unsteadiness on feet] Onset: 4 09-21-2017 Episodic Other nervous system disorders (20 sources) Unsteadiness on feet; Translations: [Abnormality of gait] 07-13-2022 Episodic Other nervous system disorders (20 sources) Impairment of balance; Translations: [Other abnormalities of gait and mobility] 01-04-2024 Episodic Other nervous system disorders (1 source) Other abnormalities of gait and mobility Episodic Other nervous system disorders (5 sources) Anesthesia of skin; Translations: [Disturbance of skin sensation] 12-12-2024 Episodic Other non-traumatic joint disorders (7 sources) Pain in left knee; Translations: [PAIN IN LEFT KNEE] Onset: 3 Episodic Other non-traumatic joint disorders (5 sources) Pain in unspecified shoulder; Translations: [Pain in joint, shoulder region] 12-12-2024 Episodic Other nutritional; endocrine; and metabolic disorders (20 sources) Body mass index 30+ - obesity; Translations: [Obesity, unspecified] Onset: 4 04-17-2024 Chronic Other nutritional; endocrine; and metabolic disorders (5 sources) Obesity; Translations: [Obesity, unspecified] Chronic Other nutritional; endocrine; and metabolic disorders (8 sources) Hypomagnesemia; Translations: [Hypomagnesemia] 09-18-2024 Chronic Other nutritional; endocrine; and metabolic disorders (3 sources) Hypomagnesemia; Translations: [Disorders of magnesium metabolism] 09-18-2024 Chronic Other nutritional; endocrine; and metabolic disorders (2 sources) Body mass index (BMI) 32.0-32.9, adult; Translations: [Body mass index (BMI) 32.0-32.9, adult] Onset: 4 Chronic Other nutritional; endocrine; [...] TRACT] Onset: 3 Episodic Residual codes; unclassified (5 sources) Body fluid retention; Translations: [Edema, unspecified] 12-19-2024 Episodic Residual codes; unclassified (5 sources) Edema, unspecified; Translations: [Other fluid overload] 12-19-2024 Episodic Secondary malignancies (1 source) Secondary malignant neoplasm of bone; Translations: [SECONDARY MALIGNANT NEOPLASM BONE] Onset: 2 Chronic Syncope (1 source) Syncope and collapse Episodic Transient cerebral ischemia (5 sources) Transient cerebral ischemia; Translations: [Unspecified transient cerebral ischemia] Onset: 8 03-05-2024 Chronic Unclassified (2 sources) Drug therapy finding 12-17-2019 Unclassified (1 source) ACIDOSIS UNSPECIFIED; Translations: [ACIDOSIS UNSPECIFIED] Onset: 3 Unclassified (2 sources) CONTACT W/AND (SUSP) EXPOS COVID-19; Translations: [CONTACT W/AND (SUSP) EXPOS COVID-19] Onset: 2 Unclassified (11 sources) 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); Translations: [Post COVID-19 condition, unspecified] Unclassified (5 sources) Other persistent atrial fibrillation; Translations: [Other persistent atrial fibrillation] Onset: 3 Unclassified (1 source) Acidosis, unspecified; Translations: [Acidosis, unspecified] Onset: 5 Viral infection (15 sources) Viral wart, unspecified; Translations: [Herpes zoster without complication] Onset: 4 Episodic Viral infection (4 sources) COVID-19; Translations: [COVID-19] Onset: 2 Past or Other Problems Problem Classification Problem Date Documented Da te Episodic/Chronic Administrative/social admission (10 sources) Other reduced mobility; Translations: [Impaired mobility and activities of daily living] Onset: 09-18-2024 09-18-2024 Episodic Headache; including migraine (1 source) Headache; Translations: [Headache] Onset: 12-13-2017 Episodic Immunizations and screening for infectious disease (1 source) Encounter for immunization; Translations: [ENCOUNTER FOR IMMUNIZATION] Onset: 05-26-2022 Episodic Malaise and fatigue (19 sources) Weakness; Translations: [Asthenia] Onset: 09-18-2024 Episodic Nonspecific chest pain (13 sources) Chest pain; Translations: [Chest pain, Other] Onset: 11-24-2015 09-18-2024 Episodic Other and unspecified benign neoplasm (1 source) Benign neoplasm of skin of trunk, excluding scrotum; Translations: [Benign neoplasm of skin of trunk, except scrotum] Onset: 06-22-2018 Episodic Other connective tissue disease (4 sources) Myofascial pain; Translations: [Myalgia, other site] Onset: 03-05-2024 03-05-2024 Episodic Other ear and sense organ disorders (1 source) Disorder of ear; Translations: [Unspecified disorder of ear] Onset: 11-22-2016 Episodic Other lower respiratory disease (16 sources) Dyspnea at rest; Translations: [Shortness of breath] Onset: 10-04-2023 10-04-2023 Episodic Other lower respiratory disease (2 sources) Shortness of breath; Translations: [Shortness of breath] Onset: 10-04-2023 Episodic Residual codes; unclassified (1 source) Family history of diabetes mellitus; Translations: [Family history of diabetes mellitus] Onset: 08-06-2014 Episodic Residual codes; unclassified (5 sources) Never smoked tobacco; Translations: [Other specified health status] Onset: 04-17-2024 04-17-2024 Episodic Residual codes; unclassified (3 sources) Other specified health status; Translations: [Other specified health status] Onset: 04-17-2024 Episodic Spondylosis; intervertebral disc disorders; other back problems (4 sources) Lumbosacral radiculopathy; Translations: [Radiculopathy, lumbosacral region] Onset: 03-05-2024 03-05-2024 Episodic Unclassified (8 sources) Never smoked tobacco; Translations: [Never a smoker] Unclassified (1 source) CONTACT W/AND (SUSP) EXPOS COVID-19; Translations: [CONTACT W/AND (SUSP) EXPOS COVID-19] Onset: 05-21-2022 Unclassified (1 source) Lumbar pain M54.50 Unclassified (6 sources) Onset: 10-04-2023 Resolved: 04-17-2024 10-04-2023 Urinary tract infections (19 sources) Urinary tract infectious disease; Translations: [Urinary tract infection, site not specified] Onset: 04-12-2024 04-12-2024 Episodic Results Test Name Value Interpretation Reference Range Facility Carbon dioxide, total [Moles /volume] in Serum or PlasmaOrdered By: Elicia Rhodes on 01-02-2025 CO2 [Moles/Vol] Carbon dioxide, tota l [Moles/volume] in Serum or Plasma 21.0-31.0 [facility] Chloride [Moles/volume] in S amanda or PlasmaOrdered By: Elicia Rhodes on 01-02-2025 Chloride [Moles/Vol] Chloride [Moles/vol ume] in Serum or Plasma High 98-107 [facility] ECG 12 lead ECGon 01-02-2025 ECG 12 lead ECG [facility] [place] [address] Electrocardiograph Report Signed Patient: Hailee Trivedi MR#: [id number] : 1940 Acct:[id number] Age/Sex: 84 / F ADM Date: 01/02/25 Loc: Room: Type: [facility] Attending Dr: Elicia Rhodes MD Ordering Provider: Elicia Rhodes MD Date of Service: 01/02/25 ECG/ECG 12 lead ECG: Pre-cardioversion rhythm assessment Copies to: Test Reason : Blood Pressure : */* mmHG Vent. Rate : 80 BPM Atrial Rate : 93 BPM P-R Int : * ms QRS Dur : 90 ms QT Int : 398 ms P-R-T Axes : * 56 103 degrees QTcB Int : 459 ms Atrial fibrillation Abnormal ECG When compared with ECG of 19-Dec-2024 11:43, Nonspecific T wave abnormality, improved in Lateral leads Confirmed by Reyes Echevarria ([id number]) on 01/02/2025 2:56:23 PM Referred By: Elciia Rhdoes Electronically Signed By: Reyes Echevarria Transcribed By: MUS Signed By Reyes Echevarria MD 01/02/25 1456 Normal [facility] ECG post procedureon 025 ECG post procedure [facility] [place] [address] [place] [address] [place] [id number] Electrocardiograph Report Signed Patient: Hailee Trivedi MR#: [id number] : 1940 Acct:[id number] Age/Sex: 84 / F ADM Date: 01/02/25 Loc: Room: Type: [facility] Attending Dr: Elicia Rhodes MD Ordering Provider: Elicia Rhodes MD Date of Service: 01/02/25/ ECG/ECG post procedure: A-fib Copies to: Test Reason : Blood Pressure : 135/78 mmHG Vent. Rate : 92 BPM Atrial Rate : 92 BPM P-R Int : 212 ms QRS Dur : 88 ms QT Int : 380 ms P-R-T Axes : 90 54 96 degrees QTcB Int : 469 ms Sinus rhythm with 1st degree AV block with premature atrial complexes Otherwise normal ECG When compared with ECG of 02-Jan-2025 07:56, (Unconfirmed) Sinus rhythm has replaced Atrial fibrillation Confirmed by Reyes Echevarria ([id number]) on 01/02/2025 2:54:48 PM Referred By: Elicia Rhodes Electronically Signed By: Reyes Echevarria Transcribed By: MUS Signed By Reyes Echevarria MD 01/02/25 1273 Normal [facility] Electrolyteson 01-02-2025 Anion gap [Moles/Vol] 10.4 mmol/L Normal 6.0-15.0 [facility] Comment on above: Result Comment: PERF ORMED BY: [place] [address] PATHOLOGIST FACILITIES MECHANICAL DESIGN ENGINEER CARLOS A CARD M.D. Performed By: #### G LULS #### Point of Care testing , Chloride [Moles/Vol] 109 mmol/L High 98-107 [facility] Comment on above: Performed By: #### G LULS #### Point of Care testing , CO2 [Moles/Vol] 23.8 mmol/L Normal 21.0-31.0 [facility] Comment on above: Performed By: #### G LULS #### Point of Care testing , Potassium [Moles/Vol] 4.2 mmol/L Normal 3.5-5.1 [facility] Comment on above: Performed By: #### G LULS #### Point of Care testing , Sodium [Moles/Vol] 139 mmol/L Normal 136-145 [facility] Comment on above: Performed By: #### G LULS #### Point of Care testing , Potassium [Moles/volume] in Serum or PlasmaOrdered By: Elicia Rhodes on 01-02-2025 Potassium [Moles/Vol] Potassium [Moles/v olume] in Serum or Plasma 3.5-5.1 [facility] Serum or plasma anion gap de terminationOrdered By: Elicia Rhodes on 01-02-2025 Anion gap [Moles/Vol] Serum or plasma an ion gap determination 6.0-15.0 [facility] Sodium [Moles/volume] in Ser um or PlasmaOrdered By: Elicia Rhodes on 01-02-2025 Sodium [Moles/Vol] Sodium [Moles/volume ] in Serum or Plasma 136-145 [facility] Estimated glomerular filtrat ion rate (GFR) non- Americanon 12-31-2024 GFR/1.73 sq M.predicted among non-blacks MDRD (S/P/Bld) [Vol rate/Area] Estimated glomerular filtration rate (GFR) non- Low >=60 mL/min/1.7 3m 2 [facility] No Panel Informationon 12-31 3.6 g/dL 3.4-5.0 [facility] 11.4 [facility] 30.0 mg/dL High 7.0-18.0 [facility] 9.0 mg/dL 8.5-10.1 [facility] 106 mmol/L 98-107 [facility] 26.6 mmol/L 21.0-32.0 [facility] 2.63 mg/dL High 0.55-1.02 [facility] 21 Low >=60 mL/min/1.7 3m 2 [facility] 148 mg/dL High 74-106 [facility] 4.9 mmol/L 3.5-5.1 [facility] 139 mmol/L 136-145 [facility] 4.0 mg/dL 2.6-4.7 [facility] Serum or plasma anion gap de terminationon 12-31-2024 Anion gap [Moles/Vol] Serum or plasma an ion gap determination [facility] Estimated glomerular filtrat ion rate (GFR) non- Americanon 12-24-2024 GFR/1.73 sq M.predicted among non-blacks MDRD (S/P/Bld) [Vol rate/Area] Estimated glomerular filtration rate (GFR) non- Low >=60 mL/min/1.7 3m 2 [facility] No Panel Informationon 12-24 3.3 g/dL Low 3.4-5.0 [facility] 12.6 [facility] 36.0 mg/dL High 7.0-18.0 [facility] 8.5 mg/dL 8.5-10.1 [facility] 103 mmol/L 98-107 [facility] 28.6 mmol/L 21.0-32.0 [facility] 2.86 mg/dL High 0.55-1.02 [facility] 19 Low >=60 mL/min/1.7 3m 2 [facility] 122 mg/dL High 74-106 [facility] 4.2 mmol/L 3.5-5.1 [facility] 140 mmol/L 136-145 [facility] 4.5 mg/dL 2.6-4.7 [facility] Serum or plasma anion gap de terminationon 12-24-2024 Anion gap [Moles/Vol] Serum or plasma an ion gap determination [facility] Basic Metabolic Panelon Anion gap [Moles/Vol] 9.8 mmol/L Normal 6.0-15.0 [facility] Comment on above: Performed By: #### B ####[facility] [id number] [place] [id number] [facility] Calcium [Mass/Vol] 7.5 mg/dL Low 8.6-10.3 [facility] Comment on above: Performed By: #### B MP ####[address] Chloride [Moles/Vol] 114 mmol/L High 98-107 [facility] Comment on above: Performed By: #### B MP ####[place] [id number] [facility] CO2 [Moles/Vol] 20.7 mmol/L Low 21.0-31.0 [facility] Comment on above: Performed By: #### B MP ####[address] Creatinine [Mass/Vol] 1.87 mg/dL Significan t change up 0.60-1.20 [facility] Comment on above: Performed By: #### B MP ####[address] Creatinine Clr Calc Pharmacy 25.92 Normal [facility] Comment on above: Result Comment: PERF ORMED BY: [facility] [address] [place] [address] PATHOLOGIST FACILITIES MECHANICAL DESIGN ENGINEER CARLOS A CARD M.D. Performed By: #### B MP ####[address] Estimated GFR 26.539 mL/Min Normal [facility] Comment on above: Performed By: #### B MP ####[place] [id number] [facility] Glucose [Mass/Vol] 126 mg/dL High 70-100 [facility] Comment on above: Result Comment: [place] [facility] Glucose Reference Range is dependent on time and content of last meal. Glucose of more than 200 mg/dL in a nonstressed, ambulatory subject supports the diagnosis of Diabetes Mellitus. ADA recommended reference range Performed By: #### B MP ####[place] [id number] [facility] Potassium [Moles/Vol] 3.5 mmol/L Normal 3.5-5.1 [facility] Comment on above: Performed By: #### B MP ####[place] [id number] [place] [id number] [facility] Sodium [Moles/Vol] 141 mmol/L Normal 136-145 [facility] Comment on above: Performed By: #### B MP ####[facility] [place] [id number] [facility] Urea nitrogen [Mass/Vol] 25 mg/dL Normal 7-25 [facility] Comment on above: Performed By: #### B MP ####[facility] [place] [id number] [facility] Calcium [Mass/volume] in Ser um or PlasmaOrdered By: Alivia Arana on 12-22-2024 Calcium [Mass/Vol] Calcium [Mass/volume ] in Serum or Plasma Low 8.6-10.3 [facility] Carbon dioxide, total [Moles /volume] in Serum or PlasmaOrdered By: Alivia Arana on 12-22-2024 CO2 [Moles/Vol] Carbon dioxide, tota l [Moles/volume] in Serum or Plasma Low 21.0-31.0 [facility] Chloride [Moles/volume] in S amanda or PlasmaOrdered By: Alivia Arana on 12-22-2024 Chloride [Moles/Vol] Chloride [Moles/vol ume] in Serum or Plasma High 98-107 [facility] Creatinine [Mass/volume] in Serum or PlasmaOrdered By: Alivia Arana on 12-22-2024 Creatinine [Mass/Vol] Creatinine [Mass/v olume] in Serum or Plasma Invalid Interpretation Code 0.60-1.20 [facility] Glucose Glucometer (BldC) [M ass/Vol]Ordered By: Jonathan Valenzuela on 12-22-2024 Glucose [Mass/Vol] Capillary blood gluc ose measurement by glucometer (mass/volume) [facility] Glucose Poct Glucometerson 0 12-22-2024 Glucose [Mass/Vol] 180 mg/dL Normal [facility] Comment on above: Result Comment: [place] Glucose Reference Range is dependent on time and content of last meal. Glucose of more than 200 mg/dL in a nonstressed, ambulatory subject supports the diagnosis of Diabetes Mellitus. PERFORMED BY: [address] [address] PATHOLOGIST FACILITIES MECHANICAL DESIGN ENGINEER CARLOS A CARD M.D. Performed By: #### G LULS #### Point of Care testing , Glucose [Mass/Vol] 155 mg/dL Normal [facility] Comment on above: Result Comment: [facility] Glucose Reference Range is dependent on time and content of last meal. Glucose of more than 200 mg/dL in a nonstressed, ambulatory subject supports the diagnosis of Diabetes Mellitus. PERFORMED BY: [place] [address] PATHOLOGIST FACILITIES MECHANICAL DESIGN ENGINEER CARLOS A CARD M.D. Performed By: #### P ATH TO [facility] #### [address] Glucose [Mass/volume] in Ser um or PlasmaOrdered By: Alivia Arana on 12-22-2024 Glucose [Mass/Vol] Glucose [Mass/volume ] in Serum or Plasma High 70-100 [facility] No Panel InformationOrdered By: Alivia Arana on 12-22-2024 26.539 mL/Min [facility] 25.92 [facility] Potassium [Moles/volume] in Serum or PlasmaOrdered By: Alivia Arana on 12-22-2024 Potassium [Moles/Vol] Potassium [Moles/v olume] in Serum or Plasma 3.5-5.1 [facility] Serum or plasma anion gap de terminationOrdered By: Alivia Arana on 12-22-2024 Anion gap [Moles/Vol] Serum or plasma an ion gap determination 6.0-15.0 [facility] Sodium [Moles/volume] in Ser um or PlasmaOrdered By: Alivia Arana on 12-22-2024 Sodium [Moles/Vol] Sodium [Moles/volume ] in Serum or Plasma 136-145 [facility] Urea nitrogen [Mass/volume] in Serum or PlasmaOrdered By: Alivia Arana on 12-22-2024 Urea nitrogen [Mass/Vol] Urea nitrogen [Mass/volume] in Serum or Plasma 7-25 [facility] Basic Metabolic Panelon 02-0 Anion gap [Moles/Vol] 11.1 mmol/L Normal 6.0-15.0 [facility] Comment on above: Performed By: #### B MP #### [address] Calcium [Mass/Vol] 8.6 mg/dL Normal 8.6-10.3 [facility] Comment on above: Performed By: #### B MP #### [address] Chloride [Moles/Vol] 109 mmol/L High 98-107 [facility] Comment on above: Performed By: #### B MP #### [address] CO2 [Moles/Vol] 23.1 mmol/L Normal 21.0-31.0 [facility] Comment on above: Performed By: #### B MP #### [address] Creatinine [Mass/Vol] 2.42 mg/dL High 0.60-1.20 [facility] Comment on above: Performed By: #### B MP #### [address] Creatinine Clr Calc Pharmacy 20.03 Normal [facility] Comment on above: Result Comment: PERF ORMED BY: [place] [address] PATHOLOGIST FACILITIES MECHANICAL DESIGN ENGINEER CARLOS A CARD M.D. Performed By: #### B MP #### [address] Estimated GFR 19.477 mL/Min Normal [facility] Comment on above: Performed By: #### B MP #### [address] Glucose [Mass/Vol] 147 mg/dL High 70-100 [facility] Comment on above: Result Comment: [place] Glucose Reference Range is dependent on time and content of last meal. Glucose of more than 200 mg/dL in a nonstressed, ambulatory subject supports the diagnosis of Diabetes Mellitus. ADA recommended reference range Performed By: #### B MP #### [address] Potassium [Moles/Vol] 4.2 mmol/L Normal 3.5-5.1 [facility] Comment on above: Performed By: #### B MP #### [address] Sodium [Moles/Vol] 139 mmol/L Normal 136-145 [facility] Comment on above: Performed By: #### B MP #### [address] Urea nitrogen [Mass/Vol] 28 mg/dL High 7-25 [facility] Comment on above: Performed By: #### B MP #### [address] Glucose Poct Glucometerson 0 12-21-2024 Glucose [Mass/Vol] 116 mg/dL Normal [facility] Comment on above: Result Comment: [facility] Glucose Reference Range is dependent on time and content of last meal. Glucose of more than 200 mg/dL in a nonstressed, ambulatory subject supports the diagnosis of Diabetes Mellitus. PERFORMED BY: [place] [address] PATHOLOGIST FACILITIES MECHANICAL DESIGN ENGINEER CARLOS A CARD M.D. Performed By: #### P ATH TO [facility] #### [address] Glucose [Mass/Vol] 146 mg/dL Normal [facility] Comment on above: Result Comment: [facility] Glucose Reference Range is dependent on time and content of last meal. Glucose of more than 200 mg/dL in a nonstressed, ambulatory subject supports the diagnosis of Diabetes Mellitus. PERFORMED BY: [place] [address] PATHOLOGIST FACILITIES MECHANICAL DESIGN ENGINEER CARLOS A CARD M.D. Performed By: #### G LULS #### Point of Care testing , Glucose [Mass/Vol] 165 mg/dL Normal [facility] Comment on above: Result Comment: [place] Glucose Reference Range is dependent on time and content of last meal. Glucose of more than 200 mg/dL in a nonstressed, ambulatory subject supports the diagnosis of Diabetes Mellitus. PERFORMED BY: [facility] [address] [place] [id number] PATHOLOGIST FACILITIES MECHANICAL DESIGN ENGINEER CARLOS A CARD M.D. Performed By: #### G LULS #### Point of Care testing , Commemt1 Glu2: Cleaned Meter Normal [facility] Comment on above: Result Comment: PERF ORMED BY: [facility] [address] [place] [address] PATHOLOGIST FACILITIES MECHANICAL DESIGN ENGINEER CARLOS A CARD M.D. Performed By: #### G LULS #### Point of Care testing , Glucose [Mass/Vol] 155 mg/dL Normal [facility] Comment on above: Result Comment: [facility] Glucose Reference Range is dependent on time and content of last meal. Glucose of more than 200 mg/dL in a nonstressed, ambulatory subject supports the diagnosis of Diabetes Mellitus. Performed By: #### G LULS #### Point of Care testing , No Panel InformationOrdered By: Jonathan Valenzuela on 12-21-2024 Glu2: cleaned meter [facility] Basic Metabolic Panelon Anion gap [Moles/Vol] 10.7 mmol/L Normal 6.0-15.0 [facility] Comment on above: Performed By: #### B MP, CBC ####[facility] [id number] [place] [address] [facility] Calcium [Mass/Vol] 8.7 mg/dL Normal 8.6-10.3 [facility] Comment on above: Performed By: #### B MP, CBC ####[facility] [id number] [place] [address] [place] Chloride [Moles/Vol] 111 mmol/L High 98-107 [facility] Comment on above: Performed By: #### B MP, CBC ####[place] [id number] [place] [id number] [facility] CO2 [Moles/Vol] 21.9 mmol/L Normal 21.0-31.0 [facility] Comment on above: Performed By: #### B MP, CBC ####[place] [id number] [facility] Creatinine [Mass/Vol] 2.21 mg/dL High 0.60-1.20 [facility] Comment on above: Performed By: #### B MP, CBC ####[place] [address] [place] Creatinine Clr Calc Pharmacy 21.99 Normal [facility] Comment on above: Result Comment: PERF ORMED BY: [facility] [address] [place] [address] PATHOLOGIST FACILITIES MECHANICAL DESIGN ENGINEER CARLOS A CARD M.D. Performed By: #### B MP, CBC ####[address] Estimated GFR 21.719 mL/Min Normal [facility] Comment on above: Performed By: #### B MP, CBC ####[place] [id number] [facility] Glucose [Mass/Vol] 131 mg/dL High 70-100 [facility] Comment on above: Result Comment: [place] Glucose Reference Range is dependent on time and content of last meal. Glucose of more than 200 mg/dL in a nonstressed, ambulatory subject supports the diagnosis of Diabetes Mellitus. ADA recommended reference range Performed By: #### B MP, CBC ####[place] [id number] [facility] Potassium [Moles/Vol] 4.6 mmol/L Normal 3.5-5.1 [facility] Comment on above: Performed By: #### B MP, CBC ####[place] [id number] [place] Sodium [Moles/Vol] 139 mmol/L Normal 136-145 [facility] Comment on above: Performed By: #### B MP, CBC ####[address] Urea nitrogen [Mass/Vol] 24 mg/dL Normal 7-25 [facility] Comment on above: Performed By: #### B MP, CBC ####[address] Basophils Auto (Bld) [#/Vol] Ordered By: Alivia Arana on 12-20-2024 Basophils (Bld) [#/Vol] Automated basophil count 0.0-0.2 [facility] Basophils/100 WBC Auto (Bld) Ordered By: Alivia Arana on 12-20-2024 Basophils/100 WBC (Bld) Automated basophil % . [facility] Complete Blood Count Auto Di ffon 12-20-2024 Basophils (Bld) [#/Vol] 0.1 10*3/uL Normal 0.0-0.2 [facility] Comment on above: Result Comment: PERF ORMED BY: [facility] [address] [place] [address] PATHOLOGIST FACILITIES MECHANICAL DESIGN ENGINEER CARLOS A CARD M.D. Performed By: #### B MP, CBC ####[address] Basophils/100 WBC (Bld) 1.0 % Normal . T levon [facility] Comment on above: Performed By: #### B MP, CBC ####[address] Eosinophils (Bld) [#/Vol] 0.1 10*3/uL Normal 0.0-0.45 [facility] Comment on above: Performed By: #### B MP, CBC ####[address] Eosinophils/100 WBC (Bld) 0.7 % Normal . [facility] Comment on above: Performed By: #### B MP, CBC ####[address] Erythrocyte distribution width (RBC) [Ratio] 13.3 % Normal 11.9-15.3 [facility] Comment on above: Performed By: #### B MP, CBC ####[address] Hematocrit (Bld) [Volume fraction] 37.0 % Normal 34.0-46.4 [facility] Comment on above: Performed By: #### B MP, CBC ####[address] Hemoglobin (Bld) [Mass/Vol] 12.3 g/dL Normal 11.8-15.4 [facility] Comment on above: Performed By: #### B MP, CBC ####[address] Lymphocytes (Bld) [#/Vol] 2.0 10*3/uL Normal 1.00-4.8 [facility] Comment on above: Performed By: #### B MP, CBC ####[address] Lymphocytes/100 WBC (Bld) 26.9 % Normal . [facility] Comment on above: Performed By: #### B MP, CBC ####[address] MCH (RBC) [Entitic mass] 31.7 pg Normal 24.7-34.3 [facility] Comment on above: Performed By: #### B MP, CBC ####[address] MCV (RBC) [Entitic vol] 95.2 fL Normal 80-100 [facility] Comment on above: Performed By: #### B MP, CBC ####[address] Mean Corpuscular HGB Conc 33.3 g/dL Normal 32.0-35.0 [facility] Comment on above: Performed By: #### B MP, CBC ####[address] Monocytes (Bld) [#/Vol] 0.5 10*3/uL Normal 0.0-0.8 [facility] Comment on above: Performed By: #### B MP, CBC ####[address] Monocytes/100 WBC (Bld) 7.2 % Normal . T [facility] Comment on above: Performed By: #### B MP, CBC ####[address] [address] [facility] Neutrophils (Bld) [#/Vol] 4.7 10*3/uL Normal 1.8-7.7 [facility] Comment on above: Performed By: #### B MP, CBC ####[address] Neutrophils/100 WBC (Bld) 64.2 % Normal . [facility] Comment on above: Performed By: #### B MP, CBC ####[address] NRBC% 0.1 /100{WBC} Normal 0-0.5 [facility] Comment on above: Performed By: #### B MP, CBC ####[place] [id number] [facility] Platelet mean volume (Bld) [Entitic vol] 9.4 fL Normal 6.3-10.7 [facility] Comment on above: Performed By: #### B MP, CBC ####[place] [id number] [facility] Platelets (Bld) [#/Vol] 217 10*3/uL Normal 150-450 [facility] Comment on above: Performed By: #### B MP, CBC ####[address] [address] [facility] RBC (Bld) [#/Vol] 3.89 10*6/uL Normal 3.60-5.00 [facility] Comment on above: Performed By: #### B MP, CBC ####[place] [id number] [facility] WBC (Bld) [#/Vol] 7.4 10*3/uL Normal 3.8-11.6 [facility] Comment on above: Performed By: #### B MP, CBC ####[facility] [id number] [place] [address] [place] Eosinophils Auto (Bld) [#/Vo l]Ordered By: Alivia Arana on 12-20-2024 Eosinophils (Bld) [#/Vol] Automated eosinophil count 0.0-0.45 [facility] Eosinophils/100 WBC Auto (Bl d)Ordered By: Alivia Arana on 12-20-2024 Eosinophils/100 WBC (Bld) Automated eosinophil % . [facility] Erythrocyte distribution wid th Auto (RBC) [Ratio]Ordered By: Alivia Arana on 12-20-2024 Erythrocyte distribution width (RBC) [Ratio] Erythrocyte distribution width [Ratio] by Automated count 11.9-15.3 [facility] Glucose Poct Glucometerson 0 12-20-2024 Commemt1 Glu2: Cleaned Meter Normal [facility] Comment on above: Result Comment: PERF ORMED BY: [facility] [address] [place] [address] PATHOLOGIST FACILITIES MECHANICAL DESIGN ENGINEER CARLOS A CARD M.D. Performed By: #### G LULS #### Point of Care testing , Glucose [Mass/Vol] 141 mg/dL Normal [facility] Comment on above: Result Comment: [place] Glucose Reference Range is dependent on time and content of last meal. Glucose of more than 200 mg/dL in a nonstressed, ambulatory subject supports the diagnosis of Diabetes Mellitus. Performed By: #### G LULS #### Point of Care testing , Glucose [Mass/Vol] 156 mg/dL Normal [facility] Comment on above: Result Comment: [place] Glucose Reference Range is dependent on time and content of last meal. Glucose of more than 200 mg/dL in a nonstressed, ambulatory subject supports the diagnosis of Diabetes Mellitus. PERFORMED BY: [facility] [address] [place] [address] PATHOLOGIST FACILITIES MECHANICAL DESIGN ENGINEER CARLOS A CARD M.D. Performed By: #### G LULS #### Point of Care testing , Glucose [Mass/Vol] 158 mg/dL Normal [facility] Comment on above: Result Comment: [facility] Glucose Reference Range is dependent on time and content of last meal. Glucose of more than 200 mg/dL in a nonstressed, ambulatory subject supports the diagnosis of Diabetes Mellitus. PERFORMED BY: [facility] [address] [facility] [place] [address] PATHOLOGIST FACILITIES MECHANICAL DESIGN ENGINEER CARLOS A CARD M.D. Performed By: #### G LULS ####Point of Care testing, Glucose [Mass/Vol] 133 mg/dL Normal [facility] Comment on above: Result Comment: [facility] Glucose Reference Range is dependent on time and content of last meal. Glucose of more than 200 mg/dL in a nonstressed, ambulatory subject supports the diagnosis of Diabetes Mellitus. PERFORMED BY: [facility] [address] [facility] [place] [address] PATHOLOGIST FACILITIES MECHANICAL DESIGN ENGINEER CARLOS A CARD M.D. Performed By: #### G LUHE ####Point of Care testing, Hematocrit Auto (Bld) [Volum e fraction]Ordered By: Alivia Arana on 12-20-2024 Hematocrit (Bld) [Volume fraction] Hematocrit [Volume Fraction] of Blood by Automated count 34.0-46.4 [facility] Hemoglobin [Mass/volume] in BloodOrdered By: Alivia Arana on 12-20-2024 Hemoglobin (Bld) [Mass/Vol] Hemoglobin [Mass/volume] in Blood 11.8-15.4 [facility] Leukocytes [#/volume] correc dominick for nucleated erythrocytes in Blood by Automated counOrdered By: Alivia Arana on 12-20-2024 WBC corrected for nucl RBC Auto (Bld) [#/Vol] Leukocytes [#/volume] corrected for nucleated erythrocytes in Blood by Automated coun 3.8-11.6 [facility] Lymphocytes Auto (Bld) [#/Vo l]Ordered By: Alivia Arana on 12-20-2024 Lymphocytes (Bld) [#/Vol] Lymphocytes [#/volume] in Blood by Automated count 1.00-4.8 [facility] Lymphocytes/100 WBC Auto (Bl d)Ordered By: Alivia Arana on 12-20-2024 Lymphocytes/100 WBC (Bld) Lymphocytes/100 leukocytes in Blood by Automated count . [facility] MCH Auto (RBC) [Entitic mass ]Ordered By: Alivia Arana on 12-20-2024 MCH (RBC) [Entitic mass] MCH [Entitic ma ss] by Automated count 24.7-34.3 [facility] MCHC Auto (RBC) [Mass/Vol]Or dered By: Alivia Arana on 12-20-2024 MCHC (RBC) [Mass/Vol] MCHC [Mass/volume] by Automated count 32.0-35.0 [facility] MCV Auto (RBC) [Entitic vol] Ordered By: Alivia Arana on 12-20-2024 MCV (RBC) [Entitic vol] MCV [Entitic vol ume] by Automated count 80-100 [facility] Monocytes Auto (Bld) [#/Vol] Ordered By: Alivia Arana on 12-20-2024 Monocytes (Bld) [#/Vol] Automated blood monocyte count 0.0-0.8 [facility] Monocytes/100 WBC Auto (Bld) Ordered By: Alivia Arana on 12-20-2024 Monocytes/100 WBC (Bld) Automated monocyte % . [facility] Neutrophils Auto (Bld) [#/Vo l]Ordered By: Alivia Arana on 12-20-2024 Neutrophils (Bld) [#/Vol] Neutrophils [#/volume] in Blood by Automated count 1.8-7.7 [facility] Neutrophils/100 WBC Auto (Bl d)Ordered By: Alivia Arana on 12-20-2024 Neutrophils/100 WBC (Bld) Automated neutrophil % . [facility] Nucleated erythrocytes [Pres ence] in Blood by Automated countOrdered By: Alivia Arana on 12-20-2024 Nucleated RBC Auto Ql (Bld) Nucleated erythrocytes [Presence] in Blood by Automated count 0-0.5 [facility] Platelet mean volume Auto (B ld) [Entitic vol]Ordered By: Alivia Arana on 12-20-2024 Platelet mean volume (Bld) [Entitic vol] Platelet mean volume [Entitic volume] in Blood by Automated count 6.3-10.7 [facility] Platelets Auto (Bld) [#/Vol] Ordered By: Alivia Arana on 12-20-2024 Platelets (Bld) [#/Vol] Platelets [#/vol ume] in Blood by Automated count 150-450 [facility] RBC Auto (Bld) [#/Vol]Ordere d By: Alivia Arana on 12-20-2024 RBC (Bld) [#/Vol] Erythrocytes [#/volu me] in Blood by Automated count 3.60-5.00 [facility] WBC Auto (Bld) [#/Vol]Ordere d By: Alivia Arana on 12-20-2024 WBC (Bld) [#/Vol] Leukocytes [#/volume ] in Blood by Automated count 3.8-11.6 [facility] Alanine aminotransferase [En zymatic activity/volume] in Serum or PlasmaOrdered By: Louis Mcadams on 12-19-2024 ALT [Catalytic activity/Vol] Alanine aminotransferase [Enzymatic activity/volume] in Serum or Plasma 7-52 [facility] Albumin [Mass/volume] in Ser um or Plasma by Bromocresol green (BCG) dye binding methoOrdered By: Louis Mcadams on 12-19-2024 Albumin BCG dye [Mass/Vol] Albumin [Mass/volume] in Serum or Plasma by Bromocresol green (BCG) dye binding metho 3.5-5.7 [facility] Alkaline phosphatase [Enzyma tic activity/volume] in Serum or PlasmaOrdered By: Louis Mcadams on 12-19-2024 ALP [Catalytic activity/Vol] Alkaline phosphatase [Enzymatic activity/volume] in Serum or Plasma 34-104 [facility] Aspartate aminotransferase [ Enzymatic activity/volume] in Serum or PlasmaOrdered By: Louis Mcadams on 12-19-2024 AST [Catalytic activity/Vol] Aspartate aminotransferase [Enzymatic activity/volume] in Serum or Plasma Low 13-39 [facility] B-Type Natriuretic Peptideon 12-19-2024 Natriuretic peptide B (Bld) [Mass/Vol] 376.0 pg/mL High 5-100 [facility] Comment on above: Result Comment: PERF ORMED BY: [facility] [address] [place] [address] PATHOLOGIST FACILITIES MECHANICAL DESIGN ENGINEER CARLOS A CARD M.D. Performed By: #### G MANISHA #### Point of Care testing , Basophils Auto (Bld) [#/Vol] Ordered By: Louis Mcadams on 12-19-2024 Basophils (Bld) [#/Vol] Automated basophil count 0.0-0.2 [facility] Basophils/100 WBC Auto (Bld) Ordered By: Louis Mcadams on 12-19-2024 Basophils/100 WBC (Bld) Automated basophil % . [facility] Bilirubin.total [Mass/volume ] in Serum or PlasmaOrdered By: Louis Mcadams on 12-19-2024 Bilirubin [Mass/Vol] Bilirubin.total [Mass/volume] in Serum or Plasma 0.3-1.0 [facility] COVID Cepheid NegativeOrdere d By: Louis Mcadams on 12-19-2024 SARS-CoV-2 (COVID-19) RNA RADHA+probe Ql (Unsp spec) COVID Cepheid Negative [facility] COVID-19 / Flu A/B / RSV PCR on 12-19-2024 SARS-CoV-2 (COVID-19) RNA RADHA+probe Ql (Unsp spec) COVID-19 Cepheid Result Negative for SARS-CoV-2 RNA by RT-PCR Flu A Cepheid Result Negative for Flu A RNA by RT-PCR Flu B Cepheid Result Negative for Flu B RNA by RT-PCR RSV Cepheid Result Negative for RSV RNA by RT-PCR COVID19 Blank Space ---- Reference: Negative COVID19 Blank Space ---- Cepheid Disclaimer The Cepheid Xpert Xpress CoV-2/Flu/RSV Plus has Cepheid Disclaimer not been FDA cleared or approved; this test has Cepheid Disclaimer been authorized by FDA under an EUA for use by Cepheid Disclaimer authorized laboratories; this test has been Cepheid Disclaimer authorized only for the simultaneous qualitative Cepheid Disclaimer detection and differentiation of nucleic acids from Cepheid Disclaimer SARS-CoV-2, influenza A, influenza B, and Cepheid Disclaimer respiratory syncytial virus (RSV), and not for any Cepheid Disclaimer other viruses or pathogens; and this test is only Cepheid Disclaimer authorized for the duration of the declaration that Cepheid Disclaimer circumstances exist justifying the authorization of Cepheid Disclaimer emergency use of in vitro diagnostic tests for Cepheid Disclaimer detection and/or diagnosis of COVID-19 under Cepheid Disclaimer Section 564(b)(1) of the Act, 21 U.S.C. 360bbb- Cepheid Disclaimer 3(b)(1), unless the authorization is terminated or Cepheid Disclaimer revoked sooner. PERFORMED BY: [facility] [address] [place] [address] PATHOLOGIST FACILITIES MECHANICAL DESIGN ENGINEER CARLOS A CARD M.D. Normal [facility] Comment on above: Performed By: #### G LULS #### Point of Care testing , Calcium [Mass/volume] in Ser um or PlasmaOrdered By: Louis Mcadams on 12-19-2024 Calcium [Mass/Vol] Calcium [Mass/volume ] in Serum or Plasma Low 8.6-10.3 [facility] Carbon dioxide, total [Moles /volume] in Serum or PlasmaOrdered By: Louis Mcadams on 12-19-2024 CO2 [Moles/Vol] Carbon dioxide, tota l [Moles/volume] in Serum or Plasma 21.0-31.0 [facility] Cepheid COVID PCR Negativeon 12-19-2024 SARS-CoV-2 (COVID-19) RNA RADHA+probe Ql (Unsp spec) Negative Normal Negative [facility] Comment on above: Result Comment: This is a duplicate Cepheid Xpert Xpress CoV-2/Flu/RSV Plus RNA by RT-PCR result to be used for statistical tracking purpose only. PERFORMED BY: [facility] [address] [place] [address] PATHOLOGIST FACILITIES MECHANICAL DESIGN ENGINEER CARLOS A CARD M.D. Performed By: #### G LULS #### Point of Care testing , Chloride [Moles/volume] in S amanda or PlasmaOrdered By: Louis Mcadams on 12-19-2024 Chloride [Moles/Vol] Chloride [Moles/vol ume] in Serum or Plasma High 98-107 [facility] Complete Blood Count Auto Di ffon 12-19-2024 Basophils (Bld) [#/Vol] 0.1 10*3/uL Normal 0.0-0.2 [facility] Comment on above: Result Comment: PERF ORMED BY: [facility] [address] [place] [address] PATHOLOGIST FACILITIES MECHANICAL DESIGN ENGINEER CARLOS A CARD M.D. Performed By: #### G LULS #### Point of Care testing , Basophils/100 WBC (Bld) 1.3 % Normal . [facility] Comment on above: Performed By: #### G LULS #### Point of Care testing , Eosinophils (Bld) [#/Vol] 0.1 10*3/uL Normal 0.0-0.45 [facility] Comment on above: Performed By: #### G LULS #### Point of Care testing , Eosinophils/100 WBC (Bld) 0.9 % Normal . [facility] Comment on above: Performed By: #### G LULS #### Point of Care testing , Erythrocyte distribution width (RBC) [Ratio] 12.8 % Normal 11.9-15.3 [facility] Comment on above: Performed By: #### G LULS #### Point of Care testing , Hematocrit (Bld) [Volume fraction] 35.6 % Normal 34.0-46.4 [facility] Comment on above: Performed By: #### G LULS #### Point of Care testing , Hemoglobin (Bld) [Mass/Vol] 11.7 g/dL Low 11.8-15.4 [facility] Comment on above: Performed By: #### G LULS #### Point of Care testing , Lymphocytes (Bld) [#/Vol] 2.3 10*3/uL Normal 1.00-4.8 [facility] Comment on above: Performed By: #### G LULS #### Point of Care testing , Lymphocytes/100 WBC (Bld) 27.1 % Normal . [facility] Comment on above: Performed By: #### G LULS #### Point of Care testing , MCH (RBC) [Entitic mass] 31.2 pg Normal 24.7-34.3 [facility] Comment on above: Performed By: #### G LULS #### Point of Care testing , MCV (RBC) [Entitic vol] 94.6 fL Normal 80-100 [facility] Comment on above: Performed By: #### G LULS #### Point of Care testing , Mean Corpuscular HGB Conc 33.0 g/dL Normal 32.0-35.0 [facility] Comment on above: Performed By: #### G LULS #### Point of Care testing , Monocytes (Bld) [#/Vol] 0.6 10*3/uL Normal 0.0-0.8 [facility] Comment on above: Performed By: #### G LULS #### Point of Care testing , Monocytes/100 WBC (Bld) 21.81 % High 0.00-20.00 [facility] Comment on above: Result Comment: For adults in ED, MDW > 20.0 may be associated with a higher risk of sepsis during the first 12 hrs of hospital admission Performed By: #### G LULS #### Point of Care testing , Monocytes/100 WBC (Bld) 7.0 % Normal . [facility] Comment on above: Performed By: #### G LULS #### Point of Care testing , Neutrophils (Bld) [#/Vol] 5.3 10*3/uL Normal 1.8-7.7 [facility] Comment on above: Performed By: #### G LULS #### Point of Care testing , Neutrophils/100 WBC (Bld) 63.7 % Normal . [facility] Comment on above: Performed By: #### G ALTHEALS #### Point of Care testing , NRBC% 0.2 /100{WBC} Normal 0-0.5 [facility] Comment on above: Performed By: #### G ALTHEALS #### Point of Care testing , Platelet mean volume (Bld) [Entitic vol] 9.3 fL Normal 6.3-10.7 [facility] Comment on above: Performed By: #### G ALTHEALS #### Point of Care testing , Platelets (Bld) [#/Vol] 210 10*3/uL Normal 150-450 [facility] Comment on above: Performed By: #### G ALTHEALS #### Point of Care testing , RBC (Bld) [#/Vol] 3.76 10*6/uL Normal 3.60-5.00 [facility] Comment on above: Performed By: #### G ALTHEALS #### Point of Care testing , WBC (Bld) [#/Vol] 8.4 10*3/uL Normal 3.8-11.6 [facility] Comment on above: Performed By: #### G ALTHEALS #### Point of Care testing , Comprehensive Metabolic Pane natalia 12-19-2024 Albumin [Mass/Vol] 3.7 g/dL Normal 3.5-5.7 [facility] Comment on above: Performed By: #### G ALTHEALS #### Point of Care testing , Albumin/Globulin [Mass ratio] 1.3 {ratio} Normal [facility] Comment on above: Performed By: #### G ALTHEALS #### Point of Care testing , ALP [Catalytic activity/Vol] 88 U/L Normal 34-104 [facility] Comment on above: Performed By: #### G ALTHEALS #### Point of Care testing , ALT [Catalytic activity/Vol] 7 U/L Normal 7-52 [facility] Comment on above: Performed By: #### G ALTHEALS #### Point of Care testing , Anion gap [Moles/Vol] 10.1 mmol/L Normal 6.0-15.0 [facility] Comment on above: Performed By: #### G LULS #### Point of Care testing , AST [Catalytic activity/Vol] 11 U/L Low 13-39 [facility] Comment on above: Performed By: #### G LULS #### Point of Care testing , Bilirubin [Mass/Vol] 0.5 mg/dL Normal 0.3-1.0 [facility] Comment on above: Performed By: #### G LULS #### Point of Care testing , Calcium [Mass/Vol] 8.4 mg/dL Low 8.6-10.3 [facility] Comment on above: Performed By: #### G LULS #### Point of Care testing , Chloride [Moles/Vol] 111 mmol/L High 98-107 [facility] Comment on above: Performed By: #### G LULS #### Point of Care testing , CO2 [Moles/Vol] 22.1 mmol/L Normal 21.0-31.0 [facility] Comment on above: Performed By: #### G LULS #### Point of Care testing , Creatinine [Mass/Vol] 2.38 mg/dL High 0.60-1.20 [facility] Comment on above: Performed By: #### G LULS #### Point of Care testing , Creatinine Clr Calc Pharmacy 32.39 Normal [facility] Comment on above: Performed By: #### G LULS #### Point of Care testing , Estimated GFR 19.870 mL/Min Normal [facility] Comment on above: Performed By: #### G LULS #### Point of Care testing , Globulin (S) [Mass/Vol] 2.8 g/dL Normal T [facility] Comment on above: Performed By: #### G LULS #### Point of Care testing , Glucose [Mass/Vol] 144 mg/dL High 70-100 [facility] Comment on above: Result Comment: [place] [facility] Glucose Reference Range is dependent on time and content of last meal. Glucose of more than 200 mg/dL in a nonstressed, ambulatory subject supports the diagnosis of Diabetes Mellitus. ADA recommended reference range Performed By: #### G LULS #### Point of Care testing , Potassium [Moles/Vol] 4.2 mmol/L Normal 3.5-5.1 [facility] Comment on above: Performed By: #### G LULS #### Point of Care testing , Protein [Mass/Vol] 6.5 g/dL Normal 6.4-8.9 [facility] Comment on above: Performed By: #### G LULS #### Point of Care testing , Sodium [Moles/Vol] 139 mmol/L Normal 136-145 [facility] Comment on above: Performed By: #### G LULS #### Point of Care testing , Urea nitrogen [Mass/Vol] 26 mg/dL High 7-25 [facility] Comment on above: Performed By: #### G LULS #### Point of Care testing , Creatine Kinaseon 12-19-2024 CK [Catalytic activity/Vol] 32 U/L Normal 30-223 [facility] Comment on above: Performed By: #### G LULS #### Point of Care testing , Creatine kinase [Enzymatic a ctivity/volume] in Serum or PlasmaOrdered By: Louis Mcadams on 12-19-2024 CK [Catalytic activity/Vol] Creatine kinase [Enzymatic activity/volume] in Serum or Plasma 30-223 [facility] Creatinine [Mass/volume] in Serum or PlasmaOrdered By: Louis Mcadams on 12-19-2024 Creatinine [Mass/Vol] Creatinine [Mass/v olume] in Serum or Plasma High 0.60-1.20 [facility] ECG 12 lead ECGon 12-19-2024 ECG 12 lead ECG [facility] [place] [address] Electrocardiograph Report Signed Patient: Hailee Trivedi MR#: [id number] 306 : 1940 Acct:[id number] Age/Sex: 84 / F ADM Date: 12/19/24 Loc: Room: [address] [place] [address] Type: ADM IN Attending Dr: Jonathan Valenzuela MD Ordering Provider: Louis Mcadams DO Date of Service: 12/19/2404/07/1150 ECG/ECG 12 lead ECG: Shortness of Breath/Dyspnea Copies to: Test Reason : Blood Pressure : 150/89 mmHG Vent. Rate : 80 BPM Atrial Rate : 102 BPM P-R Int : * ms QRS Dur : 88 ms QT Int : 404 ms P-R-T Axes : * 55 87 degrees QTcB Int : 465 ms Atrial fibrillation Nonspecific T wave abnormality Abnormal ECG When compared with ECG of 18-Sep-2024 17:44, No significant change was found Confirmed by LOUIS MCADAMS DO ([id number]) on 12/20/2024 4:24:52 PM Referred By: Electronically Signed By: LOUIS MCADAMS DO Transcribed By: MUS Signed By Louis Mcadams DO 12/20 1624 Normal [facility] Eosinophils Auto (Bld) [#/Vo l]Ordered By: Louis Mcadams on 12-19-2024 Eosinophils (Bld) [#/Vol] Automated eosinophil count 0.0-0.45 [facility] Eosinophils/100 WBC Auto (Bl d)Ordered By: Louis Mcadams on 12-19-2024 Eosinophils/100 WBC (Bld) Automated eosinophil % . [facility] Erythrocyte distribution wid th Auto (RBC) [Ratio]Ordered By: Louis Mcadams on 12-19-2024 Erythrocyte distribution width (RBC) [Ratio] Erythrocyte distribution width [Ratio] by Automated count 11.9-15.3 [facility] Globulin Calc (S) [Mass/Vol] Ordered By: Louis Mcadams on 12-19-2024 Globulin (S) [Mass/Vol] Serum globulin measurement by calculation (mass/volume) [facility] Glucose Poct Glucometerson 0 12-19-2024 Glucose [Mass/Vol] 143 mg/dL Normal [facility] Comment on above: Result Comment: [facility] Glucose Reference Range is dependent on time and content of last meal. Glucose of more than 200 mg/dL in a nonstressed, ambulatory subject supports the diagnosis of Diabetes Mellitus. PERFORMED BY: [facility] [address] [place] [address] PATHOLOGIST FACILITIES MECHANICAL DESIGN ENGINEER CARLOS A CARD M.D. Performed By: #### G LULS #### Point of Care testing , Glucose [Mass/volume] in Ser um or PlasmaOrdered By: Louis Mcadams on 12-19-2024 Glucose [Mass/Vol] Glucose [Mass/volume ] in Serum or Plasma High 70-100 [facility] Hematocrit Auto (Bld) [Volum e fraction]Ordered By: Louis Mcadams on 12-19-2024 Hematocrit (Bld) [Volume fraction] Hematocrit [Volume Fraction] of Blood by Automated count 34.0-46.4 [facility] Hemoglobin [Mass/volume] in BloodOrdered By: Louis Mcadams on 12-19-2024 Hemoglobin (Bld) [Mass/Vol] Hemoglobin [Mass/volume] in Blood Low 11.8-15.4 [facility] INR in Platelet poor plasma by Coagulation assayOrdered By: Louis Mcadams on 12-19-2024 INR Coag (PPP) [Relative time] INR in Platelet poor plasma by Coagulation assay [facility] Leukocytes [#/volume] correc dominick for nucleated erythrocytes in Blood by Automated counOrdered By: Louis Mcadams on 12-19-2024 WBC corrected for nucl RBC Auto (Bld) [#/Vol] Leukocytes [#/volume] corrected for nucleated erythrocytes in Blood by Automated coun 3.8-11.6 [facility] Lipaseon 12-19-2024 Lipase [Catalytic activity/Vol] 35.0 U/L Normal 11.0-82.0 [facility] Comment on above: Result Comment: PERF ORMED BY: [facility] [address] [place] [address] PATHOLOGIST FACILITIES MECHANICAL DESIGN ENGINEER CARLOS A CARD M.D. Performed By: #### G LULS #### Point of Care testing , Lipase [Enzymatic activity/v olume] in Serum or PlasmaOrdered By: Louis Mcadams on 12-19-2024 Lipase [Catalytic activity/Vol] Lipase [Enzymatic activity/volume] in Serum or Plasma 11.0-82.0 [facility] Lymphocytes Auto (Bld) [#/Vo l]Ordered By: Louis Mcadams on 12-19-2024 Lymphocytes (Bld) [#/Vol] Lymphocytes [#/volume] in Blood by Automated count 1.00-4.8 [facility] Lymphocytes/100 WBC Auto (Bl d)Ordered By: Louis Mcadams on 12-19-2024 Lymphocytes/100 WBC (Bld) Lymphocytes/100 leukocytes in Blood by Automated count . [facility] MCH Auto (RBC) [Entitic mass ]Ordered By: Louis Mcadams on 12-19-2024 MCH (RBC) [Entitic mass] MCH [Entitic ma ss] by Automated count 24.7-34.3 [facility] MCHC Auto (RBC) [Mass/Vol]Or dered By: Louis Mcadams on 12-19-2024 MCHC (RBC) [Mass/Vol] MCHC [Mass/volume] by Automated count 32.0-35.0 [facility] MCV Auto (RBC) [Entitic vol] Ordered By: Louis Mcadams on 12-19-2024 MCV (RBC) [Entitic vol] MCV [Entitic vol ume] by Automated count 80-100 [facility] Monocyte distribution width [Entitic volume] in Blood by AutomatedOrdered By: Louis Mcadams on 12-19-2024 Monocyte distribution width Auto (Bld) [Entitic vol] Monocyte distribution width [Entitic volume] in Blood by Automated High 0.00-20.00 [facility] Monocytes Auto (Bld) [#/Vol] Ordered By: Louis Mcadams on 12-19-2024 Monocytes (Bld) [#/Vol] Automated blood monocyte count 0.0-0.8 [facility] Monocytes/100 WBC Auto (Bld) Ordered By: Louis Mcadams on 12-19-2024 Monocytes/100 WBC (Bld) Automated monocyte % . [facility] Natriuretic peptide B [Mass/ Vol]Ordered By: Louis Mcadams on 12-19-2024 Natriuretic peptide B (Bld) [Mass/Vol] BNP ser/plas High 5-100 [facility] Neutrophils Auto (Bld) [#/Vo l]Ordered By: Louis Mcadams on 12-19-2024 Neutrophils (Bld) [#/Vol] Neutrophils [#/volume] in Blood by Automated count 1.8-7.7 [facility] Neutrophils/100 WBC Auto (Bl d)Ordered By: Louis Mcadams on 12-19-2024 Neutrophils/100 WBC (Bld) Automated neutrophil % . [facility] No Panel InformationOrdered By: Louis Mcadams on 12-19-2024 19.870 mL/Min [facility] 32.39 [facility] Nucleated erythrocytes [Pres ence] in Blood by Automated countOrdered By: Louis Mcadams on 12-19-2024 Nucleated RBC Auto Ql (Bld) Nucleated erythrocytes [Presence] in Blood by Automated count 0-0.5 [facility] Platelet mean volume Auto (B ld) [Entitic vol]Ordered By: Louis Mcadams on 12-19-2024 Platelet mean volume (Bld) [Entitic vol] Platelet mean volume [Entitic volume] in Blood by Automated count 6.3-10.7 [facility] Platelets Auto (Bld) [#/Vol] Ordered By: Louis Mcadams on 12-19-2024 Platelets (Bld) [#/Vol] Platelets [#/vol ume] in Blood by Automated count 150-450 [facility] Potassium [Moles/volume] in Serum or PlasmaOrdered By: Louis Mcadams on 12-19-2024 Potassium [Moles/Vol] Potassium [Moles/v olume] in Serum or Plasma 3.5-5.1 [facility] Protein [Mass/volume] in Ser um or PlasmaOrdered By: Louis Mcadams on 12-19-2024 Protein [Mass/Vol] Protein [Mass/volume ] in Serum or Plasma 6.4-8.9 [facility] Prothrombin Time INRon 12-19 INR Coag (PPP) [Relative time] 1.3 {INR} Normal [facility] Comment on above: Result Comment: INR Therapeutic Range A) Pre- [...] with mechanical heart valves: 3 - 4.5 PERFORMED BY: [facility] [place] [address] PATHOLOGIST FACILITIES MECHANICAL DESIGN ENGINEER CARLOS A CARD M.D. Performed By: #### G LULS #### Point of Care testing , PT Coag (PPP) [Time] 14.5 s High 9.0-12.9 [facility] Comment on above: Result Comment: A he matocrit value greater than 55% may lead to inaccurate results in coagulation testing. Patients having hematocrit values >55% require a special collection tube for coagulation studies. Please contact the laboratory at [phone] for redraw instructions. Performed By: #### G LULS #### Point of Care testing , Prothrombin time (PT)Ordered By: Louis Mcadams on 12-19-2024 PT Coag (PPP) [Time] Prothrombin time (PT) High 9.0- 12.9 [facility] RBC Auto (Bld) [#/Vol]Ordere d By: Louis Mcadams on 12-19-2024 RBC (Bld) [#/Vol] Erythrocytes [#/volu me] in Blood by Automated count 3.60-5.00 [facility] Serum or plasma albumin/glob ulin mass ratioOrdered By: Louis Mcadams on 12-19-2024 Albumin/Globulin [Mass ratio] Serum or plasma albumin/globulin mass ratio [facility] Serum or plasma anion gap de terminationOrdered By: Louis Mcadams on 12-19-2024 Anion gap [Moles/Vol] Serum or plasma an ion gap determination 6.0-15.0 [facility] Sodium [Moles/volume] in Ser um or PlasmaOrdered By: Louis Mcadams on 12-19-2024 Sodium [Moles/Vol] Sodium [Moles/volume ] in Serum or Plasma 136-145 [facility] Troponin I High Sensitivityo n 12-19-2024 Troponin I High Sensitivity 4 Normal 0-15 [facility] Comment on above: Result Comment: The Troponin units of report have been changed to meet the Chest Pain Accreditation requirement, element EC5.M1l2. Troponin units are changed from pg/ml to ng/L. Also, the decimal is removed and results are in whole numbers. PERFORMED BY: [facility] [address] [place] [address] PATHOLOGIST FACILITIES MECHANICAL DESIGN ENGINEER CARLOS A CARD M.D. Performed By: #### G LULS #### Point of Care testing , Troponin I.cardiac [Mass/vol ume] in Serum or Plasma by Detection limit <= 0.01 ng/Ordered By: Louis Mcadams on 12-19-2024 Troponin I.cardiac DL <= 0.01 ng/mL [Mass/Vol] Troponin I.cardiac [Mass/volume] in Serum or Plasma by Detection limit <= 0.01 ng/ 0-15 [facility] Urea nitrogen [Mass/volume] in Serum or PlasmaOrdered By: Louis Mcadams on 12-19-2024 Urea nitrogen [Mass/Vol] Urea nitrogen [Mass/volume] in Serum or Plasma High 7-25 [facility] WBC Auto (Bld) [#/Vol]Ordere d By: Louis Mcadams on 12-19-2024 WBC (Bld) [#/Vol] Leukocytes [#/volume ] in Blood by Automated count 3.8-11.6 [facility] X-ray reportOrdered By: Ronal Palm on 12-19-2024 Study report [facility] XR chest 2V*on 12-19-2024 XR chest 2V* [facility] [place] [address] XRay Report Signed Patient: Hailee Trivedi MR#: [id number] 306 : 1940 Acct:[id number] Age/Sex: 84 / F ADM Date: 12/19/24 Loc: ER Room: Type: [facility] ER Attending Dr: Copies to: Louis Mcadams DO Ordering Provider: Louis Mcadams DO Date of Service: 12/19/24 XR/XR chest 2V*: Shortness of Breath/Dyspnea Chest 2 views CLINICAL HISTORY: Shortness of breath with exertion. Swelling of lower extremities. COMPARISON: Chest 09/17/2024 FINDINGS: Right-sided port is in place. Heart is normal in size. Mild interstitial changes. No consolidation or pneumothorax. Trace bilateral pleural effusions seen on the lateral view. No free air. XR/XR chest 2V* IMPRESSION: MILD INTERSTITIAL CHANGES WITH TRACE PLEURAL EFFUSIONS. NO CONSOLIDATION TO SUGGEST PNEUMONIA. Impression dictated by: Pj Palm Jr., D.OBritt12/19/2024 2:57 PM Dictation Location: [place] [address] Transcribed By: [facility] 12/19/24 2290 Dictated By: Pj Palm Jr DO 12/19/24 1456 Signed By: 12/19/24 1457 Normal [facility] Albumin [Mass/volume] in Ser um or Plasma by Bromocresol green (BCG) dye binding methoOrdered By: Akin Suarez on 12-12-2024 Albumin BCG dye [Mass/Vol] Albumin [Mass/volume] in Serum or Plasma by Bromocresol green (BCG) dye binding metho 3.5-5.7 [facility] Appearance of UrineOrdered B y: Akin Suarez on 12-12-2024 Appearance (U) Urine appearance Clear [facility] Bacteria [Presence] in Urine by AutomatedOrdered By: Akin Suarez on 12-12-2024 Bacteria Auto Ql (U) Bacteria [Presence] in Urine by Automated None Seen [facility] Bilirubin Test strip Ql (U)O rdered By: Akin Suarez on 12-12-2024 Bilirubin Ql (U) Bilirubin.total [Presence] in Urine by Test strip Negative [facility] Calcium [Mass/volume] in Ser um or PlasmaOrdered By: Akin Suarez on 12-12-2024 Calcium [Mass/Vol] Calcium [Mass/volume ] in Serum or Plasma 8.6-10.3 [facility] Calcium oxalate crystals [Pr esence] in Urine by Computer assisted methodOrdered By: Akin Suarez on 12-12-2024 Calcium oxalate crystals Computer assisted Ql (U) Calcium oxalate crystals [Presence] in Urine by Computer assisted method [facility] Carbon dioxide, total [Moles /volume] in Serum or PlasmaOrdered By: Akin Suarez on 12-12-2024 CO2 [Moles/Vol] Carbon dioxide, tota l [Moles/volume] in Serum or Plasma 21.0-31.0 [facility] Chloride [Moles/volume] in S amanda or PlasmaOrdered By: Akin Suarez on 12-12-2024 Chloride [Moles/Vol] Chloride [Moles/vol ume] in Serum or Plasma High 98-107 [facility] Color Auto (U)Ordered By: Ab dorota Suarez on 12-12-2024 Color (U) Color of Urine by Auto Yellow [facility] Creatinine [Mass/volume] in Serum or PlasmaOrdered By: Akin Suarez on 12-12-2024 Creatinine [Mass/Vol] Creatinine [Mass/v olume] in Serum or Plasma High 0.60-1.20 [facility] Creatinine [Mass/volume] in UrineOrdered By: Akin Suarez on 12-12-2024 Creatinine (U) [Mass/Vol] Creatinine [Mass/volume] in Urine [facility] Crystals [Presence] in Urine by AutomatedOrdered By: Akin Suarez on 12-12-2024 Crystals Auto Ql (U) Crystals [Presence] in Urine by Automated [facility] Dipstick and Microscopicon 0 12-12-2024 Appearance (U) Clear Normal Clear [facility] Comment on above: Performed By: #### G LULS #### Point of Care testing , Bacteria,Urine Rare Normal None Seen [facility] Comment on above: Performed By: #### G LULS #### Point of Care testing , Bilirubin,Urine Negative Normal Negative [facility] Comment on above: Performed By: #### G LULS #### Point of Care testing , Calcium Oxalate Crystals,Urine Rare Normal [facility] Comment on above: Performed By: #### G LULS #### Point of Care testing , Color (U) Light-Yellow Normal Yellow [facility] Comment on above: Performed By: #### G LULS #### Point of Care testing , Glucose Ql (U) Normal Normal Normal [facility] Comment on above: Performed By: #### G LULS #### Point of Care testing , Hyaline Casts,Urine None Normal 0-8 [facility] Comment on above: Performed By: #### G LULS #### Point of Care testing , Ketones Ql (U) Negative Normal Negative [facility] Comment on above: Performed By: #### G LULS #### Point of Care testing , Leukocyte esterase Test strip Ql (U) 1+ High Negative [facility] Comment on above: Performed By: #### G LULS #### Point of Care testing , Mucus,Urine Rare Normal [facility] Comment on above: Result Comment: PERF ORMED BY: [facility] [place] [address] PATHOLOGIST FACILITIES MECHANICAL DESIGN ENGINEER CARLOS A CARD M.D. Performed By: #### G LULS #### Point of Care testing , Nitrite,Urine Negative Normal Negative [facility] Comment on above: Performed By: #### G LULS #### Point of Care testing , Occult Blood,Urine Negative Normal Negative [facility] Comment on above: Performed By: #### G LULS #### Point of Care testing , Othe Crystals,Urine 1+ Normal [facility] Comment on above: Performed By: #### G LULS #### Point of Care testing , pH (U) 6.5 [pH] Normal 5.0-9.0 [facility] Comment on above: Performed By: #### G LULS #### Point of Care testing , Protein (U) [Mass/Vol] 30 mg/dL High Negative [facility] Comment on above: Performed By: #### G LULS #### Point of Care testing , RBC,Urine 1 [HPF] Normal 0-4 [facility] Comment on above: Performed By: #### G LULS #### Point of Care testing , Specificy [place],Urine 1.016 Normal 1.00 1-1.03 0 [facility] Comment on above: Performed By: #### G LULS #### Point of Care testing , Squamous Epithelial Cell,Urine 3 [HPF] High 0-2 [facility] Comment on above: Performed By: #### G LULS #### Point of Care testing , Urobilinogen,Urine Normal Normal Normal [facility] Comment on above: Performed By: #### G LULS #### Point of Care testing , WBC CLUMP, Urine Occasional High None Seen [facility] Comment on above: Performed By: #### G LULS #### Point of Care testing , WBC,Urine 3 [HPF] Normal 0-4 [facility] Comment on above: Performed By: #### G LULS #### Point of Care testing , Epithelial cells.squamous [# /area] in Urine sediment by Automated countOrdered By: Akin Suarez on 12-12-2024 Epithelial cells.squamous Auto (Urine sed) [#/Area] Epithelial cells.squamous [#/area] in Urine sediment by Automated count High 0-2 [facility] Erythrocyte distribution wid th Auto (RBC) [Ratio]Ordered By: Akin Suarez on 12-12-2024 Erythrocyte distribution width (RBC) [Ratio] Erythrocyte distribution width [Ratio] by Automated count 11.9-15.3 [facility] Erythrocytes [#/area] in Uri ne sediment by Automated countOrdered By: Akin Suarez on 12-12-2024 RBC Auto (Urine sed) [#/Area] Erythrocytes [#/area] in Urine sediment by Automated count 0-4 [facility] Glucose [Mass/volume] in Ser um or PlasmaOrdered By: Akin Suarez on 12-12-2024 Glucose [Mass/Vol] Glucose [Mass/volume ] in Serum or Plasma High 70-100 [facility] Glucose [Mass/volume] in Uri ne by Test stripOrdered By: Akin Suarez on 12-12-2024 Glucose Test strip (U) [Mass/Vol] Glucose [Mass/volume] in Urine by Test strip Normal [facility] Hematocrit Auto (Bld) [Volum e fraction]Ordered By: Akin Suarez on 12-12-2024 Hematocrit (Bld) [Volume fraction] Hematocrit [Volume Fraction] of Blood by Automated count 34.0-46.4 [facility] Hemoglobin Test strip Ql (U) Ordered By: Akin Suarez on 12-12-2024 Hemoglobin Ql (U) Hemoglobin [Presence ] in Urine by Test strip Negative [facility] Hemoglobin [Mass/volume] in BloodOrdered By: Akin Suarez on 12-12-2024 Hemoglobin (Bld) [Mass/Vol] Hemoglobin [Mass/volume] in Blood 11.8-15.4 [facility] Hemogram CBC Without Diffon 12-12-2024 Erythrocyte distribution width (RBC) [Ratio] 13.4 % Normal 11.9-15.3 [facility] Comment on above: Performed By: #### M G, CBCNO, [id number], URIC, RENAL, PTH ####[place] [id number] [facility] Hematocrit (Bld) [Volume fraction] 36.8 % Normal 34.0-46.4 [facility] Comment on above: Performed By: #### M G, CBCNO, [id number], URIC, RENAL, PTH ####[place] [id number] [facility] Hemoglobin (Bld) [Mass/Vol] 12.1 g/dL Normal 11.8-15.4 [facility] Comment on above: Performed By: #### M G, CBCNO, [id number], URIC, RENAL, PTH ####[place] [id number] [facility] MCH (RBC) [Entitic mass] 31.2 pg Normal 24.7-34.3 [facility] Comment on above: Performed By: #### M G, CBCNO, [id number], URIC, RENAL, PTH ####[place] [id number] [facility] MCV (RBC) [Entitic vol] 95.0 fL Normal 80-100 [facility] Comment on above: Performed By: #### M G, CBCNO, [id number], URIC, RENAL, PTH ####[place] [id number] [facility] Mean Corpuscular HGB Conc 32.8 g/dL Normal 32.0-35.0 [facility] Comment on above: Performed By: #### M G, CBCNO, [id number], URIC, RENAL, PTH ####[place] [id number] [facility] Platelet mean volume (Bld) [Entitic vol] 10.3 fL Normal 6.3-10.7 [facility] Comment on above: Result Comment: PERF ORMED BY: [address] [place] [id number] PATHOLOGIST FACILITIES MECHANICAL DESIGN ENGINEER CARLOS A CARD M.D. Performed By: #### M G, CBCNO, [id number], URIC, RENAL, PTH ####[address] Platelets (Bld) [#/Vol] 213 10*3/uL Normal 150-450 [facility] Comment on above: Performed By: #### M G, CBCNO, [id number], URIC, RENAL, PTH ####[address] RBC (Bld) [#/Vol] 3.87 10*6/uL Normal 3.60-5.00 [facility] Comment on above: Performed By: #### M G, CBCNO, [id number], URIC, RENAL, PTH ####[address] WBC (Bld) [#/Vol] 6.4 10*3/uL Normal 3.8-11.6 [facility] Comment on above: Performed By: #### M G, CBCNO, [id number], URIC, RENAL, PTH ####[address] Hyaline casts [#/area] in Ur ine sediment by Automated countOrdered By: Akin Suarez on 12-12-2024 Hyaline casts Auto (Urine sed) [#/Area] Hyaline casts [#/area] in Urine sediment by Automated count 0-8 [facility] Ketones Test strip Ql (U)Ord ered By: Akin Suarez on 12-12-2024 Ketones Ql (U) Ketones [Presence] i n Urine by Test strip Negative [facility] Leukocyte clumps [Presence] in Urine by AutomatedOrdered By: Akin Suarez on 12-12-2024 Leukocyte clumps Auto Ql (U) Leukocyte clumps [Presence] in Urine by Automated High None Seen [facility] Leukocyte esterase [Presence ] in Urine by Test stripOrdered By: Akin Suarez on 12-12-2024 Leukocyte esterase Test strip Ql (U) Leukocyte esterase [Presence] in Urine by Test strip High Negative [facility] Leukocytes [#/area] in Urine sediment by Automated countOrdered By: Akin Suarez on 12-12-2024 WBC Auto (Urine sed) [#/Area] Leukocytes [#/area] in Urine sediment by Automated count 0-4 [facility] Leukocytes [#/volume] correc dominick for nucleated erythrocytes in Blood by Automated counOrdered By: Akin Suarez on 12-12-2024 WBC corrected for nucl RBC Auto (Bld) [#/Vol] Leukocytes [#/volume] corrected for nucleated erythrocytes in Blood by Automated coun 3.8-11.6 [facility] MCH Auto (RBC) [Entitic mass ]Ordered By: Akin Suarez on 12-12-2024 MCH (RBC) [Entitic mass] MCH [Entitic ma ss] by Automated count 24.7-34.3 [facility] MCHC Auto (RBC) [Mass/Vol]Or dered By: Akin Suarez on 12-12-2024 MCHC (RBC) [Mass/Vol] MCHC [Mass/volume] by Automated count 32.0-35.0 [facility] MCV Auto (RBC) [Entitic vol] Ordered By: Akin Suarez on 12-12-2024 MCV (RBC) [Entitic vol] MCV [Entitic vol ume] by Automated count 80-100 [facility] Magnesiumon 12-12-2024 Magnesium [Mass/Vol] 2.0 mg/dL Normal 1.9-2.7 [facility] Comment on above: Performed By: #### M G, CBCNO, [id number], URIC, RENAL, PTH ####[facility] [id number] [place] [id number] [facility] Magnesium [Mass/volume] in S amanda or PlasmaOrdered By: Akin Suarez on 12-12-2024 Magnesium [Mass/Vol] Magnesium [Mass/vol ume] in Serum or Plasma 1.9-2.7 [facility] Mucus [Presence] in Urine by AutomatedOrdered By: Akin Suarez on 12-12-2024 Mucus Auto Ql (U) Mucus [Presence] in Urine by Automated [facility] Nitrite Test strip Ql (U)Ord ered By: Akin Suarez on 12-12-2024 Nitrite Ql (U) Nitrite [Presence] i n Urine by Test strip Negative [facility] No Panel InformationOrdered By: Akin Suarez on 12-12-2024 20.812 mL/Min [facility] 21.90 [facility] Parathyrin.intact [Mass/volu me] in Serum or PlasmaOrdered By: Akin Suarez on 12-12-2024 Parathyrin.intact [Mass/Vol] Parathyrin.intact [Mass/volume] in Serum or Plasma High 12-88 [facility] Parathyroid Hormone [place] 12-12-2024 Parathyroid Hormone Intact 155.9 pg/mL High 1288 [facility] Comment on above: Result Comment: PERF ORMED BY: [facility] [address] [place] [address] PATHOLOGIST FACILITIES MECHANICAL DESIGN ENGINEER CARLOS A CARD M.D. Performed By: #### M G, CBCNO, [id number], URIC, RENAL, PTH ####[facility] [id number] [place] [address] [facility] Phosphate [Mass/volume] in S amanda or PlasmaOrdered By: Akin Suarez on 12-12-2024 Phosphate [Mass/Vol] Phosphate [Mass/vol ume] in Serum or Plasma 2.5-4.5 [facility] Platelet mean volume Auto (B ld) [Entitic vol]Ordered By: Akin Suarez on 12-12-2024 Platelet mean volume (Bld) [Entitic vol] Platelet mean volume [Entitic volume] in Blood by Automated count 6.3-10.7 [facility] Platelets Auto (Bld) [#/Vol] Ordered By: Akin Suarez on 12-12-2024 Platelets (Bld) [#/Vol] Platelets [#/vol ume] in Blood by Automated count 150-450 [facility] Potassium [Moles/volume] in Serum or PlasmaOrdered By: Akin Suarez on 12-12-2024 Potassium [Moles/Vol] Potassium [Moles/v olume] in Serum or Plasma 3.5-5.1 [facility] Protein Creat Ratio Ur Rando mon 12-12-2024 Creatinine, Urine (Random) 128.00 mg/dL Normal [facility] Comment on above: Result Comment: No r eference range established Performed By: #### P ATH TO [facility] #### [facility] [address] Protein (U) [Mass/Vol] 42 mg/dL High 0-9 [facility] Comment on above: Performed By: #### P ATH TO [facility] #### [facility] [address] Urine Protein/Creatinine Ratio 328 mg/g{Cre} High 0-200 [facility] Comment on above: Result Comment: PERF ORMED BY: [place] [address] PATHOLOGIST FACILITIES MECHANICAL DESIGN ENGINEER CARLOS A CARD M.D. Performed By: #### P ATH TO [facility] #### [facility] [address] Protein Test strip (U) [Mass /Vol]Ordered By: Akin Suarez on 12-12-2024 Protein (U) [Mass/Vol] Protein [Mass/vol ume] in Urine by Test strip High Negative [facility] Protein [Mass/volume] in Uri neOrdered By: Akin Galeanar on 12-12-2024 Protein (U) [Mass/Vol] Protein [Mass/vol ume] in Urine High 0-9 [facility] RBC Auto (Bld) [#/Vol]Ordere d By: Akin Galeanar on 12-12-2024 RBC (Bld) [#/Vol] Erythrocytes [#/volu me] in Blood by Automated count 3.60-5.00 [facility] Renal Function Panelon 12-12 Albumin [Mass/Vol] 3.8 g/dL Normal 3.5-5.7 [facility] Comment on above: Performed By: #### M G, CBCNO, [id number], URIC, RENAL, PTH ####[facility] [id number] Anion gap [Moles/Vol] 15.4 mmol/L High 6.0-15.0 [facility] Comment on above: Performed By: #### M G, CBCNO, [id number], URIC, RENAL, PTH ####[place] [id number] [facility] Calcium [Mass/Vol] 8.6 mg/dL Normal 8.6-10.3 [facility] Comment on above: Performed By: #### M G, CBCNO, [id number], URIC, RENAL, PTH ####[place] [phone] [facility] Chloride [Moles/Vol] 108 mmol/L High 98-107 [facility] Comment on above: Performed By: #### M G, CBCNO, [id number], URIC, RENAL, PTH ####[place] [phone] [facility] CO2 [Moles/Vol] 22.2 mmol/L Normal 21.0-31.0 [facility] Comment on above: Performed By: #### M G, CBCNO, [id number], URIC, RENAL, PTH ####[place] [phone] [facility] Creatinine [Mass/Vol] 2.29 mg/dL High 0.60-1.20 [facility] Comment on above: Performed By: #### M G, CBCNO, [id number], URIC, RENAL, PTH ####[place] [phone] [facility] Creatinine Clr Calc Pharmacy 21.90 Normal [facility] Comment on above: Performed By: #### M G, CBCNO, [id number], URIC, RENAL, PTH ####[place] [phone] [facility] Estimated GFR 20.812 mL/Min Normal [facility] Comment on above: Performed By: #### M G, CBCNO, [id number], URIC, RENAL, PTH ####[place] [phone] [facility] Glucose [Mass/Vol] 117 mg/dL High 70-100 [facility] Comment on above: Result Comment: [place] Glucose Reference Range is dependent on time and content of last meal. Glucose of more than 200 mg/dL in a nonstressed, ambulatory subject supports the diagnosis of Diabetes Mellitus. ADA recommended reference range Performed By: #### M G, CBCNO, [id number], URIC, RENAL, PTH ####[place] [id number] [place] [phone] [facility] Phosphate [Mass/Vol] 3.6 mg/dL Normal 2.5-4.5 [facility] Comment on above: Performed By: #### M G, CBCNO, [id number], URIC, RENAL, PTH ####[place] [id number] [place] [phone] [facility] Potassium [Moles/Vol] 4.6 mmol/L Normal 3.5-5.1 [facility] Comment on above: Performed By: #### M G, CBCNO, [id number], URIC, RENAL, PTH ####[place] [phone] [facility] Sodium [Moles/Vol] 141 mmol/L Normal 136-145 [facility] Comment on above: Performed By: #### M G, CBCNO, [id number], URIC, RENAL, PTH ####[place] [phone] [facility] Urea nitrogen [Mass/Vol] 23 mg/dL Normal 7-25 [facility] Comment on above: Performed By: #### M G, CBCNO, [id number], URIC, RENAL, PTH ####[place] [phone] [facility] Serum or plasma anion gap de terminationOrdered By: Akin Suarez on 12-12-2024 Anion gap [Moles/Vol] Serum or plasma an ion gap determination High 6.0-15.0 [facility] Sodium [Moles/volume] in Ser um or PlasmaOrdered By: Akin Suarez on 12-12-2024 Sodium [Moles/Vol] Sodium [Moles/volume ] in Serum or Plasma 136-145 [facility] Specific gravity Test strip (U) [Rel density]Ordered By: Akin Lopez on 12-12-2024 Specific gravity (U) [Rel density] Specific gravity of Urine by Test strip 1.001-1.03 0 [facility] Urate [Mass/volume] in Serum or PlasmaOrdered By: Akin Lopez on 12-12-2024 Urate [Mass/Vol] Urate [Mass/volume] in Serum or Plasma High 2.3-6.6 [facility] Urea nitrogen [Mass/volume] in Serum or PlasmaOrdered By: Akin Lopez on 12-12-2024 Urea nitrogen [Mass/Vol] Urea nitrogen [Mass/volume] in Serum or Plasma 7- [facility] Uric Acidon 12-12-2024 Urate [Mass/Vol] 6.9 mg/dL High 2.3-6.6 [facility] Comment on above: Performed By: #### M G, CBCNO, [id number], URIC, RENAL, PTH ####[facility] [place] [address] [facility] Urine protein/creatinine rat ioOrdered By: Akin Lopez on 12-12-2024 Protein/Creatinine (U) [Ratio] Urine protein/creatinine ratio High 0-200 [facility] Urobilinogen Test strip (U) [Mass/Vol]Ordered By: Akin Lopez on 12-12-2024 Urobilinogen (U) [Mass/Vol] Urobilinogen [Mass/volume] in Urine by Test strip Normal [facility] Vitamin D 25 Hydroxy Totalon 12-12-2024 Vitamin D 25 Hydroxy Total 41.8 ng/mL Normal 30-100 [facility] Comment on above: Result Comment: WOJCIECH MIN D STATUS 25(OH)VITAMIN D RANGE (ng/mL) Deficient <20 Insufficient 20 to <30 Sufficient 30 to 100 Reference: Reji MF,Caro NC, Marguerite MCMAHON, et al. Evaluation,treatment, and prevention of vitamin D deficiency; an Endocrine Society clinical practice guideline. JCEM. 2010; 96(7):1911-30. PERFORMED BY: [facility] [address] [place] [address] PATHOLOGIST FACILITIES MECHANICAL DESIGN ENGINEER CARLOS A CARD M.D. Performed By: #### M G, CBCNO, [id number], URIC, RENAL, PTH ####[facility] [id number] [place] [phone] [facility] Vitamin D+Metabolites [Mass/ volume] in Serum or PlasmaOrdered By: Akin Lopez on 12-12-2024 Vitamin D+Metabolites [Mass/Vol] Vitamin D+Metabolites [Mass/volume] in Serum or Plasma 30-100 [facility] pH Test strip (U)Ordered By: Akin Lopez on 12-12-2024 pH (U) pH of Urine by Test strip 5.0-9.0 [facility] Basophils Auto (Bld) [#/Vol] on 11-24-2024 Basophils (Bld) [#/Vol] Automated basophil count 0.0-0.1 [facility] Basophils/100 WBC Auto (Bld) on 11-24-2024 Basophils/100 WBC (Bld) Automated basophil % 0. 2-2.0 [facility] Eosinophils/100 WBC Auto (Bl d)on 11-24-2024 Eosinophils/100 WBC (Bld) Automated eosinophil % 0.9-7.0 [facility] Erythrocyte distribution wid th Auto (RBC) [Ratio]on 11-24-2024 Erythrocyte distribution width (RBC) [Ratio] Erythrocyte distribution width [Ratio] by Automated count 11.0-15.0 [facility] Estimated glomerular filtrat ion rate (GFR) non- Americanon 11-24-2024 GFR/1.73 sq M.predicted among non-blacks MDRD (S/P/Bld) [Vol rate/Area] Estimated glomerular filtration rate (GFR) non- Low >=60 mL/min/1.7 3m 2 [facility] Globulin Calc (S) [Mass/Vol] on 11-24-2024 Globulin (S) [Mass/Vol] Serum globulin measurement by calculation (mass/volume) [facility] Hematocrit Auto (Bld) [Volum e fraction]on 11-24-2024 Hematocrit (Bld) [Volume fraction] Hematocrit [Volume Fraction] of Blood by Automated count Low 36.0-48.0 [facility] Hemoglobin [Mass/volume] in Bloodon 11-24-2024 Hemoglobin (Bld) [Mass/Vol] Hemoglobin [Mass/volume] in Blood Low 12.0-16.0 [facility] Laboratory - Chemistry and C hemistry - challengeon 11-24-2024 Albumin [Mass/Vol] 3.0 g/dL Low 3.4-5.0 [facility] ALP [Catalytic activity/Vol] 101 U/L 46-116 [facility] ALT [Catalytic activity/Vol] 10 U/L Low 14-59 [facility] AST [Catalytic activity/Vol] 12 U/L Low 15-37 [facility] Bilirubin [Mass/Vol] 0.5 mg/dL 0.2-1.0 [facility] Calcium [Mass/Vol] 7.9 mg/dL Low 8.5-10.1 [facility] Chloride [Moles/Vol] 107 mmol/L 98-107 [facility] CO2 [Moles/Vol] 24.7 mmol/L 21.0-32.0 [facility] Creatinine [Mass/Vol] 2.77 mg/dL High 0.55-1.02 [facility] GFR/1.73 sq M.predicted MDRD (S/P/Bld) [Vol rate/Area] 20 mL/min/{1.73_m2} Low >=60 mL/min/1.7 3m 2 [facility] Glucose [Mass/Vol] 137 mg/dL High 74-106 [facility] Potassium [Moles/Vol] 3.3 mmol/L Low 3.5-5.1 [facility] Protein [Mass/Vol] 6.1 g/dL Low 6.4-8.2 [facility] Sodium [Moles/Vol] 141 mmol/L 136-145 [facility] Urea nitrogen [Mass/Vol] 23.0 mg/dL High 7.0-18.0 [facility] Urea nitrogen/Creatinine [Mass ratio] 8.3 mg/mg [facility] Laboratory - Hematology and Cell countson 11-24-2024 Immature granulocytes/100 WBC (Bld) 0.3 % 0.0-0.5 [facility] Leukocytes [#/volume] correc dominick for nucleated erythrocytes in Blood by Automated counon 11-24-2024 WBC corrected for nucl RBC Auto (Bld) [#/Vol] Leukocytes [#/volume] corrected for nucleated erythrocytes in Blood by Automated coun 4.0-11.0 [facility] Lymphocytes Auto (Bld) [#/Vo l]on 11-24-2024 Lymphocytes (Bld) [#/Vol] Lymphocytes [#/volume] in Blood by Automated count 1.2-3.8 [facility] Lymphocytes/100 WBC Auto (Bl d)on 11-24-2024 Lymphocytes/100 WBC (Bld) Lymphocytes/100 leukocytes in Blood by Automated count Low 20.5-60.0 [facility] MCH Auto (RBC) [Entitic mass ]on 11-24-2024 MCH (RBC) [Entitic mass] MCH [Entitic ma ss] by Automated count 26.7-34.0 [facility] MCHC Auto (RBC) [Mass/Vol]on 11-24-2024 MCHC (RBC) [Mass/Vol] MCHC [Mass/volume] by Automated count 29.9-35.2 [facility] MCV Auto (RBC) [Entitic vol] on 11-24-2024 MCV (RBC) [Entitic vol] MCV [Entitic vol ume] by Automated count 81.0-99.0 [facility] Monocytes Auto (Bld) [#/Vol] on 11-24-2024 Monocytes (Bld) [#/Vol] Automated blood monocyte count 0.3-0.8 [facility] Monocytes/100 WBC Auto (Bld) on 11-24-2024 Monocytes/100 WBC (Bld) Automated monocyte % 1. 7-12.0 [facility] Neutrophils Auto (Bld) [#/Vo l]on 11-24-2024 Neutrophils (Bld) [#/Vol] Neutrophils [#/volume] in Blood by Automated count 1.4-6.5 [facility] Neutrophils/100 WBC Auto (Bl d)on 11-24-2024 Neutrophils/100 WBC (Bld) Automated neutrophil % 43.0-75.0 [facility] No Panel Informationon 11-24 Eosinophils # (Auto) 0.2 10 3/uL 0.0-0.7 [facility] Immature Granulocyte # (Auto) 0.02 10 3/uL 0.00-0.03 [facility] 101 U/L 46-116 [facility] 0.2 10 3/uL 0.0-0.7 [facility] 10 U/L Low 14-59 [facility] 3.0 g/dL Low 3.4-5.0 [facility] 12 U/L Low 15-37 [facility] 8.3 [facility] 23.0 mg/dL High 7.0-18.0 [facility] 0.02 10 3/uL 0.00-0.03 [facility] 7.9 mg/dL Low 8.5-10.1 [facility] 0.3 % 0.0-0.5 [facility] 107 mmol/L 98-107 [facility] 24.7 mmol/L 21.0-32.0 [facility] 2.77 mg/dL High 0.55-1.02 [facility] 20 Low >=60 mL/min/1.7 3m 2 [facility] 137 mg/dL High 74-106 [facility] 3.3 mmol/L Low 3.5-5.1 [facility] 141 mmol/L 136-145 [facility] 0.5 mg/dL 0.2-1.0 [facility] 6.1 g/dL Low 6.4-8.2 [facility] Platelet mean volume Auto (B ld) [Entitic vol]on 11-24-2024 Platelet mean volume (Bld) [Entitic vol] Platelet mean volume [Entitic volume] in Blood by Automated count 9.5-13.5 [facility] Platelets Auto (Bld) [#/Vol] on 11-24-2024 Platelets (Bld) [#/Vol] Platelets [#/vol ume] in Blood by Automated count 150-450 [facility] RBC Auto (Bld) [#/Vol]on RBC (Bld) [#/Vol] Erythrocytes [#/volu me] in Blood by Automated count Low 4.20-5.40 [facility] Serum or plasma albumin/glob ulin mass ratioon 11-24-2024 Albumin/Globulin [Mass ratio] Serum or plasma albumin/globulin mass ratio [facility] Serum or plasma anion gap de terminationon 11-24-2024 Anion gap [Moles/Vol] Serum or plasma an ion gap determination [facility] Basophils Auto (Bld) [#/Vol] on 11-23-2024 Basophils (Bld) [#/Vol] Automated basophil count 0.0-0.1 [facility] Basophils/100 WBC Auto (Bld) on 11-23-2024 Basophils/100 WBC (Bld) Automated basophil % 0. 2-2.0 [facility] Eosinophils/100 WBC Auto (Bl d)on 11-23-2024 Eosinophils/100 WBC (Bld) Automated eosinophil % 0.9-7.0 [facility] Erythrocyte distribution wid th Auto (RBC) [Ratio]on 11-23-2024 Erythrocyte distribution width (RBC) [Ratio] Erythrocyte distribution width [Ratio] by Automated count 11.0-15.0 [facility] Estimated glomerular filtrat ion rate (GFR) non- Americanon 11-23-2024 GFR/1.73 sq M.predicted among non-blacks MDRD (S/P/Bld) [Vol rate/Area] Estimated glomerular filtration rate (GFR) non- Low >=60 mL/min/1.7 3m 2 [facility] Hematocrit Auto (Bld) [Volum e fraction]on 11-23-2024 Hematocrit (Bld) [Volume fraction] Hematocrit [Volume Fraction] of Blood by Automated count 36.0-48.0 [facility] Hemoglobin [Mass/volume] in Bloodon 11-23-2024 Hemoglobin (Bld) [Mass/Vol] Hemoglobin [Mass/volume] in Blood 12.0-16.0 [facility] Laboratory - Chemistry and C hemistry - challengeon 11-23-2024 Calcium [Mass/Vol] 8.5 mg/dL 8.5-10.1 [facility] Chloride [Moles/Vol] 102 mmol/L 98-107 [facility] CO2 [Moles/Vol] 25.4 mmol/L 21.0-32.0 [facility] Creatinine [Mass/Vol] 3.14 mg/dL High 0.55-1.02 [facility] GFR/1.73 sq M.predicted MDRD (S/P/Bld) [Vol rate/Area] 17 mL/min/{1.73_m2} Low >=60 mL/min/1.7 3m 2 [facility] Glucose [Mass/Vol] 235 mg/dL High 74-106 [facility] Natriuretic peptide B (Bld) [Mass/Vol] 2855.0 pg/mL Critically high <=1800.0 [facility] Comment on above: RESULTS CALLED TO DO ZAID SIMMONS RN AT 1146 Potassium [Moles/Vol] 3.6 mmol/L 3.5-5.1 [facility] Sodium [Moles/Vol] 139 mmol/L 136-145 [facility] Urea nitrogen [Mass/Vol] 26.0 mg/dL High 7.0-18.0 [facility] Urea nitrogen/Creatinine [Mass ratio] 8.3 mg/mg [facility] Laboratory - Hematology and Cell countson 11-23-2024 Immature granulocytes/100 WBC (Bld) 0.1 % 0.0-0.5 [facility] Leukocytes [#/volume] correc dominick for nucleated erythrocytes in Blood by Automated counon 11-23-2024 WBC corrected for nucl RBC Auto (Bld) [#/Vol] Leukocytes [#/volume] corrected for nucleated erythrocytes in Blood by Automated coun 4.0-11.0 [facility] Lymphocytes Auto (Bld) [#/Vo l]on 11-23-2024 Lymphocytes (Bld) [#/Vol] Lymphocytes [#/volume] in Blood by Automated count 1.2-3.8 [facility] Lymphocytes/100 WBC Auto (Bl d)on 11-23-2024 Lymphocytes/100 WBC (Bld) Lymphocytes/100 leukocytes in Blood by Automated count 20.5-60.0 [facility] MCH Auto (RBC) [Entitic mass ]on 11-23-2024 MCH (RBC) [Entitic mass] MCH [Entitic ma ss] by Automated count 26.7-34.0 [facility] MCHC Auto (RBC) [Mass/Vol]on 11-23-2024 MCHC (RBC) [Mass/Vol] MCHC [Mass/volume] by Automated count 29.9-35.2 [facility] MCV Auto (RBC) [Entitic vol] on 11-23-2024 MCV (RBC) [Entitic vol] MCV [Entitic vol ume] by Automated count 81.0-99.0 [facility] Monocytes Auto (Bld) [#/Vol] on 11-23-2024 Monocytes (Bld) [#/Vol] Automated blood monocyte count 0.3-0.8 [facility] Monocytes/100 WBC Auto (Bld) on 11-23-2024 Monocytes/100 WBC (Bld) Automated monocyte % 1. 7-12.0 [facility] Neutrophils Auto (Bld) [#/Vo l]on 11-23-2024 Neutrophils (Bld) [#/Vol] Neutrophils [#/volume] in Blood by Automated count 1.4-6.5 [facility] Neutrophils/100 WBC Auto (Bl d)on 11-23-2024 Neutrophils/100 WBC (Bld) Automated neutrophil % 43.0-75.0 [facility] No Panel Informationon 11-23 Eosinophils # (Auto) 0.1 10 3/uL 0.0-0.7 [facility] Immature Granulocyte # (Auto) 0.01 10 3/uL 0.00-0.03 [facility] 2855.0 pg/mL Critically high <=1800.0 [facility] 8.3 [facility] 0.1 10 3/uL 0.0-0.7 [facility] 26.0 mg/dL High 7.0-18.0 [facility] 8.5 mg/dL 8.5-10.1 [facility] 102 mmol/L 98-107 [facility] 25.4 mmol/L 21.0-32.0 [facility] 0.01 10 3/uL 0.00-0.03 [facility] 3.14 mg/dL High 0.55-1.02 [facility] 0.1 % 0.0-0.5 [facility] 17 Low >=60 mL/min/1.7 3m 2 [facility] 235 mg/dL High 74-106 [facility] 3.6 mmol/L 3.5-5.1 [facility] 139 mmol/L 136-145 [facility] Platelet mean volume Auto (B ld) [Entitic vol]on 11-23-2024 Platelet mean volume (Bld) [Entitic vol] Platelet mean volume [Entitic volume] in Blood by Automated count 9.5-13.5 [facility] Platelets Auto (Bld) [#/Vol] on 11-23-2024 Platelets (Bld) [#/Vol] Platelets [#/vol ume] in Blood by Automated count 150-450 [facility] RBC Auto (Bld) [#/Vol]on RBC (Bld) [#/Vol] Erythrocytes [#/volu me] in Blood by Automated count Low 4.20-5.40 [facility] Serum or plasma anion gap de terminationon 11-23-2024 Anion gap [Moles/Vol] Serum or plasma an ion gap determination [facility] Basophils Auto (Bld) [#/Vol] on 11-22-2024 Basophils (Bld) [#/Vol] Automated basophil count 0.0-0.1 [facility] Basophils/100 WBC Auto (Bld) on 11-22-2024 Basophils/100 WBC (Bld) Automated basophil % 0. 2-2.0 [facility] Eosinophils/100 WBC Auto (Bl d)on 11-22-2024 Eosinophils/100 WBC (Bld) Automated eosinophil % 0.9-7.0 [facility] Erythrocyte distribution wid th Auto (RBC) [Ratio]on 11-22-2024 Erythrocyte distribution width (RBC) [Ratio] Erythrocyte distribution width [Ratio] by Automated count 11.0-15.0 [facility] Estimated glomerular filtrat ion rate (GFR) non- Americanon 11-22-2024 GFR/1.73 sq M.predicted among non-blacks MDRD (S/P/Bld) [Vol rate/Area] Estimated glomerular filtration rate (GFR) non- Low >=60 mL/min/1.7 3m 2 [facility] Globulin Calc (S) [Mass/Vol] on 11-22-2024 Globulin (S) [Mass/Vol] Serum globulin measurement by calculation (mass/volume) [facility] Hematocrit Auto (Bld) [Volum e fraction]on 11-22-2024 Hematocrit (Bld) [Volume fraction] Hematocrit [Volume Fraction] of Blood by Automated count 36.0-48.0 [facility] Hemoglobin [Mass/volume] in Bloodon 11-22-2024 Hemoglobin (Bld) [Mass/Vol] Hemoglobin [Mass/volume] in Blood Low 12.0-16.0 [facility] Laboratory - Chemistry and C hemistry - challengeon 11-22-2024 Albumin [Mass/Vol] 3.1 g/dL Low 3.4-5.0 [facility] ALP [Catalytic activity/Vol] 123 U/L High 46-116 [facility] ALT [Catalytic activity/Vol] 11 U/L Low 14-59 [facility] AST [Catalytic activity/Vol] 12 U/L Low 15-37 [facility] Bilirubin [Mass/Vol] 0.8 mg/dL 0.2-1.0 [facility] Calcium [Mass/Vol] 8.6 mg/dL 8.5-10.1 [facility] Chloride [Moles/Vol] 108 mmol/L High 98-107 [facility] CO2 [Moles/Vol] 24.5 mmol/L 21.0-32.0 [facility] Creatinine [Mass/Vol] 2.36 mg/dL High 0.55-1.02 [facility] GFR/1.73 sq M.predicted MDRD (S/P/Bld) [Vol rate/Area] 24 mL/min/{1.73_m2} Low >=60 mL/min/1.7 3m 2 [facility] Glucose [Mass/Vol] 126 mg/dL High 74-106 [facility] Magnesium [Mass/Vol] 2.1 mg/dL 1.8-2.4 [facility] Potassium [Moles/Vol] 3.8 mmol/L 3.5-5.1 [facility] Protein [Mass/Vol] 6.6 g/dL 6.4-8.2 [facility] Sodium [Moles/Vol] 144 mmol/L 136-145 [facility] Urea nitrogen [Mass/Vol] 18.0 mg/dL 7.0-18.0 [facility] Urea nitrogen/Creatinine [Mass ratio] 7.6 mg/mg [facility] Laboratory - Hematology and Cell countson 11-22-2024 Immature granulocytes/100 WBC (Bld) 0.3 % 0.0-0.5 [facility] Leukocytes [#/volume] correc dominick for nucleated erythrocytes in Blood by Automated counon 11-22-2024 WBC corrected for nucl RBC Auto (Bld) [#/Vol] Leukocytes [#/volume] corrected for nucleated erythrocytes in Blood by Automated coun 4.0-11.0 [facility] Lymphocytes Auto (Bld) [#/Vo l]on 11-22-2024 Lymphocytes (Bld) [#/Vol] Lymphocytes [#/volume] in Blood by Automated count 1.2-3.8 [facility] Lymphocytes/100 WBC Auto (Bl d)on 11-22-2024 Lymphocytes/100 WBC (Bld) Lymphocytes/100 leukocytes in Blood by Automated count 20.5-60.0 [facility] MCH Auto (RBC) [Entitic mass ]on 11-22-2024 MCH (RBC) [Entitic mass] MCH [Entitic ma ss] by Automated count 26.7-34.0 [facility] MCHC Auto (RBC) [Mass/Vol]on 11-22-2024 MCHC (RBC) [Mass/Vol] MCHC [Mass/volume] by Automated count 29.9-35.2 [facility] MCV Auto (RBC) [Entitic vol] on 11-22-2024 MCV (RBC) [Entitic vol] MCV [Entitic vol ume] by Automated count 81.0-99.0 [facility] Monocytes Auto (Bld) [#/Vol] on 11-22-2024 Monocytes (Bld) [#/Vol] Automated blood monocyte count 0.3-0.8 [facility] Monocytes/100 WBC Auto (Bld) on 11-22-2024 Monocytes/100 WBC (Bld) Automated monocyte % 1. 7-12.0 [facility] Neutrophils Auto (Bld) [#/Vo l]on 11-22-2024 Neutrophils (Bld) [#/Vol] Neutrophils [#/volume] in Blood by Automated count 1.4-6.5 [facility] Neutrophils/100 WBC Auto (Bl d)on 11-22-2024 Neutrophils/100 WBC (Bld) Automated neutrophil % 43.0-75.0 [facility] No Panel Informationon 11-22 Eosinophils # (Auto) 0.1 10 3/uL 0.0-0.7 [facility] Immature Granulocyte # (Auto) 0.02 10 3/uL 0.00-0.03 [facility] Troponin I High Sensitivity 6.6 pg/mL 4.0-51.3 [facility] Comment on above: CUT-OFF POINTS [...] IN CONJUNCTIONWITH OTHER DIAGNOSTIC AND CLINICAL INFORMATION. 6.6 pg/mL 4.0-51.3 [facility] 2.1 mg/dL 1.8-2.4 [facility] 0.1 10 3/uL 0.0-0.7 [facility] 3.1 g/dL Low 3.4-5.0 [facility] 123 U/L High 46-116 [facility] 11 U/L Low 14-59 [facility] 12 U/L Low 15-37 [facility] 0.02 10 3/uL 0.00-0.03 [facility] 7.6 [facility] 0.3 % 0.0-0.5 [facility] 18.0 mg/dL 7.0-18.0 [facility] 8.6 mg/dL 8.5-10.1 [facility] 108 mmol/L High 98-107 [facility] 24.5 mmol/L 21.0-32.0 [facility] 2.36 mg/dL High 0.55-1.02 [facility] 24 Low >=60 mL/min/1.7 3m 2 [facility] 126 mg/dL High 74-106 [facility] 3.8 mmol/L 3.5-5.1 [facility] 144 mmol/L 136-145 [facility] 0.8 mg/dL 0.2-1.0 [facility] 6.6 g/dL 6.4-8.2 [facility] Platelet mean volume Auto (B ld) [Entitic vol]on 11-22-2024 Platelet mean volume (Bld) [Entitic vol] Platelet mean volume [Entitic volume] in Blood by Automated count 9.5-13.5 [facility] Platelets Auto (Bld) [#/Vol] on 11-22-2024 Platelets (Bld) [#/Vol] Platelets [#/vol ume] in Blood by Automated count 150-450 [facility] RBC Auto (Bld) [#/Vol]on RBC (Bld) [#/Vol] Erythrocytes [#/volu me] in Blood by Automated count Low 4.20-5.40 [facility] Serum or plasma albumin/glob ulin mass ratioon 11-22-2024 Albumin/Globulin [Mass ratio] Serum or plasma albumin/globulin mass ratio [facility] Serum or plasma anion gap de terminationon 11-22-2024 Anion gap [Moles/Vol] Serum or plasma an ion gap determination [facility] Basophils Auto (Bld) [#/Vol] on 11-21-2024 Basophils (Bld) [#/Vol] Automated basophil count 0.0-0.1 [facility] Basophils/100 WBC Auto (Bld) on 11-21-2024 Basophils/100 WBC (Bld) Automated basophil % 0. 2-2.0 [facility] Eosinophils/100 WBC Auto (Bl d)on 11-21-2024 Eosinophils/100 WBC (Bld) Automated eosinophil % 0.9-7.0 [facility] Erythrocyte distribution wid th Auto (RBC) [Ratio]on 11-21-2024 Erythrocyte distribution width (RBC) [Ratio] Erythrocyte distribution width [Ratio] by Automated count 11.0-15.0 [facility] Estimated glomerular filtrat ion rate (GFR) non- Americanon 11-21-2024 GFR/1.73 sq M.predicted among non-blacks MDRD (S/P/Bld) [Vol rate/Area] Estimated glomerular filtration rate (GFR) non- Low >=60 mL/min/1.7 3m 2 [facility] Globulin Calc (S) [Mass/Vol] on 11-21-2024 Globulin (S) [Mass/Vol] Serum globulin measurement by calculation (mass/volume) [facility] Hematocrit Auto (Bld) [Volum e fraction]on 11-21-2024 Hematocrit (Bld) [Volume fraction] Hematocrit [Volume Fraction] of Blood by Automated count 36.0-48.0 [facility] Hemoglobin [Mass/volume] in Bloodon 11-21-2024 Hemoglobin (Bld) [Mass/Vol] Hemoglobin [Mass/volume] in Blood Low 12.0-16.0 [facility] Hemoglobin.gastrointestinal [Presence] in Stoolon 11-21-2024 Hemoglobin.gastrointesti nal Ql (Stl) Hemoglobin.gastrointestin al [Presence] in Stool [facility] INR in Platelet poor plasma by Coagulation assayon 11-21-2024 INR Coag (PPP) [Relative time] INR in Platelet poor plasma by Coagulation assay [facility] Comment on above: DESIRED INR:2.0-3.0 CONDITIONS NOT LISTED BELOW2.5-3.5 FOR PROSTHETIC HEART VALVE REPLACEMENT2.5-3.5 RECURRENT THROMBOSIS Laboratory - Chemistry and C hemistry - challengeon 11-21-2024 Albumin [Mass/Vol] 3.0 g/dL Low 3.4-5.0 [facility] ALP [Catalytic activity/Vol] 124 U/L High 46-116 [facility] ALT [Catalytic activity/Vol] 12 U/L Low 14-59 [facility] AST [Catalytic activity/Vol] 14 U/L Low 15-37 [facility] Bilirubin [Mass/Vol] 0.5 mg/dL 0.2-1.0 [facility] Calcium [Mass/Vol] 8.3 mg/dL Low 8.5-10.1 [facility] Chloride [Moles/Vol] 110 mmol/L High 98-107 [facility] CO2 [Moles/Vol] 22.7 mmol/L 21.0-32.0 [facility] Creatinine [Mass/Vol] 2.36 mg/dL High 0.55-1.02 [facility] GFR/1.73 sq M.predicted MDRD (S/P/Bld) [Vol rate/Area] 24 mL/min/{1.73_m2} Low >=60 mL/min/1.7 3m 2 [facility] Glucose [Mass/Vol] 151 mg/dL High 74-106 [facility] Natriuretic peptide B (Bld) [Mass/Vol] 2945.0 pg/mL Critically high <=1800.0 [facility] Comment on above: RESULTS CALLED TO KRISTEN NAILS Potassium [Moles/Vol] 4.5 mmol/L 3.5-5.1 [facility] Protein [Mass/Vol] 6.6 g/dL 6.4-8.2 [facility] Sodium [Moles/Vol] 143 mmol/L 136-145 [facility] Urea nitrogen [Mass/Vol] 17.0 mg/dL 7.0-18.0 [facility] Urea nitrogen/Creatinine [Mass ratio] 7.2 mg/mg [facility] Laboratory - Hematology and Cell countson 11-21-2024 Immature granulocytes/100 WBC (Bld) 0.4 % 0.0-0.5 [facility] Laboratory - Microbiology an d Antimicrobial susceptibilityon 11-21-2024 SARS-CoV-2 (COVID-19) RNA RADHA+probe Ql (Unsp spec) Negative NEGATIVE [facility] Comment on above: This test has not be en FDA cleared or approved, but has beenauthorized by the FDA under an Emergency Use Authorization(EUA) for use by authorized laboratories certified underCLIA that meet the requirements to perform moderate or highcomplexity testing. This test has been authorized only forthe detection of proteins from SARS-CoV-2, not for any otherviruses or pathogens. The emergency use of this test isauthorized for the duration of the declaration thatcircumstances exist justifying the authorization ofemergency use of in vitro diagnostic tests for detectionand/or diagnosis of Covid-19 under section 564(b)(1) of the[facility], [place] 360bbb-3(b)(1), unless the declaration isterminated or authorization is revoked sooner. Leukocytes [#/volume] correc dominick for nucleated erythrocytes in Blood by Automated counon 11-21-2024 WBC corrected for nucl RBC Auto (Bld) [#/Vol] Leukocytes [#/volume] corrected for nucleated erythrocytes in Blood by Automated coun 4.0-11.0 [facility] Lymphocytes Auto (Bld) [#/Vo l]on 11-21-2024 Lymphocytes (Bld) [#/Vol] Lymphocytes [#/volume] in Blood by Automated count 1.2-3.8 [facility] Lymphocytes/100 WBC Auto (Bl d)on 11-21-2024 Lymphocytes/100 WBC (Bld) Lymphocytes/100 leukocytes in Blood by Automated count 20.5-60.0 [facility] MCH Auto (RBC) [Entitic mass ]on 11-21-2024 MCH (RBC) [Entitic mass] MCH [Entitic ma ss] by Automated count 26.7-34.0 [facility] MCHC Auto (RBC) [Mass/Vol]on 11-21-2024 MCHC (RBC) [Mass/Vol] MCHC [Mass/volume] by Automated count 29.9-35.2 [facility] MCV Auto (RBC) [Entitic vol] on 11-21-2024 MCV (RBC) [Entitic vol] MCV [Entitic vol ume] by Automated count 81.0-99.0 [facility] Monocytes Auto (Bld) [#/Vol] on 11-21-2024 Monocytes (Bld) [#/Vol] Automated blood monocyte count 0.3-0.8 [facility] Monocytes/100 WBC Auto (Bld) on 11-21-2024 Monocytes/100 WBC (Bld) Automated monocyte % 1. 7-12.0 [facility] Neutrophils Auto (Bld) [#/Vo l]on 11-21-2024 Neutrophils (Bld) [#/Vol] Neutrophils [#/volume] in Blood by Automated count 1.4-6.5 [facility] Neutrophils/100 WBC Auto (Bl d)on 11-21-2024 Neutrophils/100 WBC (Bld) Automated neutrophil % 43.0-75.0 [facility] No Panel Informationon 11-21 Bedside Influenza Type A Antigen Negative [facility] Comment on above: Negative for Flu A p rotein antigen. Infection due to Flu Acannot be ruled out. Flu A antigen in the sample may bebelow the detection limit of the test. Bedside Influenza Type B Antigen Negative [facility] Comment on above: Negative for Flu B p rotein antigen. Infection due to Flu Bcannot be ruled out. Flu B antigen in the sample may bebelow the detection limit of the test. Negative [facility] Eosinophils # (Auto) 0.1 10 3/uL 0.0-0.7 [facility] Immature Granulocyte # (Auto) 0.03 10 3/uL 0.00-0.03 [facility] Troponin I High Sensitivity <4.0 pg/mL Low 4.0-51.3 [facility] Comment on above: CUT-OFF POINTS [...] IN CONJUNCTIONWITH OTHER DIAGNOSTIC AND CLINICAL INFORMATION. 2945.0 pg/mL Critically high <=1800.0 [facility] <4.0 pg/mL Low 4.0-51.3 [facility] 0.1 10 3/uL 0.0-0.7 [facility] 3.0 g/dL Low 3.4-5.0 [facility] 124 U/L High 46-116 [facility] 12 U/L Low 14-59 [facility] 14 U/L Low 15-37 [facility] 0.03 10 3/uL 0.00-0.03 [facility] 7.2 [facility] 0.4 % 0.0-0.5 [facility] 17.0 mg/dL 7.0-18.0 [facility] 8.3 mg/dL Low 8.5-10.1 [facility] 110 mmol/L High 98-107 [facility] 22.7 mmol/L 21.0-32.0 [facility] 2.36 mg/dL High 0.55-1.02 [facility] 24 Low >=60 mL/min/1.7 3m 2 [facility] 151 mg/dL High 74-106 [facility] 4.5 mmol/L 3.5-5.1 [facility] 143 mmol/L 136-145 [facility] 0.5 mg/dL 0.2-1.0 [facility] 6.6 g/dL 6.4-8.2 [facility] Platelet mean volume Auto (B ld) [Entitic vol]on 11-21-2024 Platelet mean volume (Bld) [Entitic vol] Platelet mean volume [Entitic volume] in Blood by Automated count 9.5-13.5 [facility] Platelets Auto (Bld) [#/Vol] on 11-21-2024 Platelets (Bld) [#/Vol] Platelets [#/vol ume] in Blood by Automated count 150-450 [facility] Prothrombin time (PT)on PT Coag (PPP) [Time] Prothrombin time (PT) 9.0- 11.6 [facility] RBC Auto (Bld) [#/Vol]on RBC (Bld) [#/Vol] Erythrocytes [#/volu me] in Blood by Automated count Low 4.20-5.40 [facility] Serum or plasma albumin/glob ulin mass ratioon 11-21-2024 Albumin/Globulin [Mass ratio] Serum or plasma albumin/globulin mass ratio [facility] Serum or plasma anion gap de terminationon 11-21-2024 Anion gap [Moles/Vol] Serum or plasma an ion gap determination [facility] Basophils Auto (Bld) [#/Vol] on 10-14-2024 Basophils (Bld) [#/Vol] Automated basophil count 0.0-0.1 [facility] Basophils/100 WBC Auto (Bld) on 10-14-2024 Basophils/100 WBC (Bld) Automated basophil % 0. 2-2.0 [facility] Eosinophils/100 WBC Auto (Bl d)on 10-14-2024 Eosinophils/100 WBC (Bld) Automated eosinophil % 0.9-7.0 [facility] Erythrocyte distribution wid th Auto (RBC) [Ratio]on 10-14-2024 Erythrocyte distribution width (RBC) [Ratio] Erythrocyte distribution width [Ratio] by Automated count High 11.0-15.0 [facility] Estimated glomerular filtrat ion rate (GFR) non- Americanon 10-14-2024 GFR/1.73 sq M.predicted among non-blacks MDRD (S/P/Bld) [Vol rate/Area] Estimated glomerular filtration rate (GFR) non- Low >=60 mL/min/1.7 3m 2 [facility] Globulin Calc (S) [Mass/Vol] on 10-14-2024 Globulin (S) [Mass/Vol] Serum globulin measurement by calculation (mass/volume) [facility] Hematocrit Auto (Bld) [Volum e fraction]on 10-14-2024 Hematocrit (Bld) [Volume fraction] Hematocrit [Volume Fraction] of Blood by Automated count Low 36.0-48.0 [facility] Hemoglobin [Mass/volume] in Bloodon 10-14-2024 Hemoglobin (Bld) [Mass/Vol] Hemoglobin [Mass/volume] in Blood Low 12.0-16.0 [facility] Laboratory - Chemistry and C hemistry - challengeon 10-14-2024 Albumin [Mass/Vol] 2.5 g/dL Low 3.4-5.0 [facility] ALP [Catalytic activity/Vol] 79 U/L 46-116 [facility] ALT [Catalytic activity/Vol] 18 U/L 14-59 [facility] AST [Catalytic activity/Vol] 15 U/L 15-37 [facility] Bilirubin [Mass/Vol] 0.6 mg/dL 0.2-1.0 [facility] Calcium [Mass/Vol] 8.4 mg/dL Low 8.5-10.1 [facility] Chloride [Moles/Vol] 113 mmol/L High 98-107 [facility] CO2 [Moles/Vol] 20.4 mmol/L Low 21.0-32.0 [facility] Creatinine [Mass/Vol] 2.73 mg/dL High 0.55-1.02 [facility] GFR/1.73 sq M.predicted MDRD (S/P/Bld) [Vol rate/Area] 20 mL/min/{1.73_m2} Low >=60 mL/min/1.7 3m 2 [facility] Glucose [Mass/Vol] 142 mg/dL High 74-106 [facility] Potassium [Moles/Vol] 4.3 mmol/L 3.5-5.1 [facility] Protein [Mass/Vol] 5.4 g/dL Low 6.4-8.2 [facility] Sodium [Moles/Vol] 143 mmol/L 136-145 [facility] Urea nitrogen [Mass/Vol] 37.0 mg/dL High 7.0-18.0 [facility] Urea nitrogen/Creatinine [Mass ratio] 13.6 mg/mg [facility] Laboratory - Hematology and Cell countson 10-14-2024 Immature granulocytes/100 WBC (Bld) 0.4 % 0.0-0.5 [facility] Leukocytes [#/volume] correc dominick for nucleated erythrocytes in Blood by Automated counon 10-14-2024 WBC corrected for nucl RBC Auto (Bld) [#/Vol] Leukocytes [#/volume] corrected for nucleated erythrocytes in Blood by Automated coun 4.0-11.0 [facility] Lymphocytes Auto (Bld) [#/Vo l]on 10-14-2024 Lymphocytes (Bld) [#/Vol] Lymphocytes [#/volume] in Blood by Automated count 1.2-3.8 [facility] Lymphocytes/100 WBC Auto (Bl d)on 10-14-2024 Lymphocytes/100 WBC (Bld) Lymphocytes/100 leukocytes in Blood by Automated count 20.5-60.0 [facility] MCH Auto (RBC) [Entitic mass ]on 10-14-2024 MCH (RBC) [Entitic mass] MCH [Entitic ma ss] by Automated count 26.7-34.0 [facility] MCHC Auto (RBC) [Mass/Vol]on 10-14-2024 MCHC (RBC) [Mass/Vol] MCHC [Mass/volume] by Automated count 29.9-35.2 [facility] MCV Auto (RBC) [Entitic vol] on 10-14-2024 MCV (RBC) [Entitic vol] MCV [Entitic vol ume] by Automated count 81.0-99.0 [facility] Monocytes Auto (Bld) [#/Vol] on 10-14-2024 Monocytes (Bld) [#/Vol] Automated blood monocyte count 0.3-0.8 [facility] Monocytes/100 WBC Auto (Bld) on 10-14-2024 Monocytes/100 WBC (Bld) Automated monocyte % 1. 7-12.0 [facility] Multiple labson 10-14-2024 [facility] Neutrophils Auto (Bld) [#/Vo l]on 10-14-2024 Neutrophils (Bld) [#/Vol] Neutrophils [#/volume] in Blood by Automated count 1.4-6.5 [facility] Neutrophils/100 WBC Auto (Bl d)on 10-14-2024 Neutrophils/100 WBC (Bld) Automated neutrophil % 43.0-75.0 [facility] No Panel Informationon 10-14 Eosinophils # (Auto) 0.1 10 3/uL 0.0-0.7 [facility] Immature Granulocyte # (Auto) 0.03 10 3/uL 0.00-0.03 [facility] 0.1 10 3/uL 0.0-0.7 [facility] 0.03 10 3/uL 0.00-0.03 [facility] 0.4 % 0.0-0.5 [facility] 2.5 g/dL Low 3.4-5.0 [facility] 79 U/L 46-116 [facility] 18 U/L 14-59 [facility] 15 U/L 15-37 [facility] 13.6 [facility] 37.0 mg/dL High 7.0-18.0 [facility] 8.4 mg/dL Low 8.5-10.1 [facility] 113 mmol/L High 98-107 [facility] 20.4 mmol/L Low 21.0-32.0 [facility] 2.73 mg/dL High 0.55-1.02 [facility] 20 Low >=60 mL/min/1.7 3m 2 [facility] 142 mg/dL High 74-106 [facility] 4.3 mmol/L 3.5-5.1 [facility] 143 mmol/L 136-145 [facility] 0.6 mg/dL 0.2-1.0 [facility] 5.4 g/dL Low 6.4-8.2 [facility] Platelet mean volume Auto (B ld) [Entitic vol]on 10-14-2024 Platelet mean volume (Bld) [Entitic vol] Platelet mean volume [Entitic volume] in Blood by Automated count 9.5-13.5 [facility] Platelets Auto (Bld) [#/Vol] on 10-14-2024 Platelets (Bld) [#/Vol] Platelets [#/vol ume] in Blood by Automated count Low 150-450 [facility] RBC Auto (Bld) [#/Vol]on RBC (Bld) [#/Vol] Erythrocytes [#/volu me] in Blood by Automated count Low 4.20-5.40 [facility] Serum or plasma albumin/glob ulin mass ratioon 10-14-2024 Albumin/Globulin [Mass ratio] Serum or plasma albumin/globulin mass ratio [facility] Serum or plasma anion gap de terminationon 10-14-2024 Anion gap [Moles/Vol] Serum or plasma an ion gap determination [facility] Basophils Auto (Bld) [#/Vol] on 10-13-2024 Basophils (Bld) [#/Vol] Automated basophil count 0.0-0.1 [facility] Basophils/100 WBC Auto (Bld) on 10-13-2024 Basophils/100 WBC (Bld) Automated basophil % 0. 2-2.0 [facility] Eosinophils/100 WBC Auto (Bl d)on 10-13-2024 Eosinophils/100 WBC (Bld) Automated eosinophil % 0.9-7.0 [facility] Erythrocyte distribution wid th Auto (RBC) [Ratio]on 10-13-2024 Erythrocyte distribution width (RBC) [Ratio] Erythrocyte distribution width [Ratio] by Automated count High 11.0-15.0 [facility] Estimated glomerular filtrat ion rate (GFR) non- Americanon 10-13-2024 GFR/1.73 sq M.predicted among non-blacks MDRD (S/P/Bld) [Vol rate/Area] Estimated glomerular filtration rate (GFR) non- Low >=60 mL/min/1.7 3m 2 [facility] Globulin Calc (S) [Mass/Vol] on 10-13-2024 Globulin (S) [Mass/Vol] Serum globulin measurement by calculation (mass/volume) [facility] Hematocrit Auto (Bld) [Volum e fraction]on 10-13-2024 Hematocrit (Bld) [Volume fraction] Hematocrit [Volume Fraction] of Blood by Automated count Low 36.0-48.0 [facility] Hemoglobin [Mass/volume] in Bloodon 10-13-2024 Hemoglobin (Bld) [Mass/Vol] Hemoglobin [Mass/volume] in Blood Low 12.0-16.0 [facility] Laboratory - Chemistry and C hemistry - challengeon 10-13-2024 Albumin [Mass/Vol] 2.6 g/dL Low 3.4-5.0 [facility] ALP [Catalytic activity/Vol] 75 U/L 46-116 [facility] ALT [Catalytic activity/Vol] 15 U/L 14-59 [facility] AST [Catalytic activity/Vol] 12 U/L Low 15-37 [facility] Bilirubin [Mass/Vol] 0.8 mg/dL 0.2-1.0 [facility] Calcium [Mass/Vol] 7.9 mg/dL Low 8.5-10.1 [facility] Chloride [Moles/Vol] 112 mmol/L High 98-107 [facility] CO2 [Moles/Vol] 22.5 mmol/L 21.0-32.0 [facility] Creatinine [Mass/Vol] 2.77 mg/dL High 0.55-1.02 [facility] GFR/1.73 sq M.predicted MDRD (S/P/Bld) [Vol rate/Area] 20 mL/min/{1.73_m2} Low >=60 mL/min/1.7 3m 2 [facility] Glucose [Mass/Vol] 138 mg/dL High 74-106 [facility] Potassium [Moles/Vol] 4.5 mmol/L 3.5-5.1 [facility] Protein [Mass/Vol] 5.4 g/dL Low 6.4-8.2 [facility] Sodium [Moles/Vol] 145 mmol/L 136-145 [facility] Urea nitrogen [Mass/Vol] 49.0 mg/dL High 7.0-18.0 [facility] Urea nitrogen/Creatinine [Mass ratio] 17.7 mg/mg [facility] Laboratory - Hematology and Cell countson 10-13-2024 Immature granulocytes/100 WBC (Bld) 0.5 % 0.0-0.5 [facility] Leukocytes [#/volume] correc dominick for nucleated erythrocytes in Blood by Automated counon 10-13-2024 WBC corrected for nucl RBC Auto (Bld) [#/Vol] Leukocytes [#/volume] corrected for nucleated erythrocytes in Blood by Automated coun 4.0-11.0 [facility] Lymphocytes Auto (Bld) [#/Vo l]on 10-13-2024 Lymphocytes (Bld) [#/Vol] Lymphocytes [#/volume] in Blood by Automated count 1.2-3.8 [facility] Lymphocytes/100 WBC Auto (Bl d)on 10-13-2024 Lymphocytes/100 WBC (Bld) Lymphocytes/100 leukocytes in Blood by Automated count 20.5-60.0 [facility] MCH Auto (RBC) [Entitic mass ]on 10-13-2024 MCH (RBC) [Entitic mass] MCH [Entitic ma ss] by Automated count 26.7-34.0 [facility] MCHC Auto (RBC) [Mass/Vol]on 10-13-2024 MCHC (RBC) [Mass/Vol] MCHC [Mass/volume] by Automated count 29.9-35.2 [facility] MCV Auto (RBC) [Entitic vol] on 10-13-2024 MCV (RBC) [Entitic vol] MCV [Entitic vol ume] by Automated count 81.0-99.0 [facility] Monocytes Auto (Bld) [#/Vol] on 10-13-2024 Monocytes (Bld) [#/Vol] Automated blood monocyte count 0.3-0.8 [facility] Monocytes/100 WBC Auto (Bld) on 10-13-2024 Monocytes/100 WBC (Bld) Automated monocyte % 1. 7-12.0 [facility] Neutrophils Auto (Bld) [#/Vo l]on 10-13-2024 Neutrophils (Bld) [#/Vol] Neutrophils [#/volume] in Blood by Automated count 1.4-6.5 [facility] Neutrophils/100 WBC Auto (Bl d)on 10-13-2024 Neutrophils/100 WBC (Bld) Automated neutrophil % 43.0-75.0 [facility] No Panel Informationon 10-13 Eosinophils # (Auto) 0.1 10 3/uL 0.0-0.7 [facility] Immature Granulocyte # (Auto) 0.04 10 3/uL High 0.00-0.03 [facility] 0.1 10 3/uL 0.0-0.7 [facility] 2.6 g/dL Low 3.4-5.0 [facility] 75 U/L 46-116 [facility] 15 U/L 14-59 [facility] 12 U/L Low 15-37 [facility] 0.04 10 3/uL High 0.00-0.03 [facility] 17.7 [facility] 0.5 % 0.0-0.5 [facility] 49.0 mg/dL High 7.0-18.0 [facility] 7.9 mg/dL Low 8.5-10.1 [facility] 112 mmol/L High 98-107 [facility] 22.5 mmol/L 21.0-32.0 [facility] 2.77 mg/dL High 0.55-1.02 [facility] 20 Low >=60 mL/min/1.7 3m 2 [facility] 138 mg/dL High 74-106 [facility] 4.5 mmol/L 3.5-5.1 [facility] 145 mmol/L 136-145 [facility] 0.8 mg/dL 0.2-1.0 [facility] 5.4 g/dL Low 6.4-8.2 [facility] Platelet mean volume Auto (B ld) [Entitic vol]on 10-13-2024 Platelet mean volume (Bld) [Entitic vol] Platelet mean volume [Entitic volume] in Blood by Automated count 9.5-13.5 [facility] Platelets Auto (Bld) [#/Vol] on 10-13-2024 Platelets (Bld) [#/Vol] Platelets [#/vol ume] in Blood by Automated count 150-450 [facility] RBC Auto (Bld) [#/Vol]on RBC (Bld) [#/Vol] Erythrocytes [#/volu me] in Blood by Automated count Low 4.20-5.40 [facility] Serum or plasma albumin/glob ulin mass ratioon 10-13-2024 Albumin/Globulin [Mass ratio] Serum or plasma albumin/globulin mass ratio [facility] Serum or plasma anion gap de terminationon 10-13-2024 Anion gap [Moles/Vol] Serum or plasma an ion gap determination [facility] Basophils Auto (Bld) [#/Vol] on 10-12-2024 Basophils (Bld) [#/Vol] Automated basophil count 0.0-0.1 [facility] Basophils/100 WBC Auto (Bld) on 10-12-2024 Basophils/100 WBC (Bld) Automated basophil % 0. 2-2.0 [facility] Eosinophils/100 WBC Auto (Bl d)on 10-12-2024 Eosinophils/100 WBC (Bld) Automated eosinophil % 0.9-7.0 [facility] Erythrocyte distribution wid th Auto (RBC) [Ratio]on 10-12-2024 Erythrocyte distribution width (RBC) [Ratio] Erythrocyte distribution width [Ratio] by Automated count 11.0-15.0 [facility] Estimated glomerular filtrat ion rate (GFR) non- Americanon 10-12-2024 GFR/1.73 sq M.predicted among non-blacks MDRD (S/P/Bld) [Vol rate/Area] Estimated glomerular filtration rate (GFR) non- Low >=60 mL/min/1.7 3m 2 [facility] Globulin Calc (S) [Mass/Vol] on 10-12-2024 Globulin (S) [Mass/Vol] Serum globulin measurement by calculation (mass/volume) [facility] Hematocrit Auto (Bld) [Volum e fraction]on 10-12-2024 Hematocrit (Bld) [Volume fraction] Hematocrit [Volume Fraction] of Blood by Automated count 36.0-48.0 [facility] Hemoglobin [Mass/volume] in Bloodon 10-12-2024 Hemoglobin (Bld) [Mass/Vol] Hemoglobin [Mass/volume] in Blood Low 12.0-16.0 [facility] Laboratory - Chemistry and C hemistry - challengeon 10-12-2024 Albumin [Mass/Vol] 2.3 g/dL Low 3.4-5.0 [facility] ALP [Catalytic activity/Vol] 66 U/L 46-116 [facility] ALT [Catalytic activity/Vol] 13 U/L Low 14-59 [facility] AST [Catalytic activity/Vol] 10 U/L Low 15-37 [facility] Bilirubin [Mass/Vol] 0.3 mg/dL 0.2-1.0 [facility] Calcium [Mass/Vol] 8.1 mg/dL Low 8.5-10.1 [facility] Chloride [Moles/Vol] 112 mmol/L High 98-107 [facility] CO2 [Moles/Vol] 22.7 mmol/L 21.0-32.0 [facility] Creatinine [Mass/Vol] 3.09 mg/dL High 0.55-1.02 [facility] GFR/1.73 sq M.predicted MDRD (S/P/Bld) [Vol rate/Area] 18 mL/min/{1.73_m2} Low >=60 mL/min/1.7 3m 2 [facility] Glucose [Mass/Vol] 138 mg/dL High 74-106 [facility] Potassium [Moles/Vol] 4.7 mmol/L 3.5-5.1 [facility] Protein [Mass/Vol] 4.9 g/dL Low 6.4-8.2 [facility] Sodium [Moles/Vol] 144 mmol/L 136-145 [facility] Urea nitrogen [Mass/Vol] 69.0 mg/dL High 7.0-18.0 [facility] Urea nitrogen/Creatinine [Mass ratio] 22.3 mg/mg [facility] Laboratory - Hematology and Cell countson 10-12-2024 Immature granulocytes/100 WBC (Bld) 0.3 % 0.0-0.5 [facility] Leukocytes [#/volume] correc dominick for nucleated erythrocytes in Blood by Automated counon 10-12-2024 WBC corrected for nucl RBC Auto (Bld) [#/Vol] Leukocytes [#/volume] corrected for nucleated erythrocytes in Blood by Automated coun 4.0-11.0 [facility] Lymphocytes Auto (Bld) [#/Vo l]on 10-12-2024 Lymphocytes (Bld) [#/Vol] Lymphocytes [#/volume] in Blood by Automated count 1.2-3.8 [facility] Lymphocytes/100 WBC Auto (Bl d)on 10-12-2024 Lymphocytes/100 WBC (Bld) Lymphocytes/100 leukocytes in Blood by Automated count 20.5-60.0 [facility] MCH Auto (RBC) [Entitic mass ]on 10-12-2024 MCH (RBC) [Entitic mass] MCH [Entitic ma ss] by Automated count 26.7-34.0 [facility] MCHC Auto (RBC) [Mass/Vol]on 10-12-2024 MCHC (RBC) [Mass/Vol] MCHC [Mass/volume] by Automated count 29.9-35.2 [facility] MCV Auto (RBC) [Entitic vol] on 10-12-2024 MCV (RBC) [Entitic vol] MCV [Entitic vol ume] by Automated count High 81.0-99.0 [facility] Monocytes Auto (Bld) [#/Vol] on 10-12-2024 Monocytes (Bld) [#/Vol] Automated blood monocyte count 0.3-0.8 [facility] Monocytes/100 WBC Auto (Bld) on 10-12-2024 Monocytes/100 WBC (Bld) Automated monocyte % 1. 7-12.0 [facility] Neutrophils Auto (Bld) [#/Vo l]on 10-12-2024 Neutrophils (Bld) [#/Vol] Neutrophils [#/volume] in Blood by Automated count 1.4-6.5 [facility] Neutrophils/100 WBC Auto (Bl d)on 10-12-2024 Neutrophils/100 WBC (Bld) Automated neutrophil % 43.0-75.0 [facility] No Panel Informationon 10-12 Helicobacter pylori Urease Test Negative [facility] Negative [facility] Eosinophils # (Auto) 0.1 10 3/uL 0.0-0.7 [facility] Immature Granulocyte # (Auto) 0.02 10 3/uL 0.00-0.03 [facility] 0.1 10 3/uL 0.0-0.7 [facility] 2.3 g/dL Low 3.4-5.0 [facility] 66 U/L 46-116 [facility] 13 U/L Low 14-59 [facility] 10 U/L Low 15-37 [facility] 0.02 10 3/uL 0.00-0.03 [facility] 22.3 [facility] 0.3 % 0.0-0.5 [facility] 69.0 mg/dL High 7.0-18.0 [facility] 8.1 mg/dL Low 8.5-10.1 [facility] 112 mmol/L High 98-107 [facility] 22.7 mmol/L 21.0-32.0 [facility] 3.09 mg/dL High 0.55-1.02 [facility] 18 Low >=60 mL/min/1.7 3m 2 [facility] 138 mg/dL High 74-106 [facility] 4.7 mmol/L 3.5-5.1 [facility] 144 mmol/L 136-145 [facility] 0.3 mg/dL 0.2-1.0 [facility] 4.9 g/dL Low 6.4-8.2 [facility] No Panel InformationOrdered By: Yuniel Huggins on 10-12-2024 Miscellaneous Pathology Test See comment [facility] Comment on above: See report. Scanned copy available in EMR. See comment [facility] Pathology Request for Lab Co rpon 10-12-2024 Pathology Request for Lab Elizabeth Normal [facility] Comment on above: Order Comment: PATHO LOGY GI SPECIMEN Result Comment: See report. Scanned copy available in EMR. PERFORMED BY: [place] [address] PATHOLOGIST FACILITIES MECHANICAL DESIGN ENGINEER CARLOS A CARD M.D. Performed By: #### P ATH TO [facility] #### [address] Platelet mean volume Auto (B ld) [Entitic vol]on 10-12-2024 Platelet mean volume (Bld) [Entitic vol] Platelet mean volume [Entitic volume] in Blood by Automated count 9.5-13.5 [facility] Platelets Auto (Bld) [#/Vol] on 10-12-2024 Platelets (Bld) [#/Vol] Platelets [#/vol ume] in Blood by Automated count 150-450 [facility] RBC Auto (Bld) [#/Vol]on RBC (Bld) [#/Vol] Erythrocytes [#/volu me] in Blood by Automated count Low 4.20-5.40 [facility] Serum or plasma albumin/glob ulin mass ratioon 10-12-2024 Albumin/Globulin [Mass ratio] Serum or plasma albumin/globulin mass ratio [facility] Serum or plasma anion gap de terminationon 10-12-2024 Anion gap [Moles/Vol] Serum or plasma an ion gap determination [facility] Surgical Pathologyon 024 [facility] Basophils Auto (Bld) [#/Vol] on 10-11-2024 Basophils (Bld) [#/Vol] Automated basophil count 0.0-0.1 [facility] Basophils/100 WBC Auto (Bld) on 10-11-2024 Basophils/100 WBC (Bld) Automated basophil % 0. 2-2.0 [facility] Eosinophils/100 WBC Auto (Bl d)on 10-11-2024 Eosinophils/100 WBC (Bld) Automated eosinophil % Low 0.9-7.0 [facility] Erythrocyte distribution wid th Auto (RBC) [Ratio]on 10-11-2024 Erythrocyte distribution width (RBC) [Ratio] Erythrocyte distribution width [Ratio] by Automated count 11.0-15.0 [facility] Estimated glomerular filtrat ion rate (GFR) non- Americanon 10-11-2024 GFR/1.73 sq M.predicted among non-blacks MDRD (S/P/Bld) [Vol rate/Area] Estimated glomerular filtration rate (GFR) non- Low >=60 mL/min/1.7 3m 2 [facility] Globulin Calc (S) [Mass/Vol] on 10-11-2024 Globulin (S) [Mass/Vol] Serum globulin measurement by calculation (mass/volume) [facility] Hematocrit Auto (Bld) [Volum e fraction]on 10-11-2024 Hematocrit (Bld) [Volume fraction] Hematocrit [Volume Fraction] of Blood by Automated count Critically low 36.0-48.0 [facility] Comment on above: RESULTS CALLED TO HAZEL MUNOZ RN @BY Shanti Villagomez at 1851 Hemoglobin [Mass/volume] in Bloodon 10-11-2024 Hemoglobin (Bld) [Mass/Vol] Hemoglobin [Mass/volume] in Blood Low 12.0-16.0 [facility] Laboratory - Chemistry and C hemistry - challengeon 10-11-2024 Albumin [Mass/Vol] 2.1 g/dL Low 3.4-5.0 [facility] ALP [Catalytic activity/Vol] 69 U/L 46-116 [facility] ALT [Catalytic activity/Vol] 12 U/L Low 14-59 [facility] AST [Catalytic activity/Vol] 10 U/L Low 15-37 [facility] Bilirubin [Mass/Vol] 0.3 mg/dL 0.2-1.0 [facility] Calcium [Mass/Vol] 8.1 mg/dL Low 8.5-10.1 [facility] Chloride [Moles/Vol] 111 mmol/L High 98-107 [facility] CO2 [Moles/Vol] 19.9 mmol/L Low 21.0-32.0 [facility] Creatinine [Mass/Vol] 2.86 mg/dL High 0.55-1.02 [facility] GFR/1.73 sq M.predicted MDRD (S/P/Bld) [Vol rate/Area] 19 mL/min/{1.73_m2} Low >=60 mL/min/1.7 3m 2 [facility] Glucose [Mass/Vol] 162 mg/dL High 74-106 [facility] Potassium [Moles/Vol] 4.6 mmol/L 3.5-5.1 [facility] Protein [Mass/Vol] 4.8 g/dL Low 6.4-8.2 [facility] Sodium [Moles/Vol] 143 mmol/L 136-145 [facility] Urea nitrogen [Mass/Vol] 86.0 mg/dL Critically high 7.0-18 .0 [facility] Comment on above: RESULTS CALLED TO MYRTLE SAL(RN)/MED SURG Urea nitrogen/Creatinine [Mass ratio] 30.1 mg/mg [facility] Laboratory - Hematology and Cell countson 10-11-2024 Immature granulocytes/100 WBC (Bld) 0.2 % 0.0-0.5 [facility] Leukocytes [#/volume] correc dominick for nucleated erythrocytes in Blood by Automated counon 10-11-2024 WBC corrected for nucl RBC Auto (Bld) [#/Vol] Leukocytes [#/volume] corrected for nucleated erythrocytes in Blood by Automated coun 4.0-11.0 [facility] Lymphocytes Auto (Bld) [#/Vo l]on 10-11-2024 Lymphocytes (Bld) [#/Vol] Lymphocytes [#/volume] in Blood by Automated count High 1.2-3.8 [facility] Lymphocytes/100 WBC Auto (Bl d)on 10-11-2024 Lymphocytes/100 WBC (Bld) Lymphocytes/100 leukocytes in Blood by Automated count 20.5-60.0 [facility] MCH Auto (RBC) [Entitic mass ]on 10-11-2024 MCH (RBC) [Entitic mass] MCH [Entitic ma ss] by Automated count 26.7-34.0 [facility] MCHC Auto (RBC) [Mass/Vol]on 10-11-2024 MCHC (RBC) [Mass/Vol] MCHC [Mass/volume] by Automated count 29.9-35.2 [facility] MCV Auto (RBC) [Entitic vol] on 10-11-2024 MCV (RBC) [Entitic vol] MCV [Entitic vol ume] by Automated count High 81.0-99.0 [facility] Monocytes Auto (Bld) [#/Vol] on 10-11-2024 Monocytes (Bld) [#/Vol] Automated blood monocyte count 0.3-0.8 [facility] Monocytes/100 WBC Auto (Bld) on 10-11-2024 Monocytes/100 WBC (Bld) Automated monocyte % 1. 7-12.0 [facility] Neutrophils Auto (Bld) [#/Vo l]on 10-11-2024 Neutrophils (Bld) [#/Vol] Neutrophils [#/volume] in Blood by Automated count 1.4-6.5 [facility] Neutrophils/100 WBC Auto (Bl d)on 10-11-2024 Neutrophils/100 WBC (Bld) Automated neutrophil % Low 43.0-75.0 [facility] No Panel Informationon 10-11 Eosinophils # (Auto) 0.0 10 3/uL 0.0-0.7 [facility] Immature Granulocyte # (Auto) 0.02 10 3/uL 0.00-0.03 [facility] 0.0 10 3/uL 0.0-0.7 [facility] 2.1 g/dL Low 3.4-5.0 [facility] 69 U/L 46-116 [facility] 12 U/L Low 14-59 [facility] 10 U/L Low 15-37 [facility] 0.02 10 3/uL 0.00-0.03 [facility] 30.1 [facility] 0.2 % 0.0-0.5 [facility] 86.0 mg/dL Critically high 7.0-18.0 [facility] 8.1 mg/dL Low 8.5-10.1 [facility] 111 mmol/L High 98-107 [facility] 19.9 mmol/L Low 21.0-32.0 [facility] 2.86 mg/dL High 0.55-1.02 [facility] 19 Low >=60 mL/min/1.7 3m 2 [facility] 162 mg/dL High 74-106 [facility] 4.6 mmol/L 3.5-5.1 [facility] 143 mmol/L 136-145 [facility] 0.3 mg/dL 0.2-1.0 [facility] 4.8 g/dL Low 6.4-8.2 [facility] Platelet mean volume Auto (B ld) [Entitic vol]on 10-11-2024 Platelet mean volume (Bld) [Entitic vol] Platelet mean volume [Entitic volume] in Blood by Automated count 9.5-13.5 [facility] Platelets Auto (Bld) [#/Vol] on 10-11-2024 Platelets (Bld) [#/Vol] Platelets [#/vol ume] in Blood by Automated count 150-450 [facility] RBC Auto (Bld) [#/Vol]on RBC (Bld) [#/Vol] Erythrocytes [#/volu me] in Blood by Automated count Low 4.20-5.40 [facility] Serum or plasma albumin/glob ulin mass ratioon 10-11-2024 Albumin/Globulin [Mass ratio] Serum or plasma albumin/globulin mass ratio [facility] Serum or plasma anion gap de terminationon 10-11-2024 Anion gap [Moles/Vol] Serum or plasma an ion gap determination [facility] Basophils Auto (Bld) [#/Vol] on 10-10-2024 Basophils (Bld) [#/Vol] Automated basophil count 0.0-0.1 [facility] Basophils/100 WBC Auto (Bld) on 10-10-2024 Basophils/100 WBC (Bld) Automated basophil % 0. 2-2.0 [facility] Eosinophils/100 WBC Auto (Bl d)on 10-10-2024 Eosinophils/100 WBC (Bld) Automated eosinophil % Low 0.9-7.0 [facility] Erythrocyte distribution wid th Auto (RBC) [Ratio]on 10-10-2024 Erythrocyte distribution width (RBC) [Ratio] Erythrocyte distribution width [Ratio] by Automated count 11.0-15.0 [facility] Estimated glomerular filtrat ion rate (GFR) non- Americanon 10-10-2024 GFR/1.73 sq M.predicted among non-blacks MDRD (S/P/Bld) [Vol rate/Area] Estimated glomerular filtration rate (GFR) non- Low >=60 mL/min/1.7 3m 2 [facility] Globulin Calc (S) [Mass/Vol] on 10-10-2024 Globulin (S) [Mass/Vol] Serum globulin measurement by calculation (mass/volume) [facility] Hematocrit Auto (Bld) [Volum e fraction]on 10-10-2024 Hematocrit (Bld) [Volume fraction] Hematocrit [Volume Fraction] of Blood by Automated count Low 36.0-48.0 [facility] Hemoglobin [Mass/volume] in Bloodon 10-10-2024 Hemoglobin (Bld) [Mass/Vol] Hemoglobin [Mass/volume] in Blood Low 12.0-16.0 [facility] Hemoglobin.gastrointestinal [Presence] in Stoolon 10-10-2024 Hemoglobin.gastrointesti nal Ql (Stl) Hemoglobin.gastrointestin al [Presence] in Stool Abnormal [facility] Laboratory - Chemistry and C hemistry - challengeon 10-10-2024 Albumin [Mass/Vol] 2.4 g/dL Low 3.4-5.0 [facility] ALP [Catalytic activity/Vol] 87 U/L 46-116 [facility] ALT [Catalytic activity/Vol] 15 U/L 14-59 [facility] AST [Catalytic activity/Vol] 10 U/L Low 15-37 [facility] Bilirubin [Mass/Vol] 0.5 mg/dL 0.2-1.0 [facility] Bilirubin.direct [Mass/Vol] 0.1 mg/dL 0.0-0.2 [facility] Calcium [Mass/Vol] 8.8 mg/dL 8.5-10.1 [facility] Chloride [Moles/Vol] 110 mmol/L High 98-107 [facility] CO2 [Moles/Vol] 19.4 mmol/L Low 21.0-32.0 [facility] Creatinine [Mass/Vol] 2.78 mg/dL High 0.55-1.02 [facility] GFR/1.73 sq M.predicted MDRD (S/P/Bld) [Vol rate/Area] 20 mL/min/{1.73_m2} Low >=60 mL/min/1.7 3m 2 [facility] Glucose [Mass/Vol] 191 mg/dL High 74-106 [facility] Potassium [Moles/Vol] 5.3 mmol/L High 3.5-5.1 [facility] Protein [Mass/Vol] 5.8 g/dL Low 6.4-8.2 [facility] Sodium [Moles/Vol] 141 mmol/L 136-145 [facility] Urea nitrogen [Mass/Vol] 67.0 mg/dL High 7.0-18.0 [facility] Urea nitrogen/Creatinine [Mass ratio] 24.1 mg/mg [facility] Laboratory - Hematology and Cell countson 10-10-2024 Immature granulocytes/100 WBC (Bld) 0.2 % 0.0-0.5 [facility] Leukocytes [#/volume] correc dominick for nucleated erythrocytes in Blood by Automated counon 10-10-2024 WBC corrected for nucl RBC Auto (Bld) [#/Vol] Leukocytes [#/volume] corrected for nucleated erythrocytes in Blood by Automated coun 4.0-11.0 [facility] Lymphocytes Auto (Bld) [#/Vo l]on 10-10-2024 Lymphocytes (Bld) [#/Vol] Lymphocytes [#/volume] in Blood by Automated count 1.2-3.8 [facility] Lymphocytes/100 WBC Auto (Bl d)on 10-10-2024 Lymphocytes/100 WBC (Bld) Lymphocytes/100 leukocytes in Blood by Automated count 20.5-60.0 [facility] MCH Auto (RBC) [Entitic mass ]on 10-10-2024 MCH (RBC) [Entitic mass] MCH [Entitic ma ss] by Automated count 26.7-34.0 [facility] MCHC Auto (RBC) [Mass/Vol]on 10-10-2024 MCHC (RBC) [Mass/Vol] MCHC [Mass/volume] by Automated count 29.9-35.2 [facility] MCV Auto (RBC) [Entitic vol] on 10-10-2024 MCV (RBC) [Entitic vol] MCV [Entitic vol ume] by Automated count High 81.0-99.0 [facility] Monocytes Auto (Bld) [#/Vol] on 10-10-2024 Monocytes (Bld) [#/Vol] Automated blood monocyte count 0.3-0.8 [facility] Monocytes/100 WBC Auto (Bld) on 10-10-2024 Monocytes/100 WBC (Bld) Automated monocyte % 1. 7-12.0 [facility] Neutrophils Auto (Bld) [#/Vo l]on 10-10-2024 Neutrophils (Bld) [#/Vol] Neutrophils [#/volume] in Blood by Automated count 1.4-6.5 [facility] Neutrophils/100 WBC Auto (Bl d)on 10-10-2024 Neutrophils/100 WBC (Bld) Automated neutrophil % 43.0-75.0 [facility] No Panel Informationon 10-10 Eosinophils # (Auto) 0.0 10 3/uL 0.0-0.7 [facility] Immature Granulocyte # (Auto) 0.02 10 3/uL 0.00-0.03 [facility] Troponin I High Sensitivity 4.7 pg/mL 4.0-51.3 [facility] Comment on above: CUT-OFF POINTS [...] IN CONJUNCTIONWITH OTHER DIAGNOSTIC AND CLINICAL INFORMATION. 4.7 pg/mL 4.0-51.3 [facility] 2.4 g/dL Low 3.4-5.0 [facility] 24.1 [facility] 0.0 10 3/uL 0.0-0.7 [facility] 87 U/L 46-116 [facility] 67.0 mg/dL High 7.0-18.0 [facility] 15 U/L 14-59 [facility] 8.8 mg/dL 8.5-10.1 [facility] 10 U/L Low 15-37 [facility] 110 mmol/L High 98-107 [facility] 0.1 mg/dL 0.0-0.2 [facility] 19.4 mmol/L Low 21.0-32.0 [facility] 0.02 10 3/uL 0.00-0.03 [facility] 2.78 mg/dL High 0.55-1.02 [facility] 0.2 % 0.0-0.5 [facility] 0.5 mg/dL 0.2-1.0 [facility] 20 Low >=60 mL/min/1.7 3m 2 [facility] 5.8 g/dL Low 6.4-8.2 [facility] 191 mg/dL High 74-106 [facility] 5.3 mmol/L High 3.5-5.1 [facility] 141 mmol/L 136-145 [facility] Platelet mean volume Auto (B ld) [Entitic vol]on 10-10-2024 Platelet mean volume (Bld) [Entitic vol] Platelet mean volume [Entitic volume] in Blood by Automated count 9.5-13.5 [facility] Platelets Auto (Bld) [#/Vol] on 10-10-2024 Platelets (Bld) [#/Vol] Platelets [#/vol ume] in Blood by Automated count 150-450 [facility] RBC Auto (Bld) [#/Vol]on RBC (Bld) [#/Vol] Erythrocytes [#/volu me] in Blood by Automated count Low 4.20-5.40 [facility] Serum or plasma albumin/glob ulin mass ratioon 10-10-2024 Albumin/Globulin [Mass ratio] Serum or plasma albumin/globulin mass ratio [facility] Serum or plasma anion gap de terminationon 10-10-2024 Anion gap [Moles/Vol] Serum or plasma an ion gap determination [facility] Estimated glomerular filtrat ion rate (GFR) non- Americanon 09-29-2024 GFR/1.73 sq M.predicted among non-blacks MDRD (S/P/Bld) [Vol rate/Area] Estimated glomerular filtration rate (GFR) non- Low >=60 mL/min/1.7 3m 2 [facility] Laboratory - Chemistry and C hemistry - challengeon 09-29-2024 Calcium [Mass/Vol] 8.9 mg/dL 8.5-10.1 [facility] Chloride [Moles/Vol] 108 mmol/L High 98-107 [facility] CO2 [Moles/Vol] 25.2 mmol/L 21.0-32.0 [facility] Creatinine [Mass/Vol] 2.73 mg/dL High 0.55-1.02 [facility] GFR/1.73 sq M.predicted MDRD (S/P/Bld) [Vol rate/Area] 20 mL/min/{1.73_m2} Low >=60 mL/min/1.7 3m 2 [facility] Glucose [Mass/Vol] 183 mg/dL High 74-106 [facility] Potassium [Moles/Vol] 5.6 mmol/L High 3.5-5.1 [facility] Sodium [Moles/Vol] 143 mmol/L 136-145 [facility] Urea nitrogen [Mass/Vol] 32.0 mg/dL High 7.0-18.0 [facility] Urea nitrogen/Creatinine [Mass ratio] 11.7 mg/mg [facility] No Panel Informationon 09-29 11.7 [facility] 32.0 mg/dL High 7.0-18.0 [facility] 8.9 mg/dL 8.5-10.1 [facility] 108 mmol/L High 98-107 [facility] 25.2 mmol/L 21.0-32.0 [facility] 2.73 mg/dL High 0.55-1.02 [facility] 20 Low >=60 mL/min/1.7 3m 2 [facility] 183 mg/dL High 74-106 [facility] 5.6 mmol/L High 3.5-5.1 [facility] 143 mmol/L 136-145 [facility] Serum or plasma anion gap de terminationon 09-29-2024 Anion gap [Moles/Vol] Serum or plasma an ion gap determination [facility] Basic Metabolic Panelon Creatinine Clr Calc Pharmacy 19.25 Normal [facility] Comment on above: Result Comment: PERF ORMED BY: [place] [address] PATHOLOGIST FACILITIES MECHANICAL DESIGN ENGINEER LUIS DEE M.D. Performed By: #### B MP #### [place] [address] [place] GFR/1.73 sq M.predicted MDRD (S/P/Bld) [Vol rate/Area] 18.292 mL/min/{1.73_m2} Normal [facility] Comment on above: Performed By: #### B MP #### [facility] [address] [place] [address] [place] Calcium [Mass/volume] in Ser um or PlasmaOrdered By: Trent Patterson on 09-19-2024 Calcium [Mass/Vol] 7.6 mg/dL Low 8.6-10.3 [facility] Comment on above: Performed By: #### B MP #### [facility] [address] [place] [address] [place] Calcium [Mass/Vol] Calcium [Mass/volume ] in Serum or Plasma Low 8.6-10.3 [facility] Capillary blood glucose leonor urement by glucometer (mass/volume)Ordered By: Trent Patterson on 09-19-2024 Glucose [Mass/Vol] 137 mg/dL Normal [facility] Comment on above: Random Glucose Refer ence Range is dependent on time and content of last meal. Glucose of more than 200 mg/dL in a nonstressed, ambulatory subject supports the diagnosis of Diabetes Mellitus. Result Comment: [place] [facility] Glucose Reference Range is dependent on time and content of last meal. Glucose of more than 200 mg/dL in a nonstressed, ambulatory subject supports the diagnosis of Diabetes Mellitus. PERFORMED BY: [place] [address] PATHOLOGIST FACILITIES MECHANICAL DESIGN ENGINEER LUIS DEE M.D. Performed By: #### B MP #### [facility] [address] [place] [address] Carbon dioxide, total [Moles /volume] in Serum or PlasmaOrdered By: Trent Patterson on 09-19-2024 CO2 [Moles/Vol] 20.5 mmol/L Low 21.0-31.0 [facility] Comment on above: Performed By: #### B MP #### [address] CO2 [Moles/Vol] Carbon dioxide, tota l [Moles/volume] in Serum or Plasma Low 21.0-31.0 [facility] Chloride [Moles/volume] in S amanda or PlasmaOrdered By: Trent Patterson on 09-19-2024 Chloride [Moles/Vol] 115 mmol/L High 98-107 [facility] Comment on above: Performed By: #### B MP #### [facility] [address] [place] [address] [place] Chloride [Moles/Vol] Chloride [Moles/vol ume] in Serum or Plasma High 98-107 [facility] Creatinine [Mass/volume] in Serum or PlasmaOrdered By: Trent Patterson on 09-19-2024 Creatinine [Mass/Vol] 2.55 mg/dL High 0.60-1.20 [facility] Comment on above: Performed By: #### B #### [facility] [address] Creatinine [Mass/Vol] Creatinine [Mass/v olume] in Serum or Plasma High 0.60-1.20 [facility] echo transthoracicon [facility] echo transthoracic [facility] [address] [place] [address] [id number] Echocardiogram Signed Patient: Hailee Trivedi MR#: [id number] 306 : 1940 Acct:[id number] Age/Sex: 84 / F ADM Date: 09/18/24 Loc: Room: [address] [place] [address] Type: ADM INOo Attending Dr: Trent Patterson MD Ordering Provider: Trent Patterson MD Date of Service: 09/18/2404/06/1148 [facility] echo transthoracic: elevated BNP Copies to: MD Camilla Del Toro MD, [facility] BSA: 2.0 m2 BP: 119/73 mmHg HR: [...] 09/19/24 1128 Signed By: Camilla Estrada MD, [facility] 09/19/24 1618 Normal [facility] Glucose Glucometer (BldC) [M ass/Vol]Ordered By: Trent Patterson on 09-19-2024 Glucose [Mass/Vol] Capillary blood gluc ose measurement by glucometer (mass/volume) [facility] Comment on above: Random Glucose Refer ence Range is dependent on time and content of last meal. Glucose of more than 200 mg/dL in a nonstressed, ambulatory subject supports the diagnosis of Diabetes Mellitus. Glucose Poct Glucometerson 1 11-19-2023 Glucose [Mass/Vol] 177 mg/dL Normal [facility] Comment on above: Result Comment: [place] [facility] Glucose Reference Range is dependent on time and content of last meal. Glucose of more than 200 mg/dL in a nonstressed, ambulatory subject supports the diagnosis of Diabetes Mellitus. PERFORMED BY: [facility] [address] [facility] [place] [address] PATHOLOGIST FACILITIES MECHANICAL DESIGN ENGINEER LUIS DEE M.D. Performed By: #### G LULS #### Point of Care testing , Glucose [Mass/Vol] 108 mg/dL Normal [facility] Comment on above: Result Comment: [place] [facility] Glucose Reference Range is dependent on time and content of last meal. Glucose of more than 200 mg/dL in a nonstressed, ambulatory subject supports the diagnosis of Diabetes Mellitus. PERFORMED BY: [facility] [address] [facility] [address] PATHOLOGIST FACILITIES MECHANICAL DESIGN ENGINEER LUIS DEE M.D. Performed By: #### G LULS ####Point of Care testing, Glucose [Mass/volume] in Ser um or PlasmaOrdered By: Trent Patterson on 09-19-2024 Glucose [Mass/Vol] 103 mg/dL High 70-100 [facility] Comment on above: ADA recommended refe rence rangeRandom Glucose Reference Range is dependent on time and content of last meal. Glucose of more than 200 mg/dL in a nonstressed, ambulatory subject supports the diagnosis of Diabetes Mellitus. Result Comment: [place] [facility] Glucose Reference Range is dependent on time and content of last meal. Glucose of more than 200 mg/dL in a nonstressed, ambulatory subject supports the diagnosis of Diabetes Mellitus. ADA recommended reference range Performed By: #### B MP #### [facility] [address] Glucose [Mass/Vol] Glucose [Mass/volume ] in Serum or Plasma High 70-100 [facility] Comment on above: ADA recommended refe rence rangeRandom Glucose Reference Range is dependent on time and content of last meal. Glucose of more than 200 mg/dL in a nonstressed, ambulatory subject supports the diagnosis of Diabetes Mellitus. No Panel InformationOrdered By: Ternt Patterson on 09-19-2024 Estimated GFR (CKD-EPI) 18.292 mL/Min [facility] Creatinine Clearance (Chem 19.25 [facility] Potassium [Moles/volume] in Serum or PlasmaOrdered By: Trent Patterson on 09-19-2024 Potassium [Moles/Vol] 3.6 mmol/L Normal 3.5-5.1 [facility] Comment on above: Performed By: #### B MP #### [address] Potassium [Moles/Vol] Potassium [Moles/v olume] in Serum or Plasma 3.5-5.1 [facility] Serum or plasma anion gap de terminationOrdered By: Trent Patterson on 09-19-2024 Anion gap [Moles/Vol] 9.1 mmol/L Normal 6.0-15.0 [facility] Comment on above: Performed By: #### B MP #### [address] Anion gap [Moles/Vol] Serum or plasma an ion gap determination 6.0-15.0 [facility] Sodium [Moles/volume] in Ser um or PlasmaOrdered By: Trent Patterson on 09-19-2024 Sodium [Moles/Vol] 141 mmol/L Normal 136-145 [facility] Comment on above: Performed By: #### B MP #### [address] Sodium [Moles/Vol] Sodium [Moles/volume ] in Serum or Plasma 136-145 [facility] Urea nitrogen [Mass/volume] in Serum or PlasmaOrdered By: Trent Patterson on 09-19-2024 Urea nitrogen [Mass/Vol] 37 mg/dL [facility] Comment on above: Performed By: #### B MP #### [address] Urea nitrogen [Mass/Vol] Urea nitrogen [Mass/volume] in Serum or Plasma [facility] Automated basophil %Ordered By: Roseline Overton on 09-18-2024 Basophils/100 WBC (Bld) 0.8 % Normal . [facility] Comment on above: Performed By: #### P ATH TO [facility] #### [address] Automated basophil countOrde red By: Roseline Overton on 09-18-2024 Basophils (Bld) [#/Vol] 0.1 10*3/uL Normal 0.0-0.2 [facility] Comment on above: Result Comment: PERF ORMED BY: [place] [address] PATHOLOGIST FACILITIES MECHANICAL DESIGN ENGINEER LUIS DEE M.D. Performed By: #### P ATH TO [facility] #### [address] Automated blood monocyte cou ntOrdered By: Roseline Overton on 09-18-2024 Monocytes (Bld) [#/Vol] 0.9 10*3/uL High 0.0-0.8 [facility] Comment on above: Performed By: #### P ATH TO [facility] #### [address] Automated eosinophil %Ordere d By: Roseline Overton on 09-18-2024 Eosinophils/100 WBC (Bld) 2.3 % Normal . [facility] Comment on above: Performed By: #### P ATH TO [facility] #### [address] Automated eosinophil countOr dered By: Roseline Overton on 09-18-2024 Eosinophils (Bld) [#/Vol] 0.2 10*3/uL Normal 0.0-0.45 [facility] Comment on above: Performed By: #### P ATH TO [facility] #### [address] Automated monocyte %Ordered By: Roseline Overton on 09-18-2024 Monocytes/100 WBC (Bld) 8.7 % Normal . [facility] Comment on above: Performed By: #### P ATH TO [facility] #### [address] Automated neutrophil %Ordere d By: Roseline Overton on 09-18-2024 Neutrophils/100 WBC (Bld) 81.6 % Normal . [facility] Comment on above: Performed By: #### P ATH TO [facility] #### [address] Basic Metabolic Panelon 110 Anion gap [Moles/Vol] 11.5 mmol/L Normal 6.0-15.0 [facility] Comment on above: Performed By: #### P ATH TO [facility] #### [address] Calcium [Mass/Vol] 7.5 mg/dL Low 8.6-10.3 [facility] Comment on above: Performed By: #### P ATH TO [facility] #### [place] [address] [place] Chloride [Moles/Vol] 112 mmol/L High 98-107 [facility] Comment on above: Performed By: #### P ATH TO [facility] #### [address] CO2 [Moles/Vol] 17.4 mmol/L Low 21.0-31.0 [facility] Comment on above: Performed By: #### P ATH TO [facility] #### [facility] [address] [place] [address] [place] Creatinine [Mass/Vol] 2.58 mg/dL High 0.60-1.20 [facility] Comment on above: Performed By: #### P ATH TO [facility] #### [facility] [address] [place] [address] [place] Creatinine Clr Calc Pharmacy 18.85 Normal [facility] Comment on above: Performed By: #### P ATH TO [facility] #### [facility] [address] [place] [address] [place] GFR/1.73 sq M.predicted MDRD (S/P/Bld) [Vol rate/Area] 18.037 mL/min/{1.73_m2} Normal [facility] Comment on above: Performed By: #### P ATH TO [facility] #### [place] [address] [place] Glucose [Mass/Vol] 112 mg/dL High 70-100 [facility] Comment on above: Result Comment: [place] Glucose Reference Range is dependent on time and content of last meal. Glucose of more than 200 mg/dL in a nonstressed, ambulatory subject supports the diagnosis of Diabetes Mellitus. ADA recommended reference range Performed By: #### P ATH TO [facility] #### [place] [address] [place] Potassium [Moles/Vol] 3.9 mmol/L Normal 3.5-5.1 [facility] Comment on above: Performed By: #### P ATH TO [facility] #### [facility] [address] [place] [address] [place] Sodium [Moles/Vol] 137 mmol/L Normal 136-145 [facility] Comment on above: Performed By: #### P ATH TO [facility] #### [facility] [address] [place] [address] [place] Urea nitrogen [Mass/Vol] 40 mg/dL High 7-25 [facility] Comment on above: Performed By: #### P ATH TO [facility] #### [facility] [address] [place] [address] [place] Basophils Auto (Bld) [#/Vol] Ordered By: Roseline Overton on 09-18-2024 Basophils (Bld) [#/Vol] Automated basophil count 0.0-0.2 [facility] Basophils/100 WBC Auto (Bld) Ordered By: Roseline Overton on 09-18-2024 Basophils/100 WBC (Bld) Automated basophil % . [facility] Complete Blood Count Auto Di ffon 09-18-2024 Mean Corpuscular HGB Conc 33.8 g/dL Normal 32.0-35.0 [facility] Comment on above: Performed By: #### P ATH TO [facility] #### [facility] [address] [place] [address] NRBC% 0.0 /100{WBC} Normal 0-0.5 [facility] Comment on above: Performed By: #### P ATH TO [facility] #### [address] ECG 12 lead ECGon 09-18-2024 ECG 12 lead ECG [facility] [place] [address] Electrocardiograph Report Signed Patient: Hailee Trivedi MR#: [id number] 306 : 1940 Acct:[id number] Age/Sex: 84 / F ADM Date: 09/18/24 Loc: Room: [address] [place] [address] Type: ADM INOo Attending Dr: Trent Patterson [...] change was found Confirmed by NATALIE VELAZQUEZ [facility] [place] ([id number]) on 09/19/2024 2:53:36 PM Referred By: Electronically Signed By: CAMILLA ESTRADA MD [facility] Transcribed By: MUS Signed By Camilla Estrada MD, [facility] 09/19/24 1453 Normal [facility] Eosinophils Auto (Bld) [#/Vo l]Ordered By: Roseline Overton on 09-18-2024 Eosinophils (Bld) [#/Vol] Automated eosinophil count 0.0-0.45 [facility] Eosinophils/100 WBC Auto (Bl d)Ordered By: Roseline Overton on 09-18-2024 Eosinophils/100 WBC (Bld) Automated eosinophil % . [facility] Erythrocyte distribution wid th Auto (RBC) [Ratio]Ordered By: Roseline Overton on 09-18-2024 Erythrocyte distribution width (RBC) [Ratio] Erythrocyte distribution width [Ratio] by Automated count 11.9-15.3 [facility] Erythrocyte distribution wid th [Ratio] by Automated countOrdered By: Roseline Overton on 09-18-2024 Erythrocyte distribution width (RBC) [Ratio] 14.1 % Normal 11.9-15.3 [facility] Comment on above: Performed By: #### P ATH TO [facility] #### [facility] [address] Erythrocytes [#/volume] in B lood by Automated countOrdered By: Roseline Overton on 09-18-2024 RBC (Bld) [#/Vol] 3.72 10*6/uL Normal 3.60-5.00 [facility] Comment on above: Performed By: #### P ATH TO [facility] #### [facility] [address] [place] [id number] [facility] Glucose Poct Glucometerson 1 11-18-2023 Glucose [Mass/Vol] 177 mg/dL Normal [facility] Comment on above: Result Comment: [facility] Glucose Reference Range is dependent on time and content of last meal. Glucose of more than 200 mg/dL in a nonstressed, ambulatory subject supports the diagnosis of Diabetes Mellitus. PERFORMED BY: [place] [address] PATHOLOGIST FACILITIES MECHANICAL DESIGN ENGINEER LUIS DEE M.D. Performed By: #### G LULS #### Point of Care testing , Commemt1 Glu2: Cleaned Meter Normal [facility] Comment on above: Result Comment: PERF ORMED BY: [place] [address] PATHOLOGIST FACILITIES MECHANICAL DESIGN ENGINEER LUIS DEE M.D. Performed By: #### G LULS #### Point of Care testing , Glucose [Mass/Vol] 158 mg/dL Normal [facility] Comment on above: Result Comment: [place] [facility] Glucose Reference Range is dependent on time and content of last meal. Glucose of more than 200 mg/dL in a nonstressed, ambulatory subject supports the diagnosis of Diabetes Mellitus. Performed By: #### G LULS #### Point of Care testing , Commemt1 Glu2: Cleaned Meter Normal [facility] Comment on above: Result Comment: PERF ORMED BY: [place] [address] PATHOLOGIST FACILITIES MECHANICAL DESIGN ENGINEER LUIS DEE M.D. Performed By: #### G LULS #### Point of Care testing , Glucose [Mass/Vol] 145 mg/dL Normal [facility] Comment on above: Result Comment: [place] Glucose Reference Range is dependent on time and content of last meal. Glucose of more than 200 mg/dL in a nonstressed, ambulatory subject supports the diagnosis of Diabetes Mellitus. Performed By: #### G LULS #### Point of Care testing , Commemt1 Glu2: Cleaned Meter Normal [facility] Comment on above: Result Comment: PERF ORMED BY: [place] [address] PATHOLOGIST FACILITIES MECHANICAL DESIGN ENGINEER LUIS DEE M.D. Performed By: #### G LULS #### Point of Care testing , Glucose [Mass/Vol] 177 mg/dL Normal [facility] Comment on above: Result Comment: [place] Glucose Reference Range is dependent on time and content of last meal. Glucose of more than 200 mg/dL in a nonstressed, ambulatory subject supports the diagnosis of Diabetes Mellitus. Performed By: #### G LULS #### Point of Care testing , Glucose [Mass/Vol] 111 mg/dL Normal [facility] Comment on above: Result Comment: [facility] Glucose Reference Range is dependent on time and content of last meal. Glucose of more than 200 mg/dL in a nonstressed, ambulatory subject supports the diagnosis of Diabetes Mellitus. PERFORMED BY: [place] [address] PATHOLOGIST FACILITIES MECHANICAL DESIGN ENGINEER LUIS DEE M.D. Performed By: #### B MP #### [address] Hematocrit Auto (Bld) [Volum e fraction]Ordered By: Roseline Overton on 09-18-2024 Hematocrit (Bld) [Volume fraction] Hematocrit [Volume Fraction] of Blood by Automated count 34.0-46.4 [facility] Hematocrit [Volume Fraction] of Blood by Automated countOrdered By: Roseline Overton on 09-18-2024 Hematocrit (Bld) [Volume fraction] 35.5 % Normal 34.0-46.4 [facility] Comment on above: Performed By: #### P ATH TO [facility] #### [address] Hemoglobin [Mass/volume] in BloodOrdered By: Roseline Overton on 09-18-2024 Hemoglobin (Bld) [Mass/Vol] 12.0 g/dL Normal 11.8-15.4 [facility] Comment on above: Performed By: #### P ATH TO [facility] #### [address] Hemoglobin (Bld) [Mass/Vol] Hemoglobin [Mass/volume] in Blood 11.8-15.4 [facility] Leukocytes [#/volume] correc dominick for nucleated erythrocytes in Blood by Automated counOrdered By: Roseline Overton on 09-18-2024 WBC corrected for nucl RBC Auto (Bld) [#/Vol] 9.8 10*3/uL 3.8-11.6 [facility] WBC corrected for nucl RBC Auto (Bld) [#/Vol] Leukocytes [#/volume] corrected for nucleated erythrocytes in Blood by Automated coun 3.8-11.6 [facility] Leukocytes [#/volume] in Blo od by Automated countOrdered By: Roseline Overton on 09-18-2024 WBC (Bld) [#/Vol] 9.8 10*3/uL Normal 3.8-11.6 [facility] Comment on above: Performed By: #### P ATH TO [facility] #### [facility] [address] [place] [address] Lymphocytes Auto (Bld) [#/Vo l]Ordered By: Roseline Overton on 09-18-2024 Lymphocytes (Bld) [#/Vol] Lymphocytes [#/volume] in Blood by Automated count Low 1.00-4.8 [facility] Lymphocytes [#/volume] in Bl ood by Automated countOrdered By: Roseline Overton on 09-18-2024 Lymphocytes (Bld) [#/Vol] 0.7 10*3/uL Low 1.00-4.8 [facility] Comment on above: Performed By: #### P ATH TO [facility] #### [address] Lymphocytes/100 WBC Auto (Bl d)Ordered By: Roseline Overton on 09-18-2024 Lymphocytes/100 WBC (Bld) Lymphocytes/100 leukocytes in Blood by Automated count . [facility] Lymphocytes/100 leukocytes i n Blood by Automated countOrdered By: Roseline Overton on 09-18-2024 Lymphocytes/100 WBC (Bld) 6.6 % Normal . [facility] Comment on above: Performed By: #### P ATH TO [facility] #### [facility] [address] [place], [place] [id number] [facility] MCH Auto (RBC) [Entitic mass ]Ordered By: Roseline Overton on 09-18-2024 MCH (RBC) [Entitic mass] MCH [Entitic ma ss] by Automated count 24.7-34.3 [facility] MCH [Entitic mass] by Automa dominick countOrdered By: Roseline Overton on 09-18-2024 MCH (RBC) [Entitic mass] 32.3 pg Normal 24.7-34.3 [facility] Comment on above: Performed By: #### P ATH TO [facility] #### [facility] [address] MCHC Auto (RBC) [Mass/Vol]Or dered By: Roseline Overton on 09-18-2024 MCHC (RBC) [Mass/Vol] 33.8 g/dL 32.0-35.0 [facility] MCHC (RBC) [Mass/Vol] MCHC [Mass/volume] by Automated count 32.0-35.0 [facility] MCV Auto (RBC) [Entitic vol] Ordered By: Roseline Overton on 09-18-2024 MCV (RBC) [Entitic vol] MCV [Entitic vol ume] by Automated count 80-100 [facility] MCV [Entitic volume] by Auto mated countOrdered By: Roseline Overton on 09-18-2024 MCV (RBC) [Entitic vol] 95.4 fL Normal 80-100 [facility] Comment on above: Performed By: #### P ATH TO [facility] #### [facility] [address] [place] [address] Magnesium [Mass/volume] in S amanda or PlasmaOrdered By: Roseline Overton on 09-18-2024 Magnesium [Mass/Vol] 1.7 mg/dL Low 1.9-2.7 [facility] Comment on above: Result Comment: PERF ORMED BY: [address] [place] [address] PATHOLOGIST FACILITIES MECHANICAL DESIGN ENGINEER LUIS DEE M.D. Performed By: #### P ATH TO [facility] #### [address] Magnesium [Mass/Vol] Magnesium [Mass/vol ume] in Serum or Plasma Low 1.9-2.7 [facility] Monocytes Auto (Bld) [#/Vol] Ordered By: Roseline Overton on 09-18-2024 Monocytes (Bld) [#/Vol] Automated blood monocyte count High 0.0-0.8 [facility] Monocytes/100 WBC Auto (Bld) Ordered By: Roseline Overton on 09-18-2024 Monocytes/100 WBC (Bld) Automated monocyte % . [facility] Neutrophils Auto (Bld) [#/Vo l]Ordered By: Roseline Overton on 09-18-2024 Neutrophils (Bld) [#/Vol] Neutrophils [#/volume] in Blood by Automated count High 1.8-7.7 [facility] Neutrophils [#/volume] in Bl ood by Automated countOrdered By: Roseline Overton on 09-18-2024 Neutrophils (Bld) [#/Vol] 8.0 10*3/uL High 1.8-7.7 [facility] Comment on above: Performed By: #### P ATH TO [facility] #### [facility] [address] Neutrophils/100 WBC Auto (Bl d)Ordered By: Roseline Overton on 09-18-2024 Neutrophils/100 WBC (Bld) Automated neutrophil % . [facility] No Panel InformationOrdered By: Trent Patterson on 09-18-2024 Bedside Glucose Comment Glu2: cleaned meter [facility] Nucleated erythrocytes [Pres ence] in Blood by Automated countOrdered By: Roseline Overton on 09-18-2024 Nucleated RBC Auto Ql (Bld) 0.0 /100{WBC} 0-0.5 [facility] Nucleated RBC Auto Ql (Bld) Nucleated erythrocytes [Presence] in Blood by Automated count 0-0.5 [facility] Platelet mean volume Auto (B ld) [Entitic vol]Ordered By: Roseline Overton on 09-18-2024 Platelet mean volume (Bld) [Entitic vol] Platelet mean volume [Entitic volume] in Blood by Automated count 6.3-10.7 [facility] Platelet mean volume [Entiti c volume] in Blood by Automated countOrdered By: Roseline Overton on 09-18-2024 Platelet mean volume (Bld) [Entitic vol] 10.2 fL Normal 6.3-10.7 [facility] Comment on above: Performed By: #### P ATH TO [facility] #### [facility] [address] [place] [address] [place] Platelets Auto (Bld) [#/Vol] Ordered By: Roseline Overton on 09-18-2024 Platelets (Bld) [#/Vol] Platelets [#/vol ume] in Blood by Automated count Low 150-450 [facility] Platelets [#/volume] in Bloo d by Automated countOrdered By: Roseline Overton on 09-18-2024 Platelets (Bld) [#/Vol] 137 10*3/uL Low 150-450 [facility] Comment on above: Performed By: #### P ATH TO [facility] #### [facility] [address] RBC Auto (Bld) [#/Vol]Ordere d By: Roseline Overton on 09-18-2024 RBC (Bld) [#/Vol] Erythrocytes [#/volu me] in Blood by Automated count 3.60-5.00 [facility] Troponin I High Sensitivityo n 09-18-2024 Troponin I High Sensitivity 21.2 pg/mL High 0.0-15.0 [facility] Comment on above: Result Comment: PERF ORMED BY: [place] [address] PATHOLOGIST FACILITIES MECHANICAL DESIGN ENGINEER LUIS DEE M.D. Performed By: #### B MP #### [facility] [address] [place] [address] Troponin I High Sensitivity 9.1 pg/mL Normal 0.0-15.0 [facility] Comment on above: Result Comment: PERF ORMED BY: [place] [address] PATHOLOGIST FACILITIES MECHANICAL DESIGN ENGINEER LUIS DEE M.D. Performed By: #### H S TROP ####[facility] [address] [place] [address] Troponin I.cardiac [Mass/vol ume] in Serum or Plasma by Detection limit <= 0.01 ng/Ordered By: Roseline Overton on 09-18-2024 Troponin I.cardiac DL <= 0.01 ng/mL [Mass/Vol] 21.2 pg/mL High 0.0-15.0 [facility] Troponin I.cardiac DL <= 0.01 ng/mL [Mass/Vol] Troponin I.cardiac [Mass/volume] in Serum or Plasma by Detection limit <= 0.01 ng/ High 0.0-15.0 [facility] WBC Auto (Bld) [#/Vol]Ordere d By: Roseline Overton on 09-18-2024 WBC (Bld) [#/Vol] Leukocytes [#/volume ] in Blood by Automated count 3.8-11.6 [facility] Activated partial thrombopla stin time (aPTT) in platelet poor plasma by coagulation aOrdered By: Jesse Valdez on 09-17-2024 aPTT Coag (PPP) [Time] 30.4 s 25.1-36.5 [facility] Comment on above: A hematocrit value g reater than 55% may lead to inaccurate results in coagulation testing. Patients having hematocrit values >55% require a special collection tube for coagulation studies. Please contact the laboratory at [phone] for redraw instructions. Alanine aminotransferase [En zymatic activity/volume] in Serum or PlasmaOrdered By: Jesse Valdez on 09-17-2024 ALT [Catalytic activity/Vol] 15 U/L Normal [facility] Comment on above: Performed By: #### P T, CMP, HS TROP, PTT, CK, BNP, MG, TSH3, SCAN CBC ####[facility] ALT [Catalytic activity/Vol] Alanine aminotransferase [Enzymatic activity/volume] in Serum or Plasma [facility] Albumin [Mass/volume] in Ser um or Plasma by Bromocresol green (BCG) dye binding methoOrdered By: Jesse Valdez on 09-17-2024 Albumin BCG dye [Mass/Vol] 2.7 g/dL Low 3.5-5.7 [facility] Albumin BCG dye [Mass/Vol] Albumin [Mass/volume] in Serum or Plasma by Bromocresol green (BCG) dye binding metho Low 3.5-5.7 [facility] Alkaline phosphatase [Enzyma tic activity/volume] in Serum or PlasmaOrdered By: Jesse Valdez on 09-17-2024 ALP [Catalytic activity/Vol] 64 U/L Normal 34-104 [facility] Comment on above: Performed By: #### P T, CMP, HS TROP, PTT, CK, BNP, MG, TSH3, SCAN CBC ####[address] ALP [Catalytic activity/Vol] Alkaline phosphatase [Enzymatic activity/volume] in Serum or Plasma 34-104 [facility] Appearance of UrineOrdered B y: Jesse Valdez on 09-17-2024 Appearance (U) Urine appearance Clear [facility] Aspartate aminotransferase [ Enzymatic activity/volume] in Serum or PlasmaOrdered By: Jesse Valdez on 09-17-2024 AST [Catalytic activity/Vol] 14 U/L Normal 13-39 [facility] Comment on above: Performed By: #### P T, CMP, HS TROP, PTT, CK, BNP, MG, TSH3, SCAN CBC ####[address] AST [Catalytic activity/Vol] Aspartate aminotransferase [Enzymatic activity/volume] in Serum or Plasma 13-39 [facility] Automated basophil %Ordered By: Jesse Valdez on 09-17-2024 Basophils/100 WBC (Bld) 0.3 % Normal . [facility] Comment on above: Performed By: #### P T, CMP, HS TROP, PTT, CK, BNP, MG, TSH3, SCAN CBC ####[address] Automated basophil countOrde red By: Jesse Valdez on 09-17-2024 Basophils (Bld) [#/Vol] 0.0 10*3/uL Normal 0.0-0.2 [facility] Comment on above: Performed By: #### P T, CMP, HS TROP, PTT, CK, BNP, MG, TSH3, SCAN CBC ####[address] Automated blood monocyte cou ntOrdered By: Jesse Valdez on 09-17-2024 Monocytes (Bld) [#/Vol] 0.6 10*3/uL Normal 0.0-0.8 [facility] Comment on above: Performed By: #### P T, CMP, HS TROP, PTT, CK, BNP, MG, TSH3, SCAN CBC ####[facility] [place] [address] [facility] Automated eosinophil %Ordere d By: Jesse Valdez on 09-17-2024 Eosinophils/100 WBC (Bld) 2.1 % Normal . [facility] Comment on above: Performed By: #### P T, CMP, HS TROP, PTT, CK, BNP, MG, TSH3, SCAN CBC ####[place] [id number] [facility] Automated eosinophil countOr dered By: Jesse Valdez on 09-17-2024 Eosinophils (Bld) [#/Vol] 0.3 10*3/uL Normal 0.0-0.45 [facility] Comment on above: Performed By: #### P T, CMP, HS TROP, PTT, CK, BNP, MG, TSH3, SCAN CBC ####[address] Automated monocyte %Ordered By: Jesse Valdez on 09-17-2024 Monocytes/100 WBC (Bld) 4.9 % Normal . [facility] Comment on above: Performed By: #### P T, CMP, HS TROP, PTT, CK, BNP, MG, TSH3, SCAN CBC ####[address] Automated neutrophil %Ordere d By: Jesse Valdez on 09-17-2024 Neutrophils/100 WBC (Bld) 87.9 % Normal . [facility] Comment on above: Performed By: #### P T, CMP, HS TROP, PTT, CK, BNP, MG, TSH3, SCAN CBC ####[place] [id number] [facility] BNP ser/plasOrdered By: Lul Valdez on 09-17-2024 Natriuretic peptide B (Bld) [Mass/Vol] 660.0 pg/mL High 5-100 [facility] Comment on above: Result Comment: PERF ORMED BY: [facility] [address] [place] [id number] PATHOLOGIST FACILITIES MECHANICAL DESIGN ENGINEER LUIS DEE M.D. Performed By: #### P T, CMP, HS TROP, PTT, CK, BNP, MG, TSH3, SCAN CBC ####[facility] [id number] [place] [id number] [place] Bacteria [Presence] in Urine by AutomatedOrdered By: Jesse Valdez on 09-17-2024 Bacteria Auto Ql (U) None seen [HPF] None Seen [facility] Bacteria Auto Ql (U) Bacteria [Presence] in Urine by Automated None Seen [facility] Bilirubin Test strip Ql (U)O rdered By: Jesse Valdez on 09-17-2024 Bilirubin Ql (U) Negative Negative [facility] Bilirubin Ql (U) Bilirubin.total [Presence] in Urine by Test strip Negative [facility] Bilirubin.total [Mass/volume ] in Serum or PlasmaOrdered By: Jesse Valdez on 09-17-2024 Bilirubin [Mass/Vol] 0.4 mg/dL Normal 0.3-1.0 [facility] Comment on above: Performed By: #### P T, CMP, HS TROP, PTT, CK, BNP, MG, TSH3, SCAN CBC ####[facility] [id number] [place] [address] [facility] Bilirubin [Mass/Vol] Bilirubin.total [Mass/volume] in Serum or Plasma 0.3-1.0 [facility] CT head/brain wo conon 09-17 CT head/brain wo con [facility] [place] [address] CT Scan Report Signed Patient: Hailee Trivedi MR#: [id number] 306 : 1940 Acct:[id number] Age/Sex: 84 / F ADM Date: 09/17/24 Loc: ER Room: Type: [facility] ER Attending Dr: Copies to: [...] Armando Huynh M.D.09/17/2024 10:40 PM Dictation Location: [place] [address] Transcribed By: AISHA 09/17/242239 Dictated By: Armando Huynh II, MD 09/17/242232 Signed By: 09/17/242239 Normal [facility] Calcium [Mass/volume] in Ser um or PlasmaOrdered By: Jesse Valdez on 09-17-2024 Calcium [Mass/Vol] 7.7 mg/dL Low 8.6-10.3 [facility] Comment on above: Performed By: #### P T, CMP, HS TROP, PTT, CK, BNP, MG, TSH3, SCAN CBC ####[facility] [id number] Capillary blood glucose leonor urement by glucometer (mass/volume)Ordered By: Jesse Valdez on 09-17-2024 Glucose [Mass/Vol] 138 mg/dL Normal [facility] Comment on above: Random Glucose Refer ence Range is dependent on time and content of last meal. Glucose of more than 200 mg/dL in a nonstressed, ambulatory subject supports the diagnosis of Diabetes Mellitus. Result Comment: [facility] Glucose Reference Range is dependent on time and content of last meal. Glucose of more than 200 mg/dL in a nonstressed, ambulatory subject supports the diagnosis of Diabetes Mellitus. Performed By: #### B MP #### [address] Carbon dioxide, total [Moles /volume] in Serum or PlasmaOrdered By: Jesse Valdez on 09-17-2024 CO2 [Moles/Vol] 17.5 mmol/L Low 21.0-31.0 [facility] Comment on above: Performed By: #### P T, CMP, HS TROP, PTT, CK, BNP, MG, TSH3, SCAN CBC ####[address] Chloride [Moles/volume] in S amanda or PlasmaOrdered By: Jesse Valdez on 09-17-2024 Chloride [Moles/Vol] 112 mmol/L High 98-107 [facility] Comment on above: Performed By: #### P T, CMP, HS TROP, PTT, CK, BNP, MG, TSH3, SCAN CBC ####[address] Color Auto (U)Ordered By: Abiodun Valdez on 09-17-2024 Color (U) Color of Urine by Auto Yellow [facility] Color of Urine by AutoOrdere d By: Jesse Valdez on 09-17-2024 Color (U) Yellow Normal Yellow [facility] Comment on above: Order Comment: PATHO LOGY GI SPECIMEN Performed By: #### P ATH TO [facility] #### [address] Comprehensive Metabolic Pane natalia 09-17-2024 Albumin [Mass/Vol] 2.7 g/dL Low 3.5-5.7 [facility] Comment on above: Performed By: #### P T, CMP, HS TROP, PTT, CK, BNP, MG, TSH3, SCAN CBC ####[place] [address] [place] Creatinine Clr Calc Pharmacy 18.35 Normal [facility] Comment on above: Performed By: #### P T, CMP, HS TROP, PTT, CK, BNP, MG, TSH3, SCAN CBC ####[facility] GFR/1.73 sq M.predicted MDRD (S/P/Bld) [Vol rate/Area] 17.388 mL/min/{1.73_m2} Normal [facility] Comment on above: Performed By: #### P T, CMP, HS TROP, PTT, CK, BNP, MG, TSH3, SCAN CBC ####[place] [address] [address] Creatine kinase [Enzymatic a ctivity/volume] in Serum or PlasmaOrdered By: Jesse Valdez on 09-17-2024 CK [Catalytic activity/Vol] 25 U/L Low 30-223 [facility] Comment on above: Performed By: #### P T, CMP, HS TROP, PTT, CK, BNP, MG, TSH3, SCAN CBC ####[place] [address] [address] CK [Catalytic activity/Vol] Creatine kinase [Enzymatic activity/volume] in Serum or Plasma Low 30-223 [facility] Creatinine [Mass/volume] in Serum or PlasmaOrdered By: Jesse Valdez on 09-17-2024 Creatinine [Mass/Vol] 2.66 mg/dL High 0.60-1.20 [facility] Comment on above: Performed By: #### P T, CMP, HS TROP, PTT, CK, BNP, MG, TSH3, SCAN CBC ####[place] [address] [place] [id number] [place] Dipstick and Microscopicon 1 11-17-2023 Bacteria,Urine None Seen Normal None Seen [facility] Comment on above: Order Comment: PATHO LOGY GI SPECIMEN Performed By: #### P ATH TO [facility] #### [facility] [address] [place] [address] [place] Bilirubin,Urine Negative Normal Negative [facility] Comment on above: Order Comment: PATHO LOGY GI SPECIMEN Performed By: #### P ATH TO [facility] #### [facility] [address] Glucose Ql (U) Normal Normal Normal [facility] Comment on above: Order Comment: PATHO LOGY GI SPECIMEN Performed By: #### P ATH TO [facility] #### [facility] [address] Hyaline Casts,Urine None Normal 0-8 [facility] Comment on above: Order Comment: PATHO LOGY GI SPECIMEN Performed By: #### P ATH TO [facility] #### [address] Mucus,Urine Rare Normal [facility] Comment on above: Order Comment: PATHO LOGY GI SPECIMEN Result Comment: PERF ORMED BY: [place] [address] PATHOLOGIST FACILITIES MECHANICAL DESIGN ENGINEER LUIS DEE M.D. Performed By: #### P ATH TO [facility] #### [address] Nitrite,Urine Negative Normal Negative [facility] Comment on above: Order Comment: PATHO LOGY GI SPECIMEN Performed By: #### P ATH TO [facility] #### [address] Occult Blood,Urine Negative Normal Negative [facility] Comment on above: Order Comment: PATHO LOGY GI SPECIMEN Result Comment: PERF ORMED BY: [place] [address] PATHOLOGIST FACILITIES MECHANICAL DESIGN ENGINEER LUIS DEE M.D. Performed By: #### P ATH TO [facility] #### [place] [address] [place] RBC,Urine 1-2 Normal 0-4 [facility] Comment on above: Order Comment: PATHO LOGY GI SPECIMEN Performed By: #### P ATH TO [facility] #### [address] Specificy [place],Urine 1.023 Normal 1.00 1-1.03 0 [facility] Comment on above: Order Comment: PATHO LOGY GI SPECIMEN Performed By: #### P ATH TO [facility] #### [facility] [address] Squamous Epithelial Cell,Urine 1-2 Normal 0-2 [facility] Comment on above: Order Comment: PATHO LOGY GI SPECIMEN Performed By: #### P ATH TO [facility] #### [facility] [address] Urobilinogen,Urine Normal Normal Normal [facility] Comment on above: Order Comment: PATHO LOGY GI SPECIMEN Performed By: #### P ATH TO [facility] #### [address] WBC [place], Urine Occasional High None Seen [facility] Comment on above: Order Comment: PATHO LOGY GI SPECIMEN Performed By: #### P ATH TO [facility] #### [address] WBC,Urine 3-4 Normal 0-4 [facility] Comment on above: Order Comment: PATHO LOGY GI SPECIMEN Performed By: #### P ATH TO [facility] #### [address] ECG 12 lead ECGon 09-17-2024 ECG 12 lead ECG [facility] Main [place] [address] [place] [address] Electrocardiograph Report Signed Patient: Hailee Trivedi MR#: [id number] 306 : 1940 Acct:[id number] Age/Sex: 84 / F ADM Date: 09/18/24 Loc: Room: [address] [place] [address] Type: ADM INOo Attending Dr: Trent Patterson [...] ventricular response Confirmed by Jesse VALDEZ DO ([id number]) on 09/18/2024 11:57:16 PM Referred By: Electronically Signed By: Jesse VALDEZ DO Transcribed By: MUS Signed By Jesse Valdez DO 1 11/18/23 3337 Normal [facility] ECG 12 lead ECG [facility] [place] [address] Electrocardiograph Report Signed Patient: Hailee Trivedi MR#: [id number] 306 : 1940 Acct:[id number] Age/Sex: 84 / F ADM Date: 09/17/24 Loc: ER Room: Type: [facility] ER Attending Dr: Ordering Provider: [...] Atrial fibrillation Confirmed by Jesse VALDEZ DO ([id number]) on 09/18/2024 12:49:30 AM Referred By: Electronically Signed By: Jesse VALDEZ DO Transcribed By: ALLA Signed By Jesse Valdez DO 1 11/18/23 0049 Normal [facility] [facility] Epithelial cells.squamous [# /area] in Urine sediment by Automated countOrdered By: Jesse Valdez on 09-17-2024 Epithelial cells.squamous Auto (Urine sed) [#/Area] 1-2 [HPF] 0-2 [facility] Epithelial cells.squamous Auto (Urine sed) [#/Area] Epithelial cells.squamous [#/area] in Urine sediment by Automated count 0-2 [facility] Erythrocyte distribution wid th [Ratio] by Automated countOrdered By: Jesse Valdez on 09-17-2024 Erythrocyte distribution width (RBC) [Ratio] 14.3 % Normal 11.9-15.3 [facility] Comment on above: Performed By: #### P T, CMP, HS TROP, PTT, CK, BNP, MG, TSH3, SCAN CBC ####[facility] [place] [address] [facility] Erythrocyte morphology findi ng [Identifier] in BloodOrdered By: Jesse Valdez on 09-17-2024 RBC morphology finding Nom (Bld) RBC morphology Normal [facility] Erythrocytes [#/area] in Uri ne sediment by Automated countOrdered By: Jesse Valdez on 09-17-2024 RBC Auto (Urine sed) [#/Area] 1-2 [HPF] 0-4 [facility] RBC Auto (Urine sed) [#/Area] Erythrocytes [#/area] in Urine sediment by Automated count 0-4 [facility] Erythrocytes [#/volume] in B lood by Automated countOrdered By: Jesse Valdez on 09-17-2024 RBC (Bld) [#/Vol] 3.77 10*6/uL Normal 3.60-5.00 [facility] Comment on above: Performed By: #### P T, CMP, HS TROP, PTT, CK, BNP, MG, TSH3, SCAN CBC ####[facility] [place] [address] [facility] Globulin Calc (S) [Mass/Vol] Ordered By: Jesse Valdez on 09-17-2024 Globulin (S) [Mass/Vol] Serum globulin measurement by calculation (mass/volume) [facility] Glucose Poct Glucometerson 1 11-17-2023 Commemt1 Glu2: Cleaned Meter Normal [facility] Comment on above: Result Comment: PERF ORMED BY: [place] [address] PATHOLOGIST FACILITIES MECHANICAL DESIGN ENGINEER LUIS DEE M.D. Performed By: #### B MP #### [address] Glucose [Mass/volume] in Ser um or PlasmaOrdered By: Jesse aVldez on 09-17-2024 Glucose [Mass/Vol] 141 mg/dL High 70-100 [facility] Comment on above: ADA recommended refe rence rangeRandom Glucose Reference Range is dependent on time and content of last meal. Glucose of more than 200 mg/dL in a nonstressed, ambulatory subject supports the diagnosis of Diabetes Mellitus. Result Comment: [place] Glucose Reference Range is dependent on time and content of last meal. Glucose of more than 200 mg/dL in a nonstressed, ambulatory subject supports the diagnosis of Diabetes Mellitus. ADA recommended reference range Performed By: #### P T, CMP, HS TROP, PTT, CK, BNP, MG, TSH3, SCAN CBC ####[place] [address] Glucose [Mass/volume] in Uri ne by Test stripOrdered By: Jesse Valdez on 09-17-2024 Glucose Test strip (U) [Mass/Vol] Normal mg/dL Normal [facility] Glucose Test strip (U) [Mass/Vol] Glucose [Mass/volume] in Urine by Test strip Normal [facility] Hematocrit [Volume Fraction] of Blood by Automated countOrdered By: Jesse Valdez on 09-17-2024 Hematocrit (Bld) [Volume fraction] 36.0 % Normal 34.0-46.4 [facility] Comment on above: Performed By: #### P T, CMP, HS TROP, PTT, CK, BNP, MG, TSH3, SCAN CBC ####[place] [address] Hemoglobin Test strip Ql (U) Ordered By: Jesse Valdez on 09-17-2024 Hemoglobin Ql (U) Negative Negative [facility] Hemoglobin Ql (U) Hemoglobin [Presence ] in Urine by Test strip Negative [facility] Hemoglobin [Mass/volume] in BloodOrdered By: Jesse Valdez on 09-17-2024 Hemoglobin (Bld) [Mass/Vol] 12.0 g/dL Normal 11.8-15.4 [facility] Comment on above: Performed By: #### P T, CMP, HS TROP, PTT, CK, BNP, MG, TSH3, SCAN CBC ####[place] [address] Hyaline casts [#/area] in Ur ine sediment by Automated countOrdered By: Jesse Valdez on 09-17-2024 Hyaline casts Auto (Urine sed) [#/Area] None [LPF] 0-8 [facility] Hyaline casts Auto (Urine sed) [#/Area] Hyaline casts [#/area] in Urine sediment by Automated count 0-8 [facility] INR in Platelet poor plasma by Coagulation assayOrdered By: Jesse Valdez on 09-17-2024 INR Coag (PPP) [Relative time] 1.5 {INR} Normal [facility] Comment on above: INR Therapeutic [...] valves: 3 - 4.5 Performed By: #### P T, CMP, HS TROP, PTT, CK, BNP, MG, TSH3, SCAN CBC ####[facility] [address] [place] [id number] [facility] INR Coag (PPP) [Relative time] INR in Platelet poor plasma by Coagulation assay [facility] Comment on above: INR Therapeutic [...] with mechanical heart valves: 3 - 4.5 Ketones Test strip Ql (U)Ord ered By: Jesse Valdez on 09-17-2024 Ketones Ql (U) Ketones [Presence] i n Urine by Test strip Negative [facility] Ketones [Presence] in Urine by Test stripOrdered By: Jesse Valdez on 09-17-2024 Ketones Ql (U) Negative Normal Negative [facility] Comment on above: Order Comment: PATHO LOGY GI SPECIMEN Performed By: #### P ATH TO [facility] #### [facility] [address] [place] [address] [place] Lactate [Moles/volume] in Se rum or PlasmaOrdered By: Jesse Valdez on 09-17-2024 Lactate [Moles/Vol] 0.9 mmol/L Normal 0.5-2.2 [facility] Comment on above: Result Comment: PERF ORMED BY: [place] [address] PATHOLOGIST FACILITIES MECHANICAL DESIGN ENGINEER LUIS DEE M.D. Performed By: #### B MP #### [address] Lactate [Moles/Vol] Lactate [Moles/volum e] in Serum or Plasma 0.5-2.2 [facility] Leukocyte clumps [Presence] in Urine by AutomatedOrdered By: Jesse Valdez on 09-17-2024 Leukocyte clumps Auto Ql (U) Occasional [LPF] High None Seen [facility] Leukocyte clumps Auto Ql (U) Leukocyte clumps [Presence] in Urine by Automated High None Seen [facility] Leukocyte esterase [Presence ] in Urine by Test stripOrdered By: Jesse Valdez on 09-17-2024 Leukocyte esterase Test strip Ql (U) Negative Normal Negative [facility] Comment on above: Order Comment: PATHO LOGY GI SPECIMEN Performed By: #### P ATH TO [facility] #### [facility] [address] [place] [address] Leukocyte esterase Test strip Ql (U) Leukocyte esterase [Presence] in Urine by Test strip Negative [facility] Leukocytes [#/area] in Urine sediment by Automated countOrdered By: Jesse Valdez on 09-17-2024 WBC Auto (Urine sed) [#/Area] 3-4 [HPF] 0-4 [facility] WBC Auto (Urine sed) [#/Area] Leukocytes [#/area] in Urine sediment by Automated count 0-4 [facility] Leukocytes [#/volume] correc dominick for nucleated erythrocytes in Blood by Automated counOrdered By: Jesse Valdez on 09-17-2024 WBC corrected for nucl RBC Auto (Bld) [#/Vol] 12.0 10*3/uL High 3.8-11.6 [facility] Leukocytes [#/volume] in Blo od by Automated countOrdered By: Jesse Valdez on 09-17-2024 WBC (Bld) [#/Vol] 12.0 10*3/uL High 3.8-11.6 [facility] Comment on above: Performed By: #### P T, CMP, HS TROP, PTT, CK, BNP, MG, TSH3, SCAN CBC ####[place] [id number] [facility] Lymphocytes [#/volume] in Bl ood by Automated countOrdered By: Jesse Valdez on 09-17-2024 Lymphocytes (Bld) [#/Vol] 0.6 10*3/uL Low 1.00-4.8 [facility] Comment on above: Performed By: #### P T, CMP, HS TROP, PTT, CK, BNP, MG, TSH3, SCAN CBC ####[place] [id number] [facility] Lymphocytes/100 leukocytes i n Blood by Automated countOrdered By: Jesse Valdez on 09-17-2024 Lymphocytes/100 WBC (Bld) 4.8 % Normal . [facility] Comment on above: Performed By: #### P T, CMP, HS TROP, PTT, CK, BNP, MG, TSH3, SCAN CBC ####[place] [id number] [facility] MCH [Entitic mass] by Automa dominikc countOrdered By: Jesse Valdez on 09-17-2024 MCH (RBC) [Entitic mass] 31.8 pg Normal 24.7-34.3 [facility] Comment on above: Performed By: #### P T, CMP, HS TROP, PTT, CK, BNP, MG, TSH3, SCAN CBC ####[place] [id number] [facility] MCHC Auto (RBC) [Mass/Vol]Or dered By: Jesse Valdez on 09-17-2024 MCHC (RBC) [Mass/Vol] 33.3 g/dL 32.0-35.0 [facility] MCV [Entitic volume] by Auto mated countOrdered By: Jesse Valdez on 09-17-2024 MCV (RBC) [Entitic vol] 95.5 fL Normal 80-100 [facility] Comment on above: Performed By: #### P T, CMP, HS TROP, PTT, CK, BNP, MG, TSH3, SCAN CBC ####[facility] [id number] Magnesium [Mass/volume] in S amanda or PlasmaOrdered By: Jesse Valdez on 09-17-2024 Magnesium [Mass/Vol] 1.6 mg/dL Low 1.9-2.7 [facility] Comment on above: Performed By: #### P T, CMP, HS TROP, PTT, CK, BNP, MG, TSH3, SCAN CBC ####[place] [address] Monocyte distribution width [Entitic volume] in Blood by AutomatedOrdered By: Jesse Valdez on 09-17-2024 Monocyte distribution width Auto (Bld) [Entitic vol] 29.77 % High 0.00-20.00 [facility] Comment on above: For adults in ED, MD W > 20.0 may be associated with a higher risk of sepsis during the first 12 hrs of hospital admission Monocyte distribution width Auto (Bld) [Entitic vol] Monocyte distribution width [Entitic volume] in Blood by Automated High 0.00-20.00 [facility] Comment on above: For adults in ED, MD W > 20.0 may be associated with a higher risk of sepsis during the first 12 hrs of hospital admission Mucus [Presence] in Urine by AutomatedOrdered By: Jesse Valdez on 09-17-2024 Mucus Auto Ql (U) Rare [LPF] [facility] Mucus Auto Ql (U) Mucus [Presence] in Urine by Automated [facility] Natriuretic peptide B [Mass/ Vol]Ordered By: Jesse Valdez on 09-17-2024 Natriuretic peptide B (Bld) [Mass/Vol] BNP ser/plas High 5-100 [facility] Neutrophils [#/volume] in Bl ood by Automated countOrdered By: Jesse Valdez on 09-17-2024 Neutrophils (Bld) [#/Vol] 10.6 10*3/uL High 1.8-7.7 [facility] Comment on above: Performed By: #### P T, CMP, HS TROP, PTT, CK, BNP, MG, TSH3, SCAN CBC ####[facility] [id number] [place] [id number] [facility] Nitrite Test strip Ql (U)Ord ered By: Jesse Valdez on 09-17-2024 Nitrite Ql (U) Negative Negative [facility] Nitrite Ql (U) Nitrite [Presence] i n Urine by Test strip Negative [facility] No Panel InformationOrdered By: Jesse Valdez on 09-17-2024 Blood Gas Critical Value See comment [facility] Comment on above: Critical Value rizvi d on: 09/17/2024 at 22:50 Blood Gas Sample Site Venous Fir [facility] FiO2 21 % [facility] Venous Blood Base Excess -8.6 mmol/L Low -3.0-3.0 [facility] Venous Blood Oxygen Saturation 76.2 % High 73.0-76.0 [facility] Venous Blood Partial Pressure CO2 30.5 mm[Hg] Low 38.0-50.0 [facility] Venous Blood pH 7.34 7.32-7.43 [facility] Estimated GFR (CKD-EPI) 17.388 mL/Min [facility] Creatinine Clearance (Chem 18.35 [facility] Bedside Glucose Comment Glu2: cleaned meter [facility] Nucleated erythrocytes [Pres ence] in Blood by Automated countOrdered By: Jesse Valdez on 09-17-2024 Nucleated RBC Auto Ql (Bld) 0.0 /100{WBC} 0-0.5 [facility] Partial Thromboplastin Timeo n 09-17-2024 aPTT Coag (Bld) [Time] 30.4 s Normal 25.1-36.5 [facility] Comment on above: Result Comment: A he matocrit value greater than 55% may lead to inaccurate results in coagulation testing. Patients having hematocrit values >55% require a special collection tube for coagulation studies. Please contact the laboratory at [phone] for redraw instructions. PERFORMED BY: [facility] [address] [place] [id number] PATHOLOGIST FACILITIES MECHANICAL DESIGN ENGINEER LUIS DEE M.D. Performed By: #### P T, CMP, HS TROP, PTT, CK, BNP, MG, TSH3, SCAN CBC ####[facility] [place] [id number] [facility] Platelet adequacy [Presence] in Blood by Light microscopyOrdered By: Jesse Valdez on 09-17-2024 Platelets LM Ql (Bld) Normal Normal [facility] Platelets LM Ql (Bld) Platelet adequacy [Presence] in Blood by Light microscopy Normal [facility] Platelet mean volume [Entiti c volume] in Blood by Automated countOrdered By: Jesse Valdez on 09-17-2024 Platelet mean volume (Bld) [Entitic vol] 10.3 fL Normal 6.3-10.7 [facility] Comment on above: Performed By: #### P T, CMP, HS TROP, PTT, CK, BNP, MG, TSH3, SCAN CBC ####[place] [address] [place] [id number] [facility] Platelet morphology finding [Identifier] in BloodOrdered By: Jesse Valdez on 09-17-2024 Platelet morphology finding Nom (Bld) Normal Normal [facility] Platelet morphology finding Nom (Bld) Platelet morphology finding [Identifier] in Blood Normal [facility] Platelets [#/volume] in Bloo d by Automated countOrdered By: Jesse Valdez on 09-17-2024 Platelets (Bld) [#/Vol] 143 10*3/uL Low 150-450 [facility] Comment on above: Performed By: #### P T, CMP, HS TROP, PTT, CK, BNP, MG, TSH3, SCAN CBC ####[place] [address] [place] [id number] [facility] Potassium [Moles/volume] in Serum or PlasmaOrdered By: Jesse Valdez on 09-17-2024 Potassium [Moles/Vol] 3.9 mmol/L Normal 3.5-5.1 [facility] Comment on above: Performed By: #### P T, CMP, HS TROP, PTT, CK, BNP, MG, TSH3, SCAN CBC ####[facility] [place] [id number] [facility] Protein Test strip (U) [Mass /Vol]Ordered By: Jesse Valdez on 09-17-2024 Protein (U) [Mass/Vol] Protein [Mass/vol ume] in Urine by Test strip High Negative [facility] Protein [Mass/volume] in Ser um or PlasmaOrdered By: Jesse Valdez on 09-17-2024 Protein [Mass/Vol] 5.1 g/dL Low 6.4-8.9 [facility] Comment on above: Performed By: #### P T, CMP, HS TROP, PTT, CK, BNP, MG, TSH3, SCAN CBC ####[facility] [place] [id number] [facility] Protein [Mass/Vol] Protein [Mass/volume ] in Serum or Plasma Low 6.4-8.9 [facility] Protein [Mass/volume] in Uri ne by Test stripOrdered By: Jesse Valdez on 09-17-2024 Protein (U) [Mass/Vol] 50 mg/dL High Negative [facility] Comment on above: Order Comment: PATHO LOGY GI SPECIMEN Performed By: #### P ATH TO [facility] #### [facility] [address] [place], [place] [id number] [facility] Prothrombin time (PT)Ordered By: Jesse Valdez on 09-17-2024 PT Coag (PPP) [Time] 17.3 s High 9.0-12.9 [facility] Comment on above: A hematocrit value g reater than 55% may lead to inaccurate results in coagulation testing. Patients having hematocrit values >55% require a special collection tube for coagulation studies. Please contact the laboratory at [phone] for redraw instructions. Result Comment: A he matocrit value greater than 55% may lead to inaccurate results in coagulation testing. Patients having hematocrit values >55% require a special collection tube for coagulation studies. Please contact the laboratory at [phone] for redraw instructions. Performed By: #### P T, CMP, HS TROP, PTT, CK, BNP, MG, TSH3, SCAN CBC ####[address] PT Coag (PPP) [Time] Prothrombin time (PT) High 9.0- 12.9 [facility] Comment on above: A hematocrit value g reater than 55% may lead to inaccurate results in coagulation testing. Patients having hematocrit values >55% require a special collection tube for coagulation studies. Please contact the laboratory at [phone] for redraw instructions. RBC morphologyOrdered By: Abiodun Valdez on 09-17-2024 RBC morphology finding Nom (Bld) Normal Normal Normal [facility] Comment on above: Performed By: #### P T, CMP, HS TROP, PTT, CK, BNP, MG, TSH3, SCAN CBC ####[address] Scan and CBCon 09-17-2024 Mean Corpuscular HGB Conc 33.3 g/dL Normal 32.0-35.0 [facility] Comment on above: Performed By: #### P T, CMP, HS TROP, PTT, CK, BNP, MG, TSH3, SCAN CBC ####[address] Monocytes/100 WBC (Bld) 29.77 % High 0.00-20.00 [facility] Comment on above: Result Comment: For adults in ED, MDW > 20.0 may be associated with a higher risk of sepsis during the first 12 hrs of hospital admission Performed By: #### P T, CMP, HS TROP, PTT, CK, BNP, MG, TSH3, SCAN CBC ####[place] [id number] [facility] NRBC% 0.0 /100{WBC} Normal 0-0.5 [facility] Comment on above: Performed By: #### P T, CMP, HS TROP, PTT, CK, BNP, MG, TSH3, SCAN CBC ####[place] [id number] [facility] Platelet Estimate Normal Normal Normal [facility] Comment on above: Performed By: #### P T, CMP, HS TROP, PTT, CK, BNP, MG, TSH3, SCAN CBC ####[place] [id number] [facility] Platelet Morphology Normal Normal Normal [facility] Comment on above: Result Comment: PERF ORMED BY: [facility] [address] [place] [address] PATHOLOGIST FACILITIES MECHANICAL DESIGN ENGINEER LUIS DEE M.D. Performed By: #### P T, CMP, HS TROP, PTT, CK, BNP, MG, TSH3, SCAN CBC ####[place] [id number] [facility] Serum globulin measurement b y calculation (mass/volume)Ordered By: Jesse Valdez on 09-17-2024 Globulin (S) [Mass/Vol] 2.4 g/dL Normal [facility] Comment on above: Performed By: #### P T, CMP, HS TROP, PTT, CK, BNP, MG, TSH3, SCAN CBC ####[place] [id number] [facility] Serum or plasma albumin/glob ulin mass ratioOrdered By: Jesse Valdez on 09-17-2024 Albumin/Globulin [Mass ratio] 1.1 {ratio} Normal [facility] Comment on above: Performed By: #### P T, CMP, HS TROP, PTT, CK, BNP, MG, TSH3, SCAN CBC ####[place] [id number] [facility] Albumin/Globulin [Mass ratio] Serum or plasma albumin/globulin mass ratio [facility] Serum or plasma anion gap de terminationOrdered By: Jesse Valdez on 09-17-2024 Anion gap [Moles/Vol] 10.4 mmol/L Normal 6.0-15.0 [facility] Comment on above: Performed By: #### P T, CMP, HS TROP, PTT, CK, BNP, MG, TSH3, SCAN CBC ####[place] [id number] [facility] Sodium [Moles/volume] in Ser um or PlasmaOrdered By: Jesse Valdez on 09-17-2024 Sodium [Moles/Vol] 136 mmol/L Normal 136-145 [facility] Comment on above: Performed By: #### P T, CMP, HS TROP, PTT, CK, BNP, MG, TSH3, SCAN CBC ####[place] [id number] [facility] Specific gravity Test strip (U) [Rel density]Ordered By: Jesse Valdez on 09-17-2024 Specific gravity (U) [Rel density] 1.023 1.001-1.03 0 [facility] Specific gravity (U) [Rel density] Specific gravity of Urine by Test strip 1.001-1.03 0 [facility] Thyrotropin [Units/volume] i n Serum or PlasmaOrdered By: Jesse Valdez on 09-17-2024 TSH Qn 3.69 m[IU]/L Normal 0.45-5.33 [facility] Comment on above: Result Comment: PERF ORMED BY: [facility] [address] [place] [address] PATHOLOGIST FACILITIES MECHANICAL DESIGN ENGINEER LUIS DEE M.D. Performed By: #### P T, CMP, HS TROP, PTT, CK, BNP, MG, TSH3, SCAN CBC ####[place] [id number] [facility] TSH Qn Thyrotropin [Units/volume] in Serum or Plasma 0.45-5.33 [facility] Troponin I High Sensitivityo n 09-17-2024 Troponin I High Sensitivity 9.3 pg/mL Normal 0.0-15.0 [facility] Comment on above: Result Comment: PERF ORMED BY: [facility] [address] [place] [address] PATHOLOGIST FACILITIES MECHANICAL DESIGN ENGINEER LUIS DEE M.D. Performed By: #### P T, CMP, HS TROP, PTT, CK, BNP, MG, TSH3, SCAN CBC ####[place] [id number] [facility] Troponin I.cardiac [Mass/vol ume] in Serum or Plasma by Detection limit <= 0.01 ng/Ordered By: Jesse Valdez on 09-17-2024 Troponin I.cardiac DL <= 0.01 ng/mL [Mass/Vol] 9.3 pg/mL 0.0-15.0 [facility] URINE CULTURE, ROUTINEon Bacteria identified Cx Nom (U) Urine Culture, Routine [facility] Bacteria identified Cx Nom (U) Mixed urogenital etienne [facility] Bacteria identified Cx Nom (U) Less than 10,000 colonies/mL [facility] Bacteria identified Cx Nom (U) Performed at: [facility] Bacteria identified Cx Nom (U) [address] [place], [place] [id number] [facility] Bacteria identified Cx Nom (U) Car Unloader: Elpidio Delgado PhD, Phone: [phone] [facility] Urea nitrogen [Mass/volume] in Serum or PlasmaOrdered By: Jesse Valdez on 09-17-2024 Urea nitrogen [Mass/Vol] 41 mg/dL High 7-25 [facility] Comment on above: Performed By: #### P T, CMP, HS TROP, PTT, CK, BNP, MG, TSH3, SCAN CBC ####[facility] [id number] Urine appearanceOrdered By: Jesse Valdez on 09-17-2024 Appearance (U) Clear Normal Clear [facility] Comment on above: Order Comment: PATHO LOGY GI SPECIMEN Performed By: #### P ATH TO [facility] #### [facility] [address] Urobilinogen Test strip (U) [Mass/Vol]Ordered By: Jesse Valdez on 09-17-2024 Urobilinogen (U) [Mass/Vol] Normal mg/dL Normal [facility] Urobilinogen (U) [Mass/Vol] Urobilinogen [Mass/volume] in Urine by Test strip Normal [facility] Venous Blood GasOrdered By: Jesse Valdez on 09-17-2024 CO2 [Moles/Vol] 16.9 mmol/L Low 24.0-29.0 [facility] Comment on above: Performed By: #### P ATH TO [facility] #### [address] HCO3 (Bld) [Moles/Vol] 15.9 mmol/L Low 23.0-29.0 [facility] Comment on above: Performed By: #### P ATH TO [facility] #### [address] Venous Blood Gason Respiratory Critical Normal [facility] Comment on above: Result Comment: Crit ical Value called on: 09/17/2024 at 22:50 PERFORMED BY: [place] [address] PATHOLOGIST FACILITIES MECHANICAL DESIGN ENGINEER LUIS DEE M.D. Performed By: #### P ATH TO [facility] #### [address] VBG Base Excess -8.6 mmol/L Low -3.0-3.0 [facility] Comment on above: Performed By: #### P ATH TO [facility] #### [address] VBG Draw Site Venous Normal [facility] Comment on above: Performed By: #### P ATH TO [facility] #### [address] VBG Frac Inspired O2 21 % Normal [facility] Comment on above: Performed By: #### P ATH TO [facility] #### [address] VBG Oxygen Saturation 76.2 % High 73.0-76.0 [facility] Comment on above: Performed By: #### P ATH TO [facility] #### [address] VBG PCO2 30.5 mm[Hg] Low 38.0-50.0 [facility] Comment on above: Performed By: #### P ATH TO [facility] #### [address] VBG PH Venous PH 7.34 Normal 7.32-7.43 [facility] Comment on above: Performed By: #### P ATH TO [facility] #### [place] [id number] [facility] XR chest 2V*on 09-17-2024 XR chest 2V* [facility] [address] [place] [address] [place] [id number] XRay Report Signed Patient: Hailee Trivedi MR#: [id number] : [id number] Acct:[id number] Age/Sex: 84 / F ADM Date: 09/17/24 Loc: ER Room: Type: [facility] ER Attending Dr: Copies to: Jesse Valdez DO Ordering Provider: Jesse Valdez DO Date of Service: 09/17/24 XR/XR chest 2V*: Weakness XR chest 2V* 09/17/2024 8:59 PM SIGNS AND SYMPTOMS: Increasing weakness PROTOCOL: Frontal and lateral radiograph of the chest COMPARISON: 01/08/2020 FINDINGS: The trachea is midline. There is a right-sided [id number] with the tip at the cavoatrial junction. The heart and mediastinal structures are within normal limits. The lung parenchyma is clear. The bony thorax is intact. Degenerative changes are noted in the shoulders. XR/XR chest 2V* IMPRESSION: No acute cardiopulmonary pathology. Chronic findings are noted as above. Impression dictated by: Armando Huynh M.D.09/17/2024 10:43 PM Dictation Location: [place] [address] Transcribed By: [facility] 09/17/242242 Dictated By: Armando Huynh II, MD 09/17/242239 Signed By: 09/17/242242 Normal [facility] aPTT in Platelet poor plasma by Coagulation assayOrdered By: Jesse Valdez on 09-17-2024 aPTT Coag (PPP) [Time] Activated partial thromboplastin time (aPTT) in platelet poor plasma by coagulation a 25.1-36.5 [facility] Comment on above: A hematocrit value g reater than 55% may lead to inaccurate results in coagulation testing. Patients having hematocrit values >55% require a special collection tube for coagulation studies. Please contact the laboratory at [phone] for redraw instructions. pH Test strip (U)Ordered By: Jesse Valdez on 09-17-2024 pH (U) pH of Urine by Test strip 5.0-9.0 [facility] pH of Urine by Test stripOrd ered By: Jesse Valdez on 09-17-2024 pH (U) 5.5 [pH] Normal 5.0-9.0 [facility] Comment on above: Order Comment: PATHO LOGY GI SPECIMEN Performed By: #### P ATH TO [facility] #### [address] Basophils Auto (Bld) [#/Vol] on 09-14-2024 Basophils (Bld) [#/Vol] 0.0 10 3/uL 0.0-0.1 [facility] Basophils (Bld) [#/Vol] Automated basophil count 0.0-0.1 [facility] Basophils/100 WBC Auto (Bld) on 09-14-2024 Basophils/100 WBC (Bld) 0.1 % Low 0.2-2.0 [facility] Basophils/100 WBC (Bld) Automated basophil % Low 0. 2-2.0 [facility] Eosinophils/100 WBC Auto (Bl d)on 09-14-2024 Eosinophils/100 WBC (Bld) 0.5 % Low 0.9-7.0 [facility] Eosinophils/100 WBC (Bld) Automated eosinophil % Low 0.9-7.0 [facility] Erythrocyte distribution wid th Auto (RBC) [Ratio]on 09-14-2024 Erythrocyte distribution width (RBC) [Ratio] 12.8 % 11.0-15.0 [facility] Erythrocyte distribution width (RBC) [Ratio] Erythrocyte distribution width [Ratio] by Automated count 11.0-15.0 [facility] Estimated glomerular filtrat ion rate (GFR) non- Americanon 09-14-2024 GFR/1.73 sq M.predicted among non-blacks MDRD (S/P/Bld) [Vol rate/Area] 16 mL/min/{1.73_m2} Low >=60 mL/min/1.7 3m 2 [facility] GFR/1.73 sq M.predicted among non-blacks MDRD (S/P/Bld) [Vol rate/Area] Estimated glomerular filtration rate (GFR) non- Low >=60 mL/min/1.7 3m 2 [facility] Globulin Calc (S) [Mass/Vol] on 09-14-2024 Globulin (S) [Mass/Vol] 3.3 g/dL [facility] Globulin (S) [Mass/Vol] Serum globulin measurement by calculation (mass/volume) [facility] Hematocrit Auto (Bld) [Volum e fraction]on 09-14-2024 Hematocrit (Bld) [Volume fraction] 37.5 % 36.0-48.0 [facility] Hematocrit (Bld) [Volume fraction] Hematocrit [Volume Fraction] of Blood by Automated count 36.0-48.0 [facility] Hemoglobin [Mass/volume] in Bloodon 09-14-2024 Hemoglobin (Bld) [Mass/Vol] 12.7 g/dL 12.0-16.0 [facility] Hemoglobin (Bld) [Mass/Vol] Hemoglobin [Mass/volume] in Blood 12.0-16.0 [facility] Laboratory - Chemistry and C hemistry - challengeon 09-14-2024 Bilirubin Ql (U) Negative NEGATIVE [facility] Glucose (U) [Mass/Vol] Negative NEGATIVE [facility] Ketones Ql (U) Negative NEGATIVE [facility] pH (U) 6.0 [pH] 5.0-9.0 [facility] Specific gravity (U) [Rel density] 1.020 1.005-1.02 5 [facility] Urobilinogen Qn (U) 0.2 {Marley'U}/dL 0.2-1.0 [facility] Albumin [Mass/Vol] 2.6 g/dL Low 3.4-5.0 [facility] ALP [Catalytic activity/Vol] 84 U/L 46-116 [facility] ALT [Catalytic activity/Vol] 32 U/L 14-59 [facility] AST [Catalytic activity/Vol] 19 U/L 15-37 [facility] Bilirubin [Mass/Vol] 0.3 mg/dL 0.2-1.0 [facility] Calcium [Mass/Vol] 8.2 mg/dL Low 8.5-10.1 [facility] Chloride [Moles/Vol] 111 mmol/L High 98-107 [facility] CO2 [Moles/Vol] 18.4 mmol/L Low 21.0-32.0 [facility] Creatinine [Mass/Vol] 2.86 mg/dL High 0.55-1.02 [facility] GFR/1.73 sq M.predicted MDRD (S/P/Bld) [Vol rate/Area] 19 mL/min/{1.73_m2} Low >=60 mL/min/1.7 3m 2 [facility] Glucose [Mass/Vol] 218 mg/dL High 74-106 [facility] Lipase [Catalytic activity/Vol] 78.0 U/L High 16.0-77.0 [facility] Potassium [Moles/Vol] 3.8 mmol/L 3.5-5.1 [facility] Protein [Mass/Vol] 5.9 g/dL Low 6.4-8.2 [facility] Sodium [Moles/Vol] 142 mmol/L 136-145 [facility] TSH Qn 1.683 m[IU]/L 0.358-3.74 0 [facility] Urea nitrogen [Mass/Vol] 47.0 mg/dL High 7.0-18.0 [facility] Urea nitrogen/Creatinine [Mass ratio] 16.4 mg/mg [facility] Laboratory - Hematology and Cell countson 09-14-2024 Immature granulocytes/100 WBC (Bld) 1.0 % High 0.0-0.5 [facility] Laboratory - Specimen inform ationon 09-14-2024 Appearance (U) CLEAR CLEAR [facility] Color (U) LT. YELLOW YELLOW [facility] Laboratory - Urinalysison Leukocyte esterase Test strip Ql (U) MODERATE Abnormal NEGATIVE [facility] Mucus Ql (Urine sed) NONE SEEN NONE SEEN [facility] Nitrite Ql (U) Negative NEGATIVE [facility] Protein Ql (U) TRACE mg/dL NEG/TRACE [facility] Leukocytes [#/volume] correc dominick for nucleated erythrocytes in Blood by Automated counon 09-14-2024 WBC corrected for nucl RBC Auto (Bld) [#/Vol] 15.6 10 3/uL High 4.0-11.0 [facility] WBC corrected for nucl RBC Auto (Bld) [#/Vol] Leukocytes [#/volume] corrected for nucleated erythrocytes in Blood by Automated coun High 4.0-11.0 [facility] Lymphocytes Auto (Bld) [#/Vo l]on 09-14-2024 Lymphocytes (Bld) [#/Vol] 3.0 10 3/uL 1.2-3.8 [facility] Lymphocytes (Bld) [#/Vol] Lymphocytes [#/volume] in Blood by Automated count 1.2-3.8 [facility] Lymphocytes/100 WBC Auto (Bl d)on 09-14-2024 Lymphocytes/100 WBC (Bld) 19.0 % Low 20.5-60.0 [facility] Lymphocytes/100 WBC (Bld) Lymphocytes/100 leukocytes in Blood by Automated count Low 20.5-60.0 [facility] MCH Auto (RBC) [Entitic mass ]on 09-14-2024 MCH (RBC) [Entitic mass] 32.2 pg 26.7-34.0 [facility] MCH (RBC) [Entitic mass] MCH [Entitic ma ss] by Automated count 26.7-34.0 [facility] MCHC Auto (RBC) [Mass/Vol]on 09-14-2024 MCHC (RBC) [Mass/Vol] 33.9 g/dL 29.9-35.2 [facility] MCHC (RBC) [Mass/Vol] MCHC [Mass/volume] by Automated count 29.9-35.2 [facility] MCV Auto (RBC) [Entitic vol] on 09-14-2024 MCV (RBC) [Entitic vol] 94.9 fL 81.0-99.0 [facility] MCV (RBC) [Entitic vol] MCV [Entitic vol ume] by Automated count 81.0-99.0 [facility] Monocytes Auto (Bld) [#/Vol] on 09-14-2024 Monocytes (Bld) [#/Vol] 0.8 10 3/uL 0.3-0.8 [facility] Monocytes (Bld) [#/Vol] Automated blood monocyte count 0.3-0.8 [facility] Monocytes/100 WBC Auto (Bld) on 09-14-2024 Monocytes/100 WBC (Bld) 5.1 % 1.7-12.0 [facility] Monocytes/100 WBC (Bld) Automated monocyte % 1. 7-12.0 [facility] Neutrophils Auto (Bld) [#/Vo l]on 09-14-2024 Neutrophils (Bld) [#/Vol] 11.6 10 3/uL High 1.4-6.5 [facility] Neutrophils (Bld) [#/Vol] Neutrophils [#/volume] in Blood by Automated count High 1.4-6.5 [facility] Neutrophils/100 WBC Auto (Bl d)on 09-14-2024 Neutrophils/100 WBC (Bld) 74.3 % 43.0-75.0 [facility] Neutrophils/100 WBC (Bld) Automated neutrophil % 43.0-75.0 [facility] No Panel Informationon 09-14 Troponin I High Sensitivity 6.9 pg/mL 4.0-51.3 [facility] Comment on above: CUT-OFF POINTS [...] CLINICAL INFORMATION. Miscellaneous Test Comment See comment [facility] Comment on above: Specimen Source: UCC - Urine,Clean Catch - Urine CC - 200.100 Urine Bacteria TRACE #/HPF Abnormal NONE SEEN [facility] Urine Culture Reflexed YES [facility] Urine Culture Result 1 \R\ Urine Culture , Routine [facility] Urine Microscopic Review YES [facility] Urine Occult Blood TRACE-I NEGATIVE [facility] Urine Other Casts NONE SEEN #/LPF NONE SEEN [facility] Urine Other Crystals None Seen #/HPF None Seen [facility] Urine RBC 2-5 #/HPF Abnormal 0-2 [facility] Urine Squamous Epithelial Cells FEW #/LPF Abnormal NONE/RARE [facility] Urine WBC 5-10 #/HPF Abnormal NONE SEEN [facility] Eosinophils # (Auto) 0.1 10 3/uL 0.0-0.7 [facility] Immature Granulocyte # (Auto) 0.15 10 3/uL High 0.00-0.03 [facility] Platelet mean volume Auto (B ld) [Entitic vol]on 09-14-2024 Platelet mean volume (Bld) [Entitic vol] 11.3 fL 9.5-13.5 [facility] Platelet mean volume (Bld) [Entitic vol] Platelet mean volume [Entitic volume] in Blood by Automated count 9.5-13.5 [facility] Platelets Auto (Bld) [#/Vol] on 09-14-2024 Platelets (Bld) [#/Vol] 229 10 3/uL 150-450 [facility] Platelets (Bld) [#/Vol] Platelets [#/vol ume] in Blood by Automated count 150-450 [facility] RBC Auto (Bld) [#/Vol]on RBC (Bld) [#/Vol] 3.95 10 6/uL Low 4.20-5.40 [facility] RBC (Bld) [#/Vol] Erythrocytes [#/volu me] in Blood by Automated count Low 4.20-5.40 [facility] Serum or plasma albumin/glob ulin mass ratioon 09-14-2024 Albumin/Globulin [Mass ratio] 0.8 {ratio} [facility] Albumin/Globulin [Mass ratio] Serum or plasma albumin/globulin mass ratio [facility] Serum or plasma anion gap de terminationon 09-14-2024 Anion gap [Moles/Vol] 16.4 mmol/L [facility] Anion gap [Moles/Vol] Serum or plasma an ion gap determination [facility] Alanine aminotransferase [En zymatic activity/volume] in Serum or PlasmaOrdered By: Claire Choi on 08-01-2024 ALT [Catalytic activity/Vol] 10 U/L Normal [facility] Comment on above: Performed By: #### P ATH TO [facility] #### [facility] [address] ALT [Catalytic activity/Vol] Alanine aminotransferase [Enzymatic activity/volume] in Serum or Plasma [facility] Albumin [Mass/volume] in Ser um or PlasmaOrdered By: Claire Choi on 08-01-2024 Albumin [Mass/Vol] 3.5 g/dL Normal 2.9-4.4 [facility] Comment on above: Performed By: #### I FE SERUM, IMM GAME, KAPPA, SPE ####[facility] , Albumin [Mass/volume] in Ser um or Plasma by Bromocresol green (BCG) dye binding methoOrdered By: Claire Choi on 08-01-2024 Albumin BCG dye [Mass/Vol] 3.9 g/dL 3.5-5.7 [facility] Alkaline phosphatase [Enzyma tic activity/volume] in Serum or PlasmaOrdered By: Claire Choi on 08-01-2024 ALP [Catalytic activity/Vol] 99 U/L Normal [facility] Comment on above: Performed By: #### P ATH TO [facility] #### [facility] [address] [place] [address] ALP [Catalytic activity/Vol] Alkaline phosphatase [Enzymatic activity/volume] in Serum or Plasma [facility] Aspartate aminotransferase [ Enzymatic activity/volume] in Serum or PlasmaOrdered By: Claire Choi on 08-01-2024 AST [Catalytic activity/Vol] 14 U/L Normal [facility] Comment on above: Performed By: #### P ATH TO [facility] #### [facility] [address] [place] [address] AST [Catalytic activity/Vol] Aspartate aminotransferase [Enzymatic activity/volume] in Serum or Plasma [facility] Automated basophil %Ordered By: Claire Choi on 08-01-2024 Basophils/100 WBC (Bld) 0.4 % Normal . [facility] Comment on above: Performed By: #### P ATH TO [facility] #### [address] Automated basophil countOrde red By: Claire Choi on 08-01-2024 Basophils (Bld) [#/Vol] 0.0 10*3/uL Normal 0.0-0.2 [facility] Comment on above: Result Comment: PERF ORMED BY: [place] [address] PATHOLOGIST FACILITIES MECHANICAL DESIGN ENGINEER LUIS DEE M.D. Performed By: #### P ATH [facility] #### [address] Automated blood monocyte cou ntOrdered By: Claire Choi on 08-01-2024 Monocytes (Bld) [#/Vol] 0.7 10*3/uL Normal 0.0-0.8 [facility] Comment on above: Performed By: #### P ATH [facility] #### [address] Automated eosinophil %Ordere d By: Claire Choi on 08-01-2024 Eosinophils/100 WBC (Bld) 1.2 % Normal . [facility] Comment on above: Performed By: #### P ATH [facility] #### [address] Automated eosinophil countOr dered By: Claire Choi on 08-01-2024 Eosinophils (Bld) [#/Vol] 0.1 10*3/uL Normal 0.0-0.45 [facility] Comment on above: Performed By: #### P ATH TO [facility] #### [address] Automated monocyte %Ordered By: Claire Choi on 08-01-2024 Monocytes/100 WBC (Bld) 7.9 % Normal . [facility] Comment on above: Performed By: #### P ATH TO [facility] #### [facility] [address] Automated neutrophil %Ordere d By: Claire Choi on 08-01-2024 Neutrophils/100 WBC (Bld) 59.7 % Normal . [facility] Comment on above: Performed By: #### P ATH TO [facility] #### [facility] [address] Basophils Auto (Bld) [#/Vol] Ordered By: Claire Choi on 08-01-2024 Basophils (Bld) [#/Vol] Automated basophil count 0.0-0.2 [facility] Basophils/100 WBC Auto (Bld) Ordered By: Claire Choi on 08-01-2024 Basophils/100 WBC (Bld) Automated basophil % . [facility] Bilirubin.total [Mass/volume ] in Serum or PlasmaOrdered By: Claire Choi on 08-01-2024 Bilirubin [Mass/Vol] 0.6 mg/dL Normal 0.3-1.0 [facility] Comment on above: Performed By: #### P ATH TO [facility] #### [facility] [address] Bilirubin [Mass/Vol] Bilirubin.total [Mass/volume] in Serum or Plasma 0.3-1.0 [facility] CBC W Auto Differential pane l (Bld)on 08-01-2024 Basophils (Bld) [#/Vol] 0.0 10*3/uL 0.0 - 0.2 10*3/uL [facility] Basophils/100 WBC Manual cnt (Syn fld) 0.4 % . [facility] Eosinophils (Bld) [#/Vol] 0.1 10*3/uL 0.0 - 0.45 10*3/uL [facility] Eosinophils/100 WBC Manual cnt (Syn fld) 1.2 % . [facility] Erythrocyte distribution width (RBC) [Ratio] 13.7 % 11.9 - 15.3 % [facility] Hematocrit (Bld) [Volume fraction] 37.9 % 34.0 - 46.4 % [facility] Hemoglobin (Bld) [Mass/Vol] 12.7 g/dL 11.8 - 15.4 g/dL [facility] Lymphocytes (Bld) [#/Vol] 2.8 10*3/uL 1.00 - 4.8 10*3/uL [facility] Lymphocytes/100 WBC Manual cnt (Syn fld) 30.8 % . [facility] MCH (RBC) [Entitic mass] 32.5 pg 24. 7 - 34.3 pg [facility] MCHC (RBC) [Mass/Vol] 33.6 g/dL 32.0 - 35.0 g/dL [facility] MCV (RBC) [Entitic vol] 96.6 fL 80 - 100 fL [facility] Monocytes (Bld) [#/Vol] 0.7 10*3/uL 0.0 - 0.8 10*3/uL [facility] Monocytes+Macrophages/10 0 WBC Manual cnt (Syn fld) 7.9 % . [facility] Neutrophils (Bld) [#/Vol] 5.4 10*3/uL 1.8 - 7.7 10*3/uL [facility] Neutrophils/100 WBC Manual cnt (Syn fld) 59.7 % . [facility] NRBC 0.1 /100{WBC} 0 - 0.5 /100{WBC} [facility] Platelet mean volume (Bld) [Entitic vol] 9.8 fL 6.3 - 10.7 fL [facility] Platelets (Bld) [#/Vol] 209 10*3/uL 150 - 450 10*3/uL [facility] RBC LM.HPF (Urine sed) [#/Area] 3.93 /[HPF] 3.60 - 5.00 [facility] WBC (Bld) [#/Vol] 9.0 10*3/uL 3.8 - 11.6 10*3/uL [facility] WBC LM.HPF (Urine sed) [#/Area] 9.0 10*3/uL 3.8 - 11.6 10*3/uL [facility] Calcium [Mass/volume] in Ser um or PlasmaOrdered By: Claire Choi on 08-01-2024 Calcium [Mass/Vol] 8.6 mg/dL Normal 8.6-10.3 [facility] Comment on above: Performed By: #### P A[facility] #### [address] Carbon dioxide, total [Moles /volume] in Serum or PlasmaOrdered By: Clairecain Choi on 08-01-2024 CO2 [Moles/Vol] 22.2 mmol/L Normal 21.0-31.0 [facility] Comment on above: Performed By: #### P ATH TO [facility] #### [address] Chloride [Moles/volume] in S amanda or PlasmaOrdered By: Claire Choi on 08-01-2024 Chloride [Moles/Vol] 108 mmol/L High 98-107 [facility] Comment on above: Performed By: #### P ATH TO [facility] #### [address] Complete Blood Count Auto Di ffon 08-01-2024 Mean Corpuscular HGB Conc 33.6 g/dL Normal 32.0-35.0 [facility] Comment on above: Performed By: #### P ATH TO [facility] #### [address] NRBC% 0.1 /100{WBC} Normal 0-0.5 [facility] Comment on above: Performed By: #### P ATH TO [facility] #### [address] Comprehensive Metabolic Pane [place] 08-01-2024 Albumin [Mass/Vol] 3.9 g/dL Normal 3.5-5.7 [facility] Comment on above: Performed By: #### P ATH [facility] #### [address] Creatinine Clr Calc Pharmacy 16.51 Normal [facility] Comment on above: Result Comment: PERF ORMED BY: [place] [address] PATHOLOGIST FACILITIES MECHANICAL DESIGN ENGINEER LUIS DEE M.D. Performed By: #### P ATH [facility] #### [facility] [address] [place] [id number] [facility] GFR/1.73 sq M.predicted MDRD (S/P/Bld) [Vol rate/Area] 15.173 mL/min/{1.73_m2} Normal [facility] Comment on above: Performed By: #### P ATH TO [facility] #### [facility] [address] [place] [id number] [facility] Comprehensive metabolic pane [place] 08-01-2024 Albumin [Mass/Vol] 3.9 g/dL 3.5 - 5.7 g/dL [facility] Albumin/Globulin [Mass ratio] 1.3 {ratio} [facility] ALP [Catalytic activity/Vol] 99 U/L 34 - 104 U/L [facility] ALT [Catalytic activity/Vol] 10 U/L 7 - 52 U/L [facility] Anion gap [Moles/Vol] 12.7 mmol/L 6.0 - 15.0 NO [facility] AST [Catalytic activity/Vol] 14 U/L 13 - 39 U/L [facility] Bilirubin [Mass/Vol] 0.6 mg/dL 0.3 - 1 .0 mg/dL [facility] Calcium [Mass/Vol] 8.6 mg/dL 8.6 - 10. 3 mg/dL [facility] Chloride [Moles/Vol] 108 mmol/L High 98 - 10 7 mmol/L [facility] CO2 [Moles/Vol] 22.2 mmol/L 21.0 - 31.0 mmol/L [facility] Creatinine (U) [Mass/Vol] 2.98 mg/dL High 0.60 - 1.20 mg/dL [facility] CREATININE CLR CALC PHARMACY 16.51 [facility] GFR/1.73 sq M.predicted MDRD (S/P/Bld) [Vol rate/Area] 15.173 mL/min/{1.73_m2} [facility] Globulin (S) [Mass/Vol] 2.9 g/dL N [facility] Glucose [Mass/Vol] 102 mg/dL High 70 - 100 mg/dL [facility] Comment on above: Random Glucose Refer ence Range is dependent on time and content of last meal. Glucose of more than 200 mg/dL in a nonstressed, ambulatory subject supports the diagnosis of Diabetes Mellitus. ADA recommended reference range Interpretation and review of laboratory results Abnormal [facility] Potassium [Moles/Vol] 4.9 mmol/L 3.5 - 5.1 mmol/L [facility] Protein [Mass/Vol] 6.8 g/dL 6.4 - 8.9 g/dL [facility] Sodium [Moles/Vol] 138 mmol/L 136 - 145 mmol/L [facility] Urea nitrogen [Mass/Vol] 40 mg/dL High 7 - 25 mg/dL [facility] Creatinine [Mass/volume] in Serum or PlasmaOrdered By: Claire Choi on 08-01-2024 Creatinine [Mass/Vol] 2.98 mg/dL High 0.60-1.20 [facility] Comment on above: Performed By: #### P [facility] #### [facility] [address] [place] [address] [place] Eosinophils Auto (Bld) [#/Vo l]Ordered By: Claire Choi on 08-01-2024 Eosinophils (Bld) [#/Vol] Automated eosinophil count 0.0-0.45 [facility] Eosinophils/100 WBC Auto (Bl d)Ordered By: Claire Choi on 08-01-2024 Eosinophils/100 WBC (Bld) Automated eosinophil % . [facility] Erythrocyte distribution wid th [Ratio] by Automated countOrdered By: Claire Choi on 08-01-2024 Erythrocyte distribution width (RBC) [Ratio] 13.7 % Normal 11.9-15.3 [facility] Comment on above: Performed By: #### P [facility] #### [facility] [address] [place] [address] [place] Erythrocytes [#/volume] in B lood by Automated countOrdered By: Claire Choi on 08-01-2024 RBC (Bld) [#/Vol] 3.93 10*6/uL Normal 3.60-5.00 [facility] Comment on above: Performed By: #### P ATH TO [facility] #### [facility] [address] [place] [address] Free K+L LT Chains, Qn, Son 08-01-2024 Free Ritchey Light Chains, S 47.2 mg/L High 3.3-19.4 [facility] Comment on above: Performed By: #### I FE SERUM, IMM GAME, KAPPA, SPE ####[facility] , Free Lambda Light Chains, S 28.6 mg/L High 5.7-26.3 [facility] Comment on above: Performed By: #### I FE SERUM, IMM GAME, KAPPA, SPE ####[facility] , Ritchey/Lambda Ratio, S 1.65 Normal 0.26-1.65 [facility] Comment on above: Result Comment: Perf ormed at: - [facility] [address] [id number] Car Unloader: Elpidio Delgado PhD, Phone: [phone] PERFORMED BY: [place] [address] PATHOLOGIST FACILITIES MECHANICAL DESIGN ENGINEER LUIS DEE M.D. Performed By: #### I FE SERUM, IMM GAME, KAPPA, SPE ####[facility] , Globulin Calc (S) [Mass/Vol] Ordered By: Claire Choi on 08-01-2024 Globulin (S) [Mass/Vol] Serum globulin measurement by calculation (mass/volume) [facility] Glucose [Mass/volume] in Ser um or PlasmaOrdered By: Claire Choi on 08-01-2024 Glucose [Mass/Vol] 102 mg/dL High 70-100 [facility] Comment on above: ADA recommended refe rence rangeRandom Glucose Reference Range is dependent on time and content of last meal. Glucose of more than 200 mg/dL in a nonstressed, ambulatory subject supports the diagnosis of Diabetes Mellitus. Result Comment: [place] [facility] Glucose Reference Range is dependent on time and content of last meal. Glucose of more than 200 mg/dL in a nonstressed, ambulatory subject supports the diagnosis of Diabetes Mellitus. ADA recommended reference range Performed By: #### P ATH TO [facility] #### [place] [address] [place] Hematocrit [Volume Fraction] of Blood by Automated countOrdered By: Claire Choi on 08-01-2024 Hematocrit (Bld) [Volume fraction] 37.9 % Normal 34.0-46.4 [facility] Comment on above: Performed By: #### P ATH TO [facility] #### [facility] [address] [id number] [place] Hemoglobin [Mass/volume] in BloodOrdered By: Claire Choi on 08-01-2024 Hemoglobin (Bld) [Mass/Vol] 12.7 g/dL Normal 11.8-15.4 [facility] Comment on above: Performed By: #### P ATH TO [facility] #### [facility] [address] [id number] [place] IgA [Mass/volume] in Serum o r PlasmaOrdered By: Claire Choi on 08-01-2024 IgA [Mass/Vol] 241 mg/dL 64-422 [facility] IgE [Units/volume] in Serum or PlasmaOrdered By: Claire Choi on 08-01-2024 IgE Qn 13 [IU]/mL [address] Comment on above: Performed at: BN - [email or web address] [address] [id number] Director: Britton Valente MD, Phone: [phone] IgE Qn IgE [Units/volume] i n Serum or Plasma [address] [place] [address] IgG [Mass/volume] in Serum o r PlasmaOrdered By: Claire Choi on 08-01-2024 IgG [Mass/Vol] 1009 mg/dL [phone] [facility] IgM [Mass/volume] in Serum o r PlasmaOrdered By: Claire Choi on 08-01-2024 IgM [Mass/Vol] 144 mg/dL 26-217 [facility] Comment on above: Performed at: [facility] - [facility] [address] [id number] Director: Elpidio Delgado PhD, Phone: [phone] Immunofixation,Serumon 08-01 Immun[facility], Serum Comment Normal . [facility] Comment on above: Result Comment: No m onoclonality detected. Performed By: #### I FE SERUM, IMM GAME, KAPPA, SPE ####[facility] , Immunoglobulin A, Serum 241 mg/dL Normal 64-422 [facility] Comment on above: Performed By: #### I FE SERUM, IMM GAME, KAPPA, SPE ####[facility] , Immunoglobulin G 1009 mg/dL Normal [phone] [facility] Comment on above: Performed By: #### I FE SERUM, IMM GAME, KAPPA, SPE ####[facility] , Immunoglobulin M, Serum 144 mg/dL Normal 26-217 [facility] Comment on above: Result Comment: Perf ormed at: [place] [address] [place], [place] [id number] Car Unloader: Elpidio Delgado PhD, Phone: [phone] Performed By: #### I FE SERUM, IMM GAME, KAPPA, SPE ####[facility] , Immunoglobulin light chains. kappa.free [Mass/volume] in SerumOrdered By: Claire Choi on 08-01-2024 Immunoglobulin light chains.kappa.free (S) [Mass/Vol] 47.2 mg/L High 3.3-19.4 [facility] Immunoglobulin light chains. kappa.free/Immunoglobulin light chains.lambda.free [MassOrdered By: Claire Choi on 08-01-2024 Immunoglobulin light chains.kappa.free/Immuno globulin light chains.lambda.free (S) [Mass ratio] 1.65 0.26-1.65 [facility] Comment on above: Performed at: [facility] [place] [id number] Director: Elpidio Delgado PhD, Phone: [phone] Immunoglobulin light chains. lambda.free [Mass/volume] in Serum or PlasmaOrdered By: Claire Choi on 08-01-2024 Immunoglobulin light chains.lambda.free [Mass/Vol] 28.6 mg/L High 5.7-26.3 [facility] Immunoglobulins A/E/G/M, Qno n 08-01-2024 Immunoglobulin E 13 Normal 6-495 [facility] Comment on above: Result Comment: Perf ormed at: - [facility] [address], [place], [place] [id number] Car Unloader: Britton Valente MD, Phone: [phone] Performed By: #### I FE SERUM, IMM GAME, KAPPA, SPE ####[facility] , Leukocytes [#/volume] correc dominick for nucleated erythrocytes in Blood by Automated counOrdered By: Claire Choi on 08-01-2024 WBC corrected for nucl RBC Auto (Bld) [#/Vol] 9.0 10*3/uL 3.8-11.6 [facility] Leukocytes [#/volume] in Blo od by Automated countOrdered By: Claire Choi on 08-01-2024 WBC (Bld) [#/Vol] 9.0 10*3/uL Normal 3.8-11.6 [facility] Comment on above: Performed By: #### P ATH TO [facility] #### [facility] [address] [id number] [place] Lymphocytes Auto (Bld) [#/Vo l]Ordered By: Claire Choi on 08-01-2024 Lymphocytes (Bld) [#/Vol] Lymphocytes [#/volume] in Blood by Automated count 1.00-4.8 [facility] Lymphocytes [#/volume] in Bl ood by Automated countOrdered By: Claire Choi on 08-01-2024 Lymphocytes (Bld) [#/Vol] 2.8 10*3/uL Normal 1.00-4.8 [facility] Comment on above: Performed By: #### P ATH TO [facility] #### [facility] [address] [id number] [place] Lymphocytes/100 WBC Auto (Bl d)Ordered By: Claire Choi on 08-01-2024 Lymphocytes/100 WBC (Bld) Lymphocytes/100 leukocytes in Blood by Automated count . [facility] Lymphocytes/100 leukocytes i n Blood by Automated countOrdered By: Claire Choi on 08-01-2024 Lymphocytes/100 WBC (Bld) 30.8 % Normal . [facility] Comment on above: Performed By: #### P ATH TO [facility] #### [facility] [address] [place] [address] MCH [Entitic mass] by Automa dominick countOrdered By: Claire Choi on 08-01-2024 MCH (RBC) [Entitic mass] 32.5 pg Normal 24.7-34.3 [facility] Comment on above: Performed By: #### P ATH TO [facility] #### [facility] [address] [place] [address] MCHC Auto (RBC) [Mass/Vol]Or dered By: Claire Choi on 08-01-2024 MCHC (RBC) [Mass/Vol] 33.6 g/dL 32.0-35.0 [facility] MCV [Entitic volume] by Auto mated countOrdered By: Claire Choi on 08-01-2024 MCV (RBC) [Entitic vol] 96.6 fL Normal 80-100 [facility] Comment on above: Performed By: #### P ATH TO [facility] #### [facility] [address] [place] [address] Monocytes Auto (Bld) [#/Vol] Ordered By: Claire Choi on 08-01-2024 Monocytes (Bld) [#/Vol] Automated blood monocyte count 0.0-0.8 [facility] Monocytes/100 WBC Auto (Bld) Ordered By: Claire Choi on 08-01-2024 Monocytes/100 WBC (Bld) Automated monocyte % . [facility] Neutrophils Auto (Bld) [#/Vo l]Ordered By: Claire Choi on 08-01-2024 Neutrophils (Bld) [#/Vol] Neutrophils [#/volume] in Blood by Automated count 1.8-7.7 [facility] Neutrophils [#/volume] in Bl ood by Automated countOrdered By: Claire Choi on 08-01-2024 Neutrophils (Bld) [#/Vol] 5.4 10*3/uL Normal 1.8-7.7 [facility] Comment on above: Performed By: #### P ATH TO [facility] #### [facility] [address] [place] [address] [place] Neutrophils/100 WBC Auto (Bl d)Ordered By: Claire Choi on 08-01-2024 Neutrophils/100 WBC (Bld) Automated neutrophil % . [facility] No Panel InformationOrdered By: Claire Choi on 08-01-2024 Estimated GFR (CKD-EPI) 15.173 mL/Min [facility] Creatinine Clearance (Chem 16.51 [facility] Protein Electrophoresis M-Krystian Not observed g/dL Not Observed [facility] Protein Electrophoresis Note Comment . [facility] Comment on above: Protein electrophore sis scan will follow via computer,mail, or golf club weighter delivery. Serum Immunofixation Comment . [facility] Comment on above: No monoclonality det ected. Not observed g/dL Not Observed [facility] Nucleated erythrocytes [Pres ence] in Blood by Automated countOrdered By: Claire Choi on 08-01-2024 Nucleated RBC Auto Ql (Bld) 0.1 /100{WBC} 0-0.5 [facility] Nucleated RBC Auto Ql (Bld) Nucleated erythrocytes [Presence] in Blood by Automated count 0-0.5 [facility] Platelet mean volume [Entiti c volume] in Blood by Automated countOrdered By: Claire Choi on 08-01-2024 Platelet mean volume (Bld) [Entitic vol] 9.8 fL Normal 6.3-10.7 [facility] Comment on above: Performed By: #### P ATH TO [facility] #### [facility] [address] [place] [address] [place] Platelets [#/volume] in Bloo d by Automated countOrdered By: Claire Choi on 08-01-2024 Platelets (Bld) [#/Vol] 209 10*3/uL Normal 150-450 [facility] Comment on above: Performed By: #### P ATH TO [facility] #### [facility] [address] [phone] [place] Potassium [Moles/volume] in Serum or PlasmaOrdered By: Claire Choi on 08-01-2024 Potassium [Moles/Vol] 4.9 mmol/L Normal 3.5-5.1 [facility] Comment on above: Performed By: #### P ATH TO [facility] #### [address] Protein Electrophoresis, Ser umon 08-01-2024 Kxhgq-[id number] 0.1 g/dL Normal 0.0-0.4 [facility] Comment on above: Performed By: #### I FE SERUM, IMM GAME, KAPPA, SPE ####[facility] , Lqtal-6-[id number] 0.9 g/dL Normal 0.4-1.0 [facility] Comment on above: Performed By: #### I FE SERUM, IMM GAME, KAPPA, SPE ####[facility] , Beta Globulin 0.9 g/dL Normal 0.7-1.3 [facility] Comment on above: Performed By: #### I FE SERUM, IMM GAME, KAPPA, SPE ####[facility] , Gamma Globulin 1.0 g/dL Normal 0.4-1.8 [facility] Comment on above: Performed By: #### I FE SERUM, IMM GAME, KAPPA, SPE ####[facility] , M-Krystian Not Observed Normal Not Observed [facility] Comment on above: Performed By: #### I FE SERUM, IMM GAME, KAPPA, SPE ####[facility] , SPE-Note Comment Normal . [facility] Comment on above: Result Comment: Prot ein electrophoresis scan will follow via computer, mail, or golf club weighter delivery. Performed By: #### I FE SERUM, IMM GAME, KAPPA, SPE ####[facility] , Protein [Mass/volume] in Ser um or PlasmaOrdered By: Claire Choi on 08-01-2024 Protein [Mass/Vol] 6.8 g/dL Normal 6.4-8.9 [facility] Comment on above: Performed By: #### P ATH TO [facility] #### [facility] [address] Protein [Mass/Vol] 6.5 g/dL Normal 6.0-8.5 [facility] Comment on above: Performed By: #### I FE SERUM, IMM GAME, KAPPA, SPE ####[facility] , Protein [Mass/Vol] Protein [Mass/volume ] in Serum or Plasma 6.0-8.5 [facility] Serum free kappa light chain measurementOrdered By: Claire Choi on 08-01-2024 Immunoglobulin light chains.kappa.free (S) [Mass/Vol] Immunoglobulin light chains.kappa.free [Mass/volume] in Serum High 3.3-19.4 [facility] Serum globulin measurement ( mass/volume)Ordered By: Claire Choi on 08-01-2024 Globulin (S) [Mass/Vol] 3.0 g/dL Normal 2.2-3.9 [facility] Comment on above: Performed By: #### I FE SERUM, IMM GAME, KAPPA, SPE ####[facility] , Globulin (S) [Mass/Vol] Serum globulin measurement (mass/volume) 2.2-3.9 [facility] Serum globulin measurement b y calculation (mass/volume)Ordered By: Claire Choi on 08-01-2024 Globulin (S) [Mass/Vol] 2.9 g/dL Normal [facility] Comment on above: Performed By: #### P ATH TO [facility] #### [facility] [address] [place] [address] Serum immunofixation electro phoresisOrdered By: Claire Choi on 08-01-2024 Serum immunofixation electrophoresis Comment . [facility] Serum immunoglobulin free ka ppa light chains/immunoglobulin free lambda light chainsOrdered By: Claire Choi on 08-01-2024 Immunoglobulin light chains.kappa.free/Immuno globulin light chains.lambda.free (S) [Mass ratio] Immunoglobulin light chains.kappa.free/Immunog lobulin light chains.lambda.free [Mass 0.26-1.65 [facility] Serum or plasma IgA measurem ent (mass/volume)Ordered By: Claire Choi on 08-01-2024 IgA [Mass/Vol] IgA [Mass/volume] in Serum or Plasma 64-422 [facility] Serum or plasma IgG measurem ent (mass/volume)Ordered By: Claire Choi on 08-01-2024 IgG [Mass/Vol] IgG [Mass/volume] in Serum or Plasma [phone] [facility] Serum or plasma IgM measurem ent (mass/volume)Ordered By: Claire Choi on 08-01-2024 IgM [Mass/Vol] IgM [Mass/volume] in Serum or Plasma 26-217 [facility] Serum or plasma albumin leonor urement (mass/volume)Ordered By: Claire Choi on 08-01-2024 Albumin [Mass/Vol] Albumin [Mass/volume ] in Serum or Plasma 2.9-4.4 [facility] Serum or plasma albumin/glob ulin mass ratioOrdered By: Claire Choi on 08-01-2024 Albumin/Globulin [Mass ratio] 1.3 {ratio} Normal [facility] Comment on above: Performed By: #### P ATH TO [facility] #### [address] Albumin/Globulin [Mass ratio] 1.2 {ratio} Normal 0.7-1.7 [facility] Comment on above: Performed By: #### I FE SERUM, IMM GAME, KAPPA, SPE ####[facility] , Albumin/Globulin [Mass ratio] Serum or plasma albumin/globulin mass ratio 0.7-1.7 [facility] Serum or plasma alpha 1 glob ulin measurement by electrophoresis (mass/volume)Ordered By: Claire Choi on 08-01-2024 Alpha 1 globulin Elph [Mass/Vol] 0.1 g/dL 0.0-0.4 [facility] Alpha 1 globulin Elph [Mass/Vol] Serum or plasma alpha 1 globulin measurement by electrophoresis (mass/volume) 0.0-0.4 [facility] Serum or plasma alpha 2 glob ulin measurement by electrophoresis (mass/volume)Ordered By: Claire Choi on 08-01-2024 Alpha 2 globulin Elph [Mass/Vol] 0.9 g/dL 0.4-1.0 [facility] Alpha 2 globulin Elph [Mass/Vol] Serum or plasma alpha 2 globulin measurement by electrophoresis (mass/volume) 0.4-1.0 [facility] Serum or plasma anion gap de terminationOrdered By: Claire Choi on 08-01-2024 Anion gap [Moles/Vol] 12.7 mmol/L Normal 6.0-15.0 [facility] Comment on above: Performed By: #### P ATH TO [facility] #### [facility] [address] Serum or plasma beta globuli n measurement by electrophoresis (mass/volume)Ordered By: Claire Choi on 08-01-2024 Beta globulin Elph [Mass/Vol] 0.9 g/dL 0.7-1.3 [facility] Beta globulin Elph [Mass/Vol] Serum or plasma beta globulin measurement by electrophoresis (mass/volume) 0.7-1.3 [facility] Serum or plasma gamma globul in measurement by electrophoresis (mass/volume)Ordered By: Claire Choi on 08-01-2024 Gamma globulin Elph [Mass/Vol] 1.0 g/dL 0.4-1.8 [facility] Gamma globulin Elph [Mass/Vol] Serum or plasma gamma globulin measurement by electrophoresis (mass/volume) 0.4-1.8 [facility] Serum or plasma immunoglobul in free lambda light chains measurement (mass/volume)Ordered By: Claire Choi on 08-01-2024 Immunoglobulin light chains.lambda.free [Mass/Vol] Immunoglobulin light chains.lambda.free [Mass/volume] in Serum or Plasma High 5.7-26.3 [facility] Sodium [Moles/volume] in Ser um or PlasmaOrdered By: Claire Choi on 08-01-2024 Sodium [Moles/Vol] 138 mmol/L Normal 136-145 [facility] Comment on above: Performed By: #### P ATH TO [facility] #### [facility] [address] Urea nitrogen [Mass/volume] in Serum or PlasmaOrdered By: Claire Choi on 08-01-2024 Urea nitrogen [Mass/Vol] 40 mg/dL High 7-25 [facility] Comment on above: Performed By: #### P ATH TO [facility] #### [facility] [address] [id number] [facility] WBC Auto (Bld) [#/Vol]Ordere d By: Claire Choi on 08-01-2024 WBC (Bld) [#/Vol] Leukocytes [#/volume ] in Blood by Automated count 3.8-11.6 [facility] Erythrocyte distribution wid th Auto (RBC) [Ratio]on 06-27-2024 Erythrocyte distribution width (RBC) [Ratio] 12.6 % 11.0-15.0 [facility] Estimated glomerular filtrat ion rate (GFR) non- Americanon 06-27-2024 GFR/1.73 sq M.predicted among non-blacks MDRD (S/P/Bld) [Vol rate/Area] 17 mL/min/{1.73_m2} Low >=60 [facility] Hematocrit Auto (Bld) [Volum e fraction]on 06-27-2024 Hematocrit (Bld) [Volume fraction] 40.7 % 36.0-48.0 [facility] Hemoglobin [Mass/volume] in Bloodon 06-27-2024 Hemoglobin (Bld) [Mass/Vol] 13.2 g/dL 12.0-16.0 [facility] Laboratory - Chemistry and C hemistry - challengeon 06-27-2024 Bilirubin Ql (U) Negative NEGATIVE [facility] Glucose (U) [Mass/Vol] Negative NEGATIVE [facility] Ketones Ql (U) Negative NEGATIVE [facility] pH (U) 6.0 [pH] 5.0-9.0 [facility] Specific gravity (U) [Rel density] 1.020 1.005-1.02 5 [facility] Urobilinogen Qn (U) 0.2 {Marley'U}/dL 0.2-1.0 [facility] Albumin [Mass/Vol] 3.2 g/dL Low 3.4-5.0 [facility] Calcium [Mass/Vol] 8.6 mg/dL 8.5-10.1 [facility] Chloride [Moles/Vol] 103 mmol/L 98-107 [facility] CO2 [Moles/Vol] 26.2 mmol/L 21.0-32.0 [facility] Creatinine [Mass/Vol] 2.67 mg/dL High 0.55-1.02 [facility] GFR/1.73 sq M.predicted MDRD (S/P/Bld) [Vol rate/Area] 21 mL/min/{1.73_m2} Low >=60 [facility] Glucose [Mass/Vol] 139 mg/dL High 74-106 [facility] Magnesium [Mass/Vol] 2.0 mg/dL 1.8-2.4 [facility] Potassium [Moles/Vol] 5.2 mmol/L High 3.5-5.1 [facility] Sodium [Moles/Vol] 136 mmol/L 136-145 [facility] Urate [Mass/Vol] 6.4 mg/dL High 2.6-6.0 [facility] Urea nitrogen [Mass/Vol] 38.0 mg/dL High 7.0-18.0 [facility] Urea nitrogen/Creatinine [Mass ratio] 14.2 mg/mg [facility] Laboratory - Specimen inform ationon 06-27-2024 Appearance (U) CLEAR CLEAR [facility] Color (U) YELLOW YELLOW [facility] Laboratory - Urinalysison Leukocyte esterase Test strip Ql (U) MODERATE Abnormal NEGATIVE [facility] Mucus Ql (Urine sed) TRACE Abnormal NONE SEEN [facility] Nitrite Ql (U) Negative NEGATIVE [facility] Protein (U) [Mass/Vol] 85.7 mg/dL High <=11.9 [facility] Protein Ql (U) 30 mg/dL Abnormal NEG/TRACE [facility] Leukocytes [#/volume] correc dominick for nucleated erythrocytes in Blood by Automated counon 06-27-2024 WBC corrected for nucl RBC Auto (Bld) [#/Vol] 7.9 10 3/uL 4.0-11.0 [facility] MCH Auto (RBC) [Entitic mass ]on 06-27-2024 MCH (RBC) [Entitic mass] 31.6 pg 26.7-34.0 [facility] MCHC Auto (RBC) [Mass/Vol]on 06-27-2024 MCHC (RBC) [Mass/Vol] 32.4 g/dL 29.9-35.2 [facility] MCV Auto (RBC) [Entitic vol] on 06-27-2024 MCV (RBC) [Entitic vol] 97.4 fL 81.0-99.0 [facility] No Panel Informationon 06-27 Urine Bacteria MODERATE #/HPF Abnormal NONE SEEN [facility] Urine Culture Reflexed YES [facility] Urine Occult Blood TRACE-I NEGATIVE [facility] Urine Other Casts NONE SEEN #/LPF NONE SEEN [facility] Urine Other Crystals None Seen #/HPF None Seen [facility] Urine Random Creatinine 190.05 mg/dL 20.0 0-300. 00 [facility] Urine RBC NONE SEEN #/HPF 0-2 [facility] Urine Squamous Epithelial Cells FEW #/LPF Abnormal NONE/RARE [facility] Urine Transitional Epithelial Cells RARE #/LPF Abnormal NONE SEEN [facility] Urine WBC 10-20 #/HPF Abnormal NONE SEEN [facility] 25-Hydroxy Vitamin D Total 43.9 ng/mL [facility] Comment on above: <20 ng/mL Vit D defi cient20-<30 ng/mL Vit D [id number] ng/mL Vit D sufficient>100 ng/mL Potential Toxicity Parathyroid Hormone (Intact) 105 pg/mL Abnormal 15-65 [facility] Comment on above: Performed at: [facility] [address] [id number] Director: Elpidio Delgado PhD, Phone: [phone] Phosphorus Level 3.9 mg/dL 2.6-4.7 [facility] Platelet mean volume Auto (B ld) [Entitic vol]on 06-27-2024 Platelet mean volume (Bld) [Entitic vol] 12.1 fL 9.5-13.5 [facility] Platelets Auto (Bld) [#/Vol] on 06-27-2024 Platelets (Bld) [#/Vol] 188 10 3/uL 150-450 [facility] RBC Auto (Bld) [#/Vol]on RBC (Bld) [#/Vol] 4.18 10 6/uL Low 4.20-5.40 [facility] Serum or plasma anion gap de terminationon 06-27-2024 Anion gap [Moles/Vol] 12.0 mmol/L Fi [facility] Urine protein/creatinine rat ioon 06-27-2024 Protein/Creatinine (U) [Ratio] 0.45 [facility] Cholesterol in LDL Calc [Mas s/Vol]on 05-23-2024 Cholesterol in LDL [Mass/Vol] 68.6 mg/dL [facility] Comment on above: <100 mg/dl [id number] 0-129 mg/dl NEAR OR ABOVE [id number] mg/dl BORDERLINE [id number] mg/dl HIGH>190 mg/dl VERY HIGH Cholesterol in VLDL Calc [Ma ss/Vol]on 05-23-2024 Cholesterol in VLDL [Mass/Vol] 28.4 mg/dL [facility] Estimated glomerular filtrat ion rate (GFR) non- Americanon 05-23-2024 GFR/1.73 sq M.predicted among non-blacks MDRD (S/P/Bld) [Vol rate/Area] 17 mL/min/{1.73_m2} Low >=60 [facility] Laboratory - Chemistry and C hemistry - challengeon 05-23-2024 Albumin [Mass/Vol] 3.2 g/dL Low 3.4-5.0 [facility] Calcium [Mass/Vol] 8.7 mg/dL 8.5-10.1 [facility] Chloride [Moles/Vol] 104 mmol/L 98-107 [facility] Cholesterol [Mass/Vol] 154 mg/dL <=200 [facility] Cholesterol in HDL [Mass/Vol] 57 mg/dL 40-60 [facility] Comment on above: > or =60 mg/dl - LOW CARDIOVASCULAR RISK<40 mg/dl - HIGH CARDIOVASCULAR RISK CO2 [Moles/Vol] 26.2 mmol/L 21.0-32.0 [facility] Creatinine [Mass/Vol] 2.71 mg/dL High 0.55-1.02 [facility] GFR/1.73 sq M.predicted MDRD (S/P/Bld) [Vol rate/Area] 20 mL/min/{1.73_m2} Low >=60 [facility] Glucose [Mass/Vol] 147 mg/dL High 74-106 [facility] Potassium [Moles/Vol] 4.9 mmol/L 3.5-5.1 [facility] Sodium [Moles/Vol] 140 mmol/L 136-145 [facility] Triglyceride [Mass/Vol] 142 mg/dL <=150 [facility] Urea nitrogen [Mass/Vol] 31.0 mg/dL High 7.0-18.0 [facility] Urea nitrogen/Creatinine [Mass ratio] 11.4 mg/mg [facility] Microalbumin [Mass/volume] i n Urineon 05-23-2024 Albumin DL <= 20 mg/L (U) [Mass/Vol] 24.5 mg/dL <=30.0 [facility] No Panel Informationon 05-23 25-Hydroxy Vitamin D Total 46.7 ng/mL [facility] Comment on above: <20 ng/mL Vit D defi cient20-<30 ng/mL Vit D ozuvazrbcieu59-273 ng/mL Vit D sufficient>100 ng/mL Potential Toxicity C-Peptide 3.7 ng/mL 1.1-4.4 [facility] Comment on above: C-Peptide reference interval is for fasting patients.Performed at: - [facility] [id number] Director: Elpidio Delgado PhD, Phone: [phone] Phosphorus Level 4.1 mg/dL 2.6-4.7 [facility] Urine Random Creatinine 233.38 mg/dL 20.0 0-300. 00 [facility] Serum or plasma anion gap de terminationon 05-23-2024 Anion gap [Moles/Vol] 14.7 mmol/L [facility] Serum or plasma total choles terol/high density lipoprotein (HDL) cholesterol mass wilfred 05-23-2024 Cholesterol.total/Choles terol in HDL [Mass ratio] 2.7 {ratio} [facility] Comment on above: 3.3 - 4.4 LOW RISK4. 4 - 7.1 AVERAGE RISK7.1 - 11.0 MODERATE RISK>11.0 [facility] Urine microalbumin/creatinin e mass ratioon 05-23-2024 Albumin/Creatinine DL <= 20 mg/L (U) [Mass ratio] 104.9 mg/g High 0.0-29.9 [facility] Comment on above: NO MICROALBUMINURIA 0-29 MG/GCLINICAL MICROALBUMINURIA 30-300 MG/GMACROALBUMINURIA >300 MG/G Alanine aminotransferase [En zymatic activity/volume] in Serum or PlasmaOrdered By: Misti Connolly on 04-25-2024 ALT [Catalytic activity/Vol] 12 U/L Normal 7-52 [facility] Comment on above: Performed By: #### S PE, HAILEE SERUM, KAPPA ####[facility] ,#### CMP, CBC ####[facility] [id number] [place] [address] [place] Albumin [Mass/volume] in Ser um or PlasmaOrdered By: Misti Connolly on 04-25-2024 Albumin [Mass/Vol] 3.4 g/dL Normal 2.9-4.4 [facility] Comment on above: Performed By: #### S PE, HAILEE SERUM, KAPPA ####[facility] ,#### CMP, CBC ####[facility] [id number] [place] [id number] [place] Albumin [Mass/volume] in Ser um or Plasma by Bromocresol green (BCG) dye binding methoOrdered By: Misti Connolly on 04-25-2024 Albumin BCG dye [Mass/Vol] 3.6 g/dL 3.5-5.7 [facility] Alkaline phosphatase [Enzyma tic activity/volume] in Serum or PlasmaOrdered By: Misti Connolly on 04-25-2024 ALP [Catalytic activity/Vol] 106 U/L High 34-104 [facility] Comment on above: Performed By: #### S PE, HAILEE SERUM, KAPPA ####[facility] ,#### CMP, CBC ####[address] Aspartate aminotransferase [ Enzymatic activity/volume] in Serum or PlasmaOrdered By: Misti Connolly on 04-25-2024 AST [Catalytic activity/Vol] 15 U/L Normal 13-39 [facility] Comment on above: Performed By: #### S PE, HAILEE SERUM, KAPPA ####[facility] ,#### CMP, CBC ####[address] Automated basophil %Ordered By: Misti Connolly on 04-25-2024 Basophils/100 WBC (Bld) 0.6 % Normal . [facility] Comment on above: Performed By: #### S PE, HAILEE SERUM, KAPPA ####[facility] ,#### CMP, CBC ####[address] Automated basophil countOrde red By: Misti Connolly on 04-25-2024 Basophils (Bld) [#/Vol] 0.0 10*3/uL Normal 0.0-0.2 [facility] Comment on above: Result Comment: PERF ORMED BY: [facility] [address] [place] [address] PATHOLOGIST FACILITIES MECHANICAL DESIGN ENGINEER LUIS DEE M.D. Performed By: #### S PE, HAILEE SERUM, KAPPA ####[facility] ,#### CMP, CBC ####[address] Automated blood monocyte cou ntOrdered By: Misti Connolly on 04-25-2024 Monocytes (Bld) [#/Vol] 0.5 10*3/uL Normal 0.0-0.8 [facility] Comment on above: Performed By: #### S PE, HAILEE SERUM, KAPPA ####[facility] ,#### CMP, CBC ####[address] Automated eosinophil %Ordere d By: Misti Connolly on 04-25-2024 Eosinophils/100 WBC (Bld) 1.4 % Normal . [facility] Comment on above: Performed By: #### S PE, HAILEE SERUM, KAPPA ####[facility] ,#### CMP, CBC ####[address] Automated eosinophil countOr dered By: Misti Elizondogretta on 04-25-2024 Eosinophils (Bld) [#/Vol] 0.1 10*3/uL Normal 0.0-0.45 [facility] Comment on above: Performed By: #### S PE, HAILEE SERUM, KAPPA ####[facility] ,#### CMP, CBC ####[address] Automated monocyte %Ordered By: Misti Elizondogretta on 04-25-2024 Monocytes/100 WBC (Bld) 6.3 % Normal . [facility] Comment on above: Performed By: #### S PE, HAILEE SERUM, KAPPA ####[facility] ,#### CMP, CBC ####[address] Automated neutrophil %Ordere d By: Misti Jeanpamela on 04-25-2024 Neutrophils/100 WBC (Bld) 60.7 % Normal . [facility] Comment on above: Performed By: #### S PE, HAILEE SERUM, KAPPA ####[facility] ,#### CMP, CBC ####[address] Bilirubin.total [Mass/volume ] in Serum or PlasmaOrdered By: Misti Jeanpamela on 04-25-2024 Bilirubin [Mass/Vol] 0.3 mg/dL Normal 0.3-1.0 [facility] Comment on above: Performed By: #### S PE, HAILEE SERUM, KAPPA ####[facility] ,#### CMP, CBC ####[address] Calcium [Mass/volume] in Ser um or PlasmaOrdered By: Misti Connolly on 04-25-2024 Calcium [Mass/Vol] 8.6 mg/dL Normal 8.6-10.3 [facility] Comment on above: Performed By: #### S PE, HAILEE SERUM, KAPPA ####[facility] ,#### CMP, CBC ####[address] Carbon dioxide, total [Moles /volume] in Serum or PlasmaOrdered By: Misti Connolly on 04-25-2024 CO2 [Moles/Vol] 20.5 mmol/L Low 21.0-31.0 [facility] Comment on above: Performed By: #### S PE, HAILEE SERUM, KAPPA ####[facility] ,#### CMP, CBC ####[address] Chloride [Moles/volume] in S amanda or PlasmaOrdered By: Misti Connolly on 04-25-2024 Chloride [Moles/Vol] 108 mmol/L High 98-107 [facility] Comment on above: Performed By: #### S PE, HAILEE SERUM, KAPPA ####[facility] ,#### CMP, CBC ####[address] Complete Blood Count Auto Di ffon 04-25-2024 Mean Corpuscular HGB Conc 33.3 g/dL Normal 32.0-35.0 [facility] Comment on above: Performed By: #### S PE, HAILEE SERUM, KAPPA ####[facility] ,#### CMP, CBC ####[address] NRBC% 0.1 /100{WBC} Normal 0-0.5 [facility] Comment on above: Performed By: #### S PE, HAILEE SERUM, KAPPA ####[facility] ,#### CMP, CBC ####[address] Comprehensive Metabolic Pane natalia 04-25-2024 Albumin [Mass/Vol] 3.6 g/dL Normal 3.5-5.7 [facility] Comment on above: Performed By: #### S PE, HAILEE SERUM, KAPPA ####[facility] ,#### CMP, CBC ####[address] Creatinine Clr Calc Pharmacy 20.35 Normal [facility] Comment on above: Result Comment: PERF ORMED BY: [facility] [address] [place] [address] PATHOLOGIST FACILITIES MECHANICAL DESIGN ENGINEER LUIS DEE M.D. Performed By: #### S PE, HAILEE SERUM, KAPPA ####[facility] ,#### CMP, CBC ####[address] GFR/1.73 sq M.predicted MDRD (S/P/Bld) [Vol rate/Area] 19.217 mL/min/{1.73_m2} Normal [facility] Comment on above: Performed By: #### S PE, HAILEE SERUM, KAPPA ####[facility] ,#### CMP, CBC ####[address] Creatinine [Mass/volume] in Serum or PlasmaOrdered By: Misti Connolly on 04-25-2024 Creatinine [Mass/Vol] 2.46 mg/dL High 0.60-1.20 [facility] Comment on above: Performed By: #### S PE, HAILEE SERUM, KAPPA ####[facility] ,#### CMP, CBC ####[address] Erythrocyte distribution wid th [Ratio] by Automated countOrdered By: Misti Connolly on 04-25-2024 Erythrocyte distribution width (RBC) [Ratio] 14.0 % Normal 11.9-15.3 [facility] Comment on above: Performed By: #### S PE, HAILEE SERUM, KAPPA ####[facility] ,#### CMP, CBC ####[address] Erythrocytes [#/volume] in B lood by Automated countOrdered By: Misti Jeanpamela on 04-25-2024 RBC (Bld) [#/Vol] 3.86 10*6/uL Normal 3.60-5.00 [facility] Comment on above: Performed By: #### S PE, HAILEE SERUM, KAPPA ####[facility] ,#### CMP, CBC ####[address] Free K+L LT Chains, Qn, Son 04-25-2024 Free Ritchey Light Chains, S 48.0 mg/L High 3.3-19.4 [facility] Comment on above: Performed By: #### S PE, HAILEE SERUM, KAPPA ####[facility] ,#### CMP, CBC ####[address] Free Lambda Light Chains, S 30.4 mg/L High 5.7-26.3 [facility] Comment on above: Performed By: #### S PE, HAILEE SERUM, KAPPA ####[facility] ,#### CMP, CBC ####[place] [id number] [facility] Ritchey/Lambda Ratio, S 1.58 Normal 0.26-1.65 [facility] Comment on above: Result Comment: Perf ormed at: - [facility] [address] [id number] Car Unloader: Elpidio Delgado PhD, Phone: [phone] PERFORMED BY: [facility] [address] [place] [address] PATHOLOGIST FACILITIES MECHANICAL DESIGN ENGINEER LUIS DEE M.D. Performed By: #### S PE, HAILEE SERUM, KAPPA ####[facility] ,#### CMP, CBC ####[place] [address] [place] Glucose [Mass/volume] in Ser um or PlasmaOrdered By: Misti Connolly on 04-25-2024 Glucose [Mass/Vol] 242 mg/dL High 70-100 [facility] Comment on above: ADA recommended refe rence rangeRandom Glucose Reference Range is dependent on time and content of last meal. Glucose of more than 200 mg/dL in a nonstressed, ambulatory subject supports the diagnosis of Diabetes Mellitus. Result Comment: [place] Glucose Reference Range is dependent on time and content of last meal. Glucose of more than 200 mg/dL in a nonstressed, ambulatory subject supports the diagnosis of Diabetes Mellitus. ADA recommended reference range Performed By: #### S PE, HAILEE SERUM, KAPPA ####[facility] ,#### CMP, CBC ####[place] [address] [place] Hematocrit [Volume Fraction] of Blood by Automated countOrdered By: Misti Connolly on 04-25-2024 Hematocrit (Bld) [Volume fraction] 37.2 % Normal 34.0-46.4 [facility] Comment on above: Performed By: #### S PE, HAILEE SERUM, KAPPA ####[facility] ,#### CMP, CBC ####[place] [id number] [place] Hemoglobin [Mass/volume] in BloodOrdered By: Misti Connolly on 04-25-2024 Hemoglobin (Bld) [Mass/Vol] 12.4 g/dL Normal 11.8-15.4 [facility] Comment on above: Performed By: #### S PE, HAILEE SERUM, KAPPA ####[facility] ,#### CMP, CBC ####[address] [address] [facility] IgA [Mass/volume] in Serum o r PlasmaOrdered By: Claire Choi on 04-25-2024 IgA [Mass/Vol] 214 mg/dL 64-422 [facility] IgG [Mass/volume] in Serum o r PlasmaOrdered By: Claire Choi on 04-25-2024 IgG [Mass/Vol] 906 mg/dL [phone] [facility] IgM [Mass/volume] in Serum o r PlasmaOrdered By: Claire Choi on 04-25-2024 IgM [Mass/Vol] 165 mg/dL 26-217 [facility] Comment on above: Performed at: [address] Director: Elpidio Delgado PhD, Phone: [phone] Immunofixation,Serumon 04-25 Immunofixation, Serum Normal . [facility] Comment on above: Result Comment: No m onoclonality detected. Performed By: #### S PE, HAILEE SERUM, KAPPA ####[facility] ,#### CMP, CBC ####[address] [address] [place] Immunoglobulin A, Serum 222 mg/dL Normal 64-422 [facility] Comment on above: Performed By: #### S PE, HAILEE SERUM, KAPPA ####[facility] ,#### CMP, CBC ####[address] [address] [place] Immunoglobulin G 892 mg/dL Normal 586-1602 [facility] Comment on above: Performed By: #### S PE, HAILEE SERUM, KAPPA ####[facility] ,#### CMP, CBC ####[address] [place] [address] [facility] Immunoglobulin M, Serum 161 mg/dL Normal 26-217 [facility] Comment on above: Result Comment: Perf ormed at: - [facility] [address] [place], [place] [id number] Car Unloader: Elpidio Delgado PhD, Phone: [phone] Performed By: #### S PE, HAILEE SERUM, KAPPA ####[facility] ,#### CMP, CBC ####[facility] [id number] [place] [address] [facility] Immunoglobulin light chains. kappa.free [Mass/volume] in SerumOrdered By: Misti Connolly on 04-25-2024 Immunoglobulin light chains.kappa.free (S) [Mass/Vol] 48.0 mg/L High 3.3-19.4 [facility] Immunoglobulin light chains. kappa.free/Immunoglobulin light chains.lambda.free [MassOrdered By: Misti Connolly on 04-25-2024 Immunoglobulin light chains.kappa.free/Immuno globulin light chains.lambda.free (S) [Mass ratio] 1.58 0.26-1.65 [facility] Comment on above: Performed at: [facility] [address] [place] [id number] Director: Elpidio Dlegado PhD, Phone: [phone] Immunoglobulin light chains. lambda.free [Mass/volume] in Serum or PlasmaOrdered By: Misti Connolly on 04-25-2024 Immunoglobulin light chains.lambda.free [Mass/Vol] 30.4 mg/L High 5.7-26.3 [facility] Immunoglobulins A/G/M, Qn, S debby 04-25-2024 Immunoglobulin A, Serum 214 mg/dL Normal 64-422 [facility] Comment on above: Performed By: #### I MM HECTOR ####[facility] , Immunoglobulin G 906 mg/dL Normal 586-1602 [facility] Comment on above: Performed By: #### I MM HECTOR ####[facility] , Immunoglobulin M, Serum 165 mg/dL Normal 26-217 [facility] Comment on above: Result Comment: Perf ormed at: CB - [facility] [address] [id number] Car Unloader: Elpidio Delgado PhD, Phone: [phone] PERFORMED BY: [facility] [address] [place] [address] PATHOLOGIST FACILITIES MECHANICAL DESIGN ENGINEER LUIS DEE M.D. Performed By: #### I MM HECTOR ####[facility] , Leukocytes [#/volume] correc dominick for nucleated erythrocytes in Blood by Automated counOrdered By: Misti Connolly on 04-25-2024 WBC corrected for nucl RBC Auto (Bld) [#/Vol] 7.9 10*3/uL 3.8-11.6 [facility] Leukocytes [#/volume] in Blo od by Automated countOrdered By: Misti Connolly on 04-25-2024 WBC (Bld) [#/Vol] 7.9 10*3/uL Normal 3.8-11.6 [facility] Comment on above: Performed By: #### S PE, HAILEE SERUM, KAPPA ####[facility] ,#### CMP, CBC ####[facility] [id number] Lymphocytes [#/volume] in Bl ood by Automated countOrdered By: Misti Connolly on 04-25-2024 Lymphocytes (Bld) [#/Vol] 2.5 10*3/uL Normal 1.00-4.8 [facility] Comment on above: Performed By: #### S PE, HAILEE SERUM, KAPPA ####[facility] ,#### CMP, CBC ####[facility] [id number] [place] [address] [place] Lymphocytes/100 leukocytes i n Blood by Automated countOrdered By: Misti Connolly on 04-25-2024 Lymphocytes/100 WBC (Bld) 31.0 % Normal . [facility] Comment on above: Performed By: #### S PE, HAILEE SERUM, KAPPA ####[facility] ,#### CMP, CBC ####[address] MCH [Entitic mass] by Automa dominick countOrdered By: Misti Jeanpamela on 04-25-2024 MCH (RBC) [Entitic mass] 32.1 pg Normal 24.7-34.3 [facility] Comment on above: Performed By: #### S PE, HAILEE SERUM, KAPPA ####[facility] ,#### CMP, CBC ####[address] MCHC Auto (RBC) [Mass/Vol]Or dered By: Misti Mohsen on 04-25-2024 MCHC (RBC) [Mass/Vol] 33.3 g/dL 32.0-35.0 [facility] MCV [Entitic volume] by Auto mated countOrdered By: Misti Mohsen on 04-25-2024 MCV (RBC) [Entitic vol] 96.4 fL Normal 80-100 [facility] Comment on above: Performed By: #### S PE, HAILEE SERUM, KAPPA ####[facility] ,#### CMP, CBC ####[address] Neutrophils [#/volume] in Bl ood by Automated countOrdered By: Misti Jeanpamela on 04-25-2024 Neutrophils (Bld) [#/Vol] 4.8 10*3/uL Normal 1.8-7.7 [facility] Comment on above: Performed By: #### S PE, HAILEE SERUM, KAPPA ####[facility] ,#### CMP, CBC ####[address] No Panel InformationOrdered By: Misti Jeanpamela on 04-25-2024 Estimated GFR (CKD-EPI) 19.217 mL/Min [facility] Creatinine Clearance (Chem 20.35 [facility] Protein Electrophoresis M-Krystian Not observed g/dL Not Observed [facility] Protein Electrophoresis Note See comment . [facility] Comment on above: Protein electrophore sis scan will follow via computer,mail, or golf club weighter delivery.Performed at: [facility] [employer] [id number] Director: Elpidio Delgado PhD, Phone: [phone] Serum Immunofixation See comment . [facility] Comment on above: No monoclonality det ected. Nucleated erythrocytes [Pres ence] in Blood by Automated countOrdered By: Misti Mohsen on 04-25-2024 Nucleated RBC Auto Ql (Bld) 0.1 /100{WBC} 0-0.5 [facility] Platelet mean volume [Entiti c volume] in Blood by Automated countOrdered By: Misti Mohsen on 04-25-2024 Platelet mean volume (Bld) [Entitic vol] 10.2 fL Normal 6.3-10.7 [facility] Comment on above: Performed By: #### S PE, HAILEE SERUM, KAPPA ####[facility] ,#### CMP, CBC ####[address] Platelets [#/volume] in Bloo d by Automated countOrdered By: Misti Mohsen on 04-25-2024 Platelets (Bld) [#/Vol] 161 10*3/uL Normal 150-450 [facility] Comment on above: Performed By: #### S PE, HAILEE SERUM, KAPPA ####[facility] ,#### CMP, CBC ####[address] Potassium [Moles/volume] in Serum or PlasmaOrdered By: Misti Mohsen on 04-25-2024 Potassium [Moles/Vol] 4.6 mmol/L Normal 3.5-5.1 [facility] Comment on above: Performed By: #### S PE, HAILEE SERUM, KAPPA ####[facility] ,#### CMP, CBC ####[place] [address] [address] Protein Electrophoresis, Ser umon 04-25-2024 Pomaf-4-Kqynpikt 0.1 g/dL Normal 0.0-0.4 [facility] Comment on above: Performed By: #### S PE, HAILEE SERUM, KAPPA ####[facility] ,#### CMP, CBC ####[address] Eeljg-6-Oxgexcfd 0.9 g/dL Normal 0.4-1.0 [facility] Comment on above: Performed By: #### S PE, HAILEE SERUM, KAPPA ####[facility] ,#### CMP, CBC ####[address] Beta Globulin 0.8 g/dL Normal 0.7-1.3 [facility] Comment on above: Performed By: #### S PE, HAILEE SERUM, KAPPA ####[facility] ,#### CMP, CBC ####[address] Gamma Globulin 0.9 g/dL Normal 0.4-1.8 [facility] Comment on above: Performed By: #### S PE, HAILEE SERUM, KAPPA ####[facility] ,#### CMP, CBC ####[address] M-Krystian Not Observed Normal Not Observed [facility] Comment on above: Performed By: #### S PE, HAILEE SERUM, KAPPA ####[facility] ,#### CMP, CBC ####[address] SPE-Note Normal . [facility] Comment on above: Result Comment: Prot ein electrophoresis scan will follow via computer, mail, or golf club weighter delivery. Performed at: [facility] [address] [id number] Car Unloader: Elpidio Delgado PhD, Phone: [phone] Performed By: #### S PE, HAILEE SERUM, KAPPA ####[facility] ,#### CMP, CBC ####[address] Protein [Mass/volume] in Ser um or PlasmaOrdered By: Misti Jeanpamela on 04-25-2024 Protein [Mass/Vol] 6.3 g/dL Low 6.4-8.9 [facility] Comment on above: Performed By: #### S PE, HAILEE SERUM, KAPPA ####[facility] ,#### CMP, CBC ####[address] Protein [Mass/Vol] 6.1 g/dL Normal 6.0-8.5 [facility] Comment on above: Performed By: #### S PE, HAILEE SERUM, KAPPA ####[facility] ,#### CMP, CBC ####[address] Serum globulin measurement b y calculation (mass/volume)Ordered By: Misti Jeanpamela on 04-25-2024 Globulin (S) [Mass/Vol] 2.7 g/dL Normal 2.2-3.9 [facility] Comment on above: Performed By: #### S PE, HAILEE SERUM, KAPPA ####[facility] ,#### CMP, CBC ####[address] Serum or plasma albumin/glob ulin mass ratioOrdered By: Misti Jeanpamela on 04-25-2024 Albumin/Globulin [Mass ratio] 1.3 {ratio} Normal 0.7-1.7 [facility] Comment on above: Performed By: #### S PE, HAILEE SERUM, KAPPA ####[facility] ,#### CMP, CBC ####[address] Serum or plasma alpha 1 glob ulin measurement by electrophoresis (mass/volume)Ordered By: Misti Jenapamela on 04-25-2024 Alpha 1 globulin Elph [Mass/Vol] 0.1 g/dL 0.0-0.4 [facility] Serum or plasma alpha 2 glob ulin measurement by electrophoresis (mass/volume)Ordered By: Misti Jeanpamela on 04-25-2024 Alpha 2 globulin Elph [Mass/Vol] 0.9 g/dL 0.4-1.0 [facility] Serum or plasma anion gap de terminationOrdered By: Misti Jeanpamela on 04-25-2024 Anion gap [Moles/Vol] 12.1 mmol/L Normal 6.0-15.0 [facility] Comment on above: Performed By: #### S PE, HAILEE SERUM, KAPPA ####[facility] ,#### CMP, CBC ####[facility] [id number] [place] [address] Serum or plasma beta globuli n measurement by electrophoresis (mass/volume)Ordered By: Misti Jeanpamela on 04-25-2024 Beta globulin Elph [Mass/Vol] 0.8 g/dL 0.7-1.3 [facility] Serum or plasma gamma globul in measurement by electrophoresis (mass/volume)Ordered By: Misti Jeanpamela on 04-25-2024 Gamma globulin Elph [Mass/Vol] 0.9 g/dL 0.4-1.8 [facility] Sodium [Moles/volume] in Ser um or PlasmaOrdered By: Misti Jeanpamela on 04-25-2024 Sodium [Moles/Vol] 136 mmol/L Normal 136-145 [facility] Comment on above: Performed By: #### S PE, HAILEE SERUM, KAPPA ####[facility] ,#### CMP, CBC ####[facility] [id number] Urea nitrogen [Mass/volume] in Serum or PlasmaOrdered By: Misti Jeanpamela on 04-25-2024 Urea nitrogen [Mass/Vol] 31 mg/dL High 7-25 [facility] Comment on above: Performed By: #### S PE, HAILEE SERUM, KAPPA ####[facility] ,#### CMP, CBC ####[facility] Laboratory - Chemistry and C hemistry - challengeon 04-12-2024 Bilirubin Ql (U) Negative [facility] Glucose (U) [Mass/Vol] Negative Fi relaFormerly [facility] Ketones Ql (U) Negative [facility] pH (U) 6.0 [pH] [facility] Specific gravity (U) [Rel density] 1.005 [facility] Urobilinogen (U) [Mass/Vol] 0 mg/dL [facility] Laboratory - Specimen inform ationon 04-12-2024 Appearance (U) cloudy [facility] [facility] Color (U) yellow [facility] Laboratory - Urinalysison Leukocyte esterase Test strip Ql (U) 70+ [facility] Nitrite Ql (U) Negative [facility] Protein Ql (U) 30 [facility] No Panel Informationon 04-12 Urine Occult Blood Negative [facility] Urine Cultureon 04-12-2024 Bacteria identified Cx Nom (U) 20,000 colonies/ml mixed bacterial skin contaminants 2 Days PERFORMED BY: [facility] [address] [place] [address] PATHOLOGIST FACILITIES MECHANICAL DESIGN ENGINEER LUIS DEE M.D. Normal [facility] Comment on above: Performed By: #### B MP #### [facility] [address] Urine culture routineOrdered By: Curt Clark on 04-12-2024 Bacteria identified Cx Nom (U) 2 Days [facility] Glucose mean value [Mass/vol ume] in Blood Estimated from glycated hemoglobinon 02-15-2024 Average glucose Estimated from glycated hemoglobin (Bld) [Mass/Vol] 166 mg/dL [facility] - Hematology and Cell countson 02-15-2024 HbA1c (Bld) [Mass fraction] 7.4 % 4.5-6.2 [facility] Comment on above: ADA RECOMMENDED LIMI T 4.0 - 6.0ADA THERAPEUTIC TARGET < 7.0ACTION SUGGESTED> 7.0 Alanine aminotransferase [En zymatic activity/volume] in Serum or PlasmaOrdered By: Claire Choi on 01-17-2024 ALT [Catalytic activity/Vol] 8 U/L Normal 7-52 [facility] Comment on above: Performed By: #### S PE, KAPPA, HAILEE SERUM ####[facility] ,#### CMP, CBC ####[address] Albumin [Mass/volume] in Ser um or PlasmaOrdered By: Claire Choi on 01-17-2024 Albumin [Mass/Vol] 3.4 g/dL Normal 2.9-4.4 [facility] Comment on above: Performed By: #### S PE, KAPPA, HAILEE SERUM ####[facility] ,#### CMP, CBC ####[address] Albumin [Mass/volume] in Ser um or Plasma by Bromocresol green (BCG) dye binding methoOrdered By: Claire Choi on 01-17-2024 Albumin BCG dye [Mass/Vol] 3.8 g/dL 3.5-5.7 [facility] Alkaline phosphatase [Enzyma tic activity/volume] in Serum or PlasmaOrdered By: Claire Choi on 01-17-2024 ALP [Catalytic activity/Vol] 103 U/L Normal 34-104 [facility] Comment on above: Performed By: #### S PE, KAPPA, HAILEE SERUM ####[facility] ,#### CMP, CBC ####[place] [address] [place] Aspartate aminotransferase [ Enzymatic activity/volume] in Serum or PlasmaOrdered By: Claire Choi on 01-17-2024 AST [Catalytic activity/Vol] 12 U/L Low 13-39 [facility] Comment on above: Performed By: #### S PE, KAPPA, HAILEE SERUM ####[facility] ,#### CMP, CBC ####[address] Automated basophil %Ordered By: Claire Choi on 01-17-2024 Basophils/100 WBC (Bld) 0.6 % Normal . [facility] Comment on above: Performed By: #### S PE, KAPPA, HAILEE SERUM ####[facility] ,#### CMP, CBC ####[address] Automated basophil countOrde red By: Claire Choi on 01-17-2024 Basophils (Bld) [#/Vol] 0.1 10*3/uL Normal 0.0-0.2 [facility] Comment on above: Result Comment: PERF ORMED BY: [facility] [address] [facility] [facility] [place] [address] PATHOLOGIST FACILITIES MECHANICAL DESIGN ENGINEER LUIS DEE M.D. Performed By: #### S PE, KAPPA, HAILEE SERUM ####[facility] ,#### CMP, CBC ####[address] Automated blood monocyte cou ntOrdered By: Claire Choi on 01-17-2024 Monocytes (Bld) [#/Vol] 0.6 10*3/uL Normal 0.0-0.8 [facility] Comment on above: Performed By: #### S PE, KAPPA, HAILEE SERUM ####[facility] ,#### CMP, CBC ####[address] Automated eosinophil %Ordere d By: Claire Choi on 01-17-2024 Eosinophils/100 WBC (Bld) 2.0 % Normal . [facility] Comment on above: Performed By: #### S PE, KAPPA, HAILEE SERUM ####[facility] ,#### CMP, CBC ####[facility] [address] Automated eosinophil countOr dered By: Claire Choi on 01-17-2024 Eosinophils (Bld) [#/Vol] 0.2 10*3/uL Normal 0.0-0.45 [facility] Comment on above: Performed By: #### S PE, KAPPA, HAILEE SERUM ####[facility] ,#### CMP, CBC ####[address] Automated monocyte %Ordered By: Claire Choi on 01-17-2024 Monocytes/100 WBC (Bld) 7.4 % Normal . [facility] Comment on above: Performed By: #### S PE, KAPPA, HAILEE SERUM ####[facility] ,#### CMP, CBC ####[address] Automated neutrophil %Ordere d By: Claire Choi on 01-17-2024 Neutrophils/100 WBC (Bld) 64.6 % Normal . [facility] Comment on above: Performed By: #### S PE, KAPPA, HAILEE SERUM ####[facility] ,#### CMP, CBC ####[address] Bilirubin.total [Mass/volume ] in Serum or PlasmaOrdered By: Claire Choi on 01-17-2024 Bilirubin [Mass/Vol] 0.5 mg/dL Normal 0.3-1.0 [facility] Comment on above: Performed By: #### S PE, KAPPA, HAILEE SERUM ####[facility] ,#### CMP, CBC ####[address] Calcium [Mass/volume] in Ser um or PlasmaOrdered By: Claire Choi on 01-17-2024 Calcium [Mass/Vol] 8.6 mg/dL Normal 8.6-10.3 [facility] Comment on above: Performed By: #### S PE, KAPPA, HAILEE SERUM ####[facility] ,#### CMP, CBC ####[address] Carbon dioxide, total [Moles /volume] in Serum or PlasmaOrdered By: Claire Choi on 01-17-2024 CO2 [Moles/Vol] 20.0 mmol/L Low 21.0-31.0 [facility] Comment on above: Performed By: #### S PE, KAPPA, HAILEE SERUM ####[facility] ,#### CMP, CBC ####[address] Chloride [Moles/volume] in S amanda or PlasmaOrdered By: Claire Choi on 01-17-2024 Chloride [Moles/Vol] 112 mmol/L High 98-107 [facility] Comment on above: Performed By: #### S PE, KAPPA, HAILEE SERUM ####[facility] ,#### CMP, CBC ####[address] Complete Blood Count Auto Di ffon 01-17-2024 Mean Corpuscular HGB Conc 33.7 g/dL Normal 32.0-35.0 [facility] Comment on above: Performed By: #### S PE, KAPPA, HAILEE SERUM ####[facility] ,#### CMP, CBC ####[address] NRBC% 0.0 /100{WBC} Normal 0-0.5 [facility] Comment on above: Performed By: #### S PE, KAPPA, HAILEE SERUM ####[facility] ,#### CMP, CBC ####[address] Comprehensive Metabolic Pane natalia 01-17-2024 Albumin [Mass/Vol] 3.8 g/dL Normal 3.5-5.7 [facility] Comment on above: Performed By: #### S PE, KAPPA, HAILEE SERUM ####[facility] ,#### CMP, CBC ####[address] Creatinine Clr Calc Pharmacy 21.10 Normal [facility] Comment on above: Result Comment: PERF ORMED BY: [facility] [address] [place] [address] PATHOLOGIST FACILITIES MECHANICAL DESIGN ENGINEER LUIS DEE M.D. Performed By: #### S PE, KAPPA, HAILEE SERUM ####[facility] ,#### CMP, CBC ####[address] GFR/1.73 sq M.predicted MDRD (S/P/Bld) [Vol rate/Area] 20.724 mL/min/{1.73_m2} Normal [facility] Comment on above: Performed By: #### S PE, KAPPA, HAILEE SERUM ####[facility] ,#### CMP, CBC ####[address] Creatinine [Mass/volume] in Serum or PlasmaOrdered By: Claire Choi on 01-17-2024 Creatinine [Mass/Vol] 2.31 mg/dL High 0.60-1.20 [facility] Comment on above: Performed By: #### S PE, KAPPA, HAILEE SERUM ####[facility] ,#### CMP, CBC ####[address] Erythrocyte distribution wid th [Ratio] by Automated countOrdered By: Claire Choi on 01-17-2024 Erythrocyte distribution width (RBC) [Ratio] 13.3 % Normal 11.9-15.3 [facility] Comment on above: Performed By: #### S PE, KAPPA, HAILEE SERUM ####[facility] ,#### CMP, CBC ####[address] Erythrocytes [#/volume] in B lood by Automated countOrdered By: Claire Choi on 01-17-2024 RBC (Bld) [#/Vol] 3.96 10*6/uL Normal 3.60-5.00 [facility] Comment on above: Performed By: #### S PE, KAPPA, HALIEE SERUM ####[facility] ,#### CMP, CBC ####[address] Free K+L LT Chains, Qn, Son 01-17-2024 Free Ritchey Light Chains, S 39.5 mg/L High 3.3-19.4 [facility] Comment on above: Performed By: #### S PE, KAPPA, HAILEE SERUM ####[facility] ,#### CMP, CBC ####[address] Free Lambda Light Chains, S 22.8 mg/L Normal 5.7-26.3 [facility] Comment on above: Performed By: #### S PE, KAPPA, HAILEE SERUM ####[facility] ,#### CMP, CBC ####[address] Ritchey/Lambda Ratio, S 1.73 High 0.26-1.65 [facility] Comment on above: Result Comment: Perf ormed at: CB - [facility] [address] [id number] Car Unloader: Elpidio Delgado PhD, Phone: [phone] PERFORMED BY: [facility] [address] [facility] [place] [address] PATHOLOGIST FACILITIES MECHANICAL DESIGN ENGINEER LUIS DEE M.D. Performed By: #### S PE, KAPPA, HAILEE SERUM ####[facility] ,#### CMP, CBC ####[address] [place] [address] [place] Glucose [Mass/volume] in Ser um or PlasmaOrdered By: Claire Choi on 01-17-2024 Glucose [Mass/Vol] 150 mg/dL High 70-100 [facility] Comment on above: ADA recommended refe rence rangeRandom Glucose Reference Range is dependent on time and content of last meal. Glucose of more than 200 mg/dL in a nonstressed, ambulatory subject supports the diagnosis of Diabetes Mellitus. Result Comment: [place] Glucose Reference Range is dependent on time and content of last meal. Glucose of more than 200 mg/dL in a nonstressed, ambulatory subject supports the diagnosis of Diabetes Mellitus. ADA recommended reference range Performed By: #### S PE, KAPPA, HAILEE SERUM ####[facility] ,#### CMP, CBC ####[address] Hematocrit [Volume Fraction] of Blood by Automated countOrdered By: Claire Choi on 01-17-2024 Hematocrit (Bld) [Volume fraction] 37.6 % Normal 34.0-46.4 [facility] Comment on above: Performed By: #### S PE, KAPPA, HAILEE SERUM ####[facility] ,#### CMP, CBC ####[address] Hemoglobin [Mass/volume] in BloodOrdered By: Claire Choi on 01-17-2024 Hemoglobin (Bld) [Mass/Vol] 12.7 g/dL Normal 11.8-15.4 [facility] Comment on above: Performed By: #### S PE, KAPPA, HAILEE SERUM ####[facility] ,#### CMP, CBC ####[place] [address] [place] IgA [Mass/volume] in Serum o r PlasmaOrdered By: Claire Choi on 01-17-2024 IgA [Mass/Vol] 214 mg/dL 64-422 [facility] IgG [Mass/volume] in Serum o r PlasmaOrdered By: Claire Choi on 01-17-2024 IgG [Mass/Vol] 896 mg/dL [phone] [facility] IgM [Mass/volume] in Serum o r PlasmaOrdered By: Claire Choi on 01-17-2024 IgM [Mass/Vol] 187 mg/dL 26-217 [facility] Comment on above: Performed at: - [facility] [id number] [place], [place] [id number] Director: Elpidio Delgado PhD, Phone: [phone] Immunofixation,Serumon 01-16 Immunofixation, Serum Normal . [facility] Comment on above: Result Comment: No m onoclonality detected. Performed By: #### S PE, KAPPA, HAILEE SERUM ####[facility] ,#### CMP, CBC ####[address] [address] [facility] Immunoglobulin A, Serum 214 mg/dL Normal 64-422 [facility] Comment on above: Performed By: #### S PE, KAPPA, HAILEE SERUM ####[facility] ,#### CMP, CBC ####[place] [id number] [place] Immunoglobulin G 896 mg/dL Normal 586-1602 [facility] Comment on above: Performed By: #### S PE, KAPPA, HAILEE SERUM ####[facility] ,#### CMP, CBC ####[address] [address] [facility] Immunoglobulin M, Serum 187 mg/dL Normal 26-217 [facility] Comment on above: Result Comment: Perf ormed at: - [facility] [address] [place], [place] [id number] Car Unloader: Elpidio Delgado PhD, Phone: [phone] Performed By: #### S PE, KAPPA, HAILEE SERUM ####[facility] ,#### CMP, CBC ####[address] [address] [place] Immunoglobulin light chains. kappa.free [Mass/volume] in SerumOrdered By: Claire Choi on 01-17-2024 Immunoglobulin light chains.kappa.free (S) [Mass/Vol] 39.5 mg/L 3.3-19.4 [facility] Immunoglobulin light chains. kappa.free/Immunoglobulin light chains.lambda.free [MassOrdered By: Claire Choi on 01-17-2024 Immunoglobulin light chains.kappa.free/Immuno globulin light chains.lambda.free (S) [Mass ratio] 1.73 0.26-1.65 [facility] Comment on above: Performed at: [place] [id number] Director: Elpidio Delgado PhD, Phone: [phone] Immunoglobulin light chains. lambda.free [Mass/volume] in Serum or PlasmaOrdered By: Claire Choi on 01-17-2024 Immunoglobulin light chains.lambda.free [Mass/Vol] 22.8 mg/L 5.7-26.3 [facility] Leukocytes [#/volume] correc dominick for nucleated erythrocytes in Blood by Automated counOrdered By: Claire Choi on 01-17-2024 WBC corrected for nucl RBC Auto (Bld) [#/Vol] 8.5 10*3/uL 3.8-11.6 [facility] Leukocytes [#/volume] in Blo od by Automated countOrdered By: Claire Choi on 01-17-2024 WBC (Bld) [#/Vol] 8.5 10*3/uL Normal 3.8-11.6 [facility] Comment on above: Performed By: #### S PE, KAPPA, HAILEE SERUM ####[facility] ,#### CMP, CBC ####[facility] [id number] Lymphocytes [#/volume] in Bl ood by Automated countOrdered By: Claire Choi on 01-17-2024 Lymphocytes (Bld) [#/Vol] 2.2 10*3/uL Normal 1.00-4.8 [facility] Comment on above: Performed By: #### S PE, KAPPA, HAILEE SERUM ####[facility] ,#### CMP, CBC ####[address] Lymphocytes/100 leukocytes i n Blood by Automated countOrdered By: Claire Choi on 01-17-2024 Lymphocytes/100 WBC (Bld) 25.4 % Normal . [facility] Comment on above: Performed By: #### S PE, KAPPA, HAILEE SERUM ####[facility] ,#### CMP, CBC ####[address] MCH [Entitic mass] by Automa dominick countOrdered By: Claire Choi on 01-17-2024 MCH (RBC) [Entitic mass] 31.9 pg Normal 24.7-34.3 [facility] Comment on above: Performed By: #### S PE, KAPPA, HAILEE SERUM ####[facility] ,#### CMP, CBC ####[address] MCHC Auto (RBC) [Mass/Vol]Or dered By: Claire Choi on 01-17-2024 MCHC (RBC) [Mass/Vol] 33.7 g/dL 32.0-35.0 [facility] MCV [Entitic volume] by Auto mated countOrdered By: Claire Choi on 01-17-2024 MCV (RBC) [Entitic vol] 94.8 fL Normal 80-100 [facility] Comment on above: Performed By: #### S PE, KAPPA, HAILEE SERUM ####[facility] ,#### CMP, CBC ####[address] Neutrophils [#/volume] in Bl ood by Automated countOrdered By: Claire Choi on 01-17-2024 Neutrophils (Bld) [#/Vol] 5.5 10*3/uL Normal 1.8-7.7 [facility] Comment on above: Performed By: #### S PE, KAPPA, HAILEE SERUM ####[facility] ,#### CMP, CBC ####[facility] [id number] No Panel InformationOrdered By: Claire Choi on 01-17-2024 Estimated GFR (CKD-EPI) 20.724 mL/Min [facility] Creatinine Clearance (Chem 21.10 [facility] Protein Electrophoresis M-Krystian Comment: g/dL Not Observed [facility] Comment on above: SPE shows a beta hector ma band of restricted mobility due tofibrinogen in the plasma sample submitted. Protein Electrophoresis Note See comment . [facility] Comment on above: Protein electrophore sis scan will follow via computer,mail, or golf club weighter delivery.Performed at: [place] [id number] Director: Elpidio Delgado PhD, Phone: [phone] Serum Immunofixation See comment . [facility] Comment on above: No monoclonality det ected. Nucleated erythrocytes [Pres ence] in Blood by Automated countOrdered By: Claire Choi on 01-17-2024 Nucleated RBC Auto Ql (Bld) 0.0 /100{WBC} 0-0.5 [facility] Platelet mean volume [Entiti c volume] in Blood by Automated countOrdered By: Claire Choi on 01-17-2024 Platelet mean volume (Bld) [Entitic vol] 10.1 fL Normal 6.3-10.7 [facility] Comment on above: Performed By: #### S PE, KAPPA, HAILEE SERUM ####[facility] ,#### CMP, CBC ####[facility] [id number] Platelets [#/volume] in Bloo d by Automated countOrdered By: Claire Choi on 01-17-2024 Platelets (Bld) [#/Vol] 201 10*3/uL Normal 150-450 [facility] Comment on above: Performed By: #### S PE, KAPPA, HAILEE SERUM ####[facility] ,#### CMP, CBC ####[address] Potassium [Moles/volume] in Serum or PlasmaOrdered By: Claire Choi on 01-17-2024 Potassium [Moles/Vol] 4.6 mmol/L Normal 3.5-5.1 [facility] Comment on above: Performed By: #### S PE, KAPPA, HAILEE SERUM ####[facility] ,#### CMP, CBC ####[address] Protein Electrophoresis, Ser umon 01-17-2024 Hskgj-3-Cbsuasnl 0.1 g/dL Normal 0.0-0.4 [facility] Comment on above: Performed By: #### S PE, KAPPA, HAILEE SERUM ####[facility] ,#### CMP, CBC ####[address] Vmfby-3-Sgmgymyy 0.8 g/dL Normal 0.4-1.0 [facility] Comment on above: Performed By: #### S PE, KAPPA, HAILEE SERUM ####[facility] ,#### CMP, CBC ####[address] Beta Globulin 0.9 g/dL Normal 0.7-1.3 [facility] Comment on above: Performed By: #### S PE, KAPPA, HAILEE SERUM ####[facility] ,#### CMP, CBC ####[address] Gamma Globulin 1.2 g/dL Normal 0.4-1.8 [facility] Comment on above: Performed By: #### S PE, KAPPA, HAILEE SERUM ####[facility] ,#### CMP, CBC ####[address] M-Krystian Comment: Normal Not Observed [facility] Comment on above: Result Comment: SPE shows a beta gamma band of restricted mobility due to fibrinogen in the plasma sample submitted. Performed By: #### S PE, KAPPA, HAILEE SERUM ####[facility] ,#### CMP, CBC ####[address] SPE-Note Normal . [facility] Comment on above: Result Comment: Prot ein electrophoresis scan will follow via computer, mail, or golf club weighter delivery. Performed at: [address] [id number] Car Unloader: Elpidio Delgado PhD, Phone: [phone] Performed By: #### S PE, KAPPA, HAILEE SERUM ####[facility] ,#### CMP, CBC ####[address] Protein [Mass/volume] in Ser um or PlasmaOrdered By: Claire Choi on 01-17-2024 Protein [Mass/Vol] 6.6 g/dL Normal 6.4-8.9 [facility] Comment on above: Performed By: #### S PE, KAPPA, HAILEE SERUM ####[facility] ,#### CMP, CBC ####[address] Protein [Mass/Vol] 6.5 g/dL Normal 6.0-8.5 [facility] Comment on above: Performed By: #### S PE, KAPPA, HAILEE SERUM ####[facility] ,#### CMP, CBC ####[address] Serum globulin measurement ( mass/volume)Ordered By: Claire Choi on 01-17-2024 Globulin (S) [Mass/Vol] 3.1 g/dL Normal 2.2-3.9 [facility] Comment on above: Performed By: #### S PE, KAPPA, HAILEE SERUM ####[facility] ,#### CMP, CBC ####[address] Serum globulin measurement b y calculation (mass/volume)Ordered By: Claire Choi on 01-17-2024 Globulin (S) [Mass/Vol] 2.8 g/dL Normal [facility] Comment on above: Performed By: #### S PE, KAPPA, HAILEE SERUM ####[facility] ,#### CMP, CBC ####[address] Serum or plasma albumin/glob ulin mass ratioOrdered By: Claire Choi on 01-17-2024 Albumin/Globulin [Mass ratio] 1.4 {ratio} Normal [facility] Comment on above: Performed By: #### S PE, KAPPA, HAILEE SERUM ####[facility] ,#### CMP, CBC ####[address] Albumin/Globulin [Mass ratio] 1.1 {ratio} Normal 0.7-1.7 [facility] Comment on above: Performed By: #### S PE, KAPPA, HAILEE SERUM ####[facility] ,#### CMP, CBC ####[address] Serum or plasma alpha 1 glob ulin measurement by electrophoresis (mass/volume)Ordered By: Claire Choi on 01-17-2024 Alpha 1 globulin Elph [Mass/Vol] 0.1 g/dL 0.0-0.4 [facility] Serum or plasma alpha 2 glob ulin measurement by electrophoresis (mass/volume)Ordered By: Claire Choi on 01-17-2024 Alpha 2 globulin Elph [Mass/Vol] 0.8 g/dL 0.4-1.0 [facility] Serum or plasma anion gap de terminationOrdered By: Claire Choi on 01-17-2024 Anion gap [Moles/Vol] 10.6 mmol/L Normal 6.0-15.0 [facility] Comment on above: Performed By: #### S PE, KAPPA, HAILEE SERUM ####[facility] ,#### CMP, CBC ####[address] Serum or plasma beta globuli n measurement by electrophoresis (mass/volume)Ordered By: Claire Choi on 01-17-2024 Beta globulin Elph [Mass/Vol] 0.9 g/dL 0.7-1.3 [facility] Serum or plasma gamma globul in measurement by electrophoresis (mass/volume)Ordered By: Claire Choi on 01-17-2024 Gamma globulin Elph [Mass/Vol] 1.2 g/dL 0.4-1.8 [facility] Sodium [Moles/volume] in Ser um or PlasmaOrdered By: Claire Choi on 01-17-2024 Sodium [Moles/Vol] 138 mmol/L Normal 136-145 [facility] Comment on above: Performed By: #### S PE, KAPPA, HAILEE SERUM ####[facility] ,#### CMP, CBC ####[address] Urea nitrogen [Mass/volume] in Serum or PlasmaOrdered By: Claire Choi on 01-17-2024 Urea nitrogen [Mass/Vol] 41 mg/dL High 7-25 [facility] Comment on above: Performed By: #### S PE, KAPPA, HAILEE SERUM ####[facility] ,#### CMP, CBC ####[address] Ambulatory Visit Summaryon 0 01-09-2024 Ambulatory Visit Summary HAILEE TRIVEDI :1940 Visit Date:01/09/2024 Ambulatory Visit Instructions Your Diagnosis History of kidney stones Microhematuria Nocturia Tests Performed XR Abdomen 1 View -- Results Pending -- Please visit your patient portal for your results or contact your primary care physician. Your Care Team Attending Physician - Tyere PARK MD Primary Care Physician - CURT CLARK MD [...] Follow-Up Appointments Tuesday 10:15 AM EST With: Tyree PARK MD Where: [facility] Patient Educationon 01-09-20 Patient Education [...] ? 8 oz (237 mL) of milk, hzpaxbb-xojvovcsmhrf-fftf y milk, and calcium-fortifiedfruit juice. Calcium-fortified means [...] Spinach (cooked), rhubarb, beets, sweet potatoes, and Bhutanese chard. ? Peanuts. ? Potato chips, moroccan fries, and baked potatoes with skin on. ? Nuts and nut products. ? Chocolate. ? If you regularly take a diuretic medicine, make sure to eat at least 1 or 2 servings of fruits or vegetables that are high in potassium each day. These include: ? Avocado. ? Banana. ? [place], prune, carrot, or tomato juice. ? Baked [...] fish oil, or vitamin B6. ? Take iwje-kop-eqavppf and prescription medicines only as told by your health care provider. These include supplements. What foods sh (more content not included)... Normal [facility] Urology Office/Clinic Noteon 01-09-2024 Urology Office/Clinic [...] Information XAVIER VELAZQUEZ, Tyree Rivers, [facility] [address], [place] [address] [phone] Additional Instructions: 1 yr w/ KUB Patient [...] Rash) pr (more content not included)... Normal [facility] Comment on above: Result Comment: Elec tronically Signed By: Tyree PARK MD\.br\Date and Time Signed: 01/09/24 09:42 EST\.br\Electronically Co-Signed By: Tanya Schwartz.br\Date and Time Co-Signed: 01/09/24 09:41 EST RAD - MISCon 01-06-2024 RAD - MISC [id number] Normal [facility] Automated epithelial cells c ount in urine sediment (number/area)on 12-27-2023 Epithelial cells Auto (Urine sed) [#/Area] RARE #/LPF NONE/RARE [facility] Automated leukocytes count i n urine sediment (number/area)on 12-27-2023 WBC Auto (Urine sed) [#/Area] 0-2 #/HPF 0-2 [facility] Automated urine specific gra vity by refractometryon 12-27-2023 Specific gravity Refractometry automated (U) [Rel density] 1.010 1.005-1.02 5 [facility] Bilirubin Auto test strip (U ) [Mass/Vol]on 12-27-2023 Bilirubin (U) [Mass/Vol] Negative NEGATIVE [facility] Casts typing in urine sedime nt by light microscopyon 12-27-2023 Casts LM Nom (Urine sed) NONE SEEN #/LPF NONE S EEN [facility] Color Auto (U)on 12-27-2023 Color (U) LT. YELLOW YELLOW [facility] Erythrocyte distribution wid th Auto (RBC) [Ratio]on 12-27-2023 Erythrocyte distribution width (RBC) [Ratio] 12.5 % 11.0-15.0 [facility] Estimated glomerular filtrat ion rate (GFR) non- Americanon 12-27-2023 GFR/1.73 sq M.predicted among non-blacks MDRD (S/P/Bld) [Vol rate/Area] 18 mL/min/{1.73_m2} >=60 [facility] Hematocrit Auto (Bld) [Volum e fraction]on 12-27-2023 Hematocrit (Bld) [Volume fraction] 40.2 % 36.0-48.0 [facility] Hemoglobin [Mass/volume] in Bloodon 12-27-2023 Hemoglobin (Bld) [Mass/Vol] 12.9 g/dL 12.0-16.0 [facility] Ketones Auto test strip (U) [Mass/Vol]on 12-27-2023 Ketones (U) [Mass/Vol] Negative NEGATIVE [facility] Laboratory - Chemistry and C hemistry - challengeon 12-27-2023 Albumin [Mass/Vol] 3.2 g/dL 3.4-5.0 [facility] Calcium [Mass/Vol] 8.4 mg/dL 8.5-10.1 [facility] Chloride [Moles/Vol] 108 mmol/L 98-107 [facility] CO2 [Moles/Vol] 24.3 mmol/L 21.0-32.0 [facility] Creatinine [Mass/Vol] 2.57 mg/dL 0.55-1.02 [facility] GFR/1.73 sq M.predicted MDRD (S/P/Bld) [Vol rate/Area] 22 mL/min/{1.73_m2} >=60 [facility] Glucose [Mass/Vol] 88 mg/dL 74-106 [facility] Magnesium [Mass/Vol] 2.1 mg/dL 1.8-2.4 [facility] Potassium [Moles/Vol] 4.4 mmol/L 3.5-5.1 [facility] Sodium [Moles/Vol] 141 mmol/L 136-145 [facility] Urate [Mass/Vol] 5.9 mg/dL 2.6-6.0 [facility] Urea nitrogen [Mass/Vol] 32.0 mg/dL 7.0-18.0 [facility] Urea nitrogen/Creatinine [Mass ratio] 12.5 mg/mg [facility] Laboratory - Urinalysison Protein (U) [Mass/Vol] 27.1 mg/dL <=11.9 [facility] Leukocytes [#/volume] correc dominick for nucleated erythrocytes in Blood by Automated counon 12-27-2023 WBC corrected for nucl RBC Auto (Bld) [#/Vol] 8.3 10 3/uL 4.0-11.0 [facility] MCH Auto (RBC) [Entitic mass ]on 12-27-2023 MCH (RBC) [Entitic mass] 31.5 pg 26.7-34.0 [facility] MCHC Auto (RBC) [Mass/Vol]on 12-27-2023 MCHC (RBC) [Mass/Vol] 32.1 g/dL 29.9-35.2 [facility] MCV Auto (RBC) [Entitic vol] on 12-27-2023 MCV (RBC) [Entitic vol] 98.3 fL 81.0-99.0 [facility] Mucus LM Ql (Urine sed)on Mucus Ql (Urine sed) NONE SEEN NONE SEEN [facility] No Panel Informationon 12-27 25-Hydroxy Vitamin D Total 42.6 ng/mL [facility] Comment on above: <20 ng/mL Vit D defi cient20-<30 ng/mL Vit D [id number] ng/mL Vit D sufficient>100 ng/mL Potential Toxicity Parathyroid Hormone (Intact) 78 pg/mL 15-65 [facility] Comment on above: Performed at: [facility] [place] [id number] Director: Elpidio Delgado PhD, Phone: [phone] Phosphorus Level 4.2 mg/dL 2.6-4.7 [facility] Urine Random Creatinine 59.98 mg/dL 20.0 0-300. 00 [facility] Platelet mean volume Auto (B ld) [Entitic vol]on 12-27-2023 Platelet mean volume (Bld) [Entitic vol] 11.3 fL 9.5-13.5 [facility] Platelets Auto (Bld) [#/Vol] on 12-27-2023 Platelets (Bld) [#/Vol] 195 10 3/uL 150-450 [facility] Protein Auto test strip (U) [Mass/Vol]on 12-27-2023 Protein (U) [Mass/Vol] Negative NEG/TRACE [facility] RBC Auto (Bld) [#/Vol]on RBC (Bld) [#/Vol] 4.09 10 6/uL 4.20-5.40 [facility] Serum or plasma anion gap de terminationon 12-27-2023 Anion gap [Moles/Vol] 13.1 mmol/L [facility] Specific gravity Auto test s trip (U) [Rel density]on 12-27-2023 Specific gravity (U) [Rel density] CLEAR CLEAR [facility] Urine bacteria detection by automated methodon 12-27-2023 Bacteria Auto Ql (U) TRACE #/HPF NONE SEEN [facility] Urine glucose measurement by test strip (mass/volume)on 12-27-2023 Glucose Test strip (U) [Mass/Vol] Negative NEGATIVE [facility] Urine hemoglobin detection b y automated test stripon 12-27-2023 Hemoglobin Auto test strip Ql (U) Negative NEGATIVE [facility] Urine nitrite detection by a utomated test stripon 12-27-2023 Nitrite Auto test strip Ql (U) Negative NEGATIVE [facility] Urine protein/creatinine rat ioon 12-27-2023 Protein/Creatinine (U) [Ratio] 0.45 [facility] Urine sediment crystal ident ification by light microscopyon 12-27-2023 Crystals LM Nom (Urine sed) None Seen #/HPF None Seen [facility] Urine sediment leukocyte cou nt by microscopy (number/high power field)on 12-27-2023 WBC LM.HPF (Urine sed) [#/Area] 0-2 #/HPF NONE SEEN [facility] Urobilinogen Auto test strip (U) [Mass/Vol]on 12-27-2023 Urobilinogen Qn (U) 0.2 {Marley'U}/dL 0.2-1.0 [facility] pH Auto test strip (U)on pH (U) 6.5 [pH] 5.0-9.0 [facility] US Heart TransthoracicOrdere d By: Russel Tolbert on 11-03-2023 Aortic Valve Area by Continuity of Peak Velocity 1.84 [facility] Work Phone: Aortic Valve Area by Continuity of VTI 1.69 [facility] Work Phone: AV mn grad 4.0 [facility] Work Phone: AV pk grad 8.8 [facility] Work Phone: AV pk nisha 1.48 [facility] Work Phone: LV A4C EF 65.5 [facility] Work Phone: LVIDd 4.10 [facility] Work Phone: LVOT diam 2.00 [facility] Work Phone: MV avg E/e' ratio 17.40 [facility] Work Phone: MV E/A ratio 1.11 [facility] Work Phone: RVSP 25.3 [facility] Work Phone: [facility] Work Phone: Heart Transthoracicon [facility] [address] [place] [address], [address], [place] [address] TRANSTHORACIC ECHOCARDIOGRAM REPORT Patient Name: HAILEE TRIVDEI Maida Physician: [id number] Tolbert MD Study Date: 11/02/2023 Ordering Provider: [id number] ELICIA RHODES MRN/PID: [id number] Fellow: Nurse: Date of /Age: 6 1940 / 83 years Sales Broker: Allyson Dobson RDCS, RVT Gender: F Additional [...] Obesity CPT Codes: Echo Complete w Full Doppler-[id number] Study Detail: The following Echo studies were [...] Decel Rate: 35 (more content not included)... SYNGO Russel Tolbert MD - 11/03/[address], [address] [place] [address] TRANSTHORACIC ECHOCARDIOGRAM REPORT Patient Name: HAILEE TRIVEDI Maida Physician: [id number] Russel Tolbert MD Study Date: 11/02/2023 Ordering Provider: [id number] ELICIA RHODES MRN/PID: [id number] Fellow: Nurse: Date of /Age: 6 1940 / 83 years Sales Broker: Allyson Dobson RDCS, RVT Gender: F Additional [...] Obesity CPT Codes: Echo Complete w Full Doppler-[id number] Study Detail: The following Echo studies were [...] mmHg PIEDV: 2.22 m/s PADP: 22.7 mmHg [id number] Russel Tolbert MD Electronically signed on 11/03/2023 at 11:22:05 AM Final [facility] Work Phone: TRANSTHORACIC ECHO (TTE) COM PLETEon 11-02-2023 TRANSTHORACIC ECHO (TTE) COMPLETE [address], [address] [place] [address] TRANSTHORACIC ECHOCARDIOGRAM REPORT Patient Name: HAILEE TRIVEDI Reading Physician: [id number] Russel Tolbert MD Study Date: 11/02/2023 Ordering Provider: [id number] ELICIA RHODES MRN/PID: [id number] Fellow: Nurse: Date of /Age: 6 1940 / 83 years Sales Broker: Allyson Dobson RDCS, RVT Gender: F Additional [...] Obesity CPT Codes: Echo Complete w Full Doppler-[id number] Study Detail: The following Echo studies were [...] mmHg PIEDV: 2.22 m/s PADP: 22.7 mmHg [id number] Russel Tolbert MD Electronically signed on 11/03/2023 at 11:22:[address] [facility] Alanine aminotransferase [En zymatic activity/volume] in Serum or PlasmaOrdered By: Claire Choi on 10-18-2023 ALT [Catalytic activity/Vol] 9 U/L [facility] Albumin [Mass/volume] in Ser um or PlasmaOrdered By: Claire Choi on 10-18-2023 Albumin [Mass/Vol] 3.6 g/dL 2.9-4.4 [facility] Albumin [Mass/volume] in Ser um or Plasma by Bromocresol green (BCG) dye binding methoOrdered By: Claire Choi on 10-18-2023 Albumin BCG dye [Mass/Vol] 3.8 g/dL 3.5-5.7 [facility] Alkaline phosphatase [Enzyma tic activity/volume] in Serum or PlasmaOrdered By: Claire Choi on 10-18-2023 ALP [Catalytic activity/Vol] 94 U/L 34-104 [facility] Aspartate aminotransferase [ Enzymatic activity/volume] in Serum or PlasmaOrdered By: Claire Choi on 10-18-2023 AST [Catalytic activity/Vol] 14 U/L 13-39 [facility] Basophils Auto (Bld) [#/Vol] Ordered By: Claire Choi on 10-18-2023 Basophils (Bld) [#/Vol] 0.1 10*3/uL 0.0-0.2 [facility] Basophils/100 WBC Auto (Bld) Ordered By: Claire Choi on 10-18-2023 Basophils/100 WBC (Bld) 1.2 % . [facility] Bilirubin.total [Mass/volume ] in Serum or PlasmaOrdered By: Claire Choi on 10-18-2023 Bilirubin [Mass/Vol] 0.4 mg/dL 0.3-1.0 [facility] Calcium [Mass/volume] in Ser um or PlasmaOrdered By: Claire Choi on 10-18-2023 Calcium [Mass/Vol] 8.7 mg/dL 8.6-10.3 [facility] Carbon dioxide, total [Moles /volume] in Serum or PlasmaOrdered By: Claire Choi on 10-18-2023 CO2 [Moles/Vol] 24.2 mmol/L 21.0-31.0 [facility] Chloride [Moles/volume] in S amanda or PlasmaOrdered By: Claire Choi on 10-18-2023 Chloride [Moles/Vol] 108 mmol/L 98-107 [facility] Creatinine [Mass/volume] in Serum or PlasmaOrdered By: Claire Choi on 10-18-2023 Creatinine [Mass/Vol] 2.36 mg/dL 0.60-1.20 [facility] Eosinophils Auto (Bld) [#/Vo l]Ordered By: Claire Choi on 10-18-2023 Eosinophils (Bld) [#/Vol] 0.1 10*3/uL 0.0-0.45 [facility] Eosinophils/100 WBC Auto (Bl d)Ordered By: Claire Choi on 10-18-2023 Eosinophils/100 WBC (Bld) 1.1 % . [facility] Erythrocyte distribution wid th Auto (RBC) [Ratio]Ordered By: Claire Choi on 10-18-2023 Erythrocyte distribution width (RBC) [Ratio] 14.6 % 11.9-15.3 [facility] Globulin Calc (S) [Mass/Vol] Ordered By: Claire Choi on 10-18-2023 Globulin (S) [Mass/Vol] 2.5 g/dL [facility] Glucose [Mass/volume] in Ser um or PlasmaOrdered By: Claire Choi on 10-18-2023 Glucose [Mass/Vol] 176 mg/dL 70-100 [facility] Comment on above: ADA recommended refe rence rangeRandom Glucose Reference Range is dependent on time and content of last meal. Glucose of more than 200 mg/dL in a nonstressed, ambulatory subject supports the diagnosis of Diabetes Mellitus. Hematocrit Auto (Bld) [Volum e fraction]Ordered By: Claire Choi on 10-18-2023 Hematocrit (Bld) [Volume fraction] 36.0 % 34.0-46.4 [facility] Hemoglobin [Mass/volume] in BloodOrdered By: Claire Choi on 10-18-2023 Hemoglobin (Bld) [Mass/Vol] 11.8 g/dL 11.8-15.4 [facility] IgA [Mass/volume] in Serum o r PlasmaOrdered By: Claire Choi on 10-18-2023 IgA [Mass/Vol] 162 mg/dL 64-422 [facility] IgG [Mass/volume] in Serum o r PlasmaOrdered By: Claire Choi on 10-18-2023 IgG [Mass/Vol] 708 mg/dL 586-1602 [facility] IgM [Mass/volume] in Serum o r PlasmaOrdered By: Claire Choi on 10-18-2023 IgM [Mass/Vol] 117 mg/dL 26-217 [facility] Comment on above: Performed at: [facility] [address] [id number] Director: Elpidio Delgado PhD, Phone: [phone] Immunoglobulin light chains. kappa.free [Mass/volume] in SerumOrdered By: Claire Choi on 10-18-2023 Immunoglobulin light chains.kappa.free (S) [Mass/Vol] 39.7 mg/L 3.3-19.4 [facility] Immunoglobulin light chains. kappa.free/Immunoglobulin light chains.lambda.free [MassOrdered By: Claire Choi on 10-18-2023 Immunoglobulin light chains.kappa.free/Immuno globulin light chains.lambda.free (S) [Mass ratio] 1.70 0.26-1.65 [facility] Comment on above: Performed at: [facility] [address] [id number] Director: Elpidio Delgado PhD, Phone: [phone] Immunoglobulin light chains. lambda.free [Mass/volume] in Serum or PlasmaOrdered By: Claire Choi on 10-18-2023 Immunoglobulin light chains.lambda.free [Mass/Vol] 23.4 mg/L 5.7-26.3 [facility] Leukocytes [#/volume] correc dominick for nucleated erythrocytes in Blood by Automated counOrdered By: Claire Choi on 10-18-2023 WBC corrected for nucl RBC Auto (Bld) [#/Vol] 8.2 10*3/uL 3.8-11.6 [facility] Lymphocytes Auto (Bld) [#/Vo l]Ordered By: Claire Choi on 10-18-2023 Lymphocytes (Bld) [#/Vol] 2.5 10*3/uL 1.00-4.8 [facility] Lymphocytes/100 WBC Auto (Bl d)Ordered By: Claire Choi on 10-18-2023 Lymphocytes/100 WBC (Bld) 30.2 % . [facility] MCH Auto (RBC) [Entitic mass ]Ordered By: Claire Choi on 10-18-2023 MCH (RBC) [Entitic mass] 31.8 pg 24.7-34.3 [facility] MCHC Auto (RBC) [Mass/Vol]Or dered By: Claire Choi on 10-18-2023 MCHC (RBC) [Mass/Vol] 32.8 g/dL 32.0-35.0 [facility] MCV Auto (RBC) [Entitic vol] Ordered By: Claire Choi on 10-18-2023 MCV (RBC) [Entitic vol] 96.9 fL 80-100 [facility] Monocytes Auto (Bld) [#/Vol] Ordered By: Claire Choi on 10-18-2023 Monocytes (Bld) [#/Vol] 0.6 10*3/uL 0.0-0.8 [facility] Monocytes/100 WBC Auto (Bld) Ordered By: Claire Choi on 10-18-2023 Monocytes/100 WBC (Bld) 7.6 % . [facility] Neutrophils Auto (Bld) [#/Vo l]Ordered By: Claire Choi on 10-18-2023 Neutrophils (Bld) [#/Vol] 4.9 10*3/uL 1.8-7.7 [facility] Neutrophils/100 WBC Auto (Bl d)Ordered By: Claire Choi on 10-18-2023 Neutrophils/100 WBC (Bld) 59.9 % . [facility] No Panel InformationOrdered By: Claire Choi on 10-18-2023 Estimated GFR (CKD-EPI) 20.198 mL/Min [facility] Creatinine Clearance (Chem 20.65 [facility] Protein Electrophoresis M-Krystian Not observed g/dL Not Observed [facility] Protein Electrophoresis Note See comment . [facility] Comment on above: Protein electrophore sis scan will follow via computer,mail, or golf club weighter delivery. Serum Immunofixation See comment . [facility] Comment on above: No monoclonality det ected. Nucleated erythrocytes [Pres ence] in Blood by Automated countOrdered By: Claire Choi on 10-18-2023 Nucleated RBC Auto Ql (Bld) 0.1 /100{WBC} 0-0.5 [facility] Platelet mean volume Auto (B ld) [Entitic vol]Ordered By: Claire Choi on 10-18-2023 Platelet mean volume (Bld) [Entitic vol] 9.8 fL 6.3-10.7 [facility] Platelets Auto (Bld) [#/Vol] Ordered By: Claire Choi on 10-18-2023 Platelets (Bld) [#/Vol] 199 10*3/uL 150-450 [facility] Potassium [Moles/volume] in Serum or PlasmaOrdered By: Claire Choi on 10-18-2023 Potassium [Moles/Vol] 4.9 mmol/L 3.5-5.1 [facility] Protein [Mass/volume] in Ser um or PlasmaOrdered By: Claire Choi on 10-18-2023 Protein [Mass/Vol] 6.3 g/dL 6.4-8.9 [facility] Protein [Mass/Vol] 6.4 g/dL 6.0-8.5 [facility] RBC Auto (Bld) [#/Vol]Ordere d By: Claire Choi on 10-18-2023 RBC (Bld) [#/Vol] 3.72 10*6/uL 3.60-5.00 [facility] Serum globulin measurement ( mass/volume)Ordered By: Claire Choi on 10-18-2023 Globulin (S) [Mass/Vol] 2.8 g/dL 2.2-3.9 [facility] Serum or plasma albumin/glob ulin mass ratioOrdered By: Claire Choi on 10-18-2023 Albumin/Globulin [Mass ratio] 1.5 {ratio} [facility] Albumin/Globulin [Mass ratio] 1.3 {ratio} 0.7-1.7 [facility] Serum or plasma alpha 1 glob ulin measurement by electrophoresis (mass/volume)Ordered By: Claire Choi on 10-18-2023 Alpha 1 globulin Elph [Mass/Vol] 0.2 g/dL 0.0-0.4 [facility] Serum or plasma alpha 2 glob ulin measurement by electrophoresis (mass/volume)Ordered By: Claire Choi on 10-18-2023 Alpha 2 globulin Elph [Mass/Vol] 0.9 g/dL 0.4-1.0 [facility] Serum or plasma anion gap de terminationOrdered By: Claire Choi on 10-18-2023 Anion gap [Moles/Vol] 10.7 mmol/L 6.0-15.0 [facility] Serum or plasma beta globuli n measurement by electrophoresis (mass/volume)Ordered By: Claire Choi on 10-18-2023 Beta globulin Elph [Mass/Vol] 0.9 g/dL 0.7-1.3 [facility] Serum or plasma gamma globul in measurement by electrophoresis (mass/volume)Ordered By: Claire Choi on 10-18-2023 Gamma globulin Elph [Mass/Vol] 0.8 g/dL 0.4-1.8 [facility] Sodium [Moles/volume] in Ser um or PlasmaOrdered By: Claire Choi on 10-18-2023 Sodium [Moles/Vol] 138 mmol/L 136-145 [facility] Urea nitrogen [Mass/volume] in Serum or PlasmaOrdered By: Claire Choi on 10-18-2023 Urea nitrogen [Mass/Vol] 35 mg/dL 7-25 [facility] WBC Auto (Bld) [#/Vol]Ordere d By: Claire Choi on 10-18-2023 WBC (Bld) [#/Vol] 8.2 10*3/uL 3.8-11.6 [facility] ECG 12 [place] 10-04-2023 Normal sinus rhythm [facility] Work Phone: Automated erythrocytes count in urine sediment (number/area)Ordered By: Claire Choi on 07-19-2023 RBC Auto (Urine sed) [#/Area] 0-1 [HPF] 0-4 [facility] Automated leukocytes count i n urine sediment (number/area)Ordered By: Claire Choi on 07-19-2023 WBC Auto (Urine sed) [#/Area] 0-1 [HPF] 0-4 [facility] Bilirubin Test strip Ql (U)O rdered By: Claire Choi on 07-19-2023 Bilirubin Ql (U) Negative Negative [facility] Color Auto (U)Ordered By: Reynaldo Choi on 07-19-2023 Color (U) Yellow Yellow [facility] Ketones Auto test strip (U) [Mass/Vol]Ordered By: Claire Choi on 07-19-2023 Ketones (U) [Mass/Vol] Negative Negative [facility] - UrinalysisOrder ed By: Claire Choi on 07-19-2023 Hyaline casts LM Ql (Urine sed) None seen [LPF] 0-8 [facility] Nitrite Test strip Ql (U)Ord ered By: Claire Choi on 07-19-2023 Nitrite Ql (U) Negative Negative [facility] Protein Auto test strip (U) [Mass/Vol]Ordered By: Claire Choi on 07-19-2023 Protein (U) [Mass/Vol] 100 mg/dL High Negative [facility] Specific gravity Auto test s trip (U) [Rel density]Ordered By: Claire Choi on 07-19-2023 Specific gravity (U) [Rel density] 1.018 1.001-1.03 0 [facility] Squamous epithelial cells de tection in urine sediment by light microscopyOrdered By: Claire Choi on 07-19-2023 Epithelial cells.squamous LM Ql (Urine sed) 0-1 [HPF] 0-2 [facility] Urine bacteria detection by automated methodOrdered By: Claire Choi on 07-19-2023 Bacteria Auto Ql (U) None seen None Seen [facility] Urine clarity by refractomet ry automatedOrdered By: Claire Choi on 07-19-2023 Clarity Refractometry automated (U) Clear Clear [facility] Urine glucose measurement by automated test strip (mass/volume)Ordered By: Claire Choi on 07-19-2023 Glucose Auto test strip (U) [Mass/Vol] Normal mg/dL Normal [facility] Urine hemoglobin detection b y automated test stripOrdered By: Claire Choi on 07-19-2023 Hemoglobin Auto test strip Ql (U) Negative Negative [facility] Urine leukocyte esterase det ection by automated test stripOrdered By: Claire Choi on 07-19-2023 Leukocyte esterase Auto test strip Ql (U) Negative Negative [facility] Urobilinogen Auto test strip (U) [Mass/Vol]Ordered By: Claire Choi on 07-19-2023 Urobilinogen (U) [Mass/Vol] Normal mg/dL Normal [facility] pH Auto test strip (U)Ordere d By: Claire Choi on 07-19-2023 pH (U) 6.0 [pH] 5.0-9.0 [facility] Alanine aminotransferase [En zymatic activity/volume] in Serum or PlasmaOrdered By: Misti Connolly on 07-12-2023 ALT [Catalytic activity/Vol] 12 U/L 7-52 [facility] Albumin [Mass/volume] in Ser um or PlasmaOrdered By: Misti Connolly on 07-12-2023 Albumin [Mass/Vol] 3.5 g/dL 2.9-4.4 [facility] Albumin [Mass/volume] in Ser um or Plasma by Bromocresol green (BCG) dye binding methoOrdered By: Misti Connolly on 07-12-2023 Albumin BCG dye [Mass/Vol] 3.6 g/dL 3.5-5.7 [facility] Alkaline phosphatase [Enzyma tic activity/volume] in Serum or PlasmaOrdered By: Misti Connolly on 07-12-2023 ALP [Catalytic activity/Vol] 83 U/L 34-104 [facility] Aspartate aminotransferase [ Enzymatic activity/volume] in Serum or PlasmaOrdered By: Misti Connolly on 07-12-2023 AST [Catalytic activity/Vol] 14 U/L 13-39 [facility] Basophils Auto (Bld) [#/Vol] Ordered By: Misti Connolly on 07-12-2023 Basophils (Bld) [#/Vol] 0.0 10*3/uL 0.0-0.2 [facility] Basophils/100 WBC Auto (Bld) Ordered By: Misti Connolly on 07-12-2023 Basophils/100 WBC (Bld) 0.4 % . [facility] Bilirubin.total [Mass/volume ] in Serum or PlasmaOrdered By: Misti Connolly on 07-12-2023 Bilirubin [Mass/Vol] 0.4 mg/dL 0.3-1.0 [facility] Calcium [Mass/volume] in Ser um or PlasmaOrdered By: Misti Connolly on 07-12-2023 Calcium [Mass/Vol] 8.5 mg/dL 8.6-10.3 [facility] Carbon dioxide, total [Moles /volume] in Serum or PlasmaOrdered By: Misti Connolly on 07-12-2023 CO2 [Moles/Vol] 22.7 mmol/L 21.0-31.0 [facility] Chloride [Moles/volume] in S amanda or PlasmaOrdered By: Misti Connolly on 07-12-2023 Chloride [Moles/Vol] 111 mmol/L 98-107 [facility] Creatinine [Mass/volume] in Serum or PlasmaOrdered By: Misti Connolly on 07-12-2023 Creatinine [Mass/Vol] 2.50 mg/dL 0.60-1.20 [facility] Eosinophils Auto (Bld) [#/Vo l]Ordered By: Misti Connolly on 07-12-2023 Eosinophils (Bld) [#/Vol] 0.1 10*3/uL 0.0-0.45 [facility] Eosinophils/100 WBC Auto (Bl d)Ordered By: Misti Connolly on 07-12-2023 Eosinophils/100 WBC (Bld) 1.1 % . [facility] Erythrocyte distribution wid th Auto (RBC) [Ratio]Ordered By: Misti Connolly on 07-12-2023 Erythrocyte distribution width (RBC) [Ratio] 13.8 % 11.9-15.3 [facility] Glucose [Mass/volume] in Ser um or PlasmaOrdered By: Misti Connolly on 07-12-2023 Glucose [Mass/Vol] 119 mg/dL 70-100 [facility] Comment on above: ADA recommended refe rence range Glucose mean value [Mass/vol ume] in Blood Estimated from glycated hemoglobinOrdered By: Misti Mohsen on 07-12-2023 Average glucose Estimated from glycated hemoglobin (Bld) [Mass/Vol] 174 mg/dL [facility] Average glucose Estimated from glycated hemoglobin (Bld) [Mass/Vol] Glucose mean value [Mass/volume] in Blood Estimated from glycated hemoglobin [facility] Hematocrit Auto (Bld) [Volum e fraction]Ordered By: Misti Mhosen on 07-12-2023 Hematocrit (Bld) [Volume fraction] 36.0 % 34.0-46.4 [facility] Hemoglobin [Mass/volume] in BloodOrdered By: Misti Mohsen on 07-12-2023 Hemoglobin (Bld) [Mass/Vol] 12.0 g/dL 11.8-15.4 [facility] Immunoglobulin light chains. kappa.free [Mass/volume] in SerumOrdered By: Misti Connolly on 07-12-2023 Immunoglobulin light chains.kappa.free (S) [Mass/Vol] 40.5 mg/L 3.3-19.4 [facility] Immunoglobulin light chains. kappa.free/Immunoglobulin light chains.lambda.free [MassOrdered By: Misti Connolly on 07-12-2023 Immunoglobulin light chains.kappa.free/Immuno globulin light chains.lambda.free (S) [Mass ratio] 1.75 0.26-1.65 [facility] Comment on above: Performed at: [address] [id number] Director: Elpidio Delgado PhD, Phone: [phone] Immunoglobulin light chains. lambda.free [Mass/volume] in Serum or PlasmaOrdered By: Misti Connolly on 07-12-2023 Immunoglobulin light chains.lambda.free [Mass/Vol] 23.2 mg/L 5.7-26.3 [facility] Laboratory - Hematology and Cell countsOrdered By: Misti Connolly on 07-12-2023 HbA1c (Bld) [Mass fraction] 7.7 % High 4.3-5.6 [facility] Comment on above: Increased risk for d iabetes: 5.7 - 6.4diabetes: >6.4glycemic control for adults with diabetes: <7.0 Leukocytes [#/volume] corre dominick for nucleated erythrocytes in Blood by Automated counOrdered By: Misti Connolly on 07-12-2023 WBC corrected for nucl RBC Auto (Bld) [#/Vol] 7.3 10*3/uL 3.8-11.6 [facility] Lymphocytes Auto (Bld) [#/Vo l]Ordered By: Misti Connolly on 07-12-2023 Lymphocytes (Bld) [#/Vol] 2.4 10*3/uL 1.00-4.8 [facility] Lymphocytes/100 WBC Auto (Bl d)Ordered By: Misti Connolly on 07-12-2023 Lymphocytes/100 WBC (Bld) 33.7 % . [facility] MCH Auto (RBC) [Entitic mass ]Ordered By: Misti Connolly on 07-12-2023 MCH (RBC) [Entitic mass] 31.5 pg 24.7-34.3 [facility] MCHC Auto (RBC) [Mass/Vol]Or dered By: Misti Connolly on 07-12-2023 MCHC (RBC) [Mass/Vol] 33.2 g/dL 32.0-35.0 [facility] MCV Auto (RBC) [Entitic vol] Ordered By: Misti Connolly on 07-12-2023 MCV (RBC) [Entitic vol] 95.0 fL 80-100 [facility] Monocytes Auto (Bld) [#/Vol] Ordered By: Misti Connolly on 07-12-2023 Monocytes (Bld) [#/Vol] 0.5 10*3/uL 0.0-0.8 [facility] Monocytes/100 WBC Auto (Bld) Ordered By: Misti Connolly on 07-12-2023 Monocytes/100 WBC (Bld) 6.2 % . [facility] Neutrophils Auto (Bld) [#/Vo l]Ordered By: Misti Connolly on 07-12-2023 Neutrophils (Bld) [#/Vol] 4.3 10*3/uL 1.8-7.7 [facility] Neutrophils/100 WBC Auto (Bl d)Ordered By: Misti Connolly on 07-12-2023 Neutrophils/100 WBC (Bld) 58.6 % . [facility] No Panel InformationOrdered By: Misti Connolly on 07-12-2023 Estimated GFR (CKD-EPI) 18.848 mL/Min [facility] Pharmacy Creatinine Clearance (Chem 19.74 [facility] Protein Electrophoresis M-Krystian Not observed g/dL Not Observed [facility] Protein Electrophoresis Note See comment . [facility] Comment on above: Protein electrophore sis scan will follow via computer,mail, or golf club weighter delivery.Performed at: [facility] [id number] Director: Elpidio Delgado PhD, Phone: [phone] 7.7 % High 4.3-5.6 [facility] Nucleated erythrocytes [Pres ence] in Blood by Automated countOrdered By: Misti Connolly on 07-12-2023 Nucleated RBC Auto Ql (Bld) 0.1 /100{WBC} 0-0.5 [facility] Platelet mean volume Auto (B ld) [Entitic vol]Ordered By: Misti Connolly on 07-12-2023 Platelet mean volume (Bld) [Entitic vol] 9.5 fL 6.3-10.7 [facility] Platelets Auto (Bld) [#/Vol] Ordered By: Misti Connolly on 07-12-2023 Platelets (Bld) [#/Vol] 198 10*3/uL 150-450 [facility] Potassium [Moles/volume] in Serum or PlasmaOrdered By: Misti Connolly on 07-12-2023 Potassium [Moles/Vol] 4.5 mmol/L 3.5-5.1 [facility] Protein [Mass/volume] in Ser um or PlasmaOrdered By: Misti Connolly on 07-12-2023 Protein [Mass/Vol] 6.3 g/dL 6.4-8.9 [facility] Protein [Mass/Vol] 6.2 g/dL 6.0-8.5 [facility] RBC Auto (Bld) [#/Vol]Ordere d By: Misti Connolly on 07-12-2023 RBC (Bld) [#/Vol] 3.79 10*6/uL 3.60-5.00 [facility] Serum globulin measurement b y calculation (mass/volume)Ordered By: iMsti Connolly on 07-12-2023 Globulin (S) [Mass/Vol] 2.7 g/dL 2.2-3.9 [facility] Serum or plasma albumin/glob ulin mass ratioOrdered By: Misti Connolly on 07-12-2023 Albumin/Globulin [Mass ratio] 1.3 {ratio} 0.7-1.7 [facility] Serum or plasma alpha 1 glob ulin measurement by electrophoresis (mass/volume)Ordered By: Misti Connolly on 07-12-2023 Alpha 1 globulin Elph [Mass/Vol] 0.1 g/dL 0.0-0.4 [facility] Serum or plasma alpha 2 glob ulin measurement by electrophoresis (mass/volume)Ordered By: Misti Connolly on 07-12-2023 Alpha 2 globulin Elph [Mass/Vol] 1.0 g/dL 0.4-1.0 [facility] Serum or plasma anion gap de terminationOrdered By: Misti Connolly on 07-12-2023 Anion gap [Moles/Vol] 10.8 mmol/L 6.0-15.0 [facility] Serum or plasma beta globuli n measurement by electrophoresis (mass/volume)Ordered By: Misti Connolly on 07-12-2023 Beta globulin Elph [Mass/Vol] 0.9 g/dL 0.7-1.3 [facility] Serum or plasma gamma globul in measurement by electrophoresis (mass/volume)Ordered By: Misti Connolly on 07-12-2023 Gamma globulin Elph [Mass/Vol] 0.6 g/dL 0.4-1.8 [facility] Sodium [Moles/volume] in Ser um or PlasmaOrdered By: Misti Connolly on 07-12-2023 Sodium [Moles/Vol] 140 mmol/L 136-145 [facility] Urea nitrogen [Mass/volume] in Serum or PlasmaOrdered By: Misti Connolly on 07-12-2023 Urea nitrogen [Mass/Vol] 33 mg/dL 7-25 [facility] WBC Auto (Bld) [#/Vol]Ordere d By: Misti Connolly on 07-12-2023 WBC (Bld) [#/Vol] 7.3 10*3/uL 3.8-11.6 [facility] Office Visit (Cardiology)on 03-23-2023 Follow-up visit Diagnoses/Problems [...] Weight Tips; Status:Complete - Retrospective Authorization; Done: [id number] Some eating tips that can help you lose weight.; Status:Complete - Retrospective Authorization; Done: [id number] SocHx: Never a smoker Tobacco Use Screening; Status:Complete; Done: [id number] Patient Instructions Please bring all medicines, vitamins, [...] recurrence. She did have noninvasive assessment at [facility], which was negative. Couple of years ago. [...] Vitals Vital (more content not included)... Normal [employer] Tobacco Screening.on 023 Adult depression screening assessment No [facility] [employer] DO Work Phone: Fall risk assessment a) No falls within the last year [facility] [employer] DO Work Phone: Tobacco use status [facility] b) No [facility] [employer] DO Work Phone: LIPID PROFILEon 02-21-2023 CHOL-HDL RATIO NORM SEE BELOW Normal [facility] Comment on above: Result Comment: 3.3 - 4.4 LOW RISK 4.4 - 7.1 AVERAGE RISK 7.1 - 11.0 MODERATE RISK >11.0 HIGH RISK Performed By: #### H H #### [facility] [address] [address] [address] Richa Cheema Cholesterol [Mass/Vol] 173 mg/dL Normal <=200 [facility] Comment on above: Performed By: #### H H #### [facility] [address] [address] [address] Richa Cheema Cholesterol in HDL [Mass/Vol] 63 mg/dL Critically high 40-60 [facility] Comment on above: Performed By: #### H H #### [facility] [address] [address] [address] Richa Cheema Cholesterol in LDL [Mass/Vol] 75.6 mg/dL Normal [facility] Comment on above: Performed By: #### H H #### [facility] [address] [address] [address] Richa Cheema Cholesterol.total/Choles terol in HDL [Mass ratio] 2.7 {ratio} Normal [facility] Comment on above: Performed By: #### H H #### [facility] [address] [address] [address] Richa Cheema HDL NORMAL > or = 60 mg/dl - LO W CARDIOVASCULAR RISK <40 mg/dl - HIGH CARDIOVASCULAR RISK Normal [facility] Comment on above: Performed By: #### H H #### [facility] [address] [address] [address] Richa Cheema LDL CALC NORMAL SEE BELOW Normal [facility] Comment on above: Result Comment: <100 mg/dl OPTIMAL 100 - 129 mg/dl NEAR OR ABOVE OPTIMAL 130 - 159 mg/dl BORDERLINE HIGH 160 - 189 mg/dl HIGH >190 mg/dl VERY HIGH Performed By: #### H H #### [facility] [address] [place] [address] Dr. Richa Cheema Triglyceride [Mass/Vol] 172 mg/dL Critically high <=150 [facility] Comment on above: Performed By: #### H H #### [facility] [address] [place] [address] Dr. Richa Cheema VLDL CALC 34.4 mg/dL Normal [facility] Comment on above: Performed By: #### H H #### [facility] [address] [place] [address] Dr. Richa Cheema PROF CHEM 8 (BAS METB)on Anion gap [Moles/Vol] 13.2 mmol/L Normal [facility] Comment on above: Performed By: #### H H #### [facility] [address] [place] [address] Dr. Richa Cheema Calcium [Mass/Vol] 8.8 mg/dL Normal 8.5-10.1 [facility] Comment on above: Performed By: #### H H #### [facility] [address] [place] [address] Dr. Richa Cheema Chloride [Moles/Vol] 108 mmol/L Critically high 98-107 [facility] Comment on above: Performed By: #### H H #### [facility] [address] [address] [address] Richa Cheema CO2 [Moles/Vol] 25.7 mmol/L Normal 21.0-32.0 [facility] Comment on above: Performed By: #### H H #### [facility] [address] [address] [address] Richa Cheema Creatinine [Mass/Vol] 2.30 mg/dL Critically high 0.55-1.02 [facility] Comment on above: Performed By: #### H H #### [facility] [address] [place] [address] Dr. Richa Cheema EGFR-AF NICARAGUAN 25 mL/min/1.73m2 Critically low >=60 [facility] Comment on above: Performed By: #### H H #### [facility] [address] [place] [address] Dr. Richa Cheema EGFR-NON AF NICARAGUAN 20 mL/min/1.73m2 Critically low >=60 [facility] Comment on above: Performed By: #### H H #### [facility] [address] [place] [address] Dr. Richa Cheema Glucose [Mass/Vol] 139 mg/dL Critically high 74-106 [facility] Comment on above: Performed By: #### H H #### [facility] [address] [address] [address] Richa Cheema Potassium [Moles/Vol] 4.9 mmol/L Normal 3.5-5.1 [facility] Comment on above: Performed By: #### H H #### [facility] [address] [place] [address] Dr. Richa Cheema Sodium [Moles/Vol] 142 mmol/L Normal 136-145 [facility] Comment on above: Performed By: #### H H #### [facility] [address] [place] [address] Dr. Richa Cheema Urea nitrogen [Mass/Vol] 25.0 mg/dL Critically high 7.0-18 .0 [facility] Comment on above: Performed By: #### H H #### [facility] [address] [place] [address] Dr. Richa Cheema Urea nitrogen/Creatinine [Mass ratio] 10.9 mg/mg Normal [facility] Comment on above: Performed By: #### H H #### [facility] [address] [place] [address] Dr. Richa JUARESOTon 02-21-2023 AST [Catalytic activity/Vol] 18 U/L Normal 15-37 [facility] Comment on above: Performed By: #### H H #### [facility] [address] [place] [address] Dr. [facility]20[facility] ALT [Catalytic activity/Vol] 18 U/L Normal 14-59 [facility] Comment on above: Performed By: #### H H #### [facility] [address] [place] [address] Dr. Richa Cheema XR BONE SURVEYon 01-07-2023 XR BONE SURVEY [...] by: DIANN IBANEZ Date: 2023-01-07 07:54 Normal [facility] XR KUB 1 VIEWon 01-06-2023 [...] by: DIANN IBANEZ Date: 2023-01-06 18:33 Normal [facility] Albumin [Mass/volume] in Ser um or PlasmaOrdered By: Claire Choi on 01-04-2023 Albumin [Mass/Vol] 3.6 g/dL 3.2-5.5 [facility] Alkaline phosphatase [Enzyma tic activity/volume] in Serum or PlasmaOrdered By: Claire Choi on 01-04-2023 ALP [Catalytic activity/Vol] 99 U/L 32-92 [facility] Aspartate aminotransferase [ Enzymatic activity/volume] in Serum or PlasmaOrdered By: Claire Choi on 01-04-2023 AST [Catalytic activity/Vol] 14 U/L 10-42 [facility] Basophils Auto (Bld) [#/Vol] Ordered By: Claire Choi on 01-04-2023 Basophils (Bld) [#/Vol] 0.1 10*3/uL 0.0-0.2 [facility] Basophils/100 WBC Auto (Bld) Ordered By: Claire Choi on 01-04-2023 Basophils/100 WBC (Bld) 0.8 % . [facility] Bilirubin.total [Mass/volume ] in Serum or PlasmaOrdered By: Claire Choi on 01-04-2023 Bilirubin [Mass/Vol] 0.6 mg/dL 0.3-1.2 [facility] Calcium [Mass/volume] in Ser um or PlasmaOrdered By: Claire Choi on 01-04-2023 Calcium [Mass/Vol] 8.7 mg/dL 8.2-10.2 [facility] Carbon dioxide, total [Moles /volume] in Serum or PlasmaOrdered By: Claire Choi on 01-04-2023 CO2 [Moles/Vol] 21.9 mmol/L 22.0-30.0 [facility] Chloride [Moles/volume] in S amanda or PlasmaOrdered By: Claire Choi on 01-04-2023 Chloride [Moles/Vol] 108 mmol/L 95-114 [facility] Creatinine and Glomerular fi ltration rate.predicted panel (S/P/Bld)Ordered By: Claire Choi on 01-04-2023 Creatinine [Mass/Vol] 2.48 mg/dL 0.44-1.03 [facility] Eosinophils Auto (Bld) [#/Vo l]Ordered By: Claire Choi on 01-04-2023 Eosinophils (Bld) [#/Vol] 0.2 10*3/uL 0.0-0.45 [facility] Eosinophils/100 WBC Auto (Bl d)Ordered By: Claire Choi on 01-04-2023 Eosinophils/100 WBC (Bld) 2.3 % . [facility] Erythrocyte distribution wid th Auto (RBC) [Ratio]Ordered By: Claire Choi on 01-04-2023 Erythrocyte distribution width (RBC) [Ratio] 13.2 % 11.9-15.3 [facility] Estimated glomerular filtrat ion rate (GFR) non- AmericanOrdered By: Claire Choi on 01-04-2023 GFR/1.73 sq M.predicted among non-blacks MDRD (S/P/Bld) [Vol rate/Area] 19 mL/Min [facility] GFR/1.73 sq M.predicted among non-blacks MDRD (S/P/Bld) [Vol rate/Area] Estimated glomerular filtration rate (GFR) non- [facility] Globulin Calc (S) [Mass/Vol] Ordered By: Claire Choi on 01-04-2023 Globulin (S) [Mass/Vol] 2.5 g/dL [facility] Glucose [Mass/volume] in Ser um or PlasmaOrdered By: Claire Choi on 01-04-2023 Glucose [Mass/Vol] 144 mg/dL 70-100 [facility] Comment on above: ADA recommended refe rence rangeRandom Glucose Reference Range is dependent on time and content of last meal. Glucose of more than 200 mg/dL in a nonstressed, ambulatory subject supports the diagnosis of Diabetes Mellitus. Hematocrit Auto (Bld) [Volum e fraction]Ordered By: Claire Choi on 01-04-2023 Hematocrit (Bld) [Volume fraction] 38.4 % 34.0-46.4 [facility] Hemoglobin [Mass/volume] in BloodOrdered By: Claire Choi on 01-04-2023 Hemoglobin (Bld) [Mass/Vol] 12.7 g/dL 11.8-15.4 [facility] Immunoglobulin light chains. kappa.free [Mass/volume] in SerumOrdered By: Claire Choi on 01-04-2023 Immunoglobulin light chains.kappa.free (S) [Mass/Vol] 26.9 mg/L 3.3-19.4 [facility] Immunoglobulin light chains. kappa.free/Immunoglobulin light chains.lambda.free [MassOrdered By: Claire Choi on 01-04-2023 Immunoglobulin light chains.kappa.free/Immuno globulin light chains.lambda.free (S) [Mass ratio] 2.24 0.26-1.65 [facility] Comment on above: Performed at: - [address] [id number] Director: Elpidio Delgado PhD, Phone: [phone] Immunoglobulin light chains. lambda.free [Mass/volume] in Serum or PlasmaOrdered By: Claire Choi on 01-04-2023 Immunoglobulin light chains.lambda.free [Mass/Vol] 12.0 mg/L 5.7-26.3 [facility] Leukocytes [#/volume] correc dominick for nucleated erythrocytes in Blood by Automated counOrdered By: Claire Choi on 01-04-2023 WBC corrected for nucl RBC Auto (Bld) [#/Vol] 8.9 10*3/uL 3.8-11.6 [facility] Lymphocytes Auto (Bld) [#/Vo l]Ordered By: Claire Choi on 01-04-2023 Lymphocytes (Bld) [#/Vol] 3.0 10*3/uL 1.00-4.8 [facility] Lymphocytes/100 WBC Auto (Bl d)Ordered By: Claire Choi on 01-04-2023 Lymphocytes/100 WBC (Bld) 34.1 % . [facility] MCH Auto (RBC) [Entitic mass ]Ordered By: Claire Choi on 01-04-2023 MCH (RBC) [Entitic mass] 31.4 pg 24.7-34.3 [facility] MCHC Auto (RBC) [Mass/Vol]Or dered By: Claire Choi on 01-04-2023 MCHC (RBC) [Mass/Vol] 33.0 g/dL 32.0-35.0 [facility] MCV Auto (RBC) [Entitic vol] Ordered By: Claire Choi on 01-04-2023 MCV (RBC) [Entitic vol] 95.1 fL 80-100 [facility] Monocytes Auto (Bld) [#/Vol] Ordered By: Claire Choi on 01-04-2023 Monocytes (Bld) [#/Vol] 0.7 10*3/uL 0.0-0.8 [facility] Monocytes/100 WBC Auto (Bld) Ordered By: Claire Choi on 01-04-2023 Monocytes/100 WBC (Bld) 8.0 % . [facility] Neutrophils Auto (Bld) [#/Vo l]Ordered By: Claire Choi on 01-04-2023 Neutrophils (Bld) [#/Vol] 4.9 10*3/uL 1.8-7.7 [facility] Neutrophils/100 WBC Auto (Bl d)Ordered By: Claire Choi on 01-04-2023 Neutrophils/100 WBC (Bld) 54.8 % . [facility] No Panel InformationOrdered By: Claire Choi on 01-04-2023 Estimated GFR () 23 mL/Min [facility] Comment on above: GFR estimated refere nce range: According to KDOQI guidelines, <60 ml/min/1.73m2 is sufficient to diagnose a patient with chronic kidney disease. Pharmacy Creatinine Clearance (Chem 19.82 [facility] 23 mL/Min [facility] Nucleated erythrocytes [Pres ence] in Blood by Automated countOrdered By: Claire Choi on 01-04-2023 Nucleated RBC Auto Ql (Bld) 0.0 /100{WBC} 0-0.5 [facility] Platelet mean volume Auto (B ld) [Entitic vol]Ordered By: Claire Choi on 01-04-2023 Platelet mean volume (Bld) [Entitic vol] 9.6 fL 6.3-10.7 [facility] Platelets Auto (Bld) [#/Vol] Ordered By: Claire Choi on 01-04-2023 Platelets (Bld) [#/Vol] 210 10*3/uL 150-450 [facility] Potassium [Moles/volume] in Serum or PlasmaOrdered By: Claire Choi on 01-04-2023 Potassium [Moles/Vol] 4.3 mmol/L 3.5-5.1 [facility] Protein [Mass/volume] in Ser um or PlasmaOrdered By: Claire Choi on 01-04-2023 Protein [Mass/Vol] 6.1 g/dL 6.1-7.9 [facility] RBC Auto (Bld) [#/Vol]Ordere d By: Claire Choi on 01-04-2023 RBC (Bld) [#/Vol] 4.04 10*6/uL 3.60-5.00 [facility] Serum or plasma alanine genao otransferase measurement without P-5'-P (enzymatic activiOrdered By: Claire Choi on 01-04-2023 ALT No additional P-5'-P [Catalytic activity/Vol] 14 U/L 1060 [facility] Serum or plasma albumin/glob ulin mass ratioOrdered By: Claire Choi on 01-04-2023 Albumin/Globulin [Mass ratio] 1.4 {ratio} [facility] Serum or plasma anion gap de terminationOrdered By: Claire Choi on 01-04-2023 Anion gap [Moles/Vol] 11.4 mmol/L 6.0-15.0 [facility] Sodium [Moles/volume] in Ser um or PlasmaOrdered By: Claire Choi on 01-04-2023 Sodium [Moles/Vol] 137 mmol/L 136-146 [facility] Urea nitrogen [Mass/volume] in Serum or PlasmaOrdered By: Claire Choi on 01-04-2023 Urea nitrogen [Mass/Vol] 33 mg/dL 08-06 [facility] WBC Auto (Bld) [#/Vol]Ordere d By: Claire Choi on 01-04-2023 WBC (Bld) [#/Vol] 8.9 10*3/uL 3.8-11.6 [facility] PTH INTACTon 12-15-2022 PTH, Intact 79 pg/mL Critically high 15-65 [facility] Comment on above: Performed By: #### M G, RENAL, URIC #### [facility] [address] [place], [place] [address] Dr. Richa Cheema HEMOGRAM AND PLATELon 2022 Hematocrit (Bld) [Volume fraction] 40.4 % Normal 36.0-48.0 [facility] Comment on above: Performed By: #### H H #### [facility] [address] [place] [address] Dr. Richa Cheema Hemoglobin (Bld) [Mass/Vol] 13.5 g/dL Normal 12.0-16.0 [facility] Comment on above: Performed By: #### H H #### [facility] [address] [place] [address] Dr. Richa Cheema MCH (RBC) [Entitic mass] 31.7 pg Normal 26.7-34.0 [facility] Comment on above: Performed By: #### H H #### [facility] [address] [place] [address] Dr. Richa Cheema MCHC (RBC) [Mass/Vol] 33.4 g/dL Normal 29.9-35.2 [facility] Comment on above: Performed By: #### H H #### [facility] [address] [place] [address] Dr. Richa Cheema MCV (RBC) [Entitic vol] 94.8 fL Normal 81.0-99.0 [facility] Comment on above: Performed By: #### H H #### [facility] [address] [place] [address] Dr. Richa Cheema PLT 218 103/ul Normal 150-450 [facility] Comment on above: Performed By: #### H H #### [facility] [address] [place] [address] Dr. Richa Cheema RBC 4.26 106/ul Normal 4.20-5.40 [facility] Comment on above: Performed By: #### H H #### [facility] [address] [place] [address] Dr. Richa Cheema WBC 8.7 103/ul Normal 4.0-11.0 [facility] Comment on above: Performed By: #### H H #### [facility] [facility] [address] [place] [address] Dr. Richa Cheema MAGNESIUMon 12-14-2022 Magnesium [Mass/Vol] 2.0 mg/dL Normal 1.8-2.4 [facility] Comment on above: Performed By: #### M G, RENAL, URIC #### [facility] [address] [address] [address] Richa Cheema RENAL FUNCTION PANELon 12-14 Albumin [Mass/Vol] 3.4 g/dL Normal 3.4-5.0 [facility] Comment on above: Performed By: #### M G, RENAL, URIC #### [facility] [address] [place] [address] Dr. Richa Cheema Calcium [Mass/Vol] 8.6 mg/dL Normal 8.5-10.1 [facility] Comment on above: Performed By: #### M G, RENAL, URIC #### [facility] [address] [place] [address] Dr. Richa Cheema Chloride [Moles/Vol] 104 mmol/L Normal 98-107 [facility] Comment on above: Performed By: #### M G, RENAL, URIC #### [facility] [address] [place] [address] Dr. Richa Cheema CO2 [Moles/Vol] 29.7 mmol/L Normal 21.0-32.0 [facility] Comment on above: Performed By: #### M G, RENAL, URIC #### [facility] [address] [address] [address] Richa Cheema Creatinine [Mass/Vol] 2.29 mg/dL Critically high 0.55-1.02 [facility] Comment on above: Performed By: #### M G, RENAL, URIC #### [facility] [address] [place] [address] Dr. Richa Cheema EGFR-AF NICARAGUAN 25 mL/min/1.73m2 Critically low >=60 [facility] Comment on above: Performed By: #### M G, RENAL, URIC #### [facility] [address] [place] [address] Dr. Richa Cheema EGFR-NON AF NICARAGUAN 21 mL/min/1.73m2 Critically low >=60 [facility] Comment on above: Performed By: #### M G, RENAL, URIC #### [facility] [address] [address] [address] Richa Cheema Glucose [Mass/Vol] 133 mg/dL Critically high 74-106 [facility] Comment on above: Performed By: #### M G, RENAL, URIC #### [facility] [address] [place] [address] Dr. Richa Cheema Phosphate [Mass/Vol] 3.9 mg/dL Normal 2.6-4.7 [facility] Comment on above: Performed By: #### M G, RENAL, URIC #### [facility] [address] [place] [address] Dr. Richa Cheema Potassium [Moles/Vol] 4.4 mmol/L Normal 3.5-5.1 [facility] Comment on above: Performed By: #### M G, RENAL, URIC #### [facility] [address] [place] [address] Dr. Richa Cheema Sodium [Moles/Vol] 141 mmol/L Normal 136-145 [facility] Comment on above: Performed By: #### M G, RENAL, URIC #### [facility] [address] [place] [address] Dr. Richa Cheema Urea nitrogen [Mass/Vol] 30.0 mg/dL Critically high 7.0-18 .0 [facility] Comment on above: Performed By: #### M G, RENAL, URIC #### [facility] [address] [place] [address] Dr. Richa Cheema UA RANDOM W/MICROSCOPICon BACTERIA NONE SEEN Normal NONE SEEN [facility] Comment on above: Performed By: #### U AMIC #### [facility] [address] [place] [address] Dr. Richa Cheema Bilirubin Ql (U) Negative Normal NEGATIVE [facility] Comment on above: Performed By: #### U AMIC #### [facility] [address] [place] [address] Dr. Richa Cheema CAST NONE SEEN Normal NONE SEEN [facility] Comment on above: Performed By: #### U AMIC #### [facility] [address] [place] [address] Dr. Richa Cheema Clarity (U) CLEAR Normal CLEAR [facility] Comment on above: Performed By: #### U AMIC #### [facility] [address] [address] [address] Richa Cheema Color (U) LT. YELLOW Normal YELLOW [facility] Comment on above: Performed By: #### U AMIC #### [facility] [address] [address] [address] Richa Cheema Crystals LM Nom (Urine sed) NONE SEEN Normal NONE SEEN [facility] Comment on above: Performed By: #### U AMIC #### [facility] [address] [address] [address] Richa Cheema Epithelial cells LM Ql (Urine sed) RARE Normal NONE SEEN /RARE [facility] Comment on above: Performed By: #### U AMIC #### [facility] [address] [place] [address] Dr. Richa Cheema Glucose Ql (U) Negative Normal NEGATIVE [facility] Comment on above: Performed By: #### U AMIC #### [facility] [address] [address] [address] Richa Cheema Hemoglobin Ql (U) TRACE-INTACT Abnormal NEGATIVE [facility] Comment on above: Performed By: #### U AMIC #### [facility] [address] [address] [address] Richa Cheema Ketones Ql (U) Negative Normal NEGATIVE [facility] Comment on above: Performed By: #### U AMIC #### [facility] [address] [address] [address] Richa Cheema LEUKOCYTES Negative Normal NEGATIVE [facility] Comment on above: Performed By: #### U AMIC #### [facility] [address] [address] [address] Richa Cheema MUCOUS NONE SEEN Normal NONE SEEN [facility] Comment on above: Performed By: #### U AMIC #### [facility] [address] [place] [address] Dr. Richa Cheema Nitrite Ql (U) Negative Normal NEGATIVE [facility] Comment on above: Performed By: #### U AMIC #### [facility] [address] [place] [address] Dr. Richa Cheema pH (U) 8.0 [pH] Normal 5-9 [facility] Comment on above: Performed By: #### U AMIC #### [facility] [address] [place] [address] Dr. Richa Cheema RBC 0-2 Normal 0-2 [facility] Comment on above: Performed By: #### U AMIC #### [facility] [address] [place] [address] Dr. Richa Cheema SPEC GRAVITY 1.015 Normal 1.005-<=1. 025 [facility] Comment on above: Performed By: #### U AMIC #### [facility] [address] [place] [address] Dr. Richa Cheema UA PROTEIN 100 mg/dl Abnormal NEGATIVE/ TRACE [facility] Comment on above: Performed By: #### U AMIC #### [facility] [address] [place] [address] Dr. Richa Cheema Urobilinogen Qn (U) 0.2 {Marley'U}/dL Normal 0.2 - 1. 0 [facility] Comment on above: Performed By: #### U AMIC #### [facility] [address] [place] [address] Dr. Richa Cheema WBC NONE SEEN Normal NONE SEEN [facility] Comment on above: Performed By: #### U AMIC #### [facility] [address] [place] [address] Dr. Richa Cheema URIC ACID SERUMon 12-14-2022 Urate [Mass/Vol] 5.3 mg/dL Normal 2.6-6.0 [facility] Comment on above: Performed By: #### M G, RENAL, URIC #### [facility] [address] [place] [address] Dr. Richa Cheema URINE T PROTEIN CREAT RATIOo n 12-14-2022 Protein (U) [Mass/Vol] 113.5 mg/dL Critically high <=12.0 [facility] Comment on above: Performed By: #### M G, RENAL, URIC #### [facility] [address] [address] [address] Richa Cheema UR PROT CREAT RAT 1.55 Normal [facility] Comment on above: Performed By: #### M G, RENAL, URIC #### [facility] [address] [address] [address] Richa Cheema URINE CREAT 73.37 mg/dL Normal 20.00-300. 00 [facility] Comment on above: Performed By: #### M G, RENAL, URIC #### [facility] [address] [address] [address] Richa Cheema VITAMIN D 25 OHon 12-14-2022 VIT D 25-OH 42.8 ng/mL Normal [facility] Comment on above: Performed By: #### H H #### [facility] [address] [place] [address] Dr. Richa Cheema VIT D RANGES SEE BELOW Normal [facility] Comment on above: Result Comment: <20 ng/mL Vit D deficient 20 - <30 ng/mL Vit D insufficient 30 - 100 ng/mL Vit D sufficient >100 ng/mL Potential Toxicity Performed By: #### H H #### [facility] [address] [place] [address] Dr. Richa Cheema Albumin [Mass/volume] in Ser um or PlasmaOrdered By: Claire Choi on 10-04-2022 Albumin [Mass/Vol] 3.6 g/dL 2.9-4.4 [facility] - Hematology and Cell countsOrdered By: Claire Choi on 10-04-2022 Nucleated RBC/100 WBC (Bld) [Ratio] 0.1 % 0-0.5 [facility] No Panel InformationOrdered By: Claire Choi on 10-04-2022 Protein Electrophoresis M-Krystian Not observed g/dL Not Observed [facility] Protein Electrophoresis Note See comment . [facility] Comment on above: Protein electrophore sis scan will follow via computer,mail, or golf club weighter delivery.Performed at: [address] [id number] Director: Elpidio Delgado PhD, Phone: [phone] 0.1 % 0-0.5 [facility] Protein [Mass/volume] in Ser um or PlasmaOrdered By: Claire Choi on 10-04-2022 Protein [Mass/Vol] 6.1 g/dL 6.0-8.5 [facility] Serum globulin measurement ( mass/volume)Ordered By: Claire Choi on 10-04-2022 Globulin (S) [Mass/Vol] 2.5 g/dL 2.2-3.9 [facility] Serum or plasma albumin/glob ulin mass ratioOrdered By: Claire Choi on 10-04-2022 Albumin/Globulin [Mass ratio] 1.4 {ratio} 0.7-1.7 [facility] Serum or plasma alpha 1 glob ulin measurement by electrophoresis (mass/volume)Ordered By: Claire Choi on 10-04-2022 Alpha 1 globulin Elph [Mass/Vol] 0.2 g/dL 0.0-0.4 [facility] Serum or plasma alpha 2 glob ulin measurement by electrophoresis (mass/volume)Ordered By: Claire Choi on 10-04-2022 Alpha 2 globulin Elph [Mass/Vol] 0.9 g/dL 0.4-1.0 [facility] Serum or plasma beta globuli n measurement by electrophoresis (mass/volume)Ordered By: Claire Choi on 10-04-2022 Beta globulin Elph [Mass/Vol] 0.8 g/dL 0.7-1.3 [facility] Serum or plasma gamma globul in measurement by electrophoresis (mass/volume)Ordered By: Claire Choi on 10-04-2022 Gamma globulin Elph [Mass/Vol] 0.6 g/dL 0.4-1.8 [facility] Albumin [Mass/volume] in Ser um or PlasmaOrdered By: Claire Choi on 07-13-2022 Albumin [Mass/Vol] 3.4 g/dL 2.9-4.4 [facility] Immunoglobulin light chains. kappa.free [Mass/volume] in SerumOrdered By: Claire Choi on 07-13-2022 Immunoglobulin light chains.kappa.free (S) [Mass/Vol] 21.9 mg/L 3.3-19.4 [facility] Immunoglobulin light chains. kappa.free/Immunoglobulin light chains.lambda.free [MassOrdered By: Claire Choi on 07-13-2022 Immunoglobulin light chains.kappa.free/Immuno globulin light chains.lambda.free (S) [Mass ratio] 1.87 0.26-1.65 [facility] Comment on above: Performed at: - [facility] [address] [id number] [employer] Unloader: Elpidio Delgado PhD, Phone: [phone] Immunoglobulin light chains. lambda.free [Mass/volume] in Serum or PlasmaOrdered By: Claire Choi on 07-13-2022 Immunoglobulin light chains.lambda.free [Mass/Vol] 11.7 mg/L 5.7-26.3 [facility] - Chemistry and C hemistry - challengeOrdered By: Claire Choi on 07-13-2022 Protein [Mass/Vol] 0.2 g/dL Not Observed [facility] No Panel InformationOrdered By: Claire Choi on 07-13-2022 Protein Electrophoresis Note See comment . [facility] Comment on above: Protein electrophore sis scan will follow via computer, mail, or golf club weighter delivery. Performed at: [employer] [facility] [id number] [employer]loader: Elpidio Delgado PhD, Phone: [phone] Protein [Mass/volume] in Ser um or PlasmaOrdered By: Claire Choi on 07-13-2022 Protein [Mass/Vol] 6.2 g/dL 6.0-8.5 [facility] Serum globulin measurement ( mass/volume)Ordered By: Claire Choi on 07-13-2022 Globulin (S) [Mass/Vol] 2.8 g/dL 2.2-3.9 [facility] Serum or plasma albumin/glob ulin mass ratioOrdered By: Claire Choi on 07-13-2022 Albumin/Globulin [Mass ratio] 1.2 {ratio} 0.7-1.7 [facility] Serum or plasma alpha 1 glob ulin measurement by electrophoresis (mass/volume)Ordered By: Claire Choi on 07-13-2022 Alpha 1 globulin Elph [Mass/Vol] 0.2 g/dL 0.0-0.4 [facility] Serum or plasma alpha 2 glob ulin measurement by electrophoresis (mass/volume)Ordered By: Claire Choi on 07-13-2022 Alpha 2 globulin Elph [Mass/Vol] 0.9 g/dL 0.4-1.0 [facility] Serum or plasma beta globuli n measurement by electrophoresis (mass/volume)Ordered By: Claire Choi on 07-13-2022 Beta globulin Elph [Mass/Vol] 1.0 g/dL 0.7-1.3 [facility] Serum or plasma gamma globul in measurement by electrophoresis (mass/volume)Ordered By: Claire Choi on 07-13-2022 Gamma globulin Elph [Mass/Vol] 0.8 g/dL 0.4-1.8 [facility] CBC AUTO DIFFon 07-12-2022 BASO # 0.0 103/ul Normal 0.0-0.1 [facility] Comment on above: Performed By: #### M G, RENAL, URIC #### [facility] [address] [address] [address] Richa Cheema Basophils/100 WBC (Bld) 0.2 % Normal 0.2-2.0 [facility] Comment on above: Performed By: #### M G, RENAL, URIC #### [facility] [address] [address] [address] Richa Cheema EO # 0.1 103/ul Normal 0.0-0.7 [facility] Comment on above: Performed By: #### M G, RENAL, URIC #### [facility] [address] [address] [address] Richa Cheema Eosinophils/100 WBC (Bld) 1.5 % Normal 0.9-7.0 [facility] Comment on above: Performed By: #### M G, RENAL, URIC #### [facility] [address] [address] [address] Richa Cheema Erythrocyte distribution width (RBC) [Ratio] 13.8 % Normal 11.0-15.0 [facility] Comment on above: Performed By: #### M G, RENAL, URIC #### [facility] [address] [place] [address] Dr. Richa Cheema Hematocrit (Bld) [Volume fraction] 38.4 % Normal 36.0-48.0 [facility] Comment on above: Performed By: #### M G, RENAL, URIC #### [facility] [address] [place] [address] Dr. Richa Cheema Hemoglobin (Bld) [Mass/Vol] 13.0 g/dL Normal 12.0-16.0 [facility] Comment on above: Performed By: #### M G, RENAL, URIC #### [facility] [address] [place] [address] Dr. Richa Cheema IG # 0.01 10e3/ul Normal 0.00-0.03 [facility] Comment on above: Performed By: #### M G, RENAL, URIC #### [facility] [address] [place] [address] Dr. Richa Cheema IG % 0.1 % Normal 0.0-0.5 [facility] Comment on above: Performed By: #### M G, RENAL, URIC #### [facility] [address] [place] [address] Dr. Richa Cheema LYMPH # 3.5 103/ul Normal 1.2-3.8 [facility] Comment on above: Performed By: #### M G, RENAL, URIC #### [facility] [address] [place] [address] Dr. Richa Cheema Lymphocytes/100 WBC (Bld) 42.4 % Normal 20.5-60.0 [facility] Comment on above: Performed By: #### M G, RENAL, URIC #### [facility] [address] [place] [address] Dr. Richa Cheema MANUAL DIFF REQ NO Normal [facility] Comment on above: Performed By: #### M G, RENAL, URIC #### [facility] [address] [place] [address] Dr. Richa Cheema MCH (RBC) [Entitic mass] 31.8 pg Normal 26.7-34.0 [facility] Comment on above: Performed By: #### M G, RENAL, URIC #### [facility] [address] [place] [address] Dr. Richa Cheema MCHC (RBC) [Mass/Vol] 33.9 g/dL Normal 29.9-35.2 [facility] Comment on above: Performed By: #### M G, RENAL, URIC #### [facility] [address] [place] [address] Dr. Richa Cheema MCV (RBC) [Entitic vol] 93.9 fL Normal 81.0-99.0 [facility] Comment on above: Performed By: #### M G, RENAL, URIC #### [facility] [address] [place] [address] Dr. Richa Cheema MONO # 0.5 103/ul Normal 0.3-0.8 [facility] Comment on above: Performed By: #### M G, RENAL, URIC #### [facility] [address] [place] [address] Dr. Richa Cheema Monocytes/100 WBC (Bld) 6.6 % Normal 1.7-12.0 [facility] Comment on above: Performed By: #### M G, RENAL, URIC #### [facility] [address] [place] [address] Dr. Richa Cheema NEUT # 4.0 103/ul Normal 1.4-6.5 [facility] Comment on above: Performed By: #### M G, RENAL, URIC #### [facility] [address] [place] [address] Dr. Richa Cheema Neutrophils/100 WBC (Bld) 49.2 % Normal 43.0-75.0 [facility] Comment on above: Performed By: #### M G, RENAL, URIC #### [facility] [address] [place] [address] Dr. Richa Cheema Platelet mean volume (Bld) [Entitic vol] 10.9 fL Normal 9.5-13.5 [facility] Comment on above: Performed By: #### M G, RENAL, URIC #### [facility] [address] [address] [address] Richa Cheema PLT 193 103/ul Normal 150-450 [facility] Comment on above: Performed By: #### M G, RENAL, URIC #### [facility] [address] [address] [address] Richa Cheema RBC 4.09 106/ul Critically low 4.20-5.40 [facility] Comment on above: Performed By: #### M G, RENAL, URIC #### [facility] [address] [address] [address] Richa Cheema WBC 8.2 103/ul Normal 4.0-11.0 [facility] Comment on above: Performed By: #### M G, RENAL, URIC #### [facility] [address] [place] [address] Dr. Richa Cheema PROF 14(COMP METB)on 022 Albumin [Mass/Vol] 3.7 g/dL Normal 3.4-5.0 [facility] Comment on above: Performed By: #### C MP #### [facility] [address] [place] [address] Dr. Richa Cheema Albumin/Globulin [Mass ratio] 1.2 {ratio} Normal [facility] Comment on above: Performed By: #### C MP #### [facility] [address] [place] [address] Dr. Richa Cheema ALP [Catalytic activity/Vol] 105 U/L Normal 46-116 [facility] Comment on above: Performed By: #### C MP #### [facility] [address] [address] [address] Richa Cheema ALT [Catalytic activity/Vol] 18 U/L Normal 14-59 [facility] Comment on above: Performed By: #### C MP #### [facility] [address] [place] [address] Dr. Richa Cheema Anion gap [Moles/Vol] 11.4 mmol/L Normal [facility] Comment on above: Performed By: #### C MP #### [facility] [address] [address] [address] Richa Cheema AST [Catalytic activity/Vol] 12 U/L Critically low 15-37 [facility] Comment on above: Performed By: #### C MP #### [facility] [address] [address] [address] Richa Cheema Bilirubin [Mass/Vol] 0.3 mg/dL Normal 0.2-1.0 [facility] Comment on above: Performed By: #### C MP #### [facility] [address] [address] [address] Richa Cheema Calcium [Mass/Vol] 8.8 mg/dL Normal 8.5-10.1 [facility] Comment on above: Performed By: #### C MP #### [facility] [address] [address] [address] Richa Cheema Chloride [Moles/Vol] 104 mmol/L Normal 98-107 [facility] Comment on above: Performed By: #### C MP #### [facility] [address] [address] [address] Richa Cheema CO2 [Moles/Vol] 26.9 mmol/L Normal 21.0-32.0 [facility] Comment on above: Performed By: #### C MP #### [facility] [address] [address] [address] Richa Cheema Creatinine [Mass/Vol] 2.38 mg/dL Critically high 0.55-1.02 [facility] Comment on above: Performed By: #### C MP #### [facility] [address] [address] [address] Richa Cheema EGFR-AF NICARAGUAN 24 mL/min/1.73m2 Critically low >=60 [facility] Comment on above: Performed By: #### C MP #### [facility] [address] [address] [address] Richa Cheema EGFR-NON AF NICARAGUAN 20 mL/min/1.73m2 Critically low >=60 [facility] Comment on above: Performed By: #### C MP #### [facility] [address] [address] [address] Richa Cheema Globulin (S) [Mass/Vol] 3.1 g/dL Normal [facility] Comment on above: Performed By: #### C MP #### [facility] [address] [address] [address] Richa Cheema Glucose [Mass/Vol] 146 mg/dL Critically high 74-106 [facility] Comment on above: Performed By: #### C MP #### [facility] [address] [address] [address] Richa Cheema Potassium [Moles/Vol] 4.3 mmol/L Normal 3.5-5.1 [facility] Comment on above: Performed By: #### C MP #### [facility] [address] [place] [address] Dr. Richa Cheema Protein [Mass/Vol] 6.8 g/dL Normal 6.4-8.2 [facility] Comment on above: Performed By: #### C MP #### [facility] [address] [place] [address] Dr. Richa Cheema Sodium [Moles/Vol] 138 mmol/L Normal 136-145 [facility] Comment on above: Performed By: #### C MP #### [facility] [address] [place] [address] Dr. Richa Cheema Urea nitrogen [Mass/Vol] 31.0 mg/dL Critically high 7.0-18 .0 [facility] Comment on above: Performed By: #### C MP #### [facility] [address] [address] [address] Richa Cheema Urea nitrogen/Creatinine [Mass ratio] 13.0 mg/mg Normal [facility] Comment on above: Performed By: #### C MP #### [facility] [address] [place] [address] Dr. Richa Cheema PTH INTACTon 07-01-2022 PTH, Intact 93 pg/mL Critically high 15-65 [facility] Comment on above: Performed By: #### H H #### [facility] [address] [address] [address] Richa Cheema VIT D 25-OH LABCORPon 2021 Vitamin D, 25-Hydroxy 31.8 ng/mL Normal 30.0-100.0 [facility] Comment on above: Result Comment: Wojciech min D deficiency has been defined by the [employer] and an Endocrine Society practice guideline as a level of serum 25-OH vitamin D less than 20 ng/mL (1,2). The Endocrine Society went on to further define vitamin D insufficiency as a level between 21 and 29 ng/mL (2). 1. IOM ([employer]). 2010. Dietary reference intakes for calcium and D. [place]: The National Academies Press. 2. Reji MF, Caro RUSH, Marguerite MCMAHON, et al. Evaluation, treatment, and prevention of vitamin D deficiency: an Endocrine Society clinical practice guideline. JCEM. 2010; 96(7):1911-30. Performed By: #### M G, RENAL, URIC #### [facility] [address] [place] [address] Dr. Richa Cheema HEMOGRAM AND PLATELon 2021 Hematocrit (Bld) [Volume fraction] 39.4 % Normal 36.0-48.0 [facility] Comment on above: Performed By: #### H H #### [facility] [address] [address] [address] Richa Cheema Hemoglobin (Bld) [Mass/Vol] 13.1 g/dL Normal 12.0-16.0 [facility] Comment on above: Performed By: #### H H #### [facility] [address] [address] [address] Richa Cheema MCH (RBC) [Entitic mass] 31.6 pg Normal 26.7-34.0 [facility] Comment on above: Performed By: #### H H #### [facility] [address] [address] [address] Richa Cheema MCHC (RBC) [Mass/Vol] 33.2 g/dL Normal 29.9-35.2 [facility] Comment on above: Performed By: #### H H #### [facility] [address] [address] [address] Richa Cheema MCV (RBC) [Entitic vol] 94.9 fL Normal 81.0-99.0 [facility] Comment on above: Performed By: #### H H #### [facility] [address] [address] [address] Richa Cheema PLT 186 103/ul Normal 150-450 [facility] Comment on above: Performed By: #### H H #### [facility] [address] [address] [address] Richa Cheema RBC 4.15 106/ul Critically low 4.20-5.40 [facility] Comment on above: Performed By: #### H H #### [facility] [address] [place] [address] Dr. Richa Cheema WBC 9.5 103/ul Normal 4.0-11.0 [facility] Comment on above: Performed By: #### H H #### [facility] [address] [place] [address] Dr. Richa Cheema MAGNESIUMon 06-30-2022 Magnesium [Mass/Vol] 1.9 mg/dL Normal 1.8-2.4 [facility] Comment on above: Performed By: #### M G, RENAL, URIC #### [facility] [address] [place] [address] Dr. Richa Cheema RENAL FUNCTION PANELon 06-30 Albumin [Mass/Vol] 3.6 g/dL Normal 3.4-5.0 [facility] Comment on above: Performed By: #### M G, RENAL, URIC #### [facility] [address] [address] [address] Richa Cheema Calcium [Mass/Vol] 8.6 mg/dL Normal 8.5-10.1 [facility] Comment on above: Performed By: #### M G, RENAL, URIC #### [facility] [address] [address] [address] Richa Cheema Chloride [Moles/Vol] 105 mmol/L Normal 98-107 [facility] Comment on above: Performed By: #### M G, RENAL, URIC #### [facility] [address] [address] [address] Richa Cheema CO2 [Moles/Vol] 25.5 mmol/L Normal 21.0-32.0 [facility] Comment on above: Performed By: #### M G, RENAL, URIC #### [facility] [address] [place] [address] Dr. Richa Cheema Creatinine [Mass/Vol] 2.19 mg/dL Critically high 0.55-1.02 [facility] Comment on above: Performed By: #### M G, RENAL, URIC #### [facility] [address] [place] [address] Dr. Richa Cheema EGFR-AF NICARAGUAN 26 mL/min/1.73m2 Critically low >=60 [facility] Comment on above: Performed By: #### M G, RENAL, URIC #### [facility] [address] [place] [address] Dr. Richa Cheema EGFR-NON AF NICARAGUAN 22 mL/min/1.73m2 Critically low >=60 [facility] Comment on above: Performed By: #### M G, RENAL, URIC #### [facility] [address] [place] [address] Dr. Richa Cheema Glucose [Mass/Vol] 156 mg/dL Critically high 74-106 [facility] Comment on above: Performed By: #### M G, RENAL, URIC #### [facility] [address] [place] [address] Dr. Richa Cheema Phosphate [Mass/Vol] 3.8 mg/dL Normal 2.6-4.7 [facility] Comment on above: Performed By: #### M G, RENAL, URIC #### [facility] [address] [place] [address] Dr. Richa Cheema Potassium [Moles/Vol] 4.7 mmol/L Normal 3.5-5.1 [facility] Comment on above: Performed By: #### M G, RENAL, URIC #### [facility] [address] [place], [place] [id number] Dr. Richa Cheema Sodium [Moles/Vol] 139 mmol/L Normal 136-145 [facility] Comment on above: Performed By: #### M G, RENAL, URIC #### [facility] [address] [place] [address] Dr. Richa Cheema Urea nitrogen [Mass/Vol] 25.0 mg/dL Critically high 7.0-18 .0 [facility] Comment on above: Performed By: #### M G, RENAL, URIC #### [facility] [address] [place] [address] Dr. Richa Cheema UA RANDOM W/MICROSCOPICon BACTERIA NONE SEEN Normal NONE SEEN [facility] Comment on above: Performed By: #### H H #### [facility] [address] [place] [address] Dr. Richa Cheema Bilirubin Ql (U) Negative Normal NEGATIVE [facility] Comment on above: Performed By: #### H H #### [facility] [address] [place] [address] Dr. Richa Cheema CAST NONE SEEN Normal NONE SEEN [facility] Comment on above: Performed By: #### H H #### [facility] [address] [place] [address] Dr. Richa Cheema Clarity (U) CLEAR Normal CLEAR [facility] Comment on above: Performed By: #### H H #### [facility] [address] [place] [address] Dr. Richa Cheema Color (U) LT. YELLOW Normal YELLOW [facility] Comment on above: Performed By: #### H H #### [facility] [address] [place] [address] Dr. Richa Cheema Crystals LM Nom (Urine sed) NONE SEEN Normal NONE SEEN [facility] Comment on above: Performed By: #### H H #### [facility] [address] [place] [address] Dr. Richa Cheema Epithelial cells LM Ql (Urine sed) FEW Abnormal NONE SEEN /RARE [facility] Comment on above: Performed By: #### H H #### [facility] [address] [place] [address] Dr. Richa Cheema Glucose Ql (U) Negative Normal NEGATIVE [facility] Comment on above: Performed By: #### H H #### [facility] [address] [place] [address] Dr. Richa Cheema Hemoglobin Ql (U) Negative Normal NEGATIVE [facility] Comment on above: Performed By: #### H H #### [facility] [address] [place] [address] Dr. Richa Cheema Ketones Ql (U) Negative Normal NEGATIVE [facility] Comment on above: Performed By: #### H H #### [facility] [address] [place] [address] Dr. Richa Cheema LEUKOCYTES Negative Normal NEGATIVE [facility] Comment on above: Performed By: #### H H #### [facility] [address] [place] [address] Dr. Richa Cheema MUCOUS NONE SEEN Normal NONE SEEN [facility] Comment on above: Performed By: #### H H #### [facility] [address] [place] [address] Dr. Richa Cheema Nitrite Ql (U) Negative Normal NEGATIVE [facility] Comment on above: Performed By: #### H H #### [facility] [address] [place] [address] Dr. Richa Cheema pH (U) 7.5 [pH] Normal 5-9 [facility] Comment on above: Performed By: #### H H #### [facility] [address] [place] [address] Dr. Richa Cheema RBC NONE SEEN Abnormal 0-2 [facility] Comment on above: Performed By: #### H H #### [facility] [address] [place] [address] Dr. Richa Cheema SPEC GRAVITY 1.015 Normal 1.005-<=1. 025 [facility] Comment on above: Performed By: #### H H #### [facility] [address] [place] [address] Dr. Richa Cheema UA PROTEIN 30 mg/dl Abnormal NEGATIVE/ TRACE [facility] Comment on above: Performed By: #### H H #### [facility] [address] [place] [address] Dr. Richa Cheema Urobilinogen Qn (U) 0.2 {Marley'U}/dL Normal 0.2 - 1. 0 [facility] Comment on above: Performed By: #### H H #### [facility] [address] [place] [address] Dr. Richa Cheema WBC NONE SEEN Normal NONE SEEN [facility] Comment on above: Performed By: #### H H #### [facility] [address] [place] [address] Dr. Richa Cheema URIC ACID SERUMon 06-30-2022 Urate [Mass/Vol] 5.4 mg/dL Normal 2.6-6.0 [facility] Comment on above: Performed By: #### M G, RENAL, URIC #### [facility] [address] [place] [address] Dr. Richa Cheema URINE T PROTEIN CREAT RATIOo n 06-30-2022 Protein (U) [Mass/Vol] 72.9 mg/dL Critically high <=12.0 [facility] Comment on above: Performed By: #### U RTPCR #### [facility] [address] [place] [address] Dr. Richa Cheema UR PROT CREAT RAT 0.90 Normal [facility] Comment on above: Performed By: #### U RTPCR #### [facility] [address] [place] [address] Dr. Richa Cheema URINE CREAT 80.68 mg/dL Normal 20.00-300. 00 [facility] Comment on above: Performed By: #### U RTPCR #### [facility] [address] [place] [address] Dr. Richa Cheema Office Visit (Cardiology)on 06-16-2022 [...] recurrence. She did have noninvasive assessment at [facility], which was negative. Couple of years ago. [...] TabletTake 1 (more content not included)... Normal [employer] Tobacco Screening.on 022 Adult depression screening assessment No [facility] [employer] DO Work Phone: Fall risk assessment a) No falls within the last year [facility] [employer] [facility] [employer] 250 DO Work Phone: Tobacco use status [facility] b) No M [facility] [employer] 250 DO Work Phone: FREE LIGHT CHAINS PLUS RATIO on 06-01-2022 Free Ritchey Lt Chains,S 24.1 mg/L Critically high 3.3-19.4 [facility] Comment on above: Performed By: #### M G, RENAL, URIC #### [facility] [address] [address] [address] Richa Cheema Free Lambda Lt Chains,S 17.1 mg/L Normal 5.7-26.3 [facility] Comment on above: Performed By: #### M G, RENAL, URIC #### [facility] [address] [address] [address] Richa Cheema Ritchey/Lambda Ratio, S 1.41 Normal 0.26-1.65 [facility] Comment on above: Performed By: #### M G, RENAL, URIC #### [facility] [address] [address] [address] Richa Cheema Albumin [Mass/volume] in Ser um or PlasmaOrdered By: Claire Choi on 05-31-2022 Albumin [Mass/Vol] 3.5 g/dL 3.2-5.5 [facility] Basophils Auto (Bld) [#/Vol] Ordered By: Claire Choi on 05-31-2022 Basophils (Bld) [#/Vol] 0.1 10*3/uL 0.0-0.2 [facility] Basophils/100 WBC Auto (Bld) Ordered By: Claire Choi on 05-31-2022 Basophils/100 WBC (Bld) 0.9 % . [facility] Blood hemoglobin measurement (mass/volume)Ordered By: Claire Choi on 05-31-2022 Hemoglobin (Bld) [Mass/Vol] 13.5 g/dL 11.8-15.4 [facility] Blood leukocytes automated c ount (number/volume)Ordered By: Claire Choi on 05-31-2022 WBC (Bld) [#/Vol] 9.6 10*3/uL 4.5-11.0 [facility] Creatinine and Glomerular fi ltration rate.predicted panel (S/P/Bld)Ordered By: Claire Choi on 05-31-2022 Creatinine [Mass/Vol] 2.38 mg/dL 0.44-1.03 [facility] Eosinophils Auto (Bld) [#/Vo l]Ordered By: Claire Choi on 05-31-2022 Eosinophils (Bld) [#/Vol] 0.1 10*3/uL 0.0-0.45 [facility] Eosinophils/100 WBC Auto (Bl d)Ordered By: Claire Choi on 05-31-2022 Eosinophils/100 WBC (Bld) 1.0 % . [facility] Erythrocyte distribution wid th Auto (RBC) [Ratio]Ordered By: Claire Choi on 05-31-2022 Erythrocyte distribution width (RBC) [Ratio] 13.8 % 11.9-15.3 [facility] Estimated glomerular filtrat ion rate (GFR) non- AmericanOrdered By: Claire Choi on 05-31-2022 GFR/1.73 sq M.predicted among non-blacks MDRD (S/P/Bld) [Vol rate/Area] 20 mL/Min [facility] Globulin Calc (S) [Mass/Vol] Ordered By: Claire Choi on 05-31-2022 Globulin (S) [Mass/Vol] 2.7 g/dL [facility] Hematocrit Auto (Bld) [Volum e fraction]Ordered By: Claire Choi on 05-31-2022 Hematocrit (Bld) [Volume fraction] 41.0 % 34.0-46.4 [facility] - Hematology and Cell countsOrdered By: Claire Choi on 05-31-2022 Nucleated RBC/100 WBC (Bld) [Ratio] 0.1 % 0-0.5 [facility] Lymphocytes Auto (Bld) [#/Vo l]Ordered By: Claire Choi on 05-31-2022 Lymphocytes (Bld) [#/Vol] 3.1 10*3/uL 1.00-4.8 [facility] Lymphocytes/100 WBC Auto (Bl d)Ordered By: Claire Choi on 05-31-2022 Lymphocytes/100 WBC (Bld) 32.7 % . [facility] MCH Auto (RBC) [Entitic mass ]Ordered By: Claire Choi on 05-31-2022 MCH (RBC) [Entitic mass] 31.0 pg 24.7-34.3 [facility] MCHC Auto (RBC) [Mass/Vol]Or dered By: Claire Choi on 05-31-2022 MCHC (RBC) [Mass/Vol] 33.0 g/dL 32.0-35.0 [facility] MCV Auto (RBC) [Entitic vol] Ordered By: Claire Choi on 05-31-2022 MCV (RBC) [Entitic vol] 94.0 fL 80-100 [facility] Monocytes Auto (Bld) [#/Vol] Ordered By: Claire Choi on 05-31-2022 Monocytes (Bld) [#/Vol] 0.6 10*3/uL 0.0-0.8 [facility] Monocytes/100 WBC Auto (Bld) Ordered By: Claire Choi on 05-31-2022 Monocytes/100 WBC (Bld) 6.0 % . [facility] Neutrophils Auto (Bld) [#/Vo l]Ordered By: Claire Choi on 05-31-2022 Neutrophils (Bld) [#/Vol] 5.7 10*3/uL 1.8-7.7 [facility] Neutrophils/100 WBC Auto (Bl d)Ordered By: Claire Choi on 05-31-2022 Neutrophils/100 WBC (Bld) 59.4 % . [facility] No Panel InformationOrdered By: Claire Choi on 05-31-2022 Estimated GFR () 24 mL/Min [facility] Comment on above: GFR estimated refere nce range: According to KDOQI guidelines, <60 ml/min/1.73m2 is sufficient to diagnose a patient with chronic kidney disease. Pharmacy Creatinine Clearance (Chem 20.55 [facility] PROTEIN ELECTROPHERESISon Albumin [Mass/Vol] 3.8 g/dL Normal 2.9-4.4 [facility] Comment on above: Performed By: #### P RTELEC #### [facility] [address] [place] [address] Dr. Richa Cheema Albumin/Globulin [Mass ratio] 1.5 {ratio} Normal 0.7-1.7 [facility] Comment on above: Performed By: #### P RTELEC #### [facility] [address] [place] [address] Dr. Richa Cheema Idohw-7-Plfgkwwn 0.2 g/dL Normal 0.0-0.4 [facility] Comment on above: Performed By: #### P RTELEC #### [facility] [address] [place] [address] Dr. Richa Cheema Pcnmm-4-Dwknhpug 0.9 g/dL Normal 0.4-1.0 [facility] Comment on above: Performed By: #### P RTELEC #### [facility] [address] [place] [address] Dr. Richa Cheema Beta Globulin 0.9 g/dL Normal 0.7-1.3 [facility] Comment on above: Performed By: #### P RTELEC #### [facility] [address] [place] [address] Dr. Richa Cheema Gamma Globulin 0.6 g/dL Normal 0.4-1.8 [facility] Comment on above: Performed By: #### P RTELEC #### [facility] [address] [place] [address] Dr. Richa Cheema Globulin (S) [Mass/Vol] 2.5 g/dL Normal 2.2-3.9 [facility] Comment on above: Performed By: #### P RTELEC #### [facility] [address] [address] [address] Richa Cheema M-Krystian Not Observed Normal Not Observed [facility] Comment on above: Performed By: #### P RTELEC #### [facility] [address] [address] [address] Richa Cheema PDF . Normal [facility] Comment on above: Performed By: #### P RTELEC #### [facility] [address] [address] [address] Richa Cheema Please note: Comment Normal [facility] Comment on above: Result Comment: Prot ein electrophoresis scan will follow via computer, mail, or golf club weighter delivery. Performed By: #### P RTELEC #### [facility] [address] [place] [address] Dr. Richa Cheema Protein [Mass/Vol] 6.3 g/dL Normal 6.0-8.5 [facility] Comment on above: Performed By: #### P RTELEC #### [facility] [address] [address] [address] Richa Cheema Platelet mean volume Auto (B ld) [Entitic vol]Ordered By: Claire Choi on 05-31-2022 Platelet mean volume (Bld) [Entitic vol] 9.4 fL 6.3-10.7 [facility] Platelets Auto (Bld) [#/Vol] Ordered By: Claire Choi on 05-31-2022 Platelets (Bld) [#/Vol] 254 10*3/uL 150-450 [facility] Protein [Mass/volume] in Ser um or PlasmaOrdered By: Claire Choi on 05-31-2022 Protein [Mass/Vol] 6.2 g/dL 6.1-7.9 [facility] RBC Auto (Bld) [#/Vol]Ordere d By: Claire Choi on 05-31-2022 RBC (Bld) [#/Vol] 4.37 10*6/uL 3.60-5.00 [facility] Serum or plasma alanine genao otransferase measurement without P-5'-P (enzymatic activiOrdered By: Claire Choi on 05-31-2022 ALT No additional P-5'-P [Catalytic activity/Vol] 15 U/L 10-60 [facility] Serum or plasma albumin/glob ulin mass ratioOrdered By: Claire Choi on 05-31-2022 Albumin/Globulin [Mass ratio] 1.3 {ratio} [facility] Serum or plasma alkaline bree sphatase measurement (enzymatic activity/volume)Ordered By: Claire Choi on 05-31-2022 ALP [Catalytic activity/Vol] 90 U/L 32-92 [facility] Serum or plasma aspartate am inotransferase measurement (enzymatic activity/volume)Ordered By: Claire Choi on 05-31-2022 AST [Catalytic activity/Vol] 19 U/L 10-42 [facility] Serum or plasma calcium leonor urement (mass/volume)Ordered By: Claire Choi on 05-31-2022 Calcium [Mass/Vol] 8.9 mg/dL 8.2-10.2 [facility] Serum or plasma chloride trinidad surement (moles/volume)Ordered By: Claire Choi on 05-31-2022 Chloride [Moles/Vol] 106 mmol/L 95-114 [facility] Serum or plasma glucose leonor urement (mass/volume)Ordered By: Claire Choi on 05-31-2022 Glucose [Mass/Vol] 151 mg/dL 70-100 [facility] Comment on above: ADA recommended refe rence range Random Glucose Reference Range is dependent on time and content of last meal. Glucose of more than 200 mg/dL in a nonstressed, ambulatory subject supports the diagnosis of Diabetes Mellitus. Serum or plasma potassium me asurement (moles/volume)Ordered By: Claire Choi on 05-31-2022 Potassium [Moles/Vol] 4.9 mmol/L 3.5-5.1 [facility] Serum or plasma sodium measu rement (moles/volume)Ordered By: Claire Choi on 05-31-2022 Sodium [Moles/Vol] 135 mmol/L 136-146 [facility] Serum or plasma total biliru bin measurement (mass/volume)Ordered By: Claire Choi on 05-31-2022 Bilirubin [Mass/Vol] 0.7 mg/dL 0.3-1.2 [facility] Serum or plasma total carbon dioxide measurement (moles/volume)Ordered By: Claire Choi on 05-31-2022 CO2 [Moles/Vol] 20.9 mmol/L 22.0-30.0 [facility] Serum or plasma urea nitroge n measurement (mass/volume)Ordered By: Claire Choi on 05-31-2022 Urea nitrogen [Mass/Vol] 28 mg/dL 08-06 [facility] CBC AUTO DIFFon 05-28-2022 BASO # 0.0 103/ul Normal 0.0-0.1 [facility] Comment on above: Performed By: #### M G, RENAL, URIC #### [facility] [address] [address] [address] Richa Cheema Basophils/100 WBC (Bld) 0.4 % Normal 0.2-2.0 [facility] Comment on above: Performed By: #### M G, RENAL, URIC #### [facility] [address] [address] [address] Richa Cheema EO # 0.1 103/ul Normal 0.0-0.7 [facility] Comment on above: Performed By: #### M G, RENAL, URIC #### [facility] [address] [address] [address] Richa Cheema Eosinophils/100 WBC (Bld) 1.2 % Normal 0.9-7.0 [facility] Comment on above: Performed By: #### M G, RENAL, URIC #### [facility] [address] [address] [address] Richa Cheema Erythrocyte distribution width (RBC) [Ratio] 13.5 % Normal 11.0-15.0 [facility] Comment on above: Performed By: #### M G, RENAL, URIC #### [facility] [address] [address] [address] Richa Cheema Hematocrit (Bld) [Volume fraction] 41.3 % Normal 36.0-48.0 [facility] Comment on above: Performed By: #### M G, RENAL, URIC #### [facility] [address] [place] [address] Dr. Richa Cheema Hemoglobin (Bld) [Mass/Vol] 13.5 g/dL Normal 12.0-16.0 [facility] Comment on above: Performed By: #### M G, RENAL, URIC #### [facility] [address] [place] [address] Dr. Richa Cheema IG # 0.02 10e3/ul Normal 0.00-0.03 [facility] Comment on above: Performed By: #### M G, RENAL, URIC #### [facility] [address] [place] [address] Dr. Richa Cheema IG % 0.2 % Normal 0.0-0.5 [facility] Comment on above: Performed By: #### M G, RENAL, URIC #### [facility] [address] [place] [address] Dr. Richa Cheema LYMPH # 2.6 103/ul Normal 1.2-3.8 [facility] Comment on above: Performed By: #### M G, RENAL, URIC #### [facility] [address] [place] [address] Dr. Richa Cheema Lymphocytes/100 WBC (Bld) 32.0 % Normal 20.5-60.0 [facility] Comment on above: Performed By: #### M G, RENAL, URIC #### [facility] [address] [place] [address] Dr. Richa Cheema MANUAL DIFF REQ NO Normal [facility] Comment on above: Performed By: #### M G, RENAL, URIC #### [facility] [address] [place] [address] Dr. Richa Cheema MCH (RBC) [Entitic mass] 31.0 pg Normal 26.7-34.0 [facility] Comment on above: Performed By: #### M G, RENAL, URIC #### [facility] [address] [place] [address] Dr. Richa Cheema MCHC (RBC) [Mass/Vol] 32.7 g/dL Normal 29.9-35.2 [facility] Comment on above: Performed By: #### M G, RENAL, URIC #### [facility] [address] [place] [address] Dr. Richa Cheema MCV (RBC) [Entitic vol] 94.7 fL Normal 81.0-99.0 [facility] Comment on above: Performed By: #### M G, RENAL, URIC #### [facility] [address] [place] [address] Dr. Richa Cheema MONO # 0.5 103/ul Normal 0.3-0.8 [facility] Comment on above: Performed By: #### M G, RENAL, URIC #### [facility] [address] [place] [address] Dr. Richa Cheema Monocytes/100 WBC (Bld) 5.7 % Normal 1.7-12.0 [facility] Comment on above: Performed By: #### M G, RENAL, URIC #### [facility] [address] [place] [address] Dr. Richa Cheema NEUT # 4.9 103/ul Normal 1.4-6.5 [facility] Comment on above: Performed By: #### M G, RENAL, URIC #### [facility] [address] [place] [address] Dr. Richa Cheema Neutrophils/100 WBC (Bld) 60.5 % Normal 43.0-75.0 [facility] Comment on above: Performed By: #### M G, RENAL, URIC #### [facility] [address] [place] [address] Dr. Richa Cheema Platelet mean volume (Bld) [Entitic vol] 10.6 fL Normal 9.5-13.5 [facility] Comment on above: Performed By: #### M G, RENAL, URIC #### [facility] [address] [place] [address] Dr. Richa Cheema PLT 229 103/ul Normal 150-450 [facility] Comment on above: Performed By: #### M G, RENAL, URIC #### [facility] [address] [address] [address] Richa Cheema RBC 4.36 106/ul Normal 4.20-5.40 [facility] Comment on above: Performed By: #### M G, RENAL, URIC #### [facility] [address] [address] [address] Richa Cheema WBC 8.1 103/ul Normal 4.0-11.0 [facility] Comment on above: Performed By: #### M G, RENAL, URIC #### [facility] [address] [address] [address] Richa Cheema GLYCOHEMOGLOBIN A1Con 2021 ADA RECOMMENDATION SEE BELOW Normal [facility] Comment on above: Result Comment: ADA RECOMMENDED LIMIT 4.0 - 6.0 ADA THERAPEUTIC TARGET < 7.0 ACTION SUGGESTED > 7.0 Performed By: #### H H #### [facility] [address] [place] [address] Dr. Richa Cheema Glucose [Mass/Vol] 166 mg/dL Normal [facility] Comment on above: Performed By: #### H H #### [facility] [address] [address] [address] Richa Cheema HbA1c (Bld) [Mass fraction] 7.4 % Critically high 4.5-6.2 [facility] Comment on above: Performed By: #### H H #### [facility] [address] [place] [address] Dr. Richa Cheema PROF 14(COMP METB)on 022 Albumin [Mass/Vol] 3.4 g/dL Normal 3.4-5.0 [facility] Comment on above: Performed By: #### M G, RENAL, URIC #### [facility] [address] [place] [address] Dr. Richa Cheema Albumin/Globulin [Mass ratio] 1.0 {ratio} Normal [facility] Comment on above: Performed By: #### M G, RENAL, URIC #### [facility] [address] [address] [address] Richa Cheema ALP [Catalytic activity/Vol] 111 U/L Normal 46-116 [facility] Comment on above: Performed By: #### M G, RENAL, URIC #### [facility] [address] [place] [address] Dr. Richa Cheema ALT [Catalytic activity/Vol] 21 U/L Normal 14-59 [facility] Comment on above: Performed By: #### M G, RENAL, URIC #### [facility] [address] [place] [address] Dr. Richa Cheema Anion gap [Moles/Vol] 14.1 mmol/L Normal Th e [facility] Comment on above: Performed By: #### M G, RENAL, URIC #### [facility] [address] [place] [address] Dr. Richa Cheema AST [Catalytic activity/Vol] 13 U/L Critically low 15-37 [facility] Comment on above: Performed By: #### M G, RENAL, URIC #### [facility] [address] [place] [address] Dr. Richa Cheema Bilirubin [Mass/Vol] 0.3 mg/dL Normal 0.2-1.0 [facility] Comment on above: Performed By: #### M G, RENAL, URIC #### [facility] [address] [place] [address] Dr. Richa Cheema Calcium [Mass/Vol] 9.1 mg/dL Normal 8.5-10.1 [facility] Comment on above: Performed By: #### M G, RENAL, URIC #### [facility] [address] [place] [address] Dr. Richa Cheema Chloride [Moles/Vol] 107 mmol/L Normal 98-107 [facility] Comment on above: Performed By: #### M G, RENAL, URIC #### [facility] [address] [place] [address] Dr. Richa Cheema CO2 [Moles/Vol] 23.7 mmol/L Normal 21.0-32.0 [facility] Comment on above: Performed By: #### M G, RENAL, URIC #### [facility] [address] [place] [address] Dr. Richa Cheema Creatinine [Mass/Vol] 2.56 mg/dL Critically high 0.55-1.02 [facility] Comment on above: Performed By: #### M G, RENAL, URIC #### [facility] [address] [address] [address] Richa Cheema EGFR-AF NICARAGUAN 22 mL/min/1.73m2 Critically low >=60 [facility] Comment on above: Performed By: #### M G, RENAL, URIC #### [facility] [address] [place] [address] Dr. Richa Cheema EGFR-NON AF NICARAGUAN 18 mL/min/1.73m2 Critically low >=60 [facility] Comment on above: Performed By: #### M G, RENAL, URIC #### [facility] [address] [place] [address] Dr. Richa Cheema Globulin (S) [Mass/Vol] 3.4 g/dL Normal [facility] Comment on above: Performed By: #### M G, RENAL, URIC #### [facility] [address] [place] [address] Dr. Richa Cheema Glucose [Mass/Vol] 211 mg/dL Critically high 74-106 [facility] Comment on above: Performed By: #### M G, RENAL, URIC #### [facility] [address] [place] [address] Dr. Richa Cheema Potassium [Moles/Vol] 4.8 mmol/L Normal 3.5-5.1 [facility] Comment on above: Performed By: #### M G, RENAL, URIC #### [facility] [address] [address] [address] Richa Cheema Protein [Mass/Vol] 6.8 g/dL Normal 6.4-8.2 [facility] Comment on above: Performed By: #### M G, RENAL, URIC #### [facility] [address] [address] [address] Richa Cheema Sodium [Moles/Vol] 140 mmol/L Normal 136-145 [facility] Comment on above: Performed By: #### M G, RENAL, URIC #### [facility] [address] [place], [place] [address] Dr. Richa Chemea Urea nitrogen [Mass/Vol] 29.0 mg/dL Critically high 7.0-18 .0 [facility] Comment on above: Performed By: #### M G, RENAL, URIC #### [facility] [address] [place], [place] [address] Dr. Richa Cheema Urea nitrogen/Creatinine [Mass ratio] 11.3 mg/mg Normal [facility] Comment on above: Performed By: #### M G, RENAL, URIC #### [facility] [address] [place], [place] [address] Dr. Richa Cheema Covid-19 PCR ([facility])on SARS-CoV-2 (COVID-19) RNA RADHA+probe Ql (Unsp spec) Detected Critically abnormal NOT DETECTED [facility] Comment on above: Result Comment: This test is not yet approved or cleared by the [place] FDA. When there are no FDA-approved or cleared tests available, and other criteria are met, FDA can make tests available under an emergency access mechanism called an Emergency Use Authorization (EUA). The EUA for this test is supported by the Ticket Sales Supervisor of Health and Human Service's (HHS's) declaration [...] used). Performed By: #### C VDTBH #### [facility] [address] [place], [place] [address] Dr. Richa Cheema XR LSPINE MIN 4 [...] DIANN IBANEZ Date: 2022-04-14 11:25 Normal [facility] CT HEAD WO CONon 04-07-2022 CT HEAD [...] DIANN IBANEZ Date: 2022-04-07 15:47 Normal [facility] - Chemistry and C hemistry - challengeOrdered By: Akin Suarez on 09-07-2021 Magnesium [Mass/Vol] 2.0 mg/dL 1.6-2.6 [facility] No Panel InformationOrdered By: Akin Suarez on 09-07-2021 25-Hydroxy Vitamin D Total 38.5 ng/mL 30-100 [facility] Comment on above: VITAMIN D STATUS 25( [place])VITAMIN D RANGE (ng/mL) Deficient <20 Insufficient 20 to <30 Sufficient 30 to 100 Reference: Reji MF,Caro NC, Marguerite MCMAHON, et al. Evaluation,treatment, and prevention of vitamin D deficiency; an Endocrine Society clinical practice guideline. JCEM. 2010; 96(7):1911-30. VITAMIN D STATUS 25( [place])VITAMIN D RANGE (ng/mL) Deficient <20 Insufficient 20 to <30Sufficient 30 to 100Reference: Reji MF,Caro RUSH, Marguerite MCMAHON, et al. Evaluation,treatment, and prevention of vitamin D deficiency; an Endocrine Society clinical practice guideline. JCEM. 2010; 96(7):1911-30. Phosphate [Mass/volume] in S amanda or PlasmaOrdered By: Akin Suarez on 09-07-2021 Phosphate [Mass/Vol] 3.7 mg/dL 2.5-4.6 [facility] Serum or plasma intact parat hyroid hormone measurement (mass/volume)Ordered By: Akin Suarez on 09-07-2021 Parathyrin.intact [Mass/Vol] 137.7 pg/mL High 12 [facility] Serum or plasma uric acid me asurement (mass/volume)Ordered By: Akin Suarez on 09-07-2021 Urate [Mass/Vol] 4.8 mg/dL 2.6-7.2 [facility] Tobacco Screening.on 021 Fall risk assessment a) No falls within the last year -[facility] [employer] [address] DO Work Phone: Tobacco use status [facility]PHS b) No M -[facility] [employer] [address] DO Work Phone: CT biopsyOrdered By: Louis sweet on 06-09-2021 CT biopsy 24 Hours [facility] IgA [Mass/volume] in Serum o r PlasmaOrdered By: Louis Bradley on 06-09-2021 IgA [Mass/Vol] 65 mg/dL 64-422 [facility] IgG [Mass/volume] in Serum o r PlasmaOrdered By: Louis Bradley on 06-09-2021 IgG [Mass/Vol] 654 mg/dL 586-1602 [facility] IgM [Mass/volume] in Serum o r PlasmaOrdered By: Louis Bradley on 06-09-2021 IgM [Mass/Vol] 23 mg/dL 26-217 [facility] Comment on above: Result confirmed on concentration. Performed at: [address] [id number] Car Unloader: Elpidio Delgado PhD, Phone: [phone] Result confirmed on concentration.Performed at: [address] [id number] Director: Elpidio Delgado PhD, Phone: [phone] Immunofixation for UrineOrde red By: Louis Bradley on 06-09-2021 Interpretation Immunofixation (U) [Interp] See comment Abnormal . [facility] Comment on above: Bence Jenkins Protein positive; kappa type. Performed at: [address] [id number] Car Unloader: Elpidio Delgado PhD, Phone: [phone] Bence Jenkins Protein positive; kappa type.Performed at: [address] [id number] Director: Elpidio Delgado PhD, Phone: [phone] Interpretation Immunofixation (U) [Interp] Immunofixation for Urine Abnormal . [facility] Intravascular ultrasound (IV US) of initial vesselOrdered By: Louis Bradley on 06-09-2021 Intravascular ultrasound (IVUS) of initial vessel Intravascular ultrasound (IVUS) of initial vessel [facility] No Panel InformationOrdered By: Louis Bradley on 06-09-2021 Serum Immunofixation See comment . [facility] Comment on above: Immunofixation shows IgG monoclonal protein with kappa light chain specificity. Please note that samples from patients receiving DARZALEX(R) (daratumumab) treatment can appear as an IgG kappa and mask a complete response. If this patient is receiving IRMA, this HAILEE assay interference can be removed by ordering test number [id number]- Immunofixation, Daratumumab- Specific, Serum and submitting a [...] interference can be removedby ordering test number [id number] Immunofixation, Daratumumab-Specific, Serum and submitting a new sample for testing orby calling the lab to add this test to the current sample. Urine Albumin 24 Hours 33.2 % . [facility] Urine Vunus-7-Flnvicsr 4.3 % . [facility] Urine Fkqvv-9-Txghbfjzn 16.0 % . [facility] Urine Beta Globulin 36.7 % . [facility] Urine Gamma Globulin 9.8 % . [facility] Urine IEP M-Krystian % 24 Hr 21.1 % High Not Observed [facility] Urine Random Prot Electrophor Note See comment . [facility] Comment on above: Protein electrophore sis scan will follow via computer, mail, or golf club weighter delivery. Protein electrophore sis scan will follow via computer,mail, or golf club weighter delivery. 33.2 % . [facility] 4.3 % . [facility] 16.0 % . [facility] 36.7 % . [facility] 9.8 % . [facility] 21.1 % High Not Observed [facility] See comment . [facility] Protein [Mass/time] in 24 ho ur UrineOrdered By: Louis Bradley on 06-09-2021 Protein (24H U) [Mass/Time] 125 mg/24 hr 30-150 [facility] Protein (24H U) [Mass/Time] Protein [Mass/time] in 24 hour Urine 30-150 [facility] Protein [Mass/volume] in Uri neOrdered By: Louis Bradley on 06-09-2021 Protein (U) [Mass/Vol] 8.5 mg/dL Not Estab. [facility] Protein.monoclonal [Mass/ruddy e] in 24 hour Urine by ElectrophoresisOrdered By: Louis Bradley on 06-09-2021 Protein.monoclonal Elph (24H U) [Mass/Time] 26.5 mg/24 hr High Not Observed [facility] Protein.monoclonal Elph (24H U) [Mass/Time] Protein.monoclonal [Mass/time] in 24 hour Urine by Electrophoresis High Not Observed [facility] Urine volume measurementOrde red By: Louis Bradley on 06-09-2021 Specimen volume (U) 1475 ml [facility] Specimen volume (U) Urine volume measurement [facility] Urine culture routineon 02-12 Bacteria identified Cx Nom (U) Pseudomonas aeruginosa [facility] Automated epithelial cells c ount in urine sediment (number/area)on 02-24-2021 Epithelial cells Auto (Urine sed) [#/Area] 0-1 [HPF] 0-2 [facility] Automated erythrocytes count in urine sediment (number/area)on 02-24-2021 RBC Auto (Urine sed) [#/Area] Innumerable [HPF] 0-4 [facility] Automated leukocytes count i n urine sediment (number/area)on 02-24-2021 WBC Auto (Urine sed) [#/Area] 0-1 [HPF] 0-4 [facility] Automated urine specific gra vity by refractometryon 02-24-2021 Specific gravity Refractometry automated (U) [Rel density] 1.009 1.001-1.03 0 [facility] Comment on above: Rechecked by refract ometer Bacteria identified Cx Nom ( U)on 02-24-2021 Pseudomonas aeruginosa Abnormal [facility] Bilirubin Test strip Ql (U)o n 02-24-2021 Bilirubin Ql (U) See comment Negative [facility] Comment on above: Unable to obtain acc urate result due to color interference. Color Auto (U)on 02-24-2021 Color (U) Red Yellow [facility] Creatinine [Mass/volume] in Urineon 02-24-2021 Creatinine (U) [Mass/Vol] 77.2 mg/dL [facility] Comment on above: No reference range e stablished Ketones Auto test strip (U) [Mass/Vol]on 02-24-2021 Ketones (U) [Mass/Vol] See comment Negative [facility] Comment on above: Unable to obtain acc urate result due to color interference. Nitrite Test strip Ql (U)on 02-24-2021 Nitrite Ql (U) See comment Negative [facility] Comment on above: Unable to obtain acc urate result due to color interference. Protein Auto test strip (U) [Mass/Vol]on 02-24-2021 Protein (U) [Mass/Vol] See comment Negative [facility] Comment on above: Unable to obtain acc urate result due to color interference. Urine bacteria detection by automated methodon 02-24-2021 Bacteria Auto Ql (U) None seen None Seen [facility] Urine clarity by refractomet ry automatedon 02-24-2021 Clarity Refractometry automated (U) Turbid Clear [facility] Urine culture routineon 02-12 Bacteria identified Cx Nom (U) Pseudomonas aeruginosa Abnormal [facility] Bacteria identified Cx Nom (U) Pseudomonas aeruginosa Abnormal [facility] Urine glucose measurement by automated test strip (mass/volume)on 02-24-2021 Glucose Auto test strip (U) [Mass/Vol] See comment Normal [facility] Comment on above: Unable to obtain acc urate result due to color interference. Urine hemoglobin detection b y automated test stripon 02-24-2021 Hemoglobin Auto test strip Ql (U) See comment Negative [facility] Comment on above: Unable to obtain acc urate result due to color interference. Urine leukocyte esterase det ection by automated test stripon 02-24-2021 Leukocyte esterase Auto test strip Ql (U) See comment Negative [facility] Comment on above: Unable to obtain acc urate result due to color interference. Urine protein/creatinine rat ioon 02-24-2021 Protein/Creatinine (U) [Ratio] 2098 mg/g{Cre} High 0-200 [facility] Urobilinogen Auto test strip (U) [Mass/Vol]on 02-24-2021 Urobilinogen (U) [Mass/Vol] See comment Normal [facility] Comment on above: Unable to obtain acc urate result due to color interference. pH Auto test strip (U)on pH (U) See comment 5.0-9.0 [facility] Comment on above: Unable to obtain acc urate result due to color interference. Laboratory - Chemistry and C hemistry - challengeon 10-28-2020 Cobalamin (Vitamin B12) [Mass/Vol] 506 pg/mL 180-914 [facility] Laboratory - Hematology and Cell countson 10-28-2020 WBC (Bld) [#/Vol] 10.0 10*3/uL 4.5-11.0 [facility] No Panel Informationon 10-28 10.0 10*3/uL 4.5-11.0 [facility] 506 pg/mL 180-914 [facility] Laboratory - Microbiology an d Antimicrobial susceptibilityon 02-13-2020 Bacteria identified Cx Nom (U) [facility] Laboratory - Urinalysison Hyaline casts LM Ql (Urine sed) 0-8 [LPF] 0-8 [facility] Urine culture routineon Bacteria identified Cx Nom (U) bacilli - 1 Day [place] [facility] Serum intrinsic factor block ing antibody detection by radioimmunoassay (MAGGIE)on 02-28-2019 Intrinsic factor blocking Ab MAGGIE Ql (S) 0.9 AU/mL 0.0-1.1 [facility] Comment on above: Performed at: [facility] [address] [id number] Car Unloader: Britton Valente MD, Phone: [phone] Performed at: [facility] [address] [id number] Director: Britton Valente MD, Phone: [phone] Intrinsic factor blocking Ab MAGGIE Ql (S) Serum intrinsic factor blocking antibody detection by radioimmunoassay (MAGGIE) 0.0-1.1 [facility] Serum parietal cell antibody assay (units/volume)on 02-28-2019 Parietal cell Ab Qn (S) 1.9 Units 0.0-20.0 [facility] Comment on above: Negative 0.0 - 20.0 Equivocal 20.1 - 24.9 Positive >24.9 Parietal Cell Antibodies are found in 90% of patients with pernicious anemia and 30% of first degree relatives with pernicious anemia. Performed at: [facility] [id number] Car Unloader: Elpidio Delgado PhD, Phone: [phone] Negative 0.0 - 20.0 Equivocal 20.1 - 24.9 Positive >24.9Parietal Cell Antibodies are found in 90% of patientswith pernicious anemia and 30% of first degreerelatives with pernicious anemia.Performed at: - [facility] [address] [id number] Director: Elpidio Delgado PhD, Phone: [phone] Parietal cell Ab Qn (S) Serum parietal c ell antibody assay (units/volume) 0.0-20.0 [facility] Glucose Glucometer (BldC) [M ass/Vol]on 01-02-2019 Glucose [Mass/Vol] 133 mg/dL [facility] Comment on above: Random Glucose Refer ence Range is dependent on time and content of last meal. Glucose of more than 200 mg/dL in a nonstressed, ambulatory subject supports the diagnosis of Diabetes Mellitus. Glucose [Mass/Vol] Capillary blood gluc ose measurement by glucometer (mass/volume) [facility] Glucose mean value [Mass/vol ume] in Blood Estimated from glycated hemoglobinon 01-02-2019 Average glucose Estimated from glycated hemoglobin (Bld) [Mass/Vol] 183 mg/dL [facility] HbA1c (Bld)on 01-02-2019 HbA1c (Bld) [Mass fraction] 8.0 % 4.3-5.6 [facility] Comment on above: Increased risk for d iabetes: 5.7 - 6.4 diabetes: >6.4 glycemic control for adults with diabetes: <7.0 Increased risk for d iabetes: 5.7 - 6.4diabetes: >6.4glycemic control for adults with diabetes: <7.0 IgA [Mass/volume] in Serum o r Plasmaon 10-13-2018 IgA [Mass/Vol] 65 mg/dL 64-422 [facility] IgA [Mass/Vol] IgA [Mass/volume] in Serum or Plasma 64-422 [facility] IgG [Mass/volume] in Serum o r Plasmaon 10-13-2018 IgG [Mass/Vol] 487 mg/dL Low 700-1600 [facility] IgG [Mass/Vol] IgG [Mass/volume] in Serum or Plasma Low 700-1600 [facility] IgM [Mass/volume] in Serum o r Plasmaon 10-13-2018 IgM [Mass/Vol] 38 mg/dL 26-217 [facility] Comment on above: Performed at: [facility] [address] [place], [place] [id number] Car Unloader: Elpidio Delgado PhD, Phone: [phone] Performed at: [facility] [facility] [id number] [place], [place] [id number] Director: Elpidio Delgado PhD, Phone: [phone] IgM [Mass/Vol] IgM [Mass/volume] in Serum or Plasma 26-217 [facility] Serum or plasma 25-hydroxyca lciferol measurement (mass/volume)on 09-15-2017 25-hydroxyvitamin D2 [Mass/Vol] <1.0 ng/mL . [facility] 25-hydroxyvitamin D2 [Mass/Vol] Serum or plasma 25-hydroxycalciferol measurement (mass/volume) . [facility] Serum or plasma calcidiol me asurement (mass/volume)on 09-15-2017 25-hydroxyvitamin D3 [Mass/Vol] 65 ng/mL . [facility] Comment on above: Performed at: [facility] [address] [place], [place] [id number] Car Unloader: Marcelino Estes MD, Phone: [phone] Performed at: [facility] [address] [place], [place] [id number] Director: Marcelino Estes MD, Phone: [phone] 25-hydroxyvitamin D3 [Mass/Vol] Serum or plasma calcidiol measurement (mass/volume) . [facility] Vital Signs Date Time Vital Sign Value Performing Clinician Facility 01-02-2025 10:30-0500 Diastolic blood pressure 71 mm[Hg] Curt Clark MD Work Phone: [facility] 01-02-2025 10:30-0500 Heart rate 86 /min Curt Clark MD Work Phone: [facility] 01-02-2025 10:30-0500 Respiratory rate 22 /min Curt Clark MD Work Phone: [facility] 01-02-2025 10:30-0500 SaO2% (BldA) [Mass fraction] 97 % Curt Clark MD Work Phone: [facility] 01-02-2025 10:30-0500 Systolic blood pressure 157 mm[Hg] Curt Clark MD Work Phone: [facility] 01-02-2025 08:05-0500 Inhaled oxygen flow rate 2 L/min Curt Clark MD Work Phone: [facility] 01-02-2025 08:02-0500 Body height 162.56 cm Curt Clark MD Work Phone: [facility] 01-02-2025 08:02-0500 Body weight 87.1 kg Curt Clark MD Work Phone: [facility] 12-26-2024 11:09-0500 Body height 167.64 cm Curt Clark MD Work Phone: [facility] 12-26-2024 11:09-0500 Body mass index (BMI) [Ratio] 29.5 kg/m2 Curt Clark MD Work Phone: [facility] 12-26-2024 11:09-0500 Body weight 83.09 kg Curt Clark MD Work Phone: [facility] 12-26-2024 11:09-0500 Diastolic blood pressure 60 mm[Hg] Curt Clark MD Work Phone: [facility] 12-26-2024 11:09-0500 Heart rate 73 /min Curt Clark MD Work Phone: [facility] 12-26-2024 11:09-0500 SaO2% (BldA) [Mass fraction] 97 % Curt Clark MD Work Phone: [facility] 12-26-2024 11:09-0500 Systolic blood pressure 122 mm[Hg] Curt Clark MD Work Phone: [facility] 12-25-2024 14:40-0500 Body temperature 96.9 [degF] Curt Clark MD Work Phone: [facility] 12-25-2024 14:40-0500 Body weight 83.46 kg Curt Clark MD Work Phone: [facility] 12-25-2024 14:40-0500 Diastolic blood pressure 68 mm[Hg] Curt Clark MD Work Phone: [facility] 12-25-2024 14:40-0500 Heart rate 91 /min Curt Clark MD Work Phone: [facility] 12-25-2024 14:40-0500 Respiratory rate 18 /min Curt Clark MD Work Phone: [facility] 12-25-2024 14:40-0500 SaO2% (BldA) [Mass fraction] 98 % Curt Clark MD Work Phone: [facility] 12-25-2024 14:40-0500 Systolic blood pressure 101 mm[Hg] Curt Clark MD Work Phone: [facility] 12-22-2024 08:00-0500 Body temperature 97.7 [degF] Curt Clark MD Work Phone: [facility] 12-22-2024 08:00-0500 Diastolic blood pressure 75 mm[Hg] Curt Clark MD Work Phone: [facility] 12-22-2024 08:00-0500 Heart rate 89 /min Curt Clark MD Work Phone: [facility] 12-22-2024 08:00-0500 Respiratory rate 16 /min Curt Clark MD Work Phone: [facility] 12-22-2024 08:00-0500 SaO2% (BldA) [Mass fraction] 98 % Curt Clark MD Work Phone: [facility] 12-22-2024 08:00-0500 Systolic blood pressure 109 mm[Hg] Curt Clark MD Work Phone: [facility] 12-22-2024 06:00-0500 Body weight 90 kg Curt Clark MD Work Phone: [facility] 12-20-2024 13:23-0500 Body height 167.64 cm Curt Clark MD Work Phone: [facility] 12-19-2024 18:01-0500 Diastolic blood pressure 71 mm[Hg] Curt Clark MD Work Phone: [facility] 12-19-2024 18:01-0500 Heart rate 94 /min Curt Clark MD Work Phone: [facility] 12-19-2024 18:01-0500 Respiratory rate 16 /min Curt Clark MD Work Phone: [facility] 12-19-2024 18:01-0500 SaO2% (BldA) [Mass fraction] 94 % Curt Clark MD Work Phone: [facility] 12-19-2024 18:01-0500 Systolic blood pressure 159 mm[Hg] Curt Clark MD Work Phone: [facility] 12-19-2024 14:28-0500 Body temperature 97.8 [degF] Curt Clark MD Work Phone: [facility] 12-19-2024 11:47-0500 Body height 167.64 cm Curt Clark MD Work Phone: [facility] 12-19-2024 11:47-0500 Body weight 192.5 kg Curt Clark MD Work Phone: [facility] 12-07-2024 15:42-0500 Body height 162.6 cm [facility] 12-07-2024 15:42-0500 Body mass index (BMI) [Ratio] 32.27 kg/m2 [facility] 12-07-2024 15:42-0500 Body weight 85.28 kg [facility] 12-07-2024 15:42-0500 Diastolic blood pressure 56 mm[Hg] [facility] 12-07-2024 15:42-0500 Heart rate 86 /min [facility] 12-07-2024 15:42-0500 Systolic blood pressure 120 mm[Hg] [facility] 11-28-2024 14:02-0500 Diastolic blood pressure 61 mm[Hg] Curt Clark MD Work Phone: [facility] 11-28-2024 14:02-0500 Heart rate 79 /min Curt Clark MD Work Phone: [facility] 11-28-2024 14:02-0500 Systolic blood pressure 125 mm[Hg] Curt Clark MD Work Phone: [facility] 11-01-2024 13:40-0500 Body height 162.6 cm Elicia Rhodes MD Work Phone: [facility] 11-01-2024 13:40-0500 Body mass index (BMI) [Ratio] 32.96 kg/m2 Elicia Rhodes MD Work Phone: [facility] 11-01-2024 13:40-0500 Body weight 87.09 kg Elicia Rhodes MD Work Phone: [facility] 11-01-2024 13:40-0500 Diastolic blood pressure 60 mm[Hg] Elicia Rhodes MD Work Phone: [facility] 11-01-2024 13:40-0500 Heart rate 84 /min Elicia Rhodes MD Work Phone: [facility] 11-01-2024 13:40-0500 Systolic blood pressure 102 mm[Hg] Elicia Rhodes MD Work Phone: [facility] 10-30-2024 14:04-0500 Body height 167.64 cm Curt Clark MD Work Phone: [facility] 10-30-2024 14:04-0500 Body mass index (BMI) [Ratio] 31.1 kg/m2 Curt Clark MD Work Phone: [facility] 10-30-2024 14:04-0500 Body weight 87.54 kg Curt Clark MD Work Phone: [facility] 10-30-2024 14:04-0500 Diastolic blood pressure 71 mm[Hg] Curt Clark MD Work Phone: [facility] 10-30-2024 14:04-0500 Heart rate 83 /min Curt Clark MD Work Phone: [facility] 10-30-2024 14:04-0500 Systolic blood pressure 112 mm[Hg] Curt Clark MD Work Phone: [facility] 09-19-2024 15:07-0500 Body height 167.64 cm MD Curt Clark Work Phone: [facility] 09-19-2024 11:38-0500 Body temperature 98 [degF] MD Curt Clark Work Phone: [facility] 09-19-2024 11:38-0500 Diastolic blood pressure 76 mm[Hg] MD Curt Clark Work Phone: [facility] 09-19-2024 11:38-0500 Heart rate 86 /min MD Curt Clark Work Phone: [facility] 09-19-2024 11:38-0500 SaO2% (BldA) [Mass fraction] 98 % MD Curt Clark Work Phone: [facility] 09-19-2024 11:38-0500 Systolic blood pressure 128 mm[Hg] MD Curt Clark Work Phone: [facility] 09-19-2024 07:31-0500 Respiratory rate 20 /min MD Curt Clark Work Phone: [facility] 09-19-2024 05:34-0500 Body weight 90.3 kg MD Curt Clark Work Phone: [facility] 09-18-2024 00:38-0500 Diastolic blood pressure 57 mm[Hg] MD Curt Clark Work Phone: [facility] 09-18-2024 00:38-0500 Heart rate 90 /min MD Curt Clark Work Phone: [facility] 09-18-2024 00:38-0500 Respiratory rate 20 /min MD Curt Clark Work Phone: [facility] 09-18-2024 00:38-0500 SaO2% (BldA) [Mass fraction] 96 % MD Curt Clark Work Phone: [facility] 09-18-2024 00:38-0500 Systolic blood pressure 131 mm[Hg] MD Curt Clark Work Phone: [facility] 09-17-2024 20:43-0500 Body height 167.64 cm MD Curt Clark Work Phone: [facility] 09-17-2024 20:43-0500 Body temperature 98.2 [degF] MD Curt Clark Work Phone: [facility] 09-17-2024 20:43-0500 Body weight 89.25 kg MD Curt Clark Work Phone: [facility] 08-20-2024 10:48-0400 Body mass index (BMI) [Ratio] 31 kg/m2 MD Curt Clark Work Phone: [facility] 08-20-2024 10:48-0400 Diastolic blood pressure 68 mm[Hg] MD Curt Clark Work Phone: [facility] 08-20-2024 10:48-0400 Systolic blood pressure 164 mm[Hg] MD Curt Clark Work Phone: [facility] 08-20-2024 10:25-0400 Body height 171.45 cm MD Curt Clark Work Phone: [facility] 08-20-2024 10:25-0400 Body weight 91.22 kg MD Curt Clark Work Phone: [facility] 08-20-2024 10:25-0400 Heart rate 70 /min MD Curt Clark Work Phone: [facility] 08-20-2024 10:25-0400 Respiratory rate 16 /min MD Curt Clark Work Phone: [facility] 08-20-2024 10:25-0400 SaO2% (BldA) [Mass fraction] 97 % MD Curt Clark Work Phone: [facility] 08-17-2024 15:22-0400 Body height 172.09 cm MD Curt Clark Work Phone: [facility] 08-17-2024 15:22-0400 Body mass index (BMI) [Ratio] 30.6 kg/m2 MD Curt Clark Work Phone: [facility] 08-17-2024 15:22-0400 Body temperature 98.2 [degF] MD Curt Clark Work Phone: [facility] 08-17-2024 15:22-0400 Body weight 90.71 kg MD Curt Clark Work Phone: [facility] 08-17-2024 15:22-0400 Diastolic blood pressure 76 mm[Hg] MD Curt Clark Work Phone: [facility] 08-17-2024 15:22-0400 Heart rate 78 /min MD Curt Clark Work Phone: [facility] 08-17-2024 15:22-0400 Respiratory rate 20 /min MD Curt Clark Work Phone: [facility] 08-17-2024 15:22-0400 SaO2% (BldA) [Mass fraction] 97 % MD Curt Clark Work Phone: [facility] 08-17-2024 15:22-0400 Systolic blood pressure 180 mm[Hg] MD Curt Clark Work Phone: [facility] 07-05-2024 13:06-0400 Body height 172.09 cm MD Curt Clark Work Phone: [facility] 07-05-2024 13:06-0400 Body mass index (BMI) [Ratio] 30.3 kg/m2 MD Curt Clark Work Phone: [facility] 07-05-2024 13:06-0400 Body temperature 96.9 [degF] MD Curt Clark Work Phone: [facility] 07-05-2024 13:06-0400 Body weight 89.81 kg MD Curt Clark Work Phone: [facility] 07-05-2024 13:06-0400 Diastolic blood pressure 84 mm[Hg] MD Curt Clark Work Phone: [facility] 07-05-2024 13:06-0400 Heart rate 79 /min MD Curt Clark Work Phone: [facility] 07-05-2024 13:06-0400 Respiratory rate 16 /min MD Curt Clark Work Phone: [facility] 07-05-2024 13:06-0400 SaO2% (BldA) [Mass fraction] 97 % MD Curt Clark Work Phone: [facility] 07-05-2024 13:06-0400 Systolic blood pressure 139 mm[Hg] MD Curt Clark Work Phone: [facility] 05-31-2024 11:10-0400 Body height 172.09 cm MD Curt Clark Work Phone: [facility] 05-31-2024 11:10-0400 Body mass index (BMI) [Ratio] 67.1 kg/m2 MD Curt Clark Work Phone: [facility] 05-31-2024 11:10-0400 Body mass index (BMI) [Ratio] 30.3 kg/m2 MD Curt Clark Work Phone: [facility] 05-31-2024 11:10-0400 Body weight 199 kg MD Curt Clark Work Phone: [facility] 05-31-2024 11:10-0400 Body weight 89.81 kg MD Curt Clark Work Phone: [facility] 05-31-2024 11:10-0400 Diastolic blood pressure 63 mm[Hg] MD Curt Clark Work Phone: [facility] 05-31-2024 11:10-0400 Heart rate 68 /min MD Curt Clark Work Phone: [facility] 05-31-2024 11:10-0400 Systolic blood pressure 151 mm[Hg] MD Curt Clark Work Phone: [facility] 04-17-2024 13:55-0400 Body height 162.6 cm Elicia Rhodes MD Work Phone: [facility] 04-17-2024 13:55-0400 Body mass index (BMI) [Ratio] 34.33 kg/m2 Elicia Rhodes MD Work Phone: [facility] 04-17-2024 13:55-0400 Body weight 90.72 kg Elicia Rhodes MD Work Phone: [facility] 04-17-2024 13:55-0400 Diastolic blood pressure 66 mm[Hg] Elicia Rhodes MD Work Phone: [facility] 04-17-2024 13:55-0400 Heart rate 68 /min Elicia Rhodes MD Work Phone: [facility] 04-17-2024 13:55-0400 Systolic blood pressure 128 mm[Hg] Elicia Rhodes MD Work Phone: [facility] 04-12-2024 09:27-0400 Body height 172.09 cm MD Curt Clark Work Phone: [facility] 04-12-2024 09:27-0400 Body mass index (BMI) [Ratio] 30.4 kg/m2 MD Curt Clark Work Phone: [facility] 04-12-2024 09:27-0400 Body weight 90.03 kg MD Curt Clark Work Phone: [facility] 04-12-2024 09:27-0400 Diastolic blood pressure 77 mm[Hg] MD Curt Clark Work Phone: [facility] 04-12-2024 09:27-0400 Heart rate 65 /min MD Curt Clark Work Phone: [facility] 04-12-2024 09:27-0400 Systolic blood pressure 166 mm[Hg] MD Curt Clark Work Phone: [facility] 01-27-2024 15:01-0400 Body temperature 97.8 [degF] MD Curt Clark Work Phone: [facility] 01-27-2024 15:01-0400 Body weight 90.71 kg MD Curt Clark Work Phone: [facility] 01-27-2024 15:01-0400 Diastolic blood pressure 76 mm[Hg] MD Curt Clark Work Phone: [facility] 01-27-2024 15:01-0400 Heart rate 64 /min MD Curt Clark Work Phone: [facility] 01-27-2024 15:01-0400 Respiratory rate 16 /min MD Curt Clark Work Phone: [facility] 01-27-2024 15:01-0400 SaO2% (BldA) [Mass fraction] 99 % MD Curt Clark Work Phone: [facility] 01-27-2024 15:01-0400 Systolic blood pressure 140 mm[Hg] MD Curt Clark Work Phone: [facility] 01-04-2024 10:59-0500 Body height 167 cm MD Curt Clakr Work Phone: [facility] 01-04-2024 10:59-0500 Body mass index (BMI) [Ratio] 32.5 kg/m2 MD Curt Clark Work Phone: [facility] 01-04-2024 10:59-0500 Body weight 90.88 kg MD Curt Clark Work Phone: [facility] 01-04-2024 10:59-0500 Diastolic blood pressure 77 mm[Hg] MD Curt Clark Work Phone: [facility] 01-04-2024 10:59-0500 Heart rate 71 /min MD Curt Clark Work Phone: [facility] 01-04-2024 10:59-0500 Respiratory rate 18 /min MD Curt Clark Work Phone: [facility] 01-04-2024 10:59-0500 SaO2% (BldA) [Mass fraction] 98 % MD Curt Clark Work Phone: [facility] 01-04-2024 10:59-0500 Systolic blood pressure 133 mm[Hg] MD Curt Clark Work Phone: [facility] 12-01-2023 11:00-0500 Body height 166.55 cm Curt Clark Other [facility] 12-01-2023 11:00-0500 Body mass index (BMI) [Ratio] 32.77 kg/m2 Curt Clark Other [facility] [employer] Other 12-01-2023 11:00-0500 Body weight 90.9 kg Curt Clark Other [facility] [employer] Other 12-01-2023 11:00-0500 Body weight 90.89 kg MD Curt Clark Work Phone: [facility] 12-01-2023 11:00-0500 Diastolic blood pressure 76 mm[Hg] Curt Clark Other [facility] 12-01-2023 11:00-0500 Systolic blood pressure 125 mm[Hg] Curt Clark Other [facility] 11-02-2023 10:34-0500 Body height 162.[address] 11-02-2023 10:34-0500 Body mass index (BMI) [Ratio] 33.3 kg/m2 [address] 11-02-2023 10:34-0500 Body weight [address] 11-02-2023 10:34-0500 Diastolic blood pressure 74 mm[Hg] [address] 11-02-2023 10:34-0500 Systolic blood pressure 140 mm[Hg] [address] 10-04-2023 14:04-0500 Body height 167.6 cm Elicia Rhodes MD Work Phone: [facility] 10-04-2023 14:04-0500 Body mass index (BMI) [Ratio] 31.31 kg/m2 Elicia Rhodes MD Work Phone: [facility] 10-04-2023 14:04-0500 Body weight 88 kg Elicia Rhodes MD Work Phone: [facility] 10-04-2023 14:04-0500 Diastolic blood pressure 68 mm[Hg] Elicia Rhodes MD Work Phone: [facility] 10-04-2023 14:04-0500 Heart rate 72 /min Elicia Rhodes MD Work Phone: [facility] 10-04-2023 14:04-0500 Systolic blood pressure 138 mm[Hg] Elicia Rhodes MD Work Phone: [facility] 09-26-2023 14:00-0500 Body height 166.55 cm Curt Clark Other [employer] Other 09-26-2023 14:00-0500 Body mass index (BMI) [Ratio] 31.43 kg/m2 Curt Clark Other [employer] [facility] Other 09-26-2023 14:00-0500 Body weight 87.18 kg Curt Clark Other [facility] Other 09-26-2023 14:00-0500 Diastolic blood pressure 73 mm[Hg] Curt Clark Other [employer] [facility] Other 09-26-2023 14:00-0500 SaO2% (BldA) [Mass fraction] 98 % Curt Clark Other [employer] [facility] Other 09-26-2023 14:00-0500 Systolic blood pressure 122 mm[Hg] Curt Clark Other [employer] [facility] Other 09-13-2023 15:45-0400 Body height 166.55 cm Curt Clark Other [employer] [facility] Other 09-13-2023 15:45-0400 Body mass index (BMI) [Ratio] 31.39 kg/m2 Curt Clark Other [employer] [facility] Other 09-13-2023 15:45-0400 Body temperature 97.1 [degF] Curt Clark Other [employer] [facility] Other 09-13-2023 15:45-0400 Body weight 87.09 kg Curt Clark Other [facility] Other 09-13-2023 15:45-0400 Diastolic blood pressure 75 mm[Hg] Curt Clark Other [facility] Other 09-13-2023 15:45-0400 Systolic blood pressure 148 mm[Hg] Curt Clark Other [employer] [facility] [employer] Other 08-31-2023 13:30-0400 Body height 166.55 cm Nehemias Fernandez II Other [employer] [facility] [employer] Other 08-31-2023 13:30-0400 Body mass index (BMI) [Ratio] 31.56 kg/m2 Nehemias Fernandez II Other [employer] [facility] Other 08-31-2023 13:30-0400 Body weight 87.54 kg Nehemias Fernandez II Other [employer] [facility] Other 07-19-2023 10:44-0400 Body height 167.64 cm MD Curt Clark Work Phone: [facility] 07-19-2023 10:40-0400 Body temperature 97.5 [degF] MD Curt Clark Work Phone: [facility] 07-19-2023 10:40-0400 Body weight 85.95 kg MD Curt Clark Work Phone: [facility] 07-19-2023 10:40-0400 Diastolic blood pressure 69 mm[Hg] MD Curt Clark Work Phone: [facility] 07-19-2023 10:40-0400 Heart rate 79 /min MD Curt Clark Work Phone: [facility] 07-19-2023 10:40-0400 Respiratory rate 20 /min MD Curt Clark Work Phone: [facility] 07-19-2023 10:40-0400 SaO2% (BldA) [Mass fraction] 98 % MD Curt Clark Work Phone: [facility] 07-19-2023 10:40-0400 Systolic blood pressure 134 mm[Hg] MD Curt Clark Work Phone: [facility] 06-24-2023 13:30-0400 Body height 166.55 cm Curt Clark Other [employer] Other 06-24-2023 13:30-0400 Body mass index (BMI) [Ratio] 30.58 kg/m2 Curt Clark Other [employer] Other 06-24-2023 13:30-0400 Body weight 84.82 kg Curt Clark Other [employer] Other 06-24-2023 13:30-0400 Diastolic blood pressure 79 mm[Hg] Curt Clark Other [employer] Other 06-24-2023 13:30-0400 SaO2% (BldA) [Mass fraction] 97 % Curt Clark Other [employer] Other 06-24-2023 13:30-0400 Systolic blood pressure 127 mm[Hg] Curt Clark Other [employer] Other 06-23-2023 11:20-0400 Body height 166.55 cm Akin Lopez Other [employer] Other 06-23-2023 11:20-0400 Body temperature 96.5 [degF] Akin Lopez Other [employer] Other 06-23-2023 11:20-0400 Diastolic blood pressure 82 mm[Hg] Akin Lopez Other [employer] Other 06-23-2023 11:20-0400 Respiratory rate 20 /min Akin Lopez Other [employer] Other 06-23-2023 11:20-0400 SaO2% (BldA) [Mass fraction] 98 % Akin Lopez Other [employer] Other 06-23-2023 11:20-0400 Systolic blood pressure 149 mm[Hg] Akin Lopez Other [employer] Other 04-26-2023 11:30-0400 Body height 166.37 cm Curt Clark Other [employer] Other 04-26-2023 11:30-0400 Body mass index (BMI) [Ratio] 31.13 kg/m2 Curt Clark Other [employer] Other 04-26-2023 11:30-0400 Body weight 86.18 kg Curt Clark Other [employer] Other 04-26-2023 11:30-0400 Diastolic blood pressure 68 mm[Hg] Curt Clark Other [employer] Other 04-26-2023 11:30-0400 Systolic blood pressure 109 mm[Hg] Curt Clark Other [employer] Other 03-23-2023 14:10-0400 Body height 167.64 cm Curt Clark Work Phone: [employer] 250 DO Work Phone: 03-23-2023 14:10-0400 Body mass index (BMI) [Ratio] 31.15 kg/m2 Curt Clark Work Phone: [employer] 250 DO Work Phone: 03-23-2023 14:10-0400 Body surface area Derived from formula 1.97 m2 Curt Clark Work Phone: [employer] 250 DO Work Phone: 03-23-2023 14:10-0400 Body weight 87.54 kg Curt Clark Work Phone: [employer] 250 DO Work Phone: 03-23-2023 14:10-0400 Diastolic blood pressure 68 mm[Hg] Curt Clark [facility]: [facility] [employer] 250 DO Work Phone: 03-23-2023 14:10-0400 Heart rate 68 /min Curt Clark Work Phone: [facility] [employer] 250 DO Work Phone: 03-23-2023 14:10-0400 Systolic blood pressure 102 mm[Hg] Curt Clark Work Phone: [facility] [employer] 250 DO Work Phone: 03-15-2023 12:00-0400 Body height 166.37 cm Curt Clark Other [employer] Other 03-15-2023 12:00-0400 Body mass index (BMI) [Ratio] 31.95 kg/m2 Curt Clark Other [employer] Other 03-15-2023 12:00-0400 Body weight 88.45 kg Curt Clark Other [employer] Other 03-15-2023 12:00-0400 Diastolic blood pressure 60 mm[Hg] Curt Clark Other [employer] Other 03-15-2023 12:00-0400 Systolic blood pressure 124 mm[Hg] Curt Clark Other [employer] Other 02-21-2023 11:06-0400 75.6 1 Curt Clark Work Phone: [facility] 250 DO Work Phone: Comment on above: [employer] 01-11-2023 10:37-0500 Body temperature 97.8 [degF] MD Curt Clark Work Phone: [facility] 01-11-2023 10:37-0500 Body weight 88.2 kg MD Curt Clark Work Phone: [facility] 01-11-2023 10:37-0500 Diastolic blood pressure 63 mm[Hg] MD Curt Clark Work Phone: [facility] 01-11-2023 10:37-0500 Heart rate 66 /min MD Curt Clark Work Phone: [facility] 01-11-2023 10:37-0500 Respiratory rate 16 /min MD Curt Clark Work Phone: [facility] 01-11-2023 10:37-0500 SaO2% (BldA) [Mass fraction] 97 % MD Curt Clark Work Phone: [facility] 01-11-2023 10:37-0500 Systolic blood pressure 139 mm[Hg] MD Curt Clark Work Phone: [facility] 01-10-2023 11:11-0500 Blood Pressure Location Tyree PARK [facility] 01-10-2023 11:11-0500 Diastolic blood pressure 84 mm[Hg] Tyree PARK [facility] 01-10-2023 11:11-0500 Heart rate 80 /min Tyree PARK [facility] 01-10-2023 11:11-0500 Respiratory rate 16 /min Tyree PARK [facility] 01-10-2023 11:11-0500 Systolic blood pressure 136 mm[Hg] Tyree PARK [facility] 12-22-2022 12:40-0500 Body height 166.37 cm Akin Lopez Other [employer] Other 12-22-2022 12:40-0500 Body mass index (BMI) [Ratio] 31.53 kg/m2 Akin Lopez Other [employer] Other 12-22-2022 12:40-0500 Body temperature 96.5 [degF] Akin Lopez Other [employer] Other 12-22-2022 12:40-0500 Body weight 87.27 kg Akin Lopez Other [employer] Other 12-22-2022 12:40-0500 Diastolic blood pressure 78 mm[Hg] Akin Lopez Other [employer] Other 12-22-2022 12:40-0500 Respiratory rate 18 /min Akin Lopez Other [employer] Other 12-22-2022 12:40-0500 SaO2% (BldA) [Mass fraction] 98 % Akin Lopez Other [employer] Other 12-22-2022 12:40-0500 Systolic blood pressure 122 mm[Hg] Akin Lopez Other [employer] Other 12-09-2022 11:45-0500 Body height 166.37 cm Curt Clark Other [employer] Other 12-09-2022 11:45-0500 Body mass index (BMI) [Ratio] 31.95 kg/m2 Curt Clark Other [employer] Other 12-09-2022 11:45-0500 Body weight 88.45 kg Curt Clark Other [employer] Other 12-09-2022 11:45-0500 Diastolic blood pressure 62 mm[Hg] Curt Clark Other [employer] [facility] [employer] Other 12-09-2022 11:45-0500 SaO2% (BldA) [Mass fraction] 96 % Curt Clark Other [employer] Other 12-09-2022 11:45-0500 Systolic blood pressure 128 mm[Hg] Curt Clark Other [facility] [employer] Other 07-13-2022 09:12-0400 Body weight 84.5 kg MD Curt Clark Work Phone: [facility] 07-13-2022 08:58-0400 Body height 167.64 cm MD Curt Clark Work Phone: [facility] 07-13-2022 08:58-0400 Body temperature 98.6 [degF] MD Curt Clark Work Phone: [facility] 07-13-2022 08:58-0400 Diastolic blood pressure 74 mm[Hg] MD Curt Clark Work Phone: [facility] 07-13-2022 08:58-0400 Heart rate 89 /min MD Curt Clark Work Phone: [facility] 07-13-2022 08:58-0400 Respiratory rate 18 /min MD Curt Clark Work Phone: [facility] 07-13-2022 08:58-0400 SaO2% (BldA) [Mass fraction] 97 % MD Curt Clark Work Phone: [facility] 07-13-2022 08:58-0400 Systolic blood pressure 126 mm[Hg] MD Curt Clark Work Phone: [facility] 07-07-2022 10:20-0400 Body height 167.64 cm Akin Lopez Other [employer] Other 07-07-2022 10:20-0400 Body mass index (BMI) [Ratio] 30.24 kg/m2 Akin Lopez Other [employer] Other 07-07-2022 10:20-0400 Body temperature 96.7 [degF] Akin Lopez Other [employer] Other 07-07-2022 10:20-0400 Body weight 85 kg Akin Lopez Other [employer] Other 07-07-2022 10:20-0400 Diastolic blood pressure 76 mm[Hg] Akin Lopez Other [employer] Other 07-07-2022 10:20-0400 Respiratory rate 18 /min Akin Lopez Other [employer] Other 07-07-2022 10:20-0400 SaO2% (BldA) [Mass fraction] 98 % Akin Lopez Other [employer] Other 07-07-2022 10:20-0400 Systolic blood pressure 132 mm[Hg] Akin Lopez Other [employer] Other 06-16-2022 14:48-0400 Body height 167.64 cm Curt Clark Work Phone: [place] [address] DO Work Phone: 06-16-2022 14:48-0400 Body mass index (BMI) [Ratio] 30.18 kg/m2 Curt Clark Work Phone: [facility] 250 DO Work Phone: 06-16-2022 14:48-0400 Body surface area Derived from formula 1.94 m2 Curt Clark Work Phone: [facility] 250 DO Work Phone: 06-16-2022 14:48-0400 Body weight 84.82 kg Curt Clark Work Phone: [facility] 250 DO Work Phone: 06-16-2022 14:48-0400 Diastolic blood pressure 58 mm[Hg] Curt Clark Work Phone: [facility] 250 DO Work Phone: 06-16-2022 14:48-0400 Heart rate 70 /min Curt Clark Work Phone: [facility] 250 DO Work Phone: 06-16-2022 14:48-0400 Systolic blood pressure 112 mm[Hg] Curt Clark Work Phone: [facility] 250 DO Work Phone: 03-08-2022 10:57-0400 Blood Pressure Location Tyree XAVIER [facility] 03-08-2022 10:57-0400 Diastolic blood pressure 52 mm[Hg] Tyree PARK [facility] 03-08-2022 10:57-0400 Heart rate 69 /min Tyree PARK [facility] 03-08-2022 10:57-0400 Systolic blood pressure 113 mm[Hg] Tyree PARK [facility] 01-14-2022 13:20-0500 Body height 167.64 cm Akin Lopez Other [employer] Other 01-14-2022 13:20-0500 Body mass index (BMI) [Ratio] 30.34 kg/m2 Akin Lopez Other [employer] Other 01-14-2022 13:20-0500 Body weight 85.28 kg Akin Lopez Other [employer] Other 01-14-2022 13:20-0500 Diastolic blood pressure 86 mm[Hg] Akin Lopez Other [employer] Other 01-14-2022 13:20-0500 Respiratory rate 18 /min Akin Lopez Other [employer] Other 01-14-2022 13:20-0500 SaO2% (BldA) [Mass fraction] 99 % Akin Lopez Other [employer] Other 01-14-2022 13:20-0500 Systolic blood pressure 146 mm[Hg] Akin Lopez Other [employer] Other 09-30-2021 11:40-0500 Body height 167.64 cm Aikn Lopez Other [employer] Other 09-30-2021 11:40-0500 Body mass index (BMI) [Ratio] 31.12 kg/m2 Akin Lopez Other [employer] Other 09-30-2021 11:40-0500 Body temperature 96.7 [degF] Akin Lopez Other [employer] Other 09-30-2021 11:40-0500 Body weight 87.45 kg Akin Lopez Other [employer] Other 09-30-2021 11:40-0500 Diastolic blood pressure 72 mm[Hg] Akin Lopez Other [employer] Other 09-30-2021 11:40-0500 Respiratory rate 18 /min Akin Lopez Other [employer] Other 09-30-2021 11:40-0500 SaO2% (BldA) [Mass fraction] 96 % Akin Lopez Other [employer] Other 09-30-2021 11:40-0500 Systolic blood pressure 111 mm[Hg] Akin Lopez Other [employer] Other 09-22-2021 10:38-0500 89.4 1 Curt Clark Work Phone: [employer] 250 DO Work Phone: Comment on above: FSL 08-25-2021 14:44-0400 Body height 167.64 cm Curt Clark Work Phone: [employer] 250 DO Work Phone: 08-25-2021 14:44-0400 Body mass index (BMI) [Ratio] 30.67 kg/m2 Curt Clark Work Phone: [facility] 250 DO Work Phone: 08-25-2021 14:44-0400 Body surface area Derived from formula 1.96 m2 Curt Clark Work Phone: [facility] 250 DO Work Phone: 08-25-2021 14:44-0400 Body weight 86.18 kg Curt Clark Work Phone: [facility] 250 DO Work Phone: 08-25-2021 14:44-0400 Diastolic blood pressure 74 mm[Hg] Curt Clark Work Phone: [facility] 250 DO Work Phone: 08-25-2021 14:44-0400 Heart rate 68 /min Curt lCark Work Phone: [facility] 250 DO Work Phone: 08-25-2021 14:44-0400 Systolic blood pressure 126 mm[Hg] Curt Clark Work Phone: [facility] 250 DO Work Phone: Encounters Encounter Date Encounter Type Care Provider Facility Start: 01-14-2025 ambulatory Tyree Ulloa ty:[facility] Start: 01-02-2025 End: 01-02-2025 Curt Clark MD Work Phone: [facility] Work Phone: Start: 01-02-2025 End: 01-02-2025 ambulatory Curt Clark MD Work Phone: [facility] Work Phone: Start: 12-31-2024 Curt Ferguson Work Phone[facility] Work Phone: Start: 12-26-2024 End: 12-26-2024 ambulatory Curt Clark MD Work Phone: [facility] Work Phone: Start: 12-26-2024 End: 12-26-2024 Curt Clark MD Work Phone: [facility] Work Phone: Start: 12-25-2024 End: 12-25-2024 ambulatory Curt Clark MD Work Phone: [facility] Work Phone: Start: 12-25-2024 End: 12-25-2024 Curt Clark MD Work Phone: [facility] Work Phone: Start: 12-25-2024 Curt Ferguson Work Phone: [facility] Work Phone: Start: 12-24-2024 Curt Ferguson Work Phone: [facility] Work Phone: Start: 12-20-2024 Curt Ferguson Work Phone: [facility] Work Phone: Start: 12-19-2024 End: 12-22-2024 Evaluation and management of inpatient Curt Clark MD Work Phone: [facility] Work Phone: Start: 12-19-2024 End: 12-22-2024 Curt Clark MD Work Phone: [facility] [place] [facility] Work Phone: Start: 12-12-2024 Curt Ferguson Work Phone: [facility] Acute Work Phone: Start: 12-12-2024 ambulatory Curt Clark Facility :[facility] Start: 12-07-2024 End: 12-07-2024 Professional / ancillary services management [facility] Start: 12-07-2024 End: 12-07-2024 ambulatory [facility] Start: 11-28-2024 End: 11-28-2024 ambulatory Curt Clark MD Work Phone: [facility] Work Phone: Start: 11-28-2024 End: 11-28-2024 Patient encounter procedure Curt Clark MD Work Phone: [facility] Work Phone: Start: 11-28-2024 End: 11-28-2024 Curt Clark MD Work Phone: [facility] Work Phone: Start: 11-26-2024 Non-patient / Non-visit Curt Clark MD Work Phone: [facility] Work Phone: Start: 11-26-2024 Curt Ferguson Work Phone: [facility] Work Phone: Start: 11-24-2024 Non-patient / Non-visit Curt Clark MD Work Phone: [facility] Work Phone: Start: 11-24-2024 Curt Ferguson Work Phone: [facility] Work Phone: Start: 11-23-2024 Non-patient / Non-visit Curt Clark MD Work Phone: [facility] Work Phone: Start: 11-23-2024 Curt Ferguson Work Phone: [facility] Work Phone: Start: 11-22-2024 Non-patient / Non-visit Curt Clark MD Work Phone: [facility] Work Phone: Start: 11-22-2024 Curt Ferguson Work Phone: [facility] Work Phone: Start: 11-21-2024 Curt Ferguson Work Phone: [facility] Work Phone: Start: 11-21-2024 Non-patient / Non-visit Curt Clark MD Work Phone: [facility] Work Phone: Start: 11-21-2024 Curt Ferguson Work Phone: [facility] Work Phone: Start: 11-01-2024 End: 11-01-2024 Office outpatient visit 25 minutes Elicia Rhodes MD Work Phone: [facility] Comment on above: Persistent atrial fi brillation with RVR (Multi) (Primary Dx); Pulmonary hypertension (Multi); Mixed hyperlipidemia; Ascending aorta dilation (CMS-HCC); Essential hypertension; Stage 3a chronic kidney disease (Multi); Shortness of breath at rest; Gastrointestinal hemorrhage, unspecified gastrointestinal hemorrhage type; BMI 32.0-32.9,adult; Never smoked tobacco Start: 11-01-2024 End: 11-01-2024 ambulatory [facility] Start: 10-30-2024 End: 10-30-2024 Patient encounter procedure Curt Clark MD Work Phone: [facility] Work Phone: Start: 10-30-2024 End: 10-30-2024 Curt Clark MD Work Phone: [facility] Work Phone: Start: 10-23-2024 Non-patient / Non-visit Curt Clark MD Work Phone: [facility] Work Phone: Start: 10-23-2024 Curt Ferguson Work Phone: [facility] Work Phone: Start: 10-23-2024 End: 10-23-2024 Telephone [facility] Start: 10-22-2024 End: 10-22-2024 Orders Only Not In System Ref Prov [facility] Start: 10-14-2024 Non-patient / Non-visit Curt Clark MD Work Phone: [facility] Work Phone: Start: 10-14-2024 Curt Ferguson Work Phone: [facility] Work Phone: Start: 10-13-2024 Non-patient / Non-visit Curt Clark MD Work Phone: [facility] Work Phone: Start: 10-13-2024 Curt Ferguson Work Phone: [facility] Work Phone: Start: 10-12-2024 End: 10-12-2024 ambulatory Yuniel Huggins Facility:[facility] Start: 10-12-2024 End: 10-12-2024 Departed Referred Curt Clark MD Work Phone: [facility] Path [facility] Start: 10-12-2024 Non-patient / Non-visit Curt Clark MD Work Phone: [facility] Work Phone: Start: 10-12-2024 End: 10-12-2024 Curt Clark MD Work Phone: [facility] Start: 10-11-2024 Non-patient / Non-visit Curt Clark MD Work Phone: [facility] Work Phone: Start: 10-11-2024 Curt Ferguson Work Phone: [facility] Work Phone: Start: 10-10-2024 End: 10-14-2024 Non-patient / Non-visit Curt Clark MD Work Phone: [facility] Work Phone: Start: 10-10-2024 End: 10-14-2024 Curt Clark MD Work Phone: [facility] Work Phone: Start: 09-29-2024 Non-patient / Non-visit Curt Clark MD Work Phone: [facility] Work Phone: Start: 09-29-2024 Curt Ferguson Work Phone: [facility] Work Phone: Start: 09-19-2024 Non-patient / Non-visit MD Shannan Clark Work Phone: [facility] Work Phone: Start: 09-18-2024 Non-patient / Non-visit MD Shannan Clark Work Phone: [facility] Work Phone: Start: 09-18-2024 End: 09-19-2024 ambulatory Trent Yesenia Facility:[facility] Start: 09-18-2024 End: 09-19-2024 Evaluation and management of inpatient MD Curt Clark Work Phone: [facility] [place] [facility] Work Phone: Start: 09-18-2024 End: 09-19-2024 observation encounter MD Curt Clark Work Phone: [facility] Work Phone: Start: 09-14-2024 Non-patient / Non-visit Curt Clark MD Work Phone: [facility] Work Phone: Start: 09-14-2024 Non-patient / Non-visit MD Shannan Clark Work Phone: [facility] Work Phone: Start: 09-14-2024 End: 09-17-2024 Clinisync Result Encounter Temo PETERSON Work Phone: [facility] External [facility] Unsolicited Start: 09-14-2024 End: 09-17-2024 Clinisync Result Encounter Temo PETERSON Work Phone: [facility] External Department Unsolicited Start: 08-20-2024 End: 08-20-2024 ambulatory MD Curt Clark Work Phone: [facility] Work Phone: Start: 08-20-2024 End: 08-20-2024 Patient encounter procedure MD Curt Clark Work Phone: [facility] Work Phone: Start: 08-20-2024 Non-patient / Non-visit MD Shannan Clark Work Phone: [facility] Work Phone: Start: 08-17-2024 End: 08-17-2024 ambulatory MD Curt Clark Work Phone: [facility] Work Phone: Start: 08-17-2024 End: 08-17-2024 Patient encounter procedure MD Curt Clark [facility] Work Phone: Start: 08-01-2024 End: 08-02-2024 External Result Encounter Claire Choi DO Work Phone: [facility] External Department Unsolicited Start: 08-01-2024 End: 08-02-2024 External Result Encounter Claire Choi DO Work Phone: [facility] External Department Unsolicited Start: 08-01-2024 Registered Recurring MD Curt Clark Work Phone: [facility] Work Phone: Start: 07-05-2024 End: 07-05-2024 ambulatory MD Curt Clark Work Phone: [facility] Work Phone: Start: 07-05-2024 End: 07-05-2024 Patient encounter procedure MD Curt Clark Work Phone: [facility] Work Phone: Start: 06-27-2024 Non-patient / Non-visit MD Shannan Clark Work Phone: [facility] Work Phone: Start: 06-06-2024 Registered Recurring MD Curt Clark Work Phone: [facility] Work Phone: Start: 05-31-2024 End: 05-31-2024 ambulatory MD Curt Clark Work Phone: [facility] Work Phone: Start: 05-31-2024 End: 05-31-2024 Patient encounter procedure MD Curt Clark Work Phone: [facility] Work Phone: Start: 05-23-2024 Non-patient / Non-visit MD Shannan Clark Work Phone: [facility] Work Phone: Start: 04-25-2024 Registered Recurring MD Curt Clark Work Phone: [facility] Work Phone: Start: 04-17-2024 End: 04-17-2024 Office outpatient visit 25 minutes Elicia Rhodes MD Work Phone: [facility] Comment on above: Essential hypertensi on (Primary Dx); Persistent atrial fibrillation with RVR (Multi); Aortic valve regurgitation, nonrheumatic; Ascending aorta dilation (CMS-HCC); Mixed hyperlipidemia; Pulmonary hypertension (Multi); Stage 3a chronic kidney disease (Multi); Multiple myeloma, remission status unspecified (Multi); Shortness of breath at rest; BMI 34.0-34.9,adult; Never smoked tobacco Start: 04-17-2024 End: 04-17-2024 ambulatory [facility] Start: 04-12-2024 End: 04-12-2024 Departed Referred MD Curt Clark Work Phone: [facility] [place] Work Phone: Start: 04-12-2024 End: 04-12-2024 ambulatory MD Curt Clark Work Phone: [facility] Work Phone: Start: 04-12-2024 End: 04-12-2024 Patient encounter procedure MD Curt Clark Work Phone: [facility] Work Phone: Start: 03-14-2024 End: 03-14-2024 ambulatory ARTEMIO GRAJEDA Not Available Start: 02-28-2024 Registered Recurring MD Curt Clark [facility] Work Phone: Start: 02-15-2024 Non-patient / Non-visit MD Shannan Clark Work Phone: [facility] Work Phone: Start: 01-27-2024 End: 01-27-2024 ambulatory MD Curt Clark Work Phone: [facility] Work Phone: Start: 01-27-2024 End: 01-27-2024 Patient encounter procedure MD Curt Clark Work Phone: [facility] Work Phone: Start: 01-27-2024 Registered Recurring MD Curt Clark Work Phone: [facility] Work Phone: Start: 01-09-2024 End: 01-09-2024 ambulatory Tyree PARK Facility:[facility] Start: 01-04-2024 End: 01-04-2024 ambulatory MD Curt Clark Work Phone: [facility] Work Phone: Start: 01-04-2024 End: 01-04-2024 Patient encounter procedure MD Curt Clark Work Phone: [facility] Work Phone: Start: 12-27-2023 Non-patient / Non-visit MD Shannan Clark Work Phone: [facility] Work Phone: Start: 12-15-2023 Registered Recurring MD Curt Clark Work Phone: [facility] Work Phone: Start: 12-02-2023 End: 12-02-2023 ambulatory Curt Clark Other [employer] Other Start: 12-02-2023 Telephone encounter Curt Clark [facility] Start: 12-01-2023 End: 12-01-2023 ambulatory Curt Clark Other [employer] Other Start: 12-01-2023 Office outpatient vi sit 25 minutes Curt Clark [facility] [facility] Start: 12-01-2023 End: 12-01-2023 Patient encounter procedure MD Curt Clark Work Phone: [facility] Start: 11-02-2023 End: 11-02-2023 Subsequent hospital visit by physician Jodi Bell Echo/Vasc Room 2 [facility] Comment on above: Aortic valve regurgi tation, nonrheumatic; Ascending aorta dilation (CMS/HCC); Pulmonary hypertension (CMS/HCC) Start: 11-02-2023 End: 11-02-[address] [facility] Start: 10-17-2023 End: 10-17-2023 ambulatory Curt Clark Other [employer] Other Start: 10-17-2023 Telephone encounter Curt Clark [facility] Start: 10-13-2023 End: 10-13-2023 ambulatory Curt Clark Other [employer] Other Start: 10-13-2023 Telephone encounter Curt Clark [facility] Start: 10-04-2023 End: 10-04-2023 Office outpatient visit 25 minutes Elicia Rhodes MD Work Phone: [facility] Comment on above: Persistent atrial fi brillation with RVR (CMS/HCC) (Primary Dx); Aortic valve regurgitation, nonrheumatic; Ascending aorta dilation (CMS/HCC); Essential hypertension; Pulmonary hypertension (CMS/HCC); Stage 3a chronic kidney disease (CMS/HCC) Start: 09-26-2023 End: 09-26-2023 ambulatory Curt Clark Other [employer] Other Start: 09-26-2023 Office outpatient vi sit 15 minutes Curt Clark [facility] Start: 09-13-2023 End: 09-13-2023 ambulatory Curt Clark Other [employer] Other Start: 09-13-2023 Office outpatient vi sit 15 minutes Curt Clark [facility] Start: 08-31-2023 Office outpatient ne w 45 minutes Nehemias Fernandez II [facility] Start: 08-31-2023 End: 08-31-2023 ambulatory MD Curt Clark Work Phone: [facility] Work Phone: Start: 08-31-2023 End: 08-31-2023 Patient encounter procedure MD Curt Clark Work Phone: [facility] Start: 07-21-2023 Rx Renewal Curt Clark Work Phone: [facility] 250 DO Work Phone: Start: 07-19-2023 End: 07-19-2023 ambulatory MD Curt Clark Work Phone: [facility] Work Phone: Start: 07-19-2023 End: 07-19-2023 Registered Recurring MD Curt Clark Work Phone: [facility] Work Phone: Start: 07-19-2023 Registered Recurring MD Curt Clark Work Phone: [facility] Work Phone: Start: 07-15-2023 End: 07-15-2023 ambulatory Curt Clark Other [facility] [employer] Other Start: 07-15-2023 Telephone encounter Curt Clark [facility] Start: 07-08-2023 End: 07-08-2023 ambulatory Curt Clark Other [facility] [employer] Other Start: 07-08-2023 Telephone encounter Curt Clark [facility] Start: 07-04-2023 Rx Renewal Curt Clark Work Phone: [facility] 250 DO Work Phone: Start: 06-27-2023 End: 06-27-2023 ambulatory Curt Clark Other [employer] Other Start: 06-27-2023 Telephone encounter Curt Clark [facility] Start: 06-24-2023 End: 06-24-2023 ambulatory Curt Clark Other [employer] Other Start: 06-24-2023 Office outpatient vi sit 25 minutes Curt Clark [facility] Start: 06-23-2023 End: 06-23-2023 ambulatory Akin Lopez Other [employer] Other Start: 06-23-2023 Office outpatient vi sit 15 minutes Akin Lopez [facility] Start: 06-20-2023 End: 06-20-2023 ambulatory Curt Clark Other [employer] Other Start: 06-20-2023 Telephone encounter Curt Clark [facility] Start: 06-13-2023 Rx Renewal Curt Clark Work Phone: [facility] [employer] 250 DO Work Phone: Start: 05-04-2023 End: 05-04-2023 ambulatory Curt Clark Other [employer] Other Start: 05-04-2023 Telephone encounter Curt Clark [facility] Start: 04-26-2023 End: 04-26-2023 ambulatory Curt Clark Other [employer] Other Start: 04-26-2023 Office outpatient vi sit 25 minutes Curt Clark [facility] Start: 03-23-2023 Office outpatient vi sit 25 minutes Curt Clark Work Phone: [facility] [employer] 250 DO Work Phone: Start: 03-23-[address] Curt Clark Facility: Start: 03-16-2023 Telephone encounter Curt Clark [facility] Start: 03-16-2023 End: 03-17-[address] CURT CLARK [employer] Other Start: 03-15-2023 End: 03-15-2023 ambulatory Curt Clark Other [employer] Other Start: 03-15-2023 Office outpatient vi sit 15 minutes Curt Clark [facility] Start: 02-21-2023 End: 02-22-[address] ELICIA RHODES Facility:H1 Start: 01-11-2023 End: 01-11-2023 ambulatory MD Curt Clark Work Phone: [facility] Work Phone: Start: 01-11-2023 End: 01-11-2023 Registered Recurring MD Curt Clark Work Phone: [facility] Work Phone: Start: 01-10-2023 End: 01-10-2023 Patient encounter procedure Tyree PARK [facility] Start: 01-06-2023 End: 01-07-[address] CURT CLARK Facility:[facility]1 Start: 12-22-2022 End: 12-22-2022 ambulatory Akin Lopez Other [employer] Other Start: 12-22-2022 Office outpatient vi sit 25 minutes Akin Lopez [facility] Start: 12-14-2022 End: 12-15-2022 ambulatory AKIN LOPEZ Facility:[facility]1 Start: 12-09-2022 End: 12-09-2022 ambulatory Curt Clark Other [employer] Other Start: 12-09-2022 Office outpatient vi sit 25 minutes Curt Clark [facility] Start: 08-09-[address] CURT CLARK Facil ity:H1 Start: 07-13-2022 End: 07-13-2022 Registered Recurring MD Curt Clark [facility] Start: 07-12-2022 End: 07-13-2022 ambulatory CLAIRE CHOI Facility:[facility]1 Start: 07-07-2022 End: 07-07-2022 ambulatory Akin Lopez Other [facility] [employer] Other Start: 07-07-2022 Office outpatient vi sit 25 minutes Akin Lopez [facility] Start: 06-30-2022 End: 07-01-2022 ambulatory AKIN LOPEZ Facility:[facility]1 Start: 06-16-2022 Office outpatient vi sit 25 minutes Curt Clark Work Phone: [facility] 250 DO Work Phone: Start: 06-16-[address] Elicia Rhodes Facility:[id number] Start: 05-28-2022 End: 05-29-[address] CURT CLARK Facility:H1 Start: 05-25-2022 End: 05-25-[address] CURT CLARK Facility:H1 Start: 05-21-2022 End: 05-21-[address] CURT CLARK Facility:H1 Start: 04-14-2022 End: 04-15-[address] CURT CLARK Facility:H1 Start: 04-07-2022 End: 04-08-2022 ambulatory ZO KARLENE Facility:H1 Start: 03-08-2022 End: 03-08-2022 Patient encounter procedure Tyree PARK [facility] Start: 02-25-2022 Rx Renewal Curt Clark Work Phone: [facility] 250 DO Work Phone: Start: 02-23-2022 End: 02-23-2022 ambulatory Akin Lopez Other [facility] [employer] Other Start: 02-23-2022 Telephone encounter Akin Lopez [facility] Start: 01-14-2022 End: 01-14-2022 ambulatory Akin Lopez Other [facility] [employer] Other Start: 01-14-2022 Office outpatient vi sit 25 minutes Akin Lopez [facility] Start: 10-12-2021 Rx Renewal Curt Clark Work Phone: [facility] [employer] 250 DO Work Phone: Start: 09-30-2021 End: 09-30-2021 ambulatory Akin Lopez Other [facility] [employer] Other Start: 09-30-2021 Office outpatient vi sit 25 minutes Akin Lopez [facility] Start: 09-30-2021 Telephone encounter Akin Lopez [facility] Start: 08-25-2021 Office outpatient vi sit 25 minutes Curt Clark Work Phone: [facility] [employer] 250 DO Work Phone: Start: 07-02-2021 End: 07-02-2021 ambulatory Tondra Nigelus Other [facility] [employer] Other Start: 07-02-2021 Telephone encounter Tondra Mapus [facility] Procedures Date Procedure Procedure Detail Performing Clinician Start: 12-19-2024 End: 12-19-2024 Viral nucleic acid assay Curt Clark MD Work Phone: Start: 12-19-2024 Plain chest X-ray Anika Clark MD Work Phone: Start: 10-14-2024 MULTIPLE LABS Not In Sy stem Ref Prov Start: 10-12-2024 Level i surg patholo gy gross examination only Not In System Ref Prov Start: 09-17-2024 CT of head without contrast MD Curt Clark Work Phone: Start: 09-17-2024 Plain chest X-ray MD Julee Clark Work Phone: Start: 09-14-2024 Bacteria identified in Urine by Culture Temo Dayan Alfaro PA Work Phone: Start: 08-01-2024 Complete blood count with white cell differential, automated Claire Burgessrogeliopartha DO Work Phone: Start: 08-01-2024 Comprehensive metabolic panel Claire Hanley Steph DO Work Phone: Start: 04-12-2024 Urine culture MD Curt Clark Work Phone: Start: 11-02-2023 TRANSTHORACIC ECHO ( TTE) COMPLETE ELICIA RHODES Start: 11-02-2023 Echo tthrc r-t 2d w/ wom-mode compl spec&colr d Elicia Rhodes MD Work Phone: Start: 10-04-2023 Ecg routine ecg w/le ast 12 lds w/i&r Elicia Rhodes MD Work Phone: Start: 02-24-2021 Bacteria identified in Urine by Culture MD Curt Clark Work Phone: Start: 02-24-2021 Urine culture MD Curt Clark Work Phone: Start: 02-24-2021 Curt ramos MD Work Phone: Start: 02-19-2021 Lithotripsy Tyree CYNDI EVANS Start: 02-13-2020 Bacteria identified in Urine by Culture MD Curt Clark Work Phone: Start: 02-13-2020 Urine culture MD Curt Clark Work Phone: Start: 02-13-2020 Curt ramos MD Work Phone: Start: 01-24-2020 Extracorporeal shock wave lithotripsy of calculus of kidney Tyreemurali PARK Start: 10-16-2019 Echocardiography Start: 01-02-2019 CT [...] surgery Curt walton Work Phone: Cholecystectomy Tyree STERLING RS Excision of ganglion of wrist Tyree PARK Hemorrhoidectomy Curt walton Work Phone: Hemorrhoidectomy Tyree FARHANA ERS Hysterectomy Curt Clark Work Phone: Hysterectomy Tyree PARK Lithotripsy Curt Clark Work Phone: Operative procedure on foot Curt Clark Work Phone: Urine culture MD Curt forde Work Phone: Plan of Treatment Date Care Activity Detail Author Start: 05-15-2025 End: 05-15-2025 Patient encounter procedure 05/15/2025 2:40 PM EDT Office Visit [place] [id number] [facility] [address] [place] [address] Elicia Rhodes MD [address] [facility] [address] [place] [address] [facility] Start: 01-02-2025 [facility] Start: 12-22-2024 [facility] Start: 12-19-2024 Hospital admission [facility] Start: 12-19-2024 Referral to track grinder operator [facility] Start: 12-19-2024 [facility] Start: 11-20-2024 End: 11-20-2024 Patient encounter procedure [facility] Start: 11-08-2024 Glaucoma screening Diabetes: Retinopathy Screening [facility] Start: 10-15-2024 End: 10-15-2024 Patient encounter procedure 10/15/2024 11:20 AM EST Office Visit [place] [id number] [facility] [address] [place] [address] Elicia Rhodes MD [address] [facility] [place] [address] [facility] Start: 09-19-2024 [facility] Start: 09-19-2024 Administration of prophylactic treatment [facility] Start: 09-19-2024 End: 09-19-2024 Patient encounter procedure 09/19/2024 9:40 AM EST Office Visit [facility] [address] [place] [address] Artemio Grajeda NP [address] [place] [address] [facility] [address] Start: 09-18-2024 End: 09-18-2024 Referral to rehabilitation physician [facility] Start: 09-18-2024 End: 09-18-2024 [facility] Start: 09-18-2024 Physical therapy procedure [facility] Start: 09-18-2024 Referral to occupational therapist [facility] Start: 09-18-2024 End: 09-18-2024 [facility] Start: 09-18-2024 Hospital admission [facility] Start: 07-15-2024 Influenza vaccination [facility] Start: 04-17-2024 End: 04-17-2025 Lipid 1996 panel - Serum or Plasma Lipid Panel Lab Routine Mixed hyperlipidemia Expected: 04/17/2024 (Approximate), Expires: 04/17/2025 [facility] Service Area Work Phone: Comment on above: Expected: 04/17/2024 (Approximate), Expi res: 04/17/2025 Start: 04-17-2024 End: 04-17-2024 Patient encounter procedure 04/17/2024 1:40 PM EDT Office Visit [facility] [address] [facility] [address] [place] [address] Elicia Rhodes MD [address] [facility] [address] [place] [address] [facility] Start: 04-13-2024 Bacteria identified in Urine by Culture [facility] Start: 04-12-2024 Bacteria identified in Urine by Culture [facility] Start: 11-08-2023 Glaucoma screening Diabetes: Retinopathy Screening [facility] Start: 11-02-2023 End: 11-02-2023 Patient encounter procedure 11/02/2023 10:45 AM EST Appointment [facility] [address] [facility] [address] [place] [address] [facility] Start: 10-04-2023 FUV, Provider: Elicia Rhodes, Status: Pen, Time: 2:10 PM FUV, Provider: Elicia Rhodes, Status: Pen, Time: 2:[address] [facility] 250 DO Work Phone: Start: 10-04-2023 End: 10-04-2025 Heart Transthoracic Transthoracic Echo (TTE) Complete Echocardiography Routine Aortic valve regurgitation, nonrheumatic Ascending aorta dilation (CMS/HCC) Pulmonary hypertension (CMS/HCC) Expected: 10/04/2023 (Approximate), Expires: 10/04/2025 [facility] Service Area Work Phone: Comment on above: Expected: 10/04/2023 (Approximate), Expi res: 10/04/2025 Start: 07-19-2023 [facility] Start: 07-15-2023 Influenza vaccination Influenza Vaccine (#1) [facility] Start: 03-23-2023 FUV, Provider: Elicia Rhodes, Status: Pen, Time: 2:20 PM FUV, Provider: Elicia Rhodes, Status: Pen, Time: 2:[address] [facility] 250 DO Work Phone: Start: 01-04-2023 [facility] Start: 08-23-2022 [facility] Start: 08-17-2022 End: 08-17-2022 [facility] Start: 07-13-2022 [facility] Start: 06-28-2022 [facility] Start: 05-31-2022 [facility] Start: 05-26-2022 [facility] Start: 05-25-2022 FUV, Provider: Elicia Rhodes, Status: Pen, Time: 2:20 PM [facility] 250 DO Work Phone: Start: 04-13-2022 [facility] Start: 03-02-2022 [facility] Start: 01-18-2022 [facility] Start: 01-18-2022 [facility] Start: 01-18-2022 End: 01-18-2022 [facility] Start: 01-18-2022 [facility] Start: 01-11-2022 [facility] Start: 12-23-2021 [facility] Start: 12-23-2021 [facility] Start: 11-03-2021 [facility] Start: 10-06-2021 [facility] Start: 09-08-2021 [facility] Start: 08-25-2021 [facility] Start: 08-11-2021 [facility] Start: 08-11-2021 [facility] Start: 07-14-2021 [facility] Start: 07-14-2021 [facility] Start: 07-09-2021 End: 07-09-2021 [facility] Start: 06-16-2021 [facility] Start: 05-19-2021 End: 05-19-2021 [facility] Start: 05-19-2021 [facility] Start: 04-21-2021 [facility] Start: 04-09-2021 [facility] Start: 03-24-2021 [facility] Start: 02-24-2021 [facility] Start: 01-12-2021 End: 01-12-2021 [facility] Start: 01-06-2021 [facility] Start: 01-01-2021 [facility] Start: 12-02-2020 [facility] Start: 11-04-2020 [facility] Start: 10-07-2020 [facility] Start: 09-09-2020 [facility] Start: 08-12-2020 [facility] Start: 07-15-2020 [facility] Start: 06-17-2020 [facility] Start: 05-20-2020 [facility] Start: 04-16-2020 [facility] Start: 03-19-2020 [facility] Start: 01-09-2020 [facility] Start: 01-09-2020 [facility] Start: 01-03-2020 [facility] Start: 11-27-2019 End: 11-28-2019 [facility] Start: 10-29-2019 [facility] Start: 10-17-2019 [facility] Start: 09-05-2019 [facility] Start: 09-05-2019 [facility] Start: 07-25-2019 [facility] Start: 07-25-2019 [facility] Start: 06-13-2019 [facility] Start: 06-13-2019 [facility] Start: 05-02-2019 [facility] Start: 04-04-2019 [facility] Start: 03-07-2019 [facility] Start: 02-07-2019 [facility] Start: 01-10-2019 [facility] Start: 11-15-2018 [facility] Start: 10-18-2018 [facility] Start: 09-20-2018 [facility] Start: 08-23-2018 [facility] Start: 07-12-2018 [facility] Start: 06-14-2018 [facility] Start: 05-18-2018 [facility] Start: 05-09-2018 [facility] Start: 04-19-2018 [facility] Start: 03-22-2018 [facility] Start: 02-15-2018 [facility] Start: 01-18-2018 [facility] Start: 12-21-2017 [facility] Start: 08-24-2017 [facility] Start: 07-27-2017 [facility] Start: 2017 RSV High Risk: (Elderly (60+) or Population) (1 - 1-dose 75+ series) RSV High Risk: (Elderly (60+) or Population) (1 - 1-dose 75+ series) [facility] Start: 2007 Fall Risk Screening Fall Risk Screening [facility] Start: 2002 RSV patients and/or patients aged 60+ years (1 - 1-dose 60+ series) RSV patients and/or patients aged 60+ years (1 - 1-dose 60+ series) [facility] Start: 1992 Administration of varicella zoster vaccine Zoster (Shingles) Vaccine (1 of 2) [facility] Start: 1964 DTaP/Tdap/Td Vaccines (1 - Tdap) DTaP/Tdap/Td Vaccines (1 - Tdap) [facility] Start: 1961 DTaP,Tdap and Td Vaccines (1 - Tdap) DTaP,Tdap and Td Vaccines (1 - Tdap) [facility] Start: 1961 Pneumococcal vaccination Pneumococcal Vaccine (1 of 2 - PCV) [facility] Start: 1961 Urine screening for protein Diabetes: Urine Protein Screening [facility] Start: 1961 Zoster Vaccines (1 of 2) Zoster Vaccines (1 of 2) [facility] Start: 1954 Depression Screening Depression Screening [facility] Start: 1954 Tobacco Screening Tobacco Screening [facility] Start: 1952 Diabetic foot examination Diabetes: Foot Exam [facility] Start: 1948 Pneumococcal Vaccine: 65+ Years (1 - PCV) Pneumococcal Vaccine: 65+ Years (1 - PCV) [facility] Start: 1948 Pneumococcal Vaccine: 65+ Years (1 of 2 - PCV) Pneumococcal Vaccine: 65+ Years (1 of 2 - PCV) [facility] Start: 1947 COVID-19 Vaccine (#1) COVID-19 Vaccine (#1) [facility] Start: 1942 Hemoglobin A1c measurement Diabetes: Hemoglobin A1C [facility] Start: 1942 Lipid panel Lipid Panel [facility] Start: 1942 Medicare Annual Wellness Visit Medicare Annual Wellness Visit (AWV) [facility] Start: 1942 Urine screening for protein Diabetes: Urine Protein Screening [facility] Start: 1942 Yearly Adult Physical Yearly Adult Physical [facility] Anion gap measurement [facility] Basophils [#/volume] in Blood by Automated count [facility] Basophils/100 leukocytes in Blood by Automated count [facility] Comprehensive metabo lic 1999 panel - Serum or Plasma [facility] Work Phone: Comprehensive metabo lic 2000 panel - Serum or Plasma [facility] Comprehensive metabo lic 2000 panel - Serum or Plasma [facility] Comprehensive metabo lic 2000 panel - Serum or Plasma [facility] Comprehensive metabo lic 2000 panel - Serum or Plasma [facility] DXA Skeletal system.axial Views for bone density [facility] Work Phone: DXA Skeletal system.axial Views for bone density [facility] ECG 12 Lead ECG 12 Lead ECG Routine Persistent atrial fibrillation with RVR (Multi) 12/07/2024 2:26 PM EST [facility] Service Area Work Phone: Eosinophils/100 leukocytes in Blood by Automated count [facility] Erythrocyte distribution width [Ratio] by Automated count [facility] Erythrocytes [#/volu me] in Blood [facility] FREE K+L LT CHAINS, QN, S FREE K+L LT CHAINS, QN, S Lab STAT 08/01/2024 1:10 PM EDT [facility] Hematocrit [Volume Fraction] of Blood [facility] Hemoglobin [Mass/volume] in Blood [facility] Leukocytes [#/volume ] corrected for nucleated erythrocytes in Blood by Automated coun [facility] Leukocytes [#/volume ] in Blood [facility] Lymphocytes [#/volum e] in Blood by Automated count [facility] Lymphocytes/100 leukocytes in Blood by Automated count [facility] MCH [Entitic mass] b y Automated count [facility] MCHC [Mass/volume] b y Automated count [facility] MCV [Entitic volume] by Automated count [facility] Monocytes [#/volume] in Blood by Automated count [facility] Monocytes/100 leukocytes in Blood by Automated count [facility] Neutrophils [#/volum e] in Blood by Automated count [facility] Neutrophils/100 leukocytes in Blood by Automated count [facility] Nucleated erythrocyt es [Presence] in Blood by Automated count [facility] Patient Education [facility] Work Phone: Patient referral [facility] Work Phone: Platelet mean volume [Entitic volume] in Blood by Automated count [facility] Platelets [#/volume] in Blood [facility] Protein electrophoresis, serum Protein electrophoresis, serum Lab STAT 08/01/2024 1:10 PM EDT [facility] Work Phone: Radiologic examinati on osseous survey [facility] Work Phone: Radiologic examinati on osseous survey [facility] Radiologic examinati on osseous survey compl [facility] Radiologic examinati on osseous survey [facility] Renal function 1999 panel - Serum or Plasma [facility] Renal function 1999 panel - Serum or Plasma [facility] Renal function 2000 panel - Serum or Plasma [facility] Renal function 1999 panel - Serum or Plasma [facility] End: 11-02-2023 [facility] Transthoracic [facility] Service Area Work Phone: Comment on above: Once for 1 Occurrences starting 11/02/20 23 until 11/02/2023 [facility] Payers Date Payer Category Payer Private Health Insurance [facility] [place] [address] [id number] 5 2022 Unknown [id number] 2021 Medicare [id number] 2010 Managed Care Other (unspecified) [facility] [id number] .[id number] 2010 Miscellaneous or Other [employer]UT[employer] OF [facility] [place] [address] [id number] .[id number] 5 2010 Unknown 2010 Unknown [id number] 2007 Medicare [id number] 1.13.647 .[id number] 1959 Medicare [id number] 2.16.840.1.428411.19 1959 Self-pay [id number] 1959 Unknown [id number] 2.16.840.1.664875.19 1942 Unknown [id number] 2.16.840.1.387432.3.579 .2.593 1942 Unknown [id number] 2.16.840.1.931163.3.579 .2.593 1942 Unknown [id number] 2.16.840.1.882310.3.579 .2.593 1942 Unknown [id number] 2.16.840.1.905780.3.579 .2.593 1942 Unknown [id number] 2.16.840.1.183807.3.579 .2.593 1942 Unknown [id number] 2.16.840.1.259261.3.579 .2.593 1942 Unknown [id number] 2.16.840.1.053136.3.579 .2.593 1942 Unknown [id number] 2.16.840.1.685178.3.579 .2.593 1942 Unknown [id number] 2.16.840.1.407967.3.579 .2.593 1942 Unknown [id number] 2.16.840.1.576989.3.579 .2.593 1942 Unknown [id number] 2.16.840.1.171862.3.579 .2.593 1942 Unknown [id number] 2.16.840.1.615239.3.579 .2.593 1942 Unknown [id number] 2.16.840.1.195175.3.579 .2.593 1942 Unknown [id number] 2.16.840.1.971527.3.579 .2.593 1942 Unknown [id number] 2.16.840.1.670014.3.579 .2.356 1942 Unknown [id number] 2.16.840.1.843617.3.579 .2.356 1942 Unknown [id number] 2.16.840.1.356103.3.579 .2.1259 1942 Unknown [id number] 2.16.840.1.719361.3.579 .2.1246 1942 Unknown [id number] 2.16.840.1.382030.3.579 .2.727 1942 Unknown [id number] 2.16.840.1.009816.3.579 .2.727 1942 Unknown [id number] 2.16.840.1.303428.3.579 .2.1244 1942 Unknown [id number] 2.16.840.1.997517.3.579 .2.1244 1942 Unknown [id number] 2.16.840.1.010131.3.579 .2.1244 Unknown [id number] 2.16.840.1.165023.3.579 .2.593 Unknown [id number] 2.16.840.1.146261.3.579 .2.531 Unknown [id number] 2.16.840.1.555870.3.579 .2.531 Unknown [id number] 2.16.840.1.213834.3.579 .2.531 Unknown [id number] 2.16.840.1.767733.3.579 .2.531 Unknown [id number] 2.16.840.1.864398.3.579 .2.531 Unknown [id number] 2.16.840.1.957764.3.579 .2.531 Social History Date Type Detail Facility Start: 04-25-2019 End: 10-04-2023 Daily caffeine consumption, 2-3 servings a day Daily caffeine consumption, 2-3 servings a day -[facility] [facility] DO Work Phone: Start: 03-08-2022 End: 12-20-2024 Tobacco smoking status Never smoked tobacco (finding) [facility] Tobacco smoking status Never [facility] Start: 04-25-2019 End: 10-04-2023 Sex Assigned At Female [facility] [employer] Other Start: 1940 Sex Assigned At Female [facility] Start: 10-04-2023 End: 03-05-2024 Tobacco use and exposure Smokeless tobacco non-user [facility] Work Phone: Start: 10-04-2023 End: 11-01-2024 Alcohol intake Lifetime non-drinker (finding) [facility] Work Phone: Start: 1940 Sex Assigned At Not on file [facility] Work Phone: Start: 09-24-2023 End: 12-07-2024 Exposure to SARS-CoV-2 (event) Not sure [facility] Start: 11-28-2024 End: 01-04-2025 Sex Female (finding) [facility] Start: 12-20-2024 [facility] Work Phone: Tobacco smoking status NHIS Tobacco smoking consumption unknown [employer] Medical Equipment Procedure Code Equipment Code Equipment Origin al Text Equipment Identifier Dates Lancets 100 pack Start: 07-10-2018 Goals Date Patient Goal Desired Activity /State Functional Status Date Assessment Result Facility 12-22-2024 Functional status Patient at Baseline [facility] Work Phone: 12-19-2024 Functional status Patient is Pro gressing Toward Baseline [facility] Work Phone: 09-19-2024 Functional status Patient at Baseline [facility] Work Phone: 01-10-2023 Functional Status N/A [facility] Mental Status Date Assessment Result Facility 12-22-2024 Cognitive function Patient at Baseline [facility] Work Phone: 12-19-2024 Cognitive function Patient at Baseline [facility] Work Phone: 09-19-2024 Cognitive function Cognitive Sta tus Patient at Baseline [facility] Work Phone: Clinical Notes 07-27-2017 to 01-02-2025 Note Date & Type Note Facility 01-02-2025 Procedure note [facility] 12-22-2024 Progress note Note Date/Time December 22, 2024 10:07am [facility] [address] [place], [place] [id number] Nephrology Progress Note Signed Patient: Hailee Trivedi MR#: [id number] : 1940 Acct:[id number] Age/Sex: 84 / F Adm Date: 5 Loc: 3T Room: [address] [place] [address] Type: ADM IN Attending Dr: Jonathan Valenzuela MD Copies to: ~ Date of Service: 12/22/2024 Subjective Subjective Narrative: This is a 84-year-old female with medical history of multiple myeloma, DM, HTN, CVA, CHF, HLD, A-fib, nephrolithiasis was present to the emergency room for increased shortness of breath and leg swelling. Patient has a frequent hospitalization due to the congestive heart failure during the last couple months. She reported that she was recently admitted at [facility] and during hospitalization she was given IV Lasix and was noticed to have a worsening renal function. She was discharged home without Lasix. She reported after going home she was retaining fluid with increased leg swelling and shortness of breath. 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 She follows in our office for her CKD care and contact our office for increased shortness of breath and leg swelling. She was advised to come to the emergency room. On evaluation in the emergency room patient had a chest x-ray which showed interstitial changes with bilateral pleural effusion. She was also found to have elevated BNP 376. Patient reported that she is scheduled to have a cardioversion by her pre billing clinician Dr. Rhodes. Nephrology is consulted for CKD and fluid overload management. Interim history Patient was seen and examined bedside. Her blood pressure and slept well last night. Denies any chest pain palpitation cough nausea vomit diarrhea shortness of breath Exam Physical Exam Vital Signs: Temp Pulse Resp BP Pulse Ox O2 Del Method 97.3 F L 83 16 105/67 98 Room Air 12/22/24 04:00 12/22/24 04:00 12/22/24 04:00 12/22/24 04:00 12/22/24 04:00 12/22/24 04:00 Narrative: General: Appears comfortable and not in distress Heart: S1-S2, no rub Lung: Bilateral air entry, no wheezing or crackles Abdomen: Soft, positive bowel sounds Extremities: 1+ edema, no cyanosis Head: Atraumatic, normocephalic Ear: No gross hearing Deficit or external ear redness Eyes: No pallor or redness Neck: No JVD or visible mass Skin: No rashes , warm to touch FOOD RUNNER: Awake,Alert, following simple command Musculoskeletal: No swelling or limitation of movement of the large joints Psychiatric: Cooperative, normal mood and affect Objective Intake and Output I&O: Intake & Output 12/19/24 12/20/24 12/21/24 12/22/24 23:59 23:59 23:59 23:59 Intake Total 0 / 0 1110 / 1110 960 / 960 300 / 300 Output Total 650 / 650 500 / 500 Balance 0 / 0 460 / 460 960 / 960 -200 / -200 Weight 192.5 kg 88.451 kg 88 kg 90 kg Meds and Allergies Meds: Active Medications Amlodipine Besylate (Amlodipine 5 Mg Tablet) 5 mg PO DAILY [facility] Stop: 12/19/25 16:59 Last Admin: 12/22/24 09:03 Dose: 5 mg Apixaban (Apixaban 2.5 Mg Tablet) 2.5 mg PO BID [facility] Stop: 12/19/25 20:59 Last Admin: 12/22/24 09:04 Dose: 2.5 mg Atorvastatin Calcium (Atorvastatin 40 Mg Tablet) 40 mg PO QPM [facility] Stop: 12/19/25 20:59 Last Admin: 12/21/24 20:28 Dose: 40 mg Carvedilol (Carvedilol 12.5 Mg Tablet) 12.5 mg PO BID.WITH.MEALS [facility] Stop: 12/19/25 16:59 Last Admin: 12/22/24 09:04 Dose: 12.5 mg Dextrose (Dextrose 50% In Water 25 Gm/50 Ml Syringe) 0 gm IV-PUSH PRN PRN PRN Reason: Hypoglycemia Stop: 12/19/25 16:31 Furosemide (Furosemide 40 Mg Tablet) 40 mg PO DAILY.8A [facility] Stop: 12/21/25 07:59 Last Admin: 12/22/24 09:04 Dose: 40 mg Glucose (Dextrose 40% Gel 15 Gm Tube) 0 gm PO PRN PRN PRN Reason: Hypoglycemia Stop: 12/19/25 16:31 Hydralazine HCl (Hydralazine 20 Mg/Ml Vial) 10 mg IV-PUSH Q4H PRN PRN Reason: if SBP > 185 Stop: 12/19/25 16:30 Insulin Aspart (Insulin Aspart 300 Units/3 Ml) 0 units SUBCUT TID.WM.HS [facility]; Protocol Stop: 12/19/25 16:59 Last Admin: 12/22/24 09:04 Dose: 1 units Potassium Chloride (Potassium Chloride Er 20 Meq Tab.Er.Prt) 20 meq PO DAILY [facility] Stop: 12/22/25 08:59 Last Admin: 12/22/24 09:04 Dose: 20 meq Sodium Bicarbonate (Sodium Bicarbonate 650 Mg Tablet) 650 mg PO BID [facility] Stop: 12/21/25 08:59 Last Admin: 12/22/24 09:04 Dose: 650 mg Sodium Chloride (Sodium Chloride 0.9 % 10 Ml Syringe) 0 ml IV-PUSH PRN PRN PRN Reason: Flush Stop: 12/19/25 11:47 Allergies lenalidomide (From Revlimid) Allergy (Mild, Verified 12/19/24 11:48) Rash, itching oxybutynin Allergy (Unknown, Verified 12/19/24 11:48) Rash, rash, hives pregabalin (From Lyrica) Allergy (Unknown, Verified 12/19/24 11:48) double vision Results - Nephrology Labs 12/20/24 12:15 12/22/24 05:05 Labs: 12/22/24 05:05 BUN 25 Creatinine 1.87 H D Radiology Impressions Impressions - last 24 hours: Any impression(s) listed above is documentation that was entered by the reading physician into a diagnostic report(s) for Hailee Trivedi. I have reviewed the report(s) and am incorporating any findings in the treatment plan of this patient where applicable. A&P - Nephrology Assessment/Plan (1) CKD (chronic kidney disease) stage 4, GFR 15-29 ml/min: Assessment/Problem Details: She has a CKD due to the longstanding DM and myeloma with baseline serum creatinine around 2.3 to 2.7 mg/dL. (2) Acute on chronic diastolic (congestive) heart failure: Assessment/Problem Details: Patient presented with increased shortness of breath and leg swelling. Her echocardiogram showed a preserved EF with EF 55 to 60%. (3) Type 2 diabetes mellitus with chronic kidney disease: Assessment/Problem Details: She has insulin-dependent type 2 diabetes mellitus. She takes insulin NPH at home. (4) Hypertensive chronic kidney disease with stage 1 through stage 4 chronic kidney disease, or unspecified chronic kidney disease: Assessment/Problem Details: Her blood pressure is controlled. She takes amlodipine and carvedilol at home. (5) Multiple myeloma: Assessment/Problem Details: She has a multiple myeloma and follows with oncology. Plan * Continue oral Lasix 40 mg p.o daily. * Will continue current dose of the amlodipine and carvedilol. * Continue the management as per the primary hospitalist team. The goal of blood sugar is between 100 to 150 mg/d. * Continue home dose of the sodium bicarbonate . * I have advised the patient to take oral acid on daily basis to help her with her potassium. * Check renal function 3 to 5 days after discharge. Patient can be discharged from renal standpoint. Documented By: Akin Suarez MD 12/22/24 1006 Signed By: <Electronically signed by Akin Suarez MD> 12/22/24 1007 [facility] Work Phone: 1(406) 328-515602-07-2025 Progress note Author Alivia Arana [facility] Note Date/Time December 21, 2024 8 :46pm [facility] [address] [place] [address] Hospitalist Progress Note Signed Patient: Hailee Trivedi MR#: [id number] : 1940 Acct:[id number] Age/Sex: 84 / F Adm Date: 5 Loc: Room: [address] [place] [address] Type: ADM IN Attending Dr: Jonathan Valenzuela MD Copies to: ~ Date of Service: 12/21/2024 Subjective Subjective Narrative: Seen and examined at bedside, respiratory status continues to improve. Less dyspnea on exertion, remains on room air. Bilateral lower extremity edema significantly improved. If continues to do well and creatinine does not continue to trend up, will discharge home tomorrow. Exam Physical Exam Vital Signs: Temp Pulse Resp BP Pulse Ox O2 Del Method 97.7 F 74 18 136/82 97 Room Air 12/21/24 08:00 12/21/24 08:00 12/21/24 08:00 12/21/24 08:00 12/21/24 08:00 12/21/24 08:00 Narrative: CONST-alert, awake, cooperative, comfortable CARDIAC?normal rate, regular rhythm, normal S1 & S2. PULM?diminished without wheeze or rhonchi, RA, no accessory muscle use or cough noted ABD ? Soft. Bowel sounds are normal. No distention No tenderness EXTREM?trace bilateral pedal edema, no calf pain or tenderness SKIN? W/D good turgor Objective Lab Results 12/20/24 12:15 12/21/24 05:00 Meds Allergies and Active Meds Allergies lenalidomide (From Revlimid) Allergy (Mild, Verified 12/19/24 11:48) Rash, itching oxybutynin Allergy (Unknown, Verified 12/19/24 11:48) Rash, rash, hives pregabalin (From Lyrica) Allergy (Unknown, Verified 12/19/24 11:48) double vision Active Meds: Active Medications Generic Name Dose Route Start Last Admin Trade Name Freq PRN Reason Stop Dose Admin Amlodipine Besylate 5 mg 12/19/24 17:00 12/21/24 08:08 Amlodipine 5 Mg Tablet PO 12/19/25 16:59 5 mg DAILY KARISSA Administration Apixaban 2.5 mg 12/19/24 21:00 12/21/24 08:08 Apixaban 2.5 Mg Tablet PO 12/19/25 20:59 2.5 mg BID KARISSA Administration Atorvastatin Calcium 40 mg 12/19/24 21:00 12/20/24 21:33 Atorvastatin 40 Mg Tablet PO 12/19/25 20:59 40 mg QPM KARISSA Administration Carvedilol 12.5 mg 12/19/24 17:00 12/21/24 08:08 Carvedilol 12.5 Mg Tablet PO 12/19/25 16:59 12.5 mg BID.WITH.MEALS KARISSA Administration Dextrose 0 gm 12/19/24 16:32 Dextrose 50% In Water 25 Gm/50 Ml Syringe IV-PUSH 12/19/25 16:31 PRN PRN Hypoglycemia Furosemide 40 mg 12/21/24 08:00 12/21/24 08:07 Furosemide 40 Mg Tablet PO 12/21/25 07:59 40 mg DAILY.8A KARISSA Administration Glucose 0 gm 12/19/24 16:32 Dextrose 40% Gel 15 Gm Tube PO 12/19/25 16:31 PRN PRN Hypoglycemia Hydralazine HCl 10 mg 12/19/24 16:31 Hydralazine 20 Mg/Ml Vial IV-PUSH 12/19/25 16:30 Q4H PRN if SBP > 185 Insulin Aspart 0 units 12/19/24 17:00 12/21/24 08:09 Insulin Aspart 300 Units/3 Ml SUBCUT 12/19/25 16:59 1 units TID.WM.HS KARISSA Administration Protocol Sodium Bicarbonate 650 mg 12/21/24 09:00 12/21/24 08:08 Sodium Bicarbonate 650 Mg Tablet PO 12/21/25 08:59 650 mg BID KARISSA Administration Sodium Chloride 0 ml 12/19/24 11:48 Sodium Chloride 0.9 % 10 Ml Syringe IV-PUSH 12/19/25 11:47 PRN PRN Flush A&P - Hospitalist Assessment/Plan (1) Acute on chronic diastolic (congestive) heart failure: (2) Dyspnea: Plan Suspecting acute on chronic HFpEF History of chronic kidney disease stage IV Dyspnea on exertion?significantly improved Respiratory status continues to improve. Less dyspnea on exertion, remains on room air. Bilateral lower extremity edema significantly improved. * Nephrology following, on 40 mg of Lasix p.o. daily. If continues to do well and creatinine does not continue to trend up, will discharge home tomorrow. * Continue strict I's and O's, daily weight, fluid restriction * Creatinine trending up 2.41 today, 2.38 on admission. Baseline ~2.0-2.5, avoid nephrotoxins, renally dose medications * EKG showed atrial fibrillation, heart rate 80 bpm. Nonspecific T wave abnormalities. * CXR with mild interstitial changes with trace pleural effusions. No consolidation to suggest pneumonia. * BNP 376.0, will hold off on starting diuretics until seen by nephrology * Echocardiogram on 11/18/2024 with EF of 60 to 65%. Mild mitral regurgitation * Continue to monitor BMP Chronic conditions: 1. Type 2 diabetes?start Accu-Cheks before meals and at bedtime, SSI, consistentcarbohydrate diet, hypoglycemic protocol 2. Hypertension/atrial fibrillation/history of CVA?on Coreg, apixaban, amlodipine 3.Hyperlipidemia?On atorvastatin CODE STATUS: DNR CCA without intubation discussed with patient and daughter DVT prophylaxis: On apixaban Attending Provider Attestation Attending Physician Attestation: I personally saw this patient on the day of the encounter, reviewed the history,performed the chahal elements of the exam, formulated the plan of care and confirmed the resident's/epidemiology internship/medical student/nurse practitioner's dictation/written note. Agree with above plan, monitoring renal function, tentative plan for discharge tomorrow. Documented By: Alivia Arana APRN 12/21/24 1112 Signed By: <Electronically signed by RAMAKRISHNA Arana> 12/21/24 1120 <Electronically signed by Jonathan Valenzuela MD> 12/21/242045 [facility] Work Phone: 1(620) 580-795702-07-2025 Progress note Author Akin Suarez [facility] Note Date/Time December 21, 2024 9 :35am [facility] [address] [place] [id number] Nephrology Progress Note Signed Patient: Hailee Trivedi MR#: [id number] : 1940 Acct:[id number] Age/Sex: 84 / F Adm Date: 5 Loc: Room: [address] [place] [address] Type: ADM IN Attending Dr: Jonathan Valenzuela MD Copies to: ~ Date of Service: 12/21/2024 Subjective Subjective Narrative: This is a 84-year-old female with medical history of multiple myeloma, DM, HTN, CVA, CHF, HLD, A-fib, nephrolithiasis was present to the emergency room for increased shortness of breath and leg swelling. Patient has a frequent hospitalization due to the congestive heart failure during the last couple months. She reported that she was recently admitted at [facility] and during hospitalization she was given IV Lasix and was noticed to have a worsening renal function. She was discharged home without Lasix. She reported after going home she was retaining fluid with increased leg swelling and shortness of breath. 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 She follows in our office for her CKD care and contact our office for increased shortness of breath and leg swelling. She was advised to come to the emergency room. On evaluation in the emergency room patient had a chest x-ray which showed interstitial changes with bilateral pleural effusion. She was also found to have elevated BNP 376. Patient reported that she is scheduled to have a cardioversion by her pre billing clinician Dr. Rhodes. Nephrology is consulted for CKD and fluid overload management. Interim history Patient was seen and examined bedside. She is feeling better today denies any chest pain palpitation cough nausea vomit diarrhea shortness of breath Exam Physical Exam Vital Signs: Temp Pulse Resp BP Pulse Ox O2 Del Method 97.7 F 74 18 136/82 97 Room Air 12/21/24 08:00 12/21/24 08:00 12/21/24 08:00 12/21/24 08:00 12/21/24 08:00 12/21/24 08:00 Narrative: General: Appears comfortable and not in distress Heart: S1-S2, no rub Lung: Bilateral air entry, no wheezing or crackles Abdomen: Soft, positive bowel sounds Extremities: 1+ edema, no cyanosis Head: Atraumatic, normocephalic Ear: No gross hearing Deficit or external ear redness Eyes: No pallor or redness Neck: No JVD or visible mass Skin: No rashes , warm to touch FOOD RUNNER: Awake,Alert, following simple command Musculoskeletal: No swelling or limitation of movement of the large joints Psychiatric: Cooperative, normal mood and affect Objective Intake and Output I&O: Intake & Output 12/18/24 12/19/24 12/20/24 12/21/24 23:59 23:59 23:59 23:59 Intake Total 0 / 0 1110 / 1110 120 / 120 Output Total 650 / 650 Balance 0 / 0 460 / 460 120 / 120 Weight 192.5 kg 88.451 kg 88 kg Meds and Allergies Meds: Active Medications Amlodipine Besylate (Amlodipine 5 Mg Tablet) 5 mg PO DAILY [facility] Stop: 12/19/25 16:59 Last Admin: 12/21/24 08:08 Dose: 5 mg Apixaban (Apixaban 2.5 Mg Tablet) 2.5 mg PO BID [facility] Stop: 12/19/25 20:59 Last Admin: 12/21/24 08:08 Dose: 2.5 mg Atorvastatin Calcium (Atorvastatin 40 Mg Tablet) 40 mg PO QPM [facility] Stop: 12/19/25 20:59 Last Admin: 12/20/24 21:33 Dose: 40 mg Carvedilol (Carvedilol 12.5 Mg Tablet) 12.5 mg PO BID.WITH.MEALS [facility] Stop: 12/19/25 16:59 Last Admin: 12/21/24 08:08 Dose: 12.5 mg Dextrose (Dextrose 50% In Water 25 Gm/50 Ml Syringe) 0 gm IV-PUSH PRN PRN PRN Reason: Hypoglycemia Stop: 12/19/25 16:31 Furosemide (Furosemide 40 Mg Tablet) 40 mg PO DAILY.8A [facility] Stop: 12/21/25 07:59 Last Admin: 12/21/24 08:07 Dose: 40 mg Glucose (Dextrose 40% Gel 15 Gm Tube) 0 gm PO PRN PRN PRN Reason: Hypoglycemia Stop: 12/19/25 16:31 Hydralazine HCl (Hydralazine 20 Mg/Ml Vial) 10 mg IV-PUSH Q4H PRN PRN Reason: if SBP > 185 Stop: 12/19/25 16:30 Insulin Aspart (Insulin Aspart 300 Units/3 Ml) 0 units SUBCUT TID.WM.HS [facility]; Protocol Stop: 12/19/25 16:59 Last Admin: 12/21/24 08:09 Dose: 1 units Sodium Bicarbonate (Sodium Bicarbonate 650 Mg Tablet) 650 mg PO BID [facility] Stop: 12/21/25 08:59 Last Admin: 12/21/24 08:08 Dose: 650 mg Sodium Chloride (Sodium Chloride 0.9 % 10 Ml Syringe) 0 ml IV-PUSH PRN PRN PRN Reason: Flush Stop: 12/19/25 11:47 Allergies lenalidomide (From Revlimid) Allergy (Mild, Verified 12/19/24 11:48) Rash, itching oxybutynin Allergy (Unknown, Verified 12/19/24 11:48) Rash, rash, hives pregabalin (From Lyrica) Allergy (Unknown, Verified 12/19/24 11:48) double vision Results - Nephrology Labs 12/20/24 12:15 12/21/24 05:00 Labs: 12/20/24 12/21/24 12:15 05:00 BUN 24 28 H Creatinine 2.21 H 2.42 H Radiology Impressions Impressions - last 24 hours: Any impression(s) listed above is documentation that was entered by the reading physician into a diagnostic report(s) for Hailee Trivedi. I have reviewed the report(s) and am incorporating any findings in the treatment plan of this patient where applicable. A&P - Nephrology Assessment/Plan (1) CKD (chronic kidney disease) stage 4, GFR 15-29 ml/min: Assessment/Problem Details: She has a CKD due to the longstanding DM and myeloma with baseline serum creatinine around 2.3 to 2.7 mg/dL. (2) Acute on chronic diastolic (congestive) heart failure: Assessment/Problem Details: Patient presented with increased shortness of breath and leg swelling. Her echocardiogram showed a preserved EF with EF 55 to 60%. (3) Type 2 diabetes mellitus with chronic kidney disease: Assessment/Problem Details: She has insulin-dependent type 2 diabetes mellitus. She takes insulin NPH at home. (4) Hypertensive chronic kidney disease with stage 1 through stage 4 chronic kidney disease, or unspecified chronic kidney disease: Assessment/Problem Details: Her blood pressure is controlled. She takes amlodipine and carvedilol at home. (5) Multiple myeloma: Assessment/Problem Details: She has a multiple myeloma and follows with oncology. Plan * Continue oral Lasix 40 mg p.o daily. Will monitor renal function for another 24 hours. If stays stable she can be discharged. * Will continue current dose of the amlodipine and carvedilol. * Continue the management as per the primary hospitalist team. The goal of blood sugar is between 100 to 150 mg/d. * Continue home dose of the sodium bicarbonate in AM. * Check renal function daily and monitor input output Documented By: Akin Suarez MD 12/21/24 0932 Signed By: <Electronically signed by Akin Suarez MD> 12/21/24 0935 [facility] Work Phone: [phone]) 835-857702-06-2025 History and physical note Author Alivia Arana [facility] Note Date/Time December 20, 2024 8 :40pm [facility] [address] [place] [address] Hospitalist H&P Signed Patient: Hailee Trivedi MR#: [id number] : 1940 Acct:[id number] Age/Sex: 84 / F Adm Date: 5 Loc: Room: [address] [place] [address] Type: ADM IN Attending Dr: Jonathan Valenzuela MD Copies to: RAMAKRISHNA Wray MD Rahul Prasad, MD~ HPI DATE OF EXAMINATION: 12/19/24 CHIEF COMPLAINT: Shortness of breath HISTORY OF PRESENT ILLNESS: Patient is an 84-year-old female with past medical history of HFpEF, atrial fibrillation, chronic kidney disease stage IV, history of CVA, hypertension, type 2 diabetes who presents to the emergency department with progressively worsening shortness of breath especially on exertion and bilateral lower extremity edema for the last 4 to 5 days. This morning it was especially worse even with talking and she called Dr. Suarez who follows up with a chronic kidney disease and was instructed to come to the emergency department for evaluation She was recently discharged from here on 11/24/2024 where she was treated for acute on chronic HFpEF and treated with Lasix while inpatient. She was not discharged on any diuretics. She did follow-up with Dr. Rhodes and is scheduled for cardioversion for her atrial fibrillation on 01/02/24. Currently she is on room air with SpO2 in the high 90s, denies chest pain, has no palpitations. She has mild intermittent cough without any pain on inspiration. Denies abdominal pain, nausea vomiting or diarrhea. Denies any fever or chills. Denies any urinary symptoms of frequency urgency or dysuria. No headache or dizziness Upon arrival to the ER, EKG showed atrial fibrillation, heart rate 80 bpm. Nonspecific T wave abnormalities. CXR showed mild interstitial changes with trace pleural effusions. No consolidation to suggest pneumonia. BNP 376.0 she will be admitted by the hospitalist team for further evaluation and management. Review of Systems Review of Systems Review of systems: 10 point review of systems obtained, negative unless noted in the HPI below [facility] Source: Old Records Reviewed Medical History Congestive heart failure (CHF) Multiple myeloma Trigger finger, left middle finger Type 2 diabetes mellitus with chronic kidney disease Diabetic nephropathy associated with type 2 diabetes mellitus Hypertensive chronic kidney disease with stage 1 through stage 4 chronic kidney disease, or unspecified chronic kidney disease Cerebrovascular accident (CVA) involving cerebellum COVID Vitamin D deficiency Secondary hyperparathyroidism of renal origin COVID-19 Afib CVA (cerebral vascular accident) CKD (chronic kidney disease) HTN (hypertension) Multiple myeloma Hyperlipidemia CKD (chronic kidney disease) stage 4, GFR 15-29 ml/min Surgical History Hx of lithotripsy History of [...] None Meds Medications and Allergies Allergies lenalidomide (From Revlimid) Allergy (Mild, Verified 12/19/24 11:48) Rash, itching oxybutynin Allergy (Unknown, Verified 12/19/24 11:48) Rash, rash, hives pregabalin (From Lyrica) Allergy (Unknown, Verified 12/19/24 11:48) double vision Home Medications cholecalciferol (vitamin D3) 125 mcg (5,000 unit) tablet (Vitamin D3) 1,000 unitPO DAILY 08/10/18 [History Confirmed 12/19/24] atorvastatin 40 mg tablet 40 mg PO DAILY 08/23/18 [History Confirmed 12/19/24] cyanocobalamin (vitamin B-12) 1,000 mcg tablet 1,000 mcg PO DAILY 05/02/19 [History Confirmed 12/19/24] carvedilol 12.5 mg tablet (Coreg) 12.5 mg PO BID 30 days #60 tabs 11/07/19 [Rx Confirmed 12/19/24] insulin NPH isoph U-100 human 100 unit/mL subcutaneous suspension (Humulin N NPHU-100 Insulin (isophane susp)) 15 unit subcut BID 07/05/24 [History Confirmed 12/19/24] omega 2-usk-ibh-fish oil 1,000 mg (120 mg-180 mg) capsule (Fish Oil) 1 cap PO Q48HR 07/05/24 [History Confirmed 12/19/24] amlodipine 5 mg tablet 5 mg PO DAILY #90 tabs 08/20/24 [Rx Confirmed 12/19/24] sodium bicarbonate 650 mg tablet 1,300 mg (2 x 650 mg) PO TID #0 tabs 09/18/24 [Rx Confirmed 12/19/24] magnesium chloride 71.5 mg (magnesium chloride) tablet,delayed release (Slow- Mag) 71.5 mg PO DAILY #60 tabs 09/19/24 [Rx Confirmed 12/19/24] docusate sodium 100 mg capsule (Colace) 100 mg PO DAILY PRN constipation 10/30/24 [History Confirmed 12/19/24] ferrous sulfate 325 mg (65 mg iron) tablet,delayed release 325 mg PO DAILY 10/30/24 [History Confirmed 12/19/24] omeprazole 20 mg capsule,delayed release 20 mg PO DAILY 10/30/24 [History Confirmed 11/27/24] apixaban 5 mg tablet (Eliquis) 2.5 mg PO BID 12/19/24 [History Confirmed 12/19/24] Exam Physical Exam Vital Signs: Temp Pulse Resp BP Pulse Ox O2 Del Method 97.8 F 82 18 157/90 H 98 Room Air 12/19/24 14:28 12/19/24 14:28 12/19/24 14:28 12/19/24 14:28 12/19/24 14:28 12/19/24 14:28 Narrative: CONST-alert, awake, cooperative, comfortable HEAD - Normocephalic and atraumatic EENT?Sclera nonicteric and conjunctive are nonerythemic, moist oral mucosa, pharynx clear NECK?Supple, no cervical lymphadenopathy CARDIAC?normal rate, regular rhythm, normal S1 & S2. PULM?diminished without wheeze or rhonchi, RA, no accessory muscle use or cough noted ABD ? Soft. Bowel sounds are normal. No distention No tenderness EXTREM?+2 bilateral pedal edema, no calf pain or tenderness SKIN? W/D good turgor MS- MAEX4 spontaneously with equal with equal strength NEURO? A&Ox3 speech clear and tongue midline, equal facial symmetry no focal motor deficits PSYCH?Mood, affect and behavior appropriate Results - Hospitalist H&P Lab Results Labs: Laboratory Last Values Corrected WBC 8.4 X10E3/uL (3.8-11.6) 12/19/24 14:08 Uncorrected WBC Count 8.4 x10E3/uL (3.8-11.6) 12/19/24 14:08 RBC 3.76 x10E6/uL (3.60-5.00) 12/19/24 14:08 Hgb 11.7 g/dL (11.8-15.4) L 12/19/24 14:08 Hct 35.6 % (34.0-46.4) 12/19/24 14:08 MCV 94.6 fl (80-100) 12/19/24 14:08 MCH 31.2 pg (24.7-34.3) 12/19/24 14:08 MCHC 33.0 g/dL (32.0-35.0) 12/19/24 14:08 RDW 12.8 % (11.9-15.3) 12/19/24 14:08 Plt Count 210 x10E3/uL (150-450) 12/19/24 14:08 MPV 9.3 fl (6.3-10.7) 12/19/24 14:08 Neut % (Auto) 63.7 % (.) 12/19/24 14:08 Lymph % (Auto) 27.1 % (.) 12/19/24 14:08 Petroleum % (Auto) 7.0 % (.) 12/19/24 14:08 Eos % (Auto) 0.9 % (.) 12/19/24 14:08 Baso % (Auto) 1.3 % (.) 12/19/24 14:08 Nucleat RBC Rel Count 0.2 /100 WBC (0-0.5) 12/19/24 14:08 Neut # (Auto) 5.3 x10E3/uL (1.8-7.7) 12/19/24 14:08 Lymph # (Auto) 2.3 x10E3/uL (1.00-4.8) 12/19/24 14:08 Petroleum # (Auto) 0.6 x10E3/uL (0.0-0.8) 12/19/24 14:08 Eos # (Auto) 0.1 x10E3/uL (0.0-0.45) 12/19/24 14:08 Baso # (Auto) 0.1 x10E3/uL (0.0-0.2) 12/19/24 14:08 Monocyte Dist Width 21.81 % (0.00-20.00) H 12/19/24 14:08 PT 14.5 Seconds (9.0-12.9) H 12/19/24 14:08 INR 1.3 12/19/24 14:08 PHA Creatinine Clear 32.39 12/19/24 14:08 Sodium 139 mmol/L (136-145) 12/19/24 14:08 Potassium 4.2 mmol/L (3.5-5.1) 12/19/24 14:08 Chloride 111 mmol/L (98-107) H 12/19/24 14:08 Carbon Dioxide 22.1 mmol/L (21.0-31.0) 12/19/24 14:08 Anion Gap 10.1 mEq/L (6.0-15.0) 12/19/24 14:08 BUN 26 mg/dL (7-25) H 12/19/24 14:08 Creatinine 2.38 mg/dL (0.60-1.20) H 12/19/24 14:08 Est GFR (CKD-EPI) 19.870 mL/Min 12/19/24 14:08 Glucose 144 mg/dL (70-100) H 12/19/24 14:08 Calcium 8.4 mg/dL (8.6-10.3) L 12/19/24 14:08 Total Bilirubin 0.5 mg/dl (0.3-1.0) 12/19/24 14:08 AST 11 U/L (13-39) L 12/19/24 14:08 ALT 7 U/L (7-52) 12/19/24 14:08 Alkaline Phosphatase 88 U/L (34-104) 12/19/24 14:08 Total Creatine Kinase 32 U/L (30-223) 12/19/24 14:08 Troponin I High Sens 4 ng/L (0-15) 12/19/24 14:08 B-Natriuretic Peptide 376.0 pg/mL (5-100) H 12/19/24 14:08 Total Protein 6.5 gm/dL (6.4-8.9) 12/19/24 14:08 Albumin 3.7 gm/dL (3.5-5.7) 12/19/24 14:08 Globulin 2.8 gm/dL 12/19/24 14:08 Albumin/Globulin Ratio 1.3 12/19/24 14:08 Lipase 35.0 U/L (11.0-82.0) 12/19/24 14:08 SARS-CoV-2 Rap RNA(RT-PCR) Negative (Negative) 12/19/24 14:27 Microbiology Results Micro: Microbiology - Results from entire visit 12/19/24 14:27 Nasopharyngeal SARS-CoV-2, Influenza & RSV (PCR) - Final Assessment & Plan Assessment/Plan (1) Acute on chronic diastolic (congestive) heart failure: (2) Dyspnea: Plan Suspecting acute on chronic HFpEF History of chronic kidney disease stage IV Dyspnea on exertion Presented with on exertion which has been progressively worsening and bilateral lower extremity edema for the last 4 to 5 days. Currently on room air with SpO2in the high 90s * EKG showed atrial fibrillation, heart rate 80 bpm. Nonspecific T wave abnormalities. * CXR with mild interstitial changes with trace pleural effusions. No consolidation to suggest pneumonia. * BNP 376.0, will hold off on starting diuretics until seen by nephrology * Echocardiogram on 11/18/2024 with EF of 60 to 65%. Mild mitral regurgitation * Start strict I's and O's, daily weight, fluid restriction * Creatinine 2.38 baseline ~2.0-2.5, avoid nephrotoxins, renally dose medications and monitor BMP * Nephrology consulted Chronic conditions: 1. Type 2 diabetes?start Accu-Cheks before meals and at bedtime, SSI, consistent carbohydrate diet, hypoglycemic protocol 2. Atrial fibrillation/hyperlipidemia/CVA?resume home medications when verified CODE STATUS: DNR CCA without intubation discussed with patient and daughter DVT prophylaxis: On apixaban IP vs OBS Justification Based on differential dx, clinical care plan, and risk of adverse events, if untreated, in my clinical judgement this patient requires an acute care setting as: INPATIENT because of an expectation of an over 2 midnight stay. Estimated length of stay (# of days): 2 Attending Provider Attestation Attending Physician Attestation: I personally saw this patient on the day of the encounter, reviewed the history,performed the chahal elements of the exam, formulated the plan of care and confirmed the resident's/epidemiology internship/medical student/nurse practitioner's dictation/writtennote. Patient seen on admission, agree with above plan. Documented By: Alivia Arana APRN 12/19/24 1546 Signed By: <Electronically signed by RAMAKRISHNA Arana> 12/19/24 1636 <Electronically signed by Jonathan Valenzuela MD> 12/20/242039 [facility] Work Phone: [phone]) 789-128802-06-2025 Progress note Author Alivia Arana [facility] Note Date/Time December 20, 2024 8 :40pm [facility] [address] [place] [address] Hospitalist Progress Note Signed Patient: Hailee Trivedi MR#: [id number] : 1940 Acct:[id number] Age/Sex: 84 / F Adm Date: 5 Loc: 3T Room: [address] [place] [address] Type: ADM IN Attending Dr: Jonathan Valenzuela MD Copies to: ~ Date of Service: 12/20/2024 Subjective Subjective Narrative: Seen and examined at bedside, reports less dyspneic this morning while ambulating in the room with walker bilateral lower extremity pedal edema slightly improved,. On room air with SpO2 in the high 90s. Denies chest pain, no palpitation. Exam Physical Exam Vital Signs: Temp Pulse Resp BP Pulse Ox O2 Del Method 97.7 F 75 18 131/76 96 Room Air 12/20/24 08:00 12/20/24 08:00 12/20/24 08:00 12/20/24 08:00 12/20/24 08:00 12/20/24 08:00 Narrative: CONST-alert, awake, cooperative, comfortable CARDIAC?normal rate, regular rhythm, normal S1 & S2. PULM?diminished without wheeze or rhonchi, RA, no accessory muscle use or cough noted ABD ? Soft. Bowel sounds are normal. No distention No tenderness EXTREM?+1 bilateral pedal edema, no calf pain or tenderness SKIN? W/D good turgor Objective Lab Results 12/20/24 12:15 12/20/24 12:15 Microbiology Results Microbiology 12/19/24 14:27 Nasopharyngeal SARS-CoV-2, Influenza & RSV (PCR) - Final Meds Allergies and Active Meds Allergies lenalidomide (From Revlimid) Allergy (Mild, Verified 12/19/24 11:48) Rash, itching oxybutynin Allergy (Unknown, Verified 12/19/24 11:48) Rash, rash, hives pregabalin (From Lyrica) Allergy (Unknown, Verified 12/19/24 11:48) double vision Active Meds: Active Medications Generic Name Dose Route Start Last Admin Trade Name Freq PRN Reason Stop Dose Admin Amlodipine Besylate 5 mg 12/19/24 17:00 12/20/24 08:20 Amlodipine 5 Mg Tablet PO 12/19/25 16:59 Not Given DAILY KARISSA Apixaban 2.5 mg 12/19/24 21:00 12/20/24 08:20 Apixaban 2.5 Mg Tablet PO 12/19/25 20:59 Not Given BID KARISSA Atorvastatin Calcium 40 mg 12/19/24 21:00 12/19/24 21:45 Atorvastatin 40 Mg Tablet PO 12/19/25 20:59 40 mg QPM KARISSA Administration Carvedilol 12.5 mg 12/19/24 17:00 12/20/24 07:37 Carvedilol 12.5 Mg Tablet PO 12/19/25 16:59 12.5 mg BID.WITH.MEALS KARISSA Administration Dextrose 0 gm 12/19/24 16:32 Dextrose 50% In Water 25 Gm/50 Ml Syringe IV-PUSH 12/19/25 16:31 PRN PRN Hypoglycemia Glucose 0 gm 12/19/24 16:32 Dextrose 40% Gel 15 Gm Tube PO 12/19/25 16:31 PRN PRN Hypoglycemia Hydralazine HCl 10 mg 12/19/24 16:31 Hydralazine 20 Mg/Ml Vial IV-PUSH 12/19/25 16:30 Q4H PRN if SBP > 185 Insulin Aspart 0 units 12/19/24 17:00 12/20/24 07:10 Insulin Aspart 300 Units/3 Ml SUBCUT 12/19/25 16:59 Not Given TID.WM.[facility] Protocol Sodium Chloride 0 ml 12/19/24 11:48 Sodium Chloride 0.9 % 10 Ml Syringe IV-PUSH 12/19/25 11:47 PRN PRN Flush A&P - Hospitalist Assessment/Plan (1) Acute on chronic diastolic (congestive) heart failure: (2) Dyspnea: Plan Suspecting acute on chronic HFpEF History of chronic kidney disease stage IV Dyspnea on exertion?slightly improved Reports less dyspneic this morning while ambulating in the room with walker bilateral lower extremity pedal edema slightly improved,. On room air with SpO2in the high 90s. Denies chest pain, no palpitation. * Nephrology consulted, administers 40 mg IV Lasix x 1, plan to start oral Lasix 40 mg daily in a.m. * EKG showed atrial fibrillation, heart rate 80 bpm. Nonspecific T wave abnormalities. * CXR with mild interstitial changes with trace pleural effusions. No consolidation to suggest pneumonia. * BNP 376.0, will hold off on starting diuretics until seen by nephrology * Echocardiogram on 11/18/2024 with EF of 60 to 65%. Mild mitral regurgitation * Start strict I's and O's, daily weight, fluid restriction * Creatinine 2.21 baseline ~2.0-2.5, avoid nephrotoxins, renally dose medications * Continue to monitor BMP Chronic conditions: 1. Type 2 diabetes?start Accu-Cheks before meals and at bedtime, SSI, consistent carbohydrate diet, hypoglycemic protocol 2. Atrial fibrillation/hyperlipidemia/CVA?resume home medications when verified CODE STATUS: DNR CCA without intubation discussed with patient and daughter DVT prophylaxis: On apixaban Attending Provider Attestation Attending Physician Attestation: Agree with above plan. Documented By: Alivia Arana APRN 12/20/24 1124 Signed By: <Electronically signed by RAMAKRISHNA Arana> 12/20/24 1522 <Electronically signed by Jonathan Valenzuela MD> 12/20/242039 [facility] Work Phone: [phone] Consult note Author Akin Suarez [facility] Note Date/Time December 20, 2024 1 1:58am [facility] [address] [place] [address] Nephrology Consult Note Signed Patient: Hailee Trivedi MR#: [id number] : 1940 Acct:[id number] Age/Sex: 84 / F Adm Date: 5 Loc: Room: [address] [place] [address] Type: ADM IN Attending Dr: Jonathan Valenzuela MD Copies to: MD Curt Corcoran MD Rahul Prasad, MD~ Providers Consult Date: 12/20/24 Requesting Provider: Jonathan Valenzuela MD Primary Care Provider: Curt Clark MD HPI Reason for Consult: CKD and fluid overload management. History of Present Illness: This is a 84-year-old female with medical history of multiple myeloma, DM, HTN, CVA, CHF, HLD, A-fib, nephrolithiasis was present to the emergency room for increased shortness of breath and leg swelling. Patient has a frequent hospitalization due to the congestive heart failure during the last couple months. She reported that she was recently admitted at [facility] and during hospitalization she was given IV Lasix and was noticed to have a worsening renal function. She was discharged home without Lasix. She reported after going home she was retaining fluid with increased leg swelling and shortness of breath. 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 She follows in our office for her CKD care and contact our office for increased shortness of breath and leg swelling. She was advised to come to the emergency room. On evaluation in the emergency room patient had a chest x-ray which showed interstitial changes with bilateral pleural effusion. She was also found to have elevated BNP 376. Patient reported that she is scheduled to have a cardioversion by her pre billing clinician Dr. Rhodes. Acid Conditioner consulted for CKD and fluid overload management. Patient was seen examined bedside reports she is feeling better than yesterday. Review of Systems Review of Systems All other systems reviewed & are negative unless noted below or in HPI Review of systems: Cardiovascular: denies any chest pain, palpitation Pulmonary: denies any cough, hemoptysis Gastrointestinal: denies any nausea, vomiting, diarrhea Neurological :denies any headache, numbness, weakness Endocrine: denies any polyuria, polydipsia Dermatological: denies any itching or rash [facility] Medical History Congestive heart failure (CHF) Multiple myeloma Trigger finger, left middle finger Type 2 diabetes mellitus with chronic kidney disease Diabetic nephropathy associated with type 2 diabetes mellitus Hypertensive chronic kidney disease with stage 1 through stage 4 chronic kidney disease, or unspecified chronic kidney disease Cerebrovascular accident (CVA) involving cerebellum COVID Vitamin D deficiency Secondary hyperparathyroidism of renal origin COVID-19 Afib CVA (cerebral vascular accident) CKD (chronic kidney disease) HTN (hypertension) Multiple myeloma Hyperlipidemia CKD (chronic kidney disease) stage 4, GFR 15-29 ml/min Surgical History Hx of lithotripsy History of [...] smoker Substance Use Type: None Meds Medications & Allergies Allergies lenalidomide (From Revlimid) Allergy (Mild, Verified 12/19/24 11:48) Rash, itching oxybutynin Allergy (Unknown, Verified 12/19/24 11:48) Rash, rash, hives pregabalin (From Lyrica) Allergy (Unknown, Verified 12/19/24 11:48) double vision Home Medications cholecalciferol (vitamin D3) 125 mcg (5,000 unit) tablet (Vitamin D3) 1,000 unitPO DAILY 08/10/18 [History Confirmed 12/19/24] atorvastatin 40 mg tablet 40 mg PO DAILY 08/23/18 [History Confirmed 12/19/24] cyanocobalamin (vitamin B-12) 1,000 mcg tablet 1,000 mcg PO DAILY 05/02/19 [History Confirmed 12/19/24] carvedilol 12.5 mg tablet (Coreg) 12.5 mg PO BID 30 days #60 tabs 11/07/19 [Rx Confirmed 12/19/24] insulin NPH isoph U-100 human 100 unit/mL subcutaneous suspension (Humulin N NPHU-100 Insulin (isophane susp)) 15 unit subcut BID 07/05/24 [History Confirmed 12/19/24] omega 2-mqy-gam-fish oil 1,000 mg (120 mg-180 mg) capsule (Fish Oil) 1 cap PO Q48HR 07/05/24 [History Confirmed 12/19/24] amlodipine 5 mg tablet 5 mg PO DAILY #90 tabs 08/20/24 [Rx Confirmed 12/19/24] sodium bicarbonate 650 mg tablet 1,300 mg (2 x 650 mg) PO TID #0 tabs 09/18/24 [Rx Confirmed 12/19/24] magnesium chloride 71.5 mg (magnesium chloride) tablet,delayed release (Slow- Mag) 71.5 mg PO DAILY #60 tabs 09/19/24 [Rx Confirmed 12/19/24] docusate sodium 100 mg capsule (Colace) 100 mg PO DAILY PRN constipation 10/30/24 [History Confirmed 12/19/24] ferrous sulfate 325 mg (65 mg iron) tablet,delayed release 325 mg PO DAILY 10/30/24 [History Confirmed 12/19/24] omeprazole 20 mg capsule,delayed release 20 mg PO DAILY 10/30/24 [History Confirmed 11/27/24] apixaban 5 mg tablet (Eliquis) 2.5 mg PO BID 12/19/24 [History Confirmed 12/19/24] Active Medications: Active Medications Amlodipine Besylate (Amlodipine 5 Mg Tablet) 5 mg PO DAILY [facility] Stop: 12/19/25 16:59 Last Admin: 12/20/24 08:20 Dose: Not Given Apixaban (Apixaban 2.5 Mg Tablet) 2.5 mg PO BID [facility] Stop: 12/19/25 20:59 Last Admin: 12/20/24 08:20 Dose: Not Given Atorvastatin Calcium (Atorvastatin 40 Mg Tablet) 40 mg PO QPM [facility] Stop: 12/19/25 20:59 Last Admin: 12/19/24 21:45 Dose: 40 mg Carvedilol (Carvedilol 12.5 Mg Tablet) 12.5 mg PO BID.WITH.MEALS [facility] Stop: 12/19/25 16:59 Last Admin: 12/20/24 07:37 Dose: 12.5 mg Dextrose (Dextrose 50% In Water 25 Gm/50 Ml Syringe) 0 gm IV-PUSH PRN PRN PRN Reason: Hypoglycemia Stop: 12/19/25 16:31 Glucose (Dextrose 40% Gel 15 Gm Tube) 0 gm PO PRN PRN PRN Reason: Hypoglycemia Stop: 12/19/25 16:31 Hydralazine HCl (Hydralazine 20 Mg/Ml Vial) 10 mg IV-PUSH Q4H PRN PRN Reason: if SBP > 185 Stop: 12/19/25 16:30 Insulin Aspart (Insulin Aspart 300 Units/3 Ml) 0 units SUBCUT TID.[facility]; Protocol Stop: 12/19/25 16:59 Last Admin: 12/20/24 07:10 Dose: Not Given Sodium Chloride (Sodium Chloride 0.9 % 10 Ml Syringe) 0 ml IV-PUSH PRN PRN PRN Reason: Flush Stop: 12/19/25 11:47 Exam Physical Exam Vital Signs: Temp Pulse Resp BP Pulse Ox O2 Del Method 97.7 F 75 18 131/76 96 Room Air 12/20/24 08:00 12/20/24 08:00 12/20/24 08:00 12/20/24 08:00 12/20/24 08:00 12/20/24 08:00 Narrative: General: Appears comfortable and not in distress Heart: S1-S2, no rub Lung: Bilateral air entry, no wheezing or crackles Abdomen: Soft, positive bowel sounds Extremities: 1+ edema, no cyanosis Head: Atraumatic, normocephalic Ear: No gross hearing Deficit or external ear redness Eyes: No pallor or redness Neck: No JVD or visible mass Skin: No rashes , warm to touch FOOD [employer]NER: Awake,Alert, following simple command Musculoskeletal: No swelling or limitation of movement of the large joints Psychiatric: Cooperative, normal mood and affect Results - Nephrology Labs 12/19/24 14:08 12/19/24 14:08 Labs: 12/19/24 14:08 BUN 26 H Creatinine 2.38 H Albumin 3.7 Radiology Impressions Impressions - last 24 hours: Impressions Chest X-Ray 12/19/24 13:32 IMPRESSION: MILD INTERSTITIAL CHANGES WITH TRACE PLEURAL EFFUSIONS. NO CONSOLIDATION TO SUGGEST PNEUMONIA. Impression dictated by: Pj Palm Jr., D.O.12/19/2024 2:57 PM Dictation Location: [place] [id number] Any impression(s) listed above is documentation that was entered by the reading physician into a diagnostic report(s) for Hailee Trivedi. I have reviewed the report(s) and am incorporating any findings in the treatment plan of this patient where applicable. A&P - Nephrology Assessment/Plan (1) CKD (chronic kidney disease) stage 4, GFR 15-29 ml/min: Assessment/Problem Details: She has a CKD due to the longstanding DM and myeloma with baseline serum creatinine around 2.3 to 2.7 mg/dL. (2) Acute on chronic diastolic (congestive) heart failure: Assessment/Problem Details: Patient presented with increased shortness of breath and leg swelling. Her echocardiogram showed a preserved EF with EF 55 to 60%. (3) Type 2 diabetes mellitus with chronic kidney disease: Assessment/Problem Details: She has insulin-dependent type 2 diabetes mellitus. She takes insulin NPH at home. (4) Hypertensive chronic kidney disease with stage 1 through stage 4 chronic kidney disease, or unspecified chronic kidney disease: Assessment/Problem Details: Her blood pressure is controlled. She takes amlodipine and carvedilol at home. (5) Multiple myeloma: Assessment/Problem Details: She has a multiple myeloma and follows with oncology. Plan * Will give Lasix 40 mg IV x 1 dose today and start oral Lasix 40 mg p.o. in a.m. * Will continue current dose of the amlodipine and carvedilol. * Continue the management as per the primary hospitalist team. The goal of blood sugar is between 100 to 150 mg/d. * Will resume home dose of the sodium bicarbonate in AM. * Check renal function daily and monitor input output * Thanks for consult. Will continue follow-up with you. Please feel free to call us with any question. Documented By: Akin Suarez MD 12/20/24 0830 Signed By: <Electronically signed by Akin Suarez MD> 12/20/24 1159 [facility] Work Phone: [phone]) 796-647001-24-2025 History of Present illness Narrative* Fadia Grace CMA - 12/07/2024 2:30 PM EST Patient here for EKG visit ordered by Dr. Rhodes due to A-Fib. Dr. Rhodes in suite to review EKG prior to discharge. Patient here due to being out of rhythm per her BP machine. Medication list Updated verbally. Patient has complaints of shortness of breath with exertion and fatigue. Patienthas no other cardiac complaints at time of visit. Patient states that this started in September whenshe had a second round of covid. She said she had an echocardiogram while in the [facility] on 11/21/24. To Dr. Rhodes to read Vitals: 12/07/24 1542 BP: 120/56 BP Location: Right arm Patient Position: Sitting Pulse: 86 Weight: 85.3 kg (188 lb) Height: 1.626 m (5' 4 ) EKG done in office today documented in this [facility] Work Phone: 1([phone] 122-902612-19-2024 History of Present illness Narrative* Elicia Rhodes MD - 11/01/2024 1:30 PM EST Grzegorz Trivedi is a 84 y.o. female Chief Complaint Follow-up HPI Patient is here for follow-up under management for persistent atrial fibrillation, long-term anticoagulation, hypertension. Since last time I saw her she reports she was in the hospital on 2 occasionthe initial 1 with COVID the second 1 with apparently lower GI bleed with the finding of colon polyp. During that hospitalization her creatinine around 2.5 and she was switched to Eliquis 2.5 mg twice daily since then she has not had any bleeding. She admit to limited exercise tolerance. She denieschest pain, palpitation, lightheadedness, dizziness or syncope. ASSESSMENT: 1. Persistent atrial fibrillation. Currently in normal sinus rhythm. She is on Eliquis 2.5 mg twicedaily 2. Remote evaluation for chest pain, resolved. No recurrence. She did have noninvasive assessment at [facility], which was negative. Couple of years ago. She declined stress testing in the past 3. Hypertension, controlled. 4. Hyperlipidemia, on atorvastatin and fish oil. No recent lab available 5. Chronic kidney disease. Approaching stage IV 6. Multiple myeloma. Patient report in remission 7. Prior presentation with cerebellar infarct. Currently on Eliquis. I believe aspirin was discontinued recently due to GI bleed 8. Moderate aortic regurgitation no recent echo recent echo noted 9. Moderate obesity with mild weight gain recently 10.There had been some notation in the chart that she had dilated aortic root. Recent echo showed aortic root 2.7 cm Plan 1. I had lengthy discussion with the patient and her daughter regarding anticoagulation we discussed aspirin, Eliquis versus Watchman device following lengthy discussion the patient elected to remainon Eliquis 2.5 mg twice daily 2. Risk, benefit alternative anticoagulation reviewed with patient at great length she understood and agreed 3. I advised her to notify me if she had any bleeding or if she decided to consider Watchman device 4. I reviewed with her her recent hospitalization record 5. I advised her to continue her efforts to lose weight and exercise 6. We discussed stress testing again but the patient declined 7. I reviewed with her her recent echo 8. I will see her in 6 months Review of Systems All other systems reviewed and are negative. Vitals: 11/01/24 1340 BP: 102/60 BP Location: Left arm Patient Position: Sitting Pulse: 84 Weight: 87.1 kg (192 lb) Height: 1.626 m (5' 4 ) [...] Allergies Oxybutynin Current Medications Current Outpatient Medications: amLODIPine (Norvasc) 5 mg tablet, Take 1 tablet (5 mg) by mouth once daily., Disp: 30 tablet, Rfl: 11 atorvastatin (Lipitor) 40 mg tablet, TAKE 1 TABLET DAILY, Disp: 90 tablet, Rfl: 3 carvedilol (Coreg) 12.5 mg tablet, Take 1 tablet (12.5 mg) by mouth 2 times a day., Disp: 180 tablet, Rfl: 3 cholecalciferol (Vitamin D-3) 25 MCG (1000 UT) tablet, Take 1 tablet (25 mcg) by mouth once daily.,Disp: , Rfl: docusate sodium (Colace) 100 mg capsule, Take 1 capsule (100 mg) by mouth once daily., Disp: , Rfl: escitalopram (Lexapro) 10 mg tablet, Take 1 tablet (10 mg) by mouth once daily., Disp: , Rfl: ferrous sulfate, 325 mg ferrous sulfate, tablet, Take 1 tablet (325 mg) by mouth once daily with breakfast., Disp: , Rfl: fish oil concentrate (Romney-3) 120-180 mg capsule, Take 1 capsule (1 g) by mouth 2 times a day., Disp: , Rfl: insulin NPH, Isophane, (HumuLIN N,NovoLIN N) 100 unit/mL injection, Inject 15 Units under the skin once daily in the morning. Take as directed per insulin instructions., Disp: , Rfl: omeprazole (PriLOSEC) [address] capsule, Take 1 capsule (20 mg) by mouth once daily., Disp: , Rfl: Slow-Mag 71.5 mg tablet,delayed release (DR/EC), Take 1 tablet (71.5 mg) by mouth early in the morning.., Disp: , Rfl: apixaban (Eliquis) 2.5 mg tablet, Take 1 tablet (2.5 mg) by mouth 2 times a day., Disp: 180 tablet,Rfl: 3 Assessment/Plan 1. Persistent atrial fibrillation with RVR (Multi) Follow Up In Cardiology apixaban (Eliquis) 2.5 mg tablet 2. Pulmonary hypertension (Multi) 3. Mixed hyperlipidemia 4. Ascending aorta dilation (CMS-HCC) 5. Essential hypertension Follow Up In Cardiology 6. Stage 3a chronic kidney disease (Multi) 7. Shortness of breath at rest 8. Gastrointestinal hemorrhage, unspecified gastrointestinal hemorrhage type 9. BMI 32.0-32.9,adult 10. Never smoked tobacco Scribe Attestation By signing my name below, IDaisy LPN, Scribe attest that this documentation has [...] exam, discussion and plan. documented in this [facility] Work Phone: 1(911) 911-546212-19-2024 Instructions* Patient Instructions* Daisy Mane LPN - 11/01/2024 1:30 PM EST Please bring all medicines, vitamins, and herbal supplements with you when you come to the office. Prescriptions will not be filled unless you are compliant with your follow up appointments or have a follow up appointment scheduled as per instruction of your physician. Refills should be requested at the time of your visit. BMI was above normal measurement. Current weight: 87.1 kg (192 lb) Weight change since last visit (-) denotes wt loss -8 lbs Weight loss needed to achieve BMI 25: 46.7 Lbs Weight loss needed to achieve BMI 30: 17.6 Lbs Provided instructions on dietary changes. Watchman discussed Follow up documented in this [facility] Work Phone: 1(812) 478-798112-17-2024 Evaluation note* Diagnosis Onset Date Resolution Status Admit Date Anxiety acute October 30, 2024 1:58pm CKD (chronic kidney disease) stage 4, GFR 15-29 ml/min acute Decemb er 2023 1:58pm UGI bleed acute October 30, 2024 1:58pm Paroxysmal atrial fibrillation inact emma October 30, 2024 1:58pm Acute on chronic diastolic (congestive) heart failure acute 2024 10:36am CKD (chronic kidney disease) stage 4, GFR 15-29 ml/min acute 2024 10:36am Cerebellar stroke, acute acute December 12, 2024 1:03pm CKD (chronic kidney disease) stage 4, GFR 15-29 ml/min acute 2024 1:03pm Hyperlipidemia acute December 122024 1:03pm 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 December 12 1:03pm Atrial fibrillation resolved 2024 1:03pm Diabetes mellitus type II, controlled resolved December 12 1:03pm HTN (hypertension) resolved 2024 1:03pm Multiple myeloma in remission resolv ed December 12, 2024 1:03pm Unsteady gait resolved November 1:03pm Anemia inactive December 12, 2024 1:03pm B12 deficiency anemia inactive Nov 1:03pm Dizziness deleted December 12, 2024 1:03pm Hearing loss inactive November 1:03pm Multiple myeloma inactive December 12, 2024 1:03pm Steroid-induced hyperglycemia inacti ve December 12, 2024 1:03pm Transient left leg weakness inactive December 12, 2024 1:03pm Double vision deleted November 1:03pm Left facial numbness deleted 2024 1:03pm Shoulder pain deleted November 1:03pm Weakness deleted December 12, 2024 1:03pm Acute on chronic diastolic (congestive) heart failure acute 2024 4:18pm CKD (chronic kidney disease) stage 4, GFR 15-29 ml/min acute 2024 4:18pm Dyspnea acute December 19, 2024 4:18pm Fluid retention acute December 19, 2024 4:18pm Heart failure acute December 4:18pm [facility] Work Phone: [phone]) 800-779312-17-2024 Evaluation note* Diagnosis Onset Date Resolution Status Admit Date Anxiety acute October 30, 2024 1:58pm CKD (chronic kidney disease) stage 4, GFR 15-29 ml/min acute Decemb er 2023 1:58pm UGI bleed acute October 30, 2024 1:58pm Paroxysmal atrial fibrillation inact emma October 30, 2024 1:58pm Acute on chronic diastolic (congestive) heart failure acute 2024 10:36am CKD (chronic kidney disease) stage 4, GFR 15-29 ml/min acute 2024 10:36am Cerebellar stroke, acute acute December 12, 2024 1:03pm CKD (chronic kidney disease) stage 4, GFR 15-29 ml/min acute 2024 1:03pm Hyperlipidemia acute December 122024 1:03pm 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 December 12 1:03pm Atrial fibrillation resolved 2024 1:03pm Diabetes mellitus type II, controlled resolved December 12 1:03pm HTN (hypertension) resolved 2024 1:03pm Multiple myeloma in remission resolv ed December 12, 2024 1:03pm Unsteady gait resolved November 1:03pm Anemia inactive December 12, 2024 1:03pm B12 deficiency anemia inactive Nov 1:03pm Dizziness deleted December 12, 2024 1:03pm Hearing loss inactive November 1:03pm Multiple myeloma inactive December 12, 2024 1:03pm Steroid-induced hyperglycemia inacti ve December 12, 2024 1:03pm Transient left leg weakness inactive December 12, 2024 1:03pm Double vision deleted November 1:03pm Left facial numbness deleted 2024 1:03pm Shoulder pain deleted November 1:03pm Weakness deleted December 12, 2024 1:03pm Acute on chronic diastolic (congestive) heart failure acute 2024 4:18pm CKD (chronic kidney disease) stage 4, GFR 15-29 ml/min acute 2024 4:18pm Dyspnea acute December 19, 2024 4:18pm Fluid retention acute December 19, 2024 4:18pm Hypertensive chronic kidney disease with stage 1 through stage 4 chronic ki acute December 19, 2024 4:18pm Multiple myeloma acute December 19, 2024 4:18pm Type 2 diabetes mellitus wit h chronic kidney disease acute December 19, 2024 4:18pm Heart failure deleted December 4:18pm [facility] Work Phone: [phone]) 773-774912-17-2024 Evaluation note* Diagnosis Onset Date Resolution Status Admit Date Anxiety acute October 30, 2024 1:58pm CKD (chronic kidney disease) stage 4, GFR 15-29 ml/min acute Decemb er 2023 1:58pm UGI bleed acute October 30, 2024 1:58pm Paroxysmal atrial fibrillation inact emma October 30, 2024 1:58pm Acute on chronic diastolic (congestive) heart failure acute 2024 10:36am CKD (chronic kidney disease) stage 4, GFR 15-29 ml/min acute 2024 10:36am Cerebellar stroke, acute acute December 12, 2024 1:03pm CKD (chronic kidney disease) stage 4, GFR 15-29 ml/min acute 2024 1:03pm Hyperlipidemia acute December 122024 1:03pm 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 December 12 1:03pm Atrial fibrillation resolved 2024 1:03pm Diabetes mellitus type II, controlled resolved December 12 1:03pm HTN (hypertension) resolved Novuar y 2024 1:03pm Multiple myeloma in remission resolv ed December 12, 2024 1:03pm Unsteady gait resolved November 1:03pm Anemia inactive December 12, 2024 1:03pm B12 deficiency anemia inactive Nov 1:03pm Dizziness deleted December 12, 2024 1:03pm Hearing loss inactive November 1:03pm Multiple myeloma inactive December 12, 2024 1:03pm Steroid-induced hyperglycemia inacti ve December 12, 2024 1:03pm Transient left leg weakness inactive December 12, 2024 1:03pm Double vision deleted November 1:03pm Left facial numbness deleted 2024 1:03pm Shoulder pain deleted November 1:03pm Weakness deleted December 12, 2024 1:03pm Acute on chronic diastolic (congestive) heart failure acute 2024 4:18pm CKD (chronic kidney disease) stage 4, GFR 15-29 ml/min acute 2024 4:18pm Dyspnea acute December 19, 2024 4:18pm Fluid retention acute December 19, 2024 4:18pm Hypertensive chronic kidney disease with stage 1 through stage 4 chronic ki acute December 19, 2024 4:18pm Multiple myeloma acute December 19, 2024 4:18pm Type 2 diabetes mellitus wit h chronic kidney disease acute December 19, 2024 4:18pm Heart failure deleted December 4:18pm CKD (chronic kidney disease) stage 4, GFR 15-29 ml/min acute 2024 2:26pm Hypertensive chronic kidney disease with stage 1 through stage 4 chronic ki acute December 2:26pm Multiple myeloma acute December 25, 2024 2:26pm Secondary hyperparathyroidis m of renal origin acute December 25, 2 025 2:26pm Type 2 diabetes mellitus wit h chronic kidney disease acute December 25, 2024 2:26pm Vitamin D deficiency acute Febr 2024 2:26pm [facility] Work Phone: 1([phone]) 744-188712-17-2024 Evaluation note* Diagnosis Onset Date Resolution Status Admit Date Anxiety acute October 30, 2024 1:58pm CKD (chronic kidney disease) stage 4, GFR 15-29 ml/min acute Decemb er 2023 1:58pm UGI bleed acute October 30, 2024 1:58pm Paroxysmal atrial fibrillation inact emma October 30, 2024 1:58pm Acute on chronic diastolic (congestive) heart failure acute 2024 10:36am CKD (chronic kidney disease) stage 4, GFR 15-29 ml/min acute 2024 10:36am Cerebellar stroke, acute acute December 12, 2024 1:03pm CKD (chronic kidney disease) stage 4, GFR 15-29 ml/min acute 2024 1:03pm Hyperlipidemia acute December 122024 1:03pm 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 December 12 1:03pm Atrial fibrillation resolved 2024 1:03pm Diabetes mellitus type II, controlled resolved December 12 1:03pm HTN (hypertension) resolved 2024 1:03pm Multiple myeloma in remission resolv ed December 12, 2024 1:03pm Unsteady gait resolved November 1:03pm Anemia inactive December 12, 2024 1:03pm B12 deficiency anemia inactive Nov 1:03pm Dizziness deleted December 12, 2024 1:03pm Hearing loss inactive November 1:03pm Multiple myeloma inactive December 12, 2024 1:03pm Steroid-induced hyperglycemia inacti ve December 12, 2024 1:03pm Transient left leg weakness inactive December 12, 2024 1:03pm Double vision deleted November 1:03pm Left facial numbness deleted 2024 1:03pm Shoulder pain deleted November 1:03pm Weakness deleted December 12, 2024 1:03pm Acute on chronic diastolic (congestive) heart failure acute 2024 4:18pm CKD (chronic kidney disease) stage 4, GFR 15-29 ml/min acute 2024 4:18pm Dyspnea acute December 19, 2024 4:18pm Fluid retention acute December 19, 2024 4:18pm Hypertensive chronic kidney disease with stage 1 through stage 4 chronic ki acute December 19, 2024 4:18pm Multiple myeloma acute December 19, 2024 4:18pm Type 2 diabetes mellitus wit h chronic kidney disease acute December 19, 2024 4:18pm Heart failure deleted December 4:18pm CKD (chronic kidney disease) stage 4, GFR 15-29 ml/min acute 2024 2:26pm Hyperlipidemia acute December 152024 2:26pm Hypertensive chronic kidney disease with stage 1 through stage 4 chronic ki acute December 2:26pm Metabolic acidemia acute 2024 2:26pm Multiple myeloma acute December 25, 2024 2:26pm Secondary hyperparathyroidis m of renal origin acute December 25, 2 025 2:26pm Type 2 diabetes mellitus wit h chronic kidney disease acute December 25, 2024 2:26pm Kidney stone inactive December 2:26pm [facility] Work Phone: 1(755) 310-524512-17-2024 Evaluation note* Diagnosis Onset Date Resolution Status Admit Date Anxiety inactive October 30, 2024 1:58pm CKD (chronic kidney disease) stage 4, GFR 15-29 ml/min inactive Decemb er 2023 1:58pm Paroxysmal atrial fibrillation inact emma October 30, 2024 1:58pm UGI bleed inactive October 30, 2024 1:58pm Acute on chronic diastolic (congestive) heart failure resolved 2024 10:36am CKD (chronic kidney disease) stage 4, GFR 15-29 ml/min inactive 2024 10:36am Atrial fibrillation resolved 2024 1:03pm Diabetes mellitus type II, controlled resolved December 12 1:03pm HTN (hypertension) resolved 2024 1:03pm Multiple myeloma in remission resolv ed December 12, 2024 1:03pm Unsteady gait resolved November 1:03pm Anemia inactive December 12, 2024 1:03pm B12 deficiency anemia inactive Duarte lund 2024 1:03pm Cerebellar stroke, acute inactive December 12, 2024 1:03pm CKD (chronic kidney disease) stage 4, GFR 15-29 ml/min inactive Suyapa baum 2024 1:03pm Dizziness deleted December 12, 2024 1:03pm Hearing loss inactive November 1:03pm Hyperlipidemia inactive December 122024 1:03pm 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 December 12 1:03pm Multiple myeloma inactive December 12, 2024 1:03pm Steroid-induced hyperglycemia inacti ve December 12, 2024 1:03pm Transient left leg weakness inactive December 12, 2024 1:03pm Double vision deleted November 1:03pm Left facial numbness deleted 2024 1:03pm Shoulder pain deleted November 1:03pm Weakness deleted December 12, 2024 1:03pm Acute on chronic diastolic (congestive) heart failure resolved 2024 4:18pm Dyspnea resolved December 19, 2024 4:18pm Fluid retention resolved December 19, 2024 4:18pm CKD (chronic kidney disease) stage 4, GFR 15-29 ml/min inactive 2024 4:18pm Hypertensive chronic kidney disease with stage 1 through stage 4 chronic ki inactive December 19, 2024 4:18pm Multiple myeloma inactive December 19, 2024 4:18pm Type 2 diabetes mellitus wit h chronic kidney disease inactive December 19, 2024 4:18pm Heart failure deleted December 4:18pm Secondary hyperparathyroidis m of renal origin acute December 25, 2 025 2:26pm CKD (chronic kidney disease) stage 4, GFR 15-29 ml/min inactive 2024 2:26pm Hyperlipidemia inactive December 152024 2:26pm Hypertensive chronic kidney disease with stage 1 through stage 4 chronic ki inactive December 2:26pm Kidney stone inactive December 2:26pm Metabolic acidemia inactive 2024 2:26pm Multiple myeloma inactive December 25, 2024 2:26pm Type 2 diabetes mellitus wit h chronic kidney disease inactive December 25, 2024 2:26pm Acute on chronic diastolic (congestive) heart failure resolved Febr blayne 2024 10:49am CKD (chronic kidney disease) stage 4, GFR 15-29 ml/min inactive ry 2024 10:49am 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 Yuniel Huggins DO sent at 10/22/2024 12:42 PM EST ----- Please let patient know she had mild chronic gastritis and a small fundic gland polyp which was benign. Recommend she take Prilosec [id number] if not already on that or something similar. Thanks, Dr. Gómez * Telephone Encounter - Shilpa Martinez CMA - 10/23/2024 11:43 AM EST Spoke with patient regarding pathology results. Patient verbally understood with no further questions. Informed patient of Dr. Huggins's recommendations. documented in this encounterAdams County HospitalQRuso [facility] [id number] Telephone encounter Note* Telephone Encounter - Shilpa Martinez CMA - 10/23/2024 11:43 AM EST ----- Message from Dr. Yuniel Huggins DO sent at 10/22/2024 12:42 PM EST ----- Please let patient know she had mild chronic gastritis and a small fundic gland polyp which was benign. Recommend she take Prilosec [id number] if not already on that or something similar. ThanksDr. Gómez [facility]12-10-2024 Telephone encounter Note* Telephone Encounter - Shilpa Martinez CMA - 10/23/2024 11:43 AM EST Spoke with patient regarding pathology results. Patient verbally understood with no further questions. Informed patient of Dr. Huggins's recommendations. [facility]11-05-2024 Consult note Author Cristiano Diaz [facility] September 18, 2024 1:50pm Note Date/Time September 18, 2024 1 1:34am [facility] [address] [place] [address] Physiatry (Rehab) Consult Note Signed Patient: Hailee Trivedi MR#: [id number] : 1940 Acct:[id number] Age/Sex: 84 / F Adm Date: 4 Loc: Room: [address] [place] [address] Type: ADM INOo Attending Dr: Trent Patterson [...] well. She had also recently been to [facility] and was diagnosed with a UTI. [...] negative unless noted below or in [facility] Medical History Multiple myeloma Type 2 [...] subcut BID 07/05/24 [History Confirmed 09/17/24] omega 7-lbs-fls-fish oil 1,000 mg (120 mg-180 mg) capsule [...] % (Auto) 87.9 Lymph % (Auto) 4.8 Petroleum % (Auto) 4.9 Eos % (Auto) 2.1 Baso % (Auto) 0.3 Nucleat RBC Rel Count 0.0 Neut # (Auto) 10.6 H Lymph # (Auto) 0.6 L Petroleum # (Auto) 0.6 Eos # (Auto) 0.3 [...] Appearance Clear Urine pH 5.5 Ur Specific [place] 1.023 Urine Protein 50 H Urine Glucose [...] MPV Neut % (Auto) Lymph % (Auto) Petroleum % (Auto) Eos % (Auto) Baso % (Auto) Nucleat RBC Rel Count Neut # (Auto) Lymph # (Auto) Petroleum # (Auto) Eos # (Auto) Baso # [...] Color Urine Appearance Urine pH Ur Specific [place] Urine Protein Urine Glucose (UA) Urine Ketones [...] % (Auto) 81.6 Lymph % (Auto) 6.6 Petroleum % (Auto) 8.7 Eos % (Auto) 2.3 Baso % (Auto) 0.8 Nucleat RBC Rel Count 0.0 Neut # (Auto) 8.0 H Lymph # (Auto) 0.7 L Petroleum # (Auto) 0.9 H Eos # (Auto) [...] Color Urine Appearance Urine pH Ur Specific [place] Urine Protein Urine Glucose (UA) Urine Ketones [...] time. I would recommend discharge to a residential facility for continued therapy services. -Continue early mobility and OOB therapy. -Thank you for the consult. Patient was personally seen by me, Dr. Diaz, on the day of encounter, reviewed the history and the relevant portions of the chart, including current orders, allied health and retirement consultant notes, labs/imaging and performed chahal elements of exam and I formulated the plan of care and facilitated the medical decision making. I completed a substantive portion of this encounter, the medical decision making portion of this note in its entirety, including Allied health note review, nursing note review, retirement consultant note review, discussion with nursing and case management, and more than 50% of my time was spent on counseling and coordination of care, time spent 65 minutes Documented By: Cristiano Diaz MD [id number] Signed By: <Electronically signed by Cristiano Diaz MD> 09/18/24 8356 [facility] Work Phone: 1(962) 641-786011-05-2024 Progress note Author Trent aPtterson [facility] September 18, 2024 1:48pm Note Date/Time September 18, 2024 1 :41pm [facility] [address] [place] [address] Hospitalist Progress Note Signed Patient: Hailee Trivedi MR#: [id number] : 1940 Acct:[id number] Age/Sex: 84 / F Adm Date: 4 Loc: Room: [address] [place] [address] Type: ADM INOo Attending Dr: Trent Patterson [...] of care and confirmed it with the 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 This patient presented to the emergency department complaining of fatigue, diarrhea, lower abdominal pain. She states that she recovered from COVID about 2 weeks ago. This past Tuesday she presented herself to [facility] and was diagnosed with a UTI and [...] KARISSA Administration Aspirin 81 mg 09/18/24 09:00 11/05/24 08:44 Aspirin 81 Mg Tab.Chew PO 09/18/25 [...] Insuln.Pen SUBCUT 09/18/25 07:59 Not Given TID.WM.[facility] Protocol Insulin Human NPH 15 units 09/18/24 09:00 09/18/24 08:45 Insulin Nph Human Isophane 300 Units/3 Ml Insuln.Pen SUBCUT 09/18/25 08:59 15 units BID [facility] [facility] Administration Rivaroxaban 15 mg 09/18/24 17:00 Rivaroxaban 15 Mg Tablet PO 09/18/25 16:59 DAILY.WITH.SUPPER [facility] Sodium Bicarbonate 1,300 mg 09/18/24 14:00 Sodium Bicarbonate 650 Mg Tablet PO 09/18/25 13:59 QID KARISSA Sodium Chloride 0 ml 09/17/24 20:42 09/18/24 02:47 Sodium Chloride 0.9 % 10 Ml Syringe IV-PUSH 09/17/25 20:41 10 ml PRN PRN Administration Flush Sodium Chloride 0 ml 09/18/24 06:00 09/18/24 06:14 Sodium Chloride 0.9 % 10 Ml Syringe IV-PUSH 09/18/25 05:59 Not Given QSHIFT [facility] A&P - Hospitalist Assessment/Plan (1) Chest pain: (2) CKD (chronic kidney disease) stage 4, GFR 15-29 ml/min: (3) Weakness: Plan . Documented By: Trent Patterson MD 09/18/24 2687 Signed By: <Electronically signed by Trent Patterson MD> 09/18/24 1348 <Electronically signed by DO MARK Everett> 09/18/24 1342 [facility] Work Phone: 1(698) 559-547911-05-2024 History and physical note Author Pool Buck [facility] September 18, 2024 5:23am Note Date/Time September 18, 2024 1 :33am [facility] [address] [place] [address] Hospitalist H&P Signed Patient: Hailee Trivedi MR#: [id number] : 1940 Acct:[id number] Age/Sex: 84 / F Adm Date: 4 Loc: Room: [address] [place] [address] Type: ADM INOo Attending Dr: Pool Buck MD Copies to: MD Curt Boogie MD Paula G Smith, STRATEGIES ANALYST~ HPI DATE OF EXAMINATION: 09/18/24 CHIEF COMPLAINT: [...] stools are black. She reports going to [facility] emergency room Tuesday and they diagnosed her [...] 30.4. ABG with a pH of 7.34, zkikdo19.9. CMP with a serum bicarb of 17.5, [...] be admitted as observation to the [facility] floor Review of Systems Review of Systems Review of systems: A 10 point review of systems was obtained, negative unless noted in the HPI or below. [facility] Medical History Multiple myeloma Type 2 [...] Heart disease Son Heart disease [facility] Problem: Diagnosed with Cancer Diabetes Sister Diabetes [...] subcut BID 07/05/24 [History Confirmed 09/17/24] omega 2-qiz-mdg-fish oil 1,000 mg (120 mg-180 mg) capsule [...] % (Auto) 4.8 % (.) 09/17/24 21:16 Petroleum % (Auto) 4.9 % (.) 09/17/24 21:16 Eos % (Auto) 2.1 % (.) 09/17/24 21:16 Baso % (Auto) 0.3 % (.) 09/17/24 21:16 Nucleat RBC Rel Count 0.0 /100 WBC (0-0.5) 09/17/24 21:16 Neut # (Auto) 10.6 x10E3/uL (1.8-7.7) H 09/17/24 21:16 Lymph # (Auto) 0.6 x10E3/uL (1.00-4.8) L 09/17/24 21:16 Petroleum # (Auto) 0.6 x10E3/uL (0.0-0.8) 09/17/24 21:16 [...] pH 5.5 (5.0-9.0) 09/17/24 21:56 Ur Specific [place] 1.023 (1.001-1.030) 09/17/24 21:56 Urine Protein 50 [...] (# of days): 1 Documented By: Roseline Overton, RAMAKRISHNA 09/18/24 0132 Signed By: <Electronically signed by RAMAKRISHNA Overton> 09/18/24 0154 <Electronically signed by Pool Buck MD> 09/18/24 0523 [facility] Work Phone: 1([phone]) 323-870811-05-2024 Evaluation note* Diagnosis Onset Date Resolution Status Admit Date CKD (chronic kidney disease) stage 4, GFR 15-29 ml/min acute Novemb er 2023 12:41am Atrial fibrillation resolved Novem 2023 12:41am Chest pain resolved September 18, 2024 12:41am Diabetes mellitus type II, controlled resolved September 18 12:41am Diabetic neuropathy resolved Novem 2023 12:41am Dyspnea resolved September 18, 2024 12:41am HTN (hypertension) resolved Novemb er 2023 12:41am Hyperlipidemia resolved September 182023 12:41am Hypomagnesemia resolved September 182023 12:41am Impaired mobility and activities of daily living resolved Novem 2023 12:41am Multiple myeloma in remission resolv ed September 18, 2024 12:41am Weakness resolved September 18, 2024 12:41am Anxiety acute October 30, 2024 1:58pm CKD (chronic kidney disease) stage 4, GFR 15-29 ml/min acute Decemb er 2023 1:58pm UGI bleed acute October 30, 2024 1:58pm Paroxysmal atrial fibrillation inact emma October 30, 2024 1:58pm [facility] Work Phone: 1([phone] 262-709906-04-2024 History of Present illness Narrative* Elicia Rhodes [...] recurrence. She did have noninvasive assessment at [facility], which was negative. Couple of years ago. [...] once daily.,Disp: , Rfl: fish oil concentrate (Romney-3) 120-180 mg capsule, Take 1 capsule (1 [...] recurrence. She did have noninvasive assessment at [facility], which was negative. Couple of years ago. [...] once daily.,Disp: , Rfl: fish oil concentrate (Romney-3) 120-180 mg capsule, Take 1 capsule (1 [...] exam, discussion and plan. documented in this [facility] Work Phone: 1(389) 871-387106-04-2024 Instructions* Patient Instructions* Daisy Mane LPN - [...] through Care Everywhere. 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 Will see him as scheduled on 12/05. 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 Had treated neck in the past. Pt tolerated well. [facility] Other 12-04-2023 Evaluation note* Encounter Date Diagnosis Assessment Notes Treatment Notes Treatment Clinical Notes Oct, Type 2 diabetes mellitus with hyperglycemia (ICD-10 - E11.65) [facility] Other 11-30-2023 Evaluation note* Encounter Date Diagnosis Assessment Notes Treatment Notes Treatment Clinical Notes Sep, Type 2 diabetes mellitus with hyperglycemia (ICD-10 - E11.65) [facility] Other 11-21-2023 History of Present illness Narrative* [...] dizziness or syncope. [facility] elevated [...] recurrence. She did have noninvasive assessment at [facility], which was negative. Couple of years ago. [...] once daily.,Disp: , Rfl: fish oil concentrate (Romney-3) 120-180 mg capsule, Take 1 capsule (1 [...] chronic kidney disease (CMS/HCC) [facility] Phone: 1(578) 283-646211-21-2023 Instructions* Patient Instructions* Daisy Mane LPN - [...] Follow up 6 [facility]: 1([phone]) 309-541211-13-2023 Evaluation note* Encounter Date Diagnosis Assessment Notes Treatment Notes Treatment Clinical Notes Sep, Bronchitis (ICD-10 - J40) Discussed diagnosis with patient. Finish entire course of antibiotic. Tessalon Pearles ordered to take as needed for cough. Increase fluids and rest. Euoh-hdh-yukwaam antipyretics as needed. Warning signs and symptoms reviewed with patient today. Patient to go immediately to the ER should she experience any of these. Patient to notify office should her symptoms persist and not improve. Patient verbalizes understanding and agrees to treatment plan. [facility] Other 10-31-2023 Evaluation note* Encounter Date Diagnosis Assessment Notes Treatment Notes Treatment Clinical Notes Aug, Lumbar pain (ICD-10 - M54.50) Hx of falls - will check lumbar XR to r/o fracture Aug, Left flank pain (ICD-10 - R10.9) r/o nephrolith Aug, Bronchitis (ICD-10 - J40) Finish antibiotics. Take prednisone. Understands it will increase her glucose. [facility] Other 10-18-2023 Evaluation note* Encounter Date Diagnosis Assessment Notes Treatment Notes Treatment Clinical Notes Aug, Acute pain of left knee (ICD-10 - M25.562) Aug, Other Patient's not having any pain today. At this point she can call me in the future if she needs me [facility] Other 08-11-2023 Evaluation note* Encounter Date Diagnosis Assessment Notes Treatment Notes Treatment Clinical Notes Jun, UTI symptoms (ICD-10 - R39.9) Will treat empirically as she is unable to provide a sample today. Jun, Weakness (ICD-10 - R53.1) Agrees to for PT and possible help with medications. Jun, Balance disorder (ICD-10 - R26.89) as above [facility] Other 08-10-2023 Evaluation note* Encounter Date Diagnosis [...] above the goal. Continue follow-up [facility] PCP for diabetes mellitus management. She is not on MARK or ARB due to the advanced CKD. 10 Aug, 2023 Secondary hyperparathyroidism of renal origin (ICD-10 - [...] to the CKD. Continue oral sodium bicarbonate. [facility] Other 06-13-2023 Evaluation note* Encounter Date Diagnosis Assessment Notes Treatment Notes Treatment Clinical Notes Apr, Vasovagal syncope (ICD-10 - R55) Nearly passed out in office, BP down to 90/58. Staff helped her to friends car. Report called to Dr. Agudelo at [facility] ER. Likely due to taking bp med again, when her pre billing clinician has d/c it. Pt sent to ER. [...] med. She agrees to HH and PT [facility] Other 05-03-2023 NotePROCEDURE: XR KNEE LT 1_2 [...] Electronically authenticated by: WILD SOLO Date: 2023-03-16 09:18[facility]05-02-2023 Evaluation note* Encounter Date Diagnosis Assessment Notes Treatment Notes Treatment Clinical Notes March, Left lateral knee pain (ICD-10 - M25.562) Discussed possible PT. Has improved overall with rest and stretching. Will start with Xray. Recommended tylenol products. March, Hypertension (ICD-10 - I10) chronic. stable - controlled on present [facility] Other 02-28-2023 Progress note Author Misti Connolly [facility] January 11, 2023 11:19am Note Date/Time January 11, 2023 10:42am [facility] [place] [address] Hem/Onc Follow Up Note - OP Signed Patient: Hailee Trivedi MR#: [id number] : 1940 Acct:[id number] Age/Sex: 82 / F Type: REG RCR [...] Head CT done March 2022 at [facility] without new/acute findings. 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 [...] been trying to transfer her care to [facility] but they are not up [...] 1 week, sees neurology (followed at [facility]) who have ruled out stroke, CT [...] for coordination of care (as documented) and moxc-yb-pfte counseling of patient and/or family. [facility] - Medical History Medical History: Medical [...] 01/19/22 09:00 KB (Rec: 01/19/22 09:01 KB [id number]) Distress Screening Distress screening follow up: Will follow with patient for any needs at next visit. Anxious about making next appointment time. - Lab Results Diagram of Most Recent CBC and CMP 01/04/23 14:45 01/04/23 14:45 Labs - Last 7 Days 01/04/23 14:45: Free Ritchey LC, Quant 26.9 H, Free Lambda LC, Quant 12.0, Free Ritchey/Lambda Ratio 2.24 H 01/04/23 14:45: PHA Creatinine [...] % (Auto) 54.8, Lymph % (Auto) 34.1, Petroleum % (Auto) 8.0, Eos % (Auto) 2.3, Baso % (Auto) 0.8, Nucleat RBC Rel Count 0.0, Neut # (Auto) 4.9, Lymph # (Auto) 3.0, Petroleum # (Auto) 0.7, Eos # (Auto) 0.2, [...] <Electronically signed by RAMAKRISHNA Connolly> 01/11/23 1119 [facility] Work Phone: [phone] 132-503402-27-2023 Hospital Discharge instructions Patient Education 01/10/2023 08:23:12 [...] include: ?Spinach. ?Rhubarb. ?Beets. ?Potato chips and moroccan fries. ?Nuts. If you regularly take a diuretic medicine, make sure to eat at least 1 2 fruits or vegetables high in potassium each day. These include: ?Avocado. ?Banana. ?[place], prune, carrot, or tomato juice. ?Baked potato. [...] Casseroles. Pizza. Lasagna. Frozen meals. Potato chips. Bulgarian fries. Summary You can reduce your risk [...] 02/25/2012 Document Revised: 02/20/2020 Document Reviewed: 10/11/2017 [employer] Patient Education 2019 [place] Follow Up Care 03/08/2022 11:44:08 With:XAVIER VELAZQUEZ, Tyree Rivers, URL Address: [facility] [address], [place] [address]- When: Unknown [facility] 02-08-2023 Evaluation note* Encounter Date Diagnosis [...] above the goal. Continue follow-up [facility] PCP for diabetes mellitus management. She is [...] to the CKD. Continue oral sodium bicarbonate. [facility] Other 01-26-2023 Evaluation note* Encounter Date Diagnosis Assessment Notes Treatment Notes Treatment Clinical Notes Nov, Paroxysmal atrial fibrillation (ICD-10 - I48.0) Patient understands to restart all of her medicines and take them as prescribed Will notify her pre billing clinician of this situation. Nov, Wart of face (ICD-10 - B07.9) Small wart on her face was treated with cryo freeze without issue pt tolerated procedure well Nov, CKD (chronic kidney disease), stage IV (ICD-10 - N18.4) Discussed follow-up appointment with Dr. Jane Nov, Multiple myeloma (ICD-10 - C90.00) Stable on present appointments and treatment [facility] Other 10-04-2022 Progress note Author Claire Choi [facility] August 17, 2022 1:48pm Note Date/Time August 03, 2022 4:57pm [facility] [place] [address] Hem/Onc Follow Up Note - OP Signed with Addlindsey Patient: Hailee Trivedi MR#: [id number] : 1940 Acct:[id number] Age/Sex: 82 / F Type: REG RCR Copies to: Curt Clark MD~ ADDENDUM2 the plan was to monitor without treatment for a while. will recheck her numbers in 3 months and prior to f/u in 6 months. i attempted to call pateint today, left message apologizing for the miscommunication on her voice mail. Addendum Dictated By: Claire Choi II DO Addendum Signed By: 08/17/221347 Addendum Cosigned By: JUAN DANIEL/ /05/1348 TD/TT: 08/17/2203/05/1348 ADDENDUM1 This was actually for date of service 07/13/22. Addendum Dictated By: Claire Choi II DO Addendum Signed By: 08/03/221699 Addendum Cosigned [...] Head CT done March 2022 at [facility] without new/acute findings. May suggest brain MRI if no other etiologies identified - History of Present Illness Chief Complaint: Patient is here for a 3 month follow up with outside labs for review. States she has had ongoing lower back pain for the last month or so. Patient scheduled for Cycle 55 Daratumumab today. 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 [...] been trying to transfer her care to [facility] but they are not up [...] 1 week, sees neurology (followed at [facility]) who have ruled out stroke, CT [...] for coordination of care (as documented) and weim-qg-askx counseling of patient and/or family. [facility] - Medical History Medical History: Medical [...] BSA for Today's Weight 1.98 Distress Screening: LEONARD Distress Screening Start: 07/22/17 16:17 Freq: Q30D Status: Active Protocol: Document 01/19/22 09:00 KB (Rec: 01/19/22 09:01 KB [id number]) Distress Screening Distress screening follow up: Will [...] signed by Claire Choi II, DO> 08/03/221658 [facility] Work Phone: 1(395) 520-501009-20-2022 Progress note Author Claire Choi [facility] August 03, 2022 5:01pm Note Date/Time August 03, 2022 5:00pm [facility] [place] [address] Hem/Onc Follow Up Note - OP Signed Patient: Hailee Trivedi MR#: [id number] : 1940 Acct:[id number] Age/Sex: 82 / F Type: REG RCR [...] Head CT done March 2022 at [facility] without new/acute findings. May suggest brain MRI if no other etiologies identified - History of Present Illness Chief Complaint: Patient is here for a 3 month follow up with outside labs for review. States she has had ongoing lower back pain for the last month or so. Patient scheduled for Cycle 55 Daratumumab today. 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 [...] been trying to transfer her care to [facility] but they are not up [...] 1 week, sees neurology (followed at [facility]) who have ruled out stroke, CT [...] for coordination of care (as documented) and cfkc-cq-ngga counseling of patient and/or family. [facility] - Medical History Medical History: Medical History (Last Updated 12/16/21 @ 12:55 by Courntey Jackman) Afib CKD (chronic kidney disease) COVID-19 [...] 01/19/22 09:00 KB (Rec: 01/19/22 09:01 KB [id number]) Distress Screening Distress screening follow up: Will [...] Dictated By: Claire Choi II, DO DD/ 1700 Signed By: <Electronically signed by Claire Choi II, DO> 08/03/22 1701 [facility] Work Phone: 1(667) 305-999108-24-2022 Evaluation note* Encounter Date Diagnosis Assessment Notes [...] above the goal. Continue follow-up [facility] PCP for diabetes mellitus management. She is [...] (IC D-10 - C90.00) Follows with Oncology [facility] Other 07-08-2022 History general Narrative - Reported* [...] Hospitalization History [facility]DE[facility] Hospitalization History COVID 10/2021 [facility] Other 07-08-2022 History general Narrative - Reported* [...] A-FIB Medical History [facility]IG[facility] PER [facility] 06/19/2023 Surgical History cholecystectomy Surgical History total hysterectomy 1989 Surgical History hemorrhoidectomy Surgical History CHEMO 06/2016 Surgical History lithotripsey 03/09/18 Surgical History Lithotripsey 02-09-2018 Surgical History left kidney stent 12-27-19 Surgical History LITHOTRIPSEY 01/24/2020 Surgical History STENT REMOVAL 03/03/2021 Surgical History KIDNEY STONES X 3 WITH LASER 02/19/2021 Hospitalization History SEE ABOVE SURGERY Hospitalization History [facility] Hospitalization History COVID 10/2021 [facility] Other 05-31-2022 Progress note Author Misti Connolly [facility] April 13, 2022 11:35am Note Date/Time April 13, 2022 9:33a [facility] [place] [address] Hem/Onc Follow Up Note - OP Signed Patient: Hailee Trivedi MR#: [id number] : 1940 Acct:[id number] Age/Sex: 81 / F Type: REG RCR [...] Head CT done March 2022 at [facility] without new/acute findings. May suggest brain MRI if no other etiologies identified Follow Up Instructions: Irma today and continue every 6 weeks myeloma labs on irma days here cbc, cmp at [facility] prior to treatment follow-up with Dr. Quiroga in 3mo - History of Present Illness Chief Complaint: Patient is here today for 2 month follow up visit for multiple myeloma. 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 [...] been trying to transfer her care to [facility] but they are not up [...] 1 week, sees neurology (followed at [facility]) who have ruled out stroke, CT [...] 6 mg and cyclophosphamide 300 mg IV hcpzvu9408/15/2015, developed grade 2 anemia, fatigue and grade [...] for coordination of care (as documented) and tuim-dg-hkwi counseling of patient and/or family. [facility] - Medical History Medical History: Medical [...] 01/19/22 09:00 KB (Rec: 01/19/22 09:01 KB [id number]) Distress Screening Distress screening follow up: Will follow with patient for any needs at next visit. Anxious about making next appointment time. - Lab Results Diagram of Most Recent CBC and CMP 04/08/22 13:20 04/08/22 13:20 Labs - Last 7 Days 04/08/22 13:20: Serum Total Protein 5.9 L, Albumin (Send Out) 3.6, Globulin (PEP) 2.3, Albumin/Globulin (PEP) 1.6, Gslpp-0-Ktiasrwgx 0.1, Ydwta-5-Oitrkcxmz 0.8, Beta Globulins 0.7, Gamma Globulins 0.6, M-Krystian Not observed, PEP Note , Free Ritchey LC, Quant 17.7, Free Lambda LC, Quant 10.0, Free Ritchey/Lambda Ratio 1.77 H 04/08/22 13:20: PHA Creatinine [...] % (Auto) 54.1, Lymph % (Auto) 38.9, Petroleum % (Auto) 5.8, Eos % (Auto) 0.7, Baso % (Auto) 0.5, Neut # (Auto) 4.6, Lymph # (Auto) 3.3, Petroleum # (Auto) 0.5, Eos# (Auto) 0.1, Baso [...] 04/13/22] Dictated By: Misti Connolly APRN DD/ 2 Signed By: <Electronically signed by RAMAKRISHNA Connolly> 04/13/22 1135 [facility] Work Phone: 1(620) 579-219804-25-2022 Hospital Discharge instructions Patient Education 03/08/2022 11:37:40 [...] 10/31/2006 Document Revised: 07/20/2019 Document Reviewed: 09/30/2017 [employer] Patient Education 2020 [place]. 03/08/2022 11:37:40 Calorie Counting for Weight Loss [...] 10/31/2006 Document Revised: 07/20/2019 Document Reviewed: 09/30/2017 [employer] Patient Education 2020 [place] 03/08/2022 11:37:32 Kidney Stones, Gsmb-qy-Axdh Kidney Stones Kidney stones are rock-like masses [...] Follow these instructions at home: Medicines Take wske-bre-vxfgltg and prescription medicines only as told by [...] 04/18/2009 Document Revised: 03/18/2020 Document Reviewed: 03/18/2020 [employer] Patient Education 2020 [employer]. Follow Up Care 09/04/2021 09:56:37 With:XAVIER VELAZQUEZ, Tyree Rivers, URL Address: [facility] [address] , [place] [address]- [phone] When:01/08/2023 Comments:10 month carlene MARAVILLA [facility] 03-07-2022 Progress note Author Claire Choi [facility] January 18, 2022 9:58am Note Date/Time January 18, 2022 9:42 am [facility] at [address] [address] Hem/Onc Follow Up Note - OP Signed Patient: Hailee Trivedi MR#: [id number] : 1940 Acct:[id number] Age/Sex: 81 / F Type: REG RCR Copies to: uCrt Clark MD~ Date of Service: 01/18/2022 Time [...] prior to f/u. 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 - History of Present Illness Chief [...] 6 mg and cyclophosphamide 300 mg IV [id number]/15/2015, developed grade 2 anemia, fatigue and grade [...] for coordination of care (as documented) and rhax-hh-uxvs counseling of patient and/or family. [facility] - Medical History Medical History: Medical History (Last Updated 12/16/21 @ 12:55 by Courtney Jackamn) Afib CKD (chronic kidney disease) COVID-19 CVA [...] % (Auto) 59.4, Lymph % (Auto) 31.4, Petroleum % (Auto) 7.2, Eos % (Auto) 0.9, Baso % (Auto) 1.1, Neut # (Auto) 5.4, Lymph # (Auto) 2.8, Petroleum # (Auto) 0.7, Eos# (Auto) 0.1, Baso [...] by Claire Choi II, DO> 01/18/22 0958 [facility] Work Phone: 1(517) 351-856503-03-2022 Evaluation note* Encounter Date Diagnosis Assessment Notes [...] D-10 - C90.00) Followup with Dr. Bello [facility] Other 02-02-2022 Progress note Author Hunter Bello [facility] December 16, 2021 1:18pm Note Date/Time December 16, 2021 1 :17pm [facility] [place] [address] Hem/Onc Follow Up Note - OP Signed Patient: Hailee Trivedi MR#: [id number] : 1940 Acct:[id number] Age/Sex: 81 / F Type: REG RCR [...] 6 mg and cyclophosphamide 300 mg IV mydesd7908/15/2015, developed grade 2 anemia, fatigue and grade [...] will be to transfer her care to [facility] when [facility] is ready 2. VitB12 injections, monthly, [...] Depressed Mood [-], Anxiety [-], Stressed [-] [facility] - Medical History Medical History: Medical [...] therapy. We will transfer her care to [facility] when they are ready. o Continue Daratumumab [...] for coordination of care (as documented) and hdsx-ky-xggg counseling of patient and/or family. Dictated By: Hunter Bello MD DD/ 1316 Signed By: <Electronically signed by MD Hunter Bello> 12/16/21 1318 [facility] Work Phone: 1(193) 380-460811-23-2021 Progress note Author Hunter Bello [facility] October 06, 2021 10:02am Note Date/Time October 06, 2021 9:58am [facility] [place] [id number] Hem/Onc Follow Up Note - OP Signed Patient: Hailee Trivedi MR#: [id number] : 1940 Acct:[id number] Age/Sex: 81 / F Type: REG RCR [...] been trying to transfer her care to [facility] but they are not up [...] 6 mg and cyclophosphamide 300 mg IV iwegtl7108/15/2015, developed grade 2 anemia, fatigue and grade [...] will be to transfer her care to [facility] when [facility] is ready 2. VitB12 injections, monthly, [...] Depressed Mood [-], Anxiety [-], Stressed [-] [facility] - Medical History Medical History: Medical [...] Q30D Status: Active Protocol: Document 07/15/20 10:19 BG (Rec: 07/15/20 10:19 BG [id number]) Distress Screening Distress Score: 3 Physical [...] % (Auto) 57.1, Lymph % (Auto) 34.7, Petroleum % (Auto) 6.1, Eos % (Auto) 0.8, Baso % (Auto) 1.3, Neut # (Auto) 5.1, Lymph # (Auto) 3.1, Petroleum # (Auto) 0.5, Eos# (Auto) 0.1, Baso [...] therapy. We will transfer her care to [facility] when they are ready. o Continue Daratumumab [...] for coordination of care (as documented) and fgbz-wv-vzmj counseling of patient and/or family. Dictated By: Hunter Bello MD DD/ 0957 Signed By: <Electronically signed by MD Hunter Bello> 10/06/[address] [place] [address] Work Phone: [phone] Evaluation note* Encounter Date Diagnosis Assessment Notes [...] D-10 - C90.00) Followup with Dr. Bello [employer] Other 10-26-2021 Progress note Author Hunter Bello [facility] September 08, 2021 11:19am Note Date/Time September 08, 2021 1 1:17am [facility] [place] [address] Hem/Onc Follow Up Note - OP Signed Patient: Hailee Trivedi MR#: [id number] : 1940 Acct:[id number] Age/Sex: 81 / F Type: REG RCR [...] and then transferring her care to the [facility]. She will be getting monthly [...] 6 mg and cyclophosphamide 300 mg IV xrxalj3308/15/2015, developed grade 2 anemia, fatigue and grade [...] will be to transfer her care to [facility]. 2. VitB12 injections, monthly, switched [...] Depressed Mood [-], Anxiety [-], Stressed [-] [facility] - Medical History Medical History: Medical History (Last Reviewed 04/16/20 @ 09:36 by Carol Younger APRN) Afib CKD (chronic kidney disease) CVA (cerebral vascular accident) Diabetes HTN (hypertension) Hyperlipidemia Kidney stone Multiple myeloma - Surgical History Surgical History: Surgical History (Last Reviewed 04/16/20 @ 09:37 by Carol Younegr APRN) History of cholecystectomy History of hemorrhoidectomy [...] % (Auto) 59.8, Lymph % (Auto) 31.4, Petroleum % (Auto) 7.0, Eos % (Auto) 1.2, Baso % (Auto) 0.6, Neut # (Auto) 5.4, Lymph # (Auto) 2.8, Petroleum # (Auto) 0.6, Eos# (Auto) 0.1, Baso [...] therapy See me in 1 month in [place] for monthly daratumumab. (2) B12 deficiency anemia [...] for coordination of care (as documented) and vdac-aj-wtpg counseling of patient and/or family. Dictated By: Hunter Bello MD DD/ 1116 Signed By: <Electronically signed by MD Hunter Bello> 09/08/21 1119 [facility] Work Phone: [phone] 595-641710-12-2021 History of Present illness Narrative* Patient is [...] recurrence. She did have noninvasive assessment at [facility], which was negative. Couple of years ago. [...] of change in cardiac status or symptoms [facility] 250 DO Work Phone: [phone] Progress note Author Louis Bradley [facility] June 16, 2021 9:35am Note Date/Time June 16, 2021 9:2 9am [facility] [address] [address] Hem/Onc Follow Up Note - OP Signed Patient: Hailee Trivedi MR#: [id number] : 1940 Acct:[id number] Age/Sex: 81 / F Type: REG RCR [...] M-spike of 0.2 g/dL with an IgG Ritchey specificity. She hadn't had a previous SPEP [...] 6 mg and cyclophosphamide 300 mg IV jggqyh6108/15/2015, developed grade 2 anemia, fatigue and grade [...] Depressed Mood [-], Anxiety [-], Stressed [-] [facility] - Medical History Medical History: Medical [...] % (Auto) 34.5 % (.) 06/09/21 09:40 Petroleum % (Auto) 5.6 % (.) 06/09/21 09:40 Eos % (Auto) 1.1 % (.) 06/09/21 09:40 Baso % (Auto) 0.6 % (.) 06/09/21 09:40 Neut # (Auto) 4.4 x10E3/uL (1.8-7.7) 06/09/21 09:40 Lymph # (Auto) 2.6 x10E3/uL (1.00-4.8) 06/09/21 09:40 Petroleum # (Auto) 0.4 x10E3/uL (0.0-0.8) 06/09/21 09:40 [...] 09:40 Albumin/Globulin (PEP) 1.3 (0.7-1.7) 06/09/21 09:40 Qsrka-0-Lwedlxkuq 0.2 g/dL (0.0-0.4) 06/09/21 09:40 Lhuhx-9-Wzvkfqicr 0.9 g/dL (0.4-1.0) 06/09/21 09:40 Beta Globulins [...] Urine pH (5.0-9.0) 02/24/21 12:05 Ur Specific [place] 1.009 (1.001-1.030) 02/24/21 12:05 Urine Protein mg/dL [...] 125 mg/24 hr (30-150) 06/09/21 09:28 U Vonve-1-Alkukmsf 4.3 % (.) 06/09/21 09:28 U Jejdo-8-Zzdilegu 16.0 % (.) 06/09/21 09:28 U Beta [...] Ab 0.9 AU/mL (0.0-1.1) 02/28/19 11:21 Free Ritchey LC, Quant 20.1 mg/L (3.3-19.4) H 06/09/21 09:40 Free Lambda LC, Quant 11.9 mg/L (5.7-26.3) 06/09/21 09:40 Free Ritchey/Lambda Ratio 1.69 (0.26-1.65) H 06/09/21 09:40 Assessment [...] for coordination of care (as documented) and diye-lj-xthj counseling of patient and/or family. Dictated By: Louis Bradley MD DD/ Signed By: <Electronically signed by Louis Bradley MD> 06/16/21 0935 [facility] Work Phone: [phone] Progress note Author Louis Bradley [facility] May 19, 2021 2:08pm Note Date/Time May 19, 2021 1:50p m [facility] [place] [id number] Hem/Onc Follow Up Note - OP Signed Patient: Hailee Trivedi MR#: [id number] : 1940 Acct:[id number] Age/Sex: 81 / F Type: REG RCR [...] 6 mg and cyclophosphamide 300 mg IV afzbxw4708/15/2015, developed grade 2 anemia, fatigue and grade [...] Depressed Mood [-], Anxiety [-], Stressed [-] [facility] - Medical History Medical History: Medical [...] % (Auto) 34.2 % (.) 04/14/21 11:10 Petroleum % (Auto) 5.7 % (.) 04/14/21 11:10 Eos % (Auto) 1.1 % (.) 04/14/21 11:10 Baso % (Auto) 0.6 % (.) 04/14/21 11:10 Neut # (Auto) 5.0 x10E3/uL (1.8-7.7) 04/14/21 11:10 Lymph # (Auto) 2.9 x10E3/uL (1.00-4.8) 04/14/21 11:10 Petroleum # (Auto) 0.5 x10E3/uL (0.0-0.8) 04/14/21 11:10 [...] 1,25 Dihydroxy Vit D2 <1.0 ng/mL (.) 11/02/17 10:45 1,25 Dihydroxy Vit D3 65 ng/mL (.) 09/15/17 10:45 Vitamin B12 506 pg/mL (180-914) 10/28/20 11:11 25-OH Vitamin D Total 57.5 ng/mL (30-100) 02/24/21 08:35 PTH Intact 125.3 pg/mL (12-88) H 02/24/21 08:35 Urine Color Red (Yellow) A 02/24/21 12:05 Urine Appearance Turbid (Clear) A 02/24/21 12:05 Urine pH (5.0-9.0) 02/24/21 12:05 Ur Specific [place] 1.009 (1.001-1.030) 02/24/21 12:05 Urine Protein mg/dL [...] Ab 0.9 AU/mL (0.0-1.1) 02/28/19 11:21 Free Ritchey LC, Quant 17.8 mg/L (3.3-19.4) 04/14/21 11:10 Free Lambda LC, Quant 9.2 mg/L (5.7-26.3) 04/14/21 11:10 Free Ritchey/Lambda Ratio 1.93 (0.26-1.65) H 04/14/21 11:10 Assessment [...] for coordination of care (as documented) and gwzs-pv-epgo counseling of patient and/or family. Dictated By: Louis Bradley MD DD/ 1349 Signed By: <Electronically signed by Louis Bradley MD> 05/19/21 1409 [facility] Work Phone: [phone] Progress note Author Margarito Buenrostro [facility] March 24, 2021 12:36pm Note Date/Time March 24, 2021 12:33 pm [facility] [place] [id number] Hem/Onc Follow Up Note - OP Signed Patient: Hailee Trivedi MR#: [id number] : 1940 Acct:[id number] Age/Sex: 80 / F Type: REG RCR [...] 6 mg and cyclophosphamide 300 mg IV rgpguy4208/15/2015, developed grade 2 anemia, fatigue and grade [...] - Last 7 Days 03/17/21 13:30: Free Ritchey LC, Quant 28.8 H, Free Lambda LC, Quant 13.2, Free Ritchey/Lambda Ratio 2.18 H 03/17/21 13:30: Corrected WBC 6.1, Uncorrected WBC Count 6.1, RBC 3.56 L, Hgb 11.7 L, Hct 34.3, MCV 96.4, MCH 32.8, MCHC 34.0, RDW 13.7, Plt Count 227, MPV 10.2, Neut % (Auto) 40.5, Lymph % (Auto) 47.8, Petroleum % (Auto) 10.6, Eos % (Auto) 0.6, Baso % (Auto) 0.5, Neut # (Auto) 2.5, Lymph # (Auto) 2.9, Petroleum # (Auto) 0.6, Eos # (Auto) 0.0, [...] she is profoundly fatigue, in retrospect, she hadkidnsrinivasa stone. -Switched back to infusional Daratumumab 02/17/21, [...] for coordination of care (as documented) and fpwh-zl-tggi counseling of patient and/or family. Dictated By: Margarito Buenrostro MD DD/ 1232 Signed By: <Electronically signed by Margarito Buenrostro MD> 03/24/21 1236 [facility] Work Phone: [phone] Progress note Author Margarito Buenrostro [facility] February 06, 2021 10:35am Note Date/Time February 06, 2021 10: 32am [facility] [place] [address] Hem/Onc Follow Up Note - OP Signed Patient: Hailee Trivedi MR#: [id number] : 1940 Acct:[id number] Age/Sex: 80 / F Type: REG RCR [...] 6 mg and cyclophosphamide 300 mg IV abkgwe9708/15/2015, developed grade 2 anemia, fatigue and grade [...] % (Auto) 64.7, Lymph % (Auto) 27.2, Petroleum % (Auto) 6.2, Eos % (Auto) 1.5, Baso % (Auto) 0.4, Neut # (Auto) 4.7, Lymph # (Auto) 2.0, Petroleum # (Auto) 0.5, Eos# (Auto) 0.1, Baso [...] for coordination of care (as documented) and vxgy-hk-wlfv counseling of patient and/or family. Dictated By: Margarito Buenrostro MD DD/ 1031 Signed By: <Electronically signed by Margarito Buenrostro MD> 02/06/21 1035 [facility] Work Phone: [phone] Progress note Author Margarito Buenrostro [facility] January 08, 2021 10:17am Note Date/Time January 08, 2021 10:14am [facility] at [address] [address] Hem/Onc Follow Up Note - OP Signed Patient: Hailee Trivedi MR#: [id number] : 1940 Acct:[id number] Age/Sex: 80 / F Type: REG RCR [...] 6 mg and cyclophosphamide 300 mg IV ibzeuw5808/15/2015, developed grade 2 anemia, fatigue and grade [...] plan to see in 4 weeks, repeat Ritchey/lambda ratio in6-8 weeks. -Continue Acyclovir 400mg bid [...] for coordination of care (as documented) and gchw-kp-rcyg counseling of patient and/or family. Dictated By: Margarito Buenrostro MD DD/ 1013 Signed By: <Electronically signed by Margarito Buenrostro MD> 01/08/21 1017 [facility] Work Phone: [phone] Progress note Author Margarito Buenrostro [facility] December 02, 2020 12:29pm Note Date/Time December 02, 2020 1 2:27pm [facility] [place] [address] Hem/Onc Follow Up Note - OP Signed Patient: Hailee Trivedi MR#: [id number] : 1940 Acct:[id number] Age/Sex: 80 / F Type: REG RCR [...] 6 mg and cyclophosphamide 300 mg IV njpahw8408/15/2015, developed grade 2 anemia, fatigue and grade [...] plan to start in 4 weeks, repeat Ritchey/lambda ratio in 6weeks. -Continue Acyclovir 400mg bid [...] for coordination of care (as documented) and vuhr-uw-txau counseling of patient and/or family. Dictated By: Margarito Buenrostro MD DD/ 25 Signed By: <Electronically signed by Margarito Buenrostro MD> 12/02/20 1229 [facility] Work Phone: [phone] Progress note Author Margarito Buenrostro [facility] November 04, 2020 1:30pm Note Date/Time November 04, 2020 1:22pm [facility] [address] [address] Hem/Onc Follow Up Note - OP Signed Patient: Hailee Trivedi MR#: [id number] : 1940 Acct:[id number] Age/Sex: 80 / F Type: REG RCR [...] 6 mg and cyclophosphamide 300 mg IV dqnqmy6708/15/2015, developed grade 2 anemia, fatigue and grade [...] - Last 7 Days 10/28/20 11:11: Free Ritchey LC, Quant , Free Lambda LC, Quant , Free Ritchey/LambdaRatio Order Ritchey Free K+L Assessment and Plan (1) Multiple [...] to treatment, see in 4 weeks. Her Ritchey/lambda ratio was not drawn, will draw today. [...] for coordination of care (as documented) and rxjy-al-ubaq counseling of patient and/or family. Dictated By: Margarito Buenrostro MD DD/ 1317 Signed By: <Electronically signed by Margarito Buenrostro MD> 11/04/20 1330 [facility] Work Phone: [phone] Progress note Author Margarito Buenrostro [facility] October 07, 2020 10:20am Note Date/Time October 07, 2020 10:18am [facility] [place] [address] Hem/Onc Follow Up Note - OP Signed Patient: Hailee Trivedi MR#: [id number] : 1940 Acct:[id number] Age/Sex: 80 / F Type: REG RCR [...] 6 mg and cyclophosphamide 300 mg IV potngd3808/15/2015, developed grade 2 anemia, fatigue and grade [...] see in 4 weeks. Plan to repeat Ritchey/lambda ratio in 3 weeks. -Continue Acyclovir 400mg [...] was for coordination of care(as documented) and rymk-at-aqmo counseling of patient and/or family. Dictated By: Margarito Buenrostro MD DD/ 1017 Signed By: <Electronically signed by Margarito Buenrostro MD> 10/07/20 1020 [facility] Work Phone: [phone] Progress note Author Margarito Buenrostro [facility] September 09, 2020 10:20am Note Date/Time September 09, 2020 1 0:18am [facility] [place] [address] Hem/Onc Follow Up Note - OP Signed Patient: Hailee Trivedi MR#: [id number] : 1940 Acct:[id number] Age/Sex: 80 / F Type: REG RCR [...] 6 mg and cyclophosphamide 300 mg IV dilpnx6308/15/2015, developed grade 2 anemia, fatigue and grade [...] - Last 7 Days 09/01/20 10:35: Free Ritchey LC, Quant 19.8 H, Free Lambda LC, Quant 11.2, Free Ritchey/Lambda Ratio 1.77 H Assessment and Plan (1) [...] see in 4 weeks. Plan to repeat Ritchey/lambda ratio in 7 weeks. -Continue Acyclovir 400mg [...] was for coordination of care(as documented) and fwak-ww-rnvc counseling of patient and/or family. Dictated By: Margarito Buenrostro MD DD/ 1017 Signed By: <Electronically signed by Margarito Buenrostro MD> 09/09/20 1020 [facility] Work Phone: [phone] Progress note Author Margarito Buenrostro [facility] August 12, 2020 11:28am Note Date/Time August 12, 2020 11:25am [facility] [address] [address] Hem/Onc Follow Up Note - OP Signed Patient: Hailee Trivedi MR#: [id number] : 1940 Acct:[id number] Age/Sex: 80 / F Type: REG RCR [...] 6 mg and cyclophosphamide 300 mg IV dlnzjc3908/15/2015, developed grade 2 anemia, fatigue and grade [...] see in 4 weeks. Plan to repeat Ritchey/lambda ratio in 3 weeks. -Continue Acyclovir 400mg [...] was for coordination of care(as documented) and zjjp-nc-oxlz counseling of patient and/or family. Dictated By: Margarito Buenrostro MD DD/ 1124 Signed By: <Electronically signed by Margarito Buenrostro MD> 08/12/20 1128 [facility] Work Phone: [phone] Progress note Author Margarito Buenrostro [facility] July 15, 2020 10:42am Note Date/Time July 15, 2020 10:40am [facility] [address] [address] Hem/Onc Follow Up Note - OP Signed Patient: Hailee Trivedi MR#: [id number] : 1940 Acct:[id number] Age/Sex: 80 / F Type: REG RCR [...] 6 mg and cyclophosphamide 300 mg IV oplqvb7908/15/2015, developed grade 2 anemia, fatigue and grade [...] - Last 7 Days 07/07/20 11:10: Free Ritchey LC, Quant 18.5, Free Lambda LC, Quant 11.7, Free Ritchey/Lambda Ratio 1.58 Assessment and Plan (1) Multiple [...] see in 4 weeks. Plan to repeat Ritchey/lambda ratio in 8 weeks. -Continue Acyclovir 400mg [...] for coordination of care (as documented) and vtif-je-eiuu counseling of patient and/or family. Dictated By: Margarito Buenrostro MD DD/ 1039 Signed By: <Electronically signed by Margarito Buenrostro MD> 07/15/20 1042 [facility] Work Phone: [phone] Progress note Author Margarito Buenrostro [facility] June 17, 2020 10:25am Note Date/Time June 17, 2020 10: 22am [facility] [place] [address] Hem/Onc Follow Up Note - OP Signed Patient: Hailee Trivedi MR#: [id number] : 1940 Acct:[id number] Age/Sex: 80 / F Type: REG RCR [...] 6 mg and cyclophosphamide 300 mg IV wpxtsl2408/15/2015, developed grade 2 anemia, fatigue and grade [...] see in 4 weeks. Plan to repeat Ritchey/lambda ratio in 4 weeks. -Continue Acyclovir 400mg [...] was for coordination of care(as documented) and gqsj-fv-gbkx counseling of patient and/or family. Dictated By: Margarito Buenrostro MD DD/ 1022 Signed By: <Electronically signed by Margarito Buenrostro MD> 06/17/20 1025 [facility] Work Phone: [phone] Progress note Author Margarito Buenrostro [facility] May 20, 2020 10:10am Note Date/Time May 20, 2020 10:00 am [facility] [address] [address] Hem/Onc Follow Up Note - OP Signed Patient: Hailee Trivedi MR#: [id number] : 1940 Acct:[id number] Age/Sex: 80 / F Type: REG RCR [...] 6 mg and cyclophosphamide 300 mg IV jzopye8408/15/2015, developed grade 2 anemia, fatigue and grade [...] - Last 7 Days 05/13/20 10:09: Free Ritchey LC, Quant 18.5, Free Lambda LC, Quant 9.6, Free Ritchey/Lambda Ratio 1.93 H 05/13/20 10:09: PHA Creatinine Clear [id number], Sodium 138, Potassium 4.6, Chloride 112, Carbon [...] Neut % (Auto) 59.3,Lymph % (Auto) 31.6, Petroleum % (Auto) 7.5, Eos % (Auto) 1.1, Baso % (Auto) 0.5, Neut # (Auto) 4.6, Lymph # (Auto) 2.4, Petroleum # (Auto) 0.6, Eos # (Auto) 0.1, [...] see in 4 weeks. Plan to repeat Ritchey/lambda ratio in 8 weeks. We will update [...] for coordination of care (as documented) and otpn-qx-jwai counseling of patient and/or family. Dictated By: Margarito Buenrostro MD DD/ 0958 Signed By: <Electronically signed by Margarito Buenrostro MD> 05/20/20 1010 [facility] Work Phone: [phone] Progress note Author Carol Younger [facility] April 16, 2020 10:49am Note Date/Time April 16, 2020 9:10a m [facility] [address] [address] Hem/Onc Follow Up Note - OP Signed Patient: Hailee Trivedi MR#: [id number] : 1940 Acct:[id number] Age/Sex: 79 / F Type: REG RCR [...] 6 mg and cyclophosphamide 300 mg IV vsokgw9908/15/2015, developed grade 2 anemia, fatigue and grade [...] - Last 7 Days 04/09/20 09:35: Free Ritchey LC, Quant 16.6, Free Lambda LC, Quant 9.8, Free Ritchey/Lambda Ratio 1.69 H 04/09/20 09:35: PHA Creatinine Clear 19.0731533212, Sodium 138, Potassium 4.6, Chloride 111, Carbon [...] Neut % (Auto) 62.6,Lymph % (Auto) 29.5, Petroleum % (Auto) 5.8, Eos % (Auto) 1.5, Baso % (Auto) 0.6, Neut # (Auto) 4.2, Lymph # (Auto) 2.0, Petroleum # (Auto) 0.4, Eos # (Auto) 0.1, [...] The patient is also followed by nephrology -Ritchey/lambda ratio mild improvement 1.69 -Continue Acyclovir 400mg [...] for coordination of care (as documented) and myed-rv-trlr counseling of patient and/or family. Dictated By: Carol Younger APRN DD/ 8 Signed By: <Electronically signed by RAMAKRISHNA Younger> 04/16/20 2260 [facility] Work Phone: [phone] Progress note Author Margarito Buenrostro [facility] March 19, 2020 8:55am Note Date/Time March 19, 2020 8:37am [facility] [place] [address] Hem/Onc Follow Up Note - OP Signed Patient: Hailee Trivedi MR#: [id number] : 1940 Acct:[id number] Age/Sex: 79 / F Type: REG RCR [...] 6 mg and cyclophosphamide 300 mg IV oowmoc1508/15/2015, developed grade 2 anemia, fatigue and grade [...] every 4 weeks cycle, starting today on 5/6/20. -Repeat K/L ratio today, see in 4 [...] for coordination of care (as documented) and txbf-wl-unue counseling of patient and/or family. Dictated By: Margarito Buenrostro MD DD/ 0837 Signed By: <Electronically signed by Margarito Buenrostro MD> 03/19/20 0855 [facility] Work Phone: [phone] Progress note Author Margarito Buenrostro [facility] January 09, 2020 9:15am Note Date/Time January 09, 2020 9:12am [facility] [place] [address] Hem/Onc Follow Up Note - OP Signed Patient: Hailee Trivedi MR#: [id number] : 1940 Acct:[id number] Age/Sex: 79 / F Type: REG RCR [...] 6 mg and cyclophosphamide 300 mg IV isxswa8708/15/2015, developed grade 2 anemia, fatigue and grade [...] Neut % (Auto) 64.3,Lymph % (Auto) 25.2, Petroleum % (Auto) 7.0, Eos % (Auto) 3.0, Baso % (Auto) 0.5, Neut # (Auto) 4.3, Lymph # (Auto) 1.7, Petroleum # (Auto) 0.5, Eos # (Auto) 0.2, Baso# (Auto) 0.0, Nucleated RBC % (auto) 0.0 01/03/20 09:10: Free Ritchey LC, Quant 17.3, Free Lambda LC, Quant 10.2, Free Ritchey/Lambda Ratio 1.70 H Assessment and Plan (1) [...] and sustained response. -Labs adequate to treat, Ritchey light chain level slightly trend upwards, but still stable, will proceed to Daratumumab today, will see her back in 6 weeks, plan to repeat K/L light chains in 5 weeks ahead of time, if Ritchey light chain continue to go up, plan [...] for coordination of care (as documented) and nddn-tz-byde counseling of patient and/or family. Dictated By: Margarito Buenrostro MD DD/ 0 Signed By: <Electronically signed by Margarito Buenrostro MD> 01/09/20914 [facility] Work Phone: [phone] Progress note Author Margarito Buenrostro [facility] November 28, 2019 10:50am Note Date/Time November 28, 2019 9 :43am [facility] [place] [address] Hem/Onc Follow Up Note - OP Signed Patient: Hailee Trivedi MR#: [id number] : 1940 Acct:[id number] Age/Sex: 79 / F Type: REG RCR [...] 6 mg and cyclophosphamide 300 mg IV yklfvq7008/15/2015, developed grade 2 anemia, fatigue and grade [...] - Last 7 Days 11/20/19 14:30: Free Ritchey LC, Quant 14.5, Free Lambda LC, Quant 7.7, Free Ritchey/Lambda Ratio 1.88 H Assessment and Plan (1) [...] and sustained response. -Labs adequate to treat, Ritchey light chain level slightly trend upwards, will proceed to Daratumumab today, will see her back in 6 weeks, plan to repeat K/L light chains in 5 weeks ahead of time, if Ritchey light chain continue to go up, plan [...] for coordination of care (as documented) and qdax-zn-fntd counseling of patient and/or family. Dictated By: Margarito Buenrostro MD DD/ 0943 Signed By: <Electronically signed by Margarito Buenrostro MD> 11/28/19 1054 [facility] Work Phone: [phone] Progress note Author Margarito Buenrostro [facility] October 17, 2019 9:37am Note Date/Time October 17, 2019 9 :30am [facility] [place] [address] Hem/Onc Follow Up Note - OP Signed Patient: Hailee Trivedi MR#: [id number] : 1940 Acct:[id number] Age/Sex: 79 / F Type: REG RCR Copies to: Curt Clark MD~ Subjective Date/Time of Service: Date of Service: 10/17/2019 Time of Service: 09:26 Chief Complaint: Follow up appt prior to treatment doing well HPI: Hailee presents for routine follow up; prior to Daratumumab. Patient reports left leg sudden onset weakness last Tuesday while she was drawing labs at [facility]. She elected to not stay. This has [...] 6 mg and cyclophosphamide 300 mg IV vrdliy7308/15/2015, developed grade 2 anemia, fatigue and grade [...] for coordination of care (as documented) and hqfr-ae-xjtk counseling of patient and/or family. Dictated By: Margarito Buenrostro MD DD/ 5 Signed By: <Electronically signed by Margarito Buenrostro MD> 10/17/1937 [facility] Work Phone: [phone] Progress note Author Margarito Buenrostro [facility] July 25, 2019 8:31am Note Date/Time July 25, 2019 8:30am [facility] [place] [address] Hem/Onc Follow Up Note - OP Signed Patient: Hailee Trivedi MR#: [id number] : 1940 Acct:[id number] Age/Sex: 79 / F Type: REG RCR [...] 6 mg and cyclophosphamide 300 mg IV mpzjav6008/15/2015, developed grade 2 anemia, fatigue and grade [...] - Last 7 Days 07/18/19 08:54: Free Ritchey LC, Quant 16.4, Free Lambda LC, Quant 10.9, Free Ritchey/Lambda Ratio 1.50 07/18/19 08:54: PHA Creatinine Clear [id number], Sodium 139, Potassium 4.6, Chloride 110, Carbon [...] % (Auto) 64.4, Lymph % (Auto) 27.6, Petroleum % (Auto) 6.8, Eos % (Auto) 0.7, Baso % (Auto) 0.5, Neut # (Auto) 4.2, Lymph # (Auto) 1.8, Petroleum # (Auto) 0.4, Eos # (Auto) 0.0,Baso [...] for coordination of care (as documented) and arai-ia-lpip counseling of patient and/or family. Dictated By: Margarito Buenrostro MD DD/ 9 Signed By: <Electronically signed by Margarito Buenrostro MD> 07/25/19830 [facility] Work Phone: [phone] Progress note Author Margarito Buenrostro [facility] June 13, 2019 8:37am Note Date/Time June 13, 2019 8:34 am [facility] [place] [address] Hem/Onc Follow Up Note - OP Signed Patient: Hailee Trivedi MR#: [id number] : 1940 Acct:[id number] Age/Sex: 79 / F Type: REG RCR Copies to: Curt Clark MD~ Subjective Date/Time of Service: Date of Service: 06/13/2019 Time of Service: 08:34 Chief Complaint: Follow up appt prior to treatment - Diagnosis DIAGNOSIS: DIAGNOSIS: 1. 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 [...] CVA 2018. SOCIAL HISTORY: Lives with in [place]. HPI: Hailee presents for routine follow up; [...] 6 mg and cyclophosphamide 300 mg IV uznszl6808/15/2015, developed grade 2 anemia, fatigue and grade [...] for coordination of care (as documented) and ivfp-by-yxkk counseling of patient and/or family. Dictated By: Margarito Buenrostro MD DD/ 3 Signed By: <Electronically signed by Margarito Buenrostro MD> 06/13/1937 [facility] Work Phone: [phone] Progress note Author Margarito Buenrostro [facility] May 02, 2019 8:38am Note Date/Time May 02, 2019 8:33 am [facility] [place] [address] Hem/Onc Follow Up Note - OP Signed Patient: Hailee Trivedi MR#: [id number] : 1940 Acct:[id number] Age/Sex: 78 / F Type: REG RCR Copies to: Curt Clark MD~ Subjective Date/Time of Service: Date of Service: 05/02/2019 Time of Service: 08:32 Chief Complaint: Follow up appt prior to treatment no new concerns - Diagnosis DIAGNOSIS: DIAGNOSIS: 1. 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 [...] CVA 2018. SOCIAL HISTORY: Lives with in [place]. HPI: Hailee presents for routine follow up; [...] 6 mg and cyclophosphamide 300 mg IV owsejz5108/15/2015, developed grade 2 anemia, fatigue and grade [...] - Last 7 Days 04/25/19 11:05: Free Ritchey LC, Quant 16.9, Free Lambda LC, Quant 10.8, Free Ritchey/Lambda Ratio 1.56 04/25/19 11:05: WBC 6.5, Corrected WBC 6.5, RBC 3.81, Hgb 12.2, Hct 36.4, MCV 95.7, MCH 32.1, MCHC 33.6, RDW 13.7, Plt Count 182, MPV 9.9, Neut % (Auto) 65.0,Lymph % (Auto) 26.9, Petroleum % (Auto) 7.0, Eos % (Auto) 0.6, Baso % (Auto) 0.5, Neut # (Auto) 4.2, Lymph # (Auto) 1.8, Petroleum # (Auto) 0.5, Eos # (Auto) 0.0, [...] for coordination of care (as documented) and ezom-xd-prhg counseling of patient and/or family. Dictated By: Margarito Buenrostro MD DD/ Signed By: <Electronically signed by Margarito Buenrostro MD> 05/02/19 0838 [facility] Work Phone: [phone] Progress note Author Margarito Buenrostro [facility] March 07, 2019 10:22am Note Date/Time March 07, 2019 10: 19am [facility] [place] [address] Hem/Onc Follow Up Note - OP Signed Patient: Hailee Trivedi MR#: [id number] : 1940 Acct:[id number] Age/Sex: 78 / F Type: REG RCR Copies to: Curt Clark MD~ Subjective Date/Time of Service: Date of Service: 03/07/2019 Time of Service: 08:16 Chief Complaint: Follow up appt prior to treatment - Diagnosis DIAGNOSIS: DIAGNOSIS: 1. 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 [...] CVA 2017. SOCIAL HISTORY: Lives with in [place]. HPI: Hailee presents for routine follow up; [...] 6 mg and cyclophosphamide 300 mg IV bkbtzv3508/15/2015, developed grade 2 anemia, fatigue and grade [...] Joseph Block M.D.01/02/2019 10:11 AM Dictation Location: [facility] Any impression(s) listed above is documentation [...] for coordination of care (as documented) and fril-xu-sgod counseling of patient and/or family. Dictated By: Margarito Buenrostro MD DD/ 1016 Signed By: <Electronically signed by Margarito Buenrostro MD> 03/07/19 1022 [facility] Work Phone: [phone] Progress note Author Margarito Buenrostro [facility] January 10, 2019 8:49am Note Date/Time January 10, 2019 8:43am [facility] [place] [address] Hem/Onc Follow Up Note - OP Signed Patient: Hailee Trivedi MR#: [id number] : 1940 Acct:[id number] Age/Sex: 78 / F Type: REG RCR Copies to: Curt Clark MD~ Subjective Date/Time of Service: Date of Service: 01/10/2019 Time of Service: 08:42 Chief Complaint: Follow up appt prior to treatment has had leg weakness - Diagnosis DIAGNOSIS: DIAGNOSIS: 1. 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 [...] CVA 2017. SOCIAL HISTORY: Lives with in [place]. HPI: Hailee presents for routine follow up; prior to Cycle 19 Daratumumab. Patient had sudden onset weakness during blood draw for her labs last week, she was evaluated by ER, CT head at that point did not evidence of bleeding. She was released, she is currently wearing a monitor tech. Her legs are little weak,otherwise she has [...] 6 mg and cyclophosphamide 300 mg IV qnfvgy8208/15/2015, developed grade 2 anemia, fatigue and grade [...] - Last 7 Days 01/02/19 09:35: Free Ritchey LC, Quant 14.9, Free Lambda LC, Quant 8.9, Free Ritchey/Lambda Ratio 1.67 H - Impressions ITS Impressions [...] Joseph Block M.D.01/02/2019 10:11 AM Dictation Location: [facility] Any impression(s) listed above is documentation [...] for coordination of care (as documented) and klwn-ps-fbef counseling of patient and/or family. Dictated By: Margarito Buenrostro MD DD/ 0842 Signed By: <Electronically signed by Margarito Buenrostro MD> 01/10/19 0849 [facility] Work Phone: [phone] Progress note Author Anna Marie Mcnamara [facility] January 02, 2019 4:51pm Note Date/Time January 02, 2019 4:51pm [facility] [address] [place] [address] Event Note Signed Patient: Hailee Trivedi MR#: [id number] : 1940 Acct:[id number] Age/Sex: 78 / F Adm Date: 9 [...] Documented By: Anna Marie Mcnamara MD 01/02/19 2964 Signed By: <Electronically signed by Anna Marie Mcnamara MD> 01/02/19 1651 [facility] Work Phone: 1([phone] 801-670501-02-2019 Progress note Author Margarito Buenrostro [facility] November 15, 2018 8:49am Note Date/Time November 15, 2018 8: 45am [facility] [place] [address] Hem/Onc Follow Up Note - OP Signed Patient: Hailee Trivedi MR#: [id number] : 1940 Acct:[id number] Age/Sex: 78 / F Type: REG RCR Copies to: Curt Clark MD~ Subjective Date/Time of Service: Date of Service: 11/15/2018 Time of Service: 08:43 Chief Complaint: Follow up appt myloma no new concerns - Diagnosis DIAGNOSIS: DIAGNOSIS: 1. 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 [...] CVA 2018. SOCIAL HISTORY: Lives with in [place]. HPI: Hailee presents for routine follow up; [...] 6 mg and cyclophosphamide 300 mg IV xpgxew9408/15/2015, developed grade 2 anemia, fatigue and grade [...] for coordination of care (as documented) and gisr-es-rowv counseling of patient and/or family. Dictated By: Margarito Buenrostro MD DD/ 0843 Signed By: <Electronically signed by Margarito Buenrostro MD> 11/15/18 0849 [facility] Work Phone: [phone] Progress [facility] October 18, 2018 9:34am Note Date/Time October 18, 2018 9 :30am [facility] [place] [id number] Hem/Onc Follow Up Note - OP Signed Patient: Hailee Trivedi MR#: [id number] : 1940 Acct:[id number] Age/Sex: 78 / F Type: REG RCR Copies to: Curt Clark MD~ Subjective Date/Time of Service: Date of Service: 10/18/2018 Time of Service: 09:27 Chief Complaint: Patient here for one month follow up appointment for Multiple myeloma to be seen before C16 Daratumumab. - Diagnosis DIAGNOSIS: DIAGNOSIS: 1. 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 [...] DM-II, CKD-3. SOCIAL HISTORY: Lives with in [place]. HPI: Hailee presents for routine follow up; [...] 6 mg and cyclophosphamide 300 mg IV horydi3908/15/2015, developed grade 2 anemia, fatigue and grade [...] HAILEE IgA 65, HAILEE IgM 38, Free Ritchey LC, Quant 15.8, Free Lambda LC, Quant 9.7, Free Ritchey/Lambda Ratio 1.63 10/13/18 09:10: PHA Creatinine Clear [id number], Sodium 137, Potassium 4.1, Chloride 107, Carbon [...] % (Auto) 64.5, Lymph % (Auto) 27.4, Petroleum % (Auto) 6.8, Eos % (Auto) 0.8, Baso % (Auto) 0.5, Neut # (Auto) 4.2, Lymph # (Auto) 1.8, Petroleum # (Auto) 0.4, Eos # (Auto) 0.1, [...] for coordination of care (as documented) and ibtt-pt-fngw counseling of patient and/or family. Dictated By: Lisa Devine DD/ 6 Signed By: <Electronically signed by Lisa Devine> 10/18/18 0934 [facility] Work Phone: [phone] Progress note Author Jacklyn Cornelius [facility] September 20, 2018 8:53am Note Date/Time September 20, 2018 8 :43am [facility] [address] [address] Hem/Onc Follow Up Note - OP Signed Patient: Hailee Trivedi MR#: [id number] : 1940 Acct:[id number] Age/Sex: 78 / F Type: REG RCR Copies to: Curt Clark MD~ Subjective Date/Time of Service: Date of Service: 09/20/2018 Time of Service: 08:38 Chief Complaint: Multiple myeloma follow up appt day of treatment continues to have some dizziness - Diagnosis DIAGNOSIS: 1. 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 [...] DM-II, CKD-3. SOCIAL HISTORY: Lives with in [place]. HPI: Mrs. Bright is here today to [...] an MRI of the brain done at [place] under the direction of the neurologist. It [...] 6 mg and cyclophosphamide 300 mg IV eofarm0508/15/2015, developed grade 2 anemia, fatigue and grade [...] - Last 7 Days 09/13/18 11:15: Free Ritchey LC, Quant 15.3, Free Lambda LC, Quant 13.0, Free Ritchey/Lambda Ratio 1.18 09/13/18 11:15: PHA Creatinine Clear 21.2853032847, Sodium 140, Potassium 4.6, Chloride 109, Carbon [...] % (Auto) 58.9, Lymph % (Auto) 30.7, Petroleum % (Auto) 8.9, Eos % (Auto) 1.2, Baso % (Auto) 0.3, Neut # (Auto) 3.5, Lymph # (Auto) 1.8, Petroleum # (Auto) 0.5, Eos # (Auto) 0.1, [...] for coordination of care (as documented) and ebcj-tc-yuzg counseling of patient and/or family. 25 - 35 minutes Dictated By: Jacklyn Cornelius MD DD/ Signed By: <Electronically signed by Jacklyn Cornelius MD> 09/20/18 0853 [facility] Work Phone: [phone] Progress note Author Margarito Buenrostro [facility] August 09, 2018 9:41am Note Date/Time August 09, 2018 9:29am [facility] [address] [address] Hem/Onc Follow Up Note - OP Signed Patient: Hailee Trivedi MR#: [id number] : 1940 Acct:[id number] Age/Sex: 78 / F Type: REG RCR Copies to: Curt Clark MD~ Subjective Date/Time of Service: Date of Service: 08/09/2018 Time of Service: 09:28 Chief Complaint: Follow up appt on treatment multiple myeloma has infected toothbeing treated - Diagnosis DIAGNOSIS: 1. 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 [...] DM-II, CKD-3. SOCIAL HISTORY: Lives with in [place]. HPI: Mrs. Trivedi is seen as scheduled. [...] 6 mg and cyclophosphamide 300 mg IV keetkp5108/15/2015, developed grade 2 anemia, fatigue and grade [...] her MRI report (to be done in [place]). See in 5 weeks by SHAHID Bell, [...] for coordination of care (as documented) and fzju-kv-ewcu counseling of patient and/or family. 25 - 35 minutes Dictated By: Margarito Buenrostro MD DD/ 0979 Signed By: <Electronically signed by Margarito Buenrostro MD> 08/09/18 0941 [facility] Work Phone: [phone] Progress note Author Margarito Buenrostro [facility] July 12, 2018 9:09am Note Date/Time July 12, 2018 8: 33am [facility] [place] [address] Hem/Onc Follow Up Note - OP Signed Patient: Hailee Trivedi MR#: [id number] : 1940 Acct:[id number] Age/Sex: 78 / F Type: REG RCR Copies to: Curt Clark MD~ Subjective Date/Time of Service: Date of Service: 07/12/2018 Time of Service: 08:33 Chief Complaint: Follow up appt treatment today - Diagnosis DIAGNOSIS: 1. 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 [...] DM-II, CKD-3. SOCIAL HISTORY: Lives with in [place]. HPI: Mrs. Trivedi is seen as scheduled. [...] 6 mg and cyclophosphamide 300 mg IV eqknpp3508/15/2015, developed grade 2 anemia, fatigue and grade [...] potassium 4.2, creatinine 2.55, calcium 8.7 Free Ritchey LC, Quant 14.0 mg/L (3.3-19.4) 06/28/18 10:45 Free Lambda LC, Quant 9.7 mg/L (5.7-26.3) 06/28/18 10:45 Free Ritchey/Lambda Ratio 1.44 (0.26-1.65) 06/28/18 10:45 Total Bilirubin [...] for coordination of care (as documented) and mbaj-un-muuo counseling of patient and/or family. 25 - 35 minutes Dictated By: Margarito Buenrostro MD DD/ 2 Signed By: <Electronically signed by Margarito Buenrostro MD> 07/12/18 0909 [facility] Work Phone: [phone] Progress note Author Margarito Buenrostro [facility] May 18, 2018 8:51am Note Date/Time May 18, 2018 8:44a m [facility] [place] [address] Hem/Onc Follow Up Note - OP Signed Patient: Hailee Trivedi MR#: [id number] : 1940 Acct:[id number] Age/Sex: 78 / F Type: REG RCR Copies to: Curt Clark MD~ Subjective Date/Time of Service: Date of Service: 05/18/2018 Time of Service: 08:42 Chief Complaint: weak today - Diagnosis DIAGNOSIS: 1. 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 [...] DM-II, CKD-3. SOCIAL HISTORY: Lives with in [place]. HPI: Mrs. Trivedi is seen as scheduled. [...] 6 mg and cyclophosphamide 300 mg IV xxkvmb1608/15/2015, developed grade 2 anemia, fatigue and grade [...] 7: 05/09/18 13:45 05/09/18 13:45 Labs: Free Ritchey LC, Quant 15.0 mg/L (3.3-19.4) 05/09/18 13:45 Free Lambda LC, Quant 10.8 mg/L (5.7-26.3) 05/09/18 13:45 Free Ritchey/Lambda Ratio 1.39 (0.26-1.65) 05/09/18 13:45 HbA1C 7.7 [...] for coordination of care (as documented) and sdzs-hv-iekp counseling of patient and/or family. Greater than 35 minutes Dictated By: Margarito Buenrostro MD DD/ Signed By: <Electronically signed by Margarito Buenrostro MD> 05/18/18 0851 [facility] Work Phone: [phone] 342-148306-06-2018 Progress note Author Margarito Buenrostro [facility] April 19, 2018 1:08pm Note Date/Time April 19, 2018 8:33a m [facility] [address] [address] Hem/Onc Follow Up Note - OP Signed Patient: Hailee Trivedi MR#: [id number] : 1940 Acct:[id number] Age/Sex: 77 / F Type: REG RCR Copies to: Curt Clark MD~ Subjective Date/Time of Service: Date of Service: 04/19/2018 Time of Service: 08:32 Chief Complaint: Follow up appt - Diagnosis DIAGNOSIS: 1. 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 [...] DM-II, CKD-3. SOCIAL HISTORY: Lives with in [place]. HPI: Mrs. Trivedi is seen as scheduled. [...] 6 mg and cyclophosphamide 300 mg IV zjvjuz8708/15/2015, developed grade 2 anemia, fatigue and grade [...] for coordination of care (as documented) and qlwa-jm-sooh counseling of patient and/or family. 25 - 35 minutes Dictated By: Margarito Buenrostro MD DD/ 0832 Signed By: <Electronically signed by Margarito Buenrostro MD> 04/19/18 1303 [facility] Work Phone: 1([phone] 194-172105-02-2018 Progress note Author Margarito Buenrostro [facility] March 15, 2018 8:43am Note Date/Time March 15, 2018 8:38am [facility] [place] [address] Hem/Onc Follow Up Note - OP Signed Patient: Hailee Tirvedi MR#: [id number] : 1940 Acct:[id number] Age/Sex: 77 / F Type: REG RCR Copies to: Curt Clark MD, Patrick MD~ Subjective Date/Time of Service: Date of Service: 03/15/2018 Time of Service: 08:37 Chief Complaint: Follow up appt - Diagnosis DIAGNOSIS: 1. 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 [...] DM-II, CKD-3. SOCIAL HISTORY: Lives with in [place]. HPI: Mrs. Trivedi is seen as scheduled. She reports had lithotripsy, then she developed pain involving bilateral wrist, elbows, and shoulder, primarily in themuscle. She went to [place] ER, took x-rays, no acute process was [...] 6 mg and cyclophosphamide 300 mg IV qwvuun6608/15/2015, developed grade 2 anemia, fatigue and grade [...] Albumin 3.8 gm/dL (3.2-5.5) 03/08/18 11:50 Free Ritchey LC, Quant 18.6 mg/L (3.3-19.4) 03/08/18 11:50 Free Lambda LC, Quant 12.5 mg/L (5.7-26.3) 03/08/18 11:50 Free Ritchey/Lambda Ratio 1.49 (0.26-1.65) 03/08/18 11:50 Assessment and [...] Daratumumab to next week, orders placed. Continue [id number] bid for Herpes Zoster prophylaxis. See in [...] for coordination of care (as documented) and krqf-xd-hfnl counseling of patient and/or family. 25 - 35 minutes Dictated By: Margarito Buenrostro MD DD/ 0837 Signed By: <Electronically signed by Margarito Buenrostro MD> 03/15/18 0843 [facility] Work Phone: [phone] Progress note Author Margarito Buenrostro [facility] January 18, 2018 10:51am Note Date/Time January 18, 2018 10:4 4am [facility] [place] [address] Hem/Onc Follow Up Note - OP Signed Patient: Hailee Trivedi MR#: [id number] : 1940 Acct:[id number] Age/Sex: 77 / F Type: REG RCR Copies to: Curt Clark MD~ Subjective Date/Time of Service: Date of Service: 01/18/2018 Time of Service: 10:42 Chief Complaint: Follow up appt - Diagnosis DIAGNOSIS: 1. 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 [...] DM-II, CKD-3. SOCIAL HISTORY: Lives with in [place]. HPI: Mrs. Trivedi is seen as scheduled. She reports double vision has improved after a triple to [place]. Her hearing is improving too. Fatigued as [...] 6 mg and cyclophosphamide 300 mg IV crzjzv0408/15/2015, developed grade 2 anemia, fatigue and grade [...] 7: 01/10/18 10:13 01/10/18 10:13 Labs: Free Ritchey LC, Quant 14.2 mg/L (3.3-19.4) 01/10/18 10:13 Free Lambda LC, Quant 11.4 mg/L (5.7-26.3) 01/10/18 10:13 Free Ritchey/Lambda Ratio 1.25 (0.26-1.65) 01/10/18 10:13 Assessment and [...] for coordination of care (as documented) and fzyl-aw-cmzn counseling of patient and/or family. 25 - 35 minutes Dictated By: Margarito Buenrostro MD DD/ 1042 Signed By: <Electronically signed by Margarito Buenrostro MD> 01/18/18 1051 [facility] Work Phone: [phone] Progress note Author Margarito Buenrostro [facility] November 23, 2017 10:25am Note Date/Time November 23, 2017 1 0:19am [facility] [place] [address] Hem/Onc Follow Up Note - OP Signed Patient: Hailee Trivedi MR#: [id number] : 1940 Acct:[id number] Age/Sex: 77 / F Type: REG RCR Copies to: Curt Clark MD~ Subjective Date/Time of Service: Date of Service: 11/23/2017 Time of Service: 10:18 Chief Complaint: Follow up appt - Diagnosis DIAGNOSIS: 1. 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 [...] 6 mg and cyclophosphamide 300 mg IV kjylpj3408/15/2015, developed grade 2 anemia, fatigue and grade [...] 7: 11/16/17 08:35 11/16/17 08:35 Labs: Free Ritchey LC, Quant 17.9 mg/L (3.3-19.4) 11/16/17 08:35 Free Lambda LC, Quant 10.5 mg/L (5.7-26.3) 11/16/17 08:35 Free Ritchey/Lambda Ratio 1.70 (0.26-1.65) H 11/16/17 08:35 Assessment [...] to resume Daratumumab. -She will go to [place] in December, would like to resume therapy [...] for coordination of care (as documented) and pawn-xn-rtef counseling of patient and/or family. 25 - 35 minutes Dictated By: Margarito Buenrostro MD DD/ 1018 Signed By: <Electronically signed by Margarito Buenrostro MD> 11/23/17 1025 [facility] Work Phone: [phone] Progress note Author Margarito Buenrostro [facility] October 19, 2017 9:19am Note Date/Time October 19, 2017 8 :42am [facility] [address] [address] Hem/Onc Follow Up Note - OP Signed Patient: Hailee Trivedi MR#: [id number] : 1940 Acct:[id number] Age/Sex: 77 / F Type: REG RCR Copies to: Curt Clark MD, Jeffrey DO~ Subjective Date/Time of Service: Date of Service: 10/19/2017 Time of Service: 08:42 Chief Complaint: Follow up appt - Diagnosis DIAGNOSIS: 1. 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 [...] 6 mg and cyclophosphamide 300 mg IV zwoixp3408/15/2015, developed grade 2 anemia, fatigue and grade [...] 7: 10/14/17 13:43 10/14/17 13:43 Labs: Free Ritchey LC, Quant 15.6 mg/L (3.3-19.4) 10/14/17 13:43 Free Lambda LC, Quant 9.4 mg/L (5.7-26.3) 10/14/17 13:43 Free Ritchey/Lambda Ratio 1.66 (0.26-1.65) H 10/14/17 13:43 Assessment [...] for coordination of care (as documented) and owhd-la-zyxy counseling of patient and/or family. less than 15 minutes Dictated By: Margarito Buenrostro MD DD/ Signed By: <Electronically signed by Margarito Buenrostro MD> 10/19/17 0919 [facility] Work Phone: [phone] Progress note Author Margarito Buenrostro [facility] September 21, 2017 8:54am Note Date/Time September 21, 2017 8 :50am [facility] [place] [address] Hem/Onc Follow Up Note - OP Signed Patient: Hailee Trivedi MR#: [id number] : 1940 Acct:[id number] Age/Sex: 77 / F Type: REG RCR Copies to: Curt Clark MD, Jeffrey DO~ Subjective Date/Time of Service: Date of Service: 09/21/2017 Time of Service: 08:48 Chief Complaint: Follow up appt - Diagnosis DIAGNOSIS: 1. 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 [...] 6 mg and cyclophosphamide 300 mg IV hqtrys4208/15/2015, developed grade 2 anemia, fatigue and grade [...] 7: 09/15/17 10:45 09/15/17 10:45 Labs: Free Ritchey LC, Quant 14.4 mg/L (3.3-19.4) 09/15/17 10:45 Free Lambda LC, Quant 9.3 mg/L (5.7-26.3) 09/15/17 10:45 Free Ritchey/Lambda Ratio 1.55 (0.26-1.65) 09/15/17 10:45 Assessment and [...] for coordination of care (as documented) and abmb-lx-scve counseling of patient and/or family. 25 - 35 minutes Dictated By: Margarito Buenrostro MD DD/ 7 Signed By: <Electronically signed by Margarito Buenrostro MD> 09/21/17 0854 [facility] Work Phone: [phone] Progress note Author Margarito Buenrostro [facility] July 27, 2017 8:53am Note Date/Time July 27, 2017 8:46am [facility] [address] [address] Hem/Onc Follow Up Note - OP Signed Patient: Hailee Trivedi MR#: [id number] : 1940 Acct:[id number] Age/Sex: 77 / F Type: REG RCR cc: Curt Clark MD, Jeffrey DO Qadir, Abdul MD~ Subjective Date/Time of Service: Date of Service: 07/27/2017 Time of Service: 08:44 Chief Complaint: Follow up appt - Diagnosis DIAGNOSIS: 1. 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 [...] 6 mg and cyclophosphamide 300 mg IV uzqsfj8808/15/2015, developed grade 2 anemia, fatigue and grade [...] Chem 7: 07/21/17 08:50 07/21/17 08:50 Labs: Ritchey and lambda light chain levels low, and [...] for coordination of care (as documented) and edee-uk-eidj counseling of patient and/or family. 25 - 35 minutes Dictated By: Margarito Buenrostro MD DD/ 0844 Signed By: <Electronically signed by Margarito Buenrostro MD> 07/27/17 0853 [facility] Work Phone: Evaluation + Plan note Future Appointments Appointment Date:01/10/2023 10:45:00 AM Scheduled Provider:Tyree PARK MD Location:[facility] Appointment Type:URO Office Visit [facility] evaluation + Plan note Future Appointments Appointment Date:01/09/2024 08:45:00 AM Scheduled Provider:Tyree PARK MD Location:[facility] Appointment Type:URO Office Visit Diagnostic Tests Pending * Urine Cytology ([facility]) 01/10/[address] [facility] evaluation noteNo Adjacent Applications[employer] Other Evaluation note* Diagnosis Onset Date Resolution [...] chronic Steroid-induced hyperglycemia chronic Unsteady gait resolved [facility] Work Phone: Evaluation note* Diagnosis Persistent atrial fibrillation with RVR (CMS/HCC)- Primary Aortic valve regurgitation, nonrheumatic Ascending aorta dilation (CMS/HCC) Thoracic aneurysm without mention of rupture Essential hypertension Unspecified essential hypertension Pulmonary hypertension (CMS/HCC) Other chronic pulmonary heart diseases Stage 3a chronic kidney disease (CMS/HCC) documented in this encounter [facility] Work Phone: Evaluation note* Diagnosis Aortic valve regurgitation, nonrheumatic Ascending aorta dilation (CMS/HCC) Thoracic aneurysm without mention of rupture Pulmonary hypertension (CMS/HCC) Other chronic pulmonary heart diseases documented in this encounter [facility] Work Phone: Evaluation note* Diagnosis Aortic valve regurgitation, nonrheumatic Ascending aorta dilation (CMS/HCC) Thoracic aneurysm without mention of rupture Pulmonary hypertension (CMS/HCC) Other chronic pulmonary heart diseases documented in this encounter [facility] Work Phone: Evaluation note* Diagnosis Onset [...] 4, GFR 15-29 ml/min acute Hyperlipidemia acute [id number] acute Metabolic acidemia acute Multiple myeloma acute Secondary hyperparathyroidism of renal origin acute 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 [facility] Work Phone: Evaluation note* Diagnosis Onset Date Resolution Status CKD (chronic kidney disease) stage 4, GFR 15-29 ml/min acute Hyperlipidemia acute [id number] acute Metabolic acidemia acute Multiple myeloma acute [...] myeloma in remission chronic Unsteady gait resolved [facility] Work Phone: Evaluation note* Diagnosis Onset Date Resolution Status Multiple myeloma acute Cerebellar stroke, acute acu te CKD (chronic kidney disease) stage 4, GFR 15-29 ml/min acute Diabetes mellitus type II, controlled acute Hyperlipidemia acute Atrial fibrillation chronic HTN (hypertension) chronic 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 Multiple myeloma in remission chronic Unsteady gait resolved UTI (urinary tract infection) acute [facility] Work Phone: Evaluation note* Diagnosis Essential hypertension- [...] Never smoked tobacco documented in this encounter [facility] Work Phone: Evaluation note* Diagnosis Onset [...] myeloma in remission chronic Unsteady gait resolved [facility] Work Phone: Evaluation note* Diagnosis Onset Date [...] 15-29 ml/min acute Hyperkalemia acute Hyperlipidemia acute [id number] acute Metabolic acidemia acute Multiple myeloma acute Secondary hyperparathyroidism of renal origin acute 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 [facility] Work Phone: Evaluation note* Diagnosis Onset Date Resolution Status CKD (chronic kidney disease) stage 4, GFR 15-29 ml/min acute Depression acute HTN (hypertension) chronic Multiple myeloma in remission chronic CKD (chronic kidney disease) stage 4, GFR 15-29 ml/min acute Hyperkalemia acute Hyperlipidemia acute [id number] acute Metabolic acidemia acute Multiple myeloma acute [...] myeloma in remission chronic Unsteady gait resolved [facility] Work Phone: evaluation note* Diagnosis Onset Date Resolution Status CKD (chronic kidney disease) stage 4, GFR 15-29 ml/min acute Hyperkalemia acute Hyperlipidemia acute [id number] acute Metabolic acidemia acute Multiple myeloma acute [...] Weakness acute Atrial fibrillation chronic HTN (hypertension) [facility] Work Phone: Evaluation note* Diagnosis Onset Date Resolution Status CKD (chronic kidney disease) stage 4, GFR 15-29 ml/min acute Hyperkalemia acute Hyperlipidemia acute [id number] acute Metabolic acidemia acute Multiple myeloma acute [...] (hypertension) chronic Multiple myeloma in remission chronic [facility] Work Phone: Evaluation note* Diagnosis Persistent atrial fibrillation with RVR (Multi)- Primary Pulmonary hypertension (Multi) Other chronic pulmonary heart diseases Mixed hyperlipidemia Ascending aorta dilation (CMS-HCC) Thoracic aneurysm without mention of rupture Essential hypertension Unspecified essential hypertension Stage 3a chronic kidney disease (Multi) Shortness of breath at rest Gastrointestinal hemorrhage, unspecified gastrointestinal hemorrhage type BMI 32.0-32.9,adult Never smoked tobacco documented in this encounter [facility] Work Phone: Hisgfyg general Narrative - Reported* Type Description Date [...] History SEE ABOVE SURGERY Hospitalization History [facility] Other History general Narrative - Reported* Type [...] Hospitalization History [facility] Hospitalization History COVID 10/2021 [facility] Other History general Narrative - Reported* Type [...] Hospitalization History [facility] Hospitalization History COVID 10/2021 [facility] Other History of Present illness Narrative* Patient [...] recurrence. She did have noninvasive assessment at [facility], which was negative. Couple of years ago. [...] change in cardiac status or symptoms [facility] 250 DO Work Phone: History of Present [...] recurrence. She did have noninvasive assessment at [facility], which was negative. Couple of years ago. [...] of change in cardiac status or symptoms [facility] 250 DO Work Phone: Hospital course Narrative No data available for this section [facility] InstructionsNot on filedocumented in this encounter [facility] this [facility] No data available for this section [facility] progress note Author Misti Jeanpamela [facility] January 11, 2023 11:19am Note Date/Time January 11, 2023 10:42am [facility] [place] [id number] Hem/Onc Follow Up Note - OP Signed Patient: Hailee Trivedi MR#: [id number] : 1940 Acct:[id number] Age/Sex: 82 / F Type: REG RCR [...] Head CT done March 2022 at [facility] without new/acute findings. 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 [...] been trying to transfer her care to [place] [facility] but they are not up [...] 1 week, sees neurology (followed at [facility]) who have ruled out stroke, CT [...] for coordination of care (as documented) and spic-mi-vefo counseling of patient and/or family. [facility] - Medical History Medical History: Medical [...] 01/19/22 09:00 KB (Rec: 01/19/22 09:01 KB [id number]) Distress Screening Distress screening follow up: Will follow with patient for any needs at next visit. Anxious about making next appointment time. - Lab Results Diagram of Most Recent CBC and CMP 01/04/23 14:45 01/04/23 14:45 Labs - Last 7 Days 01/04/23 14:45: Free Ritchey LC, Quant 26.9 H, Free Lambda LC, Quant 12.0, Free Ritchey/Lambda Ratio 2.24 H 01/04/23 14:45: PHA Creatinine [...] % (Auto) 54.8, Lymph % (Auto) 34.1, Petroleum % (Auto) 8.0, Eos % (Auto) 2.3, Baso % (Auto) 0.8, Nucleat RBC Rel Count 0.0, Neut # (Auto) 4.9, Lymph # (Auto) 3.0, Petroleum # (Auto) 0.7, Eos # (Auto) 0.2, [...] <Electronically signed by RAMAKRISHNA Connolly> 01/11/23 1118 [facility] Work Phone: Progress note Author Misti Connolly [facility] January 31, 2024 1:03pm Note Date/Time January 27, 2024 2:5 6pm [facility] at [address] [address] Cancer Center Note Signed Patient: Hailee Trivedi MR#: [id number] : 1940 Acct:[id number] Age/Sex: 83 / F Type: DEP AMB [...] well. Within one month of starting irma [id number] she had 95% reduction in K light [...] in 07/2019 was 900 and 506 in 12/20. -- Continue oral vitamin B12 at 1000mcg daily. L leg weakness New since end of March 2022- this is being managed by her neurologist. Head CT done March 2022 at [facility] without new/acute findings. 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 [...] for multiple myeloma and go over labs [facility] Medical History Medical History (Updated 01/04/24 [...] Diabetes Sister Diabetes Social History Social History (Reviewed 02/21/24 @ 10:57 by Sarahi Coleman [facility] Smoking status: Never smoker Nicotine containing products [...] <Electronically signed by RAMAKRISHNA Connolly> 01/31/24 1303 [facility] Work Phone: Reason for referral (narrative)* Consultation (Routine) - Authorized Specialty Diagnoses / Procedures Referred By Contac t Referred To Contact Cardiology Diagnoses Persistent atrial fibrillation with RVR (Multi) Procedures Follow Up In Cardiology Elicia Rhodes MD [address] [place] [address] 2, [address] [address] Elicia Rhodes MD [address] [place] [address] 2, Naeem [address] [place] [id number] Referral ID Status Reason Start Date Expiration Date V isits Requested Visits Authorized [id number] Authorized 04/17/2024 04/17/2025 1 1 T [facility] Work Phone: Summary Purpose Family History [...] disease) stage 4, GFR 15-29 ml/min Hyperlipidemia [id number] Metabolic acidemia Multiple myeloma 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 Reason for Visit CKD (chronic kidney disease) stage 4, GFR 15-29 ml/min Hyperlipidemia [id number] Metabolic acidemia Multiple myeloma Secondary hyperparathyroidism of [...] stage 4, GFR 15-29 ml/min Hyperkalemia Hyperlipidemia [id number] Metabolic acidemia Multiple myeloma 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 6 Month Follow Up Reason for Visit CKD (chronic kidney disease) stage 4, GFR 15-29 ml/min Depression HTN (hypertension) Multiple myeloma in remission CKD (chronic kidney disease) stage 4, GFR 15-29 ml/min Hyperkalemia Hyperlipidemia [id number] Metabolic acidemia Multiple myeloma Secondary hyperparathyroidism of [...] stage 4, GFR 15-29 ml/min Hyperkalemia Hyperlipidemia [id number] Metabolic acidemia Multiple myeloma Secondary hyperparathyroidism of [...] stage 4, GFR 15-29 ml/min Hyperkalemia Hyperlipidemia [id number] Metabolic acidemia Multiple myeloma Secondary hyperparathyroidism of [...] stage 4, GFR 15-29 ml/min Hyperkalemia Hyperlipidemia [id number] Metabolic acidemia Multiple myeloma Secondary hyperparathyroidism of [...] fibrillation HTN (hypertension) Multiple myeloma in remission Chief Complaint Admit Date sob, weakness September 18, 2024 1 2:41am sob, weakness September 18, 2024 1 1:34am CC Adult Risk Stratification September 11:03am Amb Documentation October 12, 2024 8:18am Unknown October 12, 2024 8:52am Assisted Visit October 23, 2024 11:59pm correction discharge f/u, BCC October 30, 2024 1:58pm Amb Documentation November 26, 2024 8 :00am [facility] November 28, 2024 1 0:36am Reason for Visit Admit Date CKD (chronic kidney disease) stage 4, GF R 15-29 ml/min September 18, 2024 12:41am Atrial fibrillation September 18, 2024 1 2:41am Chest pain September 18, 2024 1 2:41am Diabetes mellitus type II, controlled No [email or web address] 12:41am Diabetic neuropathy September 18, 2024 1 2:41am Dyspnea September 18, 2024 1 2:41am HTN (hypertension) September 18, 2024 1 2:41am Hyperlipidemia September 18, 2024 1 2:41am Hypomagnesemia September 18, 2024 1 2:41am Impaired mobility and activities of tiff y living September 18, 2024 12:41am Multiple myeloma in remission September [id number] 12:41am Weakness September 18, 2024 1 2:41am Anxiety October 30, 2024 1:58pm CKD (chronic kidney disease) stage 4, GF R 15-29 ml/min October 30, 2024 1:58pm UGI bleed October 30, 2024 1:58pm Paroxysmal atrial fibrillation October 30, 2024 1:58pm Chief Complaint Admit Date Amb Documentation October 12, 2024 8:18am Unknown October 12, 2024 8:52am Assisted Visit October 23, 2024 11:59pm correction discharge f/u, BCC October 30, 2024 1:58pm Amb Documentation November 26, 2024 8 :00am VIRTUAL:[facility] November 28, 2024 1 0:36am Multiple Myeloma. December 12, 2024 1 :03pm trouble breathing December 19, 2024 4 :18pm Reason for Visit Admit Date Anxiety October 30, 2024 1:58pm CKD (chronic kidney disease) stage 4, GF R 15-29 ml/min October 30, 2024 1:58pm UGI bleed October 30, 2024 1:58pm Paroxysmal atrial fibrillation October 30, 2024 1:58pm Acute on chronic diastolic (congestive) heart failure November 28, 2024 10:36am CKD (chronic kidney disease) stage 4, GF R 15-29 ml/min November 28, 2024 10:36am Cerebellar stroke, acute December 12, 025 1:03pm CKD (chronic kidney disease) stage 4, GF R 15-29 ml/min December 12, 2024 1:03pm Hyperlipidemia December 12, 2024 1 :03pm 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 Solo cisneros 2024 1:03pm Atrial fibrillation December 12, 2024 1 :03pm Diabetes mellitus type II, controlled Amol retana 2024 1:03pm HTN (hypertension) December 12, 2024 1 :03pm Multiple myeloma in remission December 122024 1:03pm Unsteady gait December 12, 2024 1 :03pm Anemia December 12, 2024 1 :03pm B12 deficiency anemia December 12, 2024 1:03pm Dizziness December 12, 2024 1 :03pm Hearing loss December 12, 2024 1 :03pm Multiple myeloma December 12, 2024 1 :03pm Steroid-induced hyperglycemia December 122024 1:03pm Transient left leg weakness November 1:03pm Double vision December 12, 2024 1 :03pm Left facial numbness December 12, 2024 1:03pm Shoulder pain December 12, 2024 1 :03pm Weakness December 12, 2024 1 :03pm Acute on chronic diastolic (congestive) heart failure December 19, 2024 4:18pm CKD (chronic kidney disease) stage 4, GF R 15-29 ml/min December 19, 2024 4:18pm Dyspnea December 19, 2024 4 :18pm Fluid retention December 19, 2024 4 :18pm Heart failure December 19, 2024 4 :18pm Chief Complaint Admit Date Amb Documentation October 12, 2024 8:18am Unknown October 12, 2024 8:52am Assisted Visit October 23, 2024 11:59pm correction discharge f/u, BCC October 30, 2024 1:58pm Amb Documentation November 26, 2024 8 :00am [facility]UAL:[facility] November 28, 2024 1 0:36am Multiple Myeloma. December 12, 2024 1 :03pm trouble breathing December 19, 2024 4 :18pm trouble breathing December 20, 2024 8 :30am Reason for Visit Admit Date Anxiety October 30, 2024 1:58pm CKD (chronic kidney disease) stage 4, GF R 15-29 ml/min October 30, 2024 1:58pm UGI bleed October 30, 2024 1:58pm Paroxysmal atrial fibrillation October 30, 2024 1:58pm Acute on chronic diastolic (congestive) heart failure November 28, 2024 10:36am CKD (chronic kidney disease) stage 4, GF R 15-29 ml/min November 28, 2024 10:36am Cerebellar stroke, acute December 12, 025 1:03pm CKD (chronic kidney disease) stage 4, GF R 15-29 ml/min December 12, 2024 1:03pm Hyperlipidemia December 12, 2024 1 :03pm 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 Solo blayne 2024 1:03pm Atrial fibrillation December 12, 2024 1 :03pm Diabetes mellitus type II, controlled Ja nuary 2024 1:03pm HTN (hypertension) December 12, 2024 1 :03pm Multiple myeloma in remission December 122024 1:03pm Unsteady gait December 12, 2024 1 :03pm Anemia December 12, 2024 1 :03pm B12 deficiency anemia December 12, 2024 1:03pm Dizziness December 12, 2024 1 :03pm Hearing loss December 12, 2024 1 :03pm Multiple myeloma December 12, 2024 1 :03pm Steroid-induced hyperglycemia December 122024 1:03pm Transient left leg weakness November 1:03pm Double vision December 12, 2024 1 :03pm Left facial numbness December 12, 2024 1:03pm Shoulder pain December 12, 2024 1 :03pm Weakness December 12, 2024 1 :03pm Acute on chronic diastolic (congestive) heart failure December 19, 2024 4:18pm CKD (chronic kidney disease) stage 4, GF R 15-29 ml/min December 19, 2024 4:18pm Dyspnea December 19, 2024 4 :18pm Fluid retention December 19, 2024 4 :18pm Hypertensive chronic kidney disease with stage 1 through stage 4 chronic ki December 19, 2024 4:18pm Multiple myeloma December 19, 2024 4 :18pm 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 December 12, 2024 1 :03pm trouble breathing December 19, 2024 4 :18pm trouble breathing December 20, 2024 8 :30am Amb Documentation December 25, 2024 7:58am RENAL 6 MONTH F/U December 25, 2024 2:26pm Reason for Visit Admit Date Anxiety October 30, 2024 1:58pm CKD (chronic kidney disease) stage 4, GF R 15-29 ml/min October 30, 2024 1:58pm UGI bleed October 30, 2024 1:58pm Paroxysmal atrial fibrillation October 30, 2024 1:58pm Acute on chronic diastolic (congestive) heart failure November 28, 2024 10:36am CKD (chronic kidney disease) stage 4, GF R 15-29 ml/min November 28, 2024 10:36am Cerebellar stroke, acute December 12, 025 1:03pm CKD (chronic kidney disease) stage 4, GF R 15-29 ml/min December 12, 2024 1:03pm Hyperlipidemia December 12, 2024 1 :03pm 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 Solo cisneros 2024 1:03pm Atrial fibrillation December 12, 2024 1 :03pm Diabetes mellitus type II, controlled Ja nuary 2024 1:03pm HTN (hypertension) December 12, 2024 1 :03pm Multiple myeloma in remission December 122024 1:03pm Unsteady gait December 12, 2024 1 :03pm Anemia December 12, 2024 1 :03pm B12 deficiency anemia December 12, 2024 1:03pm Dizziness December 12, 2024 1 :03pm Hearing loss December 12, 2024 1 :03pm Multiple myeloma December 12, 2024 1 :03pm Steroid-induced hyperglycemia December 122024 1:03pm Transient left leg weakness November 1:03pm Double vision December 12, 2024 1 :03pm Left facial numbness December 12, 2024 1:03pm Shoulder pain December 12, 2024 1 :03pm Weakness December 12, 2024 1 :03pm Acute on chronic diastolic (congestive) heart failure December 19, 2024 4:18pm CKD (chronic kidney disease) stage 4, GF R 15-29 ml/min December 19, 2024 4:18pm Dyspnea December 19, 2024 4 :18pm Fluid retention December 19, 2024 4 :18pm Hypertensive chronic kidney disease with stage 1 through stage 4 chronic ki December 19, 2024 4:18pm Multiple myeloma December 19, 2024 4 :18pm 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 December 19, 2024 4:18pm Heart failure December 19, 2024 4 :18pm CKD (chronic kidney disease) stage 4, GF R 15-29 ml/min December 25, 2024 2:26pm Hypertensive chronic kidney disease with stage 1 through stage 4 chronic ki December 25, 2024 2:26pm Multiple myeloma December 25, 2024 2:26pm Secondary hyperparathyroidism of renal o rigin December 25, 2024 2:26pm 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 December 12, 2024 1 :03pm trouble breathing December 19, 2024 4 :18pm trouble breathing December 20, 2024 8 :30am Amb Documentation December 25, 2024 7:58am RENAL 6 MONTH F/U December 25, 2024 2:26pm IP [facility] December 26, 2024 10:49am Reason for Visit Admit Date Anxiety October 30, 2024 1:58pm CKD (chronic kidney disease) stage 4, GF R 15-29 ml/min October 30, 2024 1:58pm UGI bleed October 30, 2024 1:58pm Paroxysmal atrial fibrillation October 30, 2024 1:58pm Acute on chronic diastolic (congestive) heart failure November 28, 2024 10:36am CKD (chronic kidney disease) stage 4, GF R 15-29 ml/min November 28, 2024 10:36am Cerebellar stroke, acute December 12, 025 1:03pm CKD (chronic kidney disease) stage 4, GF R 15-29 ml/min December 12, 2024 1:03pm Hyperlipidemia December 12, 2024 1 :03pm 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 Solo cisneros 2024 1:03pm Atrial fibrillation December 12, 2024 1 :03pm Diabetes mellitus type II, controlled Ja mazin 2024 1:03pm HTN (hypertension) December 12, 2024 1 :03pm Multiple myeloma in remission December 122024 1:03pm Unsteady gait December 12, 2024 1 :03pm Anemia December 12, 2024 1 :03pm B12 deficiency anemia December 12, 2024 1:03pm Dizziness December 12, 2024 1 :03pm Hearing loss December 12, 2024 1 :03pm Multiple myeloma December 12, 2024 1 :03pm Steroid-induced hyperglycemia December 122024 1:03pm Transient left leg weakness November 1:03pm Double vision December 12, 2024 1 :03pm Left facial numbness December 12, 2024 1:03pm Shoulder pain December 12, 2024 1 :03pm Weakness December 12, 2024 1 :03pm Acute on chronic diastolic (congestive) heart failure December 19, 2024 4:18pm CKD (chronic kidney disease) stage 4, GF R 15-29 ml/min December 19, 2024 4:18pm Dyspnea December 19, 2024 4 :18pm Fluid retention December 19, 2024 4 :18pm Hypertensive chronic kidney disease with stage 1 through stage 4 chronic ki December 19, 2024 4:18pm Multiple myeloma December 19, 2024 4 :18pm 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 December 19, 2024 4:18pm Heart failure December 19, 2024 4 :18pm CKD (chronic kidney disease) stage 4, GF R 15-29 ml/min December 25, 2024 2:26pm Hyperlipidemia December 25, 2024 2:26pm Hypertensive chronic kidney disease with stage 1 through stage 4 chronic ki December 25, 2024 2:26pm Metabolic acidemia December 25, 2024 2:26pm Multiple myeloma February 11th, 2025 2:26pm Secondary hyperparathyroidism of renal o rigin December 25, 2024 2:26pm 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 December 12, 2024 1 :03pm trouble breathing December 19, 2024 4 :18pm trouble breathing December 20, 2024 8 :30am Amb Documentation December 25, 2024 7:58am RENAL 6 MONTH F/U December 25, 2024 2:26pm IP [facility] December 26, 2024 10:49am [id number] January 02, 2025 7:28am Reason for Visit Admit Date Anxiety October 30, 2024 1:58pm CKD (chronic kidney disease) stage 4, GF R 15-29 ml/min October 30, 2024 1:58pm Paroxysmal atrial fibrillation October 30, 2024 1:58pm UGI bleed October 30, 2024 1:58pm Acute on chronic diastolic (congestive) heart failure November 28, 2024 10:36am CKD (chronic kidney disease) stage 4, GF R 15-29 ml/min November 28, 2024 10:36am Atrial fibrillation December 12, 2024 1 :03pm Diabetes mellitus type II, controlled Ja nuary 2024 1:03pm HTN (hypertension) December 12, 2024 1 :03pm Multiple myeloma in remission December 122024 1:03pm Unsteady gait December 12, 2024 1 :03pm Anemia December 12, 2024 1 :03pm B12 deficiency anemia December 12, 2024 1:03pm Cerebellar stroke, acute December 12, 2 025 1:03pm CKD (chronic kidney disease) stage 4, GF R 15-29 ml/min December 12, 2024 1:03pm Dizziness December 12, 2024 1 :03pm Hearing loss December 12, 2024 1 :03pm Hyperlipidemia December 12, 2024 1 :03pm 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 Solo cisneros 2024 1:03pm Multiple myeloma December 12, 2024 1 :03pm Steroid-induced hyperglycemia December 122024 1:03pm Transient left leg weakness November 1:03pm Double vision December 12, 2024 1 :03pm Left facial numbness December 12, 2024 1:03pm Shoulder pain December 12, 2024 1 :03pm Weakness December 12, 2024 1 :03pm Acute on chronic diastolic (congestive) heart failure December 19, 2024 4:18pm Dyspnea December 19, 2024 4 :18pm Fluid retention December 19, 2024 4 :18pm CKD (chronic kidney disease) stage 4, GF R 15-29 ml/min December 19, 2024 4:18pm Hypertensive chronic kidney disease with stage 1 through stage 4 chronic ki December 19, 2024 4:18pm Multiple myeloma December 19, 2024 4 :18pm 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 December 19, 2024 4:18pm Heart failure December 19, 2024 4 :18pm Secondary hyperparathyroidism of renal o rigin December 25, 2024 2:26pm CKD (chronic kidney disease) stage 4, GF R 15-29 ml/min December 25, 2024 2:26pm Hyperlipidemia December 25, 2024 2:26pm Hypertensive chronic kidney disease with stage 1 through stage 4 chronic ki December 25, 2024 2:26pm Kidney stone December 25, 2024 2:26pm Metabolic acidemia December 25, 2024 2:26pm Multiple myeloma December 25, 2024 2:26pm 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 December 25, 2024 2:26pm Acute on chronic diastolic (congestive) heart failure December 26, 2024 10:49am CKD (chronic kidney disease) stage 4, GF R 15-29 ml/min December 26, 2024 10:49am 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 Febr uary 2024 10:49am Reason for Referral Specialty Diagnoses / Procedures Referred By Contac t Referred To Contact Cardiology Diagnoses Aortic valve regurgitation, nonrheumatic Ascending aorta dilation (CMS/HCC) Pulmonary hypertension (CMS/HCC) Procedures Transthoracic Echo (TTE) Complete MO ECHO TRANSTHORC R-T 2D W/WO M-MODE REC F-UP/LMTD MO DOP ECHOCARD COLOR FLOW VELOCITY MAPPING MO DOP ECHOCARD PULSE WAVE W/SPECTRAL F-UP/LMTD STD Elicia Rhodes MD [facility] 2, [place] [address] [place] [id number] Referral ID Status Reason Start Date Expiration Date Visits Requested Visits Authorized [id number] Pending Review Perform Procedure 10/03/2024 1 1 Specialty Diagnoses / Procedures Referred By Contac t Referred To Contact Diagnoses Persistent atrial fibrillation with RVR (CMS/HCC) Procedures ECG 12 Lead Elicia Rhodes MD [address] [facility] 2, [address] [address] Referral ID Status Reason Start Date Expiration Date V isits Requested Visits Authorized [id number] Pending Review 10/04/2023 10/03/2024 1 1 Specialty Diagnoses / Procedures Referred By Contac t Referred To Contact Cardiology Diagnoses Persistent atrial fibrillation with RVR (CMS/HCC) Aortic valve regurgitation, nonrheumatic Ascending aorta dilation (CMS/HCC) Procedures Follow Up In Cardiology Elicia Rhodes MD [facility] 2, [address] [address] Elicia Rhodes MD [address] [place] [address] [address], [address] [address] Referral ID Status Reason Start Date Expiration Date V isits Requested Visits Authorized [id number] Authorized 10/04/2023 10/03/2024 1 1 Additional Source Comments INFORMATION SOURCE (unrecogn ized section and content) DATE CREATED AUTHOR 10/19/2019 [facility] DATE CREATED AUTHOR AUTHOR'S ORGANIZ ATION 03/24/2023 [facility] DATE CREATED AUTHOR AUTHOR'S ORGANIZ ATION 03/26/2023 [facility] [place] DATE CREATED AUTHOR AUTHOR'S ORGANIZ ATION 03/26/2023 [employer] DATE CREATED AUTHOR AUTHOR'S ORGANIZ ATION 03/15/2024 [facility] DATE CREATED AUTHOR AUTHOR'S ORGANIZ ATION 07/29/2024 [facility] DATE CREATED AUTHOR AUTHOR'S ORGANIZ ATION 12/03/2024 [facility] DATE CREATED AUTHOR AUTHOR'S ORGANIZ ATION 01/03/2025 [facility] DATE CREATED AUTHOR AUTHOR'S ORGANIZ ATION 01/07/2025 [facility] REASON FOR VISIT (unrecogniz ed section and content) Reason Comments Follow-up 6m with ekg Specialty Diagnoses / Procedures Referred By Contac t Referred To Contact Diagnoses Persistent atrial fibrillation with RVR (CMS/HCC) Procedures ECG 12 Lead Elicia Rhodes MD [facility] 2, [address] [address] Referral ID Status Reason Start Date Expiration Date V isits Requested Visits Authorized [id number] Pending Review 10/04/2023 10/03/2024 1 1 Specialty Diagnoses / Procedures Referred By Contac t Referred To Contact Cardiology Diagnoses Aortic valve regurgitation, nonrheumatic Ascending aorta dilation (CMS/HCC) Pulmonary hypertension (CMS/HCC) Procedures Transthoracic Echo (TTE) Complete MO ECHO TRANSTHORC R-T 2D W/WO M-MODE REC F-UP/LMTD MO DOP ECHOCARD COLOR FLOW VELOCITY MAPPING MO DOP ECHOCARD PULSE WAVE W/SPECTRAL F-UP/LMTD STD Elicia Rhodes MD [address] [place] [address] 2, [address] [address] Referral ID Status Reason Start Date Expiration Date Visits Requested Visits Authorized [id number] Pending Review Perform Procedure 10/03/2024 1 1 Reason Comments Follow-up 6 months Specialty Diagnoses / Procedures Referred By Contac t Referred To Contact Cardiology Diagnoses Persistent atrial fibrillation with RVR (Multi) Aortic valve regurgitation, nonrheumatic Ascending aorta dilation (CMS-HCC) Procedures Follow Up In Cardiology Elicia Rhodes MD [address] [facility] 2, [address] [address] Elicia Rhodes MD [address] [facility] [address], [address] [address] Referral ID Status Reason Start Date Expiration Date V isits Requested Visits Authorized [id number] Authorized 10/04/2023 10/03/2024 1 1 Reason Comments Follow-up 6 month Specialty Diagnoses / Procedures Referred By Contac t Referred To Contact Cardiology Diagnoses Persistent atrial fibrillation with RVR (Multi) Procedures Follow Up In Cardiology Elicia Rhodes MD [address] [facility] [address], [address] [address] Phone: tel: fax: Elicia Rhodes MD [address] [facility] [address], [address] [address] Phone: tel: fax: Referral ID Status Reason Start Date Expiration Date V isits Requested Visits Authorized [id number] Authorized 04/17/2024 04/17/2025 1 1 Reason Comments Follow-up Atrial Fibrillation EKG visit Specialty Diagnoses / Procedures Referred By Contac t Referred To Contact Diagnoses Persistent atrial fibrillation with RVR (Multi) Procedures ECG 12 Lead Elicia Rhodes MD [address] [facility] [address], [address] [address] Phone: tel: fax: Referral ID Status Reason Start Date Expiration Date V isits Requested Visits Authorized [id number] Authorized 11/30/2024 11/30/2025 1 1 Care Teams (unrecognized sec tion [...] Claire Choi II, DO Attending Provider Active Song Plugger Relationship Specialty Start Date End Date Curt Clark MD PCP - General 12/10/14 Song Plugger Relationship Specialty Start Date End Date Curt Clark MD [address] [place] [id number] PCP - General Family Medicine 10/22/23 Song Plugger Relationship Specialty Start Date End Date Curt Clark MD [address] [place] [id number] PCP - General Family Medicine 10/22/23 Team [...] April 12, 2024 End: April 12, 2024 Song Plugger Relationship Specialty Start Date End Date Curt [...] August 20, 2024 End: August 20, 2024 Song Plugger Relationship Specialty Start Date End Date Curt Clark MD [address] [place] [id number] PCP - General Family Medicine 06/29/23 Team Status: Active Member [...] MD Other Provider Active Start: N ovember 2023 End: September 19, 2024 Kristan Pretty APRN Other Provider Active St art: September 18, 2024 End: September 19, 2024 Isaias Morgan Jr DO Other Provider Active S tart: September 18, 2024 End: September 19, 2024 Trent Patterson MD Attending Provider Active St art: September 18, 2024 End: September 19, 2024 Team Status: Active Member Role Status Dates Curt Clark MD Primary Care Provider Active Start: September 18, 2024 Jesse Valdez , Emergency Provider Active Start: September 18, 2024 Pool Buck MD Admit Provider Active Start: September 18, 2024 Trent Patterson MD Other Provider Active Start: September 18, 2024 Cristiano Diaz MD Attending Pr ovider, Other Provider Active Start: September 18, 2024 Sherron Li MD Other Provider Active Start: No vember 2023 Pj Montes MD Other Provider Active Start: N ovember 2023 Kristanboogie Pretty , STRATEGIES ANALYST Other Provider Active St art: September 18, 2024 Isaias Morgan Jr, DO Other Provider Active S tart: September 18, 2024 Team Status: Active Member Role Status Dates Curt Clark MD Primary Care Provide r, Attending Provider Active Start: September 19, 2024 Song Plugger Relationship Specialty Start Date End Date Curt Clark MD [address] [place] [address] PCP - General Family Medicine 06/29/23 Song Plugger Relationship Specialty Start Date End Date Curt Clark MD PCP - General Family Medicine 10/22/23 Team Status: Active Member Role Status Dates Curt Clark MD Primary Care Provider Active Start: September 14, 2024 George Salmeron DO Attending Provider Active Sta rt: September 14, 2024 Team Status: Active Member Role Status Dates Curt Clark MD Primary Care Provider Active Start: September 29, 2024 Trent Patterson MD Attending Provider Active St art: September 29, 2024 Team Status: Active Member Role Status Dates Curt Clark MD Primary Care Provider Active Start: October 10, 2024 Jaquan Frausto DO Attending Provider Active S tart: October 10, 2024 Team Status: Active Member Role Status Dates George Salmeron DO Attending Provider Active Sta rt: October 11, 2024 End: October 14, 2024 Shaikh Kim MD Referring Provider Active Sta rt: October 11, 2024 End: October 14, 2024 Team Status: Active Member Role Status Dates Curt Clark MD Primary Care Provider Active Start: October 11, 2024 Shaikh Kim MD Attending Provider Active Sta rt: October 11, 2024 Team Status: Active Member Role Status Dates Curt Clark MD Primary Care Provider Active Start: October 12, 2024 Renetta Mcmanus CMA Attending Provider Active Start: October 12, 2024 Team Status: Inactive Member Role Status Dates Yuniel Huggins DO Attending Provider Active Start: October 12, 2024 End: October 12, 2024 Team Status: Active Member Role Status Dates Curt Clark MD Primary Care Provider Active Start: October 13, 2024 Shaikh Kim MD Attending Provider Active Sta rt: October 13, 2024 Team Status: Active Member Role Status Dates Curt Clark MD Primary Care Provide r, Attending Provider Active Start: October 14, 2024 Team Status: Active Member Role Status Dates Curt Clark MD Attending Provider Active St art: October 23, 2024 Team Status: Inactive Member Role Status Dates Curt Clark MD Primary Care Provide r, Attending Provider Active Start: October 30, 2024 End: October 30, 2024 Team Status: Active Member Role Status Dates Curt Clark MD Primary Care Provider Active Start: November 21, 2024 Radha Herbert DO Attending Provider Active Sta rt: November 21, 2024 Team Status: Active Member Role Status Dates Curt Clark MD Primary Care Provider Active Start: November 22, 2024 Akin Suarez MD Attending Provider Active Start : November 22, 2024 Team Status: Active Member Role Status Dates Curt Clark MD Primary Care Provider Active Start: November 23, 2024 Shaikh Kim MD Attending Provider Active Sta rt: November 23, 2024 Team Status: Active Member Role Status Dates Curt Clark MD Primary Care Provide r, Attending Provider Active Start: November 24, 2024 Team Status: Active Member Role Status Dates Curt Clark MD Primary Care Provider Active Start: November 26, 2024 Renetta Mcmanus CMA Attending Provider Active Start: November 26, 2024 Team Status: Inactive Member Role Status Dates Curt Clark MD Primary Care Provide r, Attending Provider Active Start: November 28, 2024 End: November 28, 2024 Song Plugger Relationship Specialty Start Date End Date Curt Clark MD PCP - General Family Medicine 10/22/23 Team Status: Active Member Role Status Dates Curt Clark MD Primary Care Provider Active Start: December 12, 2024 Claire Choi II, DO Active S tart: December 12, 2024 Misti Moser Mohsen , STRATEGIES ANALYST Attending Provider Acti ve Start: December 12, 2024 Team Status: Active Member Role Status Dates Curt Clark MD Primary Care Provider Active Start: December 19, 2024 Louis Mcadams DO Emergency Provider Active Sta rt: December 19, 2024 Jonathan Valenzuela MD Admit Provider, Atte nding Provider Active Start: December 19, 2024 Akin Suarez MD Other Provider Active Start: 2024 Team Status: Active Member Role Status Dates Curt Clark MD Primary Care Provider Active Start: November 21, 2024 George Salmeron DO Attending Provider Active Sta rt: November 21, 2024 Team Status: Inactive Member Role Status Dates Curt Clark MD Primary Care Provider Active Start: December 19, 2024 End: December 22, 2024 Louis Mcadams DO Emergency Provider Active Sta rt: December 19, 2024 End: December 22, 2024 Jonathan Valenzuela MD Admit Provider, Atte nding Provider Active Start: December 19, 2024 End: December 22, 2024 Akin Suarez MD Other Provider Active Start: 2024 End: December 22, 2024 Team Status: Active Member Role Status Dates Curt Clark MD Primary Care Provider Active Start: December 20, 2024 Louis Mcadams DO Emergency Provider Active Sta rt: December 20, 2024 Jonathan Valenzuela MD Admit Provider, Other Provider Activ e Start: December 20, 2024 Akin Suarez MD Attending Provider, Other Provider Active Start: December 20, 2024 Team Status: Active Member Role Status Dates Curt Clark MD Primary Care Provider Active Start: December 24, 2024 Akin Suarez MD Attending Provider Active Start : December 24, 2024 Team Status: Active Member Role Status Dates Curt Clark MD Primary Care Provider Active Start: December 25, 2024 Renetta Mcmanus CMA Attending Provider Active Start: December 25, 2024 Team Status: Inactive Member Role Status Dates Curt Clark MD Primary Care Provider Active Start: December 25, 2024 End: December 25, 2024 Akin Suarez MD Attending Provider Active Start : December 25, 2024 End: December 25, 2024 Team Status: Inactive Member Role Status Dates Curt Clark MD Primary Care Provide r, Attending Provider Active Start: December 26, 2024 End: December 26, 2024 Team Status: Active Member Role Status Dates Curt Clark MD Primary Care Provider Active Start: December 31, 2024 Akin Suarez MD Attending Provider Active Start : December 31, 2024 Team Status: Inactive Member Role Status Dates Curt Clark MD Primary Care Provider Active Start: January 02, 2025 End: January 02, 2025 Elicia Rhodes MD Attending Provid er, Referring Provider Active Start: January 02, 2025 End: January 02, 2025 Goals (unrecognized section and content) Goals may [...] BE BASED ON THE PRIMARY CLINICAL RECORDS. [employer] [facility]. provides no warranty or guarantee of the accuracy or completeness of information in this document.
--- NOTE | 2025-01-09 09:33 | XR_ITS ---
The [address] [address] Patient Name: MARTHA GOMEZ MRN: [id number] date: 1940 Sex: F Assigned Patient Location: [facility] Current Patient Location: [facility] Accession/Order Number: [id number] Exam Date: 01/09/2025 11:19 Report Date: 01/09/2025 11:22 At the request of: TYREE PARK MD Procedure: XR abdomen 1V SINGLE VIEW ABDOMEN COMPARISON: 10/10/2024 CLINICAL DATA: Follow-up history of kidney stones. Supine views of the abdomen and pelvis were obtained. There is mild air within nondistended small and large bowel loops. A small amount of colonic stool is present on the left. No soft tissue masses are seen. No obvious radiopaque renal or ureteral stones are visualized. There are calcified splenic granulomas. Dextroscoliotic curvature and degenerative changes are seen at the spine. There is prior cholecystectomy. XR/XR abdomen 1V IMPRESSION: NO OBVIOUS RADIOPAQUE STONES. Impression dictated by: Leslie Camilo M.D.01/09/2025 11:22 AM Dictation Location: [place] [address] Electronically authenticated by: [id number] Y Date: 01/09/2025 11:22
== END 2025-01-09 09:09 | disposition home or self-care (01) ==
LOC: RAD 09:11
PROVIDERS: PCP Family Medicine; Visit Provider Urology
DX: Z87.442 Personal history of urinary calculi (principal)
CPT/HCPCS: 74018

== ENCOUNTER 2025-02-04 13:44 | Observation (INO) | payer MEDICARE, OTHER, SELFPAY ==
[2025-02-04] VITALS (14 sets, daily range): BP systolic 128–172; BP diastolic 66–96; PULSE 18–94; TEMP 36.3–36.7; O2SAT 97–98; BMI 29.5; BMI 29.7
--- NOTE | 2025-02-04 13:45 | ECG_ITS ---
[facility] Test Date: 2025-02-04 Pat Name: MARTHA GOMEZ Department: Room: - Gender: Female Community Outreach Specialist: : 1940 Requested By: [id number] Order Number: [id number] Reading MD: MARY GEORGE Measurements Intervals [place] Rate: 90 P: -[id number] UT: -[address] QRS: 52 QRSD: 88 T: 90 QT: 358 QTc: 406 Interpretive Statements 1210 Atrial fibrillation [address] depression, probably digitalis effect 9140 abnormal rhythm ECG Compared to ECG 11/21/2024 17:34:42 No significant changes Electronically Signed On 02-04-2025 14:44:52 EDT by MARY GEORGE
--- NOTE | 2025-02-04 13:47 | ED_ITS ---
HPI - Weakness General Chief complaint: Weakness Stated complaint: WEAKNESS DIARRHEA Time Seen by Provider: 02/04/25 13:45 Source: patient and EMR Mode of arrival: ambulance History of Present Illness HPI Narrative: Patient is an 84-year-old female with a history of multiple myeloma who presents to the emergency department by ambulance after her 's home health nurse called 911. Patient reports weakness over the last several days associated with diarrhea. She has not had any fevers, chest pain or shortness of breath. She denies nausea, vomiting, abdominal pain. She denies syncope or falls. EMS reports that the patient did not want to come to the hospital but the home health nurse called 911. Patient states she drink a boost supplement drink today, no vomiting or urinary symptoms. No sick contacts in the home. No cough or congestion. 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 Related Data Home Medications ?Medication ?Instructions ?Recorded ?Confirmed atorvastatin 40 mg tablet 40 mg PO .once a day 04/19/23 02/04/25 carvedilol 12.5 mg tablet 12.5 mg PO Q12H 04/19/23 02/04/25 cholecalciferol (vitamin D3) 25 25 mcg PO BEDTIME 06/19/23 02/04/25 mcg (1,000 unit) capsule insulin NPH isoph U-100 human 100 15 unit subcut BID 06/19/23 02/04/25 unit/mL (3 mL) subcutaneous pen (Humulin N NPH U-100 Insulin KwikPen) omega 9-qsp-rcu-fish oil 300 1 cap PO DAILY 06/19/23 02/04/25 mg-1,000 mg capsule (Fish Oil) magnesium chloride 71.5 mg 71.5 mg PO DAILY 10/10/24 02/04/25 (magnesium chloride) tablet,delayed release (Slow-Mag) furosemide 40 mg tablet 40 mg PO DAILY 02/04/25 02/04/25 Previous Rx's ?Medication ?Instructions ?Recorded apixaban 2.5 mg tablet (Eliquis) 2.5 mg PO BID #60 tabs 10/14/24 ferrous sulfate 325 mg (65 mg 325 mg PO DAILY #30 tabs 10/14/24 iron) tablet Allergies Allergy/AdvReac Type Severity Reaction Status Date / Time lenalidomide (From Revlimid) Allergy Rash Verified 02/04/25 15:57 pregabalin (From Lyrica) Allergy Rash Verified 02/04/25 15:57 oxybutynin AdvReac Mild Rash Verified 02/04/25 15:57 Review of Systems ROS Constitutional Denies: fever or chills Ears, nose, mouth, and throat Denies: throat pain or nasal congestion Cardiovascular Denies: chest pain Respiratory Denies: shortness of breath or cough Gastrointestinal Reports: diarrhea; Denies: abdominal pain, nausea or vomiting Musculoskeletal Denies: back pain or neck pain Integumentary/Breast Denies: rash Neurological Denies: headache, numbness in extremities or weakness in extremities Hematologic/Lymphatic Denies: easy bruising or easy bleeding PFSH PFS Medical History (Updated 02/04/25 @ 16:05 by KRISTEN Hayden) Congestive heart failure ?I50.9 - Heart failure, unspecified (ICD-10) A-fib ?I48.91 - Unspecified atrial fibrillation (ICD-10) CHF (congestive heart failure) ?I50.9 - Heart failure, unspecified (ICD-10) Gastrointestinal hemorrhage with melena ?K92.1 - Melena (ICD-10) Upper gastrointestinal bleed ?K92.2 - Gastrointestinal hemorrhage, unspecified (ICD-10) Syncope and collapse ?R55 - Syncope and collapse (ICD-10) GI bleeding ?K92.2 - Gastrointestinal hemorrhage, unspecified (ICD-10) HLD (hyperlipidemia) ?E78.5 - Hyperlipidemia, unspecified (ICD-10) H/O: CVA (cerebrovascular accident) ?Z86.73 - Personal history of transient ischemic attack (TIA), and cerebral infarction without residual deficits (ICD-10) Type 2 diabetes mellitus ?E11.9 - Type 2 diabetes mellitus without complications (ICD-10) Cerebrovascular disease ?I67.9 - Cerebrovascular disease, unspecified (ICD-10) Paroxysmal atrial fibrillation ?I48.0 - Paroxysmal atrial fibrillation (ICD-10) CKD (chronic kidney disease) stage 4, GFR 15-29 ml/min ?N18.4 - Chronic kidney disease, stage 4 (severe) (ICD-10) Type 2 diabetes mellitus with hyperglycemia ?E11.65 - Type 2 diabetes mellitus with hyperglycemia (ICD-10) Hypertension ?I10 - Essential (primary) hypertension (ICD-10) Cataract ?H26.9 - Unspecified cataract (ICD-10) Multiple myeloma ?C90.00 - Multiple myeloma not having achieved remission (ICD-10) Stroke ?I63.9 - Cerebral infarction, unspecified (ICD-10) Osteoarthritis of left knee ?M17.12 - Unilateral primary osteoarthritis, left knee (ICD-10) Hypertension ?I10 - Essential (primary) hypertension (ICD-10) Surgical History Hx of cholecystectomy ?Z90.49 - Acquired absence of other specified parts of digestive tract (ICD- 10) History of hysterectomy ?Z90.710 - Acquired absence of both cervix and uterus (ICD-10) Family History Mother Family history of CHF (congestive heart failure) Family history of diabetes mellitus Family history of stroke Sister Family history of CHF (congestive heart failure) Family history of diabetes mellitus Family history of hypertension Grandmother Family history of cancer Family history of diabetes mellitus Brother No problems noted. Father No problems noted. Social History Within the past year, how often did you have a drink containing alcohol: never Score interpretation: A score less than 3 is consistent with normal alcohol consumption. 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 Highest level of school completed/degree received: some college, no degree Are you now , , , , never or living with a partner: Little interest or pleasure in doing things: not at all Feeling down, depressed, or hopeless: not at all Feel stressed/tense/nervous/anxious/difficulty sleeping: not at all Do you think of yourself as: straight/heterosexual Gender Identity: female Exam Narrative Exam Narrative: Gen.: Awake, alert, in no distress, generally weak Head: Normocephalic, atraumatic ENT: Moist mucous membranes Respiratory: No respiratory distress, lungs clear bilaterally Cardio: Regular rate and rhythm Gastrointestinal: Abdomen is soft, nondistended and nontender to palpation Extremities: Moves extremities equally, no injuries noted Psych: Normal mood and affect Neuro: No focal neuro deficit Skin: Warm, dry, intact Constitutional Vital Signs, click to edit/add: Last Vital Signs Temp 98.0 F 02/04/25 13:46 Pulse 94 H 02/04/25 14:31 Resp 19 02/04/25 14:31 BP 149/66 H 02/04/25 14:31 Pulse Ox 97 02/04/25 14:31 Course Vital Signs Vital signs: Vital Signs Temperature 98.0 F 02/04/25 13:46 Pulse Rate 78 02/04/25 13:46 Respiratory Rate 18 02/04/25 13:46 Blood Pressure 152/78 H 02/04/25 13:46 Pulse Oximetry 98 02/04/25 13:46 Temperature 98.0 F 02/04/25 13:46 Pulse Rate 94 H 02/04/25 14:31 Respiratory Rate 19 02/04/25 14:31 Blood Pressure 149/66 H 02/04/25 14:31 Pulse Oximetry 97 02/04/25 14:31 MDM - Weakness MDM Narrative Medical decision making narrative: On arrival to the emergency department, patient was evaluated and IV fluids were started. She had no episodes of emesis or diarrhea in the ER. She had no complaints of headache, chest pain or shortness of breath. Chest x-ray with no evidence of acute cardiopulmonary changes, labs are unremarkable other than increased BUN and creatinine. Patient's port was accessed and blood cultures were drawn. Respiratory swabs are negative. Patient states since her cardioversion she has had ongoing dizziness. Daughter believes it may be due to low blood pressure since the cardioversion. Patient states for the last 3 days she has been feeling more weak, daughter states that her blood pressure was 104 systolic this morning. Patient may have been hypovolemic due to recent diarrhea. She has no complaints of abdominal pain. She was reevaluated after urine specimen was negative, she appears clinically improved after IV fluids. Discussed observation admission with the patient and her daughter at bedside who feels this is most appropriate. SUPERVISED APC VISIT, PHYSICIAN ATTESTATION: Based on the medical record the care appears appropriate. ? Medical Records Attestation: I reviewed the patient's medical records. Lab Data Attestation: I reviewed the patient's lab results. Labs: Lab Results 03/24/25 03/24/25 03/24/25 Range/Units 14:02 14:05 15:10 WBC 10.6 (4.0-11.0) 10^3/uL RBC 4.40 (4.20-5.40) 10^6/uL Hgb 13.5 (12.0-16.0) g/dL Hct 40.7 (36.0-48.0) % MCV 92.5 (81.0-99.0) fL MCH 30.7 (26.7-34.0) pg MCHC 33.2 (29.9-35.2) g/dL RDW 12.6 (11.0-15.0) % Plt Count 207 (150-450) 10^3/uL MPV 11.2 (9.5-13.5) fL Neut % (Auto) 70.3 (43.0-75.0) % Lymph % (Auto) 22.7 (20.5-60.0) % [place] % (Auto) 5.8 (1.7-12.0) % Eos % (Auto) 0.7 L (0.9-7.0) % Baso % (Auto) 0.2 (0.2-2.0) % Neut # (Auto) 7.4 H (1.4-6.5) 10^3/uL Lymph # (Auto) 2.4 (1.2-3.8) 10^3/uL [place] # (Auto) 0.6 (0.3-0.8) 10^3/uL Eos # (Auto) 0.1 (0.0-0.7) 10^3/uL Baso # (Auto) 0.0 (0.0-0.1) 10^3/uL Abs Immat Gran (auto) 0.03 (0.00-0.03) 10^3/uL Imm/Tot Granulo (auto) 0.3 (0.0-0.5) % PT 10.7 (9.0-11.6) sec INR 1.01 VBG pH 7.278 L (7.330-7.430) VBG pCO2 34.8 L (40.0-52.0) mmHg Sodium 139 (136-145) mmol/L Potassium 4.6 (3.5-5.1) mmol/L Chloride 108 H (98-107) mmol/L Carbon Dioxide 19.5 L (21.0-32.0) mmol/L Anion Gap 16.1 BUN 61.0 H (7.0-18.0) mg/dL Creatinine 2.90 H (0.55-1.02) mg/dL Est GFR ( Amer) 19 L (>=60 mL/min/1.73m^2) Est GFR (Non-Af Amer) 16 L (>=60 mL/min/1.73m^2) BUN/Creatinine Ratio 21.0 Glucose 154 H (74-106) mg/dL Lactate 0.9 (0.4-2.0) mmol/L Calcium 9.0 (8.5-10.1) mg/dL Magnesium 2.0 (1.8-2.4) mg/dL Total Bilirubin 0.3 (0.2-1.0) mg/dL AST 16 (15-37) U/L ALT 18 (14-59) U/L Alkaline Phosphatase 145 H (46-116) U/L Troponin I High Sens 10.5 (4.0-51.3) pg/mL Total Protein 7.0 (6.4-8.2) g/dL Albumin 2.9 L (3.4-5.0) g/dL Globulin 4.1 g/dL Albumin/Globulin Ratio 0.7 TSH 2.614 (0.358-3.740) uIU/mL Urine Color Lt. yellow (YELLOW) Urine Clarity Clear (CLEAR) Urine pH 5.5 (5.0-9.0) Ur Specific [place] 1.015 (1.005-1.025) Urine Protein 30 A (NEG/TRACE) mg/dL Urine Glucose (UA) Negative (NEGATIVE) mg/dL Urine Ketones Negative (NEGATIVE) mg/dL Urine Occult Blood Trace-i (NEGATIVE) Urine Nitrite Negative (NEGATIVE) Urine Bilirubin Negative (NEGATIVE) Urine Urobilinogen 0.2 (0.2-1.0) EU/dL Ur Leukocyte Esterase Negative (NEGATIVE) Urine RBC 0-2 (0-2) #/HPF Urine WBC 0-2 A (NONE SEEN) #/HPF Ur Squamous Epith Cells Rare (NONE/RARE) #/LPF Urine Crystals None seen (None Seen) #/HPF Urine Bacteria None seen (NONE SEEN) #/HPF Urine Casts None seen (NONE SEEN) #/LPF Urine Mucus None seen (NONE SEEN) Ur Culture Indicated? No Influenza Type A Ag Negative Influenza Type B Ag Negative SARS-CoV-2 Ag (CV2AG) Negative (NEGATIVE) Imaging Data Chest x-ray: Attestation: I have reviewed the pertinent imaging results. ECG Data Attestation: I personally reviewed and interpreted this ECG as follows: (Atrial fibrillation at a rate of 90, minimal ST depression with no acute ST elevation or ectopy. EKG reviewed by attending physician) Discharge Plan Discharge Chief Complaint: Weakness Patient Disposition: Admitted as Observation Time of Disposition Decision: 16:05 Prescriptions / Home Meds: No Action atorvastatin 40 mg tablet 40 mg PO .once a day carvedilol 12.5 mg tablet 12.5 mg PO Q12H Humulin N NPH Insulin KwikPen 100 unit/mL (3 mL) insulin pen 10 unit subcut BID cholecalciferol (vitamin D3) 25 mcg (1,000 unit) capsule 25 mcg PO BEDTIME omega 1-meq-cyx-fish oil [Fish Oil] 300-1,000 mg capsule 1 cap PO BID amlodipine 5 mg tablet 5 mg PO DAILY Slow-Mag 71.5 mg tablet,delayed release (DR/EC) 71.5 mg PO DAILY Eliquis 2.5 mg tablet 2.5 mg PO BID Qty: 60 0RF ferrous sulfate 325 mg (65 mg iron) tablet 325 mg PO DAILY Qty: 30 0RF docusate sodium [Colace] 100 mg capsule 100 mg PO DAILY Qty: 30 0RF acyclovir 400 mg tablet 400 mg PO BID PRN (Reason: OUTBREAKS) escitalopram oxalate 10 mg tablet 10 mg PO DAILY omeprazole 20 mg capsule,delayed release(DR/EC) 20 mg PO DAILY cefuroxime axetil 250 mg Tablet 250 mg PO BID 7 Days Qty: 14 0RF benzonatate 100 mg Capsule 100 mg PO Q8H PRN (Reason: Cough) 7 Days Qty: 21 0RF Print Language: Prydeinig Referrals: Karie Mcfadden MD [Primary Care Provider] - 1 week
[2025-02-04] MEDS: 0.9 % SODIUM CHLORIDE 1,000 ML 1000 ML IV (14:09)
[2025-02-04 14:19] LABS: Basophils Percent Auto 0.2 % (0.2-2.0); Eosinophils Absolute Auto 0.1 10^3/uL (0.0-0.7); Eosinophils Percent Auto 0.7 % (0.9-7.0); Hematocrit 40.7 % (36.0-48.0); Hemoglobin 13.5 g/dL (12.0-16.0); Immature Granulocytes Abs Auto 0.03 10^3/uL (0.00-0.03); Immature Granulocytes Pct Auto 0.3 % (0.0-0.5); Lymphocytes Absolute Auto 2.4 10^3/uL (1.2-3.8); Lymphocytes Percent Auto 22.7 % (20.5-60.0); Mean Corpuscular HGB Conc 33.2 g/dL (29.9-35.2); Mean Corpuscular Hemoglobin 30.7 pg (26.7-34.0); Mean Corpuscular Volume 92.5 fL (81.0-99.0); Mean Platelet Volume 11.2 fL (9.5-13.5); Monocytes Absolute Auto 0.6 10^3/uL (0.3-0.8); Monocytes Percent Auto 5.8 % (1.7-12.0); Neutrophils Absolute Auto 7.4 10^3/uL (1.4-6.5); Neutrophils Percent Auto 70.3 % (43.0-75.0); Platelet Count 207 10^3/uL (150-450); Red Cell Distribution Width 12.6 % (11.0-15.0); White Blood Count 10.6 10^3/uL (4.0-11.0)
[2025-02-04 14:21] LABS: PCO2 VBG 34.8 mmHg (40.0-52.0); pH VBG 7.278 (7.330-7.430)
[2025-02-04 14:32] LABS: Influenza Virus A Antigen Negative; Influenza Virus B Antigen Negative; Internal Control Within Normal Limits; SARS-CoV-2 Ag NEGATIVE (NEGATIVE)
[2025-02-04 14:41] LABS: INR 1.01; Prothrombin Time 10.7 sec (9.0-11.6)
[2025-02-04 14:45] LABS: Lactate/Lactic Acid 0.9 mmol/L (0.4-2.0)
[2025-02-04 14:52] LABS: Alanine Aminotransferase 18 U/L (14-59); Albumin Globulin Ratio 0.7; Albumin Level 2.9 g/dL (3.4-5.0); Alkaline Phosphatase 145 U/L (46-116); Anion Gap 16.1; Aspartate Amino Transferase 16 U/L (15-37); Bilirubin Total 0.3 mg/dL (0.2-1.0); Carbon Dioxide 19.5 mmol/L (21.0-32.0); Chloride 108 mmol/L (98-107); Estimated GFR (African America 19 (>=60 mL/min/1.73m^2); Estimated GFR (Non-African Ame 16 (>=60 mL/min/1.73m^2); Globulin 4.1 g/dL; Glucose 154 mg/dL (74-106); Potassium 4.6 mmol/L (3.5-5.1); Sodium 139 mmol/L (136-145)
[2025-02-04 14:53] LABS: Thyroid Stimulating Hormone 2.614 uIU/mL (0.358-3.740); Troponin I High Sensitivity 10.5 pg/mL (4.0-51.3)
[2025-02-04 15:24] LABS: Bilirubin Urine NEGATIVE (NEGATIVE); Blood Urine TRACE-I (NEGATIVE); Clarity Urine CLEAR (CLEAR); Color Urine LT. YELLOW (YELLOW); Glucose Urine UA NEGATIVE (NEGATIVE); Ketones Urine NEGATIVE (NEGATIVE); Leukocyte Esterase Urine NEGATIVE (NEGATIVE); Nitrite Urine NEGATIVE (NEGATIVE); Protein Urine 30 mg/dL (NEG/TRACE); Specific Gravity Urine 1.015 (1.005-1.025); Urobilinogen Urine 0.2 EU/dL (0.2-1.0); pH Urine 5.5 (5.0-9.0)
[2025-02-04 15:34] LABS: Bacteria Urine NONE SEEN #/HPF (NONE SEEN); Cast Seen? NONE SEEN #/LPF (NONE SEEN); Crystals Seen? None Seen #/HPF (None Seen); Mucus Urine NONE SEEN (NONE SEEN); RBC Urine 0-2 #/HPF (0-2); Squamous Epithelial Cell Urine RARE #/LPF (NONE/RARE); Urine Culture Indicated NO; WBC Urine 0-2 #/HPF (NONE SEEN)
--- NOTE | 2025-02-04 19:26 | P.HP_ITS ---
HPI H&P: HPI History of Present Illness Chief complaint: WEAKNESS DIARRHEA dehydration Narrative: Patient was seen in the emergency room with increasing weakness and diarrhea. Denies abdominal pain or nausea or vomiting, just the diarrhea, also been feeling weak since her cardioversion and some hypotensive episodes. In ER blood pressures elevated, also found to have dehydration is admitted for workup and treatment of same When I saw patient up in the medical surgical floor, resting comfortably in bed without any specific complaint, has not had a bowel movement since stool test were ordered Opioid HPI Opioid Management Most Recent Pain and Opioid Data: Last Pain Scale 0 11/23/24 14:28 11/23/24 Last Pain Assessment 02/04/25 18:01 Last ORT Total Score 0 02/04/25 16:55 02/04/25 Last ORT Risk Category Low Risk 02/04/25 16:55 02/04/25 Review of Systems ROS Status of ROS 10 or more systems reviewed and unremark able except as noted in history and below PFS PFS Medical History Congestive heart failure ?I50.9 - Heart failure, unspecified (ICD-10) A-fib ?I48.91 - Unspecified atrial fibrillation (ICD-10) CHF (congestive heart failure) ?I50.9 - Heart failure, unspecified (ICD-10) Gastrointestinal hemorrhage with melena ?K92.1 - Melena (ICD-10) Upper gastrointestinal bleed ?K92.2 - Gastrointestinal hemorrhage, unspecified (ICD-10) Syncope and collapse ?R55 - Syncope and collapse (ICD-10) GI bleeding ?K92.2 - Gastrointestinal hemorrhage, unspecified (ICD-10) HLD (hyperlipidemia) ?E78.5 - Hyperlipidemia, unspecified (ICD-10) H/O: CVA (cerebrovascular accident) ?Z86.73 - Personal history of transient ischemic attack (TIA), and cerebral infarction without residual deficits (ICD-10) Type 2 diabetes mellitus ?E11.9 - Type 2 diabetes mellitus without complications (ICD-10) Cerebrovascular disease ?I67.9 - Cerebrovascular disease, unspecified (ICD-10) Paroxysmal atrial fibrillation ?I48.0 - Paroxysmal atrial fibrillation (ICD-10) CKD (chronic kidney disease) stage 4, GFR 15-29 ml/min ?N18.4 - Chronic kidney disease, stage 4 (severe) (ICD-10) Type 2 diabetes mellitus with hyperglycemia ?E11.65 - Type 2 diabetes mellitus with hyperglycemia (ICD-10) Hypertension ?I10 - Essential (primary) hypertension (ICD-10) Cataract ?H26.9 - Unspecified cataract (ICD-10) Multiple myeloma ?C90.00 - Multiple myeloma not having achieved remission (ICD-10) Stroke ?I63.9 - Cerebral infarction, unspecified (ICD-10) Osteoarthritis of left knee ?M17.12 - Unilateral primary osteoarthritis, left knee (ICD-10) Hypertension ?I10 - Essential (primary) hypertension (ICD-10) Surgical History Hx of cholecystectomy ?Z90.49 - Acquired absence of other specified parts of digestive tract (ICD- 10) History of hysterectomy ?Z90.710 - Acquired absence of both cervix and uterus (ICD-10) Family History Mother Family history of CHF (congestive heart failure) Family history of diabetes mellitus Family history of stroke Sister Family history of CHF (congestive heart failure) Family history of diabetes mellitus Family history of hypertension Grandmother Family history of cancer Family history of diabetes mellitus Brother No problems noted. Father No problems noted. Social History (Updated 02/04/25 @ 17:10 by Marisa Berman RN) Within the past year, how often did you have a drink containing alcohol: never Within the past year, how often did you have six or more drinks on one occasion: never Score interpretation: A score less than 3 is consistent with normal alcohol consumption. 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 Highest level of school completed/degree received: some college, no degree Do you want help with school or training: No Are you now , , , , never or living with a partner: Little interest or pleasure in doing things: not at all Feeling down, depressed, or hopeless: not at all Feel stressed/tense/nervous/anxious/difficulty sleeping: not at all Do you think of yourself as: straight/heterosexual Gender Identity: female Meds Home Medications and Allergies Home Medications ?Medication ?Instructions ?Recorded ?Confirmed ?Type atorvastatin 40 mg tablet 40 mg PO .once a day 04/19/23 02/04/25 History carvedilol 12.5 mg tablet 12.5 mg PO Q12H 04/19/23 02/04/25 History cholecalciferol (vitamin D3) 25 25 mcg PO BEDTIME 06/19/23 02/04/25 History mcg (1,000 unit) capsule insulin NPH isoph U-100 human 100 15 unit subcut BID 06/19/23 02/04/25 History unit/mL (3 mL) subcutaneous pen (Humulin N NPH U-100 Insulin KwikPen) omega 7-lfk-cxs-fish oil 300 1 cap PO DAILY 06/19/23 02/04/25 History mg-1,000 mg capsule (Fish Oil) magnesium chloride 71.5 mg 71.5 mg PO DAILY 10/10/24 02/04/25 History (magnesium chloride) tablet,delayed release (Slow-Mag) apixaban 2.5 mg tablet (Eliquis) 2.5 mg PO BID #60 tabs 10/14/24 02/04/25 Rx ferrous sulfate 325 mg (65 mg 325 mg PO DAILY #30 tabs 10/14/24 02/04/25 Rx iron) tablet furosemide 40 mg tablet 40 mg PO DAILY 02/04/25 02/04/25 History Allergies Allergy/AdvReac Type Severity Reaction Status Date / Time lenalidomide (From Revlimid) Allergy Rash Verified 02/04/25 15:57 pregabalin (From Lyrica) Allergy Rash Verified 02/04/25 15:57 oxybutynin AdvReac Mild Rash Verified 02/04/25 15:57 Exam Constitutional Vital Signs, click to edit/add: Last Vital Signs Temp 97.7 F 02/04/25 16:55 Pulse 93 H 02/04/25 17:56 Resp 22 H 02/04/25 16:55 BP 172/87 H 02/04/25 16:55 Pulse Ox 98 02/04/25 16:55 O2 Del Method Room Air 02/04/25 18:51 Documenting provider has reviewed patient's vital signs: yes Common normals: no apparent distress Chest Common normals: inspection of chest normal Respiratory Common normals: normal respiratory effort and no retractions Cardio Common normals: regular rate, regular rhythm and no murmurs GI Common normals: Normal to inspection, nondistended, normoactive bowel sounds present and soft to palpation; tender (Patient does have some mild tenderness of right lower quadrant) Results Labs Labs: Short CBC 02/04/25 Range/Units 14:02 WBC 10.6 (4.0-11.0) 10^3/uL Hgb 13.5 (12.0-16.0) g/dL Hct 40.7 (36.0-48.0) % Plt Count 207 (150-450) 10^3/uL BMP 02/04/25 14:02 Sodium 139 Potassium 4.6 Chloride 108 H Carbon Dioxide 19.5 L BUN 61.0 H Creatinine 2.90 H Glucose 154 H Calcium 9.0 Liver Function 02/04/25 Range/Units 14:02 Total Bilirubin 0.3 (0.2-1.0) mg/dL AST 16 (15-37) U/L ALT 18 (14-59) U/L Alkaline Phosphatase 145 H (46-116) U/L Albumin 2.9 L (3.4-5.0) g/dL Urine 02/04/25 Range/Units 15:10 Urine Color Lt. yellow (YELLOW) Urine Clarity Clear (CLEAR) Urine pH 5.5 (5.0-9.0) Ur Specific [place] 1.015 (1.005-1.025) Urine Protein 30 A (NEG/TRACE) mg/dL Urine Glucose (UA) Negative (NEGATIVE) mg/dL ABG ABG results: 02/04/25 14:02 VBG pH 7.278 L VBG pCO2 34.8 L Assessment and Plan Assessment and Plan (1) Acute on chronic diastolic (congestive) heart failure: (2) Dehydration: (3) A-fib: (4) CKD (chronic kidney disease) stage 4, GFR 15-29 ml/min: (5) Type 2 diabetes mellitus with hyperglycemia: (6) Hypertension: Qualifiers: Hypertension type: primary hypertension Qualified Code(s): I10 - Essential (primary) hypertension Plan Admission findings: Tachycardia, respiratory distress, elevated blood pressure, elevated BUN/creatinine from baseline, baseline creatinine of 2.36, admission cr eatinine of 2.90 which is 122.8% above baseline), secondary to dehydration secondary to likely gastroenteritis, stool studies pending Acute gastroenteritis resulting in dehydration-IV fluids overnight, repeat labs in a.m. to see if creatinine improves Right lower quadrant tenderness, patient states if he pushed hard enough on her anywhere it hurts, may need altered versus CT can, not sure if she still has her appendix Diabetes mellitus-insulin sliding scale and home medications Alkaline phosphatase elevation likely related to dehydration-repeat in a.m. Acute elevation in creatinine with complicated by chronic kidney disease stage IV-IV hydration Hypercholesterolemia continue with home medications Hypertension-uncontrolled on admission somewhat improved now, IV hydralazine as needed and home medications, she does describe hypotension at times, when she is stable she may be a little back off of that her dose of Cardizem Atrial fibrillation with rate currently controlled, somewhat elevated in ER but improved now, maintain long-term anticoagulation Chronic combined congestive heart failure-stable, hold off on Lasix for today Hypomagnesemia-continue with home supplementation Admission status: Patient admitted with dehydration likely secondary to just gastroenteritis with unresolved diarrhea, stool studies pending, medically necessary treatment may only span 1 midnight, observation status. If medically necessary treatment spans 2 midnights she will be changed to inpatient status
[2025-02-04 20:16] LABS: Glucometer 189 mg/dL (74-106)
[2025-02-04] MEDS: HYOSCYAMINE SULFATE 0.125 MG TAB.SUBL SL (20:42)
[2025-02-04] MEDS: LACTATED RINGER'S SOLUTION 1,000 ML 100 ML IV (20:42)
[2025-02-04] MEDS: APIXABAN 5 MG TABLET 2.5 MG PO (20:42)
[2025-02-04] MEDS: CARVEDILOL 12.5 MG TABLET PO (20:42)
[2025-02-04] MEDS: CHOLECALCIFEROL (VITAMIN D3) 25 MCG/1,000 UNITS TABLET PO (22:21)
[2025-02-04] MEDS: INSULIN NPH HUMAN ISOPHANE 100 UNIT/ML 10ML MDV 15 UNIT SQ (22:21)
[2025-02-05] VITALS (10 sets, daily range): BP systolic 113–151; BP diastolic 70–80; PULSE 64–98; TEMP 36.3–36.4; O2SAT 91–97
[2025-02-05 05:20] LABS: PCO2 VBG 40.3 mmHg (40.0-52.0); pH VBG 7.233 (7.330-7.430)
[2025-02-05 05:21] LABS: Basophils Percent Auto 0.2 % (0.2-2.0); Eosinophils Absolute Auto 0.2 10^3/uL (0.0-0.7); Hematocrit 37.1 % (36.0-48.0); Hemoglobin 12.2 g/dL (12.0-16.0); Immature Granulocytes Abs Auto 0.03 10^3/uL (0.00-0.03); Immature Granulocytes Pct Auto 0.4 % (0.0-0.5); Lymphocytes Absolute Auto 2.8 10^3/uL (1.2-3.8); Lymphocytes Percent Auto 33.8 % (20.5-60.0); Mean Corpuscular HGB Conc 32.9 g/dL (29.9-35.2); Mean Corpuscular Hemoglobin 30.3 pg (26.7-34.0); Mean Corpuscular Volume 92.3 fL (81.0-99.0); Mean Platelet Volume 11.3 fL (9.5-13.5); Monocytes Absolute Auto 0.6 10^3/uL (0.3-0.8); Monocytes Percent Auto 7.6 % (1.7-12.0); Neutrophils Absolute Auto 4.6 10^3/uL (1.4-6.5); Platelet Count 187 10^3/uL (150-450); Red Blood Count 4.02 10^6/uL (4.20-5.40); Red Cell Distribution Width 12.7 % (11.0-15.0); White Blood Count 8.2 10^3/uL (4.0-11.0)
[2025-02-05 05:42] LABS: Alanine Aminotransferase 12 U/L (14-59); Albumin Globulin Ratio 0.7; Albumin Level 2.5 g/dL (3.4-5.0); Alkaline Phosphatase 120 U/L (46-116); Anion Gap 15.2; Aspartate Amino Transferase 12 U/L (15-37); BUN Creatinine Ratio 21.1; Bilirubin Total 0.2 mg/dL (0.2-1.0); Calcium 8.4 mg/dL (8.5-10.1); Carbon Dioxide 19.1 mmol/L (21.0-32.0); Chloride 112 mmol/L (98-107); Estimated GFR (African America 22 (>=60 mL/min/1.73m^2); Estimated GFR (Non-African Ame 18 (>=60 mL/min/1.73m^2); Globulin 3.4 g/dL; Glucose 129 mg/dL (74-106); Potassium 4.3 mmol/L (3.5-5.1); Sodium 142 mmol/L (136-145); Total Protein 5.9 g/dL (6.4-8.2)
[2025-02-05] MEDS: HYOSCYAMINE SULFATE 0.125 MG TAB.SUBL SL ×2 (05:53→11:15)
[2025-02-05] MEDS: LACTATED RINGER'S SOLUTION 1,000 ML 100 ML IV (05:55)
[2025-02-05] MEDS: INSULIN NPH HUMAN ISOPHANE 100 UNIT/ML 10ML MDV 15 UNIT SQ (08:22)
[2025-02-05] MEDS: CARVEDILOL 12.5 MG TABLET PO (08:23)
[2025-02-05] MEDS: FISH OIL 1,000 MG CAPSULE 1000 MG PO (08:23)
[2025-02-05] MEDS: MAGNESIUM OXIDE 400 MG TABLET PO (08:23)
[2025-02-05] MEDS: ATORVASTATIN CALCIUM 40 MG TABLET PO (08:23)
[2025-02-05] MEDS: FERROUS SULFATE 325 MG TABLET PO (08:23)
[2025-02-05] MEDS: APIXABAN 5 MG TABLET 2.5 MG PO (08:23)
--- NOTE | 2025-02-05 10:30 | SWNOTE1 ---
SW received a message from Case Management and pt has [facility] home health PT services coming in. Pt also has meals on wheels coming in.
--- NOTE | 2025-02-05 10:39 | SWNOTE1 ---
SW faxed face sheet, ED note, H&P, and OT note to [facility].
[2025-02-05 11:16] LABS: Glucometer 151 mg/dL (74-106)
--- NOTE | 2025-02-05 11:31 | CM.NOTE ---
Rounds made with Dr. Mccullough, pt denies diarrhea today. Pt will discharge to home, pt is active with [facility] and has Meals on Wheels. Pt will f/u Dr. Mcfadden.
--- NOTE | 2025-02-05 12:02 | P.DS_ITS ---
DS: Providers Provider Date of admission: 02/04/25 16:42 Primary care physician: Karie Mcfadden MD Consults: 02/04/25 18:42 Consult to Pharmacy Routine Consulting Provider: Reason for consultation: Please [place] me when Med Rec is Updated Has provider been notified: No Occupational Therapy Eval and Treat Routine Reason for consultation: Only if needed for Rehab Has provider been notified: No Physical Therapy Eval and Treat Routine Reason for consultation: Eval and Treat Has provider been notified: No DS: Diagnosis Discharge Diagnosis (1) MARIAMA (acute kidney injury): (2) Dehydration: (3) Diarrhea: (4) Type 2 diabetes mellitus with hyperglycemia: (5) Hypertension: (6) CKD (chronic kidney disease) stage 4, GFR 15-29 ml/min: (7) Chronic heart failure with preserved ejection fraction (HFpEF): (8) Paroxysmal atrial fibrillation: (9) Multiple myeloma: DS: Summary Hospital Course Hospital Course: Reason for admission: See ER note and H&P for details. 84 y/o female to ER with weakness and diarrhea. Reports diarrhea for about 1 week. No nausea, vomiting, or abdominal pain. Weakness worsening and to ER. Given IV fluids in ER and labs showed dehydration. Admitted for treatment. Hospital course: Resumed home medication. Symptoms improved overnight. Vitals stable and labs improved. Tolerating oral intake and drinking well. Ambulating around room without assistance and evaluated by PT/OT. Discharged home in stable condition. Will resume home medication without change. Increase oral intake. Time Spent with Patient Time attestation: Total time spent providing and/or coordinating discharge services: Time spent: greater than 30 minutes Exam Constitutional Vital Signs, click to edit/add: Last Vital Signs Temp 97.4 F L 02/05/25 07:25 Pulse 98 H 02/05/25 09:57 Resp 18 02/05/25 08:16 BP 151/80 H 02/05/25 07:25 Pulse Ox 95 02/05/25 11:14 O2 Del Method Room Air 02/05/25 11:14 Documenting provider has reviewed patient's vital signs: yes Common normals: no apparent distress, oriented x3 and alert HENMT Common normals: normocephalic Eye Common normals: PERRL and EOMs intact bilaterally Respiratory Common normals: normal respiratory effort and clear to auscultation bilaterally Cardio Common normals: regular rate, regular rhythm, no gallops, no murmurs and no rub GI Common normals: Normal to inspection, nondistended, normoactive bowel sounds present and non-tender Extremity Common normals: no pedal edema DS: Data Data Completed and Pending Labs on day of discharge: Labs from last 24 hours 02/05/25 02/05/25 02/04/25 11:14 05:10 20:10 WBC 8.2 RBC 4.02 L Hgb 12.2 Hct 37.1 MCV 92.3 MCH 30.3 MCHC 32.9 RDW 12.7 Plt Count 187 MPV 11.3 Neut % (Auto) 56.0 Lymph % (Auto) 33.8 [place] % (Auto) 7.6 Eos % (Auto) 2.0 Baso % (Auto) 0.2 Neut # (Auto) 4.6 Lymph # (Auto) 2.8 [place] # (Auto) 0.6 Eos # (Auto) 0.2 Baso # (Auto) 0.0 Abs Immat Gran (auto) 0.03 Imm/Tot Granulo (auto) 0.4 PT INR VBG pH 7.233 L VBG pCO2 40.3 Sodium 142 Potassium 4.3 Chloride 112 H Carbon Dioxide 19.1 L Anion Gap 15.2 BUN 53.0 H Creatinine 2.51 H Est GFR ( Amer) 22 L Est GFR (Non-Af Amer) 18 L BUN/Creatinine Ratio 21.1 Glucose 129 H Lactate Calcium 8.4 L Magnesium Total Bilirubin 0.2 AST 12 L ALT 12 L Alkaline Phosphatase 120 H Troponin I High Sens Total Protein 5.9 L Albumin 2.5 L Globulin 3.4 Albumin/Globulin Ratio 0.7 TSH Urine Color Urine Clarity Urine pH Ur Specific [place] Urine Protein Urine Glucose (UA) Urine Ketones Urine Occult Blood Urine Nitrite Urine Bilirubin Urine Urobilinogen Ur Leukocyte Esterase Urine RBC Urine WBC Ur Squamous Epith Cells Urine Crystals Urine Bacteria Urine Casts Urine Mucus Ur Culture Indicated? Influenza Type A Ag Influenza Type B Ag SARS-CoV-2 Ag (CV2AG) POC Glucose 151 H 189 H 02/04/25 02/04/25 02/04/25 15:10 14:05 14:02 WBC 10.6 RBC 4.40 Hgb 13.5 Hct 40.7 MCV 92.5 MCH 30.7 MCHC 33.2 RDW 12.6 Plt Count 207 MPV 11.2 Neut % (Auto) 70.3 Lymph % (Auto) 22.7 [place] % (Auto) 5.8 Eos % (Auto) 0.7 L Baso % (Auto) 0.2 Neut # (Auto) 7.4 H Lymph # (Auto) 2.4 [place] # (Auto) 0.6 Eos # (Auto) 0.1 Baso # (Auto) 0.0 Abs Immat Gran (auto) 0.03 Imm/Tot Granulo (auto) 0.3 PT 10.7 INR 1.01 VBG pH 7.278 L VBG pCO2 34.8 L Sodium 139 Potassium 4.6 Chloride 108 H Carbon Dioxide 19.5 L Anion Gap 16.1 BUN 61.0 H Creatinine 2.90 H Est GFR ( Amer) 19 L Est GFR (Non-Af Amer) 16 L BUN/Creatinine Ratio 21.0 Glucose 154 H Lactate 0.9 Calcium 9.0 Magnesium 2.0 Total Bilirubin 0.3 AST 16 ALT 18 Alkaline Phosphatase 145 H Troponin I High Sens 10.5 Total Protein 7.0 Albumin 2.9 L Globulin 4.1 Albumin/Globulin Ratio 0.7 TSH 2.614 Urine Color Lt. yellow Urine Clarity Clear Urine pH 5.5 Ur Specific [place] 1.015 Urine Protein 30 A Urine Glucose (UA) Negative Urine Ketones Negative Urine Occult Blood Trace-i Urine Nitrite Negative Urine Bilirubin Negative Urine Urobilinogen 0.2 Ur Leukocyte Esterase Negative Urine RBC 0-2 Urine WBC 0-2 A Ur Squamous Epith Cells Rare Urine Crystals None seen Urine Bacteria None seen Urine Casts None seen Urine Mucus None seen Ur Culture Indicated? No Influenza Type A Ag Negative Influenza Type B Ag Negative SARS-CoV-2 Ag (CV2AG) Negative POC Glucose Discharge Plan Discharge Disposition: Home Health Service Condition: Good Discharge Medications: Continued atorvastatin 40 mg tablet 40 mg PO .once a day carvedilol 12.5 mg tablet 12.5 mg PO Q12H Humulin N NPH Insulin KwikPen 100 unit/mL (3 mL) insulin pen 15 unit subcut BID cholecalciferol (vitamin D3) 25 mcg (1,000 unit) capsule 25 mcg PO BEDTIME omega 1-chb-gxy-fish oil [Fish Oil] 300-1,000 mg capsule 1 cap PO DAILY Slow-Mag 71.5 mg tablet,delayed release (DR/EC) 71.5 mg PO DAILY Eliquis 2.5 mg tablet 2.5 mg PO BID Qty: 60 0RF ferrous sulfate 325 mg (65 mg iron) tablet 325 mg PO DAILY Qty: 30 0RF furosemide 40 mg tablet 40 mg PO DAILY sodium citrate-citric acid [Oracit] 490-640 mg/5 mL solution 5 ml PO DAILY Activity: resume usual activities as tolerated Diet: advance to your usual diet Print Language: Palestinian Patient Instructions: Dehydration (DC), Acute Abdominal Pain (DC), Dizziness (GEN), Nutrition Tips for Relief of Diarrhea (DC) 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 Mcfadden [phone]
--- NOTE | 2025-02-05 12:14 | CM.NOTE ---
Medicare Outpatient Observation Notice discussed with pt, pt verbalizes understanding and signs paper. Original given to pt and copy placed on pt's chart.
--- NOTE | 2025-02-05 12:15 | SWNOTE1 ---
Pt is discharging today and resuming [facility]. SW faxed over CRF, dc med list, and dc summary to [facility].
--- NOTE | 2025-02-06 14:45 | CM.DCFOLLOWU ---
1st attempt- no answer
--- NOTE | 2025-02-08 13:38 | CM.DCFOLLOWU ---
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 no questions, follow up Tuesday Is there anything else that you would like to discuss?no Questions/Comments/Concerns/Other:none
== END 2025-02-05 14:08 | disposition home health service (06) ==
LOC: ER 16:05 → MS 16:46
PROVIDERS: Family Medicine; Physician Assistant; Admitting Provider Family Medicine; Emergency Provider Student in an Organized Health Care Education/Training Program; PCP Family Medicine; Visit Provider Family Medicine
DX: E86.0 Dehydration (principal); R19.7 Diarrhea, unspecified; R53.1 Weakness; I13.0 Hypertensive heart and chronic kidney disease with heart failure and stage 1 through stage 4 chronic kidney disease, or unspecified chronic kidney disease; I50.32 Chronic diastolic (congestive) heart failure; N18.4 Chronic kidney disease, stage 4 (severe); N17.9 Acute kidney failure, unspecified; E11.22 Type 2 diabetes mellitus with diabetic chronic kidney disease; E11.65 Type 2 diabetes mellitus with hyperglycemia; Z79.4 Long term (current) use of insulin; C90.00 Multiple myeloma not having achieved remission; I48.0 Paroxysmal atrial fibrillation; R06.03 Acute respiratory distress; R10.31 Right lower quadrant pain; R79.89 Other specified abnormal findings of blood chemistry; E78.00 Pure hypercholesterolemia, unspecified; E83.42 Hypomagnesemia; R42 Dizziness and giddiness; Z90.49 Acquired absence of other specified parts of digestive tract; Z90.710 Acquired absence of both cervix and uterus
CPT/HCPCS: 36415; 51798; 71045; 80053; 81001; 82800; 82948; 83605; 83735; 84443; 84484; 85025; 85610; 87040; 87045; 87046; 87427; 87493; 87804; 87811; 93005; 94761; 96360; 96361; 97161; 97165; 97535; 99285; G0328; G0378; J1815

== ENCOUNTER 2025-02-11 11:29 | Emergency (ER) | payer MEDICARE, OTHER, SELFPAY ==
[2025-02-11] VITALS (16 sets, daily range): BP systolic 103–139; BP diastolic 48–87; PULSE 83–106; TEMP 36.6; O2SAT 96–99; BMI 29.7
--- NOTE | 2025-02-11 11:44 | ECG_ITS ---
[facility] Test Date: 2025-02-11 Pat Name: MARTHA GOMEZ Department: Room: - Gender: Female Imaging Clerk: : 1940 Requested By: [id number] Order Number: [id number] Reading MD: WILLARD OLSEN M.D. Measurements Intervals [place] Rate: 90 P: -48532 ND: -[id number] QRS: 55 QRSD: 104 T: 83 QT: 382 QTc: 429 Interpretive Statements [address] abnormality abnormal ECG Compared to ECG 02/04/2025 13:49:46 Atrial flutter has replaced atrial fibrillation Electronically Signed On 02-11-2025 20:26:54 EDT by WILLARD OLSEN M.D.
--- NOTE | 2025-02-11 11:45 | ED_ITS ---
HPI HPI - General Adult General Chief complaint: Recheck/Abnormal Lab/Rx Stated complaint: LOW BLOOD PRESSURE SENT BY PCP Time Seen by Provider: 02/11/25 11:31 Source: patient Mode of arrival: Wheelchair History of Present Illness HPI narrative: 84-year-old female presented for low blood pressure. She was sent here from her PCPs office because her blood pressure was reportedly in the 80 systolic range. The patient states she does not have any unusual symptoms. She is always tired but that is no worse than typical and she is always weak and that is no worse than typical. No chest pain. She was recently in this hospital for dehydration and was discharged in 4 to 5 days ago started a new medication from her eeg technologist but she does not know the name. No fever or vomiting. Related Data Home Medications ?Medication ?Instructions ?Recorded ?Confirmed atorvastatin 40 mg tablet 40 mg PO .once a day 04/19/23 02/11/25 carvedilol 12.5 mg tablet 12.5 mg PO Q12H 04/19/23 02/11/25 cholecalciferol (vitamin D3) 25 25 mcg PO BEDTIME 06/19/23 02/11/25 mcg (1,000 unit) capsule omega 7-byy-ynr-fish oil 300 1 cap PO DAILY 06/19/23 02/11/25 mg-1,000 mg capsule (Fish Oil) magnesium chloride 71.5 mg 71.5 mg PO DAILY 10/10/24 02/11/25 (magnesium chloride) tablet,delayed release (Slow-Mag) furosemide 40 mg tablet 40 mg PO DAILY 02/04/25 02/11/25 sodium citrate-citric acid 490 5 ml PO DAILY 02/05/25 02/11/25 mg-640 mg/5 mL oral solution (Oracit) flecainide 50 mg tablet 50 mg PO Q12H 02/11/25 02/11/25 Previous Rx's ?Medication ?Instructions ?Recorded apixaban 2.5 mg tablet (Eliquis) 2.5 mg PO BID #60 tabs 10/14/24 ferrous sulfate 325 mg (65 mg 325 mg PO DAILY #30 tabs 10/14/24 iron) tablet Allergies Allergy/AdvReac Type Severity Reaction Status Date / Time lenalidomide (From Revlimid) Allergy Rash Verified 02/04/25 15:57 pregabalin (From Lyrica) Allergy Rash Verified 02/04/25 15:57 oxybutynin AdvReac Mild Rash Verified 02/04/25 15:57 Opioid HPI Opioid Management Most Recent Opioid Data: Last Pain Scale 2 02/05/25 13:37 02/05/25 Last Pain Intensity 2 02/05/25 13:37 02/05/25 Last Pain Assessment 02/05/25 14:07 Last ORT Total Score 0 02/04/25 16:55 02/04/25 Last ORT Risk Category Low Risk 02/04/25 16:55 02/04/25 Review of Systems ROS Narrative A ten point review of systems is negative except as noted above. [facility] Medical History (Updated 02/11/25 @ 13:28 by Gary Frausto MD) Chronic heart failure with preserved ejection fraction (HFpEF) ?I50.32 - Chronic diastolic (congestive) heart failure (ICD-10) Paroxysmal atrial fibrillation ?I48.0 - Paroxysmal atrial fibrillation (ICD-10) CKD (chronic kidney disease) stage 4, GFR 15-29 ml/min ?N18.4 - Chronic kidney disease, stage 4 (severe) (ICD-10) Type 2 diabetes mellitus with hyperglycemia ?E11.65 - Type 2 diabetes mellitus with hyperglycemia (ICD-10) Multiple myeloma ?C90.00 - Multiple myeloma not having achieved remission (ICD-10) Hypertension ?I10 - Essential (primary) hypertension (ICD-10) Anterior epistaxis ?R04.0 - Epistaxis (ICD-10) Upper respiratory infection ?J06.9 - Acute upper respiratory infection, unspecified (ICD-10) Acute bronchospasm ?J98.01 - Acute bronchospasm (ICD-10) H/O epistaxis ?Z87.898 - Personal history of other specified conditions (ICD-10) Encounter for removal of nasal pack ?Z48.00 - Encounter for change or removal of nonsurgical wound dressing (ICD- 10) Upper respiratory tract infection due to COVID-19 virus ?U07.1 - COVID-19 (ICD-10) ?J06.9 - Acute upper respiratory infection, unspecified (ICD-10) UTI (urinary tract infection) ?N39.0 - Urinary tract infection, site not specified (ICD-10) Acute on chronic diastolic (congestive) heart failure ?I50.33 - Acute on chronic diastolic (congestive) heart failure (ICD-10) Viral URI with cough ?J06.9 - Acute upper respiratory infection, unspecified (ICD-10) Congestive heart failure ?I50.9 - Heart failure, unspecified (ICD-10) A-fib ?I48.91 - Unspecified atrial fibrillation (ICD-10) CHF (congestive heart failure) ?I50.9 - Heart failure, unspecified (ICD-10) Gastrointestinal hemorrhage with melena ?K92.1 - Melena (ICD-10) Upper gastrointestinal bleed ?K92.2 - Gastrointestinal hemorrhage, unspecified (ICD-10) Syncope and collapse ?R55 - Syncope and collapse (ICD-10) GI bleeding ?K92.2 - Gastrointestinal hemorrhage, unspecified (ICD-10) HLD (hyperlipidemia) ?E78.5 - Hyperlipidemia, unspecified (ICD-10) H/O: CVA (cerebrovascular accident) ?Z86.73 - Personal history of transient ischemic attack (TIA), and cerebral infarction without residual deficits (ICD-10) Type 2 diabetes mellitus ?E11.9 - Type 2 diabetes mellitus without complications (ICD-10) Cerebrovascular disease ?I67.9 - Cerebrovascular disease, unspecified (ICD-10) Hypertension ?I10 - Essential (primary) hypertension (ICD-10) Cataract ?H26.9 - Unspecified cataract (ICD-10) Stroke ?I63.9 - Cerebral infarction, unspecified (ICD-10) Osteoarthritis of left knee ?M17.12 - Unilateral primary osteoarthritis, left knee (ICD-10) Surgical History Hx of cholecystectomy ?Z90.49 - Acquired absence of other specified parts of digestive tract (ICD- 10) History of hysterectomy ?Z90.710 - Acquired absence of both cervix and uterus (ICD-10) Family History Mother Family history of CHF (congestive heart failure) Family history of diabetes mellitus Family history of stroke Sister Family history of CHF (congestive heart failure) Family history of diabetes mellitus Family history of hypertension Grandmother Family history of cancer Family history of diabetes mellitus Brother No problems noted. Father No problems noted. Social History (Updated 02/04/25 @ 17:10 by Marisa Berman RN) Within the past year, how often did you have a drink containing alcohol: never Within the past year, how often did you have six or more drinks on one occasion: never Score interpretation: A score less than 3 is consistent with normal alcohol consumption. 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 General: The patient appears well and in no apparent distress. Patient is resting comfortably on cart. Skin: Warm, dry, no pallor noted. There is no rash noted. Head: Normocephalic, atraumatic Eye: Normal conjunctiva, no drainage Ears, Nose, Mouth, and Throat: oral mucosa is moist. Nares patent. Cardiovascular: Regular Rate and Rhythm Respiratory: Patient is in no distress, no accessory muscle use, lungs are clear to auscultation, no wheezing, rales or rhonchi Back: non-tender GI: Soft and nontender Musculoskeletal: The patient has no evidence of calf tenderness, no pitting edema, symmetrical pulses noted bilaterally Neurological: A&O, normal speech Psychiatric: Cooperative Constitutional Vital Signs, click to edit/add: Last Vital Signs Temp 98 F 02/11/25 11:38 Pulse 101 H 02/11/25 12:53 Resp 17 02/11/25 12:53 BP 127/76 02/11/25 12:31 Pulse Ox 98 02/11/25 12:40 O2 Del Method Room Air 02/11/25 11:38 Course Vital Signs Vital signs: Vital Signs Blood Pressure 105/48 L 02/11/25 11:37 Pulse Oximetry 99 02/11/25 11:37 Temperature 98 F 02/11/25 11:38 Pulse Rate 101 H 02/11/25 12:53 Respiratory Rate 17 02/11/25 12:53 Blood Pressure 127/76 02/11/25 12:31 Pulse Oximetry 98 02/11/25 12:40 Oxygen Delivery Method Room Air 02/11/25 11:38 Medical Decision Making MDM Narrative Medical decision making narrative: Her workup including troponin is negative. BUN and creatinine are at her baseline. Her blood pressure is not found to be low and her most recent blood pressure is 139/87. She is asymptomatic and is discharged home. Treatment diagnosis and follow-up were discussed with the patient. Differential Diagnosis Differential Diagnosis: Hypotension, UTI, dehydration Lab Data Lab results reviewed: Yes I reviewed the patient's lab results Labs: Lab Results 02/11/25 Range/Units 11:50 WBC 9.7 (4.0-11.0) 10^3/uL RBC 4.18 L (4.20-5.40) 10^6/uL Hgb 12.9 (12.0-16.0) g/dL Hct 38.6 (36.0-48.0) % MCV 92.3 (81.0-99.0) fL MCH 30.9 (26.7-34.0) pg MCHC 33.4 (29.9-35.2) g/dL RDW 13.2 (11.0-15.0) % Plt Count 220 (150-450) 10^3/uL MPV 11.3 (9.5-13.5) fL Neut % (Auto) 70.7 (43.0-75.0) % Lymph % (Auto) 21.9 (20.5-60.0) % [place] % (Auto) 5.0 (1.7-12.0) % Eos % (Auto) 0.8 L (0.9-7.0) % Baso % (Auto) 0.2 (0.2-2.0) % Neut # (Auto) 6.8 H (1.4-6.5) 10^3/uL Lymph # (Auto) 2.1 (1.2-3.8) 10^3/uL [place] # (Auto) 0.5 (0.3-0.8) 10^3/uL Eos # (Auto) 0.1 (0.0-0.7) 10^3/uL Baso # (Auto) 0.0 (0.0-0.1) 10^3/uL Abs Immat Gran (auto) 0.14 H (0.00-0.03) 10^3/uL Imm/Tot Granulo (auto) 1.4 H (0.0-0.5) % Sodium 139 (136-145) mmol/L Potassium 4.4 (3.5-5.1) mmol/L Chloride 108 H (98-107) mmol/L Carbon Dioxide 19.1 L (21.0-32.0) mmol/L Anion Gap 16.3 BUN 37.0 H (7.0-18.0) mg/dL Creatinine 2.55 H (0.55-1.02) mg/dL Est GFR ( Amer) 22 L (>=60 mL/min/1.73m^2) Est GFR (Non-Af Amer) 18 L (>=60 mL/min/1.73m^2) BUN/Creatinine Ratio 14.5 Glucose 106 (74-106) mg/dL Calcium 8.7 (8.5-10.1) mg/dL Troponin I High Sens 8.0 (4.0-51.3) pg/mL Urine Color Lt. yellow (YELLOW) Urine Clarity Clear (CLEAR) Urine pH 6.0 (5.0-9.0) Ur Specific [place] 1.025 (1.005-1.025) Urine Protein Trace (NEG/TRACE) mg/dL Urine Glucose (UA) Negative (NEGATIVE) mg/dL Urine Ketones Negative (NEGATIVE) mg/dL Urine Occult Blood Negative (NEGATIVE) Urine Nitrite Negative (NEGATIVE) Urine Bilirubin Negative (NEGATIVE) Urine Urobilinogen 0.2 (0.2-1.0) EU/dL Ur Leukocyte Esterase Trace A (NEGATIVE) Urine RBC 0-2 (0-2) #/HPF Urine WBC 2-5 A (NONE SEEN) #/HPF Ur Squamous Epith Cells Few A (NONE/RARE) #/LPF Urine Crystals None seen (None Seen) #/HPF Urine Bacteria Trace A (NONE SEEN) #/HPF Urine Casts None seen (NONE SEEN) #/LPF Urine Mucus None seen (NONE SEEN) ECG Data Attestation: I personally reviewed and interpreted this ECG as follows: (EKG on my interpretation shows atrial flutter) Discharge Plan Discharge Chief Complaint: Recheck/Abnormal Lab/Rx Clinical Impression: No problem, feared complaint unfounded Patient Disposition: Home, Self-Care Time of Disposition Decision: 13:28 Condition: Good Mode of Transportation: Private Vehicle Prescriptions / Home Meds: No Action atorvastatin 40 mg tablet 40 mg PO .once a day carvedilol 12.5 mg tablet 12.5 mg PO Q12H cholecalciferol (vitamin D3) 25 mcg (1,000 unit) capsule 25 mcg PO BEDTIME omega 4-csn-eoo-fish oil [Fish Oil] 300-1,000 mg capsule 1 cap PO DAILY flecainide 50 mg tablet 50 mg PO Q12H Slow-Mag 71.5 mg tablet,delayed release (DR/EC) 71.5 mg PO DAILY Eliquis 2.5 mg tablet 2.5 mg PO BID Qty: 60 0RF ferrous sulfate 325 mg (65 mg iron) tablet 325 mg PO DAILY Qty: 30 0RF furosemide 40 mg tablet 40 mg PO DAILY sodium citrate-citric acid [Oracit] 490-640 mg/5 mL solution 5 ml PO DAILY Print Language: Citizen Of [place] Instructions: Hypotension (ED) Referrals: Karie Mcfadden MD [Primary Care Provider] - 1 week
[2025-02-11 11:59] LABS: Basophils Percent Auto 0.2 % (0.2-2.0); Eosinophils Absolute Auto 0.1 10^3/uL (0.0-0.7); Eosinophils Percent Auto 0.8 % (0.9-7.0); Hematocrit 38.6 % (36.0-48.0); Hemoglobin 12.9 g/dL (12.0-16.0); Immature Granulocytes Abs Auto 0.14 10^3/uL (0.00-0.03); Immature Granulocytes Pct Auto 1.4 % (0.0-0.5); Lymphocytes Absolute Auto 2.1 10^3/uL (1.2-3.8); Lymphocytes Percent Auto 21.9 % (20.5-60.0); Mean Corpuscular HGB Conc 33.4 g/dL (29.9-35.2); Mean Corpuscular Hemoglobin 30.9 pg (26.7-34.0); Mean Corpuscular Volume 92.3 fL (81.0-99.0); Mean Platelet Volume 11.3 fL (9.5-13.5); Monocytes Absolute Auto 0.5 10^3/uL (0.3-0.8); Neutrophils Absolute Auto 6.8 10^3/uL (1.4-6.5); Neutrophils Percent Auto 70.7 % (43.0-75.0); Platelet Count 220 10^3/uL (150-450); Red Blood Count 4.18 10^6/uL (4.20-5.40); Red Cell Distribution Width 13.2 % (11.0-15.0); White Blood Count 9.7 10^3/uL (4.0-11.0)
--- NOTE | 2025-02-11 12:09 | PC.NURSE ---
pt at pcp office for follow up for recent hospital admission for dehydration. pt states BP was 80/50 and her pcp instructed her to come to the er to be seen. pt states she feels fine. pt states she had a stroke several years ago and has chronic dizziness with positional changes but dizziness is not worse than normal.
[2025-02-11 12:17] LABS: Anion Gap 16.3; BUN Creatinine Ratio 14.5; Calcium 8.7 mg/dL (8.5-10.1); Carbon Dioxide 19.1 mmol/L (21.0-32.0); Chloride 108 mmol/L (98-107); Estimated GFR (African America 22 (>=60 mL/min/1.73m^2); Estimated GFR (Non-African Ame 18 (>=60 mL/min/1.73m^2); Glucose 106 mg/dL (74-106); Potassium 4.4 mmol/L (3.5-5.1); Sodium 139 mmol/L (136-145)
[2025-02-11 13:06] LABS: Bilirubin Urine NEGATIVE (NEGATIVE); Blood Urine NEGATIVE (NEGATIVE); Clarity Urine CLEAR (CLEAR); Color Urine LT. YELLOW (YELLOW); Glucose Urine UA NEGATIVE (NEGATIVE); Ketones Urine NEGATIVE (NEGATIVE); Leukocyte Esterase Urine TRACE (NEGATIVE); Nitrite Urine NEGATIVE (NEGATIVE); Protein Urine TRACE mg/dL (NEG/TRACE); Specific Gravity Urine 1.025 (1.005-1.025); Urobilinogen Urine 0.2 EU/dL (0.2-1.0)
[2025-02-11 13:19] LABS: Bacteria Urine TRACE #/HPF (NONE SEEN); RBC Urine 0-2 #/HPF (0-2); Squamous Epithelial Cell Urine FEW #/LPF (NONE/RARE)
[2025-02-11 13:20] LABS: Cast Seen? NONE SEEN #/LPF (NONE SEEN); Crystals Seen? None Seen #/HPF (None Seen); Mucus Urine NONE SEEN (NONE SEEN)
== END 2025-02-11 13:49 | disposition home or self-care (01) ==
PROVIDERS: Emergency Provider Emergency Medicine; PCP Family Medicine
DX: Z03.89 Encounter for observation for other suspected diseases and conditions ruled out (principal); Z90.49 Acquired absence of other specified parts of digestive tract; Z90.710 Acquired absence of both cervix and uterus
CPT/HCPCS: 36415; 80048; 81001; 84484; 85025; 93005; 99284

== ENCOUNTER 2025-03-22 13:38 | Outpatient (REF) | payer MEDICARE, OTHER, SELFPAY ==
[2025-03-22 14:20] LABS: Hematocrit 35.7 % (36.0-48.0); Hemoglobin 11.6 g/dL (12.0-16.0); Mean Corpuscular HGB Conc 32.5 g/dL (29.9-35.2); Mean Corpuscular Hemoglobin 30.6 pg (26.7-34.0); Mean Corpuscular Volume 94.2 fL (81.0-99.0); Mean Platelet Volume 11.6 fL (9.5-13.5); Platelet Count 210 10^3/uL (150-450); Red Blood Count 3.79 10^6/uL (4.20-5.40); Red Cell Distribution Width 14.3 % (11.0-15.0); White Blood Count 8.4 10^3/uL (4.0-11.0)
[2025-03-22 14:32] LABS: Albumin Level 2.8 g/dL (3.4-5.0); Anion Gap 13.2; BUN Creatinine Ratio 13.7; Calcium 7.9 mg/dL (8.5-10.1); Carbon Dioxide 22.3 mmol/L (21.0-32.0); Chloride 107 mmol/L (98-107); Estimated GFR (African America 21 (>=60 mL/min/1.73m^2); Estimated GFR (Non-African Ame 17 (>=60 mL/min/1.73m^2); Glucose 175 mg/dL (74-106); Magnesium 1.8 mg/dL (1.8-2.4); Phosphorus 3.3 mg/dL (2.6-4.7); Potassium 4.5 mmol/L (3.5-5.1); Sodium 138 mmol/L (136-145); Uric Acid 5.6 mg/dL (2.6-6.0)
[2025-03-22 15:32] LABS: Bilirubin Urine NEGATIVE (NEGATIVE); Blood Urine NEGATIVE (NEGATIVE); Clarity Urine CLEAR (CLEAR); Color Urine LT. YELLOW (YELLOW); Glucose Urine UA NEGATIVE (NEGATIVE); Ketones Urine NEGATIVE (NEGATIVE); Leukocyte Esterase Urine NEGATIVE (NEGATIVE); Nitrite Urine NEGATIVE (NEGATIVE); Protein Urine TRACE mg/dL (NEG/TRACE); Urobilinogen Urine 0.2 EU/dL (0.2-1.0)
[2025-03-22 15:46] LABS: Bacteria Urine TRACE #/HPF (NONE SEEN); Cast Seen? NONE SEEN #/LPF (NONE SEEN); Crystals Seen? None Seen #/HPF (None Seen); Mucus Urine NONE SEEN (NONE SEEN); RBC Urine NONE SEEN #/HPF (0-2); Squamous Epithelial Cell Urine FEW #/LPF (NONE/RARE); WBC Urine 0-2 #/HPF (NONE SEEN)
[2025-03-22 15:52] LABS: Protein Creatinine Ratio Urine 0.41; Total Protein Urine Random 53.8 mg/dL (<=11.9)
[2025-03-24 11:07] LABS: PTH, Intact 65 pg/mL (15-65)
== END 2025-03-22 13:39 | disposition home or self-care (01) ==
LOC: LAB 13:38
PROVIDERS: PCP Family Medicine; Visit Provider Internal Medicine
DX: E55.9 Vitamin D deficiency, unspecified (principal); N25.81 Secondary hyperparathyroidism of renal origin; E11.22 Type 2 diabetes mellitus with diabetic chronic kidney disease; I12.9 Hypertensive chronic kidney disease with stage 1 through stage 4 chronic kidney disease, or unspecified chronic kidney disease; N18.4 Chronic kidney disease, stage 4 (severe); C90.00 Multiple myeloma not having achieved remission
CPT/HCPCS: 36415; 80069; 81001; 82306; 82570; 83735; 83970; 84156; 84550; 85027

== ENCOUNTER 2025-07-08 16:10 | Emergency (ER) | payer MEDICARE, OTHER, SELFPAY ==
[2025-07-08 16:33] VITALS: BP 130/87; PULSE 62; O2SAT 95; BMI 29.5
[2025-07-08 17:16] VITALS: PULSE 70
--- NOTE | 2025-07-08 17:33 | ECG_ITS ---
[facility] Test Date: 2025-07-08 Pat Name: MARTHA GOMEZ Department: Room: - Gender: Female Manager Export: : 1940 Requested By: [id number] Order Number: [id number] Reading MD: MARY GEORGE Measurements Intervals [place] [employer] Rate: 58 P: 90 [place]: 274 QRS: 55 QRSD: 110 T: 79 QT: 456 QTc: 452 Interpretive Statements 1100 Sinus rhythm 2231 First degree AV block 8304 Long QTc interval 9150 abnormal ECG Compared to ECG 02/11/2025 11:39:49 First degree AV block now present Atrial flutter no longer present ST (T wave) deviation no longer present Electronically Signed On 07-10-2025 15:53:44 EDT by MARY GEORGE
[2025-07-08 18:27] LABS: Hematocrit 39.5 % (36.0-48.0); Hemoglobin 12.8 g/dL (12.0-16.0); Immature Granulocytes Abs Auto 0.02 10^3/uL (0.00-0.03); Immature Granulocytes Pct Auto 0.3 % (0.0-0.5); Lymphocytes Absolute Auto 2.2 10^3/uL (1.2-3.8); Mean Corpuscular HGB Conc 32.4 g/dL (29.9-35.2); Mean Corpuscular Hemoglobin 31.2 pg (26.7-34.0); Mean Corpuscular Volume 96.3 fL (81.0-99.0); Platelet Count 179 10^3/uL (150-450); Red Blood Count 4.10 10^6/uL (4.20-5.40); White Blood Count 7.6 10^3/uL (4.0-11.0)
[2025-07-08 18:48] LABS: Alanine Aminotransferase 16 U/L (14-59); Albumin Globulin Ratio 0.8; Albumin Level 3.1 g/dL (3.4-5.0); Alkaline Phosphatase 128 U/L (46-116); Anion Gap 12.4; Aspartate Amino Transferase 11 U/L (15-37); Blood Urea Nitrogen 40.0 mg/dL (7.0-18.0); Calcium 8.6 mg/dL (8.5-10.1); Carbon Dioxide 24.4 mmol/L (21.0-32.0); Chloride 109 mmol/L (98-107); Estimated GFR (African America 21 (>=60 mL/min/1.73m^2); Estimated GFR (Non-African Ame 17 (>=60 mL/min/1.73m^2); Globulin 4.0 g/dL; Glucose 110 mg/dL (74-106); Potassium 4.8 mmol/L (3.5-5.1); Sodium 141 mmol/L (136-145); Total Protein 7.1 g/dL (6.4-8.2)
[2025-07-08 18:51] LABS: Magnesium 2.1 mg/dL (1.8-2.4)
[2025-07-08 18:54] LABS: Glucose Urine UA NEGATIVE (NEGATIVE)
[2025-07-08 19:02] LABS: Cast Seen? NONE SEEN #/LPF (NONE SEEN); Crystals Seen? None Seen #/HPF (None Seen); Urine Culture Indicated NO
--- NOTE | 2025-07-08 19:21 | ED.GENADUL1 ---
Documented by User: Viry Torre, 07/08/25 19:31 HPI HPI - General Adult General Chief complaint: Dizziness Stated complaint: DIZZY Time Seen by Provider: 07/08/25 17:17 Source: patient Mode of arrival: walk-in Limitations: no limitations History of Present Illness HPI narrative: I took oover the patient from Dr. Arroyo at 19:00. He explained to me that the 85-year-old female presented to the emergency department for weakness. She does have a history of multiple TIAs without any residual deficits, chronic kidney disease, high blood pressure, and high cholesterol. He states today she has no neurologic deficits. Laboratories and EKGs were unremarkable. Her symptoms have been for 2 days. She has been having some balance issues as well. His workup was unremarkable although her urine analysis had not returned. 19:22 urinalysis returns and the patient has no evidence of a urinary tract infection. I go back in to speak to the patient and her daughter. As they understand from the nurse that signed over this evening when the patient got up to go to the restroom, she was a little bit unsteady on her feet and dizzy. When I go in the room the daughter states within the last 10 minutes the patient seemed to have more dizzy symptoms. I did tell them that the urine was negative. I offered to provide meclizine to the patient and then to watch and see if she was able to ambulate with a better upright and stable gait. The patient was also offered an opportunity to be observed in the hospital. Patient is refusing stating that she wants to go home. In fact, she is willing to try the meclizine but she is not willing to stay to see if there is any measurable improvement in her symptoms. Meclizine is cleared in the liver and will be safe for the patient who has chronic kidney disease. Next, patient states that for the last 6 months her left upper extremity has been more cold intermittently. She is also noticed some discoloration. She has never mentioned it to her primary care physician and wants to know what I can do about her presumed circulatory dysfunction and problem. I did respectfully tell her that she would likely have to see a vascular surgeon and that there could be a multitude of reasons why the arm is not getting good circulation. When I assessed that it is cool but it is not discolored and there is brisk capillary refill with +2 radial and ulnar pulses. At this time there is no reason to do any additional studies and she states that it is intermittent. At this time referral to a vascular surgeon is important and she can get that referral from her primary care physician. The patient's extremity is not painful. Discharge diagnosis: 1. Weakness 2. Dizziness 3. Cold left hand Condition: Stable Disposition: Discharge home with daughter Prescription: Meclizine Related Data Home Medications ?Medication ?Instructions ?Recorded ?Confirmed atorvastatin 40 mg tablet 40 mg PO DAILY 04/19/23 07/08/25 carvedilol 12.5 mg tablet 6.25 mg PO Q12H 04/19/23 07/08/25 cholecalciferol (vitamin D3) 25 25 mcg PO BEDTIME 06/19/23 07/08/25 mcg (1,000 unit) capsule omega 9-evi-gil-fish oil 300 1 cap PO DAILY 06/19/23 07/08/25 mg-1,000 mg capsule (Fish Oil) magnesium chloride 71.5 mg 71.5 mg PO DAILY 10/10/24 07/08/25 (magnesium chloride) tablet,delayed release (Slow-Mag) furosemide 40 mg tablet 40 mg PO DAILY 02/04/25 02/11/25 sodium citrate-citric acid 490 5 ml PO DAILY 02/05/25 02/11/25 mg-640 mg/5 mL oral solution (Oracit) flecainide 50 mg tablet 50 mg PO Q12H 02/11/25 07/08/25 sodium bicarbonate 650 mg tablet mg 07/08/25 Previous Rx's ?Medication ?Instructions ?Recorded apixaban 2.5 mg tablet (Eliquis) 2.5 mg PO BID #60 tabs 10/14/24 ferrous sulfate 325 mg (65 mg 325 mg PO DAILY #30 tabs 10/14/24 iron) tablet meclizine 25 mg tablet 25 mg PO TID PRN dizziness #14 tabs 07/08/25 Allergies Allergy/AdvReac Type Severity Reaction Status Date / Time lenalidomide (From Revlimid) Allergy Rash Verified 02/04/25 15:57 pregabalin (From Lyrica) Allergy Rash Verified 02/04/25 15:57 oxybutynin AdvReac Mild Rash Verified 02/04/25 15:57 Opioid HPI Opioid Management Most Recent Opioid Data: Last Pain Scale 2 02/05/25, 13:37 Last Pain Intensity 2 02/05/25, 13:37 Last ORT Total Score 0 02/04/25, 16:55 Last ORT Risk Category Low Risk 02/04/25, 16:55 PFSH [facility] Medical History (Updated 07/08/25 @ 19:27 by Viry Torre, ) Chronic heart failure with preserved ejection fraction (HFpEF) ?I50.32 - Chronic diastolic (congestive) heart failure (ICD-10) Paroxysmal atrial fibrillation ?I48.0 - Paroxysmal atrial fibrillation (ICD-10) CKD (chronic kidney disease) stage 4, GFR 15-29 ml/min ?N18.4 - Chronic kidney disease, stage 4 (severe) (ICD-10) Type 2 diabetes mellitus with hyperglycemia ?E11.65 - Type 2 diabetes mellitus with hyperglycemia (ICD-10) Multiple myeloma ?C90.00 - Multiple myeloma not having achieved remission (ICD-10) Hypertension ?I10 - Essential (primary) hypertension (ICD-10) Anterior epistaxis ?R04.0 - Epistaxis (ICD-10) Upper respiratory infection ?J06.9 - Acute upper respiratory infection, unspecified (ICD-10) Acute bronchospasm ?J98.01 - Acute bronchospasm (ICD-10) H/O epistaxis ?Z87.898 - Personal history of other specified conditions (ICD-10) Encounter for removal of nasal pack ?Z48.00 - Encounter for change or removal of nonsurgical wound dressing (ICD-10) Upper respiratory tract infection due to COVID-19 virus ?U07.1 - COVID-19 (ICD-10) ?J06.9 - Acute upper respiratory infection, unspecified (ICD-10) UTI (urinary tract infection) ?N39.0 - Urinary tract infection, site not specified (ICD-10) Acute on chronic diastolic (congestive) heart failure ?I50.33 - Acute on chronic diastolic (congestive) heart failure (ICD-10) Viral URI with cough ?J06.9 - Acute upper respiratory infection, unspecified (ICD-10) Congestive heart failure ?I50.9 - Heart failure, unspecified (ICD-10) A-fib ?I48.91 - Unspecified atrial fibrillation (ICD-10) CHF (congestive heart failure) ?I50.9 - Heart failure, unspecified (ICD-10) Gastrointestinal hemorrhage with melena ?K92.1 - Melena (ICD-10) Upper gastrointestinal bleed ?K92.2 - Gastrointestinal hemorrhage, unspecified (ICD-10) Syncope and collapse ?R55 - Syncope and collapse (ICD-10) GI bleeding ?K92.2 - Gastrointestinal hemorrhage, unspecified (ICD-10) HLD (hyperlipidemia) ?E78.5 - Hyperlipidemia, unspecified (ICD-10) H/O: CVA (cerebrovascular accident) ?Z86.73 - Personal history of transient ischemic attack (TIA), and cerebral infarction without residual deficits (ICD-10) Type 2 diabetes mellitus ?E11.9 - Type 2 diabetes mellitus without complications (ICD-10) Cerebrovascular disease ?I67.9 - Cerebrovascular disease, unspecified (ICD-10) Hypertension ?I10 - Essential (primary) hypertension (ICD-10) Cataract ?H26.9 - Unspecified cataract (ICD-10) Stroke ?I63.9 - Cerebral infarction, unspecified (ICD-10) Osteoarthritis of left knee ?M17.12 - Unilateral primary osteoarthritis, left knee (ICD-10) Surgical History Hx of cholecystectomy ?Z90.49 - Acquired absence of other specified parts of digestive tract (ICD-10) History of hysterectomy ?Z90.710 - Acquired absence of both cervix and uterus (ICD-10) Family History Mother Family history of CHF (congestive heart failure) Family history of diabetes mellitus Family history of stroke Sister Family history of CHF (congestive heart failure) Family history of diabetes mellitus Family history of hypertension Grandmother Family history of cancer Family history of diabetes mellitus Brother No problems noted. Father No problems noted. Social History (Updated 02/04/25 @ 17:10 by Marisa Berman RN) Within the past year, how often did you have a drink containing alcohol: never Within the past year, how often did you have six or more drinks on one occasion: never Score interpretation: A score less than 3 is consistent with normal alcohol consumption. 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 Highest level of school completed/degree received: some college, no degree Do you want help with school or training: No Are you now , , , , never or living with a partner: Little interest or pleasure in doing things: not at all Feeling down, depressed, or hopeless: not at all Feel stressed/tense/nervous/anxious/difficulty sleeping: not at all Do you think of yourself as: straight/heterosexual Gender Identity: female Exam Constitutional Vital Signs, click to edit/add: Last Vital Signs Pulse 62 07/08/25 16:33 Resp 16 07/08/25 16:33 BP 130/87 07/08/25 16:33 Pulse Ox 95 07/08/25 16:33 O2 Del Method Room Air 07/08/25 16:33 Course Vital Signs Vital signs: Vital Signs Pulse Rate 62 07/08/25 16:33 Respiratory Rate 16 07/08/25 16:33 Blood Pressure 130/87 07/08/25 16:33 Pulse Oximetry 95 07/08/25 16:33 Oxygen Delivery Method Room Air 07/08/25 16:33 Pulse Rate 62 07/08/25 16:33 Respiratory Rate 16 07/08/25 16:33 Blood Pressure 130/87 07/08/25 16:33 Pulse Oximetry 95 07/08/25 16:33 Oxygen Delivery Method Room Air 07/08/25 16:33 Medical Decision Making Lab Data Labs: Lab Results 07/08/25 07/08/25 Range/Units 17:54 18:48 WBC 7.6 (4.0-11.0) 10^3/uL RBC 4.10 L (4.20-5.40) 10^6/uL Hgb 12.8 (12.0-16.0) g/dL Hct 39.5 (36.0-48.0) % MCV 96.3 (81.0-99.0) fL MCH 31.2 (26.7-34.0) pg MCHC 32.4 (29.9-35.2) g/dL RDW 12.8 (11.0-15.0) % Plt Count 179 (150-450) 10^3/uL MPV 11.3 (9.5-13.5) fL Neut % (Auto) 59.5 (43.0-75.0) % Lymph % (Auto) 29.5 (20.5-60.0) % Gregory % (Auto) 8.7 (1.7-12.0) % Eos % (Auto) 1.6 (0.9-7.0) % Baso % (Auto) 0.4 (0.2-2.0) % Neut # (Auto) 4.5 (1.4-6.5) 10^3/uL Lymph # (Auto) 2.2 (1.2-3.8) 10^3/uL Gregory # (Auto) 0.7 (0.3-0.8) 10^3/uL Eos # (Auto) 0.1 (0.0-0.7) 10^3/uL Baso # (Auto) 0.0 (0.0-0.1) 10^3/uL Abs Immat Gran (auto) 0.02 (0.00-0.03) 10^3/uL Imm/Tot Granulo (auto) 0.3 (0.0-0.5) % Sodium 141 (136-145) mmol/L Potassium 4.8 (3.5-5.1) mmol/L Chloride 109 H (98-107) mmol/L Carbon Dioxide 24.4 (21.0-32.0) mmol/L Anion Gap 12.4 BUN 40.0 H (7.0-18.0) mg/dL Creatinine 2.62 H (0.55-1.02) mg/dL Est GFR ( Amer) 21 L (>=60 mL/min/1.73m^2) Est GFR (Non-Af Amer) 17 L (>=60 mL/min/1.73m^2) BUN/Creatinine Ratio 15.3 Glucose 110 H (74-106) mg/dL Calcium 8.6 (8.5-10.1) mg/dL Magnesium 2.1 (1.8-2.4) mg/dL Total Bilirubin 0.3 (0.2-1.0) mg/dL AST 11 L (15-37) U/L ALT 16 (14-59) U/L Alkaline Phosphatase 128 H (46-116) U/L Troponin I High Sens 7.2 (4.0-51.3) pg/mL Total Protein 7.1 (6.4-8.2) g/dL Albumin 3.1 L (3.4-5.0) g/dL Globulin 4.0 g/dL Albumin/Globulin Ratio 0.8 Urine Color Lt. yellow (YELLOW) Urine Clarity Clear (CLEAR) Urine pH 6.0 (5.0-9.0) Ur Specific [place] 1.010 (1.005-1.025) Urine Protein Trace (NEG/TRACE) mg/dL Urine Glucose (UA) Negative (NEGATIVE) mg/dL Urine Ketones Negative (NEGATIVE) mg/dL Urine Occult Blood Negative (NEGATIVE) Urine Nitrite Negative (NEGATIVE) Urine Bilirubin Negative (NEGATIVE) Urine Urobilinogen 0.2 (0.2-1.0) EU/dL Ur Leukocyte Esterase Negative (NEGATIVE) Urine RBC None seen (0-2) #/HPF Urine WBC 0-2 A (NONE SEEN) #/HPF Ur Squamous Epith Cells Rare (NONE/RARE) #/LPF Urine Crystals None seen (None Seen) #/HPF Urine Bacteria None seen (NONE SEEN) #/HPF Urine Casts None seen (NONE SEEN) #/LPF Urine Mucus None seen (NONE SEEN) Ur Culture Indicated? No Discharge Plan Discharge Chief Complaint: Dizziness Clinical Impression: Dizziness, Weakness, Cold extremity without peripheral vascular disease Patient Disposition: Home, Self-Care Time of Disposition Decision: 19:27 Condition: Good Mode of Transportation: Private Vehicle Prescriptions / Home Meds: New meclizine 25 mg tablet 25 mg PO TID PRN (Reason: dizziness) Qty: 14 0RF No Action atorvastatin 40 mg tablet 40 mg PO DAILY carvedilol 12.5 mg tablet 6.25 mg PO Q12H cholecalciferol (vitamin D3) 25 mcg (1,000 unit) capsule 25 mcg PO BEDTIME omega 2-zjk-qsv-fish oil [Fish Oil] 300-1,000 mg capsule 1 cap PO DAILY flecainide 50 mg tablet 50 mg PO Q12H Slow-Mag 71.5 mg tablet,delayed release (DR/EC) 71.5 mg PO DAILY Eliquis 2.5 mg tablet 2.5 mg PO BID Qty: 60 0RF ferrous sulfate 325 mg (65 mg iron) tablet 325 mg PO DAILY Qty: 30 0RF furosemide 40 mg tablet 40 mg PO DAILY sodium citrate-citric acid [Oracit] 490-640 mg/5 mL solution 5 ml PO DAILY sodium bicarbonate 650 mg tablet Print Language: [place] Instructions: Weakness (ED), Dizziness (ED) Additional Instructions: Please contact your primary care physician tomorrow for follow-up from this emergency department visit and to discuss a vascular surgeon referral or request testing such as an ultrasound for evaluation. Referrals: Karie Mcfadden MD [Primary Care Provider, [facility]] - 1 week Discharge Date/Time: 07/08/25 19:32 Documented by User: Phillip Arroyo DO 07/08/25 19:43 HPI HPI - General Adult General Chief complaint: Dizziness Stated complaint: DIZZY Time Seen by Provider: 07/08/25 17:17 History of Present Illness HPI narrative: Patient is an 85-year-old female presenting to the emergency department for concerns of generalized weakness. She states she has longstanding history of weakness and vertigo/dizziness. However, it has worsened over the last couple days. She denies any other symptoms such as headaches, visual changes, paresthesias, limb weakness, chest pain, shortness of breath, nausea, or vomiting. She states she takes Eliquis, Plavix, and rosuvastatin for prior TIAs. She states she is a history of chronic kidney disease, has been making urine appropriately. She is not on dialysis. I took oover the patient from Dr. Arroyo at 19:00. He explained to me that the 85-year-old female presented to the emergency department for weakness. She does have a history of multiple TIAs without any residual deficits, chronic kidney disease, high blood pressure, and high cholesterol. He states today she has no neurologic deficits. Laboratories and EKGs were unremarkable. Her symptoms have been for 2 days. She has been having some balance issues as well. His workup was unremarkable although her urine analysis had not returned. 19:22 urinalysis returns and the patient has no evidence of a urinary tract infection. I go back in to speak to the patient and her daughter. As they understand from the nurse that signed over this evening when the patient got up to go to the restroom, she was a little bit unsteady on her feet and dizzy. When I go in the room the daughter states within the last 10 minutes the patient seemed to have more dizzy symptoms. I did tell them that the urine was negative. I offered to provide meclizine to the patient and then to watch and see if she was able to ambulate with a better upright and stable gait. The patient was also offered an opportunity to be observed in the hospital. Patient is refusing stating that she wants to go home. In fact, she is willing to try the meclizine but she is not willing to stay to see if there is any measurable improvement in her symptoms. Meclizine is cleared in the liver and will be safe for the patient who has chronic kidney disease. Next, patient states that for the last 6 months her left upper extremity has been more cold intermittently. She is also noticed some discoloration. She has never mentioned it to her primary care physician and wants to know what I can do about her presumed circulatory dysfunction and problem. I did respectfully tell her that she would likely have to see a vascular surgeon and that there could be a multitude of reasons why the arm is not getting good circulation. When I assessed that it is cool but it is not discolored and there is brisk capillary refill with +2 radial and ulnar pulses. At this time there is no reason to do any additional studies and she states that it is intermittent. At this time referral to a vascular surgeon is important and she can get that referral from her primary care physician. The patient's extremity is not painful. Discharge diagnosis: 1. Weakness 2. Dizziness 3. Cold left hand Condition: Stable Disposition: Discharge home with daughter Prescription: Meclizine Related Data Home Medications ?Medication ?Instructions ?Recorded ?Confirmed atorvastatin 40 mg tablet 40 mg PO DAILY 04/19/23 07/08/25 carvedilol 12.5 mg tablet 6.25 mg PO Q12H 04/19/23 07/08/25 cholecalciferol (vitamin D3) 25 25 mcg PO BEDTIME 06/19/23 07/08/25 mcg (1,000 unit) capsule omega 0-ace-bwo-fish oil 300 1 cap PO DAILY 06/19/23 07/08/25 mg-1,000 mg capsule (Fish Oil) magnesium chloride 71.5 mg 71.5 mg PO DAILY 10/10/24 07/08/25 (magnesium chloride) tablet,delayed release (Slow-Mag) furosemide 40 mg tablet 40 mg PO DAILY 02/04/25 02/11/25 sodium citrate-citric acid 490 5 ml PO DAILY 02/05/25 02/11/25 mg-640 mg/5 mL oral solution (Oracit) flecainide 50 mg tablet 50 mg PO Q12H 02/11/25 07/08/25 sodium bicarbonate 650 mg tablet mg 07/08/25 Previous Rx's ?Medication ?Instructions ?Recorded apixaban 2.5 mg tablet (Eliquis) 2.5 mg PO BID #60 tabs 10/14/24 ferrous sulfate 325 mg (65 mg 325 mg PO DAILY #30 tabs 10/14/24 iron) tablet meclizine 25 mg tablet 25 mg PO TID PRN dizziness #14 tabs 07/08/25 Allergies Allergy/AdvReac Type Severity Reaction Status Date / Time lenalidomide (From Revlimid) Allergy Rash Verified 02/04/25 15:57 pregabalin (From Lyrica) Allergy Rash Verified 02/04/25 15:57 oxybutynin AdvReac Mild Rash Verified 02/04/25 15:57 Opioid HPI Opioid Management Most Recent Opioid Data: Last Pain Scale 2 02/05/25, 13:37 Last Pain Intensity 2 02/05/25, 13:37 Last ORT Total Score 0 02/04/25, 16:55 Last ORT Risk Category Low Risk 02/04/25, 16:55 Review of Systems ROS Status of ROS 10 or more systems reviewed and unremarkable except as noted in history and below [facility] Medical History (Updated 07/08/25 @ 19:27 by Viry Torre DO) Chronic heart failure with preserved ejection fraction (HFpEF) ?I50.32 - Chronic diastolic (congestive) heart failure (ICD-10) Paroxysmal atrial fibrillation ?I48.0 - Paroxysmal atrial fibrillation (ICD-10) CKD (chronic kidney disease) stage 4, GFR 15-29 ml/min ?N18.4 - Chronic kidney disease, stage 4 (severe) (ICD-10) Type 2 diabetes mellitus with hyperglycemia ?E11.65 - Type 2 diabetes mellitus with hyperglycemia (ICD-10) Multiple myeloma ?C90.00 - Multiple myeloma not having achieved remission (ICD-10) Hypertension ?I10 - Essential (primary) hypertension (ICD-10) Anterior epistaxis ?R04.0 - Epistaxis (ICD-10) Upper respiratory infection ?J06.9 - Acute upper respiratory infection, unspecified (ICD-10) Acute bronchospasm ?J98.01 - Acute bronchospasm (ICD-10) H/O epistaxis ?Z87.898 - Personal history of other specified conditions (ICD-10) Encounter for removal of nasal pack ?Z48.00 - Encounter for change or removal of nonsurgical wound dressing (ICD-10) Upper respiratory tract infection due to COVID-19 virus ?U07.1 - COVID-19 (ICD-10) ?J06.9 - Acute upper respiratory infection, unspecified (ICD-10) UTI (urinary tract infection) ?N39.0 - Urinary tract infection, site not specified (ICD-10) Acute on chronic diastolic (congestive) heart failure ?I50.33 - Acute on chronic diastolic (congestive) heart failure (ICD-10) Viral URI with cough ?J06.9 - Acute upper respiratory infection, unspecified (ICD-10) Congestive heart failure ?I50.9 - Heart failure, unspecified (ICD-10) A-fib ?I48.91 - Unspecified atrial fibrillation (ICD-10) CHF (congestive heart failure) ?I50.9 - Heart failure, unspecified (ICD-10) Gastrointestinal hemorrhage with melena ?K92.1 - Melena (ICD-10) Upper gastrointestinal bleed ?K92.2 - Gastrointestinal hemorrhage, unspecified (ICD-10) Syncope and collapse ?R55 - Syncope and collapse (ICD-10) GI bleeding ?K92.2 - Gastrointestinal hemorrhage, unspecified (ICD-10) HLD (hyperlipidemia) ?E78.5 - Hyperlipidemia, unspecified (ICD-10) H/O: CVA (cerebrovascular accident) ?Z86.73 - Personal history of transient ischemic attack (TIA), and cerebral infarction without residual deficits (ICD-10) Type 2 diabetes mellitus ?E11.9 - Type 2 diabetes mellitus without complications (ICD-10) Cerebrovascular disease ?I67.9 - Cerebrovascular disease, unspecified (ICD-10) Hypertension ?I10 - Essential (primary) hypertension (ICD-10) Cataract ?H26.9 - Unspecified cataract (ICD-10) Stroke ?I63.9 - Cerebral infarction, unspecified (ICD-10) Osteoarthritis of left knee ?M17.12 - Unilateral primary osteoarthritis, left knee (ICD-10) Surgical History Hx of cholecystectomy ?Z90.49 - Acquired absence of other specified parts of digestive tract (ICD-10) History of hysterectomy ?Z90.710 - Acquired absence of both cervix and uterus (ICD-10) Family History Mother Family history of CHF (congestive heart failure) Family history of diabetes mellitus Family history of stroke Sister Family history of CHF (congestive heart failure) Family history of diabetes mellitus Family history of hypertension Grandmother Family history of cancer Family history of diabetes mellitus Brother No problems noted. Father No problems noted. Social History (Updated 02/04/25 @ 17:10 by Marisa Berman RN) Within the past year, how often did you have a drink containing alcohol: never Within the past year, how often did you have six or more drinks on one occasion: never Score interpretation: A score less than 3 is consistent with normal alcohol consumption. 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 EYES: Sclerae white. EARS, NOSE, THROAT: Moist oral mucosa. RESPIRATORY: Clear to auscultation bilaterally, no wheezes, crackles, or stridor, no use of accessory muscles CARDIOVASCULAR: Normal rate and regular rhythm. There is no S3, S4, murmur, rub. GASTROINTESTINAL: Abdomen is soft, nontender, nondistended MUSCULOSKELETAL: No peripheral edema. NEUROLOGIC: Patient is awake and alert. Equal strength and sensation to light touch in the bilateral extremities. Sensation intact to light touch to the V1/V2/V3 distribution of the face. Ydcnsx-bm-asuc intact. No slurred speech. Tongue protrudes midline. EOMI. Facies were symmetrical. Constitutional Vital Signs, click to edit/add: Last Vital Signs Pulse 62 07/08/25 16:33 Resp 16 07/08/25 16:33 BP 130/87 07/08/25 16:33 Pulse Ox 95 07/08/25 16:33 O2 Del Method Room Air 07/08/25 16:33 Course Vital Signs Vital signs: Vital Signs Pulse Rate 62 07/08/25 16:33 Respiratory Rate 16 07/08/25 16:33 Blood Pressure 130/87 07/08/25 16:33 Pulse Oximetry 95 07/08/25 16:33 Oxygen Delivery Method Room Air 07/08/25 16:33 Pulse Rate 62 07/08/25 16:33 Respiratory Rate 16 07/08/25 16:33 Blood Pressure 130/87 07/08/25 16:33 Pulse Oximetry 95 07/08/25 16:33 Oxygen Delivery Method Room Air 07/08/25 16:33 Medical Decision Making MDM Narrative Medical decision making narrative: Patient is a 85-year-old female presenting to the emergency department for 2-day history of acute on chronic generalized weakness and dizziness. Vital signs on arrival are within limits. He is afebrile and hemodynamically stable. Overall, the patient appears well and nontoxic. She is awake, alert, and mentating appropriately. She has no focal neurologic deficits. Differential diagnose includes vertigo, acute on chronic kidney disease, electrolyte derangements, metabolic derangement, ACS, UTI. IV was established and laboratory studies were obtained. Laboratory studies were unremarkable. No significant electrolyte or metabolic derangement. No evidence of acute kidney injury. No anemia, leukocytosis, or thrombocytopenia. No transaminitis or hyperbilirubinemia. Troponin nonelevated. 12 Lead EKG: Sinus bradycardia at a rate of 58. Normal axis. No ST segment elevations. QRS, IL, and QTc interval within normal limits. Unchanged compared to prior EKG from 01/29/2025. Final impression: Sinus bradycardia without evidence of acute myocardial ischemia My shift is now coming to an end. At the time of signout, results of the urinalysis is pending. Medical Records Medical records reviewed: Yes I reviewed the patient's medical records Lab Data Lab results reviewed: Yes I reviewed the patient's lab results Labs: Lab Results 07/08/25 07/08/25 Range/Units 17:54 18:48 WBC 7.6 (4.0-11.0) 10^3/uL RBC 4.10 L (4.20-5.40) 10^6/uL Hgb 12.8 (12.0-16.0) g/dL Hct 39.5 (36.0-48.0) % MCV 96.3 (81.0-99.0) fL MCH 31.2 (26.7-34.0) pg MCHC 32.4 (29.9-35.2) g/dL RDW 12.8 (11.0-15.0) % Plt Count 179 (150-450) 10^3/uL MPV 11.3 (9.5-13.5) fL Neut % (Auto) 59.5 (43.0-75.0) % Lymph % (Auto) 29.5 (20.5-60.0) % Gregory % (Auto) 8.7 (1.7-12.0) % Eos % (Auto) 1.6 (0.9-7.0) % Baso % (Auto) 0.4 (0.2-2.0) % Neut # (Auto) 4.5 (1.4-6.5) 10^3/uL Lymph # (Auto) 2.2 (1.2-3.8) 10^3/uL Gregory # (Auto) 0.7 (0.3-0.8) 10^3/uL Eos # (Auto) 0.1 (0.0-0.7) 10^3/uL Baso # (Auto) 0.0 (0.0-0.1) 10^3/uL Abs Immat Gran (auto) 0.02 (0.00-0.03) 10^3/uL Imm/Tot Granulo (auto) 0.3 (0.0-0.5) % Sodium 141 (136-145) mmol/L Potassium 4.8 (3.5-5.1) mmol/L Chloride 109 H (98-107) mmol/L Carbon Dioxide 24.4 (21.0-32.0) mmol/L Anion Gap 12.4 BUN 40.0 H (7.0-18.0) mg/dL Creatinine 2.62 H (0.55-1.02) mg/dL Est GFR ( Amer) 21 L (>=60 mL/min/1.73m^2) Est GFR (Non-Af Amer) 17 L (>=60 mL/min/1.73m^2) BUN/Creatinine Ratio 15.3 Glucose 110 H (74-106) mg/dL Calcium 8.6 (8.5-10.1) mg/dL Magnesium 2.1 (1.8-2.4) mg/dL Total Bilirubin 0.3 (0.2-1.0) mg/dL AST 11 L (15-37) U/L ALT 16 (14-59) U/L Alkaline Phosphatase 128 H (46-116) U/L Troponin I High Sens 7.2 (4.0-51.3) pg/mL Total Protein 7.1 (6.4-8.2) g/dL Albumin 3.1 L (3.4-5.0) g/dL Globulin 4.0 g/dL Albumin/Globulin Ratio 0.8 Urine Color Lt. yellow (YELLOW) Urine Clarity Clear (CLEAR) Urine pH 6.0 (5.0-9.0) Ur Specific [place] 1.010 (1.005-1.025) Urine Protein Trace (NEG/TRACE) mg/dL Urine Glucose (UA) Negative (NEGATIVE) mg/dL Urine Ketones Negative (NEGATIVE) mg/dL Urine Occult Blood Negative (NEGATIVE) Urine Nitrite Negative (NEGATIVE) Urine Bilirubin Negative (NEGATIVE) Urine Urobilinogen 0.2 (0.2-1.0) EU/dL Ur Leukocyte Esterase Negative (NEGATIVE) Urine RBC None seen (0-2) #/HPF Urine WBC 0-2 A (NONE SEEN) #/HPF Ur Squamous Epith Cells Rare (NONE/RARE) #/LPF Urine Crystals None seen (None Seen) #/HPF Urine Bacteria None seen (NONE SEEN) #/HPF Urine Casts None seen (NONE SEEN) #/LPF Urine Mucus None seen (NONE SEEN) Ur Culture Indicated? No ECG Data Attestation: I personally reviewed and interpreted this ECG as follows: Discharge Plan Discharge Chief Complaint: Dizziness Clinical Impression: Dizziness, Weakness, Cold extremity without peripheral vascular disease Patient Disposition: Home, Self-Care Time of Disposition Decision: 19:27 Condition: Good Mode of Transportation: Private Vehicle Prescriptions / Home Meds: New meclizine 25 mg tablet 25 mg PO TID PRN (Reason: dizziness) Qty: 14 0RF No Action atorvastatin 40 mg tablet 40 mg PO DAILY carvedilol 12.5 mg tablet 6.25 mg PO Q12H cholecalciferol (vitamin D3) 25 mcg (1,000 unit) capsule 25 mcg PO BEDTIME omega 4-vda-wks-fish oil [Fish Oil] 300-1,000 mg capsule 1 cap PO DAILY flecainide 50 mg tablet 50 mg PO Q12H Slow-Mag 71.5 mg tablet,delayed release (DR/EC) 71.5 mg PO DAILY Eliquis 2.5 mg tablet 2.5 mg PO BID Qty: 60 0RF ferrous sulfate 325 mg (65 mg iron) tablet 325 mg PO DAILY Qty: 30 0RF furosemide 40 mg tablet 40 mg PO DAILY sodium citrate-citric acid [Oracit] 490-640 mg/5 mL solution 5 ml PO DAILY sodium bicarbonate 650 mg tablet Print Language: Moz[place] Instructions: Weakness (ED), Dizziness (ED) Additional Instructions: Please contact your primary care physician tomorrow for follow-up from this emergency department visit and to discuss a vascular surgeon referral or request testing such as an ultrasound for evaluation. Referrals: Karie Mcfadden MD [Primary Care Provider, Family Practice] - 1 week Discharge Date/Time: 07/08/25 19:32
[2025-07-08] MEDS: MECLIZINE HCL 12.5 MG TABLET 25 MG PO (19:30)
== END 2025-07-08 19:32 | disposition home or self-care (01) ==
PROVIDERS: Emergency Provider Student in an Organized Health Care Education/Training Program; PCP Family Medicine
DX: R42 Dizziness and giddiness (principal); R53.1 Weakness; R09.89 Other specified symptoms and signs involving the circulatory and respiratory systems; Z86.73 Personal history of transient ischemic attack (TIA), and cerebral infarction without residual deficits; N18.9 Chronic kidney disease, unspecified; I12.9 Hypertensive chronic kidney disease with stage 1 through stage 4 chronic kidney disease, or unspecified chronic kidney disease; E78.00 Pure hypercholesterolemia, unspecified; Z90.49 Acquired absence of other specified parts of digestive tract; Z90.710 Acquired absence of both cervix and uterus
CPT/HCPCS: 36415; 80053; 81001; 83735; 84484; 85025; 93005; 99285

== ENCOUNTER 2025-09-16 08:50 | Outpatient (OUT) | payer MEDICARE, OTHER, SELFPAY ==
--- OUTSIDE RECORDS SUMMARY | 2025-09-16 08:54 | XMS_ITS | Clinical Summary ---
Author Organization [facility] Address [address] [place] [address] Phone Care Team Providers Care Tag Stringer Name Role Phone Karie Mcfadden MD Primary Care Provider [phone] Allergies Active AllergyReactionsCriticalityNoted DateCommentsOxybutyninHives,RashLow 10/04/2023 Medications MedicationSigDispense QuantityRefillsLast FilledStart DateEnd DateStatus cholecalciferol (Vitamin D-3) 25 MCG (1000 UT) tablet Take 1 tablet (25 mcg) by mouth once daily.Active fish oil concentrate ([place]-3) 120-180 mg capsule Take 1 capsule (1 g) by mouth 2 times a day.Active insulin NPH, Isophane, (HumuLIN N,NovoLIN N) 100 unit/mL injection Inject 15 Units under the skin once daily in the morning. Take as directed per insulin instructions.Active docusate sodium (Colace) 100 mg capsule Take 1 capsule (100 mg) by mouth once daily.Active ferrous sulfate, 325 mg ferrous sulfate, tablet Take 1 tablet by mouth once daily with breakfast.4Active Slow-Mag 71.5 mg tablet,delayed release (DR/EC) Take 1 tablet (71.5 mg) by mouth early in the morning..4Active apixaban (Eliquis) 2.5 mg tablet Indications:Persistent atrial fibrillation with RVR (Multi)Take 1 tablet (2.5 mg) by mouth 2 times a day. 180 tablet /5Active flecainide (Tambocor) 50 mg tablet Indications:Persistent atrial fibrillation with RVR (Multi)Take 1 tablet (50 mg) by mouth 2 times a day. 180 tablet 5002/06/2026ctive sodium citrate-citric acid (Oracit) 490-640 mg/5 mL solution Take 5 mL by mouth early in the morning..Active carvedilol (Coreg) 3.125 mg tablet Take 1 tablet (3.125 mg) by mouth 2 times a day.Active atorvastatin (Lipitor) 40 mg tablet Indications:Mixed hyperlipidemiaTAKE 1 TABLET DAILY 90 tablet 5Active Active Problems ProblemNoted DateDiagnosed DateAtrial yvdrzqp0602/19/2025Long term current use of anticoagulant gttricj5102/19/2025GI bleed11/01/2024MI 31.0-31.9,adult04/17/2024 Never smoked fvowtzz3004/17/2024ortic valve regurgitation, ezfxgumkelga01/21/2023 Ascending aorta fhvidrfm83/21/2023hronic kidney disease, stage 311 Diabetes nwepcvqj18/21/2023Essential cbwyhwdnbbox91/21/2023Mixed hyperlipidemia 10/04/2023Multiple wvpewfn3110/04/2023ersistent atrial fibrillation with RVR 10/04/2023ulmonary wynegxucksej93/21/2023Shortness of breath at rest10/04/2023 Encounters DateTypeDepartmentCare AyyxIewweagmgfb82/27/2025Refill [facility] [address] [address] Ignacio Gardner MD Mixed hyperlipidemiafrom Last 3 Months Family History Medical HistoryRelationNameCommentsCVAMotherDiabetesMotherHypertensionMother cardiac disorderMotherCVASisterDiabetesSisterHypertensionSistercardiac disorder SisterRelationNameStatusCommentsMotherSister Social History Tobacco UseTypesPacks/DayYears UsedDateSmoking Tobacco: NeverSmokeless Tobacco: Never Tobacco Cessation:Counseling Given: Not Answered Alcohol UseStandard Drinks/WeekCommentsNever0 (1 standard drink = 0.6 oz pure alcohol)CommentsUnknownSex and Gender InformationValueDate RecordedSex Assigned at BirthNot on fileLegal MckYloslq51/25/2022 9:32 AM ESTGender Identity Not on fileSexual OrientationNot on file Last Filed Vital Signs Vital SignReadingTime TakenCommentsBlood Mgvydflj974/6007 11:16 AM EDT Lkena937905/24/2025 11:16 AM EDTTemperature--Respiratory Rate--Oxygen Saturation-- Inhaled Oxygen Concentration--Xeniry08 kg (183 lb)05/24/2025 11:16 AM EDTHeight 162.6 cm (5' 4 )05/24/2025 11:16 AM EDTBody Mass Index31.41005/24/2025 11:16 AM EDT Plan of Treatment DateTypeDepartmentCare Team (Latest Contact Info)Fhfojujifiw51/18/2026 3:30 PM ESTOffice Visit [facility] [address] [facility] [address] [place] [address] Ignacio Gardner MD [address] [facility] [address] [place] [address] Health MaintenanceDue DateLast DoneCommentsCreatinine Level2Diabetes: Hemoglobin A1C2Diabetes: Urine Protein Dkawwsnty1942Lipid Panel 1942Medicare Annual Wellness Visit (AWV)2Potassium Level 2Pneumococcal Vaccine (1 of 2 - PCV)1961Zoster Vaccines (1 of 2) 1DTaP/Tdap/Td Vaccines (1 - Tdap)1964RSV High Risk: (Elderly (60+) or Population) (1 - 1-dose 75+ series)2017Bone Density Scan /Influenza Vaccine (#1)5COVID-19 Vaccine (1 - 2024- season)2025Diabetes: Retinopathy Xhlcsufpy00/27/46981601/10/2024, 11/08/2023, 11/08/2022, Additional history vgokbgWnkhzozvpipmyg74/08/2026 11/21/2024, 09/18/2024, 11/02/2023, Additional history existsHIB VaccinesAged OutNo longer eligible based on patient's age to complete this topicHPV Vaccines Aged OutNo longer eligible based on patient's age to complete this topic Hepatitis A VaccinesAged OutNo longer eligible based on patient's age to complete this topicHepatitis B VaccinesAged OutNo longer eligible based on patient's age to complete this topicIPV VaccinesAged OutNo longer eligible based on patient's age to complete this topicMeningococcal VaccineAged OutNo longer eligible based on patient's age to complete this topicRotavirus VaccinesAged Out No longer eligible based on patient's age to complete this topic Procedures Procedure NamePriorityDate/TimeAssociated DiagnosisCommentsECHOCARDIOGRAM 11/21/2024 from Last 3 Months or Most Recently Relevant to Health Maintenance Results * Echocardiogram (11/21/2024) Narrative 11/21/2024 Ordered by an unspecified provider. Authorizing ProviderResult TypeResult StatusGeneric Provider ScanningCV ECHO PROCEDURESFinal Result from Last 3 Months or Most Recently Relevant to Health Maintenance Insurance Care Teams Team MemberRelationshipSpecialtyStart DateEnd Karie Mcfadden MD PCP - GeneralFamily Ksrkmwbx00/9/23
--- OUTSIDE RECORDS SUMMARY | 2025-09-16 08:54 | XMS_ITS | Clinical Summary ---
Author Organization [facility] Address [address] [place] [address] Care Team Providers Care Regulatory Consultant Name Role Phone Karie Mcfadden MD Primary Care Provider [phone] Allergies Active AllergyReactionsCriticalityNoted DateCommentsHydrocodone-Acetaminophen 03/05/2024LenalidomideRash,IsjgrMmv46/11/2016OxybutyninHives,Rash,OtherLow 10/04/2023 Other Reaction(s): Rash, rash, hives GbbuvxxowmMfyxc54/22/2024 Other Reaction(s): double vision Medications MedicationSigDispense QuantityRefillsLast FilledStart DateEnd DateStatus Cyanocobalamin (VITAMIN B-12 PO) Take by mouthActive [place]-3 Fatty Acids (FISH OIL PO) Take by mouthActive atorvastatin (Lipitor) 40 MG tablet Take 40 mg by mouth Daily 1 tabletActive aspirin (Aspirin Adult Low Strength) 81 MG EC tablet Take 81 mg by mouth Daily Delayed Release 1 tabletActive carvedilol (Coreg) 12.5 MG tablet Take 12.5 mg by mouth DailyActive acyclovir (Zovirax) 400 MG tablet Take 400 mg by mouth in the morning and 400 mg before bedtime.Active rivaroxaban (Xarelto) 15 MG tablet Take 15 mg by mouth in the evening. Take with meals Take with food.1 tablet with foodActive amLODIPine (Norvasc) 5 MG tablet Take 5 mg by mouth Daily 1 tabletActive Sod Citrate-Citric Acid (Oracit) 490-640 MG/5ML solution Take 10 mL by mouth TAKE 10ML BY MOUTH AFTER MEALS AND AT BEDTIME DILUTED WITH 1-3 OUNCES OF WATER OR JUICEActive apixaban (Eliquis) 2.5 MG tablet Take 2.5 mg by mouth in the morning and 2.5 mg in the evening.Active insulin NPH, Isophane, (HumuLIN N) 100 UNIT/ML injection Inject 15 Units under the skin in the morning and 15 Units in the evening. Inject before meals.07/05/2024ctive DULoxetine (Cymbalta) [address] capsule Take 20 mg by mouth Daily05/31/2024ctive ferrous sulfate 325 (65 Fe) MG tablet Take 325 mg by mouth in the morning. Take with meals.10/14/2024ctive flecainide (Tambocor) 50 MG tablet Take 50 mg by mouth in the morning and 50 mg in the evening. Active Active Problems ProblemNoted DateDiagnosed DateType 2 diabetes mellitus with hyperglycemia 10/18/2024Long term (current) use of sqofjvx7810/18/2024Vitamin D deficiency, mjzfaynjyib40/05/2024Multiple hxuknyw7803/05/2024 Overview (03/05/2024): History of multiple myeloma. MRI of the brain on 11/15/19 was without mention of brain mass or metastases. 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 She reports chronic, intermittent dizziness and has ataxia on the right. She is taking aspirin and Xarelto. She denies any recent bleeding. - PLAN: - Carotid ultrasound to assess for carotid artery stenosis - Continue aspirin 81 mg PO once aday - Continue statin (management per PCP; goal LDL < 70) - Follow closely with primary care provider for management of cerebrovascular risk factors including hypertension, hyperlipidemia, and diabetes mellitus - I counseled the patient on signs and symptoms of TIA/stroke and educated the patient to seek emergent care in the emergency department if any of these arise Paroxysmal atrial blxqvhgnupmd87/22/2024 Overview (03/05/2024): The patient has a history of atrial fibrillation, on Xarelto and carvedilol. Atrial fibrillation evaristo significant risk factor for stroke. PLAN: - Follow closely with cardiology for management Lumbosacral etkskfbvftdwd48/22/2024 Overview (03/05/2024): Stable. At her last visit she had new, intermittent weakness in the left leg which could be from anacute left-sided lumbar radiculopathy but this has since resolved. If the symptoms return, we will consider further work-up for radiculopathy. Gait ceaxpgrqkwn10/22/2024 Overview (03/05/2024): The patient has chronic gait instability. She completed physical therapy with subjective benefit and denies any falls since the prior appointment. MRI of the brain on 11/15/19 revealed evidence of a remote infarct in the right cerebellum which could certainly be contributory. Lower extremity sensation is intact on clinical exam making a peripheral process less likely. PLAN: - Continue home physicaltherapy exercises - I encouraged the use of assistive device for ambulation - Fall prevention measures discussed Encounters DateTypeDepartmentCare MhopTarbbwapenl71/29/2025External Result Encounter [facility] Unsolicited Kev Choi, DO 08/12/2025External Result Encounter [facility] Unsolicited Kev Choi, DO 08/12/2025External Result Encounter [facility] Unsolicited Kev Choi, DO 08/12/2025External Result Encounter [facility] Unsolicited Kev Choi, DO from Last 3 Months Family History Medical HistoryRelationNameCommentsCancerFatherMultiple myelomaFatherDiabetes MotherC. L. JohnsonHeart diseaseMotherC. L. JohnsonStrokeMotherC. L. Spike DiabetesOtherHeart diseaseOtherHyperlipidemiaOtherHypertensionOtherMultiple sclerosisOtherStrokeOtherRelationNameStatusCommentsFatherDeceasedMotherC. L. JohnsonAliveOther Social History Tobacco UseTypesPacks/DayYears UsedDateSmoking Tobacco: NeverSmokeless Tobacco: Never Tobacco Cessation:Counseling Given: Not Answered Alcohol UseStandard Drinks/WeekCommentsNever0 (1 standard drink = 0.6 oz pure alcohol)CommentsUnknownSex and Gender InformationValueDate RecordedSex Assigned at BirthNot on fileLegal NfpZwvelx62/01/2023 8:34 PM EDTGender Identity Not on fileSexual OrientationNot on file Last Filed Vital Signs Vital SignReadingTime TakenCommentsBlood Mxtftwvl211/8903/25/2025 1:29 PM EDT Swapg450403/25/2025 1:29 PM EDTTemperature--Respiratory Nfxz5615 3:45 PM EDTOxygen Ntfoyjuerd03%05/22/2024 3:45 PM EDTInhaled Oxygen Concentration-- Nvwsrn22.9 kg (185 lb)03/25/2025 1:29 PM DVBPpjooq577.6 cm (5' 6 )03/25/2025 1:29 PM EDTBody Mass Index29.8603/25/2025 1:29 PM EDT Plan of Treatment Not on file Procedures Procedure NamePriorityDate/TimeAssociated DiagnosisCommentsXR BONE SURVEY YJZINNTZ88/29/2025 4:57 PM EDT IMMUNOFIXATION,SERUM ([facility])Gheseed4208/12/2025 1:57 PM EDT FREE K+L LT CHAINS, QN, PJsxyerr04/29/2025 1:57 PM EDT PROTEIN ELECTROPHORESIS, WIZJUPifqppr82/29/2025 1:57 PM EDT COMPREHENSIVE METABOLIC TZGSXIhttrix87/29/2025 1:57 PM EDT CBC WITH AUTO VNBDCIRCYHZWCrttbay74/29/2025 1:57 PM EDT from Last 3 Months Results * XR bone survey complete (08/12/2025 4:57 PM EDT)Anatomical RegionLaterality ModalityBody, Upper Extremities, Lower Extremities, Spine, Head, Neck Radiographic ImagingSpecimen (Source)Anatomical Location / Laterality Collection Method / VolumeCollection TimeReceived Time08/12/2025 4:57 PM EDT Impressions 08/12/2025 5:03 PM EDT There is a 15 mm lucency in the left iliac bone adjacent to the left sacroiliac joint. ??There is a7 mm lucency in the right iliac bone. ? No additional areas of lucency are noted. ? Impression dictated by: Armando Huynh M.D. ??08/12/2025 5:01 PM ? Dictation Location: RADIO-PC-24 ? Transcribed By: ? PWS ?08/12/25 1701 ? Dictated By: ?Armando Huynh II, MD ?08/12/25 1657 ? Signed By: <Electronically signed by Armando Huynh II, MD in OV> ? 08/12/25 1701 Narrative 08/12/2025 5:03 PM EDT [facility] ?[facility] Main [place] ?[address] ? [place] [address] ?XRay Report ? Signed ? Patient: Missler,Hailee J ?MR#: [id number] ?? [id number] ? : 1940 ?Acct:[id number] ? Age/Sex: 85 / F ?ADM Date: 09/29/25 ? Loc: XT ?Room: ?Type: REG RCR ?? Attending Dr: Kev Choi II DO ?? Copies to: Kev Choi II, DO ? Ordering Provider: Kev Choi II, DO ?? Date of Service: 08/12/25 ?? XR/XR bone survey: C90.00 - Multiple myeloma not having achieved remission ? XR bone survey ??08/12/2025 1:32 PM ? SIGNS AND SYMPTOMS: ?? C90.00 - Multiple myeloma not having achieved remission ? PROTOCOL: Frontal and lateral radiograph images of the skeletal structures ? COMPARISON: None ? FINDINGS: ? Degenerative changes are noted throughout the cervical, thoracic, and lumbar spine. ??Degenerative changes are noted in the hips, knees, wrists, and shoulders. ??There is enthesophyte formation along the iliac wings. ? A right-sided Avxytu-j-Fnzy is present. ??There is evidence of prior cholecystectomy in the right upper quadrant. ? There is a 15 mm lucency in the left iliac bone adjacent to the left sacroiliac joint. ??There is a7 mm lucency in the right iliac bone. ? XR/XR bone survey ?? Procedure Note Armando Huynh MD - 08/12/2025 [facility] Main [place] [address] [place] [address] XRay Report Signed Patient: Hailee Triveid JMR#: [id number] : 2Acct:[id number] Age/Sex: 85 / FADM Date: 08/12/25 Loc: XT Room:Type: REG RCR Attending Dr: Kev Choi II DO Copies to: Kev Choi II, DO Ordering Provider: Kev Choi II, DO Date of Service: 08/12/25 XR/XR bone survey: C90.00 - Multiple myelomanot having achieved remission XR bone survey 08/12/2025 1:32 PM SIGNS AND SYMPTOMS: C90.00 - Multiple myeloma not having achieved remission PROTOCOL: Frontal and lateral radiograph images of the skeletal structures COMPARISON: None FINDINGS: Degenerative changes are noted throughout the cervical, thoracic, andlumbar spine. Degenerative changes are noted in the hips, knees, wrists, and shoulders. There is enthesophyte formation along the iliac wings. A right-sided Utxwqc-k-Ordd is present. There is evidence of prior cholecystectomy in the right upper quadrant. There is a 15 mm lucency in the left iliac bone adjacent to the leftsacroiliac joint. There is a 7 mm lucency in the right iliac bone. XR/XR bone survey IMPRESSION: There is a 15 mm lucency in the left iliac bone adjacent to the leftsacroiliac joint. There is a 7 mm lucency in the right iliac bone. No additional areas of lucency are noted. Impression dictated by: Armando Huynh M.D. 08/12/2025 5:01 PM Dictation Location: [place] [address] Transcribed By: [facility] 08/12/25 170 Dictated By: Armando Huynh II, MD 08/12/25 1657 Signed By: <Electronically signed by Armando Huynh II, MD inOV> 08/12/25 170 Authorizing ProviderResult TypeResult StatusTimcain Hanley Steph DOIMG XR PROCEDURESFinal Result * FREE K+L LT CHAINS, QN, S (08/12/2025 1:57 PM EDT)ComponentValueRef RangeTest MethodAnalysis TimePerformed AtPathologist SignatureFREE KAPPA LIGHT CHAINS, S 44.73.3 - 19.4 mg/L08/13/2025 4:36 PM EDTFIRELANDSFREE LAMBDA LIGHT CHAINS, S 24.55.7 - 26.3 mg/L08/13/2025 4:36 PM EDTFIRELANDSKAPPA/LAMBDA RATIO, S1.82 0.26 - 1.6509/ 4:36 PM EDTFIRELANDSComment: Performed at: ?? - [facility] ??[id number] Clinical Haematologist: Elpidio Delgado PhD, Phone: ??[phone] Specimen (Source)Anatomical Location / LateralityCollection Method / Volume Collection TimeReceived TimeOtherTopography unknown / Lgcvaou9108/12/2025 1:57 PM EDT08/12/2025 2:05 PM EDT Narrative Authorizing ProviderResult TypeResult StatusJunaidcain Hanley Adityabhargav [facility] BLOOD ORDERABLESFinal ResultPerforming OrganizationAddressSelect [facility] [place]/[facility]/ZIP CodePhone Number [facility] [address] [place] [address], * IMMUNOFIXATION,SERUM ([facility]) (08/12/2025 1:57 PM EDT)ComponentValueRef Range Test MethodAnalysis TimePerformed AtPathologist SignatureIMMUNOFIXATION, SERUM Comment:.08/14/2025 10:36 AM EDTFIRELANDSComment: Presence of monoclonal protein is unclear at this time. Suggest repeat in 3 to 6 months if clinically indicated. IMMUNOGLOBULIN Y364661 - 1,602 mg/dL08/14/2025 10:36 AM EDTFIRESAM[facility] IMMUNOGLOBULIN A, CAVOZ76401 - 422 mg/dL08/14/2025 10:36 AM EDTFIRELANDS IMMUNOGLOBULIN M, DQTNE76253 - 217 mg/dL08/14/2025 10:36 AM EDTFIRELANDSComment: Performed at: ?? - [facility] [address] ??[id number] Clinical Haematologist: Elpidio Delgado PhD, Phone: ??[phone] Specimen (Source)Anatomical Location / LateralityCollection Method / Volume Collection TimeReceived TimeOtherTopography unknown / Shcedlt8008/12/2025 1:57 PM EDT08/12/2025 2:05 PM EDT Narrative Authorizing ProviderResult TypeResult StatusKev Choi [facility] BLOOD ORDERABLESFinal ResultPerforming OrganizationAddress[facility] [place]/State/ZIP CodePhone Number [facility] [address] [place] [address], * CBC auto differential (08/12/2025 1:57 PM EDT)ComponentValueRef RangeTest MethodAnalysis TimePerformed AtPathologist SignatureWBC8.03.8 - 11.6 [CFU]/mL 08/12/2025 2:23 PM [facility] CtrUNCORRECTED WHITE BLOOD COUNT8.03.8 - 11.6 10*3/uL08/12/2025 2:23 PM [facility] RBC4.083.60 - 5.00 10*6/uL08/12/2025 2:23 PM [facility]tr YXUCEMFLJQ25.911.8 - 15.4 g/dL08/12/2025 2:23 PM [facility] QkoPEKKQPMNQG54.234.0 - 46.4 %08/12/2025 2:23 PM [facility] FntBYU36.580 - 100 fL08/12/2025 2:23 PM [facility] LgsWGI69.624.7 - 34.3 pg08/12/2025 2:23 PM [facility] Ctr MCHC33.832.0 - 35.0 g/dL08/12/2025 2:23 PM [facility] Ctr RED CELL DISTRIBUTION WIDTH, RDW13.311.9 - 15.3 %08/12/2025 2:23 PM [facility] CtrPLATELET XHOOE859405 - 450 10*3/uL08/12/2025 2:23 PM [facility] CtrMEAN PLATELET VOLUME, MPV9.66.3 - 10.7 fL08/12/2025 2:23 PM [facility] CtrNEUTROPHILS, %69.0. %08/12/2025 2:23 PM [facility] CtrLYMPHOCYTES, %23.3. % 08/12/2025 2:23 PM [facility] CtrMONOCYTE/MACROPHAGE, %5.9. %08/12/2025 2:23 PM [facility] CtrEOSINOPHILS, %1.0. % 08/12/2025 2:23 PM [facility] CtrBASOPHILS, %0.8. % 08/12/2025 2:23 PM [facility] CtrNRBC0.00 - 0.5 /100{WBC} 08/12/2025 2:23 PM [facility] CtrNEUTROPHILS5.51.8 - 7.7 10*3/uL08/12/2025 2:23 PM [facility] CtrLYMPHOCYTES1.91.00 - 4.8 10*3/08/12/2025 2:23 PM [facility] CtrMONOCYTES0.5 0.0 - 0.8 10*3/08/12/2025 2:23 PM [facility] Ctr EOSINOPHILS0.10.0 - 0.45 10*3/08/12/2025 2:23 PM [facility] CtrBASOPHILS0.10.0 - 0.2 10*3/08/12/2025 2:23 PM [facility] CtrSpecimen (Source)Anatomical Location / Laterality Collection Method / VolumeCollection TimeReceived TimeBlood (Blood)08/12/2025 1:57 PM EDT08/12/2025 2:05 PM EDT Narrative Authorizing ProviderResult TypeResult StatusKev Choi DOLAB BLOOD ORDERABLESFinal ResultPerforming OrganizationAddressCity/State/ZIP CodePhone Number [facility] [address] [place] [address], [facility] [address] [place] [address] * Protein electrophoresis, serum (08/12/2025 1:57 PM EDT)ComponentValueRef Range Test MethodAnalysis TimePerformed AtPathologist SignatureTOTAL PROTEIN, SERUM 6.46.0 - 8.5 g/dL08/13/2025 3:08 PM EDTFIRELANDSALBUMIN, SERUM3.32.9 - 4.4 g/dL08/13/2025 3:08 PM CAOZBSPJUZAAJHIYU-9-VEPPJUTB0.10.0 - 0.4 g/dL08/13/2025 3:08 PM NGRCQBFJUDLFVFTRD-9-FRDVZYZE2.00.4 - 1.0 g/dL08/13/2025 3:08 PM EDT FI[place]SBET[place] GLOBULIN0.90.7 - 1.3 g/dL08/13/2025 3:08 PM EDTFIRELANDSGAMMA GLOBULIN1.00.4 - 1.8 g/dL08/13/2025 3:08 PM EDTFIRELANDSM-SPIKENot ObservedNot Observed g/dL08/13/2025 3:08 PM EDTFIRELANDSGLOBULIN, TOTAL3.12.2 - 3.9 g/dL 08/13/2025 3:08 PM EDTFIRELANDSA/G RATIO1.10.7 - 1.709 3:08 PM EDT FIRELANDSSPE-NOTEComment.08/13/2025 3:08 PM EDTFIRELANDSComment: Protein electrophoresis scan will follow via computer, mail, or automotive electrician helper delivery. Performed at: ??CB - [facility] [address] ??[id number] Clinical Haematologist: Elpidio Delgado PhD, Phone: ??[phone] Specimen (Source)Anatomical Location / LateralityCollection Method / Volume Collection TimeReceived TimeOtherTopography unknown / Hviocrn4708/12/2025 1:57 PM EDT08/12/2025 2:05 PM EDT Narrative Authorizing ProviderResult TypeResult StatusKev Choi [facility] BLOOD ORDERABLESFinal ResultPerforming OrganizationAddressCity/State/ZIP CodePhone Number [facility] [address] * (ABNORMAL) Comprehensive metabolic panel (08/12/2025 1:57 PM EDT)Component ValueRef RangeTest MethodAnalysis TimePerformed AtPathologist SignatureGlucose 161(H)70 - 100 mg/dL08/12/2025 2:43 PM [facility]tr Comment: Random Glucose Reference Range is dependent on time and content of last meal. Glucose of more than 200 mg/dL in a nonstressed, ambulatory subject supports the diagnosis of Diabetes Mellitus. ADA recommended reference range BUN35(H)7 - 25 mg/dL08/12/2025 2:43 PM [facility] CREATININE2.34(H)0.60 - 1.20 mg/dL08/12/2025 2:43 PM [facility] CtrESTIMATED GFR20.2408108/12/2025 2:43 PM [facility] BmcNetqbt477249 - 145 mmol/L08/12/2025 2:43 PM [facility] Potassium, Bld3.93.5 - 5.1 mmol/L08/12/2025 2:43 PM [facility] MktDhvfeoqt595(H)98 - 107 mmol/L08/12/2025 2:43 PM [facility] CtrCarbon Xyzaxix34.621.0 - 31.0 mmol/L08/12/2025 2:43 PM [facility] CtrAnion Gap10.36.0 - 15.009 2:43 PM [facility] CtrCalcium8.5(L)8.6 - 10.3 mg/dL08/12/2025 2:43 PM [facility] CtrTOTAL PROTEIN6.76.4 - 8.9 g/dL08/12/2025 2:43 PM EDT [facility] CtrALBUMIN LEVEL3.83.5 - 5.7 g/dL08/12/2025 2:43 PM [facility] CtrGLOBULIN2.9g/dL08/12/2025 2:43 PM [facility] CtrALBUMIN/GLOBULIN RATIO1.309 2:43 PM [facility] CtrBILIRUBIN,TOTAL0.40.3 - 1.0 mg/dL08/12/2025 2:43 PM EDT [facility] CtrASPARTATE AMINO LWDOFDHMELM3718 - 39 U/L08/12/2025 2:43 PM [facility] CtrALANINE DGTIZZXIJDXLWKZT318 - 52 U/L 08/12/2025 2:43 PM [facility] CtrALKALINE EELYUVTRTPK452(H)34 - 104 U/L08/12/2025 2:43 PM [facility] CtrCREATININE CLR CALC LYKWCPTY14.0608/12/2025 2:43 PM [facility] CtrSpecimen (Source)Anatomical Location / LateralityCollection Method / VolumeCollection TimeReceived TimeOtherTopography unknown / Mlrrphk5408/12/2025 1:57 PM EDT 08/12/2025 2:05 PM EDT Narrative Authorizing ProviderResult TypeResult StatusKev Choi DOLAB BLOOD ORDERABLESFinal ResultPerforming OrganizationAddressCity/State/ZIP CodePhone Number [facility] [address] [place] [address], [facility] [address] [place] [address] from Last 3 [place] [address] Care Teams Team MemberRelationshipSpecialtyStart DateEnd Date Karie Mcfadden MD [address] [facility] [place] [id number] PCP - GeneralFamily Medicine06/29/23
--- OUTSIDE RECORDS SUMMARY | 2025-09-16 08:54 | XMS_ITS | Clinical Summary ---
Author Organization [employer] Address [id number] [address] [place] [address] Care Team Providers Care Relay Record Clerk Name Role Phone Unavailable Primary Care Provider Unavailabl e Social History Tobacco UseTypesPacks/DayYears UsedDateSmoking Tobacco: Never AssessedChildcare AnswerDate GikkwdaiYlezzgmdoWbsdxcy10/12/2019EmploymentAnswerDate Recorded ShjaracvhzVounoec80/12/2019CommentsUnknownSex and Gender Information ValueDate RecordedSex Assigned at BirthNot on fileLegal YitZgpfjp56/06/2015 11:55 AM EDTGender IdentityNot on fileSexual OrientationNot on file Plan of Treatment Health MaintenanceDue DateLast DoneCommentsDepression Sdspjabdo20/30/1954Tobacco Usvtljydl74/30/1954DTaP,Tdap and Td Vaccines (1 - Tdap)1961Zoster (Shingles) Vaccine (1 of 2)1992Fall Risk Hykzykdaw70/30/2007RSV ( or age 60+ yrs) (1 - 1-dose 75+ series)2017Influenza Oswoyxx0307/15/2025 Medical Devices [place] [address]
[2025-09-16 09:22] LABS: Protein Creatinine Ratio Urine 0.59; Total Protein Urine Random 86.8 mg/dL (<=11.9)
[2025-09-16 09:35] LABS: Hematocrit 41.0 % (36.0-48.0); Hemoglobin 13.1 g/dL (12.0-16.0); Mean Corpuscular HGB Conc 32.0 g/dL (29.9-35.2); Mean Corpuscular Hemoglobin 31.0 pg (26.7-34.0); Mean Corpuscular Volume 97.2 fL (81.0-99.0); Platelet Count 190 10^3/uL (150-450); Red Blood Count 4.22 10^6/uL (4.20-5.40); White Blood Count 8.2 10^3/uL (4.0-11.0)
[2025-09-16 09:48] LABS: Albumin Level 3.3 g/dL (3.4-5.0); Anion Gap 13.0; Blood Urea Nitrogen 38.0 mg/dL (7.0-18.0); Calcium 8.8 mg/dL (8.5-10.1); Carbon Dioxide 24.4 mmol/L (21.0-32.0); Chloride 107 mmol/L (98-107); Estimated GFR (African America 22 (>=60 mL/min/1.73m^2); Estimated GFR (Non-African Ame 18 (>=60 mL/min/1.73m^2); Glucose 137 mg/dL (74-106); Magnesium 2.2 mg/dL (1.8-2.4); Potassium 5.4 mmol/L (3.5-5.1); Sodium 139 mmol/L (136-145); Uric Acid 4.9 mg/dL (2.6-6.0)
[2025-09-16 09:55] LABS: Glucose Urine UA NEGATIVE (NEGATIVE)
[2025-09-16 10:23] LABS: Cast Seen? NONE SEEN #/LPF (NONE SEEN); Crystals Seen? None Seen #/HPF (None Seen)
--- OUTSIDE RECORDS SUMMARY | 2025-09-16 11:48 | XMS_ITS | CCD ---
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 Name Role Phone Curt Clark Unavailable Unavailable Unavailable CURT CLARK Primary Care Physician [phone] Lopez, Akin Unavailable Quita Ayon Unavailable MD Curt Clark Primary Care Provider DO Claire Choi II Attending Provider Curt Clark Unavailable MD Curt Clark Primary Care Provider [phone] DO Claire Choi II Attending Provider DR [...] Unavailable CLARK, DR CURT Patel Consulting Unavailable KARLNEE, ZO Attending Unavailable KARLENE, ZO Admitting Unavailable [...] Unavailable PARK, TYREE Consulting Unavailable ZIEBER, DIANN Rivers Consulting Unavailable ADAMOWICZ, CLAIRE J Attending Unavailable ADAMOWICZ, CLAIRE Hanley Admitting Unavailable ADAMOWICZ, CLAIRE J Consulting Unavailable Clark, Dr. Curt Alva Primary Care Unav ailable Kendra, Dr. Rubi Referring Unavaila ble Traboulssi, Dr. Rubi Attending Unavaila ble Traboulssi, Dr. Rubi Referring Unavaila ble Traboulssi, Dr. Rubi Attending Unavaila ble Clark, Dr. Curt Alva Primary Care UnaMD Curt Ramirez Primary Care Provider [phone] DO Claire Choi II Attending Provider MD Nehemias Fernandez II Attending Provider Nehemias Fernandez II Unavailable [phone] Curt Clark MD Primary Care Provider Unavailable Curt Clark MD Primary Care Provider MD Curt Clark Primary Care Provider Steph HOLLINGSWORTH, DO Claire J Attending Provider [phone] MD Curt Clark Primary Care Provider RAMAKRISHNA Connolly Attending Provider MD Curt Clark Primary Care Provider Steph HOLLINGSWORTH, DO Claire J Attending Provider MD Curt Clark Attending Provider Curt Clark MD Primary Care Provider MD Curt Clark Primary Care Provider Steph II, DO Claire J Attending Provider [phone] Steph HOLLINGSWORTH, DO Claire J Attending Provider ELICIA RHODES Referring Unavailable CURT CLARK Primary Care Unavailable MD Curt Clark Primary Care Provider [phone] RAMAKRISHNA Connolly Attending Provider Curt Clark MD Primary Care Provider MD Curt Clark Primary Care Provider RAMAKRISHNA Connolly Attending Provider DO Jesse Valdez Emergency Provider MD Pool Buck Admit Provider MD Pool Buck Attending Provider MD Cristiano Diaz Other Provider MD Sherron Li Other Provider MD Pj Montes Other Provider RAMAKRISHNA Pretty Other Provider Belcik Jr, DO [place] L Other Provider MD Trent Patterson Attending Provider Curt Clark MD Primary Care Provider Jesse Valdez DO Emergency Provider Pool Buck MD Admit Provider Joe VELAZQUEZ, Cristiano Ferguson Other Provider Jen VELAZQUEZ, Sherron Other Provider Pj Montes MD Other Provider Kristan Pretty APRN Other Provider Cathy RODRIGUEZ, [place] L Other Provider [phone] Yesenia VELAZQUEZ, Trent Attending Provider Flako Huggins DO Attending Provider Flaok Huggins DO Attending Provider Curt Clark MD Primary Care Provider Misti Connolly APRN Attending Provider [facility], [facility] Emergency Provider [phone] Jonathan Valenzuela MD Admit Provider Jonathan Valenzuela MD Attending Provider [phone] Akin Suarez MD Other Provider Unavailable [facility] Attending Provider Elicia Rhodes MD Referring Provider Curt Clark MD Primary Care Provider Curt Clark MD Primary Care Provider Misti Connolly APRN Attending Provider [place]ad[place] , [place] Emergency Provider Jonathan Valenzuela MD Admit Provider Jonathan Valenzuela MD Attending Provider Kristen Suarez MD Provider Elicia Rhodes MD Attending Provider Elicia Rhodes MD Referring Provider Curt Clark MD Primary Care Provider Misti Connolly APRN Attending Provider Louis Mcadams DO Emergency Provider Jonathan Valenzuela MD Admit Provider Jonathan Valenzuela MD Attending Provider Lopez VELAZQUEZ, Akin Other Provider Elicia Rhodes MD Attending Provider Kendra VELAZQUEZ, Elicia Referring Provider Jerrica Overton APRN Attending Provider Curt Clark MD Primary Care Provider Curt Clark MD Primary Care Provider [phone] LIA VELAZCO Attending Unavailable TRABOULSSI, MOURSALOMEF Attending Unavailable TRABOULSSI, MOURHAF Referring Unavailable CLARK, CURT E Primary Care Unavailable TRABOULSSI, MOURHAF Referring Unavailable CLARK, CURT E Primary Care Unavailable TRABOULSSI, MOURHAF Referring Unavailable CLARK, CURT E Primary Care Unavailable JERRICA OVERTON Attending Unavailable CLARK, CURT E Primary Care Unavailable TRABOULSSI, MOURHAF Attending Unavailable TRABOULSSI, MOURHAF Referring Unavailable CLARK, CURT E Primary Care Unavailable TRABOULSSI, MOURHAF Attending Unavailable TRABOULSSI, MOURHAF Referring Unavailable CLARK, CURT E Primary Care Unavailable Curt Clark MD Primary Care Provider Phillip Arroyo DO Attending Provider [phone] Renetta Mcmanus CMA Attending Provider Unavaila Claire العراقي DO Attending Provider Traboulsaeidi, Mourhaf Referring Unavailable Amber Curt E Primary Care Unavailable Jerrica Overton Admitting Unavailable Jerrica Overton Attending Unavailable Elicia Rhodes Attending Unavailable Elicia Rhodes Referring Unavailable Curt Clark Primary Care Unavailable Elicia Rhodes Admitting Unavailable Curt Clark Primary Care Unavailable Adamowicz II, Claire Hanley Admitting Unavaila ble Adamowicz II, Claire Hanley Attending Unavaila ble YeseniaTrent Attending Unavailable Curt Clark Primary Care Unavailable Cristiano Diaz Consulting Unavaila ble Doamekpor, Pool Patel Admitting Unavailab Sherron Baker Consulting Unavailable Pj Montes Consulting Unavailable Turovskaya, Kristan Consulting Unavailable Cathy Evans, Isaias L Consulting Unavailabl e Lopez, Akin Consulting Unavailable Nicolas Jonathan Admitting Unavailable Luciana Valenzuelal Attending Unavailable Curt Clark Primary Care Unavailable Flako Huggins Admitting Unavailable Flako Huggins Attending Unavailable Tyree PARK Attending Unavailable Tyree PARK Attending Unavailable Allergies Allergy ClassificationReported Allergen(s)Allergy TypeDate of OnsetReaction(s) Facilitylenalidomide (1 source)lenalidomideDrug Otkdpuf15-08-3427Opqh, itchingMercy Health Fairfield Hospitaloxybutynin (1 source)oxybutyninDrug Leawkod41-48-0651Njld, rash, hivesMercy Health Fairfield Hospitalpregabalin (1 source)pregabalinDrug Uybeysq70-41-8220ubzflaOur Lady of Mercy Hospital - [facility] (20 sources)oxybutynin; Translations: [oxybutynin]Drug Fymynnk79-11-5265Mrbhs, Rash, OtherMP-Phill[facility] 250 DO Work Phone: (20 sources)lenalidomide; Translations: [lenalidomide]Drug Nhhhefp37-77-6083 Unknown, Rash, itching, Rash, itchingExecutive Urology of [facility] (20 sources)pregabalin; Translations: [pregabalin]Drug Opdmjxv88-74-5961Olkiftg, double visionExecutive [facility]rology of [facility] (11 sources)pregabalin; Translations: [Lyrica]Drug AllergyDOUBLE VISIONThe [facility] Repository (10 sources)REVILIDPropensity to adverse reactionsMineral Area Regional Medical Center [employer] Other (1 source)lenalidomideDrug Zvptzgj82-92-9706IknGreen Cross Hospital Repository (1 source)oxybutyninDrug Ahjlvqk38-72-2831ZckGreen Cross Hospital Repository (1 source)Allergies ReconciledPropensity to adverse reactionsUnknoDeaconess Incarnate Word Health System [employer] Other (1 source)patient allergy list reviewed by nurse or physiciaPropensity to adverse klywnhvxh76-26-2705Heqmxoz:[facility] HospitalNosaint [facility] [employer] Other (13 sources)Acetaminophen / HYDROcodoneDrug Kzrafee30-38-7122[facility] (13 sources)PregabalinPropensity to adverse jkocigxfs05-66-4899UsqgpIBVL Healthcare (9 sources)lenalidomideDrug Lumnpjg06-50-4928Yaaq, [facility] (1 source)lenalidomideDrug Nprlutd88-20-2398XavymsplzMercy Health Fairfield Hospital Repository (1 source)oxybutyninDrug Cxotrvl99-94-0297KxxmokpqzMercy Health Fairfield Hospital Repository (1 source)pregabalinDrug Nmdxfta40-75-4904LasfmpejeMercy Health Fairfield Hospital Repository Medications Current Medications MedicationDrug Class(es)DatesSig (Normalized)Sig (Original)atorvastatin 40 mg oral tablet (20 sources)HMG-CoA Reductase InhibitorStart: 34-28-7353Xwmslvk Oral, Daily, Refills(s) 0 Start Date: 01/29/20 Status: OrderedStart: 77-08-7392dalq 1 tablet by mouth once dailyStart: 07-14-2017 End: 11-26-6803eiuo 1 tablet by mouth at bedtimeAtorvastatin 20 mg Tablet Discontinued 1 TAB PO Bedtime July 14, 2017 12:00am August 23, 2018 8:42amazithromycin 250 mg oral tablet (5 sources)Macrolide AntimicrobialStart: 42-03-5392Xixlyigrvpkt 250 MG as directed Orally 2 tabs po today, then 1 tab daily x 4 more days for 5 Aug, ActiveStart: 89-70-1410Xgmnijjvxxtz 250 MG Oral Tablet TAKE 2 TABLETS BY MOUTH ON DAY 1 THEN TAKE 1 TABLET BY MOUTH DAILY DAYS 2 THRU 5 UNTIL GONE Quantity: 6 Refills: 0 Ordered: 11-Feb-2022 DO Start : 11-Feb-2022 Complete benzonatate 200 mg oral capsule (4 sources)Non-narcotic AntitussiveStart: 11-50-3406zylk 1 capsule by mouth every eight hoursBenzonatate 200 MG 1 capsule Orally Three times a day for 10 day(s) Sep, ActiveStart: 91-51-4127jtxt 1 capsule by mouth three times daily as neededBenzonatate 100 MG Oral Capsule TAKE ONE CAPSULE BY MOUTH THREE TIMES A DAY NEEDED Quantity: 20 Refills: 0 Ordered: 11-Feb-2022 DO Start : 11-Feb-2022 Completecarvedilol 12.5 mg oral tablet (20 sources)alpha-Adrenergic Valentina, beta-Adrenergic BlockerStart: 04-01-2025 take 1 tablet by mouth once daily at mealtimeStart: 03-20-2025 End: 73-93-0498jpgx 1 tablet by mouth twice dailycarvedilol (Coreg) 6.25 mg tablet Indications: Essential hypertension Take 1 tablet (6.25 mg) by mouth 2 times daily (morning and late afternoon). 180 tablet 3 03/20/2025 05/24/2025 Discontinued (MedList Cleanup)Start: 11-07-2019 End: 95-01-5121lfok 1 tablet by mouth twice daily at mealtimeCarvedilol (Coreg) 12.5 mg tablet Discontinued 12.5 MG PO Twice daily 60 November 07, 2019 1:00am April 01, 2025 3:48pm must administer with a meal/foodStart: 07-14-2017 End: 24-69-4454pbth 1 tablet by mouth twice dailyCarvedilol 6.25 mg Tablet Discontinued 6.25 MG PO Twice daily July 14, 2017 12:00am November 07, 2019 3:50pmStart: 14-79-6623egpi 2 tablets by mouth twice dailycarvedilol 3.125 mg Tab 6.25 mg = 2 tab(s), Oral, BID Start Date: 10/05/16 Status: OrderedStart: 10-47-3577znja 2 tablets by mouth twice dailycarvedilol 3.125 mg Tab 6.25 mg = 2 tab(s), Oral, BID Start Date: 10/05/16 Status: OrderedStart: 33-12-9651nzgc 2 tablets by mouth twice dailycarvedilol 3.125 mg Tab 6.25 mg = 2 tab(s), Oral, BID Start Date: 10/05/16 Status: Orderedtake 1 tablet by mouth twice daily carvedilol (Coreg) 3.125 mg tablet Take 1 tablet (3.125 mg) by mouth 2 times a day. Activecholecalciferol 0.025 mg oral capsule (20 sources)Vitamin DStart: 85-36-3874uhlb 1 capsule by mouth once dailyStart: 08-10-2018 End: 00-53-2508Wxqmwcvvlhvkttj (Vitamin D3) (Vitamin D3) 5,000 unit Tablet Discontinued 1000 UNIT PO Daily August 10, 2018 12:00am January 01, 2025 5:08pmStart: 08-07-0313rkov 1 tablet by mouth once dailyVitamin D3 5000 intl units oral tablet 5,000 International_Unit = 1 tab(s), Oral, Daily, Prophylaxis Start Date: 10/05/16 Status: Orderedtake 1 tablet by mouth once daily cholecalciferol (Vitamin D-3) 25 MCG (1000 UT) tablet Take 1 tablet (25 mcg) by mouth once daily. Activedaratumumab (3 sources)IA83-urztyhnv Cytolytic AntibodyStart: 76-52-8368hlhvquklvxt mg, IV, q6wk, Refills(s) 0 Start Date: 12/17/19 Status: Ordereddocosahexaenoic acid 120 mg / eicosapentaenoic acid 180 mg oral capsule (18 sources)take 1 capsule by mouth twice dailyfish oil concentrate ([place]-3) 120-180 mg capsule Take 1 capsule (1 g) by mouth 2 times a day. Activetake 1 capsule by mouth twice dailyFish Oil 1000 MG Oral Capsule Take 1 capsule twice daily Quantity: 0 Refills: 0 Ordered: 25-Aug-2021 DO Activeferrous sulfate 325 mg delayed release oral tablet (20 sources)Start: 69-03-5454nzua 1 tablet by mouth once dailyStart: 10-14-2024 take 1 tablet by mouth at mealtimeferrous sulfate 325 (65 Fe) MG tablet Take 325 mg by mouth in the morning. Take with meals. 10/14/2024 Activeflecainide acetate 50 mg oral tablet (16 sources)AntiarrhythmicStart: 57-71-6938qdqh 1 tablet by mouth once daily Start: 02-06-2025 End: 69-07-1581fycr 1 tablet by mouth every twelve hoursFlecainide 50 mg tablet Discontinued 50 MG PO Every 12 hours February 11, 2025 12:00am April 01, 2025 3:48pmStart: 02-06-2025 End: 36-56-7864rgdw 1 tablet by mouth in the morningflecainide (Tambocor) 50 MG tablet Take 50 mg by mouth in the morning and 50 mg in the evening. 02/06/2025 02/06/2026 Activeinsulin isophane, human 100 unt/ml injectable suspension (20 sources)Start: 56-08-3826Xsacr: 61-48-5630fenngz 15 [IU] by subcutaneous injection in the morninginsulin NPH, Isophane, (HumuLIN N) 100 UNIT/ML injection Inject 15 Units under the skin in the morning and 15 Units in the evening. Inject before meals. 07/05/2024 ActiveStart: 07-05-2024 End: 57-85-9736Mugwrpk Nph Isoph U-100 Human (Humulin N Nph U-100 Insulin) 100 unit/mL suspension Discontinued 15 UNIT SUBCUT Daily July 05, 2024 1:13pm April 01, 2025 3:48pmStart: 01-04-2024 End: 20-74-7380Yplbihb Nph Isoph U-100 Human (Humulin N Nph U-100 Insulin) 100 unit/mL suspension Discontinued UNIT SUBCUT January 04, 2024 1:00am July 05, 2024 1:15pm FreeTextSi units (using [employer] brand) Subcutaneous 15 units twice a day; Note: Source Status: Taking; Provider: Gabo Devlin KStart: 01-04-2024 End: 52-23-4192Ginwg: 08-10-2018 End: 68-41-6080Foaxiod Nph Isoph U-100 Human (Humulin N Nph Insulin Kwikpen) 100 unit/mL (3 mL) Insulin Pen Discontinued 12 UNIT SUBCUT Every evening August 10, 2018 12:00am January 04, 2024 12:03pmHumuLIN N 100 UNIT/ML 10 units (using [employer] brand) Subcutaneous 15 units twice a day ActiveHumuLIN N 100 UNIT/ML 10 units (using [employer] brand) Subcutaneous 10 UNITS TWICE A DAY Active inject 10 [IU] by subcutaneous injection once daily at bedtimeHumuLIN N 100 UNIT/ML 10 units (using [employer] brand) Subcutaneous qhs Activemagnesium chloride 598 mg delayed release oral tablet (18 sources)Start: 09-19-2024 End: 10-23-5474tleh 1 tablet by mouth once dailymeclizine hydrochloride 12.5 mg oral tablet (12 sources)Antiemetictake 1 tablet by mouth every twelve hoursMeclizine HCl 12.5 MG 1 tablet as needed Orally every 12 hrs for 10 days ActiveOmega 0-Fue-Cru-Fish Oil (Fish Oil) 1,000 (120-180) mg capsule (1 source)Start: 20-90-0799fdag 1 capsule by mouth twice dailyOmega-3 Fatty Acids (FISH OIL PO) (13 sources)[place]-3 Fatty Acids (FISH OIL PO) Take by mouth ActiveRelion insulin (3 sources)Start: 10-25-9173pkbsvl 10 [IU] by subcutaneous injection at bedtime Relion insulin Relion insulin, 10 unit(s), SubCutaneous, Bedtime Start Date: 03/03/21 Status: OrderedXarelto (20 sources)Factor Xa InhibitorStart: 91-08-9502Cvtjkkb Oral Start Date: 12/24/19 Status: OrderedStart: 11-07-2019 End: 86-60-1407xccy 1 tablet by mouth once daily at dinnerRivaroxaban (Xarelto) 15 mg tablet Discontinued 15 MG PO Daily November 07, 2019 1:00am Eligio rosario 2023 5:44pm must administer with evening meal0.25 mg, 0.5 mg dose 1.5 ml semaglutide 1.34 mg/ml pen injector (5 sources)Start: 42-63-1906Spijebj (0.25 or 0.5 MG/DOSE) 2 MG/1.5ML 0.5mg Subcutaneous once weekly for 84 days March, Activesodium bicarbonate 650 mg oral tablet (20 sources)Start: 22-47-3555ipeu 1 tablet by mouth twice dailyStart: 12-25-2024 End: 43-39-7601opre 2 tablets by mouth twice dailySodium Bicarbonate 650 mg tablet Discontinued 1300 MG PO Twice daily December 25, 2024 3:43pm December 25, 2024 3:58pmStart: 07-14-2017 End: 37-75-3714hwxb 1 tablet by mouth twice dailySodium Bicarbonate 650 mg tablet Discontinued 650 MG PO Twice daily December 25, 2024 3:58pm December 25, 2024 3:58pmStart: 07-14-2017 End: 64-47-1954fdln 2 tablets by mouth three times dailySodium Bicarbonate 650 mg Tablet Discontinued 1300 MG PO Three times daily 0 September 18, 2024 1:00am December 25, 2024 3:43pmStart: 07-14-2017 End: 61-45-2606wglj 1 tablet by mouth twice dailySodium Bicarbonate 325 MG Oral Tablet Take 1 tablet twice daily Quantity: 0 Refills: 0 Ordered: 25-Aug-2021 DO Activesulfamethoxazole 800 mg / trimethoprim 160 mg oral tablet (4 sources)Dihydrofolate Reductase Inhibitor Antibacterial, Sulfonamide Antimicrobialtake 1 tablet by mouth every twelve hoursBactrim DS 800-160 MG 1 tablet Orally Twice a day for 5 days ActivetraMADol hydrochloride 50 mg oral tablet (3 sources)Opioid AgonistStart: 62-45-3408vvqd 1 tablet by mouth three times daily as neededTrue Metrix Blood Glucose Test - (20 sources)True Metrix Blood Glucose Test - use with True Metrix Meter E11.9 4 x daily for 90 days ActiveTrue Metrix Blood Glucose Test - use with True Metrix Meter E11.9 4 x daily ActiveVitamin B 12 100 MCG (18 sources)Vitamin B 12 100 MCG as directed Orally once a day Activevitamin b12 1 mg oral tablet (20 sources)Vitamin O52Uffwu: 36-04-8537Xjrut: 80-00-0438Ivhbqiu B-12 1,000 microgram Start Date: 12/24/19 Status: OrderedStart: 05-02-2019 End: 08-68-0506jchk 1 tablet by mouth once dailyCyanocobalamin (Vitamin B-12) 1,000 mcg Tablet Discontinued 1000 MCG PO Daily May 02, 2019 12:00am April 01, 2025 3:48pmCyanocobalamin (VITAMIN B-12 PO) Take by mouth Activetake 1 tablet by mouth every other dayVitamin B12 1000 MCG Oral Tablet Extended Release TAKE 1 TABLET EVERY OTHER DAY Quantity: 0 Refills: 0 Ordered: 25-Aug-2021 DO ActiveVitamin D3 5000 UNIT (20 sources)take 1 capsule by mouth once dailytake 1 capsule by mouth once daily Vitamin D3 5000 UNIT 1 capsule Orally Daily Active (20 sources)Start: 60-42-8592Tegyr: 03-15-2018 End: 17-43-4650Qmdsq: 07-14-2017 End: 46-31-4545Wdzhb: 07-14-2017 End: 07-05-2024 Completed/Discontinued Medications MedicationDrug Class(es)DatesSig (Normalized)Sig (Original)acetaminophen 325 mg / HYDROcodone bitartrate 5 mg oral tablet (20 sources)Opioid AgonistStart: 03-15-2018 End: 99-79-3675ycqi 1 tablet by mouth every four to six hours as needed for pain Hydrocodone-Acetaminophen 5-325 mg Tablet Discontinued 1 TAB PO EVERY 4-6 HOURS as needed for Pain March 15, 2018 12:00am July 04, 2018 11:54amStart: 03-15-2018 End: 25-32-5751umkqrcdcf 400 mg oral tablet (20 sources)Herpesvirus Nucleoside Analog DNA Polymerase Inhibitor, Herpes Simplex Virus Nucleoside Analog DNA Polymerase Inhibitor, Herpes Zoster Virus Nucleoside Analog DNA Polymerase InhibitorStart: 01-02-2024 End: 11-53-6984Qsybcoirv 400 mg tablet Discontinued 0 .ROUTE .COMPLEX 180 January 02, 2024 1:10pm November 12:39pm TAKE 1 TABLET TWICE A DAY Start: 07-14-2017 End: 99-90-8923vwvw 1 tablet by mouth once dailyAcyclovir 400 mg Tablet Discontinued 1 TAB PO daily November 29, 2017 5:03pm March 23, 2018 3:55pm Start: 10-05-2016 End: 72-23-5904eefx 1 tablet by mouth twice dailyAcyclovir 400 mg tablet Discontinued 400 MG PO Twice daily November 07, 2019 2:31pm January 02, 2024 1:10pmamLODIPine 5 mg oral tablet (20 sources)Dihydropyridine Calcium Channel BlockerStart: 11-12-2023 End: 27-86-5603bxmg 1 tablet by mouth once dailyAmlodipine 5 mg tablet Discontinued 5 MG PO Daily August 20, 2024 10:49am February 11, 2025 11:01am Start: 89-69-9442szFUEDMwye Besylate 5 MG Oral Tablet Quantity: 90 Refills: 0 Ordered: 16-May-2022 DO Start : 17-Nov-2021 CompleteStart: 43-48-8867Ffizh: 09-20-2018 End: 36-30-0165cskj 5 mg by mouth once dailyAmlodipine 10 mg Tablet Discontinued 5 MG PO Daily September 20, 2018 1:00am July 19, 2023 10:37amStart: 09-20-2018 End: 20-78-2321ohob 5 mg by mouth once dailyAmlodipine Discontinued 5 MG PO Daily September 20, 2018 12:00am July 19, 2023 9:37amStart: 07-14-2017 End: 62-60-6652zyxh 1 tablet by mouth once dailyAmlodipine 2.5 mg Tablet Discontinued 1 TAB PO daily July 14, 2017 12:00am December 21, 2017 10:10am amoxicillin 500 mg oral capsule (20 sources)Penicillin-class AntibacterialStart: 08-10-2018 End: 34-15-5281twrx 1 capsule by mouth every eight hoursAmoxicillin 500 mg capsule Discontinued 500 MG PO Q8H August 10, 2018 12:00am August 23, 2018 8:42amapixaban 5 mg oral tablet (20 sources)Factor Xa InhibitorStart: 12-19-2024 End: 59-12-3058sgml 2.5 mg by mouth twice dailyApixaban (Eliquis) 5 mg tablet Discontinued 2.5 MG PO Twice daily December 19, 2024 1:00am January 01, 2025 5:07pm finish Xarelto supply that you have; start Eliquis after thatStart: 11-01-2024 End: 60-09-1105jape 1 tablet by mouth twice dailyStart: 09-19-2024 End: 53-37-6380rdws 1 tablet by mouth twice dailyApixaban (Eliquis) 5 mg tablet Discontinued 5 MG PO Twice daily 180 90 September 19, 2024 1:00am December 19, 2024 3:56pm finish Xarelto supply that you have; start Eliquis after thataspirin 81 mg chewable tablet (20 sources)Platelet Aggregation Inhibitor, Nonsteroidal Anti-inflammatory Drug Start: 10-18-2018 End: 33-32-5108qcia 1 tablet by mouth once dailyAspirin 81 mg Tablet,Chewable Discontinued 81 MG PO Daily October 18, 2018 1:00am October 30, 2024 3:10pm Start: 07-14-2017 End: 49-69-3651msjx 1 tablet by mouth once dailyAspirin 81 mg Tablet,Delayed Release (Dr/Ec) Discontinued 81 MG PO Daily 7 August 11, 2018 12:00am August 23, 2018 8:42amStart: 96-67-7043vnkt 81 mg by mouth once dailyaspirin 81 mg, Oral, Daily Start Date: 10/05/16 Status: Orderedcefdinir 300 mg oral capsule (20 sources)Cephalosporin AntibacterialStart: 04-12-2024 End: 78-09-8193xbqd 1 capsule by mouth twice dailyCefdinir 300 mg capsule Discontinued 300 MG PO Twice daily April 12, 2024 12:00am May 31, 2024 11:27amStart: 07-99-6281Opjnuuug 300 MG as directed Orally bid for 7 days Sep, Activecephalexin 250 mg oral capsule (20 sources)Cephalosporin AntibacterialStart: 01-08-2020 End: 41-95-4627xwrk 1 capsule by mouth once dailyCephalexin 250 mg capsule Discontinued 250 MG PO Daily January 08, 2020 1:00am June 16, 2021 9:04am Start: 02-15-2018 End: 38-26-6685ytyn 1 capsule by mouth once dailyCephalexin 250 mg Capsule Discontinued 250 MG PO Daily February 15, 2018 12:00am March 22, 2018 8:44am ciprofloxacin 500 mg oral tablet (2 sources)Quinolone AntimicrobialStart: 03-86-8552Nkeaj 500 mg Tab 500 mg = 1 tab(s), Oral, As Directed, Patient to take 1 tab the day before procedure and the 2nd tab the day of procedure once completed, # 2 tab(s), Refills(s) 0, Pharmacy: [facility] 1155, 167, cm, 01/10/23 11:12:00 EST, Height/Length Dosing, 8... Start Date: 01/10/23 Status:OrderedStart: 72-19-1388Gkrmourewjxgf HCl - 0.3 % Ophthalmic Solution Quantity: 5 Refills: 0 Ordered: 11-Feb-2022 DO Start : 11-Feb-2022 Completecitric acid 128 mg/ml / sodium citrate 98 mg/ml oral solution (20 sources)Calculi Dissolution Agent, Anti-coagulantStart: 12-25-2024 End: 27-28-9531vxys 1 mL by mouth once dailySodium Citrate-Citric Acid (Oracit) 490-640 mg/5 mL solution Discontinued 5 ML PO Daily 473 December 25, 2024 1:00am April 01, 2025 3:48pm administer with a meal and dilute/mix in a full glass of waterStart: 23-82-5931Itnsb: 07-05-2024 End: 67-52-1833dqfk 1 mL by mouth once daily at bedtime as neededSodium Citrate- Citric Acid (Oracit) 490-640 mg/5 mL solution Discontinued 10 ML PO Daily at bedtimeas needed for Kidney stones July 05, 2024 1:14pm September 19, 2024 5:44pmStart: 45-02-8260iqae 2 capsules by mouth once dailyOracit oral solution See Instructions, 3,600 mL, Refill(s) 6, Take 2 cap fulls 4x/day, [place] #72, 167, cm, 01/09/24 9:13:00 EST, Height/Length Dosing, 85.7, kg, 01/09/24 9:13:00 EST,Weight Dosing Start Date: 01/09/24 Status: OrderedStart: 10-06-2021 End: 10-71-3918qqye 1 mL by mouth onceSodium Citrate-Citric Acid (Oracit) 490- 640 mg/5 mL Solution Discontinued 10 ML PO Once October 06, 2021 1:00am October 06, 2021 9:56amStart: 42-46-2968Tjzcfr oral solution Refill(s) 0 Start Date: 09/04/21 Status: OrderedStart: 06-16-2021 End: 92-84-0857hhwu 1 mL by mouth four times dailySodium Citrate-Citric Acid (Oracit) 490-640 mg/5 mL Solution Discontinued 10 ML PO Four times dailyAugust 2020 12:00am July 05, 2024 1:15pmStart: 06-16-2021 End: 41-09-3580Vbyjza 490-640 MG/5ML 10 ml after meals and at bedtime diluted with 1 to 3 ounces of water or juiceOrally bid for 90 day(s) Activeclopidogrel 75 mg oral tablet (20 sources)P2Y12 Platelet InhibitorStart: 08-11-2018 End: 79-82-5639nmpb 1 tablet by mouth once dailyClopidogrel (Plavix) 75 mg tablet Discontinued 75 MG PO Daily August 23, 2018 8:41am November 07, 2019 3:50pmcyclobenzaprine hydrochloride 10 mg oral tablet (20 sources)Muscle RelaxantStart: 11-04-2020 End: 21-40-7101ztyz 1 tablet by mouth three times daily as needed for pain Cyclobenzaprine 10 mg Tablet Discontinued 10 MG PO Three times daily as needed for Pain 2019 1:00am July 19, 2023 10:37amdocusate sodium 100 mg oral capsule (16 sources)Start: 10-30-2024 End: 85-84-2057sjhl 1 capsule by mouth once daily as needed for constipation Docusate Sodium (Colace) 100 mg capsule Discontinued 100 MG PO Daily as needed for constipation October 30, 2024 1:00am January 02, 2025 9:09amDULoxetine 20 mg delayed release oral capsule (20 sources)Serotonin and Norepinephrine Reuptake InhibitorStart: 05-31-2024 End: 34-03-1790ducq 1 capsule by mouth once dailyDuloxetine (Cymbalta) 20 mg capsule,delayed release(DR/EC) Discontinued 20 MG PO Daily May 31, 2024 12:00am July 05, 2024 1:11pmergocalciferol 1.25 mg oral capsule (20 sources)Provitamin D2 CompoundStart: 07-14-2017 End: 12-86-1791ywos 1 capsule by mouth once dailyErgocalciferol (Vitamin D2) (Vitamin D2) 50,000 unit Capsule Discontinued 1 CAP PO daily July 14, 2017 12:00am August 10, 2018 11:37amStart: 07-14-2017 End: 44-09-6856oqgodlgdyxzc 10 mg oral tablet (18 sources)Serotonin Reuptake InhibitorStart: 10-30-2024 End: 03-31-5313tcpa 1 tablet by mouth once dailyEscitalopram Oxalate (Lexapro) 10 mg tablet Discontinued 10 MG PO Daily January 01, 2025 1:00am January 02, 2025 9:09amFish Oils (20 sources)Start: 07-14-2017 End: 08-35-7315giek 1 capsule by mouth twice dailyFish Oil 500 mg capsule Discontinued 1200 CAP PO Twice daily July 14, 2017 12:00am June 1:12pmStart: 07-14-2017 End: 55-59-5094zvev 1 capsule by mouth twice dailyFish Oil 500 mg capsule Discontinued 1200 CAP PO Twice daily July 13, 2017 11:00pm June 12:12pmStart: 07-14-2017 End: 23-44-9475rpac 1 capsule by mouth twice dailyFish Oil Discontinued 1200 CAP PO Twice daily July 13, 2017 11:00pm July 05, 2024 12:12pmStart: 07-14-2017 End: 39-66-4381dols 1 capsule by mouth twice dailyFish Oil Discontinued 1200 CAP PO Twice daily July 14, 2017 12:00am July 05, 2024 1:12pmStart: 05-87-2234mlfk 1 capsule by mouth twice dailyFish Oil Active 1200 CAP PO Twice daily July 13, 2017 11:00pmStart: 34-01-6244ubxu 1 capsule by mouth twice dailyFish Oil Active 1200 CAP PO Twice daily July 14, 2017 12:00amStart: 09-90-9133pumx 1 capsule by mouth twice dailyFish Oil 1000 mg oral capsule 1,000 mg = 1 cap(s), Oral, BID, Prophylaxis Start Date: 10/05/16 Status: Orderedtake 1 capsule by mouth twice dailytake 1 capsule by mouth twice dailyFish Oil 1000 MG 1 capsule Orally Twice a day Activefurosemide 40 mg oral tablet (16 sources)Loop DiureticStart: 12-25-2024 End: 04-23-1514Dfpwlodcgu 40 mg tablet Discontinued 40 MG PO Every 48 hours 180 December 25, 2024 3:56pm February 11, 2025 11:02amStart: 12-22-2024 End: 86-83-6526adxb 1 tablet by mouth once dailyFurosemide 40 mg Tablet Discontinued 40 MG PO Daily at 0800 30 December 22, 2024 1:00am December 25, 2024 3:57pmtake 1 tablet by mouth every other dayfurosemide (Lasix) 20 mg tablet Take 1 tablet (20 mg) by mouth every other day. Active3 ml insulin lispro 100 unt/ml pen injector (8 sources)Insulin AnalogStart: 07-14-2017 End: 39-27-7144Zeiwlwq Lispro (Humalog Kwikpen Insulin) 100 unit/mL Insulin Pen Discontinued 0 UNIT SUBCUT Before meals and at bedtime as needed for DIABETES Protocol: *If the corrective scale dose has been administered within the past 4 hours, do not use corrective scale again unless approved by prescriber* Condi tion: Dose/Route: Instructions: Condition: Fingerstick Blood Glucose Dose/Route: Insulin Units Condition: mg/dl Dose/Route: 1 unit Condition: mg/dl Dose/Route: 2 units Condition: mg/dl Dose/Route: 3 units Condition: mg/dl Dose/Route: 4 units Condition: mg/dl Dose/Route: 5 units Condition: mg/dl Dose/Route: 6 units Condition: mg/dl Dose/Route: 7 units Condition: mg/dl Dose/Route: 8 units Condition: mg/dl Dose/Route: 9 units Condition: mg/dl Dose/Route: 10 units Dose/Route: 11 units Condition: Greater than or = 400 mg/dl Instructions: Call Provider Condition: Custom Scale 1:___ Instructions: GIVE 1 UNIT OF ASPART FOR EVERY ___MG GLUCOSE Instructions: STARTING AT 150MG AT BG CHECKS July 14, 2017 12:00am January 04, 2024 12:03pm SLIDING SCALE Please contact the information source for Protocol details.Start: 96-27-7042Ilrdqwt Lispro (Humalog Kwikpen Insulin) 100 unit/mL Insulin Pen Active 0 unit SUBCUT Before meals and at bedtime July 14, 2017 12:00am SLIDING SCALEHumaLOG KwikPen 100 UNIT/ML scale #1 Subcutaneous before meals tid Not-TakingInsulin Lispro (Humalog Kwikpen Insulin) 100 unit/mL Insulin Pen (16 sources)Start: 07-14-2017 End: 19-71-0578Ypdinto Lispro (Humalog Kwikpen Insulin) 100 unit/mL Insulin Pen Discontinued 0 UNIT SUBCUT Before meals and at bedtime as needed for DIABETES July 14, 2017 12:00am January 04, 2024 12:03pm SLIDING SCALE Please contact the information source for Protocol details.Start: 07-14-2017 End: 81-36-5797Kqaaeyr Lispro (Humalog Kwikpen Insulin) 100 unit/mL Insulin Pen Discontinued 0 UNIT SUBCUT Before meals and at bedtime as needed for DIABETES July 13, 2017 11:00pm January 04, 2024 11:03am SLIDING SCALE Please contact the information source for Protocol details.Start: 07-14-2017 End: 23-75-5222Uwgplkh Lispro (Humalog Kwikpen Insulin) 100 unit/mL Insulin Pen Discontinued 0 UNIT SUBCUT Before meals and at bedtime July 14, 2017 12:00am January 04, 2024 12:03pm SLIDING SCALEStart: 07-14-2017 End: 22-80-9990Jruekdo Lispro (Humalog Kwikpen Insulin) 100 unit/mL Insulin Pen Discontinued 0 UNIT SUBCUT Before meals and at bedtime July 13, 2017 11:00pm January 04, 2024 11:03am SLIDING SCALEStart: 21-78-8117Hummlpy Lispro (Humalog Kwikpen Insulin) 100 unit/mL Insulin Pen Active 0 unit SUBCUT Before meals and at bedtime July 14, 2017 12:00am SLIDING SCALEStart: 07-14-2017 Insulin Lispro (Humalog Kwikpen Insulin) 100 unit/mL Insulin Pen Active 0 unit SUBCUT Before meals and at bedtime July 13, 2017 11:00pm SLIDING SCALE linagliptin 5 mg oral tablet (20 sources)Dipeptidyl Peptidase 4 InhibitorStart: 01-08-2020 End: 29-64-0364efpe 1 tablet by mouth once dailyLinagliptin (Tradjenta) 5 mg tablet Discontinued 5 MG PO Daily January 08, 2020 1:00am September 09, 2020 10:04amOmega 3-Lxe-Ksp-Fish Oil (Fish Oil) 1,000 mg (120 mg-180 mg) capsule (9 sources)Start: 07-05-2024 End: 92-69-0562Rtxfe 1-Zyv-Gfc-Fish Oil (Fish Oil) 1,000 mg (120 mg-180 mg) capsule Discontinued 1 CAP PO Every 48hours July 05, 2024 12:00am April 01, 2025 3:48pmStart: 64-32-0050Vwqeh 8-Yer-Pkt-Fish Oil (Fish Oil) 1,000 mg (120 mg-180 mg) capsule Active 1 CAP PO Every 48 hoursAugust 2023 11:00pmStart: 05-24-4656Bwncc 8-Cdj-Qty-Fish Oil (Fish Oil) 1,000 mg (120 mg-180 mg) capsule Active 1 CAP PO Every 48 hoursAugust 2023 12:00amomeprazole 20 mg delayed release oral capsule (19 sources)Proton Pump InhibitorStart: 10-25-2024 End: 73-11-3074ngjo 1 capsule by mouth once dailyOmeprazole 20 mg capsule,delayed release(DR/EC) Discontinued 20 MG PO Daily October 30, 2024 1:00am December 25, 2024 3:42pm24 hr oxybutynin chloride 10 mg extended release oral tablet (20 sources)Cholinergic Muscarinic AntagonistStart: 02-15-2018 End: 40-53-6205wzzd 1 tablet by mouth once dailyOxybutynin Chloride 10 mg Tablet Extended Release 24hr Discontinued 10 MG PO Daily February 15, 2018 12:00am March 22, 2018 8:43ampredniSONE 20 mg oral tablet (20 sources)Start: 01-02-2021 End: 35-59-8961dzem 1 tablet by mouth once dailyPrednisone 20 mg Tablet Discontinued 20 MG PO Daily January 02, 2021 1:00am May 19, 2021 8:58am 20mg PO daily for two days starting the day after each Daratumumab/Hyaluronidase dose.Start: 07-14-2017 End: 57-43-9432jlxb 1 tablet by mouth once dailyPrednisone 20 mg Tablet Discontinued 1 TAB PO As Directed July 14, 2017 12:00am May 18, 2018 8 :33am once daily on and Fridays after chemopredniSONE 50 MG Oral for 5 Days ActivePROCRIT INJECTION - 1000 units (20 sources)Start: 25-15-6373LUMPLHK INJECTION - 1000 units Jun, 16615 unitsStart: 99-50-5199XZBUVFO INJECTION - 1000 units Jun,19990 U raNITIdine 150 mg oral tablet (19 sources)Histamine-2 Receptor AntagonistStart: 03-15-2018 End: 04-92-3408cmpx 1 capsule by mouth once daily at bedtimeRanitidine Hcl 150 mg Capsule Discontinued 150 MG PO Daily at bedtime March 15, 2018 12:00am July 04, 2018 11:55amStart: 03-15-2018 End: 19-83-5233cqzx 150 mg by mouth once daily at bedtimeRanitidine Hcl Discontinued 150 MG PO Daily at bedtime March 14, 2018 11:00pm July 04, 2018 10:55amtriamcinolone acetonide 40 mg/ml injectable suspension (15 sources)CorticosteroidStart: 58-36-7217Pkyjxtg-40 March, 20 mgVitamin D3 5000 intl units oral tablet (2 sources)Start: 89-24-8966pkxb 1 tablet by mouth once dailyVitamin D3 5000 intl units oral tablet 5,000 International_Unit = 1 tab(s), Oral, Daily, Prophylaxis Start Date: 10/05/16 Status: Ordered Problems Active Problems Problem ClassificationProblemDateDocumented DateEpisodic/ChronicAbdominal pain (12 sources)Abdominal pain; Translations: [Unspecified abdominal pain]Episodic Acute and unspecified renal failure (13 sources)Anemia secondary to renal failure; Translations: [Anemia in CKD (chronic kidney disease)]ChronicAcute cerebrovascular disease (20 sources)Cerebrovascular accident; Translations: [Cerebellar stroke]Onset: 401629-84-8462AygiphcCkjituc disorders (16 sources)Anxiety; Translations: [Anxiety disorder, unspecified]11-09-2024 ChronicAortic; peripheral; and visceral artery aneurysms (20 sources)Ascending aorta dilatation; Translations: [Thoracic aortic ectasia] Onset: 345840-67-5673MngiirdWwazctkdp and vision defects (19 sources)Diplopia; Translations: [Diplopia]Onset: EpisodicCalculus of urinary tract (20 sources)Kidney stone; Translations: [Calculus of kidney]Onset: 08-06-2014 Resolved: 83-01-6844HhgogttrUyetuui dysrhythmias (20 sources)Persistent atrial fibrillation; Translations: [Atrial fibrillation] Onset: 681343-58-8089AbpizxxLwdoxix dysrhythmias (20 sources)Palpitations; Translations: [Palpitations]84-44-7972KwsvtefrGsljnld kidney disease (20 sources)Chronic kidney disease stage 3; Translations: [Chronic kidney disease, Stage III (moderate)]Onset: 02-13-2015 Resolved: 36-51-3355BolkumxAktbsvz kidney disease (2 sources)Chronic kidney disease; Translations: [Chronic kidney disease, stage 3a (Multi)]Onset: 32-22-4735Iyfiesn obstructive pulmonary disease and bronchiectasis (13 sources)Bronchitis; Translations: [Bronchitis, not specified as acute or chronic]EpisodicConditions associated with dizziness or vertigo (20 sources)Dizziness; Translations: [Dizziness and giddiness]Onset: 09-23-2017 52-59-5856HnujpjwwLlaflchpan heart failure; nonhypertensive (20 sources)Heart failure; Translations: [Heart failure, unspecified]Onset: 177014-76-1583SmfcgcsUogntsw on above:[employer] Consultant is Dr. Rhodes Deficiency and other anemia (20 sources)Anemia in chronic kidney disease; Translations: [Anemia in chronic kidney disease]ChronicDeficiency and other anemia (20 sources)Anemia; Translations: [Anemia, unspecified]26-36-5401Ewyzvrkf Deficiency and other anemia (20 sources)Nutritional anemia; Translations: [Vitamin B12 deficiency anemia, unspecified]55-98-2263UhnrydfzXodtfqibeq and other anemia (12 sources)Anemia, unspecified; Translations: [Anemia, unspecified]07-13-2022 EpisodicDeficiency and other anemia (12 sources)Vitamin B12 deficiency anemia, unspecified; Translations: [Other vitamin B12 deficiency anemia]76-87-3360VzfnzdhaUfrosqvp mellitus with complications (20 sources)Disorder of kidney due to diabetes mellitus; Translations: [Type 2 diabetes mellitus with diabetic nephropathy]Onset: 09-30-2021 Resolved: 51-75-1732AvpidmcZtfoizii mellitus without complication (20 sources)Diabetes mellitus; Translations: [Diabetes mellitus without mention of complication, type II or unspecified type, not stated as uncontrolled]Onset: 340041-87-7947TegkkreCyviyojr mellitus without complication (20 sources)Glycosuria; Translations: [Glycosuria]Onset: 14-02-8901Prbkhcvs Diseases of mouth; excluding dental (11 sources)Lesion of oral mucosa; Translations: [Other lesions of oral mucosa] EpisodicDisorders of lipid metabolism (20 sources)Hyperlipidemia; Translations: [Other and unspecified hyperlipidemia] Onset: 027923-42-1164ArjcavdTnjsbfvwd hypertension (20 sources)Hypertensive disorder; Translations: [Unspecified essential hypertension]Onset: 223422-89-7729IjjbxeaNbhtqsemnfvfiwhl hemorrhage (20 sources)Gastrointestinal hemorrhage; Translations: [Gastrointestinal hemorrhage, unspecified]Onset: 919903-35-9167JhxmdwbiAojfpqujjabxo symptoms and ill-defined conditions (14 sources)Urge incontinence; Translations: [Urge incontinence of urine]Onset: 11-93-3664HnpnszbZukvzqdrdnsnn symptoms and ill-defined conditions (20 sources)Retention of urine; Translations: [Retention of urine, unspecified] Onset: 09-30-2021 Resolved: 52-90-8795UejosmqpUifql valve disorders (20 sources)Aortic incompetence, non-rheumatic ; Translations: [Aortic valve disorders]Onset: 606133-98-5447IenzwnlXnkbvyekjwax with complications and secondary hypertension (20 sources)Chronic kidney disease due to hypertension; Translations: [Hypertensive chronic kidney disease withstage 1 through stage 4 chronic kidney disease, or unspecified chronic kidney disease]Onset: 09-30-2021 Resolved: 85-13-4208AhauswxCdczskxxpqpn; infection of eye (except that caused by tuberculosis or sexually transmitteddisease) (11 sources)Conjunctivitis; Translations: [Unspecified conjunctivitis]Episodic Intrauterine hypoxia and asphyxia (2 sources)Metabolic acidemia, unspecifiedEpisodicMaintenance chemotherapy; radiotherapy (1 source)Encounter for antineoplastic chemotherapy; Translations: [ENCOUNTER FOR ANTINEOPLASTIC CHEMO]Onset: 03-78-4486FjkekytInnr disorders (20 sources)Depression; Translations: [Depressive disorder]Onset: 11-29-2014 03-83-1951IdqvofhQyavoitf myeloma (20 sources)Multiple myeloma; Translations: [Multiple myeloma, without mention of having achieved remission]Onset: 08-06-2014 Resolved: 212520-78-6870JgmgdwcMrbqranupjn deficiencies (20 sources)Vitamin D deficiency; Translations: [Vitamin D deficiency, unspecified]Onset: 09-30-2021 Resolved: 03-26-8985FwisiiuGoaarhymaue deficiencies (20 sources)Cobalamin deficiency; Translations: [Deficiency of other specified B group vitamins]29-04-9308JsefyxstSawjn aftercare (20 sources)Drug therapy finding; Translations: [snf (current) use of systemic steroids]EpisodicOther aftercare (20 sources)Long-term current use of insulin; Translations: [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 insulin]Onset: 676160-02-9857WnkotunuPakqx aftercare (1 source)snf (current) use of aspirin; Translations: [PRISON CURRENT USE OF ASPIRIN]Onset: 23-13-6861NqijtqqyRytck aftercare (1 source)Other mcfp (current) drug therapy; Translations: [OTH PRISON CURRENT DRUG THERAPY]Onset: 71-24-3188DcuvurqwBjuqd aftercare (1 source)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 insulin; Translations: [MUSEUM ARCHIVIST CURRENT USE OF INSULIN]Onset: 09-31-2691JuslcuknWsbjm aftercare (19 sources)Long-term current use of steroid; Translations: [snf (current) use of systemic steroids]82-64-6282LylrpzurYhcgc aftercare (6 sources)Long-term current use of anticoagulant; Translations: [snf (current) use of anticoagulants]Onset: 211004-83-1525EekdmhlzGullu aftercare (1 source)Long-term current use of systemic steroid; Translations: [snf (current) use of systemic steroids]11-02-7449ZjaiybzcZeggx circulatory disease (1 source)Personal history of transient ischemic attack (TIA), and cerebral infarction without residual deficits; Translations: [PERS HX TIA AND CI NO RESID DEFICIT]Onset: 18-91-3588HzjuruewYzcut circulatory disease (11 sources)Elevated blood-pressure reading without diagnosis of hypertension; Translations: [Elevated blood-pressure reading, without diagnosis of hypertension]EpisodicOther circulatory disease (3 sources)Low blood pressure; Translations: [Hypotension, unspecified] 90-55-3093WegazxsoYqmer circulatory disease (2 sources)Hypotension, unspecified; Translations: [Hypotension, unspecified] 02-46-4573EknponoeOvilj connective tissue disease (20 sources)Monoparesis - leg; Translations: [Other symptoms and signs involving the musculoskeletal system]38-31-0557OebqlkclAoezx connective tissue disease (16 sources)Other symptoms and signs involving the musculoskeletal system; Translations: [Other musculoskeletalsymptoms referable to limbs]Onset: 623209-40-2447SkdaypxuQgarv connective tissue disease (13 sources)Acquired trigger finger; Translations: [Trigger finger, left middle finger]EpisodicOther connective tissue disease (11 sources)Disorder of musculoskeletal system; Translations: [Other symptoms and signs involving the musculoskeletal system]EpisodicOther diseases of kidney and ureters (20 sources)Hyperparathyroidism due to renal insufficiency; Translations: [Secondary hyperparathyroidism of renal origin]67-76-3293NkxzsfrHmfyy diseases of kidney and ureters (19 sources)Secondary hyperparathyroidism of renal origin; Translations: [Secondary hyperparathyroidism (of renal origin)]Onset: 09-30-2021 Resolved: 82-20-7837AareiimWpchi diseases of kidney and ureters (20 sources)Secondary hyperparathyroidism; Translations: [Secondary hyperparathyroidism of renal origin]88-51-6722QmvllshWxadl ear and sense organ disorders (20 sources)Hearing loss; Translations: [Unspecified hearing loss, unspecified ear]89-09-9438XgihbvtTudqi ear and sense organ disorders (12 sources)Unspecified hearing loss, unspecified ear; Translations: [Unspecified hearing loss]93-24-7973RzqgddkNeeei ear and sense organ disorders (1 source)Conductive hearing loss; Translations: [Unspecified conductive hearing loss]Onset: 96-21-5336RwwsjdeHlzgj endocrine disorders (20 sources)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; Translations: [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]81-36-5979MlsfiyoLssgh lower respiratory disease (20 sources)Dyspnea; Translations: [Dyspnea, unspecified]55-19-8945DhupmipqUbdii nervous system disorders (20 sources)Abnormal gait; Translations: [Unsteadiness on feet]Onset: 03-05-2024 43-18-2344TxjrtzxpKzmml nervous system disorders (20 sources)Unsteadiness on feet; Translations: [Abnormality of gait]07-13-2022 EpisodicOther nervous system disorders (20 sources)Impairment of balance; Translations: [Other abnormalities of gait and mobility]35-14-8233ZqttpyubVpmos nervous system disorders (1 source)Other abnormalities of gait and mobilityEpisodicOther nervous system disorders (7 sources)Anesthesia of skin; Translations: [Disturbance of skin sensation] 40-86-2155LyjoqrfgEhiey nervous system disorders (1 source)Numbness of face; Translations: [Anesthesia of skin]20-61-5729Kvjdymel Other non-traumatic joint disorders (7 sources)Pain in left knee; Translations: [PAIN IN LEFT KNEE]Onset: 03-16-2023 EpisodicOther non-traumatic joint disorders (7 sources)Pain in unspecified shoulder; Translations: [Pain in joint, shoulder region]08-68-4461BkoauvnuJdfif non-traumatic joint disorders (1 source)Shoulder pain; Translations: [Pain in unspecified shoulder]08-12-2025 EpisodicOther nutritional; endocrine; and metabolic disorders (20 sources)Body mass index 30+ - obesity; Translations: [Obesity, unspecified] Onset: 689531-33-9874OxanuqoXasfb nutritional; endocrine; and metabolic disorders (5 sources)Obesity; Translations: [Obesity, unspecified]ChronicOther nutritional; endocrine; and metabolic disorders (12 sources)Hypomagnesemia; Translations: [Hypomagnesemia]12-91-9923XeimauzXpngt nutritional; endocrine; and metabolic disorders (3 sources)Hypomagnesemia; Translations: [Disorders of magnesium metabolism] 70-78-8244PmoayysNvhbd nutritional; endocrine; and metabolic disorders (2 sources)Body mass index (BMI) 31.0-31.9, adult; Translations: [Body mass index (BMI) 31.0-31.9, adult]Onset: 82-64-5719AetzpzbSevso nutritional; endocrine; and metabolic disorders (2 sources)Body mass index (BMI) 32.0-32.9, adult; Translations: [Body mass index (BMI) 32.0-32.9, adult]Onset: 54-05-1771VujjmauDbajb nutritional; endocrine; and metabolic disorders (3 sources)Body mass index 25-29 - overweight; Translations: [Body Mass Index 29.0-29.9, adult]EpisodicOther nutritional; endocrine; and metabolic disorders (20 sources)Overweight; Translations: [Overweight]EpisodicOther screening for suspected conditions (not mental disorders or infectious disease) (11 sources)Coag./bleeding tests abnormal; Translations: [Abnormal coagulation profile]EpisodicOther upper respiratory disease (11 sources)Seasonal allergic rhinitis; Translations: [Other seasonal allergic rhinitis]Onset: 00-99-8326TvcpnblFjvbg upper respiratory infections (11 sources)Acute pharyngitis; Translations: [Acute pharyngitis, unspecified] EpisodicPulmonary heart disease (20 sources)Secondary pulmonary hypertension; Translations: [Other chronic pulmonary heart diseases]Onset: 723023-62-1968FgwwowcVfzbnbks codes; unclassified (1 source)Acquired absence of both cervix and uterus; Translations: [ACQUIRED ABSENCE BOTH CERVIX AND UTERUS]Onset: 76-40-0773SjtcrnweLzaojqpz codes; unclassified (1 source)Acquired absence of other specified parts of digestive tract; Translations: [ACQ ABSENCE OTH PART DIGESTV TRACT]Onset: 24-89-4842Xcwbdpaj Residual codes; unclassified (10 sources)Never smoked tobacco; Translations: [Other specified health status] Onset: 389228-69-9824YdkvjhsiTfizntdf codes; unclassified (9 sources)Body fluid retention; Translations: [Edema, unspecified]12-19-2024 EpisodicResidual codes; unclassified (8 sources)Edema, unspecified; Translations: [Other fluid overload]12-19-2024 EpisodicSecondary malignancies (1 source)Secondary malignant neoplasm of bone; Translations: [SECONDARY MALIGNANT NEOPLASM BONE]Onset: 30-87-6666CunspwvQbxzxsm (1 source)Syncope and collapseEpisodicTransient cerebral ischemia (14 sources)Transient cerebral ischemia; Translations: [Unspecified transient cerebral ischemia]Onset: 746854-90-2855OtluzhoVcgglkncdooz (3 sources)Drug therapy ybitdhs01-05-4316Mebnvodejiqc (1 source)ACIDOSIS UNSPECIFIED; Translations: [ACIDOSIS UNSPECIFIED]Onset: 35-21-3536Xeozhbzllrhl (2 sources)CONTACT W/AND (SUSP) EXPOS COVID-19; Translations: [CONTACT W/AND (SUSP) EXPOS COVID-19]Onset: 78-00-3350Rlicjwlnaetw (11 sources)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); Translations: [Post COVID-19 condition, unspecified]Unclassified (2 sources)A [facility] screening has identified you as FRAIL or AT RISK FOR FRAILTY. This puts you at a higher risk for infection, illness, falls, and other injuries. Here are four ways to help you reduce your risk of frailty: 1. IDENTIFY EARLY SIGNS OF FRAILTY Discuss contributing factors and concerns with your doctor 2. BE ACTIVE Walking and light strengthening exercises will help reduce weakness 3. EAT WELL Aim for three healthy meals a day that are high in protein 4. THINK POSITIVE Keep your mind active by being sociable and continuing to learn References: Stay Strong: Four Ways to Beat the Frailty Risk [email or web address]-[email or web address] [email or web address]-bw-lzrb-the-fra [email or web address] (2 sources)EKG visitOnset: 74-30-4005Vtgclaigcmvd (3 sources)Other persistent atrial fibrillation; Translations: [Other persistent atrial fibrillation]Onset: 47-24-1498Ehmypslmepbd (1 source)Acidosis, unspecified; Translations: [Acidosis, unspecified]Onset: 84-23-2887Rnhemlz tract infections (20 sources)Urinary tract infectious disease; Translations: [Urinary tract infection, site not specified]40-04-5303XxkcmtfrVrnes infection (15 sources)Viral wart, unspecified; Translations: [Herpes zoster without complication]Onset: 15-47-2828DmweprtxNkryd infection (4 sources)COVID-19; Translations: [COVID-19]Onset: 05-25-2022 Past or Other Problems Problem ClassificationProblemDateDocumented DateEpisodic/Chronic Administrative/social admission (14 sources)Other reduced mobility; Translations: [Impaired mobility and activities of daily living]Onset: [id number] and electrolyte disorders (20 sources)Acidosis; Translations: [Acidemia]Onset: 09-30-2021 Resolved: 82-48-9435OabllmxpYhoqsarn; including migraine (1 source)Headache; Translations: [Headache]Onset: 94-63-8097Rqlxirkl Immunizations and screening for infectious disease (1 source)Encounter for immunization; Translations: [ENCOUNTER FOR IMMUNIZATION] Onset: 46-73-5447BkjmasgnSilkoht and fatigue (20 sources)Weakness; Translations: [Asthenia]Onset: 13-70-6065Jcccatur Nonspecific chest pain (17 sources)Chest pain; Translations: [Chest pain, Other]Onset: 11-24-2015 86-06-2768NrvlgglxMtaoe aftercare (3 sources)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; Translations: [PRISON CURRNT USE ANTICOAGULANTS]Onset: 53-25-6829AdhvvhofCyqcu and unspecified benign neoplasm (1 source)Benign neoplasm of skin of trunk, excluding scrotum; Translations: [Benign neoplasm of skin of trunk, except scrotum]Onset: 23-30-9972LremcsjvHxpoz connective tissue disease (13 sources)Myofascial pain; Translations: [Myalgia, other site]Onset: 763669-59-7434QijvqpxsYlktu ear and sense organ disorders (1 source)Disorder of ear; Translations: [Unspecified disorder of ear]Onset: 76-43-7062JejnpltgUlvjt lower respiratory disease (20 sources)Dyspnea at rest; Translations: [Shortness of breath]Onset: 217701-67-8155AsmiygpdAtjhm lower respiratory disease (12 sources)Dyspnea, unspecified; Translations: [Other respiratory abnormalities]Onset: 593343-76-7069VyobpinoVuvhn lower respiratory disease (2 sources)Shortness of breath; Translations: [Shortness of breath]Onset: 94-33-2786EgozatpmDimjcmdi codes; unclassified (1 source)Family history of diabetes mellitus; Translations: [Family history of diabetes mellitus]Onset: 71-71-9425HxkvkxftZydhxrus codes; unclassified (3 sources)Other specified health status; Translations: [Other specified health status]Onset: 23-50-5892HxpoptcsVtuxtsiikvt; intervertebral disc disorders; other back problems (13 sources)Lumbosacral radiculopathy; Translations: [Radiculopathy, lumbosacral region]Onset: 900025-44-2951MylwoeniScdatwylfxtt (8 sources)Never smoked tobacco; Translations: [Never a smoker]Unclassified (1 source)CONTACT W/AND (SUSP) EXPOS COVID-19; Translations: [CONTACT W/AND (SUSP) EXPOS COVID-19]Onset: 22-74-9954Clwjrpefvljc (1 source)Lumbar pain M54.50Unclassified (10 sources)Onset: 10-04-2023 Resolved: Results Test NameValueInterpretationReference RangeFacilityAlanine aminotransferase [Enzymatic activity/volume] in Serum or PlasmaOrdered By: Claire Choi on 26-66-2436YYP [Catalytic activity/Vol]10 U/LNormal7-52Mer[facility] Health Fairfield HospitalComment on above:Performed By: #### LACTIC #### [facility] [address] [place] [address] USAAlbumin [Mass/volume] in Serum or Plasma by Bromocresol green (BCG) dye binding methoOrdered By: Claire Choi on 66-11-2440Qxaloao BCG dye [Mass/Vol]3.8 g/dL3.5-5.7FWVUMedicine Harrison Community HospitalAlkaline phosphatase [Enzymatic activity/volume] in Serum or PlasmaOrdered By: Claire Choi on 70-30-1322IAB [Catalytic activity/Vol]111 U/DFdyu33-679RuklujxgbMercy Health Fairfield HospitalComment on above:Performed By: #### LACTIC #### [facility] [address] [place] [id number] USAAspartate aminotransferase [Enzymatic activity/volume] in Serum or PlasmaOrdered By: Claire Choi on 27-47-8122CCB [Catalytic activity/Vol]14 U/ZLkkxjo40-54MsozslqlcMercy Health Fairfield HospitalComment on above: Performed By: #### LACTIC #### [facility] [address] [place] [address] USABasophils [#/volume] in Blood by Automated countOrdered By: Claire Choi on 29-08-4375Rilvvvxvh (Bld) [#/Vol]0.1 10*3/uLNormal 0.0-0.2FWVUMedicine Harrison Community HospitalComment on above:Result Comment: PERFORMED BY: [place] [address] PATHOLOGIST SENIOR HR MANAGER LOIDA RAMOS M.D.Performed By: #### LACTIC #### [place] [address] USABasophils/100 leukocytes in Blood by Automated count Ordered By: Claire Choi on 52-39-0549Isbosldjo/100 WBC (Bld)0.8 %Normal. [facility] Fairfield HospitalComment on above:Performed By: #### LACTIC #### [place] [address] USABilirubin.total [Mass/volume] in Serum or PlasmaOrdered By: Claire Choi on 61-01-0025Vetpotrdk [Mass/Vol]0.4 mg/dLNormal0.3-1.0 [facility] HospitalComment on above:Performed By: #### LACTIC #### [place] [address] USACBC W Auto Differential panel (Bld)on 19-17-8836Jbyszykwf (Bld) [#/Vol]0.1 10*3/uL0.0 - 0.2 10*3/uLNOMS HealthcareBasophils/100 WBC Manual cnt (Syn fld)0.8 %.NOMS HealthcareEosinophils (Bld) [#/Vol]0.1 10*3/uL0.0 - 0.45 10*3/uLNOMS HealthcareEosinophils/100 WBC Manual cnt (Syn fld)1 %.NOMS HealthcareErythrocyte distribution width (RBC) [Ratio]13.3 %11.9 - 15.3 %[facility] Institute [facility] St. LouisHematocrit (Bld) [Volume fraction]38.2 %34.0 - 46.4 %[facility] Hemoglobin (Bld) [Mass/Vol]12.9 g/dL11.8 - 15.4 g/dLDAVIS HOSPITAL AND MEDICAL [facility]ENTER HealthcareLymphocytes (Bld) [#/Vol]1.9 10*3/uL1.00 - 4.8 10*3/uLNOCO HealthcareLymphocytes/100 WBC Manual cnt (Syn fld)23.3 %.[facility] HospitalH (RBC) [Entitic mass]31.6 pg24.7 - 34.3 pgRay County Memorial HospitalHC (RBC) [Mass/Vol]33.8 g/dL32.0 - 35.0 g/dLRay County Memorial HospitalV (RBC) [Entitic vol]93.5 fL80 - 100 fLDAVIS HOSPITAL AND MEDICAL [facility]ENTER HealthcareMonocytes (Bld) [#/Vol]0.5 10*3/uL0.0 - 0.8 10*3/uLDAVIS HOSPITAL AND MEDICAL CENTER Healthcare Monocytes+Macrophages/100 WBC Manual cnt (Syn fld)5.9 %.[facility] Neutrophils (Bld) [#/Vol]5.5 10*3/uL1.8 - 7.7 10*3/uLNOCO Healthcare Neutrophils/100 WBC Manual cnt (Syn fld)69 %.[facility] St. LouisNRBC0 /100{WBC}0 - 0.5 /100{WBC}[facility] St. LouisPlatelet mean volume (Bld) [Entitic vol]9.6 fL6.3 - 10.7 fLDAVIS HOSPITAL AND MEDICAL [facility] HealthcarePlatelets (Bld) [#/Vol]184 10*3/uL150 - 450 10*3/uLNOMS Brecksville Va / Crille HospitalRBC LM.HPF (Urine sed) [#/Area]4.08 10*6/uL3.60 - 5.00 10*6/uLNOMS HealthcareWBC (Bld) [#/Vol]8 10*3/uL3.8 - 11.6 10*3/uLNONortheast Missouri Rural Health NetworkWBC LM.HPF (Urine sed) [#/Area]8 [CFU]/mL3.8 - 11.6 [CFU]/mLNOMS HealthcareNOMS Healthcare Calcium [Mass/volume] in Serum or PlasmaOrdered By: Claire Choi on 81-34-5321Rndxspk [Mass/Vol]8.5 mg/dLLow8.6-10.3FWVUMedicine Harrison Community HospitalComment on above:Performed By: #### LACTIC #### [place] [address] USACarbon dioxide, total [Moles/volume] in Serum or Plasma Ordered By: Claire Choi on 88-22-3109CN8 [Moles/Vol]22.6 mmol/LNormal 21.0-31.0Mer[facility] Fairfield HospitalComment on above:Performed By: #### LACTIC #### [place] [address] USAChloride [Moles/volume] in Serum or PlasmaOrdered By: Claire Choi on 61-50-0456Sodoscxd [Moles/Vol]108 mmol/VTkrl90-816QhwcilcrsMercy Health Fairfield HospitalComment on above:Performed By: #### LACTIC #### [place] [address] USAComplete Blood Count Auto Diffon 03-68-0966Lqxv Corpuscular HGB Conc33.8 g/yJUwffna03.0-35.0[facility] Physician GroupComment on above:Performed By: #### LACTIC #### [place] [address] USANRBC%0.0 /100{WBC}Normal0-0.5[facility] Comment on above:Performed By: #### LACTIC #### [place] [address] USAWhite Blood Count8.0 [CFU]/mLNormal3.8-11.6[facility] Physician GroupComment on above:Performed By: #### LACTIC #### [place] [address] USAComprehensive Metabolic Panelon 60-39-4674Xkmuwks [Mass/Vol]3.8 g/dLNormal3.5-5.7The [facility] Physician GroupComment on above: Performed By: #### LACTIC #### [facility] [address] [place] [address] USACreatinine Clr Calc Bhwcrzxk34.06NoNovant Health Presbyterian Medical Center Physician GroupComment on above:Result Comment: PERFORMED BY: [place] [address] PATHOLOGIST SENIOR HR MANAGER LOIDA RAMOS M.D.Performed By: #### LACTIC #### [place] [address] USAGFR/1.73 sq M.predicted MDRD (S/P/Bld) [Vol rate/Area] 20.153 mL/min/{1.73_m2}NormalThe Person Memorial Hospital Physician GroupComment on above: Performed By: #### LACTIC #### [place] [id number] USAComprehensive metabolic panelon 58-03-7956Ianiabw [Mass/Vol]3.8 g/dL3.5 - 5.7 g/dLNOCO HealthcareAlbumin/Globulin [Mass ratio]1.3 {ratio}NOMS HealthcareALP [Catalytic activity/Vol]111 U/LHigh34 - 104 U/LNOMS HealthcareALT [Catalytic activity/Vol]10 U/L7 - 52 U/LNOMS HealthcareAnion gap [Moles/Vol]10.3 mmol/L6.0 - 15.0NOMS HealthcareAST [Catalytic activity/Vol]14 U/L13 - 39 U/LNOMS HealthcareBilirubin [Mass/Vol]0.4 mg/dL0.3 - 1.0 mg/dLNOMS HealthcareCalcium [Mass/Vol]8.5 mg/dLLow8.6 - 10.3 mg/dLNOMS HealthcareChloride [Moles/Vol]108 mmol/LHigh98 - 107 mmol/LNOMS HealthcareCO2 [Moles/Vol]22.6 mmol/L21.0 - 31.0 mmol/LNOMS HealthcareCreatinine (U) [Mass/Vol]2.34 mg/dLHigh 0.60 - 1.20 mg/dLNOCO HealthcareCREATININE CLR CALC ATCSFAIU79.06N[facility] Healthcare GFR/1.73 sq M.predicted MDRD (S/P/Bld) [Vol rate/Area]20.153 mL/min/{1.73_m2} NOMS HealthcareGlobulin (S) [Mass/Vol]2.9 g/dLNOMS HealthcareGlucose [Mass/Vol] 161 mg/kRXfih49 - 100 mg/dLThe Rehabilitation Institute of St. LouisComment on above:Random Glucose Reference Range is dependent on time and content of last meal. Glucose of more than 200 mg/dL in a nonstressed, ambulatory subject supports the diagnosis of Diabetes Mellitus. ADA recommended reference range Interpretation and review of laboratory resultsAbnormalNOMS HealthcarePotassium [Moles/Vol]3.9 mmol/L3.5 - 5.1 mmol/LNOMS HealthcareProtein [Mass/Vol]6.7 g/dL 6.4 - 8.9 g/dLNOCO HealthcareSodium [Moles/Vol]137 mmol/L136 - 145 mmol/LNOMS HealthcareUrea nitrogen [Mass/Vol]35 mg/dLHigh7 - 25 mg/dLNONortheast Missouri Rural Health NetworkNOCO HealthcareCreatinine [Mass/volume] in Serum or PlasmaOrdered By: Claire Choi on 17-41-0366Yanykealqu [Mass/Vol]2.34 mg/dLHigh0.60-1.20Mer[facility] HospitalComment on above:Performed By: #### LACTIC #### [facility] [address] [place] [address] USAEosinophils [#/volume] in Blood by Automated countOrdered By: Claire Choi on 61-01-5152Ejcthbshvjl (Bld) [#/Vol]0.1 10*3/uLNormal 0.0-0.45Mer[facility] HospitalComment on above:Performed By: #### LACTIC #### [facility] [address] [place] [id number] USAEosinophils/100 leukocytes in Blood by Automated count Ordered By: Claire Choi on 39-21-5273Ysztucoulmf/100 WBC (Bld)1.0 %Normal. [facility] HospitalComment on above:Performed By: #### LACTIC #### [facility] [address] [place] [address] USAErythrocyte distribution width [Ratio] by Automated count Ordered By: Claire Choi on 54-90-2659Cwdizsjjhpc distribution width (RBC) [Ratio]13.3 %Guamka35.9-15.3FWVUMedicine Harrison Community HospitalComment on above: Performed By: #### LACTIC #### [facility] [address] [place] [address] USAErythrocytes [#/volume] in Blood by Automated countOrdered By: Claire Choi on 38-41-6116QOM (Bld) [#/Vol]4.08 10*6/uLNormal3.60-5.00 [facility] HospitalComment on above:Performed By: #### LACTIC #### [facility] [address] [place] [address] USAFree K+L LT Chains, Qn, Son 21-66-1627Eoap Luckey Light Chains, S44.7 mg/LNormal3.3-19.4The [facility] Physician GroupComment on above: Performed By: #### GLULS #### Point of Care testing ,Free Lambda Light Chains, S24.5 mg/LNormal5.7-26.3[facility] Comment on above:Performed By: #### GLULS #### Point of Care testing ,Luckey/Lambda Ratio, S1.94Qukwtk5.26-1.65The [facility] Physician GroupComment on above:Result Comment: Performed at: - [facility] [id number] Pharmacy Helper: Elpidio Delgado PhD, Phone: [phone] PERFORMED BY: [place] [address] PATHOLOGIST SENIOR HR MANAGER LOIDA RAMOS M.D.Performed By: #### GLULS #### Point of Care testing ,Glomerular filtration rate [Volume Rate/Area] in Serum, Plasma or Blood by CreatinineOrdered By: Claire Choi on 98-25-3845Ahldppebea filtration rate [Volume Rate/Area] in Serum, Plasma or Blood by Wdmlmwgqjz32.153 mL/MinMercy Health Fairfield HospitalGlucose [Mass/volume] in Serum or PlasmaOrdered By: Claire Choi on 05-11-3580Wjuycnq [Mass/Vol]161 mg/vKDhjt02-349EkfzphwuqMercy Health Fairfield HospitalComment on above:ADA recommended reference rangeRandom Glucose Reference Range is dependent on time and content of last meal. Glucose of more than 200 mg/dL in a nonstressed, ambulatory subject supports the diagnosisof Diabetes Mellitus.Result Comment: Random Glucose Reference Range is dependent on time and content of last meal. Glucose of more than 200 mg/dL in a nonstressed, ambulatory subject supports the diagnosis of Diabetes Mellitus. ADA recommended reference rangePerformed By: #### LACTIC #### [facility] [address] [place] [id number] USAHematocrit [Volume Fraction] of Blood by Automated count Ordered By: Claire Burgessbhargav on 13-79-2946Spkuwbsjzg (Bld) [Volume fraction] 38.2 %Hkbsdl42.0-46.4FWVUMedicine Harrison Community HospitalComment on above:Performed By: #### LACTIC #### [facility] [address] [place] [address] USAHemoglobin [Mass/volume] in BloodOrdered By: Claire Steph on 62-93-7234Vvwflchnpi (Bld) [Mass/Vol]12.9 g/dIAskomt69.8-15.4 [facility] HospitalComment on above:Performed By: #### LACTIC #### [facility] [address] [place] [address] USAImmunofixation,Serumon 24-52-3400Hphnqbdwgdaujh, Serum Comment:Normal.[facility] Physician GroupComment on above:Result Comment: Presence of monoclonal protein is unclear at this time. Suggest repeat in 3 to 6 months if clinically indicated.Performed By: #### GLULS #### Point of Care testing ,Immunoglobulin A, Rdqvc329 mg/qQNlgmnj12-735Ueh [facility] Comment on above:Performed By: #### GLULS #### Point of Care testing ,Immunoglobulin G961 mg/yHJeoxgd774-6315Bzd [facility] Physician GroupComment on above:Performed By: #### GLULS #### Point of Care testing ,Immunoglobulin M, Gvhnj880 mg/bPUmwcns89-407Afk [facility] Comment on above:Result Comment: Performed at: - [facility] [address], [place], [place] [id number] Pharmacy Helper: Elpidio Delgado PhD, Phone: [phone] By: #### GLULS #### Point of Care testing ,Leukocytes [#/volume] corrected for nucleated erythrocytes in Blood by Automated counOrdered By: Claire Choi on 92-72-7857XEX corrected for nucl RBC Auto (Bld) [#/Vol]8.0 10*3/uL3.8-11.6FWVUMedicine Harrison Community Hospital Leukocytes [#/volume] in Blood by Automated countOrdered By: Claire Choi on 70-02-6443DTV (Bld) [#/Vol]8.0 10*3/uLNormal3.8-11.6FWVUMedicine Harrison Community HospitalComment on above:Performed By: #### LACTIC #### [facility] [address] [place] [id number] USALymphocytes [#/volume] in Blood by Automated countOrdered By: Claire Choi on 80-51-3665Wxdhwenyzot (Bld) [#/Vol]1.9 10*3/uLNormal 1.00-4.8Mer[facility] HospitalComment on above:Performed By: #### LACTIC #### [facility] [address] [place] [address] USALymphocytes/100 leukocytes in Blood by Automated count Ordered By: Claire Choi on 61-10-0443Bcjirkspusx/100 WBC (Bld)23.3 %Normal .[facility] HospitalComment on above:Performed By: #### LACTIC #### [facility] [address] [place], [place] [address] USAH [Entitic mass] by Automated countOrdered By: Claire Choi on 49-79-7560EAH (RBC) [Entitic mass]31.6 bwHrovsk64.7-34.3FWVUMedicine Harrison Community HospitalComment on above:Performed By: #### LACTIC #### [facility] [address]HC Auto (RBC) [Mass/Vol]Ordered By: Claire Choi on 09-84-6956ATLH (RBC) [Mass/Vol]33.8 g/dL32.0-35.0Mer[facility] HospitalMCV [Entitic volume] by Automated countOrdered By: Claire Choi on 27-99-9424AKN (RBC) [Entitic vol]93.5 mUQbcysf03-081XfnaxetilMercy Health Fairfield HospitalComment on above:Performed By: #### LACTIC #### [facility] [address] [place] [address] USAMonocytes [#/volume] in Blood by Automated countOrdered By: Claire Choi on 04-70-3875Mqkemhiwf (Bld) [#/Vol]0.5 10*3/uLNormal 0.0-0.8[facility] HospitalComment on above:Performed By: #### LACTIC #### [facility] [address] [place] [address] USAMonocytes/100 leukocytes in Blood by Automated count Ordered By: Claire Choi on 05-89-5291Laaqhdpjv/100 WBC (Bld)5.9 %Normal. [facility] HospitalComment on above:Performed By: #### LACTIC #### [facility] [address] [place] [address] USANeutrophils [#/volume] in Blood by Automated countOrdered By: Claire Choi on 01-67-9949Mjykxgvebiz (Bld) [#/Vol]5.5 10*3/uLNormal 1.8-7.7FWVUMedicine Harrison Community HospitalComment on above:Performed By: #### LACTIC #### [facility] [address] [place] [address] USANeutrophils/100 leukocytes in Blood by Automated count Ordered By: Claire Choi on 53-54-8006Kimrzjxgend/100 WBC (Bld)69.0 %Normal .[facility] HospitalComment on above:Performed By: #### LACTIC #### [facility] [address] [place] [address] USANo Panel InformationOrdered By: Claire Choi on 38-21-0379Vvezkwus Creatinine Clearance (Chem21.06[facility] HospitalProtein Electrophoresis M-SpikeNot observed g/dLNot ObservedMercy Health Fairfield HospitalProtein Electrophoresis NoteComment.[facility] HospitalComment on above:Protein electrophoresis scan will follow via computer,mail, or cafeteria cashier delivery.Performed at: [facility] [address] [id number] Director: Elpidio Delgado PhD, Phone: [phone] Nucleated erythrocytes [Presence] in Blood by Automated countOrdered By: Claire Choi on 24-57-3394Lrovfntjc RBC Auto Ql (Bld)0.0 /100{WBC}0-0.5FWVUMedicine Harrison Community HospitalPlatelet mean volume [Entitic volume] in Blood by Automated countOrdered By: Claire Choi on 35-64-5423Cokyrsii mean volume (Bld) [Entitic vol]9.6 fLNormal6.3-10.7FWVUMedicine Harrison Community HospitalComment on above:Performed By: #### LACTIC #### [facility] [address] [place] [address] USAPlatelets [#/volume] in Blood by Automated countOrdered By: Claire Choi on 17-40-3875Wqdgueepv (Bld) [#/Vol]184 10*3/uLNormal 150-450Mer[facility] HospitalComment on above:Performed By: #### LACTIC #### [facility] [address] [place] [address] USAPotassium [Moles/volume] in Serum or PlasmaOrdered By: Claire Choi on 28-31-9664Fqpcyqpns [Moles/Vol]3.9 mmol/LNormal3.5-5.1 [facility] HospitalComment on above:Performed By: #### LACTIC #### [place] [address] USAProtein Electrophoresis, Serumon 08-12-2025 Rtlmu-3-Ucilmwbj8.1 g/dLNormal0.0-0.4[facility] Physician GroupComment on above:Performed By: #### GLULS #### Point of Care testing ,Euvan-7-Eliklwkz3.0 g/dLNormal0.4-1.0[facility] Physician GroupComment on above:Performed By: #### GLULS #### Point of Care testing ,Beta Globulin0.9 g/dLNormal0.7-1.3[facility] Physician GroupComment on above:Performed By: #### GLULS #### Point of Care testing ,Gamma Globulin1.0 g/dLNormal0.4-1.8[facility] Physician GroupComment on above:Performed By: #### GLULS #### Point of Care testing ,M-SpikeNot ObservedNormalNot ObservedThe [facility] Hospital Physician GroupComment on above:Performed By: #### GLULS #### Point of Care testing ,SPE-NoteCommentNormal.[facility] Physician GroupComment on above:Result Comment: Protein electrophoresis scan will follow via computer, mail, or cafeteria cashier delivery. Performed at: - [facility] [id number] Pharmacy Helper: Elpidio Delgado PhD, Phone: [phone] By: #### GLULS #### Point of Care testing ,Protein [Mass/volume] in Serum or PlasmaOrdered By: Claire Choi on 32-90-5988Fskgxdk [Mass/Vol]6.7 g/dLNormal6.4-8.9[facility] HospitalComment on above:Performed By: #### LACTIC #### [facility] [address] [place] [address] USASerum free kappa light chain measurementOrdered By: Claire Chio on 33-50-9358Ifjsxpoepwhumk light chains.kappa.free (S) [Mass/Vol]44.7 mg/LHigh3.3-19.4FSalem City Hospitalerum globulin measurement (mass/volume)Ordered By: Claire Choi on 96-74-7551Qjdthjji (S) [Mass/Vol]3.1 g/dLNormal2.2-3.9[facility] HospitalComment on above:Performed By: #### GLULS #### Point of Care testing ,Serum globulin measurement by calculation (mass/volume)Ordered By: Claire Choi on 51-56-7078Yoddmtjq (S) [Mass/Vol]2.9 g/dLNormalMercy Health Fairfield HospitalComment on above:Performed By: #### LACTIC #### [facility] [address] [place] [address] USASerum immunoglobulin free kappa light chains/immunoglobulin free lambda light chainsOrdered By: Claire Choi on 20-15-7371Zyfdgfmmbjsyxi light chains.kappa.free/Immunoglobulin light chains.lambda.free (S) [Mass ratio]1.09Ewqd1.26-1.65[facility] HospitalComment on above:Performed at: [facility] [address] [id number] Director: Elpidio Delgado PhD, Phone: [phone] or plasma IgA measurement (mass/volume)Ordered By: Claire Choi on 63-16-5873LzB [Mass/Vol]231 mg/xB98-593QsdhoujivEast Liverpool City Hospitalerum or plasma IgG measurement (mass/volume)Ordered By: Claire Choi on 08-12-2025 IgG [Mass/Vol]961 mg/aG530-0230JbjnarbsaEast Liverpool City Hospitalerum or plasma IgM measurement (mass/volume)Ordered By: Claire Choi on 85-38-7378IdS [Mass/Vol]126 mg/zM37-914WgxczkewaMercy Health Fairfield HospitalComment on above: Performed at: [facility] [id number] Director: Elpidio Delgado PhD, Phone: [phone] or plasma albumin measurement (mass/volume)Ordered By: Claire Choi on 99-14-0469Iobtlmg [Mass/Vol]3.3 g/dLNormal2.9-4.4FWVUMedicine Harrison Community HospitalComment on above:Performed By: #### GLULS #### Point of Care testing ,Serum or plasma albumin/globulin mass ratioOrdered By: Claire Choi on 65-93-6270Nbllsvr/Globulin [Mass ratio]1.3 {ratio}NormalMercy Health Fairfield HospitalComment on above:Performed By: #### LACTIC #### [facility] [address] [place] [id number] USAAlbumin/Globulin [Mass ratio]1.1 {ratio}Normal0.7-1.7 [facility] HospitalComment on above:Performed By: #### GLULS #### Point of Care testing ,Serum or plasma alpha 1 globulin measurement by electrophoresis (mass/volume) Ordered By: Claire Choi on 66-96-1412Icuxm 1 globulin Elph [Mass/Vol]0.1 g/dL0.0-0.4FSalem City Hospitalerum or plasma alpha 2 globulin measurement by electrophoresis (mass/volume)Ordered By: Claire Choi on 20-20-3610Wrejo 2 globulin Elph [Mass/Vol]1.0 g/dL0.4-1.0East [facility] City Hospitalerum or plasma anion gap determinationOrdered By: Claire Choi on 63-31-6725Fbipy gap [Moles/Vol]10.3 mmol/LNormal6.0-15.0[facility] HospitalComment on above:Performed By: #### LACTIC #### [facility] [address] [place], [place] [address] USASerum or plasma beta globulin measurement by electrophoresis (mass/volume)Ordered By: Claire Choi on 74-91-8092Gjen globulin Elph [Mass/Vol]0.9 g/dL0.7-1.3FSalem City Hospitalerum or plasma gamma globulin measurement by electrophoresis (mass/volume)Ordered By: Claire Choi on 45-16-5124Ppmgs globulin Elph [Mass/Vol]1.0 g/dL0.4-1.8 [facility] City Hospitalerum or plasma immunoglobulin free lambda light chains measurement (mass/volume)Ordered By: Claire Choi on 76-92-0396Dymsbalpxbcmyv light chains.lambda.free [Mass/Vol]24.5 mg/L5.7-26.3 [facility] City Hospitalerum total protein measurementOrdered By: Claire Choi on 81-32-2145Nbnuvsy [Mass/Vol]6.4 g/dLNormal6.0-8.5FWVUMedicine Harrison Community HospitalComment on above:Performed By: #### GLULS #### Point of Care testing ,Sodium [Moles/volume] in Serum or PlasmaOrdered By: Claire Choi on 98-20-0225Avfkli [Moles/Vol]137 mmol/HRwctrz004-745LlwacsqtuMercy Health Fairfield HospitalComment on above:Performed By: #### LACTIC #### [facility] [address] [place] [address] USAUrea nitrogen [Mass/volume] in Serum or PlasmaOrdered By: Claire Choi on 48-94-5774Xbjl nitrogen [Mass/Vol]35 mg/dLHigh7-25Mer[facility] Health Fairfield HospitalComment on above:Performed By: #### LACTIC #### [place] [id number] USAXR bone surveyon 03-30-8950GZ bone surveyOHIOHEALTH O'BLENESS [facility] Main [place] [address] [place], [place] [id number] XRay Report Signed Patient: Hailee Trivedi MR#: [id number] 306 : 1940 Acct:[id number] Age/Sex: 85 / F ADM Date: 08/12/25 Loc: Room: Type: [facility] Attending Dr: Cliare Choi II DO Copies to: Claire Choi II, DO Ordering Provider: Claire Choi II, DO Date of Service: 08/12/25 XR/XR bone survey: C90.00 - Multiple myeloma not having achieved remission XR bone survey 08/12/2025 1:32 PM SIGNS AND SYMPTOMS: C90.00 - Multiple myeloma not having achieved remission PROTOCOL: Frontal and lateral radiograph images of the skeletal structures COMPARISON: None FINDINGS: Degenerative changes are noted throughout the cervical, thoracic, and lumbar spine. Degenerative changes are noted in the hips, knees, wrists, and shoulders. There is enthesophyte formation along the iliac wings. A right-sided Eyeqzs-f-Hkgn is present. There is evidence of prior cholecystectomy in the right upper quadrant. There is a 15 mm lucency in the left iliac bone adjacent to the left sacroiliac joint. There is a 7 mm lucency in the right iliac bone. XR/XR bone survey IMPRESSION: There is a 15 mm lucency in the left iliac bone adjacent to the left sacroiliac joint. There is a 7 mm lucency in the right iliac bone. No additional areas of lucency are noted. Impression dictated by: Armando Huynh M.D. 08/12/2025 5:01 PM Dictation Location: [place] [address] Transcribed By: AISHA 08/12/25 170 Dictated By: Armando Huynh II, MD 08/12/25 165 Signed By: 08/12/251700[facility] Physician GroupBasophils Auto (Bld) [#/Vol] Ordered By: Phillip Arroyo on 91-90-1219Tzemqjzxi (Bld) [#/Vol]0.0 10 3/uL0.0-0.1 [facility] HospitalBasophils/100 WBC Auto (Bld)Ordered By: Phillip Arroyo on 83-13-6721Wysjbsraf/100 WBC (Bld)0.4 %0.2-2.0[facility]field HospitalEosinophils/100 WBC Auto (Bld)Ordered By: Phillip Arroyo on 22-78-2418Ubuzysxajxf/100 WBC (Bld)1.6 %0.9-7.0[facility] Erythrocyte distribution width Auto (RBC) [Ratio]Ordered By: Phillip Arroyo on 02-72-0815Ghmbpvydkdd distribution width (RBC) [Ratio]12.8 %11.0-15.0[facility]field HospitalGlobulin Calc (S) [Mass/Vol]Ordered By: Phillip Arroyo on 49-58-5747Txsztuur (S) [Mass/Vol]4.0 g/dLMercy Health Fairfield Hospital Glomerular filtration rate (GFR) estimation in non- AmericanOrdered By: Phillip Arroyo on 40-33-9234FUM/1.73 sq M.predicted among non-blacks MDRD (S/P/Bld) [Vol rate/Area]17 mL/min/{1.73_m2}Low>=60 mL/min/1.73m 2FWVUMedicine Harrison Community HospitalHematocrit Auto (Bld) [Volume fraction]Ordered By: Phillip Arroyo on 54-55-0388Hsmgclmplb (Bld) [Volume fraction]39.5 %36.0-48.0[facility] HospitalHemoglobin [Mass/volume] in BloodOrdered By: Phillip Arroyo on 66-13-7429Bcubgdlbmy (Bld) [Mass/Vol]12.8 g/dL12.0-16.0[facility] HospitalLaboratory - Chemistry and Chemistry - challengeOrdered By: Phillip Arroyo on 17-07-7545Ptjhaaoha Ql (U)NegativeNEGATIVEMercy Health Fairfield HospitalGlucose (U) [Mass/Vol]NegativeNEGATIVEMercy Health Fairfield Hospital Ketones Ql (U)NegativeNEGATIVEMercy Health Fairfield HospitalpH (U)6.0 [pH] 5.0-9.0[facility] City Hospitalpecific gravity (U) [Rel density]1.010 1.005-1.025Mer[facility]field HospitalUrobilinogen Qn (U)0.2 {Marley'U}/dL0.2-1.0[facility] HospitalAlbumin [Mass/Vol]3.1 g/dL Low3.4-5.0[facility] HospitalALP [Catalytic activity/Vol]128 U/L Bdww85-368PxwvcheqpMercy Health Fairfield HospitalALT [Catalytic activity/Vol]16 U/L 14-59Mer[facility] HospitalAST [Catalytic activity/Vol]11 U/RZhv53-72 [facility] HospitalBilirubin [Mass/Vol]0.3 mg/dL0.2-1.0[facility] HospitalCalcium [Mass/Vol]8.6 mg/dL8.5-10.1FWVUMedicine Harrison Community HospitalChloride [Moles/Vol]109 mmol/ZFpeb91-221HqzjhaaryMercy Health Fairfield HospitalCO2 [Moles/Vol]24.4 mmol/L21.0-32.0[facility] Creatinine [Mass/Vol]2.62 mg/dLHigh0.55-1.02[facility] GFR/1.73 sq M.predicted MDRD (S/P/Bld) [Vol rate/Area]21 mL/min/{1.73_m2}Low>=60 mL/min/1.73m 2FWVUMedicine Harrison Community HospitalGlucose [Mass/Vol]110 mg/dLHigh 74-106Mer[facility] HospitalMagnesium [Mass/Vol]2.1 mg/dL1.8-2.4 [facility] HospitalPotassium [Moles/Vol]4.8 mmol/L3.5-5.1FWVUMedicine Harrison Community HospitalProtein [Mass/Vol]7.1 g/dL6.4-8.2FSalem City Hospitalodium [Moles/Vol]141 mmol/E505-641NipkgojfhMercy Health Fairfield HospitalUrea nitrogen [Mass/Vol]40.0 mg/dLHigh7.0-18.0[facility] HospitalUrea nitrogen/Creatinine [Mass ratio]15.3 mg/mgMercy Health Fairfield HospitalLaboratory - Hematology and Cell countsOrdered By: Phillip Arroyo on 26-76-6546Jalrycwc granulocytes/100 WBC (Bld)0.3 %0.0-0.5FWVUMedicine Harrison Community HospitalLaboratory - Specimen informationOrdered By: Phillip Arroyo on 42-17-2657Vgvyvnxnnx (U)CLEARCLEARFWVUMedicine Harrison Community HospitalColor (U)LT. YELLOWYELLOWMercy Health Fairfield HospitalLaboratory - UrinalysisOrdered By: Phillip Arroyo on 36-66-9334Dbovnrool esterase Test strip Ql (U)NegativeNEGATIVE [facility] HospitalMucus Ql (Urine sed)NONE SEENNONE SEENMercy Health Fairfield HospitalNitrite Ql (U)NegativeNEGATIVEMercy Health Fairfield HospitalProtein Ql (U)TRACE mg/dLNEG/TRACEMercy Health Fairfield Hospital Leukocytes [#/volume] corrected for nucleated erythrocytes in Blood by Automated counOrdered By: Phillip Arroyo on 69-11-8258NUG corrected for nucl RBC Auto (Bld) [#/Vol]7.6 10 3/uL4.0-11.0[facility] HospitalLymphocytes Auto (Bld) [#/Vol]Ordered By: Phillip Arroyo on 84-04-4288Fckotyyqnug (Bld) [#/Vol]2.2 10 3/uL1.2-3.8[facility] HospitalLymphocytes/100 WBC Auto (Bld) Ordered By: Phillip Arroyo on 18-32-0177Kntkhyqypcb/100 WBC (Bld)29.5 %20.5-60.0 [facility] HospitalMCH Auto (RBC) [Entitic mass]Ordered By: Phillip Arroyo on 04-27-8489RTX (RBC) [Entitic mass]31.2 pg26.7-34.0[facility] HospitalMCHC Auto (RBC) [Mass/Vol]Ordered By: Phillip Arroyo on 07-08-2025 MCHC (RBC) [Mass/Vol]32.4 g/dL29.9-35.2FWVUMedicine Harrison Community HospitalMCV Auto (RBC) [Entitic vol]Ordered By: Phillip Arroyo on 66-03-7061OXD (RBC) [Entitic vol] 96.3 fL81.0-99.0[facility] HospitalMonocytes Auto (Bld) [#/Vol] Ordered By: Phillip Arroyo on 04-62-8058Nrdeenpjl (Bld) [#/Vol]0.7 10 3/uL0.3-0.8 [facility] HospitalMonocytes/100 WBC Auto (Bld)Ordered By: Phillip Arroyo on 92-10-3283Hegbgszsl/100 WBC (Bld)8.7 %1.7-12.0Mer[facility] HospitalNeutrophils Auto (Bld) [#/Vol]Ordered By: Phillip Arroyo on 88-04-6615Vpwtpheirmk (Bld) [#/Vol]4.5 10 3/uL1.4-6.5FWVUMedicine Harrison Community HospitalNeutrophils/100 WBC Auto (Bld)Ordered By: Phillip Arroyo on 07-08-2025 Neutrophils/100 WBC (Bld)59.5 %43.0-75.0[facility] HospitalNo Panel InformationOrdered By: Phillip Arroyo on 96-37-4880Sbqml BacteriaNONE SEEN #/HPFNONE SEENMercy Health Fairfield HospitalUrine Culture ReflexedNOMercy Health Fairfield HospitalUrine Occult BloodNegativeNEGATIVEMercy Health Fairfield HospitalUrine Other CastsNONE SEEN #/LPFNONE SEENMercy Health Fairfield HospitalUrine Other CrystalsNone Seen #/HPFNone SeenMercy Health Fairfield HospitalUrine RBCNONE SEEN #/HPF0-2FWVUMedicine Harrison Community HospitalUrine Squamous Epithelial CellsRARE #/LPFNONE/RAREMercy Health Fairfield Hospital Urine WBC0-2 #/HPFAbnormalNONE [facility] HospitalEosinophils # (Auto)0.1 10 3/uL0.0-0.7FWVUMedicine Harrison Community HospitalImmature Granulocyte # (Auto)0.02 10 3/uL0.00-0.03[facility] HospitalTroponin I High Sensitivity7.2 pg/mL4.0-51.3FWVUMedicine Harrison Community HospitalComment on above: CUT-OFF POINTS HAVE BEEN ESTABLISHED BASED ON THE FOURTHUNIVERSAL DEFINITION OF MYOCARDIAL INFARCTION. THE UPPERREFERENCE LIMIT (URL) OF TROPONIN, DEFINED THE 99THPERCENTILE OF cTnI DISTRIBUTION IN A REFERENCE POPULATION,HAS BEEN CONFIRMED THE DECISION THRESHOLD FOR MIDIAGNOSIS.99TH PERCENTILE = 51.4 PG/MLNOTE: HIGH-SENSITIVITY TROPONIN ASSAY IS NOT INTENDED TO BEUSED IN ISOLATION BUT SHOULD BE INTERPRETED IN CONJUNCTIONWITH OTHER DIAGNOSTIC AND CLINICAL INFORMATION.Platelet mean volume Auto (Bld) [Entitic vol]Ordered By: Phillip Arroyo on 70-85-8324Ahchnrcl mean volume (Bld) [Entitic vol]11.3 fL9.5-13.5 [facility] HospitalPlatelets Auto (Bld) [#/Vol]Ordered By: Phillip Arroyo on 43-12-2395Zmvzpgjkx (Bld) [#/Vol]179 10 3/kL726-060BuhcmlklvMercy Health Fairfield HospitalRBC Auto (Bld) [#/Vol]Ordered By: Phillip Arroyo on 09-64-6232OYC (Bld) [#/Vol]4.10 10 6/uLLow4.20-5.40[facility] City Hospitalerum or plasma albumin/globulin mass ratioOrdered By: Phillip Arroyo on 07-08-2025 Albumin/Globulin [Mass ratio]0.8 {ratio}[facility] City Hospitalerum or plasma anion gap determinationOrdered By: Phillip Arroyo on 31-38-5902Hfemn gap [Moles/Vol]12.4 mmol/LFWVUMedicine Harrison Community HospitalECG 12 [place] 05-24-2025 Normal sinus rhythm with borderline first-degree AV blockCPAvita Health System Bucyrus Hospital Work Phone: cbc W Auto Differential panel (Bld)on 04-01-2025 Basophils (Bld) [#/Vol]0.1 10*3/uL0.0 - 0.2 10*3/uLNOMS HealthcareBasophils/100 WBC Manual cnt (Syn fld)1 %.NOMS HealthcareEosinophils (Bld) [#/Vol]0.1 10*3/uL 0.0 - 0.45 10*3/uLNOMS HealthcareEosinophils/100 WBC Manual cnt (Syn fld)1.7 %. [facility] HealthcareErythrocyte distribution width (RBC) [Ratio]15.3 %11.9 - 15.3 % NOMS HealthcareHematocrit (Bld) [Volume fraction]37.8 %34.0 - 46.4 %[facility] HealthcareHemoglobin (Bld) [Mass/Vol]12.7 g/dL11.8 - 15.4 g/dLNOCO Healthcare Lymphocytes (Bld) [#/Vol]2 10*3/uL1.00 - 4.8 10*3/uLNOMS Healthcare Lymphocytes/100 WBC Manual cnt (Syn fld)26.8 %.[facility] St. LouisMCH (RBC) [Entitic mass]30.5 pg24.7 - 34.3 pgNONortheast Missouri Rural Health NetworkMCHC (RBC) [Mass/Vol]33.5 g/dL32.0 - 35.0 g/dLNONortheast Missouri Rural Health NetworkMCV (RBC) [Entitic vol]91.2 fL80 - 100 fLNOCO Healthcare Monocytes (Bld) [#/Vol]0.6 10*3/uL0.0 - 0.8 10*3/uLNOMS Healthcare Monocytes+Macrophages/100 WBC Manual cnt (Syn fld)8.1 %.[facility] Neutrophils (Bld) [#/Vol]4.7 10*3/uL1.8 - 7.7 10*3/uLNOMS Healthcare Neutrophils/100 WBC Manual cnt (Syn fld)62.4 %.NOMS HealthcareNRBC0.1 /100{WBC}0 - 0.5 /100{WBC}NOMS HealthcarePlatelet mean volume (Bld) [Entitic vol]9.1 fL6.3 - 10.7 fLNOMS HealthcarePlatelets (Bld) [#/Vol]206 10*3/uL150 - 450 10*3/uLNOMS HealthcareRBC LM.HPF (Urine sed) [#/Area]4.14 10*6/uL3.60 - 5.00 10*6/uLNOMS HealthcareWBC (Bld) [#/Vol]7.6 10*3/uL3.8 - 11.6 10*3/uLNOMS HealthcareWBC LM.HPF (Urine sed) [#/Area]7.6 10*3/uL3.8 - 11.6 10*3/uLNONortheast Missouri Rural Health NetworkNOCO HealthcareComplete Blood Count Auto Diffon 87-05-3490Lrqysrsdp (Bld) [#/Vol]0.1 10*3/uLNormal0.0-0.2The [facility] Physician GroupComment on above:Result Comment: PERFORMED BY: [place] [address] [place] [address] PATHOLOGIST SENIOR HR MANAGER CARLOS A CARD M.D.Performed By: #### GLULS #### Point of Care testing ,Basophils/100 WBC (Bld)1.0 %Normal.The [facility] Physician GroupComment on above:Performed By: #### GLULS #### Point of Care testing ,Eosinophils (Bld) [#/Vol]0.1 10*3/uLNormal0.0-0.45[facility] Comment on above:Performed By: #### GLULS #### Point of Care testing ,Eosinophils/100 WBC (Bld)1.7 %Normal.The [facility] Physician GroupComment on above:Performed By: #### GLULS #### Point of Care testing ,Erythrocyte distribution width (RBC) [Ratio]15.3 %Cbpcpi03.9-15.3The [facility] Physician GroupComment on above:Performed By: #### GLULS #### Point of Care testing ,Hematocrit (Bld) [Volume fraction]37.8 %Pgtftj34.0-46.4The [facility] Physician GroupComment on above:Performed By: #### GLULS #### Point of Care testing ,Hemoglobin (Bld) [Mass/Vol]12.7 g/pEAggmam59.8-15.4The [facility] Physician GroupComment on above:Performed By: #### GLULS #### Point of Care testing ,Lymphocytes (Bld) [#/Vol]2.0 10*3/uLNormal1.00-4.8[facility] Comment on above:Performed By: #### GLULS #### Point of Care testing ,Lymphocytes/100 WBC (Bld)26.8 %Normal.The [facility] Physician GroupComment on above:Performed By: #### GLULS #### Point of Care testing ,MCH (RBC) [Entitic mass]30.5 muPayiua04.7-34.3[facility] Comment on above:Performed By: #### GLULS #### Point of Care testing ,MCV (RBC) [Entitic vol]91.2 iACjuuxn40-186Ped [facility] Physician GroupComment on above:Performed By: #### GLULS #### Point of Care testing ,Mean Corpuscular HGB Conc33.5 g/vYCdlvff88.0-35.0[facility] Physician [facility] Comment on above:Performed By: #### GLULS #### Point of Care testing ,Monocytes (Bld) [#/Vol]0.6 10*3/uLNormal0.0-0.8[facility] Comment on above:Performed By: #### GLULS #### Point of Care testing ,Monocytes/100 WBC (Bld)8.1 %Normal.The [facility] Physician GroupComment on above:Performed By: #### GLULS #### Point of Care testing ,Neutrophils (Bld) [#/Vol]4.7 10*3/uLNormal1.8-7.7[facility] Comment on above:Performed By: #### GLULS #### Point of Care testing ,Neutrophils/100 WBC (Bld)62.4 %Normal.[facility] Physician GroupComment on above:Performed By: #### GLULS #### Point of Care testing ,NRBC%0.1 /100{WBC}Normal0-0.5The [facility] Physician GroupComment on above: Performed By: #### GLULS #### Point of Care testing ,Platelet mean volume (Bld) [Entitic vol]9.1 fLNormal6.3-10.7The [facility] Physician GroupComment on above:Performed By: #### GLULS #### Point of Care testing ,Platelets (Bld) [#/Vol]206 10*3/pRLqmwun764-817Eih [facility] Physician [facility] Comment on above:Performed By: #### GLULS #### Point of Care testing ,RBC (Bld) [#/Vol]4.14 10*6/uLNormal3.60-5.00[facility] Comment on above:Performed By: #### GLULS #### Point of Care testing ,WBC (Bld) [#/Vol]7.6 10*3/uLNormal3.8-11.6The [facility] Physician GroupComment on above:Performed By: #### GLULS #### Point of Care testing ,Comprehensive Metabolic Panelon 52-72-6733Ncsbwbw [Mass/Vol]3.8 g/dLNormal 3.5-5.7The [facility] Physician GroupComment on above:Performed By: #### GLULS #### Point of Care testing ,Albumin/Globulin [Mass ratio]1.3 {ratio}NormalThe [facility] Comment on above:Performed By: #### GLULS #### Point of Care testing ,ALP [Catalytic activity/Vol]124 U/VAitv58-869Ztl [facility] Comment on above:Performed By: #### GLULS #### Point of Care testing ,ALT [Catalytic activity/Vol]8 U/LNormal7-52The [facility] Physician GroupComment on above:Performed By: #### GLULS #### Point of Care testing ,Anion gap [Moles/Vol]11.7 mmol/LNormal6.0-15.0[facility] Comment on above:Performed By: #### GLULS #### Point of Care testing ,AST [Catalytic activity/Vol]13 U/UKfqxgh07-21Tze [facility] Physician [facility] Comment on above:Performed By: #### GLULS #### Point of Care testing ,Bilirubin [Mass/Vol]0.3 mg/dLNormal0.3-1.0The [facility] Physician GroupComment on above:Performed By: #### GLULS #### Point of Care testing ,Calcium [Mass/Vol]8.4 mg/dLLow8.6-10.3The [facility] Physician GroupComment on above:Performed By: #### GLULS #### Point of Care testing ,Chloride [Moles/Vol]113 mmol/YSxdx98-202Zjr [facility] Physician GroupComment on above:Performed By: #### GLULS #### Point of Care testing ,CO2 [Moles/Vol]18.8 mmol/LLow21.0-31.0The [facility] Physician GroupComment on above:Performed By: #### GLULS #### Point of Care testing ,Creatinine [Mass/Vol]2.40 mg/dLHigh0.60-1.20[facility]ician [facility] Comment on above:Performed By: #### GLULS #### Point of Care testing ,Creatinine Clr Calc Bsbcdxrv21.90NormAdventHealth Central Pasco ER Physician GroupComment on above:Result Comment: PERFORMED BY: [facility] [place] [address] PATHOLOGIST SENIOR HR MANAGER CARLOS A CARD M.D.Performed By: #### GLULS #### Point of Care testing ,Estimated GFR19.672 mL/MinNoNovant Health Presbyterian Medical Center Physician [facility] HospitalComment on above: Performed By: #### GLULS #### Point of Care testing ,Globulin (S) [Mass/Vol]2.9 g/dLNormal2.2-3.9[facility] Comment on above:Performed By: #### GLULS #### Point of Care testing ,Glucose [Mass/Vol]101 mg/dFVmcm11-822Fau [facility] Physician GroupComment on above:Result Comment: Random Glucose Reference Range is dependent on time and content of last meal. Glucose of more than 200 mg/dL in a nonstressed, ambulatory subject supports the diagnosis of Diabetes Mellitus. ADA recommended reference rangePerformed By: #### GLULS #### Point of Care testing ,Potassium [Moles/Vol]4.5 mmol/LNormal3.5-5.1[facility] Comment on above:Performed By: #### GLULS #### Point of Care testing ,Protein [Mass/Vol]6.7 g/dLNormal6.4-8.9The [facility] Physician GroupComment on above:Performed By: #### GLULS #### Point of Care testing ,Sodium [Moles/Vol]139 mmol/QDoagln613-839Qfg [facility] Physician GroupComment on above:Performed By: #### GLULS #### Point of Care testing ,Urea nitrogen [Mass/Vol]33 mg/dLHigh7-25The [facility] Physician GroupComment on above:Performed By: #### GLULS #### Point of Care testing ,Comprehensive metabolic panelon 79-18-5564Stgvbnm [Mass/Vol]3.8 g/dL3.5 - 5.7 g/dLNOMS HealthcareAlbumin/Globulin [Mass ratio]1.3 {ratio}NOMS HealthcareALP [Catalytic activity/Vol]124 U/LHigh34 - 104 U/LNOMS HealthcareALT [Catalytic activity/Vol]8 U/L7 - 52 U/LNOMS HealthcareAnion gap [Moles/Vol]11.7 mmol/L6.0 - 15.0 meq/LNOMS HealthcareAST [Catalytic activity/Vol]13 U/L13 - 39 U/LNOMS HealthcareBilirubin [Mass/Vol]0.3 mg/dL0.3 - 1.0 mg/dLNOMS HealthcareCalcium [Mass/Vol]8.4 mg/dLLow8.6 - 10.3 mg/dLNOMS HealthcareChloride [Moles/Vol]113 mmol/LHigh98 - 107 mmol/LNOMS HealthcareCO2 [Moles/Vol]18.8 mmol/LLow21.0 - 31.0 mmol/LNOMS HealthcareCreatinine (U) [Mass/Vol]2.4 mg/dLHigh0.60 - 1.20 mg/dL NOMS HealthcareCREATININE CLR CALC PIODCOLI95.9NOMS HealthcareGFR/1.73 sq M.predicted MDRD (S/P/Bld) [Vol rate/Area]19.672 mL/min/{1.73_m2}mL/MinNOMS HealthcareGlobulin (S) [Mass/Vol]2.9 g/dLNOMS HealthcareGlucose [Mass/Vol]101 mg/bTHybf24 - 100 mg/dLNOMS HealthcareComment on above:Random Glucose Reference Range is dependent on time and content of last meal. Glucose of more than 200 mg/dL in a nonstressed, ambulatory subject supports the diagnosis of Diabetes Mellitus. ADA recommended reference range Interpretation and review of laboratory resultsAbnormalNOMS HealthcarePotassium [Moles/Vol]4.5 mmol/L3.5 - 5.1 mmol/LNOMS HealthcareProtein [Mass/Vol]6.7 g/dL 6.4 - 8.9 g/dLNOMS HealthcareSodium [Moles/Vol]139 mmol/L136 - 145 mmol/LNOMS HealthcareUrea nitrogen [Mass/Vol]33 mg/dLHigh7 - 25 mg/dLNOCO HealthcareNOMS HealthcareFree K+L LT Chains, Qn, Son 83-56-9077Zrxd Luckey Light Chains, S44.9 mg/LHigh3.3-19.4The [facility] Physician GroupComment on above:Performed By: #### GLULS #### Point of Care testing ,Free Lambda Light Chains, S25.1 mg/LNormal5.7-26.3[facility] Comment on above:Performed By: #### GLULS #### Point of Care testing ,Luckey/Lambda Ratio, S1.40Ivad1.26-1.65The [facility] Physician GroupComment on above:Result Comment: Performed at: [facility], [place], [place] [id number] Pharmacy Helper: Elpidio Delgado PhD, Phone: [phone] PERFORMED BY: [facility] [place] [address] PATHOLOGIST SENIOR HR MANAGER CARLOS A CARD M.D.Performed By: #### GLULS #### Point of Care testing ,Immunofixation,Serumon 44-27-3735Tzivvubapqaoae, SerumComment:Normal.The [facility] Physician GroupComment on above:Result Comment: Presence of monoclonal protein is unclear at this time. Suggest repeat in 3 to 6 months if clinically indicated.Performed By: #### GLULS #### Point of Care testing ,Immunoglobulin A, Qqcbc633 mg/hQRtoiod73-701Wak [facility] Comment on above:Performed By: #### GLULS #### Point of Care testing ,Immunoglobulin G1022 mg/jTJgnhir949-9158Dnf [facility] Physician GroupComment on above:Performed By: #### GLULS #### Point of Care testing ,Immunoglobulin M, Thrvl552 mg/hKQoenap01-140Zjc [facility] Physician [facility] Comment on above:Result Comment: Performed at: - [place] [address] Pharmacy Helper: Elpidio Delgado PhD, Phone: [phone] By: #### GLULS #### Point of Care testing ,Protein Electrophoresis, Serumon 39-21-5004Scshziw [Mass/Vol]3.4 g/dLNormal 2.9-4.4The [facility] Physician GroupComment on above:Performed By: #### GLULS #### Point of Care testing ,Albumin/Globulin [Mass ratio]1.2 {ratio}Normal0.7-1.7The [facility] Physician GroupComment on above:Performed By: #### GLULS #### Point of Care testing ,Rbety-4-Tobxqnch8.1 g/dLNormal0.0-0.4The [facility] Physician GroupComment on above:Performed By: #### GLULS #### Point of Care testing ,Qhsdg-5-Epspkkdr0.9 g/dLNormal0.4-1.0The [facility] Physician GroupComment on above:Performed By: #### GLULS #### Point of Care testing ,Beta Globulin0.8 g/dLNormal0.7-1.3The [facility] Physician GroupComment on above:Performed By: #### GLULS #### Point of Care testing ,Gamma Globulin1.0 g/dLNormal0.4-1.8The [facility] Physician GroupComment on above:Performed By: #### GLULS #### Point of Care testing ,M-SpikeComment:NormalNot ObservedThe [facility] Hospital Physician GroupComment on above: Result Comment: SPE shows asymmetrical gamma. Suggest serum HAILEE and free light chain analysis for further evaluation.Performed By: #### GLULS #### Point of Care testing ,Protein [Mass/Vol]6.3 g/dLNormal6.0-8.5The [facility] Physician GroupComment on above:Performed By: #### GLULS #### Point of Care testing ,SPE-NoteCommentNormal.The [facility] Physician GroupComment on above:Result Comment: Protein electrophoresis scan will follow via computer, mail, or cafeteria cashier delivery. Performed at: [place] [address] Pharmacy Helper: Elpidio Delgado PhD, Phone: [phone] By: #### GLULS #### Point of Care testing ,ECG 12 Leadon 94-77-1819Gtwyal sinus rhythm with heart rate of 66CPACS [facility] Work Phone: Carbon dioxide, total [Moles/volume] in Serum or PlasmaOrdered By: Elicia Rhodes on 75-96-4709SQ7 [Moles/Vol]Carbon dioxide, total [Moles/volume] in Serum or JlemjcYnz97.0-31.0[facility] HospitalChloride [Moles/volume] in Serum or PlasmaOrdered By: Elicia Rhodes on 60-31-1088Expwqjhh [Moles/Vol]Chloride [Moles/volume] in Serum or PlasmaHigh 98-107Mer[facility] HospitalECG 12 lead ECGon 35-95-4777IGH 12 lead ECGOHIOHEALTH O'BLENESS [facility]PITAL [address] [address] Electrocardiograph Report Signed Patient: Hailee Trivedi MR#: [id number] 306 : 1940 Acct:[id number] Age/Sex: 84 / F ADM Date: 02/26/25 Loc: EL Room: Type: 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 Rate : 82 BPM Atrial Rate : 97 BPM P-R Int : * ms QRS Dur : 108 ms QT Int : 434 ms P-R-T Axes : * 62 84 degrees QTcB Int : 507 ms Atrial fibrillation Abnormal ECG When compared with ECG of 02-Jan-2025 09:59, Atrial fibrillation has replaced Sinus rhythm QRS duration has increased Confirmed by ELICIA RHODES MD ([id number]) on 02/26/2025 12:54:08 PM Referred By: Elicia Rhodes Electronically Signed By: ELICIA RHODES MD Transcribed By: MUS Signed By Elicia Rhodes MD 0 02/26/[address] [place] [address] Physician GroupECG post procedureon 02-26-2025 ECG [facility] Main [address] [address] Electrocardiograph Report Signed Patient: Hailee Trivedi MR#: [id number] : 1940 Acct:[id number] Age/Sex: 84 / F ADM Date: 02/26/25 Loc: EL Room: Type: [facility] Attending Dr: Jerrica Overton APRN Ordering Provider: Jerrica Overton APRN Date of Service: 02/26/25/ ECG/ECG post procedure: cv Copies to: Test Reason : Blood Pressure : 185/88 mmHG Vent. Rate : 70 BPM Atrial Rate : 70 BPM P-R Int : 252 ms QRS Dur : 108 ms QT Int : 452 ms P-R-T Axes : 72 68 82 degrees QTcB Int : 488 ms Sinus rhythm with 1st degree AV block Prolonged QT Abnormal ECG When compared with ECG of 26-Feb-2025 09:41, (Unconfirmed) Rhythm is now sinus Confirmed by ELICIA RHODES MD ([id number]) on 02/26/2025 12:54:30 PM Referred By: Elicia Rhodes Electronically Signed By: ELICIA RHODES MD Transcribed By: MUS Signed By Elicia Rhodes MD 0 02/26/[address] [place] [address] Physician GroupElectrolyteson 90-43-0480Mllim gap [Moles/Vol]9.0 mmol/LNormal6.0-15.0[facility] Physician GroupComment on above:Result Comment: PERFORMED BY: [place] [address] PATHOLOGIST SENIOR HR MANAGER CARLOS A CARD M.D.Performed By: #### LACTIC #### [place] [address] USAChloride [Moles/Vol]114 mmol/GPjea07-640Wgn [facility] Physician GroupComment on above:Performed By: #### LACTIC #### [place] [address] USACO2 [Moles/Vol]19.4 mmol/LLow21.0-31.0[facility] Physician GroupComment on above:Performed By: #### LACTIC #### [place] [address] USAPotassium [Moles/Vol]4.4 mmol/LNormal3.5-5.1[facility] Physician GroupComment on above:Performed By: #### LACTIC #### [place] [address] USASodium [Moles/Vol]138 mmol/HFadusi395-970Ikx [facility] Physician GroupComment on above:Performed By: #### LACTIC #### [place] [address] USAPotassium [Moles/volume] in Serum or PlasmaOrdered By: Elicia Rhodes on 80-09-6359Jyhazihii [Moles/Vol]Potassium [Moles/volume] in Serum or Plasma3.5-5.1FSalem City Hospitalerum or plasma anion gap determinationOrdered By: Elicia Rhodes on 66-16-6456Hften gap [Moles/Vol]Serum or plasma anion gap determination6.0-15.0[facility] Hospitalodium [Moles/volume] in Serum or PlasmaOrdered By: Elicia Rhodes on 61-01-3614Szrsvl [Moles/Vol]Sodium [Moles/volume] in Serum or Fjfknj741-489CkrmqnpvkMercy Health Fairfield HospitalBasophils Auto (Bld) [#/Vol]on 14-15-5234Ijcfhpdwk (Bld) [#/Vol]Automated basophil count0.0-0.1FWVUMedicine Harrison Community HospitalBasophils/100 WBC Auto (Bld)on 67-86-7116Mjpyhyuol/100 WBC (Bld)Automated basophil %0.2-2.0[facility] Eosinophils/100 WBC Auto (Bld)on 77-41-8093Ocdahhgilgv/100 WBC (Bld)Automated eosinophil %Low0.9-7.0[facility] HospitalErythrocyte distribution width Auto (RBC) [Ratio]on 60-12-8604Ahifunmyard distribution width (RBC) [Ratio]Erythrocyte distribution width [Ratio] by Automated count11.0-15.0 [facility] HospitalEstimated glomerular filtration rate (GFR) non- Americanon 51-51-9304TUV/1.73 sq M.predicted among non-blacks MDRD (S/P/Bld) [Vol rate/Area]Estimated glomerular filtration rate (GFR) non- AmericanLow>=60 mL/min/1.73m 2FWVUMedicine Harrison Community HospitalHematocrit Auto (Bld) [Volume fraction]on 00-44-6035Ghypjlrslj (Bld) [Volume fraction]Hematocrit [Volume Fraction] of Blood by Automated count36.0-48.0[facility] HospitalHemoglobin [Mass/volume] in Bloodon 41-09-3785Mfqsllhorm (Bld) [Mass/Vol] Hemoglobin [Mass/volume] in Blood12.0-16.0[facility] Laboratory - Chemistry and Chemistry - challengeon 11-84-3158Ougjdoh [Mass/Vol] 8.7 mg/dL8.5-10.1FWVUMedicine Harrison Community HospitalChloride [Moles/Vol]108 mmol/L Bpsx65-348WfrgpnvhsMercy Health Fairfield HospitalCO2 [Moles/Vol]19.1 mmol/LLow 21.0-32.0[facility] HospitalCreatinine [Mass/Vol]2.55 mg/dLHigh 0.55-1.02[facility] HospitalGFR/1.73 sq M.predicted MDRD (S/P/Bld) [Vol rate/Area]22 mL/min/{1.73_m2}Low>=60 mL/min/1.73m 2FWVUMedicine Harrison Community HospitalGlucose [Mass/Vol]106 mg/xS40-356RyolnslfnMercy Health Fairfield Hospital Potassium [Moles/Vol]4.4 mmol/L3.5-5.1FSalem City Hospitalodium [Moles/Vol]139 mmol/Y822-747IgfwqneafMercy Health Fairfield HospitalUrea nitrogen [Mass/Vol]37.0 mg/dLHigh7.0-18.0[facility] HospitalUrea nitrogen/Creatinine [Mass ratio]14.5 mg/mgMercy Health Fairfield Hospital Laboratory - Hematology and Cell countson 50-08-4798Addvxzto granulocytes/100 WBC (Bld)1.4 %High0.0-0.5FWVUMedicine Harrison Community HospitalLeukocytes [#/volume] corrected for nucleated erythrocytes in Blood by Automated counon 12-98-9930PRO corrected for nucl RBC Auto (Bld) [#/Vol]Leukocytes [#/volume] corrected for nucleated erythrocytes in Blood by Automated coun4.0-11.0[facility] HospitalLymphocytes Auto (Bld) [#/Vol]on 06-17-0830Jcgwwjmbgnq (Bld) [#/Vol]Lymphocytes [#/volume] in Blood by Automated count1.2-3.8[facility] HospitalLymphocytes/100 WBC Auto (Bld)on 02-11-2025 Lymphocytes/100 WBC (Bld)Lymphocytes/100 leukocytes in Blood by Automated count 20.5-60.0[facility] HospitalH Auto (RBC) [Entitic mass]on 74-82-3227SJS (RBC) [Entitic mass]MCH [Entitic mass] by Automated count26.7-34.0 [facility] HospitalMCHC Auto (RBC) [Mass/Vol]on 75-77-0360KLDK (RBC) [Mass/Vol]MCHC [Mass/volume] by Automated count29.9-35.2FProMedica Defiance Regional HospitalV Auto (RBC) [Entitic vol]on 82-25-9318NHY (RBC) [Entitic vol] MCV [Entitic volume] by Automated count81.0-99.0[facility] HospitalMonocytes Auto (Bld) [#/Vol]on 77-15-7565Jlhmxjknn (Bld) [#/Vol]Automated blood monocyte count0.3-0.8[facility] HospitalMonocytes/100 WBC Auto (Bld)on 57-68-4617Xkwkbxqex/100 WBC (Bld)Automated monocyte %1.7-12.0 [facility] HospitalNeutrophils Auto (Bld) [#/Vol]on 02-11-2025 Neutrophils (Bld) [#/Vol]Neutrophils [#/volume] in Blood by Automated countHigh 1.4-6.5FWVUMedicine Harrison Community HospitalNeutrophils/100 WBC Auto (Bld)on 85-12-9910Oskmkkivcek/100 WBC (Bld)Automated neutrophil %43.0-75.0[facility] HospitalNo Panel Informationon 69-78-7351Ogrgbntumkd # (Auto)0.1 10 3/uL0.0-0.7FWVUMedicine Harrison Community HospitalImmature Granulocyte # (Auto)0.14 10 3/uLHigh0.00-0.03[facility] HospitalTroponin I High Sensitivity8.0 pg/mL4.0-51.3FWVUMedicine Harrison Community HospitalComment on above: CUT-OFF POINTS HAVE BEEN ESTABLISHED BASED ON THE FOURTHUNIVERSAL DEFINITION OF MYOCARDIAL INFARCTION. THE UPPERREFERENCE LIMIT (URL) OF TROPONIN, DEFINED THE 99THPERCENTILE OF cTnI DISTRIBUTION IN A REFERENCE POPULATION,HAS BEEN CONFIRMED THE DECISION THRESHOLD FOR MIDIAGNOSIS.99TH PERCENTILE = 51.4 PG/MLNOTE: HIGH-SENSITIVITY TROPONIN ASSAY IS NOT INTENDED TO BEUSED IN ISOLATION BUT SHOULD BE INTERPRETED IN CONJUNCTIONWITH OTHER DIAGNOSTIC AND CLINICAL INFORMATION.Platelet mean volume Auto (Bld) [Entitic vol]on 02-11-2025 Platelet mean volume (Bld) [Entitic vol]Platelet mean volume [Entitic volume] in Blood by Automated count9.5-13.5FWVUMedicine Harrison Community HospitalPlatelets Auto (Bld) [#/Vol]on 81-49-6056Qgziuxpmr (Bld) [#/Vol]Platelets [#/volume] in Blood by Automated -136FsdyohiciMercy Health Fairfield HospitalRBC Auto (Bld) [#/Vol] on 98-13-3876HUH (Bld) [#/Vol]Erythrocytes [#/volume] in Blood by Automated countLow4.20-5.40[facility] Hospitalerum or plasma anion gap determinationon 12-47-9259Ksbzg gap [Moles/Vol]Serum or plasma anion gap determinationMercy Health Fairfield HospitalBasophils Auto (Bld) [#/Vol]on 22-05-9290Qtzxwqcvo (Bld) [#/Vol]Automated basophil count0.0-0.1FWVUMedicine Harrison Community HospitalBasophils/100 WBC Auto (Bld)on 30-82-7816Vgmfbrftt/100 WBC (Bld)Automated basophil %0.2-2.0[facility] Eosinophils/100 WBC Auto (Bld)on 31-96-5825Vblxpdunxcw/100 WBC (Bld)Automated eosinophil %0.9-7.0[facility] HospitalErythrocyte distribution width Auto (RBC) [Ratio]on 64-38-8202Nkypxuofzli distribution width (RBC) [Ratio]Erythrocyte distribution width [Ratio] by Automated count11.0-15.0 [facility] HospitalEstimated glomerular filtration rate (GFR) non- Americanon 75-75-9391PXE/1.73 sq M.predicted among non-blacks MDRD (S/P/Bld) [Vol rate/Area]Estimated glomerular filtration rate (GFR) non- AmericanLow>=60 mL/min/1.73m 2FWVUMedicine Harrison Community HospitalGlobulin Calc (S) [Mass/Vol]on 29-53-7385Ktvnoyst (S) [Mass/Vol]Serum globulin measurement by calculation (mass/volume)[facility] HospitalHematocrit Auto (Bld) [Volume fraction]on 10-22-9490Kaxtundbqv (Bld) [Volume fraction]Hematocrit [Volume Fraction] of Blood by Automated count36.0-48.0[facility] HospitalHemoglobin [Mass/volume] in Bloodon 18-26-8790Rtkvamjnan (Bld) [Mass/Vol] Hemoglobin [Mass/volume] in Blood12.0-16.0[facility] Laboratory - Chemistry and Chemistry - challengeon 88-32-3110Sxoiftw [Mass/Vol] 2.5 g/dLLow3.4-5.0[facility] HospitalALP [Catalytic activity/Vol] 120 U/VSddm10-905GyqnqxrgeMercy Health Fairfield HospitalALT [Catalytic activity/Vol]12 U/XXek22-93LjfeaezzsMercy Health Fairfield HospitalAST [Catalytic activity/Vol]12 U/L Uif67-19PyuntyekeMercy Health Fairfield HospitalBilirubin [Mass/Vol]0.2 mg/dL0.2-1.0 [facility] HospitalCalcium [Mass/Vol]8.4 mg/dLLow8.5-10.1FWVUMedicine Harrison Community HospitalChloride [Moles/Vol]112 mmol/BKlea12-251QntqewjuqMercy Health Fairfield HospitalCO2 [Moles/Vol]19.1 mmol/LLow21.0-32.0[facility] HospitalCreatinine [Mass/Vol]2.51 mg/dLHigh0.55-1.02[facility] HospitalGFR/1.73 sq M.predicted MDRD (S/P/Bld) [Vol rate/Area]22 mL/min/{1.73_m2}Low>=60 mL/min/1.73m 2FWVUMedicine Harrison Community HospitalGlucose [Mass/Vol]129 mg/eEQtay98-998ZynlqziztMercy Health Fairfield HospitalPotassium [Moles/Vol]4.3 mmol/L3.5-5.1FWVUMed[facility] Community HospitalProtein [Mass/Vol] 5.9 g/dLLow6.4-8.2FSalem City Hospitalodium [Moles/Vol]142 mmol/L 136-145Mer[facility] HospitalUrea nitrogen [Mass/Vol]53.0 mg/dLHigh 7.0-18.0[facility] HospitalUrea nitrogen/Creatinine [Mass ratio] 21.1 mg/mgMercy Health Fairfield HospitalLaboratory - Hematology and Cell countson 46-31-1611Bnvwrfds granulocytes/100 WBC (Bld)0.4 %0.0-0.5FWVUMedicine Harrison Community HospitalLeukocytes [#/volume] corrected for nucleated erythrocytes in Blood by Automated counon 95-32-4266NRD corrected for nucl RBC Auto (Bld) [#/Vol]Leukocytes [#/volume] corrected for nucleated erythrocytes in Blood by Automated coun4.0-11.0[facility] HospitalLymphocytes Auto (Bld) [#/Vol]on 75-95-2528Lahzbpdvesz (Bld) [#/Vol]Lymphocytes [#/volume] in Blood by Automated count1.2-3.8[facility] HospitalLymphocytes/100 WBC Auto (Bld)on 20-43-5902Oirgzpwagiu/100 WBC (Bld)Lymphocytes/100 leukocytes in Blood by Automated count20.5-60.0[facility] HospitalH Auto (RBC) [Entitic mass]on 54-17-1592GXI (RBC) [Entitic mass]MCH [Entitic mass] by Automated count26.7-34.0[facility] HospitalMCHC Auto (RBC) [Mass/Vol]on 13-11-5914FAKJ (RBC) [Mass/Vol]MCHC [Mass/volume] by Automated count29.9-35.2FWVUMedicine Harrison Community HospitalMCV Auto (RBC) [Entitic vol]on 37-43-0428DKR (RBC) [Entitic vol]MCV [Entitic volume] by Automated count 81.0-99.0[facility] HospitalMonocytes Auto (Bld) [#/Vol]on 23-19-4128Xtzipgvrq (Bld) [#/Vol]Automated blood monocyte count0.3-0.8[facility] HospitalMonocytes/100 WBC Auto (Bld)on 25-23-5639Lzsuhbqkg/100 WBC (Bld)Automated monocyte %1.7-12.0[facility] Neutrophils Auto (Bld) [#/Vol]on 71-10-5237Bhxxzibmenq (Bld) [#/Vol]Neutrophils [#/volume] in Blood by Automated count1.4-6.5[facility] Neutrophils/100 WBC Auto (Bld)on 00-87-2395Bfsvdrlrsmw/100 WBC (Bld)Automated neutrophil %43.0-75.0[facility] HospitalNo Panel Informationon 60-86-3430Jwumngywizd # (Auto)0.2 10 3/uL0.0-0.7FWVUMedicine Harrison Community HospitalImmature Granulocyte # (Auto)0.03 10 3/uL0.00-0.03[facility] HospitalVenous Blood Partial Pressure CO240.3 mm[Hg]40.0-52.0[facility] HospitalVenous Blood pH7.817Pqt5.330-7.430[facility]40.3 mm[Hg]40.0-52.0[facility]7.233Low 7.330-7.430[facility]0.2 10 3/uL0.0-0.7FW[facility] Hospital2.5 g/dLLow3.4-5.0[facility]120 U/LHigh 46-116[facility]12 U/UOnq44-86XkqoqicurMercy Health Fairfield Hospital0.03 10 3/uL0.00-0.03[facility]21.1FW[facility] Hospital0.4 %0.0-0.5FW[facility]53.0 mg/dL High7.0-18.0[facility]8.4 mg/dLLow8.5-10.1[facility]112 mmol/AKlsj63-144LbobrpykzMercy Health Fairfield Hospital19.1 mmol/LLow21.0-32.0[facility]2.51 mg/dLHigh0.55-1.02 [facility]22Low>=60 mL/min/1.73m 2[facility]129 mg/wWNypf77-064BmiluywyeMercy Health Fairfield Hospital4.3 mmol/L 3.5-5.1[facility]142 mmol/P928-138IvsmjvgfdMercy Health Fairfield Hospital0.2 mg/dL0.2-1.0[facility]5.9 g/dLLow 6.4-8.2FWVUM[facility] Harrison Community HospitalPlatelet mean volume Auto (Bld) [Entitic vol]on 11-12-7003Fjwlnoze mean volume (Bld) [Entitic vol]Platelet mean volume [Entitic volume] in Blood by Automated count9.5-13.5FWVUMedicine Harrison Community HospitalPlatelets Auto (Bld) [#/Vol]on 14-21-3067Opgvvyyle (Bld) [#/Vol]Platelets [#/volume] in Blood by Automated -077AgskadlulMercy Health Fairfield Hospital RBC Auto (Bld) [#/Vol]on 54-41-2890VDV (Bld) [#/Vol]Erythrocytes [#/volume] in Blood by Automated countLow4.20-5.40[facility] Hospitalerum or plasma albumin/globulin mass ratioon 25-42-9820Cilgtbj/Globulin [Mass ratio] Serum or plasma albumin/globulin mass ratioMercy Health Fairfield Hospital Serum or plasma anion gap determinationon 75-21-0219Deshl gap [Moles/Vol]Serum or plasma anion gap determinationMercy Health Fairfield HospitalBasophils Auto (Bld) [#/Vol]on 07-05-3835Enalcpvfc (Bld) [#/Vol]Automated basophil count 0.0-0.1FWVUM[facility] Community HospitalBasophils/100 WBC Auto (Bld)on 70-95-0880Tgigaklun/100 WBC (Bld)Automated basophil %0.2-2.0[facility] HospitalEosinophils/100 WBC Auto (Bld)on 34-31-4230Mweeyyhyloo/100 WBC (Bld)Automated eosinophil %Low0.9-7.0[facility] Erythrocyte distribution width Auto (RBC) [Ratio]on 24-51-9551Jfhdpzhjddu distribution width (RBC) [Ratio]Erythrocyte distribution width [Ratio] by Automated count11.0-15.0[facility] HospitalEstimated glomerular filtration rate (GFR) non- Americanon 97-64-8810ETR/1.73 sq M.predicted among non-blacks MDRD (S/P/Bld) [Vol rate/Area]Estimated glomerular filtration rate (GFR) non- AmericanLow>=60 mL/min/1.73m 2FWVUMed[facility] Harrison Community HospitalGlobulin Calc (S) [Mass/Vol]on 67-56-2218Zosepvkc (S) [Mass/Vol]Serum globulin measurement by calculation (mass/volume)[facility] HospitalHematocrit Auto (Bld) [Volume fraction]on 82-65-2794Dvdslgptho (Bld) [Volume fraction]Hematocrit [Volume Fraction] of Blood by Automated count 36.0-48.0[facility] HospitalHemoglobin [Mass/volume] in Bloodon 99-08-4846Ehqopihvyc (Bld) [Mass/Vol]Hemoglobin [Mass/volume] in Blood12.0-16.0 [facility] HospitalINR in Platelet poor plasma by Coagulation assayon 04-05-7930JHJ Coag (PPP) [Relative time]INR in Platelet poor plasma by Coagulation assayMercy Health Fairfield HospitalComment on above:DESIRED INR:2.0-3.0 CONDITIONS NOT LISTED BELOW2.5-3.5 FOR PROSTHETIC HEART VALVE REPLACEMENT2.5-3.5 RECURRENT THROMBOSISLaboratory - Chemistry and Chemistry - challengeon 90-08-1238Jdvuudx [Mass/Vol]2.9 g/dLLow3.4-5.0[facility] HospitalALP [Catalytic activity/Vol]145 U/CQkxn03-105WlwqvdajaMercy Health Fairfield HospitalALT [Catalytic activity/Vol]18 U/Y86-38JevkeetdvMercy Health Fairfield HospitalAST [Catalytic activity/Vol]16 U/M36-41IgkeuwdtnMercy Health [facility] Hospital Bilirubin [Mass/Vol]0.3 mg/dL0.2-1.0[facility] HospitalCalcium [Mass/Vol]9.0 mg/dL8.5-10.1FWVUM[facility] Community HospitalChloride [Moles/Vol] 108 mmol/YCwjd66-174ZegwusbfaMercy Health Fairfield HospitalCO2 [Moles/Vol]19.5 mmol/L Low21.0-32.0[facility] HospitalCreatinine [Mass/Vol]2.90 mg/dLHigh 0.55-1.02[facility] HospitalGFR/1.73 sq M.predicted MDRD (S/P/Bld) [Vol rate/Area]19 mL/min/{1.73_m2}Low>=60 mL/min/1.73m 2FWVUM[facility] Harrison Community HospitalGlucose [Mass/Vol]154 mg/mVEmoz95-369WelmepufnMercy Health Fairfield HospitalLactate [Moles/Vol]0.9 mmol/L0.4-2.0[facility] Magnesium [Mass/Vol]2.0 mg/dL1.8-2.4FWVUM[facility] Harrison Community HospitalPotassium [Moles/Vol]4.6 mmol/L3.5-5.1FWV[facility] Community HospitalProtein [Mass/Vol] 7.0 g/dL6.4-8.2FSalem City Hospitalodium [Moles/Vol]139 mmol/L 136-145Mer[facility] HospitalTSH Qn2.614 m[IU]/L0.358-3.740[facility] HospitalUrea nitrogen [Mass/Vol]61.0 mg/dLHigh7.0-18.0[facility] HospitalUrea nitrogen/Creatinine [Mass ratio]21.0 mg/mgMercy Health Fairfield HospitalLaboratory - Hematology and Cell countson 02-04-2025 Immature granulocytes/100 WBC (Bld)0.3 %0.0-0.5FWV[facility] Laboratory - Microbiology and Antimicrobial susceptibilityon 02-04-2025 SARS-CoV-2 (COVID-19) RNA RADHA+probe Ql (Unsp spec)NegativeNEGATIVEMercy Health Fairfield HospitalComment on above:This test has not been FDA cleared or approved, but has beenauthorized by the FDA under an Emergency Use Authorization(EUA) for use by authorized laboratories certified underIA that meet the requirements to perform moderate or highcomplexity testing. This test has been authorized only forthe detection of proteins from SARS-CoV-2, not for any otherviruses or pathogens. The emergency use of this test isauthorized for the duration of the declaration thatcircumstances exist justifying the authoriz ation ofemergency use of in vitro diagnostic tests for detectionand/or diagnosis of Covid-19 under section 564(b)(1) of theAct, U.S.C. 360bbb-3(b)(1), unless the declaration isterminated or authorization is revoked sooner.Leukocytes [#/volume] corrected for nucleated erythrocytes in Blood by Automated counon 57-92-0552JZF corrected for nucl RBC Auto (Bld) [#/Vol]Leukocytes [#/volume] corrected for nucleated erythrocytes in Blood by Automated coun4.0-11.0[facility] HospitalLymphocytes Auto (Bld) [#/Vol]on 46-75-2107Seqqokaxbsk (Bld) [#/Vol]Lymphocytes [#/volume] in Blood by Automated count1.2-3.8[facility] HospitalLymphocytes/100 WBC Auto (Bld)on 02-04-2025 Lymphocytes/100 WBC (Bld)Lymphocytes/100 leukocytes in Blood by Automated count 20.5-60.0[facility] HospitalH Auto (RBC) [Entitic mass]on 88-28-4772ATM (RBC) [Entitic mass]MCH [Entitic mass] by Automated count26.7-34.0 [facility] HospitalMCHC Auto (RBC) [Mass/Vol]on 68-19-0210JZOX (RBC) [Mass/Vol]MCHC [Mass/volume] by Automated count29.9-35.2FWVUMedicine Harrison Community HospitalMCV Auto (RBC) [Entitic vol]on 89-56-2487YSW (RBC) [Entitic vol] MCV [Entitic volume] by Automated count81.0-99.0[facility] HospitalMonocytes Auto (Bld) [#/Vol]on 83-69-2745Fecdclgah (Bld) [#/Vol]Automated blood monocyte count0.3-0.8[facility] HospitalMonocytes/100 WBC Auto (Bld)on 20-33-3479Mpzssemur/100 WBC (Bld)Automated monocyte %1.7-12.0 [facility] HospitalNeutrophils Auto (Bld) [#/Vol]on 02-04-2025 Neutrophils (Bld) [#/Vol]Neutrophils [#/volume] in Blood by Automated countHigh 1.4-6.5FWVUMed[facility] Harrison Community HospitalNeutrophils/100 WBC Auto (Bld)on 49-85-9070Pmdvesuzzxy/100 WBC (Bld)Automated neutrophil %43.0-75.0[facility] HospitalNo Panel Informationon 36-04-5193Ejzffro Influenza Type A AntigenNegativeMercy Health Fairfield HospitalComment on above:Negative for Flu A protein antigen. Infection due to Flu Acannot be ruled out. Flu A antigen in thesample may bebelow the detection limit of the test.Bedside Influenza Type B AntigenNegativeMercy Health Fairfield HospitalComment on above:Negative for Flu B protein antigen. Infection due to Flu Bcannot be ruled out. Flu B antigen in thesample may bebelow the detection limit of the test.NegativeMercy Health Fairfield HospitalEosinophils # (Auto)0.1 10 3/uL0.0-0.7FWVUMedicine Harrison Community HospitalImmature Granulocyte # (Auto)0.03 10 3/uL0.00-0.03[facility] HospitalTroponin I High Snuraiipqks25.5 pg/mL4.0-51.3FWVUMedicine Harrison Community HospitalComment on above:CUT-OFF POINTS HAVE BEEN ESTABLISHED BASED ON THE FOURTHUNIVERSAL DEFINITION OF MYOCARDIAL INFARCTION. THE UPPERREFERENCE LIMIT (URL) OF TROPONIN, DEFINED THE 99THPERCENTILE OF cTnI DISTRIBUTION IN A REFERENCE POPULATION,HAS BEEN CONFIRMED THE DECISION THRESHOLD FOR MIDIAGNOSIS.99TH PERCENTILE = 51.4 PG/MLNOTE: HIGH-SENSITIVITY TROPONIN ASSAY IS NOT INTENDED TO BEUSED IN ISOLATION BUT SHOULD BE INTERPRETED IN CONJUNCTIONWITH OTHER DIAGNOSTIC AND CLINICAL INFORMATION.Venous Blood Partial Pressure CO234.8 mm[Hg]Low40.0-52.0[facility] Venous Blood pH7.171Ali9.330-7.430[facility]2.614 u[iU]/mL0.358-3.740[facility]10.5 pg/mL4.0-51.3FW[facility]2.0 mg/dL1.8-2.4FW[facility] Hospital0.9 mmol/L0.4-2.0[facility]34.8 mm[Hg]Low40.0-52.0[facility]7.316Imc4.330-7.430[facility]0.1 10 3/uL0.0-0.7FW[facility] Hospital2.9 g/dLLow3.4-5.0[facility]145 U/NWise25-208QunsglpleMercy Health Fairfield Hospital18 U/L 14-59[facility]16 U/J58-61IjorpxnqqMercy Health Fairfield Hospital0.03 10 3/uL0.00-0.03[facility]21.0[facility]0.3 %0.0-0.5FW[facility]61.0 mg/dL High7.0-18.0[facility]9.0 mg/dL8.5-10.1FW[facility]108 mmol/SWbyk57-914ZcrcwzwuuMercy Health Fairfield Hospital19.5 mmol/L Low21.0-32.0[facility]2.90 mg/dLHigh0.55-1.02[facility]19Low>=60 mL/min/1.73m 2FW[facility] 154 mg/oPLdrs17-245QbyucltfoMercy Health Fairfield Hospital4.6 mmol/L3.5-5.1[facility]139 mmol/P916-222MzqyymbdkMercy Health [facility]field Hospital0.3 mg/dL0.2-1.0[facility]7.0 g/dL6.4-8.2[facility] HospitalPlatelet mean volume Auto (Bld) [Entitic vol]on 37-05-0911Qipuiwpv mean volume (Bld) [Entitic vol]Platelet mean volume [Entitic volume] in Blood by Automated count9.5-13.5[facility] HospitalPlatelets Auto (Bld) [#/Vol]on 08-19-7927Gylhgfdaa (Bld) [#/Vol]Platelets [#/volume] in Blood by Automated -406FzvprkvmwMercy Health Fairfield HospitalProthrombin time (PT)on 74-58-6659CC Coag (PPP) [Time]Prothrombin time (PT)9.0-11.6FWVUMedicine Harrison Community HospitalRBC Auto (Bld) [#/Vol]on 77-65-8622CVK (Bld) [#/Vol]Erythrocytes [#/volume] in Blood by Automated count4.20-5.40[facility] Serum or plasma albumin/globulin mass ratioon 96-92-6704Cstzzax/Globulin [Mass ratio]Serum or plasma albumin/globulin mass ratioEast Liverpool City Hospitalerum or plasma anion gap determinationon 51-35-8037Qalcn gap [Moles/Vol] Serum or plasma anion gap determinationMercy Health Fairfield HospitalCarbon dioxide, total [Moles/volume] in Serum or PlasmaOrdered By: Elicia Rhodes on 23-45-4643DF5 [Moles/Vol]Carbon dioxide, total [Moles/volume] in Serum or Hodeya04.0-31.0[facility] HospitalChloride [Moles/volume] in Serum or PlasmaOrdered By: Elicia Rhodes on 06-71-3592Isenejxf [Moles/Vol] Chloride [Moles/volume] in Serum or KeyogrXieq82-754Kurg[address] [place], [place] [address]ECG 12 lead ECGon 78-03-6709HYB 12 lead ECGOHIOHEALTH O[facility] [place] [address] Electrocardiograph Report Signed Patient: Hailee Trivedi MR#: [id number] : 1940 Acct:[id number] Age/Sex: 84 / F ADM Date: 01/02/25 Loc: Room: Type: [facility] Attending Dr: Elicia Rhodes MD Ordering Provider: [...] in Lateral leads Confirmed by Reyes Echevarria ([id number]) on 01/02/2025 2:56:23 PM Referred By: Elicia Rhodes Electronically Signed By: Reyes Echevarria Transcribed By: ALLA Signed By Reyes Echevarria MD 01/02/[address] [place] [address] Physician GroupECG post procedureon 01-02-2025 ECG [facility]OH[facility] Main [place] [address] [place] [address] Electrocardiograph Report Signed Patient: Hailee Trivedi MR#: [id number] : 1940 Acct:[id number] Age/Sex: 84 / F ADM Date: 01/02/25 Loc: Room: Type: [facility] Attending Dr: Elicia Rhodes MD Ordering Provider: [...] replaced Atrial fibrillation Confirmed by Reyes Echevarria ([id number]) on 01/02/2025 2:54:48 PM Referred By: Elicia Rhodes Electronically Signed By: Reyes Echevarria Transcribed By: ALLA Signed By Reyes Echevarria MD 01/02/[address] [place] [address] Physician GroupElectrolyteson 95-50-3014Zswya gap [Moles/Vol]10.4 mmol/LNormal6.0-15.0[facility] Physician GroupComment on above:Result Comment: PERFORMED BY: [facility] [place] [address] PATHOLOGIST SENIOR HR MANAGER CARLOS A CARD M.D.Performed By: #### GLULS #### Point of Care testing ,Chloride [Moles/Vol]109 mmol/ZJziu08-813Rfg [facility] Physician GroupComment on above:Performed By: #### GLULS #### Point of Care testing ,CO2 [Moles/Vol]23.8 mmol/ORxdtot35.0-31.0[facility] Physician GroupComment on above:Performed By: #### GLULS #### Point of Care testing ,Potassium [Moles/Vol]4.2 mmol/LNormal3.5-5.1[facility] Comment on above:Performed By: #### GLULS #### Point of Care testing ,Sodium [Moles/Vol]139 mmol/NZghiyv027-807Yls [facility] Physician GroupComment on above:Performed By: #### GLULS #### Point of Care testing ,Potassium [Moles/volume] in Serum or PlasmaOrdered By: Elicia Rhodes on 52-16-8900Apghznynz [Moles/Vol]Potassium [Moles/volume] in Serum or Plasma 3.5-5.1FSalem City Hospitalerum or plasma anion gap determination Ordered By: Elicia Rhodes on 89-80-5896Pmmfh gap [Moles/Vol]Serum or plasma anion gap determination6.0-15.0East Liverpool City Hospitalodium [Moles/volume] in Serum or PlasmaOrdered By: Elicia Rhodes on 01-02-2025 Sodium [Moles/Vol]Sodium [Moles/volume] in Serum or Rkuidr439-722BekxjvhgcMercy Health Fairfield HospitalEstimated glomerular filtration rate (GFR) non- Americanon 95-06-7013RRF/1.73 sq M.predicted among non-blacks MDRD (S/P/Bld) [Vol rate/Area]Estimated glomerular filtration rate (GFR) non- Low>=60 mL/min/1.73m 2FWVUMedicine Harrison Community HospitalLaboratory - Chemistry and Chemistry - challengeon 69-59-1693Aeiyqoo [Mass/Vol]3.6 g/dL3.4-5.0[facility] HospitalCalcium [Mass/Vol]9.0 mg/dL8.5-10.1FWVUMedicine Harrison Community HospitalChloride [Moles/Vol]106 mmol/G28-119OeytwidrdMercy Health Fairfield HospitalCO2 [Moles/Vol]26.6 mmol/L21.0-32.0[facility] Creatinine [Mass/Vol]2.63 mg/dLHigh0.55-1.02[facility] GFR/1.73 sq M.predicted MDRD (S/P/Bld) [Vol rate/Area]21 mL/min/{1.73_m2}Low>=60 mL/min/1.73m 2FWVUMedicine Harrison Community HospitalGlucose [Mass/Vol]148 mg/dLHigh 74-106[facility] HospitalPotassium [Moles/Vol]4.9 mmol/L3.5-5.1 [facility] City Hospitalodium [Moles/Vol]139 mmol/R819-984ZtsgwopysMercy Health Fairfield HospitalUrea nitrogen [Mass/Vol]30.0 mg/dLHigh7.0-18.0[facility] HospitalUrea nitrogen/Creatinine [Mass ratio]11.4 mg/mgMercy Health Fairfield HospitalNo Panel Informationon 77-62-7261Snprjxzklz Level4.0 mg/dL2.6-4.7FWVUMedicine [facility] Hospital3.6 g/dL3.4-5.0[facility]11.4FW[facility]30.0 mg/dLHigh7.0-18.0 [facility]9.0 mg/dL8.5-10.1[facility]106 mmol/I05-055VmrmrxvgeMercy Health Fairfield Hospital26.6 mmol/L21.0-32.0 [facility]2.63 mg/dLHigh0.55-1.02[facility]21Low>=60 mL/min/1.73m 2FW[facility]148 mg/dL Jcza99-454CthvrmqcjMercy Health Fairfield Hospital4.9 mmol/L3.5-5.1FW[facility]139 mmol/X081-542RpyhhgopfMercy Health Fairfield Hospital4.0 mg/dL2.6-4.7 [facility] City Hospitalerum or plasma anion gap determinationon 27-73-8228Xfsyw gap [Moles/Vol]Serum or plasma anion gap determinationMercy Health Fairfield HospitalEstimated glomerular filtration rate (GFR) non- Americanon 00-93-9465QNW/1.73 sq M.predicted among non-blacks MDRD (S/P/Bld) [Vol rate/Area]Estimated glomerular filtration rate (GFR) non- Low>=60 mL/min/1.73m 2FWVUMedicine [facility] Community HospitalLaboratory - Chemistry and Chemistry - challengeon 12-19-0827Rttmlzk [Mass/Vol]3.3 g/dLLow3.4-5.0 [facility] HospitalCalcium [Mass/Vol]8.5 mg/dL8.5-10.1FWVUMedicine Harrison Community HospitalChloride [Moles/Vol]103 mmol/D88-924WypzpqrpdMercy Health Fairfield HospitalCO2 [Moles/Vol]28.6 mmol/L21.0-32.0[facility] HospitalCreatinine [Mass/Vol]2.86 mg/dLHigh0.55-1.02[facility] HospitalGFR/1.73 sq M.predicted MDRD (S/P/Bld) [Vol rate/Area]19 mL/min/{1.73_m2} Low>=60 mL/min/1.73m 2FWVUMedicine Harrison Community HospitalGlucose [Mass/Vol]122 mg/uUHiwe44-837MpcomvahrMercy Health Fairfield HospitalPotassium [Moles/Vol]4.2 mmol/L 3.5-5.1FSalem City Hospitalodium [Moles/Vol]140 mmol/N288-448 [facility] HospitalUrea nitrogen [Mass/Vol]36.0 mg/dLHigh7.0-18.0 [facility] HospitalUrea nitrogen/Creatinine [Mass ratio]12.6 mg/mg [facility] HospitalNo Panel Informationon 85-70-4982Pvnplbkocs Level4.5 mg/dL2.6-4.7FW[facility]3.3 g/dLLow3.4-5.0 [facility]12.6FW[facility]36.0 mg/dL High7.0-18.0[facility]8.5 mg/dL8.5-10.1[facility]103 mmol/T06-302NfbnjhqfuMercy Health Fairfield Hospital28.6 mmol/L 21.0-32.0[facility]2.86 mg/dLHigh0.55-1.02[facility]19Low>=60 mL/min/1.73m 2[facility] 122 mg/eMEded82-489QhggyzhqxMercy Health Fairfield Hospital4.2 mmol/L3.5-5.1FW[facility]140 mmol/N234-572TwvjfsosyMercy Health Fairfield Hospital4.5 mg/dL2.6-4.7FSalem City Hospitalerum or plasma anion gap determinationon 86-25-8228Whxan gap [Moles/Vol]Serum or plasma anion gap determinationMercy Health Fairfield HospitalBasic Metabolic Panelon 12-22-2024 Anion gap [Moles/Vol]9.8 mmol/LNormal6.0-15.0[facility] Comment on above:Performed By: #### BMP ####[facility] [place] [address] USACalcium [Mass/Vol]7.5 mg/dLLow8.6-10.3[facility] Physician GroupComment on above:Performed By: #### BMP ####[facility] [place] [address] USAChloride [Moles/Vol] 114 mmol/TJjji16-923Anz [facility] Physician GroupComment on above:Performed By: #### BMP ####[facility] [address] [place] [address] USACO2 [Moles/Vol]20.7 mmol/LLow21.0-31.0[facility] Physician GroupComment on above:Performed By: #### BMP ####[facility] [address] [place] [address] USACreatinine [Mass/Vol]1.87 mg/dLSignificant change up 0.60-1.20[facility] Physician GroupComment on above:Performed By: #### BMP ####[facility] [place] [address] [place] Creatinine Clr Calc Gzejkswn04.92NoNovant Health Presbyterian Medical Center Physician GroupComment on above:Result Comment: PERFORMED BY: [facility] [address] [place] [address] PATHOLOGIST SENIOR HR MANAGER CARLOS A CARD M.D.Performed By: #### BMP ####[place] [address] [place] [address] USAEstimated GFR26.539 mL/MinNoNovant Health Presbyterian Medical Center Physician GroupComment on above:Performed By: #### BMP ####[address] [place] [address] USAGlucose [Mass/Vol]126 mg/rBGubs59-299You [facility] Physician GroupComment on above:Result Comment: Random Glucose Reference Range is dependent on time and content of last meal. Glucose of more than 200 mg/dL in a nonstressed, ambulatory subject supports the diagnosis of Diabetes Mellitus. ADA recommended reference rangePerformed By: #### BMP ####[address] [address] USAPotassium [Moles/Vol]3.5 mmol/LNormal3.5-5.1The [facility] Physician GroupComment on above:Performed By: #### BMP ####[address] [address] USASodium [Moles/Vol]141 mmol/LRtcoyn356-789Ugv [facility] Physician GroupComment on above:Performed By: #### BMP ####[address] [address] USAUrea nitrogen [Mass/Vol]25 mg/dLNormal7-25The [facility] Physician GroupComment on above:Performed By: #### BMP ####[address] [address] USACalcium [Mass/volume] in Serum or PlasmaOrdered By: Alivia Arana on 18-67-6707Pjpnfol [Mass/Vol] Calcium [Mass/volume] in Serum or PlasmaLow8.6-10.3FWVUMedicine Harrison Community HospitalCarbon dioxide, total [Moles/volume] in Serum or PlasmaOrdered By: Alivia Arana on 72-78-7414EA9 [Moles/Vol]Carbon dioxide, total [Moles/volume] in Serum or FtzlrnDhh18.0-31.0[facility] HospitalChloride [Moles/volume] in Serum or PlasmaOrdered By: Alivia Arana on 00-59-1473Yzxqkgyv [Moles/Vol] Chloride [Moles/volume] in Serum or SkcshnEfdr31-865JwhsivfazMercy Health Fairfield HospitalCreatinine [Mass/volume] in Serum or PlasmaOrdered By: Alivia Arana on 98-58-8115Cwducvdyti [Mass/Vol]Creatinine [Mass/volume] in Serum or Plasma Invalid Interpretation Code0.60-1.20[facility] HospitalComment on above:Delta: 2.42 on 12/21/24-0500Glucose Glucometer (BldC) [Mass/Vol]Ordered By: Jonathan Valenzuela on 69-08-9961Wwbjpza [Mass/Vol]Capillary blood glucose measurement by glucometer (mass/volume)[facility] HospitalComment on above:Random Glucose Reference Range is dependent on time and content of last meal. Glucose of more than 200 mg/dL in a nonstressed, ambulatory subject supports the diagnosis of Diabetes Mellitus.Glucose Poct Glucometerson 43-14-5448Mzcscsn [Mass/Vol]180 mg/dLNoNovant Health Presbyterian Medical Center Physician GroupComment on above:Result Comment: Random Glucose Reference Range is dependent on time and content of last meal. Glucose of more than 200 mg/dL in a nonstressed, ambulatory subject supports the diagnosis of Diabetes Mellitus. PERFORMED BY: [facility] [address] [place] [address] PATHOLOGIST SENIOR HR MANAGER CARLOS A CARD M.D.Performed By: #### GLULS #### Point of Care testing ,Glucose [Mass/Vol]155 mg/dLNoNovant Health Presbyterian Medical Center Physician GroupComment on above: Result Comment: Random Glucose Reference Range is dependent on time and content of last meal. Glucose of more than 200 mg/dL in a nonstressed, ambulatory subject supports the diagnosis of Diabetes Mellitus. PERFORMED BY: [facility] [place] [address] PATHOLOGIST SENIOR HR MANAGER CARLOS A CARD M.D.Performed By: #### GLULS ####Point of Care testing, Glucose [Mass/volume] in Serum or PlasmaOrdered By: Alivia Arana on 12-22-2024 Glucose [Mass/Vol]Glucose [Mass/volume] in Serum or MjunofJcuk43-844PagjkbxaaMercy Health Fairfield HospitalComment on above:ADA recommended reference rangeRandom Glucose Reference Range is dependent on time and content of last meal. Glucose of more than 200 mg/dL in a nonstressed, ambulatory subject supports the diagnosisof Diabetes Mellitus.No Panel InformationOrdered By: Alivia Arana on 31-96-6173Uiwhhnpgi GFR (CKD-EPI)26.539 mL/MinMercy Health Fairfield Hospital Pharmacy Creatinine Clearance (Chem25.92[facility]26.539 mL/[facility]25.92[facility] Potassium [Moles/volume] in Serum or PlasmaOrdered By: Alivia Arana on 12-22-2024 Potassium [Moles/Vol]Potassium [Moles/volume] in Serum or Plasma3.5-5.1FSalem City Hospitalerum or plasma anion gap determinationOrdered By: Alivia Arana on 41-66-6500Zooya gap [Moles/Vol]Serum or plasma anion gap determination 6.0-15.0[facility] City Hospitalodium [Moles/volume] in Serum or PlasmaOrdered By: Alivia Arana on 55-97-7104Dmwgqb [Moles/Vol]Sodium [Moles/volume] in Serum or Bxklbh642-050MecjgapewMercy Health Fairfield HospitalUrea nitrogen [Mass/volume] in Serum or PlasmaOrdered By: Alivia Arana on 12-22-2024 Urea nitrogen [Mass/Vol]Urea nitrogen [Mass/volume] in Serum or Plasma7-25 [facility] HospitalBasic Metabolic Panelon 97-80-9384Rppht gap [Moles/Vol]11.1 mmol/LNormal6.0-15.0[facility] Physician GroupComment on above:Performed By: #### LACTIC #### [place] [address] USACalcium [Mass/Vol]8.6 mg/dLNormal8.6-10.3The [facility] Physician GroupComment on above:Performed By: #### LACTIC #### [place] [address] USAChloride [Moles/Vol]109 mmol/JUalf91-411Vxx [facility] Physician GroupComment on above:Performed By: #### LACTIC #### [place] [address] USACO2 [Moles/Vol]23.1 mmol/FFkugzt01.0-31.0[facility] Physician GroupComment on above:Performed By: #### LACTIC #### [place] [address] USACreatinine [Mass/Vol]2.42 mg/dLHigh0.60-1.20The [facility] Physician GroupComment on above:Performed By: #### LACTIC #### [place] [address] USACreatinine Clr Calc Sdrwruuw57.03NoNovant Health Presbyterian Medical Center Physician GroupComment on above:Result Comment: PERFORMED BY: [place] [address] PATHOLOGIST SENIOR HR MANAGER CARLOS A CARD M.D.Performed By: #### LACTIC #### [place] [address] USAEstimated GFR19.477 mL/MinNoNovant Health Presbyterian Medical Center Physician GroupComment on above:Performed By: #### LACTIC #### [place] [address] USAGlucose [Mass/Vol]147 mg/tPVljw76-527Mpt [facility] Physician GroupComment on above:Result Comment: Random Glucose Reference Range is dependent on time and content of last meal. Glucose of more than 200 mg/dL in a nonstressed, ambulatory subject supports the diagnosis of Diabetes Mellitus. ADA recommended reference rangePerformed By: #### LACTIC #### [address] [place] [address] USAPotassium [Moles/Vol]4.2 mmol/LNormal3.5-5.1The [facility] Physician GroupComment on above:Performed By: #### LACTIC #### [place] [address] USASodium [Moles/Vol]139 mmol/JFrfpvg379-067Fcl [facility] Physician GroupComment on above:Performed By: #### LACTIC #### [place] [address] USAUrea nitrogen [Mass/Vol]28 mg/dLHigh7-25The [facility] Physician GroupComment on above:Performed By: #### LACTIC #### [place] [address] USAGlucose Poct Glucometerson 56-09-6905Ddmgumr [Mass/Vol]116 mg/dLNoNovant Health Presbyterian Medical Center Physician [facility] HospitalComment on above:Result Comment: Random Glucose Reference Range is dependent on time and content of last meal. Glucose of more than 200 mg/dL in a nonstressed, ambulatory subject supports the diagnosis of Diabetes Mellitus. PERFORMED BY: [place] [address] PATHOLOGIST SENIOR HR MANAGER CARLOS A CARD M.D.Performed By: #### GLULS ####Point of Care testing, Glucose [Mass/Vol]146 mg/dLEd [facility] Physician [facility] HospitalComment on above: Result Comment: Random Glucose Reference Range is dependent on time and content of last meal. Glucose of more than 200 mg/dL in a nonstressed, ambulatory subject supports the diagnosis of Diabetes Mellitus. PERFORMED BY: [place] [address] PATHOLOGIST SENIOR HR MANAGER CARLOS A CARD M.D.Performed By: #### GLULS ####Point of Care testing, Glucose [Mass/Vol]165 mg/dLEd [facility] Physician GroupComment on above: Result Comment: Random Glucose Reference Range is dependent on time and content of last meal. Glucose of more than 200 mg/dL in a nonstressed, ambulatory subject supports the diagnosis of Diabetes Mellitus. PERFORMED BY: [facility] [address] [place] [address] PATHOLOGIST SENIOR HR MANAGER CARLOS A CARD M.D.Performed By: #### GLULS ####Point of Care testing, Vrcvowy2Vak8: Cleaned [facility] Physician GroupComment on above: Result Comment: PERFORMED BY: [facility] [address] [place] [address] PATHOLOGIST SENIOR HR MANAGER CARLOS A CARD M.D.Performed By: #### GLULS ####Point of Care testing, Glucose [Mass/Vol]155 mg/dLNoNovant Health Presbyterian Medical Center Physician GroupComment on above: Result Comment: Random Glucose Reference Range is dependent on time and content of last meal. Glucose of more than 200 mg/dL in a nonstressed, ambulatory subject supports the diagnosis of Diabetes Mellitus.Performed By: #### GLULS ####Point of Care testing,No Panel InformationOrdered By: Jonathan Valenzuela on 68-50-2915Jcirymp Glucose CommentGlu2: cleaned [facility] HospitalGlu2: cleaned [facility] HospitalBasic Metabolic Panelon 29-04-0683Lfnaa gap [Moles/Vol] 10.7 mmol/LNormal6.0-15.0[facility] Physician GroupComment on above:Performed By: #### BMP, CBC ####[address] [address] USACalcium [Mass/Vol]8.7 mg/dLNormal8.6-10.3[facility] Physician GroupComment on above:Performed By: #### BMP, CBC ####[address] [address] USAChloride [Moles/Vol]111 mmol/LHigh 98-107The [facility] Physician GroupComment on above:Performed By: #### BMP, CBC ####[address] [address] USACO2 [Moles/Vol]21.9 mmol/QNitzwn63.0-31.0[facility] Physician GroupComment on above:Performed By: #### BMP, CBC ####[place] [id number] USACreatinine [Mass/Vol]2.21 mg/dLHigh0.60-1.20[facility] Physician GroupComment on above:Performed By: #### BMP, CBC ####[place] [id number] [place] Creatinine Clr Calc Lokenmhd23.99NormalThBoise Veterans Affairs Medical Center Physician GroupComment on above:Result Comment: PERFORMED BY: [facility] [address] [place] [id number] PATHOLOGIST SENIOR HR MANAGER CARLOS A CARD M.D.Performed By: #### BMP, CBC ####[place] [id number] USAEstimated GFR21.719 mL/Min NormalThe [facility] Memorial Hospital Physician GroupComment on above:Performed By: #### BMP, CBC ####[place] [id number] USAGlucose [Mass/Vol]131 mg/mUMmlc21-831Xbt [facility] Physician GroupComment on above: Result Comment: Random Glucose Reference Range is dependent on time and content of last meal. Glucose of more than 200 mg/dL in a nonstressed, ambulatory subject supports the diagnosis of Diabetes Mellitus. ADA recommended reference rangePerformed By: #### BMP, CBC ####[place] [id number] USAPotassium [Moles/Vol] 4.6 mmol/LNormal3.5-5.1[facility] Physician GroupComment on above:Performed By: #### BMP, CBC ####[place] [id number] USASodium [Moles/Vol]139 mmol/CEqxoxu118-476Owy [facility] Physician GroupComment on above:Performed By: #### BMP, CBC ####[place] [id number] USAUrea nitrogen [Mass/Vol]24 mg/dL Normal7-25The [facility] Physician GroupComment on above:Performed By: #### BMP, CBC ####[address] [address] [place] Basophils Auto (Bld) [#/Vol]Ordered By: Alivia Arana on 71-08-5313Pnqqemlfn (Bld) [#/Vol]Automated basophil count0.0-0.2FWVUMedicine [facility] Hospital Basophils/100 WBC Auto (Bld)Ordered By: Alivia Arana on 98-22-2753Xbqimajgs/100 WBC (Bld)Automated basophil %.[facility] HospitalComplete Blood Count Auto Diffon 24-66-2742Cblsqjtgf (Bld) [#/Vol]0.1 10*3/uLNormal0.0-0.2[facility] Physician GroupComment on above:Result Comment: PERFORMED BY: [facility] [address] [facility] [place] [address] PATHOLOGIST SENIOR HR MANAGER CARLOS A CARD M.D.Performed By: #### BMP, CBC ####[address] [address] USABasophils/100 WBC (Bld)1.0 % Normal.[facility] Physician GroupComment on above:Performed By: #### BMP, CBC ####[address] [address] [place] Eosinophils (Bld) [#/Vol]0.1 10*3/uLNormal0.0-0.45[facility] Comment on above:Performed By: #### BMP, CBC ####[place] [id number] USAEosinophils/100 WBC (Bld)0.7 %Normal. [facility] Physician GroupComment on above:Performed By: #### BMP, CBC ####[place] [id number] [place] Erythrocyte distribution width (RBC) [Ratio]13.3 %Bganwf48.9-15.3[facility] Physician GroupComment on above:Performed By: #### BMP, CBC ####[place] [address] USAHematocrit (Bld) [Volume fraction]37.0 %Ztyfpm54.0-46.4The [facility] Physician GroupComment on above:Performed By: #### BMP, CBC ####[place] [address] USAHemoglobin (Bld) [Mass/Vol]12.3 g/lKDvfkic46.8-15.4 [facility] Physician GroupComment on above:Performed By: #### BMP, CBC ####[place] [address] [place] Lymphocytes (Bld) [#/Vol]2.0 10*3/uLNormal1.00-4.8[facility] Comment on above:Performed By: #### BMP, CBC ####[place] [address] USALymphocytes/100 WBC (Bld)26.9 %Normal. [facility] Physician GroupComment on above:Performed By: #### BMP, CBC ####[place] [address] USAMCH (RBC) [Entitic mass]31.7 tmWjxiwy83.7-34.3The [facility] Physician GroupComment on above:Performed By: #### BMP, CBC ####[place] [address] USAMCV (RBC) [Entitic vol]95.2 lYQasixd70-683Ugb [facility] Physician GroupComment on above:Performed By: #### BMP, CBC ####[place] [address] USAMean Corpuscular HGB Conc33.3 g/fGWbpoxj99.0-35.0The [facility] Physician GroupComment on above:Performed By: #### BMP, CBC ####[place] [address] USAMonocytes (Bld) [#/Vol]0.5 10*3/uLNormal 0.0-0.8The [facility] Physician GroupComment on above:Performed By: #### BMP, CBC ####[place] [address] [place] Monocytes/100 WBC (Bld)7.2 %Normal.[facility] Physician GroupComment on above:Performed By: #### BMP, CBC ####[place] [address] USANeutrophils (Bld) [#/Vol]4.7 10*3/uLNormal1.8-7.7The [facility] Physician GroupComment on above:Performed By: #### BMP, CBC ####[place] [address] [place] Neutrophils/100 WBC (Bld)64.2 %Normal.[facility] Physician GroupComment on above:Performed By: #### BMP, CBC ####[place] [address] USANRBC%0.1 /100{WBC}Normal0-0.5The [facility] Physician GroupComment on above:Performed By: #### BMP, CBC ####[place] [address] USAPlatelet mean volume (Bld) [Entitic vol]9.4 fLNormal6.3-10.7The [facility] Physician GroupComment on above: Performed By: #### BMP, CBC ####[place] [address] USAPlatelets (Bld) [#/Vol]217 10*3/jXIctytf514-926Ibs [facility] Physician GroupComment on above:Performed By: #### BMP, CBC ####[place] [address] USARBC (Bld) [#/Vol]3.89 10*6/uLNormal3.60-5.00[facility] Physician GroupComment on above:Performed By: #### BMP, CBC ####[place] [address] USAWBC (Bld) [#/Vol]7.4 10*3/uLNormal3.8-11.6The [facility] Physician GroupComment on above:Performed By: #### BMP, CBC ####[facility] [address] [place] [address] [place] Eosinophils Auto (Bld) [#/Vol]Ordered By: Alivia Arana on 81-07-9574Vumcprnwzah (Bld) [#/Vol]Automated eosinophil count0.0-0.45[facility] Eosinophils/100 WBC Auto (Bld)Ordered By: Alivia Arana on 12-20-2024 Eosinophils/100 WBC (Bld)Automated eosinophil %.[facility] HospitalErythrocyte distribution width Auto (RBC) [Ratio]Ordered By: Alivia Arana on 80-88-0120Avmmeglltwk distribution width (RBC) [Ratio]Erythrocyte distribution width [Ratio] by Automated count11.9-15.3FWVUMedicine Harrison Community HospitalGlucose Poct Glucometerson 23-11-4248Srcfqie8Lqp8: Cleaned MeterNoNovant Health Presbyterian Medical Center Physician [place] HospitalComment on above:Result Comment: PERFORMED BY: [facility] [address] [place] [address] PATHOLOGIST SENIOR HR MANAGER CARLOS A CARD M.D.Performed By: #### GLULS ####Point of Care testing, Glucose [Mass/Vol]141 mg/dLEd [facility] Physician [facility] HospitalComment on above: Result Comment: Random Glucose Reference Range is dependent on time and content of last meal. Glucose of more than 200 mg/dL in a nonstressed, ambulatory subject supports the diagnosis of Diabetes Mellitus.Performed By: #### GLULS ####Point of Care testing,Glucose [Mass/Vol]156 mg/dLEd [facility] Physician [facility] HospitalComment on above:Result Comment: Random Glucose Reference Range is dependent on time and content of last meal. Glucose of more than 200 mg/dL in a nonstressed, ambulatory subject supports the diagnosis of Diabetes Mellitus. PERFORMED BY: [facility] [address] [place] [id number] PATHOLOGIST SENIOR HR MANAGER CARLOS A ACRD M.D.Performed By: #### GLULS ####Point of Care testing, Glucose [Mass/Vol]158 mg/dLNoNovant Health Presbyterian Medical Center Physician GroupComment on above: Result Comment: Random Glucose Reference Range is dependent on time and content of last meal. Glucose of more than 200 mg/dL in a nonstressed, ambulatory subject supports the diagnosis of Diabetes Mellitus. PERFORMED BY: [address] [place] [address] PATHOLOGIST SENIOR HR MANAGER CARLOS A CARD M.D.Performed By: #### GLULS ####Point of Care testing, Glucose [Mass/Vol]133 mg/dLNoNovant Health Presbyterian Medical Center Physician GroupComment on above: Result Comment: Random Glucose Reference Range is dependent on time and content of last meal. Glucose of more than 200 mg/dL in a nonstressed, ambulatory subject supports the diagnosis of Diabetes Mellitus. PERFORMED BY: [facility] [address] [place] [address] PATHOLOGIST SENIOR HR MANAGER CARLOS A CARD M.D.Performed By: #### GLULS ####Point of Care testing, Hematocrit Auto (Bld) [Volume fraction]Ordered By: Alivia Arana on 12-20-2024 Hematocrit (Bld) [Volume fraction]Hematocrit [Volume Fraction] of Blood by Automated count34.0-46.4FWVUMedicine Harrison Community HospitalHemoglobin [Mass/volume] in BloodOrdered By: Alivia Arana on 99-96-1936Pwcbkqmgpy (Bld) [Mass/Vol]Hemoglobin [Mass/volume] in Blood11.8-15.4FWVUMedicine Harrison Community HospitalLeukocytes [#/volume] corrected for nucleated erythrocytes in Blood by Automated counOrdered By: Alivia Arana on 90-32-8063WFW corrected for nucl RBC Auto (Bld) [#/Vol]Leukocytes [#/volume] corrected for nucleated erythrocytes in Blood by Automated coun3.8-11.6FWVUMedicine Harrison Community HospitalLymphocytes Auto (Bld) [#/Vol]Ordered By: Alivia Arana on 20-27-7353Tfebetjktrc (Bld) [#/Vol] Lymphocytes [#/volume] in Blood by Automated count1.00-4.8[facility] HospitalLymphocytes/100 WBC Auto (Bld)Ordered By: Alivia Arana on 32-38-6049Mllofswhahc/100 WBC (Bld)Lymphocytes/100 leukocytes in Blood by Automated count.[facility] HospitalMCH Auto (RBC) [Entitic mass] Ordered By: Alivia Arana on 75-61-3616ZTV (RBC) [Entitic mass]MCH [Entitic mass] by Automated count24.7-34.3FWVUMedicine Harrison Community HospitalMCHC Auto (RBC) [Mass/Vol]Ordered By: Alivia Arana on 64-79-8856PYTR (RBC) [Mass/Vol]MCHC [Mass/volume] by Automated count32.0-35.0[facility] HospitalMCV Auto (RBC) [Entitic vol]Ordered By: Alivia Arana on 32-25-5512NSF (RBC) [Entitic vol]MCV [Entitic volume] by Automated kqjru27-414XkcgizmbmMercy Health Fairfield HospitalMonocytes Auto (Bld) [#/Vol]Ordered By: Alivia Arana on 33-05-5274Pwuhemzhx (Bld) [#/Vol]Automated blood monocyte count0.0-0.8[facility] HospitalMonocytes/100 WBC Auto (Bld)Ordered By: Alivia Arana on 12-20-2024 Monocytes/100 WBC (Bld)Automated monocyte %.[facility] Neutrophils Auto (Bld) [#/Vol]Ordered By: Alivia Arana on 65-99-3831Hadwhrsrpde (Bld) [#/Vol]Neutrophils [#/volume] in Blood by Automated count1.8-7.7FWVUMedicine Harrison Community HospitalNeutrophils/100 WBC Auto (Bld)Ordered By: Alivia Arana on 84-07-4622Akgqwzdaggu/100 WBC (Bld)Automated neutrophil %.[facility] HospitalNucleated erythrocytes [Presence] in Blood by Automated count Ordered By: Alivia Araan on 15-78-9037Xsrvfbcna RBC Auto Ql (Bld)Nucleated erythrocytes [Presence] in Blood by Automated count0-0.5FWVUMedicine Harrison Community HospitalPlatelet mean volume Auto (Bld) [Entitic vol]Ordered By: Alivia Arana on 68-86-7878Rvvkupfj mean volume (Bld) [Entitic vol]Platelet mean volume [Entitic volume] in Blood by Automated count6.3-10.7FWVUMedicine Harrison Community HospitalPlatelets Auto (Bld) [#/Vol]Ordered By: Alivia Arana on 02-96-7018Uxirknioq (Bld) [#/Vol]Platelets [#/volume] in Blood by Automated tfiaz249-779BdlmapjvdMercy Health Fairfield HospitalRBC Auto (Bld) [#/Vol]Ordered By: Alivia Arana on 08-62-4788MWF (Bld) [#/Vol]Erythrocytes [#/volume] in Blood by Automated count 3.60-5.00[facility] HospitalWBC Auto (Bld) [#/Vol]Ordered By: Alivia Arana on 64-07-0613ROI (Bld) [#/Vol]Leukocytes [#/volume] in Blood by Automated count3.8-11.6FWVUMedicine Harrison Community HospitalAlanine aminotransferase [Enzymatic activity/volume] in Serum or PlasmaOrdered By: Louis Mcadams on 64-15-6868LIO [Catalytic activity/Vol]Alanine aminotransferase [Enzymatic activity/volume] in Serum or Plasma7-52[facility] HospitalAlbumin [Mass/volume] in Serum or Plasma by Bromocresol green (BCG) dye binding metho Ordered By: Louis Mcadams on 49-08-8975Swgeksx BCG dye [Mass/Vol]Albumin [Mass/volume] in Serum or Plasma by Bromocresol green (BCG) dye binding metho 3.5-5.7FWVUMedicine Harrison Community HospitalAlkaline phosphatase [Enzymatic activity/volume] in Serum or PlasmaOrdered By: Louis Mcadams on 88-33-8143ZIB [Catalytic activity/Vol]Alkaline phosphatase [Enzymatic activity/volume] in Serum or Iczmhe99-815LthdtmyzuMercy Health Fairfield HospitalAspartate aminotransferase [Enzymatic activity/volume] in Serum or PlasmaOrdered By: Louis Mcadams on 41-62-1659DFF [Catalytic activity/Vol]Aspartate aminotransferase [Enzymatic activity/volume] in Serum or VbcdjiOcq21-46NeoqeyvplMercy Health Fairfield HospitalB- Type Natriuretic Peptideon 14-06-1160Tpbuhunsayl peptide B (Bld) [Mass/Vol]376.0 pg/mLHigh5-100The [facility] Physician GroupComment on above:Result Comment: PERFORMED BY: [facility] [address] [id number] PATHOLOGIST SENIOR HR MANAGER CARLOS A CARD M.D.Performed By: #### BNP, CMP, CK, LIPASE, PT, HS TROP, CBC ####[facility] [id number] [place] [id number] [facility] Basophils Auto (Bld) [#/Vol]Ordered By: Louis Mcadams on 13-94-2719Psroqfvru (Bld) [#/Vol]Automated basophil count0.0-0.2FWVUMedicine Harrison Community Hospital Basophils/100 WBC Auto (Bld)Ordered By: Louis Mcadams on 63-84-4524Uktqykrwz/100 WBC (Bld)Automated basophil %.[facility] HospitalBilirubin.total [Mass/volume] in Serum or PlasmaOrdered By: Louis Mcadams on 69-63-1320Eoouhxagf [Mass/Vol]Bilirubin.total [Mass/volume] in Serum or Plasma0.3-1.0[facility] HospitalCOVID Cepheid NegativeOrdered By: Louis Mcadams on 29-53-3233QJPO-CoV-2 (COVID-19) Ab IA QlCOVID CepheidNegativeMercy Health Fairfield HospitalComment on above:This is a duplicate Cepheid Xpert Xpress CoV- 2/Flu/RSV Plus RNA by RT-PCR result to be used for statistical tracking purpose only.SARS-CoV-2 (COVID-19) RNA RADHA+probe Ql (Unsp spec)COVID CepheidNegative [facility] HospitalCOVID-19 / Flu A/B / RSV PCRon 12-19-2024 SARS-CoV-2 (COVID-19) RNA RADHA+probe Ql (Unsp spec)COVID-19 Cepheid Result Negative for SARS-CoV-2 RNA by RT-PCR Flu A Cepheid Result Negative for Flu A RNA by RT-PCR Flu B Cepheid Result Negative for Flu B RNA by RT-PCR RSV Cepheid Result Negative for RSV RNA by RT-PCR COVID19 Blank Space Reference: Negative COVID19 Blank Space Cepheid Disclaimer The Cepheid Xpert Xpress CoV-2/Flu/RSV [...] or Cepheid Disclaimer revoked sooner. PERFORMED BY: [facility] [address] [place] [address] PATHOLOGIST SENIOR HR MANAGER CARLOS A CARD M.D.Ed [facility] Physician GroupComment on above: Performed By: #### LACTIC #### [facility] [address] [place] [address] USACalcium [Mass/volume] in Serum or PlasmaOrdered By: Louis Mcadams on 54-04-3840Vhctcez [Mass/Vol]Calcium [Mass/volume] in Serum or Plasma Low8.6-10.3FWVUMedicine Harrison Community HospitalCarbon dioxide, total [Moles/volume] in Serum or PlasmaOrdered By: Louis Mcadams on 22-39-0830OI6 [Moles/Vol]Carbon dioxide, total [Moles/volume] in Serum or Qivakr20.0-31.0[facility] HospitalCepheid COVID PCR Negativeon 84-00-6752MDZG-CoV-2 (COVID-19) RNA RADHA+probe Ql (Unsp spec)NegativeNormalNegativeThe [facility] Physician Group Comment on above:Result Comment: This is a duplicate CepBabel Streetid Xpert Xpress CoV- 2/Flu/RSV Plus RNA by RT-PCR result to be used for statistical tracking purpose only. PERFORMED BY: [place] [address] PATHOLOGIST SENIOR HR MANAGER CARLOS A CADR M.D.Performed By: #### LACTIC #### [place] [address] USAChloride [Moles/volume] in Serum or PlasmaOrdered By: Louis Mcadams on 65-27-4710Urhzbpet [Moles/Vol]Chloride [Moles/volume] in Serum or IdexhcGgrm70-410ZwfnnsjczMercy Health Fairfield HospitalComplete Blood Count Auto Diff on 49-62-2592Eaftnjdhp (Bld) [#/Vol]0.1 10*3/uLNormal0.0-0.2The [facility] Physician GroupComment on above:Result Comment: PERFORMED BY: [place] [address] PATHOLOGIST SENIOR HR MANAGER CARLOS A CARD M.D.Performed By: #### BNP, CMP, CK, LIPASE, PT, HS TROP, CBC ####[place] [address] [place] Basophils/100 WBC (Bld)1.3 %Normal.The [facility] Physician GroupComment on above:Performed By: #### BNP, CMP, CK, LIPASE, PT, HS TROP, CBC ####[place] [address] USAEosinophils (Bld) [#/Vol]0.1 10*3/uLNormal0.0-0.45The [facility] Physician GroupComment on above: Performed By: #### BNP, CMP, CK, LIPASE, PT, HS TROP, CBC ####[place] [address] USAEosinophils/100 WBC (Bld)0.9 %Normal.The [facility] Physician GroupComment on above:Performed By: #### BNP, CMP, CK, LIPASE, PT, HS TROP, CBC ####[place] [address] USAErythrocyte distribution width (RBC) [Ratio]12.8 % Ydqirt04.9-15.3The [facility] Physician GroupComment on above:Performed By: #### BNP, CMP, CK, LIPASE, PT, HS TROP, CBC ####[place] [address] USAHematocrit (Bld) [Volume fraction]35.6 %Normal 34.0-46.4The [facility] Physician GroupComment on above:Performed By: #### BNP, CMP, CK, LIPASE, PT, HS TROP, CBC ####[place] [address] USAHemoglobin (Bld) [Mass/Vol]11.7 g/dLLow11.8-15.4The [facility] Physician GroupComment on above:Performed By: #### BNP, CMP, CK, LIPASE, PT, HS TROP, CBC ####[place] [address] USALymphocytes (Bld) [#/Vol]2.3 10*3/uLNormal1.00-4.8 [facility] Physician GroupComment on above:Performed By: #### BNP, CMP, CK, LIPASE, PT, HS TROP, CBC ####[place] [address] USALymphocytes/100 WBC (Bld)27.1 %Normal.The [facility] Physician GroupComment on above:Performed By: #### BNP, CMP, CK, LIPASE, PT, HS TROP, CBC ####[address] (RBC) [Entitic mass]31.2 zySycrom03.7-34.3[facility] Comment on above:Performed By: #### BNP, CMP, CK, LIPASE, PT, HS TROP, CBC ####[address] (RBC) [Entitic vol]94.6 sJWhtdki13-937Rfq [facility] Physician GroupComment on above:Performed By: #### BNP, CMP, CK, LIPASE, PT, HS TROP, CBC ####[place] [address] USAMean Corpuscular HGB Conc33.0 g/cEHqdbkm53.0-35.0The [facility] Physician GroupComment on above: Performed By: #### BNP, CMP, CK, LIPASE, PT, HS TROP, CBC ####[place] [address] USAMonocytes (Bld) [#/Vol]0.6 10*3/uLNormal0.0-0.8The [facility] Physician GroupComment on above:Performed By: #### BNP, CMP, CK, LIPASE, PT, HS TROP, CBC ####[place] [address] USAMonocytes/100 WBC (Bld)21.81 %High 0.00-20.00The [facility] Physician GroupComment on above:Result Comment: For adults in ED, MDW > 20.0 may be associated with a higher risk of sepsis during the first 12 hrs of hospital admissionPerformed By: #### BNP, CMP, CK, LIPASE, PT, HS TROP, CBC ####[place] [address] USAMonocytes/100 WBC (Bld)7.0 %Normal.The [facility] Physician GroupComment on above:Performed By: #### BNP, CMP, CK, LIPASE, PT, HS TROP, CBC ####[place] [address] USANeutrophils (Bld) [#/Vol]5.3 10*3/uLNormal1.8-7.7The [facility] Physician GroupComment on above:Performed By: #### BNP, CMP, CK, LIPASE, PT, HS TROP, CBC ####[place] [id number] USANeutrophils/100 WBC (Bld)63.7 %Normal.The [facility] Physician GroupComment on above:Performed By: #### BNP, CMP, CK, LIPASE, PT, HS TROP, CBC ####[place] [address] USANRBC%0.2 /100{WBC}Normal0-0.5The [facility] Physician GroupComment on above: Performed By: #### BNP, CMP, CK, LIPASE, PT, HS TROP, CBC ####[place] [address] USAPlatelet mean volume (Bld) [Entitic vol]9.3 fLNormal6.3-10.7The [facility] Physician GroupComment on above: Performed By: #### BNP, CMP, CK, LIPASE, PT, HS TROP, CBC ####[place] [address] USAPlatelets (Bld) [#/Vol]210 10*3/gRAsryjy570-843Sri [facility] Physician GroupComment on above:Performed By: #### BNP, CMP, CK, LIPASE, PT, HS TROP, CBC ####[place] [id number] USARBC (Bld) [#/Vol]3.76 10*6/uLNormal 3.60-5.00The [facility] Physician GroupComment on above:Performed By: #### BNP, CMP, CK, LIPASE, PT, HS TROP, CBC ####[place] [address] USAWBC (Bld) [#/Vol]8.4 10*3/uLNormal3.8-11.6The [facility] Physician GroupComment on above:Performed By: #### BNP, CMP, CK, LIPASE, PT, HS TROP, CBC ####[place] [address] USAComprehensive Metabolic Panelon 84-60-8170Xlafddi [Mass/Vol]3.7 g/dLNormal3.5-5.7The [facility] Physician GroupComment on above: Performed By: #### BNP, CMP, CK, LIPASE, PT, HS TROP, CBC ####[place] [address] USAAlbumin/Globulin [Mass ratio] 1.3 {ratio}NormalThe [facility] Hospital Physician GroupComment on above:Performed By: #### BNP, CMP, CK, LIPASE, PT, HS TROP, CBC ####[place] [address] USAALP [Catalytic activity/Vol]88 U/L Ledwty97-398Rmd [facility] Physician GroupComment on above:Performed By: #### BNP, CMP, CK, LIPASE, PT, HS TROP, CBC ####[place] [address] USAALT [Catalytic activity/Vol]7 U/LNormal7-52The [facility] Physician GroupComment on above:Performed By: #### BNP, CMP, CK, LIPASE, PT, HS TROP, CBC ####[place] [address] USAAnion gap [Moles/Vol]10.1 mmol/LNormal6.0-15.0The [facility] Physician GroupComment on above:Performed By: #### BNP, CMP, CK, LIPASE, PT, HS TROP, CBC ####[place] [address] USAAST [Catalytic activity/Vol]11 U/NXvm91-45Qbg [facility] Physician GroupComment on above:Performed By: #### BNP, CMP, CK, LIPASE, PT, HS TROP, CBC ####[place] [address] USABilirubin [Mass/Vol]0.5 mg/dLNormal0.3-1.0The [facility] Physician GroupComment on above:Performed By: #### BNP, CMP, CK, LIPASE, PT, HS TROP, CBC ####[place] [address] USACalcium [Mass/Vol]8.4 mg/dLLow8.6-10.3The [facility] Physician GroupComment on above:Performed By: #### BNP, CMP, CK, LIPASE, PT, HS TROP, CBC ####[place] [address] USAChloride [Moles/Vol]111 mmol/EDlcs72-743Hpf [facility] Physician GroupComment on above:Performed By: #### BNP, CMP, CK, LIPASE, PT, HS TROP, CBC ####[place] [address] USACO2 [Moles/Vol]22.1 mmol/SVlsyus55.0-31.0The [facility] Physician GroupComment on above:Performed By: #### BNP, CMP, CK, LIPASE, PT, HS TROP, CBC ####[place] [address] USACreatinine [Mass/Vol]2.38 mg/dLHigh 0.60-1.20The [facility] Physician GroupComment on above:Performed By: #### BNP, CMP, CK, LIPASE, PT, HS TROP, CBC ####[place] [address] USACreatinine Clr Calc Mmcdozcy94.39NoNovant Health Presbyterian Medical Center Physician GroupComment on above:Performed By: #### BNP, CMP, CK, LIPASE, PT, HS TROP, CBC ####[place] [address] USAEstimated GFR19.870 mL/MinNormAdventHealth Central Pasco ER Physician GroupComment on above:Performed By: #### BNP, CMP, CK, LIPASE, PT, HS TROP, CBC ####[address] [place] [address] USAGlobulin (S) [Mass/Vol]2.8 g/dLNormalThe [facility] Physician GroupComment on above:Performed By: #### BNP, CMP, CK, LIPASE, PT, HS TROP, CBC ####[address] [address] USAGlucose [Mass/Vol]144 mg/jMWxvb47-015 The [facility] Physician GroupComment on above:Result Comment: Random Glucose Reference Range is dependent on time and content of last meal. Glucose of more than 200 mg/dL in a nonstressed, ambulatory subject supports the diagnosis of Diabetes Mellitus. ADA recommended reference rangePerformed By: #### BNP, CMP, CK, LIPASE, PT, HS TROP, CBC ####[place] [address] USAPotassium [Moles/Vol]4.2 mmol/LNormal3.5-5.1[facility] Comment on above:Performed By: #### BNP, CMP, CK, LIPASE, PT, HS TROP, CBC ####[address] [address] USAProtein [Mass/Vol]6.5 g/dLNormal6.4-8.9The [facility] Physician GroupComment on above: Performed By: #### BNP, CMP, CK, LIPASE, PT, HS TROP, CBC ####[place] [id number] USASodium [Moles/Vol]139 mmol/L Bdlljj341-801Iqa [facility] Physician GroupComment on above:Performed By: #### BNP, CMP, CK, LIPASE, PT, HS TROP, CBC ####[place] [id number] USAUrea nitrogen [Mass/Vol]26 mg/dLHigh7-25The [facility] Physician GroupComment on above:Performed By: #### BNP, CMP, CK, LIPASE, PT, HS TROP, CBC ####[place] [id number] USACreatine Kinaseon 14-68-1550KM [Catalytic activity/Vol]32 U/ZLrsmea23-115Mov [place] Physician GroupComment on above: Performed By: #### BNP, CMP, CK, LIPASE, PT, HS TROP, CBC ####[facility] [address] [place] [address] USACreatine kinase [Enzymatic activity/volume] in Serum or PlasmaOrdered By: Louis Mcadams on 43-63-3441VA [Catalytic activity/Vol]Creatine kinase [Enzymatic activity/volume] in Serum or Efkxzh59-637FygezfzuvMercy Health Fairfield HospitalCreatinine [Mass/volume] in Serum or PlasmaOrdered By: Louis Mcadams on 45-61-9862Taodhpgkdf [Mass/Vol]Creatinine [Mass/volume] in Serum or PlasmaHigh0.60-1.20[facility] ECG 12 lead ECGon 96-98-7269LQP 12 lead ECGOHIOHEALTH O'BL[facility] [address] [place] [address] [place] [address] Electrocardiograph Report Signed Patient: Hailee Trivedi MR#: [id number] 306 : 1940 Acct:[id number] Age/Sex: 84 / F ADM Date: 12/19/24 Loc: Room: [address] [place] [address] Type: ADM IN Attending Dr: Jonathan Valenzuela [...] was found Confirmed by LOUIS MCADAMS DO ([id number]) on 12/20/2024 4:24:52 PM Referred By: Electronically Signed By: LOUIS MCADAMS DO Transcribed By: MUS Signed By Louis Mcadams DO 12/20 1624NoNovant Health Presbyterian Medical Center Physician GroupEosinophils Auto (Bld) [#/Vol]Ordered By: Louis Mcadams on 44-33-4844Xfadlqnzaus (Bld) [#/Vol]Automated eosinophil count0.0-0.45[facility] HospitalEosinophils/100 WBC Auto (Bld) Ordered By: Louis Mcadams on 68-55-3188Wdhiwncgvbm/100 WBC (Bld)Automated eosinophil %.[facility] HospitalErythrocyte distribution width Auto (RBC) [Ratio]Ordered By: Louis Mcadams on 81-86-1886Ysxoaanrmfr distribution width (RBC) [Ratio]Erythrocyte distribution width [Ratio] by Automated count11.9-15.3FWVUMedicine Harrison Community HospitalGlobulin Calc (S) [Mass/Vol]Ordered By: Louis Mcadams on 85-34-3785Vwaovpmb (S) [Mass/Vol]Serum globulin measurement by calculation (mass/volume)[facility] HospitalGlucose Poct Glucometerson 62-51-2985Qhiqems [Mass/Vol]143 mg/dLNoNovant Health Presbyterian Medical Center Physician GroupComment on above:Result Comment: Random Glucose Reference Range is dependent on time and content of last meal. Glucose of more than 200 mg/dL in a nonstressed, ambulatory subject supports the diagnosis of Diabetes Mellitus. PERFORMED BY: [address] [place] [address] PATHOLOGIST SENIOR HR MANAGER CARLOS A CARD M.D.Performed By: #### GLULS ####Point of Care testing, Glucose [Mass/volume] in Serum or PlasmaOrdered By: Louis Mcadams on 12-19-2024 Glucose [Mass/Vol]Glucose [Mass/volume] in Serum or PdrozrDwfd07-346LfygsmzwlMercy Health Fairfield HospitalHematocrit Auto (Bld) [Volume fraction]Ordered By: Louis Mcadams on 12-76-9030Gixztklugu (Bld) [Volume fraction]Hematocrit [Volume Fraction] of Blood by Automated count34.0-46.4FWVUMedicine Harrison Community Hospital Hemoglobin [Mass/volume] in BloodOrdered By: Louis Mcadams on 12-19-2024 Hemoglobin (Bld) [Mass/Vol]Hemoglobin [Mass/volume] in WijvdOcm24.8-15.4 [facility] HospitalINR in Platelet poor plasma by Coagulation assayOrdered By: Louis Mcadams on 38-82-7707RAW Coag (PPP) [Relative time]INR in Platelet poor plasma by Coagulation assayMercy Health Fairfield Hospital Comment on above:INR Therapeutic Range A) Pre- and Peroperative OAT started two weeks before surgery. NOT HIP SURGERY: 1.5 - 2.5 HIP SURGERY: 2 - 3B) Primary and secondary prevention of venous THROMBOSIS: 2 - 3C) Active venous thrombosis, pulmonary embolismand prevention of recurrent venous thrombosis: 2 - 3D) Preve ntion of arterial thromboembolismincluding patients with mechanical heart valves: 3 - 4.5Leukocytes [#/volume] corrected for nucleated erythrocytes in Blood by Automated counOrdered By: Louis Mcadams on 92-53-7751LCD corrected for nucl RBC Auto (Bld) [#/Vol]Leukocytes [#/volume] corrected for nucleated erythrocytes in Blood by Automated coun3.8-11.6FWVUMedicine Harrison Community Hospital Lipaseon 66-18-1952Putace [Catalytic activity/Vol]35.0 U/BJuizee93.0-82.0The [facility] Physician GroupComment on above:Result Comment: PERFORMED BY: [facility] [address] [place] [address] PATHOLOGIST SENIOR HR MANAGER CARLOS A CARD M.D.Performed By: #### BNP, CMP, CK, LIPASE, PT, HS TROP, CBC ####[facility] [id number] Lipase [Enzymatic activity/volume] in Serum or PlasmaOrdered By: Louis Mcadams on 36-82-3881Extfwi [Catalytic activity/Vol]Lipase [Enzymatic activity/volume] in Serum or Eabaun36.0-82.0[facility] HospitalLymphocytes Auto (Bld) [#/Vol]Ordered By: Louis Mcadams on 02-22-8215Dlufallmwrz (Bld) [#/Vol] Lymphocytes [#/volume] in Blood by Automated count1.00-4.8[facility] HospitalLymphocytes/100 WBC Auto (Bld)Ordered By: Louis Macdams on 94-65-3819Lqgdzwmxeqe/100 WBC (Bld)Lymphocytes/100 leukocytes in Blood by Automated count.[facility] HospitalH Auto (RBC) [Entitic mass] Ordered By: Louis Mcadams on 13-89-6479IHX (RBC) [Entitic mass]MCH [Entitic mass] by Automated count24.7-34.3FWVUMedicine Harrison Community HospitalMCHC Auto (RBC) [Mass/Vol]Ordered By: Louis Mcadams on 79-56-6731EXSQ (RBC) [Mass/Vol]MCHC [Mass/volume] by Automated count32.0-35.0[facility] HospitalV Auto (RBC) [Entitic vol]Ordered By: Louis Mcadams on 20-71-2769EZY (RBC) [Entitic vol]MCV [Entitic volume] by Automated -606EwdbeccglMercy Health Fairfield HospitalMonocyte distribution width [Entitic volume] in Blood by Automated Ordered By: Louis Mcadams on 85-27-6113Llivlzyv distribution width Auto (Bld) [Entitic vol]Monocyte distribution width [Entitic volume] in Blood by Automated High0.00-20.00Mer[facility] Fairfield HospitalComment on above:For adults in ED, MDW > 20.0 may be associated with a higher risk of sepsis during the first 12 hrs of hospital admissionMonocytes Auto (Bld) [#/Vol]Ordered By: Louis Mcadams on 69-72-5778Hpzjfhvep (Bld) [#/Vol]Automated blood monocyte count 0.0-0.8[facility] HospitalMonocytes/100 WBC Auto (Bld)Ordered By: Louis Mcadams on 19-02-7960Aowkjwywa/100 WBC (Bld)Automated monocyte %.[facility] HospitalNatriuretic peptide B [Mass/Vol]Ordered By: Louis Mcadams on 32-34-6425Oflnoeobetq peptide B (Bld) [Mass/Vol]BNP ser/plasHigh 5-100Mer[facility] HospitalNeutrophils Auto (Bld) [#/Vol]Ordered By: Louis Mcadams on 88-40-1821Dshcefdgyub (Bld) [#/Vol]Neutrophils [#/volume] in Blood by Automated count1.8-7.7FWVUMedicine Harrison Community HospitalNeutrophils/100 WBC Auto (Bld)Ordered By: Louis Mcadams on 88-19-8520Prhtvtiyfsk/100 WBC (Bld) Automated neutrophil %.[facility] HospitalNo Panel Information Ordered By: Louis Mcadams on 87-55-328014.870 mL/MinMercy Health Fairfield Hospital32.39[facility] HospitalNucleated erythrocytes [Presence] in Blood by Automated countOrdered By: Louis Mcadams on 74-48-1253Lkhwphmgm RBC Auto Ql (Bld)Nucleated erythrocytes [Presence] in Blood by Automated count0-0.5 [facility] HospitalPlatelet mean volume Auto (Bld) [Entitic vol] Ordered By: Louis Mcadams on 84-37-3462Eadxaqmp mean volume (Bld) [Entitic vol] Platelet mean volume [Entitic volume] in Blood by Automated count6.3-10.7 [facility] HospitalPlatelets Auto (Bld) [#/Vol]Ordered By: Louis Mcadams on 17-66-7013Yidxdhwsj (Bld) [#/Vol]Platelets [#/volume] in Blood by Automated nkwdy823-842TkohsjdllMercy Health Fairfield HospitalPotassium [Moles/volume] in Serum or PlasmaOrdered By: Louis Mcadams on 41-73-0027Vphptpxjs [Moles/Vol] Potassium [Moles/volume] in Serum or Plasma3.5-5.1FWVUMedicine Harrison Community HospitalProtein [Mass/volume] in Serum or PlasmaOrdered By: Louis Mcadams on 44-60-8908Ennovpy [Mass/Vol]Protein [Mass/volume] in Serum or Plasma6.4-8.9 [facility] HospitalProthrombin Time INRon 22-01-5243HHX Coag (PPP) [Relative time]1.3 {INR}NormalThe Person Memorial Hospital Physician GroupComment on above: Result Comment: INR Therapeutic Range [...] heart valves: 3 - 4.5 PERFORMED BY: [place] [address] [place] [address] PATHOLOGIST SENIOR HR MANAGER CARLOS A CARD M.D.Performed By: #### BNP, CMP, CK, LIPASE, PT, HS TROP, CBC ####[facility] [address] [place] [address] USAPT Coag (PPP) [Time]14.5 sHigh9.0-12.9The [facility] Hospital Physician GroupComment on above:Result Comment: A hematocrit value greater than 55% may lead to inaccurate results in coagulation testing. Patients having hematocrit values >55% require a special collection tube for coagulation studies. Please contact the laboratory at [phone] for redraw instructions.Performed By: #### BNP, CMP, CK, LIPASE, PT, HS TROP, CBC ####[facility] [address] [place] [address] [facility] Prothrombin time (PT)Ordered By: Louis Mcadams on 94-19-9813XZ Coag (PPP) [Time] Prothrombin time (PT)High9.0-12.9Mer[facility] Fairfield HospitalComment on above:A hematocrit value greater than 55% may lead to inaccurate results in coagulation testing. Patientshaving hematocrit values >55% require a special collection tube for coagulation studies. Please contact the laboratory at [phone] for redraw instructions.RBC Auto (Bld) [#/Vol]Ordered By: Louis Mcadams on 17-76-4831SPG (Bld) [#/Vol]Erythrocytes [#/volume] in Blood by Automated count3.60-5.00[facility] HospitalRespiratory specimen influenza A virus, influenza B virus, respiratory syncytical virOrdered By: Louis Mcadams on 21-08-7981LNUF-CoV-2 (COVID-19) RNA RADHA+probe Ql (Unsp spec) Respiratory specimen influenza A virus, influenza B virus, respiratory syncytical virEast Liverpool City Hospitalerum or plasma albumin/globulin mass ratioOrdered By: Louis Mcadams on 68-27-7387Kzpwxfk/Globulin [Mass ratio] Serum or plasma albumin/globulin mass ratioMercy Health Fairfield Hospital Serum or plasma anion gap determinationOrdered By: Louis Mcadams on 12-19-2024 Anion gap [Moles/Vol]Serum or plasma anion gap determination6.0-15.0East Liverpool City Hospitalodium [Moles/volume] in Serum or PlasmaOrdered By: Louis Mcadams on 70-77-2248Gntilg [Moles/Vol]Sodium [Moles/volume] in Serum or Plasma 136-145Mer[facility]field HospitalTroponin I High Sensitivityon 12-19-2024 Troponin I High Smzfztknqqy6Mptxzb5-68Zlq [facility] Hospital Physician GroupComment on above:Result Comment: The Troponin units of report have been changed to meet the Chest Pain Accreditation requirement, element EC5.M1l2. Troponin units are changed from pg/ml to ng/L. Also, the decimal is removed and results are in whole numbers. PERFORMED BY: [facility] [address] [place] [address] PATHOLOGIST SENIOR HR MANAGER CARLOS A CARD M.D.Performed By: #### BNP, CMP, CK, LIPASE, PT, HS TROP, CBC ####[facility] Troponin I.cardiac [Mass/volume] in Serum or Plasma by Detection limit <= 0.01 ng/Ordered By: Louis Mcadams on 02-28-6562Gvshwpsp I.cardiac DL <= 0.01 ng/mL [Mass/Vol]Troponin I.cardiac [Mass/volume] in Serum or Plasma by Detection limit <= 0.01 ng/0-15Mer[facility]field HospitalComment on above:The Troponin units of report have been changed to meet the Chest Pain Accreditation requirement, element EC5.M1l2. Troponin units are changed from pg/ml to ng/L. Also, the decimal is removed and results are in whole numbers.Urea nitrogen [Mass/volume] in Serum or PlasmaOrdered By: Louis Mcadams on 91-20-7180Elct nitrogen [Mass/Vol]Urea nitrogen [Mass/volume] in Serum or PlasmaHigh7-25 [facility] HospitalWBC Auto (Bld) [#/Vol]Ordered By: Louis Mcadams on 90-91-1488SWY (Bld) [#/Vol]Leukocytes [#/volume] in Blood by Automated count 3.8-11.6FWVUMedicine Harrison Community HospitalX-ray reportOrdered By: Pj Palm on 20-46-8502Jfmvb reportMercy Health Fairfield HospitalXR chest 2V*on 00-10-8269DD chest 2V*[facility] [place] [address] [place] [address] XRay Report Signed Patient: Hailee Trivedi MR#: [id number] 306 : 1940 Acct:[id number] Age/Sex: 84 / F ADM Date: 12/19/24 Loc: ER Room: Type: [facility] ER Attending Dr: Copies to: [...] Palm Jr., D.O.12/19/2024 2:57 PM Dictation Location: [place] [address] Transcribed By: [facility] 12/19/24 1457 Dictated By: Pj Palm Jr, DO 12/19/24 1456 Signed By: 12/19/24 1457[facility] Physician GroupAlbumin [Mass/volume] in Serum or Plasma by Bromocresol green (BCG) dye binding methoOrdered By: Akin Suarez on 82-19-2928Wysfogc BCG dye [Mass/Vol]Albumin [Mass/volume] in Serum or Plasma by Bromocresol green (BCG) dye binding metho3.5-5.7FWVUMedicine Harrison Community HospitalAppearance of UrineOrdered By: Akin Suarez on 18-14-7951Vjnqxrugfu (U) Urine appearanceCleRegency Hospital ToledoAppearance (U)ClearNormal ClearMercy Health Fairfield HospitalComment on above:Performed By: #### PROCRERAT, ADDONUAPLUS ####[facility] [address] [place] [address] USABacteria [Presence] in Urine by AutomatedOrdered By: Akin Suarez on 07-60-4874Apifqmoa Auto Ql (U)Bacteria [Presence] in Urine by AutomatedNone [facility] Beach[facility] Medical CenterBacteria Auto Ql (U)Rare [HPF]None [facility] Medical CenterBilirubin Test strip Ql (U) Ordered By: Akin Suarez on 43-53-0975Tnsyzgyjf Ql (U)Bilirubin.total [Presence] in Urine by Test stripNegativeMercy Health Fairfield HospitalBilirubin Ql (U) NegativeNegativeMercy Health Fairfield HospitalCalcium [Mass/volume] in Serum or PlasmaOrdered By: Akin Suarez on 48-01-3552Vkzhjww [Mass/Vol]Calcium [Mass/volume] in Serum or Plasma8.6-10.3FWVUMedicine Harrison Community HospitalCalcium oxalate crystals [Presence] in Urine by Computer assisted methodOrdered By: Akin Suarez on 63-29-8120Yrqbbnp oxalate crystals Computer assisted Ql (U) Calcium oxalate crystals [Presence] in Urine by Computer assisted method [facility] HospitalCalcium oxalate crystals Computer assisted Ql (U)Rare [HPF][facility] HospitalCarbon dioxide, total [Moles/volume] in Serum or PlasmaOrdered By: Akin Suarez on 49-12-7840KU0 [Moles/Vol]Carbon dioxide, total [Moles/volume] in Serum or Ddwszo32.0-31.0 [facility] HospitalChloride [Moles/volume] in Serum or Plasma Ordered By: Akin Suarez on 53-27-4990Iwucglcz [Moles/Vol]Chloride [Moles/volume] in Serum or NdwttkUsfw29-172BlvcctxbdMercy Health Fairfield HospitalColor Auto (U) Ordered By: Akin Suarez on 12-40-5437Juldn (U)Color of Urine by AutoYellow [facility] HospitalColor of Urine by AutoOrdered By: Akin Suarez on 00-79-3788Kqzhw (U)Light-yellowNormalYMemorial Health System [facility] Comment on above:Performed By: #### FAISAL CHEEMA ####[place] [address] [place] [address] USACreatinine [Mass/volume] in Serum or PlasmaOrdered By: Akin Suarez on 81-43-4209Xyrwmxzdkv [Mass/Vol]Creatinine [Mass/volume] in Serum or PlasmaHigh0.60-1.20[facility] HospitalCreatinine [Mass/volume] in UrineOrdered By: Akin Suarez on 06-49-4523Cgakbkikvb (U) [Mass/Vol]Creatinine [Mass/volume] in UrineMercy Health Fairfield HospitalComment on above:No reference range established Creatinine (U) [Mass/Vol]128.00 mg/dLMercy Health Fairfield HospitalComment on above:No reference range establishedCrystals [Presence] in Urine by Automated Ordered By: Akin Suarez on 20-52-6508Mjwmoxbw Auto Ql (U)Crystals [Presence] in Urine by AutomatedMercy Health Fairfield HospitalCrystals Auto Ql (U)1+ [HPF] [facility] HospitalDipstick and Microscopicon 12-12-2024 Bacteria,UrineRareNormalNone SeenThe Person Memorial Hospital Physician GroupComment on above: Performed By: #### LENNIERERAT ADDONUAPLUS ####[address] [address] USABilirubin,UrineNegativeNormalNegativeThe Person Memorial Hospital Physician GroupComment on above:Performed By: #### PROCRERAT ADDONUAPLUS ####[address] [address] USACalcium Oxalate Crystals,UrineRareNormalThe [facility] Physician Group Comment on above:Performed By: #### PROCRERAT, ADDONUAPLUS ####[address] [address] USAGlucose Ql (U)Normal NormalNormalThe Person Memorial Hospital Physician GroupComment on above:Performed By: #### PROCRERAT, ADDONUAPLUS ####[address] [address] USAHyaline Casts,UrineNoneNormal0-8The [facility] Hospital Physician GroupComment on above:Performed By: #### PROCRERAT, ADDONUAPLUS ####[address] [address] [place] Mucus,UrineRareNormalThe Person Memorial Hospital Physician GroupComment on above:Result Comment: PERFORMED BY: [facility] [address] [place] [address] PATHOLOGIST SENIOR HR MANAGER CARLOS A CARD M.D.Performed By: #### PROCRERAT, ADDONUAPLUS ####[address] [address] [place] Nitrite,UrineNegativeNormalNegativeThe Person Memorial Hospital Physician GroupComment on above:Performed By: #### PROCRERAT, ADDONUAPLUS ####[address] [address] USAOccult Blood,UrineNegativeNormal NegativeThe Person Memorial Hospital Physician GroupComment on above:Performed By: #### PROCRERAT, ADDONUAPLUS ####[address] [address] USAOthe Crystals,Urine1+NormalThe Person Memorial Hospital Physician GroupComment on above:Performed By: #### PROCRERAT, ADDONUAPLUS ####[address] [address] USARBC,Urine1 [HPF] Normal0-4The [facility] Hospital Physician GroupComment on above:Performed By: #### PROCRERAT, ADDONUAPLUS ####[address] [address] USASpecificy [place],Urine1.799Rjswna7.001-1.030The [facility] Hospital Physician GroupComment on above:Performed By: #### PROCRERAT, ADDONUAPLUS ####[address] [address] USASquamous Epithelial Cell,Urine3 [HPF]High0-2The [facility] Hospital Physician GroupComment on above:Performed By: #### PROCRERAT, ADDONUAPLUS ####[address] [address] USAUrobilinogen,Urine NormalNormalNormalThe [facility] Physician [facility] HospitalComment on above:Performed By: #### PROCRERAAntwan, ADDONUAPLUS ####[facility] [address] [place] [address] [facility] CENTERWBC CLUMP, UrineOccasionalHighNone SeenThe [facility] Hospital Physician [facility] HospitalComment on above:Performed By: #### PROCRERAT, ADDONUAPLUS ####[facility] [address] [place] [address] [place] WBC,Urine3 [HPF]Normal0-4[facility] Physician [facility] HospitalComment on above:Performed By: #### PROCRERAT, ADDONUAPLUS ####[facility] [address] Wade StreetEpithelial cells.squamous [#/area] in Urine sediment by Automated countOrdered By: Akin Suarez on 23-44-9833Wckzjymyho cells.squamous Auto (Urine sed) [#/Area]Epithelial cells.squamous [#/area] in Urine sediment by Automated countHigh02FWVUMedicine [facility] Hospital Epithelial cells.squamous Auto (Urine sed) [#/Area]3-4 [HPF]High02FWVUMedicine Harrison Community HospitalErythrocyte distribution width Auto (RBC) [Ratio]Ordered By: Akin Suarez on 62-13-4253Itkjejkcojs distribution width (RBC) [Ratio] Erythrocyte distribution width [Ratio] by Automated count11.9-15.3FWVUMedicine Harrison Community HospitalErythrocytes [#/area] in Urine sediment by Automated countOrdered By: Akin Suarez on 75-88-7686THT Auto (Urine sed) [#/Area] Erythrocytes [#/area] in Urine sediment by Automated count0-4FWVUMedicine Harrison Community HospitalRBC Auto (Urine sed) [#/Area]1-2 [HPF]0-4FWVUMedicine Harrison Community HospitalGlucose [Mass/volume] in Serum or PlasmaOrdered By: Akin Suarez on 01-28-5864Rnndjgv [Mass/Vol]Glucose [Mass/volume] in Serum or UwksiyIxtz19-317 [facility] HospitalComment on above:ADA recommended reference rangeRandom Glucose Reference Range is dependent on time and content of last meal. Glucose of more than 200 mg/dL in a nonstressed, ambulatory subject supports the diagnosisof Diabetes Mellitus.Glucose [Mass/volume] in Urine by Test stripOrdered By: Akin Suarez on 67-84-3983Lxeajqa Test strip (U) [Mass/Vol] Glucose [Mass/volume] in Urine by Test stripNoACMC Healthcare SystemGlucose Test strip (U) [Mass/Vol]Normal mg/dLNoACMC Healthcare SystemHematocrit Auto (Bld) [Volume fraction]Ordered By: Akin Suarez on 71-27-2205Igmmvlzody (Bld) [Volume fraction]Hematocrit [Volume Fraction] of Blood by Automated count34.0-46.4FWVUMedicine Harrison Community HospitalHemoglobin Test strip Ql (U)Ordered By: Akin Suarez on 76-23-5993Wqkbawatro Ql (U) Hemoglobin [Presence] in Urine by Test stripNegativeMercy Health Fairfield HospitalHemoglobin Ql (U)NegativeNegNorwalk Memorial Hospital Hemoglobin [Mass/volume] in BloodOrdered By: Akin Suarez on 26-08-3507Uigvicldzb (Bld) [Mass/Vol]Hemoglobin [Mass/volume] in Blood11.8-15.4FWVUMedicine Harrison Community HospitalHemogram CBC Without Diffon 65-43-5948Mmkypawqkya distribution width (RBC) [Ratio]13.4 %Fuymvf25.9-15.3The [facility] Hospital Physician GroupComment on above:Performed By: #### MG, CBCNO, WDWA22SC, URIC, RENAL, PTH ####[facility] [address] [place] [address] USAHematocrit (Bld) [Volume fraction]36.8 %Rjisrl66.0-46.4The [facility] Hospital Physician GroupComment on above:Performed By: #### MG, CBCNO, BMDB77DC, URIC, RENAL, PTH ####[facility] [place] [address] USAHemoglobin (Bld) [Mass/Vol]12.1 g/hSWyvpkm80.8-15.4The [facility] Hospital Physician GroupComment on above: Performed By: #### MG, CBCNO, SAFA53UV, URIC, RENAL, PTH ####[address] [place] [address] [facility] STIGLERH (RBC) [Entitic mass]31.2 ewHpclfe74.7-34.3The [facility] Hospital Physician GroupComment on above:Performed By: #### MG, CBCNO, QUJX60WV, URIC, RENAL, PTH ####[address] [place] [address] [facility] – STIGLERV (RBC) [Entitic vol]95.0 fLNormal 80-100The [facility] Hospital Physician GroupComment on above:Performed By: #### MG, CBCNO, TGWC59HF, URIC, RENAL, PTH ####[address] [address] USAMean Corpuscular HGB Conc32.8 g/uDYaxtfk52.0-35.0The [facility] Hospital Physician GroupComment on above:Performed By: #### MG, CBCNO, RTWM85TE, URIC, RENAL, PTH ####[address] [address] USAPlatelet mean volume (Bld) [Entitic vol]10.3 fL Normal6.3-10.7The [facility] Hospital Physician GroupComment on above:Result Comment: PERFORMED BY: [facility] [address] [place] [address] PATHOLOGIST SENIOR HR MANAGER CARLOS A CARD M.D.Performed By: #### MG, CBCNO, [id number], URIC, RENAL, PTH ####[address] [address] [place] Platelets (Bld) [#/Vol]213 10*3/lMWmdbjf309-130Ufk [facility]ician Group Comment on above:Performed By: #### MG, CBCNO, [id number], URIC, RENAL, PTH ####[address] [address] USARBC (Bld) [#/Vol]3.87 10*6/uLNormal3.60-5.00The [facility] Hospital Physician GroupComment on above:Performed By: #### MG, CBCNO, LLMD47RL, URIC, RENAL, PTH ####[place] [id number] USAWBC (Bld) [#/Vol]6.4 10*3/uLNormal3.8-11.6The [facility] Hospital Physician GroupComment on above:Performed By: #### MG, CBCNO, WESJ07RQ, URIC, RENAL, PTH ####[place] [address] [place] [address] USAHyaline casts [#/area] in Urine sediment by Automated countOrdered By: Akin Hernandezdir on 87-10-3712Ftvwpjv casts Auto (Urine sed) [#/Area]Hyaline casts [#/area] in Urine sediment by Automated count0-8[facility] HospitalHyaline casts Auto (Urine sed) [#/Area] None [LPF]0-8[facility] HospitalKetones Test strip Ql (U)Ordered By: Akin Lopez on 41-98-1273Mffdtvr Ql (U)Ketones [Presence] in Urine by Test stripNegNorwalk Memorial HospitalKetones [Presence] in Urine by Test stripOrdered By: Akin Lopez on 43-60-4844Cjalucy Ql (U)NegativeNormal NegativeMercy Health Fairfield HospitalComment on above:Performed By: #### PROCRERAT, ADDONUAPLUS ####[place] [address] USALeukocyte clumps [Presence] in Urine by Automated Ordered By: Akin Lopez on 55-96-1831Qdpxdyvwz clumps Auto Ql (U)Leukocyte clumps [Presence] in Urine by AutomatedHighUniversity Hospitals Portage Medical CenterLeukocyte clumps Auto Ql (U)Occasional [LPF]HighNone [facility] Medical CenterLeukocyte esterase [Presence] in Urine by Test strip Ordered By: Akin Lopez on 67-12-7877Ohdpytozt esterase Test strip Ql (U) Leukocyte esterase [Presence] in Urine by Test stripHighNegNorwalk Memorial HospitalLeukocyte esterase Test strip Ql (U)1+HighNegative [facility] HospitalComment on above:Performed By: #### FAISAL CHEEMA ####[facility] [place] [address] USALeukocytes [#/area] in Urine sediment by Automated countOrdered By: Akin Suarez on 81-20-8907ORA Auto (Urine sed) [#/Area]Leukocytes [#/area] in Urine sediment by Automated count0-4FWVUMedicine Harrison Community HospitalWBC Auto (Urine sed) [#/Area]3-4 [HPF]0-4FWVUMedicine Harrison Community HospitalLeukocytes [#/volume] corrected for nucleated erythrocytes in Blood by Automated coun Ordered By: Akin Suarez on 40-91-7512WMZ corrected for nucl RBC Auto (Bld) [#/Vol]Leukocytes [#/volume] corrected for nucleated erythrocytes in Blood by Automated coun3.8-11.6FProMedica Defiance Regional HospitalH Auto (RBC) [Entitic mass]Ordered By: Akin Suarez on 12-62-3399VEN (RBC) [Entitic mass]MCH [Entitic mass] by Automated count24.7-34.3FProMedica Defiance Regional HospitalHC Auto (RBC) [Mass/Vol]Ordered By: Akin Hernandezdir on 40-61-9216BGWZ (RBC) [Mass/Vol]MCHC [Mass/volume] by Automated count32.0-35.0Mer[facility] HospitalMCV Auto (RBC) [Entitic vol]Ordered By: Akin Suarez on 06-56-7729ZQZ (RBC) [Entitic vol]MCV [Entitic volume] by Automated jdaum59-516OhvzoicjeMercy Health Fairfield HospitalMagnesium [Mass/volume] in Serum or PlasmaOrdered By: Akin Suarez on 15-46-2286Zzjcdhktw [Mass/Vol]Magnesium [Mass/volume] in Serum or Plasma1.9-2.7 [facility] HospitalMagnesium [Mass/Vol]2.0 mg/dLNormal1.9-2.7 [facility] HospitalComment on above:Performed By: #### MG, CBCNO, HDPL52QG, URIC, RENAL, PTH ####[facility] [address] [place] [address] USAMucus [Presence] in Urine by AutomatedOrdered By: Akin Suarez on 17-24-3143Cgviu Auto Ql (U)Mucus [Presence] in Urine by Automated [facility] HospitalMucus Auto Ql (U)Rare [LPF][facility] HospitalNitrite Test strip Ql (U)Ordered By: Akin Suarez on 12-12-2024 Nitrite Ql (U)Nitrite [Presence] in Urine by Test stripNegativeMercy Health Fairfield HospitalNitrite Ql (U)NegativeNegativeMercy Health Fairfield HospitalNo Panel InformationOrdered By: Akin Suarez on 06-13-2443Dsqlghwxr GFR (CKD-EPI)20.812 mL/MinMercy Health Fairfield HospitalPharmacy Creatinine Clearance (Chem21.90[facility]20.812 mL/MinMercy Health Fairfield Hospital21.90[facility] HospitalParathyrin.intact [Mass/volume] in Serum or PlasmaOrdered By: Akin Suarez on 12-12-2024 Parathyrin.intact [Mass/Vol]Parathyrin.intact [Mass/volume] in Serum or Plasma [address]Parathyrin.intact [Mass/Vol]155.9 pg/iWZbvm33-31Sjfgjqhut25 [address]u StreetParathyroid Hormone [place] 1942Xvxpjfmmhjo Hormone Vlvfyx440.9 pg/lRLbmo23-24Siu [facility] Physician GroupComment on above:Result Comment: PERFORMED BY: [facility] [address] [place] [address] PATHOLOGIST SENIOR HR MANAGER CARLOS A CARD M.D.Performed By: #### MG, CBCNO, [id number], URIC, RENAL, PTH ####[facility] [address] [place] [address] [facility] Phosphate [Mass/volume] in Serum or PlasmaOrdered By: Akin Suarez on 12-12-2024 Phosphate [Mass/Vol]Phosphate [Mass/volume] in Serum or Plasma2.5-4.5FWVUMedicine Harrison Community HospitalPhosphate [Mass/Vol]3.6 mg/dLNormal2.5-4.5FWVUMedicine Harrison Community HospitalComment on above:Performed By: #### MG, CBCNO, [id number], URIC, RENAL, PTH ####[facility] [place] [address] USAPlatelet mean volume Auto (Bld) [Entitic vol]Ordered By: Akin Suarez on 67-32-3882Clayojev mean volume (Bld) [Entitic vol]Platelet mean volume [Entitic volume] in Blood by Automated count6.3-10.7FWVUMedicine Harrison Community HospitalPlatelets Auto (Bld) [#/Vol]Ordered By: Akin Lopez on 67-80-3352Nikewpook (Bld) [#/Vol]Platelets [#/volume] in Blood by Automated feazh704-878OuafupuzaMercy Health Fairfield HospitalPotassium [Moles/volume] in Serum or PlasmaOrdered By: Akin Suarez on 93-87-5227Vujzafpiq [Moles/Vol]Potassium [Moles/volume] in Serum or Plasma3.5-5.1FWVUMedicine Harrison Community HospitalProtein Creat Ratio Ur Randomon 42-59-4433Vxmgxnwvip, Urine (Random)128.00 mg/dLNormalThe Person Memorial Hospital Physician GroupComment on above:Result Comment: No reference range establishedPerformed By: #### EVGENY CHEEMAONUAPLUS ####[place] [address] [place] [address] USAUrine Protein/Creatinine Ptxmk511 mg/g{Cre}High0-200 The [facility] Physician GroupComment on above:Result Comment: PERFORMED BY: [facility] [address] [place] [id number] PATHOLOGIST SENIOR HR MANAGER CARLOS A CARD M.D.Performed By: #### ANETTE ADDONUAPLUS ####[address] [address] USAProtein Test strip (U) [Mass/Vol]Ordered By: Akin Suarez on 09-97-4842Rzalmdd (U) [Mass/Vol]Protein [Mass/volume] in Urine by Test stripHighNegativeFirelands Regional Medical CenterProtein [Mass/volume] in UrineOrdered By: Akin Suarez on 37-22-0634Tjykgul (U) [Mass/Vol]Protein [Mass/volume] in UrineMary Babb Randolph Cancer Center09[facility] HospitalProtein (U) [Mass/Vol]42 mg/dLWhittier Rehabilitation Hospital9[facility] HospitalComment on above:Performed By: #### BLADIMIR CHEEMAPLUS ####[address] [address] USAProtein [Mass/volume] in Urine by Test stripOrdered By: Akin Suarez on 12-12-2024 Protein (U) [Mass/Vol]30 mg/dLTrinity Health System [facility] Comment on above:Performed By: #### BLADIMIR CHEEMAPLUS ####[address] [address] USARBC Auto (Bld) [#/Vol]Ordered By: Akin Suarez on 48-92-9920VWX (Bld) [#/Vol]Erythrocytes [#/volume] in Blood by Automated count3.60-5.00[facility] Renal Function Panelon 72-67-4618Kisqgqy [Mass/Vol]3.8 g/dLNormal3.5-5.7[facility] Physician GroupComment on above:Performed By: #### MG, CBCNO, [id number], URIC, RENAL, PTH ####[address] [address] USAAnion gap [Moles/Vol]15.4 mmol/LHigh6.0-15.0[facility] Physician GroupComment on above:Performed By: #### MG, CBCNO, [id number], URIC, RENAL, PTH ####[address] [address] USACalcium [Mass/Vol]8.6 mg/dLNormal8.6-10.3The [facility] Physician GroupComment on above:Performed By: #### MG, CBCNO, [id number], URIC, RENAL, PTH ####[place] [address] [place] [id number] USAChloride [Moles/Vol]108 mmol/MKaqq19-160Icv [facility] Physician GroupComment on above:Performed By: #### MG, CBCNO, [id number], URIC, RENAL, PTH ####[address] [place] [address] USACO2 [Moles/Vol]22.2 mmol/UVfxwor87.0-31.0[facility] Physician GroupComment on above:Performed By: #### MG, CBCNO, [id number], URIC, RENAL, PTH ####[place] [id number] USACreatinine [Mass/Vol]2.29 mg/dLHigh0.60-1.20The [facility] Physician GroupComment on above:Performed By: #### MG, CBCNO, QEOX97ZW, URIC, RENAL, PTH ####[place] [id number] USACreatinine Clr Calc Rjepzuac68.90NoNovant Health Presbyterian [facility] Physician [facility] HospitalComment on above:Performed By: #### MG, CBCNO, [id number], URIC, RENAL, PTH ####[place] [id number] USAEstimated GFR20.812 mL/MinNoNovant Health Presbyterian Medical Center Physician [facility] HospitalComment on above:Performed By: #### MG, CBCNO, [id number], URIC, RENAL, PTH ####[place] [phone] USAGlucose [Mass/Vol]117 mg/sNDyky11-956Hfo [facility] Physician [facility] HospitalComment on above:Result Comment: Random Glucose Reference Range is dependent on time and content of last meal. Glucose of more than 200 mg/dL in a nonstressed, ambulatory subject supports the diagnosis of Diabetes Mellitus. ADA recommended reference rangePerformed By: #### MG, CBCNO, YWSV26CG, URIC, RENAL, PTH ####[place] [id number] USAPotassium [Moles/Vol]4.6 mmol/LNormal3.5-5.1[facility] Comment on above:Performed By: #### MG, CBCNO, MOWS23MS, URIC, RENAL, PTH ####[facility] [place] [address] USASodium [Moles/Vol]141 mmol/GAjedfv452-418Mky [facility] Physician GroupComment on above: Performed By: #### MG, CBCNO, [id number], URIC, RENAL, PTH ####[facility] [place] [phone] USAUrea nitrogen [Mass/Vol]23 mg/dLNormal7-25The [facility] Physician GroupComment on above:Performed By: #### MG, CBCNO, [id number], URIC, RENAL, PTH ####[place] [place] [address] USASerum or plasma anion gap determinationOrdered By: Akin Suarez on 51-23-4861Uxsjm gap [Moles/Vol]Serum or plasma anion gap determinationHigh6.0-15.0[facility] City Hospitalodium [Moles/volume] in Serum or PlasmaOrdered By: Akin Suarez on 14-81-5107Inwdwu [Moles/Vol]Sodium [Moles/volume] in Serum or Mdyqfq519-721AsoocghbjMercy Health Fairfield Hospital Specific gravity Test strip (U) [Rel density]Ordered By: Akin Suarez on 80-00-6537Ezpnruql gravity (U) [Rel density]Specific gravity of Urine by Test strip1.001-1.030[facility] Hospitalpecific gravity (U) [Rel density]1.0161.001-1.030[facility] HospitalUrate [Mass/volume] in Serum or PlasmaOrdered By: Akin Suarez on 82-96-4286Dwlfp [Mass/Vol]Urate [Mass/volume] in Serum or PlasmaHigh2.3-6.6FWVUMedicine [facility] Community Hospital Urate [Mass/Vol]6.9 mg/dLHigh2.3-6.6FWVUMedicine Harrison Community HospitalComment on above:Performed By: #### MG, CBCNO, PRTW95LC, URIC, RENAL, PTH ####[facility] [address] [place] [address] USAUrea nitrogen [Mass/volume] in Serum or PlasmaOrdered By: Akin Suarez on 92-11-1794Gtxi nitrogen [Mass/Vol]Urea nitrogen [Mass/volume] in Serum or Plasma7[facility] HospitalUrine protein/creatinine ratioOrdered By: Akin Suarez on 50-75-7337Fyaitmh/Creatinine (U) [Ratio]Urine protein/creatinine ratioHigh0-200 [facility] HospitalProtein/Creatinine (U) [Ratio]328 mg/g{Cre}High 0-200Mer[facility] HospitalUrobilinogen Test strip (U) [Mass/Vol] Ordered By: Akin Suarez on 99-52-3190Whyxctoctikl (U) [Mass/Vol]Urobilinogen [Mass/volume] in Urine by Test stripNormLake County Memorial Hospital [facility] West Urobilinogen (U) [Mass/Vol]Normal mg/dLNoACMC Healthcare System Vitamin D 25 Hydroxy Totalon 38-12-6715Cjfopbz D 25 Hydroxy Total41.8 ng/mL Xufjqk75-569Rdw [facility] Physician GroupComment on above:Result Comment: VITAMIN D STATUS 25(OH)VITAMIN D RANGE (ng/mL) Deficient <20 Insufficient 20 to <30 Sufficient 30 to 100 Reference: Reji MF,Caro NC, Marguerite MCMAHON, et al. Evaluation,treatment, and prevention of vitamin D deficiency; an Endocrine Society clinical practice guideline. JCEM. 2010; 96(7):1911-30. PERFORMED BY: [facility] [address] [place] [address] PATHOLOGIST SENIOR HR MANAGER CARLOS A CARD M.D.Performed By: #### MG, CBCNO, [id number], URIC, RENAL, PTH ####[facility] [address] [place] [address] [facility] Vitamin D+Metabolites [Mass/volume] in Serum or PlasmaOrdered By: Akin Suarez on 55-37-6243Ejzkjya D+Metabolites [Mass/Vol]Vitamin D+Metabolites [Mass/volume] in Serum or Ygfucc75-128OmdpnmxzmMercy Health Fairfield HospitalComment on above: VITAMIN D STATUS 25(OH)VITAMIN D RANGE (ng/mL) Deficient <20 Insufficient 20 to <68Oibjvprxst24 to 100Reference: Caro Vallejo, Marguerite MCMAHON, et al. Evaluation,treatment, and prevention of vitamin D deficiency; an Endocrine Society clinical practice guideline. [facility]. 2010; 96(7):1911-.Vitamin D+Metabolites [Mass/Vol]41.8 ng/nC65-552SwectusfmMercy Health Fairfield HospitalComment on above:VITAMIN D STATUS 25(OH)VITAMIN D RANGE (ng/mL) Deficient <20 Insufficient 20 to <84Itxjpgnphw84 to 100Reference: Caro Vallejo, Marguerite MCMAHON, et al. Evaluation,treatment, and prevention of vitamin D deficiency; an Endocrine Society clinical practice guideline. EM. 2010; 96 (7):1911-30.pH Test strip (U)Ordered By: Akin Suarez on 48-18-9352hC (U)pH of Urine by Test strip5.0-9.0[facility] HospitalpH of Urine by Test stripOrdered By: Akin Suarez on 43-68-3674zH (U)6.5 [pH]Normal5.0-9.0[facility] HospitalComment on above:Performed By: #### PROCRERAT, ADDONUAPLUS ####[facility] [address] [place] [address] USABasophils Auto (Bld) [#/Vol]on 49-73-3680Madkwrjph (Bld) [#/Vol] Automated basophil count0.0-0.1FWVUMedicine Harrison Community HospitalBasophils/100 WBC Auto (Bld)on 82-43-6265Boknwraaw/100 WBC (Bld)Automated basophil %0.2-2.0 [facility] HospitalEosinophils/100 WBC Auto (Bld)on 11-24-2024 Eosinophils/100 WBC (Bld)Automated eosinophil %0.9-7.0[facility] HospitalErythrocyte distribution width Auto (RBC) [Ratio]on 21-14-3426Qoqoxrbgcbh distribution width (RBC) [Ratio]Erythrocyte distribution width [Ratio] by Automated count11.0-15.0[facility] HospitalEstimated glomerular filtration rate (GFR) non- Americanon 80-38-5220KHP/1.73 sq M.predicted among non-blacks MDRD (S/P/Bld) [Vol rate/Area]Estimated glomerular filtration rate (GFR) non- AmericanLow>=60 mL/min/1.73m 2FWVUMedicine Harrison Community HospitalGlobulin Calc (S) [Mass/Vol]on 15-16-6871Udlifxxe (S) [Mass/Vol]Serum globulin measurement by calculation (mass/volume)[facility] HospitalHematocrit Auto (Bld) [Volume fraction]on 45-02-8923Hgyvqvmwxp (Bld) [Volume fraction]Hematocrit [Volume Fraction] of Blood by Automated countLow 36.0-48.0[facility] HospitalHemoglobin [Mass/volume] in Bloodon 08-80-8985Ksvicgrbxw (Bld) [Mass/Vol]Hemoglobin [Mass/volume] in BloodLow 12.0-16.0[facility] HospitalLaboratory - Chemistry and Chemistry - challengeon 76-38-3726Zuggfdn [Mass/Vol]3.0 g/dLLow3.4-5.0[facility] HospitalALP [Catalytic activity/Vol]101 U/T65-355JmgtrajvoMercy Health Fairfield HospitalALT [Catalytic activity/Vol]10 U/TNok98-92UbmpzhuwwMercy Health Fairfield HospitalAST [Catalytic activity/Vol]12 U/VBoz43-70SnbdevkuuMercy Health Fairfield HospitalBilirubin [Mass/Vol]0.5 mg/dL0.2-1.0[facility] HospitalCalcium [Mass/Vol]7.9 mg/dLLow8.5-10.1FWVUMedicine [facility] Hospital Chloride [Moles/Vol]107 mmol/Y69-591OwsporsakMercy Health Fairfield HospitalCO2 [Moles/Vol]24.7 mmol/L21.0-32.0[facility] HospitalCreatinine [Mass/Vol]2.77 mg/dLHigh0.55-1.02[facility] HospitalGFR/1.73 sq M.predicted MDRD (S/P/Bld) [Vol rate/Area]20 mL/min/{1.73_m2}Low>=60 mL/min/1.73m 2FWVUMedicine Harrison Community HospitalGlucose [Mass/Vol]137 mg/dLHigh 74-106[facility] HospitalPotassium [Moles/Vol]3.3 mmol/LLow3.5-5.1 [facility] HospitalProtein [Mass/Vol]6.1 g/dLLow6.4-8.2FSalem City Hospitalodium [Moles/Vol]141 mmol/U981-663HtqhnfvblMercy Health Fairfield HospitalUrea nitrogen [Mass/Vol]23.0 mg/dLHigh7.0-18.0[facility] HospitalUrea nitrogen/Creatinine [Mass ratio]8.3 mg/mgMercy Health Fairfield HospitalLaboratory - Hematology and Cell countson 72-99-7886Othhirvm granulocytes/100 WBC (Bld)0.3 %0.0-0.5FWVUMed[facility] Hospital Leukocytes [#/volume] corrected for nucleated erythrocytes in Blood by Automated counon 07-03-4254LJZ corrected for nucl RBC Auto (Bld) [#/Vol]Leukocytes [#/volume] corrected for nucleated erythrocytes in Blood by Automated coun 4.0-11.0[facility] HospitalLymphocytes Auto (Bld) [#/Vol]on 22-83-4617Lwksmnxrpjr (Bld) [#/Vol]Lymphocytes [#/volume] in Blood by Automated count1.2-3.8[facility] HospitalLymphocytes/100 WBC Auto (Bld)on 31-79-3473Gwmkgmbgfty/100 WBC (Bld)Lymphocytes/100 leukocytes in Blood by Automated tjbjeIhr98.5-60.0[facility] HospitalMCH Auto (RBC) [Entitic mass]on 52-46-6135RFO (RBC) [Entitic mass]MCH [Entitic mass] by Automated count26.7-34.0[facility] HospitalMCHC Auto (RBC) [Mass/Vol]on 15-30-5869QYPP (RBC) [Mass/Vol]MCHC [Mass/volume] by Automated count29.9-35.2FWVUMedicine Harrison Community HospitalMCV Auto (RBC) [Entitic vol]on 60-04-5936RTV (RBC) [Entitic vol]MCV [Entitic volume] by Automated count 81.0-99.0[facility] HospitalMonocytes Auto (Bld) [#/Vol]on 40-59-4342Szwksledr (Bld) [#/Vol]Automated blood monocyte count0.3-0.8[facility] HospitalMonocytes/100 WBC Auto (Bld)on 69-08-4182Xwectmuip/100 WBC (Bld)Automated monocyte %1.7-12.0[facility] Neutrophils Auto (Bld) [#/Vol]on 40-14-7816Auvgbpwiohq (Bld) [#/Vol]Neutrophils [#/volume] in Blood by Automated count1.4-6.5FWVUM[facility] Neutrophils/100 WBC Auto (Bld)on 53-12-5775Pkohhjjzqei/100 WBC (Bld)Automated neutrophil %43.0-75.0[facility] HospitalNo Panel Informationon 16-41-3787Qalvzxoepnb # (Auto)0.2 10 3/uL0.0-0.7FWVUMedicine Harrison Community HospitalImmature Granulocyte # (Auto)0.02 10 3/uL0.00-0.03[facility]101 U/T05-210NtuglodrqMercy Health Fairfield Hospital0.2 10 3/uL0.0-0.7 [facility]10 U/YXdq84-28SnfrbdnscMercy Health Fairfield Hospital 3.0 g/dLLow3.4-5.0[facility]12 U/YKoo08-74RwmhjrvydMercy Health Fairfield Hospital8.3FW[facility] Hospital23.0 mg/dLHigh 7.0-18.0[facility]0.02 10 3/uL0.00-0.03[facility]7.9 mg/dLLow8.5-10.1FWV[facility] Hospital0.3 %0.0-0.5 [facility]107 mmol/T40-358OrlndzhjtMercy Health Fairfield Hospital24.7 mmol/L21.0-32.0[facility]2.77 mg/dLHigh 0.55-1.02[facility]20Low>=60 mL/min/1.73m 2FW[facility] Hospital137 mg/pPTzbn74-421CocrsuryrMercy Health Fairfield Hospital3.3 mmol/LLow3.5-5.1FWV[facility] Hospital141 mmol/D481-457HdhfztfpjMercy Health Fairfield Hospital0.5 mg/dL0.2-1.0[facility]6.1 g/dL Low6.4-8.2FWVUMedicine Harrison Community HospitalPlatelet mean volume Auto (Bld) [Entitic vol]on 00-31-8919Osduggus mean volume (Bld) [Entitic vol]Platelet mean volume [Entitic volume] in Blood by Automated count9.5-13.5FWVUMedicine Harrison Community HospitalPlatelets Auto (Bld) [#/Vol]on 17-76-2577Tjtexvcio (Bld) [#/Vol] Platelets [#/volume] in Blood by Automated -492QgsduyhcxMercy Health Fairfield HospitalRBC Auto (Bld) [#/Vol]on 43-91-1918QAC (Bld) [#/Vol]Erythrocytes [#/volume] in Blood by Automated countLow4.20-5.40[facility] City Hospitalerum or plasma albumin/globulin mass ratioon 39-48-7516Yfrejkh/Globulin [Mass ratio]Serum or plasma albumin/globulin mass ratioEast Liverpool City Hospitalerum or plasma anion gap determinationon 72-31-9496Pthrm gap [Moles/Vol]Serum or plasma anion gap determinationMercy Health Fairfield HospitalBasophils Auto (Bld) [#/Vol]on 10-00-0712Fmygyfmga (Bld) [#/Vol]Automated basophil count0.0-0.1FWVUMedicine Harrison Community HospitalBasophils/100 WBC Auto (Bld)on 27-68-8006Pwvokigoa/100 WBC (Bld)Automated basophil %0.2-2.0[facility] HospitalEosinophils/100 WBC Auto (Bld)on 11-23-2024 Eosinophils/100 WBC (Bld)Automated eosinophil %0.9-7.0[facility] HospitalErythrocyte distribution width Auto (RBC) [Ratio]on 49-46-4651Nkburqbwdws distribution width (RBC) [Ratio]Erythrocyte distribution width [Ratio] by Automated count11.0-15.0[facility] HospitalEstimated glomerular filtration rate (GFR) non- Americanon 31-48-8604CKZ/1.73 sq M.predicted among non-blacks MDRD (S/P/Bld) [Vol rate/Area]Estimated glomerular filtration rate (GFR) non- AmericanLow>=60 mL/min/1.73m 2FWVUMedicine Harrison Community HospitalHematocrit Auto (Bld) [Volume fraction]on 37-91-6639Xvaieoajfk (Bld) [Volume fraction]Hematocrit [Volume Fraction] of Blood by Automated count 36.0-48.0[facility] HospitalHemoglobin [Mass/volume] in Bloodon 26-51-6570Fibtrngxab (Bld) [Mass/Vol]Hemoglobin [Mass/volume] in Blood12.0-16.0 [facility] HospitalLaboratory - Chemistry and Chemistry - challengeon 46-10-5893Nyjrvwi [Mass/Vol]8.5 mg/dL8.5-10.1FWVUMedicine Harrison Community HospitalChloride [Moles/Vol]102 mmol/P02-112RhwurcuaxMercy Health Fairfield HospitalCO2 [Moles/Vol]25.4 mmol/L21.0-32.0[facility] Creatinine [Mass/Vol]3.14 mg/dLHigh0.55-1.02[facility] GFR/1.73 sq M.predicted MDRD (S/P/Bld) [Vol rate/Area]17 mL/min/{1.73_m2}Low>=60 mL/min/1.[address]m [address] [place], [place] [address]Glucose [Mass/Vol]235 mg/dLHigh 74-106[facility] HospitalNatriuretic peptide B (Bld) [Mass/Vol] 2855.0 pg/mLCritically high<=1800.0[facility] HospitalComment on above:RESULTS CALLED TO TRUMAN SIMMONS RN AT 1146Potassium [Moles/Vol]3.6 mmol/L3.5-5.1FSalem City Hospitalodium [Moles/Vol]139 mmol/L 136-145[facility] HospitalUrea nitrogen [Mass/Vol]26.0 mg/dLHigh 7.0-18.0[facility] HospitalUrea nitrogen/Creatinine [Mass ratio] 8.3 mg/mgMercy Health Fairfield HospitalLaboratory - Hematology and Cell countson 01-70-2520Oyryoapo granulocytes/100 WBC (Bld)0.1 %0.0-0.5FWVUMedicine Harrison Community HospitalLeukocytes [#/volume] corrected for nucleated erythrocytes in Blood by Automated counon 93-20-6982RJU corrected for nucl RBC Auto (Bld) [#/Vol]Leukocytes [#/volume] corrected for nucleated erythrocytes in Blood by Automated coun4.0-11.0[facility] HospitalLymphocytes Auto (Bld) [#/Vol]on 81-82-1157Fkwyswnhmem (Bld) [#/Vol]Lymphocytes [#/volume] in Blood by Automated count1.2-3.8[facility] HospitalLymphocytes/100 WBC Auto (Bld)on 67-87-5615Voyjcwqkrts/100 WBC (Bld)Lymphocytes/100 leukocytes in Blood by Automated count20.5-60.0[facility] HospitalH Auto (RBC) [Entitic mass]on 80-36-6320LRG (RBC) [Entitic mass]MCH [Entitic mass] by Automated count26.7-34.0[facility] HospitalMCHC Auto (RBC) [Mass/Vol]on 50-44-6102KGPY (RBC) [Mass/Vol]MCHC [Mass/volume] by Automated count29.9-35.2FWVUMedicine Harrison Community HospitalMCV Auto (RBC) [Entitic vol]on 86-90-5270UZV (RBC) [Entitic vol]MCV [Entitic volume] by Automated count 81.0-99.0[facility] HospitalMonocytes Auto (Bld) [#/Vol]on 54-70-9497Mtjudhpcb (Bld) [#/Vol]Automated blood monocyte count0.3-0.8[facility] HospitalMonocytes/100 WBC Auto (Bld)on 53-67-9003Ovybrfkin/100 WBC (Bld)Automated monocyte %1.7-12.0[facility] Neutrophils Auto (Bld) [#/Vol]on 98-33-8674Kjhaxgbwzeo (Bld) [#/Vol]Neutrophils [#/volume] in Blood by Automated count1.4-6.5[facility] Neutrophils/100 WBC Auto (Bld)on 48-47-4772Vaddvadlvqb/100 WBC (Bld)Automated neutrophil %43.0-75.0[facility] HospitalNo Panel Informationon 42-48-3007Vqakktctsun # (Auto)0.1 10 3/uL0.0-0.7FWVUMedicine Harrison Community HospitalImmature Granulocyte # (Auto)0.01 10 3/uL0.00-0.03[facility]2855.0 pg/mLCritically high<=1800.0[facility]8.3FW[facility]0.1 10 3/uL0.0-0.7FW[facility]26.0 mg/dLHigh7.0-18.0[facility]8.5 mg/dL 8.5-10.1FW[facility]102 mmol/M33-165KkdqkaoaqMercy Health Fairfield Hospital25.4 mmol/L21.0-32.0[facility]0.01 10 3/uL 0.00-0.03[facility]3.14 mg/dLHigh0.55-1.02[facility]0.1 %0.0-0.5[facility]17Low>=60 mL/min/1.73m 2FW[facility] Hospital235 mg/sXFpsb19-258UlfnluotjMercy Health Fairfield Hospital3.6 mmol/L3.5-5.1FW[facility] Hospital139 mmol/F797-379CctcriknxMercy Health Fairfield HospitalPlatelet mean volume Auto (Bld) [Entitic vol]on 30-81-7117Zzmrlivu mean volume (Bld) [Entitic vol]Platelet mean volume [Entitic volume] in Blood by Automated count9.5-13.5FWVUMed[facility] Harrison Community HospitalPlatelets Auto (Bld) [#/Vol]on 64-07-9253Vgwbrengr (Bld) [#/Vol] Platelets [#/volume] in Blood by Automated fwouz790-634YsapiuzeaMercy Health Fairfield HospitalRBC Auto (Bld) [#/Vol]on 86-27-5163EDP (Bld) [#/Vol]Erythrocytes [#/volume] in Blood by Automated countLow4.20-5.40[facility] City Hospitalerum or plasma anion gap determinationon 31-29-2125Fpksz gap [Moles/Vol] Serum or plasma anion gap determinationMercy Health Fairfield Hospital Basophils Auto (Bld) [#/Vol]on 45-62-0524Stuzgpcru (Bld) [#/Vol]Automated basophil count0.0-0.1FWV[facility] Community HospitalBasophils/100 WBC Auto (Bld)on 45-05-9887Vnuublpho/100 WBC (Bld)Automated basophil %0.2-2.0[facility] HospitalEosinophils/100 WBC Auto (Bld)on 11-22-2024 Eosinophils/100 WBC (Bld)Automated eosinophil %0.9-7.0[facility] HospitalErythrocyte distribution width Auto (RBC) [Ratio]on 74-43-5231Gniovqrlmmq distribution width (RBC) [Ratio]Erythrocyte distribution width [Ratio] by Automated count11.0-15.0[facility] HospitalEstimated glomerular filtration rate (GFR) non- Americanon 86-92-6710VRZ/1.73 sq M.predicted among non-blacks MDRD (S/P/Bld) [Vol rate/Area]Estimated glomerular filtration rate (GFR) non- AmericanLow>=60 mL/min/1.73m 2FWVUMedicine Harrison Community HospitalGlobulin Calc (S) [Mass/Vol]on 67-84-9102Mvzvpgfu (S) [Mass/Vol]Serum globulin measurement by calculation (mass/volume)[facility] HospitalHematocrit Auto (Bld) [Volume fraction]on 86-43-2402Ljicavslyw (Bld) [Volume fraction]Hematocrit [Volume Fraction] of Blood by Automated count 36.0-48.0[facility] HospitalHemoglobin [Mass/volume] in Bloodon 91-15-6579Fslbpzvqec (Bld) [Mass/Vol]Hemoglobin [Mass/volume] in BloodLow 12.0-16.0[facility] HospitalLaboratory - Chemistry and Chemistry - challengeon 11-70-6203Nfilsvu [Mass/Vol]3.1 g/dLLow3.4-5.0[facility] HospitalALP [Catalytic activity/Vol]123 U/IRbee17-808AuqiluwhsMercy Health Fairfield HospitalALT [Catalytic activity/Vol]11 U/QYnq63-47IkxivwbwdMercy Health Fairfield HospitalAST [Catalytic activity/Vol]12 U/WCfo97-09XmfyumdfgMercy Health Fairfield HospitalBilirubin [Mass/Vol]0.8 mg/dL0.2-1.0[facility] HospitalCalcium [Mass/Vol]8.6 mg/dL8.5-10.1[facility] Chloride [Moles/Vol]108 mmol/MCaqv25-593CfhnjpodxMercy Health Fairfield HospitalCO2 [Moles/Vol]24.5 mmol/L21.0-32.0[facility] HospitalCreatinine [Mass/Vol]2.36 mg/dLHigh0.55-1.02[facility] HospitalGFR/1.73 sq M.predicted MDRD (S/P/Bld) [Vol rate/Area]24 mL/min/{1.73_m2}Low>=60 mL/min/1.73m 2FWVUM[facility] Community HospitalGlucose [Mass/Vol]126 mg/dLHigh 74-106[facility] HospitalMagnesium [Mass/Vol]2.1 mg/dL1.8-2.4 [facility] HospitalPotassium [Moles/Vol]3.8 mmol/L3.5-5.1FWV[facility] Community HospitalProtein [Mass/Vol]6.6 g/dL6.4-8.2FSalem City Hospitalodium [Moles/Vol]144 mmol/P613-052HumtnynngMercy Health Fairfield HospitalUrea nitrogen [Mass/Vol]18.0 mg/dL7.0-18.0[facility] HospitalUrea nitrogen/Creatinine [Mass ratio]7.6 mg/mgMercy Health Fairfield HospitalLaboratory - Hematology and Cell countson 21-66-5200Ekfmenje granulocytes/100 WBC (Bld)0.3 %0.0-0.5[facility] Leukocytes [#/volume] corrected for nucleated erythrocytes in Blood by Automated counon 91-35-5803FQQ corrected for nucl RBC Auto (Bld) [#/Vol]Leukocytes [#/volume] corrected for nucleated erythrocytes in Blood by Automated coun 4.0-11.0[facility] HospitalLymphocytes Auto (Bld) [#/Vol]on 95-19-6919Rlodpdxuokn (Bld) [#/Vol]Lymphocytes [#/volume] in Blood by Automated count1.2-3.8[facility] HospitalLymphocytes/100 WBC Auto (Bld)on 57-52-7062Otutkpqauwr/100 WBC (Bld)Lymphocytes/100 leukocytes in Blood by Automated count20.5-60.0[facility] HospitalH Auto (RBC) [Entitic mass]on 10-30-6148FNF (RBC) [Entitic mass]MCH [Entitic mass] by Automated count 26.7-34.0[facility] HospitalMCHC Auto (RBC) [Mass/Vol]on 56-04-1714IUEN (RBC) [Mass/Vol]MCHC [Mass/volume] by Automated count29.9-35.2 [facility] HospitalMCV Auto (RBC) [Entitic vol]on 05-70-3371WOH (RBC) [Entitic vol]MCV [Entitic volume] by Automated count81.0-99.0[facility] HospitalMonocytes Auto (Bld) [#/Vol]on 49-69-6269Svafngfyh (Bld) [#/Vol]Automated blood monocyte count0.3-0.8[facility] Monocytes/100 WBC Auto (Bld)on 47-00-3416Utukqgpmf/100 WBC (Bld)Automated monocyte %1.7-12.0[facility] HospitalNeutrophils Auto (Bld) [#/Vol]on 86-03-1466Tcxnsbqnrjj (Bld) [#/Vol]Neutrophils [#/volume] in Blood by Automated count1.4-6.5FWVUMedicine [facility] HospitalNeutrophils/100 WBC Auto (Bld)on 61-13-7425Slouejdzhlz/100 WBC (Bld)Automated neutrophil %43.0-75.0 [facility] HospitalNo Panel Informationon 72-88-6132Tlxrhoicubp # (Auto)0.1 10 3/uL0.0-0.7FWVUMedicine [facility] Community HospitalImmature Granulocyte # (Auto)0.02 10 3/uL0.00-0.03[facility] HospitalTroponin I High Sensitivity6.6 pg/mL4.0-51.3FWVUMedicine Harrison Community HospitalComment on above: CUT-OFF POINTS HAVE BEEN ESTABLISHED BASED ON THE FOURTHUNIVERSAL DEFINITION OF MYOCARDIAL INFARCTION. THE UPPERREFERENCE LIMIT (URL) OF TROPONIN, DEFINED THE 99THPERCENTILE OF cTnI DISTRIBUTION IN A REFERENCE POPULATION,HAS BEEN CONFIRMED THE DECISION THRESHOLD FOR MIDIAGNOSIS.99TH PERCENTILE = 51.4 PG/MLNOTE: HIGH-SENSITIVITY TROPONIN ASSAY IS NOT INTENDED TO BEUSED IN ISOLATION BUT SHOULD BE INTERPRETED IN CONJUNCTIONWITH OTHER DIAGNOSTIC AND CLINICAL INFORMATION.6.6 pg/mL4.0-51.3[facility]2.1 mg/dL 1.8-2.4[facility]0.1 10 3/uL0.0-0.7[facility]3.1 g/dLLow3.4-5.0[facility]123 U/LHigh 46-116[facility]11 U/FCnl91-48RhnxqzpcpMercy Health [facility] Hospital12 U/GHxt87-88ElgdngleyMercy Health [facility]field Hospital0.02 10 3/uL0.00-0.03 [facility]7.6[facility]0.3 % 0.0-0.5[facility]18.0 mg/dL7.0-18.0[facility]8.6 mg/dL8.5-10.1[facility]108 mmol/LHigh 98-107[facility]24.5 mmol/L21.0-32.0[facility]2.36 mg/dLHigh0.55-1.02[facility]24Low>=60 mL/min/1.73m 2[facility]126 mg/oQDfxd12-833FtcaxldupMercy Health [facility]field Hospital3.8 mmol/L3.5-5.1[facility]144 mmol/T371-855PiynchefyMercy Health Fairfield Hospital0.8 mg/dL0.2-1.0[facility]6.6 g/dL6.4-8.2[facility] HospitalPlatelet mean volume Auto (Bld) [Entitic vol]on 00-49-5789Izxnsjdx mean volume (Bld) [Entitic vol]Platelet mean volume [Entitic volume] in Blood by Automated count9.5-13.5 [facility] HospitalPlatelets Auto (Bld) [#/Vol]on 11-22-2024 Platelets (Bld) [#/Vol]Platelets [#/volume] in Blood by Automated wtujw713-896 [facility] HospitalRBC Auto (Bld) [#/Vol]on 60-49-9717SPQ (Bld) [#/Vol]Erythrocytes [#/volume] in Blood by Automated countLow4.20-5.40[facility] Hospitalerum or plasma albumin/globulin mass ratioon 11-22-2024 Albumin/Globulin [Mass ratio]Serum or plasma albumin/globulin mass ratio [facility] Hospitalerum or plasma anion gap determinationon 97-52-1388Ykhqa gap [Moles/Vol]Serum or plasma anion gap determinationMercy Health Fairfield HospitalBasophils Auto (Bld) [#/Vol]on 06-89-1195Vmwriphcq (Bld) [#/Vol]Automated basophil count0.0-0.1[facility] Basophils/100 WBC Auto (Bld)on 27-05-3544Drupmwasl/100 WBC (Bld)Automated basophil %0.2-2.0[facility] HospitalEosinophils/100 WBC Auto (Bld) on 67-47-1303Urlibocyoag/100 WBC (Bld)Automated eosinophil %0.9-7.0[facility] HospitalErythrocyte distribution width Auto (RBC) [Ratio]on 23-29-6265Zlddlawreea distribution width (RBC) [Ratio]Erythrocyte distribution width [Ratio] by Automated count11.0-15.0[facility] Estimated glomerular filtration rate (GFR) non- Americanon 11-21-2024 GFR/1.73 sq M.predicted among non-blacks MDRD (S/P/Bld) [Vol rate/Area]Estimated glomerular filtration rate (GFR) non- AmericanLow>=60 mL/min/1.73m 2 [facility] HospitalGlobulin Calc (S) [Mass/Vol]on 11-21-2024 Globulin (S) [Mass/Vol]Serum globulin measurement by calculation (mass/volume) [facility] HospitalHematocrit Auto (Bld) [Volume fraction]on 40-27-6752Dmgaejlgpi (Bld) [Volume fraction]Hematocrit [Volume Fraction] of Blood by Automated count36.0-48.0[facility] HospitalHemoglobin [Mass/volume] in Bloodon 96-93-9028Pvkvebywri (Bld) [Mass/Vol]Hemoglobin [Mass/volume] in DycsoHgk23.0-16.0[facility] Hemoglobin.gastrointestinal [Presence] in Stoolon 11-21-2024 Hemoglobin.gastrointestinal Ql (Stl)Hemoglobin.gastrointestinal [Presence] in StoolMercy Health Fairfield HospitalINR in Platelet poor plasma by Coagulation assayon 99-16-1373JWP Coag (PPP) [Relative time]INR in Platelet poor plasma by Coagulation assayMercy Health Fairfield HospitalComment on above:DESIRED INR:2.0-3.0 CONDITIONS NOT LISTED BELOW2.5-3.5 FOR PROSTHETIC HEART VALVE REPLACEMENT2.5-3.5 RECURRENT THROMBOSISLaboratory - Chemistry and Chemistry - challengeon 62-79-1436Bxucyzv [Mass/Vol]3.0 g/dLLow3.4-5.0[facility] HospitalALP [Catalytic activity/Vol]124 U/IKqnj82-708TgzyktdvjMercy Health Fairfield HospitalALT [Catalytic activity/Vol]12 U/OKwh93-06RiwenpkmyMercy Health Fairfield HospitalAST [Catalytic activity/Vol]14 U/GZcb40-01ZgryycwqsMercy Health Fairfield HospitalBilirubin [Mass/Vol]0.5 mg/dL0.2-1.0[facility] HospitalCalcium [Mass/Vol]8.3 mg/dLLow8.5-10.1[facility] Chloride [Moles/Vol]110 mmol/WKrze03-555NnbroqyxmMercy Health Fairfield HospitalCO2 [Moles/Vol]22.7 mmol/L21.0-32.0[facility] HospitalCreatinine [Mass/Vol]2.36 mg/dLHigh0.55-1.02[facility] HospitalGFR/1.73 sq M.predicted MDRD (S/P/Bld) [Vol rate/Area]24 mL/min/{1.73_m2}Low>=60 mL/min/1.73m 2FW[facility] HospitalGlucose [Mass/Vol]151 mg/dLHigh 74-106[facility] HospitalNatriuretic peptide B (Bld) [Mass/Vol] 2945.0 pg/mLCritically high<=1800.0[facility] HospitalComment on above:RESULTS CALLED TO FLAKO KEYES,PAPotassium [Moles/Vol]4.5 mmol/L3.5-5.1 [facility] HospitalProtein [Mass/Vol]6.6 g/dL6.4-8.2FSalem City Hospitalodium [Moles/Vol]143 mmol/B531-319HefpzbmbmMercy Health Fairfield HospitalUrea nitrogen [Mass/Vol]17.0 mg/dL7.0-18.0[facility] HospitalUrea nitrogen/Creatinine [Mass ratio]7.2 mg/mgMercy Health Fairfield HospitalLaboratory - Hematology and Cell countson 28-63-1697Ddrxiafd granulocytes/100 WBC (Bld)0.4 %0.0-0.5[facility] Laboratory - Microbiology and Antimicrobial susceptibilityon 11-21-2024 SARS-CoV-2 (COVID-19) RNA RADHA+probe Ql (Unsp spec)NegativeNEGATIVEMercy Health Fairfield HospitalComment on above:This test has not been FDA cleared or approved, but has beenauthorized by the FDA under an Emergency Use Authorization(EUA) for use by authorized laboratories certified underIA that meet the requirements to perform moderate or highcomplexity testing. This test has been authorized only forthe detection of proteins from SARS-CoV-2, not for any otherviruses or pathogens. The emergency use of this test isauthorized for the duration of the declaration thatcircumstances exist justifying the authoriz ation ofemergency use of in vitro diagnostic tests for detectionand/or diagnosis of Covid-19 under section 564(b)(1) of the[facility], [place] 360bbb-3(b)(1), unless the declaration isterminated or authorization is revoked sooner.Leukocytes [#/volume] corrected for nucleated erythrocytes in Blood by Automated counon 41-87-6210ALQ corrected for nucl RBC Auto (Bld) [#/Vol]Leukocytes [#/volume] corrected for nucleated erythrocytes in Blood by Automated coun4.0-11.0[facility] HospitalLymphocytes Auto (Bld) [#/Vol]on 06-38-9031Dvjuwaxxrje (Bld) [#/Vol]Lymphocytes [#/volume] in Blood by Automated count1.2-3.8[facility] HospitalLymphocytes/100 WBC Auto (Bld)on 11-21-2024 Lymphocytes/100 WBC (Bld)Lymphocytes/100 leukocytes in Blood by Automated count 20.5-60.0[facility] HospitalH Auto (RBC) [Entitic mass]on 22-74-1721WSX (RBC) [Entitic mass]MCH [Entitic mass] by Automated count26.7-34.0 [facility] HospitalMCHC Auto (RBC) [Mass/Vol]on 85-60-9449ZNRD (RBC) [Mass/Vol]MCHC [Mass/volume] by Automated count29.9-35.2[facility] HospitalMCV Auto (RBC) [Entitic vol]on 38-41-6692PWX (RBC) [Entitic vol] MCV [Entitic volume] by Automated count81.0-99.0[facility] HospitalMonocytes Auto (Bld) [#/Vol]on 07-20-8743Pdczpjfga (Bld) [#/Vol]Automated blood monocyte count0.3-0.8[facility] HospitalMonocytes/100 WBC Auto (Bld)on 23-21-9337Lhpuzrgxc/100 WBC (Bld)Automated monocyte %1.7-12.0 [facility] HospitalNeutrophils Auto (Bld) [#/Vol]on 11-21-2024 Neutrophils (Bld) [#/Vol]Neutrophils [#/volume] in Blood by Automated count 1.4-6.5[facility] HospitalNeutrophils/100 WBC Auto (Bld)on 02-36-9295Jasyzkuqaoe/100 WBC (Bld)Automated neutrophil %43.0-75.0[facility] HospitalNo Panel Informationon 93-09-8325Emkmvhs Influenza Type A AntigenNegativeMercy Health Fairfield HospitalComment on above:Negative for Flu A protein antigen. Infection due to Flu Acannot be ruled out. Flu A antigen in thesample may bebelow the detection limit of the test.Bedside Influenza Type B AntigenNegativeMercy Health Fairfield HospitalComment on above:Negative for Flu B protein antigen. Infection due to Flu Bcannot be ruled out. Flu B antigen in thesample may bebelow the detection limit of the test.NegativeMercy Health Fairfield HospitalEosinophils # (Auto)0.1 10 3/uL0.0-0.7[facility] HospitalImmature Granulocyte # (Auto)0.03 10 3/uL0.00-0.03[facility] HospitalTroponin I High Sensitivity<4.0 pg/mLLow4.0-51.3[facility] HospitalComment on above:CUT-OFF POINTS HAVE BEEN ESTABLISHED BASED ON THE FOURTHUNIVERSAL DEFINITION OF MYOCARDIAL INFARCTION. THE UPPERREFERENCE LIMIT (URL) OF TROPONIN, DEFINED THE 99THPERCENTILE OF cTnI DISTRIBUTION IN A REFERENCE POPULATION,HAS BEEN CONFIRMED THE DECISION THRESHOLD FOR MIDIAGNOSIS.99TH PERCENTILE = 51.4 PG/MLNOTE: HIGH-SENSITIVITY TROPONIN ASSAY IS NOT INTENDED TO BEUSED IN ISOLATION BUT SHOULD BE INTERPRETED IN CONJUNCTIONWITH OTHER DIAGNOSTIC AND CLINICAL INFORMATION.2945.0 pg/mL Critically high<=1800.0[facility]<4.0 pg/mLLow4.0-51.3 [facility]0.1 10 3/uL0.0-0.7[facility]3.0 g/dLLow3.4-5.0[facility]124 U/SSnht51-482 [facility]12 U/XHji70-32KqiulcgrrMercy Health [facility] Hospital 14 U/ZIoi47-38JgplrzbaaMer[facility] Health [facility] Hospital0.03 10 3/uL0.00-0.03[facility]7.2[facility]0.4 %0.0-0.5[facility]17.0 mg/dL7.0-18.0[facility]8.3 mg/dLLow8.5-10.1[facility]110 mmol/NMyiu05-704QywzqbsjtMercy Health [facility] Hospital22.7 mmol/L21.0-32.0[facility]2.36 mg/dLHigh0.55-1.02[facility]24Low>=60 mL/min/1.73m 2 [facility]151 mg/lOZscd05-393TwnrbhtylMer[facility] Health [facility] Hospital4.5 mmol/L3.5-5.1[facility]143 mmol/U667-701 [facility]0.5 mg/dL0.2-1.0[facility]6.6 g/dL6.4-8.2[facility] HospitalPlatelet mean volume Auto (Bld) [Entitic vol]on 35-07-0723Uxupggnf mean volume (Bld) [Entitic vol]Platelet mean volume [Entitic volume] in Blood by Automated count9.5-13.5FW[facility] HospitalPlatelets Auto (Bld) [#/Vol]on 98-82-4496Sipihgzxr (Bld) [#/Vol]Platelets [#/volume] in Blood by Automated -178XubxdbpgaMercy Health Fairfield HospitalProthrombin time (PT)on 13-77-6436HK Coag (PPP) [Time]Prothrombin time (PT)9.0-11.6FW[facility] HospitalRBC Auto (Bld) [#/Vol]on 48-04-7768WAV (Bld) [#/Vol]Erythrocytes [#/volume] in Blood by Automated count Low4.20-5.40[facility] Hospitalerum or plasma albumin/globulin mass ratioon 33-49-4795Neucubc/Globulin [Mass ratio]Serum or plasma albumin/globulin mass ratioEast Liverpool City Hospitalerum or plasma anion gap determinationon 56-87-4708Jeiva gap [Moles/Vol]Serum or plasma anion gap determinationMercy Health Fairfield HospitalBasophils Auto (Bld) [#/Vol]on 90-46-4166Mamyuzvqz (Bld) [#/Vol]Automated basophil count0.0-0.1[facility] HospitalBasophils/100 WBC Auto (Bld)on 22-72-4256Mymefghoa/100 WBC (Bld)Automated basophil %0.2-2.0[facility] Eosinophils/100 WBC Auto (Bld)on 34-88-0373Bxfdnbczaud/100 WBC (Bld)Automated eosinophil %0.9-7.0[facility] HospitalErythrocyte distribution width Auto (RBC) [Ratio]on 32-73-9434Xnnjgzlafrj distribution width (RBC) [Ratio]Erythrocyte distribution width [Ratio] by Automated ybvhdJzhh80.0-15.0 [facility] HospitalEstimated glomerular filtration rate (GFR) non- Americanon 84-86-2197UTP/1.73 sq M.predicted among non-blacks MDRD (S/P/Bld) [Vol rate/Area]Estimated glomerular filtration rate (GFR) non- AmericanLow>=60 mL/min/1.73m 2FW[facility] HospitalGlobulin Calc (S) [Mass/Vol]on 50-41-3482Jtvrjybz (S) [Mass/Vol]Serum globulin measurement by calculation (mass/volume)[facility] HospitalHematocrit Auto (Bld) [Volume fraction]on 25-56-2910Pnsvnrjptg (Bld) [Volume fraction]Hematocrit [Volume Fraction] of Blood by Automated jtoguGle35.0-48.0[facility] HospitalHemoglobin [Mass/volume] in Bloodon 85-79-1516Wfxkhtvpir (Bld) [Mass/Vol]Hemoglobin [Mass/volume] in SolacAzu18.0-16.0[facility] HospitalLaboratory - Chemistry and Chemistry - challengeon 10-14-2024 Albumin [Mass/Vol]2.5 g/dLLow3.4-5.0[facility] HospitalALP [Catalytic activity/Vol]79 U/H31-497HlfufyqqyMercy Health Fairfield HospitalALT [Catalytic activity/Vol]18 U/H61-33PhcsqbuvvMercy Health Fairfield HospitalAST [Catalytic activity/Vol]15 U/R79-61PvdvnvojkMercy Health Fairfield HospitalBilirubin [Mass/Vol]0.6 mg/dL0.2-1.0[facility] HospitalCalcium [Mass/Vol]8.4 mg/dLLow8.5-10.1[facility] HospitalChloride [Moles/Vol]113 mmol/L Jhpu29-215EhwfgleukMercy Health Fairfield HospitalCO2 [Moles/Vol]20.4 mmol/LLow 21.0-32.0[facility] HospitalCreatinine [Mass/Vol]2.73 mg/dLHigh 0.55-1.02[facility] HospitalGFR/1.73 sq M.predicted MDRD (S/P/Bld) [Vol rate/Area]20 mL/min/{1.73_m2}Low>=60 mL/min/1.73m 2FW[facility] HospitalGlucose [Mass/Vol]142 mg/pBKbup38-736IvlfftxsoMercy Health Fairfield HospitalPotassium [Moles/Vol]4.3 mmol/L3.5-5.1[facility] Protein [Mass/Vol]5.4 g/dLLow6.4-8.2FSalem City Hospitalodium [Moles/Vol]143 mmol/I284-150JxtbserqbMercy Health Fairfield HospitalUrea nitrogen [Mass/Vol]37.0 mg/dLHigh7.0-18.0[facility] HospitalUrea nitrogen/Creatinine [Mass ratio]13.6 mg/mgMercy Health Fairfield Hospital Laboratory - Hematology and Cell countson 47-35-9715Bqfeumgo granulocytes/100 WBC (Bld)0.4 %0.0-0.5FW[facility] HospitalLeukocytes [#/volume] corrected for nucleated erythrocytes in Blood by Automated counon 62-23-1295KSO corrected for nucl RBC Auto (Bld) [#/Vol]Leukocytes [#/volume] corrected for nucleated erythrocytes in Blood by Automated coun4.0-11.0[facility] HospitalLymphocytes Auto (Bld) [#/Vol]on 40-09-5147Ofacevaglet (Bld) [#/Vol]Lymphocytes [#/volume] in Blood by Automated count1.2-3.8[facility] HospitalLymphocytes/100 WBC Auto (Bld)on 10-14-2024 Lymphocytes/100 WBC (Bld)Lymphocytes/100 leukocytes in Blood by Automated count 20.5-60.0[facility] HospitalH Auto (RBC) [Entitic mass]on 36-83-1621LEU (RBC) [Entitic mass]MCH [Entitic mass] by Automated count26.7-34.0 [facility] HospitalMCHC Auto (RBC) [Mass/Vol]on 31-97-0752IGNE (RBC) [Mass/Vol]MCHC [Mass/volume] by Automated count29.9-35.2[facility] HospitalMCV Auto (RBC) [Entitic vol]on 16-10-3425VCF (RBC) [Entitic vol] MCV [Entitic volume] by Automated count81.0-99.0[facility] HospitalMonocytes Auto (Bld) [#/Vol]on 92-43-0653Wxfmggmvg (Bld) [#/Vol]Automated blood monocyte count0.3-0.8[facility] HospitalMonocytes/100 WBC Auto (Bld)on 65-01-7916Xyeghubrh/100 WBC (Bld)Automated monocyte %1.7-12.0 [facility] HospitalMultiple labson 44-23-2153SbqOeiaja Health SystemNeutrophils Auto (Bld) [#/Vol]on 93-44-0679Kgwpslzahbn (Bld) [#/Vol] Neutrophils [#/volume] in Blood by Automated count1.4-6.5FW[facility] HospitalNeutrophils/100 WBC Auto (Bld)on 79-29-4756Slpjuivewny/100 WBC (Bld)Automated neutrophil %43.0-75.0[facility] HospitalNo Panel Informationon 24-38-8278Yzehixmcjdx # (Auto)0.1 10 3/uL0.0-0.7FW[facility] HospitalImmature Granulocyte # (Auto)0.03 10 3/uL0.00-0.03[facility]0.1 10 3/uL0.0-0.7[facility]0.03 10 3/uL0.00-0.03[facility]0.4 %0.0-0.5[facility]2.5 g/dLLow3.4-5.0[facility]79 U/L46-116 [facility]18 U/W95-96GjlcwcawrMercy Health [facility]field Hospital15 U/J16-28WabzvfbhmMercy Health Fairfield Hospital13.6[facility] 37.0 mg/dLHigh7.0-18.0[facility]8.4 mg/dLLow8.5-10.1 [facility]113 mmol/HAzin34-058KmpdlbkifMercy Health [facility]field Hospital20.4 mmol/LLow21.0-32.0[facility]2.73 mg/dLHigh 0.55-1.02[facility]20Low>=60 mL/min/1.73m 2[facility]142 mg/bKDhfd23-700MfibgsfeiMercy Health [facility]field Hospital4.3 mmol/L3.5-5.1[facility]143 mmol/A682-826ZycqjfcpbMercy Health [facility]field Hospital0.6 mg/dL0.2-1.0[facility]5.4 g/dL Low6.4-8.2FW[facility] HospitalPlatelet mean volume Auto (Bld) [Entitic vol]on 60-79-4912Txdncmaf mean volume (Bld) [Entitic vol]Platelet mean volume [Entitic volume] in Blood by Automated count9.5-13.5FW[facility] HospitalPlatelets Auto (Bld) [#/Vol]on 77-33-1904Vjytbcvyb (Bld) [#/Vol] Platelets [#/volume] in Blood by Automated jucutTwh486-316VywutnrkhMercy Health Fairfield HospitalRBC Auto (Bld) [#/Vol]on 81-18-3454OXH (Bld) [#/Vol]Erythrocytes [#/volume] in Blood by Automated countLow4.20-5.40[facility] Hospitalerum or plasma albumin/globulin mass ratioon 35-10-7703Zpkgwpv/Globulin [Mass ratio]Serum or plasma albumin/globulin mass ratioEast Liverpool City Hospitalerum or plasma anion gap determinationon 02-03-7392Qeodk gap [Moles/Vol]Serum or plasma anion gap determinationMercy Health Fairfield HospitalBasophils Auto (Bld) [#/Vol]on 11-64-5916Zwltipcvp (Bld) [#/Vol]Automated basophil count0.0-0.1FW[facility] HospitalBasophils/100 WBC Auto (Bld)on 82-95-4825Czkmceloo/100 WBC (Bld)Automated basophil %0.2-2.0[facility] HospitalEosinophils/100 WBC Auto (Bld)on 10-13-2024 Eosinophils/100 WBC (Bld)Automated eosinophil %0.9-7.0[facility] HospitalErythrocyte distribution width Auto (RBC) [Ratio]on 83-28-9186Tcgpwiucipl distribution width (RBC) [Ratio]Erythrocyte distribution width [Ratio] by Automated ivcvaTnmh17.0-15.0[facility] HospitalEstimated glomerular filtration rate (GFR) non- Americanon 51-81-7727LEG/1.73 sq M.predicted among non-blacks MDRD (S/P/Bld) [Vol rate/Area]Estimated glomerular filtration rate (GFR) non- AmericanLow>=60 mL/min/1.73m 2FW[facility] HospitalGlobulin Calc (S) [Mass/Vol]on 78-85-9277Hgykmowq (S) [Mass/Vol]Serum globulin measurement by calculation (mass/volume)[facility] HospitalHematocrit Auto (Bld) [Volume fraction]on 10-13-2024 Hematocrit (Bld) [Volume fraction]Hematocrit [Volume Fraction] of Blood by Automated rvcvoLjf41.0-48.0[facility] HospitalHemoglobin [Mass/volume] in Bloodon 02-95-1517Nabrvzebzp (Bld) [Mass/Vol]Hemoglobin [Mass/volume] in VmkieQzl74.0-16.0[facility] HospitalLaboratory - Chemistry and Chemistry - challengeon 67-52-7440Tiwwzbk [Mass/Vol]2.6 g/dLLow 3.4-5.0[facility] HospitalALP [Catalytic activity/Vol]75 U/L46-116 [facility] HospitalALT [Catalytic activity/Vol]15 U/L14-59 [facility] HospitalAST [Catalytic activity/Vol]12 U/IOki54-96 [facility] HospitalBilirubin [Mass/Vol]0.8 mg/dL0.2-1.0[facility] HospitalCalcium [Mass/Vol]7.9 mg/dLLow8.5-10.1FW[facility] HospitalChloride [Moles/Vol]112 mmol/BDqtz38-687UnrgrdtjfMercy Health Fairfield HospitalCO2 [Moles/Vol]22.5 mmol/L21.0-32.0[facility] Creatinine [Mass/Vol]2.77 mg/dLHigh0.55-1.02[facility] GFR/1.73 sq M.predicted MDRD (S/P/Bld) [Vol rate/Area]20 mL/min/{1.73_m2}Low>=60 mL/min/1.73m 2FW[facility] HospitalGlucose [Mass/Vol]138 mg/dLHigh 74-106[facility] HospitalPotassium [Moles/Vol]4.5 mmol/L3.5-5.1 [facility] HospitalProtein [Mass/Vol]5.4 g/dLLow6.4-8.2FSalem City Hospitalodium [Moles/Vol]145 mmol/H605-283EpbehuehaMercy Health Fairfield HospitalUrea nitrogen [Mass/Vol]49.0 mg/dLHigh7.0-18.0[facility] HospitalUrea nitrogen/Creatinine [Mass ratio]17.7 mg/mgMercy Health Fairfield HospitalLaboratory - Hematology and Cell countson 52-55-1468Vqkjihxo granulocytes/100 WBC (Bld)0.5 %0.0-0.5[facility] Leukocytes [#/volume] corrected for nucleated erythrocytes in Blood by Automated counon 95-29-7622DCX corrected for nucl RBC Auto (Bld) [#/Vol]Leukocytes [#/volume] corrected for nucleated erythrocytes in Blood by Automated coun 4.0-11.0[facility] HospitalLymphocytes Auto (Bld) [#/Vol]on 52-41-5777Yoitgajdkqk (Bld) [#/Vol]Lymphocytes [#/volume] in Blood by Automated count1.2-3.8[facility] HospitalLymphocytes/100 WBC Auto (Bld)on 71-04-7254Zqxztukchrp/100 WBC (Bld)Lymphocytes/100 leukocytes in Blood by Automated count20.5-60.0[facility] HospitalH Auto (RBC) [Entitic mass]on 17-33-3313WZY (RBC) [Entitic mass]MCH [Entitic mass] by Automated count 26.7-34.0[facility] HospitalMCHC Auto (RBC) [Mass/Vol]on 87-81-8095QVCH (RBC) [Mass/Vol]MCHC [Mass/volume] by Automated count29.9-35.2 [facility] HospitalMCV Auto (RBC) [Entitic vol]on 41-32-1217PJP (RBC) [Entitic vol]MCV [Entitic volume] by Automated count81.0-99.0[facility] HospitalMonocytes Auto (Bld) [#/Vol]on 78-36-3623Hkkzygusk (Bld) [#/Vol]Automated blood monocyte count0.3-0.8[facility] Monocytes/100 WBC Auto (Bld)on 82-00-6973Dxoquangk/100 WBC (Bld)Automated monocyte %1.7-12.0[facility] HospitalNeutrophils Auto (Bld) [#/Vol]on 20-44-5573Jgddantktmu (Bld) [#/Vol]Neutrophils [#/volume] in Blood by Automated count1.4-6.5FW[facility] HospitalNeutrophils/100 WBC Auto (Bld)on 05-97-9589Ykqnpclotnj/100 WBC (Bld)Automated neutrophil %43.0-75.0 [facility] HospitalNo Panel Informationon 71-85-7786Vokfhugyioa # (Auto)0.1 10 3/uL0.0-0.7FW[facility] HospitalImmature Granulocyte # (Auto)0.04 10 3/uLHigh0.00-0.03[facility]0.1 10 3/uL 0.0-0.7[facility]2.6 g/dLLow3.4-5.0[facility]75 U/I04-686MulqnitdhMercy Health [facility] Hospital15 U/C96-70BgnqrsjxmMercy Health [facility]field Hospital12 U/PFwm80-13GxqdnywftMercy Health [facility] Hospital0.04 10 3/uLHigh0.00-0.03[facility]17.7[facility]0.5 %0.0-0.5[facility]49.0 mg/dLHigh7.0-18.0 [facility]7.9 mg/dLLow8.5-10.1[facility]112 mmol/NAfkx61-595UbuoxhsabMercy Health Fairfield Hospital22.5 mmol/L21.0-32.0 [facility]2.77 mg/dLHigh0.55-1.02[facility]20Low>=60 mL/min/1.73m 2FW[facility]138 mg/dL Mzno31-900LjxmqjdaqMercy Health Fairfield Hospital4.5 mmol/L3.5-5.1FW[facility]145 mmol/P889-212PxdmqqewwMercy Health Fairfield Hospital0.8 mg/dL0.2-1.0 [facility]5.4 g/dLLow6.4-8.2FWVUMedicine [facility] Community HospitalPlatelet mean volume Auto (Bld) [Entitic vol]on 41-94-0957Zhrdwaku mean volume (Bld) [Entitic vol]Platelet mean volume [Entitic volume] in Blood by Automated count9.5-13.5FWVUMedicine [facility] Community HospitalPlatelets Auto (Bld) [#/Vol]on 08-47-0448Hmbvjzkps (Bld) [#/Vol]Platelets [#/volume] in Blood by Automated -531IvtmgwifaMercy Health Fairfield HospitalRBC Auto (Bld) [#/Vol]on 30-78-7703DMP (Bld) [#/Vol]Erythrocytes [#/volume] in Blood by Automated count Low4.20-5.40[place] Hospitalerum or plasma albumin/globulin mass ratioon 97-39-6513Sfegjwx/Globulin [Mass ratio]Serum or plasma albumin/globulin mass ratioEast Liverpool City Hospitalerum or plasma anion gap determinationon 29-50-4946Vfdlc gap [Moles/Vol]Serum or plasma anion gap determinationMercy Health Fairfield HospitalBasophils Auto (Bld) [#/Vol]on 60-08-1979Ouzncfbdq (Bld) [#/Vol]Automated basophil count0.0-0.1FWVUMedicine [facility] Community HospitalBasophils/100 WBC Auto (Bld)on 38-91-4129Fgcataoyl/100 WBC (Bld)Automated basophil %0.2-2.0[facility] Eosinophils/100 WBC Auto (Bld)on 40-48-8879Hxpfritkdeg/100 WBC (Bld)Automated eosinophil %0.9-7.0[facility] HospitalErythrocyte distribution width Auto (RBC) [Ratio]on 88-74-0082Tehstxmhhwe distribution width (RBC) [Ratio]Erythrocyte distribution width [Ratio] by Automated count11.0-15.0 [facility] HospitalEstimated glomerular filtration rate (GFR) non- Americanon 35-13-1246YWO/1.73 sq M.predicted among non-blacks MDRD (S/P/Bld) [Vol rate/Area]Estimated glomerular filtration rate (GFR) non- AmericanLow>=60 mL/min/1.73m 2FWVUMedicine Harrison Community HospitalGlobulin Calc (S) [Mass/Vol]on 11-27-5584Smlwgtpb (S) [Mass/Vol]Serum globulin measurement by calculation (mass/volume)[facility] HospitalHematocrit Auto (Bld) [Volume fraction]on 57-22-2563Ywkodrbuyj (Bld) [Volume fraction]Hematocrit [Volume Fraction] of Blood by Automated count36.0-48.0[facility] HospitalHemoglobin [Mass/volume] in Bloodon 19-59-7591Rxlohocfbb (Bld) [Mass/Vol] Hemoglobin [Mass/volume] in AkybcVby33.0-16.0[facility] Laboratory - Chemistry and Chemistry - challengeon 95-97-5260Mzaabzd [Mass/Vol] 2.3 g/dLLow3.4-5.0[facility] HospitalALP [Catalytic activity/Vol] 66 U/C24-375CogwrvceqMercy Health Fairfield HospitalALT [Catalytic activity/Vol]13 U/L Rqp77-57KmmrtfbkoMercy Health Fairfield HospitalAST [Catalytic activity/Vol]10 U/LLow 15-37[facility] HospitalBilirubin [Mass/Vol]0.3 mg/dL0.2-1.0 [facility] HospitalCalcium [Mass/Vol]8.1 mg/dLLow8.5-10.1FWVUM[facility] Community HospitalChloride [Moles/Vol]112 mmol/VGgze59-696EtncakfvcMercy Health Fairfield HospitalCO2 [Moles/Vol]22.7 mmol/L21.0-32.0[facility] HospitalCreatinine [Mass/Vol]3.09 mg/dLHigh0.55-1.02[facility] HospitalGFR/1.73 sq M.predicted MDRD (S/P/Bld) [Vol rate/Area]18 mL/min/{1.73_m2}Low>=60 mL/min/1.73m 2FWVUM[facility] Community HospitalGlucose [Mass/Vol]138 mg/iTRhgm56-515PcwaxkbnjMercy Health Fairfield HospitalPotassium [Moles/Vol]4.7 mmol/L3.5-5.1FWV[facility] HospitalProtein [Mass/Vol] 4.9 g/dLLow6.4-8.2FSalem City Hospitalodium [Moles/Vol]144 mmol/L 136-145[facility] HospitalUrea nitrogen [Mass/Vol]69.0 mg/dLHigh 7.0-18.0[facility] HospitalUrea nitrogen/Creatinine [Mass ratio] 22.3 mg/mgMercy Health Fairfield HospitalLaboratory - Hematology and Cell countson 70-40-6075Ztwhzqoo granulocytes/100 WBC (Bld)0.3 %0.0-0.5FWVUMed[facility] Community HospitalLeukocytes [#/volume] corrected for nucleated erythrocytes in Blood by Automated counon 88-57-0452EWH corrected for nucl RBC Auto (Bld) [#/Vol]Leukocytes [#/volume] corrected for nucleated erythrocytes in Blood by Automated coun4.0-11.0[facility] HospitalLymphocytes Auto (Bld) [#/Vol]on 66-31-1316Txbnjpgcmif (Bld) [#/Vol]Lymphocytes [#/volume] in Blood by Automated count1.2-3.8[facility] HospitalLymphocytes/100 WBC Auto (Bld)on 76-62-2479Pnkbhweyxut/100 WBC (Bld)Lymphocytes/100 leukocytes in Blood by Automated count20.5-60.0[facility] HospitalH Auto (RBC) [Entitic mass]on 99-58-0895WER (RBC) [Entitic mass]MCH [Entitic mass] by Automated count26.7-34.0[facility] HospitalHC Auto (RBC) [Mass/Vol]on 05-25-9381MRBE (RBC) [Mass/Vol]MCHC [Mass/volume] by Automated count29.9-35.2FWVUM[facility] HospitalMCV Auto (RBC) [Entitic vol]on 35-64-7196TWY (RBC) [Entitic vol]MCV [Entitic volume] by Automated countHigh 81.0-99.0[facility] HospitalMonocytes Auto (Bld) [#/Vol]on 17-06-6677Esvyxalan (Bld) [#/Vol]Automated blood monocyte count0.3-0.8[facility] HospitalMonocytes/100 WBC Auto (Bld)on 90-94-1520Jvzexoovs/100 WBC (Bld)Automated monocyte %1.7-12.0[facility] Neutrophils Auto (Bld) [#/Vol]on 04-28-2525Nfxhtkjemvl (Bld) [#/Vol]Neutrophils [#/volume] in Blood by Automated count1.4-6.5[facility] Neutrophils/100 WBC Auto (Bld)on 40-27-5887Laognnzpcsh/100 WBC (Bld)Automated neutrophil %43.0-75.0[facility] HospitalNo Panel Informationon 09-19-0234Iveyawbewjso pylori Urease TestNegativeMercy Health Fairfield HospitalNegativeMercy Health Fairfield HospitalEosinophils # (Auto)0.1 10 3/uL 0.0-0.7FWVUM[facility] Community HospitalImmature Granulocyte # (Auto)0.02 10 3/uL0.00-0.03[facility]0.1 10 3/uL0.0-0.7[facility]2.3 g/dLLow3.4-5.0[facility]66 U/L 46-116[facility]13 U/FZdv69-99WllhzvixzMercy Health Fairfield Hospital10 U/KDpd48-61TlwusrydyMercy Health Fairfield Hospital0.02 10 3/uL0.00-0.03 [facility]22.3FW[facility]0.3 % 0.0-0.5[facility]69.0 mg/dLHigh7.0-18.0[facility]8.1 mg/dLLow8.5-10.1[facility]112 mmol/L Xcfw01-409XuztzodqpMercy Health Fairfield Hospital22.7 mmol/L21.0-32.0[facility]3.09 mg/dLHigh0.55-1.02[facility] 18Low>=60 mL/min/1.73m 2[facility]138 mg/bOSfsi86-146 [facility]4.7 mmol/L3.5-5.1[facility]144 mmol/T523-649CxzjaizieMercy Health Fairfield Hospital0.3 mg/dL0.2-1.0 [facility]4.9 g/dLLow6.4-8.2FW[facility] HospitalNo Panel InformationOrdered By: Flako Huggins on 33-73-4563Vcvxgaiqbjdgn Pathology TestSee commentMercy Health Fairfield HospitalComment on above:See report. Scanned copy available in EMR.See commentMercy Health Fairfield HospitalPathology Request for Lab Corpon 41-46-1192Mbmyjpxro Request for Lab Elizabeth NormalThe Person Memorial Hospital Physician GroupComment on above:Order Comment: PATHOLOGY GI SPECIMENResult Comment: See report. Scanned copy available in EMR. PERFORMED BY: [facility] [address] [place] [address] PATHOLOGIST SENIOR HR MANAGER CARLOS A CARD M.D.Performed By: #### PATH TO [facility] ####[facility] [id number] [place] [address] USAPlatelet mean volume Auto (Bld) [Entitic vol]on 63-90-9130Sdssyelf mean volume (Bld) [Entitic vol] Platelet mean volume [Entitic volume] in Blood by Automated count9.5-13.5 [facility] HospitalPlatelets Auto (Bld) [#/Vol]on 10-12-2024 Platelets (Bld) [#/Vol]Platelets [#/volume] in Blood by Automated rbubn525-938 [facility] HospitalRBC Auto (Bld) [#/Vol]on 02-26-8548MOO (Bld) [#/Vol]Erythrocytes [#/volume] in Blood by Automated countLow4.20-5.40East [facility] City Hospitalerum or plasma albumin/globulin mass ratioon 10-12-2024 Albumin/Globulin [Mass ratio]Serum or plasma albumin/globulin mass ratio [facility] Hospitalerum or plasma anion gap determinationon 68-24-2988Yfdaq gap [Moles/Vol]Serum or plasma anion gap determinationEast Liverpool City Hospitalurgical Pathologyon 82-06-0041AiqRtzfkySt. Francis Hospital Basophils Auto (Bld) [#/Vol]on 75-14-1345Ntypwklko (Bld) [#/Vol]Automated basophil count0.0-0.1FWVUM[facility] Community HospitalBasophils/100 WBC Auto (Bld)on 90-80-4388Nlpzzrdgg/100 WBC (Bld)Automated basophil %0.2-2.0[facility] HospitalEosinophils/100 WBC Auto (Bld)on 10-11-2024 Eosinophils/100 WBC (Bld)Automated eosinophil %Low0.9-7.0[facility] HospitalErythrocyte distribution width Auto (RBC) [Ratio]on 10-11-2024 Erythrocyte distribution width (RBC) [Ratio]Erythrocyte distribution width [Ratio] by Automated count11.0-15.0[facility] HospitalEstimated glomerular filtration rate (GFR) non- Americanon 73-25-1678KEC/1.73 sq M.predicted among non-blacks MDRD (S/P/Bld) [Vol rate/Area]Estimated glomerular filtration rate (GFR) non- AmericanLow>=60 mL/min/1.73m 2FWVUM[facility] Harrison Community HospitalGlobulin Calc (S) [Mass/Vol]on 23-88-1749Qzbggued (S) [Mass/Vol]Serum globulin measurement by calculation (mass/volume)[facility] HospitalHematocrit Auto (Bld) [Volume fraction]on 10-11-2024 Hematocrit (Bld) [Volume fraction]Hematocrit [Volume Fraction] of Blood by Automated countCritically low36.0-48.0[facility] HospitalComment on above:RESULTS CALLED TO KOREY MUNOZ RN @BY Shanti Villagomez at 1851Hemoglobin [Mass/volume] in Bloodon 78-54-4863Nmkrdquims (Bld) [Mass/Vol] Hemoglobin [Mass/volume] in WpnitAel49.0-16.0[facility] Laboratory - Chemistry and Chemistry - challengeon 18-40-3060Pujwxcd [Mass/Vol] 2.1 g/dLLow3.4-5.0[facility] HospitalALP [Catalytic activity/Vol] 69 U/T75-467PqvbzrhdzMercy Health Fairfield HospitalALT [Catalytic activity/Vol]12 U/L Hsi83-57VanxwuvygMercy Health Fairfield HospitalAST [Catalytic activity/Vol]10 U/LLow 15-37[facility] HospitalBilirubin [Mass/Vol]0.3 mg/dL0.2-1.0 [facility] HospitalCalcium [Mass/Vol]8.1 mg/dLLow8.5-10.1FWVUM[facility] Community HospitalChloride [Moles/Vol]111 mmol/RWtqu50-073FmxtqtogvMercy Health Fairfield HospitalCO2 [Moles/Vol]19.9 mmol/LLow21.0-32.0[facility] HospitalCreatinine [Mass/Vol]2.86 mg/dLHigh0.55-1.02[facility] HospitalGFR/1.73 sq M.predicted MDRD (S/P/Bld) [Vol rate/Area]19 mL/min/{1.73_m2}Low>=60 mL/min/1.73m 2FWVUM[facility] Community HospitalGlucose [Mass/Vol]162 mg/tPDsvl32-146NjrldlbbiMercy Health Fairfield HospitalPotassium [Moles/Vol]4.6 mmol/L3.5-5.1FWV[facility] Community HospitalProtein [Mass/Vol] 4.8 g/dLLow6.4-8.2FSalem City Hospitalodium [Moles/Vol]143 mmol/L 136-145[facility] HospitalUrea nitrogen [Mass/Vol]86.0 mg/dL Critically high7.0-18.0[facility] HospitalComment on above:RESULTS CALLED TO LOCO AU)/GUNNER SURGUrea nitrogen/Creatinine [Mass ratio]30.1 mg/mgMercy Health Fairfield HospitalLaboratory - Hematology and Cell countson 94-53-7686Zptacqyl granulocytes/100 WBC (Bld)0.2 %0.0-0.5FWVUMed[facility] Harrison Community HospitalLeukocytes [#/volume] corrected for nucleated erythrocytes in Blood by Automated counon 79-28-9540RJD corrected for nucl RBC Auto (Bld) [#/Vol]Leukocytes [#/volume] corrected for nucleated erythrocytes in Blood by Automated coun4.0-11.0[facility] HospitalLymphocytes Auto (Bld) [#/Vol]on 71-36-5397Zwkntdmaofw (Bld) [#/Vol]Lymphocytes [#/volume] in Blood by Automated countHigh1.2-3.8[facility] HospitalLymphocytes/100 WBC Auto (Bld)on 86-71-2985Zorkvwhkzut/100 WBC (Bld)Lymphocytes/100 leukocytes in Blood by Automated count20.5-60.0[facility] HospitalMCH Auto (RBC) [Entitic mass]on 53-05-2141CEB (RBC) [Entitic mass]MCH [Entitic mass] by Automated count26.7-34.0[facility] HospitalMCHC Auto (RBC) [Mass/Vol]on 51-11-6296GRUU (RBC) [Mass/Vol]MCHC [Mass/volume] by Automated count29.9-35.2FWVUM[facility] Community HospitalMCV Auto (RBC) [Entitic vol]on 43-93-4642TYG (RBC) [Entitic vol]MCV [Entitic volume] by Automated countHigh 81.0-99.0[facility] HospitalMonocytes Auto (Bld) [#/Vol]on 59-13-8615Dytrnlhsx (Bld) [#/Vol]Automated blood monocyte count0.3-0.8[facility] HospitalMonocytes/100 WBC Auto (Bld)on 55-86-4390Rinqubnsi/100 WBC (Bld)Automated monocyte %1.7-12.0[facility] Neutrophils Auto (Bld) [#/Vol]on 10-46-0024Wwgmltskpch (Bld) [#/Vol]Neutrophils [#/volume] in Blood by Automated count1.4-6.5[facility] Neutrophils/100 WBC Auto (Bld)on 71-67-6647Gsxmqsezwng/100 WBC (Bld)Automated neutrophil %Low43.0-75.0[facility] HospitalNo Panel Informationon 52-81-4942Cyqbhvnfylb # (Auto)0.0 10 3/uL0.0-0.7FWVUM[facility] Community HospitalImmature Granulocyte # (Auto)0.02 10 3/uL0.00-0.03[facility]0.0 10 3/uL0.0-0.7[facility]2.1 g/dLLow 3.4-5.0[facility]69 U/G25-080NlukgjebmMercy Health Fairfield Hospital12 U/FJpj75-80FhsabkiwrMercy Health Fairfield Hospital10 U/XRyf37-13YeolhnxuiMercy Health Fairfield Hospital0.02 10 3/uL0.00-0.03[facility] 30.1[facility]0.2 %0.0-0.5[facility]86.0 mg/dLCritically high7.0-18.0[facility]8.1 mg/dLLow8.5-10.1[facility]111 mmol/EXnyx94-557SixyxqxlrMercy Health Fairfield Hospital19.9 mmol/LLow21.0-32.0[facility] 2.86 mg/dLHigh0.55-1.02[facility]19Low>=60 mL/min/1.73m 2 [facility]162 mg/kQStzj69-235SuoolgfjeMercy Health Fairfield Hospital4.6 mmol/L3.5-5.1[facility]143 mmol/V727-385 [facility]0.3 mg/dL0.2-1.0[facility]4.8 g/dLLow6.4-8.2FW[facility]UM[facility] Community HospitalPlatelet mean volume Auto (Bld) [Entitic vol]on 13-40-5358Hffzpwwv mean volume (Bld) [Entitic vol] Platelet mean volume [Entitic volume] in Blood by Automated count9.5-13.5 [facility] HospitalPlatelets Auto (Bld) [#/Vol]on 10-11-2024 Platelets (Bld) [#/Vol]Platelets [#/volume] in Blood by Automated pooem790-204 [facility] HospitalRBC Auto (Bld) [#/Vol]on 29-54-2211XXJ (Bld) [#/Vol]Erythrocytes [#/volume] in Blood by Automated countLow4.20-5.40[facility] Hospitalerum or plasma albumin/globulin mass ratioon 10-11-2024 Albumin/Globulin [Mass ratio]Serum or plasma albumin/globulin mass ratio [facility] Hospitalerum or plasma anion gap determinationon 37-55-7083Qtocz gap [Moles/Vol]Serum or plasma anion gap determinationMercy Health Fairfield HospitalBasophils Auto (Bld) [#/Vol]on 78-83-5333Erwwnyqvg (Bld) [#/Vol]Automated basophil count0.0-0.1[facility] Basophils/100 WBC Auto (Bld)on 16-65-5982Ueucwhwgl/100 WBC (Bld)Automated basophil %0.2-2.0[facility] HospitalEosinophils/100 WBC Auto (Bld) on 50-77-0073Ybkklgslysg/100 WBC (Bld)Automated eosinophil %Low0.9-7.0[facility] CenterErythrocyte distribution width Auto (RBC) [Ratio]on 32-26-1430Rqzvznfhubv distribution width (RBC) [Ratio]Erythrocyte distribution width [Ratio] by Automated count11.0-15.0[facility] Estimated glomerular filtration rate (GFR) non- Americanon 10-10-2024 GFR/1.73 sq M.predicted among non-blacks MDRD (S/P/Bld) [Vol rate/Area]Estimated glomerular filtration rate (GFR) non- AmericanLow>=60 mL/min/1.73m 2 [facility] HospitalGlobulin Calc (S) [Mass/Vol]on 10-10-2024 Globulin (S) [Mass/Vol]Serum globulin measurement by calculation (mass/volume) [facility] HospitalHematocrit Auto (Bld) [Volume fraction]on 30-23-1891Hrvfqonvry (Bld) [Volume fraction]Hematocrit [Volume Fraction] of Blood by Automated dwzxlHpo31.0-48.0[facility] HospitalHemoglobin [Mass/volume] in Bloodon 77-16-1753Npclhttkab (Bld) [Mass/Vol]Hemoglobin [Mass/volume] in IttuqJfn67.0-16.0[facility] Hemoglobin.gastrointestinal [Presence] in Stoolon 10-10-2024 Hemoglobin.gastrointestinal Ql (Stl)Hemoglobin.gastrointestinal [Presence] in StoolAbnormLake County Memorial Hospital - WestLaboratory - Chemistry and Chemistry - challengeon 73-47-7590Orjezhd [Mass/Vol]2.4 g/dLLow3.4-5.0[facility] HospitalALP [Catalytic activity/Vol]87 U/V41-237BcaftxsxsMercy Health Fairfield HospitalALT [Catalytic activity/Vol]15 U/V11-39XqyjievgoMercy Health Fairfield HospitalAST [Catalytic activity/Vol]10 U/MGsi48-88HfcyinfayMercy Health Fairfield HospitalBilirubin [Mass/Vol]0.5 mg/dL0.2-1.0[facility] HospitalBilirubin.direct [Mass/Vol]0.1 mg/dL0.0-0.2FW[facility] HospitalCalcium [Mass/Vol]8.8 mg/dL8.5-10.1[facility] Chloride [Moles/Vol]110 mmol/IOqxr23-555NkxfcdkjaMercy Health Fairfield HospitalCO2 [Moles/Vol]19.4 mmol/LLow21.0-32.0[facility] HospitalCreatinine [Mass/Vol]2.78 mg/dLHigh0.55-1.02[facility] HospitalGFR/1.73 sq M.predicted MDRD (S/P/Bld) [Vol rate/Area]20 mL/min/{1.73_m2}Low>=60 mL/min/1.73m 2FWVUM[facility] Community HospitalGlucose [Mass/Vol]191 mg/dLHigh 74-106[facility] HospitalPotassium [Moles/Vol]5.3 mmol/LHigh 3.5-5.1FW[facility] HospitalProtein [Mass/Vol]5.8 g/dLLow6.4-8.2 [facility] Hospitalodium [Moles/Vol]141 mmol/D909-130BmurtwyyvMercy Health Fairfield HospitalUrea nitrogen [Mass/Vol]67.0 mg/dLHigh7.0-18.0[facility] HospitalUrea nitrogen/Creatinine [Mass ratio]24.1 mg/mgMercy Health Fairfield HospitalLaboratory - Hematology and Cell countson 10-10-2024 Immature granulocytes/100 WBC (Bld)0.2 %0.0-0.5[facility] Leukocytes [#/volume] corrected for nucleated erythrocytes in Blood by Automated counon 18-08-2727EOP corrected for nucl RBC Auto (Bld) [#/Vol]Leukocytes [#/volume] corrected for nucleated erythrocytes in Blood by Automated coun 4.0-11.0[facility] HospitalLymphocytes Auto (Bld) [#/Vol]on 78-80-5346Vgcmtyltfsu (Bld) [#/Vol]Lymphocytes [#/volume] in Blood by Automated count1.2-3.8[facility] HospitalLymphocytes/100 WBC Auto (Bld)on 87-79-6795Ziaogoymwbs/100 WBC (Bld)Lymphocytes/100 leukocytes in Blood by Automated count20.5-60.0[facility] HospitalMCH Auto (RBC) [Entitic mass]on 42-31-1199XCM (RBC) [Entitic mass]MCH [Entitic mass] by Automated count 26.7-34.0[facility] HospitalMCHC Auto (RBC) [Mass/Vol]on 50-93-0150JTFO (RBC) [Mass/Vol]MCHC [Mass/volume] by Automated count29.9-35.2 [facility] HospitalMCV Auto (RBC) [Entitic vol]on 74-83-6017AES (RBC) [Entitic vol]MCV [Entitic volume] by Automated bxygwYios21.0-99.0[facility] HospitalMonocytes Auto (Bld) [#/Vol]on 11-77-7550Ishkjuarl (Bld) [#/Vol]Automated blood monocyte count0.3-0.8[facility] Monocytes/100 WBC Auto (Bld)on 66-52-1669Echtpkpxz/100 WBC (Bld)Automated monocyte %1.7-12.0[facility] HospitalNeutrophils Auto (Bld) [#/Vol]on 59-82-3860Jjrqsalgwtr (Bld) [#/Vol]Neutrophils [#/volume] in Blood by Automated count1.4-6.5FWVUM[facility] HospitalNeutrophils/100 WBC Auto (Bld)on 66-61-8095Gnbjrdtwcny/100 WBC (Bld)Automated neutrophil %43.0-75.0 [facility] HospitalNo Panel Informationon 16-73-3276Owdpwnhzfak # (Auto)0.0 10 3/uL0.0-0.7FWVUMed[facility] Harrison Community HospitalImmature Granulocyte # (Auto)0.02 10 3/uL0.00-0.03[facility] HospitalTroponin I High Sensitivity4.7 pg/mL4.0-51.3FWVUMedicine Harrison Community HospitalComment on above: CUT-OFF POINTS HAVE BEEN ESTABLISHED BASED ON THE FOURTHUNIVERSAL DEFINITION OF MYOCARDIAL INFARCTION. THE UPPERREFERENCE LIMIT (URL) OF TROPONIN, DEFINED THE 99THPERCENTILE OF cTnI DISTRIBUTION IN A REFERENCE POPULATION,HAS BEEN CONFIRMED THE DECISION THRESHOLD FOR MIDIAGNOSIS.99TH PERCENTILE = 51.4 PG/MLNOTE: HIGH-SENSITIVITY TROPONIN ASSAY IS NOT INTENDED TO BEUSED IN ISOLATION BUT SHOULD BE INTERPRETED IN CONJUNCTIONWITH OTHER DIAGNOSTIC AND CLINICAL INFORMATION.4.7 pg/mL4.0-51.3FW[facility] Hospital2.4 g/dL Low3.4-5.0[facility]24.1[facility] 0.0 10 3/uL0.0-0.7[facility]87 U/L07-607DrnfentqeMercy Health Fairfield Hospital67.0 mg/dLHigh7.0-18.0[facility]15 U/V57-39NymkbaxelMercy Health Fairfield Hospital8.8 mg/dL8.5-10.1[facility]10 U/YKdj46-67JvyputxrmMercy Health Fairfield Hospital110 mmol/LHigh 98-107[facility]0.1 mg/dL0.0-0.2[facility]19.4 mmol/LLow21.0-32.0[facility]0.02 10 3/uL0.00-0.03[facility]2.78 mg/dLHigh0.55-1.02[facility]0.2 %0.0-0.5[facility]0.5 mg/dL 0.2-1.0[facility]20Low>=60 mL/min/1.73m 2[facility]5.8 g/dLLow6.4-8.2[facility]191 mg/tPTizy83-154VvxjjxeauMercy Health Fairfield Hospital5.3 mmol/LHigh3.5-5.1[facility]141 mmol/H433-246LtolxwhlcMercy Health [facility]field Hospital Platelet mean volume Auto (Bld) [Entitic vol]on 66-91-8650Xdkzcufs mean volume (Bld) [Entitic vol]Platelet mean volume [Entitic volume] in Blood by Automated count9.5-13.5FWVUMed[facility] Harrison Community HospitalPlatelets Auto (Bld) [#/Vol]on 40-36-7460Gakhcprji (Bld) [#/Vol]Platelets [#/volume] in Blood by Automated -384EriqwcilfMercy Health Fairfield HospitalRBC Auto (Bld) [#/Vol]on 10-10-2024 RBC (Bld) [#/Vol]Erythrocytes [#/volume] in Blood by Automated countLow4.20-5.40 [facility] Hospitalerum or plasma albumin/globulin mass ratioon 00-69-8902Bcaisag/Globulin [Mass ratio]Serum or plasma albumin/globulin mass ratioEast Liverpool City Hospitalerum or plasma anion gap determinationon 43-68-9547Whvdb gap [Moles/Vol]Serum or plasma anion gap determinationMercy Health Fairfield HospitalEstimated glomerular filtration rate (GFR) non- Americanon 77-35-4945ADW/1.73 sq M.predicted among non-blacks MDRD (S/P/Bld) [Vol rate/Area]Estimated glomerular filtration rate (GFR) non- Low>=60 mL/min/1.73m 2FWVUMed[facility] Community HospitalLaboratory - Chemistry and Chemistry - challengeon 75-77-1977Lxmxmzm [Mass/Vol]8.9 mg/dL8.5-10.1 [facility] HospitalChloride [Moles/Vol]108 mmol/WFrdt78-884 [facility] HospitalCO2 [Moles/Vol]25.2 mmol/L21.0-32.0[facility] HospitalCreatinine [Mass/Vol]2.73 mg/dLHigh0.55-1.02[facility] HospitalGFR/1.73 sq M.predicted MDRD (S/P/Bld) [Vol rate/Area]20 mL/min/{1.73_m2}Low>=60 mL/min/1.73m 2FW[facility] Community HospitalGlucose [Mass/Vol]183 mg/eCEqgg64-699WrdxmaccyMercy Health Fairfield HospitalPotassium [Moles/Vol]5.6 mmol/LHigh3.5-5.1FSalem City Hospitalodium [Moles/Vol]143 mmol/Y187-120KjwuwslffMercy Health Fairfield HospitalUrea nitrogen [Mass/Vol]32.0 mg/dLHigh7.0-18.0[facility] HospitalUrea nitrogen/Creatinine [Mass ratio]11.7 mg/mgMercy Health Fairfield HospitalNo Panel Informationon 20-16-780847.7FW[facility]32.0 mg/dL High7.0-18.0[facility]8.9 mg/dL8.5-10.1[facility]108 mmol/VTeew54-960PfakwvamgMercy Health Fairfield Hospital25.2 mmol/L 21.0-32.0[facility]2.73 mg/dLHigh0.55-1.02[facility]20Low>=60 mL/min/1.73m 2[facility] 183 mg/aASmoq52-174DdxzxuzrqMercy Health Fairfield Hospital5.6 mmol/LHigh3.5-5.1 [facility]143 mmol/S313-166IbwctcqgnEast Liverpool City Hospitalerum or plasma anion gap determinationon 45-53-0191Blbvj gap [Moles/Vol] Serum or plasma anion gap determinationMercy Health Fairfield HospitalBasic Metabolic Panelon 85-40-6978Pdqsuzfjoz Clr Calc Sfwaytwv03.25NoNovant Health Presbyterian Medical Center Physician GroupComment on above:Result Comment: PERFORMED BY: [facility] [address] [place] [address] PATHOLOGIST SENIOR HR MANAGER LUIS DEE M.D.Performed By: #### BMP ####[address] [place] [address] USAGFR/1.73 sq M.predicted MDRD (S/P/Bld) [Vol rate/Area]18.292 mL/min/{1.73_m2}NormalThe [facility] Physician [facility] HospitalComment on above:Performed By: #### BMP ####[address] [place] [address] USACalcium [Mass/volume] in Serum or PlasmaOrdered By: Trent Patterson on [id number] [Mass/Vol]7.6 mg/dLLow8.6-10.3FWVUMedicine Harrison Community HospitalComment on above:Performed By: #### BMP ####[address] [place] [address] USACalcium [Mass/Vol] Calcium [Mass/volume] in Serum or PlasmaLow8.6-10.3FWVUMedicine Harrison Community HospitalCapillary blood glucose measurement by glucometer (mass/volume)Ordered By: Trent Patterson on 28-13-5355Urobrue [Mass/Vol]137 mg/dLNormalMercy Health Fairfield HospitalComment on above:Random Glucose Reference Range is dependent on time and content of last meal. Glucose of more than 200 mg/dL in a nonstressed, ambulatory subject supports the diagnosis of Diabetes Mellitus.Result Comment: Random Glucose Reference Range is dependent on time and content of last meal. Glucose of more than 200 mg/dL in a nonstressed, ambulatory subject supports the diagnosis of Diabetes Mellitus. PERFORMED BY: [facility] [address] [place] [address] PATHOLOGIST SENIOR HR MANAGER LUIS DEE M.D.Performed By: #### GLULS ####Point of Care testing,Carbon dioxide, total [Moles/volume] in Serum or PlasmaOrdered By: Trent Patterson on 42-96-3482IJ8 [Moles/Vol]20.5 mmol/LLow21.0-31.0Mer[facility] Fairfield HospitalComment on above:Performed By: #### BMP ####[address] [address] USACO2 [Moles/Vol]Carbon dioxide, total [Moles/volume] in Serum or XtomwlOfd83.0-31.0[facility] Chloride [Moles/volume] in Serum or PlasmaOrdered By: Trent Patterson on 37-49-2360Pbbqkcwg [Moles/Vol]115 mmol/BFsvj95-805Phplbsnrb[address] [place], [place] [address]Comment on above:Performed By: #### BMP ####[address] [address] USAChloride [Moles/Vol]Chloride [Moles/volume] in Serum or BeskfbRcnq94-400PwuwzvkqiMercy Health Fairfield Hospital Creatinine [Mass/volume] in Serum or PlasmaOrdered By: Trent Patterson on 21-90-5016Agjmcgwmeg [Mass/Vol]2.55 mg/dLHigh0.60-1.20Mer[facility] Fairfield HospitalComment on above:Performed By: #### BMP ####[address] [place] [address] USACreatinine [Mass/Vol]Creatinine [Mass/volume] in Serum or PlasmaHigh0.60-1.20[facility] echo transthoracicon 36-67-8081NNC echo transthoracicOHIOHEALTH O'BLENESS [facility] Main [place] [address] [place] [address] Echocardiogram Signed Patient: Hailee Trivedi MR#: [id number] 306 : 1940 Acct:[id number] Age/Sex: 84 / F ADM Date: 09/18/24 Loc: Room: [address] [place] [address] Type: ADM INOo Attending Dr: Trent Patterson MD Ordering Provider: Trent Patterson MD Date of Service: 09/18/2404/06/1148 [facility] echo transthoracic: elevated BNP Copies to: MD Camilla Del Toro MD, [facility] BSA: 2.0 m2 BP: 119/73 mmHg [...] max P.8 mmHg RAP systole: 3.0 mmHg Transcribed By: PREETI Performed At: 09/19/24 1128 Signed By: Camilla Estrada MD, [facility] 09/19/24 1618NoNovant Health Presbyterian [facility] Physician GroupGlucose Glucometer (BldC) [Mass/Vol]Ordered By: Trent Patterson on 50-82-0230Myozjxn [Mass/Vol]Capillary blood glucose measurement by glucometer (mass/volume)Mer[facility] Fairfield HospitalComment on above:Random Glucose Reference Range is dependent on time and content of last meal. Glucose of more than 200 mg/dL in a nonstressed, ambulatory subject supports the diagnosis of Diabetes Mellitus.Glucose Poct Glucometerson 22-64-1688Qjbdabp [Mass/Vol]177 mg/dLEd [facility] Physician [facility] HospitalComment on above:Result Comment: Random Glucose Reference Range is dependent on time and content of last meal. Glucose of more than 200 mg/dL in a nonstressed, ambulatory subject supports the diagnosis of Diabetes Mellitus. PERFORMED BY: [facility] [address] [facility] [place] [address] PATHOLOGIST SENIOR HR MANAGER LUIS DEE M.D.Performed By: #### GLULS ####Point of Care testing,Glucose [Mass/Vol]108 mg/dLEd [facility] Physician [facility] HospitalComment on above:Result Comment: Random Glucose Reference Range is dependent on time and content of last meal. Glucose of more than 200 mg/dL in a nonstressed, ambulatory subject supports the diagnosis of Diabetes Mellitus. PERFORMED BY: [facility] [address] [facility] [place] [address] PATHOLOGIST SENIOR HR MANAGER LUIS DEE M.D.Performed By: #### GLULS ####Point of Care testing,Glucose [Mass/volume] in Serum or PlasmaOrdered By: Trent Patterson on 22-79-1011Vdfhaco [Mass/Vol]103 mg/yQAfgg41-408MvltiybdcMercy Health Fairfield HospitalComment on above: ADA recommended reference rangeRandom Glucose Reference Range is dependent on time and content of last meal. Glucose of more than 200 mg/dL in a nonstressed, ambulatory subject supports the diagnosisof Diabetes Mellitus.Result Comment: Random Glucose Reference Range is dependent on time and content of last meal. Glucose of more than 200 mg/dL in a nonstressed, ambulatory subject supports the diagnosis of Diabetes Mellitus. ADA recommended reference rangePerformed By: #### BMP ####[address] [place] [address] USAGlucose [Mass/Vol]Glucose [Mass/volume] in Serum or IgwcxtDvqc80-210WywbciblaMercy Health Fairfield Hospital Comment on above:ADA recommended reference rangeRandom Glucose Reference Range is dependent on time and content of last meal. Glucose of more than 200 mg/dL in a nonstressed, ambulatory subject supports the diagnosisof Diabetes Mellitus.No Panel InformationOrdered By: Trent Patterson on 00-25-5159Cfntktwjy GFR (CKD-EPI)18.292 mL/MinMercy Health Fairfield HospitalPharmacy Creatinine Clearance (Chem19.25Mer[facility] Fairfield HospitalPotassium [Moles/volume] in Serum or PlasmaOrdered By: Trent Patterson on 58-45-8426Pqmfjcydu [Moles/Vol]3.6 mmol/LNormal3.5-5.1FWVUMedicine Harrison Community HospitalComment on above:Performed By: #### BMP ####[address] [address] USAPotassium [Moles/Vol]Potassium [Moles/volume] in Serum or Plasma3.5-5.1 [facility] City Hospitalerum or plasma anion gap determinationOrdered By: Trent Patterson on 39-78-8522Buwxg gap [Moles/Vol]9.1 mmol/LNormal6.0-15.0 [facility]field HospitalComment on above:Performed By: #### BMP ####[address] [address] USAAnion gap [Moles/Vol]Serum or plasma anion gap determination6.0-15.0[facility] City Hospitalodium [Moles/volume] in Serum or PlasmaOrdered By: Trent Patterson on 55-22-1945Sbhmjx [Moles/Vol]141 mmol/LWhixxq661-610ApodgklkrMercy Health Fairfield HospitalComment on above:Performed By: #### BMP ####[address] [place] [address] USASodium [Moles/Vol]Sodium [Moles/volume] in Serum or Epphvr819-212EulprafvbMercy Health Fairfield HospitalUrea nitrogen [Mass/volume] in Serum or PlasmaOrdered By: Trent Patterson on 35-82-3970Izoh nitrogen [Mass/Vol]37 mg/dLMary Babb Randolph Cancer Center725Mer[facility] Health Fairfield HospitalComment on above:Performed By: #### BMP ####[place] [address] USAUrea nitrogen [Mass/Vol]Urea nitrogen [Mass/volume] in Serum or PlasmaHigh7-25[facility] Automated basophil %Ordered By: Roseline Overton on 84-31-8707Hrfzdlynd/100 WBC (Bld) 0.8 %Normal.Mer[facility] Fairfield HospitalComment on above:Performed By: #### MG, CBC, BMP ####[place] [address] USAAutomated basophil countOrdered By: Roseline Overton on 33-43-7642Dwcmppkpl (Bld) [#/Vol]0.1 10*3/uLNormal0.0-0.2FWVUMedicine Harrison Community HospitalComment on above:Result Comment: PERFORMED BY: [facility] [address] [place] [address] PATHOLOGIST SENIOR HR MANAGER LUIS DEE M.D.Performed By: #### MG, CBC, BMP ####[place] [address] USAAutomated blood monocyte countOrdered By: Roseline Overton on 41-75-9553Ojllnebaf (Bld) [#/Vol]0.9 10*3/uLHigh0.0-0.8 [facility]field HospitalComment on above:Performed By: #### MG, CBC, BMP ####[place] [address] [place] Automated eosinophil %Ordered By: Roseline Overton on 57-48-3058Abwgerimshs/100 WBC (Bld)2.3 %Normal.[facility]field HospitalComment on above:Performed By: #### MG, CBC, BMP ####[address] [address] USAAutomated eosinophil countOrdered By: Roseline Overton on 09-18-2024 Eosinophils (Bld) [#/Vol]0.2 10*3/uLNormal0.0-0.45Mer[facility] Fairfield HospitalComment on above:Performed By: #### MG, CBC, BMP ####[place] [address] USAAutomated monocyte %Ordered By: Roseline Overton on 48-74-4126Yqsabxkuh/100 WBC (Bld)8.7 %Normal.[facility] Fairfield HospitalComment on above:Performed By: #### MG, CBC, BMP ####[place] [address] [place] Automated neutrophil %Ordered By: Roseline Overton on 54-86-0659Veqvptcggco/100 WBC (Bld)81.6 %Normal.[facility] HospitalComment on above:Performed By: #### MG, CBC, BMP ####[address] USABasic Metabolic Panelon 01-96-3683Ppuos gap [Moles/Vol]11.5 mmol/LNormal6.0-15.0[facility] Physician GroupComment on above:Performed By: #### MG, CBC, BMP ####[place] [address] USACalcium [Mass/Vol]7.5 mg/dLLow8.6-10.3[facility] Physician GroupComment on above:Performed By: #### MG, CBC, BMP ####[address] [place] Chloride [Moles/Vol]112 mmol/VJjew71-973Xgu [facility] Physician GroupComment on above:Performed By: #### MG, CBC, BMP ####[address] USACO2 [Moles/Vol]17.4 mmol/LLow21.0-31.0[facility] Physician GroupComment on above:Performed By: #### MG, CBC, BMP ####[address] [place] [address] [facility] Creatinine [Mass/Vol]2.58 mg/dLHigh0.60-1.20[facility] Physician GroupComment on above:Performed By: #### MG, CBC, BMP ####[address] [place] [address] USACreatinine Clr Calc Bgiwqlfh64.85NormalThe [facility] Hospital Physician GroupComment on above:Performed By: #### MG, CBC, BMP ####[address] [place] [address] [place] GFR/1.73 sq M.predicted MDRD (S/P/Bld) [Vol rate/Area]18.037 mL/min/{1.73_m2} NormalThe [facility] Memorial Hospital Physician GroupComment on above:Performed By: #### MG, CBC, BMP ####[address] Glucose [Mass/Vol]112 mg/oAUske06-111Tdd [facility] Physician GroupComment on above:Result Comment: Random Glucose Reference Range is dependent on time and content of last meal. Glucose of more than 200 mg/dL in a nonstressed, ambulatory subject supports the diagnosis of Diabetes Mellitus. ADA recommended reference rangePerformed By: #### MG, CBC, BMP ####[place] [address] USAPotassium [Moles/Vol] 3.9 mmol/LNormal3.5-5.1[facility] Physician GroupComment on above:Performed By: #### MG, CBC, BMP ####[place] [address] USASodium [Moles/Vol]137 mmol/SOvuknw889-789Vyg [facility] Physician GroupComment on above:Performed By: #### MG, CBC, BMP ####[facility] USAUrea nitrogen [Mass/Vol]40 mg/dLHigh7-25[facility] Physician GroupComment on above:Performed By: #### MG, CBC, BMP ####[facility] [address] USABasophils Auto (Bld) [#/Vol]Ordered By: Roseline Overton on 83-81-8826Onhvoieco (Bld) [#/Vol]Automated basophil count0.0-0.2 [facility] HospitalBasophils/100 WBC Auto (Bld)Ordered By: Roseline Overton on 97-03-5450Bszlkrwkk/100 WBC (Bld)Automated basophil %.[facility] HospitalComplete Blood Count Auto Diffon 51-68-4725Zbzd Corpuscular HGB Conc33.8 g/wJBmsbes86.0-35.0[facility] Physician GroupComment on above:Performed By: #### MG, CBC, BMP ####[facility] [address] USANRBC%0.0 /100{WBC}Normal0-0.5The [facility] Physician GroupComment on above:Performed By: #### MG, CBC, BMP ####[facility] [address] USAECG 12 lead ECGon 32-21-4616NEV 12 lead ECGOHIOHEALTH O'BLENESS [place] [address] Electrocardiograph Report Signed Patient: Hailee Trivedi MR#: [id number] 306 : 1940 Acct:[id number] Age/Sex: 84 / F ADM Date: 09/18/24 Loc: Room: [address] [place] [address] Type: ADM INOo Attending Dr: Trent Patterson [...] was found Confirmed by NATALIE VELAZQUEZ [facility], [place] ([id number]) on 09/19/2024 2:53:36 PM Referred By: Electronically Signed By: CAMILLA ESTRADA MD [facility] Transcribed By: MUS Signed By Camilla Estrada MD, [facility] 09/19/24 1453Ed [facility] Physician GroupEosinophils Auto (Bld) [#/Vol] Ordered By: Roseline Overton on 80-89-0702Qbixlratlpz (Bld) [#/Vol]Automated eosinophil count0.0-0.45Mer[facility] HospitalEosinophils/100 WBC Auto (Bld)Ordered By: Roseline Overton on 84-10-0875Uaxvbnkjrjr/100 WBC (Bld) Automated eosinophil %.[facility] HospitalErythrocyte distribution width Auto (RBC) [Ratio]Ordered By: Roseline Overton on 71-24-2068Jqqfrfkvgrv distribution width (RBC) [Ratio]Erythrocyte distribution width [Ratio] by Automated count11.9-15.3FWVUMedicine Harrison Community HospitalErythrocyte distribution width [Ratio] by Automated countOrdered By: Roseline Overton on 37-96-8607Wppcuqwnhxy distribution width (RBC) [Ratio]14.1 %Enbdcw68.9-15.3 [facility] HospitalComment on above:Performed By: #### MG, CBC, BMP ####[facility] [address] [place] [address] [place] Erythrocytes [#/volume] in Blood by Automated countOrdered By: Roseline Overton on 45-42-0817BJK (Bld) [#/Vol]3.72 10*6/uLNormal3.60-5.00[facility] HospitalComment on above:Performed By: #### MG, CBC, BMP ####[facility] [address] [place] [address] USAGlucose Poct Glucometerson 07-26-3126Nutchdo [Mass/Vol]177 mg/dLNoNovant Health Presbyterian Medical Center Physician GroupComment on above:Result Comment: Random Glucose Reference Range is dependent on time and content of last meal. Glucose of more than 200 mg/dL in a nonstressed, ambulatory subject supports the diagnosis of Diabetes Mellitus. PERFORMED BY: [place] [address] PATHOLOGIST SENIOR HR MANAGER LUIS DEE M.D.Performed By: #### GLULS ####Point of Care testing,Rsfywrm0Pvu3: Cleaned MeterEd [facility] Physician GroupComment on above:Result Comment: PERFORMED BY: [place] [address] PATHOLOGIST SENIOR HR MANAGER LUIS DEE M.D.Performed By: #### GLULS ####Point of Care testing,Glucose [Mass/Vol]158 mg/dLEd [facility] Physician GroupComment on above:Result Comment: Random Glucose Reference Range is dependent on time and content of last meal. Glucose of more than 200 mg/dL in a nonstressed, ambulatory subject supports the diagnosis of Diabetes Mellitus.Performed By: #### GLULS ####Point of Care testing,Commemt1 Glu2: Cleaned MeterEd [facility] Physician GroupComment on above:Result Comment: PERFORMED BY: [place] [phone] PATHOLOGIST SENIOR HR MANAGER LUIS DEE M.D.Performed By: #### LACTIC #### [facility] [address] [place] [address] USAGlucose [Mass/Vol]145 mg/dLEd [facility] Physician GroupComment on above:Result Comment: Random Glucose Reference Range is dependent on time and content of last meal. Glucose of more than 200 mg/dL in a nonstressed, ambulatory subject supports the diagnosis of Diabetes Mellitus.Performed By: #### LACTIC #### [facility] [address] [place] [address] ILHRlyhexx1Qfn8: Cleaned MeterEd [facility] Physician GroupComment on above:Result Comment: PERFORMED BY: [place] [address] PATHOLOGIST SENIOR HR MANAGER LUIS DEE M.D.Performed By: #### GLULS ####Point of Care testing,Glucose [Mass/Vol]177 mg/dLNoNovant Health Presbyterian Medical Center Physician GroupComment on above:Result Comment: Random Glucose Reference Range is dependent on time and content of last meal. Glucose of more than 200 mg/dL in a nonstressed, ambulatory subject supports the diagnosis of Diabetes Mellitus.Performed By: #### GLULS ####Point of Care testing,Glucose [Mass/Vol]111 mg/dLNoNovant Health Presbyterian Medical Center Physician GroupComment on above:Result Comment: Random Glucose Reference Range is dependent on time and content of last meal. Glucose of more than 200 mg/dL in a nonstressed, ambulatory subject supports the diagnosis of Diabetes Mellitus. PERFORMED BY: [address] [place] [address] PATHOLOGIST SENIOR HR MANAGER LUIS DEE M.D.Performed By: #### GLULS #### Point of Care testing ,Hematocrit Auto (Bld) [Volume fraction]Ordered By: Roseline Overton on 09-18-2024 Hematocrit (Bld) [Volume fraction]Hematocrit [Volume Fraction] of Blood by Automated count34.0-46.4FWVUMedicine Harrison Community HospitalHematocrit [Volume Fraction] of Blood by Automated countOrdered By: Roseline Overton on 09-18-2024 Hematocrit (Bld) [Volume fraction]35.5 %Pxjiwo88.0-46.4FWVUMedicine Harrison Community HospitalComment on above:Performed By: #### MG, CBC, BMP ####[facility] [place] [address] USAHemoglobin [Mass/volume] in BloodOrdered By: Roseline Overton on 81-31-7386Kbiykectqf (Bld) [Mass/Vol]12.0 g/nZVihrqw16.8-15.4FWVUMedicine Harrison Community HospitalComment on above:Performed By: #### MG, CBC, BMP ####[facility] [place] [address] USAHemoglobin (Bld) [Mass/Vol]Hemoglobin [Mass/volume] in Blood11.8-15.4FWVUMedicine Harrison Community HospitalLeukocytes [#/volume] corrected for nucleated erythrocytes in Blood by Automated coun Ordered By: Roseline Overton on 29-25-9758DWH corrected for nucl RBC Auto (Bld) [#/Vol]9.8 10*3/uL3.8-11.6FWVUMedicine Harrison Community HospitalWBC corrected for nucl RBC Auto (Bld) [#/Vol]Leukocytes [#/volume] corrected for nucleated erythrocytes in Blood by Automated coun3.8-11.6FWVUMedicine [facility] Hospital Leukocytes [#/volume] in Blood by Automated countOrdered By: Roseline Overton on 58-96-7570TOO (Bld) [#/Vol]9.8 10*3/uLNormal3.8-11.6FWVUMedicine Harrison Community HospitalComment on above:Performed By: #### MG, CBC, BMP ####[facility] [address] [place] [address] USALymphocytes Auto (Bld) [#/Vol] Ordered By: Roseline Overton on 54-61-7972Nqodaiegwbq (Bld) [#/Vol]Lymphocytes [#/volume] in Blood by Automated countLow1.00-4.8Mer[facility] HospitalLymphocytes [#/volume] in Blood by Automated countOrdered By: Roseline Overton on 92-74-5854Myruzfvvnnw (Bld) [#/Vol]0.7 10*3/uLLow1.00-4.8Mer[facility] HospitalComment on above:Performed By: #### MG, CBC, BMP ####[facility] [address] [place], [place] [address] USALymphocytes/100 WBC Auto (Bld)Ordered By: Roseline Overton on 47-87-1600Fabjjziedhd/100 WBC (Bld) Lymphocytes/100 leukocytes in Blood by Automated count.[facility] HospitalLymphocytes/100 leukocytes in Blood by Automated countOrdered By: Roseline Overton on 90-18-1261Kualgyhwabh/100 WBC (Bld)6.6 %Normal.[facility] HospitalComment on above:Performed By: #### MG, CBC, BMP ####[facility] [address] [place] [address] [facility] Auto (RBC) [Entitic mass]Ordered By: Roseline Overton on 62-04-2440GYW (RBC) [Entitic mass]MCH [Entitic mass] by Automated count24.7-34.3FSelect Medical TriHealth Rehabilitation Hospital [Entitic mass] by Automated countOrdered By: Roseline Overton on 28-35-8979VUP (RBC) [Entitic mass]32.3 uaZhxhdk82.7-34.3FWVUMedicine Harrison Community HospitalComment on above:Performed By: #### MG, CBC, BMP ####[facility] [address] [place] [address] [facility] Auto (RBC) [Mass/Vol]Ordered By: Roseline Overton on 16-99-9524ULHE (RBC) [Mass/Vol]33.8 g/dL32.0-35.0[facility] (RBC) [Mass/Vol]MCHC [Mass/volume] by Automated count 32.0-35.0[facility] Auto (RBC) [Entitic vol]Ordered By: Roseline Overton on 49-38-9274PQZ (RBC) [Entitic vol]MCV [Entitic volume] by Automated dkjiv68-430JsdpcdmtyLake County Memorial Hospital [facility] [Entitic volume] by Automated countOrdered By: Roseline Overton on 13-91-5797SMV (RBC) [Entitic vol]95.4 dGEcafyo66-696QzczokqseMercy Health Fairfield HospitalComment on above:Performed By: #### MG, CBC, BMP ####[facility] [address] [place] [address] USAMagnesium [Mass/volume] in Serum or PlasmaOrdered By: Roseline Overton on 94-26-4279Czgljgrqm [Mass/Vol]1.7 mg/dLLow1.9-2.7FWVUMedicine Harrison Community HospitalComment on above:Result Comment: PERFORMED BY: [facility] [address] [place] [id number] PATHOLOGIST SENIOR HR MANAGER LUIS DEE M.D.Performed By: #### MG, CBC, BMP ####[facility] [address] [place] [address] USAMagnesium [Mass/Vol]Magnesium [Mass/volume] in Serum or PlasmaLow1.9-2.7FWVUMedicine [facility] Hospital Monocytes Auto (Bld) [#/Vol]Ordered By: Roseline Overton on 24-61-8601Cehnozaun (Bld) [#/Vol]Automated blood monocyte countHigh0.0-0.8Mer[facility] HospitalMonocytes/100 WBC Auto (Bld)Ordered By: Roseline Overton on 09-18-2024 Monocytes/100 WBC (Bld)Automated monocyte %.[facility] Neutrophils Auto (Bld) [#/Vol]Ordered By: Roseline Overton on 03-68-7790Khohzuncjxi (Bld) [#/Vol]Neutrophils [#/volume] in Blood by Automated countHigh1.8-7.7 [facility] HospitalNeutrophils [#/volume] in Blood by Automated countOrdered By: Roseline Overton on 30-36-5494Grtidbsmdhc (Bld) [#/Vol]8.0 10*3/uL High1.8-7.7FWVUMedicine Harrison Community HospitalComment on above:Performed By: #### MG, CBC, BMP ####[facility] [address] [place] [address] USANeutrophils/100 WBC Auto (Bld)Ordered By: Roseline Overton on 09-18-2024 Neutrophils/100 WBC (Bld)Automated neutrophil %.[facility] HospitalNo Panel InformationOrdered By: Trent Patterson on 99-03-0657Ltcujmn Glucose CommentGlu2: cleaned [facility]itan HospitalNucleated erythrocytes [Presence] in Blood by Automated countOrdered By: Roseline Overton on 42-46-3605Jgvusqyhm RBC Auto Ql (Bld)0.0 /100{WBC}0-0.5FWVUMedicine Harrison Community HospitalNucleated RBC Auto Ql (Bld)Nucleated erythrocytes [Presence] in Blood by Automated count0-0.5FWVUMedicine Harrison Community HospitalPlatelet mean volume Auto (Bld) [Entitic vol]Ordered By: Roseline Overton on 11-99-9874Bthtvdsq mean volume (Bld) [Entitic vol]Platelet mean volume [Entitic volume] in Blood by Automated count6.3-10.7FWVUMedicine Harrison Community HospitalPlatelet mean volume [Entitic volume] in Blood by Automated countOrdered By: Roseline Overton on 93-17-0183Vzjrdpzn mean volume (Bld) [Entitic vol]10.2 fLNormal6.3-10.7FWVUMedicine Harrison Community HospitalComment on above:Performed By: #### MG, CBC, BMP ####[address] [address] [place] Platelets Auto (Bld) [#/Vol]Ordered By: Roseline Overton on 12-96-2680Jrnskezix (Bld) [#/Vol]Platelets [#/volume] in Blood by Automated tlfloNpg719-491XegapebpiMercy Health Fairfield HospitalPlatelets [#/volume] in Blood by Automated countOrdered By: Roseline Overton on 42-77-5286Xuzuvfdel (Bld) [#/Vol]137 10*3/nAYds501-037 [facility] HospitalComment on above:Performed By: #### MG, CBC, BMP ####[place] [id number] USARBC Auto (Bld) [#/Vol]Ordered By: Roseline Overton on 17-71-9742LOT (Bld) [#/Vol] Erythrocytes [#/volume] in Blood by Automated count3.60-5.00[facility] HospitalTroponin I High Sensitivityon 55-12-3316Vohlmwyu I High Fofxeascdpd59.2 pg/mLHigh0.0-15.0[facility] Physician GroupComment on above: Result Comment: PERFORMED BY: [facility] [address] [place] [address] PATHOLOGIST SENIOR HR MANAGER LUIS DEE M.D.Performed By: #### HS TROP ####[place] [id number] USATroponin I High Sensitivity9.1 pg/mL Normal0.0-15.0[facility] Physician GroupComment on above:Result Comment: PERFORMED BY: [facility] [address] [facility] [address] PATHOLOGIST SENIOR HR MANAGER LUIS DEE M.D.Performed By: #### HS TROP ####[facility] [address] [place] [address] USATroponin I.cardiac [Mass/volume] in Serum or Plasma by Detection limit <= 0.01 ng/Ordered By: Roseline Overton on 78-06-4333Ydbllghp I.cardiac DL <= 0.01 ng/mL [Mass/Vol]21.2 pg/mLHigh0.0-15.0 [facility] HospitalTroponin I.cardiac DL <= 0.01 ng/mL [Mass/Vol] Troponin I.cardiac [Mass/volume] in Serum or Plasma by Detection limit <= 0.01 ng/High0.0-15.0[facility] HospitalWBC Auto (Bld) [#/Vol]Ordered By: Roseline Overton on 10-51-1668EZC (Bld) [#/Vol]Leukocytes [#/volume] in Blood by Automated count3.8-11.6FWVUMedicine Harrison Community HospitalActivated partial thromboplastin time (aPTT) in platelet poor plasma by coagulation aOrdered By: Jesse Valdez on 63-23-0703aVCI Coag (PPP) [Time]30.4 s25.1-36.5FWVUMedicine Harrison Community HospitalComment on above:A hematocrit value greater than 55% may lead to inaccurate results in coagulation testing. Patientshaving hematocrit values >55% require a special collection tube for coagulation studies. Please c ontact the laboratory at [phone] for redraw instructions.Alanine aminotransferase [Enzymatic activity/volume] in Serum or PlasmaOrdered By: Jesse Valdez on 96-83-5592IFJ [Catalytic activity/Vol]15 U/LNormal [facility] HospitalComment on above:Performed By: #### CMP, HS TROP, PTT, CK, BNP, PT, MG, TSH3, SCAN CBC ####[facility] [address] [place] [address] USAALT [Catalytic activity/Vol]Alanine aminotransferase [Enzymatic activity/volume] in Serum or PlasmaMercy Health Fairfield HospitalAlbumin [Mass/volume] in Serum or Plasma by Bromocresol green (BCG) dye binding methoOrdered By: Jesse Valdez on 40-78-1231Pogdcey BCG dye [Mass/Vol]2.7 g/dLLow3.5-5.7FWVUMedicine Harrison Community HospitalAlbumin BCG dye [Mass/Vol]Albumin [Mass/volume] in Serum or Plasma by Bromocresol green (BCG) dye binding methoLow3.5-5.7FWVUMedicine Harrison Community HospitalAlkaline phosphatase [Enzymatic activity/volume] in Serum or PlasmaOrdered By: Jesse Valdez on 16-34-2986PZB [Catalytic activity/Vol]64 U/HNzohqw17-867Jkwufbvdb72 Wyatt StreetComment on above:Performed By: #### CMP, HS TROP, PTT, CK, BNP, PT, MG, TSH3, SCAN CBC ####[address] [address] USAALP [Catalytic activity/Vol]Alkaline phosphatase [Enzymatic activity/volume] in Serum or Ymuohv41-503PbycxbvqbMercy Health Fairfield HospitalAppearance of UrineOrdered By: Jesse Valdez on 07-22-3130Tvadrdwyqz (U)Urine appearanceCleRegency Hospital ToledoAspartate aminotransferase [Enzymatic activity/volume] in Serum or PlasmaOrdered By: Jesse Valdez on 73-26-1107PIX [Catalytic activity/Vol]14 U/GUnxtow08-28 [facility] HospitalComment on above:Performed By: #### CMP, HS TROP, PTT, CK, BNP, PT, MG, TSH3, SCAN CBC ####[address] [address] USAAST [Catalytic activity/Vol]Aspartate aminotransferase [Enzymatic activity/volume] in Serum or Qtvqkt30-73RwataqoqqMercy Health Fairfield HospitalAutomated basophil %Ordered By: Jesse Valdez on 16-23-9934Vluavyogf/100 WBC (Bld)0.3 %Normal.[facility] Comment on above:Performed By: #### CMP, HS TROP, PTT, CK, BNP, PT, MG, TSH3, SCAN CBC ####[address] [address] USAAutomated basophil countOrdered By: Jesse Valdez on 71-16-7735Xhgqgvbak (Bld) [#/Vol]0.0 10*3/uLNormal0.0-0.2FWVUMedicine Harrison Community HospitalComment on above:Performed By: #### CMP, HS TROP, PTT, CK, BNP, PT, MG, TSH3, SCAN CBC ####[address] Automated blood monocyte countOrdered By: Jesse Valdez on 09-17-2024 Monocytes (Bld) [#/Vol]0.6 10*3/uLNormal0.0-0.8[facility] Comment on above:Performed By: #### CMP, HS TROP, PTT, CK, BNP, PT, MG, TSH3, SCAN CBC ####[place] [address] USAAutomated eosinophil %Ordered By: Jesse Valdez on 09-17-2024 Eosinophils/100 WBC (Bld)2.1 %Normal.[facility] HospitalComment on above:Performed By: #### CMP, HS TROP, PTT, CK, BNP, PT, MG, TSH3, SCAN CBC ####[address] Automated eosinophil countOrdered By: Jesse Valdez on 67-29-6151Dfhghsfkkok (Bld) [#/Vol]0.3 10*3/uLNormal0.0-0.45[facility] HospitalComment on above:Performed By: #### CMP, HS TROP, PTT, CK, BNP, PT, MG, TSH3, SCAN CBC ####[place] [id number] [place] Automated monocyte %Ordered By: Jesse Valdez on 48-57-4397Zsomsxtma/100 WBC (Bld)4.9 %Normal.[facility] HospitalComment on above:Performed By: #### CMP, HS TROP, PTT, CK, BNP, PT, MG, TSH3, SCAN CBC ####[place] [address] USAAutomated neutrophil %Ordered By: Jesse Valdez on 72-81-5609Usjxtlzckqy/100 WBC (Bld)87.9 % Normal.[facility] HospitalComment on above:Performed By: #### CMP, HS TROP, PTT, CK, BNP, PT, MG, TSH3, SCAN CBC ####[facility] [place] [address] USABNP ser/plasOrdered By: Jesse Valdez on 29-49-2727Aikskrcxvow peptide B (Bld) [Mass/Vol]660.0 pg/mLHigh5-100 [facility] HospitalComment on above:Result Comment: PERFORMED BY: [facility] [address] [place] [address] PATHOLOGIST SENIOR HR MANAGER LUIS DEE M.D.Performed By: #### CMP, HS TROP, PTT, CK, BNP, PT, MG, TSH3, SCAN CBC ####[place] [address] [place] [address] USABacteria [Presence] in Urine by AutomatedOrdered By: Jesse Valdez on 98-21-9895Wdsrhgby Auto Ql (U)None seen [HPF]None SeenMercy Health Fairfield HospitalBacteria Auto Ql (U)Bacteria [Presence] in Urine by AutomatedNone Seen [facility] HospitalBilirubin Test strip Ql (U)Ordered By: Jesse Valdez on 35-06-3267Oqvfdifti Ql (U)NegativeNegativeMercy Health Fairfield HospitalBilirubin Ql (U)Bilirubin.total [Presence] in Urine by Test stripNegativeMercy Health Fairfield HospitalBilirubin.total [Mass/volume] in Serum or PlasmaOrdered By: Jesse Valdez on 82-23-1965Wkwmehfkg [Mass/Vol]0.4 mg/dLNormal0.3-1.0[facility] HospitalComment on above:Performed By: #### CMP, HS TROP, PTT, CK, BNP, PT, MG, TSH3, SCAN CBC ####[place] [address] [place] [address] [place] Bilirubin [Mass/Vol]Bilirubin.total [Mass/volume] in Serum or Plasma0.3-1.0 [facility] HospitalCT head/brain wo conon 55-13-4513WR head/brain wo [facility] [place] [address] [place] [address] CT Scan Report Signed Patient: Hailee Trivedi MR#: [id number] 306 : 1940 Acct:[id number] Age/Sex: 84 / F ADM Date: 09/17/24 Loc: ER Room: Type: [facility] ER Attending Dr: Copies to: [...] Armando Huynh M.D.09/17/2024 10:40 PM Dictation Location: [place] [address] Transcribed By: [facility] 09/17/24 4654 Dictated By: Armando Huynh II, MD 09/17/242232 Signed By: 09/17/24 224Ed [facility] Physician GroupCalcium [Mass/volume] in Serum or PlasmaOrdered By: Jesse Valdez on 44-88-7656Widxurq [Mass/Vol]7.7 mg/dL Low8.6-10.3FWVUMedicine Harrison Community HospitalComment on above:Performed By: #### CMP, HS TROP, PTT, CK, BNP, PT, MG, TSH3, SCAN CBC ####[place] [address] [place] [address] USACapillary blood glucose measurement by glucometer (mass/volume)Ordered By: Jesse Valdez on 78-94-5113Asbdtbz [Mass/Vol]138 mg/dLNoACMC Healthcare System Comment on above:Random Glucose Reference Range is dependent on time and content of last meal. Glucose of more than 200 mg/dL in a nonstressed, ambulatory subject supports the diagnosis of Diabetes Mellitus.Result Comment: Random Glucose Reference Range is dependent on time and content of last meal. Glucose of more than 200 mg/dL in a nonstressed, ambulatory subject supports the diagnosis of Diabetes Mellitus.Performed By: #### GLULS #### Point of Care testing ,Carbon dioxide, total [Moles/volume] in Serum or PlasmaOrdered By: Jesse Valdez on 47-15-1856TC8 [Moles/Vol]17.5 mmol/LLow21.0-31.0[facility] HospitalComment on above:Performed By: #### CMP, HS TROP, PTT, CK, BNP, PT, MG, TSH3, SCAN CBC ####[address] [address] USAChloride [Moles/volume] in Serum or PlasmaOrdered By: Jesse Valdez on 66-60-2827Xhavixlw [Moles/Vol]112 mmol/JBabv06-044 [facility] HospitalComment on above:Performed By: #### CMP, HS TROP, PTT, CK, BNP, PT, MG, TSH3, SCAN CBC ####[place] [address] [place] [address] USAColor Auto (U)Ordered By: Jesse Valdez on 62-87-1795Lgnhs (U)Color of Urine by AutoYellowMercy Health Fairfield HospitalColor of Urine by AutoOrdered By: Jesse Valdez on 09-17-2024 Color (U)YellowNormalYellowMercy Health Fairfield HospitalComment on above: Order Comment: Name Collection Type:: Clean-Voided MidstreamPerformed By: #### ADDONUAPLUS ####[address] [address] USAComprehensive Metabolic Panelon 20-67-1631Rqehumq [Mass/Vol]2.7 g/dLLow 3.5-5.7[facility] Physician GroupComment on above:Performed By: #### CMP, HS TROP, PTT, CK, BNP, PT, MG, TSH3, SCAN CBC ####[address] [address] USACreatinine Clr Calc Zqktnecx63.35 NormalThe Person Memorial Hospital Physician GroupComment on above:Performed By: #### CMP, HS TROP, PTT, CK, BNP, PT, MG, TSH3, SCAN CBC ####[address] [address] USAGFR/1.73 sq M.predicted MDRD (S/P/Bld) [Vol rate/Area]17.388 mL/min/{1.73_m2}NormalThe [facility] Hospital Physician Group Comment on above:Performed By: #### CMP, HS TROP, PTT, CK, BNP, PT, MG, TSH3, SCAN CBC ####[address] [address] USACreatine kinase [Enzymatic activity/volume] in Serum or PlasmaOrdered By: Jesse Valdez on 52-84-1367QI [Catalytic activity/Vol]25 U/VGri01-490 [facility] HospitalComment on above:Performed By: #### CMP, HS TROP, PTT, CK, BNP, PT, MG, TSH3, SCAN CBC ####[address] [address] USACK [Catalytic activity/Vol]Creatine kinase [Enzymatic activity/volume] in Serum or ValfxwHes06-040KvduonjiiMercy Health Fairfield HospitalCreatinine [Mass/volume] in Serum or PlasmaOrdered By: Jesse Valdez on 22-58-1882Usnsuzejyy [Mass/Vol]2.66 mg/dLHigh0.60-1.20[facility] HospitalComment on above:Performed By: #### CMP, HS TROP, PTT, CK, BNP, PT, MG, TSH3, SCAN CBC ####[place] [address] [place] [address] USADipstick and Microscopicon 00-48-2484Atklqzup,Urine None SeenNormalNone SeenThe [facility] Hospital Physician GroupComment on above:Order Comment: Name Collection Type:: Clean-Voided MidstreamPerformed By: #### ADDONUAPLUS ####[address] [address] USABilirubin,UrineNegativeNormalNegativeThe [facility] Comment on above:Order Comment: Name Collection Type:: Clean-Voided Midstream Performed By: #### ADDONUAPLUS ####[address] [address] USAGlucose Ql (U)NormalNormalNormalThe [facility] Physician GroupComment on above:Order Comment: Name Collection Type:: Clean- Voided MidstreamPerformed By: #### ADDONUAPLUS ####[address] [address] USAHyaline Casts,UrineNoneNormal0-8The [facility] Physician GroupComment on above:Order Comment: Name Collection Type:: Clean-Voided MidstreamPerformed By: #### ADDONUAPLUS ####[address] [address] USAMucus,UrineRareNormalThe [facility] Physician GroupComment on above:Order Comment: Name Collection Type:: Clean-Voided MidstreamResult Comment: PERFORMED BY: [facility] [address] [place] [address] PATHOLOGIST SENIOR HR MANAGER LUIS DEE M.D.Performed By: #### ADDONUAPLUS ####[address] [place] [address] USANitrite,UrineNegativeNormalNegativeThe [facility] Hospital Physician GroupComment on above:Order Comment: Name Collection Type:: Clean-Voided MidstreamPerformed By: #### ADDONUAPLUS ####[address] [address] USAOccult Blood,UrineNegative NormalNegativeThe [facility] Hospital Physician GroupComment on above:Order Comment: Name Collection Type:: Clean-Voided MidstreamResult Comment: PERFORMED BY: [facility] [address] [place] [place] [address] PATHOLOGIST SENIOR HR MANAGER LUIS DEE M.D.Performed By: #### ADDONUAPLUS ####[address] [address] USARBC,Gaeop9-1Anyitj9-8Pxc [facility] Physician GroupComment on above:Order Comment: Name Collection Type:: Clean- Voided MidstreamPerformed By: #### ADDONUAPLUS ####[address] [address] USASpecificy [place],Urine1.023Normal 1.001-1.030The [facility] Physician GroupComment on above:Order Comment: Name Collection Type:: Clean-Voided MidstreamPerformed By: #### ADDONUAPLUS ####[address] [address] [place] Squamous Epithelial Cell,Czeip8-8Dyhpgi0-3Mdx [facility] Physician GroupComment on above:Order Comment: Name Collection Type:: Clean-Voided MidstreamPerformed By: #### ADDONUAPLUS ####[address] [address] USAUrobilinogen,UrineNormalNormalNormalThe [facility] Physician GroupComment on above:Order Comment: Name Collection Type:: Clean- Voided MidstreamPerformed By: #### ADDONUAPLUS ####[address] [address] USAWBC CLUMP, UrineOccasionalHighNone SeenThe Person Memorial Hospital Physician GroupComment on above:Order Comment: Name Collection Type:: Clean-Voided MidstreamPerformed By: #### ADDONUAPLUS ####[facility] [place] [address] USAWBC,Niqyb6-8Othagd7-4 [facility] Physician GroupComment on above:Order Comment: Name Collection Type:: Clean-Voided MidstreamPerformed By: #### ADDONUAPLUS ####[place] [address] [place] [address] USAECG 12 lead ECGon 95-76-9447RVW 12 lead ECGOHIOHEALTH O'BLEN[facility] Main [place] [id number] Electrocardiograph Report Signed Patient: Hailee Trivedi MR#: [id number] 306 : 1940 Acct:[id number] Age/Sex: 84 / F ADM Date: 09/18/24 Loc: Room: [address] [place] [address] Type: ADM INOo Attending Dr: Trent Patterson [...] ventricular response Confirmed by Jesse VALDEZ DO ([id number]) on 09/18/2024 11:57:16 PM Referred By: Electronically Signed By: Jesse VALDEZ DO Transcribed By: MUS Signed By Jesse Valdez DO 1 11/18/23 2357[facility] Physician GroupECG 12 lead ECGOHIOHEALTH O'BLENESS [facility] Main [address] [address] Electrocardiograph Report Signed Patient: Hailee Trivedi MR#: [id number] 306 : 1940 Acct:[id number] Age/Sex: 84 / F ADM Date: 09/17/24 Loc: ER Room: Type: REG ER Attending Dr: Ordering Provider: Jesse Valdez [...] Atrial fibrillation Confirmed by Jesse VALDEZ DO ([id number]) on 09/18/2024 12:49:30 AM Referred By: Electronically Signed By: Jesse VALDEZ DO Transcribed By: MUS Signed By Jesse Valdez DO 1 11/18/23 0049[facility] Physician GroupEpithelial cells.squamous [#/area] in Urine sediment by Automated countOrdered By: Jesse Valdez on 45-61-2550Buxqbnmkzj cells.squamous Auto (Urine sed) [#/Area]1-2 [HPF]0-2 [facility] HospitalEpithelial cells.squamous Auto (Urine sed) [#/Area]Epithelial cells.squamous [#/area] in Urine sediment by Automated count 0-2FWVUMedicine Harrison Community HospitalErythrocyte distribution width [Ratio] by Automated countOrdered By: Jesse Valdez on 82-60-2466Geiiflobmqc distribution width (RBC) [Ratio]14.3 %Jlkqoj20.9-15.3FWVUMedicine Harrison Community HospitalComment on above:Performed By: #### CMP, HS TROP, PTT, CK, BNP, PT, MG, TSH3, SCAN CBC ####[facility] [address] [place] [address] [facility]ICAL CENTERErythrocyte morphology finding [Identifier] in BloodOrdered By: Jesse Valdez on 66-70-8187DFR morphology finding Nom (Bld)RBC morphology NormalMercy Health Fairfield HospitalErythrocytes [#/area] in Urine sediment by Automated countOrdered By: Jesse Valdez on 12-48-7006KOD Auto (Urine sed) [#/Area]1-2 [HPF]0-4FWVUMedicine Harrison Community HospitalRBC Auto (Urine sed) [#/Area]Erythrocytes [#/area] in Urine sediment by Automated count0-4FWVUMedicine Harrison Community HospitalErythrocytes [#/volume] in Blood by Automated count Ordered By: Jesse Valdez on 50-19-0755RUS (Bld) [#/Vol]3.77 10*6/uLNormal 3.60-5.00[facility] HospitalComment on above:Performed By: #### CMP, HS TROP, PTT, CK, BNP, PT, MG, TSH3, SCAN CBC ####[facility] [place] [address] USAGlobulin Calc (S) [Mass/Vol] Ordered By: Jesse Valdez on 71-81-8648Gzfaqrho (S) [Mass/Vol]Serum globulin measurement by calculation (mass/volume)[facility] Glucose Poct Glucometerson 92-88-2077Wijexpv7Aef4: Cleaned MeterNoNovant Health Presbyterian Medical Center Physician GroupComment on above:Result Comment: PERFORMED BY: [facility] [address] [place] [address] PATHOLOGIST SENIOR HR MANAGER LUIS DEE M.D.Performed By: #### GLULS #### Point of Care testing ,Glucose [Mass/volume] in Serum or PlasmaOrdered By: Jesse Valdez on 99-55-4149Lfsxrho [Mass/Vol]141 mg/xZKlse36-985HzuxkftbqMercy Health Fairfield Hospital Comment on above:ADA recommended reference rangeRandom Glucose Reference Range is dependent on time and content of last meal. Glucose of more than 200 mg/dL in a nonstressed, ambulatory subject supports the diagnosisof Diabetes Mellitus. Result Comment: Random Glucose Reference Range is dependent on time and content of last meal. Glucose of more than 200 mg/dL in a nonstressed, ambulatory subject supports the diagnosis of Diabetes Mellitus. ADA recommended reference rangePerformed By: #### CMP, HS TROP, PTT, CK, BNP, PT, MG, TSH3, SCAN CBC ####[facility] [place] [address] USAGlucose [Mass/volume] in Urine by Test stripOrdered By: Jesse Valdez on 08-84-0182Wrbrjhy Test strip (U) [Mass/Vol]Normal mg/dL NormalMercy Health Fairfield HospitalGlucose Test strip (U) [Mass/Vol]Glucose [Mass/volume] in Urine by Test stripNormalMercy Health Fairfield Hospital Hematocrit [Volume Fraction] of Blood by Automated countOrdered By: Jesse Valdez on 33-73-8496Mobhrzujcg (Bld) [Volume fraction]36.0 %Zrbenl79.0-46.4 [facility] HospitalComment on above:Performed By: #### CMP, HS TROP, PTT, CK, BNP, PT, MG, TSH3, SCAN CBC ####[facility] [address] [place] [address] USAHemoglobin Test strip Ql (U)Ordered By: Jesse Valdez on 72-40-4250Isacqpdqoc Ql (U)NegativeNegativeMercy Health Fairfield HospitalHemoglobin Ql (U)Hemoglobin [Presence] in Urine by Test stripNegNorwalk Memorial HospitalHemoglobin [Mass/volume] in Blood Ordered By: Jesse Valdez on 11-72-5754Doxmikmavr (Bld) [Mass/Vol]12.0 g/dL Xsbcvr08.8-15.4FWVUMedicine Harrison Community HospitalComment on above:Performed By: #### CMP, HS TROP, PTT, CK, BNP, PT, MG, TSH3, SCAN CBC ####[facility] [address] [place] [address] USAHyaline casts [#/area] in Urine sediment by Automated countOrdered By: Jesse Valdez on 09-17-2024 Hyaline casts Auto (Urine sed) [#/Area]None [LPF]0-8[facility] HospitalHyaline casts Auto (Urine sed) [#/Area]Hyaline casts [#/area] in Urine sediment by Automated count0-8[facility] HospitalINR in Platelet poor plasma by Coagulation assayOrdered By: Jesse Valdez on 67-67-2960VSP Coag (PPP) [Relative time]1.5 {INR}[facility] Comment on above:INR Therapeutic Range A) Pre- and Peroperative OAT started two weeks before surgery. NOT HIP SURGERY: 1.5 - 2.5 HIP SURGERY: 2 - 3B) Primary and secondary prevention of venous THROMBOSIS: 2 - 3C) Active venous thrombosis, pulmonary embolismand prevention of recurrent venous thrombosis: 2 - 3D) Preve ntion of arterial thromboembolismincluding patients with mechanical heart valves: 3 - 4.5Result Comment: INR Therapeutic Range A) Pre- and [...] patients with mechanical heart valves: 3 - 4.5Performed By: #### CMP, HS TROP, PTT, CK, BNP, PT, MG, TSH3, SCAN CBC ####[facility] [address] [place] [address] USAINR Coag (PPP) [Relative time]INR in Platelet poor plasma by Coagulation assayMercy Health Fairfield Hospital Comment on above:INR Therapeutic Range A) Pre- and Peroperative OAT started two weeks before surgery. NOT HIP SURGERY: 1.5 - 2.5 HIP SURGERY: 2 - 3B) Primary and secondary prevention of venous THROMBOSIS: 2 - 3C) Active venous thrombosis, pulmonary embolismand prevention of recurrent venous thrombosis: 2 - 3D) Preve ntion of arterial thromboembolismincluding patients with mechanical heart valves: 3 - 4.5Ketones Test strip Ql (U)Ordered By: Jesse Valdez on 50-95-3641Pqgzhyy Ql (U)Ketones [Presence] in Urine by Test stripNegative [facility] HospitalKetones [Presence] in Urine by Test strip Ordered By: Jesse Valdez on 68-44-8427Bxgtumg Ql (U)NegativeNormalNegative [facility] HospitalComment on above:Order Comment: Name Collection Type:: Clean-Voided MidstreamPerformed By: #### ADDONUAPLUS ####[facility] [place] [address] USALactate [Moles/volume] in Serum or PlasmaOrdered By: Jesse Valdez on 09-17-2024 Lactate [Moles/Vol]0.9 mmol/LNormal0.5-2.2FWVUMedicine [facility] Hospital Comment on above:Result Comment: PERFORMED BY: [facility] [address] [place] [address] PATHOLOGIST SENIOR HR MANAGER LUIS DEE M.D.Performed By: #### LACTIC #### [facility] [address] [place] [id number] USALactate [Moles/Vol]Lactate [Moles/volume] in Serum or Plasma0.5-2.2FWVUMedicine Harrison Community HospitalLeukocyte clumps [Presence] in Urine by AutomatedOrdered By: Jesse Valdez on 29-84-6583Mwvgygkbg clumps Auto Ql (U)Occasional [LPF][facility] Leukocyte clumps Auto Ql (U)Leukocyte clumps [Presence] in Urine by Automated [facility] HospitalLeukocyte esterase [Presence] in Urine by Test stripOrdered By: Jesse Valdez on 08-55-3956Szjhyoqor esterase Test strip Ql (U)NegativeNormalNegativeMercy Health Fairfield HospitalComment on above:Order Comment: Name Collection Type:: Clean-Voided MidstreamPerformed By: #### ADDONUAPLUS ####[facility] [address] [place] [address] USALeukocyte esterase Test strip Ql (U)Leukocyte esterase [Presence] in Urine by Test stripNegNorwalk Memorial HospitalLeukocytes [#/area] in Urine sediment by Automated countOrdered By: Jesse Valdez on 29-54-0889FMG Auto (Urine sed) [#/Area]3-4 [HPF]0-4 [facility] HospitalWBC Auto (Urine sed) [#/Area]Leukocytes [#/area] in Urine sediment by Automated count0-4FWVUMedicine Harrison Community HospitalLeukocytes [#/volume] corrected for nucleated erythrocytes in Blood by Automated counOrdered By: Jesse Valdez on 11-25-5486CSW corrected for nucl RBC Auto (Bld) [#/Vol]12.0 10*3/uLHigh3.8-11.6FWVUMedicine Harrison Community Hospital Leukocytes [#/volume] in Blood by Automated countOrdered By: Jesse Valdez on 56-27-7562JIQ (Bld) [#/Vol]12.0 10*3/uLHigh3.8-11.6FWVUMedicine Harrison Community HospitalComment on above:Performed By: #### CMP, HS TROP, PTT, CK, BNP, PT, MG, TSH3, SCAN CBC ####[address] [address] USALymphocytes [#/volume] in Blood by Automated countOrdered By: Jesse Valdez on 64-75-4695Nzgfsqdjuab (Bld) [#/Vol]0.6 10*3/uLLow1.00-4.8[facility] HospitalComment on above:Performed By: #### CMP, HS TROP, PTT, CK, BNP, PT, MG, TSH3, SCAN CBC ####[address] [address] USALymphocytes/100 leukocytes in Blood by Automated countOrdered By: Jesse Valdez on 07-45-1581Wwrjjhvdcmj/100 WBC (Bld)4.8 % Normal.[facility] HospitalComment on above:Performed By: #### CMP, HS TROP, PTT, CK, BNP, PT, MG, TSH3, SCAN CBC ####[address] [address] [facility] [Entitic mass] by Automated count Ordered By: Jesse Valdez on 86-65-6117TDZ (RBC) [Entitic mass]31.8 pgNormal 24.7-34.3FWVUMedicine Harrison Community HospitalComment on above:Performed By: #### CMP, HS TROP, PTT, CK, BNP, PT, MG, TSH3, SCAN CBC ####[address] [address] [facility] Auto (RBC) [Mass/Vol] Ordered By: Jesse Valdez on 57-99-4279RSKT (RBC) [Mass/Vol]33.3 g/dL 32.0-35.0[facility] HospitalV [Entitic volume] by Automated countOrdered By: Jesse Valdez on 00-12-9399HNT (RBC) [Entitic vol]95.5 fL Gmkpmc56-052NopbivqltMercy Health Fairfield HospitalComment on above:Performed By: #### CMP, HS TROP, PTT, CK, BNP, PT, MG, TSH3, SCAN CBC ####[address] [place] [address] USAMagnesium [Mass/volume] in Serum or PlasmaOrdered By: Jesse Valdez on 42-22-7266Olddeodgf [Mass/Vol] 1.6 mg/dLLow1.9-2.7FWVUMedicine Harrison Community HospitalComment on above:Performed By: #### CMP, HS TROP, PTT, CK, BNP, PT, MG, TSH3, SCAN CBC ####[place] [place] [address] USAMonocyte distribution width [Entitic volume] in Blood by AutomatedOrdered By: Jesse Valdez on 46-67-3504Fplaubte distribution width Auto (Bld) [Entitic vol]29.77 %High 0.00-20.00Mercy Health Fairfield HospitalComment on above:For adults in ED, MDW > 20.0 may be associated with a higher risk of sepsis during the first 12 h rs of hospital admissionMonocyte distribution width Auto (Bld) [Entitic vol] Monocyte distribution width [Entitic volume] in Blood by AutomatedHigh0.00-20.00 [facility] HospitalComment on above:For adults in ED, MDW > 20.0 may be associated with a higher risk of sepsis during the first 12 hrs of hospital admissionMucus [Presence] in Urine by AutomatedOrdered By: Jesse Valdez on 31-21-1138Thtab Auto Ql (U)Rare [LPF][facility] HospitalMucus Auto Ql (U)Mucus [Presence] in Urine by AutomatedMercy Health Fairfield HospitalNatriuretic peptide B [Mass/Vol]Ordered By: Jesse Valdez on 97-63-5611Bbouxaoxdiz peptide B (Bld) [Mass/Vol]BNP ser/plasHigh5-100[facility] HospitalNeutrophils [#/volume] in Blood by Automated countOrdered By: Jesse Valdez on 12-18-2150Jpnytcmrevm (Bld) [#/Vol]10.6 10*3/uLHigh 1.8-7.7FWVUMedicine Harrison Community HospitalComment on above:Performed By: #### CMP, HS TROP, PTT, CK, BNP, PT, MG, TSH3, SCAN CBC ####[facility] [place] [address] USANitrite Test strip Ql (U)Ordered By: Jesse Valdez on 93-62-7700Mlelbyw Ql (U)NegativeNegativeMercy Health Fairfield HospitalNitrite Ql (U)Nitrite [Presence] in Urine by Test stripNegative [facility] HospitalNo Panel InformationOrdered By: Jesse Valdez on 91-61-1563Cxwyd Gas Critical ValueSee commentMercy Health Fairfield HospitalComment on above:Critical Value called on: 09/17/2024 at 22:50 Blood Gas Sample SiteVenSelect Medical Cleveland Clinic Rehabilitation Hospital, AvonFiO221 %[facility] HospitalVenous Blood Base Excess-8.6 mmol/LLow-3.0-3.0[facility] HospitalVenous Blood Oxygen Unqpjkqnwq72.2 %High73.0-76.0 [facility] HospitalVenous Blood Partial Pressure CO230.5 mm[Hg]Low 38.0-50.0[facility] HospitalVenous Blood pH7.347.32-7.43[facility] HospitalEstimated GFR (CKD-EPI)17.388 mL/MinMercy Health Fairfield HospitalPharmacy Creatinine Clearance (Chem18.35[facility] HospitalBedside Glucose CommentGlu2: cleaned [facility]itan HospitalNucleated erythrocytes [Presence] in Blood by Automated countOrdered By: Jesse Valdez on 32-84-7848Sgaasogdc RBC Auto Ql (Bld)0.0 /100{WBC}0-0.5 [facility] HospitalPartial Thromboplastin Timeon 58-73-1916qMIM Coag (Bld) [Time]30.4 mBcxpku86.1-36.5[facility] Physician GroupComment on above:Result Comment: A hematocrit value greater than 55% may lead to inaccurate results in coagulation testing. Patients having hematocrit values >55% require a special collection tube for coagulation studies. Please contact the laboratory at [phone] for redraw instructions. PERFORMED BY: [facility] [address] [place] [address] PATHOLOGIST SENIOR HR MANAGER LUIS DEE M.D.Performed By: #### CMP, HS TROP, PTT, CK, BNP, PT, MG, TSH3, SCAN CBC ####[facility] [place] [address] USAPlatelet adequacy [Presence] in Blood by Light microscopyOrdered By: Jesse Valdez on 02-87-0228Wbxldcstb LM Ql (Bld)NormalSelect Medical Cleveland Clinic Rehabilitation Hospital, AvonPlatelets LM Ql (Bld)Platelet adequacy [Presence] in Blood by Light microscopyNoACMC Healthcare SystemPlatelet mean volume [Entitic volume] in Blood by Automated countOrdered By: Jesse Valdez on 30-16-5833Kmkzrifd mean volume (Bld) [Entitic vol]10.3 fLNormal6.3-10.7 [facility] HospitalComment on above:Performed By: #### CMP, HS TROP, PTT, CK, BNP, PT, MG, TSH3, SCAN CBC ####[address] [place] [address] USAPlatelet morphology finding [Identifier] in BloodOrdered By: Jesse Valdez on 19-95-0575Ccqdfqho morphology finding Nom (Bld)NormalSelect Medical Cleveland Clinic [facility] Hospital, Avon Platelet morphology finding Nom (Bld)Platelet morphology finding [Identifier] in BloodSelect Medical Cleveland Clinic Rehabilitation Hospital, AvonPlatelets [#/volume] in Blood by Automated countOrdered By: Jesse Valdez on 57-52-8951Ijyrjeegg (Bld) [#/Vol]143 10*3/kVHdt172-913JmvwxfuqgMercy Health Fairfield HospitalComment on above: Performed By: #### CMP, HS TROP, PTT, CK, BNP, PT, MG, TSH3, SCAN CBC ####[address] [address] [place] Potassium [Moles/volume] in Serum or PlasmaOrdered By: Jesse Valdez on 54-63-8068Cfnumymqv [Moles/Vol]3.9 mmol/LNormal3.5-5.1FWVUMedicine Harrison Community HospitalComment on above:Performed By: #### CMP, HS TROP, PTT, CK, BNP, PT, MG, TSH3, SCAN CBC ####[address] [address] USAProtein Test strip (U) [Mass/Vol]Ordered By: Jesse Nola on 06-67-4733Cqxsvqv (U) [Mass/Vol]Protein [Mass/volume] in Urine by Test stripHigh NegativeMercy Health Fairfield HospitalProtein [Mass/volume] in Serum or PlasmaOrdered By: Jesse Nola on 32-89-2878Agkmfjx [Mass/Vol]5.1 g/dLLow 6.4-8.9[facility] HospitalComment on above:Performed By: #### CMP, HS TROP, PTT, CK, BNP, PT, MG, TSH3, SCAN CBC ####[address] [place] [address] USAProtein [Mass/Vol]Protein [Mass/volume] in Serum or PlasmaLow6.4-8.9[facility] Protein [Mass/volume] in Urine by Test stripOrdered By: Jesse Valdez on 62-01-0491Awiynpv (U) [Mass/Vol]50 mg/dLHighNegativeMercy Health Fairfield HospitalComment on above:Order Comment: Name Collection Type:: Clean-Voided MidstreamPerformed By: #### ADDONUAPLUS ####[address] [address] USAProthrombin time (PT)Ordered By: Jesse Valdez on 64-72-9392UJ Coag (PPP) [Time]17.3 sHigh9.0-12.9[facility] HospitalComment on above:A hematocrit value greater than 55% may lead to inaccurate results in coagulation testing. Patientshaving hematocrit values >55% require a special collection tube for coagulation studies. Please contact the laboratory at [phone] for redraw instructions.Result Comment: A hematocrit value greater than 55% may lead to inaccurate results in coagulation testing. Patients having hematocrit values >55% require a special collection tube for coagulation studies. Please contact the laboratory at [phone] for redraw instructions.Performed By: #### CMP, HS TROP, PTT, CK, BNP, PT, MG, TSH3, SCAN CBC ####[address] [place] [address] USAPT Coag (PPP) [Time]Prothrombin time (PT)High9.0-12.9[facility] HospitalComment on above:A hematocrit value greater than 55% may lead to inaccurate results in coagulation testing. Patientshaving hematocrit values >55% require a special collection tube for coagulation studies. Please contact the laboratory at [phone] for redraw instructions.RBC morphologyOrdered By: Jesse Valdez on 08-80-2095PUU morphology finding Nom (Bld)NormalNormal NormalMercy Health Fairfield HospitalComment on above:Performed By: #### CMP, HS TROP, PTT, CK, BNP, PT, MG, TSH3, SCAN CBC ####[address] [address] USAScan and CBCon 01-97-8702Nbbd Corpuscular HGB Conc33.3 g/mQZxftpm97.0-35.0[facility] Physician GroupComment on above:Performed By: #### CMP, HS TROP, PTT, CK, BNP, PT, MG, TSH3, SCAN CBC ####[address] [place] [address] [place] Monocytes/100 WBC (Bld)29.77 %High0.00-20.00[facility] Physician GroupComment on above:Result Comment: For adults in ED, MDW > 20.0 may be associated with a higher risk of sepsis during the first 12 hrs of hospital admissionPerformed By: #### CMP, HS TROP, PTT, CK, BNP, PT, MG, TSH3, SCAN CBC ####[address] [place] [address] USANRBC%0.0 /100{WBC}Normal0-0.5 [facility] Physician GroupComment on above:Performed By: #### CMP, HS TROP, PTT, CK, BNP, PT, MG, TSH3, SCAN CBC ####[address] [address] USAPlatelet EstimateNormalNormalNormalThe Person Memorial Hospital Physician GroupComment on above:Performed By: #### CMP, HS TROP, PTT, CK, BNP, PT, MG, TSH3, SCAN CBC ####[address] [place] [address] USAPlatelet MorphologyNormalNormalNoNovant Health Presbyterian Medical Center Physician GroupComment on above:Result Comment: PERFORMED BY: [facility] [address] [place] [address] PATHOLOGIST SENIOR HR MANAGER LUIS DEE M.D.Performed By: #### CMP, HS TROP, PTT, CK, BNP, PT, MG, TSH3, SCAN CBC ####[id number] USASerum globulin measurement by calculation (mass/volume)Ordered By: Jesse Valdez on 87-05-8467Ndjxqycx (S) [Mass/Vol]2.4 g/dLNoACMC Healthcare SystemComment on above:Performed By: #### CMP, HS TROP, PTT, CK, BNP, PT, MG, TSH3, SCAN CBC ####[id number] USASerum or plasma albumin/globulin mass ratioOrdered By: Jesse Valdez on 90-61-8903Obecufe/Globulin [Mass ratio]1.1 {ratio} NormalMercy Health Fairfield HospitalComment on above:Performed By: #### CMP, HS TROP, PTT, CK, BNP, PT, MG, TSH3, SCAN CBC ####[id number] USAAlbumin/Globulin [Mass ratio]Serum or plasma albumin/globulin mass ratioEast Liverpool City Hospitalerum or plasma anion gap determinationOrdered By: Jesse Valdez on 84-67-3501Bksjl gap [Moles/Vol]10.4 mmol/LNormal6.0-15.0[facility] HospitalComment on above:Performed By: #### CMP, HS TROP, PTT, CK, BNP, PT, MG, TSH3, SCAN CBC ####[id number] USASodium [Moles/volume] in Serum or PlasmaOrdered By: Jesse Valdez on 09-17-2024 Sodium [Moles/Vol]136 mmol/AHxxqpc681-134UeitdrsatMercy Health Fairfield Hospital Comment on above:Performed By: #### CMP, HS TROP, PTT, CK, BNP, PT, MG, TSH3, SCAN CBC ####[address] [place] [address] USASpecific gravity Test strip (U) [Rel density]Ordered By: Jesse Valdez on 96-55-1558Waczaetu gravity (U) [Rel density]1.0231.001-1.030East Liverpool City Hospitalpecific gravity (U) [Rel density]Specific gravity of Urine by Test strip1.001-1.030[facility] HospitalThyrotropin [Units/volume] in Serum or PlasmaOrdered By: Jesse Valdez on 38-61-7011ZQT Qn3.69 m[IU]/L Normal0.45-5.33[facility] HospitalComment on above:Result Comment: PERFORMED BY: [address] [address] PATHOLOGIST SENIOR HR MANAGER LUIS DEE M.D.Performed By: #### CMP, HS TROP, PTT, CK, BNP, PT, MG, TSH3, SCAN CBC ####[address] [address] [facility] QnThyrotropin [Units/volume] in Serum or Plasma0.45-5.33[facility] HospitalTroponin I High Sensitivityon 50-47-2848Aoxlites I High Sensitivity9.3 pg/mLNormal0.0-15.0[facility] Physician GroupComment on above: Result Comment: PERFORMED BY: [facility] [address] [place] [address] PATHOLOGIST SENIOR HR MANAGER LUIS DEE M.D.Performed By: #### CMP, HS TROP, PTT, CK, BNP, PT, MG, TSH3, SCAN CBC ####[address] [address] USATroponin I.cardiac [Mass/volume] in Serum or Plasma by Detection limit <= 0.01 ng/Ordered By: Jesse Valdez on 03-65-9371Yfkubkfe I.cardiac DL <= 0.01 ng/mL [Mass/Vol]9.3 pg/mL0.0-15.0[facility] HospitalURINE CULTURE, ROUTINEon 95-91-3495Iyxjyeqf identified Cx Nom (U) Urine Culture, Routine [facility]OM[facility] HealthcareBacteria identified Cx Nom (U)Mixed urogenital floraNOCO HealthcareBacteria identified Cx Nom (U)Less than 10,000 colonies/mLNOMS HealthcareBacteria identified Cx Nom (U)Performed at: - [facility] HealthcareBacteria identified Cx Nom (U)[address] [place], [place] [id number] [facility] HealthcareBacteria identified Cx Nom (U)Pharmacy Helper: Elpidio Delgado PhD, Phone: [phone] HealthcareCLINISYNCNSAINT FRANCIS [facility]OSPITAL [facility] HealthcareUrea nitrogen [Mass/volume] in Serum or PlasmaOrdered By: Jesse Valdez on 74-79-0165Hczr nitrogen [Mass/Vol]41 mg/dLHigh7-25[facility] HospitalComment on above:Performed By: #### CMP, HS TROP, PTT, CK, BNP, PT, MG, TSH3, SCAN CBC ####[facility] [address] [place] [address] USAUrine appearanceOrdered By: Jesse Valdez on 68-56-8157Jnhlfoqjfw (U)ClearNormal ClearMercy Health Fairfield HospitalComment on above:Order Comment: Name Collection Type:: Clean-Voided MidstreamPerformed By: #### ADDONUAPLUS ####[address] Urobilinogen Test strip (U) [Mass/Vol]Ordered By: Jesse Valdez on 76-10-2931Edqlwnpwfgum (U) [Mass/Vol]Normal mg/dLNoACMC Healthcare SystemUrobilinogen (U) [Mass/Vol]Urobilinogen [Mass/volume] in Urine by Test stripNoACMC Healthcare SystemVenous Blood GasOrdered By: Jesse Valdez on 85-96-2533PM0 [Moles/Vol]16.9 mmol/LLow24.0-29.0[facility] HospitalComment on above:Performed By: #### VBG ####Point of Care testing,HCO3 (Bld) [Moles/Vol]15.9 mmol/LLow23.0-29.0[facility] HospitalComment on above:Performed By: #### VBG ####Point of Care testing,Venous Blood Gason 24-60-5422JqepxxeclkbCentraState Healthcare System Physician [facility] Comment on above:Result Comment: Critical Value called on: 09/17/2024 at 22:50 PERFORMED BY: [place] [address] PATHOLOGIST SENIOR HR MANAGER LUIS DEE M.D.Performed By: #### VBG ####Point of Care testing,VBG Base Excess -8.6 mmol/LLow-3.0-3.0[facility] Physician [facility] HospitalComment on above:Performed By: #### VBG ####Point of Care testing,VBG Draw SiteVenMemorial Hermann [facility] Physician [facility] HospitalComment on above:Performed By: #### VBG ####Point of Care testing,VBG Frac Inspired O221 %NormalThe [facility] Physician [facility] HospitalComment on above:Performed By: #### VBG ####Point of Care testing,VBG Oxygen Rtmcvggrkd26.2 %High73.0-76.0[facility] Physician [facility] HospitalComment on above:Performed By: #### VBG ####Point of Care testing,VBG PHS987.5 mm[Hg]Low38.0-50.0[facility] Physician [facility] HospitalComment on above:Performed By: #### VBG ####Point of Care testing,VBG PH Venous PH7.76Spxncc8.32-7.43[facility] Physician [facility] HospitalComment on above:Performed By: #### VBG ####Point of Care testing,XR chest 2V*on 35-41-3642CQ chest 2V*[facility] Main [address] [address] XRay Report Signed Patient: Hailee Trivedi MR#: [id number] 306 : 1940 Acct:[id number] Age/Sex: 84 / F ADM Date: 09/17/24 Loc: ER Room: Type: [facility] ER Attending Dr: Copies to: Jesse Valdez DO Ordering Provider: Jesse Valdez DO Date of Service: 09/17/24 XR/XR chest 2V*: Weakness XR chest 2V* 09/17/2024 8:59 PM SIGNS AND SYMPTOMS: Increasing weakness PROTOCOL: Frontal and lateral radiograph of the chest COMPARISON: 01/08/2020 FINDINGS: The trachea is midline. There is a right-sided Ytopjc-y-Npjl with the tip at the cavoatrial junction. The heart and mediastinal structures are within normal limits. The lung parenchyma is clear. The bony thorax is intact. Degenerative changes are noted in the shoulders. XR/XR chest 2V* IMPRESSION: No acute cardiopulmonary pathology. Chronic findings are noted as above. Impression dictated by: Armando Huynh M.D.09/17/2024 10:43 PM Dictation Location: [place] [address] Transcribed By: [facility] 09/17/242242 Dictated By: Armando Huynh II, MD 09/17/242239 Signed By: 09/17/242242[facility] Physician GroupaPTT in Platelet poor plasma by Coagulation assayOrdered By: Jesse Valdez on 57-99-6892bJKK Coag (PPP) [Time]Activated partial thromboplastin time (aPTT) in platelet poor plasma by coagulation a25.1-36.5FWVUMedicine Harrison Community HospitalComment on above:A hematocrit value greater than 55% may lead to inaccurate results in coagulation testing. Patientshaving hematocrit values >55% require a special collection tube for coagulation studies. Please contact the laboratory at [phone] for redraw instructions.pH Test strip (U)Ordered By: Jesse Valdez on 09-17-2024 pH (U)pH of Urine by Test strip5.0-9.0[facility] HospitalpH of Urine by Test stripOrdered By: Jesse Valdez on 04-77-4202hN (U)5.5 [pH] Normal5.0-9.0[facility] HospitalComment on above:Order Comment: Name Collection Type:: Clean-Voided MidstreamPerformed By: #### ADDONUAPLUS ####[facility] [id number] [place] [address] [facility] Basophils Auto (Bld) [#/Vol]on 72-70-6205Yjrafphrd (Bld) [#/Vol]0.0 10 3/uL 0.0-0.1FWVUMedicine Harrison Community HospitalBasophils (Bld) [#/Vol]Automated basophil count0.0-0.1FWVUMedicine Harrison Community HospitalBasophils/100 WBC Auto (Bld)on 60-18-7897Obodsbpwe/100 WBC (Bld)0.1 %Low0.2-2.0[facility] HospitalBasophils/100 WBC (Bld)Automated basophil %Low0.2-2.0[facility] HospitalEosinophils/100 WBC Auto (Bld)on 09-14-2024 Eosinophils/100 WBC (Bld)0.5 %Low0.9-7.0[facility] Eosinophils/100 WBC (Bld)Automated eosinophil %Low0.9-7.0[facility] HospitalErythrocyte distribution width Auto (RBC) [Ratio]on 09-14-2024 Erythrocyte distribution width (RBC) [Ratio]12.8 %11.0-15.0[facility] HospitalErythrocyte distribution width (RBC) [Ratio]Erythrocyte distribution width [Ratio] by Automated count11.0-15.0[facility] HospitalEstimated glomerular filtration rate (GFR) non- Americanon 21-34-2901FXR/1.73 sq M.predicted among non-blacks MDRD (S/P/Bld) [Vol rate/Area]16 mL/min/{1.73_m2}Low>=60 mL/min/1.[address]m [address] [place], [place] [address]GFR/1.73 sq M.predicted among non-blacks MDRD (S/P/Bld) [Vol rate/Area] Estimated glomerular filtration rate (GFR) non- AmericanLow>=60 mL/min/1.[address]m [address] [place], [place] [address]Globulin Calc (S) [Mass/Vol]on 54-79-7000Weeuqrtq (S) [Mass/Vol]3.3 g/dLMercy Health Fairfield Hospital Globulin (S) [Mass/Vol]Serum globulin measurement by calculation (mass/volume) [facility] HospitalHematocrit Auto (Bld) [Volume fraction]on 66-13-8659Vtwyosgcbv (Bld) [Volume fraction]37.5 %36.0-48.0[facility] HospitalHematocrit (Bld) [Volume fraction]Hematocrit [Volume Fraction] of Blood by Automated count36.0-48.0[facility] HospitalHemoglobin [Mass/volume] in Bloodon 16-47-9826Ardmycnpsi (Bld) [Mass/Vol]12.7 g/dL12.0-16.0 [facility] HospitalHemoglobin (Bld) [Mass/Vol]Hemoglobin [Mass/volume] in Blood12.0-16.0[facility] HospitalLaboratory - Chemistry and Chemistry - challengeon 73-65-6540Emtacqjux Ql (U)NegativeNEGATIVE [facility] HospitalGlucose (U) [Mass/Vol]NegativeNEGATIVEMercy Health Fairfield HospitalKetones Ql (U)NegativeNEGATIVEMercy Health Fairfield HospitalpH (U)6.0 [pH]5.0-9.0[facility] City Hospitalpecific gravity (U) [Rel density]1.0201.005-1.025[facility] HospitalUrobilinogen Qn (U)0.2 {Marley'U}/dL0.2-1.0[facility] HospitalAlbumin [Mass/Vol]2.6 g/dLLow3.4-5.0[facility] HospitalALP [Catalytic activity/Vol]84 U/T18-056YpzberqgoMercy Health Fairfield HospitalALT [Catalytic activity/Vol]32 U/T81-18LcjwpojcaMercy Health Fairfield HospitalAST [Catalytic activity/Vol]19 U/E74-87ZmotogyfeMercy Health Fairfield HospitalBilirubin [Mass/Vol]0.3 mg/dL0.2-1.0[facility] HospitalCalcium [Mass/Vol]8.2 mg/dLLow 8.5-10.1FWVUMedicine Harrison Community HospitalChloride [Moles/Vol]111 mmol/LHigh 98-107Mer[facility] HospitalCO2 [Moles/Vol]18.4 mmol/LLow21.0-32.0 [facility] HospitalCreatinine [Mass/Vol]2.86 mg/dLHigh0.55-1.02 [facility] HospitalGFR/1.73 sq M.predicted MDRD (S/P/Bld) [Vol rate/Area]19 mL/min/{1.73_m2}Low>=60 mL/min/1.73m 2FWVUMedicine Harrison Community HospitalGlucose [Mass/Vol]218 mg/zWFgyo98-612WruxzxidmMercy Health [facility] Hospital Lipase [Catalytic activity/Vol]78.0 U/LHigh16.0-77.0[facility] HospitalPotassium [Moles/Vol]3.8 mmol/L3.5-5.1FWVUMedicine [facility] Hospital Protein [Mass/Vol]5.9 g/dLLow6.4-8.2FSalem City Hospitalodium [Moles/Vol]142 mmol/E593-643OthgfzlvlMercy Health Fairfield HospitalTSH Qn1.683 m[IU]/L 0.358-3.740Mer[facility] HospitalUrea nitrogen [Mass/Vol]47.0 mg/dL High7.0-18.0[facility] HospitalUrea nitrogen/Creatinine [Mass ratio]16.4 mg/mgMercy Health Fairfield HospitalLaboratory - Hematology and Cell countson 68-29-7702Yjchtejm granulocytes/100 WBC (Bld)1.0 %High0.0-0.5 [facility] HospitalLaboratory - Specimen informationon 09-14-2024 Appearance (U)CLEARCLEARFWVUMedicine Harrison Community HospitalColor (U)LT. YELLOW YELLOWMercy Health Fairfield HospitalLaboratory - Urinalysison 09-14-2024 Leukocyte esterase Test strip Ql (U)MODERATEAbnormalNEGATIVEMercy Health Fairfield HospitalMucus Ql (Urine sed)NONE SEENNONE SEENMercy Health Fairfield HospitalNitrite Ql (U)NegativeNEGATIVEMercy Health Fairfield HospitalProtein Ql (U)TRACE mg/dLNEG/TRACEMercy Health Fairfield HospitalLeukocytes [#/volume] corrected for nucleated erythrocytes in Blood by Automated counon 03-40-2855BQE corrected for nucl RBC Auto (Bld) [#/Vol]15.6 10 3/uLHigh4.0-11.0[facility] HospitalWBC corrected for nucl RBC Auto (Bld) [#/Vol]Leukocytes [#/volume] corrected for nucleated erythrocytes in Blood by Automated counHigh 4.0-11.0[facility] HospitalLymphocytes Auto (Bld) [#/Vol]on 91-73-2375Gkllqlugsgc (Bld) [#/Vol]3.0 10 3/uL1.2-3.8[facility] HospitalLymphocytes (Bld) [#/Vol]Lymphocytes [#/volume] in Blood by Automated count1.2-3.8[facility] HospitalLymphocytes/100 WBC Auto (Bld)on 35-78-6422Xpqjjeencrj/100 WBC (Bld)19.0 %Low20.5-60.0[facility] HospitalLymphocytes/100 WBC (Bld)Lymphocytes/100 leukocytes in Blood by Automated fxncmGzy77.5-60.0[facility] HospitalH Auto (RBC) [Entitic mass] on 54-05-8921MTE (RBC) [Entitic mass]32.2 pg26.7-34.0[facility] (RBC) [Entitic mass]MCH [Entitic mass] by Automated count26.7-34.0 [facility] HospitalHC Auto (RBC) [Mass/Vol]on 74-16-4137OIRS (RBC) [Mass/Vol]33.9 g/dL29.9-35.2FProMedica Defiance Regional HospitalHC (RBC) [Mass/Vol]MCHC [Mass/volume] by Automated count29.9-35.2FWVUMedicine Harrison Community HospitalMCV Auto (RBC) [Entitic vol]on 67-16-2196VHO (RBC) [Entitic vol] 94.9 fL81.0-99.0[facility] HospitalV (RBC) [Entitic vol]MCV [Entitic volume] by Automated count81.0-99.0[facility] Monocytes Auto (Bld) [#/Vol]on 40-65-9978Znaqkkhji (Bld) [#/Vol]0.8 10 3/uL 0.3-0.8[facility] HospitalMonocytes (Bld) [#/Vol]Automated blood monocyte count0.3-0.8[facility] HospitalMonocytes/100 WBC Auto (Bld)on 54-40-1632Dkjdxrool/100 WBC (Bld)5.1 %1.7-12.0[facility] HospitalMonocytes/100 WBC (Bld)Automated monocyte %1.7-12.0[facility] HospitalNeutrophils Auto (Bld) [#/Vol]on 43-56-4945Kgwplxsxjlw (Bld) [#/Vol]11.6 10 3/uLHigh1.4-6.5FWVUMedicine Harrison Community HospitalNeutrophils (Bld) [#/Vol]Neutrophils [#/volume] in Blood by Automated countHigh1.4-6.5FWVUMedicine Harrison Community HospitalNeutrophils/100 WBC Auto (Bld)on 09-14-2024 Neutrophils/100 WBC (Bld)74.3 %43.0-75.0[facility] Neutrophils/100 WBC (Bld)Automated neutrophil %43.0-75.0[facility] HospitalNo Panel Informationon 25-96-5490Vzdvexno I High Sensitivity6.9 pg/mL4.0-51.3FWVUMedicine Harrison Community HospitalComment on above:CUT-OFF POINTS HAVE BEEN ESTABLISHED BASED ON THE FOURTHUNIVERSAL DEFINITION OF MYOCARDIAL INFARCTION. THE UPPERREFERENCE LIMIT (URL) OF TROPONIN, DEFINED THE 99THPERCENTILE OF cTnI DISTRIBUTION IN A REFERENCE POPULATION,HAS BEEN CONFIRMED THE DECISION THRESHOLD FOR MIDIAGNOSIS.99TH PERCENTILE = 51.4 PG/MLNOTE: HIGH-SENSITIVITY TROPONIN ASSAY IS NOT INTENDED TO BEUSED IN ISOLATION BUT SHOULD BE INTERPRETED IN CONJUNCTIONWITH OTHER DIAGNOSTIC AND CLINICAL INFORMATION.Miscellaneous Test CommentSee commentMercy Health Fairfield HospitalComment on above:Specimen Source: UCC - Urine,Clean Catch - Urine CC - 200.100Urine BacteriaTRACE #/HPFAbnormalNONE SEENMercy Health Fairfield HospitalUrine Culture ReflexedYESCCI Hospital LimaUrine Culture Result 1\R\ Urine Culture, RoutineMercy Health Fairfield HospitalUrine Microscopic ReviewYESMercy Health Fairfield HospitalUrine Occult BloodTRACE-I NEGATIVEMercy Health Fairfield HospitalUrine Other CastsNONE SEEN #/LPFNONE SEENMercy Health Fairfield HospitalUrine Other CrystalsNone Seen #/HPFNone SeenMercy Health Fairfield HospitalUrine RBC2-5 #/HPFAbnormal0-2FWVUMedicine Harrison Community HospitalUrine Squamous Epithelial CellsFEW #/LPFAbnormalNONE/RARE [facility] HospitalUrine WBC5-10 #/HPFAbnormalNONE SEENMercy Health Fairfield HospitalEosinophils # (Auto)0.1 10 3/uL0.0-0.7FWVUMedicine Harrison Community HospitalImmature Granulocyte # (Auto)0.15 10 3/uLHigh0.00-0.03[facility] HospitalPlatelet mean volume Auto (Bld) [Entitic vol]on 66-93-1417Qfvypcmd mean volume (Bld) [Entitic vol]11.3 fL9.5-13.5FWVUMedicine Harrison Community HospitalPlatelet mean volume (Bld) [Entitic vol]Platelet mean volume [Entitic volume] in Blood by Automated count9.5-13.5FWVUMedicine Harrison Community HospitalPlatelets Auto (Bld) [#/Vol]on 97-23-6717Mnvdiizbg (Bld) [#/Vol] 229 10 3/dL942-980TrutuesnnMercy Health Fairfield HospitalPlatelets (Bld) [#/Vol] Platelets [#/volume] in Blood by Automated -274UrjjirtxxMercy Health Fairfield HospitalRBC Auto (Bld) [#/Vol]on 24-40-2979QIA (Bld) [#/Vol]3.95 10 6/uL Low4.20-5.40[facility] HospitalRBC (Bld) [#/Vol]Erythrocytes [#/volume] in Blood by Automated countLow4.20-5.40[facility] Hospitalerum or plasma albumin/globulin mass ratioon 73-37-7978Biphlys/Globulin [Mass ratio]0.8 {ratio}[facility] HospitalAlbumin/Globulin [Mass ratio]Serum or plasma albumin/globulin mass ratioEast Liverpool City Hospitalerum or plasma anion gap determinationon 67-86-4792Eaenc gap [Moles/Vol] 16.4 mmol/LFWVUMedicine Harrison Community HospitalAnion gap [Moles/Vol]Serum or plasma anion gap determinationMercy Health Fairfield HospitalAlanine aminotransferase [Enzymatic activity/volume] in Serum or PlasmaOrdered By: Claire Choi on 42-90-9878LID [Catalytic activity/Vol]10 U/LMercy Health Fairfield HospitalALT [Catalytic activity/Vol]Alanine aminotransferase [Enzymatic activity/volume] in Serum or PlasmaMercy Health Fairfield HospitalAlbumin [Mass/volume] in Serum or PlasmaOrdered By: Claire Choi on 37-61-1926Cdzhrkm [Mass/Vol]3.5 g/dL2.9-4.4FWVUMedicine [facility] Hospital Albumin [Mass/volume] in Serum or Plasma by Bromocresol green (BCG) dye binding methoOrdered By: Claire Choi on 54-11-0715Tpwcxdn BCG dye [Mass/Vol]3.9 g/dL3.5-5.7FWVUMedicine Harrison Community HospitalAlkaline phosphatase [Enzymatic activity/volume] in Serum or PlasmaOrdered By: Claire Choi on 08-01-2024 ALP [Catalytic activity/Vol]99 U/N94-456LwicjlgbaMercy Health Fairfield HospitalALP [Catalytic activity/Vol]Alkaline phosphatase [Enzymatic activity/volume] in Serum or Hgamzk77-387UdcrdhibyMercy Health Fairfield HospitalAspartate aminotransferase [Enzymatic activity/volume] in Serum or PlasmaOrdered By: Claire Choi on 71-20-9955AFQ [Catalytic activity/Vol]14 U/E07-96DykimdfpoMercy Health Fairfield HospitalAST [Catalytic activity/Vol]Aspartate aminotransferase [Enzymatic activity/volume] in Serum or Irhstp53-42PfqcuvkseMercy Health Fairfield Hospital Basophils Auto (Bld) [#/Vol]Ordered By: Claire Choi on 89-53-8339Lkzfulpuz (Bld) [#/Vol]0.0 10*3/uL0.0-0.2FWVUMedicine Harrison Community HospitalBasophils (Bld) [#/Vol]Automated basophil count0.0-0.2FWVUM[facility] Basophils/100 WBC Auto (Bld)Ordered By: Claire Choi on 08-01-2024 Basophils/100 WBC (Bld)0.4 %.[facility] HospitalBasophils/100 WBC (Bld)Automated basophil %.[facility] HospitalBilirubin.total [Mass/volume] in Serum or PlasmaOrdered By: Claire Choi on 08-01-2024 Bilirubin [Mass/Vol]0.6 mg/dL0.3-1.0[facility] HospitalBilirubin [Mass/Vol]Bilirubin.total [Mass/volume] in Serum or Plasma0.3-1.0[facility] HospitalCBC W Auto Differential panel (Bld)on 79-51-6089Fibxlvwiw (Bld) [#/Vol]0.0 10*3/uL0.0 - 0.2 10*3/uLNOMS HealthcareBasophils/100 WBC Manual cnt (Syn fld)0.4 %.[facility] HealthcareEosinophils (Bld) [#/Vol]0.1 10*3/uL0.0 - 0.45 10*3/uLNOMS HealthcareEosinophils/100 WBC Manual cnt (Syn fld)1.2 %.[facility] LouisErythrocyte distribution width (RBC) [Ratio]13.7 %11.9 - 15.3 %[facility] LouisHematocrit (Bld) [Volume fraction]37.9 %34.0 - 46.4 %[facility] Hemoglobin (Bld) [Mass/Vol]12.7 g/dL11.8 - 15.4 g/dLDAVIS HOSPITAL AND [facility] HealthcareLymphocytes (Bld) [#/Vol]2.8 10*3/uL1.00 - 4.8 10*3/uLNOMS HealthcareLymphocytes/100 WBC Manual cnt (Syn fld)30.8 %.[facility]. LouisMCH (RBC) [Entitic mass]32.5 pg24.7 - 34.3 pgNONortheast Missouri Rural Health NetworkMCHC (RBC) [Mass/Vol]33.6 g/dL32.0 - 35.0 g/dLThe Rehabilitation Institute of St. LouisMCV (RBC) [Entitic vol]96.6 fL80 - 100 fLDAVIS [facility]OSPITAL AND [facility]ICAL [facility] HealthcareMonocytes (Bld) [#/Vol]0.7 10*3/uL0.0 - 0.8 10*3/uLNOMS Healthcare Monocytes+Macrophages/100 WBC Manual cnt (Syn fld)7.9 %.[facility] Neutrophils (Bld) [#/Vol]5.4 10*3/uL1.8 - 7.7 10*3/uLNOMS Healthcare Neutrophils/100 WBC Manual cnt (Syn fld)59.7 %.[facility] HealthcareNRBC0.1 /100{WBC}0 - 0.5 /100{WBC}[facility]OMS HealthcarePlatelet mean volume (Bld) [Entitic vol]9.8 fL6.3 - 10.7 fLNOCO HealthcarePlatelets (Bld) [#/Vol]209 10*3/uL150 - 450 10*3/uLNOMS HealthcareRBC LM.HPF (Urine sed) [#/Area]3.93 /[HPF]3.60 - 5.00MS Healthcare WBC (Bld) [#/Vol]9.0 10*3/uL3.8 - 11.6 10*3/uLNOMS HealthcareWBC LM.HPF (Urine sed) [#/Area]9.0 10*3/uL3.8 - 11.6 10*3/uLNOMS HealthcareNOCO HealthcareCalcium [Mass/volume] in Serum or PlasmaOrdered By: Claire Choi on 08-01-2024 Calcium [Mass/Vol]8.6 mg/dL8.6-10.3FWVUMedicine Harrison Community HospitalCarbon dioxide, total [Moles/volume] in Serum or PlasmaOrdered By: Claire Choi on 22-99-0357DO2 [Moles/Vol]22.2 mmol/L21.0-31.0[facility] Chloride [Moles/volume] in Serum or PlasmaOrdered By: Claire Choi on 27-76-2613Ndseoptx [Moles/Vol]108 mmol/LNdkx70-313XdrxllgkgMercy Health Fairfield HospitalComprehensive metabolic panelon 73-54-2628Vdpbfkq [Mass/Vol]3.9 g/dL3.5 - 5.7 g/dLThe [facility] Institute of St. LouisAlbumin/Globulin [Mass ratio]1.3 {ratio}[facility] ALP [Catalytic activity/Vol]99 U/L34 - 104 U/LNOMS HealthcareALT [Catalytic activity/Vol]10 U/L7 - 52 U/LNOMS HealthcareAnion gap [Moles/Vol]12.7 mmol/L6.0 - 15.0NOMS HealthcareAST [Catalytic activity/Vol]14 U/L13 - 39 U/LNOMS HealthcareBilirubin [Mass/Vol]0.6 mg/dL0.3 - 1.0 mg/dLNOMS HealthcareCalcium [Mass/Vol]8.6 mg/dL8.6 - 10.3 mg/dLNOMS HealthcareChloride [Moles/Vol]108 mmol/L High98 - 107 mmol/LNOMS HealthcareCO2 [Moles/Vol]22.2 mmol/L21.0 - 31.0 mmol/L [facility] HealthcareCreatinine (U) [Mass/Vol]2.98 mg/dLHigh0.60 - 1.20 mg/dLNOMS HealthcareCREATININE CLR CALC KRMIWGCP84.51NOMS HealthcareGFR/1.73 sq M.predicted MDRD (S/P/Bld) [Vol rate/Area]15.173 mL/min/{1.73_m2}[facility] Globulin (S) [Mass/Vol]2.9 g/dLNOMS HealthcareGlucose [Mass/Vol]102 mg/cQZtct62 - 100 mg/dLNOCO HealthcareComment on above:Random Glucose Reference Range is dependent on time and content of last meal. Glucose of more than 200 mg/dL in a nonstressed, ambulatory subject supports the diagnosis of Diabetes Mellitus. ADA recommended reference range Interpretation and review of laboratory resultsAbnormalNOMS HealthcarePotassium [Moles/Vol]4.9 mmol/L3.5 - 5.1 mmol/LNOMS HealthcareProtein [Mass/Vol]6.8 g/dL 6.4 - 8.9 g/dLNOMS HealthcareSodium [Moles/Vol]138 mmol/L136 - 145 mmol/LNOMS HealthcareUrea nitrogen [Mass/Vol]40 mg/dLHigh7 - 25 mg/dLNOMS HealthcareNOMS HealthcareCreatinine [Mass/volume] in Serum or PlasmaOrdered By: Claire Choi on 90-65-6416Jlsxvcejjh [Mass/Vol]2.98 mg/dLHigh0.60-1.20[facility] CenterEosinophils Auto (Bld) [#/Vol]Ordered By: Claire Choi on 91-13-5157Nouagqpmpoq (Bld) [#/Vol]0.1 10*3/uL0.0-0.45[facility] HospitalEosinophils (Bld) [#/Vol]Automated eosinophil count 0.0-0.45[facility] HospitalEosinophils/100 WBC Auto (Bld)Ordered By: Claire Choi on 83-58-9544Zmifjxttjst/100 WBC (Bld)1.2 %.[facility] HospitalEosinophils/100 WBC (Bld)Automated eosinophil %.[facility] HospitalErythrocyte distribution width Auto (RBC) [Ratio]Ordered By: Claire Choi on 86-59-5592Sjulzblyvmh distribution width (RBC) [Ratio] 13.7 %11.9-15.3FWVUMedicine Harrison Community HospitalGlobulin Calc (S) [Mass/Vol] Ordered By: Claire Choi on 08-43-0237Nlgajlnm (S) [Mass/Vol]2.9 g/dL [facility] HospitalGlobulin (S) [Mass/Vol]Serum globulin measurement by calculation (mass/volume)[facility] HospitalGlucose [Mass/volume] in Serum or PlasmaOrdered By: Claire Choi on 08-01-2024 Glucose [Mass/Vol]102 mg/mPJxks14-429GznnfhlibMercy Health Fairfield HospitalComment on above:ADA recommended reference rangeRandom Glucose Reference Range is dependent on time and content of last meal. Glucose of more than 200 mg/dL in a nonstressed, ambulatory subject supports the diagnosisof Diabetes Mellitus. Hematocrit Auto (Bld) [Volume fraction]Ordered By: Claire Choi on 13-31-6669Rroxdjqjwi (Bld) [Volume fraction]37.9 %34.0-46.4FWVUMedicine Harrison Community HospitalHemoglobin [Mass/volume] in BloodOrdered By: Claire Choi on 45-13-5508Nkmcidvcxz (Bld) [Mass/Vol]12.7 g/dL11.8-15.4FWVUMedicine Harrison Community HospitalIgA [Mass/volume] in Serum or PlasmaOrdered By: Claire Choi on 48-13-9034KuU [Mass/Vol]241 mg/jV32-991IfhrrbpfaMercy Health Fairfield HospitalIgE [Units/volume] in Serum or PlasmaOrdered By: Claire Choi on 30-19-3510GqT Qn13 [IU]/mL6-495Mer[facility] HospitalComment on above:Performed at: [address] [id number] Director: Britton Valente MD, Phone: [phone] QnIgE [Units/volume] in Serum or Plasma 6-495[facility] HospitalComment on above:Performed at: [address] [id number] Director: Britton Valente MD, Phone: [phone] [Mass/volume] in Serum or PlasmaOrdered By: Claire Choi on 45-48-2772VuA [Mass/Vol]1009 mg/wE160-1682RrinjaohpMercy Health Fairfield HospitalIgM [Mass/volume] in Serum or PlasmaOrdered By: Claire Choi on 50-64-7717ToB [Mass/Vol]144 mg/lF15-304FpxghlulqMercy Health Fairfield HospitalComment on above:Performed at: [facility] [place] [id number] Director: Elpidio Delgado PhD, Phone: [phone] Immunoglobulin light chains.kappa.free [Mass/volume] in SerumOrdered By: Claire Choi on 95-98-9683Cqpdeseuqkjfjt light chains.kappa.free (S) [Mass/Vol] 47.2 mg/LHigh3.3-19.4FWVUMedicine Harrison Community HospitalImmunoglobulin light chains.kappa.free/Immunoglobulin light chains.lambda.free [MassOrdered By: Claire Choi on 30-77-2315Dvcpltgyntacxt light chains.kappa.free/Immunoglobulin light chains.lambda.free (S) [Mass ratio]1.65 0.26-1.65Mer[facility] HospitalComment on above:Performed at: [facility] [address] [id number] Director: Elpidio Delgado PhD, Phone: [phone] light chains.lambda.free [Mass/volume] in Serum or PlasmaOrdered By: Claire Choi on 08-01-2024 Immunoglobulin light chains.lambda.free [Mass/Vol]28.6 mg/LHigh5.7-26.3FWVUMedicine Harrison Community HospitalLeukocytes [#/volume] corrected for nucleated erythrocytes in Blood by Automated counOrdered By: Claire Choi on 59-21-9758ORA corrected for nucl RBC Auto (Bld) [#/Vol]9.0 10*3/uL3.8-11.6 [facility] HospitalLymphocytes Auto (Bld) [#/Vol]Ordered By: Claire Choi on 26-61-4145Vpzgzaxicfc (Bld) [#/Vol]2.8 10*3/uL1.00-4.8 [facility] HospitalLymphocytes (Bld) [#/Vol]Lymphocytes [#/volume] in Blood by Automated count1.00-4.8[facility] Lymphocytes/100 WBC Auto (Bld)Ordered By: Claire Choi on 08-01-2024 Lymphocytes/100 WBC (Bld)30.8 %.[facility] HospitalLymphocytes/100 WBC (Bld)Lymphocytes/100 leukocytes in Blood by Automated count.[facility] Auto (RBC) [Entitic mass]Ordered By: Claire Choi on 35-07-8889PWR (RBC) [Entitic mass]32.5 pg24.7-34.3FProMedica Defiance Regional HospitalHC Auto (RBC) [Mass/Vol]Ordered By: Claire Choi on 74-57-9607NSHO (RBC) [Mass/Vol]33.6 g/dL32.0-35.0[facility] HospitalMCV Auto (RBC) [Entitic vol]Ordered By: Claire hCoi on 78-45-7679CSM (RBC) [Entitic vol]96.6 qQ41-667GzhhoqyhpMercy Health Fairfield HospitalMonocytes Auto (Bld) [#/Vol]Ordered By: Claire Choi on 89-60-3591Edlqpzljo (Bld) [#/Vol] 0.7 10*3/uL0.0-0.8[facility] HospitalMonocytes (Bld) [#/Vol] Automated blood monocyte count0.0-0.8[facility] Monocytes/100 WBC Auto (Bld)Ordered By: Claire Choi on 08-01-2024 Monocytes/100 WBC (Bld)7.9 %.[facility] HospitalMonocytes/100 WBC (Bld)Automated monocyte %.[facility] HospitalNeutrophils Auto (Bld) [#/Vol]Ordered By: Claire Choi on 42-91-9361Xbtwmqydnzl (Bld) [#/Vol]5.4 10*3/uL1.8-7.7FWVUMedicine Harrison Community HospitalNeutrophils (Bld) [#/Vol]Neutrophils [#/volume] in Blood by Automated count1.8-7.7FWVUMedicine Harrison Community HospitalNeutrophils/100 WBC Auto (Bld)Ordered By: Claire Choi on 07-62-4159Kcaqateujal/100 WBC (Bld)59.7 %.[facility] HospitalNeutrophils/100 WBC (Bld)Automated neutrophil %.[facility] HospitalNo Panel InformationOrdered By: Claire Choi on 08-01-2024 Estimated GFR (CKD-EPI)15.173 mL/MinMercy Health Fairfield HospitalPharmacy Creatinine Clearance (Chem16.51[facility] HospitalProtein Electrophoresis M-SpikeNot observed g/dLNot [facility] HospitalProtein Electrophoresis NoteComment.[facility] Comment on above:Protein electrophoresis scan will follow via computer,mail, or cafeteria cashier delivery.Not observed g/dLNot ObservedMercy Health Fairfield Hospital Nucleated erythrocytes [Presence] in Blood by Automated countOrdered By: Claire Choi on 03-83-7041Benlqwnwm RBC Auto Ql (Bld)0.1 /100{WBC}0-0.5FWVUMedicine Harrison Community HospitalNucleated RBC Auto Ql (Bld)Nucleated erythrocytes [Presence] in Blood by Automated count0-0.5FWVUMed[facility] Platelet mean volume Auto (Bld) [Entitic vol]Ordered By: Claire Choi on 88-32-3042Znjslmzl mean volume (Bld) [Entitic vol]9.8 fL6.3-10.7FWVUMedicine Harrison Community HospitalPlatelets Auto (Bld) [#/Vol]Ordered By: Claire Choi on 40-66-6028Xwgimktun (Bld) [#/Vol]209 10*3/bY914-657CftivevijMercy Health Fairfield HospitalPotassium [Moles/volume] in Serum or PlasmaOrdered By: Claire Choi on 50-52-9489Oixsheqmq [Moles/Vol]4.9 mmol/L3.5-5.1FWVUMedicine Harrison Community HospitalProtein [Mass/volume] in Serum or PlasmaOrdered By: Claire Choi on 22-86-8443Frnmjnk [Mass/Vol]6.8 g/dL6.4-8.9[facility] HospitalProtein [Mass/Vol]6.5 g/dL6.0-8.5FW[facility] Protein [Mass/Vol]Protein [Mass/volume] in Serum or Plasma6.0-8.5FWVUMedicine Harrison Community HospitalRBC Auto (Bld) [#/Vol]Ordered By: Claire Choi on 16-62-2082CIZ (Bld) [#/Vol]3.93 10*6/uL3.60-5.00[facility] Hospitalerum free kappa light chain measurementOrdered By: Claire Choi on 04-27-1489Jqxwurzpatrjan light chains.kappa.free (S) [Mass/Vol]Immunoglobulin light chains.kappa.free [Mass/volume] in SerumHigh3.3-19.4FSalem City Hospitalerum globulin measurement (mass/volume)Ordered By: Claire Choi on 39-37-7369Xkczuhtu (S) [Mass/Vol]3.0 g/dL2.2-3.9[facility] HospitalGlobulin (S) [Mass/Vol]Serum globulin measurement (mass/volume) 2.2-3.9[facility] Hospitalerum immunofixation electrophoresis Ordered By: Claire Choi on 61-67-8588Jbrvl ImmunofixationComment.[facility] HospitalComment on above:No monoclonality detected.Serum immunofixation electrophoresisComment.[facility] Hospitalerum immunoglobulin free kappa light chains/immunoglobulin free lambda light chains Ordered By: Claire Choi on 20-30-8670Pcsalezuvdskvg light chains.kappa.free/Immunoglobulin light chains.lambda.free (S) [Mass ratio] Immunoglobulin light chains.kappa.free/Immunoglobulin light chains.lambda.free [Mass0.26-1.65[facility] HospitalComment on above:Performed at: [facility] [address] [id number] Director: Elpidio Delgado PhD, Phone: [phone] or plasma IgA measurement (mass/volume) Ordered By: Claire Choi on 96-19-1757YeB [Mass/Vol]IgA [Mass/volume] in Serum or Xipsav29-437IuoklhvmrEast Liverpool City Hospitalerum or plasma IgG measurement (mass/volume)Ordered By: Claire Choi on 35-46-3368BaI [Mass/Vol]IgG [Mass/volume] in Serum or Nwltyr593-1378YjkduxqthEast Liverpool City Hospitalerum or plasma IgM measurement (mass/volume)Ordered By: Claire Choi on 81-05-9034IqC [Mass/Vol]IgM [Mass/volume] in Serum or Iggdze50-615 [facility] HospitalComment on above:Performed at: [employer] [address] [id number] Director: Elpidio Delgado PhD, Phone: [phone] or plasma albumin measurement (mass/volume)Ordered By: Claire Choi on 36-43-2475Rkpsoyc [Mass/Vol]Albumin [Mass/volume] in Serum or Plasma2.9-4.4FSalem City Hospitalerum or plasma albumin/globulin mass ratioOrdered By: Claire Choi on 08-01-2024 Albumin/Globulin [Mass ratio]1.3 {ratio}[facility] Albumin/Globulin [Mass ratio]1.2 {ratio}0.7-1.7FWVUM[facility] Albumin/Globulin [Mass ratio]Serum or plasma albumin/globulin mass ratio0.7-1.7 [facility] Hospitalerum or plasma alpha 1 globulin measurement by electrophoresis (mass/volume)Ordered By: Claire Choi on 78-43-8644Xmzmh 1 globulin Elph [Mass/Vol]0.1 g/dL0.0-0.4FWVUMedicine Harrison Community HospitalAlpha 1 globulin Elph [Mass/Vol]Serum or plasma alpha 1 globulin measurement by electrophoresis (mass/volume)0.0-0.4FSalem City Hospitalerum or plasma alpha 2 globulin measurement by electrophoresis (mass/volume)Ordered By: Claire Choi on 62-02-0933Ypmad 2 globulin Elph [Mass/Vol]0.9 g/dL0.4-1.0 [facility] HospitalAlpha 2 globulin Elph [Mass/Vol]Serum or plasma alpha 2 globulin measurement by electrophoresis (mass/volume)0.4-1.0[facility] Hospitalerum or plasma anion gap determinationOrdered By: Claire Choi on 12-45-8841Dpkej gap [Moles/Vol]12.7 mmol/L6.0-15.0[facility] Hospitalerum or plasma beta globulin measurement by electrophoresis (mass/volume)Ordered By: Claire Choi on 46-90-7007Doij globulin Elph [Mass/Vol]0.9 g/dL0.7-1.3FWVUMedicine Harrison Community HospitalBeta globulin Elph [Mass/Vol]Serum or plasma beta globulin measurement by electrophoresis (mass/volume)0.7-1.3FSalem City Hospitalerum or plasma gamma globulin measurement by electrophoresis (mass/volume)Ordered By: Claire Choi on 70-55-6103Ajqdf globulin Elph [Mass/Vol]1.0 g/dL0.4-1.8 [facility] HospitalGamma globulin Elph [Mass/Vol]Serum or plasma gamma globulin measurement by electrophoresis (mass/volume)0.4-1.8[facility] Hospitalerum or plasma immunoglobulin free lambda light chains measurement (mass/volume)Ordered By: Claire Choi on 08-01-2024 Immunoglobulin light chains.lambda.free [Mass/Vol]Immunoglobulin light chains.lambda.free [Mass/volume] in Serum or PlasmaHigh5.7-26.3FSalem City Hospitalodium [Moles/volume] in Serum or PlasmaOrdered By: Claire Choi on 80-33-3859Gkleep [Moles/Vol]138 mmol/Q087-344SykybaavaMercy Health Fairfield HospitalUrea nitrogen [Mass/volume] in Serum or PlasmaOrdered By: Claire Choi on 73-88-3167Sxsz nitrogen [Mass/Vol]40 mg/dLHigh7-25 [facility] HospitalWBC Auto (Bld) [#/Vol]Ordered By: Claire Choi on 70-15-5343IID (Bld) [#/Vol]9.0 10*3/uL3.8-11.6FWVUMedicine Harrison Community HospitalWBC (Bld) [#/Vol]Leukocytes [#/volume] in Blood by Automated count 3.8-11.6FWVUMedicine Harrison Community HospitalErythrocyte distribution width Auto (RBC) [Ratio]on 98-59-7552Tgpttdkynja distribution width (RBC) [Ratio]12.6 % 11.0-15.0[facility] HospitalEstimated glomerular filtration rate (GFR) non- Americanon 82-08-8900SRC/1.73 sq M.predicted among non-blacks MDRD (S/P/Bld) [Vol rate/Area]17 mL/min/{1.73_m2}Low>=60Mer[facility] HospitalHematocrit Auto (Bld) [Volume fraction]on 44-00-0704Ukkltxldaz (Bld) [Volume fraction]40.7 %36.0-48.0[facility] Hemoglobin [Mass/volume] in Bloodon 14-76-7471Ggdjspqcop (Bld) [Mass/Vol]13.2 g/dL12.0-16.0[facility] HospitalLaboratory - Chemistry and Chemistry - challengeon 88-31-6326Ujnupafki Ql (U)NegativeNEGATIVEMercy Health Fairfield HospitalGlucose (U) [Mass/Vol]NegativeNEGATIVEMercy Health Fairfield HospitalKetones Ql (U)NegativeNEGATIVEMercy Health Fairfield HospitalpH (U)6.0 [pH]5.0-9.0[facility] [place] [facility] Hospitalpecific gravity (U) [Rel density]1.0201.005-1.025[facility] HospitalUrobilinogen Qn (U)0.2 {Marley'U}/dL0.2-1.0[facility] HospitalAlbumin [Mass/Vol]3.2 g/dL Low3.4-5.0[facility] HospitalCalcium [Mass/Vol]8.6 mg/dL8.5-10.1 [facility] HospitalChloride [Moles/Vol]103 mmol/O06-087OexyixlnqMercy Health Fairfield HospitalCO2 [Moles/Vol]26.2 mmol/L21.0-32.0[facility] HospitalCreatinine [Mass/Vol]2.67 mg/dLHigh0.55-1.02[facility] HospitalGFR/1.73 sq M.predicted MDRD (S/P/Bld) [Vol rate/Area]21 mL/min/{1.73_m2}Low>=60[facility] HospitalGlucose [Mass/Vol]139 mg/dPXotw62-454WxnmrfaxoMercy Health Fairfield HospitalMagnesium [Mass/Vol]2.0 mg/dL 1.8-2.4FWVUMedicine Harrison Community HospitalPotassium [Moles/Vol]5.2 mmol/LHigh 3.5-5.1FSalem City Hospitalodium [Moles/Vol]136 mmol/V073-154 [facility] HospitalUrate [Mass/Vol]6.4 mg/dLHigh2.6-6.0[facility] HospitalUrea nitrogen [Mass/Vol]38.0 mg/dLHigh7.0-18.0[facility] HospitalUrea nitrogen/Creatinine [Mass ratio]14.2 mg/mgMercy Health Fairfield HospitalLaboratory - Specimen informationon 01-90-0768Swaobxtxpc (U)CLEARCLEARFWVUMedicine Harrison Community HospitalColor (U)YELLOWYELLOWMercy Health Fairfield HospitalLaboratory - Urinalysison 05-28-2295Ecscmwhdp esterase Test strip Ql (U)MODERATEAbnormalNEGATIVEMercy Health Fairfield HospitalMucus Ql (Urine sed)TRACEAbnormalNONE SEENMercy Health Fairfield HospitalNitrite Ql (U)NegativeNEGATIVEMercy Health Fairfield HospitalProtein (U) [Mass/Vol]85.7 mg/dLHigh<=11.9[facility] HospitalProtein Ql (U)30 mg/dLAbnormal NEG/TRACEMercy Health Fairfield HospitalLeukocytes [#/volume] corrected for nucleated erythrocytes in Blood by Automated counon 32-39-5463XWQ corrected for nucl RBC Auto (Bld) [#/Vol]7.9 10 3/uL4.0-11.0[facility] MCH Auto (RBC) [Entitic mass]on 53-70-0555BOX (RBC) [Entitic mass]31.6 pg 26.7-34.0[facility] HospitalMCHC Auto (RBC) [Mass/Vol]on 16-67-1358UAGB (RBC) [Mass/Vol]32.4 g/dL29.9-35.2FWVUMedicine Harrison Community HospitalMCV Auto (RBC) [Entitic vol]on 37-27-2769GIC (RBC) [Entitic vol]97.4 fL 81.0-99.0[facility] HospitalNo Panel Informationon 94-34-2075Umtcd BacteriaMODERATE #/HPFAbnormalNONE [facility] HospitalUrine Culture ReflexedYESCCI Hospital LimaUrine Occult BloodTRACE-I NEGATIVEMercy Health Fairfield HospitalUrine Other CastsNONE SEEN #/LPFNONE [facility] HospitalUrine Other CrystalsNone Seen #/HPFNone [facility] CenterUrine Random Fswjymoofa319.05 mg/dL 20.00-300.00[facility] HospitalUrine RBCNONE SEEN #/HPF0-2 [facility] HospitalUrine Squamous Epithelial CellsFEW #/LPF AbnormalNONE/RAREMercy Health Fairfield HospitalUrine Transitional Epithelial CellsRARE #/LPFAbnormalNONE [facility] HospitalUrine QLJ50-36 #/HPFAbnormalNONE [facility]25-Hydroxy Vitamin D Total43.9 ng/mLMercy Health Fairfield HospitalComment on above:<20 ng/mL Vit D -<30 ng/mL Vit D qnojldkmbubf52-808 ng/mL Vit D sufficient>100 ng/mL Potential ToxicityParathyroid Hormone (Intact)105 pg/eUYevcnklu88-44JujxivjqcMercy Health Fairfield HospitalComment on above:Performed at: [facility] - [facility] [id number] [place], [place] [id number] Director: Elpidio Delgado PhD, Phone: [phone] Level3.9 mg/dL2.6-4.7FWVUMedicine [facility] Platelet mean volume Auto (Bld) [Entitic vol]on 95-11-0895Tqeyhgxu mean volume (Bld) [Entitic vol]12.1 fL9.5-13.5FWVUMedicine Harrison Community HospitalPlatelets Auto (Bld) [#/Vol]on 65-99-4371Fvwyakqry (Bld) [#/Vol]188 10 3/yC603-372 [facility] HospitalRBC Auto (Bld) [#/Vol]on 90-44-0110TDW (Bld) [#/Vol]4.18 10 6/uLLow4.20-5.40[facility] Hospitalerum or plasma anion gap determinationon 99-14-3813Yzvff gap [Moles/Vol]12.0 mmol/LFWVUMedicine Harrison Community HospitalUrine protein/creatinine ratioon 06-27-2024 Protein/Creatinine (U) [Ratio]0.45[facility] HospitalCholesterol in LDL Calc [Mass/Vol]on 16-76-6147Ceboamihwfc in LDL [Mass/Vol]68.6 mg/dL [facility] HospitalComment on above:<100 mg/dl MZHMSYH776-536 mg/dl NEAR OR ABOVE IAGNYLD937-910 mg/dl BORDERLINE FUNJ411-173 mg/dl HIGH>190 mg/dl VERY HIGHCholesterol in VLDL Calc [Mass/Vol]on 47-87-0463Qjsmaeapyua in VLDL [Mass/Vol]28.4 mg/dLMercy Health Fairfield HospitalEstimated glomerular filtration rate (GFR) non- Americanon 67-46-3568OWE/1.73 sq M.predicted among non-blacks MDRD (S/P/Bld) [Vol rate/Area]17 mL/min/{1.73_m2}Low>=60 [facility] HospitalLaboratory - Chemistry and Chemistry - challengeon 18-27-6707Nqupcjp [Mass/Vol]3.2 g/dLLow3.4-5.0[facility] HospitalCalcium [Mass/Vol]8.7 mg/dL8.5-10.1FWVUMedicine Harrison Community HospitalChloride [Moles/Vol]104 mmol/Z50-857BlolamyzbMercy Health Fairfield Hospital Cholesterol [Mass/Vol]154 mg/dL<=200[facility] HospitalCholesterol in HDL [Mass/Vol]57 mg/qV38-53HostatapoMercy Health Fairfield HospitalComment on above:> or =60 mg/dl - LOW CARDIOVASCULAR RISK<40 mg/dl - HIGH CARDIOVASCULAR RISKCO2 [Moles/Vol]26.2 mmol/L21.0-32.0[facility] Creatinine [Mass/Vol]2.71 mg/dLHigh0.55-1.02[facility] GFR/1.73 sq M.predicted MDRD (S/P/Bld) [Vol rate/Area]20 mL/min/{1.73_m2}Low>=60 [facility] HospitalGlucose [Mass/Vol]147 mg/oXNoul76-769ByoguovugMercy Health Fairfield HospitalPotassium [Moles/Vol]4.9 mmol/L3.5-5.1FSalem City Hospitalodium [Moles/Vol]140 mmol/Z508-000JhjywxetiMercy Health Fairfield HospitalTriglyceride [Mass/Vol]142 mg/dL<=150[facility] HospitalUrea nitrogen [Mass/Vol]31.0 mg/dLHigh7.0-18.0[facility] HospitalUrea nitrogen/Creatinine [Mass ratio]11.4 mg/mgMercy Health [facility] Hospital Microalbumin [Mass/volume] in Urineon 40-50-6501Vhtbtyh DL <= 20 mg/L (U) [Mass/Vol]24.5 mg/dL<=30.0[facility] HospitalNo Panel Information on 829425-Nnmagto Vitamin D Total46.7 ng/mLMercy Health Fairfield HospitalComment on above:<20 ng/mL Vit D spkucginj33-<30 ng/mL Vit D iizowgxvvlfp47-441 ng/mL Vit D sufficient>100 ng/mL Potential ToxicityC-Peptide 3.7 ng/mL1.1-4.4Fire[facility] Medical CenterComment on above:C-Peptide reference interval is for fasting patients.Performed at: - [facility] [address] [id number] Director: Elpidio Delgado PhD, Phone: [phone] Level4.1 mg/dL2.6-4.7FWVUMedicine Harrison Community HospitalUrine Random Pwuyxsqxwh305.38 mg/dL20.00-300.00[facility] Hospitalerum or plasma anion gap determinationon 55-57-7476Tfdwj gap [Moles/Vol]14.7 mmol/L [facility] Hospitalerum or plasma total cholesterol/high density lipoprotein (HDL) cholesterol mass wilfred 40-53-0338Dtwwkgyzsxk.total/Cholesterol in HDL [Mass ratio]2.7 {ratio}[facility] HospitalComment on above:3.3 - 4.4 LOW RISK4.4 - 7.1 AVERAGE RISK7.1 - 11.0 MODERATE RISK>11.0 HIGH RISKUrine microalbumin/creatinine mass ratioon 04-96-8032Cqstfzm/Creatinine DL <= 20 mg/L (U) [Mass ratio]104.9 mg/gHigh0.0-29.9[facility] HospitalComment on above:NO MICROALBUMINURIA 0-29 MG/GCLINICAL MICROALBUMINURIA 30-300 MG/GMACROALBUMINURIA >300 MG/GAlanine aminotransferase [Enzymatic activity/volume] in Serum or PlasmaOrdered By: Misti Connolly on 24-63-4651LML [Catalytic activity/Vol]12 U/L7-52[facility] HospitalAlbumin [Mass/volume] in Serum or PlasmaOrdered By: Misti Connolly on 39-30-6930Sgmrpga [Mass/Vol]3.4 g/dL2.9-4.4FWVUMedicine Harrison Community HospitalAlbumin [Mass/volume] in Serum or Plasma by Bromocresol green (BCG) dye binding methoOrdered By: Misti Connolly on 44-53-9544Gayrbmf BCG dye [Mass/Vol]3.6 g/dL3.5-5.7FWVUMedicine Harrison Community HospitalAlkaline phosphatase [Enzymatic activity/volume] in Serum or PlasmaOrdered By: Misti Connolly on 28-50-7898KJK [Catalytic activity/Vol]106 U/BFwev22-115BvaguzhcaMercy Health Fairfield HospitalAspartate aminotransferase [Enzymatic activity/volume] in Serum or PlasmaOrdered By: Misti Mohsen on 42-48-6051EZG [Catalytic activity/Vol]15 U/Y01-05FutulbzdxMercy Health Fairfield HospitalBasophils Auto (Bld) [#/Vol]Ordered By: Misti Connolly on 04-25-2024 Basophils (Bld) [#/Vol]0.0 10*3/uL0.0-0.2FWVUMedicine Harrison Community Hospital Basophils/100 WBC Auto (Bld)Ordered By: Misti Connolly on 31-09-6746Pnzqfwdyt/100 WBC (Bld)0.6 %.[facility] HospitalBilirubin.total [Mass/volume] in Serum or PlasmaOrdered By: Misti Connolly on 03-16-5000Axxuarasf [Mass/Vol]0.3 mg/dL0.3-1.0[facility] HospitalCalcium [Mass/volume] in Serum or PlasmaOrdered By: Misti Connolly on 24-95-8891Ytofmnf [Mass/Vol]8.6 mg/dL8.6-10.3 [facility] HospitalCarbon dioxide, total [Moles/volume] in Serum or PlasmaOrdered By: Misti Connolly on 34-69-2619PN2 [Moles/Vol]20.5 mmol/LLow 21.0-31.0[facility] HospitalChloride [Moles/volume] in Serum or PlasmaOrdered By: Misti Connolly on 24-69-7195Byozudku [Moles/Vol]108 mmol/LHigh 98-107[facility] HospitalCreatinine [Mass/volume] in Serum or PlasmaOrdered By: Misti Connolly on 48-95-4143Fnbazxnfqp [Mass/Vol]2.46 mg/dLHigh 0.60-1.20[facility] HospitalEosinophils Auto (Bld) [#/Vol]Ordered By: Misti Connolly on 34-81-9967Hldhmrgxllj (Bld) [#/Vol]0.1 10*3/uL0.0-0.45 [facility] HospitalEosinophils/100 WBC Auto (Bld)Ordered By: Misti Connolly on 46-07-6143Uwfsjmhkols/100 WBC (Bld)1.4 %.[facility] HospitalErythrocyte distribution width Auto (RBC) [Ratio]Ordered By: Misti Mohsen on 93-20-7795Ddpghxenptw distribution width (RBC) [Ratio]14.0 %11.9-15.3 [facility] HospitalGlucose [Mass/volume] in Serum or PlasmaOrdered By: Misti Connolly on 73-97-1931Pwgbjrp [Mass/Vol]242 mg/xTPqzb63-838YrmsmhrhkMercy Health Fairfield HospitalComment on above:ADA recommended reference rangeRandom Glucose Reference Range is dependent on time and content of last meal. Glucose of more than 200 mg/dL in a nonstressed, ambulatory subject supports the diagnosisof Diabetes Mellitus.Hematocrit Auto (Bld) [Volume fraction]Ordered By: Misti Connolly on 62-34-5469Fhxqnrrukg (Bld) [Volume fraction]37.2 %34.0-46.4 [facility] HospitalHemoglobin [Mass/volume] in BloodOrdered By: Misti Connolly on 63-93-3553Vsycgymgqa (Bld) [Mass/Vol]12.4 g/dL11.8-15.4 [facility] HospitalIgA [Mass/volume] in Serum or PlasmaOrdered By: Claire Choi on 60-60-2867WqW [Mass/Vol]214 mg/tF03-213UnkjigavyMercy Health Fairfield HospitalIgG [Mass/volume] in Serum or PlasmaOrdered By: Claire Choi on 66-91-2914GlC [Mass/Vol]906 mg/cU834-6335ZvlkmvpnfMercy Health Fairfield HospitalIgM [Mass/volume] in Serum or PlasmaOrdered By: Claire Choi on 6705FkI [Mass/Vol]165 mg/aF39-732CtbvllrdxMercy Health Fairfield HospitalComment on above: Performed at: [address] [id number] Director: Elpidio Delgado PhD, Phone: [phone] light chains.kappa.free [Mass/volume] in SerumOrdered By: Misti Connolly on 04-25-2024 Immunoglobulin light chains.kappa.free (S) [Mass/Vol]48.0 mg/LHigh3.3-19.4 [facility] HospitalImmunoglobulin light chains.kappa.free/Immunoglobulin light chains.lambda.free [MassOrdered By: Misti Mohsen on 25-95-0851Fydegefavmxxjr light chains.kappa.free/Immunoglobulin light chains.lambda.free (S) [Mass ratio]1.580.26-1.65[facility] HospitalComment on above:Performed at: - [facility] [id number] Director: Elpidio Delgado PhD, Phone: [phone] Immunoglobulin light chains.lambda.free [Mass/volume] in Serum or PlasmaOrdered By: Misti Connolly on 77-93-5198Yamztserdfbqqk light chains.lambda.free [Mass/Vol]30.4 mg/LHigh5.7-26.3FWVUMedicine Harrison Community HospitalLeukocytes [#/volume] corrected for nucleated erythrocytes in Blood by Automated coun Ordered By: Misti Connolly on 18-79-3849SFI corrected for nucl RBC Auto (Bld) [#/Vol]7.9 10*3/uL3.8-11.6FWVUMedicine Harrison Community HospitalLymphocytes Auto (Bld) [#/Vol]Ordered By: Misti Connolly on 76-19-5348Pyltsgovasi (Bld) [#/Vol]2.5 10*3/uL1.00-4.8[facility] HospitalLymphocytes/100 WBC Auto (Bld) Ordered By: Misti Connolly on 38-90-8981Upwhhtksavd/100 WBC (Bld)31.0 %.[facility] Auto (RBC) [Entitic mass]Ordered By: Misti Connolly on 17-72-9009THQ (RBC) [Entitic mass]32.1 pg24.7-34.3FProMedica Defiance Regional HospitalHC Auto (RBC) [Mass/Vol]Ordered By: Misti Connolly on 43-70-7493OHXU (RBC) [Mass/Vol]33.3 g/dL32.0-35.0[facility] HospitalMCV Auto (RBC) [Entitic vol]Ordered By: Misti Mohsen on 89-40-6897MVR (RBC) [Entitic vol]96.4 uO91-841GyxfwqdqzMercy Health Fairfield HospitalMonocytes Auto (Bld) [#/Vol] Ordered By: Misti Mohsen on 83-36-1914Mpsvxilwa (Bld) [#/Vol]0.5 10*3/uL0.0-0.8 [facility] HospitalMonocytes/100 WBC Auto (Bld)Ordered By: Misti Connolly on 34-98-9757Rlkgrgsly/100 WBC (Bld)6.3 %.[facility] HospitalNeutrophils Auto (Bld) [#/Vol]Ordered By: Misti Connolly on 04-25-2024 Neutrophils (Bld) [#/Vol]4.8 10*3/uL1.8-7.7FWVUMedicine Harrison Community Hospital Neutrophils/100 WBC Auto (Bld)Ordered By: Misti Connolly on 04-25-2024 Neutrophils/100 WBC (Bld)60.7 %.[facility] HospitalNo Panel InformationOrdered By: Misti Mohsen on 70-67-1568Ancgfktlq GFR (CKD-EPI)19.217 mL/MinMercy Health Fairfield HospitalPharmacy Creatinine Clearance (Chem20.35 [facility] HospitalProtein Electrophoresis M-SpikeNot observed g/dLNot ObservedMercy Health Fairfield HospitalProtein Electrophoresis NoteSee comment.[facility] HospitalComment on above:Protein electrophoresis scan will follow via computer,mail, or cafeteria cashier delivery.Performed at: [address] [id number] Director: Elpidio Delgado PhD, Phone: [phone] ImmunofixationSee comment.[facility] HospitalComment on above:No monoclonality detected.Nucleated erythrocytes [Presence] in Blood by Automated countOrdered By: Misti Connolly on 22-96-1629Tmbfvhnlg RBC Auto Ql (Bld)0.1 /100{WBC}0-0.5FWVUMedicine Harrison Community HospitalPlatelet mean volume Auto (Bld) [Entitic vol]Ordered By: Misti Connolly on 37-59-9965Fvmfdmro mean volume (Bld) [Entitic vol]10.2 fL6.3-10.7FWVUMedicine Harrison Community HospitalPlatelets Auto (Bld) [#/Vol]Ordered By: Misti Connolly on 16-12-5242Ygqlkyukp (Bld) [#/Vol]161 10*3/gO225-358SciagniubMercy Health Fairfield HospitalPotassium [Moles/volume] in Serum or PlasmaOrdered By: Misti Connolly on 05-62-9726Ytofxfpqe [Moles/Vol]4.6 mmol/L 3.5-5.1FWVUMedicine Harrison Community HospitalProtein [Mass/volume] in Serum or Plasma Ordered By: Misti Connolly on 17-90-1583Moretvv [Mass/Vol]6.3 g/dLLow6.4-8.9 [facility] HospitalProtein [Mass/Vol]6.1 g/dL6.0-8.5FWVUMedicine Harrison Community HospitalRBC Auto (Bld) [#/Vol]Ordered By: Misti Connolly on 94-19-6597OXX (Bld) [#/Vol]3.86 10*6/uL3.60-5.00[facility] [place] [facility] Hospitalerum globulin measurement by calculation (mass/volume)Ordered By: Misti Connolly on 29-80-5358Hpraofau (S) [Mass/Vol]2.7 g/dL2.2-3.9[facility] Hospitalerum or plasma albumin/globulin mass ratioOrdered By: Misti Connolly on 42-75-5889Uaguahb/Globulin [Mass ratio]1.3 {ratio}0.7-1.7FSalem City Hospitalerum or plasma alpha 1 globulin measurement by electrophoresis (mass/volume)Ordered By: Misti Connolly on 60-35-6710Tzhjs 1 globulin Elph [Mass/Vol]0.1 g/dL0.0-0.4FSalem City Hospitalerum or plasma alpha 2 globulin measurement by electrophoresis (mass/volume)Ordered By: Misti Connolly on 72-82-9297Uvwns 2 globulin Elph [Mass/Vol]0.9 g/dL0.4-1.0 [facility] Hospitalerum or plasma anion gap determinationOrdered By: Misti Connolly on 90-63-0714Kjuuz gap [Moles/Vol]12.1 mmol/L6.0-15.0[facility] Hospitalerum or plasma beta globulin measurement by electrophoresis (mass/volume)Ordered By: Misti Mohsen on 21-30-0279Bnzs globulin Elph [Mass/Vol]0.8 g/dL0.7-1.3FSalem City Hospitalerum or plasma gamma globulin measurement by electrophoresis (mass/volume)Ordered By: Misti Mohsen on 49-94-4821Dpcln globulin Elph [Mass/Vol]0.9 g/dL0.4-1.8 [facility] [place] [facility] Hospitalodium [Moles/volume] in Serum or PlasmaOrdered By: Misti Mohsen on 85-84-8612Ktrzmz [Moles/Vol]136 mmol/K258-677ApxkbtqqbMercy Health Fairfield HospitalUrea nitrogen [Mass/volume] in Serum or PlasmaOrdered By: Misti Mohsen on 49-80-1612Surj nitrogen [Mass/Vol]31 mg/dLHigh7-25[facility] HospitalWBC Auto (Bld) [#/Vol]Ordered By: Misti Mohsen on 87-36-5766MBJ (Bld) [#/Vol]7.9 10*3/uL3.8-11.6FWVUMedicine [facility] Community Hospital Laboratory - Chemistry and Chemistry - challengeon 41-62-9190Jufuqnxos Ql (U) NegativeMercy Health Fairfield HospitalGlucose (U) [Mass/Vol]NegativeMercy Health Fairfield HospitalKetones Ql (U)NegativeMercy Health Fairfield Hospital pH (U)6.0 [pH][facility] [place] [facility] Hospitalpecific gravity (U) [Rel density]1.005[facility] HospitalUrobilinogen (U) [Mass/Vol]0 mg/dL [facility] HospitalLaboratory - Specimen informationon 04-12-2024 Appearance (U)cloudyMercy Health Fairfield HospitalColor (U)yellowMercy Health Fairfield HospitalLaboratory - Urinalysison 53-83-0710Uxquhbbnp esterase Test strip Ql (U)70+[facility] HospitalNitrite Ql (U)Negative [facility] HospitalProtein Ql (U)30[facility] HospitalNo Panel Informationon 94-72-8971Sjfmc Occult BloodNegativeMercy Health Fairfield HospitalUrine culture routineOrdered By: Curt Clark on 47-43-8949Sqxmcxlq identified Cx Nom (U)2 DaysMercy Health Fairfield Hospital Glucose mean value [Mass/volume] in Blood Estimated from glycated hemoglobinon 08-93-5007Bayhpqw glucose Estimated from glycated hemoglobin (Bld) [Mass/Vol]166 mg/dLMercy Health Fairfield HospitalLaboratory - Hematology and Cell countson 86-21-7668BbE6w (Bld) [Mass fraction]7.4 %4.5-6.2FWVUMedicine Harrison Community HospitalComment on above:ADA RECOMMENDED LIMIT 4.0 - 6.0ADA THERAPEUTIC TARGET < 7.0ACTION SUGGESTED> 7.0Alanine aminotransferase [Enzymatic activity/volume] in Serum or PlasmaOrdered By: Claire Choi on 32-50-4025OSY [Catalytic activity/Vol]8 U/L7-52[facility] HospitalAlbumin [Mass/volume] in Serum or PlasmaOrdered By: Claire Choi on 36-70-8402Ghughci [Mass/Vol]3.4 g/dL2.9-4.4FWVUMedicine Harrison Community HospitalAlbumin [Mass/volume] in Serum or Plasma by Bromocresol green (BCG) dye binding methoOrdered By: Claire Choi on 61-18-2862Wwwxmei BCG dye [Mass/Vol]3.8 g/dL3.5-5.7FWVUMedicine Harrison Community HospitalAlkaline phosphatase [Enzymatic activity/volume] in Serum or PlasmaOrdered By: Claire Choi on 14-70-8691PPI [Catalytic activity/Vol]103 U/E72-299ZyycgdjfiMercy Health Fairfield HospitalAspartate aminotransferase [Enzymatic activity/volume] in Serum or PlasmaOrdered By: Claire Choi on 01-17-2024 AST [Catalytic activity/Vol]12 U/W06-21WjxebqzwwMercy Health Fairfield Hospital Basophils Auto (Bld) [#/Vol]Ordered By: Claire Choi on 68-66-9851Jqjuhpxzp (Bld) [#/Vol]0.1 10*3/uL0.0-0.2FWVUMedicine Harrison Community HospitalBasophils/100 WBC Auto (Bld)Ordered By: Claire Choi on 97-99-9627Bqnhstjtk/100 WBC (Bld) 0.6 %.[facility] HospitalBilirubin.total [Mass/volume] in Serum or PlasmaOrdered By: Claire Choi on 76-48-2374Jjrfmqlor [Mass/Vol]0.5 mg/dL 0.3-1.0[facility] HospitalCalcium [Mass/volume] in Serum or Plasma Ordered By: Claire Choi on 51-77-8523Pqwbujp [Mass/Vol]8.6 mg/dL8.6-10.3 [facility] HospitalCarbon dioxide, total [Moles/volume] in Serum or PlasmaOrdered By: Claire Choi on 80-49-4576SH7 [Moles/Vol]20.0 mmol/L 21.0-31.0[facility] HospitalChloride [Moles/volume] in Serum or PlasmaOrdered By: Claire Choi on 72-45-5541Daloqomf [Moles/Vol]112 mmol/L 98-107[facility] HospitalCreatinine [Mass/volume] in Serum or PlasmaOrdered By: Claire Choi on 59-37-6777Lnrlmfoeme [Mass/Vol]2.31 mg/dL 0.60-1.20[facility] HospitalEosinophils Auto (Bld) [#/Vol]Ordered By: Claire Choi on 95-33-0056Dfzrimrweil (Bld) [#/Vol]0.2 10*3/uL0.0-0.45 [facility] HospitalEosinophils/100 WBC Auto (Bld)Ordered By: Claire Choi on 40-89-9318Rnjlbwwifku/100 WBC (Bld)2.0 %.[facility] HospitalErythrocyte distribution width Auto (RBC) [Ratio]Ordered By: Claire Choi on 85-18-1950Ndqupalueoc distribution width (RBC) [Ratio]13.3 %11.9-15.3FWVUMedicine Harrison Community HospitalGlobulin Calc (S) [Mass/Vol]Ordered By: Claire Choi on 46-48-5436Yslevgeb (S) [Mass/Vol]2.8 g/dLMercy Health Fairfield HospitalGlucose [Mass/volume] in Serum or PlasmaOrdered By: Claire Chio on 88-08-5135Ophetio [Mass/Vol]150 mg/nA74-814JsisxyddfMercy Health Fairfield HospitalComment on above:ADA recommended reference rangeRandom Glucose Reference Range is dependent on time and content of last meal. Glucose of more than 200 mg/dL in a nonstressed, ambulatory subject supports the diagnosisof Diabetes Mellitus.Hematocrit Auto (Bld) [Volume fraction]Ordered By: Claire Choi on 87-36-1549Jpvuibcjap (Bld) [Volume fraction]37.6 %34.0-46.4 [facility] HospitalHemoglobin [Mass/volume] in BloodOrdered By: Claire Choi on 86-02-7190Hwflyjikxm (Bld) [Mass/Vol]12.7 g/dL11.8-15.4 [facility] HospitalIgA [Mass/volume] in Serum or PlasmaOrdered By: Claire Choi on 09-89-6154CrY [Mass/Vol]214 mg/yM11-133VpgakvmhiMercy Health Fairfield HospitalIgG [Mass/volume] in Serum or PlasmaOrdered By: Claire Choi on 20-59-8694UnC [Mass/Vol]896 mg/uK040-9581KafskwbtvMercy Health Fairfield HospitalIgM [Mass/volume] in Serum or PlasmaOrdered By: Claire Choi on 57-02-6004MnV [Mass/Vol]187 mg/uD32-073KdoozadzkMercy Health Fairfield HospitalComment on above: Performed at: [facility] [id number] Director: Elpidio Delgado PhD, Phone: [phone] light chains.kappa.free [Mass/volume] in SerumOrdered By: Claire Choi on 53-40-5126Lmiqgwiyrsjyxl light chains.kappa.free (S) [Mass/Vol]39.5 mg/L3.3-19.4 [facility] HospitalImmunoglobulin light chains.kappa.free/Immunoglobulin light chains.lambda.free [MassOrdered By: Claire Choi on 18-43-6515Odnsaxzrzjqkwb light chains.kappa.free/Immunoglobulin light chains.lambda.free (S) [Mass ratio]1.73 0.26-1.65[facility] HospitalComment on above:Performed at: [facility] [id number] Director: Elpidio Delgado PhD, Phone: [phone] light chains.lambda.free [Mass/volume] in Serum or PlasmaOrdered By: Claire Choi on 01-17-2024 Immunoglobulin light chains.lambda.free [Mass/Vol]22.8 mg/L5.7-26.3FWVUMedicine Harrison Community HospitalLeukocytes [#/volume] corrected for nucleated erythrocytes in Blood by Automated counOrdered By: Claire Choi on 56-77-3807IJB corrected for nucl RBC Auto (Bld) [#/Vol]8.5 10*3/uL3.8-11.6 [facility] HospitalLymphocytes Auto (Bld) [#/Vol]Ordered By: Claire Choi on 37-35-2543Nqasqzrvcpj (Bld) [#/Vol]2.2 10*3/uL1.00-4.8 [facility] HospitalLymphocytes/100 WBC Auto (Bld)Ordered By: Claire Choi on 43-99-1827Tjixjxfnhvz/100 WBC (Bld)25.4 %.[facility] Auto (RBC) [Entitic mass]Ordered By: Claire Choi on 28-90-0357NME (RBC) [Entitic mass]31.9 pg24.7-34.3FProMedica Defiance Regional HospitalHC Auto (RBC) [Mass/Vol]Ordered By: Claire Choi on 47-62-1756ZMZH (RBC) [Mass/Vol]33.7 g/dL32.0-35.0[facility] HospitalMCV Auto (RBC) [Entitic vol]Ordered By: Claire Choi on 30-56-8306LUD (RBC) [Entitic vol]94.8 lE33-067TqwtiijmtMercy Health Fairfield HospitalMonocytes Auto (Bld) [#/Vol]Ordered By: Claire Choi on 17-95-6736Bvpbarpgi (Bld) [#/Vol] 0.6 10*3/uL0.0-0.8[facility] HospitalMonocytes/100 WBC Auto (Bld) Ordered By: Claire Choi on 21-89-4502Lojmaugmb/100 WBC (Bld)7.4 %. [facility] HospitalNeutrophils Auto (Bld) [#/Vol]Ordered By: Claire Choi on 38-05-9513Nfqhxfknmtc (Bld) [#/Vol]5.5 10*3/uL1.8-7.7 [facility] HospitalNeutrophils/100 WBC Auto (Bld)Ordered By: Claire Choi on 54-24-8718Rxqglxluors/100 WBC (Bld)64.6 %.[facility] HospitalNo Panel InformationOrdered By: Claire Choi on 78-97-2737Lubunzxpr GFR (CKD-EPI)20.724 mL/MinMercy Health Fairfield Hospital Pharmacy Creatinine Clearance (Chem21.10[facility] HospitalProtein Electrophoresis M-SpikeComment: g/dLNot ObservedMercy Health Fairfield HospitalComment on above:SPE shows a beta gamma band of restricted mobility due tofibrinogen in the plasma sample submitted.Protein Electrophoresis NoteSee comment.[facility] HospitalComment on above:Protein electrophoresis scan will follow via computer,mail, or cafeteria cashier delivery.Performed at: [address] [id number] Director: Elpidio Delgado PhD, Phone: [phone] ImmunofixationSee comment.[facility] HospitalComment on above:No monoclonality detected.Nucleated erythrocytes [Presence] in Blood by Automated countOrdered By: Claire Choi on 14-58-7784Puhzkmncm RBC Auto Ql (Bld)0.0 /100{WBC}0-0.5FWVUMedicine Harrison Community HospitalPlatelet mean volume Auto (Bld) [Entitic vol]Ordered By: Claire Choi on 70-37-1014Zcqjfhpn mean volume (Bld) [Entitic vol]10.1 fL6.3-10.7FWVUMedicine Harrison Community HospitalPlatelets Auto (Bld) [#/Vol]Ordered By: Claire Choi on 11-85-6076Zzvdjnsyt (Bld) [#/Vol]201 10*3/qR466-883HtkjhtjmvMercy Health Fairfield HospitalPotassium [Moles/volume] in Serum or PlasmaOrdered By: Claire Choi on 01-17-2024 Potassium [Moles/Vol]4.6 mmol/L3.5-5.1FWVUMedicine Harrison Community HospitalProtein [Mass/volume] in Serum or PlasmaOrdered By: Claire Choi on 01-17-2024 Protein [Mass/Vol]6.6 g/dL6.4-8.9[facility] HospitalProtein [Mass/Vol]6.5 g/dL6.0-8.5FWVUMedicine Harrison Community HospitalRBC Auto (Bld) [#/Vol] Ordered By: Claire Choi on 67-58-9740KSL (Bld) [#/Vol]3.96 10*6/uL 3.60-5.00[facility] Hospitalerum globulin measurement (mass/volume)Ordered By: Claire Choi on 09-43-6003Qxlfuvam (S) [Mass/Vol] 3.1 g/dL2.2-3.9[facility] Hospitalerum or plasma albumin/globulin mass ratioOrdered By: Claire Choi on 73-01-7565Geloyel/Globulin [Mass ratio]1.4 {ratio}[facility] HospitalAlbumin/Globulin [Mass ratio] 1.1 {ratio}0.7-1.7FSalem City Hospitalerum or plasma alpha 1 globulin measurement by electrophoresis (mass/volume)Ordered By: Claire Choi on 58-33-2664Bynlg 1 globulin Elph [Mass/Vol]0.1 g/dL0.0-0.4FSalem City Hospitalerum or plasma alpha 2 globulin measurement by electrophoresis (mass/volume)Ordered By: Claire Choi on 83-58-1547Gvubx 2 globulin Elph [Mass/Vol]0.8 g/dL0.4-1.0[facility] Hospitalerum or plasma anion gap determinationOrdered By: Claire Choi on 16-14-2897Uryxs gap [Moles/Vol]10.6 mmol/L6.0-15.0[facility] Hospitalerum or plasma beta globulin measurement by electrophoresis (mass/volume)Ordered By: Claire Choi on 14-23-9587Wyjy globulin Elph [Mass/Vol]0.9 g/dL0.7-1.3 [facility]er[facility] plasma gamma globulin measurement by electrophoresis (mass/volume)Ordered By: Claire Choi on 67-05-2551Swyhj globulin Elph [Mass/Vol]1.2 g/dL0.4-1.8[facility] Hospitalodium [Moles/volume] in Serum or PlasmaOrdered By: Claire Choi on 01-17-2024 Sodium [Moles/Vol]138 mmol/F527-379TgyprysyuMercy Health Fairfield HospitalUrea nitrogen [Mass/volume] in Serum or PlasmaOrdered By: Claire Choi on 07-32-8378Bgnt nitrogen [Mass/Vol]41 mg/dL7-25[facility] WBC Auto (Bld) [#/Vol]Ordered By: Claire Choi on 89-31-8925TCO (Bld) [#/Vol]8.5 10*3/uL3.8-11.6FWVUMedicine Harrison Community HospitalAutomated epithelial cells count in urine sediment (number/area)on 42-32-4441Exkahykwxb cells Auto (Urine sed) [#/Area]RARE #/LPFNONE/RAREMercy Health [facility] Hospital Automated leukocytes count in urine sediment (number/area)on 42-02-9862MAA Auto (Urine sed) [#/Area]0-2 #/HPF0-2FWVUMedicine Harrison Community HospitalAutomated urine specific gravity by refractometryon 38-41-6527Yeadozsc gravity Refractometry automated (U) [Rel density]1.0101.005-1.025[facility] Bilirubin Auto test strip (U) [Mass/Vol]on 31-45-8237Ybitcldql (U) [Mass/Vol] NegativeNEGATIVEMercy Health Fairfield HospitalCasts typing in urine sediment by light microscopyon 01-36-8430Jqxvc LM Nom (Urine sed)NONE SEEN #/LPFNONE SEEN [facility] HospitalColor Auto (U)on 32-17-8242Wkotq (U)LT. YELLOW YELLOWMercy Health Fairfield HospitalErythrocyte distribution width Auto (RBC) [Ratio]on 07-15-3037Wafyledzfcs distribution width (RBC) [Ratio]12.5 %11.0-15.0 [facility] HospitalEstimated glomerular filtration rate (GFR) non- Americanon 21-04-5148XRK/1.73 sq M.predicted among non-blacks MDRD (S/P/Bld) [Vol rate/Area]18 mL/min/{1.73_m2}>=60[facility] HospitalHematocrit Auto (Bld) [Volume fraction]on 87-07-7515Qfcluucthq (Bld) [Volume fraction]40.2 %36.0-48.0[facility] HospitalHemoglobin [Mass/volume] in Bloodon 81-79-2490Jofutzsnxs (Bld) [Mass/Vol]12.9 g/dL12.0-16.0 [facility] HospitalKetones Auto test strip (U) [Mass/Vol]on 01-27-4624Izsszwc (U) [Mass/Vol]NegativeNEGATIVEMercy Health Fairfield HospitalLaboratory - Chemistry and Chemistry - challengeon 62-48-2314Angqblu [Mass/Vol]3.2 g/dL3.4-5.0[facility] HospitalCalcium [Mass/Vol]8.4 mg/dL8.5-10.1FWVUMedicine Harrison Community HospitalChloride [Moles/Vol]108 mmol/L 98-107[facility] HospitalCO2 [Moles/Vol]24.3 mmol/L21.0-32.0 [facility] HospitalCreatinine [Mass/Vol]2.57 mg/dL0.55-1.02 [facility] HospitalGFR/1.73 sq M.predicted MDRD (S/P/Bld) [Vol rate/Area]22 mL/min/{1.73_m2}>=60[facility] HospitalGlucose [Mass/Vol]88 mg/bV48-816CvilyoirfMercy Health Fairfield HospitalMagnesium [Mass/Vol]2.1 mg/dL1.8-2.4FWVUMedicine Harrison Community HospitalPotassium [Moles/Vol]4.4 mmol/L 3.5-5.1FSalem City Hospitalodium [Moles/Vol]141 mmol/A214-556 [facility] HospitalUrate [Mass/Vol]5.9 mg/dL2.6-6.0[facility] HospitalUrea nitrogen [Mass/Vol]32.0 mg/dL7.0-18.0[facility] HospitalUrea nitrogen/Creatinine [Mass ratio]12.5 mg/mgMercy Health Fairfield HospitalLaboratory - Urinalysison 18-64-7662Zinyfsz (U) [Mass/Vol]27.1 mg/dL<=11.9[facility] HospitalLeukocytes [#/volume] corrected for nucleated erythrocytes in Blood by Automated counon 82-88-3167QLH corrected for nucl RBC Auto (Bld) [#/Vol]8.3 10 3/uL4.0-11.0[facility] HospitalH Auto (RBC) [Entitic mass]on 21-41-7155EHO (RBC) [Entitic mass] 31.5 pg26.7-34.0[facility] HospitalMCHC Auto (RBC) [Mass/Vol]on 66-78-1434VOTQ (RBC) [Mass/Vol]32.1 g/dL29.9-35.2FWVUMedicine Harrison Community HospitalMCV Auto (RBC) [Entitic vol]on 80-95-4735YZC (RBC) [Entitic vol]98.3 fL 81.0-99.0[facility] HospitalMucus LM Ql (Urine sed)on 12-27-2023 Mucus Ql (Urine sed)NONE SEENNONE SEENMercy Health Fairfield HospitalNo Panel Informationon 627579-Zbqxgdr Vitamin D Total42.6 ng/mLMercy Health Fairfield HospitalComment on above:<20 ng/mL Vit D -<30 ng/mL Vit D xxlkucbmtdak04-842 ng/mL Vit D sufficient>100 ng/mL Potential Toxicity Parathyroid Hormone (Intact)78 pg/fF96-71VdhztdbbfMercy Health Fairfield Hospital Comment on above:Performed at: [place] [id number] Director: Elpidio Delgado PhD, Phone: [phone] Level 4.2 mg/dL2.6-4.7FWVUMedicine Harrison Community HospitalUrine Random Ijudyxmhgy86.98 mg/dL20.00-300.00[facility] HospitalPlatelet mean volume Auto (Bld) [Entitic vol]on 36-08-0388Gbtyrylk mean volume (Bld) [Entitic vol]11.3 fL 9.5-13.5FWVUMedicine Harrison Community HospitalPlatelets Auto (Bld) [#/Vol]on 97-66-1617Jkmicxxeg (Bld) [#/Vol]195 10 3/bQ609-806VxcghbovhMercy Health Fairfield HospitalProtein Auto test strip (U) [Mass/Vol]on 27-78-5006Ipxduet (U) [Mass/Vol] NegativeNEG/TRACEMercy Health Fairfield HospitalRBC Auto (Bld) [#/Vol]on 28-01-8841XTW (Bld) [#/Vol]4.09 10 6/uL4.20-5.40East Liverpool City Hospitalerum or plasma anion gap determinationon 36-67-5046Vrlkn gap [Moles/Vol] 13.1 mmol/LFSalem City Hospitalpecific gravity Auto test strip (U) [Rel density]on 61-18-3562Ufhnshye gravity (U) [Rel density]CLEARCLEARFWVUMedicine Harrison Community HospitalUrine bacteria detection by automated methodon 12-27-2023 Bacteria Auto Ql (U)TRACE #/HPFNONE SEENMercy Health Fairfield HospitalUrine glucose measurement by test strip (mass/volume)on 29-69-8803Yfydson Test strip (U) [Mass/Vol]NegativeNEGATIVEMercy Health Fairfield HospitalUrine hemoglobin detection by automated test stripon 39-34-8730Pgmtjqrimu Auto test strip Ql (U) NegativeNEGWVUMedicine Barnesville HospitalUrine nitrite detection by automated test stripon 82-35-8913Axhccez Auto test strip Ql (U)NegativeNEGSumma HealthUrine protein/creatinine ratioon 12-27-2023 Protein/Creatinine (U) [Ratio]0.45[facility] HospitalUrine sediment crystal identification by light microscopyon 87-31-0290Hcbpsxwn LM Nom (Urine sed)None Seen #/HPFNone [facility] CenterUrine sediment leukocyte count by microscopy (number/high power field)on 14-77-4308VXZ LM.HPF (Urine sed) [#/Area]0-2 #/HPFNONE [facility] Urobilinogen Auto test strip (U) [Mass/Vol]on 71-43-5687Jqclccekiujc Qn (U)0.2 {Marley'U}/dL0.2-1.0[facility] HospitalpH Auto test strip (U)on 11-38-7467lN (U)6.5 [pH]5.0-9.0[facility] HospitalUS Heart TransthoracicOrdered By: Russel Tolbert on 85-60-6872Hgkjbb Valve Area by Continuity of Peak Velocity1.84[facility] Work Phone: Aortic Valve Area by Continuity of VTI1.69UnPremier Health [facility] Work Phone: [phone] mn grad4.0UnPremier Health [facility] Work Phone: [phone] pk grad8.8UnPrem[facility] Work Phone: [phone] pk vel1.48UnPrem[facility] Work Phone: [phone] A4C EF65.5UnPrem[facility] Work Phone: [phone] Work Phone: [phone] diam2.00UnPrem[facility] Work Phone: [phone] avg E/e' ratio17.40[facility] Work Phone: [phone] E/A ratio1.11[facility] Work Phone: [phone] Health [facility] Work Phone: [phone] Work Phone: [phone] Heart Transthoracicon 11-03-[address], [address] [facility], [place] [address] TRANSTHORACIC ECHOCARDIOGRAM REPORT Patient Name: HAILEE TRIVEDI Reading Physician: [id number] Tolbert MD Study Date: 11/02/2023 Ordering Provider: [id number] ELICIA RHODES MRN/PID: [id number] Fellow: Nurse: Date of /Age: 6 1940 / 83 years [address]car Dispatcher: Allyson Dobson RDCS, RVT Gender: F Additional Staff: Height: 167.64 cm Admit Date: Weight: 88.00 kg Admission Status: BSA: 1.97 m2 Department Location: [facility] Blood Pressure: 140 /74 mmHg Study Type: TRANSTHORACIC ECHO (TTE) COMPLETE Diagnosis/ICD: Nonrheumatic aortic (valve) insufficiency-I35.1; 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; Pulmonary hypertension, unspecified-I27.20 Indication: Atrial Fibrillation, HTN, Hyperlipidemia, 2/6 Diastolic Murmur, CKD-Stage III-IV, Multiple Myeloma-in Remission, Cerebellar Infarct, Obesity CPT Codes: Echo Complete w Full Doppler-67870 Study Detail: The following Echo studies were [...] AI Decel Rate: 35 (more content not included)...Russel Valdivia MD - 11/03/[address], [address], [place] [address] TRANSTHORACIC ECHOCARDIOGRAM REPORT Patient Name: HAILEE TRIVEDI Reading Physician: [id number] Russel Tolbert MD Study Date: 11/02/2023 Ordering Provider: [id number] ELICIA RHODES MRN/PID: [id number] Fellow: Nurse: Date of /Age: 6 1940 / 83 years [address]car Dispatcher: Allyson Dobson RDCS, T Gender: F Additional Staff: Height: 167.64 cm Admit Date: Weight: 88.00 kg Admission Status: BSA: 1.97 m2 Department Location: [facility] Blood Pressure: 140 /74 mmHg Study Type: TRANSTHORACIC ECHO (TTE) COMPLETE Diagnosis/ICD: Nonrheumatic aortic (valve) insufficiency-I35.1; 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; Pulmonary hypertension, unspecified-I27.20 Indication: Atrial Fibrillation, HTN, Hyperlipidemia, 2/6 Diastolic Murmur, CKD-Stage III-IV, Multiple Myeloma-in Remission, Cerebellar Infarct, Obesity CPT Codes: Echo Complete w Full Doppler-42478 Study Detail: The following Echo studies were [...] mmHg PIEDV: 2.22 m/s PADP: 22.7 mmHg [id number] Russel Tolbert MD Electronically signed on 11/03/2023 at 11:22:[address] [facility] Work Phone: TRANSTHORACIC ECHO (TTE) COMPLETEon 11-02-2023 TRANSTHORACIC ECHO (TTE) [address], [address] [place] [address] TRANSTHORACIC ECHOCARDIOGRAM REPORT Patient Name: HAILEE TRIVEDI Reading Physician: [id number] Russel Tolbert MD Study Date: 11/02/2023 Ordering Provider: [id number] ELICIA RHODES MRN/PID: [id number] Fellow: Nurse: Date of /Age: 6 1940 / 83 years [address]car Dispatcher: Allyson Dobson RDCS, RVT Gender: F Additional Staff: Height: 167.64 cm Admit Date: Weight: 88.00 kg Admission Status: BSA: 1.97 m2 Department Location: [facility] Blood Pressure: 140 /74 mmHg Study Type: TRANSTHORACIC ECHO (TTE) COMPLETE Diagnosis/ICD: Nonrheumatic aortic (valve) insufficiency-I35.1; 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; Pulmonary hypertension, unspecified-I27.20 Indication: Atrial Fibrillation, HTN, Hyperlipidemia, 2/6 Diastolic Murmur, CKD-Stage III-IV, Multiple Myeloma-in Remission, Cerebellar Infarct, Obesity CPT Codes: Echo Complete w Full Doppler-50206 Study Detail: The following Echo studies were [...] mmHg PIEDV: 2.22 m/s PADP: 22.7 mmHg [id number] Russel Tolbert MD Electronically signed on 11/03/2023 at 11:22:05 AM Final [facility] Medical CenterAlanine aminotransferase [Enzymatic activity/volume] in Serum or PlasmaOrdered By: Claire Choi on 60-80-8258TTO [Catalytic activity/Vol]9 U/L7-52[facility] HospitalAlbumin [Mass/volume] in Serum or PlasmaOrdered By: Claire Choi on 94-69-5199Nxkqjtw [Mass/Vol]3.6 g/dL2.9-4.4FWVUMedicine Harrison Community HospitalAlbumin [Mass/volume] in Serum or Plasma by Bromocresol green (BCG) dye binding methoOrdered By: Claire Choi on 82-46-0875Ewgpikl BCG dye [Mass/Vol]3.8 g/dL3.5-5.7FWVUMedicine Harrison Community HospitalAlkaline phosphatase [Enzymatic activity/volume] in Serum or PlasmaOrdered By: Claire Choi on 54-67-4403CBU [Catalytic activity/Vol]94 U/X93-309AnvbmrxhmMercy Health Fairfield HospitalAspartate aminotransferase [Enzymatic activity/volume] in Serum or PlasmaOrdered By: Claire Choi on 22-41-0156FLT [Catalytic activity/Vol]14 U/M00-14LljlpwrxzMercy Health Fairfield HospitalBasophils Auto (Bld) [#/Vol]Ordered By: Claire Choi on 00-17-9877Unacrqgsf (Bld) [#/Vol]0.1 10*3/uL0.0-0.2FWVUMedicine Harrison Community HospitalBasophils/100 WBC Auto (Bld) Ordered By: Claire Choi on 56-01-3965Dehqnnssm/100 WBC (Bld)1.2 %. [facility] HospitalBilirubin.total [Mass/volume] in Serum or PlasmaOrdered By: Claire Choi on 01-48-8657Briipoxlg [Mass/Vol]0.4 mg/dL 0.3-1.0[facility] HospitalCalcium [Mass/volume] in Serum or Plasma Ordered By: Claire Choi on 06-67-5975Gsgrasa [Mass/Vol]8.7 mg/dL8.6-10.3 [facility] HospitalCarbon dioxide, total [Moles/volume] in Serum or PlasmaOrdered By: Claire Choi on 86-62-2458OO4 [Moles/Vol]24.2 mmol/L 21.0-31.0[facility] HospitalChloride [Moles/volume] in Serum or PlasmaOrdered By: Claire Choi on 45-46-0267Fufmkqiv [Moles/Vol]108 mmol/L 98-107[facility] HospitalCreatinine [Mass/volume] in Serum or PlasmaOrdered By: Claire Choi on 49-12-0433Jkoolttkfa [Mass/Vol]2.36 mg/dL 0.60-1.20[facility] HospitalEosinophils Auto (Bld) [#/Vol]Ordered By: Claire Choi on 77-41-8889Hbwpzzmotmy (Bld) [#/Vol]0.1 10*3/uL0.0-0.45 [facility] HospitalEosinophils/100 WBC Auto (Bld)Ordered By: Claire Choi on 59-25-7709Unlmyuovanx/100 WBC (Bld)1.1 %.Fire[facility] Regional Medical CenterErythrocyte distribution width Auto (RBC) [Ratio]Ordered By: Claire Choi on 00-34-5491Mswrpubwfxr distribution width (RBC) [Ratio]14.6 %11.9-15.3FWVUMedicine Harrison Community HospitalGlobulin Calc (S) [Mass/Vol]Ordered By: Claire Choi on 09-72-3920Wijeaztq (S) [Mass/Vol]2.5 g/dLMercy Health Fairfield HospitalGlucose [Mass/volume] in Serum or PlasmaOrdered By: Claire Choi on 73-49-6104Cithwey [Mass/Vol]176 mg/aH08-452ZxmiwfhqqMercy Health Fairfield HospitalComment on above:ADA recommended reference rangeRandom Glucose Reference Range is dependent on time and content of last meal. Glucose of more than 200 mg/dL in a nonstressed, ambulatory subject supports the diagnosisof Diabetes Mellitus.Hematocrit Auto (Bld) [Volume fraction]Ordered By: Claire Choi on 46-34-6079Zjuhevfckr (Bld) [Volume fraction]36.0 %34.0-46.4 [facility] HospitalHemoglobin [Mass/volume] in BloodOrdered By: Claire Choi on 08-22-6263Vknduagyha (Bld) [Mass/Vol]11.8 g/dL11.8-15.4 [facility] HospitalIgA [Mass/volume] in Serum or PlasmaOrdered By: Claire Choi on 06-27-6396GlG [Mass/Vol]162 mg/vP61-982GjfynhzhcMercy Health Fairfield HospitalIgG [Mass/volume] in Serum or PlasmaOrdered By: Claire Choi on 78-02-9418NgH [Mass/Vol]708 mg/lH621-5561IbxiutdrxMercy Health Fairfield HospitalIgM [Mass/volume] in Serum or PlasmaOrdered By: Claire Choi on 00-26-8573FvW [Mass/Vol]117 mg/lX20-685LftjqlvzzMercy Health Fairfield HospitalComment on above: Performed at: [facility] [id number] Director: Elpidio Delgado PhD, Phone: [phone] light chains.kappa.free [Mass/volume] in SerumOrdered By: Claire Choi on 77-87-0763Zockwquajldkqn light chains.kappa.free (S) [Mass/Vol]39.7 mg/L3.3-19.4 [facility] HospitalImmunoglobulin light chains.kappa.free/Immunoglobulin light chains.lambda.free [MassOrdered By: Claire Choi on 56-50-7005Sjjdwjqblpznwn light chains.kappa.free/Immunoglobulin light chains.lambda.free (S) [Mass ratio]1.70 0.26-1.65[facility] HospitalComment on above:Performed at: [facility] [address] [id number] Director: Elpidio Delgado PhD, Phone: [phone] light chains.lambda.free [Mass/volume] in Serum or PlasmaOrdered By: Claire Choi on 10-18-2023 Immunoglobulin light chains.lambda.free [Mass/Vol]23.4 mg/L5.7-26.3FWVUMedicine Harrison Community HospitalLeukocytes [#/volume] corrected for nucleated erythrocytes in Blood by Automated counOrdered By: Claire Choi on 28-55-8630LCD corrected for nucl RBC Auto (Bld) [#/Vol]8.2 10*3/uL3.8-11.6 [facility] HospitalLymphocytes Auto (Bld) [#/Vol]Ordered By: Claire Choi on 18-88-8343Exblnxvtvfm (Bld) [#/Vol]2.5 10*3/uL1.00-4.8 [facility] HospitalLymphocytes/100 WBC Auto (Bld)Ordered By: Claire Choi on 57-60-8859Ggcuttrlstk/100 WBC (Bld)30.2 %.[facility] Auto (RBC) [Entitic mass]Ordered By: Claire Choi on 42-10-1517HJN (RBC) [Entitic mass]31.8 pg24.7-34.3FProMedica Defiance Regional HospitalHC Auto (RBC) [Mass/Vol]Ordered By: Claire Choi on 75-23-8479SYSL (RBC) [Mass/Vol]32.8 g/dL32.0-35.0[facility] HospitalMCV Auto (RBC) [Entitic vol]Ordered By: Claire Choi on 20-77-9093ATD (RBC) [Entitic vol]96.9 qC90-003ZwnrxdrfdMercy Health Fairfield HospitalMonocytes Auto (Bld) [#/Vol]Ordered By: Claire Choi on 92-06-6065Iycwvzekv (Bld) [#/Vol] 0.6 10*3/uL0.0-0.8[facility] HospitalMonocytes/100 WBC Auto (Bld) Ordered By: Claire Choi on 97-82-7581Jxbuktuaz/100 WBC (Bld)7.6 %. [facility] HospitalNeutrophils Auto (Bld) [#/Vol]Ordered By: Claire Choi on 26-62-7756Jdblrabsqby (Bld) [#/Vol]4.9 10*3/uL1.8-7.7 [facility] HospitalNeutrophils/100 WBC Auto (Bld)Ordered By: Claire Choi on 59-38-1541Ajxkpailjmj/100 WBC (Bld)59.9 %.[facility] HospitalNo Panel InformationOrdered By: Claire Choi on 63-07-2823Phrmreesi GFR (CKD-EPI)20.198 mL/MinMercy Health Fairfield Hospital Pharmacy Creatinine Clearance (Chem20.65[facility] HospitalProtein Electrophoresis M-SpikeNot observed g/dLNot ObservedMercy Health Fairfield HospitalProtein Electrophoresis NoteSee comment.[facility] Comment on above:Protein electrophoresis scan will follow via computer,mail, or cafeteria cashier delivery.Serum ImmunofixationSee comment.[facility] HospitalComment on above:No monoclonality detected.Nucleated erythrocytes [Presence] in Blood by Automated countOrdered By: Claire Choi on 46-17-0045Dkzvucehs RBC Auto Ql (Bld)0.1 /100{WBC}0-0.5FWVUMedicine Harrison Community HospitalPlatelet mean volume Auto (Bld) [Entitic vol]Ordered By: Claire Choi on 54-70-4128Owggkori mean volume (Bld) [Entitic vol]9.8 fL6.3-10.7 [facility] HospitalPlatelets Auto (Bld) [#/Vol]Ordered By: Claire Choi on 09-55-6474Ggsoyaajf (Bld) [#/Vol]199 10*3/cB542-905FzmgnbfgtMercy Health Fairfield HospitalPotassium [Moles/volume] in Serum or PlasmaOrdered By: Claire Choi on 54-46-0064Taosgenwp [Moles/Vol]4.9 mmol/L3.5-5.1FWVUMedicine Harrison Community HospitalProtein [Mass/volume] in Serum or PlasmaOrdered By: Claire Choi on 63-25-9498Zcdidkp [Mass/Vol]6.3 g/dL6.4-8.9[facility] HospitalProtein [Mass/Vol]6.4 g/dL6.0-8.5FWVUMedicine Harrison Community HospitalRBC Auto (Bld) [#/Vol]Ordered By: Claire Choi on 10-18-2023 RBC (Bld) [#/Vol]3.72 10*6/uL3.60-5.00[facility] Hospitalerum globulin measurement (mass/volume)Ordered By: Claire Choi on 10-18-2023 Globulin (S) [Mass/Vol]2.8 g/dL2.2-3.9[facility] Hospitalerum or plasma albumin/globulin mass ratioOrdered By: Claire Choi on 10-18-2023 Albumin/Globulin [Mass ratio]1.5 {ratio}[facility] Albumin/Globulin [Mass ratio]1.3 {ratio}0.7-1.7FW[facility] Serum or plasma alpha 1 globulin measurement by electrophoresis (mass/volume) Ordered By: Claire Choi on 69-89-0768Jwajg 1 globulin Elph [Mass/Vol]0.2 g/dL0.0-0.4FSalem City Hospitalerum or plasma alpha 2 globulin measurement by electrophoresis (mass/volume)Ordered By: Claire Choi on 63-52-4471Ujjek 2 globulin Elph [Mass/Vol]0.9 g/dL0.4-1.0[facility] Hospitalerum or plasma anion gap determinationOrdered By: Claire Choi on 57-51-1246Gpepl gap [Moles/Vol]10.7 mmol/L6.0-15.0[facility] Hospitalerum or plasma beta globulin measurement by electrophoresis (mass/volume)Ordered By: Claire Choi on 68-58-6751Dipo globulin Elph [Mass/Vol]0.9 g/dL0.7-1.3FSalem City Hospitalerum or plasma gamma globulin measurement by electrophoresis (mass/volume)Ordered By: Claire Choi on 05-74-5827Jgkjv globulin Elph [Mass/Vol]0.8 g/dL0.4-1.8 [facility] Hospitalodium [Moles/volume] in Serum or PlasmaOrdered By: Claire Choi on 97-40-1405Bpziwa [Moles/Vol]138 mmol/J898-229OunwsopczMercy Health Fairfield HospitalUrea nitrogen [Mass/volume] in Serum or PlasmaOrdered By: Claire Choi on 16-71-8384Arwx nitrogen [Mass/Vol]35 mg/dL7-25Mer[facility] HospitalWBC Auto (Bld) [#/Vol]Ordered By: Claire Choi on 41-68-6587UER (Bld) [#/Vol]8.2 10*3/uL3.8-11.6FWVUMedicine [facility] Hospital ECG 12 [place] 26-59-2059Dcfpnv sinus rhythmCPAvita Health System Bucyrus Hospital Work Phone: automated erythrocytes count in urine sediment (number/area)Ordered By: Claire Choi on 18-12-4967JFF Auto (Urine sed) [#/Area]0-1 [HPF]0-4FWVUMedicine Harrison Community HospitalAutomated leukocytes count in urine sediment (number/area)Ordered By: Claire Choi on 90-22-9780YFZ Auto (Urine sed) [#/Area]0-1 [HPF]0-4FWVUMedicine Harrison Community HospitalBilirubin Test strip Ql (U)Ordered By: Claire Choi on 55-53-9340Yxuotugwd Ql (U) NegativeNegativeMercy Health Fairfield HospitalColor Auto (U)Ordered By: Claire Choi on 57-53-4614Srios (U)YellowYellowMercy Health Fairfield HospitalKetones Auto test strip (U) [Mass/Vol]Ordered By: Claire Choi on 52-64-5348Seigsoe (U) [Mass/Vol]NegativeNegNorwalk Memorial HospitalLaboratory - UrinalysisOrdered By: Claire Choi on 30-66-9619Liccmia casts LM Ql (Urine sed)None seen [LPF]0-8[facility] Nitrite Test strip Ql (U)Ordered By: Claire Choi on 30-70-1040Kqhqktz Ql (U)NegativeNegNorwalk Memorial HospitalProtein Auto test strip (U) [Mass/Vol]Ordered By: Claire Choi on 71-04-4973Jomwtin (U) [Mass/Vol]100 mg/dLHighNegDayton VA Medical Centerpecific gravity Auto test strip (U) [Rel density]Ordered By: Claire Choi on 42-64-6380Nmyvmedz gravity (U) [Rel density]1.0181.001-1.030[facility] Squamous epithelial cells detection in urine sediment by light microscopyOrdered By: Claire Choi on 36-66-4169Nniajtyhpw cells.squamous LM Ql (Urine sed)0- 1 [HPF]0-2FWVUMedicine Harrison Community HospitalUrine bacteria detection by automated methodOrdered By: Claire Choi on 13-83-0013Zxdbvppp Auto Ql (U)None seen None SeenMercy Health Fairfield HospitalUrine clarity by refractometry automatedOrdered By: Claire Choi on 22-93-2386Ypcmedn Refractometry automated (U)ClearClearFWVUMedicine Harrison Community HospitalUrine glucose measurement by automated test strip (mass/volume)Ordered By: Claire Choi on 10-41-5339Ribdkub Auto test strip (U) [Mass/Vol]Normal mg/dLNormalMercy Health Fairfield HospitalUrine hemoglobin detection by automated test stripOrdered By: Claire Choi on 72-80-7519Ehmlniznrf Auto test strip Ql (U)Negative NegativeMercy Health Fairfield HospitalUrine leukocyte esterase detection by automated test stripOrdered By: Claire Choi on 09-77-1508Pyupfbocb esterase Auto test strip Ql (U)NegativeNegativeMercy Health Fairfield Hospital Urobilinogen Auto test strip (U) [Mass/Vol]Ordered By: Claire Choi on 15-75-1279Zcsgdalwfcjq (U) [Mass/Vol]Normal mg/dLNormalMercy Health Fairfield HospitalpH Auto test strip (U)Ordered By: Claire Choi on 07-19-2023 pH (U)6.0 [pH]5.0-9.0[facility] HospitalAlanine aminotransferase [Enzymatic activity/volume] in Serum or PlasmaOrdered By: Misti Connolly on 26-58-6213YJF [Catalytic activity/Vol]12 U/L7-52[facility] HospitalAlbumin [Mass/volume] in Serum or PlasmaOrdered By: Misti Connolly on 08-76-8013Qkctfar [Mass/Vol]3.5 g/dL2.9-4.4FWVUMedicine [facility] Albumin [Mass/volume] in Serum or Plasma by Bromocresol green (BCG) dye binding methoOrdered By: Misti Connolly on 10-33-1234Rxzliet BCG dye [Mass/Vol]3.6 g/dL 3.5-5.7FWVUMedicine Harrison Community HospitalAlkaline phosphatase [Enzymatic activity/volume] in Serum or PlasmaOrdered By: Misti Connolly on 20-30-5931CKB [Catalytic activity/Vol]83 U/K28-739WkzdqcdywMercy Health Fairfield HospitalAspartate aminotransferase [Enzymatic activity/volume] in Serum or PlasmaOrdered By: Misti Connolly on 24-28-9657YSW [Catalytic activity/Vol]14 U/W07-74KycmaevibMercy Health Fairfield HospitalBasophils Auto (Bld) [#/Vol]Ordered By: Misti Connolly on 86-71-7155Qpofidcdo (Bld) [#/Vol]0.0 10*3/uL0.0-0.2FWVUMedicine Harrison Community HospitalBasophils/100 WBC Auto (Bld)Ordered By: Misti Connolly on 07-12-2023 Basophils/100 WBC (Bld)0.4 %.[facility] HospitalBilirubin.total [Mass/volume] in Serum or PlasmaOrdered By: Misti Mohsen on 46-15-0775Hsodahdff [Mass/Vol]0.4 mg/dL0.3-1.0[facility] HospitalCalcium [Mass/volume] in Serum or PlasmaOrdered By: Misti Mohsen on 08-09-0589Kabvigq [Mass/Vol]8.5 mg/dL8.6-10.3FWVUMedicine Harrison Community HospitalCarbon dioxide, total [Moles/volume] in Serum or PlasmaOrdered By: Misti Connolly on 07-12-2023 CO2 [Moles/Vol]22.7 mmol/L21.0-31.0[facility] HospitalChloride [Moles/volume] in Serum or PlasmaOrdered By: Misti Mohsen on 79-35-6762Wvcxhwjv [Moles/Vol]111 mmol/R91-151EwrezakqeMercy Health Fairfield HospitalCreatinine [Mass/volume] in Serum or PlasmaOrdered By: Misti Connolly on 07-12-2023 Creatinine [Mass/Vol]2.50 mg/dL0.60-1.20[facility] Eosinophils Auto (Bld) [#/Vol]Ordered By: Misti Mohsen on 15-46-5687Erygpjvoxhc (Bld) [#/Vol]0.1 10*3/uL0.0-0.45[facility] Eosinophils/100 WBC Auto (Bld)Ordered By: Misti Connolly on 07-12-2023 Eosinophils/100 WBC (Bld)1.1 %.[facility] HospitalErythrocyte distribution width Auto (RBC) [Ratio]Ordered By: Misti Connolly on 07-12-2023 Erythrocyte distribution width (RBC) [Ratio]13.8 %11.9-15.3FWVUMedicine Harrison Community HospitalGlucose [Mass/volume] in Serum or PlasmaOrdered By: Misti Connolly on 66-51-0387Ejqbmkp [Mass/Vol]119 mg/eW04-865HfmitywbqMercy Health [facility] Comment on above:ADA recommended reference rangeGlucose mean value [Mass/volume] in Blood Estimated from glycated hemoglobinOrdered By: Misti Connolly on 95-16-4787Lsbmgxg glucose Estimated from glycated hemoglobin (Bld) [Mass/Vol]174 mg/dLMercy Health Fairfield HospitalAverage glucose Estimated from glycated hemoglobin (Bld) [Mass/Vol]Glucose mean value [Mass/volume] in Blood Estimated from glycated hemoglobinMercy Health Fairfield HospitalHematocrit Auto (Bld) [Volume fraction]Ordered By: Misti Mohsen on 53-11-0771Uhqigzxlhl (Bld) [Volume fraction]36.0 %34.0-46.4FWVUMedicine Harrison Community HospitalHemoglobin [Mass/volume] in BloodOrdered By: Misti Connolly on 47-74-7060Fgfsumfhkw (Bld) [Mass/Vol]12.0 g/dL11.8-15.4FWVUMedicine Harrison Community HospitalImmunoglobulin light chains.kappa.free [Mass/volume] in SerumOrdered By: Misti Connolly on 12-61-4362Iwlkxyrzllqjxi light chains.kappa.free (S) [Mass/Vol]40.5 mg/L3.3-19.4 [facility] HospitalImmunoglobulin light chains.kappa.free/Immunoglobulin light chains.lambda.free [MassOrdered By: Misti Connolly on 02-85-3779Thvmmtdkbaoadf light chains.kappa.free/Immunoglobulin light chains.lambda.free (S) [Mass ratio]1.750.26-1.65[facility] HospitalComment on above:Performed at: - Lab[address] [id number] Director: Elpidio Delgado PhD, Phone: [phone] Immunoglobulin light chains.lambda.free [Mass/volume] in Serum or PlasmaOrdered By: Misti Connolly on 07-22-9702Mwpxedyscwuoca light chains.lambda.free [Mass/Vol]23.2 mg/L5.7-26.3FWVUMedicine Harrison Community HospitalLaboratory - Hematology and Cell countsOrdered By: Misti Connolly on 76-87-9765BdR3f (Bld) [Mass fraction]7.7 %High4.3-5.6FWVUMedicine Harrison Community HospitalComment on above:Increased risk for diabetes: 5.7 - 6.4diabetes: >6.4glycemic control for adults with diabetes: <7.0Leukocytes [#/volume] corrected for nucleated erythrocytes in Blood by Automated counOrdered By: Misti Connolly on 07-12-2023 WBC corrected for nucl RBC Auto (Bld) [#/Vol]7.3 10*3/uL3.8-11.6FWVUMedicine Harrison Community HospitalLymphocytes Auto (Bld) [#/Vol]Ordered By: Misti Connolly on 31-86-5677Vdidusjnjtt (Bld) [#/Vol]2.4 10*3/uL1.00-4.8[facility] HospitalLymphocytes/100 WBC Auto (Bld)Ordered By: Misti Connolly on 55-16-3496Hmscsjjfoko/100 WBC (Bld)33.7 %.[facility] Auto (RBC) [Entitic mass]Ordered By: Misti Connolly on 25-64-6226XML (RBC) [Entitic mass]31.5 pg24.7-34.3FWVUMedicine Harrison Community HospitalMCHC Auto (RBC) [Mass/Vol]Ordered By: Misti Connolly on 58-24-0470WKYL (RBC) [Mass/Vol]33.2 g/dL 32.0-35.0[facility] HospitalMCV Auto (RBC) [Entitic vol]Ordered By: Misti Connolly on 55-42-1279LHU (RBC) [Entitic vol]95.0 xV85-488HobzwdokvMercy Health Fairfield HospitalMonocytes Auto (Bld) [#/Vol]Ordered By: Misti Connolly on 22-18-2601Oihmmqjcp (Bld) [#/Vol]0.5 10*3/uL0.0-0.8[facility] HospitalMonocytes/100 WBC Auto (Bld)Ordered By: Misti Connolly on 07-12-2023 Monocytes/100 WBC (Bld)6.2 %.[facility] HospitalNeutrophils Auto (Bld) [#/Vol]Ordered By: Msiti Connolly on 96-15-0708Rjmdfywcdfp (Bld) [#/Vol]4.3 10*3/uL1.8-7.7FWVUMedicine Harrison Community HospitalNeutrophils/100 WBC Auto (Bld) Ordered By: Misti Connolly on 41-71-3888Xhcodqmezog/100 WBC (Bld)58.6 %.[facility] HospitalNo Panel InformationOrdered By: Misti Mohsen on 34-93-3158Zonolyrmr GFR (CKD-EPI)18.848 mL/MinMercy Health Fairfield Hospital Pharmacy Creatinine Clearance (Chem19.74[facility] HospitalProtein Electrophoresis M-SpikeNot observed g/dLNot ObservedMercy Health Fairfield HospitalProtein Electrophoresis NoteSee comment.[facility] Comment on above:Protein electrophoresis scan will follow via computer,mail, or cafeteria cashier delivery.Performed at: [place] [id number] Director: Elpidio Delgado PhD, Phone: [phone] %High4.3-5.6 [facility] HospitalNucleated erythrocytes [Presence] in Blood by Automated countOrdered By: Misti Connolly on 57-62-7369Rrzgzseyk RBC Auto Ql (Bld)0.1 /100{WBC}0-0.5FWVUMedicine Harrison Community HospitalPlatelet mean volume Auto (Bld) [Entitic vol]Ordered By: Misti Connolly on 02-30-0268Eubcttnt mean volume (Bld) [Entitic vol]9.5 fL6.3-10.7FWV[facility] Platelets Auto (Bld) [#/Vol]Ordered By: Misti Connolly on 05-91-4383Yenxldakk (Bld) [#/Vol]198 10*3/fO562-958HmshtwypsMercy Health Fairfield HospitalPotassium [Moles/volume] in Serum or PlasmaOrdered By: Misti Connolly on 07-12-2023 Potassium [Moles/Vol]4.5 mmol/L3.5-5.1FWVUMedicine Harrison Community HospitalProtein [Mass/volume] in Serum or PlasmaOrdered By: Misti Connolly on 23-17-2029Eebvslf [Mass/Vol]6.3 g/dL6.4-8.9[facility] HospitalProtein [Mass/Vol]6.2 g/dL6.0-8.5FWVUMedicine Harrison Community HospitalRBC Auto (Bld) [#/Vol]Ordered By: Misti Connolly on 57-97-1977QPW (Bld) [#/Vol]3.79 10*6/uL3.60-5.00[facility] City Hospitalerum globulin measurement by calculation (mass/volume) Ordered By: Misti Jeanpamela on 10-27-6576Zqsqehjr (S) [Mass/Vol]2.7 g/dL2.2-3.9 [facility] Hospitalerum or plasma albumin/globulin mass ratio Ordered By: Misti Mohsen on 20-91-9593Xilgrya/Globulin [Mass ratio]1.3 {ratio} 0.7-1.7FSalem City Hospitalerum or plasma alpha 1 globulin measurement by electrophoresis (mass/volume)Ordered By: Misti Mohsen on 00-16-5324Knpbg 1 globulin Elph [Mass/Vol]0.1 g/dL0.0-0.4FSalem City Hospitalerum or plasma alpha 2 globulin measurement by electrophoresis (mass/volume)Ordered By: Misti Mohsen on 40-02-1496Tibsj 2 globulin Elph [Mass/Vol]1.0 g/dL0.4-1.0[facility] Hospitalerum or plasma anion gap determinationOrdered By: Misti Mohsen on 50-55-4571Ghhmt gap [Moles/Vol] 10.8 mmol/L6.0-15.0[facility] Hospitalerum or plasma beta globulin measurement by electrophoresis (mass/volume)Ordered By: Misti Mohsen on 37-34-7134Lfou globulin Elph [Mass/Vol]0.9 g/dL0.7-1.3FSalem City Hospitalerum or plasma gamma globulin measurement by electrophoresis (mass/volume)Ordered By: Misti Mohsen on 14-23-8838Uqyaz globulin Elph [Mass/Vol]0.6 g/dL0.4-1.8[facility] Hospitalodium [Moles/volume] in Serum or PlasmaOrdered By: Misti Mohsen on 52-01-8725Klxuzu [Moles/Vol]140 mmol/P334-313ZmlpqyskrMercy Health Fairfield HospitalUrea nitrogen [Mass/volume] in Serum or PlasmaOrdered By: Misti Connolly on 09-36-4153Tyli nitrogen [Mass/Vol]33 mg/dL7-25[facility] HospitalWBC Auto (Bld) [#/Vol]Ordered By: Misti Connolly on 50-49-0680SMQ (Bld) [#/Vol]7.3 10*3/uL3.8-11.6FWVUMedicine Harrison Community HospitalOffice Visit (Cardiology)on 66-19-2074Xeaqur-up visit Diagnoses/Problems Assessed Persistent atrial fibrillation with [...] Weight Tips; Status:Complete - Retrospective Authorization; Done: [id number] Some eating tips that can help you lose weight.; Status:Complete - Retrospective Authorization; Done: [id number] SocHx: Never a smoker Tobacco Use Screening; Status:Complete; Done: [id number] Patient Instructions Please bring all medicines, vitamins, [...] recurrence. She did have noninvasive assessment at [facility], which was negative. Couple of years [...] for complaint. Vitals Vital (more content not included)...NormalUH TouchworksTobacco Screening.on 69-27-7769Ibhyf depression screening assessmentNoTri-[facility] Hospital [employer] DO Work Phone: Fall risk assessmenta) No falls within the last year [facility] [employer] DO Work Phone: Tobacco use status CPHSb) NoMNorthern State Hospital deskwolf 250 DO Work Phone: LIPID PROFILEon 10-85-5476OCIN-HDL RATIO NORMSEE BELOW NormalGreen Cross HospitalComment on above:Result Comment: 3.3 - 4.4 LOW RISK 4.4 - 7.1 AVERAGE RISK 7.1 - 11.0 MODERATE RISK >11.0 HIGH RISKPerformed By: #### HH #### [facility] [address] [place] [address] Dr. Richa CheemaCholesterol [Mass/Vol]173 mg/dLNormal<=200The [facility] Comment on above:Performed By: #### HH #### [facility] [address] [address] [address] Richa CheemaCholesterol in HDL [Mass/Vol]63 mg/dLCritically psyj72-44Ahf [facility] CenterComment on above:Performed By: #### HH #### [facility] [address] [address] [address] Richa Wrightesterol in LDL [Mass/Vol]75.6 mg/dLProtestant Deaconess HospitalComment on above:Performed By: #### HH #### [facility] [address] [address] [address] Richa Wrightestermata.total/Cholesterol in HDL [Mass ratio]2.7 {ratio} NormalGreen Cross HospitalComrehabilitation institute of [place] on above:Performed By: #### HH #### [facility] [address] [address] [address] Richa Stallworth NORMAL> or = 60 mg/dl - LOW CARDIOVASCULAR RISK <40 mg/dl - HIGH CARDIOVASCULAR RISKProtestant Deaconess HospitalComment on above:Performed By: #### HH #### [facility] [address] [place] [address] Dr. Richa CheemaLDL CALC NORMALSEE BELOWProtestant Deaconess HospitalComment on above:Result Comment: <100 mg/dl OPTIMAL 100 - 129 mg/dl NEAR OR ABOVE OPTIMAL 130 - 159 mg/dl BORDERLINE HIGH 160 - 189 mg/dl HIGH >190 mg/dl VERY HIGH Performed By: #### HH #### [facility] [address] [place] [address] Dr. Richa CheemaTriglyceride [Mass/Vol]172 mg/dLCritically high<=150The [facility] CenterComrehabilitation institute of [place] on above:Performed By: #### HH #### [facility] [address] [place] [address] Dr. Richa CheemaVLDL CALC34.4 mg/dLNoOhioHealth Southeastern Medical CenterComrehabilitation institute of [place] on above: Performed By: #### HH #### [facility] [address] [place] [address] Dr. Richa CheemaPROF CHEM 8 (BAS METB)on 96-40-5969Braxw gap [Moles/Vol]13.2 mmol/LNormalGreen Cross HospitalComrehabilitation institute of [place] on above:Performed By: #### HH #### [facility] [address] [place] [address] Dr. Richa CheemaCalcium [Mass/Vol]8.8 mg/dLNormal8.5-10.1The [facility] Comment on above:Performed By: #### HH #### [facility] [address] [place] [address] Dr. Richa CheemaChloride [Moles/Vol]108 mmol/LCritically ohve90-641Cuh [facility] CenterComment on above:Performed By: #### HH #### [facility] [address] [place] [address] Dr. Richa CheemaCO2 [Moles/Vol]25.7 mmol/XSaexmw78.0-32.0The [facility] Comment on above:Performed By: #### HH #### [facility] [address] [place] [address] Dr. Richa CheemaCreatinine [Mass/Vol]2.30 mg/dLCritically high0.55-1.02The [facility] CenterComment on above:Performed By: #### HH #### [facility] [address] [place] [address] Dr. Chaudhry ChangEGFR-AF UHONSKHQ55 mL/min/1.70e1Zgcqmujsjk low>=60The [facility] CenterComment on above:Performed By: #### HH #### [facility] [address] [place] [address] Dr. Richa MadrigalGFR-NON AF UFPECQIP16 mL/min/1.91n9Ppnkmfrmlo low>=60The [facility] CenterComment on above:Performed By: #### HH #### [facility] [address] [place] [address] Dr. Richa CheemaGlucose [Mass/Vol]139 mg/dLCritically erxa55-478Rpy [facility] CenterComment on above:Performed By: #### HH #### [facility] [address] [place] [address] Dr. Richa CheemaPotassium [Moles/Vol]4.9 mmol/LNormal3.5-5.1The [facility] Comment on above:Performed By: #### HH #### [facility] [address] [place] [address] Dr. Richa CheemaSodium [Moles/Vol]142 mmol/FZywisv544-511Xnx [facility] Comment on above:Performed By: #### HH #### [facility] [address] [place] [address] Dr. Richa Torres nitrogen [Mass/Vol]25.0 mg/dLCritically high7.0-18.0The [facility] CenterComment on above:Performed By: #### HH #### [facility] [address] [place] [address] Dr. Richa Torres nitrogen/Creatinine [Mass ratio]10.9 mg/mgNormalThe [facility] CenterComment on above:Performed By: #### HH #### [facility] [address] [place] [address] Dr. Richa Cool 13-37-1065NFI [Catalytic activity/Vol]18 U/GKzlkoj95-62Ums [facility] CenterComment on above:Performed By: #### HH #### [facility] [address] [place] [address] Dr. Richa Espinoza 46-63-8518ZQV [Catalytic activity/Vol]18 U/CXgoldt43-57Ksx [facility] CenterComment on above:Performed By: #### HH #### [facility] [address] [place] [address] Dr. Richa CheemaXR BONE SURVEYon 23-39-4437RI BONE SURVEYEXAMINATION: XR BONE SURVEY HISTORY: Multiple myeloma in [...] Electronically authenticated by: DIANN IBANEZ Date: 2023-01-07 07:54Pro[facility]acon[facility] HospitalXR KUB 1 VIEWon 70-92-3738KA KUB 1 VIEWEXAMINATION: XR KUB 1 VIEW HISTORY: Kidney stone [...] Electronically authenticated by: DIANN IBANEZ Date: 2023-01-06 18:33[facility]acon[facility] HospitalAlbumin [Mass/volume] in Serum or PlasmaOrdered By: Claire Choi on 08-79-4923Shxswnx [Mass/Vol]3.6 g/dL3.2-5.5FWVUMedicine Harrison Community HospitalAlkaline phosphatase [Enzymatic activity/volume] in Serum or PlasmaOrdered By: Claire Choi on 89-07-1387ATA [Catalytic activity/Vol]99 U/R09-95HzuhapsirMercy Health Fairfield HospitalAspartate aminotransferase [Enzymatic activity/volume] in Serum or PlasmaOrdered By: Claire Choi on 01-04-2023 AST [Catalytic activity/Vol]14 U/J86-98DlcjzlchrMercy Health Fairfield Hospital Basophils Auto (Bld) [#/Vol]Ordered By: Claire Choi on 48-69-0795Qpzcarqmo (Bld) [#/Vol]0.1 10*3/uL0.0-0.2FWVUMedicine Harrison Community HospitalBasophils/100 WBC Auto (Bld)Ordered By: Claire Choi on 62-84-8673Wwdxtxomg/100 WBC (Bld) 0.8 %.[facility] HospitalBilirubin.total [Mass/volume] in Serum or PlasmaOrdered By: Claire Choi on 07-37-7133Titwecsqx [Mass/Vol]0.6 mg/dL 0.3-1.2FWVUMedicine Harrison Community HospitalCalcium [Mass/volume] in Serum or Plasma Ordered By: Claire Choi on 74-26-3924Uxnfyej [Mass/Vol]8.7 mg/dL8.2-10.2 [facility] HospitalCarbon dioxide, total [Moles/volume] in Serum or PlasmaOrdered By: Claire Choi on 16-66-3044XQ7 [Moles/Vol]21.9 mmol/L 22.0-30.0[facility] HospitalChloride [Moles/volume] in Serum or PlasmaOrdered By: Claire Choi on 21-90-2465Lwdzowdr [Moles/Vol]108 mmol/L 95-114[facility] HospitalCreatinine and Glomerular filtration rate.predicted panel (S/P/Bld)Ordered By: Claire Choi on 01-04-2023 Creatinine [Mass/Vol]2.48 mg/dL0.44-1.03[facility] Eosinophils Auto (Bld) [#/Vol]Ordered By: Claire Choi on 01-04-2023 Eosinophils (Bld) [#/Vol]0.2 10*3/uL0.0-0.45[facility] Eosinophils/100 WBC Auto (Bld)Ordered By: Claire Choi on 01-04-2023 Eosinophils/100 WBC (Bld)2.3 %.[facility] HospitalErythrocyte distribution width Auto (RBC) [Ratio]Ordered By: Claire Choi on 01-04-2023 Erythrocyte distribution width (RBC) [Ratio]13.2 %11.9-15.3FWVUMedicine Harrison Community HospitalEstimated glomerular filtration rate (GFR) non- Ordered By: Claire Choi on 67-31-6258VZL/1.73 sq M.predicted among non- blacks MDRD (S/P/Bld) [Vol rate/Area]19 mL/MinMercy Health Fairfield Hospital GFR/1.73 sq M.predicted among non-blacks MDRD (S/P/Bld) [Vol rate/Area]Estimated glomerular filtration rate (GFR) non- AmericanMercy Health Fairfield HospitalGlobulin Calc (S) [Mass/Vol]Ordered By: Claire Choi on 01-04-2023 Globulin (S) [Mass/Vol]2.5 g/dLMercy Health Fairfield HospitalGlucose [Mass/volume] in Serum or PlasmaOrdered By: Claire Choi on 01-04-2023 Glucose [Mass/Vol]144 mg/qS01-811CjmfuckrlMercy Health Fairfield HospitalComment on above:ADA recommended reference rangeRandom Glucose Reference Range is dependent on time and content of last meal. Glucose of more than 200 mg/dL in a nonstressed, ambulatory subject supports the diagnosisof Diabetes Mellitus. Hematocrit Auto (Bld) [Volume fraction]Ordered By: Claire Choi on 94-40-8205Yrkicqsoge (Bld) [Volume fraction]38.4 %34.0-46.4FWVUMedicine Harrison Community HospitalHemoglobin [Mass/volume] in BloodOrdered By: Claire Choi on 31-05-5862Cjqpmjjhyn (Bld) [Mass/Vol]12.7 g/dL11.8-15.4FWVUMedicine Harrison Community HospitalImmunoglobulin light chains.kappa.free [Mass/volume] in Serum Ordered By: Claire Choi on 15-02-9119Xdrmfcduvohdai light chains.kappa.free (S) [Mass/Vol]26.9 mg/L3.3-19.4FWVUMedicine Harrison Community HospitalImmunoglobulin light chains.kappa.free/Immunoglobulin light chains.lambda.free [MassOrdered By: Claire Choi on 01-04-2023 Immunoglobulin light chains.kappa.free/Immunoglobulin light chains.lambda.free (S) [Mass ratio]2.240.26-1.65[facility] HospitalComment on above: Performed at: - Labco[address] [id number] Director: Elpidio Delgado PhD, Phone: [phone] light chains.lambda.free [Mass/volume] in Serum or PlasmaOrdered By: Claire Choi on 38-39-9041Ungnwxjbgsqmjs light chains.lambda.free [Mass/Vol]12.0 mg/L 5.7-26.3FWVUMedicine Harrison Community HospitalLeukocytes [#/volume] corrected for nucleated erythrocytes in Blood by Automated counOrdered By: Claire Choi on 58-39-5803DQM corrected for nucl RBC Auto (Bld) [#/Vol]8.9 10*3/uL3.8-11.6 [facility] HospitalLymphocytes Auto (Bld) [#/Vol]Ordered By: Claire Choi on 16-23-7548Nuoskdulkkz (Bld) [#/Vol]3.0 10*3/uL1.00-4.8 [facility] HospitalLymphocytes/100 WBC Auto (Bld)Ordered By: Claire Choi on 76-66-9249Nraipdjidnm/100 WBC (Bld)34.1 %.[facility] Auto (RBC) [Entitic mass]Ordered By: Claire Choi on 98-87-6834EVB (RBC) [Entitic mass]31.4 pg24.7-34.3FProMedica Defiance Regional HospitalHC Auto (RBC) [Mass/Vol]Ordered By: Claire Choi on 61-51-8439HRJZ (RBC) [Mass/Vol]33.0 g/dL32.0-35.0[facility] HospitalMCV Auto (RBC) [Entitic vol]Ordered By: Claire Choi on 37-66-0440RKB (RBC) [Entitic vol]95.1 oH14-840PenessnsrMercy Health Fairfield HospitalMonocytes Auto (Bld) [#/Vol]Ordered By: Claire Choi on 41-62-9563Nncsosnol (Bld) [#/Vol] 0.7 10*3/uL0.0-0.8[facility] HospitalMonocytes/100 WBC Auto (Bld) Ordered By: Claire Choi on 82-44-2208Lnvqpqeer/100 WBC (Bld)8.0 %. [facility] HospitalNeutrophils Auto (Bld) [#/Vol]Ordered By: Claire Choi on 01-17-7814Ibvtczvxihd (Bld) [#/Vol]4.9 10*3/uL1.8-7.7 [facility] HospitalNeutrophils/100 WBC Auto (Bld)Ordered By: Claire Choi on 02-50-3826Rbtmoobignh/100 WBC (Bld)54.8 %.[facility] HospitalNo Panel InformationOrdered By: Claire Choi on 45-92-6178Uczhzccno GFR ()23 mL/MinMercy Health Fairfield HospitalComment on above:GFR estimated reference range: According to KDOQI guidelines, <60 ml/min/1.73m2 is sufficient todiagnose a patient with chronic kidney disease.Pharmacy Creatinine Clearance (Chem19.82[facility] Hospital23 mL/MinMercy Health Fairfield HospitalNucleated erythrocytes [Presence] in Blood by Automated countOrdered By: Claire Choi on 81-80-7096Lyinjcaks RBC Auto Ql (Bld)0.0 /100{WBC}0-0.5FWVUMedicine Harrison Community HospitalPlatelet mean volume Auto (Bld) [Entitic vol]Ordered By: Claire Choi on 21-54-5447Qdoldxpr mean volume (Bld) [Entitic vol]9.6 fL6.3-10.7 [facility] HospitalPlatelets Auto (Bld) [#/Vol]Ordered By: Claire Choi on 52-17-3642Tozsrlwmg (Bld) [#/Vol]210 10*3/kE814-735OyqehqqgwMercy Health Fairfield HospitalPotassium [Moles/volume] in Serum or PlasmaOrdered By: Claire Choi on 41-79-3234Aferxwekz [Moles/Vol]4.3 mmol/L3.5-5.1FWVUMedicine Harrison Community HospitalProtein [Mass/volume] in Serum or PlasmaOrdered By: Claire Choi on 07-25-2625Ikwdqdf [Mass/Vol]6.1 g/dL6.1-7.9[facility] HospitalRBC Auto (Bld) [#/Vol]Ordered By: Claire Choi on 70-89-0139DKN (Bld) [#/Vol]4.04 10*6/uL3.60-5.00[facility] City Hospitalerum or plasma alanine aminotransferase measurement without P-5'-P (enzymatic activiOrdered By: Claire Choi on 19-91-5858GAH No additional P-5'-P [Catalytic activity/Vol]14 U/D85-31VeoovmpuuEast Liverpool City Hospitalerum or plasma albumin/globulin mass ratioOrdered By: Claire Choi on 01-04-2023 Albumin/Globulin [Mass ratio]1.4 {ratio}[facility] Hospitalerum or plasma anion gap determinationOrdered By: Claire Choi on 01-04-2023 Anion gap [Moles/Vol]11.4 mmol/L6.0-15.0[facility] Hospitalodium [Moles/volume] in Serum or PlasmaOrdered By: Claire Choi on 01-04-2023 Sodium [Moles/Vol]137 mmol/L320-950ExotkvchmMercy Health Fairfield HospitalUrea nitrogen [Mass/volume] in Serum or PlasmaOrdered By: Claire Choi on 94-00-7325Tomr nitrogen [Mass/Vol]33 mg/dL9-23[facility] WBC Auto (Bld) [#/Vol]Ordered By: Claire Choi on 76-09-7467TYK (Bld) [#/Vol]8.9 10*3/uL3.8-11.6FWVUMedicine Harrison Community HospitalPTH INTACTon 56-11-4951CMQ, Yuubqw18 pg/mLCritically poqd52-59Onc [facility] CenterComment on above:Performed By: #### MG, RENAL, URIC #### [facility] [address] [place] [address] Dr. Richa CheemaHEMOGRAM AND PLATELon 59-52-3907Naamrwwdjl (Bld) [Volume fraction]40.4 %Mkccam12.0-48.0The [facility] CenterComment on above:Performed By: #### HH #### [facility] [address] [place] [address] Dr. Richa CheemaHemoglobin (Bld) [Mass/Vol]13.5 g/bNSgqpcf52.0-16.0The [facility] CenterComment on above:Performed By: #### HH #### [facility] [address] [place] [address] Dr. Richa LastH (RBC) [Entitic mass]31.7 yvEsjocc69.7-34.0The [facility] on above:Performed By: #### HH #### [facility] [address] [place] [address] Dr. Richa CheemaHC (RBC) [Mass/Vol]33.4 g/nQOeuunp92.9-35.2The [facility] Centerment on above:Performed By: #### HH #### [facility] [address] [place] [address] Dr. Richa LastV (RBC) [Entitic vol]94.8 eOLwdxac07.0-99.0The [facility] Medical Centerment on above:Performed By: #### HH #### [facility] [address] [place] [address] Dr. Richa CheemaPLT218 103/okBsnivb135-173Nym [facility] CenterComment on above: Performed By: #### HH #### [facility] [address] [place] [address] Dr. Richa CheemaRBC4.26 106/ulNormal4.20-5.40The [facility] CenterComment on above:Performed By: #### HH #### [facility] [address] [place] [address] Dr. Richa CheemaWBC8.7 103/ulNormal4.0-11.0The [facility] CenterComment on above: Performed By: #### HH #### [facility] [address] [place] [address] Dr. Richa CheemaMAGNESIUMon 81-13-9624Gejpzifnd [Mass/Vol]2.0 mg/dLNormal1.8-2.4 The [facility] CenterComment on above:Performed By: #### MG, RENAL, URIC #### [facility] [address] [place] [address] Dr. Richa HernandezAL FUNCTION PANELon 40-12-4594Cpkbcno [Mass/Vol]3.4 g/dLNormal 3.4-5.0The [facility] CenterComment on above:Performed By: #### MG, RENAL, URIC #### [facility] [address] [place] [address] Dr. Richa CheemaCalcium [Mass/Vol]8.6 mg/dLNormal8.5-10.1The [facility] Comment on above:Performed By: #### MG, RENAL, URIC #### [facility] [address] [place] [address] Dr. Richa CheemaChloride [Moles/Vol]104 mmol/LPpqvmi63-770Ikd [facility] Comment on above:Performed By: #### MG, RENAL, URIC #### [facility] [address] [place] [address] Dr. Richa CheemaCO2 [Moles/Vol]29.7 mmol/YOrxnaq38.0-32.0The [facility] Comment on above:Performed By: #### MG, RENAL, URIC #### [facility] [address] [place] [address] Dr. Richa CheemaCreatinine [Mass/Vol]2.29 mg/dLCritically high0.55-1.02The [facility] CenterComment on above:Performed By: #### MG, RENAL, URIC #### [facility] [address] [place] [address] Dr. Chaudhry ChangEGFR-AF NATYOFNE18 mL/min/1.67t6Jbiwavtmef low>=60The [facility] CenterComment on above:Performed By: #### MG, RENAL, URIC #### [facility] [address] [address] [address] Richa MadrigalGFR-NON AF HRJKZDOL14 mL/min/1.52r0Ujhcixkiiq low>=60The [facility] CenterComment on above:Performed By: #### MG, RENAL, URIC #### [facility] [address] [address] [address] Richa CheemaGlucose [Mass/Vol]133 mg/dLCritically tqtn27-098Slm [facility] CenterComment on above:Performed By: #### MG, RENAL, URIC #### [facility] [address] [address] [address] Richa CheemaPhosphate [Mass/Vol]3.9 mg/dLNormal2.6-4.7The [facility] Comment on above:Performed By: #### MG, RENAL, URIC #### [facility] [address] [address] [address] Richa CheemaPotassium [Moles/Vol]4.4 mmol/LNormal3.5-5.1The [facility] Comment on above:Performed By: #### MG, RENAL, URIC #### [facility] [address] [address] [address] Richa CheemaSodium [Moles/Vol]141 mmol/KIpqqkp966-164Hkb [facility] Comment on above:Performed By: #### MG, RENAL, URIC #### [facility] [address] [address] [address] Richa CheemaUrea nitrogen [Mass/Vol]30.0 mg/dLCritically high7.0-18.0The [facility] Centerment on above:Performed By: #### MG, RENAL, URIC #### [facility] [address] [address] [address] Richa CheemaUA RANDOM W/MICROSCOPICon 84-45-9752HWTYKFJXLGPB SEENNormalNONE SEENThe [facility] CenterComment on above:Performed By: #### UAMIC #### [facility] [address] [address] [address] Richa CheemaBilirubin Ql (U)NegativeNormalNEGATIVEGeorgetown Behavioral Hospital on above:Performed By: #### UAMIC #### [facility] [address] [address] [address] Richa CheemaCASTNONE SEENNormalNONE SEENGreen Cross HospitalComment on above:Performed By: #### UAMIC #### [facility] [address] [address] [address] Richa CheemaClarity (U)CLEARNormalCLEARGreen Cross HospitalComment on above: Performed By: #### UAMIC #### [facility] [address] [place] [address] Dr. Richa Johnstonlor (U)LT. YELLOWNormalYELLOWGreen Cross HospitalComment on above:Performed By: #### UAMIC #### [facility] [address] [place] [address] Dr. Richa CheemaCrystals LM Nom (Urine sed)NONE SEENNormalNONE SEENGreen Cross HospitalComment on above:Performed By: #### UAMIC #### [facility] [address] [place] [address] Dr. Chaudhry ChangEpithelial cells LM Ql (Urine sed)RARENormalNONE SEEN /RAREGreen Cross HospitalComment on above:Performed By: #### UAMIC #### [facility] [address] [place] [address] Dr. Richa CheemaGlucose Ql (U)NegativeNormalNEGATIVEGreen Cross HospitalComment on above:Performed By: #### UAMIC #### [facility] [address] [place] [address] Dr. Richa CheemaHemoglobin Ql (U)TRACE-INTACTAbnormalNEGATIVEGreen Cross HospitalComment on above:Performed By: #### UAMIC #### [facility] [address] [place] [address] DrBritt Flores Ql (U)NegativeNormalNEGATIVEThe [facility] CenterComment on above:Performed By: #### UAMIC #### [facility] [address] [place] [address] Dr. Richa CheemaLEUKOCYTESNegativeNormalNEGATIVEThe [facility] CenterComment on above:Performed By: #### UAMIC #### [facility] [address] [place] [address] Dr. Richa CheemaMUCOUSNONE SEENNormalNONE SEENThe [facility]obee HospitalComment on above:Performed By: #### UAMIC #### [facility] [address] [place] [address] Dr. Richa Ngtrite Ql (U)NegativeNormalNEGATIVEThe [facility] CenterComment on above:Performed By: #### UAMIC #### [facility] [address] [place] [address] Dr. Richa CheemapH (U)8.0 [pH]Normal5-9The [facility] CenterComment on above: Performed By: #### UAMIC #### [facility] [address] [place] [address] Dr. Richa CheemaFqthtEZX1-7Drbibr1-6Tqj [facility] CenterComment on above:Performed By: #### UAMIC #### [facility] [address] [place] [address] Dr. Richa CheemaSPEC GRAVITY1.320Nflith2.005-<=1.025The [facility] CenterComment on above:Performed By: #### UAMIC #### [facility] [address] [place] [address] Dr. Richa James NETTEDT851 mg/dlAbnormalNEGATIVE/ TRACEThe [facility] on above:Performed By: #### UAMIC #### [facility] [address] [place] [address] Dr. Richa Floresbilinogen Qn (U)0.2 {Marley'U}/dLNormal0.2 - 1.0The [facility] CenterComment on above:Performed By: #### UAMIC #### [facility] [address] [place] [address] Dr. Richa Shafer SEENNormalNONE SEENGreen Cross HospitalComment on above: Performed By: #### UAMIC #### [facility] [address] [place] [address] Dr. Richa Copeland ACID SERUMon 74-80-0152Hauvw [Mass/Vol]5.3 mg/dLNormal 2.6-6.0The [facility] CenterComment on above:Performed By: #### MG, RENAL, URIC #### [facility] [address] [place] [address] Dr. Richa Domingo T PROTEIN CREAT RATIOon 79-95-6816Mbrajiq (U) [Mass/Vol] 113.5 mg/dLCritically high<=12.0[facility] HospitalComrehabilitation institute of [facility] on above:Performed By: #### MG, RENAL, URIC #### [facility] [address] [place] [address] Dr. Richa Pascal PROT CREAT RAT1.55NoOhioHealth Southeastern Medical CenterComment on above: Performed By: #### MG, RENAL, URIC #### [facility] [address] [place] [address] Dr. Richa Domingo CREAT73.37 mg/wBJfxmne48.00-300.00[facility] Comment on above:Performed By: #### MG, RENAL, URIC #### [facility] [address] [place] [address] Dr. Richa CheemaVITAMIN D 25 OHon 00-43-3925MSM D 25-OH42.8 ng/mLNormalThe [facility] CenterComment on above:Performed By: #### HH #### [facility] [address] [place] [address] Dr. Richa Ferguson RANGESSEE BELOWProtestant Deaconess HospitalComment on above: Result Comment: <20 ng/mL Vit D deficient 20 - <30 ng/mL Vit D insufficient 30 - 100 ng/mL Vit D sufficient >100 ng/mL Potential ToxicityPerformed By: #### HH #### [facility] [address] [address] [address] Richa CheemaAlbumin [Mass/volume] in Serum or PlasmaOrdered By: Claire Choi on 27-22-4119Lujjiup [Mass/Vol]3.6 g/dL2.9-4.4FWVUMedicine Harrison Community HospitalLaboratory - Hematology and Cell countsOrdered By: Claire Choi on 65-37-8797Yxxljmvpe RBC/100 WBC (Bld) [Ratio]0.1 %0-0.5FWVUMedicine Harrison Community HospitalNo Panel InformationOrdered By: Claire Choi on 52-48-1217Fidaxxk Electrophoresis M-SpikeNot observed g/dLNot ObservedMercy Health Fairfield HospitalProtein Electrophoresis NoteSee comment.[facility] HospitalComment on above:Protein electrophoresis scan will follow via computer,mail, or cafeteria cashier delivery.Performed at: [facility] [id number] Director: Elpidio Delgado PhD, Phone: [phone] %0-0.5FWVUMedicine Harrison Community HospitalProtein [Mass/volume] in Serum or PlasmaOrdered By: Claire Choi on 79-65-0722Sgicrik [Mass/Vol]6.1 g/dL6.0-8.5FSalem City Hospitalerum globulin measurement (mass/volume)Ordered By: Calire hCoi on 70-32-7879Vltwwsyb (S) [Mass/Vol] 2.5 g/dL2.2-3.9[facility] City Hospitalerum or plasma albumin/globulin mass ratioOrdered By: Claire Choi on 43-72-5477Xritbxv/Globulin [Mass ratio]1.4 {ratio}0.7-1.7FSalem City Hospitalerum or plasma alpha 1 globulin measurement by electrophoresis (mass/volume)Ordered By: Claire Choi on 59-98-1412Kmerw 1 globulin Elph [Mass/Vol]0.2 g/dL0.0-0.4FSalem City Hospitalerum or plasma alpha 2 globulin measurement by electrophoresis (mass/volume)Ordered By: Claire Choi on 31-19-3058Fdsbf 2 globulin Elph [Mass/Vol]0.9 g/dL0.4-1.0[facility] City Hospitalerum or plasma beta globulin measurement by electrophoresis (mass/volume)Ordered By: Claire Choi on 67-79-2744Jiul globulin Elph [Mass/Vol]0.8 g/dL0.7-1.3 [facility] Hospitalerum or plasma gamma globulin measurement by electrophoresis (mass/volume)Ordered By: Claire Choi on 40-13-3213Bscvh globulin Elph [Mass/Vol]0.6 g/dL0.4-1.8[facility] HospitalAlbumin [Mass/volume] in Serum or PlasmaOrdered By: Claire Choi on 07-13-2022 Albumin [Mass/Vol]3.4 g/dL2.9-4.4FWVUMedicine Harrison Community HospitalImmunoglobulin light chains.kappa.free [Mass/volume] in SerumOrdered By: Claire Choi on 01-64-1593Irfewbrepitaut light chains.kappa.free (S) [Mass/Vol]21.9 mg/L3.3-19.4 [facility] HospitalImmunoglobulin light chains.kappa.free/Immunoglobulin light chains.lambda.free [MassOrdered By: Claire Choi on 33-34-9720Siepbogmplqvvj light chains.kappa.free/Immunoglobulin light chains.lambda.free (S) [Mass ratio]1.87 0.26-1.65Mer[facility] Fairfield HospitalComment on above:Performed at: - Lab[address] [id number] Pharmacy Helper: Elpidio Delgado PhD, Phone: [phone] light chains.lambda.free [Mass/volume] in Serum or PlasmaOrdered By: Claire Choi on 54-12-4597Dundsuchverfpu light chains.lambda.free [Mass/Vol]11.7 mg/L 5.7-26.3FWVUMedicine Harrison Community HospitalLaboratory - Chemistry and Chemistry - challengeOrdered By: Claire Choi on 99-56-6592Wriubtq [Mass/Vol]0.2 g/dL Not ObservedMercy Health Fairfield HospitalNo Panel InformationOrdered By: Claire Choi on 21-07-4067Ryjbanf Electrophoresis NoteSee comment.[facility] Fairfield HospitalComment on above:Protein electrophoresis scan will follow via computer, mail, or cafeteria cashier delivery. Performed at: [facility] Lab[address] [id number] Pharmacy Helper: Elpidio Delgado PhD, Phone: [phone] [Mass/volume] in Serum or PlasmaOrdered By: Claire Choi on 38-04-4211Ffayoiy [Mass/Vol]6.2 g/dL6.0-8.5FSalem City Hospitalerum globulin measurement (mass/volume)Ordered By: Claire Choi on 62-16-6541Vwyzsvku (S) [Mass/Vol] 2.8 g/dL2.2-3.9[facility] Hospitalerum or plasma albumin/globulin mass ratioOrdered By: Claire Choi on 77-87-1608Fqjarih/Globulin [Mass ratio]1.2 {ratio}0.7-1.7FSalem City Hospitalerum or plasma alpha 1 globulin measurement by electrophoresis (mass/volume)Ordered By: Claire Choi on 32-03-7188Pgnoy 1 globulin Elph [Mass/Vol]0.2 g/dL0.0-0.4FSalem City Hospitalerum or plasma alpha 2 globulin measurement by electrophoresis (mass/volume)Ordered By: Claire Choi on 73-04-3967Ffrpi 2 globulin Elph [Mass/Vol]0.9 g/dL0.4-1.0[facility] Hospitalerum or plasma beta globulin measurement by electrophoresis (mass/volume)Ordered By: Claire Choi on 76-31-8259Vlmq globulin Elph [Mass/Vol]1.0 g/dL0.7-1.3 [facility] Hospitalerum or plasma gamma globulin measurement by electrophoresis (mass/volume)Ordered By: Claire Choi on 17-98-9387Ndhtc globulin Elph [Mass/Vol]0.8 g/dL0.4-1.8[facility] HospitalCBC AUTO DIFFon 43-00-4053PBBQ #0.0 103/ulNormal0.0-0.1The [facility] CenterComment on above:Performed By: #### MG, RENAL, URIC #### [facility] [address] [place] [address] Dr. Richa CheemaBasophils/100 WBC (Bld)0.2 %Normal0.2-2.0The [facility] Comment on above:Performed By: #### MG, RENAL, URIC #### [facility] [address] [place] [address] Dr. Richa Mark #0.1 103/ulNormal0.0-0.7The [facility] CenterComment on above: Performed By: #### MG, RENAL, URIC #### [facility] [address] [place] [address] Dr. Richa Madrigalosinophils/100 WBC (Bld)1.5 %Normal0.9-7.0The [facility] Comment on above:Performed By: #### MG, RENAL, URIC #### [facility] [address] [place] [address] Dr. Richa Madrigalrythrocyte distribution width (RBC) [Ratio]13.8 %Cssbia59.0-15.0 The [facility] CenterComment on above:Performed By: #### MG, RENAL, URIC #### [facility] [address] [place] [address] Dr. Richa CheemaHematocrit (Bld) [Volume fraction]38.4 %Aflisz66.0-48.0The [facility] CenterComment on above:Performed By: #### MG, RENAL, URIC #### [facility] [address] [place] [address] Dr. Richa CheemaHemoglobin (Bld) [Mass/Vol]13.0 g/xYHjfrke37.0-16.0The [facility] CenterComment on above:Performed By: #### MG, RENAL, URIC #### [facility] [address] [place] [address] Dr. Richa Ring #0.01 10e3/ulNormal0.00-0.03The [facility] CenterComment on above:Performed By: #### MG, RENAL, URIC #### [facility] [address] [place] [address] Dr. Richa Ring %0.1 %Normal0.0-0.5The [facility] CenterComment on above: Performed By: #### MG, RENAL, URIC #### [facility] [address] [place] [address] Dr. Richa Lloyd #3.5 103/ulNormal1.2-3.8The [facility] CenterComment on above:Performed By: #### MG, RENAL, URIC #### [facility] [address] [place] [address] Dr. Richa Johnstonhocytes/100 WBC (Bld)42.4 %Hepbsq07.5-60.0The [facility] CenterComment on above:Performed By: #### MG, RENAL, URIC #### [facility] [address] [place] [address] Dr. Richa CopelandUAL DIFF REQNONormalThe [facility] CenterComment on above: Performed By: #### MG, RENAL, URIC #### [facility] [address] [place] [address] Dr. Richa Last (RBC) [Entitic mass]31.8 tyKxytev71.7-34.0The [facility] CenterComment on above:Performed By: #### MG, RENAL, URIC #### [facility] [address] [place] [address] Dr. Richa Last (RBC) [Mass/Vol]33.9 g/qTQwubfk91.9-35.2The [facility] CenterComment on above:Performed By: #### MG, RENAL, URIC #### [facility] [address] [place] [address] Dr. Richa Last (RBC) [Entitic vol]93.9 tNXaucgc30.0-99.0The [facility] CenterComment on above:Performed By: #### MG, RENAL, URIC #### [facility] [address] [place] [address] Dr. Richa Rios #0.5 103/ulNormal0.3-0.8The [facility] CenterComment on above:Performed By: #### MG, RENAL, URIC #### [facility] [address] [place] [address] Dr. Richa Ruelasocytes/100 WBC (Bld)6.6 %Normal1.7-12.0The [facility] Comment on above:Performed By: #### MG, RENAL, URIC #### [facility] [address] [place] [address] Dr. Richa Glez #4.0 103/ulNormal1.4-6.5The [facility] CenterComment on above:Performed By: #### MG, RENAL, URIC #### [facility] [address] [place] [address] Dr. Richa Pattonutrophils/100 WBC (Bld)49.2 %Elrnfn20.0-75.0The [facility] CenterComment on above:Performed By: #### MG, RENAL, URIC #### [facility] [address] [place] [address] Dr. Richa Alegria mean volume (Bld) [Entitic vol]10.9 fLNormal9.5-13.5The [facility] CenterComment on above:Performed By: #### MG, RENAL, URIC #### [facility] [address] [place] [address] Dr. Richa CheemaPLT193 103/biKwgxuq252-324Xls [facility] CenterComment on above: Performed By: #### MG, RENAL, URIC #### [facility] [address] [place] [address] Dr. Richa CheemaRBC4.09 106/ulCritically low4.20-5.40The [facility] CenterComment on above:Performed By: #### MG, RENAL, URIC #### [facility] [address] [place] [address] Dr. Richa CheemaWBC8.2 103/ulNormal4.0-11.0The [facility] CenterComment on above: Performed By: #### MG, RENAL, URIC #### [facility] [address] [place] [address] Dr. Richa Owens 14(COMP METB)on 18-58-9968Lncwwmy [Mass/Vol]3.7 g/dLNormal 3.4-5.0The [facility] CenterComment on above:Performed By: #### CMP #### [facility] [address] [place] [address] Dr. Richa CheemaAlbumin/Globulin [Mass ratio]1.2 {ratio}NormalThe [facility] CenterComment on above:Performed By: #### CMP #### [facility] [address] [place] [address] Dr. Richa JimenezP [Catalytic activity/Vol]105 U/WWntdcv36-475Axk [facility] CenterComment on above:Performed By: #### CMP #### [facility] [address] [place] [address] Dr. Richa Vang [Catalytic activity/Vol]18 U/ATkobqp34-18Cch [facility] CenterComment on above:Performed By: #### CMP #### [facility] [address] [place] [address] Dr. Richa Mejia gap [Moles/Vol]11.4 mmol/LNormalThe [facility] Comment on above:Performed By: #### CMP #### [facility] [address] [place] [address] Dr. Richa CheemaAST [Catalytic activity/Vol]12 U/LCritically kxh39-63Epk [facility] CenterComment on above:Performed By: #### CMP #### [facility] [address] [place] [address] Dr. Richa CheemaBilirubin [Mass/Vol]0.3 mg/dLNormal0.2-1.0The [facility] Comment on above:Performed By: #### CMP #### [facility] [address] [place] [address] Dr. Richa CheemaCalcium [Mass/Vol]8.8 mg/dLNormal8.5-10.1[facility] Comment on above:Performed By: #### CMP #### [facility] [address] [place] [address] Dr. Richa CheemaChloride [Moles/Vol]104 mmol/IWfitnt83-647Ugn [facility] Comment on above:Performed By: #### CMP #### [facility] [address] [address] [address] Richa CheemaCO2 [Moles/Vol]26.9 mmol/VOydyoi37.0-32.0The [facility] Comment on above:Performed By: #### CMP #### [facility] [address] [address] [address] Richa CheemaCreatinine [Mass/Vol]2.38 mg/dLCritically high0.55-1.02The [facility] CenterComment on above:Performed By: #### CMP #### [facility] [address] [place] [address] Dr. Chaudhry ChangEGFR-AF EYFINUEJ79 mL/min/1.56g7Tpudjmspom low>=60The [facility] CenterComment on above:Performed By: #### CMP #### [facility] [address] [place] [address] Dr. Richa MadrigalGFR-NON AF QRSISQZX08 mL/min/1.42h9Hyvubtqxap low>=60The [facility] CenterComment on above:Performed By: #### CMP #### [facility] [address] [place] [address] Dr. Richa CheemaGlobulin (S) [Mass/Vol]3.1 g/dLNormalThe [facility] CenterComment on above:Performed By: #### CMP #### [facility] [address] [address] [address] Richa CheemaGlucose [Mass/Vol]146 mg/dLCritically nhhi47-677Chm [facility] CenterComment on above:Performed By: #### CMP #### [facility] [address] [place] [address] Dr. Richa CheemaPotassium [Moles/Vol]4.3 mmol/LNormal3.5-5.1The [facility] Comment on above:Performed By: #### CMP #### [facility] [address] [place] [address] Dr. Richa CheemaProtein [Mass/Vol]6.8 g/dLNormal6.4-8.2The [facility] Comment on above:Performed By: #### CMP #### [facility] [address] [address] [address] Richa CheemaSodium [Moles/Vol]138 mmol/LYpljzi406-951Enx [facility] Comment on above:Performed By: #### CMP #### [facility] [address] [address] [address] Richa CheemaUrea nitrogen [Mass/Vol]31.0 mg/dLCritically high7.0-18.0The [facility] CenterComment on above:Performed By: #### CMP #### [facility] [address] [address] [address] Richa Torres nitrogen/Creatinine [Mass ratio]13.0 mg/mgNormalThe [facility] CenterComment on above:Performed By: #### CMP #### [facility] [address] [address] [address] Richa CheemaPTH INTACTon 60-44-3190GYH, Kkjhzk98 pg/mLCritically qlxn79-76Tpj [facility] CenterComment on above:Performed By: #### HH #### [facility] [address] [place] [address] Dr. Richa Saavedra D 25-OH LABCORPon 00-68-8730Cjqfbxl D, 25-Jjpnwia53.8 ng/mL Munhxt65.0-100.0The [facility] Medical CenterComment on above:Result Comment: Vitamin D deficiency has been defined by the [place] [employer] and an Endocrine Society practice guideline as a level of serum 25-OH vitamin D less than 20 ng/mL (1,2). The Endocrine Society went on to further define vitamin D insufficiency as a level between 21 and 29 ng/mL (2). 1. IOM ([place] [employer]). 2010. Dietary reference intakes for calcium and D. [place]: The National Academies Press. 2. Reji MF, Caro [place], Marguerite MCMAHON, et al. Evaluation, treatment, and prevention of vitamin D deficiency: an Endocrine Society clinical practice guideline. JCEM. 2011 May; 96(7):1911-30.Performed By: #### MG, RENAL, URIC #### [facility] [address] [place] [address] Dr. Richa CheemaHEMOGRAM AND PLATELon 28-43-0101Egfheydatm (Bld) [Volume fraction]39.4 %Ufxehe22.0-48.0The [facility] CenterComment on above:Performed By: #### HH #### [facility] [address] [place] [address] Dr. Richa CheemaHemoglobin (Bld) [Mass/Vol]13.1 g/dRBxjumj40.0-16.0The [facility] CenterComment on above:Performed By: #### HH #### [facility] [address] [place] [address] Dr. Richa LastH (RBC) [Entitic mass]31.6 ojUubtce31.7-34.0The [facility] CenterComment on above:Performed By: #### HH #### [facility] [address] [place] [address] Dr. Richa CheemaMCHC (RBC) [Mass/Vol]33.2 g/oSUhqrzh66.9-35.2The [facility] CenterComment on above:Performed By: #### HH #### [facility] [address] [place] [address] Dr. iRcha LastV (RBC) [Entitic vol]94.9 kUIfotnq66.0-99.0The [facility] CenterComment on above:Performed By: #### HH #### [facility] [address] [place] [address] Dr. Richa CheemaPLT186 103/fxFixjwc319-741Cgc [facility] CenterComment on above: Performed By: #### HH #### [facility] [address] [place] [address] Dr. Richa CheemaRBC4.15 106/ulCritically low4.20-5.40The [facility] Centerment on above:Performed By: #### HH #### [facility] [address] [place] [address] Dr. Richa CheemaWBC9.5 103/ulNormal4.0-11.0The [facility] CenterComment on above: Performed By: #### HH #### [facility] [address] [place] [address] Dr. Richa CheemaMAGNESIUMon 62-92-0753Rgmwghpwb [Mass/Vol]1.9 mg/dLNormal1.8-2.4 The [facility] CenterComment on above:Performed By: #### MG, RENAL, URIC #### [facility] [address] [place] [address] Dr. Richa HernandezAL FUNCTION PANELon 67-99-9839Edfmvcl [Mass/Vol]3.6 g/dLNormal 3.4-5.0The [facility] CenterComment on above:Performed By: #### MG, RENAL, URIC #### [facility] [address] [place] [address] Dr. Richa CheemaCalcium [Mass/Vol]8.6 mg/dLNormal8.5-10.1The [facility] Comment on above:Performed By: #### MG, RENAL, URIC #### [facility] [address] [place] [address] Dr. Richa CheemaChloride [Moles/Vol]105 mmol/INnffvy06-236Bpk [facility] Comment on above:Performed By: #### MG, RENAL, URIC #### [facility] [address] [place] [address] Dr. Richa CheemaCO2 [Moles/Vol]25.5 mmol/YLqjeiz73.0-32.0The [facility] Comment on above:Performed By: #### MG, RENAL, URIC #### [facility] [address] [place] [address] Dr. Richa CheemaCreatinine [Mass/Vol]2.19 mg/dLCritically high0.55-1.02The [facility] CenterComment on above:Performed By: #### MG, RENAL, URIC #### [facility] [address] [place], [place] [address] Dr. Chaudhry ChangEGFR-AF SEGRYJOU72 mL/min/1.91o6Jxaabhzsjc low>=60The [facility] CenterComment on above:Performed By: #### MG, RENAL, URIC #### [facility] [address] [place] [address] Dr. Richa MadrigalGFR-NON AF HNPGYDFA92 mL/min/1.18w5Gkzsytxwoi low>=60The [facility] CenterComment on above:Performed By: #### MG, RENAL, URIC #### [facility] [address] [address] [address] Richa CheemaGlucose [Mass/Vol]156 mg/dLCritically yjfi29-591Obp [facility] CenterComment on above:Performed By: #### MG, RENAL, URIC #### [facility] [address] [place] [address] Dr. Richa CheemaPhosphate [Mass/Vol]3.8 mg/dLNormal2.6-4.7The [facility] Comment on above:Performed By: #### MG, RENAL, URIC #### [facility] [address] [address] [address] Richa CheemaPotassium [Moles/Vol]4.7 mmol/LNormal3.5-5.1The [facility] Comment on above:Performed By: #### MG, RENAL, URIC #### [facility] [address] [place] [address] Dr. Richa CheemaSodium [Moles/Vol]139 mmol/THhplhk204-338Kqn [facility] Comment on above:Performed By: #### MG, RENAL, URIC #### [facility] [address] [address] [address] Richa CheemaUrea nitrogen [Mass/Vol]25.0 mg/dLCritically high7.0-18.0The [facility] Centerment on above:Performed By: #### MG, RENAL, URIC #### [facility] [address] [place] [address] Dr. Richa CheemaUA RANDOM W/MICROSCOPICon 19-71-9676ACAYPYUBLPAJ SEENNormalNONE SEENThe [facility]echobee HospitalComment on above:Performed By: #### HH #### [facility] [address] [address] [address] Richa CheemaBilirubin Ql (U)NegativeNormalNEGSCCI Hospital [facility] Comment on above:Performed By: #### HH #### [facility] [address] [address] [address] Richa RenNONE SEENNormalNONE SEENGreen Cross HospitalComment on above:Performed By: #### HH #### [facility] [address] [address] [address] Richa CheemaClarity (U)CLEARNormalCLEARGreen Cross HospitalComment on above: Performed By: #### HH #### [facility] [address] [address] [address] Richa CheemaColor (U)LT. YELLOWNormalYELLOWGreen Cross HospitalComment on above:Performed By: #### HH #### [facility] [address] [address] [address] Richa CheemaCrystals LM Nom (Urine sed)NONE SEENNormalNONE SEENGreen Cross HospitalComment on above:Performed By: #### HH #### [facility] [address] [address] [address] Chaudhry ChangEpithelial cells LM Ql (Urine sed)FEWAbnormalNONE SEEN /RAREThe [facility] CenterComment on above:Performed By: #### HH #### [facility] [address] [address] [address] Richa CheemaGlucose Ql (U)NegativeNormalNEGATIVEGreen Cross HospitalComment on above:Performed By: #### HH #### [facility] [address] [address] [address] Richa CheemaHemoglobin Ql (U)NegativeNormalNEGSCCI Hospital [facility] Comment on above:Performed By: #### HH #### [facility] [address] [address] [address] Richa CheemaKetones Ql (U)NegativeNormalNEGATIVEThe [facility] CenterComment on above:Performed By: #### HH #### [facility] [address] [address] [address] Richa CheemaLEUKOCYTESNegativeNormalNEGATIVEThe [facility] CenterComment on above:Performed By: #### HH #### [facility] [address] [place] [address] Dr. Richa CheemaMUCOUSNONE SEENNormalNONE SEENThe [facility] CenterComment on above:Performed By: #### HH #### [facility] [address] [place] [address] Dr. Richa Ngtrite Ql (U)NegativeNormalNEGATIVEThe [facility] CenterComment on above:Performed By: #### HH #### [facility] [address] [place] [address] Dr. Richa CheemapH (U)7.5 [pH]Normal5-9The [facility] CenterComment on above: Performed By: #### HH #### [facility] [address] [place] [address] Dr. Richa CheemaRBCNONE SEENAbnormal0-2The [facility] CenterComment on above: Performed By: #### HH #### [facility] [address] [place] [address] Dr. Richa CheemaSPEC GRAVITY1.852Dwjpdf1.005-<=1.025The [facility] Centerment on above:Performed By: #### HH #### [facility] [address] [place] [address] Dr. Richa James WRODBKB39 mg/dlAbnormalNEGATIVE/ TRACEThe [facility] Comment on above:Performed By: #### HH #### [facility] [address] [place] [address] Dr. Richa Floresbilinogen Qn (U)0.2 {Marley'U}/dLNormal0.2 - 1.0The [facility] CenterComment on above:Performed By: #### HH #### [facility] [address] [place] [address] Dr. Richa Shafer SEENNormalNONE SEENThe [facility] CenterComment on above: Performed By: #### HH #### [facility] [address] [place] [address] Dr. Richa Copeland ACID SERUMon 20-32-4057Yqtrg [Mass/Vol]5.4 mg/dLNormal 2.6-6.0The [facility] CenterComment on above:Performed By: #### MG, RENAL, URIC #### [facility] [address] [place] [address] Dr. Richa Domingo T PROTEIN CREAT RATIOon 14-95-3147Mvgjtur (U) [Mass/Vol] 72.9 mg/dLCritically high<=12.0The [facility] CenterComment on above:Performed By: #### URTPCR #### [facility] [address] [place] [address] Dr. Richa Pascal PROT CREAT RAT0.90NormalThe [facility] CenterComment on above: Performed By: #### URTPCR #### [facility] [address] [place] [address] Dr. Richa Domingo CREAT80.68 mg/tPTkgvkc94.00-300.00The [facility] Comment on above:Performed By: #### URTPCR #### [facility] [address] [place] [address] Dr. Richa Galdamez Visit (Cardiology)on 98-92-5074Cwtesg-up visit Diagnoses/Problems Assessed Persistent atrial fibrillation with [...] treatment plan.; Status:Complete - Retrospective Authorization; Done: [id number] Aortic valve regurgitation, nonrheumatic, HTN (hypertension) Basic Metabolic Panel; Status:Active - Retrospective Authorization; Requested for:[id number]; Class 1 obesity with body mass index (BMI) of 30.0 to 30.9 in adult Healthy Weight Tips; Status:Complete - Retrospective Authorization; Done: [id number] Some eating tips that can help you lose weight.; Status:Complete - Retrospective Authorization; Done: 12Vau9128 HTN (hypertension) Renew: amLODIPine Besylate 2.5 MG Oral Tablet; TAKE 1 TABLET DAILY Renew: Carvedilol 12.5 MG Oral Tablet; Take 1 tablet twice a day Hyperlipemia Renew: Atorvastatin Calcium 40 MG Oral Tablet; TAKE 1 TABLET DAILY ALT - Alanine Aminotransferase, Serum; Status:Active - Retrospective Authorization; Requested for:76Snp8784; AST; Status:Active - Retrospective Authorization; Requested for:84Zzm0109; Lipid Panel; Status:Active - Retrospective Authorization; Requested for:67Tfn4560; Persistent atrial fibrillation with RVR Renew: Aspirin EC 81 MG Oral Tablet Delayed Release; TAKE 1 TABLET DAILY Renew: Xarelto 15 MG Oral Tablet; Take 1 tablet daily SocHx: Never a smoker Tobacco Use Screening; Status:Complete; Done: 00Urs2904 Patient Instructions Please bring all medicines, vitamins, [...] recurrence. She did have noninvasive assessment at [facility], which was negative. Couple of years [...] MG Oral TabletTake 1 (more content not included)...NormalUH TouchworksTobacco Screening.on 48-58-8564Zwazr depression screening assessmentNo [facility] [address] DO Work Phone: Fall risk assessmenta) No falls within the last year [facility] 250 DO Work Phone: Tobacco use status CPHSb) NoMP-[facility] [place] 250 DO Work Phone: FREE LIGHT CHAINS PLUS RATIOon [phone] Luckey Lt Chains,S24.1 mg/LCritically high3.3-19.4The [facility] CenterComment on above: Performed By: #### MG, RENAL, URIC #### [facility] [address] [place], [place] [address] Dr. Richa CheemaFree Lambda Lt Chains,S17.1 mg/LNormal5.7-26.3The [facility] CenterComment on above:Performed By: #### MG, RENAL, URIC #### [facility] [address] [place], [place] [address] Dr. Richa Guadalupeppa/Lambda Ratio, S1.08Sckzdo8.26-1.65The [facility] Comment on above:Performed By: #### MG, RENAL, URIC #### [facility] [address] [place], [place] [address] Dr. Richa CheemaAlbumin [Mass/volume] in Serum or PlasmaOrdered By: Claire Choi on 16-23-4635Jdhaqjv [Mass/Vol]3.5 g/dL3.2-5.5FWVUMedicine Harrison Community HospitalBasophils Auto (Bld) [#/Vol]Ordered By: Claire Choi on 70-37-9469Opmlfgxov (Bld) [#/Vol]0.1 10*3/uL0.0-0.2FWVUMedicine Harrison Community HospitalBasophils/100 WBC Auto (Bld)Ordered By: Claire Choi on 05-31-2022 Basophils/100 WBC (Bld)0.9 %.[facility] HospitalBlood hemoglobin measurement (mass/volume)Ordered By: Claire Choi on 55-59-2417Nikzmpbaev (Bld) [Mass/Vol]13.5 g/dL11.8-15.4FWVUMedicine Harrison Community HospitalBlood leukocytes automated count (number/volume)Ordered By: Claire Choi on 14-69-6299WAJ (Bld) [#/Vol]9.6 10*3/uL4.5-11.0[facility] Creatinine and Glomerular filtration rate.predicted panel (S/P/Bld)Ordered By: Claire Choi on 64-21-9533Oublcbnkwl [Mass/Vol]2.38 mg/dL0.44-1.03[facility] HospitalEosinophils Auto (Bld) [#/Vol]Ordered By: Claire Choi on 18-48-0351Dlvulhdebsx (Bld) [#/Vol]0.1 10*3/uL0.0-0.45[facility] HospitalEosinophils/100 WBC Auto (Bld)Ordered By: Claire Choi on 36-94-7644Vxvrbitditd/100 WBC (Bld)1.0 %.[facility] HospitalErythrocyte distribution width Auto (RBC) [Ratio]Ordered By: Claire Choi on 73-87-9786Nbrdosgobea distribution width (RBC) [Ratio]13.8 % 11.9-15.3FWVUMedicine Harrison Community HospitalEstimated glomerular filtration rate (GFR) non- AmericanOrdered By: Claire Choi on 98-52-4535QIN/1.73 sq M.predicted among non-blacks MDRD (S/P/Bld) [Vol rate/Area]20 mL/MinMercy Health Fairfield HospitalGlobulin Calc (S) [Mass/Vol]Ordered By: Claire Choi on 58-73-1703Yxagceks (S) [Mass/Vol]2.7 g/dLMercy Health Fairfield Hospital Hematocrit Auto (Bld) [Volume fraction]Ordered By: Claire Choi on 65-26-5522Yykcbouufw (Bld) [Volume fraction]41.0 %34.0-46.4FWVUMedicine Harrison Community HospitalLaboratory - Hematology and Cell countsOrdered By: Claire Choi on 07-95-7424Hupnvkuxy RBC/100 WBC (Bld) [Ratio]0.1 %0-0.5FWVUMedicine Harrison Community HospitalLymphocytes Auto (Bld) [#/Vol]Ordered By: Claire Choi on 83-77-0557Xfkcpmiutrt (Bld) [#/Vol]3.1 10*3/uL1.00-4.8[facility] HospitalLymphocytes/100 WBC Auto (Bld)Ordered By: Claire Choi on 82-15-5062Tnjelacpnfv/100 WBC (Bld)32.7 %.[facility] HospitalH Auto (RBC) [Entitic mass]Ordered By: Claire Choi on 15-60-9284JVR (RBC) [Entitic mass]31.0 pg24.7-34.3FWVUMedicine Harrison Community HospitalMCHC Auto (RBC) [Mass/Vol]Ordered By: Claire Choi on 54-08-3814TESH (RBC) [Mass/Vol]33.0 g/dL32.0-35.0[facility] HospitalMCV Auto (RBC) [Entitic vol]Ordered By: Claire Choi on 51-72-8070QKL (RBC) [Entitic vol]94.0 kB49-709KhxvnyiqqMercy Health Fairfield HospitalMonocytes Auto (Bld) [#/Vol] Ordered By: Claire Choi on 56-61-0138Bjxofhlls (Bld) [#/Vol]0.6 10*3/uL 0.0-0.8[facility] HospitalMonocytes/100 WBC Auto (Bld)Ordered By: Claire Choi on 86-94-3890Yycyjuawo/100 WBC (Bld)6.0 %.[facility] HospitalNeutrophils Auto (Bld) [#/Vol]Ordered By: Claire Choi on 72-36-7803Wubwapxznxf (Bld) [#/Vol]5.7 10*3/uL1.8-7.7FWVUMedicine Harrison Community HospitalNeutrophils/100 WBC Auto (Bld)Ordered By: Claire Choi on 05-31-2022 Neutrophils/100 WBC (Bld)59.4 %.[facility] HospitalNo Panel InformationOrdered By: Claire Choi on 34-15-6815Mzdcvuxdm GFR ()24 mL/MinMercy Health Fairfield HospitalComment on above:GFR estimated reference range: According to KDOQI guidelines, <60 ml/min/1.73m2 is sufficient todiagnose a patient with chronic kidney disease.Pharmacy Creatinine Clearance (Chem20.55[facility] HospitalPROTEIN ELECTROPHERESISon 29-84-5718Nsvvhro [Mass/Vol]3.8 g/dLNormal2.9-4.4The [facility] CenterComment on above:Performed By: #### PRTELEC #### [facility] [address] [address] [address] Richa CheemaAlbumin/Globulin [Mass ratio]1.5 {ratio}Normal0.7-1.7The [facility] CenterComment on above:Performed By: #### PRTELEC #### [facility] [address] [place] [address] Dr. Richa CheemaQgejgXujyj-6-Hvlguujm4.2 g/dLNormal0.0-0.4The [facility] CenterComment on above:Performed By: #### PRTELEC #### [facility] [address] [address] [address] Richa CheemaZmijtTxhci-9-Faovupat4.9 g/dLNormal0.4-1.0The [facility] CenterComment on above:Performed By: #### PRTELEC #### [facility] [address] [address] [address] Richa CheemaBeta Globulin0.9 g/dLNormal0.7-1.3The [facility] CenterComment on above:Performed By: #### PRTELEC #### [facility] [address] [place] [address] Dr. Richa CheemaGamma Globulin0.6 g/dLNormal0.4-1.8The [facility] CenterComment on above:Performed By: #### PRTELEC #### [facility] [address] [place] [address] Dr. Richa CheemaGlobulin (S) [Mass/Vol]2.5 g/dLNormal2.2-3.9The [facility] Comment on above:Performed By: #### PRTELEC #### [facility] [address] [address] [address] Richa CheemaM-SpikeNot ObservedNormalNot ObservedGreen Cross HospitalComment on above:Performed By: #### PRTELEC #### [facility] [address] [address] [address] Richa CheemaPDF.NormalThe [facility] CenterComment on above:Performed By: #### PRTELEC #### [facility] [address] [address] [address] Richa CheemaPleluz note:CommentNormalThe [facility] CenterComment on above: Result Comment: Protein electrophoresis scan will follow via computer, mail, or cafeteria cashier delivery.Performed By: #### PRTELEC #### [facility] [address] [address] [address] Richa CheemaProtein [Mass/Vol]6.3 g/dLNormal6.0-8.5ThMercy Health Kings Mills Hospital Comment on above:Performed By: #### PRTELEC #### [facility] [address] [address] [address] Richa CheemaPlatedennys mean volume Auto (Bld) [Entitic vol]Ordered By: Claire Choi on 99-40-5802Mooxdivw mean volume (Bld) [Entitic vol]9.4 fL6.3-10.7 [facility] HospitalPlatelets Auto (Bld) [#/Vol]Ordered By: Claire Choi on 88-21-4691Bvixwfokf (Bld) [#/Vol]254 10*3/mC517-014QrigcdrznMercy Health Fairfield HospitalProtein [Mass/volume] in Serum or PlasmaOrdered By: Claire Choi on 14-18-3568Mwalgnb [Mass/Vol]6.2 g/dL6.1-7.9[facility] HospitalRBC Auto (Bld) [#/Vol]Ordered By: Claire Choi on 03-17-2538NAA (Bld) [#/Vol]4.37 10*6/uL3.60-5.00[facility] City Hospitalerum or plasma alanine aminotransferase measurement without P-5'-P (enzymatic activiOrdered By: Claire Choi on 80-40-5063HUP No additional P-5'-P [Catalytic activity/Vol]15 U/T01-46TnuuugasmEast Liverpool City Hospitalerum or plasma albumin/globulin mass ratioOrdered By: Claire Choi on 05-31-2022 Albumin/Globulin [Mass ratio]1.3 {ratio}[facility] Hospitalerum or plasma alkaline phosphatase measurement (enzymatic activity/volume)Ordered By: Claire Choi on 55-00-3177ITN [Catalytic activity/Vol]90 U/L32-92 [facility] Hospitalerum or plasma aspartate aminotransferase measurement (enzymatic activity/volume)Ordered By: Claire Choi on 43-45-7709WHT [Catalytic activity/Vol]19 U/L77-51WusqsyhwvEast Liverpool City Hospitalerum or plasma calcium measurement (mass/volume)Ordered By: Claire Choi on 10-81-2858Gttsmes [Mass/Vol]8.9 mg/dL8.2-10.2FSalem City Hospitalerum or plasma chloride measurement (moles/volume)Ordered By: Claire Choi on 21-96-3547Ijpgzmrb [Moles/Vol]106 mmol/S79-460ThkwxzmbiEast Liverpool City Hospitalerum or plasma glucose measurement (mass/volume)Ordered By: Claire Choi on 67-02-0429Qqqmjoc [Mass/Vol]151 mg/fW60-272KnhgwncpqMercy Health Fairfield HospitalComment on above:ADA recommended reference range Random Glucose Reference Range is dependent on time and content of last meal. Glucose of more than 200 mg/dL in a nonstressed, ambulatory subject supports the diagnosis of Diabetes Mellitus.Serum or plasma potassium measurement (moles/volume)Ordered By: Claire Choi on 69-90-1860Vjetcbxwm [Moles/Vol] 4.9 mmol/L3.5-5.1FSalem City Hospitalerum or plasma sodium measurement (moles/volume)Ordered By: Claire Choi on 77-99-7179Jezccy [Moles/Vol]135 mmol/S800-145FutsodqveEast Liverpool City Hospitalerum or plasma total bilirubin measurement (mass/volume)Ordered By: Claire Choi on 68-68-8526Ntoqxtsaq [Mass/Vol]0.7 mg/dL0.3-1.2FWVUMedicine Harrison [facility] Hospital Serum or plasma total carbon dioxide measurement (moles/volume)Ordered By: Claire Choi on 86-46-8473KC2 [Moles/Vol]20.9 mmol/L22.0-30.0[facility] Hospitalerum or plasma urea nitrogen measurement (mass/volume) Ordered By: Claire Choi on 21-47-6212Qyfr nitrogen [Mass/Vol]28 mg/dL9-23 [facility] HospitalCBC AUTO DIFFon 96-07-4809ZLQO #0.0 103/ul Normal0.0-0.1The [facility] CenterComment on above:Performed By: #### MG, RENAL, URIC #### [facility] [address] [place] [address] Dr. Richa CheemaBasophils/100 WBC (Bld)0.4 %Normal0.2-2.0The [facility] Comment on above:Performed By: #### MG, RENAL, URIC #### [facility] [address] [address] [address] Richa Mark #0.1 103/ulNormal0.0-0.7The [facility] CenterComment on above: Performed By: #### MG, RENAL, URIC #### [facility] [address] [address] [address] Richa Madrigalosinophils/100 WBC (Bld)1.2 %Normal0.9-7.0The [facility] Comment on above:Performed By: #### MG, RENAL, URIC #### [facility] [address] [address] [address] Richa Madrigalrythrocyte distribution width (RBC) [Ratio]13.5 %Hxhrxs52.0-15.0 The [facility] CenterComment on above:Performed By: #### MG, RENAL, URIC #### [facility] [address] [place] [address] Dr. Richa CheemaHematocrit (Bld) [Volume fraction]41.3 %Dltsgv12.0-48.0The [facility] CenterComment on above:Performed By: #### MG, RENAL, URIC #### [facility] [address] [place] [address] Dr. Richa CheemaHemoglobin (Bld) [Mass/Vol]13.5 g/bYAaltev53.0-16.0The [facility] CenterComment on above:Performed By: #### MG, RENAL, URIC #### [facility] [address] [place] [address] Dr. Richa Ring #0.02 10e3/ulNormal0.00-0.03The [facility] CenterComment on above:Performed By: #### MG, RENAL, URIC #### [facility] [address] [place] [address] Dr. Richa Ring %0.2 %Normal0.0-0.5The [facility] CenterComment on above: Performed By: #### MG, RENAL, URIC #### [facility] [address] [place] [address] Dr. Richa Lloyd #2.6 103/ulNormal1.2-3.8The [facility] CenterComment on above:Performed By: #### MG, RENAL, URIC #### [facility] [address] [place] [address] Dr. Richa Johnstonhocytes/100 WBC (Bld)32.0 %Ojvxcv57.5-60.0The [facility] on above:Performed By: #### MG, RENAL, URIC #### [facility] [facility] [address] [place] [address] Dr. Richa CopelandUAL DIFF REQNONormalThe [facility] Medical CenterComment on above: Performed By: #### MG, RENAL, URIC #### [facility] [address] [place] [address] Dr. Richa Garcia (RBC) [Entitic mass]31.0 miPlrduc34.7-34.0The [facility] CenterComment on above:Performed By: #### MG, RENAL, URIC #### [facility] [address] [place] [address] Dr. Richa Last (RBC) [Mass/Vol]32.7 g/uSZolgtj12.9-35.2The [facility] CenterComment on above:Performed By: #### MG, RENAL, URIC #### [facility] [address] [place] [address] Dr. Richa Last (RBC) [Entitic vol]94.7 fRSsodws96.0-99.0The [facility] CenterComment on above:Performed By: #### MG, RENAL, URIC #### [facility] [address] [place] [address] Dr. Richa Rios #0.5 103/ulNormal0.3-0.8The [facility] CenterComment on above:Performed By: #### MG, RENAL, URIC #### [facility] [address] [place] [address] Dr. Richa Ruelasocytes/100 WBC (Bld)5.7 %Normal1.7-12.0The [facility] Comment on above:Performed By: #### MG, RENAL, URIC #### [facility] [address] [place] [address] Dr. Richa Glez #4.9 103/ulNormal1.4-6.5The [facility] CenterComment on above:Performed By: #### MG, RENAL, URIC #### [facility] [address] [place] [address] Dr. Richa Pattonutrophils/100 WBC (Bld)60.5 %Cgjjfk14.0-75.0The [facility] CenterComment on above:Performed By: #### MG, RENAL, URIC #### [facility] [address] [place] [address] Dr. Richa Alegria mean volume (Bld) [Entitic vol]10.6 fLNormal9.5-13.5The [facility] CenterComment on above:Performed By: #### MG, RENAL, URIC #### [facility] [address] [place] [address] Dr. Richa CheemaPLT229 103/usZsfulq844-044Slv [facility] on above: Performed By: #### MG, RENAL, URIC #### [facility] [address] [address] [address] Richa CheemaRBC4.36 106/ulNormal4.20-5.40The [facility] on above:Performed By: #### MG, RENAL, URIC #### [facility] [address] [address] [address] Richa CheemaWBC8.1 103/ulNormal4.0-11.0The [facility] on above: Performed By: #### MG, RENAL, URIC #### [facility] [address] [place] [address] Dr. Richa CheemaGLYCOHEMOGLOBIN A1Con 25-55-6335XSM RECOMMENDATIONSEE BELOWNormal The [facility] CenterComrehabilitation institute of [place] on above:Result Comment: ADA RECOMMENDED LIMIT 4.0 - 6.0 ADA THERAPEUTIC TARGET < 7.0 ACTION SUGGESTED > 7.0Performed By: #### HH #### [facility] [address] [place] [address] Dr. Richa CheemaGlucose [Mass/Vol]166 mg/dLNormalThe [facility] on above:Performed By: #### HH #### [facility] [address] [place] [address] Dr. Richa CheemaHbA1c (Bld) [Mass fraction]7.4 %Critically high4.5-6.2The [facility] on above:Performed By: #### HH #### [facility] [address] [place] [address] Dr. Richa CheemaPROF 14(COMP METB)on 16-71-7831Ivydbzg [Mass/Vol]3.4 g/dLNormal 3.4-5.0The [facility] on above:Performed By: #### MG, RENAL, URIC #### [facility] [address] [place] [address] Dr. Richa CheemaAlbumin/Globulin [Mass ratio]1.0 {ratio}NormalThe [facility]obee HospitalComment on above:Performed By: #### MG, RENAL, URIC #### [facility] [address] [address] [address] Richa Mascorro [Catalytic activity/Vol]111 U/IXvhjqp28-658Odr [facility] CenterComment on above:Performed By: #### MG, RENAL, URIC #### [facility] [address] [address] [address] Richa Vang [Catalytic activity/Vol]21 U/JFcvjmj71-75Moa [facility] CenterComment on above:Performed By: #### MG, RENAL, URIC #### [facility] [address] [address] [address] Richa Moratayaon gap [Moles/Vol]14.1 mmol/LNormalThe [facility] Comment on above:Performed By: #### MG, RENAL, URIC #### [facility] [address] [address] [address] Richa CheemaAST [Catalytic activity/Vol]13 U/LCritically eeu03-44Gfg [facility] Medical Centerment on above:Performed By: #### MG, RENAL, URIC #### [facility] [address] [address] [address] Richa CheemaBilirubin [Mass/Vol]0.3 mg/dLNormal0.2-1.0The [facility] Comment on above:Performed By: #### MG, RENAL, URIC #### [facility] [address] [address] [address] Richa CheemaCalcium [Mass/Vol]9.1 mg/dLNormal8.5-10.1The [facility] Comment on above:Performed By: #### MG, RENAL, URIC #### [facility] [address] [address] [address] Richa CheemaChloride [Moles/Vol]107 mmol/QLbtabl34-614Lwm [facility] Comment on above:Performed By: #### MG, RENAL, URIC #### [facility] [address] [address] [address] Richa CheemaCO2 [Moles/Vol]23.7 mmol/NVmophn23.0-32.0The [facility] Comment on above:Performed By: #### MG, RENAL, URIC #### [facility] [address] [place] [address] Dr. Richa CheemaCreatinine [Mass/Vol]2.56 mg/dLCritically high0.55-1.02The [facility] CenterComment on above:Performed By: #### MG, RENAL, URIC #### [facility] [address] [place] [address] Dr. Chaudhry ChangEGFR-AF NHDDUHIT94 mL/min/1.17h3Zqmtwvdbmy low>=60The [facility] CenterComment on above:Performed By: #### MG, RENAL, URIC #### [facility] [address] [place] [address] Dr. Richa MadrigalGFR-NON AF OOCTMQET94 mL/min/1.90v5Fiiakgxssz low>=60The [facility] CenterComment on above:Performed By: #### MG, RENAL, URIC #### [facility] [address] [place] [address] Dr. Richa CheemaGlobulin (S) [Mass/Vol]3.4 g/dLNormalThe [facility] CenterComment on above:Performed By: #### MG, RENAL, URIC #### [facility] [address] [place] [address] Dr. Richa CheemaGlucose [Mass/Vol]211 mg/dLCritically cmvc94-601Ptj [facility] CenterComment on above:Performed By: #### MG, RENAL, URIC #### [facility] [address] [place] [address] Dr. Richa CheemaPotassium [Moles/Vol]4.8 mmol/LNormal3.5-5.1The [facility] Comment on above:Performed By: #### MG, RENAL, URIC #### [facility] [address] [place] [address] Dr. Richa CheemaProtein [Mass/Vol]6.8 g/dLNormal6.4-8.2The [facility] Comment on above:Performed By: #### MG, RENAL, URIC #### [facility] [address] [place], [place] [address] Dr. Richa CheemaSodium [Moles/Vol]140 mmol/HApsxvh468-186Nld [facility] Comment on above:Performed By: #### MG, RENAL, URIC #### [facility] [address] [address] [address] Richa CheemaUrea nitrogen [Mass/Vol]29.0 mg/dLCritically high7.0-18.0The [facility] CenterComment on above:Performed By: #### MG, RENAL, URIC #### [facility] [address] [address] [address] Richa CheemaUrea nitrogen/Creatinine [Mass ratio]11.3 mg/mgNormalThe [facility] CenterComment on above:Performed By: #### MG, RENAL, URIC #### [facility] [address] [address] [address] Richa Johnstonvid-19 PCR (CVDTB)on 90-16-5407IXET-CoV-2 (COVID-19) RNA RADHA+probe Ql (Unsp spec)DetectedCritically abnormalNOT DETECTEDThe [facility] CenterComment on above:Result Comment: This test is not yet approved or cleared by the [place] FDA. When there are no FDA-approved or cleared tests available, and other criteria are met, FDA can make tests available under an emergency access mechanism called an Emergency Use Authorization (EUA). The EUA for this test is supported by the [place] of Health and Human Service's (HHS's) declaration [...] no longer be used). Performed By: #### CVDTBH #### [facility] [address] [place] [address] Dr. Richa CheemaXR LSPINE MIN 4 VIEWSon 34-22-7400GF LSPINE MIN 4 VIEWS EXAMINATION: XR LSPINE [...] Electronically authenticated by: DIANN IBANEZ Date: 2022-04-14 11:25[facility]CT [facility] WO CONon 67-34-5804FP HEAD WO CONEXAMINATION: CT HEAD WO CON HISTORY: Musculoskeletal symptom [...] Electronically authenticated by: DIANN IBANEZ Date: 2022-04-07 15:47[facility] HospitalLaboratory - Chemistry and Chemistry - challengeOrdered By: Akin Suarez on 24-93-3141Cunemcbzs [Mass/Vol]2.0 mg/dL1.6-2.6FWVUMedicine Harrison Community HospitalNo Panel InformationOrdered By: Akin Suarez on - Hydroxy Vitamin D Total38.5 ng/nJ02-556SiymyrddyMercy Health Fairfield HospitalComment on above:VITAMIN D STATUS 25(OH)VITAMIN D RANGE (ng/mL) Deficient <20 Insufficient 20 to <30 Sufficient 30 to 100 Reference: Caro Vallejo, Marguerite MCMAHON, et al. Evaluation,treatment, and prevention of vitamin D deficiency; an Endocrine Society clinical practice guideline. JCEM. 2010; 96(7):1911-30.VITAMIN D STATUS 25(OH)VITAMIN D RANGE (ng/mL) Deficient <20 Insufficient 20 to <17Ialpfieige38 to 100Reference: Caro Vallejo, Marguerite MCMAHON, et al. Evaluation,treatment, and prevention of vitamin D deficiency; an Endocrine Society clinical practice guideline. JCEM. 2010; 96(7):1911-.Phosphate [Mass/volume] in Serum or PlasmaOrdered By: Akin Suarez on 65-24-3871Fkzfjdbun [Mass/Vol]3.7 mg/dL2.5-4.6FSalem City Hospitalerum or plasma intact parathyroid hormone measurement (mass/volume)Ordered By: Akin Suarez on 08-58-8825Reljbkxfwr.intact [Mass/Vol]137.7 pg/rXDlqe47-59Vx[address] [place], [place] [address]erum or plasma uric acid measurement (mass/volume)Ordered By: Akin Suarez on 02-31-2769Dwpqj [Mass/Vol]4.8 mg/dL2.6-7.2FWVUMedicine Harrison Community HospitalTobacco Screening.on 35-67-7922Arat risk assessmenta) No falls within the last year-[facility] DO Work Phone: Tobacco use status CPHSb) NoMP-[facility] 250 DO Work Phone: CT biopsyOrdered By: Louis Bradley on 87-32-7433WS atxnoi71 HoursMercy Health Fairfield HospitalIgA [Mass/volume] in Serum or PlasmaOrdered By: Louis Bradley on 15-89-1751MfY [Mass/Vol]65 mg/mT13-730 [facility] HospitalIgG [Mass/volume] in Serum or PlasmaOrdered By: Louis Bradley on 31-88-9639UyT [Mass/Vol]654 mg/bU225-2969GipygeqdeMercy Health Fairfield HospitalIgM [Mass/volume] in Serum or PlasmaOrdered By: Louis Bradley on 21-84-8455WxN [Mass/Vol]23 mg/hQ90-327HecscvknxMercy Health Fairfield HospitalComment on above:Result confirmed on concentration. Performed at: [address] [id number] Pharmacy Helper: Elpidio Delgado PhD, Phone: [phone] confirmed on concentration.Performed at: [address] [id number] Director: Elpidio Delgado PhD, Phone: [phone] for UrineOrdered By: Louis Bradley on 35-80-9507Inghfdffgsuihg Immunofixation (U) [Interp]See commentAbnormal.[facility]field HospitalComment on above: Bence Jenkins Protein positive; kappa type. Performed at: [facility] [id number] Pharmacy Helper: Elpidio Delgado PhD, Phone: [phone] Jenkins Protein positive; kappa type.Performed at: [address] [id number] Director: Elpidio Delgado PhD, Phone: [phone] Immunofixation (U) [Interp]Immunofixation for UrineAbnormal.[facility]field HospitalComment on above:Bence Jenkins Protein positive; kappa type.Performed at: [address] [id number] Director: Elpidio Delgado PhD, Phone: [phone] ultrasound (IVUS) of initial vesselOrdered By: Louis Bradley on 41-73-3186Exbbdgtobwvqv ultrasound (IVUS) of initial vesselIntravascular ultrasound (IVUS) of initial [facility] HospitalNo Panel InformationOrdered By: Louis Bradley on 65-07-4331Xjrjq ImmunofixationSee comment.[facility] HospitalComment on above:Immunofixation shows IgG monoclonal protein with kappa light chain specificity. Please note that samples from patients receiving DARZALEX(R) (daratumumab) treatment can appear as an IgG kappa and mask a complete response. If this patient is receiving IRMA, this HAILEE assay interference can be removed by ordering test number [id number]- Immunofixation, Daratumumab- Specific, Serum and submitting a new sample for testing or by calling the lab to add this test to the current sample.Immunofixation shows IgG monoclonal protein with kappalight chain specificity.Please note that sampl es from patients receivingDARZALEX(R) (daratumumab) treatment can appear as an IgGkappa and mask a complete response. If this patient isreceiving IRMA, this HAILEE assay interference can be removedby ordering test number [id number]- Immunofixation, Daratumumab-Specific, Serum and submitting a new sample for testing orby calling the lab to add this test to the current sample.Urine Albumin 24 Hours33.2 %.[facility] HospitalUrine Fllst-0-Tjymrepg 4.3 %.[facility] HospitalUrine Eqbiz-3-Qjakvmjyt48.0 %.[facility] HospitalUrine Beta Xvbgmqed48.7 %.[facility] HospitalUrine Gamma Globulin9.8 %.[facility] HospitalUrine IEP M- Krystian % 24 Hr21.1 %HighNot ObservedMercy Health Fairfield HospitalUrine Random Prot Electrophor NoteSee comment.[facility] HospitalComment on above:Protein electrophoresis scan will follow via computer, mail, or cafeteria cashier delivery.Protein electrophoresis scan will follow via computer,mail, or cafeteria cashier delivery.33.2 %.[facility]4.3 % .[facility]16.0 %.[facility]36.7 % .[facility]9.8 %.[facility]21.1 % HighNot ObservedEast Liverpool City Hospitalee comment.[facility] HospitalProtein [Mass/time] in 24 hour UrineOrdered By: Louis Bradley on 77-79-1646Icutoho (24H U) [Mass/Time]125 mg/24 la76-465EdxzvhtlgMercy Health Fairfield HospitalProtein (24H U) [Mass/Time]Protein [Mass/time] in 24 hour Urine 30-150Mer[facility]field HospitalProtein [Mass/volume] in UrineOrdered By: Louis Bradley on 84-90-4037Nyqrmqw (U) [Mass/Vol]8.5 mg/dLNot Estab.[facility] HospitalProtein.monoclonal [Mass/time] in 24 hour Urine by ElectrophoresisOrdered By: Louis Bradley on 95-95-9967Kdxzejs.monoclonal Elph (24H U) [Mass/Time]26.5 mg/24 hrHighNot ObservedMercy Health Fairfield HospitalProtein.monoclonal Elph (24H U) [Mass/Time]Protein.monoclonal [Mass/time] in 24 hour Urine by ElectrophoresisHighNot ObservedMercy Health Fairfield HospitalUrine volume measurementOrdered By: Louis Bradley on 35-27-2700Xyryxszq volume (U)1475 mlEast Liverpool City Hospitalpecimen volume (U)Urine volume measurementMercy Health Fairfield HospitalUrine culture routineon 85-98-4950Qbqlyngy identified Cx Nom (U)Pseudomonas aeruginosaMercy Health Fairfield HospitalAutomated epithelial cells count in urine sediment (number/area) on 27-81-1826Vmtffmmxjg cells Auto (Urine sed) [#/Area]0-1 [HPF]0-2FWVUMedicine Harrison Community HospitalAutomated erythrocytes count in urine sediment (number/area)on 33-93-3036BOI Auto (Urine sed) [#/Area]Innumerable [HPF]0-4 [facility] HospitalAutomated leukocytes count in urine sediment (number/area)on 48-56-5587SLM Auto (Urine sed) [#/Area]0-1 [HPF]0-4FWVUMedicine Harrison Community HospitalAutomated urine specific gravity by refractometryon 09-13-0677Suniotsd gravity Refractometry automated (U) [Rel density]1.009 1.001-1.030[facility] HospitalComment on above:Rechecked by refractometerBacteria identified Cx Nom (U)on 22-29-4175Kmlbhdeodmq aeruginosa AbnormalMercy Health Fairfield HospitalPseudomonas aeruginosaAbnormalMercy Health Fairfield HospitalBilirubin Test strip Ql (U)on 52-28-1822Lkmnsvxcb Ql (U) See commentNegativeMercy Health Fairfield HospitalComment on above:Unable to obtain accurate result due to color interference.Color Auto (U)on 02-24-2021 Color (U)RedYellowMercy Health Fairfield HospitalCreatinine [Mass/volume] in Urineon 08-66-0236Klpnqpfqmj (U) [Mass/Vol]77.2 mg/dLMercy Health Fairfield HospitalComment on above:No reference range establishedKetones Auto test strip (U) [Mass/Vol]on 67-15-4675Ccmaimr (U) [Mass/Vol]See commentNegNorwalk Memorial HospitalComment on above:Unable to obtain accurate result due to color interference.Nitrite Test strip Ql (U)on 39-79-1984Veaztdb Ql (U)See commentNegNorwalk Memorial HospitalComment on above:Unable to obtain accurate result due to color interference.Protein Auto test strip (U) [Mass/Vol]on 32-57-4351Mcdmjli (U) [Mass/Vol]See commentNegNorwalk Memorial HospitalComment on above:Unable to obtain accurate result due to color interference.Urine bacteria detection by automated methodon 02-24-2021 Bacteria Auto Ql (U)None seenNone [facility] Medical CenterUrine clarity by refractometry automatedon 42-46-6695Lqhytqz Refractometry automated (U)TurbidCleRegency Hospital ToledoUrine culture routineon 02-04-3416Qidmntbl identified Cx Nom (U)Pseudomonas aeruginosaAbBarney Children's Medical CenterBacteria identified Cx Nom (U)Pseudomonas aeruginosa AbnormalMercy Health Fairfield HospitalUrine glucose measurement by automated test strip (mass/volume)on 14-05-3002Hfcupst Auto test strip (U) [Mass/Vol]See commentNoACMC Healthcare SystemComment on above:Unable to obtain accurate result due to color interference.Urine hemoglobin detection by automated test stripon 01-09-7940Lvmdoojyco Auto test strip Ql (U)See comment NegativeMercy Health Fairfield HospitalComment on above:Unable to obtain accurate result due to color interference.Urine leukocyte esterase detection by automated test stripon 30-35-1004Pnyxdlmaf esterase Auto test strip Ql (U)See commentNegNorwalk Memorial HospitalComment on above:Unable to obtain accurate result due to color interference.Urine protein/creatinine ratio on 14-51-8663Atuqoak/Creatinine (U) [Ratio]2098 mg/g{Cre}High0-200Mer[facility]field HospitalUrobilinogen Auto test strip (U) [Mass/Vol]on 02-24-2021 Urobilinogen (U) [Mass/Vol]See commentNormalMercy Health Fairfield Hospital Comment on above:Unable to obtain accurate result due to color interference.pH Auto test strip (U)on 92-72-2352fO (U)See comment5.0-9.0[facility] HospitalComment on above:Unable to obtain accurate result due to color interference.Laboratory - Chemistry and Chemistry - challengeon 10-28-2020 Cobalamin (Vitamin B12) [Mass/Vol]506 pg/fX283-866IodkrmnnwMercy Health Fairfield HospitalLaboratory - Hematology and Cell countson 84-93-3144NCE (Bld) [#/Vol]10.0 10*3/uL4.5-11.0[facility] HospitalNo Panel Informationon 72-59-050645.0 10*3/uL4.5-11.0[facility] Hospital506 pg/uV717-650 [facility] HospitalLaboratory - Microbiology and Antimicrobial susceptibilityon 66-48-5071Orsbiwam identified Cx Nom (U)[facility] HospitalLaboratory - Urinalysison 35-47-9868Xaqwewb casts LM Ql (Urine sed)0-8 [LPF]0-8[facility] HospitalUrine culture routineon 66-82-9457Llokoimq identified Cx Nom (U)bacilli - 1 DayEast Liverpool City Hospitalerum intrinsic factor blocking antibody detection by radioimmunoassay (MAGGIE)on 51-80-9844Opwlkycks factor blocking Ab MAGGIE Ql (S)0.9 AU/mL0.0-1.1FWVUMedicine Harrison Community HospitalComment on above:Performed at: [address] [id number] Pharmacy Helper: Britton Valente MD, Phone: [phone] at: [address] [id number] Director: Britton Valente MD, Phone: [phone] factor blocking Ab MAGGIE Ql (S)Serum intrinsic factor blocking antibody detection by radioimmunoassay (MAGGIE)0.0-1.1FWVUMedicine Harrison Community HospitalComment on above:Performed at: [facility] [employer] [id number] Director: Britton Valente MD, Phone: [phone] parietal cell antibody assay (units/volume)on 81-13-8571Djscsbmf cell Ab Qn (S)1.9 Units0.0-20.0[facility] HospitalComment on above:Negative 0.0 - 20.0 Equivocal 20.1 - 24.9 Positive >24.9 Parietal Cell Antibodies are found in 90% of patients with pernicious anemia and 30% of first degree relatives with pernicious anemia. Performed at: [employer] [id number] Pharmacy Helper: Elpidio Delgado PhD, Phone: [phone] 0.0 - 20.0 Equivocal 20.1 - 24.9 Positive >24.9Parietal Cell Antibodies are found in 90% of patientswith pernicious anemia and 30% of first degreerelatives with pernicious anemia.Performed at: [employer] [id number] Director: Elpidio Delgado PhD, Phone: [phone] cell Ab Qn (S)Serum parietal cell antibody assay (units/volume)0.0-20.0[facility] HospitalComment on above:Negative 0.0 - 20.0 Equivocal 20.1 - 24.9 Positive >24.9Parietal Cell Antibodies are found in 90% of patientswith pernicious anemia and 30% of first degreerelatives with pernicious anemia.Performed at: [employer] [id number] Director: Elpidio Delgado PhD, Phone: [phone] Glucometer (dC) [Mass/Vol]on 62-82-9743Moyteet [Mass/Vol]133 mg/dLMercy Health Fairfield HospitalComment on above:Random Glucose Reference Range is dependent on time and content of last meal. Glucose of more than 200 mg/dL in a nonstressed, ambulatory subject supports the diagnosis of Diabetes Mellitus. Glucose [Mass/Vol]Capillary blood glucose measurement by glucometer (mass/volume)[facility] HospitalComment on above:Random Glucose Reference Range is dependent on time and content of last meal. Glucose of more than 200 mg/dL in a nonstressed, ambulatory subject supports the diagnosis of Diabetes Mellitus.Glucose mean value [Mass/volume] in Blood Estimated from glycated hemoglobinon 63-67-0186Yqkbmvb glucose Estimated from glycated hemoglobin (Bld) [Mass/Vol]183 mg/dLMercy Health Fairfield HospitalHbA1c (Bld) on 71-15-0612RcG0r (Bld) [Mass fraction]8.0 %4.3-5.6FWVUMedicine Harrison Community HospitalComment on above:Increased risk for diabetes: 5.7 - 6.4 diabetes: >6.4 glycemic control for adults with diabetes: <7.0Increased risk for diabetes: 5.7 - 6.4diabetes: >6.4glycemic control for adults with diabetes: <7.0IgA [Mass/volume] in Serum or Plasmaon 47-50-7968OqN [Mass/Vol]65 mg/oQ72-992 [facility] HospitalIgA [Mass/Vol]IgA [Mass/volume] in Serum or Tfdmgm19-571KtvoobsunMercy Health Fairfield HospitalIgG [Mass/volume] in Serum or Plasmaon 90-89-7777XtY [Mass/Vol]487 mg/iYYnb765-7626NlrfhgprfMercy Health Fairfield HospitalIgG [Mass/Vol]IgG [Mass/volume] in Serum or RzztgtKsv533-4758NpfriwyfpMercy Health Fairfield HospitalIgM [Mass/volume] in Serum or Plasmaon 98-06-9461VcE [Mass/Vol]38 mg/sK42-528BqxmiehqfMercy Health Fairfield HospitalComment on above: Performed at: [employer] [id number] Pharmacy Helper: Elpidio Delgado PhD, Phone: [phone] at: [employer] [id number] Director: Elpidio Delgado PhD, Phone: [phone] [Mass/Vol]IgM [Mass/volume] in Serum or Huynyn99-071 [facility] HospitalComment on above:Performed at: - [employer] [id number] Director: Elpidio Delgado PhD, Phone: [phone] or plasma 25-hydroxycalciferol measurement (mass/volume) on [id number]-wrufrwvezftrfd D2 [Mass/Vol]<1.0 ng/mL.[facility]25-hydroxyvitamin D2 [Mass/Vol]Serum or plasma 25- hydroxycalciferol measurement (mass/volume).[facility] Serum or plasma calcidiol measurement (mass/volume)on 54-14-069176- hydroxyvitamin D3 [Mass/Vol]65 ng/mL.[facility] HospitalComment on above:Performed at: [facility] [address] [place], [place] [id number] Pharmacy Helper: Marcelino Estes MD, Phone: [phone] at: [facility] [address] [place] [address] [id number] Director: Marcelino Estes MD, Phone: [phone]-gcockqxrfqlgrb D3 [Mass/Vol]Serum or plasma calcidiol measurement (mass/volume).[facility] Comment on above:Performed at: [facility] [address] [place] [address] [id number] Director: Marcelino Estes MD, Phone: [phone] Vital Signs Date TimeVital SignValuePerforming RicoczuzlQtrcdbow29-64-9342 11:160400Body flydpi721.6 cmElicia Rhodes MD Work Phone: [facility]07-11-2025 11:160400 Body mass index (BMI) [Ratio]31.41 kg/y7NykdoovElicia Rhodes MD Work Phone: 8(143)702-[address] [place], [place] 3243007-11-2025 11:16040 Body qffauh36.01 kgElicia Rhodes MD Work Phone: 1(440)414[address]07-11-2025 11:16-0400 Diastolic blood ykzhwlsb24 mm[Hg]Elicia Rhodes MD Work Phone: [phone])[address]07-11-2025 11:16-0400 Heart rate67 /Mary Rhodes MD Work Phone: 1440)[address]07-11-2025 11:16-0400 Systolic blood dmcibbdo606 mm[Hg]Elicia Rhodes MD Work Phone: [phone])[address]05-14-2025 13:41-0400 Diastolic blood ojowcaws36 mm[Hg]Elicia Rhodes MD Work Phone: 1(440)414[address]05-14-2025 13:41-0400 Systolic blood mnpkjyzx113 mm[Hg]Elicia Rhodes MD Work Phone: 1(666)41414 [address]05-14-2025 13:40-0400 Body xhcybi037.6 cmElicia Rhodes MD Work Phone: [phone])414[address]05-14-2025 13:40-0400 Body mass index (BMI) [Ratio]31.58 kg/i0FqwmvbdElicia Rhodes MD Work Phone: 1440)[address]05-14-2025 13:40-0400 Body oeeizq00.46 kgElicia Rhodes MD Work Phone: 1440)[address]05-14-2025 13:40-0400 Heart rate66 /Mary Rhodes MD Work Phone: 1(835)414[address]05-12-2025 13:29-0400 Body fcccej953.6 cmAdorinda PETERSON Work Phone: [facility]Sgdcqlsnyc15-31-0921 13:29-0400Body mass index (BMI) [Ratio]29.86 kg/m2Lia PETERSON Work Phone: [facility] LouisSfxvyzjhrn22-51-9272 13:29-0400Body euwwwr80.92 kgLia Velazco PA Work Phone: [facility] LouisYbersouixu97-60-4691 13:29040Diastolic blood slsafekd70 mm[Hg]Lia Velazco PA Work Phone: [facility] LouisJdkcdebcop59-50-2228 13:29-0400Heart rate64 /min Lia Velazco PA Work Phone: [facility] LouisXectqnsinl38-60-0311 13:29-0400Systolic blood ihttzpzs432 mm[Hg]Lia Velazco PA Work Phone: [facility] LouisAzfabhjttg42-52-8902 14:040Body .56 cmCurt Clark MD Work Phone: 1(832)[address]05-01-2025 14:21-0400 Body mass index (BMI) [Ratio]31.6 kg/r9GtvbgkCurt Clark MD Work Phone: 1(474)4[address]05-01-2025 14:21-0400 Body wrmwro97.54 kgCurt Clark MD Work Phone: 1(282)[address]05-01-2025 14:21-0400 Diastolic blood yyugsrgf99 mm[Hg]Curt Clark MD Work Phone: 1(119)[address]05-01-2025 14:21-0400 Heart rate65 /Rebecca Clark MD Work Phone: 1(377)510-[address] [place], [place] 6353005-01-2025 14:21-0400 Respiratory rate12 /Rebecca Clark MD Work Phone: 1(754)87900 [address]05-01-2025 14:21-0400 SaO2% (BldA) [Mass fraction]99 %Curt Clark MD Work Phone: 1(743)78700 [address]05-01-2025 14:21-0400 Systolic blood rwnertom735 mm[Hg]Curt Clark MD Work Phone: 1(370)[address]04-15-2025 10:13-0400 Diastolic blood hkeuiclf32 mm[Hg]Curt Clark MD Work Phone: [facility]04-15-2025 10:13-0400 Heart rate73 /Rebecca Clark MD Work Phone: [facility]04-15-2025 10:13-0400 SaO2% (BldA) [Mass fraction]96 %Curt Clark MD Work Phone: [facility]04-15-2025 10:13-0400 Systolic blood mm[Hg]Curt Clark MD Work Phone: [facility]04-15-2025 08:30-0400 Respiratory rate25 /Rebecca Clark MD Work Phone: [facility]04-08-2025 15:47-0400 Body jcfvoz180.6 cmJerrica Overton FACILITY 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 EQUIPMENT SPECIALIST Work Phone: 1(166)399-[address] [place], [place] 3243004-08-2025 15:47-0400 Body mass index (BMI) [Ratio]31.76 kg/l6SfcvkJerrica Overton FACILITY 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 EQUIPMENT SPECIALIST Work Phone: 1(068)162-[address] [place], [place] 3243004-08-2025 15:47-0400 Body .92 kgJerrica Overton FACILITY 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 EQUIPMENT SPECIALIST Work Phone: 1(270)785-[address] [place], [place] 3243004-08-2025 15:47-0400 Diastolic blood lhrgaour44 mm[Hg]Jerrica Overton FACILITY 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 EQUIPMENT SPECIALIST Work Phone: 1(794)[address] [place], [place] 3243004-08-2025 15:47-0400 Heart pjsq369 /Elyssa Overton FACILITY 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 EQUIPMENT SPECIALIST Work Phone: 1(206)103-[address] [place], [place] 3243004-08-2025 15:47-0400 Systolic blood roittqrt821 mm[Hg]Jerrica Overton FACILITY 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 EQUIPMENT SPECIALIST Work Phone: 1(931)774-[address] [place], [place] 3243003-31-2025 10:54-0400 Body uzwgca998.56 cmCurt Clark MD Work Phone: [facility]03-31-2025 10:54-0400 Body mass index (BMI) [Ratio]31.4 kg/f4WxrrogCurt Clark MD Work Phone: 1(389)[phone]03-31-2025 10:54-0400 Body qimxou62.12 kgCurt Clark MD Work Phone: 1(748)395-02[facility]03-31-2025 10:54-0400 Diastolic blood pcdlaugn84 mm[Hg]Curt Clark MD Work Phone: 1(907)191-42[facility]03-31-2025 10:54-0400 Heart flny525 /Rebecca Clark MD Work Phone: 1(896)90500 [address]03-31-2025 10:54-0400 Respiratory rate14 /Rebecca Clark MD Work Phone: 1(623)063[facility]80[facility]03-31-2025 10:54-0400 SaO2% (BldA) [Mass fraction]98 %Curt Clark MD Work Phone: 1(641)886-72[facility]03-31-2025 10:54-0400 Systolic blood yqakhryf88 mm[Hg]Curt Clark MD Work Phone: 1(006)428-31[facility]02-26-2025 13:18-0500 [facility] .[facility] 01-[facility] 13:18-0500Body mass index (BMI) [Ratio]31.65 kg/n3YkpwriHouston [facility]02-26-2025 13:18-0500Body .64 kg [facility]02-26-2025 13:18-0500 Diastolic blood pswmbhsa75 mm[Hg][facility]02-26-2025 13:18-0500Heart rate68 /minHouston [facility]02-26-2025 13:18-0500Systolic blood izimmbvf67 mm[Hg] [facility]02-19-2025 10:30-0500 Diastolic blood rrpaxqxd90 mm[Hg]Curt Clark MD Work Phone: 1(212)41300 [address]02-19-2025 10:30-0500 Heart rate86 /minCurt Clark MD Work Phone: 1(662)[address] [place], [place] 7375602-19-2025 10:30-0500 Respiratory rate22 /Rebecca Clark MD Work Phone: 1(517)[address] [place], [place] 7375602-19-2025 10:30-0500 SaO2% (BldA) [Mass fraction]97 %Curt Clark MD Work Phone: 1(622)[address] [place], [place] 7375602-19-2025 10:30-0500 Systolic blood rbxjlxae134 mm[Hg]Curt Clark MD Work Phone: 1(992)[address] [place], [place] 7375602-19-2025 08:05-0500 Inhaled oxygen flow rate2 L/minCurt Clark MD Work Phone: 1(429)[address] [place], [place] 7375602-19-2025 08:02-0500 Body qpvoai965.56 cmCurt Clark MD Work Phone: 1(731)[address] [place], [place] 7375602-19-2025 08:02-0500 Body hvtnzy80.1 kgCurt Clark MD Work Phone: 1(214)[address] [place], [place] 7375602-12-2025 11:09-0500 Body pqtijc728.64 cmCurt Clark MD Work Phone: 1(874)[address] [place], [place] 7375602-12-2025 11:09-0500 Body mass index (BMI) [Ratio]29.5 kg/s8PqgouhCurt Clark MD Work Phone: 1(166)[address] [place], [place] 7375602-12-2025 11:09-0500 Body uwtwxh58.09 kgCurt Clark MD Work Phone: 1(448)[address] [place], [place] 7375602-12-2025 11:09-0500 Diastolic blood nagcivnl96 mm[Hg]Curt Clark MD Work Phone: 1(366)[address] [place], [place] 7375602-12-2025 11:09-0500 Heart rate73 /Rebecca Clark MD Work Phone: 1(691)[address]900 [address]02-12-2025 11:09-0500 SaO2% (BldA) [Mass fraction]97 %Curt Clark MD Work Phone: 1(882)10700 [address]02-12-2025 11:09-0500 Systolic blood jjpovdmn585 mm[Hg]Curt Clark MD Work Phone: 1(114)[address] [place], [place] 7375602-11-2025 14:40-0500 Body .9 [degF]Curt Clark MD Work Phone: 1(100)[address] [place], [place] 7375602-11-2025 14:40-0500 Body wjcdoe44.46 kgCurt Clark MD Work Phone: 1(416)[address] [place], [place] 7375602-11-2025 14:40-0500 Diastolic blood tovddpwg28 mm[Hg]Curt Clark MD Work Phone: 1(645)54500 [address]02-11-2025 14:40-0500 Heart rate91 /Rebecca Clark MD Work Phone: 1(036)[address] [place], [place] 7375602-11-2025 14:40-0500 Respiratory rate18 /Rebecca Clark MD Work Phone: 1(380)[address] [place], [place] 7375602-11-2025 14:40-0500 SaO2% (BldA) [Mass fraction]98 %Curt Clark MD Work Phone: 1(296)69700 [address]02-11-2025 14:40-0500 Systolic blood yifmnzqj591 mm[Hg]Curt Clark MD Work Phone: 1(980)[address] [place], [place] 7375602-08-2025 08:00-0500 Body .7 [degF]Curt Clark MD Work Phone: 1(238)[address] [place], [place] 7375602-08-2025 08:00-0500 Diastolic blood tgzzdvyn03 mm[Hg]Curt Clark MD Work Phone: 1(138)35[address]02-08-2025 08:00-0500 Heart rate89 /minMarcia Clark MD Work Phone: 1(271)[address] [place], [place] 7375602-08-2025 08:00-0500 Respiratory rate16 /Rebecca Clark MD Work Phone: 1(376)[address] [place], [place] 7375602-08-2025 08:00-0500 SaO2% (BldA) [Mass fraction]98 %Curt Clark MD Work Phone: 1(511)[address] [place], [place] 7375602-08-2025 08:00-0500 Systolic blood mm[Hg]Curt Clark MD Work Phone: 1(392)[address] [place], [place] 7375602-08-2025 06:00-0500 Body ymiewh45 kgCurt Clark MD Work Phone: 1(789)[address] [place], [place] 7375602-06-2025 13:23-0500 Body .64 cmCurt Clark MD Work Phone: 1(262)[address] [place], [place] 7375602-05-2025 18:01-0500 Diastolic blood mm[Hg]Curt Clark MD Work Phone: 1(868)[address] [place], [place] 7375602-05-2025 18:01-0500 Heart rate94 /Rebecca Clark MD Work Phone: 1(947)[address] [place], [place] 7375602-05-2025 18:01-0500 Respiratory rate16 /Rebecca Clark MD Work Phone: 1(845)[address] [place], [place] 7375602-05-2025 18:01-0500 SaO2% (BldA) [Mass fraction]94 %Curt Clark MD Work Phone: 1(515)[address] [place], [place] 7375602-05-2025 18:01-0500 Systolic blood nntwbunn464 mm[Hg]Curt Clark MD Work Phone: 1(919)[address] [place], [place] 7375602-05-2025 14:28-0500 Body bckmxkyncvv89.8 [degF]Curt Clark MD Work Phone: 1(661)[address] [place], [place] 7375602-05-2025 11:47-0500 Body nyssih541.64 cmCurt Clark MD Work Phone: [facility]02-05-2025 11:47-0500 Body umusqd608.5 kgCurt Clark MD Work Phone: [facility]01-24-2025 15:42-0500 Body .[address] [facility]01-24-2025 15:42-0500Body mass index (BMI) [Ratio]32.27 kg/k5HjhdnaFadia Grace [facility]01-24-2025 15:42-0500Body kzbefy24.28 kgFadia [facility]01-24-2025 15:42-0500Diastolic blood iiaabcbe92 mm[Hg][facility]-24-20[facility] 15:42-0500 Heart rate86 /minFadia [facility]01-24-2025 15:42-0500Systolic blood lhhbspko098 mm[Hg]Fadia Grace [facility]01-15-2025 14:02-0500Diastolic blood mm[Hg]Curt Clark MD Work Phone: [facility]01-15-2025 14:02-0500 Heart rate79 /Rebecca Clark MD Work Phone: 1(733)728-63[facility]01-15-2025 14:02-0500 Systolic blood uglcwugv910 mm[Hg]Curt Clark MD Work Phone: [facility]12-19-2024 13:40-0500 Body zardht812.6 Ju Rhodes MD Work Phone: [facility]12-19-2024 13:40-0500 Body mass index (BMI) [Ratio]32.96 kg/f8LzokoqgElicia Rhodes MD Work Phone: [facility]12-19-2024 13:40-0500 Body cislpn20.09 kgElicia Rhodes MD Work Phone: [facility]12-19-2024 13:40-0500 Diastolic blood qchzffiw86 mm[Hg]Elicia Rhodes MD Work Phone: [facility]12-19-2024 13:40-0500 Heart rate84 /Mary Rhodes MD Work Phone: [facility]12-19-2024 13:40-0500 Systolic blood lbbcyblq423 mm[Hg]Elicia Rhodes MD Work Phone: [facility]12-17-2024 14:04-0500 Body ipjegp942.64 cmCurt Clark MD Work Phone: 1(157)[address]000 [address]12-17-2024 14:04-0500 Body mass index (BMI) [Ratio]31.1 kg/p6HuugnvCurt Clark MD Work Phone: 1(215)84200 [address]12-17-2024 14:04-0500 Body reppcq52.54 kgCurt Clark MD Work Phone: 1(169)69[address]12-17-2024 14:04-0500 Diastolic blood gzfqwzmy56 mm[Hg]Curt Clark MD Work Phone: 1(652)60000 [address]12-17-2024 14:04-0500 Heart rate83 /Rebecca Clark MD Work Phone: 1(719)757-[address] [place], [place] 6353012-17-2024 14:04-0500 Systolic blood tvuiuotf878 mm[Hg]Curt Clark MD Work Phone: 1(159)20500 [address]11-06-2024 15:07-0500 Body bpafjn009.64 cmMD Curt Clark Work Phone: 1(619)433-[address] [place], [place] 6353011-06-2024 11:38-0500 Body fstjpiyrdzw27 [degF]MD Curt Clark Work Phone: 1(395)089-[address] [place], [place] 6353011-06-2024 11:38-0500 Diastolic blood mm[Hg]MD Curt Clark Work Phone: 1(954)072-[address] [place], [place] 6353011-06-2024 11:38-0500 Heart rate86 /minMD Curt Clark Work Phone: 1(704)28800 [address]11-06-2024 11:38-0500 SaO2% (BldA) [Mass fraction]98 %MD Curt Clark Work Phone: 1(604)442-[address] [place], [place] 6353011-06-2024 11:38-0500 Systolic blood qiwpxnyt921 mm[Hg]MD Curt Clark Work Phone: 1(938)08500 [address]11-06-2024 07:31-0500 Respiratory rate20 /minMD Curt Clark Work Phone: 1(836)[address] [place], [place] 7375611-06-2024 05:34-0500 Body mwvrgi31.3 kgMD Curt Clark Work Phone: 1(272)[address]00 [address]11-05-2024 00:38-0500 Diastolic blood nitkmcpa79 mm[Hg]MD Curt Clark Work Phone: 1(399)72200 [address]11-05-2024 00:38-0500 Heart rate90 /minMD Curt Clark Work Phone: 1(198)28[address]11-05-2024 00:38-0500 Respiratory rate20 /minMD Curt Clark Work Phone: 1(197)02400 [address]11-05-2024 00:38-0500 SaO2% (BldA) [Mass fraction]96 %MD Curt Clark Work Phone: 1(758)95000 [address]11-05-2024 00:38-0500 Systolic blood pxspwlfo836 mm[Hg]MD Curt Clark Work Phone: 1(178)[address]11-04-2024 20:43-0500 Body .64 cmMD Curt Clark Work Phone: 1(818)67900 [address]11-04-2024 20:43-0500 Body otkttjiexwv14.2 [degF]MD Curt Clark Work Phone: 1(419)[address] [place], [place] 7375611-04-2024 20:43-0500 Body afzcty09.25 kgMD Curt Clark Work Phone: 1(004)[address] [place], [place] 7375610-07-2024 10:48-0400 Body mass index (BMI) [Ratio]31 kg/m2MD Curt Clark Work Phone: 1(593)[address] [place], [place] 7375610-07-2024 10:48-0400 Diastolic blood lrqhjakd67 mm[Hg]MD Curt Clark Work Phone: 1(838)[address] [place], [place] 7375610-07-2024 10:48-0400 Systolic blood sqwyzsyb042 mm[Hg]MD Curt Clark Work Phone: 1(467)[address] [place], [place] 7375610-07-2024 10:25-0400 Body pswgdo223.45 cmMD Curt Clark Work Phone: 1(827)[address] [place], [place] 7375610-07-2024 10:25-0400 Body .22 kgMD Curt Clark Work Phone: 1(167)[address] [place], [place] 7375610-07-2024 10:25-0400 Heart rate70 /minMD Curt Clark Work Phone: 1(710)[address] [place], [place] 7375610-07-2024 10:25-0400 Respiratory rate16 /minMD Curt Clark Work Phone: 1(095)[address] [place], [place] 7375610-07-2024 10:25-0400 SaO2% (BldA) [Mass fraction]97 %MD Curt Clark Work Phone: 1(453)[address] [place], [place] 7375610-04-2024 15:22-0400 Body mbxhhy534.09 cmMD Curt Clark Work Phone: 1(488)[address] [place], [place] 7375610-04-2024 15:22-0400 Body mass index (BMI) [Ratio]30.6 kg/m2MD Curt Clark Work Phone: 1(531)[address] [place], [place] 7375610-04-2024 15:22-0400 Body .2 [degF]MD Curt Clark Work Phone: 1(327)[address] [place], [place] 7375610-04-2024 15:22-0400 Body bejbnv97.71 kgMD Curt Clark Work Phone: 1(072)[address] [place], [place] 7375610-04-2024 15:22-0400 Diastolic blood brjmsyis63 mm[Hg]MD Curt Clark Work Phone: 1(122)[address] [place], [place] 7375610-04-2024 15:22-0400 Heart rate78 /minMD Curt Clark Work Phone: 1(416)[address] [place], [place] 7375610-04-2024 15:22-0400 Respiratory rate20 /minMD Curt Clark Work Phone: 1(499)[address] [place], [place] 7375610-04-2024 15:22-0400 SaO2% (BldA) [Mass fraction]97 %MD Curt Clark Work Phone: 1(248)[address] [place], [place] 7375610-04-2024 15:22-0400 Systolic blood jarupknu945 mm[Hg]MD Curt Clark Work Phone: 1(216)[address] [place], [place] 7375608-22-2024 13:06-0400 Body hsuavq992.09 cmMD Curt Clark Work Phone: 1(507)[address] [place], [place] 7375608-22-2024 13:06-0400 Body mass index (BMI) [Ratio]30.3 kg/m2MD Curt Clark Work Phone: 1(795)[address] [place], [place] 7375608-22-2024 13:06-0400 Body qooaszygypm19.9 [degF]MD Curt Clark Work Phone: 1(644)[address] [place], [place] 7375608-22-2024 13:06-0400 Body .81 kgMD Curt Clark Work Phone: 1(703)[address] [place], [place] 7375608-22-2024 13:06-0400 Diastolic blood mm[Hg]MD Curt Clark Work Phone: 1(053)[address] [place], [place] 7375608-22-2024 13:06-0400 Heart rate79 /minMD Curt Clark Work Phone: 1(796)[address] [place], [place] 7375608-22-2024 13:06-0400 Respiratory rate16 /minMD Curt Clark Work Phone: 1(907)862[facility]91[facility]08-22-2024 13:06-0400 SaO2% (BldA) [Mass fraction]97 %MD Curt Clark Work Phone: 1(456)919[facility]19[facility]08-22-2024 13:06-0400 Systolic blood hakjpxtv993 mm[Hg]MD Curt Clark Work Phone: 1(471)[address]000 [address]07-18-2024 11:10-0400 Body syynvv418.09 cmMD uCrt Clark Work Phone: 1(634)93400 [address]07-18-2024 11:10-0400 Body mass index (BMI) [Ratio]67.1 kg/m2MD Curt Clark Work Phone: 1(065)[address]000 [address]07-18-2024 11:10-0400 Body mass index (BMI) [Ratio]30.3 kg/m2MD Curt Clark Work Phone: 1(198)06300 [address]07-18-2024 11:10-0400 Body meisxq245 kgMD Curt Clark Work Phone: 1(180)59800 [address]07-18-2024 11:10-0400 Body yspoki33.81 kgMD Curt Clark Work Phone: 1(819)63800 [address]07-18-2024 11:10-0400 Diastolic blood wjputbqc80 mm[Hg]MD Curt Clark Work Phone: 1(811)046-[address] [place], [place] 6353007-18-2024 11:10-0400 Heart rate68 /minMD Curt Clark Work Phone: 1(769)46000 [address]07-18-2024 11:10-0400 Systolic blood jwknvuqo381 mm[Hg]MD Curt Clark Work Phone: 1(351)55600 [address]06-04-2024 13:55-0400 Body adnexx412.6 cmElicia Rhodes MD Work Phone: [facility]06-04-2024 13:55-0400 Body mass index (BMI) [Ratio]34.33 kg/e5TchsiggElicia Rhodes MD Work Phone: 1(498)036-[address] [place], [place] 3243006-04-2024 13:55-0400 Body zdlgja20.72 kgElicia Rhodes MD Work Phone: 1(198)44714 [address]06-04-2024 13:55-0400 Diastolic blood rkrqyupf47 mm[Hg]Elicia Rhodes MD Work Phone: 1(442)80414 [address]06-04-2024 13:55-0400 Heart rate68 /minElicia Rhodes MD Work Phone: 1(908)35714 [address]06-04-2024 13:55-0400 Systolic blood ezixzxyx559 mm[Hg]Elicia Rhodes MD Work Phone: 1(708)840-[address] [place], [place] 3243005-30-2024 09:27-0400 Body jaiecw393.09 cmMD Curt Clark Work Phone: 1(331)77500 [address]05-30-2024 09:27-0400 Body mass index (BMI) [Ratio]30.4 kg/m2MD Curt Clark Work Phone: 1(161)146-[address] [place], [place] 6353005-30-2024 09:27-0400 Body fsaqos60.03 kgMD Curt Clark Work Phone: 1(091)902-94[facility]05-30-2024 09:27-0400 Diastolic blood yeaatgzl53 mm[Hg]MD Curt Clark Work Phone: 1(387)486-14[facility]05-30-2024 09:27-0400 Heart rate65 /minMD Curt Clark Work Phone: [facility]05-30-2024 09:27-0400 Systolic blood rqnrrtai302 mm[Hg]MD Curt Clark Work Phone: [facility]03-15-2024 15:01-0400 Body ousyyrlugfw86.8 [degF]MD Curt Clark Work Phone: 1(950)119-11[facility]03-15-2024 15:01-0400 Body .71 kgMD Curt Clark Work Phone: 1(506)318-[address] [place], [place] 6353003-15-2024 15:01-0400 Diastolic blood xdoadamg36 mm[Hg]MD Curt Clark Work Phone: 1(993)43000 [address]03-15-2024 15:01-0400 Heart rate64 /minMD Curt Clark Work Phone: 1(964)[address]600 [address]03-15-2024 15:01-0400 Respiratory rate16 /minMD Curt Clark Work Phone: 1(616)[address]1200 [address]03-15-2024 15:01-0400 SaO2% (BldA) [Mass fraction]99 %MD Curt Clark Work Phone: 1(532)79000 [address]03-15-2024 15:01-0400 Systolic blood mm[Hg]MD Curt Clark Work Phone: 1(958)17000 [address]02-21-2024 10:59-0500 Body fjjamk306 cmMD Curt Clark Work Phone: 1(964)93400 [address]02-21-2024 10:59-0500 Body mass index (BMI) [Ratio]32.5 kg/m2MD Curt Clark Work Phone: 1(875)87100 [address]02-21-2024 10:59-0500 Body jwxibo72.88 kgMD Curt Clark Work Phone: 1(066)52500 [address]02-21-2024 10:59-0500 Diastolic blood tlwvveht46 mm[Hg]MD Curt Clark Work Phone: 1(086)454-[address] [place], [place] 6353002-21-2024 10:59-0500 Heart rate71 /minMD Curt Clark Work Phone: 1(900)860-[address] [place], [place] 6353002-21-2024 10:59-0500 Respiratory rate18 /minMD Curt Clark Work Phone: 1(031)[address]400 [address]02-21-2024 10:59-0500 SaO2% (BldA) [Mass fraction]98 %MD Curt Clark Work Phone: [facility]02-21-2024 10:59-0500 Systolic blood ilwohjla210 mm[Hg]MD Curt Clark Work Phone: [facility]01-18-2024 11:00-0500 Body qhefzy972.55 cmCurt Clark Other [facility]01-18-2024 11:00-0500 Body mass index (BMI) [Ratio]32.77 kg/n0FmfpfeCurt Clark Other [employer] Other 01-18-2024 11:00-0500Body fdugjr70.9 kgCurt Clark Other [employer] Other 01-18-2024 11:00-0500Body deheoj91.89 kgMD Curt Clark Work Phone: [facility]01-18-2024 11:00-0500 Diastolic blood czfdfhoj73 mm[Hg]Curt Clark Other [facility]01-18-2024 11:00-0500 Systolic blood hduubvun085 mm[Hg]Curt Clark Other [facility]12-20-2023 10:34-0500 Body ygqwrh236.[address] [place], [place] [address]18[address]-20-2023 10:34-0500 Body mass index (BMI) [Ratio]33.3 kg/m2Ely [address] [place] [address] 11-02-2023 10:34-0500Body kgEly [address] [place] [address] 11-02-2023 10:34-0500Diastolic blood zzyybrlw78 mm[Hg][address]12-20-2023 10:34-0500Systolic blood ytsevxzs147 mm[Hg][address]11-21-2023 14:04-0500Body .6 cmElicia Rhodes MD Work Phone: [facility]11-21-2023 14:04-0500 Body mass index (BMI) [Ratio]31.31 kg/z0NuxjcjcElicia Rhodes MD Work Phone: 1(247)910-[address] [place], [place] [address]243[address]-21-2023 14:04-0500 Body ynvgmr29 kgElicia Rhodes MD Work Phone: 1([phone]11-21-2023 14:04-0500 Diastolic blood liielohy14 mm[Hg]Elicia Rhodes MD Work Phone: 1([phone]11-21-2023 14:04-0500 Heart rate72 /minElicia Rhodes MD Work Phone: 1(273)[address]11-21-2023 14:04-0500 Systolic blood mdibcxdw955 mm[Hg]Elicia Rhodes MD Work Phone: 1(739)258-[address] [place], [place] [address]243[address]-13-2023 14:00-0500 Body ymiwbl124.55 cmCurt Clark Other [employer] Other 11-13-2023 14:00-0500Body mass index (BMI) [Ratio] 31.43 kg/b6XzlxkkCurt Clark Other [employer] Other 11-13-2023 14:00-0500Body aopfix06.18 kgCurt Clark Other [employer] Other 11-13-2023 14:00-0500Diastolic blood mm[Hg] Curt Clark Other [employer] Other 11-13-2023 14:00-9243AqA2% (BldA) [Mass fraction]98 % Curt Clark Other [employer] Other 11-13-2023 14:00-0500Systolic blood azemttlu094 mm[Hg] Curt Clark Other [employer] Other 10-31-2023 15:45-0400Body xlbtja644.55 cmCurt Clark Other [employer] Other 10-31-2023 15:45-0400Body mass index (BMI) [Ratio] 31.39 kg/h7WytndbCurt Clark Other [employer] Other 10-31-2023 15:45-0400Body xdhlybyphfg92.1 [degF]Curt Clark Other [employer] Other 10-31-2023 15:45-0400Body tgrmon44.09 kgCurt Clark Other [employer] Other 10-31-2023 15:45-0400Diastolic blood pjbibhbe00 mm[Hg] Curt Clark Other [employer] Other 10-31-2023 15:45-0400Systolic blood atjiwalf950 mm[Hg] Curt Clark Other [employer] Other 10-18-2023 13:30-0400Body afufab703.55 cmRobert Jim II Other [employer] Other 10-18-2023 13:30-0400Body mass index (BMI) [Ratio] 31.56 kg/k2Hexdhz [place] II Other [employer] Other 10-18-2023 13:30-0400Body jrsiim51.54 kgRobert Jim II Other [employer]otE[employer] Other 09-05-2023 10:44-0400Body axsnmh638.64 cmMD Curt Clark Work Phone: [facility]09-05-2023 10:40-0400 Body bktdvmdehrb56.5 [degF]MD Curt Clark Work Phone: [facility]09-05-2023 10:40-0400 Body ijrlqe40.95 kgMD Curt Clark Work Phone: [phone]09-05-2023 10:40-0400 Diastolic blood nhuvuqea52 mm[Hg]MD Curt Clark Work Phone: [facility]09-05-2023 10:40-0400 Heart rate79 /minMD Curt Clark Work Phone: [facility]09-05-2023 10:40-0400 Respiratory rate20 /minMD Curt Clark Work Phone: [facility]09-05-2023 10:40-0400 SaO2% (BldA) [Mass fraction]98 %MD Curt Clark Work Phone: [facility]09-05-2023 10:40-0400 Systolic blood ulviqzqu004 mm[Hg]MD Curt Clark Work Phone: [facility]08-11-2023 13:30-0400 Body yhtirk037.55 cmCurt Clark Other [facility] [employer] Other 08-11-2023 13:30-0400Body mass index (BMI) [Ratio] 30.58 kg/n0EjgyxgCurt Clark Other [facility] [employer] Other 08-11-2023 13:30-0400Body xountj96.82 kgCurt Clark Other [employer] Other 08-11-2023 13:30-0400Diastolic blood mjxpvssu85 mm[Hg] Curt Clark Other [employer] Other 08-11-2023 13:30-5342MfK8% (BldA) [Mass fraction]97 % Curt Clark Other [employer] Other 08-11-2023 13:30-0400Systolic blood rcxfquhh057 mm[Hg] Curt Clark Other [employer] Other 08-10-2023 11:20-0400Body zaghsz900.55 cmAbdul Lopez Other [employer] Other 08-10-2023 11:20-0400Body ybsekxxhyhx59.5 [degF]Akin Lopez Other [employer] Other 08-10-2023 11:20-0400Diastolic blood mm[Hg] Akin Lopez Other [employer] Other 08-10-2023 11:20-0400Respiratory rate20 /minAbdul Lopez Other [employer] Other 08-10-2023 11:20-5025PoO9% (BldA) [Mass fraction]98 % Akin Lopez Other [employer] Other 08-10-2023 11:20-0400Systolic blood jkvjulmb392 mm[Hg] Akin Lopez Other [employer] Other 06-13-2023 11:30-0400Body goblpj458.37 cmShannannicolejoni Amber Other [employer] Other 06-13-2023 11:30-0400Body mass index (BMI) [Ratio] 31.13 kg/t9Emucnm Braun Other [employer] Other 06-13-2023 11:30-0400Body .18 kgShannandevin Clark Other [employer] Other 06-13-2023 11:30-0400Diastolic blood xalgwxzw19 mm[Hg] Curt Clark Other [employer] Other 06-13-2023 11:30-0400Systolic blood mm[Hg] Curt Clark Other [employer] Other 05-10-2023 14:10-0400Body sifzcz686.64 cmCurt Clark Work Phone: mp277-4527VB-Uyxmr [place] [employer] [address] DO Work Phone: 1(243) 211-772505-10-2023 14:10-0400Body mass index (BMI) [Ratio] 31.15 kg/s9KxfqnoCurt Clark Work Phone: mp581-7192WV-Vfltc [place] [employer] [address] DO Work Phone: 1(617) 647-210605-10-2023 14:10-0400Body surface area Derived from formula1.97 x6HpyigsCurt Clark Work Phone: mp789-2874RU-Rcesg [place] [employer] [facility] DO Work Phone: 1(505) 976-952705-10-2023 14:10-0400Body rtragb26.54 kgCurt Clark Work Phone: mp185-4359GK-Fnthg [place] [employer] DO Work Phone: 1(370) 503-667805-10-2023 14:10-0400Diastolic blood rqidlvwc11 mm[Hg] Curt Clark Work Phone: mp830-1938RZ-Oostg [place] [employer] [address] DO Work Phone: 1(659) 102-973005-10-2023 14:10-0400Heart rate68 /minCurt Clark Work Phone: mp429-0011YB-Vnxms [place] [employer] [address] DO Work Phone: 1(910) 810-345805-10-2023 14:10-0400Systolic blood pocjijhf600 mm[Hg] Curt Clark Work Phone: mp456-7044WC-Yznkf [place] [employer] DO Work Phone: 1(269) 118-787805-02-2023 12:00-0400Body xsshsi654.37 cmCurt Clark Other [facility] Other 05-02-2023 12:00-0400Body mass index (BMI) [Ratio] 31.95 kg/e8IhysaeCurt Clark Other [employer] Other 05-02-2023 12:00-0400Body nqjfes51.45 kgCurt Clark Other [employer] Other 05-02-2023 12:00-0400Diastolic blood zkyrskmh51 mm[Hg] Curt Clark Other [employer] Other 05-02-2023 12:00-0400Systolic blood khviofvd940 mm[Hg] Curt Clark Other [employer] Other 04-10-2023 11:06-585344.6 1Mjoselin Clark Work Phone: mp721-3730IK-Djtbi [place] [employer] DO Work Phone: Comment on above:[id number] 10:37-0500Body iivokpxnnuq38.8 [degF]MD Curt Clark Work Phone: [facility]02-28-2023 10:37-0500 Body mzbehr67.2 kgMD Curt Clark Work Phone: [facility]02-28-2023 10:37-0500 Diastolic blood oikmsaut13 mm[Hg]MD Curt Clark Work Phone: [facility]02-28-2023 10:37-0500 Heart rate66 /minMD Curt Clark Work Phone: [facility]02-28-2023 10:37-0500 Respiratory rate16 /minMD Curt Clark Work Phone: [facility]02-28-2023 10:37-0500 SaO2% (BldA) [Mass fraction]97 %MD Curt Clark Work Phone: [facility]02-28-2023 10:37-0500 Systolic blood nduigjsr175 mm[Hg]MD Curt Clark Work Phone: [facility]02-27-2023 11:11-0500 Blood Pressure LocationPatrick PARK [facility]02-27-2023 11:11-0500Diastolic blood hoynbqce64 mm[Hg]Tyree PARK [facility]02-27-2023 11:11-0500Heart rate80 /minPatrick PARK [facility]02-27-2023 11:11-0500Respiratory rate16 /minPatrick PARK [facility]02-27-2023 11:11-0500Systolic blood xayhpsqh134 mm[Hg]Tyree PARK [facility]02-08-2023 12:40-0500Body wdpupa728.37 cmAbdul Lopez Other [employer] Other [id number] 12:40-0500Body mass index (BMI) [Ratio] 31.53 kg/d4Docfc Lopez Other [employer] Other 452690-76-5085 12:40-0500Body xgeetbymgiv81.5 [degF]Akin Lopez Other [employer] Other 534753-11-9000 12:40-0500Body pmiibz28.27 kgAbdul Lopez Other [employer] Other 707615-66-3550 12:40-0500Diastolic blood qepaqvez91 mm[Hg] Akin Lopez Other [employer] Other 334160-21-0398 12:40-0500Respiratory rate18 /minAbdul Lopez Other [employer] Other 02-08-2023 12:40-4301KbY4% (BldA) [Mass fraction]98 % Akin Lopez Other [employer] Other 02-08-2023 12:40-0500Systolic blood xgsgyhgf210 mm[Hg] Akin Lopez Other [employer] Other 01-26-2023 11:45-0500Body uixoui974.37 cmShannancia Clark Other [employer] Other 01-26-2023 11:45-0500Body mass index (BMI) [Ratio] 31.95 kg/h1ZjimjhCurt Clark Other [facility] [employer] Other 01-26-2023 11:45-0500Body .45 kgCurt Clark Other [employer] Other 01-26-2023 11:45-0500Diastolic blood pqjdaywp95 mm[Hg] Curt Clark Other [employer] Other 01-26-2023 11:45-1016CkC9% (BldA) [Mass fraction]96 % Curt Clark Other [employer] Other 01-26-2023 11:45-0500Systolic blood triqrhmq641 mm[Hg] Curt Clark Other [employer] Other 08-30-2022 09:12-0400Body xqqoko69.5 kgMD Curt Clark Work Phone: [phone]08-30-2022 08:58-0400 Body akvezh133.64 cmMD Curt Clark Work Phone: [phone]08-30-2022 08:58-0400 Body bwttapqzyde27.6 [degF]MD Curt Clark Work Phone: [facility]08-30-2022 08:58-0400 Diastolic blood mlsossvb57 mm[Hg]MD Curt Clark Work Phone: [phone]08-30-2022 08:58-0400 Heart rate89 /minMD Curt Clark Work Phone: [facility]08-30-2022 08:58-0400 Respiratory rate18 /minMD Curt lCark Work Phone: [facility]08-30-2022 08:58-0400 SaO2% (BldA) [Mass fraction]97 %MD Curt Clark Work Phone: [facility]08-30-2022 08:58-0400 Systolic blood jugbufst855 mm[Hg]MD Curt Clark Work Phone: [facility]08-24-2022 10:20-0400 Body ayobvq215.64 cmAbdul Lopez Other [employer] Other 08-24-2022 10:20-0400Body mass index (BMI) [Ratio] 30.24 kg/j2Gczun Lopez Other [employer] Other 08-24-2022 10:20-0400Body vmgpnhmrred25.7 [degF]Akin Lopez Other [employer] Other 08-24-2022 10:20-0400Body qoeewj67 kgAbdul Lopez Other [employer] Other 08-24-2022 10:20-0400Diastolic blood pytqogts72 mm[Hg] Akin Lopez Other [employer] Other 08-24-2022 10:20-0400Respiratory rate18 /minAbdul Lopez Other [employer] Other 08-24-2022 10:20-7915FpQ0% (BldA) [Mass fraction]98 % Akin Lopez Other [employer] Other 08-24-2022 10:20-0400Systolic blood ppredngg441 mm[Hg] Akin Lopez Other [employer] Other 08-03-2022 14:48-0400Body rmggku831.64 cmCurt Clark Work Phone: mp021-4761XD-Whaem [place] [facility] DO Work Phone: 1(747) [phone] 14:48-0400Body mass index (BMI) [Ratio] 30.18 kg/n2OrjdreCurt Clark Work Phone: mp404-0349SM-Qmyae [place] [facility] DO Work Phone: 1(687) 209-372508-03-2022 14:48-0400Body surface area Derived from formula1.94 u6RcjqbgCurt Clark Work Phone: mp846-9031VY-Kjzoa [place] [facility] [facility] DO Work Phone: 1(397) 968-212508-03-2022 14:48-0400Body asebxr19.82 kgCurt Clark Work Phone: mp422-3020AA-Ebzly [place] [facility] DO Work Phone: 1(765) 564-525208-03-2022 14:48-0400Diastolic blood vbqxfani47 mm[Hg] Curt Clark Work Phone: mp075-7745SE-Lzoep [place] [facility] [facility] DO Work Phone: 1(391) 919-629208-03-2022 14:48-0400Heart rate70 /minCurt Clark Work Phone: mp913-5963LW-Jojbt [place] [facility] DO Work Phone: 1(856) 543-285408-03-2022 14:48-0400Systolic blood mm[Hg] Curt Clark Work Phone: mp136-6550BW-Fyfab [place] [facility] DO Work Phone: 1(158) 497-907704-25-2022 10:57-0400Blood Pressure Katya PARK [facility] 04-25-2022 10:57-0400Diastolic blood yawbfguk54 mm[Hg] Tyree PARK [facility] 04-25-2022 10:57-0400Heart rate69 /minPadione PARK [facility] 04-25-2022 10:57-0400Systolic blood hsclvojz408 mm[Hg] Tyree PARK [facility] 03-03-2022 13:20-0500Body szaspk620.64 cmAbdul Lopez Other [employer] Other 03-03-2022 13:20-0500Body mass index (BMI) [Ratio] 30.34 kg/o2Mreya Lopez Other [employer] Other 03-03-2022 13:20-0500Body igqupk72.28 kgAbdul Lopez Other [employer] Other 03-03-2022 13:20-0500Diastolic blood gsgpsxsa19 mm[Hg] Akin Lopez Other [employer] Other 03-03-2022 13:20-0500Respiratory rate18 /minAbdul Lopez Other [employer] Other 03-03-2022 13:20-8941PeS4% (BldA) [Mass fraction]99 % Akin Lopez Other [employer] Other 03-03-2022 13:20-0500Systolic blood uiksbebc984 mm[Hg] Akin Lopez Other [employer] Other 11-17-2021 11:40-0500Body ogdbui539.64 cmAbdul Lopez Other [employer] Other 11-17-2021 11:40-0500Body mass index (BMI) [Ratio] 31.12 kg/w6Mtpeb Lopez Other [employer] Other 11-17-2021 11:40-0500Body widakbtpfwb06.7 [degF]Akin Lopez Other [employer] Other 11-17-2021 11:40-0500Body yllujm46.45 kgAbdul Lopez Other [employer] Other 11-17-2021 11:40-0500Diastolic blood avhekkzb04 mm[Hg] Akin Lopez Other [employer] Other 11-17-2021 11:40-0500Respiratory rate18 /minAbdul Lopez Other [employer] Other 11-17-2021 11:40-3850AlV5% (BldA) [Mass fraction]96 % Akin Lopez Other [employer] Other 11-17-2021 11:40-0500Systolic blood mbmoonlw529 mm[Hg] Akin Lopez Other [employer] Other 11-09-2021 10:38790996.4 1Mojselin Patle Clark Work Phone: 1(989) 124-1221567-6316XZ-Gflim [place] [facility] DO Work Phone: Comment on above:[id number] 14:44-0400Body height 167.64 cmCurt Clark Work Phone: mp661-3831IV-Iodvu [place] [facility] DO Work Phone: 1(255) 520-381610-12-2021 14:44-0400Body mass index (BMI) [Ratio] 30.67 kg/b7ZlimdkCurt Clark Work Phone: mp803-6844QW-Cvqdk [place] [facility] DO Work Phone: 1(472) 209-600210-12-2021 14:44-0400Body surface area Derived from formula1.96 b6ZyltudCurt Clark Work Phone: mp460-8440QR-Xofgk [place] [facility] DO Work Phone: 1(571) 796-200110-12-2021 14:44-0400Body autacs84.18 kgCurt Clark Work Phone: mp299-5525WW-Bxmhm [place] [facility] DO Work Phone: 1(878) 509-251610-12-2021 14:44-0400Diastolic blood qdlvzzod64 mm[Hg] Curt Clark Work Phone: mp708-1385HW-Swyxp [place] [facility] DO Work Phone: 1(617) 331-929710-12-2021 14:44-0400Heart rate68 /minCurt Clark Work Phone: mp476-5027WO-Sqqop [place] [facility] DO Work Phone: 1(559) 667-967610-12-2021 14:44-0400Systolic blood kymqndid676 mm[Hg] Curt Clark Work Phone: mp863-8676QU-Fdvto [place] [facility] DO Work Phone: Encounters Encounter DateEncounter TypeCare ProviderFacilityStart: 57-21-4414tktqgjfupe Tyree Rivers WATERSFacility:KENYA BellevueStart: 08-19-2025 End: 84-42-4481fhhgqlexqyQtkvey E Braun MD Work Phone: [facility] Work Phone: Start: 08-19-2025 End: 96-36-6198Jzzfxgx encounter procedureJunaidcain Dayan Choi II [facility] Work Phone: Start: 08-12-2025 End: 70-27-1136Cnjelusy Result EncounterClaire Choi DO Work Phone: noms External Department UnsolicitedStart: 08-12-2025 End: 02-34-0137Iahifiyd Result EncounterClaire Hanley Steph DO Work Phone: noms External Department UnsolicitedStart: 08-12-2025 Registered RecurringClaire Choi II [facility] Acute Work Phone: Start: 71-41-5733igtextrmijKbyaur E Braun [facility]: 00-49-6709Lci-patient / Non-visitCatherchica Mcmanus [facility] Work Phone: Start: 11-99-4339Bto-patient / Non-visitPhillip Salazar [facility] Professional Co Work Phone: Start: 05-24-2025 End: 75-80-8860Iusqka outpatient visit 25 minutesElicia Rhodes MD Work Phone: [facility] on above:Persistent atrial fibrillation with RVR (Multi) (Primary Dx); Essential hypertension; Pulmonary hypertension (Multi); Mixed hyperlipidemia; Atrial flutter, unspecified type (Multi); Aortic valve regurgitation, nonrheumatic; 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; Stage 3a chronic kidney disease (Multi); BMI 31.0-31.9,adult; Never smoked tobaccoStart: 05-24-2025 End: 04-63-4772nymxjlgcmjUAWXLHFDonalsonville Hospital AmbulatoryStart: 04-01-2025 End: 96-44-3949Isvxsmua Result EncounterClaire Choi DO Work Phone: noms External Department UnsolicitedStart: 04-01-2025 End: 34-52-2400Dttjjbkq Result EncounterClaire Hanley Steph RODRIGUEZ Work Phone: [facility] External Department UnsolicitedStart: 03-27-2025 End: 93-92-6571Akahul outpatient visit 10 minutesElicia Rhodes MD Work Phone: [facility] HospitalComment on above:Essential hypertension (Primary Dx); Persistent atrial fibrillation with RVR (Multi); Atrial flutter, unspecified type (Multi)Start: 03-27-2025 End: 75-88-1457mabnehmiebDPQEAFXMount Sinai Health System AmbulatoryStart: 03-25-2025 End: 71-15-0039Qmautq Karli PETERSON Work Phone: ana BELLEVUEStart: 03-25-2025 End: 24-15-3470Ssaqtgprince PETERSON Work Phone: AJR BELLEVUEStart: 03-25-2025 End: 46-63-8067Rilvvhi encounter procedureLia PETERSON Work Phone: ana ZOYAUEComment on above:Cerebellar infarct (CMS/HCC) (Primary Dx)Start: 03-25-2025 End: 46-29-0374abwstqqpjtPVVN HILLNot AvailableStart: 03-14-2025 End: 09-52-2860rjreqfedxoEosvvc E Braun MD Work Phone: [facility] Work Phone: Start: 03-14-2025 End: 90-52-1715Aujvyoh encounter procedureCurt Clark MD Work Phone: [facility] Work Phone: Start: 02-26-2025 End: 98-76-1125Znamuoeum to same day surgery centerCurt Clark MD Work Phone: [facility]Electro[facility] Work Phone: Start: 02-26-2025 End: 48-26-4586olvcbqlqmvIoainp E Braun MD Work Phone: [facility] Work Phone: Start: 02-19-2025 End: 82-99-7031pkghyfbikiGFXDH [facility] AmbulatoryStart: 02-19-2025 End: 42-58-7237Kncldy outpatient visit 25 minutesWilson Memorial Hospitalboog[facility] FACILITY 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 SPECIALIST Work Phone: [facility] HospitalComment on above:Persistent atrial fibrillation with RVR (Multi) (Primary Dx); Typical atrial flutter (Multi); snf current use of anticoagulant therapy; BMI 31.0-31.9,adultStart: 02-11-2025 End: 63-66-9949pgxnktlsqtCasmri E Braun MD Work Phone: [facility] Work Phone: Start: 02-11-2025 End: 64-23-4651Hjoyxek encounter procedureCurt Clark MD Work Phone: [facility] Work Phone: Start: 02-11-2025 End: 83-88-7585Oewkhr Braun MD Work Phone: [facility] Work Phone: Start: 21-18-3686Mjp-patient / Non-visitCurt Clark MD Work Phone: [facility] Work Phone: Start: 14-45-0333Edkrsi Braun MD Work Phone: [facility] Work Phone: Start: 52-04-2681Wyv-patient / Non-visitCurt Clark MD Work Phone: [facility] Work Phone: Start: 35-25-3417Hgsdqr Braun MD Work Phone: [facility] Phys[facility] GroupMulticare [facility] Professional [facility] Work Phone: Start: 48-99-2197Cwu-patient / Non-visitCurt Clark MD Work Phone: [facility] Phys[facility] GroupMult[facility] Professional [facility] Work Phone: Start: 59-37-0398Dasugb Braun MD Work Phone: [facility]Mult[facility] Work Phone: Start: 01-14-2025 End: 80-41-3194acijoqahukVpewwwn R WATERSFacility:EU BellevueStart: 01-14-2025 End: 27-73-8158Facmhjm encounter procedureTyree PARK [facility] start: 01-09-2025 End: 58-22-8247Vopkqahdwayo / ancillary services managementSt. Vincent's Medical Center SouthsideComment on above:ArrivedStart: 01-09-2025 End: 78-38-6658hgrvoayecqPMVAPXLSouthwell Medical Center AmbulatoryStart: 01-02-2025 End: 29-75-6456Zqlwefqil to same day surgery centerCurt Clark MD Work Phone: [facility]Electro[facility]ostics Work Phone: Start: 01-02-2025 End: 36-37-4350Rgfili Braun MD Work Phone: [facility] Work Phone: Start: 01-02-2025 End: 45-01-4065kfgjhdvextYadkip E Braun MD Work Phone: [facility] Work Phone: Start: 01-25-1521Xkm-patient / Non-visitCurt Clark MD Work Phone: [facility] Professional Co Work Phone: Start: 80-06-8482Drgasd Braun MD Work Phone: [facility] Physician [facility] Work Phone: Start: 12-26-2024 End: 28-82-1710jpezjwahicOyzujk E Braun MD Work Phone: [facility] Work Phone: Start: 12-26-2024 End: 97-61-6024Oldkmpc encounter procedureCurt Clark MD Work Phone: [facility] Physician [facility] Work Phone: Start: 12-26-2024 End: 67-72-3276Lthxbg Braun MD Work Phone: [facility] Work Phone: Start: 12-25-2024 End: 17-87-3390tsdszahqsdQwkpux E Braun MD Work Phone: [facility] Work Phone: Start: 12-25-2024 End: 43-87-4543Lwdismn encounter procedureCurt Clark MD Work Phone: [facility] Physician [facility] Work Phone: Start: 12-25-2024 End: 95-64-5504Vrojdx Braun MD Work Phone: [facility] Work Phone: Start: 51-76-9740Ren-patient / Non-visitCurt Clark MD Work Phone: [facility] Physician GroupAd[facility] Work Phone: Start: 09-35-1151Ndiegj Braun MD Work Phone: [facility] Physician [facility] Work Phone: Start: 65-52-3132Hjw-patient / Non-visitCurt Clark MD Work Phone: [facility] Professional [facility] Work Phone: Start: 69-19-2310Qdjnbw Braun MD Work Phone: [facility] Work Phone: Start: 67-10-3510Lkw-patient / Non-visitCurt Clark MD Work Phone: [facility] GroupR[facility] Work Phone: Start: 39-09-3226Zvetty Braun MD Work Phone: [facility] Physician [facility] Work Phone: Start: 12-19-2024 End: 18-09-0833Mrwdhhdzji and management of inpatientCurt Clark MD Work Phone: [facility] Work Phone: Start: 12-19-2024 End: 81-18-9980Ctzsfs Braun MD Work Phone: [facility] [place] [facility] Work Phone: Start: 63-45-5245Zbqmoxgntt RecurringCurt Clark MD Work Phone: [facility] Acute Work Phone: Start: 49-47-9696Aojtkd Braun MD Work Phone: [facility] Work Phone: Start: 12-07-2024 End: 94-01-9270Vbygmeodkkvq / ancillary services managementShannandarci [facility] CenterStart: 12-07-2024 End: 42-87-2506aubphinchcDDGAXXTNorthridge Medical CenterStart: 11-28-2024 End: 07-07-5018dxfopiqbcsXifyjk E Braun MD Work Phone: [facility] Work Phone: Start: 11-28-2024 End: 63-80-6292Rvikzfq encounter procedureCurt Clark MD Work Phone: [facility] Work Phone: Start: 11-28-2024 End: 88-81-8085Tybnlh Braun MD Work Phone: [facility] Work Phone: Start: 97-29-6604Egc-patient / Non-visitCurt Clark MD Work Phone: [facility] Work Phone: Start: 32-67-4293Qiixvz Braun MD Work Phone: [facility] Work Phone: Start: 88-48-8491Oxd-patient / Non-visitCurt Clark MD Work Phone: [facility] Physician [facility] Professional [facility] Work Phone: Start: 13-07-1903Doolsx Braun MD Work Phone: [facility] Work Phone: Start: 08-84-9274Mfy-patient / Non-visitCurt Clark MD Work Phone: [facility] GroupMulticare [facility] Professional Co Work Phone: Start: 38-63-1429Xsbdmf Braun MD Work Phone: [facility] Work Phone: Start: 65-34-6595Usf-patient / Non-visitCurt Clark MD Work Phone: [facility] Work Phone: Start: 03-74-4197Sfazhk Braun MD Work Phone: [facility] Physician [facility] Work Phone: Start: 79-46-9247Ziuinp Braun MD Work Phone: [facility] GroupW[facility] Work Phone: Start: 43-31-7903Hzl-patient / Non-visitCurt Clark MD Work Phone: [facility] Work Phone: Start: 23-75-1145Adxvgq Braun MD Work Phone: [facility] Work Phone: Start: 11-01-2024 End: 35-80-7812Bulrbt outpatient visit 25 minutesMihilaria Rhodes MD Work Phone: [facility] HospitalComment on above:Persistent atrial fibrillation with RVR (Multi) (Primary Dx); Pulmonary hypertension (Multi); Mixed hyperlipidemia; Ascending aorta dilation (CMS-HCC); Essential hypertension; Stage 3a chronic kidney disease (Multi); Shortness of breath at rest; Gastrointestinal hemorrhage, unspecified gastrointestinal hemorrhage type; BMI 32.0-32.9,adult; Never smoked tobaccoStart: 11-01-2024 End: 76-39-9985fxtrysaolkDFKNKDMDonalsonville Hospital AmbulatoryStart: 10-30-2024 End: 36-66-6813Nnxhxfe encounter procedureCurt Clark MD Work Phone: [facility] [facility]Ad[facility] Work Phone: Start: 10-30-2024 End: 30-06-9030Gccddd Braun MD Work Phone: [facility] Physician [facility] Work Phone: Start: 17-69-2938Zpl-patient / Non-visitCurt Clark MD Work Phone: [facility] Physician [facility] Work Phone: Start: 55-31-7156Rocqij Braun MD Work Phone: [facility] Physician [facility] Work Phone: Start: 10-23-2024 End: 41-45-8100Lxprlgsoi encounterLauren Venia CMAProMedica Physicians [facility] SurgeryStart: 10-22-2024 End: 80-13-8794Wsphbs OnlyNot In System Ref ProvProMedica Physicians General SurgeryStart: 37-19-2176Ujw-patient / Non-visitCurt Clark MD Work Phone: [facility] Physician [facility] Work Phone: Start: 98-18-8591Upslfh Braun MD Work Phone: [facility] Physician [facility] Work Phone: Start: 16-36-9330Xhs-patient / Non-visitCurt Clark MD Work Phone: [facility] Physician [facility] Work Phone: Start: 93-49-1555Rmjoft Braun MD Work Phone: [facility] Physician [facility] Work Phone: Start: 10-12-2024 End: 13-80-3830lkkvrjvrfvNeroyyp E GrillisFacility:[facility] Hospitaltart: 10-12-2024 End: 12-59-7631Jjeowskz ReferredCurt Clark MD Work Phone: [facility]-LAB Path Spec [place] HospStart: 77-14-3604Tgk-patient / Non-visitCurt Clark MD Work Phone: [facility] GroupAd[facility] Work Phone: Start: 10-12-2024 End: 00-86-2452Fbrjcr Braun MD Work Phone: [facility]-LAB Path Spec [place] HospStart: 77-00-0600Car-patient / Non-visitCurt Clark MD Work Phone: [facility] Physician [facility] Work Phone: Start: 32-92-5291Kwnlwf Braun MD Work Phone: [facility] Work Phone: Start: 10-10-2024 End: 15-80-3838Wxi-patient / Non-visitCurt Clark MD Work Phone: [facility] Work Phone: Start: 10-10-2024 End: 11-85-9117Yjqmva Braun MD Work Phone: [facility] Work Phone: Start: 74-06-9367Chj-patient / Non-visitCurt Clark MD Work Phone: [facility] Work Phone: Start: 65-09-9335Vythoe Braun MD Work Phone: [facility] Work Phone: Start: 09-90-9396Fuu-patient / Non-visitMD Curt Clark Work Phone: [facility] Physician Group-[facility] Work Phone: Start: 79-87-1633Yhi-patient / Non-visitMD Curt Clark Work Phone: [facility] Physician Group-[facility] Rehab and Spine Work Phone: Start: 09-18-2024 End: 86-94-1013whtmvrhyraTsuwmu PopescuFacility:[facility] [place] [facility] Hospitaltart: 09-18-2024 End: 67-98-9867Xwwtpmmbxk and management of inpatientMD Curt Clark Work Phone: [facility]-3 [place] [facility] Work Phone: Start: 09-18-2024 End: 78-68-1636xgwgdtntxcu encounterMD Curt Clark Work Phone: [facility] Work Phone: Start: 67-60-5915Vkd-patient / Non-visitCurt Clark MD Work Phone: [facility] Physician Group-[facility] ER Work Phone: Start: 01-20-7077Svr-patient / Non-visitMD Curt Clark Work Phone: [facility] Physician GroupMulticare Good [facility] Work Phone: Start: 09-14-2024 End: 66-42-6349Zmzdmortk Result EncounterMatthemanoj PETERSON Work Phone: noms External Department UnsolicitedStart: 09-14-2024 End: 68-15-7104Yxpkpxrre Result EncounterMatthemanoj PETERSON Work Phone: noms External Department UnsolicitedStart: 08-20-2024 End: 85-55-2874eympjdghtkTX Curt Clark Work Phone: [facility] Work Phone: Start: 08-20-2024 End: 12-92-5870Ankcftj encounter procedureMD Curt Clark Work Phone: [facility] Physician Group-[facility] Medical [facility] Work Phone: Start: 50-55-2694Kti-patient / Non-visitMD Curt Clark Work Phone: [facility] Physician Group-[facility] Urgent Care Oli Work Phone: Start: 08-17-2024 End: 42-69-9924ppfpokluzuUU Curt Clark Work Phone: [facility] Work Phone: Start: 08-17-2024 End: 66-03-0541Hscqbfh encounter procedureMD Curt Clark Work Phone: [facility] Physician [facility] Ambulatory Work Phone: Start: 08-01-2024 End: 40-90-3013Liulbvqp Result EncounterTimcain Mopartha DO Work Phone: noms External Department UnsolicitedStart: 08-01-2024 End: 15-61-9393Ivlbtlju Result EncounterTimcain Mopartha DO Work Phone: noms External Department UnsolicitedStart: 08-01-2024 Registered RecurringMD Curt Clark Work Phone: [facility] [facility] Work Phone: Start: 07-05-2024 End: 81-50-4987rzonukwvneWE Marcia E Braun Work Phone: [facility] Work Phone: Start: 07-05-2024 End: 86-52-2117Oxyleov encounter procedureMD Curt Clark Work Phone: [facility] Work Phone: Start: 09-54-4694Itb-patient / Non-visitMD Curt Clark Work Phone: [facility] Phys[facility] GroupMulticare [facility] Work Phone: Start: 67-04-0131Aerqclaxln RecurringMD Curt Clark Work Phone: [facility] Work Phone: Start: 05-31-2024 End: 37-60-0629rwgsqgyzvqOU Marcia E Braun Work Phone: [facility] Work Phone: Start: 05-31-2024 End: 09-87-9905Atbcteu encounter procedureMD Curt Clark Work Phone: [facility] Phys[facility] Group-[facility] Work Phone: Start: 54-76-2299Rne-patient / Non-visitMD Curt Clark Work Phone: [facility] Phys[facility] Group-[facility] Work Phone: Start: 28-68-1850Pqfvjxhlln RecurringMD Curt Clark Work Phone: [facility] Work Phone: Start: 04-17-2024 End: 98-38-5681Gcqcbt outpatient visit 25 minutesMohilaria Rhodes MD Work Phone: [facility] on above:Essential hypertension (Primary Dx); Persistent atrial fibrillation with RVR (Multi); Aortic valve regurgitation, nonrheumatic; Ascending aorta dilation (CMS-HCC); Mixed hyperlipidemia; Pulmonary hypertension (Multi); Stage 3a chronic kidney disease (Multi); Multiple myeloma, remission status unspecified (Multi); Shortness of breath at rest; BMI 34.0-34.9,adult; Never smoked tobaccoStart: 04-12-2024 End: 21-53-7007Mpvnnply ReferredMD Curt Clark Work Phone: [facility]-Lab Main [place] Work Phone: Start: 04-12-2024 End: 31-15-5788umfxxgwfokQS Curt Clark Work Phone: [facility] Work Phone: Start: 04-12-2024 End: 59-84-9431Iszrkkv encounter procedureMD Curt Clark Work Phone: [facility] Physician Group-[facility] Work Phone: Start: 03-58-2018Kyefipovrt RecurringMD Curt Clark Work Phone: [facility] Work Phone: Start: 84-81-2015Ocm-patient / Non-visitMD Curt Clark Work Phone: [facility] GroupMult[facility] Work Phone: Start: 01-27-2024 End: 74-51-1767ajpejxyzufXQ Curt Clark Work Phone: [facility] Work Phone: Start: 01-27-2024 End: 70-95-1973Qtqyenf encounter procedureMD Curt Clark Work Phone: [facility] Physician [facility] Ambulatory Work Phone: Start: 43-46-2068Qsnwapfvgn RecurringMD Curt Clark Work Phone: [facility] Work Phone: Start: 01-04-2024 End: 72-01-1122wpjwxorgrvVJ Curt Clark Work Phone: [facility] Work Phone: Start: 01-04-2024 End: 74-18-4861Umoxlwi encounter procedureMD Curt Clark Work Phone: [facility] Nephrology Work Phone: Start: 50-39-8738Omk-patient / Non-visitMD Curt Clark Work Phone: [facility] GroupMult[facility] Work Phone: Start: 18-54-4655Jelsbevfwv RecurringMD Curt Clark Work Phone: [facility] Acute Work Phone: Start: 12-02-2023 End: 38-39-9788sflcohhpmfEgnnmg Braun Other [facility] [employer] Other Start: 11-11-4757Nmpzbmdyl encounterCurt ClarkSalem Regional Medical Centertart: 12-01-2023 End: 31-81-8838ywwznxybpxKmkdev Braun Other [employer] Other Start: 29-02-6708Ikjiea outpatient visit 25 minutes Curt [facility]on [facility] ClinicStart: 12-01-2023 End: 82-23-4477Fnrlesq encounter procedureMD Curt Clark Work Phone: [facility] Phys[facility] Group-Start: 11-02-2023 End: 47-00-2110Onrbhxugqj hospital visit by physicianJodi Bell Echo/Vasc Room 2[facility]Com[facility] on above:Aortic valve regurgitation, nonrheumatic; Ascending aorta dilation (CMS/HCC); Pulmonary hypertension (CMS/HCC)Start: 11-02-2023 End: 38-76-2801xdzdlohssdPIGXUDASalem City Hospitaltart: 10-17-2023 End: 48-28-2563bqlapctsaxOzbmbp Braun Other [employer] Other Start: 25-75-4393Xcgskdzcn encounterMardevin Salmeron [facility] Hospitaltart: 10-13-2023 End: 13-28-7587mxacfwuibkJagdoi Braun Other [employer] Other Start: 02-92-7831Rztxqeopq encounterMardevin Arnett [facility]ertart: 10-04-2023 End: 63-36-1566Fdytby outpatient visit 25 minutesElicia Rhodes MD Work Phone: [facility] on above:Persistent atrial fibrillation with RVR (CMS/HCC) (Primary Dx); Aortic valve regurgitation, nonrheumatic; Ascending aorta dilation (CMS/HCC); Essential hypertension; Pulmonary hypertension (CMS/HCC); Stage 3a chronic kidney disease (CMS/HCC)Start: 09-26-2023 End: 37-18-8610snculhhqljJjjcsa Braun Other [employer] Other Start: 44-57-3927Brkrtv outpatient visit 15 minutes Curt Arnett [facility] ClinicStart: 09-13-2023 End: 31-05-4577qluqfaeevdCacijl Braun Other [facility] [employer] Other Start: 27-93-8277Brmlla outpatient visit 15 minutes Curt Arnett [facility] ClinicStart: 92-13-6013Omisfk outpatient new 45 minutesRobert Jim IIFPG [place] OrthopedicsStart: 08-31-2023 End: 34-84-7908qgubeyswrlES Marcia E Braun Work Phone: [facility] Work Phone: Start: 08-31-2023 End: 88-64-5832Eoddrjq encounter procedureMD Curt Clark Work Phone: [facility]-XRay [place] [facility] Start: 65-37-4429Mj RenewalCurt Clark Work Phone: [phone]-Spbcx [facility] 250 DO Work Phone: Start: 07-19-2023 End: 36-56-1927zyeloguvxePP Curt Clark Work Phone: [facility] Work Phone: Start: 07-19-2023 End: 62-74-9604Pvebikqine RecurringMD Curt Clark Work Phone: [facility]-Cancer Center Work Phone: Start: 21-84-0108Whcxucbtbw RecurringMD Curt Clark Work Phone: [facility]-Cancer Center Work Phone: Start: 07-15-2023 End: 68-98-5686khhpzqbkwlIilmlt Braun Other [facility] [employer] Other Start: 53-66-9473Egvepdgro encounterCurt Arnett [facility] ClinicStart: 07-08-2023 End: 11-96-4317ovvkozsymtRskmnx Braun Other [employer] Other Start: 20-58-7487Bkaqcqnkd encounterMarcijoni ClarkSalem Regional Medical Centertart: 74-94-8063Uu RenewalCurt Clark Work Phone: [phone]-PgfnbPhillips Eye Institute 250 DO Work Phone: Start: 06-27-2023 End: 00-43-7121uyzyxhkdhuLzilfd Braun Other [employer] Other Start: 03-29-1268Mkafpgdxw encounterMarcijoni ClarkSalem Regional Medical Centertart: 06-24-2023 End: 43-49-9502xaqvsduylgNptrsb Braun Other [facility] [employer] Other Start: 31-71-5968Pbkuge outpatient visit 25 minutes Curtyonas ClarkDayton Children's Hospital ClinicStart: 06-23-2023 End: 92-03-9348cmfhteeyxxRmaji Lopez Other [facility] [employer] Other Start: 33-20-2482Vauejc outpatient visit 15 minutes Akin QadirFPG NephrologyStart: 06-20-2023 End: 95-81-8511xtnfzvxnfhXiuxvw Braun Other [facility] [employer] Other Start: 51-16-5973Ebecnwqej encounterMarcia AmberDayton Children's Hospital ClinicStart: 5971Rv RenewalCurt Clark Work Phone: [phone]-XgsxsPhillips Eye Institute 250 DO Work Phone: Start: 05-04-2023 End: 77-11-2311nzpogbkfuyKvagkh Braun Other [employer] Other start: 02-85-4411Sfnrjxldw encounterCurt Salmeron Medical ClinicStart: 04-26-2023 End: 96-49-5315ecybkglsnaOgyfgw Braun Other [employer] Other Start: 88-45-2755Yjzqur outpatient visit 25 minutes Curt Salmeron Medical ClinicStart: 92-86-6497Brdonu outpatient visit 25 minutesCurt Clark Work Phone: [phone]-Xwjey [facility] 250 DO Work Phone: Start: 44-16-7053rdhknjmmshQwBritt Clark Facility:[id number]: 99-31-4217Tzyojupjz encounterShannandevin Salmeron Medical ClinicStart: 03-16-2023 End: 64-89-3033rosrchlayvXV CURT CLARKRobards [employer] Other Start: 03-15-2023 End: 25-48-9764dsgnklxgivGubafo Braun Other [facility]aint [facility] [employer] Other Start: 52-81-2342Izcuxs outpatient visit 15 minutes Curt Salmeron [facility] ClinicStart: 02-21-2023 End: 92-68-6510mmilpftlbzOZ MOURHAF TRABOULSSIFacility:S1Yykqt: 01-11-2023 End: 96-73-5464isnhdlwajuUV Marcia E Braun Work Phone: [facility] Work Phone: Start: 01-11-2023 End: 47-56-7915Rmiptfqxdw RecurringMD Curt Clark Work Phone: [facility]-Cancer Center Work Phone: Start: 01-10-2023 End: 88-70-4895Nriydns encounter procedurePatrick Tita PARK [facility] [place] start: 01-06-2023 End: 43-15-7600rwpmxrzfymCD MARCIA E BRAUNFacility:N8Zcqet: 12-22-2022 End: 78-39-1094wgpnxovrlwOezgt Lopez Other [facility] [employer] Other Start: 47-66-8424Eymvks outpatient visit 25 minutes Akin QadirFPG NephrologyStart: 12-14-2022 End: 02-54-6319ajwpddmeedUSEYY QADIRFacility:W1Nohob: 12-09-2022 End: 15-45-6491rwpwamwhsiNwxqtw Braun Other [employer] Other Start: 02-38-3348Ygjkej outpatient visit 25 minutes Curt Arnett [facility] Centertart: 62-61-9029csnvnkxjswQI CURT CLARK Facility:Z8Divel: 07-13-2022 End: 67-43-1087Jheftbvate RecurringMD Curt Clark Work Phone: [facility] SystemCancer CenterStart: 07-12-2022 End: 85-57-1232iybdmtzmxpAUVYOOD J ADAMOWICZFacility:Q8Wbtyh: 07-07-2022 End: 65-18-1928neryjjmwxeSlqza Lopez Other [employer] Other Start: 72-69-9471Gcrasx outpatient visit 25 minutes Akin QadirFPG NephrologyStart: 06-30-2022 End: 23-45-8180jxcgqkbylfGOROQ QADIRFacility:M8Uouiv: 30-61-9333Hzlgas outpatient visit 25 minutesCurt Clark Work Phone: [phone]-DdsnrSt. Cloud Hospital-[place] 250 DO Work Phone: Start: 42-11-3158nzchntliwwPn. Mourhaf Traboulssi Facility:[id number]: 05-28-2022 End: 53-02-0539nosedyebtvPT CURT E AMBERFacility:O0Uqkmz: 05-25-2022 End: 83-36-7651axsuujnklaBM CURT E AMBERFacility:U8Hdepd: 05-21-2022 End: 28-61-5351wwhoqbxzcoSO CURT E BRAUNFacility:C4Cdnur: 04-14-2022 End: 14-10-4498ebllxhflnyPH CURT E BRAUNFacility:O6Epnwy: 04-07-2022 End: 16-62-7226wdmavtjzqsPKRLL CALLISONFacility:H3Nkeaz: 03-08-2022 End: 69-20-2938Gwajpdi encounter procedurePatricmalka PARK [facility] start: 97-58-0455Nr Valorie Clark Work Phone: [phone]-Jvrfo [place] [employer] 250 DO Work Phone: Start: 02-23-2022 End: 84-44-5920azxbfpxieoMhdgx Lopez Other [employer] Other Start: 25-16-3145Kizrxblel encounterAbdul QadirFPG NephrologyStart: 01-14-2022 End: 26-35-9872izcprpjmowRqvpj Lopez Other [employer] Other Start: 85-93-4145Ivkgzc outpatient visit 25 minutes Akin QadirFPG Nephrology ClydeStart: 56-97-6740Kp Valorie Clark Work Phone: [phone]-Otyzg [place] [employer] 250 DO Work Phone: Start: 09-30-2021 End: 55-28-3465rffiqwvmqcIntlo Lopez Other [employer] Other Start: 34-09-7307Uazfjv outpatient visit 25 minutes Akin AldaPG NephrologyStart: 45-28-3633Rgqahhxds encounterAbdjames QadirFPG NephrologyStart: 16-26-6670Wuilxm outpatient visit 25 minutesCurt Clark Work Phone: [phone]-Uudpu [facility] 250 DO Work Phone: Start: 07-02-2021 End: 18-08-1844dskiklxrmoXdqqxl [place] Other [facility] [employer] Other Start: 21-02-4214Hapageieg encounterCobalt Rehabilitation (Tbi) Hospitaldra Ayon [facility] Procedures DateProcedureProcedure DetailPerforming ClinicianStart: 70-48-2145Pbquinmj blood count with white cell differential, automatedClaire Choi DO Work Phone: Start: 85-58-3477Eytcrxanztikr metabolic panelClaire Choi DO Work Phone: Start: 72-04-3127Pzupv immunofixationCurt Clark MD Work Phone: Comment on above:Presence of monoclonal protein is unclear at this time. Suggestrepeat in 3 to 6 months if clinically indicated. Start: 57-12-5842O-ray skeletal surveyCurt Clark MD Work Phone: Start: 66-14-2852Vri routine ecg w/least 12 lds w/i&r Elicia Rhodes MD Work Phone: Start: 13-36-0596Kkcublml blood count with white cell differential, automatedClaire Choi DO Work Phone: Start: 51-38-5631Ygiwxlutyjluf metabolic panelClaire Choi DO Work Phone: Start: 14-27-4792Brl routine ecg w/least 12 lds w/i&r Elicia Rhodes MD Work Phone: Start: 96-15-9360Wef routine ecg w/least 12 lds w/i&r Jerrica Ace Overton FACILITY 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 EQUIPMENT SPECIALIST Work Phone: Start: 12-19-2024 End: 11-64-5652Ndhjg nucleic acid assayCurt Clark MD Work Phone: Start: 18-92-7090Kekzz chest X-rayCurt Clark MD Work Phone: Start: 50-21-8254NSQSLGEM LABSNot In System Ref Prov Start: 46-43-1402Wzjpi i surg pathology gross examination onlyNot In System Ref ProvStart: 79-90-2744VG of head without contrastMD Curt Clark Work Phone: Start: 85-91-6016Nqzzd chest X-rayMD Curt Clark Work Phone: Start: 39-08-2822Ycrknkmx identified in Urine by CultureMavictor manuel PETERSON Work Phone: Start: 14-92-2323Wpwefhbn blood count with white cell differential, automatedTimcain Choi DO Work Phone: Start: 31-05-3050Xoivaqxcyyegb metabolic panelClaire Choi DO Work Phone: Start: 03-03-8137Pcaxw cultureMD Curt Clark Work Phone: Start: 02-36-1821OJXZCYPNAAUWM ECHO (TTE) COMPLETE ELICIA VALENZUELAIStart: 42-69-2271Jjir tthrc r-t 2d w/wom-mode compl spec&colr Richard Rhodes MD Work Phone: Start: 71-97-3693Rkk routine ecg w/least 12 lds w/i&r Elicia Rhodes MD Work Phone: Start: 36-56-6601Wbtxviurpcpmw US Izzy Clark MD Work Phone: Start: 50-42-5590Jmydfsvw identified in Urine by CultureMD Curt Clark Work Phone: Start: 01-22-6870Ceyyx cultureMD Curt Clark Work Phone: Start: 40-70-6240Mlbzuv Braun MD Work Phone: Start: 18-80-7776KxdrmejplntJyxrrgd XAVIER Start: 65-70-0298Oduxkhwj identified in Urine by CultureMD Curt Clark Work Phone: Start: 85-37-7625Iycba cultureMD Curt Clark Work Phone: Start: 29-10-6595Lejphx Braun MD Work Phone: Start: 54-66-6344Lcnyvihvrhcfef shockwave lithotripsy of calculus of kidneyPatrick PARK Start: 28-34-0312NksygdvbbrpelpijZwaux: 73-11-9398JO of brain without contrastMD Curt Clark Work Phone: Start: 39-28-6607Cniqqvkdbmztzm shockwave lithotripsy of calculus of kidneyPatrick PARK Start: 49-88-5451Odbsscwfuiymqr shockwave lithotripsy of calculus of kidneyPatrick PARK Start: 09-26-6273Uhosscsy Extraction with IOL placement - OS.Tyree PARK Start: 88-62-8792Zsvlhdimnur removal of ureteric stent Tyree PARK Start: 53-22-1331Cmrqrnmoqj and retrograde pyelography Tyree PARK Start: 50-49-7360Bujes colonoscopyCurt Clark Work Phone: Cataract surgeryCurt Clark Work Phone: CholecystectomyPatrick PARK Excision of ganglion of wristPatrick PARK HemorrhoidectomyCurt Clark Work Phone: HemorrhoidectomyPatrick XAVIER HysterectomyCurt Clark Work Phone: HysterectomyPatrick XAVIER LithotripsyCurt Clark Work Phone: Operative procedure on footMarnicolea Amanda Clark Work Phone: Urine cultureMD Curt Clark Work Phone: Plan of Treatment DateCare ActivityDetailAuthorStart: 01-01-2026 End: 99-89-5654Ybubxfq encounter elihrfrkh09/18/2026 3:30 PM EST Office Visit [address] [address] Elicia Rhodes MD [address] [place] [address] [address] [place] [address] [facility]: 18-83-1090EeaitxrmfkenmtqnRokmczlnxjsivo [facility]: 33-99-4805Ipfafjid screeningDiabetes: Retinopathy ScreeningPremier Health: 21-81-9150Mulfmobof vaccinationPremier Health: 05-15-2025 End: 78-58-9143Yspgrtj encounter yiajijoxh34/02/2025 2:40 PM EDT Office Visit [address] [place] [address] Elicia Rhodes MD [address] [facility] 2, [address] [place] [address] [facility]: 04-15-2025 End: 04-41-4350Elwbwbx encounter lidhvkbhk93/02/2025 11:10 AM EDT Office Visit [address] [phone] Elicia Rhodes MD [address] [facility] [address], [address] [place] [address] [facility]: 03-25[facility]2025 End: 67-08-6234Mubtlvj encounter vufhnqrgn35/12/2025 1:40 PM EDT Office Visit NAZ KO [address] [place] [address] Lia Velazco PA [address] [place] [address] Aleks KOComment on above:ArrivedStart: 03-05-2025 End: 01-59-0069JQD 12 LeadECG 12 Lead ECG Routine Typical atrial flutter (Multi) Expected: 03/05/2025 (Approximate), Expires:02/19/2026[facility] Work Phone: Comment on above:Expected: 03/05/2025 (Approximate), Expires: 02/19/2026Start: 36-70-9391EalxolnhzEast Liverpool City Hospitaltart: 94-30-5148SftobpmfmEast Liverpool City Hospitaltart: 02-19-2025 End: 19-55-7570Licfpwpgkqtja ExternalCardioversion External Cardiac Services Routine Typical atrial flutter (Multi) snf current use of anticoagulant therapy Expected: 02/19/2025 (Approximate), Expires: 02/19/2027[facility] Service Area Work Phone: Comment on above:Expected: 02/19/2025 (Approximate), Expires: 02/19/2027Start: 60-74-9135KakbxjhgzEast [facility] City Hospitaltart: 77-52-7525UxzidanfpEast Liverpool City Hospitaltart: 58-84-1506Rlkjctka admission [facility]: 65-24-7438Xgehbckh to hydrostatic tester [facility]: 83-42-2664ZtwhxdfmaEast Liverpool City Hospitaltart: 11-20-2024 End: 59-10-9010Lmpugyk encounter procedureNOMS [facility]: 11-08-2024 Glaucoma screeningDiabetes: Retinopathy ScreeningPremier Health: 10-15-2024 End: 49-82-2068Bszumjy encounter mystalyfj03/02/2024 11:20 AM EST Office Visit [place] [address] [facility] [address] [place] [address] Elicia Rhodes MD [address] [facility] [address] [place] [address] [facility]: 00-57-5444UpeqfjvsmEast Liverpool City Hospitaltart: 46-71-2037Zpdvxcguxqmvvo of prophylactic treatment [facility]: 09-19-2024 End: 40-78-3190Vvqqfxh encounter clblacnkm11/06/2024 9:40 AM EST Office Visit [facility] [address] [place] [phone] Meri Duque NP [address] [place] [address] [facility]: 09-18-2024 End: 64-51-7896Bmbmsvgv to rehabilitation physicianEast Liverpool City Hospitaltart: 09-18-2024 End: 26-93-6295IpmmhedufEast Liverpool City Hospitaltart: 41-67-8801Rgoelxqn therapy procedureEast Liverpool City Hospitaltart: 56-82-6904Jvssztcb to occupational therapistEast [facility] City Hospitaltart: 09-18-2024 End: 18-13-3936GjqyqdtprEast Liverpool City Hospitaltart: 82-35-9664Maejwyas admissionEast Liverpool City Hospitaltart: 38-15-1930Mnvcfplol [facility]: 04-17-2024 End: 78-33-0073Bsjis 1996 panel - Serum or PlasmaLipid Panel Lab Routine Mixed hyperlipidemia Expected: 04/17/2024 (Approximate), Expires: 04/17/2025[facility] Service Area Work Phone: Comment on above:Expected: 04/17/2024 (Approximate), Expires: 04/17/2025Start: 04-17-2024 End: 46-27-3117Hxnofvz encounter brvchdasg30/04/2024 1:40 PM EDT Office Visit [facility] [address] [place] [address] Elicia Rhodes MD [address] [place] [address] [facility]: 71-11-0353Cznarudp identified in Urine by CultureEast Liverpool City Hospitaltart: 07-37-7769Vylhhnew identified in Urine by CultureEast Liverpool City Hospitaltart: 55-25-2638Cxtpxrya screeningDiabetes: Retinopathy ScreeningSt. John of God HospitalStart: 11-02-2023 End: 73-69-8045Ncrvnjj encounter nhzyjdexe97/20/2023 10:45 AM EST Appointment [facility] [address] [place] [address] [facility] CenterStart: 02-31-8341DXD, Provider: Elicia Rhodes, Status: Pen, Time: 2:10 PMFUV, Provider: Elicia Rhodes, Status: Pen, Time: 2:10 PMFormerly [facility] Heart-[place] [address] DO Work Phone: Start: 10-04-2023 End: 80-57-4189CN Heart TransthoracicTransthoracic Echo (TTE) Complete Echocardiography Routine Aortic valve regurgitation, nonrheumaticAscending aorta dilation (CMS/HCC) Pulmonary hypertension (CMS/HCC) Expected: 10/04/2023 (Approximate), Expires: 10/04/2025[facility] Service Area Work Phone: Comment on above:Expected: 10/04/2023 (Approximate), Expires: 10/04/2025Start: 46-48-4401ZlrvhdhmcEast Liverpool City Hospitaltart: 21-81-2392Jhhdxwtnm vaccinationInfluenza Vaccine (#1)[facility]Start: 41-42-9320IZQ, Provider: Elicia Rhodes, Status: Pen, Time: 2:20 PMFUV, Provider: Elicia Rhodes, Status: Pen, Time: 2:20 PMMP-[facility] [address] DO Work Phone: Start: 45-54-6975NthdqepsgMercy Health Fairfield Hospital Start: 72-53-3967SfcophxbvEast Liverpool City Hospitaltart: 08-17-2022 End: 52-16-3262CykpjfpveEast Liverpool City Hospitaltart: 72-79-8461TiewjmhvlEast Liverpool City Hospitaltart: 26-92-2866KhpftbmtsEast Liverpool City Hospitaltart: 02-65-8288MomrgdttzEast Liverpool City Hospitaltart: 73-44-3870BcyutwdflEast Liverpool City Hospitaltart: 60-25-9738SCF, Provider: Elicia Rhodes, Status: Pen, Time: 2:20 PMMP-[facility] [address] DO Work Phone: Start: 47-34-6527IkitnxvizMercy Health Fairfield Hospital Start: 30-47-1727PwwfatrirUniversity Hospitals Health System CenterStart: 49-30-4116SrkycrzfmUniversity Hospitals Health System CenterStart: 19-47-0835BwaijcgxqEast Liverpool City Hospitaltart: 01-18-2022 End: 78-61-4453DfdtjtsfhUniversity Hospitals Health System CenterStart: 44-44-1974OvmdiqhguUniversity Hospitals Health System CenterStart: 47-83-0376NifcqzjhrUniversity Hospitals Health System CenterStart: 84-80-3502GoafaeaqsUniversity Hospitals Health System CenterStart: 70-49-6670FcqnfebecUniversity Hospitals Health System CenterStart: 69-09-9079NkeogsaggUniversity Hospitals Health System CenterStart: 80-45-8732KshhnbufjUniversity Hospitals Health System CenterStart: 21-59-3803SomgcmyovUniversity Hospitals Health System CenterStart: 66-66-9191OsodaukevUniversity Hospitals Health System CenterStart: 66-88-5986TkyqoavwkUniversity Hospitals Health System CenterStart: 64-57-7106AhwehocodEast Liverpool City Hospitaltart: 86-29-8066Qzfghhlqu [facility] CenterStart: 85-77-9021Sdmwsxybw [facility] CenterStart: 07-09-2021 End: 26-31-7811Zexjiafcw [facility] CenterStart: 86-55-9556EneotrnnfUniversity Hospitals Health System CenterStart: 05-19-2021 End: 82-23-2322Pcocypuob [facility] CenterStart: 35-96-0078Kusftgfen [facility] CenterStart: 14-16-7383Wuhnpjshc [facility] CenterStart: 14-75-0019Gjbpvcxyu [facility] CenterStart: 87-90-8155Bmehxetgw [facility] CenterStart: 70-26-3726YxfxxctvjUniversity Hospitals Health System CenterStart: 01-12-2021 End: 68-02-2663Qvarfbemn [facility] CenterStart: 26-85-8550Jnbjwrsds [facility] CenterStart: 83-94-6339Myjzcurhh [facility] CenterStart: 16-54-8210Lwflhemlk [facility] CenterStart: 01-75-6669BngfmulohUniversity Hospitals Health System CenterStart: 13-50-4214JhcaqohyvUniversity Hospitals Health System CenterStart: 03-95-1691Txkoqpmub [facility] CenterStart: 54-90-6535AdcyluzigUniversity Hospitals Health System CenterStart: 38-33-1527RusugqymhUniversity Hospitals Health System CenterStart: 15-11-8568Htuslckwi [facility] CenterStart: 04-48-2876Hqbhdcblp [facility] CenterStart: 02-19-0412Rygxwpsed [facility] CenterStart: 46-75-5380Ldtbmufkz [facility] CenterStart: 22-42-2869OtgpmewbpUniversity Hospitals Health System CenterStart: 83-19-2639RgicgehraUniversity Hospitals Health System CenterStart: 24-84-8542KylvyzqxhUniversity Hospitals Health System CenterStart: 11-27-2019 End: 04-77-7923Bvxhzwphc [facility] CenterStart: 47-17-6566Zisqwolqo [facility] CenterStart: 53-07-1722Vbashksmy [facility] CenterStart: 70-67-7276Oldqpazkx [facility] CenterStart: 75-27-2375Nrgqaspzc [facility] CenterStart: 71-33-8230Ugjxufzpv [facility] CenterStart: 89-74-3797JvafytlpsUniversity Hospitals Health System CenterStart: 39-65-6811CmvdusqaaUniversity Hospitals Health System CenterStart: 50-00-9982HkfuwqezuUniversity Hospitals Health System CenterStart: 29-90-1394WoyrcqhawUniversity Hospitals Health System CenterStart: 56-19-2066ShmvvfnnxUniversity Hospitals Health System CenterStart: 79-79-4865HhhjaxhmmUniversity Hospitals Health System CenterStart: 39-09-9762EqvjbolebUniversity Hospitals Health System CenterStart: 66-84-3474Inieinqpb [facility] CenterStart: 46-13-1424YcvhrdemdUniversity Hospitals Health System CenterStart: 30-66-6057SjehoupvfUniversity Hospitals Health System CenterStart: 22-89-4684Jyvszhdid [facility] CenterStart: 04-21-8376HcqjwjowzUniversity Hospitals Health System CenterStart: 47-39-8123UyidtqhufUniversity Hospitals Health System CenterStart: 15-36-9313GwyvcpjlyUniversity Hospitals Health System CenterStart: 29-97-5680Jybjmsgfs [facility] CenterStart: 39-12-0021Yrvldvwai [facility] CenterStart: 85-17-0568Vtnypqfbk [facility] CenterStart: 00-14-6787DazimvosbUniversity Hospitals Health System CenterStart: 19-98-8987VkdootfzdUniversity Hospitals Health System CenterStart: 96-71-9525Phfgijmvo [facility] CenterStart: 79-37-3687DztyytfsvUniversity Hospitals Health System CenterStart: 61-32-5348QordbwkjfUniversity Hospitals Health System CenterStart: 27-45-2536JppcqxhvaUniversity Hospitals Health System CenterStart: 43-66-1477XSC High Risk: (Elderly (60+) or Population) (1 - 1-dose 75+ series)RSV High Risk: (Elderly (60+) or Population) (1 - 1-dose 75+ series)[facility]: 53-01-2697Rodo Risk ScreeningFall Risk ScreeningWadsworth-Rittman Hospital SystemStart: 46-56-3826XHN patients and/or patients aged 60+ years (1 - 1-dose 60+ series)RSV patients and/or patients aged 60+ years (1 - 1-dose 60+ series)[facility]: 20-74-6234Dxmmeismylxctx of varicella zoster vaccineZoster (Shingles) Vaccine (1 of 2)[facility] SystemStart: 21-12-0330PVxM/Tdap/Td Vaccines (1 - Tdap)DTaP/Tdap/Td Vaccines (1 - Tdap)[facility]: 78-16-6888GBwU,Tdap and Td Vaccines (1 - Tdap)DTaP,Tdap and Td Vaccines (1 - Tdap)[facility] Start: 41-33-9898Sbesyggwwbbw vaccinationPneumococcal Vaccine (1 of 2 - PCV) [facility]: 23-93-8896Xzveo screening for protein Diabetes: Urine Protein ScreeningUnOhioHealth Grant Medical Center: 48-73-1318Xsbkze Vaccines (1 of 2)Zoster Vaccines (1 of 2)[facility]: 90-09-5334Iphiovxaee ScreeningDepression ScreeningProOhiohealth O'Bleness Hospital SystemStart: 43-39-2475Dekmeuy ScreeningTobacco ScreeningProThe Jewish Hospitaltart: 43-37-4700Fhobuhpo foot examinationDiabetes: Foot ExamUnOhioHealth Grant Medical Center: 33-07-2390Nkmwdyjrrudt Vaccine: 65+ Years (1 - PCV) Pneumococcal Vaccine: 65+ Years (1 - PCV)[facility]: 71-97-9489Qhuvnajxkoki Vaccine: 65+ Years (1 of 2 - PCV)Pneumococcal Vaccine: 65+ Years (1 of 2 - PCV)[facility]: 69-12-4975AIARU- 19 Vaccine (#1)COVID-19 Vaccine (#1)[facility]: 60-61-3787Vzqkmtabgg measurementCreatinine [facility] HospitalUnOhioHealth Grant Medical Center: 86-61-1028Bxqchobgno A1c measurementDiabetes: Hemoglobin A1C [facility]: 55-40-7576Oavrj panelLipid Panel [facility]: 1942Medicare Annual Wellness Visit Medicare Annual Wellness Visit (AWV)[facility]: 93-38-4826Xiuxxcdxe measurementPotassium [facility] HospitalUnPremier Health [facility] Start: 49-39-3859Wrixh screening for proteinDiabetes: Urine Protein Screening [facility]: 40-22-2839Mrtrhi Adult PhysicalYearly Adult PhysicalUnPremier Health Miami Valley Hospital SouthAnion gap measurementMercy Health Fairfield HospitalAnion gap measurementMercy Health Fairfield Hospital Basophils [#/volume] in Blood by Automated [facility] CenterBasophils/100 leukocytes in Blood by Automated [facility] Medical CenterComprehenve metabolic 1999 panel - Serum or PlasmaUniversity Hospitals Health System Ctr Work Phone: Comprehenve metabolic 1999 panel - Serum or Plasma [facility] HospitalComprehensive metabolic 1999 panel - Serum or PlasmaMercy Health Fairfield HospitalComprehensive metabolic 1999 panel - Serum or PlasmaMercy Health Fairfield HospitalComprehensive metabolic 1999 panel - Serum or [facility] Medical CenterDXA Skeletal system.axial Views for bone densityUniversity Hospitals Health System Ctr Work Phone: DXA Skeletal system.axial Views for bone density [facility] HospitalECG 12 LeadECG 12 Lead ECG Routine Persistent atrial fibrillation with RVR (Multi) 12/07/2024 2:26 PM [facility] Service Area Work Phone: ECG 12 LeadECG 12 Lead ECG Routine Typical atrial flutter (Multi) 02/19/2025 3:38 PM [facility] Work Phone: Eosinophils/100 leukocytes in Blood by Automated count [facility] HospitalErythrocyte distribution width [Ratio] by Automated [facility] Medical CenterErythrocyte distribution width [Ratio] by Automated [facility] CenterErythrocytes [#/volume] in [facility]Erythrocytes [#/volume] in [facility] YoungstownFREE K+L LT CHAINS, QN, SFREE K+L LT CHAINS, QN, S Lab STAT 08/01/2024 1:10 PM [facility] HospitalGlomerular filtration rate [Volume Rate/Area] in Serum, Plasma or Blood by Creatinine [facility] HospitalHematocrit [Volume Fraction] of [facility] YoungstownHematocrit [Volume Fraction] of [facility] YoungstownHemoglobin [Mass/volume] in [facility] Hemoglobin [Mass/volume] in [facility] YoungstownLeukocytes [#/volume] corrected for nucleated erythrocytes in Blood by Automated [facility] DaytonLeukocytes [#/volume] corrected for nucleated erythrocytes in Blood by Automated [facility] Leukocytes [#/volume] in [facility] YoungstownLymphocytes [#/volume] in Blood by Automated [facility] Lymphocytes/100 leukocytes in Blood by Automated [facility] CenterMCH [Entitic mass] by Automated countMercy Health Fairfield HospitalMCH [Entitic mass] by Automated countMercy Health Fairfield HospitalMCHC [Mass/volume] by Automated [facility] CenterMCHC [Mass/volume] by Automated [facility] CenterMCV [Entitic volume] by Automated [facility] CenterMCV [Entitic volume] by Automated [facility] CenterMonocytes [#/volume] in Blood by Automated [facility] CenterMonocytes/100 leukocytes in Blood by Automated [facility] CenterNeutrophils [#/volume] in Blood by Automated [facility] CenterNeutrophils/100 leukocytes in Blood by Automated [facility] CenterNucleated erythrocytes [Presence] in Blood by Automated [facility] Medical CenterPatient [facility] Work Phone: Patient referralUniversity Hospitals Health System Ctr Work Phone: Platelet mean volume [Entitic volume] in Blood by Automated [facility] Medical CenterPlatelet mean volume [Entitic volume] in Blood by Automated [facility] Medical CenterPlatelets [#/volume] in [facility] YoungstownPlatelets [#/volume] in [facility] YoungstownProtein electrophoresis, serumProtein electrophoresis, serum Lab STAT 08/01/2024 1:10 PM [facility] Work Phone: Protein electrophoresis, serumProtein electrophoresis, serum Lab Routine 04/01/2025 2:44 PM [facility] [employer] Work Phone: Protein electrophoresis, serumProtein electrophoresis, serum Lab Routine 08/12/2025 1:57 PM [facility] [place] Work Phone: Protein/Creatinine [Ratio] in UrineMercy Health Fairfield HospitalRadiologic examination osseous survey [facility] Work Phone: Radiologic examination osseous survey [facility] HospitalRadiologic examination osseous survey [facility] HospitalRadiologic examination osseous survey [facility] HospitalRenal function 1999 panel - Serum or PlasmaMercy Health Fairfield HospitalRenal function 1999 panel - Serum or [facility] CenterRenal function 1999 panel - Serum or [facility] CenterRenal function 1999 panel - Serum or [facility] End: 70-90-5347QX Heart TransthoracicREHABILITATION HOSPITAL OF [facility] Service Area Work Phone: Comment on above:Once for 1 Occurrences starting 11/02/2023 until 11/02/2023[facility] [place] Payers DatePayer CategoryPayerPolicy [id number] 2011Managed Care Other (unspecified)[facility] [id number] or Other [facility] SOLOMON Mart[place]ST[place], [place] [id number]53.77103-60-3145Peqqari Health Insurance1.2.840.277689.1.13.693.2.7.9.826004.201413.94942-24-4025Qrsanni 97-21-3794Bkexygi008240-89 e3lq386v-1s2l-538e-xmai-[id number] [id number] [id number] 2..6.592730.76883134-79-5736Pnlz-xmy3v89w18w-6jc3-75xr-54f9-53m55r36s88w [id number] 2.160.9.297676.53844425-64-8293Hnxagak1457248 2.0.1.834833.3.579.2.57679-74-5364Rmolgbv2765136 2..1.545822.3.579.2.51739-58-7646Jaiyind2466055 2.16840.1.983872.3.579.2.52749-08-3789Soizqsm6927852 2.0.1.699441.3.579.2.29351-24-5997Dldielb8900085 2.16840.1.553229.3.579.2.03945-56-5034Zwkfeep9719970 2.16840.1.391230.3.579.2.75874-43-8937Naypqfz9377305 2.16.840.1.230010.3.579.2.33819-69-2929Pzwhvkg3108898 2.16.840.1.817535.3.579.2.93235-97-3379Ubahzeq0433198 2.16.840.1.434675.3.579.2.69694-92-6194Ihcjuln8183562 2.16840.1.290436.3.579.2.16306-45-8702Xzrwuec1262766 2.16840.1.037400.3.579.2.84359-01-5619Tsbjuwz5524908 2.16840.1.384320.3.579.2.06909-82-5789Akuiyii2614790 2.16840.1.355105.3.579.2.98235-33-5499Vnyimts1849946 2.16840.1.302284.3.579.2.54288-87-7014Dodakxt992655356 2.16840.1.183275.3.57[id number] 2.16840.1.528114.3.579.2.83577-19-7393Angxsqi78872941 2.16840.1.420657.3.579.2.954512-43-3019Ngizcix7681840 2.16840.1.124598.3.579.2.777288-51-8303Yjjnmwy424586459 2.16840.1.117877.3.579.2.458164-01-9246Gtdujys030312228 2.16840.1.723007.3.579.2.899731-97-8431Ebqhuww826527508 2.16840.1.978883.3.579.2.236047-15-6058Uaueksy296489203 2.16.840.1.121720.3.579.2.250395-87-7501Qizrxhk079493243 2.16.840.1.271537.3.579.2.810154-83-6972Emctocr124673559 2.16.840.1.197975.3.579.2.494431-81-4566Cvxrxlr63281027 2.16.840.1.791918.3.579.2.55270-47-0851Yifqvlp66163925 2.16.840.1.735975.3.579.2.952Sznaecb6583272 2.16.840.1.620219.3.579.2.593Unknown [id number] 2.16.840.1.636340.3.579.2.938Ovtcrij76997514 2.16.840.1.608003.3.579.2.902Dlrofiz38929001 2.16.840.1.968331.3.579.2.531 [id number] 2.16.840.1.506027.3.579.2.627Jtuzzym81776313 2.16.840.1.865298.3.579.2.996Xrimfre36724581 2.16840.1.308100.3.579.2.531 Social History DateTypeDetailFacilityStart: 10-04-2023 End: 24-53-0550Utrtz caffeine consumption, 2-3 servings a dayDaily caffeine consumption, 2-3 servings a dayTri-State [facility]-[place] [address] DO Work Phone: Start: 03-08-2022 End: 99-09-2202Bjkmuml smoking statusNever smoked tobacco (finding)[facility] Tobacco smoking statusNeverExecutive [facility] start: 10-04-2023 End: 36-56-3543Jty Assigned At [facility] HospitalFeBaptist [facility] [employer] Other Start: 07-30-9372Crs Assigned At [facility] Centertart: 10-04-2023 End: 20-58-5288Qalijrf use and exposureSmokeless tobacco non-userUnPremier Health [facility] Work Phone: Start: 10-04-2023 End: 95-67-8513Ollflyr intakeLifetime non-drinker (finding)[facility] Work Phone: Start: 80-42-6984Ibz Assigned At BirthNot on file [facility] Work Phone: Start: 09-24-2023 End: 52-94-1006Znbgvrgr to SARS-CoV-2 (event)Not sureSt. John of God HospitalStart: 11-28-2024 End: 33-86-4944BgaOaurxq (finding)[facility] Hospitaltart: 12-60-8070OcipnuixwK[facility]tering Memorial Hospital Work Phone: Tobacco smoking status NHISTobacco smoking consumption unknownMagruder Hospital Medical Equipment Procedure CodeEquipment CodeEquipment Original TextEquipment IdentifierDates [facility] 100 packStart: 07-10-2018 Goals DatePatient GoalDesired Activity/State Functional Status NiefNxvuqbhqffMutatyCriayari81-41-7914Pmrnjnwoqv statusPatient at Baseline [facility] Work Phone: [phone]kgyiowuwy statusPatient is Progressing Toward BaselineKettering Memorial Hospital Work Phone: [phone]vheqomkzn statusPatient at Baseline [facility] Work Phone: [phone] 667-623602251933-30-8077Cycoesweph StatusN/AExecutive [facility] of [facility] Mental Status DsmyKqjjpoavkcFfxfdbIashmrxl63-64-1387Xpyqnlxai functionPatient at Baseline [facility] Work Phone: 1(965) 754-949202-961574-07-1962Omdxgmsux functionPatient at Baseline [facility] Work Phone: [phone]Nwrcplyrp functionCognitive Status Patient at BaselineUniversity Hospitals Health System Ctr Work Phone: Clinical Notes 07-27-2017 to 08-12-2025 Note Date & EelzQkpkWadpmjsb18-34-3991 Evaluation note* Diagnosis Onset Date Resolution Status Admit Date CKD (chronic kidney disease) stage 4, GF R 15-29 ml/min chronicSeptember 2024 1:37pmHyperlipidemiachronicSeptember 2024 1:37pmAtrial fibrillationresolvedSeptember 2024 1:37pmDiabetes mellitus type II, controlledresolvedSeptember 2024 1:37pmHTN (hypertension)resolved August 12, 2025 1:37pmMultiple myeloma in remissionresolvedSeptember 2024 1:37pmUnsteady gaitresolvedSeptember 2024 1:37pmAnemiainactive August 12, 2025 1:62esC46 deficiency anemiainactiveSeptember 2024 1:37pmCerebellar stroke, acuteinactiveSeptember 2024 1:37pmDizziness deletedSept2024 1:37pmHearing lossinactiveSeptember 2024 1:37pm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inactiveSeptember 2024 1:37pm Multiple myelomainactiveSeptember 2024 1:37pmSteroid-induced hyperglycemia inactiveSept2024 1:37pmTransient left leg weaknessinactiveSeptember 2024 1:37pmDouble visiondeletedSeptember 2024 1:37pmLeft facial numbnessdeletedSeptember 2024 1:37pmShoulder paindeletedSeptember 2024 1:37pmWeaknessdeletedSeptember 2024 1:37pm [facility] Work Phone: 1(169) 330-607707-11-2025 History of Present illness Narrative* Elicia Rhodes MD - 05/24/2025 11:20 AM EDT Chief Complaint Patient presents with Follow-up 2 month Follow up for Hypertension Subjective Hailee Trivedi is a 85 y.o. female HPI Patient is here for follow-up continue management for persistent atrial fibrillation maintaining sinus rhythm following her cardioversion with low-dose flecainide and she is on long-term anticoagulation with Eliquis. Since last time I saw her she denies any cardiac complaint of chest pain, palpitation, lightheadedness, dizziness or syncope. She remains reasonably active. She denies any change in cardiac status or symptoms. EKG today showed normal sinus rhythm. Recent lab work noted and reviewedwith her. ASSESSMENT: 1. Persistent atrial fibrillation. Currently in normal sinus rhythm. She is on Eliquis 2.5 mg twicedaily 2. Remote evaluation for chest pain, resolved. No recurrence. She did have noninvasive assessment at [facility], which was negative. Couple of years ago. She declined stress testing in the past 3. Hypertension, controlled. With low-dose Coreg 4. Hyperlipidemia, on atorvastatin and fish oil. Controlled recent lab noted and reviewed with her 5. Chronic kidney disease. Approaching stage IV so far has been stable 6. Multiple myeloma. Patient report in remission follows by hematology 7. Prior presentation with cerebellar infarct. Currently on Eliquis. I believe aspirin was discontinued recently due to GI bleed currently on Eliquis unable to tolerate diet 8. Moderate aortic regurgitation no recent echo recent echo noted 9. Moderate obesity with BMI 31 10.There had been some notation in the chart that she had dilated aortic root. Recent echo showed aortic root 2.7 cm Plan 1. I had lengthy discussion with the patient and her daughter regarding anticoagulation we discussed aspirin, Eliquis versus Watchman device following lengthy discussion the patient elected to remainon Eliquis 2.5 mg twice daily so far she is tolerating that well 2. Risk, benefit alternative anticoagulation reviewed with [...] her in 6 months Review of Systems Neurological: Positive for dizziness. All other systems reviewed and are negative. Vitals: 05/24/25 1116 BP: 120/60 BP Location: Left arm Patient Position: Sitting Pulse: 67 Weight: 83 kg (183 lb) Height: 1.626 m (5' 4 ) EKG done in office today Objective Physical [...] normal. Allergies Oxybutynin Current Medications Current Outpatient Medications Medication Instructions apixaban (ELIQUIS) 2.5 mg, oral, 2 times daily atorvastatin (LIPITOR) 40 mg, oral, Daily carvedilol (COREG) 3.125 mg, 2 times daily cholecalciferol (Vitamin D-3) 25 MCG (1000 UT) tablet 1 tablet, Daily docusate sodium (COLACE) 100 mg, Daily ferrous sulfate 325 mg, Daily with breakfast fish oil concentrate ([place]-3) 120-180 mg capsule 1 capsule, 2 times daily flecainide (TAMBOCOR) 50 mg, oral, 2 times daily insulin NPH (Isophane) (HUMULIN N,NOVOLIN N) 15 Units, Every morning Slow-Mag 71.5 mg tablet,delayed release (DR/EC) 1 tablet, Daily (0630) sodium citrate-citric acid (Oracit) 490-640 mg/5 mL solution 5 mL, Daily Assessment/Plan 1. Persistent atrial fibrillation with RVR (Multi) Follow Up In Cardiology ECG 12 Lead 2. Essential hypertension Follow Up In Cardiology 3. Pulmonary hypertension (Multi) 4. Mixed hyperlipidemia 5. Atrial flutter, unspecified type (Multi) 6. 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 Stage 3a chronic kidney disease (Multi) 9. BMI 31.0-31.9,adult 10. Never smoked tobacco Scribe Attestation By signing my name below, I, Emily Williamson LPN , Scribe attest that this documentation has been [...] and plan. documented in this [facility] Work Phone: 1(366) 225-165207-11-2025 Instructions* Patient Instructions* Emily Casey LPN - 05/24/2025 11:20 AM EDT Please bring all medicines, vitamins, and herbal supplements with you when you come to the office. Prescriptions will not be filled unless you are compliant with your follow up appointments or have a follow up appointment scheduled as per instruction of your physician. Refills should be requested at the time of your visit. BMI was above normal measurement. Current weight: 83 kg (183 lb) Weight change since last visit (-) denotes wt loss -1 lbs Weight loss needed to achieve BMI 25: 37.7 Lbs Weight loss needed to achieve BMI 30: 8.6 Lbs Provided instructions on dietary changes Provided instructions on exercise. * Attachments The following attachments cannot be sent through Care Everywhere. * Heart Healthy Diet (Brazilian) documented in this [facility] Work Phone: [phone] 374-795405-14-2025 History of Present illness Narrative* Elicia Rhodes MD - 03/27/2025 1:30 PM EDT Chief Complaint Patient presents with Follow-up 1 week BP check cardioversion Subjective Hailee Trivedi is a 84 y.o. female HPI Patient is here for blood pressure check and following cardioversion. She called recently complaining of lightheadedness and the dose of Coreg had a reduced and she also underwent cardioversion. She is currently in sinus rhythm without any complaint 1. Hypertension controlled. The dose of Coreg was reduced by half recently 2. Atrial flutter remain sinus rhythm following cardioversion burton plan 1. Patient reports she is feeling well 2. EKG showed normal sinus rhythm ROS Vitals: 03/27/25 1340 03/27/25 1341 BP: 120/60 122/58 BP Location: Left arm Right arm Patient Position: Sitting Sitting Pulse: 66 Weight: 83.5 kg (184 lb) Height: 1.626 m (5' 4 ) EKG done in office today Objective Physical [...] normal. Allergies Oxybutynin Current Medications Current Outpatient Medications Medication Instructions apixaban (ELIQUIS) 2.5 mg, oral, 2 times daily atorvastatin (LIPITOR) 40 mg, oral, Daily carvedilol (COREG) 6.25 mg, oral, 2 times daily (morning and late afternoon) cholecalciferol (Vitamin D-3) 25 MCG (1000 UT) tablet 1 tablet, Daily docusate sodium (COLACE) 100 mg, Daily ferrous sulfate 325 mg, Daily with breakfast fish oil concentrate (Fresno-3) 120-180 mg capsule 1 capsule, 2 times daily flecainide (TAMBOCOR) 50 mg, oral, 2 times daily insulin NPH (Isophane) (HUMULIN N,NOVOLIN N) 15 Units, Every morning Slow-Mag 71.5 mg tablet,delayed release (DR/EC) 1 tablet, Daily (0630) sodium citrate-citric acid (Oracit) 490-640 mg/5 mL solution 5 mL, Daily Assessment/Plan 1. Essential hypertension Follow Up In Cardiology 2. Persistent atrial fibrillation with RVR (Multi) ECG 12 Lead 3. Atrial flutter, unspecified type (Multi) Scribe Attestation By signing my name below, IParis LPN, Scribe attest that this documentation has [...] and plan. documented in this [facility] Work Phone: [phone]) 636-568305-14-2025 Instructions* Patient Instructions* Paris Gordillo LPN - 03/27/2025 1:30 PM EDT Please bring all medicines, vitamins, and herbal supplements with you when you come to the office. Prescriptions will not be filled unless you are compliant with your follow up appointments or have a follow up appointment scheduled as per instruction of your physician. Refills should be requested at the time of your visit. BMI was above normal measurement. Current weight: 83.5 kg (184 lb) Weight change since last visit (-) denotes wt loss -1 lbs Weight loss needed to achieve BMI 25: 38.7 Lbs Weight loss needed to achieve BMI 30: 9.6 Lbs Provided instructions on dietary changes Provided instructions on exercise. * Attachments The following attachments cannot be sent through Care Everywhere. * DASH Diet (Brazilian) documented in this [facility] Work Phone: [phone]) 403-570605-12-2025 History of Present illness Narrative* KRISTEN Dinero - 03/25/2025 1:40 PM EDT Images from the original note were not included. Chief Complaint Patient presents with Stroke Subjective Hailee Trivedi, 84 y.o., female STROKE -reports an event in January -involuntarily leg movements in the middle of the night when she got up to use the restroom -did not fall due to holding on to the walker -dizziness is worse. She did have to leave yazidism early one day She admits ongoing balance difficulty. She denies any falls. She admits intermittent tingling in the bilateral feet but this is from a prior stroke. She denies any numbness. She continues to feel somewhat weak and fatigued. She ambulates with a cane. She has arthritis in the left knee. She would like to have to imaging done. Review of Systems Constitutional: Positive for fatigue. Negative for appetite change and fever. Respiratory: Negative for cough, shortness of breath and wheezing. Cardiovascular: Negative for chest pain, palpitations and leg swelling. Gastrointestinal: Negative for abdominal pain, constipation, diarrhea and nausea. Musculoskeletal: Positive for arthralgias and gait problem. Negative for myalgias. Neurological: Negative for dizziness, tremors, numbness and headaches. Medication List Accurate as of March 25, 2025 1:44 PM. If you have any questions, ask your nurse or doctor. CONTINUE taking these medications acyclovir 400 MG tablet; Commonly known as: Zovirax amLODIPine 5 MG tablet; Commonly known as: Norvasc apixaban 2.5 MG tablet; Commonly known as: Eliquis Aspirin Adult Low Strength 81 MG EC tablet; Generic drug: aspirin atorvastatin 40 MG tablet; Commonly known as: Lipitor carvedilol 12.5 MG tablet; Commonly known as: Coreg DULoxetine [address] capsule; Commonly known as: Cymbalta ferrous sulfate 325 (65 Fe) MG tablet FISH OIL PO flecainide 50 MG tablet; Commonly known as: Tambocor HumuLIN N 100 UNIT/ML injection; Generic drug: insulin NPH (Isophane) Oracit 490-640 MG/5ML solution; Generic drug: Sod Citrate-Citric Acid VITAMIN B-12 PO Xarelto 15 MG tablet; Generic drug: rivaroxaban Past Medical History: Diagnosis Date Aortic aneurysm (CMS/HCC) Chronic kidney disease Chronic kidney disease, stage 4 (severe) ([facility]/HCC) Chronic myofascial pain Diabetes mellitus ([facility]/HCC) Difficulty walking HL (hearing loss) Hyperlipidemia ([facility]/HCC) Hypertension ([facility]/HCC) Kidney disease Kidney stones snf (current) use of insulin ([facility]/HCC) Multiple myeloma Neuropathy in diabetes ([facility]/HCC) Stroke ([facility]) Transient ischemic attack Type 2 diabetes mellitus with hyperglycemia ([facility]) Vitamin D deficiency Weakness of limb Past Surgical History: Procedure Laterality Date CHOLECYSTECTOMY HEMORRHOID SURGERY HYSTERECTOMY KIDNEY STONE SURGERY KIDNEY SURGERY Left Stent/ Stent Removal Family History Problem Relation Name Age of Onset Diabetes Mother Rossana Cardenas Spike Heart disease Mother Rossana Cardenas Spike Stroke Mother Rossana Cardenas Spike Cancer Father Multiple myeloma Father Diabetes Other Heart disease Other Hyperlipidemia Other Hypertension Other Multiple sclerosis Other Stroke Other Social History Tobacco Use Smoking status: Never Smokeless tobacco: Never Substance Use Topics Alcohol use: Never Allergies: Hydrocodone-acetaminophen, Pregabalin, Lenalidomide, and Oxybutynin Vitals: 03/25/25 1329 BP: 150/89 Pulse: 64 Body mass index is 29.86 kg/m . Weight: 185 lb PLAN -Patient was roomed and then left without being seen Lia Velazco PA-C documented in this encounterThe [facility] Institute of St. [id number] [address] Cardioversion Procedure Note Signed Patient: Hailee Trivedi MR#: [id number] : 1940 Acct:[id number] Age/Sex: 84 / F Adm Date: 5 Loc: Room: Type: [facility] Attending Dr: Jerrica Overton FACILITY MAINTENANCE WORKER Copies to: RAMAKRISHNA Willett MD Mourhaf A Traboulssi, MD~ Cardioversion PRE PROCEDURE DATE OF PROCEDURE: 02/26/2025 PRE-OPERATIVE DIAGNOSIS: Atrial Fibrillation/flutter ASA CLASSIFICATION: 2 MALLAMPATI CLASSIFICATION: Class 2: PROCEDURE PROCEDURE PERFORMED: Elective direct current cardioversion under conscious sedation PROCEDURE DESCRIPTION: After informed consent obtained by explaining risks, benefits, and alternatives to patient. Informed consent signed. Continuous blood pressure, O2 saturations, and heart rate monitoring was established. Initially therhythm was relatively difficult to identify. They gave 2.5 mg of IV Lopressor which clearly unmask atrial flutter. Following thatA total of 25 mg Diprovan was given and using 150 joules, a synchronized shock was delivered with anterior/posterior pads position. This resulted in the conversion to normal sinus rhythm. I did give 0.5 mg of atropine to avoid the bradycardia No complications were noted. COMPLICATIONS: None PLAN: Assessment 1. Successful cardioversion of atrial fibrillation/flutter with normal sinus rhythm 2. Complication none Plan continue present medical Documented By: Elicia Rhodes MD 02/26/25 0956 Signed By: 02/26/25 0958 [facility]04-08-2025 History of Present illness Narrative * Jerrica Overton, FACILITY 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 EQUIPMENT SPECIALIST - 02/19/2025 3:30 PM EDT Chief Complaint I am not sure this new medication is really doing much Reason for Visit Add-on Patient presents to the office today for outpatient follow-up for recent medication changes and ECG. Last evaluated in clinic by Dr. Rhodes Nov 01, 2024. At that time in NSR. Nov 30, 2024: To office with palpitations and ECG atrial fib. Jan 02, 2025: Uneventful DCC with hoahaoism NSR. February 04, 2025: Hospitalization at [facility] - ECG atrial fib. February 06, 2025: Outpatient initiation Flecainide 50mg twice daily. ECG in office today coarse atrial fib/atrial flutter. She reports compliance with Eliquis and Flecainide. History of Present Illness Pleasant 84-year-old female who presents to the office today ambulatory with cane and steady gait, utilizes a rollator most of the time at home. She has had 2 hospitalizations during January 2025 at [facility]. Records are somewhat limited but I believe the first hospitalization was due to volume overload. She was then readmitted within the week on February 04, 2025 due to MARIAMA. She does recall during the hospitalizations being told she was back in atrial fibrillation . Dr. Rhodes reviewed hospital records and noted recurrent atrial fibrillation. On February 06, 2025tereso was placed on flecainide 50 mg twice daily. She presents the office today where she verbalizes compliance with flecainide and states no interruption to her Eliquis dosage. She reports that since most recent discharge she is making slow but steady progress . She is working with physical therapy and reports ambulating 700 feet she needs to stop once at rest. She sleeps in a recliner mostly for comfort. She denies any dizziness or lightheadedness, no syncope. She reports sometimes I cannot breathe this dyspnea is mostly related to being in a hurry, anxiety. She wasunable to find the office today so she was rushing to come in from the parking lot and felt a little bit short of breath but symptoms abated really quickly with rest. She denies any type of palpitations. She reports her home blood pressure machine shows her that she has been out of rhythm a couple times over the last month. She reports her home heart rates since discharge have been 110-130, over the last 3 days pretty consistently at 93. She reports her heart rate is never in the 60s and 70s like before . EKG in office today atrial flutter-coarse atrial fibrillation at 100 bpm. She has been compliant with flecainide dosing since February 06, 2025. QRS 104 ms. Current AV manuel blocking agents include carvedilol 12.5 mg twice daily. Symptomatic atrial fibrillation with dyspnea on exertion. Due to symptomatic atrial fibrillation in the setting of appropriate anticoagulation, the risk benefits and procedure of cardioversion were discussed including, but not limited to anesthesia reaction, irritation at defibrillator site and progression to high grade heart block requiring implant of temporary pacemaker. Patient is in agreement to proceed. Procedure will be scheduled. Patient reports that overall has no complaint(s) of chest pain, chest pressure/discomfort, claudication, exertional chest pressure/discomfort, and near-syncope Review of Systems Cardiovascular: Positive for palpitations. Negative for chest pain, dyspnea on exertion, irregular heartbeat, leg swelling, near-syncope, orthopnea, paroxysmal nocturnal dyspnea and syncope. Respiratory: Positive for shortness of breath. Visit Vitals BP 120/66 (BP Location: Right arm, Patient Position: Sitting) Pulse 100 Ht 1.626 m (5' 4 ) Wt 83.9 kg (185 lb) BMI 31.76 kg/m Smoking Status Never BSA 1.95 m Physical Exam Vitals and nursing note reviewed. HENT: Head: Normocephalic. Cardiovascular: Rate and Rhythm: Normal rate. Rhythm regularly irregular. Heart sounds: Normal heart sounds. Pulmonary: Effort: Pulmonary effort is normal. Breath sounds: Normal breath sounds. Abdominal: Palpations: Abdomen is soft. Musculoskeletal: Right lower leg: No edema. Left lower leg: No edema. Skin: General: Skin is warm and dry. Neurological: General: No focal deficit present. Mental Status: She is alert. Psychiatric: Mood and Affect: Mood normal. Behavior: Behavior normal. Allergies Allergen Reactions Oxybutynin Hives and Rash Current Outpatient Medications Medication Instructions apixaban (ELIQUIS) 2.5 mg, oral, 2 times daily atorvastatin (LIPITOR) 40 mg, oral, Daily carvedilol (COREG) 12.5 mg, oral, 2 times daily cholecalciferol (Vitamin D-3) 25 MCG (1000 UT) tablet 1 tablet, Daily docusate sodium (COLACE) 100 mg, Daily ferrous sulfate 325 mg, Daily with breakfast fish oil concentrate (Fresno-3) 120-180 mg capsule 1 capsule, 2 times daily flecainide (TAMBOCOR) 50 mg, oral, 2 times daily insulin NPH (Isophane) (HUMULIN N,NOVOLIN N) 15 Units, Every morning Slow-Mag 71.5 mg tablet,delayed release (DR/EC) 1 tablet, Daily (0630) sodium citrate-citric acid (Oracit) 490-640 mg/5 mL solution 5 mL, Daily Assessment: Symptomatic persistent coarse atrial fib/atrial flutter with CVR on coreg 12.5mg BID and close to 2weeks of flecainide 50mg BID. Jan 02, 2025 [facility] failed to maintain NSR on AVN blocking agents. Her NSR is in 60s with 1st AVB on coreg 12.5mg BID 2. CHADS VASc 6 chronically anticoagulated renal dose Eliquis (age 84, Cr. 2.9). No missed dosing. Denies bleeding diathesis. Recent h/h stable 3. High risk med use: Flecainide start date January 27, 2025. Denies prior ND, CAD. MPI 2016 in old EMR but will not open document. No QRS widening. 4. Nov 2024 TTE: LVEF 58%; LA ULN: MR mild/moderate: AR mild/moderate 5. Primary Prevention: A. HTN - optimal B. HLD - moderate intensity statin, due for annual wellness labs C. Diabetes - on statin, no MARK/ARB d/t CKD. Unknown HgA1c D. BMI 31 - Reviewed the merits of healthy lifestyle choices on overall cardiovascular health. 6. CKD stage IV baseline CR. 2.6 - 2.9 Plan: Through informed decision making process incorporating patients unique circumstances, the followingtreatment plan will be initiated: Continue current medications without changes Will arrange Cardioversion with Dr. Rhodes please make sure to take Eliquis and Flecainide morning of procedure ECG one week post DCC Keep schedule follow up Dr. Kendra Overton MSN, FACILITY 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 EQUIPMENT SPECIALIST, PMHNP-[facility] [place], [place] Please excuse any errors in grammar or translation related to this dictation. Voice recognition software was utilized to prepare this document. documented in this [facility] Work Phone: [phone]) 728-772804-08-2025 Instructions* Patient Instructions* TED Willett - 02/19/2025 3:30 PM EDT Please bring all medicines, vitamins, and herbal supplements with you when you come to the office. Prescriptions will not be filled unless you are compliant with your follow up appointments or have a follow up appointment scheduled as per instruction of your physician. Refills should be requested at the time of your visit. EKG done in office today PLAN: Through informed decision making process incorporating patients unique circumstances, the followingtreatment plan will be initiated: Continue current medications without changes Will arrange Cardioversion with Dr. Rhodes please make sure to take Eliquis and Flecainide morning of procedure ECG one week post DCC Keep schedule follow up Dr. Rhodes documented in this [facility]St[facility] Work Phone: [phone] 357-965002-26-2025 History of Present illness Narrative* Grant Ivory MA - 01/09/2025 1:00 PM EST Patient is here for an EKG visit ordered by Dr. Rhodes due to atrial fibrillation. Dr. Rhodes is in suite to review EKG prior to discharge. Patient is here status post Cardioversion completedon 01/02/25 . Medication list was Updated verbally with patient in office. Denies any cardiac complaints at this time. To Dr. Rhodes to read. Vitals: 01/09/25 1318 BP: 94/62 BP Location: Left arm Patient Position: Sitting Pulse: 68 Weight: 83.6 kg (184 lb 6.4 oz) Height: 1.626 m (5' 4 ) EKG done in office today documented in this [facility]Un[facility] Work Phone: 1(113) 470-419702-19-2025 [facility]-2025 Progress note Author Akin Suarez [facility] HospitalNote Date/TimeFebruary 2024 10:07am [place] [address] Nephrology Progress Note Signed Patient: Hailee Trivedi MR#: [id number] : 1940 Acct:[id number] Age/Sex: 84 / F Adm Date: 5 Loc: 3T Room: [address] [place] [address] Type: ADM IN Attending Dr: Jonathan Valenzuela [...] reported that she was recently admitted at [facility] and during hospitalization she was given IV Lasix and was noticed to have a worsening renal function. She was discharged home without Lasix. She reported after going home she was retaining fluid with increased leg swelling and shortness of breath. Patient has CKD due to the myeloma and DM with baseline serum current around2.3 to 2.7 mg/dL. She follows in our office for her CKD care and contact our office for increased shortness of breath and leg swelling. She was advised to come to the emergency room. On evaluation inthe emergency room patient had a chest x-ray which showed interstitial changes with bilateral pleural effusion. She was also found to have elevated BNP 376. Patient reported that she is scheduled to have a cardioversion by her furnace packer Dr. Rhodes. Nephrology is consulted for CKD [...] Skin: No rashes , warm to touch METAL AND PLASTIC HEATER: Awake,Alert, following simple command Musculoskeletal: No swelling [...] 5 Mg Tablet) 5 mg PO DAILY [facility] Stop: 12/19/25 16:59 Last Admin: 12/22/24 09:03 Dose: 5 mg Apixaban (Apixaban 2.5 Mg Tablet) 2.5 mg PO BID KARISSA Stop: 12/19/25 20:59 Last Admin: 12/22/24 09:04 Dose: 2.5 mg Atorvastatin Calcium (Atorvastatin 40 Mg Tablet) 40 mg PO QPM KARISSA Stop: 12/19/25 20:59 Last Admin: 12/21/24 20:28 Dose: 40 mg Carvedilol (Carvedilol 12.5 Mg Tablet) 12.5 mg PO BID.WITH.MEALS [facility] Stop: 12/19/25 16:59 Last Admin: 12/22/24 09:04 Dose: 12.5 mg Dextrose (Dextrose 50% In Water 25 Gm/50 Ml Syringe) 0 gm IV-PUSH PRN PRN PRN Reason: Hypoglycemia Stop: 12/19/25 16:31 Furosemide (Furosemide 40 Mg Tablet) 40 mg PO DAILY.8A [facility] Stop: 12/21/25 07:59 Last Admin: 12/22/24 09:04 Dose: 40 mg Glucose (Dextrose 40% Gel 15 Gm Tube) 0 gm PO PRN PRN PRN Reason: Hypoglycemia Stop: 12/19/25 16:31 Hydralazine HCl (Hydralazine 20 Mg/Ml Vial) 10 mg IV-PUSH Q4H PRN PRN Reason: if SBP > 185 Stop: 12/19/25 16:30 Insulin Aspart (Insulin Aspart 300 Units/3 Ml) 0 units SUBCUT TID.WM.HS [facility]; Protocol Stop: 12/19/25 16:59 Last Admin: 12/22/24 09:04 Dose: 1 units Potassium Chloride (Potassium Chloride Er 20 Meq Tab.Er.Prt) 20 meq PO DAILY [facility] Stop: 12/22/25 08:59 Last Admin: 12/22/24 09:04 [...] signed by Akin Suarez MD> 12/22/24 1007 [facility] Work Phone: [phone]) 546-301902-07-2025 Progress note Author Alivia Arana [facility] HospitalNote Date/TimeFebruary 2024 8:46pm [place] [address] Hospitalist Progress Note Signed Patient: Hailee Trivedi MR#: [id number] : 1940 Acct:[id number] Age/Sex: 84 / F Adm Date: 5 Loc: Room: [address] [place] [address] Type: ADM IN Attending Dr: Jonathan Valenzuela [...] the plan of care and confirmed the resident's/architecture intern/medical student/nurse practitioner's dictation/written note. Agree with above plan, monitoring renal function, tentative plan for discharge tomorrow. Documented By: Alivia Arana APRN 12/21/24 1112 Signed By: <Electronically signed by RAMAKRISHNA Arana> 12/21/24 1120 <Electronically signed by Jonathan Valenzuela MD> 12/21/242045 [facility] Work Phone: 1(871) [phone] Progress note Author Akin Suarez [facility] HospitalNote Date/TimeFebruary 2024 9:35am [address] [address] Nephrology Progress Note Signed Patient: Hailee Trivedi MR#: [id number] : 1940 Acct:[id number] Age/Sex: 84 / F Adm Date: 5 Loc: Room: [address] [place] [address] Type: ADM IN Attending Dr: Jonathan Valenzuela [...] reported that she was recently admitted at [facility] and during hospitalization she was given IV Lasix and was noticed to have a worsening renal function. She was discharged home without Lasix. She reported after going home she was retaining fluid with increased leg swelling and shortness of breath. Patient has CKD due to the myeloma and DM with baseline serum current around2.3 to 2.7 mg/dL. She follows in our office for her CKD care and contact our office for increased shortness of breath and leg swelling. She was advised to come to the emergency room. On evaluation inthe emergency room patient had a chest x-ray which showed interstitial changes with bilateral pleural effusion. She was also found to have elevated BNP 376. Patient reported that she is scheduled to have a cardioversion by her furnace packer Dr. Rhodes. Nephrology is consulted for CKD [...] Skin: No rashes , warm to touch METAL AND PLASTIC HEATER: Awake,Alert, following simple command Musculoskeletal: No swelling [...] 300 Units/3 Ml) 0 units SUBCUT TID.WM.HS [facility]; Protocol Stop: 12/19/25 16:59 Last Admin: 12/21/24 [...] physician into a diagnostic report(s) for Hailee Dayan Shikha. I have reviewed the report(s) and am [...] signed by Akin Suarez MD> 12/21/24 0935 [facility] Work Phone: 1(326) 652-822802-06-2025 History and physical note Author Alivia Arana [facility] HospitalNote Date/TimeFebruary 2024 8:40pm [place] [address] Hospitalist H&P Signed Patient: Hailee Trivedi MR#: [id number] : 1940 Acct:[id number] Age/Sex: 84 / F Adm Date: 5 Loc: Room: [address] [place] [address] Type: ADM IN Attending Dr: Jonathan Valenzuela [...] not discharged on any diuretics. She did follow-upwith Dr. Rhodes and is scheduled for cardioversion for her atrial fibrillation on 01/02/24. Currently she is on room air with SpO2 in the high 90s, denies chest pain, has no palpitations. She has mild intermittent cough without any pain on inspiration. Denies abdominal pain, nausea vomiting or diarrhea. Denies any fever or chills. Denies any urinary symptoms of frequency urgency or dysuria. Noheadache or dizziness Upon arrival to the ER, [...] negative unless noted in the HPI below PMFSH Source: Old Records Reviewed Medical History Congestive [...] subcut BID 07/05/24 [History Confirmed 12/19/24] omega 3-ume-meq-fish oil 1,000 mg (120 mg-180 mg) capsule [...] % (Auto) 27.1 % (.) 12/19/24 14:08 [place] % (Auto) 7.0 % (.) 12/19/24 14:08 Eos % (Auto) 0.9 % (.) 12/19/24 14:08 Baso % (Auto) 1.3 % (.) 12/19/24 14:08 Nucleat RBC Rel Count 0.2 /100 WBC (0-0.5) 12/19/24 14:08 Neut # (Auto) 5.3 x10E3/uL (1.8-7.7) 12/19/24 14:08 Lymph # (Auto) 2.3 x10E3/uL (1.00-4.8) 12/19/24 14:08 [place] # (Auto) 0.6 x10E3/uL (0.0-0.8) 12/19/24 14:08 [...] meals and at bedtime, SSI, consistent carbohydrate diet,hypoglycemic protocol 2. Atrial fibrillation/hyperlipidemia/CVA?resume home medications when verified CODE STATUS: DNR CCA without intubation discussed with patient and daughter DVT prophylaxis: On apixaban IP vs OBS Justification Based on differential dx, clinical care plan, and risk of adverse events, if untreated, in my clinical judgement this patient requires an acute care setting as: INPATIENT because of an expectation ofan over 2 midnight stay. Estimated length of stay (# of days): 2 Attending Provider Attestation Attending Physician Attestation: I personally saw this patient on the day of the encounter, reviewed the history,performed the chahal elements of the exam, formulated the plan of care and confirmed the resident's/architecture intern/medical student/nurse practitioner's dictation/writtennote. Patient seen on admission, agree with above plan. Documented By: Alivia Arana APRN 12/19/24 1546 Signed By: <Electronically signed by RAMAKRISHNA Arana> 12/19/24 1636 <Electronically signed by Jonathan Valenzuela MD> 12/20/242039 [facility] Work Phone: 1(451) 897-129202-06-2025 Progress note Author Alivia Arana [facility] HospitalNote Date/TimeFebruary 2024 8:40pm [place] [address] Hospitalist Progress Note Signed Patient: Hailee Trivedi MR#: [id number] : 1940 Acct:[id number] Age/Sex: 84 / F Adm Date: 5 Loc: 3T Room: [address] [place] [address] Type: ADM IN Attending Dr: Jonathan Valenzuela [...] Ml SUBCUT 12/19/25 16:59 Not Given TID.WM.[facility] Protocol Sodium Chloride 0 ml 12/19/24 11:48 [...] meals and at bedtime, SSI, consistent carbohydrate diet,hypoglycemic protocol 2. Atrial fibrillation/hyperlipidemia/CVA?resume home medications when verified CODE STATUS: DNR CCA without intubation discussed with patient and daughter DVT prophylaxis: On apixaban Attending Provider Attestation Attending Physician Attestation: Agree with above plan. Documented By: Alivia Arana APRN 12/20/24 1124 Signed By: <Electronically signed by RAMAKRISHNA Arana> 12/20/24 1522 <Electronically signed by Jonathan Valenzuela MD> 12/20/242039 [facility] Work Phone: 1(662) 203-310802-06-2025 Consult note Author Akin Suarez [facility] HospitalNote Date/TimeFebruary 2024 11:58am [place] [address] Nephrology Consult Note Signed Patient: Hailee Trivedi MR#: [id number] : 1940 Acct:[id number] Age/Sex: 84 / F Adm Date: 5 Loc: Room: [address] [place] [address] Type: ADM IN Attending Dr: Jonathan Valenzuela [...] reported that she was recently admitted at [facility] and during hospitalization she was given IV Lasix and was noticed to have a worsening renal function. She was discharged home without Lasix. She reported after going home she was retaining fluid with increased leg swelling and shortness of breath. Patient has CKD due to the myeloma and DM with baseline serum current around2.3 to 2.7 mg/dL. She follows in our office for her CKD care and contact our office for increased shortness of breath and leg swelling. She was advised to come to the emergency room. On evaluation inthe emergency room patient had a chest x-ray which showed interstitial changes with bilateral pleural effusion. She was also found to have elevated BNP 376. Patient reported that she is scheduled to have a cardioversion by her furnace packer Dr. Rhodes. Food Services Manager consulted for CKD and fluid overload management. [...] polydipsia Dermatological: denies any itching or rash [facility] Medical History Congestive heart failure (CHF) [...] subcut BID 07/05/24 [History Confirmed 12/19/24] omega 6-cko-zpk-fish oil 1,000 mg (120 mg-180 mg) capsule [...] 5 Mg Tablet) 5 mg PO DAILY [facility] Stop: 12/19/25 16:59 Last Admin: 12/20/24 08:20 Dose: Not Given Apixaban (Apixaban 2.5 Mg Tablet) 2.5 mg PO BID [facility] Stop: 12/19/25 20:59 Last Admin: 12/20/24 08:20 Dose: Not Given Atorvastatin Calcium (Atorvastatin 40 Mg Tablet) 40 mg PO QPM [facility] Stop: 12/19/25 20:59 Last Admin: 12/19/24 21:45 Dose: 40 mg Carvedilol (Carvedilol 12.5 Mg Tablet) 12.5 mg PO BID.WITH.MEALS [facility] Stop: 12/19/25 16:59 Last Admin: 12/20/24 07:37 [...] Aspart 300 Units/3 Ml) 0 units SUBCUT TID.[facility]; Protocol Stop: 12/19/25 16:59 Last Admin: [...] Skin: No rashes , warm to touch [employer]: Awake,Alert, following simple command Musculoskeletal: No swelling [...] Palm Jr., D.O.12/19/2024 2:57 PM Dictation Location: [place] [address] Any impression(s) listed above is documentation that [...] <Electronically signed by Akin Suarez MD> 12/20/24 1153 [facility] Work Phone: 1(450) 706-821802-05-2025 Evaluation note* Diagnosis Onset Date Resolution Status Admit Date Acute on chronic diastolic (congestive) heart failure resolvedFebruary 2024 4:18pmDyspnearesolvedFebruary 2024 4:18pmFluid retentionresolvedFebruary 2024 4:18pmCKD (chronic kidney disease) stage 4, GFR 15-29 ml/mininactiveFebruary 2024 4:18pmHypertensive chronic kidney disease with stage 1 through stage 4 chronic kiinactiveFebruary 2024 4:18pm Multiple myelomainactiveFebruary 2024 4:18pmType 2 diabetes mellitus with chronic kidney diseaseinactiveFebruary 2024 4:18pmHeart failuredeleted December 19, 2024 4:18pmSecondary hyperparathyroidism of renal originacute December 25, 2024 2:26pmCKD (chronic kidney disease) stage 4, GFR 15-29 ml/min inactiveFebruary 2024 2:26pmHyperlipidemiainactiveFebruary 2024 2:26pmHypertensive chronic kidney disease with stage 1 through stage 4 chronic kiinactiveFebruary 2024 2:26pmKidney stoneinactiveFebruary 2024 2:26pmMetabolic acidemiainactiveFebruary 2024 2:26pmMultiple myeloma inactiveFebruary 2024 2:26pmType 2 diabetes mellitus with chronic kidney diseaseinactiveFebruary 2024 2:26pmAcute on chronic diastolic (congestive) heart failureresolvedFebruary 2024 10:49amCKD (chronic kidney disease) stage 4, GFR 15-29 ml/mininactiveFebruary 2024 10:49am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inactiveFebruary 2024 10:49amAtrial fib/flutter, transient acuteMarch 2024 10:52amDepressionacuteMarch 2024 10:52amHypotension acuteMarch 2024 10:52am [facility] Work Phone: 1(257) 942-361201-24-2025 History of Present illness Narrative* Fadia Grace [...] she had an echocardiogram while in the [facility] on 11/21/24. To Dr. Rhodes to read Vitals: 12/07/24 1542 BP: 120/56 BP Location: Right arm Patient Position: Sitting Pulse: 86 Weight: 85.3 kg (188 lb) Height: 1.626 m (5' 4 ) EKG done in office today documented in this [facility] Work Phone: 1(457) 511-183301-15-2025 Evaluation note* Diagnosis Onset Date Resolution Status Admit Date Acute on chronic diastolic (congestive) heart failure resolvedJanuary 2024 10:36amCKD (chronic kidney disease) stage 4, GFR 15- 29 ml/mininactiveJanuary 2024 10:36amAtrial fibrillationresolvedJanuary 2024 1:03pmDiabetes mellitus type II, controlledresolvedJanuary 2024 1:03pmHTN (hypertension)resolvedNovuary 2024 1:03pmMultiple myeloma in remissionresolvedJanuary 2024 1:03pmUnsteady gaitresolvedJanuary 2024 1:03pmAnemiainactiveJanuary 2024 1:50esG28 deficiency anemiainactive December 12, 2024 1:03pmCerebellar stroke, acuteinactiveJanuary 2024 1:03pmCKD (chronic kidney disease) stage 4, GFR 15-29 ml/mininactiveJanuary 2024 1:03pmDizzinessdeletedJanuary 2024 1:03pmHearing lossinactive December 12, 2024 1:03pmHyperlipidemiainactiveJanuary 2024 1:03pm 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inactiveJanuary 2024 1:03pmMultiple myelomainactiveJanuary 2024 1:03pmSteroid-induced hyperglycemiainactive December 12, 2024 1:03pmTransient left leg weaknessinactiveNovuary 2024 1:03pmDouble visiondeletedNovuary 2024 1:03pmLeft facial numbnessdeleted December 12, 2024 1:03pmShoulder paindeletedNovuary 2024 1:03pmWeakness deletedNovuary 2024 1:03pmAcute on chronic diastolic (congestive) heart failureresolvedFebruary 2024 4:18pmDyspnearesolvedFebruary 2024 4:18pm Fluid retentionresolvedFebruary 2024 4:18pmCKD (chronic kidney disease) stage 4, GFR 15-29 ml/mininactiveFebruary 2024 4:18pmHypertensive chronic kidney disease with stage 1 through stage 4 chronic kiinactiveFebruary 2024 4:18pmMultiple myelomainactiveFebruary 2024 4:18pmType 2 diabetes mellitus with chronic kidney diseaseinactiveFebruary 2024 4:18pmHeart failuredeleted December 19, 2024 4:18pmSecondary hyperparathyroidism of renal originacute December 25, 2024 2:26pmCKD (chronic kidney disease) stage 4, GFR 15-29 ml/min inactiveFebruary 2024 2:26pmHyperlipidemiainactiveFebruary 2024 2:26pmHypertensive chronic kidney disease with stage 1 through stage 4 chronic kiinactiveFebruary 2024 2:26pmKidney stoneinactiveFebruary 2024 2:26pmMetabolic acidemiainactiveFebruary 2024 2:26pmMultiple myeloma inactiveFebruary 2024 2:26pmType 2 diabetes mellitus with chronic kidney diseaseinactiveFebruary 2024 2:26pmAcute on chronic diastolic (congestive) heart failureresolvedFebruary 2024 10:49amCKD (chronic kidney disease) stage 4, GFR 15-29 ml/mininactiveFebruary 2024 10:49am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inactiveFebruary 2024 10:49am [facility] Work Phone: 1(764) 527-592601-15-2025 Evaluation note* Diagnosis Onset Date Resolution Status Admit Date Acute on chronic diastolic (congestive) heart failure resolvedJanuary 2024 10:36amCKD (chronic kidney disease) stage 4, GFR 15- 29 ml/mininactiveJanuary 2024 10:36amAtrial fibrillationresolvedJanuary 2024 1:03pmDiabetes mellitus type II, controlledresolvedJanuary 2024 1:03pmHTN (hypertension)resolvedJanuary 2024 1:03pmMultiple myeloma in remissionresolvedNovuary 2024 1:03pmUnsteady gaitresolvedJanuary 2024 1:03pmAnemiainactiveJanuary 2024 1:73xaK26 deficiency anemiainactive December 12, 2024 1:03pmCerebellar stroke, acuteinactiveNovuary 2024 1:03pmCKD (chronic kidney disease) stage 4, GFR 15-29 ml/mininactiveJanuary 2024 1:03pmDizzinessdeletedJanuary 2024 1:03pmHearing lossinactive December 12, 2024 1:03pmHyperlipidemiainactiveJanuary 2024 1:03pm 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inactiveNovuary 2024 1:03pmMultiple myelomainactiveJanuary 2024 1:03pmSteroid-induced hyperglycemiainactive December 12, 2024 1:03pmTransient left leg weaknessinactiveNovuary 2024 1:03pmDouble visiondeletedNovuary 2024 1:03pmLeft facial numbnessdeleted December 12, 2024 1:03pmShoulder paindeletedJanuary 2024 1:03pmWeakness deletedNovuary 2024 1:03pmAcute on chronic diastolic (congestive) heart failureresolvedFebruary 2024 4:18pmDyspnearesolvedFebruary 2024 4:18pm Fluid retentionresolvedFebruary 2024 4:18pmCKD (chronic kidney disease) stage 4, GFR 15-29 ml/mininactiveFebruary 2024 4:18pmHypertensive chronic kidney disease with stage 1 through stage 4 chronic kiinactiveFebruary 2024 4:18pmMultiple myelomainactiveFebruary 2024 4:18pmType 2 diabetes mellitus with chronic kidney diseaseinactiveFebruary 2024 4:18pmHeart failuredeleted December 19, 2024 4:18pmSecondary hyperparathyroidism of renal originacute December 25, 2024 2:26pmCKD (chronic kidney disease) stage 4, GFR 15-29 ml/min inactiveFebruary 2024 2:26pmHyperlipidemiainactiveFebruary 2024 2:26pmHypertensive chronic kidney disease with stage 1 through stage 4 chronic kiinactiveFebruary 2024 2:26pmKidney stoneinactiveFebruary 2024 2:26pmMetabolic acidemiainactiveFebruary 2024 2:26pmMultiple myeloma inactiveFebruary 2024 2:26pmType 2 diabetes mellitus with chronic kidney diseaseinactiveFebruary 2024 2:26pmAcute on chronic diastolic (congestive) heart failureresolvedFebruary 2024 10:49amCKD (chronic kidney disease) stage 4, GFR 15-29 ml/mininactiveFebruary 2024 10:49am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inactiveFebruary 2024 10:49amAtrial fib/flutter, transient acuteMarch 2024 10:52amDepressionacuteMarch 2024 10:52amHypotension acuteMarch 2024 10:52am [facility] Work Phone: 1(112) 374-121712-19-2024 History of Present illness Narrative* Elicia Rhodes [...] recurrence. She did have noninvasive assessment at [facility], which was negative. Couple of years [...] breakfast., Disp: , Rfl: fish oil concentrate ([place]-3) 120-180 mg capsule, Take 1 capsule (1 [...] By signing my name below, Daisy Escobedo LPN, Scribe attest that this documentation has been prepared under the direction and in the presence of MD Clarisa. Provider Attestation - Scribe documentation All medical record entries made by the Scribe were at my direction and personally dictated by me. Emi reviewed the chart and agree that the record accurately reflects my personal performance of the history, physical exam, discussion and plan. documented in this [facility]St[facility] Work Phone: 1(240) 553-428212-19-2024 Instructions* Patient Instructions* Daisy Mane LPN - [...] Watchman discussed Follow up documented in this [facility]St. [facility] Work Phone: 1(679) 978-428712-17-2024 Evaluation note* Diagnosis Onset Date Resolution Status Admit Date Anxiety acuteDecember 2023 1:58pmCKD (chronic kidney disease) stage 4, GFR 15-29 ml/minacuteDecember 2023 1:58pmUGI bleedacuteDecember 2023 1:58pm Paroxysmal atrial fibrillationinactiveDecember 2023 1:58pmAcute on chronic diastolic (congestive) heart failureacuteJanuary 2024 10:36amCKD (chronic kidney disease) stage 4, GFR 15-29 ml/minacuteJanuary 2024 10:36am Cerebellar stroke, acuteacuteJanuary 2024 1:03pmCKD (chronic kidney disease) stage 4, GFR 15-29 ml/minacuteJanuary 2024 1:03pmHyperlipidemia acuteJanuary 2024 1:03pm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chronicJanuary 2024 1:03pmAtrial fibrillationresolvedNovuary 2024 1:03pmDiabetes mellitus type II, controlledresolvedJanuary 2024 1:03pmHTN (hypertension) resolvedJanuary 2024 1:03pmMultiple myeloma in remissionresolvedNovuary 2024 1:03pmUnsteady gaitresolvedNovuary 2024 1:03pmAnemiainactive Kimberly 2024 1:01svM18 deficiency anemiainactiveJanuary 2024 1:03pm DizzinessdeletedNovuary 2024 1:03pmHearing lossinactiveNovuary 2024 1:03pmMultiple myelomainactiveNovuary 2024 1:03pmSteroid-induced hyperglycemiainactiveJanuary 2024 1:03pmTransient left leg weakness inactiveNovuary 2024 1:03pmDouble visiondeletedJanuary 2024 1:03pm Left facial numbnessdeletedJanuary 2024 1:03pmShoulder paindeletedNovuary 2024 1:03pmWeaknessdeletedJanuary 2024 1:03pmAcute on chronic diastolic (congestive) heart failureacuteFebruary 2024 4:18pmCKD (chronic kidney disease) stage 4, GFR 15-29 ml/minacuteFebruary 2024 4:18pmDyspnea acuteFebruary 2024 4:18pmFluid retentionacuteFebruary 2024 4:18pmHeart failureacuteFebruary 2024 4:18pm [facility] Work Phone: 1(625) 640-297912-17-2024 Evaluation note* Diagnosis Onset Date Resolution Status Admit Date Anxiety acuteDecember 2023 1:58pmCKD (chronic kidney disease) stage 4, GFR 15-29 ml/minacuteDecember 2023 1:58pmUGI bleedacuteDecember 2023 1:58pm Paroxysmal atrial fibrillationinactiveDecember 2023 1:58pmAcute on chronic diastolic (congestive) heart failureacuteJanuary 2024 10:36amCKD (chronic kidney disease) stage 4, GFR 15-29 ml/minacuteJanuary 2024 10:36am Cerebellar stroke, acuteacuteJanuary 2024 1:03pmCKD (chronic kidney disease) stage 4, GFR 15-29 ml/minacuteJanuary 2024 1:03pmHyperlipidemia acuteJanuary 2024 1:03pm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chronicJanuary 2024 1:03pmAtrial fibrillationresolvedNovuary 2024 1:03pmDiabetes mellitus type II, controlledresolvedNovuary 2024 1:03pmHTN (hypertension) resolvedJanuary 2024 1:03pmMultiple myeloma in remissionresolvedNovuary 2024 1:03pmUnsteady gaitresolvedJanuary 2024 1:03pmAnemiainactive December 12, 2024 1:48kpL54 deficiency anemiainactiveNovuary 2024 1:03pm DizzinessdeletedJanuary 2024 1:03pmHearing lossinactiveNovuary 2024 1:03pmMultiple myelomainactiveJanuary 2024 1:03pmSteroid-induced hyperglycemiainactiveJanuary 2024 1:03pmTransient left leg weakness inactiveNovuary 2024 1:03pmDouble visiondeletedJanuary 2024 1:03pm Left facial numbnessdeletedJanuary 2024 1:03pmShoulder paindeletedJanuary 2024 1:03pmWeaknessdeletedJanuary 2024 1:03pmAcute on chronic diastolic (congestive) heart failureacuteFebruary 2024 4:18pmCKD (chronic kidney disease) stage 4, GFR 15-29 ml/minacuteFebruary 2024 4:18pmDyspnea acuteFebruary 2024 4:18pmFluid retentionacuteFebruary 2024 4:18pm Hypertensive chronic kidney disease with stage 1 through stage 4 chronic kiacute February 2024 4:18pmMultiple myelomaacuteFebruary 2024 4:18pmType 2 diabetes mellitus with chronic kidney diseaseacuteFebruary 2024 4:18pmHeart failuredeletedFebruary 2024 4:18pm [facility] Work Phone: 1(583) 801-258012-17-2024 Evaluation note* Diagnosis Onset Date Resolution Status Admit Date Anxiety acuteDecember 2023 1:58pmCKD (chronic kidney disease) stage 4, GFR 15-29 ml/minacuteDecember 2023 1:58pmUGI bleedacuteDecember 2023 1:58pm Paroxysmal atrial fibrillationinactiveDecember 2023 1:58pmAcute on chronic diastolic (congestive) heart failureacuteJanuary 2024 10:36amCKD (chronic kidney disease) stage 4, GFR 15-29 ml/minacuteJanuary 2024 10:36am Cerebellar stroke, acuteacuteJanuary 2024 1:03pmCKD (chronic kidney disease) stage 4, GFR 15-29 ml/minacuteJanuary 2024 1:03pmHyperlipidemia acuteJanuary 2024 1:03pm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chronicJanuary 2024 1:03pmAtrial fibrillationresolvedJanuary 2024 1:03pmDiabetes mellitus type II, controlledresolvedJanuary 2024 1:03pmHTN (hypertension) resolvedJanuary 2024 1:03pmMultiple myeloma in remissionresolvedJanuary 2024 1:03pmUnsteady gaitresolvedJanuary 2024 1:03pmAnemiainactive December 12, 2024 1:21niE25 deficiency anemiainactiveJanuary 2024 1:03pm DizzinessdeletedJanuary 2024 1:03pmHearing lossinactiveJanuary 2024 1:03pmMultiple myelomainactiveJanuary 2024 1:03pmSteroid-induced hyperglycemiainactiveJanuary 2024 1:03pmTransient left leg weakness inactiveNovuary 2024 1:03pmDouble visiondeletedNovuary 2024 1:03pm Left facial numbnessdeletedNovuary 2024 1:03pmShoulder paindeletedJanuary 2024 1:03pmWeaknessdeletedJanuary 2024 1:03pmAcute on chronic diastolic (congestive) heart failureacuteFebruary 2024 4:18pmCKD (chronic kidney disease) stage 4, GFR 15-29 ml/minacuteFebruary 2024 4:18pmDyspnea acuteFebruary 2024 4:18pmFluid retentionacuteFebruary 2024 4:18pm Hypertensive chronic kidney disease with stage 1 through stage 4 chronic kiacute February 2024 4:18pmMultiple myelomaacuteFebruary 2024 4:18pmType 2 diabetes mellitus with chronic kidney diseaseacuteFebruary 2024 4:18pmHeart failuredeletedFebruary 2024 4:18pmCKD (chronic kidney disease) stage 4, GFR 15-29 ml/minacuteFebruary 2024 2:26pmHypertensive chronic kidney disease with stage 1 through stage 4 chronic kiacuteFebruary 2024 2:26pmMultiple myelomaacuteFebruary 2024 2:26pmSecondary hyperparathyroidism of renal originacuteFebruary 2024 2:26pmType 2 diabetes mellitus with chronic kidney diseaseacuteFebruary 2024 2:26pmVitamin D deficiencyacuteFebruary 2024 2:26pm [facility] Work Phone: 1(381) 818-217412-17-2024 Evaluation note* Diagnosis Onset Date Resolution Status Admit Date Anxiety acuteDecember 2023 1:58pmCKD (chronic kidney disease) stage 4, GFR 15-29 ml/minacuteDecember 2023 1:58pmUGI bleedacuteDecember 2023 1:58pm Paroxysmal atrial fibrillationinactiveDecember 2023 1:58pmAcute on chronic diastolic (congestive) heart failureacuteJanuary 2024 10:36amCKD (chronic kidney disease) stage 4, GFR 15-29 ml/minacuteJanuary 2024 10:36am Cerebellar stroke, acuteacuteJanuary 2024 1:03pmCKD (chronic kidney disease) stage 4, GFR 15-29 ml/minacuteJanuary 2024 1:03pmHyperlipidemia acuteJanuary 2024 1:03pm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chronicJanuary 2024 1:03pmAtrial fibrillationresolvedJanuary 2024 1:03pmDiabetes mellitus type II, controlledresolvedJanuary 2024 1:03pmHTN (hypertension) resolvedJanuary 2024 1:03pmMultiple myeloma in remissionresolvedJanuary 2024 1:03pmUnsteady gaitresolvedJanuary 2024 1:03pmAnemiainactive December 12, 2024 1:69fnO51 deficiency anemiainactiveJanuary 2024 1:03pm DizzinessdeletedJanuary 2024 1:03pmHearing lossinactiveJanuary 2024 1:03pmMultiple myelomainactiveJanuary 2024 1:03pmSteroid-induced hyperglycemiainactiveJanuary 2024 1:03pmTransient left leg weakness inactiveJanuary 2024 1:03pmDouble visiondeletedJanuary 2024 1:03pm Left facial numbnessdeletedJanuary 2024 1:03pmShoulder paindeletedJanuary 2024 1:03pmWeaknessdeletedJanuary 2024 1:03pmAcute on chronic diastolic (congestive) heart failureacuteFebruary 2024 4:18pmCKD (chronic kidney disease) stage 4, GFR 15-29 ml/minacuteFebruary 2024 4:18pmDyspnea acuteFebruary 2024 4:18pmFluid retentionacuteFebruary 2024 4:18pm Hypertensive chronic kidney disease with stage 1 through stage 4 chronic kiacute February 2024 4:18pmMultiple myelomaacuteFebruary 2024 4:18pmType 2 diabetes mellitus with chronic kidney diseaseacuteFebruary 2024 4:18pmHeart failuredeletedFebruary 2024 4:18pmCKD (chronic kidney disease) stage 4, GFR 15-29 ml/minacuteFebruary 2024 2:26pmHyperlipidemiaacuteFebruary 2024 2:26pmHypertensive chronic kidney disease with stage 1 through stage 4 chronic kiacuteFebruary 2024 2:26pmMetabolic acidemiaacuteFebruary 2024 2:26pmMultiple myelomaacuteFebruary 2024 2:26pmSecondary hyperparathyroidism of renal originacuteFebruary 2024 2:26pmType 2 diabetes mellitus with chronic kidney diseaseacuteFebruary 2024 2:26pm Kidney stoneinactiveFebruary 2024 2:26pm [facility] Work Phone: 1(648) 457-151412-17-2024 Evaluation note* Diagnosis Onset Date Resolution Status Admit Date Anxiety inactiveOctober 30, 2024 1:58pmCKD (chronic kidney disease) stage 4, GFR 15- 29 ml/mininactiveDecember 2023 1:58pmParoxysmal atrial fibrillation inactiveDecember 2023 1:58pmUGI bleedinactiveDecember 2023 1:58pm Acute on chronic diastolic (congestive) heart failureresolvedJanuary 2024 10:36amCKD (chronic kidney disease) stage 4, GFR 15-29 ml/mininactiveJanuary 2024 10:36amAtrial fibrillationresolvedJanuary 2024 1:03pmDiabetes mellitus type II, controlledresolvedJanuary 2024 1:03pmHTN (hypertension) resolvedJanuary 2024 1:03pmMultiple myeloma in remissionresolvedJanuary 2024 1:03pmUnsteady gaitresolvedJanuary 2024 1:03pmAnemiainactive Kimberly 2024 1:23bcW98 deficiency anemiainactiveJanuary 2024 1:03pm Cerebellar stroke, acuteinactiveNovuary 2024 1:03pmCKD (chronic kidney disease) stage 4, GFR 15-29 ml/mininactiveJanuary 2024 1:03pmDizziness deletedJanuary 2024 1:03pmHearing lossinactiveNovuary 2024 1:03pm HyperlipidemiainactiveJanuary 2024 1:03pm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inactiveJanuary 2024 1:03pmMultiple myelomainactiveJanuary 2024 1:03pmSteroid-induced hyperglycemiainactiveJanuary 2024 1:03pmTransient left leg weaknessinactiveJanuary 2024 1:03pmDouble visiondeletedJanuary 2024 1:03pmLeft facial numbnessdeletedJanuary 2024 1:03pmShoulder paindeletedJanuary 2024 1:03pmWeaknessdeletedJanuary 2024 1:03pm Acute on chronic diastolic (congestive) heart failureresolvedFebruary 2024 4:18pmDyspnearesolvedFebruary 2024 4:18pmFluid retentionresolvedFebruary 2024 4:18pmCKD (chronic kidney disease) stage 4, GFR 15-29 ml/mininactive December 19, 2024 4:18pmHypertensive chronic kidney disease with stage 1 through stage 4 chronic kiinactiveFebruary 2024 4:18pmMultiple myeloma inactiveFebruary 2024 4:18pmType 2 diabetes mellitus with chronic kidney diseaseinactiveFebruary 2024 4:18pmHeart failuredeletedFebruary 2024 4:18pmSecondary hyperparathyroidism of renal originacuteFebruary 2024 2:26pmCKD (chronic kidney disease) stage 4, GFR 15-29 ml/mininactiveFebruary 2024 2:26pmHyperlipidemiainactiveFebruary 2024 2:26pmHypertensive chronic kidney disease with stage 1 through stage 4 chronic kiinactiveFebruary 2024 2:26pmKidney stoneinactiveFebruary 2024 2:26pmMetabolic acidemiainactiveFebruary 2024 2:26pmMultiple myelomainactiveFebruary 2024 2:26pmType 2 diabetes mellitus with chronic kidney diseaseinactiveFebruary 2024 2:26pmAcute on chronic diastolic (congestive) heart failureresolved December 26, 2024 10:49amCKD (chronic kidney disease) stage 4, GFR 15-29 ml/mininactiveFebruary 2024 10:49am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February 2024 10:49am [facility] Work Phone: 1([phone]) 658-410612-10-2024 Miscellaneous Notes* Telephone Encounter - Shilpa Martinez CMA - 10/23/2024 11:43 AM EST ----- Message from Dr. Flako Huggins DO sent at 10/22/2024 12:42 PM EST ----- Please let patient know she had mild chronic gastritis and a small fundic gland polyp which was benign. Recommend she take Prilosec ujhq-wjj-jlnjsvl if not already on that or something similar. ThanksDr. Gómez * Telephone Encounter - Shilpa Martinez CMA - 10/23/2024 11:43 AM EST Spoke with patient regarding pathology results. Patient verbally understood with no further questions. Informed patient of Dr. Huggins's recommendations. [facility]24 Telephone encounter Note* Telephone Encounter - Shilpa Martinez CMA - 10/23/2024 11:43 AM EST ----- Message from Dr. Flako Huggins DO sent at 10/22/2024 12:42 PM EST ----- Please let patient know she had mild chronic gastritis and a small fundic gland polyp which was benign. Recommend she take Prilosec lczf-rif-cnlloka if not already on that or something similar. Thanks, Dr. Gómez [facility]5minutes12-10-2024 Telephone encounter Note* Telephone Encounter - Shilpa Martinez CMA - 10/23/2024 11:43 AM EST Spoke with patient regarding pathology results. Patient verbally understood with no further questions. Informed patient of Dr. Huggins's recommendations. [facility] CenterZia Beverage Co.[id number] Consult note Author Cristiano Diaz [facility] September 18, 2024 1:50pmNote Date/TimeNov2023 11:34a[place] [address] Physiatry (Rehab) Consult Note Signed Patient: Hailee Trivedi MR#: [id number] : 1940 Acct:[id number] Age/Sex: 84 / F Adm Date: 4 Loc: Room: [address] [place] [address] Type: ADM INO Attending Dr: Trent Patterson MD Copies to: [...] well. She had also recently been to [facility] and was diagnosed with a UTI. Workup in the ED demonstrated some chronic findings, but otherwise was mostly noncontributory. the patient was admitted for observationdue to weakness/debility. I met with the patient [...] negative unless noted below or in HPI [facility] Medical History Multiple myeloma Type [...] subcut BID 07/05/24 [History Confirmed 09/17/24] omega 6-gfq-njz-fish oil 1,000 mg (120 mg-180 mg) capsule (Fish Oil) 1 cap PO Q48HR 07/05/24 [History Confirmed 09/17/24] sodium citrate-citric acid 490 mg-640 mg/5 mL oral solution (Oracit) 10 ml PO QHS PRN Kidney lgxmfu53/22/24 [History Confirmed 09/17/24] amlodipine 5 mg tablet [...] % (Auto) 87.9 Lymph % (Auto) 4.8 [place] % (Auto) 4.9 Eos % (Auto) 2.1 Baso % (Auto) 0.3 Nucleat RBC Rel Count 0.0 Neut # (Auto) 10.6 H Lymph # (Auto) 0.6 L [place] # (Auto) 0.6 Eos # (Auto) 0.3 [...] Appearance Clear Urine pH 5.5 Ur Specific [place] 1.023 Urine Protein 50 H Urine Glucose [...] MPV Neut % (Auto) Lymph % (Auto) [place] % (Auto) Eos % (Auto) Baso % (Auto) Nucleat RBC Rel Count Neut # (Auto) Lymph # (Auto) [place] # (Auto) Eos # (Auto) Baso # [...] Color Urine Appearance Urine pH Ur Specific [place] Urine Protein Urine Glucose (UA) Urine Ketones [...] % (Auto) 81.6 Lymph % (Auto) 6.6 [place] % (Auto) 8.7 Eos % (Auto) 2.3 Baso % (Auto) 0.8 Nucleat RBC Rel Count 0.0 Neut # (Auto) 8.0 H Lymph # (Auto) 0.7 L [place] # (Auto) 0.9 H Eos # (Auto) [...] Color Urine Appearance Urine pH Ur Specific [place] Urine Protein Urine Glucose (UA) Urine Ketones Urine Occult Blood Urine Nitrite Urine Bilirubin Urine Urobilinogen Ur Leukocyte Esterase Urine RBC Urine WBC Urine WBC Clumps Ur Squamous Epith Cells Urine Bacteria Hyaline Casts Urine Mucus Assessment/Plan (1) Weakness: (2) Diabetic neuropathy: Qualifiers: Diabetes mellitus type: type 2 Diabetes mellitus complication detail: diabetic autonomic neuropathyQualified Code(s): E11.43 - Type 2 diabetes mellitus [...] not appropriate for home at this time. Iwould recommend discharge to a long term facility for continued therapy services. -Continue early mobility and OOB therapy. -Thank you for the consult. Patient was personally seen by me, Dr. Diaz, on the day of encounter, reviewed the history and the relevant portions of the chart, including current orders, allied health and agriculture consultant notes, labs/imaging and performed chahal elements of exam and I formulated the plan of care and facilitated the medical decision making. I completed a substantive portion of this encounter, the medical decision making portion of this note in its entirety, including Allied health note review, nursing note review, agriculture consultant note review, discussion with nursing and case management, and more than 50% of my time was spent on counseling and coordination of care, time spent 65 minutes Documented By: Cristiano Diaz MD [id number] Signed By: <Electronically signed by Cristiano Diaz MD> 09/18/24 1357 [facility] Work Phone: 1(308) 497-835511-05-2024 Progress note Author Trent Patterson [facility] September 18, 2024 1:48pmNote Date/TimeNov2023 1:41pm[place] [address] Hospitalist Progress Note Signed Patient: Hailee Trivedi MR#: [id number] : 1940 Acct:[id number] Age/Sex: 84 / F Adm Date: 4 Loc: Room: [address] [place] [address] Type: ADM INOo Attending Dr: Trent Patterson [...] of care and confirmed it with the re sident/student/OFFICE ANALYST. This patient presented to the emergency department complaining of fatigue, diarrhea, lower abdominal pain. She states that she recovered from COVID about 2 weeks ago. This past Tuesday she presented herself to [place] and was diagnosed with a UTI and dehydration and was given IV fluids and antibiotics. She states that she had some diarrhea over the last couple of days but states that she has not had a bowel movement since arriving at the hospital last night. Laboratory evaluation demonstrates acreatinine of 2.58 with a history of CKD stage IV which is at her baseline. Troponins are very mildly elevated to 21.2 which is non- significant at this time. Notably her BNP is [...] SUBCUT 09/18/25 07:59 Not Given TID.WM.HS [facility] Protocol Insulin Human NPH 15 units 09/18/24 09:00 09/18/24 08:45 Insulin Nph Human Isophane 300 Units/3 Ml Insuln.Pen SUBCUT 09/18/25 08:59 15 units BID [facility] Administration Rivaroxaban 15 mg 09/18/24 17:00 Rivaroxaban 15 Mg Tablet PO 09/18/25 16:59 DAILY.WITH.SUPPER [facility] Sodium Bicarbonate 1,300 mg 09/18/24 14:00 Sodium Bicarbonate 650 Mg Tablet PO 09/18/25 13:59 QID KARISSA Sodium Chloride 0 ml 09/17/24 20:42 09/18/24 02:47 Sodium Chloride 0.9 % 10 Ml Syringe IV-PUSH 09/17/25 20:41 10 ml PRN PRN Administration Flush Sodium Chloride 0 ml 09/18/24 06:00 09/18/24 06:14 Sodium Chloride 0.9 % 10 Ml Syringe IV-PUSH 09/18/25 05:59 Not Given QSHIFT KARISSA A&P - Hospitalist Assessment/Plan (1) Chest pain: (2) CKD (chronic kidney disease) stage 4, GFR 15-29 ml/min: (3) Weakness: Plan . Documented By: Trent Patterson MD 09/18/24 1334 Signed By: <Electronically signed by Trent Patterson MD> 09/18/24 1348 <Electronically signed by DO MARK Everett> 09/18/24 1342 [facility] Work Phone: 1(178) 180-884511-05-2024 History and physical note Author Pool Buck [facility] September 18, 2024 5:23amNote Date/TimeNov2023 1:33[place] [address] Hospitalist H&P Signed Patient: Hailee Trivedi MR#: [id number] : 1940 Acct:[id number] Age/Sex: 84 / F Adm Date: 4 Loc: Room: [address] [place] [address] Type: ADM INOo Attending Dr: Pool Buck MD Copies to: MD Curt Boogie MD Paula G Smith, FACILITY MAINTENANCE WORKER~ HPI DATE OF EXAMINATION: 09/18/24 CHIEF COMPLAINT: [...] taken Pepto-Bismol so that is why she thinksher stools are black. She reports going to [facility] emergency room Tuesday and they [...] 30.4. ABG with a pH of 7.34, mbmcur02.9. CMP with a serum bicarb of 17.5, BUN 41, creatinine 2.66, glucose 141, calcium 7.7, albumin 2.7, total protein 5.1. Magnesium 1.6. Total CPK 25, troponin 9.3, BNP 660. UA with clear, yellow urine with 50 protein, occasional white blood cell clumps, no bacteria seen. EKG shows A-fib. Patient developed chest pain while inthe emergency room, was medicated with 1 sublingual nitro which lowered her blood pressure and relieve the chest pain. She also received 40 mg of Mag-Ox. She will be admitted as observation to the [facility] floor Review of Systems Review of Systems Review of systems: A 10 point review of systems was obtained, negative unless noted in the HPI or below. [facility] Medical History Multiple myeloma Type [...] subcut BID 07/05/24 [History Confirmed 09/17/24] omega 5-bfn-ifg-fish oil 1,000 mg (120 mg-180 mg) capsule (Fish Oil) 1 cap PO Q48HR 07/05/24 [History Confirmed 09/17/24] sodium citrate-citric acid 490 mg-640 mg/5 mL oral solution (Oracit) 10 ml PO QHS PRN Kidney /22/24 [History Confirmed 09/17/24] amlodipine 5 mg tablet [...] % (Auto) 4.8 % (.) 09/17/24 21:16 [place] % (Auto) 4.9 % (.) 09/17/24 21:16 Eos % (Auto) 2.1 % (.) 09/17/24 21:16 Baso % (Auto) 0.3 % (.) 09/17/24 21:16 Nucleat RBC Rel Count 0.0 /100 WBC (0-0.5) 09/17/24 21:16 Neut # (Auto) 10.6 x10E3/uL (1.8-7.7) H 09/17/24 21:16 Lymph # (Auto) 0.6 x10E3/uL (1.00-4.8) L 09/17/24 21:16 [place] # (Auto) 0.6 x10E3/uL (0.0-0.8) 09/17/24 21:16 [...] pH 5.5 (5.0-9.0) 09/17/24 21:56 Ur Specific [place] 1.023 (1.001-1.030) 09/17/24 21:56 Urine Protein 50 mg/dL (Negative) H 09/17/24 21:56 Urine Glucose (UA) Normal mg/dL (Normal) 09/17/24 21:56 Urine Ketones Negative (Negative) 09/17/24 21:56 Urine Occult Blood Negative (Negative) 09/17/24 21:56 Urine Nitrite Negative (Negative) 11/04/24 21:56 Urine Bilirubin Negative (Negative) 09/17/24 21:56 [...] encounter. I reviewed her history and performed keyelements of exam and formulated the plan of care and confirmed the nurse practitioners note above. Plan of care reflects my direct input. Suspect patient has residual weakness and symptoms related toCOVID infection 2 weeks prior. Monitor closely and [...] 0154 <Electronically signed by Pool Buck MD> 09/18/24522 [facility] Work Phone: 1(163) 907-347711-05-2024 Evaluation note* Diagnosis Onset Date Resolution Status Admit Date CKD (chronic kidney disease) stage 4, GF R 15-29 ml[facility] 12:41amAtrial fibrillationresGe[facility] 2023 12:41amChest painresGeisinger-Shamokin Area Community Hospital 2023 12:41amDiabetes mellitus type II, controlledresGeisinger-[facility]am[facility] 2023 12:41amDiabetic neuropathyresGeisinger-[facility] 2023 12:41amDyspnearesGeisinger-Shamokin Area Community Hospital 2023 12:41amHTN (hypertension) [facility] 2023 12:41amHyperlipidemiaresGeisinger-Shamokin Area [facility] 2023 12:41amHypomagnesemiaresGeisinger-Shamokin Area Community Hospital 2023 12:41amImpaired mobility and activities of daily livingresGeisinger-Shamokin Area Community Hospital 2023 12:41amMultiple myeloma in remissionresGeisinger-Shamokin Area Community Hospital 2023 12:41amWeaknessresGeisinger-Shamokin Area [facility] Hospital 2023 12:41amAnxietyacuteDeceer 2023 1:58pmCKD (chronic kidney disease) stage 4, GFR 15-29 ml/minacuteDeceabrazo central campus 2023 1:58pmUGI bleedacuteDeceer 2023 1:58pmParoxysmal atrial fibrillationinactiveDeceer 2023 1:58pm [facility] Work Phone: 1(176) 598-168306-04-2024 History of Present illness Narrative* Elicia Rhodes [...] recurrence. She did have noninvasive assessment at [facility], which was negative. Couple of years [...] other systems reviewed and are negative. Vitals: 06/04/24 1355 BP: 128/66 BP Location: Left arm [...] once daily.,Disp: , Rfl: fish oil concentrate (Fresno-3) 120-180 mg capsule, Take 1 capsule (1 [...] recurrence. She did have noninvasive assessment at [facility], which was negative. Couple of years [...] once daily.,Disp: , Rfl: fish oil concentrate (Fres[place]-3) 120-180 mg capsule, Take 1 capsule (1 [...] exam, discussion and plan. documented in this encounterSt. [facility] Work Phone: 1([phone]) 119-965506-04-2024 Instructions* Patient Instructions* Daisy Mane LPN - [...] through Care Everywhere. * Diet and health (Brazilian) documented in this encounterSt. [facility] Work Phone: 1([phone]) 234-851102-26-2024 Hospital Discharge instructions Follow Up Care 01/09/2024 09:43:11 With:XAVIER VELAZQUEZ, Tyree Rivers, URL Address: [facility] [address] [place] [address]- [phone] When: Unknown [facility] 01-18-2024 Evaluation note* Encounter Date Diagnosis Assessment Notes Treatment Notes Treatment Clinical Notes Nov, Benign essential HTN (ICD-10 - I 10) Blood pressure remains well controlled at this time. Denies cardiac symptoms. Shows no signs or symptoms or poor control. Patient to continue with above medication and we will continue to monitor. Advised to pay attention to body and symptoms. Any developing patterns. Stay well hydrated. Nov,Stage 4 chronic kidney disease (ICD-10 - N18.4)Let her hydrostatic tester know that she is having trouble affording the oracit. Will see him as scheduled on 12/05. 18 Duarte, 2024Other viral warts (ICD-10 - B07.8)Two areas - L anterior neck and superior to R eyebrow treated w cyrofreeze. Had treated neck in thepast. Pt tolerated well. magnify360 Other 12-04-2023 Evaluation note* Encounter Date Diagnosis Assessment Notes Treatment Notes Treatment Clinical Notes Oct, Type 2 diabetes mellitus with hy perglycemia (ICD-10 - E11.65) magnify360 Other 11-30-2023 Evaluation note* Encounter Date Diagnosis Assessment Notes Treatment Notes Treatment Clinical Notes Sep, Type 2 diabetes mellitus with hy perglycemia (ICD-10 - E11.65) magnify360 Other 11-21-2023 History of Present illness Narrative* [...] recurrence. She did have noninvasive assessment at [facility], which was negative. Couple of years [...] once daily.,Disp: , Rfl: fish oil concentrate (Fresno-3) 120-180 mg capsule, Take 1 capsule (1 [...] chronic kidney disease (CMS/HCC) documented in this encounterSt. [facility] Work Phone: 1(508) 599-388111-21-2023 Instructions* Patient Instructions* Daisy Mane LPN - [...] Follow up 6 months documented in this encounterSt. [facility] of [facility] Work Phone: 1([phone]) 658-726511-13-2023 Evaluation note* Encounter Date Diagnosis Assessment Notes Treatment Notes Treatment Clinical Notes Sep, Bronchitis (ICD-10 - J40) Discussed diagnosis with patient. Finish entire course of antibiotic. Tessalon Pearles ordered to take as needed for cough. Increase fluids and rest. Mlgt-dmd-eirvqka antipyretics as needed. Warning signs and symptoms reviewed with patient today. Patient to go immediately to the ER should she experience any of these. Patient to notify office should her symptoms persist and not improve. Patient verbalizes understanding and agrees to treatment plan. [email or web address] Other 10-31-2023 Evaluation note* Encounter Date Diagnosis Assessment Notes Treatment Notes Treatment Clinical Notes Aug, Lumbar pain (ICD-10 - M54.50) Hx of falls - will check lumbar XR to r/o fracture Aug,Left flank pain (ICD-10 - R10.9)r/o nephrolith Aug,ronchitis (ICD-10 - J40)Finish antibiotics. Take prednisone. Understands it will increase her glucose. magnify360 Other 10-18-2023 Evaluation note* Encounter Date Diagnosis Assessment Notes Treatment Notes Treatment Clinical Notes Aug, Acute pain of left knee (ICD-10 - M25.562) Aug,OtherPatient's not having any pain today. At this point she can call me in the future if she needs me [email or web address] Other 08-11-2023 Evaluation note* Encounter Date Diagnosis Assessment Notes Treatment Notes Treatment Clinical Notes Jun, UTI symptoms (ICD-10 - R39.9) Will treat empirically as she is unable to provide a sample today. Jun,Weakness (ICD-10 - R53.1)Agrees to for PT and possible help with medications. 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 Continue Oracit for for kidney stones prevention.I have advised her to adequately hydrate herself. 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 with proteinuria less than 1 g. Her renal US showed B/L simple renal cyst. I have d/wher the importance of good DM and HTN control to slow down the progression of CKD Jun,Hypertensive chronic kidney disease with stage 1 through stage 4 chronic kidney disease, or unspecified chronic kidney disease (ICD-10 - I12.9) Blood pressure is usually well controlled on current regimen. I have advised her to monitor blood pressure at home and if it stays above 140/90 mmHg then call office. 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 Continue [facility] for diabetes mellitus management.She is not on MARK or ARB due to the advanced CKD. Jun,Secondary hyperparathyroidism of renal origin (ICD-10 - N25.81)PTH is at goal. I have advised her to take low phosphorus diet Jun,Vitamin D deficiency (ICD-10 - E55.9)Vit D is within the goal. I will continue the current treatment. Jun,Microscopic hematuria (ICD-10 - R31.29)She has microscopic hematuria likely due to Nephrolithiasis. She follows with Urologist Dr. Lou. She has hypocirturia and Currently takes Oracit Jun,Multiple myeloma (ICD-10 - C90.00)Follows with Oncology Jun,Metabolic acidemia, unspecified (ICD-10 - P19.9)She has a metabolic acidosis due to the CKD. Continue oral sodium bicarbonate. magnify360 Other 06-13-2023 Evaluation note* Encounter Date Diagnosis Assessment Notes Treatment Notes Treatment Clinical Notes Apr, Vasovagal syncope (ICD-10 - R55) Nearly passed out in office, BP down to 90/58. Staff helped her to friends car. Report called to Dr. Agudelo at [facility] ER. Likely due to taking bp med again, when her furnace packer has d/c it. Pt sent to ER. Apr,Weakness (ICD-10 - R53.1)Pt agrees to HH and PT. Also could use help from for walk in shower and local services for seniors. Apr,cute pain of left knee (ICD-10 - M25.562)tramadol, PT, and HH Apr,OtherPt states tylenol is not helpful and requests another pain med. She agrees to HH and PT magnify360 Other 05-03-2023 NotePROCEDURE: XR KNEE LT 1_2 [...] Electronically authenticated by: WILD SOLO Date: 2023-03-16 09:18[facility]05-02-2023 Evaluation note* Encounter Date Diagnosis Assessment Notes Treatment Notes Treatment Clinical Notes March, Left lateral knee pain (ICD-10 - M25.562) Discussed possible PT. Has improved overall with rest and stretching. Will start with Xray. Recommended tylenol products. March,Hypertension (ICD-10 - I10)chronic. stable - controlled on present meds magnify360 Other 02-28-2023 Progress note Author Misti Connolly [facility] January 11, 2023 11:19amNote Date/TimeFebruary 2022 10:42[facility] at [address] [address] Hem/Onc Follow Up Note - OP Signed Patient: Hailee Trivedi MR#: [id number] : 1940 Acct:[id number] Age/Sex: 82 / F Type: REG RCR [...] normal. Switched to oral Vit B12 in 04/2019.Repeat B12 level in 07/2019 was 900 and 506 in 11/02. -- Continue oral vitamin B12 at 1000mcg daily. L leg weakness New since end of March 2022- this is being managed by her neurologist. Head CT done March 2022 at [facility] without new/acute findings. 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 Nasalmucosa was non-erythematous. Mucous membranes were moist. NECK: [...] for coordination of care (as documented) and rxng-fz-dxey counseling of patient and/or family. [facility] - Medical History Medical History: [...] 01/19/22 09:00 KB (Rec: 01/19/22 09:01 KB [id number]) Distress Screening Distress screening follow up: Will follow with patient for any needs at next visit. Anxious about making next appointment time. - Lab Results Diagram of Most Recent CBC and CMP 01/04/23 14:45 01/04/23 14:45 Labs - Last 7 Days 01/04/23 14:45: Free Luckey LC, Quant 26.9 H, Free Lambda LC, Quant 12.0, Free Luckey/Lambda Ratio 2.24 H 01/04/23 14:45: PHA Creatinine Clear 19.82, Sodium 137, Potassium 4.3, Chloride 108, Carbon Pxebcwl94.9 L, Anion Gap 11.4, BUN 33 H, [...] % (Auto) 54.8, Lymph % (Auto) 34.1, [place] % (Auto) 8.0, Eos % (Auto) 2.3, Baso % (Auto) 0.8, Nucleat RBC Rel Count 0.0, Neut # (Auto) 4.9, Lymph # (Auto) 3.0, [place] # (Auto) 0.7, Eos # (Auto) 0.2, [...] solution (Oracit) 10 ml PO QID 06/16/21 [HistoryConfirmed 01/11/23] Dictated By: Misti Connolly APRN DD/ [id number] Signed By: <Electronically signed by RAMAKRISHNA Chappell Malka Elizondogretta> 01/11/23 1119 [facility] Work Phone: 1(797) 111-569202-27-2023 Hospital Discharge instructions Patient Education 01/10/2023 08:23:12 [...] include: ?Spinach. ?Rhubarb. ?Beets. ?Potato chips and slovak fries. ?Nuts. If you regularly take a diuretic medicine, make sure to eat at least 1 2 fruits or vegetables high in potassium each day. These include: ?Avocado. ?Banana. ?[place], prune, carrot, or tomato juice. ?Baked potato. [...] Casseroles. Pizza. Lasagna. Frozen meals. Potato chips. Rwandan fries. Summary You can reduce your risk [...] 02/25/2012 Document Revised: 02/20/2020 Document Reviewed: 10/11/2017 [employer] Patient Education 2020 [email or web address]. Follow Up Care 03/08/2022 11:44:08 With:XAVIER VELAZQUEZ, Tyree Rivers, URL Address: [facility] [address], [place] [address]- When: Unknown [facility] 02-08-2023 Evaluation note* Encounter Date Diagnosis Assessment Notes Treatment Notes Treatment Clinical Notes Dec, Nephrolithiasis (ICD-10 - N20.0) Her 24 hr urine stone studies showed Hypocitruria. Continue Oracit for for kidney stones prevention.I have advised her to adequately hydrate herself. 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 with proteinuria less than 1 g. Her renal US showed B/L simple renal cyst. I have d/wher the importance of good DM and HTN control to slow down the progression of CKD Dec,Hypertensive chronic kidney disease with stage 1 through stage 4 chronic kidney disease, or unspecified chronic kidney disease (ICD-10 - I12.9) Blood pressure is usually well controlled on current regimen. Continue current medications. I have advised her to monitor blood pressure at home and if it stays above 140/90 mmHg then call office. 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 Continue follow-up [facility]CP for diabetes mellitus management.She is not on MARK or ARB due to the advanced CKD. Dec,Secondary hyperparathyroidism of renal origin (ICD-10 - N25.81)PTH is at goal. I have advised her to take low phosphorus diet Dec,Vitamin D deficiency (ICD-10 - E55.9)Vit D is within the goal. I will continue the current treatment. Dec,Microscopic hematuria (ICD-10 - R31.29)She has microscopic hematuria likely due to Nephrolithiasis. She follows with Urologist Dr. Lou. She has hypocirturia and Currently takes Oracit Dec,Multiple myeloma (ICD-10 - C90.00)Follows with Oncology Dec,Metabolic acidemia, unspecified (ICD-10 - P19.9)She has a metabolic acidosis due to the CKD. Continue oral sodium bicarbonate. magnify360 Other 01-26-2023 Evaluation note* Encounter Date Diagnosis Assessment Notes Treatment Notes Treatment Clinical Notes Nov, Paroxysmal atrial fibrillation ( ICD-10 - I48.0) Patient understands to restart all of her medicines and take them as prescribed Will notify her furnace packer of this situation. Nov,Wart of face (ICD-10 - B07.9)Small wart on her face was treated with cryo freeze without issue pt tolerated procedure well Nov,KD (chronic kidney disease), stage IV (ICD-10 - N18.4)Discussed follow-up appointment with Dr. Jane Nov,Multiple myeloma (ICD-10 - C90.00)Stable on present appointments and treatment magnify360 Other 10-04-2022 Progress note Author Claire Choi [facility] August 17, 2022 1:48pmNote Date/TimeSept2021 4:57pmWoman'[facility] [place] [address] Hem/Onc Follow Up Note - OP Signed with Addenda Patient: Hailee Trivedi MR#: [id number] : 1940 Acct:[id number] Age/Sex: 82 / F Type: REG RCR [...] normal. Switched to oral Vit B12 in 04/2019.Repeat B12 level in 07/2019 was 900 and 506 in 11/02. -- Continue oral vitamin B12 at 1000mcg daily. L leg weakness New since end of March 2022- this is being managed by her neurologist. Head CT done March 2022 at [facility] without new/acute findings. May suggest brain MRI if no other etiologies identified - History of Present Illness Chief Complaint: Patient is here for a 3 month follow up with outside labs for review. States she has had ongoing lower back pain for the last month or so. Patient scheduled for Cycle 55 Daratumumab today. 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 Nasalmucosa was non-erythematous. Mucous membranes were moist. Oral [...] for coordination of care (as documented) and bxlh-si-wucj counseling of patient and/or family. [facility] - Medical History Medical History: [...] 01/19/22 09:00 KB (Rec: 01/19/22 09:01 KB [id number]) Distress Screening Distress screening follow up: Will [...] solution (Oracit) 10 ml PO QID 06/16/21 [HistoryConfirmed 07/13/22] Dictated By: Claire Choi II, DO DD/ 55 Signed By: <Electronically signed by Claire Choi II, DO> 08/03/221658 [facility] Work Phone: 1(102) 699-982309-20-2022 Progress note Author Claire Choi [facility] August 03, 2022 5:01pmNote Date/TimeSept2021 5:00pmW[facility] at [address] [address] Hem/Onc Follow Up Note - OP Signed Patient: Hailee Trivedi MR#: [id number] : 1940 Acct:[id number] Age/Sex: 82 / F Type: REG RCR [...] normal. Switched to oral Vit B12 in 04/2019.Repeat B12 level in 07/2019 was 900 and 506 in 11/02. -- Continue oral vitamin B12 at 1000mcg daily. L leg weakness New since end of March 2022- this is being managed by her neurologist. Head CT done March 2022 at [facility] without new/acute findings. May suggest brain MRI if no other etiologies identified - History of Present Illness Chief Complaint: Patient is here for a 3 month follow up with outside labs for review. States she has had ongoing lower back pain for the last month or so. Patient scheduled for Cycle 55 Daratumumab today. 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 Nasalmucosa was non-erythematous. Mucous membranes were moist. Oral [...] for coordination of care (as documented) and inhr-rp-llpk counseling of patient and/or family. [facility] - Medical History Medical History: [...] 01/19/22 09:00 KB (Rec: 01/19/22 09:01 KB [id number]) Distress Screening Distress screening follow up: Will [...] mg PO DAILY 30 days #30 tabs 12/25/19 [Rx Confirmed 07/13/22] cyclobenzaprine 10 mg tablet 10 mg PO TID PRN Pain #15 tabs 11/04/20 [Rx Confirmed 07/13/22] sodium citrate-citric acid 490 mg-640 mg/5 mL oral solution (Oracit) 10 ml PO QID 06/16/21 [HistoryConfirmed 07/13/22] Dictated By: Claire Choi II, DO DD/ 1700 Signed By: <Electronically signed by Claire Choi II, DO> 08/03/22 1701 [facility] Work Phone: 1(790) 397-242108-24-2022 Evaluation note* Encounter Date Diagnosis Assessment Notes Treatment Notes Treatment Clinical Notes Jun, Nephrolithiasis (ICD-10 - N20.0) Her 24 hr urine stone studies showed Hypocitruria. She did not tolerate Potassium Citrate due to hyperkalemia. Continue Oracit for for kidney stones prophylaxis.I have advised her to adequately hydrate herself. 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 with proteinuria less than 1 g. Her renal US showed B/L simple renal cyst. I have d/wher the importance of good DM and HTN control to slow down the progression of CKD Jun,Hypertensive chronic kidney disease with stage 1 through stage 4 chronic kidney disease, or unspecified chronic kidney disease (ICD-10 - I12.9) Blood pressure is usually well controlled on current regimen. Continue current medications. I have advised her to monitor blood pressure at home and if it stays above 140/90 mmHg then call office. 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 Continue follow-up [facility] for diabetes mellitus management.She is not on MARK or ARB due to the advanced CKD. Jun,econdary hyperparathyroidism of renal origin (ICD-10 - N25.81)PTH is at goal. I have advised her to take low phosphorus diet Jun,Metabolic acidosis (ICD-10 - E87.2)She has a metabolic acidosis due to the CKD. Continue oral sodium bicarbonate. Jun,Vitamin D deficiency (ICD-10 - E55.9)Vit D is within the goal. I will continue the current treatment. Jun,Microscopic hematuria (ICD-10 - R31.29)She has microscopic hematuria likely due to Nephrolithiasis. She follows with Urologist Dr. Lou. She has hypocirturia but cannot tolerate Potassium Citrate due to hyperkalemia Jun,Multiple myeloma (ICD-10 - C90.00)Follows with Oncology magnify360 Other 07-08-2022 History general Narrative - Reported* Type Description Date Medical History DM II Medical HistoryCVA OF CEREBELLUMMedical HistoryCOVID [id number] History HypertensionMedical HistoryKidney stonesMedical HistoryMultiple myelomaMedical HistoryHistory of kidney stonesMedical HistoryHyperlipemiaMedical HistoryStage 4 chronic kidney diseaseMedical HistoryAnemia in CKD (chronic kidney disease) Medical HistoryNephrolithiasisMedical HistoryAsymptomatic proteinuriaMedical HistorySecondary hyperparathyroidismMedical HistoryA-FIBSurgical History cholecystectomySurgical Historytotal icerqaqespji9483Rmgzczbd History hemorrhoidectomySurgical HistoryCHEMO/2015Surgical Historylithotripsey03/09/18 Surgical UbuvqdsVcsimyiwblbt5-59-3573Bfbvymdd Historyleft kidney awlmf5-31-26 Surgical HistoryLITHOTRIPSEY01/24/2020Surgical HistorySTENT REMOVAL03/03/2021 Surgical HistoryKIDNEY STONES X 3 WITH LASER02/19/2021Hospitalization HistorySEE ABOVE SURGERYHospitalization History[facility]HY[facility]/HSEY20-6592Bflpkloxcmsnota RaehucmHRFYG61/2021 magnify360 Other 07-08-2022 History general Narrative - Reported* Type Description Date Medical History DM II Medical HistoryCVA OF CEREBELLUMMedical HistoryCOVID [id number] History HypertensionMedical HistoryKidney stonesMedical HistoryMultiple myelomaMedical HistoryHistory of kidney stonesMedical HistoryHyperlipemiaMedical HistoryStage 4 chronic kidney diseaseMedical HistoryAnemia in CKD (chronic kidney disease) Medical HistoryNephrolithiasisMedical HistoryAsymptomatic proteinuriaMedical HistorySecondary hyperparathyroidismMedical HistoryA-FIBMedical HistoryVERTIGO PER [facility] 06/19/2023Surgical HistorycholecystectomySurgical History total uwcecqrrteqa9965Zydrzhsg HistoryhemorrhoidectomySurgical HistoryCHEMO 06/2016Surgical Historylithotripsey03/09/18urgical TjqsbrgKbemelyjpwfv8-04-1228 Surgical Historyleft kidney -84-84Ewokzofy HistoryLITHOTRIPSEY01/24/2020 Surgical HistorySTENT REMOVAL03/03/2021urgical HistoryKIDNEY STONES X 3 WITH LASER02/19/2021Hospitalization HistorySEE ABOVE SURGERYHospitalization History [facility] [place]/[id number] PwwusmpWTNJP10/2021 magnify360 Other 05-31-2022 Progress note Author [facility] April 13, 2022 11:35amNote Date/TimeMay 2021 9:33[facility] [place] [address] Hem/Onc Follow Up Note - OP Signed Patient: Hailee Trivedi MR#: [id number] : 1940 Acct:[id number] Age/Sex: 81 / F Type: REG RCR [...] normal. Switched to oral Vit B12 in 04/2019.Repeat B12 level in 07/2019 was 900 and 506 in 11/02. -- Continue oral vitamin B12 at 1000mcg daily. L leg weakness New since end of March 2022- this is being managed by her neurologist. Head CT done March 2022 at [facility] without new/acute findings. May suggest brain MRI if no other etiologies identified Follow Up Instructions: Irma today and continue every 6 weeks myeloma labs on irma days here cbc, cmp at [facility] prior to treatment follow-up with Dr. Quiroga in 3mo - History of Present Illness Chief Complaint: Patient is here today for 2 month follow up visit for multiple myeloma. HPI: Hailee is a pleasant lady with Luckey light chain multiple myeloma diagnosed by Dr. Motley in 2014by free light chain assay showing 7000 mg [...] been trying to transfer her care to [facility] but they are not up [...] x 1 week, sees neurology (followed at [facility]) who have ruled out stroke, CT brain [...] with dexamethasone 20 mg started 07/08/2014, kappa lightchain decreased to 833 and 33 from 7000 [...] 6 mg and cyclophosphamide 300 mg IV yjaasz8808/15/2015, developed grade 2 anemia, fatigue and grade [...] light bilaterally, anicteric sclere without conjunctival pallor. Nasalmucosa was non-erythematous. Mucous membranes were moist. Oral [...] for coordination of care (as documented) and oeag-zt-lqqy counseling of patient and/or family. [facility] - Medical History Medical History: [...] 01/19/22 09:00 KB (Rec: 01/19/22 09:01 KB [id number]) Distress Screening Distress screening follow up: Will follow with patient for any needs at next visit. Anxious about making next appointment time. - Lab Results Diagram of Most Recent CBC and CMP 04/08/22 13:20 04/08/22 13:20 Labs - Last 7 Days 04/08/22 13:20: Serum Total Protein 5.9 L, Albumin (Send Out) 3.6, Globulin (PEP) 2.3, Albumin/Globulin (PEP) 1.6, Frxoa-1-Viatfbxsj 0.1, Upjmc-5-Eywecdvea 0.8, Beta Globulins 0.7, Gamma Globulins 0.6, M-Krystian Not observed, PEP Note , Free Luckey LC, Quant 17.7, Free Lambda LC, Quant 10.0, Free Luckey/Lambda Ratio 1.77 H 04/08/22 13:20: PHA Creatinine Clear 21.38, Sodium 136, Potassium 4.6, Chloride 107, Carbon Egpclot00.8 L, BUN 27 H, Creatinine 2.35 H, [...] % (Auto) 54.1, Lymph % (Auto) 38.9, [place] % (Auto) 5.8, Eos % (Auto) 0.7, Baso % (Auto) 0.5, Neut # (Auto) 4.6, Lymph # (Auto) 3.3, [place] #(Auto) 0.5, Eos# (Auto) 0.1, Baso # (Auto) [...] solution (Oracit) 10 ml PO QID 06/16/21 [HistoryConfirmed 04/13/22] Dictated By: Misti Connolly APRN DD/ 0933 Signed By: <Electronically signed by RAMAKRISHNA Connolly> 04/13/22 1135 [facility] Work Phone: 1(379) 835-222304-25-2022 Hospital Discharge instructions Patient Education 03/08/2022 11:37:40 [...] 10/31/2006 Document Revised: 07/20/2019 Document Reviewed: 09/30/2017 [employer] Patient Education 2020 [employer] 03/08/2022 11:37:40 Calorie Counting for Weight [...] 10/31/2006 Document Revised: 07/20/2019 Document Reviewed: 09/30/2017 [employer] Patient Education 2020 [email or web address] 03/08/2022 11:37:32 Kidney Stones, Ucln-gt-Vjjg Kidney Stones Kidney stones are rock-like masses [...] Follow these instructions at home: Medicines Take ymvy-tkt-jardldx and prescription medicines only as told by [...] 04/18/2009 Document Revised: 03/18/2020 Document Reviewed: 03/18/2020 [employer] Patient Education 2019 [email or web address] Follow Up Care 09/04/2021 09:56:37 With:XAVIER VELAZQUEZ, Tyree Rivers, URL Address: [facility] [address], [place] [address]- [phone] When:01/08/2023 Comments:10 month carlene MARAVILLA [facility] 03-07-2022 Progress note Author Claire Choi [facility] January 18, 2022 9:58amNote Date/TimeMar2021 9:42amW[facility] at [address] [address] Hem/Onc Follow Up Note - OP Signed Patient: Hailee Trivedi MR#: [id number] : 1940 Acct:[id number] Age/Sex: 81 / F Type: REG RCR Copies to: Curt Clark MD~ Date of Service: 01/18/2022 Time of Service: 09:41 - Assessment & Plan (1) Multiple myeloma Plan: 81 year old female with a long history of multiple myeloma currently in a VGPR on Daratumumab basedon SPEP and 24 hr UPEP. Her myeloma [...] normal. Switched to oral Vit B12 in 04/2019.Repeat B12 level in 07/2019 was 900 and [...] prior to f/u. 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 - History of Present Illness Chief Complaint: [...] with dexamethasone 20 mg started 07/08/2014, kappa lightchain decreased to 833 and 33 from 7000 [...] 6 mg and cyclophosphamide 300 mg IV ctgamq2008/15/2015, developed grade 2 anemia, fatigue and grade [...] for coordination of care (as documented) and iptn-ym-vjgb counseling of patient and/or family. [facility] - Medical History Medical History: [...] Protocol: Document 07/15/20 10:19 (Rec: 07/15/20 10:19 BG [id number]) Distress Screening Distress Score: 3 Physical Concerns Feeling tired or a lack of energy Distress Screening Total 3 - Lab Results Diagram of Most Recent CBC and CMP 01/18/22 08:50 01/18/22 08:50 Labs - Last 7 Days 01/18/22 08:50: PHA Creatinine Clear 21.23, Sodium 136, Potassium 4.6, Chloride 106, Carbon Wlazzdz32.2 L, BUN 26 H, Creatinine 2.37 H, [...] % (Auto) 59.4, Lymph % (Auto) 31.4, [place] % (Auto) 7.2, Eos % (Auto) 0.9, Baso % (Auto) 1.1, Neut # (Auto) 5.4, Lymph # (Auto) 2.8, [place] # (Auto) 0.7, Eos# (Auto) 0.1, Baso [...] 10 mg PO TID PRN #15 tab 12/22/20 [Rx Confirmed 01/18/22] sodium citrate-citric acid 490 mg-640 mg/5 mL oral solution (Oracit) 10 ml PO QID 06/16/21 [HistoryConfirmed 01/18/22] Dictated By: Claire Choi II, DO DD/ 0941 Signed By: <Electronically signed by Claire Choi II, DO> 01/18/22 0958 [facility] Work Phone: 1(334) 925-196103-03-2022 Evaluation note* Encounter Date Diagnosis Assessment Notes Treatment Notes Treatment Clinical Notes Jan, Nephrolithiasis (ICD-10 - N20.0) Her 24 hr urine stone studies showed Hypocitruria. She did not tolerate Potassium Citrate due to hyperkalemia. Continue Oracit for for kidney stones prophylaxis.I have advised her to adequately hydrate herself. 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 with proteinuria less than 1 g. Her renal US showed B/L simple renal cyst. I have d/wher the importance of good DM and HTN control to slow down the progression of CKD Jan,Hypertensive chronic kidney disease with stage 1 through stage 4 chronic kidney disease, or unspecified chronic kidney disease (ICD-10 - I12.9) Blood pressure is high today but usually well controlled on current regimen. Continue current medications. I have advised her to monitor blood pressure at home and if it stays above 140/90 mmHg then call office. 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 Continue follow-up with DM clinic for diabetes mellitus management. She is not on MARK or ARB due to the advanced CKD. Jan,econdary hyperparathyroidism of renal origin (ICD-10 - N25.81) PTH is at goal. I have advised her to take low phosphorus diet Jan,Metabolic acidosis (ICD-10 - E87.2) She has a metabolic acidosis due to the CKD. Continue oral sodium bicarbonate. Jan,Vitamin D deficiency (ICD-10 - E55.9) Vit D is within the goal. I will continue the current treatment. Jan,Microscopic hematuria (ICD-10 - R31.29) She has microscopic hematuria likely due to Nephrolithiasis. She follows with Urologist Dr. Lou. She has hypocirturia but cannot tolerate Potassium Citrate due to hyperkalemia Jan,Multiple myeloma (ICD-10 - C90.00) Followup with Dr. Bello magnify360 Other 02-02-2022 Progress note Author Hunter Bello [facility] December 16, 2021 1:18pmNote Date/TimeFebruary 2021 1:17pmWoman'S [facility] [place] [address] Hem/Onc Follow Up Note - OP Signed Patient: Hailee Trivedi MR#: [id number] : 1940 Acct:[id number] Age/Sex: 81 / F Type: REG RCR [...] with dexamethasone 20 mg started 07/08/2014, kappa lightchain decreased to 833 and 33 from 7000 [...] 6 mg and cyclophosphamide 300 mg IV fmcjqm2708/15/2015, developed grade 2 anemia, fatigue and grade [...] will be to transfer her care to [facility] when [facility] is ready 2. VitB12 injections, monthly, [...] Depressed Mood [-], Anxiety [-], Stressed [-] [facility] - Medical History Medical History: [...] solution (Oracit) 10 ml PO QID 06/16/21 [HistoryConfirmed 12/16/21] Objective - Height/Weight Height/Weight: Height 5 [...] Protocol: Document 07/15/20 10:19 (Rec: 07/15/20 10:19 BG [id number]) Distress Screening Distress Score: 3 Physical Concerns Feeling tired or a lack of energy Distress Screening Total 3 Physical Exam Narrative: CONSTITUTIONAL: Awake, Alert and in No Acute Distress HEENT: Eyes were reactive to light bilaterally, anicteric sclere without conjunctival pallor. Nasalmucosa was non-erythematous. Mucous membranes were moist. Oral [...] myeloma currently in a VGPR on Daratumumab basedon SPEP and 24 hr UPEP. We will [...] therapy. We will transfer her care to [facility] when they are ready. o Continue Daratumumab [...] normal. Switched to oral Vit B12 in 04/2019.Repeat B12 level in 07/2019 was 900 and [...] for coordination of care (as documented) and hmjc-yv-xtzj counseling of patient and/or family. Dictated By: Hunter Bello MD DD/ 15 Signed By: <Electronically signed by MD Hunter Bello> 12/16/21 1318 [facility] Work Phone: 1([phone]) 182-179511-23-2021 Progress note Author Hunter Bello [facility] October 06, 2021 10:02amNote Date/TimeNov2020 9:58[facility] at [address] [address] Hem/Onc Follow Up Note - OP Signed Patient: Hailee Trivedi MR#: [id number] : 1940 Acct:[id number] Age/Sex: 81 / F Type: REG RCR [...] been trying to transfer her care to [facility] but they are not up to doing transfusions yet. Her labs are reviewed. She is on monthly maintenance daratumumab for multiple myeloma. She was given the Darzalex shot but did not tolerate this and is now on monthly intravenous daratumumab. - Summary of Therapies Summary of Therapies: 1. Velcade/dexamethasone induction regimen with dexamethasone 20 mg started 07/08/2014, kappa lightchain decreased to 833 and 33 from 7000 [...] 6 mg and cyclophosphamide 300 mg IV drsats0308/15/2015, developed grade 2 anemia, fatigue and grade [...] will be to transfer her care to [facility] when [facility] is ready [...] Depressed Mood [-], Anxiety [-], Stressed [-] [facility] - Medical History Medical History: [...] solution (Oracit) 10 ml PO QID 06/16/21 [HistoryConfirmed 10/06/21] Objective - Height/Weight Height/Weight: Height 5 [...] Protocol: Document 07/15/20 10:19 (Rec: 07/15/20 10:19 BG [id number]) Distress Screening Distress Score: 3 Physical Concerns Feeling tired or a lack of energy Distress Screening Total 3 Physical Exam Narrative: CONSTITUTIONAL: Awake, Alert and in No Acute Distress HEENT: Eyes were reactive to light bilaterally, anicteric sclere without conjunctival pallor. Nasalmucosa was non-erythematous. Mucous membranes were moist. Oral [...] Sodium 136, Potassium 4.7, Chloride 104, Carbon Farxeyu40.5 L, BUN 38 H, Creatinine 2.55 H, [...] % (Auto) 57.1, Lymph % (Auto) 34.7, [place] % (Auto) 6.1, Eos % (Auto) 0.8, Baso % (Auto) 1.3, Neut # (Auto) 5.1, Lymph # (Auto) 3.1, [place] # (Auto) 0.5, Eos# (Auto) 0.1, Baso # (Auto) 0.1, Nucleated RBC % (auto) 0.1 Assessment and Plan (1) Multiple myeloma Qualifiers: Multiple myeloma remission status: not in remission Qualified Code(s): C90.00 - Multiple myeloma not having achieved remission 81 year old female with a long history of multiple myeloma currently in a VGPR on Daratumumab basedon SPEP and 24 hr UPEP. We will [...] therapy. We will transfer her care to [facility] when they are ready. o Continue Daratumumab [...] normal. Switched to oral Vit B12 in 04/2019.Repeat B12 level in 07/2019 was 900 and [...] for coordination of care (as documented) and tuxx-kq-zesb counseling of patient and/or family. Dictated By: Hunter Bello MD DD/ 0957 Signed By: <Electronically signed by MD Hunter Bello> 10/06/21 1002 [facility] Work Phone: 1([phone]) 855-868511-17-2021 Evaluation note* Encounter Date Diagnosis Assessment Notes Treatment Notes Treatment Clinical Notes Sep, Nephrolithiasis (ICD-10 - N20.0) Her 24 hr urine stone studies showed Hypocitruria. She did not tolerate Potassium Citrate due to hyperkalemia. Continue Oracit for for kidney stones prophylaxis.I have advised her to adequately hydrate herself. 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 with proteinuria less than 1 g. Her renal US showed B/L simple renal cyst. I have d/wher the importance of good DM and HTN control to slow down the progression of CKD Sep,Hypertensive chronic kidney disease with stage 1 through stage 4 chronic kidney disease, or unspecified chronic kidney disease (ICD-10 - I12.9) Blood pressure is well controlled on current regimen. 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 Continue follow-up with DM clinic for diabetes mellitus management. She is not on MARK or ARB due to the advanced CKD. Sep,econdary hyperparathyroidism of renal origin (ICD-10 - N25.81) PTH is at goal. I have advised her to take low phosphorus diet Sep,Metabolic acidosis (ICD-10 - E87.2) She has a metabolic acidosis due to the CKD. Continue oral sodium bicarbonate. Sep,Vitamin D deficiency (ICD-10 - E55.9) Vit D is within the goal. I will continue the current treatment. Sep,Microscopic hematuria (ICD-10 - R31.29) She has microscopic hematuria likely due to Nephrolithiasis. She follows with Urologist Dr. Lou. She has hypocirturia but cannot tolerate Potassium Citrate due to hyperkalemia Sep,Multiple myeloma (ICD-10 - C90.00) Followup with Dr. Bello [id number] Other 10-26-2021 Progress note Author Hunter Bello [facility] September 08, 2021 11:19amNote Date/TimeOctober 2020 11:[facility] [address] [address] Hem/Onc Follow Up Note - OP Signed Patient: Hailee Trivedi MR#: [id number] : 1940 Acct:[id number] Age/Sex: 81 / F Type: REG RCR [...] and then transferring her care to the [place] [facility] clinic. She will be getting monthly daratumumab down there. She has no complaints today. She did not tolerate the Darzalex shot and is on monthly intravenous daratumumab. - Summary of Therapies Summary of Therapies: 1. Velcade/dexamethasone induction regimen with dexamethasone 20 mg started 07/08/2014, kappa lightchain decreased to 833 and 33 from 7000 [...] 6 mg and cyclophosphamide 300 mg IV mybpjz7608/15/2015, developed grade 2 anemia, fatigue and grade [...] will be to transfer her care to [place] [facility]. 2. VitB12 injections, monthly, switched [...] Depressed Mood [-], Anxiety [-], Stressed [-] [facility] - Medical History Medical History: [...] solution (Oracit) 10 ml PO QID 06/16/21 [HistoryConfirmed 09/08/21] Objective - Height/Weight Height/Weight: Height 5 [...] light bilaterally, anicteric sclere without conjunctival pallor. Nasalmucosa was non-erythematous. Mucous membranes were moist. Oral [...] Amer) 24, Est GFR (Non-Af Amer) 20, Ijjmmie404 H, Uric Acid 4.8, Calcium 8.9, Phosphorus 3.7, Magnesium 2.0, Albumin 3.4, 25-OH Vitamin D Total 38.5, PTH Intact 137.7 H 09/07/21 13:15: Corrected WBC 9.0, Uncorrected WBC Count 9.0, RBC 3.92, Hgb 12.6, Hct 37.6, MCV 95.9, MCH 32.2, MCHC 33.5, RDW 13.7, Plt Count 185, MPV 9.4,Neut % (Auto) 59.8, Lymph % (Auto) 31.4, [place] % (Auto) 7.0, Eos % (Auto) 1.2, Baso % (Auto) 0.6, Neut # (Auto) 5.4, Lymph # (Auto) 2.8, [place] # (Auto) 0.6, Eos# (Auto) 0.1, Baso # (Auto) 0.1, Nucleated RBC % (auto) 0.0 Assessment and Plan (1) Multiple myeloma Qualifiers: Multiple myeloma remission status: not in remission Qualified Code(s): C90.00 - Multiple myeloma not having achieved remission 81 year old female with a long history of multiple myeloma currently in a VGPR on Daratumumab basedon SPEP and 24 hr UPEP. We will [...] therapy See me in 1 month in [place] for monthly daratumumab. (2) B12 deficiency anemia Qualifiers: Vitamin B12 deficiency anemia type: unspecified B12 deficiency Qualified Code(s): D51.9 - Vitamin B12 deficiency anemia, unspecified Antibodies for parietal cells and intrinsic factor were normal. Switched to oral Vit B12 in 04/2019.Repeat B12 level in 07/2019 was 900 and [...] for coordination of care (as documented) and rkyj-mv-ozur counseling of patient and/or family. Dictated By: Hunter Bello MD DD/ 1116 Signed By: <Electronically signed by MD Hunter Bello> 09/08/21 1116 [facility] Work Phone: [phone] 166-488510-12-2021 History of Present illness Narrative* Patient is [...] recurrence. She did have noninvasive assessment at [facility], which was negative. Couple of years [...] change in cardiac status or symptoms [facility] [address] DO Work Phone: 1([phone]) 321-101408-03-2021 Progress note Author Louis Bradley [facility] June 16, 2021 9:35amNote Date/TimeAugust 2020 9:29[facility] [place] [address] Hem/Onc Follow Up Note - OP Signed Patient: Hailee Trivedi MR#: [id number] : 1940 Acct:[id number] Age/Sex: 81 / F Type: REG RCR [...] M-spike of 0.2 g/dL with an IgG Luckey specificity. She hadn't had a previous SPEP in 5 years per my review. Her 24-hr UPEP revealed a small M-spike as well but it was <100 mg/24 hr. She did not have immunoparesis on her labs. She feelswell and has no complaints today. - Summary of Therapies Summary of Therapies: 1. Velcade/dexamethasone induction regimen with dexamethasone 20 mg started 07/08/2014, kappa lightchain decreased to 833 and 33 from 7000 [...] 6 mg and cyclophosphamide 300 mg IV [id number]/15/2015, developed grade 2 anemia, fatigue and grade [...] Depressed Mood [-], Anxiety [-], Stressed [-] [facility] - Medical History Medical History: [...] solution (Oracit) 5 ml PO ONCE 06/16/21 [HistoryConfirmed 06/16/21] Objective - Height/Weight Height/Weight: Height 5 [...] light bilaterally, anicteric sclere without conjunctival pallor. Nasalmucosa was non-erythematous. Mucous membranes were moist. Oral [...] % (Auto) 34.5 % (.) 06/09/21 09:40 [place] % (Auto) 5.6 % (.) 06/09/21 09:40 Eos % (Auto) 1.1 % (.) 06/09/21 09:40 Baso % (Auto) 0.6 % (.) 06/09/21 09:40 Neut # (Auto) 4.4 x10E3/uL (1.8-7.7) 06/09/21 09:40 Lymph # (Auto) 2.6 x10E3/uL (1.00-4.8) 06/09/21 09:40 [place] # (Auto) 0.4 x10E3/uL (0.0-0.8) 06/09/21 09:40 [...] 09:40 Albumin/Globulin (PEP) 1.3 (0.7-1.7) 06/09/21 09:40 Liddz-6-Jqqpbcete 0.2 g/dL (0.0-0.4) 06/09/21 09:40 Lmrdu-0-Nqpfnaklu 0.9 g/dL (0.4-1.0) 06/09/21 09:40 Beta Globulins [...] Urine pH (5.0-9.0) 02/24/21 12:05 Ur Specific [place] 1.009 (1.001-1.030) 02/24/21 12:05 Urine Protein mg/dL [...] 125 mg/24 hr (30-150) 06/09/21 09:28 U Kkgej-4-Ywwjmqrg 4.3 % (.) 06/09/21 09:28 U Kbyuw-5-Otpfgyjs 16.0 % (.) 06/09/21 09:28 U Beta [...] Ab 0.9 AU/mL (0.0-1.1) 02/28/19 11:21 Free Luckey LC, Quant 20.1 mg/L (3.3-19.4) H 06/09/21 09:40 Free Lambda LC, Quant 11.9 mg/L (5.7-26.3) 06/09/21 09:40 Free Luckey/Lambda Ratio 1.69 (0.26-1.65) H 06/09/21 09:40 Assessment and Plan (1) Multiple myeloma Qualifiers: Multiple myeloma remission status: not in remission Qualified Code(s): C90.00 - Multiple myeloma not having achieved remission 81 year old female with a long history of multiple myeloma currently in a VGPR on Daratumumab basedon SPEP and 24 hr UPEP. We will [...] normal. Switched to oral Vit B12 in 04/2019.Repeat B12 level in 07/2019 was 900 and [...] for coordination of care (as documented) and yrol-nt-eywd counseling of patient and/or family. Dictated By: Louis Bradley MD DD/ 7 Signed By: <Electronically signed by Louis Bradley MD> 06/16/2135 [facility] Work Phone: 1(224) 548-369707-06-2021 Progress note Author Louis Bradley [facility] May 19, 2021 2:08pmNote Date/TimeJuly 2020 1:50pm[facility] [place] [address] Hem/Onc Follow Up Note - OP Signed Patient: Hailee Trivedi MR#: [id number] : 1940 Acct:[id number] Age/Sex: 81 / F Type: REG RCR [...] with dexamethasone 20 mg started 07/08/2014, kappa lightchain decreased to 833 and 33 from 7000 [...] 6 mg and cyclophosphamide 300 mg IV [id number]/15/2015, developed grade 2 anemia, fatigue and grade [...] Depressed Mood [-], Anxiety [-], Stressed [-] [facility] - Medical History Medical History: [...] Allergies lenalidomide [From Revlimid] Allergy (Mild, Verified 07/06/21 08:58) Rash oxybutynin Allergy (Verified 05/19/21 08:58) [...] light bilaterally, anicteric sclere without conjunctival pallor. Nasalmucosa was non-erythematous. Mucous membranes were moist. Oral [...] % (Auto) 34.2 % (.) 04/14/21 11:10 [place] % (Auto) 5.7 % (.) 04/14/21 11:10 Eos % (Auto) 1.1 % (.) 04/14/21 11:10 Baso % (Auto) 0.6 % (.) 04/14/21 11:10 Neut # (Auto) 5.0 x10E3/uL (1.8-7.7) 04/14/21 11:10 Lymph # (Auto) 2.9 x10E3/uL (1.00-4.8) 04/14/21 11:10 [place] # (Auto) 0.5 x10E3/uL (0.0-0.8) 04/14/21 11:10 [...] Urine pH (5.0-9.0) 02/24/21 12:05 Ur Specific [place] 1.009 (1.001-1.030) 02/24/21 12:05 Urine Protein mg/dL [...] Ab 0.9 AU/mL (0.0-1.1) 02/28/19 11:21 Free Luckey LC, Quant 17.8 mg/L (3.3-19.4) 04/14/21 11:10 Free Lambda LC, Quant 9.2 mg/L (5.7-26.3) 04/14/21 11:10 Free Luckey/Lambda Ratio 1.93 (0.26-1.65) H 04/14/21 11:10 Assessment [...] she progressed on Carfilzomib. She is tolerating therapywith daratumumab well. o Continue Daratumumab at current dosing o Check SPEP, 24-hr UPEP, Urine SFLC, Quantitative Immunoglobulins o Continue Acyclovir 400 mg BID prophylaxis o Follow-up in 1 month (2) B12 deficiency anemia Antibodies for parietal cells and intrinsic factor were normal. Switched to oral Vit B12 in 04/2019.Repeat B12 level in 07/2019 was 900 and [...] for coordination of care (as documented) and cjel-sc-qloh counseling of patient and/or family. Dictated By: Louis Bradley MD DD/ 1349 Signed By: <Electronically signed by Louis Bradley MD> 05/19/21 1408 [facility] Work Phone: [phone] Progress note Author Margarito Buenrostro [facility] March 24, 2021 12:36pmNote Date/TimeMay 2020 12:33pmW[facility] [place] [address] Hem/Onc Follow Up Note - OP Signed Patient: Hailee Trivedi MR#: [id number] : 1940 Acct:[id number] Age/Sex: 80 / F Type: REG RCR [...] with dexamethasone 20 mg started 07/08/2014, kappa lightchain decreased to 833 and 33 from 7000 [...] 6 mg and cyclophosphamide 300 mg IV eymmol0808/15/2015, developed grade 2 anemia, fatigue and grade [...] flushing, intolerance to cold, intolerance to heat, weightgain/loss Allergic/immunology: Negative: Pruritus, rash PMFSH - Medical [...] - Last 7 Days 03/17/21 13:30: Free Luckey LC, Quant 28.8 H, Free Lambda LC, Quant 13.2, Free Luckey/Lambda Ratio 2.18 H 03/17/21 13:30: Corrected WBC 6.1, Uncorrected WBC Count 6.1, RBC 3.56 L, Hgb 11.7 L, Hct 34.3, MCV96.4, MCH 32.8, MCHC 34.0, RDW 13.7, Plt Count 227, MPV 10.2, Neut % (Auto) 40.5, Lymph % (Auto) 47.8, [place] % (Auto) 10.6, Eos % (Auto) 0.6, Baso % (Auto) 0.5, Neut # (Auto) 2.5, Lymph # (Auto) 2.9, [place] # (Auto) 0.6, Eos # (Auto) 0.0, Baso # (Auto) 0.0, Nucleated RBC % (auto) 0.2 Assessment and Plan (1) Multiple myeloma in remission kappa light chain multiple myeloma, refractory to Velcade dexamethasone and cyclophosphamide, couldnot tolerate Revlimid, progressed on Carfilzomib. -Ongoing brisk response to single agent Daratumumab. No overt adverse effects, the dizziness is notrelated to Daratumumab. -Dose held in 01/2020 and 02/2020 due to COVID-19 pandemics, K/L ratio is increasing in 03/03, resumedevery 4 weeks cycle starting on 03/19/20. 03/24/2021: [...] for coordination of care (as documented) and qbuc-fv-arkk counseling of patient and/or family. Dictated By: Margarito Buenrostro MD DD/ 1232 Signed By: <Electronically signed by Margarito Buenrostro MD> 03/24/21 1236 [facility] Work Phone: [phone] Progress note Author Margarito Buenrostro [facility] February 06, 2021 10:35amNote Date/TimeMarch 2020 10:32[facility] at [address] [address] Hem/Onc Follow Up Note - OP Signed Patient: Hailee Trivedi MR#: [id number] : 1940 Acct:[id number] Age/Sex: 80 / F Type: REG RCR [...] with dexamethasone 20 mg started 07/08/2014, kappa lightchain decreased to 833 and 33 from 7000 [...] 6 mg and cyclophosphamide 300 mg IV [id number]/15/2015, developed grade 2 anemia, fatigue and grade [...] flushing, intolerance to cold, intolerance to heat, weightgain/loss Allergic/immunology: Negative: Pruritus, rash PMFSH - Medical [...] Sodium 139, Potassium 4.0, Chloride 107, Carbon Msepxer14.3 L, BUN 24 H, Creatinine 2.44 H, Est GFR ( Amer) 23, Est GFR (Non-Af Amer) 19, Glucose 170 H, Calcium 8.5, Total Bilirubin 0.7, AST 15, ALT 14, Alkaline Phosphatase 95 H, Total Protein 5.8L, Albumin 3.3, Globulin 2.5, Albumin/Globulin Ratio 1.3 02/06/21 08:55: Corrected WBC 7.3, Uncorrected WBC Count 7.3, RBC 3.83, Hgb 12.4, Hct 37.1, MCV 96.8, MCH 32.5, MCHC 33.6, RDW 13.5, Plt Count 211, MPV 9.7,Neut % (Auto) 64.7, Lymph % (Auto) 27.2, [place] % (Auto) 6.2, Eos % (Auto) 1.5, Baso % (Auto) 0.4, Neut # (Auto) 4.7, Lymph # (Auto) 2.0, [place] # (Auto) 0.5, Eos# (Auto) 0.1, Baso # (Auto) 0.0, Nucleated RBC % (auto) 0.1 Assessment and Plan (1) Multiple myeloma in remission kappa light chain multiple myeloma, refractory to Velcade dexamethasone and cyclophosphamide, couldnot tolerate Revlimid, progressed on Carfilzomib. -Ongoing brisk response to single agent Daratumumab. No overt adverse effects, the dizziness is notrelated to Daratumumab. -Dose held in 01/2020 and 02/2020 due to COVID-19 pandemics, K/L ratio is increasing in 03/03, resumedevery 4 weeks cycle starting on 03/19/20. 02/06/2021: 1 month follow-up after cycle 1 Darzalex Faspro she is profoundly fatigue without othercauses. We will delay next treatment for another [...] for coordination of care (as documented) and fyvw-fu-qrgk counseling of patient and/or family. Dictated By: Margarito Buenrostro MD DD/ 1031 Signed By: <Electronically signed by Margarito Buenrostro MD> 02/06/21 1036 [facility] Work Phone: [phone] Progress note Author Margarito Buenrostro [facility] January 08, 2021 10:17amNote Date/TimeFebruary 2020 10:14[facility] at [address] [address] Hem/Onc Follow Up Note - OP Signed Patient: Hailee Trivedi MR#: [id number] : 1940 Acct:[id number] Age/Sex: 80 / F Type: REG RCR [...] with dexamethasone 20 mg started 07/08/2014, kappa lightchain decreased to 833 and 33 from 7000 [...] 6 mg and cyclophosphamide 300 mg IV [id number]/15/2015, developed grade 2 anemia, fatigue and grade [...] flushing, intolerance to cold, intolerance to heat, weightgain/loss Allergic/immunology: Negative: Pruritus, rash PMFSH - Medical [...] myeloma, refractory to Velcade dexamethasone and cyclophosphamide, couldnot tolerate Revlimid, progressed on Carfilzomib. -Ongoing brisk response to single agent Daratumumab. No overt adverse effects, the dizziness is notrelated to Daratumumab. -Dose held in 01/2020 and 02/2020 due to COVID-19 pandemics, K/L ratio is increasing in 03/03, resumedevery 4 weeks cycle starting on 03/19/20. 01/08/2021: 1 month follow-up after cycle 39 single agent Daratumumab. -She is to start Darzalex Faspro next Tuesday. Rationale/risks/benefit/alternatives of Darzalex Faspro and anticipated side effects discussed in details, including neutropenia, increased risk of infect ion, allergic reactions, s he verbalized good understanding and signed informed written consent, I plan to see in 4 weeks, repeat Luckey/lambda ratio in6-8 weeks. -Continue Acyclovir 400mg bid [...] for coordination of care (as documented) and lvut-md-vulv counseling of patient and/or family. Dictated By: Margarito Buenrostro MD DD/ 1013 Signed By: <Electronically signed by Margarito Buenrostro MD> 01/08/21 1017 [facility] Work Phone: [phone]) 137-147401-19-2021 Progress note Author Margarito Buenrostro [facility] December 02, 2020 12:29pmNote Date/TimeJan2020 12:27pmW[facility] [place] [id number] Hem/Onc Follow Up Note - OP Signed Patient: Hailee Trivedi MR#: [id number] : 1940 Acct:[id number] Age/Sex: 80 / F Type: REG RCR [...] with dexamethasone 20 mg started 07/08/2014, kappa lightchain decreased to 833 and 33 from 7000 [...] 6 mg and cyclophosphamide 300 mg IV [id number]/15/2015, developed grade 2 anemia, fatigue and grade [...] flushing, intolerance to cold, intolerance to heat, weightgain/loss Allergic/immunology: Negative: Pruritus, rash PMFSH - Medical [...] myeloma, refractory to Velcade dexamethasone and cyclophosphamide, couldnot tolerate Revlimid, progressed on Carfilzomib. -Ongoing brisk response to single agent Daratumumab. No overt adverse effects, the dizziness is notrelated to Daratumumab. -Dose held in 01/2020 and 02/2020 due to COVID-19 pandemics, K/L ratio is increasing in 03/03, resumedevery 4 weeks cycle starting on 03/19/20. : 1 month follow-up prior to cycle 39 single agent Daratumumab. -Doing well, proceed to treatment, see in 4 weeks. Discussed Darzalex Faspro, she expressed interest, plan to start in 4 weeks, repeat Luckey/lambda ratio in 6weeks. -Continue Acyclovir 400mg bid [...] for coordination of care (as documented) and yhkx-gd-nrio counseling of patient and/or family. Dictated By: Margarito Buenrostro MD DD/ 25 Signed By: <Electronically signed by Margarito Buenrostro MD> 12/02/20 1229 [facility] Work Phone: 1(231) 344-204912-22-2020 Progress note Author Margarito Buenrostro [facility] November 04, 2020 1:30pmNote Date/TimeDecember 2019 1:22pmW[facility] [place] [address] Hem/Onc Follow Up Note - OP Signed Patient: Hailee Trivedi MR#: [id number] : 1940 Acct:[id number] Age/Sex: 80 / F Type: REG RCR [...] as directed. Chronically fatigued, stable. She reports bilateralshould pain, worst last . - Summary of Therapies Summary of Therapies: 1. Velcade/dexamethasone induction regimen with dexamethasone 20 mg started 07/08/2014, kappa lightchain decreased to 833 and 33 from 7000 [...] 6 mg and cyclophosphamide 300 mg IV [id number]/15/2015, developed grade 2 anemia, fatigue and grade [...] flushing, intolerance to cold, intolerance to heat, weightgain/loss Allergic/immunology: Negative: Pruritus, rash PMFSH - Medical [...] - Last 7 Days 10/28/20 11:11: Free Luckey LC, Quant , Free Lambda LC, Quant , Free Luckey/LambdaRatio Order Luckey Free K+L Assessment and Plan (1) Multiple myeloma in remission kappa light chain multiple myeloma, refractory to Velcade dexamethasone and cyclophosphamide, couldnot tolerate Revlimid, progressed on Carfilzomib. -Ongoing brisk response to single agent Daratumumab. No overt adverse effects, the dizziness is notrelated to Daratumumab. -Dose held in 01/2020 and 02/2020 due to COVID-19 pandemics, K/L ratio is increasing in 03/03, resumedevery 4 weeks cycle starting on 03/19/20. 11/04/2020: 1 month follow-up prior to cycle 38 single agent Daratumumab. -Doing well, proceed to treatment, see in 4 weeks. Her Luckey/lambda ratio was not drawn, will draw today. [...] for coordination of care (as documented) and ypey-uq-qmnw counseling of patient and/or family. Dictated By: Margarito Buenrostro MD DD/ 1317 Signed By: <Electronically signed by Margarito Buenrostro MD> 11/04/20 1330 [facility] Work Phone: 1([phone]) 862-367111-24-2020 Progress note Author Margarito Buenrostro [facility] October 07, 2020 10:20amNote Date/TimeNov2019 10:18[facility] [place] [address] Hem/Onc Follow Up Note - OP Signed Patient: Hailee Trivedi MR#: [id number] : 1940 Acct:[id number] Age/Sex: 80 / F Type: REG RCR [...] with dexamethasone 20 mg started 07/08/2014, kappa lightchain decreased to 833 and 33 from 7000 [...] 6 mg and cyclophosphamide 300 mg IV [id number]/15/2015, developed grade 2 anemia, fatigue and grade [...] flushing, intolerance to cold, intolerance to heat, weightgain/loss Allergic/immunology: Negative: Pruritus, rash PMFSH - Medical [...] Confirmed 10/07/20] cephalexin 250 mg PO DAILY 02/25/20 [History Confirmed 10/07/20] Objective - Height/Weight Height/Weight: [...] myeloma, refractory to Velcade dexamethasone and cyclophosphamide, couldnot tolerate Revlimid, progressed on Carfilzomib. -Ongoing brisk response to single agent Daratumumab. No overt adverse effects, the dizziness is notrelated to Daratumumab. -Dose held in 01/2020 and 02/2020 due to COVID-19 pandemics, K/L ratio is increasing in 03/03, resumedevery 4 weeks cycle starting on 03/19/20. 10/07/2020: 1 month follow-up prior to cycle 37 single agent Daratumumab. -Doing well, proceed to treatment, see in 4 weeks. Plan to repeat Luckey/lambda ratio in 3 weeks. -Continue Acyclovir 400mg [...] patient was for coordination of care(as documented) alkuxtp-xx-wtpz counseling of patient and/or family. Dictated By: Margarito Buenrostro MD DD/ 1017 Signed By: <Electronically signed by Margarito Buenrostro MD> 10/07/20 1020 [facility] Work Phone: 1([phone]) 918-536610-27-2020 Progress note Author Margarito Buenrostro [facility] September 09, 2020 10:20amNote Date/TimeOct2019 10:18[facility] [place] [address] Hem/Onc Follow Up Note - OP Signed Patient: Hailee Trivedi MR#: [id number] : 1940 Acct:[id number] Age/Sex: 80 / F Type: REG RCR [...] with dexamethasone 20 mg started 07/08/2014, kappa lightchain decreased to 833 and 33 from 7000 [...] 6 mg and cyclophosphamide 300 mg IV txjnrs5008/15/2015, developed grade 2 anemia, fatigue and grade [...] flushing, intolerance to cold, intolerance to heat, weightgain/loss Allergic/immunology: Negative: Pruritus, rash PMFSH - Medical [...] - Last 7 Days 09/01/20 10:35: Free Luckey LC, Quant 19.8 H, Free Lambda LC, Quant 11.2, Free Luckey/Lambda Ratio 1.77 H Assessment and Plan (1) Multiple myeloma in remission kappa light chain multiple myeloma, refractory to Velcade dexamethasone and cyclophosphamide, couldnot tolerate Revlimid, progressed on Carfilzomib. -Ongoing brisk response to single agent Daratumumab. No overt adverse effects, the dizziness is notrelated to Daratumumab. -Dose held in 01/2020 and 02/2020 due to COVID-19 pandemics, K/L ratio is increasing in 03/03, resumedevery 4 weeks cycle starting on 03/19/20. 09/09/2020: 1 month follow-up prior to cycle 36 single agent Daratumumab. -Doing well, proceed to treatment, see in 4 weeks. Plan to repeat Luckey/lambda ratio in 7 weeks. -Continue Acyclovir 400mg [...] patient was for coordination of care(as documented) utvkpmr-wy-xzne counseling of patient and/or family. Dictated By: Margarito Buenrostro MD DD/ 1017 Signed By: <Electronically signed by Margarito Buenrostro MD> 09/09/20 1020 [facility] Work Phone: [phone]) [phone] Progress note Author Margarito Buenrostro [facility] August 12, 2020 11:28amNote Date/TimeSeptember 2019 11:25[facility] [place] [id number] Hem/Onc Follow Up Note - OP Signed Patient: Hailee Trivedi MR#: [id number] : 1940 Acct:[id number] Age/Sex: 80 / F Type: REG RCR [...] with dexamethasone 20 mg started 07/08/2014, kappa lightchain decreased to 833 and 33 from 7000 [...] 6 mg and cyclophosphamide 300 mg IV sqvgeh6908/15/2015, developed grade 2 anemia, fatigue and grade [...] flushing, intolerance to cold, intolerance to heat, weightgain/loss Allergic/immunology: Negative: Pruritus, rash PMFSH - Medical [...] myeloma, refractory to Velcade dexamethasone and cyclophosphamide, couldnot tolerate Revlimid, progressed on Carfilzomib. -Ongoing brisk response to single agent Daratumumab. No overt adverse effects, the dizziness is notrelated to Daratumumab. -Dose held in 01/2020 and 02/2020 due to COVID-19 pandemics, K/L ratio is increasing in 03/03, resumedevery 4 weeks cycle starting on 03/19/20. 08/12/2020: 1 month follow-up prior to cycle 35 single agent Daratumumab. -Doing well, proceed to treatment, see in 4 weeks. Plan to repeat Luckey/lambda ratio in 3 weeks. -Continue Acyclovir 400mg [...] patient was for coordination of care(as documented) uytmktg-ug-aknq counseling of patient and/or family. Dictated By: Margarito Buenrostro MD DD/ Signed By: <Electronically signed by Margarito Buenrostro MD> 08/12/20 1128 [facility] Work Phone: [phone]) 620-808409-01-2020 Progress note Author Margarito Buenrostro [facility] July 15, 2020 10:42amNote Date/TimeSept2019 10:40[facility] [place] [address] Hem/Onc Follow Up Note - OP Signed Patient: Hailee Trivedi MR#: [id number] : 1940 Acct:[id number] Age/Sex: 80 / F Type: REG RCR [...] with dexamethasone 20 mg started 07/08/2014, kappa lightchain decreased to 833 and 33 from 7000 [...] 6 mg and cyclophosphamide 300 mg IV vxasow5208/15/2015, developed grade 2 anemia, fatigue and grade [...] flushing, intolerance to cold, intolerance to heat, weightgain/loss Allergic/immunology: Negative: Pruritus, rash PMFSH - Medical [...] - Last 7 Days 07/07/20 11:10: Free Luckey LC, Quant 18.5, Free Lambda LC, Quant 11.7, Free Luckey/Lambda Ratio 1.58 Assessment and Plan (1) Multiple myeloma in remission kappa light chain multiple myeloma, refractory to Velcade dexamethasone and cyclophosphamide, couldnot tolerate Revlimid, progressed on Carfilzomib. -Ongoing brisk response to single agent Daratumumab. No overt adverse effects, the dizziness is notrelated to Daratumumab. -Dose held in 01/2020 and 02/2020 due to COVID-19 pandemics, K/L ratio is increasing, no recent labs,would resume every 4 weeks cycle, starting today on 03/19/20. 07/15/2020: 1 month follow-up prior to cycle 34 single agent Daratumumab. -Doing well, proceed to treatment, see in 4 weeks. Plan to repeat Luckey/lambda ratio in 8 weeks. -Continue Acyclovir 400mg [...] for coordination of care (as documented) and espl-hn-tyhy counseling of patient and/or family. Dictated By: Margarito Buenrostro MD DD/ 1039 Signed By: <Electronically signed by Margarito Buenrostro MD> 07/15/20 1042 [facility] Work Phone: 1([phone]) 520-294208-04-2020 Progress note Author Margarito Buenrostro [facility] June 17, 2020 10:25amNote Date/TimeAugust 2019 10:22[facility] [place] [address] Hem/Onc Follow Up Note - OP Signed Patient: Hailee Trivedi MR#: [id number] : 1940 Acct:[id number] Age/Sex: 80 / F Type: REG RCR [...] with dexamethasone 20 mg started 07/08/2014, kappa lightchain decreased to 833 and 33 from 7000 [...] 6 mg and cyclophosphamide 300 mg IV [id number]/15/2015, developed grade 2 anemia, fatigue and grade [...] flushing, intolerance to cold, intolerance to heat, weightgain/loss Allergic/immunology: Negative: Pruritus, rash PMFSH - Medical [...] myeloma, refractory to Velcade dexamethasone and cyclophosphamide, couldnot tolerate Revlimid, progressed on Carfilzomib. -Ongoing brisk response to single agent Daratumumab. No overt adverse effects, the dizziness is notrelated to Daratumumab. -Dose held in 01/2020 and 02/2020 due to COVID-19 pandemics, K/L ratio is increasing, no recent labs,would resume every 4 weeks cycle, starting today on 03/19/20. 06/17/2020: 1 month follow-up prior to cycle 33 single agent Daratumumab. -Doing well, proceed to treatment, see in 4 weeks. Plan to repeat Luckey/lambda ratio in 4 weeks. -Continue Acyclovir 400mg [...] patient was for coordination of care(as documented) fwbvkal-jr-tbxn counseling of patient and/or family. Dictated By: Margarito Buenrostro MD DD/ 1022 Signed By: <Electronically signed by Margarito Buenrostro MD> 06/17/20 1025 [facility] Work Phone: 1([phone] 473-302607-07-2020 Progress note Author Margarito Buenrsotro [facility] May 20, 2020 10:10amNote Date/TimeJuly 2019 10:00[facility] at [address] [address] Hem/Onc Follow Up Note - OP Signed Patient: Hailee Trivedi MR#: [id number] : 1940 Acct:[id number] Age/Sex: 80 / F Type: REG RCR Copies to: Curt Clark MD~ Subjective Date/Time of Service: Date of Service: 05/20/2020 Time of Service: 09:58 Chief Complaint: Follow up appt prior to treatment HPI: Hailee presented for routine follow up prior to cycle 32 Daratumumab for her history of multiple myeloma. She continues on baby aspirin and Xarelto as directed. Chronically fatigued, stable. Otherwiseno specific complaint - Summary of Therapies Summary of Therapies: 1. Velcade/dexamethasone induction regimen with dexamethasone 20 mg started 07/08/2014, kappa lightchain decreased to 833 and 33 from 7000 [...] 6 mg and cyclophosphamide 300 mg IV [id number]/15/2015, developed grade 2 anemia, fatigue and grade [...] flushing, intolerance to cold, intolerance to heat, weightgain/loss Allergic/immunology: Negative: Pruritus, rash PMFSH - Medical [...] - Last 7 Days 05/13/20 10:09: Free Luckey LC, Quant 18.5, Free Lambda LC, Quant 9.6, Free Luckey/Lambda Ratio 1.93 H 05/13/20 10:09: PHA Creatinine Clear [id number], Sodium 138, Potassium 4.6, Chloride 112, CarbonDioxide 19.5 L, BUN 33 H, Creatinine 2.45 [...] Neut % (Auto) 59.3,Lymph % (Auto) 31.6, [place] % (Auto) 7.5, Eos % (Auto) 1.1, Baso % (Auto) 0.5, Neut # (Auto) 4.6, Lymph # (Auto) 2.4, [place] # (Auto) 0.6, Eos # (Auto) 0.1, Baso# (Auto) 0.0, Nucleated RBC % (auto) 0.4 Assessment and Plan (1) Multiple myeloma in remission kappa light chain multiple myeloma, refractory to Velcade dexamethasone and cyclophosphamide, couldnot tolerate Revlimid, progressed on Carfilzomib. -Ongoing brisk response to single agent Daratumumab. No overt adverse effects, the dizziness is notrelated to Daratumumab. -Dose held in 01/2020 and 02/2020 due to COVID-19 pandemics, K/L ratio is increasing, no recent labs,would resume every 4 weeks cycle, starting today on 03/19/20. 05/20/2020: 1 month follow-up prior to cycle 32 single agent Daratumumab. -Doing well, proceed to treatment, see in 4 weeks. Plan to repeat Luckey/lambda ratio in 8 weeks. Wewill update B12 level in 4 weeks. -Continue [...] for coordination of care (as documented) and pmzf-er-bymb counseling of patient and/or family. Dictated By: Margarito Buenrostro MD DD/ 0958 Signed By: <Electronically signed by Margarito Buenrostro MD> 05/20/20 1010 [facility] Work Phone: 1([phone]) 477-768306-03-2020 Progress note Author Carol Younger [facility] April 16, 2020 10:49amNote Date/TimeJun2019 9:10[facility] [place] [address] Hem/Onc Follow Up Note - OP Signed Patient: Hailee Trivedi MR#: [id number] : 1940 Acct:[id number] Age/Sex: 79 / F Type: REG RCR [...] she further denies melena, and hematochezia. Hailee hasa follow-up appointment with her dentist and cardiology [...] with dexamethasone 20 mg started 07/08/2014, kappa lightchain decreased to 833 and 33 from 7000 [...] 6 mg and cyclophosphamide 300 mg IV [id number]/15/2015, developed grade 2 anemia, fatigue and grade [...] flushing, intolerance to cold, intolerance to heat, weightgain/loss Allergic/immunology: Negative: Pruritus, rash PMFSH - History [...] - Last 7 Days 04/09/20 09:35: Free Luckey LC, Quant 16.6, Free Lambda LC, Quant 9.8, Free Luckey/Lambda Ratio 1.69 H 04/09/20 09:35: PHA Creatinine Clear [id number], Sodium 138, Potassium 4.6, Chloride 111, CarbonDioxide 23.1, BUN 28 H, Creatinine 2.71 H, [...] Neut % (Auto) 62.6,Lymph % (Auto) 29.5, [place] % (Auto) 5.8,Eos % (Auto) 1.5, Baso % (Auto) 0.6, Neut # (Auto) 4.2, Lymph # (Auto) 2.0, [place] # (Auto) 0.4, Eos # (Auto) 0.1, Baso# (Auto) 0.0, Nucleated RBC % (auto) 0.2 Assessment and Plan (1) Multiple myeloma in remission kappa light chain multiple myeloma, refractory to Velcade dexamethasone and cyclophosphamide, couldnot tolerate Revlimid, progressed on Carfilzomib. -Ongoing brisk response to single agent Daratumumab. No overt adverse effects, the dizziness is notrelated to Daratumumab. -Dose held in 01/2020 and 02/2020 due to COVID-19 pandemics, K/L ratio is increasing, no recent labs,would resume every 4 weeks cycle, starting today on 03/19/20. 04/16/2020: 1 month follow-up prior to cycle 31 single agent Daratumumab. -Stable amenia with hemoglobin 11.6. stable fatigue, no gross bleeding, no worsening bone pain. -MARIAMA on Chronic, history CKD stage 4 serum creatinine 2.71, s/p lithotripsy withstone removed. Urology following. The patient is also followed by nephrology -Luckey/lambda ratio mild improvement 1.69 -Continue Acyclovir 400mg [...] for coordination of care (as documented) and kfnd-xm-rwfo counseling of patient and/or family. Dictated By: Carol Younger APRN DD/ 0909 Signed By: <Electronically signed by RAMAKRISHNA Younger> 04/16/20 2330 [facility] Work Phone: 1([phone] Progress note Author Margarito Buenrostro [facility] March 19, 2020 8:55amNote Date/TimeMay 2019 8:[facility] [address] [address] Hem/Onc Follow Up Note - OP Signed Patient: Hailee Trivedi MR#: [id number] : 1940 Acct:[id number] Age/Sex: 79 / F Type: REG RCR [...] with dexamethasone 20 mg started 07/08/2014, kappa lightchain decreased to 833 and 33 from 7000 [...] 6 mg and cyclophosphamide 300 mg IV [id number]/15/2015, developed grade 2 anemia, fatigue and grade [...] myeloma, refractory to Velcade dexamethasone and cyclophosphamide, couldnot tolerate Revlimid, progressed on Carfilzomib. -Ongoing brisk response to single agent Daratumumab. No overt adverse effects, the dizziness is notrelated to Daratumumab. -Dose held in 01/2020 and 02/2020 due to COVID-19 pandemics, K/L ratio is increasing, no recent labs,would resume every 4 weeks cycle, starting today [...] for coordination of care (as documented) and kwnl-vq-oosc counseling of patient and/or family. Dictated By: Margarito Buenrostro MD DD/ Signed By: <Electronically signed by Margarito Buenrostro MD> 03/19/20 0855 [facility] Work Phone: 1([phone] 226-306902-26-2020 Progress note Author Margarito Buenrostro [facility] January 09, 2020 9:15amNote Date/TimeFebruary 2019 9:12[facility] [place] [id number] Hem/Onc Follow Up Note - OP Signed Patient: Hailee Trivedi MR#: [id number] : 1940 Acct:[id number] Age/Sex: 79 / F Type: REG RCR [...] with dexamethasone 20 mg started 07/08/2014, kappa lightchain decreased to 833 and 33 from 7000 [...] 6 mg and cyclophosphamide 300 mg IV zgycyr3308/15/2015, developed grade 2 anemia, fatigue and grade [...] Neut % (Auto) 64.3,Lymph % (Auto) 25.2, [place] % (Auto) 7.0, Eos % (Auto) 3.0, Baso % (Auto) 0.5, Neut # (Auto) 4.3, Lymph # (Auto) 1.7, [place] # (Auto) 0.5, Eos # (Auto) 0.2, Baso# (Auto) 0.0, Nucleated RBC % (auto) 0.0 01/03/20 09:10: Free Luckey LC, Quant 17.3, Free Lambda LC, Quant 10.2, Free Luckey/Lambda Ratio 1.70H Assessment and Plan (1) Multiple myeloma in remission kappa light chain multiple myeloma, refractory to Velcade dexamethasone and cyclophosphamide, couldnot tolerate Revlimid, progressed on Carfilzomib. -Ongoing brisk response to single agent Daratumumab. No overt adverse effects, the dizziness is notrelated to Daratumumab. -She prefers to space out her treatment to every 6 weeks, we discussed that no data to guide the decision at this point, but it is reasonable to do as she has a dramatic and sustained response. -Labs adequate to treat, Luckey light chain level slightly trend upwards, but still stable, will proceed to Daratumumab today, will see her back in 6 weeks, plan to repeat K/L light chains in 5 weeks ahead of time, if Luckey light chain continue to go up, plan to resume monthly schedule. She knows tocall me if questions or concerns arise. (2) [...] for coordination of care (as documented) and xrru-ok-sehn counseling of patient and/or family. Dictated By: Margarito Buenrostro MD DD/ 0 Signed By: <Electronically signed by Margarito Buenrostro MD> 01/09/20914 [facility] Work Phone: [phone] Progress note Author Margarito Buenrostro [facility] November 28, 2019 10:50amNote Date/TimeJanuary 2019 9:43[facility] at [address] [address] Hem/Onc Follow Up Note - OP Signed Patient: Hailee Trivedi MR#: [id number] : 1940 Acct:[id number] Age/Sex: 79 / F Type: REG RCR [...] with dexamethasone 20 mg started 07/08/2014, kappa lightchain decreased to 833 and 33 from 7000 [...] 6 mg and cyclophosphamide 300 mg IV [id number]/15/2015, developed grade 2 anemia, fatigue and grade [...] - Last 7 Days 11/20/19 14:30: Free Luckey LC, Quant 14.5, Free Lambda LC, Quant 7.7, Free Luckey/Lambda Ratio 1.88 H Assessment and Plan (1) Multiple myeloma in remission kappa light chain multiple myeloma, refractory to Velcade dexamethasone and cyclophosphamide, couldnot tolerate Revlimid, progressed on Carfilzomib. -Ongoing brisk response to single agent Daratumumab. No overt adverse effects, the dizziness is notrelated to Daratumumab. -She prefers to space out her treatment to every 6 weeks, we discussed that no data to guide the decision at this point, but it is reasonable to do as she has a dramatic and sustained response. -Labs adequate to treat, Luckey light chain level slightly trend upwards, will proceed to Daratumumab today, will see her back in 6 weeks, plan to repeat K/L light chains in 5 weeks ahead of time, if Luckey light chain continue to go up, plan [...] for coordination of care (as documented) and zuth-rr-bxcc counseling of patient and/or family. Dictated By: Margarito Buenrostro MD DD/ 0943 Signed By: <Electronically signed by Margarito Buenrostro MD> 11/28/19 3998 [facility] Work Phone: 1(622) 658-534512-04-2019 Progress note Author Margarito Buenrostro [facility] October 17, 2019 9:37amNote Date/TimeDece2018 9:30[facility] [place] [address] Hem/Onc Follow Up Note - OP Signed Patient: Hailee Trivedi MR#: [id number] : 1940 Acct:[id number] Age/Sex: 79 / F Type: REG RCR Copies to: Curt Clark MD~ Subjective Date/Time of Service: Date of Service: 10/17/2019 Time of Service: 09:26 Chief Complaint: Follow up appt prior to treatment doing well HPI: Hailee presents for routine follow up; prior to Daratumumab. Patient reports left leg sudden onset weakness last Tuesday while she was drawing labs at [facility]. She elected to not stay. This has been getting better. She thinks is another episode of mini stroke, and she thinks they are probably nothing to do about it she will call neurology for appointment. Otherwise she has no specific complaints. - Summary of Therapies Summary of Therapies: 1. Velcade/dexamethasone induction regimen with dexamethasone 20 mg started 07/08/2014, kappa lightchain decreased to 833 and 33 from 7000 [...] 6 mg and cyclophosphamide 300 mg IV xxsmwj0808/15/2015, developed grade 2 anemia, fatigue and grade [...] myeloma, refractory to Velcade dexamethasone and cyclophosphamide, couldnot tolerate Revlimid, progressed on Carfilzomib. -Ongoing brisk response to single agent Daratumumab. No overt adverse effects, the dizziness is notrelated to Daratumumab. -She prefers to space out [...] she just had a repeat echocardiogram, exam benigntoday. She has been taking aspirin, Plavix, and [...] for coordination of care (as documented) and ular-fn-sgoh counseling of patient and/or family. Dictated By: Margarito Buenrostro MD DD/ 5 Signed By: <Electronically signed by Margarito Buenrostro MD> 10/17/1937 [facility] Work Phone: 1([phone]) 593-210109-11-2019 Progress note Author Margarito Buenrostro [facility] July 25, 2019 8:31amNote Date/TimeSeptember 2018 8:30[facility] [place] [address] Hem/Onc Follow Up Note - OP Signed Patient: Hailee Trivedi MR#: [id number] : 1940 Acct:[id number] Age/Sex: 79 / F Type: REG RCR Copies to: Curt Clark MD~ Subjective Date/Time of Service: Date of Service: 07/25/2019 Time of Service: 08:30 Chief Complaint: Follow up appt prior to treatment HPI: Hailee presents for routine follow up; prior to Daratumumab. Patient reports doing fine, no specificcomplaints. - Summary of Therapies Summary of Therapies: 1. Velcade/dexamethasone induction regimen with dexamethasone 20 mg started 07/08/2014, kappa lightchain decreased to 833 and 33 from 7000 [...] 6 mg and cyclophosphamide 300 mg IV wafrfe9208/15/2015, developed grade 2 anemia, fatigue and grade [...] - Last 7 Days 07/18/19 08:54: Free Luckey LC, Quant 16.4, Free Lambda LC, Quant 10.9, Free Luckey/Lambda Ratio 1.50 07/18/19 08:54: PHA Creatinine Clear [id number], Sodium 139, Potassium 4.6, Chloride 110, CarbonDioxide 19.6 L, BUN 26 H, Creatinine 2.25 [...] % (Auto) 64.4, Lymph % (Auto) 27.6, [place] % (Auto) 6.8,Eos % (Auto) 0.7, Baso % (Auto) 0.5, Neut # (Auto) 4.2, Lymph # (Auto) 1.8, [place] # (Auto) 0.4, Eos # (Auto) 0.0,Baso # (Auto) 0.0, Nucleated RBC % (auto) 0.0 Assessment and Plan (1) Multiple myeloma in remission kappa light chain multiple myeloma, refractory to Velcade dexamethasone and cyclophosphamide, couldnot tolerate Revlimid, progressed on Carfilzomib. -Ongoing brisk response to single agent Daratumumab. No overt adverse effects, the dizziness is notrelated to Daratumumab. -She prefers to space out [...] for coordination of care (as documented) and kgxq-yj-prpz counseling of patient and/or family. Dictated By: Margarito Buenrostro MD DD/ 9 Signed By: <Electronically signed by Margarito Buenrostro MD> 07/25/19830 [facility] Work Phone: 1(765) [phone] Progress note Author Margarito Buenrostro [facility] June 13, 2019 8:37amNote Date/TimeJuly 2018 8:[facility] [place] [address] Hem/Onc Follow Up Note - OP Signed Patient: Hailee Trivedi MR#: [id number] : 1940 Acct:[id number] Age/Sex: 79 / F Type: REG RCR Copies to: Curt Clark MD~ Subjective Date/Time of Service: Date of Service: 06/13/2019 Time of Service: 08:34 Chief Complaint: Follow up appt prior to treatment - Diagnosis DIAGNOSIS: DIAGNOSIS: 1. 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 Motley by free light chain assay showing 7000 mg kappa, creatinine up to four and bone marrow biopsy in 07/05/2014 reveals 30% of cellularitywith 50% involvement, of cyclin D1 positive, normal [...] CVA 2018. SOCIAL HISTORY: Lives with in [place]. HPI: Hailee presents for routine follow up; prior to Daratumumab. Patient reports doing fine, no specificcomplaints. - Summary of Therapies Summary of Therapies: 1. Velcade/dexamethasone induction regimen with dexamethasone 20 mg started 07/08/2014, kappa lightchain decreased to 833 and 33 from 7000 [...] 6 mg and cyclophosphamide 300 mg IV [id number]/15/2015, developed grade 2 anemia, fatigue and grade [...] myeloma, refractory to Velcade dexamethasone and cyclophosphamide, couldnot tolerate Revlimid, progressed on Carfilzomib. -Ongoing brisk response to single agent Daratumumab. No overt adverse effects, the dizziness is notrelated to Daratumumab. -She prefers to space out [...] for coordination of care (as documented) and ztxq-ny-yfwa counseling of patient and/or family. Dictated By: Margarito Buenrostro MD DD/ 3 Signed By: <Electronically signed by Margarito Buenrostro MD> 06/13/1937 [facility] Work Phone: 1(370) 263-741706-19-2019 Progress note Author Margarito Buenrostro [facility] May 02, 2019 8:38amNote Date/TimeJune 2018 8:33[facility] [place] [address] Hem/Onc Follow Up Note - OP Signed Patient: Hailee Trivedi MR#: [id number] : 1940 Acct:[id number] Age/Sex: 78 / F Type: REG RCR Copies to: Curt Clark MD~ Subjective Date/Time of Service: Date of Service: 05/02/2019 Time of Service: 08:32 Chief Complaint: Follow up appt prior to treatment no new concerns - Diagnosis DIAGNOSIS: DIAGNOSIS: 1. 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 Motley by free light chain assay showing 7000 mg kappa, creatinine up to four and bone marrow biopsy in 07/05/2014 reveals 30% of cellularitywith 50% involvement, of cyclin D1 positive, normal [...] CVA 2017. SOCIAL HISTORY: Lives with in [place]. HPI: Hailee presents for routine follow up; prior to Daratumumab. Patient reports doing fine, no specificcomplaints. - Summary of Therapies Summary of Therapies: 1. Velcade/dexamethasone induction regimen with dexamethasone 20 mg started 07/08/2014, kappa lightchain decreased to 833 and 33 from 7000 [...] 6 mg and cyclophosphamide 300 mg IV opzjro4008/15/2015, developed grade 2 anemia, fatigue and grade [...] - Last 7 Days 04/25/19 11:05: Free Luckey LC, Quant 16.9, Free Lambda LC, Quant 10.8, Free Luckey/Lambda Ratio 1.56 04/25/19 11:05: WBC 6.5, Corrected WBC 6.5, RBC 3.81, Hgb 12.2, Hct 36.4, MCV 95.7, MCH 32.1, MCHC 33.6, RDW 13.7, Plt Count 182, MPV 9.9, Neut % (Auto) 65.0,Lymph % (Auto) 26.9, [place] % (Auto) 7.0, Eos % (Auto) 0.6, Baso % (Auto) 0.5, Neut # (Auto) 4.2, Lymph # (Auto) 1.8, [place] # (Auto) 0.5, Eos # (Auto) 0.0, Baso# (Auto) 0.0, Nucleated RBC % (auto) 0.1 Assessment and Plan (1) Multiple myeloma in remission kappa light chain multiple myeloma, refractory to Velcade dexamethasone and cyclophosphamide, couldnot tolerate Revlimid, progressed on Carfilzomib. -Ongoing brisk response to single agent Daratumumab. No overt adverse effects, the dizziness is notrelated to Daratumumab. -She wonders if we could [...] for coordination of care (as documented) and dlbl-ke-cwgh counseling of patient and/or family. Dictated By: Margarito Buenrostro MD DD/ 1 Signed By: <Electronically signed by Margarito Buenrostro MD> 05/02/19 0838 [facility] Work Phone: 1([phone]) [phone] Progress note Author Margarito Buenrostro [facility] March 07, 2019 10:22amNote Date/TimeApril 2018 10:19[facility] [place] [address] Hem/Onc Follow Up Note - OP Signed Patient: Hailee Trivedi MR#: [id number] : 1940 Acct:[id number] Age/Sex: 78 / F Type: REG RCR Copies to: Curt Clark MD~ Subjective Date/Time of Service: Date of Service: 03/07/2019 Time of Service: 08:16 Chief Complaint: Follow up appt prior to treatment - Diagnosis DIAGNOSIS: DIAGNOSIS: 1. 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 Motley by free light chain assay showing 7000 mg kappa, creatinine up to four and bone marrow biopsy in 07/05/2014 reveals 30% of cellularitywith 50% involvement, of cyclin D1 positive, normal [...] CVA 2018. SOCIAL HISTORY: Lives with in [place]. HPI: [place] presents for routine follow up; prior to Daratumumab. Patient reports doing fine, no specificcomplaints. - Summary of Therapies Summary of Therapies: 1. Velcade/dexamethasone induction regimen with dexamethasone 20 mg started 07/08/2014, kappa lightchain decreased to 833 and 33 from 7000 [...] 6 mg and cyclophosphamide 300 mg IV [id number]/15/2015, developed grade 2 anemia, fatigue and grade [...] Joseph Block M.D.01/02/2019 10:11 AM Dictation Location: [facility] Any impression(s) listed above is documentation that was entered by the reading physician into a diagnostic report(s) for Hailee Trivedi. I have reviewed the report(s) and am incorporating any findings in the treatment plan of this patient where applicable. Assessment and Plan (1) Multiple myeloma in remission kappa light chain multiple myeloma, refractory to Velcade dexamethasone and cyclophosphamide, couldnot tolerate Revlimid, progressed on Carfilzomib. -Ongoing brisk response to single agent Daratumumab. No overt adverse effects, the dizziness is notrelated to Daratumumab. -She will continue with her [...] for coordination of care (as documented) and namt-ky-yqvm counseling of patient and/or family. Dictated By: Margarito Buenrostro MD DD/ 1016 Signed By: <Electronically signed by Margarito Buenrostro MD> 03/07/19 1022 [facility] Work Phone: 1(259) 241-494902-27-2019 Progress note Author Margarito Buenrostro [facility] January 10, 2019 8:49amNote Date/TimeFebruary 2018 8:43[facility] [address] [address] Hem/Onc Follow Up Note - OP Signed Patient: Hailee Trivedi MR#: [id number] : 1940 Acct:[id number] Age/Sex: 78 / F Type: REG RCR Copies to: Curt Clark MD~ Subjective Date/Time of Service: Date of Service: 01/10/2019 Time of Service: 08:42 Chief Complaint: Follow up appt prior to treatment has had leg weakness - Diagnosis DIAGNOSIS: DIAGNOSIS: 1. 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 Motley by free light chain assay showing 7000 mg kappa, creatinine up to four and bone marrow biopsy in 07/05/2014 reveals 30% of cellularitywith 50% involvement, of cyclin D1 positive, normal [...] CVA 2018. SOCIAL HISTORY: Lives with in [place]. HPI: Hailee presents for routine follow up; prior to Cycle 19 Daratumumab. Patient had sudden onset weakness during blood draw for her labs last week, she was evaluated by ER, CT head at that point did notevidence of bleeding. 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 Her legs are little weak,otherwise she has no specific complaints. - Summary of Therapies Summary of Therapies: 1. Velcade/dexamethasone induction regimen with dexamethasone 20 mg started 07/08/2014, kappa lightchain decreased to 833 and 33 from 7000 [...] 6 mg and cyclophosphamide 300 mg IV [id number]/15/2015, developed grade 2 anemia, fatigue and grade [...] - Last 7 Days 01/02/19 09:35: Free Luckey LC, Quant 14.9, Free Lambda LC, Quant 8.9, Free Luckey/Lambda Ratio 1.67 H - Impressions ITS Impressions [...] Joseph Block M.D.01/02/2019 10:11 AM Dictation Location: [facility] Any impression(s) listed above is documentation that was entered by the reading physician into a diagnostic report(s) for Hailee Trivedi. I have reviewed the report(s) and am incorporating any findings in the treatment plan of this patient where applicable. Assessment and Plan (1) Multiple myeloma in remission kappa light chain multiple myeloma, refractory to Velcade dexamethasone and cyclophosphamide, couldnot tolerate Revlimid, progressed on Carfilzomib. -Ongoing brisk response to single agent Daratumumab. No overt adverse effects, the dizziness is notrelated to Daratumumab. -She will continue with her [...] for coordination of care (as documented) and idhw-uk-dqvz counseling of patient and/or family. Dictated By: Margarito Buenrostro MD DD/ Signed By: <Electronically signed by Margarito Buenrostro MD> 01/10/19 0849 [facility] Work Phone: 1([phone]) [phone] Progress note Author Anna Marie Mcnamara [facility] January 02, 2019 4:51pmNote Date/TimeFebruary 2018 4:51[place] [address] Event Note Signed Patient: Hailee Trivedi MR#: [id number] : 1940 Acct:[id number] Age/Sex: 78 / F Adm Date: 9 Loc: Room: Type: [facility] Attending Dr: Margarito Buenrostro MD Copies to: [...] sleep but denied any other complaints. Stroke alertwas called. Upon arrival patient was sitting in the chair with her eyes closed. She was responsive to verbal commands, she was able to tell her name and the place. She was oriented x2. She denied anycomplaints such as chest pain, shortness of breath, [...] by Anna Marie Mcnamara MD> 01/02/19 1651 [facility] Work Phone: 1([phone]) [phone] Progress note Author Margarito Buenrostro [facility] November 15, 2018 8:49amNote Date/TimeJan2018 8:45am[facility] [place] [address] Hem/Onc Follow Up Note - OP Signed Patient: Hailee Trivedi MR#: [id number] : 1940 Acct:[id number] Age/Sex: 78 / F Type: REG RCR Copies to: Curt Clark MD~ Subjective Date/Time of Service: Date of Service: 11/15/2018 Time of Service: 08:43 Chief Complaint: Follow up appt myloma no new concerns - Diagnosis DIAGNOSIS: DIAGNOSIS: 1. 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 Motley by free light chain assay showing 7000 mg kappa, creatinine up to four and bone marrow biopsy in 07/05/2014 reveals 30% of cellularitywith 50% involvement, of cyclin D1 positive, normal [...] CVA 2018. SOCIAL HISTORY: Lives with in [place]. HPI: Hailee presents for routine follow up; prior to Cycle 17 Daratumumab. Clinically,she looks good and is without complaints other than occasional right hip pain (present x several years); worse with activity and excessive walking, otherwise no new areas of pain. Denies headaches, fever/chills, recent/recurrent infections, chest pain, shortness of breath, weight loss, nausea/vomiting, abdominal pain,bowel or bladder problems, skin rash, or lower extremity edema. Energy levels have been good; denies excessive fatigue. - Summary of Therapies Summary of Therapies: 1. Velcade/dexamethasone induction regimen with dexamethasone 20 mg started 07/08/2014, kappa lightchain decreased to 833 and 33 from 7000 [...] 6 mg and cyclophosphamide 300 mg IV [id number]/15/2015, developed grade 2 anemia, fatigue and grade [...] physician into a diagnostic report(s) for Hailee Dayan marla. I have reviewed the report(s) and am incorporating any findings in the treatment plan of this patient where applicable. Assessment and Plan (1) Multiple myeloma in remission Status: Chronic kappa light chain multiple myeloma, refractory to Velcade dexamethasone and cyclophosphamide, couldnot tolerate Revlimid, progressed on Carfilzomib. -Ongoing brisk response to single agent Daratumumab. No overt adverse effects, the dizziness is notrelated to Daratumumab. -She will continue with her [...] for coordination of care (as documented) and hrng-fr-avmt counseling of patient and/or family. Dictated By: Margarito Buenrostro MD DD/ Signed By: <Electronically signed by Margarito Buenrostro MD> 11/15/18 0849 [facility] Work Phone: [phone]) [phone] Progress note Author Lisa Devine [facility] October 18, 2018 9:34amNote Date/TimeDece2017 9:30[facility] [place] [id number] Hem/Onc Follow Up Note - OP Signed Patient: Hailee Trivedi MR#: [id number] : 1940 Acct:[id number] Age/Sex: 78 / F Type: REG RCR Copies to: Curt Clark MD~ Subjective Date/Time of Service: Date of Service: 10/18/2018 Time of Service: 09:27 Chief Complaint: Patient here for one month follow up appointment for Multiple myeloma to be seen before C16 Daratumumab. - Diagnosis DIAGNOSIS: DIAGNOSIS: 1. 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 SOCIAL HISTORY: Lives with in [place]. HPI: Hailee presents for routine follow up; [...] with dexamethasone 20 mg started 07/08/2014, kappa lightchain decreased to 833 and 33 from 7000 [...] 6 mg and cyclophosphamide 300 mg IV ofyfxj9508/15/2015, developed grade 2 anemia, fatigue and grade [...] HAILEE IgA 65, HAILEE IgM 38, Free Luckey LC, Quant 15.8, Free Lambda LC, Quant 9.7, Free Luckey/Lambda Ratio 1.63 10/13/18 09:10: PHA Creatinine Clear [id number], Sodium 137, Potassium 4.1, Chloride 107, CarbonDioxide 21.9 L, BUN 27 H, Creatinine 2.11 [...] % (Auto) 64.5, Lymph % (Auto) 27.4, [place] % (Auto) 6.8, Eos % (Auto) 0.8, Baso % (Auto) 0.5, Neut # (Auto) 4.2, Lymph # (Auto) 1.8, [place] # (Auto) 0.4, Eos #(Auto) 0.1, Baso # (Auto) 0.0 - Impressions [...] myeloma, refractory to Velcade dexamethasone and cyclophosphamide, couldnot tolerate Revlimid, progressed on Carfilzomib. -Ongoing brisk [...] for coordination of care (as documented) and wkbx-kk-fivl counseling of patient and/or family. Dictated By: Lisa Devine DD/ 0927 Signed By: <Electronically signed by Lisa Devine> 10/18/18 0934 [facility] Work Phone: [phone]) [phone] Progress note Author Jacklyn Cornelius [facility] September 20, 2018 8:53amNote Date/TimeNov2017 8:43[facility] [place] [facility] [address] [address] Hem/Onc Follow Up Note - OP Signed Patient: Hailee Trivedi MR#: [id number] : 1940 Acct:[id number] Age/Sex: 78 / F Type: REG RCR Copies to: Curt Clark MD~ Subjective Date/Time of Service: Date of Service: 09/20/2018 Time of Service: 08:38 Chief Complaint: Multiple myeloma follow up appt day of treatment continues to have some dizziness - Diagnosis DIAGNOSIS: 1. 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 SOCIAL HISTORY: Lives with in [place]. HPI: Mrs. Bright is here today to [...] for a long time of dizziness with rapidmovements of her head and double vision when she looked to the extremes on the left. She recently had an evaluation by neurology on 11 August and I have extensively reviewed that note. The opinionis that this lady has had a large right cerebellar infarct on an MRI of the brain done at [place] under the direction of the neurologist. It is not totally clear when this infarction occurred as thepatient did not have acute symptoms just the chronic symptoms as above. However the impression on the scans and from the neurologist is that the event probably occurred perhaps just several weeks prio rto the neurology evaluation. 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 The patient is been taken off aspirin andnow is placed on Plavix per neurology. I think she probably does have ongoing follow-up with neurology. From the point of view of the multiple myeloma she appears to be very stable. She completely deniesany new areas of bone pain. She has some chronic pain in her left hip area which she believes is onthe basis of degenerative arthritis. She tolerates her [...] neurologic status on the basis of this recentinfarction. She has had no recent infections or need for antibiotics and she has no bleeding. She does complainof significant fatigue - Summary of Therapies Summary of Therapies: 1. Velcade/dexamethasone induction regimen with dexamethasone 20 mg started 07/08/2014, kappa lightchain decreased to 833 and 33 from 7000 [...] 6 mg and cyclophosphamide 300 mg IV serfij8708/15/2015, developed grade 2 anemia, fatigue and grade [...] - Last 7 Days 09/13/18 11:15: Free Luckey LC, Quant 15.3, Free Lambda LC, Quant 13.0, Free Luckey/Lambda Ratio 1.18 09/13/18 11:15: PHA Creatinine Clear [id number], Sodium 140, Potassium 4.6, Chloride 109, CarbonDioxide 23.6, BUN 27 H, Creatinine 2.42 H, Est GFR ( Amer) 24, Est GFR (Non-Af Amer) 19, Glucose 147 H, Calcium 8.6, Total Bilirubin 0.5, AST 20, ALT 16, Alkaline Phosphatase 86, Total Protein5.9 L, Albumin 3.6, Globulin 2.3, Albumin/Globulin Ratio 1.6 09/13/18 11:15: WBC 6.0, Corrected WBC 6.0, RBC 3.82, Hgb 12.4, Hct 37.6, MCV 98.2, MCH 32.5, MCHC 33.1, RDW 13.4, Plt Count 201, MPV 9.7, Neut % (Auto) 58.9, Lymph % (Auto) 30.7, [place] % (Auto) 8.9, Eos % (Auto) 1.2, Baso % (Auto) 0.3, Neut # (Auto) 3.5, Lymph # (Auto) 1.8, [place] # (Auto) 0.5, Eos #(Auto) 0.1, Baso # (Auto) 0.0 Parameters for the myeloma as of 09/13/2018 -quantitative kappa light chain 15.3, quantitative lambda light chain 13.0, kappa lambda ratio 1.18 which is a normal ratio. Total protein is 5.9 g with analbumin of 3.6 g Serum creatinine 2.42, BUN [...] most likely to be a result of heradvanced atherosclerotic cerebrovascular disease and unrelated to either the myeloma or the daratumumab. She is currently on Plavix and will be seeing neuro - (2) Multiple myeloma in remission Status: Chronic kappa light chain multiple myeloma, refractory to Velcade dexamethasone and cyclophosphamide, couldnot tolerate Revlimid, progressed on Carfilzomib. -Ongoing brisk [...] above. This probably has origin in her atheroscleroticdisease (10) HTN (hypertension) Qualifiers: Hypertension type: essential hypertension Qualified Code(s): I10 - Essential (primary) hypertension Status: Chronic She quit taking blood pressure medications due to low BP. Family physician is aware. - Chemo Plan Goal of Treatment: Palliative - Time Spent with Patient Greater than 50% of time spent with patient was for coordination of care (as documented) and ymau-qx-umbg counseling of patient and/or family. 25 - 35 minutes Dictated By: Jacklyn Cornelius MD DD/ 0838 Signed By: <Electronically signed by Jacklyn Cornelius MD> 09/20/18 0853 [facility] Work Phone: [phone] Progress note Author Margarito Buenrostro [facility] August 09, 2018 9:41amNote Date/TimeSeptember 2017 9:29am[facility] [address] [address] Hem/Onc Follow Up Note - OP Signed Patient: Hailee Trivedi MR#: [id number] : 1940 Acct:[id number] Age/Sex: 78 / F Type: REG RCR Copies to: Curt Clark MD~ Subjective Date/Time of Service: Date of Service: 08/09/2018 Time of Service: 09:28 Chief Complaint: Follow up appt on treatment multiple myeloma has infected toothbeing treated - Diagnosis DIAGNOSIS: 1. 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 SOCIAL HISTORY: Lives with in [place]. HPI: Mrs. Trivedi is seen as scheduled. She reports feeling dizzy for the past three days, she was evaluated by neurology as outpatient, she will have MRI and MRA tomorrow. Otherwise she feels fine. - Summary of Therapies Summary of Therapies: 1. Velcade/dexamethasone induction regimen with dexamethasone 20 mg started 07/08/2014, kappa lightchain decreased to 833 and 33 from 7000 [...] 6 mg and cyclophosphamide 300 mg IV [id number]/15/2015, developed grade 2 anemia, fatigue and grade [...] myeloma, refractory to Velcade dexamethasone and cyclophosphamide, couldnot tolerate Revlimid, progressed on Carfilzomib. -Ongoing brisk response to single agent Daratumumab. No overt adverse effects, doubt the dizziness is related to Daratumumab. -Would hold Dratumumab today, delay to next week. She is going to call us on Tuesday to review her MRI report (to be done in [place]). See in 5 weeks by SHAHID Bell, [...] for coordination of care (as documented) and ydwz-uc-teuk counseling of patient and/or family. 25 - 35 minutes Dictated By: Margarito Buenrostro MD DD/ 6 Signed By: <Electronically signed by Margarito Buenrostro MD> 08/09/18 0941 [facility] Work Phone: [phone] Progress note Author Margarito Buenrostro [facility] July 12, 2018 9:09amNote Date/TimeAugust 2017 8:33[facility] [place] [address] Hem/Onc Follow Up Note - OP Signed Patient: Hailee Trivedi MR#: [id number] : 1940 Acct:[id number] Age/Sex: 78 / F Type: REG RCR Copies to: Curt Clark MD~ Subjective Date/Time of Service: Date of Service: 07/12/2018 Time of Service: 08:33 Chief Complaint: Follow up appt treatment today - Diagnosis DIAGNOSIS: 1. 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 SOCIAL HISTORY: Lives with in [place]. HPI: Mrs. Trivedi is seen as scheduled. She developed numbness tingling involving left side of her body since 06/28/18. There is no focal neuro deficit. She had a CT of head, which did not report acute abnormality. Otherwise she feels fine.Her recent HbA1c was 7.4, she takes 28 units of insulin on day ofDaratumumab. - Summary of Therapies Summary of Therapies: 1. Velcade/dexamethasone induction regimen with dexamethasone 20 mg started 07/08/2014, kappa lightchain decreased to 833 and 33 from 7000 [...] 6 mg and cyclophosphamide 300 mg IV [id number]/15/2015, developed grade 2 anemia, fatigue and grade [...] potassium 4.2, creatinine 2.55, calcium 8.7 Free Luckey LC, Quant 14.0 mg/L (3.3-19.4) 06/28/18 10:45 Free Lambda LC, Quant 9.7 mg/L (5.7-26.3) 06/28/18 10:45 Free Luckey/Lambda Ratio 1.44 (0.26-1.65) 06/28/18 10:45 Total Bilirubin [...] myeloma, refractory to Velcade dexamethasone and cyclophosphamide, couldnot tolerate Revlimid, progressed on Carfilzomib. -Ongoing brisk [...] mg from 60 mg, plan to discontinue inthe future if she does ok with it. [...] for coordination of care (as documented) and eqcu-xr-cgoh counseling of patient and/or family. 25 - 35 minutes Dictated By: Margarito Buenrostro MD DD/ 0833 Signed By: <Electronically signed by Margarito Buenrostro MD> 07/12/18 0909 [facility] Work Phone: [phone] Progress note Author Margarito Buenrostro [facility] May 18, 2018 8:51amNote Date/TimeJuly 2017 8:44am[facility] [place] [id number] Hem/Onc Follow Up Note - OP Signed Patient: Hailee Trivedi MR#: [id number] : 1940 Acct:[id number] Age/Sex: 78 / F Type: REG RCR Copies to: Curt Clark MD~ Subjective Date/Time of Service: Date of Service: 05/18/2018 Time of Service: 08:42 Chief Complaint: weak today - Diagnosis DIAGNOSIS: 1. 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 SOCIAL HISTORY: Lives with in [place]. HPI: Mrs. Trivedi is seen as scheduled. She reports that she feels weak since Tuesday, primarily involving lower extremities. Has some short of breath, which she thinks is due to the hot weather. Otherwise she feels fine - Summary of Therapies Summary of Therapies: 1. Velcade/dexamethasone induction regimen with dexamethasone 20 mg started 07/08/2014, kappa lightchain decreased to 833 and 33 from 7000 [...] 6 mg and cyclophosphamide 300 mg IV [id number]/15/2015, developed grade 2 anemia, fatigue and grade [...] 7: 05/09/18 13:45 05/09/18 13:45 Labs: Free Luckey LC, Quant 15.0 mg/L (3.3-19.4) 05/09/18 13:45 Free Lambda LC, Quant 10.8 mg/L (5.7-26.3) 05/09/18 13:45 Free Luckey/Lambda Ratio 1.39 (0.26-1.65) 05/09/18 13:45 HbA1C 7.7 Assessment and Plan (1) Multiple myeloma in remission Status: Chronic kappa light chain multiple myeloma, refractory to Velcade dexamethasone and cyclophosphamide, couldnot tolerate Revlimid, progressed on Carfilzomib. -Ongoing brisk response to single agent Daratumumab. No overt AEs. She developed muscle weakness inthe last 4 days, doubt related to Dratumumab, [...] for coordination of care (as documented) and sxye-gm-trtb counseling of patient and/or family. Greater than 35 minutes Dictated By: Margarito Buenrostro MD DD/ 0889 Signed By: <Electronically signed by Margarito Buenrostro MD> 05/18/18 0851 [facility] Work Phone: [phone] Progress note Author Margarito Buenrostro [facility] April 19, 2018 1:08pmNote Date/TimeJune 2017 8:33[facility] [place] [address] Hem/Onc Follow Up Note - OP Signed Patient: Hailee Trivedi MR#: [id number] : 1940 Acct:[id number] Age/Sex: 77 / F Type: REG RCR Copies to: Curt Clark MD~ Subjective Date/Time of Service: Date of Service: 04/19/2018 Time of Service: 08:32 Chief Complaint: Follow up appt - Diagnosis DIAGNOSIS: 1. 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 SOCIAL HISTORY: Lives with in [place]. HPI: Mrs. Trivedi is seen as scheduled. She reports doing well, she denies fever or chills. Denies headaches. She has good appetite. - Summary of Therapies Summary of Therapies: 1. Velcade/dexamethasone induction regimen with dexamethasone 20 mg started 07/08/2014, kappa lightchain decreased to 833 and 33 from 7000 [...] 6 mg and cyclophosphamide 300 mg IV [id number]/15/2015, developed grade 2 anemia, fatigue and grade [...] myeloma, refractory to Velcade dexamethasone and cyclophosphamide, couldnot tolerate Revlimid, progressed on Carfilzomib. -Ongoing brisk [...] for coordination of care (as documented) and sfwg-bg-vyhe counseling of patient and/or family. 25 - 35 minutes Dictated By: Margarito Buenrostro MD DD/ 0832 Signed By: <Electronically signed by Margarito Buenrostro MD> 04/19/18 2497 [facility] Work Phone: 1([phone]) [phone] Progress note Author Margarito Buenrostro [facility] March 15, 2018 8:43amNote Date/TimeMay 2017 8:38am[facility] [address] [address] Hem/Onc Follow Up Note - OP Signed Patient: Hailee Trivedi MR#: [id number] : 1940 Acct:[id number] Age/Sex: 77 / F Type: REG RCR Copies to: Curt Clark MD, Patrick MD~ Subjective Date/Time of Service: Date of Service: 03/15/2018 Time of Service: 08:37 Chief Complaint: Follow up appt - Diagnosis DIAGNOSIS: 1. 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 SOCIAL HISTORY: Lives with in [place]. HPI: Mrs. Trivedi is seen as scheduled. She reports had lithotripsy, then she developed pain involving bilateral wrist, elbows, and shoulder, primarily in themuscle. She went to [place] ER, took x-rays, no acute process was seen. The pain has gotten much better, she denies fever or chills. Denies headaches. She has good appetite. - Summary of Therapies Summary of Therapies: 1. Velcade/dexamethasone induction regimen with dexamethasone 20 mg started 07/08/2014, kappa lightchain decreased to 833 and 33 from 7000 [...] 6 mg and cyclophosphamide 300 mg IV [id number]/15/2015, developed grade 2 anemia, fatigue and grade [...] Albumin 3.8 gm/dL (3.2-5.5) 03/08/18 11:50 Free Luckey LC, Quant 18.6 mg/L (3.3-19.4) 03/08/18 11:50 Free Lambda LC, Quant 12.5 mg/L (5.7-26.3) 03/08/18 11:50 Free Luckey/Lambda Ratio 1.49 (0.26-1.65) 03/08/18 11:50 Assessment and Plan (1) Multiple myeloma in remission Status: Chronic kappa light chain multiple myeloma, refractory to Velcade dexamethasone and cyclophosphamide, couldnot tolerate Revlimid, progressed on Carfilzomib. -Ongoing brisk [...] system through steroids, will delay Daratumumab to nextweek, orders placed. Continue [id number] bid for Herpes Zoster prophylaxis. See in [...] for coordination of care (as documented) and huxi-bh-rkck counseling of patient and/or family. 25 - 35 minutes Dictated By: Margarito Buenrostro MD DD/ Signed By: <Electronically signed by Margairto Buenrostro MD> 03/15/18 0843 [facility] Work Phone: 1([phone]) 701-960703-07-2018 Progress note Author Margarito Buenrostro [facility] January 18, 2018 10:51amNote Date/TimeMar2017 10:44[facility] [place] [address] Hem/Onc Follow Up Note - OP Signed Patient: Hailee Trivedi MR#: [id number] : 1940 Acct:[id number] Age/Sex: 77 / F Type: REG RCR Copies to: Curt Clark MD~ Subjective Date/Time of Service: Date of Service: 01/18/2018 Time of Service: 10:42 Chief Complaint: Follow up appt - Diagnosis DIAGNOSIS: 1. 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 SOCIAL HISTORY: Lives with in [place]. HPI: Mrs. Trivedi is seen as scheduled. She reports double vision has improved after a triple to [place]. Her hearing is improving too. Fatigued as usual, denies fever or chills. Denies headaches. She hasgood appetite. - Summary of Therapies Summary of Therapies: 1. Velcade/dexamethasone induction regimen with dexamethasone 20 mg started 07/08/2014, kappa lightchain decreased to 833 and 33 from 7000 [...] 6 mg and cyclophosphamide 300 mg IV [id number]/15/2015, developed grade 2 anemia, fatigue and grade [...] 7: 01/10/18 10:13 01/10/18 10:13 Labs: Free Luckey LC, Quant 14.2 mg/L (3.3-19.4) 01/10/18 10:13 Free Lambda LC, Quant 11.4 mg/L (5.7-26.3) 01/10/18 10:13 Free Luckey/Lambda Ratio 1.25 (0.26-1.65) 01/10/18 10:13 Assessment and Plan (1) Multiple myeloma in remission Status: Chronic kappa light chain multiple myeloma, refractory to Velcade dexamethasone and cyclophosphamide, couldnot tolerate Revlimid, progressed on Carfilzomib. -Ongoing brisk [...] for coordination of care (as documented) and pmeq-as-vfya counseling of patient and/or family. 25 - 35 minutes Dictated By: Margarito Buenrostro MD DD/ 1042 Signed By: <Electronically signed by Margarito Buenrostro MD> 01/18/18 1051 [facility] Work Phone: [phone]) 240-477101-10-2018 Progress note Author Margarito Buenrostro [facility] November 23, 2017 10:25amNote Date/TimeJan2017 10:19[facility] [place] [address] Hem/Onc Follow Up Note - OP Signed Patient: Hailee Trivedi MR#: [id number] : 1940 Acct:[id number] Age/Sex: 77 / F Type: REG RCR Copies to: Curt Clark MD~ Subjective Date/Time of Service: Date of Service: 11/23/2017 Time of Service: 10:18 Chief Complaint: Follow up appt - Diagnosis DIAGNOSIS: 1. 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 She had double vision thepast Tuesday and Tuesday, improving. Fatigued as usual, denies fever or chills. Denies headaches. Shehas good appetite. - Summary of Therapies Summary of Therapies: 1. Velcade/dexamethasone induction regimen with dexamethasone 20 mg started 07/08/2014, kappa lightchain decreased to 833 and 33 from 7000 [...] 6 mg and cyclophosphamide 300 mg IV ghmvzg2108/15/2015, developed grade 2 anemia, fatigue and grade [...] 7: 11/16/17 08:35 11/16/17 08:35 Labs: Free Luckey LC, Quant 17.9 mg/L (3.3-19.4) 11/16/17 08:35 Free Lambda LC, Quant 10.5 mg/L (5.7-26.3) 11/16/17 08:35 Free Luckey/Lambda Ratio 1.70 (0.26-1.65) H 11/16/17 08:35 Assessment and Plan (1) Multiple myeloma in remission Status: Chronic kappa light chain multiple myeloma, refractory to Velcade dexamethasone and cyclophosphamide, couldnot tolerate Revlimid, progressed on Carfilzomib. -Ongoing brisk response to single agent Daratumumab. No overt AEs. -Results discussed, renal function and anemia stable. Free light chain level stays low. Given the improvement of her dizzy spells, would like to resume Daratumumab. -She will go to [place] in December, would like to resume therapy [...] for coordination of care (as documented) and tofh-gg-rbjn counseling of patient and/or family. 25 - 35 minutes Dictated By: Margarito Buenrostro MD DD/ 1018 Signed By: <Electronically signed by Margarito Buenrostro MD> 11/23/17 1025 [facility] Work Phone: 1(407) 660-438412-06-2017 Progress note Author Margarito Buenrostro [facility] October 19, 2017 9:19amNote Date/TimeDece2016 8:42[facility] [place] [address] Hem/Onc Follow Up Note - OP Signed Patient: Hailee Trivedi MR#: [id number] : 1940 Acct:[id number] Age/Sex: 77 / F Type: REG RCR Copies to: Curt Clark MD, Jeffrey DO~ Subjective Date/Time of Service: Date of Service: 10/19/2017 Time of Service: 08:42 Chief Complaint: Follow up appt - Diagnosis DIAGNOSIS: 1. 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 She still has dizzy spellsin the last couple of weeks, plan is to monitor for now. She is fine today. Fatigued as usual, denies fever or chills. Denies headaches. She has good appetite. She noticed worsening numbness/tinglingin feet when cross legs. - Summary of Therapies Summary of Therapies: 1. Velcade/dexamethasone induction regimen with dexamethasone 20 mg started 07/08/2014, kappa lightchain decreased to 833 and 33 from 7000 [...] 6 mg and cyclophosphamide 300 mg IV fkokbg0108/15/2015, developed grade 2 anemia, fatigue and grade [...] 7: 10/14/17 13:43 10/14/17 13:43 Labs: Free Luckey LC, Quant 15.6 mg/L (3.3-19.4) 10/14/17 13:43 Free Lambda LC, Quant 9.4 mg/L (5.7-26.3) 10/14/17 13:43 Free Luckey/Lambda Ratio 1.66 (0.26-1.65) H 10/14/17 13:43 Assessment and Plan (1) Multiple myeloma in remission Status: Chronic kappa light chain multiple myeloma, refractory to Velcade dexamethasone and cyclophosphamide, couldnot tolerate Revlimid, progressed on Carfilzomib. -Ongoing brisk [...] for coordination of care (as documented) and admk-wu-paio counseling of patient and/or family. less than 15 minutes Dictated By: Margarito Buenrostro MD DD/ Signed By: <Electronically signed by Margarito Buenrostro MD> 10/19/17 0919 [facility] Work Phone: 1(540) 912-881811-08-2017 Progress note Author Margarito Buenrostro [facility] September 21, 2017 8:54amNote Date/TimeSeptember 21, 2017 8:50[facility] [place] [address] Hem/Onc Follow Up Note - OP Signed Patient: Hailee Trivedi MR#: [id number] : 1940 Acct:[id number] Age/Sex: 77 / F Type: REG RCR Copies to: Curt Clark MD, Jeffrey DO~ Subjective Date/Time of Service: Date of Service: 09/21/2017 Time of Service: 08:48 Chief Complaint: Follow up appt - Diagnosis DIAGNOSIS: 1. 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 She is finetoday. Her physical stress of gettingbetter, denies fever or chills. Denies headaches. She has goodappetite, gainingweight. She noticed worsening numbness/tingling in feet when cross legs. - Summary of Therapies Summary of Therapies: 1. Velcade/dexamethasone induction regimen with dexamethasone 20 mg started 07/08/2014, kappa lightchain decreased to 833 and 33 from 7000 [...] 6 mg and cyclophosphamide 300 mg IV vqtodn7308/15/2015, developed grade 2 anemia, fatigue and grade [...] 7: 09/15/17 10:45 09/15/17 10:45 Labs: Free Luckey LC, Quant 14.4 mg/L (3.3-19.4) 09/15/17 10:45 Free Lambda LC, Quant 9.3 mg/L (5.7-26.3) 09/15/17 10:45 Free Luckey/Lambda Ratio 1.55 (0.26-1.65) 09/15/17 10:45 Assessment and Plan (1) Multiple myeloma in remission Status: Chronic kappa light chain multiple myeloma, refractory to Velcade dexamethasone and cyclophosphamide, couldnot tolerate Revlimid, progressed on Carfilzomib. -Ongoing brisk [...] for coordination of care (as documented) and wfvb-ht-vpsb counseling of patient and/or family. 25 - 35 minutes Dictated By: Margarito Buenrostro MD DD/ Signed By: <Electronically signed by Margarito Buenrostro MD> 09/21/17 0854 [facility] Work Phone: 1([phone]) 764-156109-13-2017 Progress note Author Margarito Buenrostro [facility] July 27, 2017 8:53amNote Date/TimeSeptember 2016 8:46[facility] [place] [address] Hem/Onc Follow Up Note - OP Signed Patient: Hailee Trivedi MR#: [id number] : 1940 Acct:[id number] Age/Sex: 77 / F Type: REG RCR cc: Curt Clark MD, Jeffrey DO Qadir, Abdul MD~ Subjective Date/Time of Service: Date of Service: 07/27/2017 Time of Service: 08:44 Chief Complaint: Follow up appt - Diagnosis DIAGNOSIS: 1. 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 Her physical stress of getting better,denies fever or chills. Denies headaches. She has goodappetite, gaining weight. She reports sudden hearing loss in left ear, evaluatedby ENT. She denies numbness/tingling in feet or hands. - Summary of Therapies Summary of Therapies: 1. Velcade/dexamethasone induction regimen with dexamethasone 20 mg started 07/08/2014, kappa lightchain decreased to 833 and 33 from 7000 [...] 6 mg and cyclophosphamide 300 mg IV sygcbq3508/15/2015, developed grade 2 anemia, fatigue and grade [...] 1. Daratumumab 03/17/2016-. -03/17/16-05/05/16, weekly. -05/19/16-08/25/16, biweekly. -11/9/16-, every 4 weeks. 2. VitB12 injections, monthly. [...] Chem 7: 07/21/17 08:50 07/21/17 08:50 Labs: Luckey and lambda light chain levels low, and stable Assessment and Plan (1) Multiple myeloma in remission Status: Chronic kappa light chain multiple myeloma, refractory to Velcade dexamethasone and cyclophosphamide, couldnot tolerate Revlimid, progressed on Carfilzomib. -Ongoing brisk [...] for coordination of care (as documented) and nqwv-ym-xkwb counseling of patient and/or family. 25 - 35 minutes Dictated By: Margarito Buenrostro MD DD/ Signed By: <Electronically signed by Margarito Buenrostro MD> 07/27/17 0888 [facility] Work Phone: Evaluation + Plan note Future Appointments Appointment Date:01/10/2023 10:45:00 AM Scheduled Provider:Tyree PARK MD Location:[facility] Appointment Type:URO Office Visit [facility] evaluation + Plan note Future Appointments Appointment Date:01/09/2024 08:45:00 AM Scheduled Provider:Tyree PARK MD Location:[facility] Appointment Type:URO Office Visit Diagnostic Tests Pending * Urine Cytology ([facility]) 01/10/23 [facility] evalnaifwp noteNo [employer] Other evaluyqfji note* Diagnosis Onset Date Resolution Status Cerebellar stroke, acute acuteCKD (chronic kidney disease) stage 4, GFR 15-29 ml/minacuteDiabetes mellitus type II, controlledacuteDizzinessacuteHyperlipidemiaacuteMultiple myelomaacuteTransient left leg weaknessacuteAnemiachronicAtrial fibrillation exkhllkT38 deficiency anemiachronicHearing losschronicHTN (hypertension)chronic 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chronicMultiple myeloma in remissionchronic Steroid-induced hyperglycemiachronicUnsteady gaitresolved [facility] Work Phone: Evaluation note* Diagnosis Persistent atrial fibrillation with RVR (CMS/HCC)- Primary Aortic valve regurgitation, nonrheumatic Ascending aorta dilation (CMS/HCC) Thoracic aneurysm without mention of rupture Essential hypertension Unspecified essential hypertension Pulmonary hypertension (CMS/HCC) Other chronic pulmonary heart diseases Stage 3a chronic kidney disease (CMS/HCC) documented in this encounter [facility] Work Phone: Evaluation note* Diagnosis Aortic valve regurgitation, nonrheumatic Ascending aorta dilation (CMS/HCC) Thoracic aneurysm without mention of rupture Pulmonary hypertension (CMS/HCC) Other chronic pulmonary heart diseases documented in this encounter [facility] Work Phone: Evaluation note* Diagnosis Aortic valve regurgitation, nonrheumatic Ascending aorta dilation (CMS/HCC) Thoracic aneurysm without mention of rupture Pulmonary hypertension (CMS/HCC) Other chronic pulmonary heart diseases documented in this encounter [facility] Work Phone: Evaluation note* Diagnosis Onset Date Resolution Status Cerebellar stroke, acute acuteCKD (chronic kidney disease) stage 4, GFR 15-29 ml/minacuteDiabetes mellitus type II, controlledacuteHyperlipidemiaacuteAtrial fibrillationchronic HTN (hypertension)chronic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chronicMultiple myeloma in remissionchronicUnsteady gaitresolvedCKD (chronic kidney disease) stage 4, GFR 15-29 ml/zfkojmdaFhewbfzukpawoarpnccGGS-LFHE-[id number] acidemiaacuteMultiple myelomaacuteSecondary hyperparathyroidism of renal origin acuteType 2 diabetes mellitus with chronic kidney diseaseMad[facility] Work Phone: Evaluation note* Diagnosis Onset Date Resolution Status CKD (chronic kidney disease) stage 4, GF R 15-29 ml/min axukvZqguftidthnhwrybzilFMX-DRPS-[id number] acidemiaacuteMultiple myelomaacuteSecondary hyperparathyroidism of renal originacuteType 2 diabetes mellitus with chronic kidney diseaseacuteCerebellar stroke, acuteacuteCKD (chronic kidney disease) stage 4, GFR 15-29 ml/minacuteDiabetes mellitus type II, controlledacuteHyperlipidemiaacuteAtrial fibrillationchronicHTN (hypertension)chronic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chronicMultiple myeloma in remissionchronicUnsglenbeigh hospitaly [facility] Work Phone: Evaluation note* Diagnosis Onset Date Resolution Status Multiple myeloma acuteCerebellar stroke, acuteacuteCKD (chronic kidney disease) stage 4, GFR 15- 29 ml/minacuteDiabetes mellitus type II, controlledacuteHyperlipidemiaacute Atrial fibrillationchronicHTN (hypertension)chronic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chronicMultiple myeloma in remissionchronicUnsteady gaitresolvedUTI (urinary tract infection)[facility] Work Phone: Evaluation note* Diagnosis Essential hypertension- [...] Never smoked tobacco documented in this encounter [facility] Work Phone: Evaluation note* Diagnosis Onset Date Resolution Status 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 acuteUTI (urinary tract infection)acuteCerebellar stroke, acuteacuteCKD (chronic kidney disease) stage 4, GFR 15-29 ml/minacuteDiabetes mellitus type II, controlledacuteHyperlipidemiaacuteAtrial fibrillationchronicHTN (hypertension) chronic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chronicMultiple myeloma in remission chronicUnsteady gaitresolved [facility] Work Phone: Evaluation note* Diagnosis Onset Date Resolution Status 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 acuteUTI (urinary tract infection)acuteCKD (chronic kidney disease) stage 4, GFR 15-29 ml/minacuteDepressionacuteHTN (hypertension)chronicMultiple myeloma in remissionchronicCerebellar stroke, acuteacuteCKD (chronic kidney disease) stage 4, GFR 15-29 ml/minacuteDiabetes mellitus type II, controlledacuteHyperlipidemia acuteAtrial fibrillationchronicHTN (hypertension)chronic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chronicMultiple myeloma in remissionchronicUnsteady gaitresolved CKD (chronic kidney disease) stage 4, GFR 15-29 ml/minacuteHyperkalemiaacute LtrydslifjiagpxobjgTMI-TDRI-[id number] acidemiaacuteMultiple myeloma acuteSecondary hyperparathyroidism of renal originacuteType 2 diabetes mellitus with chronic kidney diseaseacute [facility] Work Phone: Evaluation note* Diagnosis Onset Date Resolution Status CKD (chronic kidney disease) stage 4, GF R 15-29 ml/min acuteDepressionacuteHTN (hypertension)chronicMultiple myeloma in remission chronicCKD (chronic kidney disease) stage 4, GFR 15-29 ml/minacuteHyperkalemia zcrvuAhssferbhbhomtglkwkPLC-FRYJ-[id number] acidemiaacuteMultiple myelomaacuteSecondary hyperparathyroidism of renal originacuteType 2 diabetes mellitus with chronic kidney diseaseacuteCerebellar stroke, acuteacuteCKD (chronic kidney disease) stage 4, GFR 15-29 ml/minacuteDiabetes mellitus type II, controlledacuteHyperlipidemiaacuteAtrial fibrillationchronicHTN (hypertension)chronic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chronicMultiple myeloma in remissionchronicUnsteady gaitresolved [facility] Work Phone: Evaluation note* Diagnosis Onset Date Resolution Status CKD (chronic kidney disease) stage 4, GF R 15-29 ml/min dmvdwWbrwdxuoitagxutkzNqlfjdlsnhxeezaogirGUG-VYDS-[id number] acidemiaacuteMultiple myelomaacuteSecondary hyperparathyroidism of renal origin acuteType 2 diabetes mellitus with chronic kidney diseaseacuteCerebellar stroke, acuteacuteCKD (chronic kidney disease) stage 4, GFR 15-29 ml/minacuteDiabetes mellitus type II, controlledacuteHyperlipidemiaacuteAtrial fibrillationchronic HTN (hypertension)chronic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chronicMultiple myeloma in remissionchronicUnsteady gaitresolvedDiabetic neuropathyacuteHTN (hypertension)chronicChest painacuteCKD (chronic kidney disease) stage 4, GFR 15-29 ml/minacuteDiabetes mellitus type II, controlledacuteDyspneaacute HyperlipidemiaacuteHypomagnesemiaacuteWeaknessacuteAtrial fibrillationchronicHTN (hypertension)[facility] Work Phone: Evaluation note* Diagnosis Onset Date Resolution Status CKD (chronic kidney disease) stage 4, GF R 15-29 ml/min cmwghZoubiqajvsifqlbqlZphbfhoruizzgtvpsygUOJ-YBNW-[id number] acidemiaacuteMultiple myelomaacuteSecondary hyperparathyroidism of renal origin acuteType 2 diabetes mellitus with chronic kidney diseaseacuteCerebellar stroke, acuteacuteCKD (chronic kidney disease) stage 4, GFR 15-29 ml/minacuteDiabetes mellitus type II, controlledacuteHyperlipidemiaacuteAtrial fibrillationchronic HTN (hypertension)chronic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chronicMultiple myeloma in remissionchronicUnsteady gaitresolvedDiabetic neuropathyacuteHTN (hypertension)chronicChest painacuteCKD (chronic kidney disease) stage 4, GFR 15-29 ml/minacuteDiabetes mellitus type II, controlledacuteDiabetic neuropathy acuteDyspneaacuteHyperlipidemiaacuteHypomagnesemiaacuteImpaired mobility and activities of daily livingacuteWeaknessacuteAtrial fibrillationchronicHTN (hypertension)chronicMultiple myeloma in remissionchronic [facility] Work Phone: Evaluation note* Diagnosis Persistent [...] Never smoked tobacco documented in this encounter 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 Work Phone: Evaluation note* Diagnosis Cerebellar infarct (CMS/HCC)- Primary Unspecified cerebral artery occlusion with cerebral infarction documented in this encounter [facility] HealthcareEvaluation note* Diagnosis Essential hypertension- Primary Unspecified essential hypertension Persistent atrial fibrillation with RVR (Multi) Atrial flutter, unspecified type (Multi) documented in this encounter 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 Work Phone: History general Narrative - Reported* Type Description Date Medical History HYPERTENSION Medical HistoryKIDNEY STONESMedical HistoryMULTIPLE MYELOMAMedical HistoryDM II Medical HistorySTAGE 4 CHRONIC KIDNEY DISEASEMedical HistoryHYPERLIPIDEMIA Medical HistoryCVA OF CEREBELLUMMedical HistoryKIDNEY STONESSurgical History cholecystectomySurgical Historytotal cleeudojjahi2325Sejwizhv History hemorrhoidectomySurgical HistoryCHEMO/2015Surgical Historylithotripsey03/09/18 Surgical OtojroyUxyajijevqvn0-59-7382Ldjggdvu Historyleft kidney ulnyi9-36-58 Surgical HistoryLITHOTRIPSEY01/24/2020Surgical HistorySTENT REMOVAL03/03/2021 Surgical HistoryKIDNEY STONES X 3 WITH LASER02/19/2021Hospitalization HistorySEE ABOVE SURGERYHospitalization HistoryFR-DEHYDRATION/[id number] magnify360 Other History general Narrative - Reported* Type Description Date Medical History HYPERTENSION Medical HistoryKIDNEY STONESMedical HistoryMULTIPLE MYELOMAMedical HistoryDM II Medical HistorySTAGE 4 CHRONIC KIDNEY DISEASEMedical HistoryHYPERLIPIDEMIA Medical HistoryCVA OF CEREBELLUMMedical HistoryKIDNEY STONESSurgical History cholecystectomySurgical Historytotal xrfnycvwkjly6818Voitnxcr History hemorrhoidectomySurgical HistoryCHEMO/2015Surgical Historylithotripsey03/09/18 Surgical DjnpjgjCctdloptqwnt6-32-3531Uglbogdc Historyleft kidney ofnng0-92-07 Surgical HistoryLITHOTRIPSEY01/24/2020Surgical HistorySTENT REMOVAL03/03/2021 Surgical HistoryKIDNEY STONES X 3 WITH LASER02/19/2021Hospitalization HistorySEE ABOVE SURGERYHospitalization HistoryFR-DEHYDRATION/[id number] VtoxpjiMBBNS23/2021 magnify360 Other hisShopular general Narrative - Reported* Type Description Date Medical History HYPERTENSION Medical HistoryKIDNEY STONESMedical HistoryMULTIPLE MYELOMAMedical HistoryDM II Medical HistorySTAGE 4 CHRONIC KIDNEY DISEASEMedical HistoryHYPERLIPIDEMIA Medical HistoryCVA OF CEREBELLUMMedical HistoryKIDNEY STONESMedical HistoryCOVID 1-0-1820Fvzsusna HistorycholecystectomySurgical Historytotal uysmieseugpa1212 Surgical HistoryhemorrhoidectomySurgical HistoryCHEMO/2015Surgical History lithotripsey03/09/18urgical EuxlmiiEzldflorevtm8-39-1855Hdkdmwyo Historyleft kidney urxkh4-26-36Lprwcrsd HistoryLITHOTRIPSEY01/24/2020Surgical HistorySTENT REMOVAL03/03/2021urgical HistoryKIDNEY STONES X 3 WITH LASER02/19/2021 Hospitalization HistorySEE ABOVE SURGERYHospitalization History [facility] [place]-DEHYDR[place]/[id number] AudqjarKCTZL57/2021 magnify360 Other History of Present illness Narrative* Patient [...] recurrence. She did have noninvasive assessment at [facility], which was negative. Couple of years [...] of change in cardiac status or symptoms -[facility]-Arabella Gillis DO Work Phone: History of Present illness [...] recurrence. She did have noninvasive assessment at [facility], which was negative. Couple of years [...] of change in cardiac status or symptoms -[facility]Arabella 250 DO Work Phone: Hospital course Narrative No data available for this section [facility] InstructionsNot on filedocumented in this encounter [facility]InstructionsNot on filedocumented in this encounter [facility] SystemProgress note No data available for this section [facility] progress note Author Misti Connolly [facility] January 11, 2023 11:19amNote Date/TimeFebruary 2022 10:42[facility] at [address] [address] Hem/Onc Follow Up Note - OP Signed Patient: Hailee Trivedi MR#: [id number] : 1940 Acct:[id number] Age/Sex: 82 / F Type: REG RCR [...] normal. Switched to oral Vit B12 in 04/2019.Repeat B12 level in 07/2019 was 900 and 506 in 11/02. -- Continue oral vitamin B12 at 1000mcg daily. L leg weakness New since end of March 2022- this is being managed by her neurologist. Head CT done March 2022 at [facility] without new/acute findings. Follow Up Instructions: cbc, cmp, spep, hailee, flc, immunoglobulins in 3 months and 6 months follow-up in 6 months - History of Present Illness Chief Complaint: Patient is here today for a follow up 5 month follow up visit for multiple myelomaand go over labs HPI: Hailee is a pleasant lady with Luckey light chain multiple myeloma diagnosed by Dr. Motley in 2014by free light chain assay showing 7000 mg [...] been trying to transfer her care to [place] but they are not up [...] 01/18/22 Seen via video visit with Dr. Cohi. 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 Nasalmucosa was non-erythematous. Mucous membranes were moist. NECK: [...] for coordination of care (as documented) and yvpb-oz-inzj counseling of patient and/or family. [facility] - Medical History Medical History: [...] 01/19/22 09:00 KB (Rec: 01/19/22 09:01 KB [id number]) Distress Screening Distress screening follow up: Will follow with patient for any needs at next visit. Anxious about making next appointment time. - Lab Results Diagram of Most Recent CBC and CMP 01/04/23 14:45 01/04/23 14:45 Labs - Last 7 Days 01/04/23 14:45: Free Luckey LC, Quant 26.9 H, Free Lambda LC, Quant 12.0, Free Luckey/Lambda Ratio 2.24 H 01/04/23 14:45: PHA Creatinine Clear 19.82, Sodium 137, Potassium 4.3, Chloride 108, Carbon Kixwepd63.9 L, Anion Gap 11.4, BUN 33 H, [...] % (Auto) 54.8, Lymph % (Auto) 34.1, [place] % (Auto) 8.0, Eos % (Auto) 2.3, Baso % (Auto) 0.8, Nucleat RBC Rel Count 0.0, Neut # (Auto) 4.9, Lymph # (Auto) 3.0, [place] # (Auto) 0.7, Eos # (Auto) 0.2, [...] solution (Oracit) 10 ml PO QID 06/16/21 [HistoryConfirmed 01/11/23] Dictated By: Misti Connolly APRN DD/ 1042 Signed By: <Electronically signed by RAMAKRISHNA Connolly> 01/11/23 1119 [facility] Work Phone: Progress note Author Misti Connolly [facility] January 31, 2024 1:03pmNote Date/TimeMarch 2023 2:56pmW[facility]'S [facility] [place] [address] Cancer Center Note Signed Patient: Hailee Trivedi MR#: [id number] : 1940 Acct:[id number] Age/Sex: 83 / F Type: DEP AMB [...] well. Within one month of starting irma [id number] she had 95% reduction in K light [...] When she left the visit i discussed continuingher daratumumab every 4 weeks. Upon further review when i wrote the note a few days later i realized she had not had ddaratumumab since june 2022 and her labs are basically stable. I called her this morning (07/23/23) and told her that she does not need to get daratumab. and we will MONITOR WIHTOUTTHERAPY. 2023 paraprotein evaluation stable overall. She continues [...] normal. Switched to oral Vit B12 in 04/2019.Repeat B12 level in 07/2019 was 900 and 506 in 11/02. -- Continue oral vitamin B12 at 1000mcg daily. L leg weakness New since end of March 2022- this is being managed by her neurologist. Head CT done March 2022 at [facility] without new/acute findings. January 2024 ok overall, [...] HPI Hailee 83 year old female with Luckey light chain multiple myeloma diagnosed by Dr. Motley in 2014by free light chain assay showing 7000 mg [...] borja was placed in the hospital. Dr. Amber ernst has given her bactrim which she has not taken yet. LAST DARATUMUMAB WAS JUNE 2022. There was some confusion on my part at todays visit. When she left the visit i discussed continuingher daratumumab every 4 weeks. Upon further review when i wrote the note a few days later i realized she had not had ddaratumumab since june 2022 and her labs are basically stable. I called her this morning (07/23/23) and told her that she does not need to get daratumab. and we will MONITOR WIHTOUTTHERAPY. 01/27/24 she continues to do well, no new concerns energy is stable she denies any new bone pain continues to follow closely with Dr. Suarez for her CKD. She has still been able to maintain withoutdialysis labs are stable overall Intake Vitals/Pain Assessment [...] a day; Note: Source Status: Taking; Provider: Donald Ace rivaroxaban (Xarelto) 15 mg PO DAILY [...] for multiple myeloma and go over labs [facility] Medical History Medical History (Updated [...] light bilaterally, anicteric sclere without conjunctival pallor. Nasalmucosa was non-erythematous. Mucous membranes were moist. LYMPHATIC: [...] <Electronically signed by RAMAKRISHNA Connolly> 01/31/24 1303 [facility] Work Phone: Rezsnm for referral (narrative)* Consultation (Routine) - AuthorizedSpecialtyDiagnoses / ProceduresReferred By Contact Referred To ContactCardiology Diagnoses Persistent atrial fibrillation with RVR (Multi) Procedures Follow Up In Cardiology Elicia Rhodes MD [address] [facility] [address] [place] [address] Elicia Rhodes MD [address] [facility] [address] [place] [address] Referral IDStatusReasonStart DateExpiration DateVisits RequestedVisits [id number]/4/20246/ [facility] Work Phone: Repizt for referral (narrative)No reason for referral information availableTrihealth Bethesda North Hospital Work Phone: Summary Purpose Family History No Family History Records FoundUnknown Family Member Name Dates Details Family history of cerebrovas cular accident (CVA): Mother, Sister(V17.1, Z82.3) Status:ActiveFamily history of hypertension: Mother, Sister(V17.49, Z82.49) Status:ActiveFamily history of diabetes mellitus: Mother, Sister(V18.0, Z83.3) Status:ActiveFamily history of cardiac disorder: Mother, Sister(V17.49, Z82.49) Status:Active Unknown Family Member Name Dates Details Family history of cerebrovas cular accident (CVA): Mother, Sister(V17.1, Z82.3) Status:ActiveFamily history of hypertension: Mother, Sister(V17.49, Z82.49) Status:ActiveFamily history of diabetes mellitus: Mother, Sister(V18.0, Z83.3) Status:ActiveFamily history of cardiac disorder: Mother, Sister(V17.49, Z82.49) Status:Active Unknown Family Member Name Dates Details Family history of cerebrovas cular accident (CVA): Mother, Sister(V17.1, Z82.3) Status:ActiveFamily history of hypertension: Mother, Sister(V17.49, Z82.49) Status:ActiveFamily history of diabetes mellitus: Mother, Sister(V18.0, Z83.3) Status:ActiveFamily history of cardiac disorder: Mother, Sister(V17.49, Z82.49) Status:Active Unknown Family Member Name Dates Details Family history of cerebrovas cular accident (CVA): Mother, Sister(V17.1, Z82.3) Status:ActiveFamily history of hypertension: Mother, Sister(V17.49, Z82.49) Status:ActiveFamily history of diabetes mellitus: Mother, Sister(V18.0, Z83.3) Status:ActiveFamily history of cardiac disorder: Mother, Sister(V17.49, Z82.49) Status:Active Unknown Family Member Name Dates Details Family history of cerebrovas cular accident (CVA): Mother, Sister(V17.1, Z82.3) Status:ActiveFamily history of hypertension: Mother, Sister(V17.49, Z82.49) Status:ActiveFamily history of diabetes mellitus: Mother, Sister(V18.0, Z83.3) Status:ActiveFamily history of cardiac disorder: Mother, Sister(V17.49, Z82.49) Status:Active Unknown Family Member Name Dates Details Family history of cerebrovas cular accident (CVA): Mother, Sister(V17.1, Z82.3) Status:ActiveFamily history of hypertension: Mother, Sister(V17.49, Z82.49) Status:ActiveFamily history of diabetes mellitus: Mother, Sister(V18.0, Z83.3) Status:ActiveFamily history of cardiac disorder: Mother, Sister(V17.49, Z82.49) Status:Active Unknown Family Member Name Dates Details Family history of cerebrovas cular accident (CVA): Mother, Sister(V17.1, Z82.3) Status:ActiveFamily history of hypertension: Mother, Sister(V17.49, Z82.49) Status:ActiveFamily history of diabetes mellitus: Mother, Sister(V18.0, Z83.3) Status:ActiveFamily history of cardiac disorder: Mother, Sister(V17.49, Z82.49) Status:Active Unknown Family Member Name Dates Details Family history of cardiac di sorder: Mother, Sister(V17.49, Z82.49) Status:ActiveFamily history of diabetes mellitus: Mother, Sister(V18.0, Z83.3) Status:ActiveFamily history of hypertension: Mother, Sister(V17.49, Z82.49) Status:ActiveFamily history of cerebrovascular accident (CVA): Mother, Sister (V17.1, Z82.3) Status:Active Relationship Condition Age at Onset Recorded Date/T macie brother Hypertension Unknown daughterHeart diseaseUnknownfatherDeceasedUnknownNot SpecifiedHistory of stroke UnknownDiabetes mellitusUnknownHeart diseaseUnknownDeceasedUnknownnatural son Heart diseaseUnknownMalignant neoplasmUnknownsisterDiabetes mellitusUnknown Relationship Condition Age at Onset Recorded Date/T macie brother Hypertension Unknown daughterHeart diseaseUnknownfatherDeceasedUnknownmotherHistory of strokeUnknown Diabetes mellitusUnknownHeart diseaseUnknownDeceasedUnknownsonHeart disease UnknownMalignant neoplasmUnknownsisterDiabetes mellitusUnknown Advance Directives No Advanced Directives Records Found [...] Follow Up Multiple Myeloma. 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 6 Month Follow UpReason for VisitCKD (chronic kidney disease) stage 4, GFR 15-29 ml/min Depression HTN (hypertension) Multiple myeloma in remission CKD (chronic kidney disease) stage 4, GFR 15-29 ml/min Hyperkalemia Hyperlipidemia [id number] Metabolic acidemia Multiple myeloma Secondary hyperparathyroidism of [...] Follow Up CC Adult Risk Stratification Foot ExamReason for VisitCKD (chronic kidney disease) stage 4, GFR 15-29 ml/min Depression HTN (hypertension) Multiple myeloma in remission CKD (chronic kidney disease) stage 4, GFR 15-29 ml/min Hyperkalemia Hyperlipidemia [id number] Metabolic acidemia Multiple myeloma Secondary hyperparathyroidism of [...] CC Adult Risk Stratification Foot Exam sob, weaknessReason for VisitCKD (chronic kidney disease) stage 4, GFR 15-29 ml/min Hyperkalemia Hyperlipidemia [id number] Metabolic acidemia Multiple myeloma Secondary hyperparathyroidism of [...] sob, weakness sob, weakness CC Adult Risk StratificationReason for VisitCKD (chronic kidney disease) stage 4, GFR 15-29 ml/min Hyperkalemia Hyperlipidemia [id number] Metabolic acidemia Multiple myeloma Secondary hyperparathyroidism of [...] 2024 8:18am Unknown October 12, 2024 8:52am Snf Visit October 23, 2024 11:59pm MCFP discharge f/u, BCC October 30, 2024 1:58pm Amb Documentation November 26, 2024 8 :00am VIRTUAL:[facility] November 28, 2024 1 0:36am Reason for Visit Admit Date CKD (chronic kidney disease) stage 4, GF R 15-29 ml/min September 18, 2024 12:41am Atrial fibrillation September 18, 2024 1 2:41am Chest pain September 18, 2024 1 2:41am Diabetes mellitus type II, controlled No vember 2023 12:41am Diabetic neuropathy September 18, 2024 1 [...] 2024 8:18am Unknown October 12, 2024 8:52am Snf Visit October 23, 2024 11:59pm MCFP discharge f/u, BCC October 30, 2024 1:58pm [...] 2024 10:36am Cerebellar stroke, acute December 12, 2 025 [...] 2024 8:18am Unknown October 12, 2024 8:52am Snf Visit October 23, 2024 11:59pm MCFP discharge f/u, BCC October 30, 2024 1:58pm [...] 2024 10:36am Cerebellar stroke, acute December 12, 2 025 [...] 2024 8:18am Unknown October 12, 2024 8:52am Snf Visit October 23, 2024 11:59pm MCFP discharge f/u, BCC October 30, 2024 1:58pm [...] 28, 2024 10:36am Cerebellar stroke, acute December 12 1:03pm CKD (chronic kidney disease) stage 4, [...] 2024 8:18am Unknown October 12, 2024 8:52am Snf Visit October 23, 2024 11:59pm MCFP discharge f/u, BCC October 30, 2024 1:58pm Amb Documentation November 26, 2024 8 :00am VIRTUAL:[facility] November 28, 2024 1 0:36am Multiple Myeloma. December 12, 2024 1 :03pm trouble breathing December 19, 2024 4 :18pm trouble breathing December 20, 2024 8 :30am Amb Documentation December 25, 2024 7:58am RENAL 6 MONTH F/U December 25, 2024 2:26pm IP [facility] [place] December 26, 2024 10:49am Reason for [...] 2024 10:36am Cerebellar stroke, acute December 12, 2 025 1:03pm CKD (chronic kidney disease) stage 4, GF R 15-29 ml/min December 12, 2024 1:03pm Hyperlipidemia December 12, 2024 1 :03pm 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 Solo cisneros 2024 1:03pm Atrial fibrillation December 12, 2024 1 :03pm Diabetes mellitus type II, controlled Ja pavanary 2024 1:03pm HTN (hypertension) December 12, 2024 [...] 2024 8:18am Unknown October 12, 2024 8:52am Snf Visit October 23, 2024 11:59pm [facility]FP discharge f/u, BCC October 30, 2024 1:58pm Amb Documentation November 26, 2024 8 :00am VIRTUAL:[facility] November 28, 2024 1 0:36am Multiple Myeloma. December 12, 2024 1 :03pm trouble breathing December 19, 2024 4 :18pm trouble breathing December 20, 2024 8 :30am Amb Documentation December 25, 2024 7:58am RENAL 6 MONTH F/U December 25, 2024 2:26pm IP [facility] [place] December 26, 2024 10:49am [id number] January [...] 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 Febr uary 2024 10:49am Chief Complaint Admit Date Amb Documentation November 26, 2024 8 :00am VIRTUAL:[facility] November 28, 2024 1 0:36am Multiple Myeloma. December 12, 2024 1 :03pm trouble breathing December 19, 2024 4 :18pm trouble breathing December 20, 2024 8 :30am Amb Documentation December 25, 2024 7:58am RENAL 6 MONTH F/U December 25, 2024 2:26pm IP [facility] [place] December 26, 2024 10:49am [id number] January 02, 2025 7:28am Amb Documentation February 05, 2025 11: 42am HIGH RISK, TB[facility]/Dehydration/diahrea February 11, 2025 10:52am Reason for Visit Admit Date Acute on chronic diastolic (congestive) heart failure [...] 2024 1:03pm Cerebellar stroke, acute December 12, 1:03pm CKD (chronic kidney disease) stage 4, [...] 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 Febr uary 2024 10:49am Chief Complaint Admit Date VIRTUAL:[facility] November 28, 2024 1 0:36am Multiple Myeloma. December 12, 2024 1 :03pm trouble breathing December 19, 2024 4 :18pm trouble breathing December 20, 2024 8 :30am Amb Documentation December 25, 2024 7:58am RENAL 6 MONTH F/U December 25, 2024 2:26pm IP [facility] [place] December 26, 2024 10:49am [id number] January 02, 2025 7:28am Amb Documentation February 05, 2025 11: 42am HIGH RISK, TBH/Dehydration/diahrea February 11, 2025 10:52am Typical a flutter, mcfp high risk m ed use February 26, 2025 8:03am Reason for Visit Admit Date Acute on chronic diastolic (congestive) heart failure [...] 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 Solo blayne 2024 1:03pm Multiple myeloma December 12, 2024 [...] 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 Febr uary 2024 10:49am Atrial fib/flutter, transient January 10:52am Depression February 11, 2025 10: 52am Hypotension February 11, 2025 10: 52am Chief Complaint Admit Date trouble breathing December 19, 2024 4 :18pm trouble breathing December 20, 2024 8 :30am Amb Documentation December 25, 2024 7:58am RENAL 6 MONTH F/U December 25, 2024 2:26pm IP [facility] [place] December 26, 2024 10:49am [id number] January 02, 2025 7:28am Amb Documentation February 05, 2025 11: 42am HIGH RISK, TBH/Dehydration/diahrea February 11, 2025 10:52am Typical a flutter, mcfp high risk m ed use February 26, 2025 8:03am BP Check-HIGH RISK March 14, 2025 2:17pm Reason for Visit Admit Date Acute on chronic diastolic (congestive) heart failure [...] 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 Febr uary 2024 10:49am Atrial fib/flutter, transient January 10:52am Depression February 11, 2025 10: 52am Hypotension February 11, 2025 10: 52am Chief Complaint Admit Date Amb Documentation July 10, 2025 10 :50am Multiple Myeloma. August 12, 2025 1:37pm Follow Up 1 Year August 19, 2025 12 :59pm Reason for Visit Admit Date CKD (chronic kidney disease) stage 4, GF R 15-29 ml/min August 12, 2025 1:37pm Hyperlipidemia August 12, 2025 1:37pm Atrial fibrillation August 12, 2025 1:37pm Diabetes mellitus type II, controlled Se ptember 2024 1:37pm HTN (hypertension) August 12, 2025 1:37pm Multiple myeloma in remission August 12, 2025 1:37pm Unsteady gait August 12, 2025 1:37pm Anemia August 12, 2025 1:37pm B12 deficiency anemia August 12 1:37pm Cerebellar stroke, acute August 12, 2025 1:37pm Dizziness August 12, 2025 1:37pm Hearing loss August 12, 2025 1:37pm 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 Sept ember 2024 1:37pm Multiple myeloma August 12, 2025 1:37pm Steroid-induced hyperglycemia August 12, 2025 1:37pm Transient left leg weakness August 122024 1:37pm Double vision August 12, 2025 1:37pm Left facial numbness August 12 1:37pm Shoulder pain August 12, 2025 1:37pm Weakness August 12, 2025 1:37pm Reason for Referral SpecialtyDiagnoses / ProceduresReferred By ContactReferred To ContactCardiology Diagnoses Aortic valve regurgitation, nonrheumatic Ascending aorta dilation (CMS/HCC) Pulmonary hypertension (CMS/HCC) Procedures Transthoracic Echo (TTE) Complete IL ECHO TRANSTHORC R-T 2D W/WO M-MODE REC F-UP/LMTD IL DOP ECHOCARD COLOR FLOW VELOCITY MAPPING IL DOP ECHOCARD PULSE WAVE W/SPECTRAL F-UP/LMTD STD Traboulssi, Mourhaf, MD [address] [place] [address] Referral IDStatusReasonStdorchester DateExpiration DateVisits RequestedVisits [id number] Review Perform Procedure [id number] / ProceduresReferred By ContactReferred To Contact Diagnoses Persistent atrial fibrillation with RVR (CMS/HCC) Procedures ECG 12 Lead Elicia Rhodes MD [address] [place] [address] Referral IDStatusReasonStdorchester DateExpiration DateVisits RequestedVisits [id number] [id number] / ProceduresReferred By ContactReferred To ContactCardiology Diagnoses Persistent atrial fibrillation with RVR (CMS/HCC) Aortic valve regurgitation, nonrheumatic Ascending aorta dilation (CMS/HCC) Procedures Follow Up In Cardiology Elicia Rhodes MD [address] [place] [address] Elicia Rhodes MD [address] [place] [address] Referral IDStatusReasonWilkinson DateExpiration DateVisits RequestedVisits [id number]/21/202311/20/202411 Additional Source Comments INFORMATION SOURCE (unrecogn ized section and content) DATE CREATED AUTHOR 10/19/2019 [facility] DATE CREATED AUTHOR AUTHOR'S ORGANIZ ATION 03/24/2023 [facility] DATE CREATED AUTHOR AUTHOR'S ORGANIZ ATION 03/26/2023 [facility] DATE CREATED AUTHOR AUTHOR'S ORGANIZ ATION 03/26/2023 [employer] DATE CREATED AUTHOR AUTHOR'S ORGANIZ ATION 07/29/2024 [facility] DATE CREATED AUTHOR AUTHOR'S ORGANIZ ATION 03/26/2025 [facility] EPIC DATE CREATED AUTHOR AUTHOR'S ORGANIZ ATION 05/28/2025 [facility] DATE CREATED AUTHOR AUTHOR'S ORGANIZ ATION 08/22/2025 [facility] DATE CREATED AUTHOR AUTHOR'S ORGANIZ ATION 08/25/2025 [facility] REASON FOR VISIT (unrecogniz ed section and content) ReasonCommentsFollow-up6m with ekgSpecialtyDiagnoses / ProceduresReferred By ContactReferred To Contact Diagnoses Persistent atrial fibrillation with RVR (CMS/HCC) Procedures ECG 12 Lead Elicia Rhodes MD [address] [place] [address] Referral IDStaSumma Health DateExpiration DateVisits RequestedVisits [id number] [id number] / ProceduresReferred By ContactReferred To ContactCardiology Diagnoses Aortic valve regurgitation, nonrheumatic Ascending aorta dilation (CMS/HCC) Pulmonary hypertension (CMS/HCC) Procedures Transthoracic Echo (TTE) Complete IL ECHO TRANSTHORC R-T 2D W/WO M-MODE REC F-UP/LMTD IL DOP ECHOCARD COLOR FLOW VELOCITY MAPPING IL DOP ECHOCARD PULSE WAVE W/SPECTRAL F-UP/LMTD STD Elicia Rhodes MD [address] [place] [address] Ref[facility] DateExpiration DateVisits RequestedVisits [id number] Review Perform Procedure [id number]-tw6 monthsSpecialtyDiagnoses / ProceduresReferred By ContactReferred To ContactCardiology Diagnoses Persistent atrial fibrillation with RVR (Multi) Aortic valve regurgitation, nonrheumatic Ascending aorta dilation (CMS-HCC) Procedures Follow Up In Cardiology Elicia Rhodes MD [address] [place] [id number] Elicia Rhodes MD [address] [facility] [address], [place] [id number] Referral IDStatusReasonStart DateExpiration DateVisits RequestedVisits [id number]/21/202311/368258WdjaueCkxwcmurLxzelg-wt5 month SpecialtyDiagnoses / ProceduresReferred By ContactReferred To ContactCardiology Diagnoses Persistent atrial fibrillation with RVR (Multi) Procedures Follow Up In Cardiology Elicia Rhodes MD [address] [facility] [address], [place] [address] Phone: tel: fax: Elicia Rhodes MD [address], [place] [phone] Phone: tel: fax: Referral IDStatusReasonStart DateExpiration DateVisits RequestedVisits [id number]/4/20246/711923KlvmbdYplpkgyfZwfhjp-kyNzmkbh FibrillationEKG visitSpecialtyDiagnoses / ProceduresReferred By ContactReferred To Contact Diagnoses Persistent atrial fibrillation with RVR (Multi) Procedures ECG 12 Lead Elicia Rhodes MD [address] [facility] [address], [place] [id number] Phone: tel: fax: Referral IDStatusReasonStart DateExpiration DateVisits RequestedVisits [id number]/17/20251/645689GdzymdQdcdnogrNBD visitSpecialty Diagnoses / ProceduresReferred By ContactReferred To Contact Diagnoses Persistent atrial fibrillation with RVR (Multi) Procedures ECG 12 Lead Elicia Rhodes MD [address] [facility] [address], [place] [id number] Phone: tel: fax: Referral IDStatusReasonStart DateExpiration DateVisits RequestedVisits [id number]/27/20251/27/448632LcsmueKgjixyfwVovoxj-lwXeu Dr. Rhodes Follow up for Atrial FibrillationSpecialtyDiagnoses / Procedures Referred By ContactReferred To Contact Diagnoses Typical atrial flutter (Multi) Procedures ECG 12 Lead Jerrica Overton, FACILITY 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 EQUIPMENT SPECIALIST [address] [place] [id number] Phone: tel: fax: Referral IDStatusReasonStart DateExpiration DateVisits RequestedVisits [id number]/8/20254/8/635306NjxzzvHaejngniVdrzvtCknmphQlludxdc Follow-up1 week BP check cardioversionSpecialtyDiagnoses / ProceduresReferred By ContactReferred To ContactCardiology Diagnoses Essential hypertension Procedures Follow Up In Cardiology Elicia Rhodes MD [address] [place], [place] [id number] Phone: tel: fax: Elicia Rhodes MD [address] [place] [phone] Phone: tel: fax: Referral IDStatusReasonStart DateExpiration DateVisits RequestedVisits [id number]/7/20255/7/086801HasmdyXmlxpwqjJdnbzq-sq5 month Follow up for HypertensionSpecialtyDiagnoses / ProceduresReferred By Contact Referred To ContactCardiology Diagnoses Essential hypertension Procedures Follow Up In Cardiology Elicia Rhodes MD [address] [place] [address] Phone: tel: fax: Elicia Rhodes MD [address], [address] [address] Phone: tel: fax: Referral IDStatReasonStart DateExpiration DateVisits RequestedVisits [id number]/19/202412/19/202511 Care Teams (unrecognized sec tion and content) Team Status: Active Member Role Status Dates Curt Clark MD Primary Care Provider Active Team Status: Active Member Role Status Dates Curt Clark MD Primary Care Provider Active Start: July 08, 2025 Phillip Arroyo , DOAttending ProviderActiveStart: July 08, 2025 Team Status: Active Member Role Status Dates Curt Clark MD Primary Care Provider Active Start: July 10, 2025 Renetta Mcmanus , CMAAttending ProviderActiveStart: July 10, 2025 Team Status: Active Member Role Status Dates Curt Clark MD Primary Care Provider Active Start: August 12, 2025 Claire Choi II, DOAttending ProviderActiveStart: August 12, 2025 Team Status: Inactive Member Role Status Dates Curt Clark MD Primary Care Provider Active Start: August 19, 2025 End: August 19, 2025Claire Choi II, DOAttending ProviderActiveStart: August 19, 2025 End: August 19, 2025 Team Status: Inactive Member Role Status Dates Curt Clark MD Primary Care Provide r, Attending Provider Active Start: November 28, 2024 End: November 28, 2024 Team Status: Active Member Role Status Dates Curt Clark MD Primary Care Provider Active Start: December 12, 2024 Claire Choi II, DOActiveStart: December 12, 2024 Misti Moser Mohsen , APRNAttenwinnie ProviderActiveStart: December 12, 2024 Team Status: Inactive Member Role Status Dates Curt Clark MD Primary Care Provider Active Start: December 19, 2024 End: December 22, 2024Dick Gutierres ProviderActiveStart: December 19, 2024 End: December 22, 2024Mandie Taylor Provider, Attending ProviderActive Start: December 19, 2024 End: December 22byron Suarez MDOther ProviderActiveStart: December 19, 2024 End: December 22, 2024 Team Status: Active Member Role Status Dates Curt Clark MD Primary Care Provider Active Start: December 20, 2024 Dick Gutierres ProviderActiveStart: December 20, 2024 Jonathan Valenzuela MDAdmit Provider, Other ProviderActiveStart: December 20, 2024 Akin Lopez , MDAttending Provider, Other ProviderActiveStart: December 20, 2024 Team Status: Active Member Role Status Dates Curt Clark MD Primary Care Provider Active Start: December 24, 2024 Akin Lopez , MDAttending ProviderActiveStart: December 24, 2024 Team Status: Active Member Role Status Dates Curt Clark MD Primary Care Provider Active Start: December 25, 2024 Renetta Mcmanus CMAAttending ProviderActiveStart: December 25, 2024 Team Status: Inactive Member Role Status Betsy Clark MD Primary Care Provider Active Start: December 25, 2024 End: December 25bdul Lopez , MDAttending ProviderActiveStart: December 25, 2024 End: December 25, 2024 Team Status: Inactive Member Role Status Dates Curt Clark MD Primary Care Provide r, Attending Provider Active Start: December 26, 2024 End: December 26, 2024 Team Status: Active Member Role Status Betsy Clark MD Primary Care Provider Active Start: December 31, 2024 Akin Lopez , MDAttending ProviderActiveStart: December 31, 2024 Team Status: Inactive Member Role Status Betsy Clark MD Primary Care Provider Active Start: January 02, 2025 End: January 02, 2025Elicia Rhodes MDAttending Provider, Referring ProviderActiveStart: January 02, 2025 End: January 02, 2025 Team Status: Active Member Role Status Betsy Clark MD Primary Care Provider Active Start: February 04, 2025 KRISTEN Hayden-CAttending ProviderActiveStart: February 04, 2025 Team Status: Active Member Role Status Dates Curt Clark MD Primary Care Provider Active Start: February 05, 2025 Armen Do MDAttending ProviderActiveStart: February 05, 2025 Team Status: Active Member Role Status Dates Curt Clark MD Primary Care Provider Active Start: February 05, 2025 Renetta Mcmanus CMAAttending ProviderActiveStart: February 05, 2025 Team Status: Inactive Member Role Status Dates Curt Clark MD Primary Care Provide r, Attending Provider Active Start: February 11, 2025 End: February 11, 2025 Team Status: Inactive Member Role Status Dates Curt Clark MD Primary Care Provider Active Start: February 26, 2025 End: February 26, 2025Jerrica Overton APRNAttending ProviderActiveStart: February 26, 2025 End: February 26, 2025CLAUDY Duganeferring ProviderActiveStart: February 26, 2025 End: February 26, 2025 Team Status: Active Member Role Status Betsy Clark MD Primary Care Provider Active Start: May 23, 2024 Liberty Rossi MDAttending ProviderActiveStart: May 23, 2024 Team Status: Inactive Member Role Status Betsy Clark MD Primary Care Provide r, Attending Provider Active Start: May 31, 2024 End: May 31, 2024 Team Status: Active Member Role Status Betsy Clark MD Primary Care Provider Active Start: June 27, 2024 Akin Suarez MDAttending ProviderActiveStart: June 27, 2024 Team Status: Inactive Member Role Status Betsy Clark MD Primary Care Provider Active Start: July 05, 2024 End: July 05bdjames Hernandezdir , MDAttending ProviderActiveStart: July 05, 2024 End: July 05, 2024 Team Status: Active Member Role Status Betsy Clark MD Primary Care Provider Active Start: August 01, 2024 Claire Choi II, DOActiveStart: August 01, 2024 Misti Connolly APRNAttending ProviderActiveStart: August 01, 2024 Team Status: Inactive Member Role Status Betsy Clark MD Primary Care Provider Active Start: August 17, 2024 End: August 17, 2024Claire Choi II, DOAttending ProviderActiveStart: August 17, 2024 End: August 17, 2024 Team Status: Inactive Member Role Status Dates Curt Clark MD Primary Care Provider Active Nehemias Fernandez II, MDAttending ProviderActive Team Status: Active Member Role Status Dates Curt Clark MD Primary Care Provider Active Claire Choi II, DOAttending ProviderActiveTeam MemberRelationship SpecialtyStart DateEnd Date Curt Clark MD PCP - [facility]12/10/14Team MemberRelationshipSpecialtyStart DateEnd Date Curt Clark MD [address] [place] [address] [place] [address] PCP - [facility]10/22/23Team MemberRelationshipSpecialtyStart [place] [address] [place] [address] [place] [address] PCP - [facility]10/22/23 Team Status: Inactive Member Role Status Dates Curt Clark MD Attending Provider Active St art: December 01, 2023 End: December 01, 2023 Team Status: Active Member Role Status Dates Curt Clark MD Primary Care Provider Active Start: December 15, 2023 Claire Choi II, DOAttending ProviderActiveStart: December 15, 2023 Team Status: Active Member Role Status Dates Curt Clark MD Primary Care Provide r, Attending Provider Active Start: December 27, 2023 Team Status: Inactive Member Role Status Dates Curt Clark MD Primary Care Provider Active Start: January 04, 2024 End: January 04byron Suarez , MDAttending ProviderActiveStart: January 04, 2024 End: January 04, 2024 Team Status: Active Member Role Status Dates Curt Clark MD Primary Care Provider Active Start: January 27, 2024 Claire Choi II, DOActiveStart: January 27, 2024 Crissy Demboske , APRNAttending ProviderActiveStart: January 27, 2024 Team Status: Inactive Member Role Status Dates Curt Clark MD Primary Care Provider Active Start: January 27, 2024 End: January 27, 2024Misti Shanti LILIAN ConnollyNAttenwinnie ProviderActive Start: January 27, 2024 End: January 27, 2024 Team Status: Active Member Role Status Dates Curt Clark MD Primary Care Provide r, Attending Provider Active Start: February 15, 2024 Team Status: Active Member Role Status Dates Curt Clark MD Primary Care Provider Active Start: February 28, 2024 Claire Choi II, DOAttending ProviderActiveStart: February 28, 2024 Team Status: Inactive Member Role Status Dates Curt Clark MD Primary Care Provide r, Attending Provider Active Start: April 12, 2024 End: April 12, 2024Team MemberRelationshipSpecialtyStart DateEnd Date Curt Clark MD PCP - [facility]10/22/23 Team Status: Active Member Role Status Dates Curt Clark MD Primary Care Provider Active Start: April 25, 2024 Claire Choi II, DOAttending ProviderActiveStart: April 25, 2024 Team Status: Active Member Role Status Dates Curt Clark MD Primary Care Provider Active Start: June 06, 2024 Claire Choi II, DOAttending ProviderActiveStart: June 06, 2024 Team Status: Active Member Role Status Dates Curt Clark MD Primary Care Provide r, Attending Provider Active Start: August 20, 2024 Team Status: Inactive Member Role Status Dates Curt Clark MD Primary Care Provide r, Attending Provider Active Start: August 20, 2024 End: August 20, 2024Team MemberRelationshipSpecialtyStart DateEnd Date Curt Clark MD [address] [place] [phone] [facility] - [facility]06/29/23 Team Status: Active Member Role Status Dates Curt Clark MD Primary Care Provider Active Start: September 14, 2024 KRISTEN [facility] ProviderActiveStart: September 14, 2024 Team Status: Active Member Role Status Dates Curt Clark MD Primary Care Provider Active Start: September 18, 2024 Orlando Carlosrcarole ProviderActiveStart: September 18, 2024 Pool Buck , MDAdmit Provider, Attending ProviderActiveStart: September 18, 2024 Team Status: Inactive Member Role Status Dates Curt Clark MD Primary Care Provider Active Start: September 18, 2024 End: September 19norah Valdez DOEmergenmerlene ProviderActiveStart: September 18, 2024 End: September 19, 2024Pool Buck , MDAdmit ProviderActiveStart: September 18, 2024 End: September 19del Diaz MDOther ProviderActiveStart: September 18, 2024 End: September 19, 2024Sherron Li MDOther ProviderActiveStart: September 18, 2024 End: September 19, 2024Pj Montes MDOther ProviderActiveStart: September 18, 2024 End: September 19, 2024Kellya Sukhwinder , APRNOther ProviderActiveStart: September 18, 2024 End: September 19enedict Colette Morgan Jr, DOOther ProviderActiveStart: September 18, 2024 End: September 19nddanielle Patterson MDAttending ProviderActiveStart: September 18, 2024 End: September 19, 2024 Team Status: Active Member Role Status Dates Curt Clark MD Primary Care Provider Active Start: September 18, 2024 Orlando Carlosrcarole ProviderActiveStart: September 18, 2024 Pool Buck , MDAdmit ProviderActiveStart: September 18, 2024 Trent Patterson MDOther ProviderActiveStart: September 18, 2024 Cristiano Diaz MDAttending Provider, Other ProviderActiveStart: September 18, 2024 Sherron Li MDOther ProviderActiveStart: September 18, 2024 Pj Montes MDOther ProviderActiveStart: September 18, 2024 Kristanboogie Pretty , APRNOther ProviderActiveStart: September 18, 2024 [place] Colette Morgan Jr, DOOther ProviderActiveStart: September 18, 2024 Team Status: Active Member Role Status Dates Curt Clark MD Primary Care Provide r, Attending Provider Active Start: September 19, 2024 Team MemberRelationshipSpecialtyStart DateEnd Date Curt Clark MD [facility] [place] [address] PCP - [facility]06/29/23Team MemberRelationshipSpecialtyStart DateEnd Date [facility] Team Status: Active Member Role Status Dates Curt Clark MD Primary Care Provider Active Start: September 14, 2024 George Salmeron DOAttending ProviderActiveStart: September 14, 2024 Team Status: Active Member Role Status Dates Curt Clark MD Primary Care Provider Active Start: September 29, 2024 Trent Patterson MDAttending ProviderActiveStart: September 29, 2024 Team Status: Active Member Role Status Dates Curt Clark MD Primary Care Provider Active Start: October 10, 2024 Jaquan Frausto DOAttending ProviderActiveStart: October 10, 2024 Team Status: Active Member Role Status Dates George Salmeron DO Attending Provider Active Sta rt: October 11, 2024 End: October 14, 2024Nela Rodriguez ProviderActiveStart: October 11, 2024 End: October 14, 2024 Team Status: Active Member Role Status Dates Curt Clark MD Primary Care Provider Active Start: October 11, 2024 Shaikh Kim MDAttending ProviderActiveStart: October 11, 2024 Team Status: Active Member Role Status Dates Curt Clark MD Primary Care Provider Active Start: October 12, 2024 Renetta Mcmanus CMAAttending ProviderActiveStart: October 12, 2024 Team Status: Inactive Member Role Status Dates Flako Huggins DO Attending Provider Active Start: October 12, 2024 End: October 12, 2024 Team Status: Active Member Role Status Dates Curt Clark MD Primary Care Provider Active Start: October 13, 2024 Kim , MDAttending ProviderActiveStart: October 13, 2024 Team Status: Active Member [...] Active Start: November 21, 2024 Radha Herbert DOAttending ProviderActiveStart: November 21, 2024 Team Status: Active Member Role Status Dates Curt Clark MD Primary Care Provider Active Start: November 22, 2024 Dany Corcoran ProviderActiveStart: November 22, 2024 Team Status: Active Member Role Status Dates Curt Clark MD Primary Care Provider Active Start: November 23, 2024 Shaikh Kim , MDAttending ProviderActiveStart: November 23, 2024 Team Status: Active Member Role Status Dates Curt Clark MD Primary Care Provide r, Attending Provider Active Start: November 24, 2024 Team Status: Active Member Role Status Dates Curt Clark MD Primary Care Provider Active Start: November 26, 2024 Renetta Mcmanus CMAAttending ProviderActiveStart: November 26, 2024 Team MemberRelationshipSpecialtyStart DateEnd Date [facility] Team Status: Active Member Role Status Dates Curt Clark MD Primary Care Provider Active Start: December 19, 2024 Dick Gutierres ProviderActiveStart: December 19, 2024 Mandie Taylor, Attending ProviderActiveStart: December 19, 2024 Akin Suarez MDOther ProviderActiveStart: December 19, 2024 Team Status: Active Member Role Status Dates Curt Clark MD Primary Care Provider Active Start: November 21, 2024 George Ball , DOAttending ProviderActiveStart: November 21, 2024 Team MemberRelationshipSpecialtyStart DateEnd Date [facility] MemberRelationshipSpecialtyStart DateEnd Date [facility] Jdktgtih27/9/23 Team Status: Inactive Member Role Status Dates Curt Clark MD Primary Care Provide r, Attending Provider Active Start: March 14, 2025 End: March 14, 2025Team MemberRelationshipSpecialtyStart DateEnd Date Curt Clark MD [address] [facility] [place] [address] [facility]23Team MemberRelationshipSpecialtyStart DateEnd Date Curt Clark MD [address] [facility] [place] [phone] PCP - [facility]06/29/23Team MemberRelationshipSpecialtyStart DateEnd Date Curt Clark [facility]23Team MemberRelationshipSpecialtyStart DateEnd Date Curt Clark MD [address] [facility] [place] [phone] PCP - [facility]06/29/23Team MemberRelationshipSpecialtyStart DateEnd Date Curt Clark MD [address] [facility] [place] [address] PCP - [facility]06/29/23Team MemberRelationshipSpecialtyStart DateEnd Date Curt Clark MD PCP - [facility]10/22/23 Goals (unrecognized section and content) Goals may [...] BE BASED ON THE PRIMARY CLINICAL RECORDS. [facility] [employer] [facility] provides no warranty or guarantee of the accuracy or completeness of information in this document.
== END 2025-09-16 08:51 | disposition home or self-care (01) ==
LOC: LAB 08:50
PROVIDERS: PCP Family Medicine; Visit Provider Internal Medicine
DX: C90.00 Multiple myeloma not having achieved remission (principal); N25.81 Secondary hyperparathyroidism of renal origin; I12.9 Hypertensive chronic kidney disease with stage 1 through stage 4 chronic kidney disease, or unspecified chronic kidney disease; E11.22 Type 2 diabetes mellitus with diabetic chronic kidney disease; E87.20 Acidosis, unspecified; N18.4 Chronic kidney disease, stage 4 (severe)
CPT/HCPCS: 36415; 80069; 81001; 82306; 82570; 83735; 83970; 84156; 84550; 85027

== ENCOUNTER 2025-10-15 13:49 | Emergency (ER) | payer MEDICARE, OTHER, SELFPAY ==
[2025-10-15 14:10] VITALS: BP 170/80; PULSE 63; TEMP 36.5; O2SAT 98; BMI 30.8
--- OUTSIDE RECORDS SUMMARY | 2025-10-15 14:18 | XMS_ITS | Clinical Summary ---
Author Organization [email or web address] tem Address [id number] [address] [place] [address] Care Team Providers Care Theology Teacher Name Role Phone Unavailable Primary Care Provider Unavailabl e Social History Tobacco UseTypesPacks/DayYears UsedDateSmoking Tobacco: Never AssessedChildcare AnswerDate DvxkkhxrXamsjeoswKoeoiaf78/12/2019EmploymentAnswerDate Recorded KsmbosmqohNvryjqq82/12/2019CommentsUnknownSex and Gender Information ValueDate RecordedSex Assigned at BirthNot on fileLegal RqwTttzzb55/06/2015 11:55 AM EDTGender IdentityNot on fileSexual OrientationNot on file Plan of Treatment Health MaintenanceDue DateLast DoneCommentsDepression Sevfybjto35/30/1954Tobacco Nclykxfqi49/30/1954DTaP,Tdap and Td Vaccines (1 - Tdap)1961Zoster (Shingles) Vaccine (1 of 2)1992Fall Risk Yjwdfdexl27/30/2007RSV ( or age 60+ yrs) (1 - 1-dose 75+ series)2017Influenza Jrhdphi2807/15/2025 Medical Devices [place] [address]
--- OUTSIDE RECORDS SUMMARY | 2025-10-15 14:18 | XMS_ITS | Clinical Summary ---
Author Organization [facility] Address [address] [place] [address] Care Team Providers Care [employer] Rep Name Role Phone Karie Mcfadden MD Primary Care Provider [phone] Allergies Active AllergyReactionsCriticalityNoted DateCommentsHydrocodone-Acetaminophen 03/05/2024LenalidomideRash,GxevhIsn63/11/2016OxybutyninHives,Rash,OtherLow 10/04/2023 Other Reaction(s): Rash, rash, hives LtmwquhlvcDpbzs07/22/2024 Other Reaction(s): double vision Medications MedicationSigDispense QuantityRefillsLast FilledStart DateEnd DateStatus Cyanocobalamin (VITAMIN B-12 PO) Take by mouthActive Charlotte-3 Fatty Acids (FISH OIL PO) Take by [...] with hyperglycemia 10/18/2024Long term (current) use of xqsmczu3310/18/2024Vitamin D deficiency, epligrrcvtc02/05/2024Multiple xmmxita5203/05/2024 Overview (03/05/2024): History of multiple myeloma. MRI of the brain on 11/15/19 was without mention of brain mass or metastases. PLAN: - Follow up with oncology Pidciqmgnpvf14/22/2024hronic kidney mvlyodf5603/05/20247137Zxtbnb62/22/2024hronic myofascial pain03/05/20247617Hfrtkfdrqnuwki40/22/2024iabetes pmeebhmj21/22/2024 Transient ischemic isjfmw4603/05/2024erebellar lgillhz4503/05/2024 Overview (03/05/2024): The patient has a history [...] if any of these arise Paroxysmal atrial wnifzoridwmw18/22/2024 Overview (03/05/2024): The patient has a history of atrial fibrillation, on Xarelto and carvedilol. Atrial fibrillation evaristo significant risk factor for stroke. PLAN: - Follow closely with cardiology for management Lumbosacral yepxcqqzxmwyv89/22/2024 Overview (03/05/2024): Stable. At her last visit she had new, intermittent weakness in the left leg which could be from anacute left-sided lumbar radiculopathy but this has since resolved. If the symptoms return, we will consider further work-up for radiculopathy. Gait rplammmxlan77/22/2024 Overview (03/05/2024): The patient has chronic gait [...] - Fall prevention measures discussed Encounters DateTypeDepartmentCare MileFotwdyrmfma64/29/2025External Result Encounter [facility] Unsolicited Kev [...] InformationValueDate RecordedSex Assigned at BirthNot on fileLegal VkqPjztcs92/01/2023 8:34 PM EDTGender Identity Not on fileSexual OrientationNot on file Last Filed Vital Signs Vital SignReadingTime TakenCommentsBlood Htgcpqzp149/8903/25/2025 1:29 PM EDT Mzpso173803/25/2025 1:29 PM EDTTemperature--Respiratory Avbe9372 3:45 PM EDTOxygen Fhtilodkwj43%05/22/2024 3:45 PM EDTInhaled Oxygen Concentration-- Ykjndx18.9 kg (185 lb)03/25/2025 1:29 PM NYZOmbexz116.6 cm (5' 6 )03/25/2025 1:29 PM EDTBody Mass Index29.8603/25/2025 1:29 PM EDT Plan of Treatment Not on file Procedures Procedure NamePriorityDate/TimeAssociated DiagnosisCommentsXR BONE SURVEY QAQVGQBY39/29/2025 4:57 PM EDT IMMUNOFIXATION,SERUM ([facility])Tazbrdl5008/12/2025 1:57 PM EDT FREE K+L LT CHAINS, QN, PUnivofj09/29/2025 1:57 PM EDT PROTEIN ELECTROPHORESIS, XOECGMtbgdcv02/29/2025 1:57 PM EDT COMPREHENSIVE METABOLIC UZWBDSziidmf27/29/2025 1:57 PM EDT CBC WITH AUTO ITHBMODZYULXMgfpmzc14/29/2025 1:57 PM EDT from Last 3 Months [...] 08/12/25 1701 Narrative 08/12/2025 5:03 PM EDT [facility] [place] ?[address] ? [place] [address] ?XRay Report ? Signed ? Patient: Missler,Hailee J ?MR#: [id number] ?? 306 ? : 1940 ?Acct:[id number] ? Age/Sex: 85 / F ?ADM Date: [...] along the iliac wings. ? A right-sided Sgsvhw-s-Pigi is present. ??There is evidence of prior cholecystectomy in the right upper quadrant. ? There is a 15 mm lucency in the left iliac bone adjacent to the left sacroiliac joint. ??There is a7 mm lucency in the right iliac bone. ? XR/XR bone survey ?? Procedure Note Armando Huynh MD - 08/12/2025 [facility] [place] [address] [place] [address] XRay Report Signed Patient: Hailee Trivedi JMR#: [id number] 306 : 2Acct:[id number] Age/Sex: 85 / FADM Date: 08/12/25 Loc: [...] formation along the iliac wings. A right-sided Dlhxix-u-Auqt is present. There is evidence of prior [...] Huynh M.D. 08/12/2025 5:01 PM Dictation Location: [place] [address] Transcribed By: [facility] 08/12/25 170 Dictated By: Armando Huynh [...] 4:36 PM EDTFIRELANDSComment: Performed at: ?? - [facility] ??[id number] It Consultant: Elpidio Delgado PhD, Phone: ??[phone] Specimen (Source)Anatomical Location / LateralityCollection Method / Volume Collection TimeReceived TimeOtherTopography unknown / Squfzdb4908/12/2025 1:57 PM EDT08/12/2025 2:05 PM EDT Narrative Authorizing ProviderResult TypeResult StatusJunaidcain Hanley Adityabhargav [facility] BLOOD ORDERABLESFinal ResultPerforming OrganizationAddressWilson [facility]/ZIP CodePhone Number [facility] [address] [place] [address], * IMMUNOFIXATION,SERUM ([facility]) (08/12/2025 1:57 PM EDT)ComponentValueRef Range Test MethodAnalysis TimePerformed AtPathologist SignatureIMMUNOFIXATION, SERUM Comment:.08/14/2025 10:36 AM EDTFIRELANDSComment: Presence of monoclonal protein is unclear at this time. Suggest repeat in 3 to 6 months if clinically indicated. IMMUNOGLOBULIN F761280 - 1,602 mg/dL08/14/2025 10:36 AM EDTFIREINLAND [facility] IMMUNOGLOBULIN A, STYPG59786 - 422 mg/dL08/14/2025 10:36 AM EDTFIRELANDS IMMUNOGLOBULIN M, YCILT27530 - 217 mg/dL08/14/2025 10:36 AM EDTFIRELANDSComment: Performed at: ?? - [facility] [address] ??[id number] It Consultant: Elpidio Delgado PhD, Phone: ??[phone] Specimen (Source)Anatomical Location / LateralityCollection Method / Volume Collection TimeReceived TimeOtherTopography unknown / Ibtpcbm1808/12/2025 1:57 PM EDT08/12/2025 2:05 PM EDT Narrative Authorizing ProviderResult TypeResult StatusKev Choi [facility] BLOOD ORDERABLESFinal ResultPerforming OrganizationAddressWilson [facility]/State/ZIP CodePhone Number [facility] [address] [place] [address], * CBC auto differential (08/12/2025 1:57 PM EDT)ComponentValueRef RangeTest MethodAnalysis TimePerformed AtPathologist SignatureWBC8.03.8 - 11.6 [CFU]/mL 08/12/2025 2:23 PM [facility] CtrUNCORRECTED WHITE BLOOD COUNT8.03.8 - 11.6 10*3/uL08/12/2025 2:23 PM [facility] RBC4.083.60 - 5.00 10*6/uL08/12/2025 2:23 PM [facility] BFZDBXDXGV35.911.8 - 15.4 g/dL08/12/2025 2:23 PM [facility] EtxRAOEOAPZWQ85.234.0 - 46.4 %08/12/2025 2:23 PM [facility] AatNWK49.580 - 100 fL08/12/2025 2:23 PM [facility] OyiJME07.624.7 - 34.3 pg08/12/2025 2:23 PM [facility] MCHC33.832.0 - 35.0 g/dL08/12/2025 2:23 PM [facility] RED CELL DISTRIBUTION WIDTH, RDW13.311.9 - 15.3 %08/12/2025 2:23 PM [facility] CtrPLATELET NGNYF114674 - 450 10*3/uL08/12/2025 2:23 PM [facility] CtrMEAN PLATELET VOLUME, MPV9.66.3 - 10.7 fL08/12/2025 2:23 PM [facility] CtrNEUTROPHILS, %69.0. %08/12/2025 2:23 PM [facility] CtrLYMPHOCYTES, %23.3. % 08/12/2025 2:23 PM [facility] CtrMONOCYTE/MACROPHAGE, %5.9. %08/12/2025 2:23 PM [facility] CtrEOSINOPHILS, %1.0. % 08/12/2025 2:23 PM [facility] CtrBASOPHILS, %0.8. % 08/12/2025 2:23 PM [facility] CtrNRBC0.00 - 0.5 /100{WBC} 08/12/2025 2:23 PM [facility] CtrNEUTROPHILS5.51.8 - 7.7 10*3/uL08/12/2025 2:23 PM [facility] CtrLYMPHOCYTES1.91.00 - 4.8 10*3/08/12/2025 2:23 PM [facility] CtrMONOCYTES0.5 0.0 - 0.8 10*3/08/12/2025 2:23 PM [facility] EOSINOPHILS0.10.0 - 0.45 10*3/08/12/2025 2:23 PM [facility] CtrBASOPHILS0.10.0 - 0.2 10*3/08/12/2025 2:23 PM [facility] CtrSpecimen (Source)Anatomical Location / Laterality Collection Method / VolumeCollection TimeReceived TimeBlood (Blood)08/12/2025 1:57 PM EDT08/12/2025 2:05 PM EDT Narrative Authorizing ProviderResult TypeResult StatusKev Choi [facility] BLOOD ORDERABLESFinal ResultPerforming OrganizationAddressCity/State/ZIP CodePhone Number [facility] [address] [place] [address], [facility] [address] [place] [address] * Protein electrophoresis, serum (08/12/2025 1:57 PM EDT)ComponentValueRef Range Test MethodAnalysis TimePerformed AtPathologist SignatureTOTAL PROTEIN, SERUM 6.46.0 - 8.5 g/dL08/13/2025 3:08 PM EDTFIRELANDSALBUMIN, SERUM3.32.9 - 4.4 g/dL08/13/2025 3:08 PM RTVMRRDOUFNDXULOP-5-LJQAITVW9.10.0 - 0.4 g/dL08/13/2025 3:08 PM KVOXIJHOXAVICEOFV-4-PAWCDWYN9.00.4 - 1.0 g/dL08/13/2025 3:08 PM EDT [place] GLOBULIN0.90.7 - 1.3 g/dL08/13/2025 3:08 PM EDTFIRELANDSGAMMA GLOBULIN1.00.4 - 1.8 g/dL08/13/2025 3:08 PM EDTFIRELANDSM-SPIKENot ObservedNot Observed g/dL08/13/2025 3:08 PM EDTFIRELANDSGLOBULIN, TOTAL3.12.2 - 3.9 g/dL 08/13/2025 3:08 PM EDTFIRELANDSA/G RATIO1.10.7 - 1.709 3:08 PM EDT FIRELANDSSPE-NOTEComment.08/13/2025 3:08 PM EDTFIRELANDSComment: Protein electrophoresis scan will follow via computer, mail, or design leader delivery. Performed at: ??CB - [facility] [address] ??[id number] It Consultant: Elpidio Delgado PhD, Phone: ??[phone] Specimen (Source)Anatomical Location / LateralityCollection Method / Volume Collection TimeReceived TimeOtherTopography unknown / Cqxqutv7108/12/2025 1:57 PM EDT08/12/2025 2:05 PM EDT Narrative Authorizing ProviderResult TypeResult StatusKev Choi [facility] BLOOD ORDERABLESFinal ResultPerforming OrganizationAddressCity/State/ZIP CodePhone Number [facility] [address] * (ABNORMAL) Comprehensive metabolic panel (08/12/2025 1:57 PM EDT)Component ValueRef RangeTest MethodAnalysis TimePerformed AtPathologist SignatureGlucose 161(H)70 - 100 mg/dL08/12/2025 2:43 PM [facility] Comment: Random Glucose Reference Range is dependent on time and content of last meal. Glucose of more than 200 mg/dL in a nonstressed, ambulatory subject supports the diagnosis of Diabetes Mellitus. ADA recommended reference range BUN35(H)7 - 25 mg/dL08/12/2025 2:43 PM [facility] CREATININE2.34(H)0.60 - 1.20 mg/dL08/12/2025 2:43 PM [facility] CtrESTIMATED GFR20.3201008/12/2025 2:43 PM [facility] VrwPgvhzr652098 - 145 mmol/L08/12/2025 2:43 PM [facility] Potassium, Bld3.93.5 - 5.1 mmol/L08/12/2025 2:43 PM [facility] HzbDonsvhpc062(H)98 - 107 mmol/L08/12/2025 2:43 PM [facility] CtrCarbon Gjlhlbe42.621.0 - 31.0 mmol/L08/12/2025 2:43 PM [facility] CtrAnion Gap10.36.0 - 15.009 2:43 PM [facility] CtrCalcium8.5(L)8.6 - 10.3 mg/dL08/12/2025 2:43 PM [facility] CtrTOTAL PROTEIN6.76.4 - 8.9 g/dL08/12/2025 2:43 PM EDT [facility] CtrALBUMIN LEVEL3.83.5 - 5.7 g/dL08/12/2025 2:43 PM [facility] CtrGLOBULIN2.9g/dL08/12/2025 2:43 PM [facility] CtrALBUMIN/GLOBULIN RATIO1.309 2:43 PM [facility] CtrBILIRUBIN,TOTAL0.40.3 - 1.0 mg/dL08/12/2025 2:43 PM EDT [facility] CtrASPARTATE AMINO UTTFLVOIQJN2344 - 39 U/L08/12/2025 2:43 PM [facility] CtrALANINE SVZXKWNJREQLSPIJ393 - 52 U/L 08/12/2025 2:43 PM [facility] CtrALKALINE HPGNMWKQPXT347(H)34 - 104 U/L08/12/2025 2:43 PM [facility] CtrCREATININE CLR CALC WVZHMQOQ21.0608/12/2025 2:43 PM [facility] CtrSpecimen (Source)Anatomical Location / LateralityCollection Method / VolumeCollection TimeReceived TimeOtherTopography unknown / Jkvtodc9908/12/2025 1:57 PM EDT 08/12/2025 2:05 PM EDT Narrative Authorizing ProviderResult TypeResult StatusKev Choi [facility] BLOOD ORDERABLESFinal ResultPerforming OrganizationAddressCity/State/ZIP CodePhone Number [facility] [address] [place] [address], [place] [address] [place] [address] from Last 3 [place] [address] Care Teams Team MemberRelationshipSpecialtyStart DateEnd Date Karie Mcfadden MD [address] [facility] [place] [phone] PCP - GeneralFamily Medicine06/29/23
--- OUTSIDE RECORDS SUMMARY | 2025-10-15 14:18 | XMS_ITS | Continuity of Care Document ---
Author Organization [facility] up Address [address] [id number] Insurance Providers Payer Plan Claims Address Claims Phone Policy Number Group Number Relation Employer Guarantor Name Guarantor Guarantor Address Guarantor Phone [id number] Tripgjb[address] [place], [place] [address]Fsszkn of [id number] [id number], [place] [address] [place] [address] [place], [place] [address]fyt:[phone] [place] [address] Problems Condition ICD9 code ICD10 code SNOMED code Start Date End Date S tatus Syncope and collapse R55112/13/2023ctiveCerebrovascular disease, pnviobbjoprF22.9112/13/2023ctiveType 2 diabetes mellitus with diabetic chronic kidney rgailwtU92.22112/13/2023ctive Hyperlipidemia, prvlvsowmgdH77.5119554BuyphgQfmcaupaamwvZ60.511 ActiveUnspecified uzaauhgfJ31.9112/13/2023ctiveOther girouxxeevkR77.8911 ActiveGastro-esophageal reflux disease without mfgjpjncdyeW95.912/ctive Other jeayxyzflnhfW87.0912/4851FcyicpYhasxvI14.111ctiveHematemesis K92.011ctiveGastrointestinal hemorrhage, aliacopycafX17.211 ActiveUnilateral primary osteoarthritis, left kneeM17.12112/13/2023ctiveMuscle weakness (generalized)M62.8112ctiveChronic kidney disease, stage 4 (severe)N18.411ctiveCognitive communication nojdaqdM61.87239 ActiveHemorrhage, not elsewhere hjlqdlvjlnN7478ctiveLimitation of activities due to kwhdwazzgiX54.612ctiveLong term (current) use of owarlaiT99.411ctivePersonal history of transient ischemic attack (TIA), and cerebral infarction without residual vdqjzzjmD52.7311ctive Difficulty in walking, not elsewhere fbepvylobaP77.212ctiveAcquired absence of other specified parts of digestive gbyltG48.4911ctive Acquired absence of both cervix and hvtqwjK95.2473010/13/2024ctiveDysphagia, oral npmjtJ64.1112ctive Results Test Value / Unit Interpretation Reference Ran ge Blood chemistry[[id number]] Glucose [Mass/volume] in Ser um or Plasma [2345-7] 163 mg/dL N Blood chemistry[[id number]]?Glucose [Mass/volume] in Serum or Plasma [2345-7]128 mg/dLNBlood chemistry[[id number]]?Glucose [Mass/volume] in Serum or Plasma [2345-7]128 mg/dLNBlood chemistry[[id number]]?Glucose [Mass/volume] in Serum or Plasma [2345-7]138 mg/dLNBlood chemistry[[id number]]?Glucose [Mass/volume] in Serum or Plasma [2345-7] 117 mg/dLNBlood chemistry[[id number]]?Glucose [Mass/volume] in Serum or Plasma [2345-7]176 mg/dLNBlood chemistry[[id number]]?Glucose [Mass/volume] in Serum or Plasma [2345-7]177 mg/dLNBlood chemistry[[id number]]?Glucose [Mass/volume] in Serum or Plasma [2345-7] 117 mg/dLNBlood chemistry[[id number]]?Glucose [Mass/volume] in Serum or Plasma [2345-7]150 mg/dLNGlucose [Mass/volume] in Serum or Plasma [2345-7]150 mg/dLNBlood chemistry[[id number]]?Glucose [Mass/volume] in Serum or Plasma [2345-7]131 mg/dLNBlood chemistry[[id number]]?Glucose [Mass/volume] in Serum or Plasma [2345-7]130 mg/dLNBlood chemistry[[id number]]?Glucose [Mass/volume] in Serum or Plasma [2345-7] 143 mg/dLNBlood chemistry[[id number]]?Glucose [Mass/volume] in Serum or Plasma [2345-7]129 mg/dLNGlucose [Mass/volume] in Serum or Plasma [2345-7]129 mg/dLNBlood chemistry[[id number]]?Glucose [Mass/volume] in Serum or Plasma [2345-7]161 mg/dLNBlood chemistry[[id number]]?Glucose [Mass/volume] in Serum or Plasma [2345-7]138 mg/dLNBlood chemistry[[id number]]?Glucose [Mass/volume] in Serum or Plasma [2345-7] 143 mg/dLNBlood chemistry[[id number]]?Glucose [Mass/volume] in Serum or Plasma [2345-7]138 mg/dLNBlood chemistry[[id number]]?Glucose [Mass/volume] in Serum or Plasma [2345-7]141 mg/dLNBlood chemistry[[id number]]?Glucose [Mass/volume] in Serum or Plasma [2345-7] 147 mg/dLNBlood chemistry[[id number]]?Glucose [Mass/volume] in Serum or Plasma [2345-7]149 mg/dLNBlood chemistry[[id number]]?Glucose [Mass/volume] in Serum or Plasma [2345-7]128 mg/dLNBlood chemistry[[id number]]?Glucose [Mass/volume] in Serum or Plasma [2345-7] 160 mg/dLNBlood chemistry[[id number]]?Glucose [Mass/volume] in Serum or Plasma [2345-7]156 mg/dLNBlood chemistry[[id number]]?Glucose [Mass/volume] in Serum or Plasma [2345-7]134 mg/dLNBlood chemistry[[id number]]?Glucose [Mass/volume] in Serum or Plasma [2345-7] 134 mg/dLNBlood chemistry[[id number]]?Glucose [Mass/volume] in Serum or Plasma [2345-7]173 mg/dLNBlood chemistry[[id number]]?Glucose [Mass/volume] in Serum or Plasma [2345-7]183 mg/dLNBlood chemistry[[id number]]?Glucose [Mass/volume] in Serum or Plasma [2345-7] 167 mg/dLNBlood chemistry[[id number]]?Glucose [Mass/volume] in Serum or Plasma [2345-7]115 mg/dLNBlood chemistry[[id number]]?Glucose [Mass/volume] in Serum or Plasma [2345-7]115 mg/dLNBlood chemistry[[id number]]?Glucose [Mass/volume] in Serum or Plasma [2345-7] 219 mg/dLNBlood chemistry[[id number]]?Glucose [Mass/volume] in Serum or Plasma [2345-7]197 mg/dLNBlood chemistry[[id number]]?Glucose [Mass/volume] in Serum or Plasma [2345-7]143 mg/dLNGlucose [Mass/volume] in Serum or Plasma [2345-7]143 mg/dLNBlood chemistry[[id number]]?Glucose [Mass/volume] in Serum or Plasma [2345-7]149 mg/dLNBlood chemistry[[id number]]?Glucose [Mass/volume] in Serum or Plasma [2345-7] 133 mg/dLNBlood chemistry[[id number]]?Glucose [Mass/volume] in Serum or Plasma [2345-7]134 mg/dLNBlood chemistry[[id number]]?Glucose [Mass/volume] in Serum or Plasma [2345-7]116 mg/dLNBlood chemistry[[id number]]?Glucose [Mass/volume] in Serum or Plasma [2345-7] 158 mg/dLNBlood chemistry[[id number]]?Glucose [Mass/volume] in Serum or Plasma [2345-7]142 mg/dLNBlood chemistry[[id number]]?Glucose [Mass/volume] in Serum or Plasma [2345-7]147 mg/dLNBlood chemistry[[id number]]?Glucose [Mass/volume] in Serum or Plasma [2345-7] 185 mg/dLNBlood chemistry[[id number]]?Glucose [Mass/volume] in Serum or Plasma [2345-7]174 mg/dLNBlood chemistry[[id number]]?Glucose [Mass/volume] in Serum or Plasma [2345-7]149 mg/dLNBlood chemistry[[id number]]?Glucose [Mass/volume] in Serum or Plasma [2345-7] 261 mg/dLNBlood chemistry[[id number]]?Glucose [Mass/volume] in Serum or Plasma [2345-7]244 mg/dLNBlood chemistry[[id number]]?Glucose [Mass/volume] in Serum or Plasma [2345-7]174 mg/dLNBlood chemistry[[id number]]?Glucose [Mass/volume] in Serum or Plasma [2345-7] 161 mg/dLNBlood chemistry[[id number]]?Glucose [Mass/volume] in Serum or Plasma [2345-7]140 mg/dLNBlood chemistry[[id number]]?Glucose [Mass/volume] in Serum or Plasma [2345-7]161 mg/dLNBlood chemistry[[id number]]?Glucose [Mass/volume] in Serum or Plasma [2345-7] 238 mg/dLNBlood chemistry[[id number]]?Glucose [Mass/volume] in Serum or Plasma [2345-7]169 mg/dLNTuberculosis reaction wheal[73513-6]? Tuberculosis reaction wheal [24636-1]0 mmNEG Allergies, adverse reactions, alerts Substance Reaction Date Status Type lenalidomide 10/13/2024Non Drugoxybutynin tuqsebkf79/30/2024Non Jbmnqfwlsgicnc86/30/2024Non Drug Immunizations Vaccine Route Date Status COVID-19 Vaccine Unassigned Route of Administration Refused Medications Medication Instructions Route Dosage Frequency Start Date Stop Date Indications Status amlodipine 5 mg tablet (amlodipine) 5 mg, oral, Once A Day oral 1.0 1.0 d 10/29 Cerebrovascular disease, unspecified Active atorvastatin 40 mg tablet (atorvastatin) 40 mg, oral, Once A Day oral 1.0 1.0 d 10/29 Hyperlipidemia, unspecified Active carvedilol 12.5 mg tablet (carvedilol) 12.5 mg, oral, Twice A Day oral 1.0 12.0 h 10/29 Paroxysmal atrial fibrillation Active cholecalciferol (vitamin D3) 25 mcg (1,000 unit) capsule (cholecalciferol (vitamin D3)) 1000 unit, oral, At Bedtime oral 1.0 Unilateral primary osteoarthritis, left kneeActiveColace (docusate sodium) 100 mg capsule (Colace (docusate sodium))100 mg, oral, Once A Dayoral1.01.0 d1Other constipationActiveEliquis (apixaban) 2.5 mg tablet (Eliquis (apixaban))2.5 mg, oral, Twice A Dayoral1.012.0 h aroxysmal atrial fibrillationActiveferrous sulfate 325 mg (65 mg iron) tablet,delayed release (DR/EC) (ferrous sulfate)1 tablet, oral, Once A Dayoral1.01.0 d1Gastrointestinal hemorrhage, unspecifiedActiveHumulin N NPH Insulin KwikPen (insulin nph isoph u-100 human) 100 unit/mL (3 mL) insulin pen (Humulin N NPH Insulin KwikPen (insulin nph isoph u-100 human))10 units, subcutaneous, Twice A Daysubcutaneous1.012.0 10/15/2024 10/29/2024Type 2 diabetes mellitus with diabetic chronic kidney diseaseActive omega-3 acid ethyl esters 1 gram capsule (omega-3 acid ethyl esters)1 capusle, oral, Twice A Dayoral1.012.0 erebrovascular disease, unspecifiedActiveomeprazole 20 mg tablet,delayed release (DR/EC) (omeprazole)1 tab, oral, Once A Day, GERDoral1.01.0 d1Gastro-esophageal reflux disease without esophagitisActiveSlow-Mag (magnesium chloride) 71.5 mg tablet,delayed release (DR/EC) (Slow-Mag (magnesium chloride))one tablet, oral, Once A Dayoral1.01.0 d112/16/4Paroxysmal atrial fibrillationActive afgax-4k-lzw-epa-fish oil-D3 360 mg-1,200 mg -1,000 unit capsule (dexei-9i-ygo-epa-fish oil-D3)1 capsule, oral, Twice A Dayoral1.012.0 h /4Cerebrovascular disease, unspecifiedActiveomeprazole 40 mg capsule,delayed release(DR/EC) (omeprazole)40 mg, oral, Once A Dayoral1.01.0 d Gastrointestinal hemorrhage, unspecifiedActiveColace (docusate sodium) 100 mg capsule (Colace (docusate sodium))100 mg, oral, Once A Dayoral1.01.0 d1/Other constipationActiveSlow-Mag (magnesium chloride) 71.5 mg tablet,delayed release (DR/EC) (Slow-Mag (magnesium chloride)) one tablet, oral, Once A Dayoral1.01.0 d1/4Paroxysmal atrial fibrillationActive Vital Signs Date Vital Result Comment 10/23/2024 01:59 PM Body Weight 195 [lb_av] Body Mass Index31.47 kg/m210/23/2024 11:54 PZVeqogqefzsh56.1 [degF]Oxygen Utievuljgx75 %Respiratory Rate20 /minHeart Rate71 /minBlood Pressure Aproxkwb033 mm[Hg]Blood Pressure Dflvonrzq20 mm[Hg]10/22/2024 09:55 SIEhoelnagefs85.2 [degF]Oxygen Yquttxuzcs16 %Respiratory Rate20 /minHeart Rate65 /minBlood Pressure Ctmmzuql049 mm[Hg]Blood Pressure Paohbxkgf70 mm[Hg]10/21/2024 09:47 AM Zlhxoiishkg02 [degF]Oxygen Rzmwgoqjdq96 %Respiratory Rate18 /minHeart Rate81 /minBlood Pressure Dxbwwahn558 mm[Hg]Blood Pressure Pttflslbp87 mm[Hg]10/20/2024 09:42 LSTlkuzdeigqz79.8 [degF]Oxygen Ffehtyspej23 %Respiratory Rate18 /minHeart Rate86 /minBlood Pressure Bqkudioq129 mm[Hg]Blood Pressure Fwiomiiqe17 mm[Hg] 10/19/2024 12:31 SJIeqdrxmaapv68.4 [degF]Oxygen Tiabmropal12 %Respiratory Rate18 /minHeart Rate76 /minBlood Pressure Xvvjywft587 mm[Hg]Blood Pressure Diastolic 70 mm[Hg]10/18/2024 01:47 LNKbcfjqnamfd63.3 [degF]Oxygen Uxsvajwdmq79 % Respiratory Rate18 /minHeart Rate80 /minBlood Pressure Hmhmdauq149 mm[Hg]Blood Pressure Yviytdwfh12 mm[Hg]10/18/2024 01:47 NPJolyibtkvjv64.3 [degF]Oxygen Lxhumlzrle73 %Respiratory Rate16 /minHeart Rate76 /minBlood Pressure Ibnqtmqa809 mm[Hg]Blood Pressure Vpazwnriy22 mm[Hg]10/17/2024 07:36 GXDpwxxybrahp49.2 [degF]Oxygen Tuhyjatdxv19 %Respiratory Rate16 /minHeart Rate74 /minBlood Pressure Oyvdtezl833 mm[Hg]Blood Pressure Imheltqbu12 mm[Hg]10/17/2024 11:53 AM Sznqltneexd09 [degF]Oxygen Kbdlmiwdfd77 %Respiratory Rate18 /minHeart Rate80 /minBlood Pressure Abzcqxbb543 mm[Hg]Blood Pressure Glzwudnhh18 mm[Hg]10/17/2024 03:02 WXLouevpirmxe63.8 [degF]Oxygen Cgbalwbjjf38 %Respiratory Rate18 /minHeart Rate85 /minBlood Pressure Jrknzfxv664 mm[Hg]Blood Pressure Pkvqxejgi74 mm[Hg] 10/14/2024 01:02 PMBody Wpctge49 [in_us]Body Utjghk911.5 [lb_av]Body Mass Index 31.55 kg/m210/24/2024 11:29 LDXtpnucijcvq45 [degF]Oxygen Uvyhuincnu41 % Respiratory Rate18 /minHeart Rate80 /minBlood Pressure Oibgrykb469 mm[Hg]Blood Pressure Ntqqkjvdn59 mm[Hg]10/25/2024 09:43 GOYmqvbigkpng06.2 [degF]Oxygen Tftmelpepi20 %Respiratory Rate16 /minHeart Rate84 /minBlood Pressure Hlyfawyd871 mm[Hg]Blood Pressure Qcaxnywpj95 mm[Hg] Social History No smoking Hx information available Encounters Type CPT Code Date Location Provider Indication s encounter report 10/14/2024 12:40 PM - 10/26/2024 01:37 Gaudencio Mcfadden MD01 Advance Directives Directive Description Verification Date Supporting Document(s) Other Directive
[2025-10-15 14:28] VITALS: PULSE 64
--- NOTE | 2025-10-15 14:28 | ECG_ITS ---
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 Measurements Intervals [place] Rate: 58 P: 90 CO: 268 QRS: 75 QRSD: 106 T: 80 QT: 456 QTc: 454 Interpretive Statements 1100 Sinus rhythm 2231 First degree AV block [address] depression 8304 Long QTc interval 9150 abnormal ECG Compared to ECG 07/08/2025 17:16:20 No significant changes Electronically Signed On 10-16-2025 19:46:42 EST by WILLARD OLSEN M.D.
--- NOTE | 2025-10-15 14:29 | ED.GENADUL1 ---
HPI HPI - General Adult General Chief complaint: Weakness Stated complaint: LOWER EXTREMITY WEAKNESS Time Seen by Provider: 10/15/25 14:18 Source: patient Mode of arrival: Wheelchair Limitations: no limitations History of Present Illness HPI narrative: 85 year old female presents to the ED for bilateral leg weakness, N/T. States it occurred yesterday morning and again this morning. It lasts for 1-2 hours then goes away. States it makes her feel like they are going to give out on her. Reports blurred vision. Denies fever, chills, MCMAHON, dizziness. Denies CP, SOB, N/V, urinary symptoms. Denies pain to her head, neck, and back. She has had diarrhea for the past 3 days. Reports having a CVA in the past. She has residual weakness to her right leg from the previous CVA. Related Data Home Medications ?Medication ?Instructions ?Recorded ?Confirmed atorvastatin 40 mg tablet 40 mg PO DAILY 04/19/23 10/15/25 carvedilol 12.5 mg tablet 6.25 mg PO Q12H 04/19/23 10/15/25 cholecalciferol (vitamin D3) 25 25 mcg PO BEDTIME 06/19/23 10/15/25 mcg (1,000 unit) capsule omega 8-mmw-vhu-fish oil 300 1 cap PO DAILY 06/19/23 07/08/25 mg-1,000 mg capsule (Fish Oil) magnesium chloride 71.5 mg 71.5 mg PO DAILY 10/10/24 07/08/25 (magnesium chloride) tablet,delayed release (Slow-Mag) furosemide 40 mg tablet 40 mg PO DAILY 02/04/25 02/11/25 sodium citrate-citric acid 490 5 ml PO DAILY 02/05/25 02/11/25 mg-640 mg/5 mL oral solution (Oracit) flecainide 50 mg tablet 50 mg PO Q12H 02/11/25 10/15/25 sodium bicarbonate 650 mg tablet mg 07/08/25 Previous Rx's ?Medication ?Instructions ?Recorded apixaban 2.5 mg tablet (Eliquis) 2.5 mg PO BID #60 tabs 10/14/24 ferrous sulfate 325 mg (65 mg 325 mg PO DAILY #30 tabs 10/14/24 iron) tablet meclizine 25 mg tablet 25 mg PO TID PRN dizziness #14 tabs 07/08/25 Allergies Allergy/AdvReac Type Severity Reaction Status Date / Time lenalidomide (From Revlimid) Allergy Rash Verified 02/04/25 15:57 pregabalin (From Lyrica) Allergy Rash Verified 02/04/25 15:57 oxybutynin AdvReac Mild Rash Verified 02/04/25 15:57 Opioid HPI Opioid Management Most Recent Opioid Data: Last Pain Scale 2 02/05/25, 13:37 Last Pain Intensity 2 02/05/25, 13:37 Last ORT Total Score 0 02/04/25, 16:55 Last ORT Risk Category Low Risk 02/04/25, 16:55 Review of Systems ROS Constitutional Denies: fever, chills or fatigue Eyes Reports: blurry vision Ears, nose, mouth, and throat Denies: throat pain or nasal congestion Cardiovascular Denies: chest pain Respiratory Denies: shortness of breath or cough Gastrointestinal Reports: diarrhea; Denies: abdominal pain, nausea or vomiting Genitourinary Denies: painful urination, urinary frequency or urinary urgency Musculoskeletal Denies: back pain, neck pain or extremity pain Integumentary/Breast Denies: rash Neurological Reports: numbness in extremities and weakness in extremities; Denies: headache, dizziness or slurred speech [facility] Medical History (Updated 10/15/25 @ 17:07 by Priscila Lyles) Chronic heart failure with preserved ejection fraction (HFpEF) ?I50.32 - Chronic diastolic (congestive) heart failure (ICD-10) Paroxysmal atrial fibrillation ?I48.0 - Paroxysmal atrial fibrillation (ICD-10) CKD (chronic kidney disease) stage 4, GFR 15-29 ml/min ?N18.4 - Chronic kidney disease, stage 4 (severe) (ICD-10) Type 2 diabetes mellitus with hyperglycemia ?E11.65 - Type 2 diabetes mellitus with hyperglycemia (ICD-10) Multiple myeloma ?C90.00 - Multiple myeloma not having achieved remission (ICD-10) Hypertension ?I10 - Essential (primary) hypertension (ICD-10) Anterior epistaxis ?R04.0 - Epistaxis (ICD-10) Upper respiratory infection ?J06.9 - Acute upper respiratory infection, unspecified (ICD-10) Acute bronchospasm ?J98.01 - Acute bronchospasm (ICD-10) H/O epistaxis ?Z87.898 - Personal history of other specified conditions (ICD-10) Encounter for removal of nasal pack ?Z48.00 - Encounter for change or removal of nonsurgical wound dressing (ICD-10) Upper respiratory tract infection due to COVID-19 virus ?U07.1 - COVID-19 (ICD-10) ?J06.9 - Acute upper respiratory infection, unspecified (ICD-10) UTI (urinary tract infection) ?N39.0 - Urinary tract infection, site not specified (ICD-10) Acute on chronic diastolic (congestive) heart failure ?I50.33 - Acute on chronic diastolic (congestive) heart failure (ICD-10) Viral URI with cough ?J06.9 - Acute upper respiratory infection, unspecified (ICD-10) Congestive heart failure ?I50.9 - Heart failure, unspecified (ICD-10) A-fib ?I48.91 - Unspecified atrial fibrillation (ICD-10) CHF (congestive heart failure) ?I50.9 - Heart failure, unspecified (ICD-10) Gastrointestinal hemorrhage with melena ?K92.1 - Melena (ICD-10) Upper gastrointestinal bleed ?K92.2 - Gastrointestinal hemorrhage, unspecified (ICD-10) Syncope and collapse ?R55 - Syncope and collapse (ICD-10) GI bleeding ?K92.2 - Gastrointestinal hemorrhage, unspecified (ICD-10) HLD (hyperlipidemia) ?E78.5 - Hyperlipidemia, unspecified (ICD-10) H/O: CVA (cerebrovascular accident) ?Z86.73 - Personal history of transient ischemic attack (TIA), and cerebral infarction without residual deficits (ICD-10) Type 2 diabetes mellitus ?E11.9 - Type 2 diabetes mellitus without complications (ICD-10) Cerebrovascular disease ?I67.9 - Cerebrovascular disease, unspecified (ICD-10) Hypertension ?I10 - Essential (primary) hypertension (ICD-10) Cataract ?H26.9 - Unspecified cataract (ICD-10) Stroke ?I63.9 - Cerebral infarction, unspecified (ICD-10) Osteoarthritis of left knee ?M17.12 - Unilateral primary osteoarthritis, left knee (ICD-10) Surgical History Hx of cholecystectomy ?Z90.49 - Acquired absence of other specified parts of digestive tract (ICD-10) History of hysterectomy ?Z90.710 - Acquired absence of both cervix and uterus (ICD-10) Family History Mother Family history of CHF (congestive heart failure) Family history of diabetes mellitus Family history of stroke Sister Family history of CHF (congestive heart failure) Family history of diabetes mellitus Family history of hypertension Grandmother Family history of cancer Family history of diabetes mellitus Brother No problems noted. Father No problems noted. Social History (Updated 02/04/25 @ 17:10 by Marisa Berman RN) Within the past year, how often did you have a drink containing alcohol: never Within the past year, how often did you have six or more drinks on one occasion: never Score interpretation: A score less than 3 is consistent with normal alcohol consumption. 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 Highest level of school completed/degree received: some college, no degree Do you want help with school or training: No Are you now , , , , never or living with a partner: Little interest or pleasure in doing things: not at all Feeling down, depressed, or hopeless: not at all Feel stressed/tense/nervous/anxious/difficulty sleeping: not at all Do you think of yourself as: straight/heterosexual Gender Identity: female Exam Constitutional Vital Signs, click to edit/add: Last Vital Signs Temp 97.7 F 10/15/25 14:10 Pulse 63 10/15/25 14:10 Resp 18 10/15/25 14:10 BP 115/80 10/15/25 14:48 Pulse Ox 98 10/15/25 14:10 O2 Del Method Room Air 10/15/25 14:10 Common normals: no apparent distress and oriented x3 General appearance: cooperative HENMT Common normals: external ears normal, moist oral mucous membranes and oropharynx normal Eye Common normals: PERRL, EOMs intact bilaterally, conjunctivae normal and no scleral icterus Neck & C-Spine Common normals: supple Chest Chest: symmetrical chest wall rise Respiratory Common normals: normal respiratory effort and clear to auscultation bilaterally Effort & inspection: able to speak in complete sentences and symmetric chest movement Cardio Common normals: regular rate and regular rhythm GI Common normals: soft to palpation Neuro Common normals: oriented x3, CN's II-XII intact bilaterally, moves all extremities and no focal motor deficits Sensorium/orientation: awake and alert Speech: speech normal Other: NIH Stroke Scale/Score (NIHSS) from [email or web address] on 10/15/2025 All calculations should be rechecked by clinician prior to use RESULT SUMMARY: 0 points NIH Stroke Scale INPUTS: 1A: Level of consciousness ?> 0 = Alert; keenly responsive 1B: Ask month and age ?> 0 = Both questions right 1C: 'Blink eyes' & 'squeeze hands' ?> 0 = Performs both tasks 2: Horizontal extraocular movements ?> 0 = Normal 3: Visual chappell ?> 0 = No visual loss 4: Facial palsy ?> 0 = Normal symmetry 5A: Left arm motor drift ?> 0 = No drift for 10 seconds 5B: Right arm motor drift ?> 0 = No drift for 10 seconds 6A: Left leg motor drift ?> 0 = No drift for 5 seconds 6B: Right leg motor drift ?> 0 = No drift for 5 seconds 7: Limb Ataxia ?> 0 = No ataxia 8: Sensation ?> 0 = Normal; no sensory loss 9: Language/aphasia ?> 0 = Normal; no aphasia 10: Dysarthria ?> 0 = Normal 11: Extinction/inattention ?> 0 = No abnormality Course Vital Signs Vital signs: Vital Signs Temperature 97.7 F 10/15/25 14:10 Pulse Rate 63 10/15/25 14:10 Respiratory Rate 18 10/15/25 14:10 Blood Pressure 170/80 H 10/15/25 14:10 Pulse Oximetry 98 10/15/25 14:10 Oxygen Delivery Method Room Air 10/15/25 14:10 Temperature 97.7 F 10/15/25 14:10 Pulse Rate 63 10/15/25 14:10 Respiratory Rate 18 10/15/25 14:10 Blood Pressure 115/80 10/15/25 14:48 Pulse Oximetry 98 10/15/25 14:10 Oxygen Delivery Method Room Air 10/15/25 14:10 Medical Decision Making MDM Narrative Medical decision making narrative: Laboratory studies were unremarkable when compared to previous. Urinalysis was unremarkable. CT scan of the head was negative for acute findings. Findings were discussed with the patient and her daughter. She will be discharged home at the recommendation of the ED attending. Follow up with pcp for a recheck, further evaluation and treatment. Return to the ED for worsening symptoms. Medical Records Medical records reviewed: Yes I reviewed the patient's medical records Lab Data Lab results reviewed: Yes I reviewed the patient's lab results Labs: Lab Results 10/15/25 10/15/25 Range/Units 14:26 14:35 WBC 9.5 (4.0-11.0) 10^3/uL RBC 3.99 L (4.20-5.40) 10^6/uL Hgb 12.6 (12.0-16.0) g/dL Hct 38.6 (36.0-48.0) % MCV 96.7 (81.0-99.0) fL MCH 31.6 (26.7-34.0) pg MCHC 32.6 (29.9-35.2) g/dL RDW 12.6 (11.0-15.0) % Plt Count 193 (150-450) 10^3/uL MPV 10.9 (9.5-13.5) fL Neut % (Auto) 72.2 (43.0-75.0) % Lymph % (Auto) 19.3 L (20.5-60.0) % [place] % (Auto) 6.6 (1.7-12.0) % Eos % (Auto) 1.4 (0.9-7.0) % Baso % (Auto) 0.3 (0.2-2.0) % Neut # (Auto) 6.8 H (1.4-6.5) 10^3/uL Lymph # (Auto) 1.8 (1.2-3.8) 10^3/uL [place] # (Auto) 0.6 (0.3-0.8) 10^3/uL Eos # (Auto) 0.1 (0.0-0.7) 10^3/uL Baso # (Auto) 0.0 (0.0-0.1) 10^3/uL Abs Immat Gran (auto) 0.02 (0.00-0.03) 10^3/uL Imm/Tot Granulo (auto) 0.2 (0.0-0.5) % Sodium 140 (136-145) mmol/L Potassium 5.3 H (3.5-5.1) mmol/L Chloride 107 (98-107) mmol/L Carbon Dioxide 24.7 (21.0-32.0) mmol/L Anion Gap 13.6 BUN 34.0 H (7.0-18.0) mg/dL Creatinine 2.55 H (0.55-1.02) mg/dL Est GFR ( Amer) 22 L (>=60 mL/min/1.73m^2) Est GFR (Non-Af Amer) 18 L (>=60 mL/min/1.73m^2) BUN/Creatinine Ratio 13.3 Glucose 122 H (74-106) mg/dL Calcium 8.8 (8.5-10.1) mg/dL Magnesium 2.2 (1.8-2.4) mg/dL Total Bilirubin 0.4 (0.2-1.0) mg/dL AST 14 L (15-37) U/L ALT 16 (14-59) U/L Alkaline Phosphatase 141 H (46-116) U/L Total Protein 7.1 (6.4-8.2) g/dL Albumin 3.1 L (3.4-5.0) g/dL Globulin 4.0 g/dL Albumin/Globulin Ratio 0.8 Urine Color Lt. yellow (YELLOW) Urine Clarity Clear (CLEAR) Urine pH 7.0 (5.0-9.0) Ur Specific [place] 1.015 (1.005-1.025) Urine Protein 100 A (NEG/TRACE) mg/dL Urine Glucose (UA) Negative (NEGATIVE) mg/dL Urine Ketones Negative (NEGATIVE) mg/dL Urine Occult Blood Trace-i (NEGATIVE) Urine Nitrite Negative (NEGATIVE) Urine Bilirubin Negative (NEGATIVE) Urine Urobilinogen 0.2 (0.2-1.0) EU/dL Ur Leukocyte Esterase Negative (NEGATIVE) Urine RBC 0-2 (0-2) #/HPF Urine WBC None seen (NONE SEEN) #/HPF Ur Squamous Epith Cells Few A (NONE/RARE) #/LPF Urine Crystals None seen (None Seen) #/HPF Urine Bacteria Trace A (NONE SEEN) #/HPF Urine Casts None seen (NONE SEEN) #/LPF Urine Mucus None seen (NONE SEEN) Ur Culture Indicated? No Imaging Data Chest x-ray: Attestation: I have reviewed the pertinent imaging results. Radiologist's impression: ITS Impressions Head CT 10/15/25 14:57 IMPRESSION: NO ACUTE INTRACRANIAL ABNORMALITY. CHRONIC MICROVASCULAR CHANGES WITH REMOTE AREAS OF STROKE NOTED ABOVE. Impression dictated by: Rolando Stringer M.D. 10/15/2025 3:34 PM Dictation Location: [place] [address] Electronically authenticated by: [id number] Y Date: 10/15/2025 15:34 ECG Data Attestation: ?I have reviewed the pertinent ECG results. (EKG was reviewed by the attending physician. It showed sinus rhythm at a rate of 58. First degree AV block. No STEMI.) Interpretation: Measurements Intervals [place] Rate: 58 P: 90 SC: 268 QRS: 75 QRSD: 106 T: 80 QT: 456 QTc: 454 Interpretive Statements 1100 Sinus rhythm 2231 First degree AV block [address] depression 8304 Long QTc interval 9150 abnormal ECG No previous ECG available for comparison Discharge Plan Discharge Chief Complaint: Weakness Clinical Impression: Paresthesia of lower extremity, Bilateral leg weakness Patient Disposition: Home, Self-Care Time of Disposition Decision: 17:07 Condition: Good Mode of Transportation: Private Vehicle Prescriptions / Home Meds: No Action atorvastatin 40 mg tablet 40 mg PO DAILY carvedilol 12.5 mg tablet 6.25 mg PO Q12H cholecalciferol (vitamin D3) 25 mcg (1,000 unit) capsule 25 mcg PO BEDTIME omega 8-mge-ihv-fish oil [Fish Oil] 300-1,000 mg capsule 1 cap PO DAILY flecainide 50 mg tablet 50 mg PO Q12H Slow-Mag 71.5 mg tablet,delayed release (DR/EC) 71.5 mg PO DAILY Eliquis 2.5 mg tablet 2.5 mg PO BID Qty: 60 0RF ferrous sulfate 325 mg (65 mg iron) tablet 325 mg PO DAILY Qty: 30 0RF furosemide 40 mg tablet 40 mg PO DAILY sodium citrate-citric acid [Oracit] 490-640 mg/5 mL solution 5 ml PO DAILY sodium bicarbonate 650 mg tablet meclizine 25 mg tablet 25 mg PO TID PRN (Reason: dizziness) Qty: 14 0RF Print Language: Martiniquais Instructions: Paresthesia (ED) Additional Instructions: Return to the ED for worsening symptoms. Referrals: Karie Mcfadden MD [Primary Care Provider, Family Practice] - 1 week
--- OUTSIDE RECORDS SUMMARY | 2025-10-15 14:36 | XMS_ITS | CCD ---
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 Name Role Phone Curt Clark Unavailable Unavailable Unavailable CURT CLARK Primary Care Physician Lopez, Akin Unavailable Quita Ayon Unavailable MD Curt Clark Primary Care Provider DO Claire Choi II Attending Provider Curt Clark Unavailable MD Curt Clark Primary Care Provider DO Claire Choi II Attending Provider DR [...] Care UnaMD Curt Ramirez Primary Care Provider DO Claire Choi II Attending Provider [phone] MD Nehemias Fernandez II Attending Provider [phone] Nehemias Fernandez II Unavailable Curt Clark MD Primary Care Provider Unavailable Curt Clark MD Primary Care Provider MD Curt Clark Primary Care Provider Steph HOLLINGSWORTH, DO Claire J Attending Provider [phone] MD Curt Clark Primary Care Provider RAMAKRISHNA Connolly Attending Provider MD Curt Clark Primary Care Provider Steph HOLLINGSWORTH, DO Claire J Attending Provider MD Curt Clark Attending Provider Curt Clark MD Primary Care Provider MD Curt Clark Primary Care Provider Steph II, DO Claire J Attending Provider Steph HOLLINGSWORTH, DO Claire J Attending Provider [phone] ELICIA RHODES Referring Unavailable CURT CLARK Primary [...] RAMAKRISHNA Pretty Other Provider Belcik Jr, DO Gwinner L Other Provider MD Trent Patterson Attending Provider Curt Clark MD Primary Care Provider Jesse Valdez DO Emergency Provider Pool Buck MD Admit Provider Joe VELAZQUEZ, Cristiano Ferguson Other Provider Jen VELAZQUEZ, Sherron Other Provider Pj Montes MD Other Provider Krisatn Pretty APRN Other Provider Cathy RODRIGUEZ, Gwinner L Other Provider Yesenia VELAZQUEZ, Trent Attending Provider Flako Huggins DO Attending Provider Flako Huggins DO Attending Provider Curt Clark MD Primary Care Provider Misti Connolly APRN Attending Provider [facility] Emergency Provider Jonathan Valenzuela MD Admit Provider Jonathan Valenzuela MD Attending Provider Akin Suarez MD Other Provider Unavailable Primary [facility] Attending Provider Elicia Rhodes MD Referring Provider Curt Clark MD Primary Care Provider Curt Clark MD Primary Care Provider Misti Connolly APRN Attending Provider Mcadams , Louis Emergency Provider Jonathan Valenzuela MD Admit Provider Jonathan Valenzuela MD Attending Provider Kristen Suarez MD Provider Elicia Rhodes MD Attending Provider Elicia Rhodes MD Referring Provider Curt Clark MD Primary Care Provider [phone] Misti Connolly APRN Attending Provider Louis Mcadams DO Emergency Provider Jonathan Valenzuela MD Admit Provider Jonathan Valenzuela MD Attending Provider [phone] Lopez VELAZQUEZ, Akin Other Provider Elicia Rhodes MD Attending Provider Kendra VELAZQUEZ, Elicia Referring Provider Jerrica Overton APRN Attending Provider Curt Clark MD Primary Care Provider [phone] Curt Clark MD Primary Care Provider LIA VELAZCO Attending Unavailable TRABOULSSI, MOURSALOMEF Attending [...] Care Provider Phillip Arroyo DO Attending Provider [phone] Renetta Mcmanus CMA Attending Provider Unavaila Claire [...] Allergen(s)Allergy TypeDate of OnsetReaction(s) Facilitylenalidomide (1 source)lenalidomideDrug Jflhylm95-38-8445Jsvl, itchingOhio State East Hospitaloxybutynin (1 source)oxybutyninDrug Bskedee70-38-0800Xmjh, rash, hivesOhio State East Hospitalpregabalin (1 source)pregabalinDrug Exekaut43-33-3063bfnkhkOhioHealth (20 sources)oxybutynin; Translations: [oxybutynin]Drug Cuiwwqy71-41-7517Vmjfx, Rash, OtherMP-[facility] DO Work Phone: (20 sources)lenalidomide; Translations: [lenalidomide]Drug Jyfclfh09-46-7608 Unknown, Rash, itching, Rash, itchingExecutive Urology of [facility] (20 sources)pregabalin; Translations: [pregabalin]Drug Tgpnsrd59-20-4906Ezonwtj, double visionExecutive [facility]rology of [facility] (11 sources)pregabalin; Translations: [Lyrica]Drug AllergyDOUBLE VISIONThe [facility] Repository (10 sources)REVILIDPropensity to adverse reactionsI-[facility] Quip Other (1 source)lenalidomideDrug Guaqdmv12-69-0043WjlMount Carmel Health System Repository (1 source)oxybutyninDrug Ofljbxq01-25-3753LafMount Carmel Health System Repository (1 source)Allergies ReconciledPropensity to adverse reactionsUnknoTexas County Memorial Hospital Quip Other (1 source)patient allergy list reviewed by nurse or physiciaPropensity to adverse ktzuxcvgs48-63-5804Ceiwvma:[facility] Quip Other (13 sources)Acetaminophen / HYDROcodoneDrug Kpplpcn31-77-1173[facility] (13 sources)PregabalinPropensity to adverse hndqlzezw18-20-8257JksxzIJHK Healthcare (9 sources)lenalidomideDrug Xmazjlg23-89-0909Djjl, [facility] (1 source)lenalidomideDrug Lwzuzwi61-71-3660XfsnykldvOhio State East Hospital Repository (1 source)oxybutyninDrug Llydqwe62-96-6100YnpeycyetOhio State East Hospital Repository (1 source)pregabalinDrug Dpjhjuv53-99-9069XmogigvkqOhio State East Hospital Repository Medications Current Medications MedicationDrug Class(es)DatesSig (Normalized)Sig (Original)atorvastatin 40 mg oral tablet (20 sources)HMG-CoA Reductase InhibitorStart: 05-65-7435Aqpyzgl Oral, Daily, Refills(s) 0 Start Date: 01/29/20 Status: OrderedStart: 92-44-1094abae 1 tablet by mouth once dailyStart: 07-14-2017 End: 16-93-3372euag 1 tablet by mouth at bedtimeAtorvastatin 20 mg Tablet Discontinued 1 TAB PO Bedtime July 14, 2017 12:00am August 23, 2018 8:42amazithromycin 250 mg oral tablet (5 sources)Macrolide AntimicrobialStart: 98-84-6055Nanzrggupjsj 250 MG as directed Orally 2 tabs po today, then 1 tab daily x 4 more days for 5 Aug, ActiveStart: 45-41-3768Adqchimqyuqh 250 MG Oral Tablet TAKE 2 TABLETS BY MOUTH ON DAY 1 THEN TAKE 1 TABLET BY MOUTH DAILY DAYS 2 THRU 5 UNTIL GONE Quantity: 6 Refills: 0 Ordered: 11-Feb-2022 DO Start : 11-Feb-2022 Complete benzonatate 200 mg oral capsule (4 sources)Non-narcotic AntitussiveStart: 82-39-8494nttq 1 capsule by mouth every eight hoursBenzonatate 200 MG 1 capsule Orally Three times a day for 10 day(s) Sep, ActiveStart: 60-17-1602crhe 1 capsule by mouth three times daily as neededBenzonatate 100 MG Oral Capsule TAKE ONE CAPSULE BY MOUTH THREE TIMES A DAY NEEDED Quantity: 20 Refills: 0 Ordered: 11-Feb-2022 DO Start : 11-Feb-2022 Completecarvedilol 12.5 mg oral tablet (20 sources)alpha-Adrenergic Valentina, beta-Adrenergic BlockerStart: 04-01-2025 take 1 tablet by mouth once daily at mealtimeStart: 03-20-2025 End: 85-83-3061egbc 1 tablet by mouth twice dailycarvedilol (Coreg) 6.25 mg tablet Indications: Essential hypertension Take 1 tablet (6.25 mg) by mouth 2 times daily (morning and late afternoon). 180 tablet 3 03/20/2025 05/24/2025 Discontinued (MedList Cleanup)Start: 11-07-2019 End: 62-70-2219qidj 1 tablet by mouth twice daily at mealtimeCarvedilol (Coreg) 12.5 mg tablet Discontinued 12.5 MG PO Twice daily 60 November 07, 2019 1:00am April 01, 2025 3:48pm must administer with a meal/foodStart: 07-14-2017 End: 63-09-6082audd 1 tablet by mouth twice dailyCarvedilol 6.25 mg Tablet Discontinued 6.25 MG PO Twice daily July 14, 2017 12:00am November 07, 2019 3:50pmStart: 74-14-1950nrco 2 tablets by mouth twice dailycarvedilol 3.125 mg Tab 6.25 mg = 2 tab(s), Oral, BID Start Date: 10/05/16 Status: OrderedStart: 82-00-5622aabm 2 tablets by mouth twice dailycarvedilol 3.125 mg Tab 6.25 mg = 2 tab(s), Oral, BID Start Date: 10/05/16 Status: OrderedStart: 52-59-1379fnqk 2 tablets by mouth twice dailycarvedilol 3.125 mg Tab 6.25 mg = 2 tab(s), Oral, BID Start Date: 10/05/16 Status: Orderedtake 1 tablet by mouth twice daily carvedilol (Coreg) 3.125 mg tablet Take 1 tablet (3.125 mg) by mouth 2 times a day. Activecholecalciferol 0.025 mg oral capsule (20 sources)Vitamin DStart: 49-09-3016vlng 1 capsule by mouth once dailyStart: 08-10-2018 End: 57-11-7308Dmzqfgzkvsovrdf (Vitamin D3) (Vitamin D3) 5,000 unit Tablet Discontinued 1000 UNIT PO Daily August 10, 2018 12:00am January 01, 2025 5:08pmStart: 75-40-8740ppvj 1 tablet by mouth once dailyVitamin D3 5000 intl units oral tablet 5,000 International_Unit = 1 tab(s), Oral, Daily, Prophylaxis Start Date: 10/05/16 Status: Orderedtake 1 tablet by mouth once daily cholecalciferol (Vitamin D-3) 25 MCG (1000 UT) tablet Take 1 tablet (25 mcg) by mouth once daily. Activedaratumumab (3 sources)VK14-lftpzcvx Cytolytic AntibodyStart: 78-74-8911gzsmqyschrp mg, IV, q6wk, Refills(s) 0 Start Date: 12/17/19 Status: Ordereddocosahexaenoic acid 120 mg / eicosapentaenoic acid 180 mg oral capsule (18 sources)take 1 capsule by mouth twice dailyfish oil concentrate ([place]-3) 120-180 mg capsule Take 1 capsule (1 g) by mouth 2 times a day. Activetake 1 capsule by mouth twice dailyFish Oil 1000 MG Oral Capsule Take 1 capsule twice daily Quantity: 0 Refills: 0 Ordered: 25-Aug-2021 DO Activeferrous sulfate 325 mg delayed release oral tablet (20 sources)Start: 81-62-1293atqb 1 tablet by mouth once dailyStart: 10-14-2024 take 1 tablet by mouth at mealtimeferrous sulfate 325 (65 Fe) MG tablet Take 325 mg by mouth in the morning. Take with meals. 10/14/2024 Activeflecainide acetate 50 mg oral tablet (16 sources)AntiarrhythmicStart: 85-56-0806rhew 1 tablet by mouth once daily Start: 02-06-2025 End: 40-16-2384gzbx 1 tablet by mouth every twelve hoursFlecainide 50 mg tablet Discontinued 50 MG PO Every 12 hours February 11, 2025 12:00am April 01, 2025 3:48pmStart: 02-06-2025 End: 26-97-6476hkkz 1 tablet by mouth in the morningflecainide (Tambocor) 50 MG tablet Take 50 mg by mouth in the morning and 50 mg in the evening. 02/06/2025 02/06/2026 Activeinsulin isophane, human 100 unt/ml injectable suspension (20 sources)Start: 73-44-0728Lkklu: 14-73-0521vnbstc 15 [IU] by subcutaneous injection in the morninginsulin NPH, Isophane, (HumuLIN N) 100 UNIT/ML injection Inject 15 Units under the skin in the morning and 15 Units in the evening. Inject before meals. 07/05/2024 ActiveStart: 07-05-2024 End: 94-88-5119Fuvkrsq Nph Isoph U-100 Human (Humulin N Nph U-100 Insulin) 100 unit/mL suspension Discontinued 15 UNIT SUBCUT Daily July 05, 2024 1:13pm April 01, 2025 3:48pmStart: 01-04-2024 End: 32-93-5196Fokwchy Nph Isoph U-100 Human (Humulin N Nph U-100 Insulin) 100 unit/mL suspension Discontinued UNIT SUBCUT January 04, 2024 1:00am July 05, 2024 1:15pm FreeTextSi units (using [employer] brand) Subcutaneous 15 units twice a day; Note: Source Status: Taking; Provider: Gabo Devlin KStart: 01-04-2024 End: 34-65-5193Zncix: 08-10-2018 End: 02-42-2365Cpayqzl Nph Isoph U-100 Human (Humulin N Nph [...] release oral tablet (18 sources)Start: 09-19-2024 End: 67-88-5897eais 1 tablet by mouth once dailymeclizine hydrochloride 12.5 mg oral tablet (12 sources)Antiemetictake 1 tablet by mouth every twelve hoursMeclizine HCl 12.5 MG 1 tablet as needed Orally every 12 hrs for 10 days ActiveOmega 8-Ppc-Cyz-Fish Oil (Fish Oil) 1,000 (120-180) mg capsule (1 source)Start: 70-06-9126mloz 1 capsule by mouth twice dailyOmega-3 Fatty Acids (FISH OIL PO) (13 sources)[place]-3 Fatty Acids (FISH OIL PO) Take by mouth ActiveRelion insulin (3 sources)Start: 34-15-5871qzqipd 10 [IU] by subcutaneous injection at bedtime Relion insulin Relion insulin, 10 unit(s), SubCutaneous, Bedtime Start Date: 03/03/21 Status: OrderedXarelto (20 sources)Factor Xa InhibitorStart: 65-98-1588Jvmipmp Oral Start Date: 12/24/19 Status: OrderedStart: 11-07-2019 End: 96-57-6016dieg 1 tablet by mouth once daily at dinnerRivaroxaban (Xarelto) 15 mg tablet Discontinued 15 MG PO Daily November 07, 2019 1:00am Eligio rosario 2023 5:44pm must administer with evening meal0.25 mg, 0.5 mg dose 1.5 ml semaglutide 1.34 mg/ml pen injector (5 sources)Start: 33-66-7982Tulxowi (0.25 or 0.5 MG/DOSE) 2 MG/1.5ML 0.5mg Subcutaneous once weekly for 84 days March, Activesodium bicarbonate 650 mg oral tablet (20 sources)Start: 88-00-8083kazj 1 tablet by mouth twice dailyStart: 12-25-2024 End: 35-17-6039yfbh 2 tablets by mouth twice dailySodium Bicarbonate 650 mg tablet Discontinued 1300 MG PO Twice daily December 25, 2024 3:43pm December 25, 2024 3:58pmStart: 07-14-2017 End: 17-48-4249jxsv 1 tablet by mouth twice dailySodium Bicarbonate 650 mg tablet Discontinued 650 MG PO Twice daily December 25, 2024 3:58pm December 25, 2024 3:58pmStart: 07-14-2017 End: 65-04-7855ghdq 2 tablets by mouth three times dailySodium Bicarbonate 650 mg Tablet Discontinued 1300 MG PO Three times daily 0 September 18, 2024 1:00am December 25, 2024 3:43pmStart: 07-14-2017 End: 21-55-9998qaox 1 tablet by mouth twice dailySodium Bicarbonate [...] 50 mg oral tablet (3 sources)Opioid AgonistStart: 36-17-3609ixoe 1 tablet by mouth three times daily [...] b12 1 mg oral tablet (20 sources)Vitamin T72Wncdr: 43-51-8817Ndzcg: 90-23-9162Lxcuaeq B-12 1,000 microgram Start Date: 12/24/19 Status: OrderedStart: 05-02-2019 End: 09-50-8913yqxc 1 tablet by mouth once dailyCyanocobalamin (Vitamin [...] 1 capsule Orally Daily Active (20 sources)Start: 33-39-8310Jouqi: 03-15-2018 End: 75-41-5073Neglq: 07-14-2017 End: 17-52-0696Ndtpq: 07-14-2017 End: 07-05-2024 Completed/Discontinued Medications MedicationDrug Class(es)DatesSig (Normalized)Sig (Original)acetaminophen 325 mg / HYDROcodone bitartrate 5 mg oral tablet (20 sources)Opioid AgonistStart: 03-15-2018 End: 71-39-9766lnvh 1 tablet by mouth every four to six hours as needed for pain Hydrocodone-Acetaminophen 5-325 mg Tablet Discontinued 1 TAB PO EVERY 4-6 HOURS as needed for Pain March 15, 2018 12:00am July 04, 2018 11:54amStart: 03-15-2018 End: 70-65-7341dgwdvawbe 400 mg oral tablet (20 sources)Herpesvirus Nucleoside Analog DNA Polymerase Inhibitor, Herpes Simplex Virus Nucleoside Analog DNA Polymerase Inhibitor, Herpes Zoster Virus Nucleoside Analog DNA Polymerase InhibitorStart: 01-02-2024 End: 62-52-8114Wjpxckcvy 400 mg tablet Discontinued 0 .ROUTE .COMPLEX 180 January 02, 2024 1:10pm November 12:39pm TAKE 1 TABLET TWICE A DAY Start: 07-14-2017 End: 89-63-9033bmez 1 tablet by mouth once dailyAcyclovir 400 mg Tablet Discontinued 1 TAB PO daily November 29, 2017 5:03pm March 23, 2018 3:55pm Start: 10-05-2016 End: 81-43-3217zzlm 1 tablet by mouth twice dailyAcyclovir 400 mg tablet Discontinued 400 MG PO Twice daily November 07, 2019 2:31pm January 02, 2024 1:10pmamLODIPine 5 mg oral tablet (20 sources)Dihydropyridine Calcium Channel BlockerStart: 11-12-2023 End: 36-75-9795klwa 1 tablet by mouth once dailyAmlodipine 5 mg tablet Discontinued 5 MG PO Daily August 20, 2024 10:49am February 11, 2025 11:01am Start: 36-27-3686euVTTIPzac Besylate 5 MG Oral Tablet Quantity: 90 Refills: 0 Ordered: 16-May-2022 DO Start : 17-Nov-2021 CompleteStart: 93-95-2914Qhshx: 09-20-2018 End: 58-66-8827rndx 5 mg by mouth once dailyAmlodipine 10 mg Tablet Discontinued 5 MG PO Daily September 20, 2018 1:00am July 19, 2023 10:37amStart: 09-20-2018 End: 12-82-8608okmw 5 mg by mouth once dailyAmlodipine Discontinued 5 MG PO Daily September 20, 2018 12:00am July 19, 2023 9:37amStart: 07-14-2017 End: 37-29-2413qtrx 1 tablet by mouth once dailyAmlodipine 2.5 mg Tablet Discontinued 1 TAB PO daily July 14, 2017 12:00am December 21, 2017 10:10am amoxicillin 500 mg oral capsule (20 sources)Penicillin-class AntibacterialStart: 08-10-2018 End: 49-17-8014wceq 1 capsule by mouth every eight hoursAmoxicillin 500 mg capsule Discontinued 500 MG PO Q8H August 10, 2018 12:00am August 23, 2018 8:42amapixaban 5 mg oral tablet (20 sources)Factor Xa InhibitorStart: 12-19-2024 End: 51-94-1078cvny 2.5 mg by mouth twice dailyApixaban (Eliquis) 5 mg tablet Discontinued 2.5 MG PO Twice daily December 19, 2024 1:00am January 01, 2025 5:07pm finish Xarelto supply that you have; start Eliquis after thatStart: 11-01-2024 End: 03-13-3744obwa 1 tablet by mouth twice dailyStart: 09-19-2024 End: 47-65-8937rsbd 1 tablet by mouth twice dailyApixaban (Eliquis) 5 mg tablet Discontinued 5 MG PO Twice daily 180 90 September 19, 2024 1:00am December 19, 2024 3:56pm finish Xarelto supply that you have; start Eliquis after thataspirin 81 mg chewable tablet (20 sources)Platelet Aggregation Inhibitor, Nonsteroidal Anti-inflammatory Drug Start: 10-18-2018 End: 85-37-4314gmrn 1 tablet by mouth once dailyAspirin 81 mg Tablet,Chewable Discontinued 81 MG PO Daily October 18, 2018 1:00am October 30, 2024 3:10pm Start: 07-14-2017 End: 82-30-9443hzdq 1 tablet by mouth once dailyAspirin 81 mg Tablet,Delayed Release (Dr/Ec) Discontinued 81 MG PO Daily 7 August 11, 2018 12:00am August 23, 2018 8:42amStart: 44-45-1379wjma 81 mg by mouth once dailyaspirin 81 mg, Oral, Daily Start Date: 10/05/16 Status: Orderedcefdinir 300 mg oral capsule (20 sources)Cephalosporin AntibacterialStart: 04-12-2024 End: 67-78-2568qxmb 1 capsule by mouth twice dailyCefdinir 300 mg capsule Discontinued 300 MG PO Twice daily April 12, 2024 12:00am May 31, 2024 11:27amStart: 77-83-9229Mfmwtxyt 300 MG as directed Orally bid for 7 days Sep, Activecephalexin 250 mg oral capsule (20 sources)Cephalosporin AntibacterialStart: 01-08-2020 End: 26-82-9227jphp 1 capsule by mouth once dailyCephalexin 250 mg capsule Discontinued 250 MG PO Daily January 08, 2020 1:00am June 16, 2021 9:04am Start: 02-15-2018 End: 70-09-0412puuj 1 capsule by mouth once dailyCephalexin 250 mg Capsule Discontinued 250 MG PO Daily February 15, 2018 12:00am March 22, 2018 8:44am ciprofloxacin 500 mg oral tablet (2 sources)Quinolone AntimicrobialStart: 83-28-7882Uevjq 500 mg Tab 500 mg = 1 tab(s), Oral, As Directed, Patient to take 1 tab the day before procedure and the 2nd tab the day of procedure once completed, # 2 tab(s), Refills(s) 0, Pharmacy: [facility] 1155, 167, cm, 01/10/23 11:12:00 EST, Height/Length Dosing, 8... Start Date: 01/10/23 Status:OrderedStart: 17-69-4995Tquintxteuztz HCl - 0.3 % Ophthalmic Solution Quantity: 5 Refills: 0 Ordered: 11-Feb-2022 DO Start : 11-Feb-2022 Completecitric acid 128 mg/ml / sodium citrate 98 mg/ml oral solution (20 sources)Calculi Dissolution Agent, Anti-coagulantStart: 12-25-2024 End: 51-30-0193jvuu 1 mL by mouth once dailySodium Citrate-Citric Acid (Oracit) 490-640 mg/5 mL solution Discontinued 5 ML PO Daily 473 December 25, 2024 1:00am April 01, 2025 3:48pm administer with a meal and dilute/mix in a full glass of waterStart: 35-09-4846Ctqds: 07-05-2024 End: 01-75-9552zgpj 1 mL by mouth once daily at bedtime as neededSodium Citrate- Citric Acid (Oracit) 490-640 mg/5 mL solution Discontinued 10 ML PO Daily at bedtimeas needed for Kidney stones July 05, 2024 1:14pm September 19, 2024 5:44pmStart: 95-21-5879qjcq 2 capsules by mouth once dailyOracit oral solution See Instructions, 3,600 mL, Refill(s) 6, Take 2 cap fulls 4x/day, AdEspresso #72, 167, cm, 01/09/24 9:13:00 EST, Height/Length Dosing, 85.7, kg, 01/09/24 9:13:00 EST,Weight Dosing Start Date: 01/09/24 Status: OrderedStart: 10-06-2021 End: 43-30-2523yqaa 1 mL by mouth onceSodium Citrate-Citric Acid (Oracit) 490- 640 mg/5 mL Solution Discontinued 10 ML PO Once October 06, 2021 1:00am October 06, 2021 9:56amStart: 75-77-3153Silqoz oral solution Refill(s) 0 Start Date: 09/04/21 Status: OrderedStart: 06-16-2021 End: 85-97-6591noze 1 mL by mouth four times dailySodium Citrate-Citric Acid (Oracit) 490-640 mg/5 mL Solution Discontinued 10 ML PO Four times dailyAugust 2020 12:00am July 05, 2024 1:15pmStart: 06-16-2021 End: 93-01-8613Tcwmeq 490-640 MG/5ML 10 ml after meals and at bedtime diluted with 1 to 3 ounces of water or juiceOrally bid for 90 day(s) Activeclopidogrel 75 mg oral tablet (20 sources)P2Y12 Platelet InhibitorStart: 08-11-2018 End: 48-15-1054agxg 1 tablet by mouth once dailyClopidogrel (Plavix) 75 mg tablet Discontinued 75 MG PO Daily August 23, 2018 8:41am November 07, 2019 3:50pmcyclobenzaprine hydrochloride 10 mg oral tablet (20 sources)Muscle RelaxantStart: 11-04-2020 End: 01-06-5032akin 1 tablet by mouth three times daily as needed for pain Cyclobenzaprine 10 mg Tablet Discontinued 10 MG PO Three times daily as needed for Pain 2019 1:00am July 19, 2023 10:37amdocusate sodium 100 mg oral capsule (16 sources)Start: 10-30-2024 End: 03-43-9336bamo 1 capsule by mouth once daily as needed for constipation Docusate Sodium (Colace) 100 mg capsule Discontinued 100 MG PO Daily as needed for constipation October 30, 2024 1:00am January 02, 2025 9:09amDULoxetine 20 mg delayed release oral capsule (20 sources)Serotonin and Norepinephrine Reuptake InhibitorStart: 05-31-2024 End: 27-56-1027srml 1 capsule by mouth once dailyDuloxetine (Cymbalta) 20 mg capsule,delayed release(DR/EC) Discontinued 20 MG PO Daily May 31, 2024 12:00am July 05, 2024 1:11pmergocalciferol 1.25 mg oral capsule (20 sources)Provitamin D2 CompoundStart: 07-14-2017 End: 05-67-4340fdkf 1 capsule by mouth once dailyErgocalciferol (Vitamin D2) (Vitamin D2) 50,000 unit Capsule Discontinued 1 CAP PO daily July 14, 2017 12:00am August 10, 2018 11:37amStart: 07-14-2017 End: 65-75-8223vqacqrfhulnj 10 mg oral tablet (18 sources)Serotonin Reuptake InhibitorStart: 10-30-2024 End: 46-94-8398vrut 1 tablet by mouth once dailyEscitalopram Oxalate (Lexapro) 10 mg tablet Discontinued 10 MG PO Daily January 01, 2025 1:00am January 02, 2025 9:09amFish Oils (20 sources)Start: 07-14-2017 End: 60-23-2944ztks 1 capsule by mouth twice dailyFish Oil 500 mg capsule Discontinued 1200 CAP PO Twice daily July 14, 2017 12:00am June 1:12pmStart: 07-14-2017 End: 41-39-8164dkki 1 capsule by mouth twice dailyFish Oil 500 mg capsule Discontinued 1200 CAP PO Twice daily July 13, 2017 11:00pm June 12:12pmStart: 07-14-2017 End: 05-69-0490acbo 1 capsule by mouth twice dailyFish Oil Discontinued 1200 CAP PO Twice daily July 13, 2017 11:00pm July 05, 2024 12:12pmStart: 07-14-2017 End: 68-81-4398nido 1 capsule by mouth twice dailyFish Oil Discontinued 1200 CAP PO Twice daily July 14, 2017 12:00am July 05, 2024 1:12pmStart: 95-11-1862ocyi 1 capsule by mouth twice dailyFish Oil Active 1200 CAP PO Twice daily July 13, 2017 11:00pmStart: 95-92-7176tgle 1 capsule by mouth twice dailyFish Oil Active 1200 CAP PO Twice daily July 14, 2017 12:00amStart: 11-56-4318bzfe 1 capsule by mouth twice dailyFish Oil 1000 mg oral capsule 1,000 mg = 1 cap(s), Oral, BID, Prophylaxis Start Date: 10/05/16 Status: Orderedtake 1 capsule by mouth twice dailytake 1 capsule by mouth twice dailyFish Oil 1000 MG 1 capsule Orally Twice a day Activefurosemide 40 mg oral tablet (16 sources)Loop DiureticStart: 12-25-2024 End: 11-78-8160Ewsoduowku 40 mg tablet Discontinued 40 MG PO Every 48 hours 180 December 25, 2024 3:56pm February 11, 2025 11:02amStart: 12-22-2024 End: 74-01-7628okfo 1 tablet by mouth once dailyFurosemide 40 mg Tablet Discontinued 40 MG PO Daily at 0800 30 December 22, 2024 1:00am December 25, 2024 3:57pmtake 1 tablet by mouth every other dayfurosemide (Lasix) 20 mg tablet Take 1 tablet (20 mg) by mouth every other day. Active3 ml insulin lispro 100 unt/ml pen injector (8 sources)Insulin AnalogStart: 07-14-2017 End: 85-30-4219Mmyrybw Lispro (Humalog Kwikpen Insulin) 100 unit/mL Insulin [...] contact the information source for Protocol details.Start: 49-97-1364Iqhjjdk Lispro (Humalog Kwikpen Insulin) 100 unit/mL Insulin Pen Active 0 unit SUBCUT Before meals and at bedtime July 14, 2017 12:00am SLIDING SCALEHumaLOG KwikPen 100 UNIT/ML scale #1 Subcutaneous before meals tid Not-TakingInsulin Lispro (Humalog Kwikpen Insulin) 100 unit/mL Insulin Pen (16 sources)Start: 07-14-2017 End: 15-56-1707Epkuhmu Lispro (Humalog Kwikpen Insulin) 100 unit/mL Insulin Pen Discontinued 0 UNIT SUBCUT Before meals and at bedtime as needed for DIABETES July 14, 2017 12:00am January 04, 2024 12:03pm SLIDING SCALE Please contact the information source for Protocol details.Start: 07-14-2017 End: 11-11-8820Herxkeh Lispro (Humalog Kwikpen Insulin) 100 unit/mL Insulin Pen Discontinued 0 UNIT SUBCUT Before meals and at bedtime as needed for DIABETES July 13, 2017 11:00pm January 04, 2024 11:03am SLIDING SCALE Please contact the information source for Protocol details.Start: 07-14-2017 End: 14-92-2889Fscpfia Lispro (Humalog Kwikpen Insulin) 100 unit/mL Insulin Pen Discontinued 0 UNIT SUBCUT Before meals and at bedtime July 14, 2017 12:00am January 04, 2024 12:03pm SLIDING SCALEStart: 07-14-2017 End: 04-16-3762Viirxct Lispro (Humalog Kwikpen Insulin) 100 unit/mL Insulin Pen Discontinued 0 UNIT SUBCUT Before meals and at bedtime July 13, 2017 11:00pm January 04, 2024 11:03am SLIDING SCALEStart: 88-22-5975Vwgxewg Lispro (Humalog Kwikpen Insulin) 100 unit/mL Insulin Pen Active 0 unit SUBCUT Before meals and at bedtime July 14, 2017 12:00am SLIDING SCALEStart: 07-14-2017 Insulin Lispro (Humalog Kwikpen Insulin) 100 unit/mL Insulin Pen Active 0 unit SUBCUT Before meals and at bedtime July 13, 2017 11:00pm SLIDING SCALE linagliptin 5 mg oral tablet (20 sources)Dipeptidyl Peptidase 4 InhibitorStart: 01-08-2020 End: 15-63-8751rael 1 tablet by mouth once dailyLinagliptin (Tradjenta) 5 mg tablet Discontinued 5 MG PO Daily January 08, 2020 1:00am September 09, 2020 10:04amOmega 6-Mkq-Axh-Fish Oil (Fish Oil) 1,000 mg (120 mg-180 mg) capsule (9 sources)Start: 07-05-2024 End: 96-76-2574Excaz 7-Lwv-Dwh-Fish Oil (Fish Oil) 1,000 mg (120 mg-180 mg) capsule Discontinued 1 CAP PO Every 48hours July 05, 2024 12:00am April 01, 2025 3:48pmStart: 06-08-8270Kpizb 9-Wlo-Rdu-Fish Oil (Fish Oil) 1,000 mg (120 mg-180 mg) capsule Active 1 CAP PO Every 48 hoursAugust 2023 11:00pmStart: 89-49-9451Gtvzi 0-Tkb-Ckk-Fish Oil (Fish Oil) 1,000 mg (120 mg-180 mg) capsule Active 1 CAP PO Every 48 hoursAugust 2023 12:00amomeprazole 20 mg delayed release oral capsule (19 sources)Proton Pump InhibitorStart: 10-25-2024 End: 89-16-3530ssiq 1 capsule by mouth once dailyOmeprazole 20 mg capsule,delayed release(DR/EC) Discontinued 20 MG PO Daily October 30, 2024 1:00am December 25, 2024 3:42pm24 hr oxybutynin chloride 10 mg extended release oral tablet (20 sources)Cholinergic Muscarinic AntagonistStart: 02-15-2018 End: 18-99-3518cndo 1 tablet by mouth once dailyOxybutynin Chloride 10 mg Tablet Extended Release 24hr Discontinued 10 MG PO Daily February 15, 2018 12:00am March 22, 2018 8:43ampredniSONE 20 mg oral tablet (20 sources)Start: 01-02-2021 End: 26-17-0899kxbw 1 tablet by mouth once dailyPrednisone 20 mg Tablet Discontinued 20 MG PO Daily January 02, 2021 1:00am May 19, 2021 8:58am 20mg PO daily for two days starting the day after each Daratumumab/Hyaluronidase dose.Start: 07-14-2017 End: 23-91-9216yqen 1 tablet by mouth once dailyPrednisone 20 mg Tablet Discontinued 1 TAB PO As Directed July 14, 2017 12:00am May 18, 2018 8 :33am once daily on and Fridays after chemopredniSONE 50 MG Oral for 5 Days ActivePROCRIT INJECTION - 1000 units (20 sources)Start: 82-40-1486NXCIBXY INJECTION - 1000 units Jun, 77980 unitsStart: 79-59-3617RTXKDBZ INJECTION - 1000 units Jun,19990 U raNITIdine 150 mg oral tablet (19 sources)Histamine-2 Receptor AntagonistStart: 03-15-2018 End: 06-14-5918vxfa 1 capsule by mouth once daily at bedtimeRanitidine Hcl 150 mg Capsule Discontinued 150 MG PO Daily at bedtime March 15, 2018 12:00am July 04, 2018 11:55amStart: 03-15-2018 End: 09-01-1367mlej 150 mg by mouth once daily at bedtimeRanitidine Hcl Discontinued 150 MG PO Daily at bedtime March 14, 2018 11:00pm July 04, 2018 10:55amtriamcinolone acetonide 40 mg/ml injectable suspension (15 sources)CorticosteroidStart: 75-28-7205Gsqtcgt-40 March, 20 mgVitamin D3 5000 intl units oral tablet (2 sources)Start: 30-21-6264lxbn 1 tablet by mouth once dailyVitamin D3 [...] disease (20 sources)Cerebrovascular accident; Translations: [Cerebellar stroke]Onset: 538110-50-3763AckjwvoTspgvnl disorders (16 sources)Anxiety; Translations: [Anxiety disorder, unspecified]11-09-2024 ChronicAortic; peripheral; and visceral artery aneurysms (20 sources)Ascending aorta dilatation; Translations: [Thoracic aortic ectasia] Onset: 688722-79-2424XrvnesjAzknmkeli and vision defects (19 sources)Diplopia; Translations: [Diplopia]Onset: EpisodicCalculus of urinary tract (20 sources)Kidney stone; Translations: [Calculus of kidney]Onset: 08-06-2014 Resolved: 46-49-6441WaqdldthOwifsre dysrhythmias (20 sources)Persistent atrial fibrillation; Translations: [Atrial fibrillation] Onset: 208435-53-4909LqkzhfiFvjpipt dysrhythmias (20 sources)Palpitations; Translations: [Palpitations]93-44-2541ZutililuRsfzgbh kidney disease (20 sources)Chronic kidney disease stage 3; Translations: [Chronic kidney disease, Stage III (moderate)]Onset: 02-13-2015 Resolved: 95-93-6348JydbjuoHtczfdi kidney disease (2 sources)Chronic kidney disease; Translations: [Chronic kidney disease, stage 3a (Multi)]Onset: 40-42-3561[facility] obstructive pulmonary disease and bronchiectasis (13 sources)Bronchitis; Translations: [Bronchitis, not specified as acute or chronic]EpisodicConditions associated with dizziness or vertigo (20 sources)Dizziness; Translations: [Dizziness and giddiness]Onset: 09-23-2017 67-46-6364SmfgwbolZhuauwiuwx heart failure; nonhypertensive (20 sources)Heart failure; Translations: [Heart failure, unspecified]Onset: 750624-66-9042TftpudeYvovlyc on above:Gear Grinding Machine Operator is Dr. Rhodes Deficiency and other anemia (20 sources)Anemia in chronic kidney disease; Translations: [Anemia in chronic kidney disease]ChronicDeficiency and other anemia (20 sources)Anemia; Translations: [Anemia, unspecified]71-32-3052Yuicdtro Deficiency and other anemia (20 sources)Nutritional anemia; Translations: [Vitamin B12 deficiency anemia, unspecified]47-86-1153BuotcunmFwiidjatsx and other anemia (12 sources)Anemia, unspecified; Translations: [Anemia, unspecified]07-13-2022 EpisodicDeficiency and other anemia (12 sources)Vitamin B12 deficiency anemia, unspecified; Translations: [Other vitamin B12 deficiency anemia]84-65-2982QbpuorlsSrkbhpgd mellitus with complications (20 sources)Disorder of kidney due to diabetes mellitus; Translations: [Type 2 diabetes mellitus with diabetic nephropathy]Onset: 09-30-2021 Resolved: 01-99-7113TvivltlDvajcuut mellitus without complication (20 sources)Diabetes mellitus; Translations: [Diabetes mellitus without mention of complication, type II or unspecified type, not stated as uncontrolled]Onset: 424661-79-9429PtrghgfGgnerkyj mellitus without complication (20 sources)Glycosuria; Translations: [Glycosuria]Onset: 83-89-6355Oqnvzqqu Diseases of mouth; excluding dental (11 sources)Lesion of oral mucosa; Translations: [Other lesions of oral mucosa] EpisodicDisorders of lipid metabolism (20 sources)Hyperlipidemia; Translations: [Other and unspecified hyperlipidemia] Onset: 104670-59-4226BrmcsrmXeqvpqvqu hypertension (20 sources)Hypertensive disorder; Translations: [Unspecified essential hypertension]Onset: 765052-63-9420NhjcqcqLnjsirscfowghmkd hemorrhage (20 sources)Gastrointestinal hemorrhage; Translations: [Gastrointestinal hemorrhage, unspecified]Onset: 534440-66-5576EhpbyemlInahdghcfpjpp symptoms and ill-defined conditions (14 sources)Urge incontinence; Translations: [Urge incontinence of urine]Onset: 04-40-0517FhovhldSqrnwvivblwsl symptoms and ill-defined conditions (20 sources)Retention of urine; Translations: [Retention of urine, unspecified] Onset: 09-30-2021 Resolved: 56-42-3216UzqyikfmZsjnz valve disorders (20 sources)Aortic incompetence, non-rheumatic ; Translations: [Aortic valve disorders]Onset: 484840-34-0153NioqqmcSfpxnmyngtxe with complications and secondary hypertension (20 sources)Chronic kidney disease due to hypertension; Translations: [Hypertensive chronic kidney disease withstage 1 through stage 4 chronic kidney disease, or unspecified chronic kidney disease]Onset: 09-30-2021 Resolved: 64-21-9001HimstirDjzbwkvytrxx; infection of eye (except that caused by tuberculosis or sexually transmitteddisease) (11 sources)Conjunctivitis; Translations: [Unspecified conjunctivitis]Episodic Intrauterine hypoxia and asphyxia (2 sources)Metabolic acidemia, unspecifiedEpisodicMaintenance chemotherapy; radiotherapy (1 source)Encounter for antineoplastic chemotherapy; Translations: [ENCOUNTER FOR ANTINEOPLASTIC CHEMO]Onset: 49-75-5945YwzhzcoGymh disorders (20 sources)Depression; Translations: [Depressive disorder]Onset: 11-29-2014 98-71-3370UombrmbDqnpsliw myeloma (20 sources)Multiple myeloma; Translations: [Multiple myeloma, without mention of having achieved remission]Onset: 08-06-2014 Resolved: 291308-27-0305KhgugzaDxiutpysddl deficiencies (20 sources)Vitamin D deficiency; Translations: [Vitamin D deficiency, unspecified]Onset: 09-30-2021 Resolved: 26-46-7441YnhhiyhBnmglrsuskc deficiencies (20 sources)Cobalamin deficiency; Translations: [Deficiency of other specified B group vitamins]32-01-1902LpatjxorDyqtl aftercare (20 sources)Drug therapy finding; Translations: [assisted (current) use of systemic steroids]EpisodicOther aftercare (20 sources)Long-term current use of insulin; Translations: [manager terminal (current) use of insulin]Onset: 549949-49-7632UphwzbmjSuzex aftercare (1 source)assisted (current) use of aspirin; Translations: [RETIREMENT CURRENT USE OF ASPIRIN]Onset: 19-32-8000HslnmhiaVcehb aftercare (1 source)Other mcc (current) drug therapy; Translations: [OTH RETIREMENT CURRENT DRUG THERAPY]Onset: 28-00-5840RwqkwwoiEirhv aftercare (1 source)manager terminal (current) use of insulin; Translations: [NUT BLANKER OPERATOR CURRENT USE OF INSULIN]Onset: 77-43-1591TpovfyhiSvusz aftercare (19 sources)Long-term current use of steroid; Translations: [assisted (current) use of systemic steroids]67-48-6954DpswnxlfMphvk aftercare (6 sources)Long-term current use of anticoagulant; Translations: [assisted (current) use of anticoagulants]Onset: 833571-00-5803XdjtbxloMcdjm aftercare (1 source)Long-term current use of systemic steroid; Translations: [assisted (current) use of systemic steroids]35-93-8714FvegugkjJejok circulatory disease (1 source)Personal history of transient ischemic attack (TIA), and cerebral infarction without residual deficits; Translations: [PERS HX TIA AND CI NO RESID DEFICIT]Onset: 17-68-7389UncxscevApegq circulatory disease (11 sources)Elevated blood-pressure reading without diagnosis of hypertension; Translations: [Elevated blood-pressure reading, without diagnosis of hypertension]EpisodicOther circulatory disease (3 sources)Low blood pressure; Translations: [Hypotension, unspecified] 51-82-8893BfqecbjpYhrvo circulatory disease (2 sources)Hypotension, unspecified; Translations: [Hypotension, unspecified] 97-16-5448PjcbciutTeksj connective tissue disease (20 sources)Monoparesis - leg; Translations: [Other symptoms and signs involving the musculoskeletal system]77-57-7625DtkulribQgerb connective tissue disease (16 sources)Other symptoms and signs involving the musculoskeletal system; Translations: [Other musculoskeletalsymptoms referable to limbs]Onset: 357784-41-0430VfvgmqsaLwcia connective tissue disease (13 sources)Acquired trigger finger; Translations: [Trigger finger, left middle finger]EpisodicOther connective tissue disease (11 sources)Disorder of musculoskeletal system; Translations: [Other symptoms and signs involving the musculoskeletal system]EpisodicOther diseases of kidney and ureters (20 sources)Hyperparathyroidism due to renal insufficiency; Translations: [Secondary hyperparathyroidism of renal origin]68-54-4475ArfhdqhAejbs diseases of kidney and ureters (19 sources)Secondary hyperparathyroidism of renal origin; Translations: [Secondary hyperparathyroidism (of renal origin)]Onset: 09-30-2021 Resolved: 90-26-3995JkndulsXskxd diseases of kidney and ureters (20 sources)Secondary hyperparathyroidism; Translations: [Secondary hyperparathyroidism of renal origin]36-87-4899FymrtalZirkr ear and sense organ disorders (20 sources)Hearing loss; Translations: [Unspecified hearing loss, unspecified ear]20-50-1071FzzqpyfKcwmg ear and sense organ disorders (12 sources)Unspecified hearing loss, unspecified ear; Translations: [Unspecified hearing loss]73-69-3908GkcjihwFkiry ear and sense organ disorders (1 source)Conductive hearing loss; Translations: [Unspecified conductive hearing loss]Onset: 59-72-0427XizcdjzZxrto endocrine disorders (20 sources)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; Translations: [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]30-81-0640GvdbqdbAuuvd lower respiratory disease (20 sources)Dyspnea; Translations: [Dyspnea, unspecified]95-43-0212WgsttfnxDphge nervous system disorders (20 sources)Abnormal gait; Translations: [Unsteadiness on feet]Onset: 03-05-2024 07-04-5766OpvwsecnTecom nervous system disorders (20 sources)Unsteadiness on feet; Translations: [Abnormality of gait]07-13-2022 EpisodicOther nervous system disorders (20 sources)Impairment of balance; Translations: [Other abnormalities of gait and mobility]94-52-6489YlvxphcnLzfuq nervous system disorders (1 source)Other abnormalities of gait and mobilityEpisodicOther nervous system disorders (7 sources)Anesthesia of skin; Translations: [Disturbance of skin sensation] 16-20-9884WzpkoeviUojpb nervous system disorders (1 source)Numbness of face; Translations: [Anesthesia of skin]20-64-8676Wlaljaoe Other non-traumatic joint disorders (7 sources)Pain in left knee; Translations: [PAIN IN LEFT KNEE]Onset: 03-16-2023 EpisodicOther non-traumatic joint disorders (7 sources)Pain in unspecified shoulder; Translations: [Pain in joint, shoulder region]93-44-1646PzfkkplbZlply non-traumatic joint disorders (1 source)Shoulder pain; Translations: [Pain in unspecified shoulder]08-12-2025 EpisodicOther nutritional; endocrine; and metabolic disorders (20 sources)Body mass index 30+ - obesity; Translations: [Obesity, unspecified] Onset: 241367-72-8310BqnvnkmZysyz nutritional; endocrine; and metabolic disorders (5 sources)Obesity; Translations: [Obesity, unspecified]ChronicOther nutritional; endocrine; and metabolic disorders (12 sources)Hypomagnesemia; Translations: [Hypomagnesemia]11-58-2658PxdirtfZtget nutritional; endocrine; and metabolic disorders (3 sources)Hypomagnesemia; Translations: [Disorders of magnesium metabolism] 70-87-6291XqisidsChvpq nutritional; endocrine; and metabolic disorders (2 sources)Body mass index (BMI) 31.0-31.9, adult; Translations: [Body mass index (BMI) 31.0-31.9, adult]Onset: 99-92-9891FwldiozRxfar nutritional; endocrine; and metabolic disorders (2 sources)Body mass index (BMI) 32.0-32.9, adult; Translations: [Body mass index (BMI) 32.0-32.9, adult]Onset: 99-82-8980GqxhffaQfoku nutritional; endocrine; and metabolic disorders (3 sources)Body mass index 25-29 - overweight; Translations: [Body Mass Index 29.0-29.9, adult]EpisodicOther nutritional; endocrine; and metabolic disorders (20 sources)Overweight; Translations: [Overweight]EpisodicOther screening for suspected conditions (not mental disorders or infectious disease) (11 sources)Coag./bleeding tests abnormal; Translations: [Abnormal coagulation profile]EpisodicOther upper respiratory disease (11 sources)Seasonal allergic rhinitis; Translations: [Other seasonal allergic rhinitis]Onset: 93-99-6959WyjsencHxzdm upper respiratory infections (11 sources)Acute pharyngitis; Translations: [Acute pharyngitis, unspecified] EpisodicPulmonary heart disease (20 sources)Secondary pulmonary hypertension; Translations: [Other chronic pulmonary heart diseases]Onset: 678517-51-9241RyledrxDtzypibv codes; unclassified (1 source)Acquired absence of both cervix and uterus; Translations: [ACQUIRED ABSENCE BOTH CERVIX AND UTERUS]Onset: 97-87-9229KrbgyqzoRdyykued codes; unclassified (1 source)Acquired absence of other specified parts of digestive tract; Translations: [ACQ ABSENCE OTH PART DIGESTV TRACT]Onset: 47-94-0526Uebdgltt Residual codes; unclassified (10 sources)Never smoked tobacco; Translations: [Other specified health status] Onset: 264743-80-5631MijuuzazFjrbalnp codes; unclassified (9 sources)Body fluid retention; Translations: [Edema, unspecified]12-19-2024 EpisodicResidual codes; unclassified (8 sources)Edema, unspecified; Translations: [Other fluid overload]12-19-2024 EpisodicSecondary malignancies (1 source)Secondary malignant neoplasm of bone; Translations: [SECONDARY MALIGNANT NEOPLASM BONE]Onset: 47-27-4213MctjmktZrzlrdn (1 source)Syncope and collapseEpisodicTransient cerebral ischemia (14 sources)Transient cerebral ischemia; Translations: [Unspecified transient cerebral ischemia]Onset: 432124-35-3640IaldimvVunqenefsdbv (3 sources)Drug therapy wplwije17-81-1587Izmlwnqnpupy (1 source)ACIDOSIS UNSPECIFIED; Translations: [ACIDOSIS UNSPECIFIED]Onset: 18-52-5716Awgjpawwvknt (2 sources)CONTACT W/AND (SUSP) EXPOS COVID-19; Translations: [CONTACT W/AND (SUSP) EXPOS COVID-19]Onset: 41-05-3439Lvhprpooygxz (11 sources)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); Translations: [Post COVID-19 condition, unspecified]Unclassified (2 sources)A [facility] screening has identified you as FRAIL [...] Four Ways to Beat the Frailty Risk [email or web address]-qew-hifsbtxuny/tvds-nojvjg-zrhg- xetl-kv-ywmx-the-fra iyww-vxrs59-15rzhj59-99-8443Uqfywvcmvtsa (2 sources)EKG visitOnset: 11-37-6582Jppahkhqevxg (3 sources)Other persistent atrial fibrillation; Translations: [Other persistent atrial fibrillation]Onset: 94-76-1034Dlliuhipdmdj (1 source)Acidosis, unspecified; Translations: [Acidosis, unspecified]Onset: 32-47-8281Rbznimn tract infections (20 sources)Urinary tract infectious disease; Translations: [Urinary tract infection, site not specified]10-40-8957IecdspdkDoclv infection (15 sources)Viral wart, unspecified; Translations: [Herpes zoster without complication]Onset: 08-77-6985AjrfyhpcOznbg infection (4 sources)COVID-19; Translations: [COVID-19]Onset: 05-25-2022 Past or Other Problems Problem ClassificationProblemDateDocumented DateEpisodic/Chronic Administrative/social admission (14 sources)Other reduced mobility; Translations: [Impaired mobility and activities of daily living]Onset: 827652-35-4190CoqlrhhkSgbqk and electrolyte disorders (20 sources)Acidosis; Translations: [Acidemia]Onset: 09-30-2021 Resolved: 77-72-6414FvwlttavIllhjhjp; including migraine (1 source)Headache; Translations: [Headache]Onset: 64-40-1001Qerxlxrs Immunizations and screening for infectious disease (1 source)Encounter for immunization; Translations: [ENCOUNTER FOR IMMUNIZATION] Onset: 58-92-4886BofmzkuiWsjgpwv and fatigue (20 sources)Weakness; Translations: [Asthenia]Onset: 90-26-3596Glomvoxd Nonspecific chest pain (17 sources)Chest pain; Translations: [Chest pain, Other]Onset: 11-24-2015 06-72-1721GgtgoojnGptml aftercare (3 sources)manager terminal (current) use of anticoagulants; Translations: [RETIREMENT CURRNT USE ANTICOAGULANTS]Onset: 38-40-5622BmzabedbPuwsx and unspecified benign neoplasm (1 source)Benign neoplasm of skin of trunk, excluding scrotum; Translations: [Benign neoplasm of skin of trunk, except scrotum]Onset: 27-10-4279IiueymsjZqhcr connective tissue disease (13 sources)Myofascial pain; Translations: [Myalgia, other site]Onset: 750691-53-9624BrnvictzWcpxj ear and sense organ disorders (1 source)Disorder of ear; Translations: [Unspecified disorder of ear]Onset: 26-31-0631DxaglgwcXmygo lower respiratory disease (20 sources)Dyspnea at rest; Translations: [Shortness of breath]Onset: 310931-29-1113LrtvxebkMjkqo lower respiratory disease (12 sources)Dyspnea, unspecified; Translations: [Other respiratory abnormalities]Onset: 156452-96-0715SkpthvbvZfwir lower respiratory disease (2 sources)Shortness of breath; Translations: [Shortness of breath]Onset: 45-38-2089JwluvlinWeekftdt codes; unclassified (1 source)Family history of diabetes mellitus; Translations: [Family history of diabetes mellitus]Onset: 27-86-1868IoglwbceDpnskddp codes; unclassified (3 sources)Other specified health status; Translations: [Other specified health status]Onset: 54-29-8394WdxguaavXgfeumgsswe; intervertebral disc disorders; other back problems (13 sources)Lumbosacral radiculopathy; Translations: [Radiculopathy, lumbosacral region]Onset: 994714-55-1648IhhhfarhCuzvvvfizdem (8 sources)Never smoked tobacco; Translations: [Never a smoker]Unclassified (1 source)CONTACT W/AND (SUSP) EXPOS COVID-19; Translations: [CONTACT W/AND (SUSP) EXPOS COVID-19]Onset: 77-92-8555Fqbdozgpbsdh (1 source)Lumbar pain M54.50Unclassified (10 sources)Onset: 10-04-2023 Resolved: Results Test NameValueInterpretationReference RangeFacilityAlanine aminotransferase [Enzymatic activity/volume] in Serum or PlasmaOrdered By: Claire Choi on 18-13-9642TNA [Catalytic activity/Vol]10 U/LNormal7-52[facility] HospitalComment on above:Performed By: #### LACTIC #### [facility] [address] [place] [address] USAAlbumin [Mass/volume] in Serum or Plasma by Bromocresol green (BCG) dye binding methoOrdered By: Claire Choi on 93-97-0193Ojvyslf BCG dye [Mass/Vol]3.8 g/dL3.5-5.7FZanesville City HospitalAlkaline phosphatase [Enzymatic activity/volume] in Serum or PlasmaOrdered By: Claire Choi on 17-35-5787QBG [Catalytic activity/Vol]111 U/ZZgzi88-329FlmceoxefOhio State East HospitalComment on above:Performed By: #### LACTIC #### [facility] [address] [id number] USAAspartate aminotransferase [Enzymatic activity/volume] in Serum or PlasmaOrdered By: Claire Choi on 96-86-3598WSY [Catalytic activity/Vol]14 U/QDqzwbw32-82YuakhneaiOhio State East HospitalComment on above: Performed By: #### LACTIC #### [facility] [address] [place] [address] USABasophils [#/volume] in Blood by Automated countOrdered By: Claire Choi on 45-68-1475Erorkwyfb (Bld) [#/Vol]0.1 10*3/uLNormal 0.0-0.2FZanesville City HospitalComment on above:Result Comment: PERFORMED BY: [place] [address] PATHOLOGIST DIRECTOR OF PHOTOGRAPHY LOIDA RAMOS M.D.Performed By: #### LACTIC #### [place] [address] USABasophils/100 leukocytes in Blood by Automated count Ordered By: Claire Choi on 38-54-8751Rohknpguv/100 WBC (Bld)0.8 %Normal. [facility] HospitalComment on above:Performed By: #### LACTIC #### [place] [address] USABilirubin.total [Mass/volume] in Serum or PlasmaOrdered By: Claire Choi on 44-07-6246Njmbsnczw [Mass/Vol]0.4 mg/dLNormal0.3-1.0 [facility] HospitalComment on above:Performed By: #### LACTIC #### [place] [address] USACBC W Auto Differential panel (Bld)on 04-56-1123Ubvmbemgw (Bld) [#/Vol]0.1 10*3/uL0.0 - 0.2 10*3/uLNOMS HealthcareBasophils/100 WBC Manual cnt (Syn fld)0.8 %.NOMS HealthcareEosinophils (Bld) [#/Vol]0.1 10*3/uL0.0 - 0.45 10*3/uLNOMS HealthcareEosinophils/100 WBC Manual cnt (Syn fld)1 %.NOMS HealthcareErythrocyte distribution width (RBC) [Ratio]13.3 %11.9 - 15.3 %[facility] HospitalHematocrit (Bld) [Volume fraction]38.2 %34.0 - 46.4 %[facility] Hemoglobin (Bld) [Mass/Vol]12.9 g/dL11.8 - 15.4 g/dLLDS HOSPITAL HealthcareLymphocytes (Bld) [#/Vol]1.9 10*3/uL1.00 - 4.8 10*3/uLNOAK HealthcareLymphocytes/100 WBC Manual cnt (Syn fld)23.3 %.[facility] (RBC) [Entitic mass]31.6 pg24.7 - 34.3 pgCox NorthHC (RBC) [Mass/Vol]33.8 g/dL32.0 - 35.0 g/dLCox NorthV (RBC) [Entitic vol]93.5 fL80 - 100 fLLDS HOSPITAL HealthcareMonocytes (Bld) [#/Vol]0.5 10*3/uL0.0 - 0.8 10*3/uLLDS HOSPITAL Healthcare Monocytes+Macrophages/100 WBC Manual cnt (Syn fld)5.9 %.[facility] Neutrophils (Bld) [#/Vol]5.5 10*3/uL1.8 - 7.7 10*3/uLNOAK Healthcare Neutrophils/100 WBC Manual cnt (Syn fld)69 %.[facility] HospitalNRBC0 /100{WBC}0 - 0.5 /100{WBC}[facility] HospitalPlatelet mean volume (Bld) [Entitic vol]9.6 fL6.3 - 10.7 fLLDS HOSPITAL HealthcarePlatelets (Bld) [#/Vol]184 10*3/uL150 - 450 10*3/uLNOMS Detwiler Memorial HospitalRBC LM.HPF (Urine sed) [#/Area]4.08 10*6/uL3.60 - 5.00 10*6/uLNOMS HealthcareWBC (Bld) [#/Vol]8 10*3/uL3.8 - 11.6 10*3/uLNOSaint John's Regional Health CenterWBC LM.HPF (Urine sed) [#/Area]8 [CFU]/mL3.8 - 11.6 [CFU]/mLNOMS HealthcareNOMS Healthcare Calcium [Mass/volume] in Serum or PlasmaOrdered By: Claire Choi on 56-72-9812Xikrgbp [Mass/Vol]8.5 mg/dLLow8.6-10.3FZanesville City HospitalComment on above:Performed By: #### LACTIC #### [place] [address] USACarbon dioxide, total [Moles/volume] in Serum or Plasma Ordered By: Claire Choi on 70-20-9025PA9 [Moles/Vol]22.6 mmol/LNormal 21.0-31.0Ohio State East HospitalComment on above:Performed By: #### LACTIC #### [place] [address] USAChloride [Moles/volume] in Serum or PlasmaOrdered By: Claire Choi on 05-66-8746Obmgaddv [Moles/Vol]108 mmol/MSuww47-123TshsxkbbnOhio State East HospitalComment on above:Performed By: #### LACTIC #### [place] [address] USAComplete Blood Count Auto Diffon 62-33-9424Zmyx Corpuscular HGB Conc33.8 g/zUVffpst18.0-35.0The [facility] Physician GroupComment on above:Performed By: #### LACTIC #### [place] [address] USANRBC%0.0 /100{WBC}Normal0-0.5[facility] Comment on above:Performed By: #### LACTIC #### [place] [address] USAWhite Blood Count8.0 [CFU]/mLNormal3.8-11.6The [facility] Physician GroupComment on above:Performed By: #### LACTIC #### [place] [address] USAComprehensive Metabolic Panelon 76-34-8970Hgtezyb [Mass/Vol]3.8 g/dLNormal3.5-5.7The [facility] Physician GroupComment on above: Performed By: #### LACTIC #### [facility] [address] [place] [address] USACreatinine Clr Calc Jijnzolc25.06NoECU Health Edgecombe Hospital Physician GroupComment on above:Result Comment: PERFORMED BY: [place] [address] PATHOLOGIST DIRECTOR OF PHOTOGRAPHY LOIDA RAMOS M.D.Performed By: #### LACTIC #### [place] [address] USAGFR/1.73 sq M.predicted MDRD (S/P/Bld) [Vol rate/Area] 20.153 mL/min/{1.73_m2}NormalThe [facility]ly [facility] Physician GroupComment on above: Performed By: #### LACTIC #### [place] [id number] USAComprehensive metabolic panelon 11-82-1790Xcghbqx [Mass/Vol]3.8 g/dL3.5 - 5.7 g/dLNOAK HealthcareAlbumin/Globulin [Mass ratio]1.3 {ratio}NOMS HealthcareALP [Catalytic activity/Vol]111 U/LHigh34 - 104 U/LNOMS HealthcareALT [Catalytic activity/Vol]10 U/L7 - 52 U/LNOMS HealthcareAnion gap [Moles/Vol]10.3 mmol/L6.0 - 15.0NOMS HealthcareAST [Catalytic activity/Vol]14 U/L13 - 39 U/LNOMS HealthcareBilirubin [Mass/Vol]0.4 mg/dL0.3 - 1.0 mg/dLNOMS HealthcareCalcium [Mass/Vol]8.5 mg/dLLow8.6 - 10.3 mg/dLNOMS HealthcareChloride [Moles/Vol]108 mmol/LHigh98 - 107 mmol/LNOMS HealthcareCO2 [Moles/Vol]22.6 mmol/L21.0 - 31.0 mmol/LNOMS HealthcareCreatinine (U) [Mass/Vol]2.34 mg/dLHigh 0.60 - 1.20 mg/dLNOAK HealthcareCREATININE CLR CALC FQJDAENF47.06[facility] Healthcare GFR/1.73 sq M.predicted MDRD (S/P/Bld) [Vol rate/Area]20.153 mL/min/{1.73_m2} NOMS HealthcareGlobulin (S) [Mass/Vol]2.9 g/dLNOMS HealthcareGlucose [Mass/Vol] 161 mg/fLEboi37 - 100 mg/dLSalem Memorial District HospitalComment on above:Random Glucose Reference Range is dependent on time and content of last meal. Glucose of more than 200 mg/dL in a nonstressed, ambulatory subject supports the diagnosis of Diabetes Mellitus. ADA recommended reference range Interpretation and review of laboratory resultsAbnormalNOMS HealthcarePotassium [Moles/Vol]3.9 mmol/L3.5 - 5.1 mmol/LNOMS HealthcareProtein [Mass/Vol]6.7 g/dL 6.4 - 8.9 g/dLNOAK HealthcareSodium [Moles/Vol]137 mmol/L136 - 145 mmol/LNOMS HealthcareUrea nitrogen [Mass/Vol]35 mg/dLHigh7 - 25 mg/dLNOSaint John's Regional Health CenterNOAK HealthcareCreatinine [Mass/volume] in Serum or PlasmaOrdered By: Claire Choi on 51-84-4240Iikxwdfruz [Mass/Vol]2.34 mg/dLHigh0.60-1.20[facility] State East HospitalComment on above:Performed By: #### LACTIC #### [facility] [address] [place] [address] USAEosinophils [#/volume] in Blood by Automated countOrdered By: Claire Choi on 66-36-8730Uvslalshwcb (Bld) [#/Vol]0.1 10*3/uLNormal 0.0-0.45Ohio State East HospitalComment on above:Performed By: #### LACTIC #### [facility] [address] [place] [id number] USAEosinophils/100 leukocytes in Blood by Automated count Ordered By: Claire Choi on 96-10-9187Kpzaqxfzuvg/100 WBC (Bld)1.0 %Normal. [facility] State East HospitalComment on above:Performed By: #### LACTIC #### [facility] [address] [place] [id number] USAErythrocyte distribution width [Ratio] by Automated count Ordered By: Claire Choi on 41-57-3360Lkagxsshbyi distribution width (RBC) [Ratio]13.3 %Sdprzw61.9-15.3FZanesville City HospitalComment on above: Performed By: #### LACTIC #### [facility] [address] [place] [address] USAErythrocytes [#/volume] in Blood by Automated countOrdered By: Claire Choi on 38-50-7847QHT (Bld) [#/Vol]4.08 10*6/uLNormal3.60-5.00 [facility] East HospitalComment on above:Performed By: #### LACTIC #### [facility] [address] [place] [address] USAFree K+L LT Chains, Qn, Son 58-38-6180Hiab Lemitar Light Chains, S44.7 mg/LNormal3.3-19.4The [facility] Physician GroupComment on above: Performed By: #### GLULS #### Point of Care testing ,Free Lambda Light Chains, S24.5 mg/LNormal5.7-26.3[facility] Comment on above:Performed By: #### GLULS #### Point of Care testing ,Lemitar/Lambda Ratio, S1.08Abpzmm2.26-1.65The [facility] Physician GroupComment on above:Result Comment: Performed at: - [facility] [id number] Enamel Sprayer: Elpidio Delgado PhD, Phone: [phone] PERFORMED BY: [place] [address] PATHOLOGIST DIRECTOR OF PHOTOGRAPHY LOIDA RAMOS M.D.Performed By: #### GLULS #### Point of Care testing ,Glomerular filtration rate [Volume Rate/Area] in Serum, Plasma or Blood by CreatinineOrdered By: Claire Choi on 27-29-5155Hmkiwrfgpm filtration rate [Volume Rate/Area] in Serum, Plasma or Blood by Rokmjdgcej26.153 mL/MinOhio State East HospitalGlucose [Mass/volume] in Serum or PlasmaOrdered By: Claire Choi on 33-51-4505Eglfukd [Mass/Vol]161 mg/mMWygf72-909SbvxpzzogOhio State East HospitalComment on above:ADA recommended reference rangeRandom Glucose [...] recommended reference rangePerformed By: #### LACTIC #### [facility] [address] [place] [id number] USAHematocrit [Volume Fraction] of Blood by Automated count Ordered By: Claire Burgessbhargav on 69-61-1308Jscxdfkxlu (Bld) [Volume fraction] 38.2 %Yvehui81.0-46.4FZanesville City HospitalComment on above:Performed By: #### LACTIC #### [facility] [address] [place] [id number] USAHemoglobin [Mass/volume] in BloodOrdered By: Claire Steph on 60-50-1252Oeawgjezrd (Bld) [Mass/Vol]12.9 g/zXHkirfo17.8-15.4 [facility] East HospitalComment on above:Performed By: #### LACTIC #### [facility] [address] [place] [address] USAImmunofixation,Serumon 42-41-7682Reakvrroozhfol, Serum Comment:Normal.The [facility] Physician GroupComment on above:Result Comment: Presence of monoclonal protein is unclear at this time. Suggest repeat in 3 to 6 months if clinically indicated.Performed By: #### GLULS #### Point of Care testing ,Immunoglobulin A, Mpzlf751 mg/iUFbuqya90-651Phj [facility] Comment on above:Performed By: #### GLULS #### Point of Care testing ,Immunoglobulin G961 mg/lFGywfgv533-3564Fvv [facility] Physician GroupComment on above:Performed By: #### GLULS #### Point of Care testing ,Immunoglobulin M, Uviwe974 mg/rZAnckyk00-838Gkp [facility] Comment on above:Result Comment: Performed at: - [facility] [address], [place], [place] [id number] Enamel Sprayer: Elpidio Delgado PhD, Phone: [phone] By: #### GLULS #### Point of Care testing ,Leukocytes [#/volume] corrected for nucleated erythrocytes in Blood by Automated counOrdered By: Claire Choi on 10-16-2845BPI corrected for nucl RBC Auto (Bld) [#/Vol]8.0 10*3/uL3.8-11.6FZanesville City Hospital Leukocytes [#/volume] in Blood by Automated countOrdered By: Claire Choi on 50-12-9938QLX (Bld) [#/Vol]8.0 10*3/uLNormal3.8-11.6FZanesville City HospitalComment on above:Performed By: #### LACTIC #### [facility] [address] [place] [id number] USALymphocytes [#/volume] in Blood by Automated countOrdered By: Claire Choi on 91-97-7007Selhfkakcjn (Bld) [#/Vol]1.9 10*3/uLNormal 1.00-4.8Ohio State East HospitalComment on above:Performed By: #### LACTIC #### [facility] [address] [place] [address] USALymphocytes/100 leukocytes in Blood by Automated count Ordered By: Claire Choi on 88-23-7481Lxhuzqvvuua/100 WBC (Bld)23.3 %Normal .[facility] State East HospitalComment on above:Performed By: #### LACTIC #### [facility] [address] [place], [place] [address] USAH [Entitic mass] by Automated countOrdered By: Claire Choi on 07-47-8137UFV (RBC) [Entitic mass]31.6 ezGffqgy08.7-34.3FZanesville City HospitalComment on above:Performed By: #### LACTIC #### [facility] [address] StreetHC Auto (RBC) [Mass/Vol]Ordered By: Claire Choi on 80-99-0906VCWZ (RBC) [Mass/Vol]33.8 g/dL32.0-35.0[facility] HospitalMCV [Entitic volume] by Automated countOrdered By: Claire Choi on 33-88-3044ENN (RBC) [Entitic vol]93.5 fVNlwjnf61-028UxduarmulOhio State East HospitalComment on above:Performed By: #### LACTIC #### [facility] [address] [place] [address] USAMonocytes [#/volume] in Blood by Automated countOrdered By: Claire Choi on 15-99-4205Ufalbhznj (Bld) [#/Vol]0.5 10*3/uLNormal 0.0-0.8[facility] State East HospitalComment on above:Performed By: #### LACTIC #### [facility] [address] [place] [address] USAMonocytes/100 leukocytes in Blood by Automated count Ordered By: Claire Choi on 60-12-2639Juqdiwgcb/100 WBC (Bld)5.9 %Normal. [facility] East HospitalComment on above:Performed By: #### LACTIC #### [facility] [address] [place] [address] USANeutrophils [#/volume] in Blood by Automated countOrdered By: Claire Choi on 17-55-5274Wzlgrrpqgoh (Bld) [#/Vol]5.5 10*3/uLNormal 1.8-7.7FZanesville City HospitalComment on above:Performed By: #### LACTIC #### [facility] [address] [place] [address] USANeutrophils/100 leukocytes in Blood by Automated count Ordered By: Claire Choi on 75-34-9645Okqgksnvwqq/100 WBC (Bld)69.0 %Normal .[facility] East HospitalComment on above:Performed By: #### LACTIC #### [facility] [address] [place] [address] USANo Panel InformationOrdered By: Claire Choi on 46-20-5967Itnoahky Creatinine Clearance (Chem21.06Ohio [facility] East HospitalProtein Electrophoresis M-SpikeNot observed g/dLNot ObservedOhio State East HospitalProtein Electrophoresis NoteComment.[facility] State East HospitalComment on above:Protein electrophoresis scan will follow via computer,mail, or director of architecture delivery.Performed at: [facility] [employer] [id number] Director: Elpidio Delgado PhD, Phone: [phone] Nucleated erythrocytes [Presence] in Blood by Automated countOrdered By: Claire Choi on 15-32-9357Qsxntoyjg RBC Auto Ql (Bld)0.0 /100{WBC}0-0.5FZanesville City HospitalPlatelet mean volume [Entitic volume] in Blood by Automated countOrdered By: Claire Choi on 41-44-0314Lvjkymkt mean volume (Bld) [Entitic vol]9.6 fLNormal6.3-10.7FZanesville City HospitalComment on above:Performed By: #### LACTIC #### [facility] [address] [place] [address] USAPlatelets [#/volume] in Blood by Automated countOrdered By: Claire Choi on 13-00-4378Oebvqfdpn (Bld) [#/Vol]184 10*3/uLNormal 150-450Ohio State East HospitalComment on above:Performed By: #### LACTIC #### [facility] [address] [place] [address] USAPotassium [Moles/volume] in Serum or PlasmaOrdered By: Claire Choi on 07-99-4610Rdfkpieqv [Moles/Vol]3.9 mmol/LNormal3.5-5.1 [facility] East HospitalComment on above:Performed By: #### LACTIC #### [place] [address] USAProtein Electrophoresis, Serumon 08-12-2025 Vsxde-5-Argmdrrp8.1 g/dLNormal0.0-0.4The [facility] Physician GroupComment on above:Performed By: #### GLULS #### Point of Care testing ,Mlime-9-Gjxkhlwh6.0 g/dLNormal0.4-1.0The [facility] Physician GroupComment on above:Performed By: #### GLULS #### Point of Care testing ,Beta Globulin0.9 g/dLNormal0.7-1.3The [facility] Physician GroupComment on above:Performed By: #### GLULS #### Point of Care testing ,Gamma Globulin1.0 g/dLNormal0.4-1.8The [facility] Physician GroupComment on above:Performed By: #### GLULS #### Point of Care testing ,M-SpikeNot ObservedNormalNot ObservedThe Formerly [facility] Physician GroupComment on above:Performed By: #### GLULS #### Point of Care testing ,SPE-NoteCommentNormal.[facility] Physician GroupComment on above:Result Comment: Protein electrophoresis scan will follow via computer, mail, or director of architecture delivery. Performed at: - [facility] [id number] Enamel Sprayer: Elpidio Delgado PhD, Phone: [phone] By: #### GLULS #### Point of Care testing ,Protein [Mass/volume] in Serum or PlasmaOrdered By: Claire Choi on 86-54-2087Uropfpm [Mass/Vol]6.7 g/dLNormal6.4-8.9[facility] State East HospitalComment on above:Performed By: #### LACTIC #### [facility] [address] [place] [address] USASerum free kappa light chain measurementOrdered By: Claire Choi on 07-08-7061Plqkpybwzndjfn light chains.kappa.free (S) [Mass/Vol]44.7 mg/LHigh3.3-19.4FCleveland Clinic Fairview Hospitalerum globulin measurement (mass/volume)Ordered By: Claire Choi on 42-46-3431Nbyuhyts (S) [Mass/Vol]3.1 g/dLNormal2.2-3.9[facility] East HospitalComment on above:Performed By: #### GLULS #### Point of Care testing ,Serum globulin measurement by calculation (mass/volume)Ordered By: Claire Choi on 51-78-0747Uqbgtnvx (S) [Mass/Vol]2.9 g/dLNormalOhio State East HospitalComment on above:Performed By: #### LACTIC #### [facility] [address] [place] [address] USASerum immunoglobulin free kappa light chains/immunoglobulin free lambda light chainsOrdered By: Claire Choi on 54-01-7194Nigizbyrefugcj light chains.kappa.free/Immunoglobulin light chains.lambda.free (S) [Mass ratio]1.33Hwsx5.26-1.65[facility] State East HospitalComment on above:Performed at: [employer] [address] [id number] Director: Elpidio Delgado PhD, Phone: [phone] or plasma IgA measurement (mass/volume)Ordered By: Claire Choi on 18-12-3826AoU [Mass/Vol]231 mg/oQ45-522XycrpxkgwTrumbull Memorial Hospitalerum or plasma IgG measurement (mass/volume)Ordered By: Claire Choi on 08-12-2025 IgG [Mass/Vol]961 mg/qU035-2766LohukcerdTrumbull Memorial Hospitalerum or plasma IgM measurement (mass/volume)Ordered By: Claire Choi on 50-50-9809VqP [Mass/Vol]126 mg/eV42-258XqotqiqifOhio State East HospitalComment on above: Performed at: [email or web address] [id number] Director: Elpidio Delgado PhD, Phone: [phone] or plasma albumin measurement (mass/volume)Ordered By: Claire Choi on 91-15-6305Qibyqsj [Mass/Vol]3.3 g/dLNormal2.9-4.4FZanesville City HospitalComment on above:Performed By: #### GLULS #### Point of Care testing ,Serum or plasma albumin/globulin mass ratioOrdered By: Claire Choi on 58-31-1103Yojcttp/Globulin [Mass ratio]1.3 {ratio}NormalOhio State East HospitalComment on above:Performed By: #### LACTIC #### [facility] [address] [place] [id number] USAAlbumin/Globulin [Mass ratio]1.1 {ratio}Normal0.7-1.7 [facility] East HospitalComment on above:Performed By: #### GLULS #### Point of Care testing ,Serum or plasma alpha 1 globulin measurement by electrophoresis (mass/volume) Ordered By: Claire Choi on 65-23-4649Jkexj 1 globulin Elph [Mass/Vol]0.1 g/dL0.0-0.4FCleveland Clinic Fairview Hospitalerum or plasma alpha 2 globulin measurement by electrophoresis (mass/volume)Ordered By: Claire Choi on 62-14-1722Krisd 2 globulin Elph [Mass/Vol]1.0 g/dL0.4-1.0Trumbull Memorial Hospitalerum or plasma anion gap determinationOrdered By: Claire Choi on 94-91-1621Nrndf gap [Moles/Vol]10.3 mmol/LNormal6.0-15.0[facility] East HospitalComment on above:Performed By: #### LACTIC #### [facility] [address] [place], [place] [address] USASerum or plasma beta globulin measurement by electrophoresis (mass/volume)Ordered By: Claire Choi on 04-11-2793Jtwi globulin Elph [Mass/Vol]0.9 g/dL0.7-1.3FCleveland Clinic Fairview Hospitalerum or plasma gamma globulin measurement by electrophoresis (mass/volume)Ordered By: Claire Choi on 75-09-6282Wedzj globulin Elph [Mass/Vol]1.0 g/dL0.4-1.8 Trumbull Memorial Hospitalerum or plasma immunoglobulin free lambda light chains measurement (mass/volume)Ordered By: Claire Choi on 24-56-3544Djmifmczvustcm light chains.lambda.free [Mass/Vol]24.5 mg/L5.7-26.3 Tr[facility]ull Memorial Hospitalerum total protein measurementOrdered By: Claire Choi on 78-52-2889Bugemlv [Mass/Vol]6.4 g/dLNormal6.0-8.5FZanesville City HospitalComment on above:Performed By: #### GLULS #### Point of Care testing ,Sodium [Moles/volume] in Serum or PlasmaOrdered By: Claire Choi on 23-47-7950Okedra [Moles/Vol]137 mmol/MLomlnj394-916JviljnjisOhio State East HospitalComment on above:Performed By: #### LACTIC #### [facility] [address] [place] [address] USAUrea nitrogen [Mass/volume] in Serum or PlasmaOrdered By: Claire Choi on 73-25-6504Vssx nitrogen [Mass/Vol]35 mg/dLHigh7-25Ohio State East HospitalComment on above:Performed By: #### LACTIC #### [place] [id number] USAXR bone surveyon 80-70-9180HQ bone surveyCHILDREN'S HOSPITAL FOR RE[facility]IL[facility] Main [place] [address] [place], [place] [address] XRay Report Signed Patient: Hailee Trivedi MR#: [id number] : 1940 Acct:[id number] Age/Sex: 85 / F ADM Date: 08/12/25 Loc: Room: Type: [facility] Attending Dr: Claire Choi II DO Copies to: Claire Choi [...] formation along the iliac wings. A right-sided Anfkwc-z-Ueii is present. There is evidence of prior [...] Huynh M.D. 08/12/2025 5:01 PM Dictation Location: [place] [address] Transcribed By: AISHA 08/12/25 170 Dictated By: Armando Huynh II, MD 08/12/25 165 Signed By: 08/12/251700[facility] Physician GroupBasophils Auto (Bld) [#/Vol] Ordered By: Phillip Arroyo on 49-60-7257Fpmasoyis (Bld) [#/Vol]0.0 10 3/uL0.0-0.1 [facility] HospitalBasophils/100 WBC Auto (Bld)Ordered By: Phillip Arroyo on 19-67-4166Jeolozyhh/100 WBC (Bld)0.4 %0.2-2.0[facility] HospitalEosinophils/100 WBC Auto (Bld)Ordered By: Phillip Arroyo on 72-18-2208Nalbwepypjg/100 WBC (Bld)1.6 %0.9-7.0[facility] Erythrocyte distribution width Auto (RBC) [Ratio]Ordered By: Phillip Arroyo on 56-85-5204Cizmhmdimtl distribution width (RBC) [Ratio]12.8 %11.0-15.0[facility] HospitalGlobulin Calc (S) [Mass/Vol]Ordered By: Phillip Arroyo on 20-26-2759Vntkyghl (S) [Mass/Vol]4.0 g/dLOhio State East Hospital Glomerular filtration rate (GFR) estimation in non- AmericanOrdered By: Phillip Arroyo on 02-36-4527ZZB/1.73 sq M.predicted among non-blacks MDRD (S/P/Bld) [Vol rate/Area]17 mL/min/{1.73_m2}Low>=60 mL/min/1.73m 2FZanesville City HospitalHematocrit Auto (Bld) [Volume fraction]Ordered By: Phillip Arroyo on 53-74-8369Vnuqciupji (Bld) [Volume fraction]39.5 %36.0-48.0[facility] HospitalHemoglobin [Mass/volume] in BloodOrdered By: Phillip Arroyo on 90-55-9071Tnkgywdfpg (Bld) [Mass/Vol]12.8 g/dL12.0-16.0[facility] HospitalLaboratory - Chemistry and Chemistry - challengeOrdered By: Phillip Arroyo on 09-88-8385Fpoxlbdlb Ql (U)NegativeNEGATIVEOhio State East HospitalGlucose (U) [Mass/Vol]NegativeNEGATIVEOhio State East Hospital Ketones Ql (U)NegativeNEGATIVEOhio State East HospitalpH (U)6.0 [pH] 5.0-9.0Trumbull Memorial Hospitalpecific gravity (U) [Rel density]1.010 1.005-1.025Ohio [facility] HospitalUrobilinogen Qn (U)0.2 {Marley'U}/dL0.2-1.0[facility] HospitalAlbumin [Mass/Vol]3.1 g/dL Low3.4-5.0[facility] HospitalALP [Catalytic activity/Vol]128 U/L Yxwa02-639EnepkhtjgOhio State East HospitalALT [Catalytic activity/Vol]16 U/L 14-59[facility] HospitalAST [Catalytic activity/Vol]11 U/WCrc31-13 [facility] HospitalBilirubin [Mass/Vol]0.3 mg/dL0.2-1.0[facility] HospitalCalcium [Mass/Vol]8.6 mg/dL8.5-10.1FZanesville City HospitalChloride [Moles/Vol]109 mmol/FQhel76-856RohqunxyiOhio State East HospitalCO2 [Moles/Vol]24.4 mmol/L21.0-32.0[facility] Creatinine [Mass/Vol]2.62 mg/dLHigh0.55-1.02[facility] GFR/1.73 sq M.predicted MDRD (S/P/Bld) [Vol rate/Area]21 mL/min/{1.73_m2}Low>=60 mL/min/1.73m 2FZanesville City HospitalGlucose [Mass/Vol]110 mg/dLHigh 74-106[facility] HospitalMagnesium [Mass/Vol]2.1 mg/dL1.8-2.4 [facility] HospitalPotassium [Moles/Vol]4.8 mmol/L3.5-5.1FZanesville City HospitalProtein [Mass/Vol]7.1 g/dL6.4-8.2FCleveland Clinic Fairview Hospitalodium [Moles/Vol]141 mmol/C658-985HujepipxwOhio State East HospitalUrea nitrogen [Mass/Vol]40.0 mg/dLHigh7.0-18.0[facility] HospitalUrea nitrogen/Creatinine [Mass ratio]15.3 mg/mgOhio State East HospitalLaboratory - Hematology and Cell countsOrdered By: Phillip Arroyo on 43-30-6007Hqfjnhbd granulocytes/100 WBC (Bld)0.3 %0.0-0.5FZanesville City HospitalLaboratory - Specimen informationOrdered By: Phillip Arroyo on 74-07-4309Fjyehqniyi (U)CLEARCLEARFZanesville City HospitalColor (U)LT. YELLOWYELLOWOhio State East HospitalLaboratory - UrinalysisOrdered By: Phillip Arroyo on 76-83-6159Oiyzhgumw esterase Test strip Ql (U)NegativeNEGATIVE [facility] HospitalMucus Ql (Urine sed)NONE SEENNONE SEENOhio State East HospitalNitrite Ql (U)NegativeNEGATIVEOhio State East HospitalProtein Ql (U)TRACE mg/dLNEG/TRACEOhio State East Hospital Leukocytes [#/volume] corrected for nucleated erythrocytes in Blood by Automated counOrdered By: Phillip Arroyo on 31-77-6949RMH corrected for nucl RBC Auto (Bld) [#/Vol]7.6 10 3/uL4.0-11.0[facility] HospitalLymphocytes Auto (Bld) [#/Vol]Ordered By: Phillip Arroyo on 09-56-3539Hrhkziionjg (Bld) [#/Vol]2.2 10 3/uL1.2-3.8[facility] HospitalLymphocytes/100 WBC Auto (Bld) Ordered By: Phillip Arroyo on 97-72-9797Duemeepryua/100 WBC (Bld)29.5 %20.5-60.0 [facility] HospitalMCH Auto (RBC) [Entitic mass]Ordered By: Phillip Arroyo on 73-68-5840SLQ (RBC) [Entitic mass]31.2 pg26.7-34.0[facility] HospitalMCHC Auto (RBC) [Mass/Vol]Ordered By: Phillip Arroyo on 07-08-2025 MCHC (RBC) [Mass/Vol]32.4 g/dL29.9-35.2FZanesville City HospitalMCV Auto (RBC) [Entitic vol]Ordered By: Phillip Arroyo on 62-99-1732KQM (RBC) [Entitic vol] 96.3 fL81.0-99.0[facility] HospitalMonocytes Auto (Bld) [#/Vol] Ordered By: Phillip Arroyo on 94-44-2661Wnbaqooaq (Bld) [#/Vol]0.7 10 3/uL0.3-0.8 [facility] HospitalMonocytes/100 WBC Auto (Bld)Ordered By: Phillip Arroyo on 54-46-0493Eqdmwnnml/100 WBC (Bld)8.7 %1.7-12.0[facility] HospitalNeutrophils Auto (Bld) [#/Vol]Ordered By: Phillip Arroyo on 47-32-0522Gippuymafqn (Bld) [#/Vol]4.5 10 3/uL1.4-6.5FZanesville City HospitalNeutrophils/100 WBC Auto (Bld)Ordered By: Phillip Arroyo on 07-08-2025 Neutrophils/100 WBC (Bld)59.5 %43.0-75.0[facility] HospitalNo Panel InformationOrdered By: Phillip Arroyo on 17-94-1142Addvq BacteriaNONE SEEN #/HPFNONE SEENOhio State East HospitalUrine Culture ReflexedNOOhio State East HospitalUrine Occult BloodNegativeNEGATIVEOhio State East HospitalUrine Other CastsNONE SEEN #/LPFNONE SEENOhio State East HospitalUrine Other CrystalsNone Seen #/HPFNone SeenOhio State East HospitalUrine RBCNONE SEEN #/HPF0-2FZanesville City HospitalUrine Squamous Epithelial CellsRARE #/LPFNONE/RAREOhio State East Hospital Urine WBC0-2 #/HPFAbnormalNONE [facility] CenterEosinophils # (Auto)0.1 10 3/uL0.0-0.7FZanesville City HospitalImmature Granulocyte # (Auto)0.02 10 3/uL0.00-0.03[facility] HospitalTroponin I High Sensitivity7.2 pg/mL4.0-51.3FZanesville City HospitalComment on above: CUT-OFF POINTS HAVE BEEN [...] (Bld) [Entitic vol]Ordered By: Phillip Arroyo on 76-81-7581Sabppwar mean volume (Bld) [Entitic vol]11.3 fL9.5-13.5 [facility] HospitalPlatelets Auto (Bld) [#/Vol]Ordered By: Phillip Arroyo on 74-99-0138Fmgftqqll (Bld) [#/Vol]179 10 3/pW682-309BlfgtwjidOhio State East HospitalRBC Auto (Bld) [#/Vol]Ordered By: Phillip Arroyo on 05-23-7456ONL (Bld) [#/Vol]4.10 10 6/uLLow4.20-5.40Tr[facility]ull Memorial Hospitalerum or plasma albumin/globulin mass ratioOrdered By: Phillip Arroyo on 07-08-2025 Albumin/Globulin [Mass ratio]0.8 {ratio}[facility] Hospitalerum or plasma anion gap determinationOrdered By: Phillip Arroyo on 34-06-6573Asfun gap [Moles/Vol]12.4 mmol/LFZanesville City HospitalECG 12 Leadon 05-24-2025 Normal sinus rhythm with borderline first-degree AV blockCPSelect Medical Specialty [facility] [place] Work Phone: cbc W Auto Differential panel (Bld)on 04-01-2025 Basophils (Bld) [#/Vol]0.1 10*3/uL0.0 - 0.2 10*3/uLNOMS HealthcareBasophils/100 WBC Manual cnt (Syn fld)1 %.NOMS HealthcareEosinophils (Bld) [#/Vol]0.1 10*3/uL 0.0 - 0.45 10*3/uLNOMS HealthcareEosinophils/100 WBC Manual cnt (Syn fld)1.7 %. [facility] HealthcareErythrocyte distribution width (RBC) [Ratio]15.3 %11.9 - 15.3 % NOMS HealthcareHematocrit (Bld) [Volume fraction]37.8 %34.0 - 46.4 %[facility] HealthcareHemoglobin (Bld) [Mass/Vol]12.7 g/dL11.8 - 15.4 g/dLNOAK Healthcare Lymphocytes (Bld) [#/Vol]2 10*3/uL1.00 - 4.8 10*3/uLNOMS Healthcare Lymphocytes/100 WBC Manual cnt (Syn fld)26.8 %.[facility] HospitalMCH (RBC) [Entitic mass]30.5 pg24.7 - 34.3 pgNOSaint John's Regional Health CenterMCHC (RBC) [Mass/Vol]33.5 g/dL32.0 - 35.0 g/dLNOSaint John's Regional Health CenterMCV (RBC) [Entitic vol]91.2 fL80 - 100 fLNOAK Healthcare Monocytes (Bld) [#/Vol]0.6 10*3/uL0.0 - 0.8 [...] LM.HPF (Urine sed) [#/Area]7.6 10*3/uL3.8 - 11.6 10*3/uLNOSaint John's Regional Health CenterNOAK HealthcareComplete Blood Count Auto Diffon 58-88-3414Dtywbznwu (Bld) [#/Vol]0.1 10*3/uLNormal0.0-0.2The [facility] Physician GroupComment on above:Result Comment: PERFORMED BY: [place] [address] [place] [address] PATHOLOGIST DIRECTOR OF PHOTOGRAPHY CARLOS A CARD M.D.Performed By: #### GLULS #### Point of Care testing ,Basophils/100 WBC (Bld)1.0 %Normal.The [facility] Physician GroupComment on above:Performed By: #### GLULS #### Point of Care testing ,Eosinophils (Bld) [#/Vol]0.1 10*3/uLNormal0.0-0.45The [facility] Comment on above:Performed By: #### GLULS #### Point of Care testing ,Eosinophils/100 WBC (Bld)1.7 %Normal.[facility] Physician GroupComment on above:Performed By: #### GLULS #### Point of Care testing ,Erythrocyte distribution width (RBC) [Ratio]15.3 %Ackjjo83.9-15.3The [facility] Physician GroupComment on above:Performed By: #### GLULS #### Point of Care testing ,Hematocrit (Bld) [Volume fraction]37.8 %Rdpzgr63.0-46.4The [facility] Physician GroupComment on above:Performed By: #### GLULS #### Point of Care testing ,Hemoglobin (Bld) [Mass/Vol]12.7 g/jNHbbjzp43.8-15.4The [facility] Physician GroupComment on above:Performed By: #### GLULS #### Point of Care testing ,Lymphocytes (Bld) [#/Vol]2.0 10*3/uLNormal1.00-4.8The [facility] Comment on above:Performed By: #### GLULS #### Point of Care testing ,Lymphocytes/100 WBC (Bld)26.8 %Normal.[facility] Physician GroupComment on above:Performed By: #### GLULS #### Point of Care testing ,MCH (RBC) [Entitic mass]30.5 hsBddllp04.7-34.3The [facility] Comment on above:Performed By: #### GLULS #### Point of Care testing ,MCV (RBC) [Entitic vol]91.2 xZGreonw37-130Asc [facility] Physician GroupComment on above:Performed By: #### GLULS #### Point of Care testing ,Mean Corpuscular HGB Conc33.5 g/zCDohiib87.0-35.0The [facility] Physician [facility] Comment on above:Performed By: #### GLULS #### Point of Care testing ,Monocytes (Bld) [#/Vol]0.6 10*3/uLNormal0.0-0.8The [facility] Comment on above:Performed By: #### GLULS #### Point of Care testing ,Monocytes/100 WBC (Bld)8.1 %Normal.[facility] Physician GroupComment on above:Performed By: #### GLULS #### Point of Care testing ,Neutrophils (Bld) [#/Vol]4.7 10*3/uLNormal1.8-7.7The [facility] Comment on above:Performed By: #### GLULS #### Point of Care testing ,Neutrophils/100 WBC (Bld)62.4 %Normal.[facility] Physician GroupComment on above:Performed By: #### GLULS #### Point of Care testing ,NRBC%0.1 /100{WBC}Normal0-0.5The [facility] Physician GroupComment on above: Performed By: #### GLULS #### Point of Care testing ,Platelet mean volume (Bld) [Entitic vol]9.1 fLNormal6.3-10.7The [facility] Physician GroupComment on above:Performed By: #### GLULS #### Point of Care testing ,Platelets (Bld) [#/Vol]206 10*3/zPDaqqor703-330Khd [facility] Physician [facility] Comment on above:Performed By: #### GLULS #### Point of Care testing ,RBC (Bld) [#/Vol]4.14 10*6/uLNormal3.60-5.00The [facility] Physician [facility] Comment on above:Performed By: #### GLULS #### Point of Care testing ,WBC (Bld) [#/Vol]7.6 10*3/uLNormal3.8-11.6The [facility] Physician GroupComment on above:Performed By: #### GLULS #### Point of Care testing ,Comprehensive Metabolic Panelon 79-54-4682Qaoaucq [Mass/Vol]3.8 g/dLNormal 3.5-5.7The [facility] Physician GroupComment on above:Performed By: #### GLULS #### Point of Care testing ,Albumin/Globulin [Mass ratio]1.3 {ratio}NormalThe [facility] Comment on above:Performed By: #### GLULS #### Point of Care testing ,ALP [Catalytic activity/Vol]124 U/NYwmf88-890Sux [facility] Comment on above:Performed By: #### GLULS #### Point of Care testing ,ALT [Catalytic activity/Vol]8 U/LNormal7-52The [facility] Physician GroupComment on above:Performed By: #### GLULS #### Point of Care testing ,Anion gap [Moles/Vol]11.7 mmol/LNormal6.0-15.0The [facility] Physician [facility] Comment on above:Performed By: #### GLULS #### Point of Care testing ,AST [Catalytic activity/Vol]13 U/TDitwup52-48Fee [facility] Physician [facility] Comment on above:Performed By: #### GLULS #### Point of Care testing ,Bilirubin [Mass/Vol]0.3 mg/dLNormal0.3-1.0The [facility] Physician GroupComment on above:Performed By: #### GLULS #### Point of Care testing ,Calcium [Mass/Vol]8.4 mg/dLLow8.6-10.3The [facility] Physician GroupComment on above:Performed By: #### GLULS #### Point of Care testing ,Chloride [Moles/Vol]113 mmol/NCdhf76-717Tbj [facility] Physician GroupComment on above:Performed By: #### GLULS #### Point of Care testing ,CO2 [Moles/Vol]18.8 mmol/LLow21.0-31.0The [facility] Physician GroupComment on above:Performed By: #### GLULS #### Point of Care testing ,Creatinine [Mass/Vol]2.40 mg/dLHigh0.60-1.20The [facility] Physician [facility] Comment on above:Performed By: #### GLULS #### Point of Care testing ,Creatinine Clr Calc Mrtvecxw71.90NormBaptist Health Fishermen’s Community Hospital Physician GroupComment on above:Result Comment: PERFORMED BY: [facility] [place] [address] PATHOLOGIST DIRECTOR OF PHOTOGRAPHY CARLOS A CARD M.D.Performed By: #### GLULS #### Point of Care testing ,Estimated GFR19.672 mL/MinNoECU Health [facility] Physician [facility] HospitalComment on above: Performed By: #### GLULS #### Point of Care testing ,Globulin (S) [Mass/Vol]2.9 g/dLNormal2.2-3.9The [facility] Comment on above:Performed By: #### GLULS #### Point of Care testing ,Glucose [Mass/Vol]101 mg/lQKtmb45-771Ind [facility] Physician GroupComment on above:Result Comment: Random Glucose Reference Range is dependent on time and content of last meal. Glucose of more than 200 mg/dL in a nonstressed, ambulatory subject supports the diagnosis of Diabetes Mellitus. ADA recommended reference rangePerformed By: #### GLULS #### Point of Care testing ,Potassium [Moles/Vol]4.5 mmol/LNormal3.5-5.1The [facility] Comment on above:Performed By: #### GLULS #### Point of Care testing ,Protein [Mass/Vol]6.7 g/dLNormal6.4-8.9The [facility] Physician GroupComment on above:Performed By: #### GLULS #### Point of Care testing ,Sodium [Moles/Vol]139 mmol/HRsuqvr761-334Krz [facility] Physician GroupComment on above:Performed By: #### GLULS #### Point of Care testing ,Urea nitrogen [Mass/Vol]33 mg/dLHigh7-25The [facility] Physician GroupComment on above:Performed By: #### GLULS #### Point of Care testing ,Comprehensive metabolic panelon 39-72-4781Jysddjm [Mass/Vol]3.8 g/dL3.5 - 5.7 g/dLNOMS HealthcareAlbumin/Globulin [Mass [...] - 1.20 mg/dL NOMS HealthcareCREATININE CLR CALC RZSMBRIL23.9NOMS HealthcareGFR/1.73 sq M.predicted MDRD (S/P/Bld) [Vol rate/Area]19.672 mL/min/{1.73_m2}mL/MinNOMS HealthcareGlobulin (S) [Mass/Vol]2.9 g/dLNOMS HealthcareGlucose [Mass/Vol]101 mg/nRRfkf02 - 100 mg/dLNOMS HealthcareComment on above:Random Glucose [...] mmol/LNOMS HealthcareUrea nitrogen [Mass/Vol]33 mg/dLHigh7 - 25 mg/dLNOAK HealthcareNOMS HealthcareFree K+L LT Chains, Qn, Son 40-06-2145Pgcd Lemitar Light Chains, S44.9 mg/LHigh3.3-19.4The [facility] Physician GroupComment on above:Performed By: #### GLULS #### Point of Care testing ,Free Lambda Light Chains, S25.1 mg/LNormal5.7-26.3The [facility] Comment on above:Performed By: #### GLULS #### Point of Care testing ,Lemitar/Lambda Ratio, S1.45Uaxc6.26-1.65The [facility] Physician GroupComment on above:Result Comment: Performed at: [facility] [address], [place], [place] [id number] Enamel Sprayer: Elpidio Delgado PhD, Phone: [phone] PERFORMED BY: [facility] [place] [address] PATHOLOGIST DIRECTOR OF PHOTOGRAPHY CARLOS A CARD M.D.Performed By: #### GLULS #### Point of Care testing ,Immunofixation,Serumon 53-46-9935Qkloruxpwhtgnm, SerumComment:Normal.[facility] Physician GroupComment on above:Result Comment: Presence of monoclonal protein is unclear at this time. Suggest repeat in 3 to 6 months if clinically indicated.Performed By: #### GLULS #### Point of Care testing ,Immunoglobulin A, Fotkg481 mg/qLUggjqg00-984Jjk [facility] Comment on above:Performed By: #### GLULS #### Point of Care testing ,Immunoglobulin G1022 mg/rAFrxprg162-8311Nhs [facility] Physician GroupComment on above:Performed By: #### GLULS #### Point of Care testing ,Immunoglobulin M, Duyjl446 mg/eDDahyhl61-804Soo [facility] Physician [facility] Comment on above:Result Comment: Performed at: - [place] [address] [address] Sprayer: Elpidio Delgado PhD, Phone: [phone] By: #### GLULS #### Point of Care testing ,Protein Electrophoresis, Serumon 73-31-8061Sbxbixb [Mass/Vol]3.4 g/dLNormal 2.9-4.4The [facility] Physician GroupComment on above:Performed By: #### GLULS #### Point of Care testing ,Albumin/Globulin [Mass ratio]1.2 {ratio}Normal0.7-1.7The [facility] Physician GroupComment on above:Performed By: #### GLULS #### Point of Care testing ,Qtvwa-8-Kgycbfaz4.1 g/dLNormal0.0-0.4The [facility] Physician GroupComment on above:Performed By: #### GLULS #### Point of Care testing ,Huipl-6-Orcmhukn7.9 g/dLNormal0.4-1.0The [facility] Physician GroupComment on above:Performed By: #### GLULS #### Point of Care testing ,Beta Globulin0.8 g/dLNormal0.7-1.3The [facility] Physician GroupComment on above:Performed By: #### GLULS #### Point of Care testing ,Gamma Globulin1.0 g/dLNormal0.4-1.8The [facility] Physician GroupComment on above:Performed By: #### GLULS #### Point of Care testing ,M-SpikeComment:NormalNot ObservedThe [facility] Physician GroupComment on above: Result Comment: SPE shows asymmetrical gamma. Suggest serum HAILEE and free light chain analysis for further evaluation.Performed By: #### GLULS #### Point of Care testing ,Protein [Mass/Vol]6.3 g/dLNormal6.0-8.5The [facility] Physician GroupComment on above:Performed By: #### GLULS #### Point of Care testing ,SPE-NoteCommentNormal.The [facility] Physician GroupComment on above:Result Comment: Protein electrophoresis scan will follow via computer, mail, or director of architecture delivery. Performed at: [place] [address] [address] Sprayer: Elpidio Delgado PhD, Phone: [phone] By: #### GLULS #### Point of Care testing ,ECG 12 Leadon 34-20-6721Iuapwt sinus rhythm with heart rate of 66CPACS [facility] Work Phone: Carbon dioxide, total [Moles/volume] in Serum or PlasmaOrdered By: Elicia Rhodes on 92-50-6319NF5 [Moles/Vol]Carbon dioxide, total [Moles/volume] in Serum or VknlxdTxm73.0-31.0[facility] HospitalChloride [Moles/volume] in Serum or PlasmaOrdered By: Elicia Rhodes on 22-50-5439Xdoslrwe [Moles/Vol]Chloride [Moles/volume] in Serum or PlasmaHigh 98-107[facility] HospitalECG 12 lead ECGon 85-33-0894XZJ 12 lead ECGCHILDREN'S [facility] Main [address] [address] Electrocardiograph Report Signed Patient: Hailee Trivedi MR#: [id number] 306 : 1940 Acct:[id number] Age/Sex: 84 / F ADM Date: 02/26/25 Loc: EL Room: Type: [facility] Attending Dr: Jerrica Overton DIVISION SUPERINTENDENT Ordering Provider: Elicia Rhodes MD Date of [...] Signed By Elicia Rhodes MD 0 02/26/[address] [place] [address] Physician GroupECG post procedureon 02-26-2025 ECG [facility]CH[facility] Main [address] [address] Electrocardiograph Report Signed Patient: Hailee Trivedi MR#: [id number] : 1940 Acct:[id number] Age/Sex: 84 / F ADM Date: 02/26/25 [...] Signed By Elicia Rhodes MD 0 02/26/[address] [place] [address] Physician GroupElectrolyteson 72-82-5922Dryoe gap [Moles/Vol]9.0 mmol/LNormal6.0-15.0The [facility] Physician GroupComment on above:Result Comment: PERFORMED BY: [place] [address] PATHOLOGIST DIRECTOR OF PHOTOGRAPHY CARLOS A CARD M.D.Performed By: #### LACTIC #### [place] [address] USAChloride [Moles/Vol]114 mmol/FJjxb94-408Tuv [facility] Physician GroupComment on above:Performed By: #### LACTIC #### [place] [address] USACO2 [Moles/Vol]19.4 mmol/LLow21.0-31.0The [facility] Physician GroupComment on above:Performed By: #### LACTIC #### [place] [address] USAPotassium [Moles/Vol]4.4 mmol/LNormal3.5-5.1The [facility] Physician GroupComment on above:Performed By: #### LACTIC #### [place] [address] USASodium [Moles/Vol]138 mmol/OXxijnx078-709Xns [facility] Physician GroupComment on above:Performed By: #### LACTIC #### [place] [address] USAPotassium [Moles/volume] in Serum or PlasmaOrdered By: Elicia Rhodes on 61-66-5930Ekbuetjze [Moles/Vol]Potassium [Moles/volume] in Serum or Plasma3.5-5.1FCleveland Clinic Fairview Hospitalerum or plasma anion gap determinationOrdered By: Elicia Rhodes on 96-18-1253Hkbjc gap [Moles/Vol]Serum or plasma anion gap determination6.0-15.0[facility] Hospitalodium [Moles/volume] in Serum or PlasmaOrdered By: Elicia Rhodes on 57-03-2615Dufvtb [Moles/Vol]Sodium [Moles/volume] in Serum or Xferpp816-834MccvivaffOhio State East HospitalBasophils Auto (Bld) [#/Vol]on 22-24-5371Jhgoymehz (Bld) [#/Vol]Automated basophil count0.0-0.1FZanesville City HospitalBasophils/100 WBC Auto (Bld)on 72-92-6099Endaxfbgu/100 WBC (Bld)Automated basophil %0.2-2.0[facility] Eosinophils/100 WBC Auto (Bld)on 42-59-9280Oasvcgtpjli/100 WBC (Bld)Automated eosinophil %Low0.9-7.0[facility] HospitalErythrocyte distribution width Auto (RBC) [Ratio]on 00-94-9831Uemioaghezs distribution width (RBC) [Ratio]Erythrocyte distribution width [Ratio] by Automated count11.0-15.0 [facility] HospitalEstimated glomerular filtration rate (GFR) non- Americanon 05-28-4567BUP/1.73 sq M.predicted among non-blacks MDRD (S/P/Bld) [Vol rate/Area]Estimated glomerular filtration rate (GFR) non- AmericanLow>=60 mL/min/1.73m 2FZanesville City HospitalHematocrit Auto (Bld) [Volume fraction]on 67-03-3771Ltxjtyzdlz (Bld) [Volume fraction]Hematocrit [Volume Fraction] of Blood by Automated count36.0-48.0[facility] HospitalHemoglobin [Mass/volume] in Bloodon 62-06-2952Zyvhcjglwx (Bld) [Mass/Vol] Hemoglobin [Mass/volume] in Blood12.0-16.0[facility] Laboratory - Chemistry and Chemistry - challengeon 63-31-4068Nxdeilq [Mass/Vol] 8.7 mg/dL8.5-10.1FZanesville City HospitalChloride [Moles/Vol]108 mmol/L Zavz95-771IbvhrudvuOhio State East HospitalCO2 [Moles/Vol]19.1 mmol/LLow 21.0-32.0[facility] HospitalCreatinine [Mass/Vol]2.55 mg/dLHigh 0.55-1.02[facility] HospitalGFR/1.73 sq M.predicted MDRD (S/P/Bld) [Vol rate/Area]22 mL/min/{1.73_m2}Low>=60 mL/min/1.73m 2FZanesville City HospitalGlucose [Mass/Vol]106 mg/rS49-329JzpqtbqjxOhio State East Hospital Potassium [Moles/Vol]4.4 mmol/L3.5-5.1FCleveland Clinic Fairview Hospitalodium [Moles/Vol]139 mmol/Y389-236IvgdlzxbiOhio State East HospitalUrea nitrogen [Mass/Vol]37.0 mg/dLHigh7.0-18.0[facility] HospitalUrea nitrogen/Creatinine [Mass ratio]14.5 mg/mgOhio State East Hospital Laboratory - Hematology and Cell countson 08-74-8266Svrnjecp granulocytes/100 WBC (Bld)1.4 %High0.0-0.5FZanesville City HospitalLeukocytes [#/volume] corrected for nucleated erythrocytes in Blood by Automated counon 90-78-8980GMG corrected for nucl RBC Auto (Bld) [#/Vol]Leukocytes [#/volume] corrected for nucleated erythrocytes in Blood by Automated coun4.0-11.0[facility] HospitalLymphocytes Auto (Bld) [#/Vol]on 95-55-1260Moqmwzeqprg (Bld) [#/Vol]Lymphocytes [#/volume] in Blood by Automated count1.2-3.8[facility] HospitalLymphocytes/100 WBC Auto (Bld)on 02-11-2025 Lymphocytes/100 WBC (Bld)Lymphocytes/100 leukocytes in Blood by Automated count 20.5-60.0[facility] HospitalH Auto (RBC) [Entitic mass]on 44-09-1751YCS (RBC) [Entitic mass]MCH [Entitic mass] by Automated count26.7-34.0 [facility] HospitalMCHC Auto (RBC) [Mass/Vol]on 82-78-0063BNTQ (RBC) [Mass/Vol]MCHC [Mass/volume] by Automated count29.9-35.2FUC West Chester HospitalV Auto (RBC) [Entitic vol]on 31-16-6187OBQ (RBC) [Entitic vol] MCV [Entitic volume] by Automated count81.0-99.0[facility] HospitalMonocytes Auto (Bld) [#/Vol]on 11-38-5269Yvqendntu (Bld) [#/Vol]Automated blood monocyte count0.3-0.8[facility] HospitalMonocytes/100 WBC Auto (Bld)on 03-42-8654Fzrqjbpof/100 WBC (Bld)Automated monocyte %1.7-12.0 [facility] HospitalNeutrophils Auto (Bld) [#/Vol]on 02-11-2025 Neutrophils (Bld) [#/Vol]Neutrophils [#/volume] in Blood by Automated countHigh 1.4-6.5FZanesville City HospitalNeutrophils/100 WBC Auto (Bld)on 65-44-0838Zxcujxumbye/100 WBC (Bld)Automated neutrophil %43.0-75.0[facility] HospitalNo Panel Informationon 45-95-2287Trzpqbxtcav # (Auto)0.1 10 3/uL0.0-0.7FZanesville City HospitalImmature Granulocyte # (Auto)0.14 10 3/uLHigh0.00-0.03[facility] HospitalTroponin I High Sensitivity8.0 pg/mL4.0-51.3FZanesville City HospitalComment on above: CUT-OFF POINTS HAVE BEEN [...] volume [Entitic volume] in Blood by Automated count9.5-13.5FZanesville City HospitalPlatelets Auto (Bld) [#/Vol]on 87-34-6282Bdmgsbbax (Bld) [#/Vol]Platelets [#/volume] in Blood by Automated medwl623-290NjeeeazjnOhio State East HospitalRBC Auto (Bld) [#/Vol] on 15-17-6852NGX (Bld) [#/Vol]Erythrocytes [#/volume] in Blood by Automated countLow4.20-5.40Trumbull Memorial Hospitalerum or plasma anion gap determinationon 28-28-1162Pmtwm gap [Moles/Vol]Serum or plasma anion gap determinationOhio State East HospitalBasophils Auto (Bld) [#/Vol]on 30-06-8575Oflmuwmvn (Bld) [#/Vol]Automated basophil count0.0-0.1FZanesville City HospitalBasophils/100 WBC Auto (Bld)on 01-99-6766Xaqxajohq/100 WBC (Bld)Automated basophil %0.2-2.0[facility] Eosinophils/100 WBC Auto (Bld)on 81-03-0865Lqzinwhbuhs/100 WBC (Bld)Automated eosinophil %0.9-7.0[facility] HospitalErythrocyte distribution width Auto (RBC) [Ratio]on 49-03-6573Uytdpbalacu distribution width (RBC) [Ratio]Erythrocyte distribution width [Ratio] by Automated count11.0-15.0 [facility] HospitalEstimated glomerular filtration rate (GFR) non- Americanon 88-85-0170OER/1.73 sq M.predicted among non-blacks MDRD (S/P/Bld) [Vol rate/Area]Estimated glomerular filtration rate (GFR) non- AmericanLow>=60 mL/min/1.73m 2FZanesville City HospitalGlobulin Calc (S) [Mass/Vol]on 09-66-3043Nfgkxnob (S) [Mass/Vol]Serum globulin measurement by calculation (mass/volume)[facility] HospitalHematocrit Auto (Bld) [Volume fraction]on 27-45-2437Hsgvwgzzac (Bld) [Volume fraction]Hematocrit [Volume Fraction] of Blood by Automated count36.0-48.0[facility] HospitalHemoglobin [Mass/volume] in Bloodon 43-73-3317Ebrrpftggc (Bld) [Mass/Vol] Hemoglobin [Mass/volume] in Blood12.0-16.0[facility] - Chemistry and Chemistry - challengeon 32-16-9824Eevwvnt [Mass/Vol] 2.5 g/dLLow3.4-5.0[facility] HospitalALP [Catalytic activity/Vol] 120 U/WNsve04-731YoohowektOhio State East HospitalALT [Catalytic activity/Vol]12 U/KUlk48-54IuzraucjuOhio State East HospitalAST [Catalytic activity/Vol]12 U/L Qrx88-80AngnqwxlsOhio State East HospitalBilirubin [Mass/Vol]0.2 mg/dL0.2-1.0 [facility] HospitalCalcium [Mass/Vol]8.4 mg/dLLow8.5-10.1FZanesville City HospitalChloride [Moles/Vol]112 mmol/XXcoa09-787ZglazhajfOhio State East HospitalCO2 [Moles/Vol]19.1 mmol/LLow21.0-32.0[facility] HospitalCreatinine [Mass/Vol]2.51 mg/dLHigh0.55-1.02[facility] HospitalGFR/1.73 sq M.predicted MDRD (S/P/Bld) [Vol rate/Area]22 mL/min/{1.73_m2}Low>=60 mL/min/1.73m 2FZanesville City HospitalGlucose [Mass/Vol]129 mg/gASnyf28-164WosdxvbkkOhio State East HospitalPotassium [Moles/Vol]4.3 mmol/L3.5-5.1FZanesville City HospitalProtein [Mass/Vol] 5.9 g/dLLow6.4-8.2FCleveland Clinic Fairview Hospitalodium [Moles/Vol]142 mmol/L 136-145[facility] HospitalUrea nitrogen [Mass/Vol]53.0 mg/dLHigh 7.0-18.0[facility] HospitalUrea nitrogen/Creatinine [Mass ratio] 21.1 mg/mgOhio State East HospitalLaboratory - Hematology and Cell countson 18-66-9933Bafjlawu granulocytes/100 WBC (Bld)0.4 %0.0-0.5FZanesville City HospitalLeukocytes [#/volume] corrected for nucleated erythrocytes in Blood by Automated counon 54-36-6674LUU corrected for nucl RBC Auto (Bld) [#/Vol]Leukocytes [#/volume] corrected for nucleated erythrocytes in Blood by Automated coun4.0-11.0[facility] HospitalLymphocytes Auto (Bld) [#/Vol]on 43-32-7176Sflixpbarhb (Bld) [#/Vol]Lymphocytes [#/volume] in Blood by Automated count1.2-3.8[facility] HospitalLymphocytes/100 WBC Auto (Bld)on 57-54-1736Dwwmfdzstme/100 WBC (Bld)Lymphocytes/100 leukocytes in Blood by Automated count20.5-60.0[facility] HospitalH Auto (RBC) [Entitic mass]on 11-22-2460HTY (RBC) [Entitic mass]MCH [Entitic mass] by Automated count26.7-34.0[facility] HospitalMCHC Auto (RBC) [Mass/Vol]on 55-32-7068XYZW (RBC) [Mass/Vol]MCHC [Mass/volume] by Automated count29.9-35.2FZanesville City HospitalMCV Auto (RBC) [Entitic vol]on 71-96-6691HFU (RBC) [Entitic vol]MCV [Entitic volume] by Automated count 81.0-99.0[facility] HospitalMonocytes Auto (Bld) [#/Vol]on 66-84-2990Fjvtcbmyp (Bld) [#/Vol]Automated blood monocyte count0.3-0.8[facility] HospitalMonocytes/100 WBC Auto (Bld)on 05-85-0811Widmrekrg/100 WBC (Bld)Automated monocyte %1.7-12.0[facility] Neutrophils Auto (Bld) [#/Vol]on 57-79-0494Cnloetjskpl (Bld) [#/Vol]Neutrophils [#/volume] in Blood by Automated count1.4-6.5FZanesville City Hospital Neutrophils/100 WBC Auto (Bld)on 01-24-2569Hkwnmnqjjpo/100 WBC (Bld)Automated neutrophil %43.0-75.0[facility] HospitalNo Panel Informationon 63-00-7154Syilekoxubi # (Auto)0.2 10 3/uL0.0-0.7FZanesville City HospitalImmature Granulocyte # (Auto)0.03 10 3/uL0.00-0.03[facility] HospitalVenous Blood Partial Pressure CO240.3 mm[Hg]40.0-52.0[facility] HospitalVenous Blood pH7.975Ngp8.330-7.430[facility]40.3 mm[Hg]40.0-52.0[facility]7.233Low 7.330-7.430[facility]0.2 10 3/uL0.0-0.7FZanesville City Hospital2.5 g/dLLow3.4-5.0[facility]120 U/LHigh 46-116[facility]12 U/CTug17-40HdtodnvmkOhio State East Hospital0.03 10 3/uL0.00-0.03[facility]21.1FZanesville City Hospital0.4 %0.0-0.5FZanesville City Hospital53.0 mg/dL High7.0-18.0[facility]8.4 mg/dLLow8.5-10.1FZanesville City Hospital112 mmol/VMkek55-866AvqcmbrbiOhio State East Hospital19.1 mmol/LLow21.0-32.0[facility]2.51 mg/dLHigh0.55-1.02 [facility]22Low>=60 mL/min/1.73m 2FZanesville City Hospital129 mg/qJLxxb40-079MruqyejcfOhio State East Hospital4.3 mmol/L 3.5-5.1FZanesville City Hospital142 mmol/R125-970QszvezbhfOhio State East Hospital0.2 mg/dL0.2-1.0[facility]5.9 g/dLLow 6.4-8.2FZanesville City HospitalPlatelet mean volume Auto (Bld) [Entitic vol]on 90-35-7824Muoayefu mean volume (Bld) [Entitic vol]Platelet mean volume [Entitic volume] in Blood by Automated count9.5-13.5FZanesville City HospitalPlatelets Auto (Bld) [#/Vol]on 98-29-7764Dkythvaxp (Bld) [#/Vol]Platelets [#/volume] in Blood by Automated -844XmcdcgiqxOhio State East Hospital RBC Auto (Bld) [#/Vol]on 48-21-8394OXD (Bld) [#/Vol]Erythrocytes [#/volume] in Blood by Automated countLow4.20-5.40[facility] Hospitalerum or plasma albumin/globulin mass ratioon 98-02-8833Pgdxcjg/Globulin [Mass ratio] Serum or plasma albumin/globulin mass ratioOhio State East Hospital Serum or plasma anion gap determinationon 30-17-5506Xjkzd gap [Moles/Vol]Serum or plasma anion gap determinationOhio State East HospitalBasophils Auto (Bld) [#/Vol]on 76-71-5107Kjkrzwnij (Bld) [#/Vol]Automated basophil count 0.0-0.1FZanesville City HospitalBasophils/100 WBC Auto (Bld)on 90-44-6442Zspqozfbi/100 WBC (Bld)Automated basophil %0.2-2.0[facility] HospitalEosinophils/100 WBC Auto (Bld)on 56-41-7155Msursonsivc/100 WBC (Bld)Automated eosinophil %Low0.9-7.0[facility] Erythrocyte distribution width Auto (RBC) [Ratio]on 78-26-3553Chfeieeqtqy distribution width (RBC) [Ratio]Erythrocyte distribution width [Ratio] by Automated count11.0-15.0[facility] HospitalEstimated glomerular filtration rate (GFR) non- Americanon 13-79-6165KYD/1.73 sq M.predicted among non-blacks MDRD (S/P/Bld) [Vol rate/Area]Estimated glomerular filtration rate (GFR) non- AmericanLow>=60 mL/min/1.73m 2FZanesville City HospitalGlobulin Calc (S) [Mass/Vol]on 58-76-6681Iuzcjwan (S) [Mass/Vol]Serum globulin measurement by calculation (mass/volume)[facility] HospitalHematocrit Auto (Bld) [Volume fraction]on 01-95-3296Gjbvjhgcnb (Bld) [Volume fraction]Hematocrit [Volume Fraction] of Blood by Automated count 36.0-48.0[facility] HospitalHemoglobin [Mass/volume] in Bloodon 19-62-5594Hvmckappps (Bld) [Mass/Vol]Hemoglobin [Mass/volume] in Blood12.0-16.0 [facility] HospitalINR in Platelet poor plasma by Coagulation assayon 39-06-2840KZD Coag (PPP) [Relative time]INR in Platelet poor plasma by Coagulation assayOhio State East HospitalComment on above:DESIRED INR:2.0-3.0 CONDITIONS NOT LISTED BELOW2.5-3.5 FOR PROSTHETIC HEART VALVE REPLACEMENT2.5-3.5 RECURRENT THROMBOSISLaboratory - Chemistry and Chemistry - challengeon 86-06-4046Pvblxhq [Mass/Vol]2.9 g/dLLow3.4-5.0[facility] HospitalALP [Catalytic activity/Vol]145 U/JIeth15-044PfysqmadwOhio State East HospitalALT [Catalytic activity/Vol]18 U/P89-01YfsmxhexcOhio State East HospitalAST [Catalytic activity/Vol]16 U/P63-26MzoyphorzOhio State East Hospital Bilirubin [Mass/Vol]0.3 mg/dL0.2-1.0[facility] HospitalCalcium [Mass/Vol]9.0 mg/dL8.5-10.1FZanesville City HospitalChloride [Moles/Vol] 108 mmol/HJasl45-402PplnfsbrmOhio State East HospitalCO2 [Moles/Vol]19.5 mmol/L Low21.0-32.0[facility] HospitalCreatinine [Mass/Vol]2.90 mg/dLHigh 0.55-1.02[facility] HospitalGFR/1.73 sq M.predicted MDRD (S/P/Bld) [Vol rate/Area]19 mL/min/{1.73_m2}Low>=60 mL/min/1.73m 2FZanesville City HospitalGlucose [Mass/Vol]154 mg/pZFttr91-320OwacoafdqOhio State East HospitalLactate [Moles/Vol]0.9 mmol/L0.4-2.0[facility] Magnesium [Mass/Vol]2.0 mg/dL1.8-2.4FZanesville City HospitalPotassium [Moles/Vol]4.6 mmol/L3.5-5.1FZanesville City HospitalProtein [Mass/Vol] 7.0 g/dL6.4-8.2FCleveland Clinic Fairview Hospitalodium [Moles/Vol]139 mmol/L 136-145[facility] HospitalTSH Qn2.614 m[IU]/L0.358-3.740[facility] HospitalUrea nitrogen [Mass/Vol]61.0 mg/dLHigh7.0-18.0[facility] HospitalUrea nitrogen/Creatinine [Mass ratio]21.0 mg/mgOhio State East HospitalLaboratory - Hematology and Cell countson 02-04-2025 Immature granulocytes/100 WBC (Bld)0.3 %0.0-0.5FZanesville City Hospital Laboratory - Microbiology and Antimicrobial susceptibilityon 02-04-2025 SARS-CoV-2 (COVID-19) RNA RADHA+probe Ql (Unsp spec)NegativeNEGATIVEOhio State East HospitalComment on above:This test has not been [...] nucleated erythrocytes in Blood by Automated counon 84-78-7710IPP corrected for nucl RBC Auto (Bld) [#/Vol]Leukocytes [#/volume] corrected for nucleated erythrocytes in Blood by Automated coun4.0-11.0[facility] HospitalLymphocytes Auto (Bld) [#/Vol]on 86-31-3930Vqdqesmfkcz (Bld) [#/Vol]Lymphocytes [#/volume] in Blood by Automated count1.2-3.8[facility] HospitalLymphocytes/100 WBC Auto (Bld)on 02-04-2025 Lymphocytes/100 WBC (Bld)Lymphocytes/100 leukocytes in Blood by Automated count 20.5-60.0[facility] HospitalH Auto (RBC) [Entitic mass]on 72-51-9634SSV (RBC) [Entitic mass]MCH [Entitic mass] by Automated count26.7-34.0 [facility] HospitalMCHC Auto (RBC) [Mass/Vol]on 35-29-7676AHLB (RBC) [Mass/Vol]MCHC [Mass/volume] by Automated count29.9-35.2FZanesville City HospitalMCV Auto (RBC) [Entitic vol]on 71-11-7687JKS (RBC) [Entitic vol] MCV [Entitic volume] by Automated count81.0-99.0[facility] HospitalMonocytes Auto (Bld) [#/Vol]on 77-73-1665Rpidaziby (Bld) [#/Vol]Automated blood monocyte count0.3-0.8[facility] HospitalMonocytes/100 WBC Auto (Bld)on 43-47-3751Xnxbosqst/100 WBC (Bld)Automated monocyte %1.7-12.0 [facility] HospitalNeutrophils Auto (Bld) [#/Vol]on 02-04-2025 Neutrophils (Bld) [#/Vol]Neutrophils [#/volume] in Blood by Automated countHigh 1.4-6.5FZanesville City HospitalNeutrophils/100 WBC Auto (Bld)on 80-30-3348Wytoiixboqz/100 WBC (Bld)Automated neutrophil %43.0-75.0[facility] HospitalNo Panel Informationon 12-21-4922Ydsryzk Influenza Type A AntigenNegativeOhio State East HospitalComment on above:Negative for Flu A protein antigen. Infection due to Flu Acannot be ruled out. Flu A antigen in thesample may bebelow the detection limit of the test.Bedside Influenza Type B AntigenNegativeOhio State East HospitalComment on above:Negative for Flu B protein antigen. Infection due to Flu Bcannot be ruled out. Flu B antigen in thesample may bebelow the detection limit of the test.NegativeOhio State East HospitalEosinophils # (Auto)0.1 10 3/uL0.0-0.7FZanesville City HospitalImmature Granulocyte # (Auto)0.03 10 3/uL0.00-0.03[facility] HospitalTroponin I High Wnexrhuqfcj69.5 pg/mL4.0-51.3FZanesville City HospitalComment on above:CUT-OFF POINTS HAVE BEEN ESTABLISHED [...] AND CLINICAL INFORMATION.Venous Blood Partial Pressure CO234.8 mm[Hg]Low40.0-52.0[facility] Venous Blood pH7.094Mqy3.330-7.430[facility]2.614 u[iU]/mL0.358-3.740[facility]10.5 pg/mL4.0-51.3FZanesville City Hospital2.0 mg/dL1.8-2.4FZanesville City Hospital0.9 mmol/L0.4-2.0[facility]34.8 mm[Hg]Low40.0-52.0[facility]7.780Cxt6.330-7.430[facility]0.1 10 3/uL0.0-0.7FZanesville City Hospital2.9 g/dLLow3.4-5.0[facility]145 U/FKghd84-742ZcrhcpducOhio State East Hospital18 U/L 14-59[facility]16 U/T62-00UwcttbvdlOhio State East Hospital0.03 10 3/uL0.00-0.03[facility]21.0[facility]0.3 %0.0-0.5FZanesville City Hospital61.0 mg/dL High7.0-18.0[facility]9.0 mg/dL8.5-10.1FZanesville City Hospital108 mmol/NCfim43-536QyccyrvxlOhio State East Hospital19.5 mmol/L Low21.0-32.0[facility]2.90 mg/dLHigh0.55-1.02[facility]19Low>=60 mL/min/1.73m 2FZanesville City Hospital 154 mg/uOCwdi22-712KbebtlaauOhio State East Hospital4.6 mmol/L3.5-5.1FZanesville City Hospital139 mmol/L733-875ZxludxmpsOhio State East Hospital0.3 mg/dL0.2-1.0[facility]7.0 g/dL6.4-8.2FZanesville City HospitalPlatelet mean volume Auto (Bld) [Entitic vol]on 65-32-3205Qlmmcbke mean volume (Bld) [Entitic vol]Platelet mean volume [Entitic volume] in Blood by Automated count9.5-13.5FZanesville City HospitalPlatelets Auto (Bld) [#/Vol]on 42-89-6108Fkidlgkrq (Bld) [#/Vol]Platelets [#/volume] in Blood by Automated simer657-022ZucgoixfcOhio State East HospitalProthrombin time (PT)on 09-38-0330UW Coag (PPP) [Time]Prothrombin time (PT)9.0-11.6FZanesville City HospitalRBC Auto (Bld) [#/Vol]on 71-70-7859QRF (Bld) [#/Vol]Erythrocytes [#/volume] in Blood by Automated count4.20-5.40[facility] Serum or plasma albumin/globulin mass ratioon 01-03-3352Sdqjgmp/Globulin [Mass ratio]Serum or plasma albumin/globulin mass ratioTrumbull Memorial Hospitalerum or plasma anion gap determinationon 91-20-8188Vztjw gap [Moles/Vol] Serum or plasma anion gap determinationOhio State East HospitalCarbon dioxide, total [Moles/volume] in Serum or PlasmaOrdered By: Elicia Rhodes on 72-46-0825WO2 [Moles/Vol]Carbon dioxide, total [Moles/volume] in Serum or Pwxaqv73.0-31.0[facility] HospitalChloride [Moles/volume] in Serum or PlasmaOrdered By: Elicia Rhodes on 67-43-9862Yubdrskg [Moles/Vol] Chloride [Moles/volume] in Serum or NwkownDixq53-881Ngvwnnkzn[address] [place], [place] [address]ECG 12 lead ECGon 46-69-8713VII 12 lead ECGCHILDR[facility] [place] [address] Electrocardiograph Report Signed Patient: Hailee Trivedi MR#: [id number] : 1940 Acct:[id number] Age/Sex: 84 / F ADM Date: 01/02/25 Loc: Room: Type: [facility] Attending Dr: Elicia Rhodes MD Ordering [...] in Lateral leads Confirmed by Reyes Echevarria ([id number]) on 01/02/2025 2:56:23 PM Referred By: Elicia Rhodes Electronically Signed By: Reyes Echevarria Transcribed By: ALLA Signed By Reyes Echevarria MD 01/02/[address] [place] [address] Physician GroupECG post procedureon 01-02-2025 ECG post procedureCH[facility] [place] [address] [place] [address] Electrocardiograph Report Signed Patient: Hailee Trivedi MR#: [id number] : 1940 Acct:[id number] Age/Sex: 84 / F ADM Date: 01/02/25 Loc: Room: Type: [facility] Attending Dr: Elicia Rhodes MD Ordering [...] replaced Atrial fibrillation Confirmed by Reyes Echevarria ([id number]) on 01/02/2025 2:54:48 PM Referred By: Elicia Rhodes Electronically Signed By: Reyes Echevarria Transcribed By: ALLA Signed By Reyes Echevarria MD 01/02/[address] [place] [address] Physician GroupElectrolyteson 09-03-9911Nmyrj gap [Moles/Vol]10.4 mmol/LNormal6.0-15.0[facility] Physician GroupComment on above:Result Comment: PERFORMED BY: [facility] [place] [address] PATHOLOGIST DIRECTOR OF PHOTOGRAPHY CARLOS A CARD M.D.Performed By: #### GLULS #### Point of Care testing ,Chloride [Moles/Vol]109 mmol/JHazw36-981Qkq [facility] Physician GroupComment on above:Performed By: #### GLULS #### Point of Care testing ,CO2 [Moles/Vol]23.8 mmol/RNwbokx18.0-31.0The [facility] Physician GroupComment on above:Performed By: #### GLULS #### Point of Care testing ,Potassium [Moles/Vol]4.2 mmol/LNormal3.5-5.1[facility] Comment on above:Performed By: #### GLULS #### Point of Care testing ,Sodium [Moles/Vol]139 mmol/MXjkifn990-071Noc [facility] Physician GroupComment on above:Performed By: #### GLULS #### Point of Care testing ,Potassium [Moles/volume] in Serum or PlasmaOrdered By: Elicia Rhodes on 20-20-6356Oxgqtakhf [Moles/Vol]Potassium [Moles/volume] in Serum or Plasma 3.5-5.1FCleveland Clinic Fairview Hospitalerum or plasma anion gap determination Ordered By: Elicia Rhodes on 05-70-3430Fgoot gap [Moles/Vol]Serum or plasma anion gap determination6.0-15.0[facility] Hospitalodium [Moles/volume] in Serum or PlasmaOrdered By: Elicia Rhodes on 01-02-2025 Sodium [Moles/Vol]Sodium [Moles/volume] in Serum or Orokng466-137ZdopmtfugOhio State East HospitalEstimated glomerular filtration rate (GFR) non- Americanon 37-35-0157DIY/1.73 sq M.predicted among non-blacks MDRD (S/P/Bld) [Vol rate/Area]Estimated glomerular filtration rate (GFR) non- Low>=60 mL/min/1.73m 2FZanesville City HospitalLaboratory - Chemistry and Chemistry - challengeon 14-64-7708Fynirir [Mass/Vol]3.6 g/dL3.4-5.0[facility] HospitalCalcium [Mass/Vol]9.0 mg/dL8.5-10.1FZanesville City HospitalChloride [Moles/Vol]106 mmol/R84-897ZjoiitphsOhio State East HospitalCO2 [Moles/Vol]26.6 mmol/L21.0-32.0[facility] Creatinine [Mass/Vol]2.63 mg/dLHigh0.55-1.02[facility] GFR/1.73 sq M.predicted MDRD (S/P/Bld) [Vol rate/Area]21 mL/min/{1.73_m2}Low>=60 mL/min/1.73m 2FZanesville City HospitalGlucose [Mass/Vol]148 mg/dLHigh 74-106[facility] HospitalPotassium [Moles/Vol]4.9 mmol/L3.5-5.1 [facility] Hospitalodium [Moles/Vol]139 mmol/N682-795IwjbaxtkrOhio State East HospitalUrea nitrogen [Mass/Vol]30.0 mg/dLHigh7.0-18.0[facility] HospitalUrea nitrogen/Creatinine [Mass ratio]11.4 mg/mgOhio State East HospitalNo Panel Informationon 25-29-1557Bqyqjktexz Level4.0 mg/dL2.6-4.7FZanesville City Hospital3.6 g/dL3.4-5.0[facility]11.4FZanesville City Hospital30.0 mg/dLHigh7.0-18.0 [facility]9.0 mg/dL8.5-10.1FZanesville City Hospital106 mmol/B24-786EbbarmksqOhio State East Hospital26.6 mmol/L21.0-32.0 [facility]2.63 mg/dLHigh0.55-1.02[facility]21Low>=60 mL/min/1.73m 2FZanesville City Hospital148 mg/dL Sjwn77-048UojekqgvwOhio State East Hospital4.9 mmol/L3.5-5.1FZanesville City Hospital139 mmol/Z590-427TbbdrkshnOhio State East Hospital4.0 mg/dL2.6-4.7 [facility] Hospitalerum or plasma anion gap determinationon 51-01-0433Dsbtk gap [Moles/Vol]Serum or plasma anion gap determinationOhio State East HospitalEstimated glomerular filtration rate (GFR) non- Americanon 39-28-5697HXV/1.73 sq M.predicted among non-blacks MDRD (S/P/Bld) [Vol rate/Area]Estimated glomerular filtration rate (GFR) non- Low>=60 mL/min/1.73m 2FZanesville City HospitalLaboratory - Chemistry and Chemistry - challengeon 26-91-4955Kicwurk [Mass/Vol]3.3 g/dLLow3.4-5.0 [facility] HospitalCalcium [Mass/Vol]8.5 mg/dL8.5-10.1FZanesville City HospitalChloride [Moles/Vol]103 mmol/U69-646RteowejukOhio State East HospitalCO2 [Moles/Vol]28.6 mmol/L21.0-32.0[facility] HospitalCreatinine [Mass/Vol]2.86 mg/dLHigh0.55-1.02[facility] HospitalGFR/1.73 sq M.predicted MDRD (S/P/Bld) [Vol rate/Area]19 mL/min/{1.73_m2} Low>=60 mL/min/1.73m 2FZanesville City HospitalGlucose [Mass/Vol]122 mg/uPFkbv90-864CtwlkhtyhOhio State East HospitalPotassium [Moles/Vol]4.2 mmol/L 3.5-5.1FCleveland Clinic Fairview Hospitalodium [Moles/Vol]140 mmol/B148-202 [facility] HospitalUrea nitrogen [Mass/Vol]36.0 mg/dLHigh7.0-18.0 [facility] HospitalUrea nitrogen/Creatinine [Mass ratio]12.6 mg/mg [facility] HospitalNo Panel Informationon 52-07-5360Ytqxgyaytf Level4.5 mg/dL2.6-4.7FZanesville City Hospital3.3 g/dLLow3.4-5.0 [facility]12.6FZanesville City Hospital36.0 mg/dL High7.0-18.0[facility]8.5 mg/dL8.5-10.1FZanesville City Hospital103 mmol/R26-621AwtijfpheOhio State East Hospital28.6 mmol/L 21.0-32.0[facility]2.86 mg/dLHigh0.55-1.02[facility]19Low>=60 mL/min/1.73m 2FZanesville City Hospital 122 mg/vNLefr95-274KdyihauyoOhio State East Hospital4.2 mmol/L3.5-5.1FZanesville City Hospital140 mmol/Q894-179QiziafbsuOhio State East Hospital4.5 mg/dL2.6-4.7FCleveland Clinic Fairview Hospitalerum or plasma anion gap determinationon 85-89-2237Ctuxv gap [Moles/Vol]Serum or plasma anion gap determinationOhio State East HospitalBasic Metabolic Panelon 12-22-2024 Anion gap [Moles/Vol]9.8 mmol/LNormal6.0-15.0[facility] Comment on above:Performed By: #### BMP ####[facility] [place] [address] USACalcium [Mass/Vol]7.5 mg/dLLow8.6-10.3The [facility] Physician GroupComment on above:Performed By: #### BMP ####[facility] [place] [address] USAChloride [Moles/Vol] 114 mmol/SPcjq59-935Coe [facility] Physician GroupComment on above:Performed By: #### BMP ####[facility] [address] [place] [address] USACO2 [Moles/Vol]20.7 mmol/LLow21.0-31.0The [facility] Physician GroupComment on above:Performed By: #### BMP ####[facility] [address] [place] [address] USACreatinine [Mass/Vol]1.87 mg/dLSignificant change up 0.60-1.20The [facility] Physician GroupComment on above:Performed By: #### BMP ####[facility] [place] [address] [place] Creatinine Clr Calc Mkzugtjd09.92NoECU Health Edgecombe Hospital Physician GroupComment on above:Result Comment: PERFORMED BY: [facility] [address] [place] [address] PATHOLOGIST DIRECTOR OF PHOTOGRAPHY CARLOS A CARD M.D.Performed By: #### BMP ####[address] [place] [address] USAEstimated GFR26.539 mL/MinNoECU Health Edgecombe Hospital Physician GroupComment on above:Performed By: #### BMP ####[address] [place] [address] USAGlucose [Mass/Vol]126 mg/nWKhrh10-437Fyl [facility] Physician GroupComment on above:Result Comment: Random Glucose Reference Range is dependent on time and content of last meal. Glucose of more than 200 mg/dL in a nonstressed, ambulatory subject supports the diagnosis of Diabetes Mellitus. ADA recommended reference rangePerformed By: #### BMP ####[address] [address] USAPotassium [Moles/Vol]3.5 mmol/LNormal3.5-5.1The [facility] Physician GroupComment on above:Performed By: #### BMP ####[address] [address] USASodium [Moles/Vol]141 mmol/LJovype849-355Now [facility] Physician GroupComment on above:Performed By: #### BMP ####[address] [address] USAUrea nitrogen [Mass/Vol]25 mg/dLNormal7-25The [facility] Physician GroupComment on above:Performed By: #### BMP ####[address] [address] USACalcium [Mass/volume] in Serum or PlasmaOrdered By: Alivia Arana on 03-73-2257Gjmzhlc [Mass/Vol] Calcium [Mass/volume] in Serum or PlasmaLow8.6-10.3FZanesville City HospitalCarbon dioxide, total [Moles/volume] in Serum or PlasmaOrdered By: Alivia Arana on 79-66-2985HQ7 [Moles/Vol]Carbon dioxide, total [Moles/volume] in Serum or AxhscdOui01.0-31.0[facility] HospitalChloride [Moles/volume] in Serum or PlasmaOrdered By: Alivia Arana on 41-46-3114Ikipuhjo [Moles/Vol] Chloride [Moles/volume] in Serum or RyuobeHejz68-215GzhjhsgdhOhio State East HospitalCreatinine [Mass/volume] in Serum or PlasmaOrdered By: Alivia Arana on 45-20-4355Utlfhnesvr [Mass/Vol]Creatinine [Mass/volume] in Serum or Plasma Invalid Interpretation Code0.60-1.20[facility] HospitalComment on above:Delta: 2.42 on 12/21/24-0500Glucose Glucometer (BldC) [Mass/Vol]Ordered By: Jonathan Valenzuela on 97-53-0027Ouydoot [Mass/Vol]Capillary blood glucose measurement by glucometer (mass/volume)[facility] HospitalComment on above:Random Glucose Reference Range is dependent on time and content of last meal. Glucose of more than 200 mg/dL in a nonstressed, ambulatory subject supports the diagnosis of Diabetes Mellitus.Glucose Poct Glucometerson 09-27-7045Doxnvyk [Mass/Vol]180 mg/dLNoECU Health Edgecombe Hospital Physician GroupComment on above:Result Comment: Random Glucose Reference Range is dependent on time and content of last meal. Glucose of more than 200 mg/dL in a nonstressed, ambulatory subject supports the diagnosis of Diabetes Mellitus. PERFORMED BY: [facility] [address] [place] [address] PATHOLOGIST DIRECTOR OF PHOTOGRAPHY CARLOS A CARD M.D.Performed By: #### GLULS #### Point of Care testing ,Glucose [Mass/Vol]155 mg/dLNoECU Health Edgecombe Hospital Physician GroupComment on above: Result Comment: Random Glucose Reference Range is dependent on time and content of last meal. Glucose of more than 200 mg/dL in a nonstressed, ambulatory subject supports the diagnosis of Diabetes Mellitus. PERFORMED BY: [facility] [place] [address] PATHOLOGIST DIRECTOR OF PHOTOGRAPHY CARLOS A CARD M.D.Performed By: #### GLULS ####Point of Care testing, Glucose [Mass/volume] in Serum or PlasmaOrdered By: Alivia Arana on 12-22-2024 Glucose [Mass/Vol]Glucose [Mass/volume] in Serum or DcizpfHogx08-282XhpoxoqdqOhio State East HospitalComment on above:ADA recommended reference rangeRandom Glucose Reference Range is dependent on time and content of last meal. Glucose of more than 200 mg/dL in a nonstressed, ambulatory subject supports the diagnosisof Diabetes Mellitus.No Panel InformationOrdered By: Alivia Arana on 29-44-0780Rrpgkiruj GFR (CKD-EPI)26.539 mL/MinOhio State East Hospital Pharmacy Creatinine Clearance (Chem25.92[facility]26.539 mL/[facility]25.92[facility] Potassium [Moles/volume] in Serum or PlasmaOrdered By: Alivia Arana on 12-22-2024 Potassium [Moles/Vol]Potassium [Moles/volume] in Serum or Plasma3.5-5.1FCleveland Clinic Fairview Hospitalerum or plasma anion gap determinationOrdered By: Alivia Arana on 08-15-4496Nkygg gap [Moles/Vol]Serum or plasma anion gap determination 6.0-15.0[facility] Hospitalodium [Moles/volume] in Serum or PlasmaOrdered By: Alivia Arana on 41-86-7574Jsvpwp [Moles/Vol]Sodium [Moles/volume] in Serum or Mzrzdy794-619HchnznyzaOhio State East HospitalUrea nitrogen [Mass/volume] in Serum or PlasmaOrdered By: Alivia Arana on 12-22-2024 Urea nitrogen [Mass/Vol]Urea nitrogen [Mass/volume] in Serum or Plasma7-25 [facility] HospitalBasic Metabolic Panelon [id number] gap [Moles/Vol]11.1 mmol/LNormal6.0-15.0[facility] Physician GroupComment on above:Performed By: #### LACTIC #### [place] [address] USACalcium [Mass/Vol]8.6 mg/dLNormal8.6-10.3[facility] Physician GroupComment on above:Performed By: #### LACTIC #### [place] [address] USAChloride [Moles/Vol]109 mmol/MImut74-405Dnf Formerly [facility] Physician GroupComment on above:Performed By: #### LACTIC #### [place] [address] USACO2 [Moles/Vol]23.1 mmol/EUhyinv35.0-31.0The [facility] Physician GroupComment on above:Performed By: #### LACTIC #### [place] [address] USACreatinine [Mass/Vol]2.42 mg/dLHigh0.60-1.20The [facility] Physician GroupComment on above:Performed By: #### LACTIC #### [place] [address] USACreatinine Clr Calc Nmhzikgg51.03NoECU Health Edgecombe Hospital Physician GroupComment on above:Result Comment: PERFORMED BY: [place] [address] PATHOLOGIST DIRECTOR OF PHOTOGRAPHY CARLOS A CARD M.D.Performed By: #### LACTIC #### [place] [address] USAEstimated GFR19.477 mL/MinNoECU Health Edgecombe Hospital Physician GroupComment on above:Performed By: #### LACTIC #### [place] [address] USAGlucose [Mass/Vol]147 mg/oQDmtd27-454Kng [facility] Physician GroupComment on above:Result Comment: Random Glucose Reference Range is dependent on time and content of last meal. Glucose of more than 200 mg/dL in a nonstressed, ambulatory subject supports the diagnosis of Diabetes Mellitus. ADA recommended reference rangePerformed By: #### LACTIC #### [address] [place] [address] USAPotassium [Moles/Vol]4.2 mmol/LNormal3.5-5.1The [facility] Physician GroupComment on above:Performed By: #### LACTIC #### [place] [address] USASodium [Moles/Vol]139 mmol/ZQwvphs171-720Pcu [facility] Physician GroupComment on above:Performed By: #### LACTIC #### [place] [address] USAUrea nitrogen [Mass/Vol]28 mg/dLHigh7-25The [facility] Physician GroupComment on above:Performed By: #### LACTIC #### [place] [address] USAGlucose Poct Glucometerson 34-76-7555Irtpedg [Mass/Vol]116 mg/dLNoECU Health [facility] Hospital Physician [facility] HospitalComment on above:Result Comment: Random Glucose Reference Range is dependent on time and content of last meal. Glucose of more than 200 mg/dL in a nonstressed, ambulatory subject supports the diagnosis of Diabetes Mellitus. PERFORMED BY: [place] [address] PATHOLOGIST DIRECTOR OF PHOTOGRAPHY CARLOS A CARD M.D.Performed By: #### GLULS ####Point of Care testing, Glucose [Mass/Vol]146 mg/dLHCA Florida South Shore Hospital Physician [facility] County HospitalComment on above: Result Comment: Random Glucose Reference Range is dependent on time and content of last meal. Glucose of more than 200 mg/dL in a nonstressed, ambulatory subject supports the diagnosis of Diabetes Mellitus. PERFORMED BY: [place] [address] PATHOLOGIST DIRECTOR OF PHOTOGRAPHY CARLOS A CARD M.D.Performed By: #### GLULS ####Point of Care testing, Glucose [Mass/Vol]165 mg/dLHCA Florida South Shore Hospital Physician GroupComment on above: Result Comment: Random Glucose Reference Range is dependent on time and content of last meal. Glucose of more than 200 mg/dL in a nonstressed, ambulatory subject supports the diagnosis of Diabetes Mellitus. PERFORMED BY: [facility] [address] [place] [address] PATHOLOGIST DIRECTOR OF PHOTOGRAPHY CARLOS A CARD M.D.Performed By: #### GLULS ####Point of Care testing, Kbcmemg5Lic9: Cleaned [facility] Physician GroupComment on above: Result Comment: PERFORMED BY: [facility] [address] [place] [address] PATHOLOGIST DIRECTOR OF PHOTOGRAPHY CARLOS A CARD M.D.Performed By: #### GLULS ####Point of Care testing, Glucose [Mass/Vol]155 mg/dLNoECU Health [facility] Hospital Physician GroupComment on above: Result Comment: Random Glucose Reference Range is dependent on time and content of last meal. Glucose of more than 200 mg/dL in a nonstressed, ambulatory subject supports the diagnosis of Diabetes Mellitus.Performed By: #### GLULS ####Point of Care testing,No Panel InformationOrdered By: Jonathan Valenzuela on 28-89-8040Uakdben Glucose CommentGlu2: cleaned [facility] HospitalGlu2: cleaned [facility] HospitalBasic Metabolic Panelon 94-30-6434Alqyl gap [Moles/Vol] 10.7 mmol/LNormal6.0-15.0The [facility] Physician GroupComment on above:Performed By: #### BMP, CBC ####[address] [address] USACalcium [Mass/Vol]8.7 mg/dLNormal8.6-10.3The [facility] Physician GroupComment on above:Performed By: #### BMP, CBC ####[address] [address] USAChloride [Moles/Vol]111 mmol/LHigh 98-107The [facility] Physician GroupComment on above:Performed By: #### BMP, CBC ####[address] [address] USACO2 [Moles/Vol]21.9 mmol/ROvvlrs88.0-31.0The [facility] Physician GroupComment on above:Performed By: #### BMP, CBC ####[place] [id number] USACreatinine [Mass/Vol]2.21 mg/dLHigh0.60-1.20The [facility] Physician GroupComment on above:Performed By: #### BMP, CBC ####[place] [id number] [place] Creatinine Clr Calc Uiatwahp95.99NormalThWest Valley Medical Center Physician GroupComment on above:Result Comment: PERFORMED BY: [facility] [address] [place] [id number] PATHOLOGIST DIRECTOR OF PHOTOGRAPHY CARLOS A CARD M.D.Performed By: #### BMP, CBC ####[place] [id number] USAEstimated GFR21.719 mL/Min NormalThe [facility]ly [facility] Physician GroupComment on above:Performed By: #### BMP, CBC ####[place] [id number] USAGlucose [Mass/Vol]131 mg/yKSurx87-701Kxt [facility] Physician GroupComment on above: Result Comment: Random Glucose Reference Range is dependent on time and content of last meal. Glucose of more than 200 mg/dL in a nonstressed, ambulatory subject supports the diagnosis of Diabetes Mellitus. ADA recommended reference rangePerformed By: #### BMP, CBC ####[place] [id number] USAPotassium [Moles/Vol] 4.6 mmol/LNormal3.5-5.1The [facility] Physician GroupComment on above:Performed By: #### BMP, CBC ####[place] [id number] USASodium [Moles/Vol]139 mmol/TAmcjul451-266Uyy [facility] Physician GroupComment on above:Performed By: #### BMP, CBC ####[place] [id number] USAUrea nitrogen [Mass/Vol]24 mg/dL Normal7-25The [facility] Physician GroupComment on above:Performed By: #### BMP, CBC ####[address] [address] [place] Basophils Auto (Bld) [#/Vol]Ordered By: Alivia Arana on 83-78-0901Eegxkxemt (Bld) [#/Vol]Automated basophil count0.0-0.2FZanesville City Hospital Basophils/100 WBC Auto (Bld)Ordered By: Alivia Arana on 77-32-9170Tgbnbpisw/100 WBC (Bld)Automated basophil %.[facility] HospitalComplete Blood Count Auto Diffon 94-12-6928Nazoriusq (Bld) [#/Vol]0.1 10*3/uLNormal0.0-0.2The [facility] Physician GroupComment on above:Result Comment: PERFORMED BY: [facility] [address] [place] [address] PATHOLOGIST DIRECTOR OF PHOTOGRAPHY CARLOS A CARD M.D.Performed By: #### BMP, CBC ####[address] [address] USABasophils/100 WBC (Bld)1.0 % Normal.The [facility] Physician GroupComment on above:Performed By: #### BMP, CBC ####[address] [address] [place] Eosinophils (Bld) [#/Vol]0.1 10*3/uLNormal0.0-0.45The [facility] Comment on above:Performed By: #### BMP, CBC ####[place] [id number] USAEosinophils/100 WBC (Bld)0.7 %Normal. [facility] Physician GroupComment on above:Performed By: #### BMP, CBC ####[place] [id number] [place] Erythrocyte distribution width (RBC) [Ratio]13.3 %Iwvxds74.9-15.3The [facility] Physician GroupComment on above:Performed By: #### BMP, CBC ####[place] [address] USAHematocrit (Bld) [Volume fraction]37.0 %Tabuod88.0-46.4The [facility] Physician GroupComment on above:Performed By: #### BMP, CBC ####[place] [address] USAHemoglobin (Bld) [Mass/Vol]12.3 g/sUFsqgdw52.8-15.4 The [facility] Physician GroupComment on above:Performed By: #### BMP, CBC ####[place] [address] [place] Lymphocytes (Bld) [#/Vol]2.0 10*3/uLNormal1.00-4.8The [facility] Comment on above:Performed By: #### BMP, CBC ####[place] [address] USALymphocytes/100 WBC (Bld)26.9 %Normal. The [facility] Physician GroupComment on above:Performed By: #### BMP, CBC ####[place] [address] USAMCH (RBC) [Entitic mass]31.7 isVcowzp40.7-34.3The [facility] Physician GroupComment on above:Performed By: #### BMP, CBC ####[place] [address] USAMCV (RBC) [Entitic vol]95.2 lFBrzbfl48-530Oyr [facility] Physician GroupComment on above:Performed By: #### BMP, CBC ####[place] [address] USAMean Corpuscular HGB Conc33.3 g/lKVajrnv54.0-35.0The [facility] Physician GroupComment on above:Performed By: #### BMP, CBC ####[place] [address] USAMonocytes (Bld) [#/Vol]0.5 10*3/uLNormal 0.0-0.8The [facility] Physician GroupComment on above:Performed By: #### BMP, CBC ####[place] [address] [place] Monocytes/100 WBC (Bld)7.2 %Normal.The [facility] Physician GroupComment on above:Performed By: #### BMP, CBC ####[place] [address] USANeutrophils (Bld) [#/Vol]4.7 10*3/uLNormal1.8-7.7The [facility] Physician GroupComment on above:Performed By: #### BMP, CBC ####[place] [address] [place] Neutrophils/100 WBC (Bld)64.2 %Normal.The [facility] Physician GroupComment on above:Performed By: #### BMP, CBC ####[place] [address] USANRBC%0.1 /100{WBC}Normal0-0.5The [facility] Physician GroupComment on above:Performed By: #### BMP, CBC ####[place] [address] USAPlatelet mean volume (Bld) [Entitic vol]9.4 fLNormal6.3-10.7The [facility] Physician GroupComment on above: Performed By: #### BMP, CBC ####[place] [address] USAPlatelets (Bld) [#/Vol]217 10*3/sRAjrphg977-240Gzk [facility] Physician GroupComment on above:Performed By: #### BMP, CBC ####[place] [address] USARBC (Bld) [#/Vol]3.89 10*6/uLNormal3.60-5.00The [facility] Physician GroupComment on above:Performed By: #### BMP, CBC ####[place] [address] USAWBC (Bld) [#/Vol]7.4 10*3/uLNormal3.8-11.6The [facility] Physician GroupComment on above:Performed By: #### BMP, CBC ####[facility] [address] [place] [address] [place] Eosinophils Auto (Bld) [#/Vol]Ordered By: Alivia Arana on 14-68-3439Hodymlnklbt (Bld) [#/Vol]Automated eosinophil count0.0-0.45[facility] Eosinophils/100 WBC Auto (Bld)Ordered By: Alivia Arana on 12-20-2024 Eosinophils/100 WBC (Bld)Automated eosinophil %.[facility] HospitalErythrocyte distribution width Auto (RBC) [Ratio]Ordered By: Alivia Arana on 36-57-3826Qzyhspfurfg distribution width (RBC) [Ratio]Erythrocyte distribution width [Ratio] by Automated count11.9-15.3FZanesville City HospitalGlucose Poct Glucometerson 06-33-9496Signiyq9Nro8: Cleaned MeterNoECU Health Edgecombe Hospital Physician [facility] County HospitalComment on above:Result Comment: PERFORMED BY: [facility] [address] [place] [address] PATHOLOGIST DIRECTOR OF PHOTOGRAPHY CARLOS A CARD M.D.Performed By: #### GLULS ####Point of Care testing, Glucose [Mass/Vol]141 mg/dLHCA Florida South Shore Hospital Physician [facility] County HospitalComment on above: Result Comment: Random Glucose Reference Range is dependent on time and content of last meal. Glucose of more than 200 mg/dL in a nonstressed, ambulatory subject supports the diagnosis of Diabetes Mellitus.Performed By: #### GLULS ####Point of Care testing,Glucose [Mass/Vol]156 mg/dLHCA Florida South Shore Hospital Physician [facility] County HospitalComment on above:Result Comment: Random Glucose Reference Range is dependent on time and content of last meal. Glucose of more than 200 mg/dL in a nonstressed, ambulatory subject supports the diagnosis of Diabetes Mellitus. PERFORMED BY: [facility] [address] [place] [id number] PATHOLOGIST DIRECTOR OF PHOTOGRAPHY CARLOS A CARD M.D.Performed By: #### GLULS ####Point of Care testing, Glucose [Mass/Vol]158 mg/dLNoECU Health [facility] Hospital Physician GroupComment on above: Result Comment: Random Glucose Reference Range is dependent on time and content of last meal. Glucose of more than 200 mg/dL in a nonstressed, ambulatory subject supports the diagnosis of Diabetes Mellitus. PERFORMED BY: [address] [place] [address] PATHOLOGIST DIRECTOR OF PHOTOGRAPHY CARLOS A CARD M.D.Performed By: #### GLULS ####Point of Care testing, Glucose [Mass/Vol]133 mg/dLNoECU Health [facility] Hospital Physician GroupComment on above: Result Comment: Random Glucose Reference Range is dependent on time and content of last meal. Glucose of more than 200 mg/dL in a nonstressed, ambulatory subject supports the diagnosis of Diabetes Mellitus. PERFORMED BY: [facility] [address] [place] [address] PATHOLOGIST DIRECTOR OF PHOTOGRAPHY CARLOS A CARD M.D.Performed By: #### GLULS ####Point of Care testing, Hematocrit Auto (Bld) [Volume fraction]Ordered By: Alivia Arana on 12-20-2024 Hematocrit (Bld) [Volume fraction]Hematocrit [Volume Fraction] of Blood by Automated count34.0-46.4FZanesville City HospitalHemoglobin [Mass/volume] in BloodOrdered By: Alivia Arana on 07-64-1657Ptraamzury (Bld) [Mass/Vol]Hemoglobin [Mass/volume] in Blood11.8-15.4FZanesville City HospitalLeukocytes [#/volume] corrected for nucleated erythrocytes in Blood by Automated counOrdered By: Alivia Arana on 58-28-6518DEV corrected for nucl RBC Auto (Bld) [#/Vol]Leukocytes [#/volume] corrected for nucleated erythrocytes in Blood by Automated coun3.8-11.6FZanesville City HospitalLymphocytes Auto (Bld) [#/Vol]Ordered By: Alivia Arana on 12-47-6669Bjfiwdtljdn (Bld) [#/Vol] Lymphocytes [#/volume] in Blood by Automated count1.00-4.8[facility] HospitalLymphocytes/100 WBC Auto (Bld)Ordered By: Alivia Arana on 20-45-7002Zsktldxgfim/100 WBC (Bld)Lymphocytes/100 leukocytes in Blood by Automated count.[facility] HospitalMCH Auto (RBC) [Entitic mass] Ordered By: Alivia Arana on 59-01-5941MAL (RBC) [Entitic mass]MCH [Entitic mass] by Automated count24.7-34.3FZanesville City HospitalMCHC Auto (RBC) [Mass/Vol]Ordered By: Alivia Arana on 11-15-6960DHNM (RBC) [Mass/Vol]MCHC [Mass/volume] by Automated count32.0-35.0[facility] HospitalMCV Auto (RBC) [Entitic vol]Ordered By: Alivia Arana on 91-10-0819AYK (RBC) [Entitic vol]MCV [Entitic volume] by Automated mrpoe34-251WavbuiaqqOhio State East HospitalMonocytes Auto (Bld) [#/Vol]Ordered By: Alivia Arana on 02-87-6872Mxmofrpoi (Bld) [#/Vol]Automated blood monocyte count0.0-0.8[facility] HospitalMonocytes/100 WBC Auto (Bld)Ordered By: Alivia Arana on 12-20-2024 Monocytes/100 WBC (Bld)Automated monocyte %.[facility] Neutrophils Auto (Bld) [#/Vol]Ordered By: Alivia Arana on 77-94-1270Djlrxifvgkp (Bld) [#/Vol]Neutrophils [#/volume] in Blood by Automated count1.8-7.7FZanesville City HospitalNeutrophils/100 WBC Auto (Bld)Ordered By: Alivia Arana on 92-32-4000Yspacwiiaie/100 WBC (Bld)Automated neutrophil %.[facility] HospitalNucleated erythrocytes [Presence] in Blood by Automated count Ordered By: Alivia Arana on 06-42-0333Erlzfneku RBC Auto Ql (Bld)Nucleated erythrocytes [Presence] in Blood by Automated count0-0.5FZanesville City HospitalPlatelet mean volume Auto (Bld) [Entitic vol]Ordered By: Alivia Arana on 35-50-7988Otghgtin mean volume (Bld) [Entitic vol]Platelet mean volume [Entitic volume] in Blood by Automated count6.3-10.7FZanesville City HospitalPlatelets Auto (Bld) [#/Vol]Ordered By: Alivia Arana on 84-27-1797Fhgqzpeoh (Bld) [#/Vol]Platelets [#/volume] in Blood by Automated -478RszpbhktmOhio State East HospitalRBC Auto (Bld) [#/Vol]Ordered By: Alivia Arana on 43-30-8275BXT (Bld) [#/Vol]Erythrocytes [#/volume] in Blood by Automated count 3.60-5.00[facility] HospitalWBC Auto (Bld) [#/Vol]Ordered By: Alivia Arana on 91-42-8292MDA (Bld) [#/Vol]Leukocytes [#/volume] in Blood by Automated count3.8-11.6FZanesville City HospitalAlanine aminotransferase [Enzymatic activity/volume] in Serum or PlasmaOrdered By: Louis Mcadams on 58-61-0323DVW [Catalytic activity/Vol]Alanine aminotransferase [Enzymatic activity/volume] in Serum or Plasma7-52[facility] HospitalAlbumin [Mass/volume] in Serum or Plasma by Bromocresol green (BCG) dye binding metho Ordered By: Louis Mcadams on 35-90-5406Agbzuff BCG dye [Mass/Vol]Albumin [Mass/volume] in Serum or Plasma by Bromocresol green (BCG) dye binding metho 3.5-5.7FZanesville City HospitalAlkaline phosphatase [Enzymatic activity/volume] in Serum or PlasmaOrdered By: Louis Mcadams on 72-96-6173QIZ [Catalytic activity/Vol]Alkaline phosphatase [Enzymatic activity/volume] in Serum or Lskgtj03-185HbjqrpiepOhio State East HospitalAspartate aminotransferase [Enzymatic activity/volume] in Serum or PlasmaOrdered By: Louis Mcadams on 23-94-8337DTE [Catalytic activity/Vol]Aspartate aminotransferase [Enzymatic activity/volume] in Serum or BgfomhFef19-76NqpclrvnvOhio State East HospitalB- Type Natriuretic Peptideon 98-32-2795Tumykmdeaip peptide B (Bld) [Mass/Vol]376.0 pg/mLHigh5-100The [facility] Physician GroupComment on above:Result Comment: PERFORMED BY: [facility] [address] [place] [id number] PATHOLOGIST DIRECTOR OF PHOTOGRAPHY CARLOS A CARD M.D.Performed By: #### BNP, CMP, CK, LIPASE, PT, HS TROP, CBC ####[facility] [address] [place] [id number] RUST Basophils Auto (Bld) [#/Vol]Ordered By: Louis Mcadams on 74-14-6740Gsnpednrb (Bld) [#/Vol]Automated basophil count0.0-0.2FZanesville City Hospital Basophils/100 WBC Auto (Bld)Ordered By: Louis Mcadams on 60-06-4328Lsmflfmvs/100 WBC (Bld)Automated basophil %.[facility] HospitalBilirubin.total [Mass/volume] in Serum or PlasmaOrdered By: Louis Mcadams on 43-55-6163Kkgbgmego [Mass/Vol]Bilirubin.total [Mass/volume] in Serum or Plasma0.3-1.0[facility] HospitalCOVID Cepheid NegativeOrdered By: Louis Mcadams on 03-96-9615QZWQ-CoV-2 (COVID-19) Ab IA QlCOVID CepheidNegativeOhio State East HospitalComment on above:This is a duplicate Cepheid Xpert Xpress CoV- 2/Flu/RSV Plus RNA by RT-PCR result to be used for statistical tracking purpose only.SARS-CoV-2 (COVID-19) RNA RADHA+probe Ql (Unsp spec)COVID CepheidNegative [facility] HospitalCOVID-19 / Flu A/B / RSV PCRon [...] or Cepheid Disclaimer revoked sooner. PERFORMED BY: [facility] [address] [place] [address] PATHOLOGIST DIRECTOR OF PHOTOGRAPHY CARLOS A CARD M.D.[facility] Physician GroupComment on above: Performed By: #### LACTIC #### [facility] [address] [place] [address] USACalcium [Mass/volume] in Serum or PlasmaOrdered By: Louis Mcadams on 38-03-9806Mevozog [Mass/Vol]Calcium [Mass/volume] in Serum or Plasma Low8.6-10.3FZanesville City HospitalCarbon dioxide, total [Moles/volume] in Serum or PlasmaOrdered By: Louis Mcadams on 45-10-2992PN2 [Moles/Vol]Carbon dioxide, total [Moles/volume] in Serum or Zlkkcv99.0-31.0[facility] HospitalCepheid COVID PCR Negativeon 77-70-4757LKUD-CoV-2 (COVID-19) RNA RADHA+probe Ql (Unsp spec)NegativeNormalNegativeThe [facility] Comment on above:Result Comment: This is a duplicate CepBoontyid Xpert Xpress CoV- 2/Flu/RSV Plus RNA by RT-PCR result to be used for statistical tracking purpose only. PERFORMED BY: [place] [address] PATHOLOGIST DIRECTOR OF PHOTOGRAPHY CARLOS A CARD M.D.Performed By: #### LACTIC #### [place] [address] USAChloride [Moles/volume] in Serum or PlasmaOrdered By: Louis Mcadams on 48-12-9883Ewghnmql [Moles/Vol]Chloride [Moles/volume] in Serum or OyjizyDmam89-353YehedheunOhio State East HospitalComplete Blood Count Auto Diff on 98-37-1478Cprcufoyw (Bld) [#/Vol]0.1 10*3/uLNormal0.0-0.2The [facility] Physician GroupComment on above:Result Comment: PERFORMED BY: [place] [address] PATHOLOGIST DIRECTOR OF PHOTOGRAPHY CARLOS A CARD M.D.Performed By: #### BNP, CMP, CK, LIPASE, PT, HS TROP, CBC ####[place] [address] [place] Basophils/100 WBC (Bld)1.3 %Normal.[facility] Physician GroupComment on above:Performed By: #### BNP, CMP, CK, LIPASE, PT, HS TROP, CBC ####[place] [address] USAEosinophils (Bld) [#/Vol]0.1 10*3/uLNormal0.0-0.45The [facility] Physician GroupComment on above: Performed By: #### BNP, CMP, CK, LIPASE, PT, HS TROP, CBC ####[place] [address] USAEosinophils/100 WBC (Bld)0.9 %Normal.[facility] Physician GroupComment on above:Performed By: #### BNP, CMP, CK, LIPASE, PT, HS TROP, CBC ####[place] [address] USAErythrocyte distribution width (RBC) [Ratio]12.8 % Ovvesy06.9-15.3The [facility] Physician GroupComment on above:Performed By: #### BNP, CMP, CK, LIPASE, PT, HS TROP, CBC ####[place] [address] USAHematocrit (Bld) [Volume fraction]35.6 %Normal 34.0-46.4The [facility] Physician GroupComment on above:Performed By: #### BNP, CMP, CK, LIPASE, PT, HS TROP, CBC ####[place] [address] USAHemoglobin (Bld) [Mass/Vol]11.7 g/dLLow11.8-15.4The [facility] Physician GroupComment on above:Performed By: #### BNP, CMP, CK, LIPASE, PT, HS TROP, CBC ####[place] [address] USALymphocytes (Bld) [#/Vol]2.3 10*3/uLNormal1.00-4.8 The [facility] Physician GroupComment on above:Performed By: #### BNP, CMP, CK, LIPASE, PT, HS TROP, CBC ####[place] [address] USALymphocytes/100 WBC (Bld)27.1 %Normal.[facility] Physician GroupComment on above:Performed By: #### BNP, CMP, CK, LIPASE, PT, HS TROP, CBC ####[address] (RBC) [Entitic mass]31.2 cvMmcskm86.7-34.3The [facility] Comment on above:Performed By: #### BNP, CMP, CK, LIPASE, PT, HS TROP, CBC ####[address] (RBC) [Entitic vol]94.6 tTWscrvi55-794Rgt [facility] Physician GroupComment on above:Performed By: #### BNP, CMP, CK, LIPASE, PT, HS TROP, CBC ####[place] [address] USAMean Corpuscular HGB Conc33.0 g/yOUuvxee36.0-35.0The [facility] Physician GroupComment on above: Performed By: #### BNP, CMP, CK, LIPASE, PT, HS TROP, CBC ####[place] [address] USAMonocytes (Bld) [#/Vol]0.6 10*3/uLNormal0.0-0.8The [facility] Physician GroupComment on above:Performed By: #### BNP, CMP, CK, LIPASE, PT, HS TROP, CBC ####[place] [address] USAMonocytes/100 WBC (Bld)21.81 %High 0.00-20.00The [facility] Physician GroupComment on above:Result Comment: For adults in ED, MDW > 20.0 may be associated with a higher risk of sepsis during the first 12 hrs of hospital admissionPerformed By: #### BNP, CMP, CK, LIPASE, PT, HS TROP, CBC ####[place] [address] USAMonocytes/100 WBC (Bld)7.0 %Normal.[facility] Physician GroupComment on above:Performed By: #### BNP, CMP, CK, LIPASE, PT, HS TROP, CBC ####[place] [address] USANeutrophils (Bld) [#/Vol]5.3 10*3/uLNormal1.8-7.7The [facility] Physician GroupComment on above:Performed By: #### BNP, CMP, CK, LIPASE, PT, HS TROP, CBC ####[place] [id number] USANeutrophils/100 WBC (Bld)63.7 %Normal.[facility] Physician GroupComment on above:Performed By: #### BNP, CMP, CK, LIPASE, PT, HS TROP, CBC ####[place] [address] USANRBC%0.2 /100{WBC}Normal0-0.5The [facility] Physician GroupComment on above: Performed By: #### BNP, CMP, CK, LIPASE, PT, HS TROP, CBC ####[place] [address] USAPlatelet mean volume (Bld) [Entitic vol]9.3 fLNormal6.3-10.7The [facility] Physician GroupComment on above: Performed By: #### BNP, CMP, CK, LIPASE, PT, HS TROP, CBC ####[place] [address] USAPlatelets (Bld) [#/Vol]210 10*3/xYMkxosn311-729Aht [facility] Physician GroupComment on above:Performed By: #### BNP, CMP, CK, LIPASE, PT, HS TROP, CBC ####[place] [id number] USARBC (Bld) [#/Vol]3.76 10*6/uLNormal 3.60-5.00The [facility] Physician GroupComment on above:Performed By: #### BNP, CMP, CK, LIPASE, PT, HS TROP, CBC ####[place] [address] USAWBC (Bld) [#/Vol]8.4 10*3/uLNormal3.8-11.6The [facility] Physician GroupComment on above:Performed By: #### BNP, CMP, CK, LIPASE, PT, HS TROP, CBC ####[place] [address] USAComprehensive Metabolic Panelon 26-44-2637Fhzsyre [Mass/Vol]3.7 g/dLNormal3.5-5.7The [facility] Physician GroupComment on above: Performed By: #### BNP, CMP, CK, LIPASE, PT, HS TROP, CBC ####[place] [address] USAAlbumin/Globulin [Mass ratio] 1.3 {ratio}NormalThe Formerly [facility] Physician GroupComment on above:Performed By: #### BNP, CMP, CK, LIPASE, PT, HS TROP, CBC ####[place] [address] USAALP [Catalytic activity/Vol]88 U/L Dkwxmv79-601Lhz [facility] Physician GroupComment on above:Performed By: #### BNP, CMP, CK, LIPASE, PT, HS TROP, CBC ####[place] [address] USAALT [Catalytic activity/Vol]7 U/LNormal7-52The [facility] Physician GroupComment on above:Performed By: #### BNP, CMP, CK, LIPASE, PT, HS TROP, CBC ####[place] [address] USAAnion gap [Moles/Vol]10.1 mmol/LNormal6.0-15.0The [facility] Physician GroupComment on above:Performed By: #### BNP, CMP, CK, LIPASE, PT, HS TROP, CBC ####[place] [address] USAAST [Catalytic activity/Vol]11 U/AFag99-29Jvp [facility] Physician GroupComment on above:Performed By: #### BNP, CMP, CK, LIPASE, PT, HS TROP, CBC ####[place] [address] USABilirubin [Mass/Vol]0.5 mg/dLNormal0.3-1.0The [facility] Physician GroupComment on above:Performed By: #### BNP, CMP, CK, LIPASE, PT, HS TROP, CBC ####[place] [address] USACalcium [Mass/Vol]8.4 mg/dLLow8.6-10.3The [facility] Physician GroupComment on above:Performed By: #### BNP, CMP, CK, LIPASE, PT, HS TROP, CBC ####[place] [address] USAChloride [Moles/Vol]111 mmol/XPqao02-563Fij [facility] Physician GroupComment on above:Performed By: #### BNP, CMP, CK, LIPASE, PT, HS TROP, CBC ####[place] [address] USACO2 [Moles/Vol]22.1 mmol/OAxtarx05.0-31.0The [facility] Physician GroupComment on above:Performed By: #### BNP, CMP, CK, LIPASE, PT, HS TROP, CBC ####[place] [address] USACreatinine [Mass/Vol]2.38 mg/dLHigh 0.60-1.20The [facility] Physician GroupComment on above:Performed By: #### BNP, CMP, CK, LIPASE, PT, HS TROP, CBC ####[place] [address] USACreatinine Clr Calc Usjsaovv51.39NoECU Health Edgecombe Hospital Physician GroupComment on above:Performed By: #### BNP, CMP, CK, LIPASE, PT, HS TROP, CBC ####[place] [address] USAEstimated GFR19.870 mL/MinNormBaptist Health Fishermen’s Community Hospital Physician GroupComment on above:Performed By: #### BNP, CMP, CK, LIPASE, PT, HS TROP, CBC ####[address] [place] [address] USAGlobulin (S) [Mass/Vol]2.8 g/dLNormalThe [facility] Physician GroupComment on above:Performed By: #### BNP, CMP, CK, LIPASE, PT, HS TROP, CBC ####[address] [address] USAGlucose [Mass/Vol]144 mg/hXZrja07-755 The [facility] Physician GroupComment on above:Result Comment: Random Glucose Reference Range is dependent on time and content of last meal. Glucose of more than 200 mg/dL in a nonstressed, ambulatory subject supports the diagnosis of Diabetes Mellitus. ADA recommended reference rangePerformed By: #### BNP, CMP, CK, LIPASE, PT, HS TROP, CBC ####[place] [address] USAPotassium [Moles/Vol]4.2 mmol/LNormal3.5-5.1The [facility] Comment on above:Performed By: #### BNP, CMP, CK, LIPASE, PT, HS TROP, CBC ####[address] [address] USAProtein [Mass/Vol]6.5 g/dLNormal6.4-8.9The [facility] Physician GroupComment on above: Performed By: #### BNP, CMP, CK, LIPASE, PT, HS TROP, CBC ####[place] [id number] USASodium [Moles/Vol]139 mmol/L Vgnagt441-364Koh [facility] Physician GroupComment on above:Performed By: #### BNP, CMP, CK, LIPASE, PT, HS TROP, CBC ####[place] [id number] USAUrea nitrogen [Mass/Vol]26 mg/dLHigh7-25The [facility] Physician GroupComment on above:Performed By: #### BNP, CMP, CK, LIPASE, PT, HS TROP, CBC ####[place] [id number] USACreatine Kinaseon 24-23-3505AK [Catalytic activity/Vol]32 U/VSkfwbb19-544Whx [facility] Physician GroupComment on above: Performed By: #### BNP, CMP, CK, LIPASE, PT, HS TROP, CBC ####[facility] [address] [place] [address] USACreatine kinase [Enzymatic activity/volume] in Serum or PlasmaOrdered By: Louis Mcadams on 90-60-4355IO [Catalytic activity/Vol]Creatine kinase [Enzymatic activity/volume] in Serum or Iyaadq86-211EvinqinvlOhio State East HospitalCreatinine [Mass/volume] in Serum or PlasmaOrdered By: Louis Mcadams on 90-39-6018Rbtgwoxakj [Mass/Vol]Creatinine [Mass/volume] in Serum or PlasmaHigh0.60-1.20[facility] ECG 12 lead ECGon 73-50-3203UDW 12 lead ECGCHILDREN[facility] [address] [place] [address] Electrocardiograph Report Signed Patient: Hailee Trivedi MR#: [id number] 306 : 1940 Acct:[id number] Age/Sex: 84 / F ADM Date: 12/19/24 Loc: Room: [address] [place] [address] Type: ADM IN Attending Dr: Jonathan Valenzuela [...] was found Confirmed by LOUIS MCADAMS DO ([id number]) on 12/20/2024 4:24:52 PM Referred By: Electronically Signed By: LOUIS MCADAMS DO Transcribed By: MUS Signed By Louis Mcadams DO 12/20 1624NoECU Health Edgecombe Hospital Physician GroupEosinophils Auto (Bld) [#/Vol]Ordered By: Louis Mcadams on 84-20-8010Cqtxvpjjnjn (Bld) [#/Vol]Automated eosinophil count0.0-0.45Ohio [facility] East HospitalEosinophils/100 WBC Auto (Bld) Ordered By: Louis Mcadams on 28-70-6079Dksnvzxjyee/100 WBC (Bld)Automated eosinophil %.[facility] East HospitalErythrocyte distribution width Auto (RBC) [Ratio]Ordered By: Louis Mcadams on 16-85-8098Pqnlxdrflpf distribution width (RBC) [Ratio]Erythrocyte distribution width [Ratio] by Automated count11.9-15.3FZanesville City HospitalGlobulin Calc (S) [Mass/Vol]Ordered By: Louis Mcadams on 49-53-0918Nefjrrrb (S) [Mass/Vol]Serum globulin measurement by calculation (mass/volume)[facility] HospitalGlucose Poct Glucometerson 73-04-1271Zohmutk [Mass/Vol]143 mg/dLNoECU Health Edgecombe Hospital Physician GroupComment on above:Result Comment: Random Glucose Reference Range is dependent on time and content of last meal. Glucose of more than 200 mg/dL in a nonstressed, ambulatory subject supports the diagnosis of Diabetes Mellitus. PERFORMED BY: [address] [place] [address] PATHOLOGIST DIRECTOR OF PHOTOGRAPHY CARLOS A CARD M.D.Performed By: #### GLULS ####Point of Care testing, Glucose [Mass/volume] in Serum or PlasmaOrdered By: Louis Mcadams on 12-19-2024 Glucose [Mass/Vol]Glucose [Mass/volume] in Serum or RqpyaePxxu45-138JgswstfewOhio State East HospitalHematocrit Auto (Bld) [Volume fraction]Ordered By: Louis Mcadams on 64-98-7895Zxufhupudc (Bld) [Volume fraction]Hematocrit [Volume Fraction] of Blood by Automated count34.0-46.4FZanesville City Hospital Hemoglobin [Mass/volume] in BloodOrdered By: Louis Mcadams on 12-19-2024 Hemoglobin (Bld) [Mass/Vol]Hemoglobin [Mass/volume] in IhiruLak47.8-15.4 [facility] HospitalINR in Platelet poor plasma by Coagulation assayOrdered By: Louis Mcadams on 16-47-8531VUF Coag (PPP) [Relative time]INR in Platelet poor plasma by Coagulation assayOhio State East Hospital Comment on above:INR Therapeutic Range A) [...] by Automated counOrdered By: Louis Mcadams on 81-88-9556PZI corrected for nucl RBC Auto (Bld) [#/Vol]Leukocytes [#/volume] corrected for nucleated erythrocytes in Blood by Automated coun3.8-11.6FZanesville City Hospital Lipaseon 56-89-5546Wtpadg [Catalytic activity/Vol]35.0 U/BEncwsx10.0-82.0The [facility] Physician GroupComment on above:Result Comment: PERFORMED BY: [facility] [address] [place] [address] PATHOLOGIST DIRECTOR OF PHOTOGRAPHY CARLOS A CARD M.D.Performed By: #### BNP, CMP, CK, LIPASE, PT, HS TROP, CBC ####[facility] [address] Lipase [Enzymatic activity/volume] in Serum or PlasmaOrdered By: Louis Mcadams on 70-95-5254Fmizvh [Catalytic activity/Vol]Lipase [Enzymatic activity/volume] in Serum or Udbfli00.0-82.0[facility] East HospitalLymphocytes Auto (Bld) [#/Vol]Ordered By: Louis Mcadams on 64-17-7476Vkuofzhiwbb (Bld) [#/Vol] Lymphocytes [#/volume] in Blood by Automated count1.00-4.8[facility] East HospitalLymphocytes/100 WBC Auto (Bld)Ordered By: Louis Mcadams on 27-66-6420Wzwnelnywjo/100 WBC (Bld)Lymphocytes/100 leukocytes in Blood by Automated count.[facility]by [facility] HospitalH Auto (RBC) [Entitic mass] Ordered By: Louis Mcadams on 44-67-8271DAV (RBC) [Entitic mass]MCH [Entitic mass] by Automated count24.7-34.3FZanesville City HospitalMCHC Auto (RBC) [Mass/Vol]Ordered By: Louis Mcadams on 39-08-0180ODHJ (RBC) [Mass/Vol]MCHC [Mass/volume] by Automated count32.0-35.0Shelby Memorial HospitalV Auto (RBC) [Entitic vol]Ordered By: Louis Mcadams on 59-01-3221WPH (RBC) [Entitic vol]MCV [Entitic volume] by Automated ufmfj76-545CgdhnpvkbOhio State East HospitalMonocyte distribution width [Entitic volume] in Blood by Automated Ordered By: Louis Mcadams on 28-43-7118Nqxnfard distribution width Auto (Bld) [Entitic vol]Monocyte distribution width [Entitic volume] in Blood by Automated High0.00-20.00[facility] East HospitalComment on above:For adults in ED, MDW > 20.0 may be associated with a higher risk of sepsis during the first 12 hrs of hospital admissionMonocytes Auto (Bld) [#/Vol]Ordered By: Louis Mcadams on 02-04-5207Pobckwewu (Bld) [#/Vol]Automated blood monocyte count 0.0-0.8[facility] East HospitalMonocytes/100 WBC Auto (Bld)Ordered By: Louis Mcadams on 39-70-8875Rdhdpnrco/100 WBC (Bld)Automated monocyte %.[facility] HospitalNatriuretic peptide B [Mass/Vol]Ordered By: Louis Mcadams on 97-09-1005Wpmdatwuhzv peptide B (Bld) [Mass/Vol]BNP ser/plasHigh 5-100Ohio [facility] East HospitalNeutrophils Auto (Bld) [#/Vol]Ordered By: Louis Mcadams on 70-44-8298Hohrsowxqfz (Bld) [#/Vol]Neutrophils [#/volume] in Blood by Automated count1.8-7.7FZanesville City HospitalNeutrophils/100 WBC Auto (Bld)Ordered By: Louis Mcadams on 86-21-0879Sqtzotmufcf/100 WBC (Bld) Automated neutrophil %.[facility] HospitalNo Panel Information Ordered By: Louis Mcadams on 39-59-308287.870 mL/MinOhio State East Hospital32.39[facility] East HospitalNucleated erythrocytes [Presence] in Blood by Automated countOrdered By: Louis Mcadams on 51-94-7800Hbomjfvst RBC Auto Ql (Bld)Nucleated erythrocytes [Presence] in Blood by Automated count0-0.5 [facility] HospitalPlatelet mean volume Auto (Bld) [Entitic vol] Ordered By: Louis Mcadams on 42-74-8907Swiczfzj mean volume (Bld) [Entitic vol] Platelet mean volume [Entitic volume] in Blood by Automated count6.3-10.7 [facility] HospitalPlatelets Auto (Bld) [#/Vol]Ordered By: Louis Mcadams on 62-80-5924Vydouguwx (Bld) [#/Vol]Platelets [#/volume] in Blood by Automated gftca585-129WlgxnawveOhio State East HospitalPotassium [Moles/volume] in Serum or PlasmaOrdered By: Louis Mcadams on 07-00-3591Fcxpuvljm [Moles/Vol] Potassium [Moles/volume] in Serum or Plasma3.5-5.1FZanesville City HospitalProtein [Mass/volume] in Serum or PlasmaOrdered By: Louis Mcadams on 47-61-1003Tkevhwk [Mass/Vol]Protein [Mass/volume] in Serum or Plasma6.4-8.9 [facility] HospitalProthrombin Time INRon 87-37-0260QVR Coag (PPP) [Relative time]1.3 {INR}NormalThe Formerly [facility] Physician GroupComment on above: Result Comment: INR [...] heart valves: 3 - 4.5 PERFORMED BY: [place] [address] [place] [address] PATHOLOGIST DIRECTOR OF PHOTOGRAPHY CARLOS A CARD M.D.Performed By: #### BNP, CMP, CK, LIPASE, PT, HS TROP, CBC ####[facility] [address] [place] [address] USAPT Coag (PPP) [Time]14.5 sHigh9.0-12.9The [facility] Physician GroupComment on above:Result Comment: A hematocrit value greater than 55% may lead to inaccurate results in coagulation testing. Patients having hematocrit values >55% require a special collection tube for coagulation studies. Please contact the laboratory at [phone] for redraw instructions.Performed By: #### BNP, CMP, CK, LIPASE, PT, HS TROP, CBC ####[facility] [address] [place] [address] RUST Prothrombin time (PT)Ordered By: Louis Mcadams on 48-91-5666KS Coag (PPP) [Time] Prothrombin time (PT)High9.0-12.9[facility] East HospitalComment on above:A hematocrit value greater than 55% may lead to inaccurate results in coagulation testing. Patientshaving hematocrit values >55% require a special collection tube for coagulation studies. Please contact the laboratory at [phone] for redraw instructions.RBC Auto (Bld) [#/Vol]Ordered By: Louis Mcadams on 66-13-9427FPF (Bld) [#/Vol]Erythrocytes [#/volume] in Blood by Automated count3.60-5.00[facility] HospitalRespiratory specimen influenza A virus, influenza B virus, respiratory syncytical virOrdered By: Louis Mcadams on 24-19-7929MKDC-CoV-2 (COVID-19) RNA RADHA+probe Ql (Unsp spec) Respiratory specimen influenza A virus, influenza B virus, respiratory syncytical virTrumbull Memorial Hospitalerum or plasma albumin/globulin mass ratioOrdered By: Louis Mcadams on 17-44-7131Hykilvl/Globulin [Mass ratio] Serum or plasma albumin/globulin mass ratioOhio State East Hospital Serum or plasma anion gap determinationOrdered By: Louis Mcadams on 12-19-2024 Anion gap [Moles/Vol]Serum or plasma anion gap determination6.0-15.0Trumbull Memorial Hospitalodium [Moles/volume] in Serum or PlasmaOrdered By: Louis Mcadams on 28-02-4815Wgmlcb [Moles/Vol]Sodium [Moles/volume] in Serum or Plasma 136-145Ohio [facility] East HospitalTroponin I High Sensitivityon 12-19-2024 Troponin I High Ghipswovcgu6Rqnjfj1-23Oov [facility] Physician GroupComment on above:Result Comment: The Troponin units of report have been changed to meet the Chest Pain Accreditation requirement, element EC5.M1l2. Troponin units are changed from pg/ml to ng/L. Also, the decimal is removed and results are in whole numbers. PERFORMED BY: [facility] [address] [place] [address] PATHOLOGIST DIRECTOR OF PHOTOGRAPHY CARLOS A CARD M.D.Performed By: #### BNP, CMP, CK, LIPASE, PT, HS TROP, CBC ####[facility] Troponin I.cardiac [Mass/volume] in Serum or Plasma by Detection limit <= 0.01 ng/Ordered By: Louis Mcadams on 13-21-2071Jvolzcfi I.cardiac DL <= 0.01 ng/mL [Mass/Vol]Troponin I.cardiac [Mass/volume] in Serum or Plasma by Detection limit <= 0.01 ng/0-15[facility] HospitalComment on above:The Troponin units of report have been changed to meet the Chest Pain Accreditation requirement, element EC5.M1l2. Troponin units are changed from pg/ml to ng/L. Also, the decimal is removed and results are in whole numbers.Urea nitrogen [Mass/volume] in Serum or PlasmaOrdered By: Louis Mcadams on 86-29-7380Repq nitrogen [Mass/Vol]Urea nitrogen [Mass/volume] in Serum or PlasmaHigh7-25 [facility] HospitalWBC Auto (Bld) [#/Vol]Ordered By: Louis Mcadams on 17-83-6510SCR (Bld) [#/Vol]Leukocytes [#/volume] in Blood by Automated count 3.8-11.6FZanesville City HospitalX-ray reportOrdered By: Pj Palm on 34-03-5234Xgdzz reportOhio State East HospitalXR chest 2V*on 15-55-0662OI chest 2V*[facility] [address] [place] [address] XRay Report Signed Patient: Hailee Trivedi MR#: [id number] 306 : 1940 Acct:[id number] Age/Sex: 84 / F ADM Date: 12/19/24 Loc: ER Room: Type: [facility] ER Attending Dr: Copies to: Louis [...] Palm Jr., D.O.12/19/2024 2:57 PM Dictation Location: [place] [address] Transcribed By: [facility] 12/19/24 1457 Dictated By: Pj Palm Jr, DO 12/19/24 1456 Signed By: 12/19/24 1457[facility] Physician GroupAlbumin [Mass/volume] in Serum or Plasma by Bromocresol green (BCG) dye binding methoOrdered By: Akin Suarez on 22-03-2979Qxtryqu BCG dye [Mass/Vol]Albumin [Mass/volume] in Serum or Plasma by Bromocresol green (BCG) dye binding metho3.5-5.7FZanesville City HospitalAppearance of UrineOrdered By: Akin Suarez on 13-59-3067Vhncldqlkn (U) Urine appearanceCleUniversity Hospitals Portage Medical CenterAppearance (U)ClearNormal ClearOhio State East HospitalComment on above:Performed By: #### PROCRERAT, ADDONUAPLUS ####[facility] [address] [place] [address] USABacteria [Presence] in Urine by AutomatedOrdered By: Akin Suarez on 72-13-2959Luzulxei Auto Ql (U)Bacteria [Presence] in Urine by AutomatedNone [facility] Medical CenterBacteria Auto Ql (U)Rare [HPF]None [facility] CenterBilirubin Test strip Ql (U) Ordered By: Akin Suarez on 31-82-7491Earclntgh Ql (U)Bilirubin.total [Presence] in Urine by Test stripNegativeOhio State East HospitalBilirubin Ql (U) NegativeNegativeOhio State East HospitalCalcium [Mass/volume] in Serum or PlasmaOrdered By: Akin Suarez on 32-57-6092Vqttdcs [Mass/Vol]Calcium [Mass/volume] in Serum or Plasma8.6-10.3FZanesville City HospitalCalcium oxalate crystals [Presence] in Urine by Computer assisted methodOrdered By: Akin Suarez on 32-25-8854Jgyklwi oxalate crystals Computer assisted Ql (U) Calcium oxalate crystals [Presence] in Urine by Computer assisted method [facility] HospitalCalcium oxalate crystals Computer assisted Ql (U)Rare [HPF][facility] HospitalCarbon dioxide, total [Moles/volume] in Serum or PlasmaOrdered By: Akin Suarez on 47-19-2126JK5 [Moles/Vol]Carbon dioxide, total [Moles/volume] in Serum or Phcuzj66.0-31.0 [facility] HospitalChloride [Moles/volume] in Serum or Plasma Ordered By: Akin Suarez on 25-35-7416Zukisynh [Moles/Vol]Chloride [Moles/volume] in Serum or JakqvjWohr21-968MlekieemaOhio State East HospitalColor Auto (U) Ordered By: Akin Suarez on 21-62-2304Zvkog (U)Color of Urine by AutoYellow [facility] HospitalColor of Urine by AutoOrdered By: Akin Suarez on 46-73-8584Liwji (U)Light-yellowNormalYHolzer Medical Center – Jackson Comment on above:Performed By: #### FAISAL CHEEMA ####[place] [address] [place] [address] USACreatinine [Mass/volume] in Serum or PlasmaOrdered By: Akin Suarez on 52-53-5064Hfkzggrsox [Mass/Vol]Creatinine [Mass/volume] in Serum or PlasmaHigh0.60-1.20[facility] HospitalCreatinine [Mass/volume] in UrineOrdered By: Akin Suarez on 14-06-0366Ptecjtcdpl (U) [Mass/Vol]Creatinine [Mass/volume] in UrineOhio State East HospitalComment on above:No reference range established Creatinine (U) [Mass/Vol]128.00 mg/dLOhio State East HospitalComment on above:No reference range establishedCrystals [Presence] in Urine by Automated Ordered By: Akin Suarez on 83-22-6836Nnirzwyn Auto Ql (U)Crystals [Presence] in Urine by AutomatedOhio State East HospitalCrystals Auto Ql (U)1+ [HPF] [facility] HospitalDipstick and Microscopicon 12-12-2024 Bacteria,UrineRareNormalNone SeenThe Formerly [facility] Physician GroupComment on above: Performed By: #### LENNIERERAT ADDONUAPLUS ####[address] [address] USABilirubin,UrineNegativeNormalNegativeThe [facility]ly [facility] Physician GroupComment on above:Performed By: #### PROCRERAT ADDONUAPLUS ####[address] [address] USACalcium Oxalate Crystals,UrineRareNormalThe [facility] Comment on above:Performed By: #### PROCRERAT, ADDONUAPLUS ####[address] [address] USAGlucose Ql (U)Normal NormalNormalThe [facility] Physician GroupComment on above:Performed By: #### PROCRERAT, ADDONUAPLUS ####[address] [address] USAHyaline Casts,UrineNoneNormal0-8The [facility] Physician GroupComment on above:Performed By: #### PROCRERAT, ADDONUAPLUS ####[address] [address] [place] Mucus,UrineRareNormalThe [facility] Physician GroupComment on above:Result Comment: PERFORMED BY: [facility] [address] [place] [address] PATHOLOGIST DIRECTOR OF PHOTOGRAPHY CARLOS A CARD M.D.Performed By: #### PROCRERAT, ADDONUAPLUS ####[address] [address] [place] Nitrite,UrineNegativeNormalNegativeThe [facility] Physician GroupComment on above:Performed By: #### PROCRERAT, ADDONUAPLUS ####[address] [address] USAOccult Blood,UrineNegativeNormal NegativeThe [facility] Physician GroupComment on above:Performed By: #### PROCRERAT, ADDONUAPLUS ####[address] [address] USAOthe Crystals,Urine1+NormalThe Formerly [facility] Physician GroupComment on above:Performed By: #### PROCRERAT, ADDONUAPLUS ####[address] [address] USARBC,Urine1 [HPF] Normal0-4The [facility] Physician GroupComment on above:Performed By: #### PROCRERAT, ADDONUAPLUS ####[address] [address] USASpecificy Heartwell,Urine1.240Xngyrl3.001-1.030The [facility] Physician GroupComment on above:Performed By: #### PROCRERAT, ADDONUAPLUS ####[address] [address] USASquamous Epithelial Cell,Urine3 [HPF]High0-2The [facility] Physician GroupComment on above:Performed By: #### PROCRERAT, ADDONUAPLUS ####[address] [address] USAUrobilinogen,Urine NormalNormalNormalThe [facility] Physician [facility] County HospitalComment on above:Performed By: #### PROCRERAAntwan, ADDONUAPLUS ####[facility] [address] [place] [address] RUSTWBC CLUMP, UrineOccasionalHighNone SeenThe [facility] Physician [facility] County HospitalComment on above:Performed By: #### PROCRERAT, ADDONUAPLUS ####[facility] [address] [place] [address] [place] WBC,Urine3 [HPF]Normal0-4The [facility] Physician [facility] County HospitalComment on above:Performed By: #### PROCRERAT, ADDONUAPLUS ####[facility] [address] StreetEpithelial cells.squamous [#/area] in Urine sediment by Automated countOrdered By: Akin Suarez on 96-20-1787Hchyyavyvq cells.squamous Auto (Urine sed) [#/Area]Epithelial cells.squamous [#/area] in Urine sediment by Automated countHigh02FZanesville City Hospital Epithelial cells.squamous Auto (Urine sed) [#/Area]3-4 [HPF]High02FZanesville City HospitalErythrocyte distribution width Auto (RBC) [Ratio]Ordered By: Akin Suarez on 99-81-4584Ksmkpqhqtls distribution width (RBC) [Ratio] Erythrocyte distribution width [Ratio] by Automated count11.9-15.3FZanesville City HospitalErythrocytes [#/area] in Urine sediment by Automated countOrdered By: Akin Suarez on 33-22-2259SLC Auto (Urine sed) [#/Area] Erythrocytes [#/area] in Urine sediment by Automated count0-4FZanesville City HospitalRBC Auto (Urine sed) [#/Area]1-2 [HPF]0-4FZanesville City HospitalGlucose [Mass/volume] in Serum or PlasmaOrdered By: kAin Suarez on 28-55-8087Vbvaxsn [Mass/Vol]Glucose [Mass/volume] in Serum or XhsrhaIkwh27-937 [facility] HospitalComment on above:ADA recommended reference rangeRandom Glucose Reference Range is dependent on time and content of last meal. Glucose of more than 200 mg/dL in a nonstressed, ambulatory subject supports the diagnosisof Diabetes Mellitus.Glucose [Mass/volume] in Urine by Test stripOrdered By: Akin Suarez on 94-13-6260Rwryrad Test strip (U) [Mass/Vol] Glucose [Mass/volume] in Urine by Test stripNoProtestant HospitalGlucose Test strip (U) [Mass/Vol]Normal mg/dLNoProtestant HospitalHematocrit Auto (Bld) [Volume fraction]Ordered By: Akin Suarez on 95-52-5263Mzmykkvoig (Bld) [Volume fraction]Hematocrit [Volume Fraction] of Blood by Automated count34.0-46.4FZanesville City HospitalHemoglobin Test strip Ql (U)Ordered By: Akin Suarez on 16-92-4142Ksandndwwx Ql (U) Hemoglobin [Presence] in Urine by Test stripNegativeOhio State East HospitalHemoglobin Ql (U)NegativeNegUniversity Hospitals Conneaut Medical Center Hemoglobin [Mass/volume] in BloodOrdered By: Akin Suarez on 20-87-5648Uafeqypmta (Bld) [Mass/Vol]Hemoglobin [Mass/volume] in Blood11.8-15.4FZanesville City HospitalHemogram CBC Without Diffon 62-23-3733Wsgtlzuvfhp distribution width (RBC) [Ratio]13.4 %Jlhmuc18.9-15.3The [facility] Physician GroupComment on above:Performed By: #### MG, CBCNO, [id number], URIC, RENAL, PTH ####[facility] [address] [place] [address] USAHematocrit (Bld) [Volume fraction]36.8 %Kaepuj85.0-46.4The [facility] Physician GroupComment on above:Performed By: #### MG, CBCNO, [id number], URIC, RENAL, PTH ####[facility] [place] [address] USAHemoglobin (Bld) [Mass/Vol]12.1 g/tLIemzmw00.8-15.4The [facility] Physician GroupComment on above: Performed By: #### MG, CBCNO, [id number], URIC, RENAL, PTH ####[address] [place] [address] [facility]H (RBC) [Entitic mass]31.2 mtFvdtio70.7-34.3The [facility] Physician GroupComment on above:Performed By: #### MG, CBCNO, [id number], URIC, RENAL, PTH ####[address] [place] [address] [facility] CITYV (RBC) [Entitic vol]95.0 fLNormal 80-100The [facility] Physician GroupComment on above:Performed By: #### MG, CBCNO, [id number], URIC, RENAL, PTH ####[address] [address] USAMean Corpuscular HGB Conc32.8 g/hTPazxhw81.0-35.0The [facility] Physician GroupComment on above:Performed By: #### MG, CBCNO, [id number], URIC, RENAL, PTH ####[address] [address] USAPlatelet mean volume (Bld) [Entitic vol]10.3 fL Normal6.3-10.7The [facility] Physician GroupComment on above:Result Comment: PERFORMED BY: [facility] [address] [place] [address] PATHOLOGIST DIRECTOR OF PHOTOGRAPHY CARLOS A CARD M.D.Performed By: #### MG, CBCNO, [id number], URIC, RENAL, PTH ####[address] [address] [place] Platelets (Bld) [#/Vol]213 10*3/hQAxirtl599-641Efe [facility] Comment on above:Performed By: #### MG, CBCNO, [id number], URIC, RENAL, PTH ####[address] [address] USARBC (Bld) [#/Vol]3.87 10*6/uLNormal3.60-5.00The [facility] Physician GroupComment on above:Performed By: #### MG, CBCNO, [id number], URIC, RENAL, PTH ####[place] [id number] USAWBC (Bld) [#/Vol]6.4 10*3/uLNormal3.8-11.6The [facility] Physician GroupComment on above:Performed By: #### MG, CBCNO, [id number], URIC, RENAL, PTH ####[place] [address] [place] [id number] USAHyaline casts [#/area] in Urine sediment by Automated countOrdered By: Akin Hernandezdir on 88-42-2432Ythwiep casts Auto (Urine sed) [#/Area]Hyaline casts [#/area] in Urine sediment by Automated count0-8Ohio State East HospitalHyaline casts Auto (Urine sed) [#/Area] None [LPF]0-8[facility] East HospitalKetones Test strip Ql (U)Ordered By: Akin Lopez on 19-68-9243Joydwgq Ql (U)Ketones [Presence] in Urine by Test stripNegUniversity Hospitals Conneaut Medical CenterKetones [Presence] in Urine by Test stripOrdered By: Akin Lopez on 96-49-8112Cilpilp Ql (U)NegativeNormal NegativeOhio State East HospitalComment on above:Performed By: #### PROCRERAT, ADDONUAPLUS ####[place] [id number] USALeukocyte clumps [Presence] in Urine by Automated Ordered By: Akin Lopez on 07-42-3553Uujryqvgj clumps Auto Ql (U)Leukocyte clumps [Presence] in Urine by AutomatedHighDetwiler Memorial HospitalLeukocyte clumps Auto Ql (U)Occasional [LPF]HighNone [facility] Tri[facility] Medical CenterLeukocyte esterase [Presence] in Urine by Test strip Ordered By: Akin Lopez on 69-02-0373Ifbilcsih esterase Test strip Ql (U) Leukocyte esterase [Presence] in Urine by Test stripHighNegUniversity Hospitals Conneaut Medical CenterLeukocyte esterase Test strip Ql (U)1+HighNegative [facility] HospitalComment on above:Performed By: #### FAISAL CHEEMA ####[facility] [place] [address] USALeukocytes [#/area] in Urine sediment by Automated countOrdered By: Akin Suarez on 96-54-8742IJD Auto (Urine sed) [#/Area]Leukocytes [#/area] in Urine sediment by Automated count0-4FZanesville City HospitalWBC Auto (Urine sed) [#/Area]3-4 [HPF]0-4FZanesville City HospitalLeukocytes [#/volume] corrected for nucleated erythrocytes in Blood by Automated coun Ordered By: Akin Suarez on 53-26-9410HDM corrected for nucl RBC Auto (Bld) [#/Vol]Leukocytes [#/volume] corrected for nucleated erythrocytes in Blood by Automated coun3.8-11.6FUC [facility] HospitalH Auto (RBC) [Entitic mass]Ordered By: Akin Suarez on 93-64-1065JCM (RBC) [Entitic mass]MCH [Entitic mass] by Automated count24.7-34.3FUC West Chester HospitalHC Auto (RBC) [Mass/Vol]Ordered By: Akin Hernandezdir on 10-39-0331ZJNG (RBC) [Mass/Vol]MCHC [Mass/volume] by Automated count32.0-35.0[facility] HospitalMCV Auto (RBC) [Entitic vol]Ordered By: Akin Suarez on 74-88-1061SPU (RBC) [Entitic vol]MCV [Entitic volume] by Automated zywjy96-447TkykgfyuwOhio State East HospitalMagnesium [Mass/volume] in Serum or PlasmaOrdered By: Akin Suarez on 20-68-5435Ginsfrbam [Mass/Vol]Magnesium [Mass/volume] in Serum or Plasma1.9-2.7 [facility] HospitalMagnesium [Mass/Vol]2.0 mg/dLNormal1.9-2.7 [facility] HospitalComment on above:Performed By: #### MG, CBCNO, [id number], URIC, RENAL, PTH ####[facility] [address] [place] [address] USAMucus [Presence] in Urine by AutomatedOrdered By: Akin Suarez on 46-46-4259Wqbep Auto Ql (U)Mucus [Presence] in Urine by Automated [facility] HospitalMucus Auto Ql (U)Rare [LPF][facility] HospitalNitrite Test strip Ql (U)Ordered By: Akin Suarez on 12-12-2024 Nitrite Ql (U)Nitrite [Presence] in Urine by Test stripNegativeOhio State East HospitalNitrite Ql (U)NegativeNegativeOhio State East HospitalNo Panel InformationOrdered By: Akin Suarez on 08-41-3503Qvkqohvhb GFR (CKD-EPI)20.812 mL/MinOhio State East HospitalPharmacy Creatinine Clearance (Chem21.90[facility]20.812 mL/MinOhio State East Hospital21.90[facility] HospitalParathyrin.intact [Mass/volume] in Serum or PlasmaOrdered By: Akin Suarez on 12-12-2024 Parathyrin.intact [Mass/Vol]Parathyrin.intact [Mass/volume] in Serum or Plasma [address] StreetParathyrin.intact [Mass/Vol]155.9 pg/wHYcat88-42Yujpuwzly10 Parker StreetParathyroid Hormone Intacton 11-39-3192Bqpslnfyngq Hormone Fjbykc308.9 pg/gQZrhm35-59Oyj [facility] Physician GroupComment on above:Result Comment: PERFORMED BY: [facility] [address] [place] [address] PATHOLOGIST DIRECTOR OF PHOTOGRAPHY CARLOS A CARD M.D.Performed By: #### MG, CBCNO, [id number], URIC, RENAL, PTH ####[facility] [address] [place] [address] RUST Phosphate [Mass/volume] in Serum or PlasmaOrdered By: Akin Suarez on 12-12-2024 Phosphate [Mass/Vol]Phosphate [Mass/volume] in Serum or Plasma2.5-4.5FZanesville City HospitalPhosphate [Mass/Vol]3.6 mg/dLNormal2.5-4.5FZanesville City HospitalComment on above:Performed By: #### MG, CBCNO, [id number], URIC, RENAL, PTH ####[facility] [place] [address] USAPlatelet mean volume Auto (Bld) [Entitic vol]Ordered By: Akin Suarez on 27-07-6016Gixcmqii mean volume (Bld) [Entitic vol]Platelet mean volume [Entitic volume] in Blood by Automated count6.3-10.7FZanesville City HospitalPlatelets Auto (Bld) [#/Vol]Ordered By: Akin Lopez on 86-86-0683Mckyzsnzr (Bld) [#/Vol]Platelets [#/volume] in Blood by Automated -373NgbravxwmOhio State East HospitalPotassium [Moles/volume] in Serum or PlasmaOrdered By: Akin Suarez on 43-27-1469Dzhalhtng [Moles/Vol]Potassium [Moles/volume] in Serum or Plasma3.5-5.1FZanesville City HospitalProtein Creat Ratio Ur Randomon 78-50-8764Ubpydhlysi, Urine (Random)128.00 mg/dLNormalThe Formerly [facility] Physician GroupComment on above:Result Comment: No reference range establishedPerformed By: #### EVGENY CHEEMAONUAPLUS ####[place] [address] [place] [address] USAUrine Protein/Creatinine Hcomf262 mg/g{Cre}High0-200 The [facility] Physician GroupComment on above:Result Comment: PERFORMED BY: [facility] [address] [place] [id number] PATHOLOGIST DIRECTOR OF PHOTOGRAPHY CARLOS A CARD M.D.Performed By: #### ANETTE ADDONUAPLUS ####[address] [address] USAProtein Test strip (U) [Mass/Vol]Ordered By: Akin Suarez on 86-45-0747Bkrsytl (U) [Mass/Vol]Protein [Mass/volume] in Urine by Test stripHighNegativeFirelands Regional Medical CenterProtein [Mass/volume] in UrineOrdered By: Akin Suarez on 93-23-8772Zjqffqd (U) [Mass/Vol]Protein [Mass/volume] in UrineMan Appalachian [facility] Hospital09[facility] HospitalProtein (U) [Mass/Vol]42 mg/dLPaul A. Dever State [facility] HospitalComment on above:Performed By: #### BLADIMIR CHEEMAPLUS ####[address] [address] USAProtein [Mass/volume] in Urine by Test stripOrdered By: Akin Suarez on 12-12-2024 Protein (U) [Mass/Vol]30 mg/dLKettering Health Main Campus Comment on above:Performed By: #### BLADIMIR CHEEMAPLUS ####[address] [address] USARBC Auto (Bld) [#/Vol]Ordered By: Akin Suarez on 36-91-1923UZH (Bld) [#/Vol]Erythrocytes [#/volume] in Blood by Automated count3.60-5.00[facility] Renal Function Panelon 01-71-2992Pqwhcym [Mass/Vol]3.8 g/dLNormal3.5-5.7The [facility] Physician GroupComment on above:Performed By: #### MG, CBCNO, [id number], URIC, RENAL, PTH ####[address] [address] USAAnion gap [Moles/Vol]15.4 mmol/LHigh6.0-15.0The [facility] Physician GroupComment on above:Performed By: #### MG, CBCNO, [id number], URIC, RENAL, PTH ####[address] [address] USACalcium [Mass/Vol]8.6 mg/dLNormal8.6-10.3The [facility] Physician GroupComment on above:Performed By: #### MG, CBCNO, [id number], URIC, RENAL, PTH ####[place] [address] [place] [phone] USAChloride [Moles/Vol]108 mmol/OQabq89-190Ovv [facility] Physician GroupComment on above:Performed By: #### MG, CBCNO, [id number], URIC, RENAL, PTH ####[place] [address] [place] [address] USACO2 [Moles/Vol]22.2 mmol/QKjzulv24.0-31.0The [facility] Physician GroupComment on above:Performed By: #### MG, CBCNO, [id number], URIC, RENAL, PTH ####[place] [phone] USACreatinine [Mass/Vol]2.29 mg/dLHigh0.60-1.20The [facility] Physician GroupComment on above:Performed By: #### MG, CBCNO, [id number], URIC, RENAL, PTH ####[place] [phone] USACreatinine Clr Calc Nnzwnyue20.90NoECU Health Edgecombe Hospital Physician [facility]ipp[facility] County HospitalComment on above:Performed By: #### MG, CBCNO, [id number], URIC, RENAL, PTH ####[place] [phone] USAEstimated GFR20.812 mL/MinNoECU Health Edgecombe Hospital Physician [facility] County HospitalComment on above:Performed By: #### MG, CBCNO, [id number], URIC, RENAL, PTH ####[place] [phone] USAGlucose [Mass/Vol]117 mg/vHTwqv69-296Buc [facility] Physician [facility] County HospitalComment on above:Result Comment: Random Glucose Reference Range is dependent on time and content of last meal. Glucose of more than 200 mg/dL in a nonstressed, ambulatory subject supports the diagnosis of Diabetes Mellitus. ADA recommended reference rangePerformed By: #### MG, CBCNO, [id number], URIC, RENAL, PTH ####[place] [phone] USAPotassium [Moles/Vol]4.6 mmol/LNormal3.5-5.1The [facility] Comment on above:Performed By: #### MG, CBCNO, [id number], URIC, RENAL, PTH ####[facility] [place] [address] USASodium [Moles/Vol]141 mmol/EZtmdle213-105Zkg [facility] Physician GroupComment on above: Performed By: #### MG, CBCNO, [id number], URIC, RENAL, PTH ####[facility] [place] [phone] USAUrea nitrogen [Mass/Vol]23 mg/dLNormal7-25The [facility] Physician GroupComment on above:Performed By: #### MG, CBCNO, [id number], URIC, RENAL, PTH ####[place] [address] [place] [address] USASerum or plasma anion gap determinationOrdered By: Akin Suarez on 71-55-8232Akrtf gap [Moles/Vol]Serum or plasma anion gap determinationHigh6.0-15.0Tr[facility]ull Memorial Hospitalodium [Moles/volume] in Serum or PlasmaOrdered By: Akin Suarez on 25-60-3129Abszby [Moles/Vol]Sodium [Moles/volume] in Serum or Dlezhm726-025DdggrhxyqOhio State East Hospital Specific gravity Test strip (U) [Rel density]Ordered By: Akin Suarez on 37-61-2597Qseokxdl gravity (U) [Rel density]Specific gravity of Urine by Test strip1.001-1.030Trumbull Memorial Hospitalpecific gravity (U) [Rel density]1.0161.001-1.030[facility] HospitalUrate [Mass/volume] in Serum or PlasmaOrdered By: Akin Suarez on 67-52-7459Ueact [Mass/Vol]Urate [Mass/volume] in Serum or PlasmaHigh2.3-6.6FZanesville City Hospital Urate [Mass/Vol]6.9 mg/dLHigh2.3-6.6FZanesville City HospitalComment on above:Performed By: #### MG, CBCNO, [id number], URIC, RENAL, PTH ####[facility] [address] [place] [address] USAUrea nitrogen [Mass/volume] in Serum or PlasmaOrdered By: Akin Suarez on 65-77-3356Hbvq nitrogen [Mass/Vol]Urea nitrogen [Mass/volume] in Serum or Plasma7Ohio State East HospitalUrine protein/creatinine ratioOrdered By: Akin Suarez on 49-69-7846Plxkjaa/Creatinine (U) [Ratio]Urine protein/creatinine ratioHigh0-200 [facility] HospitalProtein/Creatinine (U) [Ratio]328 mg/g{Cre}High 0-200Ohio [facility] East HospitalUrobilinogen Test strip (U) [Mass/Vol] Ordered By: Akin Suarez on 98-90-4781Elmuoxjovhma (U) [Mass/Vol]Urobilinogen [Mass/volume] in Urine by Test stripNormAdena Health System Urobilinogen (U) [Mass/Vol]Normal mg/dLNoProtestant Hospital Vitamin D 25 Hydroxy Totalon 51-99-2213Olmogov D 25 Hydroxy Total41.8 ng/mL Ogpogs02-937Ycd [facility] Physician GroupComment on above:Result Comment: VITAMIN D STATUS 25(OH)VITAMIN D RANGE (ng/mL) Deficient <20 Insufficient 20 to <30 Sufficient 30 to 100 Reference: Reji MF,Caro NC, Marguerite MCMAHON, et al. Evaluation,treatment, and prevention of vitamin D deficiency; an Endocrine Society clinical practice guideline. JCEM. 2010; 96(7):1911-30. PERFORMED BY: [facility] [address] [place] [address] PATHOLOGIST DIRECTOR OF PHOTOGRAPHY CARLOS A CARD M.D.Performed By: #### MG, CBCNO, [id number], URIC, RENAL, PTH ####[facility] [address] [place] [address] RUST Vitamin D+Metabolites [Mass/volume] in Serum or PlasmaOrdered By: Akin Suarez on 97-48-0935Fjuzuly D+Metabolites [Mass/Vol]Vitamin D+Metabolites [Mass/volume] in Serum or Hutvkf48-936EpwoiodfuOhio State East HospitalComment on above: VITAMIN D STATUS 25(OH)VITAMIN D RANGE (ng/mL) Deficient <20 Insufficient 20 to <09Wvcqyuezsz47 to 100Reference: Caro Vallejo, Marguerite MCMAHON, et al. Evaluation,treatment, and prevention of vitamin D deficiency; an Endocrine Society clinical practice guideline. [facility]. 2010; 96(7):1911-.Vitamin D+Metabolites [Mass/Vol]41.8 ng/rG14-307QbywebjpnOhio State East HospitalComment on above:VITAMIN D STATUS 25(OH)VITAMIN D RANGE (ng/mL) Deficient <20 Insufficient 20 to <69Uikktrgxqj30 to 100Reference: Caro Vallejo, Marguerite MCMAHON, et al. Evaluation,treatment, and prevention of vitamin D deficiency; an Endocrine Society clinical practice guideline. EM. 2010; 96 (7):1911-30.pH Test strip (U)Ordered By: Akin Suarez on 43-98-0809mU (U)pH of Urine by Test strip5.0-9.0[facility] HospitalpH of Urine by Test stripOrdered By: Akin Suarez on 47-23-3610vO (U)6.5 [pH]Normal5.0-9.0[facility] HospitalComment on above:Performed By: #### PROCRERAT, ADDONUAPLUS ####[facility] [address] [place] [address] USABasophils Auto (Bld) [#/Vol]on 69-45-5984Xzxvxweoj (Bld) [#/Vol] Automated basophil count0.0-0.1FZanesville City HospitalBasophils/100 WBC Auto (Bld)on 14-26-1952Rfbxszabh/100 WBC (Bld)Automated basophil %0.2-2.0 [facility] HospitalEosinophils/100 WBC Auto (Bld)on 11-24-2024 Eosinophils/100 WBC (Bld)Automated eosinophil %0.9-7.0[facility] HospitalErythrocyte distribution width Auto (RBC) [Ratio]on 95-20-7762Lesdkpxvbog distribution width (RBC) [Ratio]Erythrocyte distribution width [Ratio] by Automated count11.0-15.0[facility] HospitalEstimated glomerular filtration rate (GFR) non- Americanon 27-68-9081JOI/1.73 sq M.predicted among non-blacks MDRD (S/P/Bld) [Vol rate/Area]Estimated glomerular filtration rate (GFR) non- AmericanLow>=60 mL/min/1.73m 2FZanesville City HospitalGlobulin Calc (S) [Mass/Vol]on 02-12-2109Gaeqxzqg (S) [Mass/Vol]Serum globulin measurement by calculation (mass/volume)[facility] HospitalHematocrit Auto (Bld) [Volume fraction]on 70-97-5547Nzmlnnrjvy (Bld) [Volume fraction]Hematocrit [Volume Fraction] of Blood by Automated countLow 36.0-48.0[facility] HospitalHemoglobin [Mass/volume] in Bloodon 73-33-7629Maxxusvzsk (Bld) [Mass/Vol]Hemoglobin [Mass/volume] in BloodLow 12.0-16.0[facility] HospitalLaboratory - Chemistry and Chemistry - challengeon 03-62-1685Jjfmrdz [Mass/Vol]3.0 g/dLLow3.4-5.0[facility] HospitalALP [Catalytic activity/Vol]101 U/X97-704MhptkpbylOhio State East HospitalALT [Catalytic activity/Vol]10 U/VKvq37-68IlnlzcchuOhio State East HospitalAST [Catalytic activity/Vol]12 U/VAph18-29HzubbpkakOhio State East HospitalBilirubin [Mass/Vol]0.5 mg/dL0.2-1.0[facility] HospitalCalcium [Mass/Vol]7.9 mg/dLLow8.5-10.1FZanesville City Hospital Chloride [Moles/Vol]107 mmol/U93-002KatmonwftOhio State East HospitalCO2 [Moles/Vol]24.7 mmol/L21.0-32.0[facility] HospitalCreatinine [Mass/Vol]2.77 mg/dLHigh0.55-1.02[facility] HospitalGFR/1.73 sq M.predicted MDRD (S/P/Bld) [Vol rate/Area]20 mL/min/{1.73_m2}Low>=60 mL/min/1.73m 2FZanesville City HospitalGlucose [Mass/Vol]137 mg/dLHigh 74-106[facility] HospitalPotassium [Moles/Vol]3.3 mmol/LLow3.5-5.1 [facility] HospitalProtein [Mass/Vol]6.1 g/dLLow6.4-8.2FCleveland Clinic Fairview Hospitalodium [Moles/Vol]141 mmol/G074-240ZtdvdxlijOhio State East HospitalUrea nitrogen [Mass/Vol]23.0 mg/dLHigh7.0-18.0[facility] HospitalUrea nitrogen/Creatinine [Mass ratio]8.3 mg/mgOhio State East HospitalLaboratory - Hematology and Cell countson 32-01-4086Kuavqkmy granulocytes/100 WBC (Bld)0.3 %0.0-0.5FZanesville City Hospital Leukocytes [#/volume] corrected for nucleated erythrocytes in Blood by Automated counon 08-51-1616MYR corrected for nucl RBC Auto (Bld) [#/Vol]Leukocytes [#/volume] corrected for nucleated erythrocytes in Blood by Automated coun 4.0-11.0[facility] HospitalLymphocytes Auto (Bld) [#/Vol]on 29-42-1806Zbuhsiozebz (Bld) [#/Vol]Lymphocytes [#/volume] in Blood by Automated count1.2-3.8[facility] HospitalLymphocytes/100 WBC Auto (Bld)on 87-54-2565Cmzzjxxogxh/100 WBC (Bld)Lymphocytes/100 leukocytes in Blood by Automated qocbnFnf77.5-60.0[facility] HospitalMCH Auto (RBC) [Entitic mass]on 89-92-0596AYL (RBC) [Entitic mass]MCH [Entitic mass] by Automated count26.7-34.0[facility] HospitalMCHC Auto (RBC) [Mass/Vol]on 56-77-2397SBWE (RBC) [Mass/Vol]MCHC [Mass/volume] by Automated count29.9-35.2FZanesville City HospitalMCV Auto (RBC) [Entitic vol]on 17-23-6050IJT (RBC) [Entitic vol]MCV [Entitic volume] by Automated count 81.0-99.0[facility] HospitalMonocytes Auto (Bld) [#/Vol]on 46-29-1418Tkomnwuzu (Bld) [#/Vol]Automated blood monocyte count0.3-0.8[facility] HospitalMonocytes/100 WBC Auto (Bld)on 12-61-1162Qimwzmdfy/100 WBC (Bld)Automated monocyte %1.7-12.0[facility] Neutrophils Auto (Bld) [#/Vol]on 33-12-0942Itnzgrhkesz (Bld) [#/Vol]Neutrophils [#/volume] in Blood by Automated count1.4-6.5FZanesville City Hospital Neutrophils/100 WBC Auto (Bld)on 63-13-8411Mqzpmlxawut/100 WBC (Bld)Automated neutrophil %43.0-75.0[facility] HospitalNo Panel Informationon 40-43-3194Fezdvydmymv # (Auto)0.2 10 3/uL0.0-0.7FZanesville City HospitalImmature Granulocyte # (Auto)0.02 10 3/uL0.00-0.03[facility]101 U/H10-834MyjovhzlcOhio State East Hospital0.2 10 3/uL0.0-0.7 [facility]10 U/UZqg13-96LufzyydmwOhio State East Hospital 3.0 g/dLLow3.4-5.0[facility]12 U/NTqw56-22TnphlloihOhio State East Hospital8.3FZanesville City Hospital23.0 mg/dLHigh 7.0-18.0[facility]0.02 10 3/uL0.00-0.03[facility]7.9 mg/dLLow8.5-10.1FZanesville City Hospital0.3 %0.0-0.5 [facility]107 mmol/D73-129SmkzgupseOhio State East Hospital24.7 mmol/L21.0-32.0[facility]2.77 mg/dLHigh 0.55-1.02[facility]20Low>=60 mL/min/1.73m 2FZanesville City Hospital137 mg/dIBhew39-292WrvczdduhOhio State East Hospital3.3 mmol/LLow3.5-5.1FZanesville City Hospital141 mmol/T815-865MaoccrwgsOhio State East Hospital0.5 mg/dL0.2-1.0[facility]6.1 g/dL Low6.4-8.2FZanesville City HospitalPlatelet mean volume Auto (Bld) [Entitic vol]on 80-44-1968Aowdpldq mean volume (Bld) [Entitic vol]Platelet mean volume [Entitic volume] in Blood by Automated count9.5-13.5FZanesville City HospitalPlatelets Auto (Bld) [#/Vol]on 66-96-4042Hozvehxla (Bld) [#/Vol] Platelets [#/volume] in Blood by Automated fkusv554-473AkhkpbtbpOhio State East HospitalRBC Auto (Bld) [#/Vol]on 06-44-6062FVD (Bld) [#/Vol]Erythrocytes [#/volume] in Blood by Automated countLow4.20-5.40Trumbull Memorial Hospitalerum or plasma albumin/globulin mass ratioon 65-76-6775Kzvrihs/Globulin [Mass ratio]Serum or plasma albumin/globulin mass ratioTrumbull Memorial Hospitalerum or plasma anion gap determinationon 11-65-4877Dlicm gap [Moles/Vol]Serum or plasma anion gap determinationOhio State East HospitalBasophils Auto (Bld) [#/Vol]on 46-35-1041Dkkajtsnn (Bld) [#/Vol]Automated basophil count0.0-0.1FZanesville City HospitalBasophils/100 WBC Auto (Bld)on 19-46-2074Xqfljirsn/100 WBC (Bld)Automated basophil %0.2-2.0[facility] HospitalEosinophils/100 WBC Auto (Bld)on 11-23-2024 Eosinophils/100 WBC (Bld)Automated eosinophil %0.9-7.0[facility] HospitalErythrocyte distribution width Auto (RBC) [Ratio]on 21-95-2695Cfnyumxwugm distribution width (RBC) [Ratio]Erythrocyte distribution width [Ratio] by Automated count11.0-15.0[facility] HospitalEstimated glomerular filtration rate (GFR) non- Americanon 48-70-5799FRI/1.73 sq M.predicted among non-blacks MDRD (S/P/Bld) [Vol rate/Area]Estimated glomerular filtration rate (GFR) non- AmericanLow>=60 mL/min/1.73m 2FZanesville City HospitalHematocrit Auto (Bld) [Volume fraction]on 58-62-8164Rldzobvhcm (Bld) [Volume fraction]Hematocrit [Volume Fraction] of Blood by Automated count 36.0-48.0[facility] HospitalHemoglobin [Mass/volume] in Bloodon [id number] (Bld) [Mass/Vol]Hemoglobin [Mass/volume] in Blood12.0-16.0 [facility] HospitalLaboratory - Chemistry and Chemistry - challengeon [id number] [Mass/Vol]8.5 mg/dL8.5-10.1FZanesville City HospitalChloride [Moles/Vol]102 mmol/G04-004WjxtnffdmOhio State East HospitalCO2 [Moles/Vol]25.4 mmol/L21.0-32.0[facility] Creatinine [Mass/Vol]3.14 mg/dLHigh0.55-1.02[facility] GFR/1.73 sq M.predicted MDRD (S/P/Bld) [Vol rate/Area]17 mL/min/{1.73_m2}Low>=60 mL/min/1.[address]m [address] [place], [place] [address]Glucose [Mass/Vol]235 mg/dLHigh 74-106[facility] HospitalNatriuretic peptide B (Bld) [Mass/Vol] 2855.0 pg/mLCritically high<=1800.0[facility] HospitalComment on above:RESULTS CALLED TO TRUMAN SIMMONS RN AT 1146Potassium [Moles/Vol]3.6 mmol/L3.5-5.1FCleveland Clinic Fairview Hospitalodium [Moles/Vol]139 mmol/L 136-145[facility] HospitalUrea nitrogen [Mass/Vol]26.0 mg/dLHigh 7.0-18.0[facility] HospitalUrea nitrogen/Creatinine [Mass ratio] 8.3 mg/mgOhio State East HospitalLaboratory - Hematology and Cell countson 82-42-0680Jotcqdtm granulocytes/100 WBC (Bld)0.1 %0.0-0.5FZanesville City HospitalLeukocytes [#/volume] corrected for nucleated erythrocytes in Blood by Automated counon 74-99-9662FQL corrected for nucl RBC Auto (Bld) [#/Vol]Leukocytes [#/volume] corrected for nucleated erythrocytes in Blood by Automated coun4.0-11.0[facility] HospitalLymphocytes Auto (Bld) [#/Vol]on 50-62-6189Qdiyzcsxbpe (Bld) [#/Vol]Lymphocytes [#/volume] in Blood by Automated count1.2-3.8[facility] HospitalLymphocytes/100 WBC Auto (Bld)on 63-62-2617Xqdolbfadhh/100 WBC (Bld)Lymphocytes/100 leukocytes in Blood by Automated count20.5-60.0[facility] HospitalH Auto (RBC) [Entitic mass]on 08-18-3505GRM (RBC) [Entitic mass]MCH [Entitic mass] by Automated count26.7-34.0[facility] HospitalMCHC Auto (RBC) [Mass/Vol]on 88-40-7895KAWO (RBC) [Mass/Vol]MCHC [Mass/volume] by Automated count29.9-35.2FZanesville City HospitalMCV Auto (RBC) [Entitic vol]on 79-95-4973ULO (RBC) [Entitic vol]MCV [Entitic volume] by Automated count 81.0-99.0[facility] HospitalMonocytes Auto (Bld) [#/Vol]on 70-88-7388Dsofdztdv (Bld) [#/Vol]Automated blood monocyte count0.3-0.8[facility] HospitalMonocytes/100 WBC Auto (Bld)on 19-88-2755Ezvgjicca/100 WBC (Bld)Automated monocyte %1.7-12.0[facility] Neutrophils Auto (Bld) [#/Vol]on 11-59-4291Ekynacillbi (Bld) [#/Vol]Neutrophils [#/volume] in Blood by Automated count1.4-6.5FZanesville City Hospital Neutrophils/100 WBC Auto (Bld)on 61-72-5726Zpexvxuoqkm/100 WBC (Bld)Automated neutrophil %43.0-75.0[facility] HospitalNo Panel Informationon 56-21-5753Crhqrootyee # (Auto)0.1 10 3/uL0.0-0.7FZanesville City HospitalImmature Granulocyte # (Auto)0.01 10 3/uL0.00-0.03[facility]2855.0 pg/mLCritically high<=1800.0[facility]8.3FZanesville City Hospital0.1 10 3/uL0.0-0.7FZanesville City Hospital26.0 mg/dLHigh7.0-18.0[facility]8.5 mg/dL 8.5-10.1FZanesville City Hospital102 mmol/S94-863IkphhzansOhio State East Hospital25.4 mmol/L21.0-32.0[facility]0.01 10 3/uL 0.00-0.03[facility]3.14 mg/dLHigh0.55-1.02[facility]0.1 %0.0-0.5FZanesville City Hospital17Low>=60 mL/min/1.73m 2FZanesville City Hospital235 mg/rHBqoc53-504TqnvhukveOhio State East Hospital3.6 mmol/L3.5-5.1FZanesville City Hospital139 mmol/W726-013OsxntimmnOhio State East HospitalPlatelet mean volume Auto (Bld) [Entitic vol]on 93-96-4317Ogsiymlw mean volume (Bld) [Entitic vol]Platelet mean volume [Entitic volume] in Blood by Automated count9.5-13.5FZanesville City HospitalPlatelets Auto (Bld) [#/Vol]on 96-22-8064Wgticiplo (Bld) [#/Vol] Platelets [#/volume] in Blood by Automated -068UyputewcoOhio State East HospitalRBC Auto (Bld) [#/Vol]on 53-56-3527PNI (Bld) [#/Vol]Erythrocytes [#/volume] in Blood by Automated countLow4.20-5.40[facility] Hospitalerum or plasma anion gap determinationon 33-78-7306Iwyzp gap [Moles/Vol] Serum or plasma anion gap determinationOhio State East Hospital Basophils Auto (Bld) [#/Vol]on 04-87-0851Dwycswxed (Bld) [#/Vol]Automated basophil count0.0-0.1FZanesville City HospitalBasophils/100 WBC Auto (Bld)on 90-04-9491Jdtdonmta/100 WBC (Bld)Automated basophil %0.2-2.0[facility] HospitalEosinophils/100 WBC Auto (Bld)on 11-22-2024 Eosinophils/100 WBC (Bld)Automated eosinophil %0.9-7.0[facility] HospitalErythrocyte distribution width Auto (RBC) [Ratio]on 91-99-6836Uvyswvsmnlx distribution width (RBC) [Ratio]Erythrocyte distribution width [Ratio] by Automated count11.0-15.0[facility] HospitalEstimated glomerular filtration rate (GFR) non- Americanon 48-66-5151RWX/1.73 sq M.predicted among non-blacks MDRD (S/P/Bld) [Vol rate/Area]Estimated glomerular filtration rate (GFR) non- AmericanLow>=60 mL/min/1.73m 2FZanesville City HospitalGlobulin Calc (S) [Mass/Vol]on 53-21-4687Lnrnjojq (S) [Mass/Vol]Serum globulin measurement by calculation (mass/volume)[facility] HospitalHematocrit Auto (Bld) [Volume fraction]on 18-90-1334Wwvfojdzlb (Bld) [Volume fraction]Hematocrit [Volume Fraction] of Blood by Automated count 36.0-48.0[facility] HospitalHemoglobin [Mass/volume] in Bloodon 23-95-4418Yepufkryxo (Bld) [Mass/Vol]Hemoglobin [Mass/volume] in BloodLow 12.0-16.0[facility] HospitalLaboratory - Chemistry and Chemistry - challengeon 30-17-0502Joxkfip [Mass/Vol]3.1 g/dLLow3.4-5.0[facility] HospitalALP [Catalytic activity/Vol]123 U/ORkqp69-035ObdfslivxOhio State East HospitalALT [Catalytic activity/Vol]11 U/MAhj82-69KgoplmnrrOhio State East HospitalAST [Catalytic activity/Vol]12 U/GCxy77-60KmgpaejyjOhio State East HospitalBilirubin [Mass/Vol]0.8 mg/dL0.2-1.0[facility] HospitalCalcium [Mass/Vol]8.6 mg/dL8.5-10.1FZanesville City Hospital Chloride [Moles/Vol]108 mmol/QJufm20-732AayyqygjzOhio State East HospitalCO2 [Moles/Vol]24.5 mmol/L21.0-32.0[facility] HospitalCreatinine [Mass/Vol]2.36 mg/dLHigh0.55-1.02[facility] HospitalGFR/1.73 sq M.predicted MDRD (S/P/Bld) [Vol rate/Area]24 mL/min/{1.73_m2}Low>=60 mL/min/1.73m 2FZanesville City HospitalGlucose [Mass/Vol]126 mg/dLHigh 74-106[facility] HospitalMagnesium [Mass/Vol]2.1 mg/dL1.8-2.4 [facility] HospitalPotassium [Moles/Vol]3.8 mmol/L3.5-5.1FZanesville City HospitalProtein [Mass/Vol]6.6 g/dL6.4-8.2FCleveland Clinic Fairview Hospitalodium [Moles/Vol]144 mmol/A422-638NittqoakxOhio State East HospitalUrea nitrogen [Mass/Vol]18.0 mg/dL7.0-18.0[facility] HospitalUrea nitrogen/Creatinine [Mass ratio]7.6 mg/mgOhio State East HospitalLaboratory - Hematology and Cell countson 68-50-3894Obrqhqjj granulocytes/100 WBC (Bld)0.3 %0.0-0.5FZanesville City Hospital Leukocytes [#/volume] corrected for nucleated erythrocytes in Blood by Automated counon 44-78-9900CCS corrected for nucl RBC Auto (Bld) [#/Vol]Leukocytes [#/volume] corrected for nucleated erythrocytes in Blood by Automated coun 4.0-11.0[facility] HospitalLymphocytes Auto (Bld) [#/Vol]on 23-22-3599Merwidxxjik (Bld) [#/Vol]Lymphocytes [#/volume] in Blood by Automated count1.2-3.8[facility] HospitalLymphocytes/100 WBC Auto (Bld)on 01-31-3363Hogkpmxofuo/100 WBC (Bld)Lymphocytes/100 leukocytes in Blood by Automated count20.5-60.0[facility] HospitalH Auto (RBC) [Entitic mass]on 25-11-6903PUS (RBC) [Entitic mass]MCH [Entitic mass] by Automated count 26.7-34.0[facility] HospitalMCHC Auto (RBC) [Mass/Vol]on 09-60-2307ZCAW (RBC) [Mass/Vol]MCHC [Mass/volume] by Automated count29.9-35.2 [facility] HospitalMCV Auto (RBC) [Entitic vol]on 91-52-9660RMA (RBC) [Entitic vol]MCV [Entitic volume] by Automated count81.0-99.0[facility] HospitalMonocytes Auto (Bld) [#/Vol]on 98-78-3318Krmzmcmoq (Bld) [#/Vol]Automated blood monocyte count0.3-0.8[facility] Monocytes/100 WBC Auto (Bld)on 30-62-2081Gomhfvrth/100 WBC (Bld)Automated monocyte %1.7-12.0[facility] HospitalNeutrophils Auto (Bld) [#/Vol]on 59-36-9253Eepkymwfdhi (Bld) [#/Vol]Neutrophils [#/volume] in Blood by Automated count1.4-6.5FZanesville City HospitalNeutrophils/100 WBC Auto (Bld)on 03-05-4236Bckpsopgnge/100 WBC (Bld)Automated neutrophil %43.0-75.0 [facility] HospitalNo Panel Informationon 24-08-4522Ajkcyjgefam # (Auto)0.1 10 3/uL0.0-0.7FZanesville City HospitalImmature Granulocyte # (Auto)0.02 10 3/uL0.00-0.03[facility] HospitalTroponin I High Sensitivity6.6 pg/mL4.0-51.3FZanesville City HospitalComment on above: CUT-OFF POINTS HAVE BEEN [...] IN CONJUNCTIONWITH OTHER DIAGNOSTIC AND CLINICAL INFORMATION.6.6 pg/mL4.0-51.3FZanesville City Hospital2.1 mg/dL 1.8-2.4FZanesville City Hospital0.1 10 3/uL0.0-0.7FZanesville City Hospital3.1 g/dLLow3.4-5.0[facility]123 U/LHigh 46-116[facility]11 U/ZBke58-07ZscsffwbhOhio State East Hospital12 U/JOwl97-15ChbgnwljeOhio State East Hospital0.02 10 3/uL0.00-0.03 [facility]7.6FZanesville City Hospital0.3 % 0.0-0.5FZanesville City Hospital18.0 mg/dL7.0-18.0[facility]8.6 mg/dL8.5-10.1FZanesville City Hospital108 mmol/LHigh 98-107[facility]24.5 mmol/L21.0-32.0[facility]2.36 mg/dLHigh0.55-1.02[facility]24Low>=60 mL/min/1.73m 2FZanesville City Hospital126 mg/uHOrbv89-443BatetltryOhio State East Hospital3.8 mmol/L3.5-5.1FZanesville City Hospital144 mmol/Z008-334BlhksbmchOhio State East Hospital0.8 mg/dL0.2-1.0[facility]6.6 g/dL6.4-8.2FZanesville City HospitalPlatelet mean volume Auto (Bld) [Entitic vol]on 96-98-5014Cswutjeh mean volume (Bld) [Entitic vol]Platelet mean volume [Entitic volume] in Blood by Automated count9.5-13.5 [facility] HospitalPlatelets Auto (Bld) [#/Vol]on 11-22-2024 Platelets (Bld) [#/Vol]Platelets [#/volume] in Blood by Automated pzqet823-934 [facility] HospitalRBC Auto (Bld) [#/Vol]on 65-97-1773CEO (Bld) [#/Vol]Erythrocytes [#/volume] in Blood by Automated countLow4.20-5.40[facility] Hospitalerum or plasma albumin/globulin mass ratioon 11-22-2024 Albumin/Globulin [Mass ratio]Serum or plasma albumin/globulin mass ratio [facility] Hospitalerum or plasma anion gap determinationon 39-46-7081Aalkh gap [Moles/Vol]Serum or plasma anion gap determinationOhio State East HospitalBasophils Auto (Bld) [#/Vol]on 63-90-5686Gbymnkrgy (Bld) [#/Vol]Automated basophil count0.0-0.1FZanesville City Hospital Basophils/100 WBC Auto (Bld)on 14-95-0144Gzbunwqjs/100 WBC (Bld)Automated basophil %0.2-2.0[facility] HospitalEosinophils/100 WBC Auto (Bld) on 10-28-7564Nlsmhxtqgeh/100 WBC (Bld)Automated eosinophil %0.9-7.0[facility] HospitalErythrocyte distribution width Auto (RBC) [Ratio]on 31-62-0905Xnxtulxanef distribution width (RBC) [Ratio]Erythrocyte distribution width [Ratio] by Automated count11.0-15.0[facility] Estimated glomerular filtration rate (GFR) non- Americanon 11-21-2024 GFR/1.73 sq M.predicted among non-blacks MDRD (S/P/Bld) [Vol rate/Area]Estimated glomerular filtration rate (GFR) non- AmericanLow>=60 mL/min/1.73m 2 [facility] HospitalGlobulin Calc (S) [Mass/Vol]on 11-21-2024 Globulin (S) [Mass/Vol]Serum globulin measurement by calculation (mass/volume) [facility] HospitalHematocrit Auto (Bld) [Volume fraction]on 48-99-5348Mfimbumokj (Bld) [Volume fraction]Hematocrit [Volume Fraction] of Blood by Automated count36.0-48.0[facility] HospitalHemoglobin [Mass/volume] in Bloodon 82-31-7092Ukgimwyhii (Bld) [Mass/Vol]Hemoglobin [Mass/volume] in UsbfhDvq83.0-16.0[facility] Hemoglobin.gastrointestinal [Presence] in Stoolon 11-21-2024 Hemoglobin.gastrointestinal Ql (Stl)Hemoglobin.gastrointestinal [Presence] in StoolOhio State East HospitalINR in Platelet poor plasma by Coagulation assayon 79-85-9019MUE Coag (PPP) [Relative time]INR in Platelet poor plasma by Coagulation assayOhio State East HospitalComment on above:DESIRED INR:2.0-3.0 CONDITIONS NOT LISTED BELOW2.5-3.5 FOR PROSTHETIC HEART VALVE REPLACEMENT2.5-3.5 RECURRENT THROMBOSISLaboratory - Chemistry and Chemistry - challengeon 06-87-0987Owjciwj [Mass/Vol]3.0 g/dLLow3.4-5.0[facility] HospitalALP [Catalytic activity/Vol]124 U/FUsou26-921NrnwqhmriOhio State East HospitalALT [Catalytic activity/Vol]12 U/BLlj15-75MnroowtswOhio State East HospitalAST [Catalytic activity/Vol]14 U/DFcl76-30LvztouxmxOhio State East HospitalBilirubin [Mass/Vol]0.5 mg/dL0.2-1.0[facility] HospitalCalcium [Mass/Vol]8.3 mg/dLLow8.5-10.1FZanesville City Hospital Chloride [Moles/Vol]110 mmol/NWraa33-665LvodjstjkOhio State East HospitalCO2 [Moles/Vol]22.7 mmol/L21.0-32.0[facility] HospitalCreatinine [Mass/Vol]2.36 mg/dLHigh0.55-1.02[facility] HospitalGFR/1.73 sq M.predicted MDRD (S/P/Bld) [Vol rate/Area]24 mL/min/{1.73_m2}Low>=60 mL/min/1.73m 2FZanesville City HospitalGlucose [Mass/Vol]151 mg/dLHigh 74-106[facility] HospitalNatriuretic peptide B (Bld) [Mass/Vol] 2945.0 pg/mLCritically high<=1800.0[facility] HospitalComment on above:RESULTS CALLED TO FLAKO KEYES,PAPotassium [Moles/Vol]4.5 mmol/L3.5-5.1 [facility] HospitalProtein [Mass/Vol]6.6 g/dL6.4-8.2FCleveland Clinic Fairview Hospitalodium [Moles/Vol]143 mmol/P392-533YznonlcwdOhio State East HospitalUrea nitrogen [Mass/Vol]17.0 mg/dL7.0-18.0[facility] HospitalUrea nitrogen/Creatinine [Mass ratio]7.2 mg/mgOhio State East HospitalLaboratory - Hematology and Cell countson 51-84-5817Msvsejlf granulocytes/100 WBC (Bld)0.4 %0.0-0.5FZanesville City Hospital Laboratory - Microbiology and Antimicrobial susceptibilityon 11-21-2024 SARS-CoV-2 (COVID-19) RNA RADHA+probe Ql (Unsp spec)NegativeNEGATIVEOhio State East HospitalComment on above:This test has not been [...] diagnosis of Covid-19 under section 564(b)(1) of the[facility], [place] 360bbb-3(b)(1), unless the declaration isterminated or authorization is revoked sooner.Leukocytes [#/volume] corrected for nucleated erythrocytes in Blood by Automated counon 91-89-0779LUS corrected for nucl RBC Auto (Bld) [#/Vol]Leukocytes [#/volume] corrected for nucleated erythrocytes in Blood by Automated coun4.0-11.0[facility] HospitalLymphocytes Auto (Bld) [#/Vol]on 52-56-8449Nhqjccjlruq (Bld) [#/Vol]Lymphocytes [#/volume] in Blood by Automated count1.2-3.8[facility] HospitalLymphocytes/100 WBC Auto (Bld)on 11-21-2024 Lymphocytes/100 WBC (Bld)Lymphocytes/100 leukocytes in Blood by Automated count 20.5-60.0[facility] HospitalH Auto (RBC) [Entitic mass]on 89-50-2343XKX (RBC) [Entitic mass]MCH [Entitic mass] by Automated count26.7-34.0 [facility] HospitalMCHC Auto (RBC) [Mass/Vol]on 32-65-2480CHXC (RBC) [Mass/Vol]MCHC [Mass/volume] by Automated count29.9-35.2FZanesville City HospitalMCV Auto (RBC) [Entitic vol]on 70-27-3858NRQ (RBC) [Entitic vol] MCV [Entitic volume] by Automated count81.0-99.0[facility] HospitalMonocytes Auto (Bld) [#/Vol]on 87-09-7081Wcxwzzlny (Bld) [#/Vol]Automated blood monocyte count0.3-0.8[facility] HospitalMonocytes/100 WBC Auto (Bld)on 60-51-7517Bjclgffqm/100 WBC (Bld)Automated monocyte %1.7-12.0 [facility] HospitalNeutrophils Auto (Bld) [#/Vol]on 11-21-2024 Neutrophils (Bld) [#/Vol]Neutrophils [#/volume] in Blood by Automated count 1.4-6.5FZanesville City HospitalNeutrophils/100 WBC Auto (Bld)on 73-97-6711Wtxbqmopcyq/100 WBC (Bld)Automated neutrophil %43.0-75.0[facility] HospitalNo Panel Informationon 48-46-3979Syyyqdr Influenza Type A AntigenNegativeOhio State East HospitalComment on above:Negative for Flu A protein antigen. Infection due to Flu Acannot be ruled out. Flu A antigen in thesample may bebelow the detection limit of the test.Bedside Influenza Type B AntigenNegativeOhio State East HospitalComment on above:Negative for Flu B protein antigen. Infection due to Flu Bcannot be ruled out. Flu B antigen in thesample may bebelow the detection limit of the test.NegativeOhio State East HospitalEosinophils # (Auto)0.1 10 3/uL0.0-0.7FZanesville City HospitalImmature Granulocyte # (Auto)0.03 10 3/uL0.00-0.03[facility] HospitalTroponin I High Sensitivity<4.0 pg/mLLow4.0-51.3FZanesville City HospitalComment on above:CUT-OFF POINTS HAVE BEEN ESTABLISHED [...] OTHER DIAGNOSTIC AND CLINICAL INFORMATION.2945.0 pg/mL Critically high<=1800.0[facility]<4.0 pg/mLLow4.0-51.3 [facility]0.1 10 3/uL0.0-0.7FZanesville City Hospital3.0 g/dLLow3.4-5.0[facility]124 U/WXggk29-630 [facility]12 U/GOnv32-58WidfxhipgOhio State East Hospital 14 U/UDjp41-15LxtltpbieOhio State East Hospital0.03 10 3/uL0.00-0.03[facility]7.2FZanesville City Hospital0.4 %0.0-0.5FZanesville City Hospital17.0 mg/dL7.0-18.0[facility]8.3 mg/dLLow8.5-10.1FZanesville City Hospital110 mmol/XEgci11-063TuuelledkOhio State East Hospital22.7 mmol/L21.0-32.0[facility]2.36 mg/dLHigh0.55-1.02[facility]24Low>=60 mL/min/1.73m 2 [facility]151 mg/jTVtoz74-065BagupwphtOhio State East Hospital4.5 mmol/L3.5-5.1FZanesville City Hospital143 mmol/D548-388 [facility]0.5 mg/dL0.2-1.0[facility]6.6 g/dL6.4-8.2FZanesville City HospitalPlatelet mean volume Auto (Bld) [Entitic vol]on 63-27-8858Msznzrax mean volume (Bld) [Entitic vol]Platelet mean volume [Entitic volume] in Blood by Automated count9.5-13.5FZanesville City HospitalPlatelets Auto (Bld) [#/Vol]on 17-90-8099Ttwtyankj (Bld) [#/Vol]Platelets [#/volume] in Blood by Automated sqiae056-056PccsrmecfOhio State East HospitalProthrombin time (PT)on 76-40-2147NB Coag (PPP) [Time]Prothrombin time (PT)9.0-11.6FZanesville City HospitalRBC Auto (Bld) [#/Vol]on 17-44-6132EPK (Bld) [#/Vol]Erythrocytes [#/volume] in Blood by Automated count Low4.20-5.40[facility] Hospitalerum or plasma albumin/globulin mass ratioon 98-17-1957Knlqwfw/Globulin [Mass ratio]Serum or plasma albumin/globulin mass ratioTrumbull Memorial Hospitalerum or plasma anion gap determinationon 17-17-6437Xgapn gap [Moles/Vol]Serum or plasma anion gap determinationOhio State East HospitalBasophils Auto (Bld) [#/Vol]on 56-77-6610Eqeoafdcb (Bld) [#/Vol]Automated basophil count0.0-0.1FZanesville City HospitalBasophils/100 WBC Auto (Bld)on 98-24-2124Akwscdhav/100 WBC (Bld)Automated basophil %0.2-2.0[facility] Eosinophils/100 WBC Auto (Bld)on 11-35-8037Arnkqanrbux/100 WBC (Bld)Automated eosinophil %0.9-7.0[facility] HospitalErythrocyte distribution width Auto (RBC) [Ratio]on 32-46-8246Xnzwhnuvhie distribution width (RBC) [Ratio]Erythrocyte distribution width [Ratio] by Automated eydefKwwj16.0-15.0 [facility] HospitalEstimated glomerular filtration rate (GFR) non- Americanon 70-93-9171OYY/1.73 sq M.predicted among non-blacks MDRD (S/P/Bld) [Vol rate/Area]Estimated glomerular filtration rate (GFR) non- AmericanLow>=60 mL/min/1.73m 2FZanesville City HospitalGlobulin Calc (S) [Mass/Vol]on 81-77-7340Rlnrwxoq (S) [Mass/Vol]Serum globulin measurement by calculation (mass/volume)[facility] HospitalHematocrit Auto (Bld) [Volume fraction]on 04-40-4506Pzzlzukvbf (Bld) [Volume fraction]Hematocrit [Volume Fraction] of Blood by Automated jmlovApw55.0-48.0[facility] HospitalHemoglobin [Mass/volume] in Bloodon 60-24-6688Urdtwuxkrq (Bld) [Mass/Vol]Hemoglobin [Mass/volume] in ArucbQmh35.0-16.0[facility] HospitalLaboratory - Chemistry and Chemistry - challengeon 10-14-2024 Albumin [Mass/Vol]2.5 g/dLLow3.4-5.0[facility] HospitalALP [Catalytic activity/Vol]79 U/K62-070UgzezyibvOhio State East HospitalALT [Catalytic activity/Vol]18 U/F91-60ZiiozmigdOhio State East HospitalAST [Catalytic activity/Vol]15 U/T11-75JrfgriezmOhio State East HospitalBilirubin [Mass/Vol]0.6 mg/dL0.2-1.0[facility] HospitalCalcium [Mass/Vol]8.4 mg/dLLow8.5-10.1FZanesville City HospitalChloride [Moles/Vol]113 mmol/L Ello34-603SbxbfnoezOhio State East HospitalCO2 [Moles/Vol]20.4 mmol/LLow 21.0-32.0[facility] HospitalCreatinine [Mass/Vol]2.73 mg/dLHigh 0.55-1.02[facility] HospitalGFR/1.73 sq M.predicted MDRD (S/P/Bld) [Vol rate/Area]20 mL/min/{1.73_m2}Low>=60 mL/min/1.73m 2FZanesville City HospitalGlucose [Mass/Vol]142 mg/jXWesr43-256CwsltgjozOhio State East HospitalPotassium [Moles/Vol]4.3 mmol/L3.5-5.1FZanesville City Hospital Protein [Mass/Vol]5.4 g/dLLow6.4-8.2FCleveland Clinic Fairview Hospitalodium [Moles/Vol]143 mmol/Y749-627HimycypieOhio State East HospitalUrea nitrogen [Mass/Vol]37.0 mg/dLHigh7.0-18.0[facility] HospitalUrea nitrogen/Creatinine [Mass ratio]13.6 mg/mgOhio State East Hospital Laboratory - Hematology and Cell countson 97-70-0635Aaszozam granulocytes/100 WBC (Bld)0.4 %0.0-0.5FZanesville City HospitalLeukocytes [#/volume] corrected for nucleated erythrocytes in Blood by Automated counon 88-43-0806ZPJ corrected for nucl RBC Auto (Bld) [#/Vol]Leukocytes [#/volume] corrected for nucleated erythrocytes in Blood by Automated coun4.0-11.0[facility] HospitalLymphocytes Auto (Bld) [#/Vol]on 70-38-9761Zpyyukipivr (Bld) [#/Vol]Lymphocytes [#/volume] in Blood by Automated count1.2-3.8[facility] HospitalLymphocytes/100 WBC Auto (Bld)on 10-14-2024 Lymphocytes/100 WBC (Bld)Lymphocytes/100 leukocytes in Blood by Automated count 20.5-60.0[facility] HospitalH Auto (RBC) [Entitic mass]on 76-77-7964EVF (RBC) [Entitic mass]MCH [Entitic mass] by Automated count26.7-34.0 [facility] HospitalMCHC Auto (RBC) [Mass/Vol]on 84-44-0310SKUV (RBC) [Mass/Vol]MCHC [Mass/volume] by Automated count29.9-35.2FZanesville City HospitalMCV Auto (RBC) [Entitic vol]on 13-57-9497IHN (RBC) [Entitic vol] MCV [Entitic volume] by Automated count81.0-99.0[facility] HospitalMonocytes Auto (Bld) [#/Vol]on 82-75-4942Qdrjjorck (Bld) [#/Vol]Automated blood monocyte count0.3-0.8[facility] HospitalMonocytes/100 WBC Auto (Bld)on 33-85-8800Tqfqowlvs/100 WBC (Bld)Automated monocyte %1.7-12.0 [facility] HospitalMultiple labson 60-64-5004FmzYamwyc Health SystemNeutrophils Auto (Bld) [#/Vol]on 66-90-8405Xqbodnlknlx (Bld) [#/Vol] Neutrophils [#/volume] in Blood by Automated count1.4-6.5FZanesville City HospitalNeutrophils/100 WBC Auto (Bld)on 41-33-6430Ncfbfrqcbam/100 WBC (Bld)Automated neutrophil %43.0-75.0[facility] HospitalNo Panel Informationon 54-89-3373Ttsqiywzqxc # (Auto)0.1 10 3/uL0.0-0.7FZanesville City HospitalImmature Granulocyte # (Auto)0.03 10 3/uL0.00-0.03[facility]0.1 10 3/uL0.0-0.7FZanesville City Hospital0.03 10 3/uL0.00-0.03[facility]0.4 %0.0-0.5FZanesville City Hospital2.5 g/dLLow3.4-5.0[facility]79 U/L46-116 [facility]18 U/S45-85RpjphanncOhio State East Hospital15 U/A46-65UsjzlsnirOhio State East Hospital13.6FZanesville City Hospital 37.0 mg/dLHigh7.0-18.0[facility]8.4 mg/dLLow8.5-10.1 [facility]113 mmol/RAtnt42-471LkyouwywfOhio State East Hospital20.4 mmol/LLow21.0-32.0[facility]2.73 mg/dLHigh 0.55-1.02[facility]20Low>=60 mL/min/1.73m 2FZanesville City Hospital142 mg/fLNqdf99-319HwybkpisdOhio State East Hospital4.3 mmol/L3.5-5.1FZanesville City Hospital143 mmol/V284-773VwlfaohqjOhio State East Hospital0.6 mg/dL0.2-1.0[facility]5.4 g/dL Low6.4-8.2FZanesville City HospitalPlatelet mean volume Auto (Bld) [Entitic vol]on 85-08-5318Pyzzdprb mean volume (Bld) [Entitic vol]Platelet mean volume [Entitic volume] in Blood by Automated count9.5-13.5FZanesville City HospitalPlatelets Auto (Bld) [#/Vol]on 48-06-6348Ugkmzitqb (Bld) [#/Vol] Platelets [#/volume] in Blood by Automated xgizeZcl982-594DtxqvopxxOhio State East HospitalRBC Auto (Bld) [#/Vol]on 07-52-5604OUA (Bld) [#/Vol]Erythrocytes [#/volume] in Blood by Automated countLow4.20-5.40[facility] Hospitalerum or plasma albumin/globulin mass ratioon 77-57-4330Hjmiceu/Globulin [Mass ratio]Serum or plasma albumin/globulin mass ratioTrumbull Memorial Hospitalerum or plasma anion gap determinationon 71-99-0300Strrv gap [Moles/Vol]Serum or plasma anion gap determinationOhio State East HospitalBasophils Auto (Bld) [#/Vol]on 05-48-3046Aduougfwt (Bld) [#/Vol]Automated basophil count0.0-0.1FZanesville City HospitalBasophils/100 WBC Auto (Bld)on 64-47-2992Vvkwfwdkq/100 WBC (Bld)Automated basophil %0.2-2.0[facility] HospitalEosinophils/100 WBC Auto (Bld)on 10-13-2024 Eosinophils/100 WBC (Bld)Automated eosinophil %0.9-7.0[facility] HospitalErythrocyte distribution width Auto (RBC) [Ratio]on 09-58-1164Exqrwijppay distribution width (RBC) [Ratio]Erythrocyte distribution width [Ratio] by Automated aanarOiiw58.0-15.0[facility] HospitalEstimated glomerular filtration rate (GFR) non- Americanon 19-86-1125GSX/1.73 sq M.predicted among non-blacks MDRD (S/P/Bld) [Vol rate/Area]Estimated glomerular filtration rate (GFR) non- AmericanLow>=60 mL/min/1.73m 2FZanesville City HospitalGlobulin Calc (S) [Mass/Vol]on 56-86-9299Txxtvfwp (S) [Mass/Vol]Serum globulin measurement by calculation (mass/volume)[facility] HospitalHematocrit Auto (Bld) [Volume fraction]on 10-13-2024 Hematocrit (Bld) [Volume fraction]Hematocrit [Volume Fraction] of Blood by Automated uwfpzTst88.0-48.0[facility] HospitalHemoglobin [Mass/volume] in Bloodon 75-78-8300Ojhmcmbint (Bld) [Mass/Vol]Hemoglobin [Mass/volume] in OmsxkBrw60.0-16.0[facility] HospitalLaboratory - Chemistry and Chemistry - challengeon 49-23-4951Upyazhp [Mass/Vol]2.6 g/dLLow 3.4-5.0[facility] HospitalALP [Catalytic activity/Vol]75 U/L46-116 [facility] HospitalALT [Catalytic activity/Vol]15 U/L14-59 [facility] HospitalAST [Catalytic activity/Vol]12 U/QOxt74-62 [facility] HospitalBilirubin [Mass/Vol]0.8 mg/dL0.2-1.0[facility] HospitalCalcium [Mass/Vol]7.9 mg/dLLow8.5-10.1FZanesville City HospitalChloride [Moles/Vol]112 mmol/WSdsw56-767LbhhcapnhOhio State East HospitalCO2 [Moles/Vol]22.5 mmol/L21.0-32.0[facility] Creatinine [Mass/Vol]2.77 mg/dLHigh0.55-1.02[facility] GFR/1.73 sq M.predicted MDRD (S/P/Bld) [Vol rate/Area]20 mL/min/{1.73_m2}Low>=60 mL/min/1.73m 2FZanesville City HospitalGlucose [Mass/Vol]138 mg/dLHigh 74-106[facility] HospitalPotassium [Moles/Vol]4.5 mmol/L3.5-5.1 [facility] HospitalProtein [Mass/Vol]5.4 g/dLLow6.4-8.2FCleveland Clinic Fairview Hospitalodium [Moles/Vol]145 mmol/A061-775UsewufcmxOhio State East HospitalUrea nitrogen [Mass/Vol]49.0 mg/dLHigh7.0-18.0[facility] HospitalUrea nitrogen/Creatinine [Mass ratio]17.7 mg/mgOhio State East HospitalLaboratory - Hematology and Cell countson 52-60-6992Tjkimssp granulocytes/100 WBC (Bld)0.5 %0.0-0.5FZanesville City Hospital Leukocytes [#/volume] corrected for nucleated erythrocytes in Blood by Automated counon 87-03-7294XYY corrected for nucl RBC Auto (Bld) [#/Vol]Leukocytes [#/volume] corrected for nucleated erythrocytes in Blood by Automated coun 4.0-11.0[facility] HospitalLymphocytes Auto (Bld) [#/Vol]on 47-60-8924Umipfbprlpp (Bld) [#/Vol]Lymphocytes [#/volume] in Blood by Automated count1.2-3.8[facility] HospitalLymphocytes/100 WBC Auto (Bld)on 94-47-4994Jwvjwmwwuiq/100 WBC (Bld)Lymphocytes/100 leukocytes in Blood by Automated count20.5-60.0[facility] HospitalH Auto (RBC) [Entitic mass]on 25-68-9639CFV (RBC) [Entitic mass]MCH [Entitic mass] by Automated count 26.7-34.0[facility] HospitalMCHC Auto (RBC) [Mass/Vol]on 26-41-5215VGFI (RBC) [Mass/Vol]MCHC [Mass/volume] by Automated count29.9-35.2 [facility] HospitalMCV Auto (RBC) [Entitic vol]on 84-23-2761YZB (RBC) [Entitic vol]MCV [Entitic volume] by Automated count81.0-99.0[facility] HospitalMonocytes Auto (Bld) [#/Vol]on 45-32-1684Gdafrfhvf (Bld) [#/Vol]Automated blood monocyte count0.3-0.8[facility] Monocytes/100 WBC Auto (Bld)on 64-36-2847Cofncgxil/100 WBC (Bld)Automated monocyte %1.7-12.0[facility] HospitalNeutrophils Auto (Bld) [#/Vol]on 72-64-2341Ahquhdnpvmh (Bld) [#/Vol]Neutrophils [#/volume] in Blood by Automated count1.4-6.5FZanesville City HospitalNeutrophils/100 WBC Auto (Bld)on 59-92-9787Farpdmbqpwm/100 WBC (Bld)Automated neutrophil %43.0-75.0 [facility] HospitalNo Panel Informationon 79-23-9991Uiirtyqqpmm # (Auto)0.1 10 3/uL0.0-0.7FZanesville City HospitalImmature Granulocyte # (Auto)0.04 10 3/uLHigh0.00-0.03[facility]0.1 10 3/uL 0.0-0.7FZanesville City Hospital2.6 g/dLLow3.4-5.0[facility]75 U/G53-026YhlreblavOhio State East Hospital15 U/O76-80VcptueklnOhio State East Hospital12 U/EVwe46-72GaekhmkwuOhio State East Hospital0.04 10 3/uLHigh0.00-0.03[facility]17.7FZanesville City Hospital0.5 %0.0-0.5FZanesville City Hospital49.0 mg/dLHigh7.0-18.0 [facility]7.9 mg/dLLow8.5-10.1FZanesville City Hospital112 mmol/QUqsf89-965TianxwjpdOhio State East Hospital22.5 mmol/L21.0-32.0 [facility]2.77 mg/dLHigh0.55-1.02[facility]20Low>=60 mL/min/1.73m 2FZanesville City Hospital138 mg/dL Zfps07-490EqroeabjbOhio State East Hospital4.5 mmol/L3.5-5.1FZanesville City Hospital145 mmol/A810-410SuxjeddgnOhio State East Hospital0.8 mg/dL0.2-1.0 [facility]5.4 g/dLLow6.4-8.2FZanesville City HospitalPlatelet mean volume Auto (Bld) [Entitic vol]on 97-83-2762Duvbqdlc mean volume (Bld) [Entitic vol]Platelet mean volume [Entitic volume] in Blood by Automated count9.5-13.5FZanesville City HospitalPlatelets Auto (Bld) [#/Vol]on 56-22-9093Zafngtfiu (Bld) [#/Vol]Platelets [#/volume] in Blood by Automated tcbud841-415EinvgqyjoOhio State East HospitalRBC Auto (Bld) [#/Vol]on 00-19-9047KGQ (Bld) [#/Vol]Erythrocytes [#/volume] in Blood by Automated count Low4.20-5.40[facility] Hospitalerum or plasma albumin/globulin mass ratioon 45-95-3746Perxtla/Globulin [Mass ratio]Serum or plasma albumin/globulin mass ratioTrumbull Memorial Hospitalerum or plasma anion gap determinationon 87-68-1578Izxkl gap [Moles/Vol]Serum or plasma anion gap determinationOhio State East HospitalBasophils Auto (Bld) [#/Vol]on 58-50-6720Krpxmiijn (Bld) [#/Vol]Automated basophil count0.0-0.1FZanesville City HospitalBasophils/100 WBC Auto (Bld)on 84-43-8076Okinhtiyc/100 WBC (Bld)Automated basophil %0.2-2.0[facility] Eosinophils/100 WBC Auto (Bld)on 88-09-5279Mbydqchbkxa/100 WBC (Bld)Automated eosinophil %0.9-7.0[facility] HospitalErythrocyte distribution width Auto (RBC) [Ratio]on 56-37-3764Gcvaszcgakl distribution width (RBC) [Ratio]Erythrocyte distribution width [Ratio] by Automated count11.0-15.0 [facility] HospitalEstimated glomerular filtration rate (GFR) non- Americanon 31-10-0478VVH/1.73 sq M.predicted among non-blacks MDRD (S/P/Bld) [Vol rate/Area]Estimated glomerular filtration rate (GFR) non- AmericanLow>=60 mL/min/1.73m 2FZanesville City HospitalGlobulin Calc (S) [Mass/Vol]on 17-50-7240Gxsprixm (S) [Mass/Vol]Serum globulin measurement by calculation (mass/volume)[facility] HospitalHematocrit Auto (Bld) [Volume fraction]on 02-76-2464Peeypwoyey (Bld) [Volume fraction]Hematocrit [Volume Fraction] of Blood by Automated count36.0-48.0[facility] HospitalHemoglobin [Mass/volume] in Bloodon 31-42-1474Mcbpretpyg (Bld) [Mass/Vol] Hemoglobin [Mass/volume] in UzfdlPqs18.0-16.0[facility] Laboratory - Chemistry and Chemistry - challengeon 97-56-2168Crdfhrz [Mass/Vol] 2.3 g/dLLow3.4-5.0[facility] HospitalALP [Catalytic activity/Vol] 66 U/Z19-562IrbnxastvOhio State East HospitalALT [Catalytic activity/Vol]13 U/L Fjw22-07EwipaywozOhio State East HospitalAST [Catalytic activity/Vol]10 U/LLow 15-37[facility] HospitalBilirubin [Mass/Vol]0.3 mg/dL0.2-1.0 [facility] HospitalCalcium [Mass/Vol]8.1 mg/dLLow8.5-10.1FZanesville City HospitalChloride [Moles/Vol]112 mmol/VMxjj06-663LvzziysrqOhio State East HospitalCO2 [Moles/Vol]22.7 mmol/L21.0-32.0[facility] HospitalCreatinine [Mass/Vol]3.09 mg/dLHigh0.55-1.02[facility] HospitalGFR/1.73 sq M.predicted MDRD (S/P/Bld) [Vol rate/Area]18 mL/min/{1.73_m2}Low>=60 mL/min/1.73m 2FZanesville City HospitalGlucose [Mass/Vol]138 mg/sRJkvi44-537MwsnzbfnuOhio State East HospitalPotassium [Moles/Vol]4.7 mmol/L3.5-5.1FZanesville City HospitalProtein [Mass/Vol] 4.9 g/dLLow6.4-8.2FCleveland Clinic Fairview Hospitalodium [Moles/Vol]144 mmol/L 136-145[facility] HospitalUrea nitrogen [Mass/Vol]69.0 mg/dLHigh 7.0-18.0[facility] HospitalUrea nitrogen/Creatinine [Mass ratio] 22.3 mg/mgOhio State East HospitalLaboratory - Hematology and Cell countson 06-51-4250Oywweodg granulocytes/100 WBC (Bld)0.3 %0.0-0.5FZanesville City HospitalLeukocytes [#/volume] corrected for nucleated erythrocytes in Blood by Automated counon 97-86-3544GHD corrected for nucl RBC Auto (Bld) [#/Vol]Leukocytes [#/volume] corrected for nucleated erythrocytes in Blood by Automated coun4.0-11.0[facility] HospitalLymphocytes Auto (Bld) [#/Vol]on 42-65-7844Jxlzzdogold (Bld) [#/Vol]Lymphocytes [#/volume] in Blood by Automated count1.2-3.8[facility] HospitalLymphocytes/100 WBC Auto (Bld)on 88-05-0936Qhwwdxdukqs/100 WBC (Bld)Lymphocytes/100 leukocytes in Blood by Automated count20.5-60.0[facility] HospitalH Auto (RBC) [Entitic mass]on 51-52-4425MGR (RBC) [Entitic mass]MCH [Entitic mass] by Automated count26.7-34.0[facility] HospitalHC Auto (RBC) [Mass/Vol]on 89-27-4871WPQJ (RBC) [Mass/Vol]MCHC [Mass/volume] by Automated count29.9-35.2FZanesville City HospitalMCV Auto (RBC) [Entitic vol]on 06-31-9845VMN (RBC) [Entitic vol]MCV [Entitic volume] by Automated countHigh 81.0-99.0[facility] HospitalMonocytes Auto (Bld) [#/Vol]on 11-82-2653Ehnjqkphk (Bld) [#/Vol]Automated blood monocyte count0.3-0.8[facility] HospitalMonocytes/100 WBC Auto (Bld)on 90-16-1591Vzlrpftxq/100 WBC (Bld)Automated monocyte %1.7-12.0[facility] Neutrophils Auto (Bld) [#/Vol]on 48-11-7434Zenpaoermfn (Bld) [#/Vol]Neutrophils [#/volume] in Blood by Automated count1.4-6.5FZanesville City Hospital Neutrophils/100 WBC Auto (Bld)on 36-25-6255Cugbamdztgr/100 WBC (Bld)Automated neutrophil %43.0-75.0[facility] HospitalNo Panel Informationon 87-97-8543Jfwsbfevlraf pylori Urease TestNegativeOhio State East HospitalNegativeOhio State East HospitalEosinophils # (Auto)0.1 10 3/uL 0.0-0.7FZanesville City HospitalImmature Granulocyte # (Auto)0.02 10 3/uL0.00-0.03[facility]0.1 10 3/uL0.0-0.7FZanesville City Hospital2.3 g/dLLow3.4-5.0[facility]66 U/L 46-116[facility]13 U/MVbe24-76BivndvujhOhio State East Hospital10 U/SHfz06-16InqiddcaqOhio State East Hospital0.02 10 3/uL0.00-0.03 [facility]22.3FZanesville City Hospital0.3 % 0.0-0.5FZanesville City Hospital69.0 mg/dLHigh7.0-18.0[facility]8.1 mg/dLLow8.5-10.1FZanesville City Hospital112 mmol/L Eibd23-306MckhxobumOhio State East Hospital22.7 mmol/L21.0-32.0[facility]3.09 mg/dLHigh0.55-1.02[facility] 18Low>=60 mL/min/1.73m 2FZanesville City Hospital138 mg/bUKmae95-299 [facility]4.7 mmol/L3.5-5.1FZanesville City Hospital144 mmol/G057-368EttdxshscOhio State East Hospital0.3 mg/dL0.2-1.0 [facility]4.9 g/dLLow6.4-8.2FZanesville City HospitalNo Panel InformationOrdered By: Flako Huggins on 62-62-3905Wdirhsnxwcqfp Pathology TestSee commentOhio State East HospitalComment on above:See report. Scanned copy available in EMR.See commentOhio State East HospitalPathology Request for Lab Corpon 20-91-1251Utncnchdm Request for Lab Elizabeth NormalThe Formerly [facility] County Physician GroupComment on above:Order Comment: PATHOLOGY GI SPECIMENResult Comment: See report. Scanned copy available in EMR. PERFORMED BY: [facility] [address] [place] [address] PATHOLOGIST DIRECTOR OF PHOTOGRAPHY CARLOS A CARD M.D.Performed By: #### PATH TO [facility] ####[facility] [address] [place] [address] USAPlatelet mean volume Auto (Bld) [Entitic vol]on 11-01-0142Rcdzpzsu mean volume (Bld) [Entitic vol] Platelet mean volume [Entitic volume] in Blood by Automated count9.5-13.5 [facility] HospitalPlatelets Auto (Bld) [#/Vol]on 10-12-2024 Platelets (Bld) [#/Vol]Platelets [#/volume] in Blood by Automated ivlpn989-609 [facility] HospitalRBC Auto (Bld) [#/Vol]on 23-53-9814MUJ (Bld) [#/Vol]Erythrocytes [#/volume] in Blood by Automated countLow4.20-5.40[facility] Hospitalerum or plasma albumin/globulin mass ratioon 10-12-2024 Albumin/Globulin [Mass ratio]Serum or plasma albumin/globulin mass ratio [facility] Hospitalerum or plasma anion gap determinationon 79-86-0965Uauez gap [Moles/Vol]Serum or plasma anion gap determinationTrumbull Memorial Hospitalurgical Pathologyon 56-23-6677DkiZycixdCommunity Regional Medical Center Basophils Auto (Bld) [#/Vol]on 29-91-8674Ijcnpjjhd (Bld) [#/Vol]Automated basophil count0.0-0.1FZanesville City HospitalBasophils/100 WBC Auto (Bld)on 14-30-4078Udkitxphw/100 WBC (Bld)Automated basophil %0.2-2.0[facility] HospitalEosinophils/100 WBC Auto (Bld)on 10-11-2024 Eosinophils/100 WBC (Bld)Automated eosinophil %Low0.9-7.0[facility] HospitalErythrocyte distribution width Auto (RBC) [Ratio]on 10-11-2024 Erythrocyte distribution width (RBC) [Ratio]Erythrocyte distribution width [Ratio] by Automated count11.0-15.0[facility] HospitalEstimated glomerular filtration rate (GFR) non- Americanon 73-43-9954USA/1.73 sq M.predicted among non-blacks MDRD (S/P/Bld) [Vol rate/Area]Estimated glomerular filtration rate (GFR) non- AmericanLow>=60 mL/min/1.73m 2FZanesville City HospitalGlobulin Calc (S) [Mass/Vol]on 90-64-5155Vbptlddg (S) [Mass/Vol]Serum globulin measurement by calculation (mass/volume)[facility] HospitalHematocrit Auto (Bld) [Volume fraction]on 10-11-2024 Hematocrit (Bld) [Volume fraction]Hematocrit [Volume Fraction] of Blood by Automated countCritically low36.0-48.0[facility] HospitalComment on above:RESULTS CALLED TO KOREY MUNOZ RN @BY Shanti Villagomez at 1851Hemoglobin [Mass/volume] in Bloodon 76-82-9735Icmepogzgv (Bld) [Mass/Vol] Hemoglobin [Mass/volume] in EqojlGgs57.0-16.0[facility] Laboratory - Chemistry and Chemistry - challengeon 11-67-9341Zqmxuyq [Mass/Vol] 2.1 g/dLLow3.4-5.0[facility] HospitalALP [Catalytic activity/Vol] 69 U/N67-883PzqvnmpzzOhio State East HospitalALT [Catalytic activity/Vol]12 U/L Zem06-88EkjdsgpcpOhio State East HospitalAST [Catalytic activity/Vol]10 U/LLow 15-37[facility] HospitalBilirubin [Mass/Vol]0.3 mg/dL0.2-1.0 [facility] HospitalCalcium [Mass/Vol]8.1 mg/dLLow8.5-10.1FZanesville City HospitalChloride [Moles/Vol]111 mmol/FGzyv61-486PbwbbkzgpOhio State East HospitalCO2 [Moles/Vol]19.9 mmol/LLow21.0-32.0[facility] HospitalCreatinine [Mass/Vol]2.86 mg/dLHigh0.55-1.02[facility] HospitalGFR/1.73 sq M.predicted MDRD (S/P/Bld) [Vol rate/Area]19 mL/min/{1.73_m2}Low>=60 mL/min/1.73m 2FZanesville City HospitalGlucose [Mass/Vol]162 mg/qVEewy26-479ToyikodxbOhio State East HospitalPotassium [Moles/Vol]4.6 mmol/L3.5-5.1FZanesville City HospitalProtein [Mass/Vol] 4.8 g/dLLow6.4-8.2FCleveland Clinic Fairview Hospitalodium [Moles/Vol]143 mmol/L 136-145[facility] HospitalUrea nitrogen [Mass/Vol]86.0 mg/dL Critically high7.0-18.0[facility] HospitalComment on above:RESULTS CALLED TO LOCO AU)/GUNNER SURGUrea nitrogen/Creatinine [Mass ratio]30.1 mg/mgOhio State East HospitalLaboratory - Hematology and Cell countson 08-82-0702Ynavmczm granulocytes/100 WBC (Bld)0.2 %0.0-0.5FZanesville City HospitalLeukocytes [#/volume] corrected for nucleated erythrocytes in Blood by Automated counon 83-19-6652NOU corrected for nucl RBC Auto (Bld) [#/Vol]Leukocytes [#/volume] corrected for nucleated erythrocytes in Blood by Automated coun4.0-11.0[facility] HospitalLymphocytes Auto (Bld) [#/Vol]on 84-01-7326Ynlqieyeipy (Bld) [#/Vol]Lymphocytes [#/volume] in Blood by Automated countHigh1.2-3.8[facility] HospitalLymphocytes/100 WBC Auto (Bld)on 35-24-2898Krmxzjfnfbl/100 WBC (Bld)Lymphocytes/100 leukocytes in Blood by Automated count20.5-60.0[facility] HospitalMCH Auto (RBC) [Entitic mass]on 93-37-4087ZKC (RBC) [Entitic mass]MCH [Entitic mass] by Automated count26.7-34.0[facility] HospitalMCHC Auto (RBC) [Mass/Vol]on 34-61-2983KCXT (RBC) [Mass/Vol]MCHC [Mass/volume] by Automated count29.9-35.2FZanesville City HospitalMCV Auto (RBC) [Entitic vol]on 35-23-8813JKN (RBC) [Entitic vol]MCV [Entitic volume] by Automated countHigh 81.0-99.0[facility] HospitalMonocytes Auto (Bld) [#/Vol]on 48-95-6774Rkcknmtmq (Bld) [#/Vol]Automated blood monocyte count0.3-0.8[facility] HospitalMonocytes/100 WBC Auto (Bld)on 30-25-5975Gdfdsgqgd/100 WBC (Bld)Automated monocyte %1.7-12.0[facility] Neutrophils Auto (Bld) [#/Vol]on 66-33-0964Nbzslmiliux (Bld) [#/Vol]Neutrophils [#/volume] in Blood by Automated count1.4-6.5FZanesville City Hospital Neutrophils/100 WBC Auto (Bld)on 27-96-3546Luhzrvqpptn/100 WBC (Bld)Automated neutrophil %Low43.0-75.0[facility] HospitalNo Panel Informationon 33-36-0762Uadfhdgmqbm # (Auto)0.0 10 3/uL0.0-0.7FZanesville City HospitalImmature Granulocyte # (Auto)0.02 10 3/uL0.00-0.03[facility]0.0 10 3/uL0.0-0.7FZanesville City Hospital2.1 g/dLLow 3.4-5.0[facility]69 U/M26-451RygaatrvhOhio State East Hospital12 U/VIgg66-64LjznnnlrxOhio State East Hospital10 U/XJbu16-96TxeiplougOhio State East Hospital0.02 10 3/uL0.00-0.03[facility] 30.1FZanesville City Hospital0.2 %0.0-0.5FZanesville City Hospital86.0 mg/dLCritically high7.0-18.0[facility]8.1 mg/dLLow8.5-10.1FZanesville City Hospital111 mmol/CXeda68-164VfbzawnrlOhio State East Hospital19.9 mmol/LLow21.0-32.0[facility] 2.86 mg/dLHigh0.55-1.02[facility]19Low>=60 mL/min/1.73m 2 [facility]162 mg/zXPufi96-885KaillfkljOhio State East Hospital4.6 mmol/L3.5-5.1FZanesville City Hospital143 mmol/R075-137 [facility]0.3 mg/dL0.2-1.0[facility]4.8 g/dLLow6.4-8.2FZanesville City HospitalPlatelet mean volume Auto (Bld) [Entitic vol]on 02-85-7986Egbkljkp mean volume (Bld) [Entitic vol] Platelet mean volume [Entitic volume] in Blood by Automated count9.5-13.5 [facility] HospitalPlatelets Auto (Bld) [#/Vol]on 10-11-2024 Platelets (Bld) [#/Vol]Platelets [#/volume] in Blood by Automated wyukl052-316 [facility] HospitalRBC Auto (Bld) [#/Vol]on 81-73-5372VED (Bld) [#/Vol]Erythrocytes [#/volume] in Blood by Automated countLow4.20-5.40[facility] Hospitalerum or plasma albumin/globulin mass ratioon 10-11-2024 Albumin/Globulin [Mass ratio]Serum or plasma albumin/globulin mass ratio [facility] Hospitalerum or plasma anion gap determinationon 23-20-8285Gtrps gap [Moles/Vol]Serum or plasma anion gap determinationOhio State East HospitalBasophils Auto (Bld) [#/Vol]on 41-90-4979Gdbrxdyvj (Bld) [#/Vol]Automated basophil count0.0-0.1FZanesville City Hospital Basophils/100 WBC Auto (Bld)on 88-13-4490Wjrmqtzwa/100 WBC (Bld)Automated basophil %0.2-2.0[facility] HospitalEosinophils/100 WBC Auto (Bld) on 12-30-4920Sgmmqxotylp/100 WBC (Bld)Automated eosinophil %Low0.9-7.0[facility] CenterErythrocyte distribution width Auto (RBC) [Ratio]on 77-90-1908Xeguumnwxhl distribution width (RBC) [Ratio]Erythrocyte distribution width [Ratio] by Automated count11.0-15.0[facility] Estimated glomerular filtration rate (GFR) non- Americanon 10-10-2024 GFR/1.73 sq M.predicted among non-blacks MDRD (S/P/Bld) [Vol rate/Area]Estimated glomerular filtration rate (GFR) non- AmericanLow>=60 mL/min/1.73m 2 [facility] HospitalGlobulin Calc (S) [Mass/Vol]on 10-10-2024 Globulin (S) [Mass/Vol]Serum globulin measurement by calculation (mass/volume) [facility] HospitalHematocrit Auto (Bld) [Volume fraction]on 55-09-8138Hvyaokdnkp (Bld) [Volume fraction]Hematocrit [Volume Fraction] of Blood by Automated orhhnTut70.0-48.0[facility] HospitalHemoglobin [Mass/volume] in Bloodon 94-93-0039Bjpzchdezu (Bld) [Mass/Vol]Hemoglobin [Mass/volume] in LhgqxRnn87.0-16.0[facility] Hemoglobin.gastrointestinal [Presence] in Stoolon 10-10-2024 Hemoglobin.gastrointestinal Ql (Stl)Hemoglobin.gastrointestinal [Presence] in StoolAbnormAdena Health SystemLaboratory - Chemistry and Chemistry - challengeon 30-92-9227Jbhibsu [Mass/Vol]2.4 g/dLLow3.4-5.0[facility] HospitalALP [Catalytic activity/Vol]87 U/R56-642DlrtslkvoOhio State East HospitalALT [Catalytic activity/Vol]15 U/X65-34SyvueiczrOhio State East HospitalAST [Catalytic activity/Vol]10 U/KNki05-55QggdmhajqOhio State East HospitalBilirubin [Mass/Vol]0.5 mg/dL0.2-1.0[facility] HospitalBilirubin.direct [Mass/Vol]0.1 mg/dL0.0-0.2FZanesville City HospitalCalcium [Mass/Vol]8.8 mg/dL8.5-10.1FZanesville City Hospital Chloride [Moles/Vol]110 mmol/CQaqt88-379NrpioigfmOhio State East HospitalCO2 [Moles/Vol]19.4 mmol/LLow21.0-32.0[facility] HospitalCreatinine [Mass/Vol]2.78 mg/dLHigh0.55-1.02[facility] HospitalGFR/1.73 sq M.predicted MDRD (S/P/Bld) [Vol rate/Area]20 mL/min/{1.73_m2}Low>=60 mL/min/1.73m 2FZanesville City HospitalGlucose [Mass/Vol]191 mg/dLHigh 74-106[facility] HospitalPotassium [Moles/Vol]5.3 mmol/LHigh 3.5-5.1FZanesville City HospitalProtein [Mass/Vol]5.8 g/dLLow6.4-8.2 [facility] Hospitalodium [Moles/Vol]141 mmol/J848-741DbrycvqtnOhio State East HospitalUrea nitrogen [Mass/Vol]67.0 mg/dLHigh7.0-18.0[facility] HospitalUrea nitrogen/Creatinine [Mass ratio]24.1 mg/mgOhio State East HospitalLaboratory - Hematology and Cell countson 10-10-2024 Immature granulocytes/100 WBC (Bld)0.2 %0.0-0.5FZanesville City Hospital Leukocytes [#/volume] corrected for nucleated erythrocytes in Blood by Automated counon 78-05-9438SOK corrected for nucl RBC Auto (Bld) [#/Vol]Leukocytes [#/volume] corrected for nucleated erythrocytes in Blood by Automated coun 4.0-11.0[facility] HospitalLymphocytes Auto (Bld) [#/Vol]on 73-80-6964Umhctazgnie (Bld) [#/Vol]Lymphocytes [#/volume] in Blood by Automated count1.2-3.8[facility] HospitalLymphocytes/100 WBC Auto (Bld)on 70-59-1429Okkwlvpvojq/100 WBC (Bld)Lymphocytes/100 leukocytes in Blood by Automated count20.5-60.0[facility] HospitalMCH Auto (RBC) [Entitic mass]on 81-56-2812QBP (RBC) [Entitic mass]MCH [Entitic mass] by Automated count 26.7-34.0[facility] HospitalMCHC Auto (RBC) [Mass/Vol]on 62-42-8682XJPR (RBC) [Mass/Vol]MCHC [Mass/volume] by Automated count29.9-35.2 [facility] HospitalMCV Auto (RBC) [Entitic vol]on 67-62-2309BSB (RBC) [Entitic vol]MCV [Entitic volume] by Automated bvtazMwxf47.0-99.0[facility] HospitalMonocytes Auto (Bld) [#/Vol]on 52-84-7335Nzekycxim (Bld) [#/Vol]Automated blood monocyte count0.3-0.8[facility] Monocytes/100 WBC Auto (Bld)on 05-14-5201Mezcrvebt/100 WBC (Bld)Automated monocyte %1.7-12.0[facility] HospitalNeutrophils Auto (Bld) [#/Vol]on 42-44-4793Bzeuukmqidf (Bld) [#/Vol]Neutrophils [#/volume] in Blood by Automated count1.4-6.5FZanesville City HospitalNeutrophils/100 WBC Auto (Bld)on 98-94-3867Mutifyaaqcm/100 WBC (Bld)Automated neutrophil %43.0-75.0 [facility] HospitalNo Panel Informationon 32-60-2703Fesfbzpzshs # (Auto)0.0 10 3/uL0.0-0.7FZanesville City HospitalImmature Granulocyte # (Auto)0.02 10 3/uL0.00-0.03[facility] HospitalTroponin I High Sensitivity4.7 pg/mL4.0-51.3FZanesville City HospitalComment on above: CUT-OFF POINTS HAVE BEEN [...] IN CONJUNCTIONWITH OTHER DIAGNOSTIC AND CLINICAL INFORMATION.4.7 pg/mL4.0-51.3FZanesville City Hospital2.4 g/dL Low3.4-5.0[facility]24.1FZanesville City Hospital 0.0 10 3/uL0.0-0.7FZanesville City Hospital87 U/U49-598ZbkbbxvepOhio State East Hospital67.0 mg/dLHigh7.0-18.0[facility]15 U/Q20-23BwbvoiltfOhio State East Hospital8.8 mg/dL8.5-10.1FZanesville City Hospital10 U/QFie36-42UjthwakzbOhio State East Hospital110 mmol/LHigh 98-107[facility]0.1 mg/dL0.0-0.2FZanesville City Hospital19.4 mmol/LLow21.0-32.0[facility]0.02 10 3/uL0.00-0.03[facility]2.78 mg/dLHigh0.55-1.02[facility]0.2 %0.0-0.5FZanesville City Hospital0.5 mg/dL 0.2-1.0[facility]20Low>=60 mL/min/1.73m 2FZanesville City Hospital5.8 g/dLLow6.4-8.2FZanesville City Hospital191 mg/xRXxrs30-608OfkoiqahoOhio State East Hospital5.3 mmol/LHigh3.5-5.1FZanesville City Hospital141 mmol/D488-372UffcpzlkpOhio State East Hospital Platelet mean volume Auto (Bld) [Entitic vol]on 89-73-5458Tlnzfxvr mean volume (Bld) [Entitic vol]Platelet mean volume [Entitic volume] in Blood by Automated count9.5-13.5FZanesville City HospitalPlatelets Auto (Bld) [#/Vol]on 17-53-3862Inlladnbi (Bld) [#/Vol]Platelets [#/volume] in Blood by Automated tyaik006-600KtzisinhiOhio State East HospitalRBC Auto (Bld) [#/Vol]on 10-10-2024 RBC (Bld) [#/Vol]Erythrocytes [#/volume] in Blood by Automated countLow4.20-5.40 [facility] Hospitalerum or plasma albumin/globulin mass ratioon 15-71-3929Cmohxpp/Globulin [Mass ratio]Serum or plasma albumin/globulin mass ratioTrumbull Memorial Hospitalerum or plasma anion gap determinationon 44-49-5097Rbkoq gap [Moles/Vol]Serum or plasma anion gap determinationOhio State East HospitalEstimated glomerular filtration rate (GFR) non- Americanon 66-12-7374YJK/1.73 sq M.predicted among non-blacks MDRD (S/P/Bld) [Vol rate/Area]Estimated glomerular filtration rate (GFR) non- Low>=60 mL/min/1.73m 2FZanesville City HospitalLaboratory - Chemistry and Chemistry - challengeon 60-09-3171Yvxydrd [Mass/Vol]8.9 mg/dL8.5-10.1 [facility] HospitalChloride [Moles/Vol]108 mmol/SDapo28-565 [facility] HospitalCO2 [Moles/Vol]25.2 mmol/L21.0-32.0[facility] HospitalCreatinine [Mass/Vol]2.73 mg/dLHigh0.55-1.02[facility] HospitalGFR/1.73 sq M.predicted MDRD (S/P/Bld) [Vol rate/Area]20 mL/min/{1.73_m2}Low>=60 mL/min/1.73m 2FZanesville City HospitalGlucose [Mass/Vol]183 mg/iLLflh69-778KvhpejvlzOhio State East HospitalPotassium [Moles/Vol]5.6 mmol/LHigh3.5-5.1FCleveland Clinic Fairview Hospitalodium [Moles/Vol]143 mmol/M220-365LybzeiefgOhio State East HospitalUrea nitrogen [Mass/Vol]32.0 mg/dLHigh7.0-18.0[facility] HospitalUrea nitrogen/Creatinine [Mass ratio]11.7 mg/mgOhio State East HospitalNo Panel Informationon 27-65-841880.7FZanesville City Hospital32.0 mg/dL High7.0-18.0[facility]8.9 mg/dL8.5-10.1FZanesville City Hospital108 mmol/ZGani20-245MekfivozpOhio State East Hospital25.2 mmol/L 21.0-32.0[facility]2.73 mg/dLHigh0.55-1.02[facility]20Low>=60 mL/min/1.73m 2FZanesville City Hospital 183 mg/rQUotp24-224LoodksalaOhio State East Hospital5.6 mmol/LHigh3.5-5.1 [facility]143 mmol/D099-791MythdadxgTrumbull Memorial Hospitalerum or plasma anion gap determinationon 84-64-4179Vtxuh gap [Moles/Vol] Serum or plasma anion gap determinationOhio State East HospitalBasic Metabolic Panelon 42-95-7153Tgccyllhgv Clr Calc Ionvmtnf61.25NoECU Health Edgecombe Hospital Physician GroupComment on above:Result Comment: PERFORMED BY: [facility] [address] [place] [address] PATHOLOGIST DIRECTOR OF PHOTOGRAPHY LUIS DEE M.D.Performed By: #### BMP ####[address] [place] [address] USAGFR/1.73 sq M.predicted MDRD (S/P/Bld) [Vol rate/Area]18.292 mL/min/{1.73_m2}NormalThe [facility] Physician [facility]ipp[facility] County HospitalComment on above:Performed By: #### BMP ####[address] [place] [address] USACalcium [Mass/volume] in Serum or PlasmaOrdered By: Trent Patterson on 41-12-9251Arhftwj [Mass/Vol]7.6 mg/dLLow8.6-10.3FZanesville City HospitalComment on above:Performed By: #### BMP ####[address] [place] [address] USACalcium [Mass/Vol] Calcium [Mass/volume] in Serum or PlasmaLow8.6-10.3FZanesville City HospitalCapillary blood glucose measurement by glucometer (mass/volume)Ordered By: Trent Patterson on 75-93-7679Risbeoq [Mass/Vol]137 mg/dLNormalOhio State East HospitalComment on above:Random Glucose Reference Range is [...] the diagnosis of Diabetes Mellitus. PERFORMED BY: [facility] [address] [place] [address] PATHOLOGIST DIRECTOR OF PHOTOGRAPHY LUIS DEE M.D.Performed By: #### GLULS ####Point of Care testing,Carbon dioxide, total [Moles/volume] in Serum or PlasmaOrdered By: Trent Patterson on 69-17-2967BW7 [Moles/Vol]20.5 mmol/LLow21.0-31.0[facility] HospitalComment on above:Performed By: #### BMP ####[address] [address] USACO2 [Moles/Vol]Carbon dioxide, total [Moles/volume] in Serum or FryezbZhx47.0-31.0[facility] Chloride [Moles/volume] in Serum or PlasmaOrdered By: Trent Patterson on 88-75-3412Zdvphmob [Moles/Vol]115 mmol/KKkoy45-440Wrqwopzic[address] [place], [place] [address]Comment on above:Performed By: #### BMP ####[address] [address] USAChloride [Moles/Vol]Chloride [Moles/volume] in Serum or FdtwngLape61-753ChgddwgitOhio State East Hospital Creatinine [Mass/volume] in Serum or PlasmaOrdered By: Trent Patterson on 28-35-6515Rizoyidiqb [Mass/Vol]2.55 mg/dLHigh0.60-1.20[facility] East HospitalComment on above:Performed By: #### BMP ####[address] [place] [address] USACreatinine [Mass/Vol]Creatinine [Mass/volume] in Serum or PlasmaHigh0.60-1.20[facility] echo transthoracicon 42-72-3470FKP echo transthoracicCHILDREN'S HOSPITAL FOR RE[facility] Main [place] [address] [place] [address] Echocardiogram Signed Patient: Hailee Trivedi MR#: [id number] 306 : 1940 Acct:[id number] Age/Sex: 84 / F ADM Date: 09/18/24 Loc: Room: [address] [place] [address] Type: ADM INOo Attending Dr: Trent Patterson MD Ordering Provider: Trent Patterson MD Date of Service: 09/18/2404/06/1148 [facility] transthoracic: elevated BNP Copies to: MD Camilla Del Toro MD, [facility] BSA: 2.0 m2 BP: 119/73 mmHg HR: [...] Camilla Estrada MD, [facility] 09/19/24 1618NoECU Health Edgecombe Hospital Physician GroupGlucose Glucometer (BldC) [Mass/Vol]Ordered By: Trent Patterson on 57-52-0359Welwxat [Mass/Vol]Capillary blood glucose measurement by glucometer (mass/volume)[facility] East HospitalComment on above:Random Glucose Reference Range is dependent on time and content of last meal. Glucose of more than 200 mg/dL in a nonstressed, ambulatory subject supports the diagnosis of Diabetes Mellitus.Glucose Poct Glucometerson 27-71-8751Txuxfgp [Mass/Vol]177 mg/dLHCA Florida South Shore Hospital Physician Tippah County HospitalComment on above:Result Comment: Random Glucose Reference Range is dependent on time and content of last meal. Glucose of more than 200 mg/dL in a nonstressed, ambulatory subject supports the diagnosis of Diabetes Mellitus. PERFORMED BY: [facility] [address] [facility] [place] [address] PATHOLOGIST DIRECTOR OF PHOTOGRAPHY LUIS DEE M.D.Performed By: #### GLULS ####Point of Care testing,Glucose [Mass/Vol]108 mg/dLHCA Florida South Shore Hospital Physician Tippah County HospitalComment on above:Result Comment: Random Glucose Reference Range is dependent on time and content of last meal. Glucose of more than 200 mg/dL in a nonstressed, ambulatory subject supports the diagnosis of Diabetes Mellitus. PERFORMED BY: [facility] [address] [facility] [place] [address] PATHOLOGIST DIRECTOR OF PHOTOGRAPHY LUIS DEE M.D.Performed By: #### GLULS ####Point of Care testing,Glucose [Mass/volume] in Serum or PlasmaOrdered By: Trent Patterson on 90-95-7547Elbbeqy [Mass/Vol]103 mg/wLExmx62-703YllvsbjikOhio State East HospitalComment on above: ADA recommended reference rangeRandom [...] ADA recommended reference rangePerformed By: #### BMP ####[address] [place] [address] USAGlucose [Mass/Vol]Glucose [Mass/volume] in Serum or ZzqesgXkuu72-652OuggiwzaoOhio State East Hospital Comment on above:ADA recommended reference rangeRandom Glucose Reference Range is dependent on time and content of last meal. Glucose of more than 200 mg/dL in a nonstressed, ambulatory subject supports the diagnosisof Diabetes Mellitus.No Panel InformationOrdered By: Trent Patterson on 07-84-5771Qemhgjqsy GFR (CKD-EPI)18.292 mL/MinOhio State East HospitalPharmacy Creatinine Clearance (Chem19.25[facility] HospitalPotassium [Moles/volume] in Serum or PlasmaOrdered By: Trent Patterson on 96-17-9210Pjtvfuqbl [Moles/Vol]3.6 mmol/LNormal3.5-5.1FZanesville City HospitalComment on above:Performed By: #### BMP ####[address] [address] USAPotassium [Moles/Vol]Potassium [Moles/volume] in Serum or Plasma3.5-5.1 Tr[facility] Memorial Hospitalerum or plasma anion gap determinationOrdered By: Trent Patterson on 23-55-2595Xcpkb gap [Moles/Vol]9.1 mmol/LNormal6.0-15.0 [facility] HospitalComment on above:Performed By: #### BMP ####[address] [address] USAAnion gap [Moles/Vol]Serum or plasma anion gap determination6.0-15.0Trumbull Memorial Hospitalodium [Moles/volume] in Serum or PlasmaOrdered By: Trent Patterson on 37-31-9922Pbgupn [Moles/Vol]141 mmol/HLqyuaq473-953XxkdcamshOhio State East HospitalComment on above:Performed By: #### BMP ####[address] [place] [address] USASodium [Moles/Vol]Sodium [Moles/volume] in Serum or Rkhfwf192-017LrydoygpvOhio State East HospitalUrea nitrogen [Mass/volume] in Serum or PlasmaOrdered By: Trent Patterson on 94-23-7733Vzkb nitrogen [Mass/Vol]37 mg/dLMan Appalachian Regional Hospital725[facility] East HospitalComment on above:Performed By: #### BMP ####[place] [address] USAUrea nitrogen [Mass/Vol]Urea nitrogen [Mass/volume] in Serum or PlasmaHigh7-25[facility] Automated basophil %Ordered By: Roseline Overton on 91-40-5211Ucvrqillo/100 WBC (Bld) 0.8 %Normal.[facility] HospitalComment on above:Performed By: #### MG, CBC, BMP ####[place] [address] USAAutomated basophil countOrdered By: Roseline Overton on 59-53-8252Nxnzyzkjd (Bld) [#/Vol]0.1 10*3/uLNormal0.0-0.2FZanesville City HospitalComment on above:Result Comment: PERFORMED BY: [facility] [address] [place] [address] PATHOLOGIST DIRECTOR OF PHOTOGRAPHY LUIS DEE M.D.Performed By: #### MG, CBC, BMP ####[place] [address] USAAutomated blood monocyte countOrdered By: Roseline Overton on 19-43-9387Mfyndxwbr (Bld) [#/Vol]0.9 10*3/uLHigh0.0-0.8 [facility] HospitalComment on above:Performed By: #### MG, CBC, BMP ####[place] [address] [place] Automated eosinophil %Ordered By: Roseline Overton on 61-66-2579Ngzlybovwxt/100 WBC (Bld)2.3 %Normal.[facility] HospitalComment on above:Performed By: #### MG, CBC, BMP ####[address] [address] USAAutomated eosinophil countOrdered By: Roseline Overton on 09-18-2024 Eosinophils (Bld) [#/Vol]0.2 10*3/uLNormal0.0-0.45[facility] HospitalComment on above:Performed By: #### MG, CBC, BMP ####[place] [address] USAAutomated monocyte %Ordered By: Roseline Overton on 23-65-3506Oqycaqdmi/100 WBC (Bld)8.7 %Normal.[facility] HospitalComment on above:Performed By: #### MG, CBC, BMP ####[place] [address] [place] Automated neutrophil %Ordered By: Roseline Overton on 31-14-9967Ikffwewieoz/100 WBC (Bld)81.6 %Normal.[facility] HospitalComment on above:Performed By: #### MG, CBC, BMP ####[id number] USABasic Metabolic Panelon 53-74-1285Pwnmt gap [Moles/Vol]11.5 mmol/LNormal6.0-15.0The [facility] Physician GroupComment on above:Performed By: #### MG, CBC, BMP ####[place] [address] USACalcium [Mass/Vol]7.5 mg/dLLow8.6-10.3The [facility] Physician GroupComment on above:Performed By: #### MG, CBC, BMP ####[address] [place] Chloride [Moles/Vol]112 mmol/RXkkr67-340Vys [facility] Physician GroupComment on above:Performed By: #### MG, CBC, BMP ####[address] USACO2 [Moles/Vol]17.4 mmol/LLow21.0-31.0The [facility] Physician GroupComment on above:Performed By: #### MG, CBC, BMP ####[address] [place] [address] [place] Creatinine [Mass/Vol]2.58 mg/dLHigh0.60-1.20The [facility] Physician GroupComment on above:Performed By: #### MG, CBC, BMP ####[address] [place] [address] USACreatinine Clr Calc Bfoawyrg33.85NormalThe [facility]ly [facility] Physician GroupComment on above:Performed By: #### MG, CBC, BMP ####[address] [place] [address] [place] GFR/1.73 sq M.predicted MDRD (S/P/Bld) [Vol rate/Area]18.037 mL/min/{1.73_m2} NormalThe [facility] Physician GroupComment on above:Performed By: #### MG, CBC, BMP ####[address] Glucose [Mass/Vol]112 mg/hSBvhy59-544Lrf [facility] Physician GroupComment on above:Result Comment: Random Glucose Reference Range is dependent on time and content of last meal. Glucose of more than 200 mg/dL in a nonstressed, ambulatory subject supports the diagnosis of Diabetes Mellitus. ADA recommended reference rangePerformed By: #### MG, CBC, BMP ####[place] [address] USAPotassium [Moles/Vol] 3.9 mmol/LNormal3.5-5.1The [facility] Physician GroupComment on above:Performed By: #### MG, CBC, BMP ####[place] [address] USASodium [Moles/Vol]137 mmol/RCkcfna914-895Qwf [facility] Physician GroupComment on above:Performed By: #### MG, CBC, BMP ####[facility] USAUrea nitrogen [Mass/Vol]40 mg/dLHigh7-25The [facility] Physician GroupComment on above:Performed By: #### MG, CBC, BMP ####[facility] [address] [place] USABasophils Auto (Bld) [#/Vol]Ordered By: Roseline Overton on 23-27-4951Cptydashy (Bld) [#/Vol]Automated basophil count0.0-0.2 [facility] HospitalBasophils/100 WBC Auto (Bld)Ordered By: Roseline Overton on 67-96-0910Yyzwxwjgq/100 WBC (Bld)Automated basophil %.[facility] HospitalComplete Blood Count Auto Diffon 84-44-8402Djvk Corpuscular HGB Conc33.8 g/aWTpywtg94.0-35.0The [facility] Physician GroupComment on above:Performed By: #### MG, CBC, BMP ####[facility] [address] USANRBC%0.0 /100{WBC}Normal0-0.5The [facility] Physician GroupComment on above:Performed By: #### MG, CBC, BMP ####[facility] [address] USAECG 12 lead ECGon 92-81-2026ZBZ 12 lead ECGCHILDREN'S HOSPITAL FOR [place] [address] Electrocardiograph Report Signed Patient: Hailee Trivedi MR#: [id number] 306 : 1940 Acct:[id number] Age/Sex: 84 / F ADM Date: 09/18/24 Loc: Room: [address] [place] [address] Type: ADM INOo Attending Dr: Trent Patterson [...] Confirmed by NATALIE VELAZQUEZ [facility], CAMILLA ([id number]) on 09/19/2024 2:53:36 PM Referred By: Electronically Signed By: CAMILLA ESTRADA MD [facility] Transcribed By: MUS Signed By Camilla Estrada MD, [facility] 09/19/24 1453[facility] Physician GroupEosinophils Auto (Bld) [#/Vol] Ordered By: Roseline Overton on 89-03-2874Gofjftgyprz (Bld) [#/Vol]Automated eosinophil count0.0-0.45[facility] HospitalEosinophils/100 WBC Auto (Bld)Ordered By: Roseline Overton on 92-92-8649Aabglbikwbv/100 WBC (Bld) Automated eosinophil %.[facility] HospitalErythrocyte distribution width Auto (RBC) [Ratio]Ordered By: Roseline Overton on 51-74-3643Jclpljvsbft distribution width (RBC) [Ratio]Erythrocyte distribution width [Ratio] by Automated count11.9-15.3FZanesville City HospitalErythrocyte distribution width [Ratio] by Automated countOrdered By: Roseline Overton on 65-38-3131Anyipayuhus distribution width (RBC) [Ratio]14.1 %Zxnhfd06.9-15.3 [facility] HospitalComment on above:Performed By: #### MG, CBC, BMP ####[facility] [address] [place] [address] [place] Erythrocytes [#/volume] in Blood by Automated countOrdered By: Roseline Overton on 26-73-6307RMC (Bld) [#/Vol]3.72 10*6/uLNormal3.60-5.00[facility] HospitalComment on above:Performed By: #### MG, CBC, BMP ####[facility] [address] [place] [address] USAGlucose Poct Glucometerson 10-53-1141Mcazbwz [Mass/Vol]177 mg/dLNoECU Health Edgecombe Hospital Physician GroupComment on above:Result Comment: Random Glucose Reference Range is dependent on time and content of last meal. Glucose of more than 200 mg/dL in a nonstressed, ambulatory subject supports the diagnosis of Diabetes Mellitus. PERFORMED BY: [place] [address] PATHOLOGIST DIRECTOR OF PHOTOGRAPHY LUIS DEE M.D.Performed By: #### GLULS ####Point of Care testing,Zwxosxq9Cch0: Cleaned MeterHCA Florida South Shore Hospital Physician GroupComment on above:Result Comment: PERFORMED BY: [place] [address] PATHOLOGIST DIRECTOR OF PHOTOGRAPHY LUIS DEE M.D.Performed By: #### GLULS ####Point of Care testing,Glucose [Mass/Vol]158 mg/dLHCA Florida South Shore Hospital Physician GroupComment on above:Result Comment: Random Glucose Reference Range is dependent on time and content of last meal. Glucose of more than 200 mg/dL in a nonstressed, ambulatory subject supports the diagnosis of Diabetes Mellitus.Performed By: #### GLULS ####Point of Care testing,Commemt1 Glu2: Cleaned MeterHCA Florida South Shore Hospital Physician GroupComment on above:Result Comment: PERFORMED BY: [place] [phone] PATHOLOGIST DIRECTOR OF PHOTOGRAPHY LUIS DEE M.D.Performed By: #### LACTIC #### [facility] [address] [place] [address] USAGlucose [Mass/Vol]145 mg/dLHCA Florida South Shore Hospital Physician GroupComment on above:Result Comment: Random Glucose Reference Range is dependent on time and content of last meal. Glucose of more than 200 mg/dL in a nonstressed, ambulatory subject supports the diagnosis of Diabetes Mellitus.Performed By: #### LACTIC #### [facility] [address] [place] [address] QAQEturwrt8Ndi4: Cleaned MeterHCA Florida South Shore Hospital Physician GroupComment on above:Result Comment: PERFORMED BY: [place] [address] PATHOLOGIST DIRECTOR OF PHOTOGRAPHY LUIS DEE M.D.Performed By: #### GLULS ####Point of Care testing,Glucose [Mass/Vol]177 mg/dLNoECU Health Edgecombe Hospital Physician GroupComment on above:Result Comment: Random Glucose Reference Range is dependent on time and content of last meal. Glucose of more than 200 mg/dL in a nonstressed, ambulatory subject supports the diagnosis of Diabetes Mellitus.Performed By: #### GLULS ####Point of Care testing,Glucose [Mass/Vol]111 mg/dLNoECU Health Edgecombe Hospital Physician GroupComment on above:Result Comment: Random Glucose Reference Range is dependent on time and content of last meal. Glucose of more than 200 mg/dL in a nonstressed, ambulatory subject supports the diagnosis of Diabetes Mellitus. PERFORMED BY: [address] [place] [address] PATHOLOGIST DIRECTOR OF PHOTOGRAPHY LUIS DEE M.D.Performed By: #### GLULS #### Point of Care testing ,Hematocrit Auto (Bld) [Volume fraction]Ordered By: Roseline Overton on 09-18-2024 Hematocrit (Bld) [Volume fraction]Hematocrit [Volume Fraction] of Blood by Automated count34.0-46.4FZanesville City HospitalHematocrit [Volume Fraction] of Blood by Automated countOrdered By: Roseline Overtno on 09-18-2024 Hematocrit (Bld) [Volume fraction]35.5 %Uunxgp01.0-46.4FZanesville City HospitalComment on above:Performed By: #### MG, CBC, BMP ####[facility] [place] [address] USAHemoglobin [Mass/volume] in BloodOrdered By: Roseline Overton on 31-62-9270Gkuygxuhct (Bld) [Mass/Vol]12.0 g/zCIwnqwj03.8-15.4FZanesville City HospitalComment on above:Performed By: #### MG, CBC, BMP ####[facility] [place] [address] USAHemoglobin (Bld) [Mass/Vol]Hemoglobin [Mass/volume] in Blood11.8-15.4FZanesville City HospitalLeukocytes [#/volume] corrected for nucleated erythrocytes in Blood by Automated coun Ordered By: Roseline Overton on 99-91-0448CHN corrected for nucl RBC Auto (Bld) [#/Vol]9.8 10*3/uL3.8-11.6FZanesville City HospitalWBC corrected for nucl RBC Auto (Bld) [#/Vol]Leukocytes [#/volume] corrected for nucleated erythrocytes in Blood by Automated coun3.8-11.6FZanesville City Hospital Leukocytes [#/volume] in Blood by Automated countOrdered By: Roseline Overton on 27-14-0764XVI (Bld) [#/Vol]9.8 10*3/uLNormal3.8-11.6FZanesville City HospitalComment on above:Performed By: #### MG, CBC, BMP ####[facility] [address] [place] [address] USALymphocytes Auto (Bld) [#/Vol] Ordered By: Roseline Overton on 67-57-4862Tgguxzqvljs (Bld) [#/Vol]Lymphocytes [#/volume] in Blood by Automated countLow1.00-4.8[facility] HospitalLymphocytes [#/volume] in Blood by Automated countOrdered By: Roseline Overton on 17-99-7924Xvvvzesrovp (Bld) [#/Vol]0.7 10*3/uLLow1.00-4.8[facility] HospitalComment on above:Performed By: #### MG, CBC, BMP ####[facility] [address] [place], [place] [address] USALymphocytes/100 WBC Auto (Bld)Ordered By: Roseline Overton on 26-27-1517Bsjhtywxfpr/100 WBC (Bld) Lymphocytes/100 leukocytes in Blood by Automated count.[facility] HospitalLymphocytes/100 leukocytes in Blood by Automated countOrdered By: Roseline Overton on 30-65-8396Puccojphnej/100 WBC (Bld)6.6 %Normal.[facility] HospitalComment on above:Performed By: #### MG, CBC, BMP ####[facility] [address] [place] [phone] [facility] Auto (RBC) [Entitic mass]Ordered By: Roseline Overton on 85-21-0925PLU (RBC) [Entitic mass]MCH [Entitic mass] by Automated count24.7-34.3FC[facility] [Entitic mass] by Automated countOrdered By: Roseline Overton on 38-17-7021QST (RBC) [Entitic mass]32.3 lmYvcibx76.7-34.3FZanesville City HospitalComment on above:Performed By: #### MG, CBC, BMP ####[facility] [address] [place] [address] [facility] Auto (RBC) [Mass/Vol]Ordered By: Roseline Overton on 35-32-7925BJEC (RBC) [Mass/Vol]33.8 g/dL32.0-35.0[facility] (RBC) [Mass/Vol]MCHC [Mass/volume] by Automated count 32.0-35.0[facility] Auto (RBC) [Entitic vol]Ordered By: Roseline Overton on 38-05-7929JCS (RBC) [Entitic vol]MCV [Entitic volume] by Automated -355RftcunrsoFlower Hospital [Entitic volume] by Automated countOrdered By: Roseline Overton on 34-76-2829VVQ (RBC) [Entitic vol]95.4 pGWhfttk37-264QlxgjhuozOhio State East HospitalComment on above:Performed By: #### MG, CBC, BMP ####[facility] [address] [place] [address] USAMagnesium [Mass/volume] in Serum or PlasmaOrdered By: Roseline Overton on 40-90-7901Uvkxpkkuv [Mass/Vol]1.7 mg/dLLow1.9-2.7FZanesville City HospitalComment on above:Result Comment: PERFORMED BY: [facility] [address] [place] [id number] PATHOLOGIST DIRECTOR OF PHOTOGRAPHY LUIS DEE M.D.Performed By: #### MG, CBC, BMP ####[facility] [address] [place] [address] USAMagnesium [Mass/Vol]Magnesium [Mass/volume] in Serum or PlasmaLow1.9-2.7FZanesville City Hospital Monocytes Auto (Bld) [#/Vol]Ordered By: Roseline Overton on 02-44-6401Yjsjcanek (Bld) [#/Vol]Automated blood monocyte countHigh0.0-0.8[facility] HospitalMonocytes/100 WBC Auto (Bld)Ordered By: Roseline Overton on 09-18-2024 Monocytes/100 WBC (Bld)Automated monocyte %.[facility] Neutrophils Auto (Bld) [#/Vol]Ordered By: Roseline Overton on 50-47-7060Lguxadulsef (Bld) [#/Vol]Neutrophils [#/volume] in Blood by Automated countHigh1.8-7.7 [facility] HospitalNeutrophils [#/volume] in Blood by Automated countOrdered By: Roseline Overton on 52-94-1753Pjnqhnwisbb (Bld) [#/Vol]8.0 10*3/uL High1.8-7.7FZanesville City HospitalComment on above:Performed By: #### MG, CBC, BMP ####[facility] [address] [place] [address] USANeutrophils/100 WBC Auto (Bld)Ordered By: Roseline Overton on 09-18-2024 Neutrophils/100 WBC (Bld)Automated neutrophil %.[facility] HospitalNo Panel InformationOrdered By: Trent Patterson on 28-19-0263Zzccvru Glucose CommentGlu2: cleaned [facility] County HospitalNucleated erythrocytes [Presence] in Blood by Automated countOrdered By: Roseline Overton on 09-69-6368Abumemfgd RBC Auto Ql (Bld)0.0 /100{WBC}0-0.5FZanesville City HospitalNucleated RBC Auto Ql (Bld)Nucleated erythrocytes [Presence] in Blood by Automated count0-0.5FZanesville City HospitalPlatelet mean volume Auto (Bld) [Entitic vol]Ordered By: Roseline Overton on 83-78-3546Aytnfrvv mean volume (Bld) [Entitic vol]Platelet mean volume [Entitic volume] in Blood by Automated count6.3-10.7FZanesville City HospitalPlatelet mean volume [Entitic volume] in Blood by Automated countOrdered By: Roseline Overton on 76-06-3706Rflygwqh mean volume (Bld) [Entitic vol]10.2 fLNormal6.3-10.7FZanesville City HospitalComment on above:Performed By: #### MG, CBC, BMP ####[address] [address] [place] Platelets Auto (Bld) [#/Vol]Ordered By: Roseline Overton on 04-17-5105Ovnnmzeio (Bld) [#/Vol]Platelets [#/volume] in Blood by Automated tcdpsEbk367-258HxrjovrqdOhio State East HospitalPlatelets [#/volume] in Blood by Automated countOrdered By: Roseline Overton on 36-13-6895Aumedhjkb (Bld) [#/Vol]137 10*3/zDBkn197-569 [facility] HospitalComment on above:Performed By: #### MG, CBC, BMP ####[place] [id number] USARBC Auto (Bld) [#/Vol]Ordered By: Roseline Overton on 16-99-4163OMK (Bld) [#/Vol] Erythrocytes [#/volume] in Blood by Automated count3.60-5.00[facility] HospitalTroponin I High Sensitivityon 81-59-8500Xxhgiwgk I High Kxwrzlqfdte88.2 pg/mLHigh0.0-15.0The [facility] Physician GroupComment on above: Result Comment: PERFORMED BY: [facility] [address] [place] [address] PATHOLOGIST DIRECTOR OF PHOTOGRAPHY LUIS DEE M.D.Performed By: #### HS TROP ####[place] [id number] USATroponin I High Sensitivity9.1 pg/mL Normal0.0-15.0The [facility] Physician GroupComment on above:Result Comment: PERFORMED BY: [facility] [address] [facility] [place] [address] PATHOLOGIST DIRECTOR OF PHOTOGRAPHY LUIS DEE M.D.Performed By: #### HS TROP ####[facility] [address] [place] [id number] USATroponin I.cardiac [Mass/volume] in Serum or Plasma by Detection limit <= 0.01 ng/Ordered By: Roseline Overton on 84-74-6409Kgeiugqk I.cardiac DL <= 0.01 ng/mL [Mass/Vol]21.2 pg/mLHigh0.0-15.0 [facility] HospitalTroponin I.cardiac DL <= 0.01 ng/mL [Mass/Vol] Troponin I.cardiac [Mass/volume] in Serum or Plasma by Detection limit <= 0.01 ng/High0.0-15.0[facility] HospitalWBC Auto (Bld) [#/Vol]Ordered By: Roseline Overton on 61-00-5728LFK (Bld) [#/Vol]Leukocytes [#/volume] in Blood by Automated count3.8-11.6FZanesville City HospitalActivated partial thromboplastin time (aPTT) in platelet poor plasma by coagulation aOrdered By: Jesse Valdez on 48-27-3910mKFO Coag (PPP) [Time]30.4 s25.1-36.5FZanesville City HospitalComment on above:A hematocrit value greater than 55% may lead to inaccurate results in coagulation testing. Patientshaving hematocrit values >55% require a special collection tube for coagulation studies. Please c ontact the laboratory at [phone] for redraw instructions.Alanine aminotransferase [Enzymatic activity/volume] in Serum or PlasmaOrdered By: Jesse Valdez on 98-41-1180FUH [Catalytic activity/Vol]15 U/LNormal [facility] HospitalComment on above:Performed By: #### CMP, HS TROP, PTT, CK, BNP, PT, MG, TSH3, SCAN CBC ####[facility] [address] [place] [address] USAALT [Catalytic activity/Vol]Alanine aminotransferase [Enzymatic activity/volume] in Serum or PlasmaOhio State East HospitalAlbumin [Mass/volume] in Serum or Plasma by Bromocresol green (BCG) dye binding methoOrdered By: Jesse Valdez on 45-97-1775Rmwosaz BCG dye [Mass/Vol]2.7 g/dLLow3.5-5.7FZanesville City HospitalAlbumin BCG dye [Mass/Vol]Albumin [Mass/volume] in Serum or Plasma by Bromocresol green (BCG) dye binding methoLow3.5-5.7FZanesville City HospitalAlkaline phosphatase [Enzymatic activity/volume] in Serum or PlasmaOrdered By: Jesse Valdez on 19-53-8109MKG [Catalytic activity/Vol]64 U/TDsrbnb73-730Gixvxkexp69 Ali StreetComment on above:Performed By: #### CMP, HS TROP, PTT, CK, BNP, PT, MG, TSH3, SCAN CBC ####[address] [address] USAALP [Catalytic activity/Vol]Alkaline phosphatase [Enzymatic activity/volume] in Serum or Hpmbrt34-466GtctpbolmOhio State East HospitalAppearance of UrineOrdered By: Jesse Valdez on 02-07-7600Zoggfqqbpr (U)Urine appearanceCleUniversity Hospitals Portage Medical CenterAspartate aminotransferase [Enzymatic activity/volume] in Serum or PlasmaOrdered By: Jesse Valdez on 70-17-4018CZX [Catalytic activity/Vol]14 U/IEdnkzx76-72 [facility] HospitalComment on above:Performed By: #### CMP, HS TROP, PTT, CK, BNP, PT, MG, TSH3, SCAN CBC ####[address] [address] USAAST [Catalytic activity/Vol]Aspartate aminotransferase [Enzymatic activity/volume] in Serum or Kvinix06-02QshwtskbnOhio State East HospitalAutomated basophil %Ordered By: Jesse Valdez on 42-02-7794Gbjhqbscy/100 WBC (Bld)0.3 %Normal.[facility] Comment on above:Performed By: #### CMP, HS TROP, PTT, CK, BNP, PT, MG, TSH3, SCAN CBC ####[address] [address] USAAutomated basophil countOrdered By: Jesse Valdez on 51-89-7877Ogthycecz (Bld) [#/Vol]0.0 10*3/uLNormal0.0-0.2FZanesville City HospitalComment on above:Performed By: #### CMP, HS TROP, PTT, CK, BNP, PT, MG, TSH3, SCAN CBC ####[address] Automated blood monocyte countOrdered By: Jesse Valdez on 09-17-2024 Monocytes (Bld) [#/Vol]0.6 10*3/uLNormal0.0-0.8[facility] Comment on above:Performed By: #### CMP, HS TROP, PTT, CK, BNP, PT, MG, TSH3, SCAN CBC ####[place] [address] USAAutomated eosinophil %Ordered By: Jesse Valdez on 09-17-2024 Eosinophils/100 WBC (Bld)2.1 %Normal.[facility] HospitalComment on above:Performed By: #### CMP, HS TROP, PTT, CK, BNP, PT, MG, TSH3, SCAN CBC ####[address] Automated eosinophil countOrdered By: Jesse Valdez on 56-75-3221Znmdvnstpue (Bld) [#/Vol]0.3 10*3/uLNormal0.0-0.45[facility] HospitalComment on above:Performed By: #### CMP, HS TROP, PTT, CK, BNP, PT, MG, TSH3, SCAN CBC ####[place] [id number] [place] Automated monocyte %Ordered By: Jesse Valdez on 11-22-0308Shwlyvybv/100 WBC (Bld)4.9 %Normal.[facility] HospitalComment on above:Performed By: #### CMP, HS TROP, PTT, CK, BNP, PT, MG, TSH3, SCAN CBC ####[place] [address] USAAutomated neutrophil %Ordered By: Jesse Valdez on 98-88-0642Nvbllwvslzi/100 WBC (Bld)87.9 % Normal.[facility] HospitalComment on above:Performed By: #### CMP, HS TROP, PTT, CK, BNP, PT, MG, TSH3, SCAN CBC ####[facility] [place] [address] USABNP ser/plasOrdered By: Jesse Valdez on 42-03-0433Llyemwgsacq peptide B (Bld) [Mass/Vol]660.0 pg/mLHigh5-100 [facility] HospitalComment on above:Result Comment: PERFORMED BY: [facility] [address] [place] [address] PATHOLOGIST DIRECTOR OF PHOTOGRAPHY LUIS DEE M.D.Performed By: #### CMP, HS TROP, PTT, CK, BNP, PT, MG, TSH3, SCAN CBC ####[place] [address] [place] [address] USABacteria [Presence] in Urine by AutomatedOrdered By: Jesse Valdez on 34-79-7094Nhgjwgsb Auto Ql (U)None seen [HPF]None SeenOhio State East HospitalBacteria Auto Ql (U)Bacteria [Presence] in Urine by AutomatedNone Seen [facility] HospitalBilirubin Test strip Ql (U)Ordered By: Jesse Valdez on 00-92-0766Hoyceprdp Ql (U)NegativeNegativeOhio State East HospitalBilirubin Ql (U)Bilirubin.total [Presence] in Urine by Test stripNegativeOhio State East HospitalBilirubin.total [Mass/volume] in Serum or PlasmaOrdered By: Jesse Valdez on 59-13-5278Jkahtngvp [Mass/Vol]0.4 mg/dLNormal0.3-1.0[facility] HospitalComment on above:Performed By: #### CMP, HS TROP, PTT, CK, BNP, PT, MG, TSH3, SCAN CBC ####[place] [address] [place] [address] [place] Bilirubin [Mass/Vol]Bilirubin.total [Mass/volume] in Serum or Plasma0.3-1.0 [facility] HospitalCT head/brain wo conon 38-18-9451KD head/brain wo [facility] [place] [address] [place] [address] CT Scan Report Signed Patient: Hailee Trivedi MR#: [id number] 306 : 1940 Acct:[id number] Age/Sex: 84 / F ADM Date: 09/17/24 Loc: ER Room: Type: [facility] ER Attending Dr: Copies to: Jesse [...] Armando Huynh M.D.09/17/2024 10:40 PM Dictation Location: [place] [address] Transcribed By: [facility] 09/17/24 7204 Dictated By: Armando Huynh II, MD 09/17/242232 Signed By: 09/17/24 224[facility] Physician GroupCalcium [Mass/volume] in Serum or PlasmaOrdered By: Jesse Valdez on 08-66-0113Sofmljr [Mass/Vol]7.7 mg/dL Low8.6-10.3FZanesville City HospitalComment on above:Performed By: #### CMP, HS TROP, PTT, CK, BNP, PT, MG, TSH3, SCAN CBC ####[place] [address] [place] [address] USACapillary blood glucose measurement by glucometer (mass/volume)Ordered By: Jesse Valdez on 95-91-1784Wpesntj [Mass/Vol]138 mg/dLNoProtestant Hospital Comment on above:Random Glucose Reference Range is [...] Serum or PlasmaOrdered By: Jesse Valdez on 27-27-1831OX4 [Moles/Vol]17.5 mmol/LLow21.0-31.0[facility] HospitalComment on above:Performed By: #### CMP, HS TROP, PTT, CK, BNP, PT, MG, TSH3, SCAN CBC ####[address] [address] USAChloride [Moles/volume] in Serum or PlasmaOrdered By: Jesse Valdez on 95-39-2183Tejbpokg [Moles/Vol]112 mmol/PFxiw51-391 [facility] HospitalComment on above:Performed By: #### CMP, HS TROP, PTT, CK, BNP, PT, MG, TSH3, SCAN CBC ####[place] [address] [place] [address] USAColor Auto (U)Ordered By: Jesse Valdez on 66-44-3941Syzim (U)Color of Urine by AutoYellowOhio State East HospitalColor of Urine by AutoOrdered By: Jesse Valdez on 09-17-2024 Color (U)YellowNormalYellowOhio State East HospitalComment on above: Order Comment: Name Collection Type:: Clean-Voided MidstreamPerformed By: #### ADDONUAPLUS ####[address] [address] USAComprehensive Metabolic Panelon 06-41-6942Wuegrki [Mass/Vol]2.7 g/dLLow 3.5-5.7The [facility] Physician GroupComment on above:Performed By: #### CMP, HS TROP, PTT, CK, BNP, PT, MG, TSH3, SCAN CBC ####[address] [address] USACreatinine Clr Calc Qibizamb59.35 NormalThe Formerly [facility] Physician GroupComment on above:Performed By: #### CMP, HS TROP, PTT, CK, BNP, PT, MG, TSH3, SCAN CBC ####[address] [address] USAGFR/1.73 sq M.predicted MDRD (S/P/Bld) [Vol rate/Area]17.388 mL/min/{1.73_m2}NormalThe [facility]ly [facility] Group Comment on above:Performed By: #### CMP, HS TROP, PTT, CK, BNP, PT, MG, TSH3, SCAN CBC ####[address] [address] USACreatine kinase [Enzymatic activity/volume] in Serum or PlasmaOrdered By: Jesse Valdez on 44-90-6361BT [Catalytic activity/Vol]25 U/NFve32-214 [facility] HospitalComment on above:Performed By: #### CMP, HS TROP, PTT, CK, BNP, PT, MG, TSH3, SCAN CBC ####[address] [address] USACK [Catalytic activity/Vol]Creatine kinase [Enzymatic activity/volume] in Serum or ClmpqyZyn42-917QlxhoszcoOhio State East HospitalCreatinine [Mass/volume] in Serum or PlasmaOrdered By: Jesse Valdez on 98-20-6443Akpkjpbrjp [Mass/Vol]2.66 mg/dLHigh0.60-1.20[facility] HospitalComment on above:Performed By: #### CMP, HS TROP, PTT, CK, BNP, PT, MG, TSH3, SCAN CBC ####[place] [address] [place] [address] USADipstick and Microscopicon 78-29-8444Wuqsdvbk,Urine None SeenNormalNone SeenThe [facility]ly [facility] Physician GroupComment on above:Order Comment: Name Collection Type:: Clean-Voided MidstreamPerformed By: #### ADDONUAPLUS ####[address] [address] USABilirubin,UrineNegativeNormalNegativeThe [facility] Comment on above:Order Comment: Name Collection Type:: Clean-Voided Midstream Performed By: #### ADDONUAPLUS ####[address] [address] USAGlucose Ql (U)NormalNormalNormalThe [facility] Physician GroupComment on above:Order Comment: Name Collection Type:: Clean- Voided MidstreamPerformed By: #### ADDONUAPLUS ####[address] [address] USAHyaline Casts,UrineNoneNormal0-8The [facility] Physician GroupComment on above:Order Comment: Name Collection Type:: Clean-Voided MidstreamPerformed By: #### ADDONUAPLUS ####[address] [address] USAMucus,UrineRareNormalThe [facility] Physician GroupComment on above:Order Comment: Name Collection Type:: Clean-Voided MidstreamResult Comment: PERFORMED BY: [facility] [address] [place] [address] PATHOLOGIST DIRECTOR OF PHOTOGRAPHY LUIS DEE M.D.Performed By: #### ADDONUAPLUS ####[address] [place] [address] USANitrite,UrineNegativeNormalNegativeThe [facility] Physician GroupComment on above:Order Comment: Name Collection Type:: Clean-Voided MidstreamPerformed By: #### ADDONUAPLUS ####[address] [address] USAOccult Blood,UrineNegative NormalNegativeThe [facility] Physician GroupComment on above:Order Comment: Name Collection Type:: Clean-Voided MidstreamResult Comment: PERFORMED BY: [facility] [address] [place] [address] PATHOLOGIST DIRECTOR OF PHOTOGRAPHY LUIS DEE M.D.Performed By: #### ADDONUAPLUS ####[address] [address] USARBC,Rxexn4-1Qpfbrh7-2Lue [facility] Physician GroupComment on above:Order Comment: Name Collection Type:: Clean- Voided MidstreamPerformed By: #### ADDONUAPLUS ####[address] [address] USASpecificy Heartwell,Urine1.023Normal 1.001-1.030The [facility] Physician GroupComment on above:Order Comment: Name Collection Type:: Clean-Voided MidstreamPerformed By: #### ADDONUAPLUS ####[address] [address] [place] Squamous Epithelial Cell,Lnpjp2-3Dqgldg8-9Zdx [facility] Physician GroupComment on above:Order Comment: Name Collection Type:: Clean-Voided MidstreamPerformed By: #### ADDONUAPLUS ####[address] [address] USAUrobilinogen,UrineNormalNormalNormalThe [facility] Physician GroupComment on above:Order Comment: Name Collection Type:: Clean- Voided MidstreamPerformed By: #### ADDONUAPLUS ####[address] [address] USAWBC CLUMP, UrineOccasionalHighNone SeenThe [facility]ly [facility] Physician GroupComment on above:Order Comment: Name Collection Type:: Clean-Voided MidstreamPerformed By: #### ADDONUAPLUS ####[facility] [place] [address] USAWBC,Rrwcl0-8Urfopw6-6 The [facility] Physician GroupComment on above:Order Comment: Name Collection Type:: Clean-Voided MidstreamPerformed By: #### ADDONUAPLUS ####[place] [address] [place] [address] USAECG 12 lead ECGon 30-84-8855XOP 12 lead ECGCHILDREN'S H[facility] Main [place] [id number] Electrocardiograph Report Signed Patient: Hailee Trivedi MR#: [id number] 306 : 1940 Acct:[id number] Age/Sex: 84 / F ADM Date: 09/18/24 Loc: Room: [address] [place] [address] Type: ADM INOo Attending Dr: Trent Patterson [...] ventricular response Confirmed by Jesse VALDEZ DO ([id number]) on 09/18/2024 11:57:16 PM Referred By: Electronically Signed By: Jesse VALDEZ DO Transcribed By: MUS Signed By Jesse Valdez DO 1 11/18/23 2357[facility] Physician GroupECG 12 lead ECGCHILDREN'S H[facility] FOR [facility] Main [address] [address] Electrocardiograph Report Signed Patient: Hailee Trivedi MR#: [id number] 306 : 1940 Acct:[id number] Age/Sex: 84 / F ADM Date: 09/17/24 [...] Atrial fibrillation Confirmed by Jesse VALDEZ DO ([id number]) on 09/18/2024 12:49:30 AM Referred By: Electronically Signed By: Jesse VALDEZ DO Transcribed By: MUS Signed By Jesse Valdez DO 1 11/18/23 0049[facility] Physician GroupEpithelial cells.squamous [#/area] in Urine sediment by Automated countOrdered By: Jesse Valdez on 34-91-2088Mznynylyfb cells.squamous Auto (Urine sed) [#/Area]1-2 [HPF]0-2 [facility] HospitalEpithelial cells.squamous Auto (Urine sed) [#/Area]Epithelial cells.squamous [#/area] in Urine sediment by Automated count 0-2FZanesville City HospitalErythrocyte distribution width [Ratio] by Automated countOrdered By: Jesse Valdez on 48-79-0540Eqsacbfemvf distribution width (RBC) [Ratio]14.3 %Losins45.9-15.3FZanesville City HospitalComment on above:Performed By: #### CMP, HS TROP, PTT, CK, BNP, PT, MG, TSH3, SCAN CBC ####[facility] [address] [place] [address] RUSTErythrocyte morphology finding [Identifier] in BloodOrdered By: Jesse Valdez on 60-56-6984QOE morphology finding Nom (Bld)RBC morphology NormalOhio State East HospitalErythrocytes [#/area] in Urine sediment by Automated countOrdered By: Jesse Valdez on 26-69-8264EGM Auto (Urine sed) [#/Area]1-2 [HPF]0-4FZanesville City HospitalRBC Auto (Urine sed) [#/Area]Erythrocytes [#/area] in Urine sediment by Automated count0-4FZanesville City HospitalErythrocytes [#/volume] in Blood by Automated count Ordered By: Jesse Valdez on 65-38-9453ZCB (Bld) [#/Vol]3.77 10*6/uLNormal 3.60-5.00[facility] HospitalComment on above:Performed By: #### CMP, HS TROP, PTT, CK, BNP, PT, MG, TSH3, SCAN CBC ####[facility] [place] [address] USAGlobulin Calc (S) [Mass/Vol] Ordered By: Jesse Valdez on 73-33-2204Rshygbdj (S) [Mass/Vol]Serum globulin measurement by calculation (mass/volume)[facility] Glucose Poct Glucometerson 77-46-4673Fqagjoi4Moe7: Cleaned MeterNoECU Health Edgecombe Hospital Physician GroupComment on above:Result Comment: PERFORMED BY: [facility] [address] [place] [address] PATHOLOGIST DIRECTOR OF PHOTOGRAPHY LUIS DEE M.D.Performed By: #### GLULS #### Point of Care testing ,Glucose [Mass/volume] in Serum or PlasmaOrdered By: Jesse Valdez on 46-89-0052Fgbogzn [Mass/Vol]141 mg/qGLeia09-422MqohgjrqhOhio State East Hospital Comment on above:ADA recommended reference rangeRandom [...] CK, BNP, PT, MG, TSH3, SCAN CBC ####[facility] [place] [address] USAGlucose [Mass/volume] in Urine by Test stripOrdered By: Jesse Valdez on 11-79-6284Yxbfykq Test strip (U) [Mass/Vol]Normal mg/dL NormalOhio State East HospitalGlucose Test strip (U) [Mass/Vol]Glucose [Mass/volume] in Urine by Test stripNormalOhio State East Hospital Hematocrit [Volume Fraction] of Blood by Automated countOrdered By: Jesse Valdez on 42-26-0379Iempwlwvyg (Bld) [Volume fraction]36.0 %Cnujcz31.0-46.4 [facility] HospitalComment on above:Performed By: #### CMP, HS TROP, PTT, CK, BNP, PT, MG, TSH3, SCAN CBC ####[facility] [address] [place] [id number] USAHemoglobin Test strip Ql (U)Ordered By: Jesse Valdez on 60-69-5926Bmhadvboga Ql (U)NegativeNegativeOhio State East HospitalHemoglobin Ql (U)Hemoglobin [Presence] in Urine by Test stripNegUniversity Hospitals Conneaut Medical CenterHemoglobin [Mass/volume] in Blood Ordered By: Jesse Valdez on 23-68-8148Amgfuvcfkj (Bld) [Mass/Vol]12.0 g/dL Mxfdui81.8-15.4FZanesville City HospitalComment on above:Performed By: #### CMP, HS TROP, PTT, CK, BNP, PT, MG, TSH3, SCAN CBC ####[facility] [address] [place] [address] USAHyaline casts [#/area] in Urine sediment by Automated countOrdered By: Jesse Valdez on 09-17-2024 Hyaline casts Auto (Urine sed) [#/Area]None [LPF]0-8[facility] HospitalHyaline casts Auto (Urine sed) [#/Area]Hyaline casts [#/area] in Urine sediment by Automated count0-8[facility] HospitalINR in Platelet poor plasma by Coagulation assayOrdered By: Jesse Valdez on 96-80-0870KBW Coag (PPP) [Relative time]1.5 {INR}[facility] Comment on above:INR Therapeutic Range A) Pre- [...] CK, BNP, PT, MG, TSH3, SCAN CBC ####[facility] [address] [place] [address] USAINR Coag (PPP) [Relative time]INR in Platelet poor plasma by Coagulation assayOhio State East Hospital Comment on above:INR Therapeutic Range A) [...] strip Ql (U)Ordered By: Jesse Valdez on 77-60-3930Xwweoko Ql (U)Ketones [Presence] in Urine by Test stripNegative [facility] HospitalKetones [Presence] in Urine by Test strip Ordered By: Jesse Valdez on 07-72-7357Qlqphuf Ql (U)NegativeNormalNegative [facility] HospitalComment on above:Order Comment: Name Collection Type:: Clean-Voided MidstreamPerformed By: #### ADDONUAPLUS ####[facility] [place] [address] USALactate [Moles/volume] in Serum or PlasmaOrdered By: Jesse Valdez on 09-17-2024 Lactate [Moles/Vol]0.9 mmol/LNormal0.5-2.2FZanesville City Hospital Comment on above:Result Comment: PERFORMED BY: [facility] [address] [place] [address] PATHOLOGIST DIRECTOR OF PHOTOGRAPHY LUIS DEE M.D.Performed By: #### LACTIC #### [facility] [address] [place] [id number] USALactate [Moles/Vol]Lactate [Moles/volume] in Serum or Plasma0.5-2.2FZanesville City HospitalLeukocyte clumps [Presence] in Urine by AutomatedOrdered By: Jesse Valdez on 06-50-5425Bruirbceo clumps Auto Ql (U)Occasional [LPF][facility] Leukocyte clumps Auto Ql (U)Leukocyte clumps [Presence] in Urine by Automated [facility] SpringfieldLeukocyte esterase [Presence] in Urine by Test stripOrdered By: Jesse Valdez on 41-69-5010Cfsypopxm esterase Test strip Ql (U)NegativeNormalNegativeOhio State East HospitalComment on above:Order Comment: Name Collection Type:: Clean-Voided MidstreamPerformed By: #### ADDONUAPLUS ####[facility] [address] [place] [id number] USALeukocyte esterase Test strip Ql (U)Leukocyte esterase [Presence] in Urine by Test stripNegUniversity Hospitals Conneaut Medical CenterLeukocytes [#/area] in Urine sediment by Automated countOrdered By: Jesse Valdez on 58-58-9369CBB Auto (Urine sed) [#/Area]3-4 [HPF]0-4 [facility] HospitalWBC Auto (Urine sed) [#/Area]Leukocytes [#/area] in Urine sediment by Automated count0-4FZanesville City HospitalLeukocytes [#/volume] corrected for nucleated erythrocytes in Blood by Automated counOrdered By: Jesse Valdez on 05-91-2646XVN corrected for nucl RBC Auto (Bld) [#/Vol]12.0 10*3/uLHigh3.8-11.6FZanesville City Hospital Leukocytes [#/volume] in Blood by Automated countOrdered By: Jesse Valdez on 76-47-8016YXA (Bld) [#/Vol]12.0 10*3/uLHigh3.8-11.6FZanesville City HospitalComment on above:Performed By: #### CMP, HS TROP, PTT, CK, BNP, PT, MG, TSH3, SCAN CBC ####[address] [address] USALymphocytes [#/volume] in Blood by Automated countOrdered By: Jesse Valdez on 37-75-2833Cibgzdykayi (Bld) [#/Vol]0.6 10*3/uLLow1.00-4.8[facility] HospitalComment on above:Performed By: #### CMP, HS TROP, PTT, CK, BNP, PT, MG, TSH3, SCAN CBC ####[address] [address] USALymphocytes/100 leukocytes in Blood by Automated countOrdered By: Jesse Valdez on 18-50-7418Bdisyibczgq/100 WBC (Bld)4.8 % Normal.[facility] HospitalComment on above:Performed By: #### CMP, HS TROP, PTT, CK, BNP, PT, MG, TSH3, SCAN CBC ####[address] [facility] [Entitic mass] by Automated count Ordered By: Jesse Valdez on 00-80-2769NJT (RBC) [Entitic mass]31.8 pgNormal 24.7-34.3FZanesville City HospitalComment on above:Performed By: #### CMP, HS TROP, PTT, CK, BNP, PT, MG, TSH3, SCAN CBC ####[address] [address] [facility] Auto (RBC) [Mass/Vol] Ordered By: Jesse Valdez on 09-46-7181NPQZ (RBC) [Mass/Vol]33.3 g/dL 32.0-35.0[facility] HospitalV [Entitic volume] by Automated countOrdered By: Jesse Valdez on 09-97-0383DGZ (RBC) [Entitic vol]95.5 fL Fpchlh13-999VbzraepwbOhio State East HospitalComment on above:Performed By: #### CMP, HS TROP, PTT, CK, BNP, PT, MG, TSH3, SCAN CBC ####[address] [place] [address] USAMagnesium [Mass/volume] in Serum or PlasmaOrdered By: Jesse Valdez on 99-59-9401Vcwnanfyn [Mass/Vol] 1.6 mg/dLLow1.9-2.7FZanesville City HospitalComment on above:Performed By: #### CMP, HS TROP, PTT, CK, BNP, PT, MG, TSH3, SCAN CBC ####[place] [address] [place] [address] USAMonocyte distribution width [Entitic volume] in Blood by AutomatedOrdered By: Jesse Valdez on 46-97-2485Jtwwkjgh distribution width Auto (Bld) [Entitic vol]29.77 %High 0.00-20.00[facility] HospitalComment on above:For adults in ED, MDW > 20.0 may be associated with a higher risk of sepsis during the first 12 h rs of hospital admissionMonocyte distribution width Auto (Bld) [Entitic vol] Monocyte distribution width [Entitic volume] in Blood by AutomatedHigh0.00-20.00 [facility] HospitalComment on above:For adults in ED, MDW > 20.0 may be associated with a higher risk of sepsis during the first 12 hrs of hospital admissionMucus [Presence] in Urine by AutomatedOrdered By: Jesse Valdez on 16-84-8215Guefa Auto Ql (U)Rare [LPF][facility] HospitalMucus Auto Ql (U)Mucus [Presence] in Urine by AutomatedOhio State East HospitalNatriuretic peptide B [Mass/Vol]Ordered By: Jesse Valdez on 73-84-4727Qspstqygbdq peptide B (Bld) [Mass/Vol]BNP ser/plasHigh5-100[facility] HospitalNeutrophils [#/volume] in Blood by Automated countOrdered By: Jesse Valdez on 99-34-7200Nkuxrarftcs (Bld) [#/Vol]10.6 10*3/uLHigh 1.8-7.7FZanesville City HospitalComment on above:Performed By: #### CMP, HS TROP, PTT, CK, BNP, PT, MG, TSH3, SCAN CBC ####[facility] [place] [address] USANitrite Test strip Ql (U)Ordered By: Jesse Valdez on 88-73-4612Dbfzawa Ql (U)NegativeNegativeOhio State East HospitalNitrite Ql (U)Nitrite [Presence] in Urine by Test stripNegative [facility] HospitalNo Panel InformationOrdered By: Jesse Valdez on 00-24-4157Rnfbw Gas Critical ValueSee commentOhio State East HospitalComment on above:Critical Value called on: 09/17/2024 at 22:50 Blood Gas Sample SiteVenAccess Hospital DaytonFiO221 %[facility] HospitalVenous Blood Base Excess-8.6 mmol/LLow-3.0-3.0[facility] HospitalVenous Blood Oxygen Ofjfyagbld75.2 %High73.0-76.0 [facility] HospitalVenous Blood Partial Pressure CO230.5 mm[Hg]Low 38.0-50.0[facility] HospitalVenous Blood pH7.347.32-7.43[facility] HospitalEstimated GFR (CKD-EPI)17.388 mL/MinOhio State East HospitalPharmacy Creatinine Clearance (Chem18.35[facility] HospitalBedside Glucose CommentGlu2: cleaned [facility] HospitalNucleated erythrocytes [Presence] in Blood by Automated countOrdered By: Jesse Valdez on 27-93-3021Aljpuqejt RBC Auto Ql (Bld)0.0 /100{WBC}0-0.5 [facility] HospitalPartial Thromboplastin Timeon 38-63-3503hNPG Coag (Bld) [Time]30.4 bLsdkti41.1-36.5The [facility] Physician GroupComment on above:Result Comment: A hematocrit value greater than 55% may lead to inaccurate results in coagulation testing. Patients having hematocrit values >55% require a special collection tube for coagulation studies. Please contact the laboratory at [phone] for redraw instructions. PERFORMED BY: [facility] [address] [place] [address] PATHOLOGIST DIRECTOR OF PHOTOGRAPHY LUIS DEE M.D.Performed By: #### CMP, HS TROP, PTT, CK, BNP, PT, MG, TSH3, SCAN CBC ####[facility] [place] [address] USAPlatelet adequacy [Presence] in Blood by Light microscopyOrdered By: Jesse Valdez on 49-66-4050Nxobhcoxr LM Ql (Bld)NormalTrinity Health System West CampusPlatelets LM Ql (Bld)Platelet adequacy [Presence] in Blood by Light microscopyNoProtestant HospitalPlatelet mean volume [Entitic volume] in Blood by Automated countOrdered By: Jesse Valdez on 19-53-2378Xzpsgysr mean volume (Bld) [Entitic vol]10.3 fLNormal6.3-10.7 [facility] HospitalComment on above:Performed By: #### CMP, HS TROP, PTT, CK, BNP, PT, MG, TSH3, SCAN CBC ####[address] [place] [address] USAPlatelet morphology finding [Identifier] in BloodOrdered By: Jesse Valdez on 14-20-2338Fujacrvm morphology finding Nom (Bld)NormalTrinity Health System West Campus Platelet morphology finding Nom (Bld)Platelet morphology finding [Identifier] in BloodTrinity Health System West CampusPlatelets [#/volume] in Blood by Automated countOrdered By: Jesse Valdez on 23-44-7457Zioigxhzl (Bld) [#/Vol]143 10*3/jDHzk460-828LvkggogqgOhio State East HospitalComment on above: Performed By: #### CMP, HS TROP, PTT, CK, BNP, PT, MG, TSH3, SCAN CBC ####[address] [address] [place] Potassium [Moles/volume] in Serum or PlasmaOrdered By: Jesse Valdez on 24-45-0532Apbuibyzg [Moles/Vol]3.9 mmol/LNormal3.5-5.1FZanesville City HospitalComment on above:Performed By: #### CMP, HS TROP, PTT, CK, BNP, PT, MG, TSH3, SCAN CBC ####[address] [address] USAProtein Test strip (U) [Mass/Vol]Ordered By: Jesse Nola on 01-51-2467Qyrkyek (U) [Mass/Vol]Protein [Mass/volume] in Urine by Test stripHigh NegativeOhio State East HospitalProtein [Mass/volume] in Serum or PlasmaOrdered By: Jesse Nola on 87-49-1209Noeyxpo [Mass/Vol]5.1 g/dLLow 6.4-8.9[facility] HospitalComment on above:Performed By: #### CMP, HS TROP, PTT, CK, BNP, PT, MG, TSH3, SCAN CBC ####[address] [place] [address] USAProtein [Mass/Vol]Protein [Mass/volume] in Serum or PlasmaLow6.4-8.9[facility] Protein [Mass/volume] in Urine by Test stripOrdered By: Jesse Valdez on 81-79-6283Hnfqyhq (U) [Mass/Vol]50 mg/dLHighNegativeOhio State East HospitalComment on above:Order Comment: Name Collection Type:: Clean-Voided MidstreamPerformed By: #### ADDONUAPLUS ####[address] [address] USAProthrombin time (PT)Ordered By: Jesse Valdez on 35-70-2548BB Coag (PPP) [Time]17.3 sHigh9.0-12.9[facility] HospitalComment on above:A hematocrit value greater than 55% may lead to inaccurate results in coagulation testing. Patientshaving hematocrit values >55% require a special collection tube for coagulation studies. Please contact the laboratory at [phone] for redraw instructions.Result Comment: A hematocrit value greater than 55% may lead to inaccurate results in coagulation testing. Patients having hematocrit values >55% require a special collection tube for coagulation studies. Please contact the laboratory at [phone] for redraw instructions.Performed By: #### CMP, HS TROP, PTT, CK, BNP, PT, MG, TSH3, SCAN CBC ####[address] [place] [address] USAPT Coag (PPP) [Time]Prothrombin time (PT)High9.0-12.9[facility] HospitalComment on above:A hematocrit value greater than 55% may lead to inaccurate results in coagulation testing. Patientshaving hematocrit values >55% require a special collection tube for coagulation studies. Please contact the laboratory at [phone] for redraw instructions.RBC morphologyOrdered By: Jesse Vadlez on 19-06-6023SIT morphology finding Nom (Bld)NormalNormal NormalOhio State East HospitalComment on above:Performed By: #### CMP, HS TROP, PTT, CK, BNP, PT, MG, TSH3, SCAN CBC ####[address] [address] USAScan and CBCon 02-06-9402Dkcd Corpuscular HGB Conc33.3 g/xTYpekat10.0-35.0[facility] Physician GroupComment on above:Performed By: #### CMP, HS TROP, PTT, CK, BNP, PT, MG, TSH3, SCAN CBC ####[address] [place] [address] [place] Monocytes/100 WBC (Bld)29.77 %High0.00-20.00[facility] Physician GroupComment on above:Result Comment: For adults in ED, MDW > 20.0 may be associated with a higher risk of sepsis during the first 12 hrs of hospital admissionPerformed By: #### CMP, HS TROP, PTT, CK, BNP, PT, MG, TSH3, SCAN CBC ####[address] [place] [address] USANRBC%0.0 /100{WBC}Normal0-0.5 [facility] Physician GroupComment on above:Performed By: #### CMP, HS TROP, PTT, CK, BNP, PT, MG, TSH3, SCAN CBC ####[address] [address] USAPlatelet EstimateNormalNormalNormalThe [facility] Physician GroupComment on above:Performed By: #### CMP, HS TROP, PTT, CK, BNP, PT, MG, TSH3, SCAN CBC ####[address] [place] [address] USAPlatelet MorphologyNormalNormalNoECU Health Edgecombe Hospital Physician GroupComment on above:Result Comment: PERFORMED BY: [facility] [address] [place] [address] PATHOLOGIST DIRECTOR OF PHOTOGRAPHY LUIS DEE M.D.Performed By: #### CMP, HS TROP, PTT, CK, BNP, PT, MG, TSH3, SCAN CBC ####[id number] USASerum globulin measurement by calculation (mass/volume)Ordered By: Jesse Valdez on 99-15-9148Dfhdgasw (S) [Mass/Vol]2.4 g/dLNoProtestant HospitalComment on above:Performed By: #### CMP, HS TROP, PTT, CK, BNP, PT, MG, TSH3, SCAN CBC ####[id number] USASerum or plasma albumin/globulin mass ratioOrdered By: Jesse Valdez on 44-71-1818Tlnhzlr/Globulin [Mass ratio]1.1 {ratio} NormalOhio State East HospitalComment on above:Performed By: #### CMP, HS TROP, PTT, CK, BNP, PT, MG, TSH3, SCAN CBC ####[id number] USAAlbumin/Globulin [Mass ratio]Serum or plasma albumin/globulin mass ratioTrumbull Memorial Hospitalerum or plasma anion gap determinationOrdered By: Jesse Valdez on 39-28-8477Olduk gap [Moles/Vol]10.4 mmol/LNormal6.0-15.0[facility] HospitalComment on above:Performed By: #### CMP, HS TROP, PTT, CK, BNP, PT, MG, TSH3, SCAN CBC ####[id number] USASodium [Moles/volume] in Serum or PlasmaOrdered By: Jesse Valdez on 09-17-2024 Sodium [Moles/Vol]136 mmol/TXwpdvn165-262XlgmhdqdvOhio State East Hospital Comment on above:Performed By: #### CMP, HS TROP, PTT, CK, BNP, PT, MG, TSH3, SCAN CBC ####[address] [place] [address] USASpecific gravity Test strip (U) [Rel density]Ordered By: Jesse Valdez on 79-09-6425Dlpdudyk gravity (U) [Rel density]1.0231.001-1.030Trumbull Memorial Hospitalpecific gravity (U) [Rel density]Specific gravity of Urine by Test strip1.001-1.030[facility] HospitalThyrotropin [Units/volume] in Serum or PlasmaOrdered By: Jesse Valdez on 07-56-8119IEM Qn3.69 m[IU]/L Normal0.45-5.33[facility] HospitalComment on above:Result Comment: PERFORMED BY: [address] [address] PATHOLOGIST DIRECTOR OF PHOTOGRAPHY LUIS DEE M.D.Performed By: #### CMP, HS TROP, PTT, CK, BNP, PT, MG, TSH3, SCAN CBC ####[address] [address] [facility] QnThyrotropin [Units/volume] in Serum or Plasma0.45-5.33[facility] HospitalTroponin I High Sensitivityon 22-49-6675Abchkzlu I High Sensitivity9.3 pg/mLNormal0.0-15.0[facility] Physician GroupComment on above: Result Comment: PERFORMED BY: [facility] [address] [place] [address] PATHOLOGIST DIRECTOR OF PHOTOGRAPHY LUIS DEE M.D.Performed By: #### CMP, HS TROP, PTT, CK, BNP, PT, MG, TSH3, SCAN CBC ####[address] [address] USATroponin I.cardiac [Mass/volume] in Serum or Plasma by Detection limit <= 0.01 ng/Ordered By: Jesse Valdez on 86-10-3761Utwhlpus I.cardiac DL <= 0.01 ng/mL [Mass/Vol]9.3 pg/mL0.0-15.0[facility] HospitalURINE CULTURE, ROUTINEon 51-36-3503Woyoyhmc identified Cx Nom (U) Urine Culture, Routine [facility] HealthcareBacteria identified Cx Nom (U)Mixed urogenital floraNOAK HealthcareBacteria identified Cx Nom (U)Less than 10,000 colonies/mLNOMS HealthcareBacteria identified Cx Nom (U)Performed at: - [facility] HealthcareBacteria identified Cx Nom (U)[address] [place], [place] [id number] [facility] HealthcareBacteria identified Cx Nom (U)Enamel Sprayer: Elpidio Delgado PhD, Phone: [phone] HealthcareCLINISYNCNMCALESTER REGIONAL HEALTH CENTER – [facility]ALE[facility] HealthcareUrea nitrogen [Mass/volume] in Serum or PlasmaOrdered By: Jesse Valdez on 11-81-1783Dxyp nitrogen [Mass/Vol]41 mg/dLHigh7-25[facility] HospitalComment on above:Performed By: #### CMP, HS TROP, PTT, CK, BNP, PT, MG, TSH3, SCAN CBC ####[facility] [address] [place] [address] USAUrine appearanceOrdered By: Jesse Valdez on 19-42-1252Uxbgvuwcas (U)ClearNormal ClearOhio State East HospitalComment on above:Order Comment: Name Collection Type:: Clean-Voided MidstreamPerformed By: #### ADDONUAPLUS ####[address] Urobilinogen Test strip (U) [Mass/Vol]Ordered By: Jesse Valdez on 70-20-3625Eidksfbidrkg (U) [Mass/Vol]Normal mg/dLNoProtestant HospitalUrobilinogen (U) [Mass/Vol]Urobilinogen [Mass/volume] in Urine by Test stripNoProtestant HospitalVenous Blood GasOrdered By: Jesse Valdez on 50-46-7638CV5 [Moles/Vol]16.9 mmol/LLow24.0-29.0[facility] HospitalComment on above:Performed By: #### VBG ####Point of Care testing,HCO3 (Bld) [Moles/Vol]15.9 mmol/LLow23.0-29.0[facility] HospitalComment on above:Performed By: #### VBG ####Point of Care testing,Venous Blood Gason 22-19-8572CebzvlpahisTrinitas Hospital Physician [facility] Comment on above:Result Comment: Critical Value called on: 09/17/2024 at 22:50 PERFORMED BY: [place] [address] PATHOLOGIST DIRECTOR OF PHOTOGRAPHY LUIS DEE M.D.Performed By: #### VBG ####Point of Care testing,VBG Base Excess -8.6 mmol/LLow-3.0-3.0[facility] Physician [facility] HospitalComment on above:Performed By: #### VBG ####Point of Care testing,VBG Draw SiteVenNacogdoches Medical Center Physician [facility] HospitalComment on above:Performed By: #### VBG ####Point of Care testing,VBG Frac Inspired O221 %NormalThe [facility]ly [facility] Physician [facility] HospitalComment on above:Performed By: #### VBG ####Point of Care testing,VBG Oxygen Hbodktbecs70.2 %High73.0-76.0[facility] Physician [facility] HospitalComment on above:Performed By: #### VBG ####Point of Care testing,VBG MPC169.5 mm[Hg]Low38.0-50.0[facility] Physician [facility] HospitalComment on above:Performed By: #### VBG ####Point of Care testing,VBG PH Venous PH7.59Hbmdih9.32-7.43[facility] Physician [facility] HospitalComment on above:Performed By: #### VBG ####Point of Care testing,XR chest 2V*on 42-10-0102FC chest 2V*[facility] [address] [address] XRay Report Signed Patient: Hailee Trivedi MR#: [id number] 306 : 1940 Acct:[id number] Age/Sex: 84 / F ADM Date: 09/17/24 Loc: ER Room: Type: [facility] ER Attending Dr: Copies to: Jesse Valdez DO Ordering Provider: Jesse Valdez DO Date of Service: 09/17/24 XR/XR chest 2V*: Weakness XR chest 2V* 09/17/2024 8:59 PM SIGNS AND SYMPTOMS: Increasing weakness PROTOCOL: Frontal and lateral radiograph of the chest COMPARISON: 01/08/2020 FINDINGS: The trachea is midline. There is a right-sided Gjnmmx-s-Yafg with the tip at the cavoatrial junction. The heart and mediastinal structures are within normal limits. The lung parenchyma is clear. The bony thorax is intact. Degenerative changes are noted in the shoulders. XR/XR chest 2V* IMPRESSION: No acute cardiopulmonary pathology. Chronic findings are noted as above. Impression dictated by: Armando Huynh M.D.09/17/2024 10:43 PM Dictation Location: [place] [address] Transcribed By: [facility] 09/17/242242 Dictated By: Armando Huynh II, MD 09/17/242239 Signed By: 09/17/242242[facility] Physician GroupaPTT in Platelet poor plasma by Coagulation assayOrdered By: Jesse Valdez on 44-35-1396sJAM Coag (PPP) [Time]Activated partial thromboplastin time (aPTT) in platelet poor plasma by coagulation a25.1-36.5FZanesville City HospitalComment on above:A hematocrit value greater than 55% may lead to inaccurate results in coagulation testing. Patientshaving hematocrit values >55% require a special collection tube for coagulation studies. Please contact the laboratory at [phone] for redraw instructions.pH Test strip (U)Ordered By: Jesse Valdez on 09-17-2024 pH (U)pH of Urine by Test strip5.0-9.0[facility] HospitalpH of Urine by Test stripOrdered By: Jesse Valdez on 39-18-3159tV (U)5.5 [pH] Normal5.0-9.0[facility] HospitalComment on above:Order Comment: Name Collection Type:: Clean-Voided MidstreamPerformed By: #### ADDONUAPLUS ####[facility] [address] [place] [address] RUST Basophils Auto (Bld) [#/Vol]on 05-62-1039Xevyxmnfz (Bld) [#/Vol]0.0 10 3/uL 0.0-0.1FZanesville City HospitalBasophils (Bld) [#/Vol]Automated basophil count0.0-0.1FZanesville City HospitalBasophils/100 WBC Auto (Bld)on 32-70-3606Lfouvdwlp/100 WBC (Bld)0.1 %Low0.2-2.0[facility] HospitalBasophils/100 WBC (Bld)Automated basophil %Low0.2-2.0[facility] HospitalEosinophils/100 WBC Auto (Bld)on 09-14-2024 Eosinophils/100 WBC (Bld)0.5 %Low0.9-7.0[facility] Eosinophils/100 WBC (Bld)Automated eosinophil %Low0.9-7.0[facility] HospitalErythrocyte distribution width Auto (RBC) [Ratio]on 09-14-2024 Erythrocyte distribution width (RBC) [Ratio]12.8 %11.0-15.0[facility] HospitalErythrocyte distribution width (RBC) [Ratio]Erythrocyte distribution width [Ratio] by Automated count11.0-15.0[facility] HospitalEstimated glomerular filtration rate (GFR) non- Americanon 87-25-6316DDD/1.73 sq M.predicted among non-blacks MDRD (S/P/Bld) [Vol rate/Area]16 mL/min/{1.73_m2}Low>=60 mL/min/1.73m [address] [place], [place] [address]GFR/1.73 sq M.predicted among non-blacks MDRD (S/P/Bld) [Vol rate/Area] Estimated glomerular filtration rate (GFR) non- AmericanLow>=60 mL/min/1.73m [address] [place], [place] [address]Globulin Calc (S) [Mass/Vol]on 74-38-9192Jnttsioc (S) [Mass/Vol]3.3 g/dLOhio State East Hospital Globulin (S) [Mass/Vol]Serum globulin measurement by calculation (mass/volume) [facility] HospitalHematocrit Auto (Bld) [Volume fraction]on 72-55-9966Bgwqoprsgo (Bld) [Volume fraction]37.5 %36.0-48.0[facility] HospitalHematocrit (Bld) [Volume fraction]Hematocrit [Volume Fraction] of Blood by Automated count36.0-48.0[facility] HospitalHemoglobin [Mass/volume] in Bloodon 05-14-5586Dqzeepgugg (Bld) [Mass/Vol]12.7 g/dL12.0-16.0 [facility] HospitalHemoglobin (Bld) [Mass/Vol]Hemoglobin [Mass/volume] in Blood12.0-16.0[facility] HospitalLaboratory - Chemistry and Chemistry - challengeon 26-74-8425Citdpoddw Ql (U)NegativeNEGATIVE [facility] HospitalGlucose (U) [Mass/Vol]NegativeNEGATIVEOhio State East HospitalKetones Ql (U)NegativeNEGATIVEOhio State East HospitalpH (U)6.0 [pH]5.0-9.0[facility]ull Memorial Hospitalpecific gravity (U) [Rel density]1.0201.005-1.025[facility] HospitalUrobilinogen Qn (U)0.2 {Marley'U}/dL0.2-1.0[facility] HospitalAlbumin [Mass/Vol]2.6 g/dLLow3.4-5.0[facility] HospitalALP [Catalytic activity/Vol]84 U/B00-795NeoyccroxOhio State East HospitalALT [Catalytic activity/Vol]32 U/K35-41OgslupnbwOhio State East HospitalAST [Catalytic activity/Vol]19 U/G33-55IwpeqieqhOhio State East HospitalBilirubin [Mass/Vol]0.3 mg/dL0.2-1.0[facility] HospitalCalcium [Mass/Vol]8.2 mg/dLLow 8.5-10.1FZanesville City HospitalChloride [Moles/Vol]111 mmol/LHigh 98-107[facility] HospitalCO2 [Moles/Vol]18.4 mmol/LLow21.0-32.0 [facility] HospitalCreatinine [Mass/Vol]2.86 mg/dLHigh0.55-1.02 [facility] HospitalGFR/1.73 sq M.predicted MDRD (S/P/Bld) [Vol rate/Area]19 mL/min/{1.73_m2}Low>=60 mL/min/1.73m 2FZanesville City HospitalGlucose [Mass/Vol]218 mg/eRVdyq46-705EwrujpwbxOhio State East Hospital Lipase [Catalytic activity/Vol]78.0 U/LHigh16.0-77.0[facility] HospitalPotassium [Moles/Vol]3.8 mmol/L3.5-5.1FZanesville City Hospital Protein [Mass/Vol]5.9 g/dLLow6.4-8.2FCleveland Clinic Fairview Hospitalodium [Moles/Vol]142 mmol/M267-514ZwrpguezcOhio State East HospitalTSH Qn1.683 m[IU]/L 0.358-3.740[facility] HospitalUrea nitrogen [Mass/Vol]47.0 mg/dL High7.0-18.0[facility] HospitalUrea nitrogen/Creatinine [Mass ratio]16.4 mg/mgOhio State East HospitalLaboratory - Hematology and Cell countson 66-67-2467Livmlqwd granulocytes/100 WBC (Bld)1.0 %High0.0-0.5 [facility] HospitalLaboratory - Specimen informationon 09-14-2024 Appearance (U)CLEARCLEARFZanesville City HospitalColor (U)LT. YELLOW YELLOWOhio State East HospitalLaboratory - Urinalysison 09-14-2024 Leukocyte esterase Test strip Ql (U)MODERATEAbnormalNEGATIVEOhio State East HospitalMucus Ql (Urine sed)NONE SEENNONE SEENOhio State East HospitalNitrite Ql (U)NegativeNEGATIVEOhio State East HospitalProtein Ql (U)TRACE mg/dLNEG/TRACEOhio State East HospitalLeukocytes [#/volume] corrected for nucleated erythrocytes in Blood by Automated counon 63-70-3618HMF corrected for nucl RBC Auto (Bld) [#/Vol]15.6 10 3/uLHigh4.0-11.0[facility] HospitalWBC corrected for nucl RBC Auto (Bld) [#/Vol]Leukocytes [#/volume] corrected for nucleated erythrocytes in Blood by Automated counHigh 4.0-11.0[facility] HospitalLymphocytes Auto (Bld) [#/Vol]on 15-08-8001Jnjgneauiba (Bld) [#/Vol]3.0 10 3/uL1.2-3.8[facility] HospitalLymphocytes (Bld) [#/Vol]Lymphocytes [#/volume] in Blood by Automated count1.2-3.8[facility] HospitalLymphocytes/100 WBC Auto (Bld)on 73-60-4592Iytynnvicsj/100 WBC (Bld)19.0 %Low20.5-60.0[facility] HospitalLymphocytes/100 WBC (Bld)Lymphocytes/100 leukocytes in Blood by Automated vqsohLob61.5-60.0[facility] HospitalH Auto (RBC) [Entitic mass] on 07-61-7859JXG (RBC) [Entitic mass]32.2 pg26.7-34.0[facility] (RBC) [Entitic mass]MCH [Entitic mass] by Automated count26.7-34.0 [facility] HospitalHC Auto (RBC) [Mass/Vol]on 77-29-9508DWIA (RBC) [Mass/Vol]33.9 g/dL29.9-35.2FUC West Chester HospitalHC (RBC) [Mass/Vol]MCHC [Mass/volume] by Automated count29.9-35.2FZanesville City HospitalMCV Auto (RBC) [Entitic vol]on 40-73-4982UDN (RBC) [Entitic vol] 94.9 fL81.0-99.0[facility] Memorial HospitalV (RBC) [Entitic vol]MCV [Entitic volume] by Automated count81.0-99.0[facility] Monocytes Auto (Bld) [#/Vol]on 35-74-1508Entrrtwae (Bld) [#/Vol]0.8 10 3/uL 0.3-0.8[facility] HospitalMonocytes (Bld) [#/Vol]Automated blood monocyte count0.3-0.8[facility] HospitalMonocytes/100 WBC Auto (Bld)on 52-23-5950Abjhlkyvr/100 WBC (Bld)5.1 %1.7-12.0[facility] HospitalMonocytes/100 WBC (Bld)Automated monocyte %1.7-12.0[facility] HospitalNeutrophils Auto (Bld) [#/Vol]on 12-18-9348Ptfkpkmcyhm (Bld) [#/Vol]11.6 10 3/uLHigh1.4-6.5FZanesville City HospitalNeutrophils (Bld) [#/Vol]Neutrophils [#/volume] in Blood by Automated countHigh1.4-6.5FZanesville City HospitalNeutrophils/100 WBC Auto (Bld)on 09-14-2024 Neutrophils/100 WBC (Bld)74.3 %43.0-75.0[facility] Neutrophils/100 WBC (Bld)Automated neutrophil %43.0-75.0[facility] HospitalNo Panel Informationon 64-42-7289Peyflmph I High Sensitivity6.9 pg/mL4.0-51.3FZanesville City HospitalComment on above:CUT-OFF POINTS HAVE BEEN ESTABLISHED [...] OTHER DIAGNOSTIC AND CLINICAL INFORMATION.Miscellaneous Test CommentSee commentOhio State East HospitalComment on above:Specimen Source: UCC - Urine,Clean Catch - Urine CC - 200.100Urine BacteriaTRACE #/HPFAbnormalNONE SEENOhio State East HospitalUrine Culture ReflexedYEGreene Memorial HospitalUrine Culture Result 1\R\ Urine Culture, RoutineOhio State East HospitalUrine Microscopic ReviewYESOhio State East HospitalUrine Occult BloodTRACE-I NEGATIVEOhio State East HospitalUrine Other CastsNONE SEEN #/LPFNONE SEENOhio State East HospitalUrine Other CrystalsNone Seen #/HPFNone SeenOhio State East HospitalUrine RBC2-5 #/HPFAbnormal0-2FZanesville City HospitalUrine Squamous Epithelial CellsFEW #/LPFAbnormalNONE/RARE [facility] HospitalUrine WBC5-10 #/HPFAbnormalNONE SEENOhio State East HospitalEosinophils # (Auto)0.1 10 3/uL0.0-0.7FZanesville City HospitalImmature Granulocyte # (Auto)0.15 10 3/uLHigh0.00-0.03[facility] HospitalPlatelet mean volume Auto (Bld) [Entitic vol]on 87-30-8607Ekhesogw mean volume (Bld) [Entitic vol]11.3 fL9.5-13.5FZanesville City HospitalPlatelet mean volume (Bld) [Entitic vol]Platelet mean volume [Entitic volume] in Blood by Automated count9.5-13.5FZanesville City HospitalPlatelets Auto (Bld) [#/Vol]on 36-09-3897Gplannnsu (Bld) [#/Vol] 229 10 3/nH288-685EgrhcdaamOhio State East HospitalPlatelets (Bld) [#/Vol] Platelets [#/volume] in Blood by Automated nmugs577-434PnsrvkovhOhio State East HospitalRBC Auto (Bld) [#/Vol]on 57-36-8944JBH (Bld) [#/Vol]3.95 10 6/uL Low4.20-5.40[facility] HospitalRBC (Bld) [#/Vol]Erythrocytes [#/volume] in Blood by Automated countLow4.20-5.40Trumbull Memorial Hospitalerum or plasma albumin/globulin mass ratioon 58-58-2330Rdyecly/Globulin [Mass ratio]0.8 {ratio}[facility] HospitalAlbumin/Globulin [Mass ratio]Serum or plasma albumin/globulin mass ratioTrumbull Memorial Hospitalerum or plasma anion gap determinationon 58-20-4893Mowls gap [Moles/Vol] 16.4 mmol/LFZanesville City HospitalAnion gap [Moles/Vol]Serum or plasma anion gap determinationOhio State East HospitalAlanine aminotransferase [Enzymatic activity/volume] in Serum or PlasmaOrdered By: Claire Choi on 11-72-8423XOK [Catalytic activity/Vol]10 U/LOhio State East HospitalALT [Catalytic activity/Vol]Alanine aminotransferase [Enzymatic activity/volume] in Serum or PlasmaOhio State East HospitalAlbumin [Mass/volume] in Serum or PlasmaOrdered By: Claire Choi on 39-35-4981Napqwlp [Mass/Vol]3.5 g/dL2.9-4.4FZanesville City Hospital Albumin [Mass/volume] in Serum or Plasma by Bromocresol green (BCG) dye binding methoOrdered By: Claire Choi on 74-95-5873Ccluvag BCG dye [Mass/Vol]3.9 g/dL3.5-5.7FZanesville City HospitalAlkaline phosphatase [Enzymatic activity/volume] in Serum or PlasmaOrdered By: Claire Choi on 08-01-2024 ALP [Catalytic activity/Vol]99 U/L19-993VghuszximOhio State [facility]AL[facility] [Catalytic activity/Vol]Alkaline phosphatase [Enzymatic activity/volume] in Serum or Cxonkm82-380RwtmjuebpOhio State East HospitalAspartate aminotransferase [Enzymatic activity/volume] in Serum or PlasmaOrdered By: Claire Choi on 22-76-4672FBI [Catalytic activity/Vol]14 U/W24-14HfgreekjqOhio State East HospitalAST [Catalytic activity/Vol]Aspartate aminotransferase [Enzymatic activity/volume] in Serum or Uxniea95-95PjvpikaxsOhio State East Hospital Basophils Auto (Bld) [#/Vol]Ordered By: Claire Choi on 24-73-7979Jzczjyxml (Bld) [#/Vol]0.0 10*3/uL0.0-0.2FZanesville City HospitalBasophils (Bld) [#/Vol]Automated basophil count0.0-0.2FZanesville City Hospital Basophils/100 WBC Auto (Bld)Ordered By: Claire Choi on 08-01-2024 Basophils/100 WBC (Bld)0.4 %.[facility] HospitalBasophils/100 WBC (Bld)Automated basophil %.[facility] HospitalBilirubin.total [Mass/volume] in Serum or PlasmaOrdered By: Claire Choi on 08-01-2024 Bilirubin [Mass/Vol]0.6 mg/dL0.3-1.0[facility] HospitalBilirubin [Mass/Vol]Bilirubin.total [Mass/volume] in Serum or Plasma0.3-1.0[facility] HospitalCBC W Auto Differential panel (Bld)on 17-49-7395Abpxonsck (Bld) [#/Vol]0.0 10*3/uL0.0 - 0.2 10*3/uLNOMS HealthcareBasophils/100 WBC Manual cnt (Syn fld)0.4 %.[facility] HealthcareEosinophils (Bld) [#/Vol]0.1 10*3/uL0.0 - 0.45 10*3/uLNOMS HealthcareEosinophils/100 WBC Manual cnt (Syn fld)1.2 %.[facility] HospitalErythrocyte distribution width (RBC) [Ratio]13.7 %11.9 - 15.3 %[facility] HospitalHematocrit (Bld) [Volume fraction]37.9 %34.0 - 46.4 %[facility] Hemoglobin (Bld) [Mass/Vol]12.7 g/dL11.8 - 15.4 g/dLLDS HOSPITAL HealthcareLymphocytes (Bld) [#/Vol]2.8 10*3/uL1.00 - 4.8 10*3/uLNOMS HealthcareLymphocytes/100 WBC Manual cnt (Syn fld)30.8 %.[facility] HospitalMCH (RBC) [Entitic mass]32.5 pg24.7 - 34.3 pgNOSaint John's Regional Health CenterMCHC (RBC) [Mass/Vol]33.6 g/dL32.0 - 35.0 g/dLSalem Memorial District HospitalMCV (RBC) [Entitic vol]96.6 fL80 - 100 fLLDS HOSPITAL HealthcareMonocytes (Bld) [#/Vol]0.7 10*3/uL0.0 - 0.8 10*3/uLNOMS Healthcare Monocytes+Macrophages/100 WBC Manual cnt (Syn fld)7.9 %.[facility] Neutrophils (Bld) [#/Vol]5.4 10*3/uL1.8 - 7.7 10*3/uLNOMS Healthcare Neutrophils/100 WBC Manual cnt (Syn fld)59.7 %.[facility] HealthcareNRBC0.1 /100{WBC}0 - 0.5 /100{WBC}[facility]OM[facility] HealthcarePlatelet mean volume (Bld) [Entitic vol]9.8 fL6.3 - 10.7 fLNOAK HealthcarePlatelets (Bld) [#/Vol]209 10*3/uL150 - 450 10*3/uLNOMS HealthcareRBC LM.HPF (Urine sed) [#/Area]3.93 /[HPF]3.60 - 5.00MS [facility] WBC (Bld) [#/Vol]9.0 10*3/uL3.8 - 11.6 10*3/uLNOMS HealthcareWBC LM.HPF (Urine sed) [#/Area]9.0 10*3/uL3.8 - 11.6 10*3/uLNOMS HealthcareNOAK HealthcareCalcium [Mass/volume] in Serum or PlasmaOrdered By: Claire Choi on 08-01-2024 Calcium [Mass/Vol]8.6 mg/dL8.6-10.3FZanesville City HospitalCarbon dioxide, total [Moles/volume] in Serum or PlasmaOrdered By: Claire Choi on 42-82-3934FI3 [Moles/Vol]22.2 mmol/L21.0-31.0[facility] Chloride [Moles/volume] in Serum or PlasmaOrdered By: Claire Choi on 12-06-5434Mhvcabii [Moles/Vol]108 mmol/HLmtb68-215OtvuvcvavOhio State East HospitalComprehensive metabolic panelon 31-14-6279Cvllsnu [Mass/Vol]3.9 g/dL3.5 - 5.7 g/dLSalem Memorial District HospitalAlbumin/Globulin [Mass ratio]1.3 {ratio}[facility] ALP [Catalytic activity/Vol]99 U/L34 - 104 U/LNOMS HealthcareALT [Catalytic activity/Vol]10 U/L7 - 52 U/LNOMS HealthcareAnion gap [Moles/Vol]12.7 mmol/L6.0 - 15.0NOMS HealthcareAST [Catalytic activity/Vol]14 U/L13 - 39 U/LNOMS HealthcareBilirubin [Mass/Vol]0.6 mg/dL0.3 - 1.0 mg/dLNOMS HealthcareCalcium [Mass/Vol]8.6 mg/dL8.6 - 10.3 mg/dLNOMS HealthcareChloride [Moles/Vol]108 mmol/L High98 - 107 mmol/LNOMS HealthcareCO2 [Moles/Vol]22.2 mmol/L21.0 - 31.0 mmol/L [facility] HealthcareCreatinine (U) [Mass/Vol]2.98 mg/dLHigh0.60 - 1.20 mg/dLNOMS HealthcareCREATININE CLR CALC QJEZHCNU04.51NOMS HealthcareGFR/1.73 sq M.predicted MDRD (S/P/Bld) [Vol rate/Area]15.173 mL/min/{1.73_m2}[facility] Globulin (S) [Mass/Vol]2.9 g/dLNOMS HealthcareGlucose [Mass/Vol]102 mg/eYAzdw87 - 100 mg/dLNOAK HealthcareComment on above:Random Glucose Reference Range is [...] Serum or PlasmaOrdered By: Claire Choi on 25-92-5379Ajnpawlxey [Mass/Vol]2.98 mg/dLHigh0.60-1.20[facility] Medical CenterEosinophils Auto (Bld) [#/Vol]Ordered By: Claire Choi on 70-36-3535Pnaglhnkuhz (Bld) [#/Vol]0.1 10*3/uL0.0-0.45[facility] HospitalEosinophils (Bld) [#/Vol]Automated eosinophil count 0.0-0.45[facility] HospitalEosinophils/100 WBC Auto (Bld)Ordered By: Claire Choi on 62-02-6319Ysfibfnlbkk/100 WBC (Bld)1.2 %.[facility] HospitalEosinophils/100 WBC (Bld)Automated eosinophil %.[facility] HospitalErythrocyte distribution width Auto (RBC) [Ratio]Ordered By: Claire Choi on 67-55-9664Wtrsfillxvr distribution width (RBC) [Ratio] 13.7 %11.9-15.3FZanesville City HospitalGlobulin Calc (S) [Mass/Vol] Ordered By: Claire Choi on 36-47-1206Rwjxvtmx (S) [Mass/Vol]2.9 g/dL [facility] HospitalGlobulin (S) [Mass/Vol]Serum globulin measurement by calculation (mass/volume)[facility] HospitalGlucose [Mass/volume] in Serum or PlasmaOrdered By: Claire Choi on 08-01-2024 Glucose [Mass/Vol]102 mg/iONids24-286IybxcpianOhio State East HospitalComment on above:ADA recommended reference rangeRandom Glucose Reference Range is dependent on time and content of last meal. Glucose of more than 200 mg/dL in a nonstressed, ambulatory subject supports the diagnosisof Diabetes Mellitus. Hematocrit Auto (Bld) [Volume fraction]Ordered By: Claire Choi on 95-31-0431Mrgorncbck (Bld) [Volume fraction]37.9 %34.0-46.4FZanesville City HospitalHemoglobin [Mass/volume] in BloodOrdered By: Claire Choi on 10-10-1933Ozrneetbmx (Bld) [Mass/Vol]12.7 g/dL11.8-15.4FZanesville City HospitalIgA [Mass/volume] in Serum or PlasmaOrdered By: Claire Choi on 10-54-6100NrD [Mass/Vol]241 mg/tM39-433IjzhpkqdbOhio State East HospitalIgE [Units/volume] in Serum or PlasmaOrdered By: Claire Choi on 58-91-5484KaY Qn13 [IU]/mL6-495Ohio [facility] HospitalComment on above:Performed at: [address] [id number] Director: Britton Valente MD, Phone: [phone] QnIgE [Units/volume] in Serum or Plasma 6-495Ohio [facility] HospitalComment on above:Performed at: [address] [id number] Director: Britton Valente MD, Phone: [phone] [Mass/volume] in Serum or PlasmaOrdered By: Claire Choi on 35-78-3288JoT [Mass/Vol]1009 mg/dB591-8366GvrldaerxOhio State East HospitalIgM [Mass/volume] in Serum or PlasmaOrdered By: Claire Choi on 69-32-1056WfJ [Mass/Vol]144 mg/nD42-984BjpoteardOhio State East HospitalComment on above:Performed at: [email or web address] Hospital at WayneZvrqua[address] [place] [id number] Director: Elpidio Delgado PhD, Phone: [phone] Immunoglobulin light chains.kappa.free [Mass/volume] in SerumOrdered By: Claire Choi on 37-97-9109Bilqdpjvcdnopr light chains.kappa.free (S) [Mass/Vol] 47.2 mg/LHigh3.3-19.4FZanesville City HospitalImmunoglobulin light chains.kappa.free/Immunoglobulin light chains.lambda.free [MassOrdered By: Claire Choi on 52-78-8693Wprwshcysibswy light chains.kappa.free/Immunoglobulin light chains.lambda.free (S) [Mass ratio]1.65 0.26-1.65Ohio [facility] HospitalComment on above:Performed at: [email or web address] [id number] Director: Elpidio Delgado PhD, Phone: [phone] light chains.lambda.free [Mass/volume] in Serum or PlasmaOrdered By: Claire Choi on 08-01-2024 Immunoglobulin light chains.lambda.free [Mass/Vol]28.6 mg/LHigh5.7-26.3FZanesville City HospitalLeukocytes [#/volume] corrected for nucleated erythrocytes in Blood by Automated counOrdered By: Claire Choi on 64-29-9244AKS corrected for nucl RBC Auto (Bld) [#/Vol]9.0 10*3/uL3.8-11.6 [facility] HospitalLymphocytes Auto (Bld) [#/Vol]Ordered By: Claire Choi on 96-31-6545Lbxkexsllgp (Bld) [#/Vol]2.8 10*3/uL1.00-4.8 [facility] HospitalLymphocytes (Bld) [#/Vol]Lymphocytes [#/volume] in Blood by Automated count1.00-4.8[facility] Lymphocytes/100 WBC Auto (Bld)Ordered By: Claire Choi on 08-01-2024 Lymphocytes/100 WBC (Bld)30.8 %.[facility] HospitalLymphocytes/100 WBC (Bld)Lymphocytes/100 leukocytes in Blood by Automated count.[facility] Auto (RBC) [Entitic mass]Ordered By: Claire Choi on 59-37-9853JUA (RBC) [Entitic mass]32.5 pg24.7-34.3FUC [facility] HospitalHC Auto (RBC) [Mass/Vol]Ordered By: Claire Choi on 65-47-0347CSAM (RBC) [Mass/Vol]33.6 g/dL32.0-35.0[facility] HospitalMCV Auto (RBC) [Entitic vol]Ordered By: Claire Choi on 22-62-0078GQH (RBC) [Entitic vol]96.6 uD42-298DotvekshyOhio State East HospitalMonocytes Auto (Bld) [#/Vol]Ordered By: Claire Choi on 92-81-8772Zlgnmlwrs (Bld) [#/Vol] 0.7 10*3/uL0.0-0.8[facility] HospitalMonocytes (Bld) [#/Vol] Automated blood monocyte count0.0-0.8[facility] Monocytes/100 WBC Auto (Bld)Ordered By: Claire Choi on 08-01-2024 Monocytes/100 WBC (Bld)7.9 %.[facility] HospitalMonocytes/100 WBC (Bld)Automated monocyte %.[facility] HospitalNeutrophils Auto (Bld) [#/Vol]Ordered By: Claire Choi on 18-54-9552Jjgbzoiobcz (Bld) [#/Vol]5.4 10*3/uL1.8-7.7FZanesville City HospitalNeutrophils (Bld) [#/Vol]Neutrophils [#/volume] in Blood by Automated count1.8-7.7FZanesville City HospitalNeutrophils/100 WBC Auto (Bld)Ordered By: Claire Choi on 49-66-9085Cbetwbbbrbj/100 WBC (Bld)59.7 %.[facility] HospitalNeutrophils/100 WBC (Bld)Automated neutrophil %.[facility] HospitalNo Panel InformationOrdered By: Claire Choi on 08-01-2024 Estimated GFR (CKD-EPI)15.173 mL/MinOhio State East HospitalPharmacy Creatinine Clearance (Chem16.51[facility] HospitalProtein Electrophoresis M-SpikeNot observed g/dLNot [facility] SouthProtein Electrophoresis NoteComment.[facility] Comment on above:Protein electrophoresis scan will follow via computer,mail, or director of architecture delivery.Not observed g/dLNot ObservedOhio State East Hospital Nucleated erythrocytes [Presence] in Blood by Automated countOrdered By: Claire Choi on 62-15-0968Pzjweiged RBC Auto Ql (Bld)0.1 /100{WBC}0-0.5FZanesville City HospitalNucleated RBC Auto Ql (Bld)Nucleated erythrocytes [Presence] in Blood by Automated count0-0.5FZanesville City Hospital Platelet mean volume Auto (Bld) [Entitic vol]Ordered By: Claire Choi on 98-64-1830Nvvrwbmq mean volume (Bld) [Entitic vol]9.8 fL6.3-10.7FZanesville City HospitalPlatelets Auto (Bld) [#/Vol]Ordered By: Claire Choi on 37-77-6518Cihavbyed (Bld) [#/Vol]209 10*3/lQ554-928AzpcgkrbqOhio State East HospitalPotassium [Moles/volume] in Serum or PlasmaOrdered By: Claire Choi on 65-34-9491Iqktyxxwp [Moles/Vol]4.9 mmol/L3.5-5.1FZanesville City HospitalProtein [Mass/volume] in Serum or PlasmaOrdered By: Claire Choi on 90-16-1688Xwqeplm [Mass/Vol]6.8 g/dL6.4-8.9[facility] HospitalProtein [Mass/Vol]6.5 g/dL6.0-8.5FZanesville City Hospital Protein [Mass/Vol]Protein [Mass/volume] in Serum or Plasma6.0-8.5FZanesville City HospitalRBC Auto (Bld) [#/Vol]Ordered By: Claire Choi on 13-06-0134FRW (Bld) [#/Vol]3.93 10*6/uL3.60-5.00[facility] Hospitalerum free kappa light chain measurementOrdered By: Claire Choi on 61-59-1094Umfbqjoloaeyec light chains.kappa.free (S) [Mass/Vol]Immunoglobulin light chains.kappa.free [Mass/volume] in SerumHigh3.3-19.4FCleveland Clinic Fairview Hospitalerum globulin measurement (mass/volume)Ordered By: Claire Choi on 59-23-4367Lkhafgly (S) [Mass/Vol]3.0 g/dL2.2-3.9[facility] HospitalGlobulin (S) [Mass/Vol]Serum globulin measurement (mass/volume) 2.2-3.9[facility] Hospitalerum immunofixation electrophoresis Ordered By: Claire Choi on 77-99-1017Dvuij ImmunofixationComment.[facility] HospitalComment on above:No monoclonality detected.Serum immunofixation electrophoresisComment.[facility] Hospitalerum immunoglobulin free kappa light chains/immunoglobulin free lambda light chains Ordered By: Claire Choi on 33-18-3988Vzadugavgmxscu light chains.kappa.free/Immunoglobulin light chains.lambda.free (S) [Mass ratio] Immunoglobulin light chains.kappa.free/Immunoglobulin light chains.lambda.free [Mass0.26-1.65[facility] HospitalComment on above:Performed at: [email or web address] [id number] Director: Elpidio Delgado PhD, Phone: [phone] or plasma IgA measurement (mass/volume) Ordered By: Claire Choi on 08-17-9024NqV [Mass/Vol]IgA [Mass/volume] in Serum or Hjoupv42-443TqorhgiteTrumbull Memorial Hospitalerum or plasma IgG measurement (mass/volume)Ordered By: Claire Choi on 53-78-9711GjJ [Mass/Vol]IgG [Mass/volume] in Serum or Cgluci721-5147MwqurefkfTrumbull Memorial Hospitalerum or plasma IgM measurement (mass/volume)Ordered By: Claire Choi on 66-64-6627LuR [Mass/Vol]IgM [Mass/volume] in Serum or Nilmdf41-946 [facility] HospitalComment on above:Performed at: [employer] [address] [id number] Director: Elpidio Delgado PhD, Phone: [phone] or plasma albumin measurement (mass/volume)Ordered By: Claire Choi on 85-46-8362Topxina [Mass/Vol]Albumin [Mass/volume] in Serum or Plasma2.9-4.4FCleveland Clinic Fairview Hospitalerum or plasma albumin/globulin mass ratioOrdered By: Claire Choi on 08-01-2024 Albumin/Globulin [Mass ratio]1.3 {ratio}[facility] Albumin/Globulin [Mass ratio]1.2 {ratio}0.7-1.7FZanesville City Hospital Albumin/Globulin [Mass ratio]Serum or plasma albumin/globulin mass ratio0.7-1.7 [facility] Hospitalerum or plasma alpha 1 globulin measurement by electrophoresis (mass/volume)Ordered By: Claire Choi on 89-37-5438Zaftc 1 globulin Elph [Mass/Vol]0.1 g/dL0.0-0.4FZanesville City HospitalAlpha 1 globulin Elph [Mass/Vol]Serum or plasma alpha 1 globulin measurement by electrophoresis (mass/volume)0.0-0.4FCleveland Clinic Fairview Hospitalerum or plasma alpha 2 globulin measurement by electrophoresis (mass/volume)Ordered By: Claire Choi on 61-44-1001Qnvvy 2 globulin Elph [Mass/Vol]0.9 g/dL0.4-1.0 [facility] HospitalAlpha 2 globulin Elph [Mass/Vol]Serum or plasma alpha 2 globulin measurement by electrophoresis (mass/volume)0.4-1.0[facility] Hospitalerum or plasma anion gap determinationOrdered By: Claire Choi on 36-32-2364Loumg gap [Moles/Vol]12.7 mmol/L6.0-15.0[facility] Hospitalerum or plasma beta globulin measurement by electrophoresis (mass/volume)Ordered By: Claire Choi on 67-40-7795Sbvh globulin Elph [Mass/Vol]0.9 g/dL0.7-1.3FZanesville City HospitalBeta globulin Elph [Mass/Vol]Serum or plasma beta globulin measurement by electrophoresis (mass/volume)0.7-1.3FCleveland Clinic Fairview Hospitalerum or plasma gamma globulin measurement by electrophoresis (mass/volume)Ordered By: Claire Choi on 33-07-8556Pklgb globulin Elph [Mass/Vol]1.0 g/dL0.4-1.8 [facility] HospitalGamma globulin Elph [Mass/Vol]Serum or plasma gamma globulin measurement by electrophoresis (mass/volume)0.4-1.8[facility] Hospitalerum or plasma immunoglobulin free lambda light chains measurement (mass/volume)Ordered By: Claire Choi on 08-01-2024 Immunoglobulin light chains.lambda.free [Mass/Vol]Immunoglobulin light chains.lambda.free [Mass/volume] in Serum or PlasmaHigh5.7-26.3FCleveland Clinic Fairview Hospitalodium [Moles/volume] in Serum or PlasmaOrdered By: Claire Choi on 56-66-1606Huqzct [Moles/Vol]138 mmol/O041-873RjbbzwdktOhio State East HospitalUrea nitrogen [Mass/volume] in Serum or PlasmaOrdered By: Claire Choi on 73-28-3422Ecex nitrogen [Mass/Vol]40 mg/dLHigh7-25 [facility] HospitalWBC Auto (Bld) [#/Vol]Ordered By: Claire Choi on 01-86-1864INA (Bld) [#/Vol]9.0 10*3/uL3.8-11.6FZanesville City HospitalWBC (Bld) [#/Vol]Leukocytes [#/volume] in Blood by Automated count 3.8-11.6FZanesville City HospitalErythrocyte distribution width Auto (RBC) [Ratio]on 30-06-8681Ajwyybwupxr distribution width (RBC) [Ratio]12.6 % 11.0-15.0[facility] HospitalEstimated glomerular filtration rate (GFR) non- Americanon 48-54-9054JKS/1.73 sq M.predicted among non-blacks MDRD (S/P/Bld) [Vol rate/Area]17 mL/min/{1.73_m2}Low>=60[facility] HospitalHematocrit Auto (Bld) [Volume fraction]on 95-58-8140Bxefruzfoj (Bld) [Volume fraction]40.7 %36.0-48.0[facility] Hemoglobin [Mass/volume] in Bloodon 05-31-8852Vauccgpsah (Bld) [Mass/Vol]13.2 g/dL12.0-16.0[facility] HospitalLaboratory - Chemistry and Chemistry - challengeon 72-44-0004Nfcbghqzy Ql (U)NegativeNEGATIVEOhio State East HospitalGlucose (U) [Mass/Vol]NegativeNEGATIVEOhio State East HospitalKetones Ql (U)NegativeNEGATIVEOhio State East HospitalpH (U)6.0 [pH]5.0-9.0[facility] Hospitalpecific gravity (U) [Rel density]1.0201.005-1.025[facility] HospitalUrobilinogen Qn (U)0.2 {Marley'U}/dL0.2-1.0[facility] HospitalAlbumin [Mass/Vol]3.2 g/dL Low3.4-5.0[facility] HospitalCalcium [Mass/Vol]8.6 mg/dL8.5-10.1 [facility] HospitalChloride [Moles/Vol]103 mmol/J18-872QiwqwhwcfOhio State East HospitalCO2 [Moles/Vol]26.2 mmol/L21.0-32.0[facility] HospitalCreatinine [Mass/Vol]2.67 mg/dLHigh0.55-1.02[facility] HospitalGFR/1.73 sq M.predicted MDRD (S/P/Bld) [Vol rate/Area]21 mL/min/{1.73_m2}Low>=60[facility] HospitalGlucose [Mass/Vol]139 mg/oWRhai09-189BlgdjicqbOhio State East HospitalMagnesium [Mass/Vol]2.0 mg/dL 1.8-2.4FZanesville City HospitalPotassium [Moles/Vol]5.2 mmol/LHigh 3.5-5.1FCleveland Clinic Fairview Hospitalodium [Moles/Vol]136 mmol/E273-726 [facility] HospitalUrate [Mass/Vol]6.4 mg/dLHigh2.6-6.0[facility] HospitalUrea nitrogen [Mass/Vol]38.0 mg/dLHigh7.0-18.0[facility] HospitalUrea nitrogen/Creatinine [Mass ratio]14.2 mg/mgOhio State East HospitalLaboratory - Specimen informationon 59-44-4035Pzzuiuozzq (U)CLEARCLEARFZanesville City HospitalColor (U)YELLOWYELLOWOhio State East HospitalLaboratory - Urinalysison 86-26-2269Avxjrryog esterase Test strip Ql (U)MODERATEAbnormalNEGATIVEOhio State East HospitalMucus Ql (Urine sed)TRACEAbnormalNONE SEENOhio State East HospitalNitrite Ql (U)NegativeNEGATIVEOhio State East HospitalProtein (U) [Mass/Vol]85.7 mg/dLHigh<=11.9[facility] HospitalProtein Ql (U)30 mg/dLAbnormal NEG/TRACEOhio State East HospitalLeukocytes [#/volume] corrected for nucleated erythrocytes in Blood by Automated counon 26-82-4062UXF corrected for nucl RBC Auto (Bld) [#/Vol]7.9 10 3/uL4.0-11.0[facility] MCH Auto (RBC) [Entitic mass]on 95-01-6437XAY (RBC) [Entitic mass]31.6 pg 26.7-34.0[facility] HospitalMCHC Auto (RBC) [Mass/Vol]on 36-34-9388PPZR (RBC) [Mass/Vol]32.4 g/dL29.9-35.2FZanesville City HospitalMCV Auto (RBC) [Entitic vol]on 24-38-4698FES (RBC) [Entitic vol]97.4 fL 81.0-99.0[facility] HospitalNo Panel Informationon 66-89-2728Pwgly BacteriaMODERATE #/HPFAbnormalNONE [facility] CenterUrine Culture ReflexedYEGreene Memorial HospitalUrine Occult BloodTRACE-I NEGATIVEOhio State East HospitalUrine Other CastsNONE SEEN #/LPFNONE [facility] CenterUrine Other CrystalsNone Seen #/HPFNone [facility] CenterUrine Random Nbukvgrilc792.05 mg/dL 20.00-300.00[facility] HospitalUrine RBCNONE SEEN #/HPF0-2 [facility] HospitalUrine Squamous Epithelial CellsFEW #/LPF AbnormalNONE/RAREOhio State East HospitalUrine Transitional Epithelial CellsRARE #/LPFAbnormalNONE [facility] CenterUrine HVH82-94 #/HPFAbnormalNONE [facility]25-Hydroxy Vitamin D Total43.9 ng/mLOhio State East HospitalComment on above:<20 ng/mL Vit D tzxqdzyno68-<30 ng/mL Vit D lwlqadlrkadm53-655 ng/mL Vit D sufficient>100 ng/mL Potential ToxicityParathyroid Hormone (Intact)105 pg/qHNgcdzjzw50-91BtunqtfxeOhio State East HospitalComment on above:Performed at: CB - [facility] [id number] [place], [place] [id number] Director: Elpidio Delgado PhD, Phone: [phone] Level3.9 mg/dL2.6-4.7FZanesville City Hospital Platelet mean volume Auto (Bld) [Entitic vol]on 67-26-5513Cehcadfd mean volume (Bld) [Entitic vol]12.1 fL9.5-13.5FZanesville City HospitalPlatelets Auto (Bld) [#/Vol]on 70-22-9048Xegtbybqy (Bld) [#/Vol]188 10 3/wH909-886 [facility] HospitalRBC Auto (Bld) [#/Vol]on 42-45-0722QSZ (Bld) [#/Vol]4.18 10 6/uLLow4.20-5.40Tr[facility] Hospitalerum or plasma anion gap determinationon 62-08-5757Dckvg gap [Moles/Vol]12.0 mmol/LFZanesville City HospitalUrine protein/creatinine ratioon 06-27-2024 Protein/Creatinine (U) [Ratio]0.45[facility] HospitalCholesterol in LDL Calc [Mass/Vol]on 55-91-8562Fugxnrcnnsx in LDL [Mass/Vol]68.6 mg/dL [facility] HospitalComment on above:<100 mg/dl BIGVGSB265-459 mg/dl NEAR OR ABOVE RRKGHVS301-827 mg/dl BORDERLINE MAYC067-004 mg/dl HIGH>190 mg/dl VERY HIGHCholesterol in VLDL Calc [Mass/Vol]on 64-61-9239Cqympmutvri in VLDL [Mass/Vol]28.4 mg/dLOhio State East HospitalEstimated glomerular filtration rate (GFR) non- Americanon 65-17-3640PLI/1.73 sq M.predicted among non-blacks MDRD (S/P/Bld) [Vol rate/Area]17 mL/min/{1.73_m2}Low>=60 [facility] HospitalLaboratory - Chemistry and Chemistry - challengeon 71-52-5592Odxhewx [Mass/Vol]3.2 g/dLLow3.4-5.0[facility] HospitalCalcium [Mass/Vol]8.7 mg/dL8.5-10.1FZanesville City HospitalChloride [Moles/Vol]104 mmol/I07-714GdfzbchfhOhio State East Hospital Cholesterol [Mass/Vol]154 mg/dL<=200[facility] HospitalCholesterol in HDL [Mass/Vol]57 mg/kN59-73EoccesrxwOhio State East HospitalComment on above:> or =60 mg/dl - LOW CARDIOVASCULAR RISK<40 mg/dl - HIGH CARDIOVASCULAR RISKCO2 [Moles/Vol]26.2 mmol/L21.0-32.0[facility] Creatinine [Mass/Vol]2.71 mg/dLHigh0.55-1.02[facility] GFR/1.73 sq M.predicted MDRD (S/P/Bld) [Vol rate/Area]20 mL/min/{1.73_m2}Low>=60 [facility] HospitalGlucose [Mass/Vol]147 mg/mBArso53-412ErneushdfOhio State East HospitalPotassium [Moles/Vol]4.9 mmol/L3.5-5.1FCleveland Clinic Fairview Hospitalodium [Moles/Vol]140 mmol/Z978-550EtevtixjcOhio State East HospitalTriglyceride [Mass/Vol]142 mg/dL<=150[facility] HospitalUrea nitrogen [Mass/Vol]31.0 mg/dLHigh7.0-18.0[facility] HospitalUrea nitrogen/Creatinine [Mass ratio]11.4 mg/mgOhio [facility] Hospital Microalbumin [Mass/volume] in Urineon 28-86-2526Emsxivl DL <= 20 mg/L (U) [Mass/Vol]24.5 mg/dL<=30.0[facility] HospitalNo Panel Information on 228536-Ugrufjv Vitamin D Total46.7 ng/mLOhio State East HospitalComment on above:<20 ng/mL Vit D wznosoowp49-<30 ng/mL Vit D zydmtfowiwne60-594 ng/mL Vit D sufficient>100 ng/mL Potential ToxicityC-Peptide 3.7 ng/mL1.1-4.4Fire[facility] Medical CenterComment on above:C-Peptide reference interval is for fasting patients.Performed at: - [facility] [address] [id number] Director: Elpidio Delgado PhD, Phone: [phone] Level4.1 mg/dL2.6-4.7FZanesville City HospitalUrine Random Dlbbmsambg258.38 mg/dL20.00-300.00Tr[facility] Hospitalerum or plasma anion gap determinationon 00-30-9358Nyxkx gap [Moles/Vol]14.7 mmol/L [facility] Hospitalerum or plasma total cholesterol/high density lipoprotein (HDL) cholesterol mass wilfred [id number].total/Cholesterol in HDL [Mass ratio]2.7 {ratio}[facility] HospitalComment on above:3.3 - 4.4 LOW RISK4.4 - 7.1 AVERAGE RISK7.1 - 11.0 MODERATE RISK>11.0 HIGH RISKUrine microalbumin/creatinine mass ratioon 32-11-2522Qopbqog/Creatinine DL <= 20 mg/L (U) [Mass ratio]104.9 mg/gHigh0.0-29.9[facility] HospitalComment on above:NO MICROALBUMINURIA 0-29 MG/GCLINICAL MICROALBUMINURIA 30-300 MG/GMACROALBUMINURIA >300 MG/GAlanine aminotransferase [Enzymatic activity/volume] in Serum or PlasmaOrdered By: Misti Connolly on 76-57-2349NDA [Catalytic activity/Vol]12 U/L7-52[facility] HospitalAlbumin [Mass/volume] in Serum or PlasmaOrdered By: Misti Connolly on 05-74-1112Smfixme [Mass/Vol]3.4 g/dL2.9-4.4FZanesville City HospitalAlbumin [Mass/volume] in Serum or Plasma by Bromocresol green (BCG) dye binding methoOrdered By: Misti Connolly on 45-17-6665Wcqbfdp BCG dye [Mass/Vol]3.6 g/dL3.5-5.7FZanesville City HospitalAlkaline phosphatase [Enzymatic activity/volume] in Serum or PlasmaOrdered By: Misti Connolly on 53-16-3574GHT [Catalytic activity/Vol]106 U/EYjrf88-950SzumsmmlrOhio State East HospitalAspartate aminotransferase [Enzymatic activity/volume] in Serum or PlasmaOrdered By: Misti Mohsen on 03-67-0377JHW [Catalytic activity/Vol]15 U/N90-10LlofckbdyOhio State East HospitalBasophils Auto (Bld) [#/Vol]Ordered By: Misti Connolly on 04-25-2024 Basophils (Bld) [#/Vol]0.0 10*3/uL0.0-0.2FZanesville City Hospital Basophils/100 WBC Auto (Bld)Ordered By: Misti Connolly on 64-02-4499Upvtwjxbx/100 WBC (Bld)0.6 %.[facility] HospitalBilirubin.total [Mass/volume] in Serum or PlasmaOrdered By: Misti Connolly on 92-87-3622Kcnfcjwnt [Mass/Vol]0.3 mg/dL0.3-1.0[facility] HospitalCalcium [Mass/volume] in Serum or PlasmaOrdered By: Misti Connolly on 35-56-9652Tlthgmw [Mass/Vol]8.6 mg/dL8.6-10.3 [facility] HospitalCarbon dioxide, total [Moles/volume] in Serum or PlasmaOrdered By: Misti Connolly on 17-00-1921TO3 [Moles/Vol]20.5 mmol/LLow 21.0-31.0[facility] HospitalChloride [Moles/volume] in Serum or PlasmaOrdered By: Misti Connolly on 60-26-9805Sgjbejsg [Moles/Vol]108 mmol/LHigh 98-107[facility] HospitalCreatinine [Mass/volume] in Serum or PlasmaOrdered By: Misti Connolly on 35-50-4395Mtdapyilyv [Mass/Vol]2.46 mg/dLHigh 0.60-1.20[facility] HospitalEosinophils Auto (Bld) [#/Vol]Ordered By: Misti Connolly on 68-87-1050Pxlzfazobkd (Bld) [#/Vol]0.1 10*3/uL0.0-0.45 [facility] HospitalEosinophils/100 WBC Auto (Bld)Ordered By: Misti Connolly on 57-33-5692Srhqksbzzea/100 WBC (Bld)1.4 %.[facility] HospitalErythrocyte distribution width Auto (RBC) [Ratio]Ordered By: Misti Mohsen on 19-01-0139Lztpynppzfm distribution width (RBC) [Ratio]14.0 %11.9-15.3 [facility] HospitalGlucose [Mass/volume] in Serum or PlasmaOrdered By: Misti Connolly on 80-82-6704Rgvezxx [Mass/Vol]242 mg/sBRmxt25-032LcopgenmwOhio State East HospitalComment on above:ADA recommended reference rangeRandom Glucose Reference Range is dependent on time and content of last meal. Glucose of more than 200 mg/dL in a nonstressed, ambulatory subject supports the diagnosisof Diabetes Mellitus.Hematocrit Auto (Bld) [Volume fraction]Ordered By: Misti Connolly on 07-08-4155Elxillbiqq (Bld) [Volume fraction]37.2 %34.0-46.4 [facility] HospitalHemoglobin [Mass/volume] in BloodOrdered By: Misti Connolly on 64-80-6922Pklcbyizxw (Bld) [Mass/Vol]12.4 g/dL11.8-15.4 [facility] HospitalIgA [Mass/volume] in Serum or PlasmaOrdered By: Claire Choi on 61-47-6890WhN [Mass/Vol]214 mg/aH76-541EstqbtebwOhio State East HospitalIgG [Mass/volume] in Serum or PlasmaOrdered By: Claire Choi on 67-91-9229KkI [Mass/Vol]906 mg/dJ278-0787TrdwdegudOhio State East HospitalIgM [Mass/volume] in Serum or PlasmaOrdered By: Claire Choi on 25-07-0935IgW [Mass/Vol]165 mg/qA50-113GgsapinqsOhio State East HospitalComment on above: Performed at: [address] [id number] Director: Elpidio Delgado PhD, Phone: [phone] light chains.kappa.free [Mass/volume] in SerumOrdered By: Misti Connolly on 04-25-2024 Immunoglobulin light chains.kappa.free (S) [Mass/Vol]48.0 mg/LHigh3.3-19.4 [facility] HospitalImmunoglobulin light chains.kappa.free/Immunoglobulin light chains.lambda.free [MassOrdered By: Misti Mohsen on 61-75-7724Udkmhfcgqbuvte light chains.kappa.free/Immunoglobulin light chains.lambda.free (S) [Mass ratio]1.580.26-1.65[facility] HospitalComment on above:Performed at: - [facility] [id number] Director: Elpidio Delgado PhD, Phone: [phone] Immunoglobulin light chains.lambda.free [Mass/volume] in Serum or PlasmaOrdered By: Misti Connolly on 02-16-8002Bwamjqaxlceupf light chains.lambda.free [Mass/Vol]30.4 mg/LHigh5.7-26.3FZanesville City HospitalLeukocytes [#/volume] corrected for nucleated erythrocytes in Blood by Automated coun Ordered By: Misti Connolly on 99-53-0565SMT corrected for nucl RBC Auto (Bld) [#/Vol]7.9 10*3/uL3.8-11.6FZanesville City HospitalLymphocytes Auto (Bld) [#/Vol]Ordered By: Misti Connolly on 04-13-8417Budsnaukthn (Bld) [#/Vol]2.5 10*3/uL1.00-4.8[facility] HospitalLymphocytes/100 WBC Auto (Bld) Ordered By: Misti Connolly on 23-26-0512Uepsnfjrfdt/100 WBC (Bld)31.0 %.[facility] Auto (RBC) [Entitic mass]Ordered By: Misti Connolly on 71-50-7944REE (RBC) [Entitic mass]32.1 pg24.7-34.3FUC [facility] HospitalHC Auto (RBC) [Mass/Vol]Ordered By: Misti Connolly on 85-38-7277XKTR (RBC) [Mass/Vol]33.3 g/dL32.0-35.0[facility] HospitalMCV Auto (RBC) [Entitic vol]Ordered By: Misti Mohsen on 01-32-7121GDH (RBC) [Entitic vol]96.4 cM13-866PvhbksbkyOhio State East HospitalMonocytes Auto (Bld) [#/Vol] Ordered By: Misti Mohsen on 48-47-1438Gvteoooxm (Bld) [#/Vol]0.5 10*3/uL0.0-0.8 [facility] HospitalMonocytes/100 WBC Auto (Bld)Ordered By: Misti Connolly on 35-17-8824Xauwyqbut/100 WBC (Bld)6.3 %.[facility] HospitalNeutrophils Auto (Bld) [#/Vol]Ordered By: Misti Connolly on 04-25-2024 Neutrophils (Bld) [#/Vol]4.8 10*3/uL1.8-7.7FZanesville City Hospital Neutrophils/100 WBC Auto (Bld)Ordered By: Misti Connolly on 04-25-2024 Neutrophils/100 WBC (Bld)60.7 %.[facility] HospitalNo Panel InformationOrdered By: Misti Mohsen on 88-03-9682Xxedjcrab GFR (CKD-EPI)19.217 mL/MinOhio State East HospitalPharmacy Creatinine Clearance (Chem20.35 [facility] HospitalProtein Electrophoresis M-SpikeNot observed g/dLNot ObservedOhio State East HospitalProtein Electrophoresis NoteSee comment.[facility] HospitalComment on above:Protein electrophoresis scan will follow via computer,mail, or director of architecture delivery.Performed at: [address] [id number] Director: Elpidio Delgado PhD, Phone: [phone] ImmunofixationSee comment.[facility] HospitalComment on above:No monoclonality detected.Nucleated erythrocytes [Presence] in Blood by Automated countOrdered By: Misti Connolly on 48-35-4018Aprcgqtpw RBC Auto Ql (Bld)0.1 /100{WBC}0-0.5FZanesville City HospitalPlatelet mean volume Auto (Bld) [Entitic vol]Ordered By: Misti Connolly on 13-63-4016Qmhfqrqh mean volume (Bld) [Entitic vol]10.2 fL6.3-10.7FZanesville City HospitalPlatelets Auto (Bld) [#/Vol]Ordered By: Misti Connolly on 45-71-4926Cnbjkngbx (Bld) [#/Vol]161 10*3/xX495-857MyzpmfwbcOhio State East HospitalPotassium [Moles/volume] in Serum or PlasmaOrdered By: Misti Connolly on 65-92-0368Tojobetkc [Moles/Vol]4.6 mmol/L 3.5-5.1FZanesville City HospitalProtein [Mass/volume] in Serum or Plasma Ordered By: Misti Connolly on 66-05-5218Boiksqb [Mass/Vol]6.3 g/dLLow6.4-8.9 [facility] HospitalProtein [Mass/Vol]6.1 g/dL6.0-8.5FZanesville City HospitalRBC Auto (Bld) [#/Vol]Ordered By: Misti Connolly on 18-04-0213VER (Bld) [#/Vol]3.86 10*6/uL3.60-5.00[facility] Hospitalerum globulin measurement by calculation (mass/volume)Ordered By: Misti Connolly on 12-34-5403Bzahbegw (S) [Mass/Vol]2.7 g/dL2.2-3.9[facility] Hospitalerum or plasma albumin/globulin mass ratioOrdered By: Misti Connolly on 43-11-2532Qxrlyhm/Globulin [Mass ratio]1.3 {ratio}0.7-1.7FCleveland Clinic Fairview Hospitalerum or plasma alpha 1 globulin measurement by electrophoresis (mass/volume)Ordered By: Misti Connolly on 43-28-9938Gcqcs 1 globulin Elph [Mass/Vol]0.1 g/dL0.0-0.4FCleveland Clinic Fairview Hospitalerum or plasma alpha 2 globulin measurement by electrophoresis (mass/volume)Ordered By: Misti Connolly on 09-55-5697Djphn 2 globulin Elph [Mass/Vol]0.9 g/dL0.4-1.0 [facility] Hospitalerum or plasma anion gap determinationOrdered By: Misti Connolly on 79-19-7213Xcsug gap [Moles/Vol]12.1 mmol/L6.0-15.0[facility] Hospitalerum or plasma beta globulin measurement by electrophoresis (mass/volume)Ordered By: Misti Mohsen on 72-83-1277Avtf globulin Elph [Mass/Vol]0.8 g/dL0.7-1.3FCleveland Clinic Fairview Hospitalerum or plasma gamma globulin measurement by electrophoresis (mass/volume)Ordered By: Misti Mohsen on 71-94-0221Lzglh globulin Elph [Mass/Vol]0.9 g/dL0.4-1.8 [facility] Hospitalodium [Moles/volume] in Serum or PlasmaOrdered By: Misti Mohsen on 41-07-1282Ymgcok [Moles/Vol]136 mmol/R787-794SnizldhbxOhio State East HospitalUrea nitrogen [Mass/volume] in Serum or PlasmaOrdered By: Misti Mohsen on 12-84-2137Hmnm nitrogen [Mass/Vol]31 mg/dLHigh7-25[facility] HospitalWBC Auto (Bld) [#/Vol]Ordered By: Misti Mohsen on 88-83-3757IHH (Bld) [#/Vol]7.9 10*3/uL3.8-11.6FZanesville City Hospital Laboratory - Chemistry and Chemistry - challengeon 93-11-3266Pyimtcmuw Ql (U) NegativeOhio State East HospitalGlucose (U) [Mass/Vol]NegativeOhio State East HospitalKetones Ql (U)NegativeOhio State East Hospital pH (U)6.0 [pH][facility] Hospitalpecific gravity (U) [Rel density]1.005[facility] HospitalUrobilinogen (U) [Mass/Vol]0 mg/dL [facility] HospitalLaboratory - Specimen informationon 04-12-2024 Appearance (U)cloudyOhio State East HospitalColor (U)yellowOhio State East HospitalLaboratory - Urinalysison 65-66-5458Zojkwoixg esterase Test strip Ql (U)70+[facility] HospitalNitrite Ql (U)Negative [facility] HospitalProtein Ql (U)30[facility] HospitalNo Panel Informationon 68-84-6969Cubuj Occult BloodNegativeOhio State East HospitalUrine culture routineOrdered By: Curt Clark on 03-44-7397Smjytdyg identified Cx Nom (U)2 DaysOhio State East Hospital Glucose mean value [Mass/volume] in Blood Estimated from glycated hemoglobinon 72-26-5656Rblerxu glucose Estimated from glycated hemoglobin (Bld) [Mass/Vol]166 mg/dLOhio State East HospitalLaboratory - Hematology and Cell countson 61-97-9543WgW4z (Bld) [Mass fraction]7.4 %4.5-6.2FZanesville City HospitalComment on above:ADA RECOMMENDED LIMIT 4.0 - 6.0ADA THERAPEUTIC TARGET < 7.0ACTION SUGGESTED> 7.0Alanine aminotransferase [Enzymatic activity/volume] in Serum or PlasmaOrdered By: Claire Choi on 17-63-5970NNT [Catalytic activity/Vol]8 U/L7-52[facility] HospitalAlbumin [Mass/volume] in Serum or PlasmaOrdered By: Claire Choi on 60-21-0748Piyfmbc [Mass/Vol]3.4 g/dL2.9-4.4FZanesville City HospitalAlbumin [Mass/volume] in Serum or Plasma by Bromocresol green (BCG) dye binding methoOrdered By: Claire Choi on 41-34-9996Rglzddq BCG dye [Mass/Vol]3.8 g/dL3.5-5.7FZanesville City HospitalAlkaline phosphatase [Enzymatic activity/volume] in Serum or PlasmaOrdered By: Claire Choi on 38-39-0926ADD [Catalytic activity/Vol]103 U/X96-974TznhalqpuOhio State East HospitalAspartate aminotransferase [Enzymatic activity/volume] in Serum or PlasmaOrdered By: Claire Choi on 01-17-2024 AST [Catalytic activity/Vol]12 U/B07-79XatbgysyaOhio State East Hospital Basophils Auto (Bld) [#/Vol]Ordered By: Claire Choi on 06-18-5848Unsrqylno (Bld) [#/Vol]0.1 10*3/uL0.0-0.2FZanesville City HospitalBasophils/100 WBC Auto (Bld)Ordered By: Claire Choi on 09-99-7457Ytbmuwjww/100 WBC (Bld) 0.6 %.[facility] HospitalBilirubin.total [Mass/volume] in Serum or PlasmaOrdered By: Claire Choi on 42-17-0880Pivufjcoh [Mass/Vol]0.5 mg/dL 0.3-1.0[facility] HospitalCalcium [Mass/volume] in Serum or Plasma Ordered By: Claire Choi on 80-03-4006Vfzztud [Mass/Vol]8.6 mg/dL8.6-10.3 [facility] HospitalCarbon dioxide, total [Moles/volume] in Serum or PlasmaOrdered By: Claire Choi on 28-02-7701JF0 [Moles/Vol]20.0 mmol/L 21.0-31.0[facility] HospitalChloride [Moles/volume] in Serum or PlasmaOrdered By: Claire Choi on 80-47-7439Xfnrotsy [Moles/Vol]112 mmol/L 98-107[facility] HospitalCreatinine [Mass/volume] in Serum or PlasmaOrdered By: Claire Choi on 91-34-8408Xijqpbekib [Mass/Vol]2.31 mg/dL 0.60-1.20[facility] HospitalEosinophils Auto (Bld) [#/Vol]Ordered By: Claire Choi on 98-75-8271Slgqhdzzstv (Bld) [#/Vol]0.2 10*3/uL0.0-0.45 [facility] HospitalEosinophils/100 WBC Auto (Bld)Ordered By: Claire Choi on 71-85-6293Szyqvedgyck/100 WBC (Bld)2.0 %.[facility] HospitalErythrocyte distribution width Auto (RBC) [Ratio]Ordered By: Claire Choi on 62-45-2030Bhimuqiokza distribution width (RBC) [Ratio]13.3 %11.9-15.3FZanesville City HospitalGlobulin Calc (S) [Mass/Vol]Ordered By: Claire Choi on 82-93-5721Jrmojnxe (S) [Mass/Vol]2.8 g/dLOhio State East HospitalGlucose [Mass/volume] in Serum or PlasmaOrdered By: Claire Choi on 15-98-3624Qlhelqw [Mass/Vol]150 mg/nY64-458SyidyzrvvOhio State East HospitalComment on above:ADA recommended reference rangeRandom Glucose Reference Range is dependent on time and content of last meal. Glucose of more than 200 mg/dL in a nonstressed, ambulatory subject supports the diagnosisof Diabetes Mellitus.Hematocrit Auto (Bld) [Volume fraction]Ordered By: Claire Choi on 64-01-7908Umuwqrxyod (Bld) [Volume fraction]37.6 %34.0-46.4 [facility] HospitalHemoglobin [Mass/volume] in BloodOrdered By: Claire Choi on 76-25-2014Mclylnexyk (Bld) [Mass/Vol]12.7 g/dL11.8-15.4 [facility] HospitalIgA [Mass/volume] in Serum or PlasmaOrdered By: Claire Choi on 48-11-6912CkN [Mass/Vol]214 mg/oN94-011WywzvauypOhio State East HospitalIgG [Mass/volume] in Serum or PlasmaOrdered By: Claire Choi on 14-54-8502ReO [Mass/Vol]896 mg/xT227-2019EbtltjkqqOhio State East HospitalIgM [Mass/volume] in Serum or PlasmaOrdered By: Claire Choi on 82-21-2536TaQ [Mass/Vol]187 mg/wA99-641PkvqcbfifOhio State East HospitalComment on above: Performed at: [facility] [id number] Director: Elpidio Delgado PhD, Phone: [phone] light chains.kappa.free [Mass/volume] in SerumOrdered By: Claire Choi on 04-48-6163Rbsmvfitiyextm light chains.kappa.free (S) [Mass/Vol]39.5 mg/L3.3-19.4 [facility] HospitalImmunoglobulin light chains.kappa.free/Immunoglobulin light chains.lambda.free [MassOrdered By: Claire Choi on 67-47-7416Widdjktkilxyjy light chains.kappa.free/Immunoglobulin light chains.lambda.free (S) [Mass ratio]1.73 0.26-1.65[facility] HospitalComment on above:Performed at: [facility] [id number] Director: Elpidio Delgado PhD, Phone: [phone] light chains.lambda.free [Mass/volume] in Serum or PlasmaOrdered By: Claire Choi on 01-17-2024 Immunoglobulin light chains.lambda.free [Mass/Vol]22.8 mg/L5.7-26.3FZanesville City HospitalLeukocytes [#/volume] corrected for nucleated erythrocytes in Blood by Automated counOrdered By: Claire Choi on 15-56-2861ZJH corrected for nucl RBC Auto (Bld) [#/Vol]8.5 10*3/uL3.8-11.6 [facility] HospitalLymphocytes Auto (Bld) [#/Vol]Ordered By: Claire Choi on 12-47-1528Itxsrsmhrns (Bld) [#/Vol]2.2 10*3/uL1.00-4.8 [facility] HospitalLymphocytes/100 WBC Auto (Bld)Ordered By: Claire Choi on 40-66-6940Vfepdisuflw/100 WBC (Bld)25.4 %.[facility] Auto (RBC) [Entitic mass]Ordered By: Claire Choi on 93-58-5418KIT (RBC) [Entitic mass]31.9 pg24.7-34.3FUC [facility] Chester HospitalHC Auto (RBC) [Mass/Vol]Ordered By: Claire Choi on 54-27-5254PIFJ (RBC) [Mass/Vol]33.7 g/dL32.0-35.0[facility] HospitalMCV Auto (RBC) [Entitic vol]Ordered By: Claire Choi on 16-44-1927LXC (RBC) [Entitic vol]94.8 wW10-662SbpthcplyOhio State East HospitalMonocytes Auto (Bld) [#/Vol]Ordered By: Claire Choi on 91-59-5984Lciydmqnl (Bld) [#/Vol] 0.6 10*3/uL0.0-0.8[facility] HospitalMonocytes/100 WBC Auto (Bld) Ordered By: Claire Choi on 92-33-6072Ldydkrdxf/100 WBC (Bld)7.4 %. [facility] HospitalNeutrophils Auto (Bld) [#/Vol]Ordered By: Claire Choi on 74-16-4107Rhmunkzkslm (Bld) [#/Vol]5.5 10*3/uL1.8-7.7 [facility] HospitalNeutrophils/100 WBC Auto (Bld)Ordered By: Claire Choi on 88-19-5044Rvdsrrcjgpi/100 WBC (Bld)64.6 %.[facility] HospitalNo Panel InformationOrdered By: Claire Choi on 86-38-8432Hikxhkyez GFR (CKD-EPI)20.724 mL/MinOhio State East Hospital Pharmacy Creatinine Clearance (Chem21.10[facility] HospitalProtein Electrophoresis M-SpikeComment: g/dLNot ObservedOhio State East HospitalComment on above:SPE shows a beta gamma band of restricted mobility due tofibrinogen in the plasma sample submitted.Protein Electrophoresis NoteSee comment.[facility] HospitalComment on above:Protein electrophoresis scan will follow via computer,mail, or director of architecture delivery.Performed at: [address] [id number] Director: Elpidio Delgado PhD, Phone: [phone] ImmunofixationSee comment.[facility] HospitalComment on above:No monoclonality detected.Nucleated erythrocytes [Presence] in Blood by Automated countOrdered By: Claire Choi on 62-95-3000Zqkxawjxb RBC Auto Ql (Bld)0.0 /100{WBC}0-0.5FZanesville City HospitalPlatelet mean volume Auto (Bld) [Entitic vol]Ordered By: Claire Choi on 90-60-3326Pmddcuuq mean volume (Bld) [Entitic vol]10.1 fL6.3-10.7FZanesville City HospitalPlatelets Auto (Bld) [#/Vol]Ordered By: Claire Choi on 16-36-4647Qjpprljky (Bld) [#/Vol]201 10*3/sD516-531AyxszjwyyOhio State East HospitalPotassium [Moles/volume] in Serum or PlasmaOrdered By: Claire Choi on 01-17-2024 Potassium [Moles/Vol]4.6 mmol/L3.5-5.1FZanesville City HospitalProtein [Mass/volume] in Serum or PlasmaOrdered By: Claire Choi on 01-17-2024 Protein [Mass/Vol]6.6 g/dL6.4-8.9[facility] HospitalProtein [Mass/Vol]6.5 g/dL6.0-8.5FZanesville City HospitalRBC Auto (Bld) [#/Vol] Ordered By: Claire Choi on 68-42-2240VSD (Bld) [#/Vol]3.96 10*6/uL 3.60-5.00[facility] Hospitalerum globulin measurement (mass/volume)Ordered By: Claire Choi on 50-40-0734Pvsflmcb (S) [Mass/Vol] 3.1 g/dL2.2-3.9[facility] Hospitalerum or plasma albumin/globulin mass ratioOrdered By: Claire Choi on 34-82-2473Ejgtwoz/Globulin [Mass ratio]1.4 {ratio}[facility] HospitalAlbumin/Globulin [Mass ratio] 1.1 {ratio}0.7-1.7FCleveland Clinic Fairview Hospitalerum or plasma alpha 1 globulin measurement by electrophoresis (mass/volume)Ordered By: Claire Choi on 78-43-5948Tnjql 1 globulin Elph [Mass/Vol]0.1 g/dL0.0-0.4FCleveland Clinic Fairview Hospitalerum or plasma alpha 2 globulin measurement by electrophoresis (mass/volume)Ordered By: Claire Choi on 24-01-7066Lkdtu 2 globulin Elph [Mass/Vol]0.8 g/dL0.4-1.0[facility] Hospitalerum or plasma anion gap determinationOrdered By: Claire Choi on 42-97-4967Vkbgr gap [Moles/Vol]10.6 mmol/L6.0-15.0[facility] Hospitalerum or plasma beta globulin measurement by electrophoresis (mass/volume)Ordered By: Claire Choi on 57-62-8645Iiqq globulin Elph [Mass/Vol]0.9 g/dL0.7-1.3 [facility] Hospitalerum or plasma gamma globulin measurement by electrophoresis (mass/volume)Ordered By: Claire Choi on 24-10-3271Lgpxg globulin Elph [Mass/Vol]1.2 g/dL0.4-1.8[facility] Hospitalodium [Moles/volume] in Serum or PlasmaOrdered By: Claire Choi on 01-17-2024 Sodium [Moles/Vol]138 mmol/A956-450AirvohbjyOhio State East HospitalUrea nitrogen [Mass/volume] in Serum or PlasmaOrdered By: Claire Choi on 48-01-8036Izmc nitrogen [Mass/Vol]41 mg/dL7-25[facility] WBC Auto (Bld) [#/Vol]Ordered By: Claire Choi on 97-75-2419IDE (Bld) [#/Vol]8.5 10*3/uL3.8-11.6FZanesville City HospitalAutomated epithelial cells count in urine sediment (number/area)on 37-44-7611Bxirpngtgu cells Auto (Urine sed) [#/Area]RARE #/LPFNONE/RAREOhio State East Hospital Automated leukocytes count in urine sediment (number/area)on 36-54-6679FFF Auto (Urine sed) [#/Area]0-2 #/HPF0-2FZanesville City HospitalAutomated urine specific gravity by refractometryon 08-40-1083Ersojxkj gravity Refractometry automated (U) [Rel density]1.0101.005-1.025[facility] Bilirubin Auto test strip (U) [Mass/Vol]on 28-04-7866Sootyjaaq (U) [Mass/Vol] NegativeNEGATIVEOhio State East HospitalCasts typing in urine sediment by light microscopyon 87-31-5235Auxpa LM Nom (Urine sed)NONE SEEN #/LPFNONE SEEN [facility] HospitalColor Auto (U)on 27-59-2887Gdvcr (U)LT. YELLOW YELLOWOhio State East HospitalErythrocyte distribution width Auto (RBC) [Ratio]on 58-77-4526Kuibymzxsei distribution width (RBC) [Ratio]12.5 %11.0-15.0 [facility] HospitalEstimated glomerular filtration rate (GFR) non- Americanon 09-06-9376AZY/1.73 sq M.predicted among non-blacks MDRD (S/P/Bld) [Vol rate/Area]18 mL/min/{1.73_m2}>=60[facility] HospitalHematocrit Auto (Bld) [Volume fraction]on 87-66-1630Frzgnprwlb (Bld) [Volume fraction]40.2 %36.0-48.0[facility] HospitalHemoglobin [Mass/volume] in Bloodon 27-95-8720Trcxmphfhl (Bld) [Mass/Vol]12.9 g/dL12.0-16.0 [facility] HospitalKetones Auto test strip (U) [Mass/Vol]on 81-28-3834Ccxjtnf (U) [Mass/Vol]NegativeNEGATIVEOhio State East HospitalLaboratory - Chemistry and Chemistry - challengeon 84-54-3767Zdkjqwm [Mass/Vol]3.2 g/dL3.4-5.0[facility] HospitalCalcium [Mass/Vol]8.4 mg/dL8.5-10.1FZanesville City HospitalChloride [Moles/Vol]108 mmol/L 98-107[facility] HospitalCO2 [Moles/Vol]24.3 mmol/L21.0-32.0 [facility] HospitalCreatinine [Mass/Vol]2.57 mg/dL0.55-1.02 [facility] HospitalGFR/1.73 sq M.predicted MDRD (S/P/Bld) [Vol rate/Area]22 mL/min/{1.73_m2}>=60[facility] HospitalGlucose [Mass/Vol]88 mg/fN26-657NjrtimwhqOhio State East HospitalMagnesium [Mass/Vol]2.1 mg/dL1.8-2.4FZanesville City HospitalPotassium [Moles/Vol]4.4 mmol/L 3.5-5.1FCleveland Clinic Fairview Hospitalodium [Moles/Vol]141 mmol/M677-864 [facility] HospitalUrate [Mass/Vol]5.9 mg/dL2.6-6.0[facility] HospitalUrea nitrogen [Mass/Vol]32.0 mg/dL7.0-18.0[facility] HospitalUrea nitrogen/Creatinine [Mass ratio]12.5 mg/mgOhio State East HospitalLaboratory - Urinalysison 65-29-5275Ojmphmt (U) [Mass/Vol]27.1 mg/dL<=11.9[facility] HospitalLeukocytes [#/volume] corrected for nucleated erythrocytes in Blood by Automated counon 26-77-9256TRP corrected for nucl RBC Auto (Bld) [#/Vol]8.3 10 3/uL4.0-11.0[facility] HospitalH Auto (RBC) [Entitic mass]on 19-83-5194VPN (RBC) [Entitic mass] 31.5 pg26.7-34.0[facility] HospitalMCHC Auto (RBC) [Mass/Vol]on 09-31-0252IRAP (RBC) [Mass/Vol]32.1 g/dL29.9-35.2FZanesville City HospitalMCV Auto (RBC) [Entitic vol]on 35-94-2888EGE (RBC) [Entitic vol]98.3 fL 81.0-99.0[facility] HospitalMucus LM Ql (Urine sed)on 12-27-2023 Mucus Ql (Urine sed)NONE SEENNONE SEENOhio State East HospitalNo Panel Informationon 491462-Zgnwhlk Vitamin D Total42.6 ng/mLOhio State East HospitalComment on above:<20 ng/mL Vit D acfikdage35-<30 ng/mL Vit D leubcjaewuwl76-385 ng/mL Vit D sufficient>100 ng/mL Potential Toxicity Parathyroid Hormone (Intact)78 pg/bE21-57ZlueyclrwOhio State East Hospital Comment on above:Performed at: [place] [id number] Director: Elpidio Delgado PhD, Phone: [phone] Level 4.2 mg/dL2.6-4.7FZanesville City HospitalUrine Random Ewmahnxtky63.98 mg/dL20.00-300.00[facility] HospitalPlatelet mean volume Auto (Bld) [Entitic vol]on 10-74-9439Mvtyncwd mean volume (Bld) [Entitic vol]11.3 fL 9.5-13.5FZanesville City HospitalPlatelets Auto (Bld) [#/Vol]on 87-69-2826Yydqbkftb (Bld) [#/Vol]195 10 3/bE866-836PunjbdlftOhio State East HospitalProtein Auto test strip (U) [Mass/Vol]on 84-44-3845Bxwgshp (U) [Mass/Vol] NegativeNEG/TRACEOhio State East HospitalRBC Auto (Bld) [#/Vol]on 91-46-6889SIJ (Bld) [#/Vol]4.09 10 6/uL4.20-5.40Tr[facility]ull Memorial Hospitalerum or plasma anion gap determinationon 26-46-9670Sspiw gap [Moles/Vol] 13.1 mmol/LFCleveland Clinic Fairview Hospitalpecific gravity Auto test strip (U) [Rel density]on 30-01-0644Omortkmq gravity (U) [Rel density]CLEARCLEARFZanesville City HospitalUrine bacteria detection by automated methodon 12-27-2023 Bacteria Auto Ql (U)TRACE #/HPFNONE SEENOhio State East HospitalUrine glucose measurement by test strip (mass/volume)on 48-97-9292Hcsfgpi Test strip (U) [Mass/Vol]NegativeNEGATIVEOhio State East HospitalUrine hemoglobin detection by automated test stripon 58-45-8159Ffcligncfq Auto test strip Ql (U) NegativeNEGSt. Mary's Medical CenterUrine nitrite detection by automated test stripon 31-95-9170Kezpvzw Auto test strip Ql (U)NegativeNEGSumma Health Barberton CampusUrine protein/creatinine ratioon 12-27-2023 Protein/Creatinine (U) [Ratio]0.45Ohio State East HospitalUrine sediment crystal identification by light microscopyon 87-34-7006Jmxuvugh LM Nom (Urine sed)None Seen #/HPFNone [facility] CenterUrine sediment leukocyte count by microscopy (number/high power field)on 55-79-2566OPC LM.HPF (Urine sed) [#/Area]0-2 #/HPFNONE [facility] Urobilinogen Auto test strip (U) [Mass/Vol]on 68-46-2470Wsytndmrkpxy Qn (U)0.2 {Marley'U}/dL0.2-1.0[facility] HospitalpH Auto test strip (U)on 29-62-4842vA (U)6.5 [pH]5.0-9.0[facility] HospitalUS Heart TransthoracicOrdered By: Russel Tolbert on 57-39-3695Zkrnib Valve Area by Continuity of Peak Velocity1.84[facility] Work Phone: Aortic Valve Area by Continuity of VTI1.69[facility] Work Phone: [phone] mn grad4.0[facility] Work Phone: [phone] pk grad8.8[facility] Work Phone: [phone] pk vel1.48[facility] Work Phone: [phone] A4C EF65.5[facility] Work Phone: [phone] Work Phone: [phone] diam2.00[facility] Work Phone: [phone] avg E/e' ratio17.40[facility] Work Phone: [phone] E/A ratio1.11[facility] Work Phone: [phone] Work Phone: [phone] Work Phone: [phone] Heart Transthoracicon 11-03-[address], [address] [facility], [place] [address] TRANSTHORACIC ECHOCARDIOGRAM REPORT Patient Name: HAILEE TRIVEDI Reading Physician: [id number] Tolbert MD Study Date: 11/02/2023 Ordering Provider: [id number] ELICIA RHODES MRN/PID: [id number] Fellow: Nurse: Date of /Age: 6 1940 / 83 years Tongue Presser: Allyson Dobson RDCS, RVT Gender: F Additional Staff: Height: 167.64 cm Admit Date: Weight: 88.00 kg Admission Status: BSA: 1.97 m2 Department Location: [facility] Blood Pressure: 140 /74 mmHg Study Type: TRANSTHORACIC ECHO (TTE) COMPLETE Diagnosis/ICD: Nonrheumatic aortic (valve) insufficiency-I35.1; 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; Pulmonary hypertension, unspecified-I27.20 Indication: Atrial Fibrillation, HTN, Hyperlipidemia, 2/6 Diastolic Murmur, CKD-Stage III-IV, Multiple Myeloma-in Remission, Cerebellar Infarct, Obesity CPT Codes: Echo Complete w Full Doppler-80191 Study Detail: The following Echo studies were [...] content not included)...Russel Valdivia MD - 11/03/[address], [address], [place] [address] TRANSTHORACIC ECHOCARDIOGRAM REPORT Patient Name: HAILEE TRIVEDI Reading Physician: [id number] Russel Tolbert MD Study Date: 11/02/2023 Ordering Provider: [id number] ELICIA RHODES MRN/PID: [id number] Fellow: Nurse: Date of /Age: 6 1940 / 83 years Tongue Presser: Allyson Dobson RDCS, T Gender: F Additional Staff: Height: 167.64 cm Admit Date: Weight: 88.00 kg Admission Status: BSA: 1.97 m2 Department Location: [facility] Blood Pressure: 140 /74 mmHg Study Type: TRANSTHORACIC ECHO (TTE) COMPLETE Diagnosis/ICD: Nonrheumatic aortic (valve) insufficiency-I35.1; 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; Pulmonary hypertension, unspecified-I27.20 Indication: Atrial Fibrillation, HTN, Hyperlipidemia, 2/6 Diastolic Murmur, CKD-Stage III-IV, Multiple Myeloma-in Remission, Cerebellar Infarct, Obesity CPT Codes: Echo Complete w Full Doppler-24500 Study Detail: The following Echo studies were [...] mmHg PIEDV: 2.22 m/s PADP: 22.7 mmHg [id number] Russel Tolbert MD Electronically signed on 11/03/2023 at 11:22:05 AM Final [facility] Work Phone: TRANSTHORACIC ECHO (TTE) COMPLETEon 11-02-2023 TRANSTHORACIC ECHO (TTE) [address], [address] [place] [address] TRANSTHORACIC ECHOCARDIOGRAM REPORT Patient Name: HAILEE TRIVEDI Reading Physician: [id number] Russel Tolbert MD Study Date: 11/02/2023 Ordering Provider: [id number] ELICIA RHODES MRN/PID: [id number] Fellow: Nurse: Date of /Age: 6 1940 / 83 years Tongue Presser: Allyson Dobson RDCS, RVT Gender: F Additional Staff: Height: 167.64 cm Admit Date: Weight: 88.00 kg Admission Status: BSA: 1.97 m2 Department Location: [facility] Blood Pressure: 140 /74 mmHg Study Type: TRANSTHORACIC ECHO (TTE) COMPLETE Diagnosis/ICD: Nonrheumatic aortic (valve) insufficiency-I35.1; 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; Pulmonary hypertension, unspecified-I27.20 Indication: Atrial Fibrillation, HTN, Hyperlipidemia, 2/6 Diastolic Murmur, CKD-Stage III-IV, Multiple Myeloma-in Remission, Cerebellar Infarct, Obesity CPT Codes: Echo Complete w Full Doppler-01668 Study Detail: The following Echo studies were [...] mmHg PIEDV: 2.22 m/s PADP: 22.7 mmHg [id number] Russel Tolbert MD Electronically signed on 11/03/2023 at 11:22:05 AM Final [facility] CenterAlanine aminotransferase [Enzymatic activity/volume] in Serum or PlasmaOrdered By: Claire Choi on 00-86-3270APM [Catalytic activity/Vol]9 U/L7-52[facility] HospitalAlbumin [Mass/volume] in Serum or PlasmaOrdered By: Claire Choi on 09-76-0569Qjtzcyl [Mass/Vol]3.6 g/dL2.9-4.4FZanesville City HospitalAlbumin [Mass/volume] in Serum or Plasma by Bromocresol green (BCG) dye binding methoOrdered By: Claire Choi on 66-86-6806Tyjgdvh BCG dye [Mass/Vol]3.8 g/dL3.5-5.7FZanesville City HospitalAlkaline phosphatase [Enzymatic activity/volume] in Serum or PlasmaOrdered By: Claire Choi on 22-33-4301GPN [Catalytic activity/Vol]94 U/N49-782EnwdkudtyOhio State East HospitalAspartate aminotransferase [Enzymatic activity/volume] in Serum or PlasmaOrdered By: Claire Choi on 52-42-2761HFX [Catalytic activity/Vol]14 U/Z26-88ExkknrwreOhio State East HospitalBasophils Auto (Bld) [#/Vol]Ordered By: Claire Choi on 43-53-1047Qruseulgl (Bld) [#/Vol]0.1 10*3/uL0.0-0.2FZanesville City HospitalBasophils/100 WBC Auto (Bld) Ordered By: Claire Choi on 47-79-7985Drzizmjjo/100 WBC (Bld)1.2 %. [facility] HospitalBilirubin.total [Mass/volume] in Serum or PlasmaOrdered By: Claire Choi on 79-22-0973Ictblizku [Mass/Vol]0.4 mg/dL 0.3-1.0[facility] HospitalCalcium [Mass/volume] in Serum or Plasma Ordered By: Claire Choi on 21-46-5189Qxsqoot [Mass/Vol]8.7 mg/dL8.6-10.3 [facility] HospitalCarbon dioxide, total [Moles/volume] in Serum or PlasmaOrdered By: Claire Choi on 90-70-9457JU8 [Moles/Vol]24.2 mmol/L 21.0-31.0[facility] HospitalChloride [Moles/volume] in Serum or PlasmaOrdered By: Claire Choi on 78-17-7787Hkaexvqo [Moles/Vol]108 mmol/L 98-107[facility] HospitalCreatinine [Mass/volume] in Serum or PlasmaOrdered By: Claire Choi on 39-38-0989Mzyxgqxhnb [Mass/Vol]2.36 mg/dL 0.60-1.20[facility] HospitalEosinophils Auto (Bld) [#/Vol]Ordered By: Claire Choi on 99-30-7754Fkizaxranup (Bld) [#/Vol]0.1 10*3/uL0.0-0.45 [facility] HospitalEosinophils/100 WBC Auto (Bld)Ordered By: Claire Choi on 36-79-0747Fogncklsgdt/100 WBC (Bld)1.1 %.[facility] Medical CenterErythrocyte distribution width Auto (RBC) [Ratio]Ordered By: Claire Choi on 01-50-1899Dteairqctam distribution width (RBC) [Ratio]14.6 %11.9-15.3FZanesville City HospitalGlobulin Calc (S) [Mass/Vol]Ordered By: Claire Choi on 59-77-7436Swomnurr (S) [Mass/Vol]2.5 g/dLOhio State East HospitalGlucose [Mass/volume] in Serum or PlasmaOrdered By: Claire Choi on 23-94-0465Orxisus [Mass/Vol]176 mg/jB42-678KqpzhafkjOhio State East HospitalComment on above:ADA recommended reference rangeRandom Glucose Reference Range is dependent on time and content of last meal. Glucose of more than 200 mg/dL in a nonstressed, ambulatory subject supports the diagnosisof Diabetes Mellitus.Hematocrit Auto (Bld) [Volume fraction]Ordered By: Claire Choi on 98-60-5776Edlrwtfovy (Bld) [Volume fraction]36.0 %34.0-46.4 [facility] HospitalHemoglobin [Mass/volume] in BloodOrdered By: Claire Choi on 36-92-3460Ujrjnepyhu (Bld) [Mass/Vol]11.8 g/dL11.8-15.4 [facility] HospitalIgA [Mass/volume] in Serum or PlasmaOrdered By: Claire Choi on 74-85-1707IjB [Mass/Vol]162 mg/nI84-322AqculctyuOhio State East HospitalIgG [Mass/volume] in Serum or PlasmaOrdered By: Claire Choi on 76-98-6212QuW [Mass/Vol]708 mg/gQ671-9500QiwfdwdlpOhio State East HospitalIgM [Mass/volume] in Serum or PlasmaOrdered By: Claire Choi on 70-68-6963XbV [Mass/Vol]117 mg/iF89-372KdoyzxktoOhio State East HospitalComment on above: Performed at: [facility] [id number] Director: Elpidio Delgado PhD, Phone: [phone] light chains.kappa.free [Mass/volume] in SerumOrdered By: Claire Choi on 78-33-8801Emzdenkhnrvyhy light chains.kappa.free (S) [Mass/Vol]39.7 mg/L3.3-19.4 [facility] HospitalImmunoglobulin light chains.kappa.free/Immunoglobulin light chains.lambda.free [MassOrdered By: Claire Choi on 39-26-7281Srpwdfkxuiwhex light chains.kappa.free/Immunoglobulin light chains.lambda.free (S) [Mass ratio]1.70 0.26-1.65[facility] HospitalComment on above:Performed at: [facility] [address] [id number] Director: Elpidio Delgado PhD, Phone: [phone] light chains.lambda.free [Mass/volume] in Serum or PlasmaOrdered By: Claire Choi on 10-18-2023 Immunoglobulin light chains.lambda.free [Mass/Vol]23.4 mg/L5.7-26.3FZanesville City HospitalLeukocytes [#/volume] corrected for nucleated erythrocytes in Blood by Automated counOrdered By: Claire Choi on 21-15-0392XVZ corrected for nucl RBC Auto (Bld) [#/Vol]8.2 10*3/uL3.8-11.6 [facility] HospitalLymphocytes Auto (Bld) [#/Vol]Ordered By: Claire Choi on 70-17-5736Rneylileogq (Bld) [#/Vol]2.5 10*3/uL1.00-4.8 [facility] HospitalLymphocytes/100 WBC Auto (Bld)Ordered By: Claire Choi on 69-20-5236Uycullltcgv/100 WBC (Bld)30.2 %.[facility] Auto (RBC) [Entitic mass]Ordered By: Claire Choi on 59-55-6939EYK (RBC) [Entitic mass]31.8 pg24.7-34.3FUC West Chester HospitalHC Auto (RBC) [Mass/Vol]Ordered By: Claire Choi on 99-92-4870CHIH (RBC) [Mass/Vol]32.8 g/dL32.0-35.0[facility] HospitalMCV Auto (RBC) [Entitic vol]Ordered By: Claire Choi on 86-75-9603EOR (RBC) [Entitic vol]96.9 zA65-697LqkimxoaxOhio State East HospitalMonocytes Auto (Bld) [#/Vol]Ordered By: Claire Choi on 98-19-0455Mqbqzhitg (Bld) [#/Vol] 0.6 10*3/uL0.0-0.8[facility] HospitalMonocytes/100 WBC Auto (Bld) Ordered By: Claire Choi on 61-48-1131Fbrawariy/100 WBC (Bld)7.6 %. [facility] HospitalNeutrophils Auto (Bld) [#/Vol]Ordered By: Claire Choi on 66-24-0800Nhvodvrwfkt (Bld) [#/Vol]4.9 10*3/uL1.8-7.7 [facility] HospitalNeutrophils/100 WBC Auto (Bld)Ordered By: Claire Choi on 15-30-1443Hsgfmhlmjrh/100 WBC (Bld)59.9 %.[facility] HospitalNo Panel InformationOrdered By: Claire Choi on 21-12-1439Tzdfwumxp GFR (CKD-EPI)20.198 mL/MinOhio State East Hospital Pharmacy Creatinine Clearance (Chem20.65[facility] HospitalProtein Electrophoresis M-SpikeNot observed g/dLNot ObservedOhio State East HospitalProtein Electrophoresis NoteSee comment.[facility] Comment on above:Protein electrophoresis scan will follow via computer,mail, or director of architecture delivery.Serum ImmunofixationSee comment.[facility] HospitalComment on above:No monoclonality detected.Nucleated erythrocytes [Presence] in Blood by Automated countOrdered By: Claire Choi on 73-63-7730Ouxpgtlmm RBC Auto Ql (Bld)0.1 /100{WBC}0-0.5FZanesville City HospitalPlatelet mean volume Auto (Bld) [Entitic vol]Ordered By: Claire Choi on 18-51-0146Getqzmwv mean volume (Bld) [Entitic vol]9.8 fL6.3-10.7 [facility] HospitalPlatelets Auto (Bld) [#/Vol]Ordered By: Claire Choi on 20-70-0697Rcsaogbfn (Bld) [#/Vol]199 10*3/vN398-570YuagtctouOhio State East HospitalPotassium [Moles/volume] in Serum or PlasmaOrdered By: Claire Choi on 24-59-1843Hykdwcdsa [Moles/Vol]4.9 mmol/L3.5-5.1FZanesville City HospitalProtein [Mass/volume] in Serum or PlasmaOrdered By: Claire Choi on 99-28-1761Qfdyctf [Mass/Vol]6.3 g/dL6.4-8.9[facility] HospitalProtein [Mass/Vol]6.4 g/dL6.0-8.5FZanesville City HospitalRBC Auto (Bld) [#/Vol]Ordered By: Claire Choi on 10-18-2023 RBC (Bld) [#/Vol]3.72 10*6/uL3.60-5.00[facility] Hospitalerum globulin measurement (mass/volume)Ordered By: Claire Choi on 10-18-2023 Globulin (S) [Mass/Vol]2.8 g/dL2.2-3.9[facility] Hospitalerum or plasma albumin/globulin mass ratioOrdered By: Claire Choi on 10-18-2023 Albumin/Globulin [Mass ratio]1.5 {ratio}[facility] Albumin/Globulin [Mass ratio]1.3 {ratio}0.7-1.7FZanesville City Hospital Serum or plasma alpha 1 globulin measurement by electrophoresis (mass/volume) Ordered By: Claire Choi on 28-48-0183Jucpx 1 globulin Elph [Mass/Vol]0.2 g/dL0.0-0.4FCleveland Clinic Fairview Hospitalerum or plasma alpha 2 globulin measurement by electrophoresis (mass/volume)Ordered By: Claire Choi on 64-46-1341Nyxlx 2 globulin Elph [Mass/Vol]0.9 g/dL0.4-1.0[facility] Hospitalerum or plasma anion gap determinationOrdered By: Claire Choi on 92-75-8866Kwiae gap [Moles/Vol]10.7 mmol/L6.0-15.0[facility] Hospitalerum or plasma beta globulin measurement by electrophoresis (mass/volume)Ordered By: Claire Choi on 31-21-5978Cyeo globulin Elph [Mass/Vol]0.9 g/dL0.7-1.3FCleveland Clinic Fairview Hospitalerum or plasma gamma globulin measurement by electrophoresis (mass/volume)Ordered By: Claire Choi on 65-42-9116Dhtvt globulin Elph [Mass/Vol]0.8 g/dL0.4-1.8 [facility] Hospitalodium [Moles/volume] in Serum or PlasmaOrdered By: Claire Choi on 18-10-0684Axmhyp [Moles/Vol]138 mmol/A243-002FfrickaykOhio State East HospitalUrea nitrogen [Mass/volume] in Serum or PlasmaOrdered By: Claire Choi on 05-51-2513Hgat nitrogen [Mass/Vol]35 mg/dL7-25[facility] HospitalWBC Auto (Bld) [#/Vol]Ordered By: Claire Choi on 27-96-6901PKH (Bld) [#/Vol]8.2 10*3/uL3.8-11.6FZanesville City Hospital ECG 12 [place] 73-54-0691Umvbib sinus rhythmCPSelect Medical Specialty [facility] [place] Work Phone: automated erythrocytes count in urine sediment (number/area)Ordered By: Claire Choi on 64-26-9428MCC Auto (Urine sed) [#/Area]0-1 [HPF]0-4FZanesville City HospitalAutomated leukocytes count in urine sediment (number/area)Ordered By: Claire Choi on 75-32-7572WKE Auto (Urine sed) [#/Area]0-1 [HPF]0-4FZanesville City HospitalBilirubin Test strip Ql (U)Ordered By: Claire Choi on 94-13-4485Eyjhetvev Ql (U) NegativeNegativeOhio State East HospitalColor Auto (U)Ordered By: Claire Choi on 73-50-9644Akplg (U)YellowYellowOhio State East HospitalKetones Auto test strip (U) [Mass/Vol]Ordered By: Claire Choi on 06-93-5242Fyihoym (U) [Mass/Vol]NegativeNegUniversity Hospitals Conneaut Medical CenterLaboratory - UrinalysisOrdered By: Claire Choi on 79-17-7620Vgckfmh casts LM Ql (Urine sed)None seen [LPF]0-8[facility] Nitrite Test strip Ql (U)Ordered By: Claire Choi on 59-43-2755Nhycfxu Ql (U)NegativeNegUniversity Hospitals Conneaut Medical CenterProtein Auto test strip (U) [Mass/Vol]Ordered By: Claire Choi on 98-70-6105Jqgitok (U) [Mass/Vol]100 mg/dLHighNegMartins Ferry Hospitalpecific gravity Auto test strip (U) [Rel density]Ordered By: Claire Choi on 52-34-9859Dulclbxi gravity (U) [Rel density]1.0181.001-1.030[facility] Squamous epithelial cells detection in urine sediment by light microscopyOrdered By: Claire Choi on 59-88-2400Gdfckgwrnp cells.squamous LM Ql (Urine sed)0- 1 [HPF]0-2FZanesville City HospitalUrine bacteria detection by automated methodOrdered By: Claire Choi on 91-83-1468Mdhrchlm Auto Ql (U)None seen None SeenOhio State East HospitalUrine clarity by refractometry automatedOrdered By: Claire Choi on 83-58-0521Efwtlzm Refractometry automated (U)ClearClearFZanesville City HospitalUrine glucose measurement by automated test strip (mass/volume)Ordered By: Claire Choi on 32-62-2217Fbfaoud Auto test strip (U) [Mass/Vol]Normal mg/dLNormalOhio State East HospitalUrine hemoglobin detection by automated test stripOrdered By: Claire Choi on 71-80-3145Dlhqvkwhts Auto test strip Ql (U)Negative NegativeOhio State East HospitalUrine leukocyte esterase detection by automated test stripOrdered By: Claire Choi on 13-23-6710Gdgoxhtun esterase Auto test strip Ql (U)NegativeNegativeOhio State East Hospital Urobilinogen Auto test strip (U) [Mass/Vol]Ordered By: Claire Choi on 39-40-4750Ljxeknlgejky (U) [Mass/Vol]Normal mg/dLNormalOhio State East HospitalpH Auto test strip (U)Ordered By: Claire Choi on 07-19-2023 pH (U)6.0 [pH]5.0-9.0[facility] HospitalAlanine aminotransferase [Enzymatic activity/volume] in Serum or PlasmaOrdered By: Misti Connolly on 08-23-5605GTW [Catalytic activity/Vol]12 U/L7-52[facility] HospitalAlbumin [Mass/volume] in Serum or PlasmaOrdered By: Misti Connolly on 88-45-0376Vqzzrht [Mass/Vol]3.5 g/dL2.9-4.4FZanesville City Hospital Albumin [Mass/volume] in Serum or Plasma by Bromocresol green (BCG) dye binding methoOrdered By: Misti Connolly on 51-39-9167Ruadvmg BCG dye [Mass/Vol]3.6 g/dL 3.5-5.7FZanesville City HospitalAlkaline phosphatase [Enzymatic activity/volume] in Serum or PlasmaOrdered By: Misti Connolly on 18-77-8206UGS [Catalytic activity/Vol]83 U/F67-734RjtitutmbOhio State East HospitalAspartate aminotransferase [Enzymatic activity/volume] in Serum or PlasmaOrdered By: Misti Connolly on 01-33-5525QNE [Catalytic activity/Vol]14 U/B93-58QhjpxfjumOhio State East HospitalBasophils Auto (Bld) [#/Vol]Ordered By: Misti Connolly on 47-96-3332Oudtvzelc (Bld) [#/Vol]0.0 10*3/uL0.0-0.2FZanesville City HospitalBasophils/100 WBC Auto (Bld)Ordered By: Misti Connolly on 07-12-2023 Basophils/100 WBC (Bld)0.4 %.[facility] HospitalBilirubin.total [Mass/volume] in Serum or PlasmaOrdered By: Misti Mohsen on 58-22-0865Dofhxqyyv [Mass/Vol]0.4 mg/dL0.3-1.0[facility] HospitalCalcium [Mass/volume] in Serum or PlasmaOrdered By: Misti Mohsen on 00-20-4438Kgtvspy [Mass/Vol]8.5 mg/dL8.6-10.3FZanesville City HospitalCarbon dioxide, total [Moles/volume] in Serum or PlasmaOrdered By: Misti Connolly on 07-12-2023 CO2 [Moles/Vol]22.7 mmol/L21.0-31.0[facility] HospitalChloride [Moles/volume] in Serum or PlasmaOrdered By: Misti Mohsen on 00-06-3816Caleozvx [Moles/Vol]111 mmol/Z07-333XryvnkucnOhio State East HospitalCreatinine [Mass/volume] in Serum or PlasmaOrdered By: Misti Connolly on 07-12-2023 Creatinine [Mass/Vol]2.50 mg/dL0.60-1.20[facility] Eosinophils Auto (Bld) [#/Vol]Ordered By: Misti Mohsen on 74-78-9101Mvmmigfxetq (Bld) [#/Vol]0.1 10*3/uL0.0-0.45[facility] Eosinophils/100 WBC Auto (Bld)Ordered By: Misti Connolly on 07-12-2023 Eosinophils/100 WBC (Bld)1.1 %.[facility] HospitalErythrocyte distribution width Auto (RBC) [Ratio]Ordered By: Misti Connolly on 07-12-2023 Erythrocyte distribution width (RBC) [Ratio]13.8 %11.9-15.3FZanesville City HospitalGlucose [Mass/volume] in Serum or PlasmaOrdered By: Misti Connolly on 30-19-6253Qqaablf [Mass/Vol]119 mg/wT19-421YwokpzjvwOhio State East Hospital Comment on above:ADA recommended reference rangeGlucose mean value [Mass/volume] in Blood Estimated from glycated hemoglobinOrdered By: Misti Connolly on 08-29-3887Twinduo glucose Estimated from glycated hemoglobin (Bld) [Mass/Vol]174 mg/dLOhio State East HospitalAverage glucose Estimated from glycated hemoglobin (Bld) [Mass/Vol]Glucose mean value [Mass/volume] in Blood Estimated from glycated hemoglobinOhio State East HospitalHematocrit Auto (Bld) [Volume fraction]Ordered By: Misti Mohsen on 00-67-8333Thirmbmebk (Bld) [Volume fraction]36.0 %34.0-46.4FZanesville City HospitalHemoglobin [Mass/volume] in BloodOrdered By: Misti Connolly on 34-48-3583Darwewabzs (Bld) [Mass/Vol]12.0 g/dL11.8-15.4FZanesville City HospitalImmunoglobulin light chains.kappa.free [Mass/volume] in SerumOrdered By: Misti Connolly on 56-10-8045Hiymazittpmqlv light chains.kappa.free (S) [Mass/Vol]40.5 mg/L3.3-19.4 [facility] HospitalImmunoglobulin light chains.kappa.free/Immunoglobulin light chains.lambda.free [MassOrdered By: Misti Connolly on 87-66-4465Xkacqywynmzgmk light chains.kappa.free/Immunoglobulin light chains.lambda.free (S) [Mass ratio]1.750.26-1.65[facility] HospitalComment on above:Performed at: - [facility] [id number] Director: Elpidio Delgado PhD, Phone: [phone] Immunoglobulin light chains.lambda.free [Mass/volume] in Serum or PlasmaOrdered By: Misti Connolly on 98-53-3604Mbzldonoxrevvn light chains.lambda.free [Mass/Vol]23.2 mg/L5.7-26.3FZanesville City HospitalLaboratory - Hematology and Cell countsOrdered By: Misti Connolly on 67-31-8565MgM2f (Bld) [Mass fraction]7.7 %High4.3-5.6FZanesville City HospitalComment on above:Increased risk for diabetes: 5.7 - 6.4diabetes: >6.4glycemic control for adults with diabetes: <7.0Leukocytes [#/volume] corrected for nucleated erythrocytes in Blood by Automated counOrdered By: Misti Connolly on 07-12-2023 WBC corrected for nucl RBC Auto (Bld) [#/Vol]7.3 10*3/uL3.8-11.6FZanesville City HospitalLymphocytes Auto (Bld) [#/Vol]Ordered By: Misti Connolly on 59-74-6627Rlaqfjrkdhi (Bld) [#/Vol]2.4 10*3/uL1.00-4.8[facility] HospitalLymphocytes/100 WBC Auto (Bld)Ordered By: Misti Connolly on 06-77-6333Candisskbns/100 WBC (Bld)33.7 %.[facility] Auto (RBC) [Entitic mass]Ordered By: Misti Connolly on 80-37-0172KDD (RBC) [Entitic mass]31.5 pg24.7-34.3FZanesville City HospitalMCHC Auto (RBC) [Mass/Vol]Ordered By: Misti Connolly on 59-59-9275GLNY (RBC) [Mass/Vol]33.2 g/dL 32.0-35.0[facility] HospitalMCV Auto (RBC) [Entitic vol]Ordered By: Misti Connolly on 87-47-8510HXT (RBC) [Entitic vol]95.0 jL87-428TpzzhqtxqOhio State East HospitalMonocytes Auto (Bld) [#/Vol]Ordered By: Misti Connolly on 64-59-4221Fwmglcugm (Bld) [#/Vol]0.5 10*3/uL0.0-0.8[facility] HospitalMonocytes/100 WBC Auto (Bld)Ordered By: Misti Connolly on 07-12-2023 Monocytes/100 WBC (Bld)6.2 %.[facility] HospitalNeutrophils Auto (Bld) [#/Vol]Ordered By: Misti Connolly on 49-35-2062Lpoctgcaacn (Bld) [#/Vol]4.3 10*3/uL1.8-7.7FZanesville City HospitalNeutrophils/100 WBC Auto (Bld) Ordered By: Misti Connolly on 71-48-9550Lldldijzkxv/100 WBC (Bld)58.6 %.[facility] HospitalNo Panel InformationOrdered By: Misti Mohsen on 01-33-6976Iaxlhhkdg GFR (CKD-EPI)18.848 mL/MinOhio State East Hospital Pharmacy Creatinine Clearance (Chem19.74[facility] HospitalProtein Electrophoresis M-SpikeNot observed g/dLNot ObservedOhio State East HospitalProtein Electrophoresis NoteSee comment.[facility] Comment on above:Protein electrophoresis scan will follow via computer,mail, or director of architecture delivery.Performed at: [email or web address] [id number] Director: Elpidio Delgado PhD, Phone: [phone] %High4.3-5.6 [facility] HospitalNucleated erythrocytes [Presence] in Blood by Automated countOrdered By: Misti Connolly on 78-19-8077Xmgqmchgx RBC Auto Ql (Bld)0.1 /100{WBC}0-0.5FZanesville City HospitalPlatelet mean volume Auto (Bld) [Entitic vol]Ordered By: Misti Connolly on 61-12-8991Cemwtfdp mean volume (Bld) [Entitic vol]9.5 fL6.3-10.7FZanesville City Hospital Platelets Auto (Bld) [#/Vol]Ordered By: Misti Connolly on 21-00-4648Kujkkhsrl (Bld) [#/Vol]198 10*3/rV325-232RcbpewmbwOhio State East HospitalPotassium [Moles/volume] in Serum or PlasmaOrdered By: Misti Connolly on 07-12-2023 Potassium [Moles/Vol]4.5 mmol/L3.5-5.1FZanesville City HospitalProtein [Mass/volume] in Serum or PlasmaOrdered By: Misti Connolly on 96-58-2476Hyafmda [Mass/Vol]6.3 g/dL6.4-8.9[facility] HospitalProtein [Mass/Vol]6.2 g/dL6.0-8.5FZanesville City HospitalRBC Auto (Bld) [#/Vol]Ordered By: Misti Connolly on 45-34-7479AXS (Bld) [#/Vol]3.79 10*6/uL3.60-5.00Tr[facility] Hospitalerum globulin measurement by calculation (mass/volume) Ordered By: Misti Jeanpamela on 23-68-9636Kveacnxj (S) [Mass/Vol]2.7 g/dL2.2-3.9 [facility] Hospitalerum or plasma albumin/globulin mass ratio Ordered By: Misti Mohsen on [id number]/Globulin [Mass ratio]1.3 {ratio} 0.7-1.7FC[facility] Fairview Hospitalerum or plasma alpha 1 globulin measurement by electrophoresis (mass/volume)Ordered By: Misti Mohsen on [id number] 1 globulin Elph [Mass/Vol]0.1 g/dL0.0-0.4FCleveland Clinic Fairview Hospitalerum or plasma alpha 2 globulin measurement by electrophoresis (mass/volume)Ordered By: Misti Mohsen on [id number] 2 globulin Elph [Mass/Vol]1.0 g/dL0.4-1.0[facility] Hospitalerum or plasma anion gap determinationOrdered By: Misti Mohsen on 98-91-6849Rsulk gap [Moles/Vol] 10.8 mmol/L6.0-15.0[facility] Hospitalerum or plasma beta globulin measurement by electrophoresis (mass/volume)Ordered By: Misti Mohsen on 91-54-9159Ryih globulin Elph [Mass/Vol]0.9 g/dL0.7-1.3FCleveland Clinic Fairview Hospitalerum or plasma gamma globulin measurement by electrophoresis (mass/volume)Ordered By: Misti Mohsen on 65-38-9841Uluri globulin Elph [Mass/Vol]0.6 g/dL0.4-1.8[facility] Hospitalodium [Moles/volume] in Serum or PlasmaOrdered By: Misti Mohsen on 66-95-4313Rkreqo [Moles/Vol]140 mmol/S164-547MpghtdziaOhio State East HospitalUrea nitrogen [Mass/volume] in Serum or PlasmaOrdered By: Misti Connolly on 61-38-5156Mghc nitrogen [Mass/Vol]33 mg/dL7-25Ohio State East HospitalWBC Auto (Bld) [#/Vol]Ordered By: Misti Connolly on 39-60-1464EVV (Bld) [#/Vol]7.3 10*3/uL3.8-11.6FZanesville City HospitalOffice Visit (Cardiology)on 95-07-1491Ldzxhy-up visit Diagnoses/Problems Assessed Persistent atrial fibrillation with [...] Weight Tips; Status:Complete - Retrospective Authorization; Done: [id number] Some eating tips that can help you lose weight.; Status:Complete - Retrospective Authorization; Done: [id number] SocHx: Never a smoker Tobacco Use Screening; Status:Complete; Done: [id number] Patient Instructions Please bring all medicines, vitamins, [...] assessment at [facility], which was negative. Couple of years ago. [...] Vital (more content not included)...NormalUH TouchworksTobacco Screening.on 17-08-2230Umozc depression screening assessmentNoWaldo Hospital [employer] DO Work Phone: Fall risk assessmenta) No falls within the last year [facility] [employer] 250 DO Work Phone: Tobacco use status CPHSb) NoMPullman Regional Hospital [employer] 250 DO Work Phone: LIPID PROFILEon [phone]-HDL RATIO NORMSEE BELOW NormalMount Carmel Health SystemComment on above:Result Comment: 3.3 - 4.4 LOW RISK 4.4 - 7.1 AVERAGE RISK 7.1 - 11.0 MODERATE RISK >11.0 HIGH RISKPerformed By: #### HH #### [facility] [address] [place] [address] Dr. Richa CheemaCholesterol [Mass/Vol]173 mg/dLNormal<=200The [facility] Comment on above:Performed By: #### HH #### [facility] [address] [address] [address] Richa CheemaCholesterol in HDL [Mass/Vol]63 mg/dLCritically vfrf87-19Ebg [facility] CenterComment on above:Performed By: #### HH #### [facility] [address] [address] [address] Richa Wrightesterol in LDL [Mass/Vol]75.6 mg/dLTrinity Health System West CampusComment on above:Performed By: #### HH #### [facility] [address] [address] [address] Richa Wrightestermata.total/Cholesterol in HDL [Mass ratio]2.7 {ratio} NormalMount Carmel Health SystemComvibra hospital of [facility] [place] on above:Performed By: #### HH #### [facility] [address] [address] [address] Richa Stallworth NORMAL> or = 60 mg/dl - LOW CARDIOVASCULAR RISK <40 mg/dl - HIGH CARDIOVASCULAR RISKTrinity Health System West CampusComment on above:Performed By: #### HH #### [facility] [address] [place] [address] Dr. Richa CheemaLDL CALC NORMALSEE BELOWTrinity Health System West CampusComment on above:Result Comment: <100 mg/dl OPTIMAL 100 - 129 mg/dl NEAR OR ABOVE OPTIMAL 130 - 159 mg/dl BORDERLINE HIGH 160 - 189 mg/dl HIGH >190 mg/dl VERY HIGH Performed By: #### HH #### [facility] [address] [place] [address] Dr. Richa CheemaTriglyceride [Mass/Vol]172 mg/dLCritically high<=150The [facility] CenterComvibra hospital of [facility] [place] on above:Performed By: #### HH #### [facility] [address] [place] [address] Dr. Richa CheemaVLDL CALC34.4 mg/dLNoMagruder HospitalComvibra hospital of [facility] [place] on above: Performed By: #### HH #### [facility] [address] [place] [address] Dr. Richa CheemaPROF CHEM 8 (BAS METB)on 92-84-7446Kdbkz gap [Moles/Vol]13.2 mmol/LNormalMount Carmel Health SystemComvibra hospital of [facility] [place] on above:Performed By: #### HH #### [facility] [address] [place] [address] Dr. Richa CheemaCalcium [Mass/Vol]8.8 mg/dLNormal8.5-10.1The [facility] Comment on above:Performed By: #### HH #### [facility] [address] [place] [address] Dr. Richa CheemaChloride [Moles/Vol]108 mmol/LCritically fgls08-509Bah [facility] CenterComment on above:Performed By: #### HH #### [facility] [address] [place] [address] Dr. Richa CheemaCO2 [Moles/Vol]25.7 mmol/TFbigyo31.0-32.0The [facility] Comment on above:Performed By: #### HH #### [facility] [address] [place] [address] Dr. Richa CheemaCreatinine [Mass/Vol]2.30 mg/dLCritically high0.55-1.02The [facility] CenterComment on above:Performed By: #### HH #### [facility] [address] [place] [address] Dr. Chaudhry ChangEGFR-AF ESGNUBIW77 mL/min/1.98i3Lqvhfuelyv low>=60The [facility] CenterComment on above:Performed By: #### HH #### [facility] [address] [place] [address] Dr. Richa MadrigalGFR-NON AF JTSVDAVD67 mL/min/1.69f4Yjejlhiuyo low>=60The [facility] CenterComment on above:Performed By: #### HH #### [facility] [address] [place] [address] Dr. Richa CheemaGlucose [Mass/Vol]139 mg/dLCritically jnoi47-976Qci [facility] CenterComment on above:Performed By: #### HH #### [facility] [address] [place] [address] Dr. Richa CheemaPotassium [Moles/Vol]4.9 mmol/LNormal3.5-5.1The [facility] Comment on above:Performed By: #### HH #### [facility] [address] [place] [address] Dr. Richa CheemaSodium [Moles/Vol]142 mmol/ILsnwxh493-256Zbx [facility] Comment on above:Performed By: #### HH #### [facility] [address] [place] [address] Dr. Richa Torres nitrogen [Mass/Vol]25.0 mg/dLCritically high7.0-18.0The [facility] CenterComment on above:Performed By: #### HH #### [facility] [address] [place] [address] Dr. Richa Torres nitrogen/Creatinine [Mass ratio]10.9 mg/mgNormalThe [facility] CenterComment on above:Performed By: #### HH #### [facility] [address] [place] [address] Dr. Richa Cool 66-80-0986JFE [Catalytic activity/Vol]18 U/IXpelcz07-63Fxm [facility] CenterComment on above:Performed By: #### HH #### [facility] [address] [place] [address] Dr. Richa Espinoza 86-59-4670KKL [Catalytic activity/Vol]18 U/WDotenq44-72Tuc [facility] CenterComment on above:Performed By: #### HH #### [facility] [address] [place] [address] Dr. Richa CheemaXR BONE SURVEYon 07-06-6013MW BONE SURVEYEXAMINATION: XR BONE SURVEY HISTORY: Multiple [...] Electronically authenticated by: DIANN IBANEZ Date: 2023-01-07 07:54[facility] West CampusXR KUB 1 VIEWon 59-11-6483XP KUB 1 VIEWEXAMINATION: XR KUB 1 VIEW [...] Electronically authenticated by: DIANN IBANEZ Date: 2023-01-06 18:33[facility] CampusAlbumin [Mass/volume] in Serum or PlasmaOrdered By: Claire Choi on 01-27-1903Liakqki [Mass/Vol]3.6 g/dL3.2-5.5FZanesville City HospitalAlkaline phosphatase [Enzymatic activity/volume] in Serum or PlasmaOrdered By: Claire Choi on 09-38-0042ANT [Catalytic activity/Vol]99 U/V89-61VvqxdoqdbOhio State East HospitalAspartate aminotransferase [Enzymatic activity/volume] in Serum or PlasmaOrdered By: Claire Choi on 01-04-2023 AST [Catalytic activity/Vol]14 U/B71-68KhhhnuonhOhio State East Hospital Basophils Auto (Bld) [#/Vol]Ordered By: Claire Choi on 24-35-9926Vmopcytey (Bld) [#/Vol]0.1 10*3/uL0.0-0.2FZanesville City HospitalBasophils/100 WBC Auto (Bld)Ordered By: Claire Choi on 69-18-2808Xynelpfne/100 WBC (Bld) 0.8 %.[facility] East HospitalBilirubin.total [Mass/volume] in Serum or PlasmaOrdered By: Claire Choi on 64-81-7366Ecyqiozdd [Mass/Vol]0.6 mg/dL 0.3-1.2FZanesville City HospitalCalcium [Mass/volume] in Serum or Plasma Ordered By: Claire Choi on 76-19-6307Bihecib [Mass/Vol]8.7 mg/dL8.2-10.2 [facility] HospitalCarbon dioxide, total [Moles/volume] in Serum or PlasmaOrdered By: Claire Choi on 13-10-4812VI6 [Moles/Vol]21.9 mmol/L 22.0-30.0[facility] HospitalChloride [Moles/volume] in Serum or PlasmaOrdered By: Claire Choi on 87-78-9714Lykrokqe [Moles/Vol]108 mmol/L 95-114Ohio [facility] HospitalCreatinine and Glomerular filtration rate.predicted panel (S/P/Bld)Ordered By: Claire Choi on 01-04-2023 Creatinine [Mass/Vol]2.48 mg/dL0.44-1.03[facility] Eosinophils Auto (Bld) [#/Vol]Ordered By: Claire Choi on 01-04-2023 Eosinophils (Bld) [#/Vol]0.2 10*3/uL0.0-0.45[facility] Eosinophils/100 WBC Auto (Bld)Ordered By: Claire Choi on 01-04-2023 Eosinophils/100 WBC (Bld)2.3 %.[facility] HospitalErythrocyte distribution width Auto (RBC) [Ratio]Ordered By: Claire Choi on 01-04-2023 Erythrocyte distribution width (RBC) [Ratio]13.2 %11.9-15.3FZanesville City HospitalEstimated glomerular filtration rate (GFR) non- Ordered By: Claire Choi on 35-69-5943VSA/1.73 sq M.predicted among non- blacks MDRD (S/P/Bld) [Vol rate/Area]19 mL/MinOhio State East Hospital GFR/1.73 sq M.predicted among non-blacks MDRD (S/P/Bld) [Vol rate/Area]Estimated glomerular filtration rate (GFR) non- AmericanOhio State East HospitalGlobulin Calc (S) [Mass/Vol]Ordered By: Claire Choi on 01-04-2023 Globulin (S) [Mass/Vol]2.5 g/dLOhio State East HospitalGlucose [Mass/volume] in Serum or PlasmaOrdered By: Claire Choi on 01-04-2023 Glucose [Mass/Vol]144 mg/iH52-666PubpwlgduOhio State East HospitalComment on above:ADA recommended reference rangeRandom Glucose Reference Range is dependent on time and content of last meal. Glucose of more than 200 mg/dL in a nonstressed, ambulatory subject supports the diagnosisof Diabetes Mellitus. Hematocrit Auto (Bld) [Volume fraction]Ordered By: Claire Choi on 06-56-0676Rebioeyggc (Bld) [Volume fraction]38.4 %34.0-46.4FZanesville City HospitalHemoglobin [Mass/volume] in BloodOrdered By: Claire Choi on 36-50-3941Zybrmxjfad (Bld) [Mass/Vol]12.7 g/dL11.8-15.4FZanesville City HospitalImmunoglobulin light chains.kappa.free [Mass/volume] in Serum Ordered By: Claire Choi on 88-52-9380Wipfpdlqwaxykd light chains.kappa.free (S) [Mass/Vol]26.9 mg/L3.3-19.4FZanesville City HospitalImmunoglobulin light chains.kappa.free/Immunoglobulin light chains.lambda.free [MassOrdered By: Claire Choi on 01-04-2023 Immunoglobulin light chains.kappa.free/Immunoglobulin light chains.lambda.free (S) [Mass ratio]2.240.26-1.65Ohio State East HospitalComment on above: Performed at: - [facility] [id number] Director: Elpidio Delgado PhD, Phone: [phone] light chains.lambda.free [Mass/volume] in Serum or PlasmaOrdered By: Claire Choi on 51-56-9283Tnolabovlxjmqm light chains.lambda.free [Mass/Vol]12.0 mg/L 5.7-26.3FZanesville City HospitalLeukocytes [#/volume] corrected for nucleated erythrocytes in Blood by Automated counOrdered By: Claire Choi on 17-81-9107IYL corrected for nucl RBC Auto (Bld) [#/Vol]8.9 10*3/uL3.8-11.6 [facility] HospitalLymphocytes Auto (Bld) [#/Vol]Ordered By: Claire Choi on 48-20-1009Gfwjjpsscmz (Bld) [#/Vol]3.0 10*3/uL1.00-4.8 [facility] HospitalLymphocytes/100 WBC Auto (Bld)Ordered By: Claire Choi on 70-55-3979Baaiezooptq/100 WBC (Bld)34.1 %.[facility] Auto (RBC) [Entitic mass]Ordered By: Claire Choi on 50-22-7028FIG (RBC) [Entitic mass]31.4 pg24.7-34.3FUC West Chester HospitalHC Auto (RBC) [Mass/Vol]Ordered By: Claire Choi on 49-00-7435HVET (RBC) [Mass/Vol]33.0 g/dL32.0-35.0[facility] HospitalMCV Auto (RBC) [Entitic vol]Ordered By: Claire Choi on 50-67-9187FXL (RBC) [Entitic vol]95.1 cA39-544AbzcdjmtcOhio State East HospitalMonocytes Auto (Bld) [#/Vol]Ordered By: Claire Choi on 88-12-3869Tpxkdutnq (Bld) [#/Vol] 0.7 10*3/uL0.0-0.8[facility] HospitalMonocytes/100 WBC Auto (Bld) Ordered By: Claire Choi on 09-71-8877Axfxsymhc/100 WBC (Bld)8.0 %. [facility] HospitalNeutrophils Auto (Bld) [#/Vol]Ordered By: Claire Choi on 71-48-3115Bdkzrmjqaeh (Bld) [#/Vol]4.9 10*3/uL1.8-7.7 [facility] HospitalNeutrophils/100 WBC Auto (Bld)Ordered By: Claire Choi on 51-24-7321Ajkjqnxplmr/100 WBC (Bld)54.8 %.[facility] HospitalNo Panel InformationOrdered By: Claire Choi on 40-65-6202Rrhidfctn GFR ()23 mL/MinOhio State East HospitalComment on above:GFR estimated reference range: According to KDOQI guidelines, <60 ml/min/1.73m2 is sufficient todiagnose a patient with chronic kidney disease.Pharmacy Creatinine Clearance (Chem19.82[facility] Hospital23 mL/MinOhio State East HospitalNucleated erythrocytes [Presence] in Blood by Automated countOrdered By: Claire Choi on 96-12-3629Qevdnlhtd RBC Auto Ql (Bld)0.0 /100{WBC}0-0.5FZanesville City HospitalPlatelet mean volume Auto (Bld) [Entitic vol]Ordered By: Claire Choi on 41-50-9150Bevqjdjz mean volume (Bld) [Entitic vol]9.6 fL6.3-10.7 [facility] HospitalPlatelets Auto (Bld) [#/Vol]Ordered By: Claire Choi on 59-92-5462Lwvmouqxs (Bld) [#/Vol]210 10*3/aB484-639YdwppydneOhio State East HospitalPotassium [Moles/volume] in Serum or PlasmaOrdered By: Claire Choi on 11-19-5020Momfghuss [Moles/Vol]4.3 mmol/L3.5-5.1FZanesville City HospitalProtein [Mass/volume] in Serum or PlasmaOrdered By: Claire Choi on 54-71-3129Uxvzjdk [Mass/Vol]6.1 g/dL6.1-7.9[facility] HospitalRBC Auto (Bld) [#/Vol]Ordered By: Claire Choi on 97-24-5868VDI (Bld) [#/Vol]4.04 10*6/uL3.60-5.00[facility] Hospitalerum or plasma alanine aminotransferase measurement without P-5'-P (enzymatic activiOrdered By: Claire Choi on 91-93-9876IXH No additional P-5'-P [Catalytic activity/Vol]14 U/R30-77DjogavaypTrumbull Memorial Hospitalerum or plasma albumin/globulin mass ratioOrdered By: Claire Choi on 01-04-2023 Albumin/Globulin [Mass ratio]1.4 {ratio}[facility] Hospitalerum or plasma anion gap determinationOrdered By: Claire Choi on 01-04-2023 Anion gap [Moles/Vol]11.4 mmol/L6.0-15.0[facility] Hospitalodium [Moles/volume] in Serum or PlasmaOrdered By: Claire Choi on 01-04-2023 Sodium [Moles/Vol]137 mmol/G549-068DflprhyfeOhio State East HospitalUrea nitrogen [Mass/volume] in Serum or PlasmaOrdered By: Claire Choi on 90-03-8076Anuq nitrogen [Mass/Vol]33 mg/dL9-23[facility] WBC Auto (Bld) [#/Vol]Ordered By: Claire Choi on 90-21-9169JPH (Bld) [#/Vol]8.9 10*3/uL3.8-11.6FZanesville City HospitalPTH INTACTon 82-48-3109ZZS, Lenegj35 pg/mLCritically vwcf24-82Rnb [facility] CenterComment on above:Performed By: #### MG, RENAL, URIC #### [facility] [address] [place] [address] Dr. Richa CheemaHEMOGRAM AND PLATELon 41-60-9070Rjbnpkpddx (Bld) [Volume fraction]40.4 %Ewrodt03.0-48.0The [facility] CenterComment on above:Performed By: #### HH #### [facility] [address] [place] [address] Dr. Richa CheemaHemoglobin (Bld) [Mass/Vol]13.5 g/eTZlxhua16.0-16.0The [facility] CenterComment on above:Performed By: #### HH #### [facility] [address] [place] [address] Dr. Richa LastH (RBC) [Entitic mass]31.7 jiRetamw16.7-34.0The [facility] on above:Performed By: #### HH #### [facility] [address] [place] [address] Dr. Richa CheemaHC (RBC) [Mass/Vol]33.4 g/zSRkwebh81.9-35.2The [facility] Crille Hospitalment on above:Performed By: #### HH #### [facility] [address] [place] [address] Dr. Richa LastV (RBC) [Entitic vol]94.8 gZGjcrul77.0-99.0The [facility] Hospitalment on above:Performed By: #### HH #### [facility] [address] [place] [address] Dr. Richa CheemaPLT218 103/hgWrmnru083-622Snd [facility] CenterComment on above: Performed By: #### HH #### [facility] [address] [place] [address] Dr. Richa CheemaRBC4.26 106/ulNormal4.20-5.40The [facility] CenterComment on above:Performed By: #### HH #### [facility] [address] [place] [address] Dr. Richa CheemaWBC8.7 103/ulNormal4.0-11.0The [facility] CenterComment on above: Performed By: #### HH #### [facility] [address] [place] [address] Dr. Richa CheemaMAGNESIUMon 53-55-2652Yvqondyvs [Mass/Vol]2.0 mg/dLNormal1.8-2.4 The [facility] CenterComment on above:Performed By: #### MG, RENAL, URIC #### [facility] [address] [place] [address] Dr. Richa HernandezAL FUNCTION PANELon 45-18-0776Vdracme [Mass/Vol]3.4 g/dLNormal 3.4-5.0The [facility] CenterComment on above:Performed By: #### MG, RENAL, URIC #### [facility] [address] [place] [address] Dr. Richa CheemaCalcium [Mass/Vol]8.6 mg/dLNormal8.5-10.1The [facility] Comment on above:Performed By: #### MG, RENAL, URIC #### [facility] [address] [place] [address] Dr. Richa CheemaChloride [Moles/Vol]104 mmol/WJvbiir49-878Nhk [facility] Comment on above:Performed By: #### MG, RENAL, URIC #### [facility] [address] [place] [address] Dr. Richa CheemaCO2 [Moles/Vol]29.7 mmol/SDrwxow82.0-32.0The [facility] Comment on above:Performed By: #### MG, RENAL, URIC #### [facility] [address] [place] [address] Dr. Richa CheemaCreatinine [Mass/Vol]2.29 mg/dLCritically high0.55-1.02The [facility] CenterComment on above:Performed By: #### MG, RENAL, URIC #### [facility] [address] [place] [address] Dr. Chaudhry ChangEGFR-AF GTPOOWDF26 mL/min/1.09b6Sbvsssswkr low>=60The [facility] CenterComment on above:Performed By: #### MG, RENAL, URIC #### [facility] [address] [address] [address] Richa MadrigalGFR-NON AF HIPRDEPI63 mL/min/1.48p3Abxbwqcelo low>=60The [facility] CenterComment on above:Performed By: #### MG, RENAL, URIC #### [facility] [address] [address] [address] Richa CheemaGlucose [Mass/Vol]133 mg/dLCritically iyag90-071Lra [facility] CenterComment on above:Performed By: #### MG, RENAL, URIC #### [facility] [address] [address] [address] Richa CheemaPhosphate [Mass/Vol]3.9 mg/dLNormal2.6-4.7The [facility] Comment on above:Performed By: #### MG, RENAL, URIC #### [facility] [address] [address] [address] Richa CheemaPotassium [Moles/Vol]4.4 mmol/LNormal3.5-5.1The [facility] Comment on above:Performed By: #### MG, RENAL, URIC #### [facility] [address] [address] [address] Richa CheemaSodium [Moles/Vol]141 mmol/KPxrowb554-896Rtn [facility] Comment on above:Performed By: #### MG, RENAL, URIC #### [facility] [address] [address] [address] Richa CheemaUrea nitrogen [Mass/Vol]30.0 mg/dLCritically high7.0-18.0The [facility] Hospitalment on above:Performed By: #### MG, RENAL, URIC #### [facility] [address] [address] [address] Richa CheemaUA RANDOM W/MICROSCOPICon 71-26-4100YEMTCFUPCNOH SEENNormalNONE SEENThe [facility] CenterComment on above:Performed By: #### UAMIC #### [facility] [address] [address] [address] Richa CheemaBilirubin Ql (U)NegativeNormalNEGATIVESelect Medical [facility] on above:Performed By: #### UAMIC #### [facility] [address] [address] [address] Richa CheemaCASTNONE SEENNormalNONE SEENMount Carmel Health SystemComment on above:Performed By: #### UAMIC #### [facility] [address] [address] [address] Richa CheemaClarity (U)CLEARNormalCLEARMount Carmel Health SystemComment on above: Performed By: #### UAMIC #### [facility] [address] [place] [address] Dr. Ricah Johnstonlor (U)LT. YELLOWNormalYELLOWMount Carmel Health SystemComment on above:Performed By: #### UAMIC #### [facility] [address] [place] [address] Dr. Richa CheemaCrystals LM Nom (Urine sed)NONE SEENNormalNONE SEENMount Carmel Health SystemComment on above:Performed By: #### UAMIC #### [facility] [address] [place] [address] Dr. Chaudhry ChangEpithelial cells LM Ql (Urine sed)RARENormalNONE SEEN /RAREMount Carmel Health SystemComment on above:Performed By: #### UAMIC #### [facility] [address] [place] [address] Dr. Richa CheemaGlucose Ql (U)NegativeNormalNEGATIVEMount Carmel Health SystemComment on above:Performed By: #### UAMIC #### [facility] [address] [place] [address] Dr. Richa CheemaHemoglobin Ql (U)TRACE-INTACTAbnormalNEGATIVEMount Carmel Health SystemComment on above:Performed By: #### UAMIC #### [facility] [address] [place] [address] DrBritt Flores Ql (U)NegativeNormalNEGATIVEThe [facility] CenterComment on above:Performed By: #### UAMIC #### [facility] [address] [place] [address] Dr. Richa CheemaLEUKOCYTESNegativeNormalNEGATIVEThe [facility] CenterComment on above:Performed By: #### UAMIC #### [facility] [address] [place] [address] Dr. Richa CheemaMUCOUSNONE SEENNormalNONE SEENThe Stantonville HospitalComment on above:Performed By: #### UAMIC #### [facility] [address] [place] [address] Dr. Richa Ngtrite Ql (U)NegativeNormalNEGATIVEThe [facility] Medical CenterComment on above:Performed By: #### UAMIC #### [facility] [address] [place] [address] Dr. Richa CheemapH (U)8.0 [pH]Normal5-9The [facility] CenterComment on above: Performed By: #### UAMIC #### [facility] [address] [place] [address] Dr. Richa CheemaFtqcdVIU3-6Wwjapa8-2Ysk [facility] CenterComment on above:Performed By: #### UAMIC #### [facility] [address] [place] [address] Dr. Richa CheemaSPEC GRAVITY1.997Ylwwhg8.005-<=1.025The [facility] CenterComment on above:Performed By: #### UAMIC #### [facility] [address] [place] [address] Dr. Richa James MEFGVJW139 mg/dlAbnormalNEGATIVE/ TRACEThe [facility] on above:Performed By: #### UAMIC #### [facility] [address] [place] [address] Dr. Richa Floresbilinogen Qn (U)0.2 {Marley'U}/dLNormal0.2 - 1.0The [facility] CenterComment on above:Performed By: #### UAMIC #### [facility] [address] [place] [address] Dr. Richa Shafer SEENNormalNONE SEENMount Carmel Health SystemComment on above: Performed By: #### UAMIC #### [facility] [address] [place] [address] Dr. Richa Copeland ACID SERUMon 99-85-7776Azwbu [Mass/Vol]5.3 mg/dLNormal 2.6-6.0The [facility] CenterComment on above:Performed By: #### MG, RENAL, URIC #### [facility] [address] [place] [address] Dr. Richa Domingo T PROTEIN CREAT RATIOon 74-54-3535Xwhxisv (U) [Mass/Vol] 113.5 mg/dLCritically high<=12.0[facility] SystemComvib[facility] [place] on above:Performed By: #### MG, RENAL, URIC #### [facility] [address] [place] [address] Dr. Richa Pascal PROT CREAT RAT1.55NoMagruder HospitalComment on above: Performed By: #### MG, RENAL, URIC #### [facility] [address] [place] [address] Dr. Richa Domingo CREAT73.37 mg/yKOevjdi34.00-300.00[facility] Comment on above:Performed By: #### MG, RENAL, URIC #### [facility] [address] [place] [address] Dr. Richa CheemaVITAMIN D 25 OHon 86-65-7740TSJ D 25-OH42.8 ng/mLNormalThe [facility] CenterComment on above:Performed By: #### HH #### [facility] [address] [place] [address] Dr. Richa Ferguson RANGESSEE BELOWTrinity Health System West CampusComment on above: Result Comment: <20 ng/mL Vit D deficient 20 - <30 ng/mL Vit D insufficient 30 - 100 ng/mL Vit D sufficient >100 ng/mL Potential ToxicityPerformed By: #### HH #### [facility] [address] [address] [address] Richa CheemaAlbumin [Mass/volume] in Serum or PlasmaOrdered By: Claire Choi on 86-80-6321Zncomgy [Mass/Vol]3.6 g/dL2.9-4.4FZanesville City HospitalLaboratory - Hematology and Cell countsOrdered By: Claire Choi on 10-27-5011Etyipdnlp RBC/100 WBC (Bld) [Ratio]0.1 %0-0.5FZanesville City HospitalNo Panel InformationOrdered By: Claire Choi on 00-19-6570Vkwndhn Electrophoresis M-SpikeNot observed g/dLNot ObservedOhio State East HospitalProtein Electrophoresis NoteSee comment.[facility] HospitalComment on above:Protein electrophoresis scan will follow via computer,mail, or director of architecture delivery.Performed at: [facility] [employer] [facility] [id number] Director: Elpidio Delgado PhD, Phone: [phone] %0-0.5FZanesville City HospitalProtein [Mass/volume] in Serum or PlasmaOrdered By: Claire Choi on 57-47-6498Btlbmjr [Mass/Vol]6.1 g/dL6.0-8.5FCleveland Clinic Fairview Hospitalerum globulin measurement (mass/volume)Ordered By: Claire Choi on 04-48-2634Gsrjvgro (S) [Mass/Vol] 2.5 g/dL2.2-3.9[facility]ull Memorial Hospitalerum or plasma albumin/globulin mass ratioOrdered By: Claire Choi on 16-68-2073Qcunjbp/Globulin [Mass ratio]1.4 {ratio}0.7-1.7FCleveland Clinic Fairview Hospitalerum or plasma alpha 1 globulin measurement by electrophoresis (mass/volume)Ordered By: Claire Choi on 62-13-2993Rjwzs 1 globulin Elph [Mass/Vol]0.2 g/dL0.0-0.4FCleveland Clinic Fairview Hospitalerum or plasma alpha 2 globulin measurement by electrophoresis (mass/volume)Ordered By: Claire Choi on 01-06-5147Xmfhs 2 globulin Elph [Mass/Vol]0.9 g/dL0.4-1.0Tr[facility]ull Memorial Hospitalerum or plasma beta globulin measurement by electrophoresis (mass/volume)Ordered By: Claire Choi on 18-45-4502Bauy globulin Elph [Mass/Vol]0.8 g/dL0.7-1.3 [facility] Hospitalerum or plasma gamma globulin measurement by electrophoresis (mass/volume)Ordered By: Claire Choi on 20-94-0089Drdbq globulin Elph [Mass/Vol]0.6 g/dL0.4-1.8[facility] HospitalAlbumin [Mass/volume] in Serum or PlasmaOrdered By: Claire Choi on 07-13-2022 Albumin [Mass/Vol]3.4 g/dL2.9-4.4FZanesville City HospitalImmunoglobulin light chains.kappa.free [Mass/volume] in SerumOrdered By: Claire Choi on 60-32-1081Jwumaawztgaeyy light chains.kappa.free (S) [Mass/Vol]21.9 mg/L3.3-19.4 [facility] HospitalImmunoglobulin light chains.kappa.free/Immunoglobulin light chains.lambda.free [MassOrdered By: Claire Choi on 85-16-8963Zmujkldylwbxfv light chains.kappa.free/Immunoglobulin light chains.lambda.free (S) [Mass ratio]1.87 0.26-1.65Ohio State East HospitalComment on above:Performed at: - Lab[address] [id number] Enamel Sprayer: Elpidio Delgado PhD, Phone: [phone] light chains.lambda.free [Mass/volume] in Serum or PlasmaOrdered By: Claire Choi on 68-65-0480Jdnmxnykidzsao light chains.lambda.free [Mass/Vol]11.7 mg/L 5.7-26.3FZanesville City HospitalLaboratory - Chemistry and Chemistry - challengeOrdered By: Claire Choi on 78-75-0856Uihybvq [Mass/Vol]0.2 g/dL Not ObservedOhio State East HospitalNo Panel InformationOrdered By: Claire Choi on 97-00-6197Ipabuzp Electrophoresis NoteSee comment.[facility] East HospitalComment on above:Protein electrophoresis scan will follow via computer, mail, or director of architecture delivery. Performed at: [facility] Lab[address] [id number] En[place] Sprayer: Elpidio Delgado PhD, Phone: [phone] [Mass/volume] in Serum or PlasmaOrdered By: Claire Choi on 53-68-0483Kzmedje [Mass/Vol]6.2 g/dL6.0-8.5FCleveland Clinic Fairview Hospitalerum globulin measurement (mass/volume)Ordered By: Claire Choi on 11-11-4871Decuazsw (S) [Mass/Vol] 2.8 g/dL2.2-3.9[facility] Hospitalerum or plasma albumin/globulin mass ratioOrdered By: Claire Choi on 04-09-6397Mneasrj/Globulin [Mass ratio]1.2 {ratio}0.7-1.7FCleveland Clinic Fairview Hospitalerum or plasma alpha 1 globulin measurement by electrophoresis (mass/volume)Ordered By: Claire Choi on 37-37-2829Xoxbt 1 globulin Elph [Mass/Vol]0.2 g/dL0.0-0.4FCleveland Clinic Fairview Hospitalerum or plasma alpha 2 globulin measurement by electrophoresis (mass/volume)Ordered By: Claire Choi on 35-17-1567Cglni 2 globulin Elph [Mass/Vol]0.9 g/dL0.4-1.0[facility] Hospitalerum or plasma beta globulin measurement by electrophoresis (mass/volume)Ordered By: Claire Choi on 21-61-4308Zcyj globulin Elph [Mass/Vol]1.0 g/dL0.7-1.3 [facility] Hospitalerum or plasma gamma globulin measurement by electrophoresis (mass/volume)Ordered By: Claire Choi on 97-85-5530Gzgoo globulin Elph [Mass/Vol]0.8 g/dL0.4-1.8[facility] HospitalCBC AUTO DIFFon 48-20-1029OCVY #0.0 103/ulNormal0.0-0.1The [facility] CenterComment on above:Performed By: #### MG, RENAL, URIC #### [facility] [address] [place] [address] Dr. Richa CheemaBasophils/100 WBC (Bld)0.2 %Normal0.2-2.0The [facility] Comment on above:Performed By: #### MG, RENAL, URIC #### [facility] [address] [place] [address] Dr. Richa Mark #0.1 103/ulNormal0.0-0.7The [facility] CenterComment on above: Performed By: #### MG, RENAL, URIC #### [facility] [address] [place] [address] Dr. Richa Madrigalosinophils/100 WBC (Bld)1.5 %Normal0.9-7.0The [facility] Comment on above:Performed By: #### MG, RENAL, URIC #### [facility] [address] [place] [address] Dr. Richa Madrigalrythrocyte distribution width (RBC) [Ratio]13.8 %Ckyuaw94.0-15.0 The [facility] CenterComment on above:Performed By: #### MG, RENAL, URIC #### [facility] [address] [place] [address] Dr. Richa CheemaHematocrit (Bld) [Volume fraction]38.4 %Xmgzcq61.0-48.0The [facility] CenterComment on above:Performed By: #### MG, RENAL, URIC #### [facility] [address] [place] [address] Dr. Richa CheemaHemoglobin (Bld) [Mass/Vol]13.0 g/eVHbmxux11.0-16.0The [facility] CenterComment on above:Performed By: #### MG, RENAL, URIC #### [facility] [address] [place] [address] Dr. Richa Ring #0.01 10e3/ulNormal0.00-0.03The [facility] CenterComment on above:Performed By: #### MG, RENAL, URIC #### [facility] [address] [place] [address] Dr. Richa Ring %0.1 %Normal0.0-0.5The [facility] CenterComment on above: Performed By: #### MG, RENAL, URIC #### [facility] [address] [place] [address] Dr. Richa Lloyd #3.5 103/ulNormal1.2-3.8The [facility] CenterComment on above:Performed By: #### MG, RENAL, URIC #### [facility] [address] [place] [address] Dr. Richa Johnstonhocytes/100 WBC (Bld)42.4 %Kwuuti71.5-60.0The [facility] CenterComment on above:Performed By: #### MG, RENAL, URIC #### [facility] [address] [place] [address] Dr. Richa CopelandUAL DIFF REQNONormalThe [facility] CenterComment on above: Performed By: #### MG, RENAL, URIC #### [facility] [address] [place] [address] Dr. Richa Last (RBC) [Entitic mass]31.8 eeCothch09.7-34.0The [facility] CenterComment on above:Performed By: #### MG, RENAL, URIC #### [facility] [address] [place] [address] Dr. Richa Last (RBC) [Mass/Vol]33.9 g/iMTjhuys25.9-35.2The [facility] CenterComment on above:Performed By: #### MG, RENAL, URIC #### [facility] [address] [place] [address] Dr. Richa Last (RBC) [Entitic vol]93.9 sKTszqhc24.0-99.0The [facility] CenterComment on above:Performed By: #### MG, RENAL, URIC #### [facility] [address] [place] [address] Dr. Richa Rios #0.5 103/ulNormal0.3-0.8The [facility] CenterComment on above:Performed By: #### MG, RENAL, URIC #### [facility] [address] [place] [address] Dr. Richa Ruelasocytes/100 WBC (Bld)6.6 %Normal1.7-12.0The [facility] Comment on above:Performed By: #### MG, RENAL, URIC #### [facility] [address] [place] [address] Dr. Richa Glez #4.0 103/ulNormal1.4-6.5The [facility] CenterComment on above:Performed By: #### MG, RENAL, URIC #### [facility] [address] [place] [address] Dr. Richa Pattonutrophils/100 WBC (Bld)49.2 %Zqilcz76.0-75.0The [facility] CenterComment on above:Performed By: #### MG, RENAL, URIC #### [facility] [address] [place] [address] Dr. Richa Alegria mean volume (Bld) [Entitic vol]10.9 fLNormal9.5-13.5The [facility] CenterComment on above:Performed By: #### MG, RENAL, URIC #### [facility] [address] [place] [address] Dr. Richa CheemaPLT193 103/jbCcdggf262-616Xfs [facility] CenterComment on above: Performed By: #### MG, RENAL, URIC #### [facility] [address] [place] [address] Dr. Richa CheemaRBC4.09 106/ulCritically low4.20-5.40The [facility] CenterComment on above:Performed By: #### MG, RENAL, URIC #### [facility] [address] [place] [address] Dr. Richa CheemaWBC8.2 103/ulNormal4.0-11.0The [facility] CenterComment on above: Performed By: #### MG, RENAL, URIC #### [facility] [address] [place] [address] Dr. Richa Owens 14(COMP METB)on 39-60-6401Yopovhi [Mass/Vol]3.7 g/dLNormal 3.4-5.0The [facility] CenterComment on above:Performed By: #### CMP #### [facility] [address] [place] [address] Dr. Richa CheemaAlbumin/Globulin [Mass ratio]1.2 {ratio}NormalThe [facility] CenterComment on above:Performed By: #### CMP #### [facility] [address] [place] [address] Dr. Richa JimenezP [Catalytic activity/Vol]105 U/UYvrzbb47-016Vyc [facility] CenterComment on above:Performed By: #### CMP #### [facility] [address] [place] [address] Dr. Richa Vang [Catalytic activity/Vol]18 U/MBxqxur20-73Uax [facility] CenterComment on above:Performed By: #### CMP #### [facility] [address] [place] [address] Dr. Richa Mejia gap [Moles/Vol]11.4 mmol/LNormalThe [facility] Comment on above:Performed By: #### CMP #### [facility] [address] [place] [address] Dr. Richa CheemaAST [Catalytic activity/Vol]12 U/LCritically lsy01-39Vcl [facility] CenterComment on above:Performed By: #### CMP #### [facility] [address] [place] [address] Dr. Richa CheemaBilirubin [Mass/Vol]0.3 mg/dLNormal0.2-1.0The [facility] Comment on above:Performed By: #### CMP #### [facility] [address] [place] [address] Dr. Richa CheemaCalcium [Mass/Vol]8.8 mg/dLNormal8.5-10.1[facility] Comment on above:Performed By: #### CMP #### [facility] [address] [place] [address] Dr. Richa CheemaChloride [Moles/Vol]104 mmol/YLgkrvj46-441Xcr [facility] Comment on above:Performed By: #### CMP #### [facility] [address] [address] [address] Richa CheemaCO2 [Moles/Vol]26.9 mmol/CJlkwfg11.0-32.0The [facility] Comment on above:Performed By: #### CMP #### [facility] [address] [address] [address] Richa CheemaCreatinine [Mass/Vol]2.38 mg/dLCritically high0.55-1.02The [facility] CenterComment on above:Performed By: #### CMP #### [facility] [address] [place] [address] Dr. Chaudhry ChangEGFR-AF UQGWQZJW15 mL/min/1.79x8Plktigfgwy low>=60The [facility] CenterComment on above:Performed By: #### CMP #### [facility] [address] [place] [address] Dr. Richa MadrigalGFR-NON AF WOVWWVNR31 mL/min/1.83e6Awkhvabzow low>=60The [facility] CenterComment on above:Performed By: #### CMP #### [facility] [address] [place] [address] Dr. Richa CheemaGlobulin (S) [Mass/Vol]3.1 g/dLNormalThe [facility] CenterComment on above:Performed By: #### CMP #### [facility] [address] [address] [address] Richa CheemaGlucose [Mass/Vol]146 mg/dLCritically kdts21-318Fsz [facility] CenterComment on above:Performed By: #### CMP #### [facility] [address] [place] [address] Dr. Richa CheemaPotassium [Moles/Vol]4.3 mmol/LNormal3.5-5.1The [facility] Comment on above:Performed By: #### CMP #### [facility] [address] [place] [address] Dr. Richa CheemaProtein [Mass/Vol]6.8 g/dLNormal6.4-8.2The [facility] Comment on above:Performed By: #### CMP #### [facility] [address] [address] [address] Richa CheemaSodium [Moles/Vol]138 mmol/DTcbpip929-178Gck [facility] Comment on above:Performed By: #### CMP #### [facility] [address] [address] [address] Richa CheemaUrea nitrogen [Mass/Vol]31.0 mg/dLCritically high7.0-18.0The [facility] CenterComment on above:Performed By: #### CMP #### [facility] [address] [address] [address] Richa Torres nitrogen/Creatinine [Mass ratio]13.0 mg/mgNormalThe [facility] CenterComment on above:Performed By: #### CMP #### [facility] [address] [address] [address] Richa CheemaPTH INTACTon 95-50-6543VKT, Bkhsem72 pg/mLCritically dxov03-33Luw [facility] CenterComment on above:Performed By: #### HH #### [facility] [address] [place] [address] Dr. Richa Saavedra D 25-OH LABCORPon 34-18-3237Joacudy D, 25-Yebyoxu20.8 ng/mL Fraqew46.0-100.0The [facility] CenterComment on above:Result Comment: Vitamin D deficiency has been defined by the [employer] and an Endocrine Society practice guideline as a level of serum 25-OH vitamin D less than 20 ng/mL (1,2). The Endocrine Society went on to further define vitamin D insufficiency as a level between 21 and 29 ng/mL (2). 1. IOM ([employer]). 2010. Dietary reference intakes for calcium and D. [place]: The National Academies Press. 2. Reji MF, Caro [place], Marguerite MCMAHON, et al. Evaluation, treatment, and prevention of vitamin D deficiency: an Endocrine Society clinical practice guideline. JCEM. 2011 May; 96(7):1911-30.Performed By: #### MG, RENAL, URIC #### [facility] [address] [place] [address] Dr. Richa CheemaHEMOGRAM AND PLATELon 29-17-4449Wocvcjnazv (Bld) [Volume fraction]39.4 %Mbeowo05.0-48.0The [facility] CenterComment on above:Performed By: #### HH #### [facility] [address] [place] [address] Dr. Richa CheemaHemoglobin (Bld) [Mass/Vol]13.1 g/pHXmbvdh69.0-16.0The [facility] CenterComment on above:Performed By: #### HH #### [facility] [address] [place] [address] Dr. Richa LastH (RBC) [Entitic mass]31.6 ugQirlsc27.7-34.0The [facility] CenterComment on above:Performed By: #### HH #### [facility] [address] [place] [address] Dr. Richa CheemaMCHC (RBC) [Mass/Vol]33.2 g/hNKdltxs83.9-35.2The [facility] CenterComment on above:Performed By: #### HH #### [facility] [address] [place] [address] Dr. Richa LastV (RBC) [Entitic vol]94.9 vLGacbus38.0-99.0The [facility] CenterComment on above:Performed By: #### HH #### [facility] [address] [place] [address] Dr. Richa CheemaPLT186 103/peSjqiiq995-858Lje [facility] CenterComment on above: Performed By: #### HH #### [facility] [address] [place] [address] Dr. Richa CheemaRBC4.15 106/ulCritically low4.20-5.40The [facility] Hospitalment on above:Performed By: #### HH #### [facility] [address] [place] [address] Dr. Richa CheemaWBC9.5 103/ulNormal4.0-11.0The [facility] CenterComment on above: Performed By: #### HH #### [facility] [address] [place] [address] Dr. Richa CheemaMAGNESIUMon 86-68-3382Suubedhsp [Mass/Vol]1.9 mg/dLNormal1.8-2.4 The [facility] CenterComment on above:Performed By: #### MG, RENAL, URIC #### [facility] [address] [place] [address] Dr. Richa HernandezAL FUNCTION PANELon 58-13-1061Fdifaqw [Mass/Vol]3.6 g/dLNormal 3.4-5.0The [facility] CenterComment on above:Performed By: #### MG, RENAL, URIC #### [facility] [address] [place] [address] Dr. Richa CheemaCalcium [Mass/Vol]8.6 mg/dLNormal8.5-10.1The [facility] Comment on above:Performed By: #### MG, RENAL, URIC #### [facility] [address] [place] [address] Dr. Richa CheemaChloride [Moles/Vol]105 mmol/TIpduyb99-718Qfx [facility] Comment on above:Performed By: #### MG, RENAL, URIC #### [facility] [address] [place] [address] Dr. Richa CheemaCO2 [Moles/Vol]25.5 mmol/FYsjrtw59.0-32.0The [facility] Comment on above:Performed By: #### MG, RENAL, URIC #### [facility] [address] [place] [address] Dr. Richa CheemaCreatinine [Mass/Vol]2.19 mg/dLCritically high0.55-1.02The [facility] CenterComment on above:Performed By: #### MG, RENAL, URIC #### [facility] [address] [place], [place] [id number] Dr. Chaudhry ChangEGFR-AF ZBMOQQQY55 mL/min/1.53e3Mprakqmsdg low>=60The [facility] CenterComment on above:Performed By: #### MG, RENAL, URIC #### [facility] [address] [place] [address] Dr. Richa MadrigalGFR-NON AF JXIQAPBI33 mL/min/1.74e1Bqgtqkjmgr low>=60The [facility] CenterComment on above:Performed By: #### MG, RENAL, URIC #### [facility] [address] [address] [address] Richa CheemaGlucose [Mass/Vol]156 mg/dLCritically rnad20-518Efj [facility] CenterComment on above:Performed By: #### MG, RENAL, URIC #### [facility] [address] [place] [address] Dr. Richa CheemaPhosphate [Mass/Vol]3.8 mg/dLNormal2.6-4.7The [facility] Comment on above:Performed By: #### MG, RENAL, URIC #### [facility] [address] [address] [address] Richa CheemaPotassium [Moles/Vol]4.7 mmol/LNormal3.5-5.1[facility] Comment on above:Performed By: #### MG, RENAL, URIC #### [facility] [address] [place] [address] Dr. Richa CheemaSodium [Moles/Vol]139 mmol/NChwuvf336-905Eja [facility] Comment on above:Performed By: #### MG, RENAL, URIC #### [facility] [address] [address] [address] Richa CheemaUrea nitrogen [Mass/Vol]25.0 mg/dLCritically high7.0-18.0The [facility] Hospitalment on above:Performed By: #### MG, RENAL, URIC #### [facility] [address] [place] [address] Dr. Richa CheemaUA RANDOM W/MICROSCOPICon 17-88-5391UDDEPVEJAFYE SEENNormalNONE SEENThe Stantonville HospitalComment on above:Performed By: #### HH #### [facility] [address] [address] [address] Richa CheemaBilirubin Ql (U)NegativeNormalNEGTogus VA Medical Center Comment on above:Performed By: #### HH #### [facility] [address] [address] [address] Richa RenNONE SEENNormalNONE SEENMount Carmel Health SystemComment on above:Performed By: #### HH #### [facility] [address] [address] [address] Richa CheemaClarity (U)CLEARNormalCLEARMount Carmel Health SystemComment on above: Performed By: #### HH #### [facility] [address] [address] [address] Richa CheemaColor (U)LT. YELLOWNormalYELLOWMount Carmel Health SystemComment on above:Performed By: #### HH #### [facility] [address] [address] [address] Richa CheemaCrystals LM Nom (Urine sed)NONE SEENNormalNONE SEENMount Carmel Health SystemComment on above:Performed By: #### HH #### [facility] [address] [address] [address] Chaudhry ChangEpithelial cells LM Ql (Urine sed)FEWAbnormalNONE SEEN /RAREThe [facility] CenterComment on above:Performed By: #### HH #### [facility] [address] [address] [address] Richa CheemaGlucose Ql (U)NegativeNormalNEGATIVEMount Carmel Health SystemComment on above:Performed By: #### HH #### [facility] [address] [address] [address] Richa CheemaHemoglobin Ql (U)NegativeNormalNEGTogus VA Medical Center Comment on above:Performed By: #### HH #### [facility] [address] [address] [address] Richa CheemaKetones Ql (U)NegativeNormalNEGATIVEThe [facility] CenterComment on above:Performed By: #### HH #### [facility] [address] [address] [address] Richa CheemaLEUKOCYTESNegativeNormalNEGATIVEThe [facility] CenterComment on above:Performed By: #### HH #### [facility] [address] [place] [address] Dr. Richa CheemaMUCOUSNONE SEENNormalNONE SEENThe [facility] CenterComment on above:Performed By: #### HH #### [facility] [address] [place] [address] Dr. Richa Ngtrite Ql (U)NegativeNormalNEGATIVEThe [facility] CenterComment on above:Performed By: #### HH #### [facility] [address] [place] [address] Dr. Richa CheemapH (U)7.5 [pH]Normal5-9The [facility] CenterComment on above: Performed By: #### HH #### [facility] [address] [place] [address] Dr. Richa CheemaRBCNONE SEENAbnormal0-2The [facility] CenterComment on above: Performed By: #### HH #### [facility] [address] [place] [address] Dr. Richa CheemaSPEC GRAVITY1.118Hcfyui0.005-<=1.025The [facility] Hospitalment on above:Performed By: #### HH #### [facility] [address] [place] [address] Dr. Richa James UGUQQOY68 mg/dlAbnormalNEGATIVE/ TRACEThe [facility] Comment on above:Performed By: #### HH #### [facility] [address] [place] [address] Dr. Richa Floresbilinogen Qn (U)0.2 {Marley'U}/dLNormal0.2 - 1.0The [facility] CenterComment on above:Performed By: #### HH #### [facility] [address] [place] [address] Dr. Richa Shafer SEENNormalNONE SEENThe [facility] CenterComment on above: Performed By: #### HH #### [facility] [address] [place] [address] Dr. Richa Copeland ACID SERUMon 92-88-6840Cbvix [Mass/Vol]5.4 mg/dLNormal 2.6-6.0The [facility] CenterComment on above:Performed By: #### MG, RENAL, URIC #### [facility] [address] [place] [address] Dr. Richa Domingo T PROTEIN CREAT RATIOon 10-59-8202Ieoyynp (U) [Mass/Vol] 72.9 mg/dLCritically high<=12.0The [facility] CenterComment on above:Performed By: #### URTPCR #### [facility] [address] [place] [address] Dr. Richa Pascal PROT CREAT RAT0.90NormalThe [facility] CenterComment on above: Performed By: #### URTPCR #### [facility] [address] [place] [address] Dr. Richa Domingo CREAT80.68 mg/aSAxmolv25.00-300.00The [facility] Comment on above:Performed By: #### URTPCR #### [facility] [address] [place] [address] Dr. Richa Galdamez Visit (Cardiology)on 39-74-3048Kbgrjs-up visit Diagnoses/Problems Assessed Persistent atrial fibrillation with [...] treatment plan.; Status:Complete - Retrospective Authorization; Done: [id number] Aortic valve regurgitation, nonrheumatic, HTN (hypertension) Basic Metabolic Panel; Status:Active - Retrospective Authorization; Requested for:[id number]; Class 1 obesity with body mass index (BMI) of 30.0 to 30.9 in adult Healthy Weight Tips; Status:Complete - Retrospective Authorization; Done: [id number] Some eating tips that can help you lose weight.; Status:Complete - Retrospective Authorization; Done: [id number] HTN (hypertension) Renew: amLODIPine Besylate 2.5 MG Oral Tablet; TAKE 1 TABLET DAILY Renew: Carvedilol 12.5 MG Oral Tablet; Take 1 tablet twice a day Hyperlipemia Renew: Atorvastatin Calcium 40 MG Oral Tablet; TAKE 1 TABLET DAILY ALT - Alanine Aminotransferase, Serum; Status:Active - Retrospective Authorization; Requested for:[id number]; AST; Status:Active - Retrospective Authorization; Requested for:[id number]; Lipid Panel; Status:Active - Retrospective Authorization; Requested for:[id number]; Persistent atrial fibrillation with RVR Renew: Aspirin EC 81 MG Oral Tablet Delayed Release; TAKE 1 TABLET DAILY Renew: Xarelto 15 MG Oral Tablet; Take 1 tablet daily SocHx: Never a smoker Tobacco Use Screening; Status:Complete; Done: [id number] Patient Instructions Please bring all medicines, vitamins, [...] assessment at [facility], which was negative. Couple of years ago. [...] 1 (more content not included)...NormalUH TouchworksTobacco Screening.on 12-41-4798Egqpy depression screening assessmentNo [facility] [address] DO Work Phone: Fall risk assessmenta) No falls within the last year [facility] [address] DO Work Phone: Tobacco use status CPHSb) NoMP-[facility] [place] [facility] DO Work Phone: FREE LIGHT CHAINS PLUS RATIOon 56-61-6248Xqcg Lemitar Lt Chains,S24.1 mg/LCritically high3.3-19.4The [facility] CenterComment on above: Performed By: #### MG, RENAL, URIC #### [facility] [address] [place], [place] [address] Dr. Richa CheemaFree Lambda Lt Chains,S17.1 mg/LNormal5.7-26.3The [facility] CenterComment on above:Performed By: #### MG, RENAL, URIC #### [facility] [address] [place], [place] [address] Dr. Richa Guadalupeppa/Lambda Ratio, S1.66Frdeug3.26-1.65The [facility] Comment on above:Performed By: #### MG, RENAL, URIC #### [facility] [address] [place], [place] [address] Dr. Richa CheemaAlbumin [Mass/volume] in Serum or PlasmaOrdered By: Claire Choi on 48-10-8121Rnvrgdd [Mass/Vol]3.5 g/dL3.2-5.5FZanesville City HospitalBasophils Auto (Bld) [#/Vol]Ordered By: Claire Choi on 51-87-8620Cgqphhypa (Bld) [#/Vol]0.1 10*3/uL0.0-0.2FZanesville City HospitalBasophils/100 WBC Auto (Bld)Ordered By: Claire Choi on 05-31-2022 Basophils/100 WBC (Bld)0.9 %.[place] [facility] HospitalBlood hemoglobin measurement (mass/volume)Ordered By: Claire Choi on 83-06-5317Nqgkydismp (Bld) [Mass/Vol]13.5 g/dL11.8-15.4FZanesville City HospitalBlood leukocytes automated count (number/volume)Ordered By: Claire Choi on 22-18-2255IUM (Bld) [#/Vol]9.6 10*3/uL4.5-11.0[facility] Creatinine and Glomerular filtration rate.predicted panel (S/P/Bld)Ordered By: Claire Choi on 69-23-3168Mfpdtvpbpq [Mass/Vol]2.38 mg/dL0.44-1.03[facility] HospitalEosinophils Auto (Bld) [#/Vol]Ordered By: Claire Choi on 76-20-5308Kdxssixevsx (Bld) [#/Vol]0.1 10*3/uL0.0-0.45[facility] HospitalEosinophils/100 WBC Auto (Bld)Ordered By: Claire Choi on 45-16-2408Nsohpdmdwfp/100 WBC (Bld)1.0 %.[facility] HospitalErythrocyte distribution width Auto (RBC) [Ratio]Ordered By: Claire Choi on 80-44-9318Nxpuyddnhoa distribution width (RBC) [Ratio]13.8 % 11.9-15.3FZanesville City HospitalEstimated glomerular filtration rate (GFR) non- AmericanOrdered By: Claire Choi on 88-33-3917VVG/1.73 sq M.predicted among non-blacks MDRD (S/P/Bld) [Vol rate/Area]20 mL/MinOhio State East HospitalGlobulin Calc (S) [Mass/Vol]Ordered By: Claire Choi on 11-75-7324Ykxjoahk (S) [Mass/Vol]2.7 g/dLOhio State East Hospital Hematocrit Auto (Bld) [Volume fraction]Ordered By: Claire Choi on 05-04-1361Ffjzfrttaq (Bld) [Volume fraction]41.0 %34.0-46.4FZanesville City HospitalLaboratory - Hematology and Cell countsOrdered By: Claire Choi on 25-96-2728Vcdbpsqpl RBC/100 WBC (Bld) [Ratio]0.1 %0-0.5FZanesville City HospitalLymphocytes Auto (Bld) [#/Vol]Ordered By: Claire Choi on 35-72-6975Kneeqrxuvhp (Bld) [#/Vol]3.1 10*3/uL1.00-4.8[facility] HospitalLymphocytes/100 WBC Auto (Bld)Ordered By: Claire Choi on 16-00-8300Rdnhrpyydtm/100 WBC (Bld)32.7 %.[facility] HospitalH Auto (RBC) [Entitic mass]Ordered By: Claire Choi on 13-38-3923AOK (RBC) [Entitic mass]31.0 pg24.7-34.3FZanesville City HospitalMCHC Auto (RBC) [Mass/Vol]Ordered By: Claire Choi on 03-23-5431UQIF (RBC) [Mass/Vol]33.0 g/dL32.0-35.0[facility] HospitalMCV Auto (RBC) [Entitic vol]Ordered By: Claire Choi on 05-43-2843KXS (RBC) [Entitic vol]94.0 lP50-596DdsvejyvuOhio State East HospitalMonocytes Auto (Bld) [#/Vol] Ordered By: Claire Choi on 94-08-4485Okmdegjug (Bld) [#/Vol]0.6 10*3/uL 0.0-0.8[facility] HospitalMonocytes/100 WBC Auto (Bld)Ordered By: Claire Choi on 16-60-3410Zpaomfkry/100 WBC (Bld)6.0 %.[facility] HospitalNeutrophils Auto (Bld) [#/Vol]Ordered By: Claire Choi on 06-52-4123Pvxxkausncb (Bld) [#/Vol]5.7 10*3/uL1.8-7.7FZanesville City HospitalNeutrophils/100 WBC Auto (Bld)Ordered By: Claire Choi on 05-31-2022 Neutrophils/100 WBC (Bld)59.4 %.[facility] HospitalNo Panel InformationOrdered By: Claire Choi on 98-48-0632Iphibzxkp GFR ()24 mL/MinOhio State East HospitalComment on above:GFR estimated reference range: According to KDOQI guidelines, <60 ml/min/1.73m2 is sufficient todiagnose a patient with chronic kidney disease.Pharmacy Creatinine Clearance (Chem20.55[facility] HospitalPROTEIN ELECTROPHERESISon 73-65-6485Nmqcqrs [Mass/Vol]3.8 g/dLNormal2.9-4.4The [facility] CenterComment on above:Performed By: #### PRTELEC #### [facility] [address] [address] [address] Richa CheemaAlbumin/Globulin [Mass ratio]1.5 {ratio}Normal0.7-1.7The [facility] CenterComment on above:Performed By: #### PRTELEC #### [facility] [address] [place] [address] Dr. Richa CheemaDhjcdBbxbw-5-Shedsurk0.2 g/dLNormal0.0-0.4The [facility] CenterComment on above:Performed By: #### PRTELEC #### [facility] [address] [address] [address] Richa CheemaKqpqgPdcmx-4-Xgsxhcru1.9 g/dLNormal0.4-1.0The [facility] CenterComment on above:Performed By: #### PRTELEC #### [facility] [address] [address] [address] Richa CheemaBeta Globulin0.9 g/dLNormal0.7-1.3The [facility] CenterComment on above:Performed By: #### PRTELEC #### [facility] [address] [place] [address] Dr. Richa CheemaGamma Globulin0.6 g/dLNormal0.4-1.8The [facility] CenterComment on above:Performed By: #### PRTELEC #### [facility] [address] [place] [address] Dr. Richa CheemaGlobulin (S) [Mass/Vol]2.5 g/dLNormal2.2-3.9The [facility] Comment on above:Performed By: #### PRTELEC #### [facility] [address] [address] [address] Richa CheemaM-SpikeNot ObservedNormalNot ObservedMount Carmel Health SystemComment on above:Performed By: #### PRTELEC #### [facility] [address] [address] [address] Richa CheemaPDF.NormalThe [facility] CenterComment on above:Performed By: #### PRTELEC #### [facility] [address] [address] [address] Richa CheemaPleluz note:CommentNormalThe [facility] CenterComment on above: Result Comment: Protein electrophoresis scan will follow via computer, mail, or director of architecture delivery.Performed By: #### PRTELEC #### [facility] [address] [address] [address] Richa CheemaProtein [Mass/Vol]6.3 g/dLNormal6.0-8.5ThUniversity Hospitals Ahu[facility] Comment on above:Performed By: #### PRTELEC #### [facility] [address] [address] [address] Richa CheemaPlatedennys mean volume Auto (Bld) [Entitic vol]Ordered By: Claire Choi on 09-02-5150Xdkodgja mean volume (Bld) [Entitic vol]9.4 fL6.3-10.7 [place] [facility] HospitalPlatelets Auto (Bld) [#/Vol]Ordered By: Claire Choi on 63-17-6820Dbgliujdx (Bld) [#/Vol]254 10*3/vP701-792XzhmjbheqOhio State East HospitalProtein [Mass/volume] in Serum or PlasmaOrdered By: Claire Choi on 07-61-1324Nnkhgxl [Mass/Vol]6.2 g/dL6.1-7.9[facility] HospitalRBC Auto (Bld) [#/Vol]Ordered By: Claire Choi on 23-75-5788MNX (Bld) [#/Vol]4.37 10*6/uL3.60-5.00Tr[facility]ull Memorial Hospitalerum or plasma alanine aminotransferase measurement without P-5'-P (enzymatic activiOrdered By: Claire Choi on 47-50-4103PFL No additional P-5'-P [Catalytic activity/Vol]15 U/V54-16UukxfnekcTrumbull Memorial Hospitalerum or plasma albumin/globulin mass ratioOrdered By: Claire Choi on 05-31-2022 Albumin/Globulin [Mass ratio]1.3 {ratio}[facility] Hospitalerum or plasma alkaline phosphatase measurement (enzymatic activity/volume)Ordered By: Claire Choi on 79-98-8415OEN [Catalytic activity/Vol]90 U/L32-92 [facility] Hospitalerum or plasma aspartate aminotransferase measurement (enzymatic activity/volume)Ordered By: Claire Choi on 94-21-8757NIH [Catalytic activity/Vol]19 U/K20-28VgftcyaorTrumbull Memorial Hospitalerum or plasma calcium measurement (mass/volume)Ordered By: Claire Choi on 01-33-2649Doydkin [Mass/Vol]8.9 mg/dL8.2-10.2FCleveland Clinic Fairview Hospitalerum or plasma chloride measurement (moles/volume)Ordered By: Claire Choi on 57-58-2051Eqekqvle [Moles/Vol]106 mmol/P68-391KgyocxqiaTrumbull Memorial Hospitalerum or plasma glucose measurement (mass/volume)Ordered By: Claire Choi on 31-57-7788Htefchw [Mass/Vol]151 mg/oC37-586RqqrdvyaxOhio State East HospitalComment on above:ADA recommended reference range Random Glucose Reference Range is dependent on time and content of last meal. Glucose of more than 200 mg/dL in a nonstressed, ambulatory subject supports the diagnosis of Diabetes Mellitus.Serum or plasma potassium measurement (moles/volume)Ordered By: Claire Choi on 81-39-7311Zaagehqrg [Moles/Vol] 4.9 mmol/L3.5-5.1FCleveland Clinic Fairview Hospitalerum or plasma sodium measurement (moles/volume)Ordered By: Claire Choi on 02-18-2265Qmoyno [Moles/Vol]135 mmol/I249-967CzqvzabkyTrumbull Memorial Hospitalerum or plasma total bilirubin measurement (mass/volume)Ordered By: Claire Choi on 62-21-8653Yyjknzwwh [Mass/Vol]0.7 mg/dL0.3-1.2FZanesville City Hospital Serum or plasma total carbon dioxide measurement (moles/volume)Ordered By: Claire Choi on 00-77-1564GC4 [Moles/Vol]20.9 mmol/L22.0-30.0Tr[facility] Hospitalerum or plasma urea nitrogen measurement (mass/volume) Ordered By: Claire Choi on 35-22-0584Pnql nitrogen [Mass/Vol]28 mg/dL9-23 [facility] HospitalCBC AUTO DIFFon 70-12-9021IUNT #0.0 103/ul Normal0.0-0.1The [facility] CenterComment on above:Performed By: #### MG, RENAL, URIC #### [facility] [address] [place] [address] Dr. Richa CheemaBasophils/100 WBC (Bld)0.4 %Normal0.2-2.0The [facility] Comment on above:Performed By: #### MG, RENAL, URIC #### [facility] [address] [address] [address] Richa Mark #0.1 103/ulNormal0.0-0.7The [facility] CenterComment on above: Performed By: #### MG, RENAL, URIC #### [facility] [address] [address] [address] Richa Madrigalosinophils/100 WBC (Bld)1.2 %Normal0.9-7.0The [facility] Comment on above:Performed By: #### MG, RENAL, URIC #### [facility] [address] [address] [address] Richa Madrigalrythrocyte distribution width (RBC) [Ratio]13.5 %Qngjtw85.0-15.0 The [facility] CenterComment on above:Performed By: #### MG, RENAL, URIC #### [facility] [address] [place] [address] Dr. Richa CheemaHematocrit (Bld) [Volume fraction]41.3 %Ggiqvi21.0-48.0The [facility] CenterComment on above:Performed By: #### MG, RENAL, URIC #### [facility] [address] [place] [address] Dr. Richa CheemaHemoglobin (Bld) [Mass/Vol]13.5 g/hSWhidcu99.0-16.0The [facility] CenterComment on above:Performed By: #### MG, RENAL, URIC #### [facility] [address] [place] [address] Dr. Richa Ring #0.02 10e3/ulNormal0.00-0.03The [facility] CenterComment on above:Performed By: #### MG, RENAL, URIC #### [facility] [address] [place] [address] Dr. Richa Ring %0.2 %Normal0.0-0.5The [facility] CenterComment on above: Performed By: #### MG, RENAL, URIC #### [facility] [address] [place] [address] Dr. Richa Lloyd #2.6 103/ulNormal1.2-3.8The [facility] CenterComment on above:Performed By: #### MG, RENAL, URIC #### [facility] [address] [place] [address] Dr. Richa Johnstonhocytes/100 WBC (Bld)32.0 %Gaokye41.5-60.0The [facility] on above:Performed By: #### MG, RENAL, URIC #### [facility] [address] [place] [address] Dr. Richa CopelandUAL DIFF REQNONormalThe [facility] CenterComment on above: Performed By: #### MG, RENAL, URIC #### [facility] [address] [place] [address] Dr. Richa Garcia (RBC) [Entitic mass]31.0 ehMlpxrf65.7-34.0The [facility] CenterComment on above:Performed By: #### MG, RENAL, URIC #### [facility] [address] [place] [address] Dr. Richa Last (RBC) [Mass/Vol]32.7 g/eWNfnvju07.9-35.2The [facility] CenterComment on above:Performed By: #### MG, RENAL, URIC #### [facility] [address] [place] [address] Dr. Richa Last (RBC) [Entitic vol]94.7 vUNogkwm66.0-99.0The [facility] CenterComment on above:Performed By: #### MG, RENAL, URIC #### [facility] [address] [place] [address] Dr. Richa Rios #0.5 103/ulNormal0.3-0.8The [facility] CenterComment on above:Performed By: #### MG, RENAL, URIC #### [facility] [address] [place] [address] Dr. Richa Ruelasocytes/100 WBC (Bld)5.7 %Normal1.7-12.0The [facility] Comment on above:Performed By: #### MG, RENAL, URIC #### [facility] [address] [place] [address] Dr. Richa Glez #4.9 103/ulNormal1.4-6.5The [facility] CenterComment on above:Performed By: #### MG, RENAL, URIC #### [facility] [address] [place] [address] Dr. Richa Pattonutrophils/100 WBC (Bld)60.5 %Tunznz48.0-75.0The [facility] CenterComment on above:Performed By: #### MG, RENAL, URIC #### [facility] [address] [place] [address] Dr. Richa Alegria mean volume (Bld) [Entitic vol]10.6 fLNormal9.5-13.5The [facility] CenterComment on above:Performed By: #### MG, RENAL, URIC #### [facility] [address] [place] [address] Dr. Richa CheemaPLT229 103/qnZznyyv153-638Fxo [facility] on above: Performed By: #### MG, RENAL, URIC #### [facility] [address] [address] [address] Richa CheemaRBC4.36 106/ulNormal4.20-5.40The [facility] on above:Performed By: #### MG, RENAL, URIC #### [facility] [address] [address] [address] Richa CheemaWBC8.1 103/ulNormal4.0-11.0The [facility] on above: Performed By: #### MG, RENAL, URIC #### [facility] [address] [place] [address] Dr. Richa CheemaGLYCOHEMOGLOBIN A1Con 99-05-9927KDH RECOMMENDATIONSEE BELOWNormal The [facility] CenterComvibra hospital of [facility] [place] on above:Result Comment: ADA RECOMMENDED LIMIT 4.0 - 6.0 ADA THERAPEUTIC TARGET < 7.0 ACTION SUGGESTED > 7.0Performed By: #### HH #### [facility] [address] [place] [address] Dr. Richa CheemaGlucose [Mass/Vol]166 mg/dLNormalThe [facility] on above:Performed By: #### HH #### [facility] [address] [place] [address] Dr. Richa CheemaHbA1c (Bld) [Mass fraction]7.4 %Critically high4.5-6.2[facility] on above:Performed By: #### HH #### [facility] [address] [place] [address] Dr. Richa CheemaPROF 14(COMP METB)on 27-55-7909Gfirnnp [Mass/Vol]3.4 g/dLNormal 3.4-5.0[facility] on above:Performed By: #### MG, RENAL, URIC #### [facility] [address] [place] [address] Dr. Richa CheemaAlbumin/Globulin [Mass ratio]1.0 {ratio}NormalThe Stantonville HospitalComment on above:Performed By: #### MG, RENAL, URIC #### [facility] [address] [address] [address] Richa Mascorro [Catalytic activity/Vol]111 U/NFxnpuz33-051Lbc [facility] CenterComment on above:Performed By: #### MG, RENAL, URIC #### [facility] [address] [address] [address] Richa Vang [Catalytic activity/Vol]21 U/FDomvqm67-99Ply [facility] CenterComment on above:Performed By: #### MG, RENAL, URIC #### [facility] [address] [address] [address] Richa Moratayaon gap [Moles/Vol]14.1 mmol/LNormalThe [facility] Comment on above:Performed By: #### MG, RENAL, URIC #### [facility] [address] [address] [address] Richa CheemaAST [Catalytic activity/Vol]13 U/LCritically imj28-72Jzf [facility] on above:Performed By: #### MG, RENAL, URIC #### [facility] [address] [address] [address] Richa CheemaBilirubin [Mass/Vol]0.3 mg/dLNormal0.2-1.0The [facility] Comment on above:Performed By: #### MG, RENAL, URIC #### [facility] [address] [address] [address] Richa CheemaCalcium [Mass/Vol]9.1 mg/dLNormal8.5-10.1The [facility] Comment on above:Performed By: #### MG, RENAL, URIC #### [facility] [address] [address] [address] Richa CheemaChloride [Moles/Vol]107 mmol/ZTbierh54-586Wrw [facility] Comment on above:Performed By: #### MG, RENAL, URIC #### [facility] [address] [address] [address] Richa CheemaCO2 [Moles/Vol]23.7 mmol/UNiqhms21.0-32.0The [facility] Comment on above:Performed By: #### MG, RENAL, URIC #### [facility] [address] [place] [address] Dr. Richa CheemaCreatinine [Mass/Vol]2.56 mg/dLCritically high0.55-1.02The [facility] CenterComment on above:Performed By: #### MG, RENAL, URIC #### [facility] [address] [place] [address] Dr. Chaudhry ChangEGFR-AF ATQHFJSQ35 mL/min/1.78z1Abwgdobzev low>=60The [facility] CenterComment on above:Performed By: #### MG, RENAL, URIC #### [facility] [address] [place] [address] Dr. Richa MadrigalGFR-NON AF BREFBULV85 mL/min/1.82e6Gqihessigq low>=60The [facility] CenterComment on above:Performed By: #### MG, RENAL, URIC #### [facility] [address] [place] [address] Dr. Richa CheemaGlobulin (S) [Mass/Vol]3.4 g/dLNormalThe [facility] CenterComment on above:Performed By: #### MG, RENAL, URIC #### [facility] [address] [place] [address] Dr. Richa CheemaGlucose [Mass/Vol]211 mg/dLCritically zwde38-093Crn [facility] CenterComment on above:Performed By: #### MG, RENAL, URIC #### [facility] [address] [place] [address] Dr. Richa CheemaPotassium [Moles/Vol]4.8 mmol/LNormal3.5-5.1The [facility] Comment on above:Performed By: #### MG, RENAL, URIC #### [facility] [address] [place] [address] Dr. Richa CheemaProtein [Mass/Vol]6.8 g/dLNormal6.4-8.2The [facility] Comment on above:Performed By: #### MG, RENAL, URIC #### [facility] [address] [place], [place] [address] Dr. Richa CheemaSodium [Moles/Vol]140 mmol/KXdgegh482-868Tip [facility] Comment on above:Performed By: #### MG, RENAL, URIC #### [facility] [address] [address] [address] Richa CheemaUrea nitrogen [Mass/Vol]29.0 mg/dLCritically high7.0-18.0The [facility] CenterComment on above:Performed By: #### MG, RENAL, URIC #### [facility] [address] [address] [address] Richa CheemaUrea nitrogen/Creatinine [Mass ratio]11.3 mg/mgNormalThe [facility] CenterComment on above:Performed By: #### MG, RENAL, URIC #### [facility] [address] [address] [address] Richa Johnstonvid-19 PCR (CVDTB)on 49-28-2534LDTN-CoV-2 (COVID-19) RNA RADHA+probe Ql (Unsp spec)DetectedCritically abnormalNOT DETECTEDThe [facility] CenterComment on above:Result Comment: This test is not yet approved or cleared by the [place] FDA. When there are no FDA-approved or cleared tests available, and other criteria are met, FDA can make tests available under an emergency access mechanism called an Emergency Use Authorization (EUA). The EUA for this test is supported by the [place] of Health and Human Service's (HHS's) declaration [...] be used). Performed By: #### CVDTBH #### [facility] [address] [place] [address] Dr. Richa CheemaXR LSPINE MIN 4 VIEWSon 71-92-1663MW LSPINE MIN 4 VIEWS EXAMINATION: XR LSPINE [...] Electronically authenticated by: DIANN IBANEZ Date: 2022-04-14 11:25[facility] CampusCT [facility] WO CONon 34-90-9020CB HEAD WO CONEXAMINATION: CT HEAD WO CON [...] Electronically authenticated by: DIANN IBANEZ Date: 2022-04-07 15:47[facility]Labor[facility] - Chemistry and Chemistry - challengeOrdered By: Akin Suarez on 49-74-7119Xwxovmfdy [Mass/Vol]2.0 mg/dL1.6-2.6FZanesville City HospitalNo Panel InformationOrdered By: Akin Suarez on - Hydroxy Vitamin D Total38.5 ng/lL48-653DrzqcrrdfOhio State East HospitalComment on above:VITAMIN D STATUS 25(OH)VITAMIN D RANGE (ng/mL) Deficient <20 Insufficient 20 to <30 Sufficient 30 to 100 Reference: Caro Vallejo, Marguerite MCMAHON, et al. Evaluation,treatment, and prevention of vitamin D deficiency; an Endocrine Society clinical practice guideline. JCEM. 2010; 96(7):1911-30.VITAMIN D STATUS 25(OH)VITAMIN D RANGE (ng/mL) Deficient <20 Insufficient 20 to <32Fzswmlzrbi09 to 100Reference: Caro Vallejo, Marguerite MCMAHON, et al. Evaluation,treatment, and prevention of vitamin D deficiency; an Endocrine Society clinical practice guideline. JCEM. 2010; 96(7):1911-.Phosphate [Mass/volume] in Serum or PlasmaOrdered By: Akin Suarez on 20-13-1777Lbmblltaq [Mass/Vol]3.7 mg/dL2.5-4.6FCleveland Clinic Fairview Hospitalerum or plasma intact parathyroid hormone measurement (mass/volume)Ordered By: Akin Suarez on 54-77-1589Wdjjkagvhf.intact [Mass/Vol]137.7 pg/uJYpgz28-65Vznvbesjr[address] [place], [place] [address]erum or plasma uric acid measurement (mass/volume)Ordered By: Akin Suarez on 29-23-4378Mqkhz [Mass/Vol]4.8 mg/dL2.6-7.2FZanesville City HospitalTobacco Screening.on 57-18-3087Ktsj risk assessmenta) No falls within the last year-[facility] Work Phone: Tobacco use status CPHSb) NoMP-[facility] 250 DO Work Phone: CT biopsyOrdered By: Louis Bradley on 24-70-1567BF ocehnx19 HoursOhio State East HospitalIgA [Mass/volume] in Serum or PlasmaOrdered By: Louis Bradley on 93-46-4210FyI [Mass/Vol]65 mg/kU83-415 [facility] HospitalIgG [Mass/volume] in Serum or PlasmaOrdered By: Louis Bradley on 63-47-3107XoW [Mass/Vol]654 mg/jP845-3289VwntihwlkOhio State East HospitalIgM [Mass/volume] in Serum or PlasmaOrdered By: Louis Bradley on 03-15-7521SrV [Mass/Vol]23 mg/vX84-328VgzdeakeaOhio State East HospitalComment on above:Result confirmed on concentration. Performed at: [address] [id number] Enamel Sprayer: Elpidio Delgado PhD, Phone: [phone] confirmed on concentration.Performed at: [address] [id number] Director: Elpidio Delgado PhD, Phone: [phone] for UrineOrdered By: Louis Bradley on 26-12-6047Fqlxwmjphfdpsz Immunofixation (U) [Interp]See commentAbnormal.[place] [facility] HospitalComment on above: Bence Jenkins Protein positive; kappa type. Performed at: [facility] [id number] Enamel Sprayer: Elpidio Delgado PhD, Phone: [phone] Jenkins Protein positive; kappa type.Performed at: [address] [id number] Director: Elpidio Delgado PhD, Phone: [phone] Immunofixation (U) [Interp]Immunofixation for UrineAbnormal.[facility] HospitalComment on above:Bence Jenkins Protein positive; kappa type.Performed at: [address] [id number] Director: Elpidio Delgado PhD, Phone: [phone] ultrasound (IVUS) of initial vesselOrdered By: Louis Bradley on 24-05-5930Mmddoyoqprecn ultrasound (IVUS) of initial vesselIntravascular ultrasound (IVUS) of initial [facility] HospitalNo Panel InformationOrdered By: Louis Bradley on 12-38-4084Tdquu ImmunofixationSee comment.[facility] HospitalComment on above:Immunofixation shows IgG monoclonal protein with kappa light chain specificity. Please note that samples from patients receiving DARZALEX(R) (daratumumab) treatment can appear as an IgG kappa and mask a complete response. If this patient is receiving IRMA, this HAILEE assay interference can be removed by ordering test number [id number]- Immunofixation, Daratumumab- Specific, Serum and submitting a [...] interference can be removedby ordering test number [id number]- Immunofixation, Daratumumab-Specific, Serum and submitting a new sample for testing orby calling the lab to add this test to the current sample.Urine Albumin 24 Hours33.2 %.[facility] HospitalUrine Nsdjb-1-Fumlndbv 4.3 %.[facility] HospitalUrine Ludab-6-Lpifyhtwx80.0 %.[facility] HospitalUrine Beta Wvpngnbm51.7 %.[facility] HospitalUrine Gamma Globulin9.8 %.[facility] HospitalUrine IEP M- Krystian % 24 Hr21.1 %HighNot ObservedOhio State East HospitalUrine Random Prot Electrophor NoteSee comment.[facility] HospitalComment on above:Protein electrophoresis scan will follow via computer, mail, or director of architecture delivery.Protein electrophoresis scan will follow via computer,mail, or director of architecture delivery.33.2 %.[facility]4.3 % .[facility]16.0 %.[facility]36.7 % .[facility]9.8 %.[facility]21.1 % HighNot ObservedTrumbull Memorial Hospitalee comment.[facility] HospitalProtein [Mass/time] in 24 hour UrineOrdered By: Louis Bradley on 92-93-7905Kqelesu (24H U) [Mass/Time]125 mg/24 zn78-545KygkbjyroOhio State East HospitalProtein (24H U) [Mass/Time]Protein [Mass/time] in 24 hour Urine 30-150Ohio [facility] East HospitalProtein [Mass/volume] in UrineOrdered By: Louis Bradley on 33-36-0796Fbepdkx (U) [Mass/Vol]8.5 mg/dLNot Estab.[facility] HospitalProtein.monoclonal [Mass/time] in 24 hour Urine by ElectrophoresisOrdered By: Louis Bradley on 95-54-4326Bbiwqpq.monoclonal Elph (24H U) [Mass/Time]26.5 mg/24 hrHighNot ObservedOhio State East HospitalProtein.monoclonal Elph (24H U) [Mass/Time]Protein.monoclonal [Mass/time] in 24 hour Urine by ElectrophoresisHighNot ObservedOhio State East HospitalUrine volume measurementOrdered By: Louis Bradley on 82-32-4663Ohyekufw volume (U)1475 mlTrumbull Memorial Hospitalpecimen volume (U)Urine volume measurementOhio State East HospitalUrine culture routineon 76-10-5663Ytuwzeam identified Cx Nom (U)Pseudomonas aeruginosaOhio State East HospitalAutomated epithelial cells count in urine sediment (number/area) on 41-16-9205Bbbeoeglaa cells Auto (Urine sed) [#/Area]0-1 [HPF]0-2FZanesville City HospitalAutomated erythrocytes count in urine sediment (number/area)on 41-05-0914TWU Auto (Urine sed) [#/Area]Innumerable [HPF]0-4 [facility] HospitalAutomated leukocytes count in urine sediment (number/area)on 54-97-3469MTS Auto (Urine sed) [#/Area]0-1 [HPF]0-4FZanesville City HospitalAutomated urine specific gravity by refractometryon 55-82-0508Nfbxceuv gravity Refractometry automated (U) [Rel density]1.009 1.001-1.030[facility] HospitalComment on above:Rechecked by refractometerBacteria identified Cx Nom (U)on 68-66-4007Nhhgynntged aeruginosa AbnormalOhio State East HospitalPseudomonas aeruginosaAbnormalOhio State East HospitalBilirubin Test strip Ql (U)on 41-43-1571Kzghxwyvg Ql (U) See commentNegativeOhio State East HospitalComment on above:Unable to obtain accurate result due to color interference.Color Auto (U)on 02-24-2021 Color (U)RedYellowOhio State East HospitalCreatinine [Mass/volume] in Urineon 36-21-1013Bfmvourfzg (U) [Mass/Vol]77.2 mg/dLOhio State East HospitalComment on above:No reference range establishedKetones Auto test strip (U) [Mass/Vol]on 66-85-5209Dndmqil (U) [Mass/Vol]See commentNegUniversity Hospitals Conneaut Medical CenterComment on above:Unable to obtain accurate result due to color interference.Nitrite Test strip Ql (U)on 57-11-7193Xjcvthe Ql (U)See commentNegUniversity Hospitals Conneaut Medical CenterComment on above:Unable to obtain accurate result due to color interference.Protein Auto test strip (U) [Mass/Vol]on 67-51-0722Dkfbzri (U) [Mass/Vol]See commentNegUniversity Hospitals Conneaut Medical CenterComment on above:Unable to obtain accurate result due to color interference.Urine bacteria detection by automated methodon 02-24-2021 Bacteria Auto Ql (U)None seenNone [facility] Medical CenterUrine clarity by refractometry automatedon 01-00-4226Jaokcpk Refractometry automated (U)TurbidCleUniversity Hospitals Portage Medical CenterUrine culture routineon 57-08-3722Lgavenqa identified Cx Nom (U)Pseudomonas aeruginosaAbThe Surgical Hospital at SouthwoodsBacteria identified Cx Nom (U)Pseudomonas aeruginosa AbnormalOhio State East HospitalUrine glucose measurement by automated test strip (mass/volume)on 41-00-9598Dujhcfn Auto test strip (U) [Mass/Vol]See commentNoProtestant HospitalComment on above:Unable to obtain accurate result due to color interference.Urine hemoglobin detection by automated test stripon 75-61-5612Xmauhwxyoo Auto test strip Ql (U)See comment NegativeOhio State East HospitalComment on above:Unable to obtain accurate result due to color interference.Urine leukocyte esterase detection by automated test stripon 43-80-1976Ouvzpwkuo esterase Auto test strip Ql (U)See commentNegUniversity Hospitals Conneaut Medical CenterComment on above:Unable to obtain accurate result due to color interference.Urine protein/creatinine ratio on 34-33-4340Ghjpovn/Creatinine (U) [Ratio]2098 mg/g{Cre}High0-200Ohio [facility] East HospitalUrobilinogen Auto test strip (U) [Mass/Vol]on 02-24-2021 Urobilinogen (U) [Mass/Vol]See commentNormalOhio State East Hospital Comment on above:Unable to obtain accurate result due to color interference.pH Auto test strip (U)on 70-12-2981zB (U)See comment5.0-9.0[facility] HospitalComment on above:Unable to obtain accurate result due to color interference.Laboratory - Chemistry and Chemistry - challengeon 10-28-2020 Cobalamin (Vitamin B12) [Mass/Vol]506 pg/pM516-298XagnkzqbzOhio State East HospitalLaboratory - Hematology and Cell countson 29-48-1264CPV (Bld) [#/Vol]10.0 10*3/uL4.5-11.0[facility] HospitalNo Panel Informationon 38-18-730371.0 10*3/uL4.5-11.0[facility]506 pg/jU516-230 [facility] HospitalLaboratory - Microbiology and Antimicrobial susceptibilityon 28-88-1273Pptahiiw identified Cx Nom (U)[facility] HospitalLaboratory - Urinalysison 92-44-6142Wabfrgp casts LM Ql (Urine sed)0-8 [LPF]0-8[facility] HospitalUrine culture routineon 46-03-0272Mqbdryms identified Cx Nom (U)bacilli - 1 DayTrumbull Memorial Hospitalerum intrinsic factor blocking antibody detection by radioimmunoassay (MAGGIE)on 21-65-9521Difeyqpvo factor blocking Ab MAGGIE Ql (S)0.9 AU/mL0.0-1.1FZanesville City HospitalComment on above:Performed at: [address] [id number] Enamel Sprayer: Britton Valente MD, Phone: [phone] at: [address] [id number] Director: Britton Valente MD, Phone: [phone] factor blocking Ab MAGGIE Ql (S)Serum intrinsic factor blocking antibody detection by radioimmunoassay (MAGGIE)0.0-1.1FZanesville City HospitalComment on above:Performed at: [facility] [employer] [id number] Director: Britton Valente MD, Phone: [phone] parietal cell antibody assay (units/volume)on 43-61-4389Mvwybjed cell Ab Qn (S)1.9 Units0.0-20.0[facility] HospitalComment on above:Negative 0.0 - 20.0 Equivocal 20.1 - 24.9 Positive >24.9 Parietal Cell Antibodies are found in 90% of patients with pernicious anemia and 30% of first degree relatives with pernicious anemia. Performed at: [facility] [employer] [id number] Enamel Sprayer: Elpidio Delgado PhD, Phone: [phone] 0.0 - 20.0 Equivocal 20.1 - 24.9 Positive >24.9Parietal Cell Antibodies are found in 90% of patientswith pernicious anemia and 30% of first degreerelatives with pernicious anemia.Performed at: [facility] [id number] Director: Elpidio Delgado PhD, Phone: [phone] cell Ab Qn (S)Serum parietal cell antibody assay (units/volume)0.0-20.0[facility] HospitalComment on above:Negative 0.0 - 20.0 Equivocal 20.1 - 24.9 Positive >24.9Parietal Cell Antibodies are found in 90% of patientswith pernicious anemia and 30% of first degreerelatives with pernicious anemia.Performed at: [facility] [id number] Director: Elpidio Delgado PhD, Phone: [phone] Glucometer (dC) [Mass/Vol]on 12-77-7552Mjbfpkn [Mass/Vol]133 mg/dLOhio State East HospitalComment on above:Random Glucose Reference Range is dependent on time and content of last meal. Glucose of more than 200 mg/dL in a nonstressed, ambulatory subject supports the diagnosis of Diabetes Mellitus. Glucose [Mass/Vol]Capillary blood glucose measurement by glucometer (mass/volume)[facility] HospitalComment on above:Random Glucose Reference Range is dependent on time and content of last meal. Glucose of more than 200 mg/dL in a nonstressed, ambulatory subject supports the diagnosis of Diabetes Mellitus.Glucose mean value [Mass/volume] in Blood Estimated from glycated hemoglobinon 38-32-0139Pqpjpnt glucose Estimated from glycated hemoglobin (Bld) [Mass/Vol]183 mg/dLOhio State East HospitalHbA1c (Bld) on 10-15-6957XrD5l (Bld) [Mass fraction]8.0 %4.3-5.6FZanesville City HospitalComment on above:Increased risk for diabetes: 5.7 - 6.4 diabetes: >6.4 glycemic control for adults with diabetes: <7.0Increased risk for diabetes: 5.7 - 6.4diabetes: >6.4glycemic control for adults with diabetes: <7.0IgA [Mass/volume] in Serum or Plasmaon 02-96-2739ZuF [Mass/Vol]65 mg/eQ47-762 [facility] HospitalIgA [Mass/Vol]IgA [Mass/volume] in Serum or Xbdgju64-382IduksuevxOhio State East HospitalIgG [Mass/volume] in Serum or Plasmaon 57-73-3850EuD [Mass/Vol]487 mg/pBYwh622-6052DsmdznlyiOhio State East HospitalIgG [Mass/Vol]IgG [Mass/volume] in Serum or UyxkjgKls484-0021HuypnzmchOhio State East HospitalIgM [Mass/volume] in Serum or Plasmaon 66-38-7347ByP [Mass/Vol]38 mg/yB33-209LuylbvtjaOhio State East HospitalComment on above: Performed at: [facility] [id number] Enamel Sprayer: Elpidio Delgado PhD, Phone: [phone] at: [facility] [employer] [id number] Director: Elpidio Delgado PhD, Phone: [phone] [Mass/Vol]IgM [Mass/volume] in Serum or Voqujy85-841 [facility] HospitalComment on above:Performed at: - [facility] [id number] Director: Elpidio Delgado PhD, Phone: [phone] or plasma 25-hydroxycalciferol measurement (mass/volume) on 63-41-036013092210-uumqqssinngprq D2 [Mass/Vol]<1.0 ng/mL.[facility]25-hydroxyvitamin D2 [Mass/Vol]Serum or plasma 25- hydroxycalciferol measurement (mass/volume).[facility] Serum or plasma calcidiol measurement (mass/volume)on 31-71-712004- hydroxyvitamin D3 [Mass/Vol]65 ng/mL.[facility] HospitalComment on above:Performed at: [facility] [address] [place], [place] [id number] Enamel Sprayer: Marcelino Estes MD, Phone: [phone] at: [facility] [address] [place] [id number] Director: Marcelino Estes MD, Phone: [phone]-otrevrtpbvbxsa D3 [Mass/Vol]Serum or plasma calcidiol measurement (mass/volume).[facility] Comment on above:Performed at: [facility] [address] [place] [id number] Director: Marcelino Estes MD, Phone: [phone] Vital Signs Date TimeVital SignValuePerforming MaegyvsbuQdnrmjom65-51-0677 11:160400Body ucckuj620.6 cmElicia Rhodes MD Work Phone: [facility]07-11-2025 11:160400 Body mass index (BMI) [Ratio]31.41 kg/r0CgbjzmiElicia Rhodes MD Work Phone: [phone] [place], [place] [address]07-11-2025 11:16040 Body rozusb01.01 kgElicia Rhodes MD Work Phone: [phone]07-11-2025 11:16-0400 Diastolic blood kgznamtw40 mm[Hg]Elicia Rhodes MD Work Phone: [phone]07-11-2025 11:16-0400 Heart rate67 /Mary Rhodes MD Work Phone: [phone]07-11-2025 11:16-0400 Systolic blood hnxzhbfa784 mm[Hg]Elicia Rhodes MD Work Phone: [phone]05-14-2025 13:41-0400 Diastolic blood rfayevtr14 mm[Hg]Elicia Rhodes MD Work Phone: [phone]05-14-2025 13:41-0400 Systolic blood joxebqiv802 mm[Hg]Elicia Rhodes MD Work Phone: [phone]05-14-2025 13:40-0400 Body uspkgm819.6 cmElicia Rhodes MD Work Phone: [phone]05-14-2025 13:40-0400 Body mass index (BMI) [Ratio]31.58 kg/r7XyrkcfaElicia Rhodes MD Work Phone: [phone]05-14-2025 13:40-0400 Body .46 kgElicia Rhodes MD Work Phone: [phone]05-14-2025 13:40-0400 Heart rate66 /Mary Rhodes MD Work Phone: [phone]05-12-2025 13:29-0400 Body ufgbfa870.6 cmAdorinda PETERSON Work Phone: [facility] HospitalJotasmchmw99-47-9566 13:29-0400Body mass index (BMI) [Ratio]29.86 kg/m2Lia PETERSON Work Phone: [facility] HospitalLsxtvcpmlx56-31-1121 13:29-0400Body .92 kgLia Velazco PA Work Phone: [facility] HospitalSdaeviefdg37-31-4673 13:29040Diastolic blood gkdltwyq06 mm[Hg]Lia Velazco PA Work Phone: [facility] HospitalBhdrfvsrxm98-81-8108 13:29-0400Heart rate64 /min Lia Velazco PA Work Phone: [facility] HospitalDbqoyielku71-98-6916 13:29-0400Systolic blood kndoiwxs012 mm[Hg]Lia Velazco PA Work Phone: [facility] HospitalEwvivkuoat94-89-7022 14:040Body sdswyi647.56 cmCurt Clark MD Work Phone: [phone]05-01-2025 14:21-0400 Body mass index (BMI) [Ratio]31.6 kg/p3VifncnCurt Clark MD Work Phone: [phone]05-01-2025 14:21-0400 Body .54 kgCurt Clark MD Work Phone: [phone]05-01-2025 14:21-0400 Diastolic blood qdyximkl10 mm[Hg]Curt Clark MD Work Phone: [phone] [address]05-01-2025 14:21-0400 Heart rate65 /Rebecca Clark MD Work Phone: [phone] [place], [place] [address]405-01-2025 14:21-0400 Respiratory rate12 /Rebecca Clark MD Work Phone: [phone]05-01-2025 14:21-0400 SaO2% (BldA) [Mass fraction]99 %Curt Clark MD Work Phone: 1(633)[address]05-01-2025 14:21-0400 Systolic blood nwwaidrh557 mm[Hg]Curt Clark MD Work Phone: 1(120)[address]04-15-2025 10:13-0400 Diastolic blood iangfeae94 mm[Hg]Curt Clark MD Work Phone: [facility]04-15-2025 10:13-0400 Heart rate73 /Rebecca Clark MD Work Phone: [facility]04-15-2025 10:13-0400 SaO2% (BldA) [Mass fraction]96 %Curt Clark MD Work Phone: [facility]04-15-2025 10:13-0400 Systolic blood actmzubi369 mm[Hg]Curt Clark MD Work Phone: [facility]04-15-2025 08:30-0400 Respiratory rate25 /Rebecca Clark MD Work Phone: [facility]04-08-2025 15:47-0400 Body ruohne851.6 cmJerrica Overton DIVISION SUPERINTENDENT-DIRECT[employer]S Work Phone: 1(856)264-[address] [place], [place] 9132404-08-2025 15:47-0400 Body mass index (BMI) [Ratio]31.76 kg/a7PdgvoJerrica Overton DIVISION SUPERINTENDENT-DIRECT[employer]S Work Phone: 1(980)964-[address] [place], [place] 9132404-08-2025 15:47-0400 Body xxadeh12.92 kgJerrica Overton DIVISION SUPERINTENDENT-[employer]S Work Phone: 1(203)365-[address] [place], [place] 9132404-08-2025 15:47-0400 Diastolic blood cjwetcjg79 mm[Hg]Jerrica Overton DIVISION SUPERINTENDENT-DIRECT[employer]S Work Phone: 1(483)[address] [place], [place] 9132404-08-2025 15:47-0400 Heart yfop628 /Elyssa Overton DIVISION SUPER[employer]ENDENT-DIRECT[employer]S Work Phone: 1(631)499-[address] [place], [place] 9132404-08-2025 15:47-0400 Systolic blood ovagzmxn032 mm[Hg]Jerrica Overton DIVISION SUPERINTENDENT-DIRECT[employer]S Work Phone: 1(628)802-[address] [place], [place] 9132403-31-2025 10:54-0400 Body afhhtu348.56 cmCurt Clark MD Work Phone: [facility]03-31-2025 10:54-0400 Body mass index (BMI) [Ratio]31.4 kg/g0RsesexCurt Clark MD Work Phone: 1(739)904-41[facility]03-31-2025 10:54-0400 Body ydnhsr33.12 kgCurt Clark MD Work Phone: 1(821)412-60[facility]03-31-2025 10:54-0400 Diastolic blood liacpwke28 mm[Hg]Curt Clark MD Work Phone: 1(251)581-85[facility]03-31-2025 10:54-0400 Heart avwv149 /Rebecca Clark MD Work Phone: 1(552)[address]03-31-2025 10:54-0400 Respiratory rate14 /Rebecca Clark MD Work Phone: 1(514)498[facility]96[facility]03-31-2025 10:54-0400 SaO2% (BldA) [Mass fraction]98 %Curt Clark MD Work Phone: 1(649)707-37[facility]03-31-2025 10:54-0400 Systolic blood ksxblrhi77 mm[Hg]Curt Clark MD Work Phone: 1(275)637-37[facility]02-26-2025 13:18-0500 [facility] 13:18-0500Body mass index (BMI) [Ratio]31.65 kg/v6TuoplmP[facility]02-26-2025 13:18-0500Body yievub43.64 kg [facility]02-26-2025 13:18-0500 Diastolic blood nantzjlg71 mm[Hg][facility]02-26-2025 13:18-0500Heart rate68 /[facility]02-26-2025 13:18-0500Systolic blood mm[Hg] [facility]02-19-2025 10:30-0500 Diastolic blood cmygzvtx27 mm[Hg]Curt Clark MD Work Phone: 1(498)35535 [address]02-19-2025 10:30-0500 Heart rate86 /minCurt Clark MD Work Phone: 1(827)[address] [place], [place] 4569602-19-2025 10:30-0500 Respiratory rate22 /Rebecca Clark MD Work Phone: 1(243)[address] [place], [place] 4569602-19-2025 10:30-0500 SaO2% (BldA) [Mass fraction]97 %Curt Clark MD Work Phone: 1(687)[address] [place], [place] 4569602-19-2025 10:30-0500 Systolic blood asnxbsyd880 mm[Hg]Curt Clark MD Work Phone: 1(976)[address] [place], [place] 4569602-19-2025 08:05-0500 Inhaled oxygen flow rate2 L/minCurt Clark MD Work Phone: 1(102)[address] [place], [place] 4569602-19-2025 08:02-0500 Body nzkawc477.56 cmCurt Clark MD Work Phone: 1(162)[address] [place], [place] 4569602-19-2025 08:02-0500 Body pokyqc51.1 kgCurt Clark MD Work Phone: 1(650)[address] [place], [place] 4569602-12-2025 11:09-0500 Body yeajpd109.64 cmCurt Clark MD Work Phone: 1(819)[address] [place], [place] 4569602-12-2025 11:09-0500 Body mass index (BMI) [Ratio]29.5 kg/y6OwgdjbCurt Clark MD Work Phone: 1(153)[address] [place], [place] 4569602-12-2025 11:09-0500 Body fatwlp88.09 kgCurt Clark MD Work Phone: 1(395)[address] [place], [place] 4569602-12-2025 11:09-0500 Diastolic blood dyyibgzm70 mm[Hg]Curt Clark MD Work Phone: 1(999)[address] [place], [place] 4569602-12-2025 11:09-0500 Heart rate73 /Rebecca Clark MD Work Phone: 1(961)64435 [address]02-12-2025 11:09-0500 SaO2% (BldA) [Mass fraction]97 %Curt Clark MD Work Phone: 1(974)31735 [address]02-12-2025 11:09-0500 Systolic blood pacwsouc923 mm[Hg]Curt Clark MD Work Phone: 1(214)[address] [place], [place] 4569602-11-2025 14:40-0500 Body eiiagssbogm00.9 [degF]Curt Clark MD Work Phone: 1(632)[address] [place], [place] 4569602-11-2025 14:40-0500 Body byjrwe61.46 kgCurt Clark MD Work Phone: 1(148)[address] [place], [place] 4569602-11-2025 14:40-0500 Diastolic blood mm[Hg]Curt Clark MD Work Phone: 1(699)11935 [address]02-11-2025 14:40-0500 Heart rate91 /Rebecca Clark MD Work Phone: 1(726)[address] [place], [place] 4569602-11-2025 14:40-0500 Respiratory rate18 /Rebecca Clark MD Work Phone: 1(687)[address] [place], [place] 4569602-11-2025 14:40-0500 SaO2% (BldA) [Mass fraction]98 %Curt Clark MD Work Phone: 1(610)32335 [address]02-11-2025 14:40-0500 Systolic blood gcfaskhd280 mm[Hg]Curt Clark MD Work Phone: 1(317)[address] [place], [place] 4569602-08-2025 08:00-0500 Body ptkfdabqdqj12.7 [degF]Curt Clark MD Work Phone: 1(382)[address] [place], [place] 4569602-08-2025 08:00-0500 Diastolic blood ysztetpg38 mm[Hg]Curt Clark MD Work Phone: 1(050)75435 [address]02-08-2025 08:00-0500 Heart rate89 /minMarcia Clark MD Work Phone: 1(801)[address] [place], [place] 4569602-08-2025 08:00-0500 Respiratory rate16 /Rebecca Clark MD Work Phone: 1(447)[address] [place], [place] 4569602-08-2025 08:00-0500 SaO2% (BldA) [Mass fraction]98 %Curt Clark MD Work Phone: 1(925)[address] [place], [place] 4569602-08-2025 08:00-0500 Systolic blood kenevcqs268 mm[Hg]Curt Clark MD Work Phone: 1(486)[address] [place], [place] 4569602-08-2025 06:00-0500 Body qfhlme12 kgCurt Clark MD Work Phone: 1(057)[address] [place], [place] 4569602-06-2025 13:23-0500 Body oqkole784.64 cmCurt Clark MD Work Phone: 1(173)[address] [place], [place] 4569602-05-2025 18:01-0500 Diastolic blood ilshnfoh47 mm[Hg]Curt Clark MD Work Phone: 1(045)[address] [place], [place] 4569602-05-2025 18:01-0500 Heart rate94 /Rebecca Clark MD Work Phone: 1(924)[address] [place], [place] 4569602-05-2025 18:01-0500 Respiratory rate16 /Rebecca Clark MD Work Phone: 1(776)[address] [place], [place] 4569602-05-2025 18:01-0500 SaO2% (BldA) [Mass fraction]94 %Curt Clark MD Work Phone: 1(548)[address] [place], [place] 4569602-05-2025 18:01-0500 Systolic blood ctmethoa115 mm[Hg]Curt Clark MD Work Phone: 1(823)[address] [place], [place] 4569602-05-2025 14:28-0500 Body yohzuyoxmqd94.8 [degF]Curt Clark MD Work Phone: 1(209)[address] [place], [place] 4569602-05-2025 11:47-0500 Body ahwjko000.64 cmCurt Clark MD Work Phone: [facility]02-05-2025 11:47-0500 Body iosooi286.5 kgCurt Clark MD Work Phone: [facility]01-24-2025 15:42-0500 Body plbnyb124.6 cmFadia [facility]01-24-2025 15:42-0500Body mass index (BMI) [Ratio]32.27 kg/r3UjyyntFadia [facility]01-24-2025 15:42-0500Body .28 kgFadia [facility]01-24-2025 15:42-0500Diastolic blood mphqwgme19 mm[Hg][facility]-24-2025 15:42-0500 Heart rate86 /minFadia [facility]01-24-2025 15:42-0500Systolic blood uibyuqje275 mm[Hg][facility]ia [facility]01-15-2025 14:02-0500Diastolic blood ohtbubdl50 mm[Hg]Curt Clark MD Work Phone: [facility]01-15-2025 14:02-0500 Heart rate79 /Rebecca Clark MD Work Phone: 1(052)279-55[facility]01-15-2025 14:02-0500 Systolic blood inazngmk648 mm[Hg]Curt Clark MD Work Phone: [facility]12-19-2024 13:40-0500 Body navges911.6 Ju Rhodes MD Work Phone: [facility]12-19-2024 13:40-0500 Body mass index (BMI) [Ratio]32.96 kg/t4YqhdhhdElicia Rhodes MD Work Phone: [facility]12-19-2024 13:40-0500 Body hawjcb53.09 kgElicia Rhodes MD Work Phone: [facility]12-19-2024 13:40-0500 Diastolic blood sdozaika21 mm[Hg]Elicia Rhodes MD Work Phone: [facility]12-19-2024 13:40-0500 Heart rate84 /Mary Rhodes MD Work Phone: [facility]12-19-2024 13:40-0500 Systolic blood cfomqqqz135 mm[Hg]Elicia Rhodes MD Work Phone: [facility]12-17-2024 14:04-0500 Body .64 cmCurt Clark MD Work Phone: 1(985)92135 [address]12-17-2024 14:04-0500 Body mass index (BMI) [Ratio]31.1 kg/q1PnxlrjCurt Clark MD Work Phone: 1(971)73835 [address]12-17-2024 14:04-0500 Body cjapuz61.54 kgCurt Clark MD Work Phone: 1(974)47635 [address]12-17-2024 14:04-0500 Diastolic blood ghjkghma47 mm[Hg]Curt Clark MD Work Phone: 1(129)81535 [address]12-17-2024 14:04-0500 Heart rate83 /Rebecca Clark MD Work Phone: 1(173)650-[address] [place], [place] 8054412-17-2024 14:04-0500 Systolic blood ysgfdwgx605 mm[Hg]Curt Clark MD Work Phone: 1(206)81035 [address]11-06-2024 15:07-0500 Body kvretl890.64 cmMD Curt Clark Work Phone: 1(775)234-[address] [place], [place] 8054411-06-2024 11:38-0500 Body eekdmxpihve67 [degF]MD Curt Clark Work Phone: 1(690)815-[address] [place], [place] 8054411-06-2024 11:38-0500 Diastolic blood uxdmzwkx91 mm[Hg]MD Curt Clark Work Phone: 1(816)446-[address] [place], [place] 8054411-06-2024 11:38-0500 Heart rate86 /minMD Curt Clark Work Phone: 1(298)67635 [address]11-06-2024 11:38-0500 SaO2% (BldA) [Mass fraction]98 %MD Curt Clark Work Phone: 1(079)929-[address] [place], [place] 8054411-06-2024 11:38-0500 Systolic blood vkzfqavx161 mm[Hg]MD Curt Clark Work Phone: 1(272)90835 [address]11-06-2024 07:31-0500 Respiratory rate20 /minMD Curt Clark Work Phone: 1(064)[address] [place], [place] 4569611-06-2024 05:34-0500 Body itwfbz75.3 kgMD Curt Clark Work Phone: 1(870)9[address]35 [address]11-05-2024 00:38-0500 Diastolic blood hdcaqzsq23 mm[Hg]MD Curt Clark Work Phone: 1(778)655[address]11-05-2024 00:38-0500 Heart rate90 /minMD Curt Clark Work Phone: 1(668)65135 [address]11-05-2024 00:38-0500 Respiratory rate20 /minMD Curt Clark Work Phone: 1(759)91035 [address]11-05-2024 00:38-0500 SaO2% (BldA) [Mass fraction]96 %MD Curt Clark Work Phone: 1(089)70435 [address]11-05-2024 00:38-0500 Systolic blood yffjrkev610 mm[Hg]MD Curt Clark Work Phone: 1(306)26935 [address]11-04-2024 20:43-0500 Body aipxyp389.64 cmMD Curt Clark Work Phone: 1(446)35735 [address]11-04-2024 20:43-0500 Body cowsutjnlke16.2 [degF]MD Curt Clark Work Phone: 1(419)[address] [place], [place] 4569611-04-2024 20:43-0500 Body hutqil38.25 kgMD Curt Clark Work Phone: 1(808)[address] [place], [place] 4569610-07-2024 10:48-0400 Body mass index (BMI) [Ratio]31 kg/m2MD Curt Clark Work Phone: 1(368)[address] [place], [place] 4569610-07-2024 10:48-0400 Diastolic blood mm[Hg]MD Curt Clark Work Phone: 1(852)[address] [place], [place] 4569610-07-2024 10:48-0400 Systolic blood droojdta164 mm[Hg]MD Curt Clark Work Phone: 1(278)[address] [place], [place] 4569610-07-2024 10:25-0400 Body .45 cmMD Curt Clark Work Phone: 1(184)[address] [place], [place] 4569610-07-2024 10:25-0400 Body .22 kgMD Curt Clark Work Phone: 1(876)[address] [place], [place] 4569610-07-2024 10:25-0400 Heart rate70 /minMD Curt Clark Work Phone: 1(991)[address] [place], [place] 4569610-07-2024 10:25-0400 Respiratory rate16 /minMD Curt Clark Work Phone: 1(639)[address] [place], [place] 4569610-07-2024 10:25-0400 SaO2% (BldA) [Mass fraction]97 %MD Curt Clark Work Phone: 1(891)[address] [place], [place] 4569610-04-2024 15:22-0400 Body ythzml778.09 cmMD Curt Clark Work Phone: 1(342)[address] [place], [place] 4569610-04-2024 15:22-0400 Body mass index (BMI) [Ratio]30.6 kg/m2MD Curt Clark Work Phone: 1(928)[address] [place], [place] 4569610-04-2024 15:22-0400 Body ustexqraxfx89.2 [degF]MD Curt Clark Work Phone: 1(859)[address] [place], [place] 4569610-04-2024 15:22-0400 Body .71 kgMD Curt Clark Work Phone: 1(834)[address] [place], [place] 4569610-04-2024 15:22-0400 Diastolic blood jsyqsqbt90 mm[Hg]MD Curt Clark Work Phone: 1(594)[address] [place], [place] 4569610-04-2024 15:22-0400 Heart rate78 /minMD Curt Clark Work Phone: 1(922)[address] [place], [place] 4569610-04-2024 15:22-0400 Respiratory rate20 /minMD Curt Clark Work Phone: 1(036)[address] [place], [place] 4569610-04-2024 15:22-0400 SaO2% (BldA) [Mass fraction]97 %MD Curt Clark Work Phone: 1(366)[address] [place], [place] 4569610-04-2024 15:22-0400 Systolic blood mm[Hg]MD Curt Clark Work Phone: 1(470)[address] [place], [place] 4569608-22-2024 13:06-0400 Body .09 cmMD Curt Clark Work Phone: 1(926)[address] [place], [place] 4569608-22-2024 13:06-0400 Body mass index (BMI) [Ratio]30.3 kg/m2MD Curt Clark Work Phone: 1(438)[address] [place], [place] 4569608-22-2024 13:06-0400 Body hamivhoscsf27.9 [degF]MD Curt Clark Work Phone: 1(563)[address] [place], [place] 4569608-22-2024 13:06-0400 Body wviyes47.81 kgMD Curt Clark Work Phone: 1(423)[address] [place], [place] 4569608-22-2024 13:06-0400 Diastolic blood ihdndjmv60 mm[Hg]MD Curt Clark Work Phone: 1(733)[address] [place], [place] 4569608-22-2024 13:06-0400 Heart rate79 /minMD Curt Clark Work Phone: 1(174)[address] [place], [place] 4569608-22-2024 13:06-0400 Respiratory rate16 /minMD Curt Clark Work Phone: 1(694)642[facility]86[facility]08-22-2024 13:06-0400 SaO2% (BldA) [Mass fraction]97 %MD Curt Clark Work Phone: 1(622)481[facility]62[facility]08-22-2024 13:06-0400 Systolic blood vkuwgjhl504 mm[Hg]MD Curt Clark Work Phone: 1(565)48735 [address]07-18-2024 11:10-0400 Body .09 cmMD Curt Clark Work Phone: 1(477)94135 [address]07-18-2024 11:10-0400 Body mass index (BMI) [Ratio]67.1 kg/m2MD Curt Clark Work Phone: 1(749)48035 [address]07-18-2024 11:10-0400 Body mass index (BMI) [Ratio]30.3 kg/m2MD Curt Clark Work Phone: 1(763)91835 [address]07-18-2024 11:10-0400 Body ymfbpx306 kgMD Curt Clark Work Phone: 1(035)48735 [address]07-18-2024 11:10-0400 Body qxdcni32.81 kgMD Curt Clark Work Phone: 1(442)31935 [address]07-18-2024 11:10-0400 Diastolic blood niijzkfl30 mm[Hg]MD Curt Clark Work Phone: 1(246)996-[address] [place], [place] 8054407-18-2024 11:10-0400 Heart rate68 /minMD Curt Clark Work Phone: 1(092)32035 [address]07-18-2024 11:10-0400 Systolic blood flvuiigq689 mm[Hg]MD Curt Clark Work Phone: 1(911)79735 [address]06-04-2024 13:55-0400 Body .6 cmElicia Rhodes MD Work Phone: [facility]06-04-2024 13:55-0400 Body mass index (BMI) [Ratio]34.33 kg/l5OhixadjElicia Rhodes MD Work Phone: 1(822)671-[address] [place], [place] 9132406-04-2024 13:55-0400 Body rzfedo71.72 kgElicia Rhodes MD Work Phone: 1(271)[address]06-04-2024 13:55-0400 Diastolic blood jyojxnre81 mm[Hg]Elicia Rhodes MD Work Phone: 1(731)[address]127 [address]06-04-2024 13:55-0400 Heart rate68 /minElicia Rhodes MD Work Phone: 1(067)07427 [address]06-04-2024 13:55-0400 Systolic blood fywxdwea989 mm[Hg]Elicia Rhodes MD Work Phone: 1(790)846-[address] [place], [place] 9132405-30-2024 09:27-0400 Body utewqa806.09 cmMD Curt Clark Work Phone: 1(990)13335 [address]05-30-2024 09:27-0400 Body mass index (BMI) [Ratio]30.4 kg/m2MD Curt Clark Work Phone: 1(961)651-[address] [place], [place] 8054405-30-2024 09:27-0400 Body .03 kgMD Curt Clark Work Phone: 1(907)863-33[facility]05-30-2024 09:27-0400 Diastolic blood qemxnddc28 mm[Hg]MD Curt Clark Work Phone: 1(823)097-39[facility]05-30-2024 09:27-0400 Heart rate65 /minMD Curt Clark Work Phone: [facility]05-30-2024 09:27-0400 Systolic blood ntfekzok590 mm[Hg]MD Curt Clark Work Phone: [facility]03-15-2024 15:01-0400 Body buzkjneeyli40.8 [degF]MD Curt Clark Work Phone: 1(974)298-01[facility]03-15-2024 15:01-0400 Body gzoirm58.71 kgMD Curt Clark Work Phone: 1(683)813-[address] [place], [place] 8054403-15-2024 15:01-0400 Diastolic blood ougkevof02 mm[Hg]MD Curt Clark Work Phone: 1(612)79235 [address]03-15-2024 15:01-0400 Heart rate64 /minMD Curt Clark Work Phone: 1(287)59935 [address]03-15-2024 15:01-0400 Respiratory rate16 /minMD Curt Clark Work Phone: 1(824)83435 [address]03-15-2024 15:01-0400 SaO2% (BldA) [Mass fraction]99 %MD Curt Clrak Work Phone: 1(518)87535 [address]03-15-2024 15:01-0400 Systolic blood bykhtlui453 mm[Hg]MD Curt Clark Work Phone: 1(171)37435 [address]02-21-2024 10:59-0500 Body kogyiy018 cmMD Curt Clark Work Phone: 1(009)82535 [address]02-21-2024 10:59-0500 Body mass index (BMI) [Ratio]32.5 kg/m2MD Curt Clark Work Phone: 1(605)20935 [address]02-21-2024 10:59-0500 Body .88 kgMD Curt Clark Work Phone: 1(583)69135 [address]02-21-2024 10:59-0500 Diastolic blood yobynyqv13 mm[Hg]MD Curt Clark Work Phone: 1(198)578-[address] [place], [place] 8054402-21-2024 10:59-0500 Heart rate71 /minMD Curt Clark Work Phone: 1(160)029-[address] [place], [place] 8054402-21-2024 10:59-0500 Respiratory rate18 /minMD Curt Clark Work Phone: 1(735)87935 [address]02-21-2024 10:59-0500 SaO2% (BldA) [Mass fraction]98 %MD Curt Clark Work Phone: [facility]02-21-2024 10:59-0500 Systolic blood jwgsitlm487 mm[Hg]MD Curt Clark Work Phone: [facility]01-18-2024 11:00-0500 Body mahqyv846.55 cmCurt Clark Other [facility]01-18-2024 11:00-0500 Body mass index (BMI) [Ratio]32.77 kg/u6LvgazoCurt Clark Other [employer] Other 01-18-2024 11:00-0500Body kxppal24.9 kgCurt Clark Other [employer] Other 01-18-2024 11:00-0500Body vqkano10.89 kgMD Curt Clark Work Phone: [facility]01-18-2024 11:00-0500 Diastolic blood gliwlria94 mm[Hg]Curt Clark Other [facility]01-18-2024 11:00-0500 Systolic blood xzdpbeyh277 mm[Hg]Curt Clark Other [facility]12-20-2023 10:34-0500 Body aduumk081.[address] [place], [place] 9362312-20-2023 10:34-0500 Body mass index (BMI) [Ratio]33.3 kg/m2Ely [address] [place] [address] 11-02-2023 10:34-0500Body kgEly [address] [place] [address] 11-02-2023 10:34-0500Diastolic blood ngailwfb23 mm[Hg][address]12-20-2023 10:34-0500Systolic blood ssohfrda286 mm[Hg][address]11-21-2023 14:04-0500Body rntjob959.6 cmElicia Rhodes MD Work Phone: [facility]11-21-2023 14:04-0500 Body mass index (BMI) [Ratio]31.31 kg/d3RetktfqElicia Rhodes MD Work Phone: 1(242)035-[address] [place], [place] 9132411-21-2023 14:04-0500 Body zychhk34 kgElicia Rhodes MD Work Phone: 1(703)41427 [address]11-21-2023 14:04-0500 Diastolic blood upwnnbdb65 mm[Hg]Elicia Rhodes MD Work Phone: 1(228)24827 [address]11-21-2023 14:04-0500 Heart rate72 /minElicia Rhodes MD Work Phone: 1(162)22027 [address]11-21-2023 14:04-0500 Systolic blood xnzkajpy339 mm[Hg]Elicia Rhodes MD Work Phone: 1(368)290-[address] [place], [place] 9132411-13-2023 14:00-0500 Body xciyrk731.55 cmCurt Clark Other [employer] Other 11-13-2023 14:00-0500Body mass index (BMI) [Ratio] 31.43 kg/f3JgrtjoCurt Clark Other [employer] Other 11-13-2023 14:00-0500Body .18 kgCurt Clark Other [employer] Other 11-13-2023 14:00-0500Diastolic blood baxfqhea78 mm[Hg] Curt Clark Other [employer] Other 11-13-2023 14:00-2435OxE6% (BldA) [Mass fraction]98 % Curt Clark Other [employer] Other 11-13-2023 14:00-0500Systolic blood ojbysybl889 mm[Hg] Curt Clark Other [employer] Other 10-31-2023 15:45-0400Body isfyeo880.55 cmCurt Clark Other [employer] Other 10-31-2023 15:45-0400Body mass index (BMI) [Ratio] 31.39 kg/h0FhrqorCurt Clark Other [employer] Other 10-31-2023 15:45-0400Body yrdlqhcicyc82.1 [degF]Curt Clark Other [employer] Other 10-31-2023 15:45-0400Body mbhyku86.09 kgCurt Clark Other [employer] Other 10-31-2023 15:45-0400Diastolic blood gvajecfp32 mm[Hg] Curt Clark Other [employer] Other 10-31-2023 15:45-0400Systolic blood znamiqos148 mm[Hg] Curt Clark Other [employer] Other 10-18-2023 13:30-0400Body .55 cmRobert Jim II Other [employer] Other 10-18-2023 13:30-0400Body mass index (BMI) [Ratio] 31.56 kg/o4Bvjazw [place] II Other [employer] Other 10-18-2023 13:30-0400Body .54 kgRobert Jim II Other [employer] Other 09-05-2023 10:44-0400Body dyhabc640.64 cmMD Curt Clark Work Phone: [facility]09-05-2023 10:40-0400 Body .5 [degF]MD Curt Clark Work Phone: [facility]09-05-2023 10:40-0400 Body .95 kgMD Curt Clark Work Phone: 1(331)610-71[facility]09-05-2023 10:40-0400 Diastolic blood fgzjmzhe69 mm[Hg]MD Curt Clark Work Phone: [facility]09-05-2023 10:40-0400 Heart rate79 /minMD Curt Clark Work Phone: [facility]09-05-2023 10:40-0400 Respiratory rate20 /minMD Curt Clark Work Phone: [facility]09-05-2023 10:40-0400 SaO2% (BldA) [Mass fraction]98 %MD Curt Clark Work Phone: [facility]09-05-2023 10:40-0400 Systolic blood ilubhnqv986 mm[Hg]MD Curt Clark Work Phone: [facility]08-11-2023 13:30-0400 Body .55 cmCurt Clark Other [facility] Other 08-11-2023 13:30-0400Body mass index (BMI) [Ratio] 30.58 kg/w1NrpaamCurt Clark Other [facility] [employer] Other 08-11-2023 13:30-0400Body cksrqi26.82 kgCurt Clark Other [employer] Other 08-11-2023 13:30-0400Diastolic blood mm[Hg] Curt Clark Other [employer] Other 08-11-2023 13:30-9661KuF6% (BldA) [Mass fraction]97 % Curt Clark Other [employer] Other 08-11-2023 13:30-0400Systolic blood khlmkouf355 mm[Hg] Curt Clark Other [employer] Other 08-10-2023 11:20-0400Body xbjcob475.55 cmAbdul Lopez Other [employer] [employer] Other 08-10-2023 11:20-0400Body wmswodmjnhw78.5 [degF]Akin Lopez Other [employer] Other 08-10-2023 11:20-0400Diastolic blood lqvnxhid37 mm[Hg] Akin Lopez Other [employer] Other 08-10-2023 11:20-0400Respiratory rate20 /minAbdul Lopez Other [employer] Other 08-10-2023 11:20-5823TyR2% (BldA) [Mass fraction]98 % Akin Lopez Other [employer] Other 08-10-2023 11:20-0400Systolic blood vjlewhoq843 mm[Hg] Akin Lopez Other [employer] Other 06-13-2023 11:30-0400Body tqjgax215.37 cmShannannicolejoni Amber Other [employer] [facility] Other 06-13-2023 11:30-0400Body mass index (BMI) [Ratio] 31.13 kg/q4Qhfoce Braun Other [facility] Other 06-13-2023 11:30-0400Body wfqwca68.18 kgShannandevin Clark Other [place] [employer] Other 06-13-2023 11:30-0400Diastolic blood efcsxbxc89 mm[Hg] Curt Clark Other [place] [employer] Other 06-13-2023 11:30-0400Systolic blood djruplub925 mm[Hg] Curt Clark Other [place] [employer] Other 05-10-2023 14:10-0400Body gyynic979.64 cmCurt Clark Work Phone: [id number]-Vfsqn [employer] [address] Work Phone: 1(737) 540-742105-10-2023 14:10-0400Body mass index (BMI) [Ratio] 31.15 kg/l7IiaploCurt Clark Work Phone: [id number]-Jyftb [employer] [address] Work Phone: 1(353) 132-833705-10-2023 14:10-0400Body surface area Derived from formula1.97 d7SahoxfCurt Clark Work Phone: [id number]-Trjhj [employer] DO Work Phone: 1(335) 383-796505-10-2023 14:10-0400Body omkbcb16.54 kgCurt Clark Work Phone: [id number]-Fxpho [employer] Work Phone: 1(268) 635-932405-10-2023 14:10-0400Diastolic blood dwvcmkoa03 mm[Hg] Curt Clark Work Phone: [phone]-Dwwcx [employer] 250 DO Work Phone: 1(702) 176-228305-10-2023 14:10-0400Heart rate68 /minCurt Clark Work Phone: mp428-6364AD-Usquh [employer] 250 DO Work Phone: 1(242) 198-985805-10-2023 14:10-0400Systolic blood dlbjgpma975 mm[Hg] Curt Clark Work Phone: mp038-9372LW-Cxojq [employer] 250 DO Work Phone: 1(543) 976-865805-02-2023 12:00-0400Body rnvarh550.37 cmCurt Clark Other [facility] Other 05-02-2023 12:00-0400Body mass index (BMI) [Ratio] 31.95 kg/e9MubrbjCurt Clark Other [employer] Other 05-02-2023 12:00-0400Body lccgce20.45 kgCurt Clark Other [employer] Other 05-02-2023 12:00-0400Diastolic blood whfvowht20 mm[Hg] Curt Clark Other [employer] Other 05-02-2023 12:00-0400Systolic blood kyqmurjj314 mm[Hg] Curt Clark Other [employer] Other 04-10-2023 11:06-560073.6 1Mjoselin Clark Work Phone: [phone]-Oaant [employer] 250 DO Work Phone: Comment on above:[id number] 10:37-0500Body cwopcsavszn00.8 [degF]MD Curt Clark Work Phone: [facility]02-28-2023 10:37-0500 Body ivkiyy96.2 kgMD Curt Clark Work Phone: [facility]02-28-2023 10:37-0500 Diastolic blood qhcypvej50 mm[Hg]MD Curt Clark Work Phone: [facility]02-28-2023 10:37-0500 Heart rate66 /minMD Curt Clark Work Phone: [facility]02-28-2023 10:37-0500 Respiratory rate16 /minMD Curt Clark Work Phone: [facility]02-28-2023 10:37-0500 SaO2% (BldA) [Mass fraction]97 %MD Curt Clark Work Phone: [facility]02-28-2023 10:37-0500 Systolic blood smamvbob922 mm[Hg]MD Curt Clark Work Phone: [facility]02-27-2023 11:11-0500 Blood Pressure LocationPatrick PARK [facility]02-27-2023 11:11-0500Diastolic blood opjupqoi87 mm[Hg]Tyree PARK [facility]02-27-2023 11:11-0500Heart rate80 /minPatrick PARK [facility]02-27-2023 11:11-0500Respiratory rate16 /minPatrick PARK [facility]02-27-2023 11:11-0500Systolic blood zdvfwitw215 mm[Hg]Tyree PARK [facility]02-08-2023 12:40-0500Body .37 cmAbdul Lopez Other [employer] Other [id number] 12:40-0500Body mass index (BMI) [Ratio] 31.53 kg/v1Kamls Lopez Other [employer] Other 541014-00-5480 12:40-0500Body qyfbstiieio59.5 [degF]Akin Lopez Other [employer] Other 736270-12-1456 12:40-0500Body eusklf56.27 kgAbdul Lopez Other [employer] Other 258242-04-5878 12:40-0500Diastolic blood jbsgpiwh38 mm[Hg] Akin Lopez Other [employer] Other 561034-54-6062 12:40-0500Respiratory rate18 /minAbdul Lopez Other [employer] Other 02-08-2023 12:40-0101UjU0% (BldA) [Mass fraction]98 % Akin Lopez Other [employer] Other 02-08-2023 12:40-0500Systolic blood ywjgtedt445 mm[Hg] Akin Lopez Other [employer] Other 01-26-2023 11:45-0500Body .37 cmShannancia Clark Other no[employer]strada [employer] Other 01-26-2023 11:45-0500Body mass index (BMI) [Ratio] 31.95 kg/g9TzpkxfCurt Clark Other [facility] [employer] Other 01-26-2023 11:45-0500Body .45 kgCurt Clark Other [facility] [employer] Other 01-26-2023 11:45-0500Diastolic blood mm[Hg] Curt Clark Other [place] [employer] Other 01-26-2023 11:45-7038VdH7% (BldA) [Mass fraction]96 % Curt Clark Other [place] [employer] Other 01-26-2023 11:45-0500Systolic blood zjwrbopz555 mm[Hg] Curt Clark Other [place] [employer] Other 08-30-2022 09:12-0400Body nohliv11.5 kgMD Curt Clark Work Phone: [phone]08-30-2022 08:58-0400 Body xxuuqt239.64 cmMD Curt Clark Work Phone: [phone]08-30-2022 08:58-0400 Body ovlymlqepug66.6 [degF]MD Curt Clark Work Phone: [facility]08-30-2022 08:58-0400 Diastolic blood wmpqzljo73 mm[Hg]MD Curt Clark Work Phone: [phone]08-30-2022 08:58-0400 Heart rate89 /minMD Curt Clark Work Phone: [facility]08-30-2022 08:58-0400 Respiratory rate18 /minMD Curt Clark Work Phone: [facility]08-30-2022 08:58-0400 SaO2% (BldA) [Mass fraction]97 %MD Curt Clark Work Phone: [facility]08-30-2022 08:58-0400 Systolic blood kqjvsucs313 mm[Hg]MD Curt Clark Work Phone: [facility]08-24-2022 10:20-0400 Body apuavg534.64 cmAbdul Lopez Other [employer] Other 08-24-2022 10:20-0400Body mass index (BMI) [Ratio] 30.24 kg/w0Kbwtx Lopez Other [employer] Other 08-24-2022 10:20-0400Body kymdbdalpxe25.7 [degF]Akin Lopez Other [employer] Other 08-24-2022 10:20-0400Body iffzzb33 kgAbdul Lopez Other [employer] Other 08-24-2022 10:20-0400Diastolic blood xvkfholn90 mm[Hg] Akin Lopez Other [employer] Other 08-24-2022 10:20-0400Respiratory rate18 /minAbdul Lopez Other [employer] Other 08-24-2022 10:20-1615PjL2% (BldA) [Mass fraction]98 % Akin Lopez Other [employer] Other 08-24-2022 10:20-0400Systolic blood nynieatu251 mm[Hg] Akin Lopez Other [employer] Other 08-03-2022 14:48-0400Body ukftle272.64 cmCurt Clark Work Phone: mp183-6825HB-Qqxrg [facility] 250 DO Work Phone: [phone]) 949-999908-03-2022 14:48-0400Body mass index (BMI) [Ratio] 30.18 kg/c6LpmbmiCurt Clark Work Phone: mp467-0823PR-Ryjqh [facility] 250 DO Work Phone: 1(581) 604-496308-03-2022 14:48-0400Body surface area Derived from formula1.94 l0QpdknpCurt Clark Work Phone: mp098-1875LO-Mrbjr [facility] 250 DO Work Phone: 1(536) 810-209208-03-2022 14:48-0400Body goqvsa97.82 kgCurt Clark Work Phone: mp426-9843ME-Stixl [facility] 250 DO Work Phone: 1(732) 468-344308-03-2022 14:48-0400Diastolic blood amfttujx06 mm[Hg] Curt Clark Work Phone: mp695-4971GU-Cxynm [facility] 250 DO Work Phone: 1(856) 209-179608-03-2022 14:48-0400Heart rate70 /minCurt Clark Work Phone: mp949-8224MI-Ibkfm [facility] 250 DO Work Phone: 1(711) 848-193508-03-2022 14:48-0400Systolic blood mm[Hg] Curt Clark Work Phone: mp182-3677MM-Botbc [facility] 250 DO Work Phone: 1(824) 279-737604-25-2022 10:57-0400Blood Pressure Katya PARK [facility] 04-25-2022 10:57-0400Diastolic blood vfoguxal09 mm[Hg] Tyree PARK [facility] 04-25-2022 10:57-0400Heart rate69 /minPadione PARK [facility] 04-25-2022 10:57-0400Systolic blood bdbmremh473 mm[Hg] Tyree PARK [facility] 03-03-2022 13:20-0500Body .64 cmAbdul Lopez Other [employer] Other 03-03-2022 13:20-0500Body mass index (BMI) [Ratio] 30.34 kg/f3Sllwo Lopez Other [employer] Other 03-03-2022 13:20-0500Body .28 kgAbdul Lopez Other [employer] Other 03-03-2022 13:20-0500Diastolic blood abmdauwp90 mm[Hg] Akin Lopez Other [employer] Other 03-03-2022 13:20-0500Respiratory rate18 /minAbdul Lopez Other [employer] Other 03-03-2022 13:20-3805BwB3% (BldA) [Mass fraction]99 % Akin Lopez Other [employer] Other 03-03-2022 13:20-0500Systolic blood bajjdvye010 mm[Hg] Akin Lopez Other [employer] Other 11-17-2021 11:40-0500Body .64 cmAbdul Lopez Other [employer] Other 11-17-2021 11:40-0500Body mass index (BMI) [Ratio] 31.12 kg/o0Whmil Lopez Other [employer] Other 11-17-2021 11:40-0500Body xwphebwozbw19.7 [degF]Akin Lopez Other [employer] Other 11-17-2021 11:40-0500Body uuupqk53.45 kgAbdul Lopez Other [employer] Other 11-17-2021 11:40-0500Diastolic blood ldytdvug34 mm[Hg] Akin Lopez Other [employer] Other 11-17-2021 11:40-0500Respiratory rate18 /minAbdul Lopez Other [employer] Other 11-17-2021 11:40-1503MnQ6% (BldA) [Mass fraction]96 % Akin Lopez Other [employer] Other 11-17-2021 11:40-0500Systolic blood monjfnkq154 mm[Hg] Akin Lopez Other [employer] Other 11-09-2021 10:38647773.4 1Mjoselin Patel Clark Work Phone: [phone]) [phone]-Pzrsc [facility] 250 DO Work Phone: Comment on above:VPNXP17-48-3070 14:44-0400Body height 167.64 cmCurt Clark Work Phone: mp361-8710GS-Hnmmu [facility] 250 DO Work Phone: 1(815) 261-439710-12-2021 14:44-0400Body mass index (BMI) [Ratio] 30.67 kg/n9NhqbunCurt Clark Work Phone: mp544-6280HA-Lokrc [facility] 250 DO Work Phone: 1(627) 731-496210-12-2021 14:44-0400Body surface area Derived from formula1.96 o3AatkpcCurt Clark Work Phone: mp098-0359UN-Zdbex [facility] 250 DO Work Phone: 1(655) 495-480110-12-2021 14:44-0400Body tlepit24.18 kgCurt Clark Work Phone: mp380-6477CU-Zgkhh [facility] 250 DO Work Phone: 1(597) 305-427710-12-2021 14:44-0400Diastolic blood uxczwygi46 mm[Hg] Curt Clark Work Phone: mp079-6424DB-Qhlra [facility] 250 DO Work Phone: 1(195) 716-896410-12-2021 14:44-0400Heart rate68 /minCurt Clark Work Phone: mp009-8024FF-Uvong [facility] 250 DO Work Phone: 1(449) 982-219210-12-2021 14:44-0400Systolic blood oitnneef156 mm[Hg] Curt Clark Work Phone: mp337-3874OT-Hzbee [facility] 250 DO Work Phone: Encounters Encounter DateEncounter TypeCare ProviderFacilityStart: 81-10-2228oveinvoeoj Tyree Rivers WATERSFacility:KENYA BellevueStart: 08-19-2025 End: 99-13-7011stqdowejxiHszjkm E Braun MD Work Phone: [facility] Work Phone: Start: 08-19-2025 End: 86-29-2543Rcgvjyf encounter procedureJunaidcain Dayan Choi II [facility] Ambulatory Work Phone: Start: 08-12-2025 End: 54-28-8610Drxdbbpe Result EncounterClaire Choi DO Work Phone: noms External Department UnsolicitedStart: 08-12-2025 End: 44-74-1334Petdsvil Result EncounterClaire Hanley Steph DO Work Phone: n[facility] External Department UnsolicitedStart: 08-12-2025 Registered RecurringClaire Choi II [facility] Acute Work Phone: Start: 75-01-1432kchjtkjsprEtvzzt E Braun [facility]art: 86-50-9609Pyo-patient / Non-visitCatherchica Mcmanus [facility] Work Phone: Start: 42-85-5714Cfj-patient / Non-visitPhillip Salazar [facility] Work Phone: Start: 05-24-2025 End: 56-06-2824Vizxtz outpatient visit 25 minutesElicia Rhodes MD Work Phone: [facility] on above:Persistent atrial fibrillation with RVR (Multi) (Primary Dx); Essential hypertension; Pulmonary hypertension (Multi); Mixed hyperlipidemia; Atrial flutter, unspecified type (Multi); Aortic valve regurgitation, nonrheumatic; manager terminal current use of anticoagulant therapy; Stage 3a chronic kidney disease (Multi); BMI 31.0-31.9,adult; Never smoked tobaccoStart: 05-24-2025 End: 55-61-0565ldvsiyliucOCSPNIUHiggins General Hospital AmbulatoryStart: 04-01-2025 End: 42-92-0217Vquioxfy Result EncounterClaire Choi DO Work Phone: noms External Department UnsolicitedStart: 04-01-2025 End: 60-99-3359Ficcsjvu Result EncounterClaire Hanley Steph RODRIGUEZ Work Phone: NOAK External Department UnsolicitedStart: 03-27-2025 End: 56-07-4200Rmlebt outpatient visit 10 minutesElicia Rhodes MD Work Phone: [facility] HospitalComment on above:Essential hypertension (Primary Dx); Persistent atrial fibrillation with RVR (Multi); Atrial flutter, unspecified type (Multi)Start: 03-27-2025 End: 32-15-4922klkqyfpbthFQMSOAUNYU [facility] AmbulatoryStart: 03-25-2025 End: 31-89-7909Xgsjfe Karli PETERSON Work Phone: ana BELLEVUEStart: 03-25-2025 End: 32-39-3198Fgofsuprince PETERSON Work Phone: ABF BELLEVUEStart: 03-25-2025 End: 43-33-7437Zmamcpq encounter procedureLia PETERSON Work Phone: ana ZOYAUEComment on above:Cerebellar infarct (CMS/HCC) (Primary Dx)Start: 03-25-2025 End: 31-46-9854ydwltxybgvUKJE HILLNot AvailableStart: 03-14-2025 End: 87-92-8389nrensxksrgWkuhgq E Braun MD Work Phone: [facility] Work Phone: Start: 03-14-2025 End: 49-39-1017Hqssldj encounter procedureCurt Clark MD Work Phone: [facility] Work Phone: Start: 02-26-2025 End: 18-77-1581Jlftskuzh to same day surgery centerCurt Clark MD Work Phone: [facility]-Electrodiagnostics Work Phone: Start: 02-26-2025 End: 38-11-0084uifpdwekjgEhytah E Braun MD Work Phone: [facility] Work Phone: Start: 02-19-2025 End: 62-38-3407ehensftjxnGWTLW [facility] AmbulatoryStart: 02-19-2025 End: 50-02-0393Iavoya outpatient visit 25 minutesDayton Osteopathic Hospitalboogie [facility] DIVISION SUPERINTENDENT-DIRECTOR OF CONTRACTS Work Phone: [facility] HospitalComment on above:Persistent atrial fibrillation with RVR (Multi) (Primary Dx); Typical atrial flutter (Multi); assisted current use of anticoagulant therapy; BMI 31.0-31.9,adultStart: 02-11-2025 End: 61-82-0230pxeuwfwpwuBdxupa E Braun MD Work Phone: [facility] Work Phone: Start: 02-11-2025 End: 22-76-2961Bzylydk encounter procedureCurt Clark MD Work Phone: [facility] Work Phone: Start: 02-11-2025 End: 88-81-9203Ttmhmw Braun MD Work Phone: [facility] Work Phone: Start: 14-45-4738Mxf-patient / Non-visitCurt Clark MD Work Phone: [facility] Work Phone: Start: 47-31-4499Ykorau Braun MD Work Phone: [facility] Work Phone: Start: 36-68-5146Dui-patient / Non-visitCurt Clark MD Work Phone: [facility] Work Phone: Start: 02-31-3702Tvkctz Braun MD Work Phone: [facility] GroupL[facility] Work Phone: Start: 07-02-3158Rka-patient / Non-visitCurt Clark MD Work Phone: [facility] GroupL[facility] Work Phone: Start: 65-99-6927Ejaewo Braun MD Work Phone: [facility] Work Phone: Start: 01-14-2025 End: 27-74-3083jnfkrmtgcnRbmrpru R WATERSFacility:EU BellevueStart: 01-14-2025 End: 54-94-4940Azlbgkz encounter procedureTyree PARK [facility] [place] start: 01-09-2025 End: 45-46-2781Pokhkztxbysr / ancillary services managementFlorida Medical CenterComment on above:ArrivedStart: 01-09-2025 End: 94-01-0315txfdynlywcKVDDJMHFairview Park Hospital AmbulatoryStart: 01-02-2025 End: 84-46-6509Uybvkubiq to same day surgery centerCurt Clark MD Work Phone: [facility]-Electrodiagnostics Work Phone: Start: 01-02-2025 End: 89-63-3841Rwdpod Braun MD Work Phone: [facility]-Electrodiagnostics Work Phone: Start: 01-02-2025 End: 15-79-6495soserejmqtFyozdb E Braun MD Work Phone: [facility] Work Phone: Start: 98-48-2209Twv-patient / Non-visitCurt Clark MD Work Phone: [facility] Physician [facility] Work Phone: Start: 74-81-4951Iwulwf Braun MD Work Phone: [facility] Phys[facility] Work Phone: Start: 12-26-2024 End: 10-50-1495nmfyyqqpjyYrcjor E Braun MD Work Phone: [facility] Work Phone: Start: 12-26-2024 End: 84-31-2262Bvruqsv encounter procedureCurt Clark MD Work Phone: [facility] Physician [facility] Work Phone: Start: 12-26-2024 End: 96-49-2339Pyxaqa Braun MD Work Phone: [facility] Physician [facility] Work Phone: Start: 12-25-2024 End: 04-40-1592mpqipsmrvyJatimu E Braun MD Work Phone: [facility] Work Phone: Start: 12-25-2024 End: 05-24-0958Pisynbt encounter procedureCurt Clark MD Work Phone: [facility] Phys[facility] Work Phone: Start: 12-25-2024 End: 54-58-9486Sgkwiy Braun MD Work Phone: [facility] Physician [facility] Work Phone: Start: 93-03-2377Fou-patient / Non-visitCurt Clark MD Work Phone: [facility] GroupBarberton Citizens [facility] Work Phone: Start: 54-46-5387Pxbxxl Braun MD Work Phone: [facility] Physician [facility] Work Phone: Start: 93-00-9457Tro-patient / Non-visitCurt Clark MD Work Phone: [facility] Physician [facility] Work Phone: Start: 00-54-2246Odsjgg Braun MD Work Phone: [facility] Physician [facility] Work Phone: Start: 49-34-5428Pug-patient / Non-visitCurt Clark MD Work Phone: [facility] GroupJefferson [facility] Work Phone: Start: 80-99-9234Jhukqn Braun MD Work Phone: [facility] Physician [facility] Work Phone: Start: 12-19-2024 End: 04-21-3569Llxuugzmgx and management of inpatientCurt Clark MD Work Phone: [facility] Work Phone: Start: 12-19-2024 End: 65-35-5770Xieyhs Braun MD Work Phone: [facility] Work Phone: Start: 50-73-0220Mezmgzbsdw RecurringCurt Clark MD Work Phone: [facility]-Cancer Center Acute Work Phone: Start: 51-58-1961Ohjkrq Braun MD Work Phone: [facility] Acute Work Phone: Start: 12-07-2024 End: 64-74-1898Xyoaoupswrxy / ancillary services managementShannandarci [facility] MichiganStart: 12-07-2024 End: 75-00-6624gbvcldvunvHXJJNXLPiedmont McDuffieStart: 11-28-2024 End: 83-74-1947dwttneoyrmRwhqap E Braun MD Work Phone: [facility] Work Phone: Start: 11-28-2024 End: 50-73-8732Pwysqum encounter procedureCurt Clark MD Work Phone: [facility] Work Phone: Start: 11-28-2024 End: 53-74-6758Ygjxbv Braun MD Work Phone: [facility] Work Phone: Start: 27-32-2344Bax-patient / Non-visitCurt Clark MD Work Phone: [facility] Work Phone: Start: 23-31-4931Dcwzox Braun MD Work Phone: [facility] Work Phone: Start: 04-99-0023Qsb-patient / Non-visitCurt Clark MD Work Phone: [facility] Physician [facility] Work Phone: Start: 10-79-6199Fmkpin Braun MD Work Phone: [facility] Work Phone: Start: 80-05-8443Eua-patient / Non-visitCurt Clark MD Work Phone: [facility] GroupLincoln Hospital Professional Co Work Phone: Start: 64-35-4733Lievzl Braun MD Work Phone: [facility] Work Phone: Start: 42-49-2776Fyx-patient / Non-visitCurt Clark MD Work Phone: [facility] Work Phone: Start: 45-32-2641Trrfwe Braun MD Work Phone: [facility] Physician [facility] Work Phone: Start: 34-14-3613Rfdsje Braun MD Work Phone: [facility] GroupMagruder Memorial Hospital OutPt Work Phone: Start: 17-74-5867Iez-patient / Non-visitCurt Clark MD Work Phone: [facility] Physician [facility] Work Phone: Start: 44-89-4345Kqazty Braun MD Work Phone: [facility] Physician [facility] Work Phone: Start: 11-01-2024 End: 86-98-5528Ppfics outpatient visit 25 minutesWihilaria Rhodes MD Work Phone: [facility] HospitalComment on above:Persistent atrial fibrillation with RVR (Multi) (Primary Dx); Pulmonary hypertension (Multi); Mixed hyperlipidemia; Ascending aorta dilation (CMS-HCC); Essential hypertension; Stage 3a chronic kidney disease (Multi); Shortness of breath at rest; Gastrointestinal hemorrhage, unspecified gastrointestinal hemorrhage type; BMI 32.0-32.9,adult; Never smoked tobaccoStart: 11-01-2024 End: 14-20-5187rwjahoaltaHJGFUIWHiggins General Hospital AmbulatoryStart: 10-30-2024 End: 68-49-2354Rkbfbxc encounter procedureCurt Clark MD Work Phone: [facility] Physician GroupBarberton [facility] Work Phone: Start: 10-30-2024 End: 93-43-6780Ehkkmr Braun MD Work Phone: [facility] Physician [facility] Work Phone: Start: 96-61-8295Stx-patient / Non-visitCurt Clark MD Work Phone: [facility] Physician [facility] Work Phone: Start: 49-33-6486Udftfg Braun MD Work Phone: [facility] Physician [facility] Work Phone: Start: 10-23-2024 End: 48-75-0912Dqzivplgs encounterLauren Venia CMAProMedica Physicians [facility] SurgeryStart: 10-22-2024 End: 38-46-1628Ozkroo OnlyNot In System Ref ProvProMedica Physicians General SurgeryStart: 80-37-9347Qnu-patient / Non-visitCurt Clark MD Work Phone: [facility] Physician [facility] Work Phone: Start: 66-60-1166Yoblze Braun MD Work Phone: [facility] Physician [facility] Work Phone: Start: 86-14-3001Vrw-patient / Non-visitCurt Clark MD Work Phone: [facility] Physician [facility] Work Phone: Start: 65-23-5055Jkraiq Braun MD Work Phone: [facility] Physician [facility] Work Phone: Start: 10-12-2024 End: 55-80-9604zfpupimhjgHkpfuzn E GrillisFacility:[facility] Hospitaltart: 10-12-2024 End: 15-54-8409Tipwvlfa ReferredCurt Clark MD Work Phone: [facility]-LAB Path Spec [place] HospStart: 03-78-5440Kvr-patient / Non-visitCurt Clark MD Work Phone: [facility] Physician GroupBarberton Citizens Hospital Work Phone: Start: 10-12-2024 End: 12-67-3414Iuopei Braun MD Work Phone: [facility]-LAB Path Spec [place] HospStart: 74-76-5860Oxj-patient / Non-visitCurt Clark MD Work Phone: [facility] Physician [facility] Work Phone: Start: 94-78-1373Ubloqi Braun MD Work Phone: [facility] Professional [facility] Work Phone: Start: 10-10-2024 End: 99-77-9664Kwz-patient / Non-visitCurt Clark MD Work Phone: [facility] Work Phone: Start: 10-10-2024 End: 25-76-8794Vqagec Braun MD Work Phone: [facility] Work Phone: Start: 68-82-9430Unt-patient / Non-visitCurt Clark MD Work Phone: [facility] Work Phone: Start: 09-51-3378Uyplxk Braun MD Work Phone: [facility] Professional [facility] Work Phone: Start: 29-33-6168Uvc-patient / Non-visitMD Curt Clark Work Phone: [facility] Work Phone: Start: 54-55-1255Cnv-patient / Non-visitMD Curt Clark Work Phone: [facility] Work Phone: Start: 09-18-2024 End: 47-83-3820kdjpellrwfOrojdm PopescuFacility:[facility] Hospitaltart: 09-18-2024 End: 29-62-2396Rjycnetajk and management of inpatientMD Curt Clark Work Phone: [facility] [place] [facility] Work Phone: Start: 09-18-2024 End: 53-10-5202xkjxbnupldd encounterMD Curt Clark Work Phone: [facility] Work Phone: Start: 77-37-4514Syf-patient / Non-visitCurt Clark MD Work Phone: [facility] ER Work Phone: Start: 50-09-6268Pxo-patient / Non-visitMD Curt Clark Work Phone: [facility] Work Phone: Start: 09-14-2024 End: 89-00-9155Fuwwyosdq Result EncounterMatthemanoj PETERSON Work Phone: noms External Department UnsolicitedStart: 09-14-2024 End: 98-58-5683Jrrjqryqd Result EncounterMatthemanoj PETERSON Work Phone: noms External Department UnsolicitedStart: 08-20-2024 End: 09-11-8025sdwyydlobaPO Cutr Clark Work Phone: [facility] Work Phone: Start: 08-20-2024 End: 53-33-0080Lgawwij encounter procedureMD Curt Clark Work Phone: [facility] Work Phone: Start: 60-65-4011Yrt-patient / Non-visitMD Curt Clark Work Phone: [facility] Work Phone: Start: 08-17-2024 End: 04-18-5064mqkbgxzuorPD Curt Clark Work Phone: [facility] Work Phone: Start: 08-17-2024 End: 07-51-5227Ywdlkzf encounter procedureMD Curt Clark Work Phone: [facility] Work Phone: Start: 08-01-2024 End: 80-78-2522Tccljoqg Result EncounterTimcain Mopartha DO Work Phone: noms External Department UnsolicitedStart: 08-01-2024 End: 29-91-7567Clbscpcq Result EncounterTimcain Mopartha DO Work Phone: noms External Department UnsolicitedStart: 08-01-2024 Registered RecurringMD Curt Clark Work Phone: [facility] Work Phone: Start: 07-05-2024 End: 24-56-1635flpbhnnsbxCE Marcia E Braun Work Phone: [facility] Work Phone: Start: 07-05-2024 End: 34-62-7736Oewxnzl encounter procedureMD Curt Clark Work Phone: [facility] Work Phone: Start: 95-21-2279Wjd-patient / Non-visitMD Curt Clark Work Phone: [facility] Work Phone: Start: 85-60-8653Znaviwasyq RecurringMD Curt Clark Work Phone: [facility] Work Phone: Start: 05-31-2024 End: 10-20-0123arkbzapzxaHG Marcia E Braun Work Phone: [facility] Work Phone: Start: 05-31-2024 End: 43-34-5991Kwzypvd encounter procedureMD Curt Clark Work Phone: [facility] Work Phone: Start: 07-03-7787Xgn-patient / Non-visitMD Curt Clark Work Phone: [facility] Work Phone: Start: 11-46-0288Ldhvubnmed RecurringMD Curt Clark Work Phone: [facility] Work Phone: Start: 04-17-2024 End: 32-68-3373Ckfwzd outpatient visit 25 minutesMohilaria Rhodes MD Work Phone: [facility] on above:Essential hypertension (Primary Dx); Persistent atrial fibrillation with RVR (Multi); Aortic valve regurgitation, nonrheumatic; Ascending aorta dilation (CMS-HCC); Mixed hyperlipidemia; Pulmonary hypertension (Multi); Stage 3a chronic kidney disease (Multi); Multiple myeloma, remission status unspecified (Multi); Shortness of breath at rest; BMI 34.0-34.9,adult; Never smoked tobaccoStart: 04-12-2024 End: 00-83-9711Zregpnin ReferredMD Curt Clark Work Phone: [facility] Main [place] Work Phone: Start: 04-12-2024 End: 08-49-7822vgvcxdtmkbJQ Curt Clark Work Phone: [facility] Work Phone: Start: 04-12-2024 End: 34-26-9505Oavqykv encounter procedureMD Curt Clark Work Phone: [facility] Work Phone: Start: 90-29-3776Cpwgkapitm RecurringMD Curt Clark Work Phone: [facility] Work Phone: Start: 61-05-2925Kwi-patient / Non-visitMD Curt Clark Work Phone: [facility] Work Phone: Start: 01-27-2024 End: 01-56-5260gfznygtwqnHH Curt Clark Work Phone: [facility] Work Phone: Start: 01-27-2024 End: 12-34-1102Zekwtxx encounter procedureMD Curt Clark Work Phone: [facility]ician [facility] Work Phone: Start: 02-25-0894Uitolocnvw RecurringMD Curt Clark Work Phone: [facility] Work Phone: Start: 01-04-2024 End: 56-57-9126fpslfubvdpBP Curt Clark Work Phone: [facility] Work Phone: Start: 01-04-2024 End: 45-10-3623Ljeexns encounter procedureMD Curt Clark Work Phone: [facility] Work Phone: Start: 03-52-0058Grc-patient / Non-visitMD Curt Clark Work Phone: [facility] Work Phone: Start: 64-00-6508Ldlbjkdkox RecurringMD Curt Clark Work Phone: [facility] Work Phone: Start: 12-02-2023 End: 51-16-0076qetxisagupHandnz Braun Other [facility] T[facility] Other Start: 14-20-3400Ctuecuqfy encounterCurt ClarkUniversity Hospitals Samaritan Medical Centertart: 12-01-2023 End: 65-15-0182nlhoqwbrbfLsmdfg Braun Other [employer] Other Start: 44-41-1091Pirkwr outpatient visit 25 minutes Curt Salmeron [facility] ClinicStart: 12-01-2023 End: 26-55-5932Gwnjtdb encounter procedureMD Curt Clark Work Phone: [facility]-Start: 11-02-2023 End: 78-65-7012Wpqnwxnami hospital visit by physicianJodi Bell Echo/Vasc Room 2[facility] HospitalCom[facility] on above:Aortic valve regurgitation, nonrheumatic; Ascending aorta dilation (CMS/HCC); Pulmonary hypertension (CMS/HCC)Start: 11-02-2023 End: 87-36-3235czsmvajkhnKYCYRDDMiami Valley Hospitaltart: 10-17-2023 End: 47-59-4922xmzpxlvuuyLvspvg Braun Other [employer] Other Start: 01-02-8586Clhfzpuez encounterMardevin Salmeron [facility] HealthCaretart: 10-13-2023 End: 20-66-8662hxoaxclgwbMsfpoc Braun Other [employer] Other Start: 06-67-7777Cigctthtj encounterMardevin Arnett [facility] Hospitaltart: 10-04-2023 End: 95-24-2405Bniirg outpatient visit 25 minutesElicia Rhodes MD Work Phone: [facility] on above:Persistent atrial fibrillation with RVR (CMS/HCC) (Primary Dx); Aortic valve regurgitation, nonrheumatic; Ascending aorta dilation (CMS/HCC); Essential hypertension; Pulmonary hypertension (CMS/HCC); Stage 3a chronic kidney disease (CMS/HCC)Start: 09-26-2023 End: 80-86-9260jcygekbmhiDhjgps Braun Other [employer] Other Start: 54-47-9004Veixor outpatient visit 15 minutes Curt Arnett Jaron [facility] ClinicStart: 09-13-2023 End: 60-10-7095adukrbskljKnxjwo Braun Other [facility] Qu[facility] Other Start: 20-78-5404Kqtllu outpatient visit 15 minutes Curt [facility]nett [facility] ClinicStart: 83-08-1008Snsyfn outpatient new 45 minutesRobert Jim IIFPG [place] OrthopedicsStart: 08-31-2023 End: 92-57-7859hqfiuvamcuNL Marcia E Braun Work Phone: [facility] Work Phone: Start: 08-31-2023 End: 56-74-9549Dzkugmy encounter procedureMD Curt Clark Work Phone: [facility]-X[facility] [place] [facility] Start: 62-83-6681Ny RenewalCurt Clrak Work Phone: [phone]-Vlwww [facility] 250 DO Work Phone: Start: 07-19-2023 End: 69-82-4666trrqhajfbsEE Curt Clark Work Phone: [facility] Work Phone: Start: 07-19-2023 End: 90-24-8943Hyaspbqipb RecurringMD Curt Clark Work Phone: [facility]-Cancer [facility] Work Phone: Start: 09-66-9470Qlsoxdbjuw RecurringMD Curt Clark Work Phone: [facility]-Cancer [facility] Work Phone: Start: 07-15-2023 End: 94-14-6924drsyaflsgqXjfaeb Braun Other [facility] Other Start: 37-24-5376Fnhtcfkor encounterCurt Arnett [facility] ClinicStart: 07-08-2023 End: 65-81-0643tleeanupjuZwowvh Braun Other [employer] Other Start: 88-14-4140Pfsectpog encounterMarcijoni ClarkUniversity Hospitals Samaritan Medical Centertart: 23-12-5993Og RenewalCurt Clark Work Phone: [phone]-BmfgwEssentia Health 250 DO Work Phone: Start: 06-27-2023 End: 83-04-9896fxeuobonnlXwyojp Braun Other [employer] Other Start: 81-18-7792Qrltbdcmb encounterMarcijoni ClarkUniversity Hospitals Samaritan Medical Centertart: 06-24-2023 End: 29-14-0324jdiuntaliqQderza Braun Other [facility] Other Start: 47-54-9775Sowrke outpatient visit 25 minutes Curtyonas ClarkHocking Valley Community Hospital ClinicStart: 06-23-2023 End: 93-17-9751vmiqmhzkmqCyswn Lopez Other [facility] [employer] Other Start: 97-26-2222Zmmkna outpatient visit 15 minutes Akin QadirFPG NephrologyStart: 06-20-2023 End: 77-80-1882fwrznpzpszTtknih Braun Other [facility] [employer] Other Start: 91-83-8412Yirbunjps encounterMarcia AmberHocking Valley Community Hospital ClinicStart: 94-58-0546Hg RenewalCurt Clark Work Phone: [phone]-GbcicEssentia Health 250 DO Work Phone: Start: 05-04-2023 End: 79-43-3853hhhohdhtnjJkfhhg Braun Other [employer] Other start: 17-65-4383Dcnxixgwd encounterCurt Salmeron Medical ClinicStart: 04-26-2023 End: 77-30-2884qiflcgrvwbQfcxvm Braun Other [employer] Other Start: 85-25-4202Dgbahn outpatient visit 25 minutes Curt Salmeron Medical ClinicStart: 42-48-3154Maygvv outpatient visit 25 minutesCurt Clark Work Phone: [phone]-Uyjuf [facility] 250 DO Work Phone: Start: 67-70-9072hrduizdpohTaBritt Clark Facility:[id number]: 01-93-8769Wrwaxswsk encounterShannandevin Salmeron Medical ClinicStart: 03-16-2023 End: 25-04-3278zcqdpodzikYO [place]T [place] Other Start: 03-15-2023 End: 34-62-4286ersltaciutQemzhh Braun Other [facility] [employer] Other Start: 76-80-6943Rufqly outpatient visit 15 minutes Curt Salmeron Medical ClinicStart: 02-21-2023 End: 42-14-6237wrnvthnjdpJE MOURHAF TRABOULSSIFacility:C5Kitgi: 01-11-2023 End: 76-31-1398mivzbeysmiJQ Marcia E Braun Work Phone: [facility] Work Phone: Start: 01-11-2023 End: 14-95-4407Atsrdruuqo RecurringMD Curt Clark Work Phone: [facility] Work Phone: Start: 01-10-2023 End: 98-66-3222Nannxcp encounter procedurePatrick Tita PARK [facility] start: 01-06-2023 End: 84-29-6356rztvhllgawWS MARCIA E BRAUNFacility:Z6Zlgde: 12-22-2022 End: 91-00-7025awzbiavmunJtaiu Lopez Other [facility] [employer] Other Start: 52-51-6860Wbkecq outpatient visit 25 minutes Akin QadirFPG NephrologyStart: 12-14-2022 End: 93-29-5515knqdenytxpTVWUR QADIRFacility:Z4Qhaob: 12-09-2022 End: 26-21-0306kmiwrchqavGlimjz Braun Other [place] [employer] Other Start: 43-92-4575Rcofhv outpatient visit 25 minutes Curt Arnett [facility] Hospitaltart: 99-16-5906zvvvhmbluoJU CURT CLARK Facility:V8Jovjm: 07-13-2022 End: 23-69-8614Hfdtkkywuj RecurringMD Curt Clark Work Phone: [facility] CenterStart: 07-12-2022 End: 86-14-3928ttswvetznfTWBSNQD J ADAMOWICZFacility:D6Rwzrx: 07-07-2022 End: 48-97-6611ivergpobrnYcbgb Lopez Other [place] [employer] Other Start: 13-12-5160Uwquct outpatient visit 25 minutes Akin QadirFPG NephrologyStart: 06-30-2022 End: 16-54-2771umqspyqsymESFHT QADIRFacility:O7Yssng: 38-01-7960Tdgwft outpatient visit 25 minutesCurt Clark Work Phone: [phone]-AaoqoLake [facility] 250 DO Work Phone: Start: 79-15-5491jcqgnsowpsAa. Mourhaf Traboulssi Facility:[id number]: 05-28-2022 End: 65-91-7164hedcoyuposRB CURT E AMBERFacility:H9Clfya: 05-25-2022 End: 01-51-2766fktkvahlksDF CURT E AMBERFacility:E3Viexh: 05-21-2022 End: 40-26-2112zergzkxpkcXB CURT E BRAUNFacility:F1Kxhdg: 04-14-2022 End: 35-97-0033semonftupcXU CURT E BRAUNFacility:O8Kkeug: 04-07-2022 End: 11-31-0088orjwocuwhlTTCQU CALLISONFacility:T3Yrrck: 03-08-2022 End: 12-54-4924Jsoevci encounter procedurePatricmalka PARK [facility] start: 23-94-9853Th Valorie Clark Work Phone: [phone]-Cdlhg [employer] 250 DO Work Phone: Start: 02-23-2022 End: 14-30-9946hwebmklxrbPyvyq Lopez Other [employer] Other Start: 79-42-9594Skpzwairg encounterAbdul QadirFPG NephrologyStart: 01-14-2022 End: 03-13-9027fljalhrxmzMjnbj Lopez Other [employer] Other Start: 15-21-6605Sdeclk outpatient visit 25 minutes Akin QadirFPG Nephrology ClydeStart: 33-27-7401Yj Valorie Clark Work Phone: [phone]-Jbjqj [employer] 250 DO Work Phone: Start: 09-30-2021 End: 47-82-9466fkkycnnwsxEvpxj Lopez Other [employer] Other Start: 27-62-7775Nthkmb outpatient visit 25 minutes Akin AldaPG NephrologyStart: 41-83-9497Hefhgoeho encounterAbdjames QadirFPG NephrologyStart: 73-60-6826Qvkdnf outpatient visit 25 minutesCurt Clark Work Phone: [phone]) [phone]-Iypur [facility] 250 DO Work Phone: Start: 07-02-2021 End: 72-71-3088sosdevklkpHokvdt [place] Other [facility] [employer] Other Start: 43-29-5521Hnguykdvp encounterEncompass Health Rehabilitation Hospital Of East Valleydra Ayon [facility] Procedures DateProcedureProcedure DetailPerforming ClinicianStart: 28-35-3583Wowhkfea blood count with white cell differential, automatedClaire Choi DO Work Phone: Start: 04-61-0101Kkiaiepvmhmje metabolic panelClaire Choi DO Work Phone: Start: 09-96-0143Ceeyh immunofixationCurt Clark MD Work Phone: Comment on above:Presence of monoclonal protein is unclear at this time. Suggestrepeat in 3 to 6 months if clinically indicated. Start: 38-59-5576Y-ray skeletal surveyCurt Clark MD Work Phone: Start: 44-00-8761Mvs routine ecg w/least 12 lds w/i&r Elicia Rhodes MD Work Phone: Start: 58-00-5388Lkefwaga blood count with white cell differential, automatedClaire Choi DO Work Phone: Start: 52-85-7366Calhgqznzpkag metabolic panelClaire Choi DO Work Phone: Start: 88-91-6679Noh routine ecg w/least 12 lds w/i&r Elicia Rhodes MD Work Phone: Start: 87-97-1615Wds routine ecg w/least 12 lds w/i&r Jerrica Ace Overton DIVISION SUPERINTENDENT-DIRECTOR OF CONTRACTS Work Phone: Start: 12-19-2024 End: 50-10-7473Djkjy nucleic acid assayCurt Clark MD Work Phone: Start: 01-67-5363Iurbp chest X-rayCurt Clark MD Work Phone: Start: 07-40-8048KHQUJHOZ LABSNot In System Ref Prov Start: 46-48-7058Dkned i surg pathology gross examination onlyNot In System Ref ProvStart: 67-53-0331FJ of head without contrastMD Curt Clark Work Phone: Start: 81-79-5954Givlq chest X-rayMD Curt Clark Work Phone: Start: 06-57-8800Pbmrgdge identified in Urine by CultureMavictor manuel PETERSON Work Phone: Start: 28-96-4605Oinnldae blood count with white cell differential, automatedTimcain Choi DO Work Phone: Start: 92-49-3018Qsmmopitvzbzj metabolic panelClaire Choi DO Work Phone: Start: 91-75-5642Iksps cultureMD Curt Clark Work Phone: Start: 67-43-1878QLVGLYYUFJTRN ECHO (TTE) COMPLETE ELICIA VALENZUELAIStart: 39-27-7639Bmsa tthrc r-t 2d w/wom-mode compl spec&colr Richard Rhodes MD Work Phone: Start: 94-77-8733Rry routine ecg w/least 12 lds w/i&r Elicia Rhodes MD Work Phone: Start: 24-41-5222Lhsvegcrltfyc US Izzy Clark MD Work Phone: Start: 02-36-9951Eyoxtwtj identified in Urine by CultureMD Curt Clark Work Phone: Start: 99-13-6844Zmbga cultureMD Curt Clark Work Phone: Start: 18-90-2690Imuqac Braun MD Work Phone: Start: 73-68-8642KpvacmayfhuKysmvmw XAVIER Start: 92-32-9139Wqjhhbdh identified in Urine by CultureMD Curt Clark Work Phone: Start: 74-79-6968Kpnvz cultureMD Curt Clark Work Phone: Start: 99-01-7678Dhlcxc Braun MD Work Phone: Start: 39-28-4227Mqqvjojpyypuig shockwave lithotripsy of calculus of kidneyPatrick PARK Start: 73-92-2331YoesfwcucstsggduBrfzo: 80-98-4169QX of brain without contrastMD Curt Clark Work Phone: Start: 51-13-9692Fqagfwpdmklpww shockwave lithotripsy of calculus of kidneyPatrick PARK Start: 51-49-5228Adzrhnpqyzwcos shockwave lithotripsy of calculus of kidneyPatrick PARK Start: 89-32-3367Yqgbkzfb Extraction with IOL placement - OS.Tyree PARK Start: 90-70-0061Qvtiblimsrn removal of ureteric stent Tyree PARK Start: 55-03-6632Ffpfykjvpa and retrograde pyelography Tyree PARK Start: 20-28-1789Ckfxi colonoscopyCurt Clark Work Phone: Cataract surgeryCurt Clark Work Phone: CholecystectomyPatrick PARK Excision of ganglion of wristPatrick PARK HemorrhoidectomyCurt Clark Work Phone: HemorrhoidectomyPatrick XAVIER HysterectomyCurt Clark Work Phone: HysterectomyPatrick XAVIER LithotripsyCurt Clark Work Phone: Operative procedure on footMarnicolea Amanda Clark Work Phone: Urine cultureMD Curt Clark Work Phone: Plan of Treatment DateCare ActivityDetailAuthorStart: 01-01-2026 End: 60-03-2947Rdkrumi encounter kfqkywwcx10/18/2026 3:30 PM EST Office Visit [address] [address] Elicia Rhodes MD [address] [place] [address] [address] [place] [address] [facility]: 66-51-6235UbxrqftdxhesligiKgdpmvvtavrkwm [facility]: 69-22-4251Clwdeuub screeningDiabetes: Retinopathy ScreeningOhioHealth Mansfield Hospital: 44-46-0326Hwiscyfjk vaccinationOhioHealth Mansfield Hospital: 05-15-2025 End: 73-27-5893Wivoeil encounter kxkqdcnio42/02/2025 2:40 PM EDT Office Visit [address] [place] [address] Elicia Rhodes MD 3 [facility] 2, [address] [place] [address] [facility]: 04-15-2025 End: 21-71-3197Jeadqyi encounter /02/2025 11:10 AM EDT Office Visit [address] [id number] Elicia Rhodes MD [address] [facility] [address], [address] [place] [address] [facility]: 03-25-2025 End: 80-78-7096Pgjgiqz encounter yxvxpfkel54/12/2025 1:40 PM EDT Office Visit NAZ KO [address] [place] [address] Lia Velazco PA [address] [place] [address] Aleks KOComment on above:ArrivedStart: 03-05-2025 End: 92-11-3530NGJ 12 LeadECG 12 Lead ECG Routine Typical atrial flutter (Multi) Expected: 03/05/2025 (Approximate), Expires:02/19/2026[facility] Work Phone: Comment on above:Expected: 03/05/2025 (Approximate), Expires: 02/19/2026Start: 61-31-0385FlghkbycnTrumbull Memorial Hospitaltart: 18-82-9987IctyutbgaTrumbull Memorial Hospitaltart: 02-19-2025 End: 51-82-9465Beuemlvkcoxfz ExternalCardioversion External Cardiac Services Routine Typical atrial flutter (Multi) assisted current use of anticoagulant therapy Expected: 02/19/2025 (Approximate), Expires: 02/19/2027[facility] Service Area Work Phone: Comment on above:Expected: 02/19/2025 (Approximate), Expires: 02/19/2027Start: 27-22-2736KixhacrrwTrumbull Memorial Hospitaltart: 26-40-1530PjhwczbazTrumbull Memorial Hospitaltart: 33-88-4192Eyjbgxpe admission [facility] Hospitaltart: 37-40-3646Egbbeiiu to thermograph operator [facility] Hospitaltart: 81-20-8605CyvoivibxTrumbull Memorial Hospitaltart: 11-20-2024 End: 26-35-4231Ewcehsp encounter procedureNOMS Critical access hospital: 11-08-2024 Glaucoma screeningDiabetes: Retinopathy ScreeningOhioHealth Mansfield Hospital: 10-15-2024 End: 62-71-3163Sfhofch encounter otevrlczt16/02/2024 11:20 AM EST Office Visit [place] [address] [facility] [address] [place] [address] Elicia Rhodes MD [address] [facility] [address] [place] [address] [facility]: 03-02-1518AyvmnvwjpTrumbull Memorial Hospitaltart: 33-10-4382Xowonrigmeooas of prophylactic treatment [facility] Hospitaltart: 09-19-2024 End: 70-55-8046Nsgnehs encounter gabbfwuhi44/06/2024 9:40 AM EST Office Visit [facility] [address] [place] [phone] Meri Duque NP [address] [place] [address] [facility]: 09-18-2024 End: 01-14-7671Uuwnssef to rehabilitation physicianTrumbull Memorial Hospitaltart: 09-18-2024 End: 13-58-8629DhogcjqslTrumbull Memorial Hospitaltart: 05-71-5743Soosmqkk therapy procedureTrumbull Memorial Hospitaltart: 10-58-3519Vydlqhbm to occupational therapistTrumbull Memorial Hospitaltart: 09-18-2024 End: 43-07-2057ElgcvnmdyTrumbull Memorial Hospitaltart: 46-12-2487Jdxafpuy admissionTrumbull Memorial Hospitaltart: 96-02-1383Dtfruqgan [facility]: 04-17-2024 End: 11-11-2064Cmglk 1996 panel - Serum or PlasmaLipid Panel Lab Routine Mixed hyperlipidemia Expected: 04/17/2024 (Approximate), Expires: 04/17/2025[facility] Service Area Work Phone: Comment on above:Expected: 04/17/2024 (Approximate), Expires: 04/17/2025Start: 04-17-2024 End: 61-87-4490Ghakxqa encounter zxspbaiap18/04/2024 1:40 PM EDT Office Visit [facility] [address] [facility] [address] [place] [address] Elicia Rhodes MD [address] [facility] [address] [place] [address] [facility] HospitalStart: 25-70-0872Ubgzbwvr identified in Urine by CultureTrumbull Memorial Hospitaltart: 61-75-0004Emhawqjd identified in Urine by CultureTrumbull Memorial Hospitaltart: 61-34-2991Ejkbefqu screeningDiabetes: Retinopathy ScreeningAvita Health System Bucy[facility] HospitalStart: 11-02-2023 End: 39-27-8721Ljgwyfw encounter yrvurwota63/20/2023 10:45 AM EST Appointment [facility] [address] [facility] [address] [place] [address] [facility] HospitalStart: 62-54-5100FES, Provider: Elicia Rhodes, Status: Pen, Time: 2:10 PMFUV, Provider: Elicia Rhodes, Status: Pen, Time: 2:10 [facility] 250 DO Work Phone: Start: 10-04-2023 End: 23-29-5596VT Heart TransthoracicTransthoracic Echo (TTE) Complete Echocardiography Routine Aortic valve regurgitation, nonrheumaticAscending aorta dilation (CMS/HCC) Pulmonary hypertension (CMS/HCC) Expected: 10/04/2023 (Approximate), Expires: 10/04/2025[facility] Service Area Work Phone: Comment on above:Expected: 10/04/2023 (Approximate), Expires: 10/04/2025Start: 07-63-2608PjmzcedltTrumbull Memorial Hospitaltart: 05-41-7981Qwvlzuvpq vaccinationInfluenza Vaccine (#1)[facility] HospitalStart: 27-77-2048JHP, Provider: Elicia Rhodes, Status: Pen, Time: 2:20 PMFUV, Provider: Elicia Rhodes, Status: Pen, Time: 2:20 PMMP-[facility] 250 DO Work Phone: Start: 52-41-8394AcfcnafykOhio State [facility] Hospital Start: 11-57-7049NgexesjdgTrumbull Memorial Hospitaltart: 08-17-2022 End: 20-15-1376ObudvdletTrumbull Memorial Hospitaltart: 06-51-1688PunczzsvbTrumbull Memorial Hospitaltart: 03-92-3216VennjuwbcTrumbull Memorial Hospitaltart: 15-37-0262RwfpmqpcyTrumbull Memorial Hospitaltart: 45-16-8315QuezddqtwTrumbull Memorial Hospitaltart: 38-41-6898UGD, Provider: Elicia Rhodes, Status: Pen, Time: 2:20 PMMP-[facility]-[place] 250 DO Work Phone: Start: 96-53-9785YyqzuhkmyOhio State East Hospital Start: 45-13-0477HmsnxbfyuParkview Health Montpelier Hospital CenterStart: 28-70-8028UueaakxkjParkview Health Montpelier Hospital CenterStart: 52-32-0176NaserrwqdTrumbull Memorial Hospitaltart: 01-18-2022 End: 37-97-0142QjfpyckjzParkview Health Montpelier Hospital CenterStart: 75-73-6378KhzyubcqwParkview Health Montpelier Hospital CenterStart: 87-12-6993TgokqdgnlParkview Health Montpelier Hospital CenterStart: 82-52-3762SyvdrtrxrParkview Health Montpelier Hospital CenterStart: 77-98-0382TjmjvbonuParkview Health Montpelier Hospital CenterStart: 95-87-5123SzdleqcdrParkview Health Montpelier Hospital CenterStart: 20-17-0304WcgzoezekParkview Health Montpelier Hospital CenterStart: 86-18-0005UynnsurpsParkview Health Montpelier Hospital CenterStart: 63-52-2127BfztfcyocParkview Health Montpelier Hospital CenterStart: 27-12-1157TojaliwanParkview Health Montpelier Hospital CenterStart: 79-58-6347OtmdjurlqTrumbull Memorial Hospitaltart: 58-65-3472Rwhrwmffe [facility] CenterStart: 68-98-0970Yaaewygxg [facility] CenterStart: 07-09-2021 End: 13-27-0034Rjzzzsqvw [facility] CenterStart: 28-49-3853FvksupbunParkview Health Montpelier Hospital CenterStart: 05-19-2021 End: 88-28-6573Kkasatgpj [facility] CenterStart: 32-02-4688Qsagtaonh [facility] CenterStart: 85-46-9824Iwmpjauhm [facility] CenterStart: 56-71-4781Gcbvvlldi [facility] CenterStart: 73-14-5374Gmgxbpzes [facility] CenterStart: 59-41-3360TuydrpkenParkview Health Montpelier Hospital CenterStart: 01-12-2021 End: 28-62-3727Uitrxeoas [facility] CenterStart: 57-42-0224Fgopdzfoc [facility] CenterStart: 22-20-3557Gtynkhiby [facility] CenterStart: 37-44-7817Qnxybnegg [facility] CenterStart: 80-89-4964FnlzrzbhuParkview Health Montpelier Hospital CenterStart: 73-05-0884JksgpabtzParkview Health Montpelier Hospital CenterStart: 23-08-1254Ctvezrwtn [facility] CenterStart: 90-15-8627OergaceyfParkview Health Montpelier Hospital CenterStart: 83-78-1731BcfixgwvwParkview Health Montpelier Hospital CenterStart: 91-18-1854Aontjkyzk [facility] CenterStart: 07-11-0273Albuthpvf [facility] CenterStart: 25-14-1090Bsgyujrpx [facility] CenterStart: 49-21-6744Smigyckko [facility] CenterStart: 41-63-0266XyzikicddParkview Health Montpelier Hospital CenterStart: 69-66-7810OcndmsygiParkview Health Montpelier Hospital CenterStart: 90-61-1166QbdxrlootParkview Health Montpelier Hospital CenterStart: 11-27-2019 End: 14-71-2595Mhwjvwnhz [facility] CenterStart: 16-39-2058Bwkhfjdyv [facility] CenterStart: 87-72-8738Mdykmhxfq [facility] CenterStart: 68-28-7452Mwyszjslp [facility] CenterStart: 87-24-8523Egyyidnev [facility] CenterStart: 06-03-4760Blbwidgjj [facility] CenterStart: 60-00-6053BzwxeeparParkview Health Montpelier Hospital CenterStart: 45-35-8530IeqsxlqtoParkview Health Montpelier Hospital CenterStart: 47-65-6615UflgiugrpParkview Health Montpelier Hospital CenterStart: 03-72-2511KsqhzzeaaParkview Health Montpelier Hospital CenterStart: 59-70-3298BihmuoxexParkview Health Montpelier Hospital CenterStart: 42-36-7537FrwrkdvzcParkview Health Montpelier Hospital CenterStart: 95-64-2228KvzeqogxqParkview Health Montpelier Hospital CenterStart: 83-74-6242Vdfbbbtpl [facility] CenterStart: 12-60-9023IcamphdocParkview Health Montpelier [facility] CenterStart: 20-76-8002ApwtnlabwParkview Health Montpelier Hospital CenterStart: 75-28-5080Endwklplk [facility] CenterStart: 66-83-8213OdgvlfyvrParkview Health Montpelier Hospital CenterStart: 52-25-6530XxwadinhfParkview Health Montpelier Hospital CenterStart: 34-58-9361IajmmgeicParkview Health Montpelier Hospital CenterStart: 14-30-8466Qwcjauvaa [facility] CenterStart: 51-10-3832Mqtqbwtxh [facility] CenterStart: 84-91-7566Whpmovsxd [facility] CenterStart: 20-45-3308JbssxngnrParkview Health Montpelier Hospital CenterStart: 05-98-3253IsmzkhkvmParkview Health Montpelier Hospital CenterStart: 86-88-5669Xtevrtiuw [facility] CenterStart: 87-74-9526IckvoobkzParkview Health Montpelier Hospital CenterStart: 42-97-6398VcwrntspdParkview Health Montpelier Hospital CenterStart: 91-10-5892LethesmcmParkview Health Montpelier Hospital CenterStart: 01-43-7204GYT High Risk: (Elderly (60+) or Population) (1 - 1-dose 75+ series)RSV High Risk: (Elderly (60+) or Population) (1 - 1-dose 75+ series)[facility]: 00-77-1161Vdqe Risk ScreeningFall Risk ScreeningDayton VA Medical Center SystemStart: 42-84-6142JEF patients and/or patients aged 60+ years (1 - 1-dose 60+ series)RSV patients and/or patients aged 60+ years (1 - 1-dose 60+ series)[facility]: 72-69-2404Gigrtdjxnqjkub of varicella zoster vaccineZoster (Shingles) Vaccine (1 of 2)[facility] SystemStart: 35-98-5934TMfR/Tdap/Td Vaccines (1 - Tdap)DTaP/Tdap/Td Vaccines (1 - Tdap)[facility]: 49-92-0562DClS,Tdap and Td Vaccines (1 - Tdap)DTaP,Tdap and Td Vaccines (1 - Tdap)[facility] Start: 99-70-0804Mebsqcflbipm vaccinationPneumococcal Vaccine (1 of 2 - PCV) [facility]: 03-21-4360Qdxfy screening for protein Diabetes: Urine Protein ScreeningUnMemorial Health System Sel[facility]: 77-37-3847Ykcrza Vaccines (1 of 2)Zoster Vaccines (1 of 2)[facility]: 09-36-5655Rrveibijpj ScreeningDepression ScreeningProMount Carmel Health System SystemStart: 35-07-7923Ybaholw ScreeningTobacco ScreeningProSamaritan North Health Centertart: 49-06-4426Hmmnetbw foot examinationDiabetes: Foot ExamUnMemorial Health System [facility]: 68-95-1932Cfuthfyshgra Vaccine: 65+ Years (1 - PCV) Pneumococcal Vaccine: 65+ Years (1 - PCV)[facility]: 55-34-6333Xxdmsmhcpdpb Vaccine: 65+ Years (1 of 2 - PCV)Pneumococcal Vaccine: 65+ Years (1 of 2 - PCV)[facility]: 93-59-8853VSHQI- 19 Vaccine (#1)COVID-19 Vaccine (#1)[facility]: 67-49-3373Ohzeendaid measurementCreatinine City HospitalUnMemorial Health System [facility]: 17-90-9505Xooulswgeb A1c measurementDiabetes: Hemoglobin A1C [facility]: 99-26-2419Tfsqf panelLipid Panel [facility]: 1940Medicare Annual Wellness Visit Medicare Annual Wellness Visit (AWV)[facility]: 19-56-2499Zohokqrzm measurementPotassium City HospitalUnSelect [facility] Start: 76-04-8303Azpyv screening for proteinDiabetes: Urine Protein Screening [facility]: 72-60-4261Thvreq Adult PhysicalYearly Adult PhysicalUnSelect Medical Specialty Hospital [facility], IncAnion gap measurementOhio State East HospitalAnion gap measurementOhio State East Hospital Basophils [#/volume] in Blood by Automated [facility] SystemBasophils/100 leukocytes in Blood by Automated [facility] SystemComprehenve metabolic 1999 panel - Serum or PlasmaParkview Health Montpelier Hospital Ctr Work Phone: Comprehenve metabolic 1999 panel - Serum or Plasma [facility] HospitalComprehensive metabolic 1999 panel - Serum or PlasmaOhio State East HospitalComprehensive metabolic 1999 panel - Serum or PlasmaOhio State East HospitalComprehensive metabolic 1999 panel - Serum or [facility] Medical CenterDXA Skeletal system.axial Views for bone densityParkview Health Montpelier Hospital Ctr Work Phone: DXA Skeletal system.axial Views for bone density [facility] HospitalECG 12 LeadECG 12 Lead ECG Routine Persistent atrial fibrillation with RVR (Multi) 12/07/2024 2:26 PM [facility] Service Area Work Phone: ECG 12 LeadECG 12 Lead ECG Routine Typical atrial flutter (Multi) 02/19/2025 3:38 PM [facility] Work Phone: Eosinophils/100 leukocytes in Blood by Automated count [facility] HospitalErythrocyte distribution width [Ratio] by Automated [facility] Health SystemErythrocyte distribution width [Ratio] by Automated [facility] SystemErythrocytes [#/volume] in [facility] CampusErythrocytes [#/volume] in [facility] CampusFREE K+L LT CHAINS, QN, SFREE K+L LT CHAINS, QN, S Lab STAT 08/01/2024 1:10 PM [facility] HospitalGlomerular filtration rate [Volume Rate/Area] in Serum, Plasma or Blood by Creatinine [facility] HospitalHematocrit [Volume Fraction] of [facility] CampusHematocrit [Volume Fraction] of [facility] CampusHemoglobin [Mass/volume] in [facility] Hemoglobin [Mass/volume] in [facility] CampusLeukocytes [#/volume] corrected for nucleated erythrocytes in Blood by Automated [facility] ClinicLeukocytes [#/volume] corrected for nucleated erythrocytes in Blood by Automated [facility] Leukocytes [#/volume] in [facility] CampusLymphocytes [#/volume] in Blood by Automated [facility] Lymphocytes/100 leukocytes in Blood by Automated [facility] SystemMCH [Entitic mass] by Automated countOhio State East HospitalMCH [Entitic mass] by Automated countOhio State East HospitalMCHC [Mass/volume] by Automated [facility] Health SystemMCHC [Mass/volume] by Automated [facility] SystemMCV [Entitic volume] by Automated [facility] Health SystemMCV [Entitic volume] by Automated [facility] SystemMonocytes [#/volume] in Blood by Automated [facility] SystemMonocytes/100 leukocytes in Blood by Automated [facility] SystemNeutrophils [#/volume] in Blood by Automated [facility] SystemNeutrophils/100 leukocytes in Blood by Automated [facility] SystemNucleated erythrocytes [Presence] in Blood by Automated [facility] SystemPatient [facility] Work Phone: Patient referralParkview Health Montpelier Hospital [facility]tr Work Phone: Platelet mean volume [Entitic volume] in Blood by Automated [facility] Health SystemPlatelet mean volume [Entitic volume] in Blood by Automated [facility] Health SystemPlatelets [#/volume] in [facility] CampusPlatelets [#/volume] in [facility] CampusProtein electrophoresis, serumProtein electrophoresis, serum Lab STAT 08/01/2024 1:10 PM [facility] [employer] Work Phone: Protein electrophoresis, serumProtein electrophoresis, serum Lab Routine 04/01/2025 2:44 PM [facility] [employer] Work Phone: Protein electrophoresis, serumProtein electrophoresis, serum Lab Routine 08/12/2025 1:57 PM [facility] [employer] Work Phone: Protein/Creatinine [Ratio] in UrineOhio State East HospitalRadiologic examination osseous survey [facility] Work Phone: Radiologic examination osseous survey [facility] HospitalRadiologic examination osseous survey Mercy HospitalRadiologic examination osseous survey [facility] HospitalRenal function 1999 panel - Serum or PlasmaOhio State East HospitalRenal function 1999 panel - Serum or [facility] CenterRenal function 1999 panel - Serum or [facility] CenterRenal function 1999 panel - Serum or [facility] End: 21-54-6769BH Heart TransthoracicUNM CHIL[facility] Service Area Work Phone: Comment on above:Once for 1 Occurrences starting 11/02/2023 until 11/02/2023[facility] Payers DatePayer CategoryPayerPolicy [id number] 2011Managed Care Other (unspecified)[facility] [id number] or Other [facility] [place], [place] [id number]6822.01965-28-2699Zjszqqn Health Insurance1.2.840.170856.1.13.693.2.7.9.287023.395712.44604-50-8675Czdradk [id number] [id number] [id number] 2..5.267981.58084948-62-7037Enzl-[id number]-[id number] 92-57-4955Zdrwndl31990644 2.160.6.993542.99208653-18-8053Lsjigut6110860 2.0.1.935387.3.579.2.87719-90-8774Ekljoil1431389 2..1.091596.3.579.2.40672-22-1258Snlgznu3285519 2.16840.1.985271.3.579.2.42998-36-2284Dspjdvt6917716 2.0.1.032752.3.579.2.97983-26-1260Rrzepgs3278299 2.16840.1.897321.3.579.2.46471-33-5739Krrgush6751879 2.16840.1.886022.3.579.2.56217-26-1513Ecwwygi9381391 2.16.840.1.301457.3.579.2.72886-56-4234Lgaptat9706141 2.16.840.1.132418.3.579.2.11723-98-2333Razpeff5815924 2.16.840.1.874010.3.579.2.80562-41-4018Clbuyvx2009927 2.16840.1.712568.3.579.2.81442-47-1261Jqpbgbe4549432 2.16840.1.543903.3.579.2.52138-77-9408Lcafuff6107730 2.16840.1.303839.3.579.2.85860-84-7254Nxfgfwg3163470 2.16840.1.838244.3.579.2.56073-08-2396Yeqsvir8280172 2.16840.1.759045.3.579.2.28447-39-4671Vtepalb846506827 2.16840.1.678724.3.579.2.44636-88-4698Dfvxetq523482552 2.16840.1.959110.3.579.2.14008-82-6438Hmffyzj94532974 2.16840.1.336685.3.579.2.207277-62-5478Jgluykp6599036 2.16840.1.284706.3.579.2.564025-37-4333Wlvkzwd609163580 2.16840.1.555148.3.579.2.865780-28-9638Gcgmydc279722003 2.16840.1.374370.3.579.2.876631-57-3623Ajgqvwd952641087 2.16840.1.006909.3.579.2.663022-39-4944Aryvkhm011081075 2.16.840.1.276272.3.579.2.335682-94-0096Rogwzfp973437212 2.16.840.1.340017.3.579.2.258990-67-2162Qadquyy190440245 2.16.840.1.082568.3.579.2.446684-09-7247Uhldawi92012990 2.16.840.1.538335.3.579.2.61048-21-2060Ortnmqt94168827 2.16.840.1.076956.3.579.2.122Pcfxxgn0525818 2.16.840.1.890510.3.579.2.593Unknown [id number] 2.16.840.1.938790.3.579.2.288Pupwcsj42815937 2.16.840.1.974265.3.579.2.085Vxwriwf54997748 2.16.840.1.012739.3.579.2.531 Mfcsvyx53521709 2.16.840.1.068095.3.579.2.927Oqxexgp39306949 2.16.840.1.268208.3.579.2.415Powfjyd98783238 2.16840.1.459909.3.579.2.531 Social History DateTypeDetailFacilityStart: 10-04-2023 End: 24-34-2729Yqlac caffeine consumption, 2-3 servings a dayDaily caffeine consumption, 2-3 servings a dayWaldo Hospital [facility] DO Work Phone: Start: 03-08-2022 End: 36-74-3548Mszutfm smoking statusNever smoked tobacco (finding)[facility] Tobacco smoking statusNeverExec[facility] start: 10-04-2023 End: 06-77-8065Zhf Assigned At [facility] CenterFeMe[facility] Quip Other Start: 60-22-6598Qow Assigned At [facility] Hospitaltart: 10-04-2023 End: 14-13-6729Qtovorr use and exposureSmokeless tobacco non-userUnSelect [facility], Inc Work Phone: Start: 10-04-2023 End: 91-04-6893Viysqtk intakeLifetime non-drinker (finding)[facility] Work Phone: Start: 51-09-2403Myd Assigned At BirthNot on file [facility] Work Phone: Start: 09-24-2023 End: 73-43-0698Mgjkwnpw to SARS-CoV-2 (event)Not sureAvita Health System Bucyrus HospitalStart: 11-28-2024 End: 22-48-5904YkvGvydfl (finding)[facility] Hospitaltart: 12-45-8646YxnjlfcniMer[facility] Work Phone: Tobacco smoking status NHISTobacco smoking consumption unknownAdams [facility] Hospital Medical Equipment Procedure CodeEquipment CodeEquipment Original TextEquipment IdentifierDates [facility] [place] 100 packStart: 07-10-2018 Goals DatePatient GoalDesired Activity/State Functional Status WkmjOusezbzvrsQhuxccHrcfkrjh12-49-9063Enelaluybw statusPatient at Baseline [facility] Work Phone: 1([phone] 480-551402979847-15-4429Dmpmajqlun statusPatient is Progressing Toward BaselineMercy Health Defiance Hospital Work Phone: [phone]qfflbcjvi statusPatient at Baseline [facility] Work Phone: 1(789) 741-533302809559-66-9422Sasikyqdio StatusN/AExec[facility] Mental Status HjgrUkcllgksbcLcjyjsVyxjstio05-12-2627Rrxptbnbw functionPatient at Baseline [facility] Work Phone: 1([phone] 192-842002-223056-66-8862Skppktptb functionPatient at Baseline [facility] Work Phone: [phone] 116-721911-503878-25-9956Rpwfznful functionCognitive Status Patient at BaselineParkview Health Montpelier [facility]tr Work Phone: Clinical Notes 07-27-2017 to 08-12-2025 Note Date & IrsrDnshReipdnig06-40-6411 Evaluation note* Diagnosis Onset Date Resolution Status Admit Date CKD (chronic kidney disease) stage 4, GF R 15-29 ml/min chronicSeptember 2024 1:37pmHyperlipidemiachronicSeptember 2024 1:37pmAtrial fibrillationresolvedSeptember 2024 1:37pmDiabetes mellitus type II, controlledresolvedSeptember 2024 1:37pmHTN (hypertension)resolved August 12, 2025 1:37pmMultiple myeloma in remissionresolvedSeptember 2024 1:37pmUnsteady gaitresolvedSeptember 2024 1:37pmAnemiainactive August 12, 2025 1:39gwD20 deficiency anemiainactiveSeptember 2024 1:37pmCerebellar stroke, acuteinactiveSeptember 2024 1:37pmDizziness deletedSept2024 1:37pmHearing lossinactiveSeptember 2024 1:37pm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inactiveSeptember 2024 1:37pm Multiple myelomainactiveSeptember 2024 1:37pmSteroid-induced hyperglycemia inactiveSept2024 1:37pmTransient left leg weaknessinactiveSeptember 2024 1:37pmDouble visiondeletedSeptember 2024 1:37pmLeft facial numbnessdeletedSeptember 2024 1:37pmShoulder paindeletedSeptember 2024 1:37pmWeaknessdeletedSeptember 2024 1:37pm [facility] Work Phone: 1(443) 801-804607-11-2025 History of Present illness Narrative* Elicia Rhodes [...] assessment at [facility], which was negative. Couple of years ago. [...] mg, Daily with breakfast fish oil concentrate (Reston-3) 120-180 mg capsule 1 capsule, 2 times [...] (Multi) 6. Aortic valve regurgitation, nonrheumatic 7. manager terminal current use of anticoagulant therapy 8. Stage [...] exam, discussion and plan. documented in this [facility] Work Phone: 1(607) 193-645607-11-2025 Instructions* Patient Instructions* Emily Casey LPN - [...] through Care Everywhere. * Heart Healthy Diet (Estonian) documented in this [facility] Work Phone: [phone] 135-692705-14-2025 History of Present illness Narrative* Elicia Rhodes [...] mg, Daily with breakfast fish oil concentrate (Reston-3) 120-180 mg capsule 1 capsule, 2 times [...] exam, discussion and plan. documented in this [facility] Work Phone: 1([phone]) 740-914305-14-2025 Instructions* Patient Instructions* Paris Gordillo LPN - [...] sent through Care Everywhere. * DASH Diet (Estonian) documented in this [facility] Work Phone: 1(469) 584-558305-12-2025 History of Present illness Narrative* KRISTEN Dinero [...] is worse. She did have to leave gnosticist early one day She admits ongoing balance [...] disease Chronic kidney disease, stage 4 (severe) ([facility]/HCC) Chronic myofascial pain Diabetes mellitus ([facility]/HCC) Difficulty walking HL (hearing loss) Hyperlipidemia ([facility]/HCC) Hypertension ([facility]/HCC) Kidney disease Kidney stones assisted (current) use of insulin ([facility]/HCC) Multiple myeloma Neuropathy in diabetes ([facility]/HCC) Stroke ([facility]) Transient ischemic attack Type 2 diabetes mellitus with hyperglycemia ([facility]) Vitamin D deficiency Weakness of limb Past [...] seen Lia Velazco PA-C documented in this encounterSalem Memorial District HospitalWugalnlpnq03-08-0404 [place] [address] Cardioversion Procedure Note Signed Patient: Hailee Trivedi MR#: [id number] : 1940 Acct:[id number] Age/Sex: 84 / F Adm Date: 5 Loc: Room: Type: [facility] Attending Dr: Jerrica Overton DIVISION SUPERINTENDENT Copies to: RAMAKRISHNA Willett MD Mourhaf A [...] MD 02/26/25 0956 Signed By: 02/26/25 0958 [facility]04-08-2025 History of Present illness Narrative * Jerrica Overton, DIVISION SUPERINTENDENT-DIRECTOR OF CONTRACTS - 02/19/2025 3:30 PM EDT Chief Complaint [...] fib. Jan 02, 2025: Uneventful DCC with sabianist NSR. February 04, 2025: Hospitalization at [facility] - ECG atrial fib. February 06, 2025: [...] had 2 hospitalizations during January 2025 at [facility]. Records are somewhat limited but I believe [...] mg, Daily with breakfast fish oil concentrate (Reston-3) 120-180 mg capsule 1 capsule, 2 times [...] of flecainide 50mg BID. Jan 02, 2025 [facility] failed to maintain NSR on AVN blocking agents. Her NSR is in 60s with 1st AVB on coreg 12.5mg BID 2. CHADS VASc 6 chronically anticoagulated renal dose Eliquis (age 84, Cr. 2.9). No missed dosing. Denies bleeding diathesis. Recent h/h stable 3. High risk med use: Flecainide start date January 27, 2025. Denies prior [place], CAD. MPI 2016 in old EMR but [...] schedule follow up Dr. Kendra Overton MSN, DIVISION SUPERINTENDENT-DIRECTOR OF CONTRACTS, PMHNP-[facility] [place], [place] Please excuse any errors in grammar or translation related to this dictation. Voice recognition software was utilized to prepare this document. documented in this [facility] Work Phone: [phone]) 804-861204-08-2025 Instructions* Patient Instructions* TED Willett - 02/19/2025 [...] follow up Dr. Rhodes documented in this encounterAvita [facility] Work Phone: 1([phone]) 245-553402-26-2025 History of Present illness Narrative* Grant Ivory [...] done in office today documented in this encounterUnSelect Medical Specialty [facility], Inc Work Phone: 1(658) 530-658402-19-2025 Procedure noteOhio State [facility] Hospital02-08-2025 Progress note Author Akin Suarez [facility] HospitalNote Date/TimeFebruary 2024 10:07am [place] [address] Nephrology Progress Note Signed Patient: Hailee Trivedi MR#: [id number] : 1940 Acct:[id number] Age/Sex: 84 / F Adm Date: 5 Loc: 3T Room: [address] [place] [address] Type: ADM IN Attending Dr: Jonathan Valenzuela [...] reported that she was recently admitted at [facility] and during hospitalization she was [...] scheduled to have a cardioversion by her miller apprentice Dr. Rhodes. Nephrology is consulted for CKD [...] Skin: No rashes , warm to touch POWDER GUARD: Awake,Alert, following simple command Musculoskeletal: No swelling [...] 5 Mg Tablet) 5 mg PO DAILY [facility] Stop: 12/19/25 16:59 Last Admin: 12/22/24 09:03 Dose: 5 mg Apixaban (Apixaban 2.5 Mg Tablet) 2.5 mg PO BID KARISSA Stop: 12/19/25 20:59 Last Admin: 12/22/24 09:04 Dose: 2.5 mg Atorvastatin Calcium (Atorvastatin 40 Mg Tablet) 40 mg PO QPM KARISSA Stop: 12/19/25 20:59 Last Admin: 12/21/24 20:28 Dose: 40 mg Carvedilol (Carvedilol 12.5 Mg Tablet) 12.5 mg PO BID.WITH.MEALS [facility] Stop: 12/19/25 16:59 Last Admin: 12/22/24 09:04 Dose: 12.5 mg Dextrose (Dextrose 50% In Water 25 Gm/50 Ml Syringe) 0 gm IV-PUSH PRN PRN PRN Reason: Hypoglycemia Stop: 12/19/25 16:31 Furosemide (Furosemide 40 Mg Tablet) 40 mg PO DAILY.8A [facility] Stop: 12/21/25 07:59 Last Admin: 12/22/24 09:04 Dose: 40 mg Glucose (Dextrose 40% Gel 15 Gm Tube) 0 gm PO PRN PRN PRN Reason: Hypoglycemia Stop: 12/19/25 16:31 Hydralazine HCl (Hydralazine 20 Mg/Ml Vial) 10 mg IV-PUSH Q4H PRN PRN Reason: if SBP > 185 Stop: 12/19/25 16:30 Insulin Aspart (Insulin Aspart 300 Units/3 Ml) 0 units SUBCUT TID.WM.[facility]; Protocol Stop: 12/19/25 16:59 Last Admin: 12/22/24 09:04 Dose: 1 units Potassium Chloride (Potassium Chloride Er 20 Meq Tab.Er.Prt) 20 meq PO DAILY [facility] Stop: 12/22/25 08:59 Last Admin: 12/22/24 [...] signed by Akin Suarez MD> 12/22/24 1007 [facility] Work Phone: 1(400) 590-763302-07-2025 Progress note Author Alivia Arana [facility] HospitalNote Date/TimeFebruary 2024 8:46pm [place] [address] Hospitalist Progress Note Signed Patient: Hailee Trivedi MR#: [id number] : 1940 Acct:[id number] Age/Sex: 84 / F Adm Date: 5 Loc: Room: [address] [place] [address] Type: ADM IN Attending Dr: Jonathan Valenzuela [...] the plan of care and confirmed the resident's/recruitment intern/medical student/nurse practitioner's dictation/written note. Agree with above plan, monitoring renal function, tentative plan for discharge tomorrow. Documented By: Alivia Arana APRN 12/21/24 1112 Signed By: <Electronically signed by RAMAKRISHNA Arana> 12/21/24 1120 <Electronically signed by Jonathan Valenzuela MD> 12/21/242045 [facility] Work Phone: 1(221) 311-326702-07-2025 Progress note Author Akin Suarez [facility] HospitalNote Date/TimeFebruary 2024 9:35am [address] [address] Nephrology Progress Note Signed Patient: Hailee Trivedi MR#: [id number] : 1940 Acct:[id number] Age/Sex: 84 / F Adm Date: 5 Loc: Room: [address] [place] [address] Type: ADM [place] Attending Dr: Jonathan Valenzuela [...] reported that she was recently admitted at [facility] and during hospitalization she was [...] scheduled to have a cardioversion by her miller apprentice Dr. Rhodes. Nephrology is consulted for CKD [...] Skin: No rashes , warm to touch POWDER GUARD: Awake,Alert, following simple command Musculoskeletal: No swelling [...] 300 Units/3 Ml) 0 units SUBCUT TID.[facility]; Protocol Stop: 12/19/25 16:59 Last Admin: [...] signed by Akin Suarez MD> 12/21/24 0935 [facility] Work Phone: 1(411) 307-433202-06-2025 History and physical note Author Alivia Arana [facility] HospitalNote Date/TimeFebruary 2024 8:40pm [place] [address] Hospitalist H&P Signed Patient: Hailee Trivedi MR#: [id number] : 1940 Acct:[id number] Age/Sex: 84 / F Adm Date: 5 Loc: Room: [address] [place] [address] Type: ADM IN Attending Dr: Jonathan Valenzuela [...] subcut BID 07/05/24 [History Confirmed 12/19/24] omega 7-rrq-jgd-fish oil 1,000 mg (120 mg-180 mg) capsule [...] % (Auto) 27.1 % (.) 12/19/24 14:08 [place] % (Auto) 7.0 % (.) 12/19/24 14:08 Eos % (Auto) 0.9 % (.) 12/19/24 14:08 Baso % (Auto) 1.3 % (.) 12/19/24 14:08 Nucleat RBC Rel Count 0.2 /100 WBC (0-0.5) 12/19/24 14:08 Neut # (Auto) 5.3 x10E3/uL (1.8-7.7) 12/19/24 14:08 Lymph # (Auto) 2.3 x10E3/uL (1.00-4.8) 12/19/24 14:08 [place] # (Auto) 0.6 x10E3/uL (0.0-0.8) 12/19/24 14:08 [...] the plan of care and confirmed the resident's/recruitment intern/medical student/nurse practitioner's dictation/writtennote. Patient seen on admission, agree with above plan. Documented By: Alivia Arana APRN 12/19/24 1546 Signed By: <Electronically signed by RAMAKRISHNA Arana> 12/19/24 1636 <Electronically signed by Jonathan Valenzuela MD> 12/20/242039 [facility] Work Phone: 1(925) 211-915002-06-2025 Progress note Author Alivia Arana [facility] HospitalNote Date/TimeFebruary 2024 8:40pm [place] [address] Hospitalist Progress Note Signed Patient: Hailee Trivedi MR#: [id number] : 1940 Acct:[id number] Age/Sex: 84 / F Adm Date: 5 Loc: 3T Room: [address] [place] [address] Type: ADM IN Attending Dr: Jonathan Valenzuela [...] Ml SUBCUT 12/19/25 16:59 Not Given TID.[facility] Protocol Sodium Chloride 0 ml 12/19/24 [...] <Electronically signed by Jonathan Valenzuela MD> 12/20/242039 [facility] Work Phone: 1([phone]) 441-956502-06-2025 Consult note Author Akin Suarez [facility] HospitalNote Date/TimeFebruary 2024 11:58am [place] [address] Nephrology Consult Note Signed Patient: Hailee Trivedi MR#: [id number] : 1940 Acct:[id number] Age/Sex: 84 / F Adm Date: 5 Loc: Room: [address] [place] [address] Type: ADM IN Attending Dr: Jonathan Valenzuela [...] reported that she was recently admitted at [facility] and during hospitalization she was [...] scheduled to have a cardioversion by her miller apprentice Dr. Rhodes. Machine Packaging Technician consulted for CKD and fluid overload management. [...] polydipsia Dermatological: denies any itching or rash [facility] Medical History Congestive heart failure (CHF) Multiple [...] subcut BID 07/05/24 [History Confirmed 12/19/24] omega 8-nwl-qhq-fish oil 1,000 mg (120 mg-180 mg) capsule [...] 5 Mg Tablet) 5 mg PO DAILY [facility] Stop: 12/19/25 16:59 Last Admin: 12/20/24 08:20 Dose: Not Given Apixaban (Apixaban 2.5 Mg Tablet) 2.5 mg PO BID [facility] Stop: 12/19/25 20:59 Last Admin: 12/20/24 08:20 Dose: Not Given Atorvastatin Calcium (Atorvastatin 40 Mg Tablet) 40 mg PO QPM [facility] Stop: 12/19/25 20:59 Last Admin: 12/19/24 21:45 Dose: 40 mg Carvedilol (Carvedilol 12.5 Mg Tablet) 12.5 mg PO BID.WITH.[facility]ALS [facility] Stop: 12/19/25 16:59 Last Admin: 12/20/24 [...] Aspart 300 Units/3 Ml) 0 units SUBCUT TID.[facility]; Protocol Stop: 12/19/25 16:59 Last Admin: [...] Skin: No rashes , warm to touch POWDER GUARD: Awake,Alert, following simple command Musculoskeletal: No swelling [...] Palm Jr., D.O.12/19/2024 2:57 PM Dictation Location: [place] [address] Any impression(s) listed above is documentation that [...] <Electronically signed by Akin Suarez MD> 12/20/24 1157 [facility] Work Phone: 1(959) 987-209802-05-2025 Evaluation note* Diagnosis Onset Date Resolution Status [...] 2024 10:52amDepressionacuteMarch 2024 10:52amHypotension acuteMarch 2024 10:52am [facility] Work Phone: 1([phone] 764-409601-24-2025 History of Present illness Narrative* Fadia Grace [...] she had an echocardiogram while in the [facility] on 11/21/24. To Dr. Rhodes to read Vitals: 12/07/24 1542 BP: 120/56 BP Location: Right arm Patient Position: Sitting Pulse: 86 Weight: 85.3 kg (188 lb) Height: 1.626 m (5' 4 ) EKG done in office today documented in this [facility] Work Phone: 1(967) 736-287101-15-2025 Evaluation note* Diagnosis Onset Date Resolution Status Admit Date Acute on chronic diastolic (congestive) heart failure resolvedJanuary 2024 10:36amCKD (chronic kidney disease) stage 4, GFR 15- 29 ml/mininactiveJanuary 2024 10:36amAtrial fibrillationresolvedJanuary 2024 1:03pmDiabetes mellitus type II, controlledresolvedJanuary 2024 1:03pmHTN (hypertension)resolvedNovuary 2024 1:03pmMultiple myeloma in remissionresolvedJanuary 2024 1:03pmUnsteady gaitresolvedJanuary 2024 1:03pmAnemiainactiveJanuary 2024 1:71agJ05 deficiency anemiainactive December 12, 2024 1:03pmCerebellar stroke, [...] 10:49am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inactiveFebruary 2024 10:49am [facility] Work Phone: 1([phone] 801-546801-15-2025 Evaluation note* Diagnosis Onset Date Resolution Status Admit Date Acute on chronic diastolic (congestive) heart failure resolvedJanuary 2024 10:36amCKD (chronic kidney disease) stage 4, GFR 15- 29 ml/mininactiveJanuary 2024 10:36amAtrial fibrillationresolvedJanuary 2024 1:03pmDiabetes mellitus type II, controlledresolvedJanuary 2024 1:03pmHTN (hypertension)resolvedJanuary 2024 1:03pmMultiple myeloma in remissionresolvedNovuary 2024 1:03pmUnsteady gaitresolvedJanuary 2024 1:03pmAnemiainactiveJanuary 2024 1:48nuK15 deficiency anemiainactive December 12, 2024 1:03pmCerebellar stroke, [...] 2024 10:52amDepressionacuteMarch 2024 10:52amHypotension acuteMarch 2024 10:52am [facility] Work Phone: 1([phone] 437-782012-19-2024 History of Present illness Narrative* Elicia Rhodes [...] assessment at [facility], which was negative. Couple of years ago. [...] breakfast., Disp: , Rfl: fish oil concentrate ([place]-3) 120-180 mg capsule, Take 1 capsule (1 [...] exam, discussion and plan. [facility] Work Phone: 1([phone] 478-831712-19-2024 Instructions* Patient Instructions* Daisy Mane LPN - [...] Watchman discussed Follow up documented [facility] Work Phone: [phone]) 909-852412-17-2024 Evaluation note* Diagnosis Onset Date Resolution Status [...] 2024 1:03pmUnsteady gaitresolvedNovuary 2024 1:03pmAnemiainactive Kimberly 2024 1:22puN86 deficiency anemiainactiveJanuary 2024 1:03pm DizzinessdeletedNovuary 2024 1:03pmHearing lossinactiveNovuary 2024 1:03pmMultiple myelomainactiveNovuary 2024 1:03pmSteroid-induced hyperglycemiainactiveJanuary 2024 1:03pmTransient left leg weakness inactiveNovuary 2024 1:03pmDouble visiondeletedJanuary 2024 1:03pm Left facial numbnessdeletedJanuary 2024 1:03pmShoulder paindeletedNovuary 2024 1:03pmWeaknessdeletedJanuary 2024 1:03pmAcute on chronic diastolic (congestive) heart failureacuteFebruary 2024 4:18pmCKD (chronic kidney disease) stage 4, GFR 15-29 ml/minacuteFebruary 2024 4:18pmDyspnea acuteFebruary 2024 4:18pmFluid retentionacuteFebruary 2024 4:18pmHeart failureacuteFebruary 2024 4:18pm [facility] Work Phone: 1([phone] 905-228812-17-2024 Evaluation note* Diagnosis Onset Date Resolution Status [...] 1:03pmUnsteady gaitresolvedJanuary 2024 1:03pmAnemiainactive December 12, 2024 1:22etL50 deficiency anemiainactiveNovuary 2024 1:03pm DizzinessdeletedJanuary 2024 1:03pmHearing [...] kidney diseaseacuteFebruary 2024 4:18pmHeart failuredeletedFebruary 2024 4:18pm [facility] Work Phone: 1([phone] 511-886512-17-2024 Evaluation note* Diagnosis Onset Date Resolution Status [...] 1:03pmUnsteady gaitresolvedJanuary 2024 1:03pmAnemiainactive December 12, 2024 1:21hcF05 deficiency anemiainactiveJanuary 2024 1:03pm DizzinessdeletedJanuary 2024 1:03pmHearing [...] diseaseacuteFebruary 2024 2:26pmVitamin D deficiencyacuteFebruary 2024 2:26pm [facility] Work Phone: 1([phone] 849-321512-17-2024 Evaluation note* Diagnosis Onset Date Resolution Status [...] 1:03pmUnsteady gaitresolvedJanuary 2024 1:03pmAnemiainactive December 12, 2024 1:63ciO21 deficiency anemiainactiveJanuary 2024 1:03pm DizzinessdeletedJanuary 2024 1:03pmHearing [...] diseaseacuteFebruary 2024 2:26pm Kidney stoneinactiveFebruary 2024 2:26pm [facility] Work Phone: 1([phone] 121-921312-17-2024 Evaluation note* Diagnosis Onset Date Resolution Status [...] 2024 1:03pmUnsteady gaitresolvedJanuary 2024 1:03pmAnemiainactive Kimberly 2024 1:35anP06 deficiency anemiainactiveJanuary 2024 1:03pm Cerebellar stroke, acuteinactiveNovuary [...] multiple 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 inactiveFebruary 2024 10:49am [facility] Work Phone: 1([phone]) 816-758712-10-2024 Miscellaneous Notes* Telephone Encounter - Shilpa Martinez CMA - 10/23/2024 11:43 AM EST ----- Message from Dr. Flako Huggins DO sent at 10/22/2024 12:42 PM EST ----- Please let patient know she had mild chronic gastritis and a small fundic gland polyp which was benign. Recommend she take Prilosec [id number]-[id number] if not already on that or something similar. ThanksDr. Gómez * Telephone Encounter - Shilpa Martinez CMA - 10/23/2024 11:43 AM EST Spoke with patient regarding pathology results. Patient verbally understood with no further questions. Informed patient of Dr. Huggins's recommendations. [facility] Telephone encounter Note* Telephone Encounter - Shilpa Martinez CMA - 10/23/2024 11:43 AM EST ----- Message from Dr. Flako Huggins DO sent at 10/22/2024 12:42 PM EST ----- Please let patient know she had mild chronic gastritis and a small fundic gland polyp which was benign. Recommend she take Prilosec xmlp-dez-nmmrgut if not already on that or something similar. Thanks, Dr. Gómez [facility]12-10-2024 Telephone encounter Note* Telephone Encounter - Shilpa Martinez CMA - 10/23/2024 11:43 AM EST Spoke with patient regarding pathology results. Patient verbally understood with no further questions. Informed patient of Dr. Huggins's recommendations. [facility] HospitalVital Herd [id number] Consult note Author Cristiano Diaz [facility] September 18, 2024 1:50pmNote Date/TimeNov2023 11:34[place] [address] Physiatry (Rehab) Consult Note Signed Patient: Hailee Trivedi MR#: [id number] : 1940 Acct:[id number] Age/Sex: 84 / F Adm Date: 4 Loc: Room: [address] [place] [address] Type: ADM INO Attending Dr: Trent Patterson [...] well. She had also recently been to [facility] and was diagnosed with a UTI. [...] negative unless noted below or in HPI [facility] Medical History Multiple myeloma Type 2 diabetes [...] subcut BID 07/05/24 [History Confirmed 09/17/24] omega 9-cfr-yvj-fish oil 1,000 mg (120 mg-180 mg) capsule (Fish Oil) 1 cap PO Q48HR 07/05/24 [History Confirmed 09/17/24] sodium citrate-citric acid 490 mg-640 mg/5 mL oral solution (Oracit) 10 ml PO QHS PRN Kidney zhqgai31/22/24 [History Confirmed 09/17/24] amlodipine 5 mg tablet [...] % (Auto) 87.9 Lymph % (Auto) 4.8 [place] % (Auto) 4.9 Eos % (Auto) 2.1 Baso % (Auto) 0.3 Nucleat RBC Rel Count 0.0 Neut # (Auto) 10.6 H Lymph # (Auto) 0.6 L [place] # (Auto) 0.6 Eos # (Auto) 0.3 [...] Appearance Clear Urine pH 5.5 Ur Specific [place] 1.023 Urine Protein 50 H Urine Glucose [...] MPV Neut % (Auto) Lymph % (Auto) [place] % (Auto) Eos % (Auto) Baso % (Auto) Nucleat RBC Rel Count Neut # (Auto) Lymph # (Auto) [place] # (Auto) Eos # (Auto) Baso # [...] Color Urine Appearance Urine pH Ur Specific [place] Urine Protein Urine Glucose (UA) Urine Ketones [...] % (Auto) 81.6 Lymph % (Auto) 6.6 [place] % (Auto) 8.7 Eos % (Auto) 2.3 Baso % (Auto) 0.8 Nucleat RBC Rel Count 0.0 Neut # (Auto) 8.0 H Lymph # (Auto) 0.7 L [place] # (Auto) 0.9 H Eos # (Auto) [...] Color Urine Appearance Urine pH Ur Specific [place] Urine Protein Urine Glucose (UA) Urine Ketones [...] this time. Iwould recommend discharge to a usp facility for continued therapy services. -Continue early mobility and OOB therapy. -Thank you for the consult. Patient was personally seen by me, Dr. Diaz, on the day of encounter, reviewed the history and the relevant portions of the chart, including current orders, allied health and peoplesoft hcm consultant notes, labs/imaging and performed chahal elements of exam and I formulated the plan of care and facilitated the medical decision making. I completed a substantive portion of this encounter, the medical decision making portion of this note in its entirety, including Allied health note review, nursing note review, peoplesoft hcm consultant note review, discussion with nursing and case management, and more than 50% of my time was spent on counseling and coordination of care, time spent 65 minutes Documented By: Cristiano Diaz MD [id number] Signed By: <Electronically signed by Cristiano Diaz MD> 09/18/24 1351 [facility] Work Phone: 1(625) 516-970411-05-2024 Progress note Author Trent Patterson [facility] September 18, 2024 1:48pmNote Date/TimeNov2023 1:41pm[place] [address] Hospitalist Progress Note Signed Patient: Hailee Trivedi MR#: [id number] : 1940 Acct:[id number] Age/Sex: 84 / F Adm Date: 4 Loc: Room: [address] [place] [address] Type: ADM INOo Attending Dr: Trent Patterson [...] care and confirmed it with the re sident/student/AUTOMOTIVE WORKER FOREMAN. This patient presented to the emergency department complaining of fatigue, diarrhea, lower abdominal pain. She states that she recovered from COVID about 2 weeks ago. This past Tuesday she presented herself to [place] and was diagnosed with a UTI and [...] Insuln.Pen SUBCUT 09/18/25 07:59 Not Given TID.[facility] Protocol Insulin Human NPH 15 units 09/18/24 09:00 09/18/24 08:45 Insulin Nph Human Isophane 300 Units/3 Ml Insuln.Pen SUBCUT 09/18/25 08:59 15 units BID [facility] Administration Rivaroxaban 15 mg 09/18/24 17:00 Rivaroxaban 15 Mg Tablet PO 09/18/25 16:59 DAILY.WITH.SUPPER [facility] Sodium Bicarbonate 1,300 mg 09/18/24 14:00 [...] signed by DO MARK Everett> 09/18/24 1342 [facility] Work Phone: 1([phone]) 261-907811-05-2024 History and physical note Author Pool Buck [facility] September 18, 2024 5:23amNote Date/TimeNov2023 1:33[place] [address] Hospitalist H&P Signed Patient: Hailee Trivedi MR#: [id number] : 1940 Acct:[id number] Age/Sex: 84 / F Adm Date: 4 Loc: Room: [address] [place] [address] Type: ADM INOo Attending Dr: Pool Buck MD Copies to: MD Curt Boogie MD Paula G Smith, DIVISION SUPERINTENDENT~ HPI DATE OF EXAMINATION: 09/18/24 CHIEF COMPLAINT: [...] stools are black. She reports going to [facility] emergency room Tuesday and they [...] 30.4. ABG with a pH of 7.34, .9. CMP with a serum bicarb of 17.5, [...] will be admitted as observation to the [facility] floor Review of Systems Review of Systems Review of systems: A 10 point review of systems was obtained, negative unless noted in the HPI or below. [facility] Medical History Multiple myeloma Type 2 diabetes [...] subcut BID 07/05/24 [History Confirmed 09/17/24] omega 3-thf-bra-fish oil 1,000 mg (120 mg-180 mg) capsule (Fish Oil) 1 cap PO Q48HR 07/05/24 [History Confirmed 09/17/24] sodium citrate-citric acid 490 mg-640 mg/5 mL oral solution (Oracit) 10 ml PO QHS PRN Kidney ookdvb81/22/24 [History Confirmed 09/17/24] amlodipine 5 mg tablet [...] % (Auto) 4.8 % (.) 09/17/24 21:16 [place] % (Auto) 4.9 % (.) 09/17/24 21:16 Eos % (Auto) 2.1 % (.) 09/17/24 21:16 Baso % (Auto) 0.3 % (.) 09/17/24 21:16 Nucleat RBC Rel Count 0.0 /100 WBC (0-0.5) 09/17/24 21:16 Neut # (Auto) 10.6 x10E3/uL (1.8-7.7) H 09/17/24 21:16 Lymph # (Auto) 0.6 x10E3/uL (1.00-4.8) L 09/17/24 21:16 [place] # (Auto) 0.6 x10E3/uL (0.0-0.8) 09/17/24 21:16 [...] pH 5.5 (5.0-9.0) 09/17/24 21:56 Ur Specific [place] 1.023 (1.001-1.030) 09/17/24 21:56 Urine Protein 50 [...] <Electronically signed by Pool Buck MD> 09/18/24522 [facility] Work Phone: [phone]) 188-201411-05-2024 Evaluation note* Diagnosis Onset Date Resolution Status Admit Date CKD (chronic kidney disease) stage 4, GF R 15-29 ml/min [facility] 20[facility] 12:41amAtrial fibrillationresPhysicians [facility] 2023 12:41amChest painresPhysicians Care Surgical Hospital 2023 12:41amDiabetes mellitus type II, controlledresPhysicians Care Surgical Hospital 2023 12:41amDiabetic neuropathyresPhysicians Care [facility] 2023 12:41amDyspnearesPhysicians Care Surgical Hospital 2023 12:41amHTN (hypertension) [facility] 2023 12:41amHyperlipidemiaresPhysicians Care Surgical Hospital 2023 12:41amHypomagnesemiaresPhysicians Care Surgical Hospital 2023 12:41amImpaired mobility and activities of daily livingresPhysicians Care Surgical Hospital 2023 12:41amMultiple myeloma in remissionresPhysicians Care Surgical Hospital 2023 12:41amWeaknessresPhysicians Care Surgical Hospital 2023 12:41amAnxietyacuteDeceer 2023 1:58pmCKD (chronic kidney disease) stage 4, GFR 15-29 ml/minacuteDececobalt rehabilitation [facility]) [facility] 2023 1:58pmUGI bleedacuteDeceer 2023 1:58pmParoxysmal atrial fibrillationinactiveDeceer 2023 1:58pm [facility] Work Phone: 1([phone]) 576-574206-04-2024 History of Present illness Narrative* Elicia Rhodes [...] assessment at [facility], which was negative. Couple of years ago. [...] once daily.,Disp: , Rfl: fish oil concentrate ([place]on-3) 120-180 mg capsule, Take 1 capsule (1 [...] assessment at [facility], which was negative. Couple of years ago. [...] once daily.,Disp: , Rfl: fish oil concentrate ([place]-3) 120-180 mg capsule, Take 1 capsule (1 [...] exam, discussion and plan. [facility] in [facility]Av[facility] Work Phone: 1([phone]) 390-814206-04-2024 Instructions* Patient Instructions* Daisy Mane LPN - [...] through Care Everywhere. * Diet and health (Estonian) documented in this encounterAvita [facility] Work Phone: 1([phone]) 211-900802-26-2024 Hospital Discharge instructions Follow Up Care 01/09/2024 09:43:11 With:XAVIER VELAZQUEZ, Tyree Rivers, URL Address: [facility] [address] [place] [address]- [phone] When: Unknown [facility] 01-18-2024 Evaluation note* Encounter Date Diagnosis Assessment [...] chronic kidney disease (ICD-10 - N18.4)Let her thermograph operator know that she is having trouble affording the oracit. Will see him as scheduled on 12/05. 18 [place], 2024Other viral warts (ICD-10 - B07.8)Two areas - L anterior neck and superior to R eyebrow treated w cyrofreeze. Had treated neck in thepast. Pt tolerated well. [facility] Other 12-04-2023 Evaluation note* Encounter Date Diagnosis Assessment Notes Treatment Notes Treatment Clinical Notes Oct, Type 2 diabetes mellitus with hy perglycemia (ICD-10 - E11.65) [facility] Other 11-30-2023 Evaluation note* Encounter Date Diagnosis Assessment Notes Treatment Notes Treatment Clinical Notes Sep, Type 2 diabetes mellitus with hy perglycemia (ICD-10 - E11.65) [facility] Other 11-21-2023 History of Present illness Narrative* [...] assessment at [facility], which was negative. Couple of years ago. [...] once daily.,Disp: , Rfl: fish oil concentrate (Reston-3) 120-180 mg capsule, Take 1 capsule (1 [...] chronic kidney disease (CMS/HCC) documented in this encounterAv[facility] Work Phone: 1(344) 899-698011-21-2023 Instructions* Patient Instructions* Daisy Mane LPN - [...] Follow up 6 months documented in this encounterAvita [facility] Work Phone: 1([phone]) 877-633711-13-2023 Evaluation note* Encounter Date Diagnosis Assessment Notes Treatment Notes Treatment Clinical Notes Sep, Bronchitis (ICD-10 - J40) Discussed diagnosis with patient. Finish entire course of antibiotic. Tessalon Pearles ordered to take as needed for cough. Increase fluids and rest. Yrvf-sfg-txymbba antipyretics as needed. Warning signs and symptoms reviewed with patient today. Patient to go immediately to the ER should she experience any of these. Patient to notify office should her symptoms persist and not improve. Patient verbalizes understanding and agrees to treatment plan. [facility] Other 10-31-2023 Evaluation note* Encounter Date Diagnosis Assessment Notes Treatment Notes Treatment Clinical Notes Aug, Lumbar pain (ICD-10 - M54.50) Hx of falls - will check lumbar XR to r/o fracture Aug,Left flank pain (ICD-10 - R10.9)r/o nephrolith Aug,ronchitis (ICD-10 - J40)Finish antibiotics. Take prednisone. Understands it will increase her glucose. [facility] Other 10-18-2023 Evaluation note* Encounter Date Diagnosis Assessment Notes Treatment Notes Treatment Clinical Notes Aug, Acute pain of left knee (ICD-10 - M25.562) Aug,OtherPatient's not having any pain today. At this point she can call me in the future if she needs me [facility] Other 08-11-2023 Evaluation note* Encounter Date Diagnosis Assessment Notes Treatment Notes Treatment Clinical Notes Jun, UTI symptoms (ICD-10 - R39.9) Will treat empirically as she is unable to provide a sample today. Jun,Weakness (ICD-10 - R53.1)Agrees to for PT and possible help with medications. Jun,alance disorder (ICD-10 - R26.89)as above [facility] Other 08-10-2023 Evaluation note* Encounter Date Diagnosis [...] above the goal. Continue follow-up [facility] PCP for diabetes mellitus management.She is not [...] to the CKD. Continue oral sodium bicarbonate. [facility] Other 06-13-2023 Evaluation note* Encounter Date Diagnosis Assessment Notes Treatment Notes Treatment Clinical Notes Apr, Vasovagal syncope (ICD-10 - R55) Nearly passed out in office, BP down to 90/58. Staff helped her to friends car. Report called to Dr. Agudelo at [facility] ER. Likely due to taking bp med again, when her miller apprentice has d/c it. Pt sent to ER. Apr,Weakness (ICD-10 - R53.1)Pt agrees to HH and PT. Also could use help from for walk in shower and local services for seniors. Apr,cute pain of left knee (ICD-10 - M25.562)tramadol, PT, and HH Apr,OtherPt states tylenol is not helpful and requests another pain med. She agrees to HH and PT [facility] Other 05-03-2023 NotePROCEDURE: XR KNEE LT 1_2 [...] Electronically authenticated by: WILD SOLO Date: 2023-03-16 09:18[facility]05-02-2023 Evaluation note* Encounter Date Diagnosis Assessment Notes Treatment Notes Treatment Clinical Notes March, Left lateral knee pain (ICD-10 - M25.562) Discussed possible PT. Has improved overall with rest and stretching. Will start with Xray. Recommended tylenol products. March,Hypertension (ICD-10 - I10)chronic. stable - controlled on present meds [facility] Other 02-28-2023 Progress note Author Misti Connolly [facility] January 11, 2023 11:19amNote Date/TimeFebruary 2022 10:42[facility] [facility] [address] [address] Hem/Onc Follow Up Note - OP Signed Patient: Hailee Trivedi MR#: [id number] : 1940 Acct:[id number] Age/Sex: 82 / F Type: REG RCR [...] daratumumab well. Within one month of starting imra in 2015 she had 95% reduction in [...] neurologist. Head CT done March 2022 at [facility] without new/acute findings. 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 [...] been trying to transfer her care to [place] [facility] clinic but they are not up [...] x 1 week, sees neurology (followed at [facility]) who have ruled out stroke, CT [...] for coordination of care (as documented) and tszw-ya-mmpt counseling of patient and/or family. [facility] - Medical History Medical History: Medical History [...] 01/19/22 09:00 KB (Rec: 01/19/22 09:01 KB [id number]) Distress Screening Distress screening follow up: Will follow with patient for any needs at next visit. Anxious about making next appointment time. - Lab Results Diagram of Most Recent CBC and CMP 01/04/23 14:45 01/04/23 14:45 Labs - Last 7 Days 01/04/23 14:45: Free Lemitar LC, Quant 26.9 H, Free Lambda LC, Quant 12.0, Free Lemitar/Lambda Ratio 2.24 H 01/04/23 14:45: PHA Creatinine Clear 19.82, Sodium 137, Potassium 4.3, Chloride 108, Carbon Pcgixze04.9 L, Anion Gap 11.4, BUN 33 H, [...] % (Auto) 54.8, Lymph % (Auto) 34.1, [place] % (Auto) 8.0, Eos % (Auto) 2.3, Baso % (Auto) 0.8, Nucleat RBC Rel Count 0.0, Neut # (Auto) 4.9, Lymph # (Auto) 3.0, [place] # (Auto) 0.7, Eos # (Auto) 0.2, [...] by RAMAKRISHNA Chappell Malka Elizondogretta> 01/11/23 1119 [facility] Work Phone: [phone]) 296-686102-27-2023 Hospital Discharge instructions Patient Education 01/10/2023 08:23:12 [...] include: ?Spinach. ?Rhubarb. ?Beets. ?Potato chips and icelandic fries. ?Nuts. If you regularly take a diuretic medicine, make sure to eat at least 1 2 fruits or vegetables high in potassium each day. These include: ?Avocado. ?Banana. ?[place], prune, carrot, or tomato juice. ?Baked potato. [...] Casseroles. Pizza. Lasagna. Frozen meals. Potato chips. [place]cairn Islander fries. Summary You can reduce your risk [...] 02/25/2012 Document Revised: 02/20/2020 Document Reviewed: 10/11/2017 [employer] Patient Education 2020 [employer]. Follow Up Care 03/08/2022 11:44:08 With:XAVIER VELAZQUEZ, Tyree Rivers, URL Address: [facility] [address], [place] [address]- When: Unknown [facility] 02-08-2023 Evaluation note* Encounter Date Diagnosis [...] above the goal. Continue follow-up [facility] PCP for diabetes mellitus management.She is not [...] to the CKD. Continue oral sodium bicarbonate. [facility] Other 01-26-2023 Evaluation note* Encounter Date Diagnosis Assessment Notes Treatment Notes Treatment Clinical Notes Nov, Paroxysmal atrial fibrillation ( ICD-10 - I48.0) Patient understands to restart all of her medicines and take them as prescribed Will notify her miller apprentice of this situation. Nov,Wart of face (ICD-10 - B07.9)Small wart on her face was treated with cryo freeze without issue pt tolerated procedure well Nov,KD (chronic kidney disease), stage IV (ICD-10 - N18.4)Discussed follow-up appointment with Dr. Jane Nov,Multiple myeloma (ICD-10 - C90.00)Stable on present appointments and treatment [facility] Other 10-04-2022 Progress note Author Claire Choi [facility] August 17, 2022 1:48pmNote Date/TimeSept2021 4:57pm[facility] [place] [address] Hem/Onc Follow Up Note - OP Signed with Addenda Patient: Hailee Trivedi MR#: [id number] : 1940 Acct:[id number] Age/Sex: 82 / F Type: REG RCR [...] neurologist. Head CT done March 2022 at [facility] without new/acute findings. May suggest brain MRI if no other etiologies identified - History of Present Illness Chief Complaint: Patient is here for a 3 month follow up with outside labs for review. States she has had ongoing lower back pain for the last month or so. Patient scheduled for Cycle 55 Daratumumab today. 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 [...] been trying to transfer her care to [place] [facility] clinic but they are not up [...] x 1 week, sees neurology (followed at [facility]) who have ruled out stroke, CT [...] for coordination of care (as documented) and yffq-vz-lodi counseling of patient and/or family. [facility] - Medical History Medical History: Medical History [...] 01/19/22 09:00 KB (Rec: 01/19/22 09:01 KB [id number]) Distress Screening Distress screening follow up: Will [...] signed by Claire Choi II, DO> 08/03/221658 [facility] Work Phone: 1([phone]) 845-466209-20-2022 Progress note Author Claire Choi [facility] August 03, 2022 5:01pmNote Date/TimeSept2021 5:00pm[facility] [address] [address] Hem/Onc Follow Up Note - OP Signed Patient: Hailee Trivedi MR#: [id number] : 1940 Acct:[id number] Age/Sex: 82 / F Type: REG RCR [...] neurologist. Head CT done March 2022 at [facility] without new/acute findings. May suggest brain MRI if no other etiologies identified - History of Present Illness Chief Complaint: Patient is here for a 3 month follow up with outside labs for review. States she has had ongoing lower back pain for the last month or so. Patient scheduled for Cycle 55 Daratumumab today. 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 [...] been trying to transfer her care to [place] [facility] clinic but they are not up [...] x 1 week, sees neurology (followed at [facility]) who have ruled out stroke, CT [...] for coordination of care (as documented) and tnwt-dk-bhzw counseling of patient and/or family. [facility] - Medical History Medical History: Medical History [...] 01/19/22 09:00 KB (Rec: 01/19/22 09:01 KB [id number]) Distress Screening Distress screening follow up: Will [...] by Claire Choi II, DO> 08/03/22 1701 [facility] Work Phone: [phone]) 331-132608-24-2022 Evaluation note* Encounter Date Diagnosis Assessment Notes [...] above the goal. Continue follow-up [facility] PCP for diabetes mellitus management.She is not [...] Jun,Multiple myeloma (ICD-10 - C90.00)Follows with Oncology [facility] Other 07-08-2022 History general Narrative - Reported* Type Description Date Medical History DM II Medical HistoryCVA OF CEREBELLUMMedical HistoryCOVID [id number] History HypertensionMedical HistoryKidney stonesMedical HistoryMultiple myelomaMedical HistoryHistory of kidney stonesMedical HistoryHyperlipemiaMedical HistoryStage 4 chronic kidney diseaseMedical HistoryAnemia in CKD (chronic kidney disease) Medical HistoryNephrolithiasisMedical HistoryAsymptomatic proteinuriaMedical HistorySecondary hyperparathyroidismMedical HistoryA-FIBSurgical History cholecystectomySurgical Historytotal rsyuvumphxor6833Lmaexngq History hemorrhoidectomySurgical HistoryCHEMO/2015Surgical Historylithotripsey03/09/18 Surgical HzqhgofVtmawdbsvrqv3-35-7532Cefpxwyu Historyleft kidney -57-34 Surgical HistoryLITHOTRIPSEY01/24/2020Surgical HistorySTENT REMOVAL03/03/2021 Surgical HistoryKIDNEY STONES X 3 WITH LASER02/19/2021Hospitalization HistorySEE ABOVE SURGERYHospitalization HistoryFR[facility]-DEHYDRATION/[id number] JmovoziZYGXK00/2021 [facility] Other 07-08-2022 History general Narrative - Reported* Type Description Date Medical History DM II Medical HistoryCVA OF CEREBELLUMMedical HistoryCOVID [id number] History HypertensionMedical HistoryKidney stonesMedical HistoryMultiple myelomaMedical HistoryHistory of kidney stonesMedical HistoryHyperlipemiaMedical HistoryStage 4 chronic kidney diseaseMedical HistoryAnemia in CKD (chronic kidney disease) Medical HistoryNephrolithiasisMedical HistoryAsymptomatic proteinuriaMedical HistorySecondary hyperparathyroidismMedical HistoryA-FIBMedical HistoryVERTIGO PER [facility] 06/19/2023Surgical HistorycholecystectomySurgical History total fjykrgaxjirh1080Vcaeopbu HistoryhemorrhoidectomySurgical HistoryCHEMO 06/2016Surgical Historylithotripsey03/09/18urgical WgjayqtTjtzkestggwa3-86-7088 Surgical Historyleft kidney cedob7-84-63Fdilvhdk HistoryLITHOTRIPSEY01/24/2020 Surgical HistorySTENT REMOVAL03/03/2021urgical HistoryKIDNEY STONES X 3 WITH LASER02/19/2021Hospitalization HistorySEE ABOVE SURGERYHospitalization History [facility]-DE[facility]/[id number] XqkdrjhFLFRR01/2021 [facility] Other 05-31-2022 Progress note Author Misti [facility]Pro[facility] April 13, 2022 11:35amNote Date/TimeMay 2021 9:33[facility] [place] [address] Hem/Onc Follow Up Note - OP Signed Patient: Hailee Trivedi MR#: [id number] : 1940 Acct:[id number] Age/Sex: 81 / F Type: REG RCR [...] neurologist. Head CT done March 2022 at [facility] without new/acute findings. May suggest brain MRI if no other etiologies identified Follow Up Instructions: Irma today and continue every 6 weeks myeloma labs on irma days here cbc, cmp at [facility] prior to treatment follow-up with Dr. Quiroga in 3mo - History of Present Illness Chief Complaint: Patient is here today for 2 month follow up visit for multiple myeloma. 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 [...] been trying to transfer her care to [place] [facility] clinic but they are not up [...] x 1 week, sees neurology (followed at [facility]) who have ruled out stroke, CT [...] 6 mg and cyclophosphamide 300 mg IV alkmfd7408/15/2015, developed grade 2 anemia, fatigue and grade [...] for coordination of care (as documented) and uloq-nn-fckw counseling of patient and/or family. [facility] - Medical History Medical History: Medical History [...] 01/19/22 09:00 KB (Rec: 01/19/22 09:01 KB [id number]) Distress Screening Distress screening follow up: Will follow with patient for any needs at next visit. Anxious about making next appointment time. - Lab Results Diagram of Most Recent CBC and CMP 04/08/22 13:20 04/08/22 13:20 Labs - Last 7 Days 04/08/22 13:20: Serum Total Protein 5.9 L, Albumin (Send Out) 3.6, Globulin (PEP) 2.3, Albumin/Globulin (PEP) 1.6, Eesjx-4-Rzpvlpdkg 0.1, Ecfmo-5-Joupbbufy 0.8, Beta Globulins 0.7, Gamma Globulins 0.6, M-Krystian Not observed, PEP Note , Free Lemitar LC, Quant 17.7, Free Lambda LC, Quant 10.0, Free Lemitar/Lambda Ratio 1.77 H 04/08/22 13:20: PHA Creatinine Clear 21.38, Sodium 136, Potassium 4.6, Chloride 107, Carbon Kdnplhf73.8 L, BUN 27 H, Creatinine 2.35 H, [...] % (Auto) 54.1, Lymph % (Auto) 38.9, [place] % (Auto) 5.8, Eos % (Auto) 0.7, Baso % (Auto) 0.5, Neut # (Auto) 4.6, Lymph # (Auto) 3.3, [place] #(Auto) 0.5, Eos# (Auto) 0.1, Baso # [...] <Electronically signed by RAMAKRISHNA Connolly> 04/13/22 1135 [facility] Work Phone: [phone]) [phone] Hospital Discharge instructions Patient Education 03/08/2022 11:37:40 [...] 10/31/2006 Document Revised: 07/20/2019 Document Reviewed: 09/30/2017 [employer] Patient Education 2020 [employer] 03/08/2022 11:37:40 Calorie Counting for Weight [...] 10/31/2006 Document Revised: 07/20/2019 Document Reviewed: 09/30/2017 [employer] Patient Education 2020 [employer]. 03/08/2022 11:37:32 Kidney Stones, Zyqh-ko-Lwim Kidney Stones Kidney stones are rock-like masses [...] Follow these instructions at home: Medicines Take icwz-mqm-guzlygb and prescription medicines only as told by [...] 04/18/2009 Document Revised: 03/18/2020 Document Reviewed: 03/18/2020 [employer] Patient Education 2019 [employer]. Follow Up Care 09/04/2021 09:56:37 With:XAVIER VELAZQUEZ, Tyree Rivers, URL Address: [facility] [address], [place] [address]- [phone] When:01/08/2023 Comments:10 month carlene MARAVILLA [facility] 03-07-2022 Progress note Author Claire Choi [facility] January 18, 2022 9:58amNote Date/TimeMar2021 9:42am[facility] [address] [address] Hem/Onc Follow Up Note - OP Signed Patient: Hailee Trivedi MR#: [id number] : 1940 Acct:[id number] Age/Sex: 81 / F Type: REG RCR [...] prior to f/u. 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 - History of Present Illness Chief Complaint: [...] 6 mg and cyclophosphamide 300 mg IV qtbhqp3808/15/2015, developed grade 2 anemia, fatigue and grade [...] for coordination of care (as documented) and segl-lp-egce counseling of patient and/or family. [facility] - Medical History Medical History: Medical History [...] Sodium 136, Potassium 4.6, Chloride 106, Carbon Safxann14.2 L, BUN 26 H, Creatinine 2.37 H, [...] % (Auto) 59.4, Lymph % (Auto) 31.4, [place] % (Auto) 7.2, Eos % (Auto) 0.9, Baso % (Auto) 1.1, Neut # (Auto) 5.4, Lymph # (Auto) 2.8, [place] # (Auto) 0.7, Eos# (Auto) 0.1, Baso [...] by Claire Choi II, DO> 01/18/22 0958 [facility] Work Phone: [phone]) [phone] Evaluation note* Encounter Date Diagnosis Assessment Notes [...] (ICD-10 - C90.00) Followup with Dr. Bello [facility] Other 02-02-2022 Progress note Author Hunter Bello [facility] December 16, 2021 1:18pmNote Date/TimeFebruary 2021 1:17pm[facility] [place] [address] Hem/Onc Follow Up Note - OP Signed Patient: Hailee Trivedi MR#: [id number] : 1940 Acct:[id number] Age/Sex: 81 / F Type: REG RCR [...] 6 mg and cyclophosphamide 300 mg IV ichhaf6508/15/2015, developed grade 2 anemia, fatigue and grade [...] will be to transfer her care to [place] [facility] when [facility] is ready [...] Depressed Mood [-], Anxiety [-], Stressed [-] [facility] - Medical History Medical History: Medical History [...] therapy. We will transfer her care to [place] when they are ready. o Continue Daratumumab [...] for coordination of care (as documented) and fimw-yl-hihq counseling of patient and/or family. Dictated By: Hunter Bello MD DD/ 15 Signed By: <Electronically signed by MD Hunter Bello> 12/16/21 1318 [facility] Work Phone: [phone]) [phone] Progress note Author Hunter Bello [facility] October 06, 2021 10:02amNote Date/TimeNov2020 9:58[facility] at [address] [address] Hem/Onc Follow Up Note - OP Signed Patient: Hailee Trivedi MR#: [id number] : 1940 Acct:[id number] Age/Sex: 81 / F Type: REG RCR [...] been trying to transfer her care to [place] [facility] clinic but they are not up [...] 6 mg and cyclophosphamide 300 mg IV mjsncg9008/15/2015, developed grade 2 anemia, fatigue and grade [...] will be to transfer her care to [place] [facility] when [facility] is ready 2. VitB12 injections, monthly, [...] Depressed Mood [-], Anxiety [-], Stressed [-] [facility] - Medical History Medical History: Medical History [...] Sodium 136, Potassium 4.7, Chloride 104, Carbon Iyajquv51.5 L, BUN 38 H, Creatinine 2.55 H, [...] % (Auto) 57.1, Lymph % (Auto) 34.7, [place] % (Auto) 6.1, Eos % (Auto) 0.8, Baso % (Auto) 1.3, Neut # (Auto) 5.1, Lymph # (Auto) 3.1, [place] # (Auto) 0.5, Eos# (Auto) 0.1, Baso [...] therapy. We will transfer her care to [place] when they are ready. o Continue Daratumumab [...] for coordination of care (as documented) and hjxv-xt-hxls counseling of patient and/or family. Dictated By: Hunter Bello MD DD/ 0957 Signed By: <Electronically signed by MD Hunter Bello> 10/06/21 1002 [facility] Work Phone: [phone]) 610-818011-17-2021 Evaluation note* Encounter Date Diagnosis Assessment Notes [...] (ICD-10 - C90.00) Followup with Dr. Bello [facility] Other 10-26-2021 Progress note Author Hunter Bello [facility] September 08, 2021 11:19amNote Date/TimeOctober 2020 11:[facility] [address] [address] Hem/Onc Follow Up Note - OP Signed Patient: Hailee Trivedi MR#: [id number] : 1940 Acct:[id number] Age/Sex: 81 / F Type: REG RCR [...] and then transferring her care to the [place] onc[facility] clinic. She will be getting monthly [...] 6 mg and cyclophosphamide 300 mg IV csjtpm4308/15/2015, developed grade 2 anemia, fatigue and grade [...] will be to transfer her care to [place] [facility]. 2. VitB12 injections, monthly, switched [...] Depressed Mood [-], Anxiety [-], Stressed [-] [facility] - Medical History Medical History: Medical History [...] Amer) 24, Est GFR (Non-Af Amer) 20, Hxznisi515 H, Uric Acid 4.8, Calcium 8.9, Phosphorus 3.7, Magnesium 2.0, Albumin 3.4, 25-OH Vitamin D Total 38.5, PTH Intact 137.7 H 09/07/21 13:15: Corrected WBC 9.0, Uncorrected WBC Count 9.0, RBC 3.92, Hgb 12.6, Hct 37.6, MCV 95.9, MCH 32.2, MCHC 33.5, RDW 13.7, Plt Count 185, MPV 9.4,Neut % (Auto) 59.8, Lymph % (Auto) 31.4, [place] % (Auto) 7.0, Eos % (Auto) 1.2, Baso % (Auto) 0.6, Neut # (Auto) 5.4, Lymph # (Auto) 2.8, [place] # (Auto) 0.6, Eos# (Auto) 0.1, Baso [...] therapy See me in 1 month in [place] for monthly daratumumab. (2) B12 deficiency anemia [...] for coordination of care (as documented) and kznn-gt-wlyg counseling of patient and/or family. Dictated By: Hunter Bello MD DD/ 1116 Signed By: <Electronically signed by MD Hunter Bello> 09/08/21 1113 [facility] Work Phone: [phone]) [phone] History of Present illness Narrative* Patient is [...] assessment at [facility], which was negative. Couple of years ago. [...] of change in cardiac status or symptoms [facility] [address] DO Work Phone: [phone] Progress note Author Louis Bradley [facility] June 16, 2021 9:35amNote Date/TimeAugust 2020 9:29[facility] [place] [address] Hem/Onc Follow Up Note - OP Signed Patient: Hailee Trivedi MR#: [id number] : 1940 Acct:[id number] Age/Sex: 81 / F Type: REG RCR [...] M-spike of 0.2 g/dL with an IgG Lemitar specificity. She hadn't had a previous SPEP [...] 6 mg and cyclophosphamide 300 mg IV nkdzxg7108/15/2015, developed grade 2 anemia, fatigue and grade [...] Depressed Mood [-], Anxiety [-], Stressed [-] [facility] - Medical History Medical History: Medical History [...] % (Auto) 34.5 % (.) 06/09/21 09:40 [place] % (Auto) 5.6 % (.) 06/09/21 09:40 Eos % (Auto) 1.1 % (.) 06/09/21 09:40 Baso % (Auto) 0.6 % (.) 06/09/21 09:40 Neut # (Auto) 4.4 x10E3/uL (1.8-7.7) 06/09/21 09:40 Lymph # (Auto) 2.6 x10E3/uL (1.00-4.8) 06/09/21 09:40 [place] # (Auto) 0.4 x10E3/uL (0.0-0.8) 06/09/21 09:40 [...] 09:40 Albumin/Globulin (PEP) 1.3 (0.7-1.7) 06/09/21 09:40 Gurzq-9-Xmudvlwbz 0.2 g/dL (0.0-0.4) 06/09/21 09:40 Cluwz-3-Ighqxbjme 0.9 g/dL (0.4-1.0) 06/09/21 09:40 Beta Globulins [...] Urine pH (5.0-9.0) 02/24/21 12:05 Ur Specific [place] 1.009 (1.001-1.030) 02/24/21 12:05 Urine Protein mg/dL [...] 125 mg/24 hr (30-150) 06/09/21 09:28 U Kqlgu-1-Laghmuff 4.3 % (.) 06/09/21 09:28 U Ldggf-2-Expjpfph 16.0 % (.) 06/09/21 09:28 U Beta [...] Ab 0.9 AU/mL (0.0-1.1) 02/28/19 11:21 Free Lemitar LC, Quant 20.1 mg/L (3.3-19.4) H 06/09/21 09:40 Free Lambda LC, Quant 11.9 mg/L (5.7-26.3) 06/09/21 09:40 Free Lemitar/Lambda Ratio 1.69 (0.26-1.65) H 06/09/21 09:40 Assessment [...] for coordination of care (as documented) and tsqg-yi-yqyo counseling of patient and/or family. Dictated By: Louis Bradley MD DD/ 7 Signed By: <Electronically signed by Louis Bradley MD> 06/16/2135 [facility] Work Phone: [phone]) [phone] Progress note Author Louis Bradley [facility] May 19, 2021 2:08pmNote Date/TimeJuly 2020 1:50pm[facility] [place] [address] Hem/Onc Follow Up Note - OP Signed Patient: Hailee Trivedi MR#: [id number] : 1940 Acct:[id number] Age/Sex: 81 / F Type: REG RCR [...] 6 mg and cyclophosphamide 300 mg IV vcafmc3608/15/2015, developed grade 2 anemia, fatigue and grade [...] Depressed Mood [-], Anxiety [-], Stressed [-] [facility] - Medical History Medical History: Medical History [...] % (Auto) 34.2 % (.) 04/14/21 11:10 [place] % (Auto) 5.7 % (.) 04/14/21 11:10 Eos % (Auto) 1.1 % (.) 04/14/21 11:10 Baso % (Auto) 0.6 % (.) 04/14/21 11:10 Neut # (Auto) 5.0 x10E3/uL (1.8-7.7) 04/14/21 11:10 Lymph # (Auto) 2.9 x10E3/uL (1.00-4.8) 04/14/21 11:10 [place] # (Auto) 0.5 x10E3/uL (0.0-0.8) 04/14/21 11:10 [...] Urine pH (5.0-9.0) 02/24/21 12:05 Ur Specific [place] 1.009 (1.001-1.030) 02/24/21 12:05 Urine Protein mg/dL [...] Ab 0.9 AU/mL (0.0-1.1) 02/28/19 11:21 Free Lemitar LC, Quant 17.8 mg/L (3.3-19.4) 04/14/21 11:10 Free Lambda LC, Quant 9.2 mg/L (5.7-26.3) 04/14/21 11:10 Free Lemitar/Lambda Ratio 1.93 (0.26-1.65) H 04/14/21 11:10 Assessment [...] for coordination of care (as documented) and vmfy-sa-otyt counseling of patient and/or family. Dictated By: Louis Bradley MD DD/ 1349 Signed By: <Electronically signed by Louis Bradley MD> 05/19/21 1408 [facility] Work Phone: [phone]) 321-671305-11-2021 Progress note Author Margarito Buenrostro [facility] March 24, 2021 12:36pmNote Date/TimeMay 2020 12:33pm[facility] [place] [address] Hem/Onc Follow Up Note - OP Signed Patient: Hailee Trivedi MR#: [id number] : 1940 Acct:[id number] Age/Sex: 80 / F Type: REG RCR [...] 6 mg and cyclophosphamide 300 mg IV lntwek0608/15/2015, developed grade 2 anemia, fatigue and grade [...] - Last 7 Days 03/17/21 13:30: Free Lemitar LC, Quant 28.8 H, Free Lambda LC, Quant 13.2, Free Lemitar/Lambda Ratio 2.18 H 03/17/21 13:30: Corrected WBC 6.1, Uncorrected WBC Count 6.1, RBC 3.56 L, Hgb 11.7 L, Hct 34.3, MCV96.4, MCH 32.8, MCHC 34.0, RDW 13.7, Plt Count 227, MPV 10.2, Neut % (Auto) 40.5, Lymph % (Auto) 47.8, [place] % (Auto) 10.6, Eos % (Auto) 0.6, Baso % (Auto) 0.5, Neut # (Auto) 2.5, Lymph # (Auto) 2.9, [place] # (Auto) 0.6, Eos # (Auto) 0.0, [...] for coordination of care (as documented) and zmkg-ra-crmn counseling of patient and/or family. Dictated By: Margarito Buenrostro MD DD/ 1232 Signed By: <Electronically signed by Margarito Buenrostro MD> 03/24/21 1236 [facility] Work Phone: [phone]) [phone] Progress note Author Margarito Buenrostro [facility] February 06, 2021 10:35amNote Date/TimeMarch 2020 10:32[facility] at [address] [address] Hem/Onc Follow Up Note - OP Signed Patient: Hailee Trivedi MR#: [id number] : 1940 Acct:[id number] Age/Sex: 80 / F Type: REG RCR [...] 6 mg and cyclophosphamide 300 mg IV pyucuk0108/15/2015, developed grade 2 anemia, fatigue and grade [...] Sodium 139, Potassium 4.0, Chloride 107, Carbon Blgidqc68.3 L, BUN 24 H, Creatinine 2.44 H, [...] % (Auto) 64.7, Lymph % (Auto) 27.2, [place] % (Auto) 6.2, Eos % (Auto) 1.5, Baso % (Auto) 0.4, Neut # (Auto) 4.7, Lymph # (Auto) 2.0, [place] # (Auto) 0.5, Eos# (Auto) 0.1, Baso [...] for coordination of care (as documented) and emfd-uf-rqpb counseling of patient and/or family. Dictated By: Margarito Buenrostro MD DD/ 1031 Signed By: <Electronically signed by Margarito Buenrostro MD> 02/06/21 1038 [facility] Work Phone: [phone]) [phone] Progress note Author Margarito Buenrostro [facility] January 08, 2021 10:17amNote Date/TimeFebruary 2020 10:14[facility] at [address] [address] Hem/Onc Follow Up Note - OP Signed Patient: Hailee Trivedi MR#: [id number] : 1940 Acct:[id number] Age/Sex: 80 / F Type: REG RCR [...] 6 mg and cyclophosphamide 300 mg IV dejxyx2808/15/2015, developed grade 2 anemia, fatigue and grade [...] plan to see in 4 weeks, repeat Lemitar/lambda ratio in6-8 weeks. -Continue Acyclovir 400mg bid [...] for coordination of care (as documented) and zboz-gj-ixnu counseling of patient and/or family. Dictated By: Margarito Buenrostro MD DD/ 1013 Signed By: <Electronically signed by Margarito Buenrostro MD> 01/08/21 1017 [facility] Work Phone: 1([phone] 418-226401-19-2021 Progress note Author Margarito Buenrostro [facility] December 02, 2020 12:29pmNote Date/TimeJan2020 12:[facility] [place] [id number] Hem/Onc Follow Up Note - OP Signed Patient: Hailee Trivedi MR#: [id number] : 1940 Acct:[id number] Age/Sex: 80 / F Type: REG RCR [...] 6 mg and cyclophosphamide 300 mg IV xmlfyr6908/15/2015, developed grade 2 anemia, fatigue and grade [...] plan to start in 4 weeks, repeat Lemitar/lambda ratio in 6weeks. -Continue Acyclovir 400mg bid [...] for coordination of care (as documented) and sovr-xt-puiz counseling of patient and/or family. Dictated By: Margarito Buenrostro MD DD/ 25 Signed By: <Electronically signed by Margarito Buenrostro MD> 12/02/20 1229 [facility] Work Phone: [phone] 295-705612-22-2020 Progress note Author Margarito Buenrostro [facility] November 04, 2020 1:30pmNote Date/TimeDecember 2019 1:[facility] [place] [address] Hem/Onc Follow Up Note - OP Signed Patient: Hailee Trivedi MR#: [id number] : 1940 Acct:[id number] Age/Sex: 80 / F Type: REG RCR [...] 6 mg and cyclophosphamide 300 mg IV wshdyo0408/15/2015, developed grade 2 anemia, fatigue and grade [...] - Last 7 Days 10/28/20 11:11: Free Lemitar LC, Quant , Free Lambda LC, Quant , Free Lemitar/LambdaRatio Order Lemitar Free K+L Assessment and Plan (1) Multiple [...] to treatment, see in 4 weeks. Her Lemitar/lambda ratio was not drawn, will draw today. [...] for coordination of care (as documented) and xxoc-rt-ifpi counseling of patient and/or family. Dictated By: Margarito Buenrostro MD DD/ 1317 Signed By: <Electronically signed by Margarito Buenrostro MD> 11/04/20 1330 [facility] Work Phone: [phone] Progress note Author Margarito Buenrostro [facility] October 07, 2020 10:20amNote Date/TimeNov2019 10:18[facility] [place] [address] Hem/Onc Follow Up Note - OP Signed Patient: Hailee Trivedi MR#: [id number] : 1940 Acct:[id number] Age/Sex: 80 / F Type: REG RCR [...] 6 mg and cyclophosphamide 300 mg IV wpdzfx8008/15/2015, developed grade 2 anemia, fatigue and grade [...] see in 4 weeks. Plan to repeat Lemitar/lambda ratio in 3 weeks. -Continue Acyclovir 400mg [...] patient was for coordination of care(as documented) kzalptg-bp-zcqx counseling of patient and/or family. Dictated By: Margarito Buenrostro MD DD/ 1017 Signed By: <Electronically signed by Margarito Buenrostro MD> 10/07/20 1020 [facility] Work Phone: [phone] Progress note Author Margarito Buenrostro [facility] September 09, 2020 10:20amNote Date/TimeOct2019 10:18[facility] [place] [address] Hem/Onc Follow Up Note - OP Signed Patient: Hailee Trivedi MR#: [id number] : 1940 Acct:[id number] Age/Sex: 80 / F Type: REG RCR [...] 6 mg and cyclophosphamide 300 mg IV ewyqgk6708/15/2015, developed grade 2 anemia, fatigue and grade [...] - Last 7 Days 09/01/20 10:35: Free Lemitar LC, Quant 19.8 H, Free Lambda LC, Quant 11.2, Free Lemitar/Lambda Ratio 1.77 H Assessment and Plan (1) [...] see in 4 weeks. Plan to repeat Lemitar/lambda ratio in 7 weeks. -Continue Acyclovir 400mg [...] patient was for coordination of care(as documented) wazvauw-zj-nmjb counseling of patient and/or family. Dictated By: Margarito Buenrostro MD DD/ 1017 Signed By: <Electronically signed by Margarito Buenrostro MD> 09/09/20 1020 [facility] Work Phone: [phone] Progress note Author Margarito Buenrostro [facility] August 12, 2020 11:28amNote Date/TimeSeptember 2019 11:25[facility] [place] [id number] Hem/Onc Follow Up Note - OP Signed Patient: Hailee Trivedi MR#: [id number] : 1940 Acct:[id number] Age/Sex: 80 / F Type: REG RCR [...] 6 mg and cyclophosphamide 300 mg IV azcaxd7408/15/2015, developed grade 2 anemia, fatigue and grade [...] see in 4 weeks. Plan to repeat Lemitar/lambda ratio in 3 weeks. -Continue Acyclovir 400mg [...] patient was for coordination of care(as documented) fosnfxd-py-yqjj counseling of patient and/or family. Dictated By: Margarito Buenrostro MD DD/ Signed By: <Electronically signed by Margarito Buenrostro MD> 08/12/20 1128 [facility] Work Phone: [phone] 392-868509-01-2020 Progress note Author Margarito Buenrostro [facility] July 15, 2020 10:42amNote Date/TimeSept2019 10:40[facility] [place] [address] Hem/Onc Follow Up Note - OP Signed Patient: Hailee Trivedi MR#: [id number] : 1940 Acct:[id number] Age/Sex: 80 / F Type: REG RCR [...] 6 mg and cyclophosphamide 300 mg IV caqemk2608/15/2015, developed grade 2 anemia, fatigue and grade [...] - Last 7 Days 07/07/20 11:10: Free Lemitar LC, Quant 18.5, Free Lambda LC, Quant 11.7, Free Lemitar/Lambda Ratio 1.58 Assessment and Plan (1) Multiple [...] see in 4 weeks. Plan to repeat Lemitar/lambda ratio in 8 weeks. -Continue Acyclovir 400mg [...] for coordination of care (as documented) and ezgj-qb-vtzq counseling of patient and/or family. Dictated By: Margarito Buenrostro MD DD/ 1039 Signed By: <Electronically signed by Margarito Buenrostro MD> 07/15/20 1042 [facility] Work Phone: [phone] 230-859208-04-2020 Progress note Author Margarito Buenrostro [facility] June 17, 2020 10:25amNote Date/TimeAugust 2019 10:22[facility] [place] [address] Hem/Onc Follow Up Note - OP Signed Patient: Hailee Trivedi MR#: [id number] : 1940 Acct:[id number] Age/Sex: 80 / F Type: REG RCR [...] 6 mg and cyclophosphamide 300 mg IV wctunl5508/15/2015, developed grade 2 anemia, fatigue and grade [...] see in 4 weeks. Plan to repeat Lemitar/lambda ratio in 4 weeks. -Continue Acyclovir 400mg [...] patient was for coordination of care(as documented) mmlbtqw-qn-imsw counseling of patient and/or family. Dictated By: Margarito Buenrostro MD DD/ 1022 Signed By: <Electronically signed by Margarito Buenrostro MD> 06/17/20 1025 [facility] Work Phone: [phone] Progress note Author Margarito Buenrostro [facility] May 20, 2020 10:10amNote Date/TimeJuly 2019 10:00[facility] at [address] [address] Hem/Onc Follow Up Note - OP Signed Patient: Hailee Trivedi MR#: [id number] : 1940 Acct:[id number] Age/Sex: 80 / F Type: REG RCR [...] 6 mg and cyclophosphamide 300 mg IV wrqdfu4708/15/2015, developed grade 2 anemia, fatigue and grade [...] - Last 7 Days 05/13/20 10:09: Free Lemitar LC, Quant 18.5, Free Lambda LC, Quant 9.6, Free Lemitar/Lambda Ratio 1.93 H 05/13/20 10:09: PHA Creatinine Clear 20.4226666142, Sodium 138, Potassium 4.6, Chloride 112, CarbonDioxide [...] Neut % (Auto) 59.3,Lymph % (Auto) 31.6, [place] % (Auto) 7.5, Eos % (Auto) 1.1, Baso % (Auto) 0.5, Neut # (Auto) 4.6, Lymph # (Auto) 2.4, [place] # (Auto) 0.6, Eos # (Auto) 0.1, [...] see in 4 weeks. Plan to repeat Lemitar/lambda ratio in 8 weeks. Wewill update B12 [...] for coordination of care (as documented) and pukk-tm-ieny counseling of patient and/or family. Dictated By: Margarito Buenrostro MD DD/ 0958 Signed By: <Electronically signed by Margarito Buenrostro MD> 05/20/20 1010 [facility] Work Phone: [phone] Progress note Author Carol Younger [facility] April 16, 2020 10:49amNote Date/TimeJun2019 9:[facility] [place] [address] Hem/Onc Follow Up Note - OP Signed Patient: Hailee Trivedi MR#: [id number] : 1940 Acct:[id number] Age/Sex: 79 / F Type: REG RCR [...] 6 mg and cyclophosphamide 300 mg IV xgxmbw4408/15/2015, developed grade 2 anemia, fatigue and grade [...] - Last 7 Days 04/09/20 09:35: Free Lemitar LC, Quant 16.6, Free Lambda LC, Quant 9.8, Free Lemitar/Lambda Ratio 1.69 H 04/09/20 09:35: PHA Creatinine Clear 19.6346821926, Sodium 138, Potassium 4.6, Chloride 111, CarbonDioxide [...] Neut % (Auto) 62.6,Lymph % (Auto) 29.5, [place] % (Auto) 5.8,Eos % (Auto) 1.5, Baso % (Auto) 0.6, Neut # (Auto) 4.2, Lymph # (Auto) 2.0, [place] # (Auto) 0.4, Eos # (Auto) 0.1, [...] The patient is also followed by nephrology -Lemitar/lambda ratio mild improvement 1.69 -Continue Acyclovir 400mg [...] for coordination of care (as documented) and emrf-sd-jsfe counseling of patient and/or family. Dictated By: Carol Younger APRN DD/ 0909 Signed By: <Electronically signed by RAMAKRISHNA Younger> 04/16/20 5089 [facility] Work Phone: [phone] Progress note Author Margarito Buenrostro [facility] March 19, 2020 8:55amNote Date/TimeMay 2019 8:37[facility] [address] [address] Hem/Onc Follow Up Note - OP Signed Patient: Hailee Trivedi MR#: [id number] : 1940 Acct:[id number] Age/Sex: 79 / F Type: REG RCR [...] 6 mg and cyclophosphamide 300 mg IV iywpvk3908/15/2015, developed grade 2 anemia, fatigue and grade [...] for coordination of care (as documented) and axcl-vx-orlp counseling of patient and/or family. Dictated By: Margarito Buenrostro MD DD/ Signed By: <Electronically signed by Margarito Buenrostro MD> 03/19/20 0855 [facility] Work Phone: [phone] Progress note Author Margarito Buenrostro [facility] January 09, 2020 9:15amNote Date/TimeFebruary 2019 9:12[facility] [place] [id number] Hem/Onc Follow Up Note - OP Signed Patient: Hailee Trivedi MR#: [id number] : 1940 Acct:[id number] Age/Sex: 79 / F Type: REG RCR [...] 6 mg and cyclophosphamide 300 mg IV hdfzom5508/15/2015, developed grade 2 anemia, fatigue and grade [...] Neut % (Auto) 64.3,Lymph % (Auto) 25.2, [place] % (Auto) 7.0, Eos % (Auto) 3.0, Baso % (Auto) 0.5, Neut # (Auto) 4.3, Lymph # (Auto) 1.7, [place] # (Auto) 0.5, Eos # (Auto) 0.2, Baso# (Auto) 0.0, Nucleated RBC % (auto) 0.0 01/03/20 09:10: Free Lemitar LC, Quant 17.3, Free Lambda LC, Quant 10.2, Free Lemitar/Lambda Ratio 1.70H Assessment and Plan (1) Multiple [...] and sustained response. -Labs adequate to treat, Lemitar light chain level slightly trend upwards, but still stable, will proceed to Daratumumab today, will see her back in 6 weeks, plan to repeat K/L light chains in 5 weeks ahead of time, if Lemitar light chain continue to go up, plan [...] for coordination of care (as documented) and bmxz-rb-saze counseling of patient and/or family. Dictated By: Margarito Buenrostro MD DD/ 0 Signed By: <Electronically signed by Margarito Buenrostro MD> 01/09/20914 [facility] Work Phone: [phone] Progress note Author Margarito Buenrostro [facility] November 28, 2019 10:50amNote Date/TimeJanuary 2019 9:43[facility] at [address] [address] Hem/Onc Follow Up Note - OP Signed Patient: Hailee Trivedi MR#: [id number] : 1940 Acct:[id number] Age/Sex: 79 / F Type: REG RCR [...] 6 mg and cyclophosphamide 300 mg IV wlknkl3208/15/2015, developed grade 2 anemia, fatigue and grade [...] - Last 7 Days 11/20/19 14:30: Free Lemitar LC, Quant 14.5, Free Lambda LC, Quant 7.7, Free Lemitar/Lambda Ratio 1.88 H Assessment and Plan (1) [...] and sustained response. -Labs adequate to treat, Lemitar light chain level slightly trend upwards, will proceed to Daratumumab today, will see her back in 6 weeks, plan to repeat K/L light chains in 5 weeks ahead of time, if Lemitar light chain continue to go up, plan [...] for coordination of care (as documented) and azlh-tr-rxhb counseling of patient and/or family. Dictated By: Margarito Buenrostro MD DD/ 0943 Signed By: <Electronically signed by Margarito Buenrostro MD> 11/28/19 5335 [facility] Work Phone: [phone] Progress note Author Margarito Buenrostro [facility] October 17, 2019 9:37amNote Date/TimeDece2018 9:30[facility] [place] [address] Hem/Onc Follow Up Note - OP Signed Patient: Hailee Trivedi MR#: [id number] : 1940 Acct:[id number] Age/Sex: 79 / F Type: REG RCR Copies to: Curt Clark MD~ Subjective Date/Time of Service: Date of Service: 10/17/2019 Time of Service: 09:26 Chief Complaint: Follow up appt prior to treatment doing well HPI: Hailee presents for routine follow up; prior to Daratumumab. Patient reports left leg sudden onset weakness last Tuesday while she was drawing labs at [facility]. She elected to not stay. [...] 6 mg and cyclophosphamide 300 mg IV kftozy9208/15/2015, developed grade 2 anemia, fatigue and grade [...] for coordination of care (as documented) and wxrf-or-iirp counseling of patient and/or family. Dictated By: Margarito Buenrostro MD DD/ 5 Signed By: <Electronically signed by Margarito Buenrostro MD> 10/17/1937 [facility] Work Phone: [phone] Progress note Author Margarito Buenrostro [facility] July 25, 2019 8:31amNote Date/TimeSeptember 2018 8:30[facility] [place] [address] Hem/Onc Follow Up Note - OP Signed Patient: Hailee Trivedi MR#: [id number] : 1940 Acct:[id number] Age/Sex: 79 / F Type: REG RCR [...] 6 mg and cyclophosphamide 300 mg IV ouufjr7208/15/2015, developed grade 2 anemia, fatigue and grade [...] - Last 7 Days 07/18/19 08:54: Free Lemitar LC, Quant 16.4, Free Lambda LC, Quant 10.9, Free Lemitar/Lambda Ratio 1.50 07/18/19 08:54: PHA Creatinine Clear 23.2925367080, Sodium 139, Potassium 4.6, Chloride 110, CarbonDioxide [...] % (Auto) 64.4, Lymph % (Auto) 27.6, [place] % (Auto) 6.8,Eos % (Auto) 0.7, Baso % (Auto) 0.5, Neut # (Auto) 4.2, Lymph # (Auto) 1.8, [place] # (Auto) 0.4, Eos # (Auto) 0.0,Baso [...] for coordination of care (as documented) and tjmh-is-nape counseling of patient and/or family. Dictated By: Margarito Buenrostro MD DD/ 9 Signed By: <Electronically signed by Margarito Buenrostro MD> 07/25/19830 [facility] Work Phone: [phone] Progress note Author Margarito Buenrostro [facility] June 13, 2019 8:37amNote Date/TimeJuly 2018 8:[facility] [place] [address] Hem/Onc Follow Up Note - OP Signed Patient: Hailee Trivedi MR#: [id number] : 1940 Acct:[id number] Age/Sex: 79 / F Type: REG RCR Copies to: Curt Clark MD~ Subjective Date/Time of Service: Date of Service: 06/13/2019 Time of Service: 08:34 Chief Complaint: Follow up appt prior to treatment 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 [...] CVA 2018. SOCIAL HISTORY: Lives with in [place]. HPI: Hailee presents for routine follow up; [...] 6 mg and cyclophosphamide 300 mg IV zqxrox0308/15/2015, developed grade 2 anemia, fatigue and grade [...] for coordination of care (as documented) and kyqa-bz-pdlm counseling of patient and/or family. Dictated By: Margarito Buenrostro MD DD/ 3 Signed By: <Electronically signed by Margarito Buenrostro MD> 06/13/1937 [facility] Work Phone: [phone] Progress note Author Margarito Buenrostro [facility] May 02, 2019 8:38amNote Date/TimeJune 2018 8:33[facility] [place] [address] Hem/Onc Follow Up Note - OP Signed Patient: Hailee Trivedi MR#: [id number] : 1940 Acct:[id number] Age/Sex: 78 / F Type: REG RCR Copies to: Curt Clark MD~ Subjective Date/Time of Service: Date of Service: 05/02/2019 Time of Service: 08:32 Chief Complaint: Follow up appt prior to treatment no new concerns 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 [...] CVA 2017. SOCIAL HISTORY: Lives with in [place]. HPI: Hailee presents for routine follow up; [...] 6 mg and cyclophosphamide 300 mg IV umjcvb4008/15/2015, developed grade 2 anemia, fatigue and grade [...] - Last 7 Days 04/25/19 11:05: Free Lemitar LC, Quant 16.9, Free Lambda LC, Quant 10.8, Free Lemitar/Lambda Ratio 1.56 04/25/19 11:05: WBC 6.5, Corrected WBC 6.5, RBC 3.81, Hgb 12.2, Hct 36.4, MCV 95.7, MCH 32.1, MCHC 33.6, RDW 13.7, Plt Count 182, MPV 9.9, Neut % (Auto) 65.0,Lymph % (Auto) 26.9, [place] % (Auto) 7.0, Eos % (Auto) 0.6, Baso % (Auto) 0.5, Neut # (Auto) 4.2, Lymph # (Auto) 1.8, [place] # (Auto) 0.5, Eos # (Auto) 0.0, [...] for coordination of care (as documented) and cvjh-qc-khcz counseling of patient and/or family. Dictated By: Margarito Buenrostro MD DD/ 1 Signed By: <Electronically signed by Margarito Buenrostro MD> 05/02/19 0838 [facility] Work Phone: [phone] Progress note Author Margarito Buenrostro [facility] March 07, 2019 10:22amNote Date/TimeApril 2018 10:19[facility] [place] [address] Hem/Onc Follow Up Note - OP Signed Patient: Hailee Trivedi MR#: [id number] : 1940 Acct:[id number] Age/Sex: 78 / F Type: REG RCR Copies to: Curt Clark MD~ Subjective Date/Time of Service: Date of Service: 03/07/2019 Time of Service: 08:16 Chief Complaint: Follow up appt prior to treatment 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 [...] CVA 2018. SOCIAL HISTORY: Lives with in [place]. HPI: Hailee presents for routine follow up; [...] 6 mg and cyclophosphamide 300 mg IV uaypsa6008/15/2015, developed grade 2 anemia, fatigue and grade [...] Joseph Block M.D.01/02/2019 10:11 AM Dictation Location: [facility] Any impression(s) listed above is [...] for coordination of care (as documented) and lsck-va-mjax counseling of patient and/or family. Dictated By: Margarito Buenrostro MD DD/ 1016 Signed By: <Electronically signed by Margarito Buenrostro MD> 03/07/19 1022 [facility] Work Phone: [phone] Progress note Author Margarito Buenrostro [facility] January 10, 2019 8:49amNote Date/TimeFebruary 2018 8:[facility] [address] [address] Hem/Onc Follow Up Note - OP Signed Patient: Haliee Trivedi MR#: [id number] : 1940 Acct:[id number] Age/Sex: 78 / F Type: REG RCR Copies to: Curt Clark MD~ Subjective Date/Time of Service: Date of Service: 01/10/2019 Time of Service: 08:42 Chief Complaint: Follow up appt prior to treatment has had leg weakness 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 [...] CVA 2018. SOCIAL HISTORY: Lives with in [place]. HPI: Hailee presents for routine follow up; prior to Cycle 19 Daratumumab. Patient had sudden onset weakness during blood draw for her labs last week, she was evaluated by ER, CT head at that point did notevidence of bleeding. 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 Her legs are little weak,otherwise she has [...] 6 mg and cyclophosphamide 300 mg IV osuhbx0908/15/2015, developed grade 2 anemia, fatigue and grade [...] - Last 7 Days 01/02/19 09:35: Free Lemitar LC, Quant 14.9, Free Lambda LC, Quant 8.9, Free Lemitar/Lambda Ratio 1.67 H - Impressions ITS Impressions [...] Joseph Block M.D.01/02/2019 10:11 AM Dictation Location: [facility] Any impression(s) listed above is [...] for coordination of care (as documented) and gbzu-cn-ukzd counseling of patient and/or family. Dictated By: Margarito Buenrostro MD DD/ Signed By: <Electronically signed by Margarito Buenrostro MD> 01/10/19 0849 [facility] Work Phone: [phone] Progress note Author Anna Marie Mcnamara [facility] January 02, 2019 4:51pmNote Date/TimeFebruary 2018 4:[place] [address] Event Note Signed Patient: Hailee Trivedi MR#: [id number] : 1940 Acct:[id number] Age/Sex: 78 / F Adm Date: 9 Loc: Room: Type: [facility] Attending Dr: Margarito Buenrostro MD Copies to: [...] by Anna Marie Mcnamara MD> 01/02/19 1651 [facility] Work Phone: [phone]) [phone] Progress note Author Margarito Buenrostro [facility] November 15, 2018 8:49amNote Date/TimeJan2018 8:45[facility] [place] [address] Hem/Onc Follow Up Note - OP Signed Patient: Hailee Trivedi MR#: [id number] : 1940 Acct:[id number] Age/Sex: 78 / F Type: REG RCR Copies to: Curt Clark MD~ Subjective Date/Time of Service: Date of Service: 11/15/2018 Time of Service: 08:43 Chief Complaint: Follow up appt myloma no new concerns 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 [...] CVA 2018. SOCIAL HISTORY: Lives with in [place]. HPI: Hailee presents for routine follow up; [...] 6 mg and cyclophosphamide 300 mg IV lchiew1308/15/2015, developed grade 2 anemia, fatigue and grade [...] for coordination of care (as documented) and dmne-dm-xnde counseling of patient and/or family. Dictated By: Margarito Buenrostro MD DD/ Signed By: <Electronically signed by Margarito Buenrostro MD> 11/15/18 0849 [facility] Work Phone: [phone] Progress note Author Lisa Devine [facility] October 18, 2018 9:34amNote Date/TimeDece2017 9:30[facility] [place] [id number] Hem/Onc Follow Up Note - OP Signed Patient: Hailee Trivedi MR#: [id number] : 1940 Acct:[id number] Age/Sex: 78 / F Type: REG RCR Copies to: Curt Clark MD~ Subjective Date/Time of Service: Date of Service: 10/18/2018 Time of Service: 09:27 Chief Complaint: Patient here for one month follow up appointment for Multiple myeloma to be seen before C16 Daratumumab. 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 [...] DM-II, CKD-3. SOCIAL HISTORY: Lives with in [place]. HPI: Hailee presents for routine follow up; [...] 6 mg and cyclophosphamide 300 mg IV txczqh6108/15/2015, developed grade 2 anemia, fatigue and grade [...] HAILEE IgA 65, HAILEE IgM 38, Free Lemitar LC, Quant 15.8, Free Lambda LC, Quant 9.7, Free Lemitar/Lambda Ratio 1.63 10/13/18 09:10: PHA Creatinine Clear 24.3491112190, Sodium 137, Potassium 4.1, Chloride 107, CarbonDioxide [...] % (Auto) 64.5, Lymph % (Auto) 27.4, [place] % (Auto) 6.8, Eos % (Auto) 0.8, Baso % (Auto) 0.5, Neut # (Auto) 4.2, Lymph # (Auto) 1.8, [place] # (Auto) 0.4, Eos #(Auto) 0.1, Baso [...] for coordination of care (as documented) and cryr-gu-duvo counseling of patient and/or family. Dictated By: Lisa Devine DD/ 0927 Signed By: <Electronically signed by Lisa Devien> 10/18/18 0934 [facility] Work Phone: 1([phone]) [phone] Progress note Author Jacklyn Cornelius [facility] September 20, 2018 8:53amNote Date/TimeNov2017 8:43[facility] [place] at [address] [address] Hem/Onc Follow Up Note - OP Signed Patient: Hailee Trivedi MR#: [id number] : 1940 Acct:[id number] Age/Sex: 78 / F Type: REG RCR Copies to: Curt Clark MD~ Subjective Date/Time of Service: Date of Service: 09/20/2018 Time of Service: 08:38 Chief Complaint: Multiple myeloma follow up appt day of treatment continues to have some dizziness - Diagnosis DIAGNOSIS: 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 [...] DM-II, CKD-3. SOCIAL HISTORY: Lives with in [place]. HPI: Mrs. Bright is here today to [...] an MRI of the brain done at [place] under the direction of the neurologist. It [...] 6 mg and cyclophosphamide 300 mg IV dhotrw8108/15/2015, developed grade 2 anemia, fatigue and grade [...] - Last 7 Days 09/13/18 11:15: Free Lemitar LC, Quant 15.3, Free Lambda LC, Quant 13.0, Free Lemitar/Lambda Ratio 1.18 09/13/18 11:15: PHA Creatinine Clear [id number], Sodium 140, Potassium 4.6, Chloride 109, CarbonDioxide [...] % (Auto) 58.9, Lymph % (Auto) 30.7, [place] % (Auto) 8.9, Eos % (Auto) 1.2, Baso % (Auto) 0.3, Neut # (Auto) 3.5, Lymph # (Auto) 1.8, [place] # (Auto) 0.5, Eos #(Auto) 0.1, Baso [...] for coordination of care (as documented) and vonp-zj-glde counseling of patient and/or family. 25 - 35 minutes Dictated By: Jacklyn Cornelius MD DD/ 0838 Signed By: <Electronically signed by Jacklyn Cornelius MD> 09/20/18 0853 [facility] Work Phone: 1([phone]) 489-526009-26-2018 Progress note Author Margarito Buenrostro [facility] August 09, 2018 9:41amNote Date/TimeSeptember 2017 9:29[facility] [address] [address] Hem/Onc Follow Up Note - OP Signed Patient: Hailee Trivedi MR#: [id number] : 1940 Acct:[id number] Age/Sex: 78 / F Type: REG RCR Copies to: Curt Clark MD~ Subjective Date/Time of Service: Date of Service: 08/09/2018 Time of Service: 09:28 Chief Complaint: Follow up appt on treatment multiple myeloma has infected toothbeing treated - Diagnosis DIAGNOSIS: 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 [...] DM-II, CKD-3. SOCIAL HISTORY: Lives with in [place]. HPI: Mrs. Trivedi is seen as scheduled. [...] 6 mg and cyclophosphamide 300 mg IV veugkz7508/15/2015, developed grade 2 anemia, fatigue and grade [...] her MRI report (to be done in [place]). See in 5 weeks by SHAHID eBll, plan to repeat K/L ratio in 4 [...] for coordination of care (as documented) and jwxx-th-kquy counseling of patient and/or family. 25 - 35 minutes Dictated By: Margarito Buenrostro MD DD/ 6 Signed By: <Electronically signed by Margarito Buenrostro MD> 08/09/18 0941 [facility] Work Phone: 1(186) [phone] Progress note Author Margarito Buenrostro [facility] July 12, 2018 9:09amNote Date/TimeAugust 2017 8:33[facility] [place] [address] Hem/Onc Follow Up Note - OP Signed Patient: Hailee Trivedi MR#: [id number] : 1940 Acct:[id number] Age/Sex: 78 / F Type: REG RCR Copies to: Curt Clark MD~ Subjective Date/Time of Service: Date of Service: 07/12/2018 Time of Service: 08:33 Chief Complaint: Follow up appt treatment today - Diagnosis DIAGNOSIS: 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 [...] DM-II, CKD-3. SOCIAL HISTORY: Lives with in [place]. HPI: Mrs. Trivedi is seen as scheduled. [...] 6 mg and cyclophosphamide 300 mg IV fxtlxz5208/15/2015, developed grade 2 anemia, fatigue and grade [...] potassium 4.2, creatinine 2.55, calcium 8.7 Free Lemitar LC, Quant 14.0 mg/L (3.3-19.4) 06/28/18 10:45 Free Lambda LC, Quant 9.7 mg/L (5.7-26.3) 06/28/18 10:45 Free Lemitar/Lambda Ratio 1.44 (0.26-1.65) 06/28/18 10:45 Total Bilirubin [...] for coordination of care (as documented) and jxuj-zv-kqkx counseling of patient and/or family. 25 - 35 minutes Dictated By: Margarito Buenrostro MD DD/ 0833 Signed By: <Electronically signed by Margarito Buenrostro MD> 07/12/18 0909 [facility] Work Phone: 1([phone]) 121-716607-05-2018 Progress note Author Margarito Buenrostro [facility] May 18, 2018 8:51amNote Date/TimeJuly 2017 8:44am[facility] [place] [id number] Hem/Onc Follow Up Note - OP Signed Patient: Hailee Trivedi MR#: [id number] : 1940 Acct:[id number] Age/Sex: 78 / F Type: REG RCR Copies to: Curt Clark MD~ Subjective Date/Time of Service: Date of Service: 05/18/2018 Time of Service: 08:42 Chief Complaint: weak today - Diagnosis DIAGNOSIS: 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 [...] DM-II, CKD-3. SOCIAL HISTORY: Lives with in [place]. HPI: Mrs. Trivedi is seen as scheduled. [...] 6 mg and cyclophosphamide 300 mg IV gwmkwj5608/15/2015, developed grade 2 anemia, fatigue and grade [...] 7: 05/09/18 13:45 05/09/18 13:45 Labs: Free Lemitar LC, Quant 15.0 mg/L (3.3-19.4) 05/09/18 13:45 Free Lambda LC, Quant 10.8 mg/L (5.7-26.3) 05/09/18 13:45 Free Lemitar/Lambda Ratio 1.39 (0.26-1.65) 05/09/18 13:45 HbA1C 7.7 [...] for coordination of care (as documented) and nzqi-cn-wxae counseling of patient and/or family. Greater than 35 minutes Dictated By: Margarito Buenrostro MD DD/ 0875 Signed By: <Electronically signed by Margarito Buenrostro MD> 05/18/18 0851 [facility] Work Phone: [phone]) [phone] Progress note Author Margarito Buenrostro [facility] April 19, 2018 1:08pmNote Date/TimeJune 2017 8:33[facility] [place] [address] Hem/Onc Follow Up Note - OP Signed Patient: Hailee Trivedi MR#: [id number] : 1940 Acct:[id number] Age/Sex: 77 / F Type: REG RCR Copies to: Curt Clark MD~ Subjective Date/Time of Service: Date of Service: 04/19/2018 Time of Service: 08:32 Chief Complaint: Follow up appt - Diagnosis DIAGNOSIS: 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 [...] DM-II, CKD-3. SOCIAL HISTORY: Lives with in [place]. HPI: Mrs. Trivedi is seen as scheduled. [...] 6 mg and cyclophosphamide 300 mg IV etrmhk8808/15/2015, developed grade 2 anemia, fatigue and grade [...] for coordination of care (as documented) and wczp-qt-qhpt counseling of patient and/or family. 25 - 35 minutes Dictated By: Margarito Buenrostro MD DD/ 0832 Signed By: <Electronically signed by Margarito Buenrostro MD> 04/19/18 1156 [facility] Work Phone: 1([phone]) [phone] Progress note Author Margarito Buenrostro [facility] March 15, 2018 8:43amNote Date/TimeMay 2017 8:38am[facility] at [address] [address] Hem/Onc Follow Up Note - OP Signed Patient: Hailee Trivedi MR#: [id number] : 1940 Acct:[id number] Age/Sex: 77 / F Type: REG RCR Copies to: Curt Clark MD, Patrick MD~ Subjective Date/Time of Service: Date of Service: 03/15/2018 Time of Service: 08:37 Chief Complaint: Follow up appt - Diagnosis DIAGNOSIS: 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 [...] DM-II, CKD-3. SOCIAL HISTORY: Lives with in [place]. HPI: Mrs. Trivedi is seen as scheduled. She reports had lithotripsy, then she developed pain involving bilateral wrist, elbows, and shoulder, primarily in themuscle. She went to [place] ER, took x-rays, no acute process was [...] 6 mg and cyclophosphamide 300 mg IV arflje8808/15/2015, developed grade 2 anemia, fatigue and grade [...] Albumin 3.8 gm/dL (3.2-5.5) 03/08/18 11:50 Free Lemitar LC, Quant 18.6 mg/L (3.3-19.4) 03/08/18 11:50 Free Lambda LC, Quant 12.5 mg/L (5.7-26.3) 03/08/18 11:50 Free Lemitar/Lambda Ratio 1.49 (0.26-1.65) 03/08/18 11:50 Assessment and [...] delay Daratumumab to nextweek, orders placed. Continue Vwufomgsf207ro bid for Herpes Zoster prophylaxis. See in [...] for coordination of care (as documented) and juou-ee-yetj counseling of patient and/or family. 25 - 35 minutes Dictated By: Margarito Buenrostro MD DD/ Signed By: <Electronically signed by Margarito Buenrostro MD> 03/15/18 0843 [facility] Work Phone: [phone] Progress note Author Margarito Buenrostro [facility] January 18, 2018 10:51amNote Date/TimeMar2017 10:44[facility] [place] [address] Hem/Onc Follow Up Note - OP Signed Patient: Hailee Trivedi MR#: [id number] : 1940 Acct:[id number] Age/Sex: 77 / F Type: REG RCR Copies to: Curt Clark MD~ Subjective Date/Time of Service: Date of Service: 01/18/2018 Time of Service: 10:42 Chief Complaint: Follow up appt - Diagnosis DIAGNOSIS: 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 [...] DM-II, CKD-3. SOCIAL HISTORY: Lives with in [place]. HPI: Mrs. Trivedi is seen as scheduled. She reports double vision has improved after a triple to [place]. Her hearing is improving too. Fatigued as [...] 6 mg and cyclophosphamide 300 mg IV gaenvu5708/15/2015, developed grade 2 anemia, fatigue and grade [...] 7: 01/10/18 10:13 01/10/18 10:13 Labs: Free Lemitar LC, Quant 14.2 mg/L (3.3-19.4) 01/10/18 10:13 Free Lambda LC, Quant 11.4 mg/L (5.7-26.3) 01/10/18 10:13 Free Lemitar/Lambda Ratio 1.25 (0.26-1.65) 01/10/18 10:13 Assessment and [...] for coordination of care (as documented) and dvrj-wy-gmrs counseling of patient and/or family. 25 - 35 minutes Dictated By: Margarito Buenrostro MD DD/ 1042 Signed By: <Electronically signed by Margarito Buenrostro MD> 01/18/18 1051 [facility] Work Phone: [phone] Progress note Author Margarito Buenrostro [facility] November 23, 2017 10:25amNote Date/TimeJan2017 10:19[facility] [place] [address] Hem/Onc Follow Up Note - OP Signed Patient: Hailee Trivedi MR#: [id number] : 1940 Acct:[id number] Age/Sex: 77 / F Type: REG RCR Copies to: Curt Clark MD~ Subjective Date/Time of Service: Date of Service: 11/23/2017 Time of Service: 10:18 Chief Complaint: Follow up appt - Diagnosis DIAGNOSIS: 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 [...] 6 mg and cyclophosphamide 300 mg IV dupegg2508/15/2015, developed grade 2 anemia, fatigue and grade [...] 7: 11/16/17 08:35 11/16/17 08:35 Labs: Free Lemitar LC, Quant 17.9 mg/L (3.3-19.4) 11/16/17 08:35 Free Lambda LC, Quant 10.5 mg/L (5.7-26.3) 11/16/17 08:35 Free Lemitar/Lambda Ratio 1.70 (0.26-1.65) H 11/16/17 08:35 Assessment [...] to resume Daratumumab. -She will go to [place] in December, would like to resume therapy [...] for coordination of care (as documented) and spra-ft-krpe counseling of patient and/or family. 25 - 35 minutes Dictated By: Margarito Buenrostro MD DD/ 1018 Signed By: <Electronically signed by Margarito Buenrostro MD> 11/23/17 1025 [facility] Work Phone: [phone]) [phone] Progress note Author Margarito Buenrostro [facility] October 19, 2017 9:19amNote Date/TimeDece2016 8:42[facility] [place] [address] Hem/Onc Follow Up Note - OP Signed Patient: Hailee Trivedi MR#: [id number] : 1940 Acct:[id number] Age/Sex: 77 / F Type: REG RCR Copies to: Curt Clark MD, Jeffrey DO~ Subjective Date/Time of Service: Date of Service: 10/19/2017 Time of Service: 08:42 Chief Complaint: Follow up appt - Diagnosis DIAGNOSIS: 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 [...] 6 mg and cyclophosphamide 300 mg IV ffcgzw0508/15/2015, developed grade 2 anemia, fatigue and grade [...] 7: 10/14/17 13:43 10/14/17 13:43 Labs: Free Lemitar LC, Quant 15.6 mg/L (3.3-19.4) 10/14/17 13:43 Free Lambda LC, Quant 9.4 mg/L (5.7-26.3) 10/14/17 13:43 Free Lemitar/Lambda Ratio 1.66 (0.26-1.65) H 10/14/17 13:43 Assessment [...] for coordination of care (as documented) and hqbs-wz-kdmy counseling of patient and/or family. less than 15 minutes Dictated By: Margarito Buenrostro MD DD/ Signed By: <Electronically signed by Margarito Buenrostro MD> 10/19/17 0919 [facility] Work Phone: [phone] Progress note Author Margarito Buenrostro [facility] September 21, 2017 8:54amNote Date/TimeSeptember 21, 2017 8:50[facility] [place] [address] Hem/Onc Follow Up Note - OP Signed Patient: Hailee Trivedi MR#: [id number] : 1940 Acct:[id number] Age/Sex: 77 / F Type: REG RCR Copies to: Curt Clark MD, Jeffrey DO~ Subjective Date/Time of Service: Date of Service: 09/21/2017 Time of Service: 08:48 Chief Complaint: Follow up appt - Diagnosis DIAGNOSIS: 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 [...] 6 mg and cyclophosphamide 300 mg IV janpnl2108/15/2015, developed grade 2 anemia, fatigue and grade [...] 7: 09/15/17 10:45 09/15/17 10:45 Labs: Free Lemitar LC, Quant 14.4 mg/L (3.3-19.4) 09/15/17 10:45 Free Lambda LC, Quant 9.3 mg/L (5.7-26.3) 09/15/17 10:45 Free Lemitar/Lambda Ratio 1.55 (0.26-1.65) 09/15/17 10:45 Assessment and [...] for coordination of care (as documented) and ssqn-mc-apfh counseling of patient and/or family. 25 - 35 minutes Dictated By: Margarito Buenrostro MD DD/ Signed By: <Electronically signed by Margarito Buenrostro MD> 09/21/17 0854 [facility] Work Phone: [phone]) [phone] Progress note Author Margarito Buenrostro [facility] July 27, 2017 8:53amNote Date/TimeSeptember 2016 8:46[facility] [place] [address] Hem/Onc Follow Up Note - OP Signed Patient: Hailee Trivedi MR#: [id number] : 1940 Acct:[id number] Age/Sex: 77 / F Type: REG RCR cc: Curt Clark MD, Jeffrey DO Qadir, Abdul MD~ Subjective Date/Time of Service: Date of Service: 07/27/2017 Time of Service: 08:44 Chief Complaint: Follow up appt - Diagnosis DIAGNOSIS: 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 [...] 6 mg and cyclophosphamide 300 mg IV nwawcx3408/15/2015, developed grade 2 anemia, fatigue and grade [...] Chem 7: 07/21/17 08:50 07/21/17 08:50 Labs: Lemitar and lambda light chain levels low, and [...] for coordination of care (as documented) and asin-ms-avnl counseling of patient and/or family. 25 - 35 minutes Dictated By: Margarito Buenrostro MD DD/ Signed By: <Electronically signed by Margarito Buenrostro MD> 07/27/17 0884 [facility] Work Phone: Evaluation + Plan note Future Appointments Appointment Date:01/10/2023 10:45:00 AM Scheduled Provider:Tyree PARK MD Location:[facility] Appointment Type:URO Office Visit [facility] evaluation + Plan note Future Appointments Appointment Date:01/09/2024 08:45:00 AM Scheduled Provider:Tyree PARK MD Location:[facility] Appointment Type:URO Office Visit Diagnostic Tests Pending * Urine Cytology ([facility]) 01/10/23 [facility] evalartmax noteNo [facility] Other evalufjwto note* Diagnosis Onset Date Resolution Status Cerebellar stroke, acute acuteCKD (chronic kidney disease) stage 4, GFR 15-29 ml/minacuteDiabetes mellitus type II, controlledacuteDizzinessacuteHyperlipidemiaacuteMultiple myelomaacuteTransient left leg weaknessacuteAnemiachronicAtrial fibrillation zfvicdgV32 deficiency anemiachronicHearing losschronicHTN (hypertension)chronic 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chronicMultiple myeloma in remissionchronic Steroid-induced hyperglycemiachronicUnsteady gaitresolved [facility] Work Phone: Evaluation note* Diagnosis Persistent atrial fibrillation with RVR (CMS/HCC)- Primary Aortic valve regurgitation, nonrheumatic Ascending aorta dilation (CMS/HCC) Thoracic aneurysm without mention of rupture Essential hypertension Unspecified essential hypertension Pulmonary hypertension (CMS/HCC) Other chronic pulmonary heart diseases Stage 3a chronic kidney disease (CMS/HCC) documented in this encounter [facility] Work Phone: Evaluation note* Diagnosis Aortic valve regurgitation, nonrheumatic Ascending aorta dilation (CMS/HCC) Thoracic aneurysm without mention of rupture Pulmonary hypertension (CMS/HCC) Other chronic pulmonary heart diseases documented in this encounter [facility] Work Phone: Evaluation note* Diagnosis Aortic valve regurgitation, nonrheumatic Ascending aorta dilation (CMS/HCC) Thoracic aneurysm without mention of rupture Pulmonary hypertension (CMS/HCC) Other chronic pulmonary heart diseases documented in this encounter [facility] Work Phone: Evaluation note* Diagnosis Onset Date Resolution Status Cerebellar stroke, acute acuteCKD (chronic kidney disease) stage 4, GFR 15-29 ml/minacuteDiabetes mellitus type II, controlledacuteHyperlipidemiaacuteAtrial fibrillationchronic HTN (hypertension)chronic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chronicMultiple myeloma in remissionchronicUnsteady gaitresolvedCKD (chronic kidney disease) stage 4, GFR 15-29 ml/jyufffdyPgrwahyhczqmrsysbizTXH-AWFI-[id number] acidemiaacuteMultiple myelomaacuteSecondary hyperparathyroidism of renal origin acuteType 2 diabetes mellitus with chronic [facility] diseaseWay[facility] Work Phone: Evaluation note* Diagnosis Onset Date Resolution Status CKD (chronic kidney disease) stage 4, GF R 15-29 ml/min lyaqxVatccjlwfvpzvppyyxpAYC-IIVQ-[id number] acidemiaacuteMultiple myelomaacuteSecondary hyperparathyroidism of renal originacuteType 2 diabetes mellitus with chronic kidney diseaseacuteCerebellar stroke, acuteacuteCKD (chronic kidney disease) stage 4, GFR 15-29 ml/minacuteDiabetes mellitus type II, controlledacuteHyperlipidemiaacuteAtrial fibrillationchronicHTN (hypertension)chronic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chronicMultiple myeloma in remissionchronicUnskettering healthy [facility] Work Phone: Evaluation note* Diagnosis Onset Date Resolution Status Multiple myeloma acuteCerebellar stroke, acuteacuteCKD (chronic kidney disease) stage 4, GFR 15- 29 ml/minacuteDiabetes mellitus type II, controlledacuteHyperlipidemiaacute Atrial fibrillationchronicHTN (hypertension)chronic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chronicMultiple myeloma in remissionchronicUnsteady gaitresolvedUTI (urinary tract infection)[facility] Work Phone: Evaluation note* Diagnosis Essential [...] Never smoked tobacco documented in this encounter [facility] Work Phone: Evaluation note* Diagnosis Onset Date Resolution Status 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 acuteUTI (urinary tract infection)acuteCerebellar stroke, acuteacuteCKD (chronic kidney disease) stage 4, GFR 15-29 ml/minacuteDiabetes mellitus type II, controlledacuteHyperlipidemiaacuteAtrial fibrillationchronicHTN (hypertension) chronic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chronicMultiple myeloma in remission chronicUnsteady gaitresolved [facility] Work Phone: Evaluation note* Diagnosis [...] kidney disease) stage 4, GFR 15-29 ml/minacuteHyperkalemiaacute XdxnawaamlvnlgcbrlpTON-QNDI-[id number] acidemiaacuteMultiple myeloma acuteSecondary hyperparathyroidism of renal originacuteType 2 diabetes mellitus with chronic kidney diseaseacute [facility] Work Phone: Evaluation note* Diagnosis Onset Date Resolution Status CKD (chronic kidney disease) stage 4, GF R 15-29 ml/min acuteDepressionacuteHTN (hypertension)chronicMultiple myeloma in remission chronicCKD (chronic kidney disease) stage 4, GFR 15-29 ml/minacuteHyperkalemia acisfUmumxnurwhphnpthhymJUM-LSYE-[id number] acidemiaacuteMultiple myelomaacuteSecondary hyperparathyroidism of renal originacuteType 2 diabetes mellitus with chronic kidney diseaseacuteCerebellar stroke, acuteacuteCKD (chronic kidney disease) stage 4, GFR 15-29 ml/minacuteDiabetes mellitus type II, controlledacuteHyperlipidemiaacuteAtrial fibrillationchronicHTN (hypertension)chronic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chronicMultiple myeloma in remissionchronicUnsteady gaitresolved [facility] Work Phone: Evaluation note* Diagnosis Onset Date Resolution Status CKD (chronic kidney disease) stage 4, GF R 15-29 ml/min sswgpKfgcmtuhehzsqoskgUtwuerbnutetvzpuflbVDS-QROJ-[id number] acidemiaacuteMultiple myelomaacuteSecondary hyperparathyroidism of renal origin acuteType 2 diabetes mellitus with chronic kidney diseaseacuteCerebellar stroke, acuteacuteCKD (chronic kidney disease) stage 4, GFR 15-29 ml/minacuteDiabetes mellitus type II, controlledacuteHyperlipidemiaacuteAtrial fibrillationchronic HTN (hypertension)chronic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chronicMultiple myeloma in remissionchronicUnsteady gaitresolvedDiabetic neuropathyacuteHTN (hypertension)chronicChest painacuteCKD (chronic kidney disease) stage 4, GFR 15-29 ml/minacuteDiabetes mellitus type II, controlledacuteDyspneaacute HyperlipidemiaacuteHypomagnesemiaacuteWeaknessacuteAtrial fibrillationchronicHTN (hypertension)[facility] Work Phone: Evaluation note* Diagnosis Onset Date Resolution Status CKD (chronic kidney disease) stage 4, GF R 15-29 ml/min ulpmxYfeckxjmzfqokboeyNwtovsbnhibbqbfbabvVSD-XZJL-[id number] acidemiaacuteMultiple myelomaacuteSecondary hyperparathyroidism of renal origin acuteType [...] daily livingacuteWeaknessacuteAtrial fibrillationchronicHTN (hypertension)chronicMultiple myeloma in remissionchronic [facility] Work Phone: Evaluation note* Diagnosis Persistent [...] Never smoked tobacco documented in this encounter [facility] Work Phone: Evaluation note* Diagnosis Persistent atrial fibrillation with RVR (Multi)- Primary Typical atrial flutter (Multi) manager terminal current use of anticoagulant therapy BMI 31.0-31.9,adult documented in this encounter [facility] Work Phone: Evaluation note* Diagnosis Cerebellar infarct (CMS/HCC)- Primary Unspecified cerebral artery occlusion with cerebral infarction documented [facility]* Diagnosis Essential hypertension- Primary Unspecified essential hypertension Persistent atrial fibrillation with RVR (Multi) Atrial flutter, unspecified type (Multi) documented in this encounter [facility] Work Phone: Evaluation note* Diagnosis Persistent atrial fibrillation with RVR (Multi)- Primary Essential hypertension Unspecified essential hypertension Pulmonary hypertension (Multi) Other chronic pulmonary heart diseases Mixed hyperlipidemia Atrial flutter, unspecified type (Multi) Aortic valve regurgitation, nonrheumatic manager terminal current use of anticoagulant therapy Stage 3a chronic kidney disease (Multi) BMI 31.0-31.9,adult Never smoked tobacco documented in this encounter [facility] Work Phone: History general Narrative - Reported* Type Description Date Medical History HYPERTENSION Medical HistoryKIDNEY STONESMedical HistoryMULTIPLE MYELOMAMedical HistoryDM II Medical HistorySTAGE 4 CHRONIC KIDNEY DISEASEMedical HistoryHYPERLIPIDEMIA Medical HistoryCVA OF CEREBELLUMMedical HistoryKIDNEY STONESSurgical History cholecystectomySurgical Historytotal myiddiuisemz6355Pxxvbzqm History hemorrhoidectomySurgical HistoryCHEMO/2015Surgical Historylithotripsey03/09/18 Surgical ApmztxzStqnvfyfnagr0-33-3448Zrbvwqpo Historyleft kidney -30-97 Surgical HistoryLITHOTRIPSEY01/24/2020Surgical HistorySTENT REMOVAL03/03/2021 Surgical HistoryKIDNEY STONES X 3 WITH LASER02/19/2021Hospitalization HistorySEE ABOVE SURGERYHospitalization HistoryFR-DEHYDRATION/[id number] [employer] Other History general Narrative - Reported* Type Description Date Medical History HYPERTENSION Medical HistoryKIDNEY STONESMedical HistoryMULTIPLE MYELOMAMedical HistoryDM II Medical HistorySTAGE 4 CHRONIC KIDNEY DISEASEMedical HistoryHYPERLIPIDEMIA Medical HistoryCVA OF CEREBELLUMMedical HistoryKIDNEY STONESSurgical History cholecystectomySurgical Historytotal cwtbkswwcoaq1089Ujxswjdc History hemorrhoidectomySurgical HistoryCHEMO/2015Surgical Historylithotripsey03/09/18 Surgical UoblejoQuqlombausjf8-77-4167Samlulti Historyleft kidney mgcty9-32-33 Surgical HistoryLITHOTRIPSEY01/24/2020Surgical HistorySTENT REMOVAL03/03/2021 Surgical HistoryKIDNEY STONES X 3 WITH LASER02/19/2021Hospitalization HistorySEE ABOVE SURGERYHospitalization HistoryFR-DEHYDRATION/[id number] JgiihjwJBFGQ81/2021 [employer] Other hisNir[employer]ix general Narrative - Reported* Type Description Date Medical History HYPERTENSION Medical HistoryKIDNEY STONESMedical HistoryMULTIPLE MYELOMAMedical HistoryDM II Medical HistorySTAGE 4 CHRONIC KIDNEY DISEASEMedical HistoryHYPERLIPIDEMIA Medical HistoryCVA OF CEREBELLUMMedical HistoryKIDNEY STONESMedical HistoryCOVID [id number] HistorycholecystectomySurgical Historytotal [id number] Surgical HistoryhemorrhoidectomySurgical HistoryCHEMO/2015Surgical History lithotripsey03/09/18urgical [id number] Historyleft kidney -00-10Coxvkjrv HistoryLITHOTRIPSEY01/24/2020Surgical HistorySTENT REMOVAL03/03/2021urgical HistoryKIDNEY STONES X 3 WITH LASER02/19/2021 Hospitalization HistorySEE ABOVE SURGERYHospitalization History [facility]/[id number] GhwibftZOIIS65/2021 [employer] Other History of Present illness Narrative* Patient [...] assessment at [facility], which was negative. Couple of years ago. [...] of change in cardiac status or symptoms -[facility]-Arabella Gillis DO Work Phone: History of [...] assessment at [facility], which was negative. Couple of years ago. [...] of change in cardiac status or symptoms -[facility]-Arabella 250 DO Work Phone: Hospital course Narrative No data available for this section [facility] InstructionsNot on filedocumented in this encounter [facility] SystemInstructionsNot on filedocumented in this encounter [facility] SystemProgress note No data available for this section [facility] progress note Author Misti Connolly [facility] January 11, 2023 11:19amNote Date/TimeFebruary 2022 10:42[facility] at [address] [address] Hem/Onc Follow Up Note - OP Signed Patient: Hailee Trivedi MR#: [id number] : 1940 Acct:[id number] Age/Sex: 82 / F Type: REG RCR [...] daratumumab well. Within one month of starting imra in 2015 she had 95% reduction in [...] neurologist. Head CT done March 2022 at [facility] without new/acute findings. 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 [...] been trying to transfer her care to [place] [facility] clinic but they are not up [...] x 1 week, sees neurology (followed at [facility]) who have ruled out stroke, CT [...] for coordination of care (as documented) and wgzs-yc-copk counseling of patient and/or family. [facility] - Medical History Medical History: Medical History [...] 01/19/22 09:00 KB (Rec: 01/19/22 09:01 KB [id number]) Distress Screening Distress screening follow up: Will follow with patient for any needs at next visit. Anxious about making next appointment time. - Lab Results Diagram of Most Recent CBC and CMP 01/04/23 14:45 01/04/23 14:45 Labs - Last 7 Days 01/04/23 14:45: Free Lemitar LC, Quant 26.9 H, Free Lambda LC, Quant 12.0, Free Lemitar/Lambda Ratio 2.24 H 01/04/23 14:45: PHA Creatinine Clear 19.82, Sodium 137, Potassium 4.3, Chloride 108, Carbon Ckrkxbv50.9 L, Anion Gap 11.4, BUN 33 H, [...] % (Auto) 54.8, Lymph % (Auto) 34.1, [place] % (Auto) 8.0, Eos % (Auto) 2.3, Baso % (Auto) 0.8, Nucleat RBC Rel Count 0.0, Neut # (Auto) 4.9, Lymph # (Auto) 3.0, [place] # (Auto) 0.7, Eos # (Auto) 0.2, [...] <Electronically signed by RAMAKRISHNA Connolly> 01/11/23 1119 [facility] Work Phone: Progress note Author Misti Connolly [facility] January 31, 2024 1:03pmNote Date/TimeMarch 2023 2:56pm[facility] [place] [address] Cancer Center Note Signed Patient: Hailee Trivedi MR#: [id number] : 1940 Acct:[id number] Age/Sex: 83 / F Type: DEP AMB [...] well. Within one month of starting irma [id number] she had 95% reduction in K light [...] neurologist. Head CT done March 2022 at [facility] without new/acute findings. 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 [...] for multiple myeloma and go over labs [facility] Medical History Medical History (Updated 01/04/24 @ [...] <Electronically signed by RAMAKRISHNA Connolly> 01/31/24 1303 [facility] Work Phone: Reweod for referral (narrative)* Consultation (Routine) - AuthorizedSpecialtyDiagnoses / ProceduresReferred By Contact Referred To ContactCardiology Diagnoses Persistent atrial fibrillation with RVR (Multi) Procedures Follow Up In Cardiology Elicia Rhodes MD [address] [facility] [place] [address] Elicia hRodes MD [address] [facility] [place] [address] Referral IDStatusReasonStart DateExpiration DateVisits RequestedVisits [id number]/4/20246/ [facility] Work Phone: Rearsf for referral (narrative)No reason for referral information availableMetrohealth Parma Medical Center Work Phone: Summary Purpose [...] disease) stage 4, GFR 15-29 ml/min Hyperlipidemia [id number] Metabolic acidemia Multiple myeloma 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Reason for VisitCKD (chronic kidney disease) stage 4, GFR 15-29 ml/min Hyperlipidemia [id number] Metabolic acidemia Multiple myeloma Secondary hyperparathyroidism of [...] stage 4, GFR 15-29 ml/min Hyperkalemia Hyperlipidemia [id number] Metabolic acidemia Multiple myeloma 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 6 Month Follow UpReason for VisitCKD (chronic kidney disease) stage 4, GFR 15-29 ml/min Depression HTN (hypertension) Multiple myeloma in remission CKD (chronic kidney disease) stage 4, GFR 15-29 ml/min Hyperkalemia Hyperlipidemia [id number] Metabolic acidemia Multiple myeloma Secondary hyperparathyroidism of [...] stage 4, GFR 15-29 ml/min Hyperkalemia Hyperlipidemia [id number] Metabolic acidemia Multiple myeloma Secondary hyperparathyroidism of [...] stage 4, GFR 15-29 ml/min Hyperkalemia Hyperlipidemia [id number] Metabolic acidemia Multiple myeloma Secondary hyperparathyroidism of [...] stage 4, GFR 15-29 ml/min Hyperkalemia Hyperlipidemia [id number] Metabolic acidemia Multiple myeloma Secondary hyperparathyroidism of [...] 2024 8:18am Unknown October 12, 2024 8:52am Fpc Visit October 23, 2024 11:59pm assisted discharge f/u, BCC October 30, 2024 1:58pm Amb Documentation November 26, 2024 8 :00am VIRTUAL:[facility] November 28, 2024 1 0:36am Reason [...] 2024 8:18am Unknown October 12, 2024 8:52am Fpc Visit October 23, 2024 11:59pm assisted discharge f/u, BCC October 30, 2024 1:58pm [...] 2024 8:18am Unknown October 12, 2024 8:52am Fpc Visit October 23, 2024 11:59pm assisted discharge f/u, BCC October 30, 2024 1:58pm [...] 2024 8:18am Unknown October 12, 2024 8:52am Fpc Visit October 23, 2024 11:59pm assisted discharge f/u, BCC October 30, 2024 1:58pm [...] 2024 8:18am Unknown October 12, 2024 8:52am Fpc Visit October 23, 2024 11:59pm assisted discharge f/u, BCC October 30, 2024 1:58pm Amb Documentation November 26, 2024 8 :00am VIRTUAL:[facility] November 28, 2024 1 0:36am Multiple Myeloma. December 12, 2024 1 :03pm trouble breathing December 19, 2024 4 :18pm trouble breathing December 20, 2024 8 :30am Amb Documentation December 25, 2024 7:58am RENAL 6 MONTH F/U December 25, 2024 2:26pm IP [facility] December 26, 2024 10:49am Reason for [...] 2024 8:18am Unknown October 12, 2024 8:52am Fpc Visit October 23, 2024 11:59pm assisted discharge f/u, BCC October 30, 2024 1:58pm Amb Documentation November 26, 2024 8 :00am VIRTUAL:[facility] November 28, 2024 1 0:36am Multiple Myeloma. December 12, 2024 1 :03pm trouble breathing December 19, 2024 4 :18pm trouble breathing December 20, 2024 8 :30am Amb Documentation December 25, 2024 7:58am RENAL 6 MONTH F/U December 25, 2024 2:26pm IP [facility] December 26, 2024 10:49am [id number] January [...] MONTH F/U December 25, 2024 2:26pm IP [facility] December 26, 2024 10:49am [id number] January [...] MONTH F/U December 25, 2024 2:26pm IP [facility] December 26, 2024 10:49am [id number] January 02, 2025 7:28am Amb Documentation February 05, 2025 11: 42am HIGH RISK, TBH/Dehydration/diahrea February 11, 2025 10:52am Typical a flutter, mcc high risk m ed use February 26, [...] MONTH F/U December 25, 2024 2:26pm IP [facility] December 26, 2024 10:49am [id number] January 02, 2025 7:28am Amb Documentation February 05, 2025 11: 42am HIGH RISK, TBH/Dehydration/diahrea February 11, 2025 10:52am Typical a flutter, mcc high risk m ed use February 26, [...] hypertension (CMS/HCC) Procedures Transthoracic Echo (TTE) Complete IA ECHO TRANSTHORC R-T 2D W/WO M-MODE REC F-UP/LMTD IA DOP ECHOCARD COLOR FLOW VELOCITY MAPPING IA DOP ECHOCARD PULSE WAVE W/SPECTRAL F-UP/LMTD STD Traboulssi, Mourhaf, MD [address] [place] [address] Referral IDStatusReasonStsherburne DateExpiration DateVisits RequestedVisits [id number] Review Perform Procedure [id number] / ProceduresReferred By ContactReferred To Contact Diagnoses Persistent atrial fibrillation with RVR (CMS/HCC) Procedures ECG 12 Lead Elicia Rhodes MD [address] [place] [address] Referral IDStatusReasonStsherburne DateExpiration DateVisits RequestedVisits [id number] [id number] / ProceduresReferred By ContactReferred To ContactCardiology Diagnoses Persistent atrial fibrillation with RVR (CMS/HCC) Aortic valve regurgitation, nonrheumatic Ascending aorta dilation (CMS/HCC) Procedures Follow Up In Cardiology Elicia Rhodes MD [address] [place] [address] Elicia Rhodes MD [address] [place] [address] Referral IDStatusReasonBaldwin DateExpiration DateVisits RequestedVisits [id number]/21/202311/20/202411 Additional Source Comments INFORMATION SOURCE (unrecogn ized section and content) DATE CREATED AUTHOR 10/19/2019 [facility] DATE CREATED AUTHOR AUTHOR'S ORGANIZ ATION 03/24/2023 [facility] DATE CREATED AUTHOR AUTHOR'S ORGANIZ ATION 03/26/2023 [facility] DATE CREATED AUTHOR AUTHOR'S ORGANIZ ATION 03/26/2023 [facility] DATE CREATED AUTHOR AUTHOR'S ORGANIZ ATION 07/29/2024 [facility] DATE CREATED AUTHOR AUTHOR'S ORGANIZ ATION 03/26/2025 [facility] DATE CREATED AUTHOR AUTHOR'S ORGANIZ ATION 05/28/2025 [facility] DATE CREATED AUTHOR AUTHOR'S ORGANIZ ATION 08/22/2025 [facility] DATE CREATED AUTHOR AUTHOR'S ORGANIZ ATION 08/25/2025 [facility] REASON FOR VISIT (unrecogniz ed section and content) ReasonCommentsFollow-up6m with ekgSpecialtyDiagnoses / ProceduresReferred By ContactReferred To Contact Diagnoses Persistent atrial fibrillation with RVR (CMS/HCC) Procedures ECG 12 Lead Elicia Rhodes MD [address] [place] [address] Referral IDStaM[facility]let[facility] DateExpiration DateVisits RequestedVisits [id number] [id number] / ProceduresReferred By ContactReferred To ContactCardiology Diagnoses Aortic valve regurgitation, nonrheumatic Ascending aorta dilation (CMS/HCC) Pulmonary hypertension (CMS/HCC) Procedures Transthoracic Echo (TTE) Complete IA ECHO TRANSTHORC R-T 2D W/WO M-MODE REC F-UP/LMTD IA DOP ECHOCARD COLOR FLOW VELOCITY MAPPING IA DOP ECHOCARD PULSE WAVE W/SPECTRAL F-UP/LMTD STD Elicia Rhodes MD [address] [place] [address] Referral IDSMetroHealth [facility] DateExpiration DateVisits RequestedVisits [id number] Review Perform Procedure [id number]-rw2 monthsSpecialtyDiagnoses / ProceduresReferred By ContactReferred To ContactCardiology Diagnoses Persistent atrial fibrillation with RVR (Multi) Aortic valve regurgitation, nonrheumatic Ascending aorta dilation (CMS-HCC) Procedures Follow Up In Cardiology Elicia Rhodes MD [address] [place] [address] Elicia Rhodes MD [address] [facility] [address], [place] [id number] Referral IDStatusReasonStart DateExpiration DateVisits RequestedVisits [id number]/21/202311/743766EqxqasOyjkqignJtipxh-ll3 month SpecialtyDiagnoses / ProceduresReferred By ContactReferred To ContactCardiology Diagnoses Persistent atrial fibrillation with RVR (Multi) Procedures Follow Up In Cardiology Elicia Rhodes MD [address] [facility], [place] [address] Phone: tel: fax: Elicia Rhodes MD [address], [place] [phone] Phone: tel: fax: Referral IDStatusReasonStart DateExpiration DateVisits RequestedVisits [id number]/4/20246/346231QiklceUoiqntdcEazjgm-egZwlxuv FibrillationEKG visitSpecialtyDiagnoses / ProceduresReferred By ContactReferred To Contact Diagnoses Persistent atrial fibrillation with RVR (Multi) Procedures ECG 12 Lead Elicia Rhodes MD [address] [facility] [address], [place] [id number] Phone: tel: fax: Referral IDStatusReasonStart DateExpiration DateVisits RequestedVisits [id number]/17/20251/780702JbhbmiJwcminkvVPB visitSpecialty Diagnoses / ProceduresReferred By ContactReferred To Contact Diagnoses Persistent atrial fibrillation with RVR (Multi) Procedures ECG 12 Lead Elicia Rhodes MD [address] [facility], [place] [id number] Phone: tel: fax: Referral IDStatusReasonStart DateExpiration DateVisits RequestedVisits [id number]/27/20251/27/587936TeripvWdfthtajQsfuca-uiJcc Dr. Rhodes Follow up for Atrial FibrillationSpecialtyDiagnoses / Procedures Referred By ContactReferred To Contact Diagnoses Typical atrial flutter (Multi) Procedures ECG 12 Lead Jerrica Overton, DIVISION SUPERINTENDENT-DIRECTOR OF CONTRACTS [address], [address] [place] [id number] Phone: tel: fax: Referral IDStatusReasonStart DateExpiration DateVisits RequestedVisits [id number]/8/20254/8/711227FkwrweLqxiveesIifsklGsjwgxDolwlocg Follow-up1 week BP check cardioversionSpecialtyDiagnoses / ProceduresReferred By ContactReferred To ContactCardiology Diagnoses Essential hypertension Procedures Follow Up In Cardiology Elicia Rhodes MD [address], [address] [place], [place] [id number] Phone: tel: fax: Elicia Rhodes MD [address], [address] [place] [phone] Phone: tel: fax: Referral IDStatusReasonStart DateExpiration DateVisits RequestedVisits [id number]/7/20255/7/962722RoedmsXwbnkuzgHztnoz-ko3 month Follow up for HypertensionSpecialtyDiagnoses / ProceduresReferred By Contact Referred To ContactCardiology Diagnoses Essential hypertension Procedures Follow Up In Cardiology Elicia Rhodes MD [address], [address] [place] [address] Phone: tel: fax: Elicia Rhodes MD [address], [address] [address] Phone: tel: fax: Referral IDStatReasonStart DateExpiration DateVisits RequestedVisits [id number]/19/202412/19/202511 Care Teams (unrecognized sec tion and content) [...] Team Status: Active Member Role Status Betsy Clakr MD Primary Care Provider Active Start: December [...] DateEnd Date Curt Clark MD PCP - [facility]12/10/14Team MemberRelationshipSpecialtyStart DateEnd Date Curt Clark MD [address] [place] [address] [place] [address] PCP - [facility]10/22/23Team MemberRelationshipSpecialtyStart [place] [address] [place] [address] [place] [address] PCP - [facility]10/22/23 Team Status: Inactive Member Role Status Dates [...] DateEnd Date Curt Clark MD PCP - [facility]10/22/23 Team Status: Active Member Role Status Dates [...] 2024Team MemberRelationshipSpecialtyStart DateEnd Date Curt Clark MD [address] [place] [phone] [facility] - [facility]06/29/23 Team Status: Active Member Role Status Dates Curt Clark MD Primary Care Provider Active Start: September 14, 2024 KRI[facility]EN [facility] ProviderActiveStart: September 14, 2024 Team Status: Active [...] Pretty , APRNOther ProviderActiveStart: September 18, 2024 Gwinner Colette Morgan Jr, DOOther ProviderActiveStart: September 18, 2024 Team Status: Active Member Role Status Dates Curt Clark MD Primary Care Provide r, Attending Provider Active Start: September 19, 2024 Team MemberRelationshipSpecialtyStart DateEnd Date Curt Clark MD [facility] [place] [address] PCP - [facility] Medicine06/29/23Team MemberRelationshipSpecialtyStart DateEnd Date Curt Clark [facility] Pxediaiq84/9/23 Team Status: Active Member Role Status Dates [...] Provider Active Start: October 12, 2024 Renetta Mmcanus CMAAttending ProviderActiveStart: October 12, 2024 Team Status: [...] Provider Active Start: November 26, 2024 Renetta Mmcanus CMAAttending ProviderActiveStart: November 26, 2024 Team MemberRelationshipSpecialtyStart DateEnd Date Curt Clark MD [facility] Hfgwusue91/9/23 Team Status: Active Member Role Status Dates [...] DateEnd Date Curt Clark MD [facility]/22/23Team MemberRelationshipSpecialtyStart DateEnd Date Curt Clark MD [facility] Cucpmeut80/9/23 Team Status: Inactive Member Role Status Dates Curt Clark MD Primary Care Provide r, Attending Provider Active Start: March 14, 2025 End: March 14, 2025Team MemberRelationshipSpecialtyStart DateEnd Date Curt Clark MD [address] [facility] [place] [address] [facility]CP - [facility]06/29/23Team MemberRelationshipSpecialtyStart DateEnd Date Curt Clark MD [address] [facility] [place] [id number] PCP - [facility]06/29/23Team MemberRelationshipSpecialtyStart DateEnd Date Curt Clark MD PCP - [facility]10/22/23Team MemberRelationshipSpecialtyStart DateEnd Date Curt Clark MD [address] [facility] [place] [phone] PCP - [facility]06/29/23Team MemberRelationshipSpecialtyStart DateEnd Date Curt Clark MD [address] [facility] [place] [address] PCP - [facility]06/29/23Team MemberRelationshipSpecialtyStart DateEnd Date Curt Clark MD PCP - [facility]10/22/23 Goals (unrecognized section and content) Goals may [...] BE BASED ON THE PRIMARY CLINICAL RECORDS. [facility]. provides no warranty or guarantee of the accuracy or completeness of information in this document.
[2025-10-15 14:37] LABS: Hematocrit 38.6 % (36.0-48.0); Hemoglobin 12.6 g/dL (12.0-16.0); Immature Granulocytes Abs Auto 0.02 10^3/uL (0.00-0.03); Immature Granulocytes Pct Auto 0.2 % (0.0-0.5); Lymphocytes Absolute Auto 1.8 10^3/uL (1.2-3.8); Mean Corpuscular HGB Conc 32.6 g/dL (29.9-35.2); Mean Corpuscular Hemoglobin 31.6 pg (26.7-34.0); Mean Corpuscular Volume 96.7 fL (81.0-99.0); Platelet Count 193 10^3/uL (150-450); Red Blood Count 3.99 10^6/uL (4.20-5.40); White Blood Count 9.5 10^3/uL (4.0-11.0)
[2025-10-15 14:48] VITALS: BP 115/80
[2025-10-15 14:55] LABS: Alanine Aminotransferase 16 U/L (14-59); Albumin Globulin Ratio 0.8; Albumin Level 3.1 g/dL (3.4-5.0); Alkaline Phosphatase 141 U/L (46-116); Anion Gap 13.6; Aspartate Amino Transferase 14 U/L (15-37); Blood Urea Nitrogen 34.0 mg/dL (7.0-18.0); Calcium 8.8 mg/dL (8.5-10.1); Carbon Dioxide 24.7 mmol/L (21.0-32.0); Chloride 107 mmol/L (98-107); Estimated GFR (African America 22 (>=60 mL/min/1.73m^2); Estimated GFR (Non-African Ame 18 (>=60 mL/min/1.73m^2); Globulin 4.0 g/dL; Glucose 122 mg/dL (74-106); Magnesium 2.2 mg/dL (1.8-2.4); Potassium 5.3 mmol/L (3.5-5.1); Sodium 140 mmol/L (136-145); Total Protein 7.1 g/dL (6.4-8.2)
[2025-10-15 14:55] LABS: Glucose Urine UA NEGATIVE (NEGATIVE)
--- NOTE | 2025-10-15 14:57 | CT_ITS ---
The [address] [address] Patient Name: MARTHA GOMEZ MRN: [id number] date: 1940 Sex: F Assigned Patient Location: ER Current Patient Location: ER Accession/Order Number: [id number] Exam Date: 10/15/2025 14:53 Report Date: 10/15/2025 15:34 At the request of: DEANNA BRADLEY Procedure: CT head/brain wo con CT BRAIN WITHOUT CONTRAST: CLINICAL HISTORY: Weakness COMPARISON: CT 10/10/2024 TECHNIQUE: Contiguous axial unenhanced images were obtained through the brain. This CT exam was performed using one or more following dose reduction techniques: Automated exposure control, adjustment of the mA and/or kV according to patient size, or use of iterative reconstruction technique. FINDINGS: There is no evidence of midline shift, intra or extra-axial fluid collection, hemorrhage or CT evidence of acute large vascular distribution stroke. Central involutional changes and chronic small vessel ischemic disease. Remote areas of gliosis right lateral and inferior cerebellum related to prior stroke. Remote right caudate head lacunar stroke. Otherwise minor chronic small vessel ischemic disease. There are vascular calcifications. Diffuse dural calcifications noted.. Visualized intraorbital contents appear unremarkable. Acute on chronic left sphenoid sinus disease with air-fluid level. The surrounding soft tissues are normal. CT/CT head/brain wo con IMPRESSION: NO ACUTE INTRACRANIAL ABNORMALITY. CHRONIC MICROVASCULAR CHANGES WITH REMOTE AREAS OF STROKE NOTED ABOVE. Impression dictated by: Rolando Stringer M.D. 10/15/2025 3:34 PM Dictation Location: [place] [address] Electronically authenticated by: [id number] Y Date: 10/15/2025 15:34
[2025-10-15 15:17] LABS: Cast Seen? NONE SEEN #/LPF (NONE SEEN); Crystals Seen? None Seen #/HPF (None Seen)
[2025-10-15 15:18] LABS: Urine Culture Indicated NO
[2025-10-15] MEDS: 0.9 % SODIUM CHLORIDE 500 ML IV (16:37)
== END 2025-10-15 17:33 | disposition home or self-care (01) ==
PROVIDERS: Nurse Practitioner Family; Emergency Provider Emergency Medicine; PCP Family Medicine
DX: R53.1 Weakness (principal); R20.2 Paresthesia of skin; I69.354 Hemiplegia and hemiparesis following cerebral infarction affecting left non-dominant side
CPT/HCPCS: 36415; 70450; 80053; 81001; 83735; 85025; 93005; 99285